=== PATIENT | female | born 1975 | race Caucasian/White ===

== ENCOUNTER → 2022-02-23 12:03 | Outpatient (CLI) | payer MEDICAID, SELFPAY ==
[2022-02-23 18:50] LABS: Basophils # 0.1 K/mm3 (0-0.2); Basophils % 0.7 % (0.1-2.0); Eosinophils # 0.2 K/mm3 (0.0-0.4); Eosinophils % 1.7 % (0.1-12.0); Hematocrit 45.1 % (37.0-47.0); Lymphocytes # 2.2 K/mm3 (0.7-4.5); Lymphocytes % 22.6 % (10-50); Mean Corpuscular Hemoglobin 27.4 pg (27.0-31.2); Mean Corpuscular Volume 88.2 fl (81-99); Mean Platelet Volume 8.8 fl (7.4-10.4); Monocytes # 0.5 K/mm3 (0.1-1.0); Monocytes % 4.9 % (1.7-9.3); Neutrophils # 6.8 K/mm3 (1.8-7.8); Neutrophils % 70.2 % (37.0-80.0); Platelet Count 351 K/mm3 (142-424); Red Blood Count 5.11 M/mm3 (4.20-5.40); Red Cell Distribution Width 16.9 % (11.5-17.5); White Blood Count 9.7 K/mm3 (4.8-10.8)
[2022-02-23 19:19] LABS: Alanine Aminotransferase 31 U/L (12-78); Albumin Level 3.5 g/dl (3.5-5.0); Albumin/Globulin Ratio 1.3 (1.1-1.8); Alkaline Phosphatase 135 U/L (38-126); Anion Gap 10.3 mEq/L (5-15); Aspartate Amino Transferase 29 U/L (14-36); Bilirubin,Total 0.4 mg/dl (0.2-1.3); Blood Urea Nitrogen 11 mg/dl (7-17); Calcium 8.9 mg/dl (8.4-10.2); Carbon Dioxide 29 mmol/L (22.0-30.0); Chloride 103 mmol/L (98-107); Chol/HDL Ratio 7.4 (1-3.5); Cholesterol 148 mg/dl (140-200); Estimated Glomerular Filt Rate 133 ml/min (>60); GFR (African American) 161 ML/MIN (>60); Globulin 2.6 g/dL (1.3-3.2); Glucose 111 mg/dl (74-100); HDL Cholesterol 20 mg/dl (40-60); Potassium 4.3 mmoL/L (3.5-5.1); Sodium 138 mmol/L (136-145); Total Protein,Serum 6.1 g/dl (6.3-8.2); Triglycerides 260 mg/dl (30-150); VLDL Cholesterol 52 mg/dL (0-40)
[2022-02-23 19:28] LABS: Hemoglobin A1C 5.9 % (4.0-6.0)
[2022-02-23 19:37] LABS: 25-OH Vitamin D, Total 27.7 ng/mL (30-100)
[2022-02-23 19:50] LABS: Thyroid Stimulating Hormone 3.36 uIU/mL (0.465-4.68)
== END ==
PROVIDERS: PCP Emergency Medicine; Visit Provider Nurse Practitioner Family
DX: D64.9 Anemia, unspecified (principal); R73.03 Prediabetes; J44.9 Chronic obstructive pulmonary disease, unspecified; E55.9 Vitamin D deficiency, unspecified; E66.01 Morbid (severe) obesity due to excess calories; Z68.43 Body mass index [BMI] 50.0-59.9, adult
CPT/HCPCS: 80053; 80061; 82306; 83036; 84436; 84443; 85025

== ENCOUNTER → 2022-04-27 13:11 | Outpatient (CLI) | payer MEDICAID, SELFPAY ==
--- NOTE | 2022-04-27 | CA_ITS ---
APPROVED REPORT EXAM: Comprehensive 2D, Doppler, and color-flow Echocardiogram Radiology Specialist: India Blake, KENDAL, RVS Ht: 5 ft 9 in Wt: 391lbs BSA: 2.75 BP: 132/78 mmHg Indications: SOB, COPD, Smoker, Morbid obesity, DM Echo Enhancing Agent Indication: pt declined contrast Comments: Technically limited exam due to extreme body habitus. 2D Dimensions IVSd 1.28 cm LVEF (Visual) 70.90 % PWd 1.03 cm LVDd 5.35 cm LVDs 3.18 cm Aortic Root 2.69 cm Left Atrium 3.70 cm LVOT 2.08 cm (M/F) 1.5-2.5 M-Mode Dimensions LA Diam 3.86 cm (1.9-4.0) Ao Diam 3.25 cm (2.0-3.7) EPSs 0.51 cm LV Diastology E Decel Time 220.00 (160-240 msec) E/A Ratio 1.08 MED E' 8.70 (< 7 cm/sec) MED A' 10.30 cm/s E'/MED E' Ratio 10.28 (>14) LAT E' 9.40 (<10 cm/sec) LAT A' 10.00 cm/s E/LAT E' Ratio 9.51 (>14) Aortic Valve LVOT Max 121.00 (70-110 cm/s) LVOT VTI 27.93 cm AoV Peak Charly. 163.00 (50-130 cm/s) AO Peak GR. 10.60 mmHg AO Mean GR. 5.20 (<5 mmHg) AO VTI 31.06 (18-25 cm) TIEN (VTI) 3.06 (2.5-4.5 cm2) Mitral Valve MV A Velocity 83.00 (40-130 cm/s) E/A Ratio 1.08 MV Decel. Time 220.00 (160-240 ms) Pulmonary Valve PV Peak Velocity 109.00 (50-150 cm/s) Tricuspid Valve TR P. Velocity 162.00 cm/s Left Ventricle Technically difficult study because of the patient factors and poor acoustic windows. Left atrium is mildly enlarged, left ventricle is normal size mild concentric left ventricular hypertrophy, estimated ejection fraction 55% with no regional wall motion abnormality, endocardial surfaces are poorly visualized, diastolic parameters are inconclusive. Right Ventricle Right atrium and right ventricle mildly enlarged with normal contractility. Aortic Valve Aortic valve is minimally thickened and fibrosed there is no aortic stenosis or aortic insufficiency. Mitral Valve Mitral valve is grossly normal there is trace mitral regurgitation. Tricuspid Valve Tricuspid valve grossly normal, there is trace tricuspid regurgitation, tricuspid regurgitation jet velocity is inadequate for calculation of the right ventricular systolic pressure. Pulmonic Valve Pulmonic valve is poorly visualized. Great Vessels Aortic root is normal size. Inferior vena cava is mildly dilated with less than 50% inspiratory collapse. Pericardium No significant pericardial effusion noted. Conclusion 1. Biatrial enlargement, normal left ventricular size, mild concentric left ventricular hypertrophy, estimated ejection fraction 55% with LAD wall motion abnormality, diastolic parameters are inconclusive in the study. 2. Mildly enlarged right ventricle with normal contractility. 3. Trace mitral and tricuspid regurgitation. 4. No significant pericardial effusion. 5. Inferior vena cava is mildly dilated with less than 50% inspiratory collapse. Electronically signed by : Christian Durant MD 04/27/2022 19:29:46
[2022-04-27 13:40] VITALS: PULSE 84; PULSE 87
== END ==
PROVIDERS: PCP Nurse Practitioner Family; Visit Provider Nurse Practitioner Family
DX: R06.02 Shortness of breath (principal); J44.9 Chronic obstructive pulmonary disease, unspecified
CPT/HCPCS: 93306; 94060; 94618; 94640; 94727; 94729

== ENCOUNTER → 2022-04-29 16:10 | Outpatient (CLI) | payer MEDICAID, SELFPAY ==
--- NOTE | 2022-04-29 16:10 | MM_ITS ---
PROCEDURE INFORMATION: Exam: MG Bilateral Screening 3D Mammography Exam date and time: 04/29/2022 4:10 PM Age: 46 years old Clinical indication: Screening examination. No family history of breast cancer. No history of breast intervention. TECHNIQUE: Imaging protocol: Bilateral Screening tomosynthesis and 2D mammography including computer-aided detection (CAD) when performed. COMPARISON: No relevant prior studies available.If prior mammograms are provided, I am happy to add an addendum. FINDINGS: MAMMOGRAPHY: Breast composition: The breasts are almost entirely fatty. Mass: None. Architectural distortion: None. Calcifications: No suspicious calcifications. Asymmetric density/Skin thickening: Possible right periareolar skin thickening and right retroareolar patchy asymmetry. Axillary adenopathy: None. IMPRESSION: Comparison to prior mammograms will be most helpful. If these are not provided within 2 weeks, patient will be recalled for right diagnostic mammogram with spot compression in the CC and MLO views as well as right breast ultrasound further evaluation of possible right periareolar skin thickening and right retroareolar patchy asymmetry. ASSESSMENT: BI-RADS Category 0: Incomplete- Need Additional Imaging Evaluation and/or Prior Mammograms for Comparison
== END ==
PROVIDERS: PCP Nurse Practitioner Family; Visit Provider Nurse Practitioner Family
DX: Z12.31 Encounter for screening mammogram for malignant neoplasm of breast (principal)
CPT/HCPCS: 77063; 77067

== ENCOUNTER → 2022-06-02 11:28 | Outpatient (CLI) | payer MEDICAID, SELFPAY ==
--- NOTE | 2022-06-02 11:28 | NM_ITS ---
APPROVED REPORT Exam: Nuclear Stress Test Indication: chest pain..short of breath..fatigue..abn ECG..abn Echo Patient Location: Outpatient Stress Tech: Leatha Michele [place] Tech:GUME Larson RT(R)(N) Ht: 5 ft 10 in Wt: 378 lbs Bra Size: 6x HR: 38 bpm BP: 135/83 mmHg BSA: 2.74 m2 TID: 1.22 BMI: 54.2 History: chest pain..short of breath..fatigue..abn ECG..abn Echo Procedure: Patient received a 0.4 mg of intravenous Lexiscan, resting heart rate 38 bpm, resting blood pressure 135/83 mmHg, with Lexiscan maximum heart rate achived was 91 bpm which is Less than 85 % of the maximum predicted heart rate and blood pressure was 162/100 mmHg. With Lexiscan, patient denied any complaint of chest pain. Patient was unable to lay on her belly for prone images. Electrocardiogram Resting electrocardiogram shows sinus rhythm, with Lexiscan less than 1.[address] segment depression noted from the baseline EKG. The EKG portion of the Lexiscan is nondiagnostic. Cardiac Stress and Resting SPECT Images: Cardiac Stress and Resting SPECT images were obtained using technetium 99m Myoview 32.7 mCi stress and 10.46 mCi at rest. Gated SPECT analysis of segmental wall motion and calculation of the ejection fraction also done. Cardiac stress and rest SPECT may show uniform myocardial activity without segmental perfusion abnormality, computer derived ejection fraction is over 65% with no regional wall motion abnormality, right ventricle is normal size and contractility. Conclusion: 1. The EKG portion of the Lexiscan is nondiagnostic. 2. No scintigraphic evidence of reversible ischemia seen, computer derived ejection fraction is over 65% with no regional wall motion abnormality, right ventricle is normal size and contractility. 3. Normal Lexiscan Myoview study. Electronically signed by : Christian Durant MD 06/02/2022 19:27:10
--- NOTE | 2022-06-02 13:15 | CA_ITS ---
APPROVED REPORT Exam: Pharmacologic Technologist: Leatha Michele, Ht: 5 ft 9 in Wt: 383 lbs BSA: 2.72 m2 HR: 66 bpm BP: 135/83 mmHg Indications: SOB Medical History Medications: Spiriva,,,,, Lexapro,,,,, Albuterol,,,,, Vit D3,,,,, Vistaril,,,,, Stress Test Details Test: LEXISCAN Reason for pharmacologic stress test: physical limitation. HR Resting HR: 38 bpm Max Heart Rate (APMHR): 175.958751 bpm Max HR Achieved: 91 bpm Target HR (85% APMHR): 148.226138 bpm % of APMHR: 52.00 Recovery HR: 80 bpm BP Resting BP: 135/83 mmHg Max BP: 162/100 mmHg Recovery BP: 146.0/89.0 mmHg ECG Resting ECG: NSR, right axis deviation, low voltage QRS, early repolarization changes Clinical Exercise duration: 04:00 min Highest Stage Achieved: Exercise capacity: 1.0 METs Stress ECG Conclusion Symptoms: SOA, mild stomach & head discomfort. No CP. Arrhythmias/Ectopy: None ST-T Changes: No significant changes. Conclusion: Unremarkable Lexiscan stress. Myoview images reported separately. Test Summary REST . . . . . . . Resting REST 04:43 . . 38 . 135/ 83 . . Stage 1 01:00 . . 18 . . . . Stage 2 01:00 . . . . . . . Stage 3 01:00 . . 56 . 162/100 . . Stage 4 01:00 . . 58 . 155/ 93 . Stop exercise at 04:00 RECOVERY 01:00 . . . . . . . RECOVERY 02:00 . . 47 . 147/ 87 . . RECOVERY 03:00 . . 86 . 146/ 89 . . RECOVERY 03:18 . . 70 . 146/ 89 . . Electronically signed by : Christian Durant MD 06/02/2022 19:25:06
== END ==
PROVIDERS: PCP Nurse Practitioner Family; Visit Provider Physician Assistant
DX: R06.02 Shortness of breath (principal)
CPT/HCPCS: 78452; 93017; A9502; J2785

== ENCOUNTER → 2022-06-10 07:33 | Outpatient (CLI) | payer SELFPAY ==
--- NOTE | 2022-06-10 07:40 | CT_ITS ---
FINAL REPORT CLINICAL HISTORY: heart palpitation, abn ekg, family hx Acute MO FINDINGS: CT CORONARY CALCIUM SCORE W/O TECHNIQUE: Thin-section axial images were obtained through the heart and coronary arteries per CT coronary calcium score protocol. This study was performed with techniques to keep radiation doses as low as reasonably achievable (ALARA). Individualized dose reduction techniques using automated exposure control or adjustment of mA and/or kV according to the patient's size were employed. FINDINGS: There is artifact on the images and the printed report is felt to be erroneous. On the axial images, there is no calcification seen. This gives a coronary artery calcium score of 0 based on the Agatston scale. This coronary artery calcium score places the patient within the 10th percentile based on age and gender. The heart size is normal. There is no pleural or pericardial effusion. Limited evaluation of the lungs reveal no suspicious nodule. IMPRESSION: Coronary artery calcium score of 0 based on the Agatston scale which places the patient in the 10th percentile based on age and gender. Reviewed, Interpreted and Dictated by Sukhdev Boswell III, MD Transcribed by Shirin Martell Authenticated and [facility]
== END ==
PROVIDERS: PCP Nurse Practitioner Family; Visit Provider Physician Assistant
DX: Z13.6 Encounter for screening for cardiovascular disorders (principal)
CPT/HCPCS: 75571

== ENCOUNTER → 2023-01-07 14:52 | Outpatient (CLI) | payer BC, SELFPAY ==
--- NOTE | 2023-01-07 15:13 | XR_ITS ---
FINAL REPORT CLINICAL HISTORY: SUNSHINE KNEE PAIN FINDINGS: AP, lateral and oblique views of the left knee were obtained. There is no prior exam for comparison. There is no acute osseous abnormality of the left knee. Fragmentation along the tibial tubercle is likely chronic. There is no joint effusion or other acute soft tissue abnormality. IMPRESSION: No acute osseous abnormality of the left knee. 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 If pain persists, MRI is recommended. Authenticated and [facility]
--- NOTE | 2023-01-07 15:13 | XR_ITS ---
FINAL REPORT CLINICAL HISTORY: SUNSHINE KNEE PAIN FINDINGS: AP, lateral and oblique views of the right knee were obtained. There is no prior exam for comparison. There is no acute osseous abnormality of the right knee. There is mild degenerative disease. The soft tissues are normal. There is no joint effusion. IMPRESSION: No acute osseous abnormality of the right knee. Authenticated and [facility]
[2023-01-07 15:37] LABS: Basophils # 0.1 K/mm3 (0-0.2); Basophils % 0.9 % (0.1-2.0); Eosinophils # 0.2 K/mm3 (0.0-0.4); Eosinophils % 1.5 % (0.1-12.0); Hematocrit 42.4 % (37.0-47.0); Hemoglobin 13.1 g/dL (12.2-16.2); Lymphocytes # 3.2 K/mm3 (0.7-4.5); Lymphocytes % 23.4 % (10-50); Mean Corpuscular HGB Conc 30.8 g/dL (31.8-35.4); Mean Corpuscular Hemoglobin 26.2 pg (27.0-31.2); Mean Corpuscular Volume 85.1 fl (81-99); Mean Platelet Volume 7.9 fl (7.4-10.4); Monocytes # 0.6 K/mm3 (0.1-1.0); Monocytes % 4.4 % (1.7-9.3); Neutrophils # 9.5 K/mm3 (1.8-7.8); Neutrophils % 69.8 % (37.0-80.0); Platelet Count 367 K/mm3 (142-424); Red Blood Count 4.98 M/mm3 (4.20-5.40); Red Cell Distribution Width 17.7 % (11.5-17.5); White Blood Count 13.6 K/mm3 (4.8-10.8)
[2023-01-13 08:20] LABS: D001-IgE D pteronyssinus 0.24 kU/L (Class 0/I); D002-IgE D farinae 0.27 kU/L (Class 0/I); E072-IgE Mouse Urine <0.10 kU/L (Class 0); G002-IgE Bermuda Grass 0.73 kU/L (Class II); G006-IgE Timothy Grass 0.65 kU/L (Class II); Immunoglobulin E, Total 434 IU/mL (6-495); M001-IgE Penicillium chrysogen 0.12 kU/L (Class 0/I); M002-IgE Cladosporium herbarum <0.10 kU/L (Class 0); M003-IgE Aspergillus fumigatus <0.10 kU/L (Class 0); M006-IgE Alternaria alternata 0.62 kU/L (Class II); T003-IgE Common Silver Birch 0.23 kU/L (Class 0/I); T006-IgE Cedar, Mountain 0.24 kU/L (Class 0/I); T007-IgE Oak, White 0.37 kU/L (Class I); T008-IgE Elm, American 0.32 kU/L (Class I); T010-IgE Walnut 0.38 kU/L (Class I); T011-IgE Maple Leaf Sycamore 0.46 kU/L (Class I); T014-IgE Cottonwood 0.21 kU/L (Class 0/I); T015-IgE Ash, White 0.42 kU/L (Class I); T022-IgE Pecan, Hickory 0.22 kU/L (Class 0/I); W001-IgE Ragweed, Short 0.69 kU/L (Class II); W011-IgE Thistle, Russian 1.21 kU/L (Class II); W014-IgE Pigweed, Common 0.31 kU/L (Class 0/I); W018-IgE Sheep Sorrel 0.96 kU/L (Class II)
== END ==
PROVIDERS: PCP Nurse Practitioner Family; Visit Provider Internal Medicine Pulmonary Disease
DX: J45.909 Unspecified asthma, uncomplicated (principal)
CPT/HCPCS: 36415; 73562; 82785; 85025; 86003

== ENCOUNTER 2023-01-26 11:03 | Emergency (ER) | payer BC, SELFPAY ==
--- NOTE | 2023-01-26 11:11 | XR_ITS ---
FINAL REPORT CLINICAL HISTORY: soa cough COMPARISON: 02/18/2017 FINDINGS: The heart size is normal. The mediastinum is normal. There are mild chronic changes in the lung bases There are no pleural effusions. There is no pneumothorax. There is no osseous abnormality. IMPRESSION: No acute cardiopulmonary process Reviewed, Interpreted and Dictated by Jose Manuel Hilario MD Transcribed by María Morales Authenticated and [facility]
--- NOTE | 2023-01-26 11:11 | PC.NURSE ---
Called RT for uri neb
--- NOTE | 2023-01-26 11:15 | XR_ITS ---
FINAL REPORT CLINICAL HISTORY: sore throat COMPARISON: None FINDINGS: NECK SOFT TISSUE Two views of the neck using soft tissue technique were obtained. No prevertebral soft tissue swelling. There are minimal hypertrophic changes at C5-6. The patient is edentulous. IMPRESSION: Unremarkable neck exam using soft tissue technique. Reviewed, Interpreted and Dictated by Jose Manuel Hilario MD Transcribed by María Morales Authenticated and [facility]
[2023-01-26 11:16] VITALS: BP 133/69; PULSE 90; RESP 18; TEMP 36.9; O2SAT 96; BMI 56.5
[2023-01-26 11:25] VITALS: PULSE 111; O2SAT 95
[2023-01-26 11:27] LABS: Coronavirus 19, PCR Not Detected (NotDetected); Influenza A, PCR Not Detected (NotDetected); Influenza B, PCR Not Detected (NotDetected)
--- NOTE | 2023-01-26 11:27 | PC.NURSE ---
PT REFUSED THE TYLENOL SHE STATES ITS LIKE TAKING CANDY
[2023-01-26 11:30] VITALS: PULSE 91; O2SAT 99
[2023-01-26 11:40] LABS: Strep Scrn Group A (Rapid) Negative (Negative)
--- NOTE | 2023-01-26 11:40 | HMH.EDGENADL ---
Discharge Plan Disposition Patient Disposition: Home, Self-Care Prescriptions Prescriptions: New azithromycin [azithromycin] 500 mg tablet 500 mg PO DAILY Qty: 3 0RF fatzsrdeyhrkqjk-twgqfiwdt-[id number] [Bromfed DM] 2-30-10 mg/5 mL syrup 5 ml PO Q6H PRN (Reason: cold symptoms) 7 Days Qty: 118 0RF No Action (DME) Blood Glucose Test Strip See Rx Instructions .Route Qty: 50 3RF Rx Instructions: BID (DME) lancets [Acti-Arun Lancets] 28 gauge misc See Rx Instructions .Route Qty: 100 0RF Rx Instructions: BID (DME) blood-glucose meter [Blood Glucose Monitoring] Kit See Rx Instructions .Route Qty: 1 0RF Rx Instructions: BID budesonide-formoterol [Symbicort] 160-4.5 mcg/actuation HFA aerosol inhaler 2 puff IH BID 90 Days Qty: 10.2 3RF fluticasone propionate [Flonase Allergy Relief] 50 mcg/actuation spray,suspension 1 spray NS BID 90 Days Qty: 16 3RF Rx Instructions: administer into each nostril chlorhexidine gluconate [Hibiclens] 4 % liquid 1 applic TP ONCE 0 Days Qty: 237 0RF sulfamethoxazole-trimethoprim [Bactrim DS] 800-160 mg tablet 1 tab PO BID 7 Days Qty: 14 0RF ipratropium-albuterol 0.5 mg-3 mg(2.5 mg base)/3 mL solution for nebulization 3 ml INHALATION Q6H PRN (Reason: shortness of breath or wheezing) Qty: 180 3RF albuterol sulfate 90 mcg/actuation HFA aerosol inhaler 2 inh IH Q6H PRN (Reason: shortness of breath or wheezing) 90 Days Qty: 8.5 3RF hydroxyzine pamoate [Vistaril] 25 mg capsule 25 mg PO TID PRN (Reason: itching) Qty: 60 0RF albuterol sulfate [ProAir HFA] 90 mcg/actuation HFA aerosol inhaler See Rx Instructions .ROUTE .COMPLEX Qty: 9 0RF Dose Instruction: INHALE 2 PUFFS BY MOUTH EVERY 4 TO 6 HOURS NEEDED FOR SHORTNESS OF BREATH OR WHEEZING Rx Instructions: INHALE 2 PUFFS BY MOUTH EVERY 4 TO 6 HOURS NEEDED FOR SHORTNESS OF BREATH OR WHEEZING valsartan 160 mg tablet 160 mg PO DAILY Qty: 90 3RF escitalopram oxalate 10 mg tablet See Rx Instructions .ROUTE .COMPLEX Qty: 90 0RF Dose Instruction: Take 1 tablet by mouth once daily Rx Instructions: Take 1 tablet by mouth once daily cholecalciferol (vitamin D3) [Vitamin D3] 50 mcg (2,000 unit) capsule See Rx Instructions .ROUTE .COMPLEX Qty: 30 0RF Dose Instruction: Take 1 capsule by mouth once daily Rx Instructions: Take 1 capsule by mouth once daily cholecalciferol (vitamin D3) 1,250 mcg (50,000 unit) capsule See Rx Instructions .ROUTE .COMPLEX Qty: 7 0RF Dose Instruction: Take 1 capsule by mouth once a week Rx Instructions: Take 1 capsule by mouth once a week metformin 500 mg tablet See Rx Instructions .ROUTE .COMPLEX Qty: 180 0RF Dose Instruction: Take 1 tablet by mouth twice daily Rx Instructions: Take 1 tablet by mouth twice daily Referrals Follow up/Referrals: Yenny Dhillon APRN [Primary Care Provider] - See instructions Clinical Impressions Clinical Impression: Pharyngitis Discharge ED Provider: Lamin Carrasquillo General Adult HPI General Chief complaint: Headache Stated complaint: Sore throat, loss of voice Time Seen by Provider: 01/26/23 11:05 Mode of Arrival: Ambulatory Source of Information: Patient Limitations: No Limitations Description of Symptoms (Recalled from ER Triage Doc. by RN): pt comes in with c/o sore throat, headache, fatigue, symptoms ongoing for 4 days. pt states that she does have allergies. History of Present Illness HPI narrative: 47-year-old female with sore throat headache and fatigue for 4 days. She is able to swallow and speak in full sentences. She has mild laryngitis. No difficulty breathing however does have mild cough. She says that her throat is on fire. She has a dull frontal headache as well no fever no neck stiffness. Related Data Previous Rx's Medication Instructions Recorded hydroxyzine pamoate 25 mg capsule 2
[2023-01-26 11:45] VITALS: PULSE 86; O2SAT 94
[2023-01-26 12:00] VITALS: PULSE 95; O2SAT 94
--- NOTE | 2023-01-26 13:09 | PC.NURSE ---
PATIENT SITTING ON SIDE OF BED, PATIENT GIVEN ICE CHIPS
[2023-01-26 13:32] VITALS: BP 135/69; PULSE 77; RESP 19; TEMP 36.8; O2SAT 96
== END 2023-01-26 13:33 | disposition home or self-care (01) ==
PROVIDERS: Emergency Provider Emergency Medicine; PCP Nurse Practitioner Family
DX: J02.9 Acute pharyngitis, unspecified (principal); R51.9 Headache, unspecified; R53.83 Other fatigue
CPT/HCPCS: 70360; 71045; 87430; 99284; 99285; C9803; U0003; U0005

== ENCOUNTER 2023-02-05 18:17 | Emergency (ER) | payer BC, SELFPAY ==
[2023-02-05 18:33] VITALS: BP 133/74; PULSE 89; RESP 16; O2SAT 96; BMI 55.3
--- NOTE | 2023-02-05 19:05 | EXP.UTC ---
Discharge Plan Disposition Patient Disposition: Still a Patient Prescriptions Prescriptions: No Action (DME) Blood Glucose Test Strip See Rx Instructions .Route Qty: 50 3RF Rx Instructions: BID (DME) lancets [Acti-Arun Lancets] 28 gauge misc See Rx Instructions .Route Qty: 100 0RF Rx Instructions: BID (DME) blood-glucose meter [Blood Glucose Monitoring] Kit See Rx Instructions .Route Qty: 1 0RF Rx Instructions: BID budesonide-formoterol [Symbicort] 160-4.5 mcg/actuation HFA aerosol inhaler 2 puff IH BID 90 Days Qty: 10.2 3RF fluticasone propionate [Flonase Allergy Relief] 50 mcg/actuation spray,suspension 1 spray NS BID 90 Days Qty: 16 3RF Rx Instructions: administer into each nostril chlorhexidine gluconate [Hibiclens] 4 % liquid 1 applic TP ONCE 0 Days Qty: 237 0RF sulfamethoxazole-trimethoprim [Bactrim DS] 800-160 mg tablet 1 tab PO BID 7 Days Qty: 14 0RF ipratropium-albuterol 0.5 mg-3 mg(2.5 mg base)/3 mL solution for nebulization 3 ml INHALATION Q6H PRN (Reason: shortness of breath or wheezing) Qty: 180 3RF albuterol sulfate 90 mcg/actuation HFA aerosol inhaler 2 inh IH Q6H PRN (Reason: shortness of breath or wheezing) 90 Days Qty: 8.5 3RF hydroxyzine pamoate [Vistaril] 25 mg capsule 25 mg PO TID PRN (Reason: itching) Qty: 60 0RF albuterol sulfate [ProAir HFA] 90 mcg/actuation HFA aerosol inhaler See Rx Instructions .ROUTE .COMPLEX Qty: 9 0RF Dose Instruction: INHALE 2 PUFFS BY MOUTH EVERY 4 TO 6 HOURS NEEDED FOR SHORTNESS OF BREATH OR WHEEZING Rx Instructions: INHALE 2 PUFFS BY MOUTH EVERY 4 TO 6 HOURS NEEDED FOR SHORTNESS OF BREATH OR WHEEZING valsartan 160 mg tablet 160 mg PO DAILY Qty: 90 3RF escitalopram oxalate 10 mg tablet See Rx Instructions .ROUTE .COMPLEX Qty: 90 0RF Dose Instruction: Take 1 tablet by mouth once daily Rx Instructions: Take 1 tablet by mouth once daily cholecalciferol (vitamin D3) [Vitamin D3] 50 mcg (2,000 unit) capsule See Rx Instructions .ROUTE .COMPLEX Qty: 30 0RF Dose Instruction: Take 1 capsule by mouth once daily Rx Instructions: Take 1 capsule by mouth once daily cholecalciferol (vitamin D3) 1,250 mcg (50,000 unit) capsule See Rx Instructions .ROUTE .COMPLEX Qty: 7 0RF Dose Instruction: Take 1 capsule by mouth once a week Rx Instructions: Take 1 capsule by mouth once a week metformin 500 mg tablet See Rx Instructions .ROUTE .COMPLEX Qty: 180 0RF Dose Instruction: Take 1 tablet by mouth twice daily Rx Instructions: Take 1 tablet by mouth twice daily azithromycin [azithromycin] 500 mg tablet 500 mg PO DAILY Qty: 3 0RF dcuucdcxbbunaxv-ulvcoxtek-UC [Bromfed DM] 2-30-10 mg/5 mL syrup 5 ml PO Q6H PRN (Reason: cold symptoms) 7 Days Qty: 118 0RF Referrals Follow up/Referrals: Yenny Dhillon APRN [Primary Care Provider] - See instructions Clinical Impressions Clinical Impression: Abscess Discharge ED Provider: Samantha ([facility])Angella [facility] [place] H[place] General Stated complaint: boil LT thigh Mode of Arrival: Ambulatory Source of Information: Patient Limitations: No Limitations Time Seen by Provider: 02/05/23 19:05 Description of Symptoms (Recalled from Triage Doc. by RN): c/o a open area on left inner thigh, pt states that she had a boil there and its been draining, her boyfriend seen it tonight and said it had a valley in it. Two open area noted with no drainage or redness at this time. History of Present Illness Provider Complaint: 47 yr old female c/o a open area on left inner thigh, pt states that she had a boil there and its been draining, her boyfriend seen it tonight and said it had a valley in it. pt states when she sits and gets up there will be a puddle of drainage. Related Data Previous Rx's Medication Instructions Recorded hydroxyzine pamoate 25 mg capsule 25 mg PO
--- NOTE | 2023-02-05 19:29 | PC.NURSE ---
wound packed with wet and dry. Pt and family verbalize teach back on packing wound at home
[2023-02-05 19:35] VITALS: BP 137/84; PULSE 69; RESP 19; TEMP 36.5; O2SAT 97
--- NOTE | 2023-02-05 19:46 | HMH.EDGENADL ---
Discharge Plan Disposition Patient Disposition: Home, Self-Care Condition: Fair Prescriptions Prescriptions: New sulfamethoxazole-trimethoprim [Bactrim DS] 800-160 mg tablet 1 tab PO BID 7 Days Qty: 14 0RF No Action (DME) Blood Glucose Test Strip See Rx Instructions .Route Qty: 50 3RF Rx Instructions: BID (DME) lancets [Acti-Arun Lancets] 28 gauge misc See Rx Instructions .Route Qty: 100 0RF Rx Instructions: BID (DME) blood-glucose meter [Blood Glucose Monitoring] Kit See Rx Instructions .Route Qty: 1 0RF Rx Instructions: BID budesonide-formoterol [Symbicort] 160-4.5 mcg/actuation HFA aerosol inhaler 2 puff IH BID 90 Days Qty: 10.2 3RF fluticasone propionate [Flonase Allergy Relief] 50 mcg/actuation spray,suspension 1 spray NS BID 90 Days Qty: 16 3RF Rx Instructions: administer into each nostril chlorhexidine gluconate [Hibiclens] 4 % liquid 1 applic TP ONCE 0 Days Qty: 237 0RF sulfamethoxazole-trimethoprim [Bactrim DS] 800-160 mg tablet 1 tab PO BID 7 Days Qty: 14 0RF ipratropium-albuterol 0.5 mg-3 mg(2.5 mg base)/3 mL solution for nebulization 3 ml INHALATION Q6H PRN (Reason: shortness of breath or wheezing) Qty: 180 3RF albuterol sulfate 90 mcg/actuation HFA aerosol inhaler 2 inh IH Q6H PRN (Reason: shortness of breath or wheezing) 90 Days Qty: 8.5 3RF hydroxyzine pamoate [Vistaril] 25 mg capsule 25 mg PO TID PRN (Reason: itching) Qty: 60 0RF albuterol sulfate [ProAir HFA] 90 mcg/actuation HFA aerosol inhaler See Rx Instructions .ROUTE .COMPLEX Qty: 9 0RF Dose Instruction: INHALE 2 PUFFS BY MOUTH EVERY 4 TO 6 HOURS NEEDED FOR SHORTNESS OF BREATH OR WHEEZING Rx Instructions: INHALE 2 PUFFS BY MOUTH EVERY 4 TO 6 HOURS NEEDED FOR SHORTNESS OF BREATH OR WHEEZING valsartan 160 mg tablet 160 mg PO DAILY Qty: 90 3RF escitalopram oxalate 10 mg tablet See Rx Instructions .ROUTE .COMPLEX Qty: 90 0RF Dose Instruction: Take 1 tablet by mouth once daily Rx Instructions: Take 1 tablet by mouth once daily cholecalciferol (vitamin D3) [Vitamin D3] 50 mcg (2,000 unit) capsule See Rx Instructions .ROUTE .COMPLEX Qty: 30 0RF Dose Instruction: Take 1 capsule by mouth once daily Rx Instructions: Take 1 capsule by mouth once daily cholecalciferol (vitamin D3) 1,250 mcg (50,000 unit) capsule See Rx Instructions .ROUTE .COMPLEX Qty: 7 0RF Dose Instruction: Take 1 capsule by mouth once a week Rx Instructions: Take 1 capsule by mouth once a week metformin 500 mg tablet See Rx Instructions .ROUTE .COMPLEX Qty: 180 0RF Dose Instruction: Take 1 tablet by mouth twice daily Rx Instructions: Take 1 tablet by mouth twice daily azithromycin [azithromycin] 500 mg tablet 500 mg PO DAILY Qty: 3 0RF ksdbyvofrhmhqjp-nlvhhhcgu-RB [Bromfed DM] 2-30-10 mg/5 mL syrup 5 ml PO Q6H PRN (Reason: cold symptoms) 7 Days Qty: 118 0RF Referrals Follow up/Referrals: Yenny Dhillon APRN [Primary Care Provider] - See instructions Leobardo Padilla MD [Staff Physician] - See instructions Activity Restrictions/Add. Instructions Additional Instructions/Restrictions: I have put in a referral for you for one of the surgeons here to see if this is something he would feel comfortable managing. I also recommended that you talk with your PCP about getting you a referral to plastic surgery at [facility] to see if this needs any management as I am concerned that you have hidradenitis suppurativa Clinical Impressions Clinical Impression: Wound dehiscence Instructions Patient Instructions: How to Pack a Wound Discharge ED Provider: Davian Thomas General Adult HPI General Stated complaint: boil LT thigh Time Seen by Provider: 02/05/23 19:05 Mode of Arrival: Ambulatory Source of Information: Patient Limitations: No Limitations Descripti
== END 2023-02-05 19:36 | disposition home or self-care (01) ==
LOC: ER 18:36 → UTC 18:36 → ER 19:05
PROVIDERS: Emergency Provider Student in an Organized Health Care Education/Training Program; PCP Nurse Practitioner Family
DX: S71.102A Unspecified open wound, left thigh, initial encounter (principal); X58.XXXA Exposure to other specified factors, initial encounter
CPT/HCPCS: 99283; 99284

== ENCOUNTER 2023-03-02 09:00 | Outpatient (RCR) | payer BC, SELFPAY | END 2023-03-02 09:05 | disposition home or self-care (01) | LOC: PT 09:00 | PROVIDERS: PCP Nurse Practitioner Family; Visit Provider Physician Assistant | DX: M17.0 Bilateral primary osteoarthritis of knee (principal) | CPT/HCPCS: 97033; 97110; 97163 ==

== ENCOUNTER → 2023-07-07 12:27 | Outpatient (CLI) | payer BC, SELFPAY ==
[2023-07-08 13:22] LABS: Alpha-1-Antitrypsin 189 mg/dL (101-187)
[2023-07-14 17:11] LABS: Alpha-1-Antitrypsin 192 mg/dL (101-187)
== END ==
LOC: LAB 12:27
PROVIDERS: PCP Nurse Practitioner Family; Visit Provider Internal Medicine Pulmonary Disease
DX: J44.9 Chronic obstructive pulmonary disease, unspecified (principal); Z82.5 Family history of asthma and other chronic lower respiratory diseases
CPT/HCPCS: 36415; 82103; 82104

== ENCOUNTER → 2023-10-18 08:25 | Outpatient (CLI) | payer BC, SELFPAY ==
--- NOTE | 2023-10-18 08:38 | XR_ITS ---
FINAL REPORT TECHNIQUE: 5 views CLINICAL HISTORY: RT SIDE SCIATICA PAIN FINDINGS: There is no fracture present. There is no malalignment. There is mild anterior osteophyte formation at L2-L3 and L3-L4. IMPRESSION: No acute process. Reviewed, Interpreted and Dictated by Jose Manuel Hilario MD Transcribed by Ivan Madera Authenticated and [facility]
== END ==
PROVIDERS: PCP Nurse Practitioner Family; Visit Provider Nurse Practitioner Family
DX: M54.31 Sciatica, right side (principal)
CPT/HCPCS: 72110

== ENCOUNTER 2023-11-08 11:07 | Outpatient (CLI) | payer BC, MEDICAID, SELFPAY ==
[2023-11-08 11:21] LABS: Basophils % 0.4 % (0.1-2.0); Eosinophils # 0.2 K/mm3 (0.0-0.4); Eosinophils % 2.3 % (0.1-12.0); Hematocrit 42.5 % (37.0-47.0); Hemoglobin 13.8 g/dL (12.2-16.2); Lymphocytes # 2.3 K/mm3 (0.7-4.5); Lymphocytes % 23.6 % (10-50); Mean Corpuscular HGB Conc 32.3 g/dL (31.8-35.4); Mean Corpuscular Hemoglobin 28.7 pg (27.0-31.2); Mean Corpuscular Volume 88.8 fl (81-99); Mean Platelet Volume 7.9 fl (7.4-10.4); Monocytes # 0.5 K/mm3 (0.1-1.0); Monocytes % 4.9 % (1.7-9.3); Neutrophils # 6.6 K/mm3 (1.8-7.8); Neutrophils % 68.7 % (37.0-80.0); Platelet Count 307 K/mm3 (142-424); Red Blood Count 4.79 M/mm3 (4.20-5.40); Red Cell Distribution Width 15.5 % (11.5-17.5); White Blood Count 9.6 K/mm3 (4.8-10.8)
[2023-11-08 12:05] LABS: Alanine Aminotransferase 23 U/L (12-78); Albumin Level 3.6 g/dl (3.5-5.0); Albumin/Globulin Ratio 1.3 (1.1-1.8); Alkaline Phosphatase 115 U/L (38-126); Anion Gap 7.2 mEq/L (5-15); Aspartate Amino Transferase 27 U/L (14-36); Bilirubin,Total 0.3 mg/dl (0.2-1.3); Blood Urea Nitrogen 13 mg/dl (7-17); Calcium 9.1 mg/dl (8.4-10.2); Carbon Dioxide 32 mmol/L (22.0-30.0); Chloride 101 mmol/L (98-107); Estimated Glomerular Filt Rate 77 ml/min (>60); GFR (African American) 93 ML/MIN (>60); Globulin 2.7 g/dL (1.3-3.2); Glucose 92 mg/dl (74-100); Potassium 4.2 mmoL/L (3.5-5.1); Sodium 136 mmol/L (136-145); Total Protein,Serum 6.3 g/dl (6.3-8.2)
[2023-11-08 12:36] LABS: Thyroid Stimulating Hormone 1.22 uIU/mL (0.465-4.68)
[2023-11-08 16:22] LABS: Vitamin B12 938 pg/mL (239-931)
== END 2023-11-08 23:59 ==
LOC: LAB 11:08
PROVIDERS: PCP Nurse Practitioner Family; Visit Provider Nurse Practitioner Family
DX: R40.4 Transient alteration of awareness (principal); Z86.69 Personal history of other diseases of the nervous system and sense organs
CPT/HCPCS: 36415; 80053; 82607; 84443; 85025

== ENCOUNTER 2023-11-09 08:41 | Outpatient (CLI) | payer BC, MEDICAID, SELFPAY ==
--- NOTE | 2023-11-09 08:54 | XR_ITS ---
FINAL REPORT CLINICAL HISTORY: . 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 No fracture is identified. The sinuses are clear. No foreign body is identified. IMPRESSION: No acute process. Reviewed, Interpreted and Dictated by Sukhdev Boswell III, MD Transcribed by Devorah Allen Authenticated and [facility]
[2023-11-09 12:49] LABS: Folate > 20.00 ng/mL
== END 2023-11-09 23:59 ==
LOC: RAD 08:42
PROVIDERS: PCP Nurse Practitioner Family; Visit Provider Nurse Practitioner Family
DX: R40.4 Transient alteration of awareness (principal); Z86.69 Personal history of other diseases of the nervous system and sense organs
CPT/HCPCS: 70200; 82746

== ENCOUNTER 2023-11-09 09:36 | Outpatient (CLI) | payer BC, MEDICAID, SELFPAY | END 2023-11-09 23:59 | LOC: RT 09:38 | PROVIDERS: PCP Nurse Practitioner Family; Visit Provider Nurse Practitioner Family | DX: R40.4 Transient alteration of awareness (principal); Z86.69 Personal history of other diseases of the nervous system and sense organs | CPT/HCPCS: 95819 ==

== ENCOUNTER 2023-12-19 13:34 | Outpatient (CLI) | payer BC, SELFPAY ==
--- NOTE | 2023-12-19 13:39 | MR_ITS ---
FINAL REPORT CLINICAL HISTORY: LOW BACK PAIN. BILATERAL LEG PAIN WORSE ON RIGHT SIDE. FINDINGS: Multiplanar MR imaging of the lumbar spine was performed without contrast. On the sagittal T2-weighted images, disc degeneration is seen at multiple levels. Endplate changes are seen at several levels, greatest at T11-12 and L3-4. A Schmorl's node is seen involving the inferior endplate of L3 with adjacent endplate change. The vertebral alignment is normal. There is no evidence of fracture. No bony mass is identified. The conus has an unremarkable appearance. T11-12: An annular bulge is present with vertebral osteophytes and bilateral facet arthropathy. Mild right and moderate left neural foraminal narrowing is seen. T12-L1: Unremarkable. L1-2: Unremarkable. L2-3: Unremarkable. L3-4: An annular bulge is present. A broad-based right foraminal disc protrusion is present. Mild right neural foraminal narrowing is seen. L4-5: An annular bulge is present. There is bilateral facet arthropathy. Mild bilateral neural foraminal narrowing is seen. L5-S1: An annular bulge is present. Bilateral facet arthropathy is present. There is mild bilateral neural foraminal narrowing. IMPRESSION: Multilevel degenerative disc disease and spondylosis as described. Broad-based right foraminal L3-4 disc protrusion with mild right neural foraminal narrowing. Authenticated and [facility]
== END 2023-12-19 23:59 ==
LOC: RAD 13:35
PROVIDERS: PCP Nurse Practitioner Family; Visit Provider Nurse Practitioner Family
DX: M54.50 Low back pain, unspecified (principal)
CPT/HCPCS: 72148; 76376

== ENCOUNTER 2024-01-04 08:03 | Outpatient (CLI) | payer BC, SELFPAY ==
--- NOTE | 2024-01-04 08:05 | MR_ITS ---
FINAL REPORT TECHNIQUE: Multiplanar and multisequence imaging of the brain was obtained before and after contrast administration. CLINICAL HISTORY: seizure 30ml prohance injected COMPARISON: None FINDINGS: The gyri and sulci are within normal limits for age. There is no mass effect or midline shift. Signal intensity is normal. No hydrocephalus. The cerebellum and brainstem have an unremarkable appearance. There are no areas of restricted diffusion on diffusion weighted images to suggest acute infarct. Soft tissues are without acute abnormality. No pathologic contrast enhancement is identified. IMPRESSION: No acute intracranial abnormality and no pathologic contrast enhancement. Reviewed, Interpreted and Dictated by Mery Mahmood MD Transcribed by Devorah Allen Authenticated and [facility]
[2024-01-04] MEDS: GADOTERIDOL INJ 17ML SYRINGE 30 ML IV (09:00)
[2024-01-04] MEDS: SODIUM CHLORIDE 0.9% 10ML SYR (RAD ONLY) 10 ML IV (09:00)
== END 2024-01-04 23:59 ==
LOC: RAD 08:05
PROVIDERS: PCP Nurse Practitioner Family; Visit Provider Nurse Practitioner Family
DX: R40.4 Transient alteration of awareness (principal); Z86.69 Personal history of other diseases of the nervous system and sense organs
CPT/HCPCS: 70553; A9576

== ENCOUNTER 2024-04-10 16:02 | Outpatient (CLI) | payer BC, SELFPAY ==
--- NOTE | 2024-04-10 16:16 | MM_ITS ---
PROCEDURE INFORMATION: Exam: MG Bilateral Screening 3D Mammography Exam date and time: 04/10/2024 4:03 PM Age: 48 years old Clinical indication: Screening examination TECHNIQUE: Imaging protocol: Bilateral Screening tomosynthesis and 2D mammography including computer-aided detection (CAD) when performed. COMPARISON: MG MM DIG SCREENING MAMM BI W/CAD 04/29/2022 4:10 PM FINDINGS: MAMMOGRAPHY: Breast composition: The breasts are almost entirely fatty. Mass: None. Architectural distortion: None. Calcifications: No suspicious calcifications. Asymmetric density: None. Skin thickening: None. Axillary adenopathy: None. IMPRESSION: No mammographic evidence of malignancy. Annual screening is recommended unless otherwise clinically indicated. ASSESSMENT: BI-RADS Category 1: Negative
== END 2024-04-10 23:59 | disposition home or self-care (01) ==
LOC: RAD 16:02
PROVIDERS: PCP Nurse Practitioner Family; Visit Provider Nurse Practitioner Family
DX: Z12.31 Encounter for screening mammogram for malignant neoplasm of breast (principal); E66.01 Morbid (severe) obesity due to excess calories; Z68.42 Body mass index [BMI] 45.0-49.9, adult
CPT/HCPCS: 77063; 77067

== ENCOUNTER 2024-05-03 16:00 | Outpatient (RCR) | payer BC, SELFPAY | END 2024-05-03 17:00 | disposition home or self-care (01) | LOC: PT 16:00 | PROVIDERS: Visit Provider Nurse Practitioner Family | DX: M54.50 Low back pain, unspecified (principal) | CPT/HCPCS: 97010; 97014; 97110; 97163; 97164; 97530; 97535; G0283 ==

== ENCOUNTER 2024-09-04 22:12 | Observation (INO) | payer BC, SELFPAY ==
[2024-09-04 22:13] VITALS: BP 109/61; PULSE 99; RESP 22; TEMP 36.9; O2SAT 95; BMI 50.2
--- NOTE | 2024-09-04 22:17 | ED_ITS ---
Discharge Plan Disposition Patient Disposition: Admitted Prescriptions Prescriptions: No Action (DME) Blood Glucose Test Strip See Rx Instructions .Route Qty: 50 3RF Rx Instructions: BID (DME) lancets [Acti-Arun Lancets] 28 gauge misc See Rx Instructions .Route Qty: 100 0RF Rx Instructions: BID (DME) blood-glucose meter [Blood Glucose Monitoring] Kit See Rx Instructions .Route Qty: 1 0RF Rx Instructions: BID naproxen 500 mg tablet 500 mg PO BID Patient Comments: TAKE 1 TABLET BY MOUTH TWICE DAILY WITH FOOD cholecalciferol (vitamin D3) 125 mcg (5,000 unit) tablet 125 mcg PO DAILY Patient Comments: TAKE 1 TABLET BY MOUTH ONCE DAILY folic acid 1 mg tablet 1 mg PO DAILY rosuvastatin 10 mg tablet 10 mg PO DAILY semaglutide 0.25 mg or 0.5 mg (2 mg/3 mL) pen injector 1 mg SQ WEEKLY Rx Instructions: for 4 weeks azelastine 137 mcg (0.1 %) aerosol,spray 2 spray intranasal HS 90 Days Qty: 30 2RF Rx Instructions: administer into each nostril fluticasone propionate [Flonase Allergy Relief] 50 mcg/actuation spray,suspension 2 spray NS DAILY 90 Days Qty: 16 3RF Rx Instructions: administer into each nostril duloxetine 60 mg capsule,delayed release(DR/EC) 60 mg PO DAILY Patient Comments: TAKE 1 CAPSULE BY MOUTH ONCE DAILY DIRECTED chlorhexidine gluconate [Hibiclens] 4 % liquid 1 applic TP ONCE PRN triamcinolone acetonide 0.5 % cream topical Myrbetriq 25 mg tablet extended release 24 hr 25 mg PO DAILY docusate sodium 100 mg capsule 200 mg PO DAILY Patient Comments: TAKE 1 CAPSULE BY MOUTH TWICE DAILY AT BEDTIME NEEDED albuterol sulfate 90 mcg/actuation HFA aerosol inhaler 2 inh IH Q6H PRN (Reason: shortness of breath or wheezing) 90 Days Qty: 8.5 3RF buspirone 10 mg tablet 10 mg PO TID Patient Comments: TAKE 1 TABLET BY MOUTH THREE TIMES DAILY metformin 500 mg tablet See Rx Instructions .ROUTE .COMPLEX Qty: 180 0RF Dose Instruction: Take 1 tablet by mouth twice daily Rx Instructions: Take 1 tablet by mouth twice daily ipratropium-albuterol 0.5 mg-3 mg(2.5 mg base)/3 mL solution for nebulization 3 ml INHALATION Q6H PRN (Reason: shortness of breath or wheezing) Qty: 180 3RF budesonide-formoterol [Symbicort] 160-4.5 mcg/actuation HFA aerosol inhaler 2 puff IH BID 90 Days Qty: 10.2 3RF valsartan-hydrochlorothiazide 320-12.5 mg tablet See Rx Instructions .ROUTE .COMPLEX Qty: 90 3RF Dose Instruction: Take 1 tablet by mouth once daily Rx Instructions: Take 1 tablet by mouth once daily montelukast 10 mg tablet See Rx Instructions .ROUTE .COMPLEX Qty: 90 0RF Dose Instruction: Take 1 tablet by mouth once daily Rx Instructions: Take 1 tablet by mouth once daily Referrals Follow up/Referrals: Yenny Dhillon APRN [Primary Care Provider] - See instructions Clinical Impressions Clinical Impression: Asthma exacerbation, Shortness of breath, Frequent PVCs, Respiratory failure with hypoxia Print Language Print Language: Vietnamese Discharge ED Provider: Dave Mcmillan [facility] <DANDRE Araujo - Last Filed: 09/04/24 22:31> General Chief Complaint: Shortness of Breath/Dyspnea Stated Complaint: SOA,indigestion Time Seen by Provider: 09/04/24 22:17 History of Present Illness HPI narrative: Patient presents for evaluation of shortness of breath. Patient gives a 1 week history of increasing shortness of breath. She has a known history of asthma, COPD, type 2 diabetes mellitus, hyperlipidemia, hypertension, obstructive sleep apnea. Patient's is also out of her Cymbalta which may be affecting as she feels like she is having a panic attack. She has tried all of her home remedies with no relief including inhalers. Patient is still smoking a pack a day. She denies cardiac chest pain fever chills hemoptysis hematochezia melena nausea vomit diarrhea. Related Data Home Medications ?Medication ?Instructions ?Recorded ?Confirmed buspirone 10 mg tablet 10 mg PO TID 02/08/23 02/14/24 folic acid 1 mg tablet 1 mg PO DAILY 07/07/23 02/14/24 rosuvastatin 10 mg tablet 10 mg PO DAILY 07/07/23 02/14/24 cholecalciferol (vitamin D3) 125 125 mcg PO DAILY 08/09/23 02/14/24 mcg (5,000 unit) tablet naproxen 500 mg tablet 500 mg PO BID 08/09/23 02/14/24 chlorhexidine gluconate 4 % 1 applic topical ONCE PRN 10/11/23 02/14/24 topical liquid (Hibiclens) triamcinolone acetonide 0.5 % applic topical 10/11/23 02/14/24 topical cream docusate sodium 100 mg capsule 200 mg PO DAILY 12/13/23 02/14/24 semaglutide 0.25 mg or 0.5 mg (2 1 mg SQ WEEKLY 01/09/24 02/14/24 mg/3 mL) subcutaneous pen injector duloxetine 60 mg capsule,delayed 60 mg PO DAILY 02/08/24 02/14/24 release mirabegron 25 mg tablet,extended 25 mg PO DAILY 02/08/24 02/14/24 release 24 hr (Myrbetriq) Previous Rx's ?Medication ?Instructions ?Recorded blood sugar diagnostic (Blood #50 ea 04/28/22 Glucose Test strips) blood-glucose meter (Blood Glucose #1 ea 04/28/22 Monitoring kit) lancets 28 gauge (Acti-Arun #100 ea 04/28/22 Lancets) albuterol sulfate 90 mcg/actuation 2 inh inhalation Q6H PRN shortness 06/15/22 aerosol inhaler of breath or wheezing 90 days #8.5 grams metformin 500 mg tablet See Rx Instructions .Route 12/17/22 .COMPLEX #180 tabs ipratropium 0.5 mg-albuterol 3 mg 3 ml inhalation Q6H PRN shortness 11/28/23 (2.5 mg base)/3 mL nebulization of breath or wheezing #180 mL soln azelastine 137 mcg (0.1 %) nasal 2 spray intranasal HS 90 days #30 01/09/24 spray mL fluticasone propionate 50 2 spray intranasal DAILY 90 days 01/09/24 mcg/actuation nasal #16 grams spray,suspension (Flonase Allergy Relief) budesonide-formoterol HFA 160 2 puff inhalation BID 90 days 06/26/24 mcg-4.5 mcg/actuation aerosol #10.2 grams inhaler (Symbicort) valsartan 320 See Rx Instructions .Route 07/17/24 mg-hydrochlorothiazide 12.5 mg .COMPLEX #90 tabs tablet montelukast 10 mg tablet See Rx Instructions .Route 09/03/24 .COMPLEX #90 tabs Allergies Allergy/AdvReac Type Severity Reaction Status Date / Time bupropion [From Wellbutrin] Allergy Severe Anaphylaxis Verified 05/28/24 07:34 aspirin [ASPIRIN] Allergy Mild Verified 05/28/24 07:34 doxycycline [DOXYCYCLINE] Allergy Mild Verified 05/28/24 07:34 alprazolam [From Xanax] AdvReac Severe Agitated Verified 05/28/24 07:34 PCN Allergy Mild Uncoded 05/28/24 07:34 PFSH <DANDRE Araujo - Last Filed: 09/04/24 22:31> [facility] [place] Disclaimer: The information contained in this section may have been updated after the patient was seen, as this information can be updated by other users. Medical History Diabetes mellitus Hyperlipidemia Allergic rhinitis Family history of emphysema Asthma Family history of asthma Tobacco abuse counseling Tobacco abuse disorder Dyspnea on exertion Smoking greater than 30 pack years Seasonal allergic rhinitis Moderate persistent asthma Morbid obesity HTN (hypertension), benign Hidradenitis suppurativa Surgical History History of carpal tunnel surgery Hx of cholecystectomy History of tonsillectomy History of hysterectomy Family History Other Cancer Coronary artery disease FHx: mental illness Heart attack Hyperlipidemia Hypertension No significant family history Stroke Social History Smoking Status: Current every day smoker tobacco type: cigarettes packs per day: 1 second hand exposure: Yes alcohol intake: never substance use type: marijuana current occupational status: unemployed Travel in the last 8 weeks: None housing: house Other Medical History Have you received the Pneumonia Vaccine: No <DANDRE Araujo - Last Filed: 09/04/24 22:31> ROS Obtained: Yes Systems reviewed as appropriate & no additional complaints except as documented Physical Exam <DANDRE Araujo - Last Filed: 09/04/24 22:31> General General appearance: alert and in no apparent distress Respiratory Respiratory exam: Present respiratory distress, wheezes and accessory muscle use Cardiovascular Cardiovascular exam: Present regular rate Neurological Exam Neurological exam: Present alert, oriented X3 and CN II-XII intact HEART Score <DANDRE Araujo - Last Filed: 09/04/24 22:31> HEART Score HEART Score assessment performed?: No <Suzan Tucker DO - Last Filed: 09/04/24 22:47> HEART Score History (anamnesis): Slightly suspicious ECG: Non-specific disturbance Age: 45-65 years Risk factors: 1-2 risk factors Critical Care <DANDRE Araujo - Last Filed: 09/04/24 22:31> Critical Care Time Critical Care Time: No <Dave Mcmillan MD - Last Filed: 09/05/24 01:24> Critical Care Time Critical Care Time: Yes Attestation: On 09/04/24, the high probability of a clinically significant, sudden or life threatening deterioration of the following system(s) respiratory required my full and direct attention, intervention and personal management. The time I documented below is in addition to time spent performing reported procedures but includes the following listed in this critical care notation. Total Time Total Critical Care Time: 40 Medical Decision Making <DANDRE Araujo - Last Filed: 09/04/24 22:31> Medical Records Medical records reviewed: Yes I reviewed the patient's medical records. Cristian Luis Pt receiving controlled substance: No Vital Signs Vital Signs: 09/04/24 22:13 09/04/24 22:31 09/04/24 23:05 Temperature 98.5 F Temperature Source Oral Pulse Rate 50 L 89 Pulse Rate [Right Radial] 99 H Respiratory Rate 22 18 25 H Blood Pressure 105/68 L 115/77 Blood Pressure [Right Arm] 109/61 L Blood Pressure Mean [Right Arm] 77 02 Sat by Pulse Oximetry 95 95 96 Oxygen Delivery Method Room Air 09/04/24 23:30 09/05/24 00:00 Temperature Temperature Source Pulse Rate 83 95 H Pulse Rate [Right Radial] Respiratory Rate 12 17 Blood Pressure 107/63 L 106/63 L Blood Pressure [Right Arm] Blood Pressure Mean [Right Arm] 02 Sat by Pulse Oximetry 91 L 92 L Oxygen Delivery Method Lab Data Lab results reviewed: Yes I reviewed the patient's lab results. Labs: Lab Results 09/04/24 22:25: WBC 14.9 H, RBC 5.07, Hgb 14.3, Hct 43.7, MCV 86.1, MCH 28.3, MCHC 32.8, RDW 15.5, Plt Count 354, MPV 7.3 L, Neut % (Auto) 64.6, Lymph % (Auto) 28.2, Rosebud % (Auto) 4.5, Eos % (Auto) 1.9, Baso % (Auto) 0.8, Neut # (Auto) 9.6 H, Lymph # (Auto) 4.2, Rosebud # (Auto) 0.7, Eos # (Auto) 0.3, Baso # (Auto) 0.1, VBG pH 7.38, VBG pCO2 41.7, VBG pO2 67.6 H, VBG HCO3 24.3, VBG Total CO2 25.6, VBG O2 Saturation 92.4 H, VBG Base Excess -0.8, VBG Lactic Acid 1.9, Sodium 139, Potassium 4.1, Chloride 104, Carbon Dioxide 29, Anion Gap 10.1, BUN 14, Creatinine 0.70, Estimated Creat Clear 106, Estimated GFR 89, Est GFR ( Amer) 108, Glucose 122 H, Calcium 9.3, Magnesium 1.6, Total Bilirubin 0.4, AST 28, ALT 25, Alkaline Phosphatase 117, Troponin I < 0.01, C-Reactive Protein 20.2 H, Total Protein 7.0, Albumin 4.0, Globulin 3.0, Albumin/Globulin Ratio 1.3, Procalcitonin 0.060, Chlamy pneumoniae PCR Not detected, Adenovirus (PCR) Not detected, B. pertussis DNA (PCR) Not detected, Coronavirus OC43 (PCR) Not detected, Coronavirus HKU1 (PCR) Not detected, Coronavirus 229E (PCR) Not detected, SARS-CoV-2 (PCR) Not detected, Coronavirus NL63 (PCR) Not detected, Human Metapneumovir PCR Not detected, Influenza A (H1) PCR Not detected, Influ A (H1N1/09) PCR Not detected, Influenza A (H3) PCR Not detected, Influenza Type A (PCR) Not detected, Influenza Type B (PCR) Not detected, M. pneumoniae (PCR) Not detected, Parainfluenza 1 (PCR) Not detected, Parainfluenza 2 (PCR) Not detected, Parainfluenza 3 (PCR) Not detected, Parainfluenza 4 (PCR) Not detected, RSV (PCR) Not detected, Entero/Rhino (PCR) Detected A 09/04/24 22:25 09/04/24 22:25 Response Orders (Tests/Meds): ED MEDICATIONS Discontinued Medications Generic Name Dose Route Start Last Admin Trade Name Freq PRN Reason Stop Dose Admin Albuterol/Ipratropium 9 ml 09/04/24 22:24 09/04/24 22:41 Ipratropium/Albuterol 3 Ml Neb IH 09/04/24 22:25 9 ml ONCE ONE Administration Belladonna Alkaloids 60 ml 09/05/24 00:09 09/05/24 00:17 Belladonna Alkaloids 60 Ml Ml PO 09/05/24 00:10 60 ml ONCE ONE Administration Dexamethasone Sodium Phosphate 10 mg 09/04/24 22:43 09/04/24 22:55 Dexamethasone 4mg/Ml 1ml Vial IV 09/04/24 22:44 10 mg ONCE ONE Administration Diphenhydramine HCl 50 mg 09/04/24 23:20 09/04/24 23:28 Diphenhydramine 50mg/Ml Vial IV 09/04/24 23:21 50 mg ONCE ONE Administration Duloxetine HCl 60 mg 09/04/24 22:26 09/04/24 22:52 Duloxetine 30mg Capsule.Dr PO 09/04/24 22:27 Not Given ONCE ONE Magnesium Sulfate 2 gm in 50 mls @ 50 mls/hr 09/04/24 22:43 09/04/24 22:55 Magnesium Sulfate 2gm/50ml Premix IV 09/04/24 23:42 50 mls/hr ONCE ONE Administration ORDERS Category Date Time Status XR chest portable Stat Exams 09/04/24 22:24 Completed CBC w/Auto Diff [Complete Blood Count Auto Diff] Stat Lab 09/04/24 22:25 Completed CMP [Comprehensive Metabolic Panel] Stat Lab 09/04/24 22:25 Completed CRP [C-Reactive Protein] Stat Lab 09/04/24 22:25 Completed Full Resp Panel w/COVID (H) Routine Lab 09/04/24 22:25 Completed Magnesium Stat Lab 09/04/24 22:25 Completed Procalcitonin Stat Lab 09/04/24 22:25 Completed Trop I [Troponin I] Stat Lab 09/04/24 22:25 Completed Troponin I Q3H Lab 09/05/24 01:30 Ordered Troponin I Q3H Lab 09/05/24 04:30 Ordered VBG [Venous Blood Gas] Stat RT 09/04/24 22:25 Completed MDM Narrative Medical Decision Narrative: In summary patient is a 49-year-old female who presents to the emergency department for evaluation of dyspnea. Patient is hemodynamically stable upon arrival, afebrile. Physical exam is remarkable for very diaphoretic 49-year-old female who is morbidly obese. She has increased work of breathing with accessory muscle use. Auscultation the breath sounds reveals diminished breath sounds at the bases with inspiratory and expiratory wheezing in all 4 judd. Heart sounds are normal patient appears to be normal sinus rhythm with frequent PVCs on the bedside monitor satting at 95% on room air. Differential diagnosis includes the OPD exacerbation with asthma, viral bacterial respiratory tract infection, ACS etc. Initial workup will be conducted with hematologic labs VBG twelve-lead EKG plain film chest x-ray. Initial interventions include Solu- Medrol and DuoNeb. Initial workup ordered and is pending at the time of handoff to Dr. Mcmillan at 2300 hrs. <Suzan Tucker, DO - Last Filed: 09/04/24 22:47> Vital Signs Vital Signs: 09/04/24 22:13 09/04/24 22:31 09/04/24 23:05 Temperature 98.5 F Temperature Source Oral Pulse Rate 50 L 89 Pulse Rate [Right Radial] 99 H Respiratory Rate 22 18 25 H Blood Pressure 105/68 L 115/77 Blood Pressure [Right Arm] 109/61 L Blood Pressure Mean [Right Arm] 77 02 Sat by Pulse Oximetry 95 95 96 Oxygen Delivery Method Room Air 09/04/24 23:30 09/05/24 00:00 Temperature Temperature Source Pulse Rate 83 95 H Pulse Rate [Right Radial] Respiratory Rate 12 17 Blood Pressure 107/63 L 106/63 L Blood Pressure [Right Arm] Blood Pressure Mean [Right Arm] 02 Sat by Pulse Oximetry 91 L 92 L Oxygen Delivery Method Lab Data Labs: Lab Results 09/04/24 22:25: WBC 14.9 H, RBC 5.07, Hgb 14.3, Hct 43.7, MCV 86.1, MCH 28.3, MCHC 32.8, RDW 15.5, Plt Count 354, MPV 7.3 L, Neut % (Auto) 64.6, Lymph % (Auto) 28.2, Rosebud % (Auto) 4.5, Eos % (Auto) 1.9, Baso % (Auto) 0.8, Neut # (Auto) 9.6 H, Lymph # (Auto) 4.2, Rosebud # (Auto) 0.7, Eos # (Auto) 0.3, Baso # (Auto) 0.1, VBG pH 7.38, VBG pCO2 41.7, VBG pO2 67.6 H, VBG HCO3 24.3, VBG Total CO2 25.6, VBG O2 Saturation 92.4 H, VBG Base Excess -0.8, VBG Lactic Acid 1.9, Sodium 139, Potassium 4.1, Chloride 104, Carbon Dioxide 29, Anion Gap 10.1, BUN 14, Creatinine 0.70, Estimated Creat Clear 106, Estimated GFR 89, Est GFR ( Amer) 108, Glucose 122 H, Calcium 9.3, Magnesium 1.6, Total Bilirubin 0.4, AST 28, ALT 25, Alkaline Phosphatase 117, Troponin I < 0.01, C-Reactive Protein 20.2 H, Total Protein 7.0, Albumin 4.0, Globulin 3.0, Albumin/Globulin Ratio 1.3, Procalcitonin 0.060, Chlamy pneumoniae PCR Not detected, Adenovirus (PCR) Not detected, B. pertussis DNA (PCR) Not detected, Coronavirus OC43 (PCR) Not detected, Coronavirus HKU1 (PCR) Not detected, Coronavirus 229E (PCR) Not detected, SARS-CoV-2 (PCR) Not detected, Coronavirus NL63 (PCR) Not detected, Human Metapneumovir PCR Not detected, Influenza A (H1) PCR Not detected, Influ A (H1N1/09) PCR Not detected, Influenza A (H3) PCR Not detected, Influenza Type A (PCR) Not detected, Influenza Type B (PCR) Not detected, M. pneumoniae (PCR) Not detected, Parainfluenza 1 (PCR) Not detected, Parainfluenza 2 (PCR) Not detected, Parainfluenza 3 (PCR) Not detected, Parainfluenza 4 (PCR) Not detected, RSV (PCR) Not detected, Entero/Rhino (PCR) Detected A Response Orders (Tests/Meds): ED MEDICATIONS Discontinued Medications Generic Name Dose Route Start Last Admin Trade Name Sahyla PRN Reason Stop Dose Admin Albuterol/Ipratropium 9 ml 09/04/24 22:24 09/04/24 22:41 Ipratropium/Albuterol 3 Ml Neb IH 09/04/24 22:25 9 ml ONCE ONE Administration Belladonna Alkaloids 60 ml 09/05/24 00:09 09/05/24 00:17 Belladonna Alkaloids 60 Ml Ml PO 09/05/24 00:10 60 ml ONCE ONE Administration Dexamethasone Sodium Phosphate 10 mg 09/04/24 22:43 09/04/24 22:55 Dexamethasone 4mg/Ml 1ml Vial IV 09/04/24 22:44 10 mg ONCE ONE Administration Diphenhydramine HCl 50 mg 09/04/24 23:20 09/04/24 23:28 Diphenhydramine 50mg/Ml Vial IV 09/04/24 23:21 50 mg ONCE ONE Administration Duloxetine HCl 60 mg 09/04/24 22:26 09/04/24 22:52 Duloxetine 30mg Capsule. PO 09/04/24 22:27 Not Given ONCE ONE Magnesium Sulfate 2 gm in 50 mls @ 50 mls/hr 09/04/24 22:43 09/04/24 22:55 Magnesium Sulfate 2gm/50ml Premix IV 09/04/24 23:42 50 mls/hr ONCE ONE Administration ORDERS Category Date Time Status XR chest portable Stat Exams 09/04/24 22:24 Completed CBC w/Auto Diff [Complete Blood Count Auto Diff] Stat Lab 09/04/24 22:25 Completed CMP [Comprehensive Metabolic Panel] Stat Lab 09/04/24 22:25 Completed CRP [C-Reactive Protein] Stat Lab 09/04/24 22:25 Completed Full Resp Panel w/COVID ([facility]) Routine Lab 09/04/24 22:25 Completed Magnesium Stat Lab 09/04/24 22:25 Completed Procalcitonin Stat Lab 09/04/24 22:25 Completed Trop I [Troponin I] Stat Lab 09/04/24 22:25 Completed Troponin I Q3H Lab 09/05/24 01:30 Ordered Troponin I Q3H Lab 10/30/24 04:30 Ordered VBG [Venous Blood Gas] Stat RT 09/04/24 22:25 Completed ECG Data Tracing #1: Attestation: I reviewed this ECG and interpreted as documented below: ECG Narrative: Normal sinus rhythm with a ventricular to [address] changes concerning for a STEMI, however she does have some subtle ST changes in lead III potentially. No acute STEMI. Motion artifact degrades study. She does have frequent PVCs. ECG initial impression date: 09/04/24 ECG initial impression time: 22:21 Tracing #2: Attestation: I reviewed this ECG and interpreted as documented below: ECG Narrative: Normal sinus rhythm with a ventricular to 93 bpm. Frequent PVCs. No acute ST changes concerning for ischemia. ECG initial impression date: 09/04/24 ECG initial impression time: 22:27 MDM Narrative Medical Decision Narrative: In summary patient is a 49-year-old female who presents to the emergency department for evaluation of dyspnea. Patient is hemodynamically stable upon arrival, afebrile. Physical exam is remarkable for very diaphoretic 49-year-old female who is morbidly obese. She has increased work of breathing with accessory muscle use. Auscultation the breath sounds reveals diminished breath sounds at the bases with inspiratory and expiratory wheezing in all 4 judd. Heart sounds are normal patient appears to be normal sinus rhythm with frequent PVCs on the bedside monitor satting at 95% on room air. Differential diagnosis includes the OPD exacerbation with asthma, viral bacterial respiratory tract infection, ACS etc. Initial workup will be conducted with hematologic labs VBG twelve-lead EKG plain film chest x-ray. Initial interventions include DuoNeb. Initial workup ordered and is pending at the time of handoff to Dr. Mcmillan at 2300 hrs. Suzan Tucker DO: I was consulted by the MARLA, and we discussed the complexity of the problems being addressed. I approved the treatment and management plan for this patient's care in the emergency department, thus performing a substantive portion of the medical decision making. Patient is PERC negative for pulmonary embolus. EKG with frequent PVCs but not ischemic. History and presentation most likely consistent with asthma exacerbation, but will undergo cardiac workup. Patient has leukocytosis but is afebrile with no significant tachycardia, hypotension. CRP and procalcitonin pending. I considered diagnosis of sepsis however I feel that is unlikely at this time, so sepsis bolus not given and cultures not sent currently. She has no significant lactic acidosis. if CRP and procalcitonin are significant elevated, may reconsider. I independently interpreted chest x-ray prior to radiology read and noted no obvious large acute focal consolidation. Please see radiology read for final interpretation. To further treat significant asthma exacerbation, I did order dexamethasone and magnesium to go with the patient's DuoNebs. Patient care signed out the oncoming provider, Dr. Mcmillan at 2300. <Dave Mcmillan MD - Last Filed: 09/05/24 01:24> Vital Signs Vital Signs: 09/04/24 22:13 09/04/24 22:31 09/04/24 23:05 Temperature 98.5 F Temperature Source Oral Pulse Rate 50 L 89 Pulse Rate [Right Radial] 99 H Respiratory Rate 22 18 25 H Blood Pressure 105/68 L 115/77 Blood Pressure [Right Arm] 109/61 L Blood Pressure Mean [Right Arm] 77 02 Sat by Pulse Oximetry 95 95 96 Oxygen Delivery Method Room Air 09/04/24 23:30 09/05/24 00:00 Temperature Temperature Source Pulse Rate 83 95 H Pulse Rate [Right Radial] Respiratory Rate 12 17 Blood Pressure 107/63 L 106/63 L Blood Pressure [Right Arm] Blood Pressure Mean [Right Arm] 02 Sat by Pulse Oximetry 91 L 92 L Oxygen Delivery Method Lab Data Labs: Lab Results 09/04/24 22:25: WBC 14.9 H, RBC 5.07, Hgb 14.3, Hct 43.7, MCV 86.1, MCH 28.3, MCHC 32.8, RDW 15.5, Plt Count 354, MPV 7.3 L, Neut % (Auto) 64.6, Lymph % (Auto) 28.2, Rosebud % (Auto) 4.5, Eos % (Auto) 1.9, Baso % (Auto) 0.8, Neut # (Auto) 9.6 H, Lymph # (Auto) 4.2, Rosebud # (Auto) 0.7, Eos # (Auto) 0.3, Baso # (Auto) 0.1, VBG pH 7.38, VBG pCO2 41.7, VBG pO2 67.6 H, VBG HCO3 24.3, VBG Total CO2 25.6, VBG O2 Saturation 92.4 H, VBG Base Excess -0.8, VBG Lactic Acid 1.9, Sodium 139, Potassium 4.1, Chloride 104, Carbon Dioxide 29, Anion Gap 10.1, BUN 14, Creatinine 0.70, Estimated Creat Clear 106, Estimated GFR 89, Est GFR ( Amer) 108, Glucose 122 H, Calcium 9.3, Magnesium 1.6, Total Bilirubin 0.4, AST 28, ALT 25, Alkaline Phosphatase 117, Troponin I < 0.01, C-Reactive Protein 20.2 H, Total Protein 7.0, Albumin 4.0, Globulin 3.0, Albumin/Globulin Ratio 1.3, Procalcitonin 0.060, Chlamy pneumoniae PCR Not detected, Adenovirus (PCR) Not detected, B. pertussis DNA (PCR) Not detected, Coronavirus OC43 (PCR) Not detected, Coronavirus HKU1 (PCR) Not detected, Coronavirus 229E (PCR) Not detected, SARS-CoV-2 (PCR) Not detected, Coronavirus NL63 (PCR) Not detected, Human Metapneumovir PCR Not detected, Influenza A (H1) PCR Not detected, Influ A (H1N1/09) PCR Not detected, Influenza A (H3) PCR Not detected, Influenza Type A (PCR) Not detected, Influenza Type B (PCR) Not detected, M. pneumoniae (PCR) Not detected, Parainfluenza 1 (PCR) Not detected, Parainfluenza 2 (PCR) Not detected, Parainfluenza 3 (PCR) Not detected, Parainfluenza 4 (PCR) Not detected, RSV (PCR) Not detected, Entero/Rhino (PCR) Detected A Response Orders (Tests/Meds): ED MEDICATIONS Discontinued Medications Generic Name Dose Route Start Last Admin Trade Name Freq PRN Reason Stop Dose Admin Albuterol/Ipratropium 9 ml 09/04/24 22:24 09/04/24 22:41 Ipratropium/Albuterol 3 Ml Neb IH 09/04/24 22:25 9 ml ONCE ONE Administration Belladonna Alkaloids 60 ml 09/05/24 00:09 09/05/24 00:17 Belladonna Alkaloids 60 Ml Ml PO 09/05/24 00:10 60 ml ONCE ONE Administration Dexamethasone Sodium Phosphate 10 mg 09/04/24 22:43 09/04/24 22:55 Dexamethasone 4mg/Ml 1ml Vial IV 09/04/24 22:44 10 mg ONCE ONE Administration Diphenhydramine HCl 50 mg 09/04/24 23:20 09/04/24 23:28 Diphenhydramine 50mg/Ml Vial IV 09/04/24 23:21 50 mg ONCE ONE Administration Duloxetine HCl 60 mg 09/04/24 22:26 09/04/24 22:52 Duloxetine 30mg Capsule.Dr PO 09/04/24 22:27 Not Given ONCE ONE Magnesium Sulfate 2 gm in 50 mls @ 50 mls/hr 09/04/24 22:43 09/04/24 22:55 Magnesium Sulfate 2gm/50ml Premix IV 09/04/24 23:42 50 mls/hr ONCE ONE Administration ORDERS Category Date Time Status XR chest portable Stat Exams 09/04/24 22:24 Completed CBC w/Auto Diff [Complete Blood Count Auto Diff] Stat Lab 09/04/24 22:25 Completed CMP [Comprehensive Metabolic Panel] Stat Lab 09/04/24 22:25 Completed CRP [C-Reactive Protein] Stat Lab 09/04/24 22:25 Completed Full Resp Panel w/COVID ([facility]) Routine Lab 09/04/24 22:25 Completed Magnesium Stat Lab 09/04/24 22:25 Completed Procalcitonin Stat Lab 09/04/24 22:25 Completed Trop I [Troponin I] Stat Lab 09/04/24 22:25 Completed Troponin I Q3H Lab 09/05/24 01:30 Ordered Troponin I Q3H Lab 09/05/24 04:30 Ordered VBG [Venous Blood Gas] Stat RT 09/04/24 22:25 Completed MDM Narrative Medical Decision Narrative: In summary patient is a 49-year-old female who presents to the emergency department for evaluation of dyspnea. Patient is hemodynamically stable upon arrival, afebrile. Physical exam is remarkable for very diaphoretic 49-year-old female who is morbidly obese. She has increased work of breathing with accessory muscle use. Auscultation the breath sounds reveals diminished breath sounds at the bases with inspiratory and expiratory wheezing in all 4 judd. Heart sounds are normal patient appears to be normal sinus rhythm with frequent PVCs on the bedside monitor satting at 95% on room air. Differential diagnosis includes the OPD exacerbation with asthma, viral bacterial respiratory tract infection, ACS etc. Initial workup will be conducted with hematologic labs VBG twelve-lead EKG plain film chest x-ray. Initial interventions include DuoNeb. Initial workup ordered and is pending at the time of handoff to Dr. Mcmillan at 2300 hrs. Suzan Tucker DO: I was consulted by the MARLA, and we discussed the complexity of the problems being addressed. I approved the treatment and management plan for this patient's care in the emergency department, thus performing a substantive portion of the medical decision making. Patient is PERC negative for pulmonary embolus. EKG with frequent PVCs but not ischemic. History and presentation most likely consistent with asthma exacerbation, but will undergo cardiac workup. Patient has leukocytosis but is afebrile with no significant tachycardia, hypotension. CRP and procalcitonin pending. I considered diagnosis of sepsis however I feel that is unlikely at this time, so sepsis bolus not given and cultures not sent currently. She has no significant lactic acidosis. if CRP and procalcitonin are significant elevated, may reconsider. I independently interpreted chest x-ray prior to radiology read and noted no obvious large acute focal consolidation. Please see radiology read for final interpretation. To further treat significant asthma exacerbation, I did order dexamethasone and magnesium to go with the patient's DuoNebs. Patient care signed out the oncoming provider, Dr. Mcmillan at 2300. Hipolito LEWIS: I assumed care of the patient at the time of handoff from the prior provider. On reassessment patient reports that she continues to feel short of breath. She continues to have diffuse wheezing on exam but is now moving good air. On youth nutritional monitor she was consistently in the high 80s while awake and is now requiring 2 L nasal cannula. On youth nutritional monitor she had a period of about 1 minute of tacky dysrhythmia with heart rate jumping from the 90s to the 130s. We were unable to capture on EKG. She is having frequent PVCs on EKG however. Given continued hypoxia and wheezing as well as tachycardia dysrhythmias, patient benefit from admission for further observation management. Interactive discussion was had with the hospitalist on-call for admission.
--- NOTE | 2024-09-04 22:19 | ECG_ITS ---
APPROVED REPORT Exam: Resting ECG HR:95 bpm ECG Measurements Heart Rate 95 AXES RI 171 P 48 QRSd 77 QRS 79 QT 336 T 57 QTc 389 Conclusion SINUS RHYTHM WITH FREQUENT VENTRICULAR PREMATURE COMPLEXES LOW QRS VOLTAGE IN PRECORDIAL LEADS [QRS DEFLECTION < 1.0 mV IN CHEST LEADS] POSSIBLE ANTERIOR MYOCARDIAL INFARCTION , OF INDETERMINATE AGE [30 ms Q WAVE IN V3/V4, OR R < 0.2 mV IN V4] UNCONFIRMED REPORT Electronically signed by : DANO MORGAN, 09/06/2024 06:48:41
--- NOTE | 2024-09-04 22:24 | XR_ITS ---
PROCEDURE INFORMATION: Exam: XR Chest Exam date and time: 09/04/2024 10:26 PM Age: 49 years old Clinical indication: Shortness of breath TECHNIQUE: Imaging protocol: Radiologic exam of the chest. Views: 1 view. COMPARISON: CR XR CHEST PORTABLE 01/26/2023 11:29 AM FINDINGS: Lungs: Low lung volumes without definite focal airspace consolidation. Pleural spaces: No pneumothorax. Heart/Mediastinum: Unremarkable cardiomediastinal silhouette. Bones/joints: No acute osseous findings. IMPRESSION: Low lung volumes without definite focal airspace consolidation.
--- NOTE | 2024-09-04 22:25 | ECG_ITS ---
APPROVED REPORT Exam: Resting ECG HR:93 bpm ECG Measurements Heart Rate 93 AXES OR 171 P 60 QRSd 79 QRS 79 QT 360 T 45 QTc 410 Conclusion SINUS RHYTHM WITH FREQUENT VENTRICULAR PREMATURE COMPLEXES LOW QRS VOLTAGE IN PRECORDIAL LEADS [QRS DEFLECTION < 1.0 mV IN CHEST LEADS] POSSIBLE ANTERIOR MYOCARDIAL INFARCTION , OF INDETERMINATE AGE [30 ms Q WAVE IN V3/V4, OR R < 0.2 mV IN V4] ABNORMAL ECG UNCONFIRMED REPORT Electronically signed by : DANO MORGAN, 09/06/2024 06:48:58
[2024-09-04 22:28] LABS: Adenovirus,PCR Not Detected (NotDetected); Bordetella Pertussis Not Detected (NotDetected); Chlamydophila Pneumoniae, PCR Not Detected (NotDetected); Coronavirus 19, PCR Not Detected (NotDetected); Coronavirus 229E Not Detected (NotDetected); Coronavirus NL63 Not Detected (NotDetected); Coronavirus OC43 Not Detected (NotDetected); Coronovirus HKU1,PCR Not Detected (NotDetected); Human Metapneumovirus Not Detected (NotDetected); Influenza A, PCR Not Detected (NotDetected); Influenza AH1, 2009 Not Detected (NotDetected); Influenza AH1, PCR Not Detected (NotDetected); Influenza AH3,PCR Not Detected (NotDetected); Influenza B, PCR Not Detected (NotDetected); Mycoplasma Pneumoniae, PCR Not Detected (NotDetected); Parainfluenza 1, PCR Not Detected (NotDetected); Parainfluenza 2, PCR Not Detected (NotDetected); Parainfluenza 3, PCR Not Detected (NotDetected); Parainfluenza 4, PCR Not Detected (NotDetected); Respiratory Syncytial Virus Not Detected (NotDetected)
[2024-09-04 22:31] VITALS: BP 105/68; PULSE 50; RESP 18; O2SAT 95
[2024-09-04 22:31] LABS: Basophils # 0.1 K/mm3 (0-0.2); Basophils % 0.8 % (0.1-2.0); Eosinophils # 0.3 K/mm3 (0.0-0.4); Eosinophils % 1.9 % (0.1-12.0); Hematocrit 43.7 % (37.0-47.0); Hemoglobin 14.3 g/dL (12.2-16.2); Lactate Venous 1.9 mmol/L (0.4-2.0); Lymphocytes # 4.2 K/mm3 (0.7-4.5); Lymphocytes % 28.2 % (10-50); Mean Corpuscular HGB Conc 32.8 g/dL (31.8-35.4); Mean Corpuscular Hemoglobin 28.3 pg (27.0-31.2); Mean Corpuscular Volume 86.1 fl (81-99); Mean Platelet Volume 7.3 fl (7.4-10.4); Monocytes # 0.7 K/mm3 (0.1-1.0); Monocytes % 4.5 % (1.7-9.3); Neutrophils # 9.6 K/mm3 (1.8-7.8); Neutrophils % 64.6 % (37.0-80.0); Platelet Count 354 K/mm3 (142-424); Red Blood Count 5.07 M/mm3 (4.20-5.40); Red Cell Distribution Width 15.5 % (11.5-17.5); VBG Base Excess -0.8 mmol/L (-2.4-2.3); VBG HCO3 24.3 mmol/L (23-30); VBG Oxygen Saturation 92.4 % (50-70); VBG PCO2 41.7 mmol/L (35-51); VBG PH 7.38 mmol/L (7.31-7.41); VBG PO2 67.6 mmol/L (28-40); VBG Total CO2 25.6 mmol/L (23-27); White Blood Count 14.9 K/mm3 (4.8-10.8)
[2024-09-04 22:35] LABS: Chloride 104 mmol/L (98-107); Potassium 4.1 mmoL/L (3.5-5.1); Sodium 139 mmol/L (136-145)
[2024-09-04 22:38] LABS: Alanine Aminotransferase 25 U/L (12-78); Albumin/Globulin Ratio 1.3 (1.1-1.8); Alkaline Phosphatase 117 U/L (38-126); Anion Gap 10.1 mEq/L (5-15); Aspartate Amino Transferase 28 U/L (14-36); Bilirubin,Total 0.4 mg/dl (0.2-1.3); Blood Urea Nitrogen 14 mg/dl (7-17); Carbon Dioxide 29 mmol/L (22.0-30.0); Creatinine Clearance Estimated 106 mL/min (50-200); Estimated Glomerular Filt Rate 89 ml/min (>60); GFR (African American) 108 ML/MIN (>60)
[2024-09-04 22:39] LABS: Calcium 9.3 mg/dl (8.4-10.2); Glucose 122 mg/dl (74-100)
[2024-09-04] MEDS: IPRATROPIUM/ALBUTEROL 3 ML NEB 9 ML IH (22:41)
[2024-09-04 22:55] LABS: Troponin I < 0.01 ng/ml (0.00-0.034)
[2024-09-04] MEDS: MAGNESIUM SULFATE IN WATER 2 GM/50 ML PIGGYBACK IV (22:55)
[2024-09-04] MEDS: DEXAMETHASONE 4MG/ML 1ML VIAL 10 MG IV (22:55)
[2024-09-04 22:58] LABS: Magnesium 1.6 mg/dl (1.6-2.3)
[2024-09-04 23:03] LABS: C-Reactive Protein 20.2 mg/L (0-4)
[2024-09-04 23:05] VITALS: BP 115/77; PULSE 89; RESP 25; O2SAT 96
[2024-09-04] MEDS: diphenhydrAMINE 50MG/ML VIAL 50 MG IV (23:28)
[2024-09-04 23:30] VITALS: BP 107/63; PULSE 83; RESP 12; O2SAT 91
[2024-09-05] VITALS (9 sets, daily range): BP systolic 105–166; BP diastolic 61–80; PULSE 70–98; RESP 17–20; TEMP 36.3–36.9; O2SAT 91–96; BMI 49.1
[2024-09-05] MEDS: BELLADONNA ALKALOIDS 60 ML ML PO (00:17)
[2024-09-05 00:40] LABS: Rhinovirus/Enterovirus Detected (NotDetected)
--- NOTE | 2024-09-05 00:55 | ECG_ITS ---
APPROVED REPORT Exam: Resting ECG HR:89 bpm ECG Measurements Heart Rate 89 AXES DE 160 P 46 QRSd 91 QRS 61 QT 377 T 50 QTc 424 Conclusion SINUS RHYTHM LOW QRS VOLTAGE IN PRECORDIAL LEADS [QRS DEFLECTION < 1.0 mV IN CHEST LEADS] POSSIBLE ANTERIOR MYOCARDIAL INFARCTION , OF INDETERMINATE AGE [30 ms Q WAVE IN V3/V4, OR R < 0.2 mV IN V4] ABNORMAL ECG UNCONFIRMED REPORT Electronically signed by : DAON MORGAN, 09/06/2024 06:48:01
--- NOTE | 2024-09-05 01:57 | PC.NURSE ---
Patient arrived to floor via wheelchair from ED at 01:55.
[2024-09-05 02:17] LABS: Troponin I < 0.01 ng/ml (0.00-0.034)
--- NOTE | 2024-09-05 02:18 | P.HP_ITS ---
<Statement entered by Franki Nevarez MD - 09/05/24 22:40> Personal evaluated the patient and agree with the plan of care outlined by our AUTOMOT[employer]ODUCTION WORKER. History of Present Illness *Admission Date: 09/05/24 *Reason for visit:: Shortness of breath *History of present illness: This is a 49-year-old female with a past medical history of asthma, T2DM, JOSEP, HTN, HLD, obesity tobacco use disorder who presents emergency department today with complaints of shortness of breath. She reports 1 week of shortness of breath that has been worsening. States that she is looking to take care of her asthma at home. Has not used her nebulizer in approximately 8 months but has noted worsening shortness of breath to the point where she has had to use it this week. States that she sat in the emergency department waiting room at for several hours with her mother and felt like she may have picked up a virus there. She does endorse productive sputum and wheezing. Emergency department workup notable for asthma exacerbation. Patient diffuse wheezing on exam with oxygen saturations in the mid 80s on room air. Patient does not wear oxygen at home at baseline. She required multiple DuoNebs in the emergency department as well as magnesium and steroids. She attempted to am bulate ox oxygen but had drop in oxygen saturations into the 80s. Laboratory evaluation notable for entero/rhinovirus positive. All other workup negative. Given her new oxygen requirement and persistent wheezing she is admitted for asthma exacerbation. [facility] Disclaimer: The information contained in this section may have been updated after the patient was seen, as this information can be updated by other users. Medical History Diabetes mellitus Hyperlipidemia Allergic rhinitis Family history of emphysema Asthma Family history of asthma Tobacco abuse counseling Tobacco abuse disorder Dyspnea on exertion Smoking greater than 30 pack years Seasonal allergic rhinitis Moderate persistent asthma Morbid obesity HTN (hypertension), benign Hidradenitis suppurativa Surgical History History of carpal tunnel surgery Hx of cholecystectomy History of tonsillectomy History of hysterectomy Family History Other Cancer Coronary artery disease FHx: mental illness Heart attack Hyperlipidemia Hypertension No significant family history Stroke Social History Smoking Status: Current every day smoker tobacco type: cigarettes packs per day: 1 second hand exposure: Yes alcohol intake: never substance use type: marijuana current occupational status: unemployed Travel in the last 8 weeks: None housing: house Other Medical History Have you received the Pneumonia Vaccine: No Review of Systems Review of Systems Review of systems:: other Review of systems (narrative): Negative except for HPI Meds Home Medications and Allergies Home Medications ?Medication ?Instructions ?Recorded ?Confirmed ?Type blood sugar diagnostic (Blood #50 ea 04/28/22 01/09/24 Rx Glucose Test strips) blood-glucose meter (Blood Glucose #1 ea 04/28/22 01/09/24 Rx Monitoring kit) lancets 28 gauge (Acti-Arun #100 ea 04/28/22 01/09/24 Rx Lancets) albuterol sulfate 90 mcg/actuation 2 inh inhalation Q6H PRN shortness 06/15/22 02/14/24 Rx aerosol inhaler of breath or wheezing 90 days #8.5 grams metformin 500 mg tablet See Rx Instructions .Route 12/17/22 02/14/24 Rx .COMPLEX #180 tabs buspirone 10 mg tablet 10 mg PO TID 02/08/23 02/14/24 History folic acid 1 mg tablet 1 mg PO DAILY 07/07/23 02/14/24 History rosuvastatin 10 mg tablet 10 mg PO DAILY 07/07/23 02/14/24 History cholecalciferol (vitamin D3) 125 125 mcg PO DAILY 08/09/23 02/14/24 History mcg (5,000 unit) tablet naproxen 500 mg tablet 500 mg PO BID 08/09/23 02/14/24 History chlorhexidine gluconate 4 % 1 applic topical ONCE PRN 10/11/23 02/14/24 History topical liquid (Hibiclens) triamcinolone acetonide 0.5 % applic topical 10/11/23 02/14/24 History topical cream ipratropium 0.5 mg-albuterol 3 mg 3 ml inhalation Q6H PRN shortness 11/28/23 02/14/24 Rx (2.5 mg base)/3 mL nebulization of breath or wheezing #180 mL soln docusate sodium 100 mg capsule 200 mg PO DAILY 12/13/23 02/14/24 History azelastine 137 mcg (0.1 %) nasal 2 spray intranasal HS 90 days #30 01/09/24 02/14/24 Rx spray mL fluticasone propionate 50 2 spray intranasal DAILY 90 days 01/09/24 02/14/24 Rx mcg/actuation nasal #16 grams spray,suspension (Flonase Allergy Relief) semaglutide 0.25 mg or 0.5 mg (2 1 mg SQ WEEKLY 01/09/24 02/14/24 History mg/3 mL) subcutaneous pen injector duloxetine 60 mg capsule,delayed 60 mg PO DAILY 02/08/24 02/14/24 History release mirabegron 25 mg tablet,extended 25 mg PO DAILY 02/08/24 02/14/24 History release 24 hr (Myrbetriq) budesonide-formoterol HFA 160 2 puff inhalation BID 90 days 06/26/24 Rx mcg-4.5 mcg/actuation aerosol #10.2 grams inhaler (Symbicort) valsartan 320 See Rx Instructions .Route 07/17/24 Rx mg-hydrochlorothiazide 12.5 mg .COMPLEX #90 tabs tablet montelukast 10 mg tablet See Rx Instructions .Route 09/03/24 Rx .COMPLEX #90 tabs New Prescriptions to Start Prescriptions: Allergies Allergy/AdvReac Type Severity Reaction Status Date / Time bupropion [From Wellbutrin] Allergy Severe Anaphylaxis Verified 05/28/24 07:34 aspirin [ASPIRIN] Allergy Mild Unknown Verified 09/05/24 01:38 allergy reaction doxycycline [DOXYCYCLINE] Allergy Mild Unknown Verified 09/05/24 01:38 allergy reaction diazepam [From Valium] Allergy Unknown Verified 09/05/24 01:38 allergy reaction alprazolam [From Xanax] AdvReac Severe Agitated Verified 05/28/24 07:34 PCN Allergy Mild Unknown Uncoded 09/05/24 01:38 allergy reaction Exam Data for Last 24 hours Vital signs and Labs for Last 24 Hours: Temp Pulse Resp BP Pulse Ox O2 Del Method O2 Flow Rate 98.5 F 98 H 20 166/77 H 92 L Nasal Cannula 2 09/05/24 01:48 09/05/24 01:48 09/05/24 01:48 09/05/24 01:48 09/05/24 00:00 09/05/24 01:48 09/05/24 01:48 Laboratory Results - last 24 hr 09/04/24 22:25: WBC 14.9 H, RBC 5.07, Hgb 14.3, Hct 43.7, MCV 86.1, MCH 28.3, MCHC 32.8, RDW 15.5, Plt Count 354, MPV 7.3 L, Neut % (Auto) 64.6, Lymph % (Auto) 28.2, [place] % (Auto) 4.5, Eos % (Auto) 1.9, Baso % (Auto) 0.8, Neut # (Auto) 9.6 H, Lymph # (Auto) 4.2, [place] # (Auto) 0.7, Eos # (Auto) 0.3, Baso # (Auto) 0.1, VBG pH 7.38, VBG pCO2 41.7, VBG pO2 67.6 H, VBG HCO3 24.3, VBG Total CO2 25.6, VBG O2 Saturation 92.4 H, VBG Base Excess -0.8, VBG Lactic Acid 1.9, Sodium 139, Potassium 4.1, Chloride 104, Carbon Dioxide 29, Anion Gap 10.1, BUN 14, Creatinine 0.70, Estimated Creat Clear 106, Estimated GFR 89, Est GFR ( Amer) 108, Glucose 122 H, Calcium 9.3, Magnesium 1.6, Total Bilirubin 0.4, AST 28, ALT 25, Alkaline Phosphatase 117, Troponin I < 0.01, C-Reactive Protein 20.2 H, Total Protein 7.0, Albumin 4.0, Globulin 3.0, Albumin/Globulin Ratio 1.3, Procalcitonin 0.060, Chlamy pneumoniae PCR Not detected, Adenovirus (PCR) Not detected, B. pertussis DNA (PCR) Not detected, Coronavirus OC43 (PCR) Not detected, Coronavirus HKU1 (PCR) Not detected, Coronavirus 229E (PCR) Not detected, SARS-CoV-2 (PCR) Not detected, Coronavirus NL63 (PCR) Not detected, Human Metapneumovir PCR Not detected, Influenza A (H1) PCR Not detected, Influ A (H1N1/09) PCR Not detected, Influenza A (H3) PCR Not detected, Influenza Type A (PCR) Not detected, Influenza Type B (PCR) Not detected, M. pneumoniae (PCR) Not detected, Parainfluenza 1 (PCR) Not detected, Parainfluenza 2 (PCR) Not detected, Parainfluenza 3 (PCR) Not detected, Parainfluenza 4 (PCR) Not detected, RSV (PCR) Not detected, Entero/Rhino (PCR) Detected A 09/05/24 01:28: Troponin I < 0.01 I & O for Last 24 hours: Intake & Output 09/02/24 09/03/24 09/04/24 09/05/24 23:59 23:59 23:59 23:59 Weight 158.757 kg Constitutional Constitutional: no acute distress *Routine HEENT Exam Head: Present normocephalic Eye: Present EOMI and PERRL ENT: Present mucous membranes moist *Routine Neck Exam Neck: Present supple; Absent lymphadenopathy *Routine Respiratory Exam Respiratory: Present wheezes, normal respiratory effort and able to speak in complete sentences *Routine Cardiovascular Exam Cardiovascular: Present RRR *Routine Abdominal Exam Abdominal: Present soft and normoactive bowel sounds; Absent tenderness *Routine Rectal Exam Rectal:: deferred *Routine Genitalia Exam Genitalia:: deferred *Routine Extremities Exam Extremities: Absent cyanosis, clubbing or edema *Routine Skin Exam Skin: Present warm; Absent rash *Routine Neurological Exam Neurological: Present alert and oriented X3 Assessment and Plan *Assessment and plan (1) Respiratory failure with hypoxia: Status: Acute Qualifiers: Chronicity: acute Qualified Code(s): J96.01 - Acute respiratory failure with hypoxia Category: Medical Code(s): J96.91 - Respiratory failure, unspecified with hypoxia (2) Asthma exacerbation: Status: Acute Qualifiers: Asthma severity: moderate Asthma persistence: persistent Qualified Code(s): J45.41 - Moderate persistent asthma with (acute) exacerbation Category: Medical Code(s): J45.901 - Unspecified asthma with (acute) exacerbation (3) BMI 45.0-49.9, adult: Status: Chronic Category: Medical Code(s): Z68.42 - Body mass index [BMI] 45.0-49.9, adult (4) Diabetes mellitus: Status: Acute Qualifiers: Diabetes mellitus type: type 2 Diabetes mellitus assisted insulin use: without assisted use Diabetes mellitus complication status: without complication Qualified Code(s): E11.9 - Type 2 diabetes mellitus without complications Category: Medical Code(s): E11.9 - Type 2 diabetes mellitus without complications (5) Hyperlipidemia: Status: Acute Qualifiers: Hyperlipidemia type: mixed hyperlipidemia Qualified Code(s): E78.2 - Mixed hyperlipidemia Category: Medical Code(s): E78.5 - Hyperlipidemia, unspecified (6) HTN (hypertension), benign: Status: Chronic Category: Medical Code(s): I10 - Essential (primary) hypertension Plan #Respiratory failure with hypoxia #Asthma exacerbation Will continue bronchodilators namely budesonide and DuoNe Continue corticosteroids Will initiate azithromycin for antibiotic coverage Wean oxygen as tolerated See's Anangi in oupatient setting, will need close follow up # T2DM A1c pending, continue sliding scale #Mood disorder Continue mood stabilization medication #Hyperlipidemia Continue home medications #Morbid obesity Complicates all aspects of care
[2024-09-05] MEDS: BUSPIRONE HCL 10 MG TABLET PO ×2 (03:25→09:20)
[2024-09-05 04:38] LABS: Basophils % 0.3 % (0.1-2.0); Eosinophils % 0.1 % (0.1-12.0); Hematocrit 41.9 % (37.0-47.0); Hemoglobin 13.9 g/dL (12.2-16.2); Lymphocytes # 1.4 K/mm3 (0.7-4.5); Lymphocytes % 10.8 % (10-50); Mean Corpuscular HGB Conc 33.1 g/dL (31.8-35.4); Mean Corpuscular Hemoglobin 28.6 pg (27.0-31.2); Mean Corpuscular Volume 86.3 fl (81-99); Mean Platelet Volume 7.3 fl (7.4-10.4); Monocytes # 0.3 K/mm3 (0.1-1.0); Monocytes % 2.1 % (1.7-9.3); Neutrophils # 11.3 K/mm3 (1.8-7.8); Neutrophils % 86.7 % (37.0-80.0); Platelet Count 299 K/mm3 (142-424); Red Blood Count 4.86 M/mm3 (4.20-5.40); Red Cell Distribution Width 15.5 % (11.5-17.5)
[2024-09-05 04:40] LABS: MANUAL DIFFERENTIAL MANUAL DIFFERENTIAL (MANUAL DIFF)
[2024-09-05 04:43] LABS: Chloride 102 mmol/L (98-107); Sodium 137 mmol/L (136-145)
[2024-09-05 04:46] LABS: Blood Urea Nitrogen 13 mg/dl (7-17); Carbon Dioxide 27 mmol/L (22.0-30.0); Creatinine Clearance Estimated 106 mL/min (50-200); Estimated Glomerular Filt Rate 89 ml/min (>60); GFR (African American) 108 ML/MIN (>60)
[2024-09-05 04:47] LABS: Calcium 9.1 mg/dl (8.4-10.2); Glucose 185 mg/dl (74-100)
[2024-09-05 05:01] LABS: Troponin I < 0.01 ng/ml (0.00-0.034)
[2024-09-05 05:21] LABS: Lymphocytes % 8 % (10-50); Neutrophils % 92 % (42-76); Total Cells Counted 100
[2024-09-05 05:22] LABS: Platelet Estimate Normal; Stomatocytes 1+
[2024-09-05 06:22] LABS: POC Glucose,Bedside 142 (70-110)
[2024-09-05] MEDS: IPRATROPIUM/ALBUTEROL 3 ML NEB IH ×2 (06:24→11:45)
[2024-09-05] MEDS: BUDESONIDE 0.25MG/2ML NEB 0.25 MG IH (06:26)
[2024-09-05] MEDS: IRBESARTAN 300MG TABLET 300 MG PO (09:01)
[2024-09-05] MEDS: ENOXAPARIN 40MG/0.4ML SYRINGE 40 MG SUBCUT (09:01)
[2024-09-05] MEDS: hydroCHLOROthiazide 12.5MG CAPSULE 12.5 MG PO (09:10)
[2024-09-05] MEDS: DULOXETINE 30MG CAPSULE.DR 60 MG PO (09:19)
[2024-09-05] MEDS: predniSONE 20MG TAB 40 MG PO (09:23)
[2024-09-05] MEDS: FLUTICASONE PROP 50MCG NASAL SPRAY 16GM 2 SPRAY NS (09:37)
[2024-09-05] MEDS: METFORMIN 500MG TABLET 500 MG PO (09:37)
--- NOTE | 2024-09-05 10:56 | PC.NURSE ---
1025: Oxygen satuaration 90-93 on room air sitting on side of the bed. Pt. up to ambulate in the mooney oxygen saturations 89-91% on room air. Tolerated walking well.
[2024-09-05 12:04] LABS: POC Glucose,Bedside 164 (70-110)
--- NOTE | 2024-09-05 12:13 | P.DS_ITS ---
General Admission date:: 09/05/24 HPI HPI HPI: This is a 49-year-old female with a past medical history of asthma, T2DM, JOSEP, HTN, HLD, obesity tobacco use disorder who presents emergency department today with complaints of shortness of breath. She reports 1 week of shortness of breath that has been worsening. States that she is looking to take care of her asthma at home. Has not used her nebulizer in approximately 8 months but has noted worsening shortness of breath to the point where she has had to use it this week. States that she sat in the emergency department waiting room at for several hours with her mother and felt like she may have picked up a virus there. She does endorse productive sputum and wheezing. Emergency department workup notable for asthma exacerbation. Patient diffuse wheezing on exam with oxygen saturations in the mid 80s on room air. Patient does not wear oxygen at home at baseline. She required multiple DuoNebs in the emergency department as well as magnesium and steroids. She attempted to ambulate ox oxygen but had drop in oxygen saturations into the 80s. Laboratory evaluation notable for entero/rhinovirus positive. All other workup negative. Given her new oxygen requirement and persistent wheezing she is admitted for asthma exacerbation. Hospital Course Hospital Course Hospital Course: #Respiratory failure with hypoxia #Asthma exacerbation ? Asthma exacerbation improved with DuoNebs, Pulmicort breathing treatments and steroids. ? Initially requiring 2 L nasal cannula, weaned to room air. ? Had appropriate saturations on walk test with at least 91%. ? Positive for rhinovirus on respiratory panel. ? CXR unremarkable for acute findings. ? Medically stable to be discharged home. ? Discharged with prednisone 40 mg for 3 more days, azithromycin 250 mg for 5 days. # T2DM Continue home metformin. #Anxiety/depression Continue home Cymbalta, BuSpar. ? Patient is very anxious at baseline, became very agitated during admission. ? Slightly improved after restarting home Cymbalta, BuSpar. ? Will follow-up with PCP to discuss other options for anxiety/depression. #Hyperlipidemia Continue home atorvastatin #Morbid obesity BMI 49.2. Complicates all aspects of care ? Has previously tried Ozempic but had severe constipation and was discontinued. ? Advised to talk to PCP about other options. Exam Data for Last 24 hours Vital signs and Labs for Last 24 Hours: Temp Pulse Resp BP Pulse Ox O2 Del Method O2 Flow Rate 97.8 F 95 H 18 129/80 91 L Room Air 3 09/05/24 11:43 09/05/24 11:47 09/05/24 11:43 09/05/24 11:43 09/05/24 11:47 09/05/24 11:47 09/05/24 08:00 Laboratory Results - last 24 hr 09/04/24 22:25: WBC 14.9 H, RBC 5.07, Hgb 14.3, Hct 43.7, MCV 86.1, MCH 28.3, MCHC 32.8, RDW 15.5, Plt Count 354, MPV 7.3 L, Neut % (Auto) 64.6, Lymph % (Auto) 28.2, Sampson % (Auto) 4.5, Eos % (Auto) 1.9, Baso % (Auto) 0.8, Neut # (Auto) 9.6 H, Lymph # (Auto) 4.2, Sampson # (Auto) 0.7, Eos # (Auto) 0.3, Baso # (Auto) 0.1, VBG pH 7.38, VBG pCO2 41.7, VBG pO2 67.6 H, VBG HCO3 24.3, VBG Total CO2 25.6, VBG O2 Saturation 92.4 H, VBG Base Excess -0.8, VBG Lactic Acid 1.9, Sodium 139, Potassium 4.1, Chloride 104, Carbon Dioxide 29, Anion Gap 10.1, BUN 14, Creatinine 0.70, Estimated Creat Clear 106, Estimated GFR 89, Est GFR ( Amer) 108, Glucose 122 H, Calcium 9.3, Magnesium 1.6, Total Bilirubin 0.4, AST 28, ALT 25, Alkaline Phosphatase 117, Troponin I < 0.01, C-Reactive Protein 20.2 H, Total Protein 7.0, Albumin 4.0, Globulin 3.0, Albumin/Globulin Ratio 1.3, Procalcitonin 0.060, Chlamy pneumoniae PCR Not detected, Adenovirus (PCR) Not detected, B. pertussis DNA (PCR) Not detected, Coronavirus OC43 (PCR) Not detected, Coronavirus HKU1 (PCR) Not detected, Coronavirus 229E (PCR) Not detected, SARS-CoV-2 (PCR) Not detected, Coronavirus NL63 (PCR) Not detected, Human Metapneumovir PCR Not detected, Influenza A (H1) PCR Not detected, Influ A (H1N1/09) PCR Not detected, Influenza A (H3) PCR Not detected, Influenza Type A (PCR) Not detected, Influenza Type B (PCR) Not detected, M. pneumoniae (PCR) Not detected, Parainfluenza 1 (PCR) Not detected, Parainfluenza 2 (PCR) Not detected, Parainfluenza 3 (PCR) Not detected, Parainfluenza 4 (PCR) Not detected, RSV (PCR) Not detected, Entero/Rhino (PCR) Detected A 09/05/24 01:28: Troponin I < 0.01 09/05/24 04:15: WBC 13.0 H, RBC 4.86, Hgb 13.9, Hct 41.9, MCV 86.3, MCH 28.6, MCHC 33.1, RDW 15.5, Plt Count 299, MPV 7.3 L, Neut % (Auto) 86.7 H, Lymph % (Auto) 10.8, Sampson % (Auto) 2.1, Eos % (Auto) 0.1, Baso % (Auto) 0.3, Neut # (Auto) 11.3 H, Lymph # (Auto) 1.4, Sampson # (Auto) 0.3, Eos # (Auto) 0.0, Baso # (Auto) 0.0, Total Counted 100, Neutrophils % (Manual) 92 H, Lymphocytes % (Manual) 8 L, Platelet Estimate Normal, Stomatocytes 1+, Sodium 137, Potassium 4.0, Chloride 102, Carbon Dioxide 27, Anion Gap 12.0, BUN 13, Creatinine 0.70, Estimated Creat Clear 106, Estimated GFR 89, Est GFR ( Amer) 108, Glucose 185 H D, Calcium 9.1, Troponin I < 0.01 09/05/24 05:55: POC Glucose 142 H 09/05/24 11:44: POC Glucose 164 H I & O for Last 24 hours: Intake & Output 09/02/24 09/03/24 09/04/24 09/05/24 23:59 23:59 23:59 23:59 Intake Total 480 / 480 Output Total 0 / 0 Balance 480 / 480 Weight 158.757 kg 155.781 kg Constitutional Constitutional: no acute distress *Routine HEENT Exam Head: Present normocephalic Eye: Present EOMI and PERRL ENT: Present mucous membranes moist *Routine Neck Exam Neck: Present supple; Absent lymphadenopathy *Routine Respiratory Exam Respiratory: Present wheezes; Absent CTA bilaterally *Routine Cardiovascular Exam Cardiovascular: Present RRR *Routine Abdominal Exam Abdominal: Present soft and normoactive bowel sounds; Absent tenderness *Routine Extremities Exam Extremities: Absent cyanosis, clubbing or edema *Routine Skin Exam Skin: Present warm; Absent rash *Routine Neurological Exam Neurological: Present alert and oriented X3 Results Data Completed and Pending Labs on day of discharge: Labs from last 24 hours 09/05/24 09/05/24 09/05/24 11:44 05:55 04:15 WBC 13.0 H RBC 4.86 Hgb 13.9 Hct 41.9 MCV 86.3 MCH 28.6 MCHC 33.1 RDW 15.5 Plt Count 299 MPV 7.3 L Neut % (Auto) 86.7 H Lymph % (Auto) 10.8 Sampson % (Auto) 2.1 Eos % (Auto) 0.1 Baso % (Auto) 0.3 Neut # (Auto) 11.3 H Lymph # (Auto) 1.4 Sampson # (Auto) 0.3 Eos # (Auto) 0.0 Baso # (Auto) 0.0 Total Counted 100 Neutrophils % (Manual) 92 H Lymphocytes % (Manual) 8 L Platelet Estimate Normal Stomatocytes 1+ VBG pH VBG pCO2 VBG pO2 VBG HCO3 VBG Total CO2 VBG O2 Saturation VBG Base Excess VBG Lactic Acid Sodium 137 Potassium 4.0 Chloride 102 Carbon Dioxide 27 Anion Gap 12.0 BUN 13 Creatinine 0.70 Estimated Creat Clear 106 Estimated GFR 89 Est GFR ( Amer) 108 Glucose 185 H D POC Glucose 164 H 142 H Calcium 9.1 Magnesium Total Bilirubin AST ALT Alkaline Phosphatase Troponin I < 0.01 C-Reactive Protein Total Protein Albumin Globulin Albumin/Globulin Ratio Procalcitonin Chlamy pneumoniae PCR Adenovirus (PCR) B. pertussis DNA (PCR) Coronavirus OC43 (PCR) Coronavirus HKU1 (PCR) Coronavirus 229E (PCR) SARS-CoV-2 (PCR) Coronavirus NL63 (PCR) Human Metapneumovir PCR Influenza A (H1) PCR Influ A (H1N1/09) PCR Influenza A (H3) PCR Influenza Type A (PCR) Influenza Type B (PCR) M. pneumoniae (PCR) Parainfluenza 1 (PCR) Parainfluenza 2 (PCR) Parainfluenza 3 (PCR) Parainfluenza 4 (PCR) RSV (PCR) Entero/Rhino (PCR) 09/05/24 09/04/24 01:28 22:25 WBC 14.9 H RBC 5.07 Hgb 14.3 Hct 43.7 MCV 86.1 MCH 28.3 MCHC 32.8 RDW 15.5 Plt Count 354 MPV 7.3 L Neut % (Auto) 64.6 Lymph % (Auto) 28.2 Sampson % (Auto) 4.5 Eos % (Auto) 1.9 Baso % (Auto) 0.8 Neut # (Auto) 9.6 H Lymph # (Auto) 4.2 Sampson # (Auto) 0.7 Eos # (Auto) 0.3 Baso # (Auto) 0.1 Total Counted Neutrophils % (Manual) Lymphocytes % (Manual) Platelet Estimate Stomatocytes VBG pH 7.38 VBG pCO2 41.7 VBG pO2 67.6 H VBG HCO3 24.3 VBG Total CO2 25.6 VBG O2 Saturation 92.4 H VBG Base Excess -0.8 VBG Lactic Acid 1.9 Sodium 139 Potassium 4.1 Chloride 104 Carbon Dioxide 29 Anion Gap 10.1 BUN 14 Creatinine 0.70 Estimated Creat Clear 106 Estimated GFR 89 Est GFR ( Amer) 108 Glucose 122 H POC Glucose Calcium 9.3 Magnesium 1.6 Total Bilirubin 0.4 AST 28 ALT 25 Alkaline Phosphatase 117 Troponin I < 0.01 < 0.01 C-Reactive Protein 20.2 H Total Protein 7.0 Albumin 4.0 Globulin 3.0 Albumin/Globulin Ratio 1.3 Procalcitonin 0.060 Chlamy pneumoniae PCR Not detected Adenovirus (PCR) Not detected B. pertussis DNA (PCR) Not detected Coronavirus OC43 (PCR) Not detected Coronavirus HKU1 (PCR) Not detected Coronavirus 229E (PCR) Not detected SARS-CoV-2 (PCR) Not detected Coronavirus NL63 (PCR) Not detected Human Metapneumovir PCR Not detected Influenza A (H1) PCR Not detected Influ A (H1N1/09) PCR Not detected Influenza A (H3) PCR Not detected Influenza Type A (PCR) Not detected Influenza Type B (PCR) Not detected M. pneumoniae (PCR) Not detected Parainfluenza 1 (PCR) Not detected Parainfluenza 2 (PCR) Not detected Parainfluenza 3 (PCR) Not detected Parainfluenza 4 (PCR) Not detected RSV (PCR) Not detected Entero/Rhino (PCR) Detected A DS: Diagnosis Discharge Diagnosis (1) Respiratory failure with hypoxia: Status: Acute Code(s): J96.91 - Respiratory failure, unspecified with hypoxia Qualifiers: Chronicity: acute Qualified Code(s): J96.01 - Acute respiratory failure with hypoxia (2) Asthma exacerbation: Status: Acute Code(s): J45.901 - Unspecified asthma with (acute) exacerbation Qualifiers: Asthma persistence: persistent Asthma severity: moderate Qualified Code(s): J45.41 - Moderate persistent asthma with (acute) exacerbation (3) BMI 45.0-49.9, adult: Status: Chronic Code(s): Z68.42 - Body mass index [BMI] 45.0-49.9, adult (4) Diabetes mellitus: Status: Acute Code(s): E11.9 - Type 2 diabetes mellitus without complications Qualifiers: Diabetes mellitus type: type 2 Diabetes mellitus terminal makeup operator insulin use: without terminal makeup operator use Diabetes mellitus complication status: without complication Qualified Code(s): E11.9 - Type 2 diabetes mellitus without complications (5) Hyperlipidemia: Status: Acute Code(s): E78.5 - Hyperlipidemia, unspecified Qualifiers: Hyperlipidemia type: mixed hyperlipidemia Qualified Code(s): E78.2 - Mixed hyperlipidemia (6) HTN (hypertension), benign: Status: Chronic Code(s): I10 - Essential (primary) hypertension Meds Home Medications and Allergies Home Medications ?Medication ?Instructions ?Recorded ?Confirmed ?Type blood sugar diagnostic (Blood #50 ea 04/28/22 01/09/24 Rx Glucose Test strips) albuterol sulfate 90 mcg/actuation 2 inh inhalation Q6H PRN shortness 06/15/22 09/05/24 Rx aerosol inhaler of breath or wheezing 90 days #8.5 grams folic acid 1 mg tablet 1 mg PO DAILY 07/07/23 09/05/24 History cholecalciferol (vitamin D3) 125 125 mcg PO DAILY 08/09/23 09/05/24 History mcg (5,000 unit) tablet naproxen 500 mg tablet 500 mg PO BID 08/09/23 09/05/24 History ipratropium 0.5 mg-albuterol 3 mg 3 ml inhalation Q6H PRN shortness 11/28/23 09/05/24 Rx (2.5 mg base)/3 mL nebulization of breath or wheezing #180 mL soln azelastine 137 mcg (0.1 %) nasal 2 spray intranasal HS 90 days #30 01/09/24 09/05/24 Rx spray mL fluticasone propionate 50 2 spray intranasal DAILY 90 days 01/09/24 09/05/24 Rx mcg/actuation nasal #16 grams spray,suspension (Flonase Allergy Relief) mirabegron 25 mg tablet,extended 25 mg PO DAILY 02/08/24 09/05/24 History release 24 hr (Myrbetriq) budesonide-formoterol HFA 160 2 puff inhalation BID 90 days 06/26/24 09/05/24 Rx mcg-4.5 mcg/actuation aerosol #10.2 grams inhaler (Symbicort) azithromycin 250 mg tablet 250 mg PO DAILY 5 days #5 tabs 09/05/24 Rx buspirone 15 mg tablet 15 mg PO TIDP PRN Anxiety 09/05/24 09/05/24 History duloxetine 60 mg capsule,delayed 60 mg PO DAILY 09/05/24 09/05/24 History release glucosamine-chondroitin 250 mg-200 1 tab PO BID 09/05/24 09/05/24 History mg tablet (Osteo Bi-Flex) linaclotide 72 mcg capsule 72 mcg PO DAILY 09/05/24 09/05/24 History (Linzess) metformin 500 mg tablet 500 mg PO DAILY 09/05/24 09/05/24 History montelukast 10 mg tablet 10 mg PO HS 09/05/24 09/05/24 History prednisone 20 mg tablet 40 mg (2 x 20 mg) PO DAILY 3 days 09/05/24 Rx #6 tabs rosuvastatin 20 mg tablet 20 mg PO HS 09/05/24 09/05/24 History valsartan 320 1 tab PO DAILY 09/05/24 09/05/24 History mg-hydrochlorothiazide 12.5 mg tablet New Prescriptions to Start Prescriptions: Franki Almendarez prednisone Franki Nevarez Allergies Allergy/AdvReac Type Severity Reaction Status Date / Time bupropion [From Wellbutrin] Allergy Severe Anaphylaxis Verified 05/28/24 07:34 aspirin [ASPIRIN] Allergy Mild Unknown Verified 09/05/24 01:38 allergy reaction doxycycline [DOXYCYCLINE] Allergy Mild Unknown Verified 09/05/24 01:38 allergy reaction diazepam [From Valium] Allergy Unknown Verified 09/05/24 01:38 allergy reaction Penicillins Allergy Unknown Verified 09/05/24 07:35 allergy reaction alprazolam [From Xanax] AdvReac Severe Agitated Verified 05/28/24 07:34 Discharge Plan Disposition Patient Disposition: Home, Self-Care Follow up Plan Follow up with: Yenny Dhillon APRN [Primary Care Provider] - 09/10/24 Prescriptions/Medication Reconciliation: New prednisone 20 mg Tablet 40 mg PO DAILY 3 Days Qty: 6 0RF azithromycin 250 mg tablet 250 mg PO DAILY 5 Days Qty: 5 0RF Continued (DME) Blood Glucose Test Strip See Rx Instructions .Route Qty: 50 3RF Rx Instructions: BID naproxen 500 mg tablet 500 mg PO BID Patient Comments: TAKE 1 TABLET BY MOUTH TWICE DAILY WITH FOOD cholecalciferol (vitamin D3) 125 mcg (5,000 unit) tablet 125 mcg PO DAILY Patient Comments: TAKE 1 TABLET BY MOUTH ONCE DAILY folic acid 1 mg tablet 1 mg PO DAILY azelastine 137 mcg (0.1 %) aerosol,spray 2 spray intranasal HS 90 Days Qty: 30 2RF Rx Instructions: administer into each nostril fluticasone propionate [Flonase Allergy Relief] 50 mcg/actuation spray,suspension 2 spray NS DAILY 90 Days Qty: 16 3RF Rx Instructions: administer into each nostril Myrbetriq 25 mg tablet extended release 24 hr 25 mg PO DAILY albuterol sulfate 90 mcg/actuation HFA aerosol inhaler 2 inh IH Q6H PRN (Reason: shortness of breath or wheezing) 90 Days Qty: 8.5 3RF ipratropium-albuterol 0.5 mg-3 mg(2.5 mg base)/3 mL solution for nebulization 3 ml INHALATION Q6H PRN (Reason: shortness of breath or wheezing) Qty: 180 3RF budesonide-formoterol [Symbicort] 160-4.5 mcg/actuation HFA aerosol inhaler 2 puff IH BID 90 Days Qty: 10.2 3RF Linzess 72 mcg capsule 72 mcg PO DAILY Patient Comments: TAKE 1 CAPSULE BY MOUTH ONCE DAILY FOR CONSTIPATION glucosamine-chondroitin [Osteo Bi-Flex] 250-200 mg Tablet 1 tab PO BID buspirone 15 mg tablet 15 mg PO TIDP PRN (Reason: Anxiety) Patient Comments: TAKE 1 TABLET BY MOUTH THREE TIMES DAILY NEEDED rosuvastatin 20 mg tablet 20 mg PO HS Patient Comments: TAKE 1 TABLET BY MOUTH ONCE DAILY duloxetine 60 mg capsule,delayed release(DR/EC) 60 mg PO DAILY Patient Comments: TAKE 1 CAPSULE BY MOUTH ONCE DAILY DIRECTED valsartan-hydrochlorothiazide 320-12.5 mg tablet 1 tab PO DAILY Patient Comments: TAKE 1 TABLET BY MOUTH ONCE DAILY montelukast 10 mg tablet 10 mg PO HS Rx Instructions: Take 1 tablet by mouth once daily metformin 500 mg tablet 500 mg PO DAILY Rx Instructions: Take 1 tablet by mouth twice daily Problem Reconciliation Problems Reviewed?: Yes Patient Discharge Instructions ACTIVITY: Continue current activity DIET: continue same diet Patient Instructions: DI for Asthma -- Adult, DI for Shortness of Breath, DI for Respiratory Failure Print Language: Hungarian Providers Primary Care Provider: Yenny Dhillon Admit Provider: Franki Nevarez Attending Provider: Franki Nevarez
--- NOTE | 2024-09-07 13:43 | CARE MANAGER ---
Attempted to contact patient related to hospital discharge x2. No VM option.
== END 2024-09-05 13:03 | disposition home or self-care (01) ==
LOC: ER 09-05 01:21 → 2ND 09-05 01:51
PROVIDERS: Emergency Medicine; Nurse Practitioner Acute Care; Physician Assistant; Admitting Provider Student in an Organized Health Care Education/Training Program; Emergency Provider Emergency Medicine; PCP Nurse Practitioner Family; Visit Provider Student in an Organized Health Care Education/Training Program
DX: J96.01 Acute respiratory failure with hypoxia (principal); J45.41 Moderate persistent asthma with (acute) exacerbation; E11.9 Type 2 diabetes mellitus without complications; E78.2 Mixed hyperlipidemia; I10 Essential (primary) hypertension; Z79.899 Other long term (current) drug therapy; Z79.84 Long term (current) use of oral hypoglycemic drugs; F17.210 Nicotine dependence, cigarettes, uncomplicated; E66.01 Morbid (severe) obesity due to excess calories; Z68.42 Body mass index [BMI] 45.0-49.9, adult; F39 Unspecified mood [affective] disorder
CPT/HCPCS: 36415; 71045; 80048; 80053; 82803; 82962; 83735; 84145; 84484; 85007; 85025; 86140; 87265; 87486; 87581; 87632; 87635; 93005; 94640; 99291; G0378; J1100; J1200; J1650; J3475; J7620

== ENCOUNTER 2025-03-27 10:57 | Outpatient (CLI) | payer OTHER, SELFPAY | END 2025-03-27 23:59 | disposition home or self-care (01) | LOC: RT 10:59 | PROVIDERS: PCP Nurse Practitioner Family; Visit Provider Nurse Practitioner | DX: I47.10 Supraventricular tachycardia, unspecified (principal); I47.29 Other ventricular tachycardia; I49.1 Atrial premature depolarization; I49.3 Ventricular premature depolarization; G47.33 Obstructive sleep apnea (adult) (pediatric) | CPT/HCPCS: 93270 ==

== ENCOUNTER 2025-04-29 09:00 | Outpatient (RCR) | payer OTHER, SELFPAY | END 2025-04-29 23:59 | disposition home or self-care (01) | LOC: PT 09:00 | PROVIDERS: Visit Provider Orthopaedic Surgery Adult Reconstructive Orthopaedic Surgery | DX: M51.360 Other intervertebral disc degeneration, lumbar region with discogenic back pain only (principal) | CPT/HCPCS: 97014; 97110; 97162; G0283 ==

== ENCOUNTER 2025-05-03 12:55 | Outpatient (CLI) | payer OTHER, SELFPAY ==
--- NOTE | 2025-05-03 | MM_ITS ---
PROCEDURE INFORMATION: Exam: MG Bilateral Screening 3D Mammography Exam date and time: 05/03/2025 1:07 PM Age: 49 years old Clinical indication: Screening mammogram TECHNIQUE: Imaging protocol: Bilateral Screening tomosynthesis and 2D mammography including computer-aided detection (CAD) when performed. COMPARISON: 1. MG MM DIG SCREENING MAMM BI W/CAD 04/10/2024 4:03 PM 2. MG MM DIG SCREENING MAMM BI W/CAD 04/29/2022 4:10 PM FINDINGS: MAMMOGRAPHY: Breast composition: The breasts are almost entirely fatty. Mass: None. Architectural distortion: No new or suspicious architectural distortion. Calcifications: No new or suspicious calcifications are present Asymmetric density: No new or suspicious asymmetric density is present Skin thickening: None. Axillary adenopathy: None. IMPRESSION: No mammographic evidence of malignancy. Recommend annual screening mammography unless otherwise clinically indicated. ASSESSMENT: BI-RADS category 1: Negative.
--- OUTSIDE RECORDS SUMMARY | 2025-05-03 12:57 | XMS_ITS | Encounter Summary ---
Author Organization Healthcare Address [address] [place] [address] Care Team Providers Care Metalworking Specialist Name Role Phone Yenny Dhillon APRN Primary Care Provider [phone] Encounter Details Date Type Department Care Team (Late st Contact Info) Description 03/22/2025 Orders Only [facility] [address] [place] [address] Marj Matamoros APRN [address] [place] [address] Urge incontinence Social History Tobacco Use Types Packs/Day Years Used Date Smoking Tobacco: Every Day Cigarettes Smokeless Tobacco: Never Alcohol Use Standard Drinks/Week Comments Not Currently 0 (1 standard drink = 0.6 oz pur e alcohol) PHQ-2 Answer Date Recorded Patient Health Questionnaire-2 Score 2 02/29/2024 PHQ-9 Answer Date Recorded Patient Health Questionnaire-9 Score 16 08/31/2023 PHQ-2A Answer Date Recorded Patient Health Questionnaire-2 Score 4 08/31/2023 Comments Unknown Sex and Gender Information Value Date Recorded Sex Assigned at Female 08/26/2023 5:39 PM EDT Legal Sex Female 7:01 PM EDT Gender Identity Female 08/26/2023 5:39 PM EDT Sexual Orientation Straight 08/26/2023 5: 39 PM EDT documented as of this encounter Plan of Treatment Not on file documented as of this encounter Visit Diagnoses Diagnosis Urge incontinence documented in this encounter Additional Health Concerns Assessment Noted Time PHQ-9 Depression Total Score: 16 023 9:36 AM EDT A fall risk assessment has been complete d for the patient 08/31/2023 9:38 AM EDT A Body Mass Index follow-up plan has been documented for the patient 02/29/2024 10:30 AM EDT documented as of this encounter Care Teams Metalworking Specialist Relationship Specialty Start Date End Date Yenny Dhillon APRN [address] [place] [address] PCP - General 07/22/23 documented as of this encounter
--- OUTSIDE RECORDS SUMMARY | 2025-05-03 12:57 | XMS_ITS | Encounter Summary ---
Author Organization Healthcare Address [address] [place] [address] Care Team Providers Care Prepared Foods Team Leader Name Role Phone Yenny Dhillon APRN Primary Care Provider [phone] Reason for Visit * Reason Comments Med Refill Encounter Details Date Type Department Care Team (Late st Contact Info) Description 03/22/2025 [facility]ill [facility] [address] [place] [address] Marj Matamoros APRN [address] [place] [address] Urge incontinence Social History Tobacco [...] PM EDT documented as of this encounter Miscellaneous Notes * Telephone Encounter - Benji Thornton - 03/26/2025 1:08 PM EDT Patient contacted again and left vm, sending reschedule letter as well. [facility] * Telephone Encounter - Benji Thornton - 03/22/2025 3:38 PM EDT Patient contacted and left vm. [facility] documented in this encounter Plan of Treatment Not on [...] documented as of this encounter Care Teams Prepared Foods Team Leader Relationship Specialty Start Date End Date Yenny Dhillon APRN [address] [place] [address] PCP - General 07/22/23 documented as of this encounter
--- OUTSIDE RECORDS SUMMARY | 2025-05-03 12:57 | XMS_ITS | Clinical Summary ---
Author Organization Healthcare Address [address] [place] [address] Care Team Providers Care Graphic Production Artist Name Role Phone Yenny Dhillon APRN Primary Care Provider [phone] Allergies Active Allergy Reactions Criticality Noted Date Comments Alprazolam Other - please docum ent in the comment field High 07/21/2015 Aspirin Hives,Rash Medium 03/19/2015 Bupropion Anaphylaxis High 06/08/2023 Diazepam Other - please docum ent in the comment field Low 06/09/2023 Makes her mean Doxycycline Hives,Rash Medium 03/19/2015 Penicillins Hives,Rash Medium 07/22/1983 Medications metFORMIN (Glucophage) 500 MG tablet Take by mouth twice a day. 02/20/20 22 Active busPIRone (Buspar) 10 MG tablet Take 1 tablet (10 mg) by mouth twice a day. Active valsartan-hydroC HLOROthiazide (Diovan-HCT) 320-12.5 MG tablet Take 1 tablet by mouth 1 (one) time each day. 12/13/19 23 Active Vitamin E 180 MG (400 UNIT) capsule 06/20/20 23 Active Ozempic, 1 MG/DOSE, 4 MG/3ML solution pen-injector INJECT 1 MG SUBCUTANEOUSLY ONCE A WEEK ON THE SAME DAY EACH WEEK 08/15/20 23 Active rosuvastatin (Crestor) 20 MG tablet Take 1 tablet (20 mg) by mouth 1 (one) time each day. 07/23/20 23 Active nitrofurantoin, macrocrystal-mon ohydrate, (Macrobid) 100 MG capsule TAKE 1 CAPSULE BY MOUTH EVERY 12 HOURS WITH FOOD 07/14/20 23 Active naproxen (Naprosyn) 500 MG tablet Take 1 tablet (500 mg) by mouth 2 (two) times a day with meals. 07/26/20 23 Active montelukast (Singulair) 10 MG tablet Take 1 tablet (10 mg) by mouth 1 (one) time each day. 08/03/20 23 Active Misc Natural Products (Osteo Bi-Flex Adv Triple St) tablet Take 1 tablet by mouth twice a day. Active Procto-Med HC 2.5 % rectal cream APPLY A THIN LAYER OF CREAM TO AFFECTED AREA(S) 2-4 TIMES DAILY 06/13/20 23 Active folic acid (Folvite) 1 MG tablet Take 1 tablet (1 mg) by mouth 1 (one) time each day. 02/15/20 23 Active fluticasone (Flonase) 50 MCG/ACT nasal spray Administer 2 sprays into affected nostril(s) twice a day. 11/16/19 22 Active escitalopram (Lexapro) 5 MG tablet Take 1 tablet (5 mg) by mouth 1 (one) time each day. as directed 08/18/20 23 Active DULoxetine (Cymbalta) [address] capsule Take 2 capsules (60 mg) by mouth 1 (one) time each day. 08/18/20 23 Active Docusate Sodium (DSS) 100 MG capsule Take 200 mg by mouth 1 (one) time each day. Active cholecalciferol (Vitamin D-3) 5,000 Units tablet 01/18/20 23 Active polycarbophil (EQ Fiber Therapy) 625 MG tablet 05/12/20 20 Active budesonide-formo terol (Symbicort) 160-4.5 MCG/ACT inhaler 02/09/20 22 Active Linzess 72 MCG capsule capsule 02/28/20 24 Active cephalexin (Keflex) 500 MG capsule TAKE 1 CAPSULE BY MOUTH 4 TIMES DAILY 02/21/20 24 Active mirabegron ER (Myrbetriq) 25 MG tabletIndication s:Urge incontinence Take 1 tablet by mouth daily. 30 tablet 3 03/22/20 25 025 Active Active Problems Problem Noted Date Diagnosed Date Hidradenitis suppurativa 08/31/2023 023 History of hysterectomy 08/31/2023 08/31/20 23 HTN (hypertension), benign 08/31/202308/31 Pharyngitis 08/31/2023 08/31/2023 Wound dehiscence 08/31/2023 08/31/2023 Urge incontinence 08/31/2023 Stress incontinence 08/31/2023 Nocturia 08/31/2023 Carpal tunnel syndrome 06/09/2023 Depression 06/09/2023 08/31/2023 Marijuana smoker 06/09/2023 08/31/2023 Smoker 06/09/2023 08/31/2023 Dehydration 06/08/2023 08/31/2023 Morbid (severe) obesity due to excess calories 0 02/15/2022 08/31/2023 Overview (08/31/2023): Last Assessment & Plan: Condition: stable Co-morbidities: Type 2 Diabetes Follow up in: three months Type 2 diabetes mellitus 02/15/2022 Overview (08/31/2023): Last Assessment & Plan: Condition: stable Discussed glucose control targets. Educated on: Lifestyle changes Follow up in: three months with PCP Vitamin D deficiency 02/15/2022 08/31/2023 Overview (08/31/2023): Last Assessment & Plan: Condition: stable Follow up in: three months Chronic obstructive pulmonary disease, unspecifi ed 01/09/2022 08/31/2023 Overview (08/31/2023): Last Assessment & Plan: Condition: stable Reviewed trigger avoidance and reviewed proper use of inhalers and rescue medications. Reviewed concerning signs/symptoms and ER precautions. Follow up in: three months Encounters Date Type Department Care Team Description 03/22/2025 [facility] Only [facility] [address] [place] [address] Marj Matamoros, ERECTOR OPERATOR Urge incontinence 03/22/2025 Refill [facility] [address] [place] [address] Marj Matamoros APRN Urge incontinence from Last 3 Months Family History Medical History Relation Name Comments Lung cancer Father COPD Mother Diabetes Mother Heart failure Mother Hyperlipidemia Mother Hypertension Mother Kidney cancer Mother enlarge liver Mother Relation Name Status Comments Father Mother Social History Tobacco Use Types Packs/Day Years Used Date Smoking Tobacco: Every Day Cigarettes Smokeless Tobacco: Never Tobacco Cessation:Ready to Q uit: Not Asked; Counseling Given: Not Answered Alcohol Use Standard Drinks/Week Comments Not Currently [...] Orientation Straight 08/26/2023 5: 39 PM EDT Last Filed Vital Signs Vital Sign Reading Time Taken Comments Blood Pressure 101/66 02/29/2024 10:10 AM EDT Pulse 83 02/29/2024 10:10 AM EDT Temperature - - Respiratory Rate - - Oxygen Saturation - - Inhaled Oxygen Concentration - - Weight 148 kg (325 lb 6.4 oz) 02/29/2024 10:10 A M EDT Height 177.8 cm (5' 10 ) 02/29/2024 10:10 AM EDT Body Mass Index 46.69 02/29/2024 10:10 AM EDT Plan of Treatment Health Maintenance Due Date Last Done Comments [facility]-Diabetes: Hemoglobin A1C 1976 [facility]-HIV Screening 1976 [facility]-Hepatitis C Screening 1976 [facility]-Infant/Child/Adol SDOH Screenings 1976 Diabetes: Dental Exam 1986 [facility]- SDOH Screenings 1994 [facility]-Adult SDOH Screenings 1994 [facility]-DTaP,Tdap,and Td Vaccine s (1 - Tdap) 1995 [facility]-Hepatitis B Vaccines (1 of 3 - 19+ 3-dose series) 1995 [facility]-Pneumococcal Vaccine: Pediatrics (0 to 5 Years) and At-Risk Patients (6 to 49 Years) (1 of 2 - PCV) 1995 CT Colonography 2021 Colonoscopy 2021 FIT-DNA 2021 FIT 2021 FOBT 2021 Sigmoidoscopy 2021 [facility]-Colorectal Cancer Screening 2021 [id number] Vaccine ( - 2023- season) 2024 [facility]-Depression Screening 02/28/2025 024, 08/31/2023 [facility]-Influenza Vaccine (Seas[place] n Ended) 2025 [facility]-Zoster Vaccines (1 of 2) 2026 [facility]-Obesity Intervention Completed 024, 08/31/2023 HPV Vaccines Aged Out No longer eligi ble based on patient's age to complete this topic [facility]-HIB Vaccines Aged Out No longer e ligible based on patient's age to complete this topic [facility]-Hepatitis A Vaccines Aged Out No longer eligible based on patient's age to complete this topic [facility]-IPV Vaccines Aged Out No longer e ligible based on patient's age to complete this topic [facility]-Rotavirus Vaccines Aged Out No lo nger eligible based on patient's age to complete this topic Insurance MEDICAID Care Teams Graphic Production Artist Relationship Specialty Start Date End Date Yenny Dhillon APRN [address] [phone] PCP - General 07/22/23
== END 2025-05-03 23:59 | disposition home or self-care (01) ==
LOC: RAD 12:56
PROVIDERS: PCP Nurse Practitioner Family; Visit Provider Nurse Practitioner Family
DX: Z12.31 Encounter for screening mammogram for malignant neoplasm of breast (principal); R92.313 Mammographic fatty tissue density, bilateral breasts
CPT/HCPCS: 77063; 77067

== ENCOUNTER 2025-05-06 08:30 | Outpatient (CLI) | payer OTHER, SELFPAY ==
--- OUTSIDE RECORDS SUMMARY | 2025-05-06 08:32 | XMS_ITS | Clinical Summary ---
Author Organization Healthcare Address [address] [place] [address] Care Team Providers Care Supervisor Cutting And Sewing Room Name Role Phone Yenny Dhillon APRN Primary Care Provider [phone] Allergies Active Allergy Reactions Criticality Noted Date [...] Department Care Team Description 03/22/2025 Orders Only [facility] [address] [place] [address] Marj Matamoros, GEAR ROLLER Urge incontinence 03/22/2025 Refill [facility] [address], [address] [place] [address] Marj Matamoros APRN Urge incontinence [...] Health Maintenance Due Date Last Done Comments [facility]: Hemoglobin A1C 1976 [facility]-HIV Screening 1976 [...] 2021 Sigmoidoscopy 2021 [facility]-Colorectal Cancer Screening 2021 [id number] Vaccine ( - 2023- season) 2024 [facility]-Depression [...] complete this topic Insurance MEDICAID Care Teams Supervisor Cutting And Sewing Room Relationship Specialty Start Date End Date Yenny Dhillon APRN [address] [phone] PCP - General 07/22/23
--- OUTSIDE RECORDS SUMMARY | 2025-05-06 08:32 | XMS_ITS | Encounter Summary ---
Author Organization Healthcare Address [address] [place] [address] Care Team Providers Care Hot Sealing Machine Operator Name Role Phone Yenny Dhillon APRN Primary Care Provider [phone] Reason for Visit * Reason Comments Med Refill Encounter Details Date Type Department Care Team (Late st Contact Info) Description 03/22/2025 Refill [facility] [address], [address] [place] [address] Marj Matamoros APRN [address] [place] [address] Urge incontinence Social History Tobacco [...] documented as of this encounter Care Teams Hot Sealing Machine Operator Relationship Specialty Start Date End Date Yenny Dhillon APRN [address] [place] [address] PCP - General 07/22/23 documented as of this encounter
--- OUTSIDE RECORDS SUMMARY | 2025-05-06 08:32 | XMS_ITS | Encounter Summary ---
Author Organization Healthcare Address [address] [place] [address] Care Team Providers Care Aircraft Body Repairer Name Role Phone Yenny Dhillon APRN Primary Care Provider [phone] Encounter Details Date Type Department Care Team (Late st Contact Info) Description 03/22/2025 Orders Only [facility] [address] [place] [address] Marj Matamoros APRN [address] [place] [address] Urge incontinence Social History Tobacco [...] documented as of this encounter Care Teams Aircraft Body Repairer Relationship Specialty Start Date End Date Yenny Dhillon APRN [address] [place] [address] PCP - General 07/22/23 documented as of this encounter
--- NOTE | 2025-05-06 08:45 | CA_ITS ---
APPROVED REPORT EXAM: Comprehensive 2D, Doppler, and color-flow Echocardiogram Visiting Nurse: Fabi Rivero RDCS Ht: 5 ft 10 in Wt: 374lbs BSA: 2.72 BP: 134/80 mmHg Indications: SOA M-Mode Dimensions RVDd 1.63 cm (0.9-2.6) LA Diam 2.34 cm (1.9-4.0) LVDd 5.84 cm (3.5-5.7) LVDs 4.65 cm (3.5-5.7) IVSd 0.76 cm (0.6-1.1) PWd 0.79 cm (0.6-1.1) EF (Teich) 41.00% FS 20.40% EDV (Teich) 169.20 mL ESV (Teich) 99.80 mL Left Ventricle The left ventricle is normal size. The left ventricular systolic function is normal. The left ventricular ejection fraction is within the normal range. There is normal left ventricular wall thickness. There is normal LV segmental wall motion. The left ventricular diastolic function is normal. LVEF is 55%. Right Ventricle The right ventricle is normal size. The right ventricular systolic function is normal. Atria The left atrium size is normal. The right atrium size is normal. There is no Doppler evidence of interatrial shunt. Aortic Valve Aortic valve opens well. There is no aortic valvular stenosis. No aortic regurgitation is present. Mitral Valve The mitral valve is normal in structure. No evidence of mitral valve stenosis. There is no mitral valve regurgitation noted. Tricuspid Valve Tricuspid valve is grossly normal in structure and function. Trace tricuspid regurgitation. There is insufficient TR jet to estimate RVSP. Pulmonic Valve The pulmonary valve is normal in structure. Trace pulmonic regurgitation. Great Vessels The aortic root is normal in size. IVC is normal in size and collapses >50% with inspiration. Pericardium There is no pericardial effusion. Other Information Study Quality: Fair Conclusion Normal biventricular systolic function. No significant valvular stenosis or regurgitation. Electronically signed by : Aurelia Alvarenga MD 05/08/2025 21:42:40
== END 2025-05-06 23:59 | disposition home or self-care (01) ==
LOC: RT 08:31
PROVIDERS: PCP Nurse Practitioner Family; Visit Provider Nurse Practitioner
DX: R94.31 Abnormal electrocardiogram [ECG] [EKG] (principal); R06.02 Shortness of breath
CPT/HCPCS: 93306

== ENCOUNTER 2025-06-06 16:00 | Outpatient (RCR) | payer OTHER, SELFPAY | END 2025-06-06 23:59 | disposition home or self-care (01) | LOC: PT 16:00 | PROVIDERS: Visit Provider Orthopaedic Surgery Adult Reconstructive Orthopaedic Surgery | DX: M51.369 Other intervertebral disc degeneration, lumbar region without mention of lumbar back pain or lower extremity pain (principal) | CPT/HCPCS: 97014; 97110; G0283 ==

== ENCOUNTER 2025-06-11 13:54 | Outpatient (RCR) | payer OTHER, SELFPAY | END 2025-06-11 23:59 | disposition home or self-care (01) | LOC: PT 13:54 | PROVIDERS: Visit Provider Orthopaedic Surgery Adult Reconstructive Orthopaedic Surgery | DX: M47.816 Spondylosis without myelopathy or radiculopathy, lumbar region (principal) | CPT/HCPCS: 97110 ==

== ENCOUNTER 2025-06-17 13:18 | Outpatient (CLI) | payer OTHER, SELFPAY ==
--- NOTE | 2025-06-17 13:22 | MR_ITS ---
FINAL REPORT TECHNIQUE: Multiplanar MR without contrast CLINICAL HISTORY: numbness and tingling radiates down both legs COMPARISON: 12/19/2023 FINDINGS: Sagittal images show normal vertebral height. Alignment is normal. There are discogenic endplate signal changes at L3-4 which have mildly increased from prior exam. On sagittal imaging there is a moderate annular disc bulge at T11-12 which is grossly similar to prior exam. No axial imaging provided at this level. T12-L1: Unremarkable. L1-2: Unremarkable L2-3: Unremarkable L3-4: Mild to moderate annular disc bulge with mild facet arthropathy. Mild central canal stenosis with mild neuroforaminal narrowing, similar to prior exam. L4-5: Mild annular disc bulge with moderate facet arthropathy. Borderline canal stenosis. L5-S1: Minimal annular disc bulge with moderate facet arthropathy and mild neuroforaminal narrowing. IMPRESSION: Multilevel degenerative changes most pronounced at T11-12 and L3-4, similar to prior exam. Reviewed, Interpreted and Dictated by Susanna Thakkar MD Transcribed by Nena Garner Authenticated and [facility]
--- OUTSIDE RECORDS SUMMARY | 2025-06-17 13:26 | XMS_ITS | Clinical Summary ---
Author Organization Healthcare Address [address] [place] [address] Care Team Providers Care Silver Miner Name Role Phone Yenny Dhillon APRN Primary Care Provider [phone] Allergies Active Allergy Reactions Criticality Noted Date [...] Department Care Team Description 03/22/2025 [facility] [address] [place] [address] Marj Matamoros, THREAD GRINDER Urge incontinence 03/22/2025 [facility] [address] [place] [address] Marj Matamoros APRN Urge incontinence [...] Health Maintenance Due Date Last Done Comments [facility]-Diabetes: Hemoglobin A1C 1976 [facility]-HIV Screening 1976 [facility]-Hepatitis C Screening 1976 [facility]-/Child/Adol SDOH Screenings 1976 Diabetes: Dental Exam 1986 [...] 2021 Sigmoidoscopy 2021 [facility]-Colorectal Cancer Screening 2021 [id number] Vaccine ( - season) 2024 [facility]-Depression Screening 02/28/2025 024, 08/31/2023 [facility]-Influenza Vaccine (#1) 2025 [facility]-Zoster Vaccines (1 of 2) 2026 [...] complete this topic Insurance MEDICAID Care Teams Silver Miner Relationship Specialty Start Date End Date Yenny Dhillon APRN [address] [phone] PCP - General 07/22/23
== END 2025-06-17 23:59 | disposition home or self-care (01) ==
LOC: RAD 13:19
PROVIDERS: PCP Nurse Practitioner Family; Visit Provider Physician Assistant
DX: M47.814 Spondylosis without myelopathy or radiculopathy, thoracic region (principal); M47.816 Spondylosis without myelopathy or radiculopathy, lumbar region
CPT/HCPCS: 72148

== ENCOUNTER 2025-07-08 15:09 | Emergency (ER) | payer OTHER, SELFPAY ==
[2025-07-08 15:17] VITALS: BP 79/45; PULSE 95; RESP 18; TEMP 37; O2SAT 97; BMI 53.1
[2025-07-08 15:28] VITALS: BP 74/48; PULSE 96; RESP 21; O2SAT 92
--- OUTSIDE RECORDS SUMMARY | 2025-07-08 15:30 | XMS_ITS | Clinical Summary ---
Author Organization Healthcare Address [address] [place] [address] Care Team Providers Care Ambulatory Care Name Role Phone Yenny Dhillon APRN Primary Care Provider [phone] Allergies Active Allergy Reactions Criticality Noted Date [...] ER precautions. Follow up in: three months Family History Medical History Relation Name Comments [...] Health Maintenance Due Date Last Done Comments [facility]-Diabetes: Hemoglobin A1C 1976 [facility]-HIV Screening 1976 [...] 2021 Sigmoidoscopy 2021 [facility]-Colorectal Cancer Screening 2021 [id number] Vaccine ( season) 2024 [facility]-Depression Screening 02/28/2025 024, 08/31/2023 [...] patient's age to complete this topic Insurance Care Teams Ambulatory Care Relationship Specialty Start Date End Date Yenny Dhillon APRN [address], [place] [phone] PCP - General 07/22/23
[2025-07-08 15:34] VITALS: BP 97/56; PULSE 100; RESP 21; O2SAT 97
--- NOTE | 2025-07-08 15:35 | PC.NURSE ---
Patients FSBS is [phone]
--- NOTE | 2025-07-08 15:39 | HMH.EDGENADL ---
Discharge Plan Disposition Chief Complaint: Skin/Abscess/Foreign Body Prescriptions Prescriptions: No Action (DME) Blood Glucose Test Strip See Rx Instructions .Route Qty: 50 3RF Rx Instructions: BID naproxen 500 mg tablet 500 mg PO BID Patient Comments: TAKE 1 TABLET BY MOUTH TWICE DAILY WITH FOOD cholecalciferol (vitamin D3) 125 mcg (5,000 unit) tablet 125 mcg PO DAILY Patient Comments: TAKE 1 TABLET BY MOUTH ONCE DAILY folic acid 1 mg tablet 1 mg PO DAILY Myrbetriq 25 mg tablet extended release 24 hr 25 mg PO DAILY Ozempic 0.25 mg or 0.5 mg (2 mg/3 mL) pen injector 0.25 mg SQ WEEKLY lamotrigine 100 mg tablet extended release 24hr 100 mg PO DAILY Patient Comments: TAKE 1 TABLET BY MOUTH ONCE DAILY AT NIGHT AT BEDTIME DIRECTED metoprolol succinate [Toprol XL] 100 mg tablet extended release 24 hr 100 mg PO DAILY Qty: 30 6RF albuterol sulfate 90 mcg/actuation HFA aerosol inhaler 2 inh IH Q6H PRN (Reason: shortness of breath or wheezing) 90 Days Qty: 8.5 3RF budesonide-formoterol [Symbicort] 160-4.5 mcg/actuation HFA aerosol inhaler 2 puff IH BID 90 Days Qty: 10.2 3RF fluticasone propionate [Flonase Allergy Relief] 50 mcg/actuation spray,suspension 2 spray NS DAILY PRN (Reason: allergy symptoms) 90 Days Qty: 16 3RF Rx Instructions: administer into each nostril montelukast 10 mg tablet 10 mg PO QPM 90 Days Qty: 90 2RF loratadine 10 mg tablet 10 mg PO DAILY Patient Comments: TAKE 1 TABLET BY MOUTH ONCE DAILY ipratropium-albuterol 0.5 mg-3 mg(2.5 mg base)/3 mL solution for nebulization 3 ml INHALATION Q6H PRN (Reason: shortness of breath or wheezing) Qty: 180 3RF Linzess 72 mcg capsule 72 mcg PO DAILY Patient Comments: TAKE 1 CAPSULE BY MOUTH ONCE DAILY FOR CONSTIPATION buspirone 15 mg tablet 15 mg PO TIDP PRN (Reason: Anxiety) Patient Comments: TAKE 1 TABLET BY MOUTH THREE TIMES DAILY NEEDED rosuvastatin 20 mg tablet 20 mg PO HS Patient Comments: TAKE 1 TABLET BY MOUTH ONCE DAILY duloxetine 60 mg capsule,delayed release(DR/EC) 60 mg PO DAILY Patient Comments: TAKE 1 CAPSULE BY MOUTH ONCE DAILY DIRECTED valsartan-hydrochlorothiazide 320-12.5 mg tablet 1 tab PO DAILY Patient Comments: TAKE 1 TABLET BY MOUTH ONCE DAILY metformin 500 mg tablet 500 mg PO DAILY Rx Instructions: Take 1 tablet by mouth twice daily Referrals Follow up/Referrals: Yenny Dhillon APRN [Primary Care Provider, Medical] - See instructions Stand Alone Forms Stand Alone Forms: Transfer Record - ED Instructions Patient Instructions: DI for Skin Abscess Print Language Print Language: Spanish Discharge ED Provider: Keaton Patel General Adult HPI General Chief complaint: Skin/Abscess/Foreign Body Stated complaint: Sore right leg with drainage Time Seen by Provider: 07/08/25 15:34 Mode of Arrival: Wheelchair Source of Information: Patient Description of Symptoms (Recalled from ER Triage Doc. by RN): Pt presents for evaluation of a wound to her right inner thigh. Pt states it initially started as a boil on tuesday. Pt states she tried to yuli the boil on tuesday, and now has significant redness, drainage, and necrotic tissue History of Present Illness HPI narrative: Patient is a 50-year-old female with past medical history of [id number] diabetes, chronic smoker, hidradenitis suppurativa who presents emergency department for evaluation of rapidly progressive infection in the groin. Onset was acute, she initially had a boil on Tuesday in her right proximal thigh in the setting of hidradenitis suppurativa which she lanced herself. Initially had some improvement however over the last 24 hours had rapidly progressive swelling of her thigh with black discoloration causing her to become concerned and present here for continued evaluation. She continues to smoke. There is associated nonbloody nonbilious vomiting. No other acute complaints at this time. Please note that above description of symptoms, in this electronic medical record under categorization of recalled from ER triage doctor by RN are reflective of an initial nursing assessment, however, is not reflective of my full history and physical exam that was personally taken and clarified. Consequentially, this preceding description of symptoms, which may include the patient's categorized chief complaint in the EMR, do not reflect my personal clinical impression, and the ultimate description of history of present illness and patient stated complaints should be deferred to this section of the note. Unless stated otherwise or congruent with this section of the note, additional signs, symptoms, or incongruence should be interpreted as inaccurate with my clinical impression. Related Data Home Medications ?Medication ?Instructions ?Recorded ?Confirmed folic acid 1 mg tablet 1 mg PO DAILY 07/07/23 07/08/25 cholecalciferol (vitamin D3) 125 125 mcg PO DAILY 08/09/23 07/08/25 mcg (5,000 unit) tablet naproxen 500 mg tablet 500 mg PO BID 08/09/23 07/08/25 mirabegron 25 mg tablet,extended 25 mg PO DAILY 02/08/24 07/08/25 release 24 hr (Myrbetriq) buspirone 15 mg tablet 15 mg PO TIDP PRN Anxiety 09/05/24 07/08/25 duloxetine 60 mg capsule,delayed 60 mg PO DAILY 09/05/24 07/08/25 release linaclotide 72 mcg capsule 72 mcg PO DAILY 09/05/24 07/08/25 (Linzess) metformin 500 mg tablet 500 mg PO DAILY 09/05/24 07/08/25 rosuvastatin 20 mg tablet 20 mg PO HS 09/05/24 07/08/25 valsartan 320 1 tab PO DAILY 09/05/24 07/08/25 mg-hydrochlorothiazide 12.5 mg tablet semaglutide 0.25 mg or 0.5 mg (2 0.25 mg SQ WEEKLY 03/27/25 07/08/25 mg/3 mL) subcutaneous pen injector (Ozempic) loratadine 10 mg tablet 10 mg PO DAILY 04/25/25 07/08/25 lamotrigine 100 mg tablet,extended 100 mg PO DAILY 06/25/25 07/08/25 release 24 hr Previous Rx's ?Medication ?Instructions ?Recorded blood sugar diagnostic (Blood #50 ea 04/28/22 Glucose Test strips) albuterol sulfate 90 mcg/actuation 2 inh inhalation Q6H PRN shortness 06/15/22 aerosol inhaler of breath or wheezing 90 days #8.5 grams ipratropium 0.5 mg-albuterol 3 mg 3 ml inhalation Q6H PRN shortness 11/28/23 (2.5 mg base)/3 mL nebulization of breath or wheezing #180 mL soln budesonide-formoterol HFA 160 2 puff inhalation BID 90 days 05/02/25 mcg-4.5 mcg/actuation aerosol #10.2 grams inhaler (Symbicort) fluticasone propionate 50 2 spray intranasal DAILY PRN 05/02/25 mcg/actuation nasal allergy symptoms 90 days #16 grams spray,suspension (Flonase Allergy Relief) montelukast 10 mg tablet 10 mg PO QPM 90 days #90 tabs 05/02/25 metoprolol succinate 100 mg 100 mg PO DAILY #30 tabs 06/25/25 tablet,extended release 24 hr (Toprol XL) Allergies Allergy/AdvReac Type Severity Reaction Status Date / Time bupropion (From Wellbutrin) Allergy Severe Anaphylaxis Verified 06/25/25 11:37 aspirin (ASPIRIN) Allergy Mild Unknown Verified 06/25/25 11:37 allergy reaction doxycycline (DOXYCYCLINE) Allergy Mild Unknown Verified 06/25/25 11:37 allergy reaction diazepam (From Valium) Allergy Unknown Verified 06/25/25 11:37 allergy reaction Penicillins Allergy Unknown Verified 06/25/25 11:37 allergy reaction alprazolam (From Xanax) AdvReac Severe Agitated Verified 06/25/25 11:37 [facility] PFS Disclaimer: The information contained in this section may have been updated after the patient was seen, as this information can be updated by other users. Medical History Respiratory failure with hypoxia Frequent PVCs Shortness of breath Snoring History of absence seizures Altered awareness, transient Hidradenitis Complex multifocal hidradenitis. Recent left medial thigh abscessed hidradenitis status post spontaneous drainage. Left lateral mid abdominal wall wound also noted (possible same etiology). Wound dehiscence Pharyngitis Abnormal electrocardiogram [ECG] [EKG] BMI 50.0-59.9, adult Bronchitis Diabetes mellitus Hyperlipidemia Allergic rhinitis Family history of emphysema Asthma Family history of asthma Tobacco abuse counseling Tobacco abuse disorder Dyspnea on exertion Smoking greater than 30 pack years Seasonal allergic rhinitis Moderate persistent asthma Morbid obesity HTN (hypertension), benign Hidradenitis suppurativa Surgical History History of carpal tunnel surgery Hx of cholecystectomy History of tonsillectomy History of hysterectomy Family History Other Cancer Coronary artery disease FHx: mental illness Heart attack Hyperlipidemia Hypertension No significant family history Stroke Social History Smoking Status: Current every day smoker tobacco type: cigarettes packs per day: 1 second hand exposure: Yes alcohol intake: never substance use type: marijuana current occupational status: unemployed Travel in the last 8 weeks?: None housing: house Have you lived/traveled outside [place] in past 30 days?: No Contact w/someone who lives/traveled outside [place] past 30 days?: No Exposure to someone with infectious disease in past 14 days?: No Do you have a fever (greater than 100.4 F or 38 C)?: No Have you tested positive for COVID-19?: No Exposed to someone with COVID-19 in past 14 days?: No Do you have a sore throat?: No Do you have a cough?: No Do you have any weakness?: No Do you have any diarrhea?: No Are you experiencing any unusual bleeding?: No Do you have any muscle aches/pain?: No Do you have any abdominal pain?: No Are you experiencing loss of taste or smell?: No Other Medical History Have you received the Flu Vaccine for this season: No Have you received the Pneumonia Vaccine: No ROS Obtained: Yes Systems reviewed as appropriate & no additional complaints except as documented Physical Exam General General appearance: alert Comment: Ill-appearing Head Head exam: atraumatic and normocephalic Eye Eye exam: Present PERRL and EOMI ENT ENT exam: Present mucous membranes moist Neck Neck exam: Present normal inspection Chest Chest inspection: Present normal inspection and symmetric chest wall rise Respiratory Respiratory exam: Present normal lung sounds bilaterally; Absent respiratory distress Cardiovascular Cardiovascular exam: Present normal rhythm and tachycardia Abdominal Exam Abdominal exam: Present soft; Absent tenderness Bimanual exam: Present other (Large sports ball sized area of erythema and fluctuance with a central nidus of black necrosis in the right proximal groin adjacent to the vulva) Extremities Exam Extremities exam: Present normal inspection Neurological Exam Neurological exam: Present alert Psychiatric Psychiatric exam: Present normal affect Skin Skin exam: Present warm and dry Medical Decision Making Medical Records Screening: Per USPSTF and CDC recommendations, given the prevalence of disease in our region, it is our hospital?s policy to screen for HIV and viral Hepatitis for all patients aged 18 and over and those with ongoing risk factors. Cristian Inquiry Pt receiving controlled substance: No Vital Signs: 07/08/25 15:17 07/08/25 15:28 07/08/25 15:34 Temperature 98.6 F Temperature Source Oral Pulse Rate 96 H 100 H Pulse Rate [Right] 95 H Respiratory Rate 18 21 21 Blood Pressure 74/48 L 97/56 L Blood Pressure [Right Arm] 79/45 L Blood Pressure Mean [Right Arm] 56 Blood Pressure Source [Right Arm] Automatic Cuff Blood Pressure Position [Right Arm] Sitting 02 Sat by Pulse Oximetry 97 92 L 97 Oxygen Delivery Method Room Air Lab Data Lab Results 07/08/25 15:33: POC Glucose 467 H* 07/08/25 15:35: WBC 24.3 H*, RBC 4.23, Hgb 11.8 L, Hct 36.0 L, MCV 85.1, MCH 27.9, MCHC 32.8, RDW 17.3, Plt Count 344, MPV 10.5 H, Neut % (Auto) 90.7 H, Lymph % (Auto) 5.0 L, [place] % (Auto) 2.7, Eos % (Auto) 0.2, Baso % (Auto) 0.4, Neut # (Auto) 22.0 H, Lymph # (Auto) 1.2, [place] # (Auto) 0.7, Eos # (Auto) 0.0, Baso # (Auto) 0.1, VBG pH 7.31, VBG pCO2 50.5, VBG pO2 42.6 H, VBG HCO3 25.0, VBG Total CO2 26.6, VBG O2 Saturation 74.8 H, VBG Base Excess -1.2, VBG Lactic Acid 3.9 H, Sodium 130 L, Potassium 4.0, Chloride 95 L, Carbon Dioxide 25, Anion Gap 14.0, BUN 37 H, Creatinine 2.20 H, Estimated Creat Clear 33, Estimated GFR 24 L, Est GFR ( Amer) 29 L, Glucose 448 H*, Calcium 9.7, Magnesium 1.9, Total Bilirubin 0.8, AST 33, ALT 23, Alkaline Phosphatase 197 H, Total Protein 6.6, Albumin 3.3 L, Globulin 3.3 H, Albumin/Globulin Ratio 1.0 L, Acetone Level None detected 07/08/25 15:35 07/08/25 15:35 Orders (Tests/Meds): ED MEDICATIONS Generic Name Dose Route Start Last Admin Trade Name Shayla PRN Reason Stop Dose Admin Lactated Ringer's 2,060 mls @ 1,030 mls/hr 07/08/25 15:35 07/08/25 15:41 Lactated Ringer's 1000 Ml Bag 30 ml/kg infuse over 2 hr (2060 ml) 07/08/25 17:34 1,030 mls/hr IV Administration .Q2H ONE Vancomycin HCl 2,500 mg/ 500 mls @ 250 mls/hr 07/08/25 16:00 Sodium Chloride IV 07/08/25 17:59 ONCE ONE Norepinephrine Bitartrate 8 mg 258 mls @ 15.48 mls/hr 07/08/25 15:51 07/08/25 15:59 / Sodium Chloride IV 08/07/25 15:50 8 mcg/min .[id number] MARIBELL 15.48 mls/hr Protocol Administration 8 MCG/MIN Miscellaneous 1 each 07/08/25 15:45 07/08/25 15:52 Vancomycin Consult Request NOTAPPLIC 08/07/25 15:44 1 each CONSULT PHARMACY MARIBELL Administration Discontinued Medications Generic Name Dose Route Start Last Admin Trade Name Shayla PRN Reason Stop Dose Admin Cefepime HCl 2 gm/ Sodium 100 mls @ 200 mls/hr 07/08/25 15:35 07/08/25 15:58 Chloride IV 07/08/25 16:04 200 mls/hr ONCE ONE Administration Clindamycin Phosphate 900 mg in 50 mls @ 100 mls/hr 07/08/25 15:37 07/08/25 15:46 Clindamycin 900mg/50ml D5w Premix IV 07/08/25 16:06 100 mls/hr ONCE ONE Administration Ondansetron HCl 4 mg 07/08/25 15:35 07/08/25 15:59 Ondansetron 4mg Odt SL 07/08/25 15:36 Not Given ONCE ONE Ondansetron HCl 4 mg 07/08/25 15:45 07/08/25 15:48 Ondansetron 4mg/2ml Vial IV 07/08/25 15:46 4 mg ONCE ONE Administration ORDERS Category Date Time Status POCUS Point of Care (ER Only) Stat Exams 07/08/25 15:30 Ordered Acetone, Serum (Rapid) Stat Lab 07/08/25 15:35 Results CBC w/Auto Diff [Complete Blood Count Auto Diff] Stat Lab 07/08/25 15:35 Results CMP [Comprehensive Metabolic Panel] Stat Lab 07/08/25 15:35 Results CRP [C-Reactive Protein] Stat Lab 07/08/25 15:35 Results MG [Magnesium] Stat Lab 07/08/25 15:35 Results POC Glucose,Bedside Routine Lab 07/08/25 15:33 Completed Blood Culture Stat Micro 07/08/25 15:50 Received VBG [Venous Blood Gas] Stat RT 07/08/25 15:35 Completed EKG Request [ECG Request] Stat Y 07/08/25 15:35 Ordered ECG Data Tracing #1: Independently interpreted by me rate is 87, rhythm is sinus with frequent PVCs, no ST elevation in anatomical contiguous leads, QTc 404. Medical Decision Narrative: In summary patient is a 50-year-old female with past medical history of scrota above presents emergency department for evaluation of groin swelling. Patient is hemodynamically unstable 74/48 upon arrival norepinephrine will be initiated, afebrile, protecting her airway. [id number] ultrasound performed at bedside shows gas artifact, patient has necrotizing soft tissue infection of her proximal thigh. She is hemodynamically unstable. Although hematologic labs will be obtained broad-spectrum antibiotics will be initiated and sepsis bolus fluids will be initiated further imaging is not warranted as this is a clinical diagnosis supported by [id number] ultrasound, we do not have the capability to take care of this patient at this facility I immediately contacted [facility] Dr. Little who suspects they will be able to immediately accept the patient however they are going to have a conversation with surgery at this time. Initial hematologic labs reviewed by [facility] white blood cell count 24.3, mild anemia 11.8 no transfusable, lactic acid 3.9 pH 7.31, ALL with creatinine of 2.2 hyperglycemia 448 for which patient is undergoing crystalloid resuscitation will defer aggressive insulin for now given that she is not acidotic and acetone is negative. [facility] contacted [facility] at approximately 4:18 PM and graciously excepted patient for transfer for continued evaluation at this time. Procedure: Procedure performed was [id number] ultrasound. Procedure performed by Keaton Patel. Site was right proximal medial groin. Large area of fluctuance was imaged with a linear probe. Gas artifact is present as well as adjacent cobblestoning consistent with necrotizing soft tissue infection. Patient tolerated the procedure well there were no immediate complications related to the procedure. Critical Care Critical Care Time Critical Care Time: Yes Attestation: On 07/08/25, the high probability of a clinically significant, sudden or life threatening deterioration of the following system(s) required my full and direct attention, intervention and personal management. The time I documented below is in addition to time spent performing reported procedures but includes the following listed in this critical care notation. Total Time Total Critical Care Time: 45
[2025-07-08 15:41] LABS: POC Glucose,Bedside 467 gm/dL (70-110)
[2025-07-08] MEDS: LACTATED RINGERS 1030 ML IV (15:41)
[2025-07-08] MEDS: CLINDAMYCIN PHOSPHATE/D5W 900 MG/50 ML PIGGYBACK 100 MG IV (15:46)
--- NOTE | 2025-07-08 15:47 | ECG_ITS ---
APPROVED REPORT Exam: Resting ECG HR:87 bpm ECG Measurements Heart Rate 87 AXES [place] 184 P 59 QRSd 95 QRS 74 QT 360 T 31 QTc 404 Conclusion SINUS RHYTHM WITH FREQUENT VENTRICULAR PREMATURE COMPLEXES LOW QRS VOLTAGE IN PRECORDIAL LEADS [QRS DEFLECTION < 1.0 mV IN CHEST LEADS] ABNORMAL RHYTHM ECG Electronically signed by : FRANCINE ARNETT, 07/08/2025 23:37:45
[2025-07-08 15:48] LABS: Hematocrit 36.0 % (37.0-47.0); Hemoglobin 11.8 g/dL (12.2-16.2); Immature Granulocytes % 1.0 %; Mean Corpuscular HGB Conc 32.8 g/dL (31.8-35.4); Mean Corpuscular Hemoglobin 27.9 pg (27.0-31.2); Mean Corpuscular Volume 85.1 fl (81-99); Nucleated Red Blood Cells % 0 %; Platelet Count 344 K/mm3 (142-424); Red Blood Count 4.23 M/mm3 (4.20-5.40); Red Cell Distribution Width-SD 54.2 fL; White Blood Count 24.3 K/mm3 (4.8-10.8)
[2025-07-08] MEDS: ONDANSETRON 4MG/2ML VIAL 4 MG IV (15:48)
[2025-07-08 15:50] LABS: VBG HCO3 25.0 mmol/L (23-30); VBG PH 7.31 mmol/L (7.31-7.41); VBG PO2 42.6 mmol/L (28-40)
--- NOTE | 2025-07-08 15:50 | PC.NURSE ---
[place] [facility] declined, they are checking with [facility]
[2025-07-08 15:52] LABS: Albumin Level 3.3 g/dl (3.5-5.0); Chloride 95 mmol/L (98-107); Lactate Venous 3.9 mmol/L (0.4-2.0); Potassium 4.0 mmoL/L (3.5-5.1); Sodium 130 mmol/L (136-145); VBG PCO2 50.5 mmol/L (35-51)
[2025-07-08] MEDS: VANCOMYCIN CONSULT REQUEST 1 EACH NOTAPPLIC (15:52)
[2025-07-08 15:55] LABS: Alanine Aminotransferase 23 U/L (12-78); Albumin/Globulin Ratio 1.0 (1.1-1.8); Alkaline Phosphatase 197 U/L (38-126); Anion Gap 14.0 mEq/L (5-15); Aspartate Amino Transferase 33 U/L (14-36); Bilirubin,Total 0.8 mg/dl (0.2-1.3); Blood Urea Nitrogen 37 mg/dl (7-17); Calcium 9.7 mg/dl (8.4-10.2); Carbon Dioxide 25 mmol/L (22.0-30.0); Creatinine Clearance Estimated 33 mL/min (50-200); Creatinine,Serum 2.20 mg/dl (0.52-1.04); Estimated Glomerular Filt Rate 24 ml/min (>60); GFR (African American) 29 ML/MIN (>60); Globulin 3.3 g/dL (1.3-3.2); Magnesium 1.9 mg/dl (1.6-2.3); Total Protein,Serum 6.6 g/dl (6.3-8.2)
[2025-07-08 15:57] LABS: Glucose 448 mg/dl (74-100)
[2025-07-08 15:58] LABS: Acetone, Serum (Rapid) None Detected (None Detect)
[2025-07-08] MEDS: CEFEPIME HCL 2 GM in 0.9 % SODIUM CHLORIDE 100 ML IV (15:58)
[2025-07-08] MEDS: NOREPINEPHRINE BITARTRATE 8 MG in 0.9 % SODIUM CHLORIDE 250 ML 15.48 MG IV (15:59)
[2025-07-08 16:16] LABS: C-Reactive Protein 430.0 mg/L (0-4)
[2025-07-08] MEDS: VANCOMYCIN HCL 2,500 MG in 0.9 % SODIUM CHLORIDE 500 ML 250 MG IV (16:17)
[2025-07-08 16:37] LABS: Total Cells Counted 100
[2025-07-08 16:40] LABS: Hypochromasia 2+
--- NOTE | 2025-07-08 16:40 | PC.NURSE ---
[facility] called for transport
[2025-07-08 17:10] VITALS: BP 99/50; PULSE 85; RESP 20; TEMP 36.7; O2SAT 92
[2025-07-08 19:51] LABS: Reflex Lactic Add Lactic Reflex
== END 2025-07-08 17:12 | disposition short-term general hospital (02) ==
PROVIDERS: Emergency Provider Emergency Medicine; PCP Nurse Practitioner Family
DX: I96 Gangrene, not elsewhere classified (principal); S71.101A Unspecified open wound, right thigh, initial encounter; R74.02 Elevation of levels of lactic acid dehydrogenase [LDH]; E11.65 Type 2 diabetes mellitus with hyperglycemia; I95.9 Hypotension, unspecified; I49.3 Ventricular premature depolarization; D72.829 Elevated white blood cell count, unspecified; L73.2 Hidradenitis suppurativa; E66.01 Morbid (severe) obesity due to excess calories; F17.210 Nicotine dependence, cigarettes, uncomplicated; I10 Essential (primary) hypertension; E78.5 Hyperlipidemia, unspecified; X58.XXXA Exposure to other specified factors, initial encounter
CPT/HCPCS: 80053; 82009; 82803; 82962; 83735; 85007; 85025; 85027; 86140; 87040; 93005; 96365; 96367; 96375; 99284; 99291; J0692; J0736; J2405; J3373; J7040; J7050; J7120

== ENCOUNTER → 2025-07-09 06:20 | Outpatient (CLI) | payer OTHER, SELFPAY ==
--- OUTSIDE RECORDS SUMMARY | 2025-07-08 17:58 | XMS_ITS | Encounter Summary ---
Author Organization Healthcare Address [address] [place] [address] Care Team Providers Care Vp Corporate Development Name Role Phone Alejo Yennystone Murrieta APRN Primary Care Provider [phone] Reason for Visit * Reason Comments Wound Check Encounter Details Date Type Department Care Team ([facility] st Contact Info) Description 07/08/2025 5:58 PM EDT - Present Hospital Encounter PAV A Inpatient [address] [place] [address] Kyle Mckinney MD [address] [place] [address] Brittany Crawford MD [address] [facility] [address] [place] [address] Necrotizing fasciitis (CMS/HCC) (Primary Dx); 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) Social History Tobacco Use Types Packs/Day Years [...] Sign Reading Time Taken Comments Blood Pressure 106/42 07/09/2025 4:00 AM EDT Pulse 87 07/09/2025 4:00 AM EDT Temperature 36.2 C (97.2 F) 07/09/2025 4:00 AM EDT Respiratory Rate 22 07/09/2025 4:00 AM EDT Oxygen Saturation 97% 07/09/2025 4:00 AM EDT Inhaled Oxygen Concentration - - Weight 177 kg (391 lb 1.5 oz) 07/08/2025 6:05 PM EDT Height 177.8 cm (5' 10 ) 07/08/2025 11:30 PM EDT Body Mass Index 56.12 07/08/2025 6:05 PM EDT documented in this encounter Functional Status * Calculated C-SSRS Risk Score (Lifetime/Recent) Answer Date of Assessment Author No Risk Indicated 07/08/2025 11:34 PM EDT Cheyanne Cabrera RN * Question Answer Date of Assessment Author 1. Wish to be (Past 1 Month) No 07/08/2025 11:34 PM EDT Cheyanne Briceño RN 2. Non-Specific Active Suicidal Thoughts (Past 1 Month) No 07/08/2025 11:34 PM EDT Cheyanne Briceño RN 6. Suicidal Behavior (Lifetime) No 07/08/2025 11:34 PM EDT Cheyanne Briceño RN documented as of this encounter Miscellaneous Notes * Progress Notes - Erik Diez MD [...] 65-20cm Tissue weight 2764g or 6lbs * Brief Op Note - Brittany Crawford MD - 07/08/2025 9:01 PM EDT Date: 07/09/25 Location: [facility] Name: Ashley Brown, : 1975, Diagnoses: Pre-op Diagnosis Necrotizing fasciitis (CMS/HCC) Post-op Diagnosis Necrotizing fasciitis (CMS/HCC) Procedure(s): Excisional debridement of right lower extremity, groin, pubis, and abdominal wall of skin, subcutaneous tissue, and muscle fascia, 65x20 cm Attending Surgeon(s): * Brittany Crawford - Primary Assistant Professor Of Art(s): * Kristy Fields MD - Resident - [...] bladder and tubing free of kinks 07/09/25 0000 CAUTI: Securement Method Securing device (Describe) 07/09/25 0000 CAUTI: Specimen Collection Port Covered with Alcohol Cap Yes 07/09/25 0000 CAUTI: Urinary Catheter Indication Yes, meets indication reason 07/09/25 0000 CAUTI: Urinary Catheter Indication Reasons ICU patient [...] leg Findings: Extensive necrotizing fasciitis Submitted by: Brittany Crawford MD - 07/09/2025 * Assessment & Plan Note - Becky Ramirez MD - 07/08/2025 7:44 PM EDT Associated Problem(s): Necrotizing fasciitis (CMS/HCC) Concern for acute infection WBC 26 Got 3L fluids and needed pressors at OSH prior to transfer To OR this evening as A Likely ICU post op IV antibiotics Resuscitation Marked and consented * ED Procedure Note - Kyle Mckinney MD - 07/08/2025 5:58 PM EDT Associated Order(s): Critical Care Procedure Reason: NSTI Critical Care Performed by: Kyle Mckinney MD Authorized by: Kyle Mckinney MD Critical care provider statement: Critical care [...] with the findings and plan as documented. Kyle Mckinney MD 07/08/252113 * ED Triage Notes - Kadi Bustamante RN - 07/08/2025 5:58 PM EDT Pt had redness to right groin/thigh and now has nec fas. Was hypotensive at OSH and started on levo. documented in this encounter Plan of Treatment Pending Results Name Type Priority Associated Diagnoses Date /Time Abscess Culture and Gram Stain Microbiology Routine Necrotizing fasciitis ([facility]) 07/08/2025 9:06 PM EDT Tissue Culture and Gram Stain Microbiology Routine Necrotizing fasciitis ([facility]) 07/08/2025 10:48 PM EDT Multi Drug Resistance Test Microbiology Routine 07/08/2025 11:50 PM EDT Geno auris Surveillance by PCR Microbiology Routine 07/08/2025 1 1:50 PM EDT Scheduled Orders Name Type Priority Associated Diagnoses Order Schedule Blood Culture (Aerobic/Anaerobet Set) Microbiology STAT STAT (Lab) for 1 Occurrences starting 07/08/2025 until 07/08/2025 Blood Culture (Aerobic/Anaerobet Set) Microbiology STAT STAT (Lab) for 1 Occurrences starting 07/08/2025 until 07/08/2025 POCT Glucose Point of Care Testing Routine Every 2 hours (Lab) for 999 Occurrences starting 07/08/2025 until 09/30/2025 Surgical Pathology Exam Pathology and Cytology Timed Necrotizing fasciitis (CMS/[facility]) Release Upon Ordering for 1 Occurrences starting 07/08/2025 Triglycerides Lab Add-On Every and for 8 Occurrences starting 07/11/2025 until 08/05/2025 Multi Drug Resistance Test Microbiology Routine Once (Lab) for 1 Occurrences starting 07/08/2025 until 07/08/2025 Geno auris Surveillance by PCR Microbiology Routine Once (Lab) f or 1 Occurrences starting 07/08/2025 until 07/08/2025 End Tidal co2 Monitoring Respiratory Care Routine For RT frequenc y use only for continuous procedures with task-based reminders at 8a and 8p until discontinued starting 07/08/2025, 1 completed SBT - Assess for SBT readiness and complete SBT trial when criteria met Respiratory Care Routine Daily until discontinued starting 07/09/2025 Ventilator - Adult - Vent Mode: Pressure Control (PC/AC); PC above PEEP (cm H2O) - NOTE: total PAP equals this value plus PEEP: 18; PEEP (cm H2O): 10; Set Resp Rate: 22 Respiratory Care Routine For RT frequenc y use only for continuous procedures with task-based reminders at 8a and 8p until discontinued starting 07/09/2025 CBC W/O Differential Lab Routine Morn ing draw (Lab) until discontinued starting 07/09/2025, 1 completed Basic Metabolic Panel, Plasma Lab Routine Morning draw (La b) until discontinued starting 07/09/2025, 1 completed Magnesium, Plasma Lab Routine Morning draw (Lab) until discontinued starting 07/09/2025, 1 completed Phosphorus Lab Routine Morning draw ( Lab) until discontinued starting 07/09/2025, 1 completed documented as of this encounter Procedures * The patient is currently admitted. The information in this section might not be complete until the patient is discharged. Procedure Name Priority Date/Time Associated Diagnosis Comments POCT GLUCOSE METER UNSOLICITED RESULTS Routine 07/09/2025 6:05 AM EDT CBC W/O DIFFERENTIAL Routine 07/09/2025 4:57 AM EDT PHOSPHORUS, PLASMA Routine 07/09/2025 4: 57 AM EDT MAGNESIUM, PLASMA Routine 07/09/2025 4:5 7 AM EDT BASIC METABOLIC PANEL, PLASMA Routine [...] 11:52 PM EDT PHOSPHORUS, PLASMA STAT 07/08/2025 11 :52 PM EDT MAGNESIUM, PLASMA STAT 07/08/2025 11: 52 PM EDT BASIC METABOLIC PANEL, PLASMA STAT 07/08/2025 11:52 PM EDT BLOOD GAS PANEL, ARTERIAL STAT 07/08/2025 11:50 PM EDT POCT GLUCOSE METER UNSOLICITED RESULTS Routine 07/08/2025 11:49 PM EDT END TIDAL CO2 MONITORING Routine 07/08/2025 11:47 PM EDT VENTILATOR - ADULT Routine 07/08/2025 11 :47 PM EDT TISSUE CULTURE AND GRAM STAIN Routine 07/08/2025 10:48 PM EDT Necrotizing fasciitis (CMS/HCC) TRANSFUSE FRESH FROZEN PLASMA Routine 07/08/2025 10:29 PM EDT TRANSFUSE RED BLOOD CELLS Routine 07/08/2025 10:29 PM EDT BLOOD GAS PANEL, ARTERIAL STAT 07/08/2025 10:08 PM EDT Necrotizing fasciitis (CMS/HCC) TRANSFUSE FRESH [...] UNSOLICITED RESULTS Routine 07/08/2025 8:51 PM EDT ED HIV 1/2 ANTIBODY/ANTIGEN SCREEN WITH REFLEX [...] PANEL, PLASMA STAT 07/08/2025 6:14 PM EDT [place] [facility], E/M 30-74 MINUTES Routine 07/08/2025 5:58 PM EDT documented in this encounter Results * (ABNORMAL) POCT glucose meter (07/09/2025 6:05 AM EDT) POCT Glucose 196(H) 74 - 99 mg/dL 07/09/2025 6:20 AM EDT [facility] Comment:Accuracy of [...] for testing. Comment 07/09/2025 6:20 AM EDT [facility] Transformation Specialist ID Cheyanne Briceño 07/09/2025 6:20 AM EDT [facility]ARE LAB Device ID [id number] 07/09/2025 6:20 AM EDT [facility] Specimen Type POC Arterial 07/09/2025 6:20 AM EDT [facility] Blood Arterial blood specimen / Unknown 07/09/2025 6:05 AM EDT 07/09/2025 6:20 AM EDT Brittany Crawford MD LAB POINT OF CARE TEST DOCKED DEVICE UNSOLICITED RESULTS Final Result Performing Organization Address City/[facility]/ZIP Co de Phone Number [facility] [address] [place] [address] * Phosphorus (07/09/2025 4:57 AM EDT) [facility] Phosphorus, Plasma 4.1 2.5 - 4.5 mg/dL 07/09/2025 5:35 AM EDT [facility] Blood Arterial blood specimen / Unknown Venipuncture / Unknown 07/09/2025 4:57 AM EDT 07/09/2025 5:06 AM EDT Brittany Crawford MD LAB BLOOD ORDERABLES Final Result [facility] [address] [place] [address] * Magnesium, Plasma (07/09/2025 4:57 AM EDT) [facility] Magnesium, Plasma 2.2 1.9 - 2.4 mg/dL 07/09/2025 5:35 AM EDT [facility] Blood Arterial blood specimen / Unknown Venipuncture / Unknown 07/09/2025 4:57 AM EDT 07/09/2025 5:06 AM EDT us Brittany Crawford MD LAB BLOOD ORDERABLES Final Result [facility] [address] [place] [address] * (ABNORMAL) Basic Metabolic Panel, Plasma (07/09/2025 4:57 AM EDT) Glucose, Plasma 235(H) 74 - 99 mg/dL 07/09/2025 5:35 AM EDT [facility] BUN, Plasma 30(H) 7 - 21 mg/dL 07/09/2025 5:35 AM EDT [facility] Creatinine, Plasma 1.58(H) 0.60 - 1.10 mg/dL 07/09/2025 5:35 AM EDT [facility] BUN/Creatinine Ratio 19 07/09/2025 5:35 AM EDT [facility] Sodium, Plasma 136 136 - 145 mmol/L 07/09/2025 5:35 AM EDT [facility] Potassium, Plasma 3.5(L) 3.6 - 4.9 mmol/L 07/09/2025 5:35 AM EDT [facility] Chloride, Plasma 101 97 - 107 mmol/L 07/09/2025 5:35 AM EDT [facility] CO2, Plasma 23 22 - 29 mmol/L 07/09/2025 5:35 AM EDT [facility] Anion Gap 12 6 - 16 mmol/L 07/09/2025 5:35 AM EDT [facility] Total Calcium, Plasma 9.2 8.9 - 10.2 mg/dL 07/09/2025 5:35 AM EDT [facility] eGFRcr 40.0 mL/min/1.7 3m*2 07/09/2025 5:35 AM EDT [facility] Comment:Reported eGFRcr in m L/min/1.73m2 is based the CKD-EPI 2020 equation that does not use a race coefficient. Blood Arterial blood specimen / Unknown Venipuncture / Unknown 07/09/2025 4:57 AM EDT 07/09/2025 5:06 AM EDT us Brittany Crawford MD LAB BLOOD ORDERABLES Final Result [facility] [address] [place] [address] * (ABNORMAL) CBC W/O Differential (07/09/2025 4:57 AM EDT) WBC Count 32.25(H) 3.70 - 10.30 10*3/uL LAB HEMATOLOGY METHOD 07/09/2025 5:15 AM EDT [facility] RBC Count 3.89(L) 3.90 - 5.20 10*6/uL LAB HEMATOLOGY METHOD 07/09/2025 5:15 AM EDT [facility] HGB 11.0(L) 11.2 - 15.7 g/dL LAB HEMATOLOGY METHOD 07/09/2025 5:15 AM EDT [facility] HCT 33.4(L) 34.0 - 45.0 % LAB HEMATOLOGY METHOD 07/09/2025 5:15 AM EDT [facility] Platelet Count 358 155 - 369 10*3/uL LAB HEMATOLOGY METHOD 07/09/2025 5:15 AM EDT [facility] MCV 86 79 - 98 fL LAB HEMATOLOGY METHOD 07/09/2025 5:15 AM EDT [facility] MCH 28.3 26.0 - 32.0 pg LAB HEMATOLOGY METHOD 07/09/2025 5:15 AM EDT [facility] MCHC 32.9 30.7 - 35.5 g/dL LAB HEMATOLOGY METHOD 07/09/2025 5:15 AM EDT [facility] RDW 17.4(H) 11.5 - 14.5 % LAB HEMATOLOGY METHOD 07/09/2025 5:15 AM EDT [facility] MPV 10.0 8.8 - 12.5 fL LAB HEMATOLOGY METHOD 07/09/2025 5:15 AM EDT [facility] nRBC 0.0 <=0.0 per 100 WBCs LAB HEMATOLOGY METHOD 07/09/2025 5:15 AM EDT [facility] Blood Arterial blood specimen / Unknown Venipuncture / Unknown 07/09/2025 4:57 AM EDT 07/09/2025 5:07 AM EDT us Brittany Crawford MD LAB BLOOD ORDERABLES Final Result Performing Organization Address City/[facility]/ZIP Co de Phone Number [facility] [address] [place] [address] * (ABNORMAL) POCT glucose meter (07/09/2025 4:03 AM EDT) [facility] POCT Glucose 232(H) 74 - 99 mg/dL [...] Comment 07/09/2025 4:05 AM EDT [facility] Transformation Specialist ID Cheyanne Briceño 07/09/2025 4:05 AM EDT [facility] LAB Device ID [id number] 07/09/2025 4:05 AM EDT [facility] Specimen Type POC Arterial 07/09/2025 4:05 AM EDT [facility] Blood Arterial blood specimen / Unknown 07/09/2025 4:03 AM EDT 07/09/2025 4:05 AM EDT us Brittany Crawford MD LAB POINT OF CARE TEST DOCKED DEVICE UNSOLICITED RESULTS Final Result Performing Organization Address City/[facility]/ZIP Co de Phone Number [facility] [address] [place] [address] * XR Chest 1 View (07/09/2025 3:42 [...] Yenny Live on 07/09/2025 4:17 AM us Brittany Crawford MD IMG XR PROCEDURES Final Re sult * (ABNORMAL) POCT glucose meter (07/09/2025 2:15 AM EDT) POCT Glucose 272(H) 74 - 99 mg/dL 07/09/2025 2:17 AM EDT [facility] Comment:Accuracy of a glucos e result [...] Comment 07/09/2025 2:17 AM EDT [facility] Transformation Specialist ID Cheyanne Briceño 07/09/2025 2:17 AM EDT [facility] Device ID [id number] 07/09/2025 2:17 AM EDT [facility] Specimen Type POC Arterial 07/09/2025 2:17 AM EDT [facility] Blood Arterial blood specimen / Unknown 07/09/2025 2:15 AM EDT 07/09/2025 2:17 AM EDT us Brittany Crawford MD LAB POINT OF CARE TEST DOCKED DEVICE UNSOLICITED RESULTS Final Result [facility] [address] [place] [address] * (ABNORMAL) Blood gas panel, arterial (07/09/2025 2:11 AM EDT) pH, Arterial 7.25(LL) 7.35 - 7.45 LAB HEMATOLOGY METHOD 07/09/2025 2:23 AM EDT [facility] pCO2, Arterial 56(H) 35 - 48 mmHg LAB HEMATOLOGY METHOD 07/09/2025 2:23 AM EDT [facility] pO2, Arterial 67(L) 83 - 108 mmHg LAB HEMATOLOGY METHOD 07/09/2025 2:23 AM EDT [facility] SO2, Measured, Arterial 91(L) 94 - 98 % LAB HEMATOLOGY METHOD 07/09/2025 2:23 AM EDT [facility] Base Excess, Arterial -2.7(L) -2.0 - 3.0 mmol/L LAB HEMATOLOGY METHOD 07/09/2025 2:23 AM EDT [facility] Bicarbonate, Calculated, Arterial 25 22 - 26 mmol/L LAB HEMATOLOGY METHOD 07/09/2025 2:23 AM EDT [facility] Hematocrit, Whole Blood 31.5(L) 34.0 - 45.0 % LAB HEMATOLOGY METHOD 07/09/2025 2:23 AM EDT [facility] Sodium, Whole Blood 135(L) 136 - 145 mmol/L LAB HEMATOLOGY METHOD 07/09/2025 2:23 AM EDT [facility] Potassium, Whole Blood 3.5(L) 3.6 - 4.9 mmol/L LAB HEMATOLOGY METHOD 07/09/2025 2:23 AM EDT [facility] Chloride, Whole Blood 103 97 - 107 mmol/L LAB HEMATOLOGY METHOD 07/09/2025 2:23 AM EDT [facility] Glucose, Whole Blood 279(H) 74 - 99 mg/dL LAB HEMATOLOGY METHOD 07/09/2025 2:23 AM EDT [facility] Ionized Calcium, Whole Blood 4.9 4.6 - 5.1 mg/dL LAB HEMATOLOGY METHOD 07/09/2025 2:23 AM EDT [facility] Lactate, Arterial, Whole Blood 1.2 0.5 - 1.6 mmol/L LAB HEMATOLOGY METHOD 07/09/2025 2:23 AM EDT [facility] Blood Arterial blood specimen / Unknown Arterial Puncture / Unknown 07/09/2025 2:11 AM EDT 07/09/2025 2:21 AM EDT us Brittany Crawford MD LAB BLOOD ORDERABLES Final Result [facility] [address] [place] [address] * (ABNORMAL) POCT glucose meter (07/09/2025 1:22 [...] Comment 07/09/2025 1:24 AM EDT [facility] Transformation Specialist ID Cheyanne Briceño 07/09/2025 1:24 AM EDT [facility] Device ID [id number] 07/09/2025 1:24 AM EDT [facility] Specimen Type POC Arterial 07/09/2025 1:24 AM EDT [facility] Blood Arterial blood specimen / Unknown 07/09/2025 1:22 AM EDT 07/09/2025 1:24 AM EDT Brittany Crawford MD LAB POINT OF CARE TEST DOCKED DEVICE UNSOLICITED RESULTS Final Result Performing Organization Address City/[facility] Co de Phone Number [facility] [address] [place] [address] * (ABNORMAL) POCT glucose meter (07/09/2025 12:06 AM EDT) [facility] POCT Glucose 311(H) 74 - 99 mg/dL 07/09/2025 12:08 AM EDT [facility] Comment:Accuracy of a glucos e [...] for testing. Comment 07/09/2025 12:08 AM EDT [facility] Transformation Specialist ID Cheyanne Briceño 07/09/2025 12:08 AM EDT [facility] Device ID [id number] 07/09/2025 12:08 AM EDT [facility] Specimen Type POC Arterial 07/09/2025 12:08 AM EDT [facility] Blood Arterial blood specimen / Unknown 07/09/2025 12:06 AM EDT 07/09/2025 12:08 AM EDT Brittany Crawford MD LAB POINT OF CARE TEST DOCKED DEVICE UNSOLICITED RESULTS Final Result Performing Organization Address City/[facility]/ZIP Co de Phone Number [facility] [address] [place] [address] * APTT (07/08/2025 11:53 PM EDT) [facility] aPTT 25 25 - 35 sec LAB COAGULATION METHOD 07/09/2025 12:32 AM EDT [facility] Blood Venous blood specimen / Unknown Venipuncture / Unknown 07/08/2025 11:53 PM EDT 07/08/2025 11:59 PM EDT Brittany Crawford MD LAB BLOOD ORDERABLES Final Result Performing Organization Address City/[facility]/ZIP Co de Phone Number [facility] [address] [place] [address] * (ABNORMAL) Protime-INR (07/08/2025 11:53 PM EDT) Prothrombin Time 15.2(H) 12.0 - 14.3 sec LAB COAGULATION METHOD 07/09/2025 12:32 AM EDT [facility] INR 1.2(H) 0.9 - 1.1 LAB COAGULATION METHOD 07/09/2025 12:32 AM EDT [facility] Blood Venous blood specimen / Unknown Venipuncture / Unknown 07/08/2025 11:53 PM EDT 07/08/2025 11:59 PM EDT Narrative [facility] - 07/09/2025 12:32 AM EDT OPTIMAL INR RANGES FOR PATIENT ON ORAL ANTICOAGULANT THERAPY Prevention of venous thromboembolism INR 2.0 to 3.0 In patients with heart disease: Atrial fibrillation INR 2.0 to 3.0 Valvular heart disease INR 2.0 to 3.0 Tissue heart valves INR 2.0 to 3.0 Mechanical prosthetic valves INR 2.5 to 3.5 Prevention of recurrent IA INR 2.5 to 3.5 us Brittany Crawford MD LAB BLOOD ORDERABLES Final Result Performing Organization Address City/[facility] Co de Phone Number [facility] [address] [place] [address] * Phosphorus, Plasma (07/08/2025 11:52 PM EDT) Phosphorus, Plasma 3.6 2.5 - 4.5 mg/dL 07/09/2025 12:27 AM EDT [facility] Blood Venous blood specimen / Unknown Venipuncture / Unknown 07/08/2025 11:52 PM EDT 07/08/2025 11:59 PM EDT Brittany Crawford MD LAB BLOOD ORDERABLES Final Result [facility] [address] [place] [address] * (ABNORMAL) Magnesium, Plasma (07/08/2025 11:52 PM EDT) Magnesium, Plasma 1.8(L) 1.9 - 2.4 mg/dL 07/09/2025 12:27 AM EDT [facility] Blood Venous blood specimen / Unknown Venipuncture / Unknown 07/08/2025 11:52 PM EDT 07/08/2025 11:59 PM EDT us Brittany Crawford MD LAB BLOOD ORDERABLES Final Result [facility] [address] [place] [address] * (ABNORMAL) Basic Metabolic Panel, Plasma (07/08/2025 11:52 PM EDT) Glucose, Plasma 314(H) 74 - 99 mg/dL 07/09/2025 12:27 AM EDT [facility] BUN, Plasma 32(H) 7 - 21 mg/dL 07/09/2025 12:27 AM EDT [facility] Creatinine, Plasma 1.80(H) 0.60 - 1.10 mg/dL 07/09/2025 12:27 AM EDT [facility] BUN/Creatinine Ratio 18 07/09/2025 12:27 AM EDT [facility] Sodium, Plasma 136 136 - 145 mmol/L 07/09/2025 12:27 AM EDT [facility] Potassium, Plasma 3.6 3.6 - 4.9 mmol/L 07/09/2025 12:27 AM EDT [facility] Chloride, Plasma 100 97 - 107 mmol/L 07/09/2025 12:27 AM EDT [facility] CO2, Plasma 23 22 - 29 mmol/L 07/09/2025 12:27 AM EDT [facility] Anion Gap 13 6 - 16 mmol/L 07/09/2025 12:27 AM EDT [facility] Total Calcium, Plasma 8.9 8.9 - 10.2 mg/dL 07/09/2025 12:27 AM EDT [facility] eGFRcr 34.2 mL/min/1.7 3m*2 07/09/2025 12:27 AM EDT [facility] Comment:Reported eGFRcr in m L/min/1.73m2 is based the CKD-EPI 2020 equation that does not use a race coefficient. Blood Venous blood specimen / Unknown Venipuncture / Unknown 07/08/2025 11:52 PM EDT 07/08/2025 11:59 PM EDT us Brittany Crawford MD LAB BLOOD ORDERABLES Final Result [facility] [address] [place] [address] * (ABNORMAL) CBC W/O Differential (07/08/2025 11:52 PM EDT) WBC Count 22.50(H) 3.70 - 10.30 10*3/uL LAB HEMATOLOGY METHOD 07/09/2025 12:16 AM EDT [facility] RBC Count 3.60(L) 3.90 - 5.20 10*6/uL LAB HEMATOLOGY METHOD 07/09/2025 12:16 AM EDT [facility] HGB 10.0(L) 11.2 - 15.7 g/dL LAB HEMATOLOGY METHOD 07/09/2025 12:16 AM EDT [facility] HCT 30.8(L) 34.0 - 45.0 % LAB HEMATOLOGY METHOD 07/09/2025 12:16 AM EDT [facility] Platelet Count 273 155 - 369 10*3/uL LAB HEMATOLOGY METHOD 07/09/2025 12:16 AM EDT [facility] MCV 86 79 - 98 fL LAB HEMATOLOGY METHOD 07/09/2025 12:16 AM EDT [facility] MCH 27.8 26.0 - 32.0 pg LAB HEMATOLOGY METHOD 07/09/2025 12:16 AM EDT [facility] MCHC 32.5 30.7 - 35.5 g/dL LAB HEMATOLOGY METHOD 07/09/2025 12:16 AM EDT [facility] RDW 16.9(H) 11.5 - 14.5 % LAB HEMATOLOGY METHOD 07/09/2025 12:16 AM EDT [facility] MPV 10.3 8.8 - 12.5 fL LAB HEMATOLOGY METHOD 07/09/2025 12:16 AM EDT [facility] nRBC 0.0 <=0.0 per 100 WBCs LAB HEMATOLOGY METHOD 07/09/2025 12:16 AM EDT [facility] Blood Venous blood specimen / Unknown Venipuncture / Unknown 07/08/2025 11:52 PM EDT 07/08/2025 11:59 PM EDT us Brittany Crawford MD LAB BLOOD ORDERABLES Final Result [facility] [address] [place] [address] * (ABNORMAL) Blood gas, arterial (07/08/2025 11:50 PM EDT) pH, Arterial 7.27(L) 7.35 - 7.45 LAB HEMATOLOGY METHOD 07/09/2025 12:00 AM EDT [facility] pCO2, Arterial 53(H) 35 - 48 mmHg LAB HEMATOLOGY METHOD 07/09/2025 12:00 AM EDT [facility] pO2, Arterial 114(H) 83 - 108 mmHg LAB HEMATOLOGY METHOD 07/09/2025 12:00 AM EDT [facility] SO2, Measured, Arterial 99(H) 94 - 98 % LAB HEMATOLOGY METHOD 07/09/2025 12:00 AM EDT [facility] Base Excess, Arterial -3.1(L) -2.0 - 3.0 mmol/L LAB HEMATOLOGY METHOD 07/09/2025 12:00 AM EDT [facility] Bicarbonate, Calculated, Arterial 24 22 - 26 mmol/L LAB HEMATOLOGY METHOD 07/09/2025 12:00 AM EDT [facility] Hematocrit, Whole Blood 31.0(L) 34.0 - 45.0 % LAB HEMATOLOGY METHOD 07/09/2025 12:00 AM EDT [facility] Sodium, Whole Blood 134(L) 136 - 145 mmol/L LAB HEMATOLOGY METHOD 07/09/2025 12:00 AM EDT [facility] Potassium, Whole Blood 3.5(L) 3.6 - 4.9 mmol/L LAB HEMATOLOGY METHOD 07/09/2025 12:00 AM EDT [facility] Chloride, Whole Blood 101 97 - 107 mmol/L LAB HEMATOLOGY METHOD 07/09/2025 12:00 AM EDT [facility] Glucose, Whole Blood 315(H) 74 - 99 mg/dL LAB HEMATOLOGY METHOD 07/09/2025 12:00 AM EDT [facility] Ionized Calcium, Whole Blood 5.1 4.6 - 5.1 mg/dL LAB HEMATOLOGY METHOD 07/09/2025 12:00 AM EDT [facility] Lactate, Arterial, Whole Blood 1.7(H) 0.5 - 1.6 mmol/L LAB HEMATOLOGY METHOD 07/09/2025 12:00 AM EDT [facility] Blood Arterial blood specimen / Unknown Arterial Puncture / Unknown 07/08/2025 11:50 PM EDT 07/08/2025 11:59 PM EDT Richard Betts [facility] BLOOD ORDERABLES Sarah l Result [facility] [address] [place] [address] * (ABNORMAL) POCT glucose meter (07/08/2025 11:49 PM EDT) [facility] POCT Glucose 316(H) 74 - 99 mg/dL [...] Comment 07/08/2025 11:50 PM EDT [facility]ALTH[facility]ARE LAB Transformation Specialist ID Mary Cotto 07/08/2025 11:50 PM EDT HEALTHCARE LAB Device ID [id number] 07/08/2025 11:50 PM EDT HEALTHCARE LAB Specimen Type POC Arterial 07/08/2025 11:50 PM EDT [facility] Blood Arterial blood specimen / Unknown 07/08/2025 11:49 PM EDT 07/08/2025 11:50 PM EDT Brittany Crawford MD LAB POINT OF CARE TEST DOCKED DEVICE UNSOLICITED RESULTS Final Result [facility] [address] [place] [address] * Transfuse fresh frozen plasma (07/08/2025 10:35 PM EDT) Richard Betts [employer] BLOOD TRANSFUSION ORDERAB LES Final Result * Transfuse RBC (07/08/2025 10:29 PM EDT) Richard Betts CRNA BLOOD TRANSFUSION ORDERAB LES Final Result * (ABNORMAL) Blood gas panel, arterial (07/08/2025 10:08 PM EDT) pH, Arterial 7.28(L) 7.35 - 7.45 LAB HEMATOLOGY METHOD 07/08/2025 10:15 PM EDT [facility] pCO2, Arterial 50(H) 35 - 48 mmHg LAB HEMATOLOGY METHOD 07/08/2025 10:15 PM EDT [facility] pO2, Arterial 121(H) 83 - 108 mmHg LAB HEMATOLOGY METHOD 07/08/2025 10:15 PM EDT [facility] SO2, Measured, Arterial 99(H) 94 - 98 % LAB HEMATOLOGY METHOD 07/08/2025 10:15 PM EDT [facility] Base Excess, Arterial -3.6(L) -2.0 - 3.0 mmol/L LAB HEMATOLOGY METHOD 07/08/2025 10:15 PM EDT [facility] Bicarbonate, Calculated, Arterial 23 22 - 26 mmol/L LAB HEMATOLOGY METHOD 07/08/2025 10:15 PM EDT [facility] Hematocrit, Whole Blood 29.9(L) 34.0 - 45.0 % LAB HEMATOLOGY METHOD 07/08/2025 10:15 PM EDT [facility] Sodium, Whole Blood 133(L) 136 - 145 mmol/L LAB HEMATOLOGY METHOD 07/08/2025 10:15 PM EDT [facility] Potassium, Whole Blood 3.5(L) 3.6 - 4.9 mmol/L LAB HEMATOLOGY METHOD 07/08/2025 10:15 PM EDT [facility] Chloride, Whole Blood 101 97 - 107 mmol/L LAB HEMATOLOGY METHOD 07/08/2025 10:15 PM EDT [facility] Glucose, Whole Blood 351(H) 74 - 99 mg/dL LAB HEMATOLOGY METHOD 07/08/2025 10:15 PM EDT [facility] Ionized Calcium, Whole Blood 4.5(L) 4.6 - 5.1 mg/dL LAB HEMATOLOGY METHOD 07/08/2025 10:15 PM EDT [facility] Lactate, Arterial, Whole Blood 2.1(H) 0.5 - 1.6 mmol/L LAB HEMATOLOGY METHOD 07/08/2025 10:15 PM EDT [facility] Blood Arterial blood specimen / Unknown 07/08/2025 10:08 PM EDT 07/08/2025 10:14 PM EDT Comment:Pre-op diagnosis: Necrotizing fasciitis (CMS/HCC) [M72.6] us Brittany Crawford MD LAB BLOOD ORDERABLES Final Result [facility] [address] [place] [address] * Transfuse fresh frozen plasma (07/08/2025 10:04 PM EDT) Richard N Yongbang [employer] BLOOD TRANSFUSION ORDERAB LES Final Result * Transfuse fresh frozen plasma: 1 Units (07/08/2025 10:04 PM EDT) us Richard N Yongbang [employer]NICIAN BLOOD TRANSFUSION ORDERAB LES Final Result * Transfuse RBC (07/08/2025 9:41 PM EDT) us Richard N Yongbang [employer] TECHNICIAN BLOOD TRANSFUSION ORDERAB LES Final Result * Transfuse RBC: 1 Units (07/08/2025 9:41 PM EDT) us Richard N Yongbang [employer] BLOOD TRANSFUSION ORDERAB LES Final Result * Prepare Fresh Frozen Plasma: 2 Units (07/08/2025 9:24 PM EDT) Product Code R2840N27 CH BLOO D BANK Dispense Status Transfused CH BLOOD BANK Blood Expiration Date [id number] BLOOD BANK Unit Number [id number] CH B LOOD BANK Product Blood Type 5100 BLOOD BANK Blood Type O+ CH BLOOD BANK Product Code [id number] CH BLOO D BANK Dispense Status Transfused CH BLOOD BANK Blood Expiration Date [id number] BLOOD BANK Unit Number [id number] CH B LOOD BANK Product Blood Type 5100 BLOOD BANK Blood Type O+ CH BLOOD BANK Blood Venous blood specimen / Unknown Richard Betts CRNA BLOOD BANK PRODUCT ORDERA BLES Final Result Performing Organization Address [facility] de Phone Number BLOOD BANK [address] [place] [address], * Prepare Leukocyte Reduced RBC: 2 Units (07/08/2025 9:23 PM EDT) Product Code [id number] BLOO D BANK Dispense Status Transfused BLOOD BANK Blood Expiration Date [id number] BLOOD BANK Unit Number [id number] CH B LOOD BANK Product Blood Type 5100 BLOOD BANK Blood Type O+ CH BLOOD BANK Crossmatch Compatible BLOOD BANK Product Code [id number] BLOO D BANK Dispense Status Transfused BLOOD BANK Blood Expiration Date [id number] BLOOD BANK Unit Number [id number] CH B LOOD BANK Product Blood Type 5100 BLOOD BANK Blood Type O+ BLOOD BANK Crossmatch Compatible BLOOD BANK Other Richard Betts CRNA BLOOD BANK PRODUCT ORDERA BLES Final Result Performing Organization Address City/[facility] Co de Phone Number BLOOD BANK [address] [place] [address], * (ABNORMAL) POCT arterial blood gas [place] (07/08/2025 8:51 PM EDT) pH, Arterial 7.28(L) 7.35 - 7.45 07/08/2025 8:53 PM EDT [facility] pCO2, Arterial 53(H) 35 - 48 mm Hg 07/08/2025 8:53 PM EDT [facility] pO2, Arterial 152(H) 83 - 108 mm Hg 07/08/2025 8:53 PM T [facility] SO2, Arterial 99(H) 94 - 98 % 07/08/2025 8:53 PM EDT [facility] Base Excess, Arterial -2.3(L) -2 - 3 mmol/L 07/08/2025 8:53 PM T [facility] HCO3, Arterial 24.9 22 - 26 mmol/L 07/08/2025 8:53 PM EDT [facility] Total Hemoglobin, Arterial, Whole Blood 10.9(L) 11.2 - 15.7 g/dL 07/08/2025 8:53 PM [facility] Hematocrit, Arterial 33.0(L) 34.0 - 45.0 % 07/08/2025 8:53 PM T [facility] Sodium, Arterial 131(L) 136 - 145 mmol/L 07/08/2025 8:53 PM [facility] Potassium, Arterial 3.8 3.6 - 4.9 mmol/L 07/08/2025 8:53 PM [facility] Chloride, Whole Blood 98 97 - 107 mmol/L 07/08/2025 8:53 PM [facility] Glucose, Arterial 418(H) 74 - 99 mg/dL 07/08/2025 8:53 PM [facility] Ionized Calcium, Arterial 4.9 4.6 - 5.1 mg/dL 07/08/2025 8:53 PM [facility] Lactate, Arterial 1.6 0.5 - 1.6 mmol/L 07/08/2025 8:53 PM [facility] Body Temperature 37.0 Celsius 07/08/2025 8:53 PM [facility] pH, Temp Corrected, Arterial 7.28(L) 7.35 - 7.45 07/08[facility]25 [facility] p[facility], Temp Corrected, Arterial 53(H) 35 - 48 mm Hg 07/08/2025 8:53 PM EDT [facility] pO2, Temp Corrected, Arterial 152(H) 83 - 108 mm Hg 07/08/2025 8:53 PM EDT [facility] Transformation Specialist ID Yadi Goel 07/08/2025 8:53 PM EDT [facility] Blood, Arterial Whole blood specimen / Unknown 07/08/2025 8:51 PM EDT 07/08/2025 8:53 PM EDT Brittany Crawford MD LAB POINT OF CARE TEST DOCKED DEVICE UNSOLICITED RESULTS Final Result Performing Organization Address City/[facility]/ZIP Co de Phone Number [facility] [address] [place] [address] * ED HIV 1/2 Antibody/Antigen Screen w/Reflex to HIV 1/2 Differentiation (07/08/2025 6:14 PM EDT) [facility] HIV 1 & 2 Antibody/Antigen Screen Non Reactive Non Reactive 07/08/2025 7:12 PM EDT [facility] Comment:Screening for HIV 1 & 2 antibodies, and P24 antigen is NONREACTIVE. No confirmatory testing is required. Blood Venous blood specimen / Unknown Venipuncture / Unknown 07/08/2025 6:14 PM EDT 07/08/2025 6:30 PM EDT Kyle Mckinney MD LAB BLOOD ORDERABLES Fi nal Result Performing Organization Address [facility] Co de Phone Number [facility] [address] [place] [address] * Hepatitis C Antibody - ED (07/08/2025 6:14 PM EDT) [facility] Hepatitis C Antibody Negative Negative 07/08/2025 7:12 PM EDT [facility] Blood Venous blood specimen / Unknown Venipuncture / Unknown 07/08/2025 6:14 PM EDT 07/08/2025 6:30 PM EDT Kyle Mckinney MD LAB BLOOD ORDERABLES Fi nal Result Performing Organization Address City/[facility]/ZIP Co de Phone Number [facility] [address] [place] [address] * (ABNORMAL) C-Reactive protein (07/08/2025 6:14 PM EDT) Pathologist [facility] CRP, Plasma 462.2(H) <=8.0 mg/L 07/08/2025 7:18 PM EDT [facility] Blood Venous blood specimen / Unknown Venipuncture / Unknown 07/08/2025 6:14 PM EDT 07/08/2025 6:23 PM EDT Narrative [facility] - 07/08/2025 7:18 PM EDT This CRP test is appropriate for assessment of infection, systemic inflammation and/or tissue injury. To assess cardiovascular disease risk order high sensitivity CRP (CRPH). Kyle Mckinney MD LAB BLOOD ORDERABLES Fi nal Result Performing Organization Address City/[facility]/ZIP Co de Phone Number [facility] [address] [place] [address] * (ABNORMAL) Lactic acid, venous (07/08/2025 6:14 PM EDT) [facility] Lactate, Venous, Whole Blood 2.6(H) 0.5 - 2.2 mmol/L LAB HEMATOLOGY METHOD 07/08/2025 6:29 PM EDT [facility] Blood Venous blood specimen / Unknown Venipuncture / Unknown 07/08/2025 6:14 PM EDT 07/08/2025 6:23 PM EDT Kyle Mckinney MD LAB BLOOD ORDERABLES Fi nal Result [facility] [address] [place] [address] * Type and screen (07/08/2025 6:14 PM EDT) ABO/Rh O Positive 07/08/2025 6:10 PM EDT BLOOD BANK Antibody Screen Negative 07/08/2025 6:10 PM EDT BLOOD BANK Specimen Expiration 07/11/2025 23:59 07/08/2025 6:10 PM EDT BLOOD BANK Blood Venous blood specimen / Unknown Venipuncture / Unknown 07/08/2025 6:14 PM EDT 07/08/2025 6:18 PM EDT Kyle Mckinney MD LAB BLOOD BANK TEST ORD ERABLES Final Result Performing Organization Address [facility] Co de Phone Number BLOOD BANK [address] * (ABNORMAL) PT-INR (07/08/2025 6:14 PM EDT) Prothrombin Time 15.3(H) 12.0 - 14.3 sec 07/08/2025 6:56 PM EDT [facility] INR 1.2(H) 0.9 - 1.1 07/08/2025 6:56 PM EDT [facility] Blood Venous blood specimen / Unknown Venipuncture / Unknown 07/08/2025 6:14 PM EDT 07/08/2025 6:23 PM EDT Narrative [facility] - 07/08/2025 6:56 PM EDT OPTIMAL INR RANGES FOR PATIENT ON ORAL ANTICOAGULANT THERAPY Prevention of venous thromboembolism INR 2.0 to 3.0 In patients with heart disease: Atrial fibrillation INR 2.0 to 3.0 Valvular heart disease INR 2.0 to 3.0 Tissue heart valves INR 2.0 to 3.0 Mechanical prosthetic valves INR 2.5 to 3.5 Prevention of recurrent IA INR 2.5 to 3.5 Kyle Mckinney MD LAB BLOOD ORDERABLES Fi nal Result Performing Organization Address City/[facility]/ZIP Co de Phone Number [facility] [address] [place] [address] * (ABNORMAL) CBC w/diff (07/08/2025 6:14 PM EDT) WBC Count 26.15(H) 3.70 - 10.30 10*3/uL LAB HEMATOLOGY METHOD 07/08/2025 9:04 PM EDT [facility] RBC Count 3.97 3.90 - 5.20 10*6/uL LAB HEMATOLOGY METHOD 07/08/2025 9:04 PM EDT [facility] HGB 10.9(L) 11.2 - 15.7 g/dL LAB HEMATOLOGY METHOD 07/08/2025 9:04 PM EDT [facility] HCT 33.6(L) 34.0 - 45.0 % LAB HEMATOLOGY METHOD 07/08/2025 9:04 PM EDT [facility] Platelet Count 329 155 - 369 10*3/uL LAB HEMATOLOGY METHOD 07/08/2025 9:04 PM EDT [facility] MCV 85 79 - 98 fL LAB HEMATOLOGY METHOD 07/08/2025 9:04 PM EDT [facility] MCH 27.5 26.0 - 32.0 pg LAB HEMATOLOGY METHOD 07/08/2025 9:04 PM EDT [facility] MCHC 32.4 30.7 - 35.5 g/dL LAB HEMATOLOGY METHOD 07/08/2025 9:04 PM EDT [facility] RDW 17.3(H) 11.5 - 14.5 % LAB HEMATOLOGY METHOD 07/08/2025 9:04 PM EDT [facility] MPV 10.1 8.8 - 12.5 fL LAB HEMATOLOGY METHOD 07/08/2025 9:04 PM EDT [facility] nRBC 0.0 <=0.0 per 100 WBCs LAB HEMATOLOGY METHOD 07/08/2025 9:04 PM EDT [facility] Differential Type Automated LAB HEMATOLOGY METHOD 07/08/2025 9:04 PM EDT [facility] Neutrophils % 91 % LAB HEMATOLOGY METHOD 07/08/2025 9:04 PM EDT [facility] Lymphocytes % 4 % LAB HEMATOLOGY METHOD 07/08/2025 9:04 PM EDT [facility] Monocytes % 4 % LAB HEMATOLOGY METHOD 07/08/2025 9:04 PM EDT [facility] Eosinophils % 0 % LAB HEMATOLOGY METHOD 07/08/2025 9:04 PM EDT [facility] Basophils % 0 % LAB HEMATOLOGY METHOD 07/08/2025 9:04 PM EDT [facility] Immature Granulocytes % 1 % LAB HEMATOLOGY METHOD 07/08/2025 9:04 PM EDT [facility] Neutrophils Absolute 23.61(H) 1.60 - 6.10 10*3/uL LAB HEMATOLOGY METHOD 07/08/2025 9:04 PM EDT [facility] Lymphocytes Absolute 1.15(L) 1.20 - 3.90 10*3/uL LAB HEMATOLOGY METHOD 07/08/2025 9:04 PM EDT [facility] Monocytes Absolute 0.98(H) 0.30 - 0.90 10*3/uL LAB HEMATOLOGY METHOD 07/08/2025 9:04 PM EDT [facility] Eosinophils Absolute 0.04 0.00 - 0.50 10*3/uL LAB HEMATOLOGY METHOD 07/08/2025 9:04 PM EDT [facility] Basophils Absolute 0.09 0.00 - 0.10 10*3/uL LAB HEMATOLOGY METHOD 07/08/2025 9:04 PM EDT [facility] Immature Granulocytes Absolute 0.25(H) 0.00 - 0.06 10*3/uL LAB HEMATOLOGY METHOD 07/08/2025 9:04 PM EDT [facility] Blood Venous blood specimen / Unknown Venipuncture / Unknown 07/08/2025 6:14 PM EDT 07/08/2025 6:23 PM EDT Narrative [facility] - 07/08/2025 9:04 PM EDT Therapeutic decision making should be based on absolute values, rather than percentages. us Kyle Mckinney MD LAB BLOOD ORDERABLES Fi nal Result [facility] [address] [place] [address] * (ABNORMAL) CMP (07/08/2025 6:14 PM EDT) Glucose, Plasma 411(H) 74 - 99 mg/dL 07/08/2025 7:18 PM EDT [facility] BUN, Plasma 33(H) 7 - 21 mg/dL 07/08/2025 7:18 PM EDT [facility] Creatinine, Plasma 1.99(H) 0.60 - 1.10 mg/dL 07/08/2025 7:18 PM EDT [facility] BUN/Creatinine Ratio 17 07/08/2025 7:18 PM EDT [facility] Sodium, Plasma 131(L) 136 - 145 mmol/L 07/08/2025 7:18 PM EDT [facility] Potassium, Plasma 4.0 3.6 - 4.9 mmol/L 07/08/2025 7:18 PM EDT [facility] Chloride, Plasma 93(L) 97 - 107 mmol/L 07/08/2025 7:18 PM EDT [facility] CO2, Plasma 22 22 - 29 mmol/L 07/08/2025 7:18 PM EDT [facility] Anion Gap 16 6 - 16 mmol/L 07/08/2025 7:18 PM EDT [facility] Total Calcium, Plasma 9.3 8.9 - 10.2 mg/dL 07/08/2025 7:18 PM EDT [facility] Total Protein 6.0(L) 6.3 - 7.9 g/dL 07/08/2025 7:18 PM EDT [facility] Albumin, Plasma 2.6(L) 3.5 - 5.2 g/dL 07/08/2025 7:18 PM EDT [facility] AST, Plasma 16 10 - 35 U/L 07/08/2025 7:18 PM EDT [facility] ALT, Plasma 15 10 - 35 U/L 07/08/2025 7:18 PM EDT [facility] Alkaline Phosphatase, Plasma 165(H) 35 - 104 U/L 07/08/2025 7:18 PM EDT [facility] Total Bilirubin, Plasma 0.4 0.2 - 1.1 mg/dL 07/08/2025 7:18 PM EDT [facility] eGFRcr 30.3 mL/min/1.7 3m*2 07/08/2025 7:18 PM EDT [facility] Comment:Reported eGFRcr in m L/min/1.73m2 is based the CKD-EPI 2020 equation that does not use a race coefficient. Blood Venous blood specimen / Unknown Venipuncture / Unknown 07/08/2025 6:14 PM EDT 07/08/2025 6:23 PM EDT us Kyle Mckinney MD LAB BLOOD ORDERABLES Fi nal Result [facility] [address] [place] [address] * [place] CRITICAL CARE, E/M 30-74 MINUTES (07/08/2025 5:58 PM EDT) Narrative Kyle Mckinney MD - 07/08/2025 5:58 PM EDT Kyle Mckinney MD 07/08/2025 9:14 PM Critical Care Performed by: Kyle Mckinney MD Authorized by: Kyle Mckinney MD Critical care provider statement: Critical care [...] the findings and plan as documented. 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) DM (diabetes mellitus) (CMS/HCC) Type II or unspecified type diabetes mellitus without mention of complication, not stated as uncontrolled Hidradenitis Smoker Tobacco use disorder documented in this encounter Admitting Diagnoses Diagnosis Necrotizing fasciitis (CMS/HCC) Necrotizing fasciitis documented in this encounter Administered Medications Active Administered Medications - up to 3 most [...] 12:26 AM EDT 1,000 mg 400 mL/hr albuterol (Proventil) (2.5 MG/3ML) 0.083% nebulizer solution 2.5 mg 2.5 mg, Nebulization, Every 6 hours PRN, Starting on Tue07/09/25 at 0102, Until Discontinued, Routine, wheezing Given 07/09/2025 1:06 AM EDT 2.5 mg cefepime (Maxipime) 2 g in sodium chloride 0.9% 100 mL IVPB (vial adapter required) 2 g, Intravenous, Every 8 hours, First dose on Tue07/08/25 at 2330, Until Discontinued, Routine New Bag 07/09/2025 12:26 AM EDT 2 g 36 .7 mL/hr New Bag 07/08/2025 9:09 PM EDT 2 g dextrose 10 % (D10W) bolus 125 mL 125 mL, Intravenous, Every 15 min PRN, Starting on Tue07/08/25 at 2052, Until Discontinued, Administer over 15 Minutes, Routine, low blood sugar BG 51-89 mg/dL dextrose 10 % (D10W) bolus 250 mL 250 mL, Intravenous, Every 15 min PRN, Starting on Tue07/08/25 at 2052, Until Discontinued, Administer over 15 Minutes, Routine, PRN low blood sugar BG =/<50 mg/dL famotidine PF (Pepcid) injection 20 mg 20 mg, Intravenous, Every 12 hours, First dose on Tue07/09/25 at 0100, Until Discontinued, Routine Given 07/09/2025 12:34 AM EDT 20 mg glucagon (human recombinant) injection 1 mg 1 mg, Intramuscular, Every 15 min PRN, Starting on Tue07/08/25 at 2052, Until Discontinued, Routine, low blood sugar per Hypoglycemia Prevention and Treatment protocol glucose (Glutose) 40 % oral gel 15-30 grams of glucose 15-30 grams of glucose, Sublingual, Every 15 min PRN, Starting on Tue07/08/25 at 2052, Until Discontinued, Routine, low blood sugar, per Hypoglycemia Prevention and Treatment protocol HYDROmorphone (Dilaudid) bolus from bag 0.25 mg, Intravenous, Every 10 min PRN, Starting on Tue07/08/25 at 2326, Until Discontinued, Administer over 2 Minutes, Routine, moderate pain, CPOT (3-4) HYDROmorphone (Dilaudid) bolus from bag 0.5 mg, Intravenous, Every 10 min PRN, Starting on Tue07/08/25 at 2326, Until Discontinued, Administer over 2 Minutes, Routine, CPOT (5-8) hydromorphone 20 mg in NS 100 mL infusion (200 mcg/mL) 0.25-2 mg/hr (1.25-10 mL/hr), 0.2 mg/mL, Intravenous, Titrated, Starting on Tue07/09/25 at 0015, Until Discontinued, Routine New Bag 07/09/2025 12:32 AM EDT 0.25 mg/hr 1.25 mL/hr insulin regular (HumuLIN, NovoLIN) bolus from bag 4 Units 4 Units, Intravenous, Every 2 hour PRN, Starting on Tue07/08/25 at 2053, Until Discontinued, Routine, if FSBS => 301 insulin regular in sodium chloride 0.9 % 1 UNIT/ML infusion (Standard Insulin Protocol) 0.5-30 Units/hr (0.5-30 mL/hr), Intravenous, Titrated, Starting on Tue07/08/25 at 2145, Until Discontinued, Routine Rate Change - Dual Sign 07/09/2025 6:07 AM EDT 12 Units/hr 12 mL/hr Rate Change - Dual Sign 07/09/2025 4:06 AM EDT 11 Units/hr 11 mL/hr Rate Change - Dual Sign 07/09/2025 2:16 AM EDT 9 Units/hr 9 mL/hr ipratropium-albuterol (Duo-Neb) 0.5-2.5 mg/3 mL nebulizer solution 3 mL 3 mL, Nebulization, Every 6 hours RT, First dose on Tue07/09/25 at 0300, Until Discontinued, Routine Given 07/09/2025 3:09 AM EDT 3 mL linezolid (Zyvox) injection 600 mg 600 mg, Intravenous, Every 12 hours, First dose on Tue07/08/25 at 1815, Until Discontinued, Administer over 30 Minutes, Routine New Bag 07/09/2025 6:15 AM EDT 600 m g 600 mL/hr New Bag 07/08/2025 6:20 PM EDT 600 mg 600 mL/hr metroNIDAZOLE (Flagyl) IVPB 500 mg 500 mg, Intravenous, Every 8 hours, First dose on Tue07/08/25 at 2300, Until Discontinued, Routine New Bag 07/09/2025 12:55 AM EDT 500 mg 100 mL/hr New Bag 07/08/2025 9:10 PM EDT 500 mg Continued from OR 07/08/2025 9:05 PM EDT 100 mL /hr mupirocin (Bactroban) 2 % ointment 1 Application Each Nostril, 2 times daily, 10 doses, First dose on Tue07/09/25 at 0030, Last dose on Tue07/13/25 at 0900, Routine Given 07/09/2025 12:34 AM EDT 1 Application norepinephrine 8 mg/250 mL (0.032 mg/mL) infusion 0.02-0.4 mcg/kg/min 177 kg (6.6375-132.75 mL/hr, rounded to 6.64-132.75 mL/hr), 0.032 mg/mL, Intravenous, Titrated, Starting on 07/08/25 at 1815, Until Discontinued, STAT New Bag 07/09/2025 5:22 AM EDT 0.14 mcg/kg/min 46.5 mL/hr Rate/Dose Change 07/09/2025 4:47 AM EDT 0.14 mcg/kg/min 46 .5 mL/hr Rate/Dose Change 07/09/2025 3:50 AM EDT 0.16 mcg/kg/min 53 .1 mL/hr propofol (Diprivan) infusion 10 mg/mL 10-50 mcg/kg/min 177 kg (10.62-53.1 mL/hr), Intravenous, Titrated, Starting on Tue07/09/25 at 0015, Until Discontinued, Routine New Bag 07/09/2025 3:00 AM EDT 20 mcg/kg/min 21.2 mL/hr Rate Change - Dual Sign 07/09/2025 2:45 AM EDT 15 mcg/kg/m in 15.93 mL/hr New Bag 07/09/2025 2:28 AM EDT 20 mcg/kg/min 21.2 mL/hr sodium chloride 0.9 % flush 10 mL 10 mL, Intravenous, Every 12 hours, First dose on Tue07/09/25 at 0030, Until Discontinued, Routine Given 07/09/2025 12:35 AM EDT 10 mL sodium chloride 0.9 % flush 10 mL 10 mL, Intravenous, Every 1 hour PRN, Starting on Tue07/08/25 at 2334, Until Discontinued, Routine, Flush Before and After EVERY dose of medication. sodium chloride 0.9 % flush 20 mL 20 mL, Intravenous, Every 1 hour PRN, Starting on Tue07/08/25 at 2334, Until Discontinued, Routine, After blood draws and if any blood seen in tubing. Inactive Administered Medications - up to 3 most recent administrations Medication Order MAR Action Action Date Dose Rate Site insulin regular (HumuLIN, NovoLIN) bolus from bag 1-10 Units 1-10 Units, Intravenous, Once, 1 dose, On Tue07/08/25 at 2145, Routine Bolus from Bag 07/09/2025 12:17 AM EDT 3 Units lactated Ringer's bolus 1,000 mL 1,000 mL, Intravenous, Once, 1 dose, On Tue07/09/25 at 0630, Administer over 30 Minutes, Routine New Bag 07/09/2025 6:02 AM EDT 1,000 mL 2000 mL/hr magnesium sulfate IVPB 2 g 2 g, Intravenous, Once, 1 dose, On Tue07/09/25 at 0130, Routine, Recovery(Phase II-Outpatient)/On Unit(Inpatient) New Bag 07/09/2025 2:08 AM EDT 2 g 25 mL/hr potassium chloride IVPB 10 mEq 10 mEq, Intravenous, Every 1 hour, 2 doses, First dose on Tue07/09/25 at 0330, Last dose on Tue07/09/25 at 0430, Routine, Recovery(Phase II-Outpatient)/On Unit(Inpatient)Indication s:Hypokalemia New Bag 07/09/2025 4:55 AM EDT 10 mEq 100 mL/hr New Bag 07/09/2025 3:52 AM EDT 10 mEq 100 mL/hr documented in this encounter Active and Recently Administered Medications Times are shown in EDT. Scheduled Medication Order 07/07/2025 07/08/2025 07/09/2025 acetaminophen (Ofirmev) injection 1,000 mg 1,000 mg, Intravenous, Every 6 hours, 28 doses, First dose on Tue07/09/25 at 0045, Last dose on Tue07/15/25 at 1845, Routine 0026 (New Bag - Prov ider: Cheyanne Briceño RN)[id number] (New Bag - Provider: Cheyanne Briceño RN)1245 (Due)1845 (Due) cefepime (Maxipime) 2 g in sodium chloride 0.9% 100 mL IVPB (vial adapter required) 2 g, Intravenous, Every 8 hours, First dose on Tue07/08/25 at 2330, Until Discontinued, Routine 2109 (New Bag - Provider: Richard Betts CRNA) 0026 (New Bag - Provider: Cheyanne Briceño RN)0730 (Due)1530 (Due)2330 (Due) famotidine PF (Pepcid) injection 20 mg 20 mg, Intravenous, Every 12 hours, First dose on Tue07/09/25 at 0100, Until Discontinued, Routine 0034 (Given - Provid er: Cheyanne Briceño RN)1300 (Due) insulin regular (HumuLIN, NovoLIN) bolus from bag 1-10 Units (COMPLETED) 1-10 Units, Intravenous, Once, 1 dose, On Tue07/08/25 at 2145, Routine 0017 (Bolus from Bag - Provider: Cheyanne Briceño RN - Comment: bg 311, bolus dose once on unit from or) ipratropium-albuterol (Duo-Neb) 0.5-2.5 mg/3 mL nebulizer solution 3 mL 3 mL, Nebulization, Every 6 hours RT, First dose on Tue07/09/25 at 0300, Until Discontinued, Routine 0309 (Given - Provid er: Lexx Emmanuel)0900 (Due)1500 (Due)2100 (Due) lactated Ringer's bolus 1,000 mL 1,000 mL, Intravenous, Once, 1 dose, On Tue07/09/25 at 0630, Administer over 30 Minutes, Routine 0602 (New Bag - Prov ider: Cheyanne Briceño RN) linezolid (Zyvox) injection 600 mg 600 mg, Intravenous, Every 12 hours, First dose on Tue07/08/25 at 1815, Until Discontinued, Administer over 30 Minutes, Routine 1820 (New Bag - Provider: Kadi Bustamante RN)1907 (Stopped - Provider: Aparna Live RN) 0615 (New Bag - Provider: Cheyanne Briceño RN)1815 (Due) magnesium sulfate IVPB 2 g (COMPLETED) 2 g, Intravenous, Once, 1 dose, On Tue07/09/25 at 0130, Routine, Recovery(Phase II-Outpatient)/On Unit(Inpatient) 0208 (New Bag - Prov ider: Cheyanne Briceño RN) metroNIDAZOLE (Flagyl) IVPB 500 mg 500 mg, Intravenous, Every 8 hours, First dose on 07/08/25 at 2300, Until Discontinued, Routine 210 (Continued from OR - Provider: Richard Betts CRNA)211 (New Bag - Provider: Richard Betts CRNA) 005 (New Bag - Provider: Cheyanne Briceño RN - Comment: rescheduled by pharmacy)0830 (Due - Provider: Jonah Barnard PharmD)1630 (Due - Provider: Jonah Barnard PharmD) mupirocin (Bactroban) 2 % ointment 1 Application Each Nostril, 2 times daily, 10 doses, First dose on Tue07/09/25 at 0030, Last dose on Tue07/13/25 at 0900, Routine 0034 (Given - Provid er: Cheyanne Briceño RN)0900 (Due)2100 (Due) potassium chloride IVPB 10 mEq (COMPLETED) 10 mEq, Intravenous, Every 1 hour, 2 doses, First dose on Tue07/09/25 at 0330, Last dose on Tue07/09/25 at 0430, Routine, Recovery(Phase II-Outpatient)/On Unit(Inpatient) 0352 (New Bag - Prov ider: Cheyanne Briceño RN)0455 (New Bag - Provider: Cheyanne Briceño RN) sodium chloride 0.9 % flush 10 mL 10 mL, Intravenous, Every 12 hours, First dose on Tue07/09/25 at 0030, Until Discontinued, Routine 0035 (Given - Provid er: Cheyanne Briceño RN)1230 (Due) Continuous Medication Order 07/07/2025 07/08/2025 07/09/2025 hydromorphone 20 mg in NS 100 mL infusion (200 mcg/mL) 0.25-2 mg/hr (1.25-10 mL/hr), 0.2 mg/mL, Intravenous, Titrated, Starting on Tue07/09/25 at 0015, Until Discontinued, Routine 0032 (New Bag - Provider: Cheyanne Briceño RN) insulin regular in sodium chloride 0.9 % 1 UNIT/ML infusion (Standard Insulin Protocol) 0.5-30 Units/hr (0.5-30 mL/hr), Intravenous, Titrated, Starting on Tue07/08/25 at 2145, Until Discontinued, Routine 2057 (New Bag - Provider: Richard Betts CRNA)233 (Continued from OR - Provider: Cheyanne Briceño RN) 0017 (New Bag - Provider: Cheyanne Briceño RN - Comment: bg 311. cont. from or increaase titration pre jan)0216 (Rate Change - Dual Sign - Provider: Cheyanne Briceño RN - Comment: BG 272)0406 (Rate Change - Dual Sign - Provider: Cheyanne Briceño RN - Comment: Bg 232)0607 (Rate Change - Dual Sign - Provider: Cheyanne Briceño RN - Comment: BG 196.) norepinephrine 8 mg/250 mL (0.032 mg/mL) infusion 0.02-0.4 mcg/kg/min 177 kg (6.6375-132.75 mL/hr, rounded to 6.64-132.75 mL/hr), 0.032 mg/mL, Intravenous, Titrated, Starting on Tue07/08/25 at 1815, Until Discontinued, STAT 181 (New Bag - Provider: Faviola Vann, PharmD)2008 (Continued by Anesthesia - Provider: Richard Betts CRNA)2030 (Rate/Dose Change - Provider: Richard Betts CRNA)211 (Rate/Dose Change - Provider: Richard Betts CRNA)212 (Rate/Dose Change - Provider: Richard Betts CRNA)213 (Rate/Dose Change - Provider: Richard Betts CRNA)2248 (Rate/Dose Change - Provider: Richard Betts CRNA)2334 (Continued from OR - Provider: Cheyanne Briceño RN) 0007 (Rate/Dose Change - Provider: Cheyanne Briceño RN)0017 (Rate/Dose Change - Provider: Cheyanne Briceño RN)0030 (Rate/Dose Change - Provider: Cheyanne Briceño RN)0045 (Rate/Dose Change - Provider: Cheyanne Briceño RN)0100 (Stopped - Provider: Cheyanne Briceño RN)0226 (Restarted - Provider: Cheyanne Briceño RN)0231 (Rate/Dose Change - Provider: Cheyanne Briceño RN)0239 (Rate/Dose Change - Provider: Cheyanne Briceño RN)0244 (Rate/Dose Change - Provider: Cheyanne Briceño RN)0249 (Rate/Dose Change - Provider: Cheyanne Briceño RN)0300 (Rate/Dose Change - Provider: Cheyanne Briceño RN)0319 (Rate/Dose Change - Provider: Mary Cotto, RN)0326 (Rate/Dose Change - Provider: Sherrill Marie, NAHID)0350 (Rate/Dose Change - Provider: Cheyanne Briceño RN)0447 (Rate/Dose Change - Provider: Cheyanne Briceño RN)0522 (New Bag - Provider: Cheyanne Briceño RN) propofol (Diprivan) infusion 10 mg/mL 10-50 mcg/kg/min 177 kg (10.62-53.1 mL/hr), Intravenous, Titrated, Starting on Tue07/09/25 at 0015, Until Discontinued, Routine 2334 (Continued from OR - Provider: Cheyanne Briceño RN) 0030 (Rate Change - Dual Sign - Provider: Cheyanne Briceño RN)0100 (New Bag - Provider: Cheyanne Briceño RN)0228 (New Bag - Provider: Cheyanne Briceño RN)0245 (Rate Change - Dual Sign - Provider: Cheyanne Briceño RN)0300 (New Bag - Provider: Cheyanne Briceño RN) PRN Medication Order 07/07/2025 07/08/2025 07/09/2025 albuterol (Proventil) (2.5 MG/3ML) 0.083% nebulizer solution 2.5 mg 2.5 mg, Nebulization, Every 6 hours PRN, Starting on Tue07/09/25 at 0102, Until Discontinued, Routine, wheezing 0106 (Given - Provid er: Lexx Emmanuel) dextrose 10 % (D10W) bolus 125 mL(Linked Group 1) 125 mL, Intravenous, Every 15 min PRN, Starting on Tue07/08/25 at 2053, Until Discontinued, Administer over 15 Minutes, Routine, low blood sugar BG 51-89 mg/dL dextrose 10 % (D10W) bolus 250 mL(Linked Group 1) 250 mL, Intravenous, Every 15 min PRN, Starting on Tue07/08/25 at 3, Until Discontinued, Administer over 15 Minutes, Routine, PRN low blood sugar BG =/<50 mg/dL glucagon (human recombinant) injection 1 mg(Linked Group 1) 1 mg, Intramuscular, Every 15 min PRN, Starting on Tue07/08/25 at 2052, Until Discontinued, Routine, low blood sugar per Hypoglycemia Prevention and Treatment protocol glucose (Glutose) 40 % oral gel 15-30 grams of glucose(Linked Group 1) 15-30 grams of glucose, Sublingual, Every 15 min PRN, Starting on Tue07/08/25 at 2052, Until Discontinued, Routine, low blood sugar, per Hypoglycemia Prevention and Treatment protocol HYDROmorphone (Dilaudid) bolus from bag(Linked Group 2) 0.25 mg, Intravenous, Every 10 min PRN, Starting on Tue07/08/25 at 2326, Until Discontinued, Administer over 2 Minutes, Routine, moderate pain, CPOT (3-4) HYDROmorphone (Dilaudid) bolus from bag(Linked Group 2) 0.5 mg, Intravenous, Every 10 min PRN, Starting on Tue07/08/25 at 2326, Until Discontinued, Administer over 2 Minutes, Routine, CPOT (5-8) insulin regular (HumuLIN, NovoLIN) bolus from bag 4 Units 4 Units, Intravenous, Every 2 hour PRN, Starting on Tue07/08/25 at 205, Until Discontinued, Routine, if FSBS => 301 sodium chloride 0.9 % flush 10 mL 10 mL, Intravenous, Every 1 hour PRN, Starting on Tue07/08/25 at 2334, Until Discontinued, Routine, Flush Before and After EVERY dose of medication. sodium chloride 0.9 % flush 20 mL 20 mL, Intravenous, Every 1 hour PRN, Starting on Tue07/08/25 at 2334, Until Discontinued, Routine, After blood draws and if any blood seen in tubing. sodium hypochlorite (Dakin's (QUARTER-Strength)) external solution (CANCELED) As needed, Starting on Tue07/08/25 at 2258, Until Tue07/08/25 at 2327, Routine 2258 (Given - Provider: Brittany Crawford MD - Comment: right leg) Linked Groups Order Group 1: glucose (Glutose) 40 % oral gel 15-30 grams of glucoseJump to med 15-30 grams of glucose, Sublingual, Every 15 min PRN, Starting on Tue07/08/25 at 2053, Until Discontinued, Routine, low blood sugar, per Hypoglycemia Prevention and Treatment protocol Or dextrose 10 % (D10W) bolus 125 mLJump to med 125 mL, Intravenous, Every 15 min PRN, Starting on Tue07/08/25 at 2053, Until Discontinued, Administer over 15 Minutes, Routine, low blood sugar BG 51-89 mg/dL Or dextrose 10 % (D10W) bolus 250 mLJump to med 250 mL, Intravenous, Every 15 min PRN, Starting on Tue07/08/25 at 2053, Until Discontinued, Administer over 15 Minutes, Routine, PRN low blood sugar BG =/<50 mg/dL Or glucagon (human recombinant) injection 1 mgJump to med 1 mg, Intramuscular, Every 15 min PRN, Starting on Tue07/08/25 at 2053, Until Discontinued, Routine, low blood sugar per Hypoglycemia Prevention and Treatment protocol Group 2: HYDROmorphone (Dilaudid) bolus from bagJump to med 0.25 mg, Intravenous, Every 10 min PRN, Starting on Tue07/08/25 at 2326, Until Discontinued, Administer over 2 Minutes, Routine, moderate pain, CPOT (3-4) Or HYDROmorphone (Dilaudid) bolus from bagJump to med 0.5 mg, Intravenous, Every 10 min PRN, Starting on Tue07/08/25 at 2326, Until Discontinued, Administer over 2 Minutes, Routine, CPOT (5-8) documented in this encounter Additional Health Concerns Assessment Noted Time PHQ-9 Depression Total Score: 16 023 9:36 AM EDT A fall risk assessment has been complete d for the patient 08/31/2023 9:38 AM EDT A Body Mass Index follow-up plan has been documented for the patient 02/29/2024 10:30 AM EDT documented as of this encounter Care Teams Vp Corporate Development Relationship Specialty Start Date End Date Yenny Dhillon APRN [address] [place] [address] PCP - General 07/22/23 documented as of this encounter
--- OUTSIDE RECORDS SUMMARY | 2025-07-08 20:00 | XMS_ITS | Encounter Summary ---
Author Organization Healthcare Address [address] [place] [address] Care Team Providers Care Health Educator Name Role Phone Alejo Yenny Lit CASTRO Primary Care Provider [phone] Reason for Visit * Reason Comments Wound Check Encounter Details Date Type Department Care Team (Late st Contact Info) Description 07/08/2025 8:00 PM EDT - 07/08/2025 9:30 PM EDT Surgery [facility] A OPERATING ROOM [address] [place] [address] Brittany Crawford MD [address] [facility] [address] [place] [address] IRRIGATION AND DEBRIDEMENT, WOUND [58235 (CPT )] Social History Tobacco Use Types Packs/Day Years [...] EDT Height - - Body Mass Index 56.12 07/08/2025 6:05 PM EDT documented in this encounter Functional Status * Calculated C-SSRS Risk Score (Lifetime/Recent) Answer Date of Assessment Author No Risk Indicated 07/08/2025 6:11 PM EDT Kadi Lam RN * Question Answer Date of Assessment Author 1. Wish to be (Past 1 Month) No 025 6:11 PM EDT Kadi Bustamante RN 2. Non-Specific Active Suici silvia Thoughts (Past 1 Month) No 07/08/2025 6:11 PM EDT Maryellen Bustamante RN 6. Suicidal Behavior (Lifetime) No 6:11 PM EDT Kadi Bustamante RN documented as of this encounter Miscellaneous [...] 07/08/2025 9:01 PM EDT Date: 07/09/25 Location: [facility] Name: Ashley Brown, : 1975, Diagnoses: Pre-op Diagnosis Necrotizing fasciitis (CMS/HCC) Post-op Diagnosis Necrotizing fasciitis (CMS/HCC) Procedure(s): Excisional debridement of right lower extremity, groin, pubis, and abdominal wall of skin, subcutaneous tissue, and muscle fascia, 65x20 cm Attending Surgeon(s): * Brittany Crawford - Primary Warehouse Laborer(s): * Kristy Fields MD - Resident - [...] and Gram Stain Microbiology Routine Necrotizing fasciitis ([facility]) 07/08/2025 9:06 PM EDT Tissue Culture and Gram Stain Microbiology Routine Necrotizing fasciitis ([facility]) 07/08/2025 10:48 PM EDT Multi Drug Resistance [...] Exam Pathology and Cytology Timed Necrotizing fasciitis ([facility]) Release Upon Ordering for 1 Occurrences starting [...] PANEL, PLASMA STAT 07/08/2025 6:14 PM EDT ID CRITICAL CARE, E/M 30-74 MINUTES Routine 07/08/2025 5:58 PM EDT documented in this encounter Results * (ABNORMAL) POCT glucose meter (07/09/2025 6:05 AM EDT) POCT Glucose 196(H) 74 - 99 mg/dL 07/09/2025 6:20 AM EDT [facility] Comment:Accuracy of a glucos e result [...] Comment 07/09/2025 6:20 AM EDT [facility]ARE [facility] Finish Machine Tender ID Cheyanne Briceño 07/09/2025 6:20 AM EDT HEALTHCARE LAB Device ID [id number] 07/09/2025 6:20 AM EDT [facility]ARE [facility] Specimen Type POC Arterial 07/09/2025 6:20 AM EDT [facility] Blood Arterial blood specimen / Unknown 07/09/2025 6:05 AM EDT 07/09/2025 6:20 AM EDT Brittany Crawford MD LAB POINT OF CARE TEST DOCKED DEVICE UNSOLICITED RESULTS Final Result Performing Organization Address City/[facility] Co de Phone Number [facility] [address] [place] [address] * Phosphorus (07/09/2025 4:57 AM EDT) Phosphorus, Plasma 4.1 2.5 - 4.5 mg/dL 07/09/2025 5:35 AM EDT [facility] Blood Arterial blood specimen / Unknown Venipuncture / Unknown 07/09/2025 4:57 AM EDT 07/09/2025 5:06 AM EDT us Brittany Crawford MD LAB BLOOD ORDERABLES Final Result [facility] [address] [place] [address] * Magnesium, Plasma (07/09/2025 4:57 AM EDT) Magnesium, Plasma 2.2 1.9 - 2.4 mg/dL 07/09/2025 5:35 AM EDT [facility] Blood Arterial blood specimen / Unknown Venipuncture / Unknown 07/09/2025 4:57 AM EDT 07/09/2025 5:06 AM EDT us Brittany Crawford MD LAB BLOOD ORDERABLES Final Result [facility] [address] [place] [address] * (ABNORMAL) Basic Metabolic Panel, Plasma (07/09/2025 4:57 AM EDT) Glucose, Plasma 235(H) 74 - 99 mg/dL 07/09/2025 5:35 AM EDT [facility] BUN, Plasma 30(H) 7 - 21 mg/dL 07/09/2025 5:35 AM EDT [facility] Creatinine, Plasma 1.58(H) 0.60 - 1.10 mg/dL 07/09/2025 5:35 AM EDT [facility] BUN/Creatinine Ratio 19 07/09/2025 5:35 AM EDT [facility] Sodium, Plasma 136 136 - 145 mmol/L 07/09/2025 5:35 AM EDT [facility] Potassium, Plasma 3.5(L) 3.6 - 4.9 mmol/L 07/09/2025 5:35 AM EDT [facility] Chloride, Plasma 101 97 - 107 mmol/L 07/09/2025 5:35 AM EDT [facility] CO2, Plasma 23 22 - 29 mmol/L 07/09/2025 5:35 AM EDT [facility] Anion Gap 12 6 - 16 mmol/L 07/09/2025 5:35 AM EDT [facility] Total Calcium, Plasma 9.2 8.9 - 10.2 mg/dL 07/09/2025 5:35 AM EDT [facility] eGFRcr 40.0 mL/min/1.7 3m*2 07/09/2025 5:35 AM EDT [facility] Comment:Reported eGFRcr in m L/min/1.73m2 is based the CKD-EPI 2020 equation that does not use a race coefficient. Blood Arterial blood specimen / Unknown Venipuncture / Unknown 07/09/2025 4:57 AM EDT 07/09/2025 5:06 AM EDT us Brittany Crawford MD LAB BLOOD ORDERABLES Final Result [facility] [address] [place] [address] * (ABNORMAL) CBC W/O Differential (07/09/2025 4:57 AM EDT) WBC Count 32.25(H) 3.70 - 10.30 10*3/uL LAB HEMATOLOGY METHOD 07/09/2025 5:15 AM EDT [facility] RBC Count 3.89(L) 3.90 - 5.20 10*6/uL LAB HEMATOLOGY METHOD 07/09/2025 5:15 AM EDT [facility] HGB 11.0(L) 11.2 - 15.7 g/dL LAB HEMATOLOGY METHOD 07/09/2025 5:15 AM EDT [facility] HCT 33.4(L) 34.0 - 45.0 % LAB HEMATOLOGY METHOD 07/09/2025 5:15 AM EDT [facility] Platelet Count 358 155 - 369 10*3/uL LAB HEMATOLOGY METHOD 07/09/2025 5:15 AM EDT [facility] MCV 86 79 - 98 fL LAB HEMATOLOGY METHOD 07/09/2025 5:15 AM EDT [facility] MCH 28.3 26.0 - 32.0 pg LAB HEMATOLOGY METHOD 07/09/2025 5:15 AM EDT [facility] MCHC 32.9 30.7 - 35.5 g/dL LAB HEMATOLOGY METHOD 07/09/2025 5:15 AM EDT [facility] RDW 17.4(H) 11.5 - 14.5 % LAB HEMATOLOGY METHOD 07/09/2025 5:15 AM EDT [facility] MPV 10.0 8.8 - 12.5 fL LAB HEMATOLOGY METHOD 07/09/2025 5:15 AM EDT [facility] nRBC 0.0 <=0.0 per 100 WBCs LAB HEMATOLOGY METHOD 07/09/2025 5:15 AM EDT [facility] Blood Arterial blood specimen / Unknown Venipuncture / Unknown 07/09/2025 4:57 AM EDT 07/09/2025 5:07 AM EDT us Brittany Crawford MD LAB BLOOD ORDERABLES Final Result Performing Organization Address City/State/[facility] Co de Phone Number [facility] [address] [place] [address] * (ABNORMAL) POCT glucose meter (07/09/2025 4:03 [...] Comment 07/09/2025 4:05 AM EDT [facility]ARE LAB Finish Machine Tender ID Cheyanne Briceño 07/09/2025 4:05 AM EDT HEALTHCARE LAB Device ID [id number] 07/09/2025 4:05 AM EDT [facility] LAB Specimen Type POC Arterial 07/09/2025 4:05 AM EDT [facility] Blood Arterial blood specimen / Unknown 07/09/2025 4:03 AM EDT 07/09/2025 4:05 AM EDT us Brittany Crawford MD LAB POINT OF CARE TEST DOCKED DEVICE UNSOLICITED RESULTS Final Result Performing Organization Address City/[facility] Co de Phone Number HEALTHCARE LAB [address] [place] [address] * XR Chest 1 View (07/09/2025 3:42 [...] - 99 mg/dL 07/09/2025 2:17 AM EDT [facility] Comment:Accuracy of a glucos e result [...] for testing. Comment 07/09/2025 2:17 AM EDT [facility] Finish Machine Tender ID Cheyanne Briceño 07/09/2025 2:17 AM EDT [facility] Device ID [id number] 07/09/2025 2:17 AM EDT HEALTHCARE LAB Specimen Type POC Arterial 07/09/2025 2:17 AM EDT [facility] Blood Arterial blood specimen / Unknown 07/09/2025 2:15 AM EDT 07/09/2025 2:17 AM EDT us Brittany Crawford MD LAB POINT OF CARE TEST DOCKED DEVICE UNSOLICITED RESULTS Final Result [facility] [address] [place] [address] * (ABNORMAL) Blood gas panel, arterial (07/09/2025 2:11 AM EDT) pH, Arterial 7.25(LL) 7.35 - 7.45 LAB HEMATOLOGY METHOD 07/09/2025 2:23 AM EDT [facility] pCO2, Arterial 56(H) 35 - 48 mmHg LAB HEMATOLOGY METHOD 07/09/2025 2:23 AM EDT [facility] pO2, Arterial 67(L) 83 - 108 mmHg LAB HEMATOLOGY METHOD 07/09/2025 2:23 AM EDT [facility] SO2, Measured, Arterial 91(L) 94 - 98 % LAB HEMATOLOGY METHOD 07/09/2025 2:23 AM EDT [facility] Base Excess, Arterial -2.7(L) -2.0 - 3.0 mmol/L LAB HEMATOLOGY METHOD 07/09/2025 2:23 AM EDT [facility] Bicarbonate, Calculated, Arterial 25 22 - 26 mmol/L LAB HEMATOLOGY METHOD 07/09/2025 2:23 AM EDT [facility] Hematocrit, Whole Blood 31.5(L) 34.0 - 45.0 % LAB HEMATOLOGY METHOD 07/09/2025 2:23 AM EDT [facility] Sodium, Whole Blood 135(L) 136 - 145 mmol/L LAB HEMATOLOGY METHOD 07/09/2025 2:23 AM EDT [facility] Potassium, Whole Blood 3.5(L) 3.6 - 4.9 mmol/L LAB HEMATOLOGY METHOD 07/09/2025 2:23 AM EDT [facility] Chloride, Whole Blood 103 97 - 107 mmol/L LAB HEMATOLOGY METHOD 07/09/2025 2:23 AM EDT [facility] Glucose, Whole Blood 279(H) 74 - 99 mg/dL LAB HEMATOLOGY METHOD 07/09/2025 2:23 AM EDT [facility] Ionized Calcium, Whole Blood 4.9 4.6 - 5.1 mg/dL LAB HEMATOLOGY METHOD 07/09/2025 2:23 AM EDT [facility] Lactate, Arterial, Whole Blood 1.2 0.5 - 1.6 mmol/L LAB HEMATOLOGY METHOD 07/09/2025 2:23 AM EDT [facility] Blood Arterial blood specimen / Unknown Arterial Puncture / Unknown 07/09/2025 2:11 AM EDT 07/09/2025 2:21 AM EDT us Brittany Crawford MD LAB BLOOD ORDERABLES Final Result [facility] [address] [place] [address] * (ABNORMAL) POCT glucose meter (07/09/2025 1:22 [...] Comment 07/09/2025 1:24 AM EDT [facility]ALTHCARE LAB Finish Machine Tender ID Cheyanne Briceño 07/09/2025 1:24 AM EDT HEALTHCARE LAB Device ID [id number] 07/09/2025 1:24 AM EDT [facility]ALTH[facility]ARE LAB Specimen Type POC Arterial 07/09/2025 1:24 AM EDT [facility] Blood Arterial blood specimen / Unknown 07/09/2025 1:22 AM EDT 07/09/2025 1:24 AM EDT us Brittany Crawford MD LAB POINT OF CARE TEST DOCKED DEVICE UNSOLICITED RESULTS Final Result Performing Organization Address City/[facility] Co de Phone Number [facility]ALTHCARE LAB [address] [place] [address] * (ABNORMAL) POCT glucose meter (07/09/2025 12:06 AM EDT) [facility] POCT Glucose 311(H) 74 - [...] for testing. Comment 07/09/2025 12:08 AM EDT [facility] Finish Machine Tender ID Cheyanne Briceño 07/09/2025 12:08 AM EDT [employer] [facility] Device ID [id number] 07/09/2025 12:08 AM EDT [facility] Specimen Type POC Arterial 07/09/2025 12:08 AM EDT [facility] Blood Arterial blood specimen / Unknown 07/09/2025 12:06 AM EDT 07/09/2025 12:08 AM EDT us Brittany Crawford MD LAB POINT OF CARE TEST DOCKED DEVICE UNSOLICITED RESULTS Final Result Performing Organization Address [facility] Co de Phone Number [facility] [address] [place] [address] * APTT (07/08/2025 11:53 PM EDT) [facility] aPTT 25 25 - 35 sec LAB COAGULATION METHOD 07/09/2025 12:32 AM EDT [facility] Blood Venous blood specimen / Unknown Venipuncture / Unknown 07/08/2025 11:53 PM EDT 07/08/2025 11:59 PM EDT us Brittany Crawford MD LAB BLOOD ORDERABLES Final Result Performing Organization Address City/[facility] Co de Phone Number [facility] [address] [place] [address] * (ABNORMAL) Protime-INR (07/08/2025 11:53 PM EDT) [facility] Prothrombin Time 15.2(H) 12.0 - 14.3 sec LAB COAGULATION METHOD 07/09/2025 12:32 AM EDT [facility] INR 1.2(H) 0.9 - 1.1 LAB COAGULATION METHOD 07/09/2025 12:32 AM EDT [facility] Blood Venous blood specimen / Unknown Venipuncture / Unknown 07/08/2025 11:53 PM EDT 07/08/2025 11:59 PM EDT Narrative [facility] - 07/09/2025 12:32 AM EDT OPTIMAL INR RANGES FOR PATIENT ON ORAL ANTICOAGULANT THERAPY Prevention of venous thromboembolism INR 2.0 to 3.0 In patients with heart disease: Atrial fibrillation INR 2.0 to 3.0 Valvular heart disease INR 2.0 to 3.0 Tissue heart valves INR 2.0 to 3.0 Mechanical prosthetic valves INR 2.5 to 3.5 Prevention of recurrent LA INR 2.5 to 3.5 us Brittany Crawford MD LAB BLOOD ORDERABLES Final Result [facility] [address] [place] [address] * Phosphorus, Plasma (07/08/2025 11:52 PM EDT) [facility] Phosphorus, Plasma 3.6 2.5 - 4.5 mg/dL 07/09/2025 12:27 AM EDT [facility] Blood Venous blood specimen / Unknown Venipuncture / Unknown 07/08/2025 11:52 PM EDT 07/08/2025 11:59 PM EDT Brittany Crawford MD LAB BLOOD ORDERABLES Final Result [facility] [address] [place] [address] * (ABNORMAL) Magnesium, Plasma (07/08/2025 11:52 PM EDT) Pathologist [facility] Magnesium, Plasma 1.8(L) 1.9 - 2.4 mg/dL 07/09/2025 12:27 AM EDT [facility] Blood Venous blood specimen / Unknown Venipuncture / Unknown 07/08/2025 11:52 PM EDT 07/08/2025 11:59 PM EDT us Brittany Crawford MD LAB BLOOD ORDERABLES Final Result [facility] [address] [place] [address] * (ABNORMAL) Basic Metabolic Panel, Plasma (07/08/2025 11:52 PM EDT) Glucose, Plasma 314(H) 74 - 99 mg/dL 07/09/2025 12:27 AM EDT [facility] BUN, Plasma 32(H) 7 - 21 mg/dL 07/09/2025 12:27 AM EDT [facility] Creatinine, Plasma 1.80(H) 0.60 - 1.10 mg/dL 07/09/2025 12:27 AM EDT [facility] BUN/Creatinine Ratio 18 07/09/2025 12:27 AM EDT [facility] Sodium, Plasma 136 136 - 145 mmol/L 07/09/2025 12:27 AM EDT [facility] Potassium, Plasma 3.6 3.6 - 4.9 mmol/L 07/09/2025 12:27 AM EDT [facility] Chloride, Plasma 100 97 - 107 mmol/L 07/09/2025 12:27 AM EDT [facility] CO2, Plasma 23 22 - 29 mmol/L 07/09/2025 12:27 AM EDT [facility] Anion Gap 13 6 - 16 mmol/L 07/09/2025 12:27 AM EDT [facility] Total Calcium, Plasma 8.9 8.9 - 10.2 mg/dL 07/09/2025 12:27 AM EDT [facility] eGFRcr 34.2 mL/min/1.7 3m*2 07/09/2025 12:27 AM EDT [facility] Comment:Reported eGFRcr in m L/min/1.73m2 is based the CKD-EPI 2020 equation that does not use a race coefficient. Blood Venous blood specimen / Unknown Venipuncture / Unknown 07/08/2025 11:52 PM EDT 07/08/2025 11:59 PM EDT us Brittany Crawford MD LAB BLOOD ORDERABLES Final Result [facility] [address] [place] [address] * (ABNORMAL) CBC W/O Differential (07/08/2025 11:52 PM EDT) WBC Count 22.50(H) 3.70 - 10.30 10*3/uL LAB HEMATOLOGY METHOD 07/09/2025 12:16 AM EDT [facility] RBC Count 3.60(L) 3.90 - 5.20 10*6/uL LAB HEMATOLOGY METHOD 07/09/2025 12:16 AM EDT [facility] HGB 10.0(L) 11.2 - 15.7 g/dL LAB HEMATOLOGY METHOD 07/09/2025 12:16 AM EDT [facility] HCT 30.8(L) 34.0 - 45.0 % LAB HEMATOLOGY METHOD 07/09/2025 12:16 AM EDT [facility] Platelet Count 273 155 - 369 10*3/uL LAB HEMATOLOGY METHOD 07/09/2025 12:16 AM EDT [facility] MCV 86 79 - 98 fL LAB HEMATOLOGY METHOD 07/09/2025 12:16 AM EDT [facility] MCH 27.8 26.0 - 32.0 pg LAB HEMATOLOGY METHOD 07/09/2025 12:16 AM EDT [facility] MCHC 32.5 30.7 - 35.5 g/dL LAB HEMATOLOGY METHOD 07/09/2025 12:16 AM EDT [facility] RDW 16.9(H) 11.5 - 14.5 % LAB HEMATOLOGY METHOD 07/09/2025 12:16 AM EDT [facility] MPV 10.3 8.8 - 12.5 fL LAB HEMATOLOGY METHOD 07/09/2025 12:16 AM EDT [facility] nRBC 0.0 <=0.0 per 100 WBCs LAB HEMATOLOGY METHOD 07/09/2025 12:16 AM EDT [facility] Blood Venous blood specimen / Unknown Venipuncture / Unknown 07/08/2025 11:52 PM EDT 07/08/2025 11:59 PM EDT us Brittany Crawford MD LAB BLOOD ORDERABLES Final Result [facility] [address] [place] [address] * (ABNORMAL) Blood gas, arterial (07/08/2025 11:50 PM EDT) pH, Arterial 7.27(L) 7.35 - 7.45 LAB HEMATOLOGY METHOD 07/09/2025 12:00 AM EDT [facility] pCO2, Arterial 53(H) 35 - 48 mmHg LAB HEMATOLOGY METHOD 07/09/2025 12:00 AM EDT [facility] pO2, Arterial 114(H) 83 - 108 mmHg LAB HEMATOLOGY METHOD 07/09/2025 12:00 AM EDT [facility] SO2, Measured, Arterial 99(H) 94 - 98 % LAB HEMATOLOGY METHOD 07/09/2025 12:00 AM EDT [facility] Base Excess, Arterial -3.1(L) -2.0 - 3.0 mmol/L LAB HEMATOLOGY METHOD 07/09/2025 12:00 AM EDT [facility] Bicarbonate, Calculated, Arterial 24 22 - 26 mmol/L LAB HEMATOLOGY METHOD 07/09/2025 12:00 AM EDT [facility] Hematocrit, Whole Blood 31.0(L) 34.0 - 45.0 % LAB HEMATOLOGY METHOD 07/09/2025 12:00 AM EDT [facility] Sodium, Whole Blood 134(L) 136 - 145 mmol/L LAB HEMATOLOGY METHOD 07/09/2025 12:00 AM EDT [facility] Potassium, Whole Blood 3.5(L) 3.6 - 4.9 mmol/L LAB HEMATOLOGY METHOD 07/09/2025 12:00 AM EDT [facility] Chloride, Whole Blood 101 97 - 107 mmol/L LAB HEMATOLOGY METHOD 07/09/2025 12:00 AM EDT [facility] Glucose, Whole Blood 315(H) 74 - 99 mg/dL LAB HEMATOLOGY METHOD 07/09/2025 12:00 AM EDT [facility] Ionized Calcium, Whole Blood 5.1 4.6 - 5.1 mg/dL LAB HEMATOLOGY METHOD 07/09/2025 12:00 AM EDT [facility] Lactate, Arterial, Whole Blood 1.7(H) 0.5 - 1.6 mmol/L LAB HEMATOLOGY METHOD 07/09/2025 12:00 AM EDT [facility] Blood Arterial blood specimen / Unknown Arterial Puncture / Unknown 07/08/2025 11:50 PM EDT 07/08/2025 11:59 PM EDT us Richard Betts CRNA LAB BLOOD ORDERABLES Sarah bennett Result [facility] [address] [place] [address] * (ABNORMAL) POCT glucose meter (07/08/2025 11:49 PM EDT) [facility] POCT Glucose 316(H) 74 - [...] Comment 07/08/2025 11:50 PM EDT [facility]ALTHCARE LAB Finish Machine Tender ID Mary Cotto 07/08/2025 11:50 PM EDT HEALTHCARE LAB Device ID [id number] 07/08/2025 11:50 PM EDT [facility]ALTH[facility]ARE LAB Specimen Type POC Arterial 07/08/2025 11:50 PM EDT [facility] Blood Arterial blood specimen / Unknown 07/08/2025 11:49 PM EDT 07/08/2025 11:50 PM EDT us Brittany Crawford MD LAB POINT OF CARE TEST DOCKED DEVICE UNSOLICITED RESULTS Final Result [facility] [address] [place] [id number] * Transfuse fresh frozen plasma (07/08/2025 10:35 PM EDT) Richard Yeboahshahnazsharyn MALIK BLOOD TRANSFUSION ORDERAB LES Final Result * Transfuse RBC (07/08/2025 10:29 PM EDT) Richard Betts CRNA BLOOD TRANSFUSION ORDERAB LES Final Result * (ABNORMAL) Blood gas panel, arterial (07/08/2025 10:08 PM EDT) pH, Arterial 7.28(L) 7.35 - 7.45 LAB HEMATOLOGY METHOD 07/08/2025 10:15 PM EDT [facility] pCO2, Arterial 50(H) 35 - 48 mmHg LAB HEMATOLOGY METHOD 07/08/2025 10:15 PM EDT [facility] pO2, Arterial 121(H) 83 - 108 mmHg LAB HEMATOLOGY METHOD 07/08/2025 10:15 PM EDT [facility] SO2, Measured, Arterial 99(H) 94 - 98 % LAB HEMATOLOGY METHOD 07/08/2025 10:15 PM EDT [facility] Base Excess, Arterial -3.6(L) -2.0 - 3.0 mmol/L LAB HEMATOLOGY METHOD 07/08/2025 10:15 PM EDT [facility] Bicarbonate, Calculated, Arterial 23 22 - 26 mmol/L LAB HEMATOLOGY METHOD 07/08/2025 10:15 PM EDT [facility] Hematocrit, Whole Blood 29.9(L) 34.0 - 45.0 % LAB HEMATOLOGY METHOD 07/08/2025 10:15 PM EDT [facility] Sodium, Whole Blood 133(L) 136 - 145 mmol/L LAB HEMATOLOGY METHOD 07/08/2025 10:15 PM EDT [facility] Potassium, Whole Blood 3.5(L) 3.6 - 4.9 mmol/L LAB HEMATOLOGY METHOD 07/08/2025 10:15 PM EDT [facility] Chloride, Whole Blood 101 97 - 107 mmol/L LAB HEMATOLOGY METHOD 07/08/2025 10:15 PM EDT [facility] Glucose, Whole Blood 351(H) 74 - 99 mg/dL LAB HEMATOLOGY METHOD 07/08/2025 10:15 PM EDT [facility] Ionized Calcium, Whole Blood 4.5(L) 4.6 - 5.1 mg/dL LAB HEMATOLOGY METHOD 07/08/2025 10:15 PM EDT [facility] Lactate, Arterial, Whole Blood 2.1(H) 0.5 - 1.6 mmol/L LAB HEMATOLOGY METHOD 07/08/2025 10:15 PM EDT [facility] Blood Arterial blood specimen / Unknown 07/08/2025 10:08 PM EDT 07/08/2025 10:14 PM EDT Comment:Pre-op diagnosis: Necrotizing fasciitis (CMS/HCC) [M72.6] Brittany Crawford MD LAB BLOOD ORDERABLES Final Result [facility] [address] [place] [address] * Transfuse fresh frozen plasma (07/08/2025 10:04 PM EDT) Richard N Yongbang TEST SPECIALIST BLOOD TRANSFUSION ORDERAB LES Final Result * Transfuse fresh frozen plasma: 1 Units (07/08/2025 10:04 PM EDT) Richard N Yongbang TEST SPECIALIST BLOOD TRANSFUSION ORDERAB LES Final Result * Transfuse RBC (07/08/2025 9:41 PM EDT) Richard N Yongbang TEST SPECIALIST BLOOD TRANSFUSION ORDERAB LES Final Result * Transfuse RBC: 1 Units (07/08/2025 9:41 PM EDT) Richard N Yongbang TEST SPECIALIST BLOOD TRANSFUSION ORDERAB LES Final Result * Prepare Fresh Frozen Plasma: 2 Units (07/08/2025 9:24 PM EDT) Product Code [id number] BLOO D BANK Dispense Status Transfused BLOOD BANK Blood Expiration Date [id number] BLOOD BANK Unit Number [id number] B LOOD BANK Product Blood Type 5100 BLOOD BANK Blood Type O+ BLOOD BANK Product Code [id number] BLOO D BANK Dispense Status Transfused BLOOD BANK Blood Expiration Date [id number] BLOOD BANK Unit Number [id number] CH B LOOD BANK Product Blood Type 5100 BLOOD BANK Blood Type O+ BLOOD BANK Blood Venous blood specimen / Unknown [facility] Carlos Betts [facility] BLOOD BANK PRODUCT ORDERA BLES Final Result Performing Organization Address [facility] Co de Phone Number BLOOD BANK [address] [place] [address], * Prepare Leukocyte Reduced RBC: 2 Units (07/08/2025 9:23 PM EDT) Product Code [id number] BLOO D BANK Dispense Status Transfused BLOOD BANK Blood Expiration Date [id number] BLOOD BANK Unit Number [id number] [facility] B LOOD BANK Product Blood Type 5100 BLOOD BANK Blood Type O+ BLOOD BANK Crossmatch Compatible BLOOD BANK Product Code [id number] BLOO D BANK Dispense Status Transfused BLOOD BANK Blood Expiration Date [id number] BLOOD BANK Unit Number [id number] [facility] B LOOD BANK Product Blood Type 5100 BLOOD BANK Blood Type O+ BLOOD BANK Crossmatch Compatible BLOOD BANK Other [facility] BLOOD BANK PRODUCT ORDERA BLES Final Result Performing Organization Address [facility] Co de Phone Number BLOOD BANK [address] [place] [address], * (ABNORMAL) POCT arterial blood gas gem (07/08/2025 8:51 PM EDT) pH, Arterial 7.28(L) 7.35 - 7.45 07/08/2025 8:53 PM EDT [facility] pCO2, Arterial 53(H) 35 - 48 mm Hg 07/08/2025 8:53 PM EDT [facility] pO2, Arterial 152(H) 83 - 108 mm Hg 07/08/2025 8:53 PM EDT [facility] SO2, Arterial 99(H) 94 - 98 % 07/08/2025 8:53 PM EDT [facility] Base Excess, Arterial -2.3(L) -2 - 3 mmol/L 07/08/2025 8:53 PM EDT [facility] HCO3, Arterial 24.9 22 - 26 mmol/L 07/08/2025 8:53 PM EDT [facility] Total Hemoglobin, Arterial, Whole Blood 10.9(L) 11.2 - 15.7 g/dL 07/08/2025 8:53 PM T [facility] Hematocrit, Arterial 33.0(L) 34.0 - 45.0 % 07/08/2025 8:53 PM EDT [facility] Sodium, Arterial 131(L) 136 - 145 mmol/L 07/08/2025 8:53 PM T [facility] Potassium, Arterial 3.8 3.6 - 4.9 mmol/L 07/08/2025 8:53 PM EDT [facility] Chloride, Whole Blood 98 97 - 107 mmol/L 07/08/2025 8:53 PM [facility] Glucose, Arterial 418(H) 74 - 99 mg/dL 07/08/2025 8:53 PM T [facility] Ionized Calcium, Arterial 4.9 4.6 - 5.1 mg/dL 07/08/2025 8:53 PM [facility] Lactate, Arterial 1.6 0.5 - 1.6 mmol/L 07/08/2025 8:53 PM EDT [facility] Body Temperature 37.0 Celsius 07/08/2025 8:53 PM [facility] pH, Temp Corrected, Arterial 7.28(L) 7.35 - 7.45 07/08/2025 8:53 PM [facility] pCO2, Temp Corrected, Arterial 53(H) 35 - 48 mm Hg 07/08/2025 8:53 PM T [facility] pO2, Temp Corrected, Arterial 152(H) 83 - 108 mm Hg 07/08/2025 8:53 PM EDT [facility] 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 Machine 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 ID Yadi Goel 07/08/2025 8:53 PM EDT [facility] Blood, Arterial Whole blood specimen / Unknown 07/08/2025 8:51 PM EDT 07/08/2025 8:53 PM EDT Brittany Crawford MD LAB POINT OF CARE TEST DOCKED DEVICE UNSOLICITED RESULTS Final Result Performing Organization Address City/[facility]/ZIP Co de Phone Number [facility] [address] [place] [address] * ED HIV 1/2 Antibody/Antigen Screen w/Reflex to HIV 1/2 Differentiation (07/08/2025 6:14 PM EDT) [facility] HIV 1 & 2 Antibody/Antigen Screen Non Reactive Non Reactive 07/08/2025 7:12 PM EDT [facility] Comment:Screening for HIV 1 & 2 antibodies, and P24 antigen is NONREACTIVE. No confirmatory testing is required. Blood Venous blood specimen / Unknown Venipuncture / Unknown 07/08/2025 6:14 PM EDT 07/08/2025 6:30 PM EDT us Kyle Mckinney MD LAB BLOOD ORDERABLES Fi nal Result Performing Organization Address City/[facility]/ZIP Co de Phone Number [facility] [address] [place] [address] * Hepatitis C Antibody - ED (07/08/2025 6:14 PM EDT) [facility] Hepatitis C Antibody Negative Negative 07/08/2025 7:12 PM EDT [facility] Blood Venous blood specimen / Unknown Venipuncture / Unknown 07/08/2025 6:14 PM EDT 07/08/2025 6:30 PM EDT Kyle Mckinney MD LAB BLOOD ORDERABLES Fi nal Result Performing Organization Address City/[facility]/ZIP Co de Phone Number [facility] [address] [place] [address] * (ABNORMAL) C-Reactive protein (07/08/2025 6:14 PM EDT) [facility] CRP, Plasma 462.2(H) <=8.0 mg/L 07/08/2025 7:18 PM EDT [facility] Blood Venous blood specimen / Unknown Venipuncture / Unknown 07/08/2025 6:14 PM EDT 07/08/2025 6:23 PM EDT Narrative [facility] - 07/08/2025 7:18 PM EDT This CRP test is appropriate for assessment of infection, systemic inflammation and/or tissue injury. To assess cardiovascular disease risk order high sensitivity CRP (CRPH). Kyle Mckinney MD LAB BLOOD ORDERABLES Fi nal Result Performing Organization Address City/[facility] Co de Phone Number [facility] [address] [place] [address] * (ABNORMAL) Lactic acid, venous (07/08/2025 6:14 PM EDT) Lactate, Venous, Whole Blood 2.6(H) 0.5 - 2.2 mmol/L LAB HEMATOLOGY METHOD 07/08/2025 6:29 PM EDT [facility] Blood Venous blood specimen / Unknown Venipuncture / Unknown 07/08/2025 6:14 PM EDT 07/08/2025 6:23 PM EDT Kyle Mckinney MD LAB BLOOD ORDERABLES Fi nal Result Performing Organization Address [facility] [place] [address] * Type and screen (07/08/2025 6:14 PM [...] ORD ERABLES Final Result Performing Organization Address City/[facility] Co de Phone Number BLOOD BANK [address] * (ABNORMAL) PT-INR (07/08/2025 6:14 PM EDT) Prothrombin Time 15.3(H) 12.0 - 14.3 sec 07/08/2025 6:56 PM EDT [facility] INR 1.2(H) 0.9 - 1.1 07/08/2025 6:56 PM EDT [facility] Blood Venous blood specimen / Unknown Venipuncture / Unknown 07/08/2025 6:14 PM EDT 07/08/2025 6:23 PM EDT Narrative [facility] - 07/08/2025 6:56 PM EDT OPTIMAL INR RANGES FOR PATIENT ON ORAL ANTICOAGULANT THERAPY Prevention of venous thromboembolism INR 2.0 to 3.0 In patients with heart disease: Atrial fibrillation INR 2.0 to 3.0 Valvular heart disease INR 2.0 to 3.0 Tissue heart valves INR 2.0 to 3.0 Mechanical prosthetic valves INR 2.5 to 3.5 Prevention of recurrent LA INR 2.5 to 3.5 Kyle Mckinney MD LAB BLOOD ORDERABLES nal Result [facility] [address] [place] [address] * (ABNORMAL) CBC w/diff (07/08/2025 6:14 PM EDT) WBC Count 26.15(H) 3.70 - 10.30 10*3/uL LAB HEMATOLOGY METHOD 07/08/2025 9:04 PM EDT [facility] RBC Count 3.97 3.90 - 5.20 10*6/uL LAB HEMATOLOGY METHOD 07/08/2025 9:04 PM EDT [facility] HGB 10.9(L) 11.2 - 15.7 g/dL LAB HEMATOLOGY METHOD 07/08/2025 9:04 PM EDT [facility] HCT 33.6(L) 34.0 - 45.0 % LAB HEMATOLOGY METHOD 07/08/2025 9:04 PM EDT [facility] Platelet Count 329 155 - 369 10*3/uL LAB HEMATOLOGY METHOD 07/08/2025 9:04 PM EDT [facility] MCV 85 79 - 98 fL LAB HEMATOLOGY METHOD 07/08/2025 9:04 PM EDT [facility] MCH 27.5 26.0 - 32.0 pg LAB HEMATOLOGY METHOD 07/08/2025 9:04 PM EDT [facility] MCHC 32.4 30.7 - 35.5 g/dL LAB HEMATOLOGY METHOD 07/08/2025 9:04 PM EDT [facility] RDW 17.3(H) 11.5 - 14.5 % LAB HEMATOLOGY METHOD 07/08/2025 9:04 PM EDT [facility] MPV 10.1 8.8 - 12.5 fL LAB HEMATOLOGY METHOD 07/08/2025 9:04 PM EDT [facility] nRBC 0.0 <=0.0 per 100 WBCs LAB HEMATOLOGY METHOD 07/08/2025 9:04 PM EDT [facility] Differential Type Automated LAB HEMATOLOGY METHOD 07/08/2025 9:04 PM EDT [facility] Neutrophils % 91 % LAB HEMATOLOGY METHOD 07/08/2025 9:04 PM EDT [facility] Lymphocytes % 4 % LAB HEMATOLOGY METHOD 07/08/2025 9:04 PM EDT [facility] Monocytes % 4 % LAB HEMATOLOGY METHOD 07/08/2025 9:04 PM EDT [facility] Eosinophils % 0 % LAB HEMATOLOGY METHOD 07/08/2025 9:04 PM EDT [facility] Basophils % 0 % LAB HEMATOLOGY METHOD 07/08/2025 9:04 PM EDT [facility] Immature Granulocytes % 1 % LAB HEMATOLOGY METHOD 07/08/2025 9:04 PM EDT [facility] Neutrophils Absolute 23.61(H) 1.60 - 6.10 10*3/uL LAB HEMATOLOGY METHOD 07/08/2025 9:04 PM EDT [facility] Lymphocytes Absolute 1.15(L) 1.20 - 3.90 10*3/uL LAB HEMATOLOGY METHOD 07/08/2025 9:04 PM EDT [facility] Monocytes Absolute 0.98(H) 0.30 - 0.90 10*3/uL LAB HEMATOLOGY METHOD 07/08/2025 9:04 PM EDT [facility] Eosinophils Absolute 0.04 0.00 - 0.50 10*3/uL LAB HEMATOLOGY METHOD 07/08/2025 9:04 PM EDT [facility] Basophils Absolute 0.09 0.00 - 0.10 10*3/uL LAB HEMATOLOGY METHOD 07/08/2025 9:04 PM EDT [facility] Immature Granulocytes Absolute 0.25(H) 0.00 - 0.06 10*3/uL LAB HEMATOLOGY METHOD 07/08/2025 9:04 PM EDT [facility] Blood Venous blood specimen / Unknown Venipuncture / Unknown 07/08/2025 6:14 PM EDT 07/08/2025 6:23 PM EDT Narrative [facility] - 07/08/2025 9:04 PM EDT Therapeutic decision making should be based on absolute values, rather than percentages. us Kyle Mckinney MD LAB BLOOD ORDERABLES Fi nal Result [facility] [address] [place] [address] * (ABNORMAL) CMP (07/08/2025 6:14 PM EDT) Glucose, Plasma 411(H) 74 - 99 mg/dL 07/08/2025 7:18 PM EDT [facility] BUN, Plasma 33(H) 7 - 21 mg/dL 07/08/2025 7:18 PM EDT [facility] Creatinine, Plasma 1.99(H) 0.60 - 1.10 mg/dL 07/08/2025 7:18 PM EDT [facility] BUN/Creatinine Ratio 17 07/08/2025 7:18 PM EDT [facility] Sodium, Plasma 131(L) 136 - 145 mmol/L 07/08/2025 7:18 PM EDT [facility] Potassium, Plasma 4.0 3.6 - 4.9 mmol/L 07/08/2025 7:18 PM EDT [facility] Chloride, Plasma 93(L) 97 - 107 mmol/L 07/08/2025 7:18 PM EDT [facility] CO2, Plasma 22 22 - 29 mmol/L 07/08/2025 7:18 PM EDT [facility] Anion Gap 16 6 - 16 mmol/L 07/08/2025 7:18 PM EDT [facility] Total Calcium, Plasma 9.3 8.9 - 10.2 mg/dL 07/08/2025 7:18 PM EDT [facility] Total Protein 6.0(L) 6.3 - 7.9 g/dL 07/08/2025 7:18 PM EDT [facility] Albumin, Plasma 2.6(L) 3.5 - 5.2 g/dL 07/08/2025 7:18 PM EDT [facility] AST, Plasma 16 10 - 35 U/L 07/08/2025 7:18 PM EDT [facility] ALT, Plasma 15 10 - 35 U/L 07/08/2025 7:18 PM EDT [facility] Alkaline Phosphatase, Plasma 165(H) 35 - 104 U/L 07/08/2025 7:18 PM EDT [facility] Total Bilirubin, Plasma 0.4 0.2 - 1.1 mg/dL 07/08/2025 7:18 PM EDT [facility] eGFRcr 30.3 mL/min/1.7 3m*2 07/08/2025 7:18 PM EDT [facility] Comment:Reported eGFRcr in m L/min/1.73m2 is based the CKD-EPI 2020 equation that does not use a race coefficient. 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) DM (diabetes mellitus) (CMS/[facility]) Type II or unspecified type diabetes mellitus without mention of complication, not stated as uncontrolled Hidradenitis Smoker Tobacco use disorder Necrotizing fasciitis ([facility]/HCC) Necrotizing fasciitis documented in this encounter Admitting Diagnoses Diagnosis Necrotizing fasciitis ([facility]/HCC) Necrotizing fasciitis documented in this encounter Administered [...] on Tue07/08/25 at 1815, Until Discontinued, STAT New Bag [...] MAR Action Action Date Dose Rate Site sodium hypochlorite ([employer] (QUARTER-Strength)) external solution As needed, Starting on Tue07/08/25 at 2258, Until Tue07/08/25 at 2327, Routine Given 07/08/2025 10:58 PM EDT 1 Application Other documented in this encounter Active and Recently [...] on Tue07/08/25 at 2300, Until Discontinued, Routine 2105 (Continued from OR - Provider: Richard Betts CRNA)2110 (New Bag - Provider: Richard Betts CRNA) 0055 (New Bag - Provider: Cheyanne Briceño RN - Comment: rescheduled by pharmacy)0830 (Due - Provider: Jonah Barnrad PharmD)1630 (Due - Provider: Jonah Barnard PharmD) [...] on Tue07/09/25 at 0015, Until Discontinued, Routine 31 (New Bag - Provider: Cheyanne Briceño RN) insulin regular in sodium chloride 0.9 % 1 UNIT/ML infusion (Standard Insulin Protocol) 0.5-30 Units/hr (0.5-30 mL/hr), Intravenous, Titrated, Starting on Tue07/08/25 at 2145, Until Discontinued, Routine 2057 (New Bag - Provider: Richard Betts CRNA)2334 (Continued from [...] on Tue07/08/25 at 1815, Until Discontinued, STAT 1815 (New Bag - Provider: Faviola Vann PharmD)2008 (Continued by Anesthesia - Provider: Richard Betts CRNA)2029 (Rate/Dose Change - Provider: Richard Betts CRNA)2113 (Rate/Dose Change - Provider: Richard Betts CRNA)2123 (Rate/Dose Change - Provider: Richard Betts CRNA)2131 (Rate/Dose Change - Provider: Richard Betts CRNA)2247 (Rate/Dose Change - Provider: Richard Betts CRNA)233 (Continued from [...] Briceño RN)0319 (Rate/Dose Change - Provider: Mary Cotto RN)0326 (Rate/Dose Change - Provider: Sherrill Marie RN)0350 (Rate/Dose Change - Provider: Cheyanne Briceño RN)0447 (Rate/Dose Change - Provider: Cheyanne Briceño RN)0522 (New Bag - Provider: Cheyanne Briceño RN) propofol (Diprivan) infusion 10 mg/mL 10-50 mcg/kg/min 177 kg (10.62-53.1 mL/hr), Intravenous, Titrated, Starting on Tue07/09/25 at 0015, Until Discontinued, Routine 2333 (Continued from OR - Provider: Cheyanne Briceño [...] 2 hour PRN, Starting on Tue07/08/25 at 2052, Until Discontinued, Routine, if FSBS => 301 [...] documented as of this encounter Care Teams Health Educator Relationship Specialty Start Date End Date Yenny Dhillon APRN [address] [place] [address] PCP - General 07/22/23 documented as of this encounter
--- OUTSIDE RECORDS SUMMARY | 2025-07-08 20:09 | XMS_ITS | Encounter Summary ---
Author Organization Healthcare Address [address] [place] [address] Care Team Providers Care Technical Assistant Name Role Phone DhillonYenny whyte GLORIA Primary Care Provider [phone] Encounter Details Date Type Department Care Team (Late st Contact Info) Description 07/08/2025 8:09 PM EDT Anesthesia Event [facility] [address] [place] [address] Yadi Goel MD [address] [place] [phone] Jesse Montes MD [address] [place] [address] Anesthesia Record Procedure Summary Procedure Name Responsible Anesthesiologist Anesthesia Start Time Anesthesia Stop Time IRRIGATION AND DEBRIDEMENT, WOUND (Right) Yadi Goel MD 07/08/25200807/08/25 2335 Events Date Time Event Comment 07/08/2025 1922008 An Start The patient was reevaluated immediately before sedation and remains eligible for anesthesia plan. 2012 In Room 2013 An Start Data 2025 An Induction The patient was reevaluated immediately before moderate or deep sedation use and before anesthesia induction. 2027 An Intubation 2042 Anesthesia Ready 2100 Proc Start 2317 Proc Fin 2322 an stop data 2326 Out of Room 2334 Handoff to Receiving I compl eted my handoff to the receiving clinician during which we: 1. Identified the patient 2. Identified the responsible provider 3. Reviewed the pertinent medical history 4. Discussed the surgical course 5. Reviewed intra-op anesthesia management and issues during anesthesia 6. Set expectations for post-procedure period 7. Allowed opportunity for questions and acknowledgement of understanding. 2335 An Stop Meds Name Total fentaNYL (Sublimaze) [...] infusion 1,000 mL * Agents Name O2 * Blood Name Total PRBC 700 mL FFP 600 mL Lines, Drains, and Airways Type Details Placement Removal Peripheral IV Placement Date: 12/01; Placement Time: 0000; Catheter Size: 18 G; Orientation: Right; Location: Antecubital 07/08/25 0000 by Kadi Bustamante RN Peripheral IV Placement Date: 12/01; Placement Time: 1851; Catheter Size: 18 G; Orientation: Left; Location: Antecubital 07/08/251851 by Kadi Bustamante RN Arterial Line Placement Date: 12/01; Placement Time: 2021 (created via procedure documentation); Size: 20 G; Orientation: Right; Location: Radial; Inserted by: Anesthesiologist; Securement: Taped 07/08/252021 by Yadi Goel MD ETT Placement Date: 12/01; Placement Time: 2027 (created via procedure documentation); Mask Ventilation: 0; Technique: Direct laryngoscopy; Type: ETT - single; Single Lumen Tube Size: 7.5 mm; Cuffed: Yes; Laryngoscope: Davis; Blade Size: 2; Location: Oral; Grade View: Grade I; Insertion Attempts: 1; Placement Verification: Auscultation, Capnometry; Airway Comments: Atraumatic. No change to dentition. ; Placed by: FLEXBOARD OPERATOR 07/08/252027 by Richard Betts CRNA Urethral Catheter Placement Date: 12/01; Placement Time: 2033; Inserted by: KEYLA WHITFIELD; Type: Temperature probe; Size: 16 Fr.; Balloon Size: 10 mL; Urine Returned: Yes 07/08/252033 by Ema Antoine RN CVC Triple Lumen Placement Date: 12/01; Placement Time: 2036 (created via procedure documentation); Hand Hygiene: Yes; Site Prep: Chlorhexidine ; Site Prep Agent Dried: Yes; Sterile Barrier Used: Yes; Size: 7 Fr; Description: I placed cvp personally ; Line Length(cm): 20; Orientation: Right; Location: Internal jugular; Placement Verification: Blood return, Ultrasound 07/08/252036 by Yadi Goel MD Wound 07/08/25; 2108; Y; Y es; Infection; Necrotizing; Leg; Right, Upper, Inner 07/08/252108 by Ema Antoine RN documented in this encounter Social History [...] No Risk Indicated 07/08/2025 11:34 PM EDT Kameron edward, Cheyanne Bernard RN * Question Answer Date of Assessment [...] and Staff Patient location during procedure: OR FLEXBOARD OPERATOR: Richard Betts CRNA Performed: FLEXBOARD OPERATOR Patient Condition Indications for airway management: anesthesia [...] original note were not included. Anesthesiologist: (Unknown) FLEXBOARD OPERATOR: (Unknown) Bulk Sealer: (Unknown) Patient: Ashley Brown HPI: Ashley Brown [...] 12 months PFTs No results found for: [id number] , GCV2LFZT , IUX7VYO , FVCPRED IMAGING: No results found. PRIOR [...] 3 - emergent Plan was reviewed with: FLEXBOARD OPERATOR Anesthesia technique(s) discussed with the patient/family: general [...] on file documented as of this encounter Procedures Procedure Name Priority Date/Time Associated Diagnosis Comments ANESTHESIA ULTRASOUND GUIDED Routine 07/08/2025 8:37 PM EDT PB ANESTHESIA NON-TIMED PROCEDURE PLACEHOLDER Routine 07/08/2025 8:37 PM EDT [place] AN CENTRAL LINE TRIPLE LUMEN Routine 07/08/2025 8:37 PM EDT PB ANESTHESIA PLACEHOLDER Routine 07/08/2025 8:28 PM EDT OK AN ELECTIVE ENDOTRACHEAL AIRWAY Routine 07/08/2025 8:28 PM EDT ANESTHESIA ARTERIAL LINE PLACEMENT Routine 07/08/2025 8:22 PM EDT documented in this encounter Results * [place] AN CENTRAL LINE TRIPLE LUMEN, PB ANESTHESIA NON-TIMED PROCEDURE PLACEHOLDER, ANESTHESIA ULTRASOUND GUIDED (07/08/2025 8:37 PM EDT) Yadi Hills MD - 07/08/2025 8:37 PM EDT Yadi [...] MD ANESTHESIA ORDERABLES Final R esult * [place] AN ELECTIVE ENDOTRACHEAL AIRWAY, PB ANESTHESIA PLACEHOLDER (07/08/2025 8:28 PM EDT) Richard Malin CRNA - 07/08/2025 8:28 PM EDT Richard Betts CRNA 07/08/2025 8:39 PM Airway Date/Time: 07/08/2025 8:28 PM Reason: elective Airway not difficult General Information and Staff Patient location during procedure: OR FLEXBOARD OPERATOR: Richard Betts CRNA Performed: FLEXBOARD OPERATOR Patient Condition Indications for airway management: anesthesia [...] Additional Comments Atraumatic. No change to dentition. us Yadi Goel MD ANESTHESIA ORDERABLES Final R esult * PB ANESTHESIA NON-TIMED PROCEDURE PLACEHOLDER (07/08/2025 8:22 PM EDT) Narrative Yadi Goel MD - 07/08/2025 8:22 PM EDT Yadi [...] on filedocumented in this encounter Administered Medications Active Administered Medications - up to 3 most recent administrations Medication Order MAR Action Action Date Dose Rate Site cefepime (Maxipime) 2 g in sodium chloride 0.9% 100 mL IVPB (vial adapter required) 2 g, Intravenous, Every 8 hours, First dose on Tue07/08/25 at 2330, Until Discontinued, Routine New Bag 07/09/2025 12:26 AM EDT 2 g 36.7 mL/ hr New Bag 07/08/2025 9:09 PM EDT 2 g insulin regular in sodium chloride 0.9 % [...] 2:16 AM EDT 9 Units/hr 9 mL/hr metroNIDAZOLE (Flagyl) IVPB 500 mg 500 [...] AM EDT 0.16 mcg/kg/min 53 .1 mL/hr Inactive Administered Medications - up to 3 most recent administrations Medication Order MAR Action Action Date Dose Rate Site calcium chloride 10 % injection Intravenous, As needed, Starting on Tue07/08/25 at 2222, Until Tue07/08/25 at 2342, Routine, Anesthesia Intraprocedure Given 07/08/2025 10:56 PM EDT 0.5 g Given 07/08/2025 10:22 PM EDT 0.5 g etomidate (Amidate) injection Intravenous, As needed, Starting on Tue07/08/25 at 2026, Until Tue07/08/25 at 2342, Routine, Anesthesia Intraprocedure Given 07/08/2025 8:26 PM EDT 20 mg fentaNYL (Sublimaze) injection Intravenous, As needed, Starting on Tue07/08/25 at 2026, Until Tue07/08/25 at 2342, Routine, Anesthesia Intraprocedure Given 07/08/2025 9:09 PM EDT 100 mcg Given 07/08/2025 8:26 PM EDT 150 mcg ketamine (Ketalar) injection Intravenous, As needed, Starting [...] Given 07/08/2025 8:26 PM EDT 160 mg phenylephrine in NS (Bebeto-Synephrine) 100 mcg/mL prefilled [...] documented as of this encounter Care Teams Technical Assistant Relationship Specialty Start Date End Date Yenny Dhillon APRN [address] [place] [address] PCP - General 07/22/23 documented as of this encounter
--- OUTSIDE RECORDS SUMMARY | 2025-07-09 06:24 | XMS_ITS | Encounter Summary ---
Author Organization Healthcare Address [address] [place] [address] Care Team Providers Care Panel Gluer Name Role Phone Yenny Dhillon APRN Primary Care Provider [phone] Encounter Details Date Type Department Care Team (Latest Contact Info) Description 07/09/2025 Travel Social History Tobacco Use Types Packs/Day Years [...] Diagnoses Not on filedocumented in this encounter Additional Health Concerns Assessment Noted Time PHQ-9 Depression Total Score: 16 023 9:36 AM EDT A fall risk assessment has been complete d for the patient 08/31/2023 9:38 AM EDT A Body Mass Index follow-up plan has been documented for the patient 02/29/2024 10:30 AM EDT documented as of this encounter Care Teams Panel Gluer Relationship Specialty Start Date End Date Yenny Dhillon APRN [address] [place] [address] PCP - General 07/22/23 documented as of this encounter
--- OUTSIDE RECORDS SUMMARY | 2025-07-09 06:24 | XMS_ITS | Encounter Summary ---
Author Organization Healthcare Address [address] [place] [address] Care Team Providers Care Telecasting Technician Name Role Phone DhillonYenny whyte Lit CASTRO Primary Care Provider [phone] Encounter Details Date Type Department Care Team (Latest Contact Info) Description 07/08/2025 Travel Social History Tobacco Use Types Packs/Day [...] Briceño RN documented as of this encounter Plan of [...] documented as of this encounter Care Teams Telecasting Technician Relationship Specialty Start Date End Date Yenny Dhillon APRN [address] [place] [address] PCP - General 07/22/23 documented as of this encounter
--- OUTSIDE RECORDS SUMMARY | 2025-07-09 06:25 | XMS_ITS | Clinical Summary ---
Author Organization Healthcare Address [address] [place] [address] Care Team Providers Care Research Analyst Name Role Phone AlejoYenny Lit CASTRO Primary Care Provider [phone] Allergies Active Allergy Reactions Criticality Noted Date [...] by mouth twice a day. 02/20/20 22 Suspended busPIRone (Buspar) 10 MG tablet Take 1 tablet (10 mg) by mouth twice a day. Suspended valsartan-hydro CHLOROthiazide (Diovan-HCT) 320-12.5 MG tablet Take 1 tablet by mouth 1 (one) time each day. 12/13/19 23 Suspended Vitamin E 180 MG (400 UNIT) capsule 06/20/20 23 Suspended Ozempic, 1 MG/DOSE, 4 MG/3ML solution pen-injector INJECT 1 MG SUBCUTANEOUSLY ONCE A WEEK ON THE SAME DAY EACH WEEK 08/15/20 23 Suspended rosuvastatin (Crestor) 20 MG tablet Take 1 tablet (20 mg) by mouth 1 (one) time each day. 07/23/20 23 Suspended nitrofurantoin, macrocrystal-mo nohydrate, (Macrobid) 100 MG capsule TAKE 1 CAPSULE BY MOUTH EVERY 12 HOURS WITH FOOD 07/14/20 23 Suspended naproxen (Naprosyn) 500 MG tablet Take 1 tablet (500 mg) by mouth 2 (two) times a day with meals. 07/26/20 23 Suspended montelukast (Singulair) 10 MG tablet Take 1 tablet (10 mg) by mouth 1 (one) time each day. 08/03/20 23 Suspended Misc Natural Products (Osteo Bi-Flex Adv Triple St) tablet Take 1 tablet by mouth twice a day. Suspended Procto-Med HC 2.5 % rectal cream APPLY A THIN LAYER OF CREAM TO AFFECTED AREA(S) 2-4 TIMES DAILY 06/13/20 23 Suspended folic acid (Folvite) 1 MG tablet Take 1 tablet (1 mg) by mouth 1 (one) time each day. 02/15/20 23 Suspended fluticasone (Flonase) 50 MCG/ACT nasal spray Administer 2 sprays into affected nostril(s) twice a day. 11/16/19 22 Suspended escitalopram (Lexapro) 5 MG tablet Take 1 tablet (5 mg) by mouth 1 (one) time each day. as directed 08/18/20 23 Suspended DULoxetine (Cymbalta) [address] capsule Take 2 capsules (60 mg) by mouth 1 (one) time each day. 08/18/20 23 Suspended Docusate Sodium (DSS) 100 MG capsule Take 200 mg by mouth 1 (one) time each day. Suspended cholecalciferol (Vitamin D-3) 5,000 Units tablet 01/18/20 23 Suspended polycarbophil (EQ Fiber Therapy) 625 MG tablet 05/12/20 20 Suspended budesonide-form oterol (Symbicort) 160-4.5 MCG/ACT inhaler 02/09/20 22 Suspended Linzess 72 MCG capsule capsule 02/28/20 24 Suspended cephalexin (Keflex) 500 MG capsule TAKE 1 CAPSULE BY MOUTH 4 TIMES DAILY 02/21/20 24 Suspended mirabegron ER (Myrbetriq) 25 MG tabletIndicatio ns:Urge incontinence Take 1 tablet by mouth daily. 30 tablet 3 03/22/20 25 025 Suspended Active Problems Problem Noted Date Diagnosed Date Necrotizing fasciitis 07/08/2025 Assessment & Plan (07/08/2025 7:44 PM EDT): Concern for acute infection WBC 26 Got 3L fluids and needed pressors at OSH prior to transfer To OR this evening as A Likely ICU post op IV antibiotics Resuscitation Marked and consented DM (diabetes mellitus) 07/08/2025 Hidradenitis 07/08/2025 Hidradenitis suppurativa 08/31/2023 023 History of hysterectomy 08/31/2023 08/31/20 HTN (hypertension), benign 08/31/202308/31 Pharyngitis 08/31/2023 08/31/2023 [...] three months Type 2 diabetes mellitus 02/15/2022 023 Overview (08/31/2023): Last Assessment & Plan: Condition: [...] Encounters Date Type Department Care Team Description 07/09/2025 Travel 07/08/2025 8:09 PM EDT Anesthesia Event [facility] [address] [place] [phone] Yadi Goel MD Johnson, Chandler B, MD 07/08/2025 8:00 PM EDT - 07/08/2025 9:30 PM EDT Surgery [facility] [address] [place] [phone] Brittany Crawford MD IRRIGATION AND DEBRIDEMENT, WOUND [[id number] (CPT )] 07/08/2025 5:58 PM EDT - Present Hospital Encounter [facility] [address] [place] [phone] Kyle Mckinney MD Rodriguez, Rachel D, MD Necrotizing fasciitis (CMS/HCC) (Primary Dx); 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) 07/08/2025 Travel from Last 3 Months Family History Medical [...] Mass Index 56.12 07/08/2025 6:05 PM EDT Plan of Treatment Health Maintenance Due Date Last Done Comments [facility]-Diabetes: Hemoglobin A1C 1975 [facility]-Infant/Child/Adol SDOH Screenings 1975 Diabetes: Dental [...] 2021 Sigmoidoscopy 2021 [facility]-Colorectal Cancer Screening 2021 [facility]-Depression Screening 02/28/2025 024, 08/31/2023 [id number] Vaccine (1 - season) 2025 [facility]-Influenza Vaccine (#1) 2025 10/11/2024 [facility]-Zoster Vaccines (1 of 2) 2026 [facility]-Obesity Intervention Completed 024, 08/31/2023 [facility]-HIV Screening Completed 07/08/2025 [facility]-Hepatitis C Screening Completed 07/08/2025 HPV Vaccines Aged Out No longer eligi [...] on patient's age to complete this topic Procedures * The patient is currently admitted. The information in this section might not be complete until the patient is discharged. Procedure Name Priority Date/Time Associated Diagnosis Comments POCT GLUCOSE METER UNSOLICITED RESULTS Routine 07/09/2025 6:05 AM EDT PHOSPHORUS, PLASMA Routine 07/09/2025 4: 57 AM EDT MAGNESIUM, PLASMA Routine 07/09/2025 4:5 7 AM EDT BASIC METABOLIC PANEL, PLASMA Routine 07/09/2025 4:57 AM EDT CBC W/O DIFFERENTIAL Routine 07/09/2025 4:57 AM EDT POCT GLUCOSE [...] / INR STAT 07/08/2025 11:53 PM EDT PHOSPHORUS, PLASMA STAT 07/08/2025 11 :52 PM EDT MAGNESIUM, PLASMA STAT 07/08/2025 11: 52 PM EDT BASIC METABOLIC PANEL, PLASMA STAT 07/08/2025 11:52 PM EDT CBC W/O DIFFERENTIAL STAT 07/08/2025 11:52 PM EDT BLOOD GAS [...] UNSOLICITED RESULTS Routine 07/08/2025 8:51 PM EDT ANESTHESIA ULTRASOUND GUIDED Routine 07/08/2025 8:37 PM EDT PB ANESTHESIA NON-TIMED PROCEDURE PLACEHOLDER Routine 07/08/2025 8:37 PM EDT MI AN CENTRAL LINE TRIPLE LUMEN Routine 07/08/2025 8:37 PM EDT PB ANESTHESIA PLACEHOLDER Routine 07/08/2025 8:28 PM EDT MI AN ELECTIVE ENDOTRACHEAL AIRWAY Routine 07/08/2025 8:28 PM EDT ANESTHESIA ARTERIAL LINE PLACEMENT Routine 07/08/2025 8:22 PM EDT ED HIV 1/2 ANTIBODY/ANTIGEN SCREEN WITH REFLEX TO HIV I/II DIFFERENTIATION STAT 07/08/2025 6:14 PM EDT ED PROTOCOL HIV 1/2 ANTIBODY/ANTIGEN SCREEN W/REFLEX TO HIV 1/2 ANTIBODY DIFFERENTIATION STAT 07/08/2025 6:14 PM EDT HEPATITIS C ANTIBODY - ED W/REFLEX TO HCV QUANT PCR STAT 07/08/2025 6:14 PM EDT C-REACTIVE PROTEIN, PLASMA STAT 07/08/2025 6:14 PM EDT LACTATE, VENOUS STAT 07/08/2025 6:14 PM EDT TYPE AND SCREEN STAT 07/08/2025 6:14 PM EDT PROTHROMBIN TIME(PT) / INR STAT 07/08/2025 6:14 PM EDT CBC WITH AUTO DIFFERENTIAL STAT 07/08/2025 6:14 PM EDT COMPREHENSIVE METABOLIC PANEL, PLASMA STAT 07/08/2025 6:14 PM EDT MI CRITICAL CARE, E/M 30-74 MINUTES Routine 07/08/2025 5:58 PM EDT from Last 3 Months Results * (ABNORMAL) POCT glucose meter (07/09/2025 6:05 AM EDT) Only the most recent of6 resultswithin the time period is included. [facility] POCT Glucose 196(H) 74 - 99 mg/dL [...] Comment 07/09/2025 6:20 AM EDT [facility] Grill Attendant ID Cheyanne Briceño 07/09/2025 6:20 AM EDT [facility]ARE LAB Device ID [id number] 07/09/2025 6:20 AM EDT [facility] Specimen Type POC Arterial 07/09/2025 6:20 AM EDT [facility] Blood Arterial blood specimen / Unknown 07/09/2025 6:05 AM EDT 07/09/2025 6:20 AM EDT us Brittany Crawford MD LAB POINT OF CARE TEST DOCKED DEVICE UNSOLICITED RESULTS Final Result [facility] [address] [place] [id number] * (ABNORMAL) CBC W/O Differential (07/09/2025 4:57 AM EDT) Only the most recent of2 resultswithin the time period is included. [facility] WBC Count 32.25(H) 3.70 - 10.30 10*3/uL LAB HEMATOLOGY METHOD 07/09/2025 5:15 AM EDT [facility] RBC Count 3.89(L) 3.90 - 5.20 10*6/uL LAB HEMATOLOGY METHOD 07/09/2025 5:15 AM EDT [facility] HGB 11.0(L) 11.2 - 15.7 g/dL LAB HEMATOLOGY METHOD 07/09/2025 5:15 AM EDT [facility] HCT 33.4(L) 34.0 - 45.0 % LAB HEMATOLOGY METHOD 07/09/2025 5:15 AM EDT [facility] Platelet Count 358 155 - 369 10*3/uL LAB HEMATOLOGY METHOD 07/09/2025 5:15 AM EDT [facility] MCV 86 79 - 98 fL LAB HEMATOLOGY METHOD 07/09/2025 5:15 AM EDT [facility] MCH 28.3 26.0 - 32.0 pg LAB HEMATOLOGY METHOD 07/09/2025 5:15 AM EDT [facility] MCHC 32.9 30.7 - 35.5 g/dL LAB HEMATOLOGY METHOD 07/09/2025 5:15 AM EDT [facility] RDW 17.4(H) 11.5 - 14.5 % LAB HEMATOLOGY METHOD 07/09/2025 5:15 AM EDT [facility] MPV 10.0 8.8 - 12.5 fL LAB HEMATOLOGY METHOD 07/09/2025 5:15 AM EDT [facility] nRBC 0.0 <=0.0 per 100 WBCs LAB HEMATOLOGY METHOD 07/09/2025 5:15 AM EDT [facility] Blood Arterial blood specimen / Unknown Venipuncture / Unknown 07/09/2025 4:57 AM EDT 07/09/2025 5:07 AM EDT us Brittany Crawford MD LAB BLOOD ORDERABLES Final Result [facility] [address] [place] [address] * Phosphorus (07/09/2025 4:57 AM EDT) Only the most recent of2 resultswithin the time period is included. Phosphorus, Plasma 4.1 2.5 - 4.5 mg/dL 07/09/2025 5:35 AM EDT [facility] Blood Arterial blood specimen / Unknown Venipuncture / Unknown 07/09/2025 4:57 AM EDT 07/09/2025 5:06 AM EDT Brittany Crawford MD LAB BLOOD ORDERABLES Final Result Performing Organization Address [facility] Co de Phone Number [facility] [address] [place] [address] * Magnesium, Plasma (07/09/2025 4:57 AM EDT) Only the most recent of2 resultswithin the time period is included. Magnesium, Plasma 2.2 1.9 - 2.4 mg/dL 07/09/2025 5:35 AM EDT [facility] Blood Arterial blood specimen / Unknown Venipuncture / Unknown 07/09/2025 4:57 AM EDT 07/09/2025 5:06 AM EDT Brittany Crawford MD LAB BLOOD ORDERABLES Final Result Performing Organization Address [facility] de Phone Number [facility] [address] [place] [address] * (ABNORMAL) Basic Metabolic Panel, Plasma (07/09/2025 4:57 AM EDT) Only the most recent of2 resultswithin the time period is included. Glucose, Plasma 235(H) 74 - 99 mg/dL 07/09/2025 5:35 AM EDT [facility] BUN, Plasma 30(H) 7 - 21 mg/dL 07/09/2025 5:35 AM EDT [facility] Creatinine, Plasma 1.58(H) 0.60 - 1.10 mg/dL 07/09/2025 5:35 AM EDT [facility] BUN/Creatinine Ratio 19 07/09/2025 5:35 AM EDT [facility] Sodium, Plasma 136 136 - 145 mmol/L 07/09/2025 5:35 AM EDT [facility] Potassium, Plasma 3.5(L) 3.6 - 4.9 mmol/L 07/09/2025 5:35 AM EDT [facility] Chloride, Plasma 101 97 - 107 mmol/L 07/09/2025 5:35 AM EDT [facility] CO2, Plasma 23 22 - 29 mmol/L 07/09/2025 5:35 AM EDT [facility] Anion Gap 12 6 - 16 mmol/L 07/09/2025 5:35 AM EDT [facility] Total Calcium, Plasma 9.2 8.9 - 10.2 mg/dL 07/09/2025 5:35 AM EDT [facility] eGFRcr 40.0 mL/min/1.7 3m*2 07/09/2025 5:35 AM EDT [facility] Comment:Reported eGFRcr in m L/min/1.73m2 is based the CKD-EPI 2020 equation that does not use a race coefficient. Blood Arterial blood specimen / Unknown Venipuncture / Unknown 07/09/2025 4:57 AM EDT 07/09/2025 5:06 AM EDT us Brittany Crawford MD LAB BLOOD ORDERABLES Final Result [facility] [address] [place] [address] * XR Chest 1 View (07/09/2025 3:42 [...] XR PROCEDURES Final Re sult * (ABNORMAL) Blood gas panel, arterial (07/09/2025 2:11 AM EDT) Only the most recent of3 resultswithin the time period is included. pH, Arterial 7.25(LL) 7.35 - 7.45 LAB HEMATOLOGY METHOD 07/09/2025 2:23 AM EDT [facility] pCO2, Arterial 56(H) 35 - 48 mmHg LAB HEMATOLOGY METHOD 07/09/2025 2:23 AM EDT [facility] pO2, Arterial 67(L) 83 - 108 mmHg LAB HEMATOLOGY METHOD 07/09/2025 2:23 AM EDT [facility] SO2, Measured, Arterial 91(L) 94 - 98 % LAB HEMATOLOGY METHOD 07/09/2025 2:23 AM EDT [facility] Base Excess, Arterial -2.7(L) -2.0 - 3.0 mmol/L LAB HEMATOLOGY METHOD 07/09/2025 2:23 AM EDT [facility] Bicarbonate, Calculated, Arterial 25 22 - 26 mmol/L LAB HEMATOLOGY METHOD 07/09/2025 2:23 AM EDT [facility] Hematocrit, Whole Blood 31.5(L) 34.0 - 45.0 % LAB HEMATOLOGY METHOD 07/09/2025 2:23 AM EDT [facility] Sodium, Whole Blood 135(L) 136 - 145 mmol/L LAB HEMATOLOGY METHOD 07/09/2025 2:23 AM EDT [facility] Potassium, Whole Blood 3.5(L) 3.6 - 4.9 mmol/L LAB HEMATOLOGY METHOD 07/09/2025 2:23 AM EDT [facility] Chloride, Whole Blood 103 97 - 107 mmol/L LAB HEMATOLOGY METHOD 07/09/2025 2:23 AM EDT [facility] Glucose, Whole Blood 279(H) 74 - 99 mg/dL LAB HEMATOLOGY METHOD 07/09/2025 2:23 AM EDT [facility] Ionized Calcium, Whole Blood 4.9 4.6 - 5.1 mg/dL LAB HEMATOLOGY METHOD 07/09/2025 2:23 AM EDT [facility] Lactate, Arterial, Whole Blood 1.2 0.5 - 1.6 mmol/L LAB HEMATOLOGY METHOD 07/09/2025 2:23 AM EDT [facility] Blood Arterial blood specimen / Unknown Arterial Puncture / Unknown 07/09/2025 2:11 AM EDT 07/09/2025 2:21 AM EDT us Brittany Crawford MD LAB BLOOD ORDERABLES Final Result Performing Organization Address City/[facility]/ZIP Co de Phone Number [facility] [address] [place] [address] * APTT (07/08/2025 11:53 PM EDT) aPTT 25 25 - 35 sec LAB COAGULATION METHOD 07/09/2025 12:32 AM EDT [facility] Blood Venous blood specimen / Unknown Venipuncture / Unknown 07/08/2025 11:53 PM EDT 07/08/2025 11:59 PM EDT us Brittany Crawford MD LAB BLOOD ORDERABLES Final Result Performing Organization Address City/[facility]/ZIP Co de Phone Number [facility] [address] [place] [address] * (ABNORMAL) Protime-INR (07/08/2025 11:53 PM EDT) Only the most recent of2 resultswithin the time period is included. Prothrombin Time 15.2(H) 12.0 - 14.3 sec LAB COAGULATION METHOD 07/09/2025 12:32 AM EDT [facility] INR 1.2(H) 0.9 - 1.1 LAB COAGULATION METHOD 07/09/2025 12:32 AM EDT [facility] Blood Venous blood specimen / Unknown Venipuncture / Unknown 07/08/2025 11:53 PM EDT 07/08/2025 11:59 PM EDT Narrative [facility] - 07/09/2025 12:32 AM EDT OPTIMAL INR RANGES FOR PATIENT ON ORAL ANTICOAGULANT THERAPY Prevention of venous thromboembolism INR 2.0 to 3.0 In patients with heart disease: Atrial fibrillation INR 2.0 to 3.0 Valvular heart disease INR 2.0 to 3.0 Tissue heart valves INR 2.0 to 3.0 Mechanical prosthetic valves INR 2.5 to 3.5 Prevention of recurrent TN INR 2.5 to 3.5 Brittany Crawford MD LAB BLOOD ORDERABLES Final Result [facility] [address] [place] [address] * Transfuse fresh frozen plasma (07/08/2025 10:35 PM EDT) Only the most recent of2 resultswithin the time period is included. Richard Betts CRNA BLOOD TRANSFUSION ORDERAB LES Final Result * Transfuse RBC (07/08/2025 10:29 PM EDT) Only the most recent of2 resultswithin the time period is included. Richard Betts MARINE REPORTER BLOOD TRANSFUSION ORDERAB LES Final Result * Prepare Fresh Frozen Plasma: 2 Units (07/08/2025 9:24 PM EDT) Product Code [id number] BLOO D BANK Dispense Status Transfused BLOOD BANK Blood Expiration Date [id number] BLOOD BANK Unit Number [id number] CH B LOOD BANK Product Blood Type 5100 BLOOD BANK Blood Type O+ CH BLOOD BANK Product Code [id number] CH BLOO D BANK Dispense Status Transfused BLOOD BANK Blood Expiration Date [id number] BLOOD BANK Unit Number [id number] CH B LOOD BANK Product Blood Type 5100 BLOOD BANK Blood Type O+ CH BLOOD BANK Blood Venous blood specimen / Unknown [facility] PRODUCT ORDERA BLES Final Result Performing Organization Address City/[facility] Co de Phone Number BLOOD BANK [address] [place] [address], * Prepare Leukocyte Reduced RBC: 2 Units (07/08/2025 9:23 PM EDT) Product Code [id number] CH BLOO D BANK Dispense Status Transfused BLOOD BANK Blood Expiration Date [id number] BLOOD BANK Unit Number [id number] CH B LOOD BANK Product Blood Type 5100 BLOOD BANK Blood Type O+ BLOOD BANK Crossmatch Compatible BLOOD BANK Product Code [id number] BLOO D BANK Dispense Status Transfused BLOOD BANK Blood Expiration Date [id number] BLOOD BANK Unit Number [id number] B LOOD BANK Product Blood Type 5100 BLOOD BANK Blood Type O+ BLOOD BANK Crossmatch Compatible BLOOD BANK Other [facility] PRODUCT ORDERA BLES Final Result Performing Organization Address [facility] Co de Phone Number BLOOD BANK [address] [place] [address], * (ABNORMAL) POCT arterial blood gas gem (07/08/2025 8:51 PM EDT) pH, Arterial 7.28(L) 7.35 - 7.45 07/08/2025 8:53 PM EDT [facility] pCO2, Arterial 53(H) 35 - 48 mm Hg 07/08/2025 8:53 PM EDT [facility] pO2, Arterial 152(H) 83 - 108 mm Hg 07/08/2025 8:53 PM EDT [facility] SO2, Arterial 99(H) 94 - 98 % 07/08/2025 8:53 PM EDT [facility] Base Excess, Arterial -2.3(L) -2 - 3 mmol/L 07/08/2025 8:53 PM EDT [facility] HCO3, Arterial 24.9 22 - 26 mmol/L 07/08/2025 8:53 PM EDT [facility] Total Hemoglobin, Arterial, Whole Blood 10.9(L) 11.2 - 15.7 g/dL 07/08/2025 8:[facility] Hematocrit, Arterial 33.0(L) 34.0 - 45.0 % 07/08/2025 8:53 PM EDT [facility] Sodium, Arterial 131(L) 136 - 145 mmol/L 07/08/2025 8:53 PM T [facility] Potassium, Arterial 3.8 3.6 - 4.9 mmol/L 07/08/2025 8:53 PM T [facility] Chloride, Whole Blood 98 97 - 107 mmol/L 07/08/2025 8:53 PM T [facility] Glucose, Arterial 418(H) 74 - 99 mg/dL 07/08/2025 8:53 PM EDT [facility] Ionized Calcium, Arterial 4.9 4.6 - 5.1 mg/dL 07/08/2025 8:53 PM T [facility] Lactate, Arterial 1.6 0.5 - 1.6 mmol/L 07/08/2025 8:53 PM EDT [facility] Body Temperature 37.0 Celsius 07/08/2025 8:53 PM T [facility] pH, Temp Corrected, Arterial 7.28(L) 7.35 - 7.45 07/08/2025 8:53 PM EDT [facility] pCO2, Temp Corrected, Arterial 53(H) 35 - 48 mm Hg 07/08/2025 8:53 PM T [facility] pO2, Temp Corrected, Arterial 152(H) 83 - 108 mm Hg 07/08/2025 8:53 PM EDT [facility] Grill Attendant ID Yadi Goel 07/08/2025 8:53 PM [facility] Blood, Arterial Whole blood specimen / Unknown 07/08/2025 8:51 PM EDT 07/08/2025 8:53 PM EDT us Brittany Crawford MD LAB POINT OF CARE TEST DOCKED DEVICE UNSOLICITED RESULTS Final Result [facility] [address] [place] [address] * MI AN CENTRAL LINE TRIPLE LUMEN, PB ANESTHESIA [...] MD ANESTHESIA ORDERABLES Final R esult * MI AN ELECTIVE ENDOTRACHEAL AIRWAY, PB ANESTHESIA PLACEHOLDER (07/08/2025 8:28 PM EDT) Narrative Richard Betts CRNA - 07/08/2025 8:28 PM EDT Richard Betts CRNA 07/08/2025 8:39 PM Airway Date/Time: 07/08/2025 8:28 PM Reason: elective Airway not difficult General Information and Staff Patient location during procedure: OR MARINE REPORTER: Richard Betts CRNA Performed: MARINE REPORTER Patient Condition Indications for airway management: anesthesia [...] MD ANESTHESIA ORDERABLES Final R esult * ED HIV 1/2 Antibody/Antigen Screen w/Reflex to HIV 1/2 Differentiation (07/08/2025 6:14 PM EDT) Pathologist [facility] HIV 1 & 2 Antibody/Antigen Screen Non Reactive Non Reactive 07/08/2025 7:12 PM EDT [facility] Comment:Screening for HIV 1 & 2 antibodies, and P24 antigen is NONREACTIVE. No confirmatory testing is required. Blood Venous blood specimen / Unknown Venipuncture / Unknown 07/08/2025 6:14 PM EDT 07/08/2025 6:30 PM EDT Kyle Mckinney MD LAB BLOOD ORDERABLES Fi nal Result Performing Organization Address City/[facility]/ZIP Co de Phone Number [facility] [address] [place] [address] * (ABNORMAL) Lactic acid, venous (07/08/2025 6:14 PM EDT) [facility] Lactate, Venous, Whole Blood 2.6(H) 0.5 - 2.2 mmol/L LAB HEMATOLOGY METHOD 07/08/2025 6:29 PM EDT [facility] Blood Venous blood specimen / Unknown Venipuncture / Unknown 07/08/2025 6:14 PM EDT 07/08/2025 6:23 PM EDT us Kyle Mckinney MD LAB BLOOD ORDERABLES Fi nal Result Performing Organization Address City/[facility]/ZIP Co de Phone Number [facility] [address] [place] [address] * Hepatitis C Antibody - ED (07/08/2025 6:14 PM EDT) [facility] Hepatitis C Antibody Negative Negative 07/08/2025 7:12 PM EDT [facility] Blood Venous blood specimen / Unknown Venipuncture / Unknown 07/08/2025 6:14 PM EDT 07/08/2025 6:30 PM EDT us Kyle Mckinney MD LAB BLOOD ORDERABLES Fi nal Result [facility] [address] [place] [address] * (ABNORMAL) CBC w/diff (07/08/2025 6:14 PM EDT) WBC Count 26.15(H) 3.70 - 10.30 10*3/uL LAB HEMATOLOGY METHOD 07/08/2025 9:04 PM EDT [facility] RBC Count 3.97 3.90 - 5.20 10*6/uL LAB HEMATOLOGY METHOD 07/08/2025 9:04 PM EDT [facility] HGB 10.9(L) 11.2 - 15.7 g/dL LAB HEMATOLOGY METHOD 07/08/2025 9:04 PM EDT [facility] HCT 33.6(L) 34.0 - 45.0 % LAB HEMATOLOGY METHOD 07/08/2025 9:04 PM EDT [facility] Platelet Count 329 155 - 369 10*3/uL LAB HEMATOLOGY METHOD 07/08/2025 9:04 PM EDT [facility] MCV 85 79 - 98 fL LAB HEMATOLOGY METHOD 07/08/2025 9:04 PM EDT [facility] MCH 27.5 26.0 - 32.0 pg LAB HEMATOLOGY METHOD 07/08/2025 9:04 PM EDT [facility] MCHC 32.4 30.7 - 35.5 g/dL LAB HEMATOLOGY METHOD 07/08/2025 9:04 PM EDT [facility] RDW 17.3(H) 11.5 - 14.5 % LAB HEMATOLOGY METHOD 07/08/2025 9:04 PM EDT [facility] MPV 10.1 8.8 - 12.5 fL LAB HEMATOLOGY METHOD 07/08/2025 9:04 PM EDT [facility] nRBC 0.0 <=0.0 per 100 WBCs LAB HEMATOLOGY METHOD 07/08/2025 9:04 PM EDT [facility] Differential Type Automated LAB HEMATOLOGY METHOD 07/08/2025 9:04 PM EDT [facility] Neutrophils % 91 % LAB HEMATOLOGY METHOD 07/08/2025 9:04 PM EDT [facility] Lymphocytes % 4 % LAB HEMATOLOGY METHOD 07/08/2025 9:04 PM EDT [facility] Monocytes % 4 % LAB HEMATOLOGY METHOD 07/08/2025 9:04 PM EDT [facility] Eosinophils % 0 % LAB HEMATOLOGY METHOD 07/08/2025 9:04 PM EDT [facility] Basophils % 0 % LAB HEMATOLOGY METHOD 07/08/2025 9:04 PM EDT [facility] Immature Granulocytes % 1 % LAB HEMATOLOGY METHOD 07/08/2025 9:04 PM EDT [facility] Neutrophils Absolute 23.61(H) 1.60 - 6.10 10*3/uL LAB HEMATOLOGY METHOD 07/08/2025 9:04 PM EDT [facility] Lymphocytes Absolute 1.15(L) 1.20 - 3.90 10*3/uL LAB HEMATOLOGY METHOD 07/08/2025 9:04 PM EDT [facility] Monocytes Absolute 0.98(H) 0.30 - 0.90 10*3/uL LAB HEMATOLOGY METHOD 07/08/2025 9:04 PM EDT [facility] Eosinophils Absolute 0.04 0.00 - 0.50 10*3/uL LAB HEMATOLOGY METHOD 07/08/2025 9:04 PM EDT [facility] Basophils Absolute 0.09 0.00 - 0.10 10*3/uL LAB HEMATOLOGY METHOD 07/08/2025 9:04 PM EDT [facility] Immature Granulocytes Absolute 0.25(H) 0.00 - 0.06 10*3/uL LAB HEMATOLOGY METHOD 07/08/2025 9:04 PM EDT [facility] Blood Venous blood specimen / Unknown Venipuncture / Unknown 07/08/2025 6:14 PM EDT 07/08/2025 6:23 PM EDT Narrative [facility] - 07/08/2025 9:04 PM EDT Therapeutic decision making should be based on absolute values, rather than percentages. us Kyle Mckinney MD LAB BLOOD ORDERABLES Fi nal Result [facility] [address] [place] [address] * Type and screen (07/08/2025 6:14 PM [...] ORD ERABLES Final Result Performing Organization Address [facility] Co de Phone Number BLOOD BANK [address] [place] [address], * (ABNORMAL) C-Reactive protein (07/08/2025 6:14 PM EDT) CRP, Plasma 462.2(H) <=8.0 mg/L 07/08/2025 7:18 PM EDT [facility] Blood Venous blood specimen / Unknown Venipuncture / Unknown 07/08/2025 6:14 PM EDT 07/08/2025 6:23 PM EDT Narrative [facility] - 07/08/2025 7:18 PM EDT This CRP test is appropriate for assessment of infection, systemic inflammation and/or tissue injury. To assess cardiovascular disease risk order high sensitivity CRP (CRPH). Kyle Mckinney MD LAB BLOOD ORDERABLES Fi nal Result Performing Organization Address City/[facility]/ZIP Co de Phone Number [facility] [address] [place] [address] * (ABNORMAL) CMP (07/08/2025 6:14 PM EDT) Glucose, Plasma 411(H) 74 - 99 mg/dL 07/08/2025 7:18 PM EDT [facility] BUN, Plasma 33(H) 7 - 21 mg/dL 07/08/2025 7:18 PM EDT [facility] Creatinine, Plasma 1.99(H) 0.60 - 1.10 mg/dL 07/08/2025 7:18 PM EDT [facility] BUN/Creatinine Ratio 17 07/08/2025 7:18 PM EDT [facility] Sodium, Plasma 131(L) 136 - 145 mmol/L 07/08/2025 7:18 PM EDT [facility] Potassium, Plasma 4.0 3.6 - 4.9 mmol/L 07/08/2025 7:18 PM EDT [facility] Chloride, Plasma 93(L) 97 - 107 mmol/L 07/08/2025 7:18 PM EDT [facility] CO2, Plasma 22 22 - 29 mmol/L 07/08/2025 7:18 PM EDT [facility] Anion Gap 16 6 - 16 mmol/L 07/08/2025 7:18 PM EDT [facility] Total Calcium, Plasma 9.3 8.9 - 10.2 mg/dL 07/08/2025 7:18 PM EDT [facility] Total Protein 6.0(L) 6.3 - 7.9 g/dL 07/08/2025 7:18 PM EDT [facility] Albumin, Plasma 2.6(L) 3.5 - 5.2 g/dL 07/08/2025 7:18 PM EDT [facility] AST, Plasma 16 10 - 35 U/L 07/08/2025 7:18 PM EDT [facility] ALT, Plasma 15 10 - 35 U/L 07/08/2025 7:18 PM EDT [facility] Alkaline Phosphatase, Plasma 165(H) 35 - 104 U/L 07/08/2025 7:18 PM EDT [facility] Total Bilirubin, Plasma 0.4 0.2 - 1.1 mg/dL 07/08/2025 7:18 PM EDT [facility] eGFRcr 30.3 mL/min/1.7 3m*2 07/08/2025 7:18 PM EDT [facility] Comment:Reported eGFRcr in m L/min/1.73m2 is based the CKD-EPI 2020 equation that does not use a race coefficient. Blood Venous blood specimen / Unknown Venipuncture / Unknown 07/08/2025 6:14 PM EDT 07/08/2025 6:23 PM EDT us Kyle Mckinney MD LAB BLOOD ORDERABLES Fi nal Result [facility] [address] [place] [address] * [facility], E/M 30-74 MINUTES (07/08/2025 5:58 [...] MD IN CLINIC/BEDSIDE ORDER LUANNE Final Result from Last 3 Months Insurance [facility] MEDICAID Care Teams Research Analyst Relationship Specialty Start Date End Date Yenny Dhillon APRN [address] [place] [address] PCP - General 07/22/23
== END ==
LOC: SL 06:22
PROVIDERS: PCP Nurse Practitioner; Visit Provider Nurse Practitioner
DX: G47.33 Obstructive sleep apnea (adult) (pediatric) (principal); G47.36 Sleep related hypoventilation in conditions classified elsewhere
CPT/HCPCS: G0399

== ENCOUNTER 2025-08-02 21:10 | Emergency (ER) | payer OTHER, SELFPAY ==
--- OUTSIDE RECORDS SUMMARY | 2025-07-08 17:58 | XMS_ITS | Encounter Summary ---
Author Organization [facility] Address [address] [place] [address] Care Team Providers Care Hoop Flaring Machine Operator Helper Name Role Phone Alejo Yenny Lit CASTRO Primary Care Provider [phone] Reason for Referral * Consultation (Routine) - Authorized Specialty Diagnoses / Procedures Referred By Bharati wiggins Referred To Contact Endocrinology Diagnoses Morbid (severe) obesity due to excess calories (CMS/HCC) Type 2 diabetes mellitus with hyperglycemia, without long-term current use of insulin Celiac disease Sherrill Villa APRN [address] [place] [address] Phone: tel: fax: Referral ID Status Reason Start Date Expiration Date Visits Requested Visits Authorized [id number] Authorized Specialty Services Required 07/15/2025 01/14/2027 [address] Oliva is accepting new patients. Her office is located at the [facility] Endocrinology Clinic in the [facility] Physician Building, [address], [address] For an appointment, please call . Reason for Visit * Reason Comments Wound Check * Auth/Cert (Routine) Specialty Diagnoses / Procedures Referred By Bharati wiggins Referred To Contact Diagnoses Necrotizing fasciitis (CMS/HCC) Necrotizing Fascitis Luanne Crawford MD [address] [address] Phone: tel: fax: [facility] Inpatient [address] [place] [address] Phone: tel: Referral ID Status Reason Start Date Expiration Date Visits Re quested Visits Authorized [id number] 1 1 Encounter Details Date Type Department Care Team (Late st Contact Info) Description 07/08/2025 5:58 PM EDT - 07/19/2025 12:56 PM EDT Hospital Encounter [facility] Inpatient [address] [place] [id number] My Charles MD [address] [place] [address] Luanne Crawford MD [address] [place] [phone] Dorcas Hennessy MD [address] [address] Anne Franco MD [address] [place] [phone] Necrotizing fasciitis (CMS/HCC) (Primary Dx); Necrotizing [...] any time in the past 12 m [facility], were you homeless or living in a chcf (including now)? No 07/15/2025 [facility] Utilities Answer Date Recorded In the past [...] please call our General Surgery Clinic at [phone]. If there are questions or concerns after discharge from the hospital, call Radha Ugalde, Nurse Coordinator between 7am-3pm at [phone]. If it is after hours, weekends, and holidays please call [phone] and ask for the resident documentation nurse for Emergency General Surgery. Medication requests should be made between the hours of 9:00 AM to 3:00 PM Tuesday thru Tuesday. Please note that based upon recent changes to [place] law related to prescribing opioid pain medications, [...] Outcome: Met Intervention: Promote Activity and Functional Dukes Flowsheets Taken 07/18/20252319 by Inessa Almazan, RN [...] positioning supports utilized Taken 07/14/2025 1800 by oJsi Ann RN Skin Protection: frequent weight shift encouraged weight shift assistance provided incontinence pads utilized Goal: Optimal Wound Healing Outcome: Met Intervention: Promote Wound Healing Flowsheets (Taken 07/18/2025 1600 by Josi Ann RN) Sleep/Rest Enhancement: awakenings minimized consistent schedule promoted * Progress Notes - Annie Littlejhon - 07/19/2025 9:59 AM EDT Case Management Discharge Note Cristina Escobar Kevni 50 y.o. female CSN: [id number] Admission: 07/08/2025 5:58 PM Primary Problem: Necrotizing fasciitis (CMS/HCC) Primary Health Navigator: Primary Caregiver: Self Assistance Available at Discharge: [...] [address] [place] [address] [facility] ([facility]) [address] [facility] [address] Go on 07/19/2025 Discharge Transportation: Transportation Anticipated: [...] arranged for this date at 1400 from [facility]. Annie Littlejohn * Raj Peres RN - 07/19/2025 9:44 AM EDT Images from the original note were not included. 1087 Oxycodone Oral Tablet, Immediate Release Brand Names: Oxaydo, Roxicodone What is this medicine? Oxycodone (gj-e-FNL-done) is an opioid pain reliever. It is [...] a special medication guide each time you pick and shovel worker this medicine. ? Overdosage: Taking too much [...] should report to your doctor or health certified caregiver as soon as possible: ? allergic reactions [...] attention (report to your doctor or health certified caregiver if they continue or are bothersome): ? constipation ? dry mouth ? itching ? nausea, vomiting ? upset stomach This list may not describe all possible side effects. Call your doctor for medical advice about side effects. You may report side effects to FDA at 8-506-XWE-4687. Where should I keep my medicine? This [...] location. To find a disposal location, visit [employer]/[facility]/[place]. If you cannot take unused medicine to a proper location, you can mix the medicine with coffee grounds or jose litter and dispose of in the normal trash. Your doctor may also give you a special disposal pouch for this medicine. You can also flush the medicine down the toilet. * [facility] - Raj Cardona RN - 07/19/2025 9:44 AM EDT Images from the original note were not included. [id number] Naloxone Nasal [place] WHY is this medicine prescribed? Prescription and [...] pharmacist for the instructions or visit the grain scooper's website to get the instructions. You should [...] or doctor for a copy of the grain scooper's information for the patient. Are there OTHER [...] and out of their sight and reach. https://www.Donay.The Price Wizards Dispose of unneeded medications in a way [...] of all of the prescription and nonprescription (aowj-way-klewalw) medicines, vitamins, minerals, and dietary supplements you [...] or pharmacist about specific clinical use. The [place] [employer]-System [employer] Inc. represents that the information provided hereunder was formulated with a reasonable standard of care, and in conformity with professional standards in the field. The [place] [employer]-System Pharmacists[employer] Inc. makes no representations or warranties, express or implied, including, but not limited to, any implied warranty of merchantability and/or fitness for a particular purpose, with respect to such information and specifically disclaims all such warranties. Users are advised that decisions regarding drug therapy are complex medical decisions requiring the independent, informed decision of an appropriate health certified caregiver, and the information is provided for informational purposes only. The entire monograph for a drug should be reviewed for a thorough understanding of the drug's actions, uses and side effects. The [place] [employer]-System Pharmacists[employer] Inc. does not endorse or recommend the use of any drug.The information is not a substitute for medical care. AHFS?? Patient Medication Information?. ?? Copyright, 2023. The [place] of Health-System Pharmacists??, [address], [address], [place], [place]. All Rights Reserved. Duplication for commercial use must be authorized by [facility]. Selected Revisions: May 26, 2024. AHFS?? Patient [...] of Drug Diversion Investigators (NADAJIT): http://rxdrugdropbox.org/ ? [place] Office of Drug Control Policy: http://odcp.[place].gov/Prescription+Drug+Drop+Box+Sites.htm Are [...] that tracks prescriptions of controlled substances in [place]. The DANYELLE report tells your doctor if [...] or your doctor may then call the [place] Drug Enforcement and Professional Practices Branch at .This will start an investigation of the error. * Gauri Rico - Raj Cardona RN - 07/19/2025 9:44 AM EDT Images from the original note were not included. [address]3362 Insulin: How to Use and Where to [...] Safe Community Needle Disposal at www.safeneedledisposal.org or 119-621-5896. Storing your insulin ? Keep unopened insulin [...] cold. Last Reviewed Date: 2023 00:00:00 ?? 6703-9388 The [employer]. All rights reserved. This information is not intended as a substitute for professional medical care. Always follow your healthcare professional's instructions. * [facility] - Raj Cardona RN - 07/19/2025 9:43 AM EDT Images from the original note were not included. [id number] Diet: Diabetes Food is an important tool [...] of Nutrition and Dietetics at www.eatright.org o [place] Diabetes Association at www.diabetes.org or 413-323-1766 o Association of Diabetes Care and Education Specialists at www.diabeteseducator.org/ Last Reviewed Date: 2024 00:00:00 ?? 2906-9844 The [employer]. All rights reserved. This information is not intended as a substitute for professional medical care. Always follow your healthcare professional's instructions. * Gauri Rico - Raj Cardona RN - 07/19/2025 9:43 AM EDT Images from the original note were not included. 16264 Diabetes: Understanding Carbohydrates, Fats, and Protein Food [...] Last Reviewed Date: 2024 00:00:00 ?? The [employer]. All rights reserved. This information is not intended as a substitute for professional medical care. Always follow your healthcare professional's instructions. * Gauri Rico - Raj Cardona RN - 07/19/2025 9:43 AM EDT Images from the original note were not included. 29151 Discharge Instructions: Packing a Wound You have [...] chills. Last Reviewed Date: 2025 00:00:00 ?? 1638-6720 The [employer]. All rights reserved. This information is not intended as a substitute for professional medical care. Always follow your healthcare professional's instructions. * Jodycynthia Jacky - Raj Cardona RN - 07/19/2025 9:43 AM EDT Images from the original note were not included. 72085 Negative Pressure Wound Therapy Negative pressure wound [...] device. Last Reviewed Date: 2024 00:00:00 ?? 2864-5750 The [employer]. All rights reserved. This information is not intended as a substitute for professional medical care. Always follow your healthcare professional's instructions. * Gauri Rico - Raj Cardona RN - 07/19/2025 9:43 AM EDT Images from the original note were not included. 45929 Discharge Instructions: Changing Your Dressing You are [...] doctor. Last Reviewed Date: 2025 00:00:00 ?? 5075-4317 The [employer]. All rights reserved. This information is not intended as a substitute for professional medical care. Always follow your healthcare professional's instructions. * Gauri Rico - Raj Cardona RN - 07/19/2025 9:42 AM EDT Images from the original note were not included. [id number] Abscess (Incision and Drainage) An abscess is [...] treatment. Last Reviewed Date: 2024 00:00:00 ?? 8898-9278 The [employer]. All rights reserved. This information is not intended as a substitute for professional medical care. Always follow your healthcare professional's instructions. * Gauri LouieJANETH - Raj Cardona RN - 07/19/2025 9:42 AM EDT Images from the original note were not included. 15946 Preventing a Surgical Site Infection A risk [...] of infection. ? Controlled body temperature. A nfrzb-htaz-zhqmve temperature during or after surgery prevents oxygen [...] and water or with an alcohol-based hand mail superintendent before and after caring for you. Don?t [...] away. Last Reviewed Date: 2024 00:00:00 ?? 5941-2737 The [employer]. All rights reserved. This information is not [...] to the condition itself. It comes from Sri Lankan and Latin words for a gnawing sore [...] questions. Last Reviewed Date: 2023 00:00:00 ?? 3043-7172 The [employer]. All rights reserved. This information is not intended as a substitute for professional medical care. Always follow your healthcare professional's instructions. * Discharge Summary - DajuanBecky, BORING MACHINE OPERATOR HELPER - 07/19/2025 9:31 AM EDT Images from the original note were not included. Hospitalization Admit Date/Time: 07/08/2025 5:58 PM Admitting Attending: Luanne Crawford Discharge Date: 07/19/25 Discharge Attending Physician: Anne Franco MD PCP name and Address: Yenny Dhillon, BORING MACHINE OPERATOR HELPER [address] [facility] [facility] / [place] [address] Referring provider name and address: Keaton Patel MD [address] [place] [address] Chief Concern, Brief History of Present Illness, and Hospital Course Cristina Brown is a 50 y.o. female with PMH of DM, hidradenitis supparativa, current smoker (1.5ppd), hx of absent seizures, UTI, depression, anxiety, asthma, HLD, celiac disease, presenting to [facility] on 07/08/2025 as transfer with concern [...] Right groin wound exploration and washout 07/11 ([facility]) Right groin/perineum/thigh/abdominal wound exploration and washout Follow [...] stay, and so will be discharged to [facility]. Surgeries and Procedures Procedures performed in this [...] Your Medications These medications were sent to [facility] - [place], [place] - [address] [facility] [address] naloxone 4 mg/0.1 mL nasal spray Information [...] Overview Addendum 07/12/2025 1:54 PM by Gabriel eSgovia - Presented to with right medial thigh [...] apnea) Overview Signed 07/11/2025 9:28 AM by Gabreil Segovia -CPAP at night as needed Postoperative [...] dressing in place, sutures removed on rounds. [facility] can re- apply negative pressurewound therapy: Wound [...] please call our General Surgery Clinic at [phone]. If there are questions or concerns after discharge from the hospital, call Radha Ugalde, Nurse Coordinator between 7am-3pm at [phone]. If it is after hours, weekends, and holidays please call [phone] and ask for the resident documentation nurse for Emergency General Surgery. Medication requests should be made between the hours of 9:00 AM to 3:00 PM Tuesday thru Tuesday. Please note that based upon recent changes to [place] law related to prescribing opioid pain medications, [...] normal. Judgment: Judgment normal. Discharge Disposition/Condition Disposition: [facility] Condition: Stable (s/sx potential problems absent [...] HLD, celiac disease who initially came to [facility] on 07/08/2025 as transfer with concern [...] to establish care with endocrine provider in [place], [place]. --> Provided patient with address and number of clinic. [[facility] Endocrinology Clinic in the [facility] Physician Building]. -Tentative discharge recommendations: Likely [...] team via secure chat orpage us at [phone] during 7a-7p, Tuesday-Tuesday. For after hours please [...] 7:08 AM EDT Associated Problem(s): Necrotizing fasciitis ([facility]) - 07/09: debridement of necrotizing fasciitis in [...] AM EDT Associated Problem(s): DM (diabetes mellitus) (CMS/[facility]) - Patient presenting with significant hyperglycemia, requiring [...] Associated Problem(s): Chronic obstructive pulmonary disease, unspecified (CMS/HCC) Complicates care. Continue Albuterol and DuoNebs. 3L [...] and newly diagnosed JOSEP who presented to [facility] with leukocytosis and exam findings consistent with [...] 07/17/25 18507/17/25 1900 - 07/18/25 0659 07/18/25 0700 - 07/18/25 1859 07/18/25 1900 - 07/19/25 [...] last 7 days Lab Units 07/19/25 0428 07/18/25 0603 07/17/25 0520 HEMOGLOBIN g/dL 9.6* 9.1* 9.2* HEMATOCRIT % 30.7* 28.8* 29.4* INR Cr Results from last 7 days Lab Units 07/19/25 0428 07/18/25 0603 07/17/25 0520 CREATININE mg/dL 0.73 0.65 [...] the brett pad. After discussion with chief documentation nurse, decision was made to remove the [place] and place a yhh-mrs-kqhxezfc with Kerlix, Polymem, ABD pads, and skin [...] and Optimize Oral Intake Flowsheets (Taken 07/18/2025 1600) Oral Nutrition Promotion: calorie-dense foods provided rest periods promoted Nutrition Interventions: frequent small meals provided supplemental drinks provided Problem: Infection Goal: Absence of Infection Signs and Symptoms Outcome: Ongoing, Progressing Intervention: Prevent or Manage Infection Flowsheets (Taken 07/18/2025 1600) Infection Management: aseptic technique maintained Fever Reduction/Comfort Measures: lightweight bedding Isolation Precautions: precautions maintained Problem: Fall Injury Risk Goal: Absence of Fall and Fall-Related Injury Outcome: Ongoing, Progressing Problem: Self-Care Deficit Goal: Improved Ability to Complete Activities of Daily Living Outcome: Ongoing, Progressing Problem: Wound Goal: Optimal Coping Outcome: Ongoing, Progressing Intervention: Support Patient and Family Response Flowsheets (Taken 07/18/2025 1600) Supportive Measures: active listening utilized self-care encouraged positive reinforcement provided Family/Support System Care: support provided Goal: Optimal Functional Ability Outcome: Ongoing, Progressing Intervention: Optimize Functional Ability Flowsheets (Taken 07/18/2025 1600 by Monique Jacques) Activity Management: activity adjusted per tolerance Activity Assistance Provided: assistance, stand-by Assistive Device Utilized: front wheel walker Goal: Absence of Infection Signs and Symptoms Outcome: Ongoing, Progressing Intervention: Prevent or Manage Infection Flowsheets (Taken 07/18/2025 1600) Infection Management: aseptic technique maintained Fever Reduction/Comfort Measures: lightweight bedding Isolation Precautions: precautions maintained Goal: Improved Oral Intake Outcome: Ongoing, Progressing Intervention: Promote and Optimize Oral Intake Flowsheets (Taken 07/18/2025 1600) Nutrition Support Management: weight trending reviewed Oral Nutrition Promotion: calorie-dense foods provided rest periods promoted Nutrition Interventions: frequent small meals provided supplemental drinks provided Goal: Optimal Pain Control and Function Outcome: Ongoing, Progressing Intervention: Prevent or Manage Pain Flowsheets (Taken 07/18/2025 1600) Pain Management Interventions: medication (see MAR) care clustered emotional support Sleep/Rest Enhancement: awakenings minimized consistent schedule promoted Goal: Skin Health and Integrity Outcome: Ongoing, Progressing Intervention: Optimize Skin Protection Flowsheets Taken 07/18/2025 1600 by Monique Jacques Activity Management: activity adjusted per tolerance Head of Bed (HOB) Positioning: HOB elevated Taken 07/18/2025 1600 by Josi Ann, RN Pressure Reduction Techniques: [...] Note Cristina Brown 50 y.o. female CSN: [id number] Admission: 07/08/2025 5:58 PM Primary Problem: Necrotizing fasciitis (CMS/HCC) Anticipated Discharge Date: 07/19/25 Has Discharge Plans Changed? Yes [facility] Acute Rehab Medicare Second Notice: Housing Circumstances: Low Income ( 101-300% Federal Poverty Guideline) Housing Circumstances Action Taken: Medically Ready for Discharge: Anticipated Tomorrow Additional Comments Per the MD pt is medically ready to d/c after she can tolerate her wv being changed without IV painmedication. SW talked with the pt and she is agreeable to go to [facility] however she still has a lot of [...] the MD team. Pt will transfer to [facility] via shuttle on 07/19 if all needs [...] (H) 07/16/2025 I reviewed bg tracing in [facility] glucose timeline 07/18/25 ASSESSMENT Hospital Course: Cristina Brown is a 50 y.o. female with hx of type 2 DM, morbid obesity, hidradenitis supparativa, current smoker (1.5 ppd), hx of absent seizures, UTI, depression, anxiety, asthma, HLD, celiac disease who initially came to [facility] on 07/08/2025 as transfer with concern [...] to establish care with endocrine provider in [place], [place]. --> Provided patient with address and number of clinic. [[facility] Endocrinology Clinic in the [facility] Physician Building]. -Tentative discharge recommendations: Likely [...] team via secure chat orpage us at [phone] during 7a-7p, Tuesday-Tuesday. For after hours please [...] oxyCODONE * Assessment & Plan Note - Jasno Andre MD - 07/18/2025 7:05 AM EDT [...] AM EDT Associated Problem(s): DM (diabetes mellitus) ([facility]) - Patient presenting with significant hyperglycemia, requiring [...] Associated Problem(s): Chronic obstructive pulmonary disease, unspecified ([facility]) Complicates care. Continue Albuterol and DuoNebs. 3L [...] Results from last 7 days Lab Units 07/18/2560207/17/2551907/16/25 0525 CREATININE mg/dL 0.65 0.59* 0.48* Medications [...] eval PT/OT eval pending DM (diabetes mellitus) (CMS/[facility]) Present on Admission: Yes - Patient presenting [...] Edited by: Jason Andre MD at 07/18/2025 07 Jason Andre MD Cosigned by Anne Franco [...] Ongoing, Progressing Intervention: Promote Activity and Functional Dukes Flowsheets (Taken 07/18/2025204) Activity Assistance Provided: assistance, stand-by Self-Care Promotion: independence encouraged BADL personal objects within reach BADL personal routines maintained adaptive equipment use encouraged Problem: Wound Goal: Optimal Coping Outcome: Ongoing, Progressing Intervention: Support Patient and Family Response Flowsheets (Taken 07/18/2025 020) Supportive Measures: active listening utilized goal-setting facilitated [...] positioning supports utilized Taken 07/17/20251999 by Inessa Almazan, RN Activity Management: activity adjusted per tolerance [...] Ongoing, Progressing Intervention: Promote Activity and Functional Dukes Flowsheets Taken 07/16/2025 0635 by Yessenia Ramirez Activity Assistance Provided: assistance, stand-by Taken 07/16/2025 0129 by Eulalia Estrada, RN Self-Care Promotion: independence encouraged BADL personal objects within reach BADL personal routines maintained adaptive equipment use encouraged Taken 07/14/2025 2311 by Rita Alejandro, NAHID Adaptive Equipment Use: long-handled shoe horn Problem: [...] HLD, celiac disease who initially came to [facility] on 07/08/2025 as transfer with concern [...] to establish care with endocrine provider in [place], [place]. --> Provided patient with address and number of clinic. [[facility] Endocrinology Clinic in the [facility] Physician Building]. -Tentative discharge recommendations: Likely [...] via secure chat or page us at [phone] during 7a-7p, Tuesday-Tuesday. For after hours please [...] up with wound care close to her sisters house in [place]. CM notified. * Assessment & Plan Note - Jason Andre MD - 07/17/2025 10:21 AM EDT Associated Problem(s): Necrotizing fasciitis (CMS/HCC) [...] AM EDT Associated Problem(s): DM (diabetes mellitus) ([facility]) - Patient presenting with significant hyperglycemia, requiring [...] Associated Problem(s): Chronic obstructive pulmonary disease, unspecified ([facility]) Complicates care. Continue Albuterol and DuoNebs. 3L [...] Edited by: Inderjit Montes PA at 07/17/2025 0653 Relevant review of systems was obtained as [...] Airway None Output by Drain (mL) 07/15/25 07 - 07/15/25 18507/15/25 190 - 07/16/25 0659 07/16/25 07 - 07/16/25 1859 07/16/25 190 - 07/17/25 0659 07/17/25 07 - 07/17/25 1019 Patient has no LDAs [...] closure. Edited by: Inderjit Montes PA at 07/17/202529 Jason Andre MD Cosigned by Anne Franco [...] OCCUPATIONAL THERAPY TREATMENT Note to patient: The Cures Act makes medical notes like these [...] admission Level of Mobility Ambulatory- community Mobility Dukes Independent gait without device History of Falls [...] motivated and engaged throughout Visitors Present None Bag Machine Operator Helper (if applicable) OBJECTIVE PAIN Rates pain at [...] needed areas of treatment space Level of Dukes Interventions: Feeding Independent Edge of bed Patient [...] Level of Assistance: Moderate assistance Adaptive Equipment: Senior Communications Engineer, Sock aide Training and demonstration provided for use and functionality of sock aid, leg night filler strap and supervisor sewing department tool to support independence with LB dressing, [...] and prioritizing during ADL performance. Access Code: [email or web address] URL: [email or web address] Putting On Socks with a Sock Aid Putting On and Taking Off Pants Using a Senior Communications Engineer Using a Leg Cost Analyst Adaptive Equipment for Bathing & Showering Understanding Energy Conservation BED MOBILITY Level of Dukes Physical/Non- physical Assist Adaptive Equipment Utilized Supine to Sit Modified Dukes Bed rails TRANSFERS Level of Dukes Physical/Non- physical Assist Adaptive Equipment Utilized Sit [...] admission Level of Mobility Ambulatory- community Mobility Dukes Independent gait without device History of Falls [...] unaware when pt may be discharged from [facility]. Bag Machine Operator Helper (if applicable) Not Applicable OBJECTIVE & INTERVENTIONS [...] pt's true mobility BED MOBILITY Level of Dukes Physical/Non- physical Assist Adaptive Equipment Utilized Rolling/ Turning Scooting/ Bridging Supine to Sit Modified Dukes Bed rails Sit to Supine Interventions TRANSFERS Level of Dukes Physical/Non- physical Assist Adaptive Equipment Utilized Sit to Stand Stand-by assist Supervision Rollator Stand to sit Stand-by assist Supervision Rollator Bed to Chair Toilet Transfer Shower Transfer Interventions BALANCE Postural Appearance Posture: Forward head, Rounded shoulders Level of Dukes Balance Support Interventions Static Sit Standby assist Feet supported Dynamic Sit Contact guard Feet supported Dynamic Sitting-Balance: Lateral weight shifts, Anterior/Posterior weight shifts Static Stand Contact guard Right upper extremity support, Left upper extremity support Standing in room prior to ambulation Dynamic Stand Contact guard Right upper extremity support, Left upper extremity support 3 bouts of approx 1 min each AMBULATION Level of Dukes Distance Adaptive Equipment Utilized Ambulation Contact guard [...] 10:24 AM. * Care Plan - Eulalia Estrada RN - 07/17/2025 6:11 AM EDT Problem: [...] Comfort Flowsheets (Taken 07/16/2025128) Pain Management Interventions: (care plan) pillow support [...] Intervention: Prevent or Manage Infection Flowsheets Taken 07/17/2025449 by Eulalia Estrada RN Isolation Precautions: precautions maintained Taken 07/16/2025128 by Eulalia Estrada RN Fever Reduction/Comfort Measures: lightweight clothing Taken 07/15/2025 1325 by Sophia Salazar RN Infection Management: aseptic technique maintained Problem: Fall Injury Risk Goal: Absence of Fall and Fall-Related Injury Outcome: Ongoing, Progressing Intervention: Identify and Manage Contributors Flowsheets Taken 07/16/2025 0129 by Eulalia Estrada RN Self-Care Promotion: independence encouraged BADL personal objects within reach BADL personal routines maintained adaptive equipment use encouraged Taken 07/14/2025 1800 by Josi Ann fitness/wellness director Review/Management: medications reviewed Intervention: Promote Injury-Free Environment Flowsheets (Taken 07/17/2025 0450) Safety Promotion/Fall Prevention: activity supervised assistive device/personal items within reach clutter-free environment maintained fall prevention program maintained nonskid shoes/slippers when out of bed room organization consistent safety round/check completed Problem: Self-Care Deficit Goal: Improved Ability to Complete Activities of Daily Living Outcome: Ongoing, Progressing Intervention: Promote Activity and Functional Dukes Flowsheets Taken 07/16/2025 0635 by Yessenia Ramirez [...] Taken 07/14/2025 1800 by Josi Ann RN Family/Support System Care: support provided Goal: Optimal [...] Estrada RN Isolation Precautions: precautions maintained Taken 07/16/2025 [...] Review Outcome: Ongoing, Progressing Flowsheets (Taken 07/16/2025 0129 by Eulalia Estrada, RN) Progress: improving Plan of Care Reviewed [...] Injury Flowsheets Taken 07/16/2025 1700 by Denia Boo, RN Body Position: weight shifting Taken 07/16/2025 0635 by Yessenia Ramirez Skin Protection: (rue) pulse oximeter probe site changed Intervention: Prevent and Manage VTE (Venous Thromboembolism) Risk Flowsheets (Taken 07/16/2025 0640 by Eulalia Estrada, RN) VTE Prevention/Management: medication Intervention: Prevent Infection Flowsheets (Taken 07/16/2025 012 by Eulalia Estrada, RN) Infection Prevention: hand [...] Ongoing, Progressing Intervention: Promote Activity and Functional Dukes Flowsheets Taken 07/16/2025 0635 by Yessenia Ramirez [...] Taken 07/14/2025 1800 by Josi Ann RN Family/Support System Care: support provided Goal: Optimal [...] Bed (HOB) Positioning: HOB elevated Taken 07/16/2025 0129 by Eulalia Estrada RN Pressure Reduction Techniques: [...] of Care Goal: Plan of Care Review 07/16/2025 1810 by Isha Colunga RN Flowsheets (Taken 07/16/2025 012 by Eulalia Estrada RN) Progress: improving Plan of Care Reviewed With: patient 07/16/2025 1808 by Isha Colunga RN Outcome: Ongoing, Progressing Flowsheets (Taken 07/16/2025 012 by Eulalia Estrada RN) Progress: improving Plan of Care Reviewed With: patient Goal: Patient-Specific Goal (Individualized) 07/16/2025 1810 by Isha Colunga RN Flowsheets (Taken 07/16/2025 0900 by Denia Boo RN) Patient/Family-Specific Goals (Include Timeframe): patient will be able to report a pain less than 5 for the entire shift Individualized Care Needs: pain management Anxieties, Fears or Concerns: pain 07/16/2025 1808 by Isha Colunga RN Outcome: Ongoing, Progressing Flowsheets (Taken 07/16/2025 0900 by Denia Boo RN) Patient/Family-Specific Goals (Include Timeframe): patient will be able to report a pain less than 5 for the entire shift Individualized Care Needs: pain management Anxieties, Fears or Concerns: pain Goal: Absence of Hospital-Acquired Illness or Injury Outcome: Ongoing, Progressing Intervention: Identify and Manage Fall Risk 07/16/20251809 by Isha Colunga RN Flowsheets (Taken [...] Prevent Skin Injury 07/16/2025 181 by Isha Colnuga RN Flowsheets (Taken 07/16/2025 1700 by Denia [...] (Taken 07/16/2025 0129 by Eulalia Estrada RN) Infection Prevention: hand hygiene promoted rest/sleep promoted single patient room provided environmental surveillance performed equipment surfaces disinfected personal protective equipment utilized 07/16/2025 1808 by Isha Colunga RN Flowsheets (Taken 07/16/2025 0129 by Eulalia Estrada RN) Infection Prevention: hand [...] quiet environment facilitated relaxation techniques promoted 07/16/2025 1808 by Isha Colunga RN Flowsheets (Taken 07/16/2025 012 by Eulalia Estrada RN) Pain Management Interventions: (care plan) pillow support provided position adjusted rest medication offered but refused awakened for pain meds per patient request care clustered quiet environment facilitated relaxation techniques promoted Intervention: Provide Person-Centered Care 07/16/2025 1810 by Isha Colunga RN Flowsheets (Taken 07/14/2025 1800 by Josi Ann RN) Trust Relationship/Rapport: care explained choices provided emotional support provided empathic listening provided questions answered questions encouraged reassurance provided thoughts/feelings acknowledged 07/16/2025 1808 by Isha Colunga RN Flowsheets (Taken 07/14/2025 1800 by Josi Ann RN) Trust Relationship/Rapport: care explained choices provided emotional support provided empathic listening provided questions answered questions encouraged reassurance provided thoughts/feelings acknowledged Problem: Mechanical Ventilation Invasive Goal: Optimal Nutrition Delivery Outcome: Ongoing, Progressing Intervention: Optimize Nutrition Delivery 07/16/2025 1810 by Isha Colunga RN Flowsheets [...] Intervention: Promote and Optimize Oral Intake 07/16/2025 1810 by Isha Colunga RN Flowsheets (Taken 07/16/2025 0129 by Eulalia Estrada, RN) Oral Nutrition Promotion: [...] RN Infection Management: aseptic technique maintained 07/16/2025 1808 by Isha Colunga RN Flowsheets (Taken 07/15/2025 1325 by Sophia Salazar, RN) Infection Management: aseptic technique maintained Problem: Fall Injury Risk Goal: Absence of Fall and Fall-Related Injury Outcome: Ongoing, Progressing Intervention: Identify and Manage Contributors 07/16/2025 181 by Isha Colunga RN Flowsheets (Taken 07/16/2025 0129 by Eulalia Estrada, NAHID) Self-Care Promotion: independence encouraged BADL personal objects within reach BADL personal routines maintained adaptive equipment use encouraged 07/16/2025 1808 by Isha Colunga RN Flowsheets (Taken 07/14/2025 1800 by Josi Ann RN) Medication Review/Management: medications reviewed Problem: Self-Care Deficit Goal: Improved Ability to Complete Activities of Daily Living Outcome: Ongoing, Progressing Intervention: Promote Activity and Functional Dukes Flowsheets (Taken 07/16/2025 0129 by Eulalia Estrada, RN) Self-Care Promotion: independence encouraged BADL personal [...] 3:01 PM EDT SW received call from [employer] offering assistance for d/c planning. Her Callback #[phone] * Progress Notes - Sherrill Villa APRN - 07/16/2025 8:59 AM EDT Endocrine - [...] (H) 07/14/2025 I reviewed bg tracing in [facility] glucose timeline 07/16/25 ASSESSMENT Hospital Course: Cristina Brown is a 50 y.o. female with hx of type 2 DM, morbid obesity, hidradenitis supparativa, current smoker (1.5 ppd), hx of absent seizures, UTI, depression, anxiety, asthma, HLD, celiac disease who initially came to [facility] on 07/08/2025 as transfer with concern [...] to establish care with endocrine provider in [place], [place]. --> Provided patient with address and number of clinic. [[facility] Endocrinology Clinic in the [facility] Physician Building]. -Tentative discharge recommendations: Likely [...] team via secure chat orpage us at [phone] during 7a-7p, Tuesday-Tuesday. For after hours please [...] 6:52 AM EDT Associated Problem(s): Necrotizing fasciitis ([facility]) - 07/09: debridement of necrotizing fasciitis in [...] AM EDT Associated Problem(s): DM (diabetes mellitus) (CMS/[facility]) - Patient presenting with significant hyperglycemia, requiring [...] Associated Problem(s): Chronic obstructive pulmonary disease, unspecified (CMS/HCC) Complicates care. Continue Albuterol and DuoNebs. 3L [...] 6:52 AM EDT Associated Problem(s): Postoperative pain MMPC * Progress Notes - Jason Andre MD - 07/16/2025 6:51 AM EDT 07/16/25 Cristina Brown [facility] 50-year-old female with past medical history of [...] Edited by: Jason Andre MD at 07/16/2025 0647 Relevant review of systems was obtained as [...] Drain (mL) 07/14/25 07 - 07/14/25 18507/14/25 1900 - 07/15/25 0659 07/15/25 07 - 07/15/25 18507/15/25 190 - 07/16/25 0651 Requested LDAs do [...] night Postoperative pain Present on Admission: Unknown [facility] Non-Hospital Problems Carpal tunnel syndrome Dehydration Hidradenitis suppurativa History of hysterectomy Marijuana smoker Pharyngitis Type 2 diabetes mellitus Overview Signed 08/31/2023 9:36 AM by Janell Bueno Assessment & Plan: Condition: stable Discussed glucose [...] maintained pulse oximeter probe site changed Taken 07/16/202553 Body Position: side-lying Intervention: Prevent and Manage [...] use encouraged Taken 07/14/2025 1800 by Josi Ann, fitness/wellness director Review/Management: medications reviewed Intervention: Promote Injury-Free Environment Flowsheets (Taken 07/16/2025 0054) Safety Promotion/Fall Prevention: activity supervised assistive device/personal items within reach clutter-free environment maintained fall prevention program maintained nonskid shoes/slippers when out of bed room organization consistent safety round/check completed Problem: Self-Care Deficit Goal: Improved Ability to Complete Activities of Daily Living Outcome: Ongoing, Progressing Intervention: Promote Activity and Functional Dukes Flowsheets (Taken 07/16/2025128) Self-Care Promotion: independence encouraged BADL personal objects within reach BADL personal routines maintained adaptive equipment use encouraged Problem: Wound Goal: Optimal Coping Outcome: Ongoing, Progressing Intervention: Support Patient and Family Response Flowsheets Taken 07/16/2025128 by Eulalia Estrada RN Supportive Measures: active listening utilized verbalization of feelings encouraged problem-solving facilitated relaxation techniques promoted Taken 07/14/2025 1800 by Josi Ann employment case manager/Support System Care: support provided Goal: Optimal Functional Ability Outcome: Ongoing, Progressing Intervention: Optimize Functional Ability Flowsheets Taken 07/16/2025128 by Eulalia Estrada RN Activity Management: activity adjusted per tolerance activity encouraged Taken 07/15/2025 174 by Denia Boo RN Activity Assistance Provided: assistance, stand-by Goal: Absence [...] Intervention: Prevent or Manage Pain Flowsheets (Taken 07/16/2025 012) Pain Management Interventions: pillow support provided position [...] Progressing Intervention: Promote Wound Healing Flowsheets (Taken 07/16/2025128) Sleep/Rest Enhancement: awakenings minimized consistent schedule promoted noise level reduced regular sleep/rest pattern promoted relaxation techniques promoted room darkened * Care Plan - Denia Boo RN - 07/15/2025 5:50 PM EDT Problem: Adult Inpatient Plan of Care Goal: Plan of Care Review Outcome: Ongoing, Progressing Flowsheets Taken 07/14/2025 2311 by Rita Alejandro RN Progress: improving Taken 07/14/20251812 by Josi Ann RN Plan of Care Reviewed With: patient Goal: Patient-Specific Goal (Individualized) Outcome: Ongoing, Progressing Flowsheets (Taken 07/15/2025 09) Patient/Family-Specific Goals (Include Timeframe): pain will be reported less than 5 for the entireshift Individualized Care Needs: pain management Anxieties, Fears or Concerns: pain Goal: Absence of Hospital-Acquired Illness or Injury Outcome: Ongoing, Progressing Intervention: Identify and Manage Fall Risk Flowsheets (Taken 07/15/2025 09) Safety Promotion/Fall Prevention: activity supervised lighting adjusted nonskid shoes/slippers when out of bed assistive device/personal items within reach clutter-free environment maintained Intervention: Prevent Skin Injury Flowsheets Taken 07/15/2025 1600 by Isha Colunga RN Body Position: weight shifting Taken 07/14/20251999 by Rita Alejandro RN Skin Protection: incontinence pads utilized Intervention: Prevent and Manage VTE (Venous Thromboembolism) Risk Flowsheets (Taken 07/14/20251999 by Rita Alejandro RN) VTE Prevention/Management: SCDs (sequential compression devices) on [...] Delivery Flowsheets (Taken 07/14/2025 1800 by Josi Ann RN) Nutrition Support Management: weight trending reviewed Problem: Skin Injury Risk Increased Goal: Skin Health and Integrity Outcome: Ongoing, Progressing Intervention: Optimize Skin Protection Flowsheets Taken 07/15/2025 1647 by Isha Colunga RN Activity Management: ambulated to bathroom Taken 07/15/2025 1325 by Sophia Salazar RN Pressure Reduction Devices: specialty bed utilized Taken 07/14/20251999 by Rita Alejandro RN Skin Protection: incontinence pads utilized Head of [...] Precautions: precautions maintained Taken 07/14/2025 1800 by Falls, Josi M, RN Fever Reduction/Comfort Measures: lightweight bedding Problem: [...] Ongoing, Progressing Intervention: Promote Activity and Functional Dukes Flowsheets Taken 07/15/2025 1745 by Denia Boo [...] provided Taken 07/14/2025 1800 by Josi Ann RN Family/Support System Care: support provided Goal: Optimal [...] 07/14/2025 1800 by Josi Ann RN Nutrition Support Management: [...] Pressure Reduction Devices: specialty bed utilized Taken 07/14/2025 2000 by Rita Alejandro RN Head of Bed [...] Patient and Family Response Flowsheets (Taken 07/15/2025 1325) Supportive Measures: positive reinforcement provided Goal: Optimal Functional Ability Outcome: Ongoing, Progressing Intervention: Optimize Functional Ability Flowsheets (Taken 07/15/2025 132) Activity Management: activity encouraged Goal: Absence of Infection Signs and Symptoms Outcome: Ongoing, Progressing Intervention: Prevent or Manage Infection Flowsheets (Taken 07/15/2025 1325) Infection Management: aseptic technique maintained Isolation Precautions: precautions maintained Goal: Improved Oral Intake Outcome: Ongoing, Progressing Intervention: Promote and Optimize Oral Intake Flowsheets (Taken 07/15/2025 1325) Oral Nutrition Promotion: social interaction promoted Goal: [...] Note Cristina Brown 50 y.o. female CSN: [id number] Room/Bed 123/123A Nutrition evaluation type: follow-up Reason for evaluation: Hospital course: 50 y o F transferred from [facility] with concern for necrotizing fasciitis; OR 07/08 for excisional debridement of RLE, groin, pubis, and abdominal wall of skin, subcutaneous tissue, and muscle fascia, [id number]. Septic shock secondary to NSTI. Intubated & [...] Estimated Needs: Kcal: 25-27 kcal/kg adj bw (1030-7853 kcal/d) Protein: 1.5-1.7 g/kg adj bw (143-162 [...] per acuity (ongoing) Acuity Level: 1 Marilee Agustin, RD, LD [1] Past Medical History: Diagnosis [...] Note Cristina Brown 50 y.o. female CSN: [id number] Admission: 07/08/2025 5:58 PM Primary Problem: Necrotizing fasciitis (CMS/HCC) Auto Body Painter reviewed chart and spoke with patient to complete this Initial Case Management Assessment. PCP: Yenny Dhillon APRN Emergency Contact: Extended Emergency Contact Information Primary Emergency Contact: Yecenia Lake Mobile Relation: Sister Preferred language: Irish Bag Machine Operator Helper needed? No Secondary Emergency Contact: Arnoldo Raymond Address[address] [address] [place] [address] Mobile Relation: Significant Other Preferred language: Irish Bag Machine Operator Helper needed? No Insurance: Primary Visit Coverage Payer Plan Sponsor Code Group Number Group Name [place]HC MEDICAID [place] Primary Visit Coverage Subscriber Subscriber ID Subscriber Name Subscriber N Subscriber Address [id number] LOIS BROWNAJITSal Escobar [phone] [place] [address] Patient information: Primary Caregiver: Self Accompanied by/Relationship: Arnoldo Raymond- significant other Support System: Immediate family, Extended family, Friends Daily Living Activities: Functional Status: Minimum assistance Living Arrangements: Family, Friends Type of Residence: Private residence [address] [place] [address] Smoker in the Home?: Yes Current DME: Equipment Currently Used at Home: none Income Information: Income Source: Unemployed Income/Expense Information: Expenses exceed income Current Resources Utilized: Food [place] Housing Circumstances-Z Codes: Housing Circumstances (select all [...] Dialysis Services: N/A Living Will/Advance Directive/Power of Tray Worker /Guardian: N/A Additional Comments: Pt gets her medications from [facility] in [place] * Consults - Anupama [...] HLD, celiac disease who initially came to [facility] on 07/08/2025 as transfer with concern [...] Anxiety, Asthma, Carpal tunnel syndrome, Depression, Diabetes ([facility]), H/O absence seizures, Hidradenitis, High cholesterol, Hypertension, [...] after discharge close to her home at [place]. She agrees to call and make appointment [...] q15 min PRN Richard Betts CRNA 500 mL/hr at 07/09/25 1226 125 mL at 07/09/25 1226 [...] flush 10 mL 10 mL Intravenous q12h Ruthy Craft MD 10 mL at 07/15/25 0033 sodium [...] Endocrinology referral - patient requested to see [facility] in [place], [place]. Provided patient with address and number of clinic. [[facility] Endocrinology Clinic in the [facility] Physician Building]. Patient has been on insulin while hospitalized, but utilizing metformin at home with good compliance. Diabetes care complicated by celiac diagnosis - placed nutrition consult to help patient navigate gluten free and diabetes diet. * Assessment & Plan Note - Jason Andre MD - 07/15/2025 7:15 AM EDT Associated Problem(s): Necrotizing fasciitis (CMS/HCC) [...] AM EDT Associated Problem(s): DM (diabetes mellitus) (CMS/HCC) - Patient presenting with significant hyperglycemia, requiring [...] Associated Problem(s): Chronic obstructive pulmonary disease, unspecified (CMS/HCC) Complicates care. Continue Albuterol and DuoNebs. 3L [...] 7:15 AM EDT Associated Problem(s): Postoperative pain MMPC [...] Edited by: Jason Andre MD at 07/15/2025 0744 Relevant review of systems was obtained as [...] Morbid (severe) obesity due to excess calories ([facility]/HCC) Present on Admission: Yes Complicates all aspect of care Urge incontinence Present on Admission: Yes Patient currently with a montalvo catheter. Remove when able. Absence seizure ([facility]/HCC) Present on Admission: Yes - On Lamictal 50mg BID at home. Restarted 07/09. Acute respiratory failure Present on Admission: Yes CPAP at night for suspected sleep apnea Lasix PRN for pulmonary edema and to help with breathing Improving, will continue to monitor Septic shock ([facility]/HCC) Present on Admission: Yes Septic shock secondary to necrotizing fascitis. Required Levophed and Vasopressin for circulatory support. Currently off pressor support, continue to monitor pressures. HLD (hyperlipidemia) Present on Admission: Yes Home Rosuvastatin JOSEP (obstructive sleep apnea) Present on Admission: No CPAP at night Postoperative pain Present on Admission: Unknown [facility] Non-Hospital Problems Carpal tunnel syndrome Dehydration Hidradenitis [...] Intake Flowsheets (Taken 07/14/2025 1800 by Josi Ann RN) Oral Nutrition Promotion: calorie-dense foods provided rest periods promoted Nutrition Interventions: frequent small meals provided supplemental drinks provided Problem: Self-Care Deficit Goal: Improved Ability to Complete Activities of Daily Living Outcome: Ongoing, Progressing Intervention: Promote Activity and Functional Dukes Flowsheets Taken 07/14/2025 2311 by Rita Alejandro, RN [...] HOB elevated Taken 07/14/2025 1800 by Josi Ann, RN Pressure Reduction Devices: positioning supports utilized [...] Ongoing, Progressing Intervention: Promote Activity and Functional Dukes Flowsheets (Taken 07/14/2025 1800) Activity Assistance Provided: [...] PM EDT Operative Note Date: 07/14/25 Location: [facility] Name: Cristina Brown, : 1975, Diagnoses: Pre-op Diagnosis Necrotizing fasciitis (CMS/HCC) Post-op Diagnosis Necrotizing fasciitis (CMS/HCC) Procedure(s): Wound irrigation Partial wound closure, total closed 30 cm length Attending Surgeon(s): * Anne Franco - Primary Paste Maker(s): * Janell Cross MD - Resident - Assisting Anesthesia: General ASA: III Blood Administration: Blood Product Administration History Product Date Volume Status Transfuse RBC RBC 07/08/2025 350 mL Completed 07/08/252341 Transfuse fresh frozen plasma Plasma 07/08/2025 300 mL Completed 07/08/25 234 Transfuse RBC RBC 07/08/2025 350 mL Completed 07/08/252341 Transfuse fresh frozen plasma Plasma 07/08/2025 300 mL Completed 07/08/252341 Estimated Blood Loss: Minimal Drains: Urethral Catheter Temperature probe 16 Fr. (Active) Site Assessment Clean;Skin intact 07/14/25 1625 CAUTI: Collection Container Standard drainage bag;Collection container below bladder and tubing free of kinks 07/14/25 1625 CAUTI: Securement Method Securing device (Describe) 07/14/25 162 CAUTI: Specimen Collection Port Covered with Alcohol Cap Yes 07/14/25 1625 CAUTI: Urinary Catheter Indication Yes, meets indication reason 07/14/25 0000 CAUTI: Urinary Catheter Indication Reasons Stage 3-4 sacral/perineal wound with female incontinent patient 07/14/25 0000 Output (mL) 30 mL 07/14/25 1625 [REMOVED] NG/OG [facility] mouth (Removed) Placement Verification distal tube length 07/10/25 0800 Tube Placement Length Marking (cm) 60 07/10/25 0800 Site Assessment Clean;Dry;Intact 07/10/25 08 Surrounding Skin Dry;Intact 07/10/25 08 Secured by Tape 07/10/25 08 Secured Location [...] (mL) 49 mL 07/10/25 0000 [REMOVED] NG/OG [place] [facility] 14 Fr Left nostril (Removed) Placement [...] of the procedure(s) and immediately available [facility] the entire duration. See resident note [...] 7:31 AM EDT Associated Problem(s): Necrotizing fasciitis ([facility]) - 07/09: debridement of necrotizing fasciitis in [...] AM EDT Associated Problem(s): DM (diabetes mellitus) (CMS/[facility]) - Patient presenting with significant hyperglycemia, requiring [...] Associated Problem(s): Chronic obstructive pulmonary disease, unspecified (CMS/HCC) Complicates care. Continue Albuterol and DuoNebs. 3L [...] 07/14/2025 7:30 AM EDT 07/14/25 Cristina Brown [facility] 50-year-old female with past medical history of [...] Edited by: Jason Andre MD at 07/14/2025 07 Relevant review of systems was obtained as [...] Intake/Output Summary (Last 24 hours) at 07/14/2025 07 Last data filed at 07/14/2025 0600 Gross per 24 hour Intake 696.4 ml Output 3350 ml Net -2653.6 ml Lines/Drains/Tubes: Patient Lines/Drains/Airways Status Active Airway None Output by Drain (mL) 07/12/25 0700 - 07/12/25 1859 07/12/25 1900 - 07/13/25 0659 07/13/25 0700 - 07/13/25 1859 07/13/25 1900 - 07/14/25 0659 07/14/25 0700 - 07/14/25 0730 Requested LDAs do not [...] night Postoperative pain Present on Admission: Unknown [facility] Non-Hospital Problems Carpal tunnel syndrome Dehydration Hidradenitis [...] Edited by: Jason Andre MD at 07/14/2025 3271 Jason Andre MD Cosigned by Anne Franco [...] Ongoing, Progressing Intervention: Promote Activity and Functional Dukes Flowsheets (Taken 07/13/20251826) Activity Assistance Provided: assistance, [...] EDT Case Management Adult Initial Progress Note Kishasal AnayaKevin 50 y.o. 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 PCP: Yenny Dhillon APRN Emergency Contact: Extended Emergency Contact Information Primary Emergency Contact: [place] Mobile Relation: Sister Preferred language: Irish Bag Machine Operator Helper needed? No Secondary Emergency Contact: Arnoldo Raymond [address]: [address] [place] [address] of [place] Mobile Relation: Significant Other Preferred language: Irish Bag Machine Operator Helper needed? No Insurance: Primary Visit Coverage Payer Plan Sponsor Code Group Number Group Name [facility] MEDICAID [facility] MEDICAID [place] Primary Visit Coverage Subscriber Subscriber ID Subscriber Name Subscriber SSN Subscriber Address [id number] CRISTINA BROWN [id number] [place] [address] Patient information: Primary Caregiver: Self Accompanied by/Relationship: Arnoldo Raymond- significant other Support System: Immediate family Daily Living Activities: Functional Status: Independent Living Arrangements: Spouse/Significant other Type of Residence: Private residence [address] [place] [address] Current DME: Equipment Currently Used at Home: none Income Information: Housing Circumstances-Z Codes: Patient Referred to: Anticipated Discharge Date: unknown Patient's Discharge Goal: Referrals sent for Acute Rehab Assistance Available at Discharge: Arnoldo Raymond Discharge Transport: Arnoldo Raymond Follow Up Transport: Arnoldo raymond Home Health / Home Infusion / Outpatient Dialysis Services: none Living Will/Advance Directive/Power of Tray Worker /Guardian: Additional Comments: CM discussed acute rehab placement with Cristina and Arnoldo Raymond. Their first choice is [facility] in [place], [place]. CM sent referrals in [facility]. Cristina will continue inpatient management for necrotizing [...] PM EDT Associated Problem(s): DM (diabetes mellitus) (CMS/[facility]) - Patient presenting with significant hyperglycemia, requiring an insulin drip on admission. - Currently off insulin drip Pharmacy to dose insulin Glargine 10U, Lispro correction and nighttime dosing. Carbohydrate restricted diet * Assessment & Plan Note - Jatin Miller MD - 07/13/2025 12:36 PM EDT Associated Problem(s): Necrotizing fasciitis ([facility]) - 07/09: debridement of necrotizing fasciitis in [...] Associated Problem(s): Chronic obstructive pulmonary disease, unspecified (CMS/HCC) Complicates care. Continue Albuterol and DuoNebs. 3L [...] night * Assessment & Plan Note - Jatin [...] admitted 07/08/2025 [place] Problem List Active Hospital Problems Diagnosis Date Noted Postoperative pain 07/13/2025 JOSEP (obstructive sleep apnea) 07/11/2025 HLD (hyperlipidemia) 07/10/2025 Acute respiratory failure 07/09/2025 Septic shock ([facility]) 07/09/2025 Absence seizure ([facility]) 07/09/2025 DM (diabetes mellitus) [place] [place] [place] 07/08/2025 Hidradenitis 07/08/2025 HTN (hypertension), benign 08/31/2023 Urge incontinence 08/31/2023 Smoker 06/09/2023 Depression 06/09/2023 Morbid (severe) obesity due to excess calories [place] 02/15/2022 Chronic obstructive pulmonary disease, unspecified [place] 01/09/2022 Necrotizing fasciitis [place] 07/08/2025 Procedures 07/11/2025 Procedure(s): APPLICATION OR REPLACEMENT, WOUND VAC Past Medical History Patient has a past medical history of Anxiety, Asthma, Carpal tunnel syndrome, Depression, Diabetes([facility]), H/O absence seizures, Hidradenitis, High cholesterol, Hypertension, [...] evaluation. Participants in Care Family/Caregiver Present: No Bag Machine Operator Helper: Not Applicable Presentation Oxygen Therapy: Supplemental oxygen [...] reach. Home Living/Set-up Lives With: Significant other (dheeraj [...] admission Level of Mobility: Ambulatory- community Mobility Dukes: Independent gait without device History of Falls: [...] Mobility Bed Mobility Exam: Scooting/Bridging Level of Dukes: Contact guard (seated scoot once sitting up on EOB and able to wiggle back into recliner chair) Bed Mobility Exam: Supine to Sit Level of Dukes: Moderate assist (50% patient's effort) Physical/Nonphysical Assist: Verbal Cues, Moderate cues, Additional assist utilized for safety, HOBelevated Assistive Device: Other (INFANTRY ASSAULTMAN x2) Transfers Transfer Interventions: Patient performed sit < > stand x 3 reps total: Mod A from EOB, Min Afrom recliner chair, and CGA from BSC. Transfer Exam: Sit to stand Level of Dukes: Minimum assist (75% patient's effort) Physical/Nonphysical Assist: Verbal Cues, Minimal cues Assistive Device: Walker, rolling (andrea) Transfer Exam: Stand to Sit Level of Dukes: Minimum assist (75% patient's effort) Physical/Nonphysical Assist: Verbal Cues, Minimal cues Assistive Device: Walker, rolling (andrea) Transfer Exam: Bed to Chair/Chair to Bed Level of Dukes: Minimum assist (75% patient's effort) Physical/Nonphysical Assist: Verbal Cues, Minimal cues, Additional assist utilized for safety Type of Transfer: Sidesteps (bed > chair < > BSC) Assistive Device: Walker, rolling (andrea) Toilet Transfer Level of Dukes: Minimum assist (75% patient's effort) Physical/Nonphysical Assist: Nonverbal cues (demo/gestures), Verbal Cues, Set-up required, Minimal cues Type of Transfer: Sidesteps, To bedside commode (ordered bariatric BSC from [facility] as patient had difficulty getting on/off BSC [...] to allow bedside care to take placed (CELL TECHNICIAN entering to take vitals; RN enforcing bandages [...] for further toileting ADL needs. Standardized Assessments [facility] 6-Click Daily Activities Help from Other: Don/Doff Regular Lower Body Clothings: A lot Help From Other: Bathing: A lot Help From Other: Toileting: A lot Help From Other: Don/Doff Upper Body Clothings: Little Help From Other: Grooming: None Help From Other: Eating Meals: None [facility] 6 Click - Daily Activities Score: 17 [...] admitted 07/08/2025 for work-up of Necrotizing fasciitis ([facility]). Problem List Active Hospital Problems Diagnosis Date Noted Postoperative pain 07/13/2025 JOSEP (obstructive sleep apnea) 07/11/2025 HLD (hyperlipidemia) 07/10/2025 Acute respiratory failure 07/09/2025 Septic shock ([facility]) 07/09/2025 Absence seizure ([facility]) 07/09/2025 DM (diabetes mellitus) ([facility]) 07/08/2025 Hidradenitis 07/08/2025 HTN (hypertension), benign 08/31/2023 Urge incontinence 08/31/2023 Smoker 06/09/2023 Depression 06/09/2023 Morbid (severe) obesity due to excess calories ([facility]) 02/15/2022 Chronic obstructive pulmonary disease, unspecified ([facility]) 01/09/2022 Necrotizing fasciitis ([facility]) 07/08/2025 Procedures 07/11/2025 Procedure(s): APPLICATION OR REPLACEMENT, WOUND VAC Past Medical History Patient has a past medical history of Anxiety, Asthma, Carpal tunnel syndrome, Depression, Diabetes([facility]), H/O absence seizures, Hidradenitis, High cholesterol, Hypertension, [...] move. Participants in Care Family/Caregiver Present: No Bag Machine Operator Helper: Not Applicable Presentation Oxygen Therapy: Supplemental oxygen [...] admission Level of Mobility: Ambulatory- community Mobility Dukes: Independent gait without device History of Falls: [...] Mobility Bed Mobility Exam: Scooting/Bridging Level of Dukes: Contact guard (seated scoot once sitting up on EOB and able to wiggle back into recliner chair) Bed Mobility Exam: Supine to Sit Level of Dukes: Moderate assist (50% patient's effort) Physical/Nonphysical Assist: Verbal Cues, Moderate cues, Additional assist utilized for safety, HOBelevated Assistive Device: Other (INFANTRY ASSAULTMAN x 2) Transfers Transfer Interventions: Patient performed sit < > stand x 3 reps total: Mod A from EOB, Min Afrom recliner chair, and CGA from BSC. Cues for safe hand placement during transitions using RW. Transfer Exam: Sit to stand Level of Dukes: Minimum assist (75% patient's effort) Physical/Nonphysical Assist: Verbal Cues, Minimal cues Assistive Device: Walker, rolling (andrea) Transfer Exam: Stand to Sit Level of Dukes: Minimum assist (75% patient's effort) Physical/Nonphysical Assist: Verbal Cues, Minimal cues Assistive Device: Walker, rolling (andrea) Transfer Exam: Bed to Chair/Chair to Bed Level of Dukes: Minimum assist (75% patient's effort) Physical/Nonphysical Assist: Verbal Cues, Minimal cues, Additional assist utilized for safety Type of Transfer: Sidesteps (bed > chair < > BSC) Assistive Device: Walker, rolling (andrea) Toilet Transfer Level of Dukes: Minimum assist (75% patient's effort) Physical/Nonphysical Assist: Set-up required, Verbal Cues Type of Transfer: Sidesteps, To bedside commode (ordered bariatric BSC from [facility] as patient had difficulty getting on/off BSC [...] Assessments Standardized Assessments: AMPAC 6-Clicks Mobility Assessment AMPA 6-Clicks Mobility Assessment Difficulty patient has turning [...] climbing 3-5 steps with a railing?: Unable [facility] 6-Clicks Mobility Assessment Total : 15 No [...] anxiety, asthma, HLD, celiac disease, presenting to [facility] on 07/08/2025 as transfer with concern [...] stay, and so will be discharged to [facility]. * Assessment & Plan Note - Jatin [...] Airway None Output by Drain (mL) 07/11/25 07 - 07/11/25 1859 07/11/25 1900 - 07/12/25 [...] night Postoperative pain Present on Admission: Unknown [facility] Non-Hospital Problems Carpal tunnel syndrome Dehydration Hidradenitis [...] and Optimize Oral Intake Flowsheets (Taken 07/12/2025 5686) Nutrition Interventions: diet adjusted * Progress Notes - Annie Littlejohn - 07/12/2025 1:04 PM EDT SW attempted to complete the initial assmt and the pt was asleep and there was no family at bedside. SW will continue to f/u. * Progress Notes - Gabriel Segovia - 07/12/2025 10:28 AM EDT Surgical ICU Daily Progress Note 07/12/25 Cristina Brown HPI 50-year-old female with past [...] Airway None O2 Delivery Method: Nasal cannula MS SUP: 10 cm H20 Insp Time (sec): 1 sec FiO2 (%): 40 % S RR: 20 MS SUP: 10 cm H20 Output by Drain (mL) 07/10/25 07 - 07/10/25 18507/10/25 190 - 07/11/25 0659 07/11/25 07 - 07/11/25 1859 07/11/25 1900 - 07/12/25 0659 07/12/25 07 - 07/12/25 [...] saw and evaluated the patient with the medical/MRI MANAGER/PA student. I discussed the case with the medical/MRI MANAGER/PA student and agree with the findings and [...] PM EDT Operative Note Date: 07/11/25 Location: [facility] Name: Cristina Brown, : 1975, Diagnoses: Pre-op Diagnosis Necrotizing fasciitis (CMS/HCC) Post-op Diagnosis Necrotizing fasciitis (CMS/HCC) Procedure(s): Right groin/perineum/thigh/abdominal wound exploration and washout Attending Surgeon(s): * Dorcas Hennessy - Primary Paste Maker(s): * Janell Cross MD - Resident - [...] mL Completed 07/08/25 2342 Estimated Blood Loss: None Drains: Urethral Catheter Temperature probe 16 Fr. (Active) Site Assessment Clean;Skin intact 07/11/251399 CAUTI: Collection Container Standard drainage bag;System closed;Collection container below bladder and tubing free of kinks 07/11/251399 CAUTI: Securement Method Securing device (Describe) 07/11/25 1400 CAUTI: Specimen Collection Port Covered with Alcohol Cap Yes 07/11/25 1400 CAUTI: Urinary Catheter Indication Yes, meets indication [...] who is having surgery for Necrotizing fasciitis ([facility]). Patient had 2 prior debridements of her [...] Note Cristina Brown 50 y.o. female CSN: [id number] Room/Bed 133/133A Nutrition evaluation type: follow-up Reason for evaluation: Hospital course: 50 y o F transferred from [facility] with concern for necrotizing fasciitis; OR 07/08 for excisional debridement of RLE, groin, pubis, and abdominal wall of skin, subcutaneous tissue, and muscle fascia, [id number]. Septic shock secondary to NSTI. Intubated & [...] Estimated Needs: Kcal: 25-27 kcal/kg adj bw (5594-1431 kcal/d) Protein: 1.5-1.7 g/kg adj bw (143-162 g/d) Current Nutrition Intake: Diet: NPO Nutrition Support: Tube Feeding Route: Active Enteral Regimen: Provides: Avg enteral infusion: Tolerates: Diet Experience & Nutrition History: Diet Education: Will monitor Pertinent Home Medications: per med rec at this time, not taking listed meds - monitor for updates Nutrition Focused Physical Exam: Physical exam performed on (date): 9/2/25 (visual; may be skewed by obesity) Temples (muscles): None Clavicle (muscle): None Shoulder (muscle): None Orbital (fat): None Assessment of Malnutrition: Malnutrition Identified: No Nutrition Problem: Inadequate oral intake related to clinical condition as evidenced by NPO diet order Status of Nutrition Diagnosis: Ongoing Nutrition Interventions and Recommendations: -will monitor NPO duration -po per MD/ WOOD BUFFER -when po diet appropriate, rec CC3, Gluten [...] norepinephrine, 0-0.4 mcg/kg/min, Last Rate: 0.04 mcg/kg/min (07/11/25699) vasopressin, 0.03 Units/min, Last Rate: 0.03 Units/min [...] Vent Status (ETT, Trach Only): In use MS SUP: 5 cm H20 Insp Time (sec): 1.5 sec Vent Mode: PS FiO2 (%): 60 % S RR: 14 MS SUP: 5 cm H20 MAP (cm H2O): 9 Output by Drain (mL) 07/09/25 0700 - 07/09/25 1859 07/09/25 1900 - 07/10/25 0659 07/10/25 0700 - 07/10/25 1859 07/10/25 1900 - 07/11/25 0659 07/11/25 0700 - 07/11/25 0950 Requested LDAs do not [...] night for suspected sleep apnea Septic shock (CMS/HCC) Yes Overview Addendum 07/10/2025 [...] Cheyanne Chakraborty MD at 07/11/2025 0839 Gabriel Segovia Critical Care Performed by: Dorcas [...] Care Review Outcome: Ongoing, Progressing Flowsheets Taken 07/11/2025117 by Cheyanne Briceño RN Progress: improving Taken 07/10/20251716 by Isha Cueto RN Plan of Care [...] Progressing Intervention: Optimize Skin Protection Flowsheets Taken 07/11/202529 by Cheyanne Briceño RN Skin Protection: incontinence pads utilized Taken 07/11/2025 0000 by Cheyanne Briceño RN Activity Management: activity adjusted per tolerance Head of Bed (HOB) Positioning: HOB at 30-45 degrees Taken 07/09/2025 2247 by Cheyanne Briceño RN Pressure Reduction Devices: alternating pressure pump (MARLA) positioning supports utilized foam padding utilized specialty bed utilized Taken 07/09/2025 1447 by Jeana Bear Pressure Reduction Techniques: heels elevated off bed weight shift assistance provided Problem: Restraint, Nonviolent Goal: Absence of Harm or Injury Outcome: Ongoing, Progressing Intervention: Protect Skin and Joint Integrity Flowsheets Taken 07/11/2025117 Body Position: turned Taken 07/11/2025 0030 Skin Protection: incontinence pads utilized Taken 07/11/2025 [...] Progressing Intervention: Promote Injury-Free Environment Flowsheets (Taken 07/11/2025117) Safety Promotion/Fall Prevention: activity supervised * Anesthesia [...] PM EDT Operative Note Date: 07/10/25 Location: [facility] Name: Cristina Brown, : 1975, Diagnoses: Pre-op Diagnosis Necrotizing fasciitis (CMS/HCC) Post-op Diagnosis Necrotizing fasciitis (CMS/HCC) Procedure(s): Right groin/perineum/thigh/abdominal wound exploration, debridement, and washout Attending Surgeon(s): * Dorcas Hennessy - Primary Paste Maker(s): * Shelby Whittington MD - Resident - [...] mL Completed 07/08/25 2342 Estimated Blood Loss: Minimal Drains: NG/OG [place] Sump 14 Fr Left nostril (Active) Placement Verification distal tube length;X-ray 07/10/25 1200 [...] Port Covered with Alcohol Cap Yes 07/10/25 0800 CAUTI: Urinary Catheter Indication Yes, meets indication reason 07/10/25 0800 CAUTI: Urinary Catheter Indication Reasons ICU patient requiring output monitoring q 1-2 hours withinterventions 07/10/25 0800 Output (mL) 330 mL 07/10/25 1400 Specimen: None Findings: All viable tissue. Wound measuring approximately [id number]. Packed with 5 kerlix tied together. Indications: [...] Edited by: Lidia Ellis MD at 07/10/2025 8695 Relevant review of systems was obtained as able and is negative unless stated above in HPI. Vital signs: Visit Vitals BP 99/60 Pulse 90 Temp 36.9 ??C (98.5 ??F) (Oral) Resp 16 Ht 1.778 m (5' 10 ) Wt 177 kg (391 lb 1.5 oz) SpO2 94% BMI 56.12 kg/m?? Smoking Status Every Day BSA 2.96 m?? Intake/Output Summary (Last 24 hours) at 07/10/20251904 Last data filed at 07/10/2025 1717 Gross [...] Vent Status (ETT, Trach Only): In use MS SUP: 5 cm H20 Insp Time (sec): 1.5 sec Vent Mode: PS FiO2 (%): 50 % S RR: 14 MS SUP: 5 cm H20 MAP (cm H2O): 9 Output by Drain (mL) 07/08/25 07 - 07/08/25 18507/08/25 190 - 07/09/25 0659 07/09/25 07 - 07/09/25 1859 07/09/25 190 - 07/10/25 0659 07/10/25 07 - 07/10/25 18507/10/25 190 - 07/10/25 190 Requested LDAs do not have output data [...] Hospital Problems POA * (Principal) Necrotizing fasciitis ([facility]) Yes Overview Addendum 07/10/2025 4:51 PM by Lidia Ellis MD - Presented to with right medial thigh NSTI. - S/p irrigation and debridement on 07/08. - On cefepime, linezolid, and flagyl (07/08-TBD) - Irrigation and debridement of RLE on 07/10. Chronic obstructive pulmonary disease, unspecified ([facility]/HCC) Yes Overview Addendum 07/09/2025 4:10 PM by [...] Morbid (severe) obesity due to excess calories ([facility]) Yes Overview Addendum 07/09/2025 4:07 PM by Lidia Ellis MD Complicates care. Smoker Yes Overview Signed 07/09/2025 3:05 PM by Lidia Ellis MD - Patient smokes 0.5-1ppd. - Smoking cessation when appropriate. Urge incontinence Yes DM (diabetes mellitus) ([facility]) Yes Overview Addendum 07/09/2025 4:11 PM by Lidia Ellis MD - Patient hyperglycemic, up to 300s. - Insulin drip per protocol. Hidradenitis Yes Absence seizure (CMS/HCC) (Chronic) Yes Overview Addendum 07/10/2025 4:52 PM [...] Protection: absorbent pad utilized/changed positioning supports utilized [id number] areas padded [id number] areas padded Problem: Skin Injury Risk Increased Goal: Skin Health and Integrity Outcome: Ongoing, Progressing Intervention: Optimize Skin Protection Flowsheets Taken 07/09/20252246 by Cheyanne Briceño RN Pressure [...] Progressing Intervention: Optimize Nutrition Delivery Flowsheets (Taken 07/09/2025 1447) Nutrition Support Management: tube feeding initiated Problem: [...] Note Cristina Brown 50 y.o. female CSN: [id number] Room/Bed 133/133A Nutrition evaluation type: assessment Reason for evaluation: provider consult Hospital course: 50 y o F transferred [facility] with concern for necrotizing fasciitis; OR 07/08 for excisional debridement of RLE, groin, pubis, and abdominal wall of skin, subcutaneous tissue, and muscle fascia, [id number]. Septic shock secondary to NSTI. Intubated & sedated. TF initiated 07/09. Past medical/ surgical history: Past Medical History[1], celiac disease Surgical History[2] Social history: Social History[3] Additional comments: 07/09: Pt intubated and sedated. Visitor sleeping. Vitals and Basic Assessment: BP: 89/50 Temp: 36.3 ??C (97.3 ??F) Invasive Ventilator Initiated (ETT/Trach Only): Yes Oxygen Therapy: Supplemental oxygen O2 Delivery Method: Endotracheal tube, Mechanical ventilator Dileep Coma Scale Score: 10 Satnam/Cubbin Pressure Risk [...] from last 7 days Lab Units 07/09/25 04507/08/25 23507/08/25 1814 SODIUM mmol/L 136 136 131* POTASSIUM [...] oz) Estimated Needs: Kcal: 22-25 kcal/kg IBW (6438-5261 kcal/d) Protein: 2-2.5 g/kg IBW (136-171 g/d) [...] 2 carpal tunnel surgeries - Aug CHOLECYSTECTOMY 1995 HAND SURGERY Left 2022 carpal tunnel HYSTERECTOMY [...] decreased. Palpations: Abdomen is soft. Skin: Comments: [id number] open wound with no extension of cellulitis. [...] PEEP (cmH2O): 18 S VT: 450 mL MS SUP: 10 cm H20 Insp Time (sec): 0.8 sec Vent Mode: PS FiO2 (%): 50 % S RR: 22 S VT: 450 mL MS SUP: 10 cm H20 MAP (cm H2O): 10 Output by Drain (mL) 07/07/25 0700 - 07/07/25 1859 07/07/25 1900 - 07/08/25 0659 07/08/25 0700 - 07/08/25 1859 07/08/25 1900 - 07/09/25 0659 07/09/25 07 - 07/09/25 1611 Requested LDAs do not [...] respiratory support. Wean as tolerated. Septic shock ([facility]) Yes Overview Signed 07/09/2025 3:58 PM by Lidia Ellis MD - Septic shock secondary to necrotizing fascitis. - Requiring Levophed for circulatory support. Wean as tolerated. Chronic obstructive pulmonary disease, unspecified ([facility]) Yes Overview Addendum 07/09/2025 4:10 PM by [...] Morbid (severe) obesity due to excess calories ([facility]) Yes Overview Addendum 07/09/2025 4:07 PM by Lidia Ellis MD Complicates care. Smoker Yes Overview Signed 07/09/2025 3:05 PM by Lidia Ellis MD - Patient smokes 0.5-1ppd. - Smoking cessation when appropriate. Urge incontinence Yes DM (diabetes mellitus) ([facility]) Yes Overview Addendum 07/09/2025 4:11 PM by Lidia Ellis MD - Patient hyperglycemic, up to 300s. - Insulin drip per protocol. Hidradenitis Yes Absence seizure ([facility]) (Chronic) Yes Overview Addendum 07/09/2025 4:08 PM [...] PM EDT Operative Note Date: 07/08/25 Location: [facility] Name: Cristina Brown, : 1975, Diagnoses: Pre-op Diagnosis Necrotizing fasciitis (CMS/HCC) Post-op Diagnosis Necrotizing fasciitis (CMS/HCC) Procedure(s): Excisional debridement of right thigh, groin pubis and abdominal wall including skin, subcutaneous tissue and fascia measuring 65 x 20 x 2cm Attending Surgeon(s): * Luanne Crawford - Primary Paste Maker(s): * Kristy Fields MD - Resident - [...] mL Completed 07/08/25 2342 Estimated Blood Loss: 1000cc Drains: Urethral Catheter Temperature probe 16 Fr. (Active) Specimen: right thigh skin and subcutaneous tissue Findings: necrotizing fasciitis involving right leg, groin, abdominal wall Indications: Cristina Brown is an 50 y.o. female who is having surgery for Necrotizing fasciitis ([facility]). Patient presented as transfer from OSH with [...] 07/08/2025 9:01 PM EDT Date: 07/09/25 Location: [facility] Name: Cristina rBown, : 1975, Diagnoses: Pre-op Diagnosis Necrotizing fasciitis (CMS/HCC) Post-op Diagnosis Necrotizing fasciitis (CMS/HCC) Procedure(s): Excisional debridement of right lower extremity, groin, pubis, and abdominal wall of skin, subcutaneous tissue, and muscle fascia, 65x20 cm Attending Surgeon(s): * Luanne Crawford - Primary Paste Maker(s): * Kristy Fields MD - Resident - Assisting Anesthesia: General ASA: III Blood Administration: Blood Product Administration History Product Date Volume Status Transfuse RBC RBC 07/08/2025 350 mL Completed 07/08/252341 Transfuse fresh frozen plasma Plasma 07/08/2025 300 mL Completed 07/08/252341 Transfuse RBC RBC 07/08/2025 350 mL Completed 07/08/252341 Transfuse fresh frozen plasma Plasma 07/08/2025 300 mL Completed 07/08/252341 Estimated Blood Loss: 1000 mL Drains: Urethral Catheter Temperature probe 16 Fr. (Active) Site Assessment Clean;Skin intact 07/09/25 0000 CAUTI: Collection Container Standard drainage bag;System closed;Collection container below bladder and tubing free of kinks 07/09/25 CAUTI: Securement Method Securing device (Describe) 07/09/25 CAUTI: Specimen Collection Port Covered with Alcohol Cap Yes 07/09/25 0000 CAUTI: Urinary Catheter Indication Yes, meets indication [...] anxiety, asthma, HLD, celiac disease, presenting to [facility] on 07/08/2025 as transfer with concern [...] Anxiety, Asthma, Carpal tunnel syndrome, Depression, Diabetes ([facility]), H/O absence seizures, Hidradenitis, High cholesterol, Hypertension, [...] Morbid (severe) obesity due to excess calories ([facility]) Overview Signed 08/31/2023 9:36 AM by Janell [...] mL IVPB (vial adapter required) 2 g [id number] Deepthi Garcia MD linezolid (Zyvox) injection 600 mg 600 mg Intravenous q12h Deepthi Garcia MD 600 mL/hr at 07/08/25 1820 600 mg at 07/08/25 1820 metroNIDAZOLE (Flagyl) IVPB 500 mg 500 mg Intravenous q8h Deepthi Garcia MD norepinephrine 8 mg/250 mL (0.032 mg/mL) infusion 0.02-0.4 mcg/kg/min Intravenous Titrated Deepthi Garcia MD 13.28 mL/hr at 07/08/25 1816 0.04 mcg/kg/min at 07/08/25 1452 Current Outpatient Medications Medication Sig Dispense Refill [...] ppd), asthma, HLD, celiac disease, presenting to [facility] on 07/08/2025 as transfer with concern [...] Source Heart Rate Source Patient Position 07/08/25 18007/08/25 18007/08/25 18007/08/25 2334 93 % Oral Monitor Lying BP [...] to 07/08/20251955 Date/Time Order Dose Route Action 07/08/2025 1816 EDT norepinephrine 8 mg/250 mL (0.032 mg/mL) [...] 4% (Hibiclens). Acknowledged AMINA RAMIREZ 07/08/251916 Void documentation nurse to OR Once Acknowledged AMINA RAMIREZ 07/08/251916 Case Request Operating Room: IRRIGATION AND DEBRIDEMENT, WOUND Once Completed AMINA RAMIREZ 07/08/25 181 Once Canceled MY CHARLES Carlos 07/08/25 181 Once Canceled GARCIADEEPTHI 07/08/25 180 CMP STAT Final result MY CHARLES Carlos 07/08/25 180 CBC w/diff STAT Final result MY CHARLES 07/08/25 180 PT-INR STAT Final result MY CHARLES Carlos 07/08/25 180 Type and screen Start now Final result MY CHARLES Carlos 07/08/25 180 Lactic acid, venous STAT Final result MY CHARLES N 07/08/25 180 C-Reactive protein STAT Final result MY CHARLES Carlos 07/08/25 180 Blood Culture (Aerobic/Anaerobet Set) STAT Acknowledged MY CHARLES Carlos 07/08/25 180 Blood Culture (Aerobic/Anaerobet Set) STAT Acknowledged MY CHARLES Carlos 07/08/25 180 Hepatitis C Antibody - ED Once Final result MY CHARLES Carlos 07/08/25 180 ED Protocol - HIV 1/2 Antibody/Antigen Screen Once Final result MY CHARLES Carlos 07/08/25 180 ED HIV 1/2 Antibody/Antigen Screen w/Reflex to HIV 1/2 Differentiation PROCEDURE ONCE Final result MY CHARLES Carlos 07/08/25 180 Consult to Emergency General Surgery Once Provider: (Not yet assigned) Completed DEEPTHI GARCIA Richelle ED Course as of 07/09/25 013TueJul 08, 20251818 Upon arrival patient was stable [...] [MR] 1916 Lactic acid, venous(!) elevated [MR] 2000 C-Reactive protein(!) elevated [MR] TueJul 09, 2025 0131 Blood cultures ordered and pending [MR] 0131 CMP(!) Based on labs, patient with LRINEC score of 13-high risk [MR] ED Course User Index [MR] Deepthi Garcia MD Clinical Impressions as of 07/09/25 0133 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) Social Determinates of Health Risks (including Economic [...] None Disposition Admit Admitting/Attending Physician: LUANNE CRAWFORD [[id number]] Provider Care Team: [facility] ICU 1 [159] Are [...] documented. * ED Triage Notes - Kadi Bustamante RN - 07/08/2025 5:58 PM EDT Pt had redness to right groin/thigh and now has nec fas. Was hypotensive at OSH and started on levo. documented in this encounter Plan of Treatment Upcoming Encounters Date Type Department Care Team (Late st Contact Info) Description 08/20/2025 10:30 AM EDT Office Visit [facility] General Surgery [address] [place] [address] Lilliana Morfin APRN [address] [place] [address] Scheduled Referrals Name Type Priority Associated Diagnoses Order Schedule Discharge Ambulatory referral to NON Endocrinology Outpatient Referral Routine Morbid (severe) obesity due to excess calories (CMS/HCC) Type 2 diabetes mellitus with hyperglycemia, without long-term current use of insulin (CMS/HCC) Celiac disease Expected: 07/15/2025 (Approximate), Expires: 01/16/2027 [...] UNSOLICITED RESULTS Routine 07/11/2025 9:57 AM EDT [facility], E/M 30-74 MINUTES Routine 07/11/2025 8:41 AM EDT Necrotizing fasciitis (CMS/HCC) Morbid (severe) obesity due to excess calories (CMS/HCC) Septic shock (CMS/HCC) Type 2 diabetes mellitus with hyperglycemia, without long-term current use of insulin ([facility]) Respiratory insufficiency POCT GLUCOSE METER UNSOLICITED RESULTS [...] ECG ADULT STAT 07/10/2025 8:42 AM EDT [facility] CRITICAL CARE, E/M 30-74 MINUTES Routine 07/10/2025 [...] CO2 MONITORING Routine 07/09/2025 8:00 AM EDT MS CRITICAL CARE, E/M 30-74 MINUTES Routine 07/09/2025 [...] UNSOLICITED RESULTS Routine 07/08/2025 8:51 PM EDT MS DEBRIDEMENT, SKIN, SUB-Q TISSUE,=<20 SQ CM 07/08/2025 [...] PANEL, PLASMA STAT 07/08/2025 6:14 PM EDT [facility] CRITICAL CARE, E/M 30-74 MINUTES Routine 07/08/2025 5:58 PM EDT documented in this encounter Results * (ABNORMAL) POCT glucose meter (07/19/2025 12:27 PM EDT) [facility] POCT Glucose 197(H) 74 - 99 mg/dL [...] Comment 07/19/2025 5:32 PM EDT [facility] Asic Verification Engineer ID Laura Baez 025 5:32 PM EDT [facility]ARE [facility] Device ID [id number] 07/19/2025 5:32 PM EDT [facility] Specimen Type POC Capillary 07/19/2025 5:32 PM EDT [facility] Blood Capillary blood specimen / Unknown 07/19/2025 12:27 PM EDT 07/19/2025 5:32 PM EDT us Anne Franco MD LAB POINT OF CARE TEST DOCKED DEVICE UNSOLICITED RESULTS Final Result Performing Organization Address City/[facility]/ZIP Co de Phone Number HEALTHCARE LAB [address] [place] [address] * Phosphorus (07/19/2025 4:28 AM EDT) [facility] Phosphorus, Plasma 3.6 2.5 - 4.5 mg/dL 07/19/2025 5:03 AM EDT [facility] Blood Venous blood specimen / Unknown Venipuncture / Unknown 07/19/2025 4:28 AM EDT 07/19/2025 4:35 AM EDT us Anne Franco MD LAB BLOOD ORDERABLES Sarah l Result [facility] [address] [place] [address] * (ABNORMAL) Magnesium (07/19/2025 4:28 AM EDT) Magnesium, Plasma 1.8(L) 1.9 - 2.4 mg/dL 07/19/2025 5:03 AM EDT [facility] Blood Venous blood specimen / Unknown Venipuncture / Unknown 07/19/2025 4:28 AM EDT 07/19/2025 4:35 AM EDT us Anne Franco MD LAB BLOOD ORDERABLES Sarah bennett Result [facility] [address] [place] [address] * (ABNORMAL) CBC W/O Differential (07/19/2025 4:28 AM EDT) WBC Count 18.39(H) 3.70 - 10.30 10*3/uL LAB HEMATOLOGY METHOD 07/19/2025 4:51 AM EDT [facility] RBC Count 3.50(L) 3.90 - 5.20 10*6/uL LAB HEMATOLOGY METHOD 07/19/2025 4:51 AM EDT [facility] HGB 9.6(L) 11.2 - 15.7 g/dL LAB HEMATOLOGY METHOD 07/19/2025 4:51 AM EDT [facility] HCT 30.7(L) 34.0 - 45.0 % LAB HEMATOLOGY METHOD 07/19/2025 4:51 AM EDT [facility] Platelet Count 627(H) 155 - 369 10*3/uL LAB HEMATOLOGY METHOD 07/19/2025 4:51 AM EDT [facility] MCV 88 79 - 98 fL LAB HEMATOLOGY METHOD 07/19/2025 4:51 AM EDT [facility] MCH 27.4 26.0 - 32.0 pg LAB HEMATOLOGY METHOD 07/19/2025 4:51 AM EDT [facility] MCHC 31.3 30.7 - 35.5 g/dL LAB HEMATOLOGY METHOD 07/19/2025 4:51 AM EDT [facility] RDW 18.2(H) 11.5 - 14.5 % LAB HEMATOLOGY METHOD 07/19/2025 4:51 AM EDT [facility] MPV 10.2 8.8 - 12.5 fL LAB HEMATOLOGY METHOD 07/19/2025 4:51 AM EDT [facility] nRBC 0.1(H) <=0.0 per 100 WBCs LAB HEMATOLOGY METHOD 07/19/2025 4:51 AM EDT [facility] Blood Venous blood specimen / Unknown Venipuncture / Unknown 07/19/2025 4:28 AM EDT 07/19/2025 4:36 AM EDT us Anne Franco MD LAB BLOOD ORDERABLES Sarah bennett Result [facility] [address] [place] [address] * (ABNORMAL) Basic metabolic panel (07/19/2025 4:28 AM EDT) Glucose, Plasma 153(H) 74 - 99 mg/dL 07/19/2025 5:03 AM EDT [facility] BUN, Plasma 14 7 - 21 mg/dL 07/19/2025 5:03 AM EDT [facility] Creatinine, Plasma 0.73 0.60 - 1.10 mg/dL 07/19/2025 5:03 AM EDT [facility] BUN/Creatinine Ratio 19 07/19/2025 5:03 AM EDT [facility] Sodium, Plasma 137 136 - 145 mmol/L 07/19/2025 5:03 AM EDT [facility] Potassium, Plasma 4.3 3.6 - 4.9 mmol/L 07/19/2025 5:03 AM EDT [facility] Chloride, Plasma 97 97 - 107 mmol/L 07/19/2025 5:03 AM EDT [facility] CO2, Plasma 28 22 - 29 mmol/L 07/19/2025 5:03 AM EDT [facility] Anion Gap 12 6 - 16 mmol/L 07/19/2025 5:03 AM EDT [facility] Total Calcium, Plasma 9.0 8.9 - 10.2 mg/dL 07/19/2025 5:03 AM EDT [facility] eGFRcr 101.0 mL/min/1.7 3m*2 07/19/2025 5:03 AM EDT [facility] Comment:Reported eGFRcr in m L/min/1.73m2 is based the CKD-EPI 2020 equation that does not use a race coefficient. Blood Venous blood specimen / Unknown Venipuncture / Unknown 07/19/2025 4:28 AM EDT 07/19/2025 4:35 AM EDT Anne Franco MD LAB BLOOD ORDERABLES Sarah l Result Performing Organization Address City/[facility]/ZIP Co de Phone Number [facility] [address] [place] [address] * (ABNORMAL) POCT glucose meter (07/18/2025 8:33 PM EDT) POCT Glucose 141(H) 74 - 99 mg/dL 07/18/2025 8:36 PM EDT [facility] Comment:Accuracy of a [...] Comment 07/18/2025 8:36 PM EDT [facility] Asic Verification Engineer ID Zach Martinez 8:36 PM EDT [facility] Device ID [id number] 07/18/2025 8:36 PM EDT [facility] Specimen Type POC Capillary 07/18/2025 8:36 PM EDT [facility] Blood Capillary blood specimen / Unknown 07/18/2025 8:33 PM EDT 07/18/2025 8:36 PM EDT us Anne Franco MD LAB POINT OF CARE TEST DOCKED DEVICE UNSOLICITED RESULTS Final Result Performing Organization Address City/[facility]/ZIP Co de Phone Number [facility] [address] [place] [address] * (ABNORMAL) POCT glucose meter (07/18/2025 6:07 PM EDT) [facility] POCT Glucose 222(H) 74 - 99 mg/dL [...] Comment 07/18/2025 6:08 PM EDT [facility] Asic Verification Engineer ID Monique Jacques 6:08 PM EDT [facility] Device ID [id number] 07/18/2025 6:08 PM EDT [facility] Specimen Type POC Capillary 07/18/2025 6:08 PM EDT [facility] Blood Capillary blood specimen / Unknown 07/18/2025 6:07 PM EDT 07/18/2025 6:08 PM EDT Anne Franco MD LAB POINT OF CARE TEST DOCKED DEVICE UNSOLICITED RESULTS Final Result Performing Organization Address City/State/[facility] Co de Phone Number [facility]ARE LAB [address] [place] [address] * (ABNORMAL) POCT glucose meter (07/18/2025 12:36 PM EDT) [facility] POCT Glucose 151(H) 74 - 99 mg/dL 07/18/2025 12:38 PM EDT [facility] Comment:Accuracy of [...] for testing. Comment 07/18/2025 12:38 PM EDT [facility] Asic Verification Engineer ID Laura Baez 025 12:38 PM EDT [facility] Device ID [id number] 07/18/2025 12:38 PM EDT [facility] Specimen Type POC Capillary 07/18/2025 12:38 PM EDT [facility] Blood Capillary blood specimen / Unknown 07/18/2025 12:36 PM EDT 07/18/2025 12:38 PM EDT Anne Franco MD LAB POINT OF CARE TEST DOCKED DEVICE UNSOLICITED RESULTS Final Result Performing Organization Address City/[facility] Co de Phone Number [facility] [address] [place] [address] * (ABNORMAL) POCT glucose meter (07/18/2025 8:39 [...] Comment 07/18/2025 8:41 AM EDT [facility] Asic Verification Engineer ID BaezLaura 025 8:41 AM EDT [facility] Device ID [id number] 07/18/2025 8:41 AM EDT [facility] Specimen Type POC Capillary 07/18/2025 8:41 AM EDT [facility] Blood Capillary blood specimen / Unknown 07/18/2025 8:39 AM EDT 07/18/2025 8:41 AM EDT Anne Franco MD LAB POINT OF CARE TEST DOCKED DEVICE UNSOLICITED RESULTS Final Result Performing Organization Address City/[facility]/ZIP Co de Phone Number [facility] [address] [place] [address] * (ABNORMAL) Basic metabolic panel (07/18/2025 6:03 AM EDT) Glucose, Plasma 163(H) 74 - 99 mg/dL 07/18/2025 6:45 AM EDT [facility] BUN, Plasma 11 7 - 21 mg/dL 07/18/2025 6:45 AM EDT [facility] Creatinine, Plasma 0.65 0.60 - 1.10 mg/dL 07/18/2025 6:45 AM EDT [facility] BUN/Creatinine Ratio 17 07/18/2025 6:45 AM EDT [facility] Sodium, Plasma 138 136 - 145 mmol/L 07/18/2025 6:45 AM EDT [facility] Potassium, Plasma 3.8 3.6 - 4.9 mmol/L 07/18/2025 6:45 AM EDT [facility] Chloride, Plasma 99 97 - 107 mmol/L 07/18/2025 6:45 AM EDT [facility] CO2, Plasma 29 22 - 29 mmol/L 07/18/2025 6:45 AM EDT [facility] Anion Gap 10 6 - 16 mmol/L 07/18/2025 6:45 AM EDT [facility] Total Calcium, Plasma 8.5(L) 8.9 - 10.2 mg/dL 07/18/2025 6:45 AM EDT [facility] eGFRcr 108.1 mL/min/1.7 3m*2 07/18/2025 6:45 AM EDT [facility] Comment:Reported eGFRcr in m L/min/1.73m2 is based the CKD-EPI 2020 equation that does not use a race coefficient. Blood Venous blood specimen / Unknown Venipuncture / Unknown 07/18/2025 6:03 AM EDT 07/18/2025 6:12 AM EDT us Anne Franco MD LAB BLOOD ORDERABLES Sarah bennett Result [facility] [address] [place] [address] * (ABNORMAL) CBC W/O Differential (07/18/2025 6:03 AM EDT) WBC Count 16.76(H) 3.70 - 10.30 10*3/uL LAB HEMATOLOGY METHOD 07/18/2025 6:25 AM EDT [facility] RBC Count 3.25(L) 3.90 - 5.20 10*6/uL LAB HEMATOLOGY METHOD 07/18/2025 6:25 AM EDT [facility] HGB 9.1(L) 11.2 - 15.7 g/dL LAB HEMATOLOGY METHOD 07/18/2025 6:25 AM EDT [facility] HCT 28.8(L) 34.0 - 45.0 % LAB HEMATOLOGY METHOD 07/18/2025 6:25 AM EDT [facility] Platelet Count 523(H) 155 - 369 10*3/uL LAB HEMATOLOGY METHOD 07/18/2025 6:25 AM EDT [facility] MCV 89 79 - 98 fL LAB HEMATOLOGY METHOD 07/18/2025 6:25 AM EDT [facility] MCH 28.0 26.0 - 32.0 pg LAB HEMATOLOGY METHOD 07/18/2025 6:25 AM EDT [facility] MCHC 31.6 30.7 - 35.5 g/dL LAB HEMATOLOGY METHOD 07/18/2025 6:25 AM EDT [facility] RDW 17.6(H) 11.5 - 14.5 % LAB HEMATOLOGY METHOD 07/18/2025 6:25 AM EDT [facility] MPV 10.3 8.8 - 12.5 fL LAB HEMATOLOGY METHOD 07/18/2025 6:25 AM EDT [facility] nRBC 0.0 <=0.0 per 100 WBCs LAB HEMATOLOGY METHOD 07/18/2025 6:25 AM EDT [facility] Blood Venous blood specimen / Unknown Venipuncture / Unknown 07/18/2025 6:03 AM EDT 07/18/2025 6:12 AM EDT us Anne Franco MD LAB BLOOD ORDERABLES Sarah bennett Result [facility] [address] [place] [address] * (ABNORMAL) POCT glucose meter (07/17/2025 10:33 PM EDT) [facility] POCT Glucose 171(H) 74 - 99 mg/dL 07/17/2025 10:35 PM EDT [facility] Comment:Accuracy of a [...] for testing. Comment 07/17/2025 10:35 PM EDT [facility] Asic Verification Engineer ID Tha, 07/17/2025 10:35 PM EDT [facility] Device ID [id number] 07/17/2025 10:35 PM EDT [facility] Specimen Type POC Capillary 07/17/2025 10:35 PM EDT [facility] Blood Capillary blood specimen / Unknown 07/17/2025 10:33 PM EDT 07/17/2025 10:35 PM EDT Anne Franco MD LAB POINT OF CARE TEST DOCKED DEVICE UNSOLICITED RESULTS Final Result Performing Organization Address City/State/[facility] Phone Number [facility]ARE [facility] [address] [place] [address] * PERIPHERAL IV (SMART[employer] LINK) (07/17/2025 5:14 PM EDT) Narrative Arturo Mancilla RN - 07/17/2025 5:14 PM EDT Arturo Mancilla RN 07/17/2025 5:14 PM Insert peripheral IV Performed by: Arturo Mancilla, RN Authorized by: Anne Franco MD Hand [...] Comment 07/17/2025 5:12 PM EDT [facility] Asic Verification Engineer ID Monique Jacques 5:12 PM EDT [facility] Device ID [id number] 07/17/2025 5:12 PM EDT [facility] Specimen Type POC Capillary 07/17/2025 5:12 PM EDT [facility] Blood Capillary blood specimen / Unknown 07/17/2025 5:10 PM EDT 07/17/2025 5:12 PM EDT Anne Franco MD LAB POINT OF CARE TEST DOCKED DEVICE UNSOLICITED RESULTS Final Result Performing Organization Address City/State/[facility] Co de Phone Number [facility] [address] [place] [address] * (ABNORMAL) POCT glucose meter (07/17/2025 12:06 PM EDT) [facility] POCT Glucose 211(H) 74 - 99 mg/dL [...] Comment 07/17/2025 12:07 PM EDT [facility] Asic Verification Engineer ID Josi Ann 12:07 PM EDT [facility] Device ID [id number] 07/17/2025 12:07 PM EDT [facility] Specimen Type POC Capillary 07/17/2025 12:07 PM EDT [facility] Blood Capillary blood specimen / Unknown 07/17/2025 12:06 PM EDT 07/17/2025 12:07 PM EDT us Anne Franco MD LAB POINT OF CARE TEST DOCKED DEVICE UNSOLICITED RESULTS Final Result [facility] [address] [place] [address] * US Extremity Limited MSK or Soft [...] Detected Not Detected 07/17/2025 12:11 PM EDT [facility] Swab Both anterior nares / Unknown Non-blood Collection / Unknown 07/17/2025 10:14 AM EDT 07/17/2025 10:33 AM EDT Narrative [facility] - 07/17/2025 12:11 PM [...] ORDER LUANNE Final Result Performing Organization Address City/[facility] Co de Phone Number [facility] [address] [place] [address] * (ABNORMAL) POCT glucose meter (07/17/2025 9:35 AM EDT) POCT Glucose 139(H) 74 - 99 mg/dL 07/17/2025 9:37 AM EDT [facility] Comment:Accuracy of a glucos e result [...] for testing. Comment 07/17/2025 9:37 AM EDT [facility] Asic Verification Engineer ID Josi Ann 9:37 AM EDT [facility] Device ID [id number] 07/17/2025 9:37 AM EDT [facility] Specimen Type POC Capillary 07/17/2025 9:37 AM EDT [facility] Blood Capillary blood specimen / Unknown 07/17/2025 9:35 AM EDT 07/17/2025 9:37 AM EDT us Anne Franco MD LAB POINT OF CARE TEST DOCKED DEVICE UNSOLICITED RESULTS Final Result Performing Organization Address City/[facility] Co de Phone Number [facility] [address] [place] [address] * (ABNORMAL) Basic metabolic panel (07/17/2025 5:20 AM EDT) Glucose, Plasma 140(H) 74 - 99 mg/dL 07/17/2025 5:56 AM EDT [facility] BUN, Plasma 8 7 - 21 mg/dL 07/17/2025 5:56 AM EDT [facility] Creatinine, Plasma 0.59(L) 0.60 - 1.10 mg/dL 07/17/2025 5:56 AM EDT [facility] BUN/Creatinine Ratio 14 07/17/2025 5:56 AM EDT [facility] Sodium, Plasma 139 136 - 145 mmol/L 07/17/2025 5:56 AM EDT [facility] Potassium, Plasma 3.8 3.6 - 4.9 mmol/L 07/17/2025 5:56 AM EDT [facility] Chloride, Plasma 97 97 - 107 mmol/L 07/17/2025 5:56 AM EDT [facility] CO2, Plasma 31(H) 22 - 29 mmol/L 07/17/2025 5:56 AM EDT [facility] Anion Gap 11 6 - 16 mmol/L 07/17/2025 5:56 AM EDT [facility] Total Calcium, Plasma 8.6(L) 8.9 - 10.2 mg/dL 07/17/2025 5:56 AM EDT [facility] eGFRcr 110.6 mL/min/1.7 3m*2 07/17/2025 5:56 AM EDT [facility] Comment:Reported eGFRcr in m L/min/1.73m2 is based the CKD-EPI 2020 equation that does not use a race coefficient. Blood Venous blood specimen / Unknown Venipuncture / Unknown 07/17/2025 5:20 AM EDT 07/17/2025 5:27 AM EDT us Anne Franco MD LAB BLOOD ORDERABLES Sarah sabrina Result [facility] [address] [place] [address] * Phosphorus, Plasma (07/17/2025 5:20 AM EDT) Phosphorus, Plasma 3.0 2.5 - 4.5 mg/dL 07/17/2025 5:56 AM EDT [facility] Blood Venous blood specimen / Unknown Venipuncture / Unknown 07/17/2025 5:20 AM EDT 07/17/2025 5:27 AM EDT us Anne Franco MD LAB BLOOD ORDERABLES Sarah l Result Performing Organization Address City/[facility]/ZIP Co de Phone Number [facility] [address] [place] [address] * (ABNORMAL) Magnesium, Plasma (07/17/2025 5:20 AM EDT) Pathologist [facility] Magnesium, Plasma 1.8(L) 1.9 - 2.4 mg/dL 07/17/2025 5:56 AM EDT [facility] Blood Venous blood specimen / Unknown Venipuncture / Unknown 07/17/2025 5:20 AM EDT 07/17/2025 5:27 AM EDT us Anne Franco MD LAB BLOOD ORDERABLES Sarah l Result [facility] [address] [place] [address] * (ABNORMAL) CBC W/O Differential (07/17/2025 5:20 AM EDT) [facility] WBC Count 22.29(H) 3.70 - 10.30 10*3/uL LAB HEMATOLOGY METHOD 07/17/2025 5:37 AM EDT [facility] RBC Count 3.36(L) 3.90 - 5.20 10*6/uL LAB HEMATOLOGY METHOD 07/17/2025 5:37 AM EDT [facility] HGB 9.2(L) 11.2 - 15.7 g/dL LAB HEMATOLOGY METHOD 07/17/2025 5:37 AM EDT [facility] HCT 29.4(L) 34.0 - 45.0 % LAB HEMATOLOGY METHOD 07/17/2025 5:37 AM EDT [facility] Platelet Count 484(H) 155 - 369 10*3/uL LAB HEMATOLOGY METHOD 07/17/2025 5:37 AM EDT [facility] MCV 88 79 - 98 fL LAB HEMATOLOGY METHOD 07/17/2025 5:37 AM EDT [facility] MCH 27.4 26.0 - 32.0 pg LAB HEMATOLOGY METHOD 07/17/2025 5:37 AM EDT [facility] MCHC 31.3 30.7 - 35.5 g/dL LAB HEMATOLOGY METHOD 07/17/2025 5:37 AM EDT [facility] RDW 17.3(H) 11.5 - 14.5 % LAB HEMATOLOGY METHOD 07/17/2025 5:37 AM EDT [facility] MPV 10.4 8.8 - 12.5 fL LAB HEMATOLOGY METHOD 07/17/2025 5:37 AM EDT [facility] nRBC 0.1(H) <=0.0 per 100 WBCs LAB HEMATOLOGY METHOD 07/17/2025 5:37 AM EDT [facility] Blood Venous blood specimen / Unknown Venipuncture / Unknown 07/17/2025 5:20 AM EDT 07/17/2025 5:27 AM EDT us Anne Franco MD LAB BLOOD ORDERABLES Sarah l Result [facility] [address] [place] [address] * (ABNORMAL) POCT glucose meter (07/16/2025 8:24 PM EDT) Pathologist [facility] POCT Glucose 162(H) 74 - 99 mg/dL 07/16/2025 8:26 PM EDT [facility] Comment:Accuracy of [...] for testing. Comment 07/16/2025 8:26 PM EDT [facility] Asic Verification Engineer ID Lacie Marcelo 07/16/20 25 8:26 PM EDT [facility]ALTH[facility]ARE LAB Device ID [id number] 07/16/2025 8:26 PM EDT [facility] LAB Specimen Type POC Capillary 07/16/2025 8:26 PM EDT [facility] Blood Capillary blood specimen / Unknown 07/16/2025 8:24 PM EDT 07/16/2025 8:26 PM EDT Anne Franco MD LAB POINT OF CARE TEST DOCKED DEVICE UNSOLICITED RESULTS Final Result Performing Organization Address City/[facility] Co de Phone Number [facility] [address] [place] [address] * (ABNORMAL) POCT glucose meter (07/16/2025 5:34 PM EDT) [facility] Signature POCT Glucose 190(H) 74 - 99 mg/dL [...] 07/16/2025 5:36 PM EDT [facility] Asic Verification Engineer ID Diego Munroe 07/16/20 25 5:36 PM EDT [facility]ALTH[facility]ARE LAB Device ID [id number] 07/16/2025 5:36 PM EDT [facility] LAB Specimen Type POC Capillary 07/16/2025 5:36 PM EDT [facility] Blood Capillary blood specimen / Unknown 07/16/2025 5:34 PM EDT 07/16/2025 5:36 PM EDT us Anne Franco MD LAB POINT OF CARE TEST DOCKED DEVICE UNSOLICITED RESULTS Final Result Performing Organization Address City/[facility]/ZIP Co de Phone Number [facility] [address] [place] [address] * (ABNORMAL) POCT glucose meter (07/16/2025 12:06 [...] Comment 07/16/2025 12:08 PM EDT [facility] Asic Verification Engineer ID Diego Munroe 07/16/20 12:08 PM EDT [facility] LAB Device ID [id number] 07/16/2025 12:08 PM EDT [facility] LAB Specimen Type POC Capillary 07/16/2025 12:08 PM EDT [facility] Blood Capillary blood specimen / Unknown 07/16/2025 12:06 PM EDT 07/16/2025 12:08 PM EDT Anne Franco MD LAB POINT OF CARE TEST DOCKED DEVICE UNSOLICITED RESULTS Final Result [facility] [address] [place] [address] * XR Chest 1 View (07/16/2025 11:25 [...] - 99 mg/dL 07/16/2025 8:24 AM EDT [facility] Comment:Accuracy of a glucos e result [...] for testing. Comment 07/16/2025 8:24 AM EDT [facility] Asic Verification Engineer ID Diego Munroe 07/16/20 8:24 AM EDT HEALTHCARE LAB Device ID [id number] 07/16/2025 8:24 AM EDT [facility] LAB Specimen Type POC Capillary 07/16/2025 8:24 AM EDT [facility] Blood Capillary blood specimen / Unknown 07/16/2025 8:22 AM EDT 07/16/2025 8:24 AM EDT us Anne Franco MD LAB POINT OF CARE TEST DOCKED DEVICE UNSOLICITED RESULTS Final Result Performing Organization Address City/[facility] Co de Phone Number [facility] [address] [place] [address] * Phosphorus (07/16/2025 5:25 AM EDT) Phosphorus, Plasma 2.8 2.5 - 4.5 mg/dL 07/16/2025 7:12 AM EDT [facility] Blood Venous blood specimen / Unknown Venipuncture / Unknown 07/16/2025 5:25 AM EDT 07/16/2025 5:33 AM EDT us Anne Franco MD LAB BLOOD ORDERABLES Sarah l Result [facility] [address] [place] [address] * (ABNORMAL) Magnesium (07/16/2025 5:25 AM EDT) Magnesium, Plasma 1.8(L) 1.9 - 2.4 mg/dL 07/16/2025 7:12 AM EDT [facility] Blood Venous blood specimen / Unknown Venipuncture / Unknown 07/16/2025 5:25 AM EDT 07/16/2025 5:33 AM EDT us Anne Franco MD LAB BLOOD ORDERABLES Sarah l Result [facility] [address] [place] [address] * (ABNORMAL) Basic metabolic panel (07/16/2025 5:25 AM EDT) Glucose, Plasma 149(H) 74 - 99 mg/dL 07/16/2025 6:01 AM EDT [facility] BUN, Plasma 9 7 - 21 mg/dL 07/16/2025 6:01 AM EDT [facility] Creatinine, Plasma 0.48(L) 0.60 - 1.10 mg/dL 07/16/2025 6:01 AM EDT [facility] BUN/Creatinine Ratio 19 07/16/2025 6:01 AM EDT [facility] Sodium, Plasma 140 136 - 145 mmol/L 07/16/2025 6:01 AM EDT [facility] Potassium, Plasma 3.4(L) 3.6 - 4.9 mmol/L 07/16/2025 6:01 AM EDT [facility] Chloride, Plasma 99 97 - 107 mmol/L 07/16/2025 6:01 AM EDT [facility] CO2, Plasma 31(H) 22 - 29 mmol/L 07/16/2025 6:01 AM EDT [facility] Anion Gap 10 6 - 16 mmol/L 07/16/2025 6:01 AM EDT [facility] Total Calcium, Plasma 8.6(L) 8.9 - 10.2 mg/dL 07/16/2025 6:01 AM EDT [facility] eGFRcr 116.3 mL/min/1.7 3m*2 07/16/2025 6:01 AM EDT [facility] Comment:Reported eGFRcr in m L/min/1.73m2 is based the CKD-EPI 2020 equation that does not use a race coefficient. Blood Venous blood specimen / Unknown Venipuncture / Unknown 07/16/2025 5:25 AM EDT 07/16/2025 5:33 AM EDT us Anne Franco MD LAB BLOOD ORDERABLES Sarah l Result [facility] [address] [place] [address] * (ABNORMAL) CBC W/O Differential (07/16/2025 5:25 AM EDT) WBC Count 22.22(H) 3.70 - 10.30 10*3/uL LAB HEMATOLOGY METHOD 07/16/2025 5:41 AM EDT [facility] RBC Count 3.30(L) 3.90 - 5.20 10*6/uL LAB HEMATOLOGY METHOD 07/16/2025 5:41 AM EDT [facility] HGB 8.9(L) 11.2 - 15.7 g/dL LAB HEMATOLOGY METHOD 07/16/2025 5:41 AM EDT [facility] HCT 28.9(L) 34.0 - 45.0 % LAB HEMATOLOGY METHOD 07/16/2025 5:41 AM EDT [facility] Platelet Count 376(H) 155 - 369 10*3/uL LAB HEMATOLOGY METHOD 07/16/2025 5:41 AM EDT [facility] MCV 88 79 - 98 fL LAB HEMATOLOGY METHOD 07/16/2025 5:41 AM EDT [facility] MCH 27.0 26.0 - 32.0 pg LAB HEMATOLOGY METHOD 07/16/2025 5:41 AM EDT [facility] MCHC 30.8 30.7 - 35.5 g/dL LAB HEMATOLOGY METHOD 07/16/2025 5:41 AM EDT [facility] RDW 17.2(H) 11.5 - 14.5 % LAB HEMATOLOGY METHOD 07/16/2025 5:41 AM EDT [facility] MPV 10.3 8.8 - 12.5 fL LAB HEMATOLOGY METHOD 07/16/2025 5:41 AM EDT [facility] nRBC 0.1(H) <=0.0 per 100 WBCs LAB HEMATOLOGY METHOD 07/16/2025 5:41 AM EDT [facility] Blood Venous blood specimen / Unknown Venipuncture / Unknown 07/16/2025 5:25 AM EDT 07/16/2025 5:33 AM EDT us Anne Franco MD LAB BLOOD ORDERABLES Sarah l Result Performing Organization Address City/[facility]/ZIP Co de Phone Number [facility] [address] [place] [address] * (ABNORMAL) POCT glucose meter (07/15/2025 9:38 PM EDT) POCT Glucose 173(H) 74 - 99 mg/dL [...] for testing. Comment 07/15/2025 9:39 PM EDT [facility] Asic Verification Engineer ID Yessenia Ramirez 9:39 PM EDT [facility] Device ID [id number] 07/15/2025 9:39 PM EDT [facility] Specimen Type POC Capillary 07/15/2025 9:39 PM EDT [facility] Blood Capillary blood specimen / Unknown 07/15/2025 9:38 PM EDT 07/15/2025 9:39 PM EDT us Anne Franco MD LAB POINT OF CARE TEST DOCKED DEVICE UNSOLICITED RESULTS Final Result Performing Organization Address City/[facility] Co de Phone Number [facility] [address] [place] [address] * (ABNORMAL) POCT glucose meter (07/15/2025 6:03 PM EDT) POCT Glucose 234(H) 74 - 99 mg/dL [...] for testing. Comment 07/15/2025 6:04 PM EDT [facility] Asic Verification Engineer ID Venessa Amin 07/15/2025 6:04 PM EDT [facility] LAB Device ID [id number] 07/15/2025 6:04 PM EDT [facility] Specimen Type POC Capillary 07/15/2025 6:04 PM EDT [facility] Blood Capillary blood specimen / Unknown 07/15/2025 6:03 PM EDT 07/15/2025 6:04 PM EDT us Anne Franco MD LAB POINT OF CARE TEST DOCKED DEVICE UNSOLICITED RESULTS Final Result Performing Organization Address City/[facility] Co de Phone Number [facility] [address] [place] [address] * (ABNORMAL) POCT glucose meter (07/15/2025 12:38 [...] Comment 07/15/2025 12:40 PM EDT [facility] Asic Verification Engineer ID Venessa Amin 07/15/2025 12:40 PM EDT [facility] LAB Device ID [id number] 07/15/2025 12:40 PM EDT [facility] Specimen Type POC Capillary 07/15/2025 12:40 PM EDT [facility] Blood Capillary blood specimen / Unknown 07/15/2025 12:38 PM EDT 07/15/2025 12:40 PM EDT us Anne Franco MD LAB POINT OF CARE TEST DOCKED DEVICE UNSOLICITED RESULTS Final Result Performing Organization Address City/[facility]/ZIP Co de Phone Number [facility] [address] [place] [address] * (ABNORMAL) POCT glucose meter (07/15/2025 8:38 AM EDT) [facility] POCT Glucose 132(H) 74 - 99 mg/dL [...] Comment 07/15/2025 8:39 AM EDT [facility] Asic Verification Engineer ID Venessa Amin 07/15/2025 8:39 AM EDT [facility] LAB Device ID [id number] 07/15/2025 8:39 AM EDT [facility] Specimen Type POC Capillary 07/15/2025 8:39 AM EDT [facility] Blood Capillary blood specimen / Unknown 07/15/2025 8:38 AM EDT 07/15/2025 8:39 AM EDT Anne Franco MD LAB POINT OF CARE TEST DOCKED DEVICE UNSOLICITED RESULTS Final Result Performing Organization Address City/[facility]/ZIP Co de Phone Number [facility] [address] [place] [address] * (ABNORMAL) Phosphorus (07/15/2025 4:50 AM EDT) [facility] Phosphorus, Plasma 2.3(L) 2.5 - 4.5 mg/dL 07/15/2025 7:33 AM EDT [facility] Blood Venous blood specimen / Unknown Venipuncture / Unknown 07/15/2025 4:50 AM EDT 07/15/2025 4:59 AM EDT Anne Franco MD LAB BLOOD ORDERABLES Sarah l Result [facility] [address] [place] [address] * Magnesium (07/15/2025 4:50 AM EDT) [facility] Magnesium, Plasma 1.9 1.9 - 2.4 mg/dL 07/15/2025 7:33 AM EDT [facility] Blood Venous blood specimen / Unknown Venipuncture / Unknown 07/15/2025 4:50 AM EDT 07/15/2025 4:59 AM EDT us Anne Franco MD LAB BLOOD ORDERABLES Sarah sabrina Result [facility] [address] [place] [address] * (ABNORMAL) Basic metabolic panel (07/15/2025 4:50 AM EDT) Glucose, Plasma 150(H) 74 - 99 mg/dL 07/15/2025 5:31 AM EDT [facility] BUN, Plasma 11 7 - 21 mg/dL 07/15/2025 5:31 AM EDT [facility] Creatinine, Plasma 0.54(L) 0.60 - 1.10 mg/dL 07/15/2025 5:31 AM EDT [facility] BUN/Creatinine Ratio 20 07/15/2025 5:31 AM EDT [facility] Sodium, Plasma 136 136 - 145 mmol/L 07/15/2025 5:31 AM EDT [facility] Potassium, Plasma 4.1 3.6 - 4.9 mmol/L 07/15/2025 5:31 AM EDT [facility] Chloride, Plasma 95(L) 97 - 107 mmol/L 07/15/2025 5:31 AM EDT [facility] CO2, Plasma 32(H) 22 - 29 mmol/L 07/15/2025 5:31 AM EDT [facility] Anion Gap 9 6 - 16 mmol/L 07/15/2025 5:31 AM EDT [facility] Total Calcium, Plasma 8.8(L) 8.9 - 10.2 mg/dL 07/15/2025 5:31 AM EDT [facility] eGFRcr 113.0 mL/min/1.7 3m*2 07/15/2025 5:31 AM EDT [facility] Comment:Reported eGFRcr in m L/min/1.73m2 is based the CKD-EPI 2020 equation that does not use a race coefficient. Blood Venous blood specimen / Unknown Venipuncture / Unknown 07/15/2025 4:50 AM EDT 07/15/2025 4:59 AM EDT us Anne Franco MD LAB BLOOD ORDERABLES Sarah l Result [facility] [address] [place] [address] * (ABNORMAL) POCT glucose meter (07/14/2025 7:57 PM EDT) POCT Glucose 175(H) 74 - 99 mg/dL 07/14/2025 7:58 PM EDT [facility] Comment:Accuracy of [...] for testing. Comment 07/14/2025 7:58 PM EDT [facility] Asic Verification Engineer ID Bernard Chirinos 07/14/20 25 7:58 PM EDT [facility] LAB Device ID [id number] 07/14/2025 7:58 PM EDT [facility] Specimen Type POC Capillary 07/14/2025 7:58 PM EDT [facility] Blood Capillary blood specimen / Unknown 07/14/2025 7:57 PM EDT 07/14/2025 7:58 PM EDT us Anne Franco MD LAB POINT OF CARE TEST DOCKED DEVICE UNSOLICITED RESULTS Final Result [facility] [address] [place] [address] * (ABNORMAL) POCT glucose meter (07/14/2025 4:56 PM EDT) POCT Glucose 154(H) 74 - 99 mg/dL 07/14/2025 4:58 PM EDT [facility] Comment:Accuracy of [...] for testing. Comment 07/14/2025 4:58 PM EDT [facility] Asic Verification Engineer ID Riana Higgins 07/14/2025 4:58 PM EDT [facility] Device ID [id number] 07/14/2025 4:58 PM EDT [facility] Specimen Type POC Capillary 07/14/2025 4:58 PM EDT [facility] Blood Capillary blood specimen / Unknown 07/14/2025 4:56 PM EDT 07/14/2025 4:58 PM EDT us Anne Franco MD LAB POINT OF CARE TEST DOCKED DEVICE UNSOLICITED RESULTS Final Result Performing Organization Address City/State/[facility] Co de Phone Number [facility] [address] [place] [address] * (ABNORMAL) POCT glucose meter (07/14/2025 12:38 PM EDT) POCT Glucose 143(H) 74 - 99 mg/dL 07/14/2025 12:39 PM EDT [facility] Comment:Accuracy of [...] Comment 07/14/2025 12:39 PM EDT [facility] Asic Verification Engineer ID Laura Baez 025 12:39 PM EDT [facility] Device ID [id number] 07/14/2025 12:39 PM EDT [facility] Specimen Type POC Capillary 07/14/2025 12:39 PM EDT [facility] Blood Capillary blood specimen / Unknown 07/14/2025 12:38 PM EDT 07/14/2025 12:39 PM EDT us Anne Franco MD LAB POINT OF CARE TEST DOCKED DEVICE UNSOLICITED RESULTS Final Result [facility] [address] [place] [id number] * (ABNORMAL) Basic metabolic panel (07/14/2025 9:36 AM EDT) Glucose, Plasma 191(H) 74 - 99 mg/dL 07/14/2025 10:15 AM EDT [facility] BUN, Plasma 16 7 - 21 mg/dL 07/14/2025 10:15 AM EDT [facility] Creatinine, Plasma 0.61 0.60 - 1.10 mg/dL 07/14/2025 10:15 AM EDT [facility] BUN/Creatinine Ratio 26 07/14/2025 10:15 AM EDT [facility] Sodium, Plasma 138 136 - 145 mmol/L 07/14/2025 10:15 AM EDT [facility] Potassium, Plasma 3.2(L) 3.6 - 4.9 mmol/L 07/14/2025 10:15 AM EDT [facility] Chloride, Plasma 96(L) 97 - 107 mmol/L 07/14/2025 10:15 AM EDT [facility] CO2, Plasma 33(H) 22 - 29 mmol/L 07/14/2025 10:15 AM EDT [facility] Anion Gap 9 6 - 16 mmol/L 07/14/2025 10:15 AM EDT [facility] Total Calcium, Plasma 8.7(L) 8.9 - 10.2 mg/dL 07/14/2025 10:15 AM EDT [facility] eGFRcr 109.8 mL/min/1.7 3m*2 07/14/2025 10:15 AM EDT [facility] Comment:Reported eGFRcr in m L/min/1.73m2 is based the CKD-EPI 2020 equation that does not use a race coefficient. Blood Venous blood specimen / Unknown Venipuncture / Unknown 07/14/2025 9:36 AM EDT 07/14/2025 9:44 AM EDT us Anne M Detelich MD LAB BLOOD ORDERABLES Sarah l Result Performing Organization Address City/[facility]/ZIP Co de Phone Number [facility] [address] [place] [address] * (ABNORMAL) Magnesium, Plasma (07/14/2025 9:36 AM EDT) Magnesium, Plasma 1.7(L) 1.9 - 2.4 mg/dL 07/14/2025 10:15 AM EDT [facility] Blood Venous blood specimen / Unknown Venipuncture / Unknown 07/14/2025 9:36 AM EDT 07/14/2025 9:44 AM EDT us Anne Franco MD LAB BLOOD ORDERABLES Sarah l Result Performing Organization Address [facility] Co de Phone Number [facility] [address] [place] [address] * (ABNORMAL) Phosphorus, Plasma (07/14/2025 9:36 AM EDT) [facility] Phosphorus, Plasma 2.2(L) 2.5 - 4.5 mg/dL 07/14/2025 10:15 AM EDT [facility] Blood Venous blood specimen / Unknown Venipuncture / Unknown 07/14/2025 9:36 AM EDT 07/14/2025 9:44 AM EDT us Anne Franco MD LAB BLOOD ORDERABLES Sarah l Result Performing Organization Address City/[facility]/ZIP Co de Phone Number [facility] [address] [place] [address] * (ABNORMAL) CBC W/O Differential (07/14/2025 9:36 AM EDT) WBC Count 21.20(H) 3.70 - 10.30 10*3/uL LAB HEMATOLOGY METHOD 07/14/2025 9:52 AM EDT [facility] RBC Count 3.37(L) 3.90 - 5.20 10*6/uL LAB HEMATOLOGY METHOD 07/14/2025 9:52 AM EDT [facility] HGB 9.2(L) 11.2 - 15.7 g/dL LAB HEMATOLOGY METHOD 07/14/2025 9:52 AM EDT [facility] HCT 29.4(L) 34.0 - 45.0 % LAB HEMATOLOGY METHOD 07/14/2025 9:52 AM EDT [facility] Platelet Count 314 155 - 369 10*3/uL LAB HEMATOLOGY METHOD 07/14/2025 9:52 AM EDT [facility] MCV 87 79 - 98 fL LAB HEMATOLOGY METHOD 07/14/2025 9:52 AM EDT [facility] MCH 27.3 26.0 - 32.0 pg LAB HEMATOLOGY METHOD 07/14/2025 9:52 AM EDT [facility] MCHC 31.3 30.7 - 35.5 g/dL LAB HEMATOLOGY METHOD 07/14/2025 9:52 AM EDT [facility] RDW 17.2(H) 11.5 - 14.5 % LAB HEMATOLOGY METHOD 07/14/2025 9:52 AM EDT [facility] MPV 10.2 8.8 - 12.5 fL LAB HEMATOLOGY METHOD 07/14/2025 9:52 AM EDT [facility] nRBC 0.1(H) <=0.0 per 100 WBCs LAB HEMATOLOGY METHOD 07/14/2025 9:52 AM EDT [facility] Blood Venous blood specimen / Unknown Venipuncture / Unknown 07/14/2025 9:36 AM EDT 07/14/2025 9:44 AM EDT us Anne Franco MD LAB BLOOD ORDERABLES Sarah bennett Result [facility] [address] [place] [address] * (ABNORMAL) POCT glucose meter (07/14/2025 8:39 AM EDT) [facility] POCT Glucose 185(H) 74 - 99 mg/dL 07/14/2025 8:41 AM EDT [facility] Comment:Accuracy of a glucos e result [...] for testing. Comment 07/14/2025 8:41 AM EDT [facility] Asic Verification Engineer ID Laura Baez 025 8:41 AM EDT [facility] LAB Device ID [id number] 07/14/2025 8:41 AM EDT [facility] Specimen Type POC Capillary 07/14/2025 8:41 AM EDT [facility] Blood Capillary blood specimen / Unknown 07/14/2025 8:39 AM EDT 07/14/2025 8:41 AM EDT us Anne Franco MD LAB POINT OF CARE TEST DOCKED DEVICE UNSOLICITED RESULTS Final Result [facility] [address] [place] [address] * (ABNORMAL) POCT glucose meter (07/14/2025 6:18 AM EDT) [facility] POCT Glucose 178(H) 74 - 99 mg/dL 07/14/2025 6:20 AM EDT [facility] Comment:Accuracy of a [...] Comment 07/14/2025 6:20 AM EDT [facility] Asic Verification Engineer ID Rita Alejandro 6:20 AM EDT [facility] Device ID [id number] 07/14/2025 6:20 AM EDT [facility] Specimen Type POC Capillary 07/14/2025 6:20 AM EDT [facility] Blood Capillary blood specimen / Unknown 07/14/2025 6:18 AM EDT 07/14/2025 6:20 AM EDT us Anne Franco MD LAB POINT OF CARE TEST DOCKED DEVICE UNSOLICITED RESULTS Final Result [facility] [address] [place] [address] * (ABNORMAL) POCT glucose meter (07/13/2025 9:18 PM EDT) [facility] POCT Glucose 196(H) 74 - 99 mg/dL 07/13/2025 9:19 PM EDT [facility] Comment:Accuracy of [...] Comment 07/13/2025 9:19 PM EDT [facility] Asic Verification Engineer ID Yenny Tong 025 9:19 PM EDT [facility] LAB Device ID [id number] 07/13/2025 9:19 PM EDT [facility] Specimen Type POC Capillary 07/13/2025 9:19 PM EDT [facility] Blood Capillary blood specimen / Unknown 07/13/2025 9:18 PM EDT 07/13/2025 9:19 PM EDT Anne Franco MD LAB POINT OF CARE TEST DOCKED DEVICE UNSOLICITED RESULTS Final Result Performing Organization Address City/[facility]/ZIP Co de Phone Number [facility] [address] [place] [address] * (ABNORMAL) POCT glucose meter (07/13/2025 6:01 PM EDT) [facility] POCT Glucose 128(H) 74 - 99 mg/dL 07/13/2025 6:02 PM EDT [facility] Comment:Accuracy of [...] for testing. Comment 07/13/2025 6:02 PM EDT [facility] Asic Verification Engineer ID Dawson Baeza 025 6:02 PM EDT [facility] Device ID [id number] 07/13/2025 6:02 PM EDT [facility] Specimen Type POC Capillary 07/13/2025 6:02 PM EDT [facility] Blood Capillary blood specimen / Unknown 07/13/2025 6:01 PM EDT 07/13/2025 6:02 PM EDT Anne Franco MD LAB POINT OF CARE TEST DOCKED DEVICE UNSOLICITED RESULTS Final Result Performing Organization Address City/[facility] Co de Phone Number [facility] [address] [place] [address] * (ABNORMAL) POCT glucose meter (07/13/2025 12:12 PM EDT) [facility] POCT Glucose 139(H) 74 - 99 mg/dL [...] Comment 07/13/2025 12:14 PM EDT [facility] Asic Verification Engineer ID Laura Baez 025 12:14 PM EDT [facility] Device ID [id number] 07/13/2025 12:14 PM EDT [facility] Specimen Type POC Capillary 07/13/2025 12:14 PM EDT [facility] Blood Capillary blood specimen / Unknown 07/13/2025 12:12 PM EDT 07/13/2025 12:14 PM EDT Anne Franco MD LAB POINT OF CARE TEST DOCKED DEVICE UNSOLICITED RESULTS Final Result Performing Organization Address City/[facility] Co de Phone Number [facility] [address] [place] [address] * (ABNORMAL) Phosphorus (07/13/2025 10:21 AM EDT) Phosphorus, Plasma 2.2(L) 2.5 - 4.5 mg/dL 07/13/2025 11:23 AM EDT [facility] Blood Venous blood specimen / Unknown Venipuncture / Unknown 07/13/2025 10:21 AM EDT 07/13/2025 10:31 AM EDT us Luanne Crawford MD LAB BLOOD ORDERABLES Final Result Performing Organization Address [facility]/ZIP Co de Phone Number [facility] [address] [place] [address] * (ABNORMAL) Magnesium, Plasma (07/13/2025 10:21 AM EDT) Magnesium, Plasma 1.7(L) 1.9 - 2.4 mg/dL 07/13/2025 11:23 AM EDT [facility] Blood Venous blood specimen / Unknown Venipuncture / Unknown 07/13/2025 10:21 AM EDT 07/13/2025 10:31 AM EDT us Luanne Crawford MD LAB BLOOD ORDERABLES Final Result Performing Organization Address City/[facility]/ZIP Co de Phone Number [facility] [address] [place] [address] * (ABNORMAL) Basic Metabolic Panel, Plasma (07/13/2025 10:21 AM EDT) Glucose, Plasma 135(H) 74 - 99 mg/dL 07/13/2025 11:23 AM EDT [facility] BUN, Plasma 22(H) 7 - 21 mg/dL 07/13/2025 11:23 AM EDT [facility] Creatinine, Plasma 0.62 0.60 - 1.10 mg/dL 07/13/2025 11:23 AM EDT [facility] BUN/Creatinine Ratio 35 07/13/2025 11:23 AM EDT [facility] Sodium, Plasma 138 136 - 145 mmol/L 07/13/2025 11:23 AM EDT [facility] Potassium, Plasma 3.7 3.6 - 4.9 mmol/L 07/13/2025 11:23 AM EDT [facility] Chloride, Plasma 95(L) 97 - 107 mmol/L 07/13/2025 11:23 AM EDT [facility] CO2, Plasma 30(H) 22 - 29 mmol/L 07/13/2025 11:23 AM EDT [facility] Anion Gap 13 6 - 16 mmol/L 07/13/2025 11:23 AM EDT [facility] Total Calcium, Plasma 9.0 8.9 - 10.2 mg/dL 07/13/2025 11:23 AM EDT [facility] eGFRcr 109.3 mL/min/1.7 3m*2 07/13/2025 11:23 AM EDT [facility] Comment:Reported eGFRcr in m L/min/1.73m2 is based the CKD-EPI 2020 equation that does not use a race coefficient. Blood Venous blood specimen / Unknown Venipuncture / Unknown 07/13/2025 10:21 AM EDT 07/13/2025 10:31 AM EDT us Luanne Crawford MD LAB BLOOD ORDERABLES Final Result [facility] [address] [place] [address] * (ABNORMAL) CBC W/O Differential (07/13/2025 10:21 AM EDT) WBC Count 19.56(H) 3.70 - 10.30 10*3/uL LAB HEMATOLOGY METHOD 07/13/2025 10:59 AM EDT [facility] RBC Count 3.67(L) 3.90 - 5.20 10*6/uL LAB HEMATOLOGY METHOD 07/13/2025 10:59 AM EDT [facility] [facility] HGB 10.2(L) 11.2 - 15.7 g/dL LAB HEMATOLOGY METHOD 07/13/2025 10:59 AM EDT [facility] HCT 32.3(L) 34.0 - 45.0 % LAB HEMATOLOGY METHOD 07/13/2025 10:59 AM EDT [facility] Platelet Count 296 155 - 369 10*3/uL LAB HEMATOLOGY METHOD 07/13/2025 10:59 AM EDT [facility] MCV 88 79 - 98 fL LAB HEMATOLOGY METHOD 07/13/2025 10:59 AM EDT [facility] MCH 27.8 26.0 - 32.0 pg LAB HEMATOLOGY METHOD 07/13/2025 10:59 AM EDT [facility] MCHC 31.6 30.7 - 35.5 g/dL LAB HEMATOLOGY METHOD 07/13/2025 10:59 AM EDT [facility] RDW 17.6(H) 11.5 - 14.5 % LAB HEMATOLOGY METHOD 07/13/2025 10:59 AM EDT [facility] MPV 10.3 8.8 - 12.5 fL LAB HEMATOLOGY METHOD 07/13/2025 10:59 AM EDT [facility] nRBC 0.0 <=0.0 per 100 WBCs LAB HEMATOLOGY METHOD 07/13/2025 10:59 AM EDT [facility] Blood Venous blood specimen / Unknown Venipuncture / Unknown 07/13/2025 10:21 AM EDT 07/13/2025 10:31 AM EDT us Luanne Crawford MD LAB BLOOD ORDERABLES Final Result [facility] [address] [place] [address] * (ABNORMAL) POCT glucose meter (07/13/2025 8:50 AM EDT) POCT Glucose 102(H) 74 - 99 mg/dL 07/13/2025 8:53 AM EDT [facility] Comment:Accuracy of a [...] Comment 07/13/2025 8:53 AM EDT [facility] Asic Verification Engineer ID BaezLaura latham 025 8:53 AM EDT [facility] Device ID [id number] 07/13/2025 8:53 AM EDT [facility] Specimen Type POC Capillary 07/13/2025 8:53 AM EDT [facility] Blood Capillary blood specimen / Unknown 07/13/2025 8:50 AM EDT 07/13/2025 8:53 AM EDT Anne Franco MD LAB POINT OF CARE TEST DOCKED DEVICE UNSOLICITED RESULTS Final Result [facility] [address] [place] [address] * (ABNORMAL) POCT glucose meter (07/13/2025 6:11 AM EDT) POCT Glucose 111(H) 74 - 99 mg/dL 07/13/2025 6:13 AM EDT [facility] Comment:Accuracy of [...] for testing. Comment 07/13/2025 6:13 AM EDT [facility] Asic Verification Engineer ID Rita Alejandro 6:13 AM EDT [facility] Device ID [id number] 07/13/2025 6:13 AM EDT [facility] Specimen Type POC Capillary 07/13/2025 6:13 AM EDT [facility] Blood Capillary blood specimen / Unknown 07/13/2025 6:11 AM EDT 07/13/2025 6:13 AM EDT Anne Franco MD LAB POINT OF CARE TEST DOCKED DEVICE UNSOLICITED RESULTS Final Result [facility] [address] [place] [address] * (ABNORMAL) POCT glucose meter (07/12/2025 9:28 PM EDT) POCT Glucose 107(H) 74 - 99 mg/dL 07/12/2025 9:30 PM EDT [facility] Comment:Accuracy of [...] Comment 07/12/2025 9:30 PM EDT [facility] Asic Verification Engineer ID Yenny Tong 025 9:30 PM EDT [facility] Device ID [id number] 07/12/2025 9:30 PM EDT [facility] Specimen Type POC Capillary 07/12/2025 9:30 PM EDT [facility] Blood Capillary blood specimen / Unknown 07/12/2025 9:28 PM EDT 07/12/2025 9:30 PM EDT us Anne Franco MD LAB POINT OF CARE TEST DOCKED DEVICE UNSOLICITED RESULTS Final Result Performing Organization Address City/State/[facility] Co de Phone Number [facility] [address] [place] [address] * (ABNORMAL) POCT glucose meter (07/12/2025 6:04 PM EDT) POCT Glucose 129(H) 74 - 99 mg/dL 07/12/2025 6:06 PM EDT [facility] Comment:Accuracy of a [...] Comment 07/12/2025 6:06 PM EDT [facility] Asic Verification Engineer ID Jeana Bear 07/12/2025 6:06 PM EDT [facility] Device ID [id number] 07/12/2025 6:06 PM EDT [facility] Specimen Type POC Capillary 07/12/2025 6:06 PM EDT [facility] Blood Capillary blood specimen / Unknown 07/12/2025 6:04 PM EDT 07/12/2025 6:06 PM EDT us Anne Franco MD LAB POINT OF CARE TEST DOCKED DEVICE UNSOLICITED RESULTS Final Result [facility] [address] [place] [address] * PERIPHERAL IV (SMARTFORM LINK) (07/12/2025 3:51 PM EDT) Narrative Halima Live RN - 07/12/2025 3:51 PM EDT Halima Live RN 07/12/2025 3:52 PM Insert peripheral IV Performed by: Halima Live, RN Authorized by: Anne Franco MD Hand [...] POCT glucose meter (07/12/2025 11:55 AM EDT) POCT Glucose 119(H) 74 - 99 [...] 07/12/2025 11:56 AM EDT [facility] Asic Verification Engineer ID Jeana Bear 07/12/2025 11:56 AM EDT [facility] Device ID [id number] 07/12/2025 11:56 AM EDT [facility] Specimen Type POC Capillary 07/12/2025 11:56 AM EDT [facility] Blood Capillary blood specimen / Unknown 07/12/2025 11:55 AM EDT 07/12/2025 11:56 AM EDT us Dorcas Hennessy MD LAB POINT OF CARE TE ST DOCKED DEVICE UNSOLICITED RESULTS Final Result [facility] [address] [place] [address] * XR Chest 1 View (07/12/2025 11:11 [...] Moy Khoury MD on 07/12/2025 12:15 PM Anne Franco MD IMG XR PROCEDURES Final R esult * (ABNORMAL) POCT glucose meter (07/12/2025 8:41 AM EDT) POCT Glucose 128(H) 74 - 99 mg/dL 07/12/2025 8:42 AM EDT [facility] Comment:Accuracy of a [...] Comment 07/12/2025 8:42 AM EDT [facility] Asic Verification Engineer ID Jeana Bear 07/12/2025 8:42 AM EDT [facility] Device ID [id number] 07/12/2025 8:42 AM EDT [facility] Specimen Type POC Capillary 07/12/2025 8:42 AM EDT [facility] Blood Capillary blood specimen / Unknown 07/12/2025 8:41 AM EDT 07/12/2025 8:42 AM EDT us Dorcas Hennessy MD LAB POINT OF CARE TE ST DOCKED DEVICE UNSOLICITED RESULTS Final Result Performing Organization Address City/[facility]/ZIP Co de Phone Number [facility] [address] [place] [address] * Phosphorus (07/12/2025 12:25 AM EDT) Phosphorus, Plasma 2.9 2.5 - 4.5 mg/dL 07/12/2025 1:22 AM EDT [facility] Blood Venous blood specimen / Unknown Venipuncture / Unknown 07/12/2025 12:25 AM EDT 07/12/2025 12:52 AM EDT us Luanne Crawford MD LAB BLOOD ORDERABLES Final Result [facility] [address] [place] [address] * Magnesium, Plasma (07/12/2025 12:25 AM EDT) Magnesium, Plasma 2.0 1.9 - 2.4 mg/dL 07/12/2025 1:22 AM EDT [facility] Blood Venous blood specimen / Unknown Venipuncture / Unknown 07/12/2025 12:25 AM EDT 07/12/2025 12:52 AM EDT us Luanne Crawford MD LAB BLOOD ORDERABLES Final Result [facility] [address] [place] [address] * (ABNORMAL) Basic Metabolic Panel, Plasma (07/12/2025 12:25 AM EDT) Glucose, Plasma 92 74 - 99 mg/dL 07/12/2025 1:22 AM EDT [facility] BUN, Plasma 18 7 - 21 mg/dL 07/12/2025 1:22 AM EDT [facility] Creatinine, Plasma 0.84 0.60 - 1.10 mg/dL 07/12/2025 1:22 AM EDT [facility] BUN/Creatinine Ratio 21 07/12/2025 1:22 AM EDT [facility] Sodium, Plasma 142 136 - 145 mmol/L 07/12/2025 1:22 AM EDT [facility] Potassium, Plasma 3.6 3.6 - 4.9 mmol/L 07/12/2025 1:22 AM EDT [facility] Chloride, Plasma 103 97 - 107 mmol/L 07/12/2025 1:22 AM EDT [facility] CO2, Plasma 31(H) 22 - 29 mmol/L 07/12/2025 1:22 AM EDT [facility] Anion Gap 8 6 - 16 mmol/L 07/12/2025 1:22 AM EDT [facility] Total Calcium, Plasma 8.8(L) 8.9 - 10.2 mg/dL 07/12/2025 1:22 AM EDT [facility] eGFRcr 85.3 mL/min/1.7 3m*2 07/12/2025 1:22 AM EDT [facility] Comment:Reported eGFRcr in m L/min/1.73m2 is based the CKD-EPI 2020 equation that does not use a race coefficient. Blood Venous blood specimen / Unknown Venipuncture / Unknown 07/12/2025 12:25 AM EDT 07/12/2025 12:52 AM EDT us Luanne Crawford MD LAB BLOOD ORDERABLES Final Result [facility] [address] [place] [address] * (ABNORMAL) CBC W/O Differential (07/12/2025 12:25 AM EDT) WBC Count 15.81(H) 3.70 - 10.30 10*3/uL LAB HEMATOLOGY METHOD 07/12/2025 1:05 AM EDT [facility] RBC Count 3.39(L) 3.90 - 5.20 10*6/uL LAB HEMATOLOGY METHOD 07/12/2025 1:05 AM EDT [facility] HGB 9.3(L) 11.2 - 15.7 g/dL LAB HEMATOLOGY METHOD 07/12/2025 1:05 AM EDT [facility] HCT 29.8(L) 34.0 - 45.0 % LAB HEMATOLOGY METHOD 07/12/2025 1:05 AM EDT [facility] Platelet Count 276 155 - 369 10*3/uL LAB HEMATOLOGY METHOD 07/12/2025 1:05 AM EDT [facility] MCV 88 79 - 98 fL LAB HEMATOLOGY METHOD 07/12/2025 1:05 AM EDT [facility] MCH 27.4 26.0 - 32.0 pg LAB HEMATOLOGY METHOD 07/12/2025 1:05 AM EDT [facility] MCHC 31.2 30.7 - 35.5 g/dL LAB HEMATOLOGY METHOD 07/12/2025 1:05 AM EDT [facility] RDW 18.0(H) 11.5 - 14.5 % LAB HEMATOLOGY METHOD 07/12/2025 1:05 AM EDT [facility] MPV 10.5 8.8 - 12.5 fL LAB HEMATOLOGY METHOD 07/12/2025 1:05 AM EDT [facility] nRBC 0.0 <=0.0 per 100 WBCs LAB HEMATOLOGY METHOD 07/12/2025 1:05 AM EDT [facility] Blood Venous blood specimen / Unknown Venipuncture / Unknown 07/12/2025 12:25 AM EDT 07/12/2025 12:55 AM EDT Luanne Crawford MD LAB BLOOD ORDERABLES Final Result Performing Organization Address City/[facility]/ZIP Co de Phone Number [facility] [address] [place] [address] * (ABNORMAL) POCT Glucose (if patient NPO, on TPN or continuous nutrition) (07/11/2025 8:45 PM EDT) POCT Glucose 119(A) 74 - 99 mg/dL [facility] Test Strip Lot Number \[id number]\ [facility] Test Strip Expiration 09/24/2026 [facility] Blood Venous blood specimen / Unknown 07/11/2025 8:45 PM EDT us Dorcas Hennessy MD POINT OF CARE TEST ENTER/EDIT OR DERABLES Final Result Performing Organization Address [facility] Co de Phone Number [facility] [address] [place] [address] * (ABNORMAL) POCT Glucose - Before Meals and Bedtime (07/11/2025 8:43 PM EDT) [facility] POCT Glucose 119(A) 74 - 99 mg/dL [facility] Test Strip Lot Number [id number] [facility] Test Strip Expiration 09/24/2026 [facility] Blood Venous blood specimen / Unknown 07/11/2025 8:43 PM EDT us Dorcas Hennessy MD POINT OF CARE TEST ENTER/EDIT OR DERABLES Final Result Performing Organization Address City/[facility] Co de Phone Number [facility] [address] [place] [address] * (ABNORMAL) POCT glucose meter (07/11/2025 8:42 [...] 07/11/2025 8:43 PM EDT [facility] Asic Verification Engineer ID Jf Cruz 07/11/2025 8:43 PM EDT [facility] Device ID [id number] 07/11/2025 8:43 PM EDT [facility] Specimen Type POC Capillary 07/11/2025 8:43 PM EDT [facility] Blood Capillary blood specimen / Unknown 07/11/2025 8:42 PM EDT 07/11/2025 8:43 PM EDT us Dorcas Hennessy MD LAB POINT OF CARE TE ST DOCKED DEVICE UNSOLICITED RESULTS Final Result Performing Organization Address City/State/[facility] Co de Phone Number [facility] [address] [place] [address] * (ABNORMAL) POCT glucose meter (07/11/2025 5:38 PM EDT) POCT Glucose 142(H) 74 - 99 [...] for testing. Comment 07/11/2025 5:40 PM EDT [facility] Asic Verification Engineer ID Ayana Amato 07/11/2025 5:40 PM EDT [facility] Device ID [id number] 07/11/2025 5:40 PM EDT [facility] Specimen Type POC Capillary 07/11/2025 5:40 PM EDT [facility] Blood Capillary blood specimen / Unknown 07/11/2025 5:38 PM EDT 07/11/2025 5:40 PM EDT us Dorcas Hennessy MD LAB POINT OF CARE TE ST DOCKED DEVICE UNSOLICITED RESULTS Final Result [facility] [address] [place] [address] * (ABNORMAL) POCT glucose meter (07/11/2025 3:36 PM EDT) POCT Glucose 144(H) 74 - 99 mg/dL 07/11/2025 3:38 PM EDT [facility] Comment:Accuracy of a [...] for testing. Comment 07/11/2025 3:38 PM EDT [facility] Asic Verification Engineer ID Radha Frias 07/11/20 3:38 PM EDT [facility] Device ID [id number] 07/11/2025 3:38 PM EDT [facility] Specimen Type POC Venous 07/11/2025 3:38 PM EDT [facility] Blood Venous blood specimen / Unknown 07/11/2025 3:36 PM EDT 07/11/2025 3:38 PM EDT Dorcas Hennessy MD LAB POINT OF CARE TE ST DOCKED DEVICE UNSOLICITED RESULTS Final Result Performing Organization Address City/[facility]/ZIP Co de Phone Number [facility] [address] [place] [address] * (ABNORMAL) POCT glucose meter (07/11/2025 1:52 PM EDT) Pathologist [facility] POCT Glucose 140(H) 74 - 99 mg/dL [...] 07/11/2025 1:54 PM EDT [facility] Asic Verification Engineer ID Ayana Amato 07/11/2025 1:54 PM EDT [facility] Device ID [id number] 07/11/2025 1:54 PM EDT [facility] Specimen Type POC Capillary 07/11/2025 1:54 PM EDT [facility] Blood Capillary blood specimen / Unknown 07/11/2025 1:52 PM EDT 07/11/2025 1:54 PM EDT us Dorcas Hennessy MD LAB POINT OF CARE TE ST DOCKED DEVICE UNSOLICITED RESULTS Final Result Performing Organization Address City/[facility]/ZIP Co de Phone Number [facility] [address] [place] [address] * (ABNORMAL) POCT glucose meter (07/11/2025 12:12 [...] Comment 07/11/2025 12:13 PM EDT [facility] Asic Verification Engineer ID Ayana Amato 07/11/2025 12:13 PM EDT [facility] Device ID [id number] 07/11/2025 12:13 PM EDT [facility] Specimen Type POC Capillary 07/11/2025 12:13 PM EDT [facility] Blood Capillary blood specimen / Unknown 07/11/2025 12:12 PM EDT 07/11/2025 12:13 PM EDT us Luanne Crawford MD LAB POINT OF CARE TEST DOCKED DEVICE UNSOLICITED RESULTS Final Result Performing Organization Address City/[facility]/ZIP Co de Phone Number [facility] [address] [place] [address] * (ABNORMAL) POCT glucose meter (07/11/2025 9:57 [...] Comment 07/11/2025 9:59 AM EDT [facility] Asic Verification Engineer ID Ayana Amato 07/11/2025 9:59 AM EDT [facility] Device ID [id number] 07/11/2025 9:59 AM EDT [facility] Specimen Type POC Capillary 07/11/2025 9:59 AM EDT [facility] Blood Capillary blood specimen / Unknown 07/11/2025 9:57 AM EDT 07/11/2025 9:59 AM EDT Luanne Crawford MD LAB POINT OF CARE TEST DOCKED DEVICE UNSOLICITED RESULTS Final Result Performing Organization Address City/State/[facility] Co de Phone Number [facility] [address] [place] [address] * [facility] CRITICAL CARE, E/M 30-74 MINUTES (07/11/2025 8:41 [...] - 99 mg/dL 07/11/2025 8:15 AM EDT [facility] Comment:Accuracy of a glucos e result [...] for testing. Comment 07/11/2025 8:15 AM EDT [facility] Asic Verification Engineer ID Ayana Amato 07/11/2025 8:15 AM EDT [facility] Device ID [id number] 07/11/2025 8:15 AM EDT [facility] Specimen Type POC Capillary 07/11/2025 8:15 AM EDT [facility] Blood Capillary blood specimen / Unknown 07/11/2025 8:13 AM EDT 07/11/2025 8:15 AM EDT us Luanne Crawford MD LAB POINT OF CARE TEST DOCKED DEVICE UNSOLICITED RESULTS Final Result [facility] [address] [place] [address] * (ABNORMAL) POCT glucose meter (07/11/2025 6:03 AM EDT) [facility] POCT Glucose 135(H) 74 - 99 mg/dL 07/11/2025 6:05 AM EDT [facility] Comment:Accuracy of [...] Comment 07/11/2025 6:05 AM EDT [facility] Asic Verification Engineer ID Cheyanne Briceño 07/11/2025 6:05 AM EDT [facility] Device ID [id number] 07/11/2025 6:05 AM EDT [facility] Specimen Type POC Capillary 07/11/2025 6:05 AM EDT [facility] Blood Capillary blood specimen / Unknown 07/11/2025 6:03 AM EDT 07/11/2025 6:05 AM EDT us Luanne Crawford MD LAB POINT OF CARE TEST DOCKED DEVICE UNSOLICITED RESULTS Final Result Performing Organization Address City/State/[facility] Co de Phone Number [facility] [address] [place] [address] * (ABNORMAL) POCT glucose meter (07/11/2025 4:04 AM EDT) [facility] POCT Glucose 107(H) 74 - 99 mg/dL [...] Comment 07/11/2025 4:06 AM EDT [facility] Asic Verification Engineer ID Cheyanne Briceño 07/11/2025 4:06 AM EDT [facility] Device ID [id number] 07/11/2025 4:06 AM EDT [facility] Specimen Type POC Capillary 07/11/2025 4:06 AM EDT [facility] Blood Capillary blood specimen / Unknown 07/11/2025 4:04 AM EDT 07/11/2025 4:06 AM EDT Luanne Crawford MD LAB POINT OF CARE TEST DOCKED DEVICE UNSOLICITED RESULTS Final Result Performing Organization Address City/[facility]/ZIP Co de Phone Number [facility] [address] [place] [address] * (ABNORMAL) POCT glucose meter (07/11/2025 2:02 AM EDT) Pathologist [facility] POCT Glucose 130(H) 74 - 99 mg/dL [...] for testing. Comment 07/11/2025 2:03 AM EDT [facility] Asic Verification Engineer ID Cheyanne Briceño 07/11/2025 2:03 AM EDT [facility] Device ID [id number] 07/11/2025 2:03 AM EDT [facility] Specimen Type POC Capillary 07/11/2025 2:03 AM EDT [facility] Blood Capillary blood specimen / Unknown 07/11/2025 2:02 AM EDT 07/11/2025 2:03 AM EDT Luanne Crawford MD LAB POINT OF CARE TEST DOCKED DEVICE UNSOLICITED RESULTS Final Result [facility] [address] [place] [address] * Phosphorus (07/11/2025 12:09 AM EDT) Phosphorus, Plasma 3.7 2.5 - 4.5 mg/dL 07/11/2025 12:54 AM EDT [facility] Blood Venous blood specimen / Unknown Venipuncture / Unknown 07/11/2025 12:09 AM EDT 07/11/2025 12:26 AM EDT us Luanne Crawford MD LAB BLOOD ORDERABLES Final Result [facility] [address] [place] [address] * (ABNORMAL) Magnesium, Plasma (07/11/2025 12:09 AM EDT) Magnesium, Plasma 1.8(L) 1.9 - 2.4 mg/dL 07/11/2025 12:54 AM EDT [facility] Blood Venous blood specimen / Unknown Venipuncture / Unknown 07/11/2025 12:09 AM EDT 07/11/2025 12:26 AM EDT us Luanne Crawford MD LAB BLOOD ORDERABLES Final Result Performing Organization Address [facility]/ZIP Co de Phone Number [facility] [address] [place] [address] * (ABNORMAL) Basic Metabolic Panel, Plasma (07/11/2025 12:09 AM EDT) Glucose, Plasma 163(H) 74 - 99 mg/dL 07/11/2025 12:54 AM EDT [facility] BUN, Plasma 20 7 - 21 mg/dL 07/11/2025 12:54 AM EDT [facility] Creatinine, Plasma 0.99 0.60 - 1.10 mg/dL 07/11/2025 12:54 AM EDT [facility] BUN/Creatinine Ratio 20 07/11/2025 12:54 AM EDT [facility] Sodium, Plasma 141 136 - 145 mmol/L 07/11/2025 12:54 AM EDT [facility] Potassium, Plasma 3.8 3.6 - 4.9 mmol/L 07/11/2025 12:54 AM EDT [facility] Chloride, Plasma 104 97 - 107 mmol/L 07/11/2025 12:54 AM EDT [facility] CO2, Plasma 27 22 - 29 mmol/L 07/11/2025 12:54 AM EDT [facility] Anion Gap 10 6 - 16 mmol/L 07/11/2025 12:54 AM EDT [facility] Total Calcium, Plasma 9.1 8.9 - 10.2 mg/dL 07/11/2025 12:54 AM EDT [facility] eGFRcr 70.0 mL/min/1.7 3m*2 07/11/2025 12:54 AM EDT [facility] Comment:Reported eGFRcr in m L/min/1.73m2 is based the CKD-EPI 2020 equation that does not use a race coefficient. Blood Venous blood specimen / Unknown Venipuncture / Unknown 07/11/2025 12:09 AM EDT 07/11/2025 12:26 AM EDT us Luanne Crawford MD LAB BLOOD ORDERABLES Final Result [facility] [address] [place] [address] * (ABNORMAL) CBC W/O Differential (07/11/2025 12:09 AM EDT) WBC Count 13.23(H) 3.70 - 10.30 10*3/uL LAB HEMATOLOGY METHOD 07/11/2025 12:36 AM EDT [facility] RBC Count 3.65(L) 3.90 - 5.20 10*6/uL LAB HEMATOLOGY METHOD 07/11/2025 12:36 AM EDT [facility] HGB 10.1(L) 11.2 - 15.7 g/dL LAB HEMATOLOGY METHOD 07/11/2025 12:36 AM EDT [facility] HCT 32.1(L) 34.0 - 45.0 % LAB HEMATOLOGY METHOD 07/11/2025 12:36 AM EDT [facility] Platelet Count 270 155 - 369 10*3/uL LAB HEMATOLOGY METHOD 07/11/2025 12:36 AM EDT [facility] MCV 88 79 - 98 fL LAB HEMATOLOGY METHOD 07/11/2025 12:36 AM EDT [facility] MCH 27.7 26.0 - 32.0 pg LAB HEMATOLOGY METHOD 07/11/2025 12:36 AM EDT [facility] MCHC 31.5 30.7 - 35.5 g/dL LAB HEMATOLOGY METHOD 07/11/2025 12:36 AM EDT [facility] RDW 17.9(H) 11.5 - 14.5 % LAB HEMATOLOGY METHOD 07/11/2025 12:36 AM EDT [facility] MPV 10.7 8.8 - 12.5 fL LAB HEMATOLOGY METHOD 07/11/2025 12:36 AM EDT [facility] nRBC 0.0 <=0.0 per 100 WBCs LAB HEMATOLOGY METHOD 07/11/2025 12:36 AM EDT [facility] Blood Venous blood specimen / Unknown Venipuncture / Unknown 07/11/2025 12:09 AM EDT 07/11/2025 12:29 AM EDT us Luanne Crawford MD LAB BLOOD ORDERABLES Final Result [facility] [address] [place] [address] * (ABNORMAL) POCT glucose meter (07/11/2025 12:04 AM EDT) POCT Glucose 156(H) 74 - 99 mg/dL [...] Comment 07/11/2025 12:06 AM EDT [facility] Asic Verification Engineer ID Cheyanne Briceño 07/11/2025 12:06 AM EDT [facility] Device ID [id number] 07/11/2025 12:06 AM EDT [facility] Specimen Type POC Capillary 07/11/2025 12:06 AM EDT [facility] Blood Capillary blood specimen / Unknown 07/11/2025 12:04 AM EDT 07/11/2025 12:06 AM EDT us Luanne Crawford MD LAB POINT OF CARE TEST DOCKED DEVICE UNSOLICITED RESULTS Final Result [facility] [address] [place] [address] * (ABNORMAL) POCT glucose meter (07/10/2025 10:02 PM EDT) POCT Glucose 202(H) 74 - 99 mg/dL [...] for testing. Comment 07/10/2025 10:03 PM EDT [facility] Asic Verification Engineer ID Lidia Ugalde 07/10/2025 10:03 PM EDT [facility] Device ID [id number] 07/10/2025 10:03 PM EDT [facility] Specimen Type POC Capillary 07/10/2025 10:03 PM EDT [facility] Blood Capillary blood specimen / Unknown 07/10/2025 10:02 PM EDT 07/10/2025 10:03 PM EDT us Luanne Crawford MD LAB POINT OF CARE TEST DOCKED DEVICE UNSOLICITED RESULTS Final Result Performing Organization Address City/[facility]/ZIP Co de Phone Number [facility] [address] [place] [address] * (ABNORMAL) Blood gas panel, arterial (07/10/2025 8:23 PM EDT) pH, Arterial 7.30(L) 7.35 - 7.45 LAB HEMATOLOGY METHOD 07/10/2025 8:40 PM EDT [facility] pCO2, Arterial 57(H) 35 - 48 mmHg LAB HEMATOLOGY METHOD 07/10/2025 8:40 PM EDT [facility] pO2, Arterial 80(L) 83 - 108 mmHg LAB HEMATOLOGY METHOD 07/10/2025 8:40 PM EDT [facility] SO2, Measured, Arterial 95 94 - 98 % LAB HEMATOLOGY METHOD 07/10/2025 8:40 PM EDT [facility] Base Excess, Arterial 1.1 -2.0 - 3.0 mmol/L LAB HEMATOLOGY METHOD 07/10/2025 8:40 PM EDT [facility] Bicarbonate, Calculated, Arterial 28(H) 22 - 26 mmol/L LAB HEMATOLOGY METHOD 07/10/2025 8:40 PM EDT [facility] Hematocrit, Whole Blood 31.5(L) 34.0 - 45.0 % LAB HEMATOLOGY METHOD 07/10/2025 8:40 PM EDT [facility] Sodium, Whole Blood 138 136 - 145 mmol/L LAB HEMATOLOGY METHOD 07/10/2025 8:40 PM EDT [facility] Potassium, Whole Blood 3.9 3.6 - 4.9 mmol/L LAB HEMATOLOGY METHOD 07/10/2025 8:40 PM EDT [facility] Chloride, Whole Blood 103 97 - 107 mmol/L LAB HEMATOLOGY METHOD 07/10/2025 8:40 PM EDT [facility] Glucose, Whole Blood 206(H) 74 - 99 mg/dL LAB HEMATOLOGY METHOD 07/10/2025 8:40 PM EDT [facility] Ionized Calcium, Whole Blood 5.0 4.6 - 5.1 mg/dL LAB HEMATOLOGY METHOD 07/10/2025 8:40 PM EDT [facility] Lactate, Arterial, Whole Blood 1.7(H) 0.5 - 1.6 mmol/L LAB HEMATOLOGY METHOD 07/10/2025 8:40 PM EDT [facility] Blood Arterial blood specimen / Unknown Arterial Puncture / Unknown 07/10/2025 8:23 PM EDT 07/10/2025 8:35 PM EDT us Luanne Crawford MD LAB BLOOD ORDERABLES Final Result [facility] [address] [place] [address] * (ABNORMAL) POCT glucose meter (07/10/2025 8:03 PM EDT) POCT Glucose 206(H) 74 - 99 mg/dL 07/10/2025 8:05 PM EDT [facility] [facility] Comment:Accuracy of a glucos e result [...] Comment 07/10/2025 8:05 PM EDT [facility] Asic Verification Engineer ID Cheyanne Briceño 07/10/2025 8:05 PM EDT [facility] Device ID [id number] 07/10/2025 8:05 PM EDT [facility] Specimen Type POC Capillary 07/10/2025 8:05 PM EDT [facility] Blood Capillary blood specimen / Unknown 07/10/2025 8:03 PM EDT 07/10/2025 8:05 PM EDT us Luanne Crawford MD LAB POINT OF CARE TEST DOCKED DEVICE UNSOLICITED RESULTS Final Result Performing Organization Address City/State/[facility] Co de Phone Number [facility] [address] [place] [address] * (ABNORMAL) POCT glucose meter (07/10/2025 6:22 [...] Comment 07/10/2025 6:25 PM EDT [facility] Asic Verification Engineer ID Zara Segovia 025 6:25 PM EDT [facility] Device ID [id number] 07/10/2025 6:25 PM EDT [facility] Specimen Type POC Capillary 07/10/2025 6:25 PM EDT [facility] Blood Capillary blood specimen / Unknown 07/10/2025 6:22 PM EDT 07/10/2025 6:25 PM EDT us Luanne Crawford MD LAB POINT OF CARE TEST DOCKED DEVICE UNSOLICITED RESULTS Final Result Performing Organization Address City/[facility] Co de Phone Number [facility] [address] [place] [address] * (ABNORMAL) POCT glucose meter (07/10/2025 2:17 [...] Comment 07/10/2025 2:19 PM EDT [facility] Asic Verification Engineer ID SegoviaZara 025 2:19 PM EDT [facility] Device ID [id number] 07/10/2025 2:19 PM EDT [facility] Specimen Type POC Arterial 07/10/2025 2:19 PM EDT [facility] Blood Arterial blood specimen / Unknown 07/10/2025 2:17 PM EDT 07/10/2025 2:19 PM EDT us Luanne Crawford MD LAB POINT OF CARE TEST DOCKED DEVICE UNSOLICITED RESULTS Final Result Performing Organization Address City/[facility] Co de Phone Number [facility] [address] [place] [address] * XR Abdomen 1 View (07/10/2025 12:03 [...] of the abdomen. COMPARISON: None. FINDINGS: Limited [id number] abdominal radiograph for the purpose of locating tube position. The tip of the nasogastric tube is within the mid stomach. Procedure Note Bernabe Sen MD - 07/10/2025 CLINICAL INDICATION: feeding tube placement TECHNIQUE: Supine radiograph of the abdomen. COMPARISON: None. FINDINGS: Limited [id number] abdominal radiograph for the purpose of locatingtube [...] POCT glucose meter (07/10/2025 12:00 PM EDT) POCT Glucose 140(H) 74 - 99 mg/dL 07/10/2025 12:02 PM EDT [facility] Comment:Accuracy of [...] Comment 07/10/2025 12:02 PM EDT [facility] Asic Verification Engineer ID Segovia, Symantha F 025 12:02 PM EDT [facility] Device ID [id number] 07/10/2025 12:02 PM EDT [facility] Specimen Type POC Arterial 07/10/2025 12:02 PM EDT [facility] Blood Arterial blood specimen / Unknown 07/10/2025 12:00 PM EDT 07/10/2025 12:02 PM EDT Luanne Crawford MD LAB POINT OF CARE TEST DOCKED DEVICE UNSOLICITED RESULTS Final Result [facility] [address] [place] [address] * (ABNORMAL) POCT glucose meter (07/10/2025 9:50 AM EDT) Pathologist [facility] POCT Glucose 134(H) 74 - 99 mg/dL [...] Comment 07/10/2025 9:52 AM EDT [facility] Asic Verification Engineer ID Zara Segovia 025 9:52 AM EDT [facility] Device ID [id number] 07/10/2025 9:52 AM EDT [facility] Specimen Type POC Arterial 07/10/2025 9:52 AM EDT [facility] Blood Arterial blood specimen / Unknown 07/10/2025 9:50 AM EDT 07/10/2025 9:52 AM EDT Luanne Crawford MD LAB POINT OF CARE TEST DOCKED DEVICE UNSOLICITED RESULTS Final Result Performing Organization Address City/[facility] Co de Phone Number [facility] [address] [place] [address] * ECG Adult (07/10/2025 8:42 AM EDT) EKG DIAGNOSIS CLASS Abnormal MUSE ECG Ventricular Rate 79 BPM MUSE ECG Atrial Rate 79 BPM MUSE ECG MS Interval 188 ms MUSE ECG QRSD Interval 90 ms MUSE ECG QT Interval 354 ms MUSE ECG QTC Interval 405 ms MUSE ECG P Fowler 44 degrees MUSE ECG R Fowler 17 degrees MUSE ECG T Wave Fowler 27 degrees MUSE ECG Diagnosis Sinus rhythm with frequent premature ventricular complexes MUSE ECG Diagnosis Low voltage QRS MUSE ECG Diagnosis Cannot rule out Anterior infarct , age undetermined MUSE ECG Diagnosis MUSE ECG Diagnosis MUSE ECG Diagnosis Confirmed by Octavio Walsh ([id number]) on 07/10/2025 11:49:20 AM MUSE ECG 07/10/2025 8:42 AM EDT 07/10/2025 11:49 AM EDT us Luanne Crawford MD ECG ORDERABLES Final Resu lt MUSE ECG * [facility] CRITICAL CARE, E/M 30-74 MINUTES (07/10/2025 8:15 [...] POCT glucose meter (07/10/2025 8:04 AM EDT) [facility] POCT Glucose 163(H) 74 - 99 mg/dL 07/10/2025 9:22 AM EDT [facility] Comment:Accuracy of a [...] Comment 07/10/2025 9:22 AM EDT [facility] Asic Verification Engineer ID Zara Segovia 025 9:22 AM EDT [facility] Device ID [id number] 07/10/2025 9:22 AM EDT [facility] Specimen Type POC Arterial 07/10/2025 9:22 AM EDT [facility] Blood Arterial blood specimen / Unknown 07/10/2025 8:04 AM EDT 07/10/2025 9:22 AM EDT us Luanne Crawford MD LAB POINT OF CARE TEST DOCKED DEVICE UNSOLICITED RESULTS Final Result Performing Organization Address City/State/[facility] Co de Phone Number [facility] [address] [place] [address] * (ABNORMAL) POCT glucose meter (07/10/2025 6:04 AM EDT) [facility] POCT Glucose 187(H) 74 - 99 mg/dL [...] Comment 07/10/2025 6:05 AM EDT [facility] Asic Verification Engineer ID Cheyanne Briceño 07/10/2025 6:05 AM EDT [facility] Device ID [id number] 07/10/2025 6:05 AM EDT [facility] Specimen Type POC Arterial 07/10/2025 6:05 AM EDT [facility] Blood Arterial blood specimen / Unknown 07/10/2025 6:04 AM EDT 07/10/2025 6:05 AM EDT Luanne Crawford MD LAB POINT OF CARE TEST DOCKED DEVICE UNSOLICITED RESULTS Final Result Performing Organization Address City/[facility]/ZIP Co de Phone Number [facility] [address] [place] [address] * (ABNORMAL) POCT glucose meter (07/10/2025 3:59 AM EDT) POCT Glucose 153(H) 74 - 99 [...] Comment 07/10/2025 4:01 AM EDT [facility] Asic Verification Engineer ID Cheyanne Briceño 07/10/2025 4:01 AM EDT [facility] Device ID [id number] 07/10/2025 4:01 AM EDT [facility] Specimen Type POC Arterial 07/10/2025 4:01 AM EDT [facility] Blood Arterial blood specimen / Unknown 07/10/2025 3:59 AM EDT 07/10/2025 4:01 AM EDT Luanne Crawford MD LAB POINT OF CARE TEST DOCKED DEVICE UNSOLICITED RESULTS Final Result Performing Organization Address City/[facility]/ZIP Co de Phone Number [facility] [address] [place] [address] * (ABNORMAL) POCT glucose meter (07/10/2025 3:01 AM EDT) POCT Glucose 165(H) 74 - 99 mg/dL [...] for testing. Comment 07/10/2025 3:03 AM EDT [facility] Asic Verification Engineer ID Cheyanne Briceño 07/10/2025 3:03 AM EDT [facility] Device ID [id number] 07/10/2025 3:03 AM EDT [facility] Specimen Type POC Arterial 07/10/2025 3:03 AM EDT [facility] Blood Arterial blood specimen / Unknown 07/10/2025 3:01 AM EDT 07/10/2025 3:03 AM EDT us Luanne Crawford MD LAB POINT OF CARE TEST DOCKED DEVICE UNSOLICITED RESULTS Final Result Performing Organization Address City/[facility] Co wv Phone Number [facility] [address] [place] [address] * (ABNORMAL) POCT glucose meter (07/10/2025 2:03 AM EDT) [facility] POCT Glucose 180(H) 74 - 99 mg/dL 07/10/2025 2:04 AM EDT [facility] Comment:Accuracy of a [...] Comment 07/10/2025 2:04 AM EDT [facility] Asic Verification Engineer ID Cheyanne Briceño 07/10/2025 2:04 AM EDT [facility] Device ID [id number] 07/10/2025 2:04 AM EDT [facility] Specimen Type POC Arterial 07/10/2025 2:04 AM EDT [facility] Blood Arterial blood specimen / Unknown 07/10/2025 2:03 AM EDT 07/10/2025 2:04 AM EDT us Luanne Crawford MD LAB POINT OF CARE TEST DOCKED DEVICE UNSOLICITED RESULTS Final Result [facility] [address] [place] [address] * (ABNORMAL) POCT glucose meter (07/10/2025 12:59 AM EDT) [facility] POCT Glucose 158(H) 74 - 99 mg/dL [...] Comment 07/10/2025 1:00 AM EDT [facility] Asic Verification Engineer ID Cheyanne Briceño 07/10/2025 1:00 AM EDT [facility] Device ID [id number] 07/10/2025 1:00 AM EDT [facility] Specimen Type POC Arterial 07/10/2025 1:00 AM EDT [facility] Blood Arterial blood specimen / Unknown 07/10/2025 12:59 AM EDT 07/10/2025 1:00 AM EDT us Luanne Crawford MD LAB POINT OF CARE TEST DOCKED DEVICE UNSOLICITED RESULTS Final Result Performing Organization Address [facility] Co de Phone Number [facility] [address] [place] [address] * Phosphorus (07/10/2025 12:03 AM EDT) [facility] Phosphorus, Plasma 4.2 2.5 - 4.5 mg/dL 07/10/2025 12:40 AM EDT [facility] Blood Arterial blood specimen / Unknown Venipuncture / Unknown 07/10/2025 12:03 AM EDT 07/10/2025 12:10 AM EDT us Luanne Crawford MD LAB BLOOD ORDERABLES Final Result Performing Organization Address City/[facility]/ZIP Co de Phone Number [facility] [address] [place] [address] * Magnesium, Plasma (07/10/2025 12:03 AM EDT) Magnesium, Plasma 2.1 1.9 - 2.4 mg/dL 07/10/2025 12:40 AM EDT [facility] Blood Arterial blood specimen / Unknown Venipuncture / Unknown 07/10/2025 12:03 AM EDT 07/10/2025 12:10 AM EDT us Luanne Crawford MD LAB BLOOD ORDERABLES Final Result [facility] [address] [place] [address] * (ABNORMAL) Basic Metabolic Panel, Plasma (07/10/2025 12:03 AM EDT) Glucose, Plasma 155(H) 74 - 99 mg/dL 07/10/2025 12:40 AM EDT [facility] BUN, Plasma 22(H) 7 - 21 mg/dL 07/10/2025 12:40 AM EDT [facility] Creatinine, Plasma 1.25(H) 0.60 - 1.10 mg/dL 07/10/2025 12:40 AM EDT [facility] BUN/Creatinine Ratio 18 07/10/2025 12:40 AM EDT [facility] Sodium, Plasma 134(L) 136 - 145 mmol/L 07/10/2025 12:40 AM EDT [facility] Potassium, Plasma 3.7 3.6 - 4.9 mmol/L 07/10/2025 12:40 AM EDT [facility] Chloride, Plasma 101 97 - 107 mmol/L 07/10/2025 12:40 AM EDT [facility] CO2, Plasma 25 22 - 29 mmol/L 07/10/2025 12:40 AM EDT [facility] Anion Gap 8 6 - 16 mmol/L 07/10/2025 12:40 AM EDT [facility] Total Calcium, Plasma 9.3 8.9 - 10.2 mg/dL 07/10/2025 12:40 AM EDT [facility] eGFRcr 52.9 mL/min/1.7 3m*2 07/10/2025 12:40 AM EDT [facility] Comment:Reported eGFRcr in m L/min/1.73m2 is based the CKD-EPI 2020 equation that does not use a race coefficient. Blood Arterial blood specimen / Unknown Venipuncture / Unknown 07/10/2025 12:03 AM EDT 07/10/2025 12:10 AM EDT us Luanne Crawford MD LAB BLOOD ORDERABLES Final Result [facility] [address] [place] [address] * (ABNORMAL) CBC W/O Differential (07/10/2025 12:03 AM EDT) WBC Count 17.64(H) 3.70 - 10.30 10*3/uL LAB HEMATOLOGY METHOD 07/10/2025 12:22 AM EDT [facility] RBC Count 3.83(L) 3.90 - 5.20 10*6/uL LAB HEMATOLOGY METHOD 07/10/2025 12:22 AM EDT [facility] HGB 10.6(L) 11.2 - 15.7 g/dL LAB HEMATOLOGY METHOD 07/10/2025 12:22 AM EDT [facility] HCT 33.3(L) 34.0 - 45.0 % LAB HEMATOLOGY METHOD 07/10/2025 12:22 AM EDT [facility] Platelet Count 309 155 - 369 10*3/uL LAB HEMATOLOGY METHOD 07/10/2025 12:22 AM EDT [facility] MCV 87 79 - 98 fL LAB HEMATOLOGY METHOD 07/10/2025 12:22 AM EDT [facility] MCH 27.7 26.0 - 32.0 pg LAB HEMATOLOGY METHOD 07/10/2025 12:22 AM EDT [facility] MCHC 31.8 30.7 - 35.5 g/dL LAB HEMATOLOGY METHOD 07/10/2025 12:22 AM EDT [facility] RDW 17.9(H) 11.5 - 14.5 % LAB HEMATOLOGY METHOD 07/10/2025 12:22 AM EDT [facility] MPV 10.3 8.8 - 12.5 fL LAB HEMATOLOGY METHOD 07/10/2025 12:22 AM EDT [facility] nRBC 0.0 <=0.0 per 100 WBCs LAB HEMATOLOGY METHOD 07/10/2025 12:22 AM EDT [facility] Blood Arterial blood specimen / Unknown Venipuncture / Unknown 07/10/2025 12:03 AM EDT 07/10/2025 12:11 AM EDT us Luanne Crawford MD LAB BLOOD ORDERABLES Final Result [facility] [address] [place] [address] * (ABNORMAL) POCT glucose meter (07/10/2025 12:02 AM EDT) Pathologist [facility] POCT Glucose 142(H) 74 - 99 mg/dL 07/10/2025 12:04 AM EDT [facility] Comment:Accuracy of a [...] Comment 07/10/2025 12:04 AM EDT [facility] Asic Verification Engineer ID Cheyanne Briceño 07/10/2025 12:04 AM EDT [facility] Device ID [id number] 07/10/2025 12:04 AM EDT [facility] Specimen Type POC Arterial 07/10/2025 12:04 AM EDT [facility] Blood Arterial blood specimen / Unknown 07/10/2025 12:02 AM EDT 07/10/2025 12:04 AM EDT us Luanne Crawford MD LAB POINT OF CARE TEST DOCKED DEVICE UNSOLICITED RESULTS Final Result Performing Organization Address City/[facility] Co de Phone Number [facility] [address] [place] [address] * (ABNORMAL) POCT glucose meter (07/09/2025 10:01 [...] 07/09/2025 10:04 PM EDT [facility] Asic Verification Engineer ID Cheyanne Briceño 07/09/2025 10:04 PM EDT [facility] Device ID [id number] 07/09/2025 10:04 PM EDT [facility] Specimen Type POC Arterial 07/09/2025 10:04 PM EDT [facility] Blood Arterial blood specimen / Unknown 07/09/2025 10:01 PM EDT 07/09/2025 10:04 PM EDT Luanne Crawford MD LAB POINT OF CARE TEST DOCKED DEVICE UNSOLICITED RESULTS Final Result [facility] [address] [place] [address] * (ABNORMAL) POCT glucose meter (07/09/2025 8:09 PM EDT) [facility] POCT Glucose 188(H) 74 - 99 mg/dL [...] 07/09/2025 8:11 PM EDT [facility] Asic Verification Engineer ID Cheyanne Briceño 07/09/2025 8:11 PM EDT [facility] Device ID [id number] 07/09/2025 8:11 PM EDT [facility] Specimen Type POC Capillary 07/09/2025 8:11 PM EDT [facility] Blood Capillary blood specimen / Unknown 07/09/2025 8:09 PM EDT 07/09/2025 8:11 PM EDT us Luanne Crawford MD LAB POINT OF CARE TEST DOCKED DEVICE UNSOLICITED RESULTS Final Result Performing Organization Address [facility] de Phone Number [facility] [address] [place] [address] * (ABNORMAL) POCT glucose meter (07/09/2025 6:22 PM EDT) Pathologist [facility] POCT Glucose 151(H) 74 - 99 mg/dL [...] for testing. Comment 07/09/2025 6:24 PM EDT [facility] Asic Verification Engineer ID Jeana Bear 07/09/2025 6:24 PM EDT [facility] Device ID [id number] 07/09/2025 6:24 PM EDT [facility] Specimen Type POC Capillary 07/09/2025 6:24 PM EDT [facility] Blood Capillary blood specimen / Unknown 07/09/2025 6:22 PM EDT 07/09/2025 6:24 PM EDT us Luanne Crawford MD LAB POINT OF CARE TEST DOCKED DEVICE UNSOLICITED RESULTS Final Result Performing Organization Address City/[facility] de Phone Number [facility] [address] [place] [address] * (ABNORMAL) POCT glucose meter (07/09/2025 4:06 PM EDT) Pathologist [facility] POCT Glucose 144(H) 74 - 99 mg/dL [...] for testing. Comment 07/09/2025 4:07 PM EDT [facility] Asic Verification Engineer ID Jeana Bear 07/09/2025 4:07 PM EDT [facility] Device ID [id number] 07/09/2025 4:07 PM EDT [facility] Specimen Type POC Capillary 07/09/2025 4:07 PM EDT [facility] Blood Capillary blood specimen / Unknown 07/09/2025 4:06 PM EDT 07/09/2025 4:07 PM EDT us Luanne Crawford MD LAB POINT OF CARE TEST DOCKED DEVICE UNSOLICITED RESULTS Final Result [facility] [address] [place] [address] * (ABNORMAL) Blood gas, arterial (07/09/2025 3:16 PM EDT) pH, Arterial 7.31(L) 7.35 - 7.45 LAB HEMATOLOGY METHOD 07/09/2025 3:40 PM EDT [facility] pCO2, Arterial 53(H) 35 - 48 mmHg LAB HEMATOLOGY METHOD 07/09/2025 3:40 PM EDT [facility] pO2, Arterial 153(H) 83 - 108 mmHg LAB HEMATOLOGY METHOD 07/09/2025 3:40 PM EDT [facility] SO2, Measured, Arterial 100(H) 94 - 98 % LAB HEMATOLOGY METHOD 07/09/2025 3:40 PM EDT [facility] Base Excess, Arterial -0.4 -2.0 - 3.0 mmol/L LAB HEMATOLOGY METHOD 07/09/2025 3:40 PM EDT [facility] Bicarbonate, Calculated, Arterial 26 22 - 26 mmol/L LAB HEMATOLOGY METHOD 07/09/2025 3:40 PM EDT [facility] Hematocrit, Whole Blood 30.6(L) 34.0 - 45.0 % LAB HEMATOLOGY METHOD 07/09/2025 3:40 PM EDT [facility] Sodium, Whole Blood 141 136 - 145 mmol/L LAB HEMATOLOGY METHOD 07/09/2025 3:40 PM EDT [facility] Potassium, Whole Blood 3.4(L) 3.6 - 4.9 mmol/L LAB HEMATOLOGY METHOD 07/09/2025 3:40 PM EDT [facility] Chloride, Whole Blood 107 97 - 107 mmol/L LAB HEMATOLOGY METHOD 07/09/2025 3:40 PM EDT [facility] Glucose, Whole Blood 141(H) 74 - 99 mg/dL LAB HEMATOLOGY METHOD 07/09/2025 3:40 PM EDT [facility] Ionized Calcium, Whole Blood 4.9 4.6 - 5.1 mg/dL LAB HEMATOLOGY METHOD 07/09/2025 3:40 PM EDT [facility] Lactate, Arterial, Whole Blood 0.9 0.5 - 1.6 mmol/L LAB HEMATOLOGY METHOD 07/09/2025 3:40 PM EDT [facility] Blood Arterial blood specimen / Unknown Arterial Line / Unknown 07/09/2025 3:16 PM EDT 07/09/2025 3:38 PM EDT Luanne Crawford MD LAB BLOOD ORDERABLES Final Result [facility] [address] [place] [address] * (ABNORMAL) POCT glucose meter (07/09/2025 3:01 PM EDT) Pathologist [facility] POCT Glucose 135(H) 74 - 99 mg/dL [...] Comment 07/09/2025 3:03 PM EDT [facility] Asic Verification Engineer ID Maranda Bearly 07/09/2025 3:03 PM EDT [facility] Device ID [id number] 07/09/2025 3:03 PM EDT [facility] Specimen Type POC Capillary 07/09/2025 3:03 PM EDT [facility] Blood Capillary blood specimen / Unknown 07/09/2025 3:01 PM EDT 07/09/2025 3:03 PM EDT Luanne Crawford MD LAB POINT OF CARE TEST DOCKED DEVICE UNSOLICITED RESULTS Final Result Performing Organization Address City/[facility] Co de Phone Number [facility] [address] [place] [address] * (ABNORMAL) POCT glucose meter (07/09/2025 1:57 PM EDT) [facility] POCT Glucose 115(H) 74 - 99 mg/dL 07/09/2025 1:59 PM EDT [facility] Comment:Accuracy of a [...] Comment 07/09/2025 1:59 PM EDT [facility] Asic Verification Engineer ID Jeana Bear 07/09/2025 1:59 PM EDT [facility] Device ID [id number] 07/09/2025 1:59 PM EDT [facility] Specimen Type POC Capillary 07/09/2025 1:59 PM EDT [facility] Blood Capillary blood specimen / Unknown 07/09/2025 1:57 PM EDT 07/09/2025 1:59 PM EDT Luanne Crawford MD LAB POINT OF CARE TEST DOCKED DEVICE UNSOLICITED RESULTS Final Result Performing Organization Address City/[facility]/ZIP Co de Phone Number [facility] [address] [place] [address] * Phosphorus (07/09/2025 1:21 PM EDT) [facility] Phosphorus, Plasma 4.2 2.5 - 4.5 mg/dL 07/09/2025 2:49 PM EDT [facility] Blood Arterial blood specimen / Unknown Arterial Line / Unknown 07/09/2025 1:21 PM EDT 07/09/2025 2:01 PM EDT us Luanne Crawford MD LAB BLOOD ORDERABLES Final Result [facility] [address] [place] [address] * Magnesium (07/09/2025 1:21 PM EDT) Magnesium, Plasma 2.3 1.9 - 2.4 mg/dL 07/09/2025 2:49 PM EDT [facility] Blood Arterial blood specimen / Unknown Arterial Line / Unknown 07/09/2025 1:21 PM EDT 07/09/2025 2:01 PM EDT us Luanne Crawford MD LAB BLOOD ORDERABLES Final Result Performing Organization Address City/[facility]/ZIP Co de Phone Number [facility] [address] [place] [address] * (ABNORMAL) Basic metabolic panel (07/09/2025 1:21 PM EDT) Glucose, Plasma 100(H) 74 - 99 mg/dL 07/09/2025 2:49 PM EDT [facility] BUN, Plasma 26(H) 7 - 21 mg/dL 07/09/2025 2:49 PM EDT [facility] Creatinine, Plasma 1.42(H) 0.60 - 1.10 mg/dL 07/09/2025 2:49 PM EDT [facility] BUN/Creatinine Ratio 18 07/09/2025 2:49 PM EDT [facility] Sodium, Plasma 140 136 - 145 mmol/L 07/09/2025 2:49 PM EDT [facility] Potassium, Plasma 3.7 3.6 - 4.9 mmol/L 07/09/2025 2:49 PM EDT [facility] Chloride, Plasma 104 97 - 107 mmol/L 07/09/2025 2:49 PM EDT [facility] CO2, Plasma 24 22 - 29 mmol/L 07/09/2025 2:49 PM EDT [facility] Anion Gap 12 6 - 16 mmol/L 07/09/2025 2:49 PM EDT [facility] Total Calcium, Plasma 9.1 8.9 - 10.2 mg/dL 07/09/2025 2:49 PM EDT [facility] eGFRcr 45.4 mL/min/1.7 3m*2 07/09/2025 2:49 PM EDT [facility] Comment:Reported eGFRcr in m L/min/1.73m2 is based the CKD-EPI 2020 equation that does not use a race coefficient. Blood Arterial blood specimen / Unknown Arterial Line / Unknown 07/09/2025 1:21 PM EDT 07/09/2025 2:01 PM EDT us Luanne Crawford MD LAB BLOOD ORDERABLES Final Result Performing Organization Address City/[facility] Co de Phone Number [facility] [address] [place] [address] * (ABNORMAL) POCT glucose meter (07/09/2025 1:20 [...] for testing. Comment 07/09/2025 1:22 PM EDT [facility] Asic Verification Engineer ID Jeana Bear 07/09/2025 1:22 PM EDT [facility] Device ID [id number] 07/09/2025 1:22 PM EDT [facility] Specimen Type POC Arterial 07/09/2025 1:22 PM EDT [facility] Blood Arterial blood specimen / Unknown 07/09/2025 1:20 PM EDT 07/09/2025 1:22 PM EDT us Luanne Crawford MD LAB POINT OF CARE TEST DOCKED DEVICE UNSOLICITED RESULTS Final Result Performing Organization Address City/[facility]/ZIP Co de Phone Number [facility] [address] [place] [address] * (ABNORMAL) POCT glucose meter (07/09/2025 12:44 PM EDT) [facility] POCT Glucose 110(H) 74 - 99 mg/dL [...] for testing. Comment 07/09/2025 12:45 PM EDT [facility] Asic Verification Engineer ID Sonia Bearberly 07/09/2025 12:45 PM EDT [facility] Device ID [id number] 07/09/2025 12:45 PM EDT [facility] Specimen Type POC Capillary 07/09/2025 12:45 PM EDT [facility] Blood Capillary blood specimen / Unknown 07/09/2025 12:44 PM EDT 07/09/2025 12:45 PM EDT Luanne Crawford MD LAB POINT OF CARE TEST DOCKED DEVICE UNSOLICITED RESULTS Final Result [facility] [address] [place] [address] * (ABNORMAL) POCT glucose meter (07/09/2025 12:19 PM EDT) [facility] POCT Glucose 62(L) 74 - 99 mg/dL [...] 07/09/2025 12:21 PM EDT [facility] Asic Verification Engineer ID Marianela Jeana 07/09/2025 12:21 PM EDT [facility] Device ID [id number] 07/09/2025 12:21 PM EDT [facility] Specimen Type POC Capillary 07/09/2025 12:21 PM EDT [facility] Blood Capillary blood specimen / Unknown 07/09/2025 12:19 PM EDT 07/09/2025 12:21 PM EDT us Luanne Crawford MD LAB POINT OF CARE TEST DOCKED DEVICE UNSOLICITED RESULTS Final Result Performing Organization Address City/[facility]/ZIP Co de Phone Number [facility] [address] [place] [address] * Blood Culture (Aerobic/Anaerobet Set) (07/09/2025 10:35 AM EDT) Culture No growth at day 5 [place]AR[place] 07/14/2025 12:02 PM EDT [facility] Blood Structure of antecubital vein / Unknown Venipuncture / Unknown 07/09/2025 10:35 AM EDT 07/09/2025 10:50 AM EDT us My Charles MD LAB MICROBIOLOGY - GENE RAL ORDERABLES Final Result Performing Organization Address [facility] [place] [address] * Blood Culture (Aerobic/Anaerobet Set) (07/09/2025 10:35 AM EDT) Culture No growth at day 5 K[place] 07/14/2025 12:02 PM EDT [facility] Blood Structure of antecubital vein / Unknown Venipuncture / Unknown 07/09/2025 10:35 AM EDT 07/09/2025 10:50 AM EDT us My Charles MD LAB MICROBIOLOGY - GENE RAL ORDERABLES Final Result Performing Organization Address City/[facility] Co de Phone Number [facility] [address] [place] [address] * (ABNORMAL) POCT glucose meter (07/09/2025 10:04 AM EDT) POCT Glucose 114(H) 74 - 99 mg/dL 07/09/2025 10:05 AM EDT [facility] Comment:Accuracy of a [...] Comment 07/09/2025 10:05 AM EDT [facility] Asic Verification Engineer ID Jeana Bear 07/09/2025 10:05 AM EDT [facility] Device ID [id number] 07/09/2025 10:05 AM EDT [facility] Specimen Type POC Capillary 07/09/2025 10:05 AM EDT [facility] Blood Capillary blood specimen / Unknown 07/09/2025 10:04 AM EDT 07/09/2025 10:05 AM EDT Luanne Crawford MD LAB POINT OF CARE TEST DOCKED DEVICE UNSOLICITED RESULTS Final Result [facility] [address] [place] [address] * Multi Drug Resistance Test (07/09/2025 9:46 AM EDT) Culture No growth at day 1 07/10/2025 11:58 AM EDT [facility] Swab (Nares and Leann Rectal) Non-blood Collection / Unknown 07/09/2025 9:46 AM EDT 07/09/2025 10:09 AM EDT Narrative [facility] - 07/10/2025 11:58 AM EDT This test was developed and its performance characteristics determined by the [facility]. Although the media is FDA-approved, it is not FDA-approved for all specimen types submitted. The FDA has determined that such clearance or approval is not necessary. This test is used for surveillance purposes. It should not be regarded as investigational or for research. The [facility] is certified under the Clinical Laboratory Improvement Amendments of 1988 (CLIA-88) as qualified to perform high complexity clinical laboratory testing. us Luanne Crawford MD LAB MICROBIOLOGY - GENERAL ORDERABLES Final Result [facility] [address] [place] [address] * (ABNORMAL) Blood gas, arterial (07/09/2025 8:47 AM EDT) pH, Arterial 7.30(L) 7.35 - 7.45 LAB HEMATOLOGY METHOD 07/09/2025 8:55 AM EDT [facility] pCO2, Arterial 53(H) 35 - 48 mmHg LAB HEMATOLOGY METHOD 07/09/2025 8:55 AM EDT [facility] pO2, Arterial 173(H) 83 - 108 mmHg LAB HEMATOLOGY METHOD 07/09/2025 8:55 AM EDT [facility] SO2, Measured, Arterial 98 94 - 98 % LAB HEMATOLOGY METHOD 07/09/2025 8:55 AM EDT [facility] Base Excess, Arterial -0.8 -2.0 - 3.0 mmol/L LAB HEMATOLOGY METHOD 07/09/2025 8:55 AM EDT [facility] Bicarbonate, Calculated, Arterial 26 22 - 26 mmol/L LAB HEMATOLOGY METHOD 07/09/2025 8:55 AM EDT [facility] Hematocrit, Whole Blood 27.3(L) 34.0 - 45.0 % LAB HEMATOLOGY METHOD 07/09/2025 8:55 AM EDT [facility] Sodium, Whole Blood 140 136 - 145 mmol/L LAB HEMATOLOGY METHOD 07/09/2025 8:55 AM EDT [facility] Potassium, Whole Blood 2.9(L) 3.6 - 4.9 mmol/L LAB HEMATOLOGY METHOD 07/09/2025 8:55 AM EDT [facility] Chloride, Whole Blood 106 97 - 107 mmol/L LAB HEMATOLOGY METHOD 07/09/2025 8:55 AM EDT [facility] Glucose, Whole Blood 155(H) 74 - 99 mg/dL LAB HEMATOLOGY METHOD 07/09/2025 8:55 AM EDT [facility] Ionized Calcium, Whole Blood 5.0 4.6 - 5.1 mg/dL LAB HEMATOLOGY METHOD 07/09/2025 8:55 AM EDT [facility] Lactate, Arterial, Whole Blood 1.4 0.5 - 1.6 mmol/L LAB HEMATOLOGY METHOD 07/09/2025 8:55 AM EDT [facility] Blood Arterial blood specimen / Unknown Arterial Line / Unknown 07/09/2025 8:47 AM EDT 07/09/2025 8:54 AM EDT us Dorcas Hennessy MD LAB BLOOD ORDERABLES Final Resul t [facility] [address] [place] [address] * (ABNORMAL) POCT glucose meter (07/09/2025 8:01 [...] Comment 07/09/2025 8:03 AM EDT [facility] Asic Verification Engineer ID Jeana Bear 07/09/2025 8:03 AM EDT [facility] Device ID [id number] 07/09/2025 8:03 AM EDT [facility] Specimen Type POC Capillary 07/09/2025 8:03 AM EDT [facility] Blood Capillary blood specimen / Unknown 07/09/2025 8:01 AM EDT 07/09/2025 8:03 AM EDT us Luanne Crawford MD LAB POINT OF CARE TEST DOCKED DEVICE UNSOLICITED RESULTS Final Result [facility] [address] [place] [address] * [facility] CRITICAL CARE, E/M 30-74 MINUTES (07/09/2025 7:15 [...] - 99 mg/dL 07/09/2025 6:20 AM EDT [facility] Comment:Accuracy of a glucos e result [...] for testing. Comment 07/09/2025 6:20 AM EDT [facility] Asic Verification Engineer ID Cheyanne Briceño 07/09/2025 6:20 AM EDT [facility] Device ID [id number] 07/09/2025 6:20 AM EDT [facility] Specimen Type POC Arterial 07/09/2025 6:20 AM EDT [facility] Blood Arterial blood specimen / Unknown 07/09/2025 6:05 AM EDT 07/09/2025 6:20 AM EDT us Luanne Crawford MD LAB POINT OF CARE TEST DOCKED DEVICE UNSOLICITED RESULTS Final Result [facility] [address] [place] [address] * (ABNORMAL) Hemoglobin A1c (07/09/2025 4:57 AM EDT) Hemoglobin A1c 7.5(H) <5.7 % 07/09/2025 12:09 PM EDT [facility] Blood Arterial blood specimen / Unknown Venipuncture / Unknown 07/09/2025 4:57 AM EDT 07/09/2025 5:07 AM EDT Narrative [facility] - 07/09/2025 12:09 PM EDT HA1C Interpretive Data: Diagnosis of Diabetes: Diabetic > or = 6.5% Pre-diabetic 5.7 to 6.4% Non-diabetic < or = 5.6% Glycemic Targets for Type I and Type II Diabetics: Non- Adults <7.0% Adults <6.0% Children and Adolescents <7.5% Source: [place] [employer]. Standards of medical care in diabetes,2017. Diabetes Care.2017:40 (suppl 1):S1-S135. us Dorcas Hennessy MD LAB BLOOD ORDERABLES Final Resul t Performing Organization Address City/[facility]/[place] [address] * Phosphorus (07/09/2025 4:57 AM EDT) Phosphorus, Plasma 4.1 2.5 - 4.5 mg/dL 07/09/2025 5:35 AM EDT [facility] Blood Arterial blood specimen / Unknown Venipuncture / Unknown 07/09/2025 4:57 AM EDT 07/09/2025 5:06 AM EDT us Luanne Crawford MD LAB BLOOD [place]AB[place] [address] * Magnesium, Plasma (07/09/2025 4:57 AM EDT) Magnesium, Plasma 2.2 1.9 - 2.4 mg/dL 07/09/2025 5:35 AM EDT [facility] Blood Arterial blood specimen / Unknown Venipuncture / Unknown 07/09/2025 4:57 AM EDT 07/09/2025 5:06 AM EDT us Luanne Crawford MD LAB BLOOD ORDERABLES Final Result [facility] [address] [place] [address] * (ABNORMAL) Basic Metabolic Panel, Plasma (07/09/2025 4:57 AM EDT) Glucose, Plasma 235(H) 74 - 99 mg/dL 07/09/2025 5:35 AM EDT [facility] BUN, Plasma 30(H) 7 - 21 mg/dL 07/09/2025 5:35 AM EDT [facility] Creatinine, Plasma 1.58(H) 0.60 - 1.10 mg/dL 07/09/2025 5:35 AM EDT [facility] BUN/Creatinine Ratio 19 07/09/2025 5:35 AM EDT [facility] Sodium, Plasma 136 136 - 145 mmol/L 07/09/2025 5:35 AM EDT [facility] Potassium, Plasma 3.5(L) 3.6 - 4.9 mmol/L 07/09/2025 5:35 AM EDT [facility] Chloride, Plasma 101 97 - 107 mmol/L 07/09/2025 5:35 AM EDT [facility] CO2, Plasma 23 22 - 29 mmol/L 07/09/2025 5:35 AM EDT [facility] Anion Gap 12 6 - 16 mmol/L 07/09/2025 5:35 AM EDT [facility] Total Calcium, Plasma 9.2 8.9 - 10.2 mg/dL 07/09/2025 5:35 AM EDT [facility] eGFRcr 40.0 mL/min/1.7 3m*2 07/09/2025 5:35 AM EDT [facility] Comment:Reported eGFRcr in m L/min/1.73m2 is based the CKD-EPI 2020 equation that does not use a race coefficient. Blood Arterial blood specimen / Unknown Venipuncture / Unknown 07/09/2025 4:57 AM EDT 07/09/2025 5:06 AM EDT us Luanne Crawford MD LAB BLOOD ORDERABLES Final Result [facility] [address] [place] [address] * (ABNORMAL) CBC W/O Differential (07/09/2025 4:57 AM EDT) WBC Count 32.25(H) 3.70 - 10.30 10*3/uL LAB HEMATOLOGY METHOD 07/09/2025 5:15 AM EDT [facility] RBC Count 3.89(L) 3.90 - 5.20 10*6/uL LAB HEMATOLOGY METHOD 07/09/2025 5:15 AM EDT [facility] HGB 11.0(L) 11.2 - 15.7 g/dL LAB HEMATOLOGY METHOD 07/09/2025 5:15 AM EDT [facility] HCT 33.4(L) 34.0 - 45.0 % LAB HEMATOLOGY METHOD 07/09/2025 5:15 AM EDT [facility] Platelet Count 358 155 - 369 10*3/uL LAB HEMATOLOGY METHOD 07/09/2025 5:15 AM EDT [facility] MCV 86 79 - 98 fL LAB HEMATOLOGY METHOD 07/09/2025 5:15 AM EDT [facility] MCH 28.3 26.0 - 32.0 pg LAB HEMATOLOGY METHOD 07/09/2025 5:15 AM EDT [facility] MCHC 32.9 30.7 - 35.5 g/dL LAB HEMATOLOGY METHOD 07/09/2025 5:15 AM EDT [facility] RDW 17.4(H) 11.5 - 14.5 % LAB HEMATOLOGY METHOD 07/09/2025 5:15 AM EDT [facility] MPV 10.0 8.8 - 12.5 fL LAB HEMATOLOGY METHOD 07/09/2025 5:15 AM EDT [facility] nRBC 0.0 <=0.0 per 100 WBCs LAB HEMATOLOGY METHOD 07/09/2025 5:15 AM EDT [facility] Blood Arterial blood specimen / Unknown Venipuncture / Unknown 07/09/2025 4:57 AM EDT 07/09/2025 5:07 AM EDT us Luanne Crawford MD LAB BLOOD ORDERABLES Final Result Performing Organization Address City/[facility]/ZIP Co de Phone Number [facility] [address] [place] [address] * (ABNORMAL) POCT glucose meter (07/09/2025 4:03 AM EDT) POCT Glucose 232(H) 74 - 99 mg/dL 07/09/2025 4:05 AM EDT [facility] Comment:Accuracy of a [...] Comment 07/09/2025 4:05 AM EDT [facility] Asic Verification Engineer ID Cheyanne Briceño 07/09/2025 4:05 AM EDT [facility] Device ID [id number] 07/09/2025 4:05 AM EDT [facility] Specimen Type POC Arterial 07/09/2025 4:05 AM EDT [facility] Blood Arterial blood specimen / Unknown 07/09/2025 4:03 AM EDT 07/09/2025 4:05 AM EDT us Luanne Crawford MD LAB POINT OF CARE TEST DOCKED DEVICE UNSOLICITED RESULTS Final Result Performing Organization Address City/[facility]/ZIP Co de Phone Number [facility] [address] [place] [address] * XR Chest 1 View (07/09/2025 3:42 [...] - 99 mg/dL 07/09/2025 2:17 AM EDT [facility] Comment:Accuracy of a glucos e result [...] for testing. Comment 07/09/2025 2:17 AM EDT [facility] Asic Verification Engineer ID Cheyanne Briceño 07/09/2025 2:17 AM EDT [facility] Device ID [id number] 07/09/2025 2:17 AM EDT [facility] Specimen Type POC Arterial 07/09/2025 2:17 AM EDT [facility] Blood Arterial blood specimen / Unknown 07/09/2025 2:15 AM EDT 07/09/2025 2:17 AM EDT us Luanne Crawford MD LAB POINT OF CARE TEST DOCKED DEVICE UNSOLICITED RESULTS Final Result [facility] [address] [place] [address] * (ABNORMAL) Blood gas panel, arterial (07/09/2025 2:11 AM EDT) pH, Arterial 7.25(LL) 7.35 - 7.45 LAB HEMATOLOGY METHOD 07/09/2025 2:23 AM EDT [facility] pCO2, Arterial 56(H) 35 - 48 mmHg LAB HEMATOLOGY METHOD 07/09/2025 2:23 AM EDT [facility] pO2, Arterial 67(L) 83 - 108 mmHg LAB HEMATOLOGY METHOD 07/09/2025 2:23 AM EDT [facility] SO2, Measured, Arterial 91(L) 94 - 98 % LAB HEMATOLOGY METHOD 07/09/2025 2:23 AM EDT [facility] Base Excess, Arterial -2.7(L) -2.0 - 3.0 mmol/L LAB HEMATOLOGY METHOD 07/09/2025 2:23 AM EDT [facility] Bicarbonate, Calculated, Arterial 25 22 - 26 mmol/L LAB HEMATOLOGY METHOD 07/09/2025 2:23 AM EDT [facility] Hematocrit, Whole Blood 31.5(L) 34.0 - 45.0 % LAB HEMATOLOGY METHOD 07/09/2025 2:23 AM EDT [facility] Sodium, Whole Blood 135(L) 136 - 145 mmol/L LAB HEMATOLOGY METHOD 07/09/2025 2:23 AM EDT [facility] Potassium, Whole Blood 3.5(L) 3.6 - 4.9 mmol/L LAB HEMATOLOGY METHOD 07/09/2025 2:23 AM EDT [facility] Chloride, Whole Blood 103 97 - 107 mmol/L LAB HEMATOLOGY METHOD 07/09/2025 2:23 AM EDT [facility] Glucose, Whole Blood 279(H) 74 - 99 mg/dL LAB HEMATOLOGY METHOD 07/09/2025 2:23 AM EDT [facility] Ionized Calcium, Whole Blood 4.9 4.6 - 5.1 mg/dL LAB HEMATOLOGY METHOD 07/09/2025 2:23 AM EDT [facility] Lactate, Arterial, Whole Blood 1.2 0.5 - 1.6 mmol/L LAB HEMATOLOGY METHOD 07/09/2025 2:23 AM EDT [facility] Blood Arterial blood specimen / Unknown Arterial Puncture / Unknown 07/09/2025 2:11 AM EDT 07/09/2025 2:21 AM EDT us Luanne Crawford MD LAB BLOOD ORDERABLES Final Result [facility] [address] [place] [address] * (ABNORMAL) POCT glucose meter (07/09/2025 1:22 AM EDT) [facility] POCT Glucose 271(H) 74 - 99 mg/dL [...] Comment 07/09/2025 1:24 AM EDT [facility] Asic Verification Engineer ID Cheyanne Briceño 07/09/2025 1:24 AM EDT [facility] Device ID [id number] 07/09/2025 1:24 AM EDT [facility] Specimen Type POC Arterial 07/09/2025 1:24 AM EDT [facility] Blood Arterial blood specimen / Unknown 07/09/2025 1:22 AM EDT 07/09/2025 1:24 AM EDT Luanne Crawford MD LAB POINT OF CARE TEST DOCKED DEVICE UNSOLICITED RESULTS Final Result Performing Organization Address City/[facility]/ZIP Co de Phone Number [facility] [address] [place] [address] * (ABNORMAL) POCT glucose meter (07/09/2025 12:06 AM EDT) [facility] POCT Glucose 311(H) 74 - 99 mg/dL 07/09/2025 12:08 AM EDT [facility] Comment:Accuracy of a [...] Comment 07/09/2025 12:08 AM EDT [facility] Asic Verification Engineer ID Cheyanne Briceño 07/09/2025 12:08 AM EDT [facility] Device ID [id number] 07/09/2025 12:08 AM EDT [facility] Specimen Type POC Arterial 07/09/2025 12:08 AM EDT [facility] Blood Arterial blood specimen / Unknown 07/09/2025 12:06 AM EDT 07/09/2025 12:08 AM EDT Luanne Crawford MD LAB POINT OF CARE TEST DOCKED DEVICE UNSOLICITED RESULTS Final Result Performing Organization Address City/[facility]/ZIP Co de Phone Number [facility] [address] [place] [address] * APTT (07/08/2025 11:53 PM EDT) [facility] aPTT 25 25 - 35 sec LAB COAGULATION METHOD 07/09/2025 12:32 AM EDT [facility] Blood Venous blood specimen / Unknown Venipuncture / Unknown 07/08/2025 11:53 PM EDT 07/08/2025 11:59 PM EDT Luanne Crawford MD LAB BLOOD ORDERABLES Final Result [facility] [address] [place] [address] * (ABNORMAL) Protime-INR (07/08/2025 11:53 PM EDT) Prothrombin Time 15.2(H) 12.0 - 14.3 sec LAB COAGULATION METHOD 07/09/2025 12:32 AM EDT [facility] INR 1.2(H) 0.9 - 1.1 LAB COAGULATION METHOD 07/09/2025 12:32 AM EDT [facility] Blood Venous blood specimen / Unknown Venipuncture / Unknown 07/08/2025 11:53 PM EDT 07/08/2025 11:59 PM EDT Narrative [facility] - 07/09/2025 12:32 AM EDT OPTIMAL INR RANGES FOR PATIENT ON ORAL ANTICOAGULANT THERAPY Prevention of venous thromboembolism INR 2.0 to 3.0 In patients with heart disease: Atrial fibrillation INR 2.0 to 3.0 Valvular heart disease INR 2.0 to 3.0 Tissue heart valves INR 2.0 to 3.0 Mechanical prosthetic valves INR 2.5 to 3.5 Prevention of recurrent ND INR 2.5 to 3.5 us Luanne Crawford MD LAB BLOOD ORDERABLES Final Result Performing Organization Address City/[facility] Co de Phone Number [facility] [address] [place] [address] * Phosphorus, Plasma (07/08/2025 11:52 PM EDT) Phosphorus, Plasma 3.6 2.5 - 4.5 mg/dL 07/09/2025 12:27 AM EDT [facility] Blood Venous blood specimen / Unknown Venipuncture / Unknown 07/08/2025 11:52 PM EDT 07/08/2025 11:59 PM EDT Luanne Crawford MD LAB BLOOD ORDERABLES Final Result [facility] [address] [place] [address] * (ABNORMAL) Magnesium, Plasma (07/08/2025 11:52 PM EDT) Magnesium, Plasma 1.8(L) 1.9 - 2.4 mg/dL 07/09/2025 12:27 AM EDT [facility] Blood Venous blood specimen / Unknown Venipuncture / Unknown 07/08/2025 11:52 PM EDT 07/08/2025 11:59 PM EDT us Luanne Crawford MD LAB BLOOD ORDERABLES Final Result [facility] [address] [place] [address] * (ABNORMAL) Basic Metabolic Panel, Plasma (07/08/2025 11:52 PM EDT) Glucose, Plasma 314(H) 74 - 99 mg/dL 07/09/2025 12:27 AM EDT [facility] BUN, Plasma 32(H) 7 - 21 mg/dL 07/09/2025 12:27 AM EDT [facility] Creatinine, Plasma 1.80(H) 0.60 - 1.10 mg/dL 07/09/2025 12:27 AM EDT [facility] BUN/Creatinine Ratio 18 07/09/2025 12:27 AM EDT [facility] Sodium, Plasma 136 136 - 145 mmol/L 07/09/2025 12:27 AM EDT [facility] Potassium, Plasma 3.6 3.6 - 4.9 mmol/L 07/09/2025 12:27 AM EDT [facility] Chloride, Plasma 100 97 - 107 mmol/L 07/09/2025 12:27 AM EDT [facility] CO2, Plasma 23 22 - 29 mmol/L 07/09/2025 12:27 AM EDT [facility] Anion Gap 13 6 - 16 mmol/L 07/09/2025 12:27 AM EDT [facility] Total Calcium, Plasma 8.9 8.9 - 10.2 mg/dL 07/09/2025 12:27 AM EDT [facility] eGFRcr 34.2 mL/min/1.7 3m*2 07/09/2025 12:27 AM EDT [facility] Comment:Reported eGFRcr in m L/min/1.73m2 is based the CKD-EPI 2020 equation that does not use a race coefficient. Blood Venous blood specimen / Unknown Venipuncture / Unknown 07/08/2025 11:52 PM EDT 07/08/2025 11:59 PM EDT us Luanne Crawford MD LAB BLOOD ORDERABLES Final Result [facility] [address] [place] [address] * (ABNORMAL) CBC W/O Differential (07/08/2025 11:52 PM EDT) WBC Count 22.50(H) 3.70 - 10.30 10*3/uL LAB HEMATOLOGY METHOD 07/09/2025 12:16 AM EDT [facility] RBC Count 3.60(L) 3.90 - 5.20 10*6/uL LAB HEMATOLOGY METHOD 07/09/2025 12:16 AM EDT [facility] HGB 10.0(L) 11.2 - 15.7 g/dL LAB HEMATOLOGY METHOD 07/09/2025 12:16 AM EDT [facility] HCT 30.8(L) 34.0 - 45.0 % LAB HEMATOLOGY METHOD 07/09/2025 12:16 AM EDT [facility] Platelet Count 273 155 - 369 10*3/uL LAB HEMATOLOGY METHOD 07/09/2025 12:16 AM EDT [facility] MCV 86 79 - 98 fL LAB HEMATOLOGY METHOD 07/09/2025 12:16 AM EDT [facility] MCH 27.8 26.0 - 32.0 pg LAB HEMATOLOGY METHOD 07/09/2025 12:16 AM EDT [facility] MCHC 32.5 30.7 - 35.5 g/dL LAB HEMATOLOGY METHOD 07/09/2025 12:16 AM EDT [facility] RDW 16.9(H) 11.5 - 14.5 % LAB HEMATOLOGY METHOD 07/09/2025 12:16 AM EDT [facility] MPV 10.3 8.8 - 12.5 fL LAB HEMATOLOGY METHOD 07/09/2025 12:16 AM EDT [facility] nRBC 0.0 <=0.0 per 100 WBCs LAB HEMATOLOGY METHOD 07/09/2025 12:16 AM EDT [facility] Blood Venous blood specimen / Unknown Venipuncture / Unknown 07/08/2025 11:52 PM EDT 07/08/2025 11:59 PM EDT Luanne Crawford MD LAB BLOOD ORDERABLES Final Result Performing Organization Address City/[facility]/ZIP Co de Phone Number [facility] [address] [place] [phone] * Richie auris Surveillance by PCR (07/08/2025 11:50 PM EDT) Richie auris PCR Result Not Detected Not Detected 07/09/2025 11:26 AM EDT [facility] Swab (Axilla and Groin) Non-blood Collection / Unknown 07/08/2025 11:50 PM EDT 07/09/2025 12:17 AM EDT Narrative [facility] - 07/09/2025 11:26 AM EDT This PCR assay was developed and its performance characteristics determined by [facility] as appropriate for clinical purposes. This assay has not been cleared or approved by the FDA, but is performed in a CLIA regulated laboratory that is qualified to perform high-complexity testing. Luanne Crawofrd MD LAB MICROBIOLOGY - GENERAL ORDERABLES Final Result [facility] [address] [place] [address] * Multi Drug Resistance Test (07/08/2025 11:50 PM EDT) Culture No growth at day 1 07/10/2025 5:45 AM EDT [facility] Swab (Nares and Leann Rectal) Non-blood Collection / Unknown 07/08/2025 11:50 PM EDT 07/09/2025 12:17 AM EDT Narrative [facility] - 07/10/2025 5:45 AM EDT This test was developed and its performance characteristics determined by the [facility]. Although the media is FDA-approved, it is not FDA-approved for all specimen types submitted. The FDA has determined that such clearance or approval is not necessary. This test is used for surveillance purposes. It should not be regarded as investigational or for research. The [facility] is certified under the Clinical Laboratory Improvement Amendments of 1988 (CLIA-88) as qualified to perform high complexity clinical laboratory testing. us Luanne Crawford MD LAB MICROBIOLOGY - GENERAL ORDERABLES Final Result [facility] [address] [place] [address] * (ABNORMAL) Blood gas, arterial (07/08/2025 11:50 PM EDT) pH, Arterial 7.27(L) 7.35 - 7.45 LAB HEMATOLOGY METHOD 07/09/2025 12:00 AM EDT [facility] pCO2, Arterial 53(H) 35 - 48 mmHg LAB HEMATOLOGY METHOD 07/09/2025 12:00 AM EDT [facility] pO2, Arterial 114(H) 83 - 108 mmHg LAB HEMATOLOGY METHOD 07/09/2025 12:00 AM EDT [facility] SO2, Measured, Arterial 99(H) 94 - 98 % LAB HEMATOLOGY METHOD 07/09/2025 12:00 AM EDT [facility] Base Excess, Arterial -3.1(L) -2.0 - 3.0 mmol/L LAB HEMATOLOGY METHOD 07/09/2025 12:00 AM EDT [facility] Bicarbonate, Calculated, Arterial 24 22 - 26 mmol/L LAB HEMATOLOGY METHOD 07/09/2025 12:00 AM EDT [facility] Hematocrit, Whole Blood 31.0(L) 34.0 - 45.0 % LAB HEMATOLOGY METHOD 07/09/2025 12:00 AM EDT [facility] Sodium, Whole Blood 134(L) 136 - 145 mmol/L LAB HEMATOLOGY METHOD 07/09/2025 12:00 AM EDT [facility] Potassium, Whole Blood 3.5(L) 3.6 - 4.9 mmol/L LAB HEMATOLOGY METHOD 07/09/2025 12:00 AM EDT [facility] Chloride, Whole Blood 101 97 - 107 mmol/L LAB HEMATOLOGY METHOD 07/09/2025 12:00 AM EDT [facility] Glucose, Whole Blood 315(H) 74 - 99 mg/dL LAB HEMATOLOGY METHOD 07/09/2025 12:00 AM EDT [facility] Ionized Calcium, Whole Blood 5.1 4.6 - 5.1 mg/dL LAB HEMATOLOGY METHOD 07/09/2025 12:00 AM EDT [facility] Lactate, Arterial, Whole Blood 1.7(H) 0.5 - 1.6 mmol/L LAB HEMATOLOGY METHOD 07/09/2025 12:00 AM EDT [facility] Blood Arterial blood specimen / Unknown Arterial Puncture / Unknown 07/08/2025 11:50 PM EDT 07/08/2025 11:59 PM EDT us [facility] BLOOD ORDERABLES Sarah l Result [facility] [address] [place] [address] * (ABNORMAL) POCT glucose meter (07/08/2025 11:49 PM EDT) POCT Glucose 316(H) 74 - 99 mg/dL [...] Comment 07/08/2025 11:50 PM EDT [facility] Asic Verification Engineer ID Mary Cotto 07/08/2025 11:50 PM EDT [facility] Device ID [id number] 07/08/2025 11:50 PM EDT [facility] Specimen Type POC Arterial 07/08/2025 11:50 PM EDT [facility] Blood Arterial blood specimen / Unknown 07/08/2025 11:49 PM EDT 07/08/2025 11:50 PM EDT us Luanne Crawford MD LAB POINT OF CARE TEST DOCKED DEVICE UNSOLICITED RESULTS Final Result [facility] [address] [place] [address] * (ABNORMAL) Tissue Culture and Gram Stain (07/08/2025 10:48 PM EDT) Culture Light Growth 07/13/2025 1:13 PM EDT [facility] Culture 1+ Schaalia turicensis (formerly known as Actinomyces turicensis)(A) 07/13/2025 1:13 PM EDT [facility] Comment: The organism value for this result has been updated. These results have been appended to the previously preliminary verified report. This is a corrected result. Previous organism was Gram positive anthony on 07/11/2025 at 1052 EDT. Culture 1+ Staphylococcus hominis(A) 07/13/2025 1:13 PM EDT [facility] Comment: This isolate has been identified using the FDA Approved Interludeyper CA System The organism value for this result has been updated. These results have been appended to the previously preliminary verified report. Gram Stain Result Few Polymorphonuclear leukocytes(A) 07/13/2025 1:13 PM EDT [facility] Gram Stain Result Numerous Gram negative rods(A) 07/13/2025 1:13 PM EDT [facility] Gram Stain Result Few Gram positive cocci in pairs(A) 07/13/2025 1:13 PM EDT [facility] Tissue Topography unknown / Unknown 07/08/2025 10:48 PM EDT 07/09/2025 12:14 AM EDT Comment:Pre-op diagnosis: Necrotizing fasciitis (CMS/HCC) [M72.6] us Luanne Crawford MD LAB MICROBIOLOGY - GENERAL ORDERABLES Final Result [facility] [address] [place] [address] * Transfuse fresh frozen plasma (07/08/2025 10:35 PM EDT) Richard N Roxane [employer] BLOOD TRANSFUSION ORDERAB LES Final Result * Transfuse RBC (07/08/2025 10:29 PM EDT) Richard Betts [employer] BLOOD TRANSFUSION ORDERAB LES Final Result * (ABNORMAL) Blood gas panel, arterial (07/08/2025 10:08 PM EDT) pH, Arterial 7.28(L) 7.35 - 7.45 LAB HEMATOLOGY METHOD 07/08/2025 10:15 PM EDT [facility] pCO2, Arterial 50(H) 35 - 48 mmHg LAB HEMATOLOGY METHOD 07/08/2025 10:15 PM EDT [facility] pO2, Arterial 121(H) 83 - 108 mmHg LAB HEMATOLOGY METHOD 07/08/2025 10:15 PM EDT [facility] SO2, Measured, Arterial 99(H) 94 - 98 % LAB HEMATOLOGY METHOD 07/08/2025 10:15 PM EDT [facility] Base Excess, Arterial -3.6(L) -2.0 - 3.0 mmol/L LAB HEMATOLOGY METHOD 07/08/2025 10:15 PM EDT [facility] Bicarbonate, Calculated, Arterial 23 22 - 26 mmol/L LAB HEMATOLOGY METHOD 07/08/2025 10:15 PM EDT [facility] Hematocrit, Whole Blood 29.9(L) 34.0 - 45.0 % LAB HEMATOLOGY METHOD 07/08/2025 10:15 PM EDT [facility] Sodium, Whole Blood 133(L) 136 - 145 mmol/L LAB HEMATOLOGY METHOD 07/08/2025 10:15 PM EDT [facility] Potassium, Whole Blood 3.5(L) 3.6 - 4.9 mmol/L LAB HEMATOLOGY METHOD 07/08/2025 10:15 PM EDT [facility] Chloride, Whole Blood 101 97 - 107 mmol/L LAB HEMATOLOGY METHOD 07/08/2025 10:15 PM EDT [facility] Glucose, Whole Blood 351(H) 74 - 99 mg/dL LAB HEMATOLOGY METHOD 07/08/2025 10:15 PM EDT [facility] Ionized Calcium, Whole Blood 4.5(L) 4.6 - 5.1 mg/dL LAB HEMATOLOGY METHOD 07/08/2025 10:15 PM EDT [facility] Lactate, Arterial, Whole Blood 2.1(H) 0.5 - 1.6 mmol/L LAB HEMATOLOGY METHOD 07/08/2025 10:15 PM EDT [facility] Blood Arterial blood specimen / Unknown 07/08/2025 10:08 PM EDT 07/08/2025 10:14 PM EDT Comment:Pre-op diagnosis: Necrotizing fasciitis (CMS/HCC) [M72.6] us Luanne Crawford MD LAB BLOOD ORDERABLES Final Result [facility] [address] [place] [address] * Surgical Pathology Exam (07/08/2025 10:07 PM EDT) Case Report Surgical Pathology Case: [id number] Authorizing Provider: Luanne Crawford MD Collected: 07/08/20257 Ordering Location: [facility] A OPERATING ROOM Received: 07/09/2025 0740 Pathologist: Boaz Fernandez MD Specimens: A) - Other (specify site), saphenous vein B) - Other (specify site), right leg 07/10/2025 3:45 PM EDT [facility] Final Diagnosis A. SAPHENOUS VEIN SEGMENT, REMOVAL: - SCLEROTIC VEIN WITH ADVENTITIAL INFLAMMATION. B. RIGHT LEG TISSUE DEBRIDEMENT: - ACUTE NECROTIZING FASCIITIS OF SKIN AND SOFT TISSUE. 07/10/2025 3:45 PM EDT [facility] at 1545 EDT Clinical Information Necrotizing fasciitis; post recent boil self popped wound. 50 y.o. female with PMH of DM, hidradenitis supparativa, current smoker (1.5 ppd), UTI, depression, anxiety, asthma, HLD, Celiac disease, 07/10/2025 3:45 PM EDT [facility] Gross Description A. SAPHENOUS VEIN Specimen is received fresh and placed in formalin labeled saphenous vein. Received is a segment of vessel that measures 8.5 cm in length and up to 0.7 cm in diameter. Specimen is sectioned to reveal a pinpoint lumen with dried blood. [employer] sections are taken and submitted in cassette A1. Cold Time: 8h 56m Abhishek Baptiste MD B. RIGHT LEG Specimen is received fresh labeled right leg. Received are numerous fragments of skin and underlying soft tissue that measure in aggregate 25.0 x 25.0 x 7.5 cm. Scattered areas of skin and soft tissue notable for being green-black, foul-smelling and extensively necrotic. [employer] Operator sections are taken and submitted in cassettes B1-B2. Abhishek Baptiste MD 07/10/2025 3:45 PM EDT [facility] Note: A resident was involved in the service. I attest I examined the relevant preparations for the specimens and confirmed the diagnosis or interpretation. 07/10/2025 3:45 PM EDT [facility] Tissue Topography unknown / Unknown 07/08/2025 10:07 PM EDT 07/09/2025 7:40 AM EDT Comment:Pre-op diagnosis: Necrotizing fasciitis (CMS/HCC) [M72.6] Tissue specimen (specimen) Topography unknown / Unknown 07/08/2025 10:49 PM EDT 07/09/2025 7:40 AM EDT Comment:Pre-op diagnosis: Necrotizing fasciitis (CMS/HCC) [M72.6] Luanne Crawford MD LAB PATHOLOGY ORDERABLES F inal Result [facility] [address] [place] [address] * Transfuse fresh frozen plasma (07/08/2025 10:04 PM EDT) Richard Betts [employer] BLOOD TRANSFUSION ORDERAB LES Final Result * Transfuse fresh frozen plasma: 1 Units (07/08/2025 10:04 PM EDT) Richard Betts [employer] BLOOD TRANSFUSION ORDERAB LES Final Result * Transfuse RBC (07/08/2025 9:41 PM EDT) Richard Yeboahshahnazkangjaz [employer] BLOOD TRANSFUSION ORDERAB LES Final Result * Transfuse RBC: 1 Units (07/08/2025 9:41 PM EDT) Richard Betts [employer] BLOOD TRANSFUSION ORDERAB LES Final Result * Prepare Fresh Frozen Plasma: 2 Units (07/08/2025 9:24 PM EDT) Product Code S5095H05 [facility] Dispense Status Transfused [facility] BLOOD BANK Blood Expiration Date [id number] BLOOD BANK Unit Number [id number] [facility] B LOOD BANK Product Blood Type 5100 [facility] BLOOD B[facility] Blood Type O+ CH [facility]LOOD [facility] Product Code [id number] [facility] Dispense Status Transfused [facility] BLOOD BANK Blood Expiration Date [id number] BLOOD BANK Unit Number [id number] [facility] B LOOD BANK Product Blood Type 5100 [facility]LOOD [facility] Blood Type O+ [facility] Blood Venous blood specimen / Unknown Richard Betts CRNA BLOOD BANK PRODUCT ORDERA BLES Final Result Performing Organization Address City/State/[facility] Co de Phone Number BLOOD BANK [address] [place] [address], * Prepare Leukocyte Reduced RBC: 2 Units (07/08/2025 9:23 PM EDT) Product Code [id number] [facility] Dispense Status Transfused BLOOD BANK Blood Expiration Date [id number] BLOOD BANK Unit Number [id number] CH B LOOD BANK Product Blood Type 5100 [facility]LOOD B[facility] Blood Type O+ CH BLOOD BANK Crossmatch Compatible CH BLOOD BANK Product Code [id number] [facility] Dispense Status Transfused BLOOD BANK Blood Expiration Date [id number] BLOOD BANK Unit Number [id number] [facility] B LOOD BANK Product Blood Type 5100 [facility]LOOD [facility] Blood Type O+ CH BLOOD B[facility] Crossmatch Compatible [facility] BLOOD BANK Other Richard Betts [employer] BLOOD BANK PRODUCT ORDERA BLES Final Result BLOOD BANK [address] [place] [address], * (ABNORMAL) Abscess Culture and Gram Stain (07/08/2025 9:06 PM EDT) Culture Light Growth 07/13/2025 1:13 PM EDT [facility] Culture 1+ Mixed skin silvestre(A) 07/13/2025 1:13 PM EDT [facility] Comment: The organism value [...] as Actinomyces turicensis)(A) 07/13/2025 1:13 PM EDT [facility] Comment: This result was determined by MALDI tof Mass spectrometry. This assay was developed and its performance characteristics determined by [facility] as appropriate for clinical purposes. [...] Gram positive cocci(A) 07/13/2025 1:13 PM EDT [facility] Gram Stain Result Few Gram variable rods(A) 07/13/2025 1:13 PM EDT [facility] Gram Stain Result Moderate Gram positive rods(A) 07/13/2025 1:13 PM EDT [facility] Gram Stain Result Numerous Gram negative rods(A) 07/13/2025 1:13 PM EDT [facility] Gram Stain Result Numerous Gram negative coccobacilli(A) 07/13/2025 1:13 PM EDT [facility] Gram Stain Result Moderate Polymorphonuclear leukocytes(A) 07/13/2025 1:13 PM EDT [facility] Swab Topography unknown / Unknown 07/08/2025 9:06 PM EDT 07/08/2025 9:15 PM EDT Comment:Pre-op diagnosis: Necrotizing fasciitis (CMS/HCC) [M72.6] us Luanne Crawford MD LAB MICROBIOLOGY - GENERAL ORDERABLES Final Result [facility] [address] [place] [address] * (ABNORMAL) POCT arterial blood gas gem (07/08/2025 8:51 PM EDT) pH, Arterial 7.28(L) 7.35 - 7.45 07/08/2025 8:53 PM EDT [facility] pCO2, Arterial 53(H) 35 - 48 mm Hg 07/08/2025 8:53 PM EDT [facility] pO2, Arterial 152(H) 83 - 108 mm Hg 07/08/2025 8:53 PM EDT [facility] SO2, Arterial 99(H) 94 - 98 % 07/08/2025 8:53 PM EDT [facility] Base Excess, Arterial -2.3(L) -2 - 3 mmol/L 07/08/2025 8:53 PM EDT [facility] HCO3, Arterial 24.9 22 - 26 mmol/L 07/08/2025 8:53 PM EDT [facility] Total Hemoglobin, Arterial, Whole Blood 10.9(L) 11.2 - 15.7 g/dL 07/08/2025 8:53 PM EDT [facility] Hematocrit, Arterial 33.0(L) 34.0 - 45.0 % 07/08/2025 8:53 PM EDT [facility] Sodium, Arterial 131(L) 136 - 145 mmol/L 07/08/2025 8:53 PM EDT [facility] Potassium, Arterial 3.8 3.6 - 4.9 mmol/L 07/08/2025 8:53 PM EDT [facility] Chloride, Whole Blood 98 97 - 107 mmol/L 07/08/2025 8:53 PM EDT [facility] Glucose, Arterial 418(H) 74 - 99 mg/dL 07/08/2025 8:53 PM EDT [facility] Ionized Calcium, Arterial 4.9 4.6 - 5.1 mg/dL 07/08/2025 8:53 PM EDT [facility] Lactate, Arterial 1.6 0.5 - 1.6 mmol/L 07/08/2025 8:53 PM EDT [facility] Body Temperature 37.0 Celsius 07/08/2025 8:53 PM EDT [facility] pH, Temp Corrected, Arterial 7.28(L) 7.35 - 7.45 07/08/2025 8:53 PM EDT [facility] pCO2, Temp Corrected, Arterial 53(H) 35 - 48 mm Hg 07/08/2025 8:53 PM EDT [facility] pO2, Temp Corrected, Arterial 152(H) 83 - 108 mm Hg 07/08/2025 8:53 PM EDT [facility] Asic Verification Engineer ID Yadi Goel 07/08/2025 8:53 PM EDT [facility] Blood, Arterial Whole blood specimen / Unknown 07/08/2025 8:51 PM EDT 07/08/2025 8:53 PM EDT us Luanne Crawford MD LAB POINT OF CARE TEST DOCKED DEVICE UNSOLICITED RESULTS Final Result [facility] [address] [place] [address] * ED HIV 1/2 Antibody/Antigen Screen w/Reflex to HIV 1/2 Differentiation (07/08/2025 6:14 PM EDT) HIV 1 & 2 Antibody/Antigen Screen Non Reactive Non Reactive 07/08/2025 7:12 PM EDT [facility] Comment:Screening for HIV 1 & 2 antibodies, and P24 antigen is NONREACTIVE. No confirmatory testing is required. Blood Venous blood specimen / Unknown Venipuncture / Unknown 07/08/2025 6:14 PM EDT 07/08/2025 6:30 PM EDT us My Charles MD LAB BLOOD ORDERABLES Fi nal Result [facility] [address] [place] [address] * Hepatitis C Antibody - ED (07/08/2025 6:14 PM EDT) [facility] Hepatitis C Antibody Negative Negative 07/08/2025 7:12 PM EDT [facility] Blood Venous blood specimen / Unknown Venipuncture / Unknown 07/08/2025 6:14 PM EDT 07/08/2025 6:30 PM EDT My Charles MD LAB BLOOD ORDERABLES Fi nal Result Performing Organization Address [facility] de Phone Number [facility] [address] [place] [address] * (ABNORMAL) C-Reactive protein (07/08/2025 6:14 PM EDT) [facility] CRP, Plasma 462.2(H) <=8.0 mg/L 07/08/2025 7:18 PM EDT [facility] Blood Venous blood specimen / Unknown Venipuncture / Unknown 07/08/2025 6:14 PM EDT 07/08/2025 6:23 PM EDT Narrative [facility] - 07/08/2025 7:18 PM EDT This CRP test is appropriate for assessment of infection, systemic inflammation and/or tissue injury. To assess cardiovascular disease risk order high sensitivity CRP (CRPH). us My Charles MD LAB BLOOD ORDERABLES Fi nal Result Performing Organization Address [facility] [place] [address] * (ABNORMAL) Lactic acid, venous (07/08/2025 6:14 PM EDT) [facility] Lactate, Venous, Whole Blood 2.6(H) 0.5 - 2.2 mmol/L LAB HEMATOLOGY METHOD 07/08/2025 6:29 PM EDT [facility] Blood Venous blood specimen / Unknown Venipuncture / Unknown 07/08/2025 6:14 PM EDT 07/08/2025 6:23 PM EDT My Charles MD LAB BLOOD ORDERABLES Fi nal Result [facility] [address] [place] [address] * Type and screen (07/08/2025 6:14 PM EDT) ABO/Rh O Positive 07/08/2025 6:10 PM EDT [facility] Antibody Screen Negative 07/08/2025 6:10 PM EDT [facility] Specimen Expiration 07/11/2025 23:59 07/08/2025 6:10 PM EDT [facility] Blood Venous blood specimen / Unknown Venipuncture / Unknown 07/08/2025 6:14 PM EDT 07/08/2025 6:18 PM EDT My Charles MD LAB BLOOD BANK TEST ORD ERABLES Final Result Performing Organization Address [facility] Co de Phone Number BLOOD BANK [address] [place] [address] * (ABNORMAL) PT-INR (07/08/2025 6:14 PM EDT) Prothrombin Time 15.3(H) 12.0 - 14.3 sec 07/08/2025 6:56 PM EDT [facility] INR 1.2(H) 0.9 - 1.1 07/08/2025 6:56 PM EDT [facility] Blood Venous blood specimen / Unknown Venipuncture / Unknown 07/08/2025 6:14 PM EDT 07/08/2025 6:23 PM EDT Narrative [facility] - 07/08/2025 6:56 PM EDT OPTIMAL INR RANGES FOR PATIENT ON ORAL ANTICOAGULANT THERAPY Prevention of venous thromboembolism INR 2.0 to 3.0 In patients with heart disease: Atrial fibrillation INR 2.0 to 3.0 Valvular heart disease INR 2.0 to 3.0 Tissue heart valves INR 2.0 to 3.0 Mechanical prosthetic valves INR 2.5 to 3.5 Prevention of recurrent ND INR 2.5 to 3.5 My Charles MD LAB BLOOD ORDERABLES Fi nal Result [facility] [address] [place] [address] * (ABNORMAL) CBC w/diff (07/08/2025 6:14 PM EDT) WBC Count 26.15(H) 3.70 - 10.30 10*3/uL LAB HEMATOLOGY METHOD 07/08/2025 9:04 PM EDT [facility] RBC Count 3.97 3.90 - 5.20 10*6/uL LAB HEMATOLOGY METHOD 07/08/2025 9:04 PM EDT [facility] HGB 10.9(L) 11.2 - 15.7 g/dL LAB HEMATOLOGY METHOD 07/08/2025 9:04 PM EDT [facility] HCT 33.6(L) 34.0 - 45.0 % LAB HEMATOLOGY METHOD 07/08/2025 9:04 PM EDT [facility] Platelet Count 329 155 - 369 10*3/uL LAB HEMATOLOGY METHOD 07/08/2025 9:04 PM EDT [facility] MCV 85 79 - 98 fL LAB HEMATOLOGY METHOD 07/08/2025 9:04 PM EDT [facility] MCH 27.5 26.0 - 32.0 pg LAB HEMATOLOGY METHOD 07/08/2025 9:04 PM EDT [facility] MCHC 32.4 30.7 - 35.5 g/dL LAB HEMATOLOGY METHOD 07/08/2025 9:04 PM EDT [facility] RDW 17.3(H) 11.5 - 14.5 % LAB HEMATOLOGY METHOD 07/08/2025 9:04 PM EDT [facility] MPV 10.1 8.8 - 12.5 fL LAB HEMATOLOGY METHOD 07/08/2025 9:04 PM EDT [facility] nRBC 0.0 <=0.0 per 100 WBCs LAB HEMATOLOGY METHOD 07/08/2025 9:04 PM EDT [facility] Differential Type Automated LAB HEMATOLOGY METHOD 07/08/2025 9:04 PM EDT [facility] Neutrophils % 91 % LAB HEMATOLOGY METHOD 07/08/2025 9:04 PM EDT [facility] Lymphocytes % 4 % LAB HEMATOLOGY METHOD 07/08/2025 9:04 PM EDT [facility] Monocytes % 4 % LAB HEMATOLOGY METHOD 07/08/2025 9:04 PM EDT [facility] Eosinophils % 0 % LAB HEMATOLOGY METHOD 07/08/2025 9:04 PM EDT [facility] Basophils % 0 % LAB HEMATOLOGY METHOD 07/08/2025 9:04 PM EDT [facility] Immature Granulocytes % 1 % LAB HEMATOLOGY METHOD 07/08/2025 9:04 PM EDT [facility] Neutrophils Absolute 23.61(H) 1.60 - 6.10 10*3/uL LAB HEMATOLOGY METHOD 07/08/2025 9:04 PM EDT [facility] Lymphocytes Absolute 1.15(L) 1.20 - 3.90 10*3/uL LAB HEMATOLOGY METHOD 07/08/2025 9:04 PM EDT [facility] Monocytes Absolute 0.98(H) 0.30 - 0.90 10*3/uL LAB HEMATOLOGY METHOD 07/08/2025 9:04 PM EDT [facility] Eosinophils Absolute 0.04 0.00 - 0.50 10*3/uL LAB HEMATOLOGY METHOD 07/08/2025 9:04 PM EDT [facility] Basophils Absolute 0.09 0.00 - 0.10 10*3/uL LAB HEMATOLOGY METHOD 07/08/2025 9:04 PM EDT [facility] Immature Granulocytes Absolute 0.25(H) 0.00 - 0.06 10*3/uL LAB HEMATOLOGY METHOD 07/08/2025 9:04 PM EDT [facility] Blood Venous blood specimen / Unknown Venipuncture / Unknown 07/08/2025 6:14 PM EDT 07/08/2025 6:23 PM EDT Narrative [facility] - 07/08/2025 9:04 PM EDT Therapeutic decision making should be based on absolute values, rather than percentages. us My Charles MD LAB BLOOD ORDERABLES Fi nal Result [facility] [address] [place] [address] * (ABNORMAL) CMP (07/08/2025 6:14 PM EDT) [facility] Glucose, Plasma 411(H) 74 - 99 mg/dL 07/08/2025 7:18 PM EDT [facility] BUN, Plasma 33(H) 7 - 21 mg/dL 07/08/2025 7:18 PM EDT [facility] Creatinine, Plasma 1.99(H) 0.60 - 1.10 mg/dL 07/08/2025 7:18 PM EDT [facility] BUN/Creatinine Ratio 17 07/08/2025 7:18 PM EDT [facility] Sodium, Plasma 131(L) 136 - 145 mmol/L 07/08/2025 7:18 PM EDT [facility] Potassium, Plasma 4.0 3.6 - 4.9 mmol/L 07/08/2025 7:18 PM EDT [facility] Chloride, Plasma 93(L) 97 - 107 mmol/L 07/08/2025 7:18 PM EDT [facility] CO2, Plasma 22 22 - 29 mmol/L 07/08/2025 7:18 PM EDT [facility] Anion Gap 16 6 - 16 mmol/L 07/08/2025 7:18 PM EDT [facility] Total Calcium, Plasma 9.3 8.9 - 10.2 mg/dL 07/08/2025 7:18 PM EDT [facility] Total Protein 6.0(L) 6.3 - 7.9 g/dL 07/08/2025 7:18 PM EDT [facility] Albumin, Plasma 2.6(L) 3.5 - 5.2 g/dL 07/08/2025 7:18 PM EDT [facility] AST, Plasma 16 10 - 35 U/L 07/08/2025 7:18 PM EDT [facility] ALT, Plasma 15 10 - 35 U/L 07/08/2025 7:18 PM EDT [facility] Alkaline Phosphatase, Plasma 165(H) 35 - 104 U/L 07/08/2025 7:18 PM EDT [facility] Total Bilirubin, Plasma 0.4 0.2 - 1.1 mg/dL 07/08/2025 7:18 PM EDT [facility] eGFRcr 30.3 mL/min/1.7 3m*2 07/08/2025 7:18 PM EDT [facility] Comment:Reported eGFRcr in m L/min/1.73m2 is based the CKD-EPI 2020 equation that does not use a race coefficient. Blood Venous blood specimen / Unknown Venipuncture / Unknown 07/08/2025 6:14 PM EDT 07/08/2025 6:23 PM EDT us My Charles MD LAB BLOOD ORDERABLES Fi nal Result [facility] [address] [place] [address] * MS CRITICAL CARE, E/M 30-74 MINUTES (07/08/2025 5:58 [...] use disorder Acute respiratory failure Septic shock ([facility]) Absence seizure ([facility]) 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 epilepsy Chronic obstructive pulmonary disease, unspecified HTN (hypertension), benign Essential hypertension, benign Depression Depressive disorder, not elsewhere classified Morbid (severe) obesity due to excess calories ([facility]) Urge incontinence HLD (hyperlipidemia) Other and unspecified hyperlipidemia JOSEP (obstructive sleep apnea) Obstructive sleep apnea (adult) (pediatric) Postoperative pain Other acute postoperative pain Hypoxia Hypoxemia documented in this encounter Admitting Diagnoses Diagnosis Necrotizing fasciitis ([facility]) Necrotizing fasciitis documented in this encounter Administered [...] Every 6 hours scheduled, First dose on Tomasa 07/11/25 at 1200, Until Discontinued, Routine Given 07/19/2025 [...] 1-10 Units, Intravenous, Once, 1 dose, On 07/08/25 at 2145, Routine Bolus from Bag 07/09/2025 [...] EDT 600 m g 600 mL/hr New 07/11/2025 5:26 PM EDT 600 mg 600 mL/hr New 07/11/2025 5:15 AM EDT 600 mg 600 [...] at 0130, Routine, Recovery(Phase II-Outpatient)/On Unit(Inpatient) New 07/09/2025 2:08 AM EDT 2 g 25 mL/hr magnesium sulfate IVPB 2 g 2 g, Intravenous, Once, 1 dose, On Tue07/11/25 at 0330, Routine, Recovery(Phase II-Outpatient)/On Unit(Inpatient) 07/11/2025 2:42 AM EDT 2 g 25 mL/hr magnesium sulfate IVPB 2 g 2 g, Intravenous, Once, 1 dose, On Tue07/17/25 at 0730, Routine 07/17/2025 10:01 AM EDT 2 g 2 5 mL/hr magnesium sulfate IVPB 2 g 2 g, Intravenous, Once, 1 dose, On Tue07/19/25 at 0645, Routine 07/19/2025 6:08 AM EDT 2 g 25 [...] Routine, Sign 1540 (Given - Provider: Madeline M Girard, RN) insulin glargine-yfgn 100 UNIT/ML injection 10 Units 10 Units, Subcutaneous, Nightly, First dose (after last modification) on Tue07/19/25 at 2100, Until Discontinued, Routine insulin glargine-yfgn 100 UNIT/ML injection 8 Units (CANCELED) 8 Units, Subcutaneous, Nightly, First dose (after last modification) on Tue07/17/25 at 2100, Until Discontinued, Routine 223 (Given - Provider: Inessa Almazan RN) 2122 (Given - Provider: Inessa Almazan RN) insulin [...] Dose 0-3 Units, Subcutaneous, 2 times nightly (2099 & 299), First dose on Tue07/11/25 at 2100, Until Discontinued, Routine 030 (Not Given - Provider: Eulalia Estrada RN - Reason: Order parameters not met)223 (Not Given - Provider: Inessa Almazan RN - Reason: Order parameters not met) 299 (Not Given - Provider: Inessa Almazan RN - Reason: Order parameters not met)2126 (Not Given - Provider: Inessa Almazan RN [...] 0900, Until Discontinued, Routine, Recovery(Phase II-Outpatient)/On Unit(Inpatient) 100 (Given - Provider: Josi Ann RN)2017 (Given - Provider: Inessa Almazan RN) 0852 (Given - Provider: Josi Ann RN)2114 (Given - Provider: Inessa Almazan RN) 09 (Not Given - Provider: Kalyn Martell RN - Reason: Patient/family refused) lamoTRIgine (LaMICtal XR) 24 hr tablet 100 mg 100 mg, Oral, Nightly, First dose on Tue07/11/25 at 2000, Until Discontinued, Routine 2017 (Given [...] on Tue07/11/25 at 1100, Until Discontinued, Routine 1001 (Given - Provider: Josi Ann RN)1658 (Given - Provider: Josi Ann RN)2018 (Given - Provider: Inessa Almazan RN) 0851 (Given - Provider: Josi Ann RN)181 (Not Given - Provider: Josi Ann RN - Reason: Hold for condition: must add comment - Comment: pt off floor)2113 (Given - Provider: Inessa Almazan RN) 0840 (Given - Provider: Junior Sabrina Santos) metoprolol succinate XL (Toprol-XL) 24 hr tablet 100 mg 100 mg, Oral, Nightly, First dose on Tue07/16/25 at 2100, Until Discontinued, Routine 2018 (Given [...] Comment: no wv in place due to [facility] dc) polyethylene glycol (Miralax) packet 17 g 17 g, Oral, Daily, First dose on Tue07/12/25 at 1045, Until Discontinued, Routine 1002 (Not Given - Provider: Josi Ann RN - Reason: Patient/family refused) 0852 (Not Given - Provider: Josi Ann RN - Reason: Patient/family refused) 0913 (Not Given - Provider: Kalyn Martell RN - Reason: Patient/family refused) rosuvastatin (Crestor) tablet 20 mg 20 mg, Oral, Nightly, First dose on Tue07/11/25 at 2100, Until Discontinued, Routine 2019 (Given - Provider: Inessa Almazan RN) 2113 (Given - Provider: Inessa Almazan RN) senna-docusate (Leann-Colace) 8.6-50 MG per tablet 1 tablet 1 tablet, Oral, 2 times daily, First dose (after last modification) on Tue07/12/25 at 2100, Until Discontinued, Routine 1002 (Not Given - Provider: Josi Ann RN - Reason: Patient/family refused)2018 (Not Given - Provider: Inessa D Nipper, RN - Reason: Patient/family refused) 0852 (Not Given - Provider: Josi Ann RN - Reason: Patient/family refused)2114 (Given - Provider: Inessa Almazan, RN) 09 (Not Given - Provider: Kalyn Martell RN - Reason: Patient/family refused) sodium chloride 0.9 % flush 10 mL 10 mL, Intravenous, Every 12 hours, First dose on Tue07/09/25 at 0030, Until Discontinued, Routine 0000 (Given - Provider: Eulalia Estrada RN)1245 (Canceled Entry - Provider: Josi Ann RN)2312 (Given - Provider: Inessa Almazan RN) 1242 (Canceled Entry - Provider: Josi [...] 6 hours PRN, Starting on Tue07/11/25 at 0712, Until Tue07/19/25 at 1456, Routine, [...] Sublingual, Every 15 min PRN, Starting on 07/08/25 at 2053, Until Tu07/16/25 at 1005, Routine, low blood sugar, per [...] 6 hours PRN, Starting on Tue07/11/25 at 0712, Until Tue07/19/25 at 1456, Routine, nausea, vomiting Or ondansetron (Zofran) injection 4 mg (CANCELED) 4 mg, Intravenous, Every 6 hours PRN, Starting on Tue07/11/25 at 0712, Until Tomasa 07/18/25 at 1014, Routine, vomiting, nausea Or ondansetron (Zofran) 4 MG/5ML solution 4 mg (CANCELED) 4 mg, Oral, Every 6 hours PRN, Starting on Tue07/11/25 at 0712, Until Tue07/11/25 at 0715, Routine, nausea, vomiting Group 3: [...] documented as of this encounter Care Teams [employer] Helper Relationship Specialty Start Date End Date Yenny Dhillon APRN [address] [place] [address] PCP - General 07/22/23 documented as of this encounter
--- OUTSIDE RECORDS SUMMARY | 2025-07-08 20:00 | XMS_ITS | Encounter Summary ---
Author Organization Healthcare Address [address] [place] [address] Care Team Providers Care Collections Analyst Name Role Phone Yenny Dhillon APRN Primary Care Provider [phone] Reason for Visit * Reason Comments Wound Check * Auth/Cert (Routine) Specialty Diagnoses / Procedures Referred By Bharati wiggins Referred To Contact Diagnoses Necrotizing fasciitis ([facility]/HCC) Necrotizing Fascitis Luanne Crawford MD [address] [address] Phone: tel: fax: PAV A Inpatient [address] [place] [address] Phone: tel: Referral ID Status Reason Start Date Expiration Date Visits Re quested Visits Authorized [id number] 1 1 Encounter Details Date Type Department Care Team (Late st Contact Info) Description 07/08/2025 8:00 PM EDT - 07/08/2025 9:30 PM EDT Surgery P[facility] A OPERATING ROOM [address] [place] [address] Luanne Crawford MD [address] [address] IRRIGATION AND DEBRIDEMENT, WOUND [06314 (CPT )] Surgery Details Date/Time Status Location [...] dressing in place, sutures removed on rounds. [facility] can re- apply negative pressurewound therapy: Wound [...] please call our General Surgery Clinic at [phone]. If there are questions or concerns after discharge from the hospital, call Radha Ugalde, Nurse Coordinator between 7am-3pm at [phone]. If it is after hours, weekends, and holidays please call [phone] and ask for the resident rehabilitation supervisor for Emergency General Surgery. Medication requests should be made between the hours of 9:00 AM to 3:00 PM Tuesday thru Tuesday. Please note that based upon recent changes to [place] law related to prescribing opioid pain medications, [...] Outcome: Met Intervention: Promote Activity and Functional [place] Flowsheets Taken 07/18/20252319 by Inessa Almazan, RN [...] Pain Flowsheets Taken 07/19/2025222 by Inessa Almazan, composition professor Interventions: medication (see MAR) Taken 07/18/2025 [address] [...] Discharge Note Cristina Brown 50 y.o. female [facility]: [id number] Admission: 07/08/2025 5:58 PM Primary Problem: Necrotizing fasciitis (CMS/HCC) Primary Marketing Information Manager: Primary Caregiver: Self Assistance Available at Discharge: [...] Community Agency(s): Patient's Choice of Community Agency(s): [employer] [facility] [employer] Patient/Family Anticipated Services at Transition: Patient/Family Anticipated Services at Transition: rehabilitation services DME/Equipment Needed after Discharge: Equipment Currently Used at Home: none Equipment Needed After Discharge: lilly lundy Readmission Within the Last 30 Days: Readmission Within the Last 30 Days: unable to assess Medicare Documentation: N/A Follow-up: Keaton Patel MD [address] [place] [address] [facility] ([facility]) [address] [phone] Go on 07/19/2025 Discharge Transportation: Transportation Anticipated: [...] arranged for this date at [address] [facility] Lounge. Annie Littlejohn * Gauri Rico - Raj Cardona, RN - 07/19/2025 9:44 AM EDT Images from the original note were not included. 1087 Oxycodone Oral Tablet, Immediate Release Brand Names: Oxaydo, Roxicodone What is this medicine? Oxycodone (ys-d-VXD-done) is an opioid pain reliever. It is used to treat moderate to severe pain. What should I tell my health care provider before I take this medicine? They need to know if you have any of these conditions: ? Posey's disease ? Brain tumor or head injury [...] a special medication guide each time you pickle pumper this medicine. ? Overdosage: Taking too much [...] should report to your doctor or health progressive care unit registered nurse as soon as possible: ? allergic reactions [...] attention (report to your doctor or health progressive care unit registered nurse if they continue or are bothersome): ? constipation ? dry mouth ? itching ? nausea, vomiting ? upset stomach This list may not describe all possible side effects. Call your doctor for medical advice about side effects. You may report side effects to FDA at 4-359-HJL-4964. Where should I keep my medicine? This [...] location. To find a disposal location, visit [email or web address]. If you cannot take unused medicine to [...] from the original note were not included. [id number] Naloxone Nasal Meraux WHY is this medicine prescribed? Prescription and [...] pharmacist for the instructions or visit the analytics consultant's website to get the instructions. You [...] or doctor for a copy of the analytics consultant's information for the patient. Are there [...] and out of their sight and reach. https://www.[employer] Dispose of unneeded medications in a way [...] of all of the prescription and nonprescription (krhz-fiq-osswskw) medicines, vitamins, minerals, and dietary supplements you [...] or pharmacist about specific clinical use. The [place] [employer]System [employer] Inc. represents that the information provided hereunder was formulated with a reasonable standard of care, and in conformity with professional standards in the field. The [place] [employer]System Pharmac[employer] Inc. makes no representations or warranties, express or implied, including, but not limited to, any implied warranty of merchantability and/or fitness for a particular purpose, with respect to such information and specifically disclaims all such warranties. Users are advised that decisions regarding drug therapy are complex medical decisions requiring the independent, informed decision of an appropriate health progressive care unit registered nurse, and the information is provided for informational purposes only. The entire monograph for a drug should be reviewed for a thorough understanding of the drug's actions, uses and side effects. The [place] [employer]-System Pharmacists, Inc. does not endorse or recommend the use of any drug.The information is not a substitute for medical care. AHFS?? Patient Medication Information?. ?? Copyright, 2023. The [place] Society of Health-System Pharmacists??, [address], [address], [place], [place]. All Rights Reserved. Duplication for commercial use must be authorized by [facility]. Selected Revisions: May 26, 2024. AHFS?? Patient Medication Information?. ?? Copyright, 2024 * Gauri [facility] - Raj Cardona RN - 07/19/2025 [...] controlled substances: ? Drug Enforcement Agency (HARIS): http://www.deadiversion.JAZZ TECHNOLOGIESoShip It Bag Check.gov/drug_disposal/takeback/index.htm ? National Association of Drug Diversion Investigators (NADDI): http://rxdrugdropbox.org/ ? [place] Office of Drug Control Policy: http://odcp.id.gov/Prescription+Drug+Drop+Box+Sites.htm Are there concerns about or ? ? [...] that tracks prescriptions of controlled substances in [place]. The DANYELLE report tells your doctor if you have been prescribed controlled substances in the past. Doctors must get a DANYELLE report before prescribing controlled substances. What can I do if the information in my DANYELLE report is wrong? You or your doctor may contact the dispenser who reported the information to DANYLELE. If the dispenser agrees that the information should be changed, he or she can fix the DANYELLE report. However, the dispenser may certify that the report is correct. If that is the case, you or your doctor may then call the [place] Drug Enforcement and Professional Practices Branch at .This will start an investigation of the error. * Gauri LouieJANETH - Raj Cardona RN - 07/19/2025 9:44 AM EDT Images from the original note were not included. 23819 Insulin: How to Use and Where to [...] ?needles? or ?sharps.? ? Call your local [employer] company to ask about removing the sharps container. You can also check withthe [facility] for Safe Community Needle Disposal at www.safeneedledisposal.org or 230-199-3090. Storing your insulin ? Keep unopened insulin [...] cold. Last Reviewed Date: 2023 00:00:00 ?? 2028-8558 The [employer]. All rights reserved. This information is not intended as a substitute for professional medical care. Always follow your healthcare professional's instructions. * Gauri Rico - Raj Cardona RN - 07/19/2025 9:43 AM EDT Images from the original note were not included. [id number] Diet: Diabetes Food is an important tool [...] of Nutrition and Dietetics at www.eatright.org o [place] Diabetes Association at www.diabetes.org or 005-801-3272 o Association of Diabetes Care and Education Specialists at www.diabeteseducator.org/ Last Reviewed Date: 2024 00:00:00 ?? [employer]. All rights reserved. This information is not intended as a substitute for professional medical care. Always follow your healthcare professional's instructions. * [facility] Raj Cardona RN - 07/19/2025 9:43 AM EDT Images from the original note were not included. 12998 Diabetes: Understanding Carbohydrates, Fats, and Protein Food [...] foods. Last Reviewed Date: 2024 00:00:00 ?? 3933-5248 [employer]. All rights reserved. This information is not intended as a substitute for professional medical care. Always follow your healthcare professional's instructions. * Gauri LouieJANETH - Raj Cardona RN - 07/19/2025 9:43 AM EDT Images from the original note were not included. 25894 Discharge Instructions: Packing a Wound You have [...] chills. Last Reviewed Date: 2025 00:00:00 ?? 5782-0295 [employer]. All rights reserved. This information is not intended as a substitute for professional medical care. Always follow your healthcare professional's instructions. * Gauri OnJANETH - Raj Cardona RN - 07/19/2025 9:43 AM EDT Images from the original note were not included. 56888 Negative Pressure Wound Therapy Negative pressure wound [...] device. Last Reviewed Date: 2024 00:00:00 ?? 3050-9571 [employer]. All rights reserved. This information is not intended as a substitute for professional medical care. Always follow your healthcare professional's instructions. * Gauri Rico - Raj Cardona RN - 07/19/2025 9:43 AM EDT Images from the original note were not included. 20828 Discharge Instructions: Changing Your Dressing You are [...] doctor. Last Reviewed Date: 2025 00:00:00 ?? 8680-8134 [employer]. All rights reserved. This information is not intended as a substitute for professional medical care. Always follow your healthcare professional's instructions. * [facility] - Raj Cardona RN - 07/19/2025 9:42 AM EDT Images from the original note were not included. [id number] Abscess (Incision and Drainage) An abscess is [...] treatment. Last Reviewed Date: 2024 00:00:00 ?? 2694-1074 [employer]. All rights reserved. This information is not intended as a substitute for professional medical care. Always follow your healthcare professional's instructions. * Gauri Rico - Raj Cardona RN - 07/19/2025 9:42 AM EDT Images from the original note were not included. 40342 Preventing a Surgical Site Infection A risk [...] of infection. ? Controlled body temperature. A sydxs-jhhj-wqomdk temperature during or after surgery prevents oxygen [...] and water or with an alcohol-based hand equipment associate before and after caring for you. Don?t [...] away. Last Reviewed Date: 2024 00:00:00 ?? 8985-6148 [employer]. All rights reserved. This information is not intended as a substitute for professional medical care. Always follow your healthcare professional's instructions. * [facility] - Raj Cardona RN - 07/19/2025 9:42 [...] to the condition itself. It comes from Ghanaian and Latin words for a gnawing sore [...] questions. Last Reviewed Date: 2023 00:00:00 ?? 8764-1875 The [employer]. All rights reserved. This information is not [...] MD PCP name and Address: Yenny Dhillon, ROOF SERVICE TECHNICIAN [address] [facility] [address] [place] [facility] Referring provider name and address: Keaton Patel MD [address] [place] [address] [place] [facility] Chief Concern, Brief History of Present Illness, and Hospital Course Cristina Brown is a 50 y.o. female with PMH of DM, hidradenitis supparativa, current smoker (1.5ppd), hx of absent seizures, UTI, depression, anxiety, asthma, HLD, celiac disease, presenting to [facility] on 07/08/2025 as transfer with concern for [...] stay, and so will be discharged to [facility]. Surgeries and Procedures Procedures performed in this [...] Medications These medications were sent to [facility] [place], [place] - [address] [facility] [facility] [address] naloxone 4 mg/0.1 mL nasal spray Information [...] 07/11/2025 9:23 AM by Gabriel Segovia - [facility]. - Continue Albuterol and DuoNebs. -Pulm toilet [...] - Improving, continue to monitor Septic shock ([facility]) Overview Addendum 07/12/2025 1:55 PM by [...] dressing in place, sutures removed on rounds. [facility] can re- apply negative pressurewound therapy: Wound [...] please call our General Surgery Clinic at [phone]. If there are questions or concerns after discharge from the hospital, call Radha Ugalde, Nurse Coordinator between 7am-3pm at [phone]. If it is after hours, weekends, and holidays please call [phone] and ask for the resident rehabilitation supervisor for Emergency General Surgery. Medication requests should be made between the hours of 9:00 AM to 3:00 PM Tuesday thru Tuesday. Please note that based upon recent changes to [place] law related to prescribing opioid pain medications, [...] normal. Judgment: Judgment normal. Discharge Disposition/Condition Disposition: [employer] Condition: Stable (s/sx potential problems absent or [...] (H) 07/17/2025 I reviewed bg tracing in [facility] glucose timeline 07/19/25 ASSESSMENT Hospital Course: Cristina Brown is a 50 y.o. female with hx of type 2 DM, morbid obesity, hidradenitis supparativa, current smoker (1.5 ppd), hx of absent seizures, UTI, depression, anxiety, asthma, HLD, celiac disease who initially came to [facility] on 07/08/2025 as transfer with concern for [...] to establish care with endocrine provider in [place], [place]. --> Provided patient with address and number of clinic. [[facility] Endocrinology Clinic in the [facility] Physician Building]. -Tentative discharge recommendations: Likely [...] team via secure chat orpage us at [phone] during 7a-7p, Tuesday-Tuesday. For after hours please [...] AM EDT Associated Problem(s): DM (diabetes mellitus) ([facility]) - Patient presenting with significant hyperglycemia, [...] Associated Problem(s): Chronic obstructive pulmonary disease, unspecified ([facility]) Complicates care. Continue Albuterol and DuoNebs. [...] and newly diagnosed JOSEP who presented to [facility] with leukocytosis and exam findings [...] - 07/18/25 0659 07/18/25 0700 - 07/18/25 18507/18/25 190 - 07/19/25 0659 07/19/25 0700 - 07/19/25 [...] the brett pad. After discussion with chief rehabilitation supervisor, decision was made to remove the [place] and place a aow-xck-hqpuvjmc with Kerlix, Polymem, ABD pads, and skin [...] Care Reviewed With: patient 07/18/20252318 by Inessa Almazan, RN Outcome: Ongoing, Progressing Flowsheets Taken 07/18/2025 [...] Concerns: going to rehab 07/18/20252318 by Inessa Almazan, RN Outcome: Ongoing, Progressing [...] EDT Case Management Adult Progress Note Cristina Luz AnayaKevin 50 y.o. female CSN: [id number] Admission: 07/08/2025 5:58 PM Primary Problem: Necrotizing fasciitis (CMS/HCC) Anticipated Discharge Date: 07/19/25 Has Discharge Plans Changed? Yes [facility] [facility] [employer] Acute Rehab Medicare Second Notice: Housing Circumstances: Low Income ( 101-300% Federal Poverty Guideline) Housing Circumstances Action Taken: Medically Ready for Discharge: Anticipated Tomorrow Additional Comments Per the MD pt is medically ready to d/c after she can tolerate her wv being changed without IV painmedication. SW talked with the pt and she is agreeable to go to [facility] however she still has a lot of [...] the MD team. Pt will transfer to [facility] via shuttle on 07/19 if all needs [...] HLD, celiac disease who initially came to [facility] on 07/08/2025 as transfer with concern for [...] to establish care with endocrine provider in [place], [place]. --> Provided patient with address and number of clinic. [[facility] Endocrinology Clinic in the [facility] Physician Building]. -Tentative discharge recommendations: Likely [...] OR Adult Inpatient Diabetes team via secure [employer] [email or web address] Development us at [phone] during -7p, Tuesday-Tuesday. For after hours please [...] 7:05 AM EDT Associated Problem(s): Necrotizing fasciitis ([facility]) - 07/09: debridement of necrotizing fasciitis [...] AM EDT Associated Problem(s): DM (diabetes mellitus) ([facility]) - Patient presenting with significant hyperglycemia, [...] 7:05 AM EDT Associated Problem(s): Postoperative pain [facility] * Progress Notes - Jason Andre [...] Output by Drain (mL) 07/16/25 07 - 07/16/25185807/16/251899 - 07/17/25 0659 07/17/25 07 - 07/17/25 18507/17/251899 - 07/18/25 0659 07/18/25 07 - 07/18/25 [...] by Inessa Almazan RN Progress: improving Taken 07/17/2025 193 by Josi Ann RN Plan of Care [...] Ongoing, Progressing Intervention: Promote Activity and Functional [place] Flowsheets (Taken 07/18/2025204) Activity Assistance Provided: assistance, [...] promoted room darkened * Care Plan - Falls, Josi Peoples RN - 07/17/2025 7:37 PM EDT Problem: [...] Ongoing, Progressing Intervention: Promote Activity and Functional [place] Flowsheets Taken 07/16/2025 0635 by Yessenia Ramirez [...] (H) 07/15/2025 I reviewed bg tracing in [facility] glucose timeline 07/17/25 ASSESSMENT Hospital Course: Cristina Brown is a 50 y.o. female with hx of type 2 DM, morbid obesity, hidradenitis supparativa, current smoker (1.5 ppd), hx of absent seizures, UTI, depression, anxiety, asthma, HLD, celiac disease who initially came to [facility] on 07/08/2025 as transfer with concern for [...] to establish care with endocrine provider in [place], [place]. --> Provided patient with address and number of clinic. [[facility] Endocrinology Clinic in the [facility] Physician Building]. -Tentative discharge recommendations: Likely [...] via secure chat or page us at [phone] during 7a-7p, Tuesday-Tuesday. For after hours please [...] care close to her sisters house in [place]. CM notified. * Assessment & Plan Note - Jason Andre MD - 07/17/2025 10:21 AM EDT Associated Problem(s): Necrotizing fasciitis ([facility]) - 07/09: debridement of necrotizing fasciitis [...] AM EDT Associated Problem(s): DM (diabetes mellitus) ([facility]) - Patient presenting with significant hyperglycemia, [...] Associated Problem(s): Chronic obstructive pulmonary disease, unspecified ([facility]/HCC) Complicates care. Continue Albuterol and DuoNebs. 3L [...] obesity due to excess calories (CMS/[facility]) Complicates all aspect of care * [...] by Drain (mL) 07/15/25 07 - 07/15/25 1859 07/15/25 1900 - 07/16/25 0659 07/16/25 0700 - 07/16/25 1859 07/16/25 1900 - 07/17/25 0659 07/17/25 07 - 07/17/25 [...] Improving, will continue to monitor Septic shock ([facility]/HCC) Present on Admission: Yes Septic shock secondary to necrotizing fascitis. Required Levophed and Vasopressin for circulatory support. Currently off pressor support, continue to monitor pressures. HLD (hyperlipidemia) Present on Admission: Yes Home Rosuvastatin JOSEP (obstructive sleep apnea) Present on Admission: No CPAP at night Postoperative pain [facility] Present on Admission: Unknown Non-Hospital Problems [...] admission Level of Mobility Ambulatory- community Mobility [place] Independent gait without device History of Falls [...] motivated and engaged throughout Visitors Present None Nursing Admin (if applicable) OBJECTIVE PAIN Rates pain at [...] needed areas of treatment space Level of [place] Interventions: Feeding Independent Edge of bed Patient [...] Level of Assistance: Moderate assistance Adaptive Equipment: Timber Estimator, Sock aide Training and demonstration provided for use and functionality of sock aid, leg insurance agency manager strap and husker operator tool to support independence with LB [...] and prioritizing during ADL performance. Access Code: [email or web address] URL: [email or web address] Putting On Socks with a Sock Aid Putting On and Taking Off Pants Using a Timber Estimator Using a Leg Rotary Drier Adaptive Equipment for Bathing & Showering Understanding Energy Conservation BED MOBILITY Level of [place] Physical/Non- physical Assist Adaptive Equipment Utilized Supine to Sit Modified [place] Bed rails TRANSFERS Level of [place] Physical/Non- physical Assist Adaptive Equipment Utilized Sit [...] AM. * Progress Notes - Polina [place] Luz - 07/17/2025 10:02 AM EDT PHYSICAL [...] admission Level of Mobility Ambulatory- community Mobility [place] Independent gait without device History of Falls [...] unaware when pt may be discharged from [facility]. Nursing Admin (if applicable) Not Applicable OBJECTIVE & INTERVENTIONS [...] pt's true mobility BED MOBILITY Level of [place] Physical/Non- physical Assist Adaptive Equipment Utilized Rolling/ Turning Scooting/ Bridging Supine to Sit Modified [place] Bed rails Sit to Supine Interventions TRANSFERS Level of [place] Physical/Non- physical Assist Adaptive Equipment Utilized Sit to Stand Stand-by assist Supervision Rollator Stand to sit Stand-by assist Supervision Rollator Bed to Chair Toilet Transfer Shower Transfer Interventions BALANCE Postural Appearance Posture: Forward head, Rounded shoulders Level of [place] Balance Support Interventions Static Sit Standby assist Feet supported Dynamic Sit Contact guard Feet supported Dynamic Sitting-Balance: Lateral weight shifts, Anterior/Posterior weight shifts Static Stand Contact guard Right upper extremity support, Left upper extremity support Standing in room prior to ambulation Dynamic Stand Contact guard Right upper extremity support, Left upper extremity support 3 bouts of approx 1 min each AMBULATION Level of [place] Distance Adaptive Equipment Utilized Ambulation Contact guard [...] Pain and Promote Comfort Flowsheets (Taken 07/16/2025 0129) Pain Management Interventions: (care plan) pillow support [...] Ongoing, Progressing Intervention: Promote Activity and Functional [place] Flowsheets Taken 07/16/2025 0635 by Yessenia Ramirez [...] promoted Taken 07/14/2025 1800 by Josi Ann landscape specialist/Support System Care: support provided Goal: Optimal Functional Ability Outcome: Ongoing, Progressing Intervention: Optimize Functional Ability Flowsheets Taken 07/17/2025 0450 by Eulalia Estrada [...] Infection Flowsheets (Taken 07/16/2025 012 by Eulalia Estrada [...] RN Isolation Precautions: precautions maintained Taken 07/16/2025 0129 by Eulalia Estrada RN Fever Reduction/Comfort Measures: [...] encouraged Taken 07/14/2025 1800 by Josi Ann, sap abap developer Review/Management: medications reviewed Intervention: Promote Injury-Free Environment Flowsheets (Taken 07/16/2025 1700 by Diego Munroe) Safety Promotion/Fall Prevention: safety round/check completed nonskid shoes/slippers when out of bed mobility aid in reach room organization consistent clutter-free environment maintained assistive device/personal items within reach Problem: Self-Care Deficit Goal: Improved Ability to Complete Activities of Daily Living Outcome: Ongoing, Progressing Intervention: Promote Activity and Functional [place] Flowsheets Taken 07/16/2025 0635 by Yessenia Ramirez [...] promoted Taken 07/14/2025 1800 by Josi Ann landscape specialist/Support System Care: support provided Goal: Optimal Functional [...] Plan of Care Reviewed With: patient 07/16/2025 180 by Isha Colunga RN Outcome: Ongoing, Progressing Flowsheets (Taken 07/16/2025128 by Eulalia Estrada RN) Progress: improving Plan of Care Reviewed With: patient Goal: Patient-Specific Goal (Individualized) 07/16/20251809 by Isha Colunga RN Flowsheets (Taken 07/16/2025899 by Denia Boo RN) Patient/Family-Specific Goals (Include Timeframe): patient will be able to report a pain less than 5 for the entire shift Individualized Care Needs: pain management Anxieties, Fears or Concerns: pain 07/16/20251807 by Isha Colunga RN Outcome: Ongoing, Progressing Flowsheets (Taken 07/16/2025899 by Denia Boo RN) Patient/Family-Specific Goals (Include Timeframe): patient will be able to report a pain less than 5 for the entire shift Individualized Care Needs: pain management Anxieties, Fears or Concerns: pain Goal: Absence of Hospital-Acquired Illness or Injury Outcome: Ongoing, Progressing Intervention: Identify and Manage Fall Risk 07/16/20251809 by Isha Colunga RN Flowsheets (Taken 07/16/20251699 by Diego Munroe) Safety Promotion/Fall Prevention: safety round/check completed nonskid shoes/slippers when out of bed mobility aid in reach room organization consistent clutter-free environment maintained assistive device/personal items within reach 07/16/20251807 by Isha Colunga RN Flowsheets (Taken 07/16/20251699 by Diego Munroe) Safety Promotion/Fall Prevention: safety [...] (Taken 07/16/2025 0129 by Eulalia Estrada RN) Pain Management Interventions: [...] Ongoing, Progressing Intervention: Optimize Skin Protection 07/16/2025 181 by Isha Colunga RN Flowsheets [...] Flowsheets Taken 07/16/2025 0900 by Denia Boo NAHID Isolation Precautions: precautions maintained Taken 07/15/2025 132 by Sophia Salazar, RN Infection Management: aseptic technique maintained 07/16/2025 1808 by Isha Colunga RN Flowsheets (Taken 07/15/2025 132 by Sophia Salazar, RN) Infection Management: aseptic [...] Ongoing, Progressing Intervention: Promote Activity and Functional [place] Flowsheets (Taken 07/16/2025 0129 by Eulalia Estrada, NAHID) Self-Care Promotion: independence encouraged BADL personal objects within reach BADL personal routines maintained adaptive equipment use encouraged Problem: Wound Goal: Optimal Coping Outcome: Ongoing, Progressing Intervention: Support Patient and Family Response Flowsheets (Taken 07/16/2025 012 by Eulalia Estrada, NAHID) Supportive Measures: active listening utilized verbalization of [...] Prevent or Manage Pain Flowsheets Taken 07/16/2025 1809 by Isha Colunga RN Sleep/Rest Enhancement: regular sleep/rest pattern promoted Taken 07/16/2025 0129 by Eulalia Estrada RN Pain Management Interventions: [...] 3:01 PM EDT SW received call from Police And Fire Dispatcher offering assistance for d/c planning. Her Callback #[phone] * Progress Notes - Sherrill Villa APRN [...] (H) 07/14/2025 I reviewed bg tracing in [facility] glucose timeline 07/16/25 ASSESSMENT Hospital Course: Cristina Brown is a 50 y.o. female with hx of type 2 DM, morbid obesity, hidradenitis supparativa, current smoker (1.5 ppd), hx of absent seizures, UTI, depression, anxiety, asthma, HLD, celiac disease who [facility] as transfer with concern for [...] to establish care with endocrine provider in [place], [place]. --> Provided patient with address and number of clinic. [[facility] Endocrinology Clinic in the [facility] Physician Building]. -Tentative discharge recommendations: Likely [...] team via secure chat orpage us at [phone] during 7a-7p, Tuesday-Tuesday. For after hours please [...] Associated Problem(s): DM (diabetes mellitus) (CMS/[facility]) - Patient presenting with significant hyperglycemia, [...] night Postoperative pain Present on Admission: Unknown [facility] Non-Hospital Problems Carpal tunnel syndrome Dehydration [...] Care Review Outcome: Ongoing, Progressing Flowsheets (Taken 07/16/2025128) Progress: improving Plan of Care Reviewed With: [...] Ongoing, Progressing Intervention: Promote Activity and Functional [place] Flowsheets (Taken 07/16/2025128) Self-Care Promotion: independence encouraged [...] Progressing Flowsheets Taken 07/14/2025 2311 by Rita Alejandro, NAHID Progress: improving Taken 07/14/2025 1813 by Josi Ann RN Plan of Care [...] Activity Management: ambulated to bathroom Taken 07/15/2025 132 by Sophia Salazar RN Pressure Reduction Devices: [...] Intervention: Prevent or Manage Infection Flowsheets Taken 07/15/20251324 by Sophia Salazar RN Infection [...] Ongoing, Progressing Intervention: Promote Activity and Functional [place] Flowsheets Taken 07/15/2025 1745 by Denia Boo RN Activity Assistance Provided: assistance, stand-by Taken 07/14/2025 231 by Rita Alejandro RN Adaptive Equipment Use: [...] Note Cristina Brown 50 y.o. female CSN: [id number] Room/Bed 123/123A Nutrition evaluation type: follow-up Reason for evaluation: Hospital course: 50 y o F transferred from [facility] with concern for necrotizing fasciitis; OR 07/08 for excisional debridement of RLE, groin, pubis, and abdominal wall of skin, subcutaneous tissue, and muscle fascia, [id number]. Septic shock secondary to NSTI. Intubated & [...] Supplemental oxygen O2 Delivery Method: Nasal cannula Heron Coma Scale Score: 15 Julián Scale Score: [...] Estimated Needs: Kcal: 25-27 kcal/kg adj bw (8781-6015 kcal/d) Protein: 1.5-1.7 g/kg adj bw (143-162 [...] Note Cristina Brown 50 y.o. female CSN: [id number] Admission: 07/08/2025 5:58 PM Primary Problem: Necrotizing fasciitis (CMS/HCC) Freelance Digital Project Manager reviewed chart and spoke with patient to complete this Initial Case Management Assessment. PCP: Yenny Dhillon APRN Emergency Contact: Extended Emergency Contact Information Primary Emergency Contact: JayaYecenia Mobile Relation: Sister Preferred language: Czech Nursing Admin needed? No Secondary Emergency Contact: Arnoldo Raymond [address]: [address] [place] [address] of [place] Mobile Relation: Significant Other Preferred language: Czech Nursing Admin needed? No Insurance: Primary Visit Coverage Payer Plan Sponsor Code Group Number Group Name [facility] MEDICAID [facility] MEDICAID [place] Primary Visit Coverage Subscriber Subscriber ID Subscriber Name Subscriber SSN Subscriber Address [id number] CRISTINA BROWN [id number] [place] [address] Patient information: Primary Caregiver: Self Accompanied by/Relationship: Arnoldo Raymond- significant other Support System: Immediate family, Extended family, Friends Daily Living Activities: Functional Status: Minimum assistance Living Arrangements: Family, Friends Type of Residence: Private residence [address] [place] [address] Smoker in the Home?: Yes Current DME: Equipment Currently Used at Home: none Income Information: Income Source: Unemployed Income/Expense Information: Expenses exceed income Current Resources Utilized: Food [place] Housing Circumstances-Z Codes: Housing Circumstances (select all [...] Dialysis Services: N/A Living Will/Advance Directive/Power of Leaf Sucker Operator /Guardian: N/A Additional Comments: Pt gets her medications from [facility] in [place] * Consults - Anupama Braun MBBS [...] HLD, celiac disease who initially came to [facility] on 07/08/2025 as transfer with concern for [...] after discharge close to her home at [place]. She agrees to call and make appointment [...] Endocrinology referral - patient requested to see review scheduling coordinator in [place], [place]. Provided patient with address and number of clinic. [[facility] Endocrinology Clinic in the [facility] Physician Building]. Patient has been on [...] Admitted to ICU for postoperative monitoring. - 09/06: Downgraded to floor On IV Linezolid Daily dressing changes, PRN Dilaudid available. Possibly d/c Linezolid pending wound eval PT/OT eval pending * Assessment & Plan Note - Jason Andre MD - 07/15/2025 7:15 AM EDT Associated Problem(s): DM (diabetes mellitus) ([facility]) - Patient presenting with significant hyperglycemia, [...] Associated Problem(s): Chronic obstructive pulmonary disease, unspecified ([facility]) Complicates care. Continue Albuterol and DuoNebs. [...] night * Assessment & Plan Note - Jsaon Andre MD - 07/15/2025 7:15 AM EDT [...] night Postoperative pain Present on Admission: Unknown [facility] Non-Hospital Problems Carpal tunnel syndrome Dehydration [...] Ongoing, Progressing Intervention: Promote Activity and Functional [place] Flowsheets Taken 07/14/20252310 by Rita Alejandro RN Adaptive Equipment Use: long-handled shoe horn Taken 07/14/2025 1800 by Josi Ann, RN Activity Assistance Provided: assistance, 2 people Self-Care Promotion: independence encouraged Problem: Wound Goal: Optimal Coping Outcome: Ongoing, Progressing Intervention: Support Patient and Family Response Flowsheets (Taken 07/14/2025 1800 by Josi Ann RN) Supportive Measures: active [...] Ongoing, Progressing Intervention: Promote Activity and Functional [place] Flowsheets (Taken 07/14/2025 1800) Activity Assistance Provided: [...] PM EDT Operative Note Date: 07/14/25 Location: [facility] Name: Cristina Brown, : 1975, Diagnoses: Pre-op Diagnosis Necrotizing fasciitis (CMS/HCC) Post-op Diagnosis Necrotizing fasciitis (CMS/HCC) Procedure(s): Wound irrigation Partial wound closure, total closed 30 cm length Attending Surgeon(s): * Anne Franco - Primary Resident Program Specialist(s): * Janell Cross MD - Resident - [...] (mL) 30 mL 07/14/25 1625 [REMOVED] NG/OG [place] Sump Orog[facility] mouth (Removed) Placement Verification distal tube length 07/10/25 08 Tube Placement Length Marking (cm) 60 07/10/25 08 Site Assessment Clean;Dry;Intact 07/10/25 08 Surrounding Skin Dry;Intact 07/10/25 08 Secured by Tape 07/10/25 08 Secured Location ETT 07/10/25 08 NG/OG Status Clamped;Medication administration only 07/10/25 08 Drainage Appearance Bile 07/09/25 08 NG/OG Interventions Clamped;Irrigated;Medication administration only 07/10/25 08 Irrigant Tap water 07/10/25 08 Tube Feeding Frequency Other (Comment) 07/10/25 0400 Tube Feeding Rate (mL/hr) 0 mL/hr 07/10/25 0400 Tube Feeding Peptamen Intense VHP 07/10/25 0400 Tube Feeding Method Continuous per pump 07/09/25 2000 Tube Feeding Bag Changed Yes 07/09/25 1205 Free water/flush (mL) 60 mL 07/10/25 0800 Intake (mL) 49 mL 07/10/25 0000 [REMOVED] NG/OG [place] Sump 14 Fr Left nostril (Removed) Placement [...] portions of the procedure(s) and immediately available [facility] the entire duration. See resident [...] Associated Problem(s): Chronic obstructive pulmonary disease, unspecified ([facility]) Complicates care. Continue Albuterol and DuoNebs. [...] Morbid (severe) obesity due to excess calories ([facility]/HCC) Complicates all aspect of care * Assessment & Plan Note - Jason Andre MD - 07/14/2025 7:31 AM EDT Associated Problem(s): Urge incontinence Patient currently with a montalvo catheter. Remove when able. * Assessment & Plan Note - Jason Andre MD - 07/14/2025 7:31 AM EDT Associated Problem(s): Absence seizure ([facility]) - On Lamictal 50mg BID at home. [...] 7:31 AM EDT Associated Problem(s): Septic shock ([facility]/HCC) Septic shock secondary to necrotizing fascitis. Required [...] 0659 07/13/25 07 - 07/13/25 1859 07/13/25 1900 [...] night Postoperative pain Present on Admission: Unknown [facility] Non-Hospital Problems Carpal tunnel syndrome Dehydration [...] clutter-free environment maintained assistive device/personal items within [facility] fall prevention program maintained nonskid shoes/slippers when out of bed room organization consistent safety round/check completed toileting scheduled Problem: Skin Injury Risk Increased Goal: Skin Health and Integrity Outcome: Ongoing, Progressing Intervention: Promote and Optimize Oral Intake Flowsheets Taken 07/13/20251826 by Leatha Watkins, RN Oral Nutrition Promotion: rest periods promoted Taken 07/12/2025 1336 by Jeana Bear Nutrition Interventions: diet adjusted Problem: Fall Injury Risk Goal: Absence of Fall and Fall-Related Injury Outcome: Ongoing, Progressing Intervention: Promote Injury-Free Environment Flowsheets (Taken 07/13/20251999) Safety Promotion/Fall Prevention: activity supervised clutter-free environment maintained assistive device/personal items within [facility] fall prevention program maintained nonskid shoes/slippers [...] 30-45 degrees Taken 07/09/2025 224 by Cheyanne Briceño, NAHID Pressure Reduction Devices: alternating pressure pump (MARLA) positioning supports utilized foam padding utilized specialty bed utilized Taken 07/09/2025 1447 by Jeana Bear Pressure Reduction Techniques: heels elevated off bed weight shift assistance provided Goal: Optimal Wound Healing Outcome: Ongoing, Progressing Intervention: Promote Wound Healing Flowsheets (Taken 07/13/20251826 by Leatha Watkins, RN) Sleep/Rest Enhancement: awakenings minimized * Care [...] Ongoing, Progressing Intervention: Promote Activity and Functional [place] Flowsheets (Taken 07/13/20251826) Activity Assistance Provided: assistance, [...] Note Cristina Brown 50 y.o. female CSN: [id number] Admission: 07/08/2025 5:58 PM Primary Problem: Necrotizing fasciitis (CMS/HCC) Freelance Digital Project Manager reviewed chart and spoke with Cristina to complete this Initial Case Management Assessment. PCP: Yenny Dhillon APRN Emergency Contact: Extended Emergency Contact Information Primary Emergency Contact: [place]enia [place] Mobile Relation: Sister Preferred language: Czech Nursing Admin needed? No Secondary Emergency Contact: Arnoldo Raymond Address: [address] [place] [address] Mobile Relation: Significant Other Preferred language: Czech Nursing Admin needed? No Insurance: Primary Visit Coverage Payer Plan Sponsor Code Group Number Group Name [employer] MED[employer]ID [employer] [place] Primary Visit Coverage Subscriber Subscriber ID Subscriber Name Subscriber N Subscriber Address [id number] CRISTINA BROWN [id number] [place] [address] Patient information: Primary Caregiver: Self Accompanied by/Relationship: Arnoldo Raymond- significant other Support System: Immediate family Daily Living Activities: Functional Status: Independent Living Arrangements: Spouse/Significant other Type of Residence: Private residence [address] [place] [address] Current DME: Equipment Currently Used at Home: none Income Information: Housing Circumstances-Z Codes: Patient Referred to: Anticipated Discharge Date: unknown Patient's Discharge Goal: Referrals sent for Acute Rehab Assistance Available at Discharge: Arnoldo Raymond Discharge Transport: Arnoldo Raymond Follow Up Transport: Arnoldo raymond Home Health / Home Infusion / Outpatient Dialysis Services: none Living Will/Advance Directive/Power of Leaf Sucker Operator /Guardian: Additional Comments: AMIRA discussed acute rehab placement with Cristina and Arnoldo Raymond. Their first choice is [facility] in [place], [place]. CM sent referrals in [facility]. Cristina will continue inpatient management for necrotizing fascitis in right lower extremity until placement in acute rehab. Kishanicholas has support once discharged from acute rehab at home. Cristina does have concerns if she needs to move and may need resources[facility] Marilee Oliveira, RN * Significant Event - Jatin Miller MD - 07/13/2025 2:50 PM EDT Images from the original note were not included. Emergency General Surgery Interim Note Provider present at [facility] for dressing change and wound evaluation. With [...] PM EDT Associated Problem(s): DM (diabetes mellitus) ([facility]) - Patient presenting with significant hyperglycemia, [...] admitted 07/08/2025 for work-up of Necrotizing fasciitis ([facility]). Problem List Active Hospital Problems Diagnosis Date Noted Postoperative pain 07/13/2025 JOSEP (obstructive sleep apnea) 07/11/2025 HLD (hyperlipidemia) 07/10/2025 Acute respiratory failure 07/09/2025 Septic shock (CMS/HCC) 07/09/2025 Absence seizure (CMS/HCC) 07/09/2025 DM (diabetes mellitus) (CMS/HCC) 07/08/2025 Hidradenitis 07/08/2025 HTN (hypertension), benign 08/31/2023 Urge incontinence 08/31/2023 Smoker 06/09/2023 Depression 06/09/2023 Morbid (severe) obesity due to excess calories (CMS/HCC) 02/15/2022 Chronic obstructive pulmonary disease, unspecified (CMS/HCC) 01/09/2022 Necrotizing fasciitis (CMS/HCC) 07/08/2025 Procedures 07/11/2025 Procedure(s): APPLICATION OR REPLACEMENT, [...] evaluation. Participants in Care Family/Caregiver Present: No Nursing Admin: Not Applicable Presentation Oxygen Therapy: Supplemental oxygen [...] admission Level of Mobility: Ambulatory- community Mobility [place]: Independent gait without device History of Falls: [...] Mobility Bed Mobility Exam: Scooting/Bridging Level of [place]: Contact guard (seated scoot once sitting up on EOB and able to wiggle back into recliner chair) Bed Mobility Exam: Supine to Sit Level of [place]: Moderate assist (50% patient's effort) Physical/Nonphysical Assist: Verbal Cues, Moderate cues, Additional assist utilized for safety, HOBelevated Assistive Device: Other (FINANCIAL SERVICES EDUCATION CONSULTANT x2) Transfers Transfer Interventions: Patient performed sit < > stand x 3 reps total: Mod A from EOB, Min Afrom recliner chair, and CGA from BSC. Transfer Exam: Sit to stand Level of [place]: Minimum assist (75% patient's effort) Physical/Nonphysical Assist: Verbal Cues, Minimal cues Assistive Device: Walker, rolling (andrea) Transfer Exam: Stand to Sit Level of [place]: Minimum assist (75% patient's effort) Physical/Nonphysical Assist: Verbal Cues, Minimal cues Assistive Device: Walker, rolling (andrea) Transfer Exam: Bed to Chair/Chair to Bed Level of [place]: Minimum assist (75% patient's effort) Physical/Nonphysical Assist: Verbal Cues, Minimal cues, Additional assist utilized for safety Type of Transfer: Sidesteps (bed > chair < > BSC) Assistive Device: Walker, rolling (andrea) Toilet Transfer Level of [place]: Minimum assist (75% patient's effort) Physical/Nonphysical Assist: [...] to allow bedside care to take placed (DAY HABILITATION SUPERVISOR entering to take vitals; RN enforcing bandages [...] further toileting ADL needs. Standardized Assessments [facility] 6-Click Daily Activities Help from Other: Don/Doff Regular Lower Body Clothings: A lot Help From Other: Bathing: A lot Help From Other: Toileting: A lot Help From Other: Don/Doff Upper Body Clothings: Little Help From Other: Grooming: None Help From Other: Eating Meals: None [facility] 6 Click - Daily Activities Score: [...] admitted 07/08/2025 for work-up of Necrotizing fasciitis ([facility]). Problem List Active Hospital Problems Diagnosis Date Noted Postoperative pain 07/13/2025 JOSEP (obstructive sleep apnea) 07/11/2025 HLD (hyperlipidemia) 07/10/2025 Acute respiratory failure 07/09/2025 Septic shock (CMS/[facility]) 07/09/2025 Absence seizure ([facility]) 07/09/2025 DM (diabetes mellitus) (CMS/[facility]) 07/08/2025 Hidradenitis 07/08/2025 HTN (hypertension), benign 08/31/2023 Urge incontinence 08/31/2023 Smoker 06/09/2023 Depression 06/09/2023 Morbid (severe) obesity due to excess calories ([facility]) 02/15/2022 Chronic obstructive pulmonary disease, unspecified ([facility]) 01/09/2022 Necrotizing fasciitis (CMS/HCC) 07/08/2025 Procedures 07/11/2025 Procedure(s): APPLICATION OR REPLACEMENT, WOUND VAC Past Medical History Patient has a past medical history of Anxiety, Asthma, Carpal tunnel syndrome, Depression, Diabetes([facility]), H/O absence seizures, Hidradenitis, High cholesterol, [...] move. Participants in Care Family/Caregiver Present: No Nursing Admin: Not Applicable Presentation Oxygen Therapy: Supplemental oxygen [...] details. Home Living/Set-up Lives With: Significant other (fiance [...] admission Level of Mobility: Ambulatory- community Mobility [place]: Independent gait without device History of Falls: [...] Mobility Bed Mobility Exam: Scooting/Bridging Level of [place]: Contact guard (seated scoot once sitting up on EOB and able to wiggle back into recliner chair) Bed Mobility Exam: Supine to Sit Level of [place]: Moderate assist (50% patient's effort) Physical/Nonphysical Assist: Verbal Cues, Moderate cues, Additional assist utilized for safety, HOBelevated Assistive Device: Other (FINANCIAL SERVICES EDUCATION CONSULTANT x 2) Transfers Transfer Interventions: Patient performed sit < > stand x 3 reps total: Mod A from EOB, Min Afrom recliner chair, and CGA from BSC. Cues for safe hand placement during transitions using RW. Transfer Exam: Sit to stand Level of [place]: Minimum assist (75% patient's effort) Physical/Nonphysical Assist: Verbal Cues, Minimal cues Assistive Device: Walker, rolling (andrea) Transfer Exam: Stand to Sit Level of [place]: Minimum assist (75% patient's effort) Physical/Nonphysical Assist: Verbal Cues, Minimal cues Assistive Device: Walker, rolling (andrea) Transfer Exam: Bed to Chair/Chair to Bed Level of [place]: Minimum assist (75% patient's effort) Physical/Nonphysical Assist: Verbal Cues, Minimal cues, Additional assist utilized for safety Type of Transfer: Sidesteps (bed > chair < > BSC) Assistive Device: Walker, rolling (andrea) Toilet Transfer Level of [place]: Minimum assist (75% patient's effort) Physical/Nonphysical Assist: [...] assistance Standardized Assessments Standardized Assessments Standardized Assessments: [facility] 6-Clicks Mobility Assessment [facility] 6-Clicks Mobility Assessment Difficulty patient has [...] climbing 3-5 steps with a railing?: Unable [facility] 6-Clicks Mobility Assessment Total : 15 [...] at 12:37 PM. * Hospital Course - Dajuan Becky Brewster APRN - 07/13/2025 10:42 AM EDT Cristina Brown is a 50 y.o. female with PMH of DM, hidradenitis supparativa, current smoker (1.5ppd), hx of absent seizures, UTI, depression, anxiety, asthma, HLD, celiac disease, presenting to [facility] on 07/08/2025 as transfer with concern for [...] stay, and so will be discharged to [facility]. * Assessment & Plan Note - Jatin [...] night Postoperative pain Present on Admission: Unknown [facility] Non-Hospital Problems Carpal tunnel syndrome Dehydration [...] Progressing Flowsheets Taken 07/13/2025 0013 by Rita Alejandro, RN Progress: improving Taken 07/12/2025 0340 by [...] Intervention: Provide Person-Centered Care Flowsheets (Taken 07/12/2025 133 by Jeana Bear) Trust Relationship/Rapport: care explained choices provided emotional support provided empathic listening provided questions answered questions encouraged reassurance provided thoughts/feelings acknowledged Problem: Skin Injury Risk Increased Goal: Skin Health and Integrity Outcome: Ongoing, Progressing Intervention: Promote and Optimize Oral Intake Flowsheets (Taken 07/12/20251335 by Jeana Bear) Nutrition Interventions: diet adjusted [...] Airway None O2 Delivery Method: Nasal cannula MA SUP: 10 cm H20 Insp Time (sec): 1 sec FiO2 (%): 40 % S RR: 20 MA SUP: 10 cm H20 Output by Drain (mL) 07/10/25 07 - 07/10/25 1859 07/10/25 190 - 07/11/25 0659 07/11/25 07 - 07/11/25 1859 07/11/25 190 - 07/12/25 0659 07/12/25 0700 - 07/12/25 1403 Requested LDAs do not [...] - Improving, continue to monitor Septic shock ([facility]/HCC) Yes Overview Addendum 07/12/2025 1:55 PM by [...] saw and evaluated the patient with the medical/SUBJECT SCIENTIFIC RESEARCH/PA student. I discussed the case with the medical/SUBJECT SCIENTIFIC RESEARCH/PA student and agree with the findings and [...] PM EDT Operative Note Date: 07/11/25 Location: [facility] Name: Cristina Brown, : 1975, Diagnoses: Pre-op Diagnosis Necrotizing fasciitis (CMS/HCC) Post-op Diagnosis Necrotizing fasciitis (CMS/HCC) Procedure(s): Right groin/perineum/thigh/abdominal wound exploration and washout Attending Surgeon(s): * Dorcas Hennessy - Primary Resident Program Specialist(s): * Janell Cross MD - Resident - [...] Note Cristina Brown 50 y.o. female CSN: [id number] Room/Bed 133/133A Nutrition evaluation type: follow-up Reason for evaluation: Hospital course: 50 y o F transferred from OSH with concern for necrotizing fasciitis; OR 07/08 for excisional debridement of RLE, groin, pubis, and abdominal wall of skin, subcutaneous tissue, and muscle fascia, [id number]. Septic shock secondary to NSTI. Intubated & [...] Estimated Needs: Kcal: 25-27 kcal/kg adj bw (5501-4871 kcal/d) Protein: 1.5-1.7 g/kg adj bw (143-162 [...] -will monitor NPO duration -po per MD/ HALL CLEANER -when po diet appropriate, rec CC3, Gluten [...] 0.5-30 Units/hr, Last Rate: 1.15 Units/hr (07/11/25 0829) norepinephrine, 0-0.4 mcg/kg/min, Last Rate: 0.04 mcg/kg/min (07/11/25 0700) vasopressin, 0.03 Units/min, Last Rate: 0.03 Units/min [...] Vent Status (ETT, Trach Only): In use MA SUP: 5 cm H20 Insp Time (sec): 1.5 sec Vent Mode: PS FiO2 (%): 60 % S RR: 14 MA SUP: 5 cm H20 MAP (cm H2O): 9 Output by Drain (mL) 07/09/25 07 - 07/09/25 18507/09/251899 - 07/10/25 0659 07/10/25 07 - 07/10/25 1859 07/10/25 190 - 07/11/25 0659 07/11/25 07 - [...] 07/11/2025 9:31 AM by Gabriel Segovia - Alond[facility] care. - Counseling when appropriate. Smoker (Chronic) [...] Review Outcome: Ongoing, Progressing Flowsheets Taken 07/11/2025 011 by Cheyanne Briceño RN Progress: improving Taken 07/10/2025 1717 by Isha Cueto RN Plan of Care Reviewed With: patient Goal: Patient-Specific Goal (Individualized) Outcome: Ongoing, Progressing Flowsheets (Taken 07/11/2025 011) Patient/Family-Specific Goals (Include Timeframe): PT pain score [...] communication Taken 07/09/2025 1447 by Jeana Bear Trust Relationship/Rapport: care explained choices provided emotional support provided empathic listening provided thoughts/feelings acknowledged reassurance provided questions encouraged questions answered Problem: Skin Injury Risk Increased Goal: Skin Health and Integrity Outcome: Ongoing, Progressing Intervention: Optimize Skin Protection Flowsheets Taken 07/11/2025 0030 by Cheyanne Briceño RN Skin Protection: incontinence pads utilized Taken 07/11/2025 0000 by Cheyanne Briceño, RN Activity Management: activity [...] Intervention: Promote Injury-Free Environment Flowsheets (Taken 07/11/2025 011) Safety Promotion/Fall Prevention: activity supervised * Anesthesia [...] - 07/10/2025 5:52 PM EDT Patient: Cristina Bronw Anesthesia Type: general Vitals Value Taken Time [...] PM EDT Operative Note Date: 07/10/25 Location: [facility] Name: Cristina Brown, : 1975, Diagnoses: Pre-op Diagnosis Necrotizing fasciitis (CMS/HCC) Post-op Diagnosis Necrotizing fasciitis (CMS/HCC) Procedure(s): Right groin/perineum/thigh/abdominal wound exploration, debridement, and washout Attending Surgeon(s): * Dorcas Hennessy - Primary Resident Program Specialist(s): * Shelby Whittington MD - Resident - [...] 2342 Estimated Blood Loss: Minimal Drains: NG/OG [place] Sump 14 Fr Left nostril (Active) Placement Verification distal tube length;X-ray 07/10/251199 Tube Placement Length Marking (cm) 60 07/10/25 1200 Site Assessment Clean;Dry;Intact 07/10/25 1200 Surrounding Skin Dry;Intact 07/10/25 1200 Secured by Tape 07/10/251199 Secured Location Left Nostril 07/10/25 1200 NG/OG Status Clamped 07/10/25 1200 NG/OG Interventions Skin assessed;Air injected into blue air vent port;Clamped 07/10/25 1200 Tape Change/Repostion Date 07/10/25 07/10/25 1200 Tape Change/Repostion Time 1130 07/10/251199 Urethral Catheter Temperature probe 16 Fr. (Active) [...] Findings: All viable tissue. Wound measuring approximately [id number]. Packed with 5 kerlix tied together. Indications: Cristina Brown is an 50 y.o. female who is having surgery for Necrotizing fasciitis ([facility]/HCC). Patient presented in septic shock secondary to [...] Edited by: Lidia Ellis MD at 07/10/2025 0639 Relevant review of systems was obtained [...] Vent Status (ETT, Trach Only): In use MA SUP: 5 cm H20 Insp Time (sec): 1.5 sec Vent Mode: PS FiO2 (%): 50 % S RR: 14 MA SUP: 5 cm H20 MAP (cm H2O): 9 Output by Drain (mL) 07/08/25 0700 - 07/08/25 1859 07/08/25 1900 - 07/09/25 0659 07/09/25 07 - 07/09/25 1859 07/09/25 1900 - 07/10/25 [...] Morbid (severe) obesity due to excess calories ([facility]) Yes Overview Addendum 07/09/2025 4:07 PM by Lidia Ellis MD Complicates care. Smoker Yes Overview Signed 07/09/2025 3:05 PM by Lidia Ellis MD - Patient smokes 0.5-1ppd. - Smoking cessation when appropriate. Urge incontinence Yes DM (diabetes mellitus) ([facility]) Yes Overview Addendum 07/09/2025 4:11 PM by Lidia Ellis MD - Patient hyperglycemic, up to 300s. - Insulin drip per protocol. Hidradenitis Yes Absence seizure ([facility]) (Chronic) Yes Overview Addendum 07/10/2025 4:52 PM by Lidia Ellis MD On Lamictal 50mg BID. Acute respiratory failure Yes Overview Signed 07/09/2025 3:57 PM by Lidia Ellis MD - Patient presenting in septic shock due to RLE necrotizing fasciitis. - Requiring ventilator for respiratory support. Wean as tolerated. Septic shock ([facility]) Yes Overview Addendum 07/10/2025 4:53 PM [...] for outside parameter Switch to plov from [facility] Started Vaso and gave 1L this AM [...] Protection: absorbent pad utilized/changed positioning supports utilized [id number] areas padded [id number]-sb-[id number] areas padded Problem: Skin Injury Risk Increased [...] probe site changed incontinence pads utilized Taken 07/09/2025 2200 Range of Motion: active ROM (range of motion) encouraged * Care Plan - Jeana Bear - 07/09/2025 2:49 PM EDT Problem: Adult Inpatient Plan of Care Goal: Optimal Comfort and Wellbeing Outcome: Ongoing, Progressing Intervention: Provide Person-Centered Care Flowsheets (Taken 07/09/20257) Trust Relationship/Rapport: care explained choices provided emotional [...] NUTRITION SERVICES Adult Nutrition Evaluation Note Cristina Luz AnayaKevin 50 y.o. female CSN: [id number] Room/Bed 133/133A Nutrition evaluation type: assessment Reason for evaluation: provider consult Hospital course: 50 y o F transferred from OSH with concern for necrotizing fasciitis; OR 07/08 for excisional debridement of RLE, groin, pubis, and abdominal wall of skin, subcutaneous tissue, and muscle fascia, [id number]. Septic shock secondary to NSTI. Intubated & [...] oz) Estimated Needs: Kcal: 22-25 kcal/kg IBW (7068-3814 kcal/d) Protein: 2-2.5 g/kg IBW (136-171 g/d) [...] decreased. Palpations: Abdomen is soft. Skin: Comments: [id number] open wound with no extension of cellulitis. [...] PEEP (cmH2O): 18 S VT: 450 mL MA SUP: 10 cm H20 Insp Time (sec): 0.8 sec Vent Mode: PS FiO2 (%): 50 % S RR: 22 S VT: 450 mL MA SUP: 10 cm H20 MAP (cm H2O): 10 Output by Drain (mL) 07/07/25 0700 - 07/07/25 1859 07/07/25 1900 - 07/08/25 0659 07/08/25 07 - 07/08/25 1859 07/08/25 1900 - 07/09/25 [...] Morbid (severe) obesity due to excess calories ([facility]/HCC) Yes Overview Addendum 07/09/2025 4:07 PM by Lidia Ellis MD Complicates care. Smoker Yes Overview Signed 07/09/2025 3:05 PM by Lidia Ellis MD - Patient smokes 0.5-1ppd. - Smoking cessation when appropriate. Urge incontinence Yes DM (diabetes mellitus) ([facility]/HCC) Yes Overview Addendum 07/09/2025 4:11 PM by Lidia Ellis MD - Patient hyperglycemic, up to 300s. - Insulin drip per protocol. Hidradenitis Yes Absence seizure ([facility]) (Chronic) Yes Overview Addendum 07/09/2025 4:08 [...] PM EDT Operative Note Date: 07/08/25 Location: [facility] Name: Cristina Brown, : 1975, Diagnoses: Pre-op Diagnosis Necrotizing fasciitis (CMS/HCC) Post-op Diagnosis Necrotizing fasciitis (CMS/HCC) Procedure(s): Excisional debridement of right thigh, groin pubis and abdominal wall including skin, subcutaneous tissue and fascia measuring 65 x 20 x 2cm Attending Surgeon(s): * Luanne Crawford - Primary Resident Program Specialist(s): * Kristy Fields MD - Resident - [...] fasciitis (CMS/HCC). Patient presented as transfer from [facility] with right inner thigh wound which has [...] 07/08/2025 9:01 PM EDT Date: 07/09/25 Location: [facility] Name: Cristina Brown, : 1975, Diagnoses: Pre-op Diagnosis Necrotizing fasciitis (CMS/HCC) Post-op Diagnosis Necrotizing fasciitis (CMS/HCC) Procedure(s): Excisional debridement of right lower extremity, groin, pubis, and abdominal wall of skin, subcutaneous tissue, and muscle fascia, 65x20 cm Attending Surgeon(s): * Luanne Crawford - Primary Resident Program Specialist(s): * Kristy Fields MD - Resident - [...] anxiety, asthma, HLD, celiac disease, presenting to [facility] on 07/08/2025 as transfer with concern for [...] Morbid (severe) obesity due to excess calories ([facility]/HCC) Overview Signed 08/31/2023 9:36 AM by Janell Bueno Assessment & Plan: Condition: stable Co-morbidities: Type [...] mL IVPB (vial adapter required) 2 g [id number] Deepthi Garcia MD linezolid (Zyvox) injection 600 [...] ppd), asthma, HLD, celiac disease, presenting to [facility] on 07/08/2025 as transfer with concern for [...] Resp BP 07/08/25 1804 07/08/25 1804 07/08/25 18007/08/25 1820 37 ??C (98.6 ??F) 99 [...] 07/08/20251955 Date/Time Order Dose Route Action 07/08/2025 181 EDT norepinephrine 8 mg/250 mL (0.032 mg/mL) infusion 0.04 mcg/kg/min Intravenous New Bag 07/08/2025 1820 EDT linezolid (Zyvox) injection 600 mg 600 mg Intravenous New Bag 07/08/2025 1907 EDT linezolid (Zyvox) injection 600 mg 0 [...] 4% (Hibiclens). Acknowledged AMINA RAMIREZ 07/08/251916 Void rehabilitation supervisor to OR Once Acknowledged MARGARETTE AMINA 07/08/251916 Case Request Operating Room: IRRIGATION AND DEBRIDEMENT, WOUND Once Completed AMINA RAMIREZ 07/08/25 181 Once Canceled MY CHARLES 07/08/25 1816 Once Canceled DEEPTHI GARCIA 07/08/25 1809 CMP STAT Final result MY CHARLES 07/08/25 180 CBC w/diff STAT Final result MY CHARLES 07/08/25 180 PT-INR STAT Final result MY CHARLES 07/08/25 180 Type and screen Start now Final result MY CHARLES 07/08/25 180 Lactic acid, venous STAT Final result MY CHARLES 07/08/25 1809 C-Reactive protein STAT Final result MY CHARLES 07/08/25 1809 Blood Culture (Aerobic/Anaerobet Set) STAT Acknowledged MY [...] DEEPTHI GARCIA ED Course as of 07/09/25 013TueJul 08, 2025 181 Upon arrival patient was stable with airway [...] 013 Blood cultures ordered and pending [MR] 130 CMP(!) Based on labs, patient with LRINEC score of 13-high risk [MR] ED Course User Index [MR] Deepthi Garcia MD Clinical Impressions as of 07/09/25 013 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) Social [...] None Disposition Admit Admitting/Attending Physician: LUANNE CRAWFORD [[id number]] Provider Care Team: [facility] ICU 1 [159] Are [...] Description 08/20/2025 10:30 AM EDT Office Visit [facility] General Surgery [address] [place] [address] Lilliana Morfin, ROOF SERVICE TECHNICIAN [address] [place] [phone] Scheduled Referrals Name Type Priority Associated Diagnoses Order Schedule Discharge Ambulatory referral to NON Endocrinology Outpatient Referral Routine Morbid (severe) obesity due to excess calories (CMS/[facility]) Type 2 diabetes mellitus with hyperglycemia, without long-term current use of insulin ([facility]) Celiac disease Expected: 07/15/2025 (Approximate), Expires: [...] UNSOLICITED RESULTS Routine 07/11/2025 9:57 AM EDT MA CRITICAL CARE, E/M 30-74 MINUTES Routine 07/11/2025 [...] ECG ADULT STAT 07/10/2025 8:42 AM EDT MA CRITICAL CARE, E/M 30-74 MINUTES Routine 07/10/2025 [...] CO2 MONITORING Routine 07/09/2025 8:00 AM EDT MA CRITICAL CARE, E/M 30-74 MINUTES Routine 07/09/2025 [...] UNSOLICITED RESULTS Routine 07/08/2025 8:51 PM EDT MA DEBRIDEMENT, SKIN, SUB-Q TISSUE,=<20 SQ CM 07/08/2025 [...] PANEL, PLASMA STAT 07/08/2025 6:14 PM EDT MA CRITICAL CARE, E/M 30-74 MINUTES Routine 07/08/2025 [...] 07/19/2025 5:32 PM EDT [facility] Cafeteria Clerk ID Laura Baez 025 5:32 PM EDT [facility] Device ID [id number] 07/19/2025 5:32 PM EDT [facility] Specimen Type POC Capillary 07/19/2025 5:32 PM EDT [facility] Blood Capillary blood specimen / Unknown 07/19/2025 12:27 PM EDT 07/19/2025 5:32 PM EDT us Anne Franco MD LAB POINT OF CARE TEST DOCKED DEVICE UNSOLICITED RESULTS Final Result [facility] [address] [place] [address] * Phosphorus (07/19/2025 4:28 AM EDT) Phosphorus, Plasma 3.6 2.5 - 4.5 mg/dL 07/19/2025 5:03 AM EDT [facility] Blood Venous blood specimen / Unknown Venipuncture / Unknown 07/19/2025 4:28 AM EDT 07/19/2025 4:35 AM EDT Anne Franco MD LAB BLOOD ORDERABLES Sarah l Result Performing Organization Address [facility] Co de Phone Number [facility] [address] [place] [address] * (ABNORMAL) Magnesium (07/19/2025 4:28 AM EDT) Magnesium, Plasma 1.8(L) 1.9 - 2.4 mg/dL 07/19/2025 5:03 AM EDT [facility] Blood Venous blood specimen / Unknown Venipuncture / Unknown 07/19/2025 4:28 AM EDT 07/19/2025 4:35 AM EDT us Anne Franco MD LAB BLOOD ORDERABLES Sarah l Result Performing Organization Address [facility] de Phone Number [facility] [address] [place] [address] * (ABNORMAL) CBC W/O Differential (07/19/2025 4:28 AM EDT) WBC Count 18.39(H) 3.70 - 10.30 10*3/uL LAB HEMATOLOGY METHOD 07/19/2025 4:51 AM EDT [facility] RBC Count 3.50(L) 3.90 - 5.20 10*6/uL LAB HEMATOLOGY METHOD 07/19/2025 4:51 AM EDT [facility] HGB 9.6(L) 11.2 - 15.7 g/dL LAB HEMATOLOGY METHOD 07/19/2025 4:51 AM EDT [facility] HCT 30.7(L) 34.0 - 45.0 % LAB HEMATOLOGY METHOD 07/19/2025 4:51 AM EDT [facility] Platelet Count 627(H) 155 - 369 10*3/uL LAB HEMATOLOGY METHOD 07/19/2025 4:51 AM EDT [facility] MCV 88 79 - 98 fL LAB HEMATOLOGY METHOD 07/19/2025 4:51 AM EDT [facility] MCH 27.4 26.0 - 32.0 pg LAB HEMATOLOGY METHOD 07/19/2025 4:51 AM EDT [facility] MCHC 31.3 30.7 - 35.5 g/dL LAB HEMATOLOGY METHOD 07/19/2025 4:51 AM EDT [facility] RDW 18.2(H) 11.5 - 14.5 % LAB HEMATOLOGY METHOD 07/19/2025 4:51 AM EDT [facility] MPV 10.2 8.8 - 12.5 fL LAB HEMATOLOGY METHOD 07/19/2025 4:51 AM EDT [facility] nRBC 0.1(H) <=0.0 per 100 WBCs LAB HEMATOLOGY METHOD 07/19/2025 4:51 AM EDT [facility] Blood Venous blood specimen / Unknown Venipuncture / Unknown 07/19/2025 4:28 AM EDT 07/19/2025 4:36 AM EDT us Anne Franco MD LAB BLOOD ORDERABLES Sarah bennett Result [facility] [address] [place] [address] * (ABNORMAL) Basic metabolic panel (07/19/2025 4:28 AM EDT) Pathologist [facility] Glucose, Plasma 153(H) 74 - 99 mg/dL 07/19/2025 5:03 AM EDT [facility] BUN, Plasma 14 7 - 21 mg/dL 07/19/2025 5:03 AM EDT [facility] Creatinine, Plasma 0.73 0.60 - 1.10 mg/dL 07/19/2025 5:03 AM EDT [facility] BUN/Creatinine Ratio 19 07/19/2025 5:03 AM EDT [facility] Sodium, Plasma 137 136 - 145 mmol/L 07/19/2025 5:03 AM EDT [facility] Potassium, Plasma 4.3 3.6 - 4.9 mmol/L 07/19/2025 5:03 AM EDT [facility] Chloride, Plasma 97 97 - 107 mmol/L 07/19/2025 5:03 AM EDT [facility] CO2, Plasma 28 22 - 29 mmol/L 07/19/2025 5:03 AM EDT [facility] Anion Gap 12 6 - 16 mmol/L 07/19/2025 5:03 AM EDT [facility] Total Calcium, Plasma 9.0 8.9 - 10.2 mg/dL 07/19/2025 5:03 AM EDT [facility] eGFRcr 101.0 mL/min/1.7 3m*2 07/19/2025 5:03 AM EDT [facility] Comment:Reported eGFRcr in m L/min/1.73m2 is based the CKD-EPI 2020 equation that does not use a race coefficient. Blood Venous blood specimen / Unknown Venipuncture / Unknown 07/19/2025 4:28 AM EDT 07/19/2025 4:35 AM EDT us Anne Franco MD LAB BLOOD ORDERABLES Sarah bennett Result [facility] [address] [place] [address] * (ABNORMAL) POCT glucose meter (07/18/2025 8:33 [...] 07/18/2025 8:36 PM EDT [facility] Cafeteria Clerk ID Zach Martinez 8:36 PM EDT [facility] Device ID [id number] 07/18/2025 8:36 PM EDT [facility] Specimen Type POC Capillary 07/18/2025 8:36 PM EDT [facility] Blood Capillary blood specimen / Unknown 07/18/2025 8:33 PM EDT 07/18/2025 8:36 PM EDT Anne Franco MD LAB POINT OF CARE TEST DOCKED DEVICE UNSOLICITED RESULTS Final Result Performing Organization Address City/[facility]/ZIP Co de Phone Number [facility] [address] [place] [address] * (ABNORMAL) POCT glucose meter (07/18/2025 6:07 [...] Comment 07/18/2025 6:08 PM EDT [facility] Cafeteria Clerk ID Monique Jaqcues 6:08 PM EDT [facility] Device ID [id number] 07/18/2025 6:08 PM EDT [facility] Specimen Type POC Capillary 07/18/2025 6:08 PM EDT [facility] Blood Capillary blood specimen / Unknown 07/18/2025 6:07 PM EDT 07/18/2025 6:08 PM EDT Anne Franco MD LAB POINT OF CARE TEST DOCKED DEVICE UNSOLICITED RESULTS Final Result [facility] [address] [place] [address] * (ABNORMAL) POCT glucose meter (07/18/2025 12:36 [...] 07/18/2025 12:38 PM EDT [facility] Cafeteria Clerk ID Laura Baez 025 12:38 PM EDT [facility] Device ID [id number] 07/18/2025 12:38 PM EDT [facility] Specimen Type POC Capillary 07/18/2025 12:38 PM EDT [facility] Blood Capillary blood specimen / Unknown 07/18/2025 12:36 PM EDT 07/18/2025 12:38 PM EDT Anne Franco MD LAB POINT OF CARE TEST DOCKED DEVICE UNSOLICITED RESULTS Final Result Performing Organization Address City/State/[facility] Co de Phone Number [facility] [address] [place] [address] * (ABNORMAL) POCT glucose meter (07/18/2025 8:39 AM EDT) [facility] POCT Glucose 149(H) 74 - 99 mg/dL [...] 07/18/2025 8:41 AM EDT [facility] Cafeteria Clerk ID Laura Baez 025 8:41 AM EDT [facility] Device ID [id number] 07/18/2025 8:41 AM EDT [facility] Specimen Type POC Capillary 07/18/2025 8:41 AM EDT [facility] Blood Capillary blood specimen / Unknown 07/18/2025 8:39 AM EDT 07/18/2025 8:41 AM EDT us Anne Fracno MD LAB POINT OF CARE TEST DOCKED DEVICE UNSOLICITED RESULTS Final Result [facility] [address] [place] [address] * (ABNORMAL) Basic metabolic panel (07/18/2025 6:03 AM EDT) Glucose, Plasma 163(H) 74 - 99 mg/dL 07/18/2025 6:45 AM EDT [facility] BUN, Plasma 11 7 - 21 mg/dL 07/18/2025 6:45 AM EDT [facility] Creatinine, Plasma 0.65 0.60 - 1.10 mg/dL 07/18/2025 6:45 AM EDT [facility] BUN/Creatinine Ratio 17 07/18/2025 6:45 AM EDT [facility] Sodium, Plasma 138 136 - 145 mmol/L 07/18/2025 6:45 AM EDT [facility] Potassium, Plasma 3.8 3.6 - 4.9 mmol/L 07/18/2025 6:45 AM EDT [facility] Chloride, Plasma 99 97 - 107 mmol/L 07/18/2025 6:45 AM EDT [facility] CO2, Plasma 29 22 - 29 mmol/L 07/18/2025 6:45 AM EDT [facility] Anion Gap 10 6 - 16 mmol/L 07/18/2025 6:45 AM EDT [facility] Total Calcium, Plasma 8.5(L) 8.9 - 10.2 mg/dL 07/18/2025 6:45 AM EDT [facility] eGFRcr 108.1 mL/min/1.7 3m*2 07/18/2025 6:45 AM EDT [facility] Comment:Reported eGFRcr in m L/min/1.73m2 is based the CKD-EPI 2020 equation that does not use a race coefficient. Blood Venous blood specimen / Unknown Venipuncture / Unknown 07/18/2025 6:03 AM EDT 07/18/2025 6:12 AM EDT us Anne Franco MD LAB BLOOD ORDERABLES Sarah sabrina Result [facility] [address] [place] [address] * (ABNORMAL) CBC W/O Differential (07/18/2025 6:03 AM EDT) WBC Count 16.76(H) 3.70 - 10.30 10*3/uL LAB HEMATOLOGY METHOD 07/18/2025 6:25 AM EDT [facility] RBC Count 3.25(L) 3.90 - 5.20 10*6/uL LAB HEMATOLOGY METHOD 07/18/2025 6:25 AM EDT [facility] HGB 9.1(L) 11.2 - 15.7 g/dL LAB HEMATOLOGY METHOD 07/18/2025 6:25 AM EDT [facility] HCT 28.8(L) 34.0 - 45.0 % LAB HEMATOLOGY METHOD 07/18/2025 6:25 AM EDT [facility] Platelet Count 523(H) 155 - 369 10*3/uL LAB HEMATOLOGY METHOD 07/18/2025 6:25 AM EDT [facility] MCV 89 79 - 98 fL LAB HEMATOLOGY METHOD 07/18/2025 6:25 AM EDT [facility] MCH 28.0 26.0 - 32.0 pg LAB HEMATOLOGY METHOD 07/18/2025 6:25 AM EDT [facility] MCHC 31.6 30.7 - 35.5 g/dL LAB HEMATOLOGY METHOD 07/18/2025 6:25 AM EDT [facility] RDW 17.6(H) 11.5 - 14.5 % LAB HEMATOLOGY METHOD 07/18/2025 6:25 AM EDT [facility] MPV 10.3 8.8 - 12.5 fL LAB HEMATOLOGY METHOD 07/18/2025 6:25 AM EDT [facility] nRBC 0.0 <=0.0 per 100 WBCs LAB HEMATOLOGY METHOD 07/18/2025 6:25 AM EDT [facility] Blood Venous blood specimen / Unknown Venipuncture / Unknown 07/18/2025 6:03 AM EDT 07/18/2025 6:12 AM EDT us Anne Franco MD LAB BLOOD ORDERABLES Sarah l Result Performing Organization Address City/[facility] Co de Phone Number [facility] [address] [place] [address] * (ABNORMAL) POCT glucose meter (07/17/2025 10:33 [...] Comment 07/17/2025 10:35 PM EDT [facility]ARE [facility] Cafeteria Clerk ID Nipper, 07/17/2025 10:35 PM EDT [facility]ALTH[facility]ARE LAB Device ID [id number] 07/17/2025 10:35 PM EDT [facility]ALTH[facility] LAB Specimen Type POC Capillary 07/17/2025 10:35 PM EDT [facility] Blood Capillary blood specimen / Unknown 07/17/2025 10:33 PM EDT 07/17/2025 10:35 PM EDT us Anne Franco MD LAB POINT OF CARE TEST DOCKED DEVICE UNSOLICITED RESULTS Final Result Performing Organization Address City/[facility] Co de Phone Number [facility] [address] [place] [address] * PERIPHERAL IV (SMARTFORM LINK) (07/17/2025 5:14 PM EDT) Narrative Arturo Mancilla, RN - 07/17/2025 5:14 PM EDT Arturo Mancilla, NAHID 07/17/2025 5:14 PM Insert peripheral IV Performed [...] POCT glucose meter (07/17/2025 5:10 PM EDT) Pathologist [facility] POCT Glucose 115(H) 74 - 99 mg/dL [...] Comment 07/17/2025 5:12 PM EDT HEALTHCARE LAB Cafeteria Clerk ID Monique Jacques 5:12 PM EDT [facility] Device ID [id number] 07/17/2025 5:12 PM EDT [facility] Specimen Type POC Capillary 07/17/2025 5:12 PM EDT [facility] Blood Capillary blood specimen / Unknown 07/17/2025 5:10 PM EDT 07/17/2025 5:12 PM EDT Anne Franco MD LAB POINT OF CARE TEST DOCKED DEVICE UNSOLICITED RESULTS Final Result [facility] [address] [place] [id number] * (ABNORMAL) POCT glucose meter (07/17/2025 12:06 PM EDT) [facility] POCT Glucose 211(H) 74 - 99 mg/dL [...] Comment 07/17/2025 12:07 PM EDT HEALTHCARE LAB Cafeteria Clerk ID Josi Ann 12:07 PM EDT HEALTHCARE LAB Device ID [id number] 07/17/2025 12:07 PM EDT [facility]ALTH[facility]ARE LAB Specimen Type POC Capillary 07/17/2025 12:07 PM EDT [facility] Blood Capillary blood specimen / Unknown 07/17/2025 12:06 PM EDT 07/17/2025 12:07 PM EDT us Anne Franco MD LAB POINT OF CARE TEST DOCKED DEVICE UNSOLICITED RESULTS Final Result Performing Organization Address City/State/[facility] Co de Phone Number HEALTHCARE LAB [address] [place] [address] * US Extremity Limited MSK or Soft [...] Detected Not Detected 07/17/2025 12:11 PM EDT [facility] Swab Both anterior nares / Unknown Non-blood Collection / Unknown 07/17/2025 10:14 AM EDT 07/17/2025 10:33 AM EDT Narrative [facility] - 07/17/2025 12:11 PM EDT [...] MICROBIOLOGY - GENERAL ORDER LUANNE Final Result [facility] [address] [place] [address] * (ABNORMAL) POCT glucose meter (07/17/2025 9:35 AM EDT) POCT Glucose 139(H) 74 - 99 mg/dL 07/17/2025 9:37 AM EDT [facility] Comment:Accuracy of a glucos e result [...] 07/17/2025 9:37 AM EDT [facility] Cafeteria Clerk ID Josi Ann 9:37 AM EDT HEALTHCARE LAB Device ID [id number] 07/17/2025 9:37 AM EDT [facility]ALTH[facility]ARE LAB Specimen Type POC Capillary 07/17/2025 9:37 AM EDT [facility] Blood Capillary blood specimen / Unknown 07/17/2025 9:35 AM EDT 07/17/2025 9:37 AM EDT us Anne Franco MD LAB POINT OF CARE TEST DOCKED DEVICE UNSOLICITED RESULTS Final Result [facility] [address] [place] [id number] * (ABNORMAL) Basic metabolic panel (07/17/2025 5:20 AM EDT) Glucose, Plasma 140(H) 74 - 99 mg/dL 07/17/2025 5:56 AM EDT [facility] BUN, Plasma 8 7 - 21 mg/dL 07/17/2025 5:56 AM EDT [facility] Creatinine, Plasma 0.59(L) 0.60 - 1.10 mg/dL 07/17/2025 5:56 AM EDT [facility] BUN/Creatinine Ratio 14 07/17/2025 5:56 AM EDT [facility] Sodium, Plasma 139 136 - 145 mmol/L 07/17/2025 5:56 AM EDT [facility] Potassium, Plasma 3.8 3.6 - 4.9 mmol/L 07/17/2025 5:56 AM EDT [facility] Chloride, Plasma 97 97 - 107 mmol/L 07/17/2025 5:56 AM EDT [facility] CO2, Plasma 31(H) 22 - 29 mmol/L 07/17/2025 5:56 AM EDT [facility] Anion Gap 11 6 - 16 mmol/L 07/17/2025 5:56 AM EDT [facility] Total Calcium, Plasma 8.6(L) 8.9 - 10.2 mg/dL 07/17/2025 5:56 AM EDT [facility] eGFRcr 110.6 mL/min/1.7 3m*2 07/17/2025 5:56 AM EDT [facility] Comment:Reported eGFRcr in m L/min/1.73m2 is based the CKD-EPI 2020 equation that does not use a race coefficient. Blood Venous blood specimen / Unknown Venipuncture / Unknown 07/17/2025 5:20 AM EDT 07/17/2025 5:27 AM EDT us Anne Franco MD LAB BLOOD ORDERABLES Sarah l Result [facility] [address] [place] [address] * Phosphorus, Plasma (07/17/2025 5:20 AM EDT) Phosphorus, Plasma 3.0 2.5 - 4.5 mg/dL 07/17/2025 5:56 AM EDT [facility] Blood Venous blood specimen / Unknown Venipuncture / Unknown 07/17/2025 5:20 AM EDT 07/17/2025 5:27 AM EDT us Anne Franco MD LAB BLOOD ORDERABLES Sarah l Result Performing Organization Address [facility] Co de Phone Number [facility] [address] [place] [address] * (ABNORMAL) Magnesium, Plasma (07/17/2025 5:20 AM EDT) Magnesium, Plasma 1.8(L) 1.9 - 2.4 mg/dL 07/17/2025 5:56 AM EDT [facility] Blood Venous blood specimen / Unknown Venipuncture / Unknown 07/17/2025 5:20 AM EDT 07/17/2025 5:27 AM EDT us Anne Franco MD LAB BLOOD ORDERABLES Sarah l Result Performing Organization Address City/[facility]/ZIP Co de Phone Number [facility] [address] [place] [address] * (ABNORMAL) CBC W/O Differential (07/17/2025 5:20 AM EDT) [facility] Signature WBC Count 22.29(H) 3.70 - 10.30 10*3/uL LAB HEMATOLOGY METHOD 07/17/2025 5:37 AM EDT [facility] RBC Count 3.36(L) 3.90 - 5.20 10*6/uL LAB HEMATOLOGY METHOD 07/17/2025 5:37 AM EDT [facility] HGB 9.2(L) 11.2 - 15.7 g/dL LAB HEMATOLOGY METHOD 07/17/2025 5:37 AM EDT [facility] HCT 29.4(L) 34.0 - 45.0 % LAB HEMATOLOGY METHOD 07/17/2025 5:37 AM EDT [facility] Platelet Count 484(H) 155 - 369 10*3/uL LAB HEMATOLOGY METHOD 07/17/2025 5:37 AM EDT [facility] MCV 88 79 - 98 fL LAB HEMATOLOGY METHOD 07/17/2025 5:37 AM EDT [facility] MCH 27.4 26.0 - 32.0 pg LAB HEMATOLOGY METHOD 07/17/2025 5:37 AM EDT [facility] MCHC 31.3 30.7 - 35.5 g/dL LAB HEMATOLOGY METHOD 07/17/2025 5:37 AM EDT [facility] RDW 17.3(H) 11.5 - 14.5 % LAB HEMATOLOGY METHOD 07/17/2025 5:37 AM EDT [facility] MPV 10.4 8.8 - 12.5 fL LAB HEMATOLOGY METHOD 07/17/2025 5:37 AM EDT [facility] nRBC 0.1(H) <=0.0 per 100 WBCs LAB HEMATOLOGY METHOD 07/17/2025 5:37 AM EDT [facility] Blood Venous blood specimen / Unknown Venipuncture / Unknown 07/17/2025 5:20 AM EDT 07/17/2025 5:27 AM EDT us Anne Franco MD LAB BLOOD ORDERABLES Sarah sabrina Result [facility] [address] [place] [address] * (ABNORMAL) POCT glucose meter (07/16/2025 8:24 PM EDT) [facility] POCT Glucose 162(H) 74 - 99 mg/dL [...] Comment 07/16/2025 8:26 PM EDT HEALTHCARE LAB Cafeteria Clerk ID Lacie Marcelo 07/16/20 8:26 PM EDT HEALTHCARE LAB Device ID [id number] 07/16/2025 8:26 PM EDT [facility]ALTH[facility]ARE LAB Specimen Type POC Capillary 07/16/2025 8:26 PM EDT [facility] Blood Capillary blood specimen / Unknown 07/16/2025 8:24 PM EDT 07/16/2025 8:26 PM EDT Anne Franco MD LAB POINT OF CARE TEST DOCKED DEVICE UNSOLICITED RESULTS Final Result [facility] [address] [place] [address] * (ABNORMAL) POCT glucose meter (07/16/2025 5:34 PM EDT) [facility] POCT Glucose 190(H) 74 - 99 mg/dL [...] 07/16/2025 5:36 PM EDT [facility] Cafeteria Clerk ID Diego Munroe 07/16/20 5:36 PM EDT [facility] Device ID [id number] 07/16/2025 5:36 PM EDT [facility]ALTH[facility]ARE [facility] Specimen Type POC Capillary 07/16/2025 5:36 PM EDT [facility] Blood Capillary blood specimen / Unknown 07/16/2025 5:34 PM EDT 07/16/2025 5:36 PM EDT Anne Franco MD LAB POINT OF CARE TEST DOCKED DEVICE UNSOLICITED RESULTS Final Result Performing Organization Address City/[facility]/ZIP Co de Phone Number [facility]ARE [facility] [address] [place] [address] * (ABNORMAL) POCT glucose meter (07/16/2025 12:06 PM EDT) [facility] POCT Glucose 150(H) 74 - 99 mg/dL [...] 07/16/2025 12:08 PM EDT [facility] Cafeteria Clerk ID Diego Munroe 07/16/20 12:08 PM EDT [facility] Device ID [id number] 07/16/2025 12:08 PM EDT [facility] Specimen Type POC Capillary 07/16/2025 12:08 PM EDT [facility] Blood Capillary blood specimen / Unknown 07/16/2025 12:06 PM EDT 07/16/2025 12:08 PM EDT Anne Franco MD LAB POINT OF CARE TEST DOCKED DEVICE UNSOLICITED RESULTS Final Result Performing Organization Address City/[facility]/ZIP Co de Phone Number [facility] [address] [place] [address] * XR Chest 1 View (07/16/2025 11:25 [...] Comment 07/16/2025 8:24 AM EDT [facility]ALTHCARE LAB Cafeteria Clerk ID Diego Munroe 07/16/20 8:24 AM EDT [facility]ALTH[facility]ARE LAB Device ID [id number] 07/16/2025 8:24 AM EDT [facility] Specimen Type POC Capillary 07/16/2025 8:24 AM EDT [facility] Blood Capillary blood specimen / Unknown 07/16/2025 8:22 AM EDT 07/16/2025 8:24 AM EDT us Anne Franco MD LAB POINT OF CARE TEST DOCKED DEVICE UNSOLICITED RESULTS Final Result [facility] [address] [place] [address] * Phosphorus (07/16/2025 5:25 AM EDT) Pathologist [facility] Phosphorus, Plasma 2.8 2.5 - 4.5 mg/dL 07/16/2025 7:12 AM EDT [facility] Blood Venous blood specimen / Unknown Venipuncture / Unknown 07/16/2025 5:25 AM EDT 07/16/2025 5:33 AM EDT us Anne Franco MD LAB BLOOD ORDERABLES Sarah l Result [facility] [address] [place] [address] * (ABNORMAL) Magnesium (07/16/2025 5:25 AM EDT) Magnesium, Plasma 1.8(L) 1.9 - 2.4 mg/dL 07/16/2025 7:12 AM EDT [facility] Blood Venous blood specimen / Unknown Venipuncture / Unknown 07/16/2025 5:25 AM EDT 07/16/2025 5:33 AM EDT us Anne Franco MD LAB BLOOD ORDERABLES Sarah bennett Result [facility] [address] [place] [address] * (ABNORMAL) Basic metabolic panel (07/16/2025 5:25 AM EDT) Glucose, Plasma 149(H) 74 - 99 mg/dL 07/16/2025 6:01 AM EDT [facility] BUN, Plasma 9 7 - 21 mg/dL 07/16/2025 6:01 AM EDT [facility] Creatinine, Plasma 0.48(L) 0.60 - 1.10 mg/dL 07/16/2025 6:01 AM EDT [facility] BUN/Creatinine Ratio 19 07/16/2025 6:01 AM EDT [facility] Sodium, Plasma 140 136 - 145 mmol/L 07/16/2025 6:01 AM EDT [facility] Potassium, Plasma 3.4(L) 3.6 - 4.9 mmol/L 07/16/2025 6:01 AM EDT [facility] Chloride, Plasma 99 97 - 107 mmol/L 07/16/2025 6:01 AM EDT [facility] CO2, Plasma 31(H) 22 - 29 mmol/L 07/16/2025 6:01 AM EDT [facility] Anion Gap 10 6 - 16 mmol/L 07/16/2025 6:01 AM EDT [facility] Total Calcium, Plasma 8.6(L) 8.9 - 10.2 mg/dL 07/16/2025 6:01 AM EDT [facility] eGFRcr 116.3 mL/min/1.7 3m*2 07/16/2025 6:01 AM EDT [facility] Comment:Reported eGFRcr in m L/min/1.73m2 is based the CKD-EPI 2020 equation that does not use a race coefficient. Blood Venous blood specimen / Unknown Venipuncture / Unknown 07/16/2025 5:25 AM EDT 07/16/2025 5:33 AM EDT us Anne Franco MD LAB BLOOD ORDERABLES Sarah l Result [facility] [address] [place] [address] * (ABNORMAL) CBC W/O Differential (07/16/2025 5:25 AM EDT) WBC Count 22.22(H) 3.70 - 10.30 10*3/uL LAB HEMATOLOGY METHOD 07/16/2025 5:41 AM EDT [facility] RBC Count 3.30(L) 3.90 - 5.20 10*6/uL LAB HEMATOLOGY METHOD 07/16/2025 5:41 AM EDT [facility] HGB 8.9(L) 11.2 - 15.7 g/dL LAB HEMATOLOGY METHOD 07/16/2025 5:41 AM EDT [facility] HCT 28.9(L) 34.0 - 45.0 % LAB HEMATOLOGY METHOD 07/16/2025 5:41 AM EDT [facility] Platelet Count 376(H) 155 - 369 10*3/uL LAB HEMATOLOGY METHOD 07/16/2025 5:41 AM EDT [facility] MCV 88 79 - 98 fL LAB HEMATOLOGY METHOD 07/16/2025 5:41 AM EDT [facility] MCH 27.0 26.0 - 32.0 pg LAB HEMATOLOGY METHOD 07/16/2025 5:41 AM EDT [facility] MCHC 30.8 30.7 - 35.5 g/dL LAB HEMATOLOGY METHOD 07/16/2025 5:41 AM EDT [facility] RDW 17.2(H) 11.5 - 14.5 % LAB HEMATOLOGY METHOD 07/16/2025 5:41 AM EDT [facility] MPV 10.3 8.8 - 12.5 fL LAB HEMATOLOGY METHOD 07/16/2025 5:41 AM EDT [facility] nRBC 0.1(H) <=0.0 per 100 WBCs LAB HEMATOLOGY METHOD 07/16/2025 5:41 AM EDT [facility] Blood Venous blood specimen / Unknown Venipuncture / Unknown 07/16/2025 5:25 AM EDT 07/16/2025 5:33 AM EDT us Anne Franco MD LAB BLOOD ORDERABLES Sarah l Result Performing Organization Address City/[facility]/ZIP Co de Phone Number [facility] [address] [place] [address] * (ABNORMAL) POCT glucose meter (07/15/2025 9:38 PM EDT) [facility] POCT Glucose 173(H) 74 - 99 mg/dL [...] Comment 07/15/2025 9:39 PM EDT HEALTHCARE LAB Cafeteria Clerk ID Yessenia Ramirez 9:39 PM EDT HEALTHCARE LAB Device ID [id number] 07/15/2025 9:39 PM EDT [facility]ALTH[facility]ARE LAB Specimen Type POC Capillary 07/15/2025 9:39 PM EDT [facility] Blood Capillary blood specimen / Unknown 07/15/2025 9:38 PM EDT 07/15/2025 9:39 PM EDT us Anne Franco MD LAB POINT OF CARE TEST DOCKED DEVICE UNSOLICITED RESULTS Final Result [facility] [address] [place] [address] * (ABNORMAL) POCT glucose meter (07/15/2025 6:03 PM EDT) [facility] POCT Glucose 234(H) 74 - 99 mg/dL [...] 07/15/2025 6:04 PM EDT [facility] Cafeteria Clerk ID Venessa Amin 07/15/2025 6:04 PM EDT [facility] Device ID [id number] 07/15/2025 6:04 PM EDT [facility]ALTH[facility]ARE LAB Specimen Type POC Capillary 07/15/2025 6:04 PM EDT [facility] Blood Capillary blood specimen / Unknown 07/15/2025 6:03 PM EDT 07/15/2025 6:04 PM EDT Anne Franco MD LAB POINT OF CARE TEST DOCKED DEVICE UNSOLICITED RESULTS Final Result [facility] [address] [place] [address] * (ABNORMAL) POCT glucose meter (07/15/2025 12:38 PM EDT) [facility] POCT Glucose 153(H) 74 - 99 mg/dL [...] 07/15/2025 12:40 PM EDT [facility] Cafeteria Clerk ID Venessa Amin 07/15/2025 12:40 PM EDT [facility] Device ID [id number] 07/15/2025 12:40 PM EDT [facility]ALTH[facility]ARE LAB Specimen Type POC Capillary 07/15/2025 12:40 PM EDT [facility] Blood Capillary blood specimen / Unknown 07/15/2025 12:38 PM EDT 07/15/2025 12:40 PM EDT Anne Franco MD LAB POINT OF CARE TEST DOCKED DEVICE UNSOLICITED RESULTS Final Result Performing Organization Address City/[facility] Co de Phone Number [facility] LAB [address] [place] [address] * (ABNORMAL) POCT glucose meter (07/15/2025 8:38 AM EDT) [facility] POCT Glucose 132(H) 74 - 99 mg/dL [...] Comment 07/15/2025 8:39 AM EDT HEALTHCARE LAB Cafeteria Clerk ID Venessa Amin 07/15/2025 8:39 AM EDT HEALTHCARE LAB Device ID [id number] 07/15/2025 8:39 AM EDT [facility]ALTH[facility]ARE LAB Specimen Type POC Capillary 07/15/2025 8:39 AM EDT [facility] Blood Capillary blood specimen / Unknown 07/15/2025 8:38 AM EDT 07/15/2025 8:39 AM EDT us Anne Franco MD LAB POINT OF CARE TEST DOCKED DEVICE UNSOLICITED RESULTS Final Result Performing Organization Address City/[facility] Co de Phone Number [facility] [address] [place] [address] * (ABNORMAL) Phosphorus (07/15/2025 4:50 AM EDT) Pathologist [facility] Phosphorus, Plasma 2.3(L) 2.5 - 4.5 mg/dL 07/15/2025 7:33 AM EDT [facility] Blood Venous blood specimen / Unknown Venipuncture / Unknown 07/15/2025 4:50 AM EDT 07/15/2025 4:59 AM EDT Anne Franco MD LAB BLOOD ORDERABLES Sarah l Result Performing Organization Address City/[facility]/ZIP Co de Phone Number [facility] [address] [place] [address] * Magnesium (07/15/2025 4:50 AM EDT) Magnesium, Plasma 1.9 1.9 - 2.4 mg/dL 07/15/2025 7:33 AM EDT [facility] Blood Venous blood specimen / Unknown Venipuncture / Unknown 07/15/2025 4:50 AM EDT 07/15/2025 4:59 AM EDT Anne Franco MD LAB BLOOD ORDERABLES Sarah l Result Performing Organization Address City/[facility]/ZIP Co de Phone Number [facility] [address] [place] [address] * (ABNORMAL) Basic metabolic panel (07/15/2025 4:50 AM EDT) Glucose, Plasma 150(H) 74 - 99 mg/dL 07/15/2025 5:31 AM EDT [facility] BUN, Plasma 11 7 - 21 mg/dL 07/15/2025 5:31 AM EDT [facility] Creatinine, Plasma 0.54(L) 0.60 - 1.10 mg/dL 07/15/2025 5:31 AM EDT [facility] BUN/Creatinine Ratio 20 07/15/2025 5:31 AM EDT [facility] Sodium, Plasma 136 136 - 145 mmol/L 07/15/2025 5:31 AM EDT [facility] Potassium, Plasma 4.1 3.6 - 4.9 mmol/L 07/15/2025 5:31 AM EDT [facility] Chloride, Plasma 95(L) 97 - 107 mmol/L 07/15/2025 5:31 AM EDT [facility] CO2, Plasma 32(H) 22 - 29 mmol/L 07/15/2025 5:31 AM EDT [facility] Anion Gap 9 6 - 16 mmol/L 07/15/2025 5:31 AM EDT [facility] Total Calcium, Plasma 8.8(L) 8.9 - 10.2 mg/dL 07/15/2025 5:31 AM EDT [facility] eGFRcr 113.0 mL/min/1.7 3m*2 07/15/2025 5:31 AM EDT [facility] Comment:Reported eGFRcr in m L/min/1.73m2 is based the CKD-EPI 2020 equation that does not use a race coefficient. Blood Venous blood specimen / Unknown Venipuncture / Unknown 07/15/2025 4:50 AM EDT 07/15/2025 4:59 AM EDT Anne Franco MD LAB BLOOD ORDERABLES Sarah bennett Result [facility] [address] [place] [address] * (ABNORMAL) POCT glucose meter (07/14/2025 7:57 [...] for testing. Comment 07/14/2025 7:58 PM EDT [facility] Cafeteria Clerk ID Bernard Chirinos 07/14/20 7:58 PM EDT HEALTHCARE LAB Device ID [id number] 07/14/2025 7:58 PM EDT [facility]ALTH[facility]ARE LAB Specimen Type POC Capillary 07/14/2025 7:58 PM EDT [facility] Blood Capillary blood specimen / Unknown 07/14/2025 7:57 PM EDT 07/14/2025 7:58 PM EDT Anne Franco MD LAB POINT OF CARE TEST DOCKED DEVICE UNSOLICITED RESULTS Final Result Performing Organization Address [facility] de Phone Number [facility] [address] [place] [address] * (ABNORMAL) POCT glucose meter (07/14/2025 4:56 [...] for testing. Comment 07/14/2025 4:58 PM EDT [facility] Cafeteria Clerk ID Riana Higgins 07/14/2025 4:58 PM EDT [facility] Device ID [id number] 07/14/2025 4:58 PM EDT [facility] Specimen Type POC Capillary 07/14/2025 4:58 PM EDT [facility] Blood Capillary blood specimen / Unknown 07/14/2025 4:56 PM EDT 07/14/2025 4:58 PM EDT Anne Franco MD LAB POINT OF CARE TEST DOCKED DEVICE UNSOLICITED RESULTS Final Result Performing Organization Address City/[facility] Co de Phone Number [facility] [address] [place] [address] * (ABNORMAL) POCT glucose meter (07/14/2025 12:38 PM EDT) Pathologist [facility] POCT Glucose 143(H) 74 - 99 mg/dL [...] Comment 07/14/2025 12:39 PM EDT [facility]ALTHCARE LAB Cafeteria Clerk ID Laura Baez 025 12:39 PM EDT HEALTHCARE LAB Device ID [id number] 07/14/2025 12:39 PM EDT [facility]ALTH[facility]ARE LAB Specimen Type POC Capillary 07/14/2025 12:39 PM EDT [facility] Blood Capillary blood specimen / Unknown 07/14/2025 12:38 PM EDT 07/14/2025 12:39 PM EDT us Anne Franco MD LAB POINT OF CARE TEST DOCKED DEVICE UNSOLICITED RESULTS Final Result [facility] [address] [place] [address] * (ABNORMAL) Basic metabolic panel (07/14/2025 9:36 AM EDT) Glucose, Plasma 191(H) 74 - 99 mg/dL 07/14/2025 10:15 AM EDT [facility] BUN, Plasma 16 7 - 21 mg/dL 07/14/2025 10:15 AM EDT [facility] Creatinine, Plasma 0.61 0.60 - 1.10 mg/dL 07/14/2025 10:15 AM EDT [facility] BUN/Creatinine Ratio 26 07/14/2025 10:15 AM EDT [facility] Sodium, Plasma 138 136 - 145 mmol/L 07/14/2025 10:15 AM EDT [facility] Potassium, Plasma 3.2(L) 3.6 - 4.9 mmol/L 07/14/2025 10:15 AM EDT [facility] Chloride, Plasma 96(L) 97 - 107 mmol/L 07/14/2025 10:15 AM EDT [facility] CO2, Plasma 33(H) 22 - 29 mmol/L 07/14/2025 10:15 AM EDT [facility] Anion Gap 9 6 - 16 mmol/L 07/14/2025 10:15 AM EDT [facility] Total Calcium, Plasma 8.7(L) 8.9 - 10.2 mg/dL 07/14/2025 10:15 AM EDT [facility] eGFRcr 109.8 mL/min/1.7 3m*2 07/14/2025 10:15 AM EDT [facility] Comment:Reported eGFRcr in m L/min/1.73m2 is based the CKD-EPI 2020 equation that does not use a race coefficient. Blood Venous blood specimen / Unknown Venipuncture / Unknown 07/14/2025 9:36 AM EDT 07/14/2025 9:44 AM EDT us Anne Franco MD LAB BLOOD ORDERABLES Sarah l Result Performing Organization Address City/[facility]/ZIP Co de Phone Number [facility] [address] [place] [address] * (ABNORMAL) Magnesium, Plasma (07/14/2025 9:36 AM EDT) Magnesium, Plasma 1.7(L) 1.9 - 2.4 mg/dL 07/14/2025 10:15 AM EDT [facility] Blood Venous blood specimen / Unknown Venipuncture / Unknown 07/14/2025 9:36 AM EDT 07/14/2025 9:44 AM EDT us Anne Franco MD LAB BLOOD ORDERABLES Sarah l Result Performing Organization Address City/[facility]/ZIP Co de Phone Number [facility] [address] [place] [address] * (ABNORMAL) Phosphorus, Plasma (07/14/2025 9:36 AM EDT) Phosphorus, Plasma 2.2(L) 2.5 - 4.5 mg/dL 07/14/2025 10:15 AM EDT [facility] Blood Venous blood specimen / Unknown Venipuncture / Unknown 07/14/2025 9:36 AM EDT 07/14/2025 9:44 AM EDT us Anne Franco MD LAB BLOOD ORDERABLES Sarah sabrina Result [facility] [address] [place] [address] * (ABNORMAL) CBC W/O Differential (07/14/2025 9:36 AM EDT) WBC Count 21.20(H) 3.70 - 10.30 10*3/uL LAB HEMATOLOGY METHOD 07/14/2025 9:52 AM EDT [facility] RBC Count 3.37(L) 3.90 - 5.20 10*6/uL LAB HEMATOLOGY METHOD 07/14/2025 9:52 AM EDT [facility] HGB 9.2(L) 11.2 - 15.7 g/dL LAB HEMATOLOGY METHOD 07/14/2025 9:52 AM EDT [facility] HCT 29.4(L) 34.0 - 45.0 % LAB HEMATOLOGY METHOD 07/14/2025 9:52 AM EDT [facility] [facility] Platelet Count 314 155 - 369 10*3/uL LAB HEMATOLOGY METHOD 07/14/2025 9:52 AM EDT [facility] MCV 87 79 - 98 fL LAB HEMATOLOGY METHOD 07/14/2025 9:52 AM EDT [facility] MCH 27.3 26.0 - 32.0 pg LAB HEMATOLOGY METHOD 07/14/2025 9:52 AM EDT [facility] MCHC 31.3 30.7 - 35.5 g/dL LAB HEMATOLOGY METHOD 07/14/2025 9:52 AM EDT [facility] RDW 17.2(H) 11.5 - 14.5 % LAB HEMATOLOGY METHOD 07/14/2025 9:52 AM EDT [facility] MPV 10.2 8.8 - 12.5 fL LAB HEMATOLOGY METHOD 07/14/2025 9:52 AM EDT [facility] nRBC 0.1(H) <=0.0 per 100 WBCs LAB HEMATOLOGY METHOD 07/14/2025 9:52 AM EDT [facility] Blood Venous blood specimen / Unknown Venipuncture / Unknown 07/14/2025 9:36 AM EDT 07/14/2025 9:44 AM EDT us Anne Franco MD LAB BLOOD ORDERABLES Sarah l Result Performing Organization Address City/[facility] Co de Phone Number [facility] [address] [place] [address] * (ABNORMAL) POCT glucose meter (07/14/2025 8:39 [...] for testing. Comment 07/14/2025 8:41 AM EDT [facility] Cafeteria Clerk ID Laura Baez 025 8:41 AM EDT [facility] Device ID [id number] 07/14/2025 8:41 AM EDT [facility] Specimen Type POC Capillary 07/14/2025 8:41 AM EDT [facility] Blood Capillary blood specimen / Unknown 07/14/2025 8:39 AM EDT 07/14/2025 8:41 AM EDT us Anne Franco MD LAB POINT OF CARE TEST DOCKED DEVICE UNSOLICITED RESULTS Final Result Performing Organization Address City/[facility] Co de Phone Number [facility] [address] [place] [address] * (ABNORMAL) POCT glucose meter (07/14/2025 6:18 [...] Comment 07/14/2025 6:20 AM EDT [facility]ARE LAB Cafeteria Clerk ID Rita Alejandro 6:20 AM EDT [facility] Device ID [id number] 07/14/2025 6:20 AM EDT [facility] Specimen Type POC Capillary 07/14/2025 6:20 AM EDT [facility] Blood Capillary blood specimen / Unknown 07/14/2025 6:18 AM EDT 07/14/2025 6:20 AM EDT us Anne Franco MD LAB POINT OF CARE TEST DOCKED DEVICE UNSOLICITED RESULTS Final Result Performing Organization Address City/[facility] Co de Phone Number [facility] [address] [place] [address] * (ABNORMAL) POCT glucose meter (07/13/2025 9:18 [...] Comment 07/13/2025 9:19 PM EDT [facility]ARE LAB Cafeteria Clerk ID Yenny Tong 025 9:19 PM EDT [facility] LAB Device ID [id number] 07/13/2025 9:19 PM EDT [facility] Specimen Type POC Capillary 07/13/2025 9:19 PM EDT [facility] Blood Capillary blood specimen / Unknown 07/13/2025 9:18 PM EDT 07/13/2025 9:19 PM EDT us Anne Franco MD LAB POINT OF CARE TEST DOCKED DEVICE UNSOLICITED RESULTS Final Result Performing Organization Address City/[facility]/ZIP Co de Phone Number [facility] [address] [place] [address] * (ABNORMAL) POCT glucose meter (07/13/2025 6:01 [...] Comment 07/13/2025 6:02 PM EDT [facility]ARE LAB Cafeteria Clerk ID Laura Baez 025 6:02 PM EDT [facility] Device ID [id number] 07/13/2025 6:02 PM EDT [facility] Specimen Type POC Capillary 07/13/2025 6:02 PM EDT [facility] Blood Capillary blood specimen / Unknown 07/13/2025 6:01 PM EDT 07/13/2025 6:02 PM EDT us Anne Franco MD LAB POINT OF CARE TEST DOCKED DEVICE UNSOLICITED RESULTS Final Result Performing Organization Address City/State/[facility] Co de Phone Number [facility] [address] [place] [address] * (ABNORMAL) POCT glucose meter (07/13/2025 12:12 PM EDT) Pathologist [facility] POCT Glucose 139(H) 74 - 99 mg/dL [...] 07/13/2025 12:14 PM EDT [facility] Cafeteria Clerk ID Laura Baez 025 12:14 PM EDT [facility] Device ID [id number] 07/13/2025 12:14 PM EDT [facility] Specimen Type POC Capillary 07/13/2025 12:14 PM EDT [facility] Blood Capillary blood specimen / Unknown 07/13/2025 12:12 PM EDT 07/13/2025 12:14 PM EDT Anne Franco MD LAB POINT OF CARE TEST DOCKED DEVICE UNSOLICITED RESULTS Final Result Performing Organization Address City/[facility]/ZIP Co de Phone Number [facility] [address] [place] [address] * (ABNORMAL) Phosphorus (07/13/2025 10:21 AM EDT) Phosphorus, Plasma 2.2(L) 2.5 - 4.5 mg/dL 07/13/2025 11:23 AM EDT [facility] Blood Venous blood specimen / Unknown Venipuncture / Unknown 07/13/2025 10:21 AM EDT 07/13/2025 10:31 AM EDT us Luanne Crawford MD LAB BLOOD ORDERABLES Final Result Performing Organization Address City/[facility]/ZIP Co de Phone Number [facility] [address] [place] [address] * (ABNORMAL) Magnesium, Plasma (07/13/2025 10:21 AM EDT) Magnesium, Plasma 1.7(L) 1.9 - 2.4 mg/dL 07/13/2025 11:23 AM EDT [facility] Blood Venous blood specimen / Unknown Venipuncture / Unknown 07/13/2025 10:21 AM EDT 07/13/2025 10:31 AM EDT Luanne Crawford MD LAB BLOOD ORDERABLES Final Result Performing Organization Address City/[facility]/ZIP Co de Phone Number [facility] [address] [place] [address] * (ABNORMAL) Basic Metabolic Panel, Plasma (07/13/2025 10:21 AM EDT) Glucose, Plasma 135(H) 74 - 99 mg/dL 07/13/2025 11:23 AM EDT [facility] BUN, Plasma 22(H) 7 - 21 mg/dL 07/13/2025 11:23 AM EDT [facility] Creatinine, Plasma 0.62 0.60 - 1.10 mg/dL 07/13/2025 11:23 AM EDT [facility] BUN/Creatinine Ratio 35 07/13/2025 11:23 AM EDT [facility] Sodium, Plasma 138 136 - 145 mmol/L 07/13/2025 11:23 AM EDT [facility] Potassium, Plasma 3.7 3.6 - 4.9 mmol/L 07/13/2025 11:23 AM EDT [facility] Chloride, Plasma 95(L) 97 - 107 mmol/L 07/13/2025 11:23 AM EDT [facility] CO2, Plasma 30(H) 22 - 29 mmol/L 07/13/2025 11:23 AM EDT [facility] Anion Gap 13 6 - 16 mmol/L 07/13/2025 11:23 AM EDT [facility] Total Calcium, Plasma 9.0 8.9 - 10.2 mg/dL 07/13/2025 11:23 AM EDT [facility] eGFRcr 109.3 mL/min/1.7 3m*2 07/13/2025 11:23 AM EDT [facility] Comment:Reported eGFRcr in m L/min/1.73m2 is based the CKD-EPI 2020 equation that does not use a race coefficient. Blood Venous blood specimen / Unknown Venipuncture / Unknown 07/13/2025 10:21 AM EDT 07/13/2025 10:31 AM EDT us Luanne Crawford MD LAB BLOOD ORDERABLES Final Result [facility] [address] [place] [address] * (ABNORMAL) CBC W/O Differential (07/13/2025 10:21 AM EDT) WBC Count 19.56(H) 3.70 - 10.30 10*3/uL LAB HEMATOLOGY METHOD 07/13/2025 10:59 AM EDT [facility] RBC Count 3.67(L) 3.90 - 5.20 10*6/uL LAB HEMATOLOGY METHOD 07/13/2025 10:59 AM EDT [facility] HGB 10.2(L) 11.2 - 15.7 g/dL LAB HEMATOLOGY METHOD 07/13/2025 10:59 AM EDT [facility] HCT 32.3(L) 34.0 - 45.0 % LAB HEMATOLOGY METHOD 07/13/2025 10:59 AM EDT [facility] Platelet Count 296 155 - 369 10*3/uL LAB HEMATOLOGY METHOD 07/13/2025 10:59 AM EDT [facility] MCV 88 79 - 98 fL LAB HEMATOLOGY METHOD 07/13/2025 10:59 AM EDT [facility] MCH 27.8 26.0 - 32.0 pg LAB HEMATOLOGY METHOD 07/13/2025 10:59 AM EDT [facility] MCHC 31.6 30.7 - 35.5 g/dL LAB HEMATOLOGY METHOD 07/13/2025 10:59 AM EDT [facility] RDW 17.6(H) 11.5 - 14.5 % LAB HEMATOLOGY METHOD 07/13/2025 10:59 AM EDT [facility] MPV 10.3 8.8 - 12.5 fL LAB HEMATOLOGY METHOD 07/13/2025 10:59 AM EDT [facility] nRBC 0.0 <=0.0 per 100 WBCs LAB HEMATOLOGY METHOD 07/13/2025 10:59 AM EDT [facility] Blood Venous blood specimen / Unknown Venipuncture / Unknown 07/13/2025 10:21 AM EDT 07/13/2025 10:31 AM EDT us Luanne Crawford MD LAB BLOOD ORDERABLES Final Result [facility] [address] [place] [address] * (ABNORMAL) POCT glucose meter (07/13/2025 8:50 [...] for testing. Comment 07/13/2025 8:53 AM EDT [facility] Cafeteria Clerk ID Laura Baez 025 8:53 AM EDT [facility] Device ID [id number] 07/13/2025 8:53 AM EDT [facility]ALTH[facility]ARE LAB Specimen Type POC Capillary 07/13/2025 8:53 AM EDT [facility] Blood Capillary blood specimen / Unknown 07/13/2025 8:50 AM EDT 07/13/2025 8:53 AM EDT Anne Franco MD LAB POINT OF CARE TEST DOCKED DEVICE UNSOLICITED RESULTS Final Result Performing Organization Address City/State/[facility] Co de Phone Number [facility] [address] [place] [address] * (ABNORMAL) POCT glucose meter (07/13/2025 6:11 AM EDT) [facility] POCT Glucose 111(H) 74 - 99 mg/dL [...] 07/13/2025 6:13 AM EDT [facility] Cafeteria Clerk ID Rita Alejandro 6:13 AM EDT [facility] Device ID [id number] 07/13/2025 6:13 AM EDT [facility] Specimen Type POC Capillary 07/13/2025 6:13 AM EDT [facility] Blood Capillary blood specimen / Unknown 07/13/2025 6:11 AM EDT 07/13/2025 6:13 AM EDT us Anne Franco MD LAB POINT OF CARE TEST DOCKED DEVICE UNSOLICITED RESULTS Final Result Performing Organization Address [facility] de Phone Number HEALTHCARE LAB [address] [place] [address] * (ABNORMAL) POCT glucose meter (07/12/2025 9:28 [...] for testing. Comment 07/12/2025 9:30 PM EDT [facility] Cafeteria Clerk ID Yenny Tong 025 9:30 PM EDT [facility] Device ID [id number] 07/12/2025 9:30 PM EDT [facility] Specimen Type POC Capillary 07/12/2025 9:30 PM EDT [facility] Blood Capillary blood specimen / Unknown 07/12/2025 9:28 PM EDT 07/12/2025 9:30 PM EDT us Anne Franco MD LAB POINT OF CARE TEST DOCKED DEVICE UNSOLICITED RESULTS Final Result Performing Organization Address City/[facility] Co de Phone Number [facility] [address] [place] [address] * (ABNORMAL) POCT glucose meter (07/12/2025 6:04 [...] Comment 07/12/2025 6:06 PM EDT HEALTHCARE LAB Cafeteria Clerk ID Jeana Bear 07/12/2025 6:06 PM EDT HEALTHCARE LAB Device ID [id number] 07/12/2025 6:06 PM EDT HEALTHCARE LAB Specimen Type POC Capillary 07/12/2025 6:06 PM EDT [facility] LAB Blood Capillary blood specimen / Unknown 07/12/2025 6:04 PM EDT 07/12/2025 6:06 PM EDT us Anne Franco MD LAB POINT OF CARE TEST DOCKED DEVICE UNSOLICITED RESULTS Final Result Performing Organization Address City/State/[facility] Co de Phone Number HEALTHCARE LAB [address] [place] [address] * PERIPHERAL IV (SMARTFORM LINK) (07/12/2025 3:51 [...] Comment 07/12/2025 11:56 AM EDT HEALTHCARE LAB Cafeteria Clerk ID Jeana Bear 07/12/2025 11:56 AM EDT HEALTHCARE LAB Device ID [id number] 07/12/2025 11:56 AM EDT [facility]ALTH[facility]ARE LAB Specimen Type POC Capillary 07/12/2025 11:56 AM EDT [facility] Blood Capillary blood specimen / Unknown 07/12/2025 11:55 AM EDT 07/12/2025 11:56 AM EDT Dorcas Hennessy MD LAB POINT OF CARE TE ST DOCKED DEVICE UNSOLICITED RESULTS Final Result Performing Organization Address City/State/[facility] Co nv Phone Number HEALTHCARE LAB [address] [place] [address] * XR Chest 1 View (07/12/2025 11:11 [...] worse. No pleural effusion. Procedure Note Moy hKoury MD - 07/12/2025 CLINICAL INDICATION: SOA, on [...] for testing. Comment 07/12/2025 8:42 AM EDT [facility] Cafeteria Clerk ID Jeana Bear 07/12/2025 8:42 AM EDT [facility] Device ID [id number] 07/12/2025 8:42 AM EDT [facility] Specimen Type POC Capillary 07/12/2025 8:42 AM EDT [facility] Blood Capillary blood specimen / Unknown 07/12/2025 8:41 AM EDT 07/12/2025 8:42 AM EDT us Dorcas Hennessy MD LAB POINT OF CARE TE ST DOCKED DEVICE UNSOLICITED RESULTS Final Result [facility] [address] [place] [address] * Phosphorus (07/12/2025 12:25 AM EDT) Phosphorus, Plasma 2.9 2.5 - 4.5 mg/dL 07/12/2025 1:22 AM EDT [facility] Blood Venous blood specimen / Unknown Venipuncture / Unknown 07/12/2025 12:25 AM EDT 07/12/2025 12:52 AM EDT us Luanne Crawford MD LAB BLOOD ORDERABLES Final Result Performing Organization Address [facility]/ZIP Co de Phone Number [facility] [address] [place] [address] * Magnesium, Plasma (07/12/2025 12:25 AM EDT) Magnesium, Plasma 2.0 1.9 - 2.4 mg/dL 07/12/2025 1:22 AM EDT [facility] Blood Venous blood specimen / Unknown Venipuncture / Unknown 07/12/2025 12:25 AM EDT 07/12/2025 12:52 AM EDT us Luanne Crawford MD LAB BLOOD ORDERABLES Final Result Performing Organization Address [facility]/ZIP Co de Phone Number [facility] [address] [place] [address] * (ABNORMAL) Basic Metabolic Panel, Plasma (07/12/2025 12:25 AM EDT) Glucose, Plasma 92 74 - 99 mg/dL 07/12/2025 1:22 AM EDT [facility] BUN, Plasma 18 7 - 21 mg/dL 07/12/2025 1:22 AM EDT [facility] Creatinine, Plasma 0.84 0.60 - 1.10 mg/dL 07/12/2025 1:22 AM EDT [facility] BUN/Creatinine Ratio 21 07/12/2025 1:22 AM EDT [facility] Sodium, Plasma 142 136 - 145 mmol/L 07/12/2025 1:22 AM EDT [facility] Potassium, Plasma 3.6 3.6 - 4.9 mmol/L 07/12/2025 1:22 AM EDT [facility] Chloride, Plasma 103 97 - 107 mmol/L 07/12/2025 1:22 AM EDT [facility] CO2, Plasma 31(H) 22 - 29 mmol/L 07/12/2025 1:22 AM EDT [facility] Anion Gap 8 6 - 16 mmol/L 07/12/2025 1:22 AM EDT [facility] Total Calcium, Plasma 8.8(L) 8.9 - 10.2 mg/dL 07/12/2025 1:22 AM EDT [facility] eGFRcr 85.3 mL/min/1.7 3m*2 07/12/2025 1:22 AM EDT [facility] Comment:Reported eGFRcr in m L/min/1.73m2 is based the CKD-EPI 2020 equation that does not use a race coefficient. Blood Venous blood specimen / Unknown Venipuncture / Unknown 07/12/2025 12:25 AM EDT 07/12/2025 12:52 AM EDT us Luanne Crawford MD LAB BLOOD ORDERABLES Final Result [facility] [address] [place] [address] * (ABNORMAL) CBC W/O Differential (07/12/2025 12:25 AM EDT) WBC Count 15.81(H) 3.70 - 10.30 10*3/uL LAB HEMATOLOGY METHOD 07/12/2025 1:05 AM EDT [facility] RBC Count 3.39(L) 3.90 - 5.20 10*6/uL LAB HEMATOLOGY METHOD 07/12/2025 1:05 AM EDT [facility] HGB 9.3(L) 11.2 - 15.7 g/dL LAB HEMATOLOGY METHOD 07/12/2025 1:05 AM EDT [facility] HCT 29.8(L) 34.0 - 45.0 % LAB HEMATOLOGY METHOD 07/12/2025 1:05 AM EDT [facility] Platelet Count 276 155 - 369 10*3/uL LAB HEMATOLOGY METHOD 07/12/2025 1:05 AM EDT [facility] MCV 88 79 - 98 fL LAB HEMATOLOGY METHOD 07/12/2025 1:05 AM EDT [facility] MCH 27.4 26.0 - 32.0 pg LAB HEMATOLOGY METHOD 07/12/2025 1:05 AM EDT [facility] MCHC 31.2 30.7 - 35.5 g/dL LAB HEMATOLOGY METHOD 07/12/2025 1:05 AM EDT [facility] RDW 18.0(H) 11.5 - 14.5 % LAB HEMATOLOGY METHOD 07/12/2025 1:05 AM EDT [facility] MPV 10.5 8.8 - 12.5 fL LAB HEMATOLOGY METHOD 07/12/2025 1:05 AM EDT [facility] nRBC 0.0 <=0.0 per 100 WBCs LAB HEMATOLOGY METHOD 07/12/2025 1:05 AM EDT [facility] Blood Venous blood specimen / Unknown Venipuncture / Unknown 07/12/2025 12:25 AM EDT 07/12/2025 12:55 AM EDT Luanne Crawford MD LAB BLOOD ORDERABLES Final Result Performing Organization Address City/[facility]/ZIP Co de Phone Number [facility] [address] [place] [address] * (ABNORMAL) POCT Glucose (if patient NPO, on TPN or continuous nutrition) (07/11/2025 8:45 PM EDT) Pathologist [facility] POCT Glucose 119(A) 74 - 99 mg/dL [facility] Test Strip Lot Number \[id number]\ HEALTHCARE LAB Test Strip Expiration 09/24/2026 [facility] LAB Blood Venous blood specimen / Unknown 07/11/2025 8:45 PM EDT us Dorcas Hennessy MD POINT OF CARE TEST ENTER/EDIT OR DERABLES Final Result [facility] [address] [place] [address] * (ABNORMAL) POCT Glucose - Before Meals and Bedtime (07/11/2025 8:43 PM EDT) POCT Glucose 119(A) 74 - 99 mg/dL [facility] Test Strip Lot Number [id number] [facility]ALTHCARE LAB Test Strip Expiration 09/24/2026 [facility] LAB Blood Venous blood specimen / Unknown 07/11/2025 8:43 PM EDT us Dorcas Hennessy MD POINT OF CARE TEST ENTER/EDIT OR DERABLES Final Result Performing Organization Address [facility] Co de Phone Number HEALTHCARE LAB [address] [place] [address] * (ABNORMAL) POCT glucose meter (07/11/2025 8:42 [...] Comment 07/11/2025 8:43 PM EDT HEALTHCARE LAB Cafeteria Clerk ID Jf Cruz 07/11/2025 8:43 PM EDT [facility] Device ID [id number] 07/11/2025 8:43 PM EDT [facility] Specimen Type POC Capillary 07/11/2025 8:43 PM EDT [facility] Blood Capillary blood specimen / Unknown 07/11/2025 8:42 PM EDT 07/11/2025 8:43 PM EDT us Dorcas Hennessy MD LAB POINT OF CARE TE ST DOCKED DEVICE UNSOLICITED RESULTS Final Result Performing Organization Address City/[facility] Co de Phone Number [facility] [address] [place] [address] * (ABNORMAL) POCT glucose meter (07/11/2025 5:38 [...] 07/11/2025 5:40 PM EDT [facility] Cafeteria Clerk ID Ayana Amato 07/11/2025 5:40 PM EDT [facility] Device ID [id number] 07/11/2025 5:40 PM EDT [facility] Specimen Type POC Capillary 07/11/2025 5:40 PM EDT [facility] Blood Capillary blood specimen / Unknown 07/11/2025 5:38 PM EDT 07/11/2025 5:40 PM EDT us Dorcas Hennessy MD LAB POINT OF CARE TE ST DOCKED DEVICE UNSOLICITED RESULTS Final Result Performing Organization Address [facility] de Phone Number HEALTHCARE LAB [address] [place] [address] * (ABNORMAL) POCT glucose meter (07/11/2025 3:36 PM EDT) [facility] POCT Glucose 144(H) 74 - 99 mg/dL [...] 07/11/2025 3:38 PM EDT [facility] Cafeteria Clerk ID Radha Frias 07/11/20 25 3:38 PM EDT [facility] Device ID [id number] 07/11/2025 3:38 PM EDT [facility] Specimen Type POC Venous 07/11/2025 3:38 PM EDT [facility] Blood Venous blood specimen / Unknown 07/11/2025 3:36 PM EDT 07/11/2025 3:38 PM EDT us Dorcas Hennessy MD LAB POINT OF CARE TE ST DOCKED DEVICE UNSOLICITED RESULTS Final Result Performing Organization Address City/[facility] Co de Phone Number [facility] [address] [place] [address] * (ABNORMAL) POCT glucose meter (07/11/2025 1:52 PM EDT) [facility] POCT Glucose 140(H) 74 - 99 mg/dL [...] Comment 07/11/2025 1:54 PM EDT HEALTHCARE LAB Cafeteria Clerk ID Ayana Amato 07/11/2025 1:54 PM EDT [facility] Device ID [id number] 07/11/2025 1:54 PM EDT HEALTHCARE LAB Specimen Type POC Capillary 07/11/2025 1:54 PM EDT [facility] Blood Capillary blood specimen / Unknown 07/11/2025 1:52 PM EDT 07/11/2025 1:54 PM EDT Dorcas Hennessy MD LAB POINT OF CARE TE ST DOCKED DEVICE UNSOLICITED RESULTS Final Result [facility] [address] [place] [address] * (ABNORMAL) POCT glucose meter (07/11/2025 12:12 PM EDT) [facility] POCT Glucose 154(H) 74 - 99 mg/dL [...] 07/11/2025 12:13 PM EDT [facility] Cafeteria Clerk ID Ayana Amato 07/11/2025 12:13 PM EDT [facility] Device ID [id number] 07/11/2025 12:13 PM EDT [facility]ALTH[facility]ARE LAB Specimen Type POC Capillary 07/11/2025 12:13 PM EDT [facility] Blood Capillary blood specimen / Unknown 07/11/2025 12:12 PM EDT 07/11/2025 12:13 PM EDT Luanne Crawford MD LAB POINT OF CARE TEST DOCKED DEVICE UNSOLICITED RESULTS Final Result Performing Organization Address [facility] Co de Phone Number HEALTHCARE LAB [address] [place] [address] * (ABNORMAL) POCT glucose meter (07/11/2025 9:57 AM EDT) [facility] POCT Glucose 135(H) 74 - 99 mg/dL [...] Comment 07/11/2025 9:59 AM EDT HEALTHCARE LAB Cafeteria Clerk ID Ayana Amato 07/11/2025 9:59 AM EDT [facility]ALTHCARE LAB Device ID [id number] 07/11/2025 9:59 AM EDT [facility]ALTH[facility]ARE LAB Specimen Type POC Capillary 07/11/2025 9:59 AM EDT [facility] Blood Capillary blood specimen / Unknown 07/11/2025 9:57 AM EDT 07/11/2025 9:59 AM EDT us Luanne Crawford MD LAB POINT OF CARE TEST DOCKED DEVICE UNSOLICITED RESULTS Final Result Performing Organization Address City/[facility] Co de Phone Number [facility]ALTHCARE LAB [address] [place] [address] * [facility]ICAL [facility]ARE, E/M 30-74 MINUTES (07/11/2025 8:41 [...] POCT glucose meter (07/11/2025 8:13 AM EDT) [facility] POCT Glucose 140(H) 74 - 99 mg/dL 07/11/2025 8:15 AM EDT [facility] Comment:Accuracy of a glucos e result [...] for testing. Comment 07/11/2025 8:15 AM EDT [facility] Cafeteria Clerk ID Ayana Amato 07/11/2025 8:15 AM EDT [facility] Device ID [id number] 07/11/2025 8:15 AM EDT HEALTHCARE LAB Specimen Type POC Capillary 07/11/2025 8:15 AM EDT [facility]ALTH[facility] LAB Blood Capillary blood specimen / Unknown 07/11/2025 8:13 AM EDT 07/11/2025 8:15 AM EDT us Luanne Crawford MD LAB POINT OF CARE TEST DOCKED DEVICE UNSOLICITED RESULTS Final Result Performing Organization Address City/[facility] Co de Phone Number HEALTHCARE LAB [address] [place] [address] * (ABNORMAL) POCT glucose meter (07/11/2025 6:03 [...] Comment 07/11/2025 6:05 AM EDT HEALTHCARE LAB Cafeteria Clerk ID Cheyanne Briceño 07/11/2025 6:05 AM EDT HEALTHCARE LAB Device ID [id number] 07/11/2025 6:05 AM EDT [facility]ALTH[facility]ARE LAB Specimen Type POC Capillary 07/11/2025 6:05 AM EDT [facility] Blood Capillary blood specimen / Unknown 07/11/2025 6:03 AM EDT 07/11/2025 6:05 AM EDT us Luanne Crawford MD LAB POINT OF CARE TEST DOCKED DEVICE UNSOLICITED RESULTS Final Result Performing Organization Address City/[facility] Co de Phone Number [facility] [address] [place] [address] * (ABNORMAL) POCT glucose meter (07/11/2025 4:04 [...] 07/11/2025 4:06 AM EDT [facility] Cafeteria Clerk ID Cheyanne Briceño 07/11/2025 4:06 AM EDT [facility] Device ID [id number] 07/11/2025 4:06 AM EDT [facility] Specimen Type POC Capillary 07/11/2025 4:06 AM EDT [facility] Blood Capillary blood specimen / Unknown 07/11/2025 4:04 AM EDT 07/11/2025 4:06 AM EDT us Luanne Crawford MD LAB POINT OF CARE TEST DOCKED DEVICE UNSOLICITED RESULTS Final Result Performing Organization Address City/State/[facility] Co de Phone Number [facility] [address] [place] [address] * (ABNORMAL) POCT glucose meter (07/11/2025 2:02 AM EDT) [facility] Signature POCT Glucose 130(H) 74 - 99 mg/dL [...] for testing. Comment 07/11/2025 2:03 AM EDT [facility] Cafeteria Clerk ID Cheyanne Briceño 07/11/2025 2:03 AM EDT [facility] Device ID [id number] 07/11/2025 2:03 AM EDT [facility] HEALTHCARE LAB Specimen Type POC Capillary 07/11/2025 2:03 AM EDT [facility]ALTHCARE LAB Blood Capillary blood specimen / Unknown 07/11/2025 2:02 AM EDT 07/11/2025 2:03 AM EDT us Luanne Crawford MD LAB POINT OF CARE TEST DOCKED DEVICE UNSOLICITED RESULTS Final Result Performing Organization Address City/[facility]/ZIP Co de Phone Number [facility] [address] [place] [address] * Phosphorus (07/11/2025 12:09 AM EDT) Phosphorus, Plasma 3.7 2.5 - 4.5 mg/dL 07/11/2025 12:54 AM EDT [facility] Blood Venous blood specimen / Unknown Venipuncture / Unknown 07/11/2025 12:09 AM EDT 07/11/2025 12:26 AM EDT Luanne Crawford MD LAB BLOOD ORDERABLES Final Result Performing Organization Address City/[facility] Co de Phone Number [facility] [address] [place] [address] * (ABNORMAL) Magnesium, Plasma (07/11/2025 12:09 AM EDT) Magnesium, Plasma 1.8(L) 1.9 - 2.4 mg/dL 07/11/2025 12:54 AM EDT [facility] Blood Venous blood specimen / Unknown Venipuncture / Unknown 07/11/2025 12:09 AM EDT 07/11/2025 12:26 AM EDT us Luanne Crawford MD LAB BLOOD ORDERABLES Final Result [facility] [address] [place] [address] * (ABNORMAL) Basic Metabolic Panel, Plasma (07/11/2025 12:09 AM EDT) Glucose, Plasma 163(H) 74 - 99 mg/dL 07/11/2025 12:54 AM EDT [facility] BUN, Plasma 20 7 - 21 mg/dL 07/11/2025 12:54 AM EDT [facility] Creatinine, Plasma 0.99 0.60 - 1.10 mg/dL 07/11/2025 12:54 AM EDT [facility] BUN/Creatinine Ratio 20 07/11/2025 12:54 AM EDT [facility] Sodium, Plasma 141 136 - 145 mmol/L 07/11/2025 12:54 AM EDT [facility] Potassium, Plasma 3.8 3.6 - 4.9 mmol/L 07/11/2025 12:54 AM EDT [facility] Chloride, Plasma 104 97 - 107 mmol/L 07/11/2025 12:54 AM EDT [facility] CO2, Plasma 27 22 - 29 mmol/L 07/11/2025 12:54 AM EDT [facility] Anion Gap 10 6 - 16 mmol/L 07/11/2025 12:54 AM EDT [facility] Total Calcium, Plasma 9.1 8.9 - 10.2 mg/dL 07/11/2025 12:54 AM EDT [facility] eGFRcr 70.0 mL/min/1.7 3m*2 07/11/2025 12:54 AM EDT [facility] Comment:Reported eGFRcr in m L/min/1.73m2 is based the CKD-EPI 2020 equation that does not use a race coefficient. Blood Venous blood specimen / Unknown Venipuncture / Unknown 07/11/2025 12:09 AM EDT 07/11/2025 12:26 AM EDT us Luanne Crawford MD LAB BLOOD ORDERABLES Final Result [facility] [address] [place] [address] * (ABNORMAL) CBC W/O Differential (07/11/2025 12:09 AM EDT) WBC Count 13.23(H) 3.70 - 10.30 10*3/uL LAB HEMATOLOGY METHOD 07/11/2025 12:36 AM EDT [facility] RBC Count 3.65(L) 3.90 - 5.20 10*6/uL LAB HEMATOLOGY METHOD 07/11/2025 12:36 AM EDT [facility] HGB 10.1(L) 11.2 - 15.7 g/dL LAB HEMATOLOGY METHOD 07/11/2025 12:36 AM EDT [facility] HCT 32.1(L) 34.0 - 45.0 % LAB HEMATOLOGY METHOD 07/11/2025 12:36 AM EDT [facility] Platelet Count 270 155 - 369 10*3/uL LAB HEMATOLOGY METHOD 07/11/2025 12:36 AM EDT [facility] MCV 88 79 - 98 fL LAB HEMATOLOGY METHOD 07/11/2025 12:36 AM EDT [facility] MCH 27.7 26.0 - 32.0 pg LAB HEMATOLOGY METHOD 07/11/2025 12:36 AM EDT [facility] MCHC 31.5 30.7 - 35.5 g/dL LAB HEMATOLOGY METHOD 07/11/2025 12:36 AM EDT [facility] RDW 17.9(H) 11.5 - 14.5 % LAB HEMATOLOGY METHOD 07/11/2025 12:36 AM EDT [facility] MPV 10.7 8.8 - 12.5 fL LAB HEMATOLOGY METHOD 07/11/2025 12:36 AM EDT [facility] nRBC 0.0 <=0.0 per 100 WBCs LAB HEMATOLOGY METHOD 07/11/2025 12:36 AM EDT [facility] Blood Venous blood specimen / Unknown Venipuncture / Unknown 07/11/2025 12:09 AM EDT 07/11/2025 12:29 AM EDT us Luanne Crawford MD LAB BLOOD ORDERABLES Final Result [facility] [address] [place] [address] * (ABNORMAL) POCT glucose meter (07/11/2025 12:04 AM EDT) [facility] POCT Glucose 156(H) 74 - 99 mg/dL 07/11/2025 12:06 AM EDT [facility] Comment:Accuracy of a glucos [...] Comment 07/11/2025 12:06 AM EDT HEALTHCARE LAB Cafeteria Clerk ID Cheyanne Briceño 07/11/2025 12:06 AM EDT HEALTHCARE LAB Device ID [id number] 07/11/2025 12:06 AM EDT HEALTHCARE LAB Specimen Type POC Capillary 07/11/2025 12:06 AM EDT [facility]ALTHCARE LAB Blood Capillary blood specimen / Unknown 07/11/2025 12:04 AM EDT 07/11/2025 12:06 AM EDT us Luanne Crawford MD LAB POINT OF CARE TEST DOCKED DEVICE UNSOLICITED RESULTS Final Result Performing Organization Address City/[facility] Co de Phone Number HEALTHCARE LAB [address] [place] [address] * (ABNORMAL) POCT glucose meter (07/10/2025 10:02 PM EDT) [facility] POCT Glucose 202(H) 74 - 99 mg/dL [...] Comment 07/10/2025 10:03 PM EDT HEALTHCARE LAB Cafeteria Clerk ID Lidia Ugalde 07/10/2025 10:03 PM EDT HEALTHCARE LAB Device ID [id number] 07/10/2025 10:03 PM EDT HEALTHCARE LAB Specimen Type POC Capillary 07/10/2025 10:03 PM EDT [facility]ALTHCARE LAB Blood Capillary blood specimen / Unknown 07/10/2025 10:02 PM EDT 07/10/2025 10:03 PM EDT us Luanne Crawford MD LAB POINT OF CARE TEST DOCKED DEVICE UNSOLICITED RESULTS Final Result Performing Organization Address City/[facility]/ZIP Co de Phone Number [facility]CARE LAB [address] [place] [address] * (ABNORMAL) Blood gas panel, arterial (07/10/2025 8:23 PM EDT) pH, Arterial 7.30(L) 7.35 - 7.45 LAB HEMATOLOGY METHOD 07/10/2025 8:40 PM EDT [facility] pCO2, Arterial 57(H) 35 - 48 mmHg LAB HEMATOLOGY METHOD 07/10/2025 8:40 PM EDT [facility] pO2, Arterial 80(L) 83 - 108 mmHg LAB HEMATOLOGY METHOD 07/10/2025 8:40 PM EDT [facility] SO2, Measured, Arterial 95 94 - 98 % LAB HEMATOLOGY METHOD 07/10/2025 8:40 PM EDT [facility] Base Excess, Arterial 1.1 -2.0 - 3.0 mmol/L LAB HEMATOLOGY METHOD 07/10/2025 8:40 PM EDT [facility] Bicarbonate, Calculated, Arterial 28(H) 22 - 26 mmol/L LAB HEMATOLOGY METHOD 07/10/2025 8:40 PM EDT [facility] Hematocrit, Whole Blood 31.5(L) 34.0 - 45.0 % LAB HEMATOLOGY METHOD 07/10/2025 8:40 PM EDT [facility] Sodium, Whole Blood 138 136 - 145 mmol/L LAB HEMATOLOGY METHOD 07/10/2025 8:40 PM EDT [facility] Potassium, Whole Blood 3.9 3.6 - 4.9 mmol/L LAB HEMATOLOGY METHOD 07/10/2025 8:40 PM EDT [facility] Chloride, Whole Blood 103 97 - 107 mmol/L LAB HEMATOLOGY METHOD 07/10/2025 8:40 PM EDT [facility] Glucose, Whole Blood 206(H) 74 - 99 mg/dL LAB HEMATOLOGY METHOD 07/10/2025 8:40 PM EDT [facility] Ionized Calcium, Whole Blood 5.0 4.6 - 5.1 mg/dL LAB HEMATOLOGY METHOD 07/10/2025 8:40 PM EDT [facility] Lactate, Arterial, Whole Blood 1.7(H) 0.5 - 1.6 mmol/L LAB HEMATOLOGY METHOD 07/10/2025 8:40 PM EDT [facility] Blood Arterial blood specimen / Unknown Arterial Puncture / Unknown 07/10/2025 8:23 PM EDT 07/10/2025 8:35 PM EDT us Luanne Crawford MD LAB BLOOD ORDERABLES Final Result Performing Organization Address City/[facility]/ZIP Co de Phone Number [facility] [address] [place] [address] * (ABNORMAL) POCT glucose meter (07/10/2025 8:03 PM EDT) [facility] POCT Glucose 206(H) 74 - 99 mg/dL [...] Comment 07/10/2025 8:05 PM EDT HEALTHCARE LAB Cafeteria Clerk ID Cheyanne Briceño 07/10/2025 8:05 PM EDT HEALTHCARE LAB Device ID [id number] 07/10/2025 8:05 PM EDT HEALTHCARE LAB Specimen Type POC Capillary 07/10/2025 8:05 PM EDT [facility] Blood Capillary blood specimen / Unknown 07/10/2025 8:03 PM EDT 07/10/2025 8:05 PM EDT us Luanne Crawford MD LAB POINT OF CARE TEST DOCKED DEVICE UNSOLICITED RESULTS Final Result [facility] LAB [address] [place] [address] * (ABNORMAL) POCT glucose meter (07/10/2025 6:22 PM EDT) [facility] POCT Glucose 150(H) 74 - 99 mg/dL [...] Comment 07/10/2025 6:25 PM EDT HEALTHCARE LAB Cafeteria Clerk ID Zara Segovia 025 6:25 PM EDT HEALTHCARE LAB Device ID [id number] 07/10/2025 6:25 PM EDT [facility] Specimen Type POC Capillary 07/10/2025 6:25 PM EDT HEALTHCARE LAB Blood Capillary blood specimen / Unknown 07/10/2025 6:22 PM EDT 07/10/2025 6:25 PM EDT Luanne Crawford MD LAB POINT OF CARE TEST DOCKED DEVICE UNSOLICITED RESULTS Final Result Performing Organization Address [facility] Co de Phone Number HEALTHCARE LAB [address] [place] [address] * (ABNORMAL) POCT glucose meter (07/10/2025 2:17 PM EDT) [facility] POCT Glucose 145(H) 74 - 99 mg/dL [...] Comment 07/10/2025 2:19 PM EDT HEALTHCARE LAB Cafeteria Clerk ID Zara Segovia 025 2:19 PM EDT HEALTHCARE LAB Device ID [id number] 07/10/2025 2:19 PM EDT HEALTHCARE LAB Specimen Type POC Arterial 07/10/2025 2:19 PM EDT HEALTHCARE LAB Blood Arterial blood specimen / Unknown 07/10/2025 2:17 PM EDT 07/10/2025 2:19 PM EDT us Luanne Crawford MD LAB POINT OF CARE TEST DOCKED DEVICE UNSOLICITED RESULTS Final Result Performing Organization Address City/[facility]/ZIP Co de Phone Number [facility] [address] [place] [id number] * XR Abdomen 1 View (07/10/2025 12:03 [...] of the abdomen. COMPARISON: None. FINDINGS: Limited [id number] abdominal radiograph for the purpose of locating tube position. The tip of the nasogastric tube is within the mid stomach. Procedure Note Bernabe Sen MD - 07/10/2025 CLINICAL INDICATION: feeding tube placement TECHNIQUE: Supine radiograph of the abdomen. COMPARISON: None. FINDINGS: Limited vcyuc-[id number] abdominal radiograph for the purpose of locatingtube [...] Comment 07/10/2025 12:02 PM EDT HEALTHCARE LAB Cafeteria Clerk ID Zara Segovia 025 12:02 PM EDT HEALTHCARE LAB Device ID [id number] 07/10/2025 12:02 PM EDT HEALTHCARE LAB Specimen Type POC Arterial 07/10/2025 12:02 PM EDT HEALTHCARE LAB Blood Arterial blood specimen / Unknown 07/10/2025 12:00 PM EDT 07/10/2025 12:02 PM EDT us Luanne Crawford MD LAB POINT OF CARE TEST DOCKED DEVICE UNSOLICITED RESULTS Final Result Performing Organization Address City/[facility] Co de Phone Number HEALTHCARE LAB [address] [place] [address] * (ABNORMAL) POCT glucose meter (07/10/2025 9:50 AM EDT) [facility] POCT Glucose 134(H) 74 - 99 mg/dL [...] Comment 07/10/2025 9:52 AM EDT HEALTHCARE LAB Cafeteria Clerk ID Zara Segovia 025 9:52 AM EDT HEALTHCARE LAB Device ID [id number] 07/10/2025 9:52 AM EDT [facility] Specimen Type POC Arterial 07/10/2025 9:52 AM EDT HEALTHCARE LAB Blood Arterial blood specimen / Unknown 07/10/2025 9:50 AM EDT 07/10/2025 9:52 AM EDT us Luanne Crawford MD LAB POINT OF CARE TEST DOCKED DEVICE UNSOLICITED RESULTS Final Result Performing Organization Address City/[facility]/ZIP Co de Phone Number HEALTHCARE LAB [address] [place] [address] * ECG Adult (07/10/2025 8:42 AM EDT) EKG DIAGNOSIS CLASS Abnormal MUSE ECG Ventricular Rate 79 BPM MUSE ECG Atrial Rate 79 BPM MUSE ECG MA Interval 188 ms MUSE ECG QRSD Interval 90 ms MUSE ECG QT Interval 354 ms MUSE ECG QTC Interval 405 ms MUSE ECG P [place] 44 degrees MUSE ECG R [place] 17 degrees MUSE ECG T Wave [place] 27 degrees MUSE ECG Diagnosis Sinus rhythm [...] ORDERABLES Final Resu lt MUSE ECG * [facility]ICAL [facility]ARE, E/M 30-74 MINUTES (07/10/2025 8:15 [...] Comment 07/10/2025 9:22 AM EDT HEALTHCARE LAB Cafeteria Clerk ID Segovia, Symleandraa Asha 025 9:22 AM EDT [facility] Device ID [id number] 07/10/2025 9:22 AM EDT [facility] Specimen Type POC Arterial 07/10/2025 9:22 AM EDT [facility] Blood Arterial blood specimen / Unknown 07/10/2025 8:04 AM EDT 07/10/2025 9:22 AM EDT us Luanne Crawford MD LAB POINT OF CARE TEST DOCKED DEVICE UNSOLICITED RESULTS Final Result [facility] [address] [place] [address] * (ABNORMAL) POCT glucose meter (07/10/2025 6:04 [...] Comment 07/10/2025 6:05 AM EDT HEALTHCARE LAB Cafeteria Clerk ID Cheyanne Briceño 07/10/2025 6:05 AM EDT HEALTHCARE LAB Device ID [id number] 07/10/2025 6:05 AM EDT HEALTHCARE LAB Specimen Type POC Arterial 07/10/2025 6:05 AM EDT HEALTHCARE LAB Blood Arterial blood specimen / Unknown 07/10/2025 6:04 AM EDT 07/10/2025 6:05 AM EDT us Luanne Crawford MD LAB POINT OF CARE TEST DOCKED DEVICE UNSOLICITED RESULTS Final Result Performing Organization Address City/State/[facility] Co de Phone Number HEALTHCARE LAB [address] [place] [address] * (ABNORMAL) POCT glucose meter (07/10/2025 3:59 AM EDT) [facility] POCT Glucose 153(H) 74 - 99 mg/dL [...] Comment 07/10/2025 4:01 AM EDT HEALTHCARE LAB Cafeteria Clerk ID Cheyanne Briceño 07/10/2025 4:01 AM EDT HEALTHCARE LAB Device ID [id number] 07/10/2025 4:01 AM EDT HEALTHCARE LAB Specimen Type POC Arterial 07/10/2025 4:01 AM EDT HEALTHCARE LAB Blood Arterial blood specimen / Unknown 07/10/2025 3:59 AM EDT 07/10/2025 4:01 AM EDT us Luanne Crawford MD LAB POINT OF CARE TEST DOCKED DEVICE UNSOLICITED RESULTS Final Result Performing Organization Address City/[facility] Co de Phone Number HEALTHCARE LAB [address] [place] [address] * (ABNORMAL) POCT glucose meter (07/10/2025 3:01 [...] for testing. Comment 07/10/2025 3:03 AM EDT [facility] Cafeteria Clerk ID Cheyanne Briceño 07/10/2025 3:03 AM EDT [facility] Device ID [id number] 07/10/2025 3:03 AM EDT [facility] Specimen Type POC Arterial 07/10/2025 3:03 AM EDT [facility] Blood Arterial blood specimen / Unknown 07/10/2025 3:01 AM EDT 07/10/2025 3:03 AM EDT us Luanne Crawford MD LAB POINT OF CARE TEST DOCKED DEVICE UNSOLICITED RESULTS Final Result Performing Organization Address City/[facility] Co de Phone Number [facility] [address] [place] [address] * (ABNORMAL) POCT glucose meter (07/10/2025 2:03 [...] Comment 07/10/2025 2:04 AM EDT HEALTHCARE LAB Cafeteria Clerk ID Cheyanne Briceño 07/10/2025 2:04 AM EDT HEALTHCARE LAB Device ID [id number] 07/10/2025 2:04 AM EDT HEALTHCARE LAB Specimen Type POC Arterial 07/10/2025 2:04 AM EDT HEALTHCARE LAB Blood Arterial blood specimen / Unknown 07/10/2025 2:03 AM EDT 07/10/2025 2:04 AM EDT Luanne Crawford MD LAB POINT OF CARE TEST DOCKED DEVICE UNSOLICITED RESULTS Final Result Performing Organization Address City/[facility] Co de Phone Number HEALTHCARE LAB [address] [place] [address] * (ABNORMAL) POCT glucose meter (07/10/2025 12:59 AM EDT) [facility] POCT Glucose 158(H) 74 - 99 mg/dL [...] Comment 07/10/2025 1:00 AM EDT HEALTHCARE LAB Cafeteria Clerk ID Cheyanne Briceño 07/10/2025 1:00 AM EDT HEALTHCARE LAB Device ID [id number] 07/10/2025 1:00 AM EDT [facility] Specimen Type POC Arterial 07/10/2025 1:00 AM EDT HEALTHCARE LAB Blood Arterial blood specimen / Unknown 07/10/2025 12:59 AM EDT 07/10/2025 1:00 AM EDT us Luanne Crawford MD LAB POINT OF CARE TEST DOCKED DEVICE UNSOLICITED RESULTS Final Result Performing Organization Address City/[facility] Co de Phone Number HEALTHCARE LAB [address] [place] [address] * Phosphorus (07/10/2025 12:03 AM EDT) Phosphorus, Plasma 4.2 2.5 - 4.5 mg/dL 07/10/2025 12:40 AM EDT [facility] Blood Arterial blood specimen / Unknown Venipuncture / Unknown 07/10/2025 12:03 AM EDT 07/10/2025 12:10 AM EDT Luanne Crawford MD LAB BLOOD ORDERABLES Final Result Performing Organization Address City/[facility]/ZIP Co de Phone Number [facility] [address] [place] [address] * Magnesium, Plasma (07/10/2025 12:03 AM EDT) Magnesium, Plasma 2.1 1.9 - 2.4 mg/dL 07/10/2025 12:40 AM EDT [facility] Blood Arterial blood specimen / Unknown Venipuncture / Unknown 07/10/2025 12:03 AM EDT 07/10/2025 12:10 AM EDT Luanne Crawford MD LAB BLOOD ORDERABLES Final Result Performing Organization Address City/[facility]/ZIP Co de Phone Number [facility] [address] [place] [address] * (ABNORMAL) Basic Metabolic Panel, Plasma (07/10/2025 12:03 AM EDT) [facility] Signature Glucose, Plasma 155(H) 74 - 99 mg/dL 07/10/2025 12:40 AM EDT [facility] BUN, Plasma 22(H) 7 - 21 mg/dL 07/10/2025 12:40 AM EDT [facility] Creatinine, Plasma 1.25(H) 0.60 - 1.10 mg/dL 07/10/2025 12:40 AM EDT [facility] BUN/Creatinine Ratio 18 07/10/2025 12:40 AM EDT [facility] Sodium, Plasma 134(L) 136 - 145 mmol/L 07/10/2025 12:40 AM EDT [facility] Potassium, Plasma 3.7 3.6 - 4.9 mmol/L 07/10/2025 12:40 AM EDT [facility] Chloride, Plasma 101 97 - 107 mmol/L 07/10/2025 12:40 AM EDT [facility] CO2, Plasma 25 22 - 29 mmol/L 07/10/2025 12:40 AM EDT [facility] Anion Gap 8 6 - 16 mmol/L 07/10/2025 12:40 AM EDT [facility] Total Calcium, Plasma 9.3 8.9 - 10.2 mg/dL 07/10/2025 12:40 AM EDT [facility] eGFRcr 52.9 mL/min/1.7 3m*2 07/10/2025 12:40 AM EDT [facility] Comment:Reported eGFRcr in m L/min/1.73m2 is based the CKD-EPI 2020 equation that does not use a race coefficient. Blood Arterial blood specimen / Unknown Venipuncture / Unknown 07/10/2025 12:03 AM EDT 07/10/2025 12:10 AM EDT us Luanne Crawford MD LAB BLOOD ORDERABLES Final Result [facility] [address] [place] [address] * (ABNORMAL) CBC W/O Differential (07/10/2025 12:03 AM EDT) WBC Count 17.64(H) 3.70 - 10.30 10*3/uL LAB HEMATOLOGY METHOD 07/10/2025 12:22 AM EDT [facility] RBC Count 3.83(L) 3.90 - 5.20 10*6/uL LAB HEMATOLOGY METHOD 07/10/2025 12:22 AM EDT [facility] HGB 10.6(L) 11.2 - 15.7 g/dL LAB HEMATOLOGY METHOD 07/10/2025 12:22 AM EDT [facility] HCT 33.3(L) 34.0 - 45.0 % LAB HEMATOLOGY METHOD 07/10/2025 12:22 AM EDT [facility] Platelet Count 309 155 - 369 10*3/uL LAB HEMATOLOGY METHOD 07/10/2025 12:22 AM EDT [facility] MCV 87 79 - 98 fL LAB HEMATOLOGY METHOD 07/10/2025 12:22 AM EDT [facility] MCH 27.7 26.0 - 32.0 pg LAB HEMATOLOGY METHOD 07/10/2025 12:22 AM EDT [facility] MCHC 31.8 30.7 - 35.5 g/dL LAB HEMATOLOGY METHOD 07/10/2025 12:22 AM EDT [facility] RDW 17.9(H) 11.5 - 14.5 % LAB HEMATOLOGY METHOD 07/10/2025 12:22 AM EDT [facility] MPV 10.3 8.8 - 12.5 fL LAB HEMATOLOGY METHOD 07/10/2025 12:22 AM EDT [facility] nRBC 0.0 <=0.0 per 100 WBCs LAB HEMATOLOGY METHOD 07/10/2025 12:22 AM EDT [facility] Blood Arterial blood specimen / Unknown Venipuncture / Unknown 07/10/2025 12:03 AM EDT 07/10/2025 12:11 AM EDT us Luanne Crawford MD LAB BLOOD ORDERABLES Final Result [facility] [address] [place] [address] * (ABNORMAL) POCT glucose meter (07/10/2025 12:02 [...] Comment 07/10/2025 12:04 AM EDT HEALTHCARE LAB Cafeteria Clerk ID Cheyanne Briceño 07/10/2025 12:04 AM EDT HEALTHCARE LAB Device ID [id number] 07/10/2025 12:04 AM EDT HEALTHCARE LAB Specimen Type POC Arterial 07/10/2025 12:04 AM EDT HEALTHCARE LAB Blood Arterial blood specimen / Unknown 07/10/2025 12:02 AM EDT 07/10/2025 12:04 AM EDT Luanne Crawford MD LAB POINT OF CARE TEST DOCKED DEVICE UNSOLICITED RESULTS Final Result Performing Organization Address City/[facility]/ZIP Co de Phone Number HEALTHCARE LAB [address] [place] [address] * (ABNORMAL) POCT glucose meter (07/09/2025 10:01 [...] Comment 07/09/2025 10:04 PM EDT HEALTHCARE LAB Cafeteria Clerk ID Cheyanne Briceño 07/09/2025 10:04 PM EDT [facility] Device ID [id number] 07/09/2025 10:04 PM EDT HEALTHCARE LAB Specimen Type POC Arterial 07/09/2025 10:04 PM EDT HEALTHCARE LAB Blood Arterial blood specimen / Unknown 07/09/2025 10:01 PM EDT 07/09/2025 10:04 PM EDT us Luanne Crawford MD LAB POINT OF CARE TEST DOCKED DEVICE UNSOLICITED RESULTS Final Result Performing Organization Address City/[facility]/ZIP Co de Phone Number [facility] [address] [place] [address] * (ABNORMAL) POCT glucose meter (07/09/2025 8:09 [...] Comment 07/09/2025 8:11 PM EDT HEALTHCARE LAB Cafeteria Clerk ID Cheyanne Briceño 07/09/2025 8:11 PM EDT HEALTHCARE LAB Device ID [id number] 07/09/2025 8:11 PM EDT HEALTHCARE LAB Specimen Type POC Capillary 07/09/2025 8:11 PM EDT [facility]ALTH[facility]ARE LAB Blood Capillary blood specimen / Unknown 07/09/2025 8:09 PM EDT 07/09/2025 8:11 PM EDT Luanne Crawford MD LAB POINT OF CARE TEST DOCKED DEVICE UNSOLICITED RESULTS Final Result Performing Organization Address City/State/[facility] Co de Phone Number HEALTHCARE LAB [address] [place] [address] * (ABNORMAL) POCT glucose meter (07/09/2025 6:22 PM EDT) [facility] POCT Glucose 151(H) 74 - 99 mg/dL [...] Comment 07/09/2025 6:24 PM EDT HEALTHCARE LAB Cafeteria Clerk ID Jeana Bear 07/09/2025 6:24 PM EDT HEALTHCARE LAB Device ID [id number] 07/09/2025 6:24 PM EDT HEALTHCARE LAB Specimen Type POC Capillary 07/09/2025 6:24 PM EDT [facility]ALTHCARE LAB Blood Capillary blood specimen / Unknown 07/09/2025 6:22 PM EDT 07/09/2025 6:24 PM EDT us Luanne Crawford MD LAB POINT OF CARE TEST DOCKED DEVICE UNSOLICITED RESULTS Final Result [facility] [address] [place] [address] * (ABNORMAL) POCT glucose meter (07/09/2025 4:06 [...] for testing. Comment 07/09/2025 4:07 PM EDT [facility] Cafeteria Clerk ID Jeana Bear 07/09/2025 4:07 PM EDT [facility] Device ID [id number] 07/09/2025 4:07 PM EDT [facility] Specimen Type POC Capillary 07/09/2025 4:07 PM EDT [facility] Blood Capillary blood specimen / Unknown 07/09/2025 4:06 PM EDT 07/09/2025 4:07 PM EDT Luanne Crawford MD LAB POINT OF CARE TEST DOCKED DEVICE UNSOLICITED RESULTS Final Result Performing Organization Address City/[facility]/ZIP Co de Phone Number [facility] [address] [place] [address] * (ABNORMAL) Blood gas, arterial (07/09/2025 3:16 PM EDT) pH, Arterial 7.31(L) 7.35 - 7.45 LAB HEMATOLOGY METHOD 07/09/2025 3:40 PM EDT [facility] pCO2, Arterial 53(H) 35 - 48 mmHg LAB HEMATOLOGY METHOD 07/09/2025 3:40 PM EDT [facility] pO2, Arterial 153(H) 83 - 108 mmHg LAB HEMATOLOGY METHOD 07/09/2025 3:40 PM EDT [facility] SO2, Measured, Arterial 100(H) 94 - 98 % LAB HEMATOLOGY METHOD 07/09/2025 3:40 PM EDT [facility] Base Excess, Arterial -0.4 -2.0 - 3.0 mmol/L LAB HEMATOLOGY METHOD 07/09/2025 3:40 PM EDT [facility] [facility] Bicarbonate, Calculated, Arterial 26 22 - 26 mmol/L LAB HEMATOLOGY METHOD 07/09/2025 3:40 PM EDT [facility] Hematocrit, Whole Blood 30.6(L) 34.0 - 45.0 % LAB HEMATOLOGY METHOD 07/09/2025 3:40 PM EDT [facility] Sodium, Whole Blood 141 136 - 145 mmol/L LAB HEMATOLOGY METHOD 07/09/2025 3:40 PM EDT [facility] Potassium, Whole Blood 3.4(L) 3.6 - 4.9 mmol/L LAB HEMATOLOGY METHOD 07/09/2025 3:40 PM EDT [facility] Chloride, Whole Blood 107 97 - 107 mmol/L LAB HEMATOLOGY METHOD 07/09/2025 3:40 PM EDT [facility] Glucose, Whole Blood 141(H) 74 - 99 mg/dL LAB HEMATOLOGY METHOD 07/09/2025 3:40 PM EDT [facility] Ionized Calcium, Whole Blood 4.9 4.6 - 5.1 mg/dL LAB HEMATOLOGY METHOD 07/09/2025 3:40 PM EDT [facility] Lactate, Arterial, Whole Blood 0.9 0.5 - 1.6 mmol/L LAB HEMATOLOGY METHOD 07/09/2025 3:40 PM EDT [facility] Blood Arterial blood specimen / Unknown Arterial Line / Unknown 07/09/2025 3:16 PM EDT 07/09/2025 3:38 PM EDT us Luanne Crawford MD LAB BLOOD ORDERABLES Final Result [facility] [address] [place] [address] * (ABNORMAL) POCT glucose meter (07/09/2025 3:01 PM EDT) [facility] POCT Glucose 135(H) 74 - 99 mg/dL 07/09/2025 3:03 PM EDT [facility] Comment:Accuracy of a glucos [...] 07/09/2025 3:03 PM EDT [facility] Cafeteria Clerk ID Jeana Bear 07/09/2025 3:03 PM EDT [facility] Device ID [id number] 07/09/2025 3:03 PM EDT [facility] Specimen Type POC Capillary 07/09/2025 3:03 PM EDT [facility] Blood Capillary blood specimen / Unknown 07/09/2025 3:01 PM EDT 07/09/2025 3:03 PM EDT us Luanne Crawford MD LAB POINT OF CARE TEST DOCKED DEVICE UNSOLICITED RESULTS Final Result Performing Organization Address City/State/[facility] Co de Phone Number HEALTHCARE LAB [address] [place] [address] * (ABNORMAL) POCT glucose meter (07/09/2025 1:57 PM EDT) [facility] Signature POCT Glucose 115(H) 74 - 99 mg/dL [...] 07/09/2025 1:59 PM EDT [facility] Cafeteria Clerk ID Jeana Bear 07/09/2025 1:59 PM EDT [facility] Device ID [id number] 07/09/2025 1:59 PM EDT [facility] Specimen Type POC Capillary 07/09/2025 1:59 PM EDT [facility] Blood Capillary blood specimen / Unknown 07/09/2025 1:57 PM EDT 07/09/2025 1:59 PM EDT us Luanne Crawford MD LAB POINT OF CARE TEST DOCKED DEVICE UNSOLICITED RESULTS Final Result Performing Organization Address City/[facility]/ZIP Co de Phone Number [facility] [address] [place] [address] * Phosphorus (07/09/2025 1:21 PM EDT) Phosphorus, Plasma 4.2 2.5 - 4.5 mg/dL 07/09/2025 2:49 PM EDT [facility] Blood Arterial blood specimen / Unknown Arterial Line / Unknown 07/09/2025 1:21 PM EDT 07/09/2025 2:01 PM EDT Luanne Crawford MD LAB BLOOD ORDERABLES Final Result Performing Organization Address City/[facility]/ZIP Co de Phone Number [facility] [address] [place] [address] * Magnesium (07/09/2025 1:21 PM EDT) Magnesium, Plasma 2.3 1.9 - 2.4 mg/dL 07/09/2025 2:49 PM EDT [facility] Blood Arterial blood specimen / Unknown Arterial Line / Unknown 07/09/2025 1:21 PM EDT 07/09/2025 2:01 PM EDT us Luanne Crawford MD LAB BLOOD ORDERABLES Final Result Performing Organization Address City/[facility]/ZIP Co de Phone Number [facility] [address] [place] [address] * (ABNORMAL) Basic metabolic panel (07/09/2025 1:21 PM EDT) Glucose, Plasma 100(H) 74 - 99 mg/dL 07/09/2025 2:49 PM EDT [facility] BUN, Plasma 26(H) 7 - 21 mg/dL 07/09/2025 2:49 PM EDT [facility] Creatinine, Plasma 1.42(H) 0.60 - 1.10 mg/dL 07/09/2025 2:49 PM EDT [facility] BUN/Creatinine Ratio 18 07/09/2025 2:49 PM EDT [facility] Sodium, Plasma 140 136 - 145 mmol/L 07/09/2025 2:49 PM EDT [facility] Potassium, Plasma 3.7 3.6 - 4.9 mmol/L 07/09/2025 2:49 PM EDT [facility] Chloride, Plasma 104 97 - 107 mmol/L 07/09/2025 2:49 PM EDT [facility] CO2, Plasma 24 22 - 29 mmol/L 07/09/2025 2:49 PM EDT [facility] Anion Gap 12 6 - 16 mmol/L 07/09/2025 2:49 PM EDT [facility] Total Calcium, Plasma 9.1 8.9 - 10.2 mg/dL 07/09/2025 2:49 PM EDT [facility] eGFRcr 45.4 mL/min/1.7 3m*2 07/09/2025 2:49 PM EDT [facility] Comment:Reported eGFRcr in m L/min/1.73m2 is based the CKD-EPI 2020 equation that does not use a race coefficient. Blood Arterial blood specimen / Unknown Arterial Line / Unknown 07/09/2025 1:21 PM EDT 07/09/2025 2:01 PM EDT us Luanne Crawford MD LAB BLOOD ORDERABLES Final Result [facility] [address] [place] [address] * (ABNORMAL) POCT glucose meter (07/09/2025 1:20 PM EDT) POCT Glucose 103(H) 74 - 99 mg/dL 07/09/2025 1:22 PM EDT [facility] Comment:Accuracy of a glucos e result [...] 07/09/2025 1:22 PM EDT [facility] Cafeteria Clerk ID Jeana Bear 07/09/2025 1:22 PM EDT [facility] LAB Device ID [id number] 07/09/2025 1:22 PM EDT [facility] Specimen Type POC Arterial 07/09/2025 1:22 PM EDT [facility] Blood Arterial blood specimen / Unknown 07/09/2025 1:20 PM EDT 07/09/2025 1:22 PM EDT Luanne Crawford MD LAB POINT OF CARE TEST DOCKED DEVICE UNSOLICITED RESULTS Final Result Performing Organization Address City/[facility] Co de Phone Number [facility] [address] [place] [address] * (ABNORMAL) POCT glucose meter (07/09/2025 12:44 PM EDT) Pathologist [facility] POCT Glucose 110(H) 74 - 99 mg/dL [...] Comment 07/09/2025 12:45 PM EDT [facility] LAB Cafeteria Clerk ID Jeana Bear 07/09/2025 12:45 PM EDT [facility] LAB Device ID [id number] 07/09/2025 12:45 PM EDT [facility] Specimen Type POC Capillary 07/09/2025 12:45 PM EDT [facility] Blood Capillary blood specimen / Unknown 07/09/2025 12:44 PM EDT 07/09/2025 12:45 PM EDT Luanne Crawford MD LAB POINT OF CARE TEST DOCKED DEVICE UNSOLICITED RESULTS Final Result Performing Organization Address City/[facility]/ZIP Co de Phone Number [facility] [address] [place] [address] * (ABNORMAL) POCT glucose meter (07/09/2025 12:19 [...] Comment 07/09/2025 12:21 PM EDT [facility]ARE LAB Cafeteria Clerk ID Jeana Bear 07/09/2025 12:21 PM EDT [facility] LAB Device ID [id number] 07/09/2025 12:21 PM EDT [facility] Specimen Type POC Capillary 07/09/2025 12:21 PM EDT [facility] Blood Capillary blood specimen / Unknown 07/09/2025 12:19 PM EDT 07/09/2025 12:21 PM EDT us Luanne Crawford MD LAB POINT OF CARE TEST DOCKED DEVICE UNSOLICITED RESULTS Final Result Performing Organization Address City/[facility]/ZIP Co de Phone Number [facility] [address] [place] [address] * Blood Culture (Aerobic/Anaerobet Set) (07/09/2025 10:35 AM EDT) [facility] Culture No growth at day 5 KAROLINA 07/14/2025 12:02 PM EDT [facility] Blood Structure of antecubital vein / Unknown Venipuncture / Unknown 07/09/2025 10:35 AM EDT 07/09/2025 10:50 AM EDT us My Charles MD LAB MICROBIOLOGY - GENE RAL ORDERABLES Final Result [facility] [address] [place] [address] * Blood Culture (Aerobic/Anaerobet Set) (07/09/2025 10:35 AM EDT) [facility] Culture No growth at day 5 KAROLINA 07/14/2025 12:02 PM EDT [facility] Blood Structure of antecubital vein / Unknown Venipuncture / Unknown 07/09/2025 10:35 AM EDT 07/09/2025 10:50 AM EDT us My Charles MD LAB MICROBIOLOGY - GENE RAL ORDERABLES Final Result Performing Organization Address City/[facility]/ZIP Co de Phone Number [facility] [address] [place] [address] * (ABNORMAL) POCT glucose meter (07/09/2025 10:04 [...] Comment 07/09/2025 10:05 AM EDT [facility]ALTHCARE LAB Cafeteria Clerk ID Jeana Bear 07/09/2025 10:05 AM EDT HEALTHCARE LAB Device ID [id number] 07/09/2025 10:05 AM EDT [facility] Specimen Type POC Capillary 07/09/2025 10:05 AM EDT [facility] Blood Capillary blood specimen / Unknown 07/09/2025 10:04 AM EDT 07/09/2025 10:05 AM EDT us Luanne Crawford MD LAB POINT OF CARE TEST DOCKED DEVICE UNSOLICITED RESULTS Final Result [facility] [address] [place] [address] * Multi Drug Resistance Test (07/09/2025 9:46 AM EDT) Culture No growth at day 1 07/10/2025 11:58 AM EDT [facility] Swab (Nares and Leann Rectal) Non-blood Collection / Unknown 07/09/2025 9:46 AM EDT 07/09/2025 10:09 AM EDT Narrative [facility] - 07/10/2025 11:58 AM EDT This test was developed and its performance characteristics determined by the [facility]. Although the media is FDA-approved, it is not FDA-approved for all specimen types submitted. The FDA has determined that such clearance or approval is not necessary. This test is used for surveillance purposes. It should not be regarded as investigational or for research. The [facility] is certified under the Clinical Laboratory Improvement Amendments of 1988 (CLIA-88) as qualified to perform high complexity clinical laboratory testing. us Luanne Crawford MD LAB MICROBIOLOGY - GENERAL ORDERABLES Final Result [facility] [address] [place] [address] * (ABNORMAL) Blood gas, arterial (07/09/2025 8:47 AM EDT) pH, Arterial 7.30(L) 7.35 - 7.45 LAB HEMATOLOGY METHOD 07/09/2025 8:55 AM EDT [facility] pCO2, Arterial 53(H) 35 - 48 mmHg LAB HEMATOLOGY METHOD 07/09/2025 8:55 AM EDT [facility] pO2, Arterial 173(H) 83 - 108 mmHg LAB HEMATOLOGY METHOD 07/09/2025 8:55 AM EDT [facility] SO2, Measured, Arterial 98 94 - 98 % LAB HEMATOLOGY METHOD 07/09/2025 8:55 AM EDT [facility] Base Excess, Arterial -0.8 -2.0 - 3.0 mmol/L LAB HEMATOLOGY METHOD 07/09/2025 8:55 AM EDT [facility] Bicarbonate, Calculated, Arterial 26 22 - 26 mmol/L LAB HEMATOLOGY METHOD 07/09/2025 8:55 AM EDT [facility] Hematocrit, Whole Blood 27.3(L) 34.0 - 45.0 % LAB HEMATOLOGY METHOD 07/09/2025 8:55 AM EDT [facility] Sodium, Whole Blood 140 136 - 145 mmol/L LAB HEMATOLOGY METHOD 07/09/2025 8:55 AM EDT [facility] Potassium, Whole Blood 2.9(L) 3.6 - 4.9 mmol/L LAB HEMATOLOGY METHOD 07/09/2025 8:55 AM EDT [facility] Chloride, Whole Blood 106 97 - 107 mmol/L LAB HEMATOLOGY METHOD 07/09/2025 8:55 AM EDT [facility] Glucose, Whole Blood 155(H) 74 - 99 mg/dL LAB HEMATOLOGY METHOD 07/09/2025 8:55 AM EDT [facility] Ionized Calcium, Whole Blood 5.0 4.6 - 5.1 mg/dL LAB HEMATOLOGY METHOD 07/09/2025 8:55 AM EDT [facility] Lactate, Arterial, Whole Blood 1.4 0.5 - 1.6 mmol/L LAB HEMATOLOGY METHOD 07/09/2025 8:55 AM EDT [facility] Blood Arterial blood specimen / Unknown Arterial Line / Unknown 07/09/2025 8:47 AM EDT 07/09/2025 8:54 AM EDT Dorcas Hennessy MD LAB BLOOD ORDERABLES Final Resul t [facility] [address] [place] [address] * (ABNORMAL) POCT glucose meter (07/09/2025 8:01 [...] Comment 07/09/2025 8:03 AM EDT [facility]ALTH[facility]ARE LAB Cafeteria Clerk ID Jeana Bear 07/09/2025 8:03 AM EDT HEALTH[facility]ARE LAB Device ID [id number] 07/09/2025 8:03 AM EDT [facility]ALTH[facility]ARE LAB Specimen Type POC Capillary 07/09/2025 8:03 AM EDT [facility] Blood Capillary blood specimen / Unknown 07/09/2025 8:01 AM EDT 07/09/2025 8:03 AM EDT us Luanne Crawford MD LAB POINT OF CARE TEST DOCKED DEVICE UNSOLICITED RESULTS Final Result Performing Organization Address City/State/[facility] Co de Phone Number HEALTHCARE LAB [address] [place] [address] * MA CRITICAL CARE, E/M 30-74 MINUTES (07/09/2025 7:15 [...] - 99 mg/dL 07/09/2025 6:20 AM EDT [facility] Comment:Accuracy of a glucos e result [...] for testing. Comment 07/09/2025 6:20 AM EDT [facility] Cafeteria Clerk ID Cheyanne Briceño 07/09/2025 6:20 AM EDT HEALTHCARE LAB Device ID [id number] 07/09/2025 6:20 AM EDT HEALTHCARE LAB Specimen Type POC Arterial 07/09/2025 6:20 AM EDT [facility] Blood Arterial blood specimen / Unknown 07/09/2025 6:05 AM EDT 07/09/2025 6:20 AM EDT Luanne Crawford MD LAB POINT OF CARE TEST DOCKED DEVICE UNSOLICITED RESULTS Final Result Performing Organization Address City/[facility]/ZIP Co de Phone Number [facility] [address] [place] [address] * (ABNORMAL) Hemoglobin A1c (07/09/2025 4:57 AM EDT) Hemoglobin A1c 7.5(H) <5.7 % 07/09/2025 12:09 PM EDT [facility] Blood Arterial blood specimen / Unknown Venipuncture / Unknown 07/09/2025 4:57 AM EDT 07/09/2025 5:07 AM EDT Narrative [facility] - 07/09/2025 12:09 PM EDT HA1C Interpretive Data: Diagnosis of Diabetes: Diabetic > or = 6.5% Pre-diabetic 5.7 to 6.4% Non-diabetic < or = 5.6% Glycemic Targets for Type I and Type II Diabetics: Non- Adults <7.0% Adults <6.0% Children and Adolescents <7.5% Source: [place] [employer]. Standards of medical care in diabetes,2017. Diabetes Care.2017:40 (suppl 1):S1-S135. us Dorcas Hennessy MD LAB BLOOD [place] [address] * Phosphorus (07/09/2025 4:57 AM EDT) Phosphorus, Plasma 4.1 2.5 - 4.5 mg/dL 07/09/2025 5:35 AM EDT [facility] Blood Arterial blood specimen / Unknown Venipuncture / Unknown 07/09/2025 4:57 AM EDT 07/09/2025 5:06 AM EDT Luanne Crawford MD LAB BLOOD ORDERABLES Final Result Performing Organization Address [facility]/ZIP Co de Phone Number [facility] [address] [place] [address] * Magnesium, Plasma (07/09/2025 4:57 AM EDT) Magnesium, Plasma 2.2 1.9 - 2.4 mg/dL 07/09/2025 5:35 AM EDT [facility] Blood Arterial blood specimen / Unknown Venipuncture / Unknown 07/09/2025 4:57 AM EDT 07/09/2025 5:06 AM EDT Luanne Crawford MD LAB BLOOD ORDERABLES Final Result [facility] [address] [place] [address] * (ABNORMAL) Basic Metabolic Panel, Plasma (07/09/2025 4:57 AM EDT) Glucose, Plasma 235(H) 74 - 99 mg/dL 07/09/2025 5:35 AM EDT [facility] BUN, Plasma 30(H) 7 - 21 mg/dL 07/09/2025 5:35 AM EDT [facility] Creatinine, Plasma 1.58(H) 0.60 - 1.10 mg/dL 07/09/2025 5:35 AM EDT [facility] BUN/Creatinine Ratio 19 07/09/2025 5:35 AM EDT [facility] Sodium, Plasma 136 136 - 145 mmol/L 07/09/2025 5:35 AM EDT [facility] Potassium, Plasma 3.5(L) 3.6 - 4.9 mmol/L 07/09/2025 5:35 AM EDT [facility] Chloride, Plasma 101 97 - 107 mmol/L 07/09/2025 5:35 AM EDT [facility] CO2, Plasma 23 22 - 29 mmol/L 07/09/2025 5:35 AM EDT [facility] Anion Gap 12 6 - 16 mmol/L 07/09/2025 5:35 AM EDT [facility] Total Calcium, Plasma 9.2 8.9 - 10.2 mg/dL 07/09/2025 5:35 AM EDT [facility] eGFRcr 40.0 mL/min/1.7 3m*2 07/09/2025 5:35 AM EDT [facility] Comment:Reported eGFRcr in m L/min/1.73m2 is based the CKD-EPI 2020 equation that does not use a race coefficient. Blood Arterial blood specimen / Unknown Venipuncture / Unknown 07/09/2025 4:57 AM EDT 07/09/2025 5:06 AM EDT us Luanne Crawford MD LAB BLOOD ORDERABLES Final Result [facility] [address] [place] [address] * (ABNORMAL) CBC W/O Differential (07/09/2025 4:57 AM EDT) WBC Count 32.25(H) 3.70 - 10.30 10*3/uL LAB HEMATOLOGY METHOD 07/09/2025 5:15 AM EDT [facility] RBC Count 3.89(L) 3.90 - 5.20 10*6/uL LAB HEMATOLOGY METHOD 07/09/2025 5:15 AM EDT [facility] HGB 11.0(L) 11.2 - 15.7 g/dL LAB HEMATOLOGY METHOD 07/09/2025 5:15 AM EDT [facility] HCT 33.4(L) 34.0 - 45.0 % LAB HEMATOLOGY METHOD 07/09/2025 5:15 AM EDT [facility] Platelet Count 358 155 - 369 10*3/uL LAB HEMATOLOGY METHOD 07/09/2025 5:15 AM EDT [facility] MCV 86 79 - 98 fL LAB HEMATOLOGY METHOD 07/09/2025 5:15 AM EDT [facility] MCH 28.3 26.0 - 32.0 pg LAB HEMATOLOGY METHOD 07/09/2025 5:15 AM EDT [facility] MCHC 32.9 30.7 - 35.5 g/dL LAB HEMATOLOGY METHOD 07/09/2025 5:15 AM EDT [facility] RDW 17.4(H) 11.5 - 14.5 % LAB HEMATOLOGY METHOD 07/09/2025 5:15 AM EDT [facility] MPV 10.0 8.8 - 12.5 fL LAB HEMATOLOGY METHOD 07/09/2025 5:15 AM EDT [facility] nRBC 0.0 <=0.0 per 100 WBCs LAB HEMATOLOGY METHOD 07/09/2025 5:15 AM EDT [facility] Blood Arterial blood specimen / Unknown Venipuncture / Unknown 07/09/2025 4:57 AM EDT 07/09/2025 5:07 AM EDT Luanne Crawford MD LAB BLOOD ORDERABLES Final Result [facility] [address] [place] [address] * (ABNORMAL) POCT glucose meter (07/09/2025 4:03 [...] Comment 07/09/2025 4:05 AM EDT [facility]ALTHCARE LAB Cafeteria Clerk ID Cheyanne Briceño 07/09/2025 4:05 AM EDT HEALTH[facility]ARE LAB Device ID [id number] 07/09/2025 4:05 AM EDT [facility]ALTH[facility]ARE LAB Specimen Type POC Arterial 07/09/2025 4:05 AM EDT [facility] Blood Arterial blood specimen / Unknown 07/09/2025 4:03 AM EDT 07/09/2025 4:05 AM EDT us Luanne Crawford MD LAB POINT OF CARE TEST DOCKED DEVICE UNSOLICITED RESULTS Final Result [facility] [address] [place] [address] * XR Chest 1 View (07/09/2025 3:42 [...] for testing. Comment 07/09/2025 2:17 AM EDT [facility] Cafeteria Clerk ID Cheyanne Briceño 07/09/2025 2:17 AM EDT [facility] Device ID [id number] 07/09/2025 2:17 AM EDT [facility] Specimen Type POC Arterial 07/09/2025 2:17 AM EDT [facility] Blood Arterial blood specimen / Unknown 07/09/2025 2:15 AM EDT 07/09/2025 2:17 AM EDT us Luanne Crawford MD LAB POINT OF CARE TEST DOCKED DEVICE UNSOLICITED RESULTS Final Result Performing Organization Address City/State/[facility] Co de Phone Number HEALTHCARE LAB [address] [place] [address] * (ABNORMAL) Blood gas panel, arterial (07/09/2025 2:11 AM EDT) pH, Arterial 7.25(LL) 7.35 - 7.45 LAB HEMATOLOGY METHOD 07/09/2025 2:23 AM EDT [facility] pCO2, Arterial 56(H) 35 - 48 mmHg LAB HEMATOLOGY METHOD 07/09/2025 2:23 AM EDT [facility] pO2, Arterial 67(L) 83 - 108 mmHg LAB HEMATOLOGY METHOD 07/09/2025 2:23 AM EDT [facility] SO2, Measured, Arterial 91(L) 94 - 98 % LAB HEMATOLOGY METHOD 07/09/2025 2:23 AM EDT [facility] Base Excess, Arterial -2.7(L) -2.0 - 3.0 mmol/L LAB HEMATOLOGY METHOD 07/09/2025 2:23 AM EDT [facility] Bicarbonate, Calculated, Arterial 25 22 - 26 mmol/L LAB HEMATOLOGY METHOD 07/09/2025 2:23 AM EDT [facility] Hematocrit, Whole Blood 31.5(L) 34.0 - 45.0 % LAB HEMATOLOGY METHOD 07/09/2025 2:23 AM EDT [facility] Sodium, Whole Blood 135(L) 136 - 145 mmol/L LAB HEMATOLOGY METHOD 07/09/2025 2:23 AM EDT [facility] Potassium, Whole Blood 3.5(L) 3.6 - 4.9 mmol/L LAB HEMATOLOGY METHOD 07/09/2025 2:23 AM EDT [facility] Chloride, Whole Blood 103 97 - 107 mmol/L LAB HEMATOLOGY METHOD 07/09/2025 2:23 AM EDT [facility] Glucose, Whole Blood 279(H) 74 - 99 mg/dL LAB HEMATOLOGY METHOD 07/09/2025 2:23 AM EDT [facility] Ionized Calcium, Whole Blood 4.9 4.6 - 5.1 mg/dL LAB HEMATOLOGY METHOD 07/09/2025 2:23 AM EDT [facility] Lactate, Arterial, Whole Blood 1.2 0.5 - 1.6 mmol/L LAB HEMATOLOGY METHOD 07/09/2025 2:23 AM EDT [facility] Blood Arterial blood specimen / Unknown Arterial Puncture / Unknown 07/09/2025 2:11 AM EDT 07/09/2025 2:21 AM EDT us Luanne Crawford MD LAB BLOOD ORDERABLES Final Result [facility] [address] [place] [address] * (ABNORMAL) POCT glucose meter (07/09/2025 1:22 [...] 07/09/2025 1:24 AM EDT [facility] Cafeteria Clerk ID Cheyanne Briceño 07/09/2025 1:24 AM EDT [facility] Device ID [id number] 07/09/2025 1:24 AM EDT [facility] Specimen Type POC Arterial 07/09/2025 1:24 AM EDT [facility]ALTH[facility] Blood Arterial blood specimen / Unknown 07/09/2025 1:22 AM EDT 07/09/2025 1:24 AM EDT us Luanne Crawford MD LAB POINT OF CARE TEST DOCKED DEVICE UNSOLICITED RESULTS Final Result Performing Organization Address City/State/[facility] Co de Phone Number HEALTHCARE LAB [address] [place] [address] * (ABNORMAL) POCT glucose meter (07/09/2025 12:06 AM EDT) [facility] POCT Glucose 311(H) 74 - 99 [...] 07/09/2025 12:08 AM EDT [facility] Cafeteria Clerk ID Cheyanne Briceño 07/09/2025 12:08 AM EDT [facility] Device ID [id number] 07/09/2025 12:08 AM EDT [facility]ALTH[facility]ARE LAB Specimen Type POC Arterial 07/09/2025 12:08 AM EDT [facility] Blood Arterial blood specimen / Unknown 07/09/2025 12:06 AM EDT 07/09/2025 12:08 AM EDT us Luanne Crawford MD LAB POINT OF CARE TEST DOCKED DEVICE UNSOLICITED RESULTS Final Result Performing Organization Address City/[facility] Co de Phone Number [facility] [address] [place] [address] * APTT (07/08/2025 11:53 PM EDT) aPTT 25 25 - 35 sec LAB COAGULATION METHOD 07/09/2025 12:32 AM EDT [facility] Blood Venous blood specimen / Unknown Venipuncture / Unknown 07/08/2025 11:53 PM EDT 07/08/2025 11:59 PM EDT us Luanne Crawford MD LAB BLOOD ORDERABLES Final Result Performing Organization Address [facility] [place] [address] * (ABNORMAL) Protime-INR (07/08/2025 11:53 PM EDT) Prothrombin Time 15.2(H) 12.0 - 14.3 sec LAB COAGULATION METHOD 07/09/2025 12:32 AM EDT [facility] INR 1.2(H) 0.9 - 1.1 LAB COAGULATION METHOD 07/09/2025 12:32 AM EDT [facility] Blood Venous blood specimen / Unknown Venipuncture / Unknown 07/08/2025 11:53 PM EDT 07/08/2025 11:59 PM EDT Narrative [facility] - 07/09/2025 12:32 AM EDT OPTIMAL INR RANGES FOR PATIENT ON ORAL ANTICOAGULANT THERAPY Prevention of venous thromboembolism INR 2.0 to 3.0 In patients with heart disease: Atrial fibrillation INR 2.0 to 3.0 Valvular heart disease INR 2.0 to 3.0 Tissue heart valves INR 2.0 to 3.0 Mechanical prosthetic valves INR 2.5 to 3.5 Prevention of recurrent [place] INR 2.5 to 3.5 us Luanne Crawford MD LAB BLOOD ORDERABLES Final Result Performing Organization Address City/[facility]/ZIP Co de Phone Number [facility] [address] [place], [place] [id number] * Phosphorus, Plasma (07/08/2025 11:52 PM EDT) Phosphorus, Plasma 3.6 2.5 - 4.5 mg/dL 07/09/2025 12:27 AM EDT [facility] Blood Venous blood specimen / Unknown Venipuncture / Unknown 07/08/2025 11:52 PM EDT 07/08/2025 11:59 PM EDT Luanne Crawford MD LAB BLOOD ORDERABLES Final Result [facility] [address] [place] [address] * (ABNORMAL) Magnesium, Plasma (07/08/2025 11:52 PM EDT) Magnesium, Plasma 1.8(L) 1.9 - 2.4 mg/dL 07/09/2025 12:27 AM EDT [facility] Blood Venous blood specimen / Unknown Venipuncture / Unknown 07/08/2025 11:52 PM EDT 07/08/2025 11:59 PM EDT Luanne Crawford MD LAB BLOOD ORDERABLES Final Result [facility] [address] [place] [address] * (ABNORMAL) Basic Metabolic Panel, Plasma (07/08/2025 11:52 PM EDT) Glucose, Plasma 314(H) 74 - 99 mg/dL 07/09/2025 12:27 AM EDT [facility] BUN, Plasma 32(H) 7 - 21 mg/dL 07/09/2025 12:27 AM EDT [facility] Creatinine, Plasma 1.80(H) 0.60 - 1.10 mg/dL 07/09/2025 12:27 AM EDT [facility] BUN/Creatinine Ratio 18 07/09/2025 12:27 AM EDT [facility] Sodium, Plasma 136 136 - 145 mmol/L 07/09/2025 12:27 AM EDT [facility] Potassium, Plasma 3.6 3.6 - 4.9 mmol/L 07/09/2025 12:27 AM EDT [facility] Chloride, Plasma 100 97 - 107 mmol/L 07/09/2025 12:27 AM EDT [facility] CO2, Plasma 23 22 - 29 mmol/L 07/09/2025 12:27 AM EDT [facility] Anion Gap 13 6 - 16 mmol/L 07/09/2025 12:27 AM EDT [facility] Total Calcium, Plasma 8.9 8.9 - 10.2 mg/dL 07/09/2025 12:27 AM EDT [facility] eGFRcr 34.2 mL/min/1.7 3m*2 07/09/2025 12:27 AM EDT [facility] Comment:Reported eGFRcr in m L/min/1.73m2 is based the CKD-EPI 2020 equation that does not use a race coefficient. Blood Venous blood specimen / Unknown Venipuncture / Unknown 07/08/2025 11:52 PM EDT 07/08/2025 11:59 PM EDT us Luanne Crawford MD LAB BLOOD ORDERABLES Final Result [facility] [address] [place] [address] * (ABNORMAL) CBC W/O Differential (07/08/2025 11:52 PM EDT) WBC Count 22.50(H) 3.70 - 10.30 10*3/uL LAB HEMATOLOGY METHOD 07/09/2025 12:16 AM EDT [facility] RBC Count 3.60(L) 3.90 - 5.20 10*6/uL LAB HEMATOLOGY METHOD 07/09/2025 12:16 AM EDT [facility] HGB 10.0(L) 11.2 - 15.7 g/dL LAB HEMATOLOGY METHOD 07/09/2025 12:16 AM EDT [facility] HCT 30.8(L) 34.0 - 45.0 % LAB HEMATOLOGY METHOD 07/09/2025 12:16 AM EDT [facility] Platelet Count 273 155 - 369 10*3/uL LAB HEMATOLOGY METHOD 07/09/2025 12:16 AM EDT [facility] MCV 86 79 - 98 fL LAB HEMATOLOGY METHOD 07/09/2025 12:16 AM EDT [facility] MCH 27.8 26.0 - 32.0 pg LAB HEMATOLOGY METHOD 07/09/2025 12:16 AM EDT [facility] MCHC 32.5 30.7 - 35.5 g/dL LAB HEMATOLOGY METHOD 07/09/2025 12:16 AM EDT [facility] RDW 16.9(H) 11.5 - 14.5 % LAB HEMATOLOGY METHOD 07/09/2025 12:16 AM EDT [facility] MPV 10.3 8.8 - 12.5 fL LAB HEMATOLOGY METHOD 07/09/2025 12:16 AM EDT [facility] nRBC 0.0 <=0.0 per 100 WBCs LAB HEMATOLOGY METHOD 07/09/2025 12:16 AM EDT [facility] Blood Venous blood specimen / Unknown Venipuncture / Unknown 07/08/2025 11:52 PM EDT 07/08/2025 11:59 PM EDT us Luanne Crawford MD LAB BLOOD ORDERABLES Final Result [facility] [address] [place] [address] * Richie auris Surveillance by PCR (07/08/2025 11:50 PM EDT) Richie auris PCR Result Not Detected Not Detected 07/09/2025 11:26 AM EDT [facility] Swab (Axilla and Groin) Non-blood Collection / Unknown 07/08/2025 11:50 PM EDT 07/09/2025 12:17 AM EDT Narrative [facility] - 07/09/2025 11:26 AM EDT This PCR assay was developed and its performance characteristics determined by [facility] as appropriate for clinical purposes. This assay has not been cleared or approved by the FDA, but is performed in a CLIA regulated laboratory that is qualified to perform high-complexity testing. Luanne Crawford MD LAB MICROBIOLOGY - GENERAL ORDERABLES Final Result Performing Organization Address [facility] Co de Phone Number [facility] [address] [place] [address] * Multi Drug Resistance Test (07/08/2025 11:50 PM EDT) Culture No growth at day 1 07/10/2025 5:45 AM EDT [facility] Swab (Nares and Leann Rectal) Non-blood Collection / Unknown 07/08/2025 11:50 PM EDT 07/09/2025 12:17 AM EDT Narrative [facility] - 07/10/2025 5:45 AM EDT This test was developed and its performance characteristics determined by the [facility]. Although the media is FDA-approved, it is not FDA-approved for all specimen types submitted. The FDA has determined that such clearance or approval is not necessary. This test is used for surveillance purposes. It should not be regarded as investigational or for research. The [facility] is certified under the Clinical Laboratory Improvement Amendments of 1988 (CLIA-88) as qualified to perform high complexity clinical laboratory testing. Luanne Crawford MD LAB MICROBIOLOGY - GENERAL ORDERABLES Final Result Performing Organization Address [facility] de Phone Number [facility] [address] [place] [address] * (ABNORMAL) Blood gas, arterial (07/08/2025 11:50 PM EDT) pH, Arterial 7.27(L) 7.35 - 7.45 LAB HEMATOLOGY METHOD 07/09/2025 12:00 AM EDT [facility] pCO2, Arterial 53(H) 35 - 48 mmHg LAB HEMATOLOGY METHOD 07/09/2025 12:00 AM EDT [facility] pO2, Arterial 114(H) 83 - 108 mmHg LAB HEMATOLOGY METHOD 07/09/2025 12:00 AM EDT [facility] SO2, Measured, Arterial 99(H) 94 - 98 % LAB HEMATOLOGY METHOD 07/09/2025 12:00 AM EDT [facility] Base Excess, Arterial -3.1(L) -2.0 - 3.0 mmol/L LAB HEMATOLOGY METHOD 07/09/2025 12:00 AM EDT [facility] Bicarbonate, Calculated, Arterial 24 22 - 26 mmol/L LAB HEMATOLOGY METHOD 07/09/2025 12:00 AM EDT [facility] Hematocrit, Whole Blood 31.0(L) 34.0 - 45.0 % LAB HEMATOLOGY METHOD 07/09/2025 12:00 AM EDT [facility] Sodium, Whole Blood 134(L) 136 - 145 mmol/L LAB HEMATOLOGY METHOD 07/09/2025 12:00 AM EDT [facility] Potassium, Whole Blood 3.5(L) 3.6 - 4.9 mmol/L LAB HEMATOLOGY METHOD 07/09/2025 12:00 AM EDT [facility] Chloride, Whole Blood 101 97 - 107 mmol/L LAB HEMATOLOGY METHOD 07/09/2025 12:00 AM EDT [facility] Glucose, Whole Blood 315(H) 74 - 99 mg/dL LAB HEMATOLOGY METHOD 07/09/2025 12:00 AM EDT [facility] Ionized Calcium, Whole Blood 5.1 4.6 - 5.1 mg/dL LAB HEMATOLOGY METHOD 07/09/2025 12:00 AM EDT [facility] Lactate, Arterial, Whole Blood 1.7(H) 0.5 - 1.6 mmol/L LAB HEMATOLOGY METHOD 07/09/2025 12:00 AM EDT [facility] Blood Arterial blood specimen / Unknown Arterial Puncture / Unknown 07/08/2025 11:50 PM EDT 07/08/2025 11:59 PM EDT us Richard Betts CRNA LAB BLOOD ORDERABLES Sarah l Result [facility] [address] [place] [address] * (ABNORMAL) POCT glucose meter (07/08/2025 11:49 PM EDT) POCT Glucose 316(H) 74 - 99 mg/dL 07/08/2025 11:50 PM EDT [facility] Comment:Accuracy of [...] Comment 07/08/2025 11:50 PM EDT [facility] Cafeteria Clerk ID Mary Cotto 07/08/2025 11:50 PM EDT [facility] Device ID [id number] 07/08/2025 11:50 PM EDT [facility] Specimen Type POC Arterial 07/08/2025 11:50 PM EDT [facility] Blood Arterial blood specimen / Unknown 07/08/2025 11:49 PM EDT 07/08/2025 11:50 PM EDT us Luanne Crawford MD LAB POINT OF CARE TEST DOCKED DEVICE UNSOLICITED RESULTS Final Result [facility] [address] [place] [address] * (ABNORMAL) Tissue Culture and Gram Stain (07/08/2025 10:48 PM EDT) Culture Light Growth 07/13/2025 1:13 PM EDT [facility] Culture 1+ Schaalia turicensis (formerly known as Actinomyces turicensis)(A) 07/13/2025 1:13 PM EDT [facility] Comment: The organism value for this result has been updated. These results have been appended to the previously preliminary verified report. This is a corrected result. Previous organism was Gram positive anthony on 07/11/2025 at 1052 EDT. Culture 1+ Staphylococcus hominis(A) 07/13/2025 1:13 PM EDT [facility] Comment: This isolate has been identified using the FDA Approved [employer] CA System The organism value for this result has been updated. These results have been appended to the previously preliminary verified report. Gram Stain Result Few Polymorphonuclear leukocytes(A) 07/13/2025 1:13 PM EDT [facility] Gram Stain Result Numerous Gram negative rods(A) 07/13/2025 1:13 PM EDT [facility] Gram Stain Result Few Gram positive cocci in pairs(A) 07/13/2025 1:13 PM EDT [facility] Tissue Topography unknown / Unknown 07/08/2025 10:48 PM EDT 07/09/2025 12:14 AM EDT Comment:Pre-op diagnosis: Necrotizing fasciitis (CMS/HCC) [M72.6] Luanne Crawford MD LAB MICROBIOLOGY - GENERAL ORDERABLES Final Result [facility] [address] [place] [address] * Transfuse fresh frozen plasma (07/08/2025 10:35 PM EDT) Richard Betts CRNA BLOOD TRANSFUSION ORDERAB LES Final Result * Transfuse RBC (07/08/2025 10:29 PM EDT) Richard Betts ANATOMIC PATHOLOGIST BLOOD TRANSFUSION ORDERAB LES Final Result * (ABNORMAL) Blood gas panel, arterial (07/08/2025 10:08 PM EDT) pH, Arterial 7.28(L) 7.35 - 7.45 LAB HEMATOLOGY METHOD 07/08/2025 10:15 PM EDT [facility] pCO2, Arterial 50(H) 35 - 48 mmHg LAB HEMATOLOGY METHOD 07/08/2025 10:15 PM EDT [facility] pO2, Arterial 121(H) 83 - 108 mmHg LAB HEMATOLOGY METHOD 07/08/2025 10:15 PM EDT [facility] SO2, Measured, Arterial 99(H) 94 - 98 % LAB HEMATOLOGY METHOD 07/08/2025 10:15 PM EDT [facility] Base Excess, Arterial -3.6(L) -2.0 - 3.0 mmol/L LAB HEMATOLOGY METHOD 07/08/2025 10:15 PM EDT [facility] Bicarbonate, Calculated, Arterial 23 22 - 26 mmol/L LAB HEMATOLOGY METHOD 07/08/2025 10:15 PM EDT [facility] Hematocrit, Whole Blood 29.9(L) 34.0 - 45.0 % LAB HEMATOLOGY METHOD 07/08/2025 10:15 PM EDT [facility] Sodium, Whole Blood 133(L) 136 - 145 mmol/L LAB HEMATOLOGY METHOD 07/08/2025 10:15 PM EDT [facility] Potassium, Whole Blood 3.5(L) 3.6 - 4.9 mmol/L LAB HEMATOLOGY METHOD 07/08/2025 10:15 PM EDT [facility] Chloride, Whole Blood 101 97 - 107 mmol/L LAB HEMATOLOGY METHOD 07/08/2025 10:15 PM EDT [facility] Glucose, Whole Blood 351(H) 74 - 99 mg/dL LAB HEMATOLOGY METHOD 07/08/2025 10:15 PM EDT [facility] Ionized Calcium, Whole Blood 4.5(L) 4.6 - 5.1 mg/dL LAB HEMATOLOGY METHOD 07/08/2025 10:15 PM EDT [facility] Lactate, Arterial, Whole Blood 2.1(H) 0.5 - 1.6 mmol/L LAB HEMATOLOGY METHOD 07/08/2025 10:15 PM EDT [facility] Blood Arterial blood specimen / Unknown 07/08/2025 10:08 PM EDT 07/08/2025 10:14 PM EDT Comment:Pre-op diagnosis: Necrotizing fasciitis (CMS/HCC) [M72.6] us Luanne Crawford MD LAB BLOOD ORDERABLES Final Result Performing Organization Address City/State/[facility] Co de Phone Number [facility] [address] [place] [address] * Surgical Pathology Exam (07/08/2025 10:07 PM EDT) Case Report Surgical Pathology Case: [id number] Authorizing Provider: Luanne Crawford MD Collected: 07/08/20256 Ordering Location: [facility] A OPERATING ROOM Received: 07/09/2025 0753 Pathologist: Boaz Fernandez MD Specimens: A) - Other (specify site), saphenous vein B) - Other (specify site), right leg 07/10/2025 3:45 PM EDT [facility] Final Diagnosis A. SAPHENOUS VEIN SEGMENT, REMOVAL: - SCLEROTIC VEIN WITH ADVENTITIAL INFLAMMATION. B. RIGHT LEG TISSUE DEBRIDEMENT: - ACUTE NECROTIZING FASCIITIS OF SKIN AND SOFT TISSUE. 07/10/2025 3:45 PM EDT [facility] at 1545 EDT Clinical Information Necrotizing fasciitis; post recent boil self popped wound. 50 y.o. female with PMH of DM, hidradenitis supparativa, current smoker (1.5 ppd), UTI, depression, anxiety, asthma, HLD, Celiac disease, 07/10/2025 3:45 PM EDT [facility] Gross Description A. SAPHENOUS VEIN Specimen is received fresh and placed in formalin labeled saphenous vein. Received is a segment of vessel that measures 8.5 cm in length and up to 0.7 cm in diameter. Specimen is sectioned to reveal a pinpoint lumen with dried blood. Scrap Separator sections are taken and submitted in cassette A1. Cold Time: 8h 56m Abhishek Baptiste MD B. RIGHT LEG Specimen is received fresh labeled right leg. Received are numerous fragments of skin and underlying soft tissue that measure in aggregate 25.0 x 25.0 x 7.5 cm. Scattered areas of skin and soft tissue notable for being green-black, foul-smelling and extensively necrotic. Scrap Separator sections are taken and submitted in cassettes B1-B2. Abhishek Baptiste MD 07/10/2025 3:45 PM EDT [facility] Note: A resident was involved in the service. I attest I examined the relevant preparations for the specimens and confirmed the diagnosis or interpretation. 07/10/2025 3:45 PM EDT [facility] Tissue Topography unknown / Unknown 07/08/2025 10:07 PM EDT 07/09/2025 7:40 AM EDT Comment:Pre-op diagnosis: Necrotizing fasciitis (CMS/HCC) [M72.6] Tissue specimen (specimen) Topography unknown / Unknown 07/08/2025 10:49 PM EDT 07/09/2025 7:40 AM EDT Comment:Pre-op diagnosis: Necrotizing fasciitis (CMS/HCC) [M72.6] Luanne Crawford MD LAB PATHOLOGY ORDERABLES F inal Result [facility] [address] [place] [address] * Transfuse fresh frozen plasma (07/08/2025 10:04 PM EDT) Richard N Yongbang ANATOMIC PATHOLOGIST BLOOD TRANSFUSION ORDERAB LES Final Result * Transfuse fresh frozen plasma: 1 Units (07/08/2025 10:04 PM EDT) us Richard N Yongbang ANATOMIC PATHOLOGIST BLOOD TRANSFUSION ORDERAB LES Final Result * Transfuse RBC (07/08/2025 9:41 PM EDT) Richard N Yongbang ANATOMIC PATHOLOGIST BLOOD TRANSFUSION ORDERAB LES Final Result * Transfuse RBC: 1 Units (07/08/2025 9:41 PM EDT) Richard N Yongbang ANATOMIC PATHOLOGIST BLOOD TRANSFUSION ORDERAB LES Final Result * Prepare Fresh Frozen Plasma: 2 Units (07/08/2025 9:24 PM EDT) Product Code [id number] CH BLOO D BANK Dispense Status Transfused BLOOD BANK Blood Expiration Date [id number] BLOOD BANK Unit Number [id number] B LOOD BANK Product Blood Type 5100 BLOOD BANK Blood Type O+ BLOOD BANK Product Code [id number] CH BLOO D BANK Dispense Status Transfused BLOOD BANK Blood Expiration Date [id number] BLOOD BANK Unit Number [id number] B LOOD BANK Product Blood Type 5100 BLOOD BANK Blood Type O+ BLOOD BANK Blood Venous blood specimen / Unknown Richard N Yongbang ANATOMIC PATHOLOGIST BLOOD BANK PRODUCT ORDERA BLES Final Result BLOOD BANK [address] [place] [address], [place] * Prepare Leukocyte Reduced RBC: 2 Units (07/08/2025 9:23 PM EDT) Product Code [id number] BLOO D BANK Dispense Status Transfused CH BLOOD BANK Blood Expiration Date BLOOD BANK Unit Number [id number] CH B LOOD BANK Product Blood Type 5100 CH BLOOD BANK Blood Type O+ CH BLOOD BANK Crossmatch Compatible CH BLOOD BANK Product Code [id number] CH BLOO D BANK Dispense Status Transfused CH BLOOD BANK Blood Expiration Date BLOOD BANK Unit Number [id number] CH B LOOD BANK Product Blood Type 5100 CH BLOOD BANK Blood Type O+ CH BLOOD BANK Crossmatch Compatible BLOOD BANK Other us Richard Betts CRNA BLOOD BANK PRODUCT ORDERA BLES Final Result BLOOD BANK [address] [place] [address], * (ABNORMAL) Abscess Culture and Gram Stain (07/08/2025 9:06 PM EDT) Culture Light Growth 07/13/2025 1:13 PM EDT [facility] Culture 1+ Mixed skin silvestre(A) 07/13/2025 1:13 PM EDT [facility] Comment: The organism value for [...] as Actinomyces turicensis)(A) 07/13/2025 1:13 PM EDT [facility] Comment: This result was determined by MALDI tof Mass spectrometry. This assay was developed and its performance characteristics determined by [facility] as appropriate for clinical purposes. [...] Gram positive cocci(A) 07/13/2025 1:13 PM EDT [facility] Gram Stain Result Few Gram variable rods(A) 07/13/2025 1:13 PM EDT [facility] Gram Stain Result Moderate Gram positive rods(A) 07/13/2025 1:13 PM EDT [facility] Gram Stain Result Numerous Gram negative rods(A) 07/13/2025 1:13 PM EDT [facility] Gram Stain Result Numerous Gram negative coccobacilli(A) 07/13/2025 1:13 PM EDT [facility] Gram Stain Result Moderate Polymorphonuclear leukocytes(A) 07/13/2025 1:13 PM EDT [facility] Swab Topography unknown / Unknown 07/08/2025 9:06 PM EDT 07/08/2025 9:15 PM EDT Comment:Pre-op diagnosis: Necrotizing fasciitis (CMS/HCC) [M72.6] us Luanne Crawford MD LAB MICROBIOLOGY - GENERAL ORDERABLES Final Result [facility] [address] [place] [address] * (ABNORMAL) POCT arterial blood gas gem (07/08/2025 8:51 PM EDT) pH, Arterial 7.28(L) 7.35 - 7.45 07/08/2025 8:53 PM EDT [facility] pCO2, Arterial 53(H) 35 - 48 mm Hg 07/08/2025 8:53 PM EDT [facility] pO2, Arterial 152(H) 83 - 108 mm Hg 07/08/2025 8:53 PM EDT [facility] SO2, Arterial 99(H) 94 - 98 % 07/08/2025 8:53 PM EDT [facility] Base Excess, Arterial -2.3(L) -2 - 3 mmol/L 07/08/2025 8:53 PM EDT [facility] HCO3, Arterial 24.9 22 - 26 mmol/L 07/08/2025 8:53 PM EDT [facility] Total Hemoglobin, Arterial, Whole Blood 10.9(L) 11.2 - 15.7 g/dL 07/08/2025 8:53 PM EDT [facility] Hematocrit, Arterial 33.0(L) 34.0 - 45.0 % 07/08/2025 8:53 PM EDT [facility] Sodium, Arterial 131(L) 136 - 145 mmol/L 07/08/2025 8:53 PM EDT [facility] Potassium, Arterial 3.8 3.6 - 4.9 mmol/L 07/08/2025 8:53 PM EDT [facility] Chloride, Whole Blood 98 97 - 107 mmol/L 07/08/2025 8:53 PM EDT [facility] Glucose, Arterial 418(H) 74 - 99 mg/dL 07/08/2025 8:53 PM EDT [facility] Ionized Calcium, Arterial 4.9 4.6 - 5.1 mg/dL 07/08/2025 8:53 PM EDT [facility] Lactate, Arterial 1.6 0.5 - 1.6 mmol/L 07/08/2025 8:53 PM EDT [facility] Body Temperature 37.0 Celsius 07/08/2025 8:53 PM EDT [facility] pH, Temp Corrected, Arterial 7.28(L) 7.35 - 7.45 07/08/2025 8:53 PM EDT [facility] pCO2, Temp Corrected, Arterial 53(H) 35 - 48 mm Hg 07/08/2025 8:53 PM EDT [facility] pO2, Temp Corrected, Arterial 152(H) 83 - 108 mm Hg 07/08/2025 8:53 PM EDT [facility] Cafeteria Clerk ID Yadi Goel 07/08/2025 8:53 PM EDT [facility] Blood, Arterial Whole blood specimen / Unknown 07/08/2025 8:51 PM EDT 07/08/2025 8:53 PM EDT us Luanne Crawford MD LAB POINT OF CARE TEST DOCKED DEVICE UNSOLICITED RESULTS Final Result [facility] [address] [place] [address] * ED HIV 1/2 Antibody/Antigen Screen w/Reflex to HIV 1/2 Differentiation (07/08/2025 6:14 PM EDT) HIV 1 & 2 Antibody/Antigen Screen Non Reactive Non Reactive 07/08/2025 7:12 PM EDT [facility] Comment:Screening for HIV 1 & 2 antibodies, and P24 antigen is NONREACTIVE. No confirmatory testing is required. Blood Venous blood specimen / Unknown Venipuncture / Unknown 07/08/2025 6:14 PM EDT 07/08/2025 6:30 PM EDT My Charles MD LAB BLOOD ORDERABLES Fi nal Result Performing Organization Address City/[facility] Co de Phone Number [facility] [address] [place] [address] * Hepatitis C Antibody - ED (07/08/2025 6:14 PM EDT) Pathologist [facility] Hepatitis C Antibody Negative Negative 07/08/2025 7:12 PM EDT [facility] Blood Venous blood specimen / Unknown Venipuncture / Unknown 07/08/2025 6:14 PM EDT 07/08/2025 6:30 PM EDT My Charles MD LAB BLOOD ORDERABLES Fi nal Result Performing Organization Address [facility] [place] [address] * (ABNORMAL) C-Reactive protein (07/08/2025 6:14 PM EDT) [facility] CRP, Plasma 462.2(H) <=8.0 mg/L 07/08/2025 7:18 PM EDT [facility] Blood Venous blood specimen / Unknown Venipuncture / Unknown 07/08/2025 6:14 PM EDT 07/08/2025 6:23 PM EDT Narrative [facility] - 07/08/2025 7:18 PM EDT This CRP test is appropriate for assessment of infection, systemic inflammation and/or tissue injury. To assess cardiovascular disease risk order high sensitivity CRP (CRPH). My Charles MD LAB BLOOD ORDERABLES Fi nal Result Performing Organization Address City/[facility] Co de Phone Number [facility] [address] [place] [address] * (ABNORMAL) Lactic acid, venous (07/08/2025 6:14 PM EDT) Lactate, Venous, Whole Blood 2.6(H) 0.5 - 2.2 mmol/L LAB HEMATOLOGY METHOD 07/08/2025 6:29 PM EDT [facility] Blood Venous blood specimen / Unknown Venipuncture / Unknown 07/08/2025 6:14 PM EDT 07/08/2025 6:23 PM EDT My Charles MD LAB BLOOD ORDERABLES Fi nal Result [facility] [address] [place] [address] * Type and screen (07/08/2025 6:14 PM [...] BLOOD BANK TEST ORD ERABLES Final Result BLOOD BANK [address] [place] [address], [place] * (ABNORMAL) PT-INR (07/08/2025 6:14 PM EDT) Prothrombin Time 15.3(H) 12.0 - 14.3 sec 07/08/2025 6:56 PM EDT [facility] INR 1.2(H) 0.9 - 1.1 07/08/2025 6:56 PM EDT [facility] Blood Venous blood specimen / Unknown Venipuncture / Unknown 07/08/2025 6:14 PM EDT 07/08/2025 6:23 PM EDT Narrative [facility] - 07/08/2025 6:56 PM EDT OPTIMAL INR RANGES FOR PATIENT ON ORAL ANTICOAGULANT THERAPY Prevention of venous thromboembolism INR 2.0 to 3.0 In patients with heart disease: Atrial fibrillation INR 2.0 to 3.0 Valvular heart disease INR 2.0 to 3.0 Tissue heart valves INR 2.0 to 3.0 Mechanical prosthetic valves INR 2.5 to 3.5 Prevention of recurrent [place] INR 2.5 to 3.5 us My Charles MD LAB BLOOD ORDERABLES Fi nal Result [facility] [address] [place] [address] * (ABNORMAL) CBC w/diff (07/08/2025 6:14 PM EDT) WBC Count 26.15(H) 3.70 - 10.30 10*3/uL LAB HEMATOLOGY METHOD 07/08/2025 9:04 PM EDT [facility] RBC Count 3.97 3.90 - 5.20 10*6/uL LAB HEMATOLOGY METHOD 07/08/2025 9:04 PM EDT [facility] HGB 10.9(L) 11.2 - 15.7 g/dL LAB HEMATOLOGY METHOD 07/08/2025 9:04 PM EDT [facility] HCT 33.6(L) 34.0 - 45.0 % LAB HEMATOLOGY METHOD 07/08/2025 9:04 PM EDT [facility] Platelet Count 329 155 - 369 10*3/uL LAB HEMATOLOGY METHOD 07/08/2025 9:04 PM EDT [facility] MCV 85 79 - 98 fL LAB HEMATOLOGY METHOD 07/08/2025 9:04 PM EDT [facility] MCH 27.5 26.0 - 32.0 pg LAB HEMATOLOGY METHOD 07/08/2025 9:04 PM EDT [facility] MCHC 32.4 30.7 - 35.5 g/dL LAB HEMATOLOGY METHOD 07/08/2025 9:04 PM EDT [facility] RDW 17.3(H) 11.5 - 14.5 % LAB HEMATOLOGY METHOD 07/08/2025 9:04 PM EDT [facility] MPV 10.1 8.8 - 12.5 fL LAB HEMATOLOGY METHOD 07/08/2025 9:04 PM EDT [facility] nRBC 0.0 <=0.0 per 100 WBCs LAB HEMATOLOGY METHOD 07/08/2025 9:04 PM EDT [facility] Differential Type Automated LAB HEMATOLOGY METHOD 07/08/2025 9:04 PM EDT [facility] Neutrophils % 91 % LAB HEMATOLOGY METHOD 07/08/2025 9:04 PM EDT [facility] Lymphocytes % 4 % LAB HEMATOLOGY METHOD 07/08/2025 9:04 PM EDT [facility] Monocytes % 4 % LAB HEMATOLOGY METHOD 07/08/2025 9:04 PM EDT [facility] Eosinophils % 0 % LAB HEMATOLOGY METHOD 07/08/2025 9:04 PM EDT [facility] Basophils % 0 % LAB HEMATOLOGY METHOD 07/08/2025 9:04 PM EDT [facility] Immature Granulocytes % 1 % LAB HEMATOLOGY METHOD 07/08/2025 9:04 PM EDT [facility] Neutrophils Absolute 23.61(H) 1.60 - 6.10 10*3/uL LAB HEMATOLOGY METHOD 07/08/2025 9:04 PM EDT [facility] Lymphocytes Absolute 1.15(L) 1.20 - 3.90 10*3/uL LAB HEMATOLOGY METHOD 07/08/2025 9:04 PM EDT [facility] Monocytes Absolute 0.98(H) 0.30 - 0.90 10*3/uL LAB HEMATOLOGY METHOD 07/08/2025 9:04 PM EDT [facility] Eosinophils Absolute 0.04 0.00 - 0.50 10*3/uL LAB HEMATOLOGY METHOD 07/08/2025 9:04 PM EDT [facility] Basophils Absolute 0.09 0.00 - 0.10 10*3/uL LAB HEMATOLOGY METHOD 07/08/2025 9:04 PM EDT [facility] Immature Granulocytes Absolute 0.25(H) 0.00 - 0.06 10*3/uL LAB HEMATOLOGY METHOD 07/08/2025 9:04 PM EDT [facility] Blood Venous blood specimen / Unknown Venipuncture / Unknown 07/08/2025 6:14 PM EDT 07/08/2025 6:23 PM EDT Narrative [facility] - 07/08/2025 9:04 PM EDT Therapeutic decision making should be based on absolute values, rather than percentages. us My Charles MD LAB BLOOD ORDERABLES Fi nal Result [facility] [address] [place] [address] * (ABNORMAL) CMP (07/08/2025 6:14 PM EDT) Glucose, Plasma 411(H) 74 - 99 mg/dL 07/08/2025 7:18 PM EDT [facility] BUN, Plasma 33(H) 7 - 21 mg/dL 07/08/2025 7:18 PM EDT [facility] Creatinine, Plasma 1.99(H) 0.60 - 1.10 mg/dL 07/08/2025 7:18 PM EDT [facility] BUN/Creatinine Ratio 17 07/08/2025 7:18 PM EDT [facility] Sodium, Plasma 131(L) 136 - 145 mmol/L 07/08/2025 7:18 PM EDT [facility] Potassium, Plasma 4.0 3.6 - 4.9 mmol/L 07/08/2025 7:18 PM EDT [facility] Chloride, Plasma 93(L) 97 - 107 mmol/L 07/08/2025 7:18 PM EDT [facility] CO2, Plasma 22 22 - 29 mmol/L 07/08/2025 7:18 PM EDT [facility] Anion Gap 16 6 - 16 mmol/L 07/08/2025 7:18 PM EDT [facility] Total Calcium, Plasma 9.3 8.9 - 10.2 mg/dL 07/08/2025 7:18 PM EDT [facility] Total Protein 6.0(L) 6.3 - 7.9 g/dL 07/08/2025 7:18 PM EDT [facility] Albumin, Plasma 2.6(L) 3.5 - 5.2 g/dL 07/08/2025 7:18 PM EDT [facility] AST, Plasma 16 10 - 35 U/L 07/08/2025 7:18 PM EDT [facility] ALT, Plasma 15 10 - 35 U/L 07/08/2025 7:18 PM EDT [facility] Alkaline Phosphatase, Plasma 165(H) 35 - 104 U/L 07/08/2025 7:18 PM EDT [facility] Total Bilirubin, Plasma 0.4 0.2 - 1.1 mg/dL 07/08/2025 7:18 PM EDT [facility] eGFRcr 30.3 mL/min/1.7 3m*2 07/08/2025 7:18 PM EDT [facility] Comment:Reported eGFRcr in m L/min/1.73m2 is based the CKD-EPI 2020 equation that does not use a race coefficient. Blood Venous blood specimen / Unknown Venipuncture / Unknown 07/08/2025 6:14 PM EDT 07/08/2025 6:23 PM EDT us My Charles MD LAB BLOOD ORDERABLES Fi nal Result [facility] [address] [place] [address] * MA CRITICAL CARE, E/M 30-74 MINUTES (07/08/2025 5:58 [...] RN) 0851 (Given - Provider: Josi Ann RN)211 (Given [...] Comment: no wv in place due to [facility] dc) polyethylene glycol (Miralax) packet 17 g [...] Almazan RN) 2113 (Given - Provider: Inessa Almazan, NAHID) senna-docusate (Leann-Colace) 8.6-50 MG per tablet 1 [...] refused)211 (Given - Provider: Inessa Almazan RN) 09 [...] patient request 1316 (Given - Provider: Josi Ann, RN) dextrose 10 % (D10W) bolus 125 [...] Ann RN)2308 (See Alternative - Provider: Inessa Almazan, NAHID) 0851 (See Alternative - Provider: Josi Ann [...] documented as of this encounter Care Teams Collections Analyst Relationship Specialty Start Date End Date Yenny Dhillon APRN [address] [place] [address] PCP - General 07/22/23 documented as of this encounter
--- OUTSIDE RECORDS SUMMARY | 2025-07-08 20:09 | XMS_ITS | Encounter Summary ---
Author Organization Healthcare Address [address] [place] [address] Care Team Providers Care Obstetrics Scrub Nurse Name Role Phone Yenny Dhillon APRN Primary Care Provider [phone] Reason for Visit * Auth/Cert (Routine) Specialty Diagnoses / Procedures Referred By Bharati t Referred To Contact Diagnoses Necrotizing fasciitis (CMS/HCC) Necrotizing Fascitis Brittany Crawford MD [address] [facility] [address] [place] [address] Phone: tel: fax: [facility] A Inpatient [address] [place] [address] Phone: tel: Referral ID Status Reason Start Date Expiration Date Visits Re quested Visits Authorized [id number] 1 1 Encounter Details Date Type Department Care Team (Late st Contact Info) Description 07/08/2025 8:09 PM EDT Anesthesia Event [facility] RO[facility] [address] [place] [address] Yadi Goel MD [address] [place] [address] Jesse Montes MD [address] [place] [address] Anesthesia Record Procedure Summary Procedure Name Responsible [...] No change to dentition. ; Placed by: SYRUP FILTERER; Removal Date: 07/10/25; Removal Time: 164907/08/252027 by [...] and Staff Patient location during procedure: OR SYRUP FILTERER: Richard Betts CRNA Performed: SYRUP FILTERER Patient Condition Indications for airway management: anesthesia [...] original note were not included. Anesthesiologist: (Unknown) SYRUP FILTERER: (Unknown) [employer] Consultant: (Unknown) Patient: Ashley Brown HPI: Ashley Brown [...] 12 months PFTs No results found for: XEB2AWU , [id number] , GMK2EPG , FVCPRED IMAGING: No results found. PRIOR [...] 3 - emergent Plan was reviewed with: SYRUP FILTERER Anesthesia technique(s) discussed with the patient/family: general [...] Description 08/20/2025 10:30 AM EDT Office Visit [facility] [address] [place] [address] Lilliana Morfin APRN [address] [place] [address] documented as of this encounter Procedures Procedure Name Priority Date/Time Associated Diagnosis Comments ANESTHESIA ULTRASOUND GUIDED Routine 07/08/2025 8:37 PM EDT PB ANESTHESIA NON-TIMED PROCEDURE PLACEHOLDER Routine 07/08/2025 8:37 PM EDT AK AN CENTRAL LINE TRIPLE LUMEN Routine 07/08/2025 8:37 PM EDT PB ANESTHESIA PLACEHOLDER Routine 07/08/2025 8:28 PM EDT AK AN ELECTIVE ENDOTRACHEAL AIRWAY Routine 07/08/2025 8:28 PM EDT ANESTHESIA ARTERIAL LINE PLACEMENT Routine 07/08/2025 8:22 PM EDT documented in this encounter Results * AK AN CENTRAL LINE TRIPLE LUMEN, PB ANESTHESIA [...] MD ANESTHESIA ORDERABLES Final R esult * AK AN ELECTIVE ENDOTRACHEAL AIRWAY, PB ANESTHESIA PLACEHOLDER (07/08/2025 8:28 PM EDT) Richard Malin CRNA - 07/08/2025 8:28 PM EDT Richard Betts CRNA 07/08/2025 8:39 PM Airway Date/Time: 07/08/2025 8:28 PM Reason: elective Airway not difficult General Information and Staff Patient location during procedure: OR SYRUP FILTERER: Richard Betts CRNA Performed: SYRUP FILTERER Patient Condition Indications for airway management: anesthesia [...] documented as of this encounter Care Teams Obstetrics Scrub Nurse Relationship Specialty Start Date End Date Yenny Dhillon APRN [address] [place] [address] PCP - General 07/22/23 documented as of this encounter
--- OUTSIDE RECORDS SUMMARY | 2025-07-10 05:12 | XMS_ITS | Continuity of Care Document ---
Author Organization [facility] Address [address] [place] [address] Phone Care Team Providers Care Filler In Name Role Phone Jovan WHITFIELD, Kristy Unavailable Unavailable Allergies, Adverse Reactions, Alerts Substance Reaction Status Criticality BUPROPION HCL Anaphylaxis(moderate) Active High diazepam Abnormal behavior Active No Informa tion alprazolam Abnormal behavior Active No Informa tion doxycycline Hives / Skin Rash(moderate) Active No Information aspirin Hives / Skin Rash(moderate) Active No Information PENICILLIN Hives / Skin Rash(moderate) Active No Information Medications Medication Instructions Dosage Effective Dates (start - stop) Status Comments Naproxen 500 MG Oral Tablet Take 1 tablet by mouth twice daily with food - Active Linzess 72 MCG Oral Capsule TAKE 1 CAPSULE BY MOUTH ONCE DAILY ON AN EMPTY STOMACH AT LEAST 30 MIN BEFORE FIRST MEAL OF THE DAY - Active Rosuvastatin Calcium 20 MG Oral Tablet Take 1 tablet by mouth once daily - Active metFORMIN HCl 500 MG Oral Tablet TAKE 1 TABLET BY MOUTH TWICE DAILY WITH MORNING MEAL AND WITH EVENING MEAL - Active Ozempic 0.25 mg or 0.5 mg (2 mg/3 mL) subcutaneous pen injector INJECT 0.25MG SUBCUTANEOUSLY WEEKLY FOR 4 WEEKS, THEN INCREASE TO 0.5MG WEEKLY THEREAFTER. - Active Montelukast Sodium 10 MG Oral Tablet TAKE 1 TABLET BY MOUTH ONCE DAILY IN THE EVENING FOR ASTHMA - Active Macrobid 100 mg capsule take 1 capsule by oral route every 12 hours with food 100 MG - Active Fiber-Tabs 625 mg tablet take 2 tablet by oral route every day 2 tablet - Active Cymbalta 60 mg capsule,delayed release take 1 capsule by oral route every day - Active albuterol sulfate HFA 90 mcg/actuation aerosol inhaler inhale 2 puff by inhalation route every 4 - 6 hours as needed 180 MCG - Active buspirone 10 mg tablet take 1 tablet by oral route 3 times every day 10 MG - Active loratadine 10 mg tablet take 1 tablet by oral route every day 10 MG - Active Symbicort 160 mcg-4.5 mcg/actuation HFA aerosol inhaler inhale 2 puff by inhalation route 2 times every day in the morning and evening 2.00 puff - Active valsartan 320 mg-hydrochlorothiazi de 12.5 mg tablet take 1 tablet by oral route every day 1.00 tablet - Active Vitamin D3 125 mcg (5,000 unit) tablet Take 1 tablet by mouth once daily - Active Flonase Allergy Relief 50 mcg/actuation nasal spray,suspension spray 1 - 2 spray by intranasal route every day in each nostril as needed 50-100 MCG - Active oxybutynin chloride 5 mg tablet take 1 tablet by oral route 2 times every day 5 MG - Active Advance Directives Directive Yes / No Effective Date File Name No Information Encounters Encounter Description Practice Location Reason(s) For Visit Diagnoses Date Provider [facility], [address] [place] [address], [address], [place] tel:[phone] [place] No Information 5 Jovan Wagner. [address] [place], [place], [id number] , [place]. tel:[phone], [address], [place] tel:[phone] [facility] [place] No Information 5 Alejo Ramon. [address] [place], [place], [id number] , [place]. tel:[phone] [facility], [address] [place] [address], [facility], tel:[phone] [facility] [place] Fasting Labs (chief complaint) Essential (primary) hypertension 5 Dhillon Yenny. [address] [place], [place], [id number] , . tel: [phone] [facility], [address] [place] [address], [facility], tel:[phone] [facility] [place] No Information 5 Dhillon Yenny. [address], [place], [id number] , [place]. tel:[phone] [facility], [address] [place] [address], [facility], tel:[phone] [facility] [place] No Information 5 Dhillon Yenny. [address] [place], [place], [id number] , [place]. tel:[phone] [facility], [address] [place] [address], [facility], tel:[phone] [facility] [place] No Information 5 Dhillon Yenny. [address] [place], [place], [id number] , [place]. tel: [phone] [facility], [address] [place] [address], [facility], tel:[phone] [facility] [place] Lumps on Leg (chief complaint) Body mass index [BMI] 50.0-59.9, adultDisorder of vein, unspecified 3 5 Dhillon Yenny. [address] [place], [place], [id number] , [place]. tel: [phone] [facility], [address] [place] [address], [facility], [place] tel:[phone] [facility] [place] No Information Alejo Ramon. [address] [place], [place], [id number] , . tel:[phone] [facility], [address] [place] [address], [facility], tel:[phone] [facility] [place] f/u on labs (chief complaint) Encntr screen mammogram for malignant neoplasm of breastAbdominal painEssential (primary) hypertensionHyperli pidemiaNicotine dependence, cigarettes, uncomplicatedObesit yType 2 diabetes mellitus w/ diabetic neuropathyVitamin B12 deficiencyVitamin D deficiencyUTIAcute upper respiratory infection, unspecifiedBody mass index [BMI] 50.0-59.9, adult Alejo Oliveiraissa. [address] [place] [address], [place], [id number] , . tel:[phone] [facility], [address] [place] [address], [facility], tel:[phone] [facility] [place] complex f/u (chief complaint)Prepar e (chief complaint)Depres jaydon Screening (chief complaint) Extreme povertyAsthmaDepres sionEssential (primary) hypertensionNicotin e dependence, cigarettes, uncomplicatedObesit yType 2 diabetes mellitus w/ diabetic neuropathyAbdominal painEncounter for screening for depression Alejo Ramon. [address] [place], [place], [id number] , . tel:[phone] [facility], [address] [place] [address], [address], tel:[phone] [facility] [place] Medication refills (chief complaint) Essential (primary) hypertensionBody mass index [BMI] 50.0-59.9, adultChronic constipationDepress ionAsthmaNicotine dependence, cigarettes, uncomplicatedObesit yType 2 diabetes mellitus w/ diabetic neuropathyVitamin B12 deficiencyVitamin D deficiency Dec-0 5-202 4 Dhillon Yenny. [address] [place], [place], [id number] , [place]. tel:[phone] [facility], [address] [place] [address], [facility], tel:[phone] [facility] [place] routine lab collection (chief complaint) No Information 4 Dhillon Yenny. [address] [place] [address], [place], [address] , [place]. tel:[phone] [facility], [address] [place] [address], [facility], [place] tel:[phone] [facility] [place] LOWER BACK PAIN (chief complaint) Body mass index [BMI] 45.0-49.9, adultSciatica, right sideLow back painVitamin B12 deficiency 4 Dhillon Yenny. [address] [place], [place], [address] , [place]. tel: [phone] [facility], [address] [place] [address], [facility], [place] tel:[phone] [facility] [place] f/u labs (chief complaint) Vitamin B12 deficiencyBody mass index [BMI] 45.0-49.9, adultEssential (primary) hypertensionHyperli pidemiaMemory lossNicotine dependence, cigarettes, uncomplicatedObesit yType 2 diabetes mellitus w/ diabetic neuropathyVitamin D deficiencyEncntr screen mammogram for malignant neoplasm of breast 4 Dhillon Yenny. [address] [place], [place], [id number] , [place]. tel:[phone], [address], [place] tel:[phone] [facility] [place] Fasting Labs (chief complaint) Essential (primary) hypertension 4 Dhillon Yenny. [address] [place], [place], [address] , [place]. tel:[phone] [facility], [address] [place] [address], [address], tel:[phone] [facility] [place] B12 injection (chief complaint) Vitamin B12 deficiency 4 Dhillon Yenny. [address] [place], [place], [address] , [place]. tel:[phone] [facility], [address] [place] [address], [facility], tel:[phone] [facility] [place] Blood in stool (chief complaint)eructa tion (chief complaint)back pain f/u MRII (chief complaint) Anxiety disorder, unspecifiedAsthmaEs sential (primary) hypertensionLow back painExtreme povertyBody mass index [BMI] 45.0-49.9, adultEructation 4 Dhillon Yenny. [address] [place], [place], [address] , [place]. tel:[phone] [facility], [address] [place] [address], [facility], [place] tel:[phone] [facility] [place] B12 INJECTION (chief complaint) Vitamin B12 deficiency 4 Dhillon Yenny. [address] [place], [place], [address] , [place]. tel:[phone] [facility], [address] [place] [address], [address], [place] tel:[phone] [facility] [place] f/u on labs (chief complaint) Vitamin B12 deficiencyBody mass index [BMI] 45.0-49.9, adultLow back painType 2 diabetes mellitus w/ diabetic neuropathyHyperlipi demiaNicotine dependence, cigarettes, uncomplicated 4 Dhillon Yenny. [address] [place], [address] , [place]. tel:[phone] [facility], [address] [place] [address], [facility], tel:[phone] [facility] [place] FASTING LABS (chief complaint) Essential (primary) hypertension 4 Dhillon Yenny. [address] [place], [place], [address] , . tel: [phone] [facility], [address] [place] [address], [facility], [place] tel:[phone] [facility] [place] f/u back pain (chief complaint) Low back painNicotine dependence, cigarettes, uncomplicatedSciati ca, right sideVitamin B12 deficiencyBody mass index [BMI] 45.0-49.9, adultAcute serous otitis media, bilateral 3 Dhillon Yenny. [address] [place], [place], [address] , [place]. tel: [phone] [facility], [address] [place] [address], [facility], tel:[phone] [facility] [place] back pain (chief complaint)other (chief complaint) Sciatica, right sideLow back painBody mass index [BMI] 45.0-49.9, adult 3 Dhillon Yenny. [address] [place], [place], [address] , [place]. tel: [phone] [facility], [address] [place] [address], [facility], [place] tel:[phone] [facility] [place] B12 INJECTION (chief complaint) Vitamin B12 deficiency 3 Dhillon Yenny. [address], [place], [address] , [place]. tel: [phone] [facility], [address] [place] [address], [facility], tel:[phone] [facility] [place] B12 INJECTION (chief complaint) Vitamin B12 deficiency 3 Dhillon Yenny. [address] [place], [place], [address] , . tel:[phone] [facility], [address] [place] [address], [facility], tel:[phone] [facility] [place] follow up labs (chief complaint) Body mass index [BMI] 50.0-59.9, adultType 2 diabetes mellitus w/ diabetic neuropathyVitamin B12 deficiencyEssential (primary) hypertensionDepress ionAsthmaNicotine dependence, cigarettes, uncomplicated Aug- 3 Dhillon Yenny. [address], [place], [address] , . tel: [phone] [facility], [address] [place] [address], [facility], tel:[phone] [facility] [place] fasting labs (chief complaint) Memory lossVitamin B12 deficiencyNicotine dependence, cigarettes, uncomplicatedBody mass index [BMI] 50.0-59.9, adult Sep-2 3 Dhillon Yenny. [address] [place], [place], [address] , . tel: [phone] [facility], [address] [place] [address], [facility], tel:[phone] [facility] [place] nocturia (chief complaint) NocturiaStress incontinence (female) (male)Urinary urgencyUTIBody mass index [BMI] 50.0-59.9, adult Sep-0 3 Dhillon Yenny. [address] [place], [place], [address] , [place]. tel: [phone] [facility], [address] [place] [address], [facility], tel:[phone] [facility] [place] INJECTION (chief complaint) Vitamin B12 deficiency 3 Dhillon Yenny. [address], [place], [address] , [place]. tel: [phone] [facility], [address] [place] [address], [facility], tel:[phone] [facility] [place] Follow up from Hospitalization (chief complaint) Body mass index [BMI] 50.0-59.9, adultAcute kidney injuryDehydrationCh ronic constipationEssenti al (primary) hypertension 3 Dhillon Yenny. [address] [place], [place], [address] , [place]. tel: [phone] [facility], [address] [place] [address], [facility], tel:[phone] [facility] [place] Injection (chief complaint) Vitamin B12 deficiency 3 Dhillon Yenny. [address] [place], [place], [address] , [place]. tel: [phone] [facility], [address] [place] [address], [facility], [place] tel:[phone] [facility] [place] FOLLOW UP ON LABS (chief complaint) Vitamin B12 deficiencyBody mass index [BMI] 50.0-59.9, adultAnxiety disorder, unspecifiedAsthmaEs sential (primary) hypertensionMorbid (severe) obesity due to excess caloriesNicotine dependence, cigarettes, uncomplicatedPain in left kneePain in right kneeType 2 diabetes mellitus w/ diabetic neuropathy 3 Dhillon Yenny. [address] [place], [place], [address] , [place]. tel: [phone] [facility], [address] [place] [address], [facility], [place] tel:[phone] [facility] [place] FASTING LABS (chief complaint)B12 INJECTION (chief complaint) Essential (primary) hypertensionDeficie ncy of other specified B group vitamins 3 Dhillon Yenny. [address] [place], [place], [address] , [place]. tel:[phone] [facility], [address] [place] [address], [facility], [place] tel:[phone] [facility] [place] complex f/u (chief complaint) Vitamin B12 deficiencyType 2 diabetes mellitus w/ diabetic neuropathyObesityNi cotine dependence, cigarettes, uncomplicatedHidrad enitis suppurativaEssentia l (primary) hypertensionAsthmaE ncounter for other preprocedural examination March-0 3 Dhillon Yenny. [address] [place], [place], [address] , [place]. tel: [phone] [facility], [address] [place] [address], [facility], [place] tel:[phone] [facility] [place] Leg wound (chief complaint)Discus s diabetic shoes. (chief complaint) Vitamin B12 deficiencyType 2 diabetes mellitus w/ diabetic neuropathyBody mass index [BMI] 50.0-59.9, adultHidradenitis suppurativaEssentia l (primary) hypertensionCutaneo us abscess Feb-0 3 Dhillon Yenny. [address], [place], [address] , [place]. tel: [phone] [facility], [address] [place] [address], [facility], [place] tel:[phone] [facility] [place] B12 injection (chief complaint) Vitamin B12 deficiency Jan- 3 Dhillon Yenny. [address] [place], [place], [address] , [place]. tel: [phone] [facility], [address] [place] [address], [facility], [place] tel:[phone] [facility] [place] follow up (chief complaint) Vitamin B12 deficiency Jan- 3 Dhillon Yenny. [address] [place], [place], [address] , . tel: [phone] [facility], [address] [place] [address], [facility], tel:[phone] [facility] b12 # 3 of 6 (chief complaint) Vitamin B12 deficiency Mar- 3 Dhillon Yenny. [address] [place], [place], [address] , [place]. tel: [phone] [facility], [address] [place] [address], [facility], tel:[phone] [facility] follow up on labs (chief complaint) Vitamin B12 deficiencyBody mass index [BMI] 50.0-59.9, adultPain in left kneePain in right kneeAcute upper respiratory infection, unspecifiedParesthe kalpesh of skinObesityDepressi onChronic constipationPrediab etesNicotine dependence, cigarettes, uncomplicated Mar-0 3-202 3 Dhillon Yenny. [address] [place], [place], [address] , [place]. tel: [phone] [facility], [address] [place] [address], [facility], tel:[phone] [facility] b12 # 1 of 6 (chief complaint) Vitamin B12 deficiency Fe-2 3 Dhillon Yenny. [address] [place], [place], [address] , [place]. tel: [phone] [facility], [address] [place] [address], [facility], [place] tel:[phone] [facility] Establish care (chief complaint) Encounter for screening for depressionEncounter for screening examination for other mental health and behavioral disordersAnxiety disorder, unspecifiedDepressi onAsthmaVitamin D deficiencyEssential (primary) hypertensionPrediab etesChronic constipationBody mass index [BMI] 50.0-59.9, adultNicotine dependence, cigarettes, uncomplicatedMorbid (severe) obesity due to excess calories Alejo Ramon. [address], [place], [address] , . tel: [phone] Family History Family Member Type Diagnosis Age At Onset Maternal grandmother Problem Passed in 1994 from Leukemia Father Problem Passed in 2007 from Lung Can cer Paternal grandmother Problem Passed in 2001 from Alzheimer's Disease Sister Problem PALENCIA, HTN, Anxiety, Depressi on Paternal grandfather Problem Passed in 1999 from a Heart Attack Maternal grandfather Problem Passed in 1996 from CHF Mother Problem COPD, Lung Failure passed in 2018 Mother Problem Kidney Cancer Sister Problem Alive and well Immunizations Vaccine Date Status Comments Influenza virus vaccine, trivalent (IIV3), split virus, preservative free, 0.5 mL dosage, for intramuscular use refused Source: New Immuni zation Record SARS-COV-2 (COVID-19) vaccin e, mRNA, spike protein, LNP, preservative free, 50 mcg/0.5 mL dose 12 years of age and older (Moderna Spikevax) refused Source: New Imm unization Record Influenza Flulaval refused Source: N ew Immunization Record Influenza Flulaval refused Source: N ew Immunization Record Moderna refused Source: New Imm unization Record Influenza Flulaval refused Source: N ew Immunization Record Payers Payer name Insurance type Covered democrat ID Authoriza tivirginia(s) [facility]- Medicaid [employer] CI [id number] [facility]- Medicaid [employer] are Wrap Pay [id number] [facility]- Covered Under [place] [id number] Hc- Covered Under [place] CI [id number] Hc- Covered Under [place] CI [id number] [facility]- Covered Under [place] CI [id number] Social History Type Description Quantity Date Captured Comments Alcohol Use Details Unknown Caffeine Use Details Unknown Tobacco Use Status Smoking Status No Information Sex Female Sexual Orientation Straight or heterosexual Dec Gender Identity Female Chief Complaint And Reason For Visit No Information Plan Of Treatment Date Type Action Status Goal Hemoglobin A1C. Due on due Goal Dental exam. Due on due Goal GFR. Due on due Goal Drug Abuse Scree davy Test (DAST-10). Due on due Goal CBC. Due on due Goal Taking Statin Me dication. Due on due Goal PAP. Due on due Goal Tobacco Use Scre ening. Due on due Goal TSH. Due on due Goal Vitamin B12. Due on due Goal Urine microalbumin. Due on due Goal Tobacco Use Cess ation Counseling. Due on due Goal CMP. Due on due Goal Vitamin D. Due on due Goal Dilated eye exam. Due on March due Goal Lipid panel. Due on due Goal ASCVD 10 year risk. Due on due Goal Foot exam. Due on due Goal Hep B (1st). Due on due Goal Generalized Anxi ety Disorder - 7 (SONDRA-7). Due on due Goal Urinalysis due Goal Tobacco screening. Due on due Goal Depression scree davy. Due on due Goal HIV screen due Goal Obtain Height, W eight, and BMI. Due on due Goal Follow up Plan f or abnormal BMI (Less than 18.5, greater than 25). Due on due Goal ECG due Goal Unhealthy drug use screening due Goal HPV testing. Due on 025 due Goal Hepatitis C Screening due Goal Diabetes screening. Due on due Goal Hemoglobin (Pree tea/HR 9 months). Due on due Goal Pap/HPV testing. Due on due Goal Hematocrit/Hemog lobin. Due on due Goal Pneumococcal vac cine. Due on due Goal Obtain blood Pre ssure. Due on due Goal PAP. Due on due Goal Generalized Anxi ety Disorder - 7 (SONDRA-7). Due on due Goal Unhealthy drug use screening due Goal Tobacco screening. Due on due Goal CMP. Due on due Goal Follow up Plan f or abnormal BMI (Less than 18.5, greater than 25). Due on due Goal HIV screen due Goal Vitamin B12. Due on 026 due Goal TSH. Due on due Goal Taking Statin Me dication. Due on due Goal Tobacco Use Scre ening. Due on due Goal Obtain Height, W eight, and BMI. Due on due Goal Pap/HPV testing. Due on due Goal Urine microalbumin. Due on due Goal Dilated eye exam. Due on March due Goal Hemoglobin A1C. Due on due Goal Foot exam. Due on due Goal Lipid panel. Due on due Goal Drug Abuse Scree davy Test (DAST-10). Due on due Goal Tobacco Use Cess ation Counseling. Due on due Goal Urinalysis due Goal CBC. Due on due Goal Diabetes screening. Due on due Goal Vitamin D. Due on due Goal Hepatitis C Screening due Goal HPV testing. Due on due Goal ECG due Goal Obtain blood Pre ssure. Due on due Goal Depression scree davy. Due on due Goal Hematocrit/Hemog lobin. Due on due Goal Hemoglobin (Pree tea/HR 9 months). Due on due Goal Pneumococcal vac cine. Due on due Goal Dental exam. Due on due Goal Hep B (1st). Due on due Goal GFR. Due on due Goal ASCVD 10 year risk. Due on due Goal ASCVD 10 year risk. Due on due Goal Pneumococcal vac cine. Due on due Goal Lipid panel. Due on due Goal Hep B (1st). Due on due Goal Dilated eye exam. Due on March due Goal Foot exam. Due on due Goal Obtain blood Pre ssure. Due on due Goal Depression scree davy. Due on due Goal Urinalysis due Goal Taking Statin Me dication. Due on due Goal Urine microalbumin. Due on due Goal ECG due Goal Dental exam. Due on due Goal Hemoglobin A1C. Due on due Goal GFR. Due on due Goal Hepatitis C Screening due Goal Diabetes screening. Due on due Goal Vitamin B12. Due on due Goal Hemoglobin (Pree tea/HR 9 months). Due on due Goal Pap/HPV testing. Due on due Goal Tobacco Use Cess ation Counseling. Due on due Goal HIV screen due Goal Tobacco screening. Due on due Goal Drug Abuse Scree davy Test (DAST-10). Due on due Goal CMP. Due on due Goal Tobacco Use Scre ening. Due on due Goal Unhealthy drug use screening due Goal HPV testing. Due on due Goal Follow up Plan f or abnormal BMI (Less than 18.5, greater than 25). Due on due Goal Generalized Anxi ety Disorder - 7 (SONDRA-7). Due on due Goal TSH. Due on due Goal CBC. Due on due Goal Vitamin D. Due on due Goal Obtain Height, W eight, and BMI. Due on due Goal PAP. Due on due Goal Hematocrit/Hemog lobin. Due on due Goal Lipid 9-11 y due Goal Lipid 17-20 y due Goal Foot exam. Due on due Goal Lipid panel. Due on due Goal Diabetes screening. Due on due Goal PAP. Due on due Goal Dental exam. Due on due Goal GFR. Due on due Goal Tobacco screening. Due on due Goal Tobacco Use Cess ation Counseling. Due on due Goal Dilated eye exam. Due on March due Goal CMP. Due on due Goal Vitamin D. Due on due Goal Pap/HPV testing. Due on due Goal Hep B (1st). Due on due Goal Hemoglobin A1C. Due on due Goal ASCVD 10 year risk. Due on due Goal Taking Statin Me dication. Due on due Goal Urine microalbumin. Due on due Goal Generalized Anxi ety Disorder - 7 (SONDRA-7). Due on due Goal Follow up Plan f or abnormal BMI (Less than 18.5, greater than 25). Due on due Goal TSH. Due on due Goal Pneumococcal vac cine. Due on due Goal Urinalysis due Goal Obtain blood Pre ssure. Due on due Goal HPV testing. Due on due Goal CBC. Due on due Goal Unhealthy drug use screening due Goal ECG due Goal Hepatitis C Screening due Goal Drug Abuse Scree davy Test (DAST-10). Due on due Goal HIV screen due Goal Obtain Height, W eight, and BMI. Due on due Goal Vitamin B12. Due on 026 due Goal Tobacco Use Scre ening. Due on due Goal Depression scree davy. Due on due Goal Hematocrit/Hemog lobin. Due on due Goal Hemoglobin (Pree tea/HR 9 months). Due on due Goal ASCVD 10 year risk. Due on due Goal Dental exam. Due on due Goal GFR. Due on due Goal Hemoglobin A1C. Due on due Goal Taking Statin Me dication. Due on due Goal Lipid panel. Due on 026 due Goal Hep B (1st). Due on 025 due Goal Foot exam. Due on due Goal Tobacco screening. Due on due Goal Obtain Height, W eight, and BMI. Due on due Goal Tobacco Use Cess ation Counseling. Due on due Goal CBC. Due on due Goal Generalized Anxi ety Disorder - 7 (SONDRA-7). Due on due Goal TSH. Due on due Goal Drug Abuse Scree davy Test (DAST-10). Due on due Goal PAP. Due on due Goal Tobacco Use Scre ening. Due on due Goal HPV testing. Due on 025 due Goal Follow up Plan f or abnormal BMI (Less than 18.5, greater than 25). Due on due Goal Vitamin D. Due on due Goal Hepatitis C Screening due Goal Unhealthy drug use screening due Goal Pap/HPV testing. Due on due Goal Dilated eye exam. Due on March due Goal Urine microalbumin. Due on due Goal HIV screen due Goal CMP. Due on due Goal Diabetes screening. Due on due Goal Pneumococcal vac cine. Due on due Goal Vitamin B12. Due on due Goal Obtain blood Pre ssure. Due on due Goal Depression scree davy. Due on due Goal ECG due Goal Urinalysis due Goal Lifestyle education regardin g diet completed Goal Lifestyle education regardin g diet completed Goal Tobacco Use Cess ation Counseling. Due on due Goal Tobacco Use Scre ening. Due on due Goal HIV screen due Goal Lipid panel. Due on due Goal Foot exam. Due on due Goal Unhealthy drug use screening due Goal Obtain blood Pre ssure. Due on due Goal Hemoglobin A1C. Due on due Goal Dilated eye exam. Due on March due Goal Generalized Anxi ety Disorder - 7 (SONDRA-7). Due on due Goal ASCVD 10 year risk. Due on due Goal PAP. Due on due Goal Dental exam. Due on due Goal HPV testing. Due on due Goal Hepatitis C Screening due Goal Depression scree davy. Due on due Goal Obtain Height, W eight, and BMI. Due on due Goal GFR. Due on due Goal Hep B (1st). Due on due Goal Taking Statin Me dication. Due on due Goal Urine microalbumin. Due on due Goal Pneumococcal vac cine. Due on due Goal Tobacco screening. Due on due Goal Drug Abuse Scree davy Test (DAST-10). Due on due Goal Vitamin B12. Due on due Goal CBC. Due on due Goal Pap/HPV testing. Due on due Goal Diabetes screening. Due on due Goal Follow up Plan f or abnormal BMI (Less than 18.5, greater than 25). Due on due Goal TSH. Due on due Goal CMP. Due on due Goal ECG due Goal Vitamin D. Due on due Goal Urinalysis due Goal Lifestyle education regardin g diet completed Goal Urinalysis due Goal Taking Statin Me dication. Due on due Goal Dilated eye exam. Due on March due Goal Obtain blood Pre ssure. Due on due Goal Dental exam. Due on due Goal Urine microalbumin. Due on due Goal Lipid panel. Due on due Goal Depression scree davy. Due on due Goal CMP. Due on due Goal TSH. Due on due Goal Drug Abuse Scree davy Test (DAST-10). Due on due Goal Tobacco Use Scre ening. Due on due Goal Generalized Anxi ety Disorder - 7 (SONDRA-7). Due on due Goal Hep B (1st). Due on due Goal Hemoglobin A1C. Due on due Goal Tobacco screening. Due on due Goal Pap/HPV testing. Due on due Goal Foot exam. Due on due Goal ASCVD 10 year risk. Due on due Goal GFR. Due on due Goal Obtain Height, W eight, and BMI. Due on due Goal PAP. Due on due Goal HIV screen due Goal Vitamin B12. Due on due Goal Vitamin D. Due on due Goal Diabetes screening. Due on due Goal Pneumococcal vac cine. Due on due Goal ECG due Goal Tobacco Use Cess ation Counseling. Due on due Goal CBC. Due on due Goal Hepatitis C Screening due Goal Unhealthy drug use screening due Goal Follow up Plan f or abnormal BMI (Less than 18.5, greater than 25). Due on due Goal HPV testing. Due on due Goal Tobacco cessation counseling completed Goal Lifestyle education regardin g diet completed Goal Urine microalbumin. Due on A due Goal Hemoglobin A1C. Due on due Goal Taking Statin Me dication. Due on due Goal Urinalysis due Goal Pap/HPV testing. Due on due Goal HPV testing. Due on due Goal HIV screen due Goal GFR. Due on due Goal Generalized Anxi ety Disorder - 7 (SONDRA-7). Due on due Goal ASCVD 10 year risk. Due on due Goal Dental exam. Due on due Goal Tobacco Use Scre ening. Due on due Goal Foot exam. Due on due Goal TSH. Due on due Goal Dilated eye exam. Due on March due Goal Hep B (). Due on due Goal Obtain Height, W eight, and BMI. Due on due Goal Hepatitis C Screening due Goal CMP. Due on due Goal Vitamin B12. Due on due Goal Follow up Plan f or abnormal BMI (Less than 18.5, greater than 25). Due on due Goal Vitamin D. Due on due Goal PAP. Due on due Goal Mammogram. Due on due Goal Tobacco Use Cess ation Counseling. Due on due Goal Depression scree davy. Due on due Goal Pneumococcal vac cine. Due on due Goal Drug Abuse Scree davy Test (DAST-10). Due on due Goal CBC. Due on due Goal ECG due Goal Lipid panel. Due on due Goal Diabetes screening. Due on due Goal Obtain blood Pre ssure. Due on due Goal Unhealthy drug use screening due Goal Colonoscopy. Due on due Goal Lifestyle education regardin g diet completed Goal Urinalysis due Goal Dental exam. Due on due Goal Hep B (). Due on due Goal Taking Statin Me dication. Due on due Goal Hemoglobin A1C. Due on due Goal Urine microalbumin. Due on A due Goal Colonoscopy. Due on due Goal Vitamin D. Due on due Goal Generalized Anxi ety Disorder - 7 (SONDRA-7). Due on due Goal ASCVD 10 year risk. Due on due Goal Hepatitis C Screening due Goal CMP. Due on due Goal Tobacco Use Scre ening. Due on due Goal Tobacco Use Cess ation Counseling. Due on due Goal Foot exam. Due on due Goal GFR. Due on due Goal Unhealthy drug use screening due Goal Dilated eye exam. Due on March due Goal Diabetes screening. Due on A due Goal Vitamin B12. Due on 025 due Goal HPV testing. Due on 024 due Goal Follow up Plan f or abnormal BMI (Less than 18.5, greater than 25). Due on due Goal ECG due Goal Pap/HPV testing. Due on due Goal Obtain blood Pre ssure. Due on due Goal Pneumococcal vac cine. Due on due Goal PAP. Due on due Goal Drug Abuse Scree davy Test (DAST-10). Due on due Goal Mammogram. Due on due Goal CBC. Due on due Goal Influenza vaccine. Due on due Goal TSH. Due on due Goal Obtain Height, W eight, and BMI. Due on due Goal Depression scree davy. Due on due Goal Lipid panel. Due on 029 due Goal HIV screen due Goal Urine microalbumin. Due on A due Goal ASCVD 10 year risk. Due on due Goal GFR. Due on due Goal Hemoglobin A1C. Due on due Goal Generalized Anxi ety Disorder - 7 (SONDRA-7). Due on due Goal Taking Statin Me dication. Due on due Goal Vitamin D. Due on due Goal Colonoscopy. Due on due Goal Hep B (). Due on due Goal Dental exam. Due on due Goal Foot exam. Due on due Goal HIV screen due Goal Dilated eye exam. Due on March due Goal PAP. Due on due Goal Unhealthy drug use screening due Goal Diabetes screening. Due on due Goal Tobacco Use Cess ation Counseling. Due on due Goal Hepatitis C Screening due Goal Influenza vaccine. Due on due Goal Tobacco Use Scre ening. Due on due Goal Mammogram. Due on due Goal Drug Abuse Scree davy Test (DAST-10). Due on due Goal Vitamin B12. Due on 025 due Goal TSH. Due on due Goal Pap/HPV testing. Due on due Goal HPV testing. Due on due Goal Follow up Plan f or abnormal BMI (Less than 18.5, greater than 25). Due on due Goal CBC. Due on due Goal CMP. Due on due Goal Obtain Height, W eight, and BMI. Due on due Goal Depression scree davy. Due on due Goal Obtain blood Pre ssure. Due on due Goal Pneumococcal vac cine. Due on due Goal ECG due Goal Lipid panel. Due on due Goal Urinalysis due Goal Lifestyle education regardin g diet completed Goal Tobacco cessation counseling completed Goal Taking Statin Me dication. Due on due Goal Obtain blood Pre ssure. Due on due Goal Urine microalbumin. Due on A due Goal Dental exam. Due on due Goal Pneumococcal vac cine. Due on due Goal Depression scree davy. Due on due Goal GFR. Due on due Goal Urinalysis due Goal ASCVD 10 year risk. Due on M due Goal Hep B (). Due on due Goal Obtain Height, W eight, and BMI. Due on due Goal Vitamin D. Due on due Goal CBC. Due on due Goal Hemoglobin A1C. Due on due Goal Tobacco Use Scre ening. Due on due Goal Foot exam. Due on 4 due Goal HPV testing. Due on due Goal Dilated eye exam. Due on March due Goal Follow up Plan f or abnormal BMI (Less than 18.5, greater than 25). Due on due Goal Drug Abuse Scree davy Test (DAST-10). Due on due Goal Pap/HPV testing. Due on due Goal Colonoscopy. Due on due Goal Influenza vaccine. Due on due Goal Generalized Anxi ety Disorder - 7 (SONDRA-7). Due on due Goal Mammogram. Due on 3 due Goal CMP. Due on due Goal TSH. Due on due Goal Tobacco Use Cess ation Counseling. Due on due Goal Hepatitis C Screening due Goal Vitamin B12. Due on due Goal HIV screen due Goal Diabetes screening. Due on A due Goal PAP. Due on due Goal Unhealthy drug use screening due Goal Lipid panel. Due on due Goal ECG due Goal Lifestyle education regardin g diet completed Goal Foot exam. Due on 4 due Goal Dilated eye exam. Due on March due Goal Hep B (1st). Due on due Goal ASCVD 10 year risk. Due on M due Goal Vitamin B12. Due on due Goal Taking Statin Me dication. Due on due Goal Dental exam. Due on due Goal TSH. Due on due Goal Vitamin D. Due on due Goal HIV screen due Goal Pap/HPV testing. Due on due Goal Hemoglobin A1C. Due on due Goal HPV testing. Due on due Goal Follow up Plan f or abnormal BMI (Less than 18.5, greater than 25). Due on due Goal CBC. Due on due Goal Mammogram. Due on due Goal GFR. Due on due Goal Urine microalbumin. Due on A due Goal Tobacco Use Cess ation Counseling. Due on due Goal ECG due Goal CMP. Due on due Goal Generalized Anxi ety Disorder - 7 (SONDRA-7). Due on due Goal Depression scree davy. Due on due Goal Tobacco Use Scre ening. Due on due Goal Obtain Height, W eight, and BMI. Due on due Goal Influenza vaccine. Due on due Goal Urinalysis due Goal Obtain blood Pre ssure. Due on due Goal Hepatitis C Screening due Goal Diabetes screening. Due on due Goal Drug Abuse Scree davy Test (DAST-10). Due on due Goal PAP. Due on due Goal Unhealthy drug use screening due Goal Pneumococcal vac cine. Due on due Goal Colonoscopy. Due on due Goal Lipid panel. Due on due Goal ASCVD 10 year risk. Due on due Goal Foot exam. Due on due Goal Hep B (). Due on due Goal Taking Statin Me dication. Due on due Goal Dental exam. Due on due Goal Urine microalbumin. Due on due Goal Hemoglobin A1C. Due on due Goal GFR. Due on due Goal Dilated eye exam. Due on March due Goal Vitamin B12. Due on due Goal Vitamin D. Due on 4 due Goal TSH. Due on due Goal Mammogram. Due on 3 due Goal HPV testing. Due on due Goal Pap/HPV testing. Due on due Goal HIV screen due Goal Unhealthy drug use screening due Goal CMP. Due on due Goal Drug Abuse Scree davy Test (DAST-10). Due on due Goal Colonoscopy. Due on due Goal Diabetes screening. Due on due Goal Hepatitis C Screening due Goal Tobacco Use Scre ening. Due on due Goal Tobacco Use Cess ation Counseling. Due on due Goal PAP. Due on due Goal Lipid panel. Due on due Goal Obtain Height, W eight, and BMI. Due on due Goal Obtain blood Pre ssure. Due on due Goal Pneumococcal vac cine. Due on due Goal Generalized Anxi ety Disorder - 7 (SONDRA-7). Due on due Goal Influenza vaccine. Due on due Goal ECG due Goal Follow up Plan f or abnormal BMI (Less than 18.5, greater than 25). Due on due Goal Depression scree davy. Due on due Goal Urinalysis due Goal CBC. Due on due Goal Foot exam. Due on due Goal ASCVD 10 year risk. Due on due Goal Taking Statin Me dication. Due on due Goal Dental exam. Due on due Goal GFR. Due on due Goal Hep B (1st). Due on due Goal Dilated eye exam. Due on March due Goal Follow up Plan f or abnormal BMI (Less than 18.5, greater than 25). Due on due Goal Generalized Anxi ety Disorder - 7 (SONDRA-7). Due on due Goal Obtain Height, W eight, and BMI. Due on due Goal CBC. Due on due Goal Urine microalbumin. Due on due Goal Hepatitis C Screening due Goal Tobacco Use Cess ation Counseling. Due on due Goal Vitamin D. Due on due Goal Tobacco Use Scre ening. Due on due Goal Mammogram. Due on due Goal HIV screen due Goal Hemoglobin A1C. Due on due Goal Drug Abuse Scree davy Test (DAST-10). Due on due Goal Unhealthy drug use screening due Goal Pap/HPV testing. Due on due Goal CMP. Due on due Goal TSH. Due on due Goal Depression scree davy. Due on due Goal ECG due Goal HPV testing. Due on due Goal Vitamin B12. Due on due Goal Urinalysis due Goal PAP. Due on due Goal Diabetes screening. Due on due Goal Colonoscopy. Due on 033 due Goal Obtain blood Pre ssure. Due on due Goal Influenza vaccine. Due on due Goal Lipid panel. Due on due Goal Pneumococcal vac cine. Due on due Goal Lifestyle education regardin g diet completed Goal Tobacco cessation counseling completed Goal Foot exam. Due on due Goal Dilated eye exam. Due on Dec due Goal Hep B (). Due on due Goal ASCVD 10 year risk. Due on M due Goal Dental exam. Due on due Goal Urine microalbumin. Due on F due Goal Taking Statin Me dication. Due on due Goal Hemoglobin A1C. Due on due Goal Vitamin B12. Due on due Goal Generalized Anxi ety Disorder - 7 (SONDRA-7). Due on due Goal GFR. Due on due Goal Mammogram. Due on due Goal FOBT. Due on due Goal Tobacco Use Scre ening. Due on due Goal HPV testing. Due on due Goal Pap/HPV testing. Due on due Goal HIV screen due Goal Colonoscopy. Due on due Goal Drug Abuse Scree davy Test (DAST-10). Due on due Goal TSH. Due on due Goal CMP. Due on due Goal PAP. Due on due Goal Follow up Plan f or abnormal BMI (Less than 18.5, greater than 25). Due on due Goal Obtain Height, W eight, and BMI. Due on due Goal Unhealthy drug use screening due Goal Diabetes screening. Due on due Goal Vitamin D. Due on due Goal HPV. Due on due Goal CBC. Due on due Goal Tobacco Use Cess ation Counseling. Due on due Goal Hepatitis C Screening due Goal Urinalysis due Goal Influenza vaccine. Due on due Goal Depression scree davy. Due on due Goal ECG due Goal Pneumococcal vac cine. Due on due Goal Lipid panel. Due on 028 due Goal Obtain blood Pre ssure. Due on due Goal Hemoglobin A1C. Due on due Goal GFR. Due on due Goal Dental exam. Due on 024 due Goal Foot exam. Due on due Goal Taking Statin Me dication. Due on due Goal Dilated eye exam. Due on Nov due Goal ASCVD 10 year risk. Due on due Goal Hep B (1st). Due on due Goal Urine microalbumin. Due on due Goal Vitamin B12. Due on due Goal Tobacco Use Scre ening. Due on due Goal Generalized Anxi ety Disorder - 7 (SONDRA-7). Due on due Goal Obtain Height, W eight, and BMI. Due on due Goal Diabetes screening. Due on due Goal FOBT. Due on due Goal Pap/HPV testing. Due on due Goal HPV testing. Due on due Goal CMP. Due on due Goal HPV. Due on due Goal HIV screen due Goal Vitamin D. Due on due Goal CBC. Due on due Goal Tobacco Use Cess ation Counseling. Due on due Goal Follow up Plan f or abnormal BMI (Less than 18.5, greater than 25). Due on due Goal PAP. Due on due Goal Hepatitis C Screening due Goal TSH. Due on due Goal Obtain blood Pre ssure. Due on due Goal Drug Abuse Scree davy Test (DAST-10). Due on due Goal Unhealthy drug use screening due Goal ECG due Goal Lipid panel. Due on due Goal Pneumococcal vac cine. Due on due Goal Urinalysis due Goal Influenza vaccine. Due on due Goal Colonoscopy. Due on due Goal Depression scree davy. Due on due Goal Mammogram. Due on due Goal Lifestyle education regardin g diet completed Goal Tobacco cessation counseling completed Goal Pneumococcal vac cine. Due on due Goal Tobacco Use Scre ening. Due on due Goal Obtain Height, W eight, and BMI. Due on due Goal Depression scree davy. Due on due Goal HIV screen due Goal TSH. Due on due Goal Tobacco Use Cess ation Counseling. Due on due Goal Generalized Anxi ety Disorder - 7 (SONDRA-7). Due on due Goal CBC. Due on due Goal Diabetes screening. Due on due Goal Vitamin B12. Due on due Goal Unhealthy drug use screening due Goal FOBT. Due on due Goal Hepatitis C Screening due Goal Pap/HPV testing. Due on due Goal Colonoscopy. Due on due Goal PAP. Due on due Goal Vitamin D. Due on due Goal Lipid panel. Due on 028 due Goal Influenza vaccine. Due on due Goal ECG due Goal Urinalysis due Goal Obtain blood Pre ssure. Due on due Goal HPV testing. Due on due Goal Dilated eye exam. Due on Nov due Goal Follow up Plan f or abnormal BMI (Less than 18.5, greater than 25). Due on due Goal Foot exam. Due on due Goal Urine microalbumin. Due on due Goal Taking Statin Me dication. Due on due Goal ASCVD 10 year risk. Due on due Goal Dental exam. Due on due Goal Hemoglobin A1C. Due on due Goal GFR. Due on due Goal Drug Abuse Scree davy Test (DAST-10). Due on due Goal Mammogram. Due on due Goal HPV. Due on due Goal Hep B (1st). Due on due Goal CMP. Due on due Goal Foot exam. Due on due Goal GFR. Due on due Goal Hemoglobin A1C. Due on due Goal Urine microalbumin. Due on due Goal Dental exam. Due on due Goal Hep B (1st). Due on due Goal Dilated eye exam. Due on Oct due Goal ASCVD 10 year risk. Due on due Goal Taking Statin Me dication. Due on due Goal Vitamin D. Due on due Goal Drug Abuse Scree davy Test (DAST-10). Due on due Goal Mammogram. Due on due Goal Pap/HPV testing. Due on due Goal PAP. Due on due Goal Colonoscopy. Due on due Goal Diabetes screening. Due on due Goal TSH. Due on due Goal CBC. Due on due Goal HPV. Due on due Goal Hepatitis C Screening due Goal HPV testing. Due on due Goal Tobacco Use Cess ation Counseling. Due on due Goal HIV screen due Goal FOBT. Due on due Goal Unhealthy drug use screening due Goal Vitamin B12. Due on 024 due Goal Generalized Anxi ety Disorder - 7 (SONDRA-7). Due on due Goal CMP. Due on due Goal Depression scree davy. Due on due Goal Tobacco Use Scre ening. Due on due Goal Obtain Height, W eight, and BMI. Due on due Goal Influenza vaccine. Due on due Goal Lipid panel. Due on 028 due Goal Obtain blood Pre ssure. Due on due Goal ECG due Goal Pneumococcal vac cine. Due on due Goal Follow up Plan f or abnormal BMI (Less than 18.5, greater than 25). Due on due Goal Urinalysis due Goal Lifestyle education regardin g diet completed Goal Tobacco cessation counseling completed Goal GFR. Due on due Goal Foot exam. Due on due Goal ASCVD 10 year risk. Due on due Goal Taking Statin Me dication. Due on due Goal Dental exam. Due on 023 due Goal Hemoglobin A1C. Due on due Goal Dilated eye exam. Due on Oct due Goal Urine microalbumin. Due on due Goal HPV. Due on due Goal Vitamin B12. Due on 024 due Goal Hep B (1st). Due on 023 due Goal Follow up Plan f or abnormal BMI (Less than 18.5, greater than 25). Due on due Goal CMP. Due on due Goal Obtain Height, W eight, and BMI. Due on due Goal CBC. Due on due Goal Vitamin D. Due on due Goal TSH. Due on due Goal Tobacco Use Cess ation Counseling. Due on due Goal HIV screen due Goal Unhealthy drug u se screening. Due on due Goal Generalized Anxi ety Disorder - 7 (SONDRA-7). Due on due Goal Diabetes screening. Due on due Goal Depression scree davy. Due on due Goal Influenza vaccine. Due on due Goal Urinalysis due Goal PAP. Due on due Goal Hepatitis C Screening due Goal Pap/HPV testing. Due on due Goal Tobacco Use Scre ening. Due on due Goal HPV testing. Due on 023 due Goal Obtain blood Pre ssure. Due on due Goal Lipid panel. Due on 028 due Goal ECG due Goal FOBT. Due on due Goal Colonoscopy. Due on 023 due Goal Pneumococcal vac cine. Due on due Goal Drug Abuse Scree davy Test (DAST-10). Due on due Goal Mammogram. Due on due Goal Lifestyle education regardin g diet completed Goal Tobacco cessation counseling completed Goal HPV. Due on due Goal CBC. Due on due Goal Hemoglobin A1C. Due on due Goal Hep B (1st). Due on due Goal ASCVD 10 year risk. Due on due Goal Foot exam. Due on due Goal Dilated eye exam. Due on Sep due Goal Taking Statin Me dication. Due on due Goal GFR. Due on due Goal Dental exam. Due on due Goal Mammogram. Due on due Goal Urine microalbumin. Due on due Goal HIV screen due Goal CMP. Due on due Goal Pap/HPV testing. Due on due Goal Colonoscopy. Due on due Goal Hepatitis C Screening due Goal HPV testing. Due on due Goal PAP. Due on due Goal Drug Abuse Scree davy Test (DAST-10). Due on due Goal Tobacco Use Scre ening. Due on due Goal Unhealthy drug use screening due Goal Follow up Plan f or abnormal BMI (Less than 18.5, greater than 25). Due on due Goal Depression scree davy. Due on due Goal TSH. Due on due Goal Tobacco Use Cess ation Counseling. Due on due Goal Vitamin D. Due on due Goal Generalized Anxi ety Disorder - 7 (SONDRA-7). Due on due Goal Diabetes screening. Due on due Goal Vitamin B12. Due on due Goal Obtain Height, W eight, and BMI. Due on due Goal Influenza vaccine. Due on due Goal FOBT. Due on due Goal Pneumococcal vac cine. Due on due Goal ECG due Goal Urinalysis due Goal Lipid panel. Due on 028 due Goal Obtain blood Pre ssure. Due on due Goal Urine microalbumin. Due on due Goal CMP. Due on due Goal HIV screen due Goal Hep B (). Due on due Goal Mammogram. Due on due Goal Pap/HPV testing. Due on due Goal GFR. Due on due Goal Taking Statin Me dication. Due on due Goal ASCVD 10 year risk. Due on due Goal Dental exam. Due on due Goal Hemoglobin A1C. Due on due Goal Foot exam. Due on due Goal Dilated eye exam. Due on Aug due Goal Tobacco Use Cess ation Counseling. Due on due Goal Diabetes screening. Due on due Goal Colonoscopy. Due on due Goal TSH. Due on due Goal Unhealthy drug use screening due Goal HPV testing. Due on due Goal Vitamin D. Due on due Goal Generalized Anxi ety Disorder - 7 (SONDRA-7). Due on due Goal Vitamin B12. Due on due Goal Obtain Height, W eight, and BMI. Due on due Goal Tobacco Use Scre ening. Due on due Goal FOBT. Due on due Goal PAP. Due on due Goal Hepatitis C Screening due Goal Drug Abuse Scree davy Test (DAST-10). Due on due Goal HPV. Due on due Goal CBC. Due on due Goal Follow up Plan f or abnormal BMI (Less than 18.5, greater than 25). Due on due Goal ECG due Goal Urinalysis due Goal Lipid panel. Due on due Goal Obtain blood Pre ssure. Due on due Goal Depression scree davy. Due on due Goal Pneumococcal vac cine. Due on due Goal Influenza vaccine. Due on Oc due Goal Urinalysis due Goal ECG due Goal Taking Statin Me dication. Due on due Goal ASCVD 10 year risk. Due on M due Goal GFR. Due on due Goal Foot exam. Due on due Goal Hemoglobin A1C. Due on due Goal Hep B (1st). Due on due Goal Urine microalbumin. Due on O due Goal Dilated eye exam. Due on Aug due Goal Pap/HPV testing. Due on due Goal Vitamin B12. Due on due Goal HIV screen due Goal PAP. Due on due Goal Dental exam. Due on due Goal Tobacco Use Scre ening. Due on due Goal HPV. Due on due Goal HPV testing. Due on due Goal Influenza vaccine. Due on Oc due Goal Obtain blood Pre ssure. Due on due Goal Hepatitis C Screening due Goal Drug Abuse Scree davy Test (DAST-10). Due on due Goal Diabetes screening. Due on due Goal Depression scree davy. Due on due Goal CMP. Due on due Goal Vitamin D. Due on due Goal Pneumococcal vac cine. Due on due Goal Unhealthy drug use screening due Goal Mammogram. Due on 3 due Goal TSH. Due on due Goal Follow up Plan f or abnormal BMI (Less than 18.5, greater than 25). Due on due Goal Generalized Anxi ety Disorder - 7 (SONDRA-7). Due on due Goal FOBT. Due on due Goal Colonoscopy. Due on due Goal Tobacco Use Cess ation Counseling. Due on due Goal CBC. Due on due Goal Obtain Height, W eight, and BMI. Due on due Goal Lipid panel. Due on 028 due Goal Tobacco cessation counseling completed Goal Lifestyle education regardin g diet completed Goal Foot exam. Due on due Goal Dental exam. Due on due Goal Dilated eye exam. Due on Jul due Goal Taking Statin Me dication. Due on due Goal GFR. Due on due Goal Urine microalbumin. Due on due Goal Vitamin B12. Due on due Goal Diabetes screening. Due on due Goal HIV screen due Goal Hep B (). Due on due Goal ASCVD 10 year risk. Due on due Goal Hemoglobin A1C. Due on due Goal Tobacco Use Scre ening. Due on due Goal Pap/HPV testing. Due on due Goal Mammogram. Due on 3 due Goal TSH. Due on due Goal HPV. Due on due Goal CMP. Due on due Goal PAP. Due on due Goal HPV testing. Due on due Goal CBC. Due on due Goal FOBT. Due on due Goal Obtain Height, W eight, and BMI. Due on due Goal Follow up Plan f or abnormal BMI (Less than 18.5, greater than 25). Due on due Goal Hepatitis C Screening due Goal Colonoscopy. Due on due Goal Generalized Anxi ety Disorder - 7 (SONDRA-7). Due on due Goal Vitamin D. Due on 4 due Goal Unhealthy drug use screening due Goal Tobacco Use Cess ation Counseling. Due on due Goal Lipid panel. Due on 028 due Goal Urinalysis due Goal ECG due Goal Depression scree davy. Due on due Goal Pneumococcal vac cine. Due on due Goal Drug Abuse Scree davy Test (DAST-10). Due on due Goal Obtain blood Pre ssure. Due on due Goal Lifestyle education regardin g diet completed Goal ASCVD 10 year risk. Due on due Goal Taking Statin Me dication. Due on due Goal Hep B (). Due on due Goal Dilated eye exam. Due on Jul due Goal GFR. Due on due Goal Dental exam. Due on due Goal Hemoglobin A1C. Due on due Goal Foot exam. Due on due Goal Tobacco Use Scre ening. Due on due Goal Hepatitis C Screening due Goal Urine microalbumin. Due on S due Goal TSH. Due on due Goal CBC. Due on due Goal Unhealthy drug u se screening. Due on due Goal Tobacco Use Cess ation Counseling. Due on due Goal HIV screen due Goal Generalized Anxi ety Disorder - 7 (SONDRA-7). Due on due Goal FOBT. Due on due Goal Drug Abuse Scree davy Test (DAST-10). Due on due Goal Colonoscopy. Due on due Goal Vitamin B12. Due on due Goal CMP. Due on due Goal PAP. Due on due Goal Mammogram. Due on due Goal HPV. Due on due Goal Obtain Height, W eight, and BMI. Due on due Goal Diabetes screening. Due on due Goal HPV testing. Due on 023 due Goal Pap/HPV testing. Due on due Goal Urinalysis due Goal Follow up Plan f or abnormal BMI (Less than 18.5, greater than 25). Due on due Goal Vitamin D. Due on due Goal Depression scree davy. Due on due Goal Lipid panel. Due on 028 due Goal Obtain blood Pre ssure. Due on due Goal Pneumococcal vac cine. Due on due Goal Influenza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 your mouth out with water after each use. Monitor for thrush infections. Identify asthma triggers and avoid them. Monitor for worsening of symptoms. Related to Asthma It is recommended to stop smoking/vaping to increase overall health and decrease risk of cardiovascular disease. If you wish to stop smoking/vaping, there is a free online [place] from smoking course offered through our local health department. You may call [phone] for more information. Related to Nicotine dependence, cigarettes, uncomplicated Take medications as prescribed. Follow a sleep schedule. 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 Related to Depression High fiber diet. Inc rease water intake. Take any medications prescribed as directed. May use OTC medications prn for symptom relief. Related to Chronic constipation Patient currently do ing well. BP in goal range. No medication changes. Patient instructed to follow a low salt diet, continuing taking blood pressure medications as prescribed. Keep routine follow up with clinic. Related to Essential (primary) hypertension Giving encouragement to exercise Related to Body mass index [BMI] 50.0-59.9, adult Lifestyle education regarding di et Related to Body mass index [BMI] 50.0-59.9, adult Patient instructed o n appropriate use of medications prescribed for back pain. Discussed conservative measures such as heat, ice, gentle strength stretching, and core muscle strengthening. Avoid heavy lifting, pulling, or tugging. Contact the clinic if any worsening or new symptoms related to back pain occur.If you have new Neruological symptoms discussed today- go to the ER Related to Sciatica, right side Patient instructed o n appropriate use of medications prescribed for back pain. Discussed conservative measures such as heat, ice, gentle strength stretching, and core muscle strengthening. Avoid heavy lifting, pulling, or tugging. Contact the clinic if any worsening or new symptoms related to back pain occur. Related to Low back pain B-12 injection given in office today. Eat foods rich in B-12. Additional oral B12 replacement if indicated. Related to Vitamin B12 deficiency Giving encouragement to exercise Related to Body mass index [BMI] 45.0-49.9, adult Lifestyle education regarding di et Related to Body mass index [BMI] 45.0-49.9, adult Physical activity as tolerated. Try to engage in some form of moderate physical activity for 30 minutes most days of the week. May modify activity as needed to reduce discomfort. Try to achieve/maintain a healthy body weight to reduce strain on musculoskeletal system. Verbalizes an understanding. Related to Body mass index [BMI] 45.0-49.9, adult It is recommended to stop smoking/vaping to increase overall health and decrease risk of cardiovascular disease. If you wish to stop smoking/vaping, there is a free online [place] from smoking course offered through our local health department. You may call [phone] for more information. Related to Nicotine dependence, cigarettes, uncomplicated Physical activity as tolerated. Try to engage in some form of moderate physical activity for 30 minutes most days of the week. May modify activity as needed to reduce discomfort. Try to achieve/maintain a healthy body weight to reduce strain on musculoskeletal system. Verbalizes an understanding. Related to Obesity 15 minutes of sun ex posure daily to naturally raise vitamin D levels Related to Vitamin D deficiency B-12 injection given in office today. Eat foods rich in B-12. Additional oral B12 replacement if indicated. Related to Vitamin B12 deficiency Low fat, low cholest dustin diet. Avoid fatty, fried, and greasy foods. Physical activity as tolerated. Counseled on risks of associated comorbidities, such as heart disease and stroke. Encouraged avoidance of tobacco products. Related to Hyperlipidemia Patient currently do ing well. BP in goal range. No medication changes. Patient instructed to follow a low salt diet, continuing taking blood pressure medications as prescribed. Keep routine follow up with clinic. Related to Essential (primary) hypertension Patient educated on the importance of maintaining glycemic control. Counseled on diet, exercise and other lifestyle factors that can impact glucose control. Monitor blood glucose and keep a log as instructed by checking fasting glucose in the AM and non fasting before bedtime with any additional checks as instructed. Patient instructed to bring glucose log to all scheduled appointments. Instructed on the importance of taking all medications as prescribed. Patient aware of the importance of diabetic eye exams, dental check ups, foot exams and diabetic foot care. Patient verbalized understanding. Related to Type 2 diabetes mellitus w/ diabetic neuropathy Giving encouragement to exercise Related to Body mass index [BMI] 45.0-49.9, adult Lifestyle education regarding di et Related to Body mass index [BMI] 45.0-49.9, adult Patient currently do ing well. BP in goal range. No medication changes. Patient instructed to follow a low salt diet, continuing taking blood pressure medications as prescribed. Keep routine follow up with clinic. Related to Essential (primary) hypertension Use your maintainenc e inhaler daily as instructed. Always rinse your mouth out with water after each use. Monitor for thrush infections. Identify asthma triggers and avoid them. Monitor for worsening of symptoms. Related to Asthma Discussed stress red uction techniques. Take medications as prescribed. Limit caffeine and nicotine. Try to follow a set sleep schedule. Get daily moderate exercise if able to tolerate. Related to Anxiety disorder, unspecified Counseled patients o n medications for reflux. Discussed lifestyle modifications including but not limited to elevating the head of the bed, limiting fatty, greasy, spicy food intake. Avoid heavy meals and caffeine intake within 2 hours of bedtime. If applicable, reduce/discontinue tobacco use and/or alcohol use, as both can make reflux symptoms worse. May use simethicone for eructation or flatulence- or my try Fgard that was given by GI. F/u with gastroenterology as scheduled, or you may call their office to see if a sooner appointment may be available. Related to Eructation Physical activity as tolerated. Try to engage in some form of moderate physical activity for 30 minutes most days of the week. May modify activity as needed to reduce discomfort. Try to achieve/maintain a healthy body weight to reduce strain on musculoskeletal system. Verbalizes an understanding. Related to Body mass index [BMI] 45.0-49.9, adult Patient instructed o n appropriate use of medications prescribed for back pain. Discussed conservative measures such as heat, ice, gentle strength stretching, and core muscle strengthening. Avoid heavy lifting, pulling, or tugging. Contact the clinic if any worsening or new symptoms related to back pain occur. Related to Low back pain Lifestyle education regarding di et Related to Body mass index [BMI] 45.0-49.9, adult Giving encouragement to exercise Related to Body mass index [BMI] 45.0-49.9, adult It is recommended to stop smoking/vaping to increase overall health and decrease risk of cardiovascular disease. If you wish to stop smoking/vaping, there is a free online [place] from smoking course offered through our local health department. You may call [phone] for more information.Use nicotine patches as instructed.RTC 1 month for f/u Related to Nicotine dependence, cigarettes, uncomplicated Physical activity as tolerated. Try to engage in some form of moderate physical activity for 30 minutes most days of the week. May modify activity as needed to reduce discomfort. Try to achieve/maintain a healthy body weight to reduce strain on musculoskeletal system. Verbalizes an understanding. Related to Body mass index [BMI] 45.0-49.9, adult Low fat, low cholest dustin diet. Avoid fatty, fried, and greasy foods. Physical activity as tolerated. Counseled on risks of associated comorbidities, such as heart disease and stroke. Encouraged avoidance of tobacco products. Related to Hyperlipidemia Patient educated on the importance of maintaining glycemic control. Counseled on diet, exercise and other lifestyle factors that can impact glucose control. Monitor blood glucose and keep a log as instructed by checking fasting glucose in the AM and non fasting before bedtime with any additional checks as instructed. Patient instructed to bring glucose log to all scheduled appointments. Instructed on the importance of taking all medications as prescribed. Patient aware of the importance of diabetic eye exams, dental check ups, foot exams and diabetic foot care. Patient verbalized understanding. Related to Type 2 diabetes mellitus w/ diabetic neuropathy B-12 injection given in office today. Eat foods rich in B-12. Additional oral B12 replacement if indicated. Related to Vitamin B12 deficiency Giving encouragement to exercise Related to Body mass index [BMI] 45.0-49.9, adult Lifestyle education regarding di et Related to Body mass index [BMI] 45.0-49.9, adult Gentle stretching re commendedIce applicationMRI ordered Related to Sciatica, right side B-12 injection given in office today. Eat foods rich in B-12. Additional oral B12 replacement if indicated. Related to Vitamin B12 deficiency Patient instructed o n appropriate use of medications prescribed for back pain. Discussed conservative measures such as heat, ice, gentle strength stretching, and core muscle strengthening. Avoid heavy lifting, pulling, or tugging. Contact the clinic if any worsening or new symptoms related to back pain occur. Related to Low back pain It is recommended to stop smoking/vaping to increase overall health and decrease risk of cardiovascular disease. If you wish to stop smoking/vaping, there is a free online [place] from smoking course offered through our local health department. You may call [phone] for more information. Related to Nicotine dependence, cigarettes, uncomplicated Take all antibiotics until complete. May take with food to ease stomach irritation. If you experience frequent yeast infections, you may consider taking an OTC probiotic like culturell or align while taking antibiotics, or eating yogurt (daily) with active cultures. Related to Acute serous otitis media, bilateral Giving encouragement to exercise Related to Body mass index [BMI] 45.0-49.9, adult Lifestyle education regarding di et Related to Body mass index [BMI] 45.0-49.9, adult Patient instructed o n appropriate use of medications prescribed for back pain. Discussed conservative measures such as heat, ice, gentle strength stretching, and core muscle strengthening. Avoid heavy lifting, pulling, or tugging. Contact the clinic if any worsening or new symptoms related to back pain occur. Related to Low back pain Giving encouragement to exercise Related to Body mass index [BMI] 45.0-49.9, adult Lifestyle education regarding di et Related to Body mass index [BMI] 45.0-49.9, adult It is recommended to stop smoking/vaping to increase overall health and decrease risk of cardiovascular disease. If you wish to stop smoking/vaping, there is a free online [place] from smoking course offered through our local health department. You may call [phone] for more information. Related to Nicotine dependence, cigarettes, uncomplicated Use your maintainenc e inhaler daily as instructed. Always rinse your mouth out with water after each use. Monitor for thrush infections. Identify asthma triggers and avoid them. Monitor for worsening of symptoms. Related to Asthma Take medications as prescribed. Follow a sleep schedule. Try to engage in 30 minutes of moderate activity daily if tolerated, as exercise has been shown to improve depression symptoms Related to Depression Patient currently do ing well. BP in goal range. No medication changes. Patient instructed to follow a low salt diet, continuing taking blood pressure medications as prescribed. Keep routine follow up with clinic. Related to Essential (primary) hypertension Patient educated on the importance of improved glycemic control. Counseled on diet, exercise and other lifestyle modifications. Monitor blood glucose and keep a log as instructed by checking fasting glucose in the AM and non fasting before bedtime with any additional checks as instructed. Patient instructed to bring glucose log to all scheduled appointments. Instructed on the importance of taking all medications as prescribed. Patient aware of the importance of diabetic eye exams, dental check ups, foot exams and diabetic foot care. Patient verbalized understanding. Related to Type 2 diabetes mellitus w/ diabetic neuropathy Physical activity as tolerated. Try to engage in some form of moderate physical activity for 30 minutes most days of the week. May modify activity as needed to reduce discomfort. Try to achieve/maintain a healthy body weight to reduce strain on musculoskeletal system. Verbalizes an understanding. Related to Body mass index [BMI] 50.0-59.9, adult Giving encouragement to exercise Related to Body mass index [BMI] 50.0-59.9, adult Lifestyle education regarding di et Related to Body mass index [BMI] 50.0-59.9, adult It is recommended to stop smoking/vaping to increase overall health and decrease risk of cardiovascular disease. If you wish to stop smoking/vaping, there is a free online [place] from smoking course offered through our local health department. You may call [phone] for more information.Use nicotine patches as instructed.RTC 1 month for f/u Related to Nicotine dependence, cigarettes, uncomplicated We will make a refer ral to Dr. Sullivan for a neurological evaluation. Related to Memory loss B-12 injection given in office today. Eat foods rich in B-12. Additional oral B12 replacement if indicated. Related to Vitamin B12 deficiency Giving encouragement to exercise Related to Body mass index [BMI] 50.0-59.9, adult Lifestyle education regarding di et Related to Body mass index [BMI] 50.0-59.9, adult Physical activity as tolerated. Try to engage in some form of moderate physical activity for 30 minutes most days of the week. May modify activity as needed to reduce discomfort. Try to achieve/maintain a healthy body weight to reduce strain on musculoskeletal system. Verbalizes an understanding. Related to Body mass index [BMI] 50.0-59.9, adult Take all antibiotics until complete. May take with food to ease stomach irritation. If you experience frequent yeast infections, you may consider taking an OTC probiotic like culturell or align while taking antibiotics, or eating yogurt (daily) with active cultures. Related to UTI Drink plenty of wate r. Avoid chocolate, caffeine, carbonation, or citrus. Take all medications as instructed.Eliminate oral liquids after 6 pm.Urinate completely just prior to sleep.Referral to Urogynecology Related to Nocturia Lifestyle education regarding di et Related to Body mass index [BMI] 50.0-59.9, adult Giving encouragement to exercise Related to Body mass index [BMI] 50.0-59.9, adult Patient currently do ing well. BP in goal range. No medication changes. Patient instructed to follow a low salt diet, continuing taking blood pressure medications as prescribed. Keep routine follow up with clinic. Related to Essential (primary) hypertension Aug-07-2023 High fiber diet. Inc rease water intake. Take any medications prescribed as directed. May use OTC medications prn for symptom relief. Use dulcolax bid prn Related to Chronic constipation Continue to hydrate well, sips of fluids every 15 minuteswear cotton clothing when outside/breathable clothingStay in shade when possible Limit or eliminate use of NSAIDS Related to Acute kidney injury Giving encouragement to exercise Related to Body mass index [BMI] 50.0-59.9, adult Lifestyle education regarding di et Related to Body mass index [BMI] 50.0-59.9, adult Dietary Instructions for a healthy weight: BMI should be between the range of 18.5-24.9 for an adult; and Caloric intake should be around 4302-6019 for a female, and 1758-5623 for an adult male. Fiber intake should be about 14 grams for 1000 calories per day. That is about 20-30 grams daily. Good sources of fiber are oatmeal, fortified grains, and green leafy vegetables, apples. You can also use Carbohydrate counting to maintain a healthy weight. One serving is equal to 15 grams (1 piece of bread, small fruit, or 1 cup of milk). Men should have 45-75, Women about 30-65 per meal, and snacks are recommend to be 13-30 grams each. Myplate.gov is a good source for meal planning and dietary education. You may also refer to the [place] [employer] website for further low sodium, health heart diet information. [place] diet would be a suitable diet for your current health conditions. Weight loss is recommend. Being active is an essential part of being healthy. Physical activity as tolerated. Try to engage in some form of moderate physical activity for 30 minutes most days of the week. May modify activity as needed to reduce discomfort. Try to achieve/maintain a healthy body weight to reduce strain on musculoskeletal system. Verbalizes understanding. Related to Body mass index [BMI] 50.0-59.9, adult Patient educated on the importance of maintaining glycemic control. Counseled on diet, exercise and other lifestyle factors that can impact glucose control. Monitor blood glucose and keep a log as instructed by checking fasting glucose in the AM and non fasting before bedtime with any additional checks as instructed. Patient instructed to bring glucose log to all scheduled appointments. Instructed on the importance of taking all medications as prescribed. Patient aware of the importance of diabetic eye exams, dental check ups, foot exams and diabetic foot care. Patient verbalized understanding. Related to Type 2 diabetes mellitus w/ diabetic neuropathy rest, ice, compressi on as instructed to reduce joint pain and swelling Related to Pain in right knee rest, ice, compressi on as instructed to reduce joint pain and swelling Related to Pain in left knee It is recommended to stop smoking/vaping to increase overall health and decrease risk of cardiovascular disease. If you wish to stop smoking/vaping, there is a free online [place] from smoking course offered through our local health department. You may call [phone] for more information.Use nicotine patches as instructed.RTC 1 month for f/u Related to Nicotine dependence, cigarettes, uncomplicated Physical activity as tolerated. Try to engage in some form of moderate physical activity for 30 minutes most days of the week. May modify activity as needed to reduce discomfort. Try to achieve/maintain a healthy body weight to reduce strain on musculoskeletal system. Verbalizes an understanding. Related to Morbid (severe) obesity due to excess calories Patient currently do ing well. BP in goal range. No medication changes. Patient instructed to follow a low salt diet, continuing taking blood pressure medications as prescribed. Keep routine follow up with clinic. Related to Essential (primary) hypertension Use your maintainenc e inhaler daily as instructed. Always rinse your mouth out with water after each use. Monitor for thrush infections. Identify asthma triggers and avoid them. Monitor for worsening of symptoms. Related to Asthma Giving encouragement to exercise Related to Body mass index [BMI] 50.0-59.9, adult Lifestyle education regarding di et Related to Body mass index [BMI] 50.0-59.9, adult Asked by pt to compl ete form for surgical clearance for upcoming left carpal tunnel release. Consulted with Cardiology, pt deamed cleared for surgery. Form has been faxed to Orthopedic office in [place], and form scanned to chart. Related to Encounter for other preprocedural examination Use your maintainenc e inhaler daily as instructed. Always rinse your mouth out with water after each use. Monitor for thrush infections. Identify asthma triggers and avoid them. Monitor for worsening of symptoms. Related to Asthma It is recommended to stop smoking to increase overall health and decrease risk of cardiovascular disease. If you wish to stop smoking, there is a free online [place] from smoking course offered through our local health department. You may call [phone] for more information. Related to Nicotine dependence, cigarettes, uncomplicated Patient currently do ing well. BP in goal range. No medication changes. Patient instructed to follow a low salt diet, continuing taking blood pressure medications as prescribed. Keep routine follow up with clinic. Related to Essential (primary) hypertension B-12 injection given in office today. Eat foods rich in B-12. Additional oral B12 replacement if indicated. Related to Vitamin B12 deficiency Patient educated on the importance of maintaining glycemic control. Counseled on diet, exercise and other lifestyle factors that can impact glucose control. Monitor blood glucose and keep a log as instructed by checking fasting glucose in the AM and non fasting before bedtime with any additional checks as instructed. Patient instructed to bring glucose log to all scheduled appointments. Instructed on the importance of taking all medications as prescribed. Patient aware of the importance of diabetic eye exams, dental check ups, foot exams and diabetic foot care. Patient verbalized understanding. Related to Type 2 diabetes mellitus w/ diabetic neuropathy Physical activity as tolerated. Try to engage in some form of moderate physical activity for 30 minutes most days of the week. May modify activity as needed to reduce discomfort. Try to achieve/maintain a healthy body weight to reduce strain on musculoskeletal system. Verbalizes an understanding. Weight loss recommended. Related to Obesity Continue wound care as instructedContinue all antibiotics until completeKeep follow up appt w/ Dr. Padilla Related to Cutaneous abscess Patient instructed o f the importance of taking medications as prescribed, following a low salt diet as well as getting physical activity as tolerated. Patient advised to keep BP log daily checking each morning and before bed. Patient to call the clinic if systolic blood pressure is greater than 150 and/or diastolic blood pressure is staying greater than 90. Related to Essential (primary) hypertension Dietary Instructions for a healthy weight: BMI should be between the range of 18.5-24.9 for an adult; and Caloric intake should be around 8045-1029 for a female, and 0741-7237 for an adult male. Fiber intake should be about 14 grams for 1000 calories per day. That is about 20-30 grams daily. Good sources of fiber are oatmeal, fortified grains, and green leafy vegetables, apples. You can also use Carbohydrate counting to maintain a healthy weight. One serving is equal to 15 grams (1 piece of bread, small fruit, or 1 cup of milk). Men should have 45-75, Women about 30-65 per meal, and snacks are recommend to be 13-30 grams each. [employer] is a good source for meal planning and dietary education. You may also refer to the [place] [employer] website for further low sodium, health heart diet information. [place] diet would be a suitable diet for your current health conditions. Weight loss is recommend. Being active is an essential part of being healthy. Physical activity as tolerated. Try to engage in some form of moderate physical activity for 30 minutes most days of the week. May modify activity as needed to reduce discomfort. Try to achieve/maintain a healthy body weight to reduce strain on musculoskeletal system. Verbalizes understanding. Related to Body mass index [BMI] 50.0-59.9, adult B-12 injection given in office today. Eat foods rich in B-12. Additional oral B12 replacement if indicated. Related to Vitamin B12 deficiency Patient educated on the importance of maintaining glycemic control. Counseled on diet, exercise and other lifestyle factors that can impact glucose control. Monitor blood glucose and keep a log as instructed by checking fasting glucose in the AM and non fasting before bedtime with any additional checks as instructed. Patient instructed to bring glucose log to all scheduled appointments. Instructed on the importance of taking all medications as prescribed. Patient aware of the importance of diabetic eye exams, dental check ups, foot exams and diabetic foot care. Patient verbalized understanding. Related to Type 2 diabetes mellitus w/ diabetic neuropathy Weight loss recommen dedStop smoking Wear loose fitting cotton clothingF/u with Dr. Choudhary, and if you still need referral to Plastic sx at , I will make the referral. Related to Hidradenitis suppurativa Giving encouragement to exercise Related to Body mass index [BMI] 50.0-59.9, adult Lifestyle education regarding di et Related to Body mass index [BMI] 50.0-59.9, adult It is recommended to stop smoking to increase overall health and decrease risk of cardiovascular disease. If you wish to stop smoking, there is a free online [place] from smoking course offered through our local health department. You may call [phone] for more information. I have given you nicotine patches to begin for 4 weeks. We will reevaluate need for dose adjustment at this time. Apply patches to dry skin for 24 hours. Alternate application sites. If skin irritation occurs, discontinue use. Related to Nicotine dependence, cigarettes, uncomplicated High fiber diet. Inc rease water intake. Take any medications prescribed as directed. May use OTC medications prn for symptom relief. Related to Chronic constipation Take medications as prescribed. Follow a sleep schedule. Try to engage in 30 minutes of moderate activity daily if tolerated, as exercise has been shown to improve depression symptoms Related to Depression Orthopedic Referal made Related to Paresthesia of skin Take rest. Drink ple nty of fluids. Uses saline sinus rinses. Use prescription and/or OTC medications for symptom relief as instructed. RTC for worsening URI symptoms. If develops high and/or persistent fever, chills, shortness of breath, severe cough, will need urgent evaluation. Verbalizes an understanding. Related to Acute upper respiratory infection, unspecified Dietary Instructions for a healthy weight: BMI should be between the range of 18.5-24.9 for an adult; and Caloric intake should be around 8899-2485 for a female, and 1688-0357 for an adult male. Fiber intake should be about 14 grams for 1000 calories per day. That is about 20-30 grams daily. Good sources of fiber are oatmeal, fortified grains, and green leafy vegetables, apples. You can also use Carbohydrate counting to maintain a healthy weight. One serving is equal to 15 grams (1 piece of bread, small fruit, or 1 cup of milk). Men should have 45-75, Women about 30-65 per meal, and snacks are recommend to be 13-30 grams each. [employer] is a good source for meal planning and dietary education. You may also refer to the [place] [employer] website for further low sodium, health heart diet information. [place] diet would be a suitable diet for your current health conditions. Weight loss is recommend. Being active is an essential part of being healthy. Physical activity as tolerated. Try to engage in some form of moderate physical activity for 30 minutes most days of the week. May modify activity as needed to reduce discomfort. Try to achieve/maintain a healthy body weight to reduce strain on musculoskeletal system. Verbalizes understanding. Related to Obesity Patient educated on the importance of maintaining glycemic control. Counseled on diet, exercise and other lifestyle factors that can impact glucose control. Patient aware of the importance of diabetic eye exams, dental check ups, foot exams and diabetic foot care. Patient verbalized understanding. Related to Prediabetes Giving encouragement to exercise Related to Body mass index [BMI] 50.0-59.9, adult Dietary management e ducation, guidance, and counseling Related to Body mass index [BMI] 50.0-59.9, adult Patient currently do ing well. BP in goal range. No medication changes. Patient instructed to follow a low salt diet, continuing taking blood pressure medications as prescribed. Keep routine follow up with clinic. Related to Essential (primary) hypertension Patient educated on the importance of maintaining glycemic control. Counseled on diet, exercise and other lifestyle factors that can impact glucose control. Instructed on the importance of taking all medications as prescribed. Patient aware of the importance of diabetic eye exams, dental check ups, foot exams and diabetic foot care. Patient verbalized understanding. Related to Prediabetes High fiber diet. Inc rease water intake. Take any medications prescribed as directed. May use OTC medications prn for symptom relief. Related to Chronic constipation Take medications as prescribed. Follow a sleep schedule. Try to engage in 30 minutes of moderate activity daily if tolerated, as exercise has been shown to improve depression symptomsTake your depression/anxiety medications as instructed. Do not stop them abruptly. Monitor your symptoms around the 2nd week of medication. If you have suicidal or homicidal ideation, and feel you might act on them, go to the ER. Call me if this occurs. Related to Depression Discussed stress red uction techniques. Take medications as prescribed. Limit caffeine and nicotine. Try to follow a set sleep schedule. Get daily moderate exercise if able to tolerate. Related to Anxiety disorder, unspecified Physical activity as tolerated. Try to engage in some form of moderate physical activity for 30 minutes most days of the week. May modify activity as needed to reduce discomfort. Try to achieve/maintain a healthy body weight to reduce strain on musculoskeletal system. Verbalizes an understanding. Related to Morbid (severe) obesity due to excess calories It is recommended to stop smoking to increase overall health and decrease risk of cardiovascular disease. If you wish to stop smoking, there is a free online [place] from smoking course offered through our local health department. You may call [phone] for more information. Related to Nicotine dependence, cigarettes, uncomplicated 15 minutes of sun ex posure daily to naturally raise vitamin D levels Related to Vitamin D deficiency Avoid known triggers . Take medications as instructed. Keep upcoming appointment in February with pulmonology. Get the allergy testing ordered by pulmonology completed prior to your appointment with him. Consider montelukast and daily OTC allergy medication such as loratidine or certirizine. Related to Asthma Giving encouragement to exercise Related to Body mass index [BMI] 50.0-59.9, adult Dietary management e ducation, guidance, and counseling Related to Body mass index [BMI] 50.0-59.9, adult Assessments Type Assessment Date No Information
--- OUTSIDE RECORDS SUMMARY | 2025-07-10 11:35 | XMS_ITS | Encounter Summary ---
Author Organization Healthcare Address [address] [place] [address] Care Team Providers Care Pediatric Nurse Practitioner Name Role Phone Alejo Yenny Lit CASTRO Primary Care Provider [phone] Reason for Visit * Reason Comments Wound Check * Auth/Cert (Routine) Specialty Diagnoses / Procedures Referred By Bharati wiggins Referred To Contact Diagnoses Necrotizing fasciitis ([facility]/HCC) Necrotizing Fascitis Luanne Crawford MD [address] [address] Phone: tel: fax: [facility] Inpatient [address] [place] [address] Phone: tel: Referral ID Status Reason Start Date Expiration Date Visits Re quested Visits Authorized [id number] 1 1 Encounter Details Date Type Department Care Team (Late st Contact Info) Description 07/10/2025 11:35 AM EDT - 07/10/2025 1:45 PM EDT Surgery [facility] OPERATING ROOM [address] [place] [address] Dorcas Hennessy MD [address] [address] DEBRIDEMENT, WOUND groin Surgery Details [...] place, sutures removed on rounds. [facility] can re- apply negative pressurewound therapy: [...] please call our General Surgery Clinic at [phone]. If there are questions or concerns after discharge from the hospital, call Radha Ugalde, Nurse Coordinator between 7am-3pm at [phone]. If it is after hours, weekends, and holidays please call [phone] and ask for the resident precision lens generator for Emergency General Surgery. Medication requests should be made between the hours of 9:00 AM to 3:00 PM Tuesday thru Tuesday. Please note that based upon recent changes to [place] law related to prescribing opioid pain medications, [...] Miscellaneous Notes * Care Plan - Junior Tanya Santos - 07/19/2025 12:34 PM EDT Problem: [...] Injury Flowsheets Taken 07/19/2025 08 by Junior Tanya Santos Body Position: weight shifting Taken 07/18/20252319 [...] Skin Protection Flowsheets Taken 07/19/2025799 by Junior Tanya Santos Activity Management: activity adjusted per tolerance [...] Manage Infection Flowsheets Taken 07/19/2025799 by Junior Tanya Santos Isolation Precautions: protective precautions maintained Taken [...] Outcome: Met Intervention: Promote Activity and Functional [place] Flowsheets Taken 07/18/20252319 by Inessa Almazan, RN [...] Functional Ability Flowsheets Taken 07/19/2025799 by Junior Tanya Santos Activity Management: activity adjusted per tolerance activity encouraged Taken 07/18/20251999 by Inessa Almazan, RN Activity Assistance Provided: assistance, stand-by Assistive Device Utilized: front wheel walker Goal: Absence of Infection Signs and Symptoms Outcome: Met Intervention: Prevent or Manage Infection Flowsheets Taken 07/19/2025799 by Junior Tanya Santos Isolation Precautions: protective precautions maintained Taken [...] Flowsheets Taken 07/19/2025 0223 by Inessa Almazan, employment interviewer Interventions: medication (see MAR) Taken 07/18/2025 1600 by Josi Ann, NAHID Sleep/Rest Enhancement: awakenings minimized consistent schedule promoted Goal: Skin Health and Integrity Outcome: Met Intervention: Optimize Skin Protection Flowsheets Taken 07/19/2025799 by Junior Tanya Santos Activity Management: activity adjusted per tolerance [...] Note Cristina Brown 50 y.o. female CSN: [id number] Admission: 07/08/2025 5:58 PM Primary Problem: Necrotizing fasciitis (CMS/HCC) Primary Campus Recruiting Coordinator: Primary Caregiver: Self Assistance Available at Discharge: [...] Community Agency(s): Patient's Choice of Community Agency(s): [facility] Patient/Family Anticipated Services at Transition: Patient/Family Anticipated Services at Transition: rehabilitation services DME/Equipment Needed after Discharge: Equipment Currently Used at Home: none Equipment Needed After Discharge: walker, rollator Readmission Within the Last 30 Days: Readmission Within the Last 30 Days: unable to assess Medicare Documentation: N/A Follow-up: Keaton Patel MD [address] [facility] [address] [place] [address] [facility] ([facility]) [address] [facility] [address] Go on 07/19/2025 Discharge Transportation: Transportation Anticipated: [...] arranged for this date at 1400 from [facility]. Annie Littlejohn * Gauri LouieJANETH - Raj Cardona RN - 07/19/2025 9:44 AM EDT Images from the original note were not included. 1087 Oxycodone Oral Tablet, Immediate Release Brand Names: Oxaydo, Roxicodone What is this medicine? Oxycodone (yi-d-KBA-done) is an opioid pain reliever. It is used to treat moderate to severe pain. What should I tell my health care provider before I take this medicine? They need to know if you have any of these conditions: ? Osage's disease ? Brain tumor or head injury [...] a special medication guide each time you garbage pick up worker this medicine. ? Overdosage: Taking too [...] should report to your doctor or health nanny caregiver as soon as possible: ? allergic [...] attention (report to your doctor or health nanny caregiver if they continue or are bothersome): ? constipation ? dry mouth ? itching ? nausea, vomiting ? upset stomach This list may not describe all possible side effects. Call your doctor for medical advice about side effects. You may report side effects to FDA at 5-255-TSK-1601. Where should I keep my medicine? This [...] location. To find a disposal location, visit [employer]formerly [facility]/[place]. If you cannot take unused medicine to [...] from the original note were not included. [id number] Naloxone Nasal [place] WHY is this medicine prescribed? Prescription and [...] pharmacist for the instructions or visit the recreational therapy technician's website to get the instructions. You should [...] or doctor for a copy of the recreational therapy technician's information for the patient. Are there OTHER [...] and out of their sight and reach. https://www.upandThe Local.org Dispose of unneeded medications in a way [...] of all of the prescription and nonprescription (tkgd-dcy-yufwnkg) medicines, vitamins, minerals, and dietary supplements you [...] or pharmacist about specific clinical use. The [place] Society of [employer]-System Pharmacists[employer] Inc. represents that the information provided hereunder was formulated with a reasonable standard of care, and in conformity with professional standards in the field. The [employer]-System Pharmacists, Inc. makes no representations or warranties, express or implied, including, but not limited to, any implied warranty of merchantability and/or fitness for a particular purpose, with respect to such information and specifically disclaims all such warranties. Users are advised that decisions regarding drug therapy are complex medical decisions requiring the independent, informed decision of an appropriate health nanny caregiver, and the information is provided for informational purposes only. The entire monograph for a drug should be reviewed for a thorough understanding of the drug's actions, uses and side effects. The [employer] Society of [employer]-System Pharmacists[employer] Inc. does not endorse or recommend the use of any drug.The information is not a substitute for medical care. AHFS?? Patient Medication Information?. ?? Copyright, 2023. The [employer] Society of Health-System Pharmacists??, [address], [address], [place], [place]. All Rights Reserved. Duplication for commercial use must be authorized by [facility]. Selected Revisions: May 26, 2024. AHFS?? Patient Medication Information?. ?? Copyright, 2024 * [facility] Raj Cardona RN - 07/19/2025 [...] controlled substances: ? Drug Enforcement Agency ([place]AR[place]): http://www.deadiversion.PotentialoMEDNAX.gov/drug_disposal/takeback/index.htm ? National Association of Drug Diversion Investigators (NADDI): http://rxdrugdropbox.org/ ? [place] Office of Drug Control Policy: http://odcp.nm.gov/Prescription+Drug+Drop+Box+Sites.htm Are there concerns about or ? ? [...] that tracks prescriptions of controlled substances in [place]. The DANYELLE report tells your doctor if [...] or your doctor may then call the [place] Drug Enforcement and Professional Practices Branch at .This will start an investigation of the error. * Jodycynthia [facility] - Raj Cardona RN - 07/19/2025 9:44 AM EDT Images from the original note were not included. [address] Insulin: How to Use and Where to [...] ?needles? or ?sharps.? ? Call your local [employer] company to ask about removing the sharps container. You can also check withthe Coalition for Safe Community Needle Disposal at www.safeneedledisposal.org or 590-279-7135. Storing your insulin ? Keep unopened insulin [...] cold. Last Reviewed Date: 2023 00:00:00 ?? 0415-2297 [employer] All rights reserved. This information is not intended as a substitute for professional medical care. Always follow your healthcare professional's instructions. * Gauri Rico - Raj Cardona RN - 07/19/2025 9:43 AM EDT Images from the original note were not included. [id number] Diet: Diabetes Food is an important tool [...] of Nutrition and Dietetics at www.eatright.org o French Diabetes Association at www.diabetes.org or 214-421-4250 o Association of Diabetes Care and Education Specialists at www.diabeteseducator.org/ Last Reviewed Date: 2024 00:00:00 ?? 5975-0214 [employer] All rights reserved. This information is not intended as a substitute for professional medical care. Always follow your healthcare professional's instructions. * Gauri [facility] - Raj Cardona RN - 07/19/2025 9:43 AM EDT Images from the original note were not included. 16788 Diabetes: Understanding Carbohydrates, Fats, and Protein Food [...] foods. Last Reviewed Date: 2024 00:00:00 ?? 4010-0858 [employer] All rights reserved. This information is not intended as a substitute for professional medical care. Always follow your healthcare professional's instructions. * [facility] Raj Cardona RN - 07/19/2025 9:43 AM EDT Images from the original note were not included. [address] Discharge Instructions: Packing a Wound You have [...] chills. Last Reviewed Date: 2025 00:00:00 ?? 1636-6312 [employer] All rights reserved. This information is not intended as a substitute for professional medical care. Always follow your healthcare professional's instructions. * Gauri LouieJANETH - Raj Cardona RN - 07/19/2025 9:43 AM EDT Images from the original note were not included. 64445 Negative Pressure Wound Therapy Negative pressure wound [...] device. Last Reviewed Date: 2024 00:00:00 ?? 1402-0580 [employer] All rights reserved. This information is not intended as a substitute for professional medical care. Always follow your healthcare professional's instructions. * Gauri LouieJANETH - Raj Cardona RN - 07/19/2025 9:43 AM EDT Images from the original note were not included. 14344 Discharge Instructions: Changing Your Dressing You are [...] doctor. Last Reviewed Date: 2025 00:00:00 ?? 9253-0990 [employer] All rights reserved. This information is not intended as a substitute for professional medical care. Always follow your healthcare professional's instructions. * Gauri [facility] - Raj Cardona RN - 07/19/2025 9:42 AM EDT Images from the original note were not included. [id number] Abscess (Incision and Drainage) An abscess is [...] treatment. Last Reviewed Date: 2024 00:00:00 ?? 6538-2787 [employer] All rights reserved. This information is not intended as a substitute for professional medical care. Always follow your healthcare professional's instructions. * Gauri Rico - Raj Cardona RN - 07/19/2025 9:42 AM EDT Images from the original note were not included. 39586 Preventing a Surgical Site Infection A risk [...] of infection. ? Controlled body temperature. A uxann-wbft-cealmz temperature during or after surgery prevents oxygen [...] and water or with an alcohol-based hand cottage supervisor before and after caring for you. [...] away. Last Reviewed Date: 2024 00:00:00 ?? 0212-9624 [employer] All rights reserved. This information is not [...] to the condition itself. It comes from Sinhala and Latin words for a gnawing sore [...] questions. Last Reviewed Date: 2023 00:00:00 ?? 9246-9609 [employer] All rights reserved. This information is not [...] MD PCP name and Address: Yenny Dhillon, MOLD BUILDER [address] [facility] [address] [facility] Referring provider name and address: Keaton Patel MD [address] [place] [facility] [address] [facility]31 Chief Concern, Brief History of Present Illness, and Hospital Course Cristina Brown is a 50 y.o. female with PMH of DM, hidradenitis supparativa, current smoker (1.5ppd), hx of absent seizures, UTI, depression, anxiety, asthma, HLD, celiac disease, presenting to [facility] on 07/08/2025 as transfer with [...] so will be discharged to [facility]. Surgeries and Procedures Procedures performed in [...] Medications These medications were sent to [facility] [place], [place] [facility] [address] [address] [address] [facility] [address] [facility] [address] naloxone 4 mg/0.1 mL nasal spray Information [...] - Improving, continue to monitor Septic shock ([facility]) Overview Addendum 07/12/2025 1:55 PM by Gabriel [...] place, sutures removed on rounds. [facility] can re- apply negative pressurewound therapy: [...] please call our General Surgery Clinic at [phone]. If there are questions or concerns after discharge from the hospital, call Radha Ugalde, Nurse Coordinator between 7am-3pm at [phone]. If it is after hours, weekends, and holidays please call [phone] and ask for the resident precision lens generator for Emergency General Surgery. Medication requests should be made between the hours of 9:00 AM to 3:00 PM Tuesday thru Tuesday. Please note that based upon recent changes to [place] law related to prescribing opioid pain medications, [...] normal. Judgment: Judgment normal. Discharge Disposition/Condition Disposition: [facility] Condition: Stable (s/sx potential problems [...] (H) 07/17/2025 I reviewed bg tracing in [facility] glucose timeline 07/19/25 ASSESSMENT Hospital Course: Cristina Brown is a 50 y.o. female with hx of type 2 DM, morbid obesity, hidradenitis supparativa, current smoker (1.5 ppd), hx of absent seizures, UTI, depression, anxiety, asthma, HLD, celiac disease who initially came to [facility] on 07/08/2025 as transfer with [...] to establish care with endocrine provider in [place], [place]. --> Provided patient with address and number of clinic. [[facility] Endocrinology Clinic in the [facility] Physician Building]. -Tentative discharge recommendations: Likely resume [...] team via secure chat orpage us at [phone] during 7a-7p, Tuesday-Tuesday. For after hours please [...] AM EDT Associated Problem(s): DM (diabetes mellitus) ([facility]) - Patient presenting with significant hyperglycemia, requiring [...] Associated Problem(s): Chronic obstructive pulmonary disease, unspecified (CMS/[facility]) Complicates care. Continue Albuterol and DuoNebs. 3L [...] and newly diagnosed JOSEP who presented to [facility] with leukocytosis and exam findings consistent with [...] Airway None Output by Drain (mL) 07/17/25 0700 - 07/17/25 1859 07/17/25 1900 - 07/18/25 0659 07/18/25 0700 - [...] days Lab Units 07/19/2542707/18/25 0603 07/17/25 0520 HEMOGLOBIN g/dL 9.6* 9.1* [...] the brett pad. After discussion with chief precision lens generator, decision was made to remove the [place] and place a hof-hel-qouguurq with Kerlix, Polymem, ABD pads, and skin tape. Please see daily progress notes for additional plans. - Jatin Miller MD Plastic and Reconstructive Surgery, PGY-1 * Care Plan - Inessa Almazan RN - 07/18/2025 11:24 PM EDT Problem: Adult Inpatient Plan of Care Goal: Plan of Care Review 07/18/20252319 by Inessa Almazan, RN Outcome: Ongoing, Progressing Flowsheets Taken 07/18/20252319 by Inessa Almazan, RN Progress: improving Taken 07/18/2025 1633 by Josi Ann RN Plan of Care Reviewed With: patient 07/18/20252318 by Inessa Almazan RN Outcome: Ongoing, Progressing Flowsheets Taken 07/18/20252318 by Inessa Almazan, RN Progress: improving Taken 07/18/2025 163 by Josi Ann RN Plan of Care [...] Note Cristina Brown 50 y.o. female CSN: [id number] Admission: 07/08/2025 5:58 PM Primary Problem: Necrotizing fasciitis (CMS/HCC) Anticipated Discharge Date: 07/19/25 Has Discharge Plans Changed? Yes [facility] Acute Rehab Medicare Second Notice: Housing Circumstances: Low Income ( 101-300% Federal Poverty Guideline) Housing Circumstances Action Taken: Medically Ready for Discharge: Anticipated Tomorrow Additional Comments Per the MD pt is medically ready to d/c after she can tolerate her wv being changed without IV painmedication. SW talked with the pt and she is agreeable to go to [facility] however she still has a lot [...] the MD team. Pt will transfer to [facility] via shuttle on 07/19 if all [...] HLD, celiac disease who initially came to [facility] on 07/08/2025 as transfer with [...] to establish care with endocrine provider in [place], [place]. --> Provided patient with address and number of clinic. [[facility] Endocrinology Clinic in the [facility] Physician Building]. -Tentative discharge recommendations: Likely resume [...] team via secure chat orpage us at [phone] during 7a-7p, Tuesday-Tuesday. For after hours please [...] 7:05 AM EDT Associated Problem(s): Necrotizing fasciitis ([facility]) - 07/09: debridement of necrotizing fasciitis in [...] AM EDT Associated Problem(s): DM (diabetes mellitus) ([facility]) - Patient presenting with significant hyperglycemia, requiring [...] 7:05 AM EDT Associated Problem(s): Septic shock ([facility]/HCC) Septic shock secondary to necrotizing fascitis. [...] Active Airway None Output by Drain (mL) 07/16/25699 - 07/16/25185807/16/251899 - 07/17/25 0659 07/17/25699 - 07/17/25185807/17/251899 - 07/18/25 0659 07/18/25 07 - 07/18/25 [...] Review Outcome: Ongoing, Progressing Flowsheets Taken 07/18/2025 020 by Inessa Almazan RN Progress: improving Taken [...] Ongoing, Progressing Intervention: Promote Activity and Functional [place] Flowsheets (Taken 07/18/2025204) Activity Assistance Provided: assistance, [...] Ongoing, Progressing Intervention: Promote Activity and Functional [place] Flowsheets Taken 07/16/2025 0635 by Yessenia Ramirez [...] pattern promoted * Progress Notes - Kathy Morris, GLORIA - 07/17/2025 5:54 PM EDT Endocrine - [...] HLD, celiac disease who initially came to [facility] on 07/08/2025 as transfer with [...] to establish care with endocrine provider in [place], [place]. --> Provided patient with address and number of clinic. [[facility] Endocrinology Clinic in the [facility] Physician Building]. -Tentative discharge recommendations: Likely resume [...] via secure chat or page us at [phone] during 7a-7p, Tuesday-Tuesday. For after hours please [...] care close to her sisters house in [place]. CM notified. * Assessment & Plan Note - Jason Andre MD - 07/17/2025 10:21 AM EDT Associated Problem(s): Necrotizing fasciitis ([facility]) - 07/09: debridement of necrotizing fasciitis in [...] AM EDT Associated Problem(s): DM (diabetes mellitus) ([facility]) - Patient presenting with significant hyperglycemia, requiring an insulin drip on admission. - Currently off insulin drip Pharmacy to dose insulin Glargine 10U, Lispro correction and nighttime dosing. Carbohydrate restricted diet * Assessment & Plan Note - Jaosn Andre MD - 07/17/2025 10:21 AM EDT Associated Problem(s): Hidradenitis Follows with outpatient provider * Assessment & Plan Note - Jason Andre MD - 07/17/2025 10:21 AM EDT Associated Problem(s): Smoker - Patient smokes 0.5-1ppd. - Smoking cessation when appropriate. * Assessment & Plan Note - Jason Andre MD - 07/17/2025 10:21 AM EDT Associated Problem(s): Chronic obstructive pulmonary disease, unspecified ([facility]) Complicates care. Continue Albuterol and DuoNebs. 3L [...] Morbid (severe) obesity due to excess calories ([facility]) Complicates all aspect of care * Assessment [...] 10:21 AM EDT Associated Problem(s): Postoperative pain [facility] * Progress Notes - Jason Andre [...] Drain (mL) 07/15/25 07 - 07/15/25 18507/15/25 1900 - 07/16/25 0659 07/16/25 0700 - [...] night Postoperative pain [facility] Present on Admission: Unknown [...] admission Level of Mobility Ambulatory- community Mobility [place] Independent gait without device History of Falls [...] motivated and engaged throughout Visitors Present None Dairy Bar Manager (if applicable) OBJECTIVE PAIN Rates pain at [...] needed areas of treatment space Level of [place] Interventions: Feeding Independent Edge of bed Patient [...] Level of Assistance: Moderate assistance Adaptive Equipment: Bleacher Pulp, Sock aide Training and demonstration provided for use and functionality of sock aid, leg compounding technician strap and grants assistant tool to support independence with LB dressing, [...] and prioritizing during ADL performance. Access Code: [email or web address] URL: [email or web address] Putting On Socks with a Sock Aid Putting On and Taking Off Pants Using a Bleacher Pulp Using a Leg Monitor Tech Adaptive Equipment for Bathing & Showering Understanding Energy Conservation BED MOBILITY Level of [place] Physical/Non- physical Assist Adaptive Equipment Utilized Supine to Sit Modified [place] Bed rails TRANSFERS Level of [place] Physical/Non- physical Assist Adaptive Equipment Utilized Sit [...] admission Level of Mobility Ambulatory- community Mobility [place] Independent gait without device History of Falls [...] unaware when pt may be discharged from [facility]. Dairy Bar Manager (if applicable) Not Applicable OBJECTIVE & INTERVENTIONS [...] pt's true mobility BED MOBILITY Level of [place] Physical/Non- physical Assist Adaptive Equipment Utilized Rolling/ Turning Scooting/ Bridging Supine to Sit Modified [place] Bed rails Sit to Supine Interventions TRANSFERS Level of [place] Physical/Non- physical Assist Adaptive Equipment Utilized Sit to Stand Stand-by assist Supervision Rollator Stand to sit Stand-by assist Supervision Rollator Bed to Chair Toilet Transfer Shower Transfer Interventions BALANCE Postural Appearance Posture: Forward head, Rounded shoulders Level of [place] Balance Support Interventions Static Sit Standby assist Feet supported Dynamic Sit Contact guard Feet supported Dynamic Sitting-Balance: Lateral weight shifts, Anterior/Posterior weight shifts Static Stand Contact guard Right upper extremity support, Left upper extremity support Standing in room prior to ambulation Dynamic Stand Contact guard Right upper extremity support, Left upper extremity support 3 bouts of approx 1 min each AMBULATION Level of [place] Distance Adaptive Equipment Utilized Ambulation Contact guard [...] Injury Flowsheets Taken 07/16/2025 2200 by Eulalia Estrada, RN Body Position: heels elevated legs elevated Taken 07/16/2025 0635 by Yessenia Ramirez Skin Protection: (rue) pulse oximeter probe site changed Intervention: Prevent and Manage VTE (Venous Thromboembolism) Risk Flowsheets (Taken 07/17/2025 0450) VTE Prevention/Management: medication Intervention: Prevent Infection Flowsheets (Taken 07/16/2025 0129) Infection Prevention: hand hygiene promoted rest/sleep promoted [...] Flowsheets (Taken 07/14/2025 1800 by Josi Ann, NAHID) Trust Relationship/Rapport: care explained choices provided emotional [...] Ongoing, Progressing Intervention: Promote Activity and Functional [place] Flowsheets Taken 07/16/2025 0635 by Yessenia Ramirez [...] promoted Taken 07/14/2025 1800 by Josi Ann senior engineering technician/Support System Care: support provided Goal: Optimal Functional [...] Intervention: Optimize Nutrition Delivery Flowsheets (Taken 07/16/2025 180 by Isha Colunga RN) Nutrition Support Management: [...] encouraged Taken 07/14/2025 1800 by Josi Ann, sign maker Review/Management: medications reviewed Intervention: Promote Injury-Free Environment Flowsheets (Taken 07/16/2025 1700 by Diego Munroe) Safety Promotion/Fall Prevention: safety round/check completed nonskid shoes/slippers when out of bed mobility aid in reach room organization consistent clutter-free environment maintained assistive device/personal items within reach Problem: Self-Care Deficit Goal: Improved Ability to Complete Activities of Daily Living Outcome: Ongoing, Progressing Intervention: Promote Activity and Functional [place] Flowsheets Taken 07/16/2025 0635 by Yessenia Ramirez [...] promoted Taken 07/14/2025 1800 by Josi Ann senior engineering technician/Support System Care: support provided Goal: Optimal Functional [...] 07/16/20251807 by Isha Colunga RN Flowsheets (Taken 07/16/2025 [...] Outcome: Ongoing, Progressing Intervention: Optimize Nutrition Delivery 07/16/20251809 by Isha Colunga RN Flowsheets (Taken 07/16/2025 1808) Nutrition Support Management: weight trending reviewed 07/16/2025 180 by Isha Colunga RN Flowsheets (Taken 07/16/2025 1808) Nutrition Support Management: weight trending reviewed Problem: Skin Injury Risk Increased Goal: Skin Health and Integrity Outcome: Ongoing, Progressing Intervention: Optimize Skin Protection 07/16/20251809 by Isha Colunga RN Flowsheets (Taken 07/16/2025 1808) Activity Management: ambulated to bathroom 07/16/2025 1808 by Isha Colunga RN Flowsheets (Taken 07/16/2025 1808) Activity Management: ambulated to bathroom Intervention: Promote and Optimize Oral Intake 07/16/20251809 by Isha Colunga RN Flowsheets (Taken 07/16/2025 0129 by Eulalia Estrada, RN) Oral Nutrition Promotion: adaptive equipment use encouraged rest periods promoted 07/16/2025 180 by Isha Colunga RN Flowsheets (Taken 07/14/2025 1800 by Josi Ann, RN) Nutrition Interventions: frequent small meals provided supplemental drinks provided Problem: Infection Goal: Absence of Infection Signs and Symptoms Outcome: Ongoing, Progressing Intervention: Prevent or Manage Infection 07/16/20251809 by Isha Colunga RN Flowsheets Taken 07/16/2025 0900 by Denia Boo RN Isolation Precautions: precautions maintained Taken 07/15/2025 1325 by Sophia Salazar, RN Infection Management: aseptic technique maintained 07/16/2025 1808 by Ihsa Colunga RN Flowsheets (Taken 07/15/2025 1325 by [...] RN Flowsheets (Taken 07/14/2025 1800 by Josi nAn RN) Medication Review/Management: medications reviewed Problem: Self-Care Deficit Goal: Improved Ability to Complete Activities of Daily Living Outcome: Ongoing, Progressing Intervention: Promote Activity and Functional [place] Flowsheets (Taken 07/16/2025 0129 by Eulalia Estrada, NAHID) Self-Care Promotion: independence encouraged BADL personal objects within reach BADL personal routines maintained adaptive equipment use encouraged Problem: Wound Goal: Optimal Coping Outcome: Ongoing, Progressing Intervention: Support Patient and Family Response Flowsheets (Taken 07/16/2025 0129 by Eulalia Estrada, NAHID) Supportive Measures: active [...] Prevent or Manage Pain Flowsheets Taken 07/16/2025 181 by Isha Colunga RN Sleep/Rest Enhancement: regular [...] Intervention: Promote Wound Healing Flowsheets (Taken 07/16/2025 181) Sleep/Rest Enhancement: regular sleep/rest pattern promoted * Progress Notes - Annie Littlejohn - 07/16/2025 3:01 PM EDT SW received call from [employer] offering assistance for d/c planning. Her Callback #[phone] * Progress Notes - Sherrill Villa APRN [...] to establish care with endocrine provider in [place], [place]. --> Provided patient with address and number of clinic. [[facility] Endocrinology Clinic in the [facility] Physician Building]. -Tentative discharge recommendations: Likely resume [...] team via secure chat orpage us at [phone] during 7a-7p, Tuesday-Tuesday. For after hours please [...] AM EDT Associated Problem(s): DM (diabetes mellitus) ([facility]) - Patient presenting with significant hyperglycemia, requiring [...] Associated Problem(s): Chronic obstructive pulmonary disease, unspecified (CMS/[facility]) Complicates care. Continue Albuterol and DuoNebs. 3L [...] Morbid (severe) obesity due to excess calories ([facility]/HCC) Present on Admission: Yes Complicates all aspect [...] night Postoperative pain Present on Admission: Unknown [facility] Non-Hospital Problems Carpal tunnel syndrome Dehydration [...] Person-Centered Care Flowsheets (Taken 07/14/2025 1800 by Falls, Josi M, RN) Trust Relationship/Rapport: care explained choices provided [...] encouraged Taken 07/14/2025 1800 by Josi Ann, sign maker Review/Management: medications reviewed Intervention: Promote Injury-Free Environment Flowsheets (Taken 07/16/2025 0054) Safety Promotion/Fall Prevention: activity supervised assistive device/personal items within reach clutter-free environment maintained fall prevention program maintained nonskid shoes/slippers when out of bed room organization consistent safety round/check completed Problem: Self-Care Deficit Goal: Improved Ability to Complete Activities of Daily Living Outcome: Ongoing, Progressing Intervention: Promote Activity and Functional [place] Flowsheets (Taken 07/16/2025128) Self-Care Promotion: independence encouraged [...] Ongoing, Progressing Intervention: Promote Activity and Functional [place] Flowsheets Taken 07/15/2025 1745 by Denia Boo RN Activity Assistance Provided: assistance, stand-by Taken 07/14/20252310 by Rtia Alejandro RN Adaptive [...] AM EDT Adult Nutrition Evaluation Note Cristina Escobar Kevin 50 y.o. female CSN: [id number] Room/Bed 123/123A Nutrition evaluation type: follow-up Reason for evaluation: Hospital course: 50 y o F transferred from [facility] with concern for necrotizing fasciitis; OR 07/08 for excisional debridement of RLE, groin, pubis, and abdominal wall of skin, subcutaneous tissue, and muscle fascia, [id number]. Septic shock secondary to NSTI. Intubated & [...] Supplemental oxygen O2 Delivery Method: Nasal cannula [place] Coma Scale Score: 15 Julián Scale Score: [...] Estimated Needs: Kcal: 25-27 kcal/kg adj bw (2764-3137 kcal/d) Protein: 1.5-1.7 g/kg adj bw (143-162 [...] Anxiety Asthma Carpal tunnel syndrome Depression Diabetes ([facility]) H/O absence seizures Hidradenitis High cholesterol Hypertension [...] Note Cristina Brown 50 y.o. female CSN: [id number] Admission: 07/08/2025 5:58 PM Primary Problem: Necrotizing fasciitis (CMS/HCC) Survey Technologist reviewed chart and spoke with patient to complete this Initial Case Management Assessment. PCP: Yenny Dhillon APRN Emergency Contact: Extended Emergency Contact Information Primary Emergency Contact: [place]enia [place] Mobile Relation: Sister Preferred language: Hong [place]er Dairy Bar Manager needed? No Secondary Emergency Contact: Arnoldo Raymond [address]: [address] [place] [address] [place] Mobile Relation: Significant Other Preferred language: [place] Dairy Bar Manager needed? No Insurance: Primary Visit Coverage Payer Plan Sponsor Code Group Number Group Name [facility] MEDICAID [facility] MEDICAID [place] Primary Visit Coverage Subscriber Subscriber ID Subscriber Name Subscriber SSN Subscriber Address [id number] CRISTINA BROWN [id number] [place] [address] Patient information: Primary Caregiver: Self Accompanied by/Relationship: Arnoldo Raymond- significant other Support System: Immediate family, Extended family, Friends Daily Living Activities: Functional Status: Minimum assistance Living Arrangements: Family, Friends Type of Residence: Private residence [address] [place] [address] Smoker in the Home?: Yes Current DME: Equipment Currently Used at Home: none Income Information: Income Source: Unemployed Income/Expense Information: Expenses exceed income Current Resources Utilized: Food [place] Housing Circumstances-Z Codes: Housing Circumstances (select all [...] Dialysis Services: N/A Living Will/Advance Directive/Power of Fuel System Maintenance Supervisor /Guardian: N/A Additional Comments: Pt gets her medications from [facility] [place] * Consults - Anupama Braun MBBS [...] HLD, celiac disease who initially came to [facility] on 07/08/2025 as transfer with [...] after discharge close [place] her [place]. She agrees to call and make appointment [...] Endocrinology referral - patient requested to see fiscal assistant in [place], [place]. Provided patient with address and number of clinic. [[facility] Endocrinology Clinic in the [facility] Physician Building]. Patient has been on insulin [...] AM EDT Associated Problem(s): DM (diabetes mellitus) ([facility]) - Patient presenting with significant hyperglycemia, requiring [...] Associated Problem(s): Chronic obstructive pulmonary disease, unspecified ([facility]) Complicates care. Continue Albuterol and DuoNebs. 3L [...] night Postoperative pain Present on Admission: Unknown [facility] Non-Hospital Problems Carpal tunnel syndrome Dehydration Hidradenitis suppurativa History of hysterectomy Marijuana smoker Pharyngitis Type 2 diabetes mellitus Overview Signed 08/31/2023 9:36 AM by Janell Bueno Last Assessment & Plan: Condition: stable Discussed glucose control targets. Educated on: Lifestyle changes Follow up in: three months with PCP Vitamin D deficiency Overview Signed 08/31/2023 9:36 AM by Jaenll Bueno Last Assessment & Plan: Condition: stable [...] Oral Intake Flowsheets (Taken 07/14/20251799 by Josi Ann RN) Oral Nutrition Promotion: calorie-dense foods provided rest periods promoted Nutrition Interventions: frequent small meals provided supplemental drinks provided Problem: Self-Care Deficit Goal: Improved Ability to Complete Activities of Daily Living Outcome: Ongoing, Progressing Intervention: Promote Activity and Functional [place] Flowsheets Taken 07/14/20252310 by Rita Alejandro RN [...] schedule promoted * Care Plan - Josi Ann, RN - 07/14/2025 6:15 PM EDT Problem: [...] Ongoing, Progressing Intervention: Promote Activity and Functional [place] Flowsheets (Taken 07/14/2025 1800) Activity Assistance Provided: [...] PM EDT Operative Note Date: 07/14/25 Location: [facility] Name: Cristina Brown, : 1975, Diagnoses: Pre-op Diagnosis Necrotizing fasciitis (CMS/HCC) Post-op Diagnosis Necrotizing fasciitis (CMS/HCC) Procedure(s): Wound irrigation Partial wound closure, total closed 30 cm length Attending Surgeon(s): * Anne Franco - Primary Plate Painter Apprentice(s): * Janell Cross MD - Resident - [...] (mL) 30 mL 07/14/25 1625 [REMOVED] NG/OG [facility] mouth (Removed) Placement Verification [...] (mL) 49 mL 07/10/25 0000 [REMOVED] NG/OG [facility] 14 Fr Left nostril (Removed) Placement [...] portions of the procedure(s) and immediately available [facility] the entire duration. See [...] Associated Problem(s): Chronic obstructive pulmonary disease, unspecified ([facility]/HCC) Complicates care. Continue Albuterol and DuoNebs. [...] 7:31 AM EDT Associated Problem(s): Septic shock ([facility]/HCC) Septic shock secondary to necrotizing fascitis. [...] and tobacco use disorder, and newly diagnosed JOSPE who presented to the emergency department with [...] night Postoperative pain Present on Admission: Unknown [facility] Non-Hospital Problems Carpal tunnel syndrome Dehydration [...] clutter-free environment maintained assistive device/personal items within [facility] fall prevention program maintained nonskid shoes/slippers [...] Ongoing, Progressing Intervention: Promote Activity and Functional [place] Flowsheets (Taken 07/13/20251826) Activity Assistance Provided: assistance, [...] Note Cristina Brown 50 y.o. female CSN: [id number] Admission: 07/08/2025 5:58 PM Primary Problem: Necrotizing fasciitis (CMS/HCC) Survey Technologist reviewed chart and spoke with Irinadiann to complete this Initial Case Management Assessment. PCP: Yenny Dhillon APRN Emergency Contact: Extended Emergency Contact Information Primary Emergency Contact: JayaYecenia Mobile Relation: Sister Preferred language: [place]er Dairy Bar Manager needed? No Secondary Emergency Contact: Arnoldo Raymond Address: [address] [place] [address] Mobile Relation: Significant Other Preferred language: [place]er Dairy Bar Manager needed? No Insurance: Primary Visit Coverage Payer Plan Sponsor Code Group Number Group Name [employer] [place]ID [employer] [place] Primary Visit Coverage Subscriber Subscriber ID Subscriber Name Subscriber N Subscriber Address [id number] CRISTINA BROWN [id number] [place] [address] Patient information: Primary Caregiver: Self Accompanied by/Relationship: Arnoldo Raymond- significant other Support System: Immediate family Daily Living Activities: Functional Status: Independent Living Arrangements: Spouse/Significant other Type of Residence: Private residence [address] [place] [address] Current DME: Equipment Currently Used at Home: none Income Information: Housing Circumstances-Z Codes: Patient Referred to: Anticipated Discharge Date: unknown Patient's Discharge Goal: Referrals sent for Acute Rehab Assistance Available at Discharge: Arnoldo Raymond Discharge Transport: Arnoldo Raymond Follow Up Transport: Arnoldo raymond Home Health / Home Infusion / Outpatient Dialysis Services: none Living Will/Advance Directive/Power of Fuel System Maintenance Supervisor /Guardian: Additional Comments: AMIRA discussed acute rehab placement with Carmen Raymond. Their first choice is [facility] in [place], [place]. CM sent referrals in [facility]. Cristina will continue inpatient management for necrotizing fascitis in right lower extremity until placement in acute rehab. Cristina has support once discharged from acute rehab at home. Cristina does have concerns if she needs to move and may need resources. [facility] Marilee [...] PM EDT Associated Problem(s): DM (diabetes mellitus) ([facility]) - Patient presenting with significant hyperglycemia, requiring [...] admitted 07/08/2025 for work-up of Necrotizing fasciitis ([facility]). Problem List Active Hospital Problems Diagnosis Date Noted Postoperative pain 07/13/2025 JOSEP (obstructive sleep apnea) 07/11/2025 HLD (hyperlipidemia) 07/10/2025 Acute respiratory failure 07/09/2025 Septic shock ([facility]) 07/09/2025 Absence seizure ([facility]/HCC) 07/09/2025 DM (diabetes mellitus) (CMS/HCC) 07/08/2025 Hidradenitis 07/08/2025 HTN (hypertension), benign 08/31/2023 Urge incontinence 08/31/2023 Smoker 06/09/2023 Depression 06/09/2023 Morbid (severe) obesity due to excess calories (CMS/[facility]) 02/15/2022 Chronic obstructive pulmonary disease, unspecified (CMS/[facility]) 01/09/2022 Necrotizing fasciitis ([facility]) 07/08/2025 Procedures 07/11/2025 Procedure(s): APPLICATION OR REPLACEMENT, [...] evaluation. Participants in Care Family/Caregiver Present: No Dairy Bar Manager: Not Applicable Presentation Oxygen Therapy: Supplemental oxygen [...] admission Level of Mobility: Ambulatory- community Mobility [place]: Independent gait without device History of Falls: [...] Mobility Bed Mobility Exam: Scooting/Bridging Level of [place]: Contact guard (seated scoot once sitting up on EOB and able to wiggle back into recliner chair) Bed Mobility Exam: Supine to Sit Level of [place]: Moderate assist (50% patient's effort) Physical/Nonphysical Assist: Verbal Cues, Moderate cues, Additional assist utilized for safety, HOBelevated Assistive Device: Other (BARREL LAPPER x2) Transfers Transfer Interventions: Patient performed sit < > stand x 3 reps total: Mod A from EOB, Min Afrom recliner chair, and CGA from BSC. Transfer Exam: Sit to stand Level of [place]: Minimum assist (75% patient's effort) Physical/Nonphysical Assist: Verbal Cues, Minimal cues Assistive Device: Walker, rolling (andrea) Transfer Exam: Stand to Sit Level of [place]: Minimum assist (75% patient's effort) Physical/Nonphysical Assist: Verbal Cues, Minimal cues Assistive Device: Walker, rolling (andrea) Transfer Exam: Bed to Chair/Chair to Bed Level of [place]: Minimum assist (75% patient's effort) Physical/Nonphysical Assist: Verbal Cues, Minimal cues, Additional assist utilized for safety Type of Transfer: Sidesteps (bed > chair < > BSC) Assistive Device: Walker, rolling (andrea) Toilet Transfer Level of [place]: Minimum assist (75% patient's effort) Physical/Nonphysical Assist: [...] to allow bedside care to take placed (EMERGING TECHNOLOGIES DIRECTOR entering to take vitals; RN enforcing bandages [...] further toileting ADL needs. Standardized Assessments [facility] 6-Click Daily Activities Help from Other: Don/Doff Regular Lower Body Clothings: A lot Help From Other: Bathing: A lot Help From Other: Toileting: A lot Help From Other: Don/Doff Upper Body Clothings: Little Help From Other: Grooming: None Help From Other: Eating Meals: None [facility] 6 Click - Daily Activities Score: 17 [...] admitted 07/08/2025 for work-up of Necrotizing fasciitis ([facility]). Problem List Active Hospital Problems Diagnosis Date [...] of Anxiety, Asthma, Carpal tunnel syndrome, Depression, Diabetes([facility]), H/O absence seizures, Hidradenitis, High cholesterol, Hypertension, [...] move. Participants in Care Family/Caregiver Present: No Dairy Bar Manager: Not Applicable Presentation Oxygen Therapy: Supplemental oxygen [...] admission Level of Mobility: Ambulatory- community Mobility [place]: Independent gait without device History of Falls: [...] Mobility Bed Mobility Exam: Scooting/Bridging Level of [place]: Contact guard (seated scoot once sitting up on EOB and able to wiggle back into recliner chair) Bed Mobility Exam: Supine to Sit Level of [place]: Moderate assist (50% patient's effort) Physical/Nonphysical Assist: Verbal Cues, Moderate cues, Additional assist utilized for safety, HOBelevated Assistive Device: Other (BARREL LAPPER x 2) Transfers Transfer Interventions: Patient performed sit < > stand x 3 reps total: Mod A from EOB, Min Afrom recliner chair, and CGA from BSC. Cues for safe hand placement during transitions using RW. Transfer Exam: Sit to stand Level of [place]: Minimum assist (75% patient's effort) Physical/Nonphysical Assist: Verbal Cues, Minimal cues Assistive Device: Walker, rolling (andrea) Transfer Exam: Stand to Sit Level of [place]: Minimum assist (75% patient's effort) Physical/Nonphysical Assist: Verbal Cues, Minimal cues Assistive Device: Walker, rolling (andrea) Transfer Exam: Bed to Chair/Chair to Bed Level of [place]: Minimum assist (75% patient's effort) Physical/Nonphysical Assist: Verbal Cues, Minimal cues, Additional assist utilized for safety Type of Transfer: Sidesteps (bed > chair < > BSC) Assistive Device: Walker, rolling (andrea) Toilet Transfer Level of [place]: Minimum assist (75% patient's effort) Physical/Nonphysical Assist: [...] assistance Standardized Assessments Standardized Assessments Standardized Assessments: [facility] 6-Clicks Mobility Assessment [facility] 6-Clicks Mobility Assessment Difficulty patient [...] climbing 3-5 steps with a railing?: Unable [facility] 6-Clicks Mobility Assessment Total : [...] anxiety, asthma, HLD, celiac disease, presenting to [facility] on 07/08/2025 as transfer with [...] so will be discharged to [facility]. * Assessment & Plan Note - [...] 0659 07/12/25 07 - 07/12/25 1859 07/12/25 1900 [...] night Postoperative pain Present on Admission: Unknown [facility] Non-Hospital Problems Carpal tunnel syndrome Dehydration [...] by Rita Alejandro RN Progress: improving Taken 07/12/2025339 by Jf Cruz Plan of Care Reviewed [...] 07/11: wound washout, no debridement necessary Overnight: JUANITOEON. Interval: Weaning of high flow nasal canula. [...] Airway None O2 Delivery Method: Nasal cannula DE SUP: 10 cm H20 Insp Time (sec): 1 sec FiO2 (%): 40 % S RR: 20 DE SUP: 10 cm H20 Output by Drain (mL) 07/10/25 0700 - 07/10/25 1859 07/10/25 190 - 07/11/25 0659 07/11/25 07 - 07/11/25 1859 07/11/2507/12/25 0659 07/12/25 0700 - 07/12/25 1403 Requested [...] - Improving, continue to monitor Septic shock ([facility]) Yes Overview Addendum 07/12/2025 1:55 PM by [...] saw and evaluated the patient with the medical/INTERNAL AUDIT CONSULTANT/PA student. I discussed the case with the medical/INTERNAL AUDIT CONSULTANT/PA student and agree with the findings [...] PM EDT Operative Note Date: 07/11/25 Location: [facility] Name: Cristina Brown, : 1975, Diagnoses: Pre-op Diagnosis Necrotizing fasciitis (CMS/HCC) Post-op Diagnosis Necrotizing fasciitis (CMS/HCC) Procedure(s): Right groin/perineum/thigh/abdominal wound exploration and washout Attending Surgeon(s): * Dorcas Hennessy - Primary Plate Painter Apprentice(s): * Janell Cross MD - Resident - [...] Note Cristina Brown 50 y.o. female CSN: [id number] Room/Bed 133/133A Nutrition evaluation type: follow-up Reason for evaluation: Hospital course: 50 y o F transferred [facility] with concern for necrotizing fasciitis; OR 07/08 for excisional debridement of RLE, groin, pubis, and abdominal wall of skin, subcutaneous tissue, and muscle fascia, [id number]. Septic shock secondary to NSTI. Intubated & [...] Estimated Needs: Kcal: 25-27 kcal/kg adj bw (1267-7471 kcal/d) Protein: 1.5-1.7 g/kg adj bw (143-162 [...] -will monitor NPO duration -po per MD/ SNACK BAR CASHIER -when po diet appropriate, rec CC3, Gluten [...] Vent Status (ETT, Trach Only): In use DE SUP: 5 cm H20 Insp Time (sec): 1.5 sec Vent Mode: PS FiO2 (%): 60 % S RR: 14 DE SUP: 5 cm H20 MAP (cm H2O): 9 Output by Drain (mL) 07/09/25 07 - 07/09/25 18507/09/25 190 - 07/10/25 0659 07/10/25 07 - [...] as tolerated. Chronic obstructive pulmonary disease, unspecified ([facility]/HCC) (Chronic) Yes Overview Addendum 07/11/2025 9:23 AM by Gabriel Segovia care. - Continue Albuterol and DuoNebs. -Pulm [...] Morbid (severe) obesity due to excess calories ([facility]) (Chronic) Yes Overview Addendum 07/11/2025 9:31 AM by Gabriel Segovia - Alondras care. - Counseling when appropriate. Smoker (Chronic) Yes Overview Signed 07/09/2025 3:05 PM by Lidia Ellis MD - Patient smokes 0.5-1ppd. - Smoking cessation when appropriate. Urge incontinence (Chronic) Yes DM (diabetes mellitus) ([facility]) (Chronic) Yes Overview Addendum 07/09/2025 4:11 PM by Lidia Ellis MD - Patient hyperglycemic, up to 300s. - Insulin drip per protocol. Hidradenitis (Chronic) Yes Absence seizure ([facility]) (Chronic) Yes Overview Addendum 07/11/2025 9:20 AM [...] Cheyanne Chakraborty MD at 07/11/2025 0839 Gabriel [facility] Performed by: Dorcas Hennessy MD [...] Intervention: Ensure Effective Communication Flowsheets Taken 07/11/2025 011 by Cheyanne Briceño RN Diversional Activities: television [...] Protection Flowsheets Taken 07/11/2025 0030 by Cheyanne Briecño, RN Skin Protection: incontinence pads utilized Taken [...] Skin and Joint Integrity Flowsheets Taken 07/11/2025 011 Body Position: turned Taken 07/11/20250 Skin Protection: incontinence pads utilized Taken 07/11/2025 [...] PM EDT Operative Note Date: 07/10/25 Location: [facility] Name: Cristina Brown, : 1975, Diagnoses: Pre-op Diagnosis Necrotizing fasciitis (CMS/HCC) Post-op Diagnosis Necrotizing fasciitis (CMS/HCC) Procedure(s): Right groin/perineum/thigh/abdominal wound exploration, debridement, and washout Attending Surgeon(s): * Dorcas Hennessy - Primary Plate Painter Apprentice(s): * Shelby Whittington MD - Resident - [...] 2342 Estimated Blood Loss: Minimal Drains: NG/OG [place] Sump 14 Fr Left nostril (Active) Placement [...] Findings: All viable tissue. Wound measuring approximately [id number]. Packed with 5 kerlix tied together. Indications: Cristina Brown is an 50 y.o. female who is having surgery for Necrotizing fasciitis ([facility]/HCC). Patient presented in septic shock secondary [...] (CMS/HCC) Surgical ICU Daily Progress Note 07/10/25 Nedia R Kevin HPI 50-year-old female with past medical history [...] Edited by: Lidia Ellis MD at 07/10/2025 3625 Relevant review of systems was obtained as [...] Vent Status (ETT, Trach Only): In use DE SUP: 5 cm H20 Insp Time (sec): 1.5 sec Vent Mode: PS FiO2 (%): 50 % S RR: 14 DE SUP: 5 cm H20 MAP (cm H2O): 9 Output by Drain (mL) 07/08/25 07 - 07/08/25 1859 07/08/25 1900 - 07/09/25 0659 07/09/25 07 - 07/09/25 1859 07/09/25 1900 - 07/10/25 0659 07/10/25 0700 - 07/10/25 1859 07/10/25 190 - 07/10/25 190 Requested LDAs do [...] Morbid (severe) obesity due to excess calories ([facility]) Yes Overview Addendum 07/09/2025 4:07 PM by Lidia Ellis MD Complicates care. Smoker Yes Overview Signed 07/09/2025 3:05 PM by Lidia Ellis MD - Patient smokes 0.5-1ppd. - Smoking cessation when appropriate. Urge incontinence Yes DM (diabetes mellitus) ([facility]/HCC) Yes Overview Addendum 07/09/2025 4:11 PM [...] respiratory support. Wean as tolerated. Septic shock ([facility]/HCC) Yes Overview Addendum 07/10/2025 4:53 PM [...] for outside parameter Switch to plov from [place] Started Vaso and gave 1L this AM [...] Protection: absorbent pad utilized/changed positioning supports utilized yhka-vg-ekklqz areas padded uvrt-eg-hnga areas padded Problem: Skin Injury Risk Increased [...] Note Cristina Brown 50 y.o. female CSN: [id number] Room/Bed 133/133A Nutrition evaluation type: assessment Reason for evaluation: provider consult Hospital course: 50 y o F transferred from OSH with concern for necrotizing fasciitis; OR 07/08 for excisional debridement of RLE, groin, pubis, and abdominal wall of skin, subcutaneous tissue, and muscle fascia, [id number]. Septic shock secondary to NSTI. Intubated & [...] oz) Estimated Needs: Kcal: 22-25 kcal/kg IBW (3112-7425 kcal/d) Protein: 2-2.5 g/kg IBW (136-171 g/d) [...] decreased. Palpations: Abdomen is soft. Skin: Comments: [id number] open wound with no extension of cellulitis. [...] PEEP (cmH2O): 18 S VT: 450 mL DE SUP: 10 cm H20 Insp Time (sec): 0.8 sec Vent Mode: PS FiO2 (%): 50 % S RR: 22 S VT: 450 mL DE SUP: 10 cm H20 MAP (cm H2O): [...] respiratory support. Wean as tolerated. Septic shock (CMS/[facility]) Yes Overview Signed 07/09/2025 3:58 PM by [...] Morbid (severe) obesity due to excess calories ([facility]) Yes Overview Addendum 07/09/2025 4:07 PM by Lidia Ellis MD Complicates care. Smoker Yes Overview Signed 07/09/2025 3:05 PM by Lidia Ellis MD - Patient smokes 0.5-1ppd. - Smoking cessation when appropriate. Urge incontinence Yes DM (diabetes mellitus) ([facility]/HCC) Yes Overview Addendum 07/09/2025 4:11 PM by Lidia Ellis MD - Patient hyperglycemic, up to 300s. - Insulin drip per protocol. Hidradenitis Yes Absence seizure ([facility]) (Chronic) Yes Overview Addendum 07/09/2025 4:08 PM [...] PM EDT Operative Note Date: 07/08/25 Location: [facility] Name: Cristina Brown, : 1975, Diagnoses: Pre-op Diagnosis Necrotizing fasciitis (CMS/HCC) Post-op Diagnosis Necrotizing fasciitis (CMS/HCC) Procedure(s): Excisional debridement of right thigh, groin pubis and abdominal wall including skin, subcutaneous tissue and fascia measuring 65 x 20 x 2cm Attending Surgeon(s): * Luanne Crawford - Primary Plate Painter Apprentice(s): * Kristy Fields MD - Resident - [...] 07/08/2025 9:01 PM EDT Date: 07/09/25 Location: [facility] Name: Cristina Brown, : 1975, Diagnoses: Pre-op Diagnosis Necrotizing fasciitis (CMS/HCC) Post-op Diagnosis Necrotizing fasciitis (CMS/HCC) Procedure(s): Excisional debridement of right lower extremity, groin, pubis, and abdominal wall of skin, subcutaneous tissue, and muscle fascia, 65x20 cm Attending Surgeon(s): * Luanne Crawford - Primary Plate Painter Apprentice(s): * Kristy Fields MD - Resident - [...] anxiety, asthma, HLD, celiac disease, presenting to [facility] on 07/08[facility]2025 as transfer with concern [...] Anxiety, Asthma, Carpal tunnel syndrome, Depression, Diabetes (CMS/[facility]), H/O absence seizures, Hidradenitis, High cholesterol, Hypertension, [...] Morbid (severe) obesity due to excess calories ([facility]/HCC) Overview Signed 08/31/2023 9:36 AM by [...] mL IVPB (vial adapter required) 2 g [id number] Deepthi Garcia MD linezolid (Zyvox) injection 600 [...] ppd), asthma, HLD, celiac disease, presenting to [facility] on 07[facility]25 as transfer with [...] 07/08/2025 195 Date/Time Order Dose Route Action 07/08/20251815 EDT [...] 4% (Hibiclens). Acknowledged AMINA RAMIREZ 07/08/251916 Void precision lens generator to OR Once Acknowledged AMINA RAMIREZ 07/08/251916 [...] Course as of 07/09/25 0133 TueJul 08, 2025 181 Upon arrival patient was [...] elevated [MR] 2000 C-Reactive protein(!) elevated [MR] e Jul 09, 2025 013 Blood cultures ordered and [...] None Disposition Admit Admitting/Attending Physician: LUANNE CRAWFORD [[id number]] Provider Care Team: [facility] GENERAL SURGERY [...] Description 08/20/2025 10:30 AM EDT Office Visit [facility] General Surgery [address] [place] [address] Lilliana Morfin, MOLD BU[employer]DER [address] [place] [address] Scheduled Referrals Name Type Priority Associated Diagnoses Order Schedule Discharge Ambulatory referral to NON Endocrinology Outpatient Referral Routine Morbid (severe) obesity due to excess calories (CMS/[facility]) Type 2 diabetes mellitus with hyperglycemia, without long-term current use of insulin (CMS/[facility]) Celiac disease Expected: 07/15/2025 (Approximate), Expires: 01/16/2027 [...] UNSOLICITED RESULTS Routine 07/11/2025 9:57 AM EDT [facility], E/M 30-74 MINUTES Routine 07/11/2025 [...] ECG ADULT STAT 07/10/2025 8:42 AM EDT DE CRITICAL CARE, E/M 30-74 MINUTES Routine 07/10/2025 [...] CO2 MONITORING Routine 07/09/2025 8:00 AM EDT DE CRITICAL CARE, E/M 30-74 MINUTES Routine 07/09/2025 7:15 AM EDT Necrotizing fasciitis (CMS/[facility]) Morbid (severe) obesity due to excess calories (CMS/HCC) Septic shock (CMS/[facility]) Acute respiratory failure with hypoxia POCT GLUCOSE [...] PANEL, PLASMA STAT 07/08/2025 6:14 PM EDT [facility] CR[facility]ARE, E/M 30-74 MINUTES Routine 07/08/2025 [...] 07/19/2025 5:32 PM EDT [facility] [employer] ID Laura Baez 025 5:32 PM EDT [facility] Device ID [id number] 07/19/2025 5:32 PM EDT [facility] Specimen Type POC Capillary 07/19/2025 5:32 PM EDT [facility] Blood Capillary blood specimen / Unknown 07/19/2025 12:27 PM EDT 07/19/2025 5:32 PM EDT us Anne Franco MD LAB POINT OF CARE TEST DOCKED DEVICE UNSOLICITED RESULTS Final Result [facility] [address] [place] [id number] * Phosphorus (07/19/2025 4:28 AM EDT) Phosphorus, Plasma 3.6 2.5 - 4.5 mg/dL 07/19/2025 5:03 AM EDT [facility] Blood Venous blood specimen / Unknown Venipuncture / Unknown 07/19/2025 4:28 AM EDT 07/19/2025 4:35 AM EDT Anne Franco MD LAB BLOOD ORDERABLES Sarah l Result [facility] [address] [place] [address] * (ABNORMAL) Magnesium (07/19/2025 4:28 AM EDT) Pathologist [facility] Magnesium, Plasma 1.8(L) 1.9 - 2.4 mg/dL 07/19/2025 5:03 AM EDT [facility] Blood Venous blood specimen / Unknown Venipuncture / Unknown 07/19/2025 4:28 AM EDT 07/19/2025 4:35 AM EDT us Anne Franco MD LAB BLOOD ORDERABLES Sarah l Result Performing Organization Address City/[facility]/ZIP Co de Phone Number [facility] [address] [place] [address] * (ABNORMAL) CBC W/O Differential (07/19/2025 4:28 AM EDT) Pathologist [facility] WBC Count 18.39(H) 3.70 - 10.30 10*3/uL LAB HEMATOLOGY METHOD 07/19/2025 4:51 AM EDT [facility] RBC Count 3.50(L) 3.90 - 5.20 10*6/uL LAB HEMATOLOGY METHOD 07/19/2025 4:51 AM EDT [facility] HGB 9.6(L) 11.2 - 15.7 g/dL LAB HEMATOLOGY METHOD 07/19/2025 4:51 AM EDT [facility] HCT 30.7(L) 34.0 - 45.0 % LAB HEMATOLOGY METHOD 07/19/2025 4:51 AM EDT [facility] Platelet Count 627(H) 155 - 369 10*3/uL LAB HEMATOLOGY METHOD 07/19/2025 4:51 AM EDT [facility] MCV 88 79 - 98 fL LAB HEMATOLOGY METHOD 07/19/2025 4:51 AM EDT [facility] MCH 27.4 26.0 - 32.0 pg LAB HEMATOLOGY METHOD 07/19/2025 4:51 AM EDT [facility] MCHC 31.3 30.7 - 35.5 g/dL LAB HEMATOLOGY METHOD 07/19/2025 4:51 AM EDT [facility] RDW 18.2(H) 11.5 - 14.5 % LAB HEMATOLOGY METHOD 07/19/2025 4:51 AM EDT [facility] MPV 10.2 8.8 - 12.5 fL LAB HEMATOLOGY METHOD 07/19/2025 4:51 AM EDT [facility] nRBC 0.1(H) <=0.0 per 100 WBCs LAB HEMATOLOGY METHOD 07/19/2025 4:51 AM EDT [facility] Blood Venous blood specimen / Unknown Venipuncture / Unknown 07/19/2025 4:28 AM EDT 07/19/2025 4:36 AM EDT us Anne Franco MD LAB BLOOD ORDERABLES Sarah bennett Result [facility] [address] [place] [address] * (ABNORMAL) Basic metabolic panel (07/19/2025 4:28 AM EDT) Pathologist [facility] Glucose, Plasma 153(H) 74 - 99 mg/dL 07/19/2025 5:03 AM EDT [facility] BUN, Plasma 14 7 - 21 mg/dL 07/19/2025 5:03 AM EDT [facility] Creatinine, Plasma 0.73 0.60 - 1.10 mg/dL 07/19/2025 5:03 AM EDT [facility] BUN/Creatinine Ratio 19 07/19/2025 5:03 AM EDT [facility] Sodium, Plasma 137 136 - 145 mmol/L 07/19/2025 5:03 AM EDT [facility] Potassium, Plasma 4.3 3.6 - 4.9 mmol/L 07/19/2025 5:03 AM EDT [facility] Chloride, Plasma 97 97 - 107 mmol/L 07/19/2025 5:03 AM EDT [facility] CO2, Plasma 28 22 - 29 mmol/L 07/19/2025 5:03 AM EDT [facility] Anion Gap 12 6 - 16 mmol/L 07/19/2025 5:03 AM EDT [facility] Total Calcium, Plasma 9.0 8.9 - 10.2 mg/dL 07/19/2025 5:03 AM EDT [facility] eGFRcr 101.0 mL/min/1.7 3m*2 07/19/2025 5:03 AM EDT [facility] Comment:Reported eGFRcr in m L/min/1.73m2 is based the CKD-EPI 2020 equation that does not use a race coefficient. Blood Venous blood specimen / Unknown Venipuncture / Unknown 07/19/2025 4:28 AM EDT 07/19/2025 4:35 AM EDT us Anne Franco MD LAB BLOOD ORDERABLES Sarah bennett Result [facility] [address] [place] [address] * (ABNORMAL) POCT glucose meter (07/18/2025 8:33 [...] 07/18/2025 8:36 PM EDT [facility] [employer] ID Zach Martinez 8:36 PM EDT [facility] Device ID [id number] 07/18/2025 8:36 PM EDT [facility] Specimen Type POC Capillary 07/18/2025 8:36 PM EDT [facility] Blood Capillary blood specimen / Unknown 07/18/2025 8:33 PM EDT 07/18/2025 8:36 PM EDT Anne Franco MD LAB POINT OF CARE TEST DOCKED DEVICE UNSOLICITED RESULTS Final Result Performing Organization Address City/[facility]/ZIP Co de Phone Number [facility] [address] [place] [address] * (ABNORMAL) POCT glucose meter (07/18/2025 6:07 [...] 07/18/2025 6:08 PM EDT [facility] [employer] ID Monique Jacques 6:08 PM EDT [facility] Device ID [id number] 07/18/2025 6:08 PM EDT [facility] Specimen Type POC Capillary 07/18/2025 6:08 PM EDT [facility] Blood Capillary blood specimen / Unknown 07/18/2025 6:07 PM EDT 07/18/2025 6:08 PM EDT us Anne Franco MD LAB POINT OF CARE TEST DOCKED DEVICE UNSOLICITED RESULTS Final Result Performing Organization Address City/[facility] Co de Phone Number [facility] [address] [place] [address] * (ABNORMAL) POCT glucose meter (07/18/2025 12:36 [...] Comment 07/18/2025 12:38 PM EDT [facility] [employer] ID Laura Baez 025 12:38 PM EDT [facility] Device ID [id number] 07/18/2025 12:38 PM EDT [facility] Specimen Type POC Capillary 07/18/2025 12:38 PM EDT [facility] Blood Capillary blood specimen / Unknown 07/18/2025 12:36 PM EDT 07/18/2025 12:38 PM EDT Anne Franco MD LAB POINT OF CARE TEST DOCKED DEVICE UNSOLICITED RESULTS Final Result Performing Organization Address City/State/[facility] Co de Phone Number [facility] [address] [place] [address] * (ABNORMAL) POCT glucose meter (07/18/2025 8:39 AM EDT) [facility] Signature POCT Glucose 149(H) 74 - 99 mg/dL [...] 07/18/2025 8:41 AM EDT [facility] [employer] ID Laura Baez 025 8:41 AM EDT [facility] Device ID [id number] 07/18/2025 8:41 AM EDT [facility] Specimen Type POC Capillary 07/18/2025 8:41 AM EDT [facility] Blood Capillary blood specimen / Unknown 07/18/2025 8:39 AM EDT 07/18/2025 8:41 AM EDT us Anne Franco MD LAB POINT OF CARE TEST DOCKED DEVICE UNSOLICITED RESULTS Final Result [facility] [address] [place] [address] * (ABNORMAL) Basic metabolic panel (07/18/2025 6:03 AM EDT) Glucose, Plasma 163(H) 74 - 99 mg/dL 07/18/2025 6:45 AM EDT [facility] BUN, Plasma 11 7 - 21 mg/dL 07/18/2025 6:45 AM EDT [facility] Creatinine, Plasma 0.65 0.60 - 1.10 mg/dL 07/18/2025 6:45 AM EDT [facility] BUN/Creatinine Ratio 17 07/18/2025 6:45 AM EDT [facility] Sodium, Plasma 138 136 - 145 mmol/L 07/18/2025 6:45 AM EDT [facility] Potassium, Plasma 3.8 3.6 - 4.9 mmol/L 07/18/2025 6:45 AM EDT [facility] Chloride, Plasma 99 97 - 107 mmol/L 07/18/2025 6:45 AM EDT [facility] CO2, Plasma 29 22 - 29 mmol/L 07/18/2025 6:45 AM EDT [facility] Anion Gap 10 6 - 16 mmol/L 07/18/2025 6:45 AM EDT [facility] Total Calcium, Plasma 8.5(L) 8.9 - 10.2 mg/dL 07/18/2025 6:45 AM EDT [facility] eGFRcr 108.1 mL/min/1.7 3m*2 07/18/2025 6:45 AM EDT [facility] Comment:Reported eGFRcr in m L/min/1.73m2 is based the CKD-EPI 2020 equation that does not use a race coefficient. Blood Venous blood specimen / Unknown Venipuncture / Unknown 07/18/2025 6:03 AM EDT 07/18/2025 6:12 AM EDT us Anne Franco MD LAB BLOOD ORDERABLES Sarah bennett Result [facility] [address] [place] [address] * (ABNORMAL) CBC W/O Differential (07/18/2025 6:03 AM EDT) WBC Count 16.76(H) 3.70 - 10.30 10*3/uL LAB HEMATOLOGY METHOD 07/18/2025 6:25 AM EDT [facility] RBC Count 3.25(L) 3.90 - 5.20 10*6/uL LAB HEMATOLOGY METHOD 07/18/2025 6:25 AM EDT [facility] HGB 9.1(L) 11.2 - 15.7 g/dL LAB HEMATOLOGY METHOD 07/18/2025 6:25 AM EDT [facility] HCT 28.8(L) 34.0 - 45.0 % LAB HEMATOLOGY METHOD 07/18/2025 6:25 AM EDT [facility] Platelet Count 523(H) 155 - 369 10*3/uL LAB HEMATOLOGY METHOD 07/18/2025 6:25 AM EDT [facility] MCV 89 79 - 98 fL LAB HEMATOLOGY METHOD 07/18/2025 6:25 AM EDT [facility] MCH 28.0 26.0 - 32.0 pg LAB HEMATOLOGY METHOD 07/18/2025 6:25 AM EDT [facility] MCHC 31.6 30.7 - 35.5 g/dL LAB HEMATOLOGY METHOD 07/18/2025 6:25 AM EDT [facility] RDW 17.6(H) 11.5 - 14.5 % LAB HEMATOLOGY METHOD 07/18/2025 6:25 AM EDT [facility] MPV 10.3 8.8 - 12.5 fL LAB HEMATOLOGY METHOD 07/18/2025 6:25 AM EDT [facility] nRBC 0.0 <=0.0 per 100 WBCs LAB HEMATOLOGY METHOD 07/18/2025 6:25 AM EDT [facility] Blood Venous blood specimen / Unknown Venipuncture / Unknown 07/18/2025 6:03 AM EDT 07/18/2025 6:12 AM EDT us Anne Franco MD LAB BLOOD ORDERABLES Sarah l Result Performing Organization Address City/[facility] Co de Phone Number [facility] [address] [place] [address] * (ABNORMAL) POCT glucose meter (07/17/2025 10:33 [...] Comment 07/17/2025 10:35 PM EDT [facility] [employer] Tha, 07/17/2025 10:35 PM EDT [facility] Device ID [id number] 07/17/2025 10:35 PM EDT [facility] Specimen Type POC Capillary 07/17/2025 10:35 PM EDT [facility] Blood Capillary blood specimen / Unknown 07/17/2025 10:33 PM EDT 07/17/2025 10:35 PM EDT us Anne Franco MD LAB POINT OF CARE TEST DOCKED DEVICE UNSOLICITED RESULTS Final Result Performing Organization Address City/[facility] Co de Phone Number [facility] [address] [place] [address] * PERIPHERAL IV ([employer] L[employer]) (07/17/2025 5:14 [...] POCT glucose meter (07/17/2025 5:10 PM EDT) [facility] POCT Glucose 115(H) 74 - 99 mg/dL [...] Comment 07/17/2025 5:12 PM EDT [facility] [employer] ID Monique Jacques 5:12 PM EDT [facility] Device ID [id number] 07/17/2025 5:12 PM EDT [facility] Specimen Type POC Capillary 07/17/2025 5:12 PM EDT [facility] Blood Capillary blood specimen / Unknown 07/17/2025 5:10 PM EDT 07/17/2025 5:12 PM EDT Anne Franco MD LAB POINT OF CARE TEST DOCKED DEVICE UNSOLICITED RESULTS Final Result [facility] [address] [place] [address] * (ABNORMAL) POCT glucose meter (07/17/2025 12:06 PM EDT) [facility] POCT Glucose 211(H) 74 - 99 [...] Comment 07/17/2025 12:07 PM EDT [facility] [employer] ID Josi Ann 12:07 PM EDT [facility] Device ID [id number] 07/17/2025 12:07 PM EDT [facility] Specimen Type POC Capillary 07/17/2025 12:07 PM EDT [facility] Blood Capillary blood specimen / Unknown 07/17/2025 12:06 PM EDT 07/17/2025 12:07 PM EDT us Anne Franco MD LAB POINT OF CARE TEST DOCKED DEVICE UNSOLICITED RESULTS Final Result Performing Organization Address City/State/[facility] Co de Phone Number [facility] [address] [place] [address] * US Extremity Limited MSK or Soft [...] Detected Not Detected 07/17/2025 12:11 PM EDT [facility] Swab Both anterior nares / Unknown Non-blood Collection / Unknown 07/17/2025 10:14 AM EDT 07/17/2025 10:33 AM EDT Narrative [facility] - 07/17/2025 12:11 PM EDT [...] MICROBIOLOGY - GENERAL ORDER LUANNE Final Result [facility] [address] [place] [address] * (ABNORMAL) POCT glucose meter (07/17/2025 9:35 AM EDT) POCT Glucose 139(H) 74 - 99 mg/dL 07/17/2025 9:37 AM EDT [facility] Comment:Accuracy of a glucos e result [...] 07/17/2025 9:37 AM EDT [facility] [employer] ID Josi Ann 9:37 AM EDT [facility] Device ID [id number] 07/17/2025 9:37 AM EDT [facility] Specimen Type POC Capillary 07/17/2025 9:37 AM EDT [facility] Blood Capillary blood specimen / Unknown 07/17/2025 9:35 AM EDT 07/17/2025 9:37 AM EDT us Anne Franco MD LAB POINT OF CARE TEST DOCKED DEVICE UNSOLICITED RESULTS Final Result [facility] [address] [place] [id number] * (ABNORMAL) Basic metabolic panel (07/17/2025 5:20 AM EDT) Glucose, Plasma 140(H) 74 - 99 mg/dL 07/17/2025 5:56 AM EDT [facility] BUN, Plasma 8 7 - 21 mg/dL 07/17/2025 5:56 AM EDT [facility] Creatinine, Plasma 0.59(L) 0.60 - 1.10 mg/dL 07/17/2025 5:56 AM EDT [facility] BUN/Creatinine Ratio 14 07/17/2025 5:56 AM EDT [facility] Sodium, Plasma 139 136 - 145 mmol/L 07/17/2025 5:56 AM EDT [facility] Potassium, Plasma 3.8 3.6 - 4.9 mmol/L 07/17/2025 5:56 AM EDT [facility] Chloride, Plasma 97 97 - 107 mmol/L 07/17/2025 5:56 AM EDT [facility] CO2, Plasma 31(H) 22 - 29 mmol/L 07/17/2025 5:56 AM EDT [facility] Anion Gap 11 6 - 16 mmol/L 07/17/2025 5:56 AM EDT [facility] Total Calcium, Plasma 8.6(L) 8.9 - 10.2 mg/dL 07/17/2025 5:56 AM EDT [facility] eGFRcr 110.6 mL/min/1.7 3m*2 07/17/2025 5:56 AM EDT [facility] Comment:Reported eGFRcr in m L/min/1.73m2 is based the CKD-EPI 2020 equation that does not use a race coefficient. Blood Venous blood specimen / Unknown Venipuncture / Unknown 07/17/2025 5:20 AM EDT 07/17/2025 5:27 AM EDT us Anne Franco MD LAB BLOOD ORDERABLES Sarah l Result [facility] [address] [place] [address] * Phosphorus, Plasma (07/17/2025 5:20 AM EDT) Phosphorus, Plasma 3.0 2.5 - 4.5 mg/dL 07/17/2025 5:56 AM EDT [facility] Blood Venous blood specimen / Unknown Venipuncture / Unknown 07/17/2025 5:20 AM EDT 07/17/2025 5:27 AM EDT us Anne Franco MD LAB BLOOD ORDERABLES Sarah l Result Performing Organization Address City/[facility]/ZIP Co de Phone Number [facility] [address] [place] [address] * (ABNORMAL) Magnesium, Plasma (07/17/2025 5:20 AM EDT) Magnesium, Plasma 1.8(L) 1.9 - 2.4 mg/dL 07/17/2025 5:56 AM EDT [facility] Blood Venous blood specimen / Unknown Venipuncture / Unknown 07/17/2025 5:20 AM EDT 07/17/2025 5:27 AM EDT us Anne Franco MD LAB BLOOD ORDERABLES Sarah l Result Performing Organization Address City/[facility]/ZIP Co de Phone Number [facility] [address] [place] [address] * (ABNORMAL) CBC W/O Differential (07/17/2025 5:20 AM EDT) WBC Count 22.29(H) 3.70 - 10.30 10*3/uL LAB HEMATOLOGY METHOD 07/17/2025 5:37 AM EDT [facility] RBC Count 3.36(L) 3.90 - 5.20 10*6/uL LAB HEMATOLOGY METHOD 07/17/2025 5:37 AM EDT [facility] HGB 9.2(L) 11.2 - 15.7 g/dL LAB HEMATOLOGY METHOD 07/17/2025 5:37 AM EDT [facility] HCT 29.4(L) 34.0 - 45.0 % LAB HEMATOLOGY METHOD 07/17/2025 5:37 AM EDT [facility] Platelet Count 484(H) 155 - 369 10*3/uL LAB HEMATOLOGY METHOD 07/17/2025 5:37 AM EDT [facility] MCV 88 79 - 98 fL LAB HEMATOLOGY METHOD 07/17/2025 5:37 AM EDT [facility] MCH 27.4 26.0 - 32.0 pg LAB HEMATOLOGY METHOD 07/17/2025 5:37 AM EDT [facility] MCHC 31.3 30.7 - 35.5 g/dL LAB HEMATOLOGY METHOD 07/17/2025 5:37 AM EDT [facility] RDW 17.3(H) 11.5 - 14.5 % LAB HEMATOLOGY METHOD 07/17/2025 5:37 AM EDT [facility] MPV 10.4 8.8 - 12.5 fL LAB HEMATOLOGY METHOD 07/17/2025 5:37 AM EDT [facility] nRBC 0.1(H) <=0.0 per 100 WBCs LAB HEMATOLOGY METHOD 07/17/2025 5:37 AM EDT [facility] Blood Venous blood specimen / Unknown Venipuncture / Unknown 07/17/2025 5:20 AM EDT 07/17/2025 5:27 AM EDT us Anne Franco MD LAB BLOOD ORDERABLES Sarah bennett Result [facility] [address] [place] [address] * (ABNORMAL) POCT glucose meter (07/16/2025 8:24 PM EDT) [facility] POCT Glucose 162(H) 74 - 99 [...] Comment 07/16/2025 8:26 PM EDT [facility] [employer] Lacie Marcelo 07/16/20 8:26 PM EDT [facility] LAB Device ID [id number] 07/16/2025 8:26 PM EDT [facility] Specimen Type POC Capillary 07/16/2025 8:26 PM EDT [facility] Blood Capillary blood specimen / Unknown 07/16/2025 8:24 PM EDT 07/16/2025 8:26 PM EDT Anne Franco MD LAB POINT OF CARE TEST DOCKED DEVICE UNSOLICITED RESULTS Final Result [facility] [address] [place] [address] * (ABNORMAL) POCT glucose meter (07/16/2025 5:34 PM EDT) [facility] POCT Glucose 190(H) 74 - 99 [...] 07/16/2025 5:36 PM EDT [facility] [employer] Diego Munroe 07/16/20 5:36 PM EDT [facility] Device ID [id number] 07/16/2025 5:36 PM EDT [facility] Specimen Type POC Capillary 07/16/2025 5:36 PM EDT [facility] Blood Capillary blood specimen / Unknown 07/16/2025 5:34 PM EDT 07/16/2025 5:36 PM EDT Anne Franco MD LAB POINT OF CARE TEST DOCKED DEVICE UNSOLICITED RESULTS Final Result [facility] [address] [place] [address] * (ABNORMAL) POCT glucose meter (07/16/2025 12:06 [...] 07/16/2025 12:08 PM EDT [facility] [employer] Diego Munroe 07/16/20 12:08 PM EDT [facility] Device ID [id number] 07/16/2025 12:08 PM EDT [facility] Specimen Type POC Capillary 07/16/2025 12:08 PM EDT [facility] Blood Capillary blood specimen / Unknown 07/16/2025 12:06 PM EDT 07/16/2025 12:08 PM EDT Anne Franco MD LAB POINT OF CARE TEST DOCKED DEVICE UNSOLICITED RESULTS Final Result [facility] [address] [place] [address] * XR Chest 1 View (07/16/2025 11:25 [...] for testing. Comment 07/16/2025 8:24 AM EDT [facility] [employer] Diego Munroe 07/16/20 8:24 AM EDT HEALTHCARE LAB Device ID [id number] 07/16/2025 8:24 AM EDT [facility] Specimen Type POC Capillary 07/16/2025 8:24 AM EDT [facility] Blood Capillary blood specimen / Unknown 07/16/2025 8:22 AM EDT 07/16/2025 8:24 AM EDT Anne Franco MD LAB POINT OF CARE TEST DOCKED DEVICE UNSOLICITED RESULTS Final Result Performing Organization Address City/[facility]/ZIP Co de Phone Number [facility] [address] [place] [address] * Phosphorus (07/16/2025 5:25 AM EDT) Phosphorus, Plasma 2.8 2.5 - 4.5 mg/dL 07/16/2025 7:12 AM EDT [facility] Blood Venous blood specimen / Unknown Venipuncture / Unknown 07/16/2025 5:25 AM EDT 07/16/2025 5:33 AM EDT us Anne Franco MD LAB BLOOD ORDERABLES Sarah l Result [facility] [address] [place] [address] * (ABNORMAL) Magnesium (07/16/2025 5:25 AM EDT) Magnesium, Plasma 1.8(L) 1.9 - 2.4 mg/dL 07/16/2025 7:12 AM EDT [facility] Blood Venous blood specimen / Unknown Venipuncture / Unknown 07/16/2025 5:25 AM EDT 07/16/2025 5:33 AM EDT us Anne Franco MD LAB BLOOD ORDERABLES Sarah bennett Result [facility] [address] [place] [address] * (ABNORMAL) Basic metabolic panel (07/16/2025 5:25 AM EDT) Glucose, Plasma 149(H) 74 - 99 mg/dL 07/16/2025 6:01 AM EDT [facility] BUN, Plasma 9 7 - 21 mg/dL 07/16/2025 6:01 AM EDT [facility] Creatinine, Plasma 0.48(L) 0.60 - 1.10 mg/dL 07/16/2025 6:01 AM EDT [facility] BUN/Creatinine Ratio 19 07/16/2025 6:01 AM EDT [facility] Sodium, Plasma 140 136 - 145 mmol/L 07/16/2025 6:01 AM EDT [facility] Potassium, Plasma 3.4(L) 3.6 - 4.9 mmol/L 07/16/2025 6:01 AM EDT [facility] Chloride, Plasma 99 97 - 107 mmol/L 07/16/2025 6:01 AM EDT [facility] CO2, Plasma 31(H) 22 - 29 mmol/L 07/16/2025 6:01 AM EDT [facility] Anion Gap 10 6 - 16 mmol/L 07/16/2025 6:01 AM EDT [facility] Total Calcium, Plasma 8.6(L) 8.9 - 10.2 mg/dL 07/16/2025 6:01 AM EDT [facility] eGFRcr 116.3 mL/min/1.7 3m*2 07/16/2025 6:01 AM EDT [facility] Comment:Reported eGFRcr in m L/min/1.73m2 is based the CKD-EPI 2020 equation that does not use a race coefficient. Blood Venous blood specimen / Unknown Venipuncture / Unknown 07/16/2025 5:25 AM EDT 07/16/2025 5:33 AM EDT us Anne Franco MD LAB BLOOD ORDERABLES Sarah bennett Result [facility] [address] [place] [address] * (ABNORMAL) CBC W/O Differential (07/16/2025 5:25 AM EDT) WBC Count 22.22(H) 3.70 - 10.30 10*3/uL LAB HEMATOLOGY METHOD 07/16/2025 5:41 AM EDT [facility] RBC Count 3.30(L) 3.90 - 5.20 10*6/uL LAB HEMATOLOGY METHOD 07/16/2025 5:41 AM EDT [facility] HGB 8.9(L) 11.2 - 15.7 g/dL LAB HEMATOLOGY METHOD 07/16/2025 5:41 AM EDT [facility] HCT 28.9(L) 34.0 - 45.0 % LAB HEMATOLOGY METHOD 07/16/2025 5:41 AM EDT [facility] Platelet Count 376(H) 155 - 369 10*3/uL LAB HEMATOLOGY METHOD 07/16/2025 5:41 AM EDT [facility] MCV 88 79 - 98 fL LAB HEMATOLOGY METHOD 07/16/2025 5:41 AM EDT [facility] MCH 27.0 26.0 - 32.0 pg LAB HEMATOLOGY METHOD 07/16/2025 5:41 AM EDT [facility] MCHC 30.8 30.7 - 35.5 g/dL LAB HEMATOLOGY METHOD 07/16/2025 5:41 AM EDT [facility] RDW 17.2(H) 11.5 - 14.5 % LAB HEMATOLOGY METHOD 07/16/2025 5:41 AM EDT [facility] MPV 10.3 8.8 - 12.5 fL LAB HEMATOLOGY METHOD 07/16/2025 5:41 AM EDT [facility] nRBC 0.1(H) <=0.0 per 100 WBCs LAB HEMATOLOGY METHOD 07/16/2025 5:41 AM EDT [facility] Blood Venous blood specimen / Unknown Venipuncture / Unknown 07/16/2025 5:25 AM EDT 07/16/2025 5:33 AM EDT us Anne Franco MD LAB BLOOD ORDERABLES Sarah l Result [facility] [address] [place] [address] * (ABNORMAL) POCT glucose meter (07/15/2025 9:38 [...] Comment 07/15/2025 9:39 PM EDT [facility] [employer] Yessenia Ramierz 9:39 PM EDT [facility] Device ID [id number] 07/15/2025 9:39 PM EDT [facility] Specimen Type POC Capillary 07/15/2025 9:39 PM EDT [facility] Blood Capillary blood specimen / Unknown 07/15/2025 9:38 PM EDT 07/15/2025 9:39 PM EDT us Anne Franco MD LAB POINT OF CARE TEST DOCKED DEVICE UNSOLICITED RESULTS Final Result [facility] [address] [place] [address] * (ABNORMAL) POCT glucose meter (07/15/2025 6:03 PM EDT) [facility] POCT Glucose 234(H) 74 - 99 [...] 07/15/2025 6:04 PM EDT [facility] [employer] Venessa Amin 07/15/2025 6:04 PM EDT [facility] Device ID [id number] 07/15/2025 6:04 PM EDT [facility] Specimen Type POC Capillary 07/15/2025 6:04 PM EDT [facility] Blood Capillary blood specimen / Unknown 07/15/2025 6:03 PM EDT 07/15/2025 6:04 PM EDT Anne Franco MD LAB POINT OF CARE TEST DOCKED DEVICE UNSOLICITED RESULTS Final Result [facility] [address] [place] [address] * (ABNORMAL) POCT glucose meter (07/15/2025 12:38 PM EDT) [facility] POCT Glucose 153(H) 74 - 99 [...] 07/15/2025 12:40 PM EDT [facility] [employer] Brennan Venessa 07/15/2025 12:40 PM EDT [facility] Device ID [id number] 07/15/2025 12:40 PM EDT [facility] Specimen Type POC Capillary 07/15/2025 12:40 PM EDT [facility] Blood Capillary blood specimen / Unknown 07/15/2025 12:38 PM EDT 07/15/2025 12:40 PM EDT Anne Franco MD LAB POINT OF CARE TEST DOCKED DEVICE UNSOLICITED RESULTS Final Result Performing Organization Address City/[facility] Co de Phone Number [facility] [address] [place] [address] * (ABNORMAL) POCT glucose meter (07/15/2025 8:38 AM EDT) [facility] POCT Glucose 132(H) 74 - 99 [...] Comment 07/15/2025 8:39 AM EDT [facility] [employer] Venessa Amin 07/15/2025 8:39 AM EDT [facility] LAB Device ID [id number] 07/15/2025 8:39 AM EDT [facility] Specimen Type POC Capillary 07/15/2025 8:39 AM EDT [facility] Blood Capillary blood specimen / Unknown 07/15/2025 8:38 AM EDT 07/15/2025 8:39 AM EDT us Anne Franco MD LAB POINT OF CARE TEST DOCKED DEVICE UNSOLICITED RESULTS Final Result Performing Organization Address [facility] de Phone Number [facility] [address] [place] [address] * (ABNORMAL) Phosphorus (07/15/2025 4:50 AM EDT) Phosphorus, Plasma 2.3(L) 2.5 - 4.5 mg/dL 07/15/2025 7:33 AM EDT [facility] Blood Venous blood specimen / Unknown Venipuncture / Unknown 07/15/2025 4:50 AM EDT 07/15/2025 4:59 AM EDT Anne Franco MD LAB BLOOD ORDERABLES Sarah l Result Performing Organization Address City/[facility]/ZIP Co de Phone Number [facility] [address] [place] [address] * Magnesium (07/15/2025 4:50 AM EDT) Magnesium, Plasma 1.9 1.9 - 2.4 mg/dL 07/15/2025 7:33 AM EDT [facility] Blood Venous blood specimen / Unknown Venipuncture / Unknown 07/15/2025 4:50 AM EDT 07/15/2025 4:59 AM EDT Anne Franco MD LAB BLOOD ORDERABLES Sarah l Result Performing Organization Address City/[facility]/ZIP Co de Phone Number [facility] [address] [place] [address] * (ABNORMAL) Basic metabolic panel (07/15/2025 4:50 AM EDT) Glucose, Plasma 150(H) 74 - 99 mg/dL 07/15/2025 5:31 AM EDT [facility] BUN, Plasma 11 7 - 21 mg/dL 07/15/2025 5:31 AM EDT [facility] Creatinine, Plasma 0.54(L) 0.60 - 1.10 mg/dL 07/15/2025 5:31 AM EDT [facility] BUN/Creatinine Ratio 20 07/15/2025 5:31 AM EDT [facility] Sodium, Plasma 136 136 - 145 mmol/L 07/15/2025 5:31 AM EDT [facility] Potassium, Plasma 4.1 3.6 - 4.9 mmol/L 07/15/2025 5:31 AM EDT [facility] Chloride, Plasma 95(L) 97 - 107 mmol/L 07/15/2025 5:31 AM EDT [facility] CO2, Plasma 32(H) 22 - 29 mmol/L 07/15/2025 5:31 AM EDT [facility] Anion Gap 9 6 - 16 mmol/L 07/15/2025 5:31 AM EDT [facility] Total Calcium, Plasma 8.8(L) 8.9 - 10.2 mg/dL 07/15/2025 5:31 AM EDT [facility] eGFRcr 113.0 mL/min/1.7 3m*2 07/15/2025 5:31 AM EDT [facility] Comment:Reported eGFRcr in m L/min/1.73m2 is based the CKD-EPI 2020 equation that does not use a race coefficient. Blood Venous blood specimen / Unknown Venipuncture / Unknown 07/15/2025 4:50 AM EDT 07/15/2025 4:59 AM EDT Anne Franco MD LAB BLOOD ORDERABLES Sarah bennett Result [facility] [address] [place] [address] * (ABNORMAL) POCT glucose meter (07/14/2025 7:57 [...] Comment 07/14/2025 7:58 PM EDT [facility] [employer] Bernard Chirinos 07/14/20 7:58 PM EDT [facility] LAB Device ID [id number] 07/14/2025 7:58 PM EDT [facility] Specimen Type POC Capillary 07/14/2025 7:58 PM EDT [facility] Blood Capillary blood specimen / Unknown 07/14/2025 7:57 PM EDT 07/14/2025 7:58 PM EDT us Anne Franco MD LAB POINT OF CARE TEST DOCKED DEVICE UNSOLICITED RESULTS Final Result Performing Organization Address [facility] de Phone Number [facility] [address] [place] [address] * (ABNORMAL) POCT glucose meter (07/14/2025 4:56 PM EDT) Pathologist [facility] POCT Glucose 154(H) 74 - 99 [...] for testing. Comment 07/14/2025 4:58 PM EDT [facility] [employer] Riana Higgins 07/14/2025 4:58 PM EDT [facility] Device ID [id number] 07/14/2025 4:58 PM EDT [facility] Specimen Type POC Capillary 07/14/2025 4:58 PM EDT [facility] Blood Capillary blood specimen / Unknown 07/14/2025 4:56 PM EDT 07/14/2025 4:58 PM EDT us Anne Franco MD LAB POINT OF CARE TEST DOCKED DEVICE UNSOLICITED RESULTS Final Result Performing Organization Address City/[facility] Co de Phone Number [facility] [address] [place] [address] * (ABNORMAL) POCT glucose meter (07/14/2025 12:38 PM EDT) Pathologist [facility] POCT Glucose 143(H) 74 - 99 [...] Comment 07/14/2025 12:39 PM EDT [facility] [employer] ID Laura Baez 025 12:39 PM EDT [facility] LAB Device ID [id number] 07/14/2025 12:39 PM EDT [facility] Specimen Type POC Capillary 07/14/2025 12:39 PM EDT [facility] Blood Capillary blood specimen / Unknown 07/14/2025 12:38 PM EDT 07/14/2025 12:39 PM EDT us Anne Franco MD LAB POINT OF CARE TEST DOCKED DEVICE UNSOLICITED RESULTS Final Result [facility] [address] [place] [address] * (ABNORMAL) Basic metabolic panel (07/14/2025 9:36 AM EDT) Glucose, Plasma 191(H) 74 - 99 mg/dL 07/14/2025 10:15 AM EDT [facility] BUN, Plasma 16 7 - 21 mg/dL 07/14/2025 10:15 AM EDT [facility] Creatinine, Plasma 0.61 0.60 - 1.10 mg/dL 07/14/2025 10:15 AM EDT [facility] BUN/Creatinine Ratio 26 07/14/2025 10:15 AM EDT [facility] Sodium, Plasma 138 136 - 145 mmol/L 07/14/2025 10:15 AM EDT [facility] Potassium, Plasma 3.2(L) 3.6 - 4.9 mmol/L 07/14/2025 10:15 AM EDT [facility] Chloride, Plasma 96(L) 97 - 107 mmol/L 07/14/2025 10:15 AM EDT [facility] CO2, Plasma 33(H) 22 - 29 mmol/L 07/14/2025 10:15 AM EDT [facility] Anion Gap 9 6 - 16 mmol/L 07/14/2025 10:15 AM EDT [facility] Total Calcium, Plasma 8.7(L) 8.9 - 10.2 mg/dL 07/14/2025 10:15 AM EDT [facility] eGFRcr 109.8 mL/min/1.7 3m*2 07/14/2025 10:15 AM EDT [facility] Comment:Reported eGFRcr in m L/min/1.73m2 is based the CKD-EPI 2020 equation that does not use a race coefficient. Blood Venous blood specimen / Unknown Venipuncture / Unknown 07/14/2025 9:36 AM EDT 07/14/2025 9:44 AM EDT us Anne Franco MD LAB BLOOD ORDERABLES Sarah l Result Performing Organization Address City/[facility]/ZIP Co de Phone Number [facility] [address] [place] [address] * (ABNORMAL) Magnesium, Plasma (07/14/2025 9:36 AM EDT) Magnesium, Plasma 1.7(L) 1.9 - 2.4 mg/dL 07/14/2025 10:15 AM EDT [facility] Blood Venous blood specimen / Unknown Venipuncture / Unknown 07/14/2025 9:36 AM EDT 07/14/2025 9:44 AM EDT us Anne Franco MD LAB BLOOD ORDERABLES Sarah l Result Performing Organization Address City/[facility]/ZIP Co de Phone Number [facility] [address] [place] [address] * (ABNORMAL) Phosphorus, Plasma (07/14/2025 9:36 AM EDT) Phosphorus, Plasma 2.2(L) 2.5 - 4.5 mg/dL 07/14/2025 10:15 AM EDT [facility] Blood Venous blood specimen / Unknown Venipuncture / Unknown 07/14/2025 9:36 AM EDT 07/14/2025 9:44 AM EDT us Anne Franco MD LAB BLOOD ORDERABLES Sarah benentt Result [facility] [address] [place] [address] * (ABNORMAL) CBC W/O Differential (07/14/2025 9:36 AM EDT) WBC Count 21.20(H) 3.70 - 10.30 10*3/uL LAB HEMATOLOGY METHOD 07/14/2025 9:52 AM EDT [facility] RBC Count 3.37(L) 3.90 - 5.20 10*6/uL LAB HEMATOLOGY METHOD 07/14/2025 9:52 AM EDT [facility] HGB 9.2(L) 11.2 - 15.7 g/dL LAB HEMATOLOGY METHOD 07/14/2025 9:52 AM EDT [facility] HCT 29.4(L) 34.0 - 45.0 % LAB HEMATOLOGY METHOD 07/14/2025 9:52 AM EDT [facility] Platelet Count 314 155 - 369 10*3/uL LAB HEMATOLOGY METHOD 07/14/2025 9:52 AM EDT [facility] MCV 87 79 - 98 fL LAB HEMATOLOGY METHOD 07/14/2025 9:52 AM EDT [facility] MCH 27.3 26.0 - 32.0 pg LAB HEMATOLOGY METHOD 07/14/2025 9:52 AM EDT [facility] MCHC 31.3 30.7 - 35.5 g/dL LAB HEMATOLOGY METHOD 07/14/2025 9:52 AM EDT [facility] RDW 17.2(H) 11.5 - 14.5 % LAB HEMATOLOGY METHOD 07/14/2025 9:52 AM EDT [facility] MPV 10.2 8.8 - 12.5 fL LAB HEMATOLOGY METHOD 07/14/2025 9:52 AM EDT [facility] nRBC 0.1(H) <=0.0 per 100 WBCs LAB HEMATOLOGY METHOD 07/14/2025 9:52 AM EDT [facility] Blood Venous blood specimen / Unknown Venipuncture / Unknown 07/14/2025 9:36 AM EDT 07/14/2025 9:44 AM EDT us Anne Franco MD LAB BLOOD ORDERABLES Sarah l Result Performing Organization Address City/[facility] Co de Phone Number [facility] [address] [place] [address] * (ABNORMAL) POCT glucose meter (07/14/2025 8:39 [...] for testing. Comment 07/14/2025 8:41 AM EDT [facility] [employer] ID Laura Baez 025 8:41 AM EDT [facility] Device ID [id number] 07/14/2025 8:41 AM EDT [facility] Specimen Type POC Capillary 07/14/2025 8:41 AM EDT [facility] Blood Capillary blood specimen / Unknown 07/14/2025 8:39 AM EDT 07/14/2025 8:41 AM EDT us Anne Franco MD LAB POINT OF CARE TEST DOCKED DEVICE UNSOLICITED RESULTS Final Result Performing Organization Address City/[facility] Co de Phone Number [facility] [address] [place] [address] * (ABNORMAL) POCT glucose meter (07/14/2025 6:18 [...] Comment 07/14/2025 6:20 AM EDT [facility] [employer] Rita Alejandro 6:20 AM EDT [facility] Device ID [id number] 07/14/2025 6:20 AM EDT [facility] Specimen Type POC Capillary 07/14/2025 6:20 AM EDT [facility] Blood Capillary blood specimen / Unknown 07/14/2025 6:18 AM EDT 07/14/2025 6:20 AM EDT us Anne Franco MD LAB POINT OF CARE TEST DOCKED DEVICE UNSOLICITED RESULTS Final Result Performing Organization Address City/[facility] Co de Phone Number [facility] [address] [place] [address] * (ABNORMAL) POCT glucose meter (07/13/2025 9:18 [...] Comment 07/13/2025 9:19 PM EDT [facility] [employer] ID Yenny Tong 025 9:19 PM EDT [facility] LAB Device ID [id number] 07/13/2025 9:19 PM EDT [facility] Specimen Type POC Capillary 07/13/2025 9:19 PM EDT [facility] Blood Capillary blood specimen / Unknown 07/13/2025 9:18 PM EDT 07/13/2025 9:19 PM EDT us Anne Franco MD LAB POINT OF CARE TEST DOCKED DEVICE UNSOLICITED RESULTS Final Result Performing Organization Address City/[facility]/ZIP Co de Phone Number [facility] [address] [place] [address] * (ABNORMAL) POCT glucose meter (07/13/2025 6:01 [...] Comment 07/13/2025 6:02 PM EDT [facility] [employer] ID Laura Baez 025 6:02 PM EDT [facility] Device ID [id number] 07/13/2025 6:02 PM EDT [facility] Specimen Type POC Capillary 07/13/2025 6:02 PM EDT [facility] Blood Capillary blood specimen / Unknown 07/13/2025 6:01 PM EDT 07/13/2025 6:02 PM EDT Anne Franco MD LAB POINT OF CARE TEST DOCKED DEVICE UNSOLICITED RESULTS Final Result Performing Organization Address City/State/[facility] Co de Phone Number [facility] [address] [place] [address] * (ABNORMAL) POCT glucose meter (07/13/2025 12:12 PM EDT) Pathologist [facility] POCT [...] 07/13/2025 12:14 PM EDT [facility] [employer] ID Laura Baez 025 12:14 PM EDT [facility] Device ID [id number] 07/13/2025 12:14 PM EDT [facility] Specimen Type POC Capillary 07/13/2025 12:14 PM EDT [facility] Blood Capillary blood specimen / Unknown 07/13/2025 12:12 PM EDT 07/13/2025 12:14 PM EDT Anne Franco MD LAB POINT OF CARE TEST DOCKED DEVICE UNSOLICITED RESULTS Final Result Performing Organization Address City/[facility]/ZIP Co de Phone Number [facility] [address] [place] [address] * (ABNORMAL) Phosphorus (07/13/2025 10:21 AM EDT) Phosphorus, Plasma 2.2(L) 2.5 - 4.5 mg/dL 07/13/2025 11:23 AM EDT [facility] Blood Venous blood specimen / Unknown Venipuncture / Unknown 07/13/2025 10:21 AM EDT 07/13/2025 10:31 AM EDT us Luanne Crawford MD LAB BLOOD ORDERABLES Final Result Performing Organization Address City/[facility]/[place] [address] * (ABNORMAL) Magnesium, Plasma (07/13/2025 10:21 AM EDT) Magnesium, Plasma 1.7(L) 1.9 - 2.4 mg/dL 07/13/2025 11:23 AM EDT [facility] Blood Venous blood specimen / Unknown Venipuncture / Unknown 07/13/2025 10:21 AM EDT 07/13/2025 10:31 AM EDT Luanne Crawford MD LAB BLOOD ORDERABLES Final Result Performing Organization Address City/[facility]/ZIP Co de Phone Number [facility] [address] [place] [address] * (ABNORMAL) Basic Metabolic Panel, Plasma (07/13/2025 10:21 AM EDT) Glucose, Plasma 135(H) 74 - 99 mg/dL 07/13/2025 11:23 AM EDT [facility] BUN, Plasma 22(H) 7 - 21 mg/dL 07/13/2025 11:23 AM EDT [facility] Creatinine, Plasma 0.62 0.60 - 1.10 mg/dL 07/13/2025 11:23 AM EDT [facility] BUN/Creatinine Ratio 35 07/13/2025 11:23 AM EDT [facility] Sodium, Plasma 138 136 - 145 mmol/L 07/13/2025 11:23 AM EDT [facility] Potassium, Plasma 3.7 3.6 - 4.9 mmol/L 07/13/2025 11:23 AM EDT [facility] Chloride, Plasma 95(L) 97 - 107 mmol/L 07/13/2025 11:23 AM EDT [facility] CO2, Plasma 30(H) 22 - 29 mmol/L 07/13/2025 11:23 AM EDT [facility] Anion Gap 13 6 - 16 mmol/L 07/13/2025 11:23 AM EDT [facility] Total Calcium, Plasma 9.0 8.9 - 10.2 mg/dL 07/13/2025 11:23 AM EDT [facility] eGFRcr 109.3 mL/min/1.7 3m*2 07/13/2025 11:23 AM EDT [facility] Comment:Reported eGFRcr in m L/min/1.73m2 is based the CKD-EPI 2020 equation that does not use a race coefficient. Blood Venous blood specimen / Unknown Venipuncture / Unknown 07/13/2025 10:21 AM EDT 07/13/2025 10:31 AM EDT us Luanne Crawford MD LAB BLOOD ORDERABLES Final Result [facility] [address] [place] [address] * (ABNORMAL) CBC W/O Differential (07/13/2025 10:21 AM EDT) WBC Count 19.56(H) 3.70 - 10.30 10*3/uL LAB HEMATOLOGY METHOD 07/13/2025 10:59 AM EDT [facility] RBC Count 3.67(L) 3.90 - 5.20 10*6/uL LAB HEMATOLOGY METHOD 07/13/2025 10:59 AM EDT [facility] HGB 10.2(L) 11.2 - 15.7 g/dL LAB HEMATOLOGY METHOD 07/13/2025 10:59 AM EDT [facility] HCT 32.3(L) 34.0 - 45.0 % LAB HEMATOLOGY METHOD 07/13/2025 10:59 AM EDT [facility] Platelet Count 296 155 - 369 10*3/uL LAB HEMATOLOGY METHOD 07/13/2025 10:59 AM EDT [facility] MCV 88 79 - 98 fL LAB HEMATOLOGY METHOD 07/13/2025 10:59 AM EDT [facility] MCH 27.8 26.0 - 32.0 pg LAB HEMATOLOGY METHOD 07/13/2025 10:59 AM EDT [facility] MCHC 31.6 30.7 - 35.5 g/dL LAB HEMATOLOGY METHOD 07/13/2025 10:59 AM EDT [facility] RDW 17.6(H) 11.5 - 14.5 % LAB HEMATOLOGY METHOD 07/13/2025 10:59 AM EDT [facility] MPV 10.3 8.8 - 12.5 fL LAB HEMATOLOGY METHOD 07/13/2025 10:59 AM EDT [facility] nRBC 0.0 <=0.0 per 100 WBCs LAB HEMATOLOGY METHOD 07/13/2025 10:59 AM EDT [facility] Blood Venous blood specimen / Unknown Venipuncture / Unknown 07/13/2025 10:21 AM EDT 07/13/2025 10:31 AM EDT us Luanne Crawford MD LAB BLOOD ORDERABLES Final Result [facility] [address] [place] [address] * (ABNORMAL) POCT glucose meter (07/13/2025 8:50 [...] 07/13/2025 8:53 AM EDT [facility] [employer] ID Laura Baez 025 8:53 AM EDT [facility] Device ID [id number] 07/13/2025 8:53 AM EDT [facility] Specimen Type POC Capillary 07/13/2025 8:53 AM EDT [facility] Blood Capillary blood specimen / Unknown 07/13/2025 8:50 AM EDT 07/13/2025 8:53 AM EDT Anne Franco MD LAB POINT OF CARE TEST DOCKED DEVICE UNSOLICITED RESULTS Final Result [facility] [address] [place] [address] * (ABNORMAL) POCT glucose meter (07/13/2025 6:11 AM EDT) [facility] POCT Glucose 111(H) 74 - 99 [...] 07/13/2025 6:13 AM EDT [facility] [employer] ID Rita Alejandro 6:13 AM EDT [facility] Device ID [id number] 07/13/2025 6:13 AM EDT [facility] Specimen Type POC Capillary 07/13/2025 6:13 AM EDT [facility] Blood Capillary blood specimen / Unknown 07/13/2025 6:11 AM EDT 07/13/2025 6:13 AM EDT us Anne Franco MD LAB POINT OF CARE TEST DOCKED DEVICE UNSOLICITED RESULTS Final Result Performing Organization Address [facility] de Phone Number HEALTHCARE LAB [address] [place] [address] * (ABNORMAL) POCT glucose meter (07/12/2025 9:28 PM EDT) Pathologist [facility] POCT Glucose 107(H) 74 - 99 [...] for testing. Comment 07/12/2025 9:30 PM EDT [facility] [employer] Yenny Tong 025 9:30 PM EDT [facility] Device ID [id number] 07/12/2025 9:30 PM EDT [facility] Specimen Type POC Capillary 07/12/2025 9:30 PM EDT [facility] Blood Capillary blood specimen / Unknown 07/12/2025 9:28 PM EDT 07/12/2025 9:30 PM EDT us Anne Franco MD LAB POINT OF CARE TEST DOCKED DEVICE UNSOLICITED RESULTS Final Result Performing Organization Address [facility] Co de Phone Number [facility] [address] [place] [address] * (ABNORMAL) POCT glucose meter (07/12/2025 6:04 PM EDT) Pathologist [facility] POCT Glucose 129(H) 74 - 99 [...] Comment 07/12/2025 6:06 PM EDT [facility] [employer] Jeana Bear 07/12/2025 6:06 PM EDT [facility]ARE [facility] Device ID [id number] 07/12/2025 6:06 PM EDT [facility] Specimen Type POC Capillary 07/12/2025 6:06 PM EDT [facility] Blood Capillary blood specimen / Unknown 07/12/2025 6:04 PM EDT 07/12/2025 6:06 PM EDT Anne Franco MD LAB POINT OF CARE TEST DOCKED DEVICE UNSOLICITED RESULTS Final Result Performing Organization Address City/State/[facility] Co de Phone Number [facility]ALTHCARE [facility] [address] [place] [address] * PERIPHERAL IV ([employer] L[employer]) (07/12/2025 3:51 [...] Comment 07/12/2025 11:56 AM EDT [facility] [employer] Jeana Bear 07/12/2025 11:56 AM EDT [facility] Device ID [id number] 07/12/2025 11:56 AM EDT [facility] Specimen Type POC Capillary 07/12/2025 11:56 AM EDT [facility] Blood Capillary blood specimen / Unknown 07/12/2025 11:55 AM EDT 07/12/2025 11:56 AM EDT Dorcas Hennessy MD LAB POINT OF CARE TE ST DOCKED DEVICE UNSOLICITED RESULTS Final Result Performing Organization Address City/State/[facility] de Phone Number HEALTHCARE LAB [address] [place] [address] * XR Chest 1 View (07/12/2025 11:11 [...] for testing. Comment 07/12/2025 8:42 AM EDT [facility] [employer] Jeana Bear 07/12/2025 8:42 AM EDT [facility] Device ID [id number] 07/12/2025 8:42 AM EDT [facility] Specimen Type POC Capillary 07/12/2025 8:42 AM EDT [facility] Blood Capillary blood specimen / Unknown 07/12/2025 8:41 AM EDT 07/12/2025 8:42 AM EDT us Dorcas Hennessy MD LAB POINT OF CARE TE ST DOCKED DEVICE UNSOLICITED RESULTS Final Result [facility] [address] [place] [address] * Phosphorus (07/12/2025 12:25 AM EDT) Phosphorus, Plasma 2.9 2.5 - 4.5 mg/dL 07/12/2025 1:22 AM EDT [facility] Blood Venous blood specimen / Unknown Venipuncture / Unknown 07/12/2025 12:25 AM EDT 07/12/2025 12:52 AM EDT us Luanne Crawford MD LAB BLOOD ORDERABLES Final Result Performing Organization Address City/[facility]/ZIP Co de Phone Number [facility] [address] [place] [address] * Magnesium, Plasma (07/12/2025 12:25 AM EDT) Magnesium, Plasma 2.0 1.9 - 2.4 mg/dL 07/12/2025 1:22 AM EDT [facility] Blood Venous blood specimen / Unknown Venipuncture / Unknown 07/12/2025 12:25 AM EDT 07/12/2025 12:52 AM EDT us Luanne Crawford MD LAB BLOOD ORDERABLES Final Result Performing Organization Address [facility] Co de Phone Number [facility] [address] [place] [address] * (ABNORMAL) Basic Metabolic Panel, Plasma (07/12/2025 12:25 AM EDT) Glucose, Plasma 92 74 - 99 mg/dL 07/12/2025 1:22 AM EDT [facility] BUN, Plasma 18 7 - 21 mg/dL 07/12/2025 1:22 AM EDT [facility] Creatinine, Plasma 0.84 0.60 - 1.10 mg/dL 07/12/2025 1:22 AM EDT [facility] BUN/Creatinine Ratio 21 07/12/2025 1:22 AM EDT [facility] Sodium, Plasma 142 136 - 145 mmol/L 07/12/2025 1:22 AM EDT [facility] Potassium, Plasma 3.6 3.6 - 4.9 mmol/L 07/12/2025 1:22 AM EDT [facility] Chloride, Plasma 103 97 - 107 mmol/L 07/12/2025 1:22 AM EDT [facility] CO2, Plasma 31(H) 22 - 29 mmol/L 07/12/2025 1:22 AM EDT [facility] Anion Gap 8 6 - 16 mmol/L 07/12/2025 1:22 AM EDT [facility] Total Calcium, Plasma 8.8(L) 8.9 - 10.2 mg/dL 07/12/2025 1:22 AM EDT [facility] eGFRcr 85.3 mL/min/1.7 3m*2 07/12/2025 1:22 AM EDT [facility] Comment:Reported eGFRcr in m L/min/1.73m2 is based the CKD-EPI 2020 equation that does not use a race coefficient. Blood Venous blood specimen / Unknown Venipuncture / Unknown 07/12/2025 12:25 AM EDT 07/12/2025 12:52 AM EDT us Luanne Crawford MD LAB BLOOD ORDERABLES Final Result [facility] [address] [place] [address] * (ABNORMAL) CBC W/O Differential (07/12/2025 12:25 AM EDT) WBC Count 15.81(H) 3.70 - 10.30 10*3/uL LAB HEMATOLOGY METHOD 07/12/2025 1:05 AM EDT [facility] RBC Count 3.39(L) 3.90 - 5.20 10*6/uL LAB HEMATOLOGY METHOD 07/12/2025 1:05 AM EDT [facility] HGB 9.3(L) 11.2 - 15.7 g/dL LAB HEMATOLOGY METHOD 07/12/2025 1:05 AM EDT [facility] HCT 29.8(L) 34.0 - 45.0 % LAB HEMATOLOGY METHOD 07/12/2025 1:05 AM EDT [facility] Platelet Count 276 155 - 369 10*3/uL LAB HEMATOLOGY METHOD 07/12/2025 1:05 AM EDT [facility] MCV 88 79 - 98 fL LAB HEMATOLOGY METHOD 07/12/2025 1:05 AM EDT [facility] MCH 27.4 26.0 - 32.0 pg LAB HEMATOLOGY METHOD 07/12/2025 1:05 AM EDT [facility] MCHC 31.2 30.7 - 35.5 g/dL LAB HEMATOLOGY METHOD 07/12/2025 1:05 AM EDT [facility] RDW 18.0(H) 11.5 - 14.5 % LAB HEMATOLOGY METHOD 07/12/2025 1:05 AM EDT [facility] MPV 10.5 8.8 - 12.5 fL LAB HEMATOLOGY METHOD 07/12/2025 1:05 AM EDT [facility] nRBC 0.0 <=0.0 per 100 WBCs LAB HEMATOLOGY METHOD 07/12/2025 1:05 AM EDT [facility] Blood Venous blood specimen / Unknown Venipuncture / Unknown 07/12/2025 12:25 AM EDT 07/12/2025 12:55 AM EDT Luanne Crawford MD LAB BLOOD ORDERABLES Final Result Performing Organization Address City/[facility]/ZIP Co de Phone Number [facility] [address] [place] [address] * (ABNORMAL) POCT Glucose (if patient NPO, on TPN or continuous nutrition) (07/11/2025 8:45 PM EDT) [facility] POCT Glucose 119(A) 74 - 99 mg/dL [facility] Test Strip Lot Number \[id number]\ [facility] Test Strip Expiration 09/24/2026 [facility] Blood Venous blood specimen / Unknown 07/11/2025 8:45 PM EDT us Dorcas Hennessy MD POINT OF CARE TEST ENTER/EDIT OR DERABLES Final Result [facility] [address] [place] [address] * (ABNORMAL) POCT Glucose - Before Meals and Bedtime (07/11/2025 8:43 PM EDT) [facility] POCT Glucose 119(A) 74 - 99 mg/dL [facility] Test Strip Lot Number [id number] [facility] Test Strip Expiration 09/24/2026 [facility] Blood Venous blood specimen / Unknown 07/11/2025 8:43 PM EDT us Dorcas Hennessy MD POINT OF CARE TEST ENTER/EDIT OR DERABLES Final Result Performing Organization Address [facility] Co de Phone Number [facility]ARE [facility] [address] [place] [address] * (ABNORMAL) POCT glucose meter (07/11/2025 8:42 [...] Comment 07/11/2025 8:43 PM EDT [facility] [employer] Jf Cruz 07/11/2025 8:43 PM EDT [facility]ARE LAB Device ID [id number] 07/11/2025 8:43 PM EDT [facility] Specimen Type POC Capillary 07/11/2025 8:43 PM EDT [facility] Blood Capillary blood specimen / Unknown 07/11/2025 8:42 PM EDT 07/11/2025 8:43 PM EDT us Dorcas Hennessy MD LAB POINT OF CARE TE ST DOCKED DEVICE UNSOLICITED RESULTS Final Result Performing Organization Address City/[facility] Co de Phone Number [facility] [address] [place] [address] * (ABNORMAL) POCT glucose meter (07/11/2025 5:38 [...] 07/11/2025 5:40 PM EDT [facility] [employer] Ayana Aamto 07/11/2025 5:40 PM EDT [facility] Device ID [id number] 07/11/2025 5:40 PM EDT [facility] Specimen Type POC Capillary 07/11/2025 5:40 PM EDT [facility] Blood Capillary blood specimen / Unknown 07/11/2025 5:38 PM EDT 07/11/2025 5:40 PM EDT us Dorcas Hennessy MD LAB POINT OF CARE TE ST DOCKED DEVICE UNSOLICITED RESULTS Final Result Performing Organization Address [facility] de Phone Number [facility]ARE [facility] [address] [place] [address] * (ABNORMAL) POCT glucose meter (07/11/2025 3:36 PM EDT) [facility] POCT Glucose 144(H) 74 - 99 [...] 07/11/2025 3:38 PM EDT [facility] [employer] Radha Frias 07/11/20 3:38 PM EDT [facility] Device ID [id number] 07/11/2025 3:38 PM EDT [facility] Specimen Type POC Venous 07/11/2025 3:38 PM EDT [facility] Blood Venous blood specimen / Unknown 07/11/2025 3:36 PM EDT 07/11/2025 3:38 PM EDT us Dorcas Hennessy MD LAB POINT OF CARE TE ST DOCKED DEVICE UNSOLICITED RESULTS Final Result Performing Organization Address City/[facility] Co de Phone Number [facility] [address] [place] [address] * (ABNORMAL) POCT glucose meter (07/11/2025 1:52 PM EDT) [facility] POCT Glucose 140(H) 74 - 99 [...] 07/11/2025 1:54 PM EDT [facility] [employer] Ayana Amato 07/11/2025 1:54 PM EDT [facility] Device ID [id number] 07/11/2025 1:54 PM EDT [facility]ARE [facility] Specimen Type POC Capillary 07/11/2025 1:54 PM EDT [facility] Blood Capillary blood specimen / Unknown 07/11/2025 1:52 PM EDT 07/11/2025 1:54 PM EDT Dorcas Hennessy MD LAB POINT OF CARE TE ST DOCKED DEVICE UNSOLICITED RESULTS Final Result [facility] [address] [place] [address] * (ABNORMAL) POCT glucose meter (07/11/2025 12:12 PM EDT) [facility] POCT Glucose 154(H) 74 - 99 [...] 07/11/2025 12:13 PM EDT [facility] [employer] Lm Ayana 07/11/2025 12:13 PM EDT [facility] Device ID [id number] 07/11/2025 12:13 PM EDT [facility] Specimen Type POC Capillary 07/11/2025 12:13 PM EDT [facility] Blood Capillary blood specimen / Unknown 07/11/2025 12:12 PM EDT 07/11/2025 12:13 PM EDT us Luanne Crawford MD LAB POINT OF CARE TEST DOCKED DEVICE UNSOLICITED RESULTS Final Result Performing Organization Address City/[facility] Co de Phone Number [facility] [address] [place] [address] * (ABNORMAL) POCT glucose meter (07/11/2025 9:57 AM EDT) [facility] POCT Glucose 135(H) 74 - 99 [...] Comment 07/11/2025 9:59 AM EDT [facility] [employer] Ayana Amato 07/11/2025 9:59 AM EDT [facility]ARE LAB Device ID [id number] 07/11/2025 9:59 AM EDT [facility] Specimen Type POC Capillary 07/11/2025 9:59 AM EDT [facility] Blood Capillary blood specimen / Unknown 07/11/2025 9:57 AM EDT 07/11/2025 9:59 AM EDT us Luanne Crawford MD LAB POINT OF CARE TEST DOCKED DEVICE UNSOLICITED RESULTS Final Result Performing Organization Address City/[facility] Co de Phone Number [facility] [address] [place] [address] * DE CRITICAL CARE, E/M 30-74 MINUTES (07/11/2025 8:41 [...] POCT glucose meter (07/11/2025 8:13 AM EDT) [facility] POCT Glucose 140(H) 74 - 99 mg/dL 07/11/2025 8:15 AM EDT [facility] Comment:Accuracy of a glucos e result [...] for testing. Comment 07/11/2025 8:15 AM EDT [facility] [employer] Ayana Amato 07/11/2025 8:15 AM EDT [facility] Device ID [id number] 07/11/2025 8:15 AM EDT [facility] Specimen Type POC Capillary 07/11/2025 8:15 AM EDT [facility] Blood Capillary blood specimen / Unknown 07/11/2025 8:13 AM EDT 07/11/2025 8:15 AM EDT Luanne Crawford MD LAB POINT OF CARE TEST DOCKED DEVICE UNSOLICITED RESULTS Final Result Performing Organization Address [facility] Co de Phone Number [facility]ARE [facility] [address] [place] [address] * (ABNORMAL) POCT glucose meter (07/11/2025 6:03 [...] Comment 07/11/2025 6:05 AM EDT [facility] [employer] Cheyanne Briceño 07/11/2025 6:05 AM EDT [facility] Device ID [id number] 07/11/2025 6:05 AM EDT [facility] Specimen Type POC Capillary 07/11/2025 6:05 AM EDT [facility] Blood Capillary blood specimen / Unknown 07/11/2025 6:03 AM EDT 07/11/2025 6:05 AM EDT us Luanne Crawford MD LAB POINT OF CARE TEST DOCKED DEVICE UNSOLICITED RESULTS Final Result Performing Organization Address City/[facility] de Phone Number [facility] [address] [place] [address] * (ABNORMAL) POCT glucose meter (07/11/2025 4:04 [...] 07/11/2025 4:06 AM EDT [facility] [employer] Cheyanne Briceño 07/11/2025 4:06 AM EDT [facility] Device ID [id number] 07/11/2025 4:06 AM EDT [facility] Specimen Type POC Capillary 07/11/2025 4:06 AM EDT [facility] Blood Capillary blood specimen / Unknown 07/11/2025 4:04 AM EDT 07/11/2025 4:06 AM EDT us Luanne Crawford MD LAB POINT OF CARE TEST DOCKED DEVICE UNSOLICITED RESULTS Final Result [facility] [address] [place] [address] * (ABNORMAL) POCT glucose meter (07/11/2025 2:02 AM EDT) [facility] POCT Glucose 130(H) 74 - 99 mg/dL [...] 07/11/2025 2:03 AM EDT [facility] [employer] Cheyanne Briceño 07/11/2025 2:03 AM EDT [facility] Device ID [id number] 07/11/2025 2:03 AM EDT [facility] Specimen Type POC Capillary 07/11/2025 2:03 AM EDT [facility] Blood Capillary blood specimen / Unknown 07/11/2025 2:02 AM EDT 07/11/2025 2:03 AM EDT Luanne Crawford MD LAB POINT OF CARE TEST DOCKED DEVICE UNSOLICITED RESULTS Final Result Performing Organization Address City/[facility]/ZIP Co de Phone Number [facility] [address] [place] [address] * Phosphorus (07/11/2025 12:09 AM EDT) Phosphorus, Plasma 3.7 2.5 - 4.5 mg/dL 07/11/2025 12:54 AM EDT [facility] Blood Venous blood specimen / Unknown Venipuncture / Unknown 07/11/2025 12:09 AM EDT 07/11/2025 12:26 AM EDT us Luanne Crawford MD LAB BLOOD ORDERABLES Final Result Performing Organization Address City/[facility] Co de Phone Number [facility] [address] [place] [address] * (ABNORMAL) Magnesium, Plasma (07/11/2025 12:09 AM EDT) Magnesium, Plasma 1.8(L) 1.9 - 2.4 mg/dL 07/11/2025 12:54 AM EDT [facility] Blood Venous blood specimen / Unknown Venipuncture / Unknown 07/11/2025 12:09 AM EDT 07/11/2025 12:26 AM EDT Luanne Crawford MD LAB BLOOD ORDERABLES Final Result [facility] [address] [place] [address] * (ABNORMAL) Basic Metabolic Panel, Plasma (07/11/2025 12:09 AM EDT) Glucose, Plasma 163(H) 74 - 99 mg/dL 07/11/2025 12:54 AM EDT [facility] BUN, Plasma 20 7 - 21 mg/dL 07/11/2025 12:54 AM EDT [facility] Creatinine, Plasma 0.99 0.60 - 1.10 mg/dL 07/11/2025 12:54 AM EDT [facility] BUN/Creatinine Ratio 20 07/11/2025 12:54 AM EDT [facility] Sodium, Plasma 141 136 - 145 mmol/L 07/11/2025 12:54 AM EDT [facility] Potassium, Plasma 3.8 3.6 - 4.9 mmol/L 07/11/2025 12:54 AM EDT [facility] Chloride, Plasma 104 97 - 107 mmol/L 07/11/2025 12:54 AM EDT [facility] CO2, Plasma 27 22 - 29 mmol/L 07/11/2025 12:54 AM EDT [facility] Anion Gap 10 6 - 16 mmol/L 07/11/2025 12:54 AM EDT [facility] Total Calcium, Plasma 9.1 8.9 - 10.2 mg/dL 07/11/2025 12:54 AM EDT [facility] eGFRcr 70.0 mL/min/1.7 3m*2 07/11/2025 12:54 AM EDT [facility] Comment:Reported eGFRcr in m L/min/1.73m2 is based the CKD-EPI 2020 equation that does not use a race coefficient. Blood Venous blood specimen / Unknown Venipuncture / Unknown 07/11/2025 12:09 AM EDT 07/11/2025 12:26 AM EDT us Luanne Crawford MD LAB BLOOD ORDERABLES Final Result [facility] [address] [place] [address] * (ABNORMAL) CBC W/O Differential (07/11/2025 12:09 AM EDT) WBC Count 13.23(H) 3.70 - 10.30 10*3/uL LAB HEMATOLOGY METHOD 07/11/2025 12:36 AM EDT [facility] RBC Count 3.65(L) 3.90 - 5.20 10*6/uL LAB HEMATOLOGY METHOD 07/11/2025 12:36 AM EDT [facility] HGB 10.1(L) 11.2 - 15.7 g/dL LAB HEMATOLOGY METHOD 07/11/2025 12:36 AM EDT [facility] HCT 32.1(L) 34.0 - 45.0 % LAB HEMATOLOGY METHOD 07/11/2025 12:36 AM EDT [facility] Platelet Count 270 155 - 369 10*3/uL LAB HEMATOLOGY METHOD 07/11/2025 12:36 AM EDT [facility] MCV 88 79 - 98 fL LAB HEMATOLOGY METHOD 07/11/2025 12:36 AM EDT [facility] MCH 27.7 26.0 - 32.0 pg LAB HEMATOLOGY METHOD 07/11/2025 12:36 AM EDT [facility] MCHC 31.5 30.7 - 35.5 g/dL LAB HEMATOLOGY METHOD 07/11/2025 12:36 AM EDT [facility] RDW 17.9(H) 11.5 - 14.5 % LAB HEMATOLOGY METHOD 07/11/2025 12:36 AM EDT [facility] MPV 10.7 8.8 - 12.5 fL LAB HEMATOLOGY METHOD 07/11/2025 12:36 AM EDT [facility] nRBC 0.0 <=0.0 per 100 WBCs LAB HEMATOLOGY METHOD 07/11/2025 12:36 AM EDT [facility] Blood Venous blood specimen / Unknown Venipuncture / Unknown 07/11/2025 12:09 AM EDT 07/11/2025 12:29 AM EDT us Luanne Crawford MD LAB BLOOD ORDERABLES Final Result [facility] [address] [place] [address] * (ABNORMAL) POCT glucose meter (07/11/2025 12:04 AM EDT) [facility] POCT Glucose 156(H) 74 - 99 mg/dL 07/11/2025 12:06 AM EDT [facility] Comment:Accuracy of a glucos e result [...] Comment 07/11/2025 12:06 AM EDT [facility] [employer] Cheyanne Briceño 07/11/2025 12:06 AM EDT [facility]ARE [facility] Device ID [id number] 07/11/2025 12:06 AM EDT [facility] Specimen Type POC Capillary 07/11/2025 12:06 AM EDT [facility] Blood Capillary blood specimen / Unknown 07/11/2025 12:04 AM EDT 07/11/2025 12:06 AM EDT us Luanne Crawford MD LAB POINT OF CARE TEST DOCKED DEVICE UNSOLICITED RESULTS Final Result Performing Organization Address City/[facility] Co de Phone Number [facility] [address] [place] [address] * (ABNORMAL) POCT glucose meter (07/10/2025 10:02 PM EDT) [facility] POCT Glucose 202(H) 74 - 99 [...] Comment 07/10/2025 10:03 PM EDT [facility] [employer] Lidia Ugalde 07/10/2025 10:03 PM EDT [facility]ARE LAB Device ID [id number] 07/10/2025 10:03 PM EDT [facility] Specimen Type POC Capillary 07/10/2025 10:03 PM EDT [facility] Blood Capillary blood specimen / Unknown 07/10/2025 10:02 PM EDT 07/10/2025 10:03 PM EDT us Luanne Crawford MD LAB POINT OF CARE TEST DOCKED DEVICE UNSOLICITED RESULTS Final Result Performing Organization Address City/[facility]/ZIP Co de Phone Number [facility] [address] [place] [address] * (ABNORMAL) Blood gas panel, arterial (07/10/2025 8:23 PM EDT) pH, Arterial 7.30(L) 7.35 - 7.45 LAB HEMATOLOGY METHOD 07/10/2025 8:40 PM EDT [facility] pCO2, Arterial 57(H) 35 - 48 mmHg LAB HEMATOLOGY METHOD 07/10/2025 8:40 PM EDT [facility] pO2, Arterial 80(L) 83 - 108 mmHg LAB HEMATOLOGY METHOD 07/10/2025 8:40 PM EDT [facility] SO2, Measured, Arterial 95 94 - 98 % LAB HEMATOLOGY METHOD 07/10/2025 8:40 PM EDT [facility] Base Excess, Arterial 1.1 -2.0 - 3.0 mmol/L LAB HEMATOLOGY METHOD 07/10/2025 8:40 PM EDT [facility] Bicarbonate, Calculated, Arterial 28(H) 22 - 26 mmol/L LAB HEMATOLOGY METHOD 07/10/2025 8:40 PM EDT [facility] Hematocrit, Whole Blood 31.5(L) 34.0 - 45.0 % LAB HEMATOLOGY METHOD 07/10/2025 8:40 PM EDT [facility] Sodium, Whole Blood 138 136 - 145 mmol/L LAB HEMATOLOGY METHOD 07/10/2025 8:40 PM EDT [facility] Potassium, Whole Blood 3.9 3.6 - 4.9 mmol/L LAB HEMATOLOGY METHOD 07/10/2025 8:40 PM EDT [facility] Chloride, Whole Blood 103 97 - 107 mmol/L LAB HEMATOLOGY METHOD 07/10/2025 8:40 PM EDT [facility] Glucose, Whole Blood 206(H) 74 - 99 mg/dL LAB HEMATOLOGY METHOD 07/10/2025 8:40 PM EDT [facility] Ionized Calcium, Whole Blood 5.0 4.6 - 5.1 mg/dL LAB HEMATOLOGY METHOD 07/10/2025 8:40 PM EDT [facility] Lactate, Arterial, Whole Blood 1.7(H) 0.5 - 1.6 mmol/L LAB HEMATOLOGY METHOD 07/10/2025 8:40 PM EDT [facility] Blood Arterial blood specimen / Unknown Arterial Puncture / Unknown 07/10/2025 8:23 PM EDT 07/10/2025 8:35 PM EDT us Luanne Crawford MD LAB BLOOD ORDERABLES Final Result [facility] [address] [place] [address] * (ABNORMAL) POCT glucose meter (07/10/2025 8:03 [...] Comment 07/10/2025 8:05 PM EDT [facility] [employer] Cheyanne Briceño 07/10/2025 8:05 PM EDT [facility]ARE LAB Device ID [id number] 07/10/2025 8:05 PM EDT [facility] Specimen Type POC Capillary 07/10/2025 8:05 PM EDT [facility] Blood Capillary blood specimen / Unknown 07/10/2025 8:03 PM EDT 07/10/2025 8:05 PM EDT us Luanne Crawford MD LAB POINT OF CARE TEST DOCKED DEVICE UNSOLICITED RESULTS Final Result [facility] [address] [place] [address] * (ABNORMAL) POCT glucose meter (07/10/2025 6:22 PM EDT) Pathologist [facility] POCT Glucose 150(H) 74 - 99 [...] Comment 07/10/2025 6:25 PM EDT [facility] [employer] ID Zara Segovia 025 6:25 PM EDT HEALTHCARE LAB Device ID [id number] 07/10/2025 6:25 PM EDT [facility] LAB Specimen Type POC Capillary 07/10/2025 6:25 PM EDT [facility] Blood Capillary blood specimen / Unknown 07/10/2025 6:22 PM EDT 07/10/2025 6:25 PM EDT Luanne Crawford MD LAB POINT OF CARE TEST DOCKED DEVICE UNSOLICITED RESULTS Final Result Performing Organization Address City/[facility] Co de Phone Number [facility] [address] [place] [address] * (ABNORMAL) POCT glucose meter (07/10/2025 2:17 PM EDT) [facility] POCT Glucose 145(H) 74 - 99 [...] for testing. Comment 07/10/2025 2:19 PM EDT [facility] [employer] Zara Segovia 025 2:19 PM EDT HEALTHCARE LAB Device ID [id number] 07/10/2025 2:19 PM EDT HEALTHC[facility] LAB Specimen Type POC Arterial 07/10/2025 2:19 PM EDT [facility] Blood Arterial blood specimen / Unknown 07/10/2025 2:17 PM EDT 07/10/2025 2:19 PM EDT us Luanne Crawford MD LAB POINT OF CARE TEST DOCKED DEVICE UNSOLICITED RESULTS Final Result [facility] [address] [place] [id number] * XR Abdomen 1 View (07/10/2025 12:03 [...] of the abdomen. COMPARISON: None. FINDINGS: Limited [id number] abdominal radiograph for the purpose of locating tube position. The tip of the nasogastric tube is within the mid stomach. Procedure Note Bernabe Sen MD - 07/10/2025 CLINICAL INDICATION: feeding tube placement TECHNIQUE: Supine radiograph of the abdomen. COMPARISON: None. FINDINGS: Limited [id number] abdominal radiograph for the purpose of locatingtube position. The tip of the nasogastric tube is within the mid stomach. IMPRESSION: The tip of the nasogastric tube is within the mid stomach. CRITICAL RESULT: No. COMMUNICATION: Per this written report. Drafted by Bernabe Sen MD on 07/10/2025 12:32 PM Final report signed by Bernabe eSn MD on 07/10/2025 12:32 PM us Luanne [...] Comment 07/10/2025 12:02 PM EDT [facility] [employer] ID Zara Segovia 025 12:02 PM EDT [facility] Device ID [id number] 07/10/2025 12:02 PM EDT [facility] Specimen Type POC Arterial 07/10/2025 12:02 PM EDT [facility] Blood Arterial blood specimen / Unknown 07/10/2025 12:00 PM EDT 07/10/2025 12:02 PM EDT us Luanne Crawford MD LAB POINT OF CARE TEST DOCKED DEVICE UNSOLICITED RESULTS Final Result Performing Organization Address City/[facility] Co de Phone Number [facility]ALTHCARE LAB [address] [place] [address] * (ABNORMAL) POCT glucose meter (07/10/2025 9:50 AM EDT) [facility] Signature POCT Glucose 134(H) 74 - 99 mg/dL [...] Comment 07/10/2025 9:52 AM EDT [facility] [employer] ID Zara Segovia 025 9:52 AM EDT [facility] LAB Device ID [id number] 07/10/2025 9:52 AM EDT [facility] Specimen Type POC Arterial 07/10/2025 9:52 AM EDT [facility] Blood Arterial blood specimen / Unknown 07/10/2025 9:50 AM EDT 07/10/2025 9:52 AM EDT us Luanne Crawford MD LAB POINT OF CARE TEST DOCKED DEVICE UNSOLICITED RESULTS Final Result Performing Organization Address City/[facility] Co de Phone Number [facility] [address] [place] [address] * ECG Adult (07/10/2025 8:42 AM EDT) EKG DIAGNOSIS CLASS Abnormal MUSE ECG Ventricular Rate 79 BPM MUSE ECG Atrial Rate 79 BPM MUSE ECG DE Interval 188 ms MUSE ECG QRSD Interval 90 ms MUSE ECG QT Interval 354 ms MUSE ECG QTC Interval 405 ms MUSE ECG P [place] 44 degrees MUSE ECG R [place] 17 degrees MUSE ECG T Wave [place] 27 degrees MUSE ECG Diagnosis Sinus rhythm with frequent premature ventricular complexes MUSE ECG Diagnosis Low voltage QRS MUSE ECG Diagnosis Cannot rule out Anterior infarct , age undetermined MUSE ECG Diagnosis MUSE ECG Diagnosis MUSE ECG Diagnosis Confirmed by Octavio Walsh ([id number]) on 07/10/2025 11:49:20 AM MUSE ECG 07/10/2025 8:42 AM EDT 07/10/2025 11:49 AM EDT us Luanne Crawford MD ECG ORDERABLES Final Resu lt MUSE ECG * [facility], E/M 30-74 MINUTES (07/10/2025 8:15 [...] Comment 07/10/2025 9:22 AM EDT [facility] [employer] ID Zara Segovia 025 9:22 AM EDT [facility] Device ID [id number] 07/10/2025 9:22 AM EDT [facility] Specimen Type POC Arterial 07/10/2025 9:22 AM EDT [facility] Blood Arterial blood specimen / Unknown 07/10/2025 8:04 AM EDT 07/10/2025 9:22 AM EDT us Luanne Crawford MD LAB POINT OF CARE TEST DOCKED DEVICE UNSOLICITED RESULTS Final Result [facility] [address] [place] [address] * (ABNORMAL) POCT glucose meter (07/10/2025 6:04 [...] Comment 07/10/2025 6:05 AM EDT [facility] [employer] ID Cheyanne Briceño 07/10/2025 6:05 AM EDT [facility]ALTH[facility]ARE LAB Device ID [id number] 07/10/2025 6:05 AM EDT [facility] LAB Specimen Type POC Arterial 07/10/2025 6:05 AM EDT [facility] Blood Arterial blood specimen / Unknown 07/10/2025 6:04 AM EDT 07/10/2025 6:05 AM EDT us Luanne Crawford MD LAB POINT OF CARE TEST DOCKED DEVICE UNSOLICITED RESULTS Final Result Performing Organization Address City/State/[facility] Co de Phone Number [facility]ALTHCARE [facility] [address] [place] [address] * (ABNORMAL) POCT glucose meter (07/10/2025 3:59 AM EDT) [facility] POCT Glucose 153(H) 74 - 99 [...] 07/10/2025 4:01 AM EDT [facility] [employer] Cheyanne Briceño 07/10/2025 4:01 AM EDT [facility] LAB Device ID [id number] 07/10/2025 4:01 AM EDT [facility] Specimen Type POC Arterial 07/10/2025 4:01 AM EDT [facility] Blood Arterial blood specimen / Unknown 07/10/2025 3:59 AM EDT 07/10/2025 4:01 AM EDT us Luanne Crawford MD LAB POINT OF CARE TEST DOCKED DEVICE UNSOLICITED RESULTS Final Result Performing Organization Address City/[facility] Co de Phone Number [facility]ALTH[facility]ARE [facility] [address] [place] [address] * (ABNORMAL) POCT glucose meter (07/10/2025 3:01 [...] for testing. Comment 07/10/2025 3:03 AM EDT [facility] [employer] Cheyanne Briceño 07/10/2025 3:03 AM EDT [facility] Device ID [id number] 07/10/2025 3:03 AM EDT [facility] Specimen Type POC Arterial 07/10/2025 3:03 AM EDT [facility] Blood Arterial blood specimen / Unknown 07/10/2025 3:01 AM EDT 07/10/2025 3:03 AM EDT us Luanne Crawford MD LAB POINT OF CARE TEST DOCKED DEVICE UNSOLICITED RESULTS Final Result Performing Organization Address City/[facility] Co de Phone Number [facility] [address] [place] [address] * (ABNORMAL) POCT glucose meter (07/10/2025 2:03 [...] Comment 07/10/2025 2:04 AM EDT [facility] [employer] Cheyanne Briceño 07/10/2025 2:04 AM EDT [facility] Device ID [id number] 07/10/2025 2:04 AM EDT [facility] Specimen Type POC Arterial 07/10/2025 2:04 AM EDT [facility] Blood Arterial blood specimen / Unknown 07/10/2025 2:03 AM EDT 07/10/2025 2:04 AM EDT Luanne Crawford MD LAB POINT OF CARE TEST DOCKED DEVICE UNSOLICITED RESULTS Final Result Performing Organization Address City/[facility] Co de Phone Number [facility]ARE [facility] [address] [place] [address] * (ABNORMAL) POCT glucose meter (07/10/2025 12:59 [...] 07/10/2025 1:00 AM EDT [facility] [employer] Cheyanne Briceño 07/10/2025 1:00 AM EDT [facility] Device ID [id number] 07/10/2025 1:00 AM EDT [facility] Specimen Type POC Arterial 07/10/2025 1:00 AM EDT [facility] Blood Arterial blood specimen / Unknown 07/10/2025 12:59 AM EDT 07/10/2025 1:00 AM EDT us Luanne Crawford MD LAB POINT OF CARE TEST DOCKED DEVICE UNSOLICITED RESULTS Final Result Performing Organization Address City/[facility] Co de Phone Number [facility]ARE [facility] [address] [place] [address] * Phosphorus (07/10/2025 12:03 AM EDT) Phosphorus, Plasma 4.2 2.5 - 4.5 mg/dL 07/10/2025 12:40 AM EDT [facility] Blood Arterial blood specimen / Unknown Venipuncture / Unknown 07/10/2025 12:03 AM EDT 07/10/2025 12:10 AM EDT Luanne Crawford MD LAB BLOOD ORDERABLES Final Result Performing Organization Address City/[facility]/ZIP Co de Phone Number [facility] [address] [place] [address] * Magnesium, Plasma (07/10/2025 12:03 AM EDT) Magnesium, Plasma 2.1 1.9 - 2.4 mg/dL 07/10/2025 12:40 AM EDT [facility] Blood Arterial blood specimen / Unknown Venipuncture / Unknown 07/10/2025 12:03 AM EDT 07/10/2025 12:10 AM EDT Luanne Crawford MD LAB BLOOD ORDERABLES Final Result Performing Organization Address City/[facility]/ZIP Co de Phone Number [facility] [address] [place] [address] * (ABNORMAL) Basic Metabolic Panel, Plasma (07/10/2025 12:03 AM EDT) Glucose, Plasma 155(H) 74 - 99 mg/dL 07/10/2025 12:40 AM EDT [facility] BUN, Plasma 22(H) 7 - 21 mg/dL 07/10/2025 12:40 AM EDT [facility] Creatinine, Plasma 1.25(H) 0.60 - 1.10 mg/dL 07/10/2025 12:40 AM EDT [facility] BUN/Creatinine Ratio 18 07/10/2025 12:40 AM EDT [facility] Sodium, Plasma 134(L) 136 - 145 mmol/L 07/10/2025 12:40 AM EDT [facility] Potassium, Plasma 3.7 3.6 - 4.9 mmol/L 07/10/2025 12:40 AM EDT [facility] Chloride, Plasma 101 97 - 107 mmol/L 07/10/2025 12:40 AM EDT [facility] CO2, Plasma 25 22 - 29 mmol/L 07/10/2025 12:40 AM EDT [facility] Anion Gap 8 6 - 16 mmol/L 07/10/2025 12:40 AM EDT [facility] Total Calcium, Plasma 9.3 8.9 - 10.2 mg/dL 07/10/2025 12:40 AM EDT [facility] eGFRcr 52.9 mL/min/1.7 3m*2 07/10/2025 12:40 AM EDT [facility] Comment:Reported eGFRcr in m L/min/1.73m2 is based the CKD-EPI 2020 equation that does not use a race coefficient. Blood Arterial blood specimen / Unknown Venipuncture / Unknown 07/10/2025 12:03 AM EDT 07/10/2025 12:10 AM EDT us Luanne Crawford MD LAB BLOOD ORDERABLES Final Result [facility] [address] [place] [address] * (ABNORMAL) CBC W/O Differential (07/10/2025 12:03 AM EDT) WBC Count 17.64(H) 3.70 - 10.30 10*3/uL LAB HEMATOLOGY METHOD 07/10/2025 12:22 AM EDT [facility] RBC Count 3.83(L) 3.90 - 5.20 10*6/uL LAB HEMATOLOGY METHOD 07/10/2025 12:22 AM EDT [facility] HGB 10.6(L) 11.2 - 15.7 g/dL LAB HEMATOLOGY METHOD 07/10/2025 12:22 AM EDT [facility] HCT 33.3(L) 34.0 - 45.0 % LAB HEMATOLOGY METHOD 07/10/2025 12:22 AM EDT [facility] Platelet Count 309 155 - 369 10*3/uL LAB HEMATOLOGY METHOD 07/10/2025 12:22 AM EDT [facility] MCV 87 79 - 98 fL LAB HEMATOLOGY METHOD 07/10/2025 12:22 AM EDT [facility] MCH 27.7 26.0 - 32.0 pg LAB HEMATOLOGY METHOD 07/10/2025 12:22 AM EDT [facility] MCHC 31.8 30.7 - 35.5 g/dL LAB HEMATOLOGY METHOD 07/10/2025 12:22 AM EDT [facility] RDW 17.9(H) 11.5 - 14.5 % LAB HEMATOLOGY METHOD 07/10/2025 12:22 AM EDT [facility] MPV 10.3 8.8 - 12.5 fL LAB HEMATOLOGY METHOD 07/10/2025 12:22 AM EDT [facility] nRBC 0.0 <=0.0 per 100 WBCs LAB HEMATOLOGY METHOD 07/10/2025 12:22 AM EDT [facility] Blood Arterial blood specimen / Unknown Venipuncture / Unknown 07/10/2025 12:03 AM EDT 07/10/2025 12:11 AM EDT us Luanne Crawford MD LAB BLOOD ORDERABLES Final Result [facility] [address] [place] [address] * (ABNORMAL) POCT glucose meter (07/10/2025 12:02 [...] Comment 07/10/2025 12:04 AM EDT [facility] [employer] Cheyanne Briceño 07/10/2025 12:04 AM EDT [facility] Device ID [id number] 07/10/2025 12:04 AM EDT [facility] Specimen Type POC Arterial 07/10/2025 12:04 AM EDT [facility] Blood Arterial blood specimen / Unknown 07/10/2025 12:02 AM EDT 07/10/2025 12:04 AM EDT Luanne Crawford MD LAB POINT OF CARE TEST DOCKED DEVICE UNSOLICITED RESULTS Final Result Performing Organization Address City/[facility]/ZIP Co de Phone Number HEALTHCARE LAB [address] [place] [address] * (ABNORMAL) POCT glucose meter (07/09/2025 10:01 [...] Comment 07/09/2025 10:04 PM EDT [facility] [employer] ID Cheyanne Briceño 07/09/2025 10:04 PM EDT [facility] Device ID [id number] 07/09/2025 10:04 PM EDT [facility] Specimen Type POC Arterial 07/09/2025 10:04 PM EDT [facility] Blood Arterial blood specimen / Unknown 07/09/2025 10:01 PM EDT 07/09/2025 10:04 PM EDT us Luanne Crawford MD LAB POINT OF CARE TEST DOCKED DEVICE UNSOLICITED RESULTS Final Result Performing Organization Address City/[facility]/ZIP Co de Phone Number [facility] [address] [place] [address] * (ABNORMAL) POCT glucose meter (07/09/2025 8:09 [...] Comment 07/09/2025 8:11 PM EDT [facility] [employer] ID Cheyanne Briceño 07/09/2025 8:11 PM EDT [facility] LAB Device ID [id number] 07/09/2025 8:11 PM EDT [facility] Specimen Type POC Capillary 07/09/2025 8:11 PM EDT [facility] Blood Capillary blood specimen / Unknown 07/09/2025 8:09 PM EDT 07/09/2025 8:11 PM EDT us Luanne Crawford MD LAB POINT OF CARE TEST DOCKED DEVICE UNSOLICITED RESULTS Final Result Performing Organization Address City/State/[facility] Co de Phone Number [facility]ARE [facility] [address] [place] [address] * (ABNORMAL) POCT glucose meter (07/09/2025 6:22 PM EDT) [facility] POCT Glucose 151(H) 74 - 99 [...] Comment 07/09/2025 6:24 PM EDT [facility] [employer] ID Jeana Bear 07/09/2025 6:24 PM EDT HEALTHCARE LAB Device ID [id number] 07/09/2025 6:24 PM EDT [facility] LAB Specimen Type POC Capillary 07/09/2025 6:24 PM EDT [facility] Blood Capillary blood specimen / Unknown 07/09/2025 6:22 PM EDT 07/09/2025 6:24 PM EDT us Luanne Crawford MD LAB POINT OF CARE TEST DOCKED DEVICE UNSOLICITED RESULTS Final Result [facility] [address] [place] [address] * (ABNORMAL) POCT glucose meter (07/09/2025 4:06 [...] for testing. Comment 07/09/2025 4:07 PM EDT [facility] [employer] Jeana Bear 07/09/2025 4:07 PM EDT [facility] Device ID [id number] 07/09/2025 4:07 PM EDT [facility] Specimen Type POC Capillary 07/09/2025 4:07 PM EDT [facility] Blood Capillary blood specimen / Unknown 07/09/2025 4:06 PM EDT 07/09/2025 4:07 PM EDT us Luanne Crawford MD LAB POINT OF CARE TEST DOCKED DEVICE UNSOLICITED RESULTS Final Result Performing Organization Address City/[facility]/ZIP Co de Phone Number [facility] [address] [place] [address] * (ABNORMAL) Blood gas, arterial (07/09/2025 3:16 PM EDT) pH, Arterial 7.31(L) 7.35 - 7.45 LAB HEMATOLOGY METHOD 07/09/2025 3:40 PM EDT [facility] pCO2, Arterial 53(H) 35 - 48 mmHg LAB HEMATOLOGY METHOD 07/09/2025 3:40 PM EDT [facility] pO2, Arterial 153(H) 83 - 108 mmHg LAB HEMATOLOGY METHOD 07/09/2025 3:40 PM EDT [facility] SO2, Measured, Arterial 100(H) 94 - 98 % LAB HEMATOLOGY METHOD 07/09/2025 3:40 PM EDT [facility] Base Excess, Arterial -0.4 -2.0 - 3.0 mmol/L LAB HEMATOLOGY METHOD 07/09/2025 3:40 PM EDT [facility] Bicarbonate, Calculated, Arterial 26 22 - 26 mmol/L LAB HEMATOLOGY METHOD 07/09/2025 3:40 PM EDT [facility] Hematocrit, Whole Blood 30.6(L) 34.0 - 45.0 % LAB HEMATOLOGY METHOD 07/09/2025 3:40 PM EDT [facility] Sodium, Whole Blood 141 136 - 145 mmol/L LAB HEMATOLOGY METHOD 07/09/2025 3:40 PM EDT [facility] Potassium, Whole Blood 3.4(L) 3.6 - 4.9 mmol/L LAB HEMATOLOGY METHOD 07/09/2025 3:40 PM EDT [facility] Chloride, Whole Blood 107 97 - 107 mmol/L LAB HEMATOLOGY METHOD 07/09/2025 3:40 PM EDT [facility] Glucose, Whole Blood 141(H) 74 - 99 mg/dL LAB HEMATOLOGY METHOD 07/09/2025 3:40 PM EDT [facility] Ionized Calcium, Whole Blood 4.9 4.6 - 5.1 mg/dL LAB HEMATOLOGY METHOD 07/09/2025 3:40 PM EDT [facility] Lactate, Arterial, Whole Blood 0.9 0.5 - 1.6 mmol/L LAB HEMATOLOGY METHOD 07/09/2025 3:40 PM EDT [facility] Blood Arterial blood specimen / Unknown Arterial Line / Unknown 07/09/2025 3:16 PM EDT 07/09/2025 3:38 PM EDT us Luanne Crawford MD LAB BLOOD ORDERABLES Final Result [facility] [address] [place] [address] * (ABNORMAL) POCT glucose meter (07/09/2025 3:01 PM EDT) POCT Glucose 135(H) 74 - 99 mg/dL 07/09/2025 3:03 PM EDT [facility] Comment:Accuracy of a glucos e result [...] 07/09/2025 3:03 PM EDT [facility] [employer] Jeana Bear 07/09/2025 3:03 PM EDT [facility] Device ID [id number] 07/09/2025 3:03 PM EDT [facility] Specimen Type POC Capillary 07/09/2025 3:03 PM EDT [facility] Blood Capillary blood specimen / Unknown 07/09/2025 3:01 PM EDT 07/09/2025 3:03 PM EDT Luanne Crawford MD LAB POINT OF CARE TEST DOCKED DEVICE UNSOLICITED RESULTS Final Result Performing Organization Address City/State/[facility] Co de Phone Number [facility]ARE [facility] [address] [place] [address] * (ABNORMAL) POCT glucose meter (07/09/2025 1:57 PM EDT) [facility] POCT Glucose 115(H) 74 - 99 mg/dL [...] 07/09/2025 1:59 PM EDT [facility] [employer] ID Jeana Bear 07/09/2025 1:59 PM EDT [facility] Device ID [id number] 07/09/2025 1:59 PM EDT [facility] Specimen Type POC Capillary 07/09/2025 1:59 PM EDT [facility] Blood Capillary blood specimen / Unknown 07/09/2025 1:57 PM EDT 07/09/2025 1:59 PM EDT us Luanne Crawford MD LAB POINT OF CARE TEST DOCKED DEVICE UNSOLICITED RESULTS Final Result Performing Organization Address City/[facility]/ZIP Co de Phone Number [facility] [address] [place] [address] * Phosphorus (07/09/2025 1:21 PM EDT) Phosphorus, Plasma 4.2 2.5 - 4.5 mg/dL 07/09/2025 2:49 PM EDT [facility] Blood Arterial blood specimen / Unknown Arterial Line / Unknown 07/09/2025 1:21 PM EDT 07/09/2025 2:01 PM EDT Luanne Crawford MD LAB BLOOD ORDERABLES Final Result Performing Organization Address City/[facility]/ZIP Co de Phone Number [facility] [address] [place] [address] * Magnesium (07/09/2025 1:21 PM EDT) Magnesium, Plasma 2.3 1.9 - 2.4 mg/dL 07/09/2025 2:49 PM EDT [facility] Blood Arterial blood specimen / Unknown Arterial Line / Unknown 07/09/2025 1:21 PM EDT 07/09/2025 2:01 PM EDT Luanne Crawford MD LAB BLOOD ORDERABLES Final Result Performing Organization Address City/[facility]/ZIP Co de Phone Number [facility] [address] [place] [address] * (ABNORMAL) Basic metabolic panel (07/09/2025 1:21 PM EDT) Glucose, Plasma 100(H) 74 - 99 mg/dL 07/09/2025 2:49 PM EDT [facility] BUN, Plasma 26(H) 7 - 21 mg/dL 07/09/2025 2:49 PM EDT [facility] Creatinine, Plasma 1.42(H) 0.60 - 1.10 mg/dL 07/09/2025 2:49 PM EDT [facility] BUN/Creatinine Ratio 18 07/09/2025 2:49 PM EDT [facility] Sodium, Plasma 140 136 - 145 mmol/L 07/09/2025 2:49 PM EDT [facility] Potassium, Plasma 3.7 3.6 - 4.9 mmol/L 07/09/2025 2:49 PM EDT [facility] Chloride, Plasma 104 97 - 107 mmol/L 07/09/2025 2:49 PM EDT [facility] CO2, Plasma 24 22 - 29 mmol/L 07/09/2025 2:49 PM EDT [facility] Anion Gap 12 6 - 16 mmol/L 07/09/2025 2:49 PM EDT [facility] Total Calcium, Plasma 9.1 8.9 - 10.2 mg/dL 07/09/2025 2:49 PM EDT [facility] eGFRcr 45.4 mL/min/1.7 3m*2 07/09/2025 2:49 PM EDT [facility] Comment:Reported eGFRcr in m L/min/1.73m2 is based the CKD-EPI 2020 equation that does not use a race coefficient. Blood Arterial blood specimen / Unknown Arterial Line / Unknown 07/09/2025 1:21 PM EDT 07/09/2025 2:01 PM EDT us Luanne Crawford MD LAB BLOOD ORDERABLES Final Result [facility] [address] [place] [address] * (ABNORMAL) POCT glucose meter (07/09/2025 1:20 PM EDT) Pathologist [facility] POCT Glucose 103(H) 74 - 99 mg/dL 07/09/2025 1:22 PM EDT [facility] Comment:Accuracy of a glucos e result [...] Comment 07/09/2025 1:22 PM EDT [facility] [employer] Jeana Bear 07/09/2025 1:22 PM EDT [facility]ALTH[facility]ARE LAB Device ID [id number] 07/09/2025 1:22 PM EDT [facility] Specimen Type POC Arterial 07/09/2025 1:22 PM EDT [facility] Blood Arterial blood specimen / Unknown 07/09/2025 1:20 PM EDT 07/09/2025 1:22 PM EDT Luanne Crawford MD LAB POINT OF CARE TEST DOCKED DEVICE UNSOLICITED RESULTS Final Result Performing Organization Address City/[facility] Co de Phone Number [facility] [address] [place] [address] * (ABNORMAL) POCT glucose meter (07/09/2025 12:44 PM EDT) [facility] POCT Glucose 110(H) 74 - 99 mg/dL [...] Comment 07/09/2025 12:45 PM EDT [facility] [employer] Jeana Bear 07/09/2025 12:45 PM EDT [facility] LAB Device ID [id number] 07/09/2025 12:45 PM EDT [facility] Specimen Type POC Capillary 07/09/2025 12:45 PM EDT [facility] Blood Capillary blood specimen / Unknown 07/09/2025 12:44 PM EDT 07/09/2025 12:45 PM EDT us Luanne Crawford MD LAB POINT OF CARE TEST DOCKED DEVICE UNSOLICITED RESULTS Final Result Performing Organization Address City/[facility]/ZIP Co de Phone Number [facility] [address] [place] [address] * (ABNORMAL) POCT glucose meter (07/09/2025 12:19 [...] Comment 07/09/2025 12:21 PM EDT [facility] [employer] ID Jeana Bear 07/09/2025 12:21 PM EDT [facility]ALTH[facility] LAB Device ID [id number] 07/09/2025 12:21 PM EDT [facility] Specimen Type POC Capillary 07/09/2025 12:21 PM EDT [facility] Blood Capillary blood specimen / Unknown 07/09/2025 12:19 PM EDT 07/09/2025 12:21 PM EDT us Luanne Crawford MD LAB POINT OF CARE TEST DOCKED DEVICE UNSOLICITED RESULTS Final Result Performing Organization Address City/[facility]/ZIP Co de Phone Number [facility] [address] [place] [address] * Blood Culture (Aerobic/Anaerobet Set) (07/09/2025 10:35 AM EDT) [facility] Culture No growth at day 5 KAROLINA 07/14/2025 12:02 PM EDT [facility] Blood Structure of antecubital vein / Unknown Venipuncture / Unknown 07/09/2025 10:35 AM EDT 07/09/2025 10:50 AM EDT us My Charles MD LAB MICROBIOLOGY - GENE RAL ORDERABLES Final Result [facility] [address] [place] [address] * Blood Culture (Aerobic/Anaerobet Set) (07/09/2025 10:35 AM EDT) [facility] Culture No growth at day 5 KAROLINA 07/14/2025 12:02 PM EDT [facility] Blood Structure of antecubital vein / Unknown Venipuncture / Unknown 07/09/2025 10:35 AM EDT 07/09/2025 10:50 AM EDT us My Charles MD LAB MICROBIOLOGY - GENE RAL ORDERABLES Final Result Performing Organization Address City/[facility]/ZIP Co de Phone Number [facility] [address] [place] [address] * (ABNORMAL) POCT glucose meter (07/09/2025 10:04 [...] Comment 07/09/2025 10:05 AM EDT [facility] [employer] ID Jeana Bear 07/09/2025 10:05 AM EDT HEALTHCARE LAB Device ID [id number] 07/09/2025 10:05 AM EDT [facility] Specimen Type POC Capillary 07/09/2025 10:05 AM EDT [facility] Blood Capillary blood specimen / Unknown 07/09/2025 10:04 AM EDT 07/09/2025 10:05 AM EDT us Luanne Crawford MD LAB POINT OF CARE TEST DOCKED DEVICE UNSOLICITED RESULTS Final Result Performing Organization Address City/[facility]/ZIP Co de Phone Number [facility] [address] [place] [address] * Multi Drug Resistance Test (07/09/2025 9:46 AM EDT) Culture No growth at day 1 07/10/2025 11:58 AM EDT [facility] Swab (Nares and Leann Rectal) Non-blood Collection / Unknown 07/09/2025 9:46 AM EDT 07/09/2025 10:09 AM EDT Narrative [facility] - 07/10/2025 11:58 AM EDT This test was developed and its performance characteristics determined by the [facility]. Although the media is FDA-approved, it is not FDA-approved for all specimen types submitted. The FDA has determined that such clearance or approval is not necessary. This test is used for surveillance purposes. It should not be regarded as investigational or for research. The [facility] is certified under the Clinical Laboratory Improvement Amendments of 1988 (CLIA-88) as qualified to perform high complexity clinical laboratory testing. us Luanne Crawford MD LAB MICROBIOLOGY - GENERAL ORDERABLES Final Result [facility] [address] [place] [address] * (ABNORMAL) Blood gas, arterial (07/09/2025 8:47 AM EDT) pH, Arterial 7.30(L) 7.35 - 7.45 LAB HEMATOLOGY METHOD 07/09/2025 8:55 AM EDT [facility] pCO2, Arterial 53(H) 35 - 48 mmHg LAB HEMATOLOGY METHOD 07/09/2025 8:55 AM EDT [facility] pO2, Arterial 173(H) 83 - 108 mmHg LAB HEMATOLOGY METHOD 07/09/2025 8:55 AM EDT [facility] SO2, Measured, Arterial 98 94 - 98 % LAB HEMATOLOGY METHOD 07/09/2025 8:55 AM EDT [facility] Base Excess, Arterial -0.8 -2.0 - 3.0 mmol/L LAB HEMATOLOGY METHOD 07/09/2025 8:55 AM EDT [facility] Bicarbonate, Calculated, Arterial 26 22 - 26 mmol/L LAB HEMATOLOGY METHOD 07/09/2025 8:55 AM EDT [facility] Hematocrit, Whole Blood 27.3(L) 34.0 - 45.0 % LAB HEMATOLOGY METHOD 07/09/2025 8:55 AM EDT [facility] Sodium, Whole Blood 140 136 - 145 mmol/L LAB HEMATOLOGY METHOD 07/09/2025 8:55 AM EDT [facility] Potassium, Whole Blood 2.9(L) 3.6 - 4.9 mmol/L LAB HEMATOLOGY METHOD 07/09/2025 8:55 AM EDT [facility] Chloride, Whole Blood 106 97 - 107 mmol/L LAB HEMATOLOGY METHOD 07/09/2025 8:55 AM EDT [facility] Glucose, Whole Blood 155(H) 74 - 99 mg/dL LAB HEMATOLOGY METHOD 07/09/2025 8:55 AM EDT [facility] Ionized Calcium, Whole Blood 5.0 4.6 - 5.1 mg/dL LAB HEMATOLOGY METHOD 07/09/2025 8:55 AM EDT [facility] Lactate, Arterial, Whole Blood 1.4 0.5 - 1.6 mmol/L LAB HEMATOLOGY METHOD 07/09/2025 8:55 AM EDT [facility] Blood Arterial blood specimen / Unknown Arterial Line / Unknown 07/09/2025 8:47 AM EDT 07/09/2025 8:54 AM EDT us Dorcas Hennessy MD LAB BLOOD ORDERABLES Final Resul t [facility] [address] [place] [address] * (ABNORMAL) POCT glucose meter (07/09/2025 8:01 [...] Comment 07/09/2025 8:03 AM EDT [facility] [employer] ID Jeana Bear 07/09/2025 8:03 AM EDT [facility] Device ID [id number] 07/09/2025 8:03 AM EDT [facility] Specimen Type POC Capillary 07/09/2025 8:03 AM EDT [facility] Blood Capillary blood specimen / Unknown 07/09/2025 8:01 AM EDT 07/09/2025 8:03 AM EDT us Luanne Crawford MD LAB POINT OF CARE TEST DOCKED DEVICE UNSOLICITED RESULTS Final Result [facility] [address] [place] [address] * DE CRITICAL CARE, E/M 30-74 MINUTES (07/09/2025 7:15 [...] Comment 07/09/2025 6:20 AM EDT [facility] [employer] ID Cheyanne Briceño 07/09/2025 6:20 AM EDT [facility] LAB Device ID [id number] 07/09/2025 6:20 AM EDT [facility] Specimen Type POC Arterial 07/09/2025 6:20 AM EDT [facility] Blood Arterial blood specimen / Unknown 07/09/2025 6:05 AM EDT 07/09/2025 6:20 AM EDT us Luanne Crawford MD LAB POINT OF CARE TEST DOCKED DEVICE UNSOLICITED RESULTS Final Result Performing Organization Address City/[facility]/ZIP Co de Phone Number [facility] [address] [place] [address] * (ABNORMAL) Hemoglobin A1c (07/09/2025 4:57 AM EDT) Hemoglobin A1c 7.5(H) <5.7 % 07/09/2025 12:09 PM EDT [facility] Blood Arterial blood specimen / Unknown Venipuncture / Unknown 07/09/2025 4:57 AM EDT 07/09/2025 5:07 AM EDT Narrative [facility] - 07/09/2025 12:09 PM EDT HA1C Interpretive Data: Diagnosis of Diabetes: Diabetic > or = 6.5% Pre-diabetic 5.7 to 6.4% Non-diabetic < or = 5.6% Glycemic Targets for Type I and Type II Diabetics: Non- Adults <7.0% Adults <6.0% Children and Adolescents <7.5% Source: [employer]. Standards of medical care in diabetes,2017. Diabetes Care.2017:40 (suppl 1):S1-S135. us Dorcas Hennessy MD LAB BLOOD [place] [address] * Phosphorus (07/09/2025 4:57 AM EDT) Phosphorus, Plasma 4.1 2.5 - 4.5 mg/dL 07/09/2025 5:35 AM EDT [facility] Blood Arterial blood specimen / Unknown Venipuncture / Unknown 07/09/2025 4:57 AM EDT 07/09/2025 5:06 AM EDT Luanne Crawford MD LAB BLOOD ORDERABLES Final Result Performing Organization Address City/[facility]/ZIP Co de Phone Number [facility] [address] [place] [address] * Magnesium, Plasma (07/09/2025 4:57 AM EDT) Magnesium, Plasma 2.2 1.9 - 2.4 mg/dL 07/09/2025 5:35 AM EDT [facility] Blood Arterial blood specimen / Unknown Venipuncture / Unknown 07/09/2025 4:57 AM EDT 07/09/2025 5:06 AM EDT Luanne Crawford MD LAB BLOOD ORDERABLES Final Result Performing Organization Address City/[facility]/ZIP Co de Phone Number [facility] [address] [place] [address] * (ABNORMAL) Basic Metabolic Panel, Plasma (07/09/2025 4:57 AM EDT) Glucose, Plasma 235(H) 74 - 99 mg/dL 07/09/2025 5:35 AM EDT [facility] BUN, Plasma 30(H) 7 - 21 mg/dL 07/09/2025 5:35 AM EDT [facility] Creatinine, Plasma 1.58(H) 0.60 - 1.10 mg/dL 07/09/2025 5:35 AM EDT [facility] BUN/Creatinine Ratio 19 07/09/2025 5:35 AM EDT [facility] Sodium, Plasma 136 136 - 145 mmol/L 07/09/2025 5:35 AM EDT [facility] Potassium, Plasma 3.5(L) 3.6 - 4.9 mmol/L 07/09/2025 5:35 AM EDT [facility] Chloride, Plasma 101 97 - 107 mmol/L 07/09/2025 5:35 AM EDT [facility] CO2, Plasma 23 22 - 29 mmol/L 07/09/2025 5:35 AM EDT [facility] Anion Gap 12 6 - 16 mmol/L 07/09/2025 5:35 AM EDT [facility] Total Calcium, Plasma 9.2 8.9 - 10.2 mg/dL 07/09/2025 5:35 AM EDT [facility] eGFRcr 40.0 mL/min/1.7 3m*2 07/09/2025 5:35 AM EDT [facility] Comment:Reported eGFRcr in m L/min/1.73m2 is based the CKD-EPI 2020 equation that does not use a race coefficient. Blood Arterial blood specimen / Unknown Venipuncture / Unknown 07/09/2025 4:57 AM EDT 07/09/2025 5:06 AM EDT us Luanne Crawford MD LAB BLOOD ORDERABLES Final Result [facility] [address] [place] [address] * (ABNORMAL) CBC W/O Differential (07/09/2025 4:57 AM EDT) WBC Count 32.25(H) 3.70 - 10.30 10*3/uL LAB HEMATOLOGY METHOD 07/09/2025 5:15 AM EDT [facility] RBC Count 3.89(L) 3.90 - 5.20 10*6/uL LAB HEMATOLOGY METHOD 07/09/2025 5:15 AM EDT [facility] HGB 11.0(L) 11.2 - 15.7 g/dL LAB HEMATOLOGY METHOD 07/09/2025 5:15 AM EDT [facility] HCT 33.4(L) 34.0 - 45.0 % LAB HEMATOLOGY METHOD 07/09/2025 5:15 AM EDT [facility] Platelet Count 358 155 - 369 10*3/uL LAB HEMATOLOGY METHOD 07/09/2025 5:15 AM EDT [facility] MCV 86 79 - 98 fL LAB HEMATOLOGY METHOD 07/09/2025 5:15 AM EDT [facility] MCH 28.3 26.0 - 32.0 pg LAB HEMATOLOGY METHOD 07/09/2025 5:15 AM EDT [facility] MCHC 32.9 30.7 - 35.5 g/dL LAB HEMATOLOGY METHOD 07/09/2025 5:15 AM EDT [facility] RDW 17.4(H) 11.5 - 14.5 % LAB HEMATOLOGY METHOD 07/09/2025 5:15 AM EDT [facility] MPV 10.0 8.8 - 12.5 fL LAB HEMATOLOGY METHOD 07/09/2025 5:15 AM EDT [facility] nRBC 0.0 <=0.0 per 100 WBCs LAB HEMATOLOGY METHOD 07/09/2025 5:15 AM EDT [facility] Blood Arterial blood specimen / Unknown Venipuncture / Unknown 07/09/2025 4:57 AM EDT 07/09/2025 5:07 AM EDT us Luanne Crawford MD LAB BLOOD ORDERABLES Final Result [facility] [address] [place] [address] * (ABNORMAL) POCT glucose meter (07/09/2025 4:03 [...] Comment 07/09/2025 4:05 AM EDT [facility] [employer] ID Cheyanne Briceño 07/09/2025 4:05 AM EDT [facility] Device ID [id number] 07/09/2025 4:05 AM EDT [facility] Specimen Type POC Arterial 07/09/2025 4:05 AM EDT [facility] Blood Arterial blood specimen / Unknown 07/09/2025 4:03 AM EDT 07/09/2025 4:05 AM EDT us Luanne Crawford MD LAB POINT OF CARE TEST DOCKED DEVICE UNSOLICITED RESULTS Final Result [facility] [address] [place] [address] * XR Chest 1 View (07/09/2025 3:42 [...] for testing. Comment 07/09/2025 2:17 AM EDT [facility] [employer] ID Cheyanne Briceño 07/09/2025 2:17 AM EDT [facility] Device ID [id number] 07/09/2025 2:17 AM EDT [facility] Specimen Type POC Arterial 07/09/2025 2:17 AM EDT [facility] Blood Arterial blood specimen / Unknown 07/09/2025 2:15 AM EDT 07/09/2025 2:17 AM EDT us Luanne Crawford MD LAB POINT OF CARE TEST DOCKED DEVICE UNSOLICITED RESULTS Final Result Performing Organization Address City/State/[facility] Co de Phone Number [facility] [address] [place] [address] * (ABNORMAL) Blood gas panel, arterial (07/09/2025 2:11 AM EDT) pH, Arterial 7.25(LL) 7.35 - 7.45 LAB HEMATOLOGY METHOD 07/09/2025 2:23 AM EDT [facility] pCO2, Arterial 56(H) 35 - 48 mmHg LAB HEMATOLOGY METHOD 07/09/2025 2:23 AM EDT [facility] pO2, Arterial 67(L) 83 - 108 mmHg LAB HEMATOLOGY METHOD 07/09/2025 2:23 AM EDT [facility] SO2, Measured, Arterial 91(L) 94 - 98 % LAB HEMATOLOGY METHOD 07/09/2025 2:23 AM EDT [facility] Base Excess, Arterial -2.7(L) -2.0 - 3.0 mmol/L LAB HEMATOLOGY METHOD 07/09/2025 2:23 AM EDT [facility] Bicarbonate, Calculated, Arterial 25 22 - 26 mmol/L LAB HEMATOLOGY METHOD 07/09/2025 2:23 AM EDT [facility] Hematocrit, Whole Blood 31.5(L) 34.0 - 45.0 % LAB HEMATOLOGY METHOD 07/09/2025 2:23 AM EDT [facility] Sodium, Whole Blood 135(L) 136 - 145 mmol/L LAB HEMATOLOGY METHOD 07/09/2025 2:23 AM EDT [facility] Potassium, Whole Blood 3.5(L) 3.6 - 4.9 mmol/L LAB HEMATOLOGY METHOD 07/09/2025 2:23 AM EDT [facility] Chloride, Whole Blood 103 97 - 107 mmol/L LAB HEMATOLOGY METHOD 07/09/2025 2:23 AM EDT [facility] Glucose, Whole Blood 279(H) 74 - 99 mg/dL LAB HEMATOLOGY METHOD 07/09/2025 2:23 AM EDT [facility] Ionized Calcium, Whole Blood 4.9 4.6 - 5.1 mg/dL LAB HEMATOLOGY METHOD 07/09/2025 2:23 AM EDT [facility] Lactate, Arterial, Whole Blood 1.2 0.5 - 1.6 mmol/L LAB HEMATOLOGY METHOD 07/09/2025 2:23 AM EDT [facility] Blood Arterial blood specimen / Unknown Arterial Puncture / Unknown 07/09/2025 2:11 AM EDT 07/09/2025 2:21 AM EDT us Luanne Crawford MD LAB BLOOD ORDERABLES Final Result [facility] [address] [place] [address] * (ABNORMAL) POCT glucose meter (07/09/2025 1:22 [...] Comment 07/09/2025 1:24 AM EDT [facility] [employer] ID Cheyanne Briceño 07/09/2025 1:24 AM EDT [facility] Device ID [id number] 07/09/2025 1:24 AM EDT [facility] Specimen Type POC Arterial 07/09/2025 1:24 AM EDT [facility] Blood Arterial blood specimen / Unknown 07/09/2025 1:22 AM EDT 07/09/2025 1:24 AM EDT us Luanne Crawford MD LAB POINT OF CARE TEST DOCKED DEVICE UNSOLICITED RESULTS Final Result Performing Organization Address City/State/[facility] Co de Phone Number [facility] [address] [place] [address] * (ABNORMAL) POCT glucose meter (07/09/2025 12:06 AM EDT) [facility] POCT Glucose 311(H) 74 - 99 [...] Comment 07/09/2025 12:08 AM EDT [facility] [employer] ID Cheyanne Briceño 07/09/2025 12:08 AM EDT [facility] Device ID [id number] 07/09/2025 12:08 AM EDT [facility] Specimen Type POC Arterial 07/09/2025 12:08 AM EDT [facility] Blood Arterial blood specimen / Unknown 07/09/2025 12:06 AM EDT 07/09/2025 12:08 AM EDT us Luanne Crawford MD LAB POINT OF CARE TEST DOCKED DEVICE UNSOLICITED RESULTS Final Result Performing Organization Address City/[facility]/ZIP Co de Phone Number [facility] [address] [place] [address] * APTT (07/08/2025 11:53 PM EDT) aPTT 25 25 - 35 sec LAB COAGULATION METHOD 07/09/2025 12:32 AM EDT [facility] Blood Venous blood specimen / Unknown Venipuncture / Unknown 07/08/2025 11:53 PM EDT 07/08/2025 11:59 PM EDT us Luanne Crawford MD LAB BLOOD ORDERABLES Final Result Performing Organization Address [facility] Co de Phone Number [facility] [address] [place] [address] * (ABNORMAL) Protime-INR (07/08/2025 11:53 PM EDT) Prothrombin Time 15.2(H) 12.0 - 14.3 sec LAB COAGULATION METHOD 07/09/2025 12:32 AM EDT [facility] INR 1.2(H) 0.9 - 1.1 LAB COAGULATION METHOD 07/09/2025 12:32 AM EDT [facility] Blood Venous blood specimen / Unknown Venipuncture / Unknown 07/08/2025 11:53 PM EDT 07/08/2025 11:59 PM EDT Narrative [facility] - 07/09/2025 12:32 AM EDT OPTIMAL INR RANGES FOR PATIENT ON ORAL ANTICOAGULANT THERAPY Prevention of venous thromboembolism INR 2.0 to 3.0 In patients with heart disease: Atrial fibrillation INR 2.0 to 3.0 Valvular heart disease INR 2.0 to 3.0 Tissue heart valves INR 2.0 to 3.0 Mechanical prosthetic valves INR 2.5 to 3.5 Prevention of recurrent MA INR 2.5 to 3.5 us Luanne Crawford MD LAB BLOOD ORDERABLES Final Result Performing Organization Address City/[facility]/ZIP Co de Phone Number [facility] [address] [place] [address] * Phosphorus, Plasma (07/08/2025 11:52 PM EDT) Phosphorus, Plasma 3.6 2.5 - 4.5 mg/dL 07/09/2025 12:27 AM EDT [facility] Blood Venous blood specimen / Unknown Venipuncture / Unknown 07/08/2025 11:52 PM EDT 07/08/2025 11:59 PM EDT Luanne Crawford MD LAB BLOOD ORDERABLES Final Result [facility] [address] [place] [address] * (ABNORMAL) Magnesium, Plasma (07/08/2025 11:52 PM EDT) Magnesium, Plasma 1.8(L) 1.9 - 2.4 mg/dL 07/09/2025 12:27 AM EDT [facility] Blood Venous blood specimen / Unknown Venipuncture / Unknown 07/08/2025 11:52 PM EDT 07/08/2025 11:59 PM EDT Luanne Crawford MD LAB BLOOD ORDERABLES Final Result [facility] [address] [place] [address] * (ABNORMAL) Basic Metabolic Panel, Plasma (07/08/2025 11:52 PM EDT) Glucose, Plasma 314(H) 74 - 99 mg/dL 07/09/2025 12:27 AM EDT [facility] BUN, Plasma 32(H) 7 - 21 mg/dL 07/09/2025 12:27 AM EDT [facility] Creatinine, Plasma 1.80(H) 0.60 - 1.10 mg/dL 07/09/2025 12:27 AM EDT [facility] BUN/Creatinine Ratio 18 07/09/2025 12:27 AM EDT [facility] Sodium, Plasma 136 136 - 145 mmol/L 07/09/2025 12:27 AM EDT [facility] Potassium, Plasma 3.6 3.6 - 4.9 mmol/L 07/09/2025 12:27 AM EDT [facility] Chloride, Plasma 100 97 - 107 mmol/L 07/09/2025 12:27 AM EDT [facility] CO2, Plasma 23 22 - 29 mmol/L 07/09/2025 12:27 AM EDT [facility] Anion Gap 13 6 - 16 mmol/L 07/09/2025 12:27 AM EDT [facility] Total Calcium, Plasma 8.9 8.9 - 10.2 mg/dL 07/09/2025 12:27 AM EDT [facility] eGFRcr 34.2 mL/min/1.7 3m*2 07/09/2025 12:27 AM EDT [facility] Comment:Reported eGFRcr in m L/min/1.73m2 is based the CKD-EPI 2020 equation that does not use a race coefficient. Blood Venous blood specimen / Unknown Venipuncture / Unknown 07/08/2025 11:52 PM EDT 07/08/2025 11:59 PM EDT us Luanne Crawford MD LAB BLOOD ORDERABLES Final Result [facility] [address] [place] [address] * (ABNORMAL) CBC W/O Differential (07/08/2025 11:52 PM EDT) WBC Count 22.50(H) 3.70 - 10.30 10*3/uL LAB HEMATOLOGY METHOD 07/09/2025 12:16 AM EDT [facility] RBC Count 3.60(L) 3.90 - 5.20 10*6/uL LAB HEMATOLOGY METHOD 07/09/2025 12:16 AM EDT [facility] HGB 10.0(L) 11.2 - 15.7 g/dL LAB HEMATOLOGY METHOD 07/09/2025 12:16 AM EDT [facility] HCT 30.8(L) 34.0 - 45.0 % LAB HEMATOLOGY METHOD 07/09/2025 12:16 AM EDT [facility] Platelet Count 273 155 - 369 10*3/uL LAB HEMATOLOGY METHOD 07/09/2025 12:16 AM EDT [facility] MCV 86 79 - 98 fL LAB HEMATOLOGY METHOD 07/09/2025 12:16 AM EDT [facility] MCH 27.8 26.0 - 32.0 pg LAB HEMATOLOGY METHOD 07/09/2025 12:16 AM EDT [facility] MCHC 32.5 30.7 - 35.5 g/dL LAB HEMATOLOGY METHOD 07/09/2025 12:16 AM EDT [facility] RDW 16.9(H) 11.5 - 14.5 % LAB HEMATOLOGY METHOD 07/09/2025 12:16 AM EDT [facility] MPV 10.3 8.8 - 12.5 fL LAB HEMATOLOGY METHOD 07/09/2025 12:16 AM EDT [facility] nRBC 0.0 <=0.0 per 100 WBCs LAB HEMATOLOGY METHOD 07/09/2025 12:16 AM EDT [facility] Blood Venous blood specimen / Unknown Venipuncture / Unknown 07/08/2025 11:52 PM EDT 07/08/2025 11:59 PM EDT Luanne Crawford MD LAB BLOOD ORDERABLES Final Result [facility] [address] [place] [address] * Richie auris Surveillance by PCR (07/08/2025 11:50 PM EDT) Richie auris PCR Result Not Detected Not Detected 07/09/2025 11:26 AM EDT [facility] Swab (Axilla and Groin) Non-blood Collection / Unknown 07/08/2025 11:50 PM EDT 07/09/2025 12:17 AM EDT Narrative [facility] - 07/09/2025 11:26 AM EDT This PCR assay was developed and its performance characteristics determined by [facility] as appropriate for clinical purposes. This assay has not been cleared or approved by the FDA, but is performed in a CLIA regulated laboratory that is qualified to perform high-complexity testing. Luanne Crawford MD LAB MICROBIOLOGY - GENERAL ORDERABLES Final Result Performing Organization Address [facility] Co de Phone Number [facility] [address] [place] [address] * Multi Drug Resistance Test (07/08/2025 11:50 PM EDT) Culture No growth at day 1 07/10/2025 5:45 AM EDT [facility] Swab (Nares and Leann Rectal) Non-blood Collection / Unknown 07/08/2025 11:50 PM EDT 07/09/2025 12:17 AM EDT Narrative [facility] - 07/10/2025 5:45 AM EDT This test was developed and its performance characteristics determined by the [facility]. Although the media is FDA-approved, it is not FDA-approved for all specimen types submitted. The FDA has determined that such clearance or approval is not necessary. This test is used for surveillance purposes. It should not be regarded as investigational or for research. The [facility] is certified under the Clinical Laboratory Improvement Amendments of 1988 (CLIA-88) as qualified to perform high complexity clinical laboratory testing. Luanne Crawford MD LAB MICROBIOLOGY - GENERAL ORDERABLES Final Result Performing Organization Address [facility] de Phone Number [facility] [address] [place] [address] * (ABNORMAL) Blood gas, arterial (07/08/2025 11:50 PM EDT) pH, Arterial 7.27(L) 7.35 - 7.45 LAB HEMATOLOGY METHOD 07/09/2025 12:00 AM EDT [facility] pCO2, Arterial 53(H) 35 - 48 mmHg LAB HEMATOLOGY METHOD 07/09/2025 12:00 AM EDT [facility] pO2, Arterial 114(H) 83 - 108 mmHg LAB HEMATOLOGY METHOD 07/09/2025 12:00 AM EDT [facility] SO2, Measured, Arterial 99(H) 94 - 98 % LAB HEMATOLOGY METHOD 07/09/2025 12:00 AM EDT [facility] Base Excess, Arterial -3.1(L) -2.0 - 3.0 mmol/L LAB HEMATOLOGY METHOD 07/09/2025 12:00 AM EDT [facility] Bicarbonate, Calculated, Arterial 24 22 - 26 mmol/L LAB HEMATOLOGY METHOD 07/09/2025 12:00 AM EDT [facility] Hematocrit, Whole Blood 31.0(L) 34.0 - 45.0 % LAB HEMATOLOGY METHOD 07/09/2025 12:00 AM EDT [facility] Sodium, Whole Blood 134(L) 136 - 145 mmol/L LAB HEMATOLOGY METHOD 07/09/2025 12:00 AM EDT [facility] Potassium, Whole Blood 3.5(L) 3.6 - 4.9 mmol/L LAB HEMATOLOGY METHOD 07/09/2025 12:00 AM EDT [facility] Chloride, Whole Blood 101 97 - 107 mmol/L LAB HEMATOLOGY METHOD 07/09/2025 12:00 AM EDT [facility] Glucose, Whole Blood 315(H) 74 - 99 mg/dL LAB HEMATOLOGY METHOD 07/09/2025 12:00 AM EDT [facility] Ionized Calcium, Whole Blood 5.1 4.6 - 5.1 mg/dL LAB HEMATOLOGY METHOD 07/09/2025 12:00 AM EDT [facility] Lactate, Arterial, Whole Blood 1.7(H) 0.5 - 1.6 mmol/L LAB HEMATOLOGY METHOD 07/09/2025 12:00 AM EDT [facility] Blood Arterial blood specimen / Unknown Arterial Puncture / Unknown 07/08/2025 11:50 PM EDT 07/08/2025 11:59 PM EDT us Richard Betts CRNA LAB BLOOD ORDERABLES Sarah bennett Result [facility] [address] [place] [address] * (ABNORMAL) POCT glucose meter (07/08/2025 11:49 [...] Comment 07/08/2025 11:50 PM EDT [facility] [employer] ID Mary Cotto 07/08/2025 11:50 PM EDT [facility] LAB Device ID [id number] 07/08/2025 11:50 PM EDT [facility] Specimen Type POC Arterial 07/08/2025 11:50 PM EDT [facility] Blood Arterial blood specimen / Unknown 07/08/2025 11:49 PM EDT 07/08/2025 11:50 PM EDT us Luanne Crawford MD LAB POINT OF CARE TEST DOCKED DEVICE UNSOLICITED RESULTS Final Result [facility] [address] [place] [address] * (ABNORMAL) Tissue Culture and Gram Stain (07/08/2025 10:48 PM EDT) Culture Light Growth 07/13/2025 1:13 PM EDT [facility] Culture 1+ Schaalia turicensis (formerly known as Actinomyces turicensis)(A) 07/13/2025 1:13 PM EDT [facility] Comment: The organism value for this result has been updated. These results have been appended to the previously preliminary verified report. This is a corrected result. Previous organism was Gram positive anthony on 07/11/2025 at 1052 EDT. Culture 1+ Staphylococcus hominis(A) 07/13/2025 1:13 PM EDT [facility] Comment: This isolate has been identified using the FDA Approved [employer] CA System The organism value for this result has been updated. These results have been appended to the previously preliminary verified report. Gram Stain Result Few Polymorphonuclear leukocytes(A) 07/13/2025 1:13 PM EDT [facility] Gram Stain Result Numerous Gram negative rods(A) 07/13/2025 1:13 PM EDT [facility] Gram Stain Result Few Gram positive cocci in pairs(A) 07/13/2025 1:13 PM EDT [facility] Tissue Topography unknown / Unknown 07/08/2025 10:48 PM EDT 07/09/2025 12:14 AM EDT Comment:Pre-op diagnosis: Necrotizing fasciitis (CMS/HCC) [M72.6] us Luanne Crawford MD LAB MICROBIOLOGY - GENERAL ORDERABLES Final Result [facility] [address] [place] [address] * Transfuse fresh frozen plasma (07/08/2025 10:35 PM EDT) Richard Betts CRNA BLOOD TRANSFUSION ORDERAB LES Final Result * Transfuse RBC (07/08/2025 10:29 PM EDT) Richard Betts INFORMATION SYSTEMS SPECIALIST BLOOD TRANSFUSION ORDERAB LES Final Result * (ABNORMAL) Blood gas panel, arterial (07/08/2025 10:08 PM EDT) pH, Arterial 7.28(L) 7.35 - 7.45 LAB HEMATOLOGY METHOD 07/08/2025 10:15 PM EDT [facility] pCO2, Arterial 50(H) 35 - 48 mmHg LAB HEMATOLOGY METHOD 07/08/2025 10:15 PM EDT [facility] pO2, Arterial 121(H) 83 - 108 mmHg LAB HEMATOLOGY METHOD 07/08/2025 10:15 PM EDT [facility] SO2, Measured, Arterial 99(H) 94 - 98 % LAB HEMATOLOGY METHOD 07/08/2025 10:15 PM EDT [facility] Base Excess, Arterial -3.6(L) -2.0 - 3.0 mmol/L LAB HEMATOLOGY METHOD 07/08/2025 10:15 PM EDT [facility] Bicarbonate, Calculated, Arterial 23 22 - 26 mmol/L LAB HEMATOLOGY METHOD 07/08/2025 10:15 PM EDT [facility] Hematocrit, Whole Blood 29.9(L) 34.0 - 45.0 % LAB HEMATOLOGY METHOD 07/08/2025 10:15 PM EDT [facility] Sodium, Whole Blood 133(L) 136 - 145 mmol/L LAB HEMATOLOGY METHOD 07/08/2025 10:15 PM EDT [facility] Potassium, Whole Blood 3.5(L) 3.6 - 4.9 mmol/L LAB HEMATOLOGY METHOD 07/08/2025 10:15 PM EDT [facility] Chloride, Whole Blood 101 97 - 107 mmol/L LAB HEMATOLOGY METHOD 07/08/2025 10:15 PM EDT [facility] Glucose, Whole Blood 351(H) 74 - 99 mg/dL LAB HEMATOLOGY METHOD 07/08/2025 10:15 PM EDT [facility] Ionized Calcium, Whole Blood 4.5(L) 4.6 - 5.1 mg/dL LAB HEMATOLOGY METHOD 07/08/2025 10:15 PM EDT [facility] Lactate, Arterial, Whole Blood 2.1(H) 0.5 - 1.6 mmol/L LAB HEMATOLOGY METHOD 07/08/2025 10:15 PM EDT [facility] Blood Arterial blood specimen / Unknown 07/08/2025 10:08 PM EDT 07/08/2025 10:14 PM EDT Comment:Pre-op diagnosis: Necrotizing fasciitis (CMS/HCC) [M72.6] us Luanne Crawford MD LAB BLOOD ORDERABLES Final Result Performing Organization Address City/State/[facility] Co de Phone Number [facility] [address] [place] [address] * Surgical Pathology Exam (07/08/2025 10:07 PM EDT) Case Report Surgical Pathology Case: [id number] Authorizing Provider: Luanne Crawford MD Collected: 07/08/20252 Ordering Location: [facility] Received: 07/09/2025 5860 Pathologist: Boaz Fernandez MD Specimens: A) - Other (specify site), saphenous vein B) - Other (specify site), right leg 07/10/2025 3:45 PM EDT [facility] Final Diagnosis A. SAPHENOUS VEIN SEGMENT, REMOVAL: - SCLEROTIC VEIN WITH ADVENTITIAL INFLAMMATION. B. RIGHT LEG TISSUE DEBRIDEMENT: - ACUTE NECROTIZING FASCIITIS OF SKIN AND SOFT TISSUE. 07/10/2025 3:45 PM EDT [facility] at 1545 EDT Clinical Information Necrotizing fasciitis; post recent boil self popped wound. 50 y.o. female with PMH of DM, hidradenitis supparativa, current smoker (1.5 ppd), UTI, depression, anxiety, asthma, HLD, Celiac disease, 07/10/2025 3:45 PM EDT [facility] Gross Description A. SAPHENOUS VEIN Specimen is received fresh and placed in formalin labeled saphenous vein. Received is a segment of vessel that measures 8.5 cm in length and up to 0.7 cm in diameter. Specimen is sectioned to reveal a pinpoint lumen with dried blood. Cardiac Catheterization Technologist sections are taken and submitted in cassette A1. Cold Time: 8h 56m Abhishek Baptiste MD B. RIGHT LEG Specimen is received fresh labeled right leg. Received are numerous fragments of skin and underlying soft tissue that measure in aggregate 25.0 x 25.0 x 7.5 cm. Scattered areas of skin and soft tissue notable for being green-black, foul-smelling and extensively necrotic. Cardiac Catheterization Technologist sections are taken and submitted in cassettes B1-B2. Abhishek Baptiste MD 07/10/2025 3:45 PM EDT [facility] Note: A resident was involved in the service. I attest I examined the relevant preparations for the specimens and confirmed the diagnosis or interpretation. 07/10/2025 3:45 PM EDT [facility] Tissue Topography unknown / Unknown 07/08/2025 10:07 PM EDT 07/09/2025 7:40 AM EDT Comment:Pre-op diagnosis: Necrotizing fasciitis (CMS/HCC) [M72.6] Tissue specimen (specimen) Topography unknown / Unknown 07/08/2025 10:49 PM EDT 07/09/2025 7:40 AM EDT Comment:Pre-op diagnosis: Necrotizing fasciitis (CMS/HCC) [M72.6] us Luanne Crawford MD LAB PATHOLOGY ORDERABLES F inal Result [facility] [address] [place] [address] * Transfuse fresh frozen plasma (07/08/2025 10:04 PM EDT) us Richard N Yongbang INFORMATION SYSTEMS SPECIALIST BLOOD TRANSFUSION ORDERAB LES Final Result * Transfuse fresh frozen plasma: 1 Units (07/08/2025 10:04 PM EDT) us Richard N Yongbang INFORMATION SYSTEMS SPECIALIST BLOOD TRANSFUSION ORDERAB LES Final Result * Transfuse RBC (07/08/2025 9:41 PM EDT) us Richard N Yongbang INFORMATION SYSTEMS SPECIALIST BLOOD TRANSFUSION ORDERAB LES Final Result * Transfuse RBC: 1 Units (07/08/2025 9:41 PM EDT) us Richard N Yongbang INFORMATION SYSTEMS SPECIALIST BLOOD TRANSFUSION ORDERAB LES Final Result * Prepare Fresh Frozen Plasma: 2 Units (07/08/2025 9:24 PM EDT) Product Code [id number] CH BLOO D BANK Dispense Status Transfused BLOOD BANK Blood Expiration Date [id number] BLOOD BANK Unit Number [id number] B LOOD BANK Product Blood Type 5100 BLOOD BANK Blood Type O+ BLOOD BANK Product Code [id number] CH BLOO D BANK Dispense Status Transfused BLOOD BANK Blood Expiration Date [id number] BLOOD BANK Unit Number [id number] CH B LOOD BANK Product Blood Type 5100 BLOOD BANK Blood Type O+ BLOOD BANK Blood Venous blood specimen / Unknown us Richard N Yongbang INFORMATION SYSTEMS SPECIALIST BLOOD BANK PRODUCT ORDERA BLES Final Result [facility] BANK [address] [place] [address], [place] * Prepare Leukocyte Reduced RBC: 2 Units (07/08/2025 9:23 PM EDT) Product Code [id number] BLOO D BANK Dispense Status Transfused CH BLOOD BANK Blood Expiration Date BLOOD BANK Unit Number [id number] CH B LOOD BANK Product Blood Type 5100 CH BLOOD BANK Blood Type O+ CH BLOOD BANK Crossmatch Compatible CH BLOOD BANK Product Code [id number] CH BLOO D BANK Dispense Status Transfused CH BLOOD BANK Blood Expiration Date BLOOD BANK Unit Number [id number] CH B LOOD BANK Product Blood Type 5100 CH BLOOD BANK Blood Type O+ CH BLOOD BANK Crossmatch Compatible BLOOD BANK Other us Richard Betts CRNA BLOOD BANK PRODUCT ORDERA BLES Final Result BLOOD BANK [address] [place] [address], * (ABNORMAL) Abscess Culture and Gram Stain (07/08/2025 9:06 PM EDT) Culture Light Growth 07/13/2025 1:13 PM EDT [facility] Culture 1+ Mixed skin silvestre(A) 07/13/2025 1:13 PM EDT [facility] Comment: The organism value for [...] as Actinomyces turicensis)(A) 07/13/2025 1:13 PM EDT [facility] Comment: This result was determined by [employer]DI tof Mass spectrometry. This assay was developed and its performance characteristics determined by [facility] as appropriate for clinical purposes. [...] Gram positive cocci(A) 07/13/2025 1:13 PM EDT [facility] Gram Stain Result Few Gram variable rods(A) 07/13/2025 1:13 PM EDT [facility] Gram Stain Result Moderate Gram positive rods(A) 07/13/2025 1:13 PM EDT [facility] Gram Stain Result Numerous Gram negative rods(A) 07/13/2025 1:13 PM EDT [facility] Gram Stain Result Numerous Gram negative coccobacilli(A) 07/13/2025 1:13 PM EDT [facility] Gram Stain Result Moderate Polymorphonuclear leukocytes(A) 07/13/2025 1:13 PM EDT [facility] Swab Topography unknown / Unknown 07/08/2025 9:06 PM EDT 07/08/2025 9:15 PM EDT Comment:Pre-op diagnosis: Necrotizing fasciitis (CMS/HCC) [M72.6] us Luanne Crawford MD LAB MICROBIOLOGY - GENERAL ORDERABLES Final Result Performing Organization Address City/State/[facility] Co de Phone Number [facility] [address] [place] [address] * (ABNORMAL) POCT arterial blood gas gem (07/08/2025 8:51 PM EDT) pH, Arterial 7.28(L) 7.35 - 7.45 07/08/2025 8:53 PM EDT [facility] pCO2, Arterial 53(H) 35 - 48 mm Hg 07/08/2025 8:53 PM EDT [facility] pO2, Arterial 152(H) 83 - 108 mm Hg 07/08/2025 8:53 PM EDT [facility] SO2, Arterial 99(H) 94 - 98 % 07/08/2025 8:53 PM EDT [facility] Base Excess, Arterial -2.3(L) -2 - 3 mmol/L 07/08/2025 8:53 PM EDT [facility] HCO3, Arterial 24.9 22 - 26 mmol/L 07/08/2025 8:53 PM EDT [facility] Total Hemoglobin, Arterial, Whole Blood 10.9(L) 11.2 - 15.7 g/dL 07/08/2025 8:53 PM EDT [facility] Hematocrit, Arterial 33.0(L) 34.0 - 45.0 % 07/08/2025 8:53 PM EDT [facility] Sodium, Arterial 131(L) 136 - 145 mmol/L 07/08/2025 8:53 PM EDT [facility] Potassium, Arterial 3.8 3.6 - 4.9 mmol/L 07/08/2025 8:53 PM EDT [facility] Chloride, Whole Blood 98 97 - 107 mmol/L 07/08/2025 8:53 PM EDT [facility] Glucose, Arterial 418(H) 74 - 99 mg/dL 07/08/2025 8:53 PM EDT [facility] Ionized Calcium, Arterial 4.9 4.6 - 5.1 mg/dL 07/08/2025 8:53 PM EDT [facility] Lactate, Arterial 1.6 0.5 - 1.6 mmol/L 07/08/2025 8:53 PM EDT [facility] Body Temperature 37.0 Celsius 07/08/2025 8:53 PM EDT [facility] pH, Temp Corrected, Arterial 7.28(L) 7.35 - 7.45 07/08/2025 8:53 PM EDT [facility] pCO2, Temp Corrected, Arterial 53(H) 35 - 48 mm Hg 07/08/2025 8:53 PM EDT [facility] pO2, Temp Corrected, Arterial 152(H) 83 - 108 mm Hg 07/08/2025 8:53 PM EDT [facility] [employer] Yadi Uriarte 07/08/2025 8:53 PM EDT [facility] Blood, Arterial Whole blood specimen / Unknown 07/08/2025 8:51 PM EDT 07/08/2025 8:53 PM EDT us Luanne Crawford MD LAB POINT OF CARE TEST DOCKED DEVICE UNSOLICITED RESULTS Final Result [facility] [address] [place] [address] * ED HIV 1/2 Antibody/Antigen Screen w/Reflex to HIV 1/2 Differentiation (07/08/2025 6:14 PM EDT) HIV 1 & 2 Antibody/Antigen Screen Non Reactive Non Reactive 07/08/2025 7:12 PM EDT [facility] Comment:Screening for HIV 1 & 2 antibodies, and P24 antigen is NONREACTIVE. No confirmatory testing is required. Blood Venous blood specimen / Unknown Venipuncture / Unknown 07/08/2025 6:14 PM EDT 07/08/2025 6:30 PM EDT My Charles MD LAB BLOOD ORDERABLES Fi nal Result Performing Organization Address City/[facility] Co de Phone Number [facility] [address] [place] [address] * Hepatitis C Antibody - ED (07/08/2025 6:14 PM EDT) [facility] Hepatitis C Antibody Negative Negative 07/08/2025 7:12 PM EDT [facility] Blood Venous blood specimen / Unknown Venipuncture / Unknown 07/08/2025 6:14 PM EDT 07/08/2025 6:30 PM EDT My Charles MD LAB BLOOD ORDERABLES Fi nal Result Performing Organization Address [facility] Co de Phone Number [facility] [address] [place] [address] * (ABNORMAL) C-Reactive protein (07/08/2025 6:14 PM EDT) [facility] CRP, Plasma 462.2(H) <=8.0 mg/L 07/08/2025 7:18 PM EDT [facility] Blood Venous blood specimen / Unknown Venipuncture / Unknown 07/08/2025 6:14 PM EDT 07/08/2025 6:23 PM EDT Narrative [facility] - 07/08/2025 7:18 PM EDT This CRP test is appropriate for assessment of infection, systemic inflammation and/or tissue injury. To assess cardiovascular disease risk order high sensitivity CRP (CRPH). My Charles MD LAB BLOOD ORDERABLES Fi nal Result Performing Organization Address City/[facility]/ZIP Co de Phone Number [facility] [address] [place] [address] * (ABNORMAL) Lactic acid, venous (07/08/2025 6:14 PM EDT) Pathologist [facility] Lactate, Venous, Whole Blood 2.6(H) 0.5 - 2.2 mmol/L LAB HEMATOLOGY METHOD 07/08/2025 6:29 PM EDT [facility] Blood Venous blood specimen / Unknown Venipuncture / Unknown 07/08/2025 6:14 PM EDT 07/08/2025 6:23 PM EDT My Charles MD LAB BLOOD ORDERABLES Fi nal Result Performing Organization Address City/[facility]/ZIP Co de Phone Number [facility] [address] [place] [address] * Type and screen (07/08/2025 6:14 PM EDT) Pathologist [facility] ABO/Rh O Positive 07/08/2025 6:10 PM EDT [facility] Antibody Screen Negative 07/08/2025 6:10 PM EDT [facility] Specimen Expiration 07/11/2025 23:59 07/08/2025 6:10 PM EDT [facility] Blood Venous blood specimen / Unknown Venipuncture / Unknown 07/08/2025 6:14 PM EDT 07/08/2025 6:18 PM EDT My Charles MD LAB BLOOD BANK TEST ORD ERABLES Final Result Performing Organization Address City/[facility]/ZIP Co de Phone Number [facility] [address] [place] [address], [place] * (ABNORMAL) PT-INR (07/08/2025 6:14 PM EDT) Prothrombin Time 15.3(H) 12.0 - 14.3 sec 07/08/2025 6:56 PM EDT [facility] INR 1.2(H) 0.9 - 1.1 07/08/2025 6:56 PM EDT [facility] Blood Venous blood specimen / Unknown Venipuncture / Unknown 07/08/2025 6:14 PM EDT 07/08/2025 6:23 PM EDT Narrative [facility] - 07/08/2025 6:56 PM EDT OPTIMAL INR RANGES FOR PATIENT ON ORAL ANTICOAGULANT THERAPY Prevention of venous thromboembolism INR 2.0 to 3.0 In patients with heart disease: Atrial fibrillation INR 2.0 to 3.0 Valvular heart disease INR 2.0 to 3.0 Tissue heart valves INR 2.0 to 3.0 Mechanical prosthetic valves INR 2.5 to 3.5 Prevention of recurrent MA INR 2.5 to 3.5 us My Charles MD LAB BLOOD ORDERABLES Fi nal Result [facility] [address] [place] [address] * (ABNORMAL) CBC w/diff (07/08/2025 6:14 PM EDT) WBC Count 26.15(H) 3.70 - 10.30 10*3/uL LAB HEMATOLOGY METHOD 07/08/2025 9:04 PM EDT [facility] RBC Count 3.97 3.90 - 5.20 10*6/uL LAB HEMATOLOGY METHOD 07/08/2025 9:04 PM EDT [facility] HGB 10.9(L) 11.2 - 15.7 g/dL LAB HEMATOLOGY METHOD 07/08/2025 9:04 PM EDT [facility] HCT 33.6(L) 34.0 - 45.0 % LAB HEMATOLOGY METHOD 07/08/2025 9:04 PM EDT [facility] Platelet Count 329 155 - 369 10*3/uL LAB HEMATOLOGY METHOD 07/08/2025 9:04 PM EDT [facility] MCV 85 79 - 98 fL LAB HEMATOLOGY METHOD 07/08/2025 9:04 PM EDT [facility] MCH 27.5 26.0 - 32.0 pg LAB HEMATOLOGY METHOD 07/08/2025 9:04 PM EDT [facility] MCHC 32.4 30.7 - 35.5 g/dL LAB HEMATOLOGY METHOD 07/08/2025 9:04 PM EDT [facility] RDW 17.3(H) 11.5 - 14.5 % LAB HEMATOLOGY METHOD 07/08/2025 9:04 PM EDT [facility] MPV 10.1 8.8 - 12.5 fL LAB HEMATOLOGY METHOD 07/08/2025 9:04 PM EDT [facility] nRBC 0.0 <=0.0 per 100 WBCs LAB HEMATOLOGY METHOD 07/08/2025 9:04 PM EDT [facility] Differential Type Automated LAB HEMATOLOGY METHOD 07/08/2025 9:04 PM EDT [facility] Neutrophils % 91 % LAB HEMATOLOGY METHOD 07/08/2025 9:04 PM EDT [facility] Lymphocytes % 4 % LAB HEMATOLOGY METHOD 07/08/2025 9:04 PM EDT [facility] Monocytes % 4 % LAB HEMATOLOGY METHOD 07/08/2025 9:04 PM EDT [facility] Eosinophils % 0 % LAB HEMATOLOGY METHOD 07/08/2025 9:04 PM EDT [facility] Basophils % 0 % LAB HEMATOLOGY METHOD 07/08/2025 9:04 PM EDT [facility] Immature Granulocytes % 1 % LAB HEMATOLOGY METHOD 07/08/2025 9:04 PM EDT [facility] Neutrophils Absolute 23.61(H) 1.60 - 6.10 10*3/uL LAB HEMATOLOGY METHOD 07/08/2025 9:04 PM EDT [facility] Lymphocytes Absolute 1.15(L) 1.20 - 3.90 10*3/uL LAB HEMATOLOGY METHOD 07/08/2025 9:04 PM EDT [facility] Monocytes Absolute 0.98(H) 0.30 - 0.90 10*3/uL LAB HEMATOLOGY METHOD 07/08/2025 9:04 PM EDT [facility] Eosinophils Absolute 0.04 0.00 - 0.50 10*3/uL LAB HEMATOLOGY METHOD 07/08/2025 9:04 PM EDT [facility] Basophils Absolute 0.09 0.00 - 0.10 10*3/uL LAB HEMATOLOGY METHOD 07/08/2025 9:04 PM EDT [facility] Immature Granulocytes Absolute 0.25(H) 0.00 - 0.06 10*3/uL LAB HEMATOLOGY METHOD 07/08/2025 9:04 PM EDT [facility] Blood Venous blood specimen / Unknown Venipuncture / Unknown 07/08/2025 6:14 PM EDT 07/08/2025 6:23 PM EDT Narrative [facility] - 07/08/2025 9:04 PM EDT Therapeutic decision making should be based on absolute values, rather than percentages. us My Charles MD LAB BLOOD ORDERABLES Fi nal Result [facility] [address] [place] [address] * (ABNORMAL) CMP (07/08/2025 6:14 PM EDT) Glucose, Plasma 411(H) 74 - 99 mg/dL 07/08/2025 7:18 PM EDT [facility] BUN, Plasma 33(H) 7 - 21 mg/dL 07/08/2025 7:18 PM EDT [facility] Creatinine, Plasma 1.99(H) 0.60 - 1.10 mg/dL 07/08/2025 7:18 PM EDT [facility] BUN/Creatinine Ratio 17 07/08/2025 7:18 PM EDT [facility] Sodium, Plasma 131(L) 136 - 145 mmol/L 07/08/2025 7:18 PM EDT [facility] Potassium, Plasma 4.0 3.6 - 4.9 mmol/L 07/08/2025 7:18 PM EDT [facility] Chloride, Plasma 93(L) 97 - 107 mmol/L 07/08/2025 7:18 PM EDT [facility] CO2, Plasma 22 22 - 29 mmol/L 07/08/2025 7:18 PM EDT [facility] Anion Gap 16 6 - 16 mmol/L 07/08/2025 7:18 PM EDT [facility] Total Calcium, Plasma 9.3 8.9 - 10.2 mg/dL 07/08/2025 7:18 PM EDT [facility] Total Protein 6.0(L) 6.3 - 7.9 g/dL 07/08/2025 7:18 PM EDT [facility] Albumin, Plasma 2.6(L) 3.5 - 5.2 g/dL 07/08/2025 7:18 PM EDT [facility] AST, Plasma 16 10 - 35 U/L 07/08/2025 7:18 PM EDT [facility] ALT, Plasma 15 10 - 35 U/L 07/08/2025 7:18 PM EDT [facility] Alkaline Phosphatase, Plasma 165(H) 35 - 104 U/L 07/08/2025 7:18 PM EDT [facility] Total Bilirubin, Plasma 0.4 0.2 - 1.1 mg/dL 07/08/2025 7:18 PM EDT [facility] eGFRcr 30.3 mL/min/1.7 3m*2 07/08/2025 7:18 PM EDT [facility] Comment:Reported eGFRcr in m L/min/1.73m2 is based the CKD-EPI 2020 equation that does not use a race coefficient. Blood Venous blood specimen / Unknown Venipuncture / Unknown 07/08/2025 6:14 PM EDT 07/08/2025 6:23 PM EDT us My Charles MD LAB BLOOD ORDERABLES Fi nal Result [facility] [address] [place] [address] * DE CRITICAL CARE, E/M 30-74 MINUTES (07/08/2025 5:58 [...] respiratory failure Septic shock (CMS/HCC) Absence seizure ([facility]/HCC) 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 epilepsy Chronic obstructive pulmonary disease, unspecified HTN (hypertension), benign Essential hypertension, benign Depression Depressive disorder, not elsewhere classified Morbid (severe) obesity due to excess calories (CMS/HCC) Urge incontinence Necrotizing fasciitis ([facility]/HCC) Necrotizing fasciitis documented in this encounter [...] Inessa Almazan RN)1230 (Given - Provider: Junior Tanya Santos) busPIRone (Buspar) tablet 15 mg 15 mg, Oral, 2 times daily, First dose (after last modification) on Tue07/16/25 at 1115, Until Discontinued, Routine 1001 (Given - Provider: Josi Ann RN)2018 (Given - Provider: Inessa Almazan RN) 0852 (Given - Provider: Josi Ann RN)2113 (Given - Provider: Inessa Almazan RN) 0839 (Given - Provider: Junior Tanya Santos) DULoxetine (Cymbalta) DR capsule 60 mg 60 mg, Oral, Daily, First dose on Tue07/12/25 at 0900, Until Discontinued, Routine 1001 (Given - Provider: Josi Ann RN) 0852 (Given - Provider: Josi Ann RN) 0839 (Given - Provider: Junior Tanya Santos) enoxaparin (Lovenox) syringe 40 mg 40 mg, Subcutaneous, 2 times daily, First dose on Tue07/10/25 at 1800, Until Discontinued, Routine 1001 (Given - Provider: Josi Ann RN)2018 (Given - Provider: Inessa Almazan RN) 0851 (Given - Provider: Josi Ann RN)2114 (Given - Provider: Inessa Almazan RN) 0839 (Given - Provider: Junior Tanya Santos) HYDROmorphone (Dilaudid) injection 0.25 mg (COMPLETED) [...] Discontinued, Routine 0301 (Not Given - Provider: uElalia Estrada RN - Reason: Order parameters not [...] Almazan RN) 0840 (Given - Provider: Junior Tanya Santos) metoprolol succinate XL (Toprol-XL) 24 hr [...] wv in place due to [facility] dc) polyethylene glycol (Miralax) packet 17 [...] Inessa Almazan RN)0715 (Given - Provider: Junior Tanya Santos) oxyCODONE (Roxicodone) immediate release tablet 5 [...] Almazan RN)0715 (See Alternative - Provider: Junior Tanya Santos) Linked Groups Order Group 1: glucose [...] Intramuscular, Every 15 min PRN, Starting on 07/08/25 at 2053, Until Tue07/19/25 at 1456, Routine, [...] documented as of this encounter Care Teams Pediatric Nurse Practitioner Relationship Specialty Start Date End Date Yenny Dhillon APRN [address] [place] [address] PCP - General 07/22/23 documented as of this encounter
--- OUTSIDE RECORDS SUMMARY | 2025-07-10 15:16 | XMS_ITS | Encounter Summary ---
Author Organization Healthcare Address [address] [place] [address] Care Team Providers Care Stitch Bonding Machine Operator Name Role Phone Yenny Dhillon APRN Primary Care Provider [phone] Reason for Visit * Auth/Cert (Routine) Specialty Diagnoses / Procedures Referred By Bharati t Referred To Contact Diagnoses Necrotizing fasciitis (CMS/HCC) Necrotizing Fascitis Brittany Crawford MD [address] [facility] [address] [place] [address] Phone: tel: fax: PAV A Inpatient [address] [place] [address] Phone: tel: Referral ID Status Reason Start Date Expiration Date Visits Re quested Visits Authorized [id number] 1 1 Encounter Details Date Type Department Care Team (Late st Contact Info) Description 07/10/2025 3:16 PM EDT Anesthesia Event [facility] OPERATING ROOM [address] [place] [address] Jason Douglas DO [address] [place] [address] Lisa Allen MD [address] [place], [place] [id number] Anesthesia Record Procedure Summary Procedure Name Responsible [...] 0800 Procedure: DEBRIDEMENT, WOUND groin (Right) Location: [facility] / [place] Surgeons: Dorcas [...] 07/10/2025 ABG Lab Results Component Value Date [id number] 26 07/09/2025 LACTATE 0.9 07/09/2025 Lab Results Component Value Date PH 7.31 (L) 07/09/2025 PCO2 53 (H) 07/09/2025 PO2 153 (H) 07/09/2025 [id number] 100 (H) 07/09/2025 BASEEXC -0.4 07/09/2025 HCTSYR 30.6 (L) 07/09/2025 KSYR 3.4 (L) 07/09/2025 CLSYR 107 07/09/2025 GLUSYR 141 (H) 07/09/2025 CAION 4.9 07/09/2025 LACTATE 0.9 07/09/2025 EKG Encounter Date: 07/08/25 ECG Adult Result Value EKG DIAGNOSIS CLASS Abnormal Ventricular Rate 79 Atrial Rate 79 [place] Interval 188 QRSD Interval 90 QT Interval 354 QTC Interval 405 P [place] 44 R [place] 17 T Wave [place] 27 Diagnosis Sinus rhythm with frequent premature [...] Plan ASA 4 Plan was reviewed with: FEEDER DRIVER Anesthesia technique(s) discussed with the patient/family: general Anesthesia plan agreed upon was: general Anesthetic plan and risks discussed with healthcare power of claims attorney. Use of blood products discussed with healthcare power of claims attorney who consented to blood products. ROS [...] mean [2] acetaminophen, 1,000 mg, Nasogastric, q6h AMRIBELL cefepime, 2 g, Intravenous, q8h DULoxetine, 60 [...] [facility] [address], [address] [place] [address] Lilliana Morfin APRN [address] [place] [address] documented as of this encounter [...] documented as of this encounter Care Teams Stitch Bonding Machine Operator Relationship Specialty Start Date End Date Yenny Dhillon APRN [address] [place] [address] PCP - General 07/22/23 documented as of this encounter
--- OUTSIDE RECORDS SUMMARY | 2025-07-11 13:50 | XMS_ITS | Encounter Summary ---
Author Organization Healthcare Address [address] [place] [address] Care Team Providers Care Bag Machine Tender Name Role Phone Alejo Yenny Lit CASTRO Primary Care Provider [phone] Reason for Visit * Reason Comments Wound Check * Auth/Cert (Routine) Specialty Diagnoses / Procedures Referred By Bharati wiggins Referred To Contact Diagnoses Necrotizing fasciitis ([facility]/HCC) Necrotizing Fascitis Luanne Crawford MD [address] [address] Phone: tel: fax: PAV A Inpatient [address] [place] [address] Phone: tel: Referral ID Status Reason Start Date Expiration Date Visits Re quested Visits Authorized [id number] 1 1 Encounter Details Date Type Department Care Team (Late st Contact Info) Description 07/11/2025 1:50 PM EDT - 07/11/2025 3:20 PM EDT Surgery P[facility] A OPERATING ROOM [address] [place] [address] Dorcas Hennessy MD [address] [address] APPLICATION OR REPLACEMENT, WOUND VAC [...] dressing in place, sutures removed on rounds. [facility] can re- apply negative pressurewound [...] please call our General Surgery Clinic at [phone]. If there are questions or concerns after discharge from the hospital, call Radha Ugalde, Nurse Coordinator between 7am-3pm at [phone]. If it is after hours, weekends, and holidays please call [phone] and ask for the resident educational administration teacher for Emergency General Surgery. Medication requests should be made between the hours of 9:00 AM to 3:00 PM Tuesday thru Tuesday. Please note that based upon recent changes to [place] law related to prescribing opioid pain medications, [...] Outcome: Met Intervention: Promote Activity and Functional [place] Flowsheets Taken 07/18/20252319 by Inessa Almazan, NAHID [...] Pain Flowsheets Taken 07/19/20253 by Inessa Almazan, trousseau consultant Interventions: medication (see MAR) Taken 07/18/2025 [address] [...] Note Cristina Brown 50 y.o. female CSN: [id number] Admission: 07/08/2025 5:58 PM Primary Problem: Necrotizing fasciitis (CMS/HCC) Primary E M Assembler: Primary Caregiver: Self Assistance Available at Discharge: [...] Community Agency(s): Patient's Choice of Community Agency(s): [facility] Patient/Family Anticipated Services at Transition: Patient/Family Anticipated Services at Transition: rehabilitation services DME/Equipment Needed after Discharge: Equipment Currently Used at Home: none Equipment Needed After Discharge: walker, rollator Readmission Within the Last 30 Days: Readmission Within the Last 30 Days: unable to assess Medicare Documentation: N/A Follow-up: Keaton Patel MD [address] [facility] [address] [place] [address] [facility] ([facility]) [address] [phone] Go on 07/19/2025 Discharge Transportation: Transportation Anticipated: [...] arranged for this date at 1400 from [facility]. Annie Littlejohn * Gauri Rico - Raj Cardona RN - 07/19/2025 9:44 AM EDT Images from the original note were not included. 1087 Oxycodone Oral Tablet, Immediate Release Brand Names: Oxaydo, Roxicodone What is this medicine? Oxycodone (xt-z-WVF-done) is an opioid pain reliever. It is used to treat moderate to severe pain. What should I tell my health care provider before I take this medicine? They need to know if you have any of these conditions: ? [place]'s disease ? Brain tumor or head injury [...] special medication guide each time you picker packer this medicine. ? Overdosage: Taking too much [...] to your doctor or health director of critical care as soon as possible: ? allergic [...] to your doctor or health director of critical care if they continue or are bothersome): ? constipation ? dry mouth ? itching ? nausea, vomiting ? upset stomach This list may not describe all possible side effects. Call your doctor for medical advice about side effects. You may report side effects to FDA at 4-222-PGG-3637. Where should I keep my medicine? This [...] location. To find a disposal location, visit Splinter.me/[facility]/[place]. If you cannot take unused medicine to [...] from the original note were not included. [id number] Naloxone Nasal [place] WHY is this medicine prescribed? Prescription and [...] pharmacist for the instructions or visit the parts counterperson's website to get the instructions. You should [...] or doctor for a copy of the parts counterperson's information for the patient. Are there OTHER [...] and out of their sight and reach. https://www.upandBioscanR[employer].org Dispose of unneeded medications in a way [...] of all of the prescription and nonprescription (gxgx-ypi-wevwmaf) medicines, vitamins, minerals, and dietary supplements you [...] or pharmacist about specific clinical use. The [place] [employer] represents that the information provided hereunder was formulated with a reasonable standard of care, and in conformity with professional standards in the field. The [place] [employer]. makes no representations or warranties, express or implied, including, but not limited to, any implied warranty of merchantability and/or fitness for a particular purpose, with respect to such information and specifically disclaims all such warranties. Users are advised that decisions regarding drug therapy are complex medical decisions requiring the independent, informed decision of an appropriate health director of critical care, and the information is provided for informational purposes only. The entire monograph for a drug should be reviewed for a thorough understanding of the drug's actions, uses and side effects. The [place] [employer] does not endorse or recommend the use of any drug.The information is not a substitute for medical care. AHFS?? Patient Medication Information?. ?? Copyright, 2023. The [place] [employer]-System Pharmacists??, [address], [address], [place], [place]. All Rights Reserved. Duplication for commercial use must be authorized by [facility]. Selected Revisions: May 26, 2024. AHFS?? Patient Medication Information?. ?? Copyright, 2024 * [facility] - Raj Cardona RN - 07/19/2025 [...] controlled substances: ? Drug Enforcement Agency (HARIS): http://www.deadiversion.SqrrloCodeEval.gov/drug_disposal/takeback/index.htm ? National Association of Drug Diversion Investigators (NADDI): http://rxdrugdropbox.org/ ? [place] Office of Drug Control Policy: http://odcp.ga.gov/Prescription+Drug+Drop+Box+Sites.htm Are there concerns about or ? ? [...] look blue or purple What is a [facility] report? DANYELLE is a system that tracks prescriptions of controlled substances in [place]. The DANYELLE report tells your doctor if you have been prescribed controlled substances in the past. Doctors must get a DANYELLE report before prescribing controlled substances. What can I do if the information in my DANYELLE report is wrong? You or your doctor may contact the dispenser who reported the information to [facility]. If the dispenser agrees that the information should be changed, he or she can fix the DANYELLE report. However, the dispenser may certify that the report is correct. If that is the case, you or your doctor may then call the [place] Drug Enforcement and Professional Practices Branch at .This will start an investigation of the error. * Jodycynthia [facility] - Raj Cardona RN - 07/19/2025 9:44 AM EDT Images from the original note were not included. [address]13 Insulin: How to Use and Where to [...] ?needles? or ?sharps.? ? Call your local [employer] company to ask about removing the sharps container. You can also check withthe Coalition for Safe Community Needle Disposal at www.safeneedledisposal.org or 463-652-4476. Storing your insulin ? Keep unopened insulin [...] cold. Last Reviewed Date: 2023 00:00:00 ?? 1305-0477 [employer]. All rights reserved. This information is not intended as a substitute for professional medical care. Always follow your healthcare professional's instructions. * Gauri Rico - Raj Cardona RN - 07/19/2025 9:43 AM EDT Images from the original note were not included. [id number] Diet: Diabetes Food is an important tool [...] of Nutrition and Dietetics at www.eatright.org o [place] Diabetes Association at www.diabetes.org or 650-662-9110 o Association of Diabetes Care and Education Specialists at www.diabeteseducator.org/ Last Reviewed Date: 2024 00:00:00 ?? 7955-9398 [employer]. All rights reserved. This information is not intended as a substitute for professional medical care. Always follow your healthcare professional's instructions. * Gauri [facility] - Raj Cardona RN - 07/19/2025 9:43 AM EDT Images from the original note were not included. 33322 Diabetes: Understanding Carbohydrates, Fats, and Protein Food [...] foods. Last Reviewed Date: 2024 00:00:00 ?? 1417-6797 [employer]. All rights reserved. This information is not intended as a substitute for professional medical care. Always follow your healthcare professional's instructions. * Gauri LouieJANETH - Raj Cardona RN - 07/19/2025 9:43 AM EDT Images from the original note were not included. 93428 Discharge Instructions: Packing a Wound You have [...] chills. Last Reviewed Date: 2025 00:00:00 ?? 0626-4727 [employer]. All rights reserved. This information is not intended as a substitute for professional medical care. Always follow your healthcare professional's instructions. * Gauri Rico - Raj Cardona RN - 07/19/2025 9:43 AM EDT Images from the original note were not included. 12828 Negative Pressure Wound Therapy Negative pressure wound [...] device. Last Reviewed Date: 2024 00:00:00 ?? 9024-3977 [employer]. All rights reserved. This information is not intended as a substitute for professional medical care. Always follow your healthcare professional's instructions. * Gauri Rico - Raj Cardona RN - 07/19/2025 9:43 AM EDT Images from the original note were not included. 33255 Discharge Instructions: Changing Your Dressing You are [...] the stitches or wound. ? Stitches or meagna come apart or fall out. ? Surgical tape falls off before 7 days, or as directed by your doctor. Last Reviewed Date: 2025 00:00:00 ?? 1403-0410 [employer]. All rights reserved. This information is not intended as a substitute for professional medical care. Always follow your healthcare professional's instructions. * [facility] - Raj Cardona RN - 07/19/2025 9:42 AM EDT Images from the original note were not included. [id number] Abscess (Incision and Drainage) An abscess is [...] treatment. Last Reviewed Date: 2024 00:00:00 ?? 9137-6498 [employer]. All rights reserved. This information is not intended as a substitute for professional medical care. Always follow your healthcare professional's instructions. * Gauri Rico - Raj Cardona RN - 07/19/2025 9:42 AM EDT Images from the original note were not included. 89274 Preventing a Surgical Site Infection A risk [...] of infection. ? Controlled body temperature. A yvyhy-mgxs-ggwcpo temperature during or after surgery prevents oxygen [...] and water or with an alcohol-based hand sterile instrument technician before and after caring for you. Don?t [...] away. Last Reviewed Date: 2024 00:00:00 ?? 4674-6099 [employer]. All rights reserved. This information is not intended as a substitute for professional medical care. Always follow your healthcare professional's instructions. * [facility] - Raj Cardona RN - 07/19/2025 [...] to the condition itself. It comes from [place] Islander and Latin words for a gnawing sore [...] questions. Last Reviewed Date: 2023 00:00:00 ?? 9189-8877 [employer]. All rights reserved. This information is not intended as a substitute for professional medical care. Always follow your healthcare professional's instructions. * Discharge Summary - Becky Graff, DIRECTOR OF RECRUITING - 07/19/2025 9:31 AM EDT Images from the original note were not included. Hospitalization Admit Date/Time: 07/08/2025 5:58 PM Admitting Attending: Luanne Crawford Discharge Date: 07/19/25 Discharge Attending Physician: Anne Franco MD PCP name and Address: Yenny Dhillon, DIRECTOR OF RECRUITING [address] [place] [address] Referring provider name and address: Keaton Patel MD [address] [place] [address] [facility] Chief Concern, Brief History of Present Illness, and Hospital Course Cristina Brown is a 50 y.o. female with PMH of DM, hidradenitis supparativa, current smoker (1.5ppd), hx of absent seizures, UTI, depression, anxiety, asthma, HLD, celiac disease, presenting to [facility] on 07/08/2025 as transfer with concern [...] stay, and so will be discharged to [facility]. Surgeries and Procedures Procedures performed [...] These medications were sent to [facility] - [place], [place] - [email or web address] [address] [facility] [address] [facility] [address] naloxone 4 mg/0.1 mL nasal spray Information [...] - Improving, continue to monitor Septic shock ([facility]) Overview Addendum 07/12/2025 1:55 PM by Gabriel [...] dressing in place, sutures removed on rounds. [facility] can re- apply negative pressurewound [...] please call our General Surgery Clinic at [phone]. If there are questions or concerns after discharge from the hospital, call Radha Ugalde, Nurse Coordinator between 7am-3pm at [phone]. If it is after hours, weekends, and holidays please call [phone] and ask for the resident educational administration teacher for Emergency General Surgery. Medication requests should be made between the hours of 9:00 AM to 3:00 PM Tuesday thru Tuesday. Please note that based upon recent changes to [place] law related to prescribing opioid pain medications, [...] Judgment: Judgment normal. Discharge Disposition/Condition Disposition: [facility] Condition: Stable (s/sx potential problems absent or [...] (H) 07/17/2025 I reviewed bg tracing in [facility] glucose timeline 07/19/25 ASSESSMENT Hospital Course: Cristina Brown is a 50 y.o. female with hx of type 2 DM, morbid obesity, hidradenitis supparativa, current smoker (1.5 ppd), hx of absent seizures, UTI, depression, anxiety, asthma, HLD, celiac disease who initially came to [facility] on 07/08/2025 as transfer with concern [...] to establish care with endocrine provider in [place], [place]. --> Provided patient with address and number of clinic. [[facility] Endocrinology Clinic in the [facility] Physician Building]. -Tentative discharge recommendations: Likely [...] team via secure chat orpage us at [phone] during 7a-7p, Tuesday-Tuesday. For after hours please [...] 7:08 AM EDT Associated Problem(s): Necrotizing fasciitis ([facility]) - 07/09: debridement of necrotizing fasciitis in [...] AM EDT Associated Problem(s): DM (diabetes mellitus) ([facility]) - Patient presenting with significant hyperglycemia, requiring [...] Associated Problem(s): Chronic obstructive pulmonary disease, unspecified (CMS/[facility]) Complicates care. Continue Albuterol and DuoNebs. 3L [...] and newly diagnosed JOSEP who presented to [facility] with leukocytosis and exam findings [...] the brett pad. After discussion with chief educational administration teacher, decision was made to remove the [place] and place a bkh-wcg-ytswmpef with Kerlix, Polymem, ABD pads, and skin [...] Note Cristina Brown 50 y.o. female CSN: [id number] Admission: 07/08/2025 5:58 PM Primary Problem: Necrotizing fasciitis (CMS/HCC) Anticipated Discharge Date: 07/19/25 Has Discharge Plans Changed? Yes [facility] Medicare Second Notice: Housing Circumstances: Low Income ( 101-300% Federal Poverty Guideline) Housing Circumstances Action Taken: Medically Ready for Discharge: Anticipated Tomorrow Additional Comments Per the MD pt is medically ready to d/c after she can tolerate her wv being changed without IV painmedication. SW talked with the pt and she is agreeable to go to [facility] however she still has a lot [...] the MD team. Pt will transfer to [facility] via shuttle on 07/19 if all [...] (H) 07/16/2025 I reviewed bg tracing in [facility] glucose timeline 07/18/25 ASSESSMENT Hospital Course: Cristina Brown is a 50 y.o. female with hx of type 2 DM, morbid obesity, hidradenitis supparativa, current smoker (1.5 ppd), hx of absent seizures, UTI, depression, anxiety, asthma, HLD, celiac disease who initially came to [facility] on 07/08/2025 as transfer with concern [...] to establish care with endocrine provider in [place], [place]. --> Provided patient with address and number of clinic. [[facility] Endocrinology Clinic in the [facility] Physician Building]. -Tentative discharge recommendations: Likely [...] Adult Inpatient Diabetes team via secure chat orpaCtrax us at [phone] during 7a-7p, Tuesday-Tuesday. For after hours please [...] 7:05 AM EDT Associated Problem(s): Necrotizing fasciitis ([facility]) - 07/09: debridement of necrotizing fasciitis in [...] 07/18/2025 7:04 AM EDT 07/18/25 Cristina Brown [facility] 50-year-old female [...] 07/16/25 07 - 07/16/25 18507/16/251899 - 07/17/25 0607/17/25699 - 07/17/25 18507/17/25 190 - 07/18/25 0659 [...] night Postoperative pain Present on Admission: Unknown [facility] Hypoxia Present on Admission: Unknown Non-Hospital Problems [...] Ongoing, Progressing Intervention: Promote Activity and Functional [place] Flowsheets (Taken 07/18/2025204) Activity Assistance Provided: assistance, [...] Ongoing, Progressing Intervention: Promote Activity and Functional [place] Flowsheets Taken 07/16/2025 0635 by Yessenia Ramirez [...] promoted * Progress Notes - Kathy Morris, DIRECTOR OF RECRUITING - 07/17/2025 5:54 PM EDT Endocrine - [...] HLD, celiac disease who initially came to [facility] on 07/08/2025 as transfer with concern [...] to establish care with endocrine provider in [place]. --> Provided patient with address and number of clinic. [[facility] Endocrinology Clinic in the [facility] Physician Building]. -Tentative discharge recommendations: Likely [...] via secure chat or page us at [phone] during 7a-7p, Tuesday-Tuesday. For after hours please [...] care close to her sisters house in [place]. CM notified. * Assessment & Plan Note - Jason Andre MD - 07/17/2025 10:21 AM EDT Associated Problem(s): Necrotizing fasciitis ([facility]) - 07/09: debridement of necrotizing fasciitis in [...] AM EDT Associated Problem(s): DM (diabetes mellitus) ([facility]) - Patient presenting with significant hyperglycemia, requiring [...] (severe) obesity due to excess calories (CMS/[facility]) Complicates all aspect of care * Assessment [...] 10:21 AM EDT Associated Problem(s): Postoperative pain [facility] * Progress Notes - Jason Andre MD - 07/17/2025 10:18 AM EDT 07/17/25 Cristina Brown [facility] 50-year-old female [...] Edited by: Inderjit Montes PA at 07/17/2025 0681 Relevant review of systems was obtained as [...] Output by Drain (mL) 07/15/25 07 - 07/15/25185807/15/25 1900 - 07/16/25 0659 07/16/25 07 - 07/16/25 [...] admission Level of Mobility Ambulatory- community Mobility [place] Independent gait without device History of Falls [...] motivated and engaged throughout Visitors Present None Personal Clothing Laundry Aide (if applicable) OBJECTIVE PAIN Rates pain at [...] needed areas of treatment space Level of [place] Interventions: Feeding Independent Edge of bed Patient [...] Level of Assistance: Moderate assistance Adaptive Equipment: Die Lay Out Worker, Sock aide Training and demonstration provided for use and functionality of sock aid, leg defense travel administrator strap and clay washer tool to support independence with LB dressing, [...] and prioritizing during ADL performance. Access Code: [email or web address] URL: [email or web address] Putting On Socks with a Sock Aid Putting On and Taking Off Pants Using a Die Lay Out Worker Using a Leg Cardiology Teacher Adaptive Equipment for Bathing & Showering Understanding Energy Conservation BED MOBILITY Level of [place] Physical/Non- physical Assist Adaptive Equipment Utilized Supine to Sit Modified [place] Bed rails TRANSFERS Level of [place] Physical/Non- physical Assist Adaptive Equipment Utilized Sit [...] admission Level of Mobility Ambulatory- community Mobility [place] Independent gait without device History of Falls [...] unaware when pt may be discharged from [facility]. Personal Clothing Laundry Aide (if applicable) Not Applicable OBJECTIVE & INTERVENTIONS [...] pt's true mobility BED MOBILITY Level of [place] Physical/Non- physical Assist Adaptive Equipment Utilized Rolling/ Turning Scooting/ Bridging Supine to Sit Modified [place] Bed rails Sit to Supine Interventions TRANSFERS Level of [place] Physical/Non- physical Assist Adaptive Equipment Utilized Sit to Stand Stand-by assist Supervision Rollator Stand to sit Stand-by assist Supervision Rollator Bed to Chair Toilet Transfer Shower Transfer Interventions BALANCE Postural Appearance Posture: Forward head, Rounded shoulders Level of [place] Balance Support Interventions Static Sit Standby assist Feet supported Dynamic Sit Contact guard Feet supported Dynamic Sitting-Balance: Lateral weight shifts, Anterior/Posterior weight shifts Static Stand Contact guard Right upper extremity support, Left upper extremity support Standing in room prior to ambulation Dynamic Stand Contact guard Right upper extremity support, Left upper extremity support 3 bouts of approx 1 min each AMBULATION Level of [place] Distance Adaptive Equipment Utilized Ambulation Contact guard [...] Ongoing, Progressing Intervention: Promote Activity and Functional [place] Flowsheets Taken 07/16/2025 0635 by Yessenia Ramirez [...] promoted Taken 07/14/2025 1800 by Josi Ann, event crew technician/Support System Care: support provided Goal: Optimal [...] to bathroom Taken 07/16/2025 1700 by Denia Boo, RN Head of Bed (HOB) Positioning: HOB [...] encouraged Taken 07/14/2025 1800 by Josi Ann, mission commander Review/Management: medications reviewed Intervention: Promote Injury-Free Environment Flowsheets (Taken 07/16/2025 1700 by Diego Munroe) Safety Promotion/Fall Prevention: safety round/check completed nonskid shoes/slippers when out of bed mobility aid in reach room organization consistent clutter-free environment maintained assistive device/personal items within reach Problem: Self-Care Deficit Goal: Improved Ability to Complete Activities of Daily Living Outcome: Ongoing, Progressing Intervention: Promote Activity and Functional [place] Flowsheets Taken 07/16/2025 0635 by Yessenia Ramirez [...] to bathroom Taken 07/16/2025 1700 by Denia oBo RN Head of Bed (HOB) Positioning: HOB [...] and Manage Fall Risk 07/16/20251809 by Isha Colnuga RN Flowsheets (Taken 07/16/20251699 by Diego Munroe) [...] Colunga RN Flowsheets (Taken 07/16/2025 1700 by Denai Boo RN) Body Position: weight shifting Intervention: [...] 1808) Activity Management: ambulated to bathroom 07/16/2025 180 by Isha Colunga RN Flowsheets [...] Ongoing, Progressing Intervention: Promote Activity and Functional [place] Flowsheets (Taken 07/16/2025 0129 by Eulalia Estrada, [...] Intervention: Prevent or Manage Pain Flowsheets Taken 07/16/20251809 by Isha Colunga RN Sleep/Rest Enhancement: regular sleep/rest pattern promoted Taken 07/16/2025 0129 by Eulalia Estrada trousseau consultant Interventions: (care plan) pillow support provided position [...] 3:01 PM EDT SW received call from [employer] offering assistance for d/c planning. Her Callback #[phone] * Progress Notes - Sherrill Villa APRN [...] HLD, celiac disease who initially came to [facility] on 07/08/2025 as transfer with concern [...] to establish care with endocrine provider in [place], [place]. --> Provided patient with address and number of clinic. [[facility] Endocrinology Clinic in the [facility] Physician Building]. -Tentative discharge recommendations: Likely [...] team via secure chat orpage us at [phone] during 7a-7p, Tuesday-Tuesday. For after hours please [...] 6:52 AM EDT Associated Problem(s): Necrotizing fasciitis (CMS/FORMERLY [facility]) - 07/09: debridement of necrotizing fasciitis in [...] AM EDT Associated Problem(s): DM (diabetes mellitus) ([facility]/FORM[facility]) - Patient presenting with significant hyperglycemia, requiring [...] Associated Problem(s): Chronic obstructive pulmonary disease, unspecified (CMS/FORMERLY [facility]) Complicates care. Continue Albuterol and DuoNebs. 3L [...] 0659 07/15/25 0700 - 07/15/25 1859 07/15/25 190 - 07/16/25 [...] from last 7 days Lab Units 07/16/25 0507/15/25 0450 07/14/25 0936 CREATININE mg/dL 0.48* 0.54* [...] night Postoperative pain Present on Admission: Unknown [facility] Non-Hospital Problems Carpal tunnel syndrome Dehydration [...] encouraged Taken 07/14/2025 1800 by Josi Ann, mission commander Review/Management: medications reviewed Intervention: Promote Injury-Free Environment Flowsheets (Taken 07/16/2025 0054) Safety Promotion/Fall Prevention: activity supervised assistive device/personal items within reach clutter-free environment maintained fall prevention program maintained nonskid shoes/slippers when out of bed room organization consistent safety round/check completed Problem: Self-Care Deficit Goal: Improved Ability to Complete Activities of Daily Living Outcome: Ongoing, Progressing Intervention: Promote Activity and Functional [place] Flowsheets (Taken 07/16/2025128) Self-Care Promotion: independence encouraged [...] Rita Alejandro RN Progress: improving Taken 07/14/2025 1813 by [...] Ongoing, Progressing Intervention: Promote Activity and Functional [place] Flowsheets Taken 07/15/2025 1745 by Denia Boo [...] AM EDT Adult Nutrition Evaluation Note Cristina Anayaehart 50 y.o. female CSN: [id number] Room/Bed 123/123A Nutrition evaluation type: follow-up Reason for evaluation: Hospital course: 50 y o F transferred from [facility] with concern for necrotizing fasciitis; OR 07/08 for excisional debridement of RLE, groin, pubis, and abdominal wall of skin, subcutaneous tissue, and muscle fascia, [id number]. Septic shock secondary to NSTI. Intubated & [...] Supplemental oxygen O2 Delivery Method: Nasal cannula Byron Coma Scale Score: 15 Julián Scale Score: [...] Estimated Needs: Kcal: 25-27 kcal/kg adj bw (1961-3186 kcal/d) Protein: 1.5-1.7 g/kg adj bw (143-162 [...] Anxiety Asthma Carpal tunnel syndrome Depression Diabetes ([facility]) H/O absence seizures Hidradenitis High cholesterol Hypertension [...] Progress Note Cristina Brown 50 y.o. female [facility]: [id number] Admission: 07/08/2025 5:58 PM Primary Problem: Necrotizing fasciitis (CMS/HCC) Biomass Plant Manager reviewed chart and spoke with patient to complete this Initial Case Management Assessment. PCP: Yenny Dhillon APRN Emergency Contact: Extended Emergency Contact Information Primary Emergency Contact: Yecenia [place] Mobile Relation: Sister Preferred language: Italian Personal Clothing Laundry Aide needed? No Secondary Emergency Contact: Arnoldo Raymond [address]: [address] [place] [address] [place] Mobile Relation: Significant Other Preferred language: Italian Personal Clothing Laundry Aide needed? No Insurance: Primary Visit Coverage Payer Plan Sponsor Code Group Number Group Name [facility] MEDICAID [facility] MEDICAID [facility] Primary Visit Coverage Subscriber Subscriber ID Subscriber Name Subscriber SSN Subscriber Address [id number] CRISTINA BROWN [id number] [place] [address] Patient information: Primary Caregiver: Self Accompanied by/Relationship: Arnoldo Raymond- significant other Support System: Immediate family, Extended family, Friends Daily Living Activities: Functional Status: Minimum assistance Living Arrangements: Family, Friends Type of Residence: Private residence [address] [place] [address] Smoker in the Home?: Yes Current DME: Equipment Currently Used at Home: none Income Information: Income Source: Unemployed Income/Expense Information: Expenses exceed income Current Resources Utilized: Food [place] Housing Circumstances-Z Codes: Housing Circumstances (select all [...] Dialysis Services: N/A Living Will/Advance Directive/Power of Tractor Expert /Guardian: N/A Additional Comments: Pt gets her medications from [facility] in [place] * Consults - Anupama [...] HLD, celiac disease who initially came to [facility] on 07/08/2025 as transfer with concern [...] after discharge close to her home at [place]. She agrees to call and make appointment [...] Endocrinology referral - patient requested to see dev technical mgr in [place], [place]. Provided patient with address and number of clinic. [[facility] Endocrinology Clinic in the [facility] Physician Building]. Patient has been on [...] AM EDT Associated Problem(s): DM (diabetes mellitus) ([facility]) - Patient presenting with significant hyperglycemia, requiring [...] Associated Problem(s): Chronic obstructive pulmonary disease, unspecified ([facility]) Complicates care. Continue Albuterol and DuoNebs. 3L [...] night Postoperative pain Present on Admission: Unknown [facility] Non-Hospital Problems Carpal tunnel syndrome Dehydration [...] Ongoing, Progressing Intervention: Promote Activity and Functional [place] Flowsheets Taken 07/14/20252310 by Rita Alejandro RN [...] Ongoing, Progressing Intervention: Promote Activity and Functional [place] Flowsheets (Taken 07/14/2025 1800) Activity Assistance Provided: [...] PM EDT Operative Note Date: 07/14/25 Location: [facility] Name: Cristina Brown, : 1975, Diagnoses: Pre-op Diagnosis Necrotizing fasciitis (CMS/HCC) Post-op Diagnosis Necrotizing fasciitis (CMS/HCC) Procedure(s): Wound irrigation Partial wound closure, total closed 30 cm length Attending Surgeon(s): * Anne Franco - Primary Pricing Associate(s): * Janell Cross MD - Resident - Assisting Anesthesia: General ASA: III Blood Administration: Blood Product Administration History Product Date Volume Status Transfuse RBC RBC 07/08/2025 350 mL Completed 07/08/252 Transfuse fresh frozen plasma Plasma 07/08/2025 300 [...] (mL) 30 mL 07/14/25 1625 [REMOVED] NG/OG M[facility]ade Sump [facility] mouth (Removed) Placement Verification [...] (mL) 49 mL 07/10/25 0000 [REMOVED] NG/OG Mcdade Sump 14 Fr Left nostril (Removed) Placement [...] portions of the procedure(s) and immediately available [facility] services the entire duration. See resident note for details. Anne Franco MD * Consults - Mary Luogn RN - 07/14/2025 9:36 AM EDTAssociated Order(s): [...] Associated Problem(s): Chronic obstructive pulmonary disease, unspecified ([facility]/HCC) Complicates care. Continue Albuterol and DuoNebs. [...] Morbid (severe) obesity due to excess calories ([facility]/HCC) Complicates all aspect of care * Assessment & Plan Note - Jason Andre MD - 07/14/2025 7:31 AM EDT Associated Problem(s): Urge incontinence Patient currently with a montalvo catheter. Remove when able. * Assessment & Plan Note - Jason Andre MD - 07/14/2025 7:31 AM EDT Associated Problem(s): Absence seizure ([facility]) - On Lamictal 50mg BID at home. [...] 7:31 AM EDT Associated Problem(s): Septic shock ([facility]) Septic shock secondary to necrotizing fascitis. Required [...] night Postoperative pain Present on Admission: Unknown [facility] Non-Hospital Problems Carpal tunnel syndrome Dehydration [...] clutter-free environment maintained assistive device/personal items within [facility] fall prevention program maintained nonskid shoes/slippers when [...] Ongoing, Progressing Intervention: Promote Activity and Functional [place] Flowsheets (Taken 07/13/20251826) Activity Assistance Provided: assistance, [...] Note Cristina Brown 50 y.o. female CSN: [id number] Admission: 07/08/2025 5:58 PM Primary Problem: Necrotizing fasciitis (CMS/HCC) Biomass Plant Manager reviewed chart and spoke with Cristina to complete this Initial Case Management Assessment. PCP: Yenny Dhillon APRN Emergency Contact: Extended Emergency Contact Information Primary Emergency Contact: JayaYecenia Mobile Relation: Sister Preferred language: Italian Personal Clothing Laundry Aide needed? No Secondary Emergency Contact: Arnoldo Raymond Address: [address] [place] [address] Mobile Relation: Significant Other Preferred language: Italian Personal Clothing Laundry Aide needed? No Insurance: Primary Visit Coverage Payer Plan Sponsor Code Group Number Group Name [facility] MEDICAID [facility] MEDICAID [facility] Primary Visit Coverage Subscriber Subscriber ID Subscriber Name Subscriber N Subscriber Address [id number] CRISTINA BROWN [id number] [place] [address] Patient information: Primary Caregiver: Self Accompanied by/Relationship: Arnoldo Raymond- significant other Support System: Immediate family Daily Living Activities: Functional Status: Independent Living Arrangements: Spouse/Significant other Type of Residence: Private residence [address] [place] [address] Current DME: Equipment Currently Used at Home: none Income Information: Housing Circumstances-Z Codes: Patient Referred to: Anticipated Discharge Date: unknown Patient's Discharge Goal: Referrals sent for Acute Rehab Assistance Available at Discharge: Arnoldo Raymond Discharge Transport: Arnoldo Raymond Follow Up Transport: Arnoldo raymond Home Health / Home Infusion / Outpatient Dialysis Services: none Living Will/Advance Directive/Power of Tractor Expert /Guardian: Additional Comments: AMIRA discussed acute rehab placement with Cristina and Arnoldo Raymond. Their first choice is [facility] in [place], [place]. CM sent referrals in [facility]. Cristina will continue inpatient management for necrotizing fascitis in right lower extremity until placement in acute rehab. Cristina has support once discharged from acute rehab at home. Cristina does have concerns if she needs to move and may need resources[facility] Marilee [...] PM EDT Associated Problem(s): DM (diabetes mellitus) ([facility]) - Patient presenting with significant hyperglycemia, requiring [...] admitted 07/08/2025 for work-up of Necrotizing fasciitis ([facility]). Problem List Active Hospital Problems Diagnosis Date [...] evaluation. Participants in Care Family/Caregiver Present: No Personal Clothing Laundry Aide: Not Applicable Presentation Oxygen Therapy: Supplemental oxygen [...] admission Level of Mobility: Ambulatory- community Mobility [place]: Independent gait without device History of Falls: [...] Mobility Bed Mobility Exam: Scooting/Bridging Level of [place]: Contact guard (seated scoot once sitting up on EOB and able to wiggle back into recliner chair) Bed Mobility Exam: Supine to Sit Level of [place]: Moderate assist (50% patient's effort) Physical/Nonphysical Assist: Verbal Cues, Moderate cues, Additional assist utilized for safety, HOBelevated Assistive Device: Other (INNOVATION ANALYST x2) Transfers Transfer Interventions: Patient performed sit < > stand x 3 reps total: Mod A from EOB, Min Afrom recliner chair, and CGA from BSC. Transfer Exam: Sit to stand Level of [place]: Minimum assist (75% patient's effort) Physical/Nonphysical Assist: Verbal Cues, Minimal cues Assistive Device: Walker, rolling (andrea) Transfer Exam: Stand to Sit Level of [place]: Minimum assist (75% patient's effort) Physical/Nonphysical Assist: Verbal Cues, Minimal cues Assistive Device: Walker, rolling (andrea) Transfer Exam: Bed to Chair/Chair to Bed Level of [place]: Minimum assist (75% patient's effort) Physical/Nonphysical Assist: Verbal Cues, Minimal cues, Additional assist utilized for safety Type of Transfer: Sidesteps (bed > chair < > BSC) Assistive Device: Walker, rolling (andrea) Toilet Transfer Level of [place]: Minimum assist (75% patient's effort) Physical/Nonphysical Assist: [...] to allow bedside care to take placed (FOOD SERVICE HELPER entering to take vitals; RN enforcing bandages [...] Standardized Assessments [facility] 6-Click Daily Activities Help from Other: Don/Doff Regular Lower Body Clothings: A lot Help From Other: Bathing: A lot Help From Other: Toileting: A lot Help From Other: Don/Doff Upper Body Clothings: Little Help From Other: Grooming: None Help From Other: Eating Meals: None [facility] 6 Click - Daily Activities Score: 17 [...] admitted 07/08/2025 for work-up of Necrotizing fasciitis ([facility]). Problem List Active Hospital Problems Diagnosis Date [...] of Anxiety, Asthma, Carpal tunnel syndrome, Depression, Diabetes([facility]), H/O absence seizures, Hidradenitis, High cholesterol, Hypertension, [...] move. Participants in Care Family/Caregiver Present: No Personal Clothing Laundry Aide: Not Applicable Presentation Oxygen Therapy: Supplemental oxygen [...] admission Level of Mobility: Ambulatory- community Mobility [place]: Independent gait without device History of Falls: [...] Mobility Bed Mobility Exam: Scooting/Bridging Level of [place]: Contact guard (seated scoot once sitting up on EOB and able to wiggle back into recliner chair) Bed Mobility Exam: Supine to Sit Level of [place]: Moderate assist (50% patient's effort) Physical/Nonphysical Assist: Verbal Cues, Moderate cues, Additional assist utilized for safety, HOBelevated Assistive Device: Other (INNOVATION ANALYST x 2) Transfers Transfer Interventions: Patient performed sit < > stand x 3 reps total: Mod A from EOB, Min Afrom recliner chair, and CGA from BSC. Cues for safe hand placement during transitions using RW. Transfer Exam: Sit to stand Level of [place]: Minimum assist (75% patient's effort) Physical/Nonphysical Assist: Verbal Cues, Minimal cues Assistive Device: Walker, rolling (andrea) Transfer Exam: Stand to Sit Level of [place]: Minimum assist (75% patient's effort) Physical/Nonphysical Assist: Verbal Cues, Minimal cues Assistive Device: Walker, rolling (andrea) Transfer Exam: Bed to Chair/Chair to Bed Level of [place]: Minimum assist (75% patient's effort) Physical/Nonphysical Assist: Verbal Cues, Minimal cues, Additional assist utilized for safety Type of Transfer: Sidesteps (bed > chair < > BSC) Assistive Device: Walker, rolling (andrea) Toilet Transfer Level of [place]: Minimum assist (75% patient's effort) Physical/Nonphysical Assist: [...] Assessments Standardized Assessments Standardized Assessments: [facility] 6-Clicks Mobility Assessment [facility] 6-Clicks Mobility Assessment Difficulty patient has turning [...] steps with a railing?: Unable [facility] 6-Clicks Mobility Assessment Total : 15 No [...] anxiety, asthma, HLD, celiac disease, presenting to [facility] on 07/08/2025 as transfer with concern [...] stay, and so will be discharged to [facility]. * Assessment & Plan Note [...] - 07/12/25 0659 07/12/25 07 - 07/12/25 18507/12/25 1900 - [...] night Postoperative pain Present on Admission: Unknown [facility] Non-Hospital Problems Carpal tunnel syndrome Dehydration [...] - Improving, continue to monitor Septic shock ([facility]) Yes Overview Addendum 07/12/2025 1:55 PM by [...] Overview Signed 08/31/2023 9:36 AM by Janell Buneo Last Assessment & Plan: Condition: stable Follow [...] saw and evaluated the patient with the medical/COTTON PICKING MACHINE OPERATOR/PA student. I discussed the case with the medical/COTTON PICKING MACHINE OPERATOR/PA student and agree with the findings and [...] ICU room. * Op Note - Dorcas Hennesys MD - 07/11/2025 2:46 PM EDT Operative Note Date: 07/11/25 Location: [facility] Name: Cristina Brown, : 1975, Diagnoses: Pre-op Diagnosis Necrotizing fasciitis (CMS/HCC) Post-op Diagnosis Necrotizing fasciitis (CMS/HCC) Procedure(s): Right groin/perineum/thigh/abdominal wound exploration and washout Attending Surgeon(s): * Dorcas Hennessy - Primary Pricing Associate(s): * Janell Cross MD - Resident - [...] mL Completed 07/08/25 234 Estimated Blood Loss: None Drains: Urethral Catheter [...] who is having surgery for Necrotizing fasciitis (CMS/[facility]). Patient had 2 prior debridements of her [...] Note Cristina Brown 50 y.o. female CSN: [id number] Room/Bed 133/133A Nutrition evaluation type: follow-up Reason for evaluation: Hospital course: 50 y o F [facility] with concern for necrotizing fasciitis; OR 07/08 for excisional debridement of RLE, groin, pubis, and abdominal wall of skin, subcutaneous tissue, and muscle fascia, [id number]. Septic shock secondary to NSTI. Intubated & [...] O2 Delivery Method: High flow nasal cannula Byron Coma Scale Score: 15 Satnam/Cubbin Pressure Risk [...] Estimated Needs: Kcal: 25-27 kcal/kg adj bw (6446-0285 kcal/d) Protein: 1.5-1.7 g/kg adj bw (143-162 [...] -will monitor NPO duration -po per MD/ SUPERVISOR CIGAR PROCESSING -when po diet appropriate, rec CC3, Gluten [...] Anxiety Asthma Carpal tunnel syndrome Depression Diabetes ([facility]) H/O absence seizures Hidradenitis High cholesterol Hypertension [...] 07/11/2025 9:23 AM by Gabriel Segovia - Meggan care. - Continue Albuterol and DuoNebs. -Pulm [...] Morbid (severe) obesity due to excess calories ([facility]) (Chronic) Yes Overview Addendum 07/11/2025 9:31 AM by Gabriel Segovia - Alondras care. - Counseling when appropriate. Smoker (Chronic) Yes Overview Signed 07/09/2025 3:05 PM by Lidia Ellis MD - Patient smokes 0.5-1ppd. - Smoking cessation when appropriate. Urge incontinence (Chronic) Yes DM (diabetes mellitus) ([facility]) (Chronic) Yes Overview Addendum 07/09/2025 4:11 PM by Lidia Ellis MD - Patient hyperglycemic, up to 300s. - Insulin drip per protocol. Hidradenitis (Chronic) Yes Absence seizure ([facility]) (Chronic) Yes Overview Addendum 07/11/2025 9:20 AM [...] assisted with communication Taken 07/09/2025 1447 by Striebel, Jeana Trust Relationship/Rapport: care explained choices provided emotional support provided empathic listening provided thoughts/feelings acknowledged reassurance provided questions encouraged questions answered Problem: Skin Injury Risk Increased Goal: Skin Health and Integrity Outcome: Ongoing, Progressing Intervention: Optimize Skin Protection Flowsheets Taken 07/11/2025 0030 by Cheyanne Briceño, RN Skin Protection: incontinence pads utilized Taken [...] PM EDT Operative Note Date: 07/10/25 Location: [facility] Name: Cristina Brown, : 1975, Diagnoses: Pre-op Diagnosis Necrotizing fasciitis (CMS/HCC) Post-op Diagnosis Necrotizing fasciitis (CMS/HCC) Procedure(s): Right groin/perineum/thigh/abdominal wound exploration, debridement, and washout Attending Surgeon(s): * Dorcas Hennessy - Primary Pricing Associate(s): * Shelby Whittington MD - Resident - [...] 2342 Estimated Blood Loss: Minimal Drains: NG/OG Mcdade Sump 14 Fr Left nostril (Active) Placement Verification distal tube length;X-ray 07/10/251199 Tube Placement Length Marking (cm) 60 07/10/25 1200 Site Assessment Clean;Dry;Intact 07/10/25 1200 Surrounding Skin Dry;Intact 07/10/25 1200 Secured by Tape 07/10/25 1200 Secured Location Left Nostril 07/10/25 1200 NG/OG Status Clamped 07/10/25 1200 NG/OG Interventions Skin assessed;Air injected into blue air vent port;Clamped 07/10/251199 Tape Change/Repostion Date 07/10/25 07/10/25 1200 Tape [...] Findings: All viable tissue. Wound measuring approximately [id number]. Packed with 5 kerlix tied together. Indications: [...] Edited by: Lidia Ellis MD at 07/10/2025 4702 Relevant review of systems was obtained as [...] (mL) 07/08/25 07 - 07/08/25 1859 07/08/25 190 - 07/09/25 0659 07/09/25 07 - 07/09/25 1859 07/09/25 1900 - 07/10/25 0659 07/10/25 07 - 07/10/25 [...] Morbid (severe) obesity due to excess calories ([facility]) Yes Overview Addendum 07/09/2025 4:07 PM by Lidia Ellis MD Complicates care. Smoker Yes Overview Signed 07/09/2025 3:05 PM by Lidia Ellis MD - Patient smokes 0.5-1ppd. - Smoking cessation when appropriate. Urge incontinence Yes DM (diabetes mellitus) ([facility]) Yes Overview Addendum 07/09/2025 4:11 PM by Lidia Ellis MD - Patient hyperglycemic, up to 300s. - Insulin drip per protocol. Hidradenitis Yes Absence seizure ([facility]) (Chronic) Yes Overview Addendum 07/10/2025 4:52 PM by Lidia Ellis MD On Lamictal 50mg BID. Acute respiratory failure Yes Overview Signed 07/09/2025 3:57 PM by Lidia Ellis MD - Patient presenting in septic shock due to RLE necrotizing fasciitis. - Requiring ventilator for respiratory support. Wean as tolerated. Septic shock ([facility]) Yes Overview Addendum 07/10/2025 4:53 PM by [...] for outside parameter Switch to plov from [facility] Started Vaso and gave [...] Protection: absorbent pad utilized/changed positioning supports utilized [id number] areas padded [id number] areas padded Problem: Skin Injury Risk Increased [...] Protect Skin and Joint Integrity Flowsheets Taken 07/09/20257 Body Position: turned Skin Protection: pulse oximeter [...] Progressing Intervention: Optimize Skin Protection Flowsheets Taken 07/09/20251446 Pressure Reduction Techniques: heels elevated off bed weight shift assistance provided Head of Bed (HOB) Positioning: HOB at 30 degrees Taken 07/09/2025 1300 Activity Management: activity adjusted per tolerance Problem: Restraint, Nonviolent Goal: Absence of Harm or Injury Outcome: Ongoing, Progressing Intervention: Protect Dignity, Rights and Personal Wellbeing Flowsheets (Taken 07/09/20251446) Trust Relationship/Rapport: care explained choices provided emotional support provided empathic listening provided thoughts/feelings acknowledged reassurance provided questions encouraged questions answered Intervention: Protect Skin and Joint Integrity Flowsheets (Taken 07/09/20251446) Range of Motion: ROM (range of motion) [...] Note Cristina Brown 50 y.o. female CSN: [id number] Room/Bed 133/133A Nutrition evaluation type: assessment Reason for evaluation: provider consult Hospital course: 50 y o F transferred from [facility] with concern for necrotizing fasciitis; OR 07/08 for excisional debridement of RLE, groin, pubis, and abdominal wall of skin, subcutaneous tissue, and muscle fascia, [id number]. Septic shock secondary to NSTI. Intubated & sedated. TF initiated 07/09. Past medical/ surgical history: Past Medical History[1], celiac disease Surgical History[2] Social history: Social History[3] Additional comments: 07/09: Pt intubated and sedated. Visitor sleeping. Vitals and Basic Assessment: BP: 89/50 Temp: 36.3 ??C (97.3 ??F) Invasive Ventilator Initiated (ETT/Trach Only): Yes Oxygen Therapy: Supplemental oxygen O2 Delivery Method: Endotracheal tube, Mechanical ventilator Byron Coma Scale Score: 10 Satnam/Cubbin Pressure Risk [...] oz) Estimated Needs: Kcal: 22-25 kcal/kg IBW (1874-4068 kcal/d) Protein: 2-2.5 g/kg IBW (136-171 g/d) [...] decreased. Palpations: Abdomen is soft. Skin: Comments: [id number] open wound with no extension of cellulitis. [...] by Drain (mL) 07/07/25 07 - 07/07/25 1859 07/07/25 1900 - 07/08/25 [...] drip per protocol. Hidradenitis Yes Absence seizure (CMS/[facility]) (Chronic) Yes Overview Addendum 07/09/2025 4:08 PM [...] PM EDT Operative Note Date: 07/08/25 Location: [facility] Name: Cristina Brown, : 1975, Diagnoses: Pre-op Diagnosis Necrotizing fasciitis (CMS/HCC) Post-op Diagnosis Necrotizing fasciitis (CMS/HCC) Procedure(s): Excisional debridement of right thigh, groin pubis and abdominal wall including skin, subcutaneous tissue and fascia measuring 65 x 20 x 2cm Attending Surgeon(s): * Luanne Crawford - Primary Pricing Associate(s): * Kristy Fields MD - Resident - [...] mL Completed 07/08/25 234 Estimated Blood Loss: 1000cc Drains: Urethral Catheter Temperature probe 16 Fr. (Active) Specimen: right thigh skin and subcutaneous tissue Findings: necrotizing fasciitis involving right leg, groin, abdominal wall Indications: Cristina Brown is an 50 y.o. female who is having surgery for Necrotizing fasciitis (CMS/HCC). Patient presented as transfer from H with [...] 07/08/2025 9:01 PM EDT Date: 07/09/25 Location: [facility] Name: Cristina Brown, : 1975, Diagnoses: Pre-op Diagnosis Necrotizing fasciitis (CMS/HCC) Post-op Diagnosis Necrotizing fasciitis (CMS/HCC) Procedure(s): Excisional debridement of right lower extremity, groin, pubis, and abdominal wall of skin, subcutaneous tissue, and muscle fascia, 65x20 cm Attending Surgeon(s): * Luanne Crawford - Primary Pricing Associate(s): * Kristy Fields MD - Resident - [...] Anxiety, Asthma, Carpal tunnel syndrome, Depression, Diabetes ([facility]), H/O absence seizures, Hidradenitis, High cholesterol, Hypertension, [...] mL IVPB (vial adapter required) 2 g [id number] Deepthi Garcia MD linezolid (Zyvox) injection 600 [...] ppd), asthma, HLD, celiac disease, presenting to [facility] on 07[facility]25 as transfer with concern [...] infusion 0.04 mcg/kg/min Intravenous New Bag 07/08/2025 182 EDT linezolid (Zyvox) injection 600 mg 600 mg Intravenous New Bag 07/08/2025 1907 EDT linezolid (Zyvox) injection 600 mg 0 mg Intravenous Stopped All Other Orders Ordered Status Ordering Provider 07/08/251916 NPO diet Diet effective midnight Acknowledged AMINA RAMIREZ 07/08/251955 Admit to inpatient Once Completed [facility] 07/08/251916 Skin prep Once Acknowledged [facility] 07/08/251916 Hibiclens Scrub Until discontinued Comments: Shower/scrub evening before and morning of procedure; include 5 minutes scrub each time to operative site with chlorhexidine gluconate 4% (Hibiclekeyonna). Acknowledged AMINA RAMIREZ 07/08/251916 Void educational administration teacher to OR Once Acknowledged MARGARETTE AMINA 07/08/251916 Case Request Operating Room: IRRIGATION AND DEBRIDEMENT, WOUND Once Completed AMINA RAMIREZ 07/08/25 181 Once Canceled MY CHARLES 07/08/25 181 Once Canceled DEEPTHI GARCIA 07/08/25 1809 CMP [...] Once Final result MY CHARLES Carlos 07/08/25 1809 ED HIV 1/2 Antibody/Antigen Screen [...] 013 Blood cultures ordered and pending [MR] 0131 [...] None Disposition Admit Admitting/Attending Physician: LUANNE CRAWFORD [[id number]] Provider Care Team: [facility] ICU 1 [159] Are they the primary team?: Yes [1] Thank you for allowing me to participate in your care. Deepthi Garcia MD Emergency Medicine PGY 1' [1] Past Medical History: Diagnosis Date Anxiety Asthma Carpal tunnel syndrome Depression Diabetes ([facility]) H/O absence seizures Hidradenitis High cholesterol Hypertension [...] Makes her mean Deepthi Garcia MD Resident 07/09/253 Cosigned by My Charles MD at 07/09/2025 [...] Description 08/20/2025 10:30 AM EDT Office Visit [facility] General Surgery [address] [place] [id number] Lilliana Morfin, DIRECTOR OF RECRUITING [address] [place] [address] Scheduled Referrals Name Type Priority Associated Diagnoses Order Schedule Discharge Ambulatory referral to NON Endocrinology Outpatient Referral Routine Morbid (severe) obesity due to excess calories ([facility]) Type 2 diabetes mellitus with hyperglycemia, without long-term current use of insulin ([facility]) Celiac disease Expected: 07/15/2025 (Approximate), Expires: 01/16/2027 [...] due to excess calories (CMS/HCC) Septic shock (CMS/[facility]) Acute respiratory failure with hypoxia POCT GLUCOSE [...] 07/19/2025 5:32 PM EDT [facility] Member Of Technical Staff ID Laura Baez 025 5:32 PM EDT [facility] Device ID [id number] 07/19/2025 5:32 PM EDT [facility] Specimen Type POC Capillary 07/19/2025 5:32 PM EDT [facility] Blood Capillary blood specimen / Unknown 07/19/2025 12:27 PM EDT 07/19/2025 5:32 PM EDT us Anne Franco MD LAB POINT OF CARE TEST DOCKED DEVICE UNSOLICITED RESULTS Final Result [facility] [address] [place] [address] * Phosphorus (07/19/2025 4:28 AM EDT) Phosphorus, Plasma 3.6 2.5 - 4.5 mg/dL 07/19/2025 5:03 AM EDT [facility] Blood Venous blood specimen / Unknown Venipuncture / Unknown 07/19/2025 4:28 AM EDT 07/19/2025 4:35 AM EDT Anne Franco MD LAB BLOOD ORDERABLES Sarah l Result Performing Organization Address City/[facility]/ZIP Co de Phone Number [facility] [address] [place] [address] * (ABNORMAL) Magnesium (07/19/2025 4:28 AM EDT) [facility] Magnesium, Plasma 1.8(L) 1.9 - 2.4 mg/dL 07/19/2025 5:03 AM EDT [facility] Blood Venous blood specimen / Unknown Venipuncture / Unknown 07/19/2025 4:28 AM EDT 07/19/2025 4:35 AM EDT Anne Franco MD LAB BLOOD ORDERABLES Sarah l Result Performing Organization Address City/[facility]/ZIP Co de Phone Number [facility] [address] [place] [address] * (ABNORMAL) CBC W/O Differential (07/19/2025 4:28 AM EDT) [facility] WBC Count 18.39(H) 3.70 - 10.30 10*3/uL LAB HEMATOLOGY METHOD 07/19/2025 4:51 AM EDT [facility] RBC Count 3.50(L) 3.90 - 5.20 10*6/uL LAB HEMATOLOGY METHOD 07/19/2025 4:51 AM EDT [facility] HGB 9.6(L) 11.2 - 15.7 g/dL LAB HEMATOLOGY METHOD 07/19/2025 4:51 AM EDT [facility] HCT 30.7(L) 34.0 - 45.0 % LAB HEMATOLOGY METHOD 07/19/2025 4:51 AM EDT [facility] Platelet Count 627(H) 155 - 369 10*3/uL LAB HEMATOLOGY METHOD 07/19/2025 4:51 AM EDT [facility] MCV 88 79 - 98 fL LAB HEMATOLOGY METHOD 07/19/2025 4:51 AM EDT [facility] MCH 27.4 26.0 - 32.0 pg LAB HEMATOLOGY METHOD 07/19/2025 4:51 AM EDT [facility] MCHC 31.3 30.7 - 35.5 g/dL LAB HEMATOLOGY METHOD 07/19/2025 4:51 AM EDT [facility] RDW 18.2(H) 11.5 - 14.5 % LAB HEMATOLOGY METHOD 07/19/2025 4:51 AM EDT [facility] MPV 10.2 8.8 - 12.5 fL LAB HEMATOLOGY METHOD 07/19/2025 4:51 AM EDT [facility] nRBC 0.1(H) <=0.0 per 100 WBCs LAB HEMATOLOGY METHOD 07/19/2025 4:51 AM EDT [facility] Blood Venous blood specimen / Unknown Venipuncture / Unknown 07/19/2025 4:28 AM EDT 07/19/2025 4:36 AM EDT us Anne Franco MD LAB BLOOD ORDERABLES Sarah l Result [facility] [address] [place] [address] * (ABNORMAL) Basic metabolic panel (07/19/2025 4:28 AM EDT) Glucose, Plasma 153(H) 74 - 99 mg/dL 07/19/2025 5:03 AM EDT [facility] BUN, Plasma 14 7 - 21 mg/dL 07/19/2025 5:03 AM EDT [facility] Creatinine, Plasma 0.73 0.60 - 1.10 mg/dL 07/19/2025 5:03 AM EDT [facility] BUN/Creatinine Ratio 19 07/19/2025 5:03 AM EDT [facility] Sodium, Plasma 137 136 - 145 mmol/L 07/19/2025 5:03 AM EDT [facility] Potassium, Plasma 4.3 3.6 - 4.9 mmol/L 07/19/2025 5:03 AM EDT [facility] Chloride, Plasma 97 97 - 107 mmol/L 07/19/2025 5:03 AM EDT [facility] CO2, Plasma 28 22 - 29 mmol/L 07/19/2025 5:03 AM EDT [facility] Anion Gap 12 6 - 16 mmol/L 07/19/2025 5:03 AM EDT [facility] Total Calcium, Plasma 9.0 8.9 - 10.2 mg/dL 07/19/2025 5:03 AM EDT [facility] eGFRcr 101.0 mL/min/1.7 3m*2 07/19/2025 5:03 AM EDT [facility] Comment:Reported eGFRcr in m L/min/1.73m2 is based the CKD-EPI 2020 equation that does not use a race coefficient. Blood Venous blood specimen / Unknown Venipuncture / Unknown 07/19/2025 4:28 AM EDT 07/19/2025 4:35 AM EDT us Anne Franco MD LAB BLOOD ORDERABLES Sarah bennett Result [facility] [address] [place] [address] * (ABNORMAL) POCT glucose meter (07/18/2025 8:33 [...] 07/18/2025 8:36 PM EDT [facility] Member Of Technical Staff ID Zach Martinze 8:36 PM EDT [facility] Device ID [id number] 07/18/2025 8:36 PM EDT [facility] Specimen Type POC Capillary 07/18/2025 8:36 PM EDT [facility] Blood Capillary blood specimen / Unknown 07/18/2025 8:33 PM EDT 07/18/2025 8:36 PM EDT us Anne Franco MD LAB POINT OF CARE TEST DOCKED DEVICE UNSOLICITED RESULTS Final Result Performing Organization Address City/[facility] Co de Phone Number [facility] [address] [place] [address] * (ABNORMAL) POCT glucose meter (07/18/2025 6:07 PM EDT) [facility] POCT Glucose 222(H) 74 - 99 mg/dL [...] Comment 07/18/2025 6:08 PM EDT [facility] Member Of Technical Staff ID Monique Jacques 6:08 PM EDT [facility] Device ID [id number] 07/18/2025 6:08 PM EDT [facility] Specimen Type POC Capillary 07/18/2025 6:08 PM EDT [facility] Blood Capillary blood specimen / Unknown 07/18/2025 6:07 PM EDT 07/18/2025 6:08 PM EDT us Anne Franco MD LAB POINT OF CARE TEST DOCKED DEVICE UNSOLICITED RESULTS Final Result Performing Organization Address City/[facility] Co de Phone Number [facility] [address] [place] [address] * (ABNORMAL) POCT glucose meter (07/18/2025 12:36 PM EDT) [facility] POCT Glucose 151(H) 74 - 99 [...] 07/18/2025 12:38 PM EDT [facility] Member Of Technical Staff ID Laura Baez 025 12:38 PM EDT [facility] Device ID [id number] 07/18/2025 12:38 PM EDT [facility] Specimen Type POC Capillary 07/18/2025 12:38 PM EDT [facility] Blood Capillary blood specimen / Unknown 07/18/2025 12:36 PM EDT 07/18/2025 12:38 PM EDT Anne Franco MD LAB POINT OF CARE TEST DOCKED DEVICE UNSOLICITED RESULTS Final Result [facility] [address] [place] [address] * (ABNORMAL) POCT glucose meter (07/18/2025 8:39 AM EDT) [facility] POCT Glucose 149(H) 74 - 99 mg/dL [...] 07/18/2025 8:41 AM EDT [facility] Member Of Technical Staff ID Laura Baez 025 8:41 AM EDT [facility] Device ID [id number] 07/18/2025 8:41 AM EDT [facility] Specimen Type POC Capillary 07/18/2025 8:41 AM EDT [facility] Blood Capillary blood specimen / Unknown 07/18/2025 8:39 AM EDT 07/18/2025 8:41 AM EDT us Anne Franco MD LAB POINT OF CARE TEST DOCKED DEVICE UNSOLICITED RESULTS Final Result [facility] [address] [place] [address] * (ABNORMAL) Basic metabolic panel (07/18/2025 6:03 AM EDT) Glucose, Plasma 163(H) 74 - 99 mg/dL 07/18/2025 6:45 AM EDT [facility] BUN, Plasma 11 7 - 21 mg/dL 07/18/2025 6:45 AM EDT [facility] Creatinine, Plasma 0.65 0.60 - 1.10 mg/dL 07/18/2025 6:45 AM EDT [facility] BUN/Creatinine Ratio 17 07/18/2025 6:45 AM EDT [facility] Sodium, Plasma 138 136 - 145 mmol/L 07/18/2025 6:45 AM EDT [facility] Potassium, Plasma 3.8 3.6 - 4.9 mmol/L 07/18/2025 6:45 AM EDT [facility] Chloride, Plasma 99 97 - 107 mmol/L 07/18/2025 6:45 AM EDT [facility] CO2, Plasma 29 22 - 29 mmol/L 07/18/2025 6:45 AM EDT [facility] Anion Gap 10 6 - 16 mmol/L 07/18/2025 6:45 AM EDT [facility] Total Calcium, Plasma 8.5(L) 8.9 - 10.2 mg/dL 07/18/2025 6:45 AM EDT [facility] eGFRcr 108.1 mL/min/1.7 3m*2 07/18/2025 6:45 AM EDT [facility] Comment:Reported eGFRcr in m L/min/1.73m2 is based the CKD-EPI 2020 equation that does not use a race coefficient. Blood Venous blood specimen / Unknown Venipuncture / Unknown 07/18/2025 6:03 AM EDT 07/18/2025 6:12 AM EDT us Anne Franco MD LAB BLOOD ORDERABLES Sarah bennett Result [facility] [address] [place] [address] * (ABNORMAL) CBC W/O Differential (07/18/2025 6:03 AM EDT) WBC Count 16.76(H) 3.70 - 10.30 10*3/uL LAB HEMATOLOGY METHOD 07/18/2025 6:25 AM EDT [facility] RBC Count 3.25(L) 3.90 - 5.20 10*6/uL LAB HEMATOLOGY METHOD 07/18/2025 6:25 AM EDT [facility] HGB 9.1(L) 11.2 - 15.7 g/dL LAB HEMATOLOGY METHOD 07/18/2025 6:25 AM EDT [facility] HCT 28.8(L) 34.0 - 45.0 % LAB HEMATOLOGY METHOD 07/18/2025 6:25 AM EDT [facility] Platelet Count 523(H) 155 - 369 10*3/uL LAB HEMATOLOGY METHOD 07/18/2025 6:25 AM EDT [facility] MCV 89 79 - 98 fL LAB HEMATOLOGY METHOD 07/18/2025 6:25 AM EDT [facility] MCH 28.0 26.0 - 32.0 pg LAB HEMATOLOGY METHOD 07/18/2025 6:25 AM EDT [facility] MCHC 31.6 30.7 - 35.5 g/dL LAB HEMATOLOGY METHOD 07/18/2025 6:25 AM EDT [facility] RDW 17.6(H) 11.5 - 14.5 % LAB HEMATOLOGY METHOD 07/18/2025 6:25 AM EDT [facility] MPV 10.3 8.8 - 12.5 fL LAB HEMATOLOGY METHOD 07/18/2025 6:25 AM EDT [facility] nRBC 0.0 <=0.0 per 100 WBCs LAB HEMATOLOGY METHOD 07/18/2025 6:25 AM EDT [facility] Blood Venous blood specimen / Unknown Venipuncture / Unknown 07/18/2025 6:03 AM EDT 07/18/2025 6:12 AM EDT Anne Franco MD LAB BLOOD ORDERABLES Sarah l Result Performing Organization Address City/[facility] Co de Phone Number [facility] [address] [place] [address] * (ABNORMAL) POCT glucose meter (07/17/2025 10:33 PM EDT) [facility] POCT Glucose 171(H) 74 - 99 mg/dL [...] Comment 07/17/2025 10:35 PM EDT [facility] Member Of Technical Staff ID Nipper, 07/17/2025 10:35 PM EDT [facility] Device ID [id number] 07/17/2025 10:35 PM EDT [facility] Specimen Type POC Capillary 07/17/2025 10:35 PM EDT [facility] Blood Capillary blood specimen / Unknown 07/17/2025 10:33 PM EDT 07/17/2025 10:35 PM EDT Anne Franco MD LAB POINT OF CARE TEST DOCKED DEVICE UNSOLICITED RESULTS Final Result Performing Organization Address City/[facility] Co de Phone Number [facility] [address] [place] [address] * PERIPHERAL IV (SMARTFORM LINK) (07/17/2025 5:14 PM EDT) Narrative Arturo Mancilla, NAHID - 07/17/2025 5:14 PM EDT Arturo Mancilla, [...] for testing. Comment 07/17/2025 5:12 PM EDT [facility] Member Of Technical Staff ID Monique Jacques 5:12 PM EDT [facility] Device ID [id number] 07/17/2025 5:12 PM EDT [facility] Specimen Type POC Capillary 07/17/2025 5:12 PM EDT [facility] Blood Capillary blood specimen / Unknown 07/17/2025 5:10 PM EDT 07/17/2025 5:12 PM EDT us Anne Franco MD LAB POINT OF CARE TEST DOCKED DEVICE UNSOLICITED RESULTS Final Result [facility] [address] [place] [address] * (ABNORMAL) POCT glucose meter (07/17/2025 12:06 [...] Comment 07/17/2025 12:07 PM EDT [facility] Member Of Technical Staff ID Josi Ann 12:07 PM EDT [facility] Device ID [id number] 07/17/2025 12:07 PM EDT [facility] Specimen Type POC Capillary 07/17/2025 12:07 PM EDT [facility] Blood Capillary blood specimen / Unknown 07/17/2025 12:06 PM EDT 07/17/2025 12:07 PM EDT us Anne Franco MD LAB POINT OF CARE TEST DOCKED DEVICE UNSOLICITED RESULTS Final Result Performing Organization Address City/State/[facility] Co de Phone Number [facility] [address] [place] [address] * US Extremity Limited MSK or Soft [...] Detected Not Detected 07/17/2025 12:11 PM EDT [facility] Swab Both anterior nares / Unknown Non-blood Collection / Unknown 07/17/2025 10:14 AM EDT 07/17/2025 10:33 AM EDT Narrative [facility] - 07/17/2025 12:11 PM [...] MICROBIOLOGY - GENERAL ORDER LUANNE Final Result [facility] [address] [place] [address] * (ABNORMAL) POCT glucose meter (07/17/2025 9:35 AM EDT) POCT Glucose 139(H) 74 - 99 mg/dL 07/17/2025 9:37 AM EDT [facility] Comment:Accuracy of a glucos e [...] Comment 07/17/2025 9:37 AM EDT [facility] Member Of Technical Staff ID Josi Ann 9:37 AM EDT [facility] Device ID [id number] 07/17/2025 9:37 AM EDT [facility] Specimen Type POC Capillary 07/17/2025 9:37 AM EDT [facility] Blood Capillary blood specimen / Unknown 07/17/2025 9:35 AM EDT 07/17/2025 9:37 AM EDT us Anne Franco MD LAB POINT OF CARE TEST DOCKED DEVICE UNSOLICITED RESULTS Final Result [facility] [address] [place] [address] * (ABNORMAL) Basic metabolic panel (07/17/2025 5:20 AM EDT) Glucose, Plasma 140(H) 74 - 99 mg/dL 07/17/2025 5:56 AM EDT [facility] BUN, Plasma 8 7 - 21 mg/dL 07/17/2025 5:56 AM EDT [facility] Creatinine, Plasma 0.59(L) 0.60 - 1.10 mg/dL 07/17/2025 5:56 AM EDT [facility] BUN/Creatinine Ratio 14 07/17/2025 5:56 AM EDT [facility] Sodium, Plasma 139 136 - 145 mmol/L 07/17/2025 5:56 AM EDT [facility] Potassium, Plasma 3.8 3.6 - 4.9 mmol/L 07/17/2025 5:56 AM EDT [facility] Chloride, Plasma 97 97 - 107 mmol/L 07/17/2025 5:56 AM EDT [facility] CO2, Plasma 31(H) 22 - 29 mmol/L 07/17/2025 5:56 AM EDT [facility] Anion Gap 11 6 - 16 mmol/L 07/17/2025 5:56 AM EDT [facility] Total Calcium, Plasma 8.6(L) 8.9 - 10.2 mg/dL 07/17/2025 5:56 AM EDT [facility] eGFRcr 110.6 mL/min/1.7 3m*2 07/17/2025 5:56 AM EDT [facility] Comment:Reported eGFRcr in m L/min/1.73m2 is based the CKD-EPI 2020 equation that does not use a race coefficient. Blood Venous blood specimen / Unknown Venipuncture / Unknown 07/17/2025 5:20 AM EDT 07/17/2025 5:27 AM EDT us Anne Franco MD LAB BLOOD ORDERABLES Sarah l Result [facility] [address] [place] [address] * Phosphorus, Plasma (07/17/2025 5:20 AM EDT) Phosphorus, Plasma 3.0 2.5 - 4.5 mg/dL 07/17/2025 5:56 AM EDT [facility] Blood Venous blood specimen / Unknown Venipuncture / Unknown 07/17/2025 5:20 AM EDT 07/17/2025 5:27 AM EDT us Anne Franco MD LAB BLOOD ORDERABLES Sarah l Result Performing Organization Address City/[facility] Co de Phone Number [facility] [address] [place] [address] * (ABNORMAL) Magnesium, Plasma (07/17/2025 5:20 AM EDT) Magnesium, Plasma 1.8(L) 1.9 - 2.4 mg/dL 07/17/2025 5:56 AM EDT [facility] Blood Venous blood specimen / Unknown Venipuncture / Unknown 07/17/2025 5:20 AM EDT 07/17/2025 5:27 AM EDT us Anne Franco MD LAB BLOOD ORDERABLES Sarah l Result Performing Organization Address City/[facility]/ZIP Co de Phone Number [facility] [address] [place] [address] * (ABNORMAL) CBC W/O Differential (07/17/2025 5:20 AM EDT) [facility] Signature WBC Count 22.29(H) 3.70 - 10.30 10*3/uL LAB HEMATOLOGY METHOD 07/17/2025 5:37 AM EDT [facility] RBC Count 3.36(L) 3.90 - 5.20 10*6/uL LAB HEMATOLOGY METHOD 07/17/2025 5:37 AM EDT [facility] HGB 9.2(L) 11.2 - 15.7 g/dL LAB HEMATOLOGY METHOD 07/17/2025 5:37 AM EDT [facility] HCT 29.4(L) 34.0 - 45.0 % LAB HEMATOLOGY METHOD 07/17/2025 5:37 AM EDT [facility] Platelet Count 484(H) 155 - 369 10*3/uL LAB HEMATOLOGY METHOD 07/17/2025 5:37 AM EDT [facility] MCV 88 79 - 98 fL LAB HEMATOLOGY METHOD 07/17/2025 5:37 AM EDT [facility] MCH 27.4 26.0 - 32.0 pg LAB HEMATOLOGY METHOD 07/17/2025 5:37 AM EDT [facility] MCHC 31.3 30.7 - 35.5 g/dL LAB HEMATOLOGY METHOD 07/17/2025 5:37 AM EDT [facility] RDW 17.3(H) 11.5 - 14.5 % LAB HEMATOLOGY METHOD 07/17/2025 5:37 AM EDT [facility] MPV 10.4 8.8 - 12.5 fL LAB HEMATOLOGY METHOD 07/17/2025 5:37 AM EDT [facility] nRBC 0.1(H) <=0.0 per 100 WBCs LAB HEMATOLOGY METHOD 07/17/2025 5:37 AM EDT [facility] Blood Venous blood specimen / Unknown Venipuncture / Unknown 07/17/2025 5:20 AM EDT 07/17/2025 5:27 AM EDT us Anne Franco MD LAB BLOOD ORDERABLES Sarah bennett Result [facility] [address] [place] [address] * (ABNORMAL) POCT glucose meter (07/16/2025 8:24 PM EDT) [facility] POCT Glucose 162(H) 74 - 99 mg/dL [...] 07/16/2025 8:26 PM EDT [facility] Member Of Technical Staff ID Lacie Marcelo 07/16/20 8:26 PM EDT [facility] Device ID [id number] 07/16/2025 8:26 PM EDT [facility] Specimen Type POC Capillary 07/16/2025 8:26 PM EDT [facility] Blood Capillary blood specimen / Unknown 07/16/2025 8:24 PM EDT 07/16/2025 8:26 PM EDT Anne Franco MD LAB POINT OF CARE TEST DOCKED DEVICE UNSOLICITED RESULTS Final Result [facility] [address] [place] [address] * (ABNORMAL) POCT glucose meter (07/16/2025 5:34 PM EDT) [facility] POCT Glucose 190(H) 74 - 99 mg/dL [...] 07/16/2025 5:36 PM EDT [facility] Member Of Technical Staff ID Diego Munroe 07/16/20 5:36 PM EDT [facility] Device ID [id number] 07/16/2025 5:36 PM EDT [facility] Specimen Type POC Capillary 07/16/2025 5:36 PM EDT [facility] Blood Capillary blood specimen / Unknown 07/16/2025 5:34 PM EDT 07/16/2025 5:36 PM EDT us Anne Franco MD LAB POINT OF CARE TEST DOCKED DEVICE UNSOLICITED RESULTS Final Result Performing Organization Address City/[facility] Co de Phone Number [facility] [address] [place] [address] * (ABNORMAL) POCT glucose meter (07/16/2025 12:06 [...] 07/16/2025 12:08 PM EDT [facility] Member Of Technical Staff ID Diego Munroe 07/16/20 12:08 PM EDT [facility] Device ID [id number] 07/16/2025 12:08 PM EDT [facility] Specimen Type POC Capillary 07/16/2025 12:08 PM EDT [facility] Blood Capillary blood specimen / Unknown 07/16/2025 12:06 PM EDT 07/16/2025 12:08 PM EDT us Anne Franco MD LAB POINT OF CARE TEST DOCKED DEVICE UNSOLICITED RESULTS Final Result Performing Organization Address City/[facility] Co de Phone Number [facility] [address] [place] [address] * XR Chest 1 View (07/16/2025 11:25 [...] - 99 mg/dL 07/16/2025 8:24 AM EDT [facility] Comment:Accuracy of a glucos e [...] for testing. Comment 07/16/2025 8:24 AM EDT [facility] Member Of Technical Staff ID Diego Munroe 07/16/20 8:24 AM EDT [facility] Device ID [id number] 07/16/2025 8:24 AM EDT [facility] Specimen Type POC Capillary 07/16/2025 8:24 AM EDT [facility] Blood Capillary blood specimen / Unknown 07/16/2025 8:22 AM EDT 07/16/2025 8:24 AM EDT us Anne Franco MD LAB POINT OF CARE TEST DOCKED DEVICE UNSOLICITED RESULTS Final Result Performing Organization Address City/State/[facility] de Phone Number [facility] [address] [place] [address] * Phosphorus (07/16/2025 5:25 AM EDT) Phosphorus, Plasma 2.8 2.5 - 4.5 mg/dL 07/16/2025 7:12 AM EDT [facility] Blood Venous blood specimen / Unknown Venipuncture / Unknown 07/16/2025 5:25 AM EDT 07/16/2025 5:33 AM EDT us Anne Franco MD LAB BLOOD ORDERABLES Sarah l Result [facility] [address] [place] [address] * (ABNORMAL) Magnesium (07/16/2025 5:25 AM EDT) Magnesium, Plasma 1.8(L) 1.9 - 2.4 mg/dL 07/16/2025 7:12 AM EDT [facility] Blood Venous blood specimen / Unknown Venipuncture / Unknown 07/16/2025 5:25 AM EDT 07/16/2025 5:33 AM EDT us Anne Franco MD LAB BLOOD ORDERABLES Sarah l Result Performing Organization Address [facility]/ZIP Co de Phone Number [facility] [address] [place] [address] * (ABNORMAL) Basic metabolic panel (07/16/2025 5:25 AM EDT) Glucose, Plasma 149(H) 74 - 99 mg/dL 07/16/2025 6:01 AM EDT [facility] BUN, Plasma 9 7 - 21 mg/dL 07/16/2025 6:01 AM EDT [facility] Creatinine, Plasma 0.48(L) 0.60 - 1.10 mg/dL 07/16/2025 6:01 AM EDT [facility] BUN/Creatinine Ratio 19 07/16/2025 6:01 AM EDT [facility] Sodium, Plasma 140 136 - 145 mmol/L 07/16/2025 6:01 AM EDT [facility] Potassium, Plasma 3.4(L) 3.6 - 4.9 mmol/L 07/16/2025 6:01 AM EDT [facility] Chloride, Plasma 99 97 - 107 mmol/L 07/16/2025 6:01 AM EDT [facility] CO2, Plasma 31(H) 22 - 29 mmol/L 07/16/2025 6:01 AM EDT [facility] Anion Gap 10 6 - 16 mmol/L 07/16/2025 6:01 AM EDT [facility] Total Calcium, Plasma 8.6(L) 8.9 - 10.2 mg/dL 07/16/2025 6:01 AM EDT [facility] eGFRcr 116.3 mL/min/1.7 3m*2 07/16/2025 6:01 AM EDT [facility] Comment:Reported eGFRcr in m L/min/1.73m2 is based the CKD-EPI 2020 equation that does not use a race coefficient. Blood Venous blood specimen / Unknown Venipuncture / Unknown 07/16/2025 5:25 AM EDT 07/16/2025 5:33 AM EDT us Anne Franco MD LAB BLOOD ORDERABLES Sarah bennett Result [facility] [address] [place] [address] * (ABNORMAL) CBC W/O Differential (07/16/2025 5:25 AM EDT) WBC Count 22.22(H) 3.70 - 10.30 10*3/uL LAB HEMATOLOGY METHOD 07/16/2025 5:41 AM EDT [facility] RBC Count 3.30(L) 3.90 - 5.20 10*6/uL LAB HEMATOLOGY METHOD 07/16/2025 5:41 AM EDT [facility] HGB 8.9(L) 11.2 - 15.7 g/dL LAB HEMATOLOGY METHOD 07/16/2025 5:41 AM EDT [facility] HCT 28.9(L) 34.0 - 45.0 % LAB HEMATOLOGY METHOD 07/16/2025 5:41 AM EDT [facility] Platelet Count 376(H) 155 - 369 10*3/uL LAB HEMATOLOGY METHOD 07/16/2025 5:41 AM EDT [facility] MCV 88 79 - 98 fL LAB HEMATOLOGY METHOD 07/16/2025 5:41 AM EDT [facility] MCH 27.0 26.0 - 32.0 pg LAB HEMATOLOGY METHOD 07/16/2025 5:41 AM EDT [facility] MCHC 30.8 30.7 - 35.5 g/dL LAB HEMATOLOGY METHOD 07/16/2025 5:41 AM EDT [facility] RDW 17.2(H) 11.5 - 14.5 % LAB HEMATOLOGY METHOD 07/16/2025 5:41 AM EDT [facility] MPV 10.3 8.8 - 12.5 fL LAB HEMATOLOGY METHOD 07/16/2025 5:41 AM EDT [facility] nRBC 0.1(H) <=0.0 per 100 WBCs LAB HEMATOLOGY METHOD 07/16/2025 5:41 AM EDT [facility] Blood Venous blood specimen / Unknown Venipuncture / Unknown 07/16/2025 5:25 AM EDT 07/16/2025 5:33 AM EDT us Anne Franco MD LAB BLOOD ORDERABLES Sarah l Result [facility] [address] [place] [address] * (ABNORMAL) POCT glucose meter (07/15/2025 9:38 [...] Comment 07/15/2025 9:39 PM EDT [facility] Member Of Technical Staff ID Yessenia Ramirez 9:39 PM EDT [facility] Device ID [id number] 07/15/2025 9:39 PM EDT [facility] Specimen Type POC Capillary 07/15/2025 9:39 PM EDT [facility] Blood Capillary blood specimen / Unknown 07/15/2025 9:38 PM EDT 07/15/2025 9:39 PM EDT us Anne Franco MD LAB POINT OF CARE TEST DOCKED DEVICE UNSOLICITED RESULTS Final Result Performing Organization Address City/[facility]/ZIP Co de Phone Number [facility] [address] [place] [address] * (ABNORMAL) POCT glucose meter (07/15/2025 6:03 PM EDT) [facility] POCT Glucose 234(H) 74 - 99 mg/dL [...] 07/15/2025 6:04 PM EDT [facility] Member Of Technical Staff ID BrennanVenessa 07/15/2025 6:04 PM EDT [facility] Device ID [id number] 07/15/2025 6:04 PM EDT [facility] Specimen Type POC Capillary 07/15/2025 6:04 PM EDT [facility] Blood Capillary blood specimen / Unknown 07/15/2025 6:03 PM EDT 07/15/2025 6:04 PM EDT Anne Franco MD LAB POINT OF CARE TEST DOCKED DEVICE UNSOLICITED RESULTS Final Result Performing Organization Address City/[facility]/ZIP Co de Phone Number [facility] [address] [place] [address] * (ABNORMAL) POCT glucose meter (07/15/2025 12:38 PM EDT) [facility] POCT Glucose 153(H) 74 - 99 mg/dL [...] 07/15/2025 12:40 PM EDT [facility] Member Of Technical Staff PAL BrennanVenessa 07/15/2025 12:40 PM EDT [facility] Device ID [id number] 07/15/2025 12:40 PM EDT [facility] Specimen Type POC Capillary 07/15/2025 12:40 PM EDT [facility] Blood Capillary blood specimen / Unknown 07/15/2025 12:38 PM EDT 07/15/2025 12:40 PM EDT Anne Franco MD LAB POINT OF CARE TEST DOCKED DEVICE UNSOLICITED RESULTS Final Result Performing Organization Address [facility] de Phone Number [facility] [address] [place] [address] * (ABNORMAL) POCT glucose meter (07/15/2025 8:38 AM EDT) [facility] POCT Glucose 132(H) 74 - 99 mg/dL [...] 07/15/2025 8:39 AM EDT [facility] Member Of Technical Staff ID Venessa Amin 07/15/2025 8:39 AM EDT [facility] Device ID [id number] 07/15/2025 8:39 AM EDT [facility] Specimen Type POC Capillary 07/15/2025 8:39 AM EDT [facility] Blood Capillary blood specimen / Unknown 07/15/2025 8:38 AM EDT 07/15/2025 8:39 AM EDT us Anne Franco MD LAB POINT OF CARE TEST DOCKED DEVICE UNSOLICITED RESULTS Final Result Performing Organization Address [facility] de Phone Number [facility] [address] [place] [address] * (ABNORMAL) Phosphorus (07/15/2025 4:50 AM EDT) [facility] Phosphorus, Plasma 2.3(L) 2.5 - 4.5 mg/dL 07/15/2025 7:33 AM EDT [facility] Blood Venous blood specimen / Unknown Venipuncture / Unknown 07/15/2025 4:50 AM EDT 07/15/2025 4:59 AM EDT us Anne Franco MD LAB BLOOD ORDERABLES Sarah l Result Performing Organization Address City/[facility]/ZIP Co de Phone Number [facility] [address] [place] [address] * Magnesium (07/15/2025 4:50 AM EDT) Magnesium, Plasma 1.9 1.9 - 2.4 mg/dL 07/15/2025 7:33 AM EDT [facility] Blood Venous blood specimen / Unknown Venipuncture / Unknown 07/15/2025 4:50 AM EDT 07/15/2025 4:59 AM EDT Anne Franco MD LAB BLOOD ORDERABLES Sarah l Result [facility] [address] [place] [address] * (ABNORMAL) Basic metabolic panel (07/15/2025 4:50 AM EDT) Glucose, Plasma 150(H) 74 - 99 mg/dL 07/15/2025 5:31 AM EDT [facility] BUN, Plasma 11 7 - 21 mg/dL 07/15/2025 5:31 AM EDT [facility] Creatinine, Plasma 0.54(L) 0.60 - 1.10 mg/dL 07/15/2025 5:31 AM EDT [facility] BUN/Creatinine Ratio 20 07/15/2025 5:31 AM EDT [facility] Sodium, Plasma 136 136 - 145 mmol/L 07/15/2025 5:31 AM EDT [facility] Potassium, Plasma 4.1 3.6 - 4.9 mmol/L 07/15/2025 5:31 AM EDT [facility] Chloride, Plasma 95(L) 97 - 107 mmol/L 07/15/2025 5:31 AM EDT [facility] CO2, Plasma 32(H) 22 - 29 mmol/L 07/15/2025 5:31 AM EDT [facility] Anion Gap 9 6 - 16 mmol/L 07/15/2025 5:31 AM EDT [facility] Total Calcium, Plasma 8.8(L) 8.9 - 10.2 mg/dL 07/15/2025 5:31 AM EDT [facility] eGFRcr 113.0 mL/min/1.7 3m*2 07/15/2025 5:31 AM EDT [facility] Comment:Reported eGFRcr in m L/min/1.73m2 is based the CKD-EPI 2020 equation that does not use a race coefficient. Blood Venous blood specimen / Unknown Venipuncture / Unknown 07/15/2025 4:50 AM EDT 07/15/2025 4:59 AM EDT us Anne Franco MD LAB BLOOD ORDERABLES Sarah bennett Result [facility] [address] [place] [address] * (ABNORMAL) POCT glucose meter (07/14/2025 7:57 PM EDT) [facility] POCT Glucose 175(H) 74 - 99 mg/dL [...] Comment 07/14/2025 7:58 PM EDT [facility] Member Of Technical Staff ID Bernard Chirinos 07/14/20 7:58 PM EDT [facility] Device ID [id number] 07/14/2025 7:58 PM EDT [facility] Specimen Type POC Capillary 07/14/2025 7:58 PM EDT [facility] Blood Capillary blood specimen / Unknown 07/14/2025 7:57 PM EDT 07/14/2025 7:58 PM EDT Anne Franco MD LAB POINT OF CARE TEST DOCKED DEVICE UNSOLICITED RESULTS Final Result Performing Organization Address [facility] Co de Phone Number [facility] [address] [place] [address] * (ABNORMAL) POCT glucose meter (07/14/2025 4:56 PM EDT) [facility] POCT Glucose 154(H) 74 - 99 mg/dL [...] Comment 07/14/2025 4:58 PM EDT [facility] Member Of Technical Staff ID Riana Higgins 07/14/2025 4:58 PM EDT [facility] Device ID [id number] 07/14/2025 4:58 PM EDT [facility] Specimen Type POC Capillary 07/14/2025 4:58 PM EDT [facility] Blood Capillary blood specimen / Unknown 07/14/2025 4:56 PM EDT 07/14/2025 4:58 PM EDT Anne Franco MD LAB POINT OF CARE TEST DOCKED DEVICE UNSOLICITED RESULTS Final Result Performing Organization Address City/[facility] Co de Phone Number [facility] [address] [place] [address] * (ABNORMAL) POCT glucose meter (07/14/2025 12:38 PM EDT) [facility] POCT Glucose 143(H) 74 - 99 mg/dL [...] Comment 07/14/2025 12:39 PM EDT [facility] Member Of Technical Staff ID Laura Baez 025 12:39 PM EDT [facility] Device ID [id number] 07/14/2025 12:39 PM EDT [facility] Specimen Type POC Capillary 07/14/2025 12:39 PM EDT [facility] Blood Capillary blood specimen / Unknown 07/14/2025 12:38 PM EDT 07/14/2025 12:39 PM EDT us Anne Franco MD LAB POINT OF CARE TEST DOCKED DEVICE UNSOLICITED RESULTS Final Result [facility] [address] [place] [address] * (ABNORMAL) Basic metabolic panel (07/14/2025 9:36 AM EDT) Glucose, Plasma 191(H) 74 - 99 mg/dL 07/14/2025 10:15 AM EDT [facility] BUN, Plasma 16 7 - 21 mg/dL 07/14/2025 10:15 AM EDT [facility] Creatinine, Plasma 0.61 0.60 - 1.10 mg/dL 07/14/2025 10:15 AM EDT [facility] BUN/Creatinine Ratio 26 07/14/2025 10:15 AM EDT [facility] Sodium, Plasma 138 136 - 145 mmol/L 07/14/2025 10:15 AM EDT [facility] Potassium, Plasma 3.2(L) 3.6 - 4.9 mmol/L 07/14/2025 10:15 AM EDT [facility] Chloride, Plasma 96(L) 97 - 107 mmol/L 07/14/2025 10:15 AM EDT [facility] CO2, Plasma 33(H) 22 - 29 mmol/L 07/14/2025 10:15 AM EDT [facility] Anion Gap 9 6 - 16 mmol/L 07/14/2025 10:15 AM EDT [facility] Total Calcium, Plasma 8.7(L) 8.9 - 10.2 mg/dL 07/14/2025 10:15 AM EDT [facility] eGFRcr 109.8 mL/min/1.7 3m*2 07/14/2025 10:15 AM EDT [facility] Comment:Reported eGFRcr in m L/min/1.73m2 is based the CKD-EPI 2020 equation that does not use a race coefficient. Blood Venous blood specimen / Unknown Venipuncture / Unknown 07/14/2025 9:36 AM EDT 07/14/2025 9:44 AM EDT us Anne Franco MD LAB BLOOD ORDERABLES Sarah l Result Performing Organization Address City/[facility] Co de Phone Number [facility] [address] [place] [address] * (ABNORMAL) Magnesium, Plasma (07/14/2025 9:36 AM EDT) Magnesium, Plasma 1.7(L) 1.9 - 2.4 mg/dL 07/14/2025 10:15 AM EDT [facility] Blood Venous blood specimen / Unknown Venipuncture / Unknown 07/14/2025 9:36 AM EDT 07/14/2025 9:44 AM EDT us Anne Franco MD LAB BLOOD ORDERABLES Sarah l Result [facility] [address] [place] [address] * (ABNORMAL) Phosphorus, Plasma (07/14/2025 9:36 AM EDT) Phosphorus, Plasma 2.2(L) 2.5 - 4.5 mg/dL 07/14/2025 10:15 AM EDT [facility] Blood Venous blood specimen / Unknown Venipuncture / Unknown 07/14/2025 9:36 AM EDT 07/14/2025 9:44 AM EDT us Anne Franco MD LAB BLOOD ORDERABLES Sarah sabrina Result [facility] [address] [place] [address] * (ABNORMAL) CBC W/O Differential (07/14/2025 9:36 AM EDT) WBC Count 21.20(H) 3.70 - 10.30 10*3/uL LAB HEMATOLOGY METHOD 07/14/2025 9:52 AM EDT [facility] RBC Count 3.37(L) 3.90 - 5.20 10*6/uL LAB HEMATOLOGY METHOD 07/14/2025 9:52 AM EDT [facility] HGB 9.2(L) 11.2 - 15.7 g/dL LAB HEMATOLOGY METHOD 07/14/2025 9:52 AM EDT [facility] HCT 29.4(L) 34.0 - 45.0 % LAB HEMATOLOGY METHOD 07/14/2025 9:52 AM EDT [facility] Platelet Count 314 155 - 369 10*3/uL LAB HEMATOLOGY METHOD 07/14/2025 9:52 AM EDT [facility] MCV 87 79 - 98 fL LAB HEMATOLOGY METHOD 07/14/2025 9:52 AM EDT [facility] MCH 27.3 26.0 - 32.0 pg LAB HEMATOLOGY METHOD 07/14/2025 9:52 AM EDT [facility] MCHC 31.3 30.7 - 35.5 g/dL LAB HEMATOLOGY METHOD 07/14/2025 9:52 AM EDT [facility] RDW 17.2(H) 11.5 - 14.5 % LAB HEMATOLOGY METHOD 07/14/2025 9:52 AM EDT [facility] MPV 10.2 8.8 - 12.5 fL LAB HEMATOLOGY METHOD 07/14/2025 9:52 AM EDT [facility] nRBC 0.1(H) <=0.0 per 100 WBCs LAB HEMATOLOGY METHOD 07/14/2025 9:52 AM EDT [facility] Blood Venous blood specimen / Unknown Venipuncture / Unknown 07/14/2025 9:36 AM EDT 07/14/2025 9:44 AM EDT us Anne Franco MD LAB BLOOD ORDERABLES Sarah l Result Performing Organization Address City/[facility] Co de Phone Number [facility] [address] [place] [address] * (ABNORMAL) POCT glucose meter (07/14/2025 8:39 [...] for testing. Comment 07/14/2025 8:41 AM EDT [facility] Member Of Technical Staff ID Laura Baez 025 8:41 AM EDT [facility] Device ID [id number] 07/14/2025 8:41 AM EDT [facility] Specimen Type POC Capillary 07/14/2025 8:41 AM EDT [facility] Blood Capillary blood specimen / Unknown 07/14/2025 8:39 AM EDT 07/14/2025 8:41 AM EDT us Anne Franco MD LAB POINT OF CARE TEST DOCKED DEVICE UNSOLICITED RESULTS Final Result Performing Organization Address City/[facility] Co de Phone Number [facility] [address] [place] [address] * (ABNORMAL) POCT glucose meter (07/14/2025 6:18 [...] 07/14/2025 6:20 AM EDT [facility] Member Of Technical Staff ID Rita Alejandro 6:20 AM EDT [facility] Device ID [id number] 07/14/2025 6:20 AM EDT [facility] Specimen Type POC Capillary 07/14/2025 6:20 AM EDT [facility] Blood Capillary blood specimen / Unknown 07/14/2025 6:18 AM EDT 07/14/2025 6:20 AM EDT us Anne Franco MD LAB POINT OF CARE TEST DOCKED DEVICE UNSOLICITED RESULTS Final Result Performing Organization Address [facility] de Phone Number [facility] [address] [place] [address] * (ABNORMAL) POCT glucose meter (07/13/2025 9:18 PM EDT) [facility] POCT Glucose 196(H) 74 - 99 mg/dL [...] 07/13/2025 9:19 PM EDT [facility] Member Of Technical Staff ID Yenny Tong 025 9:19 PM EDT [facility] Device ID [id number] 07/13/2025 9:19 PM EDT [facility] Specimen Type POC Capillary 07/13/2025 9:19 PM EDT [facility] Blood Capillary blood specimen / Unknown 07/13/2025 9:18 PM EDT 07/13/2025 9:19 PM EDT us Anne Franco MD LAB POINT OF CARE TEST DOCKED DEVICE UNSOLICITED RESULTS Final Result Performing Organization Address City/[facility] Co de Phone Number [facility] [address] [place] [address] * (ABNORMAL) POCT glucose meter (07/13/2025 6:01 PM EDT) [facility] POCT Glucose 128(H) 74 - 99 mg/dL [...] Comment 07/13/2025 6:02 PM EDT [facility] Member Of Technical Staff ID Laura Baez 025 6:02 PM EDT [facility] LAB Device ID [id number] 07/13/2025 6:02 PM EDT [facility] Specimen Type POC Capillary 07/13/2025 6:02 PM EDT [facility] Blood Capillary blood specimen / Unknown 07/13/2025 6:01 PM EDT 07/13/2025 6:02 PM EDT Anne Franco MD LAB POINT OF CARE TEST DOCKED DEVICE UNSOLICITED RESULTS Final Result [facility] [address] [place] [address] * (ABNORMAL) POCT glucose meter (07/13/2025 12:12 PM EDT) [facility] POCT Glucose 139(H) 74 - 99 mg/dL [...] Comment 07/13/2025 12:14 PM EDT [facility] Member Of Technical Staff ID Laura Baez 025 12:14 PM EDT [facility] Device ID [id number] 07/13/2025 12:14 PM EDT [facility] Specimen Type POC Capillary 07/13/2025 12:14 PM EDT [facility] Blood Capillary blood specimen / Unknown 07/13/2025 12:12 PM EDT 07/13/2025 12:14 PM EDT Anne Franco MD LAB POINT OF CARE TEST DOCKED DEVICE UNSOLICITED RESULTS Final Result [facility] [address] [place] [address] * (ABNORMAL) Phosphorus (07/13/2025 10:21 AM EDT) Phosphorus, Plasma 2.2(L) 2.5 - 4.5 mg/dL 07/13/2025 11:23 AM EDT [facility] Blood Venous blood specimen / Unknown Venipuncture / Unknown 07/13/2025 10:21 AM EDT 07/13/2025 10:31 AM EDT us Luanne Crawford MD LAB BLOOD ORDERABLES Final Result Performing Organization Address City/[facility]/[place] [address] * (ABNORMAL) Magnesium, Plasma (07/13/2025 10:21 AM EDT) Magnesium, Plasma 1.7(L) 1.9 - 2.4 mg/dL 07/13/2025 11:23 AM EDT [facility] Blood Venous blood specimen / Unknown Venipuncture / Unknown 07/13/2025 10:21 AM EDT 07/13/2025 10:31 AM EDT us Luanne Crawford MD LAB BLOOD ORDERABLES Final Result Performing Organization Address City/[facility]/ZIP Co de Phone Number [facility] [address] [place] [address] * (ABNORMAL) Basic Metabolic Panel, Plasma (07/13/2025 10:21 AM EDT) Glucose, Plasma 135(H) 74 - 99 mg/dL 07/13/2025 11:23 AM EDT [facility] BUN, Plasma 22(H) 7 - 21 mg/dL 07/13/2025 11:23 AM EDT [facility] Creatinine, Plasma 0.62 0.60 - 1.10 mg/dL 07/13/2025 11:23 AM EDT [facility] BUN/Creatinine Ratio 35 07/13/2025 11:23 AM EDT [facility] Sodium, Plasma 138 136 - 145 mmol/L 07/13/2025 11:23 AM EDT [facility] Potassium, Plasma 3.7 3.6 - 4.9 mmol/L 07/13/2025 11:23 AM EDT [facility] Chloride, Plasma 95(L) 97 - 107 mmol/L 07/13/2025 11:23 AM EDT [facility] CO2, Plasma 30(H) 22 - 29 mmol/L 07/13/2025 11:23 AM EDT [facility] Anion Gap 13 6 - 16 mmol/L 07/13/2025 11:23 AM EDT [facility] Total Calcium, Plasma 9.0 8.9 - 10.2 mg/dL 07/13/2025 11:23 AM EDT [facility] eGFRcr 109.3 mL/min/1.7 3m*2 07/13/2025 11:23 AM EDT [facility] Comment:Reported eGFRcr in m L/min/1.73m2 is based the CKD-EPI 2020 equation that does not use a race coefficient. Blood Venous blood specimen / Unknown Venipuncture / Unknown 07/13/2025 10:21 AM EDT 07/13/2025 10:31 AM EDT us Luanne Crawford MD LAB BLOOD ORDERABLES Final Result [facility] [address] [place] [address] * (ABNORMAL) CBC W/O Differential (07/13/2025 10:21 AM EDT) WBC Count 19.56(H) 3.70 - 10.30 10*3/uL LAB HEMATOLOGY METHOD 07/13/2025 10:59 AM EDT [facility] RBC Count 3.67(L) 3.90 - 5.20 10*6/uL LAB HEMATOLOGY METHOD 07/13/2025 10:59 AM EDT [facility] HGB 10.2(L) 11.2 - 15.7 g/dL LAB HEMATOLOGY METHOD 07/13/2025 10:59 AM EDT [facility] HCT 32.3(L) 34.0 - 45.0 % LAB HEMATOLOGY METHOD 07/13/2025 10:59 AM EDT [facility] Platelet Count 296 155 - 369 10*3/uL LAB HEMATOLOGY METHOD 07/13/2025 10:59 AM EDT [facility] MCV 88 79 - 98 fL LAB HEMATOLOGY METHOD 07/13/2025 10:59 AM EDT [facility] MCH 27.8 26.0 - 32.0 pg LAB HEMATOLOGY METHOD 07/13/2025 10:59 AM EDT [facility] MCHC 31.6 30.7 - 35.5 g/dL LAB HEMATOLOGY METHOD 07/13/2025 10:59 AM EDT [facility] RDW 17.6(H) 11.5 - 14.5 % LAB HEMATOLOGY METHOD 07/13/2025 10:59 AM EDT [facility] MPV 10.3 8.8 - 12.5 fL LAB HEMATOLOGY METHOD 07/13/2025 10:59 AM EDT [facility] nRBC 0.0 <=0.0 per 100 WBCs LAB HEMATOLOGY METHOD 07/13/2025 10:59 AM EDT [facility] Blood Venous blood specimen / Unknown Venipuncture / Unknown 07/13/2025 10:21 AM EDT 07/13/2025 10:31 AM EDT us Luanne Crawford MD LAB BLOOD ORDERABLES Final Result [facility] [address] [place] [address] * (ABNORMAL) POCT glucose meter (07/13/2025 8:50 [...] Comment 07/13/2025 8:53 AM EDT [facility] Member Of Technical Staff ID Laura Baez 025 8:53 AM EDT [facility]ARE LAB Device ID [id number] 07/13/2025 8:53 AM EDT [facility] LAB Specimen Type POC Capillary 07/13/2025 8:53 AM EDT [facility] Blood Capillary blood specimen / Unknown 07/13/2025 8:50 AM EDT 07/13/2025 8:53 AM EDT Anne Franco MD LAB POINT OF CARE TEST DOCKED DEVICE UNSOLICITED RESULTS Final Result [facility] [address] [place] [address] * (ABNORMAL) POCT glucose meter (07/13/2025 6:11 AM EDT) Pathologist [facility] POCT Glucose 111(H) 74 - 99 [...] Comment 07/13/2025 6:13 AM EDT [facility]ARE LAB Member Of Technical Staff ID Rita Alejandro 6:13 AM EDT [facility]ALTH[facility]ARE LAB Device ID [id number] 07/13/2025 6:13 AM EDT [facility] Specimen Type POC Capillary 07/13/2025 6:13 AM EDT [facility] Blood Capillary blood specimen / Unknown 07/13/2025 6:11 AM EDT 07/13/2025 6:13 AM EDT Anne Franco MD LAB POINT OF CARE TEST DOCKED DEVICE UNSOLICITED RESULTS Final Result Performing Organization Address [facility] Co de Phone Number [facility]ARE [facility] [address] [place] [address] * (ABNORMAL) POCT glucose meter (07/12/2025 9:28 PM EDT) [facility] POCT Glucose 107(H) 74 - 99 mg/dL [...] Comment 07/12/2025 9:30 PM EDT HEALTHCARE LAB Member Of Technical Staff ID Yenny Tong 025 9:30 PM EDT HEALTHCARE LAB Device ID [id number] 07/12/2025 9:30 PM EDT [facility] Specimen Type POC Capillary 07/12/2025 9:30 PM EDT [facility] Blood Capillary blood specimen / Unknown 07/12/2025 9:28 PM EDT 07/12/2025 9:30 PM EDT Anne Franco MD LAB POINT OF CARE TEST DOCKED DEVICE UNSOLICITED RESULTS Final Result Performing Organization Address City/[facility] Co de Phone Number [facility] [address] [place] [address] * (ABNORMAL) POCT glucose meter (07/12/2025 6:04 PM EDT) [facility] POCT Glucose 129(H) 74 - 99 mg/dL [...] Comment 07/12/2025 6:06 PM EDT HEALTHCARE LAB Member Of Technical Staff ID Jeana Bear 07/12/2025 6:06 PM EDT HEALTH[facility]ARE LAB Device ID [id number] 07/12/2025 6:06 PM EDT [facility] Specimen Type POC Capillary 07/12/2025 6:06 PM EDT [facility] Blood Capillary blood specimen / Unknown 07/12/2025 6:04 PM EDT 07/12/2025 6:06 PM EDT Anne Franco MD LAB POINT OF CARE TEST DOCKED DEVICE UNSOLICITED RESULTS Final Result Performing Organization Address City/State/[facility] Co de Phone Number [facility] [address] [place] [address] * PERIPHERAL IV (SMARTFORM LINK) (07/12/2025 3:51 [...] Comment 07/12/2025 11:56 AM EDT [facility]ALTH[facility]ARE LAB Member Of Technical Staff ID Jeana Bear 07/12/2025 11:56 AM EDT [facility]ARE LAB Device ID [id number] 07/12/2025 11:56 AM EDT [facility] Specimen Type POC Capillary 07/12/2025 11:56 AM EDT [facility] Blood Capillary blood specimen / Unknown 07/12/2025 11:55 AM EDT 07/12/2025 11:56 AM EDT Dorcas Hennessy MD LAB POINT OF CARE TE ST DOCKED DEVICE UNSOLICITED RESULTS Final Result Performing Organization Address City/State/[facility] Co de Phone Number [facility] [address] [place] [address] * XR Chest 1 View (07/12/2025 11:11 [...] Comment 07/12/2025 8:42 AM EDT [facility]ARE LAB Member Of Technical Staff ID Jeana Bear 07/12/2025 8:42 AM EDT [facility] Device ID [id number] 07/12/2025 8:42 AM EDT [facility]ARE LAB Specimen Type POC Capillary 07/12/2025 8:42 AM EDT [facility] Blood Capillary blood specimen / Unknown 07/12/2025 8:41 AM EDT 07/12/2025 8:42 AM EDT Dorcas Hennessy MD LAB POINT OF CARE TE ST DOCKED DEVICE UNSOLICITED RESULTS Final Result [facility] [address] [place] [address] * Phosphorus (07/12/2025 12:25 AM EDT) Phosphorus, Plasma 2.9 2.5 - 4.5 mg/dL 07/12/2025 1:22 AM EDT [facility] Blood Venous blood specimen / Unknown Venipuncture / Unknown 07/12/2025 12:25 AM EDT 07/12/2025 12:52 AM EDT us Luanne Crawfodr MD LAB BLOOD ORDERABLES Final Result Performing Organization Address City/[facility]/ZIP Co de Phone Number [facility] [address] [place] [address] * Magnesium, Plasma (07/12/2025 12:25 AM EDT) Magnesium, Plasma 2.0 1.9 - 2.4 mg/dL 07/12/2025 1:22 AM EDT [facility] Blood Venous blood specimen / Unknown Venipuncture / Unknown 07/12/2025 12:25 AM EDT 07/12/2025 12:52 AM EDT Luanne Crawford MD LAB BLOOD ORDERABLES Final Result Performing Organization Address City/[facility]/ZIP Co de Phone Number [facility] [address] [place] [address] * (ABNORMAL) Basic Metabolic Panel, Plasma (07/12/2025 12:25 AM EDT) Glucose, Plasma 92 74 - 99 mg/dL 07/12/2025 1:22 AM EDT [facility] BUN, Plasma 18 7 - 21 mg/dL 07/12/2025 1:22 AM EDT [facility] Creatinine, Plasma 0.84 0.60 - 1.10 mg/dL 07/12/2025 1:22 AM EDT [facility] BUN/Creatinine Ratio 21 07/12/2025 1:22 AM EDT [facility] Sodium, Plasma 142 136 - 145 mmol/L 07/12/2025 1:22 AM EDT [facility] Potassium, Plasma 3.6 3.6 - 4.9 mmol/L 07/12/2025 1:22 AM EDT [facility] Chloride, Plasma 103 97 - 107 mmol/L 07/12/2025 1:22 AM EDT [facility] CO2, Plasma 31(H) 22 - 29 mmol/L 07/12/2025 1:22 AM EDT [facility] Anion Gap 8 6 - 16 mmol/L 07/12/2025 1:22 AM EDT [facility] Total Calcium, Plasma 8.8(L) 8.9 - 10.2 mg/dL 07/12/2025 1:22 AM EDT [facility] eGFRcr 85.3 mL/min/1.7 3m*2 07/12/2025 1:22 AM EDT [facility] Comment:Reported eGFRcr in m L/min/1.73m2 is based the CKD-EPI 2020 equation that does not use a race coefficient. Blood Venous blood specimen / Unknown Venipuncture / Unknown 07/12/2025 12:25 AM EDT 07/12/2025 12:52 AM EDT us Luanne Crawford MD LAB BLOOD ORDERABLES Final Result [facility] [address] [place] [address] * (ABNORMAL) CBC W/O Differential (07/12/2025 12:25 AM EDT) WBC Count 15.81(H) 3.70 - 10.30 10*3/uL LAB HEMATOLOGY METHOD 07/12/2025 1:05 AM EDT [facility] RBC Count 3.39(L) 3.90 - 5.20 10*6/uL LAB HEMATOLOGY METHOD 07/12/2025 1:05 AM EDT [facility] HGB 9.3(L) 11.2 - 15.7 g/dL LAB HEMATOLOGY METHOD 07/12/2025 1:05 AM EDT [facility] HCT 29.8(L) 34.0 - 45.0 % LAB HEMATOLOGY METHOD 07/12/2025 1:05 AM EDT [facility] Platelet Count 276 155 - 369 10*3/uL LAB HEMATOLOGY METHOD 07/12/2025 1:05 AM EDT [facility] MCV 88 79 - 98 fL LAB HEMATOLOGY METHOD 07/12/2025 1:05 AM EDT [facility] MCH 27.4 26.0 - 32.0 pg LAB HEMATOLOGY METHOD 07/12/2025 1:05 AM EDT [facility] MCHC 31.2 30.7 - 35.5 g/dL LAB HEMATOLOGY METHOD 07/12/2025 1:05 AM EDT [facility] RDW 18.0(H) 11.5 - 14.5 % LAB HEMATOLOGY METHOD 07/12/2025 1:05 AM EDT [facility] MPV 10.5 8.8 - 12.5 fL LAB HEMATOLOGY METHOD 07/12/2025 1:05 AM EDT [facility] nRBC 0.0 <=0.0 per 100 WBCs LAB HEMATOLOGY METHOD 07/12/2025 1:05 AM EDT [facility] Blood Venous blood specimen / Unknown Venipuncture / Unknown 07/12/2025 12:25 AM EDT 07/12/2025 12:55 AM EDT us Luanne Crawford MD LAB BLOOD ORDERABLES Final Result Performing Organization Address City/[facility]/ZIP Co de Phone Number [facility] [address] [place] [address] * (ABNORMAL) POCT Glucose (if patient NPO, on TPN or continuous nutrition) (07/11/2025 8:45 PM EDT) Pathologist [facility] POCT Glucose 119(A) 74 - 99 mg/dL [facility] Test Strip Lot Number \[id number]\ HEALTHCARE LAB Test Strip Expiration 09/24/2026 [facility] Blood Venous blood specimen / Unknown 07/11/2025 8:45 PM EDT us Dorcas Hennessy MD POINT OF CARE TEST ENTER/EDIT OR DERABLES Final Result [facility] [address] [place] [address] * (ABNORMAL) POCT Glucose - Before Meals and Bedtime (07/11/2025 8:43 PM EDT) POCT Glucose 119(A) 74 - 99 mg/dL [facility] Test Strip Lot Number [id number] [facility] Test Strip Expiration 09/24/2026 [facility] Blood Venous blood specimen / Unknown 07/11/2025 8:43 PM EDT us Dorcas Hennessy MD POINT OF CARE TEST ENTER/EDIT OR DERABLES Final Result Performing Organization Address [facility] Co de Phone Number [facility]ARE [facility] [address] [place] [address] * (ABNORMAL) POCT glucose meter (07/11/2025 8:42 PM EDT) Pathologist [facility] POCT Glucose 119(H) 74 - 99 [...] Comment 07/11/2025 8:43 PM EDT [facility]ARE LAB Member Of Technical Staff ID Jf Cruz 07/11/2025 8:43 PM EDT [facility]ARE LAB Device ID [id number] 07/11/2025 8:43 PM EDT [facility] Specimen Type POC Capillary 07/11/2025 8:43 PM EDT [facility] Blood Capillary blood specimen / Unknown 07/11/2025 8:42 PM EDT 07/11/2025 8:43 PM EDT us Dorcas Hennessy MD LAB POINT OF CARE TE ST DOCKED DEVICE UNSOLICITED RESULTS Final Result Performing Organization Address City/[facility]/ZIP Co de Phone Number [facility] [address] [place] [address] * (ABNORMAL) POCT glucose meter (07/11/2025 5:38 PM EDT) Pathologist [facility] POCT Glucose 142(H) 74 - 99 [...] 07/11/2025 5:40 PM EDT [facility] Member Of Technical Staff ID Ayana Amato 07/11/2025 5:40 PM EDT [facility] Device ID [id number] 07/11/2025 5:40 PM EDT [facility] Specimen Type POC Capillary 07/11/2025 5:40 PM EDT [facility] Blood Capillary blood specimen / Unknown 07/11/2025 5:38 PM EDT 07/11/2025 5:40 PM EDT us Dorcas Hennessy MD LAB POINT OF CARE TE ST DOCKED DEVICE UNSOLICITED RESULTS Final Result Performing Organization Address City/[facility] Phone Number [facility]ARE [facility] [address] [place] [address] * (ABNORMAL) POCT glucose meter (07/11/2025 3:36 PM EDT) [facility] POCT Glucose 144(H) 74 - 99 mg/dL [...] 07/11/2025 3:38 PM EDT [facility] Member Of Technical Staff ID Radha Frias 07/11/20 3:38 PM EDT [facility] Device ID [id number] 07/11/2025 3:38 PM EDT [facility] Specimen Type POC Venous 07/11/2025 3:38 PM EDT [facility] Blood Venous blood specimen / Unknown 07/11/2025 3:36 PM EDT 07/11/2025 3:38 PM EDT us Dorcas Hennessy MD LAB POINT OF CARE TE ST DOCKED DEVICE UNSOLICITED RESULTS Final Result [facility] [address] [place] [address] * (ABNORMAL) POCT glucose meter (07/11/2025 1:52 PM EDT) [facility] POCT Glucose 140(H) 74 - 99 mg/dL [...] 07/11/2025 1:54 PM EDT [facility] Member Of Technical Staff ID [email or web address] 07/11/2025 1:54 PM EDT [facility] Device ID [id number] 07/11/2025 1:54 PM EDT [facility] Specimen Type POC Capillary 07/11/2025 1:54 PM EDT [facility] Blood Capillary blood specimen / Unknown 07/11/2025 1:52 PM EDT 07/11/2025 1:54 PM EDT Dorcas Hennessy MD LAB POINT OF CARE TE ST DOCKED DEVICE UNSOLICITED RESULTS Final Result [facility] [address] [place] [address] * (ABNORMAL) POCT glucose meter (07/11/2025 12:12 PM EDT) [facility] POCT Glucose 154(H) 74 - 99 mg/dL [...] 07/11/2025 12:13 PM EDT [facility] Member Of Technical Staff ID Ayana Amato 07/11/2025 12:13 PM EDT [facility] Device ID [id number] 07/11/2025 12:13 PM EDT [facility] Specimen Type POC Capillary 07/11/2025 12:13 PM EDT [facility] Blood Capillary blood specimen / Unknown 07/11/2025 12:12 PM EDT 07/11/2025 12:13 PM EDT us Luanne Crawford MD LAB POINT OF CARE TEST DOCKED DEVICE UNSOLICITED RESULTS Final Result Performing Organization Address [facility] Co de Phone Number [facility] [address] [place] [address] * (ABNORMAL) POCT glucose meter (07/11/2025 9:57 AM EDT) [facility] POCT Glucose 135(H) 74 - 99 mg/dL [...] 07/11/2025 9:59 AM EDT [facility] Member Of Technical Staff ID Ayana Amato 07/11/2025 9:59 AM EDT [facility] Device ID [id number] 07/11/2025 9:59 AM EDT [facility]ARE [facility] Specimen Type POC Capillary 07/11/2025 9:59 AM EDT [facility] Blood Capillary blood specimen / Unknown 07/11/2025 9:57 AM EDT 07/11/2025 9:59 AM EDT us Luanne Crawford MD LAB POINT OF CARE TEST DOCKED DEVICE UNSOLICITED RESULTS Final Result Performing Organization Address [facility] Co de Phone Number [facility] [address] [place] [address] * RI CRITICAL CARE, E/M 30-74 MINUTES (07/11/2025 8:41 AM EDT) Narrative Dorcas Hennessy MD - 07/11/2025 8:41 AM EDDorcas Barkley MD 07/18/2025 7:23 PM Critical Care Performed [...] POCT glucose meter (07/11/2025 8:13 AM EDT) [facility] POCT Glucose 140(H) 74 - 99 mg/dL 07/11/2025 8:15 AM EDT [facility] Comment:Accuracy of a glucos e result [...] for testing. Comment 07/11/2025 8:15 AM EDT [facility] Member Of Technical Staff ID Ayana Amato 07/11/2025 8:15 AM EDT HEALTHCARE LAB Device ID [id number] 07/11/2025 8:15 AM EDT [facility] Specimen Type POC Capillary 07/11/2025 8:15 AM EDT [facility] Blood Capillary blood specimen / Unknown 07/11/2025 8:13 AM EDT 07/11/2025 8:15 AM EDT Luanne Crawford MD LAB POINT OF CARE TEST DOCKED DEVICE UNSOLICITED RESULTS Final Result Performing Organization Address City/[facility] Co de Phone Number [facility] [address] [place] [address] * (ABNORMAL) POCT glucose meter (07/11/2025 6:03 [...] for testing. Comment 07/11/2025 6:05 AM EDT [facility] Member Of Technical Staff ID Cheyanne Briceño 07/11/2025 6:05 AM EDT [facility]ALTH[facility]ARE LAB Device ID [id number] 07/11/2025 6:05 AM EDT [facility] Specimen Type POC Capillary 07/11/2025 6:05 AM EDT [facility] Blood Capillary blood specimen / Unknown 07/11/2025 6:03 AM EDT 07/11/2025 6:05 AM EDT us Luanne Crawford MD LAB POINT OF CARE TEST DOCKED DEVICE UNSOLICITED RESULTS Final Result Performing Organization Address City/[facility] Co de Phone Number [facility] [address] [place] [address] * (ABNORMAL) POCT glucose meter (07/11/2025 4:04 [...] 07/11/2025 4:06 AM EDT [facility] Member Of Technical Staff ID Cheyanne Briceño 07/11/2025 4:06 AM EDT [facility]ARE LAB Device ID [id number] 07/11/2025 4:06 AM EDT [facility] Specimen Type POC Capillary 07/11/2025 4:06 AM EDT [facility] Blood Capillary blood specimen / Unknown 07/11/2025 4:04 AM EDT 07/11/2025 4:06 AM EDT Luanne Crawford MD LAB POINT OF CARE TEST DOCKED DEVICE UNSOLICITED RESULTS Final Result [facility] [address] [place] [address] * (ABNORMAL) POCT glucose meter (07/11/2025 2:02 AM EDT) [facility] POCT Glucose 130(H) 74 - 99 mg/dL [...] 07/11/2025 2:03 AM EDT [facility] Member Of Technical Staff ID Cheyanne Briceño 07/11/2025 2:03 AM EDT [facility] LAB Device ID [id number] 07/11/2025 2:03 AM EDT [facility] Specimen Type POC Capillary 07/11/2025 2:03 AM EDT [facility] Blood Capillary blood specimen / Unknown 07/11/2025 2:02 AM EDT 07/11/2025 2:03 AM EDT us Luanne Crawford MD LAB POINT OF CARE TEST DOCKED DEVICE UNSOLICITED RESULTS Final Result Performing Organization Address City/[facility]/ZIP Co de Phone Number [facility] [address] [place] [address] * Phosphorus (07/11/2025 12:09 AM EDT) Phosphorus, Plasma 3.7 2.5 - 4.5 mg/dL 07/11/2025 12:54 AM EDT [facility] Blood Venous blood specimen / Unknown Venipuncture / Unknown 07/11/2025 12:09 AM EDT 07/11/2025 12:26 AM EDT Luanne Crawford MD LAB BLOOD ORDERABLES Final Result Performing Organization Address [facility] Co de Phone Number [facility] [address] [place] [address] * (ABNORMAL) Magnesium, Plasma (07/11/2025 12:09 AM EDT) Magnesium, Plasma 1.8(L) 1.9 - 2.4 mg/dL 07/11/2025 12:54 AM EDT [facility] Blood Venous blood specimen / Unknown Venipuncture / Unknown 07/11/2025 12:09 AM EDT 07/11/2025 12:26 AM EDT Luanne Crawford MD LAB BLOOD ORDERABLES Final Result Performing Organization Address City/[facility]/ZIP Co de Phone Number [facility] [address] [place] [address] * (ABNORMAL) Basic Metabolic Panel, Plasma (07/11/2025 12:09 AM EDT) Glucose, Plasma 163(H) 74 - 99 mg/dL 07/11/2025 12:54 AM EDT [facility] BUN, Plasma 20 7 - 21 mg/dL 07/11/2025 12:54 AM EDT [facility] Creatinine, Plasma 0.99 0.60 - 1.10 mg/dL 07/11/2025 12:54 AM EDT [facility] BUN/Creatinine Ratio 20 07/11/2025 12:54 AM EDT [facility] Sodium, Plasma 141 136 - 145 mmol/L 07/11/2025 12:54 AM EDT [facility] Potassium, Plasma 3.8 3.6 - 4.9 mmol/L 07/11/2025 12:54 AM EDT [facility] Chloride, Plasma 104 97 - 107 mmol/L 07/11/2025 12:54 AM EDT [facility] CO2, Plasma 27 22 - 29 mmol/L 07/11/2025 12:54 AM EDT [facility] Anion Gap 10 6 - 16 mmol/L 07/11/2025 12:54 AM EDT [facility] Total Calcium, Plasma 9.1 8.9 - 10.2 mg/dL 07/11/2025 12:54 AM EDT [facility] eGFRcr 70.0 mL/min/1.7 3m*2 07/11/2025 12:54 AM EDT [facility] Comment:Reported eGFRcr in m L/min/1.73m2 is based the CKD-EPI 2020 equation that does not use a race coefficient. Blood Venous blood specimen / Unknown Venipuncture / Unknown 07/11/2025 12:09 AM EDT 07/11/2025 12:26 AM EDT us Luanne Crawford MD LAB BLOOD ORDERABLES Final Result [facility] [address] [place] [address] * (ABNORMAL) CBC W/O Differential (07/11/2025 12:09 AM EDT) WBC Count 13.23(H) 3.70 - 10.30 10*3/uL LAB HEMATOLOGY METHOD 07/11/2025 12:36 AM EDT [facility] RBC Count 3.65(L) 3.90 - 5.20 10*6/uL LAB HEMATOLOGY METHOD 07/11/2025 12:36 AM EDT [facility] HGB 10.1(L) 11.2 - 15.7 g/dL LAB HEMATOLOGY METHOD 07/11/2025 12:36 AM EDT [facility] HCT 32.1(L) 34.0 - 45.0 % LAB HEMATOLOGY METHOD 07/11/2025 12:36 AM EDT [facility] Platelet Count 270 155 - 369 10*3/uL LAB HEMATOLOGY METHOD 07/11/2025 12:36 AM EDT [facility] MCV 88 79 - 98 fL LAB HEMATOLOGY METHOD 07/11/2025 12:36 AM EDT [facility] MCH 27.7 26.0 - 32.0 pg LAB HEMATOLOGY METHOD 07/11/2025 12:36 AM EDT [facility] MCHC 31.5 30.7 - 35.5 g/dL LAB HEMATOLOGY METHOD 07/11/2025 12:36 AM EDT [facility] RDW 17.9(H) 11.5 - 14.5 % LAB HEMATOLOGY METHOD 07/11/2025 12:36 AM EDT [facility] MPV 10.7 8.8 - 12.5 fL LAB HEMATOLOGY METHOD 07/11/2025 12:36 AM EDT [facility] nRBC 0.0 <=0.0 per 100 WBCs LAB HEMATOLOGY METHOD 07/11/2025 12:36 AM EDT [facility] Blood Venous blood specimen / Unknown Venipuncture / Unknown 07/11/2025 12:09 AM EDT 07/11/2025 12:29 AM EDT us Luanne Crawford MD LAB BLOOD ORDERABLES Final Result [facility] [address] [place] [address] * (ABNORMAL) POCT glucose meter (07/11/2025 12:04 AM EDT) POCT Glucose 156(H) 74 - 99 mg/dL 07/11/2025 12:06 AM EDT [facility] Comment:Accuracy of a glucos e [...] Comment 07/11/2025 12:06 AM EDT [facility] Member Of Technical Staff ID Cheyanne Briceño 07/11/2025 12:06 AM EDT [facility] LAB Device ID [id number] 07/11/2025 12:06 AM EDT [facility] Specimen Type POC Capillary 07/11/2025 12:06 AM EDT [facility] Blood Capillary blood specimen / Unknown 07/11/2025 12:04 AM EDT 07/11/2025 12:06 AM EDT us Luanne Crawford MD LAB POINT OF CARE TEST DOCKED DEVICE UNSOLICITED RESULTS Final Result Performing Organization Address City/[facility] Co de Phone Number [facility] [address] [place] [address] * (ABNORMAL) POCT glucose meter (07/10/2025 10:02 PM EDT) [facility] POCT Glucose 202(H) 74 - 99 mg/dL [...] Comment 07/10/2025 10:03 PM EDT [facility] Member Of Technical Staff ID Lidia Ugalde 07/10/2025 10:03 PM EDT [facility] Device ID [id number] 07/10/2025 10:03 PM EDT [facility] Specimen Type POC Capillary 07/10/2025 10:03 PM EDT [facility] Blood Capillary blood specimen / Unknown 07/10/2025 10:02 PM EDT 07/10/2025 10:03 PM EDT us Luanne Crawford MD LAB POINT OF CARE TEST DOCKED DEVICE UNSOLICITED RESULTS Final Result Performing Organization Address City/[facility]/ZIP Co de Phone Number [facility] [address] [place] [address] * (ABNORMAL) Blood gas panel, arterial (07/10/2025 8:23 PM EDT) pH, Arterial 7.30(L) 7.35 - 7.45 LAB HEMATOLOGY METHOD 07/10/2025 8:40 PM EDT [facility] pCO2, Arterial 57(H) 35 - 48 mmHg LAB HEMATOLOGY METHOD 07/10/2025 8:40 PM EDT [facility] pO2, Arterial 80(L) 83 - 108 mmHg LAB HEMATOLOGY METHOD 07/10/2025 8:40 PM EDT [facility] SO2, Measured, Arterial 95 94 - 98 % LAB HEMATOLOGY METHOD 07/10/2025 8:40 PM EDT [facility] Base Excess, Arterial 1.1 -2.0 - 3.0 mmol/L LAB HEMATOLOGY METHOD 07/10/2025 8:40 PM EDT [facility] Bicarbonate, Calculated, Arterial 28(H) 22 - 26 mmol/L LAB HEMATOLOGY METHOD 07/10/2025 8:40 PM EDT [facility] Hematocrit, Whole Blood 31.5(L) 34.0 - 45.0 % LAB HEMATOLOGY METHOD 07/10/2025 8:40 PM EDT [facility] Sodium, Whole Blood 138 136 - 145 mmol/L LAB HEMATOLOGY METHOD 07/10/2025 8:40 PM EDT [facility] Potassium, Whole Blood 3.9 3.6 - 4.9 mmol/L LAB HEMATOLOGY METHOD 07/10/2025 8:40 PM EDT [facility] Chloride, Whole Blood 103 97 - 107 mmol/L LAB HEMATOLOGY METHOD 07/10/2025 8:40 PM EDT [facility] Glucose, Whole Blood 206(H) 74 - 99 mg/dL LAB HEMATOLOGY METHOD 07/10/2025 8:40 PM EDT [facility] Ionized Calcium, Whole Blood 5.0 4.6 - 5.1 mg/dL LAB HEMATOLOGY METHOD 07/10/2025 8:40 PM EDT [facility] Lactate, Arterial, Whole Blood 1.7(H) 0.5 - 1.6 mmol/L LAB HEMATOLOGY METHOD 07/10/2025 8:40 PM EDT [facility] Blood Arterial blood specimen / Unknown Arterial Puncture / Unknown 07/10/2025 8:23 PM EDT 07/10/2025 8:35 PM EDT Luanne Crawford MD LAB BLOOD ORDERABLES Final Result Performing Organization Address City/[facility]/ZIP Co de Phone Number [facility] [address] [place] [address] * (ABNORMAL) POCT glucose meter (07/10/2025 8:03 PM EDT) Pathologist [facility] POCT Glucose 206(H) 74 - 99 [...] Comment 07/10/2025 8:05 PM EDT [facility]ALTHCARE LAB Member Of Technical Staff ID Cheyanne Briceño 07/10/2025 8:05 PM EDT HEALTHCARE LAB Device ID [id number] 07/10/2025 8:05 PM EDT HEALTHCARE LAB Specimen Type POC Capillary 07/10/2025 8:05 PM EDT [facility] Blood Capillary blood specimen / Unknown 07/10/2025 8:03 PM EDT 07/10/2025 8:05 PM EDT Luanne Crawford MD LAB POINT OF CARE TEST DOCKED DEVICE UNSOLICITED RESULTS Final Result Performing Organization Address City/[facility]/ZIP Co de Phone Number [facility]ALTHCARE LAB [address] [place] [address] * (ABNORMAL) POCT glucose meter (07/10/2025 6:22 PM EDT) Pathologist [facility] POCT Glucose 150(H) 74 - 99 [...] 07/10/2025 6:25 PM EDT [facility] Member Of Technical Staff ID Zara Segovia 025 6:25 PM EDT [facility] Device ID [id number] 07/10/2025 6:25 PM EDT [facility]ALTHCARE LAB Specimen Type POC Capillary 07/10/2025 6:25 PM EDT [facility] Blood Capillary blood specimen / Unknown 07/10/2025 6:22 PM EDT 07/10/2025 6:25 PM EDT us Luanne Crawford MD LAB POINT OF CARE TEST DOCKED DEVICE UNSOLICITED RESULTS Final Result Performing Organization Address [facility] Co de Phone Number [facility] [address] [place] [address] * (ABNORMAL) POCT glucose meter (07/10/2025 2:17 PM EDT) [facility] POCT Glucose 145(H) 74 - 99 mg/dL [...] Comment 07/10/2025 2:19 PM EDT HEALTHCARE LAB Member Of Technical Staff ID Zara Segovia 025 2:19 PM EDT HEALTHCARE LAB Device ID [id number] 07/10/2025 2:19 PM EDT [facility] LAB Specimen Type POC Arterial 07/10/2025 2:19 PM EDT [facility] Blood Arterial blood specimen / Unknown 07/10/2025 2:17 PM EDT 07/10/2025 2:19 PM EDT us Luanne Crawford MD LAB POINT OF CARE TEST DOCKED DEVICE UNSOLICITED RESULTS Final Result [facility] [address] [place] [address] * XR Abdomen 1 View (07/10/2025 12:03 [...] of the abdomen. COMPARISON: None. FINDINGS: Limited yozbn-[id number] abdominal radiograph for the purpose of locating tube position. The tip of the nasogastric tube is within the mid stomach. Procedure Note Bernabe Sen MD - 07/10/2025 CLINICAL INDICATION: feeding tube placement TECHNIQUE: Supine radiograph of the abdomen. COMPARISON: None. FINDINGS: Limited dinri-fb-hebw abdominal radiograph for the purpose of locatingtube [...] 99 mg/dL 07/10/2025 12:02 PM EDT [facility] Comment:Accuracy of a glucos e [...] Comment 07/10/2025 12:02 PM EDT HEALTHCARE LAB Member Of Technical Staff ID Zara Segovia 025 12:02 PM EDT HEALTHCARE LAB Device ID [id number] 07/10/2025 12:02 PM EDT [facility]ARE LAB Specimen Type POC Arterial 07/10/2025 12:02 PM EDT [facility] Blood Arterial blood specimen / Unknown 07/10/2025 12:00 PM EDT 07/10/2025 12:02 PM EDT us Luanne Crawford MD LAB POINT OF CARE TEST DOCKED DEVICE UNSOLICITED RESULTS Final Result Performing Organization Address [facility] Co de Phone Number [facility]ARE LAB [address] [place] [address] * (ABNORMAL) POCT glucose meter (07/10/2025 9:50 [...] Comment 07/10/2025 9:52 AM EDT [facility]ALTH[facility]ARE LAB Member Of Technical Staff ID Zara Segovia 025 9:52 AM EDT [facility]ALTHCARE LAB Device ID [id number] 07/10/2025 9:52 AM EDT [facility] LAB Specimen Type POC Arterial 07/10/2025 9:52 AM EDT [facility] Blood Arterial blood specimen / Unknown 07/10/2025 9:50 AM EDT 07/10/2025 9:52 AM EDT us Luanne Crawford MD LAB POINT OF CARE TEST DOCKED DEVICE UNSOLICITED RESULTS Final Result Performing Organization Address City/[facility]/ZIP Co de Phone Number [facility] [address] [place] [address] * ECG Adult (07/10/2025 8:42 AM EDT) EKG DIAGNOSIS CLASS Abnormal MUSE ECG Ventricular Rate 79 BPM MUSE ECG Atrial Rate 79 BPM MUSE ECG RI Interval 188 ms MUSE ECG QRSD Interval 90 ms MUSE ECG QT Interval 354 ms MUSE ECG QTC Interval 405 ms MUSE ECG P [place] 44 degrees MUSE ECG R [place] 17 degrees MUSE ECG T Wave [place] 27 degrees MUSE ECG Diagnosis Sinus rhythm with frequent premature ventricular complexes MUSE ECG Diagnosis Low voltage QRS MUSE ECG Diagnosis Cannot rule out Anterior infarct , age undetermined MUSE ECG Diagnosis MUSE ECG Diagnosis MUSE ECG Diagnosis Confirmed by Octavio Walsh ([id number]) on 07/10/2025 11:49:20 AM MUSE ECG 07/10/2025 [...] POCT glucose meter (07/10/2025 8:04 AM EDT) [facility] POCT Glucose 163(H) 74 - 99 mg/dL [...] Comment 07/10/2025 9:22 AM EDT [facility]ALTHCARE LAB Member Of Technical Staff ID SegoviaZara 025 9:22 AM EDT HEALTHCARE LAB Device ID [id number] 07/10/2025 9:22 AM EDT [facility]ALTH[facility]ARE LAB Specimen Type POC Arterial 07/10/2025 9:22 AM EDT [facility] Blood Arterial blood specimen / Unknown 07/10/2025 8:04 AM EDT 07/10/2025 9:22 AM EDT us Luanne Crawford MD LAB POINT OF CARE TEST DOCKED DEVICE UNSOLICITED RESULTS Final Result [facility] [address] [place] [address] * (ABNORMAL) POCT glucose meter (07/10/2025 6:04 [...] 07/10/2025 6:05 AM EDT [facility] Member Of Technical Staff ID Cheyanne Briceño 07/10/2025 6:05 AM EDT HEALTHCARE LAB Device ID [id number] 07/10/2025 6:05 AM EDT [facility]ALTH[facility]ARE LAB Specimen Type POC Arterial 07/10/2025 6:05 AM EDT [facility] LAB Blood Arterial blood specimen / Unknown 07/10/2025 6:04 AM EDT 07/10/2025 6:05 AM EDT us Luanne Crawford MD LAB POINT OF CARE TEST DOCKED DEVICE UNSOLICITED RESULTS Final Result [facility] [address] [place] [address] * (ABNORMAL) POCT glucose meter (07/10/2025 3:59 AM EDT) [facility] POCT Glucose 153(H) 74 - 99 mg/dL [...] 07/10/2025 4:01 AM EDT [facility] Member Of Technical Staff ID Cheyanne Briceño 07/10/2025 4:01 AM EDT [facility] Device ID [id number] 07/10/2025 4:01 AM EDT [facility] Specimen Type POC Arterial 07/10/2025 4:01 AM EDT [facility] LAB Blood Arterial blood specimen / Unknown 07/10/2025 3:59 AM EDT 07/10/2025 4:01 AM EDT us Luanne Crawford MD LAB POINT OF CARE TEST DOCKED DEVICE UNSOLICITED RESULTS Final Result Performing Organization Address City/[facility] Co de Phone Number [facility]ARE LAB [address] [place] [address] * (ABNORMAL) POCT glucose meter (07/10/2025 3:01 [...] Comment 07/10/2025 3:03 AM EDT [facility]ALTHCARE LAB Member Of Technical Staff ID Cheyanne Briceño 07/10/2025 3:03 AM EDT HEALTH[facility]ARE LAB Device ID [id number] 07/10/2025 3:03 AM EDT [facility]ARE LAB Specimen Type POC Arterial 07/10/2025 3:03 AM EDT [facility] LAB Blood Arterial blood specimen / Unknown 07/10/2025 3:01 AM EDT 07/10/2025 3:03 AM EDT us Luanne Crawford MD LAB POINT OF CARE TEST DOCKED DEVICE UNSOLICITED RESULTS Final Result Performing Organization Address City/[facility] Co de Phone Number [facility] [address] [place] [address] * (ABNORMAL) POCT glucose meter (07/10/2025 2:03 [...] 07/10/2025 2:04 AM EDT [facility] Member Of Technical Staff ID Cheyanne Briceño 07/10/2025 2:04 AM EDT [facility]ALTH[facility]ARE LAB Device ID [id number] 07/10/2025 2:04 AM EDT [facility]ALTH[facility]ARE LAB Specimen Type POC Arterial 07/10/2025 2:04 AM EDT [facility] LAB Blood Arterial blood specimen / Unknown 07/10/2025 2:03 AM EDT 07/10/2025 2:04 AM EDT Luanne Crawford MD LAB POINT OF CARE TEST DOCKED DEVICE UNSOLICITED RESULTS Final Result Performing Organization Address [facility] de Phone Number HE[facility]CARE LAB [address] [place] [address] * (ABNORMAL) POCT glucose meter (07/10/2025 12:59 [...] Comment 07/10/2025 1:00 AM EDT [facility]ALTHCARE LAB Member Of Technical Staff ID Cheyanne Briceño 07/10/2025 1:00 AM EDT HEALTHCARE LAB Device ID [id number] 07/10/2025 1:00 AM EDT HEALTHCARE LAB Specimen Type POC Arterial 07/10/2025 1:00 AM EDT [facility]ALTH[facility]ARE LAB Blood Arterial blood specimen / Unknown 07/10/2025 12:59 AM EDT 07/10/2025 1:00 AM EDT us Luanne Crawford MD LAB POINT OF CARE TEST DOCKED DEVICE UNSOLICITED RESULTS Final Result Performing Organization Address City/[facility] Co de Phone Number [facility] [address] [place] [address] * Phosphorus (07/10/2025 12:03 AM EDT) Phosphorus, Plasma 4.2 2.5 - 4.5 mg/dL 07/10/2025 12:40 AM EDT [facility] Blood Arterial blood specimen / Unknown Venipuncture / Unknown 07/10/2025 12:03 AM EDT 07/10/2025 12:10 AM EDT Luanne Crawford MD LAB BLOOD ORDERABLES Final Result [facility] [address] [place] [address] * Magnesium, Plasma (07/10/2025 12:03 AM EDT) Magnesium, Plasma 2.1 1.9 - 2.4 mg/dL 07/10/2025 12:40 AM EDT [facility] Blood Arterial blood specimen / Unknown Venipuncture / Unknown 07/10/2025 12:03 AM EDT 07/10/2025 12:10 AM EDT Luanne Crawford MD LAB BLOOD ORDERABLES Final Result [facility] [address] [place] [address] * (ABNORMAL) Basic Metabolic Panel, Plasma (07/10/2025 12:03 AM EDT) Glucose, Plasma 155(H) 74 - 99 mg/dL 07/10/2025 12:40 AM EDT [facility] BUN, Plasma 22(H) 7 - 21 mg/dL 07/10/2025 12:40 AM EDT [facility] Creatinine, Plasma 1.25(H) 0.60 - 1.10 mg/dL 07/10/2025 12:40 AM EDT [facility] BUN/Creatinine Ratio 18 07/10/2025 12:40 AM EDT [facility] Sodium, Plasma 134(L) 136 - 145 mmol/L 07/10/2025 12:40 AM EDT [facility] Potassium, Plasma 3.7 3.6 - 4.9 mmol/L 07/10/2025 12:40 AM EDT [facility] Chloride, Plasma 101 97 - 107 mmol/L 07/10/2025 12:40 AM EDT [facility] CO2, Plasma 25 22 - 29 mmol/L 07/10/2025 12:40 AM EDT [facility] Anion Gap 8 6 - 16 mmol/L 07/10/2025 12:40 AM EDT [facility] Total Calcium, Plasma 9.3 8.9 - 10.2 mg/dL 07/10/2025 12:40 AM EDT [facility] eGFRcr 52.9 mL/min/1.7 3m*2 07/10/2025 12:40 AM EDT [facility] Comment:Reported eGFRcr in m L/min/1.73m2 is based the CKD-EPI 2020 equation that does not use a race coefficient. Blood Arterial blood specimen / Unknown Venipuncture / Unknown 07/10/2025 12:03 AM EDT 07/10/2025 12:10 AM EDT us Luanne Crawford MD LAB BLOOD ORDERABLES Final Result [facility] [address] [place] [address] * (ABNORMAL) CBC W/O Differential (07/10/2025 12:03 AM EDT) WBC Count 17.64(H) 3.70 - 10.30 10*3/uL LAB HEMATOLOGY METHOD 07/10/2025 12:22 AM EDT [facility] RBC Count 3.83(L) 3.90 - 5.20 10*6/uL LAB HEMATOLOGY METHOD 07/10/2025 12:22 AM EDT [facility] HGB 10.6(L) 11.2 - 15.7 g/dL LAB HEMATOLOGY METHOD 07/10/2025 12:22 AM EDT [facility] HCT 33.3(L) 34.0 - 45.0 % LAB HEMATOLOGY METHOD 07/10/2025 12:22 AM EDT [facility] Platelet Count 309 155 - 369 10*3/uL LAB HEMATOLOGY METHOD 07/10/2025 12:22 AM EDT [facility] MCV 87 79 - 98 fL LAB HEMATOLOGY METHOD 07/10/2025 12:22 AM EDT [facility] MCH 27.7 26.0 - 32.0 pg LAB HEMATOLOGY METHOD 07/10/2025 12:22 AM EDT [facility] MCHC 31.8 30.7 - 35.5 g/dL LAB HEMATOLOGY METHOD 07/10/2025 12:22 AM EDT [facility] RDW 17.9(H) 11.5 - 14.5 % LAB HEMATOLOGY METHOD 07/10/2025 12:22 AM EDT [facility] MPV 10.3 8.8 - 12.5 fL LAB HEMATOLOGY METHOD 07/10/2025 12:22 AM EDT [facility] nRBC 0.0 <=0.0 per 100 WBCs LAB HEMATOLOGY METHOD 07/10/2025 12:22 AM EDT [facility] Blood Arterial blood specimen / Unknown Venipuncture / Unknown 07/10/2025 12:03 AM EDT 07/10/2025 12:11 AM EDT us Luanne Crawford MD LAB BLOOD ORDERABLES Final Result [facility] [address] [place] [address] * (ABNORMAL) POCT glucose meter (07/10/2025 12:02 [...] 07/10/2025 12:04 AM EDT [facility] Member Of Technical Staff ID Cheyanne Briceño 07/10/2025 12:04 AM EDT HEALTHCARE LAB Device ID [id number] 07/10/2025 12:04 AM EDT [facility] Specimen Type POC Arterial 07/10/2025 12:04 AM EDT [facility]ALTH[facility]ARE LAB Blood Arterial blood specimen / Unknown 07/10/2025 12:02 AM EDT 07/10/2025 12:04 AM EDT us Luanne Crawford MD LAB POINT OF CARE TEST DOCKED DEVICE UNSOLICITED RESULTS Final Result Performing Organization Address City/[facility] Co de Phone Number [facility]ARE LAB [address] [place] [address] * (ABNORMAL) POCT glucose meter (07/09/2025 10:01 [...] Comment 07/09/2025 10:04 PM EDT [facility]ALTH[facility]ARE LAB Member Of Technical Staff ID Cheyanne Briceño 07/09/2025 10:04 PM EDT HEALTHCARE LAB Device ID [id number] 07/09/2025 10:04 PM EDT HEALTH[facility]ARE LAB Specimen Type POC Arterial 07/09/2025 10:04 PM EDT [facility] LAB Blood Arterial blood specimen / Unknown 07/09/2025 10:01 PM EDT 07/09/2025 10:04 PM EDT us Luanne Crawford MD LAB POINT OF CARE TEST DOCKED DEVICE UNSOLICITED RESULTS Final Result Performing Organization Address City/[facility] Co de Phone Number [facility]ARE [facility] [address] [place] [address] * (ABNORMAL) POCT glucose meter (07/09/2025 8:09 [...] Comment 07/09/2025 8:11 PM EDT [facility]ALTH[facility]ARE LAB Member Of Technical Staff ID Cheyanne Briceño 07/09/2025 8:11 PM EDT HEALTHCARE LAB Device ID [id number] 07/09/2025 8:11 PM EDT [facility]ALTH[facility]ARE LAB Specimen Type POC Capillary 07/09/2025 8:11 PM EDT [facility] Blood Capillary blood specimen / Unknown 07/09/2025 8:09 PM EDT 07/09/2025 8:11 PM EDT us Luanne Crawford MD LAB POINT OF CARE TEST DOCKED DEVICE UNSOLICITED RESULTS Final Result Performing Organization Address City/State/[facility] Co de Phone Number [facility]ARE [facility] [address] [place] [address] * (ABNORMAL) POCT glucose meter (07/09/2025 6:22 PM EDT) POCT Glucose 151(H) 74 - [...] Comment 07/09/2025 6:24 PM EDT HEALTHCARE LAB Member Of Technical Staff ID Jeana Bear 07/09/2025 6:24 PM EDT HEALTHCARE LAB Device ID [id number] 07/09/2025 6:24 PM EDT [facility]ALTH[facility]ARE LAB Specimen Type POC Capillary 07/09/2025 6:24 PM EDT [facility] LAB Blood Capillary blood specimen / Unknown 07/09/2025 6:22 PM EDT 07/09/2025 6:24 PM EDT us Luanne Crawford MD LAB POINT OF CARE TEST DOCKED DEVICE UNSOLICITED RESULTS Final Result [facility] [address] [place] [address] * (ABNORMAL) POCT glucose meter (07/09/2025 4:06 PM EDT) POCT Glucose 144(H) 74 - 99 mg/dL 07/09/2025 4:07 PM EDT [facility] Comment:Accuracy of a glucos e [...] for testing. Comment 07/09/2025 4:07 PM EDT [facility] Member Of Technical Staff ID Jeana Bear 07/09/2025 4:07 PM EDT [facility] Device ID [id number] 07/09/2025 4:07 PM EDT [facility] Specimen Type POC Capillary 07/09/2025 4:07 PM EDT [facility] Blood Capillary blood specimen / Unknown 07/09/2025 4:06 PM EDT 07/09/2025 4:07 PM EDT us Luanne Crawford MD LAB POINT OF CARE TEST DOCKED DEVICE UNSOLICITED RESULTS Final Result Performing Organization Address City/[facility]/ZIP Co de Phone Number [facility]ARE [facility] [address] [place] [address] * (ABNORMAL) Blood gas, arterial (07/09/2025 3:16 PM EDT) pH, Arterial 7.31(L) 7.35 - 7.45 LAB HEMATOLOGY METHOD 07/09/2025 3:40 PM EDT [facility] pCO2, Arterial 53(H) 35 - 48 mmHg LAB HEMATOLOGY METHOD 07/09/2025 3:40 PM EDT [facility] pO2, Arterial 153(H) 83 - 108 mmHg LAB HEMATOLOGY METHOD 07/09/2025 3:40 PM EDT [facility] SO2, Measured, Arterial 100(H) 94 - 98 % LAB HEMATOLOGY METHOD 07/09/2025 3:40 PM EDT [facility] Base Excess, Arterial -0.4 -2.0 - 3.0 mmol/L LAB HEMATOLOGY METHOD 07/09/2025 3:40 PM EDT [facility] Bicarbonate, Calculated, Arterial 26 22 - 26 mmol/L LAB HEMATOLOGY METHOD 07/09/2025 3:40 PM EDT [facility] Hematocrit, Whole Blood 30.6(L) 34.0 - 45.0 % LAB HEMATOLOGY METHOD 07/09/2025 3:40 PM EDT [facility] Sodium, Whole Blood 141 136 - 145 mmol/L LAB HEMATOLOGY METHOD 07/09/2025 3:40 PM EDT [facility] Potassium, Whole Blood 3.4(L) 3.6 - 4.9 mmol/L LAB HEMATOLOGY METHOD 07/09/2025 3:40 PM EDT [facility] Chloride, Whole Blood 107 97 - 107 mmol/L LAB HEMATOLOGY METHOD 07/09/2025 3:40 PM EDT [facility] Glucose, Whole Blood 141(H) 74 - 99 mg/dL LAB HEMATOLOGY METHOD 07/09/2025 3:40 PM EDT [facility] Ionized Calcium, Whole Blood 4.9 4.6 - 5.1 mg/dL LAB HEMATOLOGY METHOD 07/09/2025 3:40 PM EDT [facility] Lactate, Arterial, Whole Blood 0.9 0.5 - 1.6 mmol/L LAB HEMATOLOGY METHOD 07/09/2025 3:40 PM EDT [facility] Blood Arterial blood specimen / Unknown Arterial Line / Unknown 07/09/2025 3:16 PM EDT 07/09/2025 3:38 PM EDT us Luanne Crawford MD LAB BLOOD ORDERABLES Final Result [facility] [address] [place] [address] * (ABNORMAL) POCT glucose meter (07/09/2025 3:01 [...] 07/09/2025 3:03 PM EDT [facility] Member Of Technical Staff ID Jeana Bear 07/09/2025 3:03 PM EDT [facility] Device ID [id number] 07/09/2025 3:03 PM EDT [facility] Specimen Type POC Capillary 07/09/2025 3:03 PM EDT [facility] Blood Capillary blood specimen / Unknown 07/09/2025 3:01 PM EDT 07/09/2025 3:03 PM EDT us Luanne Crawford MD LAB POINT OF CARE TEST DOCKED DEVICE UNSOLICITED RESULTS Final Result [facility] [address] [place] [address] * (ABNORMAL) POCT glucose meter (07/09/2025 1:57 PM EDT) [facility] POCT Glucose 115(H) 74 - 99 mg/dL [...] 07/09/2025 1:59 PM EDT [facility] Member Of Technical Staff ID Jeana Bear 07/09/2025 1:59 PM EDT [facility] Device ID [id number] 07/09/2025 1:59 PM EDT [facility] Specimen Type POC Capillary 07/09/2025 1:59 PM EDT [facility] Blood Capillary blood specimen / Unknown 07/09/2025 1:57 PM EDT 07/09/2025 1:59 PM EDT us Luanne Crawford MD LAB POINT OF CARE TEST DOCKED DEVICE UNSOLICITED RESULTS Final Result [facility] [address] [place] [address] * Phosphorus (07/09/2025 1:21 PM EDT) Phosphorus, Plasma 4.2 2.5 - 4.5 mg/dL 07/09/2025 2:49 PM EDT [facility] Blood Arterial blood specimen / Unknown Arterial Line / Unknown 07/09/2025 1:21 PM EDT 07/09/2025 2:01 PM EDT Luanne Crawford MD LAB BLOOD ORDERABLES Final Result Performing Organization Address City/[facility]/ZIP Co de Phone Number [facility] [address] [place] [address] * Magnesium (07/09/2025 1:21 PM EDT) Magnesium, Plasma 2.3 1.9 - 2.4 mg/dL 07/09/2025 2:49 PM EDT [facility] Blood Arterial blood specimen / Unknown Arterial Line / Unknown 07/09/2025 1:21 PM EDT 07/09/2025 2:01 PM EDT us Luanne Crawford MD LAB BLOOD ORDERABLES Final Result Performing Organization Address City/[facility]/ZIP Co de Phone Number [facility] [address] [place] [address] * (ABNORMAL) Basic metabolic panel (07/09/2025 1:21 PM EDT) Glucose, Plasma 100(H) 74 - 99 mg/dL 07/09/2025 2:49 PM EDT [facility] BUN, Plasma 26(H) 7 - 21 mg/dL 07/09/2025 2:49 PM EDT [facility] Creatinine, Plasma 1.42(H) 0.60 - 1.10 mg/dL 07/09/2025 2:49 PM EDT [facility] BUN/Creatinine Ratio 18 07/09/2025 2:49 PM EDT [facility] Sodium, Plasma 140 136 - 145 mmol/L 07/09/2025 2:49 PM EDT [facility] Potassium, Plasma 3.7 3.6 - 4.9 mmol/L 07/09/2025 2:49 PM EDT [facility] Chloride, Plasma 104 97 - 107 mmol/L 07/09/2025 2:49 PM EDT [facility] CO2, Plasma 24 22 - 29 mmol/L 07/09/2025 2:49 PM EDT [facility] Anion Gap 12 6 - 16 mmol/L 07/09/2025 2:49 PM EDT [facility] Total Calcium, Plasma 9.1 8.9 - 10.2 mg/dL 07/09/2025 2:49 PM EDT [facility] eGFRcr 45.4 mL/min/1.7 3m*2 07/09/2025 2:49 PM EDT [facility] Comment:Reported eGFRcr in m L/min/1.73m2 is based the CKD-EPI 2020 equation that does not use a race coefficient. Blood Arterial blood specimen / Unknown Arterial Line / Unknown 07/09/2025 1:21 PM EDT 07/09/2025 2:01 PM EDT us Luanne Crawford MD LAB BLOOD ORDERABLES Final Result [facility] [address] [place] [address] * (ABNORMAL) POCT glucose meter (07/09/2025 1:20 PM EDT) Pathologist [facility] POCT Glucose 103(H) 74 - 99 mg/dL 07/09/2025 1:22 PM EDT [facility] Comment:Accuracy of a glucos e [...] Comment 07/09/2025 1:22 PM EDT [facility]ALTH[facility] LAB Member Of Technical Staff ID Jeana Bear 07/09/2025 1:22 PM EDT [facility]ALTH[facility]ARE LAB Device ID [id number] 07/09/2025 1:22 PM EDT [facility] Specimen Type POC Arterial 07/09/2025 1:22 PM EDT [facility] Blood Arterial blood specimen / Unknown 07/09/2025 1:20 PM EDT 07/09/2025 1:22 PM EDT us Luanne Crawford MD LAB POINT OF CARE TEST DOCKED DEVICE UNSOLICITED RESULTS Final Result Performing Organization Address City/[facility] Co de Phone Number [facility] [address] [place] [address] * (ABNORMAL) POCT glucose meter (07/09/2025 12:44 [...] Comment 07/09/2025 12:45 PM EDT [facility] Member Of Technical Staff ID Jeana Bear 07/09/2025 12:45 PM EDT [facility] Device ID [id number] 07/09/2025 12:45 PM EDT [facility] Specimen Type POC Capillary 07/09/2025 12:45 PM EDT [facility] Blood Capillary blood specimen / Unknown 07/09/2025 12:44 PM EDT 07/09/2025 12:45 PM EDT us Luanne Crawford MD LAB POINT OF CARE TEST DOCKED DEVICE UNSOLICITED RESULTS Final Result Performing Organization Address City/[facility]/ZIP Co de Phone Number [facility] [address] [place] [address] * (ABNORMAL) POCT glucose meter (07/09/2025 12:19 [...] Comment 07/09/2025 12:21 PM EDT [facility] Member Of Technical Staff ID Jeana Bear 07/09/2025 12:21 PM EDT [facility]ALTH[facility]ARE LAB Device ID [id number] 07/09/2025 12:21 PM EDT [facility] Specimen Type POC Capillary 07/09/2025 12:21 PM EDT [facility] Blood Capillary blood specimen / Unknown 07/09/2025 12:19 PM EDT 07/09/2025 12:21 PM EDT us Luanne Crawford MD LAB POINT OF CARE TEST DOCKED DEVICE UNSOLICITED RESULTS Final Result Performing Organization Address City/[facility]/ZIP Co de Phone Number [facility] [address] [place] [address] * Blood Culture (Aerobic/Anaerobet Set) (07/09/2025 10:35 AM EDT) Culture No growth at day 5 [place] 07/14/2025 12:02 PM EDT [facility] Blood Structure of antecubital vein / Unknown Venipuncture / Unknown 07/09/2025 10:35 AM EDT 07/09/2025 10:50 AM EDT us My Charles MD LAB MICROBIOLOGY - GENE RAL ORDERABLES Final Result [facility] [address] [place] [address] * Blood Culture (Aerobic/Anaerobet Set) (07/09/2025 10:35 AM EDT) Culture No growth at day 5 [place] 07/14/2025 12:02 PM EDT [facility] [facility] Blood Structure of antecubital vein / Unknown Venipuncture / Unknown 07/09/2025 10:35 AM EDT 07/09/2025 10:50 AM EDT us My Charles MD LAB MICROBIOLOGY - GENE RAL ORDERABLES Final Result Performing Organization Address City/[facility]/ZIP Co de Phone Number [facility] [address] [place] [address] * (ABNORMAL) POCT glucose meter (07/09/2025 10:04 AM EDT) [facility] POCT Glucose 114(H) 74 - 99 mg/dL [...] Comment 07/09/2025 10:05 AM EDT [facility] Member Of Technical Staff ID Jeana Bear 07/09/2025 10:05 AM EDT [facility] Device ID [id number] 07/09/2025 10:05 AM EDT [facility] Specimen Type POC Capillary 07/09/2025 10:05 AM EDT [facility] Blood Capillary blood specimen / Unknown 07/09/2025 10:04 AM EDT 07/09/2025 10:05 AM EDT us Luanne Crawford MD LAB POINT OF CARE TEST DOCKED DEVICE UNSOLICITED RESULTS Final Result Performing Organization Address City/[facility]/ZIP Co de Phone Number [facility] [address] [place] [address] * Multi Drug Resistance Test (07/09/2025 9:46 AM EDT) [facility] Culture No growth at day 1 07/10/2025 11:58 AM EDT [facility] Swab (Nares and Leann Rectal) Non-blood Collection / Unknown 07/09/2025 9:46 AM EDT 07/09/2025 10:09 AM EDT Narrative [facility] - 07/10/2025 11:58 AM EDT This test was developed and its performance characteristics determined by the [facility]. Although the media is FDA-approved, it is not FDA-approved for all specimen types submitted. The FDA has determined that such clearance or approval is not necessary. This test is used for surveillance purposes. It should not be regarded as investigational or for research. The [facility] is certified under the Clinical Laboratory Improvement Amendments of 1988 (CLIA-88) as qualified to perform high complexity clinical laboratory testing. us Luanne Crawford MD LAB MICROBIOLOGY - GENERAL ORDERABLES Final Result [facility] [address] [place] [address] * (ABNORMAL) Blood gas, arterial (07/09/2025 8:47 AM EDT) pH, Arterial 7.30(L) 7.35 - 7.45 LAB HEMATOLOGY METHOD 07/09/2025 8:55 AM EDT [facility] pCO2, Arterial 53(H) 35 - 48 mmHg LAB HEMATOLOGY METHOD 07/09/2025 8:55 AM EDT [facility] pO2, Arterial 173(H) 83 - 108 mmHg LAB HEMATOLOGY METHOD 07/09/2025 8:55 AM EDT [facility] SO2, Measured, Arterial 98 94 - 98 % LAB HEMATOLOGY METHOD 07/09/2025 8:55 AM EDT [facility] Base Excess, Arterial -0.8 -2.0 - 3.0 mmol/L LAB HEMATOLOGY METHOD 07/09/2025 8:55 AM EDT [facility] Bicarbonate, Calculated, Arterial 26 22 - 26 mmol/L LAB HEMATOLOGY METHOD 07/09/2025 8:55 AM EDT [facility] Hematocrit, Whole Blood 27.3(L) 34.0 - 45.0 % LAB HEMATOLOGY METHOD 07/09/2025 8:55 AM EDT [facility] Sodium, Whole Blood 140 136 - 145 mmol/L LAB HEMATOLOGY METHOD 07/09/2025 8:55 AM EDT [facility] Potassium, Whole Blood 2.9(L) 3.6 - 4.9 mmol/L LAB HEMATOLOGY METHOD 07/09/2025 8:55 AM EDT [facility] Chloride, Whole Blood 106 97 - 107 mmol/L LAB HEMATOLOGY METHOD 07/09/2025 8:55 AM EDT [facility] Glucose, Whole Blood 155(H) 74 - 99 mg/dL LAB HEMATOLOGY METHOD 07/09/2025 8:55 AM EDT [facility] Ionized Calcium, Whole Blood 5.0 4.6 - 5.1 mg/dL LAB HEMATOLOGY METHOD 07/09/2025 8:55 AM EDT [facility] Lactate, Arterial, Whole Blood 1.4 0.5 - 1.6 mmol/L LAB HEMATOLOGY METHOD 07/09/2025 8:55 AM EDT [facility] Blood Arterial blood specimen / Unknown Arterial Line / Unknown 07/09/2025 8:47 AM EDT 07/09/2025 8:54 AM EDT us Dorcas Hennessy MD LAB BLOOD ORDERABLES Final Resul t [facility] [address] [place] [address] * (ABNORMAL) POCT glucose meter (07/09/2025 8:01 [...] Comment 07/09/2025 8:03 AM EDT [facility] Member Of Technical Staff ID Jeana Bear 07/09/2025 8:03 AM EDT [facility] Device ID [id number] 07/09/2025 8:03 AM EDT [facility] Specimen Type POC Capillary 07/09/2025 8:03 AM EDT [facility] Blood Capillary blood specimen / Unknown 07/09/2025 8:01 AM EDT 07/09/2025 8:03 AM EDT us Luanne Crawford MD LAB POINT OF CARE TEST DOCKED DEVICE UNSOLICITED RESULTS Final Result Performing Organization Address City/State/[facility] Co de Phone Number [facility] [address] [place] [address] * RI CRITICAL CARE, E/M 30-74 MINUTES [...] Comment 07/09/2025 6:20 AM EDT [facility] Member Of Technical Staff ID Cheyanne Briceño 07/09/2025 6:20 AM EDT [facility] Device ID [id number] 07/09/2025 6:20 AM EDT [facility] Specimen Type POC Arterial 07/09/2025 6:20 AM EDT [facility] Blood Arterial blood specimen / Unknown 07/09/2025 6:05 AM EDT 07/09/2025 6:20 AM EDT Luanne Crawford MD LAB POINT OF CARE TEST DOCKED DEVICE UNSOLICITED RESULTS Final Result Performing Organization Address City/[facility]/ZIP Co de Phone Number [facility] [address] [place] [address] * (ABNORMAL) Hemoglobin A1c (07/09/2025 4:57 AM EDT) Hemoglobin A1c 7.5(H) <5.7 % 07/09/2025 12:09 PM EDT [facility] Blood Arterial blood specimen / Unknown Venipuncture / Unknown 07/09/2025 4:57 AM EDT 07/09/2025 5:07 AM EDT Narrative [facility] - 07/09/2025 12:09 PM EDT HA1C Interpretive Data: Diagnosis of Diabetes: Diabetic > or = 6.5% Pre-diabetic 5.7 to 6.4% Non-diabetic < or = 5.6% Glycemic Targets for Type I and Type II Diabetics: Non- Adults <7.0% Adults <6.0% Children and Adolescents <7.5% Source: [place] [employer]. Standards of medical care in diabetes,2017. Diabetes Care.2017:40 (suppl 1):S1-S135. us Dorcas Hennessy MD LAB BLOOD ORDERABLES Final Resul t [facility] [address] [place] [address] * Phosphorus (07/09/2025 4:57 AM EDT) Phosphorus, Plasma 4.1 2.5 - 4.5 mg/dL 07/09/2025 5:35 AM EDT [facility] Blood Arterial blood specimen / Unknown Venipuncture / Unknown 07/09/2025 4:57 AM EDT 07/09/2025 5:06 AM EDT Luanne Crawford MD LAB BLOOD ORDERABLES Final Result Performing Organization Address City/[facility]/ZIP Co de Phone Number [facility] [address] [place] [address] * Magnesium, Plasma (07/09/2025 4:57 AM EDT) Magnesium, Plasma 2.2 1.9 - 2.4 mg/dL 07/09/2025 5:35 AM EDT [facility] Blood Arterial blood specimen / Unknown Venipuncture / Unknown 07/09/2025 4:57 AM EDT 07/09/2025 5:06 AM EDT Luanne Crawford MD LAB BLOOD ORDERABLES Final Result Performing Organization Address City/[facility]/ZIP Co de Phone Number [facility] [address] [place] [address] * (ABNORMAL) Basic Metabolic Panel, Plasma (07/09/2025 4:57 AM EDT) Glucose, Plasma 235(H) 74 - 99 mg/dL 07/09/2025 5:35 AM EDT [facility] BUN, Plasma 30(H) 7 - 21 mg/dL 07/09/2025 5:35 AM EDT [facility] Creatinine, Plasma 1.58(H) 0.60 - 1.10 mg/dL 07/09/2025 5:35 AM EDT [facility] BUN/Creatinine Ratio 19 07/09/2025 5:35 AM EDT [facility] Sodium, Plasma 136 136 - 145 mmol/L 07/09/2025 5:35 AM EDT [facility] Potassium, Plasma 3.5(L) 3.6 - 4.9 mmol/L 07/09/2025 5:35 AM EDT [facility] Chloride, Plasma 101 97 - 107 mmol/L 07/09/2025 5:35 AM EDT [facility] CO2, Plasma 23 22 - 29 mmol/L 07/09/2025 5:35 AM EDT [facility] Anion Gap 12 6 - 16 mmol/L 07/09/2025 5:35 AM EDT [facility] Total Calcium, Plasma 9.2 8.9 - 10.2 mg/dL 07/09/2025 5:35 AM EDT [facility] eGFRcr 40.0 mL/min/1.7 3m*2 07/09/2025 5:35 AM EDT [facility] Comment:Reported eGFRcr in m L/min/1.73m2 is based the CKD-EPI 2020 equation that does not use a race coefficient. Blood Arterial blood specimen / Unknown Venipuncture / Unknown 07/09/2025 4:57 AM EDT 07/09/2025 5:06 AM EDT us Luanne Crawford MD LAB BLOOD ORDERABLES Final Result [facility] [address] [place] [address] * (ABNORMAL) CBC W/O Differential (07/09/2025 4:57 AM EDT) WBC Count 32.25(H) 3.70 - 10.30 10*3/uL LAB HEMATOLOGY METHOD 07/09/2025 5:15 AM EDT [facility] RBC Count 3.89(L) 3.90 - 5.20 10*6/uL LAB HEMATOLOGY METHOD 07/09/2025 5:15 AM EDT [facility] HGB 11.0(L) 11.2 - 15.7 g/dL LAB HEMATOLOGY METHOD 07/09/2025 5:15 AM EDT [facility] HCT 33.4(L) 34.0 - 45.0 % LAB HEMATOLOGY METHOD 07/09/2025 5:15 AM EDT [facility] Platelet Count 358 155 - 369 10*3/uL LAB HEMATOLOGY METHOD 07/09/2025 5:15 AM EDT [facility] MCV 86 79 - 98 fL LAB HEMATOLOGY METHOD 07/09/2025 5:15 AM EDT [facility] MCH 28.3 26.0 - 32.0 pg LAB HEMATOLOGY METHOD 07/09/2025 5:15 AM EDT [facility] MCHC 32.9 30.7 - 35.5 g/dL LAB HEMATOLOGY METHOD 07/09/2025 5:15 AM EDT [facility] RDW 17.4(H) 11.5 - 14.5 % LAB HEMATOLOGY METHOD 07/09/2025 5:15 AM EDT [facility] MPV 10.0 8.8 - 12.5 fL LAB HEMATOLOGY METHOD 07/09/2025 5:15 AM EDT [facility] nRBC 0.0 <=0.0 per 100 WBCs LAB HEMATOLOGY METHOD 07/09/2025 5:15 AM EDT [facility] Blood Arterial blood specimen / Unknown Venipuncture / Unknown 07/09/2025 4:57 AM EDT 07/09/2025 5:07 AM EDT us Luanne Crawford MD LAB BLOOD ORDERABLES Final Result [facility] [address] [place] [address] * (ABNORMAL) POCT glucose meter (07/09/2025 4:03 [...] Comment 07/09/2025 4:05 AM EDT [facility] Member Of Technical Staff ID Cheyanne Briceño 07/09/2025 4:05 AM EDT [facility] Device ID [id number] 07/09/2025 4:05 AM EDT [facility] Specimen Type POC Arterial 07/09/2025 4:05 AM EDT [facility] Blood Arterial blood specimen / Unknown 07/09/2025 4:03 AM EDT 07/09/2025 4:05 AM EDT Luanne Crawford MD LAB POINT OF CARE TEST DOCKED DEVICE UNSOLICITED RESULTS Final Result [facility] [address] [place] [address] * XR Chest 1 View (07/09/2025 3:42 [...] for testing. Comment 07/09/2025 2:17 AM EDT [facility] Member Of Technical Staff ID Cheyanne Briceño 07/09/2025 2:17 AM EDT [facility] Device ID [id number] 07/09/2025 2:17 AM EDT [facility] Specimen Type POC Arterial 07/09/2025 2:17 AM EDT [facility] Blood Arterial blood specimen / Unknown 07/09/2025 2:15 AM EDT 07/09/2025 2:17 AM EDT us Luanne Crawford MD LAB POINT OF CARE TEST DOCKED DEVICE UNSOLICITED RESULTS Final Result Performing Organization Address City/State/[facility] Co de Phone Number [facility] [address] [place] [address] * (ABNORMAL) Blood gas panel, arterial (07/09/2025 2:11 AM EDT) pH, Arterial 7.25(LL) 7.35 - 7.45 LAB HEMATOLOGY METHOD 07/09/2025 2:23 AM EDT [facility] pCO2, Arterial 56(H) 35 - 48 mmHg LAB HEMATOLOGY METHOD 07/09/2025 2:23 AM EDT [facility] pO2, Arterial 67(L) 83 - 108 mmHg LAB HEMATOLOGY METHOD 07/09/2025 2:23 AM EDT [facility] SO2, Measured, Arterial 91(L) 94 - 98 % LAB HEMATOLOGY METHOD 07/09/2025 2:23 AM EDT [facility] Base Excess, Arterial -2.7(L) -2.0 - 3.0 mmol/L LAB HEMATOLOGY METHOD 07/09/2025 2:23 AM EDT [facility] Bicarbonate, Calculated, Arterial 25 22 - 26 mmol/L LAB HEMATOLOGY METHOD 07/09/2025 2:23 AM EDT [facility] Hematocrit, Whole Blood 31.5(L) 34.0 - 45.0 % LAB HEMATOLOGY METHOD 07/09/2025 2:23 AM EDT [facility] Sodium, Whole Blood 135(L) 136 - 145 mmol/L LAB HEMATOLOGY METHOD 07/09/2025 2:23 AM EDT [facility] Potassium, Whole Blood 3.5(L) 3.6 - 4.9 mmol/L LAB HEMATOLOGY METHOD 07/09/2025 2:23 AM EDT [facility] Chloride, Whole Blood 103 97 - 107 mmol/L LAB HEMATOLOGY METHOD 07/09/2025 2:23 AM EDT [facility] Glucose, Whole Blood 279(H) 74 - 99 mg/dL LAB HEMATOLOGY METHOD 07/09/2025 2:23 AM EDT [facility] Ionized Calcium, Whole Blood 4.9 4.6 - 5.1 mg/dL LAB HEMATOLOGY METHOD 07/09/2025 2:23 AM EDT [facility] Lactate, Arterial, Whole Blood 1.2 0.5 - 1.6 mmol/L LAB HEMATOLOGY METHOD 07/09/2025 2:23 AM EDT [facility] Blood Arterial blood specimen / Unknown Arterial Puncture / Unknown 07/09/2025 2:11 AM EDT 07/09/2025 2:21 AM EDT us Luanne Crawford MD LAB BLOOD ORDERABLES Final Result [facility] [address] [place] [address] * (ABNORMAL) POCT glucose meter (07/09/2025 1:22 [...] 07/09/2025 1:24 AM EDT [facility] Member Of Technical Staff ID Cheyanne Briceño 07/09/2025 1:24 AM EDT [facility] Device ID [id number] 07/09/2025 1:24 AM EDT [facility] Specimen Type POC Arterial 07/09/2025 1:24 AM EDT [facility] Blood Arterial blood specimen / Unknown 07/09/2025 1:22 AM EDT 07/09/2025 1:24 AM EDT us Luanne Crawford MD LAB POINT OF CARE TEST DOCKED DEVICE UNSOLICITED RESULTS Final Result [facility] [address] [place] [address] * (ABNORMAL) POCT glucose meter (07/09/2025 12:06 AM EDT) [facility] Signature POCT Glucose 311(H) 74 - 99 mg/dL [...] 07/09/2025 12:08 AM EDT [facility] Member Of Technical Staff ID Cheyanne Briceño 07/09/2025 12:08 AM EDT [facility] Device ID [id number] 07/09/2025 12:08 AM EDT [facility] Specimen Type POC Arterial 07/09/2025 12:08 AM EDT [facility] Blood Arterial blood specimen / Unknown 07/09/2025 12:06 AM EDT 07/09/2025 12:08 AM EDT us Luanne Crawford MD LAB POINT OF CARE TEST DOCKED DEVICE UNSOLICITED RESULTS Final Result Performing Organization Address City/[facility] Co de Phone Number [facility] [address] [place] [address] * APTT (07/08/2025 11:53 PM EDT) aPTT 25 25 - 35 sec LAB COAGULATION METHOD 07/09/2025 12:32 AM EDT [facility] Blood Venous blood specimen / Unknown Venipuncture / Unknown 07/08/2025 11:53 PM EDT 07/08/2025 11:59 PM EDT us Luanne Crawford MD LAB BLOOD ORDERABLES Final Result Performing Organization Address [facility] Phone Number [facility] [address] [place] [address] * (ABNORMAL) Protime-INR (07/08/2025 11:53 PM EDT) Prothrombin Time 15.2(H) 12.0 - 14.3 sec LAB COAGULATION METHOD 07/09/2025 12:32 AM EDT [facility] INR 1.2(H) 0.9 - 1.1 LAB COAGULATION METHOD 07/09/2025 12:32 AM EDT [facility] Blood Venous blood specimen / Unknown Venipuncture / Unknown 07/08/2025 11:53 PM EDT 07/08/2025 11:59 PM EDT Narrative [facility] - 07/09/2025 12:32 AM EDT OPTIMAL INR RANGES FOR PATIENT ON ORAL ANTICOAGULANT THERAPY Prevention of venous thromboembolism INR 2.0 to 3.0 In patients with heart disease: Atrial fibrillation INR 2.0 to 3.0 Valvular heart disease INR 2.0 to 3.0 Tissue heart valves INR 2.0 to 3.0 Mechanical prosthetic valves INR 2.5 to 3.5 Prevention of recurrent [place] INR 2.5 to 3.5 us Luanne Crawford MD LAB BLOOD ORDERABLES Final Result Performing Organization Address City/[facility] Co de Phone Number [facility] [address] [place] [address] * Phosphorus, Plasma (07/08/2025 11:52 PM EDT) Phosphorus, Plasma 3.6 2.5 - 4.5 mg/dL 07/09/2025 12:27 AM EDT [facility] Blood Venous blood specimen / Unknown Venipuncture / Unknown 07/08/2025 11:52 PM EDT 07/08/2025 11:59 PM EDT Luanne Crawford MD LAB BLOOD ORDERABLES Final Result Performing Organization Address City/[facility]/ZIP Co de Phone Number [facility] [address] [place] [address] * (ABNORMAL) Magnesium, Plasma (07/08/2025 11:52 PM EDT) Magnesium, Plasma 1.8(L) 1.9 - 2.4 mg/dL 07/09/2025 12:27 AM EDT [facility] Blood Venous blood specimen / Unknown Venipuncture / Unknown 07/08/2025 11:52 PM EDT 07/08/2025 11:59 PM EDT Luanne Crawford MD LAB BLOOD ORDERABLES Final Result Performing Organization Address [facility]/ZIP Co de Phone Number [facility] [address] [place] [address] * (ABNORMAL) Basic Metabolic Panel, Plasma (07/08/2025 11:52 PM EDT) Glucose, Plasma 314(H) 74 - 99 mg/dL 07/09/2025 12:27 AM EDT [facility] BUN, Plasma 32(H) 7 - 21 mg/dL 07/09/2025 12:27 AM EDT [facility] Creatinine, Plasma 1.80(H) 0.60 - 1.10 mg/dL 07/09/2025 12:27 AM EDT [facility] BUN/Creatinine Ratio 18 07/09/2025 12:27 AM EDT [facility] Sodium, Plasma 136 136 - 145 mmol/L 07/09/2025 12:27 AM EDT [facility] Potassium, Plasma 3.6 3.6 - 4.9 mmol/L 07/09/2025 12:27 AM EDT [facility] Chloride, Plasma 100 97 - 107 mmol/L 07/09/2025 12:27 AM EDT [facility] CO2, Plasma 23 22 - 29 mmol/L 07/09/2025 12:27 AM EDT [facility] Anion Gap 13 6 - 16 mmol/L 07/09/2025 12:27 AM EDT [facility] Total Calcium, Plasma 8.9 8.9 - 10.2 mg/dL 07/09/2025 12:27 AM EDT [facility] eGFRcr 34.2 mL/min/1.7 3m*2 07/09/2025 12:27 AM EDT [facility] Comment:Reported eGFRcr in m L/min/1.73m2 is based the CKD-EPI 2020 equation that does not use a race coefficient. Blood Venous blood specimen / Unknown Venipuncture / Unknown 07/08/2025 11:52 PM EDT 07/08/2025 11:59 PM EDT us Luanne Crawford MD LAB BLOOD ORDERABLES Final Result [facility] [address] [place] [address] * (ABNORMAL) CBC W/O Differential (07/08/2025 11:52 PM EDT) WBC Count 22.50(H) 3.70 - 10.30 10*3/uL LAB HEMATOLOGY METHOD 07/09/2025 12:16 AM EDT [facility] RBC Count 3.60(L) 3.90 - 5.20 10*6/uL LAB HEMATOLOGY METHOD 07/09/2025 12:16 AM EDT [facility] HGB 10.0(L) 11.2 - 15.7 g/dL LAB HEMATOLOGY METHOD 07/09/2025 12:16 AM EDT [facility] HCT 30.8(L) 34.0 - 45.0 % LAB HEMATOLOGY METHOD 07/09/2025 12:16 AM EDT [facility] Platelet Count 273 155 - 369 10*3/uL LAB HEMATOLOGY METHOD 07/09/2025 12:16 AM EDT [facility] MCV 86 79 - 98 fL LAB HEMATOLOGY METHOD 07/09/2025 12:16 AM EDT [facility] MCH 27.8 26.0 - 32.0 pg LAB HEMATOLOGY METHOD 07/09/2025 12:16 AM EDT [facility] MCHC 32.5 30.7 - 35.5 g/dL LAB HEMATOLOGY METHOD 07/09/2025 12:16 AM EDT [facility] RDW 16.9(H) 11.5 - 14.5 % LAB HEMATOLOGY METHOD 07/09/2025 12:16 AM EDT [facility] MPV 10.3 8.8 - 12.5 fL LAB HEMATOLOGY METHOD 07/09/2025 12:16 AM EDT [facility] nRBC 0.0 <=0.0 per 100 WBCs LAB HEMATOLOGY METHOD 07/09/2025 12:16 AM EDT [facility] Blood Venous blood specimen / Unknown Venipuncture / Unknown 07/08/2025 11:52 PM EDT 07/08/2025 11:59 PM EDT Luanne Crawford MD LAB BLOOD ORDERABLES Final Result [facility] [address] [place] [address] * Richie auris Surveillance by PCR (07/08/2025 11:50 PM EDT) Pathologist [facility] Richie auris PCR Result Not Detected Not Detected 07/09/2025 11:26 AM EDT [facility] Swab (Axilla and Groin) Non-blood Collection / Unknown 07/08/2025 11:50 PM EDT 07/09/2025 12:17 AM EDT Narrative [facility] - 07/09/2025 11:26 AM EDT This PCR assay was developed and its performance characteristics determined by [facility] as appropriate for clinical purposes. This assay has not been cleared or approved by the FDA, but is performed in a CLIA regulated laboratory that is qualified to perform high-complexity testing. Luanne Crawford MD LAB MICROBIOLOGY - GENERAL ORDERABLES Final Result Performing Organization Address [facility] Co de Phone Number [facility] [address] [place] [address] * Multi Drug Resistance Test (07/08/2025 11:50 PM EDT) Culture No growth at day 1 07/10/2025 5:45 AM EDT [facility] Swab (Nares and Leann Rectal) Non-blood Collection / Unknown 07/08/2025 11:50 PM EDT 07/09/2025 12:17 AM EDT Narrative [facility] - 07/10/2025 5:45 AM EDT This test was developed and its performance characteristics determined by the [facility]. Although the media is FDA-approved, it is not FDA-approved for all specimen types submitted. The FDA has determined that such clearance or approval is not necessary. This test is used for surveillance purposes. It should not be regarded as investigational or for research. The [facility] is certified under the Clinical Laboratory Improvement Amendments of 1988 (CLIA-88) as qualified to perform high complexity clinical laboratory testing. Luanne Crawford MD LAB MICROBIOLOGY - GENERAL ORDERABLES Final Result Performing Organization Address [facility] de Phone Number [facility] [address] [place] [address] * (ABNORMAL) Blood gas, arterial (07/08/2025 11:50 PM EDT) pH, Arterial 7.27(L) 7.35 - 7.45 LAB HEMATOLOGY METHOD 07/09/2025 12:00 AM EDT [facility] pCO2, Arterial 53(H) 35 - 48 mmHg LAB HEMATOLOGY METHOD 07/09/2025 12:00 AM EDT [facility] pO2, Arterial 114(H) 83 - 108 mmHg LAB HEMATOLOGY METHOD 07/09/2025 12:00 AM EDT [facility] SO2, Measured, Arterial 99(H) 94 - 98 % LAB HEMATOLOGY METHOD 07/09/2025 12:00 AM EDT [facility] Base Excess, Arterial -3.1(L) -2.0 - 3.0 mmol/L LAB HEMATOLOGY METHOD 07/09/2025 12:00 AM EDT [facility] Bicarbonate, Calculated, Arterial 24 22 - 26 mmol/L LAB HEMATOLOGY METHOD 07/09/2025 12:00 AM EDT [facility] Hematocrit, Whole Blood 31.0(L) 34.0 - 45.0 % LAB HEMATOLOGY METHOD 07/09/2025 12:00 AM EDT [facility] Sodium, Whole Blood 134(L) 136 - 145 mmol/L LAB HEMATOLOGY METHOD 07/09/2025 12:00 AM EDT [facility] Potassium, Whole Blood 3.5(L) 3.6 - 4.9 mmol/L LAB HEMATOLOGY METHOD 07/09/2025 12:00 AM EDT [facility] Chloride, Whole Blood 101 97 - 107 mmol/L LAB HEMATOLOGY METHOD 07/09/2025 12:00 AM EDT [facility] Glucose, Whole Blood 315(H) 74 - 99 mg/dL LAB HEMATOLOGY METHOD 07/09/2025 12:00 AM EDT [facility] Ionized Calcium, Whole Blood 5.1 4.6 - 5.1 mg/dL LAB HEMATOLOGY METHOD 07/09/2025 12:00 AM EDT [facility] Lactate, Arterial, Whole Blood 1.7(H) 0.5 - 1.6 mmol/L LAB HEMATOLOGY METHOD 07/09/2025 12:00 AM EDT [facility] Blood Arterial blood specimen / Unknown Arterial Puncture / Unknown 07/08/2025 11:50 PM EDT 07/08/2025 11:59 PM EDT us Richard Betts CRNA LAB BLOOD ORDERABLES Sarah bennett Result [facility] [address] [place] [address] * (ABNORMAL) POCT glucose meter (07/08/2025 11:49 [...] Comment 07/08/2025 11:50 PM EDT [facility] Member Of Technical Staff ID Mary Cotto 07/08/2025 11:50 PM EDT [facility]ARE LAB Device ID [id number] 07/08/2025 11:50 PM EDT [facility] Specimen Type POC Arterial 07/08/2025 11:50 PM EDT [facility] Blood Arterial blood specimen / Unknown 07/08/2025 11:49 PM EDT 07/08/2025 11:50 PM EDT Luanne Crawford MD LAB POINT OF CARE TEST DOCKED DEVICE UNSOLICITED RESULTS Final Result [facility] [address] [place] [address] * (ABNORMAL) Tissue Culture and Gram Stain (07/08/2025 10:48 PM EDT) Culture Light Growth 07/13/2025 1:13 PM EDT [facility] Culture 1+ Schaalia turicensis (formerly known as Actinomyces turicensis)(A) 07/13/2025 1:13 PM EDT [facility] Comment: The organism value for this result has been updated. These results have been appended to the previously preliminary verified report. This is a corrected result. Previous organism was Gram positive anthony on 07/11/2025 at 1052 EDT. Culture 1+ Staphylococcus hominis(A) 07/13/2025 1:13 PM EDT [facility] Comment: This isolate has been identified using the FDA Approved [employer] [place] System The organism value for this result has been updated. These results have been appended to the previously preliminary verified report. Gram Stain Result Few Polymorphonuclear leukocytes(A) 07/13/2025 1:13 PM EDT [facility] Gram Stain Result Numerous Gram negative rods(A) 07/13/2025 1:13 PM EDT [facility] Gram Stain Result Few Gram positive cocci in pairs(A) 07/13/2025 1:13 PM EDT [facility] Tissue Topography unknown / Unknown 07/08/2025 10:48 PM EDT 07/09/2025 12:14 AM EDT Comment:Pre-op diagnosis: Necrotizing fasciitis (CMS/HCC) [M72.6] us Luanne Crawford MD LAB MICROBIOLOGY - GENERAL ORDERABLES Final Result [facility] [address] [place] [address] * Transfuse fresh frozen plasma (07/08/2025 10:35 PM EDT) Richard Betts BUSINESS RULES ANALYST BLOOD TRANSFUSION ORDERAB LES Final Result * Transfuse RBC (07/08/2025 10:29 PM EDT) Richard N Yongkangg BUSINESS RULES ANALYST BLOOD TRANSFUSION ORDERAB LES Final Result * (ABNORMAL) Blood gas panel, arterial (07/08/2025 10:08 PM EDT) pH, Arterial 7.28(L) 7.35 - 7.45 LAB HEMATOLOGY METHOD 07/08/2025 10:15 PM EDT [facility] pCO2, Arterial 50(H) 35 - 48 mmHg LAB HEMATOLOGY METHOD 07/08/2025 10:15 PM EDT [facility] pO2, Arterial 121(H) 83 - 108 mmHg LAB HEMATOLOGY METHOD 07/08/2025 10:15 PM EDT [facility] SO2, Measured, Arterial 99(H) 94 - 98 % LAB HEMATOLOGY METHOD 07/08/2025 10:15 PM EDT [facility] Base Excess, Arterial -3.6(L) -2.0 - 3.0 mmol/L LAB HEMATOLOGY METHOD 07/08/2025 10:15 PM EDT [facility] Bicarbonate, Calculated, Arterial 23 22 - 26 mmol/L LAB HEMATOLOGY METHOD 07/08/2025 10:15 PM EDT [facility] Hematocrit, Whole Blood 29.9(L) 34.0 - 45.0 % LAB HEMATOLOGY METHOD 07/08/2025 10:15 PM EDT [facility] Sodium, Whole Blood 133(L) 136 - 145 mmol/L LAB HEMATOLOGY METHOD 07/08/2025 10:15 PM EDT [facility] Potassium, Whole Blood 3.5(L) 3.6 - 4.9 mmol/L LAB HEMATOLOGY METHOD 07/08/2025 10:15 PM EDT [facility] Chloride, Whole Blood 101 97 - 107 mmol/L LAB HEMATOLOGY METHOD 07/08/2025 10:15 PM EDT [facility] Glucose, Whole Blood 351(H) 74 - 99 mg/dL LAB HEMATOLOGY METHOD 07/08/2025 10:15 PM EDT [facility] Ionized Calcium, Whole Blood 4.5(L) 4.6 - 5.1 mg/dL LAB HEMATOLOGY METHOD 07/08/2025 10:15 PM EDT [facility] Lactate, Arterial, Whole Blood 2.1(H) 0.5 - 1.6 mmol/L LAB HEMATOLOGY METHOD 07/08/2025 10:15 PM EDT [facility] Blood Arterial blood specimen / Unknown 07/08/2025 10:08 PM EDT 07/08/2025 10:14 PM EDT Comment:Pre-op diagnosis: Necrotizing fasciitis (CMS/HCC) [M72.6] us Luanne Crawford MD LAB BLOOD ORDERABLES Final Result Performing Organization Address City/State/[facility] Co de Phone Number [facility] [address] [place] [address] * Surgical Pathology Exam (07/08/2025 10:07 PM EDT) Case Report Surgical Pathology Case: [id number] Authorizing Provider: Luanne Crawford MD Collected: 07/08/20253 Ordering Location: [facility] A OPERATING ROOM Received: 07/09/2025 2157 Pathologist: Boaz Fernandez MD Specimens: A) - Other (specify site), saphenous vein B) - Other (specify site), right leg 07/10/2025 3:45 PM EDT [facility] Final Diagnosis A. SAPHENOUS VEIN SEGMENT, REMOVAL: - SCLEROTIC VEIN WITH ADVENTITIAL INFLAMMATION. B. RIGHT LEG TISSUE DEBRIDEMENT: - ACUTE NECROTIZING FASCIITIS OF SKIN AND SOFT TISSUE. 07/10/2025 3:45 PM EDT [facility] at 1545 EDT Clinical Information Necrotizing fasciitis; post recent boil self popped wound. 50 y.o. female with PMH of DM, hidradenitis supparativa, current smoker (1.5 ppd), UTI, depression, anxiety, asthma, HLD, Celiac disease, 07/10/2025 3:45 PM EDT [facility] Gross Description A. SAPHENOUS VEIN Specimen is received fresh and placed in formalin labeled saphenous vein. Received is a segment of vessel that measures 8.5 cm in length and up to 0.7 cm in diameter. Specimen is sectioned to reveal a pinpoint lumen with dried blood. Applications Scientist sections are taken and submitted in cassette A1. Cold Time: 8h 56m Abhishek Baptiste MD B. RIGHT LEG Specimen is received fresh labeled right leg. Received are numerous fragments of skin and underlying soft tissue that measure in aggregate 25.0 x 25.0 x 7.5 cm. Scattered areas of skin and soft tissue notable for being green-black, foul-smelling and extensively necrotic. Applications Scientist sections are taken and submitted in cassettes B1-B2. Abhishek Baptiste MD 07/10/2025 3:45 PM EDT [facility] Note: A resident was involved in the service. I attest I examined the relevant preparations for the specimens and confirmed the diagnosis or interpretation. 07/10/2025 3:45 PM EDT [facility] Tissue Topography unknown / Unknown 07/08/2025 10:07 PM EDT 07/09/2025 7:40 AM EDT Comment:Pre-op diagnosis: Necrotizing fasciitis (CMS/HCC) [M72.6] Tissue specimen (specimen) Topography unknown / Unknown 07/08/2025 10:49 PM EDT 07/09/2025 7:40 AM EDT Comment:Pre-op diagnosis: Necrotizing fasciitis (CMS/HCC) [M72.6] us Luanne Crawford MD LAB PATHOLOGY ORDERABLES F inal Result [facility] [address] [place] [address] * Transfuse fresh frozen plasma (07/08/2025 10:04 PM EDT) us Richard N Yongbang BUSINESS RULES ANALYST BLOOD TRANSFUSION ORDERAB LES Final Result * Transfuse fresh frozen plasma: 1 Units (07/08/2025 10:04 PM EDT) us Richard N Yongbang BUSINESS RULES ANALYST BLOOD TRANSFUSION ORDERAB LES Final Result * Transfuse RBC (07/08/2025 9:41 PM EDT) Richard N Yongbang BUSINESS RULES ANALYST BLOOD TRANSFUSION ORDERAB LES Final Result * Transfuse RBC: 1 Units (07/08/2025 9:41 PM EDT) us Richard N Yongbang BUSINESS RULES ANALYST BLOOD TRANSFUSION ORDERAB LES Final Result * Prepare Fresh Frozen Plasma: 2 Units (07/08/2025 9:24 PM EDT) Product Code F8814K15 CH BLOO D BANK Dispense Status Transfused BLOOD BANK Blood Expiration Date [id number] BLOOD BANK Unit Number [id number] CH B LOOD BANK Product Blood Type 5100 BLOOD BANK Blood Type O+ CH BLOOD BANK Product Code [id number] BLOO D BANK Dispense Status Transfused BLOOD BANK Blood Expiration Date [id number] BLOOD BANK Unit Number [id number] B LOOD BANK Product Blood Type 5100 BLOOD BANK Blood Type O+ CH BLOOD BANK Blood Venous blood specimen / Unknown us Richard N Yongbang BUSINESS RULES ANALYST BLOOD BANK PRODUCT ORDERA BLES Final Result BLOOD BANK [address] [place] [address], [place] * Prepare Leukocyte Reduced RBC: 2 Units (07/08/2025 9:23 PM EDT) Product Code Q7503K22 CH BLOO D BANK Dispense Status Transfused CH BLOOD BANK Blood Expiration Date CH BLOOD BANK Unit Number [id number] CH B LOOD BANK Product Blood Type 5100 CH BLOOD BANK Blood Type O+ CH BLOOD BANK Crossmatch Compatible CH BLOOD BANK Product Code [id number] CH BLOO D BANK Dispense Status Transfused CH BLOOD BANK Blood Expiration Date CH BLOOD BANK Unit Number [id number] CH B LOOD BANK Product Blood Type 5100 CH BLOOD BANK Blood Type O+ CH BLOOD BANK Crossmatch Compatible CH BLOOD BANK Other us Richard Betts CRNA BLOOD BANK PRODUCT ORDERA BLES Final Result BLOOD BANK [address] [place] [address], * (ABNORMAL) Abscess Culture and Gram Stain (07/08/2025 9:06 PM EDT) Culture Light Growth 07/13/2025 1:13 PM EDT [facility] Culture 1+ Mixed skin silvestre(A) 07/13/2025 1:13 PM EDT [facility] Comment: The organism value [...] as Actinomyces turicensis)(A) 07/13/2025 1:13 PM EDT [facility] Comment: This result was determined by MALDI tof Mass spectrometry. This assay was developed and its performance characteristics determined by [facility] as appropriate for clinical purposes. [...] Gram positive cocci(A) 07/13/2025 1:13 PM EDT [facility] Gram Stain Result Few Gram variable rods(A) 07/13/2025 1:13 PM EDT [facility] Gram Stain Result Moderate Gram positive rods(A) 07/13/2025 1:13 PM EDT [facility] Gram Stain Result Numerous Gram negative rods(A) 07/13/2025 1:13 PM EDT [facility] Gram Stain Result Numerous Gram negative coccobacilli(A) 07/13/2025 1:13 PM EDT [facility] Gram Stain Result Moderate Polymorphonuclear leukocytes(A) 07/13/2025 1:13 PM EDT [facility] Swab Topography unknown / Unknown 07/08/2025 9:06 PM EDT 07/08/2025 9:15 PM EDT Comment:Pre-op diagnosis: Necrotizing fasciitis (CMS/HCC) [M72.6] us Luanne Crawford MD LAB MICROBIOLOGY - GENERAL ORDERABLES Final Result [facility] [address] [place] [address] * (ABNORMAL) POCT arterial blood gas gem (07/08/2025 8:51 PM EDT) pH, Arterial 7.28(L) 7.35 - 7.45 07/08/2025 8:53 PM EDT [facility] pCO2, Arterial 53(H) 35 - 48 mm Hg 07/08/2025 8:53 PM EDT [facility] pO2, Arterial 152(H) 83 - 108 mm Hg 07/08/2025 8:53 PM EDT [facility] SO2, Arterial 99(H) 94 - 98 % 07/08/2025 8:53 PM EDT [facility] Base Excess, Arterial -2.3(L) -2 - 3 mmol/L 07/08/2025 8:53 PM EDT [facility] HCO3, Arterial 24.9 22 - 26 mmol/L 07/08/2025 8:53 PM EDT [facility] Total Hemoglobin, Arterial, Whole Blood 10.9(L) 11.2 - 15.7 g/dL 07/08/2025 8:53 PM EDT [facility] Hematocrit, Arterial 33.0(L) 34.0 - 45.0 % 07/08/2025 8:53 PM EDT [facility] Sodium, Arterial 131(L) 136 - 145 mmol/L 07/08/2025 8:53 PM EDT [facility] Potassium, Arterial 3.8 3.6 - 4.9 mmol/L 07/08/2025 8:53 PM EDT [facility] Chloride, Whole Blood 98 97 - 107 mmol/L 07/08/2025 8:53 PM EDT [facility] Glucose, Arterial 418(H) 74 - 99 mg/dL 07/08/2025 8:53 PM EDT [facility] Ionized Calcium, Arterial 4.9 4.6 - 5.1 mg/dL 07/08/2025 8:53 PM EDT [facility] Lactate, Arterial 1.6 0.5 - 1.6 mmol/L 07/08/2025 8:53 PM EDT [facility] Body Temperature 37.0 Celsius 07/08/2025 8:53 PM EDT [facility] pH, Temp Corrected, Arterial 7.28(L) 7.35 - 7.45 07/08/2025 8:53 PM EDT [facility] pCO2, Temp Corrected, Arterial 53(H) 35 - 48 mm Hg 07/08/2025 8:53 PM EDT [facility] pO2, Temp Corrected, Arterial 152(H) 83 - 108 mm Hg 07/08/2025 8:53 PM EDT [facility] Member Of Technical Staff ID Yadi Goel 07/08/2025 8:53 PM EDT [facility] Blood, Arterial Whole blood specimen / Unknown 07/08/2025 8:51 PM EDT 07/08/2025 8:53 PM EDT us Luanne Crawford MD LAB POINT OF CARE TEST DOCKED DEVICE UNSOLICITED RESULTS Final Result [facility] [address] [place] [address] * ED HIV 1/2 Antibody/Antigen Screen w/Reflex to HIV 1/2 Differentiation (07/08/2025 6:14 PM EDT) Pathologist [facility] HIV 1 & 2 Antibody/Antigen Screen Non Reactive Non Reactive 07/08/2025 7:12 PM EDT [facility] Comment:Screening for HIV 1 & 2 antibodies, and P24 antigen is NONREACTIVE. No confirmatory testing is required. Blood Venous blood specimen / Unknown Venipuncture / Unknown 07/08/2025 6:14 PM EDT 07/08/2025 6:30 PM EDT My Charles MD LAB BLOOD ORDERABLES Fi nal Result [facility] [address] [place] [address] * Hepatitis C Antibody - ED (07/08/2025 6:14 PM EDT) [facility] Hepatitis C Antibody Negative Negative 07/08/2025 7:12 PM EDT [facility] Blood Venous blood specimen / Unknown Venipuncture / Unknown 07/08/2025 6:14 PM EDT 07/08/2025 6:30 PM EDT My Charles MD LAB BLOOD ORDERABLES Fi nal Result Performing Organization Address [facility] [place] [address] * (ABNORMAL) C-Reactive protein (07/08/2025 6:14 PM EDT) [facility] CRP, Plasma 462.2(H) <=8.0 mg/L 07/08/2025 7:18 PM EDT [facility] Blood Venous blood specimen / Unknown Venipuncture / Unknown 07/08/2025 6:14 PM EDT 07/08/2025 6:23 PM EDT Narrative [facility] - 07/08/2025 7:18 PM EDT This CRP test is appropriate for assessment of infection, systemic inflammation and/or tissue injury. To assess cardiovascular disease risk order high sensitivity CRP (CRPH). My Charles MD LAB BLOOD ORDERABLES Fi nal Result [facility] [address] [place] [address] * (ABNORMAL) Lactic acid, venous (07/08/2025 6:14 PM EDT) Pathologist [facility] Lactate, Venous, Whole Blood 2.6(H) 0.5 - 2.2 mmol/L LAB HEMATOLOGY METHOD 07/08/2025 6:29 PM EDT [facility] Blood Venous blood specimen / Unknown Venipuncture / Unknown 07/08/2025 6:14 PM EDT 07/08/2025 6:23 PM EDT My Charles MD LAB BLOOD ORDERABLES Fi nal Result Performing Organization Address [facility] Co de Phone Number [facility] [address] [place] [address] * Type and screen (07/08/2025 6:14 PM EDT) Pathologist [facility] ABO/Rh O Positive 07/08/2025 6:10 PM EDT BLOOD BANK Antibody Screen Negative 07/08/2025 6:10 PM EDT BLOOD BANK Specimen Expiration 07/11/2025 23:59 07/08/2025 6:10 PM EDT BLOOD BANK Blood Venous blood specimen / Unknown Venipuncture / Unknown 07/08/2025 6:14 PM EDT 07/08/2025 6:18 PM EDT My Charles MD LAB BLOOD BANK TEST ORD ERABLES Final Result Performing Organization Address [facility] Co de Phone Number BLOOD BANK [address] [place] [address], * (ABNORMAL) PT-INR (07/08/2025 6:14 PM EDT) Prothrombin Time 15.3(H) 12.0 - 14.3 sec 07/08/2025 6:56 PM EDT [facility] INR 1.2(H) 0.9 - 1.1 07/08/2025 6:56 PM EDT [facility] Blood Venous blood specimen / Unknown Venipuncture / Unknown 07/08/2025 6:14 PM EDT 07/08/2025 6:23 PM EDT Narrative [facility] - 07/08/2025 6:56 PM EDT OPTIMAL INR RANGES FOR PATIENT ON ORAL ANTICOAGULANT THERAPY Prevention of venous thromboembolism INR 2.0 to 3.0 In patients with heart disease: Atrial fibrillation INR 2.0 to 3.0 Valvular heart disease INR 2.0 to 3.0 Tissue heart valves INR 2.0 to 3.0 Mechanical prosthetic valves INR 2.5 to 3.5 Prevention of recurrent [place] INR 2.5 to 3.5 us My Charles MD LAB BLOOD ORDERABLES Fi nal Result [facility] [address] [place] [address] * (ABNORMAL) CBC w/diff (07/08/2025 6:14 PM EDT) WBC Count 26.15(H) 3.70 - 10.30 10*3/uL LAB HEMATOLOGY METHOD 07/08/2025 9:04 PM EDT [facility] RBC Count 3.97 3.90 - 5.20 10*6/uL LAB HEMATOLOGY METHOD 07/08/2025 9:04 PM EDT [facility] HGB 10.9(L) 11.2 - 15.7 g/dL LAB HEMATOLOGY METHOD 07/08/2025 9:04 PM EDT [facility] HCT 33.6(L) 34.0 - 45.0 % LAB HEMATOLOGY METHOD 07/08/2025 9:04 PM EDT [facility] Platelet Count 329 155 - 369 10*3/uL LAB HEMATOLOGY METHOD 07/08/2025 9:04 PM EDT [facility] MCV 85 79 - 98 fL LAB HEMATOLOGY METHOD 07/08/2025 9:04 PM EDT [facility] MCH 27.5 26.0 - 32.0 pg LAB HEMATOLOGY METHOD 07/08/2025 9:04 PM EDT [facility] MCHC 32.4 30.7 - 35.5 g/dL LAB HEMATOLOGY METHOD 07/08/2025 9:04 PM EDT [facility] RDW 17.3(H) 11.5 - 14.5 % LAB HEMATOLOGY METHOD 07/08/2025 9:04 PM EDT [facility] MPV 10.1 8.8 - 12.5 fL LAB HEMATOLOGY METHOD 07/08/2025 9:04 PM EDT [facility] nRBC 0.0 <=0.0 per 100 WBCs LAB HEMATOLOGY METHOD 07/08/2025 9:04 PM EDT [facility] Differential Type Automated LAB HEMATOLOGY METHOD 07/08/2025 9:04 PM EDT [facility] Neutrophils % 91 % LAB HEMATOLOGY METHOD 07/08/2025 9:04 PM EDT [facility] Lymphocytes % 4 % LAB HEMATOLOGY METHOD 07/08/2025 9:04 PM EDT [facility] Monocytes % 4 % LAB HEMATOLOGY METHOD 07/08/2025 9:04 PM EDT [facility] Eosinophils % 0 % LAB HEMATOLOGY METHOD 07/08/2025 9:04 PM EDT [facility] Basophils % 0 % LAB HEMATOLOGY METHOD 07/08/2025 9:04 PM EDT [facility] Immature Granulocytes % 1 % LAB HEMATOLOGY METHOD 07/08/2025 9:04 PM EDT [facility] Neutrophils Absolute 23.61(H) 1.60 - 6.10 10*3/uL LAB HEMATOLOGY METHOD 07/08/2025 9:04 PM EDT [facility] Lymphocytes Absolute 1.15(L) 1.20 - 3.90 10*3/uL LAB HEMATOLOGY METHOD 07/08/2025 9:04 PM EDT [facility] Monocytes Absolute 0.98(H) 0.30 - 0.90 10*3/uL LAB HEMATOLOGY METHOD 07/08/2025 9:04 PM EDT [facility] Eosinophils Absolute 0.04 0.00 - 0.50 10*3/uL LAB HEMATOLOGY METHOD 07/08/2025 9:04 PM EDT [facility] Basophils Absolute 0.09 0.00 - 0.10 10*3/uL LAB HEMATOLOGY METHOD 07/08/2025 9:04 PM EDT [facility] Immature Granulocytes Absolute 0.25(H) 0.00 - 0.06 10*3/uL LAB HEMATOLOGY METHOD 07/08/2025 9:04 PM EDT [facility] Blood Venous blood specimen / Unknown Venipuncture / Unknown 07/08/2025 6:14 PM EDT 07/08/2025 6:23 PM EDT Narrative [facility] - 07/08/2025 9:04 PM EDT Therapeutic decision making should be based on absolute values, rather than percentages. us My Charles MD LAB BLOOD ORDERABLES Fi nal Result [facility] [address] [place] [address] * (ABNORMAL) CMP (07/08/2025 6:14 PM EDT) Glucose, Plasma 411(H) 74 - 99 mg/dL 07/08/2025 7:18 PM EDT [facility] BUN, Plasma 33(H) 7 - 21 mg/dL 07/08/2025 7:18 PM EDT [facility] Creatinine, Plasma 1.99(H) 0.60 - 1.10 mg/dL 07/08/2025 7:18 PM EDT [facility] BUN/Creatinine Ratio 17 07/08/2025 7:18 PM EDT [facility] Sodium, Plasma 131(L) 136 - 145 mmol/L 07/08/2025 7:18 PM EDT [facility] Potassium, Plasma 4.0 3.6 - 4.9 mmol/L 07/08/2025 7:18 PM EDT [facility] Chloride, Plasma 93(L) 97 - 107 mmol/L 07/08/2025 7:18 PM EDT [facility] CO2, Plasma 22 22 - 29 mmol/L 07/08/2025 7:18 PM EDT [facility] Anion Gap 16 6 - 16 mmol/L 07/08/2025 7:18 PM EDT [facility] Total Calcium, Plasma 9.3 8.9 - 10.2 mg/dL 07/08/2025 7:18 PM EDT [facility] Total Protein 6.0(L) 6.3 - 7.9 g/dL 07/08/2025 7:18 PM EDT [facility] Albumin, Plasma 2.6(L) 3.5 - 5.2 g/dL 07/08/2025 7:18 PM EDT [facility] AST, Plasma 16 10 - 35 U/L 07/08/2025 7:18 PM EDT [facility] ALT, Plasma 15 10 - 35 U/L 07/08/2025 7:18 PM EDT [facility] Alkaline Phosphatase, Plasma 165(H) 35 - 104 U/L 07/08/2025 7:18 PM EDT [facility] Total Bilirubin, Plasma 0.4 0.2 - 1.1 mg/dL 07/08/2025 7:18 PM EDT [facility] eGFRcr 30.3 mL/min/1.7 3m*2 07/08/2025 7:18 PM EDT [facility] Comment:Reported eGFRcr in m L/min/1.73m2 is based the CKD-EPI 2020 equation that does not use a race coefficient. Blood Venous blood specimen / Unknown Venipuncture / Unknown 07/08/2025 6:14 PM EDT 07/08/2025 6:23 PM EDT us My Charles MD LAB BLOOD ORDERABLES Fi nal Result [facility] [address] [place] [address] * RI CRITICAL CARE, E/M 30-74 MINUTES [...] this encounter Visit Diagnoses Diagnosis Necrotizing fasciitis ([facility]/HCC)- Primary Necrotizing fasciitis Necrotizing fasciitis (CMS/HCC) Necrotizing fasciitis 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) Morbid (severe) obesity due to excess calories (CMS/HCC) Septic shock ([facility]/HCC) Acute respiratory failure with hypoxia Type 2 diabetes mellitus with hyperglycemia, without long-term current use of insulin Celiac disease Respiratory insufficiency Other dyspnea and respiratory abnormality DM (diabetes mellitus) Type II or unspecified type diabetes mellitus without mention of complication, not stated as uncontrolled Hidradenitis Smoker Tobacco use disorder Acute respiratory failure Septic shock ([facility]/HCC) Absence seizure ([facility]) 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 [...] Units, Subcutaneous, 2 times nightly (2100 & 030), First dose on Tue07/11/25 at [...] 1 dose, On Tue07/17/25 at 0730, Routine 100 (New Bag - Provider: Josi Ann RN) [...] Comment: no wv in place due to [facility] dc) polyethylene glycol (Miralax) packet 17 g 17 g, Oral, Daily, First dose on Tue07/12/25 at 1045, Until Discontinued, Routine 1002 (Not Given - Provider: Josi Ann RN - Reason: Patient/family refused) 08 (Not Given - Provider: Josi Ann RN - Reason: Patient/family refused) 912 (Not Given - Provider: Kalyn Martell [...] Ann RN)2312 (Given - Provider: Inessa Almazan, NAHID) 1242 (Canceled Entry - Provider: Josi Ann [...] Starting on Tue07/11/25 at 0712, Until Tomasa 07/11/25 at 0715, [...] documented as of this encounter Care Teams Bag Machine Tender Relationship Specialty Start Date End Date Yenny Dhillon APRN [address] [place] [address] PCP - General 07/22/23 documented as of this encounter
--- OUTSIDE RECORDS SUMMARY | 2025-07-11 14:12 | XMS_ITS | Encounter Summary ---
Author Organization Healthcare Address [address] [place] [address] Care Team Providers Care Spinner Frame Name Role Phone Yenny Dhillon APRN Primary Care Provider [phone] Reason for Visit * Auth/Cert (Routine) Specialty Diagnoses / Procedures Referred By Bharati t Referred To Contact Diagnoses Necrotizing fasciitis (CMS/HCC) Necrotizing Fascitis Brittany Crawford MD [address] [facility] [address] [place] [address] Phone: tel: fax: P[facility] A Inpatient [address] [place] [address] Phone: tel: Referral ID Status Reason Start Date Expiration Date Visits Re quested Visits Authorized [id number] 1 1 Encounter Details Date Type Department Care Team ([facility] st Contact Info) Description 07/11/2025 2:12 PM EDT Anesthesia Event [facility] A OPERATING ROOM [address] [place] [address] Eddie Fulton MD [address] [place] [address] Yadi Goel MD [address] [place] [address] Anesthesia Record Procedure Summary Procedure [...] and Staff Patient location during procedure: OR SHOE STOCK ASSOCIATE: Luis Manuel Sharpe CRNA Performed: SHOE STOCK ASSOCIATE Patient Condition Indications for airway management: anesthesia [...] APPLICATION OR REPLACEMENT, WOUND VAC (Right) Location: [facility] / [place] OR Surgeons: Dorcas Hennessy MD HPI Ashley Brown is a 50 y.o. female with body mass index is 56.12 kg/m??. who presents with Necrotizing fasciitis (CMS/HCC) now for above procedure PMH: HTN, HLD, OJSEP, DMII, morbid obesity, COPD, seizures (h/o absence [...] 07/11/2025 ABG Lab Results Component Value Date TBI1IYR 28 (H) 07/10/2025 LACTATE 1.7 (H) 07/10/2025 Lab Results Component Value Date PH 7.30 (L) 07/10/2025 PCO2 57 (H) 07/10/2025 PO2 80 (L) 07/10/2025 B1EIRFWA 95 07/10/2025 BASEEXC 1.1 07/10/2025 HCTSYR 31.5 (L) 07/10/2025 KSYR 3.9 07/10/2025 CLSYR 103 07/10/2025 GLUSYR 206 (H) 07/10/2025 CAION 5.0 07/10/2025 LACTATE 1.7 (H) 07/10/2025 EKG Encounter Date: 07/08/25 ECG Adult Result Value EKG DIAGNOSIS CLASS Abnormal Ventricular Rate 79 Atrial Rate 79 OK Interval 188 QRSD Interval 90 QT Interval 354 QTC Interval 405 P [place] 44 R [place] 17 T Wave [place] 27 Diagnosis Sinus rhythm with frequent premature [...] Description 08/20/2025 10:30 AM EDT Office Visit [facility] General Surgery [address] [place] [address] Lilliana Morfin APRN [address] [place] [address] documented as of this encounter Procedures Procedure Name Priority Date/Time Associated Diagnosis Comments PB ANESTHESIA PLACEHOLDER Routine 07/11/2025 2:23 PM EDT OK AN ELECTIVE ENDOTRACHEAL AIRWAY Routine 07/11/2025 2:23 PM EDT documented in this encounter Results * OK AN ELECTIVE ENDOTRACHEAL AIRWAY, PB ANESTHESIA PLACEHOLDER (07/11/2025 2:23 PM EDT) Narrative Luis Manuel Sharpe CRNA - 07/11/2025 2:23 PM EDT Luis Manuel Sharpe CRNA 07/11/2025 2:37 PM Airway Date/Time: 07/11/2025 2:23 PM Reason: elective Airway not difficult General Information and Staff Patient location during procedure: OR SHOE STOCK ASSOCIATE: Luis Manuel Sharpe CRNA Performed: SHOE STOCK ASSOCIATE Patient Condition Indications for airway management: anesthesia [...] on Tomasa 07/11/25 at 1421, Until Tomasa 9/4/25 at 1538, Routine, Anesthesia Intraprocedure Given 07/11/2025 [...] documented as of this encounter Care Teams Spinner Frame Relationship Specialty Start Date End Date Yenny Dhillon APRN [address] [place] [address] PCP - General 07/22/23 documented as of this encounter
--- OUTSIDE RECORDS SUMMARY | 2025-07-14 14:05 | XMS_ITS | Encounter Summary ---
Author Organization Healthcare Address [address] [place] [address] Care Team Providers Care Hand Packager Name Role Phone Alejo Yenny Lit CASTRO Primary Care Provider [phone] Reason for Visit * Reason Comments Wound Check * Auth/Cert (Routine) Specialty Diagnoses / Procedures Referred By Bharati wiggins Referred To Contact Diagnoses Necrotizing fasciitis ([facility]/HCC) Necrotizing Fascitis Luanne Crawford MD [address] [address] Phone: tel: fax: [facility] A Inpatient [address] [place] [address] Phone: tel: Referral ID Status Reason Start Date Expiration Date Visits Re quested Visits Authorized [id number] 1 1 Encounter Details Date Type Department Care Team (Late st Contact Info) Description 07/14/2025 2:05 PM EDT - 07/14/2025 4:05 PM EDT Surgery [facility] OPERATING ROOM [address] [place] [address] Anne Franco MD [address] [address] Debridement, partial closure of right groin wound Surgery Details Date/Time Status Location OR Service Patient Class Case Class Case Type Trauma Case? 07/14/2025 2:05 PM Posted [facility] OR 12 General Surgery Inpatient E-Electi ve Panel 1 Procedure LRB Anes Op Region Wound Class Comments Debridement, partial closure of right groin wound Right General Class II/ Clean Contaminated Lithotomy Surgeon Surgeon Role Service Panel Anne Franco MD Primary General Surgery 1 Janell Cross MD Resident - Assisting 1 documented in [...] any time in the past 12 m [facility], were you homeless or living in a half-way (including now)? No 07/15/2025 [facility] Utilities Answer Date Recorded In the past 12 months has e electric, gas, oil, or water company [...] Sign Reading Time Taken Comments Blood Pressure 120/75 07/14/2025 1:50 PM EDT Pulse 85 07/14/2025 1:50 PM EDT Temperature 37 C (98.6 F) 07/14/2025 1:50 PM EDT Respiratory Rate 18 07/14/2025 1:50 PM EDT Oxygen Saturation 96% 07/14/2025 1:50 PM EDT Inhaled Oxygen Concentration - - Weight 177 kg (391 lb 1.5 oz) 07/08/2025 6:05 PM EDT Height 177.8 cm (5' 10 ) 07/09/2025 7:20 PM EDT Body Mass Index 51.1 07/09/2025 7:20 PM EDT documented in this encounter Functional Status * Calculated C-SSRS Risk Score (Lifetime/Recent) Answer Date of Assessment Author No Risk Indicated 07/14/2025 8:00 AM EDT Josi Ann RN * Question Answer Date of Assessment Author 1. Wish to be (Past 1 Month) No 025 8:00 AM EDT Josi Ann, RN 2. Non-Specific Active Suici silvia Thoughts (Past 1 Month) No 07/14/2025 8:00 AM EDT Sarahy Ann RN 6. Suicidal Behavior (Lifetime) No 8:00 AM EDT Josi Ann RN documented as of this encounter Discharge [...] dressing in place, sutures removed on rounds. [facility] can re- apply negative pressurewound therapy: Wound [...] please call our General Surgery Clinic at [phone]. If there are questions or concerns after discharge from the hospital, call Radha Ugalde Nurse Coordinator between 7am-3pm at [phone]. If it is after hours, weekends, and holidays please call [phone] and ask for the resident housing relocation for Emergency General Surgery. Medication requests should be made between the hours of 9:00 AM to 3:00 PM Tuesday thru Tuesday. Please note that based upon recent changes to [place] law related to prescribing opioid pain medications, [...] Patient-Specific Goal (Individualized) Outcome: Met Flowsheets (Taken 07/19/2025799) Patient/Family-Specific Goals (Include Timeframe): pt will remain [...] Infection Flowsheets (Taken 07/18/2025 1600 by Josi Ann, RN) Infection Prevention: hand [...] Outcome: Met Intervention: Promote Activity and Functional [place] Flowsheets Taken 07/18/20252319 by Inessa Almazan, RN [...] Prevent or Manage Infection Flowsheets Taken 07/19/2025 0800 by Junior Sabrina Santos Isolation Precautions: protective [...] Flowsheets Taken 07/19/2025 0223 by Inessa Almazan, secondary school teacher Interventions: medication (see MAR) Taken 07/18/2025 1600 by Josi Ann, NAHID Sleep/Rest Enhancement: awakenings minimized consistent schedule promoted Goal: Skin Health and Integrity Outcome: Met Intervention: Optimize Skin Protection Flowsheets Taken 07/19/2025 08 by Junior Sabrina [...] Note Cristina Brown 50 y.o. female CSN: [id number] Admission: 07/08/2025 5:58 PM Primary Problem: Necrotizing fasciitis (CMS/HCC) Primary Instructor Kindergarten: Primary Caregiver: Self Assistance Available at Discharge: [...] Community Agency(s): Patient's Choice of Community Agency(s): [facility] Patient/Family Anticipated Services at Transition: Patient/Family Anticipated Services at Transition: rehabilitation services DME/Equipment Needed after Discharge: Equipment Currently Used at Home: none Equipment Needed After Discharge: walker, rollator Readmission Within the Last 30 Days: Readmission Within the Last 30 Days: unable to assess Medicare Documentation: N/A Follow-up: Keaton Patel MD [address] [facility] [address] [place] [address] [facility] [address] [address] Go on 07/19/2025 Discharge Transportation: Transportation Anticipated: [...] arranged for this date at 1400 from [facility]. Annie Littlejohn * Raj Peres RN - 07/19/2025 9:44 AM EDT Images from the original note were not included. 1087 Oxycodone Oral Tablet, Immediate Release Brand Names: Oxaydo, Roxicodone What is this medicine? Oxycodone (ks-p-HCK-done) is an opioid pain reliever. It is used to treat moderate to severe pain. What should I tell my health care provider before I take this medicine? They need to know if you have any of these conditions: ? [place]'s disease ? Brain tumor or head injury [...] should report to your doctor or health foster care social worker as soon as possible: ? allergic reactions [...] attention (report to your doctor or health foster care social worker if they continue or are bothersome): ? constipation ? dry mouth ? itching ? nausea, vomiting ? upset stomach This list may not describe all possible side effects. Call your doctor for medical advice about side effects. You may report side effects to FDA at 0-605-NLA-8082. Where should I keep my medicine? This [...] location. To find a disposal location, visit SHIFT/[facility]/[place]. If you cannot take unused medicine to a proper location, you can mix the medicine with coffee grounds or jose litter and dispose of in the normal trash. Your doctor may also give you a special disposal pouch for this medicine. You can also flush the medicine down the toilet. * Gauri LouieIR - Raj Cardona RN - 07/19/2025 9:44 AM EDT Images from the original note were not included. [id number] Naloxone Nasal Frostproof WHY is this medicine prescribed? Prescription and [...] pharmacist for the instructions or visit the carpet repairer's website to get the instructions. You should [...] or doctor for a copy of the carpet repairer's information for the patient. Are there OTHER [...] and out of their sight and reach. https://www.upandMamapedia.org Dispose of unneeded medications in a way [...] of all of the prescription and nonprescription (pfhd-npd-qemakzl) medicines, vitamins, minerals, and dietary supplements you [...] or pharmacist about specific clinical use. The [place] [employer]System [employer]. represents that the information provided hereunder was formulated with a reasonable standard of care, and in conformity with professional standards in the field. The [place] [employer]System [employer]. makes no representations or warranties, express or implied, including, but not limited to, any implied warranty of merchantability and/or fitness for a particular purpose, with respect to such information and specifically disclaims all such warranties. Users are advised that decisions regarding drug therapy are complex medical decisions requiring the independent, informed decision of an appropriate health foster care social worker, and the information is provided for informational purposes only. The entire monograph for a drug should be reviewed for a thorough understanding of the drug's actions, uses and side effects. The [place] [employer]System Pharmac[employer] does not endorse or recommend the use of any drug.The information is not a substitute for medical care. AHFS?? Patient Medication Information?. ?? Copyright, 2023. The [place] [employer] Health-System Pharmacists??, [address], [address], [place], [place]. All Rights Reserved. Duplication for commercial use must be authorized by [facility]. Selected Revisions: May 26, 2024. AHFS?? Patient Medication Information?. ?? Copyright, 2024 * Gauri Rico - Raj Cardona RN [...] controlled substances: ? Drug Enforcement Agency (HARIS): http://www.deadiversion.MyoKardiaoj.gov/drug_disposal/takeback/index.htm ? National Association of Drug Diversion Investigators (NADDI): http://rxdrugdropbox.org/ ? [place] Office of Drug Control Policy: http://odcp.nm.gov/Prescription+Drug+Drop+Box+Sites.htm Are [...] that tracks prescriptions of controlled substances in [place]. The DANYELLE report tells your doctor if [...] or your doctor may then call the [place] Drug Enforcement and Professional Practices Branch at .This will start an investigation of the error. * Gauri McgregorJANETH - Raj Cardona RN - 07/19/2025 9:44 AM EDT Images from the original note were not included. 00589 Insulin: How to Use and Where to [...] ?needles? or ?sharps.? ? Call your local [employer] company to ask about removing the sharps container. You can also check withthe [facility] for Safe Community Needle Disposal at www.safeneedledisposal.org or 914-328-8449. Storing your insulin ? Keep unopened insulin [...] cold. Last Reviewed Date: 2023 00:00:00 ?? 0881-0027 The [employer]. All rights reserved. This information is not intended as a substitute for professional medical care. Always follow your healthcare professional's instructions. * [facility] Raj Cardona RN - 07/19/2025 9:43 AM EDT Images from the original note were not included. [id number] Diet: Diabetes Food is an important tool [...] of Nutrition and Dietetics at www.eatright.org o [place] [employer] Association at www.diabetes.org or 206-662-8527 o Association of Diabetes Care and Education Specialists at www.diabeteseducator.org/ Last Reviewed Date: 2024 00:00:00 ?? 3536-4569 [employer]. All rights reserved. This information is not intended as a substitute for professional medical care. Always follow your healthcare professional's instructions. * Gauri McgregorJANETH - Raj Cardona RN - 07/19/2025 9:43 AM EDT Images from the original note were not included. 49236 Diabetes: Understanding Carbohydrates, Fats, and Protein Food [...] foods. Last Reviewed Date: 2024 00:00:00 ?? 8457-6980 The URX. All rights reserved. This information is not intended as a substitute for professional medical care. Always follow your healthcare professional's instructions. * Jodycynthia Jacky - Raj Cardona RN - 07/19/2025 9:43 AM EDT Images from the original note were not included. 95598 Discharge Instructions: Packing a Wound You have [...] chills. Last Reviewed Date: 2025 00:00:00 ?? 6328-6576 The [employer]RX. All rights reserved. This information is not intended as a substitute for professional medical care. Always follow your healthcare professional's instructions. * [facility] - Raj Cardona RN - 07/19/2025 9:43 AM EDT Images from the original note were not included. 98384 Negative Pressure Wound Therapy Negative pressure wound [...] device. Last Reviewed Date: 2024 00:00:00 ?? The URX. All rights reserved. This information is not intended as a substitute for professional medical care. Always follow your healthcare professional's instructions. * Gauri Rico - Raj Cardona RN - 07/19/2025 9:43 AM EDT Images from the original note were not included. 00850 Discharge Instructions: Changing Your Dressing You are [...] doctor. Last Reviewed Date: 2025 00:00:00 ?? 8490-7694 The URX. All rights reserved. This information is not intended as a substitute for professional medical care. Always follow your healthcare professional's instructions. * [facility] - Raj Cardona RN - 07/19/2025 9:42 AM EDT Images from the original note were not included. [id number] Abscess (Incision and Drainage) An abscess is [...] treatment. Last Reviewed Date: 2024 00:00:00 ?? 8152-1722 The URX. All rights reserved. This information is not intended as a substitute for professional medical care. Always follow your healthcare professional's instructions. * [facility] - Raj Cardona RN - 07/19/2025 9:42 AM EDT Images from the original note were not included. 55439 Preventing a Surgical Site Infection A risk [...] of infection. ? Controlled body temperature. A ecsag-qrkd-fnmzya temperature during or after surgery prevents oxygen [...] and water or with an alcohol-based hand accounts specialist before and after caring for you. Don?t [...] away. Last Reviewed Date: 2024 00:00:00 ?? 0671-1258 The URX. All rights reserved. This information is not intended as a substitute for professional medical care. Always follow your healthcare professional's instructions. * Jodycynthia LouieJANETH - Raj Cardona RN - 07/19/2025 [...] questions. Last Reviewed Date: 2023 00:00:00 ?? 1458-1912 The URX. All rights reserved. This information is not [...] MD PCP name and Address: Yenny Dhillon, INTERNET TECHNOLOGY MANAGER [address] [facility] [address] [place] [address] Referring provider name and address: Keaton Patel MD [address] [facility] [facility] [address] [place] [address] Chief Concern, Brief History of Present Illness, and Hospital Course Cristina Brown is a 50 y.o. female with PMH of DM, hidradenitis supparativa, current smoker (1.5ppd), hx of absent seizures, UTI, depression, anxiety, asthma, HLD, celiac disease, presenting to [facility] on 07/08/2025 as transfer with concern for [...] stay, and so will be discharged to [facility]. Surgeries and Procedures Procedures performed in [...] Your Medications These medications were sent to [facility] [place], [place] - [address] [facility] [address] naloxone 4 mg/0.1 mL nasal spray Information [...] - Improving, continue to monitor Septic shock ([facility]) Overview Addendum 07/12/2025 1:55 PM by [...] dressing in place, sutures removed on rounds. [facility] can re- apply negative pressurewound therapy: [...] please call our General Surgery Clinic at [phone]. If there are questions or concerns after discharge from the hospital, call Radha Ugalde, Nurse Coordinator between 7am-3pm at [phone]. If it is after hours, weekends, and holidays please call [phone] and ask for the resident housing relocation for Emergency General Surgery. Medication requests should be made between the hours of 9:00 AM to 3:00 PM Tuesday thru Tuesday. Please note that based upon recent changes to [place] law related to prescribing opioid pain medications, [...] normal. Judgment: Judgment normal. Discharge Disposition/Condition Disposition: [facility] Condition: Stable (s/sx potential problems absent or [...] (H) 07/17/2025 I reviewed bg tracing in [facility] glucose timeline 07/19/25 ASSESSMENT Hospital Course: Cristina Brown is a 50 y.o. female with hx of type 2 DM, morbid obesity, hidradenitis supparativa, current smoker (1.5 ppd), hx of absent seizures, UTI, depression, anxiety, asthma, HLD, celiac disease who initially came to [facility] on 07/08/2025 as transfer with concern for [...] to establish care with endocrine provider in [place], [place]. --> Provided patient with address and number of clinic. [[facility] Endocrinology Clinic in the [facility] Physician Building]. -Tentative discharge recommendations: Likely [...] team via secure chat orpage us at [phone] during 7a-7p, Tuesday-Tuesday. For after hours please [...] 7:08 AM EDT Associated Problem(s): Necrotizing fasciitis ([facility]) - 07/09: debridement of necrotizing fasciitis [...] AM EDT Associated Problem(s): DM (diabetes mellitus) ([facility]) - Patient presenting with significant hyperglycemia, [...] Associated Problem(s): Chronic obstructive pulmonary disease, unspecified ([facility]) Complicates care. Continue Albuterol and DuoNebs. [...] newly diagnosed JOSEP who presented to [facility] with leukocytosis and exam findings [...] by Drain (mL) 07/17/25 07 - 07/17/25 1859 07/17/25 190 - 07/18/25 0659 07/18/25 07 - 07/18/25 18507/18/25 1900 - 07/19/25 0659 07/19/25 0700 - [...] Results from last 7 days Lab Units 07/19/2542707/18/2560207/17/25 0520 CREATININE mg/dL 0.73 0.65 0.59* Medications [...] pending DM (diabetes mellitus) (CMS/[facility]) Present on Admission: Yes - Patient [...] the brett pad. After discussion with chief housing relocation, decision was made to remove the [place] and place a lcw-jes-cstehusx with Kerlix, Polymem, ABD pads, and skin [...] RN Outcome: Ongoing, Progressing Flowsheets Taken 07/18/2025 231 by Inessa Almazan RN Progress: improving Taken 07/18/2025 1633 by Josi Ann RN Plan of Care Reviewed With: patient Goal: Patient-Specific Goal (Individualized) 07/18/20252319 by Inesas Almazan RN Outcome: Ongoing, Progressing Flowsheets (Taken [...] Intervention: Identify and Manage Contributors Flowsheets (Taken 07/18/20250) Medication Review/Management: medications reviewed Self-Care Promotion: independence [...] EDT Case Management Adult Progress Note Cristina Escobar Kevin 50 y.o. female CSN: [id number] Admission: 07/08/2025 5:58 PM Primary Problem: Necrotizing fasciitis (CMS/HCC) Anticipated Discharge Date: 07/19/25 Has Discharge Plans Changed? Yes [facility] Acute Rehab Medicare Second Notice: Housing Circumstances: Low Income ( 101-300% Federal Poverty Guideline) Housing Circumstances Action Taken: Medically Ready for Discharge: Anticipated Tomorrow Additional Comments Per the MD pt is medically ready to d/c after she can tolerate her wv being changed without IV painmedication. SW talked with the pt and she is agreeable to go to [facility] however she still has a [...] the MD team. Pt will transfer to [facility] via shuttle on 07/19 if [...] celiac disease who initially came to [facility] on 07/08/2025 as transfer with concern for [...] to establish care with endocrine provider in [place], [place]. --> Provided patient with address and number of clinic. [[facility] Endocrinology Clinic in the [facility] Physician Building]. -Tentative discharge recommendations: Likely [...] team via secure chat orpage us at [phone] during 7a-7p, Tuesday-Tuesday. For after hours please [...] 7:05 AM EDT Associated Problem(s): Necrotizing fasciitis ([facility]) - 07/09: debridement of necrotizing fasciitis [...] AM EDT Associated Problem(s): DM (diabetes mellitus) ([facility]) - Patient presenting with significant hyperglycemia, [...] due to excess calories (CMS/[facility]) Complicates all aspect of care * [...] 7:05 AM EDT Associated Problem(s): Postoperative pain [place] [...] Drain (mL) 07/16/25 07 - 07/16/25 18507/16/25 1900 - 07/17/25 0659 07/17/25 07 - [...] Ongoing, Progressing Intervention: Promote Activity and Functional [place] Flowsheets (Taken 07/18/2025204) Activity Assistance Provided: assistance, [...] Ongoing, Progressing Intervention: Promote Activity and Functional [place] Flowsheets Taken 07/16/2025 0635 by Yessenia Ramirez [...] celiac disease who initially came to [facility] on 07/08/2025 as transfer with concern for [...] to establish care with endocrine provider in [place], [place]. --> Provided patient with address and number of clinic. [[facility] Endocrinology Clinic in the [facility] Physician Building]. -Tentative discharge recommendations: Likely [...] via secure chat or page us at [phone] during 7a-7p, Tuesday-Tuesday. For after hours please [...] care close to her sisters house in [place]. CM notified. * Assessment & Plan Note - Jason Andre MD - 07/17/2025 10:21 AM EDT Associated Problem(s): Necrotizing fasciitis ([facility]) - 07/09: debridement of necrotizing fasciitis [...] AM EDT Associated Problem(s): DM (diabetes mellitus) ([facility]) - Patient presenting with significant hyperglycemia, [...] (severe) obesity due to excess calories ([facility]/HCC) Complicates all aspect of care [...] 07/17/2025 10:18 AM EDT 07/17/25 Cristina Brown [facility] 50-year-old female with past [...] Edited by: Inderjit Montes PA at 07/17/2025 0612 Relevant review of systems was obtained as [...] not routine care * Progress Notes - Jenise Candice Joana - 07/17/2025 10:03 AM EDT OCCUPATIONAL THERAPY [...] admission Level of Mobility Ambulatory- community Mobility [place] Independent gait without device History of Falls [...] engaged throughout Visitors Present None Director Of Assessment (if applicable) OBJECTIVE PAIN Rates pain at [...] needed areas of treatment space Level of [place] Interventions: Feeding Independent Edge of bed Patient [...] Level of Assistance: Moderate assistance Adaptive Equipment: Packing And Wrapping Supervisor, Sock aide Training and demonstration provided for use and functionality of sock aid, leg fur dresser strap and guitar teacher tool to support independence with LB dressing, [...] and prioritizing during ADL performance. Access Code: [email or web address] URL: [email or web address] Putting On Socks with a Sock Aid Putting On and Taking Off Pants Using a Packing And Wrapping Supervisor Using a Leg Supervisor Green End Department Adaptive Equipment for Bathing & Showering Understanding Energy Conservation BED MOBILITY Level of [place] Physical/Non- physical Assist Adaptive Equipment Utilized Supine to Sit Modified B[place] Bed rails TRANSFERS Level of [place] Physical/Non- physical Assist Adaptive Equipment Utilized Sit [...] skin integrity resulting in readmission risk Plan: Bhaskar remains an appropriate candidate for occupational therapy [...] admission Level of Mobility Ambulatory- community Mobility [place] Independent gait without device History of Falls [...] when pt may be discharged from [facility]. Director Of Assessment (if applicable) Not Applicable OBJECTIVE & INTERVENTIONS [...] pt's true mobility BED MOBILITY Level of [place] Physical/Non- physical Assist Adaptive Equipment Utilized Rolling/ Turning Scooting/ Bridging Supine to Sit Modified [place] Bed rails Sit to Supine Interventions TRANSFERS Level of [place] Physical/Non- physical Assist Adaptive Equipment Utilized Sit to Stand Stand-by assist Supervision Rollator Stand to sit Stand-by assist Supervision Rollator Bed to Chair Toilet Transfer Shower Transfer Interventions BALANCE Postural Appearance Posture: Forward head, Rounded shoulders Level of Bamberg Balance Support Interventions Static Sit Standby assist Feet supported Dynamic Sit Contact guard Feet supported Dynamic Sitting-Balance: Lateral weight shifts, Anterior/Posterior weight shifts Static Stand Contact guard Right upper extremity support, Left upper extremity support Standing in room prior to ambulation Dynamic Stand Contact guard Right upper extremity support, Left upper extremity support 3 bouts of approx 1 min each AMBULATION Level of Bamberg Distance Adaptive Equipment Utilized Ambulation Contact guard [...] completed Intervention: Prevent Skin Injury Flowsheets Taken 07/16/20250 by Eulalia Estrada RN Body Position: heels [...] Ongoing, Progressing Intervention: Promote Activity and Functional B[place]berg Flowsheets Taken 07/16/2025 0635 by Yessenia Ramirez [...] of Bed (HOB) Positioning: HOB elevated Taken 07/16/2025128 by Eulalia Estrada RN Pressure [...] Progressing Flowsheets (Taken 07/16/2025 0129 by Eulalia Estrada RN) Progress: improving Plan [...] Thromboembolism) Risk Flowsheets (Taken 07/16/2025 0640 by uElalia Estrada RN) VTE Prevention/Management: medication Intervention: Prevent [...] and Optimize Oral Intake Flowsheets Taken 07/16/2025 0129 by Eulalia Estrada RN Oral Nutrition Promotion: [...] encouraged Taken 07/14/2025 1800 by Josi Ann jet ski mechanic Review/Management: medications reviewed Intervention: Promote Injury-Free Environment Flowsheets (Taken 07/16/2025 1700 by Diego Munroe) Safety Promotion/Fall Prevention: safety round/check completed nonskid shoes/slippers when out of bed mobility aid in reach room organization consistent clutter-free environment maintained assistive device/personal items within reach Problem: Self-Care Deficit Goal: Improved Ability to Complete Activities of Daily Living Outcome: Ongoing, Progressing Intervention: Promote Activity and Functional [place] Flowsheets Taken 07/16/2025 0635 by Yessenia Ramirez [...] promoted Taken 07/14/2025 1800 by Josi Ann briar shop supervisor/Support System Care: support provided Goal: Optimal Functional [...] Support Management: weight trending reviewed Taken 07/16/2025 0129 by Eulalia Estrada RN Oral Nutrition Promotion: [...] (Taken 07/16/2025 0129 by Eulalia Estrada RN) Progress: improving Plan of Care Reviewed With: patient 07/16/2025 1808 by Isha Colunga RN Outcome: Ongoing, Progressing Flowsheets (Taken 07/16/2025 012 by Eulalia Estrada RN) Progress: improving Plan of Care Reviewed With: patient Goal: Patient-Specific Goal (Individualized) 07/16/2025 181 by Isha Colunga RN Flowsheets [...] Colunga RN Flowsheets (Taken 07/16/2025 170 by Denia Boo RN) Body Position: weight [...] Colunga RN Flowsheets (Taken 07/14/2025 1800 by [place], Josi [...] Ongoing, Progressing Intervention: Promote Activity and Functional [place] Flowsheets (Taken 07/16/2025 012 by Eulalia Estrada [...] 3:01 PM EDT SW received call from Infusion Pharmacist offering assistance for d/c planning. Her Callback #[phone] * Progress Notes - Sherrill Villa APRN [...] celiac disease who initially came to [facility] on 07/08/2025 as transfer with concern for [...] to establish care with endocrine provider in [place], [place]. --> Provided patient with address and number of clinic. [[facility] Endocrinology Clinic in the [facility] Physician Building]. -Tentative discharge recommendations: Likely [...] team via secure chat orpage us at [phone] during 7a-7p, Tuesday-Tuesday. For after hours please [...] AM EDT Associated Problem(s): DM (diabetes mellitus) ([facility]) - Patient presenting with significant hyperglycemia, [...] Associated Problem(s): Chronic obstructive pulmonary disease, unspecified ([facility]) Complicates care. Continue Albuterol and DuoNebs. [...] (severe) obesity due to excess calories ([facility]/HCC) Complicates all aspect of care * Assessment & Plan Note - Jason Andre MD - 07/16/2025 6:52 AM EDT Associated Problem(s): Urge incontinence Patient currently with a montalvo catheter. Remove when able. * Assessment & Plan Note - Jason Andre MD - 07/16/2025 6:52 AM EDT Associated Problem(s): Absence seizure ([facility]) - On Lamictal 50mg BID at [...] Ongoing, Progressing Intervention: Promote Activity and Functional B[place]berg Flowsheets (Taken 07/16/2025128) Self-Care Promotion: independence encouraged [...] Ongoing, Progressing Intervention: Promote Activity and Functional [place] Flowsheets Taken 07/15/2025 1745 by Denia Boo RN Activity Assistance Provided: assistance, stand-by Taken 07/14/2025 2311 by Rita Alejandro RN Adaptive Equipment Use: long-handled shoe horn Taken 07/14/2025 1800 by Josi Ann RN Self-Care Promotion: independence encouraged Problem: Wound Goal: Optimal Coping Outcome: Ongoing, Progressing Intervention: Support Patient and Family Response Flowsheets Taken 07/15/20251324 by Sophia Salazar RN Supportive Measures: positive reinforcement provided Taken 07/14/2025 1800 by Josi Ann briar shop supervisor/Support System Care: support provided Goal: Optimal Functional [...] Note Cristina Brown 50 y.o. female CSN: [id number] Room/Bed 123/123A Nutrition evaluation type: follow-up Reason for evaluation: Hospital course: 50 y o F transferred from OSH with concern for necrotizing fasciitis; OR 07/08 for excisional debridement of RLE, groin, pubis, and abdominal wall of skin, subcutaneous tissue, and muscle fascia, [id number]. Septic shock secondary to NSTI. Intubated & [...] Supplemental oxygen O2 Delivery Method: Nasal cannula [place] Coma Scale Score: 15 Julián Scale Score: [...] Estimated Needs: Kcal: 25-27 kcal/kg adj bw (7143-6308 kcal/d) Protein: 1.5-1.7 g/kg adj bw (143-162 [...] Anxiety Asthma Carpal tunnel syndrome Depression Diabetes ([facility]) H/O absence seizures Hidradenitis High cholesterol [...] Note Cristina Brown 50 y.o. female CSN: [id number] Admission: 07/08/2025 5:58 PM Primary Problem: Necrotizing fasciitis ([facility]/HCC) Fabrication Specialist reviewed chart and spoke with patient to complete this Initial Case Management Assessment. PCP: Yenny Dhillon APRN Emergency Contact: Extended Emergency Contact Information Primary Emergency Contact: Yecenia Lake Mobile Relation: Sister Preferred language: Burkinan Director Of Assessment needed? No Secondary Emergency Contact: Arnoldo Raymond [address]: [address] [place] [address] Mobile Relation: Significant Other Preferred language: Burkinan Director Of Assessment needed? No Insurance: Primary Visit Coverage Payer Plan Sponsor Code Group Number Group Name [facility] MEDICAID [facility] MEDICAID [place] Primary Visit Coverage Subscriber Subscriber ID Subscriber Name Subscriber SSN Subscriber Address [id number] CRISTINA BROWN [id number] [place] [address] Patient information: Primary Caregiver: Self Accompanied by/Relationship: Arnoldo Coleelor- significant other Support System: Immediate family, Extended family, Friends Daily Living Activities: Functional Status: Minimum assistance Living Arrangements: Family, Friends Type of Residence: Private residence [address] [place] [address] Smoker in the Home?: Yes Current DME: Equipment Currently Used at Home: none Income Information: Income Source: Unemployed Income/Expense Information: Expenses exceed income Current Resources Utilized: Food [place] Housing Circumstances-Z Codes: Housing Circumstances (select all [...] Dialysis Services: N/A Living Will/Advance Directive/Power of Precinct Police Sergeant /Guardian: N/A Additional Comments: Pt gets her medications from [facility] in [place] * Consults - Anupama [...] celiac disease who initially came to [facility] on 07/08/2025 as transfer with concern for [...] after discharge close to her home at [place]. She agrees to call and make appointment [...] tablet 1,000 mg 1,000 mg Oral q6h [facility] Cheyanne Chakraborty MD 1,000 mg at 07/15/25 [...] Endocrinology referral - patient requested to see chief of hospital medicine in [place], [place]. Provided patient with address and number of clinic. [[facility] Endocrinology Clinic in the [facility] Physician Building]. Patient has been on [...] AM EDT Associated Problem(s): DM (diabetes mellitus) ([facility]) - Patient presenting with significant hyperglycemia, [...] Associated Problem(s): Chronic obstructive pulmonary disease, unspecified ([facility]) Complicates care. Continue Albuterol and DuoNebs. [...] monitor * Assessment & Plan Note - aJson Andre MD - 07/15/2025 7:15 AM EDT [...] Ongoing, Progressing Intervention: Promote Activity and Functional B[place]berg Flowsheets Taken 07/14/20252310 by Rita Alejandro RN [...] Protection Flowsheets Taken 07/14/20251999 by Rita Alejandro, NAHID Activity Management: back to bed Head of [...] Ongoing, Progressing Intervention: Promote Activity and Functional [place] Flowsheets (Taken 07/14/2025 1800) Activity Assistance Provided: [...] DO - 07/14/2025 5:22 PM EDT Patient: Kishaa R Kevin Anesthesia Type: general Vitals Value Taken [...] PM EDT Operative Note Date: 07/14/25 Location: [facility] Name: Cristina Brown, : 1975, Diagnoses: Pre-op Diagnosis Necrotizing fasciitis (CMS/HCC) Post-op Diagnosis Necrotizing fasciitis (CMS/HCC) Procedure(s): Wound irrigation Partial wound closure, total closed 30 cm length Attending Surgeon(s): * Anne Franco - Primary Field Return Repairer(s): * Janell Cross MD - Resident - [...] (mL) 30 mL 07/14/25 1625 [REMOVED] NG/OG [place] Sump O[facility] mouth (Removed) Placement Verification distal tube length 07/10/25 08 Tube Placement Length Marking (cm) 60 07/10/25 0800 Site Assessment Clean;Dry;Intact 07/10/25 08 Surrounding Skin Dry;Intact 07/10/25 08 Secured by Tape 07/10/25 08 Secured Location ETT 07/10/25 0800 NG/OG Status Clamped;Medication administration only 07/10/25 0800 Drainage Appearance Bile 07/09/25 08 NG/OG Interventions [...] (mL) 49 mL 07/10/25 0000 [REMOVED] NG/OG [place] Sump 14 Fr Left nostril (Removed) Placement [...] the procedure(s) and immediately available [facility] services the entire duration. See resident [...] clutter-free environment maintained assistive device/personal items within [facility] fall prevention program maintained nonskid shoes/slippers when [...] clutter-free environment maintained assistive device/personal items within [facility] fall prevention program maintained nonskid shoes/slippers when [...] Healing Flowsheets (Taken 07/13/20251826 by Leatha Watkins, NAHID) Sleep/Rest Enhancement: awakenings minimized * Care Plan [...] Ongoing, Progressing Intervention: Promote Activity and Functional [place]berg Flowsheets (Taken 07/13/20251826) Activity Assistance Provided: assistance, [...] Note Cristina Brown 50 y.o. female CSN: [id number] Admission: 07/08/2025 5:58 PM Primary Problem: Necrotizing fasciitis (CMS/HCC) Fabrication Specialist reviewed chart and spoke with Cristina to complete this Initial Case Management Assessment. PCP: Yenny Dihllon APRN Emergency Contact: Extended Emergency Contact Information Primary Emergency Contact: Yecenia Lake Mobile Relation: Sister Preferred language: Burkinan Director Of Assessment needed? No Secondary Emergency Contact: Arnoldo Raymond Address: [address] [place] [address] Mobile Relation: Significant Other Preferred language: Burkinan Director Of Assessment needed? No Insurance: Primary Visit Coverage Payer Plan Sponsor Code Group Number Group Name [facility] MEDICAID [facility] MEDICAID [facility] Primary Visit Coverage Subscriber Subscriber ID Subscriber Name Subscriber N Subscriber Address [id number] CRISTINA BROWN [id number] [place] [address] Patient information: Primary Caregiver: Self Accompanied by/Relationship: Arnoldo Raymond- significant other Support System: Immediate family Daily Living Activities: Functional Status: Independent Living Arrangements: Spouse/Significant other Type of Residence: Private residence [address] [place] [address] Current DME: Equipment Currently Used at Home: none Income Information: Housing Circumstances-Z Codes: Patient Referred to: Anticipated Discharge Date: unknown Patient's Discharge Goal: Referrals sent for Acute Rehab Assistance Available at Discharge: Arnoldo Raymond Discharge Transport: Arnoldo Raymond Follow Up Transport: Arnoldo raymond Home Health / Home Infusion / Outpatient Dialysis Services: none Living Will/Advance Directive/Power of Precinct Police Sergeant /Guardian: Additional Comments: CM discussed acute rehab placement with Irinadiann and Arnoldo Raymond. Their first choice is [place] in [place], [place]. CM sent referrals in [facility]. Cristina will continue inpatient management for [...] PM EDT Associated Problem(s): DM (diabetes mellitus) (CMS/HCC) [...] 12:36 PM EDT Associated Problem(s): Postoperative pain [facility] * Progress Notes - Aparna Shultz - 07/13/2025 11:59 AM EDT Occupational Therapy Evaluation Patient Name: Cristina Brown Today's Date: 07/13/2025 OT Discharge Recommendations: Acute rehab Equipment Recommended: Defer to facility History Cristina Brown is 50 y.o. female admitted 07/08/2025 for work-up of Necrotizing fasciitis ([facility]). Problem List Active Hospital Problems Diagnosis Date Noted Postoperative pain 07/13/2025 JOSEP (obstructive sleep apnea) 07/11/2025 HLD (hyperlipidemia) 07/10/2025 Acute respiratory failure 07/09/2025 Septic shock ([facility]/HCC) 07/09/2025 Absence seizure ([facility]/HCC) 07/09/2025 DM (diabetes mellitus) ([facility]/HCC) 07/08/2025 Hidradenitis 07/08/2025 HTN (hypertension), benign 08/31/2023 Urge incontinence 08/31/2023 Smoker 06/09/2023 Depression 06/09/2023 Morbid (severe) obesity due to excess calories ([facility]) 02/15/2022 Chronic obstructive pulmonary disease, unspecified ([facility]) 01/09/2022 Necrotizing fasciitis ([facility]/HCC) 07/08/2025 Procedures 07/11/2025 Procedure(s): APPLICATION OR [...] in Care Family/Caregiver Present: No Director Of Assessment: Not Applicable Presentation Oxygen Therapy: Supplemental oxygen [...] admission Level of Mobility: Ambulatory- community Mobility Bamberg: Independent gait without device History of Falls: [...] Mobility Bed Mobility Exam: Scooting/Bridging Level of Bamberg: Contact guard (seated scoot once sitting up on EOB and able to wiggle back into recliner chair) Bed Mobility Exam: Supine to Sit Level of Bamberg: Moderate assist (50% patient's effort) Physical/Nonphysical Assist: Verbal Cues, Moderate cues, Additional assist utilized for safety, HOBelevated Assistive Device: Other (PULP MILL OPERATOR x2) Transfers Transfer Interventions: Patient performed sit < > stand x 3 reps total: Mod A from EOB, Min Afrom recliner chair, and CGA from BSC. Transfer Exam: Sit to stand Level of Bamberg: Minimum assist (75% patient's effort) Physical/Nonphysical Assist: Verbal Cues, Minimal cues Assistive Device: Walker, rolling (andrea) Transfer Exam: Stand to Sit Level of Bamberg: Minimum assist (75% patient's effort) Physical/Nonphysical Assist: Verbal Cues, Minimal cues Assistive Device: Walker, rolling (andrea) Transfer Exam: Bed to Chair/Chair to Bed Level of Bamberg: Minimum assist (75% patient's effort) Physical/Nonphysical Assist: Verbal Cues, Minimal cues, Additional assist utilized for safety Type of Transfer: Sidesteps (bed > chair < > BSC) Assistive Device: Walker, rolling (anrdea) Toilet Transfer Level of Bamberg: Minimum assist (75% patient's effort) Physical/Nonphysical Assist: Nonverbal cues (demo/gestures), Verbal Cues, Set-up required, Minimal cues Type of Transfer: Sidesteps, To bedside commode (ordered bariatric BSC from [employer] as patient had difficulty getting on/off BSC [...] to allow bedside care to take placed (LEGAL RESEARCH ANALYST entering to take vitals; RN enforcing [...] for further toileting ADL needs. Standardized Assessments [facility] 6-Click Daily Activities Help from Other: Don/Doff Regular Lower Body Clothings: A lot Help From Other: Bathing: A lot Help From Other: Toileting: A lot Help From Other: Don/Doff Upper Body Clothings: Little Help From Other: Grooming: None Help From Other: Eating Meals: None [facility] 6 Click - Daily Activities Score: [...] admitted 07/08/2025 for work-up of Necrotizing fasciitis ([facility]). Problem List Active Hospital Problems Diagnosis Date Noted Postoperative pain 07/13/2025 JOSEP (obstructive sleep apnea) 07/11/2025 HLD (hyperlipidemia) 07/10/2025 Acute respiratory failure 07/09/2025 Septic shock ([facility]/HCC) 07/09/2025 Absence seizure ([facility]/HCC) 07/09/2025 DM (diabetes mellitus) (CMS/HCC) 07/08/2025 [...] in Care Family/Caregiver Present: No Director Of Assessment: Not Applicable Presentation Oxygen Therapy: Supplemental oxygen [...] admission Level of Mobility: Ambulatory- community Mobility Bamberg: Independent gait without device History of Falls: [...] Mobility Bed Mobility Exam: Scooting/Bridging Level of Bamberg: Contact guard (seated scoot once sitting up on EOB and able to wiggle back into recliner chair) Bed Mobility Exam: Supine to Sit Level of Bamberg: Moderate assist (50% patient's effort) Physical/Nonphysical Assist: Verbal Cues, Moderate cues, Additional assist utilized for safety, HOBelevated Assistive Device: Other (PULP MILL OPERATOR x 2) Transfers Transfer Interventions: Patient performed sit < > stand x 3 reps total: Mod A from EOB, Min Afrom recliner chair, and CGA from BSC. Cues for safe hand placement during transitions using RW. Transfer Exam: Sit to stand Level of Bamberg: Minimum assist (75% patient's effort) Physical/Nonphysical Assist: Verbal Cues, Minimal cues Assistive Device: Walker, rolling (andrea) Transfer Exam: Stand to Sit Level of Bamberg: Minimum assist (75% patient's effort) Physical/Nonphysical Assist: Verbal Cues, Minimal cues Assistive Device: Walker, rolling (andrea) Transfer Exam: Bed to Chair/Chair to Bed Level of Bamberg: Minimum assist (75% patient's effort) Physical/Nonphysical Assist: Verbal Cues, Minimal cues, Additional assist utilized for safety Type of Transfer: Sidesteps (bed > chair < > BSC) Assistive Device: Walker, rolling (andrea) Toilet Transfer Level of Bamberg: Minimum assist (75% patient's effort) Physical/Nonphysical Assist: [...] assistance Standardized Assessments Standardized Assessments Standardized Assessments: [facility] 6-Clicks Mobility Assessment [facility] 6-Clicks Mobility Assessment Difficulty patient has [...] climbing 3-5 steps with a railing?: Unable [facility] 6-Clicks Mobility Assessment Total : 15 [...] asthma, HLD, celiac disease, presenting to [facility] on 07/08/2025 as transfer with concern for [...] stay, and so will be discharged to [facility]. * Assessment & Plan Note - [...] 07/13/2025 7:46 AM EDT 07/13/25 Cristina Brown [facility] 50-year-old female with past [...] 07/12/25 0659 07/12/25 07 - 07/12/25 18507/12/25 190 - 07/13/25 0659 07/13/25 07 - [...] Airway None O2 Delivery Method: Nasal cannula OH SUP: 10 cm H20 Insp Time (sec): 1 sec FiO2 (%): 40 % S RR: 20 OH SUP: 10 cm H20 Output by Drain [...] saw and evaluated the patient with the medical/INSPECTOR PLUG SEAM/PA student. I discussed the case with the medical/INSPECTOR PLUG SEAM/PA student and agree with the findings and [...] PM EDT Operative Note Date: 07/11/25 Location: [facility] Name: Cristina Escobar Kevin, : 1975, Diagnoses: Pre-op Diagnosis Necrotizing fasciitis (CMS/HCC) Post-op Diagnosis Necrotizing fasciitis (CMS/HCC) Procedure(s): Right groin/perineum/thigh/abdominal wound exploration and washout Attending Surgeon(s): * Dorcas Hennessy - Primary Field Return Repairer(s): * Janell Cross MD - Resident - [...] AM EDT Adult Nutrition Evaluation Note Cristina Luz AnayaKevin 50 y.o. female CSN: [id number] Room/Bed 133/133A Nutrition evaluation type: follow-up Reason for evaluation: Hospital course: 50 y o F transferred from OSH with concern for necrotizing fasciitis; OR 07/08 for excisional debridement of RLE, groin, pubis, and abdominal wall of skin, subcutaneous tissue, and muscle fascia, [id number]. Septic shock secondary to NSTI. Intubated & [...] Estimated Needs: Kcal: 25-27 kcal/kg adj bw (0771-2086 kcal/d) Protein: 1.5-1.7 g/kg adj bw (143-162 [...] Vent Status (ETT, Trach Only): In use [place] SUP: 5 cm H20 Insp Time (sec): 1.5 sec Vent Mode: PS FiO2 (%): 60 % S RR: 14 OH SUP: 5 cm H20 MAP (cm H2O): 9 Output by Drain (mL) 07/09/25 07 - 07/09/25185807/09/251899 - 07/10/25 0659 07/10/25 07 - 07/10/25 [...] Yes Overview Signed 07/09/2025 3:05 PM by Lidai Ellis MD - Patient smokes 0.5-1ppd. - [...] Edited by: Cheyanne Chakraborty MD at 07/11/2025 0841 [facility] Critical Care Performed by: Dorcas [...] Cheyanne Briceño RN Progress: improving Taken 07/10/2025 171 by Isha Cueto RN Plan of Care [...] as documented. * Anesthesia PACU Signout - Incoente Cotto MD - 07/10/2025 5:52 PM EDT [...] clinical significance []Other, please specify Clinical Indicators: 9/1 ED Note: seen at OSH where she [...] PM EDT Operative Note Date: 07/10/25 Location: [facility] Name: Cristina Brown, : 1975, Diagnoses: Pre-op Diagnosis Necrotizing fasciitis (CMS/HCC) Post-op Diagnosis Necrotizing fasciitis (CMS/HCC) Procedure(s): Right groin/perineum/thigh/abdominal wound exploration, debridement, and washout Attending Surgeon(s): * Dorcas Hennessy - Primary Field Return Repairer(s): * Shelby Whittington MD - Resident - [...] 07/08/252341 Estimated Blood Loss: Minimal Drains: NG/OG [place] Sump 14 Fr Left nostril (Active) Placement [...] Findings: All viable tissue. Wound measuring approximately 26u58m2mv. Packed with 5 kerlix tied together. Indications: Cristina Brown is an 50 y.o. female who is having surgery for Necrotizing fasciitis ([facility]). Patient presented in septic shock secondary [...] Edited by: Lidia Ellis MD at 07/10/2025 1854 Relevant review of systems was obtained as able and is negative unless stated above in HPI. Vital signs: Visit Vitals BP 99/60 Pulse 90 Temp 36.9 ??C (98.5 ??F) (Oral) Resp 16 Ht 1.778 m (5' 10 ) Wt 177 kg (391 lb 1.5 oz) SpO2 94% BMI 56.12 kg/m?? Smoking Status Every Day BSA 2.96 m?? Intake/Output Summary (Last 24 hours) at 07/10/20255 Last data filed at 07/10/2025 1717 Gross [...] Vent Status (ETT, Trach Only): In use [place] SUP: 5 cm H20 Insp Time (sec): 1.5 sec Vent Mode: PS FiO2 (%): 50 % S RR: 14 [place] SUP: 5 cm H20 MAP (cm H2O): 9 Output by Drain (mL) 07/08/25 07 - 07/08/25 18507/08/25 190 - 07/09/25 0659 07/09/25 07 - 07/09/25 18507/09/251899 - 07/10/25 0659 07/10/25 0700 - 07/10/25 [...] Overview Addendum 07/09/2025 4:10 PM by Lidia Ellsi MD - Complicates care. - Continue Albuterol and DuoNebs. - Wean ventilator as tolerated. - Monitor respiratory status clinically and with ABGs. HTN (hypertension), benign Yes Overview Signed 07/09/2025 4:06 PM by Lidia Ellis MD Resume home medications as appropriate. Depression Yes Overview Addendum 07/10/2025 4:54 PM by Lidia Ellis MD Resume home Duloxetine. Morbid (severe) obesity due to excess calories ([facility]) Yes Overview Addendum 07/09/2025 4:07 PM by Lidia Ellis MD Complicates care. Smoker Yes Overview Signed 07/09/2025 3:05 PM by Lidia Ellis MD - Patient smokes 0.5-1ppd. - Smoking cessation when appropriate. Urge incontinence Yes DM (diabetes mellitus) ([facility]) Yes Overview Addendum 07/09/2025 4:11 PM by Lidia Ellis MD - Patient hyperglycemic, up to 300s. - Insulin drip per protocol. Hidradenitis Yes Absence seizure ([facility]) (Chronic) Yes Overview Addendum 07/10/2025 4:52 PM by Lidia Ellis MD On Lamictal 50mg BID. Acute respiratory failure Yes Overview Signed 07/09/2025 3:57 PM by Lidia Ellis MD - Patient presenting in septic shock due to RLE necrotizing fasciitis. - Requiring ventilator for respiratory support. Wean as tolerated. Septic shock ([facility]) Yes Overview Addendum 07/10/2025 4:53 PM [...] Protection: absorbent pad utilized/changed positioning supports utilized [id number] areas padded [id number] areas padded Problem: Skin Injury Risk Increased [...] Note Cristina Brown 50 y.o. female CSN: [id number] Room/Bed 133/133A Nutrition evaluation type: assessment Reason for evaluation: provider consult Hospital course: 50 y o F transferred from OSH with concern for necrotizing fasciitis; OR 07/08 for excisional debridement of RLE, groin, pubis, and abdominal wall of skin, subcutaneous tissue, and muscle fascia, [id number]. Septic shock secondary to NSTI. Intubated & sedated. TF initiated 07/09. Past medical/ surgical history: Past Medical History[1], celiac disease Surgical History[2] Social history: Social History[3] Additional comments: 07/09: Pt intubated and sedated. Visitor sleeping. Vitals and Basic Assessment: BP: 89/50 Temp: 36.3 ??C (97.3 ??F) Invasive Ventilator Initiated (ETT/Trach Only): Yes Oxygen Therapy: Supplemental oxygen O2 Delivery Method: Endotracheal tube, Mechanical ventilator [place] Coma Scale Score: 10 Satnam/Cubbin Pressure Risk [...] oz) Estimated Needs: Kcal: 22-25 kcal/kg IBW (4889-4732 kcal/d) Protein: 2-2.5 g/kg IBW (136-171 g/d) [...] Surgical ICU Daily Progress Note 07/09/25 Cristina é[facility]zart [facility] 50-year-old female with past [...] decreased. Palpations: Abdomen is soft. Skin: Comments: [id number] open wound with no extension of cellulitis. [...] PEEP (cmH2O): 18 S VT: 450 mL OH SUP: 10 cm H20 Insp Time (sec): 0.8 sec Vent Mode: PS FiO2 (%): 50 % S RR: 22 S VT: 450 mL OH SUP: 10 cm H20 MAP (cm H2O): [...] Absence seizure (CMS/HCC) (Chronic) Yes Overview Addendum 07/09/2025 4:08 PM [...] PM EDT Operative Note Date: 07/08/25 Location: [place] OR Name: Cristina Brown, : 1975, Diagnoses: Pre-op Diagnosis Necrotizing fasciitis (CMS/HCC) Post-op Diagnosis Necrotizing fasciitis (CMS/HCC) Procedure(s): Excisional debridement of right thigh, groin pubis and abdominal wall including skin, subcutaneous tissue and fascia measuring 65 x 20 x 2cm Attending Surgeon(s): * Luanne Crawford - Primary Field Return Repairer(s): * Kristy Fields MD - Resident - [...] Attending Surgeon(s): * Luanne Crawford - Primary Field Return Repairer(s): * Kristy Fields MD - Resident - [...] anxiety, asthma, HLD, celiac disease, presenting to [facility] on 07/08/2025 as transfer with [...] mL IVPB (vial adapter required) 2 g [id number] Deepthi Garcia MD linezolid (Zyvox) injection 600 [...] asthma, HLD, celiac disease, presenting to [facility] on 07/08/2025 as transfer with concern for [...] 4% (Hibiclens). Acknowledged AMINA RAMIREZ 07/08/251916 Void housing relocation to OR Once Acknowledged AMINA RAMIREZ 07/08/251916 [...] ED Course as of 07/09/25132Jul 08, 2025 1819 Upon arrival patient was stable with airway [...] None Disposition Admit Admitting/Attending Physician: LUANNE CRAWFORD [[id number]] Provider Care Team: E EMERGENCY GENERAL SURGERY [...] Description 08/20/2025 10:30 AM EDT Office Visit [facility] General Surgery [address], [address] [place] [address] Lilliana Morfin APRN [address] [place] [address] Scheduled Referrals Name Type Priority Associated Diagnoses Order Schedule Discharge Ambulatory referral to NON Endocrinology Outpatient Referral Routine Morbid (severe) obesity due to excess calories ([facility]) Type 2 diabetes mellitus with hyperglycemia, without long-term current use of insulin ([facility]) Celiac disease Expected: 07/15/2025 (Approximate), Expires: [...] 07/14/2025 2: 26 PM EDT Necrotizing fasciitis ([facility]/HCC) PEP THERAPY Routine 07/14/2025 1:09 PM EDT [...] UNSOLICITED RESULTS Routine 07/11/2025 9:57 AM EDT [facility], E/M 30-74 MINUTES Routine 07/11/2025 8:41 AM EDT Necrotizing fasciitis ([facility]/HCC) Morbid (severe) obesity due to excess calories ([facility]/HCC) Septic shock ([facility]) Type 2 diabetes mellitus with hyperglycemia, without long-term current use of insulin ([facility]) Respiratory insufficiency POCT GLUCOSE METER UNSOLICITED [...] ECG ADULT STAT 07/10/2025 8:42 AM EDT [facility], E/M 30-74 MINUTES Routine 07/10/2025 [...] CO2 MONITORING Routine 07/09/2025 8:00 AM EDT [facility], E/M 30-74 MINUTES Routine 07/09/2025 [...] PANEL, PLASMA STAT 07/08/2025 6:14 PM EDT [facility], E/M 30-74 MINUTES Routine 07/08/2025 5:58 PM EDT documented in this encounter Results * (ABNORMAL) POCT glucose meter (07/19/2025 12:27 PM EDT) [facility] POCT Glucose 197(H) 74 - [...] Comment 07/19/2025 5:32 PM EDT [facility]ARE [facility] Wastewater Supervisor ID Laura Baez 025 5:32 PM EDT [facility]ALTHCARE [facility] Device ID [id number] 07/19/2025 5:32 PM EDT [facility] Specimen Type POC Capillary 07/19/2025 5:32 PM EDT [facility] Blood Capillary blood specimen / Unknown 07/19/2025 12:27 PM EDT 07/19/2025 5:32 PM EDT us Anne Franco MD LAB POINT OF CARE TEST DOCKED DEVICE UNSOLICITED RESULTS Final Result [facility] [address] [place] [address] * Phosphorus (07/19/2025 4:28 AM EDT) Pathologist [facility] Phosphorus, Plasma 3.6 2.5 - 4.5 mg/dL 07/19/2025 5:03 AM EDT [facility] Blood Venous blood specimen / Unknown Venipuncture / Unknown 07/19/2025 4:28 AM EDT 07/19/2025 4:35 AM EDT us Anne Franco MD LAB BLOOD ORDERABLES Sarah l Result Performing Organization Address City/[facility]/ZIP Co de Phone Number [facility] [address] [place] [address] * (ABNORMAL) Magnesium (07/19/2025 4:28 AM EDT) Pathologist [facility] Magnesium, Plasma 1.8(L) 1.9 - 2.4 mg/dL 07/19/2025 5:03 AM EDT [facility] Blood Venous blood specimen / Unknown Venipuncture / Unknown 07/19/2025 4:28 AM EDT 07/19/2025 4:35 AM EDT us Anne Franco MD LAB BLOOD ORDERABLES Sarah l Result Performing Organization Address [facility] Co de Phone Number [facility] [address] [place] [address] * (ABNORMAL) CBC W/O Differential (07/19/2025 4:28 AM EDT) Pathologist [facility] WBC Count 18.39(H) 3.70 - 10.30 10*3/uL LAB HEMATOLOGY METHOD 07/19/2025 4:51 AM EDT [facility] RBC Count 3.50(L) 3.90 - 5.20 10*6/uL LAB HEMATOLOGY METHOD 07/19/2025 4:51 AM EDT [facility] HGB 9.6(L) 11.2 - 15.7 g/dL LAB HEMATOLOGY METHOD 07/19/2025 4:51 AM EDT [facility] HCT 30.7(L) 34.0 - 45.0 % LAB HEMATOLOGY METHOD 07/19/2025 4:51 AM EDT [facility] Platelet Count 627(H) 155 - 369 10*3/uL LAB HEMATOLOGY METHOD 07/19/2025 4:51 AM EDT [facility] MCV 88 79 - 98 fL LAB HEMATOLOGY METHOD 07/19/2025 4:51 AM EDT [facility] MCH 27.4 26.0 - 32.0 pg LAB HEMATOLOGY METHOD 07/19/2025 4:51 AM EDT [facility] MCHC 31.3 30.7 - 35.5 g/dL LAB HEMATOLOGY METHOD 07/19/2025 4:51 AM EDT [facility] RDW 18.2(H) 11.5 - 14.5 % LAB HEMATOLOGY METHOD 07/19/2025 4:51 AM EDT [facility] MPV 10.2 8.8 - 12.5 fL LAB HEMATOLOGY METHOD 07/19/2025 4:51 AM EDT [facility] nRBC 0.1(H) <=0.0 per 100 WBCs LAB HEMATOLOGY METHOD 07/19/2025 4:51 AM EDT [facility] Blood Venous blood specimen / Unknown Venipuncture / Unknown 07/19/2025 4:28 AM EDT 07/19/2025 4:36 AM EDT us Anne Franco MD LAB BLOOD ORDERABLES Sarah bennett Result [facility] [address] [place] [address] * (ABNORMAL) Basic metabolic panel (07/19/2025 4:28 AM EDT) Glucose, Plasma 153(H) 74 - 99 mg/dL 07/19/2025 5:03 AM EDT [facility] BUN, Plasma 14 7 - 21 mg/dL 07/19/2025 5:03 AM EDT [facility] Creatinine, Plasma 0.73 0.60 - 1.10 mg/dL 07/19/2025 5:03 AM EDT [facility] BUN/Creatinine Ratio 19 07/19/2025 5:03 AM EDT [facility] Sodium, Plasma 137 136 - 145 mmol/L 07/19/2025 5:03 AM EDT [facility] Potassium, Plasma 4.3 3.6 - 4.9 mmol/L 07/19/2025 5:03 AM EDT [facility] Chloride, Plasma 97 97 - 107 mmol/L 07/19/2025 5:03 AM EDT [facility] CO2, Plasma 28 22 - 29 mmol/L 07/19/2025 5:03 AM EDT [facility] Anion Gap 12 6 - 16 mmol/L 07/19/2025 5:03 AM EDT [facility] Total Calcium, Plasma 9.0 8.9 - 10.2 mg/dL 07/19/2025 5:03 AM EDT [facility] eGFRcr 101.0 mL/min/1.7 3m*2 07/19/2025 5:03 AM EDT [facility] Comment:Reported eGFRcr in m L/min/1.73m2 is based the CKD-EPI 2020 equation that does not use a race coefficient. Blood Venous blood specimen / Unknown Venipuncture / Unknown 07/19/2025 4:28 AM EDT 07/19/2025 4:35 AM EDT us Anne Franco MD LAB BLOOD ORDERABLES Sarah bennett Result [facility] [address] [place] [address] * (ABNORMAL) POCT glucose meter (07/18/2025 8:33 [...] 07/18/2025 8:36 PM EDT [facility] Wastewater Supervisor ID Zach Martinez 8:36 PM EDT [facility] Device ID [id number] 07/18/2025 8:36 PM EDT [facility] Specimen Type POC Capillary 07/18/2025 8:36 PM EDT [facility] Blood Capillary blood specimen / Unknown 07/18/2025 8:33 PM EDT 07/18/2025 8:36 PM EDT Anne Franco MD LAB POINT OF CARE TEST DOCKED DEVICE UNSOLICITED RESULTS Final Result Performing Organization Address City/[facility] Co de Phone Number [facility] [address] [place] [address] * (ABNORMAL) POCT glucose meter (07/18/2025 6:07 [...] Comment 07/18/2025 6:08 PM EDT [facility] Wastewater Supervisor ID Monique Jacques 6:08 PM EDT [facility] Device ID [id number] 07/18/2025 6:08 PM EDT [facility] Specimen Type POC Capillary 07/18/2025 6:08 PM EDT [facility] Blood Capillary blood specimen / Unknown 07/18/2025 6:07 PM EDT 07/18/2025 6:08 PM EDT Anne Franco MD LAB POINT OF CARE TEST DOCKED DEVICE UNSOLICITED RESULTS Final Result Performing Organization Address City/[facility]/ZIP Co de Phone Number [facility] [address] [place] [address] * (ABNORMAL) POCT glucose meter (07/18/2025 12:36 PM EDT) Pathologist [facility] POCT Glucose 151(H) 74 - 99 mg/dL [...] Comment 07/18/2025 12:38 PM EDT [facility] Wastewater Supervisor ID Laura Baez 025 12:38 PM EDT [facility] Device ID [id number] 07/18/2025 12:38 PM EDT [facility] Specimen Type POC Capillary 07/18/2025 12:38 PM EDT [facility] Blood Capillary blood specimen / Unknown 07/18/2025 12:36 PM EDT 07/18/2025 12:38 PM EDT Anne Franco MD LAB POINT OF CARE TEST DOCKED DEVICE UNSOLICITED RESULTS Final Result Performing Organization Address City/[facility] Co de Phone Number [facility] [address] [place] [address] * (ABNORMAL) POCT glucose meter (07/18/2025 8:39 [...] Comment 07/18/2025 8:41 AM EDT [facility] Wastewater Supervisor ID Laura Baez 025 8:41 AM EDT [facility] Device ID [id number] 07/18/2025 8:41 AM EDT [facility] Specimen Type POC Capillary 07/18/2025 8:41 AM EDT [facility] Blood Capillary blood specimen / Unknown 07/18/2025 8:39 AM EDT 07/18/2025 8:41 AM EDT us Anne Franco MD LAB POINT OF CARE TEST DOCKED DEVICE UNSOLICITED RESULTS Final Result Performing Organization Address City/[facility]/ZIP Co de Phone Number [facility] [address] [place] [address] * (ABNORMAL) Basic metabolic panel (07/18/2025 6:03 AM EDT) Glucose, Plasma 163(H) 74 - 99 mg/dL 07/18/2025 6:45 AM EDT [facility] BUN, Plasma 11 7 - 21 mg/dL 07/18/2025 6:45 AM EDT [facility] Creatinine, Plasma 0.65 0.60 - 1.10 mg/dL 07/18/2025 6:45 AM EDT [facility] BUN/Creatinine Ratio 17 07/18/2025 6:45 AM EDT [facility] Sodium, Plasma 138 136 - 145 mmol/L 07/18/2025 6:45 AM EDT [facility] Potassium, Plasma 3.8 3.6 - 4.9 mmol/L 07/18/2025 6:45 AM EDT [facility] Chloride, Plasma 99 97 - 107 mmol/L 07/18/2025 6:45 AM EDT [facility] CO2, Plasma 29 22 - 29 mmol/L 07/18/2025 6:45 AM EDT [facility] Anion Gap 10 6 - 16 mmol/L 07/18/2025 6:45 AM EDT [facility] Total Calcium, Plasma 8.5(L) 8.9 - 10.2 mg/dL 07/18/2025 6:45 AM EDT [facility] eGFRcr 108.1 mL/min/1.7 3m*2 07/18/2025 6:45 AM EDT [facility] Comment:Reported eGFRcr in m L/min/1.73m2 is based the CKD-EPI 2020 equation that does not use a race coefficient. Blood Venous blood specimen / Unknown Venipuncture / Unknown 07/18/2025 6:03 AM EDT 07/18/2025 6:12 AM EDT us Anne Franco MD LAB BLOOD ORDERABLES Sarah sabrina Result [facility] [address] [place] [address] * (ABNORMAL) CBC W/O Differential (07/18/2025 6:03 AM EDT) WBC Count 16.76(H) 3.70 - 10.30 10*3/uL LAB HEMATOLOGY METHOD 07/18/2025 6:25 AM EDT [facility] RBC Count 3.25(L) 3.90 - 5.20 10*6/uL LAB HEMATOLOGY METHOD 07/18/2025 6:25 AM EDT [facility] HGB 9.1(L) 11.2 - 15.7 g/dL LAB HEMATOLOGY METHOD 07/18/2025 6:25 AM EDT [facility] HCT 28.8(L) 34.0 - 45.0 % LAB HEMATOLOGY METHOD 07/18/2025 6:25 AM EDT [facility] Platelet Count 523(H) 155 - 369 10*3/uL LAB HEMATOLOGY METHOD 07/18/2025 6:25 AM EDT [facility] MCV 89 79 - 98 fL LAB HEMATOLOGY METHOD 07/18/2025 6:25 AM EDT [facility] MCH 28.0 26.0 - 32.0 pg LAB HEMATOLOGY METHOD 07/18/2025 6:25 AM EDT [facility] MCHC 31.6 30.7 - 35.5 g/dL LAB HEMATOLOGY METHOD 07/18/2025 6:25 AM EDT [facility] RDW 17.6(H) 11.5 - 14.5 % LAB HEMATOLOGY METHOD 07/18/2025 6:25 AM EDT [facility] MPV 10.3 8.8 - 12.5 fL LAB HEMATOLOGY METHOD 07/18/2025 6:25 AM EDT [facility] nRBC 0.0 <=0.0 per 100 WBCs LAB HEMATOLOGY METHOD 07/18/2025 6:25 AM EDT [facility] Blood Venous blood specimen / Unknown Venipuncture / Unknown 07/18/2025 6:03 AM EDT 07/18/2025 6:12 AM EDT us Anne Franco MD LAB BLOOD ORDERABLES Sarah bennett Result [facility] [address] [place] [address] * (ABNORMAL) POCT glucose meter (07/17/2025 10:33 [...] 07/17/2025 10:35 PM EDT [facility] Wastewater Supervisor ID Tha, 07/17/2025 10:35 PM EDT [facility] Device ID [id number] 07/17/2025 10:35 PM EDT [facility] Specimen Type POC Capillary 07/17/2025 10:35 PM EDT [facility] Blood Capillary blood specimen / Unknown 07/17/2025 10:33 PM EDT 07/17/2025 10:35 PM EDT us Anne Franco MD LAB POINT OF CARE TEST DOCKED DEVICE UNSOLICITED RESULTS Final Result [facility] [address] [place] [address] * PERIPHERAL IV (SMARTFORM LINK) (07/17/2025 5:14 [...] POCT glucose meter (07/17/2025 5:10 PM EDT) [facility] POCT Glucose 115(H) 74 - [...] Comment 07/17/2025 5:12 PM EDT [facility] Wastewater Supervisor ID Monique Jacques 5:12 PM EDT [facility]ARE [facility] Device ID [id number] 07/17/2025 5:12 PM EDT [facility] Specimen Type POC Capillary 07/17/2025 5:12 PM EDT [facility] Blood Capillary blood specimen / Unknown 07/17/2025 5:10 PM EDT 07/17/2025 5:12 PM EDT us Anne Franco MD LAB POINT OF CARE TEST DOCKED DEVICE UNSOLICITED RESULTS Final Result Performing Organization Address City/State/[facility] Co de Phone Number [facility] [address] [place] [address] * (ABNORMAL) POCT glucose meter (07/17/2025 12:06 PM EDT) [facility] POCT Glucose 211(H) 74 - [...] 07/17/2025 12:07 PM EDT [facility] Wastewater Supervisor ID Josi Ann 12:07 PM EDT [facility]ARE [facility] Device ID [id number] 07/17/2025 12:07 PM EDT [facility] Specimen Type POC Capillary 07/17/2025 12:07 PM EDT [facility] Blood Capillary blood specimen / Unknown 07/17/2025 12:06 PM EDT 07/17/2025 12:07 PM EDT Anne Franco MD LAB POINT OF CARE TEST DOCKED DEVICE UNSOLICITED RESULTS Final Result [facility] [address] [place] [address] * [place] Extremity Limited MSK or Soft [...] by PCR (07/17/2025 10:14 AM EDT) Pathologist [facility] Methicillin Resistant Staphylococcus aureus (MRSA) by PCR Not Detected Not Detected 07/17/2025 12:11 PM EDT [facility] Swab Both anterior nares / Unknown Non-blood Collection / Unknown 07/17/2025 10:14 AM EDT 07/17/2025 10:33 AM EDT Narrative [facility] - 07/17/2025 12:11 PM [...] MICROBIOLOGY - GENERAL ORDER LUANNE Final Result [facility] [address] [place] [address] * (ABNORMAL) POCT glucose meter (07/17/2025 9:35 AM EDT) Pathologist [facility] POCT Glucose 139(H) 74 - 99 mg/dL [...] Comment 07/17/2025 9:37 AM EDT [facility] Wastewater Supervisor ID Seth Josi 9:37 AM EDT [facility] Device ID [id number] 07/17/2025 9:37 AM EDT [facility] Specimen Type POC Capillary 07/17/2025 9:37 AM EDT [facility] Blood Capillary blood specimen / Unknown 07/17/2025 9:35 AM EDT 07/17/2025 9:37 AM EDT us Anne Franco MD LAB POINT OF CARE TEST DOCKED DEVICE UNSOLICITED RESULTS Final Result [facility] [address] [place] [address] * (ABNORMAL) Basic metabolic panel (07/17/2025 5:20 AM EDT) Glucose, Plasma 140(H) 74 - 99 mg/dL 07/17/2025 5:56 AM EDT [facility] BUN, Plasma 8 7 - 21 mg/dL 07/17/2025 5:56 AM EDT [facility] Creatinine, Plasma 0.59(L) 0.60 - 1.10 mg/dL 07/17/2025 5:56 AM EDT [facility] BUN/Creatinine Ratio 14 07/17/2025 5:56 AM EDT [facility] Sodium, Plasma 139 136 - 145 mmol/L 07/17/2025 5:56 AM EDT [facility] Potassium, Plasma 3.8 3.6 - 4.9 mmol/L 07/17/2025 5:56 AM EDT [facility] Chloride, Plasma 97 97 - 107 mmol/L 07/17/2025 5:56 AM EDT [facility] CO2, Plasma 31(H) 22 - 29 mmol/L 07/17/2025 5:56 AM EDT [facility] Anion Gap 11 6 - 16 mmol/L 07/17/2025 5:56 AM EDT [facility] Total Calcium, Plasma 8.6(L) 8.9 - 10.2 mg/dL 07/17/2025 5:56 AM EDT [facility] eGFRcr 110.6 mL/min/1.7 3m*2 07/17/2025 5:56 AM EDT [facility] Comment:Reported eGFRcr in m L/min/1.73m2 is based the CKD-EPI 2020 equation that does not use a race coefficient. Blood Venous blood specimen / Unknown Venipuncture / Unknown 07/17/2025 5:20 AM EDT 07/17/2025 5:27 AM EDT us Anne Franco MD LAB BLOOD ORDERABLES Sarah l Result [facility] [address] [place] [address] * Phosphorus, Plasma (07/17/2025 5:20 AM EDT) Phosphorus, Plasma 3.0 2.5 - 4.5 mg/dL 07/17/2025 5:56 AM EDT [facility] Blood Venous blood specimen / Unknown Venipuncture / Unknown 07/17/2025 5:20 AM EDT 07/17/2025 5:27 AM EDT us Anne Franco MD LAB BLOOD ORDERABLES Sarah l Result Performing Organization Address City/[facility]/ZIP Co de Phone Number [facility] [address] [place] [address] * (ABNORMAL) Magnesium, Plasma (07/17/2025 5:20 AM EDT) Magnesium, Plasma 1.8(L) 1.9 - 2.4 mg/dL 07/17/2025 5:56 AM EDT [facility] Blood Venous blood specimen / Unknown Venipuncture / Unknown 07/17/2025 5:20 AM EDT 07/17/2025 5:27 AM EDT us Anne Franco MD LAB BLOOD ORDERABLES Sarah l Result [facility] [address] [place] [address] * (ABNORMAL) CBC W/O Differential (07/17/2025 5:20 AM EDT) WBC Count 22.29(H) 3.70 - 10.30 10*3/uL LAB HEMATOLOGY METHOD 07/17/2025 5:37 AM EDT [facility] RBC Count 3.36(L) 3.90 - 5.20 10*6/uL LAB HEMATOLOGY METHOD 07/17/2025 5:37 AM EDT [facility] HGB 9.2(L) 11.2 - 15.7 g/dL LAB HEMATOLOGY METHOD 07/17/2025 5:37 AM EDT [facility] HCT 29.4(L) 34.0 - 45.0 % LAB HEMATOLOGY METHOD 07/17/2025 5:37 AM EDT [facility] Platelet Count 484(H) 155 - 369 10*3/uL LAB HEMATOLOGY METHOD 07/17/2025 5:37 AM EDT [facility] MCV 88 79 - 98 fL LAB HEMATOLOGY METHOD 07/17/2025 5:37 AM EDT [facility] MCH 27.4 26.0 - 32.0 pg LAB HEMATOLOGY METHOD 07/17/2025 5:37 AM EDT [facility] MCHC 31.3 30.7 - 35.5 g/dL LAB HEMATOLOGY METHOD 07/17/2025 5:37 AM EDT [facility] RDW 17.3(H) 11.5 - 14.5 % LAB HEMATOLOGY METHOD 07/17/2025 5:37 AM EDT [facility] MPV 10.4 8.8 - 12.5 fL LAB HEMATOLOGY METHOD 07/17/2025 5:37 AM EDT [facility] nRBC 0.1(H) <=0.0 per 100 WBCs LAB HEMATOLOGY METHOD 07/17/2025 5:37 AM EDT [facility] Blood Venous blood specimen / Unknown Venipuncture / Unknown 07/17/2025 5:20 AM EDT 07/17/2025 5:27 AM EDT us Anne Franco MD LAB BLOOD ORDERABLES Sarah bennett Result [facility] [address] [place] [address] * (ABNORMAL) POCT glucose meter (07/16/2025 8:24 [...] 07/16/2025 8:26 PM EDT [facility] Wastewater Supervisor ID Lacie Marcelo 07/16/20 8:26 PM EDT [facility]ALTH[facility]ARE [facility] Device ID [id number] 07/16/2025 8:26 PM EDT [facility] Specimen Type POC Capillary 07/16/2025 8:26 PM EDT [facility] Blood Capillary blood specimen / Unknown 07/16/2025 8:24 PM EDT 07/16/2025 8:26 PM EDT Anne Franco MD LAB POINT OF CARE TEST DOCKED DEVICE UNSOLICITED RESULTS Final Result Performing Organization Address City/State/[facility] Co de Phone Number [facility] [address] [place] [address] * (ABNORMAL) POCT glucose meter (07/16/2025 5:34 PM EDT) [facility] POCT Glucose 190(H) 74 - 99 mg/dL [...] 07/16/2025 5:36 PM EDT [facility] Wastewater Supervisor ID Diego Munroe 07/16/20 5:36 PM EDT [facility] Device ID [id number] 07/16/2025 5:36 PM EDT [facility] Specimen Type POC Capillary 07/16/2025 5:36 PM EDT [facility] Blood Capillary blood specimen / Unknown 07/16/2025 5:34 PM EDT 07/16/2025 5:36 PM EDT Anne Franco MD LAB POINT OF CARE TEST DOCKED DEVICE UNSOLICITED RESULTS Final Result Performing Organization Address City/[facility] de Phone Number [facility] [address] [place] [address] * (ABNORMAL) POCT glucose meter (07/16/2025 12:06 [...] Comment 07/16/2025 12:08 PM EDT [facility] Wastewater Supervisor ID Diego Munroe 07/16/20 12:08 PM EDT [facility] Device ID [id number] 07/16/2025 12:08 PM EDT [facility] Specimen Type POC Capillary 07/16/2025 12:08 PM EDT [facility] Blood Capillary blood specimen / Unknown 07/16/2025 12:06 PM EDT 07/16/2025 12:08 PM EDT Anne Franco MD LAB POINT OF CARE TEST DOCKED DEVICE UNSOLICITED RESULTS Final Result Performing Organization Address City/[facility] Co de Phone Number HEALTHCARE LAB [address] [place] [address] * XR Chest 1 View (07/16/2025 11:25 [...] POCT glucose meter (07/16/2025 8:22 AM EDT) [facility] POCT Glucose 172(H) 74 - 99 mg/dL [...] Comment 07/16/2025 8:24 AM EDT HEALTHCARE LAB Wastewater Supervisor ID Diego Munroe 07/16/20 8:24 AM EDT HEALTHCARE LAB Device ID [id number] 07/16/2025 8:24 AM EDT [facility] Specimen Type POC Capillary 07/16/2025 8:24 AM EDT [facility] Blood Capillary blood specimen / Unknown 07/16/2025 8:22 AM EDT 07/16/2025 8:24 AM EDT Anne Franco MD LAB POINT OF CARE TEST DOCKED DEVICE UNSOLICITED RESULTS Final Result Performing Organization Address City/[facility]/ZIP Co de Phone Number [facility] [address] [place] [address] * Phosphorus (07/16/2025 5:25 AM EDT) [facility] Phosphorus, Plasma 2.8 2.5 - 4.5 mg/dL 07/16/2025 7:12 AM EDT [facility] Blood Venous blood specimen / Unknown Venipuncture / Unknown 07/16/2025 5:25 AM EDT 07/16/2025 5:33 AM EDT Anne Franco MD LAB BLOOD ORDERABLES Sarah l Result [facility] [address] [place] [address] * (ABNORMAL) Magnesium (07/16/2025 5:25 AM EDT) [facility] Magnesium, Plasma 1.8(L) 1.9 - 2.4 mg/dL 07/16/2025 7:12 AM EDT [facility] Blood Venous blood specimen / Unknown Venipuncture / Unknown 07/16/2025 5:25 AM EDT 07/16/2025 5:33 AM EDT us Anne Franco MD LAB BLOOD ORDERABLES Sarah bennett Result [facility] [address] [place] [address] * (ABNORMAL) Basic metabolic panel (07/16/2025 5:25 AM EDT) Glucose, Plasma 149(H) 74 - 99 mg/dL 07/16/2025 6:01 AM EDT [facility] BUN, Plasma 9 7 - 21 mg/dL 07/16/2025 6:01 AM EDT [facility] Creatinine, Plasma 0.48(L) 0.60 - 1.10 mg/dL 07/16/2025 6:01 AM EDT [facility] BUN/Creatinine Ratio 19 07/16/2025 6:01 AM EDT [facility] Sodium, Plasma 140 136 - 145 mmol/L 07/16/2025 6:01 AM EDT [facility] Potassium, Plasma 3.4(L) 3.6 - 4.9 mmol/L 07/16/2025 6:01 AM EDT [facility] Chloride, Plasma 99 97 - 107 mmol/L 07/16/2025 6:01 AM EDT [facility] CO2, Plasma 31(H) 22 - 29 mmol/L 07/16/2025 6:01 AM EDT [facility] Anion Gap 10 6 - 16 mmol/L 07/16/2025 6:01 AM EDT [facility] Total Calcium, Plasma 8.6(L) 8.9 - 10.2 mg/dL 07/16/2025 6:01 AM EDT [facility] eGFRcr 116.3 mL/min/1.7 3m*2 07/16/2025 6:01 AM EDT [facility] Comment:Reported eGFRcr in m L/min/1.73m2 is based the CKD-EPI 2020 equation that does not use a race coefficient. Blood Venous blood specimen / Unknown Venipuncture / Unknown 07/16/2025 5:25 AM EDT 07/16/2025 5:33 AM EDT us Anne Franco MD LAB BLOOD ORDERABLES Sarah sabrina Result [facility] [address] [place] [address] * (ABNORMAL) CBC W/O Differential (07/16/2025 5:25 AM EDT) WBC Count 22.22(H) 3.70 - 10.30 10*3/uL LAB HEMATOLOGY METHOD 07/16/2025 5:41 AM EDT [facility] RBC Count 3.30(L) 3.90 - 5.20 10*6/uL LAB HEMATOLOGY METHOD 07/16/2025 5:41 AM EDT [facility] HGB 8.9(L) 11.2 - 15.7 g/dL LAB HEMATOLOGY METHOD 07/16/2025 5:41 AM EDT [facility] HCT 28.9(L) 34.0 - 45.0 % LAB HEMATOLOGY METHOD 07/16/2025 5:41 AM EDT [facility] Platelet Count 376(H) 155 - 369 10*3/uL LAB HEMATOLOGY METHOD 07/16/2025 5:41 AM EDT [facility] MCV 88 79 - 98 fL LAB HEMATOLOGY METHOD 07/16/2025 5:41 AM EDT [facility] MCH 27.0 26.0 - 32.0 pg LAB HEMATOLOGY METHOD 07/16/2025 5:41 AM EDT [facility] MCHC 30.8 30.7 - 35.5 g/dL LAB HEMATOLOGY METHOD 07/16/2025 5:41 AM EDT [facility] RDW 17.2(H) 11.5 - 14.5 % LAB HEMATOLOGY METHOD 07/16/2025 5:41 AM EDT [facility] MPV 10.3 8.8 - 12.5 fL LAB HEMATOLOGY METHOD 07/16/2025 5:41 AM EDT [facility] nRBC 0.1(H) <=0.0 per 100 WBCs LAB HEMATOLOGY METHOD 07/16/2025 5:41 AM EDT [facility] Blood Venous blood specimen / Unknown Venipuncture / Unknown 07/16/2025 5:25 AM EDT 07/16/2025 5:33 AM EDT Anne Franco MD LAB BLOOD ORDERABLES Sarah l Result [facility] [address] [place] [address] * (ABNORMAL) POCT glucose meter (07/15/2025 9:38 [...] Comment 07/15/2025 9:39 PM EDT HEALTHCARE LAB Wastewater Supervisor ID Yessenia Ramirez 9:39 PM EDT HEALTHCARE LAB Device ID [id number] 07/15/2025 9:39 PM EDT HEALTHCARE LAB Specimen Type POC Capillary 07/15/2025 9:39 PM EDT [facility] Blood Capillary blood specimen / Unknown 07/15/2025 9:38 PM EDT 07/15/2025 9:39 PM EDT us Anne Franco MD LAB POINT OF CARE TEST DOCKED DEVICE UNSOLICITED RESULTS Final Result Performing Organization Address City/[facility]/ZIP Co de Phone Number HEALTHCARE LAB [address] [place] [address] * (ABNORMAL) POCT glucose meter (07/15/2025 6:03 [...] 07/15/2025 6:04 PM EDT [facility] Wastewater Supervisor ID Venessa Amin 07/15/2025 6:04 PM EDT [facility] Device ID [id number] 07/15/2025 6:04 PM EDT [facility] Specimen Type POC Capillary 07/15/2025 6:04 PM EDT [facility]ARE [facility] Blood Capillary blood specimen / Unknown 07/15/2025 6:03 PM EDT 07/15/2025 6:04 PM EDT us Anne Franco MD LAB POINT OF CARE TEST DOCKED DEVICE UNSOLICITED RESULTS Final Result Performing Organization Address City/State/[facility] Co de Phone Number [facility] [address] [place] [address] * (ABNORMAL) POCT glucose meter (07/15/2025 12:38 PM EDT) [facility] POCT Glucose 153(H) 74 - 99 mg/dL [...] 07/15/2025 12:40 PM EDT [facility] Wastewater Supervisor ID Venessa Amin 07/15/2025 12:40 PM EDT [facility] Device ID [id number] 07/15/2025 12:40 PM EDT [facility] Specimen Type POC Capillary 07/15/2025 12:40 PM EDT [facility] Blood Capillary blood specimen / Unknown 07/15/2025 12:38 PM EDT 07/15/2025 12:40 PM EDT us Anne Franco MD LAB POINT OF CARE TEST DOCKED DEVICE UNSOLICITED RESULTS Final Result Performing Organization Address City/[facility] Co de Phone Number [facility]ARE [facility] [address] [place] [address] * (ABNORMAL) POCT glucose meter (07/15/2025 8:38 [...] Comment 07/15/2025 8:39 AM EDT HEALTHCARE LAB Wastewater Supervisor ID Venessa Amin 07/15/2025 8:39 AM EDT HEALTHCARE LAB Device ID [id number] 07/15/2025 8:39 AM EDT [facility] Specimen Type POC Capillary 07/15/2025 8:39 AM EDT [facility] Blood Capillary blood specimen / Unknown 07/15/2025 8:38 AM EDT 07/15/2025 8:39 AM EDT us Anne Franco MD LAB POINT OF CARE TEST DOCKED DEVICE UNSOLICITED RESULTS Final Result Performing Organization Address City/[facility] Co de Phone Number HEALTHCARE LAB [address] [place] [address] * (ABNORMAL) Phosphorus (07/15/2025 4:50 AM EDT) Phosphorus, Plasma 2.3(L) 2.5 - 4.5 mg/dL 07/15/2025 7:33 AM EDT [facility] Blood Venous blood specimen / Unknown Venipuncture / Unknown 07/15/2025 4:50 AM EDT 07/15/2025 4:59 AM EDT us Anne Franco MD LAB BLOOD ORDERABLES Sarah l Result [facility] [address] [place] [address] * Magnesium (07/15/2025 4:50 AM EDT) [facility] Magnesium, Plasma 1.9 1.9 - 2.4 mg/dL 07/15/2025 7:33 AM EDT [facility] Blood Venous blood specimen / Unknown Venipuncture / Unknown 07/15/2025 4:50 AM EDT 07/15/2025 4:59 AM EDT Anne Franco MD LAB BLOOD ORDERABLES Sarah l Result Performing Organization Address [facility]/ZIP Co de Phone Number [facility] [address] [place] [address] * (ABNORMAL) Basic metabolic panel (07/15/2025 4:50 AM EDT) [facility] Glucose, Plasma 150(H) 74 - 99 mg/dL 07/15/2025 5:31 AM EDT [facility] BUN, Plasma 11 7 - 21 mg/dL 07/15/2025 5:31 AM EDT [facility] Creatinine, Plasma 0.54(L) 0.60 - 1.10 mg/dL 07/15/2025 5:31 AM EDT [facility] BUN/Creatinine Ratio 20 07/15/2025 5:31 AM EDT [facility] Sodium, Plasma 136 136 - 145 mmol/L 07/15/2025 5:31 AM EDT [facility] Potassium, Plasma 4.1 3.6 - 4.9 mmol/L 07/15/2025 5:31 AM EDT [facility] Chloride, Plasma 95(L) 97 - 107 mmol/L 07/15/2025 5:31 AM EDT [facility] CO2, Plasma 32(H) 22 - 29 mmol/L 07/15/2025 5:31 AM EDT [facility] Anion Gap 9 6 - 16 mmol/L 07/15/2025 5:31 AM EDT [facility] Total Calcium, Plasma 8.8(L) 8.9 - 10.2 mg/dL 07/15/2025 5:31 AM EDT [facility] eGFRcr 113.0 mL/min/1.7 3m*2 07/15/2025 5:31 AM EDT [facility] Comment:Reported eGFRcr in m L/min/1.73m2 is based the CKD-EPI 2020 equation that does not use a race coefficient. Blood Venous blood specimen / Unknown Venipuncture / Unknown 07/15/2025 4:50 AM EDT 07/15/2025 4:59 AM EDT us Anne Franco MD LAB BLOOD ORDERABLES Sarah l Result Performing Organization Address City/[facility] Co de Phone Number [facility] [address] [place] [address] * (ABNORMAL) POCT glucose meter (07/14/2025 7:57 [...] Comment 07/14/2025 7:58 PM EDT HEALTHCARE LAB Wastewater Supervisor ID Bernard Chirinos 07/14/20 25 7:58 PM EDT HEALTHCARE LAB Device ID [id number] 07/14/2025 7:58 PM EDT HEALTHCARE LAB Specimen Type POC Capillary 07/14/2025 7:58 PM EDT [facility] Blood Capillary blood specimen / Unknown 07/14/2025 7:57 PM EDT 07/14/2025 7:58 PM EDT us Anne Franco MD LAB POINT OF CARE TEST DOCKED DEVICE UNSOLICITED RESULTS Final Result Performing Organization Address City/[facility]/ZIP Co de Phone Number [facility] [address] [place] [address] * (ABNORMAL) POCT glucose meter (07/14/2025 4:56 PM EDT) [facility] POCT Glucose 154(H) 74 - [...] 07/14/2025 4:58 PM EDT [facility] Wastewater Supervisor ID Higgins Riana L 07/14/2025 4:58 PM EDT [facility] Device ID [id number] 07/14/2025 4:58 PM EDT HEALTHCARE LAB Specimen Type POC Capillary 07/14/2025 4:58 PM EDT [facility] Blood Capillary blood specimen / Unknown 07/14/2025 4:56 PM EDT 07/14/2025 4:58 PM EDT Anne Franco MD LAB POINT OF CARE TEST DOCKED DEVICE UNSOLICITED RESULTS Final Result [facility] [address] [place] [address] * (ABNORMAL) POCT glucose meter (07/14/2025 12:38 PM EDT) [facility] POCT Glucose 143(H) 74 - [...] 07/14/2025 12:39 PM EDT [facility] Wastewater Supervisor ID Laura Baez 025 12:39 PM EDT [facility] Device ID [id number] 07/14/2025 12:39 PM EDT [facility] Specimen Type POC Capillary 07/14/2025 12:39 PM EDT [facility] Blood Capillary blood specimen / Unknown 07/14/2025 12:38 PM EDT 07/14/2025 12:39 PM EDT us Anne Franco MD LAB POINT OF CARE TEST DOCKED DEVICE UNSOLICITED RESULTS Final Result [facility]ARE [facility] [address] [place] [address] * (ABNORMAL) Basic metabolic panel (07/14/2025 9:36 AM EDT) Glucose, Plasma 191(H) 74 - 99 mg/dL 07/14/2025 10:15 AM EDT [facility] BUN, Plasma 16 7 - 21 mg/dL 07/14/2025 10:15 AM EDT [facility] Creatinine, Plasma 0.61 0.60 - 1.10 mg/dL 07/14/2025 10:15 AM EDT [facility] BUN/Creatinine Ratio 26 07/14/2025 10:15 AM EDT [facility] Sodium, Plasma 138 136 - 145 mmol/L 07/14/2025 10:15 AM EDT [facility] Potassium, Plasma 3.2(L) 3.6 - 4.9 mmol/L 07/14/2025 10:15 AM EDT [facility] Chloride, Plasma 96(L) 97 - 107 mmol/L 07/14/2025 10:15 AM EDT [facility] CO2, Plasma 33(H) 22 - 29 mmol/L 07/14/2025 10:15 AM EDT [facility] Anion Gap 9 6 - 16 mmol/L 07/14/2025 10:15 AM EDT [facility] Total Calcium, Plasma 8.7(L) 8.9 - 10.2 mg/dL 07/14/2025 10:15 AM EDT [facility] eGFRcr 109.8 mL/min/1.7 3m*2 07/14/2025 10:15 AM EDT [facility] Comment:Reported eGFRcr in m L/min/1.73m2 is based the CKD-EPI 2020 equation that does not use a race coefficient. Blood Venous blood specimen / Unknown Venipuncture / Unknown 07/14/2025 9:36 AM EDT 07/14/2025 9:44 AM EDT us Anne Franco MD LAB BLOOD ORDERABLES Sarah l Result Performing Organization Address City/[facility]/ZIP Co de Phone Number [facility] [address] [place] [address] * (ABNORMAL) Magnesium, Plasma (07/14/2025 9:36 AM EDT) Magnesium, Plasma 1.7(L) 1.9 - 2.4 mg/dL 07/14/2025 10:15 AM EDT [facility] Blood Venous blood specimen / Unknown Venipuncture / Unknown 07/14/2025 9:36 AM EDT 07/14/2025 9:44 AM EDT us Anne Franco MD LAB BLOOD ORDERABLES Sarah l Result Performing Organization Address [facility] [place] [address] * (ABNORMAL) Phosphorus, Plasma (07/14/2025 9:36 AM EDT) Phosphorus, Plasma 2.2(L) 2.5 - 4.5 mg/dL 07/14/2025 10:15 AM EDT [facility] Blood Venous blood specimen / Unknown Venipuncture / Unknown 07/14/2025 9:36 AM EDT 07/14/2025 9:44 AM EDT us Anne Franco MD LAB BLOOD ORDERABLES Sarah l Result Performing Organization Address City/[facility] Co de Phone Number [facility] [address] [place] [address] * (ABNORMAL) CBC W/O Differential (07/14/2025 9:36 AM EDT) [facility] WBC Count 21.20(H) 3.70 - 10.30 10*3/uL LAB HEMATOLOGY METHOD 07/14/2025 9:52 AM EDT [facility] RBC Count 3.37(L) 3.90 - 5.20 10*6/uL LAB HEMATOLOGY METHOD 07/14/2025 9:52 AM EDT [facility] HGB 9.2(L) 11.2 - 15.7 g/dL LAB HEMATOLOGY METHOD 07/14/2025 9:52 AM EDT [facility] HCT 29.4(L) 34.0 - 45.0 % LAB HEMATOLOGY METHOD 07/14/2025 9:52 AM EDT [facility] Platelet Count 314 155 - 369 10*3/uL LAB HEMATOLOGY METHOD 07/14/2025 9:52 AM EDT [facility] MCV 87 79 - 98 fL LAB HEMATOLOGY METHOD 07/14/2025 9:52 AM EDT [facility] MCH 27.3 26.0 - 32.0 pg LAB HEMATOLOGY METHOD 07/14/2025 9:52 AM EDT [facility] MCHC 31.3 30.7 - 35.5 g/dL LAB HEMATOLOGY METHOD 07/14/2025 9:52 AM EDT [facility] RDW 17.2(H) 11.5 - 14.5 % LAB HEMATOLOGY METHOD 07/14/2025 9:52 AM EDT [facility] MPV 10.2 8.8 - 12.5 fL LAB HEMATOLOGY METHOD 07/14/2025 9:52 AM EDT [facility] nRBC 0.1(H) <=0.0 per 100 WBCs LAB HEMATOLOGY METHOD 07/14/2025 9:52 AM EDT [facility] Blood Venous blood specimen / Unknown Venipuncture / Unknown 07/14/2025 9:36 AM EDT 07/14/2025 9:44 AM EDT us Anne Franco MD LAB BLOOD ORDERABLES Sarah bennett Result [facility] [address] [place] [address] * (ABNORMAL) POCT glucose meter (07/14/2025 8:39 [...] Comment 07/14/2025 8:41 AM EDT HEALTHCARE LAB Wastewater Supervisor ID Laura Baez 025 8:41 AM EDT HEALTHCARE LAB Device ID [id number] 07/14/2025 8:41 AM EDT HEALTHCARE LAB Specimen Type POC Capillary 07/14/2025 8:41 AM EDT [facility]ALTH[facility]ARE LAB Blood Capillary blood specimen / Unknown 07/14/2025 8:39 AM EDT 07/14/2025 8:41 AM EDT us Anne Franco MD LAB POINT OF CARE TEST DOCKED DEVICE UNSOLICITED RESULTS Final Result Performing Organization Address City/State/[facility] Co de Phone Number [facility] [address] [place] [address] * (ABNORMAL) POCT glucose meter (07/14/2025 6:18 [...] 07/14/2025 6:20 AM EDT [facility] Wastewater Supervisor ID Rita Alejandro 6:20 AM EDT [facility] Device ID [id number] 07/14/2025 6:20 AM EDT [facility] Specimen Type POC Capillary 07/14/2025 6:20 AM EDT HEALTHCARE LAB Blood Capillary blood specimen / Unknown 07/14/2025 6:18 AM EDT 07/14/2025 6:20 AM EDT Anne Franco MD LAB POINT OF CARE TEST DOCKED DEVICE UNSOLICITED RESULTS Final Result Performing Organization Address City/[facility]/ZIP Co de Phone Number [facility] [address] [place] [address] * (ABNORMAL) POCT glucose meter (07/13/2025 9:18 [...] 07/13/2025 9:19 PM EDT [facility] Wastewater Supervisor ID Yenny Tong 025 9:19 PM EDT [facility] Device ID [id number] 07/13/2025 9:19 PM EDT HEALTHCARE LAB Specimen Type POC Capillary 07/13/2025 9:19 PM EDT HEALTH[facility]ARE LAB Blood Capillary blood specimen / Unknown 07/13/2025 9:18 PM EDT 07/13/2025 9:19 PM EDT Anne Franco MD LAB POINT OF CARE TEST DOCKED DEVICE UNSOLICITED RESULTS Final Result Performing Organization Address City/[facility]/ZIP Co de Phone Number [facility] [address] [place] [address] * (ABNORMAL) POCT glucose meter (07/13/2025 6:01 [...] Comment 07/13/2025 6:02 PM EDT HEALTHCARE LAB Wastewater Supervisor ID Laura Baez 025 6:02 PM EDT HEALTHCARE LAB Device ID [id number] 07/13/2025 6:02 PM EDT HEALTHCARE LAB Specimen Type POC Capillary 07/13/2025 6:02 PM EDT HEALTH[facility]ARE LAB Blood Capillary blood specimen / Unknown 07/13/2025 6:01 PM EDT 07/13/2025 6:02 PM EDT Anne Franco MD LAB POINT OF CARE TEST DOCKED DEVICE UNSOLICITED RESULTS Final Result Performing Organization Address City/State/[facility] Co de Phone Number [facility]ARE [facility] [address] [place] [address] * (ABNORMAL) POCT glucose meter (07/13/2025 12:12 [...] Comment 07/13/2025 12:14 PM EDT HEALTHCARE LAB Wastewater Supervisor ID Laura Baez 025 12:14 PM EDT HEALTHCARE LAB Device ID [id number] 07/13/2025 12:14 PM EDT HEALTHCARE LAB Specimen Type POC Capillary 07/13/2025 12:14 PM EDT [facility]ALTH[facility] Blood Capillary blood specimen / Unknown 07/13/2025 12:12 PM EDT 07/13/2025 12:14 PM EDT us Anne Franco MD LAB POINT OF CARE TEST DOCKED DEVICE UNSOLICITED RESULTS Final Result Performing Organization Address [facility] Co de Phone Number [facility] [address] [place] [address] * (ABNORMAL) Phosphorus (07/13/2025 10:21 AM EDT) Phosphorus, Plasma 2.2(L) 2.5 - 4.5 mg/dL 07/13/2025 11:23 AM EDT [facility] Blood Venous blood specimen / Unknown Venipuncture / Unknown 07/13/2025 10:21 AM EDT 07/13/2025 10:31 AM EDT us Luanne Crawford MD LAB BLOOD ORDERABLES Final Result Performing Organization Address [facility] Co de Phone Number [facility] [address] [place] [address] * (ABNORMAL) Magnesium, Plasma (07/13/2025 10:21 AM EDT) Magnesium, Plasma 1.7(L) 1.9 - 2.4 mg/dL 07/13/2025 11:23 AM EDT [facility] Blood Venous blood specimen / Unknown Venipuncture / Unknown 07/13/2025 10:21 AM EDT 07/13/2025 10:31 AM EDT Luanne Crawford MD LAB BLOOD ORDERABLES Final Result Performing Organization Address City/[facility] Co de Phone Number [facility] [address] [place] [address] * (ABNORMAL) Basic Metabolic Panel, Plasma (07/13/2025 10:21 AM EDT) Glucose, Plasma 135(H) 74 - 99 mg/dL 07/13/2025 11:23 AM EDT [facility] BUN, Plasma 22(H) 7 - 21 mg/dL 07/13/2025 11:23 AM EDT [facility] Creatinine, Plasma 0.62 0.60 - 1.10 mg/dL 07/13/2025 11:23 AM EDT [facility] BUN/Creatinine Ratio 35 07/13/2025 11:23 AM EDT [facility] Sodium, Plasma 138 136 - 145 mmol/L 07/13/2025 11:23 AM EDT [facility] Potassium, Plasma 3.7 3.6 - 4.9 mmol/L 07/13/2025 11:23 AM EDT [facility] Chloride, Plasma 95(L) 97 - 107 mmol/L 07/13/2025 11:23 AM EDT [facility] CO2, Plasma 30(H) 22 - 29 mmol/L 07/13/2025 11:23 AM EDT [facility] Anion Gap 13 6 - 16 mmol/L 07/13/2025 11:23 AM EDT [facility] Total Calcium, Plasma 9.0 8.9 - 10.2 mg/dL 07/13/2025 11:23 AM EDT [facility] eGFRcr 109.3 mL/min/1.7 3m*2 07/13/2025 11:23 AM EDT [facility] Comment:Reported eGFRcr in m L/min/1.73m2 is based the CKD-EPI 2020 equation that does not use a race coefficient. Blood Venous blood specimen / Unknown Venipuncture / Unknown 07/13/2025 10:21 AM EDT 07/13/2025 10:31 AM EDT us Luanne Crawford MD LAB BLOOD ORDERABLES Final Result [facility] [address] [place] [address] * (ABNORMAL) CBC W/O Differential (07/13/2025 10:21 AM EDT) WBC Count 19.56(H) 3.70 - 10.30 10*3/uL LAB HEMATOLOGY METHOD 07/13/2025 10:59 AM EDT [facility] RBC Count 3.67(L) 3.90 - 5.20 10*6/uL LAB HEMATOLOGY METHOD 07/13/2025 10:59 AM EDT [facility] HGB 10.2(L) 11.2 - 15.7 g/dL LAB HEMATOLOGY METHOD 07/13/2025 10:59 AM EDT [facility] HCT 32.3(L) 34.0 - 45.0 % LAB HEMATOLOGY METHOD 07/13/2025 10:59 AM EDT [facility] Platelet Count 296 155 - 369 10*3/uL LAB HEMATOLOGY METHOD 07/13/2025 10:59 AM EDT [facility] MCV 88 79 - 98 fL LAB HEMATOLOGY METHOD 07/13/2025 10:59 AM EDT [facility] MCH 27.8 26.0 - 32.0 pg LAB HEMATOLOGY METHOD 07/13/2025 10:59 AM EDT [facility] MCHC 31.6 30.7 - 35.5 g/dL LAB HEMATOLOGY METHOD 07/13/2025 10:59 AM EDT [facility] RDW 17.6(H) 11.5 - 14.5 % LAB HEMATOLOGY METHOD 07/13/2025 10:59 AM EDT [facility] MPV 10.3 8.8 - 12.5 fL LAB HEMATOLOGY METHOD 07/13/2025 10:59 AM EDT [facility] nRBC 0.0 <=0.0 per 100 WBCs LAB HEMATOLOGY METHOD 07/13/2025 10:59 AM EDT [facility] Blood Venous blood specimen / Unknown Venipuncture / Unknown 07/13/2025 10:21 AM EDT 07/13/2025 10:31 AM EDT us Luanne Crawford MD LAB BLOOD ORDERABLES Final Result [facility] [address] [place] [address] * (ABNORMAL) POCT glucose meter (07/13/2025 8:50 AM EDT) [facility] POCT Glucose 102(H) 74 - 99 mg/dL 07/13/2025 8:53 AM EDT [facility] Comment:Accuracy of a glucos [...] Comment 07/13/2025 8:53 AM EDT HEALTHCARE LAB Wastewater Supervisor ID Laura Baez 025 8:53 AM EDT [facility] Device ID [id number] 07/13/2025 8:53 AM EDT [facility] Specimen Type POC Capillary 07/13/2025 8:53 AM EDT [facility]ALTH[facility]ARE [facility] Blood Capillary blood specimen / Unknown 07/13/2025 8:50 AM EDT 07/13/2025 8:53 AM EDT us Anne Franco MD LAB POINT OF CARE TEST DOCKED DEVICE UNSOLICITED RESULTS Final Result Performing Organization Address [facility] de Phone Number HEALTHCARE LAB [address] [place] [id number] * (ABNORMAL) POCT glucose meter (07/13/2025 6:11 [...] 07/13/2025 6:13 AM EDT [facility] Wastewater Supervisor ID Rita Alejandro 6:13 AM EDT HEALTH[facility]ARE [facility] Device ID [id number] 07/13/2025 6:13 AM EDT [facility]ALTH[facility] Specimen Type POC Capillary 07/13/2025 6:13 AM EDT [facility] Blood Capillary blood specimen / Unknown 07/13/2025 6:11 AM EDT 07/13/2025 6:13 AM EDT us Anne Franco MD LAB POINT OF CARE TEST DOCKED DEVICE UNSOLICITED RESULTS Final Result Performing Organization Address City/[facility] Co de Phone Number HEALTHCARE LAB [address] [place] [address] * (ABNORMAL) POCT glucose meter (07/12/2025 9:28 PM EDT) [facility] POCT Glucose 107(H) 74 - [...] Comment 07/12/2025 9:30 PM EDT [facility] Wastewater Supervisor ID Yenny Tong 025 9:30 PM EDT [facility] Device ID [id number] 07/12/2025 9:30 PM EDT [facility] Specimen Type POC Capillary 07/12/2025 9:30 PM EDT [facility] Blood Capillary blood specimen / Unknown 07/12/2025 9:28 PM EDT 07/12/2025 9:30 PM EDT Anne Franco MD LAB POINT OF CARE TEST DOCKED DEVICE UNSOLICITED RESULTS Final Result [facility] [address] [place] [address] * (ABNORMAL) POCT glucose meter (07/12/2025 6:04 PM EDT) [facility] POCT Glucose 129(H) 74 - [...] 07/12/2025 6:06 PM EDT [facility] Wastewater Supervisor ID Jeana Bear 07/12/2025 6:06 PM EDT [facility] Device ID [id number] 07/12/2025 6:06 PM EDT [facility] Specimen Type POC Capillary 07/12/2025 6:06 PM EDT [facility] Blood Capillary blood specimen / Unknown 07/12/2025 6:04 PM EDT 07/12/2025 6:06 PM EDT Anne Franco MD LAB POINT OF CARE TEST DOCKED DEVICE UNSOLICITED RESULTS Final Result [facility] [address] [place] [address] * PERIPHERAL IV (SMARTFORM LINK) (07/12/2025 3:51 [...] Comment 07/12/2025 11:56 AM EDT [facility] Wastewater Supervisor ID Jeana Bear 07/12/2025 11:56 AM EDT [facility]ARE LAB Device ID [id number] 07/12/2025 11:56 AM EDT [facility]ARE LAB Specimen Type POC Capillary 07/12/2025 11:56 AM EDT [facility] Blood Capillary blood specimen / Unknown 07/12/2025 11:55 AM EDT 07/12/2025 11:56 AM EDT us Dorcas Hennessy MD LAB POINT OF CARE TE ST DOCKED DEVICE UNSOLICITED RESULTS Final Result Performing Organization Address City/State/[facility] Co de Phone Number [facility]ARE [facility] [address] [place], [place] [id number] * XR Chest 1 View (07/12/2025 11:11 [...] for testing. Comment 07/12/2025 8:42 AM EDT [facility] Wastewater Supervisor ID Jeana Bear 07/12/2025 8:42 AM EDT [facility] Device ID [id number] 07/12/2025 8:42 AM EDT [facility] Specimen Type POC Capillary 07/12/2025 8:42 AM EDT [facility] Blood Capillary blood specimen / Unknown 07/12/2025 8:41 AM EDT 07/12/2025 8:42 AM EDT us Dorcas Hennessy MD LAB POINT OF CARE TE ST DOCKED DEVICE UNSOLICITED RESULTS Final Result Performing Organization Address City/[facility]/ZIP Co de Phone Number [facility] [address] [place] [address] * Phosphorus (07/12/2025 12:25 AM EDT) Pathologist [facility] Phosphorus, Plasma 2.9 2.5 - 4.5 mg/dL 07/12/2025 1:22 AM EDT [facility] Blood Venous blood specimen / Unknown Venipuncture / Unknown 07/12/2025 12:25 AM EDT 07/12/2025 12:52 AM EDT us Luanne Crawford MD LAB BLOOD ORDERABLES Final Result [facility] [address] [place] [address] * Magnesium, Plasma (07/12/2025 12:25 AM EDT) Magnesium, Plasma 2.0 1.9 - 2.4 mg/dL 07/12/2025 1:22 AM EDT [facility] Blood Venous blood specimen / Unknown Venipuncture / Unknown 07/12/2025 12:25 AM EDT 07/12/2025 12:52 AM EDT us Luanne Crawford MD LAB BLOOD ORDERABLES Final Result [facility] [address] [place] [address] * (ABNORMAL) Basic Metabolic Panel, Plasma (07/12/2025 12:25 AM EDT) Glucose, Plasma 92 74 - 99 mg/dL 07/12/2025 1:22 AM EDT [facility] BUN, Plasma 18 7 - 21 mg/dL 07/12/2025 1:22 AM EDT [facility] Creatinine, Plasma 0.84 0.60 - 1.10 mg/dL 07/12/2025 1:22 AM EDT [facility] BUN/Creatinine Ratio 21 07/12/2025 1:22 AM EDT [facility] Sodium, Plasma 142 136 - 145 mmol/L 07/12/2025 1:22 AM EDT [facility] Potassium, Plasma 3.6 3.6 - 4.9 mmol/L 07/12/2025 1:22 AM EDT [facility] Chloride, Plasma 103 97 - 107 mmol/L 07/12/2025 1:22 AM EDT [facility] CO2, Plasma 31(H) 22 - 29 mmol/L 07/12/2025 1:22 AM EDT [facility] Anion Gap 8 6 - 16 mmol/L 07/12/2025 1:22 AM EDT [facility] Total Calcium, Plasma 8.8(L) 8.9 - 10.2 mg/dL 07/12/2025 1:22 AM EDT [facility] eGFRcr 85.3 mL/min/1.7 3m*2 07/12/2025 1:22 AM EDT [facility] Comment:Reported eGFRcr in m L/min/1.73m2 is based the CKD-EPI 2020 equation that does not use a race coefficient. Blood Venous blood specimen / Unknown Venipuncture / Unknown 07/12/2025 12:25 AM EDT 07/12/2025 12:52 AM EDT us Luanne Crawford MD LAB BLOOD ORDERABLES Final Result [facility] [address] [place] [address] * (ABNORMAL) CBC W/O Differential (07/12/2025 12:25 AM EDT) WBC Count 15.81(H) 3.70 - 10.30 10*3/uL LAB HEMATOLOGY METHOD 07/12/2025 1:05 AM EDT [facility] RBC Count 3.39(L) 3.90 - 5.20 10*6/uL LAB HEMATOLOGY METHOD 07/12/2025 1:05 AM EDT [facility] HGB 9.3(L) 11.2 - 15.7 g/dL LAB HEMATOLOGY METHOD 07/12/2025 1:05 AM EDT [facility] HCT 29.8(L) 34.0 - 45.0 % LAB HEMATOLOGY METHOD 07/12/2025 1:05 AM EDT [facility] Platelet Count 276 155 - 369 10*3/uL LAB HEMATOLOGY METHOD 07/12/2025 1:05 AM EDT [facility] MCV 88 79 - 98 fL LAB HEMATOLOGY METHOD 07/12/2025 1:05 AM EDT [facility] MCH 27.4 26.0 - 32.0 pg LAB HEMATOLOGY METHOD 07/12/2025 1:05 AM EDT [facility] MCHC 31.2 30.7 - 35.5 g/dL LAB HEMATOLOGY METHOD 07/12/2025 1:05 AM EDT [facility] RDW 18.0(H) 11.5 - 14.5 % LAB HEMATOLOGY METHOD 07/12/2025 1:05 AM EDT [facility] MPV 10.5 8.8 - 12.5 fL LAB HEMATOLOGY METHOD 07/12/2025 1:05 AM EDT [facility] nRBC 0.0 <=0.0 per 100 WBCs LAB HEMATOLOGY METHOD 07/12/2025 1:05 AM EDT [facility] Blood Venous blood specimen / Unknown Venipuncture / Unknown 07/12/2025 12:25 AM EDT 07/12/2025 12:55 AM EDT us Luanne Crawford MD LAB BLOOD ORDERABLES Final Result [facility] [address] [place] [address] * (ABNORMAL) POCT Glucose (if patient NPO, on TPN or continuous nutrition) (07/11/2025 8:45 PM EDT) POCT Glucose 119(A) 74 - 99 mg/dL [facility] Test Strip Lot Number \[id number]\ [facility] Test Strip Expiration 09/24/2026 [facility] Blood Venous blood specimen / Unknown 07/11/2025 8:45 PM EDT us Dorcas Hennessy MD POINT OF CARE TEST ENTER/EDIT OR DERABLES Final Result Performing Organization Address City/[facility]/ZIP Co de Phone Number [facility] [address] [place] [address] * (ABNORMAL) POCT Glucose - Before Meals [...] DERABLES Final Result [facility] [address] [place] [address] * (ABNORMAL) POCT glucose meter (07/11/2025 8:42 PM EDT) [facility] POCT Glucose 119(H) 74 - 99 mg/dL [...] 07/11/2025 8:43 PM EDT [facility] Wastewater Supervisor ID Jf Cruz 07/11/2025 8:43 PM EDT [facility] Device ID [id number] 07/11/2025 8:43 PM EDT [facility] Specimen Type POC Capillary 07/11/2025 8:43 PM EDT [facility] Blood Capillary blood specimen / Unknown 07/11/2025 8:42 PM EDT 07/11/2025 8:43 PM EDT Dorcas Hennessy MD LAB POINT OF CARE TE ST DOCKED DEVICE UNSOLICITED RESULTS Final Result [facility] [address] [place] [address] * (ABNORMAL) POCT glucose meter (07/11/2025 5:38 PM EDT) [facility] POCT Glucose 142(H) 74 - [...] 07/11/2025 5:40 PM EDT [facility] Wastewater Supervisor ID Ayana Amato 07/11/2025 5:40 PM EDT [facility] Device ID [id number] 07/11/2025 5:40 PM EDT [facility] Specimen Type POC Capillary 07/11/2025 5:40 PM EDT [facility] Blood Capillary blood specimen / Unknown 07/11/2025 5:38 PM EDT 07/11/2025 5:40 PM EDT us Dorcas Hennessy MD LAB POINT OF CARE TE ST DOCKED DEVICE UNSOLICITED RESULTS Final Result Performing Organization Address City/[facility] Co de Phone Number [facility] [address] [place] [address] * (ABNORMAL) POCT glucose meter (07/11/2025 3:36 [...] 07/11/2025 3:38 PM EDT [facility] Wastewater Supervisor ID Radha Frias 07/11/20 3:38 PM EDT [facility] Device ID [id number] 07/11/2025 3:38 PM EDT [facility] Specimen Type POC Venous 07/11/2025 3:38 PM EDT [facility] Blood Venous blood specimen / Unknown 07/11/2025 3:36 PM EDT 07/11/2025 3:38 PM EDT us Dorcas Hennessy MD LAB POINT OF CARE TE ST DOCKED DEVICE UNSOLICITED RESULTS Final Result Performing Organization Address City/[facility] Co de Phone Number [facility] [address] [place] [address] * (ABNORMAL) POCT glucose meter (07/11/2025 1:52 [...] 07/11/2025 1:54 PM EDT [facility] Wastewater Supervisor ID Ayana Amato 07/11/2025 1:54 PM EDT [facility] Device ID [id number] 07/11/2025 1:54 PM EDT [facility] Specimen Type POC Capillary 07/11/2025 1:54 PM EDT [facility] Blood Capillary blood specimen / Unknown 07/11/2025 1:52 PM EDT 07/11/2025 1:54 PM EDT Dorcas Hennessy MD LAB POINT OF CARE TE ST DOCKED DEVICE UNSOLICITED RESULTS Final Result Performing Organization Address City/State/[facility] Co de Phone Number [facility] [address] [place] [address] * (ABNORMAL) POCT glucose meter (07/11/2025 12:12 PM EDT) [facility] POCT Glucose 154(H) 74 - [...] 07/11/2025 12:13 PM EDT [facility] Wastewater Supervisor ID Ayana Amato 07/11/2025 12:13 PM EDT [facility] Device ID [id number] 07/11/2025 12:13 PM EDT [facility] Specimen Type POC Capillary 07/11/2025 12:13 PM EDT [facility] Blood Capillary blood specimen / Unknown 07/11/2025 12:12 PM EDT 07/11/2025 12:13 PM EDT Luanne Crawford MD LAB POINT OF CARE TEST DOCKED DEVICE UNSOLICITED RESULTS Final Result Performing Organization Address [facility] de Phone Number [facility]ARE [facility] [address] [place] [address] * (ABNORMAL) POCT glucose meter (07/11/2025 9:57 [...] for testing. Comment 07/11/2025 9:59 AM EDT [facility] Wastewater Supervisor ID Ayana Amato 07/11/2025 9:59 AM EDT [facility] Device ID [id number] 07/11/2025 9:59 AM EDT [facility] Specimen Type POC Capillary 07/11/2025 9:59 AM EDT [facility] Blood Capillary blood specimen / Unknown 07/11/2025 9:57 AM EDT 07/11/2025 9:59 AM EDT us Luanne Crawford MD LAB POINT OF CARE TEST DOCKED DEVICE UNSOLICITED RESULTS Final Result Performing Organization Address [facility] de Phone Number [facility]ARE [facility] [address] [place] [address] * [place] [facility], E/M 30-74 MINUTES (07/11/2025 8:41 [...] POCT glucose meter (07/11/2025 8:13 AM EDT) [facility] POCT Glucose 140(H) 74 - 99 mg/dL [...] for testing. Comment 07/11/2025 8:15 AM EDT [employer] [facility] Wastewater Supervisor ID Ayana Amato 07/11/2025 8:15 AM EDT [facility] Device ID [id number] 07/11/2025 8:15 AM EDT [facility] Specimen Type POC Capillary 07/11/2025 8:15 AM EDT [facility] Blood Capillary blood specimen / Unknown 07/11/2025 8:13 AM EDT 07/11/2025 8:15 AM EDT us Luanne Crawford MD LAB POINT OF CARE TEST DOCKED DEVICE UNSOLICITED RESULTS Final Result Performing Organization Address [facility] de Phone Number [facility] [address] [place] [address] * (ABNORMAL) POCT glucose meter (07/11/2025 6:03 [...] Comment 07/11/2025 6:05 AM EDT [facility] Wastewater Supervisor ID Cheyanne Briceño 07/11/2025 6:05 AM EDT [facility] Device ID [id number] 07/11/2025 6:05 AM EDT [facility] Specimen Type POC Capillary 07/11/2025 6:05 AM EDT [facility] Blood Capillary blood specimen / Unknown 07/11/2025 6:03 AM EDT 07/11/2025 6:05 AM EDT us Luanne Crawford MD LAB POINT OF CARE TEST DOCKED DEVICE UNSOLICITED RESULTS Final Result Performing Organization Address City/[facility] de Phone Number [facility] [address] [place] [address] * (ABNORMAL) POCT glucose meter (07/11/2025 4:04 [...] 07/11/2025 4:06 AM EDT [facility] Wastewater Supervisor ID Cheyanne Briceño 07/11/2025 4:06 AM EDT [facility]ALTH[facility] Device ID [id number] 07/11/2025 4:06 AM EDT [facility] Specimen Type POC Capillary 07/11/2025 4:06 AM EDT [facility] Blood Capillary blood specimen / Unknown 07/11/2025 4:04 AM EDT 07/11/2025 4:06 AM EDT us Luanne Crawford MD LAB POINT OF CARE TEST DOCKED DEVICE UNSOLICITED RESULTS Final Result Performing Organization Address [facility] Co de Phone Number [facility] [address] [place] [address] * (ABNORMAL) POCT glucose meter (07/11/2025 2:02 [...] Comment 07/11/2025 2:03 AM EDT [facility] Wastewater Supervisor ID Cheyanne Briceño 07/11/2025 2:03 AM EDT [facility] Device ID [id number] 07/11/2025 2:03 AM EDT [facility] Specimen Type POC Capillary 07/11/2025 2:03 AM EDT [facility] Blood Capillary blood specimen / Unknown 07/11/2025 2:02 AM EDT 07/11/2025 2:03 AM EDT us Luanne Crawford MD LAB POINT OF CARE TEST DOCKED DEVICE UNSOLICITED RESULTS Final Result Performing Organization Address [facility] Co de Phone Number [facility] [address] [place] [address] * Phosphorus (07/11/2025 12:09 AM EDT) Phosphorus, Plasma 3.7 2.5 - 4.5 mg/dL 07/11/2025 12:54 AM EDT [facility] Blood Venous blood specimen / Unknown Venipuncture / Unknown 07/11/2025 12:09 AM EDT 07/11/2025 12:26 AM EDT Luanne Crawford MD LAB BLOOD ORDERABLES Final Result Performing Organization Address [facility]/ZIP Co de Phone Number [facility] [address] [place] [address] * (ABNORMAL) Magnesium, Plasma (07/11/2025 12:09 AM EDT) Magnesium, Plasma 1.8(L) 1.9 - 2.4 mg/dL 07/11/2025 12:54 AM EDT [facility] Blood Venous blood specimen / Unknown Venipuncture / Unknown 07/11/2025 12:09 AM EDT 07/11/2025 12:26 AM EDT Luanne Crawford MD LAB BLOOD ORDERABLES Final Result Performing Organization Address [facility]/ZIP Co de Phone Number [facility] [address] [place] [address] * (ABNORMAL) Basic Metabolic Panel, Plasma (07/11/2025 12:09 AM EDT) Glucose, Plasma 163(H) 74 - 99 mg/dL 07/11/2025 12:54 AM EDT [facility] BUN, Plasma 20 7 - 21 mg/dL 07/11/2025 12:54 AM EDT [facility] Creatinine, Plasma 0.99 0.60 - 1.10 mg/dL 07/11/2025 12:54 AM EDT [facility] BUN/Creatinine Ratio 20 07/11/2025 12:54 AM EDT [facility] Sodium, Plasma 141 136 - 145 mmol/L 07/11/2025 12:54 AM EDT [facility] Potassium, Plasma 3.8 3.6 - 4.9 mmol/L 07/11/2025 12:54 AM EDT [facility] Chloride, Plasma 104 97 - 107 mmol/L 07/11/2025 12:54 AM EDT [facility] CO2, Plasma 27 22 - 29 mmol/L 07/11/2025 12:54 AM EDT [facility] Anion Gap 10 6 - 16 mmol/L 07/11/2025 12:54 AM EDT [facility] Total Calcium, Plasma 9.1 8.9 - 10.2 mg/dL 07/11/2025 12:54 AM EDT [facility] eGFRcr 70.0 mL/min/1.7 3m*2 07/11/2025 12:54 AM EDT [facility] Comment:Reported eGFRcr in m L/min/1.73m2 is based the CKD-EPI 2020 equation that does not use a race coefficient. Blood Venous blood specimen / Unknown Venipuncture / Unknown 07/11/2025 12:09 AM EDT 07/11/2025 12:26 AM EDT us Luanne Crawford MD LAB BLOOD ORDERABLES Final Result [facility] [address] [place] [address] * (ABNORMAL) CBC W/O Differential (07/11/2025 12:09 AM EDT) WBC Count 13.23(H) 3.70 - 10.30 10*3/uL LAB HEMATOLOGY METHOD 07/11/2025 12:36 AM EDT [facility] RBC Count 3.65(L) 3.90 - 5.20 10*6/uL LAB HEMATOLOGY METHOD 07/11/2025 12:36 AM EDT [facility] HGB 10.1(L) 11.2 - 15.7 g/dL LAB HEMATOLOGY METHOD 07/11/2025 12:36 AM EDT [facility] HCT 32.1(L) 34.0 - 45.0 % LAB HEMATOLOGY METHOD 07/11/2025 12:36 AM EDT [facility] Platelet Count 270 155 - 369 10*3/uL LAB HEMATOLOGY METHOD 07/11/2025 12:36 AM EDT [facility] MCV 88 79 - 98 fL LAB HEMATOLOGY METHOD 07/11/2025 12:36 AM EDT [facility] MCH 27.7 26.0 - 32.0 pg LAB HEMATOLOGY METHOD 07/11/2025 12:36 AM EDT [facility] MCHC 31.5 30.7 - 35.5 g/dL LAB HEMATOLOGY METHOD 07/11/2025 12:36 AM EDT [facility] RDW 17.9(H) 11.5 - 14.5 % LAB HEMATOLOGY METHOD 07/11/2025 12:36 AM EDT [facility] MPV 10.7 8.8 - 12.5 fL LAB HEMATOLOGY METHOD 07/11/2025 12:36 AM EDT [facility] nRBC 0.0 <=0.0 per 100 WBCs LAB HEMATOLOGY METHOD 07/11/2025 12:36 AM EDT [facility] Blood Venous blood specimen / Unknown Venipuncture / Unknown 07/11/2025 12:09 AM EDT 07/11/2025 12:29 AM EDT us Luanne Crawford MD LAB BLOOD ORDERABLES Final Result [facility] [address] [place] [address] * (ABNORMAL) POCT glucose meter (07/11/2025 12:04 [...] 07/11/2025 12:06 AM EDT [facility] Wastewater Supervisor ID Cheyanne Briceño 07/11/2025 12:06 AM EDT [facility] Device ID [id number] 07/11/2025 12:06 AM EDT [facility]ALTH[facility]ARE [facility] Specimen Type POC Capillary 07/11/2025 12:06 AM EDT [facility] Blood Capillary blood specimen / Unknown 07/11/2025 12:04 AM EDT 07/11/2025 12:06 AM EDT us Luanne Crawford MD LAB POINT OF CARE TEST DOCKED DEVICE UNSOLICITED RESULTS Final Result Performing Organization Address City/[facility] Co de Phone Number [facility] [address] [place] [address] * (ABNORMAL) POCT glucose meter (07/10/2025 10:02 [...] Comment 07/10/2025 10:03 PM EDT [facility]ALTH[facility]ARE [facility] Wastewater Supervisor ID Lidia Ugalde 07/10/2025 10:03 PM EDT HEALTHCARE LAB Device ID [id number] 07/10/2025 10:03 PM EDT [facility]ALTH[facility]ARE [facility] Specimen Type POC Capillary 07/10/2025 10:03 PM EDT [facility] Blood Capillary blood specimen / Unknown 07/10/2025 10:02 PM EDT 07/10/2025 10:03 PM EDT us Luanne Crawford MD LAB POINT OF CARE TEST DOCKED DEVICE UNSOLICITED RESULTS Final Result Performing Organization Address City/[facility] Co de Phone Number [facility] [address] [place] [address] * (ABNORMAL) Blood gas panel, arterial (07/10/2025 8:23 PM EDT) pH, Arterial 7.30(L) 7.35 - 7.45 LAB HEMATOLOGY METHOD 07/10/2025 8:40 PM EDT [facility] pCO2, Arterial 57(H) 35 - 48 mmHg LAB HEMATOLOGY METHOD 07/10/2025 8:40 PM EDT [facility] pO2, Arterial 80(L) 83 - 108 mmHg LAB HEMATOLOGY METHOD 07/10/2025 8:40 PM EDT [facility] SO2, Measured, Arterial 95 94 - 98 % LAB HEMATOLOGY METHOD 07/10/2025 8:40 PM EDT [facility] Base Excess, Arterial 1.1 -2.0 - 3.0 mmol/L LAB HEMATOLOGY METHOD 07/10/2025 8:40 PM EDT [facility] Bicarbonate, Calculated, Arterial 28(H) 22 - 26 mmol/L LAB HEMATOLOGY METHOD 07/10/2025 8:40 PM EDT [facility] Hematocrit, Whole Blood 31.5(L) 34.0 - 45.0 % LAB HEMATOLOGY METHOD 07/10/2025 8:40 PM EDT [facility] Sodium, Whole Blood 138 136 - 145 mmol/L LAB HEMATOLOGY METHOD 07/10/2025 8:40 PM EDT [facility] Potassium, Whole Blood 3.9 3.6 - 4.9 mmol/L LAB HEMATOLOGY METHOD 07/10/2025 8:40 PM EDT [facility] Chloride, Whole Blood 103 97 - 107 mmol/L LAB HEMATOLOGY METHOD 07/10/2025 8:40 PM EDT [facility] Glucose, Whole Blood 206(H) 74 - 99 mg/dL LAB HEMATOLOGY METHOD 07/10/2025 8:40 PM EDT [facility] Ionized Calcium, Whole Blood 5.0 4.6 - 5.1 mg/dL LAB HEMATOLOGY METHOD 07/10/2025 8:40 PM EDT [facility] Lactate, Arterial, Whole Blood 1.7(H) 0.5 - 1.6 mmol/L LAB HEMATOLOGY METHOD 07/10/2025 8:40 PM EDT [facility] Blood Arterial blood specimen / Unknown Arterial Puncture / Unknown 07/10/2025 8:23 PM EDT 07/10/2025 8:35 PM EDT us Luanne Crawford MD LAB BLOOD ORDERABLES Final Result [facility] [address] [place] [address] * (ABNORMAL) POCT glucose meter (07/10/2025 8:03 PM EDT) [facility] POCT Glucose 206(H) 74 - 99 mg/dL [...] 07/10/2025 8:05 PM EDT [facility] Wastewater Supervisor ID Cheyanne Briceño 07/10/2025 8:05 PM EDT [facility] Device ID [id number] 07/10/2025 8:05 PM EDT [facility] Specimen Type POC Capillary 07/10/2025 8:05 PM EDT [facility] Blood Capillary blood specimen / Unknown 07/10/2025 8:03 PM EDT 07/10/2025 8:05 PM EDT Luanne Crawford MD LAB POINT OF CARE TEST DOCKED DEVICE UNSOLICITED RESULTS Final Result [facility] [address] [place] [address] * (ABNORMAL) POCT glucose meter (07/10/2025 6:22 PM EDT) [facility] POCT Glucose 150(H) 74 - [...] 07/10/2025 6:25 PM EDT [facility] Wastewater Supervisor ID SegoviaMartin villarrealnicholas Barry 025 6:25 PM EDT [facility] Device ID [id number] 07/10/2025 6:25 PM EDT [facility] Specimen Type POC Capillary 07/10/2025 6:25 PM EDT [facility] Blood Capillary blood specimen / Unknown 07/10/2025 6:22 PM EDT 07/10/2025 6:25 PM EDT us Luanne Crawford MD LAB POINT OF CARE TEST DOCKED DEVICE UNSOLICITED RESULTS Final Result Performing Organization Address City/[facility]/ZIP Co de Phone Number [facility] [address] [place] [address] * (ABNORMAL) POCT glucose meter (07/10/2025 2:17 [...] Comment 07/10/2025 2:19 PM EDT [facility]ALTH[facility]ARE [facility] Wastewater Supervisor ID Zara Segovia 025 2:19 PM EDT [facility]ALTH[facility]ARE LAB Device ID [id number] 07/10/2025 2:19 PM EDT [facility] Specimen Type POC Arterial 07/10/2025 2:19 PM EDT [facility] Blood Arterial blood specimen / Unknown 07/10/2025 2:17 PM EDT 07/10/2025 2:19 PM EDT us Luanne Crawford MD LAB POINT OF CARE TEST DOCKED DEVICE UNSOLICITED RESULTS Final Result Performing Organization Address City/[facility]/ZIP Co de Phone Number [facility] [address] [place] [address] * XR Abdomen 1 View (07/10/2025 12:03 [...] of the abdomen. COMPARISON: None. FINDINGS: Limited [id number] abdominal radiograph for the purpose of locating tube position. The tip of the nasogastric tube is within the mid stomach. Procedure Note Bernabe Sen MD - 07/10/2025 CLINICAL INDICATION: feeding tube placement TECHNIQUE: Supine radiograph of the abdomen. COMPARISON: None. FINDINGS: Limited [id number] abdominal radiograph for the purpose of locatingtube [...] 99 mg/dL 07/10/2025 12:02 PM EDT [facility] Comment:Accuracy of a glucos e result [...] for testing. Comment 07/10/2025 12:02 PM EDT [facility] Wastewater Supervisor ID Segovia, Symleandraa F 025 12:02 PM EDT [facility] Device ID [id number] 07/10/2025 12:02 PM EDT [facility] Specimen Type POC Arterial 07/10/2025 12:02 PM EDT [facility] Blood Arterial blood specimen / Unknown 07/10/2025 12:00 PM EDT 07/10/2025 12:02 PM EDT Luanne Crawford MD LAB POINT OF CARE TEST DOCKED DEVICE UNSOLICITED RESULTS Final Result Performing Organization Address City/[facility] Co de Phone Number [facility] [address] [place] [address] * (ABNORMAL) POCT glucose meter (07/10/2025 9:50 [...] Comment 07/10/2025 9:52 AM EDT [facility] Wastewater Supervisor ID Segovia, Symantha F 025 9:52 AM EDT [facility]ALTHCARE LAB Device ID [id number] 07/10/2025 9:52 AM EDT [facility]ALTH[facility]ARE LAB Specimen Type POC Arterial 07/10/2025 9:52 AM EDT [facility] Blood Arterial blood specimen / Unknown 07/10/2025 9:50 AM EDT 07/10/2025 9:52 AM EDT us Luanne Crawford MD LAB POINT OF CARE TEST DOCKED DEVICE UNSOLICITED RESULTS Final Result Performing Organization Address City/[facility]/ZIP Co de Phone Number [facility]ALTHCARE LAB [address] [place] [address] * ECG Adult (07/10/2025 8:42 AM EDT) EKG DIAGNOSIS CLASS Abnormal MUSE ECG Ventricular Rate 79 BPM MUSE ECG Atrial Rate 79 BPM MUSE ECG OH Interval 188 ms MUSE ECG QRSD Interval 90 ms MUSE ECG QT Interval 354 ms MUSE ECG QTC Interval 405 ms MUSE ECG P [place] 44 degrees MUSE ECG R [place] 17 degrees MUSE ECG T Wave [place] 27 degrees MUSE ECG Diagnosis Sinus rhythm with frequent premature ventricular complexes MUSE ECG Diagnosis Low voltage QRS MUSE ECG Diagnosis Cannot rule out Anterior infarct , age undetermined MUSE ECG Diagnosis MUSE ECG Diagnosis MUSE ECG Diagnosis Confirmed by Octavio Walsh ([id number]) on 07/10/2025 11:49:20 AM MUSE ECG 07/10/2025 8:42 AM EDT 07/10/2025 11:49 AM EDT us Luanne Crawford MD ECG ORDERABLES Final Resu lt MUSE ECG * [place] [facility], E/M 30-74 MINUTES (07/10/2025 8:15 [...] for testing. Comment 07/10/2025 9:22 AM EDT [facility] Wastewater Supervisor ID Segovia, Symleandraa F 025 9:22 AM EDT [facility] Device ID [id number] 07/10/2025 9:22 AM EDT [facility] Specimen Type POC Arterial 07/10/2025 9:22 AM EDT [facility] Blood Arterial blood specimen / Unknown 07/10/2025 8:04 AM EDT 07/10/2025 9:22 AM EDT us Luanne Crawford MD LAB POINT OF CARE TEST DOCKED DEVICE UNSOLICITED RESULTS Final Result Performing Organization Address City/State/[facility] Co de Phone Number HEALTHCARE LAB [address] [place] [address] * (ABNORMAL) POCT glucose meter (07/10/2025 6:04 [...] Comment 07/10/2025 6:05 AM EDT [facility]ARE [facility] Wastewater Supervisor ID Cheyanne Briceño 07/10/2025 6:05 AM EDT HEALTHCARE LAB Device ID [id number] 07/10/2025 6:05 AM EDT [facility]ALTH[facility]ARE [facility] Specimen Type POC Arterial 07/10/2025 6:05 AM EDT [facility] Blood Arterial blood specimen / Unknown 07/10/2025 6:04 AM EDT 07/10/2025 6:05 AM EDT Luanne Crawford MD LAB POINT OF CARE TEST DOCKED DEVICE UNSOLICITED RESULTS Final Result Performing Organization Address [facility] Co de Phone Number [facility]ARE [facility] [address] [place] [address] * (ABNORMAL) POCT glucose meter (07/10/2025 3:59 [...] Comment 07/10/2025 4:01 AM EDT [facility] Wastewater Supervisor ID hCeyanne Briceño 07/10/2025 4:01 AM EDT HEALTHCARE LAB Device ID [id number] 07/10/2025 4:01 AM EDT [facility]ARE LAB Specimen Type POC Arterial 07/10/2025 4:01 AM EDT [facility] Blood Arterial blood specimen / Unknown 07/10/2025 3:59 AM EDT 07/10/2025 4:01 AM EDT us Luanne Crawford MD LAB POINT OF CARE TEST DOCKED DEVICE UNSOLICITED RESULTS Final Result Performing Organization Address City/[facility]/ZIP Co de Phone Number [facility]ARE [facility] [address] [place] [address] * (ABNORMAL) POCT glucose meter (07/10/2025 3:01 AM EDT) [facility] POCT Glucose 165(H) 74 - 99 mg/dL [...] Comment 07/10/2025 3:03 AM EDT [facility] Wastewater Supervisor ID Cheyanne Briceño 07/10/2025 3:03 AM EDT [facility] LAB Device ID [id number] 07/10/2025 3:03 AM EDT [facility] Specimen Type POC Arterial 07/10/2025 3:03 AM EDT [facility] Blood Arterial blood specimen / Unknown 07/10/2025 3:01 AM EDT 07/10/2025 3:03 AM EDT us Luanne Crawford MD LAB POINT OF CARE TEST DOCKED DEVICE UNSOLICITED RESULTS Final Result Performing Organization Address City/State/[facility] Co de Phone Number [facility] [address] [place] [address] * (ABNORMAL) POCT glucose meter (07/10/2025 2:03 AM EDT) [facility] POCT Glucose 180(H) 74 - 99 mg/dL [...] 07/10/2025 2:04 AM EDT [facility] Wastewater Supervisor ID Cheyanne Briceño 07/10/2025 2:04 AM EDT HEALTHCARE LAB Device ID [id number] 07/10/2025 2:04 AM EDT [facility]ARE [facility] Specimen Type POC Arterial 07/10/2025 2:04 AM EDT [facility] Blood Arterial blood specimen / Unknown 07/10/2025 2:03 AM EDT 07/10/2025 2:04 AM EDT Luanne Crawford MD LAB POINT OF CARE TEST DOCKED DEVICE UNSOLICITED RESULTS Final Result Performing Organization Address City/[facility]/ZIP Co de Phone Number [facility] [address] [place] [address] * (ABNORMAL) POCT glucose meter (07/10/2025 12:59 AM EDT) [facility] POCT Glucose 158(H) 74 - 99 mg/dL [...] for testing. Comment 07/10/2025 1:00 AM EDT [employer] [employer] [facility] Wastewater Supervisor ID Cheyanne Briceño 07/10/2025 1:00 AM EDT HEALTHCARE LAB Device ID [id number] 07/10/2025 1:00 AM EDT [facility] Specimen Type POC Arterial 07/10/2025 1:00 AM EDT [facility] Blood Arterial blood specimen / Unknown 07/10/2025 12:59 AM EDT 07/10/2025 1:00 AM EDT Luanne Crawford MD LAB POINT OF CARE TEST DOCKED DEVICE UNSOLICITED RESULTS Final Result [facility] [address] [place] [address] * Phosphorus (07/10/2025 12:03 AM EDT) [facility] Phosphorus, Plasma 4.2 2.5 - 4.5 mg/dL 07/10/2025 12:40 AM EDT [facility] Blood Arterial blood specimen / Unknown Venipuncture / Unknown 07/10/2025 12:03 AM EDT 07/10/2025 12:10 AM EDT us Luanne Crawford MD LAB BLOOD ORDERABLES Final Result [facility] [address] [place] [address] * Magnesium, Plasma (07/10/2025 12:03 AM EDT) Magnesium, Plasma 2.1 1.9 - 2.4 mg/dL 07/10/2025 12:40 AM EDT [facility] Blood Arterial blood specimen / Unknown Venipuncture / Unknown 07/10/2025 12:03 AM EDT 07/10/2025 12:10 AM EDT us Luanne Crawford MD LAB BLOOD ORDERABLES Final Result Performing Organization Address [facility]/ZIP Co de Phone Number [facility] [address] [place] [address] * (ABNORMAL) Basic Metabolic Panel, Plasma (07/10/2025 12:03 AM EDT) Glucose, Plasma 155(H) 74 - 99 mg/dL 07/10/2025 12:40 AM EDT [facility] BUN, Plasma 22(H) 7 - 21 mg/dL 07/10/2025 12:40 AM EDT [facility] Creatinine, Plasma 1.25(H) 0.60 - 1.10 mg/dL 07/10/2025 12:40 AM EDT [facility] BUN/Creatinine Ratio 18 07/10/2025 12:40 AM EDT [facility] Sodium, Plasma 134(L) 136 - 145 mmol/L 07/10/2025 12:40 AM EDT [facility] Potassium, Plasma 3.7 3.6 - 4.9 mmol/L 07/10/2025 12:40 AM EDT [facility] Chloride, Plasma 101 97 - 107 mmol/L 07/10/2025 12:40 AM EDT [facility] CO2, Plasma 25 22 - 29 mmol/L 07/10/2025 12:40 AM EDT [facility] Anion Gap 8 6 - 16 mmol/L 07/10/2025 12:40 AM EDT [facility] Total Calcium, Plasma 9.3 8.9 - 10.2 mg/dL 07/10/2025 12:40 AM EDT [facility] eGFRcr 52.9 mL/min/1.7 3m*2 07/10/2025 12:40 AM EDT [facility] Comment:Reported eGFRcr in m L/min/1.73m2 is based the CKD-EPI 2020 equation that does not use a race coefficient. Blood Arterial blood specimen / Unknown Venipuncture / Unknown 07/10/2025 12:03 AM EDT 07/10/2025 12:10 AM EDT us Luanne Crawford MD LAB BLOOD ORDERABLES Final Result [facility] [address] [place] [address] * (ABNORMAL) CBC W/O Differential (07/10/2025 12:03 AM EDT) WBC Count 17.64(H) 3.70 - 10.30 10*3/uL LAB HEMATOLOGY METHOD 07/10/2025 12:22 AM EDT [facility] RBC Count 3.83(L) 3.90 - 5.20 10*6/uL LAB HEMATOLOGY METHOD 07/10/2025 12:22 AM EDT [facility] HGB 10.6(L) 11.2 - 15.7 g/dL LAB HEMATOLOGY METHOD 07/10/2025 12:22 AM EDT [facility] HCT 33.3(L) 34.0 - 45.0 % LAB HEMATOLOGY METHOD 07/10/2025 12:22 AM EDT [facility] Platelet Count 309 155 - 369 10*3/uL LAB HEMATOLOGY METHOD 07/10/2025 12:22 AM EDT [facility] MCV 87 79 - 98 fL LAB HEMATOLOGY METHOD 07/10/2025 12:22 AM EDT [facility] MCH 27.7 26.0 - 32.0 pg LAB HEMATOLOGY METHOD 07/10/2025 12:22 AM EDT [facility] MCHC 31.8 30.7 - 35.5 g/dL LAB HEMATOLOGY METHOD 07/10/2025 12:22 AM EDT [facility] RDW 17.9(H) 11.5 - 14.5 % LAB HEMATOLOGY METHOD 07/10/2025 12:22 AM EDT [facility] MPV 10.3 8.8 - 12.5 fL LAB HEMATOLOGY METHOD 07/10/2025 12:22 AM EDT [facility] nRBC 0.0 <=0.0 per 100 WBCs LAB HEMATOLOGY METHOD 07/10/2025 12:22 AM EDT [facility] Blood Arterial blood specimen / Unknown Venipuncture / Unknown 07/10/2025 12:03 AM EDT 07/10/2025 12:11 AM EDT us Luanne Crawford MD LAB BLOOD ORDERABLES Final Result [facility] [address] [place] [address] * (ABNORMAL) POCT glucose meter (07/10/2025 12:02 [...] Comment 07/10/2025 12:04 AM EDT [facility]ALTHCARE [facility] Wastewater Supervisor ID Cheyanne Briceño 07/10/2025 12:04 AM EDT HEALTHCARE LAB Device ID [id number] 07/10/2025 12:04 AM EDT [facility]ALTH[facility]ARE [facility] Specimen Type POC Arterial 07/10/2025 12:04 AM EDT [facility] Blood Arterial blood specimen / Unknown 07/10/2025 12:02 AM EDT 07/10/2025 12:04 AM EDT us Luanne Crawford MD LAB POINT OF CARE TEST DOCKED DEVICE UNSOLICITED RESULTS Final Result Performing Organization Address City/[facility]/ZIP Co de Phone Number HEALTHCARE LAB [address] [place] [address] * (ABNORMAL) POCT glucose meter (07/09/2025 10:01 PM EDT) [facility] POCT Glucose 183(H) 74 - [...] Comment 07/09/2025 10:04 PM EDT [facility]ARE [facility] Wastewater Supervisor ID Cheyanne Briceño 07/09/2025 10:04 PM EDT [facility] Device ID [id number] 07/09/2025 10:04 PM EDT [facility] Specimen Type POC Arterial 07/09/2025 10:04 PM EDT [facility] Blood Arterial blood specimen / Unknown 07/09/2025 10:01 PM EDT 07/09/2025 10:04 PM EDT Luanne Crawford MD LAB POINT OF CARE TEST DOCKED DEVICE UNSOLICITED RESULTS Final Result Performing Organization Address City/[facility] Co de Phone Number [facility]ARE [facility] [address] [place] [address] * (ABNORMAL) POCT glucose meter (07/09/2025 8:09 PM EDT) [facility] POCT Glucose 188(H) 74 - [...] Comment 07/09/2025 8:11 PM EDT [facility]ALTH[facility]ARE [facility] Wastewater Supervisor ID Cheyanne Briceño 07/09/2025 8:11 PM EDT HEALTH[facility]ARE LAB Device ID [id number] 07/09/2025 8:11 PM EDT [facility]ALTH[facility]ARE [facility] Specimen Type POC Capillary 07/09/2025 8:11 PM EDT [facility] Blood Capillary blood specimen / Unknown 07/09/2025 8:09 PM EDT 07/09/2025 8:11 PM EDT Luanne Crawford MD LAB POINT OF CARE TEST DOCKED DEVICE UNSOLICITED RESULTS Final Result Performing Organization Address City/[facility] Co de Phone Number [facility]ARE [facility] [address] [place] [address] * (ABNORMAL) POCT glucose meter (07/09/2025 6:22 PM EDT) [facility] POCT Glucose 151(H) 74 - [...] Comment 07/09/2025 6:24 PM EDT [facility]ALTHCARE [facility] Wastewater Supervisor ID Jeana Bear 07/09/2025 6:24 PM EDT HEALTH[facility]ARE LAB Device ID [id number] 07/09/2025 6:24 PM EDT [facility] Specimen Type POC Capillary 07/09/2025 6:24 PM EDT [facility] Blood Capillary blood specimen / Unknown 07/09/2025 6:22 PM EDT 07/09/2025 6:24 PM EDT Luanne Crawford MD LAB POINT OF CARE TEST DOCKED DEVICE UNSOLICITED RESULTS Final Result Performing Organization Address City/[facility]/ZIP Co de Phone Number [facility] [address] [place] [address] * (ABNORMAL) POCT glucose meter (07/09/2025 4:06 PM EDT) [facility] POCT Glucose 144(H) 74 - [...] Comment 07/09/2025 4:07 PM EDT [facility]ALTH[facility]ARE [facility] Wastewater Supervisor ID Jeana Bear 07/09/2025 4:07 PM EDT HEALTHCARE LAB Device ID [id number] 07/09/2025 4:07 PM EDT [facility] Specimen Type POC Capillary 07/09/2025 4:07 PM EDT [facility] Blood Capillary blood specimen / Unknown 07/09/2025 4:06 PM EDT 07/09/2025 4:07 PM EDT us Luanne Crawford MD LAB POINT OF CARE TEST DOCKED DEVICE UNSOLICITED RESULTS Final Result [facility] [address] [place] [address] * (ABNORMAL) Blood gas, arterial (07/09/2025 3:16 PM EDT) [facility] pH, Arterial 7.31(L) 7.35 - 7.45 LAB HEMATOLOGY METHOD 07/09/2025 3:40 PM EDT [facility] pCO2, Arterial 53(H) 35 - 48 mmHg LAB HEMATOLOGY METHOD 07/09/2025 3:40 PM EDT [facility] pO2, Arterial 153(H) 83 - 108 mmHg LAB HEMATOLOGY METHOD 07/09/2025 3:40 PM EDT [facility] SO2, Measured, Arterial 100(H) 94 - 98 % LAB HEMATOLOGY METHOD 07/09/2025 3:40 PM EDT [facility] Base Excess, Arterial -0.4 -2.0 - 3.0 mmol/L LAB HEMATOLOGY METHOD 07/09/2025 3:40 PM EDT [facility] Bicarbonate, Calculated, Arterial 26 22 - 26 mmol/L LAB HEMATOLOGY METHOD 07/09/2025 3:40 PM EDT [facility] Hematocrit, Whole Blood 30.6(L) 34.0 - 45.0 % LAB HEMATOLOGY METHOD 07/09/2025 3:40 PM EDT [facility] Sodium, Whole Blood 141 136 - 145 mmol/L LAB HEMATOLOGY METHOD 07/09/2025 3:40 PM EDT [facility] Potassium, Whole Blood 3.4(L) 3.6 - 4.9 mmol/L LAB HEMATOLOGY METHOD 07/09/2025 3:40 PM EDT [facility] Chloride, Whole Blood 107 97 - 107 mmol/L LAB HEMATOLOGY METHOD 07/09/2025 3:40 PM EDT [facility] Glucose, Whole Blood 141(H) 74 - 99 mg/dL LAB HEMATOLOGY METHOD 07/09/2025 3:40 PM EDT [facility] Ionized Calcium, Whole Blood 4.9 4.6 - 5.1 mg/dL LAB HEMATOLOGY METHOD 07/09/2025 3:40 PM EDT [facility] Lactate, Arterial, Whole Blood 0.9 0.5 - 1.6 mmol/L LAB HEMATOLOGY METHOD 07/09/2025 3:40 PM EDT [facility] Blood Arterial blood specimen / Unknown Arterial Line / Unknown 07/09/2025 3:16 PM EDT 07/09/2025 3:38 PM EDT us Luanne Crawford MD LAB BLOOD ORDERABLES Final Result [facility] [address] [place] [address] * (ABNORMAL) POCT glucose meter (07/09/2025 3:01 [...] Comment 07/09/2025 3:03 PM EDT HEALTHCARE LAB Wastewater Supervisor ID Jeana Bear 07/09/2025 3:03 PM EDT [facility] Device ID [id number] 07/09/2025 3:03 PM EDT [facility] Specimen Type POC Capillary 07/09/2025 3:03 PM EDT [facility]ALTH[facility] Blood Capillary blood specimen / Unknown 07/09/2025 3:01 PM EDT 07/09/2025 3:03 PM EDT us Luanne Crawford MD LAB POINT OF CARE TEST DOCKED DEVICE UNSOLICITED RESULTS Final Result Performing Organization Address [facility] Co de Phone Number [facility] [address] [place] [address] * (ABNORMAL) POCT glucose meter (07/09/2025 1:57 [...] Comment 07/09/2025 1:59 PM EDT HEALTHCARE LAB Wastewater Supervisor ID Jeana Bear 07/09/2025 1:59 PM EDT HEALTHCARE LAB Device ID [id number] 07/09/2025 1:59 PM EDT [facility] Specimen Type POC Capillary 07/09/2025 1:59 PM EDT [facility] Blood Capillary blood specimen / Unknown 07/09/2025 1:57 PM EDT 07/09/2025 1:59 PM EDT us Luanne Crawford MD LAB POINT OF CARE TEST DOCKED DEVICE UNSOLICITED RESULTS Final Result Performing Organization Address City/[facility]/ZIP Co de Phone Number [facility]ARE [facility] [address] [place] [address] * Phosphorus (07/09/2025 1:21 PM EDT) Phosphorus, Plasma 4.2 2.5 - 4.5 mg/dL 07/09/2025 2:49 PM EDT [facility] Blood Arterial blood specimen / Unknown Arterial Line / Unknown 07/09/2025 1:21 PM EDT 07/09/2025 2:01 PM EDT Luanne Crawford MD LAB BLOOD ORDERABLES Final Result Performing Organization Address [facility]/ZIP Co de Phone Number [facility] [address] [place] [address] * Magnesium (07/09/2025 1:21 PM EDT) Magnesium, Plasma 2.3 1.9 - 2.4 mg/dL 07/09/2025 2:49 PM EDT [facility] Blood Arterial blood specimen / Unknown Arterial Line / Unknown 07/09/2025 1:21 PM EDT 07/09/2025 2:01 PM EDT Luanne Crawford MD LAB BLOOD ORDERABLES Final Result Performing Organization Address [facility]/ZIP Co de Phone Number [facility] [address] [place] [address] * (ABNORMAL) Basic metabolic panel (07/09/2025 1:21 PM EDT) Glucose, Plasma 100(H) 74 - 99 mg/dL 07/09/2025 2:49 PM EDT [facility] BUN, Plasma 26(H) 7 - 21 mg/dL 07/09/2025 2:49 PM EDT [facility] Creatinine, Plasma 1.42(H) 0.60 - 1.10 mg/dL 07/09/2025 2:49 PM EDT [facility] BUN/Creatinine Ratio 18 07/09/2025 2:49 PM EDT [facility] Sodium, Plasma 140 136 - 145 mmol/L 07/09/2025 2:49 PM EDT [facility] Potassium, Plasma 3.7 3.6 - 4.9 mmol/L 07/09/2025 2:49 PM EDT [facility] Chloride, Plasma 104 97 - 107 mmol/L 07/09/2025 2:49 PM EDT [facility] CO2, Plasma 24 22 - 29 mmol/L 07/09/2025 2:49 PM EDT [facility] Anion Gap 12 6 - 16 mmol/L 07/09/2025 2:49 PM EDT [facility] Total Calcium, Plasma 9.1 8.9 - 10.2 mg/dL 07/09/2025 2:49 PM EDT [facility] eGFRcr 45.4 mL/min/1.7 3m*2 07/09/2025 2:49 PM EDT [facility] Comment:Reported eGFRcr in m L/min/1.73m2 is based the CKD-EPI 2020 equation that does not use a race coefficient. Blood Arterial blood specimen / Unknown Arterial Line / Unknown 07/09/2025 1:21 PM EDT 07/09/2025 2:01 PM EDT us Luanne Crawford MD LAB BLOOD ORDERABLES Final Result [facility] [address] [place] [address] * (ABNORMAL) POCT glucose meter (07/09/2025 1:20 PM EDT) [facility] POCT Glucose 103(H) 74 - [...] 07/09/2025 1:22 PM EDT [facility] Wastewater Supervisor ID Jeana Bear 07/09/2025 1:22 PM EDT [facility] Device ID [id number] 07/09/2025 1:22 PM EDT [facility] Specimen Type POC Arterial 07/09/2025 1:22 PM EDT [facility]ALTH[facility] Blood Arterial blood specimen / Unknown 07/09/2025 1:20 PM EDT 07/09/2025 1:22 PM EDT Luanne Crawford MD LAB POINT OF CARE TEST DOCKED DEVICE UNSOLICITED RESULTS Final Result Performing Organization Address [facility] Co de Phone Number [facility]ARE [facility] [address] [place] [address] * (ABNORMAL) POCT glucose meter (07/09/2025 12:44 PM EDT) [facility] POCT Glucose 110(H) 74 - 99 mg/dL [...] Comment 07/09/2025 12:45 PM EDT [facility]ALTH[facility] LAB Wastewater Supervisor ID Jeana Bear 07/09/2025 12:45 PM EDT HEALTHCARE LAB Device ID [id number] 07/09/2025 12:45 PM EDT [facility] Specimen Type POC Capillary 07/09/2025 12:45 PM EDT [facility] Blood Capillary blood specimen / Unknown 07/09/2025 12:44 PM EDT 07/09/2025 12:45 PM EDT Luanne Crawford MD LAB POINT OF CARE TEST DOCKED DEVICE UNSOLICITED RESULTS Final Result Performing Organization Address City/[facility]/ZIP Co de Phone Number [facility] [address] [place] [address] * (ABNORMAL) POCT glucose meter (07/09/2025 12:19 PM EDT) [facility]ologist [facility] POCT Glucose 62(L) 74 - 99 mg/dL [...] Comment 07/09/2025 12:21 PM EDT [facility]ALTHCARE LAB Wastewater Supervisor ID Jeana Bear 07/09/2025 12:21 PM EDT HEALTHCARE LAB Device ID [id number] 07/09/2025 12:21 PM EDT [facility]ALTH[facility]ARE LAB Specimen Type POC Capillary 07/09/2025 12:21 PM EDT [facility] Blood Capillary blood specimen / Unknown 07/09/2025 12:19 PM EDT 07/09/2025 12:21 PM EDT us Luanne Crawford MD LAB POINT OF CARE TEST DOCKED DEVICE UNSOLICITED RESULTS Final Result Performing Organization Address City/[facility] Co de Phone Number [facility] [address] [place] [address] * Blood Culture (Aerobic/Anaerobet Set) (07/09/2025 10:35 AM EDT) Culture No growth at day 5 KAROLINA 07/14/2025 12:02 PM EDT [facility] Blood Structure of antecubital vein / Unknown Venipuncture / Unknown 07/09/2025 10:35 AM EDT 07/09/2025 10:50 AM EDT us My Charles MD LAB MICROBIOLOGY - GENE RAL ORDERABLES Final Result [facility] [address] [place] [address] * Blood Culture (Aerobic/Anaerobet Set) (07/09/2025 10:35 AM EDT) Culture No growth at day 5 KAROLINA 07/14/2025 12:02 PM EDT [facility] Blood Structure of antecubital vein / Unknown Venipuncture / Unknown 07/09/2025 10:35 AM EDT 07/09/2025 10:50 AM EDT us My Charles MD LAB MICROBIOLOGY - GENE RAL ORDERABLES Final Result [facility] [address] [place] [address] * (ABNORMAL) POCT glucose meter (07/09/2025 10:04 AM EDT) [facility]ologist [facility] POCT Glucose 114(H) 74 - 99 mg/dL [...] for testing. Comment 07/09/2025 10:05 AM EDT [facility] Wastewater Supervisor ID Jeana Bear 07/09/2025 10:05 AM EDT [facility] Device ID [id number] 07/09/2025 10:05 AM EDT [facility] Specimen Type POC Capillary 07/09/2025 10:05 AM EDT [facility] Blood Capillary blood specimen / Unknown 07/09/2025 10:04 AM EDT 07/09/2025 10:05 AM EDT us Luanne Crawford MD LAB POINT OF CARE TEST DOCKED DEVICE UNSOLICITED RESULTS Final Result Performing Organization Address City/[facility]/ZIP Co de Phone Number [facility] [address] [place] [address] * Multi Drug Resistance Test (07/09/2025 9:46 AM EDT) [facility] Culture No growth at day 1 07/10/2025 11:58 AM EDT [facility] Swab (Nares and Leann Rectal) Non-blood Collection / Unknown 07/09/2025 9:46 AM EDT 07/09/2025 10:09 AM EDT Narrative [facility] - 07/10/2025 11:58 AM EDT This test was developed and its performance characteristics determined by the [facility]. Although the media is FDA-approved, it is not FDA-approved for all specimen types submitted. The FDA has determined that such clearance or approval is not necessary. This test is used for surveillance purposes. It should not be regarded as investigational or for research. The [facility] is certified under the Clinical Laboratory Improvement Amendments of 1988 (CLIA-88) as qualified to perform high complexity clinical laboratory testing. us Luanne Crawford MD LAB MICROBIOLOGY - GENERAL ORDERABLES Final Result [facility] [address] [place] [address] * (ABNORMAL) Blood gas, arterial (07/09/2025 8:47 AM EDT) pH, Arterial 7.30(L) 7.35 - 7.45 LAB HEMATOLOGY METHOD 07/09/2025 8:55 AM EDT [facility] pCO2, Arterial 53(H) 35 - 48 mmHg LAB HEMATOLOGY METHOD 07/09/2025 8:55 AM EDT [facility] pO2, Arterial 173(H) 83 - 108 mmHg LAB HEMATOLOGY METHOD 07/09/2025 8:55 AM EDT [facility] SO2, Measured, Arterial 98 94 - 98 % LAB HEMATOLOGY METHOD 07/09/2025 8:55 AM EDT [facility] Base Excess, Arterial -0.8 -2.0 - 3.0 mmol/L LAB HEMATOLOGY METHOD 07/09/2025 8:55 AM EDT [facility] Bicarbonate, Calculated, Arterial 26 22 - 26 mmol/L LAB HEMATOLOGY METHOD 07/09/2025 8:55 AM EDT [facility] Hematocrit, Whole Blood 27.3(L) 34.0 - 45.0 % LAB HEMATOLOGY METHOD 07/09/2025 8:55 AM EDT [facility] Sodium, Whole Blood 140 136 - 145 mmol/L LAB HEMATOLOGY METHOD 07/09/2025 8:55 AM EDT [facility] Potassium, Whole Blood 2.9(L) 3.6 - 4.9 mmol/L LAB HEMATOLOGY METHOD 07/09/2025 8:55 AM EDT [facility] Chloride, Whole Blood 106 97 - 107 mmol/L LAB HEMATOLOGY METHOD 07/09/2025 8:55 AM EDT [facility] Glucose, Whole Blood 155(H) 74 - 99 mg/dL LAB HEMATOLOGY METHOD 07/09/2025 8:55 AM EDT [facility] Ionized Calcium, Whole Blood 5.0 4.6 - 5.1 mg/dL LAB HEMATOLOGY METHOD 07/09/2025 8:55 AM EDT [facility] Lactate, Arterial, Whole Blood 1.4 0.5 - 1.6 mmol/L LAB HEMATOLOGY METHOD 07/09/2025 8:55 AM EDT [facility] Blood Arterial blood specimen / Unknown Arterial Line / Unknown 07/09/2025 8:47 AM EDT 07/09/2025 8:54 AM EDT us Dorcas Hennessy MD LAB BLOOD ORDERABLES Final Resul t [facility] [address] [place] [address] * (ABNORMAL) POCT glucose meter (07/09/2025 8:01 [...] Comment 07/09/2025 8:03 AM EDT [facility] Wastewater Supervisor ID Jeana Bear 07/09/2025 8:03 AM EDT [facility] Device ID [id number] 07/09/2025 8:03 AM EDT [facility] Specimen Type POC Capillary 07/09/2025 8:03 AM EDT [facility] Blood Capillary blood specimen / Unknown 07/09/2025 8:01 AM EDT 07/09/2025 8:03 AM EDT us Luanne Crawford MD LAB POINT OF CARE TEST DOCKED DEVICE UNSOLICITED RESULTS Final Result [facility] [address] [place] [address] * [place] CRITICAL CARE, E/M 30-74 MINUTES (07/09/2025 7:15 [...] - 99 mg/dL 07/09/2025 6:20 AM EDT [facility] Comment:Accuracy of a glucos e result [...] for testing. Comment 07/09/2025 6:20 AM EDT [facility] Wastewater Supervisor ID Chyeanne Briceño 07/09/2025 6:20 AM EDT [facility] Device ID [id number] 07/09/2025 6:20 AM EDT [facility] Specimen Type POC Arterial 07/09/2025 6:20 AM EDT [facility] Blood Arterial blood specimen / Unknown 07/09/2025 6:05 AM EDT 07/09/2025 6:20 AM EDT Luanne Crawford MD LAB POINT OF CARE TEST DOCKED DEVICE UNSOLICITED RESULTS Final Result Performing Organization Address City/[facility] de Phone Number [facility] [address] [place] [address] * (ABNORMAL) Hemoglobin A1c (07/09/2025 4:57 AM EDT) Hemoglobin A1c 7.5(H) <5.7 % 07/09/2025 12:09 PM EDT [facility] Blood Arterial blood specimen / Unknown Venipuncture / Unknown 07/09/2025 4:57 AM EDT 07/09/2025 5:07 AM EDT Narrative [facility] - 07/09/2025 12:09 PM EDT HA1C Interpretive Data: Diagnosis of Diabetes: Diabetic > or = 6.5% Pre-diabetic 5.7 to 6.4% Non-diabetic < or = 5.6% Glycemic Targets for Type I and Type II Diabetics: Non- Adults <7.0% Adults <6.0% Children and Adolescents <7.5% Source: [place] [employer]. Standards of medical care in diabetes,2017. Diabetes Care.2017:40 (suppl 1):S1-S135. Dorcas Hennessy MD LAB BLOOD ORDERABLES Final Resul t [facility] [address] [place] [address] * Phosphorus (07/09/2025 4:57 AM EDT) Phosphorus, Plasma 4.1 2.5 - 4.5 mg/dL 07/09/2025 5:35 AM EDT [facility] Blood Arterial blood specimen / Unknown Venipuncture / Unknown 07/09/2025 4:57 AM EDT 07/09/2025 5:06 AM EDT Luanne Crawford MD LAB BLOOD ORDERABLES Final Result [facility] [address] [place] [address] * Magnesium, Plasma (07/09/2025 4:57 AM EDT) Pathologist [facility] Magnesium, Plasma 2.2 1.9 - 2.4 mg/dL 07/09/2025 5:35 AM EDT [facility] Blood Arterial blood specimen / Unknown Venipuncture / Unknown 07/09/2025 4:57 AM EDT 07/09/2025 5:06 AM EDT Luanne Crawford MD LAB BLOOD ORDERABLES Final Result Performing Organization Address [facility]/ZIP Co de Phone Number [facility] [address] [place] [address] * (ABNORMAL) Basic Metabolic Panel, Plasma (07/09/2025 4:57 AM EDT) Pathologist [facility] Glucose, Plasma 235(H) 74 - 99 mg/dL 07/09/2025 5:35 AM EDT [facility] BUN, Plasma 30(H) 7 - 21 mg/dL 07/09/2025 5:35 AM EDT [facility] Creatinine, Plasma 1.58(H) 0.60 - 1.10 mg/dL 07/09/2025 5:35 AM EDT [facility] BUN/Creatinine Ratio 19 07/09/2025 5:35 AM EDT [facility] Sodium, Plasma 136 136 - 145 mmol/L 07/09/2025 5:35 AM EDT [facility] Potassium, Plasma 3.5(L) 3.6 - 4.9 mmol/L 07/09/2025 5:35 AM EDT [facility] Chloride, Plasma 101 97 - 107 mmol/L 07/09/2025 5:35 AM EDT [facility] CO2, Plasma 23 22 - 29 mmol/L 07/09/2025 5:35 AM EDT [facility] Anion Gap 12 6 - 16 mmol/L 07/09/2025 5:35 AM EDT [facility] Total Calcium, Plasma 9.2 8.9 - 10.2 mg/dL 07/09/2025 5:35 AM EDT [facility] eGFRcr 40.0 mL/min/1.7 3m*2 07/09/2025 5:35 AM EDT [facility] Comment:Reported eGFRcr in m L/min/1.73m2 is based the CKD-EPI 2020 equation that does not use a race coefficient. Blood Arterial blood specimen / Unknown Venipuncture / Unknown 07/09/2025 4:57 AM EDT 07/09/2025 5:06 AM EDT us Luanne Crawford MD LAB BLOOD ORDERABLES Final Result [facility] [address] [place] [address] * (ABNORMAL) CBC W/O Differential (07/09/2025 4:57 AM EDT) WBC Count 32.25(H) 3.70 - 10.30 10*3/uL LAB HEMATOLOGY METHOD 07/09/2025 5:15 AM EDT [facility] RBC Count 3.89(L) 3.90 - 5.20 10*6/uL LAB HEMATOLOGY METHOD 07/09/2025 5:15 AM EDT [facility] HGB 11.0(L) 11.2 - 15.7 g/dL LAB HEMATOLOGY METHOD 07/09/2025 5:15 AM EDT [facility] HCT 33.4(L) 34.0 - 45.0 % LAB HEMATOLOGY METHOD 07/09/2025 5:15 AM EDT [facility] Platelet Count 358 155 - 369 10*3/uL LAB HEMATOLOGY METHOD 07/09/2025 5:15 AM EDT [facility] MCV 86 79 - 98 fL LAB HEMATOLOGY METHOD 07/09/2025 5:15 AM EDT [facility] MCH 28.3 26.0 - 32.0 pg LAB HEMATOLOGY METHOD 07/09/2025 5:15 AM EDT [facility] MCHC 32.9 30.7 - 35.5 g/dL LAB HEMATOLOGY METHOD 07/09/2025 5:15 AM EDT [facility] RDW 17.4(H) 11.5 - 14.5 % LAB HEMATOLOGY METHOD 07/09/2025 5:15 AM EDT [facility] MPV 10.0 8.8 - 12.5 fL LAB HEMATOLOGY METHOD 07/09/2025 5:15 AM EDT [facility] nRBC 0.0 <=0.0 per 100 WBCs LAB HEMATOLOGY METHOD 07/09/2025 5:15 AM EDT [facility] Blood Arterial blood specimen / Unknown Venipuncture / Unknown 07/09/2025 4:57 AM EDT 07/09/2025 5:07 AM EDT us Luanne Crawford MD LAB BLOOD ORDERABLES Final Result Performing Organization Address City/[facility]/ZIP Co de Phone Number [facility] [address] [place] [address] * (ABNORMAL) POCT glucose meter (07/09/2025 4:03 AM EDT) [facility] POCT Glucose 232(H) 74 - [...] Comment 07/09/2025 4:05 AM EDT [facility] Wastewater Supervisor ID Cheyanne Briceño 07/09/2025 4:05 AM EDT [facility] Device ID [id number] 07/09/2025 4:05 AM EDT [facility] Specimen Type POC Arterial 07/09/2025 4:05 AM EDT [facility] Blood Arterial blood specimen / Unknown 07/09/2025 4:03 AM EDT 07/09/2025 4:05 AM EDT us Luanne Crawford MD LAB POINT OF CARE TEST DOCKED DEVICE UNSOLICITED RESULTS Final Result Performing Organization Address City/[facility]/ZIP Co de Phone Number [facility] [address] [place] [address] * XR Chest 1 View (07/09/2025 3:42 [...] glucose meter (07/09/2025 2:15 AM EDT) Pathologist [facility] POCT Glucose 272(H) 74 - 99 mg/dL [...] Comment 07/09/2025 2:17 AM EDT [facility] Wastewater Supervisor ID Cheyanne Briceño 07/09/2025 2:17 AM EDT [facility] Device ID [id number] 07/09/2025 2:17 AM EDT [facility] Specimen Type POC Arterial 07/09/2025 2:17 AM EDT [facility] Blood Arterial blood specimen / Unknown 07/09/2025 2:15 AM EDT 07/09/2025 2:17 AM EDT us Luanne Crawford MD LAB POINT OF CARE TEST DOCKED DEVICE UNSOLICITED RESULTS Final Result [facility] [address] [place], [place] [id number] * (ABNORMAL) Blood gas panel, arterial (07/09/2025 2:11 AM EDT) [facility] pH, Arterial 7.25(LL) 7.35 - 7.45 LAB HEMATOLOGY METHOD 07/09/2025 2:23 AM EDT [facility] pCO2, Arterial 56(H) 35 - 48 mmHg LAB HEMATOLOGY METHOD 07/09/2025 2:23 AM EDT [facility] pO2, Arterial 67(L) 83 - 108 mmHg LAB HEMATOLOGY METHOD 07/09/2025 2:23 AM EDT [facility] SO2, Measured, Arterial 91(L) 94 - 98 % LAB HEMATOLOGY METHOD 07/09/2025 2:23 AM EDT [facility] Base Excess, Arterial -2.7(L) -2.0 - 3.0 mmol/L LAB HEMATOLOGY METHOD 07/09/2025 2:23 AM EDT [facility] Bicarbonate, Calculated, Arterial 25 22 - 26 mmol/L LAB HEMATOLOGY METHOD 07/09/2025 2:23 AM EDT [facility] Hematocrit, Whole Blood 31.5(L) 34.0 - 45.0 % LAB HEMATOLOGY METHOD 07/09/2025 2:23 AM EDT [facility] Sodium, Whole Blood 135(L) 136 - 145 mmol/L LAB HEMATOLOGY METHOD 07/09/2025 2:23 AM EDT [facility] Potassium, Whole Blood 3.5(L) 3.6 - 4.9 mmol/L LAB HEMATOLOGY METHOD 07/09/2025 2:23 AM EDT [facility] Chloride, Whole Blood 103 97 - 107 mmol/L LAB HEMATOLOGY METHOD 07/09/2025 2:23 AM EDT [facility] Glucose, Whole Blood 279(H) 74 - 99 mg/dL LAB HEMATOLOGY METHOD 07/09/2025 2:23 AM EDT [facility] Ionized Calcium, Whole Blood 4.9 4.6 - 5.1 mg/dL LAB HEMATOLOGY METHOD 07/09/2025 2:23 AM EDT [facility] Lactate, Arterial, Whole Blood 1.2 0.5 - 1.6 mmol/L LAB HEMATOLOGY METHOD 07/09/2025 2:23 AM EDT [facility] Blood Arterial blood specimen / Unknown Arterial Puncture / Unknown 07/09/2025 2:11 AM EDT 07/09/2025 2:21 AM EDT us Luanne Crawford MD LAB BLOOD ORDERABLES Final Result [facility] [address] [place] [address] * (ABNORMAL) POCT glucose meter (07/09/2025 1:22 AM EDT) POCT Glucose 271(H) 74 - 99 mg/dL 07/09/2025 1:24 AM EDT [facility] Comment:Accuracy of a glucos [...] Comment 07/09/2025 1:24 AM EDT [facility] Wastewater Supervisor ID Cheyanne Briceño 07/09/2025 1:24 AM EDT [facility] Device ID [id number] 07/09/2025 1:24 AM EDT [facility] Specimen Type POC Arterial 07/09/2025 1:24 AM EDT [facility] Blood Arterial blood specimen / Unknown 07/09/2025 1:22 AM EDT 07/09/2025 1:24 AM EDT us Luanne Crawford MD LAB POINT OF CARE TEST DOCKED DEVICE UNSOLICITED RESULTS Final Result Performing Organization Address [facility] Co de Phone Number [facility] [address] [place] [address] * (ABNORMAL) POCT glucose meter (07/09/2025 12:06 [...] Comment 07/09/2025 12:08 AM EDT [facility] Wastewater Supervisor ID Cheyanne Briceño 07/09/2025 12:08 AM EDT [facility] Device ID [id number] 07/09/2025 12:08 AM EDT [facility] Specimen Type POC Arterial 07/09/2025 12:08 AM EDT [facility] Blood Arterial blood specimen / Unknown 07/09/2025 12:06 AM EDT 07/09/2025 12:08 AM EDT us Luanne Crawford MD LAB POINT OF CARE TEST DOCKED DEVICE UNSOLICITED RESULTS Final Result Performing Organization Address City/[facility]/ZIP Co de Phone Number [facility] [address] [place] [address] * APTT (07/08/2025 11:53 PM EDT) aPTT 25 25 - 35 sec LAB COAGULATION METHOD 07/09/2025 12:32 AM EDT [facility] Blood Venous blood specimen / Unknown Venipuncture / Unknown 07/08/2025 11:53 PM EDT 07/08/2025 11:59 PM EDT Luanne Crawford MD LAB BLOOD ORDERABLES Final Result Performing Organization Address [facility] Co de Phone Number [facility] [address] [place] [address] * (ABNORMAL) Protime-INR (07/08/2025 11:53 PM EDT) Prothrombin Time 15.2(H) 12.0 - 14.3 sec LAB COAGULATION METHOD 07/09/2025 12:32 AM EDT [facility] INR 1.2(H) 0.9 - 1.1 LAB COAGULATION METHOD 07/09/2025 12:32 AM EDT [facility] Blood Venous blood specimen / Unknown Venipuncture / Unknown 07/08/2025 11:53 PM EDT 07/08/2025 11:59 PM EDT Narrative [facility] - 07/09/2025 12:32 AM [...] recurrent LA INR 2.5 to 3.5 us Luanne Crawford MD LAB BLOOD ORDERABLES Final Result Performing Organization Address [facility] Co de Phone Number [facility] [address] [place] [address] * Phosphorus, Plasma (07/08/2025 11:52 PM EDT) Phosphorus, Plasma 3.6 2.5 - 4.5 mg/dL 07/09/2025 12:27 AM EDT [facility] Blood Venous blood specimen / Unknown Venipuncture / Unknown 07/08/2025 11:52 PM EDT 07/08/2025 11:59 PM EDT Luanne Crawford MD LAB BLOOD ORDERABLES Final Result Performing Organization Address [facility]/ZIP Co de Phone Number [facility] [address] [place] [address] * (ABNORMAL) Magnesium, Plasma (07/08/2025 11:52 PM EDT) Magnesium, Plasma 1.8(L) 1.9 - 2.4 mg/dL 07/09/2025 12:27 AM EDT [facility] Blood Venous blood specimen / Unknown Venipuncture / Unknown 07/08/2025 11:52 PM EDT 07/08/2025 11:59 PM EDT Luanne Crawford MD LAB BLOOD ORDERABLES Final Result Performing Organization Address [facility]/ZIP Co de Phone Number [facility] [address] [place] [address] * (ABNORMAL) Basic Metabolic Panel, Plasma (07/08/2025 11:52 PM EDT) Glucose, Plasma 314(H) 74 - 99 mg/dL 07/09/2025 12:27 AM EDT [facility] BUN, Plasma 32(H) 7 - 21 mg/dL 07/09/2025 12:27 AM EDT [facility] Creatinine, Plasma 1.80(H) 0.60 - 1.10 mg/dL 07/09/2025 12:27 AM EDT [facility] BUN/Creatinine Ratio 18 07/09/2025 12:27 AM EDT [facility] Sodium, Plasma 136 136 - 145 mmol/L 07/09/2025 12:27 AM EDT [facility] Potassium, Plasma 3.6 3.6 - 4.9 mmol/L 07/09/2025 12:27 AM EDT [facility] Chloride, Plasma 100 97 - 107 mmol/L 07/09/2025 12:27 AM EDT [facility] CO2, Plasma 23 22 - 29 mmol/L 07/09/2025 12:27 AM EDT [facility] Anion Gap 13 6 - 16 mmol/L 07/09/2025 12:27 AM EDT [facility] Total Calcium, Plasma 8.9 8.9 - 10.2 mg/dL 07/09/2025 12:27 AM EDT [facility] eGFRcr 34.2 mL/min/1.7 3m*2 07/09/2025 12:27 AM EDT [facility] Comment:Reported eGFRcr in m L/min/1.73m2 is based the CKD-EPI 2020 equation that does not use a race coefficient. Blood Venous blood specimen / Unknown Venipuncture / Unknown 07/08/2025 11:52 PM EDT 07/08/2025 11:59 PM EDT us Luanne Crawford MD LAB BLOOD ORDERABLES Final Result [facility] [address] [place] [address] * (ABNORMAL) CBC W/O Differential (07/08/2025 11:52 PM EDT) WBC Count 22.50(H) 3.70 - 10.30 10*3/uL LAB HEMATOLOGY METHOD 07/09/2025 12:16 AM EDT [facility] RBC Count 3.60(L) 3.90 - 5.20 10*6/uL LAB HEMATOLOGY METHOD 07/09/2025 12:16 AM EDT [facility] HGB 10.0(L) 11.2 - 15.7 g/dL LAB HEMATOLOGY METHOD 07/09/2025 12:16 AM EDT [facility] HCT 30.8(L) 34.0 - 45.0 % LAB HEMATOLOGY METHOD 07/09/2025 12:16 AM EDT [facility] Platelet Count 273 155 - 369 10*3/uL LAB HEMATOLOGY METHOD 07/09/2025 12:16 AM EDT [facility] MCV 86 79 - 98 fL LAB HEMATOLOGY METHOD 07/09/2025 12:16 AM EDT [facility] MCH 27.8 26.0 - 32.0 pg LAB HEMATOLOGY METHOD 07/09/2025 12:16 AM EDT [facility] MCHC 32.5 30.7 - 35.5 g/dL LAB HEMATOLOGY METHOD 07/09/2025 12:16 AM EDT [facility] RDW 16.9(H) 11.5 - 14.5 % LAB HEMATOLOGY METHOD 07/09/2025 12:16 AM EDT [facility] MPV 10.3 8.8 - 12.5 fL LAB HEMATOLOGY METHOD 07/09/2025 12:16 AM EDT [facility] nRBC 0.0 <=0.0 per 100 WBCs LAB HEMATOLOGY METHOD 07/09/2025 12:16 AM EDT [facility] Blood Venous blood specimen / Unknown Venipuncture / Unknown 07/08/2025 11:52 PM EDT 07/08/2025 11:59 PM EDT us Luanne Crawford MD LAB BLOOD ORDERABLES Final Result [facility] [address] [place] [address] * Richie auris Surveillance by PCR (07/08/2025 11:50 PM EDT) Richie auris PCR Result Not Detected Not Detected 07/09/2025 11:26 AM EDT [facility] Swab (Axilla and Groin) Non-blood Collection / Unknown 07/08/2025 11:50 PM EDT 07/09/2025 12:17 AM EDT Narrative [facility] - 07/09/2025 11:26 AM EDT This PCR assay was developed and its performance characteristics determined by [facility] as appropriate for clinical purposes. This assay has not been cleared or approved by the FDA, but is performed in a CLIA regulated laboratory that is qualified to perform high-complexity testing. Luanne Crawford MD LAB MICROBIOLOGY - GENERAL ORDERABLES Final Result Performing Organization Address City/[facility]/ZIP Co de Phone Number [facility] [address] [place] [address] * Multi Drug Resistance Test (07/08/2025 11:50 PM EDT) Culture No growth at day 1 07/10/2025 5:45 AM EDT [facility] Swab (Nares and Leann Rectal) Non-blood Collection / Unknown 07/08/2025 11:50 PM EDT 07/09/2025 12:17 AM EDT Narrative [facility] - 07/10/2025 5:45 AM EDT This test was developed and its performance characteristics determined by the [facility]. Although the media is FDA-approved, it is not FDA-approved for all specimen types submitted. The FDA has determined that such clearance or approval is not necessary. This test is used for surveillance purposes. It should not be regarded as investigational or for research. The [facility] is certified under the Clinical Laboratory Improvement Amendments of 1988 (CLIA-88) as qualified to perform high complexity clinical laboratory testing. us Luanne Crawford MD LAB MICROBIOLOGY - GENERAL ORDERABLES Final Result [facility] [address] [place] [address] * (ABNORMAL) Blood gas, arterial (07/08/2025 11:50 PM EDT) pH, Arterial 7.27(L) 7.35 - 7.45 LAB HEMATOLOGY METHOD 07/09/2025 12:00 AM EDT [facility] pCO2, Arterial 53(H) 35 - 48 mmHg LAB HEMATOLOGY METHOD 07/09/2025 12:00 AM EDT [facility] pO2, Arterial 114(H) 83 - 108 mmHg LAB HEMATOLOGY METHOD 07/09/2025 12:00 AM EDT [facility] SO2, Measured, Arterial 99(H) 94 - 98 % LAB HEMATOLOGY METHOD 07/09/2025 12:00 AM EDT [facility] Base Excess, Arterial -3.1(L) -2.0 - 3.0 mmol/L LAB HEMATOLOGY METHOD 07/09/2025 12:00 AM EDT [facility] Bicarbonate, Calculated, Arterial 24 22 - 26 mmol/L LAB HEMATOLOGY METHOD 07/09/2025 12:00 AM EDT [facility] Hematocrit, Whole Blood 31.0(L) 34.0 - 45.0 % LAB HEMATOLOGY METHOD 07/09/2025 12:00 AM EDT [facility] Sodium, Whole Blood 134(L) 136 - 145 mmol/L LAB HEMATOLOGY METHOD 07/09/2025 12:00 AM EDT [facility] Potassium, Whole Blood 3.5(L) 3.6 - 4.9 mmol/L LAB HEMATOLOGY METHOD 07/09/2025 12:00 AM EDT [facility] Chloride, Whole Blood 101 97 - 107 mmol/L LAB HEMATOLOGY METHOD 07/09/2025 12:00 AM EDT [facility] Glucose, Whole Blood 315(H) 74 - 99 mg/dL LAB HEMATOLOGY METHOD 07/09/2025 12:00 AM EDT [facility] Ionized Calcium, Whole Blood 5.1 4.6 - 5.1 mg/dL LAB HEMATOLOGY METHOD 07/09/2025 12:00 AM EDT [facility] Lactate, Arterial, Whole Blood 1.7(H) 0.5 - 1.6 mmol/L LAB HEMATOLOGY METHOD 07/09/2025 12:00 AM EDT [facility] Blood Arterial blood specimen / Unknown Arterial Puncture / Unknown 07/08/2025 11:50 PM EDT 07/08/2025 11:59 PM EDT us Richard Betts CRNA LAB BLOOD ORDERABLES Sarha bennett Result [facility] [address] [place] [address] * (ABNORMAL) POCT glucose meter (07/08/2025 11:49 PM EDT) POCT Glucose 316(H) 74 - 99 mg/dL 07/08/2025 11:50 PM EDT [facility] Comment:Accuracy of a glucos [...] Comment 07/08/2025 11:50 PM EDT [facility] Wastewater Supervisor ID Mary Cotto 07/08/2025 11:50 PM EDT [facility] Device ID [id number] 07/08/2025 11:50 PM EDT [facility] Specimen Type POC Arterial 07/08/2025 11:50 PM EDT [facility] Blood Arterial blood specimen / Unknown 07/08/2025 11:49 PM EDT 07/08/2025 11:50 PM EDT us Luanne Crawford MD LAB POINT OF CARE TEST DOCKED DEVICE UNSOLICITED RESULTS Final Result [facility] [address] [place] [address] * (ABNORMAL) Tissue Culture and Gram Stain (07/08/2025 10:48 PM EDT) Culture Light Growth 07/13/2025 1:13 PM EDT [facility] Culture 1+ Schaalia turicensis (formerly known as Actinomyces turicensis)(A) 07/13/2025 1:13 PM EDT [facility] Comment: The organism value for this result has been updated. These results have been appended to the previously preliminary verified report. This is a corrected result. Previous organism was Gram positive anthony on 07/11/2025 at 1052 EDT. Culture 1+ Staphylococcus hominis(A) 07/13/2025 1:13 PM EDT [facility] Comment: This isolate has been identified using the FDA Approved [employer] System The organism value for this result has been updated. These results have been appended to the previously preliminary verified report. Gram Stain Result Few Polymorphonuclear leukocytes(A) 07/13/2025 1:13 PM EDT [facility] Gram Stain Result Numerous Gram negative rods(A) 07/13/2025 1:13 PM EDT [facility] Gram Stain Result Few Gram positive cocci in pairs(A) 07/13/2025 1:13 PM EDT [facility] Tissue Topography unknown / Unknown 07/08/2025 10:48 PM EDT 07/09/2025 12:14 AM EDT Comment:Pre-op diagnosis: Necrotizing fasciitis (CMS/HCC) [M72.6] Luanne Crawford MD LAB MICROBIOLOGY - GENERAL ORDERABLES Final Result [facility] [address] [place] [address] * Transfuse fresh frozen plasma (07/08/2025 10:35 PM EDT) Richard Betts SUPERVISOR [employer] BLOOD TRANSFUSION ORDERAB LES Final Result * Transfuse RBC (07/08/2025 10:29 PM EDT) Richard Betts SUPERVISOR [employer] BLOOD TRANSFUSION ORDERAB LES Final Result * (ABNORMAL) Blood gas panel, arterial (07/08/2025 10:08 PM EDT) pH, Arterial 7.28(L) 7.35 - 7.45 LAB HEMATOLOGY METHOD 07/08/2025 10:15 PM EDT [facility] pCO2, Arterial 50(H) 35 - 48 mmHg LAB HEMATOLOGY METHOD 07/08/2025 10:15 PM EDT [facility] pO2, Arterial 121(H) 83 - 108 mmHg LAB HEMATOLOGY METHOD 07/08/2025 10:15 PM EDT [facility] SO2, Measured, Arterial 99(H) 94 - 98 % LAB HEMATOLOGY METHOD 07/08/2025 10:15 PM EDT [facility] Base Excess, Arterial -3.6(L) -2.0 - 3.0 mmol/L LAB HEMATOLOGY METHOD 07/08/2025 10:15 PM EDT [facility] Bicarbonate, Calculated, Arterial 23 22 - 26 mmol/L LAB HEMATOLOGY METHOD 07/08/2025 10:15 PM EDT [facility] Hematocrit, Whole Blood 29.9(L) 34.0 - 45.0 % LAB HEMATOLOGY METHOD 07/08/2025 10:15 PM EDT [facility] Sodium, Whole Blood 133(L) 136 - 145 mmol/L LAB HEMATOLOGY METHOD 07/08/2025 10:15 PM EDT [facility] Potassium, Whole Blood 3.5(L) 3.6 - 4.9 mmol/L LAB HEMATOLOGY METHOD 07/08/2025 10:15 PM EDT [facility] Chloride, Whole Blood 101 97 - 107 mmol/L LAB HEMATOLOGY METHOD 07/08/2025 10:15 PM EDT [facility] Glucose, Whole Blood 351(H) 74 - 99 mg/dL LAB HEMATOLOGY METHOD 07/08/2025 10:15 PM EDT [facility] Ionized Calcium, Whole Blood 4.5(L) 4.6 - 5.1 mg/dL LAB HEMATOLOGY METHOD 07/08/2025 10:15 PM EDT [facility] Lactate, Arterial, Whole Blood 2.1(H) 0.5 - 1.6 mmol/L LAB HEMATOLOGY METHOD 07/08/2025 10:15 PM EDT [facility] Blood Arterial blood specimen / Unknown 07/08/2025 10:08 PM EDT 07/08/2025 10:14 PM EDT Comment:Pre-op diagnosis: Necrotizing fasciitis (CMS/HCC) [M72.6] us Luanne Crawford MD LAB BLOOD ORDERABLES Final Result [facility] [address] [place] [address] * Surgical Pathology Exam (07/08/2025 10:07 PM EDT) Case Report Surgical Pathology Case: [id number] Authorizing Provider: Luanne Crawford MD Collected: 07/08/20255 Ordering Location: [facility] A OPERATING ROOM Received: 07/09/2025 0740 Pathologist: Boaz Fernandez MD Specimens: A) - Other (specify site), saphenous vein B) - Other (specify site), right leg 07/10/2025 3:45 PM EDT [facility] Final Diagnosis A. SAPHENOUS VEIN SEGMENT, REMOVAL: - SCLEROTIC VEIN WITH ADVENTITIAL INFLAMMATION. B. RIGHT LEG TISSUE DEBRIDEMENT: - ACUTE NECROTIZING FASCIITIS OF SKIN AND SOFT TISSUE. 07/10/2025 3:45 PM EDT [facility] at 1545 EDT Clinical Information Necrotizing fasciitis; post recent boil self popped wound. 50 y.o. female with PMH of DM, hidradenitis supparativa, current smoker (1.5 ppd), UTI, depression, anxiety, asthma, HLD, Celiac disease, 07/10/2025 3:45 PM EDT [facility] Gross Description A. SAPHENOUS VEIN Specimen is received fresh and placed in formalin labeled saphenous vein. Received is a segment of vessel that measures 8.5 cm in length and up to 0.7 cm in diameter. Specimen is sectioned to reveal a pinpoint lumen with dried blood. [employer] sections are taken and submitted in cassette A1. Cold Time: 8h 56m Abhishek Baptiste MD B. RIGHT LEG Specimen is received fresh labeled right leg. Received are numerous fragments of skin and underlying soft tissue that measure in aggregate 25.0 x 25.0 x 7.5 cm. Scattered areas of skin and soft tissue notable for being green-black, foul-smelling and extensively necrotic. [employer] sections are taken and submitted in cassettes B1-B2. Abhishek Baptiste MD 07/10/2025 3:45 PM EDT [facility] Note: A resident was involved in the service. I attest I examined the relevant preparations for the specimens and confirmed the diagnosis or interpretation. 07/10/2025 3:45 PM EDT [facility] Tissue Topography unknown / Unknown 07/08/2025 10:07 PM EDT 07/09/2025 7:40 AM EDT Comment:Pre-op diagnosis: Necrotizing fasciitis (CMS/HCC) [M72.6] Tissue specimen (specimen) Topography unknown / Unknown 07/08/2025 10:49 PM EDT 07/09/2025 7:40 AM EDT Comment:Pre-op diagnosis: Necrotizing fasciitis (CMS/HCC) [M72.6] us Luanne Crawford MD LAB PATHOLOGY ORDERABLES F inal Result [facility] [address] [place] [address] * Transfuse fresh frozen plasma (07/08/2025 10:04 PM EDT) us Richard Yeboahngsharyn SUPERVISOR [employer] BLOOD TRANSFUSION ORDERAB LES Final Result * Transfuse fresh frozen plasma: 1 Units (07/08/2025 10:04 PM EDT) Richard Yeboahngsharyn SUPER[employer] BLOOD TRANSFUSION ORDERAB LES Final Result * Transfuse RBC (07/08/2025 9:41 PM EDT) Richard Yeboahngkangg SUPERVISOR [employer] BLOOD TRANSFUSION ORDERAB LES Final Result * Transfuse RBC: 1 Units (07/08/2025 9:41 PM EDT) Richard N Obinnangkangg SUPERVISOR [employer] BLOOD TRANSFUSION ORDERAB LES Final Result * Prepare Fresh Frozen Plasma: 2 Units (07/08/2025 9:24 PM EDT) Product Code P2086Z47 CH BLOO D BANK Dispense Status Transfused BLOOD BANK Blood Expiration Date [id number] BLOOD BANK Unit Number [id number] CH B LOOD BANK Product Blood Type 5100 BLOOD BANK Blood Type O+ CH BLOOD BANK Product Code [id number] CH BLOO D BANK Dispense Status Transfused BLOOD BANK Blood Expiration Date [id number] BLOOD BANK Unit Number [id number] CH B LOOD BANK Product Blood Type 5100 BLOOD BANK Blood Type O+ CH BLOOD BANK Blood Venous blood specimen / Unknown Richard Betts SUPERVIS[employer] BLOOD BANK PRODUCT ORDERA BLES Final Result Performing Organization Address City/State/[facility] Co de Phone Number BLOOD BANK [address] [place] [address], * Prepare Leukocyte Reduced RBC: 2 Units (07/08/2025 9:23 PM EDT) Product Code [id number] CH BLOO D BANK Dispense Status Transfused BLOOD BANK Blood Expiration Date [id number] BLOOD BANK Unit Number [id number] CH B LOOD BANK Product Blood Type 5100 BLOOD BANK Blood Type O+ CH BLOOD BANK Crossmatch Compatible BLOOD BANK Product Code [id number] CH BLOO D BANK Dispense Status Transfused BLOOD BANK Blood Expiration Date [id number] BLOOD BANK Unit Number [id number] B LOOD BANK Product Blood Type 5100 BLOOD BANK Blood Type O+ BLOOD BANK Crossmatch Compatible BLOOD BANK Other Richard Betts CRNA BLOOD BANK PRODUCT ORDERA BLES Final Result BLOOD BANK [address] [place] [address], * (ABNORMAL) Abscess Culture and Gram Stain (07/08/2025 9:06 PM EDT) Culture Light Growth 07/13/2025 1:13 PM EDT [facility] Culture 1+ Mixed skin silvestre(A) 07/13/2025 1:13 PM EDT [facility] Comment: The organism value [...] as Actinomyces turicensis)(A) 07/13/2025 1:13 PM EDT [facility] Comment: This result was determined by MALDI tof Mass spectrometry. This assay was developed and its performance characteristics determined by [facility] as appropriate for clinical purposes. [...] Gram positive cocci(A) 07/13/2025 1:13 PM EDT [facility] Gram Stain Result Few Gram variable rods(A) 07/13/2025 1:13 PM EDT [facility] Gram Stain Result Moderate Gram positive rods(A) 07/13/2025 1:13 PM EDT [facility] Gram Stain Result Numerous Gram negative rods(A) 07/13/2025 1:13 PM EDT [facility] Gram Stain Result Numerous Gram negative coccobacilli(A) 07/13/2025 1:13 PM EDT [facility] Gram Stain Result Moderate Polymorphonuclear leukocytes(A) 07/13/2025 1:13 PM EDT [facility] Swab Topography unknown / Unknown 07/08/2025 9:06 PM EDT 07/08/2025 9:15 PM EDT Comment:Pre-op diagnosis: Necrotizing fasciitis (CMS/HCC) [M72.6] us Luanne Crawford MD LAB MICROBIOLOGY - GENERAL ORDERABLES Final Result [facility] [address] [place] [address] * (ABNORMAL) POCT arterial blood gas gem (07/08/2025 8:51 PM EDT) pH, Arterial 7.28(L) 7.35 - 7.45 07/08/2025 8:53 PM EDT [facility] pCO2, Arterial 53(H) 35 - 48 mm Hg 07/08/2025 8:53 PM EDT [facility] pO2, Arterial 152(H) 83 - 108 mm Hg 07/08/2025 8:53 PM EDT [facility] SO2, Arterial 99(H) 94 - 98 % 07/08/2025 8:53 PM EDT [facility] Base Excess, Arterial -2.3(L) -2 - 3 mmol/L 07/08/2025 8:53 PM EDT [facility] HCO3, Arterial 24.9 22 - 26 mmol/L 07/08/2025 8:53 PM EDT [facility] Total Hemoglobin, Arterial, Whole Blood 10.9(L) 11.2 - 15.7 g/dL 07/08/2025 8:53 PM EDT [facility] Hematocrit, Arterial 33.0(L) 34.0 - 45.0 % 07/08/2025 8:53 PM EDT [facility] Sodium, Arterial 131(L) 136 - 145 mmol/L 07/08/2025 8:53 PM EDT [facility] Potassium, Arterial 3.8 3.6 - 4.9 mmol/L 07/08/2025 8:53 PM EDT [facility] Chloride, Whole Blood 98 97 - 107 mmol/L 07/08/2025 8:53 PM EDT [facility] Glucose, Arterial 418(H) 74 - 99 mg/dL 07/08/2025 8:53 PM EDT [facility] Ionized Calcium, Arterial 4.9 4.6 - 5.1 mg/dL 07/08/2025 8:53 PM EDT [facility] Lactate, Arterial 1.6 0.5 - 1.6 mmol/L 07/08/2025 8:53 PM EDT [facility] Body Temperature 37.0 Celsius 07/08/2025 8:53 PM EDT [facility] pH, Temp Corrected, Arterial 7.28(L) 7.35 - 7.45 07/08/2025 8:53 PM EDT [facility] pCO2, Temp Corrected, Arterial 53(H) 35 - 48 mm Hg 07/08/2025 8:53 PM EDT [facility] pO2, Temp Corrected, Arterial 152(H) 83 - 108 mm Hg 07/08/2025 8:53 PM EDT [facility] Wastewater Supervisor ID Yadi Goel 07/08/2025 8:53 PM EDT [facility] Blood, Arterial Whole blood specimen / Unknown 07/08/2025 8:51 PM EDT 07/08/2025 8:53 PM EDT us Luanne Crawford MD LAB POINT OF CARE TEST DOCKED DEVICE UNSOLICITED RESULTS Final Result [facility] [address] [place] [address] * ED HIV 1/2 Antibody/Antigen Screen w/Reflex to HIV 1/2 Differentiation (07/08/2025 6:14 PM EDT) HIV 1 & 2 Antibody/Antigen Screen Non Reactive Non Reactive 07/08/2025 7:12 PM EDT [facility] Comment:Screening for HIV 1 & 2 antibodies, and P24 antigen is NONREACTIVE. No confirmatory testing is required. Blood Venous blood specimen / Unknown Venipuncture / Unknown 07/08/2025 6:14 PM EDT 07/08/2025 6:30 PM EDT My Charles MD LAB BLOOD ORDERABLES Fi nal Result Performing Organization Address City/[facility]/ZIP Co de Phone Number [facility] [address] [place] [address] * Hepatitis C Antibody - ED (07/08/2025 6:14 PM EDT) Pathologist [facility] Hepatitis C Antibody Negative Negative 07/08/2025 7:12 PM EDT [facility] Blood Venous blood specimen / Unknown Venipuncture / Unknown 07/08/2025 6:14 PM EDT 07/08/2025 6:30 PM EDT My Charles MD LAB BLOOD ORDERABLES Fi nal Result Performing Organization Address [facility] de Phone Number [facility] [address] [place] [address] * (ABNORMAL) C-Reactive protein (07/08/2025 6:14 PM EDT) [facility] CRP, Plasma 462.2(H) <=8.0 mg/L 07/08/2025 7:18 PM EDT [facility] Blood Venous blood specimen / Unknown Venipuncture / Unknown 07/08/2025 6:14 PM EDT 07/08/2025 6:23 PM EDT Narrative [facility] - 07/08/2025 7:18 PM EDT This CRP test is appropriate for assessment of infection, systemic inflammation and/or tissue injury. To assess cardiovascular disease risk order high sensitivity CRP (CRPH). My Charles MD LAB BLOOD ORDERABLES Fi nal Result Performing Organization Address [facility] Co de Phone Number [facility] [address] [place] [address] * (ABNORMAL) Lactic acid, venous (07/08/2025 6:14 PM EDT) [facility] Lactate, Venous, Whole Blood 2.6(H) 0.5 - 2.2 mmol/L LAB HEMATOLOGY METHOD 07/08/2025 6:29 PM EDT [facility] Blood Venous blood specimen / Unknown Venipuncture / Unknown 07/08/2025 6:14 PM EDT 07/08/2025 6:23 PM EDT My Charles MD LAB BLOOD ORDERABLES Fi nal Result Performing Organization Address [facility]/ZIP Co de Phone Number [facility] [address] [place] [address] * Type and screen (07/08/2025 6:14 PM [...] ORD ERABLES Final Result Performing Organization Address [facility] Phone Number BLOOD BANK [address] [place] [address], * (ABNORMAL) PT-INR (07/08/2025 6:14 PM EDT) Prothrombin Time 15.3(H) 12.0 - 14.3 sec 07/08/2025 6:56 PM EDT [facility] INR 1.2(H) 0.9 - 1.1 07/08/2025 6:56 PM EDT [facility] Blood Venous blood specimen / Unknown Venipuncture / Unknown 07/08/2025 6:14 PM EDT 07/08/2025 6:23 PM EDT Narrative [facility] - 07/08/2025 6:56 PM [...] recurrent LA INR 2.5 to 3.5 us My Charles MD LAB BLOOD ORDERABLES Fi nal Result [facility] [address] [place] [address] * (ABNORMAL) CBC w/diff (07/08/2025 6:14 PM EDT) WBC Count 26.15(H) 3.70 - 10.30 10*3/uL LAB HEMATOLOGY METHOD 07/08/2025 9:04 PM EDT [facility] RBC Count 3.97 3.90 - 5.20 10*6/uL LAB HEMATOLOGY METHOD 07/08/2025 9:04 PM EDT [facility] HGB 10.9(L) 11.2 - 15.7 g/dL LAB HEMATOLOGY METHOD 07/08/2025 9:04 PM EDT [facility] HCT 33.6(L) 34.0 - 45.0 % LAB HEMATOLOGY METHOD 07/08/2025 9:04 PM EDT [facility] Platelet Count 329 155 - 369 10*3/uL LAB HEMATOLOGY METHOD 07/08/2025 9:04 PM EDT [facility] MCV 85 79 - 98 fL LAB HEMATOLOGY METHOD 07/08/2025 9:04 PM EDT [facility] MCH 27.5 26.0 - 32.0 pg LAB HEMATOLOGY METHOD 07/08/2025 9:04 PM EDT [facility] MCHC 32.4 30.7 - 35.5 g/dL LAB HEMATOLOGY METHOD 07/08/2025 9:04 PM EDT [facility] RDW 17.3(H) 11.5 - 14.5 % LAB HEMATOLOGY METHOD 07/08/2025 9:04 PM EDT [facility] MPV 10.1 8.8 - 12.5 fL LAB HEMATOLOGY METHOD 07/08/2025 9:04 PM EDT [facility] nRBC 0.0 <=0.0 per 100 WBCs LAB HEMATOLOGY METHOD 07/08/2025 9:04 PM EDT [facility] Differential Type Automated LAB HEMATOLOGY METHOD 07/08/2025 9:04 PM EDT [facility] Neutrophils % 91 % LAB HEMATOLOGY METHOD 07/08/2025 9:04 PM EDT [facility] Lymphocytes % 4 % LAB HEMATOLOGY METHOD 07/08/2025 9:04 PM EDT [facility] Monocytes % 4 % LAB HEMATOLOGY METHOD 07/08/2025 9:04 PM EDT [facility] Eosinophils % 0 % LAB HEMATOLOGY METHOD 07/08/2025 9:04 PM EDT [facility] Basophils % 0 % LAB HEMATOLOGY METHOD 07/08/2025 9:04 PM EDT [facility] Immature Granulocytes % 1 % LAB HEMATOLOGY METHOD 07/08/2025 9:04 PM EDT [facility] Neutrophils Absolute 23.61(H) 1.60 - 6.10 10*3/uL LAB HEMATOLOGY METHOD 07/08/2025 9:04 PM EDT [facility] Lymphocytes Absolute 1.15(L) 1.20 - 3.90 10*3/uL LAB HEMATOLOGY METHOD 07/08/2025 9:04 PM EDT [facility] Monocytes Absolute 0.98(H) 0.30 - 0.90 10*3/uL LAB HEMATOLOGY METHOD 07/08/2025 9:04 PM EDT [facility] Eosinophils Absolute 0.04 0.00 - 0.50 10*3/uL LAB HEMATOLOGY METHOD 07/08/2025 9:04 PM EDT [facility] Basophils Absolute 0.09 0.00 - 0.10 10*3/uL LAB HEMATOLOGY METHOD 07/08/2025 9:04 PM EDT [facility] Immature Granulocytes Absolute 0.25(H) 0.00 - 0.06 10*3/uL LAB HEMATOLOGY METHOD 07/08/2025 9:04 PM EDT [facility] Blood Venous blood specimen / Unknown Venipuncture / Unknown 07/08/2025 6:14 PM EDT 07/08/2025 6:23 PM EDT Narrative [facility] - 07/08/2025 9:04 PM EDT Therapeutic decision making should be based on absolute values, rather than percentages. us My Charles MD LAB BLOOD ORDERABLES Fi nal Result [facility] [address] [place] [address] * (ABNORMAL) CMP (07/08/2025 6:14 PM EDT) Glucose, Plasma 411(H) 74 - 99 mg/dL 07/08/2025 7:18 PM EDT [facility] BUN, Plasma 33(H) 7 - 21 mg/dL 07/08/2025 7:18 PM EDT [facility] Creatinine, Plasma 1.99(H) 0.60 - 1.10 mg/dL 07/08/2025 7:18 PM EDT [facility] BUN/Creatinine Ratio 17 07/08/2025 7:18 PM EDT [facility] Sodium, Plasma 131(L) 136 - 145 mmol/L 07/08/2025 7:18 PM EDT [facility] Potassium, Plasma 4.0 3.6 - 4.9 mmol/L 07/08/2025 7:18 PM EDT [facility] Chloride, Plasma 93(L) 97 - 107 mmol/L 07/08/2025 7:18 PM EDT [facility] CO2, Plasma 22 22 - 29 mmol/L 07/08/2025 7:18 PM EDT [facility] Anion Gap 16 6 - 16 mmol/L 07/08/2025 7:18 PM EDT [facility] Total Calcium, Plasma 9.3 8.9 - 10.2 mg/dL 07/08/2025 7:18 PM EDT [facility] Total Protein 6.0(L) 6.3 - 7.9 g/dL 07/08/2025 7:18 PM EDT [facility] Albumin, Plasma 2.6(L) 3.5 - 5.2 g/dL 07/08/2025 7:18 PM EDT [facility] AST, Plasma 16 10 - 35 U/L 07/08/2025 7:18 PM EDT [facility] ALT, Plasma 15 10 - 35 U/L 07/08/2025 7:18 PM EDT [facility] Alkaline Phosphatase, Plasma 165(H) 35 - 104 U/L 07/08/2025 7:18 PM EDT [facility] Total Bilirubin, Plasma 0.4 0.2 - 1.1 mg/dL 07/08/2025 7:18 PM EDT [facility] eGFRcr 30.3 mL/min/1.7 3m*2 07/08/2025 7:18 PM EDT [facility] Comment:Reported eGFRcr in m L/min/1.73m2 is based the CKD-EPI 2020 equation that does not use a race coefficient. Blood Venous blood specimen / Unknown Venipuncture / Unknown 07/08/2025 6:14 PM EDT 07/08/2025 6:23 PM EDT us My Charles MD LAB BLOOD ORDERABLES Fi nal Result Performing Organization Address City/State/[facility] Co de Phone Number [facility] [address] [place] [address] * [place] [facility], E/M 30-74 MINUTES (07/08/2025 5:58 [...] this encounter Visit Diagnoses Diagnosis Necrotizing fasciitis ([facility]/HCC)- Primary Necrotizing fasciitis Necrotizing fasciitis ([facility]/HCC) Necrotizing fasciitis Necrotizing fasciitis due to microorganism ([facility]/HCC) Morbid (severe) obesity due to excess calories ([facility]/HCC) Septic shock ([facility]/HCC) Acute respiratory failure with hypoxia Type 2 diabetes mellitus with hyperglycemia, without long-term current use of insulin Celiac disease Respiratory insufficiency Other dyspnea and respiratory abnormality DM (diabetes mellitus) Type II or unspecified type diabetes mellitus without mention of complication, not stated as uncontrolled Hidradenitis Smoker Tobacco use disorder Acute respiratory failure Septic shock (CMS/HCC) Absence seizure ([facility]/HCC) 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 epilepsy Chronic obstructive pulmonary disease, unspecified HTN (hypertension), benign Essential hypertension, benign Depression Depressive disorder, not elsewhere classified Morbid (severe) obesity due to excess calories ([facility]/HCC) Urge incontinence HLD (hyperlipidemia) Other and unspecified hyperlipidemia JOSEP (obstructive sleep apnea) Obstructive sleep apnea (adult) (pediatric) Postoperative pain Other acute postoperative pain Necrotizing fasciitis ([facility]/HCC) Necrotizing fasciitis documented in this encounter Admitting Diagnoses Diagnosis Necrotizing fasciitis ([facility]/HCC) Necrotizing fasciitis documented in this encounter [...] Given 07/17/2025 12:00 AM EDT 10 mL documented in this encounter Active and Recently [...] RN) 912 (Not Given - Provider: Kalyn Martell, RN [...] Routine 1001 (Given - Provider: Josi Ann RN)1657 (Given - Provider: Josi Ann RN)2018 (Given [...] Comment: no wv in place due to [facility] dc) polyethylene glycol (Miralax) packet 17 g 17 g, Oral, Daily, First dose on Tue07/12/25 at 1045, Until Discontinued, Routine 1002 (Not Given - Provider: Josi Ann RN - Reason: Patient/family refused) 08 (Not Given - Provider: Josi Ann RN - Reason: Patient/family refused) 09 (Not Given - Provider: Kalyn Martell, RN - Reason: Patient/family refused) rosuvastatin (Crestor) tablet 20 mg 20 mg, Oral, Nightly, First dose on Tue07/11/25 at 2100, Until Discontinued, Routine 2019 (Given - Provider: Inessa lAmazan RN) 2113 (Given - Provider: Inessa Almazan RN) senna-docusate (Leann-Colace) 8.6-50 MG per tablet 1 tablet 1 tablet, Oral, 2 times daily, First dose (after last modification) on Tue07/12/25 at 2100, Until Discontinued, Routine 1002 (Not Given - Provider: oJsi Ann RN - Reason: Patient/family refused)2018 (Not Given - Provider: Inessa Almazan RN - Reason: Patient/family refused) 851 (Not Given - Provider: Josi Ann RN [...] Almazan RN)1232 (Not Given - Provider: Kalyn Martell, RN [...] documented as of this encounter Care Teams Hand Packager Relationship Specialty Start Date End Date Yenny Dhillon APRN [address] [place] [address] PCP - General 07/22/23 documented as of this encounter
--- OUTSIDE RECORDS SUMMARY | 2025-07-14 14:41 | XMS_ITS | Encounter Summary ---
Author Organization Healthcare Address [address] [place] [address] Care Team Providers Care Sewer Pipe Offbearer Name Role Phone Yenny Dhillon APRN Primary Care Provider [phone] Reason for Visit * Auth/Cert (Routine) Specialty Diagnoses / Procedures Referred By Bharati t Referred To Contact Diagnoses Necrotizing fasciitis (CMS/HCC) Necrotizing Fascitis Brittany Crawford MD [address] [facility] [address] [place] [address] Phone: tel: fax: PAV A Inpatient [address] [place] [address] Phone: tel: Referral ID Status Reason Start Date Expiration Date Visits Re quested Visits Authorized [id number] 1 1 Encounter Details Date Type Department Care Team ([facility] st Contact Info) Description 07/14/2025 2:41 PM EDT Anesthesia Event PAV A OPERATING ROOM [address] [place] [address] Azul Eisenberg, KING, DNP [address] [facility] [address] [place] [address] Lynnette Thurston, DO [address] [place], [place] [id number] Anesthesia Record Procedure Summary Procedure Name Responsible [...] No change to dentition. ; Placed by: KIGN; Removal Date: 07/14/25; Removal Time: 16107/14/25 145 [...] any time in the past 12 m [facility], were you homeless or living in a long term (including now)? No 07/15/2025 [facility] Utilities Answer Date Recorded In the [...] and Staff Patient location during procedure: OR EMPLOYMENT OFFICE CLERK: Azul Eisenberg CRNA, DNP Performed: KING Patient [...] 2:21 PM EDT Anesthesiologist: Sharif Taylor MD EMPLOYMENT OFFICE CLERK: Azul Eisenberg CRNA, DNP Patient: Ashley Brown HPI Ashley Brown is a 50 y.o. female with body mass index is 56.12 kg/m??. who presents with Necrotizing fasciitis (CMS/HCC), now for Debridement, possible partial closure of right groin wound (Right) Procedure Information Date/Time: 07/14/25 1405 Procedure: Debridement, possible partial closure of right groin wound (Right) - Lithotomy [facility] Surgeons: Anne Franco MD Relevant Problems [...] Component Value Date PHART 7.28 (L) 07/08/2025 [id number] 53 (H) 07/08/2025 PO2ART 152 (H) 07/08/2025 SO2ART 99 (H) 07/08/2025 BEART -2.3 (L) 07/08/2025 LGB0ELI 28 (H) 07/10/2025 HCTART 33.0 (L) 07/08/2025 SODIUMART 131 (L) 07/08/2025 POTASSIUMART 3.8 07/08/2025 POCTCL 98 07/08/2025 POCGLU 418 (H) 07/08/2025 IONCALART 4.9 07/08/2025 LACTATE 1.7 (H) 07/10/2025 Lab Results Component Value Date PH 7.30 (L) 07/10/2025 PCO2 57 (H) 07/10/2025 PO2 80 (L) 07/10/2025 [id number] 95 07/10/2025 BASEEXC 1.1 07/10/2025 HCTSYR 31.5 (L) 07/10/2025 KSYR 3.9 07/10/2025 CLSYR 103 07/10/2025 GLUSYR 206 (H) 07/10/2025 CAION 5.0 07/10/2025 LACTATE 1.7 (H) 07/10/2025 ECHO No echocardiogram results found for the past 12 months PFTs No results found for: SSI0KTS , QYA4GWLE , LHK3QXZ , FVCPRED BP Readings from Last 5 Encounters: 07/14/25 120/75 07/08/25 97/56 02/29/24 101/66 08/31/23 98/56 Physical Exam Airway Mallampati: II Cardiovascular Rhythm: regular Rate: normal Dental Pulmonary Breath sounds clear to auscultation Neurological Skin Musculoskeletal Extremities Anesthesia Plan ASA 3 Plan was reviewed with: EMPLOYMENT OFFICE CLERK Anesthesia technique(s) discussed with the patient/family: general [...] Anxiety Asthma Carpal tunnel syndrome Depression Diabetes ([facility]/HCC) H/O absence seizures Hidradenitis High cholesterol Hypertension [...] 08/20/2025 10:30 AM EDT Office Visit [facility] General Surgery [address] [place] [address] Lilliana Morfin, VOCATIONAL REHABILITATION COUNSELOR [address] [place] [address] documented as of this encounter Procedures Procedure [...] and Staff Patient location during procedure: OR EMPLOYMENT OFFICE CLERK: Azul Eisenberg CRNA, DNP Performed: EMPLOYMENT OFFICE CLERK Patient Condition Indications for airway management: anesthesia [...] documented as of this encounter Care Teams Sewer Pipe Offbearer Relationship Specialty Start Date End Date Yenny Dhillon APRN [address] [place] [address] PCP - General 07/22/23 documented as of this encounter
[2025-08-02 22:42] VITALS: BP 133/87; PULSE 112; RESP 18; TEMP 36.8; O2SAT 96; BMI 49.6
--- NOTE | 2025-08-02 22:56 | HMH.EDGENADL ---
Discharge Plan Disposition Patient Disposition: Home, Self-Care Condition: Good Prescriptions Prescriptions: No Action (DME) Blood Glucose Test Strip See Rx Instructions .Route Qty: 50 3RF Rx Instructions: BID naproxen 500 mg tablet 500 mg PO BID Patient Comments: TAKE 1 TABLET BY MOUTH TWICE DAILY WITH FOOD cholecalciferol (vitamin D3) 125 mcg (5,000 unit) tablet 125 mcg PO DAILY Patient Comments: TAKE 1 TABLET BY MOUTH ONCE DAILY folic acid 1 mg tablet 1 mg PO DAILY Myrbetriq 25 mg tablet extended release 24 hr 25 mg PO DAILY Ozempic 0.25 mg or 0.5 mg (2 mg/3 mL) pen injector 0.25 mg SQ WEEKLY lamotrigine 100 mg tablet extended release 24hr 100 mg PO DAILY Patient Comments: TAKE 1 TABLET BY MOUTH ONCE DAILY AT NIGHT AT BEDTIME DIRECTED metoprolol succinate [Toprol XL] 100 mg tablet extended release 24 hr 100 mg PO DAILY Qty: 30 6RF albuterol sulfate 90 mcg/actuation HFA aerosol inhaler 2 inh IH Q6H PRN (Reason: shortness of breath or wheezing) 90 Days Qty: 8.5 3RF budesonide-formoterol [Symbicort] 160-4.5 mcg/actuation HFA aerosol inhaler 2 puff IH BID 90 Days Qty: 10.2 3RF fluticasone propionate [Flonase Allergy Relief] 50 mcg/actuation spray,suspension 2 spray NS DAILY PRN (Reason: allergy symptoms) 90 Days Qty: 16 3RF Rx Instructions: administer into each nostril montelukast 10 mg tablet 10 mg PO QPM 90 Days Qty: 90 2RF loratadine 10 mg tablet 10 mg PO DAILY Patient Comments: TAKE 1 TABLET BY MOUTH ONCE DAILY ipratropium-albuterol 0.5 mg-3 mg(2.5 mg base)/3 mL solution for nebulization 3 ml INHALATION Q6H PRN (Reason: shortness of breath or wheezing) Qty: 180 3RF Linzess 72 mcg capsule 72 mcg PO DAILY Patient Comments: TAKE 1 CAPSULE BY MOUTH ONCE DAILY FOR CONSTIPATION buspirone 15 mg tablet 15 mg PO TIDP PRN (Reason: Anxiety) Patient Comments: TAKE 1 TABLET BY MOUTH THREE TIMES DAILY NEEDED rosuvastatin 20 mg tablet 20 mg PO HS Patient Comments: TAKE 1 TABLET BY MOUTH ONCE DAILY duloxetine 60 mg capsule,delayed release(DR/EC) 60 mg PO DAILY Patient Comments: TAKE 1 CAPSULE BY MOUTH ONCE DAILY DIRECTED valsartan-hydrochlorothiazide 320-12.5 mg tablet 1 tab PO DAILY Patient Comments: TAKE 1 TABLET BY MOUTH ONCE DAILY metformin 500 mg tablet 500 mg PO DAILY Rx Instructions: Take 1 tablet by mouth twice daily Referrals Follow up/Referrals: Yenny Dhillon APRN [Primary Care Provider, Medical] - See instructions Activity Restrictions/Add. Instructions Additional Instructions/Restrictions: Please follow-up with your primary care provider. Please return to the emergency department if you develop any new or worsening symptoms or become concerned for your health. Clinical Impressions Clinical Impression: Encounter for postoperative wound check Instructions Patient Instructions: DI for Laceration Repair Print Language Print Language: Citizen Of [place] Discharge ED Provider: Dave Mcmillan General Adult HPI General Chief complaint: Wound/Laceration Stated complaint: wound vac needs reattached Time Seen by Provider: 08/02/25 22:56 Mode of Arrival: Wheelchair Source of Information: Patient Description of Symptoms (Recalled from ER Triage Doc. by RN): Pt presents for evaluation of wound vac to right thigh to groin that has began disconnected. Pt reports to contacting [facility] and being instructed to dry pack wound until she is able to follow up with surgeon in [facility]. Pt reports wound is oozing approx 4 cannisters of drainage a day and is unable to keep up with drainage at this time. Pt reports to having home health but is not met them yet. History of Present Illness HPI narrative: 50-year-old female with history of recent necrotizing fasciitis status post multiple operations, ICU stay, rehab stay. She was discharged with wound VAC but they quickly ran out of supplies. They have been dry packing the wound since the wound VAC ran out, and they were hoping to get additional supplies. She denies fever or chills or concern for new infection. Related Data Home Medications ?Medication ?Instructions ?Recorded ?Confirmed folic acid 1 mg tablet 1 mg PO DAILY 07/07/23 07/08/25 cholecalciferol (vitamin D3) 125 125 mcg PO DAILY 08/09/23 07/08/25 mcg (5,000 unit) tablet naproxen 500 mg tablet 500 mg PO BID 08/09/23 07/08/25 mirabegron 25 mg tablet,extended 25 mg PO DAILY 02/08/24 07/08/25 release 24 hr (Myrbetriq) buspirone 15 mg tablet 15 mg PO TIDP PRN Anxiety 09/05/24 07/08/25 duloxetine 60 mg capsule,delayed 60 mg PO DAILY 09/05/24 07/08/25 release linaclotide 72 mcg capsule 72 mcg PO DAILY 09/05/24 07/08/25 (Linzess) metformin 500 mg tablet 500 mg PO DAILY 09/05/24 07/08/25 rosuvastatin 20 mg tablet 20 mg PO HS 09/05/24 07/08/25 valsartan 320 1 tab PO DAILY 09/05/24 07/08/25 mg-hydrochlorothiazide 12.5 mg tablet semaglutide 0.25 mg or 0.5 mg (2 0.25 mg SQ WEEKLY 03/27/25 07/08/25 mg/3 mL) subcutaneous pen injector (Ozempic) loratadine 10 mg tablet 10 mg PO DAILY 04/25/25 07/08/25 lamotrigine 100 mg tablet,extended 100 mg PO DAILY 06/25/25 07/08/25 release 24 hr Previous Rx's ?Medication ?Instructions ?Recorded blood sugar diagnostic (Blood #50 ea 04/28/22 Glucose Test strips) albuterol sulfate 90 mcg/actuation 2 inh inhalation Q6H PRN shortness 06/15/22 aerosol inhaler of breath or wheezing 90 days #8.5 grams ipratropium 0.5 mg-albuterol 3 mg 3 ml inhalation Q6H PRN shortness 11/28/23 (2.5 mg base)/3 mL nebulization of breath or wheezing #180 mL soln budesonide-formoterol HFA 160 2 puff inhalation BID 90 days 05/02/25 mcg-4.5 mcg/actuation aerosol #10.2 grams inhaler (Symbicort) fluticasone propionate 50 2 spray intranasal DAILY PRN 05/02/25 mcg/actuation nasal allergy symptoms 90 days #16 grams spray,suspension (Flonase Allergy Relief) montelukast 10 mg tablet 10 mg PO QPM 90 days #90 tabs 05/02/25 metoprolol succinate 100 mg 100 mg PO DAILY #30 tabs 06/25/25 tablet,extended release 24 hr (Toprol XL) Allergies Allergy/AdvReac Type Severity Reaction Status Date / Time bupropion (From Wellbutrin) Allergy Severe Anaphylaxis Verified 06/25/25 11:37 aspirin (ASPIRIN) Allergy Mild Unknown Verified 06/25/25 11:37 allergy reaction doxycycline (DOXYCYCLINE) Allergy Mild Unknown Verified 06/25/25 11:37 allergy reaction diazepam (From Valium) Allergy Unknown Verified 06/25/25 11:37 allergy reaction Penicillins Allergy Unknown Verified 06/25/25 11:37 allergy reaction alprazolam (From Xanax) AdvReac Severe Agitated Verified 06/25/25 11:37 [facility] Disclaimer: The information contained in this section may have been updated after the patient was seen, as this information can be updated by other users. Medical History Respiratory failure with hypoxia Frequent PVCs Shortness of breath Snoring History of absence seizures Altered awareness, transient Hidradenitis Complex multifocal hidradenitis. Recent left medial thigh abscessed hidradenitis status post spontaneous drainage. Left lateral mid abdominal wall wound also noted (possible same etiology). Wound dehiscence Pharyngitis Abnormal electrocardiogram [ECG] [EKG] BMI 50.0-59.9, adult Bronchitis Diabetes mellitus Hyperlipidemia Allergic rhinitis Family history of emphysema Asthma Family history of asthma Tobacco abuse counseling Tobacco abuse disorder Dyspnea on exertion Smoking greater than 30 pack years Seasonal allergic rhinitis Moderate persistent asthma Morbid obesity HTN (hypertension), benign Hidradenitis suppurativa Surgical History History of carpal tunnel surgery Hx of cholecystectomy History of tonsillectomy History of hysterectomy Family History Other Cancer Coronary artery disease FHx: mental illness Heart attack Hyperlipidemia Hypertension No significant family history Stroke Social History Smoking Status: Current every day smoker tobacco type: cigarettes packs per day: 1 second hand exposure: Yes alcohol intake: never substance use type: marijuana current occupational status: unemployed Travel in the last 8 weeks?: None housing: house Have you lived/traveled outside US in past 30 days?: No Contact w/someone who lives/traveled outside US past 30 days?: No Exposure to someone with infectious disease in past 14 days?: No Do you have a fever (greater than 100.4 F or 38 C)?: No Have you tested positive for COVID-19?: No Exposed to someone with COVID-19 in past 14 days?: No Do you have a sore throat?: No Do you have a cough?: No Do you have any weakness?: No Do you have any diarrhea?: No Are you experiencing any unusual bleeding?: No Do you have any muscle aches/pain?: No Do you have any abdominal pain?: No Are you experiencing loss of taste or smell?: No Other Medical History Have you received the Flu Vaccine for this season: No Have you received the Pneumonia Vaccine: No ROS Obtained: Yes All systems reviewed & no additional complaints except as documented Physical Exam General General appearance: alert and in no apparent distress Head Head exam: atraumatic and normocephalic Eye Eye exam: Present normal appearance, PERRL and EOMI ENT ENT exam: Present normal oropharynx and normal external ear exam Neck Neck exam: Present normal inspection and full ROM Chest Chest inspection: Present normal inspection and symmetric chest wall rise; Absent tenderness Respiratory Respiratory exam: Present normal lung sounds bilaterally; Absent respiratory distress Cardiovascular Cardiovascular exam: Present regular rate and normal rhythm Abdominal Exam Abdominal exam: Present soft; Absent distention, tenderness or guarding Extremities Exam Extremities exam: Present normal inspection; Absent edema or joint swelling Back Exam Back exam: Present normal inspection; Absent tenderness Neurological Exam Neurological exam: Present alert and oriented X3; Absent motor sensory deficit Psychiatric Psychiatric exam: Present normal affect and normal mood Skin Skin exam: Present warm, dry, normal color and other (Very large surgical wound in the right thigh, right lower quadrant and into the inguinal area. It is pink, well-perfused, without odor and without purulence) Lymphatic Lymphatic Findings: no adenopathy Medical Decision Making Medical Records Medical records reviewed: Yes I reviewed the patient's medical records. Screening: Per USPSTF and CDC recommendations, given the prevalence of disease in our region, it is our hospital?s policy to screen for HIV and viral Hepatitis for all patients aged 18 and over and those with ongoing risk factors. Cristian Inquiry Pt receiving controlled substance: No Cristian was queried for this patient: No Vital Signs: 08/02/25 22:42 08/02/25 23:31 Temperature 98.3 F 98.1 F Temperature Source Oral Oral Pulse Rate 96 H Pulse Rate [Radial] 112 H Respiratory Rate 18 18 Blood Pressure 133/87 Blood Pressure [Right Arm] 133/87 Blood Pressure Mean [Right Arm] 102 Blood Pressure Source Automatic Cuff Blood Pressure Position Supine Blood Pressure Position [Right Arm] Sitting 02 Sat by Pulse Oximetry 96 Oxygen Delivery Method Room Air Room Air Lab Data Lab results reviewed: Yes I reviewed the patient's lab results. Medical Decision Narrative: 50-year-old female recently discharged the hospital after extensive course for necrotizing fasciitis presents with large wound that is well-appearing, she requires wound VAC change/packing material.. History was obtained via interactive discussion with patient, family. On arrival, patient is [afebrile, hemodynamically stable, satting appropriately, alert, oriented x4, GCS 15], moving all extremities spontaneously. Full physical exam performed and significant for Very large surgical wound in the right thigh, right lower quadrant and into the inguinal area. It is pink, well-perfused, without odor and without purulence. We do not have any wound VAC change materials, nor my certain that we would be able to do wound VAC changes in the hospital over the weekend. I communicated this with the patient and they were provided with materials to continue doing dressing changes at home until they can follow-up with their regular wound care team. Return precautions given for signs of infection. Lab work/CT imaging was considered, but deemed unnecessary due to clinically well-appearing wound without signs of infection. Procedures Risk/Benefits of Procedure(s) Were Explained: Yes Critical Care Critical Care Time Critical Care Time: No
--- OUTSIDE RECORDS SUMMARY | 2025-08-02 23:15 | XMS_ITS | Clinical Summary ---
Author Organization [facility] Address [address] [place] [address] Phone Care Team Providers Care Switchboard Inspector Name Role Phone Unavailable Primary Care Provider Unavailabl e Allergies Active Allergy Reactions Criticality Noted Date Comments Aspirin Hives,Rash 06/08/2023 Doxycycline Rash 06/08/2023 Penicillins Rash 06/08/2023 Diazepam Other (See Comments) 06/09/2023 Makes her mean Hydrocodone-Acetaminophe n Other (See Comments) 06/08/2023 Mean Bupropion Hcl Anaphylaxis High 06/08/2023 Medications valsartan-hydro chlorothiazide (DIOVAN-HCT) 320-12.5 mg Oral Tablet Take 1 Tablet by mouth daily. 360/12.5 Active metFORMIN (GLUCOPHAGE) 500 mg Oral Tablet Take by mouth 2 times daily. Active busPIRone (BUSPAR) 10 mg Oral Tablet Take 10 mg by mouth 2 times daily. Active rosuvastatin (CRESTOR) 10 mg Oral Tablet Take 10 mg by mouth daily. Active escitalopram oxalate (LEXAPRO) 20 mg Oral Tablet Take 10 mg by mouth daily. Active montelukast (SINGULAIR) 10 mg Oral Tablet Take 10 mg by mouth every evening. Active Cholecalciferol , Vitamin D3, 50 mcg (2,000 unit) Oral Capsule Take 5,000 Units by mouth daily. Active folic acid (FOLVITE) 1 mg Oral Tablet Take 1 mg by mouth daily. Active semaglutide 0.25 mg or 0.5 mg(2 mg/1.5 mL) SubQ Pen Injector Subcutaneous (Inject under the skin) 0.25 mg once a week. Active lxqdbucd-ogiy-o uw7-V-tgjh-bosw (OSTEO BI-FLEX TRIPLE STRENGTH) 750 mg-644 mg- 30 mg-1 mg Oral Tablet Take 1 Tablet by mouth 2 times daily. Active docusate sodium (COLACE) 100 mg Oral Capsule Take 200 mg by mouth daily. Active budesonide-form oteroL (SYMBICORT) 160-4.5 mcg/actuation Inhl HFA Aerosol Inhaler Inhale 2 Puffs into the lungs 2 times daily. Active fluticasone propionate (FLONASE) 50 mcg/actuation Nasl [place], Suspension 2 Sprays by Nasal route 2 times daily. Active Active Problems Problem Noted Date Diagnosed Date Carpal tunnel syndrome 06/09/2023 Depression 06/09/2023 Smoker 06/09/2023 Marijuana smoker 06/09/2023 Obesity, morbid, BMI 50 or higher 06/09/2023 Type 2 diabetes mellitus 06/09/2023 Dehydration 06/08/2023 Surgical History Surgery Date Site/Laterality Comments HYSTERECTOMY CHOLECYSTECTOMY TONSILLECTOMY Medical History Medical History Date Comments Asthma Diabetes mellitus (HCC) CD (celiac disease) Vitamin A deficiency Vitamin D deficiency Vitamin E deficiency Hypertension Hyperlipidemia Heartburn Arthritis Seizures (HCC) Encounter for blood transfusion Depression Anxiety disorder Carpal tunnel syndrome Social History Tobacco Use Types Packs/Day Years Used Date Smoking Tobacco: Every Day Cigarettes 1.5 38.1 Started: 06/09/1987 Passive Smoke Exposure: Current Smokeless Tobacco: Never Tobacco Cessation:Ready to Q uit: No; Counseling Given: Not Answered Alcohol Use Standard Drinks/Week Comments Not Currently 0 (1 standard drink = 0.6 oz pur e alcohol) Sexually Active Control Partners Comments Yes Male Comments Unknown Sex and Gender Information Value Date Recorded Sex Assigned at Not on file Legal Sex Female 8:25 PM EDT Gender Identity Not on file Sexual Orientation Not on file Obstetrics History Last Filed Vital Signs Vital Sign Reading Time Taken Comments Blood Pressure 109/93 06/09/2023 10:00 AM EDT Pulse 67 06/09/2023 10:00 AM EDT Temperature 36.4 C (97.6 F) 06/09/2023 10:00 AM EDT Respiratory Rate 18 06/09/2023 10:0 0 AM EDT Oxygen Saturation 94% 06/09/2023 10: 00 AM EDT Inhaled Oxygen Concentration - - Weight 161.6 kg (356 lb 4.2 oz) 06/09/2023 3:44 AM EDT Height 177.8 cm (5' 10 ) 06/09/2023 3:44 AM EDT Body Mass Index 51.12 06/09/2023 3:44 AM EDT Plan of Treatment Health Maintenance Due Date Last Done Comments Annual Wellness Exam 1979 Lipids 1986 Diabetic Eye Exam 1994 Hemoglobin A1c 1994 Kidney Health: uACR 1994 DTaP/TDaP/Td (1 - Tdap) 1995 Hepatitis B Vaccine (1 of 3 - 19+ 3-dose series) 1995 Pneumococcal Vaccine 0-49 (1 of 2 - PCV) 1995 Cervical Cancer Screening 1997 Pap Smear 1997 HPV/Pap Cotest 2006 Breast Cancer Screening 2016 Cologuard 2021 Colon Cancer Screening 2021 Colonoscopy 2021 FIT 2021 Sigmoidoscopy 2021 Virtual Colonography 2021 Kidney Health: eGFR 06/09/2024 06/09/2023, 06/09/2023, 06/08/2023 COVID-19 Vaccine ( - 2023-2 5 season) 2025 Influenza Vaccine (#1) 2025 Meningococcal B Vaccine Aged Out No l onger eligible based on patient's age to complete this topic Procedures Procedure Name Priority Date/Time Associated Diagnosis Comments BASIC METABOLIC PANEL Routine 06/09/2023 5:45 AM EDT from Last 3 Months or Most Recently Relevant to Health Maintenance Results * (ABNORMAL) BASIC METABOLIC PANEL (06/09/2023 5:45 AM EDT) Sodium 137 136 - 145 mmol/L 06/09/2023 6:37 AM EDT [facility] Potassium 3.9 3.5 - 5.0 mmol/L 06/09/2023 6:37 AM EDT [facility] Chloride 98 98 - 107 mmol/L 06/09/2023 6:37 AM EDT [facility] Total CO2 27 22 - 29 mmol/L 06/09/2023 6:37 AM EDT [facility] Anion Gap 12 7 - 16 mmol/L 06/09/2023 6:37 AM EDT [facility] Calcium 10.0 8.6 - 10.4 mg/dL 06/09/2023 6:37 AM EDT [facility] Glucose Lvl 116(H) 74 - 100 mg/dL 06/09/2023 6:37 AM EDT [facility] BUN 33(H) 6 - 20 mg/dL 06/09/2023 6:37 AM EDT [facility] Creatinine 1.57(H) 0.51 - 1.30 mg/dL 06/09/2023 6:37 AM EDT [facility] eGFR (CKD-EPIcr 2020) 40(L) >=60 mL/min/1.7 3 m2 06/09/2023 6:37 AM EDT [facility] Comment:Estimated GFR was ca lculated using the CKD-EPIcr (2020) equation refit without race. The equation is recommended by the National Kidney Foundation - [employer] Neph[employer] Task Force. Blood VENOUS BLOOD / Unknown Venipuncture / Unknown 06/09/2023 5:45 AM EDT 06/09/2023 6:13 AM EDT us Sakshi Bolton FAN INSTALLER CHEMISTRY ORDERABLES Fi nal Result [facility] [address] [place] [address] from Last 3 Months or Most Recently Relevant to Health [place] [address] MEDICAID Advance Directives For more information, please contact: [phone] * Full Code (Latest Code Status on File) Date Activated Date Inactivated Comments 06/09/2023 3:43 AM 06/09/2023 11:28 PM
--- OUTSIDE RECORDS SUMMARY | 2025-08-02 23:17 | XMS_ITS | Encounter Summary ---
Author Organization Healthcare Address [address] [place] [address] Care Team Providers Care Inspector Optical Instrument Name Role Phone Yenny Dhillon Lit CASTRO Primary Care Provider [phone] Reason for Visit * Reason Onset Date Comments HCN Clinical Concern/Question 08/02/2025 Encounter Details Date Type Department Care Team (Late st Contact Info) Description 08/02/2025 Telephone [facility] [address], [address] [place] [address] Marj Matamoros APRN [address] [place] [address] HCN Clinical Concern/Question Social History Tobacco Use Types Packs/Day Years [...] any time in the past 12 m [facility], were you homeless or living in a snf (including now)? No 07/15/2025 [facility] Utilities Answer Date Recorded In the past [...] encounter Miscellaneous Notes * Telephone Encounter - Marilee Sinha - 08/02/2025 10:38 AM EDT Patient Phone Message Reason for Call: Pt is calling states she DC from [facility] on Tue. Was advised to call and make LUIS A follow up with Richelle Matamoros. Please advise Best contact number and optimal time of day to reach caller: [phone] Note: Please do not reply to this message. Follow-up communication and further actions as a result of this message need to be communicated with the patient directly, if the patient is not active onMyChart. If the patient is active on MyChart, they will receive notification of the communication/outcome via [employer]. documented in this encounter Plan of Treatment Upcoming Encounters Date Type Department Care Team (Late st Contact Info) Description 08/20/2025 10:30 AM EDT Office Visit [facility] General Surgery [address], [address] [place] [address] Lilliana Morfin APRN [address] [place] [address] documented as of this encounter [...] documented as of this encounter Care Teams Inspector Optical Instrument Relationship Specialty Start Date End Date Yenny Dhillon APRN [address] [place] [address] PCP - General 07/22/23 documented as of this encounter
--- OUTSIDE RECORDS SUMMARY | 2025-08-02 23:17 | XMS_ITS | Encounter Summary ---
Author Organization Healthcare Address [address] [place] [address] Care Team Providers Care Animal Nurse Name Role Phone Yenny Dhillon APRN Primary Care Provider [phone] Encounter Details Date Type Department Care Team (Latest Contact Info) Description 07/16/2025 Travel Social History Tobacco Use Types Packs/Day [...] were you homeless or living in a penitentiary (including now)? No 07/15/2025 [facility] Utilities Answer Date Recorded In the past 12 months has th e electric, gas, oil, or water [employer] threatened to shut off services in your [...] Date of Assessment Author No Risk Indicated 07/16/2025 8:25 PM EDT Eulalia Estrada RN * Question Answer Date of Assessment Author 1. Wish to be (Past 1 Month) No 025 8:25 PM EDT Eulalia Estrada RN 2. Non-Specific Active Suici silvia Thoughts (Past 1 Month) No 07/16/2025 8:25 PM EDT Ivy Estrada RN 6. Suicidal Behavior (Lifetime) No 8:25 PM EDT Eulalia Estrada RN documented as of this encounter Plan of Treatment Upcoming Encounters Date Type Department Care Team (Late st Contact Info) Description 08/20/2025 10:30 AM EDT Office Visit [facility] General Surgery [address], [address] [place] [address] Lilliana Morfin APRN [address] [place] [address] documented as of this encounter [...] documented as of this encounter Care Teams Animal Nurse Relationship Specialty Start Date End Date Yenny Dhillon APRN [address] [place] [address] PCP - General 07/22/23 documented as of this encounter
--- OUTSIDE RECORDS SUMMARY | 2025-08-02 23:17 | XMS_ITS | Encounter Summary ---
Author Organization Healthcare Address [address] [place] [address] Care Team Providers Care Diesel Truck Mechanic Name Role Phone Yenny Dhillon APRN Primary Care Provider [phone] Encounter Details Date Type Department Care Team (Latest Contact Info) Description 07/22/2025 Travel Social History Tobacco Use Types Packs/Day [...] any time in the past 12 m [facility], were you homeless or living in a senior living (including now)? No 07/15/2025 [facility] Utilities Answer Date Recorded In the past [...] Description 08/20/2025 10:30 AM EDT Office Visit [facility] General Surgery [address], [address] [place] [address] Lilliana Morfin APRN [address] [place] [address] documented as of this encounter [...] documented as of this encounter Care Teams Diesel Truck Mechanic Relationship Specialty Start Date End Date Yenny Dhillon APRN [address] [place] [address] PCP - General 07/22/23 documented as of this encounter
--- OUTSIDE RECORDS SUMMARY | 2025-08-02 23:17 | XMS_ITS | Data Portability ---
Author Organization [facility] [place] & [facility]DE[facility] Can ADMIN Address [address] [place] [id number] Care Team Providers Care Ophthalmologist Retina Specialist Name Role Phone BELIA HERNANDEZ Primary Care Provider [phone] Assessment Encounter Date Assessment Date Assessment LastModified by Organization Details LastModified Time 09/19/2023 09/19/2023 47-year-old female with: 1.) Celiac disease: Continue a gluten free diet. Continue vitamin supplements. -Will repeat her Celiac serology and vitamin labs per below. -She will f/u in 6 months. Consider repeating EGD for repeat biopsies with residual symptoms or vitamin deficiencies despite a gluten free diet. 2) History of H. pylori infection: Completed Bismuth Quadruple therapy previously. 3) Chronic constipation: Resolved with a gluten free diet. -Colonoscopy on 04/06/23 with 2 lipomas resected. 4) Abdominal pain/eructation: Improved with treatment of H. pylori and implementation of a gluten free diet for Celiac disease. She has had recent increase in belching the setting of Ozempic use. 5) Belching/nausea: Samples of FDgard provided. -f/u 6 months [email or web address] Not available 09/19/2023 10:13:37 02/28/2024 02/28/2024 48-year-old female with: 1.) Celiac disease: Recommended she tried to be more strict with the gluten free diet. Continue vitamin supplements. -Will repeat her Celiac serology and vitamin labs at follow-up next month. -Consider repeating EGD for repeat biopsies with residual symptoms or vitamin deficiencies despite a gluten free diet. 2) History of H. pylori infection: Completed Bismuth Quadruple therapy previously. 3) Chronic constipation: Previously resolved with a gluten free diet. -Colonoscopy on 04/06/23 with 2 lipomas resected. -start Linzess 72 mcg p.o. once daily. 4) Abdominal pain/eructation: Improved with treatment of H. pylori and implementation of a gluten free diet for Celiac disease. She has had recent increase in belching the setting of Ozempic use. She may discuss dose reduction with the prescribing provider if symptoms continue. -f/u 1 month [email or web address] Not available 02/28/2024 13:03:42 03/29/2024 03/29/2024 48-year-old female with: 1.) Celiac disease: Recommended she tried to be more strict with the gluten free diet. Continue vitamin supplements. -Continue routine lab monitoring. 2) History of H. pylori infection: Completed Bismuth Quadruple therapy previously. 3) Chronic constipation: Improved. Continue Linzess 72 mcg daily. -Colonoscopy on 04/06/23 with 2 lipomas resected. 4) Abdominal pain/eructation: Improved with treatment of H. pylori and implementation of a gluten free diet for Celiac disease. She has had recent increase in belching the setting of Ozempic use. She may discuss dose reduction with the prescribing provider if symptoms continue. -f/u 6 months [email or web address] Not available 03/30/2024 15:15:39 06/13/2025 06/13/2025 50-year-old female with: 1.) Celiac disease: She will continue to work on adhering to a gluten free diet. Continue vitamin supplements. -Continue routine lab monitoring. 2) History of H. pylori infection: Completed Bismuth Quadruple therapy previously. 3) Chronic constipation: Improved. Continue Linzess 72 mcg daily. -Colonoscopy on 04/06/23 with 2 lipomas resected. 4) Vitamin Deficiencies: She has continued vitamin D, Vitamin E, and Vitamin K2. -f/u 12 months unless otherwise indicated by labs [email or web address] Not available 06/13/2025 09:46:20 Plan of Treatment Reminders Order Date Submit Date Provider Last Modified By Organization Details Last Modified Time Details Appointments Establish ed Visit 15 min 2025 09:15A M Loyd Allen PA-C Not available Not available Not available Lab vitamin D, 25-hydrox y, total, serum [address] (Registration ), [address], [place], [address], 06/24/2025 16:02:53 copper, serum or plasma [address] (Registration ), [address], [place], [address], 06/24/2025 16:02:53 CMP, serum or plasma 2024 025 [facility] (Registration ), [address], [place], [address], 06/14/2025 16:09:05 CBC [address] (Registration ), [address], [place], [address], 06/24/2025 16:02:54 vitamin B12 + folate, serum or blood [address] (Registration ), [address], [place], [address], 06/24/2025 16:02:54 zinc, serum or plasma [address] (Registration ), [address], [place], [address], 06/24/2025 16:02:54 iron + TIBC + ferritin, serum [address] (Registration ), [address], [place], [address], 06/24/2025 16:02:54 carotene, serum 2024 025 [facility] (Registration ), [address], [place], [address], 06/20/2025 10:12:16 vitamin A (retinol) , serum 2024 025 [facility] (Registration ), [address] [facility], [place], [address], 06/20/2025 06:11:54 vitamin E, serum 2024 025 [email or web address] 3 [facility] (Registration ), [address], [place], [address], 06/24/2025 16:02:54 celiac disease comprehen sive panel, serum 2024 025 [facility] (Registration ), [address], [place], [address], 06/17/2025 15:12:20 carotene, serum 2022 023 [email or web address] 4 [facility], [address], [facility] [address], [place], [address], 09/26/2023 15:01:59 zinc, serum or plasma 2022 023 [email or web address] 4 [facility], [address], [facility] [address], [place], [address], 09/26/2023 15:02:00 copper, serum or plasma 2022 023 [email or web address] 4 [facility], [address], [place], [address], 09/26/2023 15:02:00 unlisted lab - vitamin A and E 2022 023 [email or web address] 4 [facility], [address], [place], [address], 09/26/2023 15:02:00 vitamin D, 25-hydrox y, total, serum 2022 023 [email or web address] 4 [facility], [address], [address], [place], [address], 09/26/2023 15:02:00 celiac disease IgA + HLA typing + serology panel, blood or tissue 2022 023 [email or web address] 4 [facility], [address], [address], [place], [address], 09/26/2023 15:02:00 CMP, serum or plasma 2022 023 [email or web address] 4 [facility], [address], [address], [place], [address], 09/26/2023 15:02:01 CBC 2022 023 [email or web address] 4 [facility], [address], [address], [place], [address], 09/26/2023 15:02:01 iron + TIBC + ferritin, serum 2022 023 [email or web address] 4 [facility], [address], [address], [place], [address], 09/26/2023 15:02:01 vitamin B12 + folate, serum or blood 2022 023 [email or web address] 4 [facility], [address], [address], [place], [address], 09/26/2023 15:02:01 Referral None recorded. Procedures nerve conductio n study/EMG , lower extremity (PROC) 2023 024 [email or web address] Not available 04/19/2024 13:27:00 Surgeries None recorded. Imaging None recorded. Medication Orders Linzess 72 mcg capsule 2023 024 [email or web address] [facility], [address], [address], 02/28/2024 12:59:56 Patient TargetsNo targets recorded. Patient InstructionsNo instructions recorded. Reason for Referral None Reported. Results Created Date Observation Date Name Description Value Unit Range Abnormal Flag Note LastModifiedBy Organization Detail LastModifiedTime 09/19/2009/20/2023 IKE C DISEA SE COMPR EHENS GABY deamidated gliadin abs, IgA 25 units 0-19 above high normal Negat gaby 0 - 19 Weak Posit gaby 20 - 30 Moder ate to Stron g Posit gaby >30 Not Available [facility] ([facility]) [address] [place], [address], 10/01/2023 07:08:22 09/19/2009/20/2023 IKE C DISEA SE COMPR EHENS GABY deamidated gliadin abs, IgG 14 units 0-19 Negat gaby 0 - 19 Weak Posit gaby 20 - 30 Moder ate to Stron g Posit gaby >30 Not Available [facility] ([facility]) [address] [place], [address], 10/01/2023 07:08:22 09/19/2009/20/2023 IKE C DISEA SE COMPR EHENS GABY T-transgluta minase (ttg) IgA 9 U/mL 0-3 above high normal Negat gaby 0 - 3 Weak Posit gaby 4 - 10 Posit gaby >10 Tissu e Trans gluta josé manuel e (tTG) has been ident ified as the endom ysial antig en. Studi es have demon str- ated that endom ysial IgA antib odies have over 99% speci ficit y for glute n sensi tive enter opath y. Not Available [facility] ([facility]) [address] [place], [address], 10/01/2023 07:08:22 09/19/20 23 09/20/2023 IKE C DISEA SE COMPR EHENS GABY T-transgluta minase (ttg) IgG 5 U/mL 0-5 Negat gaby 0 - 5 Weak Posit gaby 6 - 9 Posit gaby >9 Not Available [facility] ([facility]) [address] [place], [address], 10/01/2023 07:08:22 09/19/20 23 09/20/2023 IKE C DISEA SE COMPR EHENS GABY endomysial antibody IgA NEGATI VE negati ve Not Available [facility] ([facility]) [address] [facility], [place], [address], 10/01/2023 07:08:22 09/19/20 23 09/20/2023 IKE C DISEA SE COMPR EHENS GABY immunoglobul in A, qn, serum 261 mg/dL 87-352 Not Available [facility] ([facility]) [address] [place], [address], 10/01/2023 07:08:22 09/19/20 23 09/20/2023 FE+TI BC+FE R iron bind.cap.(TI BC) 321 ug/dL 250-45 0 Not Available [facility] ([facility]) [address] [place], [address], 10/01/2023 07:08:23 09/19/20 23 09/20/2023 FE+TI BC+FE R UIBC 265 ug/dL 131-42 5 Not Available [facility] ([facility]) [address] [place], [address], 10/01/2023 07:08:23 09/19/20 23 09/20/2023 FE+TI BC+FE R iron 56 ug/dL 27-159 Not Available [facility] ([facility]) [address] [place], [address], 10/01/2023 07:08:23 09/19/20 23 09/20/2023 FE+TI BC+FE R iron saturation 17 % 15-55 Not Available [facility] ([facility]) [address] [place], [address], 10/01/2023 07:08:23 09/19/20 23 09/20/2023 FE+TI BC+FE R ferritin 86 NG/mL 15-150 Not Available [facility] ([facility]) [address] [facility], [place], [address], 10/01/2023 07:08:23 09/19/20 23 09/24/2023 VITAM IN A AND E vitamin A 26.7 ug/dL 20.1-6 2.0 Refer ence inter vals for vitam in A deter mined from [facility] inter nal studi es. Indiv idual s with vitam in A less than 20 ug/dL are consi dered vitam in A defic ient and those with serum rema ntrat ions less than 10 ug/dL are consi dered sever seema defic ient. This test was devel oped and its perfo rmanc e gela cteri stics deter mined by [facility] . It has not been clear ed or appro juan ramon by the Food and Drug Admin istra tion. Not Available [facility] ([facility]) [address] [facility], [place], [address], 10/01/2023 07:08:23 09/19/20 23 09/24/2023 VITAM IN A AND E vitamin E(alpha tocopherol) 15.2 mg/L 7.0-25 .1 Not Available [facility] ([facility]) [address] [facility], [place], [address], 10/01/2023 07:08:23 09/19/20 23 09/24/2023 VITAM IN A AND E vitamin E(gamma tocopherol) 1.0 mg/L 0.5-5. 5 Refer ence inter vals for alpha and gamma -toco phero l deter mined from [facility] Exami natio n Surve y, 2004- 2005. Indiv idual s with alpha -toco phero l level s less than 5.0 mg/L are consi dered vitam in E defic ient. Not Available [facility] ([facility]) [address] [facility] [place], [address], 10/01/2023 07:08:23 09/19/20 23 09/20/2023 COMP. METAB OLIC PANEL (14) glucose 100 mg/dL 70-99 above high normal Not Available [facility] ([facility]) [address] [facility] [place], [address], 10/01/2023 07:08:24 09/19/20 23 09/20/2023 COMP. METAB OLIC PANEL (14) BUN 9 mg/dL 6-24 Not Available [facility] ([facility]) [address] [facility] [place], [address], 10/01/2023 07:08:24 09/19/20 23 09/20/2023 COMP. METAB OLIC PANEL (14) creatinine 0.72 mg/dL 0.57-1 .00 Not Available [facility] ([facility]) [address] [facility] [place], [address], 10/01/2023 07:08:24 09/19/20 23 09/20/2023 COMP. METAB OLIC PANEL (14) eGFR 104 mL/mi n/1.7 3 >59 Not Available [facility] ([facility]) [address] [facility] [place], [address], 10/01/2023 07:08:24 09/19/20 23 09/20/2023 COMP. METAB OLIC PANEL (14) BUN/creatini ne ratio 13 9-23 Not Available [facility] ([facility]) [address] [facility] [place], [address], 10/01/2023 07:08:24 09/19/20 23 09/20/2023 COMP. METAB OLIC PANEL (14) sodium 141 mmol/ L 134-14 4 Not Available [facility] ([facility]) [address] [place], [address], 10/01/2023 07:08:24 09/19/20 23 09/20/2023 COMP. METAB OLIC PANEL (14) potassium 4.3 mmol/ L 3.5-5. 2 Not Available [facility] ([facility]) [address] [facility], [place], [address], 10/01/2023 07:08:24 09/19/20 23 09/20/2023 COMP. METAB OLIC PANEL (14) chloride 103 mmol/ L 96-106 Not Available [facility] ([facility]) [address] [facility], [place], [address], 10/01/2023 07:08:24 09/19/20 23 09/20/2023 COMP. METAB OLIC PANEL (14) carbon dioxide, total 26 mmol/ L 20-29 Not Available [facility] ([facility]) [address] [facility], [place], [address], 10/01/2023 07:08:24 09/19/20 23 09/20/2023 COMP. METAB OLIC PANEL (14) calcium 9.8 mg/dL 8.7-10 .2 Not Available [facility] ([facility]) [address] [facility], [place], [address], 10/01/2023 07:08:24 09/19/20 23 09/20/2023 COMP. METAB OLIC PANEL (14) protein, total 6.3 g/dL 6.0-8. 5 Not Available [facility] ([facility]) [address] [facility], [place], [address], 10/01/2023 07:08:24 09/19/20 23 09/20/2023 COMP. METAB OLIC PANEL (14) albumin 3.9 g/dL 3.9-4. 9 Not Available [facility] ([facility]) [address] [facility], [place], [address], 10/01/2023 07:08:24 09/19/20 23 09/20/2023 COMP. METAB OLIC PANEL (14) globulin, total 2.4 g/dL 1.5-4. 5 Not Available [facility] ([facility]) [address] [place], [address], 10/01/2023 07:08:24 09/19/20 23 09/20/2023 COMP. METAB OLIC PANEL (14) A/G ratio 1.6 1.2-2. 2 Not Available [facility] ([facility]) [address] [facility], [place], [address], 10/01/2023 07:08:24 09/19/20 23 09/20/2023 COMP. METAB OLIC PANEL (14) bilirubin, total 0.2 mg/dL 0.0-1. 2 Not Available [facility] ([facility]) [address] [place], [address], 10/01/2023 07:08:24 09/19/20 23 09/20/2023 COMP. METAB OLIC PANEL (14) alkaline phosphatase 110 IU/L 44-121 Not Available [facility] ([facility]) [address] [place], [address], 10/01/2023 07:08:24 09/19/20 23 09/20/2023 COMP. METAB OLIC PANEL (14) AST (SGOT) 17 IU/L 0-40 Not Available [facility] ([facility]) [address] [place], [address], 10/01/2023 07:08:24 09/19/20 23 09/20/2023 COMP. METAB OLIC PANEL (14) ALT (SGPT) 16 IU/L 0-32 Not Available [facility] ([facility]) [address] [place], [address], 10/01/2023 07:08:24 09/19/20 23 09/20/2023 CBC, PLATE LET, NO DIFFE RENTI AL WBC 13.3 x10e3 /uL 3.4-10 .8 above high normal Not Available [facility] ([facility]) [address] [facility], [place], [address], 10/01/2023 07:08:25 09/19/20 23 09/20/2023 CBC, PLATE LET, NO DIFFE RENTI AL RBC 4.63 x10e6 /uL 3.77-5 .28 Not Available [facility] ([facility]) [address] [facility], [place], [address], 10/01/2023 07:08:25 09/19/2009/20/2023 CBC, PLATE LET, NO DIFFE RENTI AL hemoglobin 13.3 g/dL 11.1-1 5.9 Not Available [facility] ([facility]) [address] [facility], [place], [address], 10/01/2023 07:08:25 09/19/20 23 09/20/2023 CBC, PLATE LET, NO DIFFE RENTI AL hematocrit 40.2 % 34.0-4 6.6 Not Available [facility] ([facility]) [address] [facility], [place], [address], 10/01/2023 07:08:25 09/19/20 23 09/20/2023 CBC, PLATE LET, NO DIFFE RENTI AL MCV 87 fL 79-97 Not Available [facility] ([facility]) [address] [place], [address], 10/01/2023 07:08:25 09/19/2009/20/2023 CBC, PLATE LET, NO DIFFE RENTI AL MCH 28.7 pg 26.6-3 3.0 Not Available [facility] ([facility]) [address] [place], [address], 10/01/2023 07:08:25 09/19/20 23 09/20/2023 CBC, PLATE LET, NO DIFFE RENTI AL MCHC 33.1 g/dL 31.5-3 5.7 Not Available [facility] ([facility]) [address] [facility], [place], [address], 10/01/2023 07:08:25 09/19/20 23 09/20/2023 CBC, PLATE LET, NO DIFFE RENTI AL RDW 14.3 % 11.7-1 5.4 Not Available [facility] ([facility]) [address] [facility], [place], [address], 10/01/2023 07:08:25 09/19/20 23 09/20/2023 CBC, PLATE LET, NO DIFFE RENTI AL platelets 340 x10e3 /uL 150-45 0 Not Available [facility] ([facility]) [address] [facility], [place], [address], 10/01/2023 07:08:25 09/19/2009/20/2023 CBC, PLATE LET, NO DIFFE RENTI AL NRBC 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 Not Available [facility] ([facility]) [address] [facility], [place], [address], 10/01/2023 07:08:26 09/19/20 23 09/20/2023 VITAM IN D, 25-HY DROXY vitamin D, 25-hydroxy 62.6 NG/mL 30.0-1 00.0 Vitam in D defic iency has been defin ed by the Insti tute of Medic ine and an Endoc rine Socie ty pract ice guide line as a level of serum 25-OH vitam in D less than 20 ng/mL (1,2) . The Endoc rine Socie ty went on to furth er defin e vitam in D insuf ficie ncy as a level betwe en 21 and 29 ng/mL (2). 1. IOM (Inst itute of Medic ine). 2010. Dieta ry refer ence konstantin es for calci um and D. [place]: [facility] . 2. Carlo lawson [place], Itz johnson [place], Gifty off-F errar i LILLY, et al. Evalu ation , treat ment, and preve ntion of vitam in D defic iency : an Endoc rine Socie ty clini tracy pract ice guide line. JCEM. 2010; 96(7) :1911 -30. Not Available [facility] ([facility]) [address] [place], [address], 10/01/2023 07:08:27 09/19/20 23 09/22/2023 CAROT JUSTIN, BETA carotene, beta 2 ug/dL 3-91 below low normal Not Available [facility] ([facility]) [address] [place], [address], 10/01/2023 07:08:27 09/19/20 23 09/30/2023 COPPE R, SERUM OR PLASM A copper, serum or plasma 151 ug/dL 80-158 Detec tion Limit = 5 Not Available [facility] ([facility]) [address] [place], [address], 10/01/2023 07:08:28 09/19/20 23 09/30/2023 ZINC, PLASM A OR SERUM zinc, plasma or serum 65 ug/dL 44-115 Detec tion Limit = 5 Not Available [facility] ([facility]) [address], [place], [address], 10/01/2023 07:08:29 03/21/20 24 03/21/2024 CBC AUTO NO DIFF (HEMO GRAM) WBC 13.8 K/uL 4.0-10 .5 high Not Available [facility] ([facility]) [address] [facility], [place], [address], 03/21/2024 15:46:31 03/21/20 24 03/21/2024 CBC AUTO NO DIFF (HEMO GRAM) RBC 4.7 M/mm3 4.2-6. 4 Not Available [facility] ([facility]) [address] [facility], [place], [address], 03/21/2024 15:46:31 03/21/20 24 03/21/2024 CBC AUTO NO DIFF (HEMO GRAM) HGB 12.8 gm/dL 12.5-1 6.0 Not Available [facility] ([facility]) [address] [facility], [place], [address], 03/21/2024 15:46:31 03/21/20 24 03/21/2024 CBC AUTO NO DIFF (HEMO GRAM) HCT 40.3 % 37.0-4 7.0 Not Available [facility] ([facility]) [address] [facility], [place], [address], 03/21/2024 15:46:31 03/21/20 24 03/21/2024 CBC AUTO NO DIFF (HEMO GRAM) MCV 86.7 fL 78-100 Not Available [facility] ([facility]) [address] [place], [address], 03/21/2024 15:46:31 03/21/20 24 03/21/2024 CBC AUTO NO DIFF (HEMO GRAM) MCH 27.5 pg 27-31 Not Available [facility] ([facility]) [address] [facility] [place], [address], 03/21/2024 15:46:31 03/21/20 24 03/21/2024 CBC AUTO NO DIFF (HEMO GRAM) MCHC 31.8 g/dL 32-36 low Not Available [facility] ([facility]) [address], [place], [address], 03/21/2024 15:46:31 03/21/20 24 03/21/2024 CBC AUTO NO DIFF (HEMO GRAM) RDW 15.9 % 11.5-1 4.0 high Not Available [facility] ([facility]) [address], [place], [address], 03/21/2024 15:46:31 03/21/20 24 03/21/2024 CBC AUTO NO DIFF (HEMO GRAM) platelet count 343 K/uL 150-45 0 Not Available [facility] ([facility]) [address], [place], [address], 03/21/2024 15:46:31 03/21/20 24 03/21/2024 CBC AUTO NO DIFF (HEMO GRAM) MPV 9.7 fL 6-9.5 high Not Available [facility] ([facility]) [address], [place], [address], 03/21/2024 15:46:31 03/21/20 24 03/21/2024 CBC AUTO NO DIFF (HEMO GRAM) manual differential NO Not Available [facility] ([facility]) [address], [place], [address], 03/21/2024 15:46:31 03/21/20 24 03/21/2024 IRON STUDY (IRON /TIBC /%SAT ) iron 28 mcg/m L 40-180 low Not Available [facility] ([facility]) [address] [place], [address], 03/21/2024 16:38:09 03/21/20 24 03/21/2024 IRON STUDY (IRON /TIBC /%SAT ) TIBC 304 mcg/d L 250-45 0 Not Available [facility] ([facility]) [address], [place], [address], 03/21/2024 16:38:09 03/21/20 24 03/21/2024 IRON STUDY (IRON /TIBC /%SAT ) %sat 9 15-55 low Not Available [facility] ([facility]) [address], [place], [address], 03/21/2024 16:38:09 03/21/20 24 03/21/2024 COMP METAB OLIC PANEL sodium 139 mmol/ L 136-14 5 Not Available [facility] ([facility]) [address], [place], [address], 03/21/2024 17:04:08 03/21/20 24 03/21/2024 COMP METAB OLIC PANEL potassium 3.9 mmol/ L 3.6-5. 0 Not Available [facility] ([facility]) [address] [place], [address], 03/21/2024 17:04:08 03/21/20 24 03/21/2024 COMP METAB OLIC PANEL chloride 103 mmol/ L 98-107 Not Available [facility] ([facility]) [address] [place], [address], 03/21/2024 17:04:08 03/21/20 24 03/21/2024 COMP METAB OLIC PANEL carbon dioxide 24.9 mmol/ L 21.0-3 2.0 Not Available [facility] ([facility]) [address] [place], [address], 03/21/2024 17:04:08 03/21/20 24 03/21/2024 COMP METAB OLIC PANEL anion gap 15.0 Not Available [facility] ([facility]) [address] [facility] [place], [address], 03/21/2024 17:04:08 03/21/20 24 03/21/2024 COMP METAB OLIC PANEL glucose 132 mg/dL 70-120 high Not Available [facility] ([facility]) [address], [place], [address], 03/21/2024 17:04:08 03/21/20 24 03/21/2024 COMP METAB OLIC PANEL BUN 12 mg/dL 7-18 Not Available [facility] ([facility]) [address], [place], [address], 03/21/2024 17:04:08 03/21/20 24 03/21/2024 COMP METAB OLIC PANEL creatinine 0.7 mg/dL 0.6-1. 3 Not Available [facility] ([facility]) [address], [place], [address], 03/21/2024 17:04:08 03/21/20 24 03/21/2024 COMP METAB OLIC PANEL glomerular filtration rate >60 mlper min 60- Not Available [facility] ([facility]) [address], [place], [address], 03/21/2024 17:04:08 03/21/20 24 03/21/2024 COMP METAB OLIC PANEL total protein 6.4 g/dL 6.4-8. 2 Not Available [facility] ([facility]) [address], [place], [address], 03/21/2024 17:04:08 03/21/20 24 03/21/2024 COMP METAB OLIC PANEL albumin 3.3 g/dL 3.4-5. 0 low Not Available [facility] ([facility]) [address], [place], [address], 03/21/2024 17:04:08 03/21/20 24 03/21/2024 COMP METAB OLIC PANEL globulin 3.1 Not Available [facility] ([facility]) [address], [place], [address], 03/21/2024 17:04:08 03/21/20 24 03/21/2024 COMP METAB OLIC PANEL alb/glob ratio 1.1 0.7-2 Not Available [facility] ([facility]) [address], [place], [address], 03/21/2024 17:04:08 03/21/20 24 03/21/2024 COMP METAB OLIC PANEL calcium 9.3 mg/dL 8.5-10 .5 Not Available [facility] ([facility]) [address] , [place], [address], 03/21/2024 17:04:08 03/21/20 24 03/21/2024 COMP METAB OLIC PANEL bilirubin total 0.30 mg/dL 0.10-1 .00 Not Available [facility] ([facility]) [address] , [place], [address], 03/21/2024 17:04:08 03/21/20 24 03/21/2024 COMP METAB OLIC PANEL AST (SGOT) 13 U/L 0-37 Not Available [facility] ([facility]) [address] , [place], [address], 03/21/2024 17:04:08 03/21/20 24 03/21/2024 COMP METAB OLIC PANEL ALT (SGPT) 23 U/L 0-65 Not Available [facility] ([facility]) [address] , [place], [address], 03/21/2024 17:04:08 03/21/20 24 03/21/2024 COMP METAB OLIC PANEL alk phosphatase 129 U/L 46-116 high Not Available [facility] ([facility]) [address] , [place], [address], 03/21/2024 17:04:08 03/21/20 24 03/21/2024 DONATO TIN ferritin, serum 35 NG/mL 3-244 Not Available [facility] ([facility]) [address] [facility], [place], [address], 03/21/2024 17:04:10 03/21/20 24 03/21/2024 VITAM IN D, 25-HY DROXY vitamin D, 25-hydroxy 49.3 NG/mL 30.0-1 00.0 Not Available [facility] ([facility]) [address] [facility], [place], [address], 03/21/2024 17:19:33 03/21/20 24 03/21/2024 VITAM IN B12 vitamin B12 764 pg/mL 193-98 6 *Note : Refer alis Irwin. New Test Metho d in use. Not Available [facility] ([facility]) [address] [facility], [place], [address], 03/21/2024 18:29:45 03/21/20 24 03/21/2024 VITAM IN B12 folate (folic acid), serum 20.2 NG/mL 8.6-58 .9 *Note : Refer alis Irwin. New Test Metho d in use. Not Available [facility] ([facility]) [address] [facility], [place], [address], 03/21/2024 18:29:45 03/21/20 24 03/22/2024 IKE C DISEA SE COMPR EHENS GABY deamidated gliadin Ab, IgA 59 units 0-19 high Negat gaby 0 - 19 Weak Posit gaby 20 - 30 Moder ate to Stron g Posit gaby >30 Not Available [facility] ([facility]) [address] [place], [address], 03/22/2024 17:10:49 03/21/20 24 03/22/2024 IKE C DISEA SE COMPR EHENS GABY deamidated gliadin Ab, IgG 32 units 0-19 high Negat gaby 0 - 19 Weak Posit gaby 20 - 30 Moder ate to Stron g Posit gaby >30 Not Available [facility] ([facility]) [address] [facility], [place], [address], 03/22/2024 17:10:49 03/21/20 24 03/22/2024 IKE C DISEA SE COMPR EHENS GABY IgA 208 mg/dL 87-352 Perfo rmed at: CB - [facility] n [address] [facility], [place] [address] Lab Direc tor: Edi morrison PhD, Phone : [phone] Not Available [facility] ([facility]) [address] [facility], [place], [address], 03/22/2024 17:10:49 03/21/20 24 03/22/2024 IKE C DISEA SE COMPR EHENS GABY T-transgluta minase (ttg), IgA 16 U/mL 0-3 high Negat gaby 0 - 3 Weak Posit gaby 4 - 10 Posit gaby >10 . Tissu e Trans gluta josé manuel e (tTG) has been ident ified as the endom ysial antig en. Studi es have demon str- ated that endom ysial IgA antib odies have over 99% speci ficit y for glute n sensi tive enter opath y. Not Available [facility] ([facility]) [address] [facility], [place], [address], 03/22/2024 17:10:49 03/21/20 24 03/22/2024 IKE C DISEA SE COMPR EHENS GABY T-transgluta minase (ttg), IgG 4 U/mL 0-5 Negat gaby 0 - 5 Weak Posit gaby 6 - 9 Posit gaby >9 Not Available [facility] ([facility]) [address] [facility], [place], [address], 03/22/2024 17:10:49 03/21/20 24 03/22/2024 IKE C DISEA SE COMPR EHENS GABY endomysial Ab, IgA Positi ve negati ve delta Not Available [facility] ([facility]) [address] [facility], [place], [address], 03/22/2024 17:10:49 03/21/20 24 03/23/2024 COPPE R BLOOD copper, serum plasma 131 ug/dL 80-158 Speci men Comme nt: Test( s) 21966 6-Lawyer per, Serum or Plasm a Speci men Comme nt: was devel oped and its perfo rmanc e gela cte risti cs Speci men Comme nt: deter mined by [facility]. It has not been michelle ared or appro juan ramon Speci men Comme nt: by the Food and Drug Admin istra tion. Detec tion Limit = 5 Perfo rmed at: [facility] [address] [address] Lab Direc tor: Letty garces MD, Phone : [phone] Not Available [facility] ([facility]) [address] [facility], [place], [address], 03/23/2024 08:20:55 03/21/20 24 03/23/2024 ZINC BLOOD zinc, plasma or serum 57 ug/dL 44-115 Speci men Comme nt: Test( s) 56949 0-Zin c, Plasm a or Serum Speci men Comme nt: was devel oped and its perfo rmanc e gela cte risti cs Speci men Comme nt: deter mined by [facility]. It has not been michelle ared or appro juan ramon Speci men Comme nt: by the Food and Drug Admin istra tion. Detec tion Limit = 5 Perfo rmed at: [facility] [address] [address] Lab Direc tor: Letty garces MD, Phone : [phone] Not Available [facility] ([facility]) [address] [facility], [place], [address], 03/23/2024 08:20:56 03/21/20 24 03/26/2024 VITAM IN A vitamin A, serum 25.7 ug/dL 20.1-6 2.0 Refer ence inter vals for vitam in A deter mined from [facility] inter nal studi es. Indiv idual s with vitam in A less than 20 ug/dL are consi dered vitam in A defic ient and those with serum rema ntrat ions less than 10 ug/dL are consi dered sever seema defic ient. . This test was devel oped and its perfo rmanc e gela cteri stics deter mined by [facility]. It has not been clear ed or appro juan ramon by the Food and Drug Admin istra tion. Perfo rmed at: [facility] [place] [address] [facility] [place] [address] Lab Direc tor: Letty garces MD, Phone : [phone] Not Available [facility] ([facility]) [address] [facility], [place], [address], 03/26/2024 17:26:35 03/21/20 24 03/26/2024 VITAM IN E vitamin E(alpha tocopherol) 12.8 mg/L 7.0-25 .1 Not Available [facility] ([facility]) [address] [facility], [place], [address], 03/26/2024 17:26:36 03/21/20 24 03/26/2024 VITAM IN E vitamin E(gamma tocopherol) 0.9 mg/L 0.5-5. 5 Refer ence inter vals for alpha and gamma -toco phero l deter mined from [facility] and Nutri tion Exami natio n Surve y, 2004- 2005. Indiv idual s with alpha -toco phero l level s less than 5.0 mg/L are consi dered vitam in E defic ient. Perfo rmed at: [facility] [place] [address] [facility] [place] [address] Lab Direc tor: Letty garces MD, Phone : [phone] Not Available [facility] ([facility]) [address] [place], [address], 03/26/2024 17:26:36 03/21/20 24 03/30/2024 CAROT JUSTIN, BETA carotene, beta 2 ug/dL 3-91 low Perfo rmed at: BN - [facility] [place] [address] [place] [address] Lab Direc tor: Letty garces MD, Phone : [phone] Not Available [facility] ([facility]) [address] [facility], [place], [address], 03/30/2024 06:14:59 06/14/20 25 06/14/2025 CBC NO DIFF (HEMO GRAM) WBC 12.4 K/uL 4.0-10 .5 high Not Available [facility] ([facility]) [address] [facility], [place], [address], 06/14/2025 15:42:01 06/14/20 25 06/14/2025 CBC NO DIFF (HEMO GRAM) RBC 4.8 M/mm3 4.2-6. 4 Not Available [facility] ([facility]) [address] [facility], [place], [address], 06/14/2025 15:42:01 06/14/20 25 06/14/2025 CBC NO DIFF (HEMO GRAM) HGB 13.1 gm/dL 12.5-1 6.0 Not Available [facility] ([facility]) [address] [place], [address], 06/14/2025 15:42:01 06/14/20 25 06/14/2025 CBC NO DIFF (HEMO GRAM) HCT 41.9 % 37.0-4 7.0 Not Available [facility] ([facility]) [address] [place], [address], 06/14/2025 15:42:01 06/14/20 25 06/14/2025 CBC NO DIFF (HEMO GRAM) MCV 87.7 fL 78-100 Not Available [facility] ([facility]) [address], [place], [address], 06/14/2025 15:42:01 06/14/20 25 06/14/2025 CBC NO DIFF (HEMO GRAM) MCH 27.4 pg 27-31 Not Available [facility] ([facility]) [address], [place], [address], 06/14/2025 15:42:01 06/14/20 25 06/14/2025 CBC NO DIFF (HEMO GRAM) MCHC 31.3 g/dL 32-36 low Not Available [facility] ([facility]) [address], [place], [address], 06/14/2025 15:42:01 06/14/20 25 06/14/2025 CBC NO DIFF (HEMO GRAM) RDW 17.3 % 11.5-1 4.0 high Not Available [facility] ([facility]) [address], [place], [address], 06/14/2025 15:42:01 06/14/20 25 06/14/2025 CBC NO DIFF (HEMO GRAM) platelet count 281 K/uL 150-45 0 Not Available [facility] ([facility]) [address], [place], [address], 06/14/2025 15:42:01 06/14/20 25 06/14/2025 CBC NO DIFF (HEMO GRAM) MPV 10.2 fL 6-9.5 high Not Available [facility] ([facility]) [address], [place], [address], 06/14/2025 15:42:01 06/14/20 25 06/14/2025 COMP METAB OLIC PANEL sodium 145 mmol/ L 136-14 5 Not Available [facility] ([facility]) [address], [place], [address], 06/14/2025 16:09:05 06/14/20 25 06/14/2025 COMP METAB OLIC PANEL potassium 4.0 mmol/ L 3.6-5. 0 Not Available [facility] ([facility]) [address] [place], [address], 06/14/2025 16:09:05 06/14/20 25 06/14/2025 COMP METAB OLIC PANEL chloride 105 mmol/ L 98-107 Not Available [facility] ([facility]) [address], [place], [address], 06/14/2025 16:09:05 06/14/20 25 06/14/2025 COMP METAB OLIC PANEL carbon dioxide 31.9 mmol/ L 21.0-3 2.0 Not Available [facility] ([facility]) [address], [place], [address], 06/14/2025 16:09:05 06/14/20 25 06/14/2025 COMP METAB OLIC PANEL anion gap 12.1 Not Available [facility] ([facility]) [address] [place], [address], 06/14/2025 16:09:05 06/14/20 25 06/14/2025 COMP METAB OLIC PANEL glucose 162 mg/dL 70-120 high Not Available [facility] ([facility]) [address] [place], [address], 06/14/2025 16:09:05 06/14/20 25 06/14/2025 COMP METAB OLIC PANEL BUN 12 mg/dL 7-18 Not Available [facility] ([facility]) [address] [place], [address], 06/14/2025 16:09:05 06/14/20 25 06/14/2025 COMP METAB OLIC PANEL creatinine 1.1 mg/dL 0.6-1. 3 Not Available [facility] ([facility]) [address], [place], [address], 06/14/2025 16:09:05 06/14/20 25 06/14/2025 COMP METAB OLIC PANEL glomerular filtration rate 62 mlper min 60- GFR LIMIT ATION : The eGFR equat ion CKD-E PI 2020 is not appli cable for pedia tric patie nts or great er than 90 years of age. The follo wing condi tions may alter the GFR resul t: extre mes in body size, malnu triti on or obesi ty, skele nicole muscl e disea se, parap legia or quadr ipleg ia, veget ray diet or rapid ly subramanian ing kiney funct ion. Not Available [facility] ([facility]) [address], [place], [address], 06/14/2025 16:09:05 06/14/20 25 06/14/2025 COMP METAB OLIC PANEL osmolality (calculated) 304 mOsm/ kg 275-30 1 high OSMOL ALITY IS A CALCU LATIO N UTILI ZING THE SERUM /PLAS MA SODIU M, GLUCO SE AND UREA NITRO GEN (BUN) LEVEL S. FOR THE MOST ACCUR ATE RESUL T A MEASU RED SERUM OSMOL ALITY IS SUGVENU SAMAYOAD. Not Available [facility] ([facility]) [address], [place], [address], 06/14/2025 16:09:05 06/14/20 25 06/14/2025 COMP METAB OLIC PANEL total protein 6.5 g/dL 6.4-8. 2 Not Available [facility] ([facility]) [address], [place], [address], 06/14/2025 16:09:05 06/14/20 25 06/14/2025 COMP METAB OLIC PANEL albumin 3.1 g/dL 3.4-5. 0 low Not Available [facility] ([facility]) [address], [place], [address], 06/14/2025 16:09:05 06/14/20 25 06/14/2025 COMP METAB OLIC PANEL globulin 3.4 Not Available [facility] ([facility]) [address] [place], [address], 06/14/2025 16:09:05 06/14/20 25 06/14/2025 COMP METAB OLIC PANEL alb/glob ratio 0.9 0.7-2 Not Available [facility] ([facility]) [address], [place], [address], 06/14/2025 16:09:05 06/14/20 25 06/14/2025 COMP METAB OLIC PANEL calcium 8.9 mg/dL 8.5-10 .5 Not Available [facility] ([facility]) [address], [place], [address], 06/14/2025 16:09:05 06/14/20 25 06/14/2025 COMP METAB OLIC PANEL bilirubin total 0.30 mg/dL 0.10-1 .00 Not Available [facility] ([facility]) [address], [place], [address], 06/14/2025 16:09:05 06/14/20 25 06/14/2025 COMP METAB OLIC PANEL AST (SGOT) 11 U/L 0-37 Not Available [facility] ([facility]) [address] [place], [address], 06/14/2025 16:09:05 06/14/20 25 06/14/2025 COMP METAB OLIC PANEL ALT (SGPT) 30 U/L 0-65 Not Available [facility] ([facility]) [address] [place], [address], 06/14/2025 16:09:05 06/14/20 25 06/14/2025 COMP METAB OLIC PANEL alk phosphatase 119 U/L 46-116 high Not Available [facility] ([facility]) [address], [place], [address], 06/14/2025 16:09:05 06/14/20 25 06/14/2025 DONATO TIN ferritin, serum 31 NG/mL 3-244 Not Available [facility] ([facility]) [address], [place], [address], 06/14/2025 16:09:08 06/14/20 25 06/14/2025 IRON STUDY (IRON /TIBC /%SAT ) iron 38 mcg/m L 40-180 low Not Available [facility] ([facility]) [address], [place], [address], 06/14/2025 17:13:13 06/14/20 25 06/14/2025 IRON STUDY (IRON /TIBC /%SAT ) TIBC 328 mcg/d L 250-45 0 Not Available [facility] ([facility]) [address] [place], [address], 06/14/2025 17:13:13 06/14/20 25 06/14/2025 IRON STUDY (IRON /TIBC /%SAT ) %sat 12 15-55 low Not Available [facility] ([facility]) [address] [place], [address], 06/14/2025 17:13:13 06/14/20 25 06/14/2025 VITAM IN D, 25-HY DROXY vitamin D, 25-hydroxy 43.4 NG/mL 30.0-1 00.0 Not Available [facility] ([facility]) [address] [place], [address], 06/14/2025 17:23:58 06/14/20 25 06/14/2025 VITAM IN B12 vitamin B12 694 pg/mL 193-98 6 *Note : Refer ence Inter maria guadalupe tirado. New Test Metho d in use. Not Available [facility] ([facility]) [address], [place], [address], 06/14/2025 17:23:59 06/14/20 25 06/14/2025 VITAM IN B12 folate (folic acid), serum 2.3 NG/mL 8.6-58 .9 low *Note : Refer ence Inter maria guadalupe Subramanian e. New Test Metho d in use. Not Available [facility] ([facility]) [address], [place], [address], 06/14/2025 17:23:59 06/14/20 25 06/17/2025 IKE C DISEA SE COMPR EHENS GABY deamidated gliadin Ab, IgA 9 units 0-19 Negat gaby 0 - 19 Weak Posit gaby 20 - 30 Moder ate to Stron g Posit gaby >30 Not Available [facility] ([facility]) [address] [facility], [place], [address], 06/17/2025 15:12:20 06/14/20 25 06/17/2025 IKE C DISEA SE COMPR EHENS GABY deamidated gliadin Ab, IgG 5 units 0-19 Negat gaby 0 - 19 Weak Posit gaby 20 - 30 Moder ate to Stron g Posit gaby >30 Not Available [facility] ([facility]) [address], [place], [address], 06/17/2025 15:12:20 06/14/20 25 06/17/2025 IKE C DISEA SE COMPR EHENS GABY IgA 210 mg/dL 87-352 Perfo rmed at: CB - [facility] [address] [place] [address] [facility] Lab Direc tor: Edi morrison PhD, Phone : [phone] Not Available [facility] ([facility]) [address] [facility], [place], [address], 06/17/2025 15:12:20 06/14/20 25 06/17/2025 IKE C DISEA SE COMPR EHENS GABY T-transgluta minase (ttg), IgA 3 U/mL 0-3 Negat gaby 0 - 3 Weak Posit gaby 4 - 10 Posit gaby >10 . Tissu e Trans gluta josé manuel e (tTG) has been ident ified as the endom ysial antig en. Studi es have demon str- ated that endom ysial IgA antib odies have over 99% speci ficit y for glute n sensi tive enter opath y. Not Available [facility] ([facility]) [address] [facility], [place], [address], 06/17/2025 15:12:20 06/14/20 25 06/17/2025 IKE C DISEA SE COMPR EHENS GABY T-transgluta minase (ttg), IgG 5 U/mL 0-5 Negat gaby 0 - 5 Weak Posit gaby 6 - 9 Posit gaby >9 Not Available [facility] ([facility]) [address] [facility], [place], [address], 06/17/2025 15:12:20 06/14/20 25 06/17/2025 IKE C DISEA SE COMPR EHENS GABY endomysial Ab, IgA NEGATI VE negati ve Not Available [facility] ([facility]) [address] [facility], [place], [address], 06/17/2025 15:12:20 06/14/20 25 06/18/2025 ZINC BLOOD zinc, plasma or serum 56 ug/dL 44-115 Speci men Comme nt: Test( s) 28270 0-Zin c, Plasm a or Serum Speci men Comme nt: was devel oped and its perfo rmanc e gela cte risti cs Speci men Comme nt: deter mined by [facility]. It has not been michelle ared or appro juan ramon Speci men Comme nt: by the Food and Drug Admin istra tion. Detec tion Limit = 5 Perfo rmed at: [facility] [address] [place] [address] Lab Dire tor: Letty garces MD, Phone : [phone] Not Available [facility] ([facility]) [address] [facility], [place], [address], 06/18/2025 17:12:39 06/14/20 25 06/20/2025 COPPE R BLOOD copper, serum plasma 104 ug/dL 80-158 Speci men Comme nt: Test( s) 43845 6-Lawyer per, Serum or Plasm a Speci men Comme nt: was devel oped and its perfo rmanc e gela cte risti cs Speci men Comme nt: deter mined by [employer]. It has not been michelle ared or appro juan ramon Speci men Comme nt: by the Food and Drug Admin istra tion. Detec tion Limit = 5 Perfo rmed at: [facility] [address] [address] Lab Dire tor: Letty garces MD, Phone : [phone] Not Available [facility] ([facility]) [address] [facility], [place], [address], 06/20/2025 06:11:52 06/14/20 25 06/20/2025 VITAM IN A vitamin A, serum 26.6 ug/dL 20.1-6 2.0 Refer ence inter vals for vitam in A deter mined from [facility] inter nal studi es. Indiv idual s with vitam in A less than 20 ug/dL are consi dered vitam in A defic ient and those with serum rema ntrat ions less than 10 ug/dL are consi dered sever seema defic ient. . This test was devel oped and its perfo rmanc e gela cteri stics deter mined by [employer] [facility]. It has not been clear ed or appro juan ramon by the Food and Drug Admin istra tion. Perfo rmed at: BN - [facility] [place] [address] [place] [address] Lab Direc tor: Letty garces MD, Phone : [phone] Not Available [facility] ([facility]) [address], [place], [address], 06/20/2025 06:11:54 06/14/20 25 06/20/2025 VITAM IN E vitamin E(alpha tocopherol) 33.9 mg/L 7.0-25 .1 high Not Available [facility] ([facility]) [address], [place], [address], 06/20/2025 06:11:56 06/14/20 25 06/20/2025 VITAM IN E vitamin E(gamma tocopherol) 1.4 mg/L 0.5-5. 5 Refer ence inter vals for alpha and gamma -toco phero l deter mined from [facility] and Nutri tion Exami natio n Surve y, 2004- 2005. Indiv idual s with alpha -toco phero l level s less than 5.0 mg/L are consi dered vitam in E defic ient. Perfo rmed at: - [facility] [place] [address] [place] [address] Lab Direc tor: Letty garces MD, Phone : [phone] Not Available [facility] ([facility]) [address], [place], [address], 06/20/2025 06:11:56 06/14/20 25 06/20/2025 CAROT JUSTIN, BETA carotene, beta <1 ug/dL 3-91 low Liudmila ified by repea t mahin sis Perfo rmed at: - [facility] [address] [place] [id number] Lab Direc tor: Letty garces MD, Phone : [phone] Not Available [facility] ([facility]) [address], [place], [address], 06/20/2025 10:12:16 Result Notes None recorded. Problems Name Problem SNOMED Code Status Onset Date Resolution Date Notes Provider Name and Address Organization Details Recorded Time Chronic constipation 808672482 Active 2022 Riri Anderson null, [place] [facility] & [place] 3 09:17:43 Right inguinal hernia 948310269 Active 2022 Riri [place] null, [place] [facility] [place] [facility] [place] 3 09:18:04 Weight management program Active 2022 Riri [place] null, [place] [facility] [place] & [place] 3 09:18:16 Asthma 591547753 Active 2022 Riri [place] null, [place] [facility] [place] [facility] [place] 3 09:18:51 Chronic obstructive pulmonary disease 70406014 Active 2022 Ririrashaad Anderson null, [place] - [facility] - [facility] & [place] 3 09:18:58 Depressive disorder 23503280 Active 2022 Riri [place] null, [place] [facility] - [facility] & [place] 3 09:19:37 Anxiety 28336440 Active 2022 Riri [place] null, [place] [facility] [place] & [place] 3 09:19:42 Chronic idiopathic constipation 21103702 Active 2022 Loyd Allen PA-C [address], [place], [address] , [place] - [facility] - [facility] & [place] 3 09:43:32 Upper abdominal pain 19536290 Active 2022 Loyd Allen PA-C [address], [place], [address] , [place] [facility] & [place] 3 09:43:40 Excessive belching 825686797 Active 2022 Loyd Allen PA-C [address], [place], [address] , [place] [facility] & [place] 3 09:43:52 Heartburn 22107148 Active [address], [facility] [address] , [place] - [facility] & [place] 3 09:43:58 Celiac disease 409919787 Active [address], [place] [address] , [place] - [facility] & [place] 3 10:06:52 Helicobacter pylori gastrointesti nal tract infection 535657417 Active [address], [facility] [address] , [place] - [facility] & [place] 3 10:44:33 Vitamin E deficiency 32789002 Active [address], [facility] [address] , [place] - [facility] & [place] 3 09:44:58 Folic acid deficiency 998503235 Active [address] , [facility] [address] , [place] - [facility] & [place] 5 15:57:53 Paresthesia of lower extremity 001689798 Active [address], [facility] [address] , [place] - [facility] & [place] 4 13:26:52 Problem Notes None recorded. Procedures Surgical History Date Name Laterality Status Provider Name and Address Organization Details Recorded Time 04/19/20 EMG/ Nerve Conduction Study completed DO [address], [place], [address], [place] - [facility] & [place] 04/19/2024 13:26:45 Hysterectomy completed Riri Anderson [place] - [facility] & [place] 02/01/2023 09:29:15 excision of mass completed Riri [facility] [facility]23 09:32:34 Imaging Results None recorded. Procedure Notes None recorded. Medical Equipment None Reported. Allergies Allergen ID Allergen Name Allergen Category Reaction Reaction Severity Criticality Documentation Date Start Date Code Code System Note Provider Name and Address Organization Details Recorded Time 36955 Product containin g penicilli n (product) medicatio n Not available Not available Not available 02/01/2023 05637 8001 SNOMED DALILA Clifford [facility] & [place] 3 09:13:04 67692 doxycycli ne Not available Not available Not available Not available 02/01/2023 3640 RxNorm DALILA Clifford [facility] & [place] 3 09:13:09 11343 aspirin medicatio n Not available Not available Not available 02/01/2023 1191 RxNorm DALILA Clifford [facility] & [place] 3 09:13:20 79588 Valium medicatio n Not available Not available Not available 02/01/2023 39906 2 RxNorm DALILA Clifford [facility] & [place] 3 09:13:40 51875 Xanax medicatio n Not available Not available Not available 02/01/2023 80382 3 RxNorm DALILA Clifford [facility] & [place] 3 09:13:44 13720 Wellbutri n medicatio n Not available Not available Not available 02/01/2023 90272 RxNorm DALILA Clifford [facility] & [place] 3 09:13:48 Medications Name Sig Start Date Stop Date Status Note LastModified by Organization Details LastModified Time vitamin d3 (magdi) 125mcg cap TAKE 1 CAPSULE BY MOUTH ONCE DAILY active Not Available Not Available No t Available vitamin d3 (magdi) 5,000iu tab TAKE 1 TABLET BY MOUTH ONCE DAILY active Not Available Not Available No t Available tetracyclin e 500 mg capsule TAKE 1 CAPSULE BY MOUTH 4 TIMES DAILY FOR 14 DAYS 06/13 completed Not Available Not Available Not Available metformin 500 mg tablet TAKE 1 TABLET BY MOUTH TWICE DAILY WITH MORNING MEAL AND WITH EVENING MEAL active Not Available Not Available No t Available bupropion HCl SR 150 mg tablet,12 hr sustained-r elease 04/13 completed Not Available Not Available Not Available vitamin E 200 unit capsule Take 1 capsule every day by oral route with meals for 30 days. 2022 active Not Available Not Available Not Avai lable ipratropium 0.5 mg-albutero l 3 mg (2.5 mg base)/3 mL nebulizatio n soln USE 1 AMPULE IN NEBULIZER EVERY 6 HOURS NEEDED FOR SHORTNESS OF BREATH FOR WHEEZING active Not Available Not Available No t Available trazodone 50 mg tablet TAKE 1 TABLET BY MOUTH AT BEDTIME NEEDED FOR INSOMNIA active Not Available Not Available No t Available triamcinolo ne acetonide 0.5 % topical cream APPLY CREAM TOPICALLY ONCE DAILY active Not Available Not Available No t Available azithromyci n 250 mg tablet TAKE 1 TABLET BY MOUTH ONCE DAILY FOR 5 DAYS 06/13 completed Not Available Not Available Not Available metoprolol succinate ER 50 mg tablet,exte nded release 24 hr TAKE 1 TABLET BY MOUTH ONCE DAILY active Not Available Not Available No t Available hydrocodone 5 mg-acetamin ophen 325 mg tablet TAKE 1 TABLET BY MOUTH EVERY 4 HOURS NEEDED FOR MODERATE PAIN 06/13 completed Not Available Not Available Not Available beta carotene 7,500 mcg (25,000 unit) capsule Take 1 capsule every day by oral route with meals for 30 days. 06/13 completed Not Available Not Available Not Available prednisone 20 mg tablet TAKE 2 TABLETS BY MOUTH ONCE DAILY FOR 3 DAYS 06/13 completed Not Available Not Available Not Available metoprolol succinate ER 100 mg tablet,exte nded release 24 hr TAKE 1 TABLET BY MOUTH ONCE DAILY active Not Available Not Available No t Available naproxen 250 mg tablet TAKE 2 TABLETS BY MOUTH TWICE DAILY WITH MEALS 06/13 completed Not Available Not Available Not Available metronidazo le 500 mg tablet TAKE 1 TABLET BY MOUTH 4 TIMES DAILY FOR 7 DAYS 06/13 completed Not Available Not Available Not Available sulfamethox azole 800 mg-trimetho prim 160 mg tablet TAKE 1 TABLET BY MOUTH TWICE DAILY 06/13 completed Not Available Not Available Not Available lamotrigine 25 mg tablet TAKE 1 TABLET BY MOUTH ONCE DAILY AT NIGHT AT BEDTIME DIRECTED active Not Available Not Available No t Available oxycodone-a cetaminophe n 5 mg-325 mg tablet TAKE 1 TABLET BY MOUTH EVERY 4 HOURS NEEDED FOR MODERATE PAIN 4-6 PAIN SCALE 06/13 completed Not Available Not Available Not Available Bismuth 262 mg chewable tablet Take 1 tablet 4 times a day by oral route for 14 days. 2022 active Not Available Not Available Not Avai lable cephalexin 500 mg capsule TAKE 1 CAPSULE BY MOUTH THREE TIMES DAILY 06/10 completed Not Available Not Available Not Available pantoprazol e 40 mg tablet,rashida yed release TAKE 1 TABLET BY MOUTH ONCE DAILY 06/13 completed Not Available Not Available Not Available buspirone 10 mg tablet TAKE 1 TABLET BY MOUTH THREE TIMES DAILY 06/13 completed Not Available Not Available Not Available docusate sodium 100 mg capsule TAKE 1 CAPSULE BY MOUTH TWICE DAILY AT BEDTIME NEEDED 06/13 completed Not Available Not Available Not Available omeprazole 20 mg capsule,del ayed release TAKE 1 CAPSULE BY MOUTH TWICE DAILY FOR 14 DAYS active Not Available Not Available No t Available folic acid 1 mg tablet TAKE 1 TABLET BY MOUTH ONCE DAILY WITH MEALS active Not Available Not Available No t Available montelukast 10 mg tablet TAKE 1 TABLET BY MOUTH ONCE DAILY IN THE EVENING FOR ASTHMA active Not Available Not Available No t Available metoprolol succinate ER 25 mg tablet,exte nded release 24 hr TAKE 1 TABLET BY MOUTH ONCE DAILY 06/13 completed Not Available Not Available Not Available azelastine 137 mcg (0.1 %) nasal spray USE 2 SPRAY(S) IN EACH NOSTRIL AT BEDTIME NIGHTLY FOR 90 DAYS active Not Available Not Available No t Available levofloxaci n 500 mg tablet TAKE 1 TABLET BY MOUTH ONCE DAILY 06/13 completed Not Available Not Available Not Available oxybutynin chloride 5 mg tablet TAKE 1 TABLET BY MOUTH TWICE DAILY 06/13 completed Not Available Not Available Not Available cefdinir 300 mg capsule TAKE 1 CAPSULE BY MOUTH EVERY 12 HOURS 06/13 completed Not Available Not Available Not Available fluticasone propionate 50 mcg/actuati on nasal spray,suspe nsion USE 2 SPRAY(S) IN EACH NOSTRIL ONCE DAILY NEEDED FOR ALLERGY SYMPTOMS active Not Available Not Available No t Available Hibiclens 4 % topical liquid APPLY TOPICALLY ONCE FOR 2 DOSES active Not Available Not Available No t Available loratadine 10 mg tablet TAKE 1 TABLET BY MOUTH ONCE DAILY active Not Available Not Available No t Available naproxen 500 mg tablet TAKE 1 TABLET BY MOUTH TWICE DAILY WITH FOOD active Not Available Not Available No t Available buspirone 15 mg tablet TAKE 1 TABLET BY MOUTH THREE TIMES DAILY DIRECTED active Not Available Not Available No t Available valsartan 160 mg tablet TAKE 1 TABLET BY MOUTH ONCE DAILY 04/13 completed Not Available Not Available Not Available azithromyci n 500 mg tablet TAKE 1 TABLET BY MOUTH ONCE DAILY 04/13 completed Not Available Not Available Not Available escitalopra m 10 mg tablet TAKE 1 TABLET BY MOUTH ONCE DAILY 06/13 completed Not Available Not Available Not Available escitalopra m 20 mg tablet TAKE 1 TABLET BY MOUTH ONCE DAILY DIRECTED 06/13 completed Not Available Not Available Not Available rosuvastati n 20 mg tablet TAKE 1 TABLET BY MOUTH ONCE DAILY active Not Available Not Available No t Available escitalopra m 5 mg tablet TAKE 1 TABLET BY MOUTH ONCE DAILY DIRECTED 06/13 completed Not Available Not Available Not Available nitrofurant oin monohydrate /macrocryst als 100 mg capsule TAKE 1 CAPSULE BY MOUTH EVERY 12 HOURS WITH FOOD 06/10 completed Not Available Not Available Not Available duloxetine 30 mg capsule,del ayed release TAKE 1 CAPSULE BY MOUTH ONCE DAILY DIRECTED 06/13 completed Not Available Not Available Not Available duloxetine 60 mg capsule,del ayed release TAKE 1 CAPSULE BY MOUTH ONCE DAILY DIRECTED active Not Available Not Available No t Available valsartan 320 mg-hydrochl orothiazide 12.5 mg tablet TAKE 1 TABLET BY MOUTH ONCE DAILY active Not Available Not Available No t Available ProAir HFA 90 mcg/actuati on aerosol inhaler INHALE 2 PUFFS BY MOUTH EVERY 6 HOURS NEEDED FOR SHORTNESS OF BREATH OR WHEEZING active Not Available Not Available No t Available Symbicort 160 mcg-4.5 mcg/actuati on HFA aerosol inhaler INHALE 2 PUFFS BY MOUTH TWICE DAILY active Not Available Not Available No t Available FreeStyle Lite Strips USE 1 STRIP TO CHECK GLUCOSE TWICE DAILY active Not Available Not Available No t Available cholecalcif dustin (vitamin D3) 1,250 mcg (50,000 unit) capsule TAKE 1 CAPSULE BY MOUTH ONCE A WEEK 04/13 completed Not Available Not Available Not Available cholecalcif dustin (vitamin D3) 50 mcg (2,000 unit) tablet TAKE 1 TABLET BY MOUTH ONCE DAILY active Not Available Not Available No t Available Gavilyte-C 240 gram-22.72 gram-6.72 gram-5.84 gram oral solution MIX AND TAKE 8 OUNCES BY MOUTH EVERY 15 MINUTES UNTIL EMPTY PER OFFICE DIRECTION S 06/13 completed Not Available Not Available Not Available lamotrigine ER 100 mg tablet,exte nded release 24 hr TAKE 1 TABLET BY MOUTH EVERY NIGHT AT BEDTIME DIRECTED active Not Available Not Available No t Available cholecalcif dustin (vitamin D3) 125 mcg (5,000 unit) tablet TAKE 1 TABLET BY MOUTH ONCE DAILY active Not Available Not Available No t Available lamotrigine ER 50 mg tablet,exte nded release 24 hr TAKE 1 TABLET BY MOUTH ONCE DAILY AT NIGHT AT BEDTIME DIRECTED 06/13 completed Not Available Not Available Not Available Vitamin D3 50 mcg (2,000 unit) capsule TAKE 1 CAPSULE BY MOUTH ONCE DAILY 04/13 completed Not Available Not Available Not Available mirabegron ER 25 mg tablet,exte nded release 24 hr TAKE 1 TABLET BY MOUTH ONCE DAILY active Not Available Not Available No t Available Fiber Therapy (ca polycarboph il) 625 mg tablet TAKE 2 TABLETS BY MOUTH ONCE DAILY active Not Available Not Available No t Available ProAir RespiClick 90 mcg/actuati on breath activated INHALE 2 PUFFS BY MOUTH EVERY 6 HOURS NEEDED FOR SHORTNESS OF BREATH OR WHEEZING active Not Available Not Available No t Available Spiriva Respimat 1.25 mcg/actuati on solution for inhalation INHALE 2 SPRAY(S) BY MOUTH ONCE DAILY 04/13 completed Not Available Not Available Not Available Procto-Med HC 2.5 % topical cream perineal applicator APPLY A THIN LAYER OF CREAM TO AFFECTED AREA(S) 2-4 TIMES DAILY active Not Available Not Available No t Available Linzess 72 mcg capsule TAKE 1 CAPSULE BY MOUTH ONCE DAILY ON AN EMPTY STOMACH AT LEAST 30 MIN BEFORE FIRST MEAL OF THE DAY active Not Available Not Available No t Available Ozempic 1 mg/dose (4 mg/3 mL) subcutaneou s pen injector INJECT 1 MG SUBCUTANE OUSLY ONCE A WEEK 06/13 completed Not Available Not Available Not Available Ozempic 0.25 mg or 0.5 mg (2 mg/3 mL) subcutaneou s pen injector INJECT 0.25MG SUBCUTANE OUSLY ONCE A WEEK active Not Available Not Available No t Available Vitals Date Recorded Body height Body mass index (BMI) Body weight Body temperature Oxygen saturation Oxygen saturation in Arterial blood by Pulse oximetry Heart rate Heart rate Systolic And Diastolic Provider Name and Address Organization Details Last Updated DateTime 4 177.8 cm 46.1 kg/m2 868903. 59 g 97.9 [degF] 98 % 98 % 87 /min 84 /min 102/70 mm[Hg] Mora Siddiqui [facility] & [place] 4 11:05:31 Date Recorded Body height Body mass index (BMI) Body weight Heart rate Systolic And Diastolic Provider Name and Address Organization Details Last Updated DateTime 04/19/2024 177.8 cm 47.9 kg/m2 699330.8 5 g 80 /min 116/68 mm[Hg] Folres Piter [facility] & [place] 04/19/2024 12:57:46 Date Recorded Body height Body mass index (BMI) Body weight Body temperature Oxygen saturation Oxygen saturation in Arterial blood by Pulse oximetry Heart rate Systolic And Diastolic Provider Name and Address Organization Details Last Updated DateTime 5 177.8 cm 50.1 kg/m2 463482. 74 g 97.2 [degF] 96 % 96 % 85 /min 142/88 mm[Hg] Cassandrasailaja Mackey [place] - [facility] & [place] 5 09:25:26 Date Recorded Body height Body mass index (BMI) Body weight Body temperature Oxygen saturation Oxygen saturation in Arterial blood by Pulse oximetry Heart rate Heart rate Systolic And Diastolic Provider Name and Address Organization Details Last Updated DateTime 3 177.8 cm 48.6 kg/m2 025967. 02 g 97.5 [degF] 97 % 97 % 113 /min 118 /min 128/74 mm[Hg] Mora Siddiqui [place] - [facility] & [place] 09:39:09 Social History None recorded. Functional Status Question Answer Note LastModified by Organization D etails LastModified Time What is your level of alcohol consumption? None [id number] Information not available 02/01/2023 Mental Status None recorded. Family History Relationship Description Onset Age of this Age Resolved Age Notes LastModified by Organization Details LastModified Time Mother Allergy pt. added direct ly (04/10) API-13 Not available 04/10/2023 17:07:56 Mother Chronic obstructive pulmonary disease pt. added direct ly (04/10) API-13 Not available 04/10/2023 17:08:29 Mother Disorder of endocrine system pt. added direct ly (04/10) API-13 Not available 04/10/2023 18:58:38 Mother Gastroesopha geal reflux disease pt. added direct ly (04/10) API-13 Not available 04/10/2023 18:58:54 Mother Disease of liver pt. added direct ly (04/10) API-13 Not available 04/10/2023 18:59:12 Mother Hypertensive disorder pt. added direct ly (04/10) API-13 Not available 04/10/2023 18:59:59 Mother Hypercholest erolemia pt. added direct ly (04/10) API-13 Not available 04/10/2023 19:00:08 Mother Mental health problem pt. added direct ly (04/10) API-13 Not available 04/10/2023 19:02:01 Mother Kidney disease pt. added direct ly (04/10) API-13 Not available 04/10/2023 19:02:10 Mother Obesity pt. added direct ly (04/10) API-13 Not available 04/10/2023 19:02:32 Sister Allergy pt. added direct ly (04/10) API-13 Not available 04/10/2023 17:07:56 Sister Disease of liver pt. added direct ly (04/10) API-13 Not available 04/10/2023 18:59:12 Sister Hypertensive disorder pt. added direct ly (04/10) API-13 Not available 04/10/2023 18:59:59 Sister Mental health problem pt. added direct ly (04/10) API-13 Not available 04/10/2023 19:02:01 Sister Obesity pt. added direct ly (04/10) API-13 Not available 04/10/2023 19:02:32 Sister Disorder of thyroid gland pt. added direct ly (04/10) API-13 Not available 04/10/2023 19:03:19 Maternal Grandmother Allergy pt. added direct ly (04/10) API-13 Not available 04/10/2023 17:07:56 Maternal Grandmother Disorder of endocrine system pt. added direct ly (04/10) API-13 Not available 04/10/2023 18:58:38 Maternal Grandmother Hypertensive disorder pt. added direct ly (04/10) API-13 Not available 04/10/2023 18:59:59 Maternal Grandmother Mental health problem pt. added direct ly (04/10) API-13 Not available 04/10/2023 19:02:01 Maternal Grandmother Obesity pt. added direct ly (04/10) API-13 Not available 04/10/2023 19:02:32 Maternal Grandfather Allergy pt. added direct ly (04/10) API-13 Not available 04/10/2023 17:07:56 Maternal Grandfather Chronic obstructive pulmonary disease pt. added direct ly (04/10) API-13 Not available 04/10/2023 17:08:29 Maternal Grandfather Disorder of endocrine system pt. added direct ly (04/10) API-13 Not available 04/10/2023 18:58:38 Maternal Grandfather Myocardial infarction pt. added direct ly (04/10) API-13 Not available 04/10/2023 18:59:35 Maternal Grandfather Hypertensive disorder pt. added direct ly (04/10) API-13 Not available 04/10/2023 18:59:59 Paternal Grandmother Allergy pt. added direct ly (04/10) API-13 Not available 04/10/2023 17:07:56 Paternal Grandfather Allergy pt. added direct ly (04/10) API-13 Not available 04/10/2023 17:07:56 Paternal Grandfather Myocardial infarction pt. added direct ly (04/10) API-13 Not available 04/10/2023 18:59:35 Maternal Uncle Allergy pt. added direct ly (04/10) API-13 Not available 04/10/2023 17:07:56 Maternal Uncle Chronic obstructive pulmonary disease pt. added direct ly (04/10) API-13 Not available 04/10/2023 17:08:29 Maternal Uncle Disorder of endocrine system pt. added direct ly (04/10) API-13 Not available 04/10/2023 18:58:38 Maternal Uncle Myocardial infarction pt. added direct ly (04/10) API-13 Not available 04/10/2023 18:59:35 Maternal Uncle Hypertensive disorder pt. added direct ly (04/10) API-13 Not available 04/10/2023 18:59:59 Maternal Uncle Mental health problem pt. added direct ly (04/10) API-13 Not available 04/10/2023 19:02:01 Maternal Uncle Obesity pt. added direct ly (04/10) API-13 Not available 04/10/2023 19:02:32 Maternal Uncle Disorder of thyroid gland pt. added direct ly (04/10) API-13 Not available 04/10/2023 19:03:19 Maternal Uncle Cerebrovascu lar accident pt. added direct ly (04/10) API-13 Not available 04/10/2023 19:04:29 Maternal Aunt Allergy pt. added direct ly (04/10) API-13 Not available 04/10/2023 17:07:56 Maternal Aunt Hypertensive disorder pt. added direct ly (04/10) API-13 Not available 04/10/2023 18:59:59 Maternal Aunt Mental health problem pt. added direct ly (04/10) API-13 Not available 04/10/2023 19:02:01 Father Chronic obstructive pulmonary disease pt. added direct ly (04/10) API-13 Not available 04/10/2023 17:08:29 Paternal Uncle Chronic obstructive pulmonary disease pt. added direct ly (04/10) API-13 Not available 04/10/2023 17:08:29 Paternal Uncle Myocardial infarction pt. added direct ly (04/10) API-13 Not available 04/10/2023 18:59:35 Paternal Aunt Chronic obstructive pulmonary disease pt. added direct ly (04/10) API-13 Not available 04/10/2023 17:08:29 Unspecified Relation Disorder of thyroid gland pt. added direct ly (04/10) API-13 Not available 04/10/2023 19:03:19 Medical History No medical history recorded. Gynecological HistoryNo gynecological history recorded. Obstetrics History GPAL:G 0 P 0 0 0 0 Past Encounters Encounter ID Performer Location Encounter Start Date Encounter Closed Date Diagnosis/Indication Diagnosis SNOMED-CT Code Diagnosis ICD10 Code Diagnosis IMO Codes Diagnosis Note [id number] Loyd Allen PA-C [facility] [place] [id number] 2 02/01/2023 09:04:54 02/01/2023 09:44:15 Chronic idiopathic constipation 29132923 K59.04 Upper abdominal pain 831 41829 R10.10 Excessive belching 28587 7000 R14.2 Heartburn 67069832 R12 [id number] Loyd Allen PA-C [facility] [address] [address] 04/13/2023 09:23:05 04/13/2023 10:24:41 History of Helicobacter pylori infection 3586199486 6944134 Z86.19 Celiac disease 151709052 K90.0 Chronic id iopathic constipation 87164443 K59.04 Upper abdominal pain 831 23302 R10.10 Excessive belching 31651 7000 R14.2 Heartburn 11985531 R12 [id number] Loyd Allen PA-C [facility] [address] [address] 05/18/2023 09:41:06 05/18/2023 09:57:39 History of Helicobacter pylori infection 2450395751 0069444 Z86.19 Celiac disease 698519241 K90.0 Chronic id iopathic constipation 93812010 K59.04 Upper abdominal pain 831 27663 R10.10 Excessive belching 62169 7000 R14.2 Heartburn 31910538 R12 Vitamin E deficiency 541 13109 E56.0 Folic acid deficiency 19 0983278 E53.8 [id number] Loyd Allen PA-C [facility] [place] [id number] 2 09/19/2023 09:32:59 09/19/2023 10:23:45 History of Helicobacter pylori infection 7636081388 9570068 Z86.19 Celiac disease 650672479 K90.0 Chronic id iopathic constipation 66742615 K59.04 Upper abdominal pain 831 00968 R10.10 Excessive belching 15803 7000 R14.2 Vitamin E deficiency 541 06834 E56.0 Folic acid deficiency 19 7776661 E53.8 [id number] Loyd Allen PA-C [facility] [place] [id number] 2 02/28/2024 10:30:24 02/28/2024 11:27:52 History of Helicobacter pylori infection 9942337151 8791508 Z86.19 Celiac disease 068396038 K90.0 Chronic id iopathic constipation 32084852 K59.04 Upper abdominal pain 831 22004 R10.10 Excessive belching 11193 7000 R14.2 Vitamin E deficiency 541 30511 E56.0 Folic acid deficiency 19 9495595 E53.8 [id number] Loyd Allen PA-C [facility] [place] [id number] 2 03/29/2024 09:48:26 03/29/2024 10:35:00 History of Helicobacter pylori infection 3203689657 7719825 Z86.19 Celiac disease 081476977 K90.0 Chronic id iopathic constipation 65666648 K59.04 Upper abdominal pain 831 60355 R10.10 Excessive belching 27146 7000 R14.2 Vitamin E deficiency 541 02455 E56.0 Folic acid deficiency 19 0074043 E53.8 [id number] DO JORGE Pollock [facility] [address] [place] [address] 04/19/2024 12:54:22 04/19/2024 13:41:30 Paresthesia of lower extremity 403763717 R20.2 [id number] Loyd Allen PA-C [facility] [address] [place] [address] 06/13/2025 09:15:17 06/13/2025 09:46:41 History of Helicobacter pylori infection 2067117275 1390737 Z86.19 Celiac disease 544777062 K90.0 Obtain labs for monitoring . Continue previously prescribed vitamins. Chronic id iopathic constipation 26187573 K59.04 Upper abdominal pain 831 34383 R10.10 Health Concerns Section Related Observation LastModified by Organization Detai ls LastModified Time None Recorded Concern Status LastModified by Organization Details LastModified Time None Recorded Advance Directives Directive None Recorded Payers Insurance Date Sequence Insurance Name Policy Number Policy Quevedo Covered Member ID Quevedo Member ID Guarantor Name 06/13/2025 1 [facility] (MEDICAID REPLACEMENT - HMO) [id number] Ashley Brown [id number] Ashley Brown 06/13/2025 1 [place] [id number] Ashley Brown [id number] Ashley Brown Notes Date Note Type Note Provider Name and Address Organization Details Recorded Time 09/19/2023 text/html PREVIOUS (02/01/23): Very pleasant 47-year-old female who was referred by Belia Dhillon APRN for evaluation of chronic constipation and abdominal pain. She reports symptoms have been present for the past 6-7 years. Her daily bowel regimen currently consists of stool softener's and BID fiber capsules. She is able to have 1 BM daily with this. Prior use of Miralax caused diarrhea and fecal urgency. She complains that when constipation is worse, she develops upper abdominal distension and pressure type discomfort. She also reports frequent belching and occasional mild heartburn occurring less than 2 days/week. She has a family history of colon polyps in her father and sister. She believes her mother may have had Olvera's esophagus. PREVIOUS (04/13/23): Ms. Brown returns to the office today for follow-up. She underwent EGD and colonoscopy last week. She was found to have H. pylori on gastric biopsy as well as evidence of Celiac disease on duodenal biopsy. She was noted to have a cracked-mud appearance of the duodenum on gross endoscopic inspection. 2 lipomas were resected on her colonoscopy but no polyps were identified. She is actively smoking 1-1.5 PPD, but states she has a long-term goal of quiting, but does not intend to do so in the immediate future. PREVIOUS (05/18/23): Ms. Brown presents via telephonic encounter today for follow-up regarding Celiac disease. She has implemented a gluten free diet and has had improvement in abdominal pain and resolution of constipation. Recent labs showed vitamin E, folic acid, and beta-carotene deficiencies. She is currently supplementing vitamin D and B12. She also complete H. pylori treatment since her last OV. She is feeling well at this time and denies any specific complaints. CURRENT (09/19/23): Ms. Brown presents to the office today for follow-up regarding Celiac disease. She reports some recent non-compliance with a gluten free diet. This led to increasing gas and constipation. This resolved after she recently resumed a gluten free diet. She reports excessive belching with sulfer-like taste as well as some spout liner nausea. She is taking Ozempic and reports over 50 lb weight loss. Loyd Allen PA-C [address] , [place], [address], [facility] - [place] & [place] 09/19/2023 11:19:06 02/28/2024 text/html Ms. Brown is a very pleasant 48-year-old female with past medical history chronic constipation, celiac disease, and obesity who returns to the office today for follow-up. She has been experiencing more constipation recently. She is prescribed Ozempic and is experiencing excessive belching related to this. She notes that her constipation issues preceded her use of Ozempic. She has not currently taking any regular laxative therapy, but notes that MiraLax did not optimally manage her constipation in the past. She has a family history of colon polyps in her father and sister as well as Olvera's esophagus in her mother. Previous evaluation for vitamin deficiencies indicated vitamin-E, folic acid, and beta-carotene deficiencies. She is currently supplementing vitamin-D, vitamin B12, and folic acid. She does try to adhere to a gluten free diet as much as possible, but does admit that she has not 100% compliant with this. Loyd Allen PA-C [address] [facility], [place], [address], [place] - [facility] - [place] & [place] 02/28/2024 13:03:58 03/29/2024 text/html PREVIOUS (02/28/24): Ms. Brown is a very pleasant 48-year-old female with past medical history chronic constipation, celiac disease, and obesity who returns to the office today for follow-up. She has been experiencing more constipation recently. She is prescribed Ozempic and is experiencing excessive belching related to this. She notes that her constipation issues preceded her use of Ozempic. She has not currently taking any regular laxative therapy, but notes that MiraLax did not optimally manage her constipation in the past. She has a family history of colon polyps in her father and sister as well as Olvera's esophagus in her mother. Previous evaluation for vitamin deficiencies indicated vitamin-E, folic acid, and beta-carotene deficiencies. She is currently supplementing vitamin-D, vitamin B12, and folic acid. She does try to adhere to a gluten free diet as much as possible, but does admit that she has not 100% compliant with this. CURRENT (03/30/24): Ms. Brown presents via telephonic encounter today for lab and medication follow-up. Recent labs indicated abnormal celiac serology again. She is trying to adhere to a gluten free diet but admits it has not been 100%. Vitamin labs have remained stable. She was recentlyu started on low dose Linzess for treatment of chronic constipation. This has been working well for her. She denies any additional complaints at this time. I spent a total of 8 minutes during this real-time clinical encounter that was initiated by the patient which started at 1013 and ended at 1021. Consent was obtained to engage in telephonic service. Greater than 50% of the time spent was devoted to counseling and coordinating care including review of patient record, patient lab data and studies as well as discussing diagnostic evaluation and workup, planned therapeutic intervention and further disposition of care. Loyd Allen PA-C [address], [place], [address], [facility] & [place] 03/30/2024 15:15:53 06/13/2025 text/html Ms. Brown is a very pleasant 50-year-old female with history of celiac disease, chronic constipation, vitamin E deficiency, folic acid deficiency, beta-carotene deficiency, and h pylori infection who presents to the office today for annual follow-up. She is working to adhere to a gluten free diet. She notes that her current housing situation does not always support gluten free eating, but she is working to change her housing. She is feeling well overall. Her constipation continues to be well managed on low dose Linzess. She is on treatment with Ozempic. Loyd Allen PA-C [address], [place], [address], [facility] & [place] 06/13/2025 09:46:40 OBGyn Episode No OBEpisode recorded.
--- OUTSIDE RECORDS SUMMARY | 2025-08-02 23:17 | XMS_ITS | Encounter Summary ---
Author Organization Healthcare Address [address] [place] [address] Care Team Providers Care Retail Sales Associate Name Role Phone Yenny Dhillon APRN Primary Care Provider [phone] Encounter Details Date Type Department Care Team (Latest Contact Info) Description 07/17/2025 Travel Social History Tobacco Use Types Packs/Day [...] any time in the past [address] [facility], were you homeless or living in a fpc (including now)? No 07/15/2025 [facility] Utilities Answer Date Recorded In the [...] Date of Assessment Author No Risk Indicated 07/17/2025 8:00 PM EDT Inessa Almazan RN * Question Answer Date of Assessment Author 1. Wish to be (Past 1 Month) No 025 8:00 PM EDT Inessa Almazan RN 2. Non-Specific Active Suici silvia Thoughts (Past 1 Month) No 07/17/2025 8:00 PM EDT Inessa Almazan RN 6. Suicidal Behavior (Lifetime) No 8:00 PM EDT Inessa Almazan RN documented as of this encounter Plan of Treatment Upcoming Encounters Date Type Department Care Team (Late st Contact Info) Description 08/20/2025 10:30 AM EDT Office Visit [facility] General Surgery [address], [address] [place] [address] Lilliana Morfin APRN [address] [place] [address] documented as of this encounter [...] documented as of this encounter Care Teams Retail Sales Associate Relationship Specialty Start Date End Date Yenny Dhillon, [employer] [address] [place] [address] PCP - General 07/22/23 documented as of this encounter
--- OUTSIDE RECORDS SUMMARY | 2025-08-02 23:17 | XMS_ITS | Continuity of Care Document ---
Author Organization [place] - [place] - [place] & [place], [facility] Address [address] [facility] [address] [place] [address] Care Team Providers Care Director Of Speech Pathology Name Role Phone BELIA HERNANDEZ Primary Care Provider [phone] Assessment Encounter Date Assessment Date Assessment LastModified by Organization Details LastModified Time 06/13/2025 06/13/2025 50-year-old female with: 1.) Celiac [...] 12 months unless otherwise indicated by labs [email or web address] Not available 06/13/2025 09:46:20 Plan of Treatment Reminders Order Date Submit Date Provider Last Modified By Organization Details Last Modified Time Details Appointments Establish ed Visit 15 min 2025 09:15A M Loyd Allen PA-C Not available Not available Not available Lab vitamin D, 25-hydrox y, total, serum 2024 [email or web address] [place] [address] (Registration ), [address] [facility], [place], [address], 06/24/2025 16:02:53 copper, serum or plasma 2024 [email or web address] [place] [address] (Registration ), [address] [facility], [place], [address], 06/24/2025 16:02:53 CMP, serum or plasma 2024 025 [facility] (Registration ), [address], [place], [address], 06/14/2025 16:09:05 CBC [address] (Registration ), [address], [place], [address], 06/24/2025 16:02:54 vitamin B12 + folate, serum or blood [address] (Registration ), [address], [place], [address], 06/24/2025 16:02:54 zinc, serum or plasma [address] (Registration ), [address], [place], [address], 06/24/2025 16:02:54 iron + TIBC + ferritin, serum [address] [place] [address] (Registration ), [address], [place], [address], 06/24/2025 16:02:54 carotene, serum 2024 025 [facility] (Registration ), [address], [place], [address], 06/20/2025 10:12:16 vitamin A (retinol) , serum 2024 025 [facility] (Registration ), [address], [place], [address], 06/20/2025 06:11:54 vitamin E, serum 2024 025 [email or web address] [facility] (Registration ), [address], [place], [address], 06/24/2025 16:02:54 celiac disease comprehen sive panel, serum 2024 025 [email or web address] [facility] (Registration ), [address], [place], [address], 06/17/2025 15:12:20 Referral None recorded. Procedures None recorded. Surgeries None recorded. Imaging None recorded. Medication Orders None recorded. Patient TargetsNo targets recorded. Patient InstructionsNo instructions recorded. Reason for Referral None Reported. Results Created Date Observation Date Name Description Value Unit Range Abnormal Flag Note LastModifiedBy Organization Detail LastModifiedTime 06/14/2006/14/2025 COMP METAB OLIC PANEL sodium 145 mmol/ L 136-14 5 Not Available [facility] ([facility]) [address], [place], [address], 06/14/2025 16:09:05 06/14/20 25 06/14/2025 COMP METAB OLIC PANEL potassium 4.0 mmol/ L 3.6-5. 0 Not Available [facility] ([facility]) [address], [place], [address], 06/14/2025 16:09:05 06/14/20 25 06/14/2025 COMP METAB OLIC PANEL chloride 105 mmol/ L 98-107 Not Available [facility] ([facility]) [address], [place], [address], 06/14/2025 16:09:05 06/14/20 25 06/14/2025 COMP METAB OLIC PANEL carbon dioxide 31.9 mmol/ L 21.0-3 2.0 Not Available [facility] ([facility]) [address], [place], [address], 06/14/2025 16:09:05 06/14/20 25 06/14/2025 COMP METAB OLIC PANEL anion gap 12.1 Not Available [facility] ([facility]) [address], [place], [address], 06/14/2025 16:09:05 06/14/20 25 06/14/2025 COMP METAB OLIC PANEL glucose 162 mg/dL 70-120 high Not Available [facility] ([facility]) [address], [place], [address], 06/14/2025 16:09:05 06/14/20 25 06/14/2025 COMP METAB OLIC PANEL BUN 12 mg/dL 7-18 Not Available [facility] ([facility]) [address], [place], [address], 06/14/2025 16:09:05 06/14/20 25 06/14/2025 COMP METAB OLIC PANEL creatinine 1.1 mg/dL 0.6-1. 3 Not Available [facility] ([facility]) [address] , [place], [address], 06/14/2025 16:09:05 06/14/20 25 06/14/2025 COMP METAB [...] subramanian ing kiney funct ion. Not Available [facility] ([facility]) [address] , [place], [address], 06/14/2025 16:09:05 06/14/20 25 06/14/2025 COMP METAB OLIC PANEL osmolality (calculated) 304 mOsm/ kg 275-30 1 high OSMOL ALITY IS A CALCU LATIO N UTILI ZING THE SERUM /PLAS MA SODIU M, GLUCO SE AND UREA NITRO GEN (BUN) LEVEL S. FOR THE MOST ACCUR ATE RESUL T A MEASU RED SERUM OSMOL ALIAICHA IS JIMMY WEST. Not Available [facility] ([facility]) [address], [place], [address], 06/14/2025 16:09:05 06/14/20 25 06/14/2025 COMP METAB OLIC PANEL total protein 6.5 g/dL 6.4-8. 2 Not Available [facility] ([facility]) [address] [facility], [place], [address], 06/14/2025 16:09:05 06/14/20 25 06/14/2025 COMP METAB OLIC PANEL albumin 3.1 g/dL 3.4-5. 0 low Not Available [facility] ([facility]) [address] [facility], [place], [address], 06/14/2025 16:09:05 06/14/20 25 06/14/2025 COMP METAB OLIC PANEL globulin 3.4 Not Available [facility] ([facility]) [address] [facility], [place], [address], 06/14/2025 16:09:05 06/14/20 25 06/14/2025 COMP METAB OLIC PANEL alb/glob ratio 0.9 0.7-2 Not Available [facility] ([facility]) [address] [facility], [place], [address], 06/14/2025 16:09:05 06/14/20 25 06/14/2025 COMP METAB OLIC PANEL calcium 8.9 mg/dL 8.5-10 .5 Not Available [facility] ([facility]) [address] [facility], [place], [address], 06/14/2025 16:09:05 06/14/20 25 06/14/2025 COMP METAB OLIC PANEL bilirubin total 0.30 mg/dL 0.10-1 .00 Not Available [facility] ([facility]) [address], [place], [address], 06/14/2025 16:09:05 06/14/20 25 06/14/2025 COMP METAB OLIC PANEL AST (SGOT) 11 U/L 0-37 Not Available [facility] ([facility]) [address] [facility], [place], [address], 06/14/2025 16:09:05 06/14/20 25 06/14/2025 COMP METAB OLIC PANEL ALT (SGPT) 30 U/L 0-65 Not Available [facility] ([facility]) [address] [facility], [place], [address], 06/14/2025 16:09:05 06/14/20 25 06/14/2025 COMP METAB OLIC PANEL alk phosphatase 119 U/L 46-116 high Not Available [facility] ([facility]) [address], [place], [address], 06/14/2025 16:09:05 06/14/20 25 06/17/2025 IKE C DISEA SE COMPR EHENS GABY deamidated gliadin Ab, IgA 9 units 0-19 Negat gaby 0 - 19 Weak Posit gaby 20 - 30 Moder ate to Stron g Posit gaby >30 Not Available [facility] ([facility]) [address] [facility], [place], [address], 06/17/2025 15:12:20 06/14/20 25 06/17/2025 IKE C DISEA SE COMPR EHENS GABY deamidated gliadin Ab, IgG 5 units 0-19 Negat gaby 0 - 19 Weak Posit gaby 20 - 30 Moder ate to Stron g Posit gaby >30 Not Available [facility] ([facility]) [address] [facility], [place], [address], 06/17/2025 15:12:20 06/14/20 25 06/17/2025 IKE C DISEA SE COMPR EHENS GBAY IgA 210 mg/dL 87-352 Perfo rmed at: [facility] [address] [facility], [place] [address] Lab Direc tor: Edi morrison PhD, Phone : [phone] Not Available [facility] ([facility]) [address] [facility], [place], [address], 06/17/2025 15:12:20 06/14/20 25 06/17/2025 IKE C [...] sensi tive enter opath y. Not Available [facility] ([facility]) [address] [facility], [place], [address], 06/17/2025 15:12:20 06/14/20 25 06/17/2025 IKE C DISEA SE COMPR EHENS GABY T-transgluta minase (ttg), IgG 5 U/mL 0-5 Negat gaby 0 - 5 Weak Posit gaby 6 - 9 Posit gaby >9 Not Available [facility] ([facility]) [address] [facility], [place], [address], 06/17/2025 15:12:20 06/14/20 25 06/17/2025 IKE C DISEA SE COMPR EHENS GABY endomysial Ab, IgA NEGATI VE negati ve Not Available [facility] ([facility]) [address] [facility], [place], [address], 06/17/2025 15:12:20 06/14/20 25 06/20/2025 VITAM IN A vitamin A, serum 26.6 ug/dL 20.1-6 2.0 Refer ence inter vals for vitam in A deter mined from [facility] ([place]) inter nal studi es. Indiv idual s with vitam in A less than 20 ug/dL are consi dered vitam in A defic ient and those with serum rema ntrat ions less than 10 ug/dL are consi dered sever seema defic ient. . This test was devel oped and its perfo rmanc e gela cteri stics deter mined by [employer] ([place]) . It has not been clear ed or appro juan ramon by the Food and Drug Admin istra tion. Perfo rmed at: [address] [address] Lab Direc tor: Letty garces MD, Phone : [phone] Not Available [facility] ([facility]) [address] [place], [address], 06/20/2025 06:11:54 06/14/20 25 06/20/2025 CAROT JUSTIN, BETA carotene, beta <1 ug/dL 3-91 low Liudmila ified by repea t mahin sis Perfo rmed at: [address] [address] Lab Direc tor: Letty garces MD, Phone : [phone] Not Available [facility] ([facility]) [address] [place], [address], 06/20/2025 10:12:16 Result Notes None recorded. Problems Name Problem SNOMED Code Status Onset Date Resolution Date Notes Provider Name and Address Organization Details Recorded Time Chronic constipation 782718066 Active 2022 DALILA Clifford [facility] & [place] 3 09:17:43 Right inguinal hernia 461189471 Active 2022 DALILA Clifford [facility] & [place] 3 09:18:04 Weight management program Active 2022 Riri Anderson null, [place] - [facility] - [place] & [place] 3 09:18:16 Asthma 136297431 Active 2022 Riri Anderson null, [place] [facility] - [place] & [place] 3 09:18:51 Chronic obstructive pulmonary disease 50611236 Active 2022 Riri Anderson null, [place] - [facility] - [place] & [place] 3 09:18:58 Depressive disorder 13114055 Active 2022 Riri Anderson null, [place] [facility] [place] & [place] 3 09:19:37 Anxiety 05024129 Active 2022 Riri Anderson null, [place] [facility] - [place] & [place] 3 09:19:42 Chronic idiopathic constipation 05155439 Active 2022 Loyd Allen PA-C [address] [place], [address] , [place] - [facility] - [place] & [place] 3 09:43:32 Upper abdominal pain 10163620 Active 2022 Loyd Allen PA-C [address] [place], [address] , [place] - [facility] - [place] & [place] 3 09:43:40 Excessive belching 310234959 Active 2022 Loyd Allen PA-C [address] [place], [address] , [place] - [facility] - [place] & [place] 3 09:43:52 Heartburn 87517568 Active 2022 Loyd Allen PA-C [address] [place], [address] , [place] - [facility] - [place] & [place] 3 09:43:58 Celiac disease 090215993 Active 2022 Loyd Allen PA-C [address] [place], [address] , [place] - [facility] - [place] & [place] 3 10:06:52 Helicobacter pylori gastrointesti nal tract infection 725623197 Active 2022 Loyd Allen PA-C [address] , [place] [address] , [facility] - [facility] & [place] 3 10:44:33 Vitamin E deficiency 39948707 Active 2022 Loyd Allen PA-C [address], [place] [address] , [facility] - [facility] & [place] 3 09:44:58 Folic acid deficiency 855362855 Active 2022 Loyd Allen PA-C [address] , [address] [facility] & [place] 5 15:57:53 Paresthesia of lower extremity 571644128 Active 2023 DO Humberto Pollock [address] [facility] & [place] 4 13:26:52 Problem Notes None recorded. Procedures Surgical History Date Name Laterality Status Provider Name and Address Organization Details Recorded Time 04/19/20 EMG/ Nerve Conduction Study completed DO Humberto Pollock [address] - [facility] & [place] 04/19/2024 13:26:45 Hysterectomy completed Riri Anderson [facility] & [place] 02/01/2023 09:29:15 excision of mass completed Riri CONNER - [facility] & [place] 02/01/2023 09:32:34 Imaging Results None recorded. Procedure Notes None recorded. Medical Equipment None Reported. Allergies Allergen ID Allergen Name Allergen Category Reaction Reaction Severity Criticality Documentation Date Start Date Code Code System Note Provider Name and Address Organization Details Recorded Time 90628 Product containin g penicilli n (product) medicatio n Not available Not available Not available 02/01/2023 08905 8001 SNOMED Riri aggarwal [place] [facility] & [place] 3 09:13:04 43489 doxycycli ne Not available Not available Not available Not available 02/01/2023 3640 RxNorm Riri aggarwal, DALILA LANDA [facility] & [place] 3 09:13:09 83781 aspirin medicatio n Not available Not available Not available 02/01/2023 1191 RxNorm Riri aggarwal, DALILA LANDA [facility] & [place] 3 09:13:20 93380 Valium medicatio n Not available Not available Not available 02/01/2023 05968 2 RxNorm Riri aggarwal, DALILA LANDA [facility] & [place] 3 09:13:40 85629 Xanax medicatio n Not available Not available Not available 02/01/2023 20257 3 RxNorm Riri aggarwal, DALILA LANDA [facility] & [place] 3 09:13:44 47292 Wellbutri n medicatio n Not available Not available Not available 02/01/2023 28302 RxNorm Riri aggarwal, DALILA LANDA [facility] & [place] 3 09:13:48 Medications Name Sig Start Date [...] Updated DateTime 5 177.8 cm 50.1 kg/m2 042786. 74 g 97.2 [degF] 96 % 96 % 85 /min 142/88 mm[Hg] Cassandra Mackey [place] - [facility] - [place] & [place] 5 09:25:26 Social History None recorded. Functional Status Question Answer Note LastModified by Organization D etails LastModified Time What is your level of alcohol consumption? None [email or web address] Information not available 02/01/2023 Mental Status None [...] ICD10 Code Diagnosis IMO Codes Diagnosis Note [id number] Loyd Allen PA-C [facility] [address] [address] 06/13/2025 09:15:17 06/13/2025 09:46:41 History of Helicobacter pylori infection 0765701564 [id number] Z86.19 Celiac disease 237493625 K90.0 Obtain labs for monitoring . Continue previously prescribed vitamins. Chronic id iopathic constipation 47024770 K59.04 Upper abdominal pain 831 23116 R10.10 Health Concerns Section Related Observation LastModified by Organization Detai ls LastModified Time None Recorded Concern Status LastModified by Organization Details LastModified Time None Recorded Payers Encounter Date Sequence Insurance Name Policy Number Policy Quevedo Covered Member ID Quevedo Member ID Guarantor Name 06/13/2025 1 [facility] PLAN (MEDICAID REPLACEMENT - HMO) [place] Ashley Brown [id number] Ashley Brown Notes Date Note Type Note Provider Name and Address Organization Details Recorded Time 06/13/2025 text/html Ms. Brown is a very [...] on treatment with Ozempic. Loyd Allen PA-C [address], [place], [address], [facility] - [place] & [place] 06/13/2025 09:46:40 OBGyn Episode No OBEpisode recorded.
--- OUTSIDE RECORDS SUMMARY | 2025-08-02 23:20 | XMS_ITS | Encounter Summary ---
Author Organization Healthcare Address [address] [place] [address] Care Team Providers Care Registered Nurse Cardiac Telemetry Name Role Phone Yenny Dhillon APRN Primary Care Provider [phone] Encounter Details Date Type Department Care Team (Latest Contact Info) Description 07/12/2025 Travel Social History Tobacco Use Types Packs/Day Years Used Date Smoking Tobacco: Every Day Cigarettes Smokeless Tobacco: Never Alcohol Use Standard Drinks/Week Comments Not Currently 0 (1 standard drink = 0.6 oz pur e alcohol) PHQ-2 Answer Date Recorded Patient Health Questionnaire-2 Score 2 02/29/2024 PHQ-9 Answer Date Recorded Patient Health Questionnaire-9 Score 16 08/31/2023 Hunger Vital Sign Answer Date Recorded Within the past 12 months, y ou worried that your food would run out before you got the money to buy more. Never true 07/13/20 25 Within the past 12 months, t he food you bought just didn't last and you didn't have money to get more. Never true 07/13/2025 PRAPARE - Transportation Answer Date Re corded In the past 12 months, has l ack of transportation kept you from medical appointments or from getting medications? No 04/2025 In the past 12 months, has l ack of transportation kept you from meetings, work, or from getting things needed for daily living? No 07/13/2025 Housing Stability Vital Sign Answer Romel e Recorded In the last 12 months, was t here a time when you were not able to pay the mortgage or rent on time? No 07/13/2025 Number of Times Moved in the Last Year Not on fi le 07/13/2025 At any time in the past 12 m [facility], were you homeless or living in a correction (including now)? No 07/13/2025 [facility] Utilities Answer Date Recorded In the past 12 months has e electric, gas, oil, or water company threatened to shut off services in your home? No 07/13/2025 PHQ-2A Answer Date Recorded Patient Health Questionnaire-2 [...] Date of Assessment Author No Risk Indicated 07/12/2025 8:00 PM EDT Rita Mott RN * Question Answer Date of Assessment Author 1. Wish to be (Past 1 Month) No 025 8:00 PM EDT Rita Alejandro, NAHID 2. Non-Specific Active Suici silvia Thoughts (Past 1 Month) No 07/12/2025 8:00 PM EDT Juanis Alejandro, NAHID 6. Suicidal Behavior (Lifetime) No 8:00 PM EDT Rita Alejandro, NAHID documented as of this encounter Plan of Treatment Upcoming Encounters Date Type Department Care Team (Late st Contact Info) Description 08/20/2025 10:30 AM EDT Office Visit [facility] General Surgery [address], [address] [place] [address] Lilliana Morfin APRN [address] [place] [address] documented as of this encounter [...] documented as of this encounter Care Teams Registered Nurse Cardiac Telemetry Relationship Specialty Start Date End Date Yenny Dhillon APRN [address] [place] [address] PCP - General 07/22/23 documented as of this encounter
--- OUTSIDE RECORDS SUMMARY | 2025-08-02 23:20 | XMS_ITS | Encounter Summary ---
Author Organization Healthcare Address [address] [place] [address] Care Team Providers Care Gear Cutting Machine Set Up Operator Name Role Phone DhillonYenny whyte Lit CASTRO Primary Care Provider [phone] Encounter Details Date Type Department Care Team (Latest Contact Info) Description 07/10/2025 Travel Social History Tobacco Use Types Packs/Day [...] of Assessment Author No Risk Indicated 07/10/2025 8:00 PM EDT Cheyanne Qiu RN * Question Answer Date of Assessment Author 1. Wish to be (Past 1 Month) No 07/10/2025 8:00 PM EDT Briceño, Cheyanne Mi chael B, RN 2. Non-Specific Active Suicidal Thoughts (Past 1 Month) No 07/10/2025 8:00 PM EDT Cheyanne Briceño RN 6. Suicidal Behavior (Lifetime) No 07/10/2025 8:00 PM EDT Cheyanne Briceño, RN documented as of this encounter Plan of Treatment Upcoming Encounters Date Type Department Care Team (Late st Contact Info) Description 08/20/2025 10:30 AM EDT Office Visit [facility] General Surgery [address] [place] [address] Lilliana Morfin APRN [address] [place] [address] documented as of this encounter [...] documented as of this encounter Care Teams Gear Cutting Machine Set Up Operator Relationship Specialty Start Date End Date Yenny Dhillon APRN [address] [place] [address] PCP - General 07/22/23 documented as of this encounter
--- OUTSIDE RECORDS SUMMARY | 2025-08-02 23:21 | XMS_ITS | Encounter Summary ---
Author Organization Healthcare Address [address] [place] [address] Care Team Providers Care Area Coordinator Name Role Phone DhillonYenny whyte Lit CASTRO Primary Care Provider [phone] Encounter Details Date Type Department Care Team [...] of Assessment Author No Risk Indicated 07/09/2025 8:00 PM EDT Cheyanne Qiu RN * Question Answer Date of Assessment Author 1. Wish to be (Past 1 Month) No 07/09/2025 8:00 PM EDT Briceño, Cheyanne Mi chael B, RN 2. Non-Specific Active Suicidal Thoughts (Past 1 Month) No 07/09/2025 8:00 PM EDT Cheyanne Briceño RN 6. Suicidal Behavior (Lifetime) No 07/09/2025 8:00 PM EDT Cheyanne Briceño, RN documented as of this encounter Plan of Treatment Upcoming Encounters Date Type Department Care Team (Late st Contact Info) Description 08/20/2025 10:30 AM EDT Office Visit [facility] General Surgery [address], [address] [place] [address] Lilliana Morfin APRN [address] [place] [address] documented as of this encounter [...] documented as of this encounter Care Teams Area Coordinator Relationship Specialty Start Date End Date Yenny Dhillon APRN [address] [place] [address] PCP - General 07/22/23 documented as of this encounter
--- OUTSIDE RECORDS SUMMARY | 2025-08-02 23:21 | XMS_ITS | Encounter Summary ---
Author Organization Healthcare Address [address] [place] [address] Care Team Providers Care Polytechnic Registrar Name Role Phone DhillonYenny whyte Lit CASTRO Primary Care Provider [phone] Encounter Details Date Type Department Care Team [...] 1 Month) No 07/08/2025 11:34 PM EDT Briceño, Cheyanne M ichael B, RN 2. Non-Specific Active Suicidal Thoughts (Past 1 Month) No 07/08/2025 11:34 PM EDT Cheyanne Briceño RN 6. Suicidal Behavior (Lifetime) No 07/08/2025 11:34 PM EDT Cheyanne Briceño RN documented as of this encounter Plan of Treatment Upcoming Encounters Date Type Department Care Team (Late st Contact Info) Description 08/20/2025 10:30 AM EDT Office Visit [facility] General Surgery [address], [address] [place] [address] Lilliana Morfin APRN [address] [place] [address] documented as of this encounter [...] documented as of this encounter Care Teams Polytechnic Registrar Relationship Specialty Start Date End Date Yenny Dhillon APRN [address] [place] [address] PCP - General 07/22/23 documented as of this encounter
--- OUTSIDE RECORDS SUMMARY | 2025-08-02 23:23 | XMS_ITS | Clinical Summary ---
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 12/13/19 23 Active Vitamin E 180 MG (400 UNIT) capsule Take 1 tablet by mouth daily. 06/20/20 23 Active rosuvastatin (Crestor) 20 MG tablet Take 1 tablet by mouth daily. 07/23/20 23 Active naproxen (Naprosyn) 500 MG tablet Take 1 tablet by mouth 2 times a day with meals. 07/26/20 23 Active montelukast (Singulair) 10 MG tablet Take 1 tablet by mouth daily. 08/03/20 23 Active folic acid (Folvite) 1 MG tablet Take 1 tablet by mouth 1 time each day. 02/15/20 23 Active fluticasone (Flonase) 50 MCG/ACT nasal spray Administer 1 spray into each nostril 2 times a day. 11/16/19 Active cholecalciferol (Vitamin D-3) 5,000 Units tablet Take 1 tablet by mouth daily. 01/18/20 23 Active polycarbophil (EQ Fiber Therapy) 625 MG tablet Take 1 tablet by mouth daily. 05/12/20 Active budesonide-form oterol (Symbicort) 160-4.5 MCG/ACT inhaler Inhale 2 puffs 2 times a day. 02/09/20 22 Active Linzess 72 MCG capsule capsule Take 1 capsule by mouth daily before breakfast. 02/28/20 24 Active DULoxetine (Cymbalta) [address] capsule Take 1 capsule by mouth daily. Do not crush or chew. Active loratadine (Claritin) 10 MG tablet Take 1 tablet by mouth daily. Active lamoTRIgine (LaMICtal XR) 100 mg tablet sustained-relea se 24 hour 24 hr tablet Take 1 tablet by mouth daily. Active metoprolol succinate XL (Toprol-XL) 100 MG 24 hr tablet Take 1 tablet by mouth daily. Do not crush or chew. Active busPIRone (Buspar) 15 MG tablet Take 1 tablet by mouth 3 times a day. Active acetaminophen (Tylenol) 500 MG tablet Take 2 tablets by mouth every 6 hours. 07/19/20 Active insulin glargine-yfgn 100 UNIT/ML injection vial Inject 10 Units under the skin nightly. 07/19/20 25 Active insulin lispro (Admelog) 100 UNIT/ML injection Inject 0-5 Units under the skin 3 times a day with meals. See After Visit Summary for instructions on how to take your insulin. 07/19/20 25 Active insulin lispro (Admelog) 100 UNIT/ML injection Inject 0-3 Units under the skin 2 times a night. See After Visit Summary for instructions on how to take your insulin. 07/19/20 25 Active methocarbamol (Robaxin) 750 MG tablet Take 1 tablet by mouth 3 times a day. 07/19/20 25 Active oxyCODONE (Roxicodone) 10 MG immediate release tablet Take 1 tablet by mouth every 6 hours as needed for severe pain. 07/19/20 25 Active naloxone (Narcan) 4 mg/0.1 mL nasal spray 1. Give 1 spray in nostril for no/slow breathing or cannot wake after opioid use 2. Call 911 3. Repeat in other nostril if symptoms continue 1 each 07/19/20 25 Active oxyCODONE (Roxicodone) 5 MG immediate release tablet Take 1 tablet by mouth Q MWF. 07/19/20 Active polyethylene glycol (Miralax) 17 g packet Take 17 g by mouth daily. 07/20/20 25 Active senna-docusate (Leann-Colace) 8.6-50 MG tablet Take 1 tablet by mouth 2 times a day. 07/19/20 Active Nutritional Supplements (Jose) pack Take 1 Package by mouth 2 times a day with meals. 07/19/20 Active metFORMIN (Glucophage) 500 MG tablet Take by mouth twice a day. 02/20/20 Discontinu ed(Entered in Error) busPIRone (Buspar) 10 MG tablet Take 1 tablet (10 mg) by mouth twice a day. Discontinu ed(Entered in Error) Ozempic, 1 MG/DOSE, 4 MG/3ML solution pen-injector INJECT 1 MG SUBCUTANEOUSLY ONCE A WEEK ON THE SAME DAY EACH WEEK 08/15/20 Discontinu ed(Entered in Error) nitrofurantoin, macrocrystal-mo nohydrate, (Macrobid) 100 MG capsule TAKE 1 CAPSULE BY MOUTH EVERY 12 HOURS WITH FOOD 07/14/20 Discontinu ed(Entered in Error) Misc Natural Products (Osteo Bi-Flex Adv Triple St) tablet Take 1 tablet by mouth twice a day. Discontinu ed(Entered in Error) Procto-Med HC 2.5 % rectal cream APPLY A THIN LAYER OF CREAM TO AFFECTED AREA(S) 2-4 TIMES DAILY 06/13/20 Discontinu ed(Entered in Error) escitalopram (Lexapro) 5 MG tablet Take 1 tablet (5 mg) by mouth 1 (one) time each day. as directed 08/18/20 Discontinu ed(Entered in Error) DULoxetine (Cymbalta) [address] capsule Take 2 capsules (60 mg) by mouth 1 (one) time each day. 08/18/20 23 025 Discontinu ed(Entered in Error) Docusate Sodium (DSS) 100 MG capsule Take 200 mg by mouth 1 (one) time each day. 025 Discontinu ed(Entered in Error) cephalexin (Keflex) 500 MG capsule TAKE 1 CAPSULE BY MOUTH 4 TIMES DAILY 02/21/20 24 025 Discontinu ed(Entered in Error) mirabegron ER (Myrbetriq) 25 MG tabletIndicatio ns:Urge incontinence Take 1 tablet by mouth daily. 30 tablet 3 03/22/20 25 025 Active Problems Problem Noted Date Diagnosed Date Hypoxia 07/16/2025 Overview (07/16/2025): On 6 L NC, smoker Postoperative pain 07/13/2025 Assessment & Plan (07/19/2025 7:08 AM EDT): [facility] Assessment & Plan (07/18/2025 7:05 AM EDT): [facility] Assessment & Plan (07/17/2025 10:21 AM EDT): [facility] Assessment & Plan (07/16/2025 6:52 AM EDT): [facility] Assessment & Plan (07/15/2025 7:15 AM EDT): [facility] Assessment & Plan (07/14/2025 7:31 AM EDT): [facility] Assessment & Plan (07/13/2025 12:36 PM EDT): [facility] JOSEP (obstructive sleep apnea) 07/11/2025 Overview (07/11/2025): -CPAP at night as needed Assessment & Plan (07/19/2025 7:08 AM EDT): CPAP at night Assessment & Plan (07/18/2025 7:05 AM EDT): CPAP at night Assessment & Plan (07/17/2025 10:21 AM EDT): CPAP at night Assessment & Plan (07/16/2025 6:52 AM EDT): CPAP at night Assessment & Plan (07/15/2025 7:15 AM EDT): CPAP at night Assessment & Plan (07/14/2025 7:31 AM EDT): CPAP at night Assessment & Plan (07/13/2025 12:36 PM EDT): CPAP at night HLD (hyperlipidemia) 07/10/2025 Overview (07/11/2025): - Continuing home Crestor Assessment & Plan (07/19/2025 7:08 AM EDT): Home Rosuvastatin Assessment & Plan (07/18/2025 7:05 AM EDT): Home Rosuvastatin Assessment & Plan (07/17/2025 10:21 AM EDT): Home Rosuvastatin Assessment & Plan (07/16/2025 6:52 AM EDT): Home Rosuvastatin Assessment & Plan (07/15/2025 7:15 AM EDT): Home Rosuvastatin Assessment & Plan (07/14/2025 7:31 AM EDT): Home Rosuvastatin Assessment & Plan (07/13/2025 12:36 PM EDT): Home Rosuvastatin Absence seizure 07/09/2025 Overview (07/11/2025): -Lamictal 100 mg daily Assessment & Plan (07/19/2025 7:08 AM EDT): - On Lamictal 50mg BID at home. Restarted 07/09. Assessment & Plan (07/18/2025 7:05 AM EDT): - On Lamictal 50mg BID at home. Restarted 07/09. Assessment & Plan (07/17/2025 10:21 AM EDT): - On Lamictal 50mg BID at home. Restarted 07/09. Assessment & Plan (07/16/2025 6:52 AM EDT): - On Lamictal 50mg BID at home. Restarted 07/09. Assessment & Plan (07/15/2025 7:15 AM EDT): - On Lamictal 50mg BID at home. Restarted 07/09. Assessment & Plan (07/14/2025 7:31 AM EDT): - On Lamictal 50mg BID at home. Restarted 07/09. Assessment & Plan (07/13/2025 12:36 PM EDT): - On Lamictal 50mg BID at home. Restarted 07/09. Acute respiratory failure 07/09/2025 Overview (07/12/2025): - Patient presented to ED in septic shock due to RLE necrotizing fasciitis. - Was requiring ventalation support, was extubated postoperatively on 07/10 after I&D - Plan to continue to wean O2 as tolerated - CPAP at night for suspected sleep apnea - Lasix as needed for pulmonary edema to help with breathing - Improving, continue to monitor Assessment & Plan (07/19/2025 7:08 AM EDT): CPAP at night for suspected sleep apnea Lasix PRN for pulmonary edema and to help with breathing Improving, will continue to monitor Assessment & Plan (07/18/2025 7:05 AM EDT): CPAP at night for suspected sleep apnea Lasix PRN for pulmonary edema and to help with breathing Improving, will continue to monitor Assessment & Plan (07/17/2025 10:21 AM EDT): CPAP at night for suspected sleep apnea Lasix PRN for pulmonary edema and to help with breathing Improving, will continue to monitor Assessment & Plan (07/16/2025 6:52 AM EDT): CPAP at night for suspected sleep apnea Lasix PRN for pulmonary edema and to help with breathing Improving, will continue to monitor Assessment & Plan (07/15/2025 7:15 AM EDT): CPAP at night for suspected sleep apnea Lasix PRN for pulmonary edema and to help with breathing Improving, will continue to monitor Assessment & Plan (07/14/2025 7:31 AM EDT): CPAP at night for suspected sleep apnea Lasix PRN for pulmonary edema and to help with breathing Improving, will continue to monitor Assessment & Plan (07/13/2025 12:36 PM EDT): CPAP at night for suspected sleep apnea Lasix PRN for pulmonary edema and to help with breathing Improving, will continue to monitor Septic shock 07/09/2025 Overview (07/12/2025): - Septic shock secondary to necrotizing fascitis. - Required Levophed and Vasopressin for circulatory support. - Currently off pressor support, continue to monitor pressures. Assessment & Plan (07/19/2025 7:08 AM EDT): Septic shock secondary to necrotizing fascitis. Required Levophed and Vasopressin for circulatory support. Currently off pressor support, continue to monitor pressures. Assessment & Plan (07/18/2025 7:05 AM EDT): Septic shock secondary to necrotizing fascitis. Required Levophed and Vasopressin for circulatory support. Currently off pressor support, continue to monitor pressures. Assessment & Plan (07/17/2025 10:21 AM EDT): Septic shock secondary to necrotizing fascitis. Required Levophed and Vasopressin for circulatory support. Currently off pressor support, continue to monitor pressures. Assessment & Plan (07/16/2025 6:52 AM EDT): Septic shock secondary to necrotizing fascitis. Required Levophed and Vasopressin for circulatory support. Currently off pressor support, continue to monitor pressures. Assessment & Plan (07/15/2025 7:15 AM EDT): Septic shock secondary to necrotizing fascitis. Required Levophed and Vasopressin for circulatory support. Currently off pressor support, continue to monitor pressures. Assessment & Plan (07/14/2025 7:31 AM EDT): Septic shock secondary to necrotizing fascitis. Required Levophed and Vasopressin for circulatory support. Currently off pressor support, continue to monitor pressures. Assessment & Plan (07/13/2025 12:36 PM EDT): Septic shock secondary to necrotizing fascitis. Required Levophed and Vasopressin for circulatory support. Currently off pressor support, continue to monitor pressures. Necrotizing fasciitis 07/08/2025 Overview (07/12/2025): - Presented to [facility] with right medial thigh NSTI. - Seen [...] cultures. - Dressing changes at bedside daily Assessment & Plan (07/19/2025 7:08 AM EDT): - 07/09: debridement of necrotizing fasciitis in [...] Linezolid pending wound eval PT/OT eval pending Assessment & Plan (07/18/2025 7:05 AM EDT): - 07/09: debridement of necrotizing fasciitis in [...] Linezolid pending wound eval PT/OT eval pending Assessment & Plan (07/17/2025 10:21 AM EDT): - 07/09: debridement of necrotizing fasciitis in [...] Linezolid pending wound eval PT/OT eval pending Assessment & Plan (07/16/2025 6:52 AM EDT): - 07/09: debridement of necrotizing fasciitis in [...] Linezolid pending wound eval PT/OT eval pending Assessment & Plan (07/15/2025 7:15 AM EDT): - 07/09: debridement of necrotizing fasciitis in [...] Linezolid pending wound eval PT/OT eval pending Assessment & Plan (07/14/2025 7:31 AM EDT): - 07/09: debridement of necrotizing fasciitis in [...] Linezolid pending wound eval PT/OT eval pending Assessment & Plan (07/13/2025 12:36 PM EDT): - 07/09: debridement of necrotizing fasciitis in [...] Linezolid pending wound eval PT/OT eval pending Assessment & Plan (07/08/2025 7:44 PM EDT): Concern for acute infection WBC 26 Got 3L fluids and needed pressors at OSH prior to transfer To OR this evening as A Likely ICU post op IV antibiotics Resuscitation Marked and consented DM (diabetes mellitus) 07/08/2025 Overview (07/09/2025): - Patient hyperglycemic, up to 300s. - Insulin drip per protocol. Assessment & Plan (07/19/2025 7:08 AM EDT): - Patient presenting with significant hyperglycemia, requiring an insulin drip on admission. - Currently off insulin drip Pharmacy to dose insulin Glargine 10U, Lispro correction and nighttime dosing. Carbohydrate restricted diet Assessment & Plan (07/18/2025 7:05 AM EDT): - Patient presenting with significant hyperglycemia, requiring an insulin drip on admission. - Currently off insulin drip Pharmacy to dose insulin Glargine 10U, Lispro correction and nighttime dosing. Carbohydrate restricted diet Assessment & Plan (07/17/2025 10:21 AM EDT): - Patient presenting with significant hyperglycemia, requiring an insulin drip on admission. - Currently off insulin drip Pharmacy to dose insulin Glargine 10U, Lispro correction and nighttime dosing. Carbohydrate restricted diet Assessment & Plan (07/16/2025 6:52 AM EDT): - Patient presenting with significant hyperglycemia, requiring an insulin drip on admission. - Currently off insulin drip Pharmacy to dose insulin Glargine 10U, Lispro correction and nighttime dosing. Carbohydrate restricted diet Assessment & Plan (07/15/2025 7:15 AM EDT): - Patient presenting with significant hyperglycemia, requiring an insulin drip on admission. - Currently off insulin drip Pharmacy to dose insulin Glargine 10U, Lispro correction and nighttime dosing. Carbohydrate restricted diet Assessment & Plan (07/14/2025 7:31 AM EDT): - Patient presenting with significant hyperglycemia, requiring an insulin drip on admission. - Currently off insulin drip Pharmacy to dose insulin Glargine 10U, Lispro correction and nighttime dosing. Carbohydrate restricted diet Assessment & Plan (07/13/2025 12:36 PM EDT): - Patient presenting with significant hyperglycemia, requiring an insulin drip on admission. - Currently off insulin drip Pharmacy to dose insulin Glargine 10U, Lispro correction and nighttime dosing. Carbohydrate restricted diet Hidradenitis 07/08/2025 Assessment & Plan (07/19/2025 7:08 AM EDT): Follows with outpatient provider Assessment & Plan (07/18/2025 7:05 AM EDT): Follows with outpatient provider Assessment & Plan (07/17/2025 10:21 AM EDT): Follows with outpatient provider Assessment & Plan (07/16/2025 6:52 AM EDT): Follows with outpatient provider Assessment & Plan (07/15/2025 7:15 AM EDT): Follows with outpatient provider Assessment & Plan (07/14/2025 7:31 AM EDT): Follows with outpatient provider Assessment & Plan (07/13/2025 12:36 PM EDT): Follows with outpatient provider Hidradenitis suppurativa 08/31/2023 023 History of hysterectomy 08/31/2023 08/31/20 23 HTN (hypertension), benign 08/31/202308/31 Overview (07/11/2025): -Pt still requiring pressure support on 07/11 -Resume home medications as appropriate. Assessment & Plan (07/19/2025 7:08 AM EDT): Restart home meds as appropriate Assessment & Plan (07/18/2025 7:05 AM EDT): Restart home meds as appropriate Assessment & Plan (07/17/2025 10:21 AM EDT): Restart home meds as appropriate Assessment & Plan (07/16/2025 6:52 AM EDT): Restart home meds as appropriate Assessment & Plan (07/15/2025 7:15 AM EDT): Restart home meds as appropriate Assessment & Plan (07/14/2025 7:31 AM EDT): Restart home meds as appropriate Assessment & Plan (07/13/2025 12:36 PM EDT): Restart home meds as appropriate Wound dehiscence 08/31/2023 08/31/2023 Urge incontinence 08/31/2023 Assessment & Plan (07/19/2025 7:08 AM EDT): Patient currently with a montalvo catheter. Remove when able. Assessment & Plan (07/18/2025 7:05 AM EDT): Patient currently with a montalvo catheter. Remove when able. Assessment & Plan (07/17/2025 10:21 AM EDT): Patient currently with a montalvo catheter. Remove when able. Assessment & Plan (07/16/2025 6:52 AM EDT): Patient currently with a montalvo catheter. Remove when able. Assessment & Plan (07/15/2025 7:15 AM EDT): Patient currently with a montalvo catheter. Remove when able. Assessment & Plan (07/14/2025 7:31 AM EDT): Patient currently with a montalvo catheter. Remove when able. Assessment & Plan (07/13/2025 12:36 PM EDT): Patient currently with a montalvo catheter. Remove when able. Stress incontinence 08/31/2023 Carpal tunnel syndrome 06/09/2023 Depression 06/09/2023 08/31/2023 Overview (07/11/2025): - Resume home Duloxetine. Assessment & Plan (07/19/2025 7:08 AM EDT): Home Duloxetine Assessment & Plan (07/18/2025 7:05 AM EDT): Home Duloxetine Assessment & Plan (07/17/2025 10:21 AM EDT): Home Duloxetine Assessment & Plan (07/16/2025 6:52 AM EDT): Home Duloxetine Assessment & Plan (07/15/2025 7:15 AM EDT): Home Duloxetine Assessment & Plan (07/14/2025 7:31 AM EDT): Home Duloxetine Assessment & Plan (07/13/2025 12:36 PM EDT): Home Duloxetine Marijuana smoker 06/09/2023 08/31/2023 Smoker 06/09/2023 08/31/2023 Overview (07/09/2025): - Patient smokes 0.5-1ppd. - Smoking cessation when appropriate. Assessment & Plan (07/19/2025 7:08 AM EDT): - Patient smokes 0.5-1ppd. - Smoking cessation when appropriate. Assessment & Plan (07/18/2025 7:05 AM EDT): - Patient smokes 0.5-1ppd. - Smoking cessation when appropriate. Assessment & Plan (07/17/2025 10:21 AM EDT): - Patient smokes 0.5-1ppd. - Smoking cessation when appropriate. Assessment & Plan (07/16/2025 6:52 AM EDT): - Patient smokes 0.5-1ppd. - Smoking cessation when appropriate. Assessment & Plan (07/15/2025 7:15 AM EDT): - Patient smokes 0.5-1ppd. - Smoking cessation when appropriate. Assessment & Plan (07/14/2025 7:31 AM EDT): - Patient smokes 0.5-1ppd. - Smoking cessation when appropriate. Assessment & Plan (07/13/2025 12:36 PM EDT): - Patient smokes 0.5-1ppd. - Smoking cessation when appropriate. Dehydration 06/08/2023 08/31/2023 Morbid (severe) obesity due to excess calories 0 02/15/2022 08/31/2023 Overview (07/11/2025): - Complicates care. - Counseling when appropriate. Assessment & Plan (07/19/2025 7:08 AM EDT): Complicates all aspect of care Assessment & Plan (07/18/2025 7:05 AM EDT): Complicates all aspect of care Assessment & Plan (07/17/2025 10:21 AM EDT): Complicates all aspect of care Assessment & Plan (07/16/2025 6:52 AM EDT): Complicates all aspect of care Assessment & Plan (07/15/2025 7:15 AM EDT): Complicates all aspect of care Assessment & Plan (07/14/2025 7:31 AM EDT): Complicates all aspect of care Assessment & Plan (07/13/2025 12:36 PM EDT): Complicates all aspect of care Type 2 diabetes mellitus 02/15/2022 023 Overview (08/31/2023): Last Assessment & Plan: Condition: stable Discussed glucose control targets. Educated on: Lifestyle changes Follow up in: three months with PCP Vitamin D deficiency 02/15/2022 08/31/2023 Overview (08/31/2023): Last Assessment & Plan: Condition: stable Follow up in: three months Chronic obstructive pulmonary disease, unspecifi ed 01/09/2022 08/31/2023 Overview (07/11/2025): - Complicates care. - Continue Albuterol and DuoNebs. -Pulm toilet ordered on 07/11 - On high flow O2 70%, will plan to wean as tolerated - Monitor respiratory status clinically Assessment & Plan (07/19/2025 7:08 AM EDT): Complicates care. Continue Albuterol and DuoNebs. 3L Nasal cannula, continue to wean as tolerated Monitor respiratory status clinically Assessment & Plan (07/18/2025 7:05 AM EDT): Complicates care. Continue Albuterol and DuoNebs. 3L Nasal cannula, continue to wean as tolerated Monitor respiratory status clinically Assessment & Plan (07/17/2025 10:21 AM EDT): Complicates care. Continue Albuterol and DuoNebs. 3L Nasal cannula, continue to wean as tolerated Monitor respiratory status clinically Assessment & Plan (07/16/2025 6:52 AM EDT): Complicates care. Continue Albuterol and DuoNebs. 3L Nasal cannula, continue to wean as tolerated Monitor respiratory status clinically Assessment & Plan (07/15/2025 7:15 AM EDT): Complicates care. Continue Albuterol and DuoNebs. 3L Nasal cannula, continue to wean as tolerated Monitor respiratory status clinically Assessment & Plan (07/14/2025 7:31 AM EDT): Complicates care. Continue Albuterol and DuoNebs. 3L Nasal cannula, continue to wean as tolerated Monitor respiratory status clinically Assessment & Plan (07/13/2025 12:36 PM EDT): Complicates care. Continue Albuterol and DuoNebs. 3L Nasal cannula, continue to wean as tolerated Monitor respiratory status clinically Resolved Problems Problem Noted Date Diagnosed Date Resolved Date Pharyngitis 08/31/2023 08/31/2023 07/28/2025 Nocturia 08/31/2023 07/28/2025 Encounters Date Type Department Care Team Description 08/02/2025 Telephone [facility] [address] [place] [address] Marj Matamoros, GLORIA HCN Clinical Concern/Question 07/22/2025 Travel 07/17/2025 Travel 07/16/2025 Travel 07/14/2025 2:41 PM EDT Anesthesia Event [facility] [address] [place] [phone] Azul Eisenberg CRNA, Lynnette Montoya, 07/14/2025 2:05 PM EDT - 07/14/2025 4:05 PM EDT Surgery [facility] [address] [place] [address] Anne Franco MD Debridement, partial closure of right groin wound 07/12/2025 Travel 07/11/2025 2:12 PM EDT Anesthesia Event [facility] [address] [place] [phone] Eddie Fulton MD Gambrel, Shira G, MD 07/11/2025 1:50 PM EDT - 07/11/2025 3:20 PM EDT Surgery [facility] [address] [place] [phone] Dorcas Hennessy MD APPLICATION OR REPLACEMENT, WOUND VAC 07/10/2025 3:16 PM EDT Anesthesia Event [facility] [address] [place] [phone] Jason Douglas DO Gibson, Corinne E, MD 07/10/2025 11:35 AM EDT - 07/10/2025 1:45 PM EDT Surgery [facility] [address] [place] [phone] Dorcas Hennessy MD DEBRIDEMENT, WOUND groin 07/10/2025 Travel 07/09/2025 Travel 07/08/2025 8:09 PM EDT Anesthesia Event [facility] [address] [place] [phone] Yadi Goel MD Johnson, Chandler B, MD 07/08/2025 8:00 PM EDT - 07/08/2025 9:30 PM EDT Surgery [facility] [address] [place] [phone] Brittany Crawford MD IRRIGATION AND DEBRIDEMENT, WOUND [[id number] (CPT )] 07/08/2025 5:58 PM EDT - 07/19/2025 12:56 PM EDT Hospital Encounter [facility] [address] [place] [phone] Kyle Mckinney MD Rodriguez, Rachel D, MD Wei, Helen S, MD Detelich, Danielle M, MD Necrotizing fasciitis (CMS/HCC) (Primary Dx); 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); Morbid (severe) obesity due to excess calories (CMS/HCC); Septic shock (CMS/HCC); Acute respiratory failure with hypoxia; Type 2 diabetes mellitus with hyperglycemia, without long-term current use of insulin (CMS/HCC); Celiac disease; Respiratory insufficiency Discharge Disposition: Rehab Facility 07/08/2025 Travel from Last 3 Months Family [...] any time in the past 12 m [facility], were you homeless or living in a group home (including now)? No 07/15/2025 [facility] Utilities Answer Date Recorded In [...] Mass Index 51.1 07/09/2025 7:20 PM EDT Plan of Treatment Upcoming Encounters Date Type Department Care Team (Late st Contact Info) Description 08/20/2025 10:30 AM EDT Office Visit [facility] [address] [place] [address] Lilliana Morfin APRN [address] [place] [phone] Health Maintenance Due Date Last Done Comments [facility]-/Child/Adol SDOH Screenings 1976 Diabetes: Dental Exam 1986 [facility]-DTaP,Tdap,and Td Vaccine s (1 - Tdap) 1995 [facility]-Hepatitis B Vaccines (1 of 3 - 19+ 3-dose series) 1995 [facility]-Pneumococcal Vaccine: Pediatrics (0 to 5 Years) and At-Risk Patients (6 to 49 Years) (1 of 2 - PCV) 1995 CT Colonography 2021 Colonoscopy 2021 FIT-DNA 2021 FIT 2021 FOBT 2021 Sigmoidoscopy 2021 [facility]-Colorectal Cancer Screening 2021 [facility]-Depression Screening 02/28/2025 024, 08/31/2023 [id number] Vaccine (1 - season) 2025 [facility]-Influenza Vaccine (#1) 2025 [facility]-Diabetes: Hemoglobin A1C 10/08/2025 07/09/2025 [facility]- SDOH Screenings 01/12/2026 [facility]-Adult SDOH Screenings 01/12/2026 07/15/2025 [facility]-Zoster Vaccines (1 of 2) 2026 [facility]-HIV Screening Completed 07/08/2025 [facility]-Hepatitis C Screening Completed 07/08/2025 [facility]Obesity Intervention Completed 025, 02/29/2024, 08/31/2023 HPV Vaccines Aged Out No longer [...] UNSOLICITED RESULTS Routine 07/19/2025 12:27 PM EDT PHOSPHORUS, PLASMA Pending Discharge 07/19/2025 4:28 AM EDT MAGNESIUM, PLASMA Pending Discharge 07/19/2025 4:28 AM EDT CBC W/O DIFFERENTIAL Pending Discharge 07/19/2025 4:28 AM EDT BASIC [...] PEP THERAPY Routine 07/17/2025 7:09 AM EDT PHOSPHORUS, PLASMA Routine 07/17/2025 5: 20 AM EDT MAGNESIUM, PLASMA Routine 07/17/2025 5:2 0 AM EDT CBC W/O DIFFERENTIAL Routine 07/17/2025 5:20 AM EDT BASIC METABOLIC PANEL, PLASMA Routine [...] PEP THERAPY Routine 07/16/2025 7:09 AM EDT PHOSPHORUS, PLASMA Add-On 07/16/2025 5:25 AM EDT MAGNESIUM, PLASMA Add-On 07/16/2025 5:2 5 AM EDT CBC W/O DIFFERENTIAL Routine 07/16/2025 5:25 AM EDT BASIC METABOLIC PANEL, PLASMA Routine [...] UNSOLICITED RESULTS Routine 07/14/2025 4:56 PM EDT PB ANESTHESIA PLACEHOLDER Routine 07/14/2025 2:53 PM EDT RI AN ELECTIVE ENDOTRACHEAL AIRWAY Routine 07/14/2025 2:53 PM EDT DEBRIDEMENT, WOUND 07/14/2025 2: 26 PM EDT Necrotizing fasciitis (CMS/HCC) PEP THERAPY Routine 07/14/2025 1:09 PM EDT POCT GLUCOSE METER UNSOLICITED RESULTS Routine 07/14/2025 12:38 PM EDT BASIC METABOLIC PANEL, PLASMA Routine 07/14/2025 9:36 AM EDT MAGNESIUM, PLASMA Routine 07/14/2025 9:3 6 AM EDT PHOSPHORUS, PLASMA Routine 07/14/2025 9: 36 AM EDT CBC W/O DIFFERENTIAL Routine 07/14/2025 9:36 AM EDT POCT GLUCOSE [...] UNSOLICITED RESULTS Routine 07/13/2025 12:12 PM EDT PHOSPHORUS, PLASMA Routine 07/13/2025 10:21 AM EDT MAGNESIUM, PLASMA Routine 07/13/2025 10:21 AM EDT BASIC METABOLIC PANEL, PLASMA Routine 07/13/2025 10:21 AM EDT CBC W/O DIFFERENTIAL Routine 07/13/2025 10:21 AM EDT POCT GLUCOSE [...] PEP THERAPY Routine 07/12/2025 1:09 AM EDT PHOSPHORUS, PLASMA Routine 07/12/2025 12:25 AM EDT MAGNESIUM, PLASMA Routine 07/12/2025 12:25 AM EDT BASIC METABOLIC PANEL, PLASMA Routine 07/12/2025 12:25 AM EDT CBC W/O DIFFERENTIAL Routine 07/12/2025 12:25 AM EDT POCT GLUCOSE Routine 07/11/2025 8:45 PM EDT POCT GLUCOSE Routine 07/11/2025 8:43 PM EDT POCT GLUCOSE METER UNSOLICITED RESULTS Routine 07/11/2025 8:42 PM EDT PEP THERAPY Routine 07/11/2025 7:09 PM EDT POCT GLUCOSE METER UNSOLICITED RESULTS Routine 07/11/2025 5:38 PM EDT POCT GLUCOSE METER UNSOLICITED RESULTS Routine 07/11/2025 3:36 PM EDT PB ANESTHESIA PLACEHOLDER Routine 07/11/2025 2:23 PM EDT RI AN ELECTIVE ENDOTRACHEAL AIRWAY Routine 07/11/2025 2:23 PM EDT APPLICATION OR REPLACEMENT, WOUND VAC [...] UNSOLICITED RESULTS Routine 07/11/2025 2:02 AM EDT PHOSPHORUS, PLASMA Routine 07/11/2025 12:09 AM EDT MAGNESIUM, PLASMA Routine 07/11/2025 12:09 AM EDT BASIC METABOLIC PANEL, PLASMA Routine 07/11/2025 12:09 AM EDT CBC W/O DIFFERENTIAL Routine 07/11/2025 12:09 AM EDT POCT GLUCOSE [...] 07/10/2025 3: 00 PM EDT Necrotizing fasciitis ([facility]/HCC) POCT GLUCOSE METER UNSOLICITED RESULTS Routine 07/10/2025 [...] UNSOLICITED RESULTS Routine 07/10/2025 12:59 AM EDT PHOSPHORUS, PLASMA Routine 07/10/2025 12:03 AM EDT MAGNESIUM, PLASMA Routine 07/10/2025 12:03 AM EDT BASIC METABOLIC PANEL, PLASMA Routine 07/10/2025 12:03 AM EDT CBC W/O DIFFERENTIAL Routine 07/10/2025 12:03 AM EDT POCT GLUCOSE [...] Routine 07/09/2025 7:15 AM EDT Necrotizing fasciitis ([facility]) Morbid (severe) obesity due to excess calories ([facility]) Septic shock ([facility]) Acute respiratory failure with hypoxia POCT GLUCOSE METER UNSOLICITED RESULTS Routine 07/09/2025 6:05 AM EDT HEMOGLOBIN A1C Add-On 07/09/2025 4:57 AM EDT PHOSPHORUS, PLASMA Routine [...] 11:53 PM EDT PHOSPHORUS, PLASMA STAT 07/08/2025 11:52 PM EDT MAGNESIUM, PLASMA STAT 07/08/2025 11:52 PM EDT BASIC METABOLIC PANEL, PLASMA STAT 07/08/2025 11:52 PM EDT CBC W/O DIFFERENTIAL STAT 07/08/2025 11:52 PM EDT BLOOD GAS PANEL, ARTERIAL STAT 07/08/2025 11:50 PM EDT GENO AURIS SURVEILLANCE BY PCR Routine 07/08/2025 11:50 PM EDT MULTI DRUG RESISTANCE TEST Routine 07/08/2025 11:50 PM EDT POCT GLUCOSE METER UNSOLICITED RESULTS Routine 07/08/2025 11:49 PM EDT SBT - SPONTANEOUS BREATHING TRIAL Routine 07/08/2025 11:47 PM EDT END TIDAL [...] PROCEDURE PLACEHOLDER Routine 07/08/2025 8:37 PM EDT RI AN CENTRAL LINE TRIPLE LUMEN Routine 07/08/2025 8:37 PM EDT PB ANESTHESIA PLACEHOLDER Routine 07/08/2025 8:28 PM EDT RI AN ELECTIVE ENDOTRACHEAL AIRWAY Routine 07/08/2025 8:28 PM EDT ANESTHESIA ARTERIAL LINE PLACEMENT Routine 07/08/2025 8:22 PM EDT RI DEBRIDEMENT, SKIN, SUB-Q TISSUE,=<20 SQ CM 07/08/2025 [...] Months Results * (ABNORMAL) POCT glucose meter (07/19/2025 12:27 PM EDT) Only the most recent of72 resultswithin the time period is included. POCT Glucose 197(H) 74 - 99 mg/dL [...] 07/19/2025 5:32 PM EDT [facility] Clothing Man ID Laura Baez 025 5:32 PM EDT HEALTHCARE LAB Device ID [id number] 07/19/2025 5:32 PM EDT [facility]ARE [facility] Specimen Type POC Capillary 07/19/2025 5:32 PM EDT [facility] Blood Capillary blood specimen / Unknown 07/19/2025 12:27 PM EDT 07/19/2025 5:32 PM EDT us Anne Franco MD LAB POINT OF CARE TEST DOCKED DEVICE UNSOLICITED RESULTS Final Result [facility] [address] [place] [address] * (ABNORMAL) CBC W/O Differential (07/19/2025 4:28 AM EDT) Only the most recent of11 resultswithin the time period is included. WBC Count 18.39(H) 3.70 - 10.30 10*3/uL [...] ORDERABLES Sarah l Result Performing Organization Address City/[facility]/ZIP Co de Phone Number [facility] [address] [place] [address] * Phosphorus (07/19/2025 4:28 AM EDT) Only the most recent 12 resultswithin the time period is included. Phosphorus, Plasma 3.6 2.5 - 4.5 mg/dL 07/19/2025 5:03 AM EDT [facility] Blood Venous blood specimen / Unknown Venipuncture / Unknown 07/19/2025 4:28 AM EDT 07/19/2025 4:35 AM EDT us Anne Franco MD LAB BLOOD ORDERABLES Sarah l Result Performing Organization Address [facility] Co de Phone Number [facility] [address] [place] [address] * (ABNORMAL) Magnesium (07/19/2025 4:28 AM EDT) Only the most recent 12 resultswithin the time period is included. Magnesium, Plasma 1.8(L) 1.9 - 2.4 mg/dL 07/19/2025 5:03 AM EDT [facility] Blood Venous blood specimen / Unknown Venipuncture / Unknown 07/19/2025 4:28 AM EDT 07/19/2025 4:35 AM EDT us Anne Franco MD LAB BLOOD ORDERABLES Sarah l Result Performing Organization Address City/[facility]/ZIP Co de Phone Number [facility] [address] [place] [address] * (ABNORMAL) Basic metabolic panel (07/19/2025 4:28 AM EDT) Only the most recent of13 resultswithin the time period is included. Glucose, Plasma 153(H) 74 - 99 mg/dL [...] bennett Result [facility] [address] [place] [address] * PERIPHERAL IV (SMARTFORM LINK) (07/17/2025 5:14 PM EDT) Only the most recent of2 resultswithin the time period is included. Narrative Arturo Mancilla RN - 07/17/2025 5:14 [...] IV THERAPY ORDERABLES Fin al Result * US Extremity Limited MSK or Soft [...] Detected Not Detected 07/17/2025 12:11 PM EDT [facility] Swab Both anterior nares / Unknown Non-blood [...] Final Result [facility] [address] [place] [address] * XR Chest 1 View (07/16/2025 11:25 AM EDT) Only the most recent of3 resultswithin the time period is included. Anatomical Region Laterality Modality Chest Digital Radiogra [...] CV VASCULAR PROCEDURES Fi nal Result * RI AN ELECTIVE ENDOTRACHEAL AIRWAY, PB ANESTHESIA PLACEHOLDER (07/14/2025 2:53 PM EDT) Narrative Azul Eisenberg CRNA, DNP - 07/14/2025 2:53 PM EDT Azul Eisenberg CRNA, DNP 07/14/2025 3:04 PM Airway Date/Time: 07/14/2025 2:53 PM Reason: elective Airway not difficult General Information and Staff Patient location during procedure: OR [employer]OM: Azul Eisenberg CRNA, DNP Performed: [facility] Patient [...] Taylor MD ANESTHESIA ORDERABLES Final Re sult * (ABNORMAL) POCT Glucose (if patient NPO, on TPN or continuous nutrition) (07/11/2025 8:45 PM EDT) Only the most recent of2 resultswithin the time period is included. POCT Glucose 119(A) 74 - 99 mg/dL [facility] Test Strip Lot Number [id number]\ HEALTHCARE LAB Test Strip Expiration 09/24/2026 [facility] Blood Venous blood specimen / Unknown 07/11/2025 8:45 PM EDT Dorcas Hennessy MD POINT OF CARE TEST ENTER/EDIT OR DERABLES Final Result [facility] [address] [place] [address] * RI AN ELECTIVE ENDOTRACHEAL AIRWAY, PB ANESTHESIA PLACEHOLDER (07/11/2025 2:23 PM EDT) Narrative Luis Maneul Sharpe CRNA - 07/11/2025 2:23 PM EDT Luis Manuel Sharpe CRNA 07/11/2025 2:37 PM Airway Date/Time: 07/11/2025 2:23 PM Reason: elective Airway not difficult General Information and Staff Patient location during procedure: OR WE[employer]ER W[employer] LOOM: Luis Manuel Sharpe CRNA Performed: WEAVER WIRE LOOM Patient Condition Indications for airway management: anesthesia [...] Fulton MD ANESTHESIA ORDERABLES Final Res ult * RI CRITICAL CARE, E/M 30-74 MINUTES [...] CLINIC/BEDSIDE ORDERABLES Fin al Result * (ABNORMAL) Blood gas panel, arterial (07/10/2025 8:23 PM EDT) Only the most recent of6 resultswithin the time period is included. pH, Arterial 7.30(L) 7.35 - 7.45 LAB [...] PM EDT 07/10/2025 8:35 PM EDT us Brittany Crawford MD LAB BLOOD ORDERABLES Final Result [facility] [address] [place] [address] * XR Abdomen 1 View (07/10/2025 12:03 [...] of the abdomen. COMPARISON: None. FINDINGS: Limited [id number] abdominal radiograph for the purpose of locating tube position. The tip of the nasogastric tube is within the mid stomach. Procedure Note Bernabe Sen MD - 07/10/2025 CLINICAL INDICATION: feeding tube placement TECHNIQUE: Supine radiograph of the abdomen. COMPARISON: None. FINDINGS: Limited [id number] abdominal radiograph for the purpose of locatingtube position. The tip of the nasogastric tube is within the mid stomach. IMPRESSION: The tip of the nasogastric tube is within the mid stomach. CRITICAL RESULT: No. COMMUNICATION: Per this written report. Drafted by Bernabe Sen MD on 07/10/2025 12:32 PM Final report signed by Bernabe Sen MD on 07/10/2025 12:32 PM us Brittany Crawford MD IMG XR PROCEDURES Final Re sult * ECG Adult (07/10/2025 8:42 AM EDT) EKG DIAGNOSIS CLASS Abnormal MUSE ECG Ventricular Rate 79 BPM MUSE ECG Atrial Rate 79 BPM MUSE ECG RI Interval 188 ms MUSE ECG QRSD Interval 90 ms MUSE ECG QT Interval 354 ms MUSE ECG QTC Interval 405 ms MUSE ECG P Zaleski 44 degrees MUSE ECG R Zaleski 17 degrees MUSE ECG T Wave Zaleski 27 degrees MUSE ECG Diagnosis Sinus rhythm with frequent premature ventricular complexes MUSE ECG Diagnosis Low voltage QRS MUSE ECG Diagnosis Cannot rule out Anterior infarct , age undetermined MUSE ECG Diagnosis MUSE ECG Diagnosis MUSE ECG Diagnosis Confirmed by Octavio Walsh ([id number]) on 07/10/2025 11:49:20 AM MUSE ECG 07/10/2025 8:42 AM EDT 07/10/2025 11:49 AM EDT us Brittany Crawford MD ECG ORDERABLES Final Resu lt [...] IN CLINIC/BEDSIDE ORDERABLES Fin al Result * Blood Culture (Aerobic/Anaerobet Set) (07/09/2025 10:35 AM EDT) Only the most recent of2 resultswithin the time period is included. Culture No growth at day 5 KAROLINA 07/14/2025 12:02 PM EDT [facility] Blood Structure of antecubital vein / Unknown Venipuncture / Unknown 07/09/2025 10:35 AM EDT 07/09/2025 10:50 AM EDT us Kyle Mckinney MD LAB MICROBIOLOGY - GENE RAL ORDERABLES Final Result [facility] [address] [place] [address] * Multi Drug Resistance Test (07/09/2025 9:46 AM EDT) Only the most recent of2 resultswithin the time period is included. Culture No growth at day 1 07/10/2025 11:58 AM EDT [facility] Swab (Nares and Leann Rectal) Non-blood Collection / Unknown 07/09/2025 9:46 AM EDT 07/09/2025 10:09 AM EDT Narrative [facility] - 07/10/2025 11:58 AM EDT This test was developed and its performance characteristics determined by the [facility]. Although the media is FDA-approved, it is not FDA-approved for all specimen types submitted. The FDA has determined that such clearance or approval is not necessary. This test is used for surveillance purposes. It should not be regarded as investigational or for research. The [facility] is certified under the Clinical Laboratory Improvement Amendments of 1988 (CLIA-88) as qualified to perform high complexity clinical laboratory testing. us Brittany Crawford MD LAB MICROBIOLOGY - GENERAL ORDERABLES Final Result [facility] [address] [place] [address] * RI CRITICAL CARE, E/M 30-74 MINUTES [...] CLINIC/BEDSIDE ORDERABLES Fin al Result * (ABNORMAL) Hemoglobin A1c (07/09/2025 4:57 AM [...] Adults <6.0% Children and Adolescents <7.5% Source: [place] [employer]. Standards of medical care in diabetes,2017. Diabetes Care.2017:40 (suppl 1):S1-S135. us Dorcas Hennessy MD LAB BLOOD ORDERABLES Final Resul t Performing Organization Address City/[facility]/ZIP Co de Phone Number [facility] [address] [place] [address] * APTT (07/08/2025 11:53 PM EDT) aPTT 25 25 - 35 sec LAB COAGULATION METHOD 07/09/2025 12:32 AM EDT [facility] Blood Venous blood specimen / Unknown Venipuncture / Unknown 07/08/2025 11:53 PM EDT 07/08/2025 11:59 PM EDT us Brittany Crawford MD LAB BLOOD ORDERABLES Final Result Performing Organization Address City/[facility]/[place] [address] * (ABNORMAL) Protime-INR (07/08/2025 11:53 PM EDT) [...] INR 2.5 to 3.5 Prevention of recurrent IN INR 2.5 to 3.5 Brittany Crawford MD LAB BLOOD ORDERABLES Final Result Performing Organization Address [facility] Co de Phone Number [facility] [address] [place] [address] * Geno auris Surveillance by PCR (07/08/2025 11:50 PM EDT) Geno auris PCR Result Not Detected Not Detected 07/09/2025 11:26 AM EDT [facility] Swab (Axilla and Groin) Non-blood Collection / Unknown 07/08/2025 11:50 PM EDT 07/09/2025 12:17 AM EDT Narrative [facility] - 07/09/2025 11:26 AM EDT This PCR assay was developed and its performance characteristics determined by [facility] as appropriate for clinical purposes. This assay has not been cleared or approved by the FDA, but is performed in a CLIA regulated laboratory that is qualified to perform high-complexity testing. Brittany Crawford MD LAB MICROBIOLOGY - GENERAL ORDERABLES Final Result Performing Organization Address [facility] Co de Phone Number [facility] [address] [place] [address] * (ABNORMAL) Tissue Culture and Gram Stain (07/08/2025 10:48 PM EDT) Culture Light Growth 07/13/2025 1:13 PM EDT [facility] Culture 1+ Schaalia turicensis (formerly known as Actinomyces turicensis)(A) 07/13/2025 1:13 PM EDT [facility] Comment: The organism value for this result has been updated. These results have been appended to the previously preliminary verified report. This is a corrected result. Previous organism was Gram positive anthony on 07/11/2025 at 1052 EDT. Culture 1+ Staphylococcus hominis(A) 07/13/2025 1:13 PM EDT [facility] Comment: This isolate has been identified using the FDA Approved Red Rabbit incer CA System The organism value for this [...] fasciitis (CMS/HCC) [M72.6] Brittany Crawford MD LAB MICROBIOLOGY - GENERAL ORDERABLES Final Result [facility] [address] [place] [address] * Transfuse fresh frozen plasma (07/08/2025 10:35 PM EDT) Only the most recent of2 resultswithin the time period is included. Richard N Luisitog WE[employer]ER [employer] LOOM BLOOD TRANSFUSION ORDERAB LES Final Result * Transfuse RBC (07/08/2025 10:29 PM EDT) Only the most recent of2 resultswithin the time period is included. Richard N Luisitog WE[employer]ER W[employer] LOOM BLOOD TRANSFUSION ORDERAB LES Final Result * Surgical Pathology Exam (07/08/2025 10:07 PM EDT) Case Report Surgical Pathology Case: [id number] Authorizing Provider: Brittany Crawford MD Collected: 07/08/20255 Ordering Location: [facility] A OPERATING ROOM Received: 07/09/2025 0740 [...] reveal a pinpoint lumen with dried blood. Felt Finishing Supervisor sections are taken and submitted in cassette A1. Cold Time: 8h 56m Abhishek Baptiste MD B. RIGHT LEG Specimen is received fresh labeled right leg. Received are numerous fragments of skin and underlying soft tissue that measure in aggregate 25.0 x 25.0 x 7.5 cm. Scattered areas of skin and soft tissue notable for being green-black, foul-smelling and extensively necrotic. Felt Finishing Supervisor sections are taken and submitted in cassettes [...] (CMS/HCC) [M72.6] us Brittany Crawford MD LAB PATHOLOGY ORDERABLES F inal Result Performing Organization Address [facility]/ZIP Co de Phone Number [facility] [address] [place] [address] * Prepare Fresh Frozen Plasma: 2 Units (07/08/2025 9:24 PM EDT) Product Code [id number] [facility] Dispense Status Transfused [facility] Blood Expiration Date [id number] [facility] Unit Number [id number] [facility] Product Blood Type 5100 [facility] Blood Type O+ [facility] Product Code [id number] [facility] Dispense Status Transfused [facility] Blood Expiration Date [id number] BLOOD BANK Unit Number [id number] [facility] Product Blood Type 5100 BLOOD BANK Blood Type O+ [facility] Blood Venous blood specimen / Unknown us Richard Betts CRNA BLOOD BANK PRODUCT ORDERA BLES Final Result Performing Organization Address [facility] Co de Phone Number BLOOD BANK [address] * Prepare Leukocyte Reduced RBC: 2 Units (07/08/2025 9:23 PM EDT) Product Code [id number] [facility] Dispense Status Transfused [facility] Blood Expiration Date [id number] [facility] Unit Number [id number] [facility] B LOOD B[facility] Product Blood Type 5100 [facility] Blood Type O+ [facility] Crossmatch Compatible [facility] Product Code [id number] [facility] Dispense Status Transfused [facility] Blood Expiration Date [id number] [facility] Unit Number [id number] [facility] Product Blood Type 5100 [facility] Blood Type O+ [facility] Crossmatch Compatible BLOOD BANK Other us Richard Carlos Betts CRNA BLOOD BANK PRODUCT ORDERA BLES Final Result [facility] [place] [address], [place] * (ABNORMAL) Abscess Culture and Gram Stain [...] developed and its performance characteristics determined by [facility] as appropriate for clinical purposes. [...] (CMS/HCC) [M72.6] us Brittany Crawford MD LAB MICROBIOLOGY - GENERAL ORDERABLES Final Result [facility] [address] [place] [address] * (ABNORMAL) POCT arterial blood gas gem (07/08/2025 8:51 PM EDT) pH, Arterial 7.28(L) 7.35 - 7.45 07/08/2025 8:53 PM EDT [facility] pCO2, Arterial 53(H) 35 - 48 mm Hg 07/08/2025 8:53 PM EDT [facility] pO2, Arterial 152(H) 83 - 108 mm Hg 07/08/2025 8:53 PM EDT [facility] SO2, Arterial 99(H) 94 - 98 % 07/08/2025 8:53 PM EDT [facility] Base Excess, Arterial -2.3(L) -2 - 3 mmol/L 07/08/2025 8:53 PM EDT [facility] HCO3, Arterial 24.9 22 - 26 mmol/L 07/08/2025 8:53 PM EDT [facility] Total Hemoglobin, Arterial, Whole Blood 10.9(L) 11.2 - 15.7 g/dL 07/08/2025 8:53 PM EDT [facility] Hematocrit, Arterial 33.0(L) 34.0 - 45.0 % 07/08/2025 8:53 PM EDT [facility] Sodium, Arterial 131(L) 136 - 145 mmol/L 07/08/2025 8:53 PM EDT [facility] Potassium, Arterial 3.8 3.6 - 4.9 mmol/L 07/08/2025 8:53 PM EDT [facility] Chloride, Whole Blood 98 97 - 107 mmol/L 07/08/2025 8:53 PM EDT [facility] Glucose, Arterial 418(H) 74 - 99 mg/dL 07/08/2025 8:53 PM EDT [facility] Ionized Calcium, Arterial 4.9 4.6 - 5.1 mg/dL 07/08/2025 8:53 PM EDT [facility] Lactate, Arterial 1.6 0.5 - 1.6 mmol/L 07/08/2025 8:53 PM EDT [facility] Body Temperature 37.0 Celsius 07/08/2025 8:53 PM EDT [facility] pH, Temp Corrected, Arterial 7.28(L) 7.35 - 7.45 07/08/2025 8:53 PM EDT [facility] pCO2, Temp Corrected, Arterial 53(H) 35 - 48 mm Hg 07/08/2025 8:53 PM EDT [facility] pO2, Temp Corrected, Arterial 152(H) 83 - 108 mm Hg 07/08/2025 8:53 PM EDT [facility] Clothing Man ID Yadi Goel 07/08/2025 8:53 PM EDT [facility] Blood, Arterial Whole blood specimen / Unknown 07/08/2025 8:51 PM EDT 07/08/2025 8:53 PM EDT us Brittany Crawford MD LAB POINT OF CARE TEST DOCKED DEVICE UNSOLICITED RESULTS Final Result Performing Organization Address City/State/[facility] Co de Phone Number [facility] [address] [place], [place] [id number] * RI AN CENTRAL LINE TRIPLE LUMEN, PB ANESTHESIA [...] MD ANESTHESIA ORDERABLES Final R esult * RI AN ELECTIVE ENDOTRACHEAL AIRWAY, PB ANESTHESIA PLACEHOLDER (07/08/2025 8:28 PM EDT) Narrative Richard Betts CRNA - 07/08/2025 8:28 PM EDT Richard Betts CRNA 07/08/2025 8:39 PM Airway Date/Time: 07/08/2025 8:28 PM Reason: elective Airway not difficult General Information and Staff Patient location during procedure: OR WE[employer]ER WIRE LOOM: Richard Betts CRNA Performed: WE[employer]ER W[employer] LOOM Patient Condition Indications for airway management: anesthesia [...] nal Result [facility] [address] [place] [address] * (ABNORMAL) Lactic acid, venous (07/08/2025 6:14 PM EDT) Lactate, Venous, Whole Blood 2.6(H) 0.5 - 2.2 mmol/L LAB HEMATOLOGY METHOD 07/08/2025 6:29 PM EDT [facility] Blood Venous blood specimen / Unknown Venipuncture / Unknown 07/08/2025 6:14 PM EDT 07/08/2025 6:23 PM EDT Kyle Mckinney MD LAB BLOOD ORDERABLES Fi nal Result Performing Organization Address City/[facility]/ZIP Co de Phone Number [facility] [address] [place] [address] * Hepatitis C Antibody - ED (07/08/2025 6:14 PM EDT) Hepatitis C Antibody Negative Negative 07/08/2025 7:12 PM EDT [facility] Blood Venous blood specimen / Unknown Venipuncture / Unknown 07/08/2025 6:14 PM EDT 07/08/2025 6:30 PM EDT Kyle Mckinney MD LAB BLOOD ORDERABLES Fi nal Result Performing Organization Address [facility]/ZIP Co de Phone Number [facility] [address] [place] [address] * (ABNORMAL) CBC w/diff (07/08/2025 6:14 PM [...] based on absolute values, rather than percentages. Kyle Mckinney MD LAB BLOOD ORDERABLES Fi nal Result [facility] [address] [place] [address] * Type and screen (07/08/2025 6:14 PM [...] ORD ERABLES Final Result Performing Organization Address City/[facility]/ZIP Co de Phone Number BLOOD BANK [address] [place] [address], [place] * (ABNORMAL) C-Reactive protein (07/08/2025 6:14 PM EDT) CRP, Plasma 462.2(H) <=8.0 mg/L 07/08/2025 7:18 PM EDT [facility] Blood Venous blood specimen / Unknown Venipuncture / Unknown 07/08/2025 6:14 PM EDT 07/08/2025 6:23 PM EDT Narrative [facility] - 07/08/2025 7:18 PM EDT This CRP test is appropriate for assessment of infection, systemic inflammation and/or tissue injury. To assess cardiovascular disease risk order high sensitivity CRP (CRPH). us Kyle Mckinney MD LAB BLOOD ORDERABLES Fi nal Result [facility] [address] [place] [address] * (ABNORMAL) CMP (07/08/2025 6:14 PM EDT) [...] nal Result [facility] [address] [place] [address] * RI CRITICAL CARE, E/M 30-74 MINUTES [...] Final Result from Last 3 Months Insurance [facility] MEDICAID Care Teams Ferris Wheel Attendant Relationship Specialty Start Date End Date Yenny Dhillon APRN [address] [place] [address] PCP - General 07/22/23
[2025-08-02 23:31] VITALS: BP 133/87; PULSE 96; RESP 18; TEMP 36.7; O2SAT 97
== END 2025-08-02 23:25 | disposition home or self-care (01) ==
PROVIDERS: Emergency Provider Emergency Medicine; PCP Nurse Practitioner Family
DX: Z48.01 Encounter for change or removal of surgical wound dressing (principal)
CPT/HCPCS: 99282

== ENCOUNTER 2025-08-11 10:40 | Emergency (ER) | payer OTHER, SELFPAY ==
--- OUTSIDE RECORDS SUMMARY | 2025-07-08 17:58 | XMS_ITS | Encounter Summary ---
Author Organization [facility] Address [address] [place] [address] Care Team Providers Care Press Tender Smoke Signal Name Role Phone Alejo Yenny Lit CASTRO Primary Care Provider [phone] Reason for Referral * Consultation (Routine) - Authorized Specialty Diagnoses / Procedures Referred By Bharati wiggins Referred To Contact Endocrinology Diagnoses Morbid (severe) obesity due to excess calories (CMS/HCC) Type 2 diabetes mellitus with hyperglycemia, without long-term current use of insulin Celiac disease Sherrill Villa APRN [address] [place] [address] Phone: tel: fax: Referral ID Status Reason Start Date Expiration Date Visits Requested Visits Authorized [id number] Authorized Specialty Services Required 07/15/2025 01/14/2027 [address] Oliva is accepting new patients. Her office is located at the [facility] in the [facility] Physician Building, [address], [address] For an appointment, please call . Reason for Visit * Reason Comments Wound Check * Auth/Cert (Routine) Specialty Diagnoses / Procedures Referred By Bharati wiggins Referred To Contact Diagnoses Necrotizing fasciitis (CMS/HCC) Necrotizing Fascitis Luanne Crawford MD [address] [address] Phone: tel: fax: P[facility] A Inpatient [address] [place] [address] Phone: tel: Referral ID Status Reason Start Date Expiration Date Visits Re quested Visits Authorized [id number] 1 1 Encounter Details Date Type Department Care Team (Late st Contact Info) Description 07/08/2025 5:58 PM EDT - 07/19/2025 12:56 PM EDT Hospital Encounter [facility] Inpatient [address] [place] [id number] My Charles MD [address] [place] [address] Luanne Crawford MD [address] [place] [phone] Dorcas Hennessy MD [address] [address] Anne Franco MD [address] [place] [phone] Necrotizing fasciitis (CMS/HCC) (Primary Dx); Necrotizing [...] any time in the past 12 m [facility], were you homeless or living in a longterm (including now)? No 07/15/2025 [facility] Utilities Answer Date Recorded In the past [...] please call our General Surgery Clinic at [phone]. If there are questions or concerns after discharge from the hospital, call Radha Ugalde, Nurse Coordinator between 7am-3pm at [phone]. If it is after hours, weekends, and holidays please call [phone] and ask for the resident overnight houseperson for Emergency General Surgery. Medication requests should be made between the hours of 9:00 AM to 3:00 PM Tuesday thru Tuesday. Please note that based upon recent changes to [place] law related to prescribing opioid pain medications, [...] Outcome: Met Intervention: Promote Activity and Functional [place] Flowsheets Taken 07/18/20252319 by Inessa Almazan, RN [...] Cristina Escobar Kevin 50 y.o. female CSN: [id number] Admission: 07/08/2025 5:58 PM Primary Problem: Necrotizing fasciitis (CMS/HCC) Primary Nurses' Registry Director: Primary Caregiver: Self Assistance Available at Discharge: [...] to assess Medicare Documentation: N/A Follow-up: Keaton Ptael MD [address] [place] [address] [facility] [address] [facility] [address] Go on 07/19/2025 Discharge Transportation: Transportation Anticipated: [...] arranged for this date at 1400 from [facility]. Annie Littlejohn * Raj Peres RN - 07/19/2025 9:44 AM EDT Images from the original note were not included. 1087 Oxycodone Oral Tablet, Immediate Release Brand Names: Oxaydo, Roxicodone What is this medicine? Oxycodone (eq-r-LTM-done) is an opioid pain reliever. It is used to treat moderate to severe pain. What should I tell my health care provider before I take this medicine? They need to know if you have any of these conditions: ? [place]'s disease ? Brain tumor or head injury [...] a special medication guide each time you apple picker this medicine. ? Overdosage: Taking too [...] should report to your doctor or health vocational childcare teacher as soon as possible: ? allergic reactions [...] attention (report to your doctor or health vocational childcare teacher if they continue or are bothersome): ? constipation ? dry mouth ? itching ? nausea, vomiting ? upset stomach This list may not describe all possible side effects. Call your doctor for medical advice about side effects. You may report side effects to FDA at 9-981-GXB-1629. Where should I keep my medicine? This [...] location. To find a disposal location, visit [employer]/[facility]/[place]. If you cannot take unused medicine to a proper location, you can mix the medicine with coffee grounds or jose litter and dispose of in the normal trash. Your doctor may also give you a special disposal pouch for this medicine. You can also flush the medicine down the toilet. * [facility] - Raj Cardona RN - 07/19/2025 9:44 AM EDT Images from the original note were not included. [id number] Naloxone Nasal [place] WHY is this medicine prescribed? Prescription and [...] pharmacist for the instructions or visit the referral and information aide's website to get the instructions. You should [...] or doctor for a copy of the referral and information aide's information for the patient. Are there OTHER [...] and out of their sight and reach. https://www.[employer] Dispose of unneeded medications in a way [...] of all of the prescription and nonprescription (cddu-uzo-vicruko) medicines, vitamins, minerals, and dietary supplements you [...] or pharmacist about specific clinical use. The [place] [employer]. represents that the information provided hereunder was formulated with a reasonable standard of care, and in conformity with professional standards in the field. The [place] [employer]. makes no representations or warranties, express or implied, including, but not limited to, any implied warranty of merchantability and/or fitness for a particular purpose, with respect to such information and specifically disclaims all such warranties. Users are advised that decisions regarding drug therapy are complex medical decisions requiring the independent, informed decision of an appropriate health vocational childcare teacher, and the information is provided for informational purposes only. The entire monograph for a drug should be reviewed for a thorough understanding of the drug's actions, uses and side effects. The [place] [employer] does not endorse or recommend the use of any drug.The information is not a substitute for medical care. AHFS?? Patient Medication Information?. ?? Copyright, 2023. The [place] [employer]-System Pharmacists??, [address], [address], [place], [place]. All Rights Reserved. Duplication for commercial use must be authorized by [facility]. Selected Revisions: May 26, 2024. AHFS?? Patient [...] of Drug Diversion Investigators (NADAJIT): http://rxdrugdropbox.org/ ? [place] Office of Drug Control Policy: http://odcp.[place].gov/Prescription+Drug+Drop+Box+Sites.htm Are [...] that tracks prescriptions of controlled substances in [place]. The DANYELLE report tells your doctor if [...] or your doctor may then call the [place] Drug Enforcement and Professional Practices Branch at .This will start an investigation of the error. * Gauri Rico - Raj Cardona RN - 07/19/2025 9:44 AM EDT Images from the original note were not included. 66690 Insulin: How to Use and Where to [...] Safe Community Needle Disposal at www.safeneedledisposal.org or 425-131-5061. Storing your insulin ? Keep unopened insulin [...] cold. Last Reviewed Date: 2023 00:00:00 ?? 2093-0443 The [employer]. All rights reserved. This information is not intended as a substitute for professional medical care. Always follow your healthcare professional's instructions. * Gauri Lou[facility]FIRST[facility] - Raj Cardona RN - 07/19/2025 9:43 AM EDT Images from the original note were not included. [id number] Diet: Diabetes Food is an important tool [...] of Nutrition and Dietetics at www.eatright.org o [place] Diabetes Association at www.diabetes.org or 247-141-8864 o Association of Diabetes Care and Education Specialists at www.diabeteseducator.org/ Last Reviewed Date: 2024 00:00:00 ?? 7640-5559 The [employer]. All rights reserved. This information is not intended as a substitute for professional medical care. Always follow your healthcare professional's instructions. * Gauri Rico - Raj Cardona RN - 07/19/2025 9:43 AM EDT Images from the original note were not included. 80796 Diabetes: Understanding Carbohydrates, Fats, and Protein Food [...] Last Reviewed Date: 2024 00:00:00 ?? The [employer]. All rights reserved. This information is not intended as a substitute for professional medical care. Always follow your healthcare professional's instructions. * Gauri Rico - Raj Cardona RN - 07/19/2025 9:43 AM EDT Images from the original note were not included. 70204 Discharge Instructions: Packing a Wound You have [...] chills. Last Reviewed Date: 2025 00:00:00 ?? 2514-0930 The [employer]. All rights reserved. This information is not intended as a substitute for professional medical care. Always follow your healthcare professional's instructions. * Jodycynthia Jacky - Raj Cardona RN - 07/19/2025 9:43 AM EDT Images from the original note were not included. 30787 Negative Pressure Wound Therapy Negative pressure wound [...] device. Last Reviewed Date: 2024 00:00:00 ?? 1136-7379 The [employer]. All rights reserved. This information is not intended as a substitute for professional medical care. Always follow your healthcare professional's instructions. * Gauri Rico - Raj Cardona RN - 07/19/2025 9:43 AM EDT Images from the original note were not included. 24835 Discharge Instructions: Changing Your Dressing You are [...] doctor. Last Reviewed Date: 2025 00:00:00 ?? 8572-3440 The [employer]. All rights reserved. This information is not intended as a substitute for professional medical care. Always follow your healthcare professional's instructions. * Gauri Rico - Raj Cardona RN - 07/19/2025 9:42 AM EDT Images from the original note were not included. 805746kg Abscess (Incision and Drainage) An abscess is [...] treatment. Last Reviewed Date: 2024 00:00:00 ?? 1719-8706 The [employer]. All rights reserved. This information is not intended as a substitute for professional medical care. Always follow your healthcare professional's instructions. * Gauri LouieJANETH - Raj Cardona RN - 07/19/2025 9:42 AM EDT Images from the original note were not included. 97719 Preventing a Surgical Site Infection A risk [...] of infection. ? Controlled body temperature. A mppsc-bvdq-ijmbfj temperature during or after surgery prevents oxygen [...] and water or with an alcohol-based hand egg separator before and after caring for you. Don?t [...] away. Last Reviewed Date: 2024 00:00:00 ?? 6022-4836 The [employer]. All rights reserved. This information is not [...] to the condition itself. It comes from Turkish and Latin words for a gnawing sore [...] questions. Last Reviewed Date: 2023 00:00:00 ?? 6119-9456 The [employer]. All rights reserved. This information is not intended as a substitute for professional medical care. Always follow your healthcare professional's instructions. * Discharge Summary - DajuanBecky, ASSISTANT BUYER - 07/19/2025 9:31 AM EDT Images from the original note were not included. Hospitalization Admit Date/Time: 07/08/2025 5:58 PM Admitting Attending: Luanne Crawford Discharge Date: 07/19/25 Discharge Attending Physician: Anne Franco MD PCP name and Address: Yenny Dhillon, ASSISTANT BUYER [address] [facility] [address] [place] [address] Referring provider name and address: Keaton Patel MD [address] [place] [address] [place] [address] Chief Concern, Brief History of Present Illness, and Hospital Course Cristina Brown is a 50 y.o. female with PMH of DM, hidradenitis supparativa, current smoker (1.5ppd), hx of absent seizures, UTI, depression, anxiety, asthma, HLD, celiac disease, presenting to [facility] on 07/08/2025 as transfer with concern [...] Right groin wound exploration and washout 07/11 ([facility]) Right groin/perineum/thigh/abdominal wound exploration and washout [...] stay, and so will be discharged to [facility] Surgeries and Procedures Procedures performed in this [...] Your Medications These medications were sent to [facility] - [place], [place] - [address] [facility] [id number] naloxone 4 mg/0.1 mL nasal spray Information [...] dressing in place, sutures removed on rounds. [facility] can re- apply negative pressurewound therapy: Wound [...] please call our General Surgery Clinic at [phone]. If there are questions or concerns after discharge from the hospital, call Radha Ugalde, Nurse Coordinator between 7am-3pm at [phone]. If it is after hours, weekends, and holidays please call [phone] and ask for the resident overnight houseperson for Emergency General Surgery. Medication requests should be made between the hours of 9:00 AM to 3:00 PM Tuesday thru Tuesday. Please note that based upon recent changes to [place] law related to prescribing opioid pain medications, [...] normal. Judgment: Judgment normal. Discharge Disposition/Condition Disposition: [facility] Condition: Stable (s/sx potential problems absent or manageable) I spent >30 minutes of patient care and instruction time in preparation for this discharge. Cosigned by Anne Franco MD at 07/19/2025 10:21 AM EDT * Progress Notes - Sherirll Villa APRN - 07/19/2025 8:50 AM EDT [...] HLD, celiac disease who initially came to [facility] on 07/08/2025 as transfer with concern [...] to establish care with endocrine provider in [place], [place]. --> Provided patient with address and number of clinic. [[facility] Endocrinology Clinic in the [facility] Physician Building]. -Tentative discharge recommendations: Likely [...] team via secure chat orpage us at [phone] during 7a-7p, Tuesday-Tuesday. For after hours please [...] Morbid (severe) obesity due to excess calories (CMS/[facility]) Complicates all aspect of care * Assessment [...] and newly diagnosed JOSEP who presented to [facility] with leukocytosis and exam findings consistent with [...] night Postoperative pain Present on Admission: Unknown [facility] Hypoxia Present on Admission: Unknown Non-Hospital Problems [...] the brett pad. After discussion with chief overnight houseperson, decision was made to remove the [place] and place a gpn-zzf-migqviny with Kerlix, Polymem, ABD pads, and skin [...] Note Cristina Brown 50 y.o. female CSN: [id number] Admission: 07/08/2025 5:58 PM Primary Problem: Necrotizing fasciitis (CMS/HCC) Anticipated Discharge Date: 07/19/25 Has Discharge Plans Changed? Yes [facility] Acute Rehab Medicare Second Notice: Housing Circumstances: Low Income ( 101-300% Federal Poverty Guideline) Housing Circumstances Action Taken: Medically Ready for Discharge: Anticipated Tomorrow Additional Comments Per the MD pt is medically ready to d/c after she can tolerate her wv being changed without IV painmedication. SW talked with the pt and she is agreeable to go to [facility] however she still has a lot [...] the MD team. Pt will transfer to [facility] via shuttle on 07/19 if all [...] HLD, celiac disease who initially came to [facility] on 07/08/2025 as transfer with concern [...] to establish care with endocrine provider in [place], [place]. --> Provided patient with address and number of clinic. [[facility] End[facility] Clinic in the [facility] Physician [facility]]. -Tentative discharge recommendations: Likely [...] team via secure chat orpage us at [phone] during 7a-7p, Tuesday-Tuesday. For after hours please [...] Ongoing, Progressing Intervention: Promote Activity and Functional [place] Flowsheets (Taken 07/18/2025204) Activity Assistance Provided: assistance, [...] Ongoing, Progressing Intervention: Promote Activity and Functional [place] Flowsheets Taken 07/16/2025 0635 by Yessenia Ramirez [...] HLD, celiac disease who initially came to [facility] on 07/08/2025 as transfer with concern [...] to establish care with endocrine provider in [place], [place]. --> Provided patient with address and number of clinic. [[facility] End[facility] Clinic in the [facility] Physician [facility]]. -Tentative discharge recommendations: Likely [...] via secure chat or page us at [phone] during 7a-7p, Tuesday-Tuesday. For after hours please [...] [facility] [place] CM notified. * Assessment & Plan Note - Jason Andre MD - 07/17/2025 10:21 AM EDT Associated Problem(s): Necrotizing fasciitis (CMS/[facility]) - 07/09: debridement of necrotizing fasciitis in [...] night Postoperative pain [facility] Present on Admission: Unknown Non-Hospital [...] admission Level of Mobility Ambulatory- community Mobility [place] Independent gait without device History of Falls [...] motivated and engaged throughout Visitors Present None Aircraft Maintenance Director (if applicable) OBJECTIVE PAIN Rates pain at [...] needed areas of treatment space Level of [place] Interventions: Feeding Independent Edge of bed Patient [...] Level of Assistance: Moderate assistance Adaptive Equipment: Clip On Sunglasses Inspector, Sock aide Training and demonstration provided for use and functionality of sock aid, leg floorworker distributor strap and crepe machine operator tool to support independence with LB [...] and prioritizing during ADL performance. Access Code: [email or web address] URL: [email or web address] Putting On Socks with a Sock Aid Putting On and Taking Off Pants Using a Clip On Sunglasses Inspector Using a Leg Order Tracer Adaptive Equipment for Bathing & Showering Understanding Energy Conservation BED MOBILITY Level of [place]ann[place] Physical/Non- physical Assist Adaptive Equipment Utilized Supine to Sit Modified Fannin Bed rails TRANSFERS Level of [place]ann[place] Physical/Non- physical Assist Adaptive Equipment Utilized Sit [...] admission Level of Mobility Ambulatory- community Mobility [place] Independent gait without device History of Falls [...] unaware when pt may be discharged from [facility]. Aircraft Maintenance Director (if applicable) Not Applicable OBJECTIVE & INTERVENTIONS [...] pt's true mobility BED MOBILITY Level of [place]ann[place] Physical/Non- physical Assist Adaptive Equipment Utilized Rolling/ Turning Scooting/ Bridging Supine to Sit Modified Fann[place] Bed rails Sit to Supine Interventions TRANSFERS Level of [place] Physical/Non- physical Assist Adaptive Equipment Utilized Sit to Stand Stand-by assist Supervision Rollator Stand to sit Stand-by assist Supervision Rollator Bed to Chair Toilet Transfer Shower Transfer Interventions BALANCE Postural Appearance Posture: Forward head, Rounded shoulders Level of Fannin Balance Support Interventions Static Sit Standby assist Feet supported Dynamic Sit Contact guard Feet supported Dynamic Sitting-Balance: Lateral weight shifts, Anterior/Posterior weight shifts Static Stand Contact guard Right upper extremity support, Left upper extremity support Standing in room prior to ambulation Dynamic Stand Contact guard Right upper extremity support, Left upper extremity support 3 bouts of approx 1 min each AMBULATION Level of Fann[place] Distance Adaptive Equipment Utilized Ambulation Contact guard [...] encouraged Taken 07/14/2025 1800 by Josi Ann assembler gold frame Review/Management: medications reviewed Intervention: Promote Injury-Free Environment Flowsheets (Taken 07/17/2025 045) Safety Promotion/Fall Prevention: activity supervised assistive device/personal items within reach clutter-free environment maintained fall prevention program maintained nonskid shoes/slippers when out of bed room organization consistent safety round/check completed Problem: Self-Care Deficit Goal: Improved Ability to Complete Activities of Daily Living Outcome: Ongoing, Progressing Intervention: Promote Activity and Functional [place] Flowsheets Taken 07/16/2025 0635 by Yessenia Ramirez [...] promoted Taken 07/14/2025 1800 by Josi Ann renderer/Support System Care: support provided Goal: Optimal Functional [...] Ongoing, Progressing Intervention: Promote Activity and Functional [place] Flowsheets Taken 07/16/2025 0635 by Yessenia Ramirez [...] promoted Taken 07/14/2025 1800 by Josi Ann renderer/Support System Care: support provided Goal: Optimal Functional [...] Care Reviewed With: patient 07/16/20251807 by Isha Colugna RN Outcome: Ongoing, Progressing Flowsheets (Taken 07/16/2025 [...] Ongoing, Progressing Intervention: Promote Activity and Functional [place] Flowsheets (Taken 07/16/2025 012 by Eulalia Estrada, [...] 3:01 PM EDT SW received call from District Court Reporter offering assistance for d/c planning. Her Callback #[phone] * Progress Notes - Daisy Sherrill Elva, ASSISTANT BUYER - 07/16/2025 8:59 AM EDT Endocrine - [...] HLD, celiac disease who initially came to [facility] on 07/08/2025 as transfer with concern [...] to establish care with endocrine provider in [place], [place]. --> Provided patient with address and number of clinic. [[facility] End[facility] Clinic in the [facility] Physician [facility]]. -Tentative discharge recommendations: Likely [...] team via secure chat orpage us at [phone] during 7a-7p, Tuesday-Tuesday. For after hours please [...] 6:52 AM EDT Associated Problem(s): Necrotizing fasciitis ([facility]) - 07/09: debridement of necrotizing fasciitis in [...] 6:52 AM EDT Associated Problem(s): Postoperative pain [facility] * Progress Notes - Jason Andre MD [...] Edited by: Jason Andre MD at 07/16/2025 0610 Relevant review of systems was obtained as [...] night Postoperative pain Present on Admission: Unknown [facility] Non-Hospital Problems Carpal tunnel syndrome Dehydration Hidradenitis [...] encouraged Taken 07/14/2025 1800 by Josi Ann assembler gold frame Review/Management: medications reviewed Intervention: Promote Injury-Free Environment Flowsheets (Taken 07/16/2025 0054) Safety Promotion/Fall Prevention: activity supervised assistive device/personal items within reach clutter-free environment maintained fall prevention program maintained nonskid shoes/slippers when out of bed room organization consistent safety round/check completed Problem: Self-Care Deficit Goal: Improved Ability to Complete Activities of Daily Living Outcome: Ongoing, Progressing Intervention: Promote Activity and Functional [place] Flowsheets (Taken 07/16/2025 012) Self-Care Promotion: independence encouraged BADL personal objects within reach BADL personal routines maintained adaptive equipment use encouraged Problem: Wound Goal: Optimal Coping Outcome: Ongoing, Progressing Intervention: Support Patient and Family Response Flowsheets Taken 07/16/2025128 by Eulalia Estrada RN Supportive Measures: active listening utilized verbalization of feelings encouraged problem-solving facilitated relaxation techniques promoted Taken 07/14/2025 1800 by Josi Ann renderer/Support System Care: support provided Goal: Optimal Functional [...] Ongoing, Progressing Intervention: Promote Activity and Functional [place] Flowsheets Taken 07/15/2025 1745 by Denia Boo [...] provided Taken 07/14/2025 1800 by Josi Ann renderer/Support System Care: support provided Goal: Optimal Functional [...] Note Cristina Brown 50 y.o. female CSN: [id number] Room/Bed 123/123A Nutrition evaluation type: follow-up Reason for evaluation: Hospital course: 50 y o F transferred from [facility] with concern for necrotizing fasciitis; OR 07/08 for excisional debridement of RLE, groin, pubis, and abdominal wall of skin, subcutaneous tissue, and muscle fascia, [id number]. Septic shock secondary to NSTI. Intubated & [...] Estimated Needs: Kcal: 25-27 kcal/kg adj bw (4565-5903 kcal/d) Protein: 1.5-1.7 g/kg adj bw (143-162 [...] Note Cristina Brown 50 y.o. female CSN: [id number] Admission: 07/08/2025 5:58 PM Primary Problem: Necrotizing fasciitis (CMS/HCC) Stick Puller reviewed chart and spoke with patient to complete this Initial Case Management Assessment. PCP: Yenny Dhillon APRN Emergency Contact: Extended Emergency Contact Information Primary Emergency Contact: Yecenia Lake Mobile Relation: Sister Preferred language: New Zealander Aircraft Maintenance Director needed? No Secondary Emergency Contact: Arnoldo Raymond Address: [address] [place] [address] Mobile Relation: Significant Other Preferred language: [place] Zealander Aircraft Maintenance Director needed? No Insurance: Primary Visit Coverage Payer Plan Sponsor Code Group Number Group Name [facility] MEDICA[facility] Primary Visit Coverage Subscriber Subscriber ID Subscriber Name Subscriber N Subscriber Address [id number] CRISTINA BROWN [id number] [place] [address] Patient information: Primary Caregiver: Self Accompanied by/Relationship: Arnoldo Raymond- significant other Support System: Immediate family, Extended family, Friends Daily Living Activities: Functional Status: Minimum assistance Living Arrangements: Family, Friends Type of Residence: Private residence [address] [place] [address] Smoker in the Home?: Yes Current DME: Equipment Currently Used at Home: none Income Information: Income Source: Unemployed Income/Expense Information: Expenses exceed income Current Resources Utilized: Food [place] Housing Circumstances-Z Codes: Housing Circumstances (select all [...] Dialysis Services: N/A Living Will/Advance Directive/Power of A Auxiliary /Guardian: N/A Additional Comments: Pt gets her [...] HLD, celiac disease who initially came to [facility] on 07/08/2025 as transfer with concern [...] Anxiety, Asthma, Carpal tunnel syndrome, Depression, Diabetes ([facility]), H/O absence seizures, Hidradenitis, High cholesterol, Hypertension, [...] after discharge close to her home at [place]. She agrees to call and make appointment [...] Endocrinology referral - patient requested to see vice president network development in [place], [place]. Provided patient with address and number of clinic. [[facility] Endocrinology Clinic in the [facility] Physician Building]. Patient has been on insulin while hospitalized, but utilizing metformin at home with good compliance. Diabetes care complicated by celiac diagnosis - placed nutrition consult to help patient navigate gluten free and diabetes diet. * Assessment & Plan Note - Jason Andre MD - 07/15/2025 7:15 AM EDT Associated Problem(s): Necrotizing fasciitis ([facility]) - 07/09: debridement of necrotizing fasciitis in [...] Morbid (severe) obesity due to excess calories ([facility]) Complicates all aspect of care * Assessment [...] 7:15 AM EDT Associated Problem(s): Postoperative pain [facility] * Progress Notes - Jason Andre MD [...] night Postoperative pain Present on Admission: Unknown [facility] Non-Hospital Problems Carpal tunnel syndrome Dehydration Hidradenitis [...] Ongoing, Progressing Intervention: Promote Activity and Functional Fannin Flowsheets Taken 07/14/20252310 by Rita Alejandro, RN [...] Ongoing, Progressing Intervention: Promote Activity and Functional Fannin Flowsheets (Taken 07/14/2025 1800) Activity Assistance Provided: [...] PM EDT Operative Note Date: 07/14/25 Location: [facility] OR Name: Cristina Brown, : 1975, Diagnoses: Pre-op Diagnosis Necrotizing fasciitis (CMS/HCC) Post-op Diagnosis Necrotizing fasciitis (CMS/HCC) Procedure(s): Wound irrigation Partial wound closure, total closed 30 cm length Attending Surgeon(s): * Anne Franco - Primary Certified Travel Counselor(s): * Janell Cross MD - Resident - [...] (mL) 30 mL 07/14/25 1625 [REMOVED] NG/OG [place] [facility] mouth (Removed) Placement Verification [...] (mL) 49 mL 07/10/25 0000 [REMOVED] NG/OG [place] [facility] 14 Fr Left nostril (Removed) Placement [...] portions of the procedure(s) and immediately available [facility] services the entire duration. See resident [...] night Postoperative pain Present on Admission: Unknown [facility] Non-Hospital Problems Carpal tunnel syndrome Dehydration Hidradenitis [...] Edited by: Jason Andre MD at 07/14/2025 7396 Jason Andre MD Cosigned by Anne Franco [...] Ongoing, Progressing Intervention: Promote Activity and Functional Fannin Flowsheets (Taken 07/13/20251826) Activity Assistance Provided: assistance, [...] Note Cristina Brown 50 y.o. female CSN: [id number] Admission: 07/08/2025 5:58 PM Primary Problem: Necrotizing fasciitis (CMS/HCC) Stick Puller reviewed chart and spoke with Cristina to complete this Initial Case Management Assessment. PCP: Yenny Dhillon APRN Emergency Contact: Extended Emergency Contact Information Primary Emergency Contact: Yecenia Lake Mobile Relation: Sister Preferred language: [place] Zealander Aircraft Maintenance Director needed? No Secondary Emergency Contact: Arnoldo Raymond Address: [address] [place] [address] of [facility] Mobile Relation: Significant Other Preferred language: [place]alander Aircraft Maintenance Director needed? No Insurance: Primary Visit Coverage Payer Plan Sponsor Code Group Number Group Name [facility] MEDICAID [facility] MEDICA[facility] Primary Visit Coverage Subscriber Subscriber ID Subscriber Name Subscriber SSN Subscriber Address [id number] CRISTINA BROWN [id number] [place] [address] Patient information: Primary Caregiver: Self Accompanied by/Relationship: Arnoldo Raymond- significant other Support System: Immediate family Daily Living Activities: Functional Status: Independent Living Arrangements: Spouse/Significant other Type of Residence: Private residence [address] [place] [address] Current DME: Equipment Currently Used at Home: none Income Information: Housing Circumstances-Z Codes: Patient Referred to: Anticipated Discharge Date: unknown Patient's Discharge Goal: Referrals sent for Acute Rehab Assistance Available at Discharge: Arnoldo Raymond Discharge Transport: Arnoldo Raymond Follow Up Transport: Arnoldo raymond Home Health / Home Infusion / Outpatient Dialysis Services: none Living Will/Advance Directive/Power of A Auxiliary /Guardian: Additional Comments: CM discussed acute rehab placement with Cristina and Arnoldo Raymond. Their first choice is [facility] in [place], [place]. CM sent referrals in [facility]. Cristina will continue inpatient management for [...] Morbid (severe) obesity due to excess calories ([facility]) Complicates all aspect of care * Assessment [...] 07/09/2025 Septic shock (CMS/HCC) 07/09/2025 Absence seizure ([facility]) 07/09/2025 DM (diabetes mellitus) ([facility] 07/08/2025 Hidradenitis 07/08/2025 HTN (hypertension), benign 08/31/2023 Urge incontinence 08/31/2023 Smoker 06/09/2023 Depression 06/09/2023 Morbid (severe) obesity due to excess calories ([facility]) 02/15/2022 Chronic obstructive pulmonary disease, unspecified ([facility]) 01/09/2022 Necrotizing fasciitis ([facility]) 07/08/2025 Procedures 07/11/2025 Procedure(s): APPLICATION OR REPLACEMENT, WOUND VAC Past Medical History Patient has a past medical history of Anxiety, Asthma, Carpal tunnel syndrome, Depression, Diabetes([facility]), H/O absence seizures, Hidradenitis, High cholesterol, Hypertension, [...] evaluation. Participants in Care Family/Caregiver Present: No Aircraft Maintenance Director: Not Applicable Presentation Oxygen Therapy: Supplemental oxygen [...] admission Level of Mobility: Ambulatory- community Mobility Fannin: Independent gait without device History of Falls: [...] Mobility Bed Mobility Exam: Scooting/Bridging Level of Fannin: Contact guard (seated scoot once sitting up on EOB and able to wiggle back into recliner chair) Bed Mobility Exam: Supine to Sit Level of Fannin: Moderate assist (50% patient's effort) Physical/Nonphysical Assist: Verbal Cues, Moderate cues, Additional assist utilized for safety, HOBelevated Assistive Device: Other (HAND TIER x2) Transfers Transfer Interventions: Patient performed sit < > stand x 3 reps total: Mod A from EOB, Min Afrom recliner chair, and CGA from BSC. Transfer Exam: Sit to stand Level of Fannin: Minimum assist (75% patient's effort) Physical/Nonphysical Assist: Verbal Cues, Minimal cues Assistive Device: Walker, rolling (anrdea) Transfer Exam: Stand to Sit Level of Fannin: Minimum assist (75% patient's effort) Physical/Nonphysical Assist: Verbal Cues, Minimal cues Assistive Device: Walker, rolling (andrea) Transfer Exam: Bed to Chair/Chair to Bed Level of Fannin: Minimum assist (75% patient's effort) Physical/Nonphysical Assist: Verbal Cues, Minimal cues, Additional assist utilized for safety Type of Transfer: Sidesteps (bed > chair < > BSC) Assistive Device: Walker, rolling (andrea) Toilet Transfer Level of Fannin: Minimum assist (75% patient's effort) Physical/Nonphysical Assist: Nonverbal cues (demo/gestures), Verbal Cues, Set-up required, Minimal cues Type of Transfer: Sidesteps, To bedside commode (ordered bariatric BSC from [facility] as patient had difficulty getting on/off BSC [...] to allow bedside care to take placed (GEOGRAPHIC INFORMATION SYSTEMS ANALYST entering to take vitals; RN enforcing bandages [...] for further toileting ADL needs. Standardized Assessments [facility] 6-Click Daily Activities Help from Other: Don/Doff Regular Lower Body Clothings: A lot Help From Other: Bathing: A lot Help From Other: Toileting: A lot Help From Other: Don/Doff Upper Body Clothings: Little Help From Other: Grooming: None Help From Other: Eating Meals: None [facility] 6 Click - Daily Activities Score: 17 [...] 07/10/2025 Acute respiratory failure 07/09/2025 Septic shock ([facility]) 07/09/2025 Absence seizure ([facility]) 07/09/2025 DM (diabetes mellitus) ([facility]) 07/08/2025 Hidradenitis 07/08/2025 HTN (hypertension), benign 08/31/2023 Urge incontinence 08/31/2023 Smoker 06/09/2023 Depression 06/09/2023 Morbid (severe) obesity due to excess calories ([facility]) 02/15/2022 Chronic obstructive pulmonary disease, unspecified ([facility]) 01/09/2022 Necrotizing fasciitis ([facility]) 07/08/2025 Procedures 07/11/2025 Procedure(s): APPLICATION OR REPLACEMENT, WOUND VAC Past Medical History Patient has a past medical history of Anxiety, Asthma, Carpal tunnel syndrome, Depression, Diabetes([facility]), H/O absence seizures, Hidradenitis, High cholesterol, Hypertension, [...] move. Participants in Care Family/Caregiver Present: No Aircraft Maintenance Director: Not Applicable Presentation Oxygen Therapy: Supplemental oxygen [...] admission Level of Mobility: Ambulatory- community Mobility Fannin: Independent gait without device History of Falls: [...] Mobility Bed Mobility Exam: Scooting/Bridging Level of Fannin: Contact guard (seated scoot once sitting up on EOB and able to wiggle back into recliner chair) Bed Mobility Exam: Supine to Sit Level of Fannin: Moderate assist (50% patient's effort) Physical/Nonphysical Assist: Verbal Cues, Moderate cues, Additional assist utilized for safety, HOBelevated Assistive Device: Other (HAND TIER x 2) Transfers Transfer Interventions: Patient performed sit < > stand x 3 reps total: Mod A from EOB, Min Afrom recliner chair, and CGA from BSC. Cues for safe hand placement during transitions using RW. Transfer Exam: Sit to stand Level of Fannin: Minimum assist (75% patient's effort) Physical/Nonphysical Assist: Verbal Cues, Minimal cues Assistive Device: Walker, rolling (andrea) Transfer Exam: Stand to Sit Level of Fannin: Minimum assist (75% patient's effort) Physical/Nonphysical Assist: Verbal Cues, Minimal cues Assistive Device: Walker, rolling (andrea) Transfer Exam: Bed to Chair/Chair to Bed Level of Fannin: Minimum assist (75% patient's effort) Physical/Nonphysical Assist: Verbal Cues, Minimal cues, Additional assist utilized for safety Type of Transfer: Sidesteps (bed > chair < > BSC) Assistive Device: Walker, rolling (andrea) Toilet Transfer Level of Fannin: Minimum assist (75% patient's effort) Physical/Nonphysical Assist: Set-up required, Verbal Cues Type of Transfer: Sidesteps, To bedside commode ([facility] as patient had difficulty getting on/off BSC [...] climbing 3-5 steps with a railing?: Unable [facility] 6-Clicks Mobility Assessment Total : 15 No [...] anxiety, asthma, HLD, celiac disease, presenting to [facility] on 07/08/2025 as transfer with concern [...] stay, and so will be discharged to [facility] * Assessment & Plan Note - Jatin [...] night Postoperative pain Present on Admission: Unknown [facility] Non-Hospital Problems Carpal tunnel syndrome Dehydration Hidradenitis [...] ICU Daily Progress Note 07/12/25 Cristina Brown [facility] 50-year-old female with past medical history of [...] Airway None O2 Delivery Method: Nasal cannula CA SUP: 10 cm H20 Insp Time (sec): 1 sec FiO2 (%): 40 % S RR: 20 CA SUP: 10 cm H20 Output by Drain [...] saw and evaluated the patient with the medical/ASSIGNMENT DESK EDITOR/PA student. I discussed the case with the medical/ASSIGNMENT DESK EDITOR/PA student and agree with the findings and [...] PM EDT Operative Note Date: 07/11/25 Location: [facility] OR Name: Cristina Brown, : 1975, Diagnoses: Pre-op Diagnosis Necrotizing fasciitis (CMS/HCC) Post-op Diagnosis Necrotizing fasciitis (CMS/HCC) Procedure(s): Right groin/perineum/thigh/abdominal wound exploration and washout Attending Surgeon(s): * Dorcas Hennessy - Primary Certified Travel Counselor(s): * Janell Cross MD - Resident - [...] who is having surgery for Necrotizing fasciitis ([facility]). Patient had 2 prior debridements of her [...] Note Cristina Brown 50 y.o. female CSN: [id number] Room/Bed 133/133A Nutrition evaluation type: follow-up Reason for evaluation: Hospital course: 50 y o F transferred from [facility] with concern for necrotizing fasciitis; OR 07/08 for excisional debridement of RLE, groin, pubis, and abdominal wall of skin, subcutaneous tissue, and muscle fascia, [id number]. Septic shock secondary to NSTI. Intubated & [...] O2 Delivery Method: High flow nasal cannula [place] Coma Scale Score: 15 Satnam/Cubbin Pressure Risk [...] Estimated Needs: Kcal: 25-27 kcal/kg adj bw (8648-5261 kcal/d) Protein: 1.5-1.7 g/kg adj bw (143-162 [...] -will monitor NPO duration -po per MD/ THEATER PROJECTIONIST -when po diet appropriate, rec CC3, Gluten [...] Vent Status (ETT, Trach Only): In use CA SUP: 5 cm H20 Insp Time (sec): 1.5 sec Vent Mode: PS FiO2 (%): 60 % S RR: 14 CA SUP: 5 cm H20 MAP (cm H2O): [...] night for suspected sleep apnea Septic shock ([facility]/HCC) Yes Overview Addendum 07/10/2025 4:53 PM by [...] PM EDT Operative Note Date: 07/10/25 Location: [facility] OR Name: Cristina Brown, : 1975, Diagnoses: Pre-op Diagnosis Necrotizing fasciitis (CMS/HCC) Post-op Diagnosis Necrotizing fasciitis (CMS/HCC) Procedure(s): Right groin/perineum/thigh/abdominal wound exploration, debridement, and washout Attending Surgeon(s): * Dorcas Hennessy - Primary Certified Travel Counselor(s): * Shelby Whittington MD - Resident - [...] 07/08/252341 Estimated Blood Loss: Minimal Drains: NG/OG [place] [facility] 14 Fr Left nostril (Active) Placement [...] Findings: All viable tissue. Wound measuring approximately 16w05q2yj. Packed with 5 kerlix tied together. Indications: [...] Edited by: Lidia Ellis MD at 07/10/2025 0142 Relevant review of systems was obtained as [...] Vent Status (ETT, Trach Only): In use CA SUP: 5 cm H20 Insp Time (sec): 1.5 sec Vent Mode: PS FiO2 (%): 50 % S RR: 14 CA SUP: 5 cm H20 MAP (cm H2O): [...] Hospital Problems POA * (Principal) Necrotizing fasciitis ([facility]/HCC) Yes Overview Addendum 07/10/2025 4:51 PM by Lidia Ellis MD - Presented to with right medial thigh NSTI. - S/p irrigation and debridement on 07/08. - On cefepime, linezolid, and flagyl (07/08-TBD) - Irrigation and debridement of RLE on 07/10. Chronic obstructive pulmonary disease, unspecified ([facility]/HCC) Yes Overview Addendum 07/09/2025 4:10 PM by [...] Morbid (severe) obesity due to excess calories ([facility]) Yes Overview Addendum 07/09/2025 4:07 PM by Lidia Ellis MD Complicates care. Smoker Yes Overview Signed 07/09/2025 3:05 PM by Lidia Ellis MD - Patient smokes 0.5-1ppd. - Smoking cessation when appropriate. Urge incontinence Yes DM (diabetes mellitus) ([facility]/HCC) Yes Overview Addendum 07/09/2025 4:11 PM by Lidia Ellis MD - Patient hyperglycemic, up to 300s. - Insulin drip per protocol. Hidradenitis Yes Absence seizure ([facility]/HCC) (Chronic) Yes Overview Addendum 07/10/2025 4:52 PM [...] Protection: absorbent pad utilized/changed positioning supports utilized [id number]-[id number] areas padded [id number] areas padded Problem: Skin Injury Risk Increased [...] Note Cristina Brown 50 y.o. female CSN: [id number] Room/Bed 133/133A Nutrition evaluation type: assessment Reason for evaluation: provider consult Hospital course: 50 y o F transferred from OSH with concern for necrotizing fasciitis; OR 9/1 for excisional debridement of RLE, groin, pubis, and abdominal wall of skin, subcutaneous tissue, and muscle fascia, [id number]. Septic shock secondary to NSTI. Intubated & sedated. TF initiated 07/09. Past medical/ surgical history: Past Medical History[1], celiac disease Surgical History[2] Social history: Social History[3] Additional comments: 07/09: Pt intubated and sedated. Visitor sleeping. Vitals and Basic Assessment: BP: 89/50 Temp: 36.3 ??C (97.3 ??F) Invasive Ventilator Initiated (ETT/Trach Only): Yes Oxygen Therapy: Supplemental oxygen O2 Delivery Method: Endotracheal tube, Mechanical ventilator [place] Coma Scale Score: 10 Satnam/Cubbin Pressure Risk [...] oz) Estimated Needs: Kcal: 22-25 kcal/kg IBW (4078-6634 kcal/d) Protein: 2-2.5 g/kg IBW (136-171 g/d) [...] enteral volume daily Acuity Level: 5 Mera Knowels, RD, LD [1] Past Medical History: Diagnosis [...] decreased. Palpations: Abdomen is soft. Skin: Comments: 42w97cm open wound with no extension of cellulitis. [...] PEEP (cmH2O): 18 S VT: 450 mL CA SUP: 10 cm H20 Insp Time (sec): 0.8 sec Vent Mode: PS FiO2 (%): 50 % S RR: 22 S VT: 450 mL CA SUP: 10 cm H20 MAP (cm H2O): [...] respiratory support. Wean as tolerated. Septic shock ([facility]) Yes Overview Signed 07/09/2025 3:58 PM by Lidia Ellis MD - Septic shock secondary to necrotizing fascitis. - Requiring Levophed for circulatory support. Wean as tolerated. Chronic obstructive pulmonary disease, unspecified ([facility]) Yes Overview Addendum 07/09/2025 4:10 PM by [...] Morbid (severe) obesity due to excess calories ([facility]) Yes Overview Addendum 07/09/2025 4:07 PM by Lidia Ellis MD Complicates care. Smoker Yes Overview Signed 07/09/2025 3:05 PM by Lidia Ellis MD - Patient smokes 0.5-1ppd. - Smoking cessation when appropriate. Urge incontinence Yes DM (diabetes mellitus) ([facility]) Yes Overview Addendum 07/09/2025 4:11 PM by Lidia Ellis MD - Patient hyperglycemic, up to 300s. - Insulin drip per protocol. Hidradenitis Yes Absence seizure ([facility]) (Chronic) Yes Overview Addendum 07/09/2025 4:08 PM [...] PM EDT Operative Note Date: 07/08/25 Location: [facility] OR Name: Cristina Brown, : 1975, Diagnoses: Pre-op Diagnosis Necrotizing fasciitis (CMS/HCC) Post-op Diagnosis Necrotizing fasciitis (CMS/HCC) Procedure(s): Excisional debridement of right thigh, groin pubis and abdominal wall including skin, subcutaneous tissue and fascia measuring 65 x 20 x 2cm Attending Surgeon(s): * Luanne Crawford - Primary Certified Travel Counselor(s): * Kristy Fields MD - Resident - [...] 07/08/2025 9:01 PM EDT Date: 07/09/25 Location: [facility] OR Name: Cristina Brown, : 1975, Diagnoses: Pre-op Diagnosis Necrotizing fasciitis (CMS/HCC) Post-op Diagnosis Necrotizing fasciitis (CMS/HCC) Procedure(s): Excisional debridement of right lower extremity, groin, pubis, and abdominal wall of skin, subcutaneous tissue, and muscle fascia, 65x20 cm Attending Surgeon(s): * Luanne Crawford - Primary Certified Travel Counselor(s): * Kristy Fields MD - Resident - [...] anxiety, asthma, HLD, celiac disease, presenting to [facility] on 07/08/2025 as transfer with concern for [...] Anxiety, Asthma, Carpal tunnel syndrome, Depression, Diabetes ([facility]), H/O absence seizures, Hidradenitis, High cholesterol, Hypertension, [...] mL IVPB (vial adapter required) 2 g [id number] Deepthi Garcia MD linezolid (Zyvox) injection 600 [...] 07/08/252113 * ED Provider Notes - Deepthi Garcai MD - 07/08/2025 5:58 PM EDT Images from the original note were not included. - HPI Chief Complaint Patient presents with Wound Check Cristina Brown is a 50 yo F with a PMH of DM, hidradenitis supparativa, current smoker (1.5 ppd), asthma, HLD, celiac disease, presenting to [facility] on 07/08/2025 as transfer with concern [...] 4% (Hibiclens). Acknowledged AMINA RAMIREZ 07/08/251916 Void overnight houseperson to OR Once Acknowledged AMINA RAMIREZ 07/08/251916 [...] 07/09/25 013 Necrotizing fasciitis due to microorganism ([facility]) Social Determinates of Health Risks (including Economic [...] None Disposition Admit Admitting/Attending Physician: LUANNE CRAWFORD [[id number]] Provider Care Team: [facility] 1 [159] Are [...] Team (Late st Contact Info) Description 08/20/2025 9:00 AM EDT Office Visit Medical Office Building Urology [address], [address] [place] [address] Deepthi Matamoros E, ASSISTANT BUYER [address] [place] [address] 08/20/2025 10:30 AM EDT Office Visit [facility] General Surgery [address] [place] [address] Lilliana Morfin E, ASSISTANT BUYER [address] [place] [address] Scheduled Referrals Name Type Priority Associated Diagnoses [...] UNSOLICITED RESULTS Routine 07/11/2025 9:57 AM EDT [facility], E/M 30-74 MINUTES Routine 07/11/2025 8:41 AM EDT Necrotizing fasciitis ([facility]/HCC) Morbid (severe) obesity due to excess calories ([facility]/HCC) Septic shock ([facility]) Type 2 diabetes mellitus with hyperglycemia, without long-term current use of insulin ([facility]) Respiratory insufficiency POCT GLUCOSE METER UNSOLICITED RESULTS [...] ECG ADULT STAT 07/10/2025 8:42 AM EDT [facility], E/M 30-74 MINUTES Routine 07/10/2025 8:15 AM EDT Necrotizing fasciitis (CMS/HCC) Morbid (severe) obesity due to excess calories ([facility]) Septic shock ([facility]) Acute respiratory failure with hypoxia POCT GLUCOSE [...] CO2 MONITORING Routine 07/09/2025 8:00 AM EDT [facility] CRITICAL CARE, E/M 30-74 MINUTES Routine 07/09/2025 [...] UNSOLICITED RESULTS Routine 07/08/2025 8:51 PM EDT CA DEBRIDEMENT, SKIN, SUB-Q TISSUE,=<20 SQ CM 07/08/2025 [...] PANEL, PLASMA STAT 07/08/2025 6:14 PM EDT [facility] CRITICAL CARE, E/M 30-74 MINUTES Routine 07/08/2025 [...] for testing. Comment 07/19/2025 5:32 PM EDT [facility] Counseling Aide ID Laura Baez 025 5:32 PM EDT HEALTHCARE LAB Device ID [id number] 07/19/2025 5:32 PM EDT [facility] Specimen Type POC Capillary 07/19/2025 5:32 PM EDT [facility] Blood Capillary blood specimen / Unknown 07/19/2025 12:27 PM EDT 07/19/2025 5:32 PM EDT us Anne Franco MD LAB POINT OF CARE TEST DOCKED DEVICE UNSOLICITED RESULTS Final Result [facility] [address] [place] [address] * Phosphorus (07/19/2025 4:28 AM EDT) Pathologist [facility] Phosphorus, Plasma 3.6 2.5 - 4.5 mg/dL 07/19/2025 5:03 AM EDT [facility] Blood Venous blood specimen / Unknown Venipuncture / Unknown 07/19/2025 4:28 AM EDT 07/19/2025 4:35 AM EDT us Anne Franco MD LAB BLOOD ORDERABLES Sarah l Result [facility] [address] [place] [address] * (ABNORMAL) Magnesium (07/19/2025 4:28 AM EDT) Pathologist [facility] Magnesium, Plasma 1.8(L) 1.9 - 2.4 mg/dL 07/19/2025 5:03 AM EDT [facility] Blood Venous blood specimen / Unknown Venipuncture / Unknown 07/19/2025 4:28 AM EDT 07/19/2025 4:35 AM EDT us Anne Franco MD LAB BLOOD ORDERABLES Sarah l Result [facility] [address] [place] [address] * (ABNORMAL) CBC W/O Differential (07/19/2025 4:28 AM EDT) WBC Count 18.39(H) 3.70 - 10.30 10*3/uL LAB HEMATOLOGY METHOD 07/19/2025 4:51 AM EDT [facility] RBC Count 3.50(L) 3.90 - 5.20 10*6/uL LAB HEMATOLOGY METHOD 07/19/2025 4:51 AM EDT [facility] HGB 9.6(L) 11.2 - 15.7 g/dL LAB HEMATOLOGY METHOD 07/19/2025 4:51 AM EDT [facility] HCT 30.7(L) 34.0 - 45.0 % LAB HEMATOLOGY METHOD 07/19/2025 4:51 AM EDT [facility] Platelet Count 627(H) 155 - 369 10*3/uL LAB HEMATOLOGY METHOD 07/19/2025 4:51 AM EDT [facility] MCV 88 79 - 98 fL LAB HEMATOLOGY METHOD 07/19/2025 4:51 AM EDT [facility] MCH 27.4 26.0 - 32.0 pg LAB HEMATOLOGY METHOD 07/19/2025 4:51 AM EDT [facility] MCHC 31.3 30.7 - 35.5 g/dL LAB HEMATOLOGY METHOD 07/19/2025 4:51 AM EDT [facility] RDW 18.2(H) 11.5 - 14.5 % LAB HEMATOLOGY METHOD 07/19/2025 4:51 AM EDT [facility] MPV 10.2 8.8 - 12.5 fL LAB HEMATOLOGY METHOD 07/19/2025 4:51 AM EDT [facility] nRBC 0.1(H) <=0.0 per 100 WBCs LAB HEMATOLOGY METHOD 07/19/2025 4:51 AM EDT [facility] Blood Venous blood specimen / Unknown Venipuncture / Unknown 07/19/2025 4:28 AM EDT 07/19/2025 4:36 AM EDT us Anne Fracno MD LAB BLOOD ORDERABLES Sarah bennett Result [facility] [address] [place] [address] * (ABNORMAL) Basic metabolic panel (07/19/2025 4:28 AM EDT) Glucose, Plasma 153(H) 74 - 99 mg/dL 07/19/2025 5:03 AM EDT [facility] BUN, Plasma 14 7 - 21 mg/dL 07/19/2025 5:03 AM EDT [facility] Creatinine, Plasma 0.73 0.60 - 1.10 mg/dL 07/19/2025 5:03 AM EDT [facility] BUN/Creatinine Ratio 19 07/19/2025 5:03 AM EDT [facility] Sodium, Plasma 137 136 - 145 mmol/L 07/19/2025 5:03 AM EDT [facility] Potassium, Plasma 4.3 3.6 - 4.9 mmol/L 07/19/2025 5:03 AM EDT [facility] Chloride, Plasma 97 97 - 107 mmol/L 07/19/2025 5:03 AM EDT [facility] CO2, Plasma 28 22 - 29 mmol/L 07/19/2025 5:03 AM EDT [facility] Anion Gap 12 6 - 16 mmol/L 07/19/2025 5:03 AM EDT [facility] Total Calcium, Plasma 9.0 8.9 - 10.2 mg/dL 07/19/2025 5:03 AM EDT [facility] eGFRcr 101.0 mL/min/1.7 3m*2 07/19/2025 5:03 AM EDT [facility] Comment:Reported eGFRcr in m L/min/1.73m2 is based the CKD-EPI 2020 equation that does not use a race coefficient. Blood Venous blood specimen / Unknown Venipuncture / Unknown 07/19/2025 4:28 AM EDT 07/19/2025 4:35 AM EDT us Anne Franco MD LAB BLOOD ORDERABLES Sarah l Result Performing Organization Address City/[facility] Co de Phone Number [facility] [address] [place] [address] * (ABNORMAL) POCT glucose meter (07/18/2025 8:33 [...] Comment 07/18/2025 8:36 PM EDT [facility] LAB Counseling Aide ID Zach Martinez 8:36 PM EDT [facility]ALTH[facility]ARE LAB Device ID [id number] 07/18/2025 8:36 PM EDT [facility]ARE LAB Specimen Type POC Capillary 07/18/2025 8:36 PM EDT [facility] Blood Capillary blood specimen / Unknown 07/18/2025 8:33 PM EDT 07/18/2025 8:36 PM EDT us Anne Franco MD LAB POINT OF CARE TEST DOCKED DEVICE UNSOLICITED RESULTS Final Result Performing Organization Address City/[facility] Co de Phone Number [facility]ALTH[facility]ARE LAB [address] [place] [address] * (ABNORMAL) POCT glucose meter (07/18/2025 6:07 PM EDT) [facility] POCT Glucose 222(H) 74 - 99 mg/dL [...] Comment 07/18/2025 6:08 PM EDT [facility]ALTH[facility]ARE LAB Counseling Aide ID Monique Jacques 6:08 PM EDT [facility]ARE LAB Device ID [id number] 07/18/2025 6:08 PM EDT [facility] LAB Specimen Type POC Capillary 07/18/2025 6:08 PM EDT [facility] Blood Capillary blood specimen / Unknown 07/18/2025 6:07 PM EDT 07/18/2025 6:08 PM EDT Anne Franco MD LAB POINT OF CARE TEST DOCKED DEVICE UNSOLICITED RESULTS Final Result [facility] [address] [place] [address] * (ABNORMAL) POCT glucose meter (07/18/2025 12:36 PM EDT) [facility] POCT Glucose 151(H) 74 - 99 mg/dL [...] 07/18/2025 12:38 PM EDT [facility] Counseling Aide ID Laura Baez 025 12:38 PM EDT [facility] Device ID [id number] 07/18/2025 12:38 PM EDT [facility] Specimen Type POC Capillary 07/18/2025 12:38 PM EDT [facility] Blood Capillary blood specimen / Unknown 07/18/2025 12:36 PM EDT 07/18/2025 12:38 PM EDT Anne Franco MD LAB POINT OF CARE TEST DOCKED DEVICE UNSOLICITED RESULTS Final Result Performing Organization Address City/[facility]/ZIP Co de Phone Number [facility] [address] [place] [address] * (ABNORMAL) POCT glucose meter (07/18/2025 8:39 [...] Comment 07/18/2025 8:41 AM EDT [facility] Counseling Aide ID Laura Baez 025 8:41 AM EDT HEALTHCARE LAB Device ID [id number] 07/18/2025 8:41 AM EDT [facility]ALTH[facility]ARE LAB Specimen Type POC Capillary 07/18/2025 8:41 AM EDT [facility] Blood Capillary blood specimen / Unknown 07/18/2025 8:39 AM EDT 07/18/2025 8:41 AM EDT Anne Franco MD LAB POINT OF CARE TEST DOCKED DEVICE UNSOLICITED RESULTS Final Result [facility] [address] [place] [address] * (ABNORMAL) Basic metabolic panel (07/18/2025 6:03 AM EDT) Glucose, Plasma 163(H) 74 - 99 mg/dL 07/18/2025 6:45 AM EDT [facility] BUN, Plasma 11 7 - 21 mg/dL 07/18/2025 6:45 AM EDT [facility] Creatinine, Plasma 0.65 0.60 - 1.10 mg/dL 07/18/2025 6:45 AM EDT [facility] BUN/Creatinine Ratio 17 07/18/2025 6:45 AM EDT [facility] Sodium, Plasma 138 136 - 145 mmol/L 07/18/2025 6:45 AM EDT [facility] Potassium, Plasma 3.8 3.6 - 4.9 mmol/L 07/18/2025 6:45 AM EDT [facility] Chloride, Plasma 99 97 - 107 mmol/L 07/18/2025 6:45 AM EDT [facility] CO2, Plasma 29 22 - 29 mmol/L 07/18/2025 6:45 AM EDT [facility] Anion Gap 10 6 - 16 mmol/L 07/18/2025 6:45 AM EDT [facility] Total Calcium, Plasma 8.5(L) 8.9 - 10.2 mg/dL 07/18/2025 6:45 AM EDT [facility] eGFRcr 108.1 mL/min/1.7 3m*2 07/18/2025 6:45 AM EDT [facility] Comment:Reported eGFRcr in m L/min/1.73m2 is based the CKD-EPI 2020 equation that does not use a race coefficient. Blood Venous blood specimen / Unknown Venipuncture / Unknown 07/18/2025 6:03 AM EDT 07/18/2025 6:12 AM EDT us Anne Franco MD LAB BLOOD ORDERABLES Sarah l Result [facility] [address] [place] [address] * (ABNORMAL) CBC W/O Differential (07/18/2025 6:03 AM EDT) WBC Count 16.76(H) 3.70 - 10.30 10*3/uL LAB HEMATOLOGY METHOD 07/18/2025 6:25 AM EDT [facility] RBC Count 3.25(L) 3.90 - 5.20 10*6/uL LAB HEMATOLOGY METHOD 07/18/2025 6:25 AM EDT [facility] HGB 9.1(L) 11.2 - 15.7 g/dL LAB HEMATOLOGY METHOD 07/18/2025 6:25 AM EDT [facility] HCT 28.8(L) 34.0 - 45.0 % LAB HEMATOLOGY METHOD 07/18/2025 6:25 AM EDT [facility] Platelet Count 523(H) 155 - 369 10*3/uL LAB HEMATOLOGY METHOD 07/18/2025 6:25 AM EDT [facility] MCV 89 79 - 98 fL LAB HEMATOLOGY METHOD 07/18/2025 6:25 AM EDT [facility] MCH 28.0 26.0 - 32.0 pg LAB HEMATOLOGY METHOD 07/18/2025 6:25 AM EDT [facility] MCHC 31.6 30.7 - 35.5 g/dL LAB HEMATOLOGY METHOD 07/18/2025 6:25 AM EDT [facility] RDW 17.6(H) 11.5 - 14.5 % LAB HEMATOLOGY METHOD 07/18/2025 6:25 AM EDT [facility] MPV 10.3 8.8 - 12.5 fL LAB HEMATOLOGY METHOD 07/18/2025 6:25 AM EDT [facility] nRBC 0.0 <=0.0 per 100 WBCs LAB HEMATOLOGY METHOD 07/18/2025 6:25 AM EDT [facility] Blood Venous blood specimen / Unknown Venipuncture / Unknown 07/18/2025 6:03 AM EDT 07/18/2025 6:12 AM EDT us Anne Franco MD LAB BLOOD ORDERABLES Sarah bennett Result [facility] [address] [place] [address] * (ABNORMAL) POCT glucose meter (07/17/2025 10:33 PM EDT) POCT Glucose 171(H) 74 - 99 mg/dL [...] Comment 07/17/2025 10:35 PM EDT [facility] Counseling Aide ID Tha, 07/17/2025 10:35 PM EDT [facility] LAB Device ID [id number] 07/17/2025 10:35 PM EDT [facility] LAB Specimen Type POC Capillary 07/17/2025 10:35 PM EDT [facility] Blood Capillary blood specimen / Unknown 07/17/2025 10:33 PM EDT 07/17/2025 10:35 PM EDT Anne Franco MD LAB POINT OF CARE TEST DOCKED DEVICE UNSOLICITED RESULTS Final Result Performing Organization Address City/State/[facility] Co de Phone Number [facility] [address] [place] [address] * PERIPHERAL IV ([employer]) (07/17/2025 5:14 [...] for testing. Comment 07/17/2025 5:12 PM EDT [facility] Counseling Aide ID Monique Jcaques 5:12 PM EDT [facility] Device ID [id number] 07/17/2025 5:12 PM EDT [facility] Specimen Type POC Capillary 07/17/2025 5:12 PM EDT [facility] Blood Capillary blood specimen / Unknown 07/17/2025 5:10 PM EDT 07/17/2025 5:12 PM EDT Anne Franco MD LAB POINT OF CARE TEST DOCKED DEVICE UNSOLICITED RESULTS Final Result [facility] [address] [place] [address] * (ABNORMAL) POCT glucose meter (07/17/2025 12:06 PM EDT) [facility] POCT Glucose 211(H) 74 - 99 mg/dL [...] for testing. Comment 07/17/2025 12:07 PM EDT [facility] Counseling Aide ID Josi Ann 12:07 PM EDT [facility] Device ID [id number] 07/17/2025 12:07 PM EDT [facility] Specimen Type POC Capillary 07/17/2025 12:07 PM EDT [facility] Blood Capillary blood specimen / Unknown 07/17/2025 12:06 PM EDT 07/17/2025 12:07 PM EDT us Anne Franco MD LAB POINT OF CARE TEST DOCKED DEVICE UNSOLICITED RESULTS Final Result [facility] [address] [place] [address] * [place] Extremity Limited MSK or Soft [...] Detected Not Detected 07/17/2025 12:11 PM EDT [facility] Swab Both anterior nares / Unknown Non-blood Collection / Unknown 07/17/2025 10:14 AM EDT 07/17/2025 10:33 AM EDT Narrative [facility] - 07/17/2025 12:11 PM EDT [...] MICROBIOLOGY - GENERAL ORDER LUANNE Final Result [facility] [address] [place] [address] * (ABNORMAL) POCT glucose meter (07/17/2025 9:35 AM EDT) [facility] POCT Glucose 139(H) 74 - 99 mg/dL [...] Comment 07/17/2025 9:37 AM EDT [facility] Counseling Aide ID Josi Ann 9:37 AM EDT [facility] Device ID [id number] 07/17/2025 9:37 AM EDT [facility] LAB Specimen Type POC Capillary 07/17/2025 9:37 AM EDT [facility] Blood Capillary blood specimen / Unknown 07/17/2025 9:35 AM EDT 07/17/2025 9:37 AM EDT Anne Franco MD LAB POINT OF CARE TEST DOCKED DEVICE UNSOLICITED RESULTS Final Result [facility] [address] [place] [address] * (ABNORMAL) Basic metabolic panel (07/17/2025 5:20 AM EDT) Glucose, Plasma 140(H) 74 - 99 mg/dL 07/17/2025 5:56 AM EDT [facility] BUN, Plasma 8 7 - 21 mg/dL 07/17/2025 5:56 AM EDT [facility] Creatinine, Plasma 0.59(L) 0.60 - 1.10 mg/dL 07/17/2025 5:56 AM EDT [facility] BUN/Creatinine Ratio 14 07/17/2025 5:56 AM EDT [facility] Sodium, Plasma 139 136 - 145 mmol/L 07/17/2025 5:56 AM EDT [facility] Potassium, Plasma 3.8 3.6 - 4.9 mmol/L 07/17/2025 5:56 AM EDT [facility] Chloride, Plasma 97 97 - 107 mmol/L 07/17/2025 5:56 AM EDT [facility] CO2, Plasma 31(H) 22 - 29 mmol/L 07/17/2025 5:56 AM EDT [facility] Anion Gap 11 6 - 16 mmol/L 07/17/2025 5:56 AM EDT [facility] Total Calcium, Plasma 8.6(L) 8.9 - 10.2 mg/dL 07/17/2025 5:56 AM EDT [facility] eGFRcr 110.6 mL/min/1.7 3m*2 07/17/2025 5:56 AM EDT [facility] Comment:Reported eGFRcr in m L/min/1.73m2 is based the CKD-EPI 2020 equation that does not use a race coefficient. Blood Venous blood specimen / Unknown Venipuncture / Unknown 07/17/2025 5:20 AM EDT 07/17/2025 5:27 AM EDT us Anne Franco MD LAB BLOOD ORDERABLES Sarah l Result [facility] [address] [place] [address] * Phosphorus, Plasma (07/17/2025 5:20 AM EDT) Phosphorus, Plasma 3.0 2.5 - 4.5 mg/dL 07/17/2025 5:56 AM EDT [facility] Blood Venous blood specimen / Unknown Venipuncture / Unknown 07/17/2025 5:20 AM EDT 07/17/2025 5:27 AM EDT us Anne Franco MD LAB BLOOD ORDERABLES Sarah l Result Performing Organization Address City/[facility]/ZIP Co de Phone Number [facility] [address] [place] [address] * (ABNORMAL) Magnesium, Plasma (07/17/2025 5:20 AM EDT) Pathologist [facility] Magnesium, Plasma 1.8(L) 1.9 - 2.4 mg/dL 07/17/2025 5:56 AM EDT [facility] Blood Venous blood specimen / Unknown Venipuncture / Unknown 07/17/2025 5:20 AM EDT 07/17/2025 5:27 AM EDT us Anne Franco MD LAB BLOOD ORDERABLES Sarah l Result Performing Organization Address City/[facility]/ZIP Co de Phone Number [facility] [address] [place] [address] * (ABNORMAL) CBC W/O Differential (07/17/2025 5:20 AM EDT) WBC Count 22.29(H) 3.70 - 10.30 10*3/uL LAB HEMATOLOGY METHOD 07/17/2025 5:37 AM EDT [facility] RBC Count 3.36(L) 3.90 - 5.20 10*6/uL LAB HEMATOLOGY METHOD 07/17/2025 5:37 AM EDT [facility] HGB 9.2(L) 11.2 - 15.7 g/dL LAB HEMATOLOGY METHOD 07/17/2025 5:37 AM EDT [facility] HCT 29.4(L) 34.0 - 45.0 % LAB HEMATOLOGY METHOD 07/17/2025 5:37 AM EDT [facility] Platelet Count 484(H) 155 - 369 10*3/uL LAB HEMATOLOGY METHOD 07/17/2025 5:37 AM EDT [facility] MCV 88 79 - 98 fL LAB HEMATOLOGY METHOD 07/17/2025 5:37 AM EDT [facility] MCH 27.4 26.0 - 32.0 pg LAB HEMATOLOGY METHOD 07/17/2025 5:37 AM EDT [facility] MCHC 31.3 30.7 - 35.5 g/dL LAB HEMATOLOGY METHOD 07/17/2025 5:37 AM EDT [facility] RDW 17.3(H) 11.5 - 14.5 % LAB HEMATOLOGY METHOD 07/17/2025 5:37 AM EDT [facility] MPV 10.4 8.8 - 12.5 fL LAB HEMATOLOGY METHOD 07/17/2025 5:37 AM EDT [facility] nRBC 0.1(H) <=0.0 per 100 WBCs LAB HEMATOLOGY METHOD 07/17/2025 5:37 AM EDT [facility] Blood Venous blood specimen / Unknown Venipuncture / Unknown 07/17/2025 5:20 AM EDT 07/17/2025 5:27 AM EDT us Anne Franco MD LAB BLOOD ORDERABLES Sarah bennett Result [facility] [address] [place] [address] * (ABNORMAL) POCT glucose meter (07/16/2025 8:24 [...] Comment 07/16/2025 8:26 PM EDT [facility]ALTH[facility] Counseling Aide ID Lacie Marcelo 07/16/20 8:26 PM EDT [facility] Device ID [id number] 07/16/2025 8:26 PM EDT [facility] Specimen Type POC Capillary 07/16/2025 8:26 PM EDT [facility] Blood Capillary blood specimen / Unknown 07/16/2025 8:24 PM EDT 07/16/2025 8:26 PM EDT us Anne Franco MD LAB POINT OF CARE TEST DOCKED DEVICE UNSOLICITED RESULTS Final Result Performing Organization Address City/[facility] Co de Phone Number [facility] [address] [place] [address] * (ABNORMAL) POCT glucose meter (07/16/2025 5:34 [...] 07/16/2025 5:36 PM EDT [facility] Counseling Aide ID Diego Munroe 07/16/20 5:36 PM EDT [facility] Device ID [id number] 07/16/2025 5:36 PM EDT [facility] Specimen Type POC Capillary 07/16/2025 5:36 PM EDT [facility] Blood Capillary blood specimen / Unknown 07/16/2025 5:34 PM EDT 07/16/2025 5:36 PM EDT us Anne Franco MD LAB POINT OF CARE TEST DOCKED DEVICE UNSOLICITED RESULTS Final Result Performing Organization Address City/[facility]/ZIP Co de Phone Number [facility] [address] [place] [address] * (ABNORMAL) POCT glucose meter (07/16/2025 12:06 [...] for testing. Comment 07/16/2025 12:08 PM EDT [facility] Counseling Aide ID Diego Munroe 07/16/20 12:08 PM EDT [facility] Device ID [id number] 07/16/2025 12:08 PM EDT [facility]ALTH[facility] LAB Specimen Type POC Capillary 07/16/2025 12:08 PM EDT [facility] Blood Capillary blood specimen / Unknown 07/16/2025 12:06 PM EDT 07/16/2025 12:08 PM EDT us Anne Franco MD LAB POINT OF CARE TEST DOCKED DEVICE UNSOLICITED RESULTS Final Result Performing Organization Address City/State/[facility] Co de Phone Number [facility] [address] [place] [address] * XR Chest 1 View (07/16/2025 11:25 [...] Ham MD on 07/16/2025 9:43 AM us Anen Franco MD CV VASCULAR PROCEDURES Fi nal Result * (ABNORMAL) POCT glucose meter (07/16/2025 8:22 AM EDT) POCT Glucose 172(H) 74 - 99 mg/dL 07/16/2025 8:24 AM EDT [facility] Comment:Accuracy of a glucos e result [...] Comment 07/16/2025 8:24 AM EDT [facility]ALTH[facility] Counseling Aide ID Diego Munroe 07/16/20 8:24 AM EDT [facility] LAB Device ID [id number] 07/16/2025 8:24 AM EDT [facility] Specimen Type POC Capillary 07/16/2025 8:24 AM EDT [facility] Blood Capillary blood specimen / Unknown 07/16/2025 8:22 AM EDT 07/16/2025 8:24 AM EDT us Anne Franco MD LAB POINT OF CARE TEST DOCKED DEVICE UNSOLICITED RESULTS Final Result Performing Organization Address City/[facility] de Phone Number [facility] [address] [place] [address] * Phosphorus (07/16/2025 5:25 AM EDT) Phosphorus, Plasma 2.8 2.5 - 4.5 mg/dL 07/16/2025 7:12 AM EDT [facility] Blood Venous blood specimen / Unknown Venipuncture / Unknown 07/16/2025 5:25 AM EDT 07/16/2025 5:33 AM EDT us Anne Franco MD LAB BLOOD ORDERABLES Sarah l Result [facility] [address] [place] [address] * (ABNORMAL) Magnesium (07/16/2025 5:25 AM EDT) Magnesium, Plasma 1.8(L) 1.9 - 2.4 mg/dL 07/16/2025 7:12 AM EDT [facility] Blood Venous blood specimen / Unknown Venipuncture / Unknown 07/16/2025 5:25 AM EDT 07/16/2025 5:33 AM EDT us Anne Franco MD LAB BLOOD ORDERABLES Sarah bennett Result [facility] [address] [place] [address] * (ABNORMAL) Basic metabolic panel (07/16/2025 5:25 AM EDT) Glucose, Plasma 149(H) 74 - 99 mg/dL 07/16/2025 6:01 AM EDT [facility] BUN, Plasma 9 7 - 21 mg/dL 07/16/2025 6:01 AM EDT [facility] Creatinine, Plasma 0.48(L) 0.60 - 1.10 mg/dL 07/16/2025 6:01 AM EDT [facility] BUN/Creatinine Ratio 19 07/16/2025 6:01 AM EDT [facility] Sodium, Plasma 140 136 - 145 mmol/L 07/16/2025 6:01 AM EDT [facility] Potassium, Plasma 3.4(L) 3.6 - 4.9 mmol/L 07/16/2025 6:01 AM EDT [facility] Chloride, Plasma 99 97 - 107 mmol/L 07/16/2025 6:01 AM EDT [facility] CO2, Plasma 31(H) 22 - 29 mmol/L 07/16/2025 6:01 AM EDT [facility] Anion Gap 10 6 - 16 mmol/L 07/16/2025 6:01 AM EDT [facility] Total Calcium, Plasma 8.6(L) 8.9 - 10.2 mg/dL 07/16/2025 6:01 AM EDT [facility] eGFRcr 116.3 mL/min/1.7 3m*2 07/16/2025 6:01 AM EDT [facility] Comment:Reported eGFRcr in m L/min/1.73m2 is based the CKD-EPI 2020 equation that does not use a race coefficient. Blood Venous blood specimen / Unknown Venipuncture / Unknown 07/16/2025 5:25 AM EDT 07/16/2025 5:33 AM EDT us Anne Franco MD LAB BLOOD ORDERABLES Sarah sabrina Result [facility] [address] [place] [address] * (ABNORMAL) CBC W/O Differential (07/16/2025 5:25 AM EDT) WBC Count 22.22(H) 3.70 - 10.30 10*3/uL LAB HEMATOLOGY METHOD 07/16/2025 5:41 AM EDT [facility] RBC Count 3.30(L) 3.90 - 5.20 10*6/uL LAB HEMATOLOGY METHOD 07/16/2025 5:41 AM EDT [facility] HGB 8.9(L) 11.2 - 15.7 g/dL LAB HEMATOLOGY METHOD 07/16/2025 5:41 AM EDT [facility] HCT 28.9(L) 34.0 - 45.0 % LAB HEMATOLOGY METHOD 07/16/2025 5:41 AM EDT [facility] Platelet Count 376(H) 155 - 369 10*3/uL LAB HEMATOLOGY METHOD 07/16/2025 5:41 AM EDT [facility] MCV 88 79 - 98 fL LAB HEMATOLOGY METHOD 07/16/2025 5:41 AM EDT [facility] MCH 27.0 26.0 - 32.0 pg LAB HEMATOLOGY METHOD 07/16/2025 5:41 AM EDT [facility] MCHC 30.8 30.7 - 35.5 g/dL LAB HEMATOLOGY METHOD 07/16/2025 5:41 AM EDT [facility] RDW 17.2(H) 11.5 - 14.5 % LAB HEMATOLOGY METHOD 07/16/2025 5:41 AM EDT [facility] MPV 10.3 8.8 - 12.5 fL LAB HEMATOLOGY METHOD 07/16/2025 5:41 AM EDT [facility] nRBC 0.1(H) <=0.0 per 100 WBCs LAB HEMATOLOGY METHOD 07/16/2025 5:41 AM EDT [facility] Blood Venous blood specimen / Unknown Venipuncture / Unknown 07/16/2025 5:25 AM EDT 07/16/2025 5:33 AM EDT us Anne Franco MD LAB BLOOD ORDERABLES Sarah l Result [facility] [address] [place] [address] * (ABNORMAL) POCT glucose meter (07/15/2025 9:38 PM EDT) POCT Glucose 173(H) 74 - 99 mg/dL 07/15/2025 9:39 PM EDT [facility] Comment:Accuracy of [...] Comment 07/15/2025 9:39 PM EDT [facility] Counseling Aide ID Yessenia Ramirez 9:39 PM EDT [facility] Device ID [id number] 07/15/2025 9:39 PM EDT [facility] Specimen Type POC Capillary 07/15/2025 9:39 PM EDT [facility] Blood Capillary blood specimen / Unknown 07/15/2025 9:38 PM EDT 07/15/2025 9:39 PM EDT us Anne Franco MD LAB POINT OF CARE TEST DOCKED DEVICE UNSOLICITED RESULTS Final Result Performing Organization Address City/[facility] Co de Phone Number [facility] [address] [place] [address] * (ABNORMAL) POCT glucose meter (07/15/2025 6:03 PM EDT) Pathologist [facility] POCT Glucose 234(H) 74 - 99 mg/dL [...] 07/15/2025 6:04 PM EDT [facility] Counseling Aide ID Venessa Amin 07/15/2025 6:04 PM EDT [facility] Device ID [id number] 07/15/2025 6:04 PM EDT [facility] Specimen Type POC Capillary 07/15/2025 6:04 PM EDT [facility] Blood Capillary blood specimen / Unknown 07/15/2025 6:03 PM EDT 07/15/2025 6:04 PM EDT us Anne Franco MD LAB POINT OF CARE TEST DOCKED DEVICE UNSOLICITED RESULTS Final Result Performing Organization Address [facility] de Phone Number [facility] [address] [place] [address] * (ABNORMAL) POCT glucose meter (07/15/2025 12:38 [...] Comment 07/15/2025 12:40 PM EDT [facility] Counseling Aide ID Venessa Amin 07/15/2025 12:40 PM EDT [facility] Device ID [id number] 07/15/2025 12:40 PM EDT [facility] Specimen Type POC Capillary 07/15/2025 12:40 PM EDT [facility] Blood Capillary blood specimen / Unknown 07/15/2025 12:38 PM EDT 07/15/2025 12:40 PM EDT us Anne Franco MD LAB POINT OF CARE TEST DOCKED DEVICE UNSOLICITED RESULTS Final Result Performing Organization Address City/[facility] Co de Phone Number [facility] [address] [place] [address] * (ABNORMAL) POCT glucose meter (07/15/2025 8:38 AM EDT) [facility] POCT Glucose 132(H) 74 - 99 mg/dL 07/15/2025 8:39 AM EDT [facility] Comment:Accuracy of a [...] Comment 07/15/2025 8:39 AM EDT [facility] Counseling Aide ID Venessa Amin 07/15/2025 8:39 AM EDT [facility] Device ID [id number] 07/15/2025 8:39 AM EDT [facility] Specimen Type POC Capillary 07/15/2025 8:39 AM EDT [facility] Blood Capillary blood specimen / Unknown 07/15/2025 8:38 AM EDT 07/15/2025 8:39 AM EDT Anne Franco MD LAB POINT OF CARE TEST DOCKED DEVICE UNSOLICITED RESULTS Final Result Performing Organization Address City/[facility]/ZIP Co de Phone Number [facility] [address] [place] [address] * (ABNORMAL) Phosphorus (07/15/2025 4:50 AM EDT) [facility] Phosphorus, Plasma 2.3(L) 2.5 - 4.5 mg/dL 07/15/2025 7:33 AM EDT [facility] Blood Venous blood specimen / Unknown Venipuncture / Unknown 07/15/2025 4:50 AM EDT 07/15/2025 4:59 AM EDT Anne Franco MD LAB BLOOD ORDERABLES Sarah l Result [facility] [address] [place] [address] * Magnesium (07/15/2025 4:50 AM EDT) Magnesium, Plasma 1.9 1.9 - 2.4 mg/dL 07/15/2025 7:33 AM EDT [facility] Blood Venous blood specimen / Unknown Venipuncture / Unknown 07/15/2025 4:50 AM EDT 07/15/2025 4:59 AM EDT us Anne Franco MD LAB BLOOD ORDERABLES Sarah sabrian Result [facility] [address] [place] [address] * (ABNORMAL) Basic metabolic panel (07/15/2025 4:50 AM EDT) Pathologist [facility] Glucose, Plasma 150(H) 74 - 99 mg/dL 07/15/2025 5:31 AM EDT [facility] BUN, Plasma 11 7 - 21 mg/dL 07/15/2025 5:31 AM EDT [facility] Creatinine, Plasma 0.54(L) 0.60 - 1.10 mg/dL 07/15/2025 5:31 AM EDT [facility] BUN/Creatinine Ratio 20 07/15/2025 5:31 AM EDT [facility] Sodium, Plasma 136 136 - 145 mmol/L 07/15/2025 5:31 AM EDT [facility] Potassium, Plasma 4.1 3.6 - 4.9 mmol/L 07/15/2025 5:31 AM EDT [facility] Chloride, Plasma 95(L) 97 - 107 mmol/L 07/15/2025 5:31 AM EDT [facility] CO2, Plasma 32(H) 22 - 29 mmol/L 07/15/2025 5:31 AM EDT [facility] Anion Gap 9 6 - 16 mmol/L 07/15/2025 5:31 AM EDT [facility] Total Calcium, Plasma 8.8(L) 8.9 - 10.2 mg/dL 07/15/2025 5:31 AM EDT [facility] eGFRcr 113.0 mL/min/1.7 3m*2 07/15/2025 5:31 AM EDT [facility] Comment:Reported eGFRcr in m L/min/1.73m2 is based the CKD-EPI 2020 equation that does not use a race coefficient. Blood Venous blood specimen / Unknown Venipuncture / Unknown 07/15/2025 4:50 AM EDT 07/15/2025 4:59 AM EDT Anne Franco MD LAB BLOOD ORDERABLES Sarah l Result Performing Organization Address City/[facility]/ZIP Co de Phone Number [facility] [address] [place] [address] * (ABNORMAL) POCT glucose meter (07/14/2025 7:57 [...] Comment 07/14/2025 7:58 PM EDT [facility]ALTH[facility] Counseling Aide ID Bernard Chirinos 07/14/20 7:58 PM EDT [facility] Device ID [id number] 07/14/2025 7:58 PM EDT [facility] Specimen Type POC Capillary 07/14/2025 7:58 PM EDT [facility] Blood Capillary blood specimen / Unknown 07/14/2025 7:57 PM EDT 07/14/2025 7:58 PM EDT us Anne Franco MD LAB POINT OF CARE TEST DOCKED DEVICE UNSOLICITED RESULTS Final Result Performing Organization Address City/[facility]/ZIP Co de Phone Number [facility] [address] [place] [address] * (ABNORMAL) POCT glucose meter (07/14/2025 4:56 [...] 07/14/2025 4:58 PM EDT [facility] Counseling Aide ID Riana Higgins 07/14/2025 4:58 PM EDT [facility] Device ID [id number] 07/14/2025 4:58 PM EDT [facility] Specimen Type POC Capillary 07/14/2025 4:58 PM EDT [facility] Blood Capillary blood specimen / Unknown 07/14/2025 4:56 PM EDT 07/14/2025 4:58 PM EDT Anne Franco MD LAB POINT OF CARE TEST DOCKED DEVICE UNSOLICITED RESULTS Final Result Performing Organization Address City/State/[facility] Co de Phone Number [facility] [address] [place] [address] * (ABNORMAL) POCT glucose meter (07/14/2025 12:38 PM EDT) [facility] POCT Glucose 143(H) 74 - 99 mg/dL [...] for testing. Comment 07/14/2025 12:39 PM EDT [facility] Counseling Aide ID Laura Baez 025 12:39 PM EDT [facility] Device ID [id number] 07/14/2025 12:39 PM EDT [facility] Specimen Type POC Capillary 07/14/2025 12:39 PM EDT [facility] Blood Capillary blood specimen / Unknown 07/14/2025 12:38 PM EDT 07/14/2025 12:39 PM EDT us Anne Franco MD LAB POINT OF CARE TEST DOCKED DEVICE UNSOLICITED RESULTS Final Result [facility] [address] [place] [address] * (ABNORMAL) Basic metabolic panel (07/14/2025 9:36 AM EDT) Glucose, Plasma 191(H) 74 - 99 mg/dL 07/14/2025 10:15 AM EDT [facility] BUN, Plasma 16 7 - 21 mg/dL 07/14/2025 10:15 AM EDT [facility] Creatinine, Plasma 0.61 0.60 - 1.10 mg/dL 07/14/2025 10:15 AM EDT [facility] BUN/Creatinine Ratio 26 07/14/2025 10:15 AM EDT [facility] Sodium, Plasma 138 136 - 145 mmol/L 07/14/2025 10:15 AM EDT [facility] Potassium, Plasma 3.2(L) 3.6 - 4.9 mmol/L 07/14/2025 10:15 AM EDT [facility] Chloride, Plasma 96(L) 97 - 107 mmol/L 07/14/2025 10:15 AM EDT [facility] CO2, Plasma 33(H) 22 - 29 mmol/L 07/14/2025 10:15 AM EDT [facility] Anion Gap 9 6 - 16 mmol/L 07/14/2025 10:15 AM EDT [facility] Total Calcium, Plasma 8.7(L) 8.9 - 10.2 mg/dL 07/14/2025 10:15 AM EDT [facility] eGFRcr 109.8 mL/min/1.7 3m*2 07/14/2025 10:15 AM EDT [facility] Comment:Reported eGFRcr in m L/min/1.73m2 is based the CKD-EPI 2020 equation that does not use a race coefficient. Blood Venous blood specimen / Unknown Venipuncture / Unknown 07/14/2025 9:36 AM EDT 07/14/2025 9:44 AM EDT us Anne Franco MD LAB BLOOD ORDERABLES Sarah l Result Performing Organization Address City/[facility]/ZIP Co de Phone Number [facility] [address] [place] [address] * (ABNORMAL) Magnesium, Plasma (07/14/2025 9:36 AM EDT) Magnesium, Plasma 1.7(L) 1.9 - 2.4 mg/dL 07/14/2025 10:15 AM EDT [facility] Blood Venous blood specimen / Unknown Venipuncture / Unknown 07/14/2025 9:36 AM EDT 07/14/2025 9:44 AM EDT us Anne Franco MD LAB BLOOD ORDERABLES Sarah l Result Performing Organization Address [facility] Co de Phone Number [facility] [address] [place] [address] * (ABNORMAL) Phosphorus, Plasma (07/14/2025 9:36 AM EDT) Phosphorus, Plasma 2.2(L) 2.5 - 4.5 mg/dL 07/14/2025 10:15 AM EDT [facility] Blood Venous blood specimen / Unknown Venipuncture / Unknown 07/14/2025 9:36 AM EDT 07/14/2025 9:44 AM EDT us Anne Franco MD LAB BLOOD ORDERABLES Sarah l Result [facility] [address] [place] [address] * (ABNORMAL) CBC W/O Differential (07/14/2025 9:36 AM EDT) WBC Count 21.20(H) 3.70 - 10.30 10*3/uL LAB HEMATOLOGY METHOD 07/14/2025 9:52 AM EDT [facility] RBC Count 3.37(L) 3.90 - 5.20 10*6/uL LAB HEMATOLOGY METHOD 07/14/2025 9:52 AM EDT [facility] HGB 9.2(L) 11.2 - 15.7 g/dL LAB HEMATOLOGY METHOD 07/14/2025 9:52 AM EDT [facility] HCT 29.4(L) 34.0 - 45.0 % LAB HEMATOLOGY METHOD 07/14/2025 9:52 AM EDT [facility] Platelet Count 314 155 - 369 10*3/uL LAB HEMATOLOGY METHOD 07/14/2025 9:52 AM EDT [facility] MCV 87 79 - 98 fL LAB HEMATOLOGY METHOD 07/14/2025 9:52 AM EDT [facility] MCH 27.3 26.0 - 32.0 pg LAB HEMATOLOGY METHOD 07/14/2025 9:52 AM EDT [facility] MCHC 31.3 30.7 - 35.5 g/dL LAB HEMATOLOGY METHOD 07/14/2025 9:52 AM EDT [facility] RDW 17.2(H) 11.5 - 14.5 % LAB HEMATOLOGY METHOD 07/14/2025 9:52 AM EDT [facility] MPV 10.2 8.8 - 12.5 fL LAB HEMATOLOGY METHOD 07/14/2025 9:52 AM EDT [facility] nRBC 0.1(H) <=0.0 per 100 WBCs LAB HEMATOLOGY METHOD 07/14/2025 9:52 AM EDT [facility] Blood Venous blood specimen / Unknown Venipuncture / Unknown 07/14/2025 9:36 AM EDT 07/14/2025 9:44 AM EDT us Anne Franco MD LAB BLOOD ORDERABLES Sarah l Result [facility] [address] [place] [address] * (ABNORMAL) POCT glucose meter (07/14/2025 8:39 AM EDT) POCT Glucose 185(H) 74 - 99 mg/dL 07/14/2025 8:41 AM EDT [facility] Comment:Accuracy of a glucos [...] Comment 07/14/2025 8:41 AM EDT [facility] Counseling Aide ID Laura Baez 025 8:41 AM EDT [facility] Device ID [id number] 07/14/2025 8:41 AM EDT [facility] Specimen Type POC Capillary 07/14/2025 8:41 AM EDT [facility] Blood Capillary blood specimen / Unknown 07/14/2025 8:39 AM EDT 07/14/2025 8:41 AM EDT us Anne Franco MD LAB POINT OF CARE TEST DOCKED DEVICE UNSOLICITED RESULTS Final Result Performing Organization Address City/State/[facility] Co de Phone Number [facility] [address] [place] [address] * (ABNORMAL) POCT glucose meter (07/14/2025 6:18 [...] Comment 07/14/2025 6:20 AM EDT [facility] Counseling Aide ID Rita Alejandro 6:20 AM EDT [facility] Device ID [id number] 07/14/2025 6:20 AM EDT [facility] Specimen Type POC Capillary 07/14/2025 6:20 AM EDT [facility] Blood Capillary blood specimen / Unknown 07/14/2025 6:18 AM EDT 07/14/2025 6:20 AM EDT us Anne Franco MD LAB POINT OF CARE TEST DOCKED DEVICE UNSOLICITED RESULTS Final Result [facility] [address] [place] [address] * (ABNORMAL) POCT glucose meter (07/13/2025 9:18 [...] for testing. Comment 07/13/2025 9:19 PM EDT [facility] Counseling Aide ID Yenny Tong 025 9:19 PM EDT [facility] Device ID [id number] 07/13/2025 9:19 PM EDT [facility] Specimen Type POC Capillary 07/13/2025 9:19 PM EDT [facility] Blood Capillary blood specimen / Unknown 07/13/2025 9:18 PM EDT 07/13/2025 9:19 PM EDT us Anne Franco MD LAB POINT OF CARE TEST DOCKED DEVICE UNSOLICITED RESULTS Final Result Performing Organization Address City/[facility]/ZIP Co de Phone Number [facility] [address] [place] [address] * (ABNORMAL) POCT glucose meter (07/13/2025 6:01 PM EDT) POCT Glucose 128(H) 74 - 99 [...] Comment 07/13/2025 6:02 PM EDT [facility] Counseling Aide ID Laura Baez 025 6:02 PM EDT [facility] Device ID [id number] 07/13/2025 6:02 PM EDT [facility] Specimen Type POC Capillary 07/13/2025 6:02 PM EDT [facility] Blood Capillary blood specimen / Unknown 07/13/2025 6:01 PM EDT 07/13/2025 6:02 PM EDT Anne Franco MD LAB POINT OF CARE TEST DOCKED DEVICE UNSOLICITED RESULTS Final Result Performing Organization Address City/[facility]/ZIP Co de Phone Number [facility] [address] [place] [address] * (ABNORMAL) POCT glucose meter (07/13/2025 12:12 PM EDT) POCT Glucose 139(H) 74 - 99 mg/dL 07/13/2025 12:14 PM EDT [facility] Comment:Accuracy of [...] Comment 07/13/2025 12:14 PM EDT [facility] Counseling Aide ID Laura Baez 025 12:14 PM EDT [facility] Device ID [id number] 07/13/2025 12:14 PM EDT [facility] Specimen Type POC Capillary 07/13/2025 12:14 PM EDT [facility] Blood Capillary blood specimen / Unknown 07/13/2025 12:12 PM EDT 07/13/2025 12:14 PM EDT Anne Franco MD LAB POINT OF CARE TEST DOCKED DEVICE UNSOLICITED RESULTS Final Result Performing Organization Address City/[facility]/ZIP Co de Phone Number [facility] [address] [place] [address] * (ABNORMAL) Phosphorus (07/13/2025 10:21 AM EDT) Phosphorus, Plasma 2.2(L) 2.5 - 4.5 mg/dL 07/13/2025 11:23 AM EDT [facility] Blood Venous blood specimen / Unknown Venipuncture / Unknown 07/13/2025 10:21 AM EDT 07/13/2025 10:31 AM EDT Luanne Crawford MD LAB BLOOD ORDERABLES Final Result Performing Organization Address [facility]/ZIP Co de Phone Number [facility] [address] [place] [address] * (ABNORMAL) Magnesium, Plasma (07/13/2025 10:21 AM EDT) Magnesium, Plasma 1.7(L) 1.9 - 2.4 mg/dL 07/13/2025 11:23 AM EDT [facility] Blood Venous blood specimen / Unknown Venipuncture / Unknown 07/13/2025 10:21 AM EDT 07/13/2025 10:31 AM EDT Luanne Crawford MD LAB BLOOD ORDERABLES Final Result Performing Organization Address [facility] Co de Phone Number [facility] [address] [place] [address] * (ABNORMAL) Basic Metabolic Panel, Plasma (07/13/2025 10:21 AM EDT) Glucose, Plasma 135(H) 74 - 99 mg/dL 07/13/2025 11:23 AM EDT [facility] BUN, Plasma 22(H) 7 - 21 mg/dL 07/13/2025 11:23 AM EDT [facility] Creatinine, Plasma 0.62 0.60 - 1.10 mg/dL 07/13/2025 11:23 AM EDT [facility] BUN/Creatinine Ratio 35 07/13/2025 11:23 AM EDT [facility] Sodium, Plasma 138 136 - 145 mmol/L 07/13/2025 11:23 AM EDT [facility] Potassium, Plasma 3.7 3.6 - 4.9 mmol/L 07/13/2025 11:23 AM EDT [facility] Chloride, Plasma 95(L) 97 - 107 mmol/L 07/13/2025 11:23 AM EDT [facility] CO2, Plasma 30(H) 22 - 29 mmol/L 07/13/2025 11:23 AM EDT [facility] Anion Gap 13 6 - 16 mmol/L 07/13/2025 11:23 AM EDT [facility] Total Calcium, Plasma 9.0 8.9 - 10.2 mg/dL 07/13/2025 11:23 AM EDT [facility] eGFRcr 109.3 mL/min/1.7 3m*2 07/13/2025 11:23 AM EDT [facility] Comment:Reported eGFRcr in m L/min/1.73m2 is based the CKD-EPI 2020 equation that does not use a race coefficient. Blood Venous blood specimen / Unknown Venipuncture / Unknown 07/13/2025 10:21 AM EDT 07/13/2025 10:31 AM EDT us Luanne Crawford MD LAB BLOOD ORDERABLES Final Result [facility] [address] [place] [address] * (ABNORMAL) CBC W/O Differential (07/13/2025 10:21 AM EDT) WBC Count 19.56(H) 3.70 - 10.30 10*3/uL LAB HEMATOLOGY METHOD 07/13/2025 10:59 AM EDT [facility] RBC Count 3.67(L) 3.90 - 5.20 10*6/uL LAB HEMATOLOGY METHOD 07/13/2025 10:59 AM EDT [facility] HGB 10.2(L) 11.2 - 15.7 g/dL LAB HEMATOLOGY METHOD 07/13/2025 10:59 AM EDT [facility] HCT 32.3(L) 34.0 - 45.0 % LAB HEMATOLOGY METHOD 07/13/2025 10:59 AM EDT [facility] Platelet Count 296 155 - 369 10*3/uL LAB HEMATOLOGY METHOD 07/13/2025 10:59 AM EDT [facility] MCV 88 79 - 98 fL LAB HEMATOLOGY METHOD 07/13/2025 10:59 AM EDT [facility] MCH 27.8 26.0 - 32.0 pg LAB HEMATOLOGY METHOD 07/13/2025 10:59 AM EDT [facility] MCHC 31.6 30.7 - 35.5 g/dL LAB HEMATOLOGY METHOD 07/13/2025 10:59 AM EDT [facility] RDW 17.6(H) 11.5 - 14.5 % LAB HEMATOLOGY METHOD 07/13/2025 10:59 AM EDT [facility] MPV 10.3 8.8 - 12.5 fL LAB HEMATOLOGY METHOD 07/13/2025 10:59 AM EDT [facility] nRBC 0.0 <=0.0 per 100 WBCs LAB HEMATOLOGY METHOD 07/13/2025 10:59 AM EDT [facility] Blood Venous blood specimen / Unknown Venipuncture / Unknown 07/13/2025 10:21 AM EDT 07/13/2025 10:31 AM EDT Luanne Crawford MD LAB BLOOD ORDERABLES Final Result [facility] [address] [place] [address] * (ABNORMAL) POCT glucose meter (07/13/2025 8:50 [...] Comment 07/13/2025 8:53 AM EDT [facility] Counseling Aide ID BaezLaura 025 8:53 AM EDT [facility] Device ID [id number] 07/13/2025 8:53 AM EDT [facility] Specimen Type POC Capillary 07/13/2025 8:53 AM EDT [facility] Blood Capillary blood specimen / Unknown 07/13/2025 8:50 AM EDT 07/13/2025 8:53 AM EDT Anne Franco MD LAB POINT OF CARE TEST DOCKED DEVICE UNSOLICITED RESULTS Final Result Performing Organization Address City/[facility] Co de Phone Number [facility] [address] [place] [address] * (ABNORMAL) POCT glucose meter (07/13/2025 6:11 [...] for testing. Comment 07/13/2025 6:13 AM EDT [facility] Counseling Aide ID Rita Alejandro 6:13 AM EDT [facility] Device ID [id number] 07/13/2025 6:13 AM EDT [facility] Specimen Type POC Capillary 07/13/2025 6:13 AM EDT [facility] Blood Capillary blood specimen / Unknown 07/13/2025 6:11 AM EDT 07/13/2025 6:13 AM EDT us Anne Franco MD LAB POINT OF CARE TEST DOCKED DEVICE UNSOLICITED RESULTS Final Result Performing Organization Address City/[facility] Co de Phone Number [facility] [address] [place] [address] * (ABNORMAL) POCT glucose meter (07/12/2025 9:28 [...] Comment 07/12/2025 9:30 PM EDT [facility] Counseling Aide ID Yenny Tong 025 9:30 PM EDT [facility] Device ID [id number] 07/12/2025 9:30 PM EDT [facility] Specimen Type POC Capillary 07/12/2025 9:30 PM EDT [facility] Blood Capillary blood specimen / Unknown 07/12/2025 9:28 PM EDT 07/12/2025 9:30 PM EDT Anne Franco MD LAB POINT OF CARE TEST DOCKED DEVICE UNSOLICITED RESULTS Final Result [facility] [address] [place] [address] * (ABNORMAL) POCT glucose meter (07/12/2025 6:04 PM EDT) [facility] POCT Glucose 129(H) 74 - 99 mg/dL [...] Comment 07/12/2025 6:06 PM EDT [facility] Counseling Aide ID Jeana Bear 07/12/2025 6:06 PM EDT [facility] Device ID [id number] 07/12/2025 6:06 PM EDT [facility] Specimen Type POC Capillary 07/12/2025 6:06 PM EDT [facility] Blood Capillary blood specimen / Unknown 07/12/2025 6:04 PM EDT 07/12/2025 6:06 PM EDT Anne Franco MD LAB POINT OF CARE TEST DOCKED DEVICE UNSOLICITED RESULTS Final Result [facility] [address] [place] [address] * PERIPHERAL IV ([employer] LINK) (07/12/2025 3:51 [...] 07/12/2025 11:56 AM EDT [facility] Counseling Aide ID Jeana Bear 07/12/2025 11:56 AM EDT [facility] Device ID [id number] 07/12/2025 11:56 AM EDT [facility] Specimen Type POC Capillary 07/12/2025 11:56 AM EDT [facility] Blood Capillary blood specimen / Unknown 07/12/2025 11:55 AM EDT 07/12/2025 11:56 AM EDT Dorcas Hennessy MD LAB POINT OF CARE TE ST DOCKED DEVICE UNSOLICITED RESULTS Final Result [facility] [address] [place] [address] * XR Chest 1 View (07/12/2025 11:11 [...] - 99 mg/dL 07/12/2025 8:42 AM EDT [facility] Comment:Accuracy of [...] Comment 07/12/2025 8:42 AM EDT [facility] Counseling Aide ID Jeana Bear 07/12/2025 8:42 AM EDT [facility] Device ID [id number] 07/12/2025 8:42 AM EDT [facility] Specimen Type POC Capillary 07/12/2025 8:42 AM EDT [facility] Blood Capillary blood specimen / Unknown 07/12/2025 8:41 AM EDT 07/12/2025 8:42 AM EDT us Dorcas Henenssy MD LAB POINT OF CARE TE ST DOCKED DEVICE UNSOLICITED RESULTS Final Result Performing Organization Address City/[facility]/ZIP Co de Phone Number [facility] [address] [place] [address] * Phosphorus (07/12/2025 12:25 AM EDT) [facility] Phosphorus, Plasma 2.9 2.5 - 4.5 mg/dL 07/12/2025 1:22 AM EDT [facility] Blood Venous blood specimen / Unknown Venipuncture / Unknown 07/12/2025 12:25 AM EDT 07/12/2025 12:52 AM EDT us Luanne Crawford MD LAB BLOOD ORDERABLES Final Result [facility] [address] [place] [address] * Magnesium, Plasma (07/12/2025 12:25 AM EDT) [facility] Magnesium, Plasma 2.0 1.9 - 2.4 mg/dL 07/12/2025 1:22 AM EDT [facility] Blood Venous blood specimen / Unknown Venipuncture / Unknown 07/12/2025 12:25 AM EDT 07/12/2025 12:52 AM EDT us Luanne Crawford MD LAB BLOOD ORDERABLES Final Result [facility] [address] [place] [address] * (ABNORMAL) Basic Metabolic Panel, Plasma (07/12/2025 12:25 AM EDT) Glucose, Plasma 92 74 - 99 mg/dL 07/12/2025 1:22 AM EDT [facility] BUN, Plasma 18 7 - 21 mg/dL 07/12/2025 1:22 AM EDT [facility] Creatinine, Plasma 0.84 0.60 - 1.10 mg/dL 07/12/2025 1:22 AM EDT [facility] BUN/Creatinine Ratio 21 07/12/2025 1:22 AM EDT [facility] Sodium, Plasma 142 136 - 145 mmol/L 07/12/2025 1:22 AM EDT [facility] Potassium, Plasma 3.6 3.6 - 4.9 mmol/L 07/12/2025 1:22 AM EDT [facility] Chloride, Plasma 103 97 - 107 mmol/L 07/12/2025 1:22 AM EDT [facility] CO2, Plasma 31(H) 22 - 29 mmol/L 07/12/2025 1:22 AM EDT [facility] Anion Gap 8 6 - 16 mmol/L 07/12/2025 1:22 AM EDT [facility] Total Calcium, Plasma 8.8(L) 8.9 - 10.2 mg/dL 07/12/2025 1:22 AM EDT [facility] eGFRcr 85.3 mL/min/1.7 3m*2 07/12/2025 1:22 AM EDT [facility] Comment:Reported eGFRcr in m L/min/1.73m2 is based the CKD-EPI 2020 equation that does not use a race coefficient. Blood Venous blood specimen / Unknown Venipuncture / Unknown 07/12/2025 12:25 AM EDT 07/12/2025 12:52 AM EDT us Luanne Crawford MD LAB BLOOD ORDERABLES Final Result [facility] [address] [place] [address] * (ABNORMAL) CBC W/O Differential (07/12/2025 12:25 AM EDT) WBC Count 15.81(H) 3.70 - 10.30 10*3/uL LAB HEMATOLOGY METHOD 07/12/2025 1:05 AM EDT [facility] RBC Count 3.39(L) 3.90 - 5.20 10*6/uL LAB HEMATOLOGY METHOD 07/12/2025 1:05 AM EDT [facility] HGB 9.3(L) 11.2 - 15.7 g/dL LAB HEMATOLOGY METHOD 07/12/2025 1:05 AM EDT [facility] HCT 29.8(L) 34.0 - 45.0 % LAB HEMATOLOGY METHOD 07/12/2025 1:05 AM EDT [facility] Platelet Count 276 155 - 369 10*3/uL LAB HEMATOLOGY METHOD 07/12/2025 1:05 AM EDT [facility] MCV 88 79 - 98 fL LAB HEMATOLOGY METHOD 07/12/2025 1:05 AM EDT [facility] MCH 27.4 26.0 - 32.0 pg LAB HEMATOLOGY METHOD 07/12/2025 1:05 AM EDT [facility] MCHC 31.2 30.7 - 35.5 g/dL LAB HEMATOLOGY METHOD 07/12/2025 1:05 AM EDT [facility] RDW 18.0(H) 11.5 - 14.5 % LAB HEMATOLOGY METHOD 07/12/2025 1:05 AM EDT [facility] MPV 10.5 8.8 - 12.5 fL LAB HEMATOLOGY METHOD 07/12/2025 1:05 AM EDT [facility] nRBC 0.0 <=0.0 per 100 WBCs LAB HEMATOLOGY METHOD 07/12/2025 1:05 AM EDT [facility] Blood Venous blood specimen / Unknown Venipuncture / Unknown 07/12/2025 12:25 AM EDT 07/12/2025 12:55 AM EDT us Luanne Crawford MD LAB BLOOD ORDERABLES Final Result Performing Organization Address City/[facility]/ZIP Co de Phone Number [facility] [address] [place] [address] * (ABNORMAL) POCT Glucose (if patient NPO, on TPN or continuous nutrition) (07/11/2025 8:45 PM EDT) POCT Glucose 119(A) 74 - 99 mg/dL [facility] Test Strip Lot Number \[id number]\ [facility] Test Strip Expiration 09/24/2026 [facility] Blood Venous blood specimen / Unknown 07/11/2025 8:45 PM EDT us Dorcas Hennessy MD POINT OF CARE TEST ENTER/EDIT OR DERABLES Final Result Performing Organization Address [facility] Co de Phone Number [facility] [address] [place] [phone] * (ABNORMAL) POCT Glucose - Before Meals and Bedtime (07/11/2025 8:43 PM EDT) POCT Glucose 119(A) 74 - 99 mg/dL [facility] Test Strip Lot Number [id number] [facility] Test Strip Expiration 09/24/2026 [facility] Blood Venous blood specimen / Unknown 07/11/2025 8:43 PM EDT us Dorcas Hennessy MD POINT OF CARE TEST ENTER/EDIT OR DERABLES Final Result Performing Organization Address City/[facility]/ZIP Co de Phone Number [facility] [address] [place] [address] * (ABNORMAL) POCT glucose meter (07/11/2025 8:42 [...] 07/11/2025 8:43 PM EDT [facility] Counseling Aide ID Jf Cruz 07/11/2025 8:43 PM EDT [facility] Device ID [id number] 07/11/2025 8:43 PM EDT [facility] Specimen Type POC Capillary 07/11/2025 8:43 PM EDT [facility] Blood Capillary blood specimen / Unknown 07/11/2025 8:42 PM EDT 07/11/2025 8:43 PM EDT Dorcas Hennessy MD LAB POINT OF CARE TE ST DOCKED DEVICE UNSOLICITED RESULTS Final Result Performing Organization Address City/State/[facility] Co de Phone Number HEALTHCARE [facility] [address] [place] [address] * (ABNORMAL) POCT glucose meter (07/11/2025 5:38 PM EDT) [facility] POCT Glucose 142(H) 74 - 99 mg/dL [...] 07/11/2025 5:40 PM EDT [facility] Counseling Aide ID Ayana Amato 07/11/2025 5:40 PM EDT [facility] Device ID [id number] 07/11/2025 5:40 PM EDT [facility] Specimen Type POC Capillary 07/11/2025 5:40 PM EDT [facility] Blood Capillary blood specimen / Unknown 07/11/2025 5:38 PM EDT 07/11/2025 5:40 PM EDT Dorcas Hennessy MD LAB POINT OF CARE TE ST DOCKED DEVICE UNSOLICITED RESULTS Final Result Performing Organization Address City/[facility] Co de Phone Number [facility]ALTHCARE [facility] [address] [place] [address] * (ABNORMAL) POCT glucose meter (07/11/2025 3:36 [...] for testing. Comment 07/11/2025 3:38 PM EDT [facility] Counseling Aide ID Radha Frias 07/11/20 3:38 PM EDT [facility]ARE LAB Device ID [id number] 07/11/2025 3:38 PM EDT [facility] Specimen Type POC Venous 07/11/2025 3:38 PM EDT [facility] Blood Venous blood specimen / Unknown 07/11/2025 3:36 PM EDT 07/11/2025 3:38 PM EDT us Dorcas Hennessy MD LAB POINT OF CARE TE ST DOCKED DEVICE UNSOLICITED RESULTS Final Result Performing Organization Address City/[facility] Co de Phone Number [facility] [address] [place] [address] * (ABNORMAL) POCT glucose meter (07/11/2025 1:52 PM EDT) POCT Glucose 140(H) 74 - [...] for testing. Comment 07/11/2025 1:54 PM EDT [facility] Counseling Aide ID Ayana Amato 07/11/2025 1:54 PM EDT [facility]ARE [facility] Device ID [id number] 07/11/2025 1:54 PM EDT [facility] Specimen Type POC Capillary 07/11/2025 1:54 PM EDT [facility] Blood Capillary blood specimen / Unknown 07/11/2025 1:52 PM EDT 07/11/2025 1:54 PM EDT us Dorcas Hennessy MD LAB POINT OF CARE TE ST DOCKED DEVICE UNSOLICITED RESULTS Final Result Performing Organization Address [facility] Co de Phone Number [facility]ARE [facility] [address] [place] [address] * (ABNORMAL) POCT glucose meter (07/11/2025 12:12 PM EDT) [facility] POCT Glucose 154(H) 74 - 99 mg/dL 07/11/2025 12:13 PM EDT [facility] Comment:Accuracy of a [...] Comment 07/11/2025 12:13 PM EDT [facility] Counseling Aide ID Ayana Amato 07/11/2025 12:13 PM EDT [facility] Device ID [id number] 07/11/2025 12:13 PM EDT [facility] Specimen Type POC Capillary 07/11/2025 12:13 PM EDT [facility] Blood Capillary blood specimen / Unknown 07/11/2025 12:12 PM EDT 07/11/2025 12:13 PM EDT us Luanne Crawford MD LAB POINT OF CARE TEST DOCKED DEVICE UNSOLICITED RESULTS Final Result Performing Organization Address City/[facility]/ZIP Co de Phone Number HEALTHCARE [facility] [address] [place] [address] * (ABNORMAL) POCT glucose meter (07/11/2025 9:57 [...] Comment 07/11/2025 9:59 AM EDT [facility] Counseling Aide ID Ayana Amato 07/11/2025 9:59 AM EDT [facility]ARE [facility] Device ID [id number] 07/11/2025 9:59 AM EDT [facility] Specimen Type POC Capillary 07/11/2025 9:59 AM EDT [facility] Blood Capillary blood specimen / Unknown 07/11/2025 9:57 AM EDT 07/11/2025 9:59 AM EDT us Luanne Crawford MD LAB POINT OF CARE TEST DOCKED DEVICE UNSOLICITED RESULTS Final Result Performing Organization Address City/State/[facility] Co de Phone Number [facility] [address] [place] [address] * [place] [facility], E/M 30-74 MINUTES (07/11/2025 8:41 [...] - 99 mg/dL 07/11/2025 8:15 AM EDT [facility] Comment:Accuracy of [...] for testing. Comment 07/11/2025 8:15 AM EDT [facility] Counseling Aide ID Ayana Amato 07/11/2025 8:15 AM EDT [facility] Device ID [id number] 07/11/2025 8:15 AM EDT [facility]ARE [facility] Specimen Type POC Capillary 07/11/2025 8:15 AM EDT [facility] Blood Capillary blood specimen / Unknown 07/11/2025 8:13 AM EDT 07/11/2025 8:15 AM EDT us Luanne Crawford MD LAB POINT OF CARE TEST DOCKED DEVICE UNSOLICITED RESULTS Final Result [facility] [address] [place] [address] * (ABNORMAL) POCT glucose meter (07/11/2025 6:03 AM EDT) [facility] POCT Glucose 135(H) 74 - 99 mg/dL 07/11/2025 6:05 AM EDT [facility] Comment:Accuracy of [...] Comment 07/11/2025 6:05 AM EDT [facility] Counseling Aide ID Cheyanne Briceño 07/11/2025 6:05 AM EDT [facility]ARE LAB Device ID [id number] 07/11/2025 6:05 AM EDT [facility] Specimen Type POC Capillary 07/11/2025 6:05 AM EDT [facility] Blood Capillary blood specimen / Unknown 07/11/2025 6:03 AM EDT 07/11/2025 6:05 AM EDT us Luanne Crawford MD LAB POINT OF CARE TEST DOCKED DEVICE UNSOLICITED RESULTS Final Result [facility] [address] [place] [address] * (ABNORMAL) POCT glucose meter (07/11/2025 4:04 AM EDT) [facility] POCT Glucose 107(H) 74 - 99 mg/dL 07/11/2025 4:06 AM EDT [facility] Comment:Accuracy of [...] for testing. Comment 07/11/2025 4:06 AM EDT [facility] Counseling Aide ID Cheyanne Briceño 07/11/2025 4:06 AM EDT [facility] Device ID [id number] 07/11/2025 4:06 AM EDT [facility] Specimen Type POC Capillary 07/11/2025 4:06 AM EDT [facility] Blood Capillary blood specimen / Unknown 07/11/2025 4:04 AM EDT 07/11/2025 4:06 AM EDT Luanne Crawford MD LAB POINT OF CARE TEST DOCKED DEVICE UNSOLICITED RESULTS Final Result Performing Organization Address City/[facility]/ZIP Co de Phone Number [facility]ARE [facility] [address] [place] [address] * (ABNORMAL) POCT glucose meter (07/11/2025 2:02 AM EDT) [facility] POCT Glucose 130(H) 74 - 99 mg/dL [...] Comment 07/11/2025 2:03 AM EDT [facility] Counseling Aide ID Cheyanne Briceño 07/11/2025 2:03 AM EDT [facility] LAB Device ID [id number] 07/11/2025 2:03 AM EDT [facility] Specimen Type POC Capillary 07/11/2025 2:03 AM EDT [facility] Blood Capillary blood specimen / Unknown 07/11/2025 2:02 AM EDT 07/11/2025 2:03 AM EDT us Luanne Crawford MD LAB POINT OF CARE TEST DOCKED DEVICE UNSOLICITED RESULTS Final Result Performing Organization Address City/[facility]/ZIP Co de Phone Number [facility] [address] [place] [address] * Phosphorus (07/11/2025 12:09 AM EDT) Phosphorus, Plasma 3.7 2.5 - 4.5 mg/dL 07/11/2025 12:54 AM EDT [facility] Blood Venous blood specimen / Unknown Venipuncture / Unknown 07/11/2025 12:09 AM EDT 07/11/2025 12:26 AM EDT us Luanne Crawford MD LAB BLOOD ORDERABLES Final Result Performing Organization Address [facility] Co de Phone Number [facility] [address] [place] [address] * (ABNORMAL) Magnesium, Plasma (07/11/2025 12:09 AM EDT) Magnesium, Plasma 1.8(L) 1.9 - 2.4 mg/dL 07/11/2025 12:54 AM EDT [facility] Blood Venous blood specimen / Unknown Venipuncture / Unknown 07/11/2025 12:09 AM EDT 07/11/2025 12:26 AM EDT us Luanne Crawford MD LAB BLOOD ORDERABLES Final Result Performing Organization Address [facility] Co vt Phone Number [facility] [address] [place] [address] * (ABNORMAL) Basic Metabolic Panel, Plasma (07/11/2025 12:09 AM EDT) Glucose, Plasma 163(H) 74 - 99 mg/dL 07/11/2025 12:54 AM EDT [facility] BUN, Plasma 20 7 - 21 mg/dL 07/11/2025 12:54 AM EDT [facility] Creatinine, Plasma 0.99 0.60 - 1.10 mg/dL 07/11/2025 12:54 AM EDT [facility] BUN/Creatinine Ratio 20 07/11/2025 12:54 AM EDT [facility] Sodium, Plasma 141 136 - 145 mmol/L 07/11/2025 12:54 AM EDT [facility] Potassium, Plasma 3.8 3.6 - 4.9 mmol/L 07/11/2025 12:54 AM EDT [facility] Chloride, Plasma 104 97 - 107 mmol/L 07/11/2025 12:54 AM EDT [facility] CO2, Plasma 27 22 - 29 mmol/L 07/11/2025 12:54 AM EDT [facility] Anion Gap 10 6 - 16 mmol/L 07/11/2025 12:54 AM EDT [facility] Total Calcium, Plasma 9.1 8.9 - 10.2 mg/dL 07/11/2025 12:54 AM EDT [facility] eGFRcr 70.0 mL/min/1.7 3m*2 07/11/2025 12:54 AM EDT [facility] Comment:Reported eGFRcr in m L/min/1.73m2 is based the CKD-EPI 2020 equation that does not use a race coefficient. Blood Venous blood specimen / Unknown Venipuncture / Unknown 07/11/2025 12:09 AM EDT 07/11/2025 12:26 AM EDT us Luanne Crawford MD LAB BLOOD ORDERABLES Final Result [facility] [address] [place] [address] * (ABNORMAL) CBC W/O Differential (07/11/2025 12:09 AM EDT) WBC Count 13.23(H) 3.70 - 10.30 10*3/uL LAB HEMATOLOGY METHOD 07/11/2025 12:36 AM EDT [facility] RBC Count 3.65(L) 3.90 - 5.20 10*6/uL LAB HEMATOLOGY METHOD 07/11/2025 12:36 AM EDT [facility] HGB 10.1(L) 11.2 - 15.7 g/dL LAB HEMATOLOGY METHOD 07/11/2025 12:36 AM EDT [facility] HCT 32.1(L) 34.0 - 45.0 % LAB HEMATOLOGY METHOD 07/11/2025 12:36 AM EDT [facility] Platelet Count 270 155 - 369 10*3/uL LAB HEMATOLOGY METHOD 07/11/2025 12:36 AM EDT [facility] MCV 88 79 - 98 fL LAB HEMATOLOGY METHOD 07/11/2025 12:36 AM EDT [facility] MCH 27.7 26.0 - 32.0 pg LAB HEMATOLOGY METHOD 07/11/2025 12:36 AM EDT [facility] MCHC 31.5 30.7 - 35.5 g/dL LAB HEMATOLOGY METHOD 07/11/2025 12:36 AM EDT [facility] RDW 17.9(H) 11.5 - 14.5 % LAB HEMATOLOGY METHOD 07/11/2025 12:36 AM EDT [facility] MPV 10.7 8.8 - 12.5 fL LAB HEMATOLOGY METHOD 07/11/2025 12:36 AM EDT [facility] nRBC 0.0 <=0.0 per 100 WBCs LAB HEMATOLOGY METHOD 07/11/2025 12:36 AM EDT [facility] Blood Venous blood specimen / Unknown Venipuncture / Unknown 07/11/2025 12:09 AM EDT 07/11/2025 12:29 AM EDT us Luanne Crawford MD LAB BLOOD ORDERABLES Final Result [facility] [address] [place] [address] * (ABNORMAL) POCT glucose meter (07/11/2025 12:04 [...] Comment 07/11/2025 12:06 AM EDT [facility]ALTH[facility]ARE [facility] Counseling Aide ID Cheyanne Briceño 07/11/2025 12:06 AM EDT [facility]ALTH[facility]ARE LAB Device ID [id number] 07/11/2025 12:06 AM EDT [facility]ALTH[facility]ARE [facility] Specimen Type POC Capillary 07/11/2025 12:06 AM EDT [facility] Blood Capillary blood specimen / Unknown 07/11/2025 12:04 AM EDT 07/11/2025 12:06 AM EDT us Luanne Crawford MD LAB POINT OF CARE TEST DOCKED DEVICE UNSOLICITED RESULTS Final Result Performing Organization Address [facility] Co de Phone Number [facility]ARE [facility] [address] [place] [address] * (ABNORMAL) POCT glucose meter (07/10/2025 10:02 [...] for testing. Comment 07/10/2025 10:03 PM EDT [facility] Counseling Aide ID Lidia Ugalde 07/10/2025 10:03 PM EDT [facility] Device ID [id number] 07/10/2025 10:03 PM EDT [facility] Specimen Type POC Capillary 07/10/2025 10:03 PM EDT [facility] Blood Capillary blood specimen / Unknown 07/10/2025 10:02 PM EDT 07/10/2025 10:03 PM EDT us Luanne Crawford MD LAB POINT OF CARE TEST DOCKED DEVICE UNSOLICITED RESULTS Final Result Performing Organization Address City/[facility] Co de Phone Number [facility]ARE [facility] [address] [place] [address] * (ABNORMAL) Blood gas panel, arterial (07/10/2025 8:23 PM EDT) pH, Arterial 7.30(L) 7.35 - 7.45 LAB HEMATOLOGY METHOD 07/10/2025 8:40 PM EDT [facility] pCO2, Arterial 57(H) 35 - 48 mmHg LAB HEMATOLOGY METHOD 07/10/2025 8:40 PM EDT [facility] pO2, Arterial 80(L) 83 - 108 mmHg LAB HEMATOLOGY METHOD 07/10/2025 8:40 PM EDT [facility] SO2, Measured, Arterial 95 94 - 98 % LAB HEMATOLOGY METHOD 07/10/2025 8:40 PM EDT [facility] Base Excess, Arterial 1.1 -2.0 - 3.0 mmol/L LAB HEMATOLOGY METHOD 07/10/2025 8:40 PM EDT [facility] Bicarbonate, Calculated, Arterial 28(H) 22 - 26 mmol/L LAB HEMATOLOGY METHOD 07/10/2025 8:40 PM EDT [facility] Hematocrit, Whole Blood 31.5(L) 34.0 - 45.0 % LAB HEMATOLOGY METHOD 07/10/2025 8:40 PM EDT [facility] Sodium, Whole Blood 138 136 - 145 mmol/L LAB HEMATOLOGY METHOD 07/10/2025 8:40 PM EDT [facility] Potassium, Whole Blood 3.9 3.6 - 4.9 mmol/L LAB HEMATOLOGY METHOD 07/10/2025 8:40 PM EDT [facility] Chloride, Whole Blood 103 97 - 107 mmol/L LAB HEMATOLOGY METHOD 07/10/2025 8:40 PM EDT [facility] Glucose, Whole Blood 206(H) 74 - 99 mg/dL LAB HEMATOLOGY METHOD 07/10/2025 8:40 PM EDT [facility] Ionized Calcium, Whole Blood 5.0 4.6 - 5.1 mg/dL LAB HEMATOLOGY METHOD 07/10/2025 8:40 PM EDT [facility] Lactate, Arterial, Whole Blood 1.7(H) 0.5 - 1.6 mmol/L LAB HEMATOLOGY METHOD 07/10/2025 8:40 PM EDT [facility] Blood Arterial blood specimen / Unknown Arterial Puncture / Unknown 07/10/2025 8:23 PM EDT 07/10/2025 8:35 PM EDT us Luanne Crawford MD LAB BLOOD ORDERABLES Final Result [facility] [address] [place] [address] * (ABNORMAL) POCT glucose meter (07/10/2025 8:03 PM EDT) POCT Glucose 206(H) 74 - 99 mg/dL 07/10/2025 8:05 PM EDT [facility] Comment:Accuracy of [...] for testing. Comment 07/10/2025 8:05 PM EDT [facility] Counseling Aide ID Cheyanne Briceño 07/10/2025 8:05 PM EDT [facility] Device ID [id number] 07/10/2025 8:05 PM EDT [facility] Specimen Type POC Capillary 07/10/2025 8:05 PM EDT [facility] Blood Capillary blood specimen / Unknown 07/10/2025 8:03 PM EDT 07/10/2025 8:05 PM EDT us Luanne Crawford MD LAB POINT OF CARE TEST DOCKED DEVICE UNSOLICITED RESULTS Final Result [facility] [address] [place] [address] * (ABNORMAL) POCT glucose meter (07/10/2025 6:22 PM EDT) [facility] POCT Glucose 150(H) 74 - 99 mg/dL [...] for testing. Comment 07/10/2025 6:25 PM EDT [facility] Counseling Aide ID Zara Segovia 025 6:25 PM EDT [facility] Device ID [id number] 07/10/2025 6:25 PM EDT [facility] Specimen Type POC Capillary 07/10/2025 6:25 PM EDT [facility] Blood Capillary blood specimen / Unknown 07/10/2025 6:22 PM EDT 07/10/2025 6:25 PM EDT us Luanne Crawford MD LAB POINT OF CARE TEST DOCKED DEVICE UNSOLICITED RESULTS Final Result Performing Organization Address [facility] Co de Phone Number [facility] [address] [place] [address] * (ABNORMAL) POCT glucose meter (07/10/2025 2:17 [...] Comment 07/10/2025 2:19 PM EDT [facility]ALTH[facility] Counseling Aide ID Zara Segovia 025 2:19 PM EDT [facility] Device ID [id number] 07/10/2025 2:19 PM EDT [facility] Specimen Type POC Arterial 07/10/2025 2:19 PM EDT [facility] Blood Arterial blood specimen / Unknown 07/10/2025 2:17 PM EDT 07/10/2025 2:19 PM EDT us Luanne Crawford MD LAB POINT OF CARE TEST DOCKED DEVICE UNSOLICITED RESULTS Final Result Performing Organization Address City/[facility] Co de Phone Number [facility] [address] [place] [address] * XR Abdomen 1 View (07/10/2025 12:03 [...] of the abdomen. COMPARISON: None. FINDINGS: Limited [id number] abdominal radiograph for the purpose of locating tube position. The tip of the nasogastric tube is within the mid stomach. Procedure Note Bernabe Sen MD - 07/10/2025 CLINICAL INDICATION: feeding tube placement TECHNIQUE: Supine radiograph of the abdomen. COMPARISON: None. FINDINGS: Limited [id number] abdominal radiograph for the purpose of locatingtube position. The tip of the nasogastric tube is within the mid stomach. IMPRESSION: The tip of the nasogastric tube is within the mid stomach. CRITICAL RESULT: No. COMMUNICATION: Per this written report. Drafted by Bernabe Sen MD on 07/10/2025 12:32 PM Final report signed by Bernabe Sen MD on 07/10/2025 12:32 PM us Luanne Crawford MD IMG XR PROCEDURES [...] for testing. Comment 07/10/2025 12:02 PM EDT [facility] Counseling Aide ID Segovia, Symantha F 025 12:02 PM EDT [facility] Device ID [id number] 07/10/2025 12:02 PM EDT [facility] Specimen Type POC Arterial 07/10/2025 12:02 PM EDT [facility] Blood Arterial blood specimen / Unknown 07/10/2025 12:00 PM EDT 07/10/2025 12:02 PM EDT us Luanne Crawford MD LAB POINT OF CARE TEST DOCKED DEVICE UNSOLICITED RESULTS Final Result Performing Organization Address City/[facility] Co de Phone Number [facility] [address] [place] [address] * (ABNORMAL) POCT glucose meter (07/10/2025 9:50 AM EDT) POCT Glucose 134(H) 74 - 99 mg/dL 07/10/2025 9:52 AM EDT [facility] Comment:Accuracy of a [...] Comment 07/10/2025 9:52 AM EDT [facility] Counseling Aide ID Segovia, Symleandraa F 025 9:52 AM EDT [facility] Device ID [id number] 07/10/2025 9:52 AM EDT [facility] Specimen Type POC Arterial 07/10/2025 9:52 AM EDT [facility] Blood Arterial blood specimen / Unknown 07/10/2025 9:50 AM EDT 07/10/2025 9:52 AM EDT us Luanne Crawford MD LAB POINT OF CARE TEST DOCKED DEVICE UNSOLICITED RESULTS Final Result Performing Organization Address City/[facility] Co de Phone Number [facility] [address] [place] [address] * ECG Adult (07/10/2025 8:42 AM EDT) EKG DIAGNOSIS CLASS Abnormal MUSE ECG Ventricular Rate 79 BPM MUSE ECG Atrial Rate 79 BPM MUSE ECG CA Interval 188 ms MUSE ECG QRSD Interval 90 ms MUSE ECG QT Interval 354 ms MUSE ECG QTC Interval 405 ms MUSE ECG P Simpson 44 degrees MUSE ECG R Simpson 17 degrees MUSE ECG T Wave Simpson 27 degrees MUSE ECG Diagnosis Sinus rhythm with frequent premature ventricular complexes MUSE ECG Diagnosis Low voltage QRS MUSE ECG Diagnosis Cannot rule out Anterior infarct , age undetermined MUSE ECG Diagnosis MUSE ECG Diagnosis MUSE ECG Diagnosis Confirmed by Octavio Walsh ([id number]) on 07/10/2025 11:49:20 AM MUSE ECG 07/10/2025 8:42 AM EDT 07/10/2025 11:49 AM EDT us Luanne Crawford MD ECG ORDERABLES Final Resu lt MUSE ECG * [place] CR[facility] CARE, E/M 30-74 MINUTES (07/10/2025 8:15 [...] POCT glucose meter (07/10/2025 8:04 AM EDT) Pathologist [facility] POCT Glucose 163(H) 74 - 99 mg/dL 07/10/2025 9:22 AM EDT [facility] Comment:Accuracy of [...] Comment 07/10/2025 9:22 AM EDT [facility] Counseling Aide ID Zara Segovia 025 9:22 AM EDT [facility] Device ID [id number] 07/10/2025 9:22 AM EDT [facility] Specimen Type POC Arterial 07/10/2025 9:22 AM EDT [facility] Blood Arterial blood specimen / Unknown 07/10/2025 8:04 AM EDT 07/10/2025 9:22 AM EDT us Luanne Crawford MD LAB POINT OF CARE TEST DOCKED DEVICE UNSOLICITED RESULTS Final Result Performing Organization Address City/State/[facility] Co de Phone Number [facility] [address] [place] [address] * (ABNORMAL) POCT glucose meter (07/10/2025 6:04 AM EDT) [facility] POCT Glucose 187(H) 74 - 99 mg/dL 07/10/2025 6:05 AM EDT [facility] Comment:Accuracy of [...] for testing. Comment 07/10/2025 6:05 AM EDT [facility] Counseling Aide ID Cheyanne Briceño 07/10/2025 6:05 AM EDT [facility] Device ID [id number] 07/10/2025 6:05 AM EDT [facility] Specimen Type POC Arterial 07/10/2025 6:05 AM EDT [facility] Blood Arterial blood specimen / Unknown 07/10/2025 6:04 AM EDT 07/10/2025 6:05 AM EDT us Luanne Crawford MD LAB POINT OF CARE TEST DOCKED DEVICE UNSOLICITED RESULTS Final Result Performing Organization Address City/[facility] Co de Phone Number [facility] [address] [place] [address] * (ABNORMAL) POCT glucose meter (07/10/2025 3:59 AM EDT) POCT Glucose 153(H) 74 - 99 mg/dL 07/10/2025 4:01 AM EDT [facility] Comment:Accuracy of a [...] Comment 07/10/2025 4:01 AM EDT [facility] Counseling Aide ID Cheyanne Briceño 07/10/2025 4:01 AM EDT [facility] Device ID [id number] 07/10/2025 4:01 AM EDT [facility] Specimen Type POC Arterial 07/10/2025 4:01 AM EDT [facility] Blood Arterial blood specimen / Unknown 07/10/2025 3:59 AM EDT 07/10/2025 4:01 AM EDT us Luanne Crawford MD LAB POINT OF CARE TEST DOCKED DEVICE UNSOLICITED RESULTS Final Result Performing Organization Address City/[facility]/ZIP Co de Phone Number [facility] [address] [place] [address] * (ABNORMAL) POCT glucose meter (07/10/2025 3:01 [...] Comment 07/10/2025 3:03 AM EDT [facility] Counseling Aide ID Cheyanne Briceño 07/10/2025 3:03 AM EDT [facility] Device ID [id number] 07/10/2025 3:03 AM EDT [facility] Specimen Type POC Arterial 07/10/2025 3:03 AM EDT [facility] Blood Arterial blood specimen / Unknown 07/10/2025 3:01 AM EDT 07/10/2025 3:03 AM EDT us Luanne Crawford MD LAB POINT OF CARE TEST DOCKED DEVICE UNSOLICITED RESULTS Final Result Performing Organization Address City/State/[facility] Co de Phone Number [facility] [address] [place] [address] * (ABNORMAL) POCT glucose meter (07/10/2025 2:03 [...] Comment 07/10/2025 2:04 AM EDT [facility] Counseling Aide ID Cheyanne Briceño 07/10/2025 2:04 AM EDT [facility] Device ID [id number] 07/10/2025 2:04 AM EDT [facility] Specimen Type POC Arterial 07/10/2025 2:04 AM EDT [facility] Blood Arterial blood specimen / Unknown 07/10/2025 2:03 AM EDT 07/10/2025 2:04 AM EDT us Luanne Crawford MD LAB POINT OF CARE TEST DOCKED DEVICE UNSOLICITED RESULTS Final Result Performing Organization Address City/[facility]/ZIP Co de Phone Number [facility] [address] [place] [address] * (ABNORMAL) POCT glucose meter (07/10/2025 12:59 AM EDT) [facility] POCT Glucose 158(H) 74 - 99 mg/dL 07/10/2025 1:00 AM EDT [facility] Comment:Accuracy of a glucos [...] for testing. Comment 07/10/2025 1:00 AM EDT [facility] Counseling Aide ID Cheyanne Briceño 07/10/2025 1:00 AM EDT [facility] Device ID [id number] 07/10/2025 1:00 AM EDT [facility] Specimen Type POC Arterial 07/10/2025 1:00 AM EDT [facility] Blood Arterial blood specimen / Unknown 07/10/2025 12:59 AM EDT 07/10/2025 1:00 AM EDT us Luanne Crawford MD LAB POINT OF CARE TEST DOCKED DEVICE UNSOLICITED RESULTS Final Result Performing Organization Address City/[facility] Co de Phone Number [facility] [address] [place] [address] * Phosphorus (07/10/2025 12:03 AM EDT) [facility] Phosphorus, Plasma 4.2 2.5 - 4.5 mg/dL 07/10/2025 12:40 AM EDT [facility] Blood Arterial blood specimen / Unknown Venipuncture / Unknown 07/10/2025 12:03 AM EDT 07/10/2025 12:10 AM EDT us Luanne Crawford MD LAB BLOOD ORDERABLES Final Result [facility] [address] [place] [address] * Magnesium, Plasma (07/10/2025 12:03 AM EDT) Magnesium, Plasma 2.1 1.9 - 2.4 mg/dL 07/10/2025 12:40 AM EDT [facility] Blood Arterial blood specimen / Unknown Venipuncture / Unknown 07/10/2025 12:03 AM EDT 07/10/2025 12:10 AM EDT us Luanne Crawford MD LAB BLOOD ORDERABLES Final Result [facility] [address] [place] [address] * (ABNORMAL) Basic Metabolic Panel, Plasma (07/10/2025 12:03 AM EDT) Glucose, Plasma 155(H) 74 - 99 mg/dL 07/10/2025 12:40 AM EDT [facility] BUN, Plasma 22(H) 7 - 21 mg/dL 07/10/2025 12:40 AM EDT [facility] Creatinine, Plasma 1.25(H) 0.60 - 1.10 mg/dL 07/10/2025 12:40 AM EDT [facility] BUN/Creatinine Ratio 18 07/10/2025 12:40 AM EDT [facility] Sodium, Plasma 134(L) 136 - 145 mmol/L 07/10/2025 12:40 AM EDT [facility] Potassium, Plasma 3.7 3.6 - 4.9 mmol/L 07/10/2025 12:40 AM EDT [facility] Chloride, Plasma 101 97 - 107 mmol/L 07/10/2025 12:40 AM EDT [facility] CO2, Plasma 25 22 - 29 mmol/L 07/10/2025 12:40 AM EDT [facility] Anion Gap 8 6 - 16 mmol/L 07/10/2025 12:40 AM EDT [facility] Total Calcium, Plasma 9.3 8.9 - 10.2 mg/dL 07/10/2025 12:40 AM EDT [facility] eGFRcr 52.9 mL/min/1.7 3m*2 07/10/2025 12:40 AM EDT [facility] Comment:Reported eGFRcr in m L/min/1.73m2 is based the CKD-EPI 2020 equation that does not use a race coefficient. Blood Arterial blood specimen / Unknown Venipuncture / Unknown 07/10/2025 12:03 AM EDT 07/10/2025 12:10 AM EDT us Luanne Crawford MD LAB BLOOD ORDERABLES Final Result [facility] [address] [place] [address] * (ABNORMAL) CBC W/O Differential (07/10/2025 12:03 AM EDT) WBC Count 17.64(H) 3.70 - 10.30 10*3/uL LAB HEMATOLOGY METHOD 07/10/2025 12:22 AM EDT [facility] RBC Count 3.83(L) 3.90 - 5.20 10*6/uL LAB HEMATOLOGY METHOD 07/10/2025 12:22 AM EDT [facility] HGB 10.6(L) 11.2 - 15.7 g/dL LAB HEMATOLOGY METHOD 07/10/2025 12:22 AM EDT [facility] HCT 33.3(L) 34.0 - 45.0 % LAB HEMATOLOGY METHOD 07/10/2025 12:22 AM EDT [facility] Platelet Count 309 155 - 369 10*3/uL LAB HEMATOLOGY METHOD 07/10/2025 12:22 AM EDT [facility] MCV 87 79 - 98 fL LAB HEMATOLOGY METHOD 07/10/2025 12:22 AM EDT [facility] MCH 27.7 26.0 - 32.0 pg LAB HEMATOLOGY METHOD 07/10/2025 12:22 AM EDT [facility] MCHC 31.8 30.7 - 35.5 g/dL LAB HEMATOLOGY METHOD 07/10/2025 12:22 AM EDT [facility] RDW 17.9(H) 11.5 - 14.5 % LAB HEMATOLOGY METHOD 07/10/2025 12:22 AM EDT [facility] MPV 10.3 8.8 - 12.5 fL LAB HEMATOLOGY METHOD 07/10/2025 12:22 AM EDT [facility] nRBC 0.0 <=0.0 per 100 WBCs LAB HEMATOLOGY METHOD 07/10/2025 12:22 AM EDT [facility] Blood Arterial blood specimen / Unknown Venipuncture / Unknown 07/10/2025 12:03 AM EDT 07/10/2025 12:11 AM EDT us Luanne Crawford MD LAB BLOOD ORDERABLES Final Result Performing Organization Address City/[facility] Co de Phone Number [facility] [address] [place] [address] * (ABNORMAL) POCT glucose meter (07/10/2025 12:02 [...] Comment 07/10/2025 12:04 AM EDT [facility] Counseling Aide ID Cheyanne Briceño 07/10/2025 12:04 AM EDT [facility] Device ID [id number] 07/10/2025 12:04 AM EDT [facility] Specimen Type POC Arterial 07/10/2025 12:04 AM EDT [facility] Blood Arterial blood specimen / Unknown 07/10/2025 12:02 AM EDT 07/10/2025 12:04 AM EDT us Luanne Crawford MD LAB POINT OF CARE TEST DOCKED DEVICE UNSOLICITED RESULTS Final Result Performing Organization Address City/[facility]/ZIP Co de Phone Number [facility] [address] [place] [address] * (ABNORMAL) POCT glucose meter (07/09/2025 10:01 PM EDT) [facility] POCT Glucose 183(H) 74 - 99 mg/dL [...] 07/09/2025 10:04 PM EDT [facility] Counseling Aide ID Cheyanne Briceño 07/09/2025 10:04 PM EDT [facility] Device ID [id number] 07/09/2025 10:04 PM EDT [facility] Specimen Type POC Arterial 07/09/2025 10:04 PM EDT [facility] Blood Arterial blood specimen / Unknown 07/09/2025 10:01 PM EDT 07/09/2025 10:04 PM EDT us Luanne Crawford MD LAB POINT OF CARE TEST DOCKED DEVICE UNSOLICITED RESULTS Final Result Performing Organization Address City/State/[facility] Co de Phone Number [facility] [address] [place] [address] * (ABNORMAL) POCT glucose meter (07/09/2025 8:09 PM EDT) [facility] POCT Glucose 188(H) 74 - 99 mg/dL [...] 07/09/2025 8:11 PM EDT [facility] Counseling Aide ID Cheyanne Briceño 07/09/2025 8:11 PM EDT [facility] Device ID [id number] 07/09/2025 8:11 PM EDT [facility] Specimen Type POC Capillary 07/09/2025 8:11 PM EDT [facility] Blood Capillary blood specimen / Unknown 07/09/2025 8:09 PM EDT 07/09/2025 8:11 PM EDT Luanne Crawford MD LAB POINT OF CARE TEST DOCKED DEVICE UNSOLICITED RESULTS Final Result Performing Organization Address [facility] Co de Phone Number [facility] [address] [place] [address] * (ABNORMAL) POCT glucose meter (07/09/2025 6:22 PM EDT) Pathologist [facility] POCT Glucose 151(H) 74 - 99 mg/dL [...] for testing. Comment 07/09/2025 6:24 PM EDT [facility] Counseling Aide ID Jeana Bear 07/09/2025 6:24 PM EDT [facility] Device ID [id number] 07/09/2025 6:24 PM EDT [facility] Specimen Type POC Capillary 07/09/2025 6:24 PM EDT [facility] Blood Capillary blood specimen / Unknown 07/09/2025 6:22 PM EDT 07/09/2025 6:24 PM EDT Luanne Crawford MD LAB POINT OF CARE TEST DOCKED DEVICE UNSOLICITED RESULTS Final Result Performing Organization Address City/[facility] Co de Phone Number [facility] [address] [place] [address] * (ABNORMAL) POCT glucose meter (07/09/2025 4:06 PM EDT) [facility] POCT Glucose 144(H) 74 - 99 mg/dL [...] Comment 07/09/2025 4:07 PM EDT [facility] Counseling Aide ID Jeana Bear 07/09/2025 4:07 PM EDT [facility] Device ID [id number] 07/09/2025 4:07 PM EDT [facility] Specimen Type POC Capillary 07/09/2025 4:07 PM EDT [facility] Blood Capillary blood specimen / Unknown 07/09/2025 4:06 PM EDT 07/09/2025 4:07 PM EDT us Luanne Crawford MD LAB POINT OF CARE TEST DOCKED DEVICE UNSOLICITED RESULTS Final Result [facility] [address] [place] [address] * (ABNORMAL) Blood gas, arterial (07/09/2025 3:16 PM EDT) pH, Arterial 7.31(L) 7.35 - 7.45 LAB HEMATOLOGY METHOD 07/09/2025 3:40 PM EDT [facility] pCO2, Arterial 53(H) 35 - 48 mmHg LAB HEMATOLOGY METHOD 07/09/2025 3:40 PM EDT [facility] pO2, Arterial 153(H) 83 - 108 mmHg LAB HEMATOLOGY METHOD 07/09/2025 3:40 PM EDT [facility] SO2, Measured, Arterial 100(H) 94 - 98 % LAB HEMATOLOGY METHOD 07/09/2025 3:40 PM EDT [facility] Base Excess, Arterial -0.4 -2.0 - 3.0 mmol/L LAB HEMATOLOGY METHOD 07/09/2025 3:40 PM EDT [facility] Bicarbonate, Calculated, Arterial 26 22 - 26 mmol/L LAB HEMATOLOGY METHOD 07/09/2025 3:40 PM EDT [facility] Hematocrit, Whole Blood 30.6(L) 34.0 - 45.0 % LAB HEMATOLOGY METHOD 07/09/2025 3:40 PM EDT [facility] Sodium, Whole Blood 141 136 - 145 mmol/L LAB HEMATOLOGY METHOD 07/09/2025 3:40 PM EDT [facility] Potassium, Whole Blood 3.4(L) 3.6 - 4.9 mmol/L LAB HEMATOLOGY METHOD 07/09/2025 3:40 PM EDT [facility] Chloride, Whole Blood 107 97 - 107 mmol/L LAB HEMATOLOGY METHOD 07/09/2025 3:40 PM EDT [facility] Glucose, Whole Blood 141(H) 74 - 99 mg/dL LAB HEMATOLOGY METHOD 07/09/2025 3:40 PM EDT [facility] Ionized Calcium, Whole Blood 4.9 4.6 - 5.1 mg/dL LAB HEMATOLOGY METHOD 07/09/2025 3:40 PM EDT [facility] Lactate, Arterial, Whole Blood 0.9 0.5 - 1.6 mmol/L LAB HEMATOLOGY METHOD 07/09/2025 3:40 PM EDT [facility] Blood Arterial blood specimen / Unknown Arterial Line / Unknown 07/09/2025 3:16 PM EDT 07/09/2025 3:38 PM EDT us Luanne Crawford MD LAB BLOOD ORDERABLES Final Result [facility] [address] [place] [address] * (ABNORMAL) POCT glucose meter (07/09/2025 3:01 PM EDT) POCT Glucose 135(H) 74 - 99 mg/dL 07/09/2025 3:03 PM EDT [facility] Comment:Accuracy of a [...] Comment 07/09/2025 3:03 PM EDT [facility] Counseling Aide ID Jeana Bear 07/09/2025 3:03 PM EDT [facility] Device ID [id number] 07/09/2025 3:03 PM EDT [facility] Specimen Type POC Capillary 07/09/2025 3:03 PM EDT [facility] Blood Capillary blood specimen / Unknown 07/09/2025 3:01 PM EDT 07/09/2025 3:03 PM EDT Luanne Crawford MD LAB POINT OF CARE TEST DOCKED DEVICE UNSOLICITED RESULTS Final Result [facility] [address] [place] [address] * (ABNORMAL) POCT glucose meter (07/09/2025 1:57 PM EDT) [facility] POCT Glucose 115(H) 74 - 99 mg/dL [...] Comment 07/09/2025 1:59 PM EDT [facility] Counseling Aide ID Jeana Bear 07/09/2025 1:59 PM EDT [facility] Device ID [id number] 07/09/2025 1:59 PM EDT [facility] Specimen Type POC Capillary 07/09/2025 1:59 PM EDT [facility] Blood Capillary blood specimen / Unknown 07/09/2025 1:57 PM EDT 07/09/2025 1:59 PM EDT Luanne Crawford MD LAB POINT OF CARE TEST DOCKED DEVICE UNSOLICITED RESULTS Final Result [facility] [address] [place] [address] * Phosphorus (07/09/2025 1:21 PM EDT) Pathologist [facility] Phosphorus, Plasma 4.2 2.5 - 4.5 mg/dL 07/09/2025 2:49 PM EDT [facility] Blood Arterial blood specimen / Unknown Arterial Line / Unknown 07/09/2025 1:21 PM EDT 07/09/2025 2:01 PM EDT us Luanne Crawford MD LAB BLOOD ORDERABLES Final Result Performing Organization Address City/[facility]/ZIP Co de Phone Number [facility] [address] [place] [address] * Magnesium (07/09/2025 1:21 PM EDT) Magnesium, Plasma 2.3 1.9 - 2.4 mg/dL 07/09/2025 2:49 PM EDT [facility] Blood Arterial blood specimen / Unknown Arterial Line / Unknown 07/09/2025 1:21 PM EDT 07/09/2025 2:01 PM EDT us Luanne Crawford MD LAB BLOOD ORDERABLES Final Result Performing Organization Address [facility] Co de Phone Number [facility] [address] [place] [address] * (ABNORMAL) Basic metabolic panel (07/09/2025 1:21 PM EDT) Glucose, Plasma 100(H) 74 - 99 mg/dL 07/09/2025 2:49 PM EDT [facility] BUN, Plasma 26(H) 7 - 21 mg/dL 07/09/2025 2:49 PM EDT [facility] Creatinine, Plasma 1.42(H) 0.60 - 1.10 mg/dL 07/09/2025 2:49 PM EDT [facility] BUN/Creatinine Ratio 18 07/09/2025 2:49 PM EDT [facility] Sodium, Plasma 140 136 - 145 mmol/L 07/09/2025 2:49 PM EDT [facility] Potassium, Plasma 3.7 3.6 - 4.9 mmol/L 07/09/2025 2:49 PM EDT [facility] Chloride, Plasma 104 97 - 107 mmol/L 07/09/2025 2:49 PM EDT [facility] CO2, Plasma 24 22 - 29 mmol/L 07/09/2025 2:49 PM EDT [facility] Anion Gap 12 6 - 16 mmol/L 07/09/2025 2:49 PM EDT [facility] Total Calcium, Plasma 9.1 8.9 - 10.2 mg/dL 07/09/2025 2:49 PM EDT [facility] eGFRcr 45.4 mL/min/1.7 3m*2 07/09/2025 2:49 PM EDT [facility] Comment:Reported eGFRcr in m L/min/1.73m2 is based the CKD-EPI 2020 equation that does not use a race coefficient. Blood Arterial blood specimen / Unknown Arterial Line / Unknown 07/09/2025 1:21 PM EDT 07/09/2025 2:01 PM EDT us Luanne Crawford MD LAB BLOOD ORDERABLES Final Result [facility] [address] [place] [address] * (ABNORMAL) POCT glucose meter (07/09/2025 1:20 PM EDT) [facility] POCT Glucose 103(H) 74 - 99 mg/dL 07/09/2025 1:22 PM EDT [facility] Comment:Accuracy of [...] Comment 07/09/2025 1:22 PM EDT [facility] Counseling Aide ID Jeana Bear 07/09/2025 1:22 PM EDT [facility] Device ID [id number] 07/09/2025 1:22 PM EDT [facility] Specimen Type POC Arterial 07/09/2025 1:22 PM EDT [facility] Blood Arterial blood specimen / Unknown 07/09/2025 1:20 PM EDT 07/09/2025 1:22 PM EDT us Luanne Crawford MD LAB POINT OF CARE TEST DOCKED DEVICE UNSOLICITED RESULTS Final Result Performing Organization Address City/[facility]/ZIP Co de Phone Number [facility] [address] [place] [address] * (ABNORMAL) POCT glucose meter (07/09/2025 12:44 PM EDT) [facility] POCT Glucose 110(H) 74 - 99 mg/dL [...] Comment 07/09/2025 12:45 PM EDT [facility] Counseling Aide ID Jeana Bear 07/09/2025 12:45 PM EDT [facility] Device ID [id number] 07/09/2025 12:45 PM EDT [facility] Specimen Type POC Capillary 07/09/2025 12:45 PM EDT [facility] Blood Capillary blood specimen / Unknown 07/09/2025 12:44 PM EDT 07/09/2025 12:45 PM EDT Luanne Crawford MD LAB POINT OF CARE TEST DOCKED DEVICE UNSOLICITED RESULTS Final Result Performing Organization Address City/[facility]/ZIP Co de Phone Number [facility] [address] [place] [address] * (ABNORMAL) POCT glucose meter (07/09/2025 12:19 PM EDT) [facility] POCT Glucose 62(L) 74 - 99 mg/dL [...] 07/09/2025 12:21 PM EDT [facility] Counseling Aide ID Jeana Bear 07/09/2025 12:21 PM EDT [facility] Device ID [id number] 07/09/2025 12:21 PM EDT [facility] Specimen Type POC Capillary 07/09/2025 12:21 PM EDT [facility] Blood Capillary blood specimen / Unknown 07/09/2025 12:19 PM EDT 07/09/2025 12:21 PM EDT us Luanne Crawford MD LAB POINT OF CARE TEST DOCKED DEVICE UNSOLICITED RESULTS Final Result Performing Organization Address City/[facility]/ZIP Co de Phone Number [facility] [address] [place] [address] * Blood Culture (Aerobic/Anaerobet Set) (07/09/2025 10:35 AM EDT) Culture No growth at day 5 KAROLINA 07/14/2025 12:02 PM EDT [facility] Blood Structure of antecubital vein / Unknown Venipuncture / Unknown 07/09/2025 10:35 AM EDT 07/09/2025 10:50 AM EDT us My Charles MD LAB MICROBIOLOGY - GENE RAL ORDERABLES Final Result Performing Organization Address City/[facility] Co de Phone Number [facility] [address] [place] [address] * Blood Culture (Aerobic/Anaerobet Set) (07/09/2025 10:35 AM EDT) Culture No growth at day 5 KAROLINA 07/14/2025 12:02 PM EDT [facility] Blood Structure of antecubital vein / Unknown Venipuncture / Unknown 07/09/2025 10:35 AM EDT 07/09/2025 10:50 AM EDT us My Charles MD LAB MICROBIOLOGY - GENE RAL ORDERABLES Final Result Performing Organization Address City/[facility]/ZIP Co de Phone Number [facility] [address] [place] [address] * (ABNORMAL) POCT glucose meter (07/09/2025 10:04 [...] Comment 07/09/2025 10:05 AM EDT [facility] Counseling Aide ID Jeana Bear 07/09/2025 10:05 AM EDT [facility] Device ID [id number] 07/09/2025 10:05 AM EDT [facility] Specimen Type POC Capillary 07/09/2025 10:05 AM EDT [facility] Blood Capillary blood specimen / Unknown 07/09/2025 10:04 AM EDT 07/09/2025 10:05 AM EDT us Luanne Crawford MD LAB POINT OF CARE TEST DOCKED DEVICE UNSOLICITED RESULTS Final Result Performing Organization Address City/State/[facility] Co de Phone Number [facility] [address] [place] [address] * Multi Drug Resistance Test (07/09/2025 9:46 AM EDT) [facility] Culture No growth at day 1 07/10/2025 11:58 AM EDT [facility] Swab (Nares and Leann Rectal) Non-blood Collection / Unknown 07/09/2025 9:46 AM EDT 07/09/2025 10:09 AM EDT Narrative [facility] - 07/10/2025 11:58 AM EDT This test was developed and its performance characteristics determined by the [facility]. Although the media is FDA-approved, it is not FDA-approved for all specimen types submitted. The FDA has determined that such clearance or approval is not necessary. This test is used for surveillance purposes. It should not be regarded as investigational or for research. The [facility] is certified under the Clinical Laboratory Improvement Amendments of 1988 (CLIA-88) as qualified to perform high complexity clinical laboratory testing. us Luanne Crawford MD LAB MICROBIOLOGY - GENERAL ORDERABLES Final Result [facility] [address] [place] [address] * (ABNORMAL) Blood gas, arterial (07/09/2025 8:47 AM EDT) pH, Arterial 7.30(L) 7.35 - 7.45 LAB HEMATOLOGY METHOD 07/09/2025 8:55 AM EDT [facility] pCO2, Arterial 53(H) 35 - 48 mmHg LAB HEMATOLOGY METHOD 07/09/2025 8:55 AM EDT [facility] pO2, Arterial 173(H) 83 - 108 mmHg LAB HEMATOLOGY METHOD 07/09/2025 8:55 AM EDT [facility] SO2, Measured, Arterial 98 94 - 98 % LAB HEMATOLOGY METHOD 07/09/2025 8:55 AM EDT [facility] Base Excess, Arterial -0.8 -2.0 - 3.0 mmol/L LAB HEMATOLOGY METHOD 07/09/2025 8:55 AM EDT [facility] Bicarbonate, Calculated, Arterial 26 22 - 26 mmol/L LAB HEMATOLOGY METHOD 07/09/2025 8:55 AM EDT [facility] Hematocrit, Whole Blood 27.3(L) 34.0 - 45.0 % LAB HEMATOLOGY METHOD 07/09/2025 8:55 AM EDT [facility] Sodium, Whole Blood 140 136 - 145 mmol/L LAB HEMATOLOGY METHOD 07/09/2025 8:55 AM EDT [facility] Potassium, Whole Blood 2.9(L) 3.6 - 4.9 mmol/L LAB HEMATOLOGY METHOD 07/09/2025 8:55 AM EDT [facility] Chloride, Whole Blood 106 97 - 107 mmol/L LAB HEMATOLOGY METHOD 07/09/2025 8:55 AM EDT [facility] Glucose, Whole Blood 155(H) 74 - 99 mg/dL LAB HEMATOLOGY METHOD 07/09/2025 8:55 AM EDT [facility] Ionized Calcium, Whole Blood 5.0 4.6 - 5.1 mg/dL LAB HEMATOLOGY METHOD 07/09/2025 8:55 AM EDT [facility] Lactate, Arterial, Whole Blood 1.4 0.5 - 1.6 mmol/L LAB HEMATOLOGY METHOD 07/09/2025 8:55 AM EDT [facility] Blood Arterial blood specimen / Unknown Arterial Line / Unknown 07/09/2025 8:47 AM EDT 07/09/2025 8:54 AM EDT us Dorcas Hennessy MD LAB BLOOD ORDERABLES Final Resul t Performing Organization Address City/[facility]/ZIP Co de Phone Number [facility] [address] [place] [address] * (ABNORMAL) POCT glucose meter (07/09/2025 8:01 AM EDT) [facility] POCT Glucose 200(H) 74 - 99 mg/dL 07/09/2025 8:03 AM EDT [facility] Comment:Accuracy of [...] Comment 07/09/2025 8:03 AM EDT [facility] Counseling Aide ID Jeana Bear 07/09/2025 8:03 AM EDT [facility] Device ID [id number] 07/09/2025 8:03 AM EDT [facility] Specimen Type POC Capillary 07/09/2025 8:03 AM EDT [facility] Blood Capillary blood specimen / Unknown 07/09/2025 8:01 AM EDT 07/09/2025 8:03 AM EDT us Luanne Crawford MD LAB POINT OF CARE TEST DOCKED DEVICE UNSOLICITED RESULTS Final Result [facility] [address] [place] [address] * [place] [facility], E/M 30-74 MINUTES (07/09/2025 7:15 [...] POCT glucose meter (07/09/2025 6:05 AM EDT) [facility] POCT Glucose 196(H) 74 - 99 mg/dL 07/09/2025 6:20 AM EDT [facility] Comment:Accuracy of a glucos e result [...] for testing. Comment 07/09/2025 6:20 AM EDT [facility] Counseling Aide ID Cheyanne Briceño 07/09/2025 6:20 AM EDT [facility] Device ID [id number] 07/09/2025 6:20 AM EDT [facility] Specimen Type POC Arterial 07/09/2025 6:20 AM EDT [facility] Blood Arterial blood specimen / Unknown 07/09/2025 6:05 AM EDT 07/09/2025 6:20 AM EDT us Luanne Crawford MD LAB POINT OF CARE TEST DOCKED DEVICE UNSOLICITED RESULTS Final Result Performing Organization Address City/[facility]/ZIP Co de Phone Number [facility] [address] [place] [address] * (ABNORMAL) Hemoglobin A1c (07/09/2025 4:57 AM EDT) Hemoglobin A1c 7.5(H) <5.7 % 07/09/2025 12:09 PM EDT [facility] Blood Arterial blood specimen / Unknown Venipuncture / Unknown 07/09/2025 4:57 AM EDT 07/09/2025 5:07 AM EDT Narrative [facility] - 07/09/2025 12:09 PM EDT HA1C Interpretive Data: Diagnosis of Diabetes: Diabetic > or = 6.5% Pre-diabetic 5.7 to 6.4% Non-diabetic < or = 5.6% Glycemic Targets for Type I and Type II Diabetics: Non- Adults <7.0% Adults <6.0% Children and Adolescents <7.5% Source: [place] [employer]. Standards of medical care in diabetes,2017. Diabetes Care.2017:40 (suppl 1):S1-S135. us Dorcas Hennessy MD LAB BLOOD ORDERABLES Final Resul t Performing Organization Address [facility]/ZIP Co de Phone Number [facility] [address] [place] [address] * Phosphorus (07/09/2025 4:57 AM EDT) Phosphorus, Plasma 4.1 2.5 - 4.5 mg/dL 07/09/2025 5:35 AM EDT [facility] Blood Arterial blood specimen / Unknown Venipuncture / Unknown 07/09/2025 4:57 AM EDT 07/09/2025 5:06 AM EDT us Luanne Crawford MD LAB BLOOD ORDERABLES Final Result Performing Organization Address City/[facility]/ZIP Co de Phone Number [facility] [address] [place] [address] * Magnesium, Plasma (07/09/2025 4:57 AM EDT) Magnesium, Plasma 2.2 1.9 - 2.4 mg/dL 07/09/2025 5:35 AM EDT [facility] Blood Arterial blood specimen / Unknown Venipuncture / Unknown 07/09/2025 4:57 AM EDT 07/09/2025 5:06 AM EDT us Luanne Crawford MD LAB BLOOD ORDERABLES Final Result [facility] [address] [place] [address] * (ABNORMAL) Basic Metabolic Panel, Plasma (07/09/2025 4:57 AM EDT) Glucose, Plasma 235(H) 74 - 99 mg/dL 07/09/2025 5:35 AM EDT [facility] BUN, Plasma 30(H) 7 - 21 mg/dL 07/09/2025 5:35 AM EDT [facility] Creatinine, Plasma 1.58(H) 0.60 - 1.10 mg/dL 07/09/2025 5:35 AM EDT [facility] BUN/Creatinine Ratio 19 07/09/2025 5:35 AM EDT [facility] Sodium, Plasma 136 136 - 145 mmol/L 07/09/2025 5:35 AM EDT [facility] Potassium, Plasma 3.5(L) 3.6 - 4.9 mmol/L 07/09/2025 5:35 AM EDT [facility] Chloride, Plasma 101 97 - 107 mmol/L 07/09/2025 5:35 AM EDT [facility] CO2, Plasma 23 22 - 29 mmol/L 07/09/2025 5:35 AM EDT [facility] Anion Gap 12 6 - 16 mmol/L 07/09/2025 5:35 AM EDT [facility] Total Calcium, Plasma 9.2 8.9 - 10.2 mg/dL 07/09/2025 5:35 AM EDT [facility] eGFRcr 40.0 mL/min/1.7 3m*2 07/09/2025 5:35 AM EDT [facility] Comment:Reported eGFRcr in m L/min/1.73m2 is based the CKD-EPI 2020 equation that does not use a race coefficient. Blood Arterial blood specimen / Unknown Venipuncture / Unknown 07/09/2025 4:57 AM EDT 07/09/2025 5:06 AM EDT us Luanne Crawford MD LAB BLOOD ORDERABLES Final Result [facility] [address] [place] [address] * (ABNORMAL) CBC W/O Differential (07/09/2025 4:57 AM EDT) WBC Count 32.25(H) 3.70 - 10.30 10*3/uL LAB HEMATOLOGY METHOD 07/09/2025 5:15 AM EDT [facility] RBC Count 3.89(L) 3.90 - 5.20 10*6/uL LAB HEMATOLOGY METHOD 07/09/2025 5:15 AM EDT [facility] HGB 11.0(L) 11.2 - 15.7 g/dL LAB HEMATOLOGY METHOD 07/09/2025 5:15 AM EDT [facility] HCT 33.4(L) 34.0 - 45.0 % LAB HEMATOLOGY METHOD 07/09/2025 5:15 AM EDT [facility] Platelet Count 358 155 - 369 10*3/uL LAB HEMATOLOGY METHOD 07/09/2025 5:15 AM EDT [facility] MCV 86 79 - 98 fL LAB HEMATOLOGY METHOD 07/09/2025 5:15 AM EDT [facility] MCH 28.3 26.0 - 32.0 pg LAB HEMATOLOGY METHOD 07/09/2025 5:15 AM EDT [facility] MCHC 32.9 30.7 - 35.5 g/dL LAB HEMATOLOGY METHOD 07/09/2025 5:15 AM EDT [facility] RDW 17.4(H) 11.5 - 14.5 % LAB HEMATOLOGY METHOD 07/09/2025 5:15 AM EDT [facility] MPV 10.0 8.8 - 12.5 fL LAB HEMATOLOGY METHOD 07/09/2025 5:15 AM EDT [facility] nRBC 0.0 <=0.0 per 100 WBCs LAB HEMATOLOGY METHOD 07/09/2025 5:15 AM EDT [facility] Blood Arterial blood specimen / Unknown Venipuncture / Unknown 07/09/2025 4:57 AM EDT 07/09/2025 5:07 AM EDT us Luanne Crawford MD LAB BLOOD ORDERABLES Final Result Performing Organization Address City/[facility]/ZIP Co de Phone Number [facility] [address] [place] [address] * (ABNORMAL) POCT glucose meter (07/09/2025 4:03 AM EDT) [facility] Signature POCT Glucose 232(H) 74 - 99 mg/dL [...] Comment 07/09/2025 4:05 AM EDT HEALTHCARE LAB Counseling Aide ID Cheyanne Briceño 07/09/2025 4:05 AM EDT HEALTHCARE LAB Device ID [id number] 07/09/2025 4:05 AM EDT [facility]ALTHCARE LAB Specimen Type POC Arterial 07/09/2025 4:05 AM EDT [facility] Blood Arterial blood specimen / Unknown 07/09/2025 4:03 AM EDT 07/09/2025 4:05 AM EDT us Luanne Crawford MD LAB POINT OF CARE TEST DOCKED DEVICE UNSOLICITED RESULTS Final Result Performing Organization Address City/[facility] Co de Phone Number [facility] [address] [place] [address] * XR Chest 1 View (07/09/2025 3:42 [...] - 99 mg/dL 07/09/2025 2:17 AM EDT [facility] Comment:Accuracy of a glucos e result [...] Comment 07/09/2025 2:17 AM EDT [facility]ARE LAB Counseling Aide ID Cheyanne Briceño 07/09/2025 2:17 AM EDT HEALTHCARE LAB Device ID [id number] 07/09/2025 2:17 AM EDT [facility]ARE LAB Specimen Type POC Arterial 07/09/2025 2:17 AM EDT [facility] Blood Arterial blood specimen / Unknown 07/09/2025 2:15 AM EDT 07/09/2025 2:17 AM EDT us Luanne Crawford MD LAB POINT OF CARE TEST DOCKED DEVICE UNSOLICITED RESULTS Final Result [facility] [address] [place] [address] * (ABNORMAL) Blood gas panel, arterial (07/09/2025 2:11 AM EDT) pH, Arterial 7.25(LL) 7.35 - 7.45 LAB HEMATOLOGY METHOD 07/09/2025 2:23 AM EDT [facility] pCO2, Arterial 56(H) 35 - 48 mmHg LAB HEMATOLOGY METHOD 07/09/2025 2:23 AM EDT [facility] pO2, Arterial 67(L) 83 - 108 mmHg LAB HEMATOLOGY METHOD 07/09/2025 2:23 AM EDT [facility] SO2, Measured, Arterial 91(L) 94 - 98 % LAB HEMATOLOGY METHOD 07/09/2025 2:23 AM EDT [facility] Base Excess, Arterial -2.7(L) -2.0 - 3.0 mmol/L LAB HEMATOLOGY METHOD 07/09/2025 2:23 AM EDT [facility] Bicarbonate, Calculated, Arterial 25 22 - 26 mmol/L LAB HEMATOLOGY METHOD 07/09/2025 2:23 AM EDT [facility] Hematocrit, Whole Blood 31.5(L) 34.0 - 45.0 % LAB HEMATOLOGY METHOD 07/09/2025 2:23 AM EDT [facility] Sodium, Whole Blood 135(L) 136 - 145 mmol/L LAB HEMATOLOGY METHOD 07/09/2025 2:23 AM EDT [facility] Potassium, Whole Blood 3.5(L) 3.6 - 4.9 mmol/L LAB HEMATOLOGY METHOD 07/09/2025 2:23 AM EDT [facility] Chloride, Whole Blood 103 97 - 107 mmol/L LAB HEMATOLOGY METHOD 07/09/2025 2:23 AM EDT [facility] Glucose, Whole Blood 279(H) 74 - 99 mg/dL LAB HEMATOLOGY METHOD 07/09/2025 2:23 AM EDT [facility] Ionized Calcium, Whole Blood 4.9 4.6 - 5.1 mg/dL LAB HEMATOLOGY METHOD 07/09/2025 2:23 AM EDT [facility] Lactate, Arterial, Whole Blood 1.2 0.5 - 1.6 mmol/L LAB HEMATOLOGY METHOD 07/09/2025 2:23 AM EDT [facility] Blood Arterial blood specimen / Unknown Arterial Puncture / Unknown 07/09/2025 2:11 AM EDT 07/09/2025 2:21 AM EDT us Luanne Crawford MD LAB BLOOD ORDERABLES Final Result [facility] [address] [place] [address] * (ABNORMAL) POCT glucose meter (07/09/2025 1:22 AM EDT) POCT Glucose 271(H) 74 - 99 mg/dL 07/09/2025 1:24 AM EDT [facility] Comment:Accuracy of a glucos [...] Comment 07/09/2025 1:24 AM EDT HEALTHCARE LAB Counseling Aide ID Cheyanne Briceño 07/09/2025 1:24 AM EDT [facility] Device ID [id number] 07/09/2025 1:24 AM EDT HEALTHCARE LAB Specimen Type POC Arterial 07/09/2025 1:24 AM EDT [facility] Blood Arterial blood specimen / Unknown 07/09/2025 1:22 AM EDT 07/09/2025 1:24 AM EDT Luanne Crawford MD LAB POINT OF CARE TEST DOCKED DEVICE UNSOLICITED RESULTS Final Result Performing Organization Address City/[facility]/ZIP Co de Phone Number [facility] [address] [place] [address] * (ABNORMAL) POCT glucose meter (07/09/2025 12:06 AM EDT) POCT Glucose 311(H) 74 - 99 mg/dL [...] Comment 07/09/2025 12:08 AM EDT [facility]ARE [facility] Counseling Aide ID Cheyanne Briceño 07/09/2025 12:08 AM EDT HEALTHCARE LAB Device ID [id number] 07/09/2025 12:08 AM EDT [facility] Specimen Type POC Arterial 07/09/2025 12:08 AM EDT [facility] Blood Arterial blood specimen / Unknown 07/09/2025 12:06 AM EDT 07/09/2025 12:08 AM EDT us Luanne Crawford MD LAB POINT OF CARE TEST DOCKED DEVICE UNSOLICITED RESULTS Final Result Performing Organization Address City/[facility]/ZIP Co de Phone Number HEALTHCARE LAB [address] [place] [address] * APTT (07/08/2025 11:53 PM EDT) aPTT 25 25 - 35 sec LAB COAGULATION METHOD 07/09/2025 12:32 AM EDT [facility] Blood Venous blood specimen / Unknown Venipuncture / Unknown 07/08/2025 11:53 PM EDT 07/08/2025 11:59 PM EDT us Luanne Crawford MD LAB BLOOD ORDERABLES Final Result Performing Organization Address [facility]/[place] [address] * (ABNORMAL) Protime-INR (07/08/2025 11:53 PM EDT) Prothrombin Time 15.2(H) 12.0 - 14.3 sec LAB COAGULATION METHOD 07/09/2025 12:32 AM EDT [facility] INR 1.2(H) 0.9 - 1.1 LAB COAGULATION METHOD 07/09/2025 12:32 AM EDT [facility] Blood Venous blood specimen / Unknown Venipuncture / Unknown 07/08/2025 11:53 PM EDT 07/08/2025 11:59 PM EDT Narrative [facility] - 07/09/2025 12:32 AM EDT OPTIMAL INR RANGES FOR PATIENT ON ORAL ANTICOAGULANT THERAPY Prevention of venous thromboembolism INR 2.0 to 3.0 In patients with heart disease: Atrial fibrillation INR 2.0 to 3.0 Valvular heart disease INR 2.0 to 3.0 Tissue heart valves INR 2.0 to 3.0 Mechanical prosthetic valves INR 2.5 to 3.5 Prevention of recurrent CO INR 2.5 to 3.5 us Luanne Crawford MD LAB BLOOD ORDERABLES Final Result Performing Organization Address [facility]/ZIP Co de Phone Number [facility] [address] [place] [address] * Phosphorus, Plasma (07/08/2025 11:52 PM EDT) Phosphorus, Plasma 3.6 2.5 - 4.5 mg/dL 07/09/2025 12:27 AM EDT [facility] Blood Venous blood specimen / Unknown Venipuncture / Unknown 07/08/2025 11:52 PM EDT 07/08/2025 11:59 PM EDT us Luanne Crawford MD LAB BLOOD ORDERABLES Final Result [facility] [address] [place] [address] * (ABNORMAL) Magnesium, Plasma (07/08/2025 11:52 PM EDT) Magnesium, Plasma 1.8(L) 1.9 - 2.4 mg/dL 07/09/2025 12:27 AM EDT [facility] Blood Venous blood specimen / Unknown Venipuncture / Unknown 07/08/2025 11:52 PM EDT 07/08/2025 11:59 PM EDT us Luanne Crawford MD LAB BLOOD ORDERABLES Final Result Performing Organization Address City/[facility]/ZIP Co de Phone Number [facility] [address] [place] [address] * (ABNORMAL) Basic Metabolic Panel, Plasma (07/08/2025 11:52 PM EDT) Glucose, Plasma 314(H) 74 - 99 mg/dL 07/09/2025 12:27 AM EDT [facility] BUN, Plasma 32(H) 7 - 21 mg/dL 07/09/2025 12:27 AM EDT [facility] Creatinine, Plasma 1.80(H) 0.60 - 1.10 mg/dL 07/09/2025 12:27 AM EDT [facility] BUN/Creatinine Ratio 18 07/09/2025 12:27 AM EDT [facility] Sodium, Plasma 136 136 - 145 mmol/L 07/09/2025 12:27 AM EDT [facility] Potassium, Plasma 3.6 3.6 - 4.9 mmol/L 07/09/2025 12:27 AM EDT [facility] Chloride, Plasma 100 97 - 107 mmol/L 07/09/2025 12:27 AM EDT [facility] CO2, Plasma 23 22 - 29 mmol/L 07/09/2025 12:27 AM EDT [facility] Anion Gap 13 6 - 16 mmol/L 07/09/2025 12:27 AM EDT [facility] Total Calcium, Plasma 8.9 8.9 - 10.2 mg/dL 07/09/2025 12:27 AM EDT [facility] eGFRcr 34.2 mL/min/1.7 3m*2 07/09/2025 12:27 AM EDT [facility] Comment:Reported eGFRcr in m L/min/1.73m2 is based the CKD-EPI 2020 equation that does not use a race coefficient. Blood Venous blood specimen / Unknown Venipuncture / Unknown 07/08/2025 11:52 PM EDT 07/08/2025 11:59 PM EDT us Luanne Crawford MD LAB BLOOD ORDERABLES Final Result [facility] [address] [place] [address] * (ABNORMAL) CBC W/O Differential (07/08/2025 11:52 PM EDT) WBC Count 22.50(H) 3.70 - 10.30 10*3/uL LAB HEMATOLOGY METHOD 07/09/2025 12:16 AM EDT [facility] RBC Count 3.60(L) 3.90 - 5.20 10*6/uL LAB HEMATOLOGY METHOD 07/09/2025 12:16 AM EDT [facility] HGB 10.0(L) 11.2 - 15.7 g/dL LAB HEMATOLOGY METHOD 07/09/2025 12:16 AM EDT [facility] HCT 30.8(L) 34.0 - 45.0 % LAB HEMATOLOGY METHOD 07/09/2025 12:16 AM EDT [facility] Platelet Count 273 155 - 369 10*3/uL LAB HEMATOLOGY METHOD 07/09/2025 12:16 AM EDT [facility] MCV 86 79 - 98 fL LAB HEMATOLOGY METHOD 07/09/2025 12:16 AM EDT [facility] MCH 27.8 26.0 - 32.0 pg LAB HEMATOLOGY METHOD 07/09/2025 12:16 AM EDT [facility] MCHC 32.5 30.7 - 35.5 g/dL LAB HEMATOLOGY METHOD 07/09/2025 12:16 AM EDT [facility] RDW 16.9(H) 11.5 - 14.5 % LAB HEMATOLOGY METHOD 07/09/2025 12:16 AM EDT [facility] MPV 10.3 8.8 - 12.5 fL LAB HEMATOLOGY METHOD 07/09/2025 12:16 AM EDT [facility] nRBC 0.0 <=0.0 per 100 WBCs LAB HEMATOLOGY METHOD 07/09/2025 12:16 AM EDT [facility] Blood Venous blood specimen / Unknown Venipuncture / Unknown 07/08/2025 11:52 PM EDT 07/08/2025 11:59 PM EDT us Luanne Crawford MD LAB BLOOD ORDERABLES Final Result Performing Organization Address City/[facility] Co de Phone Number [facility] [address] [place] [address] * Richie auris Surveillance by PCR (07/08/2025 11:50 PM EDT) Richie auris PCR Result Not Detected Not Detected 07/09/2025 11:26 AM EDT [facility] Swab (Axilla and Groin) Non-blood Collection / Unknown 07/08/2025 11:50 PM EDT 07/09/2025 12:17 AM EDT Narrative [facility] - 07/09/2025 11:26 AM EDT This PCR assay was developed and its performance characteristics determined by [facility] as appropriate for clinical purposes. This assay has not been cleared or approved by the FDA, but is performed in a CLIA regulated laboratory that is qualified to perform high-complexity testing. us Luanne Crawford MD LAB MICROBIOLOGY - GENERAL ORDERABLES Final Result Performing Organization Address City/[facility]/ZIP Co de Phone Number [facility] [address] [place] [address] * Multi Drug Resistance Test (07/08/2025 11:50 PM EDT) Culture No growth at day 1 07/10/2025 5:45 AM EDT [facility] Swab (Nares and Leann Rectal) Non-blood Collection / Unknown 07/08/2025 11:50 PM EDT 07/09/2025 12:17 AM EDT Narrative [facility] - 07/10/2025 5:45 AM EDT This test was developed and its performance characteristics determined by the [facility]. Although the media is FDA-approved, it is not FDA-approved for all specimen types submitted. The FDA has determined that such clearance or approval is not necessary. This test is used for surveillance purposes. It should not be regarded as investigational or for research. The [facility] is certified under the Clinical Laboratory Improvement Amendments of 1988 (CLIA-88) as qualified to perform high complexity clinical laboratory testing. us Luanne Crawford MD LAB MICROBIOLOGY - GENERAL ORDERABLES Final Result [facility] [address] [place] [address] * (ABNORMAL) Blood gas, arterial (07/08/2025 11:50 PM EDT) pH, Arterial 7.27(L) 7.35 - 7.45 LAB HEMATOLOGY METHOD 07/09/2025 12:00 AM EDT [facility] pCO2, Arterial 53(H) 35 - 48 mmHg LAB HEMATOLOGY METHOD 07/09/2025 12:00 AM EDT [facility] pO2, Arterial 114(H) 83 - 108 mmHg LAB HEMATOLOGY METHOD 07/09/2025 12:00 AM EDT [facility] SO2, Measured, Arterial 99(H) 94 - 98 % LAB HEMATOLOGY METHOD 07/09/2025 12:00 AM EDT [facility] Base Excess, Arterial -3.1(L) -2.0 - 3.0 mmol/L LAB HEMATOLOGY METHOD 07/09/2025 12:00 AM EDT [facility] Bicarbonate, Calculated, Arterial 24 22 - 26 mmol/L LAB HEMATOLOGY METHOD 07/09/2025 12:00 AM EDT [facility] Hematocrit, Whole Blood 31.0(L) 34.0 - 45.0 % LAB HEMATOLOGY METHOD 07/09/2025 12:00 AM EDT [facility] Sodium, Whole Blood 134(L) 136 - 145 mmol/L LAB HEMATOLOGY METHOD 07/09/2025 12:00 AM EDT [facility] Potassium, Whole Blood 3.5(L) 3.6 - 4.9 mmol/L LAB HEMATOLOGY METHOD 07/09/2025 12:00 AM EDT [facility] Chloride, Whole Blood 101 97 - 107 mmol/L LAB HEMATOLOGY METHOD 07/09/2025 12:00 AM EDT [facility] Glucose, Whole Blood 315(H) 74 - 99 mg/dL LAB HEMATOLOGY METHOD 07/09/2025 12:00 AM EDT [facility] Ionized Calcium, Whole Blood 5.1 4.6 - 5.1 mg/dL LAB HEMATOLOGY METHOD 07/09/2025 12:00 AM EDT [facility] Lactate, Arterial, Whole Blood 1.7(H) 0.5 - 1.6 mmol/L LAB HEMATOLOGY METHOD 07/09/2025 12:00 AM EDT [facility] Blood Arterial blood specimen / Unknown Arterial Puncture / Unknown 07/08/2025 11:50 PM EDT 07/08/2025 11:59 PM EDT us Richard Betts [facility] LAB BLOOD ORDERABLES Sarah bennett Result [facility] [address] [place] [address] * (ABNORMAL) POCT glucose meter (07/08/2025 11:49 [...] Comment 07/08/2025 11:50 PM EDT [facility]ALTH[facility]ARE [facility] Counseling Aide ID Mary Cotto 07/08/2025 11:50 PM EDT [facility] Device ID [id number] 07/08/2025 11:50 PM EDT [facility] Specimen Type POC Arterial 07/08/2025 11:50 PM EDT [facility] Blood Arterial blood specimen / Unknown 07/08/2025 11:49 PM EDT 07/08/2025 11:50 PM EDT us Luanne Crawford MD LAB POINT OF CARE TEST DOCKED DEVICE UNSOLICITED RESULTS Final Result [facility] [address] [place] [address] * (ABNORMAL) Tissue Culture and Gram Stain (07/08/2025 10:48 PM EDT) Culture Light Growth 07/13/2025 1:13 PM EDT [facility] Culture 1+ Schaalia turicensis (formerly known as Actinomyces turicensis)(A) 07/13/2025 1:13 PM EDT [facility] Comment: The organism value for this result has been updated. These results have been appended to the previously preliminary verified report. This is a corrected result. Previous organism was Gram positive anthony on 07/11/2025 at 1052 EDT. Culture 1+ Staphylococcus hominis(A) 07/13/2025 1:13 PM EDT [facility] Comment: This isolate has been identified using the FDA Approved [employer] System The organism value for this result has been updated. These results have been appended to the previously preliminary verified report. Gram Stain Result Few Polymorphonuclear leukocytes(A) 07/13/2025 1:13 PM EDT [facility] Gram Stain Result Numerous Gram negative rods(A) 07/13/2025 1:13 PM EDT [facility] Gram Stain Result Few Gram positive cocci in pairs(A) 07/13/2025 1:13 PM EDT [facility] Tissue Topography unknown / Unknown 07/08/2025 10:48 PM EDT 07/09/2025 12:14 AM EDT Comment:Pre-op diagnosis: Necrotizing fasciitis (CMS/HCC) [M72.6] us Luanne Crawford MD LAB MICROBIOLOGY - GENERAL ORDERABLES Final Result [facility] [address] [place] [address] * Transfuse fresh frozen plasma (07/08/2025 10:35 PM EDT) Richard N Roxane RENDERER BLOOD TRANSFUSION ORDERAB LES Final Result * Transfuse RBC (07/08/2025 10:29 PM EDT) Richard Betts RENDERER BLOOD TRANSFUSION ORDERAB LES Final Result * (ABNORMAL) Blood gas panel, arterial (07/08/2025 10:08 PM EDT) pH, Arterial 7.28(L) 7.35 - 7.45 LAB HEMATOLOGY METHOD 07/08/2025 10:15 PM EDT [facility] pCO2, Arterial 50(H) 35 - 48 mmHg LAB HEMATOLOGY METHOD 07/08/2025 10:15 PM EDT [facility] pO2, Arterial 121(H) 83 - 108 mmHg LAB HEMATOLOGY METHOD 07/08/2025 10:15 PM EDT [facility] SO2, Measured, Arterial 99(H) 94 - 98 % LAB HEMATOLOGY METHOD 07/08/2025 10:15 PM EDT [facility] Base Excess, Arterial -3.6(L) -2.0 - 3.0 mmol/L LAB HEMATOLOGY METHOD 07/08/2025 10:15 PM EDT [facility] Bicarbonate, Calculated, Arterial 23 22 - 26 mmol/L LAB HEMATOLOGY METHOD 07/08/2025 10:15 PM EDT [facility] Hematocrit, Whole Blood 29.9(L) 34.0 - 45.0 % LAB HEMATOLOGY METHOD 07/08/2025 10:15 PM EDT [facility] Sodium, Whole Blood 133(L) 136 - 145 mmol/L LAB HEMATOLOGY METHOD 07/08/2025 10:15 PM EDT [facility] Potassium, Whole Blood 3.5(L) 3.6 - 4.9 mmol/L LAB HEMATOLOGY METHOD 07/08/2025 10:15 PM EDT [facility] Chloride, Whole Blood 101 97 - 107 mmol/L LAB HEMATOLOGY METHOD 07/08/2025 10:15 PM EDT [facility] Glucose, Whole Blood 351(H) 74 - 99 mg/dL LAB HEMATOLOGY METHOD 07/08/2025 10:15 PM EDT [facility] Ionized Calcium, Whole Blood 4.5(L) 4.6 - 5.1 mg/dL LAB HEMATOLOGY METHOD 07/08/2025 10:15 PM EDT [facility] Lactate, Arterial, Whole Blood 2.1(H) 0.5 - 1.6 mmol/L LAB HEMATOLOGY METHOD 07/08/2025 10:15 PM EDT [facility] Blood Arterial blood specimen / Unknown 07/08/2025 10:08 PM EDT 07/08/2025 10:14 PM EDT Comment:Pre-op diagnosis: Necrotizing fasciitis (CMS/HCC) [M72.6] us Luanne Crawford MD LAB BLOOD ORDERABLES Final Result [facility] [address] [place] [address] * Surgical Pathology Exam (07/08/2025 10:07 PM EDT) Case Report Surgical Pathology Case: [id number] Authorizing Provider: Luanne Crawford MD Collected: 07/08/20252206 Ordering Location: [facility] Received: 07/09/2025 0740 Pathologist: Boaz Fernandez MD Specimens: A) - Other (specify site), saphenous vein B) - Other (specify site), right leg 07/10/2025 3:45 PM EDT [facility] Final Diagnosis A. SAPHENOUS VEIN SEGMENT, REMOVAL: - SCLEROTIC VEIN WITH ADVENTITIAL INFLAMMATION. B. RIGHT LEG TISSUE DEBRIDEMENT: - ACUTE NECROTIZING FASCIITIS OF SKIN AND SOFT TISSUE. 07/10/2025 3:45 PM EDT [facility] at 1545 EDT Clinical Information Necrotizing fasciitis; post recent boil self popped wound. 50 y.o. female with PMH of DM, hidradenitis supparativa, current smoker (1.5 ppd), UTI, depression, anxiety, asthma, HLD, Celiac disease, 07/10/2025 3:45 PM EDT [facility] Gross Description A. SAPHENOUS VEIN Specimen is received fresh and placed in formalin labeled saphenous vein. Received is a segment of vessel that measures 8.5 cm in length and up to 0.7 cm in diameter. Specimen is sectioned to reveal a pinpoint lumen with dried blood. Hvac Specialist sections are taken and submitted in cassette A1. Cold Time: 8h 56m Abhishek Baptiste MD B. RIGHT LEG Specimen is received fresh labeled right leg. Received are numerous fragments of skin and underlying soft tissue that measure in aggregate 25.0 x 25.0 x 7.5 cm. Scattered areas of skin and soft tissue notable for being green-black, foul-smelling and extensively necrotic. Hvac Specialist sections are taken and submitted in cassettes B1-B2. Abhishek Baptiste MD 07/10/2025 3:45 PM EDT [facility] Note: A resident was involved in the service. I attest I examined the relevant preparations for the specimens and confirmed the diagnosis or interpretation. 07/10/2025 3:45 PM EDT [facility] Tissue Topography unknown / Unknown 07/08/2025 10:07 PM EDT 07/09/2025 7:40 AM EDT Comment:Pre-op diagnosis: Necrotizing fasciitis (CMS/HCC) [M72.6] Tissue specimen (specimen) Topography unknown / Unknown 07/08/2025 10:49 PM EDT 07/09/2025 7:40 AM EDT Comment:Pre-op diagnosis: Necrotizing fasciitis (CMS/HCC) [M72.6] Luanne Crawford MD LAB PATHOLOGY ORDERABLES F inal Result [facility] [address] [place] [address] * Transfuse fresh frozen plasma (07/08/2025 10:04 PM EDT) Richard Betts CRNA BLOOD TRANSFUSION ORDERAB LES Final Result * Transfuse fresh frozen plasma: 1 Units (07/08/2025 10:04 PM EDT) Richard Betts CRNA BLOOD TRANSFUSION ORDERAB LES Final Result * Transfuse RBC (07/08/2025 9:41 PM EDT) Richardfeliciano Betts CRNA BLOOD TRANSFUSION ORDERAB LES Final Result * Transfuse RBC: 1 Units (07/08/2025 9:41 PM EDT) Richard Gonzalez Roxane RENDERER BLOOD TRANSFUSION ORDERAB LES Final Result * Prepare Fresh Frozen Plasma: 2 Units (07/08/2025 9:24 PM EDT) Product Code Y1458D76 [facility] BLOO D BANK Dispense Status Transfused CH BLOOD BANK Blood Expiration Date [id number] BLOOD BANK Unit Number [id number] CH B LOOD BANK Product Blood Type 5100 CH BLOOD BANK Blood Type O+ CH BLOOD BANK Product Code [id number] CH BLOO D BANK Dispense Status Transfused CH BLOOD BANK Blood Expiration Date [id number] BLOOD BANK Unit Number [id number] CH B LOOD BANK Product Blood Type 5100 BLOOD BANK Blood Type O+ CH BLOOD BANK Blood Venous blood specimen / Unknown Richard Gonzalez Roxane MALIK BLOOD BANK PRODUCT ORDERA BLES Final Result Performing Organization Address City/State/[facility] Co de Phone Number BLOOD BANK [address] [place] [address], * Prepare Leukocyte Reduced RBC: 2 Units (07/08/2025 9:23 PM EDT) Product Code [id number] CH BLOO D BANK Dispense Status Transfused BLOOD BANK Blood Expiration Date [id number] BLOOD BANK Unit Number [id number] CH B LOOD BANK Product Blood Type 5100 BLOOD BANK Blood Type O+ CH BLOOD BANK Crossmatch Compatible BLOOD BANK Product Code [id number] CH BLOO D BANK Dispense Status Transfused CH BLOOD BANK Blood Expiration Date [id number] BLOOD BANK Unit Number [id number] CH B LOOD BANK Product Blood Type 5100 BLOOD BANK Blood Type O+ CH BLOOD BANK Crossmatch Compatible BLOOD BANK Other Richard Betts CRNA BLOOD BANK PRODUCT ORDERA BLES Final Result BLOOD BANK [address] [place] [address], * (ABNORMAL) Abscess Culture and Gram Stain (07/08/2025 9:06 PM EDT) Culture Light Growth 07/13/2025 1:13 PM EDT [facility] Culture 1+ Mixed skin silvestre(A) 07/13/2025 1:13 PM EDT [facility] Comment: The organism value for [...] as Actinomyces turicensis)(A) 07/13/2025 1:13 PM EDT [facility] Comment: This result was determined by MALDI tof Mass spectrometry. This assay was developed and its performance characteristics determined by [facility] as appropriate for clinical [...] Gram positive cocci(A) 07/13/2025 1:13 PM EDT [facility] Gram Stain Result Few Gram variable rods(A) 07/13/2025 1:13 PM EDT [facility] Gram Stain Result Moderate Gram positive rods(A) 07/13/2025 1:13 PM EDT [facility] Gram Stain Result Numerous Gram negative rods(A) 07/13/2025 1:13 PM EDT [facility] Gram Stain Result Numerous Gram negative coccobacilli(A) 07/13/2025 1:13 PM EDT [facility] Gram Stain Result Moderate Polymorphonuclear leukocytes(A) 07/13/2025 1:13 PM EDT [facility] Swab Topography unknown / Unknown 07/08/2025 9:06 PM EDT 07/08/2025 9:15 PM EDT Comment:Pre-op diagnosis: Necrotizing fasciitis (CMS/HCC) [M72.6] us Luanne Crawford MD LAB MICROBIOLOGY - GENERAL ORDERABLES Final Result [facility] [address] [place] [address] * (ABNORMAL) POCT arterial blood gas gem (07/08/2025 8:51 PM EDT) pH, Arterial 7.28(L) 7.35 - 7.45 07/08/2025 8:53 PM EDT [facility] pCO2, Arterial 53(H) 35 - 48 mm Hg 07/08/2025 8:53 PM EDT [facility] pO2, Arterial 152(H) 83 - 108 mm Hg 07/08/2025 8:53 PM EDT [facility] SO2, Arterial 99(H) 94 - 98 % 07/08/2025 8:53 PM EDT [facility] Base Excess, Arterial -2.3(L) -2 - 3 mmol/L 07/08/2025 8:53 PM EDT [facility] HCO3, Arterial 24.9 22 - 26 mmol/L 07/08/2025 8:53 PM EDT [facility] Total Hemoglobin, Arterial, Whole Blood 10.9(L) 11.2 - 15.7 g/dL 07/08/2025 8:53 PM EDT [facility] Hematocrit, Arterial 33.0(L) 34.0 - 45.0 % 07/08/2025 8:53 PM EDT [facility] Sodium, Arterial 131(L) 136 - 145 mmol/L 07/08/2025 8:53 PM EDT [facility] Potassium, Arterial 3.8 3.6 - 4.9 mmol/L 07/08/2025 8:53 PM EDT [facility] Chloride, Whole Blood 98 97 - 107 mmol/L 07/08/2025 8:53 PM EDT [facility] LAB Glucose, Arterial 418(H) 74 - 99 mg/dL 07/08/2025 8:53 PM EDT [facility] Ionized Calcium, Arterial 4.9 4.6 - 5.1 mg/dL 07/08/2025 8:53 PM EDT [facility] Lactate, Arterial 1.6 0.5 - 1.6 mmol/L 07/08/2025 8:53 PM EDT [facility] Body Temperature 37.0 Celsius 07/08/2025 8:53 PM EDT [facility] pH, Temp Corrected, Arterial 7.28(L) 7.35 - 7.45 07/08/2025 8:53 PM EDT [facility] pCO2, Temp Corrected, Arterial 53(H) 35 - 48 mm Hg 07/08/2025 8:53 PM EDT [facility] pO2, Temp Corrected, Arterial 152(H) 83 - 108 mm Hg 07/08/2025 8:53 PM EDT [facility] Counseling Aide ID Yadi Goel 07/08/2025 8:53 PM EDT [facility] Blood, Arterial Whole blood specimen / Unknown 07/08/2025 8:51 PM EDT 07/08/2025 8:53 PM EDT us Luanne Crawford MD LAB POINT OF CARE TEST DOCKED DEVICE UNSOLICITED RESULTS Final Result Performing Organization Address City/[facility] Co de Phone Number [facility] [address] [place] [id number] * ED HIV 1/2 Antibody/Antigen Screen w/Reflex to HIV 1/2 Differentiation (07/08/2025 6:14 PM EDT) HIV 1 & 2 Antibody/Antigen Screen Non Reactive Non Reactive 07/08/2025 7:12 PM EDT [facility] Comment:Screening for HIV 1 & 2 antibodies, and P24 antigen is NONREACTIVE. No confirmatory testing is required. Blood Venous blood specimen / Unknown Venipuncture / Unknown 07/08/2025 6:14 PM EDT 07/08/2025 6:30 PM EDT us My Charles MD LAB BLOOD ORDERABLES Fi nal Result [facility] [address] [place] [address] * Hepatitis C Antibody - ED (07/08/2025 6:14 PM EDT) [facility] Hepatitis C Antibody Negative Negative 07/08/2025 7:12 PM EDT [facility] Blood Venous blood specimen / Unknown Venipuncture / Unknown 07/08/2025 6:14 PM EDT 07/08/2025 6:30 PM EDT My Charles MD LAB BLOOD ORDERABLES Fi nal Result Performing Organization Address City/[facility]/ZIP Co de Phone Number [facility] [address] [place] [address] * (ABNORMAL) C-Reactive protein (07/08/2025 6:14 PM EDT) [facility] CRP, Plasma 462.2(H) <=8.0 mg/L 07/08/2025 7:18 PM EDT [facility] Blood Venous blood specimen / Unknown Venipuncture / Unknown 07/08/2025 6:14 PM EDT 07/08/2025 6:23 PM EDT Narrative [facility] - 07/08/2025 7:18 PM EDT This CRP test is appropriate for assessment of infection, systemic inflammation and/or tissue injury. To assess cardiovascular disease risk order high sensitivity CRP (CRPH). My Charles MD LAB BLOOD ORDERABLES Fi nal Result Performing Organization Address City/[facility]/ZIP Co de Phone Number [facility] [address] [place] [address] * (ABNORMAL) Lactic acid, venous (07/08/2025 6:14 PM EDT) [facility] Lactate, Venous, Whole Blood 2.6(H) 0.5 - 2.2 mmol/L LAB HEMATOLOGY METHOD 07/08/2025 6:29 PM EDT [facility] Blood Venous blood specimen / Unknown Venipuncture / Unknown 07/08/2025 6:14 PM EDT 07/08/2025 6:23 PM EDT My Charles MD LAB BLOOD ORDERABLES Fi nal Result Performing Organization Address City/[facility]/ZIP Co de Phone Number [facility] [address] [place] [address] * Type and screen (07/08/2025 6:14 PM [...] ORD ERABLES Final Result Performing Organization Address [facility]/[place] de Phone Number BLOOD BANK [address] [place] [address] * (ABNORMAL) PT-INR (07/08/2025 6:14 PM EDT) Prothrombin Time 15.3(H) 12.0 - 14.3 sec 07/08/2025 6:56 PM EDT [facility] INR 1.2(H) 0.9 - 1.1 07/08/2025 6:56 PM EDT [facility] Blood Venous blood specimen / Unknown Venipuncture / Unknown 07/08/2025 6:14 PM EDT 07/08/2025 6:23 PM EDT Narrative [facility] - 07/08/2025 6:56 PM EDT OPTIMAL INR RANGES FOR PATIENT ON ORAL ANTICOAGULANT THERAPY Prevention of venous thromboembolism INR 2.0 to 3.0 In patients with heart disease: Atrial fibrillation INR 2.0 to 3.0 Valvular heart disease INR 2.0 to 3.0 Tissue heart valves INR 2.0 to 3.0 Mechanical prosthetic valves INR 2.5 to 3.5 Prevention of recurrent CO INR 2.5 to 3.5 us My Charles MD LAB BLOOD ORDERABLES Fi nal Result [facility] [address] [place] [address] * (ABNORMAL) CBC w/diff (07/08/2025 6:14 PM EDT) WBC Count 26.15(H) 3.70 - 10.30 10*3/uL LAB HEMATOLOGY METHOD 07/08/2025 9:04 PM EDT [facility] RBC Count 3.97 3.90 - 5.20 10*6/uL LAB HEMATOLOGY METHOD 07/08/2025 9:04 PM EDT [facility] HGB 10.9(L) 11.2 - 15.7 g/dL LAB HEMATOLOGY METHOD 07/08/2025 9:04 PM EDT [facility] HCT 33.6(L) 34.0 - 45.0 % LAB HEMATOLOGY METHOD 07/08/2025 9:04 PM EDT [facility] Platelet Count 329 155 - 369 10*3/uL LAB HEMATOLOGY METHOD 07/08/2025 9:04 PM EDT [facility] MCV 85 79 - 98 fL LAB HEMATOLOGY METHOD 07/08/2025 9:04 PM EDT [facility] MCH 27.5 26.0 - 32.0 pg LAB HEMATOLOGY METHOD 07/08/2025 9:04 PM EDT [facility] MCHC 32.4 30.7 - 35.5 g/dL LAB HEMATOLOGY METHOD 07/08/2025 9:04 PM EDT [facility] RDW 17.3(H) 11.5 - 14.5 % LAB HEMATOLOGY METHOD 07/08/2025 9:04 PM EDT [facility] MPV 10.1 8.8 - 12.5 fL LAB HEMATOLOGY METHOD 07/08/2025 9:04 PM EDT [facility] nRBC 0.0 <=0.0 per 100 WBCs LAB HEMATOLOGY METHOD 07/08/2025 9:04 PM EDT [facility] Differential Type Automated LAB HEMATOLOGY METHOD 07/08/2025 9:04 PM EDT [facility] Neutrophils % 91 % LAB HEMATOLOGY METHOD 07/08/2025 9:04 PM EDT [facility] Lymphocytes % 4 % LAB HEMATOLOGY METHOD 07/08/2025 9:04 PM EDT [facility] Monocytes % 4 % LAB HEMATOLOGY METHOD 07/08/2025 9:04 PM EDT [facility] Eosinophils % 0 % LAB HEMATOLOGY METHOD 07/08/2025 9:04 PM EDT [facility] Basophils % 0 % LAB HEMATOLOGY METHOD 07/08/2025 9:04 PM EDT [facility] Immature Granulocytes % 1 % LAB HEMATOLOGY METHOD 07/08/2025 9:04 PM EDT [facility] Neutrophils Absolute 23.61(H) 1.60 - 6.10 10*3/uL LAB HEMATOLOGY METHOD 07/08/2025 9:04 PM EDT [facility] Lymphocytes Absolute 1.15(L) 1.20 - 3.90 10*3/uL LAB HEMATOLOGY METHOD 07/08/2025 9:04 PM EDT [facility] Monocytes Absolute 0.98(H) 0.30 - 0.90 10*3/uL LAB HEMATOLOGY METHOD 07/08/2025 9:04 PM EDT [facility] Eosinophils Absolute 0.04 0.00 - 0.50 10*3/uL LAB HEMATOLOGY METHOD 07/08/2025 9:04 PM EDT [facility] Basophils Absolute 0.09 0.00 - 0.10 10*3/uL LAB HEMATOLOGY METHOD 07/08/2025 9:04 PM EDT [facility] Immature Granulocytes Absolute 0.25(H) 0.00 - 0.06 10*3/uL LAB HEMATOLOGY METHOD 07/08/2025 9:04 PM EDT [facility] Blood Venous blood specimen / Unknown Venipuncture / Unknown 07/08/2025 6:14 PM EDT 07/08/2025 6:23 PM EDT Narrative [facility] - 07/08/2025 9:04 PM EDT Therapeutic decision making should be based on absolute values, rather than percentages. us My Charles MD LAB BLOOD ORDERABLES Fi nal Result [facility] [address] [place] [address] * (ABNORMAL) CMP (07/08/2025 6:14 PM EDT) Glucose, Plasma 411(H) 74 - 99 mg/dL 07/08/2025 7:18 PM EDT [facility] BUN, Plasma 33(H) 7 - 21 mg/dL 07/08/2025 7:18 PM EDT [facility] Creatinine, Plasma 1.99(H) 0.60 - 1.10 mg/dL 07/08/2025 7:18 PM EDT [facility] BUN/Creatinine Ratio 17 07/08/2025 7:18 PM EDT [facility] Sodium, Plasma 131(L) 136 - 145 mmol/L 07/08/2025 7:18 PM EDT [facility] Potassium, Plasma 4.0 3.6 - 4.9 mmol/L 07/08/2025 7:18 PM EDT [facility] Chloride, Plasma 93(L) 97 - 107 mmol/L 07/08/2025 7:18 PM EDT [facility] CO2, Plasma 22 22 - 29 mmol/L 07/08/2025 7:18 PM EDT [facility] Anion Gap 16 6 - 16 mmol/L 07/08/2025 7:18 PM EDT [facility] Total Calcium, Plasma 9.3 8.9 - 10.2 mg/dL 07/08/2025 7:18 PM EDT [facility] Total Protein 6.0(L) 6.3 - 7.9 g/dL 07/08/2025 7:18 PM EDT [facility] Albumin, Plasma 2.6(L) 3.5 - 5.2 g/dL 07/08/2025 7:18 PM EDT [facility] AST, Plasma 16 10 - 35 U/L 07/08/2025 7:18 PM EDT [facility] ALT, Plasma 15 10 - 35 U/L 07/08/2025 7:18 PM EDT [facility] Alkaline Phosphatase, Plasma 165(H) 35 - 104 U/L 07/08/2025 7:18 PM EDT [facility] Total Bilirubin, Plasma 0.4 0.2 - 1.1 mg/dL 07/08/2025 7:18 PM EDT [facility] eGFRcr 30.3 mL/min/1.7 3m*2 07/08/2025 7:18 PM EDT [facility] Comment:Reported eGFRcr in m L/min/1.73m2 is based the CKD-EPI 2020 equation that does not use a race coefficient. Blood Venous blood specimen / Unknown Venipuncture / Unknown 07/08/2025 6:14 PM EDT 07/08/2025 6:23 PM EDT us My Charles MD LAB BLOOD ORDERABLES Fi nal Result [facility] [address] [place] [address] * [facility], E/M 30-74 MINUTES (07/08/2025 5:58 [...] use disorder Acute respiratory failure Septic shock ([facility]) Absence seizure ([facility]) 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 epilepsy Chronic obstructive pulmonary disease, unspecified HTN (hypertension), benign Essential hypertension, benign Depression Depressive disorder, not elsewhere classified Morbid (severe) obesity due to excess calories ([facility]) Urge incontinence HLD (hyperlipidemia) Other and unspecified hyperlipidemia JOSEP (obstructive sleep apnea) Obstructive sleep apnea (adult) (pediatric) Postoperative pain Other acute postoperative pain Hypoxia Hypoxemia documented in this encounter Admitting Diagnoses Diagnosis Necrotizing fasciitis ([facility]) Necrotizing fasciitis documented in this encounter Administered [...] EDT 1,000 mg 400 mL/ hr New 07/09/2025 12:26 AM EDT 1,000 mg 400 [...] Tue07/09/25 at 0130, Routine, Recovery(Phase II-Outpatient)/On Unit(Inpatient) 07/09/2025 2:08 AM EDT 2 g 25 [...] RN)2018 (Given - Provider: Inessa Almazan RN) 0852 [...] RN) 0839 (Given - Provider: Junior Sabrina Satnos) HYDROmorphone (Dilaudid) injection 0.25 mg (COMPLETED) 0.25 mg, Intravenous, Once, 1 dose, On Tue07/19/25 at 0315, Routine 0223 (Given - Provider: Inessa Almazan, NAHID) HYDROmorphone (Dilaudid) injection 0.5 mg (COMPLETED) 0.5 [...] 2234 (Given - Provider: Inessa Almazan RN) 2122 [...] RN - Reason: Order parameters not met) 0300 (Not Given - Provider: Inessa D Nipper, RN - Reason: Order parameters not met) [...] RN) 0852 (Given - Provider: Josi Ann RN)211 (Given - Provider: Inessa Almazan RN) 09 (Not Given - Provider: Kalyn Martell RN - Reason: Patient/family refused) lamoTRIgine (LaMICtal XR) 24 hr tablet 100 mg 100 mg, Oral, Nightly, First dose on Tue07/11/25 at 2000, Until Discontinued, Routine 2018 (Given - Provider: Ienssa Almazan RN) 2122 (Given - Provider: Inessa [...] Oral, 3 times daily, First dose on Tomasa4/25 at 1100, Until Discontinued, Routine 1001 (Given - Provider: Josi Ann RN)1658 (Given - Provider: Josi Ann RN)2018 (Given - Provider: Inessa Almazan RN) 0851 (Given - Provider: Josi Ann RN)1815 (Not Given - Provider: Josi Ann RN [...] Comment: no wv in place due to [facility] dc) polyethylene glycol (Miralax) packet 17 g [...] Discontinued, Routine 2018 (Given - Provider: Inessa Alamzan RN) 2113 (Given - Provider: Inessa Almazan RN) senna-docusate (Leann-Colace) 8.6-50 MG per tablet 1 tablet 1 tablet, Oral, 2 times daily, First dose (after last modification) on Tue07/12/25 at 2100, Until Discontinued, Routine 1002 (Not Given - Provider: Josi Ann RN - Reason: Patient/family refused)2019 (Not Given - Provider: Inessa Almazan RN - Reason: Patient/family refused) 0852 (Not Given - Provider: Josi Ann RN - Reason: Patient/family refused)2114 (Given - Provider: Inessa Almazan RN) 912 (Not Given - Provider: Kalyn Martell RN [...] 15 min PRN, Starting on Tue07/08/25 at 205, Until Tue07/19/25 at 1456, Administer over 15 [...] PRN, Starting on Tue07/11/25 at 0712, Until Tue07/18/25 at 1014, Routine, vomiting, nausea Or ondansetron [...] documented as of this encounter Care Teams Press Tender Smoke Signal Relationship Specialty Start Date End Date Yenny Dhillon APRN [address] [place] [address] PCP - General 07/22/23 documented as of this encounter
--- OUTSIDE RECORDS SUMMARY | 2025-07-08 20:00 | XMS_ITS | Encounter Summary ---
Author Organization Healthcare Address [address] [place] [address] Care Team Providers Care Bird Tender Name Role Phone Yenny Dhillon APRN Primary Care Provider [phone] Reason for Visit * Reason Comments Wound Check * Auth/Cert (Routine) Specialty Diagnoses / Procedures Referred By Bharati wiggins Referred To Contact Diagnoses Necrotizing fasciitis ([facility]/HCC) Necrotizing Fascitis Luanne Crawford MD [address] [address] Phone: tel: fax: PAV A Inpatient [address] [place] [address] Phone: tel: Referral ID Status Reason Start Date Expiration Date Visits Re quested Visits Authorized [id number] 1 1 Encounter Details Date Type Department Care Team (Late st Contact Info) Description 07/08/2025 8:00 PM EDT - 07/08/2025 9:30 PM EDT Surgery [facility] OPERATING ROOM [address] [place] [address] Luanne Crawford MD [address] [address] IRRIGATION AND DEBRIDEMENT, WOUND [[id number] (CPT )] Surgery Details Date/Time Status Location OR Service Patient Class Case Class Case Type Trauma Case? 07/08/2025 8:00 PM Posted [facility] OR 05 General Surgery Inpatient A-Emergen t: to be done within 1 hour Panel 1 Procedure [facility] Anes Op Region Wound Class Comments IRRIGATION AND DEBRIDEMENT, WOUND Right General Surgeon Surgeon Role Service Panel Luanne Crawford MD Primary General Surgery 1 Kristy Fields MD Resident - Assisting 1 documented in this encounter Social History Tobacco Use Types Packs/Day Years [...] Sign Reading Time Taken Comments Blood Pressure 89/64 07/08/2025 7:10 PM EDT Pulse 96 07/08/2025 6:50 PM EDT Temperature 37 C (98.6 F) 07/08/2025 6:04 PM EDT Respiratory Rate 22 07/08/2025 6:50 PM EDT Oxygen Saturation 93% 07/08/2025 6:50 PM EDT Inhaled Oxygen Concentration - - Weight 177 kg (391 lb 1.5 oz) 07/08/2025 6:05 PM EDT Height - - Body Mass Index 51.1 07/09/2025 7:20 PM EDT documented in this encounter Functional Status * Calculated C-SSRS Risk Score (Lifetime/Recent) Answer Date of Assessment Author No Risk Indicated 07/08/2025 6:11 PM EDT Kadi Lam RN * Question Answer Date of Assessment Author 1. Wish to be (Past 1 Month) No 025 6:11 PM EDT Kadi Bustamante, RN 2. Non-Specific Active Suici silvia Thoughts (Past 1 Month) No 07/08/2025 6:11 PM EDT Maryellen Bustamante, RN 6. Suicidal Behavior (Lifetime) No 6:11 PM EDT Kadi Bustamante, RN documented as of this encounter Discharge Instructions * Discharge Instructions* Becky Graff APRN - 07/18/2025 10:08 AM EDT Discharge Instructions: [...] dressing in place, sutures removed on rounds. [facility] can re- apply negative pressurewound therapy: [...] please call our General Surgery Clinic at [phone]. If there are questions or concerns after discharge from the hospital, call Radha Ugalde, Nurse Coordinator between 7am-3pm at [phone]. If it is after hours, weekends, and holidays please call [phone] and ask for the resident bat person for Emergency General Surgery. Medication requests should be made between the hours of 9:00 AM to 3:00 PM Tuesday thru Tuesday. Please note that based upon recent changes to [place] law related to prescribing opioid pain medications, [...] by mouth daily. 30 tablet 3 03/22/2025 5 documented as of this encounter Miscellaneous Notes * Care Plan - Junior Sabrina Santos - 07/19/2025 12:34 PM EDT Problem: Adult Inpatient Plan of Care Goal: Plan of Care Review Outcome: Met Flowsheets Taken 07/18/20252319 by Inessa Almazan, RN Progress: improving Taken 07/18/2025 1633 by Josi Ann RN Plan of Care Reviewed With: patient Goal: Patient-Specific Goal (Individualized) Outcome: Met Flowsheets (Taken 07/19/2025 08) Patient/Family-Specific Goals (Include Timeframe): pt will remain free from falls or injury this shift Individualized Care Needs: safety Anxieties, Fears or Concerns: going to rehab Goal: Absence of Hospital-Acquired Illness or Injury Outcome: Met Intervention: Identify and Manage Fall Risk Flowsheets (Taken 07/19/2025799) Safety Promotion/Fall Prevention: activity supervised assistive device/personal items within reach clutter-free environment maintained fall prevention program maintained lighting adjusted mobility aid in reach nonskid shoes/slippers when out of bed room organization consistent safety round/check completed toileting scheduled Intervention: Prevent Skin Injury Flowsheets Taken 07/19/2025 08 by Junior Sabrina Santos Body Position: weight shifting Taken 07/18/20252319 by Inessa Almazan RN Skin Protection: incontinence pads utilized protective footwear used transparent dressing maintained Intervention: Prevent and Manage VTE (Venous Thromboembolism) Risk Flowsheets (Taken 07/19/2025 08) VTE Prevention/Management: bilateral SCDs (sequential compression devices) off medication Intervention: Prevent Infection Flowsheets (Taken 07/18/2025 1600 by Josi Ann RN) Infection Prevention: hand hygiene promoted rest/sleep promoted Goal: Optimal Comfort and Wellbeing Outcome: Met Intervention: Monitor Pain and Promote Comfort Flowsheets (Taken 07/19/2025 0223 by Inessa Almazan, RN) Pain Management Interventions: [...] Positioning: HOB elevated Taken 07/18/20252319 by Inessa Almazan RN Pressure Reduction Techniques: [...] protective precautions maintained Taken 07/18/20252319 by Inessa Almazan RN Infection Management: aseptic technique maintained Fever Reduction/Comfort Measures: lightweight bedding lightweight clothing Problem: Fall Injury Risk Goal: Absence of Fall and Fall-Related Injury Outcome: Met Intervention: Identify and Manage Contributors Flowsheets (Taken 07/18/20252319 by Inessa Almazan, RN) Medication Review/Management: medications reviewed Self-Care Promotion: independence encouraged Intervention: Promote Injury-Free Environment Flowsheets (Taken 07/19/2025799) Safety Promotion/Fall Prevention: activity supervised assistive device/personal items within reach clutter-free environment maintained fall prevention program maintained lighting adjusted mobility aid in reach nonskid shoes/slippers when out of bed room organization consistent safety round/check completed toileting scheduled Problem: Self-Care Deficit Goal: Improved Ability to Complete Activities of Daily Living Outcome: Met Intervention: Promote Activity and Functional Wayne Flowsheets Taken 07/18/20252319 by Inessa Almazan, RN Self-Care Promotion: independence encouraged Taken 07/18/20251999 by Inessa Almazan RN Activity Assistance Provided: assistance, stand-by Taken 07/14/20252310 by Rita Alejandro, NAHID Adaptive Equipment Use: long-handled shoe horn Problem: Wound Goal: Optimal Coping Outcome: Met Intervention: Support Patient and Family Response Flowsheets (Taken 07/18/2025 1600 by Josi Ann RN) Supportive Measures: active listening utilized self-care encouraged positive reinforcement provided Family/Support System Care: support provided Goal: Optimal Functional Ability Outcome: Met Intervention: Optimize Functional Ability Flowsheets Taken 07/19/2025799 by Junior Sabrina Santos Activity Management: activity adjusted per tolerance activity encouraged Taken 07/18/20251999 by Inessa Almazan, NAHID Activity Assistance Provided: assistance, stand-by Assistive Device [...] Intake Flowsheets Taken 07/18/20252319 by Inessa Almazan, NAHID Oral Nutrition Promotion: calorie-dense foods provided rest periods promoted Nutrition Interventions: frequent small meals provided supplemental drinks provided Taken 07/18/20251599 by Josi Ann, NAHID Nutrition Support Management: weight trending reviewed Goal: Optimal Pain Control and Function Outcome: Met Intervention: Prevent or Manage Pain Flowsheets Taken 07/19/2025222 by Inessa Almazan, tutoring manager Interventions: medication (see MAR) Taken 07/18/2025 1600 by Josi Ann, NAHID Sleep/Rest Enhancement: awakenings minimized consistent schedule promoted Goal: Skin Health and Integrity Outcome: Met Intervention: Optimize Skin Protection Flowsheets Taken 07/19/2025799 by Junior Sabrina Santos Activity Management: activity adjusted per tolerance activity encouraged Head of Bed (HOB) Positioning: HOB elevated Taken 07/18/20252319 by Inessa Almazan, NAHID Pressure Reduction Techniques: pressure points protected Pressure Reduction Devices: positioning supports utilized Taken 07/14/2025 1800 by Josi Ann, NAHID Skin Protection: frequent weight shift encouraged weight shift assistance provided incontinence pads utilized Goal: Optimal Wound Healing Outcome: Met Intervention: Promote Wound Healing Flowsheets (Taken 07/18/2025 1600 by Josi Ann, NAHID) Sleep/Rest Enhancement: awakenings minimized consistent schedule promoted * Progress Notes - Annie Littlejohn - 07/19/2025 9:59 AM EDT Case Management Discharge Note Cristina Brown [address] 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[employer]: Primary Caregiver: Self Assistance Available at Discharge: [...] Community Agency(s): Patient's Choice of Community Agency(s): [facility] Patient/Family Anticipated Services at Transition: Patient/Family Anticipated Services at Transition: rehabilitation services DME/Equipment Needed after Discharge: Equipment Currently Used at Home: none Equipment Needed After Discharge: lilly lundy Readmission Within the Last 30 Days: Readmission Within the Last 30 Days: unable to assess Medicare Documentation: N/A Follow-up: Keaton Patel MD [address] [place] [address] [facility] ([facility]) [address] [phone] Go on 07/19/2025 Discharge Transportation: Transportation Anticipated: [...] arranged for this date at 1400 from [facility]. Annie Littlejohn * Gauri Rico - Raj Cardona, RN - 07/19/2025 9:44 AM EDT Images from the original note were not included. 1087 Oxycodone Oral Tablet, Immediate Release Brand Names: Oxaydo, Roxicodone What is this medicine? Oxycodone (ty-n-TVK-done) is an opioid pain reliever. It is used to treat moderate to severe pain. What should I tell my health care provider before I take this medicine? They need to know if you have any of these conditions: ? Schuyler's disease ? Brain tumor or head injury [...] a special medication guide each time you excelsior picker this medicine. ? Overdosage: Taking too [...] should report to your doctor or health healthcare management as soon as possible: ? allergic reactions [...] attention (report to your doctor or health healthcare management if they continue or are bothersome): ? constipation ? dry mouth ? itching ? nausea, vomiting ? upset stomach This list may not describe all possible side effects. Call your doctor for medical advice about side effects. You may report side effects to FDA at 1-137-PGQ-0830. Where should I keep my medicine? This [...] location. To find a disposal location, visit [facility]/[place]. If you cannot take unused medicine to a proper location, you can mix the medicine with coffee grounds or jose litter and dispose of in the normal trash. Your doctor may also give you a special disposal pouch for this medicine. You can also flush the medicine down the toilet. * Gauri LouieJANETH - Raj Cardona RN - 07/19/2025 9:44 AM EDT Images from the original note were not included. [id number] Naloxone Nasal [place] WHY is this medicine prescribed? Prescription and [...] pharmacist for the instructions or visit the lead consultant's website to get the instructions. You should [...] or doctor for a copy of the lead consultant's information for the patient. Are there OTHER [...] and out of their sight and reach. https://www.[employer]imate.ee.Enjoyor Dispose of unneeded medications in a way [...] of all of the prescription and nonprescription (flhv-clv-pmzoktd) medicines, vitamins, minerals, and dietary supplements you [...] or pharmacist about specific clinical use. The [place] [employer] represents that the information provided hereunder was formulated with a reasonable standard of care, and in conformity with professional standards in the field. The [place] [employer]. makes no representations or warranties, express or implied, including, but not limited to, any implied warranty of merchantability and/or fitness for a particular purpose, with respect to such information and specifically disclaims all such warranties. Users are advised that decisions regarding drug therapy are complex medical decisions requiring the independent, informed decision of an appropriate health healthcare management, and the information is provided for informational purposes only. The entire monograph for a drug should be reviewed for a thorough understanding of the drug's actions, uses and side effects. The [place] [employer] does not endorse or recommend the use of any drug.The information is not a substitute for medical care. AHFS?? Patient Medication Information?. ?? Copyright, 2023. The [place] [employer]-System Pharmacists??, [address], [address], [place], [place]. All Rights Reserved. Duplication for commercial use must be authorized by [facility]. Selected Revisions: May 26, 2024. AHFS?? Patient Medication Information?. ?? Copyright, 2024 * Gauri [facility] - Raj Cardona RN - 07/19/2025 9:44 [...] controlled substances: ? Drug Enforcement Agency (HARIS): http://www.deadiversion.SMRxToBakedCode.gov/drug_disposal/takeback/index.htm ? National Association of Drug Diversion Investigators (NADDI): http://rxdrugdropbox.org/ ? [place] Office of Drug Control Policy: http://odcp.pa.gov/Prescription+Drug+Drop+Box+Sites.htm Are there concerns about or ? ? [...] that tracks prescriptions of controlled substances in [place]. The DANYELLE report tells your doctor if [...] or your doctor may then call the [place] Drug Enforcement and Professional Practices Branch at .This will start an investigation of the error. * Gauri LouieJANETH - Raj Cardona RN - 07/19/2025 9:44 AM EDT Images from the original note were not included. 07100 Insulin: How to Use and Where to [...] ?needles? or ?sharps.? ? Call your local [employer] company to ask about removing the sharps container. You can also check withthe [facility] for Safe Community Needle Disposal at www.safeneedledisposal.org or 246-609-0572. Storing your insulin ? Keep unopened insulin [...] cold. Last Reviewed Date: 2023 00:00:00 ?? 1574-1293 [employer]. All rights reserved. This information is not intended as a substitute for professional medical care. Always follow your healthcare professional's instructions. * Gauri Rico - Raj Cardona RN - 07/19/2025 9:43 AM EDT Images from the original note were not included. [id number] Diet: Diabetes Food is an important tool [...] general guidelines to follow. A registered dietitian (SOCO) will create a tailored diet approach that?s [...] an RD in your area, contact: o Academy of Nutrition and Dietetics at www.eatright.org o [place] Diabetes Association at www.diabetes.org or 489-233-6973 o Association of Diabetes Care and Education Specialists at www.diabeteseducator.org/ Last Reviewed Date: 2024 00:00:00 ?? [employer]. All rights reserved. This information is not intended as a substitute for professional medical care. Always follow your healthcare professional's instructions. * [facility] Raj Cardona RN - 07/19/2025 9:43 AM EDT Images from the original note were not included. [address]4750 Diabetes: Understanding Carbohydrates, Fats, and Protein Food [...] foods. Last Reviewed Date: 2024 00:00:00 ?? 9730-0286 [employer]. All rights reserved. This information is not intended as a substitute for professional medical care. Always follow your healthcare professional's instructions. * Gauri LouieJANETH - Raj Cardona RN - 07/19/2025 9:43 AM EDT Images from the original note were not included. 52536 Discharge Instructions: Packing a Wound You have [...] chills. Last Reviewed Date: 2025 00:00:00 ?? 9351-5781 [employer]. All rights reserved. This information is not intended as a substitute for professional medical care. Always follow your healthcare professional's instructions. * Gauri OnJANETH - Raj Cardona RN - 07/19/2025 9:43 AM EDT Images from the original note were not included. 02460 Negative Pressure Wound Therapy Negative pressure wound [...] device. Last Reviewed Date: 2024 00:00:00 ?? 0499-8225 [employer]. All rights reserved. This information is not intended as a substitute for professional medical care. Always follow your healthcare professional's instructions. * Gauri Rico - Raj Cardona RN - 07/19/2025 9:43 AM EDT Images from the original note were not included. 55722 Discharge Instructions: Changing Your Dressing You are [...] doctor. Last Reviewed Date: 2025 00:00:00 ?? 6293-1807 [employer]. All rights reserved. This information is not intended as a substitute for professional medical care. Always follow your healthcare professional's instructions. * [facility] - Raj Cardona RN - 07/19/2025 9:42 AM EDT Images from the original note were not included. [id number] Abscess (Incision and Drainage) An abscess is [...] treatment. Last Reviewed Date: 2024 00:00:00 ?? 6178-8339 [employer]. All rights reserved. This information is not intended as a substitute for professional medical care. Always follow your healthcare professional's instructions. * Gauri Rico - Raj Cardona RN - 07/19/2025 9:42 AM EDT Images from the original note were not included. 83891 Preventing a Surgical Site Infection A risk [...] of infection. ? Controlled body temperature. A sjnhv-qaua-rwvuat temperature during or after surgery prevents oxygen [...] and water or with an alcohol-based hand director speech and hearing before and after caring for you. Don?t [...] away. Last Reviewed Date: 2024 00:00:00 ?? 7062-4554 [employer]. All rights reserved. This information is not intended as a substitute for professional medical care. Always follow your healthcare professional's instructions. * [facility] - Raj Cardona RN - 07/19/2025 9:42 [...] to the condition itself. It comes from Citizen Of [place] and Latin words for a gnawing sore [...] questions. Last Reviewed Date: 2023 00:00:00 ?? 2692-9329 [employer]. All rights reserved. This information is not intended as a substitute for professional medical care. Always follow your healthcare professional's instructions. * Discharge Summary - Becky Graff APRN - 07/19/2025 9:31 AM EDT Images from the original note were not included. Hospitalization Admit Date/Time: 07/08/2025 5:58 PM Admitting Attending: Luanne Crawford Discharge Date: 07/19/25 Discharge Attending Physician: Anne Franco MD PCP name and Address: Yenny Dhillon, CRYOGENIC TRANSPORT DRIVER [address] [facility] [address] [facility] Referring provider name and address: Keaton Patel MD [address] [place] [address] [place] [facility] Chief Concern, Brief History of Present Illness, and Hospital Course Cristina Brown is a 50 y.o. female with PMH of DM, hidradenitis supparativa, current smoker (1.5ppd), hx of absent seizures, UTI, depression, anxiety, asthma, HLD, celiac disease, presenting to [facility] on 07/08/2025 as transfer with concern for [...] stay, and so will be discharged to [facility]. Surgeries and Procedures Procedures performed in [...] Your Medications These medications were sent to [facility] - [place], [place] - [address] [facility] [facility] [address] [facility] [address] naloxone 4 mg/0.1 mL nasal spray Information [...] 07/11/2025 9:23 AM by Gabriel Segovia - [facility]. - Continue Albuterol and DuoNebs. -Pulm toilet [...] - Improving, continue to monitor Septic shock ([facility]) Overview Addendum 07/12/2025 1:55 PM by Gabriel [...] dressing in place, sutures removed on rounds. [facility] can re- apply negative pressurewound therapy: [...] please call our General Surgery Clinic at [phone]. If there are questions or concerns after discharge from the hospital, call Radha Ugalde, Nurse Coordinator between 7am-3pm at [phone]. If it is after hours, weekends, and holidays please call [phone] and ask for the resident bat person for Emergency General Surgery. Medication requests should be made between the hours of 9:00 AM to 3:00 PM Tuesday thru Tuesday. Please note that based upon recent changes to [place] law related to prescribing opioid pain medications, [...] normal. Judgment: Judgment normal. Discharge Disposition/Condition Disposition: [facility] Condition: Stable (s/sx potential problems absent [...] (H) 07/17/2025 I reviewed bg tracing in our [facility] glucose timeline 07/19/25 ASSESSMENT Hospital Course: Cristina Brown is a 50 y.o. female with hx of type 2 DM, morbid obesity, hidradenitis supparativa, current smoker (1.5 ppd), hx of absent seizures, UTI, depression, anxiety, asthma, HLD, celiac disease who initially came to [facility] on 07/08/2025 as transfer with concern for [...] to establish care with endocrine provider in [place], [place]. --> Provided patient with address and [...] team via secure chat orpage us at [phone] during 7a-7p, Tuesday-Tuesday. For after hours please [...] 7:04 AM EDT 07/19/25 Cristina Brown HPI Irinadiann Kevin is a 50F with pMHx of absence seizure, hidradenitis suppurative, hypertension, T2DM,obesity, tobacco use disorder, and newly diagnosed JOSEP who presented to [facility] with leukocytosis and exam findings consistent with [...] Output by Drain (mL) 07/17/25 07 - 07/17/25185807/17/25 190 - 07/18/25 0659 07/18/25 07 - 07/18/25 18507/18/25 1900 - 07/19/25 0659 07/19/25 07 - 07/19/25 0707 Patient has no LDAs [...] the brett pad. After discussion with chief bat person, decision was made to remove the [place] and place a lfv-urp-ifrpwmdy with Kerlix, Polymem, ABD pads, and skin tape. Please see daily progress notes for additional plans. - Jatin Miller MD Plastic and Reconstructive Surgery, PGY-1 * Care Plan - Inessa Almazan RN - 07/18/2025 11:24 PM EDT Problem: Adult Inpatient Plan of Care Goal: Plan of Care Review 07/18/20252319 by Inessa Almazan RN Outcome: Ongoing, Progressing Flowsheets Taken 07/18/2025 2320 by Inessa Almazan RN Progress: improving Taken 07/18/2025 1633 by Jois Ann RN Plan of Care Reviewed With: patient 07/18/2025 2319 by Nipper, Inessa D, RN Outcome: Ongoing, Progressing Flowsheets Taken 07/18/2025 2319 by Inessa Almazan, RN Progress: improving Taken 07/18/2025 1633 by Josi Ann RN Plan of Care Reviewed With: patient Goal: Patient-Specific Goal (Individualized) 07/18/20252319 by Inessa Almazan, RN Outcome: Ongoing, Progressing Flowsheets (Taken 07/18/20251999) Patient/Family-Specific Goals (Include Timeframe): Patient will state adequate pain control for duration of shift. Individualized Care Needs: pain management Anxieties, Fears or Concerns: going to rehab 07/18/2025 2319 by Inessa Almazan, RN Outcome: Ongoing, Progressing Flowsheets (Taken 07/18/20251999) [...] Promote and Optimize Oral Intake Flowsheets (Taken 07/18/20250) Oral Nutrition Promotion: calorie-dense foods provided rest [...] HOB elevated Taken 07/18/2025 1600 by Josi Ann RN Pressure Reduction Techniques: [...] Note Cristina Brown 50 y.o. female CSN: [id number] Admission: 07/08/2025 5:58 PM Primary Problem: Necrotizing fasciitis (CMS/HCC) Anticipated Discharge Date: 07/19/25 Has Discharge Plans Changed? Yes [facility] Acute Rehab Medicare Second Notice: Housing Circumstances: Low Income ( 101-300% Federal Poverty Guideline) Housing Circumstances Action Taken: Medically Ready for Discharge: Anticipated Tomorrow Additional Comments Per the MD pt is medically ready to d/c after she can tolerate her wv being changed without IV painmedication. SW talked with the pt and she is agreeable to go to [facility] however she still has a lot of questions and concerns that the MD is going to speak with the pt about to ease some of her concerns. The pt also has an area that is looking more concerning to the pt based on her prior skin issues/infections and she wants peace of mind about that prior to d/c. SW has communicated these thingsto the MD team. Pt will transfer to [facility] via shuttle on 07/19 if all needs are addressed. Annie [place] * Progress Notes - Sherrill Villa, CRYOGENIC TRANSPORT DRIVER - 07/18/2025 8:46 AM EDT Endocrine - [...] HLD, celiac disease who initially came to [facility] on 07/08/2025 as transfer with concern for [...] to establish care with endocrine provider in [place], [place]. --> Provided patient with address and [...] Adult Inpatient Diabetes team via secure chat orpaSplitforce us at [phone] during -7p, Tuesday-Tuesday. For after hours please contact the [...] Morbid (severe) obesity due to excess calories ([facility]) Complicates all aspect of care * Assessment [...] 7:05 AM EDT Associated Problem(s): Postoperative pain [facility] * Progress Notes - Jason Andre [...] by Drain (mL) 07/16/25 07 - 07/16/25 18507/16/251899 - 07/17/25 0659 07/17/25 07 - 07/17/25 18507/17/25 190 - 07/18/25 0659 07/18/25 07 - 07/18/25 07 Patient has no LDAs of requested type [...] last 7 days Lab Units 07/18/25 0603 07/17/25 0520 07/16/25 0525 HEMOGLOBIN g/dL 9.1* 9.2* 8.9* HEMATOCRIT % 28.8* 29.4* 28.9* INR Cr Results from last 7 days Lab Units 07/18/25 0603 07/17/25 0520 07/16/25 0525 CREATININE mg/dL 0.65 0.59* [...] Care Review Outcome: Ongoing, Progressing Flowsheets Taken 07/18/2025 0205 by Inessa Almazan RN Progress: improving Taken [...] Ongoing, Progressing Intervention: Promote Activity and Functional Wayne Flowsheets (Taken 07/18/2025204) Activity Assistance Provided: assistance, [...] Review Outcome: Ongoing, Progressing Flowsheets (Taken 07/17/2025 193) Progress: improving Plan of Care Reviewed With: [...] Ongoing, Progressing Intervention: Promote Activity and Functional Wayne Flowsheets Taken 07/16/2025 0635 by Yessenia Ramirez Activity Assistance Provided: assistance, stand-by Taken 07/16/2025 0129 by Eulalia Estrada RN [...] (H) 07/15/2025 I reviewed bg tracing in [facility] glucose timeline 07/17/25 ASSESSMENT Hospital Course: Cristina Brown is a 50 y.o. female with hx of type 2 DM, morbid obesity, hidradenitis supparativa, current smoker (1.5 ppd), hx of absent seizures, UTI, depression, anxiety, asthma, HLD, celiac disease who initially came to [facility] on 07/08/2025 as transfer with concern for [...] to establish care with endocrine provider in [place], [place]. --> Provided patient with address and [...] via secure chat or page us at [phone] during 7a-7p, Tuesday-Tuesday. For after hours please [...] care close to her sisters house in [place]. CM notified. * Assessment & Plan Note - Jason Andre MD - 07/17/2025 10:21 AM EDT Associated Problem(s): Necrotizing fasciitis ([facility]) - 07/09: debridement of necrotizing fasciitis [...] 10:21 AM EDT Associated Problem(s): Septic shock (CMS/[facility]) Septic shock secondary to necrotizing fascitis. Required [...] 07/17/2025 10:18 AM EDT 07/17/25 Cristina Brown [facility] 50-year-old female with past medical history [...] closure. Edited by: Inderjit Montes PA at 07/17/2025928 Jason Andre MD Cosigned by Anne Franco [...] precautions HOME LIVING/SET-UP Lives With Significant other (fiance [...] admission Level of Mobility Ambulatory- community Mobility Wayne Independent gait without device History of Falls [...] motivated and engaged throughout Visitors Present None Employment Specialist (if applicable) OBJECTIVE PAIN Rates pain at [...] needed areas of treatment space Level of Wayne Interventions: Feeding Independent Edge of bed Patient [...] Level of Assistance: Moderate assistance Adaptive Equipment: State Historical Society Director, Sock aide Training and demonstration provided for use and functionality of sock aid, leg x ray equipment servicer strap and bench worker binding tool to support independence with LB dressing, [...] and prioritizing during ADL performance. Access Code: [email or web address] URL: [email or web address] Putting On Socks with a Sock Aid Putting On and Taking Off Pants Using a State Historical Society Director Using a Leg Glass Fitter Adaptive Equipment for Bathing & Showering Understanding Energy Conservation BED MOBILITY Level of Wayne Physical/Non- physical Assist Adaptive Equipment Utilized Supine to Sit Modified Wayne Bed rails TRANSFERS Level of Wayne Physical/Non- physical Assist Adaptive Equipment Utilized Sit [...] at 10:21 AM. * Progress Notes - Yong Polina Luz - 07/17/2025 10:02 AM EDT PHYSICAL THERAPY [...] mobilizing. HOME LIVING/SET-UP Lives With Significant other (dheeraj [...] admission Level of Mobility Ambulatory- community Mobility Wayne Independent gait without device History of Falls [...] unaware when pt may be discharged from [facility]. Employment Specialist (if applicable) Not Applicable OBJECTIVE & INTERVENTIONS [...] pt's true mobility BED MOBILITY Level of Wayne Physical/Non- physical Assist Adaptive Equipment Utilized Rolling/ Turning Scooting/ Bridging Supine to Sit Modified Wayne Bed rails Sit to Supine Interventions TRANSFERS Level of Wayne Physical/Non- physical Assist Adaptive Equipment Utilized Sit to Stand Stand-by assist Supervision Rollator Stand to sit Stand-by assist Supervision Rollator Bed to Chair Toilet Transfer Shower Transfer Interventions BALANCE Postural Appearance Posture: Forward head, Rounded shoulders Level of Wayne Balance Support Interventions Static Sit Standby assist Feet supported Dynamic Sit Contact guard Feet supported Dynamic Sitting-Balance: Lateral weight shifts, Anterior/Posterior weight shifts Static Stand Contact guard Right upper extremity support, Left upper extremity support Standing in room prior to ambulation Dynamic Stand Contact guard Right upper extremity support, Left upper extremity support 3 bouts of approx 1 min each AMBULATION Level of Wayne Distance Adaptive Equipment Utilized Ambulation Contact guard [...] Taken 07/17/2025 0608 Progress: improving Taken 07/16/2025 012 Plan of Care Reviewed With: patient Goal: [...] Intervention: Optimize Skin Protection Flowsheets Taken 07/17/2025 045 by Eulalia Estrada [...] Prevent or Manage Infection Flowsheets Taken 07/17/2025 0450 by Eulalia Estrada RN Isolation Precautions: precautions [...] Ongoing, Progressing Intervention: Promote Activity and Functional Wayne Flowsheets Taken 07/16/2025 0635 by Yessenia Ramirez [...] promoted Taken 07/14/2025 1800 by Josi Ann counselor marriage and family/Support System Care: support provided Goal: Optimal Functional [...] Intervention: Optimize Skin Protection Flowsheets Taken 07/17/2025 045 by Eulalia Estrada [...] Intervention: Promote Wound Healing Flowsheets (Taken 07/16/2025 1810 by Isha Colunga RN) Sleep/Rest Enhancement: regular sleep/rest pattern promoted * Care Plan - Denia Boo RN - 07/16/2025 6:38 PM EDT Problem: Adult Inpatient Plan of Care Goal: Plan of Care Review Outcome: Ongoing, Progressing Flowsheets (Taken 07/16/2025 012 [...] Risk Flowsheets (Taken 07/16/2025 0640 by Eulalia Estrada RN) VTE Prevention/Management: medication Intervention: Prevent Infection Flowsheets (Taken 07/16/2025 0129 by Eulalia Estrada RN) Infection Prevention: hand hygiene promoted rest/sleep promoted single patient room provided environmental surveillance performed equipment surfaces disinfected personal protective equipment utilized Goal: Optimal Comfort and Wellbeing Outcome: Ongoing, Progressing Intervention: Monitor Pain and Promote Comfort Flowsheets (Taken 07/16/2025 012 by Eulalia Estrada [...] encouraged Taken 07/14/2025 1800 by Josi Ann deburrer strip Review/Management: medications reviewed Intervention: Promote Injury-Free Environment Flowsheets (Taken 07/16/2025 1700 by Diego Munroe) Safety Promotion/Fall Prevention: safety round/check completed nonskid shoes/slippers when out of bed mobility aid in reach room organization consistent clutter-free environment maintained assistive device/personal items within reach Problem: Self-Care Deficit Goal: Improved Ability to Complete Activities of Daily Living Outcome: Ongoing, Progressing Intervention: Promote Activity and Functional Wayne Flowsheets Taken 07/16/2025 0635 by Yessenia Ramirez [...] 07/16/20251809 by Isha Colunga RN Flowsheets (Taken 07/16/2025128 by Eulalia Estrada RN) Progress: improving Plan of Care Reviewed With: patient 07/16/2025 1808 by Isha Colunga RN Outcome: Ongoing, Progressing Flowsheets (Taken 07/16/2025 012 by Eulalia Estrada RN) Progress: improving Plan of Care Reviewed With: patient Goal: Patient-Specific Goal (Individualized) 07/16/20251809 by Ihsa Colunga RN Flowsheets (Taken 07/16/2025 09 by Denia Boo RN) Patient/Family-Specific Goals (Include Timeframe): patient will be able to report a pain less than 5 for the entire shift Individualized Care Needs: pain management Anxieties, Fears or Concerns: pain 07/16/20251807 by Isha Colunga RN Outcome: Ongoing, Progressing Flowsheets (Taken 07/16/2025 09 by Denia Boo RN) Patient/Family-Specific Goals (Include Timeframe): patient will be able to report a pain less than 5 for the entire shift Individualized Care Needs: pain management Anxieties, Fears or Concerns: pain Goal: Absence of Hospital-Acquired Illness or Injury Outcome: Ongoing, Progressing Intervention: Identify and Manage Fall Risk 07/16/20251809 by Isha Colunga RN Flowsheets (Taken 07/16/2025 170 by Diego Munroe) Safety Promotion/Fall Prevention: safety round/check completed nonskid shoes/slippers when out of bed mobility aid in reach room organization consistent clutter-free environment maintained assistive device/personal items within reach 07/16/2025 180 by Isha Colunga RN Flowsheets (Taken 07/16/2025 170 by Diego Munroe) Safety Promotion/Fall Prevention: safety round/check completed nonskid shoes/slippers when out of bed mobility aid in reach room organization consistent clutter-free environment maintained assistive device/personal items within reach Intervention: Prevent Skin Injury 07/16/20251809 by Isha Colunga RN Flowsheets (Taken 07/16/2025 1700 by Denia Boo RN) Body Position: weight shifting 07/16/2025 1808 by Isha Colunga RN Flowsheets (Taken 07/16/2025 1700 by Denia Boo RN) Body Position: weight shifting Intervention: Prevent and Manage VTE (Venous Thromboembolism) Risk 07/16/2025 1810 by Isha Colunga RN Flowsheets (Taken 07/16/2025 0640 by Eulalia Estrada RN) VTE Prevention/Management: medication 07/16/2025 1808 by Isha Colunga RN Flowsheets (Taken 07/16/2025 0640 by Eulalia Estrada RN) VTE Prevention/Management: medication Intervention: Prevent Infection 07/16/20251809 by Isha Colunga RN Flowsheets (Taken 07/16/2025 0129 by Eulalia Estrada RN) Infection Prevention: hand hygiene promoted rest/sleep promoted single patient room provided environmental surveillance performed equipment surfaces disinfected personal protective equipment utilized 07/16/2025 180 by Isha Colunga RN Flowsheets (Taken 07/16/2025 0129 by Eulalia Estrada RN) Infection Prevention: hand hygiene promoted rest/sleep promoted single patient room provided environmental surveillance performed equipment surfaces disinfected personal protective equipment utilized Goal: Optimal Comfort and Wellbeing Outcome: Ongoing, Progressing Intervention: Monitor Pain and Promote Comfort 07/16/20251809 by Isha Colunga RN Flowsheets (Taken [...] relaxation techniques promoted Intervention: Provide Person-Centered Care 07/16/20251809 by Isha Colunga RN Flowsheets (Taken 07/14/2025 [...] (Taken 07/16/2025 0129 by Eulalia Estrada RN) Oral Nutrition Promotion: adaptive equipment use encouraged rest periods promoted 07/16/2025 1808 by Isha Clounga RN Flowsheets (Taken 07/14/2025 1800 by Josi Ann, RN) Nutrition Interventions: frequent small meals provided supplemental drinks provided Problem: Infection Goal: Absence of Infection Signs and Symptoms Outcome: Ongoing, Progressing Intervention: Prevent or Manage Infection 07/16/2025 1810 by Isha Colunga RN Flowsheets Taken 07/16/2025 0900 by Denia Boo RN Isolation Precautions: precautions maintained Taken 07/15/2025 1325 by Highkin, Sophia J, RN Infection Management: aseptic technique maintained 07/16/2025 1808 by Isha Colunga RN Flowsheets (Taken 07/15/2025 1325 by Sopiha Salazar RN) Infection Management: aseptic technique maintained Problem: Fall Injury Risk Goal: Absence of Fall and Fall-Related Injury Outcome: Ongoing, Progressing Intervention: Identify and Manage Contributors 07/16/2025 1810 by Isha Colunga RN Flowsheets (Taken 07/16/2025 012 by Eulalia Estrada RN) Self-Care Promotion: independence encouraged BADL personal objects within reach BADL personal routines maintained adaptive equipment use encouraged 07/16/2025 1808 by Isha Colunga RN Flowsheets (Taken 07/14/2025 1800 by Josi Ann RN) Medication Review/Management: medications reviewed Problem: Self-Care Deficit Goal: Improved Ability to Complete Activities of Daily Living Outcome: Ongoing, Progressing Intervention: Promote Activity and Functional Wayne Flowsheets (Taken 07/16/2025 012 by Eulalia Estrada RN) Self-Care Promotion: independence encouraged BADL personal objects within reach BADL personal routines maintained adaptive equipment use encouraged Problem: Wound Goal: Optimal Coping Outcome: Ongoing, Progressing Intervention: Support Patient and Family Response Flowsheets (Taken 07/16/2025128 by Eulalia Estrada RN) Supportive Measures: active listening utilized verbalization [...] sleep/rest pattern promoted Taken 07/16/2025128 by Eulalia Estrada, tutoring manager Interventions: (care plan) pillow support provided position [...] 3:01 PM EDT SW received call from Apprenticeship Representative offering assistance for d/c planning. Her Callback #[phone] * Progress Notes - Sherrill Villa APRN [...] (H) 07/14/2025 I reviewed bg tracing in [facility] glucose timeline 07/16/25 ASSESSMENT Hospital Course: Cristina Brown is a 50 y.o. female with hx of type 2 DM, morbid obesity, hidradenitis supparativa, current smoker (1.5 ppd), hx of absent seizures, UTI, depression, anxiety, asthma, HLD, celiac disease who initially came to [facility] on 07/08/2025 as transfer with concern for [...] to establish care with endocrine provider in [place], [place]. --> Provided patient with address and [...] team via secure chat orpage us at [phone] during 7a-7p, Tuesday-Tuesday. For after hours please [...] night ipratropium-albuterol, 3 mL, Nebulization, q6h RT Jsoe, 1 packet, Oral, BID lamoTRIgine, 100 mg, [...] 6:52 AM EDT Associated Problem(s): Necrotizing fasciitis (CMS/HCC) [...] care * Assessment & Plan Note - Jaosn Andre MD - 07/16/2025 6:52 AM EDT [...] Airway None Output by Drain (mL) 07/14/25 0700 - 07/14/25 1859 07/14/25 1900 - 07/15/25 0659 07/15/25 0700 - 07/15/25 1859 07/15/25 1900 - 07/16/25 0651 Requested LDAs do not [...] night Postoperative pain Present on Admission: Unknown [facility] Non-Hospital Problems Carpal tunnel syndrome Dehydration [...] Review Outcome: Ongoing, Progressing Flowsheets (Taken 07/16/2025 012) Progress: improving Plan of Care Reviewed With: [...] VTE (Venous Thromboembolism) Risk Flowsheets (Taken 07/16/2025 012) VTE Prevention/Management: medication Intervention: Prevent Infection Flowsheets [...] lightweight clothing Isolation Precautions: precautions maintained Taken 07/15/20251324 by Sophia Salazar RN Infection Management: aseptic [...] Ongoing, Progressing Intervention: Promote Activity and Functional Wayne Flowsheets (Taken 07/16/2025128) Self-Care Promotion: independence encouraged BADL personal objects within reach BADL personal routines maintained adaptive equipment use encouraged Problem: Wound Goal: Optimal Coping Outcome: Ongoing, Progressing Intervention: Support Patient and Family Response Flowsheets Taken 07/16/2025128 by Eulalia Estrada RN Supportive Measures: active listening utilized verbalization of feelings encouraged problem-solving facilitated relaxation techniques promoted Taken 07/14/2025 1800 by Josi Ann counselor marriage and family/Support System Care: support provided Goal: Optimal Functional Ability Outcome: Ongoing, Progressing Intervention: Optimize Functional Ability Flowsheets Taken 07/16/2025128 by Eulalia Estrada RN Activity Management: activity adjusted per tolerance activity encouraged Taken 07/15/2025 1745 by Denia Boo RN [...] room darkened * Care Plan - Denia oBo RN - 07/15/2025 5:50 PM EDT Problem: [...] Infection Flowsheets (Taken 07/14/2025 1800 by Josi Ann, RN) Infection Prevention: hand hygiene promoted rest/sleep [...] bed utilized Taken 07/14/20251999 by Rita Alejandro, RN Skin Protection: incontinence pads utilized Head of Bed (HOB) Positioning: HOB elevated Taken 07/14/2025 1800 by Josi Ann RN Pressure Reduction Techniques: pressure points protected Intervention: Promote and Optimize Oral Intake Flowsheets Taken 07/15/2025 132 by Sophia Salazar RN Oral Nutrition Promotion: social interaction promoted Taken 07/14/2025 1800 by Josi Ann RN Nutrition Interventions: frequent small meals provided supplemental drinks provided Problem: Infection Goal: Absence of Infection Signs and Symptoms Outcome: Ongoing, Progressing Intervention: Prevent or Manage Infection Flowsheets Taken 07/15/2025 132 by Sophia Salazar RN Infection Management: aseptic technique maintained Isolation Precautions: precautions maintained Taken 07/14/2025 1800 by Josi Ann RN Fever Reduction/Comfort Measures: lightweight bedding Problem: Fall Injury Risk Goal: Absence of Fall and Fall-Related Injury Outcome: Ongoing, Progressing Intervention: Identify and Manage Contributors Flowsheets (Taken 07/14/2025 1800 by Josi Ann RN) Medication Review/Management: medications reviewed Self-Care Promotion: independence encouraged Intervention: Promote Injury-Free Environment Flowsheets (Taken 07/15/2025 0900) Safety Promotion/Fall Prevention: activity supervised lighting adjusted nonskid shoes/slippers when out of bed assistive device/personal items within reach clutter-free environment maintained Problem: Self-Care Deficit Goal: Improved Ability to Complete Activities of Daily Living Outcome: Ongoing, Progressing Intervention: Promote Activity and Functional Wayne Flowsheets Taken 07/15/2025 174 by Denia Boo RN Activity Assistance Provided: assistance, stand-by Taken 07/14/20252310 by Rita Alejandro, RN Adaptive Equipment Use: long-handled shoe horn Taken 07/14/2025 1800 by Josi Ann RN Self-Care Promotion: independence encouraged Problem: Wound Goal: Optimal Coping Outcome: Ongoing, Progressing Intervention: Support Patient and Family Response Flowsheets Taken 07/15/2025 132 by Sophia Salazar RN Supportive Measures: positive reinforcement provided Taken 07/14/2025 1800 by Josi Ann counselor marriage and family/Support System Care: support provided Goal: Optimal Functional [...] Note Cristina Brown 50 y.o. female CSN: [id number] Room/Bed 123/123A Nutrition evaluation type: follow-up Reason for evaluation: Hospital course: 50 y o F transferred from [facility] with concern for necrotizing fasciitis; OR 07/08 for excisional debridement of RLE, groin, pubis, and abdominal wall of skin, subcutaneous tissue, and muscle fascia, [id number]. Septic shock secondary to NSTI. Intubated & [...] Supplemental oxygen O2 Delivery Method: Nasal cannula [place] Coma Scale Score: 15 Julián Scale Score: [...] Estimated Needs: Kcal: 25-27 kcal/kg adj bw (2221-2375 kcal/d) Protein: 1.5-1.7 g/kg adj bw (143-162 [...] Anxiety Asthma Carpal tunnel syndrome Depression Diabetes ([facility]) H/O absence seizures Hidradenitis High cholesterol Hypertension [...] Progress Note Cristina Brown [address] [facility]: [id number] Admission: 07/08/2025 5:58 PM Primary Problem: Necrotizing fasciitis ([facility]) Noodle Press Operator reviewed chart and spoke with patient to complete this Initial Case Management Assessment. PCP: Yenny Dhillon APRN Emergency Contact: Extended Emergency Contact Information Primary Emergency Contact: Yecenia Lake Mobile Relation: Sister Preferred language: Uzbek Employment Specialist needed? No Secondary Emergency Contact: Arnoldo Raymond Address: [address] [place] [address] Mobile Relation: Significant Other Preferred language: Uzbek Employment Specialist needed? No Insurance: Primary Visit Coverage Payer Plan Sponsor Code Group Number Group Name [facility] MEDICAID [facility] MEDICAID [facility] Primary Visit Coverage Subscriber Subscriber ID Subscriber Name Subscriber SSN Subscriber Address [id number] CRISTINA BROWN [id number] [place], [place] [id number] Patient information: Primary Caregiver: Self Accompanied by/Relationship: Arnoldo Bachelor- significant other Support System: Immediate family, Extended family, Friends Daily Living Activities: Functional Status: Minimum assistance Living Arrangements: Family, Friends Type of Residence: Private residence [address] [place] [address] Smoker in the Home?: Yes Current DME: Equipment Currently Used at Home: none Income Information: Income Source: Unemployed Income/Expense Information: Expenses exceed income Current Resources Utilized: Food [place] Housing Circumstances-Z Codes: Housing Circumstances (select all [...] Dialysis Services: N/A Living Will/Advance Directive/Power of Flour Blender /Guardian: N/A Additional Comments: Pt gets her medications from [facility] in [place] * Consults - Anupama [...] HLD, celiac disease who initially came to [facility] on 07/08/2025 as transfer with concern for [...] Anxiety, Asthma, Carpal tunnel syndrome, Depression, Diabetes (CMS/HCC), H/O absence seizures, Hidradenitis, High cholesterol, Hypertension, [...] after discharge close to her home at [place]. She agrees to call and make appointment [...] tablet 1,000 mg 1,000 mg Oral q6h MARIBELL Cheyanne Chakraborty MD 1,000 mg at 07/15/25 0502 albuterol [...] flush 10 mL 10 mL Intravenous q12h [place], Ruthy Black MD 10 mL at 07/15/25 0033 sodium chloride 0.9 % flush 10 mL 10 mL Intravenous q1h PRN Ruthy Craft MD sodium chloride 0.9 % flush 20 mL 20 mL Intravenous q1h PRN Chanelon, Ruthy Black MD Sodium Phosphate-NaCl IVPB 15 mmol 15 mmol Intravenous Once Jason Andre MD Cosigned by Sherrill Villa APRN at 07/15/2025 1:30 PM EDT Associated attestation - Sherrill Villa APRN - 07/15/2025 1:30 PM EDT Reviewed diabetes plan of care with endocrinology fellow. Agree with diabetes plan of care. Provided patient with non Endocrinology referral - patient requested to see neighborhood worker in [place], [place]. Provided patient with address and number [...] 7:15 AM EDT Associated Problem(s): Necrotizing fasciitis ([facility]) - 07/09: debridement of necrotizing fasciitis [...] Airway None Output by Drain (mL) 07/13/25 0700 - 07/13/25 1859 07/13/25 1900 - 07/14/25 0659 07/14/25 07 - 07/14/25 1859 07/14/25 1900 - 07/15/25 0659 07/15/25 0700 - 07/15/25 0714 Requested LDAs do not [...] night Postoperative pain Present on Admission: Unknown [facility] Non-Hospital Problems Carpal tunnel syndrome Dehydration [...] Ongoing, Progressing Intervention: Promote Activity and Functional Wayne Flowsheets Taken 07/14/20252310 by Rita Alejandro RN Adaptive [...] Skin Protection Flowsheets Taken 07/14/20251999 by Rita Alejandro RN Activity Management: back to bed Head [...] Ongoing, Progressing Intervention: Promote Activity and Functional Wayne Flowsheets (Taken 07/14/2025 1800) Activity Assistance Provided: [...] PM EDT Operative Note Date: 07/14/25 Location: [place] Name: Cristina Brown, : 1975, Diagnoses: Pre-op Diagnosis Necrotizing fasciitis (CMS/HCC) Post-op Diagnosis Necrotizing fasciitis (CMS/HCC) Procedure(s): Wound irrigation Partial wound closure, total closed 30 cm length Attending Surgeon(s): * Anne Franco - Primary Pathology Laboratory Aides Teacher(s): * Janell Cross MD - Resident - Assisting Anesthesia: General ASA: III Blood Administration: Blood Product Administration History Product Date Volume Status Transfuse RBC RBC 07/08/2025 350 mL Completed 07/08/252341 Transfuse fresh frozen plasma Plasma 07/08/2025 300 mL Completed 07/08/25 234 Transfuse RBC RBC 07/08/2025 350 mL Completed 07/08/25 234 Transfuse fresh frozen plasma Plasma 07/08/2025 300 mL Completed 07/08/252341 Estimated Blood Loss: Minimal Drains: Urethral Catheter Temperature probe 16 Fr. (Active) Site Assessment Clean;Skin intact 07/14/25 162 CAUTI: Collection Container Standard drainage bag;Collection container below bladder and tubing free of kinks 07/14/25 162 CAUTI: Securement Method Securing device (Describe) 07/14/25 162 CAUTI: Specimen Collection Port Covered with Alcohol Cap Yes 07/14/25 162 CAUTI: Urinary Catheter Indication Yes, meets indication reason 07/14/25 0000 CAUTI: Urinary Catheter Indication Reasons Stage 3-4 sacral/perineal wound with female incontinent patient 07/14/25 0000 Output (mL) 30 mL 07/14/25 1625 [REMOVED] NG/OG [facility] mouth (Removed) Placement Verification distal tube length 07/10/25 08 Tube Placement Length Marking (cm) 60 07/10/25 0800 Site Assessment Clean;Dry;Intact 07/10/25 08 Surrounding Skin Dry;Intact 07/10/25 08 Secured by Tape 07/10/25 08 Secured Location ETT 07/10/25 08 NG/OG Status Clamped;Medication administration only 07/10/25 08 Drainage Appearance Bile 07/09/25 08 NG/OG Interventions Clamped;Irrigated;Medication administration only 07/10/25 08 Irrigant Tap water 07/10/25 0800 Tube Feeding Frequency Other (Comment) 07/10/25 0400 Tube Feeding Rate (mL/hr) 0 mL/hr 07/10/25 0400 Tube Feeding Peptamen Intense VHP 07/10/25 0400 Tube Feeding Method Continuous per pump 07/09/25 2000 Tube Feeding Bag Changed Yes 07/09/25 1205 Free water/flush (mL) 60 mL 07/10/25 0800 Intake (mL) 49 mL 07/10/25 0000 [REMOVED] NG/OG [place] 14 Fr Left nostril (Removed) Placement [...] portions of the procedure(s) and immediately available [facility] services the entire duration. See resident note [...] Morbid (severe) obesity due to excess calories ([facility]) Complicates all aspect of care * Assessment [...] 07/14/2025 7:30 AM EDT 07/14/25 Cristina Brown [facility] 50-year-old female with past medical history [...] by Drain (mL) 07/12/25 07 - 07/12/25 18507/12/25 1900 - 07/13/25 0659 07/13/25 07 - 07/13/25 18507/13/25 190 - 07/14/25 0659 07/14/25 07 - [...] night Postoperative pain Present on Admission: Unknown [facility] Non-Hospital Problems Carpal tunnel syndrome Dehydration [...] by: Jason Andre MD at 07/14/2025 0730 Jason Andre MD Cosigned by Anne Franco [...] clutter-free environment maintained assistive device/personal items within [facility] fall prevention program maintained nonskid shoes/slippers when out of bed room organization consistent safety round/check completed toileting scheduled Problem: Skin Injury Risk Increased Goal: Skin Health and Integrity Outcome: Ongoing, Progressing Intervention: Promote and Optimize Oral Intake Flowsheets Taken 07/13/20251826 by Leatha Watkins RN Oral Nutrition Promotion: rest periods promoted Taken 07/12/2025 1336 by Jeana Bear Nutrition Interventions: diet adjusted Problem: Fall Injury Risk Goal: Absence of Fall and Fall-Related Injury Outcome: Ongoing, Progressing Intervention: Promote Injury-Free Environment Flowsheets (Taken 07/13/20251999) Safety Promotion/Fall Prevention: activity supervised clutter-free environment maintained assistive device/personal items within [facility] fall prevention program maintained nonskid shoes/slippers when out of bed room organization consistent safety round/check completed toileting scheduled Problem: Wound Goal: Optimal Coping Outcome: Ongoing, Progressing Goal: Optimal Pain Control and Function Outcome: Ongoing, Progressing Intervention: Prevent or Manage Pain Flowsheets Taken 07/13/20252126 by Rita Alejandro RN Pain Management Interventions: medication (see MAR) Taken 07/13/20251826 by Leatha Watikns RN Sleep/Rest Enhancement: awakenings minimized Goal: Skin Health and Integrity Outcome: Ongoing, Progressing Intervention: Optimize Skin Protection Flowsheets Taken 07/13/20251999 by Yenny Tong Activity Management: back to bed Head of Bed (HOB) Positioning: HOB at 30-45 degrees Taken 07/09/2025 224 by Cheyanne Briceño RN Pressure Reduction Devices: [...] Ongoing, Progressing Intervention: Promote Activity and Functional Wayne Flowsheets (Taken 07/13/20251826) Activity Assistance Provided: assistance, [...] Case Management Adult Initial Progress Note Cristina Luz Brown 50 y.o. 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 PCP: Yenny Dhillon APRN Emergency Contact: Extended Emergency Contact Information Primary Emergency Contact: Yecenia Lake Mobile Relation: Sister Preferred language: Uzbek Employment Specialist needed? No Secondary Emergency Contact: Arnoldo Raymond [address]: [address] [place] [address] Mobile Relation: Significant Other Preferred language: Uzbek Employment Specialist needed? No Insurance: Primary Visit Coverage Payer Plan Sponsor Code Group Number Group Name [facility] MEDICAID [facility] MEDICAID [facility] Primary Visit Coverage Subscriber Subscriber ID Subscriber Name Subscriber N Subscriber Address [id number] CRISTINA BROWN [id number] [place] [address] Patient information: Primary Caregiver: Self Accompanied by/Relationship: Arnoldo aRymond- significant other Support System: Immediate family Daily Living Activities: Functional Status: Independent Living Arrangements: Spouse/Significant other Type of Residence: Private residence [address] [place] [address] Current DME: Equipment Currently Used at Home: none Income Information: Housing Circumstances-Z Codes: Patient Referred to: Anticipated Discharge Date: unknown Patient's Discharge Goal: Referrals sent for Acute Rehab Assistance Available at Discharge: Arnoldo Raymond Discharge Transport: Arnoldo Raymond Follow Up Transport: Arnoldo raymond Home Health / Home Infusion / Outpatient Dialysis Services: none Living Will/Advance Directive/Power of Flour Blender /Guardian: Additional Comments: CM discussed acute rehab placement with Cristina and Arnoldo Raymond. Their first choice is [facility] in [place], [place]. CM sent referrals in [facility]. Cristina will continue inpatient management for [...] 12:36 PM EDT Associated Problem(s): Postoperative pain [facility] * Progress Notes - Aparna Shultz - 07/13/2025 11:59 AM EDT Occupational Therapy Evaluation Patient Name: Cristina Brown Today's Date: 07/13/2025 OT Discharge Recommendations: Acute rehab Equipment Recommended: Defer to facility History Cristina Brown is 50 y.o. female admitted 07/08/2025 for work-up of Necrotizing fasciitis ([facility]). Problem List Active Hospital Problems Diagnosis Date Noted Postoperative pain 07/13/2025 JOSEP (obstructive sleep apnea) 07/11/2025 HLD (hyperlipidemia) 07/10/2025 Acute respiratory failure 07/09/2025 Septic shock ([facility]) 07/09/2025 Absence seizure ([facility]) 07/09/2025 DM (diabetes mellitus) ([facility]) 07/08/2025 Hidradenitis 07/08/2025 HTN (hypertension), benign 08/31/2023 Urge incontinence 08/31/2023 Smoker 06/09/2023 Depression 06/09/2023 Morbid (severe) obesity due to excess calories ([facility]) 02/15/2022 Chronic obstructive pulmonary disease, unspecified ([facility]) 01/09/2022 Necrotizing fasciitis ([facility]) 07/08/2025 Procedures 07/11/2025 Procedure(s): APPLICATION OR REPLACEMENT, WOUND VAC Past Medical History Patient has a past medical history of Anxiety, Asthma, Carpal tunnel syndrome, Depression, Diabetes(CMS/HCC), H/O absence seizures, Hidradenitis, High cholesterol, Hypertension, [...] evaluation. Participants in Care Family/Caregiver Present: No Employment Specialist: Not Applicable Presentation Oxygen Therapy: Supplemental oxygen [...] admission Level of Mobility: Ambulatory- community Mobility Wayne: Independent gait without device History of Falls: [...] Mobility Bed Mobility Exam: Scooting/Bridging Level of Wayne: Contact guard (seated scoot once sitting up on EOB and able to wiggle back into recliner chair) Bed Mobility Exam: Supine to Sit Level of Wayne: Moderate assist (50% patient's effort) Physical/Nonphysical Assist: Verbal Cues, Moderate cues, Additional assist utilized for safety, HOBelevated Assistive Device: Other (MANAGER PROGRAMMING x2) Transfers Transfer Interventions: Patient performed sit < > stand x 3 reps total: Mod A from EOB, Min Afrom recliner chair, and CGA from BSC. Transfer Exam: Sit to stand Level of Wayne: Minimum assist (75% patient's effort) Physical/Nonphysical Assist: Verbal Cues, Minimal cues Assistive Device: Walker, rolling (andrea) Transfer Exam: Stand to Sit Level of Wayne: Minimum assist (75% patient's effort) Physical/Nonphysical Assist: Verbal Cues, Minimal cues Assistive Device: Walker, rolling (andrea) Transfer Exam: Bed to Chair/Chair to Bed Level of Wayne: Minimum assist (75% patient's effort) Physical/Nonphysical Assist: Verbal Cues, Minimal cues, Additional assist utilized for safety Type of Transfer: Sidesteps (bed > chair < > BSC) Assistive Device: Walker, rolling (andrea) Toilet Transfer Level of Wayne: Minimum assist (75% patient's effort) Physical/Nonphysical Assist: [...] Interventions Self Care/Home Management (ADLs) Time Entry: Self-Care Interventions: Pt actively participated in self-care [...] to allow bedside care to take placed (HOSPITAL INSURANCE CLERK entering to take vitals; RN enforcing bandages [...] for further toileting ADL needs. Standardized Assessments [facility] 6-Click Daily Activities Help from Other: Don/Doff Regular Lower Body Clothings: A lot Help From Other: Bathing: A lot Help From Other: Toileting: A lot Help From Other: Don/Doff Upper Body Clothings: Little Help From Other: Grooming: None Help From Other: Eating Meals: None [facility] 6 Click - Daily Activities Score: 17 [...] admitted 07/08/2025 for work-up of Necrotizing fasciitis ([facility]). Problem List Active Hospital Problems Diagnosis Date Noted Postoperative pain 07/13/2025 JOSEP (obstructive sleep apnea) 07/11/2025 HLD (hyperlipidemia) 07/10/2025 Acute respiratory failure 07/09/2025 Septic shock ([facility]/HCC) 07/09/2025 Absence seizure ([facility]) 07/09/2025 DM (diabetes mellitus) ([facility]) 07/08/2025 Hidradenitis 07/08/2025 HTN (hypertension), benign 08/31/2023 Urge incontinence 08/31/2023 Smoker 06/09/2023 Depression 06/09/2023 Morbid (severe) obesity due to excess calories ([facility]) 02/15/2022 Chronic obstructive pulmonary disease, unspecified ([facility]) 01/09/2022 Necrotizing fasciitis ([facility]/HCC) 07/08/2025 Procedures 07/11/2025 Procedure(s): APPLICATION OR REPLACEMENT, WOUND VAC Past Medical History Patient has a past medical history of Anxiety, Asthma, Carpal tunnel syndrome, Depression, Diabetes(CMS/HCC), H/O absence seizures, Hidradenitis, High cholesterol, Hypertension, [...] move. Participants in Care Family/Caregiver Present: No Employment Specialist: Not Applicable Presentation Oxygen Therapy: Supplemental oxygen [...] admission Level of Mobility: Ambulatory- community Mobility Wayne: Independent gait without device History of Falls: [...] Mobility Bed Mobility Exam: Scooting/Bridging Level of Wayne: Contact guard (seated scoot once sitting up on EOB and able to wiggle back into recliner chair) Bed Mobility Exam: Supine to Sit Level of Wayne: Moderate assist (50% patient's effort) Physical/Nonphysical Assist: Verbal Cues, Moderate cues, Additional assist utilized for safety, HOBelevated Assistive Device: Other (MANAGER PROGRAMMING x 2) Transfers Transfer Interventions: Patient performed sit < > stand x 3 reps total: Mod A from EOB, Min Afrom recliner chair, and CGA from BSC. Cues for safe hand placement during transitions using RW. Transfer Exam: Sit to stand Level of Wayne: Minimum assist (75% patient's effort) Physical/Nonphysical Assist: Verbal Cues, Minimal cues Assistive Device: Walker, rolling (andrea) Transfer Exam: Stand to Sit Level of Wayne: Minimum assist (75% patient's effort) Physical/Nonphysical Assist: Verbal Cues, Minimal cues Assistive Device: Walker, rolling (andrea) Transfer Exam: Bed to Chair/Chair to Bed Level of Wayne: Minimum assist (75% patient's effort) Physical/Nonphysical Assist: Verbal Cues, Minimal cues, Additional assist utilized for safety Type of Transfer: Sidesteps (bed > chair < > BSC) Assistive Device: Walker, rolling (andrea) Toilet Transfer Level of Wayne: Minimum assist (75% patient's effort) Physical/Nonphysical Assist: [...] assistance Standardized Assessments Standardized Assessments Standardized Assessments: [facility] 6-Clicks Mobility Assessment [facility] 6-Clicks Mobility Assessment Difficulty patient has turning [...] climbing 3-5 steps with a railing?: Unable [facility] 6-Clicks Mobility Assessment Total : 15 No [...] D/C HOME) 2 weeks Written by Madeline Grant PT on 07/13/25 at 12:37 PM. * Hospital Course - Becky Graff APRN - 07/13/2025 10:42 AM EDT Cristina Brown is a 50 y.o. female with PMH of DM, hidradenitis supparativa, current smoker (1.5ppd), hx of absent seizures, UTI, depression, anxiety, asthma, HLD, celiac disease, presenting to [facility] on 07/08/2025 as transfer with concern for [...] stay, and so will be discharged to [facility]. * Assessment & Plan Note - [...] 1859 07/12/25 1900 - 07/13/25 0659 07/13/25 07 - 07/13/25 0752 Requested LDAs do not [...] night Postoperative pain Present on Admission: Unknown [facility] Non-Hospital Problems Carpal tunnel syndrome Dehydration [...] utilized Intervention: Prevent Infection Flowsheets (Taken 07/12/2025 133) Infection Prevention: hand hygiene promoted Goal: Optimal Comfort and Wellbeing Outcome: Ongoing, Progressing Intervention: Monitor Pain and Promote Comfort Flowsheets (Taken 07/12/2025 0808) Pain Management Interventions: medication (see MAR) Intervention: Provide Person-Centered Care Flowsheets (Taken 07/12/2025 133) Trust Relationship/Rapport: care explained choices provided emotional support provided empathic listening provided questions answered questions encouraged reassurance provided thoughts/feelings acknowledged Problem: Skin Injury Risk Increased Goal: Skin Health and Integrity Outcome: Ongoing, Progressing Intervention: Promote and Optimize Oral Intake Flowsheets (Taken 07/12/2025 133) Nutrition Interventions: diet adjusted * Progress Notes [...] Airway None O2 Delivery Method: Nasal cannula WY SUP: 10 cm H20 Insp Time (sec): 1 sec FiO2 (%): 40 % S RR: 20 WY SUP: 10 cm H20 Output by Drain (mL) 07/10/25 0700 - 07/10/25 1859 07/10/25 1900 [...] saw and evaluated the patient with the medical/ASSET CARD CLERK/PA student. I discussed the case with the medical/ASSET CARD CLERK/PA student and agree with the findings and [...] PM EDT Operative Note Date: 07/11/25 Location: [place] Name: Cristina Brown, : 1975, Diagnoses: Pre-op Diagnosis Necrotizing fasciitis (CMS/HCC) Post-op Diagnosis Necrotizing fasciitis (CMS/HCC) Procedure(s): Right groin/perineum/thigh/abdominal wound exploration and washout Attending Surgeon(s): * Dorcas Hennessy - Primary Pathology Laboratory Aides Teacher(s): * Janell Cross MD - Resident - [...] below bladder and tubing free of kinks 07/11/25 1400 CAUTI: Securement Method Securing device (Describe) 07/11/25 [...] having surgery for Necrotizing fasciitis (CMS/HCC). Patient had 2 prior debridements of her [...] Note Cristina Brown 50 y.o. female CSN: [id number] Room/Bed 133/133A Nutrition evaluation type: follow-up Reason for evaluation: Hospital course: 50 y o F transferred from [facility] with concern for necrotizing fasciitis; OR 07/08 for excisional debridement of RLE, groin, pubis, and abdominal wall of skin, subcutaneous tissue, and muscle fascia, [id number]. Septic shock secondary to NSTI. Intubated & [...] Estimated Needs: Kcal: 25-27 kcal/kg adj bw (4106-1278 kcal/d) Protein: 1.5-1.7 g/kg adj bw (143-162 [...] -will monitor NPO duration -po per MD/ FURNITURE MOVER HELPER -when po diet appropriate, rec CC3, Gluten [...] vasopressin, 0.03 Units/min, Last Rate: 0.03 Units/min (07/11/25 0700) [6] PRN medications: albuterol, glucose OR dextrose [...] Morbid (severe) obesity due to excess calories ([facility]); Type 2 diabetes mellitus withhyperglycemia, without long- term current use of insulin Surgical ICU Daily Progress Note 07/11/25 Cristina Escobar Kevin [facility] 50-year-old female with past medical history [...] Vent Status (ETT, Trach Only): In use WY SUP: 5 cm H20 Insp Time (sec): 1.5 sec Vent Mode: PS FiO2 (%): 60 % S RR: 14 WY SUP: 5 cm H20 MAP (cm H2O): 9 Output by Drain (mL) 07/09/25 07 - 07/09/25 18507/09/25 190 - 07/10/25 0659 07/10/25699 - 07/10/25 18507/10/25 190 - 07/11/25 0659 [...] Progressing Flowsheets Taken 07/11/2025 0118 by Cheyanne Briceño RN Progress: improving Taken 07/10/2025 1717 by Isha Cueto RN Plan of Care Reviewed With: patient Goal: Patient-Specific Goal (Individualized) Outcome: Ongoing, Progressing Flowsheets (Taken 07/11/2025 0117) Patient/Family-Specific Goals (Include Timeframe): PT pain score will be within targeted range during shift with PRN meds. Individualized Care Needs: pain control Anxieties, Fears or Concerns: pain Problem: Mechanical Ventilation Invasive Goal: Effective Communication Outcome: Ongoing, Progressing Intervention: Ensure Effective Communication Flowsheets Taken 07/11/2025 0118 by Cheyanne Briceño RN Diversional Activities: television Family/Support System Care: self-care encouraged involvement promoted support provided Communication Enhancement Strategies: call light answered in person device use encouraged family involved in communication plan family/caregiver assisted with communication Taken 07/09/2025 1447 by Jeana Bear Relationship/Rapport: care explained choices provided emotional support provided empathic listening provided thoughts/feelings acknowledged reassurance provided questions encouraged questions answered Problem: Skin Injury Risk Increased Goal: Skin Health and Integrity Outcome: Ongoing, Progressing Intervention: Optimize Skin Protection Flowsheets Taken 07/11/2025 0030 by Cheyanne Briceño RN Skin Protection: incontinence pads utilized Taken 07/11/2025 0000 by Briceño, Cheyanne Morris B, RN Activity Management: activity adjusted per tolerance Head of Bed (HOB) Positioning: HOB at 30-45 degrees Taken 07/09/2025 2247 by Cheyanne Briceño, RN Pressure Reduction Devices: alternating pressure pump (MARLA) positioning supports utilized foam padding utilized specialty bed utilized Taken 07/09/2025 1447 by Jeana Bear Pressure Reduction Techniques: heels elevated off bed weight shift assistance provided Problem: Restraint, Nonviolent Goal: Absence of Harm or Injury Outcome: Ongoing, Progressing Intervention: Protect Skin and Joint Integrity Flowsheets Taken 07/11/2025 0118 Body Position: turned Taken 07/11/2025 0030 Skin Protection: incontinence pads utilized Taken 07/11/2025 0000 Range of Motion: ROM (range of motion) performed Problem: Infection Goal: Absence of Infection Signs and Symptoms Outcome: Ongoing, Progressing Intervention: Prevent or Manage Infection Flowsheets Taken 07/11/2025 0118 Infection Management: aseptic technique maintained Fever Reduction/Comfort [...] PM EDT Operative Note Date: 07/10/25 Location: [place] Name: Cristina Brown, : 1975, Diagnoses: Pre-op Diagnosis Necrotizing fasciitis (CMS/HCC) Post-op Diagnosis Necrotizing fasciitis (CMS/HCC) Procedure(s): Right groin/perineum/thigh/abdominal wound exploration, debridement, and washout Attending Surgeon(s): * Dorcas Hennessy - Primary Pathology Laboratory Aides Teacher(s): * Shelby Whittington MD - Resident - [...] 07/08/252341 Estimated Blood Loss: Minimal Drains: NG/OG [place] 14 Fr Left nostril (Active) Placement [...] below bladder and tubing free of kinks 07/10/251199 CAUTI: Securement Method Securing device (Describe) 07/10/25 1200 CAUTI: Specimen Collection Port Covered with Alcohol Cap Yes 07/10/25 08 CAUTI: Urinary Catheter Indication Yes, meets indication reason 07/10/25 08 CAUTI: Urinary Catheter Indication Reasons ICU patient requiring output monitoring q 1-2 hours withinterventions 07/10/25 08 Output (mL) 330 mL 07/10/25 1400 Specimen: None Findings: All viable tissue. Wound measuring approximately [id number]. Packed with 5 kerlix tied together. Indications: [...] Edited by: Lidia Ellis MD at 07/10/2025 1657 Relevant review of systems was obtained as [...] Vent Status (ETT, Trach Only): In use WY SUP: 5 cm H20 Insp Time (sec): 1.5 sec Vent Mode: PS FiO2 (%): 50 % S RR: 14 WY SUP: 5 cm H20 MAP (cm H2O): 9 Output by Drain (mL) 07/08/25 07 - 07/08/25 18507/08/25 190 - 07/09/25 0659 07/09/25 07 - 07/09/25 1859 07/09/25 190 - 07/10/25 0659 07/10/25 0700 - 07/10/25 1859 07/10/25 1900 - 07/10/25 1905 Requested LDAs do not [...] (Principal) Necrotizing fasciitis (CMS/HCC) Yes Overview Addendum 07/10/2025 4:51 PM by Lidia Ellis MD - Presented to with right medial thigh NSTI. - S/p irrigation and debridement on 07/08. - On cefepime, linezolid, and flagyl (07/08-TBD) - Irrigation and debridement of RLE on 07/10. Chronic obstructive pulmonary disease, unspecified (CMS/HCC) Yes Overview Addendum 07/09/2025 4:10 PM by [...] Morbid (severe) obesity due to excess calories ([facility]) Yes Overview Addendum 07/09/2025 4:07 PM by Lidia Ellis MD Complicates care. Smoker Yes Overview Signed 07/09/2025 3:05 PM by Lidia Ellis MD - Patient smokes 0.5-1ppd. - Smoking cessation when appropriate. Urge incontinence Yes DM (diabetes mellitus) ([facility]) Yes Overview Addendum 07/09/2025 4:11 PM by Lidia Ellis MD - Patient hyperglycemic, up to 300s. - Insulin drip per protocol. Hidradenitis Yes Absence seizure ([facility]) (Chronic) Yes Overview Addendum 07/10/2025 4:52 PM by Lidia Ellis MD On Lamictal 50mg BID. Acute respiratory failure Yes Overview Signed 07/09/2025 3:57 PM by Lidia Ellis MD - Patient presenting in septic shock due to RLE necrotizing fasciitis. - Requiring ventilator for respiratory support. Wean as tolerated. Septic shock ([facility]) Yes Overview Addendum 07/10/2025 4:53 PM by [...] - 07/09/2025 11:50 PM EDT 07/09/25 Cristina Borwn Asked by RN to review and reorder [...] Needs: pain control Anxieties, Fears or Concerns: PANHCO Problem: Mechanical Ventilation Invasive Goal: Absence of Device-Related Skin and Tissue Injury Outcome: Ongoing, Progressing Intervention: Maintain Skin and Tissue Health Flowsheets (Taken 07/09/20252246) Device Skin Pressure Protection: absorbent pad utilized/changed positioning supports utilized oxne-ff-khupoh areas padded nxap-au-wogv areas padded Problem: Skin Injury Risk Increased [...] Positioning: HOB at 30-45 degrees Taken 07/09/2025 1447 by Jeana Bear Pressure Reduction Techniques: heels elevated off bed weight shift assistance provided Problem: Restraint, Nonviolent Goal: Absence of Harm or Injury Outcome: Ongoing, Progressing Intervention: Protect Skin and Joint Integrity Flowsheets Taken 07/09/2025 2247 Body Position: turned Skin Protection: pulse oximeter probe site changed incontinence pads utilized Taken 07/09/20250 Range of Motion: active ROM (range of motion) encouraged * Care Plan - Jeana Bear - 07/09/2025 2:49 PM EDT Problem: Adult Inpatient Plan of Care Goal: Optimal Comfort and Wellbeing Outcome: Ongoing, Progressing Intervention: Provide Person-Centered Care Flowsheets (Taken 07/09/2025 1447) Trust Relationship/Rapport: care [...] Note Cristina Brown 50 y.o. female CSN: [id number] Room/Bed 133/133A Nutrition evaluation type: assessment Reason for evaluation: provider consult Hospital course: 50 y o F transferred from OSH with concern for necrotizing fasciitis; OR 07/08 for excisional debridement of RLE, groin, pubis, and abdominal wall of skin, subcutaneous tissue, and muscle fascia, [id number]. Septic shock secondary to NSTI. Intubated & [...] Units 07/09/25 0457 07/08/25 2352 07/08/25 1814 WBC 10*3/uL 32.25* 22.50* 26.15* HEMOGLOBIN g/dL 11.0* 10.0* 10.9* HEMATOCRIT % 33.4* 30.8* 33.6* PLATELETS 10*3/uL 358 273 329 Results from last 7 days Lab Units 07/09/25 0457 07/08/25 2352 07/08/25 1814 SODIUM mmol/L 136 136 131* POTASSIUM [...] oz) Estimated Needs: Kcal: 22-25 kcal/kg IBW (9741-0424 kcal/d) Protein: 2-2.5 g/kg IBW (136-171 g/d) [...] decreased. Palpations: Abdomen is soft. Skin: Comments: [id number] open wound with no extension of cellulitis. [...] PEEP (cmH2O): 18 S VT: 450 mL WY SUP: 10 cm H20 Insp Time (sec): 0.8 sec Vent Mode: PS FiO2 (%): 50 % S RR: 22 S VT: 450 mL WY SUP: 10 cm H20 MAP (cm H2O): 10 Output by Drain (mL) 07/07/25699 - 07/07/25185807/07/251899 - 07/08/25 0659 07/08/25699 - 07/08/25 18507/08/25 190 - 07/09/25 0659 07/09/25699 - 07/09/25 1611 Requested LDAs do not [...] from last 7 days Lab Units 07/09/25 04507/08/25235107/08/25 1814 HEMOGLOBIN g/dL 11.0* 10.0* 10.9* HEMATOCRIT % 33.4* 30.8* 33.6* INR Results from last 7 days Lab Units 07/08/25 23507/08/25 1814 INR 1.2* 1.2* Cr Results from [...] as tolerated. Septic shock (CMS/HCC) Yes Overview Signed 07/09/2025 3:58 PM by Lidia Ellis MD - Septic shock secondary to necrotizing fascitis. - Requiring Levophed for circulatory support. Wean as tolerated. Chronic obstructive pulmonary disease, unspecified (CMS/HCC) Yes Overview Addendum 07/09/2025 4:10 PM by [...] (severe) obesity due to excess calories (CMS/HCC) Yes Overview Addendum 07/09/2025 4:07 PM by Lidia Ellis MD Complicates care. Smoker Yes Overview Signed 07/09/2025 3:05 PM by Lidia Ellis MD - Patient smokes 0.5-1ppd. - Smoking cessation when appropriate. Urge incontinence Yes DM (diabetes mellitus) ([facility]/HCC) Yes Overview Addendum 07/09/2025 4:11 PM by Lidia Ellis MD - Patient hyperglycemic, up to 300s. - Insulin drip per protocol. Hidradenitis Yes Absence seizure ([facility]) (Chronic) Yes Overview Addendum 07/09/2025 4:08 [...] PM EDT Operative Note Date: 07/08/25 Location: [place] OR Name: Cristina Brown, : 1975, Diagnoses: Pre-op Diagnosis Necrotizing fasciitis (CMS/HCC) Post-op Diagnosis Necrotizing fasciitis (CMS/HCC) Procedure(s): Excisional debridement of right thigh, groin pubis and abdominal wall including skin, subcutaneous tissue and fascia measuring 65 x 20 x 2cm Attending Surgeon(s): * Luanne Crawford - Primary Pathology Laboratory Aides Teacher(s): * Kristy Fields MD - Resident - [...] who is having surgery for Necrotizing fasciitis ([facility]). Patient presented as transfer from H with right inner thigh wound which has [...] 07/08/2025 9:01 PM EDT Date: 07/09/25 Location: [place] [facility] Name: Cristina Brown, : 1975, Diagnoses: Pre-op Diagnosis Necrotizing fasciitis (CMS/HCC) Post-op Diagnosis Necrotizing fasciitis (CMS/HCC) Procedure(s): Excisional debridement of right lower extremity, groin, pubis, and abdominal wall of skin, subcutaneous tissue, and muscle fascia, 65x20 cm Attending Surgeon(s): * Luanne Crawford - Primary Pathology Laboratory Aides Teacher(s): * Kristy Fields MD - Resident - Assisting Anesthesia: General ASA: III Blood Administration: Blood Product Administration History Product Date Volume Status Transfuse RBC RBC 07/08/2025 350 mL Completed 07/08/252341 Transfuse fresh frozen plasma Plasma 07/08/2025 300 mL Completed 07/08/252341 Transfuse RBC RBC 07/08/2025 350 mL Completed 07/08/252341 Transfuse fresh frozen plasma Plasma 07/08/2025 300 mL Completed 07/08/25 234 Estimated Blood Loss: 1000 mL Drains: Urethral [...] 07/09/2025 * Assessment & Plan Note - Veluvolu, Amina, MD - 07/08/2025 7:44 PM EDT Associated [...] anxiety, asthma, HLD, celiac disease, presenting to [facility] on 07/08/2025 as transfer with concern [...] Anxiety, Asthma, Carpal tunnel syndrome, Depression, Diabetes (CMS/HCC), H/O absence seizures, Hidradenitis, High cholesterol, Hypertension, [...] Bueno Last Assessment & Plan: Condition: stable Reviewed trigger avoidance and reviewed proper use of inhalers and rescue medications. Reviewed concerning signs/symptoms and ER precautions. Follow up in: three months Dehydration Hidradenitis suppurativa History of hysterectomy HTN (hypertension), benign Depression Morbid (severe) obesity due to excess calories ([facility]/HCC) Overview Signed 08/31/2023 9:36 AM by Janell [...] Janell Bueno Assessment & Plan: Condition: stable Follow up [...] mL IVPB (vial adapter required) 2 g [id number] Deepthi Garcia MD linezolid (Zyvox) injection 600 [...] ppd), asthma, HLD, celiac disease, presenting to [facility] on 07/08/2025 as transfer with concern for [...] Temp Heart Rate Resp BP 07/08/25 1804 09/01180307/08/25 18007/08/25 1820 37 ??C (98.6 ??F) 99 23 (!) 107/48 SpO2 Temp Source Heart Rate Source Patient Position 07/08/25180307/08/25180307/08/25180307/08/25 2334 93 % Oral Monitor Lying BP [...] ED Medication Administration from 07/08/2025 1600 to 07/08/2025 195 Date/Time Order Dose Route Action 07/08/2025 181 EDT norepinephrine 8 mg/250 mL (0.032 mg/mL) infusion 0.04 mcg/kg/min Intravenous New Bag 07/08/2025 1820 EDT linezolid (Zyvox) injection 600 mg 600 mg Intravenous New Bag 07/08/2025 190 EDT linezolid (Zyvox) injection 600 mg 0 mg Intravenous Stopped All Other Orders Ordered Status Ordering Provider 09/12/01 1916 NPO diet Diet effective midnight Acknowledged AMINA RAMIREZ 07/08/251955 Admit to inpatient Once Completed AMINA RAMIREZ 07/08/251916 Skin prep Once Acknowledged MARGARETTE AMINA 07/08/251916 Hibiclens Scrub Until discontinued Comments: Shower/scrub evening before and morning of procedure; include 5 minutes scrub each time to operative site with chlorhexidine gluconate 4% (Hibiclens). Acknowledged AMINA RAMIREZ 07/08/251916 Void bat person to OR Once Acknowledged AMINA RAMIREZ 07/08/251916 Case Request Operating Room: IRRIGATION AND DEBRIDEMENT, WOUND Once Completed AMINA RAMIREZ 07/08/251818 Once Canceled MY CHARLES 07/08/251815 Once Canceled DEEPTHI GARCIA 07/08/25 180 CMP STAT Final result MY CHARLES 07/08/25 180 CBC w/diff STAT Final result MY CHARLES 07/08/25 180 PT-INR STAT Final result MY CHARLES 07/08/25 180 Type and screen Start now Final result MY CHARLES 07/08/25 180 Lactic acid, venous STAT Final result MY CHARLES 07/08/25 180 C-Reactive protein STAT Final result MY CHARLES 07/08/25 180 Blood Culture (Aerobic/Anaerobet Set) STAT Acknowledged MY CHARLES 07/08/25 180 Blood Culture (Aerobic/Anaerobet [...] Completed DEEPTHI GARCIA ED Course as of 07/09/25 0133 TueJul 08, 20251818 Upon arrival patient was stable [...] elevated [MR] 1999 C-Reactive protein(!) elevated [MR] [place] Jul 09, 2025130 Blood cultures ordered and pending [MR] 130 CMP(!) Based on labs, patient with LRINEC score of 13-high risk [MR] ED Course User Index [MR] Deepthi Garcia MD Clinical Impressions as of 07/09/25132 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) Social [...] None Disposition Admit Admitting/Attending Physician: LUANNE CRAWFORD [[id number]] Provider Care Team: E EMERGENCY GENERAL SURGERY ICU 1 [159] Are [...] Visit Medical Office Building Urology [address], [address] [place] [address] Deepthi Matamoros, CRYOGENIC TRANSPORT DRIVER [address] [place] [id number] 08/20/2025 10:30 AM EDT Office Visit [facility] General Surgery [address] [place] [phone] Lilliana Morfin, CRYOGENIC TRANSPORT DRIVER [address] [place] [address] Scheduled Referrals Name Type Priority Associated Diagnoses Order Schedule Discharge Ambulatory referral to NON Endocrinology Outpatient Referral Routine Morbid (severe) obesity due to excess calories (CMS/[facility]) Type 2 diabetes mellitus with hyperglycemia, without long-term current use of insulin ([facility]) Celiac disease Expected: 07/15/2025 (Approximate), Expires: 01/16/2027 [...] UNSOLICITED RESULTS Routine 07/14/2025 4:56 PM EDT PEP THERAPY Routine 07/14/2025 1:09 PM EDT [...] UNSOLICITED RESULTS Routine 07/11/2025 3:36 PM EDT POCT GLUCOSE METER UNSOLICITED RESULTS Routine 07/11/2025 1:52 PM EDT PEP THERAPY Routine 07/11/2025 1:09 PM EDT POCT GLUCOSE METER UNSOLICITED RESULTS Routine 07/11/2025 12:12 PM EDT POCT GLUCOSE METER UNSOLICITED RESULTS Routine 07/11/2025 9:57 AM EDT [facility], E/M 30-74 MINUTES Routine 07/11/2025 8:41 AM EDT Necrotizing fasciitis (CMS/HCC) Morbid (severe) obesity due to excess calories (CMS/HCC) Septic shock (CMS/HCC) Type 2 diabetes mellitus with hyperglycemia, without long-term current use of insulin (CMS/HCC) Respiratory insufficiency POCT GLUCOSE METER UNSOLICITED RESULTS [...] UNSOLICITED RESULTS Routine 07/10/2025 6:22 PM EDT POCT GLUCOSE METER UNSOLICITED RESULTS Routine 07/10/2025 2:17 PM EDT XR ABDOMEN 1 VIEW Routine 07/10/2025 12:03 PM EDT POCT GLUCOSE METER UNSOLICITED RESULTS Routine 07/10/2025 12:00 PM EDT POCT GLUCOSE METER UNSOLICITED RESULTS Routine 07/10/2025 9:50 AM EDT ECG ADULT STAT 07/10/2025 8:42 AM EDT [facility], E/M 30-74 MINUTES Routine 07/10/2025 [...] CO2 MONITORING Routine 07/09/2025 8:00 AM EDT [facility], E/M 30-74 MINUTES Routine 07/09/2025 7:15 AM EDT Necrotizing fasciitis (CMS/HCC) Morbid (severe) obesity due to excess calories (CMS/HCC) Septic shock (CMS/[facility]) Acute respiratory failure with hypoxia POCT GLUCOSE [...] UNSOLICITED RESULTS Routine 07/08/2025 8:51 PM EDT WY DEBRIDEMENT, SKIN, SUB-Q TISSUE,=<20 SQ CM 07/08/2025 [...] PANEL, PLASMA STAT 07/08/2025 6:14 PM EDT [facility], E/M 30-74 MINUTES Routine 07/08/2025 5:58 PM EDT documented in this encounter Results * (ABNORMAL) POCT glucose meter (07/19/2025 12:27 PM EDT) POCT Glucose 197(H) 74 - 99 mg/dL 07/19/2025 5:32 PM EDT [facility] Comment:Accuracy of [...] for testing. Comment 07/19/2025 5:32 PM EDT [facility] Lens Grinder ID Laura Baez 025 5:32 PM EDT [facility] Device ID [id number] 07/19/2025 5:32 PM EDT [facility] Specimen Type POC Capillary 07/19/2025 5:32 PM EDT [facility] Blood Capillary blood specimen / Unknown 07/19/2025 12:27 PM EDT 07/19/2025 5:32 PM EDT us Anne Franco MD LAB POINT OF CARE TEST DOCKED DEVICE UNSOLICITED RESULTS Final Result [facility] [address] [place] [address] * Phosphorus (07/19/2025 4:28 AM EDT) Phosphorus, Plasma 3.6 2.5 - 4.5 mg/dL 07/19/2025 5:03 AM EDT [facility] Blood Venous blood specimen / Unknown Venipuncture / Unknown 07/19/2025 4:28 AM EDT 07/19/2025 4:35 AM EDT Anne Franco MD LAB BLOOD ORDERABLES Sarah l Result [facility] [address] [place] [address] * (ABNORMAL) Magnesium (07/19/2025 4:28 AM EDT) Pathologist [facility] Magnesium, Plasma 1.8(L) 1.9 - 2.4 mg/dL 07/19/2025 5:03 AM EDT [facility] Blood Venous blood specimen / Unknown Venipuncture / Unknown 07/19/2025 4:28 AM EDT 07/19/2025 4:35 AM EDT Anne Franco MD LAB BLOOD ORDERABLES Sarah l Result [facility] [address] [place] [address] * (ABNORMAL) CBC W/O Differential (07/19/2025 4:28 AM EDT) [facility] WBC Count 18.39(H) 3.70 - 10.30 10*3/uL LAB HEMATOLOGY METHOD 07/19/2025 4:51 AM EDT [facility] RBC Count 3.50(L) 3.90 - 5.20 10*6/uL LAB HEMATOLOGY METHOD 07/19/2025 4:51 AM EDT [facility] HGB 9.6(L) 11.2 - 15.7 g/dL LAB HEMATOLOGY METHOD 07/19/2025 4:51 AM EDT [facility] HCT 30.7(L) 34.0 - 45.0 % LAB HEMATOLOGY METHOD 07/19/2025 4:51 AM EDT [facility] Platelet Count 627(H) 155 - 369 10*3/uL LAB HEMATOLOGY METHOD 07/19/2025 4:51 AM EDT [facility] MCV 88 79 - 98 fL LAB HEMATOLOGY METHOD 07/19/2025 4:51 AM EDT [facility] MCH 27.4 26.0 - 32.0 pg LAB HEMATOLOGY METHOD 07/19/2025 4:51 AM EDT [facility] MCHC 31.3 30.7 - 35.5 g/dL LAB HEMATOLOGY METHOD 07/19/2025 4:51 AM EDT [facility] RDW 18.2(H) 11.5 - 14.5 % LAB HEMATOLOGY METHOD 07/19/2025 4:51 AM EDT [facility] MPV 10.2 8.8 - 12.5 fL LAB HEMATOLOGY METHOD 07/19/2025 4:51 AM EDT [facility] nRBC 0.1(H) <=0.0 per 100 WBCs LAB HEMATOLOGY METHOD 07/19/2025 4:51 AM EDT [facility] Blood Venous blood specimen / Unknown Venipuncture / Unknown 07/19/2025 4:28 AM EDT 07/19/2025 4:36 AM EDT us Anne Franco MD LAB BLOOD ORDERABLES Sarah bennett Result [facility] [address] [place] [address] * (ABNORMAL) Basic metabolic panel (07/19/2025 4:28 AM EDT) Pathologist [facility] Glucose, Plasma 153(H) 74 - 99 mg/dL 07/19/2025 5:03 AM EDT [facility] BUN, Plasma 14 7 - 21 mg/dL 07/19/2025 5:03 AM EDT [facility] Creatinine, Plasma 0.73 0.60 - 1.10 mg/dL 07/19/2025 5:03 AM EDT [facility] BUN/Creatinine Ratio 19 07/19/2025 5:03 AM EDT [facility] Sodium, Plasma 137 136 - 145 mmol/L 07/19/2025 5:03 AM EDT [facility] Potassium, Plasma 4.3 3.6 - 4.9 mmol/L 07/19/2025 5:03 AM EDT [facility] Chloride, Plasma 97 97 - 107 mmol/L 07/19/2025 5:03 AM EDT [facility] CO2, Plasma 28 22 - 29 mmol/L 07/19/2025 5:03 AM EDT [facility] Anion Gap 12 6 - 16 mmol/L 07/19/2025 5:03 AM EDT [facility] Total Calcium, Plasma 9.0 8.9 - 10.2 mg/dL 07/19/2025 5:03 AM EDT [facility] eGFRcr 101.0 mL/min/1.7 3m*2 07/19/2025 5:03 AM EDT [facility] Comment:Reported eGFRcr in m L/min/1.73m2 is based the CKD-EPI 2020 equation that does not use a race coefficient. Blood Venous blood specimen / Unknown Venipuncture / Unknown 07/19/2025 4:28 AM EDT 07/19/2025 4:35 AM EDT us Anne Franco MD LAB BLOOD ORDERABLES Sarah bennett Result [facility] [address] [place] [address] * (ABNORMAL) POCT glucose meter (07/18/2025 8:33 PM EDT) POCT Glucose 141(H) 74 - 99 mg/dL 07/18/2025 8:36 PM EDT [facility] Comment:Accuracy of a glucos e result [...] for testing. Comment 07/18/2025 8:36 PM EDT [facility] Lens Grinder ID Zach Martinez 8:36 PM EDT [facility] Device ID [id number] 07/18/2025 8:36 PM EDT [facility] Specimen Type POC Capillary 07/18/2025 8:36 PM EDT [facility] Blood Capillary blood specimen / Unknown 07/18/2025 8:33 PM EDT 07/18/2025 8:36 PM EDT Anne Franco MD LAB POINT OF CARE TEST DOCKED DEVICE UNSOLICITED RESULTS Final Result Performing Organization Address City/[facility]/ZIP Co de Phone Number [facility] [address] [place] [address] * (ABNORMAL) POCT glucose meter (07/18/2025 6:07 PM EDT) [facility] POCT Glucose 222(H) 74 - 99 mg/dL [...] for testing. Comment 07/18/2025 6:08 PM EDT [facility] Lens Grinder ID Monique Jacques 6:08 PM EDT [facility] Device ID [id number] 07/18/2025 6:08 PM EDT [facility] Specimen Type POC Capillary 07/18/2025 6:08 PM EDT [facility] Blood Capillary blood specimen / Unknown 07/18/2025 6:07 PM EDT 07/18/2025 6:08 PM EDT Anne Franco MD LAB POINT OF CARE TEST DOCKED DEVICE UNSOLICITED RESULTS Final Result Performing Organization Address City/[facility]/ZIP Co de Phone Number [facility] [address] [place] [address] * (ABNORMAL) POCT glucose meter (07/18/2025 12:36 PM EDT) [facility] POCT Glucose 151(H) 74 - 99 mg/dL [...] 07/18/2025 12:38 PM EDT [facility] Lens Grinder ID Laura Baez 025 12:38 PM EDT [facility] Device ID [id number] 07/18/2025 12:38 PM EDT [facility] Specimen Type POC Capillary 07/18/2025 12:38 PM EDT [facility] Blood Capillary blood specimen / Unknown 07/18/2025 12:36 PM EDT 07/18/2025 12:38 PM EDT Anne Franco MD LAB POINT OF CARE TEST DOCKED DEVICE UNSOLICITED RESULTS Final Result [facility] [address] [place] [address] * (ABNORMAL) POCT glucose meter (07/18/2025 8:39 AM EDT) [facility] POCT Glucose 149(H) 74 - 99 mg/dL 07/18/2025 8:41 AM EDT [facility] Comment:Accuracy of [...] for testing. Comment 07/18/2025 8:41 AM EDT [facility] Lens Grinder ID Laura Baez 025 8:41 AM EDT [facility] Device ID [id number] 07/18/2025 8:41 AM EDT [facility] Specimen Type POC Capillary 07/18/2025 8:41 AM EDT [facility] Blood Capillary blood specimen / Unknown 07/18/2025 8:39 AM EDT 07/18/2025 8:41 AM EDT us Anne Franco MD LAB POINT OF CARE TEST DOCKED DEVICE UNSOLICITED RESULTS Final Result [facility] [address] [place] [address] * (ABNORMAL) Basic metabolic panel (07/18/2025 6:03 AM EDT) Pathologist [facility] Glucose, Plasma 163(H) 74 - 99 mg/dL 07/18/2025 6:45 AM EDT [facility] BUN, Plasma 11 7 - 21 mg/dL 07/18/2025 6:45 AM EDT [facility] Creatinine, Plasma 0.65 0.60 - 1.10 mg/dL 07/18/2025 6:45 AM EDT [facility] BUN/Creatinine Ratio 17 07/18/2025 6:45 AM EDT [facility] Sodium, Plasma 138 136 - 145 mmol/L 07/18/2025 6:45 AM EDT [facility] Potassium, Plasma 3.8 3.6 - 4.9 mmol/L 07/18/2025 6:45 AM EDT [facility] Chloride, Plasma 99 97 - 107 mmol/L 07/18/2025 6:45 AM EDT [facility] CO2, Plasma 29 22 - 29 mmol/L 07/18/2025 6:45 AM EDT [facility] Anion Gap 10 6 - 16 mmol/L 07/18/2025 6:45 AM EDT [facility] Total Calcium, Plasma 8.5(L) 8.9 - 10.2 mg/dL 07/18/2025 6:45 AM EDT [facility] eGFRcr 108.1 mL/min/1.7 3m*2 07/18/2025 6:45 AM EDT [facility] Comment:Reported eGFRcr in m L/min/1.73m2 is based the CKD-EPI 2020 equation that does not use a race coefficient. Blood Venous blood specimen / Unknown Venipuncture / Unknown 07/18/2025 6:03 AM EDT 07/18/2025 6:12 AM EDT us Anne Franco MD LAB BLOOD ORDERABLES Sarah sabrina Result [facility] [address] [place] [address] * (ABNORMAL) CBC W/O Differential (07/18/2025 6:03 AM EDT) WBC Count 16.76(H) 3.70 - 10.30 10*3/uL LAB HEMATOLOGY METHOD 07/18/2025 6:25 AM EDT [facility] RBC Count 3.25(L) 3.90 - 5.20 10*6/uL LAB HEMATOLOGY METHOD 07/18/2025 6:25 AM EDT [facility] HGB 9.1(L) 11.2 - 15.7 g/dL LAB HEMATOLOGY METHOD 07/18/2025 6:25 AM EDT [facility] HCT 28.8(L) 34.0 - 45.0 % LAB HEMATOLOGY METHOD 07/18/2025 6:25 AM EDT [facility] Platelet Count 523(H) 155 - 369 10*3/uL LAB HEMATOLOGY METHOD 07/18/2025 6:25 AM EDT [facility] MCV 89 79 - 98 fL LAB HEMATOLOGY METHOD 07/18/2025 6:25 AM EDT [facility] MCH 28.0 26.0 - 32.0 pg LAB HEMATOLOGY METHOD 07/18/2025 6:25 AM EDT [facility] MCHC 31.6 30.7 - 35.5 g/dL LAB HEMATOLOGY METHOD 07/18/2025 6:25 AM EDT [facility] RDW 17.6(H) 11.5 - 14.5 % LAB HEMATOLOGY METHOD 07/18/2025 6:25 AM EDT [facility] MPV 10.3 8.8 - 12.5 fL LAB HEMATOLOGY METHOD 07/18/2025 6:25 AM EDT [facility] nRBC 0.0 <=0.0 per 100 WBCs LAB HEMATOLOGY METHOD 07/18/2025 6:25 AM EDT [facility] Blood Venous blood specimen / Unknown Venipuncture / Unknown 07/18/2025 6:03 AM EDT 07/18/2025 6:12 AM EDT Anne Franco MD LAB BLOOD ORDERABLES Sarah l Result Performing Organization Address City/[facility]/ZIP Co de Phone Number [facility] [address] [place] [address] * (ABNORMAL) POCT glucose meter (07/17/2025 10:33 [...] Comment 07/17/2025 10:35 PM EDT [facility] Lens Grinder ID Nipper, 07/17/2025 10:35 PM EDT [facility] Device ID [id number] 07/17/2025 10:35 PM EDT [facility] Specimen Type POC Capillary 07/17/2025 10:35 PM EDT [facility] Blood Capillary blood specimen / Unknown 07/17/2025 10:33 PM EDT 07/17/2025 10:35 PM EDT Anne Franco MD LAB POINT OF CARE TEST DOCKED DEVICE UNSOLICITED RESULTS Final Result Performing Organization Address City/[facility]/ZIP Co de Phone Number [facility] [address] [place] [address] * PERIPHERAL IV (SMART[employer] LINK) (07/17/2025 5:14 PM EDT) Narrative Arturo Mancilla, NAHID - 07/17/2025 5:14 PM EDT Arturo Mancilla [...] IV site covered with: Transparent semipermeable dressing us Anne Franco MD IV THERAPY ORDERABLES Fin al Result * (ABNORMAL) POCT glucose meter (07/17/2025 5:10 PM EDT) POCT Glucose 115(H) 74 - 99 mg/dL 07/17/2025 5:12 PM EDT [facility] Comment:Accuracy of a [...] Comment 07/17/2025 5:12 PM EDT [facility] Lens Grinder ID Monique [email or web address] 5:12 PM EDT [facility] Device ID [id number] 07/17/2025 5:12 PM EDT [facility] Specimen Type POC Capillary 07/17/2025 5:12 PM EDT [facility] Blood Capillary blood specimen / Unknown 07/17/2025 5:10 PM EDT 07/17/2025 5:12 PM EDT us Anne Franco MD LAB POINT OF CARE TEST DOCKED DEVICE UNSOLICITED RESULTS Final Result [facility] [address] [place] [id number] * (ABNORMAL) POCT glucose meter (07/17/2025 12:06 [...] Comment 07/17/2025 12:07 PM EDT [facility] Lens Grinder ID Josi Ann 12:07 PM EDT [facility] Device ID [id number] 07/17/2025 12:07 PM EDT [facility] Specimen Type POC Capillary 07/17/2025 12:07 PM EDT [facility] Blood Capillary blood specimen / Unknown 07/17/2025 12:06 PM EDT 07/17/2025 12:07 PM EDT us Anne Franco MD LAB POINT OF CARE TEST DOCKED DEVICE UNSOLICITED RESULTS Final Result Performing Organization Address City/State/[facility] Co de Phone Number [facility] [address] [place] [place] [address] * [place] Extremity Limited MSK or Soft [...] Davide Allan MD on 07/17/2025 12:38 PM Inderjit AMOS IMG US PROCEDURES Final Result * Methicillin Resistant Staphylococcus aureus (MRSA) by PCR (07/17/2025 10:14 AM EDT) Methicillin Resistant Staphylococcus aureus (MRSA) by PCR Not Detected Not Detected 07/17/2025 12:11 PM EDT [facility] Swab Both anterior nares / Unknown Non-blood Collection / Unknown 07/17/2025 10:14 AM EDT 07/17/2025 10:33 AM EDT Narrative [facility] - 07/17/2025 12:11 PM EDT This test is FDA approved for use with nares swab specimens using the eSwabs. This test is used for clinical purposes. It should not be regarded as investigational or for research. This laboratory is certified under the Clinical Laboratory improvement Amendments of 1988 (CLIA-88 as qualified to perform high complexity clinical laboratory testing. Inderjit [facility] LAB MICROBIOLOGY - GENERAL ORDER LUANNE Final Result [facility] [address] [place] [address] * (ABNORMAL) POCT glucose meter (07/17/2025 9:35 AM EDT) POCT Glucose 139(H) 74 - 99 mg/dL 07/17/2025 9:37 AM EDT [facility] Comment:Accuracy of a glucos e result [...] Comment 07/17/2025 9:37 AM EDT [facility] Lens Grinder ID Josi Ann 9:37 AM EDT [facility] Device ID [id number] 07/17/2025 9:37 AM EDT [facility] Specimen Type POC Capillary 07/17/2025 9:37 AM EDT [facility] Blood Capillary blood specimen / Unknown 07/17/2025 9:35 AM EDT 07/17/2025 9:37 AM EDT us Anne Franco MD LAB POINT OF CARE TEST DOCKED DEVICE UNSOLICITED RESULTS Final Result [facility] [address] [place] [id number] * (ABNORMAL) Basic metabolic panel (07/17/2025 5:20 AM EDT) Glucose, Plasma 140(H) 74 - 99 mg/dL 07/17/2025 5:56 AM EDT [facility] BUN, Plasma 8 7 - 21 mg/dL 07/17/2025 5:56 AM EDT [facility] Creatinine, Plasma 0.59(L) 0.60 - 1.10 mg/dL 07/17/2025 5:56 AM EDT [facility] BUN/Creatinine Ratio 14 07/17/2025 5:56 AM EDT [facility] Sodium, Plasma 139 136 - 145 mmol/L 07/17/2025 5:56 AM EDT [facility] Potassium, Plasma 3.8 3.6 - 4.9 mmol/L 07/17/2025 5:56 AM EDT [facility] Chloride, Plasma 97 97 - 107 mmol/L 07/17/2025 5:56 AM EDT [facility] CO2, Plasma 31(H) 22 - 29 mmol/L 07/17/2025 5:56 AM EDT [facility] Anion Gap 11 6 - 16 mmol/L 07/17/2025 5:56 AM EDT [facility] Total Calcium, Plasma 8.6(L) 8.9 - 10.2 mg/dL 07/17/2025 5:56 AM EDT [facility] eGFRcr 110.6 mL/min/1.7 3m*2 07/17/2025 5:56 AM EDT [facility] Comment:Reported eGFRcr in m L/min/1.73m2 is based the CKD-EPI 2020 equation that does not use a race coefficient. Blood Venous blood specimen / Unknown Venipuncture / Unknown 07/17/2025 5:20 AM EDT 07/17/2025 5:27 AM EDT us Anne Franco MD LAB BLOOD ORDERABLES Sarah l Result [facility] [address] [place] [address] * Phosphorus, Plasma (07/17/2025 5:20 AM EDT) Phosphorus, Plasma 3.0 2.5 - 4.5 mg/dL 07/17/2025 5:56 AM EDT [facility] Blood Venous blood specimen / Unknown Venipuncture / Unknown 07/17/2025 5:20 AM EDT 07/17/2025 5:27 AM EDT us Anne Franco MD LAB BLOOD ORDERABLES Sarah l Result Performing Organization Address City/[facility]/ZIP Co de Phone Number [facility] [address] [place] [address] * (ABNORMAL) Magnesium, Plasma (07/17/2025 5:20 AM EDT) Magnesium, Plasma 1.8(L) 1.9 - 2.4 mg/dL 07/17/2025 5:56 AM EDT [facility] Blood Venous blood specimen / Unknown Venipuncture / Unknown 07/17/2025 5:20 AM EDT 07/17/2025 5:27 AM EDT us Anne Franco MD LAB BLOOD ORDERABLES Sarah l Result Performing Organization Address City/[facility]/ZIP Co de Phone Number [facility] [address] [place] [address] * (ABNORMAL) CBC W/O Differential (07/17/2025 5:20 AM EDT) [facility] Signature WBC Count 22.29(H) 3.70 - 10.30 10*3/uL LAB HEMATOLOGY METHOD 07/17/2025 5:37 AM EDT [facility] RBC Count 3.36(L) 3.90 - 5.20 10*6/uL LAB HEMATOLOGY METHOD 07/17/2025 5:37 AM EDT [facility] HGB 9.2(L) 11.2 - 15.7 g/dL LAB HEMATOLOGY METHOD 07/17/2025 5:37 AM EDT [facility] HCT 29.4(L) 34.0 - 45.0 % LAB HEMATOLOGY METHOD 07/17/2025 5:37 AM EDT [facility] Platelet Count 484(H) 155 - 369 10*3/uL LAB HEMATOLOGY METHOD 07/17/2025 5:37 AM EDT [facility] MCV 88 79 - 98 fL LAB HEMATOLOGY METHOD 07/17/2025 5:37 AM EDT [facility] MCH 27.4 26.0 - 32.0 pg LAB HEMATOLOGY METHOD 07/17/2025 5:37 AM EDT [facility] MCHC 31.3 30.7 - 35.5 g/dL LAB HEMATOLOGY METHOD 07/17/2025 5:37 AM EDT [facility] RDW 17.3(H) 11.5 - 14.5 % LAB HEMATOLOGY METHOD 07/17/2025 5:37 AM EDT [facility] MPV 10.4 8.8 - 12.5 fL LAB HEMATOLOGY METHOD 07/17/2025 5:37 AM EDT [facility] nRBC 0.1(H) <=0.0 per 100 WBCs LAB HEMATOLOGY METHOD 07/17/2025 5:37 AM EDT [facility] Blood Venous blood specimen / Unknown Venipuncture / Unknown 07/17/2025 5:20 AM EDT 07/17/2025 5:27 AM EDT Anne Franco MD LAB BLOOD ORDERABLES Sarah l Result [facility] [address] [place] [address] * (ABNORMAL) POCT glucose meter (07/16/2025 8:24 PM EDT) [facility] POCT Glucose 162(H) 74 - 99 mg/dL [...] Comment 07/16/2025 8:26 PM EDT [facility] Lens Grinder ID Lacie Marcelo 07/16/20 8:26 PM EDT [facility]ARE LAB Device ID [id number] 07/16/2025 8:26 PM EDT [facility] Specimen Type POC Capillary 07/16/2025 8:26 PM EDT [facility] Blood Capillary blood specimen / Unknown 07/16/2025 8:24 PM EDT 07/16/2025 8:26 PM EDT Anne Franco MD LAB POINT OF CARE TEST DOCKED DEVICE UNSOLICITED RESULTS Final Result [facility] [address] [place] [address] * (ABNORMAL) POCT glucose meter (07/16/2025 5:34 PM EDT) [facility] POCT Glucose 190(H) 74 - 99 mg/dL [...] 07/16/2025 5:36 PM EDT [facility] Lens Grinder ID Diego Munroe 07/16/20 5:36 PM EDT [facility] Device ID [id number] 07/16/2025 5:36 PM EDT [facility] Specimen Type POC Capillary 07/16/2025 5:36 PM EDT [facility] Blood Capillary blood specimen / Unknown 07/16/2025 5:34 PM EDT 07/16/2025 5:36 PM EDT Anne Franco MD LAB POINT OF CARE TEST DOCKED DEVICE UNSOLICITED RESULTS Final Result Performing Organization Address City/[facility] Co de Phone Number [facility] [address] [place] [address] * (ABNORMAL) POCT glucose meter (07/16/2025 12:06 PM EDT) [facility] POCT Glucose 150(H) 74 - 99 mg/dL [...] 07/16/2025 12:08 PM EDT [facility] Lens Grinder ID Diego Munroe 07/16/20 12:08 PM EDT [facility] Device ID [id number] 07/16/2025 12:08 PM EDT [facility] Specimen Type POC Capillary 07/16/2025 12:08 PM EDT [facility] Blood Capillary blood specimen / Unknown 07/16/2025 12:06 PM EDT 07/16/2025 12:08 PM EDT us Anne Franco MD LAB POINT OF CARE TEST DOCKED DEVICE UNSOLICITED RESULTS Final Result Performing Organization Address City/[facility] Co de Phone Number [facility] [address] [place] [address] * XR Chest 1 View (07/16/2025 11:25 [...] Moy Khoury MD on 07/16/2025 12:53 PM Anne Franco MD IMG XR PROCEDURES [...] - 99 mg/dL 07/16/2025 8:24 AM EDT [facility] Comment:Accuracy of a [...] for testing. Comment 07/16/2025 8:24 AM EDT [facility] Lens Grinder ID Diego Munroe 07/16/20 8:24 AM EDT [facility] Device ID [id number] 07/16/2025 8:24 AM EDT [facility] Specimen Type POC Capillary 07/16/2025 8:24 AM EDT [facility] Blood Capillary blood specimen / Unknown 07/16/2025 8:22 AM EDT 07/16/2025 8:24 AM EDT us Anne Franco MD LAB POINT OF CARE TEST DOCKED DEVICE UNSOLICITED RESULTS Final Result Performing Organization Address City/State/[facility] Co de Phone Number [facility] [address] [place] [address] * Phosphorus (07/16/2025 5:25 AM EDT) Phosphorus, Plasma 2.8 2.5 - 4.5 mg/dL 07/16/2025 7:12 AM EDT [facility] Blood Venous blood specimen / Unknown Venipuncture / Unknown 07/16/2025 5:25 AM EDT 07/16/2025 5:33 AM EDT us Anne Franco MD LAB BLOOD ORDERABLES Sarah l Result [facility] [address] [place] [address] * (ABNORMAL) Magnesium (07/16/2025 5:25 AM EDT) Pathologist [facility] Magnesium, Plasma 1.8(L) 1.9 - 2.4 mg/dL 07/16/2025 7:12 AM EDT [facility] Blood Venous blood specimen / Unknown Venipuncture / Unknown 07/16/2025 5:25 AM EDT 07/16/2025 5:33 AM EDT us Anne Franco MD LAB BLOOD ORDERABLES Sarah l Result Performing Organization Address [facility]/ZIP Co de Phone Number [facility] [address] [place] [address] * (ABNORMAL) Basic metabolic panel (07/16/2025 5:25 AM EDT) Glucose, Plasma 149(H) 74 - 99 mg/dL 07/16/2025 6:01 AM EDT [facility] BUN, Plasma 9 7 - 21 mg/dL 07/16/2025 6:01 AM EDT [facility] Creatinine, Plasma 0.48(L) 0.60 - 1.10 mg/dL 07/16/2025 6:01 AM EDT [facility] BUN/Creatinine Ratio 19 07/16/2025 6:01 AM EDT [facility] Sodium, Plasma 140 136 - 145 mmol/L 07/16/2025 6:01 AM EDT [facility] Potassium, Plasma 3.4(L) 3.6 - 4.9 mmol/L 07/16/2025 6:01 AM EDT [facility] Chloride, Plasma 99 97 - 107 mmol/L 07/16/2025 6:01 AM EDT [facility] CO2, Plasma 31(H) 22 - 29 mmol/L 07/16/2025 6:01 AM EDT [facility] Anion Gap 10 6 - 16 mmol/L 07/16/2025 6:01 AM EDT [facility] Total Calcium, Plasma 8.6(L) 8.9 - 10.2 mg/dL 07/16/2025 6:01 AM EDT [facility] eGFRcr 116.3 mL/min/1.7 3m*2 07/16/2025 6:01 AM EDT [facility] Comment:Reported eGFRcr in m L/min/1.73m2 is based the CKD-EPI 2020 equation that does not use a race coefficient. Blood Venous blood specimen / Unknown Venipuncture / Unknown 07/16/2025 5:25 AM EDT 07/16/2025 5:33 AM EDT us Anne Franco MD LAB BLOOD ORDERABLES Sarah bennett Result [facility] [address] [place] [address] * (ABNORMAL) CBC W/O Differential (07/16/2025 5:25 AM EDT) WBC Count 22.22(H) 3.70 - 10.30 10*3/uL LAB HEMATOLOGY METHOD 07/16/2025 5:41 AM EDT [facility] RBC Count 3.30(L) 3.90 - 5.20 10*6/uL LAB HEMATOLOGY METHOD 07/16/2025 5:41 AM EDT [facility] HGB 8.9(L) 11.2 - 15.7 g/dL LAB HEMATOLOGY METHOD 07/16/2025 5:41 AM EDT [facility] HCT 28.9(L) 34.0 - 45.0 % LAB HEMATOLOGY METHOD 07/16/2025 5:41 AM EDT [facility] Platelet Count 376(H) 155 - 369 10*3/uL LAB HEMATOLOGY METHOD 07/16/2025 5:41 AM EDT [facility] MCV 88 79 - 98 fL LAB HEMATOLOGY METHOD 07/16/2025 5:41 AM EDT [facility] MCH 27.0 26.0 - 32.0 pg LAB HEMATOLOGY METHOD 07/16/2025 5:41 AM EDT [facility] MCHC 30.8 30.7 - 35.5 g/dL LAB HEMATOLOGY METHOD 07/16/2025 5:41 AM EDT [facility] RDW 17.2(H) 11.5 - 14.5 % LAB HEMATOLOGY METHOD 07/16/2025 5:41 AM EDT [facility] MPV 10.3 8.8 - 12.5 fL LAB HEMATOLOGY METHOD 07/16/2025 5:41 AM EDT [facility] nRBC 0.1(H) <=0.0 per 100 WBCs LAB HEMATOLOGY METHOD 07/16/2025 5:41 AM EDT [facility] Blood Venous blood specimen / Unknown Venipuncture / Unknown 07/16/2025 5:25 AM EDT 07/16/2025 5:33 AM EDT us Anne Franco MD LAB BLOOD ORDERABLES Sarah bennett Result [facility] [address] [place] [address] * (ABNORMAL) POCT glucose meter (07/15/2025 9:38 [...] Comment 07/15/2025 9:39 PM EDT [facility] Lens Grinder ID Yessenia Ramirez 9:39 PM EDT [facility]ALTH[facility]ARE LAB Device ID [id number] 07/15/2025 9:39 PM EDT [facility] Specimen Type POC Capillary 07/15/2025 9:39 PM EDT [facility] Blood Capillary blood specimen / Unknown 07/15/2025 9:38 PM EDT 07/15/2025 9:39 PM EDT us Anne Franco MD LAB POINT OF CARE TEST DOCKED DEVICE UNSOLICITED RESULTS Final Result Performing Organization Address City/[facility]/ZIP Co de Phone Number [facility] [address] [place] [address] * (ABNORMAL) POCT glucose meter (07/15/2025 6:03 PM EDT) [facility] POCT Glucose 234(H) 74 - 99 mg/dL [...] Comment 07/15/2025 6:04 PM EDT [facility] Lens Grinder ID BrennanVenessa 07/15/2025 6:04 PM EDT [facility] LAB Device ID [id number] 07/15/2025 6:04 PM EDT [facility] Specimen Type POC Capillary 07/15/2025 6:04 PM EDT [facility] Blood Capillary blood specimen / Unknown 07/15/2025 6:03 PM EDT 07/15/2025 6:04 PM EDT Anne Franco MD LAB POINT OF CARE TEST DOCKED DEVICE UNSOLICITED RESULTS Final Result Performing Organization Address City/[facility]/ZIP Co de Phone Number [facility] [address] [place] [address] * (ABNORMAL) POCT glucose meter (07/15/2025 12:38 PM EDT) [facility] POCT Glucose 153(H) 74 - 99 mg/dL [...] for testing. Comment 07/15/2025 12:40 PM EDT [facility] Lens Grinder ID BrennanVenessa 07/15/2025 12:40 PM EDT [facility] LAB Device ID [id number] 07/15/2025 12:40 PM EDT [facility] Specimen Type POC Capillary 07/15/2025 12:40 PM EDT [facility] Blood Capillary blood specimen / Unknown 07/15/2025 12:38 PM EDT 07/15/2025 12:40 PM EDT us Anne Franco MD LAB POINT OF CARE TEST DOCKED DEVICE UNSOLICITED RESULTS Final Result Performing Organization Address City/[facility] Co de Phone Number [facility] [address] [place] [address] * (ABNORMAL) POCT glucose meter (07/15/2025 8:38 AM EDT) [facility] POCT Glucose 132(H) 74 - 99 mg/dL [...] for testing. Comment 07/15/2025 8:39 AM EDT [facility] Lens Grinder ID Brennan, Venessa 07/15/2025 8:39 AM EDT [facility] Device ID [id number] 07/15/2025 8:39 AM EDT [facility] Specimen Type POC Capillary 07/15/2025 8:39 AM EDT [facility] Blood Capillary blood specimen / Unknown 07/15/2025 8:38 AM EDT 07/15/2025 8:39 AM EDT us Anne Franco MD LAB POINT OF CARE TEST DOCKED DEVICE UNSOLICITED RESULTS Final Result Performing Organization Address [facility] de Phone Number [facility] [address] [place] [address] * (ABNORMAL) Phosphorus (07/15/2025 4:50 AM EDT) [facility] Phosphorus, Plasma 2.3(L) 2.5 - 4.5 mg/dL 07/15/2025 7:33 AM EDT [facility] Blood Venous blood specimen / Unknown Venipuncture / Unknown 07/15/2025 4:50 AM EDT 07/15/2025 4:59 AM EDT Anne Franco MD LAB BLOOD ORDERABLES Sarah l Result Performing Organization Address City/[facility]/ZIP Co de Phone Number [facility] [address] [place] [address] * Magnesium (07/15/2025 4:50 AM EDT) Magnesium, Plasma 1.9 1.9 - 2.4 mg/dL 07/15/2025 7:33 AM EDT [facility] Blood Venous blood specimen / Unknown Venipuncture / Unknown 07/15/2025 4:50 AM EDT 07/15/2025 4:59 AM EDT Anne Franco MD LAB BLOOD ORDERABLES Sarah l Result Performing Organization Address City/[facility]/ZIP Co de Phone Number [facility] [address] [place] [address] * (ABNORMAL) Basic metabolic panel (07/15/2025 4:50 AM EDT) Glucose, Plasma 150(H) 74 - 99 mg/dL 07/15/2025 5:31 AM EDT [facility] BUN, Plasma 11 7 - 21 mg/dL 07/15/2025 5:31 AM EDT [facility] Creatinine, Plasma 0.54(L) 0.60 - 1.10 mg/dL 07/15/2025 5:31 AM EDT [facility] BUN/Creatinine Ratio 20 07/15/2025 5:31 AM EDT [facility] Sodium, Plasma 136 136 - 145 mmol/L 07/15/2025 5:31 AM EDT [facility] Potassium, Plasma 4.1 3.6 - 4.9 mmol/L 07/15/2025 5:31 AM EDT [facility] Chloride, Plasma 95(L) 97 - 107 mmol/L 07/15/2025 5:31 AM EDT [facility] CO2, Plasma 32(H) 22 - 29 mmol/L 07/15/2025 5:31 AM EDT [facility] Anion Gap 9 6 - 16 mmol/L 07/15/2025 5:31 AM EDT [facility] Total Calcium, Plasma 8.8(L) 8.9 - 10.2 mg/dL 07/15/2025 5:31 AM EDT [facility] eGFRcr 113.0 mL/min/1.7 3m*2 07/15/2025 5:31 AM EDT [facility] Comment:Reported eGFRcr in m L/min/1.73m2 is based the CKD-EPI 2020 equation that does not use a race coefficient. Blood Venous blood specimen / Unknown Venipuncture / Unknown 07/15/2025 4:50 AM EDT 07/15/2025 4:59 AM EDT Anne Franco MD LAB BLOOD ORDERABLES Sarah bennett Result [facility] [address] [place] [address] * (ABNORMAL) POCT glucose meter (07/14/2025 7:57 PM EDT) [facility] POCT Glucose 175(H) 74 - 99 mg/dL [...] Comment 07/14/2025 7:58 PM EDT [facility] Lens Grinder ID Bernard Chirinos 07/14/20 7:58 PM EDT HEALTHCARE LAB Device ID [id number] 07/14/2025 7:58 PM EDT [facility] Specimen Type POC Capillary 07/14/2025 7:58 PM EDT [facility] Blood Capillary blood specimen / Unknown 07/14/2025 7:57 PM EDT 07/14/2025 7:58 PM EDT Anne Franco MD LAB POINT OF CARE TEST DOCKED DEVICE UNSOLICITED RESULTS Final Result Performing Organization Address [facility] Co de Phone Number [facility] [address] [place] [address] * (ABNORMAL) POCT glucose meter (07/14/2025 4:56 PM EDT) Pathologist [facility] POCT Glucose 154(H) 74 - 99 mg/dL [...] for testing. Comment 07/14/2025 4:58 PM EDT [facility] Lens Grinder ID Riana Higgins 07/14/2025 4:58 PM EDT [facility] Device ID [id number] 07/14/2025 4:58 PM EDT [facility] Specimen Type POC Capillary 07/14/2025 4:58 PM EDT [facility] Blood Capillary blood specimen / Unknown 07/14/2025 4:56 PM EDT 07/14/2025 4:58 PM EDT Anne Franco MD LAB POINT OF CARE TEST DOCKED DEVICE UNSOLICITED RESULTS Final Result Performing Organization Address City/[facility] Co de Phone Number [facility] [address] [place] [address] * (ABNORMAL) POCT glucose meter (07/14/2025 12:38 PM EDT) Pathologist [facility] POCT Glucose 143(H) 74 - 99 mg/dL [...] Comment 07/14/2025 12:39 PM EDT [facility] Lens Grinder ID Laura Baez 025 12:39 PM EDT [facility] Device ID [id number] 07/14/2025 12:39 PM EDT [facility] Specimen Type POC Capillary 07/14/2025 12:39 PM EDT [facility] Blood Capillary blood specimen / Unknown 07/14/2025 12:38 PM EDT 07/14/2025 12:39 PM EDT us Anne Franco MD LAB POINT OF CARE TEST DOCKED DEVICE UNSOLICITED RESULTS Final Result [facility] [address] [place] [address] * (ABNORMAL) Basic metabolic panel (07/14/2025 9:36 AM EDT) Glucose, Plasma 191(H) 74 - 99 mg/dL 07/14/2025 10:15 AM EDT [facility] BUN, Plasma 16 7 - 21 mg/dL 07/14/2025 10:15 AM EDT [facility] Creatinine, Plasma 0.61 0.60 - 1.10 mg/dL 07/14/2025 10:15 AM EDT [facility] BUN/Creatinine Ratio 26 07/14/2025 10:15 AM EDT [facility] Sodium, Plasma 138 136 - 145 mmol/L 07/14/2025 10:15 AM EDT [facility] Potassium, Plasma 3.2(L) 3.6 - 4.9 mmol/L 07/14/2025 10:15 AM EDT [facility] Chloride, Plasma 96(L) 97 - 107 mmol/L 07/14/2025 10:15 AM EDT [facility] CO2, Plasma 33(H) 22 - 29 mmol/L 07/14/2025 10:15 AM EDT [facility] Anion Gap 9 6 - 16 mmol/L 07/14/2025 10:15 AM EDT [facility] Total Calcium, Plasma 8.7(L) 8.9 - 10.2 mg/dL 07/14/2025 10:15 AM EDT [facility] eGFRcr 109.8 mL/min/1.7 3m*2 07/14/2025 10:15 AM EDT [facility] Comment:Reported eGFRcr in m L/min/1.73m2 is based the CKD-EPI 2020 equation that does not use a race coefficient. Blood Venous blood specimen / Unknown Venipuncture / Unknown 07/14/2025 9:36 AM EDT 07/14/2025 9:44 AM EDT us Anne Franco MD LAB BLOOD ORDERABLES Sarah l Result Performing Organization Address [facility] Co de Phone Number [facility] [address] [place] [address] * (ABNORMAL) Magnesium, Plasma (07/14/2025 9:36 AM EDT) Magnesium, Plasma 1.7(L) 1.9 - 2.4 mg/dL 07/14/2025 10:15 AM EDT [facility] Blood Venous blood specimen / Unknown Venipuncture / Unknown 07/14/2025 9:36 AM EDT 07/14/2025 9:44 AM EDT us Anne Franco MD LAB BLOOD ORDERABLES Sarah l Result Performing Organization Address City/[facility]/ZIP Co de Phone Number [facility] [address] [place] [address] * (ABNORMAL) Phosphorus, Plasma (07/14/2025 9:36 AM EDT) Phosphorus, Plasma 2.2(L) 2.5 - 4.5 mg/dL 07/14/2025 10:15 AM EDT [facility] Blood Venous blood specimen / Unknown Venipuncture / Unknown 07/14/2025 9:36 AM EDT 07/14/2025 9:44 AM EDT us Anne Franco MD LAB BLOOD ORDERABLES Sarah sabrina Result [facility] [address] [place] [address] * (ABNORMAL) CBC W/O Differential (07/14/2025 9:36 AM EDT) WBC Count 21.20(H) 3.70 - 10.30 10*3/uL LAB HEMATOLOGY METHOD 07/14/2025 9:52 AM EDT [facility] RBC Count 3.37(L) 3.90 - 5.20 10*6/uL LAB HEMATOLOGY METHOD 07/14/2025 9:52 AM EDT [facility] HGB 9.2(L) 11.2 - 15.7 g/dL LAB HEMATOLOGY METHOD 07/14/2025 9:52 AM EDT [facility] HCT 29.4(L) 34.0 - 45.0 % LAB HEMATOLOGY METHOD 07/14/2025 9:52 AM EDT [facility] Platelet Count 314 155 - 369 10*3/uL LAB HEMATOLOGY METHOD 07/14/2025 9:52 AM EDT [facility] MCV 87 79 - 98 fL LAB HEMATOLOGY METHOD 07/14/2025 9:52 AM EDT [facility] MCH 27.3 26.0 - 32.0 pg LAB HEMATOLOGY METHOD 07/14/2025 9:52 AM EDT [facility] MCHC 31.3 30.7 - 35.5 g/dL LAB HEMATOLOGY METHOD 07/14/2025 9:52 AM EDT [facility] RDW 17.2(H) 11.5 - 14.5 % LAB HEMATOLOGY METHOD 07/14/2025 9:52 AM EDT [facility] MPV 10.2 8.8 - 12.5 fL LAB HEMATOLOGY METHOD 07/14/2025 9:52 AM EDT [facility] nRBC 0.1(H) <=0.0 per 100 WBCs LAB HEMATOLOGY METHOD 07/14/2025 9:52 AM EDT [facility] Blood Venous blood specimen / Unknown Venipuncture / Unknown 07/14/2025 9:36 AM EDT 07/14/2025 9:44 AM EDT us Anne Franco MD LAB BLOOD ORDERABLES Sarah l Result Performing Organization Address [place]/[facility] Co de Phone Number [facility] [address] [place] [address] * (ABNORMAL) POCT glucose meter (07/14/2025 8:39 [...] for testing. Comment 07/14/2025 8:41 AM EDT [facility] Lens Grinder ID Laura Baez [id number] 8:41 AM EDT [facility] Device ID [id number] 07/14/2025 8:41 AM EDT [facility] Specimen Type POC Capillary 07/14/2025 8:41 AM EDT [facility] Blood Capillary blood specimen / Unknown 07/14/2025 8:39 AM EDT 07/14/2025 8:41 AM EDT us Anne Franco MD LAB POINT OF CARE TEST DOCKED DEVICE UNSOLICITED RESULTS Final Result Performing Organization Address [place]/[facility] [facility] Co de Phone Number [facility] [address] [place] [address] * (ABNORMAL) POCT glucose meter (07/14/2025 6:18 [...] Comment 07/14/2025 6:20 AM EDT [facility] Lens Grinder ID Rita Alejandro 6:20 AM EDT [facility] Device ID [id number] 07/14/2025 6:20 AM EDT [facility] Specimen Type POC Capillary 07/14/2025 6:20 AM EDT [facility] Blood Capillary blood specimen / Unknown 07/14/2025 6:18 AM EDT 07/14/2025 6:20 AM EDT us Anne Franco MD LAB POINT OF CARE TEST DOCKED DEVICE UNSOLICITED RESULTS Final Result Performing Organization Address [facility] Co de Phone Number [facility] [address] [place] [address] * (ABNORMAL) POCT glucose meter (07/13/2025 9:18 PM EDT) [facility] POCT Glucose 196(H) 74 - 99 mg/dL [...] Comment 07/13/2025 9:19 PM EDT [facility]ARE [facility] Lens Grinder ID Yenny Tong 025 9:19 PM EDT [facility] Device ID [id number] 07/13/2025 9:19 PM EDT [facility] Specimen Type POC Capillary 07/13/2025 9:19 PM EDT [facility] Blood Capillary blood specimen / Unknown 07/13/2025 9:18 PM EDT 07/13/2025 9:19 PM EDT us Anne Franco MD LAB POINT OF CARE TEST DOCKED DEVICE UNSOLICITED RESULTS Final Result Performing Organization Address City/[facility]/ZIP Co de Phone Number [facility] [address] [place] [address] * (ABNORMAL) POCT glucose meter (07/13/2025 6:01 PM EDT) [facility] POCT Glucose 128(H) 74 - 99 mg/dL [...] Comment 07/13/2025 6:02 PM EDT [facility] Lens Grinder ID Veronika Baezhma 025 6:02 PM EDT [facility] Device ID [id number] 07/13/2025 6:02 PM EDT [facility] Specimen Type POC Capillary 07/13/2025 6:02 PM EDT [facility] Blood Capillary blood specimen / Unknown 07/13/2025 6:01 PM EDT 07/13/2025 6:02 PM EDT Anne Franco MD LAB POINT OF CARE TEST DOCKED DEVICE UNSOLICITED RESULTS Final Result [facility] [address] [place] [address] * (ABNORMAL) POCT glucose meter (07/13/2025 12:12 PM EDT) [facility] POCT Glucose 139(H) 74 - 99 mg/dL [...] for testing. Comment 07/13/2025 12:14 PM EDT [facility] Lens Grinder ID Veronika Baezhma 025 12:14 PM EDT [facility] Device ID [id number] 07/13/2025 12:14 PM EDT [facility] Specimen Type POC Capillary 07/13/2025 12:14 PM EDT [facility] Blood Capillary blood specimen / Unknown 07/13/2025 12:12 PM EDT 07/13/2025 12:14 PM EDT Anne Franco MD LAB POINT OF CARE TEST DOCKED DEVICE UNSOLICITED RESULTS Final Result Performing Organization Address City/[facility]/ZIP Co de Phone Number [facility] [address] [place] [address] * (ABNORMAL) Phosphorus (07/13/2025 10:21 AM EDT) Phosphorus, Plasma 2.2(L) 2.5 - 4.5 mg/dL 07/13/2025 11:23 AM EDT [facility] Blood Venous blood specimen / Unknown Venipuncture / Unknown 07/13/2025 10:21 AM EDT 07/13/2025 10:31 AM EDT Luanne Crawford MD LAB BLOOD ORDERABLES Final Result Performing Organization Address City/[facility] [place] [address] * (ABNORMAL) Magnesium, Plasma (07/13/2025 10:21 AM EDT) Magnesium, Plasma 1.7(L) 1.9 - 2.4 mg/dL 07/13/2025 11:23 AM EDT [facility] Blood Venous blood specimen / Unknown Venipuncture / Unknown 07/13/2025 10:21 AM EDT 07/13/2025 10:31 AM EDT Luanne Crawford MD LAB BLOOD ORDERABLES Final Result Performing Organization Address City[facility] Co de Phone Number [facility] [address] [place] [address] * (ABNORMAL) Basic Metabolic Panel, Plasma (07/13/2025 10:21 AM EDT) Glucose, Plasma 135(H) 74 - 99 mg/dL 07/13/2025 11:23 AM EDT [facility] BUN, Plasma 22(H) 7 - 21 mg/dL 07/13/2025 11:23 AM EDT [facility] Creatinine, Plasma 0.62 0.60 - 1.10 mg/dL 07/13/2025 11:23 AM EDT [facility] BUN/Creatinine Ratio 35 07/13/2025 11:23 AM EDT [facility] Sodium, Plasma 138 136 - 145 mmol/L 07/13/2025 11:23 AM EDT [facility] Potassium, Plasma 3.7 3.6 - 4.9 mmol/L 07/13/2025 11:23 AM EDT [facility] Chloride, Plasma 95(L) 97 - 107 mmol/L 07/13/2025 11:23 AM EDT [facility] CO2, Plasma 30(H) 22 - 29 mmol/L 07/13/2025 11:23 AM EDT [facility] Anion Gap 13 6 - 16 mmol/L 07/13/2025 11:23 AM EDT [facility] Total Calcium, Plasma 9.0 8.9 - 10.2 mg/dL 07/13/2025 11:23 AM EDT [facility] eGFRcr 109.3 mL/min/1.7 3m*2 07/13/2025 11:23 AM EDT [facility] Comment:Reported eGFRcr in m L/min/1.73m2 is based the CKD-EPI 2020 equation that does not use a race coefficient. Blood Venous blood specimen / Unknown Venipuncture / Unknown 07/13/2025 10:21 AM EDT 07/13/2025 10:31 AM EDT us Luanne Crawford MD LAB BLOOD ORDERABLES Final Result [facility] [address] [place] [address] * (ABNORMAL) CBC W/O Differential (07/13/2025 10:21 AM EDT) WBC Count 19.56(H) 3.70 - 10.30 10*3/uL LAB HEMATOLOGY METHOD 07/13/2025 10:59 AM EDT [facility] RBC Count 3.67(L) 3.90 - 5.20 10*6/uL LAB HEMATOLOGY METHOD 07/13/2025 10:59 AM EDT [facility] HGB 10.2(L) 11.2 - 15.7 g/dL LAB HEMATOLOGY METHOD 07/13/2025 10:59 AM EDT [facility] HCT 32.3(L) 34.0 - 45.0 % LAB HEMATOLOGY METHOD 07/13/2025 10:59 AM EDT [facility] Platelet Count 296 155 - 369 10*3/uL LAB HEMATOLOGY METHOD 07/13/2025 10:59 AM EDT [facility] MCV 88 79 - 98 fL LAB HEMATOLOGY METHOD 07/13/2025 10:59 AM EDT [facility] MCH 27.8 26.0 - 32.0 pg LAB HEMATOLOGY METHOD 07/13/2025 10:59 AM EDT [facility] MCHC 31.6 30.7 - 35.5 g/dL LAB HEMATOLOGY METHOD 07/13/2025 10:59 AM EDT [facility] RDW 17.6(H) 11.5 - 14.5 % LAB HEMATOLOGY METHOD 07/13/2025 10:59 AM EDT [facility] MPV 10.3 8.8 - 12.5 fL LAB HEMATOLOGY METHOD 07/13/2025 10:59 AM EDT [facility] nRBC 0.0 <=0.0 per 100 WBCs LAB HEMATOLOGY METHOD 07/13/2025 10:59 AM EDT [facility] Blood Venous blood specimen / Unknown Venipuncture / Unknown 07/13/2025 10:21 AM EDT 07/13/2025 10:31 AM EDT us Luanne Crawford MD LAB BLOOD ORDERABLES Final Result [facility] [address] [place] [address] * (ABNORMAL) POCT glucose meter (07/13/2025 8:50 [...] Comment 07/13/2025 8:53 AM EDT [facility] Lens Grinder ID Laura Baez 025 8:53 AM EDT [facility] Device ID [id number] 07/13/2025 8:53 AM EDT [facility] Specimen Type POC Capillary 07/13/2025 8:53 AM EDT [facility] Blood Capillary blood specimen / Unknown 07/13/2025 8:50 AM EDT 07/13/2025 8:53 AM EDT Anne Franco MD LAB POINT OF CARE TEST DOCKED DEVICE UNSOLICITED RESULTS Final Result Performing Organization Address City/State/[facility] Co de Phone Number [facility] [address] [place] [address] * (ABNORMAL) POCT glucose meter (07/13/2025 6:11 AM EDT) [facility] POCT Glucose 111(H) 74 - 99 mg/dL 07/13/2025 6:13 AM EDT [facility] Comment:Accuracy of a [...] 07/13/2025 6:13 AM EDT [facility] Lens Grinder ID Rita Alejandro 6:13 AM EDT [facility] Device ID [id number] 07/13/2025 6:13 AM EDT [facility] Specimen Type POC Capillary 07/13/2025 6:13 AM EDT [facility] Blood Capillary blood specimen / Unknown 07/13/2025 6:11 AM EDT 07/13/2025 6:13 AM EDT Anne Franco MD LAB POINT OF CARE TEST DOCKED DEVICE UNSOLICITED RESULTS Final Result Performing Organization Address [facility] Co de Phone Number [facility] [address] [place] [address] * (ABNORMAL) POCT glucose meter (07/12/2025 9:28 PM EDT) [facility] POCT Glucose 107(H) 74 - 99 mg/dL [...] Comment 07/12/2025 9:30 PM EDT [facility]ARE [facility] Lens Grinder ID Yenny Tong 025 9:30 PM EDT [facility]ARE LAB Device ID [id number] 07/12/2025 9:30 PM EDT [facility] Specimen Type POC Capillary 07/12/2025 9:30 PM EDT [facility] Blood Capillary blood specimen / Unknown 07/12/2025 9:28 PM EDT 07/12/2025 9:30 PM EDT Anne Franco MD LAB POINT OF CARE TEST DOCKED DEVICE UNSOLICITED RESULTS Final Result Performing Organization Address City/[facility]/ZIP Co de Phone Number [facility] [address] [place] [address] * (ABNORMAL) POCT glucose meter (07/12/2025 6:04 PM EDT) [facility] POCT Glucose 129(H) 74 - 99 mg/dL [...] Comment 07/12/2025 6:06 PM EDT [facility]ALTH[facility]ARE [facility] Lens Grinder ID Jeana Bear 07/12/2025 6:06 PM EDT [facility]ARE [facility] Device ID [id number] 07/12/2025 6:06 PM EDT [facility] Specimen Type POC Capillary 07/12/2025 6:06 PM EDT [facility] Blood Capillary blood specimen / Unknown 07/12/2025 6:04 PM EDT 07/12/2025 6:06 PM EDT Anne Franco MD LAB POINT OF CARE TEST DOCKED DEVICE UNSOLICITED RESULTS Final Result Performing Organization Address City/State/[facility] Co de Phone Number [facility] [address] [place] [address] * PERIPHERAL IV (SMARTFORM LINK) (07/12/2025 3:51 [...] ultrasound and/or 3CG images sent to [email or web address]. us Anne Franco MD IV THERAPY ORDERABLES Fin [...] for testing. Comment 07/12/2025 11:56 AM EDT [facility]ALTH[facility]ARE [facility] Lens Grinder ID Jeana Bear 07/12/2025 11:56 AM EDT [facility]ARE [facility] Device ID [id number] 07/12/2025 11:56 AM EDT [facility] Specimen Type POC Capillary 07/12/2025 11:56 AM EDT [facility] Blood Capillary blood specimen / Unknown 07/12/2025 11:55 AM EDT 07/12/2025 11:56 AM EDT Dorcas Hennessy MD LAB POINT OF CARE TE ST DOCKED DEVICE UNSOLICITED RESULTS Final Result Performing Organization Address City/State/[facility] Co de Phone Number [facility] [address] [place] [address] * XR Chest 1 View (07/12/2025 11:11 [...] Comment 07/12/2025 8:42 AM EDT [facility] Lens Grinder ID Jeana Bear 07/12/2025 8:42 AM EDT [facility]ALTH[facility]ARE LAB Device ID [id number] 07/12/2025 8:42 AM EDT [facility] Specimen Type POC Capillary 07/12/2025 8:42 AM EDT [facility] Blood Capillary blood specimen / Unknown 07/12/2025 8:41 AM EDT 07/12/2025 8:42 AM EDT Dorcas Hennessy MD LAB POINT OF CARE TE ST DOCKED DEVICE UNSOLICITED RESULTS Final Result [facility] [address] [place] [address] * Phosphorus (07/12/2025 12:25 AM EDT) Phosphorus, Plasma 2.9 2.5 - 4.5 mg/dL 07/12/2025 1:22 AM EDT [facility] Blood Venous blood specimen / Unknown Venipuncture / Unknown 07/12/2025 12:25 AM EDT 07/12/2025 12:52 AM EDT Luanne Crawford MD LAB BLOOD ORDERABLES Final Result Performing Organization Address [facility]/ZIP Co de Phone Number [facility] [address] [place] [address] * Magnesium, Plasma (07/12/2025 12:25 AM EDT) Magnesium, Plasma 2.0 1.9 - 2.4 mg/dL 07/12/2025 1:22 AM EDT [facility] Blood Venous blood specimen / Unknown Venipuncture / Unknown 07/12/2025 12:25 AM EDT 07/12/2025 12:52 AM EDT Luanne Crawford MD LAB BLOOD ORDERABLES Final Result Performing Organization Address City[facility] Co de Phone Number [facility] [address] [place] [address] * (ABNORMAL) Basic Metabolic Panel, Plasma (07/12/2025 12:25 AM EDT) Glucose, Plasma 92 74 - 99 mg/dL 07/12/2025 1:22 AM EDT [facility] BUN, Plasma 18 7 - 21 mg/dL 07/12/2025 1:22 AM EDT [facility] Creatinine, Plasma 0.84 0.60 - 1.10 mg/dL 07/12/2025 1:22 AM EDT [facility] BUN/Creatinine Ratio 21 07/12/2025 1:22 AM EDT [facility] Sodium, Plasma 142 136 - 145 mmol/L 07/12/2025 1:22 AM EDT [facility] Potassium, Plasma 3.6 3.6 - 4.9 mmol/L 07/12/2025 1:22 AM EDT [facility] Chloride, Plasma 103 97 - 107 mmol/L 07/12/2025 1:22 AM EDT [facility] CO2, Plasma 31(H) 22 - 29 mmol/L 07/12/2025 1:22 AM EDT [facility] Anion Gap 8 6 - 16 mmol/L 07/12/2025 1:22 AM EDT [facility] Total Calcium, Plasma 8.8(L) 8.9 - 10.2 mg/dL 07/12/2025 1:22 AM EDT [facility] eGFRcr 85.3 mL/min/1.7 3m*2 07/12/2025 1:22 AM EDT [facility] Comment:Reported eGFRcr in m L/min/1.73m2 is based the CKD-EPI 2020 equation that does not use a race coefficient. Blood Venous blood specimen / Unknown Venipuncture / Unknown 07/12/2025 12:25 AM EDT 07/12/2025 12:52 AM EDT us Luanne Crawford MD LAB BLOOD ORDERABLES Final Result [facility] [address] [place] [address] * (ABNORMAL) CBC W/O Differential (07/12/2025 12:25 AM EDT) WBC Count 15.81(H) 3.70 - 10.30 10*3/uL LAB HEMATOLOGY METHOD 07/12/2025 1:05 AM EDT [facility] RBC Count 3.39(L) 3.90 - 5.20 10*6/uL LAB HEMATOLOGY METHOD 07/12/2025 1:05 AM EDT [facility] HGB 9.3(L) 11.2 - 15.7 g/dL LAB HEMATOLOGY METHOD 07/12/2025 1:05 AM EDT [facility] HCT 29.8(L) 34.0 - 45.0 % LAB HEMATOLOGY METHOD 07/12/2025 1:05 AM EDT [facility] Platelet Count 276 155 - 369 10*3/uL LAB HEMATOLOGY METHOD 07/12/2025 1:05 AM EDT [facility] MCV 88 79 - 98 fL LAB HEMATOLOGY METHOD 07/12/2025 1:05 AM EDT [facility] MCH 27.4 26.0 - 32.0 pg LAB HEMATOLOGY METHOD 07/12/2025 1:05 AM EDT [facility] MCHC 31.2 30.7 - 35.5 g/dL LAB HEMATOLOGY METHOD 07/12/2025 1:05 AM EDT [facility] RDW 18.0(H) 11.5 - 14.5 % LAB HEMATOLOGY METHOD 07/12/2025 1:05 AM EDT [facility] MPV 10.5 8.8 - 12.5 fL LAB HEMATOLOGY METHOD 07/12/2025 1:05 AM EDT [facility] nRBC 0.0 <=0.0 per 100 WBCs LAB HEMATOLOGY METHOD 07/12/2025 1:05 AM EDT [facility] Blood Venous blood specimen / Unknown Venipuncture / Unknown 07/12/2025 12:25 AM EDT 07/12/2025 12:55 AM EDT us Luanne Crawford MD LAB BLOOD ORDERABLES Final Result Performing Organization Address City/[facility]/ZIP Co de Phone Number [facility] [address] [place] [address] * (ABNORMAL) POCT Glucose (if patient NPO, on TPN or continuous nutrition) (07/11/2025 8:45 PM EDT) [facility] POCT Glucose 119(A) 74 - 99 mg/dL [facility] Test Strip Lot Number \[id number]\ HEALTHCARE LAB Test Strip Expiration 09/24/2026 [facility] Blood Venous blood specimen / Unknown 07/11/2025 8:45 PM EDT us Dorcas Hennessy MD POINT OF CARE TEST ENTER/EDIT OR DERABLES Final Result Performing Organization Address City[facility] Co de Phone Number [facility] [address] [place] [address] * (ABNORMAL) POCT Glucose - Before Meals and Bedtime (07/11/2025 8:43 PM EDT) POCT Glucose 119(A) 74 - 99 mg/dL [facility] Test Strip Lot Number [id number] [facility] Test Strip Expiration 09/24/2026 [facility] Blood Venous blood specimen / Unknown 07/11/2025 8:43 PM EDT Dorcas Hennessy MD POINT OF CARE TEST ENTER/EDIT OR DERABLES Final Result Performing Organization Address City/[facility]/ZIP Co de Phone Number [facility] [address] [place] [address] * (ABNORMAL) POCT glucose meter (07/11/2025 8:42 [...] for testing. Comment 07/11/2025 8:43 PM EDT [facility]ALTH[facility]ARE [facility] Lens Grinder ID Jf Cruz 07/11/2025 8:43 PM EDT [facility]ALTH[facility]ARE LAB Device ID [id number] 07/11/2025 8:43 PM EDT [facility]ARE [facility] Specimen Type POC Capillary 07/11/2025 8:43 PM EDT [facility] Blood Capillary blood specimen / Unknown 07/11/2025 8:42 PM EDT 07/11/2025 8:43 PM EDT us Dorcas Hennessy MD LAB POINT OF CARE TE ST DOCKED DEVICE UNSOLICITED RESULTS Final Result Performing Organization Address City[facility]/ZIP Co de Phone Number [facility] [address] [place] [address] * (ABNORMAL) POCT glucose meter (07/11/2025 5:38 [...] 07/11/2025 5:40 PM EDT [facility] Lens Grinder ID Ayana Amato 07/11/2025 5:40 PM EDT [facility] Device ID [id number] 07/11/2025 5:40 PM EDT [facility] Specimen Type POC Capillary 07/11/2025 5:40 PM EDT [facility] Blood Capillary blood specimen / Unknown 07/11/2025 5:38 PM EDT 07/11/2025 5:40 PM EDT us Dorcas Hennessy MD LAB POINT OF CARE TE ST DOCKED DEVICE UNSOLICITED RESULTS Final Result Performing Organization Address City/State/[facility] Co de Phone Number [facility] [address] [place] [address] * (ABNORMAL) POCT glucose meter (07/11/2025 3:36 PM EDT) [facility] POCT Glucose 144(H) 74 - 99 mg/dL [...] 07/11/2025 3:38 PM EDT [facility] Lens Grinder ID Radha Frias 07/11/20 3:38 PM EDT [facility] Device ID [id number] 07/11/2025 3:38 PM EDT [facility] Specimen Type POC Venous 07/11/2025 3:38 PM EDT [facility] Blood Venous blood specimen / Unknown 07/11/2025 3:36 PM EDT 07/11/2025 3:38 PM EDT us Dorcas Hennessy MD LAB POINT OF CARE TE ST DOCKED DEVICE UNSOLICITED RESULTS Final Result [facility] [address] [place] [address] * (ABNORMAL) POCT glucose meter (07/11/2025 1:52 PM EDT) [facility] POCT Glucose 140(H) 74 - 99 mg/dL [...] 07/11/2025 1:54 PM EDT [facility] Lens Grinder ID Ayana Amato 07/11/2025 1:54 PM EDT [facility] Device ID [id number] 07/11/2025 1:54 PM EDT [facility]ALTH[facility]ARE [facility] Specimen Type POC Capillary 07/11/2025 1:54 PM EDT [facility] Blood Capillary blood specimen / Unknown 07/11/2025 1:52 PM EDT 07/11/2025 1:54 PM EDT Dorcas Hennessy MD LAB POINT OF CARE TE ST DOCKED DEVICE UNSOLICITED RESULTS Final Result [facility] [address] [place] [address] * (ABNORMAL) POCT glucose meter (07/11/2025 12:12 PM EDT) [facility] POCT Glucose 154(H) 74 - 99 mg/dL [...] for testing. Comment 07/11/2025 12:13 PM EDT [facility] Lens Grinder ID Ayana Amato 07/11/2025 12:13 PM EDT HEALTHCARE LAB Device ID [id number] 07/11/2025 12:13 PM EDT [facility] Specimen Type POC Capillary 07/11/2025 12:13 PM EDT [facility] Blood Capillary blood specimen / Unknown 07/11/2025 12:12 PM EDT 07/11/2025 12:13 PM EDT Luanne Crawford MD LAB POINT OF CARE TEST DOCKED DEVICE UNSOLICITED RESULTS Final Result Performing Organization Address [facility] Co de Phone Number [facility] [address] [place] [address] * (ABNORMAL) POCT glucose meter (07/11/2025 9:57 AM EDT) [facility] POCT Glucose 135(H) 74 - 99 mg/dL [...] for testing. Comment 07/11/2025 9:59 AM EDT [facility] Lens Grinder ID Ayana Amato 07/11/2025 9:59 AM EDT HEALTHCARE LAB Device ID [id number] 07/11/2025 9:59 AM EDT [facility]ARE [facility] Specimen Type POC Capillary 07/11/2025 9:59 AM EDT [facility] Blood Capillary blood specimen / Unknown 07/11/2025 9:57 AM EDT 07/11/2025 9:59 AM EDT us Luanne Crawford MD LAB POINT OF CARE TEST DOCKED DEVICE UNSOLICITED RESULTS Final Result Performing Organization Address [facility] Co de Phone Number [facility] [address] [place] [address] * [place] [facility], E/M 30-74 MINUTES (07/11/2025 8:41 [...] Care Surgery, Trauma and Surgical Critical Care Dorcas Hennessy MD IN CLINIC/BEDSIDE ORDERABLES Fin al Result * (ABNORMAL) POCT glucose meter (07/11/2025 8:13 AM EDT) [facility] POCT Glucose 140(H) 74 - 99 mg/dL 07/11/2025 8:15 AM EDT [facility] Comment:Accuracy of a glucos e result [...] 07/11/2025 8:15 AM EDT [facility] Lens Grinder ID Ayana Amato 07/11/2025 8:15 AM EDT HEALTHCARE LAB Device ID [id number] 07/11/2025 8:15 AM EDT [facility] Specimen Type POC Capillary 07/11/2025 8:15 AM EDT [facility] Blood Capillary blood specimen / Unknown 07/11/2025 8:13 AM EDT 07/11/2025 8:15 AM EDT Luanne Crawford MD LAB POINT OF CARE TEST DOCKED DEVICE UNSOLICITED RESULTS Final Result Performing Organization Address [facility] de Phone Number [facility] [address] [place] [address] * (ABNORMAL) POCT glucose meter (07/11/2025 6:03 AM EDT) [facility] POCT Glucose 135(H) 74 - 99 mg/dL [...] Comment 07/11/2025 6:05 AM EDT [facility]ALTH[facility]ARE [facility] Lens Grinder ID Cheyanne Briceño 07/11/2025 6:05 AM EDT [facility]ALTH[facility]ARE LAB Device ID [id number] 07/11/2025 6:05 AM EDT [facility] Specimen Type POC Capillary 07/11/2025 6:05 AM EDT [facility] Blood Capillary blood specimen / Unknown 07/11/2025 6:03 AM EDT 07/11/2025 6:05 AM EDT Luanne Crawford MD LAB POINT OF CARE TEST DOCKED DEVICE UNSOLICITED RESULTS Final Result Performing Organization Address City[facility] Co de Phone Number [facility] [address] [place] [address] * (ABNORMAL) POCT glucose meter (07/11/2025 4:04 AM EDT) [facility] POCT Glucose 107(H) 74 - 99 mg/dL [...] Comment 07/11/2025 4:06 AM EDT [facility]ALTH[facility]ARE [facility] Lens Grinder ID Cheyanne Briceño 07/11/2025 4:06 AM EDT HEALTHCARE LAB Device ID [id number] 07/11/2025 4:06 AM EDT [facility]ARE [facility] Specimen Type POC Capillary 07/11/2025 4:06 AM EDT [facility] Blood Capillary blood specimen / Unknown 07/11/2025 4:04 AM EDT 07/11/2025 4:06 AM EDT Luanne Crawford MD LAB POINT OF CARE TEST DOCKED DEVICE UNSOLICITED RESULTS Final Result [facility] [address] [place] [address] * (ABNORMAL) POCT glucose meter (07/11/2025 2:02 AM EDT) [facility] POCT Glucose 130(H) 74 - 99 mg/dL [...] Comment 07/11/2025 2:03 AM EDT [facility]ALTH[facility]ARE [facility] Lens Grinder ID Cheyanne Briceño 07/11/2025 2:03 AM EDT [facility]ALTH[facility]ARE LAB Device ID [id number] 07/11/2025 2:03 AM EDT [facility] Specimen Type POC Capillary 07/11/2025 2:03 AM EDT [facility] Blood Capillary blood specimen / Unknown 07/11/2025 2:02 AM EDT 07/11/2025 2:03 AM EDT Luanne Crawford MD LAB POINT OF CARE TEST DOCKED DEVICE UNSOLICITED RESULTS Final Result Performing Organization Address [facility] Co de Phone Number [facility] [address] [place] [address] * Phosphorus (07/11/2025 12:09 AM EDT) Phosphorus, Plasma 3.7 2.5 - 4.5 mg/dL 07/11/2025 12:54 AM EDT [facility] Blood Venous blood specimen / Unknown Venipuncture / Unknown 07/11/2025 12:09 AM EDT 07/11/2025 12:26 AM EDT Luanne Crawford MD LAB BLOOD ORDERABLES Final Result Performing Organization Address [facility] Co de Phone Number [facility] [address] [place] [address] * (ABNORMAL) Magnesium, Plasma (07/11/2025 12:09 AM EDT) Magnesium, Plasma 1.8(L) 1.9 - 2.4 mg/dL 07/11/2025 12:54 AM EDT [facility] Blood Venous blood specimen / Unknown Venipuncture / Unknown 07/11/2025 12:09 AM EDT 07/11/2025 12:26 AM EDT Luanne Crawford MD LAB BLOOD ORDERABLES Final Result Performing Organization Address [facility] Co de Phone Number [facility] [address] [place] [address] * (ABNORMAL) Basic Metabolic Panel, Plasma (07/11/2025 12:09 AM EDT) Glucose, Plasma 163(H) 74 - 99 mg/dL 07/11/2025 12:54 AM EDT [facility] BUN, Plasma 20 7 - 21 mg/dL 07/11/2025 12:54 AM EDT [facility] Creatinine, Plasma 0.99 0.60 - 1.10 mg/dL 07/11/2025 12:54 AM EDT [facility] BUN/Creatinine Ratio 20 07/11/2025 12:54 AM EDT [facility] Sodium, Plasma 141 136 - 145 mmol/L 07/11/2025 12:54 AM EDT [facility] Potassium, Plasma 3.8 3.6 - 4.9 mmol/L 07/11/2025 12:54 AM EDT [facility] Chloride, Plasma 104 97 - 107 mmol/L 07/11/2025 12:54 AM EDT [facility] CO2, Plasma 27 22 - 29 mmol/L 07/11/2025 12:54 AM EDT [facility] Anion Gap 10 6 - 16 mmol/L 07/11/2025 12:54 AM EDT [facility] Total Calcium, Plasma 9.1 8.9 - 10.2 mg/dL 07/11/2025 12:54 AM EDT [facility] eGFRcr 70.0 mL/min/1.7 3m*2 07/11/2025 12:54 AM EDT [facility] Comment:Reported eGFRcr in m L/min/1.73m2 is based the CKD-EPI 2020 equation that does not use a race coefficient. Blood Venous blood specimen / Unknown Venipuncture / Unknown 07/11/2025 12:09 AM EDT 07/11/2025 12:26 AM EDT us Luanne Crawford MD LAB BLOOD ORDERABLES Final Result [facility] [address] [place] [address] * (ABNORMAL) CBC W/O Differential (07/11/2025 12:09 AM EDT) WBC Count 13.23(H) 3.70 - 10.30 10*3/uL LAB HEMATOLOGY METHOD 07/11/2025 12:36 AM EDT [facility] RBC Count 3.65(L) 3.90 - 5.20 10*6/uL LAB HEMATOLOGY METHOD 07/11/2025 12:36 AM EDT [facility] HGB 10.1(L) 11.2 - 15.7 g/dL LAB HEMATOLOGY METHOD 07/11/2025 12:36 AM EDT [facility] HCT 32.1(L) 34.0 - 45.0 % LAB HEMATOLOGY METHOD 07/11/2025 12:36 AM EDT [facility] Platelet Count 270 155 - 369 10*3/uL LAB HEMATOLOGY METHOD 07/11/2025 12:36 AM EDT [facility] MCV 88 79 - 98 fL LAB HEMATOLOGY METHOD 07/11/2025 12:36 AM EDT [facility] MCH 27.7 26.0 - 32.0 pg LAB HEMATOLOGY METHOD 07/11/2025 12:36 AM EDT [facility] MCHC 31.5 30.7 - 35.5 g/dL LAB HEMATOLOGY METHOD 07/11/2025 12:36 AM EDT [facility] RDW 17.9(H) 11.5 - 14.5 % LAB HEMATOLOGY METHOD 07/11/2025 12:36 AM EDT [facility] MPV 10.7 8.8 - 12.5 fL LAB HEMATOLOGY METHOD 07/11/2025 12:36 AM EDT [facility] nRBC 0.0 <=0.0 per 100 WBCs LAB HEMATOLOGY METHOD 07/11/2025 12:36 AM EDT [facility] Blood Venous blood specimen / Unknown Venipuncture / Unknown 07/11/2025 12:09 AM EDT 07/11/2025 12:29 AM EDT us Luanne Crawford MD LAB BLOOD ORDERABLES Final Result [facility] [address] [place] [address] * (ABNORMAL) POCT glucose meter (07/11/2025 12:04 AM EDT) [facility] POCT Glucose 156(H) 74 - 99 mg/dL 07/11/2025 12:06 AM EDT [facility] Comment:Accuracy of a glucos e result [...] Comment 07/11/2025 12:06 AM EDT [facility] Lens Grinder ID Cheyanne Briceño 07/11/2025 12:06 AM EDT [facility] Device ID [id number] 07/11/2025 12:06 AM EDT [facility] Specimen Type POC Capillary 07/11/2025 12:06 AM EDT [facility] Blood Capillary blood specimen / Unknown 07/11/2025 12:04 AM EDT 07/11/2025 12:06 AM EDT us Luanne Crawford MD LAB POINT OF CARE TEST DOCKED DEVICE UNSOLICITED RESULTS Final Result [facility] [address] [place] [address] * (ABNORMAL) POCT glucose meter (07/10/2025 10:02 PM EDT) [facility] POCT Glucose 202(H) 74 - 99 mg/dL 07/10/2025 10:03 PM EDT [facility] Comment:Accuracy of [...] Comment 07/10/2025 10:03 PM EDT [facility] Lens Grinder ID Lidia Ugalde 07/10/2025 10:03 PM EDT [facility] Device ID [id number] 07/10/2025 10:03 PM EDT [facility] Specimen Type POC Capillary 07/10/2025 10:03 PM EDT [facility] Blood Capillary blood specimen / Unknown 07/10/2025 10:02 PM EDT 07/10/2025 10:03 PM EDT us Luanne Crawford MD LAB POINT OF CARE TEST DOCKED DEVICE UNSOLICITED RESULTS Final Result [facility] [address] [place] [address] * (ABNORMAL) Blood gas panel, arterial (07/10/2025 8:23 PM EDT) pH, Arterial 7.30(L) 7.35 - 7.45 LAB HEMATOLOGY METHOD 07/10/2025 8:40 PM EDT [facility] pCO2, Arterial 57(H) 35 - 48 mmHg LAB HEMATOLOGY METHOD 07/10/2025 8:40 PM EDT [facility] pO2, Arterial 80(L) 83 - 108 mmHg LAB HEMATOLOGY METHOD 07/10/2025 8:40 PM EDT [facility] SO2, Measured, Arterial 95 94 - 98 % LAB HEMATOLOGY METHOD 07/10/2025 8:40 PM EDT [facility] Base Excess, Arterial 1.1 -2.0 - 3.0 mmol/L LAB HEMATOLOGY METHOD 07/10/2025 8:40 PM EDT [facility] Bicarbonate, Calculated, Arterial 28(H) 22 - 26 mmol/L LAB HEMATOLOGY METHOD 07/10/2025 8:40 PM EDT [facility] Hematocrit, Whole Blood 31.5(L) 34.0 - 45.0 % LAB HEMATOLOGY METHOD 07/10/2025 8:40 PM EDT [facility] Sodium, Whole Blood 138 136 - 145 mmol/L LAB HEMATOLOGY METHOD 07/10/2025 8:40 PM EDT [facility] Potassium, Whole Blood 3.9 3.6 - 4.9 mmol/L LAB HEMATOLOGY METHOD 07/10/2025 8:40 PM EDT [facility] Chloride, Whole Blood 103 97 - 107 mmol/L LAB HEMATOLOGY METHOD 07/10/2025 8:40 PM EDT [facility] Glucose, Whole Blood 206(H) 74 - 99 mg/dL LAB HEMATOLOGY METHOD 07/10/2025 8:40 PM EDT [facility] Ionized Calcium, Whole Blood 5.0 4.6 - 5.1 mg/dL LAB HEMATOLOGY METHOD 07/10/2025 8:40 PM EDT [facility] Lactate, Arterial, Whole Blood 1.7(H) 0.5 - 1.6 mmol/L LAB HEMATOLOGY METHOD 07/10/2025 8:40 PM EDT [facility] Blood Arterial blood specimen / Unknown Arterial Puncture / Unknown 07/10/2025 8:23 PM EDT 07/10/2025 8:35 PM EDT Luanne Crawford MD LAB BLOOD ORDERABLES Final Result [facility] [address] [place] [address] * (ABNORMAL) POCT glucose meter (07/10/2025 8:03 PM EDT) POCT Glucose 206(H) 74 - 99 mg/dL 07/10/2025 8:05 PM EDT [facility] Comment:Accuracy of a [...] Comment 07/10/2025 8:05 PM EDT [facility] Lens Grinder ID Cheyanne Briceño 07/10/2025 8:05 PM EDT [facility] Device ID [id number] 07/10/2025 8:05 PM EDT [facility] Specimen Type POC Capillary 07/10/2025 8:05 PM EDT [facility] Blood Capillary blood specimen / Unknown 07/10/2025 8:03 PM EDT 07/10/2025 8:05 PM EDT us Luanne Crawford MD LAB POINT OF CARE TEST DOCKED DEVICE UNSOLICITED RESULTS Final Result [facility] [address] [place] [address] * (ABNORMAL) POCT glucose meter (07/10/2025 6:22 [...] Comment 07/10/2025 6:25 PM EDT [facility] Lens Grinder ID Zara Segovia 025 6:25 PM EDT [facility] Device ID [id number] 07/10/2025 6:25 PM EDT [facility] Specimen Type POC Capillary 07/10/2025 6:25 PM EDT [facility] Blood Capillary blood specimen / Unknown 07/10/2025 6:22 PM EDT 07/10/2025 6:25 PM EDT us Luanne Crawford MD LAB POINT OF CARE TEST DOCKED DEVICE UNSOLICITED RESULTS Final Result Performing Organization Address City/State/[facility] Co de Phone Number [facility] [address] [place] [address] * (ABNORMAL) POCT glucose meter (07/10/2025 2:17 PM EDT) [facility] POCT Glucose 145(H) 74 - 99 mg/dL 07/10/2025 2:19 PM EDT [facility] Comment:Accuracy of a [...] Comment 07/10/2025 2:19 PM EDT [facility] Lens Grinder ID Zara Segovia 025 2:19 PM EDT [facility] Device ID [id number] 07/10/2025 2:19 PM EDT [facility] Specimen Type POC Arterial 07/10/2025 2:19 PM EDT [facility] Blood Arterial blood specimen / Unknown 07/10/2025 2:17 PM EDT 07/10/2025 2:19 PM EDT us Luanne Crawford MD LAB POINT OF CARE TEST DOCKED DEVICE UNSOLICITED RESULTS Final Result [facility] [address] [place] [address] * XR Abdomen 1 View (07/10/2025 12:03 [...] of the abdomen. COMPARISON: None. FINDINGS: Limited [id number] abdominal radiograph for the purpose of locating tube position. The tip of the nasogastric tube is within the mid stomach. Procedure Note Bernabe Sen MD - 07/10/2025 CLINICAL INDICATION: feeding tube placement TECHNIQUE: Supine radiograph of the abdomen. COMPARISON: None. FINDINGS: Limited [id number] abdominal radiograph for the purpose of locatingtube [...] - 99 mg/dL 07/10/2025 12:02 PM EDT [facility] Comment:Accuracy of a glucos e result [...] Comment 07/10/2025 12:02 PM EDT [facility] Lens Grinder ID Zara Segovia 025 12:02 PM EDT [facility] Device ID [id number] 07/10/2025 12:02 PM EDT [facility] Specimen Type POC Arterial 07/10/2025 12:02 PM EDT [facility] Blood Arterial blood specimen / Unknown 07/10/2025 12:00 PM EDT 07/10/2025 12:02 PM EDT us Luanne Crawford MD LAB POINT OF CARE TEST DOCKED DEVICE UNSOLICITED RESULTS Final Result Performing Organization Address City/[facility]/ZIP Co de Phone Number [facility] [address] [place] [address] * (ABNORMAL) POCT glucose meter (07/10/2025 9:50 AM EDT) [facility] POCT Glucose 134(H) 74 - 99 mg/dL [...] Comment 07/10/2025 9:52 AM EDT [facility] Lens Grinder ID Zara Segovia 025 9:52 AM EDT [facility] Device ID [id number] 07/10/2025 9:52 AM EDT [facility] Specimen Type POC Arterial 07/10/2025 9:52 AM EDT [facility] Blood Arterial blood specimen / Unknown 07/10/2025 9:50 AM EDT 07/10/2025 9:52 AM EDT us Luanne Crawford MD LAB POINT OF CARE TEST DOCKED DEVICE UNSOLICITED RESULTS Final Result [facility] [address] [place] [address] * ECG Adult (07/10/2025 8:42 AM EDT) EKG DIAGNOSIS CLASS Abnormal MUSE ECG Ventricular Rate 79 BPM MUSE ECG Atrial Rate 79 BPM MUSE ECG WY Interval 188 ms MUSE ECG QRSD Interval 90 ms MUSE ECG QT Interval 354 ms MUSE ECG QTC Interval 405 ms MUSE ECG P Radcliffe 44 degrees MUSE ECG R [place] 17 degrees MUSE ECG T Wave [place]cliffe 27 degrees MUSE ECG Diagnosis Sinus rhythm with frequent premature ventricular complexes MUSE ECG Diagnosis Low voltage QRS MUSE ECG Diagnosis Cannot rule out Anterior infarct , age undetermined MUSE ECG Diagnosis MUSE ECG Diagnosis MUSE ECG Diagnosis Confirmed by Octavio Walsh ([id number]) on 07/10/2025 11:49:20 AM MUSE ECG 07/10/2025 8:42 AM EDT 07/10/2025 11:49 AM EDT us Luanne Crawford MD ECG ORDERABLES Final Resu lt MUSE ECG * [place] [facility], E/M 30-74 MINUTES (07/10/2025 8:15 AM EDT) Narrative Dorcas Hennessy MD - 07/10/2025 8:15 AM EDT Dorcas eHnnessy MD 07/18/2025 7:20 PM Critical Care Performed [...] POCT glucose meter (07/10/2025 8:04 AM EDT) [facility] POCT Glucose 163(H) 74 - 99 mg/dL [...] Comment 07/10/2025 9:22 AM EDT [facility] Lens Grinder ID SegoviaZara 025 9:22 AM EDT [facility] LAB Device ID [id number] 07/10/2025 9:22 AM EDT [facility] Specimen Type POC Arterial 07/10/2025 9:22 AM EDT [facility] Blood Arterial blood specimen / Unknown 07/10/2025 8:04 AM EDT 07/10/2025 9:22 AM EDT us Luanne Crawford MD LAB POINT OF CARE TEST DOCKED DEVICE UNSOLICITED RESULTS Final Result [facility] [address] [place] [address] * (ABNORMAL) POCT glucose meter (07/10/2025 6:04 AM EDT) Pathologist [facility] POCT Glucose 187(H) 74 - 99 mg/dL [...] Comment 07/10/2025 6:05 AM EDT [facility] Lens Grinder ID Cheyanne Briceño 07/10/2025 6:05 AM EDT [facility] Device ID [id number] 07/10/2025 6:05 AM EDT [facility] Specimen Type POC Arterial 07/10/2025 6:05 AM EDT [facility] Blood Arterial blood specimen / Unknown 07/10/2025 6:04 AM EDT 07/10/2025 6:05 AM EDT Luanne Crawford MD LAB POINT OF CARE TEST DOCKED DEVICE UNSOLICITED RESULTS Final Result [facility] [address] [place] [address] * (ABNORMAL) POCT glucose meter (07/10/2025 3:59 AM EDT) [facility] POCT Glucose 153(H) 74 - 99 mg/dL [...] for testing. Comment 07/10/2025 4:01 AM EDT [facility] Lens Grinder ID Cheyanne Briceño 07/10/2025 4:01 AM EDT [facility] Device ID [id number] 07/10/2025 4:01 AM EDT [facility] Specimen Type POC Arterial 07/10/2025 4:01 AM EDT [facility] Blood Arterial blood specimen / Unknown 07/10/2025 3:59 AM EDT 07/10/2025 4:01 AM EDT us Luanne Crawford MD LAB POINT OF CARE TEST DOCKED DEVICE UNSOLICITED RESULTS Final Result Performing Organization Address [facility] de Phone Number [facility] [address] [place] [address] * (ABNORMAL) POCT glucose meter (07/10/2025 3:01 [...] 07/10/2025 3:03 AM EDT [facility] Lens Grinder ID Cheyanne Briceño 07/10/2025 3:03 AM EDT [facility] Device ID [id number] 07/10/2025 3:03 AM EDT [facility] Specimen Type POC Arterial 07/10/2025 3:03 AM EDT [facility] Blood Arterial blood specimen / Unknown 07/10/2025 3:01 AM EDT 07/10/2025 3:03 AM EDT us Luanne Crawford MD LAB POINT OF CARE TEST DOCKED DEVICE UNSOLICITED RESULTS Final Result Performing Organization Address City/[facility] de Phone Number [facility] [address] [place] [address] * (ABNORMAL) POCT glucose meter (07/10/2025 2:03 [...] for testing. Comment 07/10/2025 2:04 AM EDT [facility] Lens Grinder ID Cheyanne Briceño 07/10/2025 2:04 AM EDT [facility] Device ID [id number] 07/10/2025 2:04 AM EDT [facility] Specimen Type POC Arterial 07/10/2025 2:04 AM EDT [facility] Blood Arterial blood specimen / Unknown 07/10/2025 2:03 AM EDT 07/10/2025 2:04 AM EDT us Luanne Crawford MD LAB POINT OF CARE TEST DOCKED DEVICE UNSOLICITED RESULTS Final Result Performing Organization Address [facility] Co de Phone Number [facility] [address] [place] [address] * (ABNORMAL) POCT glucose meter (07/10/2025 12:59 AM EDT) POCT Glucose 158(H) 74 - 99 mg/dL 07/10/2025 1:00 AM EDT [facility] Comment:Accuracy of [...] for testing. Comment 07/10/2025 1:00 AM EDT [facility] Lens Grinder ID Cheyanne Briceño 07/10/2025 1:00 AM EDT [facility] Device ID [id number] 07/10/2025 1:00 AM EDT [facility] Specimen Type POC Arterial 07/10/2025 1:00 AM EDT [facility] Blood Arterial blood specimen / Unknown 07/10/2025 12:59 AM EDT 07/10/2025 1:00 AM EDT us Luanne Crawford MD LAB POINT OF CARE TEST DOCKED DEVICE UNSOLICITED RESULTS Final Result Performing Organization Address [facility] Co de Phone Number [facility] [address] [place] [address] * Phosphorus (07/10/2025 12:03 AM EDT) Phosphorus, Plasma 4.2 2.5 - 4.5 mg/dL 07/10/2025 12:40 AM EDT [facility] Blood Arterial blood specimen / Unknown Venipuncture / Unknown 07/10/2025 12:03 AM EDT 07/10/2025 12:10 AM EDT Luanne Crawford MD LAB BLOOD ORDERABLES Final Result [facility] [address] [place] [address] * Magnesium, Plasma (07/10/2025 12:03 AM EDT) Pathologist [facility] Magnesium, Plasma 2.1 1.9 - 2.4 mg/dL 07/10/2025 12:40 AM EDT [facility] Blood Arterial blood specimen / Unknown Venipuncture / Unknown 07/10/2025 12:03 AM EDT 07/10/2025 12:10 AM EDT Luanne Crawford MD LAB BLOOD ORDERABLES Final Result [facility] [address] [place] [address] * (ABNORMAL) Basic Metabolic Panel, Plasma (07/10/2025 12:03 AM EDT) Glucose, Plasma 155(H) 74 - 99 mg/dL 07/10/2025 12:40 AM EDT [facility] BUN, Plasma 22(H) 7 - 21 mg/dL 07/10/2025 12:40 AM EDT [facility] Creatinine, Plasma 1.25(H) 0.60 - 1.10 mg/dL 07/10/2025 12:40 AM EDT [facility] BUN/Creatinine Ratio 18 07/10/2025 12:40 AM EDT [facility] Sodium, Plasma 134(L) 136 - 145 mmol/L 07/10/2025 12:40 AM EDT [facility] Potassium, Plasma 3.7 3.6 - 4.9 mmol/L 07/10/2025 12:40 AM EDT [facility] Chloride, Plasma 101 97 - 107 mmol/L 07/10/2025 12:40 AM EDT [facility] CO2, Plasma 25 22 - 29 mmol/L 07/10/2025 12:40 AM EDT [facility] Anion Gap 8 6 - 16 mmol/L 07/10/2025 12:40 AM EDT [facility] Total Calcium, Plasma 9.3 8.9 - 10.2 mg/dL 07/10/2025 12:40 AM EDT [facility] eGFRcr 52.9 mL/min/1.7 3m*2 07/10/2025 12:40 AM EDT [facility] Comment:Reported eGFRcr in m L/min/1.73m2 is based the CKD-EPI 2020 equation that does not use a race coefficient. Blood Arterial blood specimen / Unknown Venipuncture / Unknown 07/10/2025 12:03 AM EDT 07/10/2025 12:10 AM EDT us Luanne Crawford MD LAB BLOOD ORDERABLES Final Result [facility] [address] [place] [address] * (ABNORMAL) CBC W/O Differential (07/10/2025 12:03 AM EDT) WBC Count 17.64(H) 3.70 - 10.30 10*3/uL LAB HEMATOLOGY METHOD 07/10/2025 12:22 AM EDT [facility] RBC Count 3.83(L) 3.90 - 5.20 10*6/uL LAB HEMATOLOGY METHOD 07/10/2025 12:22 AM EDT [facility] HGB 10.6(L) 11.2 - 15.7 g/dL LAB HEMATOLOGY METHOD 07/10/2025 12:22 AM EDT [facility] HCT 33.3(L) 34.0 - 45.0 % LAB HEMATOLOGY METHOD 07/10/2025 12:22 AM EDT [facility] Platelet Count 309 155 - 369 10*3/uL LAB HEMATOLOGY METHOD 07/10/2025 12:22 AM EDT [facility] MCV 87 79 - 98 fL LAB HEMATOLOGY METHOD 07/10/2025 12:22 AM EDT [facility] MCH 27.7 26.0 - 32.0 pg LAB HEMATOLOGY METHOD 07/10/2025 12:22 AM EDT [facility] MCHC 31.8 30.7 - 35.5 g/dL LAB HEMATOLOGY METHOD 07/10/2025 12:22 AM EDT [facility] RDW 17.9(H) 11.5 - 14.5 % LAB HEMATOLOGY METHOD 07/10/2025 12:22 AM EDT [facility] MPV 10.3 8.8 - 12.5 fL LAB HEMATOLOGY METHOD 07/10/2025 12:22 AM EDT [facility] nRBC 0.0 <=0.0 per 100 WBCs LAB HEMATOLOGY METHOD 07/10/2025 12:22 AM EDT [facility] Blood Arterial blood specimen / Unknown Venipuncture / Unknown 07/10/2025 12:03 AM EDT 07/10/2025 12:11 AM EDT us Luanne Crawford MD LAB BLOOD ORDERABLES Final Result [facility] [address] [place] [address] * (ABNORMAL) POCT glucose meter (07/10/2025 12:02 [...] Comment 07/10/2025 12:04 AM EDT [facility] Lens Grinder ID Cheyanne Briceño 07/10/2025 12:04 AM EDT [employer] [facility] Device ID [id number] 07/10/2025 12:04 AM EDT [facility] Specimen Type POC Arterial 07/10/2025 12:04 AM EDT [facility] Blood Arterial blood specimen / Unknown 07/10/2025 12:02 AM EDT 07/10/2025 12:04 AM EDT Luanne Crawford MD LAB POINT OF CARE TEST DOCKED DEVICE UNSOLICITED RESULTS Final Result Performing Organization Address City/[facility] Co de Phone Number [facility] [address] [place] [address] * (ABNORMAL) POCT glucose meter (07/09/2025 10:01 [...] for testing. Comment 07/09/2025 10:04 PM EDT [facility] Lens Grinder ID Cheyanne Briceño 07/09/2025 10:04 PM EDT [facility] Device ID [id number] 07/09/2025 10:04 PM EDT [facility] Specimen Type POC Arterial 07/09/2025 10:04 PM EDT [facility] Blood Arterial blood specimen / Unknown 07/09/2025 10:01 PM EDT 07/09/2025 10:04 PM EDT us Luanne Crawford MD LAB POINT OF CARE TEST DOCKED DEVICE UNSOLICITED RESULTS Final Result Performing Organization Address City/[facility] Co de Phone Number [facility] [address] [place] [address] * (ABNORMAL) POCT glucose meter (07/09/2025 8:09 [...] 07/09/2025 8:11 PM EDT [facility] Lens Grinder ID Cheyanne Briceño 07/09/2025 8:11 PM EDT [facility] Device ID [id number] 07/09/2025 8:11 PM EDT [facility] Specimen Type POC Capillary 07/09/2025 8:11 PM EDT [facility] Blood Capillary blood specimen / Unknown 07/09/2025 8:09 PM EDT 07/09/2025 8:11 PM EDT us Luanne Crawford MD LAB POINT OF CARE TEST DOCKED DEVICE UNSOLICITED RESULTS Final Result Performing Organization Address City/State/[facility] Co de Phone Number [facility] [address] [place] [address] * (ABNORMAL) POCT glucose meter (07/09/2025 6:22 PM EDT) [facility] POCT Glucose 151(H) 74 - 99 mg/dL [...] for testing. Comment 07/09/2025 6:24 PM EDT [facility] Lens Grinder ID Jeana Bear 07/09/2025 6:24 PM EDT [facility] Device ID [id number] 07/09/2025 6:24 PM EDT [facility] Specimen Type POC Capillary 07/09/2025 6:24 PM EDT [facility] Blood Capillary blood specimen / Unknown 07/09/2025 6:22 PM EDT 07/09/2025 6:24 PM EDT us Luanne Crawford MD LAB POINT OF CARE TEST DOCKED DEVICE UNSOLICITED RESULTS Final Result Performing Organization Address City/[facility]/ZIP Co de Phone Number [facility] [address] [place] [address] * (ABNORMAL) POCT glucose meter (07/09/2025 4:06 PM EDT) POCT Glucose 144(H) 74 - 99 mg/dL 07/09/2025 4:07 PM EDT [facility] Comment:Accuracy of a glucos e result [...] for testing. Comment 07/09/2025 4:07 PM EDT [facility] Lens Grinder ID Jeana Bear 07/09/2025 4:07 PM EDT [facility] Device ID [id number] 07/09/2025 4:07 PM EDT [facility] Specimen Type POC Capillary 07/09/2025 4:07 PM EDT [facility] Blood Capillary blood specimen / Unknown 07/09/2025 4:06 PM EDT 07/09/2025 4:07 PM EDT us Luanne Crawford MD LAB POINT OF CARE TEST DOCKED DEVICE UNSOLICITED RESULTS Final Result Performing Organization Address City/[facility]/ZIP Co de Phone Number [facility] [address] [place] [address] * (ABNORMAL) Blood gas, arterial (07/09/2025 3:16 PM EDT) pH, Arterial 7.31(L) 7.35 - 7.45 LAB HEMATOLOGY METHOD 07/09/2025 3:40 PM EDT [facility] pCO2, Arterial 53(H) 35 - 48 mmHg LAB HEMATOLOGY METHOD 07/09/2025 3:40 PM EDT [facility] pO2, Arterial 153(H) 83 - 108 mmHg LAB HEMATOLOGY METHOD 07/09/2025 3:40 PM EDT [facility] SO2, Measured, Arterial 100(H) 94 - 98 % LAB HEMATOLOGY METHOD 07/09/2025 3:40 PM EDT [facility] Base Excess, Arterial -0.4 -2.0 - 3.0 mmol/L LAB HEMATOLOGY METHOD 07/09/2025 3:40 PM EDT [facility] Bicarbonate, Calculated, Arterial 26 22 - 26 mmol/L LAB HEMATOLOGY METHOD 07/09/2025 3:40 PM EDT [facility] Hematocrit, Whole Blood 30.6(L) 34.0 - 45.0 % LAB HEMATOLOGY METHOD 07/09/2025 3:40 PM EDT [facility] Sodium, Whole Blood 141 136 - 145 mmol/L LAB HEMATOLOGY METHOD 07/09/2025 3:40 PM EDT [facility] Potassium, Whole Blood 3.4(L) 3.6 - 4.9 mmol/L LAB HEMATOLOGY METHOD 07/09/2025 3:40 PM EDT [facility] Chloride, Whole Blood 107 97 - 107 mmol/L LAB HEMATOLOGY METHOD 07/09/2025 3:40 PM EDT [facility] Glucose, Whole Blood 141(H) 74 - 99 mg/dL LAB HEMATOLOGY METHOD 07/09/2025 3:40 PM EDT [facility] Ionized Calcium, Whole Blood 4.9 4.6 - 5.1 mg/dL LAB HEMATOLOGY METHOD 07/09/2025 3:40 PM EDT [facility] Lactate, Arterial, Whole Blood 0.9 0.5 - 1.6 mmol/L LAB HEMATOLOGY METHOD 07/09/2025 3:40 PM EDT [facility] Blood Arterial blood specimen / Unknown Arterial Line / Unknown 07/09/2025 3:16 PM EDT 07/09/2025 3:38 PM EDT us Luanne Crawford MD LAB BLOOD ORDERABLES Final Result [facility] [address] [place] [address] * (ABNORMAL) POCT glucose meter (07/09/2025 3:01 [...] for testing. Comment 07/09/2025 3:03 PM EDT [facility] Lens Grinder ID Jeana Bear 07/09/2025 3:03 PM EDT [facility] Device ID [id number] 07/09/2025 3:03 PM EDT [facility] Specimen Type POC Capillary 07/09/2025 3:03 PM [facility] Blood Capillary blood specimen / Unknown 07/09/2025 3:01 PM EDT 07/09/2025 3:03 PM EDT us Luanne Crawford MD LAB POINT OF CARE TEST DOCKED DEVICE UNSOLICITED RESULTS Final Result [facility] [address] [place] [place] [address] * (ABNORMAL) POCT glucose meter (07/09/2025 1:57 PM EDT) [facility] POCT Glucose 115(H) 74 - 99 mg/dL [...] for testing. Comment 07/09/2025 1:59 PM EDT [facility] Lens Grinder ID Jeana Bear 07/09/2025 1:59 PM EDT [facility] Device ID [id number] 07/09/2025 1:59 PM EDT [facility] Specimen Type POC Capillary 07/09/2025 1:59 PM EDT [facility] Blood Capillary blood specimen / Unknown 07/09/2025 1:57 PM EDT 07/09/2025 1:59 PM EDT us Luanne Crawford MD LAB POINT OF CARE TEST DOCKED DEVICE UNSOLICITED RESULTS Final Result Performing Organization Address City/[facility]/ZIP Co de Phone Number [facility] [address] [place] [address] * Phosphorus (07/09/2025 1:21 PM EDT) Phosphorus, Plasma 4.2 2.5 - 4.5 mg/dL 07/09/2025 2:49 PM EDT [facility] Blood Arterial blood specimen / Unknown Arterial Line / Unknown 07/09/2025 1:21 PM EDT 07/09/2025 2:01 PM EDT Luanne Crawford MD LAB BLOOD ORDERABLES Final Result Performing Organization Address City/[facility]/ZIP Co de Phone Number [facility] [address] [place] [address] * Magnesium (07/09/2025 1:21 PM EDT) Magnesium, Plasma 2.3 1.9 - 2.4 mg/dL 07/09/2025 2:49 PM EDT [facility] Blood Arterial blood specimen / Unknown Arterial Line / Unknown 07/09/2025 1:21 PM EDT 07/09/2025 2:01 PM EDT Luanne Crawford MD LAB BLOOD ORDERABLES Final Result Performing Organization Address City/[facility]/ZIP Co de Phone Number [facility] [address] [place] [address] * (ABNORMAL) Basic metabolic panel (07/09/2025 1:21 PM EDT) Glucose, Plasma 100(H) 74 - 99 mg/dL 07/09/2025 2:49 PM EDT [facility] BUN, Plasma 26(H) 7 - 21 mg/dL 07/09/2025 2:49 PM EDT [facility] Creatinine, Plasma 1.42(H) 0.60 - 1.10 mg/dL 07/09/2025 2:49 PM EDT [facility] BUN/Creatinine Ratio 18 07/09/2025 2:49 PM EDT [facility] Sodium, Plasma 140 136 - 145 mmol/L 07/09/2025 2:49 PM EDT [facility] Potassium, Plasma 3.7 3.6 - 4.9 mmol/L 07/09/2025 2:49 PM EDT [facility] Chloride, Plasma 104 97 - 107 mmol/L 07/09/2025 2:49 PM EDT [facility] CO2, Plasma 24 22 - 29 mmol/L 07/09/2025 2:49 PM EDT [facility] Anion Gap 12 6 - 16 mmol/L 07/09/2025 2:49 PM EDT [facility] Total Calcium, Plasma 9.1 8.9 - 10.2 mg/dL 07/09/2025 2:49 PM EDT [facility] eGFRcr 45.4 mL/min/1.7 3m*2 07/09/2025 2:49 PM EDT [facility] Comment:Reported eGFRcr in m L/min/1.73m2 is based the CKD-EPI 2020 equation that does not use a race coefficient. Blood Arterial blood specimen / Unknown Arterial Line / Unknown 07/09/2025 1:21 PM EDT 07/09/2025 2:01 PM EDT us Luanne Crawford MD LAB BLOOD ORDERABLES Final Result [facility] [address] [place] [address] * (ABNORMAL) POCT glucose meter (07/09/2025 1:20 PM EDT) POCT Glucose 103(H) 74 - 99 mg/dL 07/09/2025 1:22 PM EDT [facility] Comment:Accuracy of a glucos e result [...] 07/09/2025 1:22 PM EDT [facility] Lens Grinder ID Jeana Bear 07/09/2025 1:22 PM EDT [facility] Device ID [id number] 07/09/2025 1:22 PM EDT [facility] Specimen Type POC Arterial 07/09/2025 1:22 PM EDT [facility] Blood Arterial blood specimen / Unknown 07/09/2025 1:20 PM EDT 07/09/2025 1:22 PM EDT Luanne Crawofrd MD LAB POINT OF CARE TEST DOCKED DEVICE UNSOLICITED RESULTS Final Result Performing Organization Address City/[facility] Co de Phone Number [facility] [address] [place] [address] * (ABNORMAL) POCT glucose meter (07/09/2025 12:44 PM EDT) POCT Glucose 110(H) 74 - 99 mg/dL 07/09/2025 12:45 PM EDT [facility] Comment:Accuracy of a [...] Comment 07/09/2025 12:45 PM EDT [facility] Lens Grinder ID Jeana Bear 07/09/2025 12:45 PM EDT [facility] Device ID [id number] 07/09/2025 12:45 PM EDT [facility] Specimen Type POC Capillary 07/09/2025 12:45 PM EDT [facility] Blood Capillary blood specimen / Unknown 07/09/2025 12:44 PM EDT 07/09/2025 12:45 PM EDT Luanne Crawford MD LAB POINT OF CARE TEST DOCKED DEVICE UNSOLICITED RESULTS Final Result Performing Organization Address City/[facility]/ZIP Co de Phone Number [facility] [address] [place] [address] * (ABNORMAL) POCT glucose meter (07/09/2025 12:19 PM EDT) POCT Glucose 62(L) 74 - 99 mg/dL 07/09/2025 12:21 PM EDT [facility] Comment:Accuracy of a [...] for testing. Comment 07/09/2025 12:21 PM EDT [facility] Lens Grinder ID Jeana Bear 07/09/2025 12:21 PM EDT [facility] Device ID [id number] 07/09/2025 12:21 PM EDT [facility] Specimen Type POC Capillary 07/09/2025 12:21 PM EDT [facility] Blood Capillary blood specimen / Unknown 07/09/2025 12:19 PM EDT 07/09/2025 12:21 PM EDT us Luanne Crawford MD LAB POINT OF CARE TEST DOCKED DEVICE UNSOLICITED RESULTS Final Result Performing Organization Address [facility] Co de Phone Number [facility] [address] [place] [address] * Blood Culture (Aerobic/Anaerobet Set) (07/09/2025 10:35 AM EDT) [facility] Culture No growth at day 5 KAROLINA 07/14/2025 12:02 PM EDT [facility] Blood Structure of antecubital vein / Unknown Venipuncture / Unknown 07/09/2025 10:35 AM EDT 07/09/2025 10:50 AM EDT us My Charles MD LAB MICROBIOLOGY - GENE RAL ORDERABLES Final Result [facility] [address] [place] [address] * Blood Culture (Aerobic/Anaerobet Set) (07/09/2025 10:35 AM EDT) Culture No growth at day 5 KAROLINA 07/14/2025 12:02 PM EDT [facility] Blood Structure of antecubital vein / Unknown Venipuncture / Unknown 07/09/2025 10:35 AM EDT 07/09/2025 10:50 AM EDT us My Charles MD LAB MICROBIOLOGY - GENE RAL ORDERABLES Final Result [facility] [address] [place] [address] * (ABNORMAL) POCT glucose meter (07/09/2025 10:04 AM EDT) [facility] POCT Glucose 114(H) 74 - 99 mg/dL [...] Comment 07/09/2025 10:05 AM EDT [facility] Lens Grinder ID Jeana Bear 07/09/2025 10:05 AM EDT [facility] Device ID [id number] 07/09/2025 10:05 AM EDT [facility] Specimen Type POC Capillary 07/09/2025 10:05 AM EDT [facility] Blood Capillary blood specimen / Unknown 07/09/2025 10:04 AM EDT 07/09/2025 10:05 AM EDT us Luanne Crawford MD LAB POINT OF CARE TEST DOCKED DEVICE UNSOLICITED RESULTS Final Result [facility] [address] [place] [address] * Multi Drug Resistance Test (07/09/2025 9:46 AM EDT) Culture No growth at day 1 07/10/2025 11:58 AM EDT [facility] Swab (Nares and Leann Rectal) Non-blood Collection / Unknown 07/09/2025 9:46 AM EDT 07/09/2025 10:09 AM EDT Narrative [facility] - 07/10/2025 11:58 AM EDT This test was developed and its performance characteristics determined by the [facility]. Although the media is FDA-approved, it is not FDA-approved for all specimen types submitted. The FDA has determined that such clearance or approval is not necessary. This test is used for surveillance purposes. It should not be regarded as investigational or for research. The [facility] is certified under the Clinical Laboratory Improvement Amendments of 1988 (CLIA-88) as qualified to perform high complexity clinical laboratory testing. us Luanne Crawford MD LAB MICROBIOLOGY - GENERAL ORDERABLES Final Result [facility] [address] [place] [address] * (ABNORMAL) Blood gas, arterial (07/09/2025 8:47 AM EDT) pH, Arterial 7.30(L) 7.35 - 7.45 LAB HEMATOLOGY METHOD 07/09/2025 8:55 AM EDT [facility] pCO2, Arterial 53(H) 35 - 48 mmHg LAB HEMATOLOGY METHOD 07/09/2025 8:55 AM EDT [facility] pO2, Arterial 173(H) 83 - 108 mmHg LAB HEMATOLOGY METHOD 07/09/2025 8:55 AM EDT [facility] SO2, Measured, Arterial 98 94 - 98 % LAB HEMATOLOGY METHOD 07/09/2025 8:55 AM EDT [facility] Base Excess, Arterial -0.8 -2.0 - 3.0 mmol/L LAB HEMATOLOGY METHOD 07/09/2025 8:55 AM EDT [facility] Bicarbonate, Calculated, Arterial 26 22 - 26 mmol/L LAB HEMATOLOGY METHOD 07/09/2025 8:55 AM EDT [facility] Hematocrit, Whole Blood 27.3(L) 34.0 - 45.0 % LAB HEMATOLOGY METHOD 07/09/2025 8:55 AM EDT [facility] Sodium, Whole Blood 140 136 - 145 mmol/L LAB HEMATOLOGY METHOD 07/09/2025 8:55 AM EDT [facility] Potassium, Whole Blood 2.9(L) 3.6 - 4.9 mmol/L LAB HEMATOLOGY METHOD 07/09/2025 8:55 AM EDT [facility] Chloride, Whole Blood 106 97 - 107 mmol/L LAB HEMATOLOGY METHOD 07/09/2025 8:55 AM EDT [facility] Glucose, Whole Blood 155(H) 74 - 99 mg/dL LAB HEMATOLOGY METHOD 07/09/2025 8:55 AM EDT [facility] Ionized Calcium, Whole Blood 5.0 4.6 - 5.1 mg/dL LAB HEMATOLOGY METHOD 07/09/2025 8:55 AM EDT [facility] Lactate, Arterial, Whole Blood 1.4 0.5 - 1.6 mmol/L LAB HEMATOLOGY METHOD 07/09/2025 8:55 AM EDT [facility] Blood Arterial blood specimen / Unknown Arterial Line / Unknown 07/09/2025 8:47 AM EDT 07/09/2025 8:54 AM EDT us Dorcas Hennessy MD LAB BLOOD ORDERABLES Final Resul t [facility] [address] [place] [address] * (ABNORMAL) POCT glucose meter (07/09/2025 8:01 AM EDT) POCT Glucose 200(H) 74 - 99 mg/dL 07/09/2025 8:03 AM EDT [facility] Comment:Accuracy of a glucos e result [...] for testing. Comment 07/09/2025 8:03 AM EDT [facility] Lens Grinder ID Jeana Bear 07/09/2025 8:03 AM EDT [facility] Device ID [id number] 07/09/2025 8:03 AM EDT [facility] Specimen Type POC Capillary 07/09/2025 8:03 AM EDT [facility] Blood Capillary blood specimen / Unknown 07/09/2025 8:01 AM EDT 07/09/2025 8:03 AM EDT us Luanne Crawford MD LAB POINT OF CARE TEST DOCKED DEVICE UNSOLICITED RESULTS Final Result Performing Organization Address City/State/[facility] Co de Phone Number [facility] [address] [place] [address] * [place] [facility], E/M 30-74 MINUTES (07/09/2025 7:15 [...] 99 mg/dL 07/09/2025 6:20 AM EDT [facility] Comment:Accuracy [...] Comment 07/09/2025 6:20 AM EDT [facility] Lens Grinder ID Cheyanne Briceño 07/09/2025 6:20 AM EDT [facility] Device ID [id number] 07/09/2025 6:20 AM EDT [facility] Specimen Type POC Arterial 07/09/2025 6:20 AM EDT [facility] Blood Arterial blood specimen / Unknown 07/09/2025 6:05 AM EDT 07/09/2025 6:20 AM EDT Luanne Crawford MD LAB POINT OF CARE TEST DOCKED DEVICE UNSOLICITED RESULTS Final Result Performing Organization Address City/[facility] Co de Phone Number [facility] [address] [place] [address] * (ABNORMAL) Hemoglobin A1c (07/09/2025 4:57 AM EDT) Hemoglobin A1c 7.5(H) <5.7 % 07/09/2025 12:09 PM EDT [facility] Blood Arterial blood specimen / Unknown Venipuncture / Unknown 07/09/2025 4:57 AM EDT 07/09/2025 5:07 AM EDT Narrative [facility] - 07/09/2025 12:09 PM EDT HA1C Interpretive Data: Diagnosis of Diabetes: Diabetic > or = 6.5% Pre-diabetic 5.7 to 6.4% Non-diabetic < or = 5.6% Glycemic Targets for Type I and Type II Diabetics: Non- Adults <7.0% Adults <6.0% Children and Adolescents <7.5% Source: [place] [employer]. Standards of medical care in diabetes,2017. Diabetes Care.2017:40 (suppl 1):S1-S135. us Dorcas Hennessy MD LAB BLOOD ORDERABLES Final Resul t [facility] [address] [place] [address] * Phosphorus (07/09/2025 4:57 AM EDT) Phosphorus, Plasma 4.1 2.5 - 4.5 mg/dL 07/09/2025 5:35 AM EDT [facility] Blood Arterial blood specimen / Unknown Venipuncture / Unknown 07/09/2025 4:57 AM EDT 07/09/2025 5:06 AM EDT Luanne Crawford MD LAB BLOOD ORDERABLES Final Result Performing Organization Address City/[facility]/ZIP Co de Phone Number [facility] [address] [place] [address] * Magnesium, Plasma (07/09/2025 4:57 AM EDT) Magnesium, Plasma 2.2 1.9 - 2.4 mg/dL 07/09/2025 5:35 AM EDT [facility] Blood Arterial blood specimen / Unknown Venipuncture / Unknown 07/09/2025 4:57 AM EDT 07/09/2025 5:06 AM EDT Luanne Crawford MD LAB BLOOD ORDERABLES Final Result [facility] [address] [place] [address] * (ABNORMAL) Basic Metabolic Panel, Plasma (07/09/2025 4:57 AM EDT) Glucose, Plasma 235(H) 74 - 99 mg/dL 07/09/2025 5:35 AM EDT [facility] BUN, Plasma 30(H) 7 - 21 mg/dL 07/09/2025 5:35 AM EDT [facility] Creatinine, Plasma 1.58(H) 0.60 - 1.10 mg/dL 07/09/2025 5:35 AM EDT [facility] BUN/Creatinine Ratio 19 07/09/2025 5:35 AM EDT [facility] Sodium, Plasma 136 136 - 145 mmol/L 07/09/2025 5:35 AM EDT [facility] Potassium, Plasma 3.5(L) 3.6 - 4.9 mmol/L 07/09/2025 5:35 AM EDT [facility] Chloride, Plasma 101 97 - 107 mmol/L 07/09/2025 5:35 AM EDT [facility] CO2, Plasma 23 22 - 29 mmol/L 07/09/2025 5:35 AM EDT [facility] Anion Gap 12 6 - 16 mmol/L 07/09/2025 5:35 AM EDT [facility] Total Calcium, Plasma 9.2 8.9 - 10.2 mg/dL 07/09/2025 5:35 AM EDT [facility] eGFRcr 40.0 mL/min/1.7 3m*2 07/09/2025 5:35 AM EDT [facility] Comment:Reported eGFRcr in m L/min/1.73m2 is based the CKD-EPI 2020 equation that does not use a race coefficient. Blood Arterial blood specimen / Unknown Venipuncture / Unknown 07/09/2025 4:57 AM EDT 07/09/2025 5:06 AM EDT us Luanne Crawford MD LAB BLOOD ORDERABLES Final Result [facility] [address] [place] [address] * (ABNORMAL) CBC W/O Differential (07/09/2025 4:57 AM EDT) WBC Count 32.25(H) 3.70 - 10.30 10*3/uL LAB HEMATOLOGY METHOD 07/09/2025 5:15 AM EDT [facility] RBC Count 3.89(L) 3.90 - 5.20 10*6/uL LAB HEMATOLOGY METHOD 07/09/2025 5:15 AM EDT [facility] HGB 11.0(L) 11.2 - 15.7 g/dL LAB HEMATOLOGY METHOD 07/09/2025 5:15 AM EDT [facility] HCT 33.4(L) 34.0 - 45.0 % LAB HEMATOLOGY METHOD 07/09/2025 5:15 AM EDT [facility] Platelet Count 358 155 - 369 10*3/uL LAB HEMATOLOGY METHOD 07/09/2025 5:15 AM EDT [facility] MCV 86 79 - 98 fL LAB HEMATOLOGY METHOD 07/09/2025 5:15 AM EDT [facility] MCH 28.3 26.0 - 32.0 pg LAB HEMATOLOGY METHOD 07/09/2025 5:15 AM EDT [facility] MCHC 32.9 30.7 - 35.5 g/dL LAB HEMATOLOGY METHOD 07/09/2025 5:15 AM EDT [facility] RDW 17.4(H) 11.5 - 14.5 % LAB HEMATOLOGY METHOD 07/09/2025 5:15 AM EDT [facility] MPV 10.0 8.8 - 12.5 fL LAB HEMATOLOGY METHOD 07/09/2025 5:15 AM EDT [facility] nRBC 0.0 <=0.0 per 100 WBCs LAB HEMATOLOGY METHOD 07/09/2025 5:15 AM EDT [facility] Blood Arterial blood specimen / Unknown Venipuncture / Unknown 07/09/2025 4:57 AM EDT 07/09/2025 5:07 AM EDT us Luanne Crawford MD LAB BLOOD ORDERABLES Final Result [facility] [address] [place] [address] * (ABNORMAL) POCT glucose meter (07/09/2025 4:03 [...] Comment 07/09/2025 4:05 AM EDT [facility] Lens Grinder ID Cheyanne Briceño 07/09/2025 4:05 AM EDT [facility] Device ID [id number] 07/09/2025 4:05 AM EDT [facility] Specimen Type POC Arterial 07/09/2025 4:05 AM EDT [facility] Blood Arterial blood specimen / Unknown 07/09/2025 4:03 AM EDT 07/09/2025 4:05 AM EDT Luanne Crawford MD LAB POINT OF CARE TEST DOCKED DEVICE UNSOLICITED RESULTS Final Result [facility] [address] [place] [address] * XR Chest 1 View (07/09/2025 3:42 [...] - 99 mg/dL 07/09/2025 2:17 AM EDT [facility] Comment:Accuracy of a [...] for testing. Comment 07/09/2025 2:17 AM EDT [facility] Lens Grinder ID Cheyanne Briceño 07/09/2025 2:17 AM EDT [facility] Device ID [id number] 07/09/2025 2:17 AM EDT [facility] Specimen Type POC Arterial 07/09/2025 2:17 AM EDT [facility] Blood Arterial blood specimen / Unknown 07/09/2025 2:15 AM EDT 07/09/2025 2:17 AM EDT us Luanne Crawford MD LAB POINT OF CARE TEST DOCKED DEVICE UNSOLICITED RESULTS Final Result Performing Organization Address City/State/[facility] Co de Phone Number [facility] [address] [place], [place] [id number] * (ABNORMAL) Blood gas panel, arterial (07/09/2025 2:11 AM EDT) pH, Arterial 7.25(LL) 7.35 - 7.45 LAB HEMATOLOGY METHOD 07/09/2025 2:23 AM EDT [facility] pCO2, Arterial 56(H) 35 - 48 mmHg LAB HEMATOLOGY METHOD 07/09/2025 2:23 AM EDT [facility] pO2, Arterial 67(L) 83 - 108 mmHg LAB HEMATOLOGY METHOD 07/09/2025 2:23 AM EDT [facility] SO2, Measured, Arterial 91(L) 94 - 98 % LAB HEMATOLOGY METHOD 07/09/2025 2:23 AM EDT [facility] Base Excess, Arterial -2.7(L) -2.0 - 3.0 mmol/L LAB HEMATOLOGY METHOD 07/09/2025 2:23 AM EDT [facility] Bicarbonate, Calculated, Arterial 25 22 - 26 mmol/L LAB HEMATOLOGY METHOD 07/09/2025 2:23 AM EDT [facility] Hematocrit, Whole Blood 31.5(L) 34.0 - 45.0 % LAB HEMATOLOGY METHOD 07/09/2025 2:23 AM EDT [facility] Sodium, Whole Blood 135(L) 136 - 145 mmol/L LAB HEMATOLOGY METHOD 07/09/2025 2:23 AM EDT [facility] Potassium, Whole Blood 3.5(L) 3.6 - 4.9 mmol/L LAB HEMATOLOGY METHOD 07/09/2025 2:23 AM EDT [facility] Chloride, Whole Blood 103 97 - 107 mmol/L LAB HEMATOLOGY METHOD 07/09/2025 2:23 AM EDT [facility] Glucose, Whole Blood 279(H) 74 - 99 mg/dL LAB HEMATOLOGY METHOD 07/09/2025 2:23 AM EDT [facility] Ionized Calcium, Whole Blood 4.9 4.6 - 5.1 mg/dL LAB HEMATOLOGY METHOD 07/09/2025 2:23 AM EDT [facility] Lactate, Arterial, Whole Blood 1.2 0.5 - 1.6 mmol/L LAB HEMATOLOGY METHOD 07/09/2025 2:23 AM EDT [facility] Blood Arterial blood specimen / Unknown Arterial Puncture / Unknown 07/09/2025 2:11 AM EDT 07/09/2025 2:21 AM EDT us Luanne Crawford MD LAB BLOOD ORDERABLES Final Result [facility] [address] [place] [address] * (ABNORMAL) POCT glucose meter (07/09/2025 1:22 AM EDT) POCT Glucose 271(H) 74 - 99 mg/dL 07/09/2025 1:24 AM EDT [facility] Comment:Accuracy of [...] for testing. Comment 07/09/2025 1:24 AM EDT [facility] Lens Grinder ID Cheyanne Briceño 07/09/2025 1:24 AM EDT [facility] Device ID [id number] 07/09/2025 1:24 AM EDT [facility] Specimen Type POC Arterial 07/09/2025 1:24 AM EDT [facility] Blood Arterial blood specimen / Unknown 07/09/2025 1:22 AM EDT 07/09/2025 1:24 AM EDT Luanne Crawford MD LAB POINT OF CARE TEST DOCKED DEVICE UNSOLICITED RESULTS Final Result [facility] [address] [place] [address] * (ABNORMAL) POCT glucose meter (07/09/2025 12:06 AM EDT) [facility] POCT Glucose 311(H) 74 - 99 mg/dL [...] for testing. Comment 07/09/2025 12:08 AM EDT [facility] Lens Grinder ID Cheyanne Briceño 07/09/2025 12:08 AM EDT [facility] Device ID [id number] 07/09/2025 12:08 AM EDT [facility] Specimen Type POC Arterial 07/09/2025 12:08 AM EDT [facility] Blood Arterial blood specimen / Unknown 07/09/2025 12:06 AM EDT 07/09/2025 12:08 AM EDT us Luanne Crawford MD LAB POINT OF CARE TEST DOCKED DEVICE UNSOLICITED RESULTS Final Result Performing Organization Address City/[facility]/ZIP Co de Phone Number [facility] [address] [place] [address] * APTT (07/08/2025 11:53 PM EDT) aPTT 25 25 - 35 sec LAB COAGULATION METHOD 07/09/2025 12:32 AM EDT [facility] Blood Venous blood specimen / Unknown Venipuncture / Unknown 07/08/2025 11:53 PM EDT 07/08/2025 11:59 PM EDT us Luanne Crawford MD LAB BLOOD ORDERABLES Final Result Performing Organization Address [facility] Co de Phone Number [facility] [address] [place] [address] * (ABNORMAL) Protime-INR (07/08/2025 11:53 PM EDT) Prothrombin Time 15.2(H) 12.0 - 14.3 sec LAB COAGULATION METHOD 07/09/2025 12:32 AM EDT [facility] INR 1.2(H) 0.9 - 1.1 LAB COAGULATION METHOD 07/09/2025 12:32 AM EDT [facility] Blood Venous blood specimen / Unknown Venipuncture / Unknown 07/08/2025 11:53 PM EDT 07/08/2025 11:59 PM EDT Narrative [facility] - 07/09/2025 12:32 AM EDT OPTIMAL INR RANGES FOR PATIENT ON ORAL ANTICOAGULANT THERAPY Prevention of venous thromboembolism INR 2.0 to 3.0 In patients with heart disease: Atrial fibrillation INR 2.0 to 3.0 Valvular heart disease INR 2.0 to 3.0 Tissue heart valves INR 2.0 to 3.0 Mechanical prosthetic valves INR 2.5 to 3.5 Prevention of recurrent NM INR 2.5 to 3.5 us Luanne Crawford MD LAB BLOOD ORDERABLES Final Result Performing Organization Address City/[facility]/ZIP Co de Phone Number [facility] [address] [place] [address] * Phosphorus, Plasma (07/08/2025 11:52 PM EDT) Phosphorus, Plasma 3.6 2.5 - 4.5 mg/dL 07/09/2025 12:27 AM EDT [facility] Blood Venous blood specimen / Unknown Venipuncture / Unknown 07/08/2025 11:52 PM EDT 07/08/2025 11:59 PM EDT us Luanne Crawford MD LAB BLOOD ORDERABLES Final Result Performing Organization Address [facility]/ZIP Co de Phone Number [facility] [address] [place] [address] * (ABNORMAL) Magnesium, Plasma (07/08/2025 11:52 PM EDT) Magnesium, Plasma 1.8(L) 1.9 - 2.4 mg/dL 07/09/2025 12:27 AM EDT [facility] Blood Venous blood specimen / Unknown Venipuncture / Unknown 07/08/2025 11:52 PM EDT 07/08/2025 11:59 PM EDT us Luanne Crawford MD LAB BLOOD ORDERABLES Final Result Performing Organization Address [facility]/ZIP Co de Phone Number [facility] [address] [place] [address] * (ABNORMAL) Basic Metabolic Panel, Plasma (07/08/2025 11:52 PM EDT) Glucose, Plasma 314(H) 74 - 99 mg/dL 07/09/2025 12:27 AM EDT [facility] BUN, Plasma 32(H) 7 - 21 mg/dL 07/09/2025 12:27 AM EDT [facility] Creatinine, Plasma 1.80(H) 0.60 - 1.10 mg/dL 07/09/2025 12:27 AM EDT [facility] BUN/Creatinine Ratio 18 07/09/2025 12:27 AM EDT [facility] Sodium, Plasma 136 136 - 145 mmol/L 07/09/2025 12:27 AM EDT [facility] Potassium, Plasma 3.6 3.6 - 4.9 mmol/L 07/09/2025 12:27 AM EDT [facility] Chloride, Plasma 100 97 - 107 mmol/L 07/09/2025 12:27 AM EDT [facility] CO2, Plasma 23 22 - 29 mmol/L 07/09/2025 12:27 AM EDT [facility] Anion Gap 13 6 - 16 mmol/L 07/09/2025 12:27 AM EDT [facility] Total Calcium, Plasma 8.9 8.9 - 10.2 mg/dL 07/09/2025 12:27 AM EDT [facility] eGFRcr 34.2 mL/min/1.7 3m*2 07/09/2025 12:27 AM EDT [facility] Comment:Reported eGFRcr in m L/min/1.73m2 is based the CKD-EPI 2020 equation that does not use a race coefficient. Blood Venous blood specimen / Unknown Venipuncture / Unknown 07/08/2025 11:52 PM EDT 07/08/2025 11:59 PM EDT us Luanne Crawford MD LAB BLOOD ORDERABLES Final Result [facility] [address] [place] [address] * (ABNORMAL) CBC W/O Differential (07/08/2025 11:52 PM EDT) WBC Count 22.50(H) 3.70 - 10.30 10*3/uL LAB HEMATOLOGY METHOD 07/09/2025 12:16 AM EDT [facility] RBC Count 3.60(L) 3.90 - 5.20 10*6/uL LAB HEMATOLOGY METHOD 07/09/2025 12:16 AM EDT [facility] HGB 10.0(L) 11.2 - 15.7 g/dL LAB HEMATOLOGY METHOD 07/09/2025 12:16 AM EDT [facility] HCT 30.8(L) 34.0 - 45.0 % LAB HEMATOLOGY METHOD 07/09/2025 12:16 AM EDT [facility] Platelet Count 273 155 - 369 10*3/uL LAB HEMATOLOGY METHOD 07/09/2025 12:16 AM EDT [facility] MCV 86 79 - 98 fL LAB HEMATOLOGY METHOD 07/09/2025 12:16 AM EDT [facility] MCH 27.8 26.0 - 32.0 pg LAB HEMATOLOGY METHOD 07/09/2025 12:16 AM EDT [facility] MCHC 32.5 30.7 - 35.5 g/dL LAB HEMATOLOGY METHOD 07/09/2025 12:16 AM EDT [facility] RDW 16.9(H) 11.5 - 14.5 % LAB HEMATOLOGY METHOD 07/09/2025 12:16 AM EDT [facility] MPV 10.3 8.8 - 12.5 fL LAB HEMATOLOGY METHOD 07/09/2025 12:16 AM EDT [facility] nRBC 0.0 <=0.0 per 100 WBCs LAB HEMATOLOGY METHOD 07/09/2025 12:16 AM EDT [facility] Blood Venous blood specimen / Unknown Venipuncture / Unknown 07/08/2025 11:52 PM EDT 07/08/2025 11:59 PM EDT us Luanne Crawford MD LAB BLOOD ORDERABLES Final Result [facility] [address] [place] [address] * Richie auris Surveillance by PCR (07/08/2025 11:50 PM EDT) Richie auris PCR Result Not Detected Not Detected 07/09/2025 11:26 AM EDT [facility] Swab (Axilla and Groin) Non-blood Collection / Unknown 07/08/2025 11:50 PM EDT 07/09/2025 12:17 AM EDT Narrative [facility] - 07/09/2025 11:26 AM EDT This PCR assay was developed and its performance characteristics determined by [facility] as appropriate for clinical purposes. This assay has not been cleared or approved by the FDA, but is performed in a CLIA regulated laboratory that is qualified to perform high-complexity testing. Luanne Crawford MD LAB MICROBIOLOGY - GENERAL ORDERABLES Final Result Performing Organization Address [facility] Co de Phone Number [facility] [address] [place] [address] * Multi Drug Resistance Test (07/08/2025 11:50 PM EDT) Culture No growth at day 1 07/10/2025 5:45 AM EDT [facility] Swab (Nares and Leann Rectal) Non-blood Collection / Unknown 07/08/2025 11:50 PM EDT 07/09/2025 12:17 AM EDT Narrative [facility] - 07/10/2025 5:45 AM EDT This test was developed and its performance characteristics determined by the [facility]. Although the media is FDA-approved, it is not FDA-approved for all specimen types submitted. The FDA has determined that such clearance or approval is not necessary. This test is used for surveillance purposes. It should not be regarded as investigational or for research. The [facility] is certified under the Clinical Laboratory Improvement Amendments of 1988 (CLIA-88) as qualified to perform high complexity clinical laboratory testing. Luanne Crawford MD LAB MICROBIOLOGY - GENERAL ORDERABLES Final Result Performing Organization Address [facility] Co de Phone Number [facility] [address] [place] [address] * (ABNORMAL) Blood gas, arterial (07/08/2025 11:50 PM EDT) pH, Arterial 7.27(L) 7.35 - 7.45 LAB HEMATOLOGY METHOD 07/09/2025 12:00 AM EDT [facility] pCO2, Arterial 53(H) 35 - 48 mmHg LAB HEMATOLOGY METHOD 07/09/2025 12:00 AM EDT [facility] pO2, Arterial 114(H) 83 - 108 mmHg LAB HEMATOLOGY METHOD 07/09/2025 12:00 AM EDT [facility] SO2, Measured, Arterial 99(H) 94 - 98 % LAB HEMATOLOGY METHOD 07/09/2025 12:00 AM EDT [facility] Base Excess, Arterial -3.1(L) -2.0 - 3.0 mmol/L LAB HEMATOLOGY METHOD 07/09/2025 12:00 AM EDT [facility] Bicarbonate, Calculated, Arterial 24 22 - 26 mmol/L LAB HEMATOLOGY METHOD 07/09/2025 12:00 AM EDT [facility] Hematocrit, Whole Blood 31.0(L) 34.0 - 45.0 % LAB HEMATOLOGY METHOD 07/09/2025 12:00 AM EDT [facility] Sodium, Whole Blood 134(L) 136 - 145 mmol/L LAB HEMATOLOGY METHOD 07/09/2025 12:00 AM EDT [facility] Potassium, Whole Blood 3.5(L) 3.6 - 4.9 mmol/L LAB HEMATOLOGY METHOD 07/09/2025 12:00 AM EDT [facility] Chloride, Whole Blood 101 97 - 107 mmol/L LAB HEMATOLOGY METHOD 07/09/2025 12:00 AM EDT [facility] Glucose, Whole Blood 315(H) 74 - 99 mg/dL LAB HEMATOLOGY METHOD 07/09/2025 12:00 AM EDT [facility] Ionized Calcium, Whole Blood 5.1 4.6 - 5.1 mg/dL LAB HEMATOLOGY METHOD 07/09/2025 12:00 AM EDT [facility] Lactate, Arterial, Whole Blood 1.7(H) 0.5 - 1.6 mmol/L LAB HEMATOLOGY METHOD 07/09/2025 12:00 AM EDT [facility] Blood Arterial blood specimen / Unknown Arterial Puncture / Unknown 07/08/2025 11:50 PM EDT 07/08/2025 11:59 PM EDT us Richard Betts CRNA LAB BLOOD ORDERABLES Sarah bennett Result [facility] [address] [place] [address] * (ABNORMAL) POCT glucose meter (07/08/2025 11:49 [...] Comment 07/08/2025 11:50 PM EDT [facility] Lens Grinder ID Mary Cotto 07/08/2025 11:50 PM EDT [facility] Device ID [id number] 07/08/2025 11:50 PM EDT [facility] Specimen Type POC Arterial 07/08/2025 11:50 PM EDT [facility] Blood Arterial blood specimen / Unknown 07/08/2025 11:49 PM EDT 07/08/2025 11:50 PM EDT Luanne Crawford MD LAB POINT OF CARE TEST DOCKED DEVICE UNSOLICITED RESULTS Final Result [facility] [address] [place] [address] * (ABNORMAL) Tissue Culture and Gram Stain (07/08/2025 10:48 PM EDT) Culture Light Growth 07/13/2025 1:13 PM EDT [facility] Culture 1+ Schaalia turicensis (formerly known as Actinomyces turicensis)(A) 07/13/2025 1:13 PM EDT [facility] Comment: The organism value for this result has been updated. These results have been appended to the previously preliminary verified report. This is a corrected result. Previous organism was Gram positive anthony on 07/11/2025 at 1052 EDT. Culture 1+ Staphylococcus hominis(A) 07/13/2025 1:13 PM EDT [facility] Comment: This isolate has been identified using the FDA Approved Break [employer] CA System The organism value for this result has been updated. These results have been appended to the previously preliminary verified report. Gram Stain Result Few Polymorphonuclear leukocytes(A) 07/13/2025 1:13 PM EDT [facility] Gram Stain Result Numerous Gram negative rods(A) 07/13/2025 1:13 PM EDT [facility] Gram Stain Result Few Gram positive cocci in pairs(A) 07/13/2025 1:13 PM EDT [facility] Tissue Topography unknown / Unknown 07/08/2025 10:48 PM EDT 07/09/2025 12:14 AM EDT Comment:Pre-op diagnosis: Necrotizing fasciitis (CMS/HCC) [M72.6] us Luanne Crawford MD LAB MICROBIOLOGY - GENERAL ORDERABLES Final Result [facility] [address] [place] [address] * Transfuse fresh frozen plasma (07/08/2025 10:35 PM EDT) Richard Betts TREE SCOUT BLOOD TRANSFUSION ORDERAB LES Final Result * Transfuse RBC (07/08/2025 10:29 PM EDT) Richard N Yongkangg TREE SCOUT BLOOD TRANSFUSION ORDERAB LES Final Result * (ABNORMAL) Blood gas panel, arterial (07/08/2025 10:08 PM EDT) pH, Arterial 7.28(L) 7.35 - 7.45 LAB HEMATOLOGY METHOD 07/08/2025 10:15 PM EDT [facility] pCO2, Arterial 50(H) 35 - 48 mmHg LAB HEMATOLOGY METHOD 07/08/2025 10:15 PM EDT [facility] pO2, Arterial 121(H) 83 - 108 mmHg LAB HEMATOLOGY METHOD 07/08/2025 10:15 PM EDT [facility] SO2, Measured, Arterial 99(H) 94 - 98 % LAB HEMATOLOGY METHOD 07/08/2025 10:15 PM EDT [facility] Base Excess, Arterial -3.6(L) -2.0 - 3.0 mmol/L LAB HEMATOLOGY METHOD 07/08/2025 10:15 PM EDT [facility] Bicarbonate, Calculated, Arterial 23 22 - 26 mmol/L LAB HEMATOLOGY METHOD 07/08/2025 10:15 PM EDT [facility] Hematocrit, Whole Blood 29.9(L) 34.0 - 45.0 % LAB HEMATOLOGY METHOD 07/08/2025 10:15 PM EDT [facility] Sodium, Whole Blood 133(L) 136 - 145 mmol/L LAB HEMATOLOGY METHOD 07/08/2025 10:15 PM EDT [facility] Potassium, Whole Blood 3.5(L) 3.6 - 4.9 mmol/L LAB HEMATOLOGY METHOD 07/08/2025 10:15 PM EDT [facility] Chloride, Whole Blood 101 97 - 107 mmol/L LAB HEMATOLOGY METHOD 07/08/2025 10:15 PM EDT [facility] Glucose, Whole Blood 351(H) 74 - 99 mg/dL LAB HEMATOLOGY METHOD 07/08/2025 10:15 PM EDT [facility] Ionized Calcium, Whole Blood 4.5(L) 4.6 - 5.1 mg/dL LAB HEMATOLOGY METHOD 07/08/2025 10:15 PM EDT [facility] Lactate, Arterial, Whole Blood 2.1(H) 0.5 - 1.6 mmol/L LAB HEMATOLOGY METHOD 07/08/2025 10:15 PM EDT [facility] Blood Arterial blood specimen / Unknown 07/08/2025 10:08 PM EDT 07/08/2025 10:14 PM EDT Comment:Pre-op diagnosis: Necrotizing fasciitis (CMS/HCC) [M72.6] us Luanne Crawford MD LAB BLOOD ORDERABLES Final Result [facility] [address] [place] [address] * Surgical Pathology Exam (07/08/2025 10:07 PM EDT) Case Report Surgical Pathology Case: [id number] Authorizing Provider: Luanne Crawford MD Collected: 07/08/20252206 Ordering Location: [facility] A OPERATING ROOM Received: 07/09/2025 0938 Pathologist: Boaz Fernandez MD Specimens: A) - Other (specify site), saphenous vein B) - Other (specify site), right leg 07/10/2025 3:45 PM EDT [facility] Final Diagnosis A. SAPHENOUS VEIN SEGMENT, REMOVAL: - SCLEROTIC VEIN WITH ADVENTITIAL INFLAMMATION. B. RIGHT LEG TISSUE DEBRIDEMENT: - ACUTE NECROTIZING FASCIITIS OF SKIN AND SOFT TISSUE. 07/10/2025 3:45 PM EDT [facility] at 1545 EDT Clinical Information Necrotizing fasciitis; post recent boil self popped wound. 50 y.o. female with PMH of DM, hidradenitis supparativa, current smoker (1.5 ppd), UTI, depression, anxiety, asthma, HLD, Celiac disease, 07/10/2025 3:45 PM EDT [facility] Gross Description A. SAPHENOUS VEIN Specimen is received fresh and placed in formalin labeled saphenous vein. Received is a segment of vessel that measures 8.5 cm in length and up to 0.7 cm in diameter. Specimen is sectioned to reveal a pinpoint lumen with dried blood. [employer] sections are taken and submitted in cassette A1. Cold Time: 8h 56m Abhishek Baptiste MD B. RIGHT LEG Specimen is received fresh labeled right leg. Received are numerous fragments of skin and underlying soft tissue that measure in aggregate 25.0 x 25.0 x 7.5 cm. Scattered areas of skin and soft tissue notable for being green-black, foul-smelling and extensively necrotic. Corporate Licensed Broker sections are taken and submitted in cassettes B1-B2. Abhishek Baptiste MD 07/10/2025 3:45 PM EDT [facility] Note: A resident was involved in the service. I attest I examined the relevant preparations for the specimens and confirmed the diagnosis or interpretation. 07/10/2025 3:45 PM EDT [facility] Tissue Topography unknown / Unknown 07/08/2025 10:07 PM EDT 07/09/2025 7:40 AM EDT Comment:Pre-op diagnosis: Necrotizing fasciitis (CMS/HCC) [M72.6] Tissue specimen (specimen) Topography unknown / Unknown 07/08/2025 10:49 PM EDT 07/09/2025 7:40 AM EDT Comment:Pre-op diagnosis: Necrotizing fasciitis (CMS/HCC) [M72.6] us Luanne Crawford MD LAB PATHOLOGY ORDERABLES F inal Result [facility] [address] [place] [address] * Transfuse fresh frozen plasma (07/08/2025 10:04 PM EDT) us Richard N Yongbang TREE SCOUT BLOOD TRANSFUSION ORDERAB LES Final Result * Transfuse fresh frozen plasma: 1 Units (07/08/2025 10:04 PM EDT) us Richard N Yongbang TREE SCOUT BLOOD TRANSFUSION ORDERAB LES Final Result * Transfuse RBC (07/08/2025 9:41 PM EDT) Richard N Yongbang TREE SCOUT BLOOD TRANSFUSION ORDERAB LES Final Result * Transfuse RBC: 1 Units (07/08/2025 9:41 PM EDT) us Richard N Yongbang TREE SCOUT BLOOD TRANSFUSION ORDERAB LES Final Result * Prepare Fresh Frozen Plasma: 2 Units (07/08/2025 9:24 PM EDT) Product Code K5331M79 CH BLOO D BANK Dispense Status Transfused BLOOD BANK Blood Expiration Date [id number] BLOOD BANK Unit Number [id number] CH B LOOD BANK Product Blood Type 5100 BLOOD BANK Blood Type O+ CH BLOOD BANK Product Code [id number] CH BLOO D BANK Dispense Status Transfused BLOOD BANK Blood Expiration Date [id number] BLOOD BANK Unit Number [id number] CH B LOOD BANK Product Blood Type 5100 BLOOD BANK Blood Type O+ CH BLOOD BANK Blood Venous blood specimen / Unknown us Richard N Yongbang TREE SCOUT BLOOD BANK PRODUCT ORDERA BLES Final Result [facility] BANK [address] [place] [address], [place] * Prepare Leukocyte Reduced RBC: 2 Units (07/08/2025 9:23 PM EDT) Product Code [id number] CH BLOO D BANK Dispense Status Transfused CH BLOOD BANK Blood Expiration Date BLOOD BANK Unit Number [id number] CH B LOOD BANK Product Blood Type 5100 CH BLOOD BANK Blood Type O+ CH BLOOD BANK Crossmatch Compatible CH BLOOD BANK Product Code [id number] CH BLOO D BANK Dispense Status Transfused CH BLOOD BANK Blood Expiration Date BLOOD BANK Unit Number [id number] CH B LOOD BANK Product Blood Type 5100 CH BLOOD BANK Blood Type O+ CH BLOOD BANK Crossmatch Compatible BLOOD BANK Other us Richard Betts CRNA BLOOD BANK PRODUCT ORDERA BLES Final Result BLOOD BANK [address] [place] [address], * (ABNORMAL) Abscess Culture and Gram Stain (07/08/2025 9:06 PM EDT) Culture Light Growth 07/13/2025 1:13 PM EDT [facility] Culture 1+ Mixed skin silvestre(A) 07/13/2025 1:13 PM EDT [facility] Comment: The organism value [...] as Actinomyces turicensis)(A) 07/13/2025 1:13 PM EDT [facility] Comment: This result was determined by MALDI tof Mass spectrometry. This assay was developed and its performance characteristics determined by [facility] as appropriate for clinical purposes. [...] Gram positive cocci(A) 07/13/2025 1:13 PM EDT [facility] Gram Stain Result Few Gram variable rods(A) 07/13/2025 1:13 PM EDT [facility] Gram Stain Result Moderate Gram positive rods(A) 07/13/2025 1:13 PM EDT [facility] Gram Stain Result Numerous Gram negative rods(A) 07/13/2025 1:13 PM EDT [facility] Gram Stain Result Numerous Gram negative coccobacilli(A) 07/13/2025 1:13 PM EDT [facility] Gram Stain Result Moderate Polymorphonuclear leukocytes(A) 07/13/2025 1:13 PM EDT [facility] Swab Topography unknown / Unknown 07/08/2025 9:06 PM EDT 07/08/2025 9:15 PM EDT Comment:Pre-op diagnosis: Necrotizing fasciitis (CMS/HCC) [M72.6] us Luanne Crawford MD LAB MICROBIOLOGY - GENERAL ORDERABLES Final Result [facility] [address] [place] [address] * (ABNORMAL) POCT arterial blood gas gem (07/08/2025 8:51 PM EDT) pH, Arterial 7.28(L) 7.35 - 7.45 07/08/2025 8:53 PM EDT [facility] pCO2, Arterial 53(H) 35 - 48 mm Hg 07/08/2025 8:53 PM EDT [facility] pO2, Arterial 152(H) 83 - 108 mm Hg 07/08/2025 8:53 PM EDT [facility] SO2, Arterial 99(H) 94 - 98 % 07/08/2025 8:53 PM EDT [facility] Base Excess, Arterial -2.3(L) -2 - 3 mmol/L 07/08/2025 8:53 PM EDT [facility] HCO3, Arterial 24.9 22 - 26 mmol/L 07/08/2025 8:53 PM EDT [facility] Total Hemoglobin, Arterial, Whole Blood 10.9(L) 11.2 - 15.7 g/dL 07/08/2025 8:53 PM EDT [facility] Hematocrit, Arterial 33.0(L) 34.0 - 45.0 % 07/08/2025 8:53 PM EDT [facility] Sodium, Arterial 131(L) 136 - 145 mmol/L 07/08/2025 8:53 PM EDT [facility] Potassium, Arterial 3.8 3.6 - 4.9 mmol/L 07/08/2025 8:53 PM EDT [facility] Chloride, Whole Blood 98 97 - 107 mmol/L 07/08/2025 8:53 PM EDT [facility] Glucose, Arterial 418(H) 74 - 99 mg/dL 07/08/2025 8:53 PM EDT [facility] Ionized Calcium, Arterial 4.9 4.6 - 5.1 mg/dL 07/08/2025 8:53 PM EDT [facility] Lactate, Arterial 1.6 0.5 - 1.6 mmol/L 07/08/2025 8:53 PM EDT [facility] Body Temperature 37.0 Celsius 07/08/2025 8:53 PM EDT [facility] pH, Temp Corrected, Arterial 7.28(L) 7.35 - 7.45 07/08/2025 8:53 PM EDT [facility] pCO2, Temp Corrected, Arterial 53(H) 35 - 48 mm Hg 07/08/2025 8:53 PM EDT [facility] pO2, Temp Corrected, Arterial 152(H) 83 - 108 mm Hg 07/08/2025 8:53 PM EDT [facility] Lens Grinder ID Yadi Goel 07/08/2025 8:53 PM EDT [facility] Blood, Arterial Whole blood specimen / Unknown 07/08/2025 8:51 PM EDT 07/08/2025 8:53 PM EDT us Luanne Crawford MD LAB POINT OF CARE TEST DOCKED DEVICE UNSOLICITED RESULTS Final Result [facility] [address] [place] [address] * ED HIV 1/2 Antibody/Antigen Screen w/Reflex to HIV 1/2 Differentiation (07/08/2025 6:14 PM EDT) [facility] HIV 1 & 2 Antibody/Antigen Screen Non Reactive Non Reactive 07/08/2025 7:12 PM EDT [facility] Comment:Screening for HIV 1 & 2 antibodies, and P24 antigen is NONREACTIVE. No confirmatory testing is required. Blood Venous blood specimen / Unknown Venipuncture / Unknown 07/08/2025 6:14 PM EDT 07/08/2025 6:30 PM EDT My Charles MD LAB BLOOD ORDERABLES Fi nal Result Performing Organization Address City/[facility]/ZIP Co de Phone Number [facility] [address] [place] [address] * Hepatitis C Antibody - ED (07/08/2025 6:14 PM EDT) [facility] Hepatitis C Antibody Negative Negative 07/08/2025 7:12 PM EDT [facility] Blood Venous blood specimen / Unknown Venipuncture / Unknown 07/08/2025 6:14 PM EDT 07/08/2025 6:30 PM EDT My Charles MD LAB BLOOD ORDERABLES Fi nal Result Performing Organization Address [facility] [place] [address] * (ABNORMAL) C-Reactive protein (07/08/2025 6:14 PM EDT) [facility] CRP, Plasma 462.2(H) <=8.0 mg/L 07/08/2025 7:18 PM EDT [facility] Blood Venous blood specimen / Unknown Venipuncture / Unknown 07/08/2025 6:14 PM EDT 07/08/2025 6:23 PM EDT Narrative [facility] - 07/08/2025 7:18 PM EDT This CRP test is appropriate for assessment of infection, systemic inflammation and/or tissue injury. To assess cardiovascular disease risk order high sensitivity CRP (CRPH). us My Charles MD LAB BLOOD ORDERABLES Fi nal Result Performing Organization Address City/[facility]/ZIP Co de Phone Number [facility] [address] [place] [address] * (ABNORMAL) Lactic acid, venous (07/08/2025 6:14 PM EDT) Pathologist [facility] Lactate, Venous, Whole Blood 2.6(H) 0.5 - 2.2 mmol/L LAB HEMATOLOGY METHOD 07/08/2025 6:29 PM EDT [facility] Blood Venous blood specimen / Unknown Venipuncture / Unknown 07/08/2025 6:14 PM EDT 07/08/2025 6:23 PM EDT My Charles MD LAB BLOOD ORDERABLES Fi nal Result Performing Organization Address [facility] Co de Phone Number [facility] [address] [place] [address] * Type and screen (07/08/2025 6:14 PM EDT) Pathologist [facility] ABO/Rh O Positive 07/08/2025 6:10 PM EDT BLOOD BANK Antibody Screen Negative 07/08/2025 6:10 PM EDT BLOOD BANK Specimen Expiration 07/11/2025 23:59 07/08/2025 6:10 PM EDT [facility]LO[facility] Blood Venous blood specimen / Unknown Venipuncture / Unknown 07/08/2025 6:14 PM EDT 07/08/2025 6:18 PM EDT My Charles MD LAB BLOOD BANK TEST ORD ERABLES Final Result Performing Organization Address [facility]/ZIP Co de Phone Number BLOOD BANK [address] [place] [address], * (ABNORMAL) PT-INR (07/08/2025 6:14 PM EDT) Prothrombin Time 15.3(H) 12.0 - 14.3 sec 07/08/2025 6:56 PM EDT [facility] INR 1.2(H) 0.9 - 1.1 07/08/2025 6:56 PM EDT [facility] Blood Venous blood specimen / Unknown Venipuncture / Unknown 07/08/2025 6:14 PM EDT 07/08/2025 6:23 PM EDT Narrative [facility] - 07/08/2025 6:56 PM EDT OPTIMAL INR RANGES FOR PATIENT ON ORAL ANTICOAGULANT THERAPY Prevention of venous thromboembolism INR 2.0 to 3.0 In patients with heart disease: Atrial fibrillation INR 2.0 to 3.0 Valvular heart disease INR 2.0 to 3.0 Tissue heart valves INR 2.0 to 3.0 Mechanical prosthetic valves INR 2.5 to 3.5 Prevention of recurrent NM INR 2.5 to 3.5 us My Charles MD LAB BLOOD ORDERABLES Fi nal Result [facility] [address] [place] [address] * (ABNORMAL) CBC w/diff (07/08/2025 6:14 PM EDT) WBC Count 26.15(H) 3.70 - 10.30 10*3/uL LAB HEMATOLOGY METHOD 07/08/2025 9:04 PM EDT [facility] RBC Count 3.97 3.90 - 5.20 10*6/uL LAB HEMATOLOGY METHOD 07/08/2025 9:04 PM EDT [facility] HGB 10.9(L) 11.2 - 15.7 g/dL LAB HEMATOLOGY METHOD 07/08/2025 9:04 PM EDT [facility] HCT 33.6(L) 34.0 - 45.0 % LAB HEMATOLOGY METHOD 07/08/2025 9:04 PM EDT [facility] Platelet Count 329 155 - 369 10*3/uL LAB HEMATOLOGY METHOD 07/08/2025 9:04 PM EDT [facility] MCV 85 79 - 98 fL LAB HEMATOLOGY METHOD 07/08/2025 9:04 PM EDT [facility] MCH 27.5 26.0 - 32.0 pg LAB HEMATOLOGY METHOD 07/08/2025 9:04 PM EDT [facility] MCHC 32.4 30.7 - 35.5 g/dL LAB HEMATOLOGY METHOD 07/08/2025 9:04 PM EDT [facility] RDW 17.3(H) 11.5 - 14.5 % LAB HEMATOLOGY METHOD 07/08/2025 9:04 PM EDT [facility] MPV 10.1 8.8 - 12.5 fL LAB HEMATOLOGY METHOD 07/08/2025 9:04 PM EDT [facility] nRBC 0.0 <=0.0 per 100 WBCs LAB HEMATOLOGY METHOD 07/08/2025 9:04 PM EDT [facility] Differential Type Automated LAB HEMATOLOGY METHOD 07/08/2025 9:04 PM EDT [facility] Neutrophils % 91 % LAB HEMATOLOGY METHOD 07/08/2025 9:04 PM EDT [facility] Lymphocytes % 4 % LAB HEMATOLOGY METHOD 07/08/2025 9:04 PM EDT [facility] Monocytes % 4 % LAB HEMATOLOGY METHOD 07/08/2025 9:04 PM EDT [facility] Eosinophils % 0 % LAB HEMATOLOGY METHOD 07/08/2025 9:04 PM EDT [facility] Basophils % 0 % LAB HEMATOLOGY METHOD 07/08/2025 9:04 PM EDT [facility] Immature Granulocytes % 1 % LAB HEMATOLOGY METHOD 07/08/2025 9:04 PM EDT [facility] Neutrophils Absolute 23.61(H) 1.60 - 6.10 10*3/uL LAB HEMATOLOGY METHOD 07/08/2025 9:04 PM EDT [facility] Lymphocytes Absolute 1.15(L) 1.20 - 3.90 10*3/uL LAB HEMATOLOGY METHOD 07/08/2025 9:04 PM EDT [facility] Monocytes Absolute 0.98(H) 0.30 - 0.90 10*3/uL LAB HEMATOLOGY METHOD 07/08/2025 9:04 PM EDT [facility] Eosinophils Absolute 0.04 0.00 - 0.50 10*3/uL LAB HEMATOLOGY METHOD 07/08/2025 9:04 PM EDT [facility] Basophils Absolute 0.09 0.00 - 0.10 10*3/uL LAB HEMATOLOGY METHOD 07/08/2025 9:04 PM EDT [facility] Immature Granulocytes Absolute 0.25(H) 0.00 - 0.06 10*3/uL LAB HEMATOLOGY METHOD 07/08/2025 9:04 PM EDT [facility] Blood Venous blood specimen / Unknown Venipuncture / Unknown 07/08/2025 6:14 PM EDT 07/08/2025 6:23 PM EDT Narrative [facility] - 07/08/2025 9:04 PM EDT Therapeutic decision making should be based on absolute values, rather than percentages. us My Charles MD LAB BLOOD ORDERABLES Fi nal Result [facility] [address] [place] [address] * (ABNORMAL) CMP (07/08/2025 6:14 PM EDT) Glucose, Plasma 411(H) 74 - 99 mg/dL 07/08/2025 7:18 PM EDT [facility] BUN, Plasma 33(H) 7 - 21 mg/dL 07/08/2025 7:18 PM EDT [facility] Creatinine, Plasma 1.99(H) 0.60 - 1.10 mg/dL 07/08/2025 7:18 PM EDT [facility] BUN/Creatinine Ratio 17 07/08/2025 7:18 PM EDT [facility] Sodium, Plasma 131(L) 136 - 145 mmol/L 07/08/2025 7:18 PM EDT [facility] Potassium, Plasma 4.0 3.6 - 4.9 mmol/L 07/08/2025 7:18 PM EDT [facility] Chloride, Plasma 93(L) 97 - 107 mmol/L 07/08/2025 7:18 PM EDT [facility] CO2, Plasma 22 22 - 29 mmol/L 07/08/2025 7:18 PM EDT [facility] Anion Gap 16 6 - 16 mmol/L 07/08/2025 7:18 PM EDT [facility] Total Calcium, Plasma 9.3 8.9 - 10.2 mg/dL 07/08/2025 7:18 PM EDT [facility] Total Protein 6.0(L) 6.3 - 7.9 g/dL 07/08/2025 7:18 PM EDT [facility] Albumin, Plasma 2.6(L) 3.5 - 5.2 g/dL 07/08/2025 7:18 PM EDT [facility] AST, Plasma 16 10 - 35 U/L 07/08/2025 7:18 PM EDT [facility] ALT, Plasma 15 10 - 35 U/L 07/08/2025 7:18 PM EDT [facility] Alkaline Phosphatase, Plasma 165(H) 35 - 104 U/L 07/08/2025 7:18 PM EDT [facility] Total Bilirubin, Plasma 0.4 0.2 - 1.1 mg/dL 07/08/2025 7:18 PM EDT [facility] eGFRcr 30.3 mL/min/1.7 3m*2 07/08/2025 7:18 PM EDT [facility] Comment:Reported eGFRcr in m L/min/1.73m2 is based the CKD-EPI 2020 equation that does not use a race coefficient. Blood Venous blood specimen / Unknown Venipuncture / Unknown 07/08/2025 6:14 PM EDT 07/08/2025 6:23 PM EDT us My Charles MD LAB BLOOD ORDERABLES Fi nal Result [facility] [address] [place] [address] * [facility] [facility], E/M 30-74 MINUTES (07/08/2025 5:58 [...] as uncontrolled Hidradenitis Smoker Tobacco use disorder Necrotizing fasciitis (CMS/HCC) Necrotizing fasciitis documented in this encounter Admitting Diagnoses Diagnosis Necrotizing fasciitis (CMS/HCC) Necrotizing fasciitis documented in this encounter Administered Medications Inactive Administered Medications - up to 3 most recent administrations Medication Order MAR Action Action Date Dose Rate Site acetaminophen (Tylenol) tablet 1,000 mg 1,000 mg, Oral, Every 6 hours scheduled, First dose on Tue07/11/25 at 1200, Until Discontinued, Routine Given 07/19/2025 12:30 PM EDT 1,000 mg Given 07/19/2025 6:07 AM EDT 1,000 mg Given 07/19/2025 12:38 AM EDT 1,000 mg busPIRone (Buspar) tablet 15 mg 15 [...] Given 07/18/2025 1:16 PM EDT 15 mg dextrose 10 % (D10W) bolus 125 mL [...] PRN low blood sugar BG =/<50 mg/dL DULoxetine (Cymbalta) DR capsule 60 mg 60 [...] EDT 40 mg Le ft Upper Abdomen glucagon (human recombinant) injection 1 mg 1 mg, Intramuscular, Every 15 min PRN, Starting on Tue07/08/25 at 2052, Until Tue07/19/25 at 1456, Routine, low blood sugar per Hypoglycemia Prevention and Treatment protocol insulin glargine-yfgn 100 UNIT/ML injection 10 Units 10 Units, Subcutaneous, Nightly, First dose (after last modification) on Tue07/19/25 at 2100, Until Discontinued, Routine insulin lispro (Admelog) 100 units/mL injection - Correction - Standard Dose 0-5 Units, Subcutaneous, 3 times daily with meals, First dose on Tomasa 07/11/25 at 1730, Until Discontinued, Routine Given 07/18/2025 6:12 PM EDT 2 Units Right Upper Arm (Back) Given 07/17/2025 12:15 PM EDT 2 Units R ight Upper Arm (Back) Given 07/16/2025 5:39 PM EDT 1 Units Le ft Lower Abdomen insulin lispro (Admelog) injection - Correction - Nighttime Dose 0-3 Units, Subcutaneous, 2 times nightly (2100 & 0300), First dose on Tue07/11/25 at 2100, Until Discontinued, Routine ipratropium-albuterol (Duo-Neb) 0.5-2.5 mg/3 mL nebulizer solution [...] Given 07/17/2025 8:18 PM EDT 1 packet lamoTRIgine (LaMICtal XR) 24 hr tablet 100 mg 100 mg, Oral, Nightly, First dose on Tue07/11/25 at 2000, Until Discontinued, Routine Given 07/18/2025 9:23 PM E DT 100 mg Given 07/17/2025 8:18 PM EDT 100 mg Given 07/16/2025 9:08 PM EDT 100 mg methocarbamol (Robaxin) tablet 750 mg 750 [...] Given 07/16/2025 9:08 PM EDT 100 mg ondansetron ODT (Zofran-ODT) disintegrating tablet 4 [...] on Tue07/19/25 at 1115, Until Discontinued, Routine polyethylene glycol (Miralax) packet 17 g 17 g, Oral, Daily, First dose on Tue07/12/25 at 1045, Until Discontinued, Routine Given 07/12/2025 10:48 AM EDT 17 g rosuvastatin (Crestor) tablet 20 mg 20 mg, [...] 07/17/2025 12:00 AM EDT 10 mL sodium hypochlorite (Dakin's (QUARTER-Strength)) external solution As needed, Starting on Tue07/08/25 at 2258, Until Tue07/08/25 at 2327, Routine Given 07/08/2025 10:58 PM EDT 1 Application Ot her documented in this encounter Active and Recently [...] Almazan RN) 0543 (Given - Provider: Inessa Almzaan RN)1316 (Given - Provider: Josi Ann RN)1812 [...] RN)2018 (Given - Provider: Inessa Almazan RN) 850 (Given - Provider: Josi Ann RN)2114 (Given [...] on Tue07/11/25 at 2100, Until Discontinued, Routine 0301 (Not Given - Provider: Eulalia Estrada RN - Reason: Order parameters not met)2235 (Not Given - Provider: Inessa Almazan RN - Reason: Order parameters not met) 0300 (Not Given - Provider: Inessa Almazan RN - Reason: Order parameters not met)2127 (Not Given - Provider: Inessa Almazan RN - Reason: Order parameters not met) 0300 (Not Given - Provider: Inessa Almazan RN [...] RN)2114 (Given - Provider: Inessa Almazan RN) 912 [...] floor)2113 (Given - Provider: Inessa Almazan RN) 08 (Given - Provider: Junior Sabrina Santos) metoprolol [...] Comment: no wv in place due to [facility] dc) polyethylene glycol (Miralax) packet 17 [...] Provider: Josi Ann RN - Reason: Patient/family refused)211 (Given - Provider: Inessa Almazan RN) 0913 (Not Given - Provider: Kalyn Martell [...] 15 mg, Oral, Daily PRN, Starting on Tu07/16/25 at 1027, Until Tue07/19/25 at 1456, Routine, [...] Josi Ann RN)2308 (Given - Provider: Inessa Almazan, RN) 0851 (Given - Provider: Josi Ann RN) 0054 (Given - Provider: Inessa Almazan, NAHID)0715 (Given - Provider: Junior Sabrina Santos) oxyCODONE [...] documented as of this encounter Care Teams Bird Tender Relationship Specialty Start Date End Date Yenny Dhillon APRN [address] [place] [address] PCP - General 07/22/23 documented as of this encounter
--- OUTSIDE RECORDS SUMMARY | 2025-07-08 20:09 | XMS_ITS | Encounter Summary ---
Author Organization Healthcare Address [address] [place] [address] Care Team Providers Care Desk Attendant Name Role Phone Yenny Dhillon APRN Primary Care Provider [phone] Reason for Visit * Auth/Cert (Routine) Specialty Diagnoses / Procedures Referred By Bharati t Referred To Contact Diagnoses Necrotizing fasciitis (CMS/HCC) Necrotizing Fascitis Brittany Crawford MD [address] [facility] [address] [place] [address] Phone: tel: fax: [facility] Inpatient [address] [place] [address] Phone: tel: Referral ID Status Reason Start Date Expiration Date Visits Re quested Visits Authorized [id number] 1 1 Encounter Details Date Type Department Care Team (Late st Contact Info) Description 07/08/2025 8:09 PM EDT Anesthesia Event [facility] [address] [place] [address] Yadi Goel MD [address] [place] [address] Jesse Montes MD [address] [place] [address] Anesthesia Record Procedure Summary Procedure Name Responsible Anesthesiologist Anesthesia Start Time Anesthesia Stop Time IRRIGATION AND DEBRIDEMENT, WOUND (Right) Yadi Goel MD 07/08/25200807/08/25 2335 Events Date Time Event Comment 07/08/20251923 An Start The patient was reevaluated immediately before sedation and remains eligible for anesthesia plan. 2012 In Room 2013 An Start Data 2025 An Induction The patient was reevaluated immediately before moderate or deep sedation use and before anesthesia induction. 2027 An Intubation 2042 Anesthesia Ready 2100 Proc Start 2317 Proc Fin 2322 an stop data 2326 Out of Room 2333 Handoff to Receiving I compl eted my handoff to the receiving clinician during which we: 1. Identified the patient 2. Identified the responsible provider 3. Reviewed the pertinent medical history 4. Discussed the surgical course 5. Reviewed intra-op anesthesia management and issues during anesthesia 6. Set expectations for post-procedure period 7. Allowed opportunity for questions and acknowledgement of understanding. 2334 An Stop Meds Name Total fentaNYL (Sublimaze) injection 50 mcg/mL 250 mcg rocuronium (ZeMuron) injection 10 mg/mL 180 mg succinylcholine (Anectine) injection 20 mg/mL 200 mg etomidate 2 MG/ML 20 mg Lidocaine HCl 100 MG/5ML 160 mg norepinephrine 8 mg/250 mL (0.032 mg/mL) infusion 49.89 mL insulin regular in sodium ch loride 0.9 % 1 UNIT/ML infusion (Standard Insulin Protocol) 10.47 Units cefepime (Maxipime) 2 g in s odium chloride 0.9% 100 mL IVPB (vial adapter required) 2 g metroNIDAZOLE (Flagyl) IVPB 500 mg 500 m g ketamine (Ketalar) injection 10 mg/mL 50 mg phenylephrine (Bebeto-Synephrine) prefilled syringe 1 mg/10 mL 100 mcg calcium chloride 10% injection 1 g sodium chloride 0.9 % infusion 2,000 mL sodium chloride 0.9 % infusion 0 mL lactated Ringer's infusion 1,000 mL * Agents Name O2 N2O Air Sevoflurane Isoflurane Desflurane Inspired Desflurane Inspired Isoflurane Inspired Sevoflurane N2O Inspired N2O * Blood Name Total PRBC 700 mL FFP 600 mL Lines, Drains, and Airways Type Details Placement Removal Wound 07/08/25; 2108; Y; Y es; Infection; Necrotizing; Leg; Right, Upper, Inner 07/08/252108 by Antoine, Ema A, RN Peripheral IV Placement Date: 12/01; Placement Time: 0000; Catheter Size: 18 G; Orientation: Right; Location: Antecubital; Removal Date: 07/11/25; Removal Time: 08; Removal Reason: Leaking 07/08/25 0000 by Kadi Bustamante RN 07/11/25 0805 by Ayana Amato RN Peripheral IV Placement Date: 12/01; Placement Time: 1851; Catheter Size: 18 G; Orientation: Left; Location: Antecubital; Removal Date: 07/10/25; Removal Time: 2315; Removal Reason: Occluded 07/08/25 185 by Kadi Bustamante RN 07/10/252315 by Cheyanne Briceño RN Arterial Line Placement Date: 12/01; Placement Time: 2021 (created via procedure documentation); Size: 20 G; Orientation: Right; Location: Radial; Inserted by: Anesthesiologist; Securement: Taped; Patient Tolerance: Tolerated well; Removal Date: 07/09/25; Removal Time: 1200; Removal Reason: Catheter damage 07/08/252021 by Yadi Goel MD 07/09/25 1200 by Jeana Bear ETT Placement Date: 12/01; Placement Time: 2027 (created via procedure documentation); Mask Ventilation: 0; Technique: Direct laryngoscopy; Type: ETT - single; Single Lumen Tube Size: 7.5 mm; Cuffed: Yes; Laryngoscope: Davis; Blade Size: 2; Location: Oral; Grade View: Grade I; Insertion Attempts: 1; Placement Verification: Auscultation, Capnometry; Airway Comments: Atraumatic. No change to dentition. ; Placed by: [employer] PE [employer]ER; Removal Date: 07/10/25; Removal Time: 164907/08/252027 by Richard Betts CRNA 07/10/251649 by Ghanshyam Mena CRNA Urethral Catheter Placement Date: 12/01; Placement Time: 2033; Inserted by: KEYLA WHITFIELD; Type: Temperature probe; Size: 16 Fr.; Balloon Size: 10 mL; Urine Returned: Yes; Removal Date: 07/16/25; Removal Time: 1145; Removal Reason: Per order 07/08/252033 by Ema Antoine RN 07/16/25 1145 by Denia Boo RN CVC Triple Lumen Placement Date: 12/01; Placement Time: 2036 (created via procedure documentation); Hand Hygiene: Yes; Site Prep: Chlorhexidine ; Site Prep Agent Dried: Yes; Sterile Barrier Used: Yes; Size: 7 Fr; Description: I placed cvp personally ; Line Length(cm): 20; Orientation: Right; Location: Internal jugular; Placement Verification: Blood return, Ultrasound; Removal Date: 07/12/25; Removal Time: 161; Removal Reason: Per order; Removal Cath Length: 20 cm 07/08/252036 by Yadi Goel MD 07/12/25 161 by Jeana Bear NG/OG Tube Placement Date: 12/01; Placement Time: 233 (present upon admission to ICU); Type: Orogastric; Location: Center mouth; Removal Date: 07/10/25; Removal Time: 111; Removal Reason: Per order 07/08/25 233 by Cheyanne Briceño RN 07/10/25 1115 by Zara Segovia RN documented in this encounter Social History Tobacco [...] PM EDT documented as of this encounter Functional Status * Calculated C-SSRS Risk Score (Lifetime/Recent) Answer Date of Assessment Author No Risk Indicated 07/09/2025 12:00 AM EDT Cheyanne Cabrera, RN * Question Answer Date of Assessment Author 1. Wish to be (Past 1 Month) No 07/09/2025 12:00 AM EDT Cheyanne Briceño RN 2. Non-Specific Active Suicidal Thoughts (Past 1 Month) No 07/09/2025 12:00 AM EDT Cheyanne Briceño RN 6. Suicidal Behavior (Lifetime) No 07/09/2025 12:00 AM EDT Cheyanne Briceño RN documented as of this encounter Miscellaneous Notes * Anesthesia Postprocedure Evaluation - Richard Betts CRNA - 07/08/2025 11:42 PM EDT Patient: Ashley Brown Anesthesia Type: general Vitals Value Taken Time BP 122/78 07/08/25 23:34 Temp 36.5 ??C (97.7 ??F) 07/08/25 23:34 Pulse 96 07/08/25 23:41 Resp 18 07/08/25 23:41 SpO2 98 % 07/08/25 23:41 Vitals shown include unfiled device data. Anesthesia Post Evaluation Patient location during evaluation: ICU Patient participation: complete - patient cannot participate Level of consciousness: sedated Pain management: adequate (pain score 0-3) Airway patency: endotracheal device Cardiovascular status: acceptable Respiratory status: ETT and ventilator Hydration status: acceptable Nausea/Vomiting: No No notable events documented. * Anesthesia Procedure Notes - Yadi Goel MD - 07/08/2025 9:36 PM EDT Associated Order(s): Central Venous Line Central Venous Line: Date/Time: 07/08/2025 8:37 PM A central venous line was placed in the OR for the following indication(s): central venous access and CVP monitoring. Sterility preparation included the following: provider hand hygiene performed prior to central venous catheter insertion, all 5 sterile barriers used (gloves, gown, cap, mask, large sterile drape) during central venous catheter insertion, antiseptic used during central venous catheter insertion andskin prep agent completely dried prior to procedure. The patient was placed in Trendelenburg position. Right internal jugular vein was prepped. The site was prepped with Chlorhexidine. A 7 Fr (size), 20 (length), introducer triple lumen was placed. During the procedure, the following specific steps were taken: target vein identified, needle advanced into vein and blood aspirated and guidewire advanced into vein. Seldinger technique used Procedure performed using ultrasound guidance Sterile gel and probe cover used in ultrasound-guided central venous catheter insertion. Intravenous verification was obtained by ultrasound, venous blood return and manometry. Post insertion care included: all ports aspirated, all ports flushed easily, guidewire removed intact, Biopatch applied, line sutured in place and dressing applied. During the procedure the patient experienced: patient tolerated procedure well with no complications. Additional notes: I placed cvp personally Staffing Performed: Anesthesiologist Anesthesiologist: Yadi Goel MD * Anesthesia Procedure Notes - Yadi Goel MD - 07/08/2025 9:35 PM EDT Associated Order(s): Arterial Line Arterial Line: Date/Time: 07/08/2025 8:22 PM An arterial line was placed. Procedure performed using surface landmarks in the pre-op for the following indication(s): continuous blood pressure monitoring and blood sampling needed. A 20 gauge (size), 1 and 3/4 inch (length), Arrow (type) catheter was placed into the Right radial artery and secured by tape. Seldinger technique used Additional notes: Smooth and uncomplicated placement of arterial line using aseptic sterile technique. No difficulty or complications. Distal capillary refill unchanged following procedure, confirmed via pulse-ox waveform. I placed the arterial line personally. Staffing Performed: Anesthesiologist Anesthesiologist: Yadi Goel MD * Anesthesia Procedure Notes - Richard Betts CRNA - 07/08/2025 8:38 PM EDT Associated Order(s): Airway Airway Date/Time: 07/08/2025 8:28 PM Reason: elective Airway not difficult General Information and Staff Patient location during procedure: OR [employer]ER: Richard Betts CRNA Performed: [employer] Patient Condition Indications for airway management: anesthesia Patient position: ramp Final Airway Details Final airway type: endotracheal airway Successful airway: ETT Cuffed: yes Successful intubation technique: direct laryngoscopy Adjuncts used in placement: intubating stylet Endotracheal tube insertion site: oral Blade: Davis Blade size: #2 ETT size (mm): 7.5 Cormack-Lehane Classification: grade I - full view of glottis Placement verified by: chest auscultation and capnometry Measured from: lips ETT to lips (cm): 22 Additional Comments Atraumatic. No change to dentition. * Anesthesia Preprocedure Evaluation - Yadi Goel MD - 07/08/2025 7:19 PM EDT Images from the original note were not included. Anesthesiologist: (Unknown) [employer] PE TEACHER: (Unknown) Soloist Dancer: (Unknown) Patient: Ashley Brown HPI: Ashley Brown is a 50 y.o. female with body mass index is 56.12 kg/m??. who presents with Necrotizing fasciitis (CMS/HCC), now for IRRIGATION AND DEBRIDEMENT, WOUND (Right) ROS: Relevant Problems Cardio (+) HTN (hypertension), benign Endo (+) Type 2 diabetes mellitus GI (+) Morbid (severe) obesity due to excess calories (CMS/HCC) Neuro/Psych (+) History of hysterectomy Pulmonary (+) Chronic obstructive pulmonary disease, unspecified (CMS/HCC) ALLERGIES: Allergies[1] NPO STATUS: >8 hours FUNCTIONAL CAPACITY: >4 METS SOCIAL HX: Social History[2]1.5 ppd x 39 years Daily marijuana Social etoh SURGICAL HX: Surgical History[3] hysterectomy PAST MEDICAL HX: Medical History[4] MEDICATIONS: Scheduled Current Scheduled Medications[5] Outpatient Prescriptions Prior to Admission[6] Current Outpatient Medications Medication Instructions budesonide-formoterol (Symbicort) 160-4.5 MCG/ACT inhaler No dose, route, or frequency recorded. busPIRone (BUSPAR) 10 mg, Oral, 2 times daily cephalexin (Keflex) 500 MG capsule TAKE 1 CAPSULE BY MOUTH 4 TIMES DAILY cholecalciferol (Vitamin D-3) 5,000 Units tablet No dose, route, or frequency recorded. DSS 200 mg, Oral, ZZ Daily RT DULoxetine (CYMBALTA) 60 mg, Oral, Daily escitalopram (LEXAPRO) 5 mg, Oral, Daily, as directed fluticasone (Flonase) 50 MCG/ACT nasal spray 2 sprays, Nasal, 2 times daily folic acid (FOLVITE) 1 mg, Oral, ZZ Daily RT Linzess 72 MCG capsule capsule metFORMIN (Glucophage) 500 MG tablet Oral, 2 times daily mirabegron ER (MYRBETRIQ) 25 mg, Oral, Daily Misc Natural Products (Osteo Bi-Flex Adv Triple St) tablet 1 tablet, Oral, 2 times daily montelukast (SINGULAIR) 10 mg, Oral, Daily naproxen (NAPROSYN) 500 mg, Oral, 2 times daily with meals nitrofurantoin, macrocrystal-monohydrate, (Macrobid) 100 MG capsule TAKE 1 CAPSULE BY MOUTH EVERY 12 HOURS WITH FOOD Ozempic, 1 MG/DOSE, 4 MG/3ML solution pen-injector INJECT 1 MG SUBCUTANEOUSLY ONCE A WEEK ON THE SAME DAY EACH WEEK polycarbophil (EQ Fiber Therapy) 625 MG tablet No dose, route, or frequency recorded. Procto-Med HC 2.5 % rectal cream APPLY A THIN LAYER OF CREAM TO AFFECTED AREA(S) 2-4 TIMES DAILY rosuvastatin (CRESTOR) 20 mg, Oral, Daily valsartan-hydroCHLOROthiazide (Diovan-HCT) 320-12.5 MG tablet 1 tablet, Oral, ZZ Daily RT Vitamin E 180 MG (400 UNIT) capsule No dose, route, or frequency recorded. PRNs Current PRN Medications[7] OBJECTIVE DATA: LABS ABO/Rh Date Value Ref Range Status 07/08/2025 O Positive Final Lab Results Component Value Date WBC 26.15 (H) 07/08/2025 HGB 10.9 (L) 07/08/2025 HCT 33.6 (L) 07/08/2025 PLT 329 07/08/2025 Lab Results Component Value Date GLUCOSE 411 (H) 07/08/2025 CALCIUM 9.3 07/08/2025 NA 131 (L) 07/08/2025 K 4.0 07/08/2025 CO2 22 07/08/2025 CL 93 (L) 07/08/2025 BUN 33 (H) 07/08/2025 CREATININE 1.99 (H) 07/08/2025 Labs in last 18 hours CBC WBC 26.15 (H) Hb 10.9 (L) Plt 329 Hct 33.6 (L) ANC ?? INR 1.2 (H), PTT ??, Anti-Xa ?? BMP Na 131 (L) Cl 93 (L) BUN 33 (H) Glu 411 (H) K 4.0 Co2 22 Cr 1.99 (H) Ca 9.3 iCa ?? Mg ??, Phos ?? Lactate ?? LFT AST 16 AlkPhos 165 (H) T Prot 6.0 (L) ALK 15 Bili 0.4 Alb ?? D.Bili ?? LAB TRENDS HGB (g/dL) Date Value 07/08/2025 10.9 (L) HCT (%) Date Value 07/08/2025 33.6 (L) Platelet Count (10*3/uL) Date Value 07/08/2025 329 INR (no units) Date Value 07/08/2025 1.2 (H) Total Calcium, Plasma (mg/dL) Date Value 07/08/2025 9.3 Sodium, Plasma (mmol/L) Date Value 07/08/2025 131 (L) 06/09/2023 136 06/09/2023 137 06/08/2023 135 (L) Potassium, Plasma (mmol/L) Date Value 07/08/2025 4.0 06/09/2023 4.4 06/09/2023 3.9 06/08/2023 5.0 Chloride, Plasma (mmol/L) Date Value 07/08/2025 93 (L) 06/09/2023 98 06/09/2023 98 06/08/2023 93 (L) CO2, Plasma (mmol/L) Date Value 07/08/2025 22 Creatinine, Plasma (mg/dL) Date Value 07/08/2025 1.99 (H) Glucose, Plasma (mg/dL) Date Value 07/08/2025 411 (H) 06/09/2023 132 (H) 06/09/2023 116 (H) 06/08/2023 126 (H) EKG No results found for this or any previous visit (from the past 4464 hours). ECHO No echocardiogram results found for the past 12 months PFTs No results found for: OIX7ZBH , EKQ5BDGG , NZQ8SOL , FVCPRED IMAGING: No results found. PRIOR ANESTHETICS: No reported prior anesthetic complications. PHYSICAL EXAM: Body mass index is 56.12 kg/m??. Vitals: 07/08/25 1805 07/08/25 1820 07/08/25 1850 07/08/25 1910 BP: (!) 107/48 (!) 77/61 89/64 Pulse: 99 96 Resp: 22 22 Temp: TempSrc: SpO2: 93% 93% Weight: 177 kg (391 lb 1.5 oz) Temp: [37 ??C (98.6 ??F)] 37 ??C (98.6 ??F) Heart Rate: [96-100] 96 Resp: [22-23] 22 BP: (77-107)/(48-64) 89/64 Physical Exam Airway Mallampati: I Mouth opening: normal TM distance: >3 FB Neck ROM: full Cardiovascular Rhythm: regular Rate: tachycardia Dental (+) edentulous Pulmonary (+) decreased breath sounds Neurological Oriented: normal to place, normal to person and normal to time Skin Musculoskeletal Extremities Anesthesia Plan ASA 3 - emergent Plan was reviewed with: [employer]ER Anesthesia technique(s) discussed with the patient/family: general Anesthesia plan agreed upon was: general Anesthetic plan and risks discussed with patient. Use of blood products discussed with patient who. ROS Anesthesia: history of previous anesthesia and obstructive sleep apnea. Does not have a history of anesthetic complications. Cardiovascular: hyperlipidemia. hypertension: Exercise tolerance is walks less than 50ft. Patient has chest pain. Cardio additional comments: States she had an echo 3 months ago and told it was ok . Respiratory: asthma: well controlled. HEENT: missing teeth. HEENT additional comments: Edentulous . 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 Gastrointestinal: morbid obesity. Genitourinary: Negative ROS. Hematological/Lymphatic: negative hematology/oncology ROS. Endocrine/Metabolic: diabetes mellitus type 2.poorly controlled. [1] Allergies Allergen Reactions Alprazolam Other - please document in the comment field Bupropion Anaphylaxis Aspirin Hives and Rash Doxycycline Hives and Rash Penicillins Hives and Rash Diazepam Other - please document in the comment field Makes her mean [2] Social History Tobacco Use Smoking status: Every Day Current packs/day: 1.00 Types: Cigarettes Smokeless tobacco: Never Vaping Use Vaping status: Never Used Substance Use Topics Alcohol use: Not Currently Drug use: Yes Types: Marijuana [3] Past Surgical History: Procedure Laterality Date CARPAL TUNNEL RELEASE 2 carpal tunnel surgeries - Aug CHOLECYSTECTOMY 1994 HAND SURGERY Left 2022 carpal tunnel HYSTERECTOMY 2005 TONSILECTOMY, ADENOIDECTOMY, BILATERAL MYRINGOTOMY AND TUBES 1991 [4] Past Medical History: Diagnosis Date Anxiety Asthma Carpal tunnel syndrome Depression Diabetes ([facility]) H/O absence seizures Hidradenitis High cholesterol Hypertension Sleep apnea Smoker [5] cefepime, 2 g, Intravenous, q8h linezolid, 600 mg, Intravenous, q12h metroNIDAZOLE, 500 mg, Intravenous, q8h [6] (Not in a hospital admission) [7] documented in this encounter Plan of Treatment Upcoming Encounters Date Type Department Care Team (Late st Contact Info) Description 08/20/2025 9:00 AM EDT Office Visit Medical Office Building Urology [address], [address] [place] [id number] Marj Matamoros, SODA DISPENSER [address] [place] [address] 08/20/2025 10:30 AM EDT Office Visit [facility] General Surgery [address] [place] [address] Lilliana Morfin [employer] DISPENSER [address] [place] [id number] documented as of this encounter Procedures Procedure Name Priority Date/Time Associated Diagnosis Comments ANESTHESIA ULTRASOUND GUIDED Routine 07/08/2025 8:37 PM EDT PB ANESTHESIA NON-TIMED PROCEDURE PLACEHOLDER Routine 07/08/2025 8:37 PM EDT FL AN CENTRAL LINE TRIPLE LUMEN Routine 07/08/2025 8:37 PM EDT PB ANESTHESIA PLACEHOLDER Routine 07/08/2025 8:28 PM EDT FL AN ELECTIVE ENDOTRACHEAL AIRWAY Routine 07/08/2025 8:28 PM EDT ANESTHESIA ARTERIAL LINE PLACEMENT Routine 07/08/2025 8:22 PM EDT documented in this encounter Results * FL AN CENTRAL LINE TRIPLE LUMEN, PB ANESTHESIA NON-TIMED PROCEDURE PLACEHOLDER, ANESTHESIA ULTRASOUND GUIDED (07/08/2025 8:37 PM EDT) Narrative Yadi Goel MD - 07/08/2025 8:37 PM EDT Yadi Goel MD 07/08/2025 9:37 PM Central Venous Line: Date/Time: 07/08/2025 8:37 PM A central venous line was placed in the OR for the following indication(s): central venous access and CVP monitoring. Sterility preparation included the following: provider hand hygiene performed prior to central venous catheter insertion, all 5 sterile barriers used (gloves, gown, cap, mask, large sterile drape) during central venous catheter insertion, antiseptic used during central venous catheter insertion and skin prep agent completely dried prior to procedure. The patient was placed in Trendelenburg position. Right internal jugular vein was prepped. The site was prepped with Chlorhexidine. A 7 Fr (size), 20 (length), introducer triple lumen was placed. During the procedure, the following specific steps were taken: target vein identified, needle advanced into vein and blood aspirated and guidewire advanced into vein. Seldinger technique used Procedure performed using ultrasound guidance Sterile gel and probe cover used in ultrasound-guided central venous catheter insertion. Intravenous verification was obtained by ultrasound, venous blood return and manometry. Post insertion care included: all ports aspirated, all ports flushed easily, guidewire removed intact, Biopatch applied, line sutured in place and dressing applied. During the procedure the patient experienced: patient tolerated procedure well with no complications. Additional notes: I placed cvp personally Staffing Performed: Anesthesiologist Anesthesiologist: Yadi Goel MD Yadi Goel MD ANESTHESIA ORDERABLES Final R esult * FL AN ELECTIVE ENDOTRACHEAL AIRWAY, PB ANESTHESIA PLACEHOLDER (07/08/2025 8:28 PM EDT) Richard Malin CRNA - 07/08/2025 8:28 PM EDT Richard Betts CRNA 07/08/2025 8:39 PM Airway Date/Time: 07/08/2025 8:28 PM Reason: elective Airway not difficult General Information and Staff Patient location during procedure: OR [employer] TEACHER: Richard Betts CRNA Performed: [employer] TE[employer] Patient Condition Indications for airway management: anesthesia Patient position: ramp Final Airway Details Final airway type: endotracheal airway Successful airway: ETT Cuffed: yes Successful intubation technique: direct laryngoscopy Adjuncts used in placement: intubating stylet Endotracheal tube insertion site: oral Blade: Davis Blade size: #2 ETT size (mm): 7.5 Cormack-Lehane Classification: grade I - full view of glottis Placement verified by: chest auscultation and capnometry Measured from: lips ETT to lips (cm): 22 Additional Comments Atraumatic. No change to dentition. Result [facility] Yadi Goel MD ANESTHESIA ORDERABLES Final R esult * PB ANESTHESIA NON-TIMED PROCEDURE PLACEHOLDER (07/08/2025 8:22 PM EDT) Yadi Hills MD - 07/08/2025 8:22 PM EDT Yadi Goel MD 07/08/2025 9:36 PM Arterial Line: Date/Time: 07/08/2025 8:22 PM An arterial line was placed. Procedure performed using surface landmarks in the pre-op for the following indication(s): continuous blood pressure monitoring and blood sampling needed. A 20 gauge (size), 1 and 3/4 inch (length), Arrow (type) catheter was placed into the Right radial artery and secured by tape. Seldinger technique used Additional notes: Smooth and uncomplicated placement of arterial line using aseptic sterile technique. No difficulty or complications. Distal capillary refill unchanged following procedure, confirmed via pulse-ox waveform. I placed the arterial line personally. Staffing Performed: Anesthesiologist Anesthesiologist: Yadi Goel MD Yadi Goel MD ANESTHESIA ORDERABLES Final R esult documented in this encounter Visit Diagnoses Not on filedocumented in this encounter Administered Medications Inactive Administered Medications - up to 3 most recent administrations Medication Order MAR Action Action Date Dose Rate Site calcium chloride 10 % injection Intravenous, As needed, Starting on Tue07/08/25 at 2222, Until Tue07/08/25 at 2342, Routine, Anesthesia Intraprocedure Given 07/08/2025 10:56 PM EDT 0.5 g Given 07/08/2025 10:22 PM EDT 0.5 g cefepime (Maxipime) 2 g in sodium chloride 0.9% 100 mL IVPB (vial adapter required) 2 g, Intravenous, Every 8 hours, First dose on Tue07/08/25 at 2330, Until Discontinued, Routine New Bag 07/12/2025 8:27 AM EDT 2 g 36. 7 mL/hr New Bag 07/12/2025 12:23 AM EDT 2 g 36.7 mL/hr New Bag 07/11/2025 5:25 PM EDT 2 g 36.7 mL/hr etomidate (Amidate) injection Intravenous, As needed, Starting on Tue07/08/25 at 2026, Until Tue07/08/25 at 2342, Routine, Anesthesia Intraprocedure Given 07/08/2025 8:26 PM EDT 20 mg fentaNYL (Sublimaze) injection Intravenous, As needed, Starting on Tue07/08/25 at 2026, Until Tue07/08/25 at 2342, Routine, Anesthesia Intraprocedure Given 07/08/2025 9:09 PM EDT 100 mcg Given 07/08/2025 8:26 PM EDT 150 mcg insulin regular in sodium chloride 0.9 % 1 UNIT/ML infusion (Standard Insulin Protocol) 0.5-30 Units/hr (0.5-30 mL/hr), Intravenous, Titrated, Starting on Tue07/08/25 at 2145, Until Tomasa 07/11/25 at 1820, Routine Rate/Dose Verify 07/11/2025 6:00 PM EDT 0.64 Units/hr 0.64 mL/hr Rate/Dose Verify 07/11/2025 4:16 PM EDT 0.64 Units/hr 0.64 mL/hr Continued from OR 07/11/2025 4:00 PM EDT 0.64 Units/hr 0.6 4 mL/hr ketamine (Ketalar) injection Intravenous, As needed, Starting on Tue07/08/25 at 2127, Until Tue07/08/25 at 2342, Routine, Anesthesia Intraprocedure Given 07/08/2025 10:04 PM EDT 30 mg Given 07/08/2025 9:27 PM EDT 20 mg lactated Ringer's infusion Intravenous, Continuous PRN, Starting on Tue07/08/25 at 2214, Until Tue07/08/25 at 2342, Routine New Bag 07/08/2025 10:14 PM EDT Lidocaine HCl prefilled syringe Buccal, As needed, Starting on Tue07/08/25 at 2026, Anesthesia Intraprocedure Given 07/08/2025 8:26 PM EDT 160 mg metroNIDAZOLE (Flagyl) IVPB 500 mg 500 mg, Intravenous, Every 8 hours, First dose on Tue07/08/25 at 2300, Until Discontinued, Routine New Bag 07/09/2025 12:55 AM EDT 500 mg 10 0 mL/hr New Bag 07/08/2025 9:10 PM EDT 500 mg Continued from OR 07/08/2025 9:05 PM EDT 100 mL /hr norepinephrine 8 mg/250 mL (0.032 mg/mL) infusion 0.02-0.4 mcg/kg/min 177 kg (6.6375-132.75 mL/hr, rounded to 6.64-132.75 mL/hr), 0.032 mg/mL, Intravenous, Titrated, Starting on Tue07/08/25 at 1815, Until Tue07/10/25 at 0803, STAT Rate/Dose Change 07/10/2025 8:00 AM EDT 0.1 mcg/kg/min 33.2 mL/hr Rate/Dose Change 07/10/2025 7:16 AM EDT 0.11 mcg/kg/min 36 .5 mL/hr Rate/Dose Change 07/10/2025 7:03 AM EDT 0.12 mcg/kg/min 39 .8 mL/hr phenylephrine in NS (Bebeto-Synephrine) 100 mcg/mL prefilled syringe Intravenous, As needed, Starting on Tue07/08/25 at 2133, Until Tue07/08/25 at 2342, Routine, Anesthesia Intraprocedure Given 07/08/2025 9:33 PM EDT 100 mcg rocuronium (ZeMuron) injection Intravenous, As needed, Starting on Tue07/08/25 at 6, Until Tue07/08/25 at 2342, Routine, Anesthesia Intraprocedure Given 07/08/2025 10:47 PM EDT 30 mg Given 07/08/2025 9:02 PM EDT 50 mg Given 07/08/2025 8:30 PM EDT 95 mg sodium chloride 0.9 % infusion Intravenous, Continuous PRN, Starting on Tue07/08/25 at 2026, Until Tue07/08/25 at 2342, Routine New Bag 07/08/2025 9:21 PM EDT New Bag 07/08/2025 8:26 PM EDT sodium chloride 0.9 % infusion Intravenous, Continuous PRN, Starting on Tue07/08/25 at 2013, Until Tue07/08/25 at 2342, Routine New Bag 07/08/2025 8:13 PM EDT 100 mL/hr succinylcholine (Anectine) injection Intravenous, As needed, Starting on Tue07/08/25 at 6, Until Tue07/08/25 at 2342, Routine, Anesthesia Intraprocedure Given 07/08/2025 8:26 PM EDT 200 mg Transfuse fresh frozen plasma Routine New Bag 07/08/2025 9:41 PM EDT Transfuse fresh frozen plasma Routine New Bag 07/08/2025 10:29 PM EDT Transfuse RBC Routine New Bag 07/08/2025 9:41 PM EDT Transfuse RBC Routine New Bag 07/08/2025 10:29 PM EDT documented in this encounter Additional Health Concerns Assessment Noted Time PHQ-9 Depression Total Score: 16 08/31/ 023 9:36 AM EDT A fall risk assessment has been complete d for the patient 08/31/2023 9:38 AM EDT A Body Mass Index follow-up plan has been documented for the patient 07/19/2025 10:51 AM EDT documented as of this encounter Care Teams Desk Attendant Relationship Specialty Start Date End Date Yenny Dhillon APRN [address] [place] [address] PCP - General 07/22/23 documented as of this encounter
--- OUTSIDE RECORDS SUMMARY | 2025-07-10 11:35 | XMS_ITS | Encounter Summary ---
Author Organization Healthcare Address [address] [place] [address] Care Team Providers Care Freight Weigher Name Role Phone Alejo Yenny Lit CASTRO Primary Care Provider [phone] Reason for Visit * Reason Comments Wound Check * Auth/Cert (Routine) Specialty Diagnoses / Procedures Referred By Bharati wiggins Referred To Contact Diagnoses Necrotizing fasciitis ([facility]/HCC) Necrotizing Fascitis Luanne Crawford MD [address] [address] Phone: tel: fax: [facility] Inpatient [address] [place] [address] Phone: tel: Referral ID Status Reason Start Date Expiration Date Visits Re quested Visits Authorized [id number] 1 1 Encounter Details Date Type Department Care Team (Late st Contact Info) Description 07/10/2025 11:35 AM EDT - 07/10/2025 1:45 PM EDT Surgery [facility] OPERATING ROOM [address] [place] [address] Dorcas Hennessy MD [address] [address] DEBRIDEMENT, WOUND groin Surgery Details [...] dressing in place, sutures removed on rounds. [facility] can re- apply negative pressurewound therapy: [...] please call our General Surgery Clinic at [phone]. If there are questions or concerns after discharge from the hospital, call Radha Ugalde, Nurse Coordinator between 7am-3pm at [phone]. If it is after hours, weekends, and holidays please call [phone] and ask for the resident regional production manager for Emergency General Surgery. Medication requests should be made between the hours of 9:00 AM to 3:00 PM Tuesday thru Tuesday. Please note that based upon recent changes to [place] law related to prescribing opioid pain medications, [...] Outcome: Met Intervention: Promote Activity and Functional [place] Flowsheets Taken 07/18/20252319 by Inessa Almazan, RN [...] Flowsheets Taken 07/19/2025 0223 by Inessa Almazan, research and development scientist Interventions: medication (see MAR) Taken 07/18/2025 [address] [...] Note Cristina Brown 50 y.o. female CSN: [id number] Admission: 07/08/2025 5:58 PM Primary Problem: Necrotizing fasciitis (CMS/HCC) Primary Structural Steel Detailer: Primary Caregiver: Self Assistance Available at Discharge: [...] Community Agency(s): Patient's Choice of Community Agency(s): [facility] Patient/Family Anticipated Services at Transition: Patient/Family Anticipated Services at Transition: rehabilitation services DME/Equipment Needed after Discharge: Equipment Currently Used at Home: none Equipment Needed After Discharge: walker, rollator Readmission Within the Last 30 Days: Readmission Within the Last 30 Days: unable to assess Medicare Documentation: N/A Follow-up: Keaton Patel MD [address] [facility] [address] [place] [address] [facility] ([facility]) [address] [facility] [id number] Go on 07/19/2025 Discharge Transportation: Transportation Anticipated: [...] arranged for this date at 1400 from [facility]. Annie Littlejohn * Gauri LoueiJANETH - Raj Cardona RN - 07/19/2025 9:44 AM EDT Images from the original note were not included. 1087 Oxycodone Oral Tablet, Immediate Release Brand Names: Oxaydo, Roxicodone What is this medicine? Oxycodone (cl-v-ZOE-done) is an opioid pain reliever. It is used to treat moderate to severe pain. What should I tell my health care provider before I take this medicine? They need to know if you have any of these conditions: ? [place]'s disease ? Brain tumor or head injury [...] a special medication guide each time you roller picker this medicine. ? Overdosage: Taking too [...] should report to your doctor or health acute care assistant as soon as possible: ? allergic reactions [...] attention (report to your doctor or health acute care assistant if they continue or are bothersome): ? constipation ? dry mouth ? itching ? nausea, vomiting ? upset stomach This list may not describe all possible side effects. Call your doctor for medical advice about side effects. You may report side effects to FDA at 4-140-UAJ-9596. Where should I keep my medicine? This [...] location. To find a disposal location, visit [facility]/[place]. If you cannot take unused medicine to [...] from the original note were not included. [id number] Naloxone Nasal [place] WHY is this medicine prescribed? Prescription and [...] pharmacist for the instructions or visit the dress shoe inspector's website to get the instructions. You should [...] or doctor for a copy of the dress shoe inspector's information for the patient. Are there OTHER [...] and out of their sight and reach. https://www.upandReffpedia.org Dispose of unneeded medications in a way [...] of all of the prescription and nonprescription (kiur-woj-ptzknwn) medicines, vitamins, minerals, and dietary supplements you [...] or pharmacist about specific clinical use. The [place] [employer]System [employer]. represents that the information provided hereunder was formulated with a reasonable standard of care, and in conformity with professional standards in the field. The [place] [employer]System [employer] Inc. makes no representations or warranties, express or implied, including, but not limited to, any implied warranty of merchantability and/or fitness for a particular purpose, with respect to such information and specifically disclaims all such warranties. Users are advised that decisions regarding drug therapy are complex medical decisions requiring the independent, informed decision of an appropriate health acute care assistant, and the information is provided for informational purposes only. The entire monograph for a drug should be reviewed for a thorough understanding of the drug's actions, uses and side effects. The [place] [employer]System [employer] does not endorse or recommend the use of any drug.The information is not a substitute for medical care. AHFS?? Patient Medication Information?. ?? Copyright, 2023. The [place] [employer] of Health-System Pharmacists??, [address], [address], [place], [place]. All Rights Reserved. Duplication for commercial use must be authorized by [facility]. Selected Revisions: May 26, 2024. AHFS?? Patient Medication Information?. ?? Copyright, 2024 * [facility] - Raj Cardona RN - 07/19/2025 [...] controlled substances: ? Drug Enforcement Agency (HARIS): http://www.deadiversion.Krimmeni TechnologiesoUSEREADY.gov/drug_disposal/takeback/index.htm ? National Association of Drug Diversion Investigators (NADDI): http://rxdrugdropbox.org/ ? [place] Office of Drug Control Policy: http://odcp.[place].gov/Prescription+Drug+Drop+Box+Sites.htm Are there concerns about or ? ? [...] that tracks prescriptions of controlled substances in [place]. The DANYELLE report tells your doctor if [...] or your doctor may then call the [place] Drug Enforcement and Professional Practices Branch at .This will start an investigation of the error. * Jodycynthia [facility] - Raj Cardona RN - 07/19/2025 9:44 AM EDT Images from the original note were not included. 19884 Insulin: How to Use and Where to [...] ?needles? or ?sharps.? ? Call your local [employer] company to ask about removing the sharps container. You can also check withthe Coalition for Safe Community Needle Disposal at www.safeneedledisposal.org or 074-099-1248. Storing your insulin ? Keep unopened insulin [...] cold. Last Reviewed Date: 2023 00:00:00 ?? 0228-9361 The [employer]. All rights reserved. This information is not intended as a substitute for professional medical care. Always follow your healthcare professional's instructions. * Gauri Rico - Raj Cardona RN - 07/19/2025 9:43 AM EDT Images from the original note were not included. [id number] Diet: Diabetes Food is an important tool [...] of Nutrition and Dietetics at www.eatright.org o [place] Diabetes Association at www.diabetes.org or 296-352-7028 o Association of Diabetes Care and Education Specialists at www.diabeteseducator.org/ Last Reviewed Date: 2024 00:00:00 ?? 0080-3860 The [employer]. All rights reserved. This information is not intended as a substitute for professional medical care. Always follow your healthcare professional's instructions. * Gauri [facility] - Raj Cardona RN - 07/19/2025 9:43 AM EDT Images from the original note were not included. 78063 Diabetes: Understanding Carbohydrates, Fats, and Protein Food [...] foods. Last Reviewed Date: 2024 00:00:00 ?? 3673-4303 The [employer]. All rights reserved. This information is not intended as a substitute for professional medical care. Always follow your healthcare professional's instructions. * [facility] - Raj Cardona RN - 07/19/2025 9:43 AM EDT Images from the original note were not included. 99098 Discharge Instructions: Packing a Wound You have [...] chills. Last Reviewed Date: 2025 00:00:00 ?? 7689-9523 The [employer]. All rights reserved. This information is not intended as a substitute for professional medical care. Always follow your healthcare professional's instructions. * Gauri LouieJANETH - Raj Cardona RN - 07/19/2025 9:43 AM EDT Images from the original note were not included. 92838 Negative Pressure Wound Therapy Negative pressure wound [...] device. Last Reviewed Date: 2024 00:00:00 ?? 0332-5249 The [employer]. All rights reserved. This information is not intended as a substitute for professional medical care. Always follow your healthcare professional's instructions. * Gauri LouieJANETH - Raj Cardona RN - 07/19/2025 9:43 AM EDT Images from the original note were not included. 02328 Discharge Instructions: Changing Your Dressing You are [...] doctor. Last Reviewed Date: 2025 00:00:00 ?? 4581-5687 The [employer]. All rights reserved. This information is not intended as a substitute for professional medical care. Always follow your healthcare professional's instructions. * Gauri [facility] - Raj Cardona RN - 07/19/2025 9:42 AM EDT Images from the original note were not included. [id number] Abscess (Incision and Drainage) An abscess is [...] treatment. Last Reviewed Date: 2024 00:00:00 ?? 3194-7489 The [employer]. All rights reserved. This information is not intended as a substitute for professional medical care. Always follow your healthcare professional's instructions. * Gauri Rico - Raj Cardona RN - 07/19/2025 9:42 AM EDT Images from the original note were not included. 31287 Preventing a Surgical Site Infection A risk [...] of infection. ? Controlled body temperature. A kjuil-udem-icjlgd temperature during or after surgery prevents oxygen [...] and water or with an alcohol-based hand job site supervisor before and after caring for you. Don?t [...] away. Last Reviewed Date: 2024 00:00:00 ?? 6948-6964 The [employer]. All rights reserved. This information is not [...] to the condition itself. It comes from Azerbaijani and Latin words for a gnawing sore [...] questions. Last Reviewed Date: 2023 00:00:00 ?? 8381-5290 The [employer]. All rights reserved. This information is not [...] MD PCP name and Address: Yenny Dhillon, HOOP EXPANDER [address] [facility] [address] [facility] Referring provider name and address: Keaton Patel MD [address] [place] [facility] [address] [facility] Chief Concern, Brief History of Present Illness, and Hospital Course Cristina Brown is a 50 y.o. female with PMH of DM, hidradenitis supparativa, current smoker (1.5ppd), hx of absent seizures, UTI, depression, anxiety, asthma, HLD, celiac disease, presenting to [facility] on 07/08/2025 as transfer with concern [...] stay, and so will be discharged to [facility]. Surgeries and Procedures Procedures performed in [...] Your Medications These medications were sent to [facility] - [place], [place] - [address] [facility] [address] [facility] [address] naloxone 4 mg/0.1 mL nasal spray Information [...] - Improving, continue to monitor Septic shock ([facility]) Overview Addendum 07/12/2025 1:55 PM by Gabriel Segovia - Septic shock secondary to necrotizing fascitis. - Required Levophed and Vasopressin for circulatory support. - Currently off pressor support, continue to monitor pressures. HLD (hyperlipidemia) (Chronic) Overview Addendum 07/11/2025 8:53 AM by Gabriel eSgovia - Continuing home Crestor JOSEP (obstructive sleep [...] dressing in place, sutures removed on rounds. [facility] can re- apply negative pressurewound therapy: [...] please call our General Surgery Clinic at [phone]. If there are questions or concerns after discharge from the hospital, call Radha Ugalde, Nurse Coordinator between 7am-3pm at [phone]. If it is after hours, weekends, and holidays please call [phone] and ask for the resident regional production manager for Emergency General Surgery. Medication requests should be made between the hours of 9:00 AM to 3:00 PM Tuesday thru Tuesday. Please note that based upon recent changes to [place] law related to prescribing opioid pain medications, [...] normal. Judgment: Judgment normal. Discharge Disposition/Condition Disposition: [facility] Condition: Stable (s/sx potential problems absent [...] (H) 07/17/2025 I reviewed bg [facility] glucose timeline 07/19/25 ASSESSMENT Hospital Course: Cristina Brown is a 50 y.o. female with hx of type 2 DM, morbid obesity, hidradenitis supparativa, current smoker (1.5 ppd), hx of absent seizures, UTI, depression, anxiety, asthma, HLD, celiac disease who initially came to [facility] on 07/08/2025 as transfer with concern [...] to establish care with endocrine provider in [place], [place]. --> Provided patient with address and number of clinic. [[facility] Endocrinology Clinic in the [facility] Physician Building]. -Tentative discharge recommendations: Likely resume [...] team via secure chat orpage us at [phone] during 7a-7p, Tuesday-Tuesday. For after hours please [...] and newly diagnosed JOSEP who presented to [facility] with leukocytosis and exam findings consistent [...] the brett pad. After discussion with chief regional production manager, decision was made to remove the [place] and place a tuw-fcs-zydtimvl with Kerlix, Polymem, ABD pads, and skin [...] Note Cristina Brown 50 y.o. female CSN: [id number] Admission: 07/08/2025 5:58 PM Primary Problem: Necrotizing fasciitis (CMS/HCC) Anticipated Discharge Date: 07/19/25 Has Discharge Plans Changed? Yes [facility] Acute Rehab Medicare Second Notice: Housing Circumstances: Low Income ( 101-300% Federal Poverty Guideline) Housing Circumstances Action Taken: Medically Ready for Discharge: Anticipated Tomorrow Additional Comments Per the MD pt is medically ready to d/c after she can tolerate her wv being changed without IV painmedication. SW talked with the pt and she is agreeable to go to [facility] however she still has a lot [...] the MD team. Pt will transfer to [facility] via shuttle on 07/19 if all [...] HLD, celiac disease who initially came to [facility] on 07/08/2025 as transfer with concern [...] to establish care with endocrine provider in [place], [place]. --> Provided patient with address and number of clinic. [[facility] Endocrinology Clinic in the [facility] Physician Building]. -Tentative discharge recommendations: Likely resume [...] OR Adult Inpatient Diabetes team via secure [employer] or[employer]Dandong [employer]s us at [phone] during -7p, Tuesday-Tuesday. For after hours please [...] 7:05 AM EDT Associated Problem(s): Necrotizing fasciitis ([facility]) - 07/09: debridement of necrotizing fasciitis [...] Morbid (severe) obesity due to excess calories ([facility]) Complicates all aspect of care * [...] 7:05 AM EDT Associated Problem(s): Postoperative pain [facility] * Progress Notes - Jason Andre [...] montalvo catheter. Remove when able. Absence seizure ([facility]/HCC) Present on Admission: Yes - On Lamictal 50mg BID at home. Restarted 07/09. Acute respiratory failure Present on Admission: Yes CPAP at night for suspected sleep apnea Lasix PRN for pulmonary edema and to help with breathing Improving, will continue to monitor Septic shock ([facility]/HCC) Present on Admission: Yes Septic shock secondary [...] Ongoing, Progressing Intervention: Promote Activity and Functional [place] Flowsheets (Taken 07/18/2025204) Activity Assistance Provided: assistance, [...] Ongoing, Progressing Intervention: Promote Activity and Functional [place] Flowsheets Taken 07/16/2025 0635 by Yessenia Ramirez [...] HLD, celiac disease who initially came to [facility] on 07/08/2025 as transfer with concern [...] to establish care with endocrine provider in [place], [place]. --> Provided patient with address and number of clinic. [[facility] Endocrinology Clinic in the [facility] Physician Building]. -Tentative discharge recommendations: Likely resume [...] via secure chat or page us at [phone] during 7a-7p, Tuesday-Tuesday. For after hours please [...] Baker RD * Progress Notes - Sophia Salzaar RN - 07/17/2025 4:36 PM EDT Images [...] care close to her sisters house in [place]. CM notified. * Assessment & Plan Note [...] Morbid (severe) obesity due to excess calories ([facility]) Complicates all aspect of care * [...] Edited by: Inderjit Montes PA at 07/17/2025 0606 Relevant review of systems was obtained as [...] admission Level of Mobility Ambulatory- community Mobility [place] Independent gait without device History of Falls [...] motivated and engaged throughout Visitors Present None Director Of Revenue Cycle Management (if applicable) OBJECTIVE PAIN Rates pain at [...] needed areas of treatment space Level of [place] Interventions: Feeding Independent Edge of bed Patient [...] Level of Assistance: Moderate assistance Adaptive Equipment: Structural Test Engineer, Sock aide Training and demonstration provided for use and functionality of sock aid, leg ferry captain strap and athletics director tool to support independence with LB dressing, [...] and prioritizing during ADL performance. Access Code: [email or web address] URL: [email or web address] Putting On Socks with a Sock Aid Putting On and Taking Off Pants Using a Structural Test Engineer Using a Leg Pain Management Nurse Adaptive Equipment for Bathing & Showering Understanding Energy Conservation BED MOBILITY Level of [place] Physical/Non- physical Assist Adaptive Equipment Utilized Supine to Sit Modified [place] Bed rails TRANSFERS Level of [place] Physical/Non- physical Assist Adaptive Equipment Utilized Sit [...] admission Level of Mobility Ambulatory- community Mobility [place] Independent gait without device History of Falls [...] unaware when pt may be discharged from [facility]. Director Of Revenue Cycle Management (if applicable) Not Applicable OBJECTIVE & INTERVENTIONS [...] pt's true mobility BED MOBILITY Level of [place] Physical/Non- physical Assist Adaptive Equipment Utilized Rolling/ Turning Scooting/ Bridging Supine to Sit Modified [place] Bed rails Sit to Supine Interventions TRANSFERS Level of [place] Physical/Non- physical Assist Adaptive Equipment Utilized Sit to Stand Stand-by assist Supervision Rollator Stand to sit Stand-by assist Supervision Rollator Bed to Chair Toilet Transfer Shower Transfer Interventions BALANCE Postural Appearance Posture: Forward head, Rounded shoulders Level of [place] Balance Support Interventions Static Sit Standby assist Feet supported Dynamic Sit Contact guard Feet supported Dynamic Sitting-Balance: Lateral weight shifts, Anterior/Posterior weight shifts Static Stand Contact guard Right upper extremity support, Left upper extremity support Standing in room prior to ambulation Dynamic Stand Contact guard Right upper extremity support, Left upper extremity support 3 bouts of approx 1 min each AMBULATION Level of [place] Distance Adaptive Equipment Utilized Ambulation Contact guard [...] Ongoing, Progressing Intervention: Promote Activity and Functional [place] Flowsheets Taken 07/16/2025 0635 by Yessenia Ramirez [...] promoted Taken 07/14/2025 1800 by Josi Ann, bottom filler/Support System Care: support provided Goal: Optimal Functional [...] Ongoing, Progressing Intervention: Promote Activity and Functional [place] Flowsheets Taken 07/16/2025 0635 by Yessenia Ramirez [...] Ongoing, Progressing Intervention: Promote Activity and Functional [place] Flowsheets (Taken 07/16/2025 012 by Eulalia Estrada [...] promoted Taken 07/16/2025 0129 by Eulalia Estrada, research and development scientist Interventions: (care plan) pillow support provided position [...] 3:01 PM EDT SW received call from Farm Implement Mechanic offering assistance for d/c planning. Her Callback #[phone] * Progress Notes - Sherrill Villa APRN [...] (H) 07/14/2025 I reviewed bg [facility] glucose timeline 07/16/25 ASSESSMENT Hospital Course: Cristina Brown is a 50 y.o. female with hx of type 2 DM, morbid obesity, hidradenitis supparativa, current smoker (1.5 ppd), hx of absent seizures, UTI, depression, anxiety, asthma, HLD, celiac disease who initially came to [facility] on 07/08/2025 as transfer with concern [...] to establish care with endocrine provider in [place], [place]. --> Provided patient with address and number of clinic. [[facility] Endocrinology Clinic in the [facility] Physician Building]. -Tentative discharge recommendations: Likely resume [...] Adult Inpatient Diabetes team via secure chat orpaDandong [employer] Electrics us at [phone] during 7a-7p, Tuesday-Tuesday. For after hours please [...] Plan Note - Jason Adnre MD - 07/16/2025 6:52 AM EDT Associated [...] night Postoperative pain Present on Admission: Unknown [facility] Non-Hospital Problems Carpal tunnel syndrome Dehydration [...] Ongoing, Progressing Intervention: Promote Activity and Functional [place] Flowsheets (Taken 07/16/2025128) Self-Care Promotion: independence encouraged BADL personal objects within reach BADL personal routines maintained adaptive equipment use encouraged Problem: Wound Goal: Optimal Coping Outcome: Ongoing, Progressing Intervention: Support Patient and Family Response Flowsheets Taken 07/16/2025128 by Eulalia Estrada RN Supportive Measures: active listening utilized verbalization of feelings encouraged problem-solving facilitated relaxation techniques promoted Taken 07/14/2025 1800 by Josi Ann bottom filler/Support System Care: support provided Goal: Optimal Functional [...] Ongoing, Progressing Intervention: Promote Activity and Functional [place] Flowsheets Taken 07/15/2025 1745 by Denia Boo [...] provided Taken 07/14/2025 1800 by Josi Ann bottom filler/Support System Care: support provided Goal: Optimal Functional [...] Note Cristina Brown 50 y.o. female CSN: [id number] Room/Bed 123/123A Nutrition evaluation type: follow-up Reason for evaluation: Hospital course: 50 y o F transferred [facility] with concern for necrotizing fasciitis; OR 07/08 for excisional debridement of RLE, groin, pubis, and abdominal wall of skin, subcutaneous tissue, and muscle fascia, [id number]. Septic shock secondary to NSTI. Intubated & [...] Supplemental oxygen O2 Delivery Method: Nasal cannula Lincoln Coma Scale Score: 15 Julián Scale Score: [...] Estimated Needs: Kcal: 25-27 kcal/kg adj bw (9021-7729 kcal/d) Protein: 1.5-1.7 g/kg adj bw (143-162 [...] Anxiety Asthma Carpal tunnel syndrome Depression Diabetes ([facility]) H/O absence seizures Hidradenitis High cholesterol [...] Note Cristina Brown 50 y.o. female CSN: [id number] Admission: 07/08/2025 5:58 PM Primary Problem: Necrotizing fasciitis ([facility]) Clinical Nutrition Manager reviewed chart and spoke with patient to complete this Initial Case Management Assessment. PCP: Yenny Dhillon APRN Emergency Contact: Extended Emergency Contact Information Primary Emergency Contact: Yecenia [place] Relation: Sister Preferred language: Indonesian Director Of Revenue Cycle Management needed? No Secondary Emergency Contact: Arnoldo Raymond Address: [address] [place] [address] [place] Relation: Significant Other Preferred language: Indonesian Director Of Revenue Cycle Management needed? No Insurance: Primary Visit Coverage Payer Plan Sponsor Code Group Number Group Name UHC MEDICAID UHC MEDICAID [facility] Primary Visit Coverage Subscriber Subscriber ID Subscriber Name Subscriber SSN Subscriber Address [id number] CRISTINA BROWN [id number] [place] [id number] Patient information: Primary Caregiver: Self Accompanied by/Relationship: Arnoldo Coleelor- significant other Support System: Immediate family, Extended family, Friends Daily Living Activities: Functional Status: Minimum assistance Living Arrangements: Family, Friends Type of Residence: Private residence [address] [place] [id number] Smoker in the Home?: Yes Current DME: Equipment Currently Used at Home: none Income Information: Income Source: Unemployed Income/Expense Information: Expenses exceed income Current Resources Utilized: Food [place] Housing Circumstances-Z Codes: Housing Circumstances (select all [...] Dialysis Services: N/A Living Will/Advance Directive/Power of Silk Screen Layout Drafter /Guardian: N/A Additional Comments: Pt gets her medications from [facility] [place] * Consults - Anupama Braun MBBS [...] HLD, celiac disease who initially came to [facility] on 07/08/2025 as transfer with concern [...] Anxiety, Asthma, Carpal tunnel syndrome, Depression, Diabetes ([facility]/HCC), H/O absence seizures, Hidradenitis, High cholesterol, Hypertension, [...] after discharge close to her home [place]. She agrees to call and make appointment [...] 10 mg 10 mg Oral q6h PRN Cheyanen Chakraborty MD 10 mgat 07/15/25 0457 polyethylene [...] Endocrinology referral - patient requested to see finished metal repairer in [place], [place]. Provided patient with address and number of clinic. [[facility] Endocrinology Clinic in the [facility] Physician Building]. Patient has been on insulin while hospitalized, but utilizing metformin at home with good compliance. Diabetes care complicated by celiac diagnosis - placed nutrition consult to help patient navigate gluten free and diabetes diet. * Assessment & Plan Note - Jason Andre MD - 07/15/2025 7:15 AM EDT Associated Problem(s): Necrotizing fasciitis ([facility]/HCC) - 07/09: debridement of necrotizing fasciitis in [...] 7:15 AM EDT Associated Problem(s): Absence seizure ([facility]/HCC) - On Lamictal 50mg BID at home. [...] night Postoperative pain Present on Admission: Unknown [facility] Non-Hospital Problems Carpal tunnel syndrome Dehydration [...] Ongoing, Progressing Intervention: Promote Activity and Functional [place] Flowsheets Taken 07/14/20252310 by Rita Alejandro RN [...] Ongoing, Progressing Intervention: Promote Activity and Functional [place] Flowsheets (Taken 07/14/2025 1800) Activity Assistance Provided: [...] PM EDT Operative Note Date: 07/14/25 Location: [facility] Name: Cristina Brown, : 1975, Diagnoses: Pre-op Diagnosis Necrotizing fasciitis (CMS/HCC) Post-op Diagnosis Necrotizing fasciitis (CMS/HCC) Procedure(s): Wound irrigation Partial wound closure, total closed 30 cm length Attending Surgeon(s): * Anne Franco - Primary Police Captain Senior(s): * Janell Cross MD - Resident - [...] (mL) 30 mL 07/14/25 1625 [REMOVED] NG/OG [facility] mouth (Removed) Placement Verification [...] (mL) 49 mL 07/10/25 0000 [REMOVED] NG/OG Story Sump 14 Fr Left nostril (Removed) Placement [...] portions of the procedure(s) and immediately available [facility] services the entire duration. See resident [...] Morbid (severe) obesity due to excess calories ([facility]) Complicates all aspect of care * [...] night Postoperative pain Present on Admission: Unknown [facility] Non-Hospital Problems Carpal tunnel syndrome Dehydration [...] clutter-free environment maintained assistive device/personal items within [facility] fall prevention program maintained nonskid [...] clutter-free environment maintained assistive device/personal items within [facility] fall prevention program maintained nonskid [...] Ongoing, Progressing Intervention: Promote Activity and Functional [place] Flowsheets (Taken 07/13/20251826) Activity Assistance Provided: assistance, [...] Note Cristina Brown 50 y.o. female CSN: [id number] Admission: 07/08/2025 5:58 PM Primary Problem: Necrotizing fasciitis (CMS/HCC) Clinical Nutrition Manager reviewed chart and spoke with Cristina to complete this Initial Case Management Assessment. PCP: Yenny Dhillon APRN Emergency Contact: Extended Emergency Contact Information Primary Emergency Contact: Yecenia [place] Relation: Sister Preferred language: Indonesian Director Of Revenue Cycle Management needed? No Secondary Emergency Contact: Arnoldo Raymond Address: [address] [place] [address] [place] Relation: Significant Other Preferred language: Indonesian Director Of Revenue Cycle Management needed? No Insurance: Primary Visit Coverage Payer Plan Sponsor Code Group Number Group Name [facility] MEDICAID [facility] MEDICAID [facility] Primary Visit Coverage Subscriber Subscriber ID Subscriber Name Subscriber N Subscriber Address [id number] CRISTINA BROWN [id number] [place] [address] Patient information: Primary Caregiver: Self Accompanied by/Relationship: Arnoldo Raymond- significant other Support System: Immediate family Daily Living Activities: Functional Status: Independent Living Arrangements: Spouse/Significant other Type of Residence: Private residence [address] [place] [address] Current DME: Equipment Currently Used at Home: none Income Information: Housing Circumstances-Z Codes: Patient Referred to: Anticipated Discharge Date: unknown Patient's Discharge Goal: Referrals sent for Acute Rehab Assistance Available at Discharge: Arnoldo Raymond Discharge Transport: Arnoldo Raymond Follow Up Transport: Arnoldo raymond Home Health / Home Infusion / Outpatient Dialysis Services: none Living Will/Advance Directive/Power of Silk Screen Layout Drafter /Guardian: Additional Comments: CM discussed acute rehab placement with Cristina and Arnoldo Raymond. Their first choice is [facility] in [place], [place]. CM sent referrals in [facility]. Cristina will continue inpatient management for necrotizing [...] 12:36 PM EDT Associated Problem(s): Postoperative pain [facility] * Progress Notes - Aparna Shultz - 07/13/2025 11:59 AM EDT Occupational Therapy Evaluation Patient Name: Cristina Brown Today's Date: 07/13/2025 OT Discharge Recommendations: Acute rehab Equipment Recommended: Defer to facility History Cristina Brown is 50 y.o. female admitted 07/08/2025 for work-up of Necrotizing fasciitis ([facility]). Problem List Active Hospital Problems Diagnosis Date Noted Postoperative pain 07/13/2025 JOSEP (obstructive sleep apnea) 07/11/2025 HLD (hyperlipidemia) 07/10/2025 Acute respiratory failure 07/09/2025 Septic shock ([facility]/HCC) 07/09/2025 Absence seizure (CMS/HCC) 07/09/2025 DM (diabetes mellitus) (CMS/HCC) 07/08/2025 Hidradenitis 07/08/2025 HTN (hypertension), benign 08/31/2023 Urge incontinence 08/31/2023 Smoker 06/09/2023 Depression 06/09/2023 Morbid (severe) obesity due to excess calories ([facility]) 02/15/2022 Chronic obstructive pulmonary disease, unspecified [...] evaluation. Participants in Care Family/Caregiver Present: No Director Of Revenue Cycle Management: Not Applicable Presentation Oxygen Therapy: Supplemental oxygen [...] admission Level of Mobility: Ambulatory- community Mobility [place]: Independent gait without device History of Falls: [...] Mobility Bed Mobility Exam: Scooting/Bridging Level of [place]: Contact guard (seated scoot once sitting up on EOB and able to wiggle back into recliner chair) Bed Mobility Exam: Supine to Sit Level of [place]: Moderate assist (50% patient's effort) Physical/Nonphysical Assist: Verbal Cues, Moderate cues, Additional assist utilized for safety, HOBelevated Assistive Device: Other (SAFETY ANALYST x2) Transfers Transfer Interventions: Patient performed sit < > stand x 3 reps total: Mod A from EOB, Min Afrom recliner chair, and CGA from BSC. Transfer Exam: Sit to stand Level of [place]: Minimum assist (75% patient's effort) Physical/Nonphysical Assist: Verbal Cues, Minimal cues Assistive Device: Walker, rolling (andrea) Transfer Exam: Stand to Sit Level of [place]: Minimum assist (75% patient's effort) Physical/Nonphysical Assist: Verbal Cues, Minimal cues Assistive Device: Walker, rolling (andrea) Transfer Exam: Bed to Chair/Chair to Bed Level of [place]: Minimum assist (75% patient's effort) Physical/Nonphysical Assist: Verbal Cues, Minimal cues, Additional assist utilized for safety Type of Transfer: Sidesteps (bed > chair < > BSC) Assistive Device: Walker, rolling (andrea) Toilet Transfer Level of [place]: Minimum assist (75% patient's effort) Physical/Nonphysical Assist: Nonverbal cues (demo/gestures), Verbal Cues, Set-up required, Minimal cues Type of Transfer: Sidesteps, To bedside commode (ordered bariatric BSC from [employer] as patient had difficulty getting on/off BSC [...] to allow bedside care to take placed (GLOVE PAIRER entering to take vitals; RN enforcing bandages [...] for further toileting ADL needs. Standardized Assessments [facility] 6-Click Daily Activities Help from Other: Don/Doff Regular Lower Body Clothings: A lot Help From Other: Bathing: A lot Help From Other: Toileting: A lot Help From Other: Don/Doff Upper Body Clothings: Little Help From Other: Grooming: None Help From Other: Eating Meals: None [facility] 6 Click - Daily Activities Score: 17 [...] admitted 07/08/2025 for work-up of Necrotizing fasciitis ([facility]). Problem List Active Hospital Problems Diagnosis [...] move. Participants in Care Family/Caregiver Present: No Director Of Revenue Cycle Management: Not Applicable Presentation Oxygen Therapy: Supplemental oxygen [...] admission Level of Mobility: Ambulatory- community Mobility [place]: Independent gait without device History of Falls: [...] Mobility Bed Mobility Exam: Scooting/Bridging Level of [place]: Contact guard (seated scoot once sitting up on EOB and able to wiggle back into recliner chair) Bed Mobility Exam: Supine to Sit Level of [place]: Moderate assist (50% patient's effort) Physical/Nonphysical Assist: Verbal Cues, Moderate cues, Additional assist utilized for safety, HOBelevated Assistive Device: Other (SAFETY ANALYST x 2) Transfers Transfer Interventions: Patient performed sit < > stand x 3 reps total: Mod A from EOB, Min Afrom recliner chair, and CGA from BSC. Cues for safe hand placement during transitions using RW. Transfer Exam: Sit to stand Level of [place]: Minimum assist (75% patient's effort) Physical/Nonphysical Assist: Verbal Cues, Minimal cues Assistive Device: Walker, rolling (andrea) Transfer Exam: Stand to Sit Level of [place]: Minimum assist (75% patient's effort) Physical/Nonphysical Assist: Verbal Cues, Minimal cues Assistive Device: Walker, rolling (andrea) Transfer Exam: Bed to Chair/Chair to Bed Level of [place]: Minimum assist (75% patient's effort) Physical/Nonphysical Assist: Verbal Cues, Minimal cues, Additional assist utilized for safety Type of Transfer: Sidesteps (bed > chair < > BSC) Assistive Device: Walker, rolling (andrea) Toilet Transfer Level of [place]: Minimum assist (75% patient's effort) Physical/Nonphysical Assist: [...] assistance Standardized Assessments Standardized Assessments Standardized Assessments: [facility] 6-Clicks Mobility Assessment [facility] 6-Clicks Mobility Assessment Difficulty patient has turning [...] climbing 3-5 steps with a railing?: Unable [facility] 6-Clicks Mobility Assessment Total : 15 No [...] anxiety, asthma, HLD, celiac disease, presenting to [facility] on 07/08/2025 as transfer with concern [...] stay, and so will be discharged to [facility]. * Assessment & Plan Note - [...] 07/13/2025 7:46 AM EDT 07/13/25 Cristina Brown [facility] 50-year-old female with past medical history of [...] night Postoperative pain Present on Admission: Unknown [facility] Non-Hospital Problems Carpal tunnel syndrome Dehydration [...] Airway None O2 Delivery Method: Nasal cannula VT SUP: 10 cm H20 Insp Time (sec): 1 sec FiO2 (%): 40 % S RR: 20 VT SUP: 10 cm H20 Output by Drain [...] saw and evaluated the patient with the medical/DRAWING SUPERVISOR/PA student. I discussed the case with the medical/DRAWING SUPERVISOR/PA student and agree with the findings and [...] PM EDT Operative Note Date: 07/11/25 Location: [facility] Name: Cristina Brown, : 1975, Diagnoses: Pre-op Diagnosis Necrotizing fasciitis (CMS/HCC) Post-op Diagnosis Necrotizing fasciitis (CMS/HCC) Procedure(s): Right groin/perineum/thigh/abdominal wound exploration and washout Attending Surgeon(s): * Dorcas Hennessy - Primary Police Captain Senior(s): * Janell Cross MD - Resident - [...] Note Cristina Brown 50 y.o. female CSN: [id number] Room/Bed 133/133A Nutrition evaluation type: follow-up Reason for evaluation: Hospital course: 50 y o F transferred from [facility] with concern for necrotizing fasciitis; OR 07/08 for excisional debridement of RLE, groin, pubis, and abdominal wall of skin, subcutaneous tissue, and muscle fascia, [id number]. Septic shock secondary to NSTI. Intubated & [...] Estimated Needs: Kcal: 25-27 kcal/kg adj bw (7749-7317 kcal/d) Protein: 1.5-1.7 g/kg adj bw (143-162 [...] -will monitor NPO duration -po per MD/ LIGHTING TECHNICIAN -when po diet appropriate, rec CC3, Gluten [...] Vent Status (ETT, Trach Only): In use VT SUP: 5 cm H20 Insp Time (sec): 1.5 sec Vent Mode: PS FiO2 (%): 60 % S RR: 14 VT SUP: 5 cm H20 MAP (cm H2O): [...] supervised * Anesthesia PACU Signout - Christophe eHrnandez DO - 07/10/2025 6:59 PM EDT Patient: [...] PM EDT Operative Note Date: 07/10/25 Location: [facility] Name: Cristina Brown, : 1975, Diagnoses: Pre-op Diagnosis Necrotizing fasciitis (CMS/HCC) Post-op Diagnosis Necrotizing fasciitis (CMS/HCC) Procedure(s): Right groin/perineum/thigh/abdominal wound exploration, debridement, and washout Attending Surgeon(s): * Dorcas Hennessy - Primary Police Captain Senior(s): * Shelby Whittington MD - Resident - [...] 07/08/252341 Estimated Blood Loss: Minimal Drains: NG/OG Story Sump 14 Fr Left nostril (Active) Placement [...] Findings: All viable tissue. Wound measuring approximately [id number]. Packed with 5 kerlix tied together. Indications: Cristina Brown is an 50 y.o. female who is having surgery for Necrotizing fasciitis ([facility]). Patient presented in septic shock secondary [...] Edited by: Lidia Ellis MD at 07/10/2025 4065 Relevant review of systems was obtained as [...] Vent Status (ETT, Trach Only): In use VT SUP: 5 cm H20 Insp Time (sec): 1.5 sec Vent Mode: PS FiO2 (%): 50 % S RR: 14 VT SUP: 5 cm H20 MAP (cm H2O): [...] Morbid (severe) obesity due to excess calories ([facility]) Yes Overview Addendum 07/09/2025 4:07 PM by Lidia Ellis MD Complicates care. Smoker Yes Overview Signed 07/09/2025 3:05 PM by Lidia Ellis MD - Patient smokes 0.5-1ppd. - Smoking cessation when appropriate. Urge incontinence Yes DM (diabetes mellitus) ([facility]) Yes Overview Addendum 07/09/2025 4:11 PM by Lidia Ellis MD - Patient hyperglycemic, up to 300s. - Insulin drip per protocol. Hidradenitis Yes Absence seizure ([facility]) (Chronic) Yes Overview Addendum 07/10/2025 4:52 PM by Lidia Ellis MD On Lamictal 50mg BID. Acute respiratory failure Yes Overview Signed 07/09/2025 3:57 PM by Lidia Ellis MD - Patient presenting in septic shock due to RLE necrotizing fasciitis. - Requiring ventilator for respiratory support. Wean as tolerated. Septic shock ([facility]) Yes Overview Addendum 07/10/2025 4:53 PM [...] Protection: absorbent pad utilized/changed positioning supports utilized [id number] areas padded [id number] areas padded Problem: Skin Injury Risk Increased [...] at 30-45 degrees Taken 07/09/2025 1447 by Jeaan Bear Pressure Reduction Techniques: heels elevated off [...] Note Cristina Brown 50 y.o. female CSN: [id number] Room/Bed 133/133A Nutrition evaluation type: assessment Reason for evaluation: provider consult Hospital course: 50 y o F transferred from [facility] with concern for necrotizing fasciitis; OR 07/08 for excisional debridement of RLE, groin, pubis, and abdominal wall of skin, subcutaneous tissue, and muscle fascia, [id number]. Septic shock secondary to NSTI. Intubated & [...] oz) Estimated Needs: Kcal: 22-25 kcal/kg IBW (9676-6271 kcal/d) Protein: 2-2.5 g/kg IBW (136-171 g/d) [...] ICU Daily Progress Note 07/09/25 Cristina Anayaehart [facility] 50-year-old female with past medical history of [...] decreased. Palpations: Abdomen is soft. Skin: Comments: [id number] open wound with no extension of cellulitis. [...] PEEP (cmH2O): 18 S VT: 450 mL VT SUP: 10 cm H20 Insp Time (sec): 0.8 sec Vent Mode: PS FiO2 (%): 50 % S RR: 22 S VT: 450 mL VT SUP: 10 cm H20 MAP (cm H2O): [...] appropriate. Urge incontinence Yes DM (diabetes mellitus) ([facility]/HCC) Yes Overview Addendum 07/09/2025 4:11 PM by Lidia Ellis MD - Patient hyperglycemic, up to 300s. - Insulin drip per protocol. Hidradenitis Yes Absence seizure ([facility]) (Chronic) Yes Overview Addendum 07/09/2025 4:08 [...] PM EDT Operative Note Date: 07/08/25 Location: [facility] Name: Cristina Brown, : 1975, Diagnoses: Pre-op Diagnosis Necrotizing fasciitis (CMS/HCC) Post-op Diagnosis Necrotizing fasciitis (CMS/HCC) Procedure(s): Excisional debridement of right thigh, groin pubis and abdominal wall including skin, subcutaneous tissue and fascia measuring 65 x 20 x 2cm Attending Surgeon(s): * Luanne Crawford - Primary Police Captain Senior(s): * Kristy Fields MD - Resident - [...] 07/08/2025 9:01 PM EDT Date: 07/09/25 Location: [facility] Name: Cristina Brown, : 1975, Diagnoses: Pre-op Diagnosis Necrotizing fasciitis (CMS/HCC) Post-op Diagnosis Necrotizing fasciitis (CMS/HCC) Procedure(s): Excisional debridement of right lower extremity, groin, pubis, and abdominal wall of skin, subcutaneous tissue, and muscle fascia, 65x20 cm Attending Surgeon(s): * Luanne Crawford - Primary Police Captain Senior(s): * Kristy Fields MD - Resident - [...] to Emergency General Surgery Consult performed by: Amnia Ramirez MD Consult ordered by: My Charles MD History Of Present Illness Cristina Brown is a 50 y.o. female with PMH of DM, hidradenitis supparativa, current smoker (1.5 ppd), hx of absent seizures, UTI, depression, anxiety, asthma, HLD, celiac disease, presenting to [facility] on 07/08/2025 as transfer with concern for [...] Anxiety, Asthma, Carpal tunnel syndrome, Depression, Diabetes ([facility]), H/O absence seizures, Hidradenitis, High cholesterol, [...] tunnel syndrome Chronic obstructive pulmonary disease, unspecified ([facility]/HCC) Overview Signed 08/31/2023 9:36 AM by Janell Bueno Last Assessment & Plan: Condition: stable Reviewed trigger avoidance and reviewed proper use of inhalers and rescue medications. Reviewed concerning signs/symptoms and ER precautions. Follow up in: three months Dehydration Hidradenitis suppurativa History of hysterectomy HTN (hypertension), benign Depression Morbid (severe) obesity due to excess calories ([facility]) Overview Signed 08/31/2023 9:36 AM by [...] mL IVPB (vial adapter required) 2 g [id number] Deepthi Garcai MD linezolid (Zyvox) injection 600 mg 600 [...] ppd), asthma, HLD, celiac disease, presenting to [facility] on 07/08/2025 as transfer with concern [...] 4% (Hibiclens). Acknowledged AMINA RAMIREZ 07/08/251916 Void regional production manager to OR Once Acknowledged AMINA RAMIREZ 07/08/251916 [...] None Disposition Admit Admitting/Attending Physician: LUANNE CRAWFORD [[id number]] Provider Care Team: E EMERGENCY GENERAL SURGERY [...] EDT Office Visit Medical Office Building Urology [facility] [address], [address] [place] [address] Deepthi Matamoros, HOOP EXPANDER [address] [place] [address] 08/20/2025 10:30 AM EDT Office Visit [facility] General Surgery [address], [address] [place] [address] Lilliana Morfin, HOOP EXPANDER [address] [place] [address] Scheduled Referrals Name Type Priority Associated Diagnoses [...] UNSOLICITED RESULTS Routine 07/11/2025 9:57 AM EDT [facility], E/M 30-74 MINUTES Routine 07/11/2025 [...] ECG ADULT STAT 07/10/2025 8:42 AM EDT [facility], E/M 30-74 MINUTES Routine 07/10/2025 [...] CO2 MONITORING Routine 07/09/2025 8:00 AM EDT [facility], E/M 30-74 MINUTES Routine 07/09/2025 [...] PANEL, PLASMA STAT 07/08/2025 6:14 PM EDT [facility], E/M 30-74 MINUTES Routine 07/08/2025 [...] 07/19/2025 5:32 PM EDT [facility] School Nurse ID Laura Baez 025 5:32 PM EDT [facility] Device ID [id number] 07/19/2025 5:32 PM EDT [facility] Specimen Type POC Capillary 07/19/2025 5:32 PM EDT [facility] Blood Capillary blood specimen / Unknown 07/19/2025 12:27 PM EDT 07/19/2025 5:32 PM EDT us Anne Franco MD LAB POINT OF CARE TEST DOCKED DEVICE UNSOLICITED RESULTS Final Result [facility] [address] [place] [address] * Phosphorus (07/19/2025 4:28 AM EDT) Phosphorus, Plasma 3.6 2.5 - 4.5 mg/dL 07/19/2025 5:03 AM EDT [facility] Blood Venous blood specimen / Unknown Venipuncture / Unknown 07/19/2025 4:28 AM EDT 07/19/2025 4:35 AM EDT Anne Franco MD LAB BLOOD ORDERABLES Sarah l Result [facility] [address] [place] [address] * (ABNORMAL) Magnesium (07/19/2025 4:28 AM EDT) Magnesium, Plasma 1.8(L) 1.9 - 2.4 mg/dL 07/19/2025 5:03 AM EDT [facility] Blood Venous blood specimen / Unknown Venipuncture / Unknown 07/19/2025 4:28 AM EDT 07/19/2025 4:35 AM EDT Anne Franco MD LAB BLOOD ORDERABLES Sarah l Result [facility] [address] [place] [address] * (ABNORMAL) CBC W/O Differential (07/19/2025 4:28 AM EDT) Pathologist [facility] WBC Count 18.39(H) 3.70 - 10.30 10*3/uL LAB HEMATOLOGY METHOD 07/19/2025 4:51 AM EDT [facility] RBC Count 3.50(L) 3.90 - 5.20 10*6/uL LAB HEMATOLOGY METHOD 07/19/2025 4:51 AM EDT [facility] HGB 9.6(L) 11.2 - 15.7 g/dL LAB HEMATOLOGY METHOD 07/19/2025 4:51 AM EDT [facility] HCT 30.7(L) 34.0 - 45.0 % LAB HEMATOLOGY METHOD 07/19/2025 4:51 AM EDT [facility] Platelet Count 627(H) 155 - 369 10*3/uL LAB HEMATOLOGY METHOD 07/19/2025 4:51 AM EDT [facility] MCV 88 79 - 98 fL LAB HEMATOLOGY METHOD 07/19/2025 4:51 AM EDT [facility] MCH 27.4 26.0 - 32.0 pg LAB HEMATOLOGY METHOD 07/19/2025 4:51 AM EDT [facility] MCHC 31.3 30.7 - 35.5 g/dL LAB HEMATOLOGY METHOD 07/19/2025 4:51 AM EDT [facility] RDW 18.2(H) 11.5 - 14.5 % LAB HEMATOLOGY METHOD 07/19/2025 4:51 AM EDT [facility] MPV 10.2 8.8 - 12.5 fL LAB HEMATOLOGY METHOD 07/19/2025 4:51 AM EDT [facility] nRBC 0.1(H) <=0.0 per 100 WBCs LAB HEMATOLOGY METHOD 07/19/2025 4:51 AM EDT [facility] Blood Venous blood specimen / Unknown Venipuncture / Unknown 07/19/2025 4:28 AM EDT 07/19/2025 4:36 AM EDT us Anne Franco MD LAB BLOOD ORDERABLES Sarah bennett Result [facility] [address] [place] [address] * (ABNORMAL) Basic metabolic panel (07/19/2025 4:28 AM EDT) Glucose, Plasma 153(H) 74 - 99 mg/dL 07/19/2025 5:03 AM EDT [facility] BUN, Plasma 14 7 - 21 mg/dL 07/19/2025 5:03 AM EDT [facility] Creatinine, Plasma 0.73 0.60 - 1.10 mg/dL 07/19/2025 5:03 AM EDT [facility] BUN/Creatinine Ratio 19 07/19/2025 5:03 AM EDT [facility] Sodium, Plasma 137 136 - 145 mmol/L 07/19/2025 5:03 AM EDT [facility] Potassium, Plasma 4.3 3.6 - 4.9 mmol/L 07/19/2025 5:03 AM EDT [facility] Chloride, Plasma 97 97 - 107 mmol/L 07/19/2025 5:03 AM EDT [facility] CO2, Plasma 28 22 - 29 mmol/L 07/19/2025 5:03 AM EDT [facility] Anion Gap 12 6 - 16 mmol/L 07/19/2025 5:03 AM EDT [facility] Total Calcium, Plasma 9.0 8.9 - 10.2 mg/dL 07/19/2025 5:03 AM EDT [facility] eGFRcr 101.0 mL/min/1.7 3m*2 07/19/2025 5:03 AM EDT [facility] Comment:Reported eGFRcr in m L/min/1.73m2 is based the CKD-EPI 2020 equation that does not use a race coefficient. Blood Venous blood specimen / Unknown Venipuncture / Unknown 07/19/2025 4:28 AM EDT 07/19/2025 4:35 AM EDT us Anne Franco MD LAB BLOOD ORDERABLES Sarah bennett Result [facility] [address] [place] [address] * (ABNORMAL) POCT glucose meter (07/18/2025 8:33 PM EDT) Pathologist [facility] POCT Glucose 141(H) 74 - 99 mg/dL 07/18/2025 8:36 PM EDT [facility] Comment:Accuracy of a glucos e result [...] Comment 07/18/2025 8:36 PM EDT [facility] School Nurse ID MartinezZach fuentes 8:36 PM EDT [facility] Device ID [id number] 07/18/2025 8:36 PM EDT [facility] Specimen Type POC Capillary 07/18/2025 8:36 PM EDT [facility] Blood Capillary blood specimen / Unknown 07/18/2025 8:33 PM EDT 07/18/2025 8:36 PM EDT Anne Franco MD LAB POINT OF CARE TEST DOCKED DEVICE UNSOLICITED RESULTS Final Result Performing Organization Address City/[facility] Co de Phone Number [facility] [address] [place] [address] * (ABNORMAL) POCT glucose meter (07/18/2025 6:07 PM EDT) [facility] POCT Glucose 222(H) 74 - 99 mg/dL [...] 07/18/2025 6:08 PM EDT [facility] School Nurse ID Monique Jacques 6:08 PM EDT [facility] Device ID [id number] 07/18/2025 6:08 PM EDT [facility] Specimen Type POC Capillary 07/18/2025 6:08 PM EDT [facility] Blood Capillary blood specimen / Unknown 07/18/2025 6:07 PM EDT 07/18/2025 6:08 PM EDT Anne Franco MD LAB POINT OF CARE TEST DOCKED DEVICE UNSOLICITED RESULTS Final Result Performing Organization Address City/[facility] Co de Phone Number [facility] [address] [place] [address] * (ABNORMAL) POCT glucose meter (07/18/2025 12:36 PM EDT) Pathologist [facility] POCT Glucose 151(H) 74 - 99 [...] Comment 07/18/2025 12:38 PM EDT [facility] School Nurse ID Laura Baez 025 12:38 PM EDT [facility] Device ID [id number] 07/18/2025 12:38 PM EDT [facility] Specimen Type POC Capillary 07/18/2025 12:38 PM EDT [facility] Blood Capillary blood specimen / Unknown 07/18/2025 12:36 PM EDT 07/18/2025 12:38 PM EDT Anne Franco MD LAB POINT OF CARE TEST DOCKED DEVICE UNSOLICITED RESULTS Final Result [facility] [address] [place] [address] * (ABNORMAL) POCT glucose meter (07/18/2025 8:39 AM EDT) [facility] POCT Glucose 149(H) 74 - 99 mg/dL [...] Comment 07/18/2025 8:41 AM EDT [facility] School Nurse ID Laura Baez 025 8:41 AM EDT [facility] Device ID [id number] 07/18/2025 8:41 AM EDT [facility] Specimen Type POC Capillary 07/18/2025 8:41 AM EDT [facility] Blood Capillary blood specimen / Unknown 07/18/2025 8:39 AM EDT 07/18/2025 8:41 AM EDT us Anne Franco MD LAB POINT OF CARE TEST DOCKED DEVICE UNSOLICITED RESULTS Final Result [facility] [address] [place] [address] * (ABNORMAL) Basic metabolic panel (07/18/2025 6:03 AM EDT) Pathologist [facility] Glucose, Plasma 163(H) 74 - 99 mg/dL 07/18/2025 6:45 AM EDT [facility] BUN, Plasma 11 7 - 21 mg/dL 07/18/2025 6:45 AM EDT [facility] Creatinine, Plasma 0.65 0.60 - 1.10 mg/dL 07/18/2025 6:45 AM EDT [facility] BUN/Creatinine Ratio 17 07/18/2025 6:45 AM EDT [facility] Sodium, Plasma 138 136 - 145 mmol/L 07/18/2025 6:45 AM EDT [facility] Potassium, Plasma 3.8 3.6 - 4.9 mmol/L 07/18/2025 6:45 AM EDT [facility] Chloride, Plasma 99 97 - 107 mmol/L 07/18/2025 6:45 AM EDT [facility] CO2, Plasma 29 22 - 29 mmol/L 07/18/2025 6:45 AM EDT [facility] Anion Gap 10 6 - 16 mmol/L 07/18/2025 6:45 AM EDT [facility] Total Calcium, Plasma 8.5(L) 8.9 - 10.2 mg/dL 07/18/2025 6:45 AM EDT [facility] eGFRcr 108.1 mL/min/1.7 3m*2 07/18/2025 6:45 AM EDT [facility] Comment:Reported eGFRcr in m L/min/1.73m2 is based the CKD-EPI 2020 equation that does not use a race coefficient. Blood Venous blood specimen / Unknown Venipuncture / Unknown 07/18/2025 6:03 AM EDT 07/18/2025 6:12 AM EDT us Anne Franco MD LAB BLOOD ORDERABLES Sarah sabrina Result [facility] [address] [place] [address] * (ABNORMAL) CBC W/O Differential (07/18/2025 6:03 AM EDT) WBC Count 16.76(H) 3.70 - 10.30 10*3/uL LAB HEMATOLOGY METHOD 07/18/2025 6:25 AM EDT [facility] RBC Count 3.25(L) 3.90 - 5.20 10*6/uL LAB HEMATOLOGY METHOD 07/18/2025 6:25 AM EDT [facility] HGB 9.1(L) 11.2 - 15.7 g/dL LAB HEMATOLOGY METHOD 07/18/2025 6:25 AM EDT [facility] HCT 28.8(L) 34.0 - 45.0 % LAB HEMATOLOGY METHOD 07/18/2025 6:25 AM EDT [facility] Platelet Count 523(H) 155 - 369 10*3/uL LAB HEMATOLOGY METHOD 07/18/2025 6:25 AM EDT [facility] MCV 89 79 - 98 fL LAB HEMATOLOGY METHOD 07/18/2025 6:25 AM EDT [facility] MCH 28.0 26.0 - 32.0 pg LAB HEMATOLOGY METHOD 07/18/2025 6:25 AM EDT [facility] MCHC 31.6 30.7 - 35.5 g/dL LAB HEMATOLOGY METHOD 07/18/2025 6:25 AM EDT [facility] RDW 17.6(H) 11.5 - 14.5 % LAB HEMATOLOGY METHOD 07/18/2025 6:25 AM EDT [facility] MPV 10.3 8.8 - 12.5 fL LAB HEMATOLOGY METHOD 07/18/2025 6:25 AM EDT [facility] nRBC 0.0 <=0.0 per 100 WBCs LAB HEMATOLOGY METHOD 07/18/2025 6:25 AM EDT [facility] Blood Venous blood specimen / Unknown Venipuncture / Unknown 07/18/2025 6:03 AM EDT 07/18/2025 6:12 AM EDT Anne Franco MD LAB BLOOD ORDERABLES Sarah l Result Performing Organization Address City/[facility] Co de Phone Number [facility] [address] [place] [address] * (ABNORMAL) POCT glucose meter (07/17/2025 10:33 PM EDT) [facility] POCT Glucose 171(H) 74 - 99 mg/dL [...] Comment 07/17/2025 10:35 PM EDT [facility] School Nurse ID Nipper, 07/17/2025 10:35 PM EDT [facility] Device ID [id number] 07/17/2025 10:35 PM EDT [facility] Specimen Type POC Capillary 07/17/2025 10:35 PM EDT [facility] Blood Capillary blood specimen / Unknown 07/17/2025 10:33 PM EDT 07/17/2025 10:35 PM EDT Anne Farnco MD LAB POINT OF CARE TEST DOCKED DEVICE UNSOLICITED RESULTS Final Result Performing Organization Address City/[facility]/ZIP Co de Phone Number [facility] [address] [place] [address] * PERIPHERAL IV (SMARTFORM LINK) (07/17/2025 5:14 [...] Comment 07/17/2025 5:12 PM EDT [facility] School Nurse ID Monique Jacques 5:12 PM EDT [facility] Device ID [id number] 07/17/2025 5:12 PM EDT [facility] Specimen Type POC Capillary 07/17/2025 5:12 PM EDT [facility] Blood Capillary blood specimen / Unknown 07/17/2025 5:10 PM EDT 07/17/2025 5:12 PM EDT Anne Franco MD LAB POINT OF CARE TEST DOCKED DEVICE UNSOLICITED RESULTS Final Result [facility] [address] [place] [address] * (ABNORMAL) POCT glucose meter (07/17/2025 12:06 [...] Comment 07/17/2025 12:07 PM EDT [facility] School Nurse ID Josi Ann 12:07 PM EDT [facility] Device ID [id number] 07/17/2025 12:07 PM EDT [facility] Specimen Type POC Capillary 07/17/2025 12:07 PM EDT [facility] Blood Capillary blood specimen / Unknown 07/17/2025 12:06 PM EDT 07/17/2025 12:07 PM EDT us Anne Franco MD LAB POINT OF CARE TEST DOCKED DEVICE UNSOLICITED RESULTS Final Result Performing Organization Address City/State/[facility] Co de Phone Number [facility] [address] [place] [address] * [place] Extremity Limited MSK or Soft [...] Detected Not Detected 07/17/2025 12:[address] [facility] Swab Both anterior nares / Unknown Non-blood Collection / Unknown 07/17/2025 10:14 AM EDT 07/17/2025 10:33 AM EDT Narrative [facility] - 07/17/2025 12:11 PM [...] MICROBIOLOGY - GENERAL ORDER LUANNE Final Result [facility] [address] [place] [address] * (ABNORMAL) POCT glucose meter (07/17/2025 9:35 AM EDT) POCT Glucose 139(H) 74 - 99 mg/dL 07/17/2025 9:37 AM EDT [facility] Comment:Accuracy of a glucos e [...] Comment 07/17/2025 9:37 AM EDT [facility] School Nurse ID Josi Ann 9:37 AM EDT [facility] Device ID [id number] 07/17/2025 9:37 AM EDT [facility] Specimen Type POC Capillary 07/17/2025 9:37 AM EDT [facility] Blood Capillary blood specimen / Unknown 07/17/2025 9:35 AM EDT 07/17/2025 9:37 AM EDT us Anne Franco MD LAB POINT OF CARE TEST DOCKED DEVICE UNSOLICITED RESULTS Final Result [facility] [address] [place] [address] * (ABNORMAL) Basic metabolic panel (07/17/2025 5:20 AM EDT) Glucose, Plasma 140(H) 74 - 99 mg/dL 07/17/2025 5:56 AM EDT [facility] BUN, Plasma 8 7 - 21 mg/dL 07/17/2025 5:56 AM EDT [facility] Creatinine, Plasma 0.59(L) 0.60 - 1.10 mg/dL 07/17/2025 5:56 AM EDT [facility] BUN/Creatinine Ratio 14 07/17/2025 5:56 AM EDT [facility] Sodium, Plasma 139 136 - 145 mmol/L 07/17/2025 5:56 AM EDT [facility] Potassium, Plasma 3.8 3.6 - 4.9 mmol/L 07/17/2025 5:56 AM EDT [facility] Chloride, Plasma 97 97 - 107 mmol/L 07/17/2025 5:56 AM EDT [facility] CO2, Plasma 31(H) 22 - 29 mmol/L 07/17/2025 5:56 AM EDT [facility] Anion Gap 11 6 - 16 mmol/L 07/17/2025 5:56 AM EDT [facility] Total Calcium, Plasma 8.6(L) 8.9 - 10.2 mg/dL 07/17/2025 5:56 AM EDT [facility] eGFRcr 110.6 mL/min/1.7 3m*2 07/17/2025 5:56 AM EDT [facility] Comment:Reported eGFRcr in m L/min/1.73m2 is based the CKD-EPI 2020 equation that does not use a race coefficient. Blood Venous blood specimen / Unknown Venipuncture / Unknown 07/17/2025 5:20 AM EDT 07/17/2025 5:27 AM EDT us Anne Franco MD LAB BLOOD ORDERABLES Sarah l Result [facility] [address] [place] [address] * Phosphorus, Plasma (07/17/2025 5:20 AM EDT) Phosphorus, Plasma 3.0 2.5 - 4.5 mg/dL 07/17/2025 5:56 AM EDT [facility] Blood Venous blood specimen / Unknown Venipuncture / Unknown 07/17/2025 5:20 AM EDT 07/17/2025 5:27 AM EDT us Anne Franco MD LAB BLOOD ORDERABLES Sarah l Result [facility] [address] [place] [address] * (ABNORMAL) Magnesium, Plasma (07/17/2025 5:20 AM EDT) Magnesium, Plasma 1.8(L) 1.9 - 2.4 mg/dL 07/17/2025 5:56 AM EDT [facility] Blood Venous blood specimen / Unknown Venipuncture / Unknown 07/17/2025 5:20 AM EDT 07/17/2025 5:27 AM EDT us Anne Franco MD LAB BLOOD ORDERABLES Sarah l Result [facility] [address] [place] [id number] * (ABNORMAL) CBC W/O Differential (07/17/2025 5:20 AM EDT) [facility] Signature WBC Count 22.29(H) 3.70 - 10.30 10*3/uL LAB HEMATOLOGY METHOD 07/17/2025 5:37 AM EDT [facility] RBC Count 3.36(L) 3.90 - 5.20 10*6/uL LAB HEMATOLOGY METHOD 07/17/2025 5:37 AM EDT [facility] HGB 9.2(L) 11.2 - 15.7 g/dL LAB HEMATOLOGY METHOD 07/17/2025 5:37 AM EDT [facility] HCT 29.4(L) 34.0 - 45.0 % LAB HEMATOLOGY METHOD 07/17/2025 5:37 AM EDT [facility] Platelet Count 484(H) 155 - 369 10*3/uL LAB HEMATOLOGY METHOD 07/17/2025 5:37 AM EDT [facility] MCV 88 79 - 98 fL LAB HEMATOLOGY METHOD 07/17/2025 5:37 AM EDT [facility] MCH 27.4 26.0 - 32.0 pg LAB HEMATOLOGY METHOD 07/17/2025 5:37 AM EDT [facility] MCHC 31.3 30.7 - 35.5 g/dL LAB HEMATOLOGY METHOD 07/17/2025 5:37 AM EDT [facility] RDW 17.3(H) 11.5 - 14.5 % LAB HEMATOLOGY METHOD 07/17/2025 5:37 AM EDT [facility] MPV 10.4 8.8 - 12.5 fL LAB HEMATOLOGY METHOD 07/17/2025 5:37 AM EDT [facility] nRBC 0.1(H) <=0.0 per 100 WBCs LAB HEMATOLOGY METHOD 07/17/2025 5:37 AM EDT [facility] Blood Venous blood specimen / Unknown Venipuncture / Unknown 07/17/2025 5:20 AM EDT 07/17/2025 5:27 AM EDT us Anne Franco MD LAB BLOOD ORDERABLES Sarah l Result [facility] [address] [place] [address] * (ABNORMAL) POCT glucose meter (07/16/2025 8:24 PM EDT) [facility] POCT Glucose 162(H) 74 - 99 mg/dL [...] Comment 07/16/2025 8:26 PM EDT [facility] School Nurse ID Lacie Marcelo 07/16/20 8:26 PM EDT [facility] Device ID [id number] 07/16/2025 8:26 PM EDT [facility] Specimen Type POC Capillary 07/16/2025 8:26 PM EDT [facility] Blood Capillary blood specimen / Unknown 07/16/2025 8:24 PM EDT 07/16/2025 8:26 PM EDT Anne Franco MD LAB POINT OF CARE TEST DOCKED DEVICE UNSOLICITED RESULTS Final Result Performing Organization Address City/[facility]/ZIP Co de Phone Number [facility] [address] [place] [address] * (ABNORMAL) POCT glucose meter (07/16/2025 5:34 PM EDT) [facility] POCT Glucose 190(H) 74 - 99 mg/dL [...] 07/16/2025 5:36 PM EDT [facility] School Nurse ID Ludwig Diego 07/16/20 5:36 PM EDT [facility] Device ID [id number] 07/16/2025 5:36 PM EDT [facility] Specimen Type POC Capillary 07/16/2025 5:36 PM EDT [facility] Blood Capillary blood specimen / Unknown 07/16/2025 5:34 PM EDT 07/16/2025 5:36 PM EDT Anne Franco MD LAB POINT OF CARE TEST DOCKED DEVICE UNSOLICITED RESULTS Final Result Performing Organization Address City/[facility]/ZIP Co de Phone Number [facility] [address] [place] [address] * (ABNORMAL) POCT glucose meter (07/16/2025 12:06 PM EDT) [facility] POCT Glucose 150(H) 74 - 99 mg/dL [...] 07/16/2025 12:08 PM EDT [facility] School Nurse ID Diego Munroe 07/16/20 12:08 PM EDT [facility] Device ID [id number] 07/16/2025 12:08 PM EDT [facility] Specimen Type POC Capillary 07/16/2025 12:08 PM EDT [facility] Blood Capillary blood specimen / Unknown 07/16/2025 12:06 PM EDT 07/16/2025 12:08 PM EDT us Anne Franco MD LAB POINT OF CARE TEST DOCKED DEVICE UNSOLICITED RESULTS Final Result Performing Organization Address City/[facility] Co de Phone Number [facility] [address] [place] [address] * XR Chest 1 View (07/16/2025 11:25 [...] Comment 07/16/2025 8:24 AM EDT [facility] School Nurse ID Diego Munroe 07/16/20 8:24 AM EDT [facility] Device ID [id number] 07/16/2025 8:24 AM EDT [facility] Specimen Type POC Capillary 07/16/2025 8:24 AM EDT [facility] Blood Capillary blood specimen / Unknown 07/16/2025 8:22 AM EDT 07/16/2025 8:24 AM EDT us Anne Franco MD LAB POINT OF CARE TEST DOCKED DEVICE UNSOLICITED RESULTS Final Result [facility] [address] [place] [address] * Phosphorus (07/16/2025 5:25 AM EDT) Phosphorus, Plasma 2.8 2.5 - 4.5 mg/dL 07/16/2025 7:12 AM EDT [facility] Blood Venous blood specimen / Unknown Venipuncture / Unknown 07/16/2025 5:25 AM EDT 07/16/2025 5:33 AM EDT us Anne Franco MD LAB BLOOD ORDERABLES Sarah l Result [facility] [address] [place] [address] * (ABNORMAL) Magnesium (07/16/2025 5:25 AM EDT) Pathologist [facility] Magnesium, Plasma 1.8(L) 1.9 - 2.4 mg/dL 07/16/2025 7:12 AM EDT [facility] Blood Venous blood specimen / Unknown Venipuncture / Unknown 07/16/2025 5:25 AM EDT 07/16/2025 5:33 AM EDT Anne Franco MD LAB BLOOD ORDERABLES Sarah l Result Performing Organization Address City/[facility]/ZIP Co de Phone Number [facility] [address] [place] [address] * (ABNORMAL) Basic metabolic panel (07/16/2025 5:25 AM EDT) Pathologist [facility] Glucose, Plasma 149(H) 74 - 99 mg/dL 07/16/2025 6:01 AM EDT [facility] BUN, Plasma 9 7 - 21 mg/dL 07/16/2025 6:01 AM EDT [facility] Creatinine, Plasma 0.48(L) 0.60 - 1.10 mg/dL 07/16/2025 6:01 AM EDT [facility] BUN/Creatinine Ratio 19 07/16/2025 6:01 AM EDT [facility] Sodium, Plasma 140 136 - 145 mmol/L 07/16/2025 6:01 AM EDT [facility] Potassium, Plasma 3.4(L) 3.6 - 4.9 mmol/L 07/16/2025 6:01 AM EDT [facility] Chloride, Plasma 99 97 - 107 mmol/L 07/16/2025 6:01 AM EDT [facility] CO2, Plasma 31(H) 22 - 29 mmol/L 07/16/2025 6:01 AM EDT [facility] Anion Gap 10 6 - 16 mmol/L 07/16/2025 6:01 AM EDT [facility] Total Calcium, Plasma 8.6(L) 8.9 - 10.2 mg/dL 07/16/2025 6:01 AM EDT [facility] eGFRcr 116.3 mL/min/1.7 3m*2 07/16/2025 6:01 AM EDT [facility] Comment:Reported eGFRcr in m L/min/1.73m2 is based the CKD-EPI 2020 equation that does not use a race coefficient. Blood Venous blood specimen / Unknown Venipuncture / Unknown 07/16/2025 5:25 AM EDT 07/16/2025 5:33 AM EDT us Anne Franco MD LAB BLOOD ORDERABLES Sarah bennett Result [facility] [address] [place] [address] * (ABNORMAL) CBC W/O Differential (07/16/2025 5:25 AM EDT) WBC Count 22.22(H) 3.70 - 10.30 10*3/uL LAB HEMATOLOGY METHOD 07/16/2025 5:41 AM EDT [facility] RBC Count 3.30(L) 3.90 - 5.20 10*6/uL LAB HEMATOLOGY METHOD 07/16/2025 5:41 AM EDT [facility] HGB 8.9(L) 11.2 - 15.7 g/dL LAB HEMATOLOGY METHOD 07/16/2025 5:41 AM EDT [facility] HCT 28.9(L) 34.0 - 45.0 % LAB HEMATOLOGY METHOD 07/16/2025 5:41 AM EDT [facility] Platelet Count 376(H) 155 - 369 10*3/uL LAB HEMATOLOGY METHOD 07/16/2025 5:41 AM EDT [facility] MCV 88 79 - 98 fL LAB HEMATOLOGY METHOD 07/16/2025 5:41 AM EDT [facility] MCH 27.0 26.0 - 32.0 pg LAB HEMATOLOGY METHOD 07/16/2025 5:41 AM EDT [facility] MCHC 30.8 30.7 - 35.5 g/dL LAB HEMATOLOGY METHOD 07/16/2025 5:41 AM EDT [facility] RDW 17.2(H) 11.5 - 14.5 % LAB HEMATOLOGY METHOD 07/16/2025 5:41 AM EDT [facility] MPV 10.3 8.8 - 12.5 fL LAB HEMATOLOGY METHOD 07/16/2025 5:41 AM EDT [facility] nRBC 0.1(H) <=0.0 per 100 WBCs LAB HEMATOLOGY METHOD 07/16/2025 5:41 AM EDT [facility] Blood Venous blood specimen / Unknown Venipuncture / Unknown 07/16/2025 5:25 AM EDT 07/16/2025 5:33 AM EDT us Anne Franco MD LAB BLOOD ORDERABLES Sarah bennett Result [facility] [address] [place] [address] * (ABNORMAL) POCT glucose meter (07/15/2025 9:38 [...] Comment 07/15/2025 9:39 PM EDT [facility] School Nurse ID Yessenia Ramirez 9:39 PM EDT [facility] Device ID [id number] 07/15/2025 9:39 PM EDT [facility] Specimen Type POC Capillary 07/15/2025 9:39 PM EDT [facility] Blood Capillary blood specimen / Unknown 07/15/2025 9:38 PM EDT 07/15/2025 9:39 PM EDT us Anne Franco MD LAB POINT OF CARE TEST DOCKED DEVICE UNSOLICITED RESULTS Final Result [facility] [address] [place] [address] * (ABNORMAL) POCT glucose meter (07/15/2025 6:03 PM EDT) [facility] POCT Glucose 234(H) 74 - 99 mg/dL [...] Comment 07/15/2025 6:04 PM EDT [facility] School Nurse ID BrennanVenessa 07/15/2025 6:04 PM EDT [facility]ALTH[facility] Device ID [id number] 07/15/2025 6:04 PM EDT [facility]ALTH[facility]ARE [facility] Specimen Type POC Capillary 07/15/2025 6:04 PM EDT [facility] Blood Capillary blood specimen / Unknown 07/15/2025 6:03 PM EDT 07/15/2025 6:04 PM EDT Anne Franco MD LAB POINT OF CARE TEST DOCKED DEVICE UNSOLICITED RESULTS Final Result Performing Organization Address City/[facility]/ZIP Co de Phone Number [facility] [address] [place] [address] * (ABNORMAL) POCT glucose meter (07/15/2025 12:38 PM EDT) [facility] POCT Glucose 153(H) 74 - 99 mg/dL [...] 07/15/2025 12:40 PM EDT [facility] School Nurse ID Venessa Amin 07/15/2025 12:40 PM EDT [facility]ALTH[facility] Device ID [id number] 07/15/2025 12:40 PM EDT [facility] Specimen Type POC Capillary 07/15/2025 12:40 PM EDT [facility] Blood Capillary blood specimen / Unknown 07/15/2025 12:38 PM EDT 07/15/2025 12:40 PM EDT us Anne Franco MD LAB POINT OF CARE TEST DOCKED DEVICE UNSOLICITED RESULTS Final Result Performing Organization Address City/[facility] Co de Phone Number [facility] [address] [place] [address] * (ABNORMAL) POCT glucose meter (07/15/2025 8:38 AM EDT) [facility] POCT Glucose 132(H) 74 - 99 mg/dL [...] 07/15/2025 8:39 AM EDT [facility] School Nurse ID Venessa Amin 07/15/2025 8:39 AM EDT [facility] Device ID [id number] 07/15/2025 8:39 AM EDT [facility] Specimen Type POC Capillary 07/15/2025 8:39 AM EDT [facility]ALTH[facility] Blood Capillary blood specimen / Unknown 07/15/2025 8:38 AM EDT 07/15/2025 8:39 AM EDT us Anne Franco MD LAB POINT OF CARE TEST DOCKED DEVICE UNSOLICITED RESULTS Final Result Performing Organization Address City/[facility] Co de Phone Number [facility] [address] [place] [address] * (ABNORMAL) Phosphorus (07/15/2025 4:50 AM EDT) Pathologist [facility] Phosphorus, Plasma 2.3(L) 2.5 - 4.5 mg/dL 07/15/2025 7:33 AM EDT [facility] Blood Venous blood specimen / Unknown Venipuncture / Unknown 07/15/2025 4:50 AM EDT 07/15/2025 4:59 AM EDT Anne Franco MD LAB BLOOD ORDERABLES Sarah l Result Performing Organization Address City/[facility]/ZIP Co de Phone Number [facility] [address] [place] [address] * Magnesium (07/15/2025 4:50 AM EDT) Magnesium, Plasma 1.9 1.9 - 2.4 mg/dL 07/15/2025 7:33 AM EDT [facility] Blood Venous blood specimen / Unknown Venipuncture / Unknown 07/15/2025 4:50 AM EDT 07/15/2025 4:59 AM EDT Anne Franco MD LAB BLOOD ORDERABLES Sarah l Result [facility] [address] [place] [address] * (ABNORMAL) Basic metabolic panel (07/15/2025 4:50 AM EDT) Glucose, Plasma 150(H) 74 - 99 mg/dL 07/15/2025 5:31 AM EDT [facility] BUN, Plasma 11 7 - 21 mg/dL 07/15/2025 5:31 AM EDT [facility] Creatinine, Plasma 0.54(L) 0.60 - 1.10 mg/dL 07/15/2025 5:31 AM EDT [facility] BUN/Creatinine Ratio 20 07/15/2025 5:31 AM EDT [facility] Sodium, Plasma 136 136 - 145 mmol/L 07/15/2025 5:31 AM EDT [facility] Potassium, Plasma 4.1 3.6 - 4.9 mmol/L 07/15/2025 5:31 AM EDT [facility] Chloride, Plasma 95(L) 97 - 107 mmol/L 07/15/2025 5:31 AM EDT [facility] CO2, Plasma 32(H) 22 - 29 mmol/L 07/15/2025 5:31 AM EDT [facility] Anion Gap 9 6 - 16 mmol/L 07/15/2025 5:31 AM EDT [facility] Total Calcium, Plasma 8.8(L) 8.9 - 10.2 mg/dL 07/15/2025 5:31 AM EDT [facility] eGFRcr 113.0 mL/min/1.7 3m*2 07/15/2025 5:31 AM EDT [facility] Comment:Reported eGFRcr in m L/min/1.73m2 is based the CKD-EPI 2020 equation that does not use a race coefficient. Blood Venous blood specimen / Unknown Venipuncture / Unknown 07/15/2025 4:50 AM EDT 07/15/2025 4:59 AM EDT Anne Franco MD LAB BLOOD ORDERABLES Sarah bennett Result [facility] [address] [place] [address] * (ABNORMAL) POCT glucose meter (07/14/2025 7:57 [...] Comment 07/14/2025 7:58 PM EDT [facility] School Nurse ID Bernard Chirinos 07/14/20 7:58 PM EDT [facility] Device ID [id number] 07/14/2025 7:58 PM EDT [facility] Specimen Type POC Capillary 07/14/2025 7:58 PM EDT [facility] Blood Capillary blood specimen / Unknown 07/14/2025 7:57 PM EDT 07/14/2025 7:58 PM EDT Anne Franco MD LAB POINT OF CARE TEST DOCKED DEVICE UNSOLICITED RESULTS Final Result Performing Organization Address City/[facility] Co de Phone Number [facility] [address] [place] [address] * (ABNORMAL) POCT glucose meter (07/14/2025 4:56 [...] Comment 07/14/2025 4:58 PM EDT [facility] School Nurse ID Riana Higgins 07/14/2025 4:58 PM EDT [facility] Device ID [id number] 07/14/2025 4:58 PM EDT [facility] Specimen Type POC Capillary 07/14/2025 4:58 PM EDT [facility] Blood Capillary blood specimen / Unknown 07/14/2025 4:56 PM EDT 07/14/2025 4:58 PM EDT Anne Franco MD LAB POINT OF CARE TEST DOCKED DEVICE UNSOLICITED RESULTS Final Result Performing Organization Address City/[facility]/ZIP Co de Phone Number [facility] [address] [place] [address] * (ABNORMAL) POCT glucose meter (07/14/2025 12:38 [...] Comment 07/14/2025 12:39 PM EDT [facility] School Nurse ID Laura Baez 025 12:39 PM EDT [facility] Device ID [id number] 07/14/2025 12:39 PM EDT [facility] Specimen Type POC Capillary 07/14/2025 12:39 PM EDT [facility] Blood Capillary blood specimen / Unknown 07/14/2025 12:38 PM EDT 07/14/2025 12:39 PM EDT us Anne Franco MD LAB POINT OF CARE TEST DOCKED DEVICE UNSOLICITED RESULTS Final Result [facility] [address] [place] [address] * (ABNORMAL) Basic metabolic panel (07/14/2025 9:36 AM EDT) Glucose, Plasma 191(H) 74 - 99 mg/dL 07/14/2025 10:15 AM EDT [facility] BUN, Plasma 16 7 - 21 mg/dL 07/14/2025 10:15 AM EDT [facility] Creatinine, Plasma 0.61 0.60 - 1.10 mg/dL 07/14/2025 10:15 AM EDT [facility] BUN/Creatinine Ratio 26 07/14/2025 10:15 AM EDT [facility] Sodium, Plasma 138 136 - 145 mmol/L 07/14/2025 10:15 AM EDT [facility] Potassium, Plasma 3.2(L) 3.6 - 4.9 mmol/L 07/14/2025 10:15 AM EDT [facility] Chloride, Plasma 96(L) 97 - 107 mmol/L 07/14/2025 10:15 AM EDT [facility] CO2, Plasma 33(H) 22 - 29 mmol/L 07/14/2025 10:15 AM EDT [facility] Anion Gap 9 6 - 16 mmol/L 07/14/2025 10:15 AM EDT [facility] Total Calcium, Plasma 8.7(L) 8.9 - 10.2 mg/dL 07/14/2025 10:15 AM EDT [facility] eGFRcr 109.8 mL/min/1.7 3m*2 07/14/2025 10:15 AM EDT [facility] Comment:Reported eGFRcr in m L/min/1.73m2 is based the CKD-EPI 2020 equation that does not use a race coefficient. Blood Venous blood specimen / Unknown Venipuncture / Unknown 07/14/2025 9:36 AM EDT 07/14/2025 9:44 AM EDT us Anne Franco MD LAB BLOOD ORDERABLES Sarah l Result Performing Organization Address City/[facility] Co de Phone Number [facility] [address] [place] [address] * (ABNORMAL) Magnesium, Plasma (07/14/2025 9:36 AM EDT) Magnesium, Plasma 1.7(L) 1.9 - 2.4 mg/dL 07/14/2025 10:15 AM EDT [facility] Blood Venous blood specimen / Unknown Venipuncture / Unknown 07/14/2025 9:36 AM EDT 07/14/2025 9:44 AM EDT us Anne Franco MD LAB BLOOD ORDERABLES Sarah l Result [facility] [address] [place] [address] * (ABNORMAL) Phosphorus, Plasma (07/14/2025 9:36 AM EDT) Phosphorus, Plasma 2.2(L) 2.5 - 4.5 mg/dL 07/14/2025 10:15 AM EDT [facility] Blood Venous blood specimen / Unknown Venipuncture / Unknown 07/14/2025 9:36 AM EDT 07/14/2025 9:44 AM EDT us Anne Franco MD LAB BLOOD ORDERABLES Sarah sabrina Result [facility] [address] [place] [address] * (ABNORMAL) CBC W/O Differential (07/14/2025 9:36 AM EDT) WBC Count 21.20(H) 3.70 - 10.30 10*3/uL LAB HEMATOLOGY METHOD 07/14/2025 9:52 AM EDT [facility] RBC Count 3.37(L) 3.90 - 5.20 10*6/uL LAB HEMATOLOGY METHOD 07/14/2025 9:52 AM EDT [facility] HGB 9.2(L) 11.2 - 15.7 g/dL LAB HEMATOLOGY METHOD 07/14/2025 9:52 AM EDT [facility] HCT 29.4(L) 34.0 - 45.0 % LAB HEMATOLOGY METHOD 07/14/2025 9:52 AM EDT [facility] Platelet Count 314 155 - 369 10*3/uL LAB HEMATOLOGY METHOD 07/14/2025 9:52 AM EDT [facility] MCV 87 79 - 98 fL LAB HEMATOLOGY METHOD 07/14/2025 9:52 AM EDT [facility] MCH 27.3 26.0 - 32.0 pg LAB HEMATOLOGY METHOD 07/14/2025 9:52 AM EDT [facility] MCHC 31.3 30.7 - 35.5 g/dL LAB HEMATOLOGY METHOD 07/14/2025 9:52 AM EDT [facility] RDW 17.2(H) 11.5 - 14.5 % LAB HEMATOLOGY METHOD 07/14/2025 9:52 AM EDT [facility] MPV 10.2 8.8 - 12.5 fL LAB HEMATOLOGY METHOD 07/14/2025 9:52 AM EDT [facility] nRBC 0.1(H) <=0.0 per 100 WBCs LAB HEMATOLOGY METHOD 07/14/2025 9:52 AM EDT [facility] Blood Venous blood specimen / Unknown Venipuncture / Unknown 07/14/2025 9:36 AM EDT 07/14/2025 9:44 AM EDT us Anne Franco MD LAB BLOOD ORDERABLES Sarah l Result Performing Organization Address City/[facility] Co de Phone Number [facility] [address] [place] [address] * (ABNORMAL) POCT glucose meter (07/14/2025 8:39 [...] for testing. Comment 07/14/2025 8:41 AM EDT [facility] School Nurse ID Laura Baez 025 8:41 AM EDT [facility] Device ID [id number] 07/14/2025 8:41 AM EDT [facility] Specimen Type POC Capillary 07/14/2025 8:41 AM EDT [facility] Blood Capillary blood specimen / Unknown 07/14/2025 8:39 AM EDT 07/14/2025 8:41 AM EDT us Anne Franco MD LAB POINT OF CARE TEST DOCKED DEVICE UNSOLICITED RESULTS Final Result Performing Organization Address City/[facility] Co de Phone Number [facility] [address] [place] [address] * (ABNORMAL) POCT glucose meter (07/14/2025 6:18 [...] Comment 07/14/2025 6:20 AM EDT [facility] School Nurse ID Rita Alejandro 6:20 AM EDT [facility] Device ID [id number] 07/14/2025 6:20 AM EDT [facility] Specimen Type POC Capillary 07/14/2025 6:20 AM EDT [facility] Blood Capillary blood specimen / Unknown 07/14/2025 6:18 AM EDT 07/14/2025 6:20 AM EDT us Anne Franco MD LAB POINT OF CARE TEST DOCKED DEVICE UNSOLICITED RESULTS Final Result Performing Organization Address City/[facility]/ZIP Co de Phone Number [facility] [address] [place] [address] * (ABNORMAL) POCT glucose meter (07/13/2025 9:18 PM EDT) [facility] POCT Glucose 196(H) 74 - 99 mg/dL [...] for testing. Comment 07/13/2025 9:19 PM EDT [facility] School Nurse ID Yenny Tong 025 9:19 PM EDT [facility] Device ID [id number] 07/13/2025 9:19 PM EDT [facility] Specimen Type POC Capillary 07/13/2025 9:19 PM EDT [facility] Blood Capillary blood specimen / Unknown 07/13/2025 9:18 PM EDT 07/13/2025 9:19 PM EDT us Anne Franco MD LAB POINT OF CARE TEST DOCKED DEVICE UNSOLICITED RESULTS Final Result [facility] [address] [place] [address] * (ABNORMAL) POCT glucose meter (07/13/2025 6:01 PM EDT) [facility] POCT Glucose 128(H) 74 - 99 mg/dL [...] 07/13/2025 6:02 PM EDT [facility] School Nurse ID BaezLaura latham 025 6:02 PM EDT [facility] Device ID [id number] 07/13/2025 6:02 PM EDT [facility] Specimen Type POC Capillary 07/13/2025 6:02 PM EDT [facility] Blood Capillary blood specimen / Unknown 07/13/2025 6:01 PM EDT 07/13/2025 6:02 PM EDT Anne Franco MD LAB POINT OF CARE TEST DOCKED DEVICE UNSOLICITED RESULTS Final Result [facility] [address] [place] [address] * (ABNORMAL) POCT glucose meter (07/13/2025 12:12 PM EDT) [facility] POCT Glucose 139(H) 74 - 99 mg/dL [...] 07/13/2025 12:14 PM EDT [facility] School Nurse ID BaezLaura latham 025 12:14 PM EDT [facility] Device ID [id number] 07/13/2025 12:14 PM EDT [facility] Specimen Type POC Capillary 07/13/2025 12:14 PM EDT [facility] Blood Capillary blood specimen / Unknown 07/13/2025 12:12 PM EDT 07/13/2025 12:14 PM EDT Anne Franco MD LAB POINT OF CARE TEST DOCKED DEVICE UNSOLICITED RESULTS Final Result [facility] [address] [place] [address] * (ABNORMAL) Phosphorus (07/13/2025 10:21 AM EDT) [facility] Phosphorus, Plasma 2.2(L) 2.5 - 4.5 mg/dL 07/13/2025 11:23 AM EDT [facility] Blood Venous blood specimen / Unknown Venipuncture / Unknown 07/13/2025 10:21 AM EDT 07/13/2025 10:31 AM EDT Luanne Crawford MD LAB BLOOD ORDERABLES Final Result Performing Organization Address [facility]/[place] [address] * (ABNORMAL) Magnesium, Plasma (07/13/2025 10:21 AM EDT) [facility] Magnesium, Plasma 1.7(L) 1.9 - 2.4 mg/dL 07/13/2025 11:23 AM EDT [facility] Blood Venous blood specimen / Unknown Venipuncture / Unknown 07/13/2025 10:21 AM EDT 07/13/2025 10:31 AM EDT Luanne Crawford MD LAB BLOOD ORDERABLES Final Result Performing Organization Address City/[facility]/ZIP Co de Phone Number [facility] [address] [place] [address] * (ABNORMAL) Basic Metabolic Panel, Plasma (07/13/2025 10:21 AM EDT) Glucose, Plasma 135(H) 74 - 99 mg/dL 07/13/2025 11:23 AM EDT [facility] BUN, Plasma 22(H) 7 - 21 mg/dL 07/13/2025 11:23 AM EDT [facility] Creatinine, Plasma 0.62 0.60 - 1.10 mg/dL 07/13/2025 11:23 AM EDT [facility] BUN/Creatinine Ratio 35 07/13/2025 11:23 AM EDT [facility] Sodium, Plasma 138 136 - 145 mmol/L 07/13/2025 11:23 AM EDT [facility] Potassium, Plasma 3.7 3.6 - 4.9 mmol/L 07/13/2025 11:23 AM EDT [facility] Chloride, Plasma 95(L) 97 - 107 mmol/L 07/13/2025 11:23 AM EDT [facility] CO2, Plasma 30(H) 22 - 29 mmol/L 07/13/2025 11:23 AM EDT [facility] Anion Gap 13 6 - 16 mmol/L 07/13/2025 11:23 AM EDT [facility] Total Calcium, Plasma 9.0 8.9 - 10.2 mg/dL 07/13/2025 11:23 AM EDT [facility] eGFRcr 109.3 mL/min/1.7 3m*2 07/13/2025 11:23 AM EDT [facility] Comment:Reported eGFRcr in m L/min/1.73m2 is based the CKD-EPI 2020 equation that does not use a race coefficient. Blood Venous blood specimen / Unknown Venipuncture / Unknown 07/13/2025 10:21 AM EDT 07/13/2025 10:31 AM EDT us Luanne Crawford MD LAB BLOOD ORDERABLES Final Result [facility] [address] [place] [address] * (ABNORMAL) CBC W/O Differential (07/13/2025 10:21 AM EDT) WBC Count 19.56(H) 3.70 - 10.30 10*3/uL LAB HEMATOLOGY METHOD 07/13/2025 10:59 AM EDT [facility] RBC Count 3.67(L) 3.90 - 5.20 10*6/uL LAB HEMATOLOGY METHOD 07/13/2025 10:59 AM EDT [facility] HGB 10.2(L) 11.2 - 15.7 g/dL LAB HEMATOLOGY METHOD 07/13/2025 10:59 AM EDT [facility] HCT 32.3(L) 34.0 - 45.0 % LAB HEMATOLOGY METHOD 07/13/2025 10:59 AM EDT [facility] Platelet Count 296 155 - 369 10*3/uL LAB HEMATOLOGY METHOD 07/13/2025 10:59 AM EDT [facility] MCV 88 79 - 98 fL LAB HEMATOLOGY METHOD 07/13/2025 10:59 AM EDT [facility] MCH 27.8 26.0 - 32.0 pg LAB HEMATOLOGY METHOD 07/13/2025 10:59 AM EDT [facility] MCHC 31.6 30.7 - 35.5 g/dL LAB HEMATOLOGY METHOD 07/13/2025 10:59 AM EDT [facility] RDW 17.6(H) 11.5 - 14.5 % LAB HEMATOLOGY METHOD 07/13/2025 10:59 AM EDT [facility] MPV 10.3 8.8 - 12.5 fL LAB HEMATOLOGY METHOD 07/13/2025 10:59 AM EDT [facility] nRBC 0.0 <=0.0 per 100 WBCs LAB HEMATOLOGY METHOD 07/13/2025 10:59 AM EDT [facility] Blood Venous blood specimen / Unknown Venipuncture / Unknown 07/13/2025 10:21 AM EDT 07/13/2025 10:31 AM EDT us Luanne Crawford MD LAB BLOOD ORDERABLES Final Result [facility] [address] [place] [address] * (ABNORMAL) POCT glucose meter (07/13/2025 8:50 AM EDT) [facility] POCT Glucose 102(H) 74 - 99 mg/dL [...] Comment 07/13/2025 8:53 AM EDT [facility] School Nurse ID Laura Baez 025 8:53 AM EDT [facility] Device ID [id number] 07/13/2025 8:53 AM EDT [facility] Specimen Type POC Capillary 07/13/2025 8:53 AM EDT [facility] Blood Capillary blood specimen / Unknown 07/13/2025 8:50 AM EDT 07/13/2025 8:53 AM EDT Anne Franco MD LAB POINT OF CARE TEST DOCKED DEVICE UNSOLICITED RESULTS Final Result [facility] [address] [place] [address] * (ABNORMAL) POCT glucose meter (07/13/2025 6:11 AM EDT) [facility] POCT Glucose 111(H) 74 - 99 mg/dL [...] 07/13/2025 6:13 AM EDT [facility] School Nurse ID Rita Alejandro 6:13 AM EDT [facility] Device ID [id number] 07/13/2025 6:13 AM EDT [facility] Specimen Type POC Capillary 07/13/2025 6:13 AM EDT [facility] Blood Capillary blood specimen / Unknown 07/13/2025 6:11 AM EDT 07/13/2025 6:13 AM EDT Anne Franco MD LAB POINT OF CARE TEST DOCKED DEVICE UNSOLICITED RESULTS Final Result Performing Organization Address [facility] Co de Phone Number [facility] [address] [place] [address] * (ABNORMAL) POCT glucose meter (07/12/2025 9:28 [...] Comment 07/12/2025 9:30 PM EDT [facility] School Nurse ID Yenny Tong 025 9:30 PM EDT [facility] Device ID [id number] 07/12/2025 9:30 PM EDT [facility] Specimen Type POC Capillary 07/12/2025 9:30 PM EDT [facility] Blood Capillary blood specimen / Unknown 07/12/2025 9:28 PM EDT 07/12/2025 9:30 PM EDT Anne Franco MD LAB POINT OF CARE TEST DOCKED DEVICE UNSOLICITED RESULTS Final Result Performing Organization Address City/[facility]/ZIP Co de Phone Number [facility] [address] [place] [address] * (ABNORMAL) POCT glucose meter (07/12/2025 6:04 [...] Comment 07/12/2025 6:06 PM EDT [facility] School Nurse ID Jeana Bear 07/12/2025 6:06 PM EDT [facility] Device ID [id number] 07/12/2025 6:06 PM EDT [facility] Specimen Type POC Capillary 07/12/2025 6:06 PM EDT [facility] Blood Capillary blood specimen / Unknown 07/12/2025 6:04 PM EDT 07/12/2025 6:06 PM EDT Anne Franco MD LAB POINT OF CARE TEST DOCKED DEVICE UNSOLICITED RESULTS Final Result Performing Organization Address City/State/[facility] de Phone Number [facility] [address] [place] [address] * PERIPHERAL IV (SMART[employer] LINK) (07/12/2025 3:51 [...] Comment 07/12/2025 11:56 AM EDT [facility] School Nurse ID Jeana Bear 07/12/2025 11:56 AM EDT [facility] Device ID [id number] 07/12/2025 11:56 AM EDT [facility] Specimen Type POC Capillary 07/12/2025 11:56 AM EDT [facility] Blood Capillary blood specimen / Unknown 07/12/2025 11:55 AM EDT 07/12/2025 11:56 AM EDT Dorcas Hennessy MD LAB POINT OF CARE TE ST DOCKED DEVICE UNSOLICITED RESULTS Final Result [facility] [address] [place] [address] * XR Chest 1 View (07/12/2025 11:11 [...] POCT glucose meter (07/12/2025 8:41 AM EDT) Pathologist [facility] POCT Glucose 128(H) 74 - 99 mg/dL [...] Comment 07/12/2025 8:42 AM EDT [facility] School Nurse ID Jeana Bear 07/12/2025 8:42 AM EDT [facility] Device ID [id number] 07/12/2025 8:42 AM EDT [facility] Specimen Type POC Capillary 07/12/2025 8:42 AM EDT [facility] Blood Capillary blood specimen / Unknown 07/12/2025 8:41 AM EDT 07/12/2025 8:42 AM EDT Dorcas Hennessy MD LAB POINT OF CARE TE ST DOCKED DEVICE UNSOLICITED RESULTS Final Result [facility] [address] [place] [address] * Phosphorus (07/12/2025 12:25 AM EDT) Phosphorus, Plasma 2.9 2.5 - 4.5 mg/dL 07/12/2025 1:22 AM EDT [facility] Blood Venous blood specimen / Unknown Venipuncture / Unknown 07/12/2025 12:25 AM EDT 07/12/2025 12:52 AM EDT Luanne Crawford MD LAB BLOOD ORDERABLES Final Result Performing Organization Address [facility]/ZIP Co de Phone Number [facility] [address] [place] [address] * Magnesium, Plasma (07/12/2025 12:25 AM EDT) Magnesium, Plasma 2.0 1.9 - 2.4 mg/dL 07/12/2025 1:22 AM EDT [facility] Blood Venous blood specimen / Unknown Venipuncture / Unknown 07/12/2025 12:25 AM EDT 07/12/2025 12:52 AM EDT Luanne Crawford MD LAB BLOOD ORDERABLES Final Result Performing Organization Address City/[facility]/ZIP Co de Phone Number [facility] [address] [place] [address] * (ABNORMAL) Basic Metabolic Panel, Plasma (07/12/2025 12:25 AM EDT) Glucose, Plasma 92 74 - 99 mg/dL 07/12/2025 1:22 AM EDT [facility] BUN, Plasma 18 7 - 21 mg/dL 07/12/2025 1:22 AM EDT [facility] Creatinine, Plasma 0.84 0.60 - 1.10 mg/dL 07/12/2025 1:22 AM EDT [facility] BUN/Creatinine Ratio 21 07/12/2025 1:22 AM EDT [facility] Sodium, Plasma 142 136 - 145 mmol/L 07/12/2025 1:22 AM EDT [facility] Potassium, Plasma 3.6 3.6 - 4.9 mmol/L 07/12/2025 1:22 AM EDT [facility] Chloride, Plasma 103 97 - 107 mmol/L 07/12/2025 1:22 AM EDT [facility] CO2, Plasma 31(H) 22 - 29 mmol/L 07/12/2025 1:22 AM EDT [facility] Anion Gap 8 6 - 16 mmol/L 07/12/2025 1:22 AM EDT [facility] Total Calcium, Plasma 8.8(L) 8.9 - 10.2 mg/dL 07/12/2025 1:22 AM EDT [facility] eGFRcr 85.3 mL/min/1.7 3m*2 07/12/2025 1:22 AM EDT [facility] Comment:Reported eGFRcr in m L/min/1.73m2 is based the CKD-EPI 2020 equation that does not use a race coefficient. Blood Venous blood specimen / Unknown Venipuncture / Unknown 07/12/2025 12:25 AM EDT 07/12/2025 12:52 AM EDT us Luanne Crawford MD LAB BLOOD ORDERABLES Final Result [facility] [address] [place] [address] * (ABNORMAL) CBC W/O Differential (07/12/2025 12:25 AM EDT) WBC Count 15.81(H) 3.70 - 10.30 10*3/uL LAB HEMATOLOGY METHOD 07/12/2025 1:05 AM EDT [facility] RBC Count 3.39(L) 3.90 - 5.20 10*6/uL LAB HEMATOLOGY METHOD 07/12/2025 1:05 AM EDT [facility] HGB 9.3(L) 11.2 - 15.7 g/dL LAB HEMATOLOGY METHOD 07/12/2025 1:05 AM EDT [facility] HCT 29.8(L) 34.0 - 45.0 % LAB HEMATOLOGY METHOD 07/12/2025 1:05 AM EDT [facility] Platelet Count 276 155 - 369 10*3/uL LAB HEMATOLOGY METHOD 07/12/2025 1:05 AM EDT [facility] MCV 88 79 - 98 fL LAB HEMATOLOGY METHOD 07/12/2025 1:05 AM EDT [facility] MCH 27.4 26.0 - 32.0 pg LAB HEMATOLOGY METHOD 07/12/2025 1:05 AM EDT [facility] MCHC 31.2 30.7 - 35.5 g/dL LAB HEMATOLOGY METHOD 07/12/2025 1:05 AM EDT [facility] RDW 18.0(H) 11.5 - 14.5 % LAB HEMATOLOGY METHOD 07/12/2025 1:05 AM EDT [facility] MPV 10.5 8.8 - 12.5 fL LAB HEMATOLOGY METHOD 07/12/2025 1:05 AM EDT [facility] nRBC 0.0 <=0.0 per 100 WBCs LAB HEMATOLOGY METHOD 07/12/2025 1:05 AM EDT [facility] Blood Venous blood specimen / Unknown Venipuncture / Unknown 07/12/2025 12:25 AM EDT 07/12/2025 12:55 AM EDT us Luanne Crawford MD LAB BLOOD ORDERABLES Final Result Performing Organization Address City/[facility]/ZIP Co de Phone Number [facility] [address] [place] [address] * (ABNORMAL) POCT Glucose (if patient NPO, on TPN or continuous nutrition) (07/11/2025 8:45 PM EDT) [facility] POCT Glucose 119(A) 74 - 99 mg/dL [facility] Test Strip Lot Number \[id number]\ [facility] Test Strip Expiration 09/24/2026 [facility] Blood Venous blood specimen / Unknown 07/11/2025 8:45 PM EDT us Dorcas Hennessy MD POINT OF CARE TEST ENTER/EDIT OR DERABLES Final Result Performing Organization Address City/[facility] Co de Phone Number [facility] [address] [place] [address] * (ABNORMAL) POCT Glucose - Before Meals and Bedtime (07/11/2025 8:43 PM EDT) POCT Glucose 119(A) 74 - 99 mg/dL [facility] Test Strip Lot Number [id number] [facility] Test Strip Expiration 09/24/2026 [facility] Blood Venous blood specimen / Unknown 07/11/2025 8:43 PM EDT Dorcas Hennessy MD POINT OF CARE TEST ENTER/EDIT OR DERABLES Final Result Performing Organization Address City/[facility]/ZIP Co de Phone Number [facility] [address] [place] [address] * (ABNORMAL) POCT glucose meter (07/11/2025 8:42 [...] Comment 07/11/2025 8:43 PM EDT [facility] School Nurse ID Jf Cruz 07/11/2025 8:43 PM EDT [facility] Device ID [id number] 07/11/2025 8:43 PM EDT [facility] Specimen Type POC Capillary 07/11/2025 8:43 PM EDT [facility] Blood Capillary blood specimen / Unknown 07/11/2025 8:42 PM EDT 07/11/2025 8:43 PM EDT us Dorcas Hennessy MD LAB POINT OF CARE TE ST DOCKED DEVICE UNSOLICITED RESULTS Final Result [facility] [address] [place] [address] * (ABNORMAL) POCT glucose meter (07/11/2025 5:38 [...] Comment 07/11/2025 5:40 PM EDT [facility] School Nurse ID Ayana Amato 07/11/2025 5:40 PM EDT [facility] Device ID [id number] 07/11/2025 5:40 PM EDT [facility]ALTH[facility] Specimen Type POC Capillary 07/11/2025 5:40 PM EDT [facility] Blood Capillary blood specimen / Unknown 07/11/2025 5:38 PM EDT 07/11/2025 5:40 PM EDT us Dorcas Hennessy MD LAB POINT OF CARE TE ST DOCKED DEVICE UNSOLICITED RESULTS Final Result Performing Organization Address City/State/[facility] Co de Phone Number HEALTHCARE LAB [address] [place] [address] * (ABNORMAL) POCT glucose meter (07/11/2025 3:36 PM EDT) [facility] POCT Glucose 144(H) 74 - 99 mg/dL [...] 07/11/2025 3:38 PM EDT [facility] School Nurse ID Radha Frias 07/11/20 3:38 PM EDT [facility] Device ID [id number] 07/11/2025 3:38 PM EDT [facility] Specimen Type POC Venous 07/11/2025 3:38 PM EDT [facility] Blood Venous blood specimen / Unknown 07/11/2025 3:36 PM EDT 07/11/2025 3:38 PM EDT us Dorcas Hennessy MD LAB POINT OF CARE TE ST DOCKED DEVICE UNSOLICITED RESULTS Final Result [facility] [address] [place] [address] * (ABNORMAL) POCT glucose meter (07/11/2025 1:52 PM EDT) [facility] POCT Glucose 140(H) 74 - 99 mg/dL [...] Comment 07/11/2025 1:54 PM EDT [facility]ALTH[facility] School Nurse ID Ayana Amato 07/11/2025 1:54 PM EDT [facility] Device ID [id number] 07/11/2025 1:54 PM EDT [facility]ALTH[facility] Specimen Type POC Capillary 07/11/2025 1:54 PM EDT [facility] Blood Capillary blood specimen / Unknown 07/11/2025 1:52 PM EDT 07/11/2025 1:54 PM EDT Dorcas Hennessy MD LAB POINT OF CARE TE ST DOCKED DEVICE UNSOLICITED RESULTS Final Result [facility] [address] [place] [address] * (ABNORMAL) POCT glucose meter (07/11/2025 12:12 PM EDT) [facility] POCT Glucose 154(H) 74 - 99 mg/dL [...] 07/11/2025 12:13 PM EDT [facility] School Nurse ID Ayana Amato 07/11/2025 12:13 PM EDT [facility] Device ID [id number] 07/11/2025 12:13 PM EDT [facility] Specimen Type POC Capillary 07/11/2025 12:13 PM EDT [facility] Blood Capillary blood specimen / Unknown 07/11/2025 12:12 PM EDT 07/11/2025 12:13 PM EDT Luanne Crawford MD LAB POINT OF CARE TEST DOCKED DEVICE UNSOLICITED RESULTS Final Result Performing Organization Address City/[facility] Co de Phone Number [facility] [address] [place] [address] * (ABNORMAL) POCT glucose meter (07/11/2025 9:57 AM EDT) [facility] POCT Glucose 135(H) 74 - 99 mg/dL [...] 07/11/2025 9:59 AM EDT [facility] School Nurse ID Ayana Amato 07/11/2025 9:59 AM EDT [facility] Device ID [id number] 07/11/2025 9:59 AM EDT [facility] Specimen Type POC Capillary 07/11/2025 9:59 AM EDT [facility] Blood Capillary blood specimen / Unknown 07/11/2025 9:57 AM EDT 07/11/2025 9:59 AM EDT us Luanne Crawford MD LAB POINT OF CARE TEST DOCKED DEVICE UNSOLICITED RESULTS Final Result Performing Organization Address City/[facility] Co de Phone Number [facility] [address] [place] [address] * [place] [facility], E/M 30-74 MINUTES (07/11/2025 8:41 [...] POCT glucose meter (07/11/2025 8:13 AM EDT) [facility] POCT Glucose 140(H) 74 - 99 mg/dL 07/11/2025 8:15 AM EDT [facility] Comment:Accuracy of a glucos e result [...] 07/11/2025 8:15 AM EDT [facility] School Nurse ID Ayana Amato 07/11/2025 8:15 AM EDT HEALTHC[facility] LAB Device ID [id number] 07/11/2025 8:15 AM EDT [facility]ALTH[facility] Specimen Type POC Capillary 07/11/2025 8:15 AM EDT [facility] Blood Capillary blood specimen / Unknown 07/11/2025 8:13 AM EDT 07/11/2025 8:15 AM EDT Luanne Crawford MD LAB POINT OF CARE TEST DOCKED DEVICE UNSOLICITED RESULTS Final Result Performing Organization Address City/[facility] Co de Phone Number [facility] [address] [place] [address] * (ABNORMAL) POCT glucose meter (07/11/2025 6:03 AM EDT) [facility] POCT Glucose 135(H) 74 - 99 mg/dL [...] Comment 07/11/2025 6:05 AM EDT [facility] School Nurse ID Cheyanne Briceño 07/11/2025 6:05 AM EDT [facility]ALTH[facility] Device ID [id number] 07/11/2025 6:05 AM EDT [facility] Specimen Type POC Capillary 07/11/2025 6:05 AM EDT [facility] Blood Capillary blood specimen / Unknown 07/11/2025 6:03 AM EDT 07/11/2025 6:05 AM EDT Luanne Crawford MD LAB POINT OF CARE TEST DOCKED DEVICE UNSOLICITED RESULTS Final Result Performing Organization Address City/[facility] Co de Phone Number [facility] [address] [place] [address] * (ABNORMAL) POCT glucose meter (07/11/2025 4:04 AM EDT) [facility] POCT Glucose 107(H) 74 - 99 mg/dL [...] Comment 07/11/2025 4:06 AM EDT [facility] School Nurse ID Cheyanne Briceño 07/11/2025 4:06 AM EDT [facility]ALTH[facility] Device ID [id number] 07/11/2025 4:06 AM EDT [facility]ALTH[facility] Specimen Type POC Capillary 07/11/2025 4:06 AM EDT [facility] Blood Capillary blood specimen / Unknown 07/11/2025 4:04 AM EDT 07/11/2025 4:06 AM EDT Luanne Crawford MD LAB POINT OF CARE TEST DOCKED DEVICE UNSOLICITED RESULTS Final Result [facility] [address] [place] [address] * (ABNORMAL) POCT glucose meter (07/11/2025 2:02 AM EDT) [facility] POCT Glucose 130(H) 74 - 99 mg/dL [...] Comment 07/11/2025 2:03 AM EDT [facility]ALTH[facility] School Nurse ID Cheyanne Briceño 07/11/2025 2:03 AM EDT [facility]ALTH[facility] Device ID [id number] 07/11/2025 2:03 AM EDT [facility] Specimen Type POC Capillary 07/11/2025 2:03 AM EDT [facility] Blood Capillary blood specimen / Unknown 07/11/2025 2:02 AM EDT 07/11/2025 2:03 AM EDT Luanne Crawford MD LAB POINT OF CARE TEST DOCKED DEVICE UNSOLICITED RESULTS Final Result Performing Organization Address [facility]/ZIP Co de Phone Number [facility] [address] [place] [address] * Phosphorus (07/11/2025 12:09 AM EDT) Phosphorus, Plasma 3.7 2.5 - 4.5 mg/dL 07/11/2025 12:54 AM EDT [facility] Blood Venous blood specimen / Unknown Venipuncture / Unknown 07/11/2025 12:09 AM EDT 07/11/2025 12:26 AM EDT Luanne Crawford MD LAB BLOOD ORDERABLES Final Result Performing Organization Address [facility] Co de Phone Number [facility] [address] [place] [address] * (ABNORMAL) Magnesium, Plasma (07/11/2025 12:09 AM EDT) Magnesium, Plasma 1.8(L) 1.9 - 2.4 mg/dL 07/11/2025 12:54 AM EDT [facility] Blood Venous blood specimen / Unknown Venipuncture / Unknown 07/11/2025 12:09 AM EDT 07/11/2025 12:26 AM EDT Luanne Crawford MD LAB BLOOD ORDERABLES Final Result Performing Organization Address City/[facility]/ZIP Co de Phone Number [facility] [address] [place] [address] * (ABNORMAL) Basic Metabolic Panel, Plasma (07/11/2025 12:09 AM EDT) Glucose, Plasma 163(H) 74 - 99 mg/dL 07/11/2025 12:54 AM EDT [facility] BUN, Plasma 20 7 - 21 mg/dL 07/11/2025 12:54 AM EDT [facility] Creatinine, Plasma 0.99 0.60 - 1.10 mg/dL 07/11/2025 12:54 AM EDT [facility] BUN/Creatinine Ratio 20 07/11/2025 12:54 AM EDT [facility] Sodium, Plasma 141 136 - 145 mmol/L 07/11/2025 12:54 AM EDT [facility] Potassium, Plasma 3.8 3.6 - 4.9 mmol/L 07/11/2025 12:54 AM EDT [facility] Chloride, Plasma 104 97 - 107 mmol/L 07/11/2025 12:54 AM EDT [facility] CO2, Plasma 27 22 - 29 mmol/L 07/11/2025 12:54 AM EDT [facility] Anion Gap 10 6 - 16 mmol/L 07/11/2025 12:54 AM EDT [facility] Total Calcium, Plasma 9.1 8.9 - 10.2 mg/dL 07/11/2025 12:54 AM EDT [facility] eGFRcr 70.0 mL/min/1.7 3m*2 07/11/2025 12:54 AM EDT [facility] Comment:Reported eGFRcr in m L/min/1.73m2 is based the CKD-EPI 2020 equation that does not use a race coefficient. Blood Venous blood specimen / Unknown Venipuncture / Unknown 07/11/2025 12:09 AM EDT 07/11/2025 12:26 AM EDT us Luanne Crawford MD LAB BLOOD ORDERABLES Final Result [facility] [address] [place] [address] * (ABNORMAL) CBC W/O Differential (07/11/2025 12:09 AM EDT) WBC Count 13.23(H) 3.70 - 10.30 10*3/uL LAB HEMATOLOGY METHOD 07/11/2025 12:36 AM EDT [facility] RBC Count 3.65(L) 3.90 - 5.20 10*6/uL LAB HEMATOLOGY METHOD 07/11/2025 12:36 AM EDT [facility] HGB 10.1(L) 11.2 - 15.7 g/dL LAB HEMATOLOGY METHOD 07/11/2025 12:36 AM EDT [facility] HCT 32.1(L) 34.0 - 45.0 % LAB HEMATOLOGY METHOD 07/11/2025 12:36 AM EDT [facility] Platelet Count 270 155 - 369 10*3/uL LAB HEMATOLOGY METHOD 07/11/2025 12:36 AM EDT [facility] MCV 88 79 - 98 fL LAB HEMATOLOGY METHOD 07/11/2025 12:36 AM EDT [facility] MCH 27.7 26.0 - 32.0 pg LAB HEMATOLOGY METHOD 07/11/2025 12:36 AM EDT [facility] MCHC 31.5 30.7 - 35.5 g/dL LAB HEMATOLOGY METHOD 07/11/2025 12:36 AM EDT [facility] RDW 17.9(H) 11.5 - 14.5 % LAB HEMATOLOGY METHOD 07/11/2025 12:36 AM EDT [facility] MPV 10.7 8.8 - 12.5 fL LAB HEMATOLOGY METHOD 07/11/2025 12:36 AM EDT [facility] nRBC 0.0 <=0.0 per 100 WBCs LAB HEMATOLOGY METHOD 07/11/2025 12:36 AM EDT [facility] Blood Venous blood specimen / Unknown Venipuncture / Unknown 07/11/2025 12:09 AM EDT 07/11/2025 12:29 AM EDT us Luanne Crawford MD LAB BLOOD ORDERABLES Final Result [facility] [address] [place] [address] * (ABNORMAL) POCT glucose meter (07/11/2025 12:04 AM EDT) [facility] POCT Glucose 156(H) 74 - 99 mg/dL [...] Comment 07/11/2025 12:06 AM EDT [facility] School Nurse ID Cheyanne Briceño 07/11/2025 12:06 AM EDT [facility]ALTH[facility] Device ID [id number] 07/11/2025 12:06 AM EDT [facility] Specimen Type POC Capillary 07/11/2025 12:06 AM EDT [facility] Blood Capillary blood specimen / Unknown 07/11/2025 12:04 AM EDT 07/11/2025 12:06 AM EDT us Luanne Crawford MD LAB POINT OF CARE TEST DOCKED DEVICE UNSOLICITED RESULTS Final Result Performing Organization Address City/[facility] Co dc Phone Number [facility]ARE [facility] [address] [place] [address] * (ABNORMAL) POCT glucose meter (07/10/2025 10:02 PM EDT) [facility] POCT Glucose 202(H) 74 - 99 mg/dL [...] Comment 07/10/2025 10:03 PM EDT [facility]ALTH[facility] School Nurse ID Lidia Ugalde 07/10/2025 10:03 PM EDT [facility]ALTH[facility] LAB Device ID [id number] 07/10/2025 10:03 PM EDT [facility] Specimen Type POC Capillary 07/10/2025 10:03 PM EDT [facility] Blood Capillary blood specimen / Unknown 07/10/2025 10:02 PM EDT 07/10/2025 10:03 PM EDT us Luanne Crawford MD LAB POINT OF CARE TEST DOCKED DEVICE UNSOLICITED RESULTS Final Result [facility] [address] [place] [address] * (ABNORMAL) Blood gas panel, arterial (07/10/2025 8:23 PM EDT) pH, Arterial 7.30(L) 7.35 - 7.45 LAB HEMATOLOGY METHOD 07/10/2025 8:40 PM EDT [facility] pCO2, Arterial 57(H) 35 - 48 mmHg LAB HEMATOLOGY METHOD 07/10/2025 8:40 PM EDT [facility] pO2, Arterial 80(L) 83 - 108 mmHg LAB HEMATOLOGY METHOD 07/10/2025 8:40 PM EDT [facility] SO2, Measured, Arterial 95 94 - 98 % LAB HEMATOLOGY METHOD 07/10/2025 8:40 PM EDT [facility] Base Excess, Arterial 1.1 -2.0 - 3.0 mmol/L LAB HEMATOLOGY METHOD 07/10/2025 8:40 PM EDT [facility] Bicarbonate, Calculated, Arterial 28(H) 22 - 26 mmol/L LAB HEMATOLOGY METHOD 07/10/2025 8:40 PM EDT [facility] Hematocrit, Whole Blood 31.5(L) 34.0 - 45.0 % LAB HEMATOLOGY METHOD 07/10/2025 8:40 PM EDT [facility] Sodium, Whole Blood 138 136 - 145 mmol/L LAB HEMATOLOGY METHOD 07/10/2025 8:40 PM EDT [facility] Potassium, Whole Blood 3.9 3.6 - 4.9 mmol/L LAB HEMATOLOGY METHOD 07/10/2025 8:40 PM EDT [facility] Chloride, Whole Blood 103 97 - 107 mmol/L LAB HEMATOLOGY METHOD 07/10/2025 8:40 PM EDT [facility] Glucose, Whole Blood 206(H) 74 - 99 mg/dL LAB HEMATOLOGY METHOD 07/10/2025 8:40 PM EDT [facility] Ionized Calcium, Whole Blood 5.0 4.6 - 5.1 mg/dL LAB HEMATOLOGY METHOD 07/10/2025 8:40 PM EDT [facility] Lactate, Arterial, Whole Blood 1.7(H) 0.5 - 1.6 mmol/L LAB HEMATOLOGY METHOD 07/10/2025 8:40 PM EDT [facility] Blood Arterial blood specimen / Unknown Arterial Puncture / Unknown 07/10/2025 8:23 PM EDT 07/10/2025 8:35 PM EDT us Luanne Crawford MD LAB BLOOD ORDERABLES Final Result [facility] [address] [place] [address] * (ABNORMAL) POCT glucose meter (07/10/2025 8:03 [...] Comment 07/10/2025 8:05 PM EDT [facility] School Nurse ID Cheyanne Briceño 07/10/2025 8:05 PM EDT [facility]ALTH[facility] Device ID [id number] 07/10/2025 8:05 PM EDT [facility] Specimen Type POC Capillary 07/10/2025 8:05 PM EDT [facility] Blood Capillary blood specimen / Unknown 07/10/2025 8:03 PM EDT 07/10/2025 8:05 PM EDT us Luanne Crawford MD LAB POINT OF CARE TEST DOCKED DEVICE UNSOLICITED RESULTS Final Result [facility] [address] [place] [address] * (ABNORMAL) POCT glucose meter (07/10/2025 6:22 [...] Comment 07/10/2025 6:25 PM EDT [facility] School Nurse ID Zara Segovia 025 6:25 PM EDT [facility]ALTH[facility] Device ID [id number] 07/10/2025 6:25 PM EDT [facility] Specimen Type POC Capillary 07/10/2025 6:25 PM EDT [facility] Blood Capillary blood specimen / Unknown 07/10/2025 6:22 PM EDT 07/10/2025 6:25 PM EDT Luanne Carwford MD LAB POINT OF CARE TEST DOCKED DEVICE UNSOLICITED RESULTS Final Result Performing Organization Address City/State/[facility] Co de Phone Number [facility] [address] [place] [address] * (ABNORMAL) POCT glucose meter (07/10/2025 2:17 PM EDT) [facility] POCT Glucose 145(H) 74 - 99 mg/dL [...] Comment 07/10/2025 2:19 PM EDT [facility] School Nurse ID Zara Segovia 025 2:19 PM EDT [facility]ALTH[facility] Device ID [id number] 07/10/2025 2:19 PM EDT [facility] Specimen Type POC Arterial 07/10/2025 2:19 PM EDT [facility] Blood Arterial blood specimen / Unknown 07/10/2025 2:17 PM EDT 07/10/2025 2:19 PM EDT us Luanne Crawford MD LAB POINT OF CARE TEST DOCKED DEVICE UNSOLICITED RESULTS Final Result [facility] [address] [place] [address] * XR Abdomen 1 View (07/10/2025 12:03 [...] of the abdomen. COMPARISON: None. FINDINGS: Limited [id number] abdominal radiograph for the purpose of locating tube position. The tip of the nasogastric tube is within the mid stomach. Procedure Note Bernabe Sen MD - 07/10/2025 CLINICAL INDICATION: feeding tube placement TECHNIQUE: Supine radiograph of the abdomen. COMPARISON: None. FINDINGS: Limited [id number] abdominal radiograph for the purpose of locatingtube [...] - 99 mg/dL 07/10/2025 12:02 PM EDT [facility] Comment:Accuracy of a glucos e result [...] Comment 07/10/2025 12:02 PM EDT [facility] School Nurse ID Zara Segovia 025 12:02 PM EDT [facility]ALTH[facility] Device ID [id number] 07/10/2025 12:02 PM EDT [facility] Specimen Type POC Arterial 07/10/2025 12:02 PM EDT [facility] Blood Arterial blood specimen / Unknown 07/10/2025 12:00 PM EDT 07/10/2025 12:02 PM EDT us Luanne Crawford MD LAB POINT OF CARE TEST DOCKED DEVICE UNSOLICITED RESULTS Final Result Performing Organization Address City/[facility] Co de Phone Number [facility] [address] [place] [address] * (ABNORMAL) POCT glucose meter (07/10/2025 9:50 AM EDT) [facility] POCT Glucose 134(H) 74 - 99 mg/dL [...] Comment 07/10/2025 9:52 AM EDT [facility] School Nurse ID Zara Segovia 025 9:52 AM EDT [facility]ALTH[facility] Device ID [id number] 07/10/2025 9:52 AM EDT [facility] Specimen Type POC Arterial 07/10/2025 9:52 AM EDT [facility] Blood Arterial blood specimen / Unknown 07/10/2025 9:50 AM EDT 07/10/2025 9:52 AM EDT us Luanne Crawford MD LAB POINT OF CARE TEST DOCKED DEVICE UNSOLICITED RESULTS Final Result [facility] [address] [place] [address] * ECG Adult (07/10/2025 8:42 AM EDT) EKG DIAGNOSIS CLASS Abnormal MUSE ECG Ventricular Rate 79 BPM MUSE ECG Atrial Rate 79 BPM MUSE ECG VT Interval 188 ms MUSE ECG QRSD Interval 90 ms MUSE ECG QT Interval 354 ms MUSE ECG QTC Interval 405 ms MUSE ECG P Fletcher 44 degrees MUSE ECG R Fletcher 17 degrees MUSE ECG T Wave Fletcher 27 degrees MUSE ECG Diagnosis Sinus rhythm with frequent premature ventricular complexes MUSE ECG Diagnosis Low voltage QRS MUSE ECG Diagnosis Cannot rule out Anterior infarct , age undetermined MUSE ECG Diagnosis MUSE ECG Diagnosis MUSE ECG Diagnosis Confirmed by Octavio Walsh ([id number]) on 07/10/2025 11:49:20 AM MUSE ECG 07/10/2025 8:42 AM EDT 07/10/2025 11:49 AM EDT us Luanne Crawford MD ECG ORDERABLES Final Resu lt Performing Organization Address [facility] Co de Phone Number MUSE ECG * [place] CRITICAL CARE, E/M 30-74 MINUTES (07/10/2025 8:15 [...] POCT glucose meter (07/10/2025 8:04 AM EDT) [facility] POCT Glucose 163(H) 74 - 99 mg/dL [...] Comment 07/10/2025 9:22 AM EDT [facility] School Nurse ID Segovia, Martina Asha 025 9:22 AM EDT [facility]ALTH[facility] Device ID [id number] 07/10/2025 9:22 AM EDT [facility] Specimen Type POC Arterial 07/10/2025 9:22 AM EDT [facility] Blood Arterial blood specimen / Unknown 07/10/2025 8:04 AM EDT 07/10/2025 9:22 AM EDT us Luanne Crawford MD LAB POINT OF CARE TEST DOCKED DEVICE UNSOLICITED RESULTS Final Result [facility] [address] [place] [address] * (ABNORMAL) POCT glucose meter (07/10/2025 6:04 [...] Comment 07/10/2025 6:05 AM EDT [facility] School Nurse ID Cheyanne Briceño 07/10/2025 6:05 AM EDT [facility]ALTH[facility] Device ID [id number] 07/10/2025 6:05 AM EDT [facility] Specimen Type POC Arterial 07/10/2025 6:05 AM EDT [facility] Blood Arterial blood specimen / Unknown 07/10/2025 6:04 AM EDT 07/10/2025 6:05 AM EDT Luanne Crawford MD LAB POINT OF CARE TEST DOCKED DEVICE UNSOLICITED RESULTS Final Result [facility] [address] [place] [address] * (ABNORMAL) POCT glucose meter (07/10/2025 3:59 AM EDT) [facility] POCT Glucose 153(H) 74 - 99 mg/dL [...] Comment 07/10/2025 4:01 AM EDT [facility]ALTH[facility] School Nurse ID Cheyanne Briceño 07/10/2025 4:01 AM EDT [facility]ALTH[facility] LAB Device ID [id number] 07/10/2025 4:01 AM EDT [facility] Specimen Type POC Arterial 07/10/2025 4:01 AM EDT [facility] Blood Arterial blood specimen / Unknown 07/10/2025 3:59 AM EDT 07/10/2025 4:01 AM EDT Luanne Crawford MD LAB POINT OF CARE TEST DOCKED DEVICE UNSOLICITED RESULTS Final Result Performing Organization Address [facility] de Phone Number [facility] [address] [place] [address] * (ABNORMAL) POCT glucose meter (07/10/2025 3:01 [...] Comment 07/10/2025 3:03 AM EDT [facility] School Nurse ID Cheyanne Briceño 07/10/2025 3:03 AM EDT [facility] Device ID [id number] 07/10/2025 3:03 AM EDT [facility] Specimen Type POC Arterial 07/10/2025 3:03 AM EDT [facility] Blood Arterial blood specimen / Unknown 07/10/2025 3:01 AM EDT 07/10/2025 3:03 AM EDT Luanne Crawford MD LAB POINT OF CARE TEST DOCKED DEVICE UNSOLICITED RESULTS Final Result Performing Organization Address City/[facility] de Phone Number [facility] [address] [place] [address] * (ABNORMAL) POCT glucose meter (07/10/2025 2:03 [...] 07/10/2025 2:04 AM EDT [facility] School Nurse ID Cheyanne Briceño 07/10/2025 2:04 AM EDT [facility] Device ID [id number] 07/10/2025 2:04 AM EDT [facility] Specimen Type POC Arterial 07/10/2025 2:04 AM EDT [facility] Blood Arterial blood specimen / Unknown 07/10/2025 2:03 AM EDT 07/10/2025 2:04 AM EDT us Luanne Crawford MD LAB POINT OF CARE TEST DOCKED DEVICE UNSOLICITED RESULTS Final Result Performing Organization Address [facility] de Phone Number [facility] [address] [place] [address] * (ABNORMAL) POCT glucose meter (07/10/2025 12:59 [...] 07/10/2025 1:00 AM EDT [facility] School Nurse ID Cheyanne Briceño 07/10/2025 1:00 AM EDT [facility] Device ID [id number] 07/10/2025 1:00 AM EDT [facility] Specimen Type POC Arterial 07/10/2025 1:00 AM EDT [facility] Blood Arterial blood specimen / Unknown 07/10/2025 12:59 AM EDT 07/10/2025 1:00 AM EDT us Luanne Crawford MD LAB POINT OF CARE TEST DOCKED DEVICE UNSOLICITED RESULTS Final Result Performing Organization Address [facility] Co de Phone Number [facility] [address] [place] [address] * Phosphorus (07/10/2025 12:03 AM EDT) Phosphorus, Plasma 4.2 2.5 - 4.5 mg/dL 07/10/2025 12:40 AM EDT [facility] Blood Arterial blood specimen / Unknown Venipuncture / Unknown 07/10/2025 12:03 AM EDT 07/10/2025 12:10 AM EDT Luanne Crawford MD LAB BLOOD ORDERABLES Final Result [facility] [address] [place] [address] * Magnesium, Plasma (07/10/2025 12:03 AM EDT) Magnesium, Plasma 2.1 1.9 - 2.4 mg/dL 07/10/2025 12:40 AM EDT [facility] Blood Arterial blood specimen / Unknown Venipuncture / Unknown 07/10/2025 12:03 AM EDT 07/10/2025 12:10 AM EDT Luanne Crawford MD LAB BLOOD ORDERABLES Final Result [facility] [address] [place] [address] * (ABNORMAL) Basic Metabolic Panel, Plasma (07/10/2025 12:03 AM EDT) Glucose, Plasma 155(H) 74 - 99 mg/dL 07/10/2025 12:40 AM EDT [facility] BUN, Plasma 22(H) 7 - 21 mg/dL 07/10/2025 12:40 AM EDT [facility] Creatinine, Plasma 1.25(H) 0.60 - 1.10 mg/dL 07/10/2025 12:40 AM EDT [facility] BUN/Creatinine Ratio 18 07/10/2025 12:40 AM EDT [facility] Sodium, Plasma 134(L) 136 - 145 mmol/L 07/10/2025 12:40 AM EDT [facility] Potassium, Plasma 3.7 3.6 - 4.9 mmol/L 07/10/2025 12:40 AM EDT [facility] Chloride, Plasma 101 97 - 107 mmol/L 07/10/2025 12:40 AM EDT [facility] CO2, Plasma 25 22 - 29 mmol/L 07/10/2025 12:40 AM EDT [facility] Anion Gap 8 6 - 16 mmol/L 07/10/2025 12:40 AM EDT [facility] Total Calcium, Plasma 9.3 8.9 - 10.2 mg/dL 07/10/2025 12:40 AM EDT [facility] eGFRcr 52.9 mL/min/1.7 3m*2 07/10/2025 12:40 AM EDT [facility] Comment:Reported eGFRcr in m L/min/1.73m2 is based the CKD-EPI 2020 equation that does not use a race coefficient. Blood Arterial blood specimen / Unknown Venipuncture / Unknown 07/10/2025 12:03 AM EDT 07/10/2025 12:10 AM EDT us Luanne Crawford MD LAB BLOOD ORDERABLES Final Result [facility] [address] [place] [address] * (ABNORMAL) CBC W/O Differential (07/10/2025 12:03 AM EDT) WBC Count 17.64(H) 3.70 - 10.30 10*3/uL LAB HEMATOLOGY METHOD 07/10/2025 12:22 AM EDT [facility] RBC Count 3.83(L) 3.90 - 5.20 10*6/uL LAB HEMATOLOGY METHOD 07/10/2025 12:22 AM EDT [facility] HGB 10.6(L) 11.2 - 15.7 g/dL LAB HEMATOLOGY METHOD 07/10/2025 12:22 AM EDT [facility] HCT 33.3(L) 34.0 - 45.0 % LAB HEMATOLOGY METHOD 07/10/2025 12:22 AM EDT [facility] Platelet Count 309 155 - 369 10*3/uL LAB HEMATOLOGY METHOD 07/10/2025 12:22 AM EDT [facility] MCV 87 79 - 98 fL LAB HEMATOLOGY METHOD 07/10/2025 12:22 AM EDT [facility] MCH 27.7 26.0 - 32.0 pg LAB HEMATOLOGY METHOD 07/10/2025 12:22 AM EDT [facility] MCHC 31.8 30.7 - 35.5 g/dL LAB HEMATOLOGY METHOD 07/10/2025 12:22 AM EDT [facility] RDW 17.9(H) 11.5 - 14.5 % LAB HEMATOLOGY METHOD 07/10/2025 12:22 AM EDT [facility] MPV 10.3 8.8 - 12.5 fL LAB HEMATOLOGY METHOD 07/10/2025 12:22 AM EDT [facility] nRBC 0.0 <=0.0 per 100 WBCs LAB HEMATOLOGY METHOD 07/10/2025 12:22 AM EDT [facility] Blood Arterial blood specimen / Unknown Venipuncture / Unknown 07/10/2025 12:03 AM EDT 07/10/2025 12:11 AM EDT us Luanne Crawford MD LAB BLOOD ORDERABLES Final Result [facility] [address] [place] [address] * (ABNORMAL) POCT glucose meter (07/10/2025 12:02 [...] Comment 07/10/2025 12:04 AM EDT [facility] School Nurse ID Cheyanne Briceño 07/10/2025 12:04 AM EDT [facility] Device ID [id number] 07/10/2025 12:04 AM EDT [facility] Specimen Type POC Arterial 07/10/2025 12:04 AM EDT [facility] Blood Arterial blood specimen / Unknown 07/10/2025 12:02 AM EDT 07/10/2025 12:04 AM EDT us Luanne Crawford MD LAB POINT OF CARE TEST DOCKED DEVICE UNSOLICITED RESULTS Final Result Performing Organization Address City/[facility] Co de Phone Number [facility] [address] [place] [address] * (ABNORMAL) POCT glucose meter (07/09/2025 10:01 [...] Comment 07/09/2025 10:04 PM EDT [facility] School Nurse ID Cheyanne Briceño 07/09/2025 10:04 PM EDT [facility] Device ID [id number] 07/09/2025 10:04 PM EDT [facility] Specimen Type POC Arterial 07/09/2025 10:04 PM EDT [facility] Blood Arterial blood specimen / Unknown 07/09/2025 10:01 PM EDT 07/09/2025 10:04 PM EDT us Luanne Crawford MD LAB POINT OF CARE TEST DOCKED DEVICE UNSOLICITED RESULTS Final Result Performing Organization Address City/[facility] Co de Phone Number [facility] [address] [place] [address] * (ABNORMAL) POCT glucose meter (07/09/2025 8:09 [...] 07/09/2025 8:11 PM EDT [facility] School Nurse ID Cheyanne Briceño 07/09/2025 8:11 PM EDT [facility] Device ID [id number] 07/09/2025 8:11 PM EDT [facility] Specimen Type POC Capillary 07/09/2025 8:11 PM EDT [facility] Blood Capillary blood specimen / Unknown 07/09/2025 8:09 PM EDT 07/09/2025 8:11 PM EDT us Luanne Crawford MD LAB POINT OF CARE TEST DOCKED DEVICE UNSOLICITED RESULTS Final Result Performing Organization Address City/State/[facility] Co de Phone Number [facility] [address] [place] [address] * (ABNORMAL) POCT glucose meter (07/09/2025 6:22 PM EDT) [facility] POCT Glucose 151(H) 74 - 99 mg/dL [...] 07/09/2025 6:24 PM EDT [facility] School Nurse ID Jeana Bear 07/09/2025 6:24 PM EDT [facility] Device ID [id number] 07/09/2025 6:24 PM EDT [facility] Specimen Type POC Capillary 07/09/2025 6:24 PM EDT [facility] Blood Capillary blood specimen / Unknown 07/09/2025 6:22 PM EDT 07/09/2025 6:24 PM EDT us Luanne Crawford MD LAB POINT OF CARE TEST DOCKED DEVICE UNSOLICITED RESULTS Final Result Performing Organization Address City/[facility] Co de Phone Number [facility] [address] [place] [address] * (ABNORMAL) POCT glucose meter (07/09/2025 4:06 [...] for testing. Comment 07/09/2025 4:07 PM EDT [facility] School Nurse ID Jeana Bear 07/09/2025 4:07 PM EDT [facility] Device ID [id number] 07/09/2025 4:07 PM EDT [facility] Specimen Type POC Capillary 07/09/2025 4:07 PM EDT [facility] Blood Capillary blood specimen / Unknown 07/09/2025 4:06 PM EDT 07/09/2025 4:07 PM EDT us Luanne Crawford MD LAB POINT OF CARE TEST DOCKED DEVICE UNSOLICITED RESULTS Final Result Performing Organization Address City/[facility] Co de Phone Number [facility] [address] [place] [address] * (ABNORMAL) Blood gas, arterial (07/09/2025 3:16 PM EDT) pH, Arterial 7.31(L) 7.35 - 7.45 LAB HEMATOLOGY METHOD 07/09/2025 3:40 PM EDT [facility] pCO2, Arterial 53(H) 35 - 48 mmHg LAB HEMATOLOGY METHOD 07/09/2025 3:40 PM EDT [facility] pO2, Arterial 153(H) 83 - 108 mmHg LAB HEMATOLOGY METHOD 07/09/2025 3:40 PM EDT [facility] SO2, Measured, Arterial 100(H) 94 - 98 % LAB HEMATOLOGY METHOD 07/09/2025 3:40 PM EDT [facility] Base Excess, Arterial -0.4 -2.0 - 3.0 mmol/L LAB HEMATOLOGY METHOD 07/09/2025 3:40 PM EDT [facility] Bicarbonate, Calculated, Arterial 26 22 - 26 mmol/L LAB HEMATOLOGY METHOD 07/09/2025 3:40 PM EDT [facility] Hematocrit, Whole Blood 30.6(L) 34.0 - 45.0 % LAB HEMATOLOGY METHOD 07/09/2025 3:40 PM EDT [facility] Sodium, Whole Blood 141 136 - 145 mmol/L LAB HEMATOLOGY METHOD 07/09/2025 3:40 PM EDT [facility] Potassium, Whole Blood 3.4(L) 3.6 - 4.9 mmol/L LAB HEMATOLOGY METHOD 07/09/2025 3:40 PM EDT [facility] Chloride, Whole Blood 107 97 - 107 mmol/L LAB HEMATOLOGY METHOD 07/09/2025 3:40 PM EDT [facility] Glucose, Whole Blood 141(H) 74 - 99 mg/dL LAB HEMATOLOGY METHOD 07/09/2025 3:40 PM EDT [facility] Ionized Calcium, Whole Blood 4.9 4.6 - 5.1 mg/dL LAB HEMATOLOGY METHOD 07/09/2025 3:40 PM EDT [facility] Lactate, Arterial, Whole Blood 0.9 0.5 - 1.6 mmol/L LAB HEMATOLOGY METHOD 07/09/2025 3:40 PM EDT [facility] Blood Arterial blood specimen / Unknown Arterial Line / Unknown 07/09/2025 3:16 PM EDT 07/09/2025 3:38 PM EDT us Luanne Crawford MD LAB BLOOD ORDERABLES Final Result [facility] [address] [place] [address] * (ABNORMAL) POCT glucose meter (07/09/2025 3:01 [...] 07/09/2025 3:03 PM EDT [facility] School Nurse ID Jeana Bear 07/09/2025 3:03 PM EDT [facility] Device ID [id number] 07/09/2025 3:03 PM EDT [facility] Specimen Type POC Capillary 07/09/2025 3:03 PM EDT [facility] Blood Capillary blood specimen / Unknown 07/09/2025 3:01 PM EDT 07/09/2025 3:03 PM EDT Luanne Crawford MD LAB POINT OF CARE TEST DOCKED DEVICE UNSOLICITED RESULTS Final Result [facility] [address] [place] [address] * (ABNORMAL) POCT glucose meter (07/09/2025 1:57 PM EDT) [facility] POCT Glucose 115(H) 74 - 99 mg/dL [...] 07/09/2025 1:59 PM EDT [facility] School Nurse ID Jeana Bear 07/09/2025 1:59 PM EDT [facility] Device ID [id number] 07/09/2025 1:59 PM EDT [facility] Specimen Type POC Capillary 07/09/2025 1:59 PM EDT [facility] Blood Capillary blood specimen / Unknown 07/09/2025 1:57 PM EDT 07/09/2025 1:59 PM EDT us Luanne Crawford MD LAB POINT OF CARE TEST DOCKED DEVICE UNSOLICITED RESULTS Final Result Performing Organization Address City/[facility]/ZIP Co de Phone Number [facility] [address] [place] [address] * Phosphorus (07/09/2025 1:21 PM EDT) Phosphorus, Plasma 4.2 2.5 - 4.5 mg/dL 07/09/2025 2:49 PM EDT [facility] Blood Arterial blood specimen / Unknown Arterial Line / Unknown 07/09/2025 1:21 PM EDT 07/09/2025 2:01 PM EDT Luanne Crawford MD LAB BLOOD ORDERABLES Final Result Performing Organization Address City/[facility]/ZIP Co de Phone Number [facility] [address] [place] [address] * Magnesium (07/09/2025 1:21 PM EDT) Magnesium, Plasma 2.3 1.9 - 2.4 mg/dL 07/09/2025 2:49 PM EDT [facility] Blood Arterial blood specimen / Unknown Arterial Line / Unknown 07/09/2025 1:21 PM EDT 07/09/2025 2:01 PM EDT Luanne Crawford MD LAB BLOOD ORDERABLES Final Result [facility] [address] [place] [address] * (ABNORMAL) Basic metabolic panel (07/09/2025 1:21 PM EDT) Glucose, Plasma 100(H) 74 - 99 mg/dL 07/09/2025 2:49 PM EDT [facility] BUN, Plasma 26(H) 7 - 21 mg/dL 07/09/2025 2:49 PM EDT [facility] Creatinine, Plasma 1.42(H) 0.60 - 1.10 mg/dL 07/09/2025 2:49 PM EDT [facility] BUN/Creatinine Ratio 18 07/09/2025 2:49 PM EDT [facility] Sodium, Plasma 140 136 - 145 mmol/L 07/09/2025 2:49 PM EDT [facility] Potassium, Plasma 3.7 3.6 - 4.9 mmol/L 07/09/2025 2:49 PM EDT [facility] Chloride, Plasma 104 97 - 107 mmol/L 07/09/2025 2:49 PM EDT [facility] CO2, Plasma 24 22 - 29 mmol/L 07/09/2025 2:49 PM EDT [facility] Anion Gap 12 6 - 16 mmol/L 07/09/2025 2:49 PM EDT [facility] Total Calcium, Plasma 9.1 8.9 - 10.2 mg/dL 07/09/2025 2:49 PM EDT [facility] eGFRcr 45.4 mL/min/1.7 3m*2 07/09/2025 2:49 PM EDT [facility] Comment:Reported eGFRcr in m L/min/1.73m2 is based the CKD-EPI 2020 equation that does not use a race coefficient. Blood Arterial blood specimen / Unknown Arterial Line / Unknown 07/09/2025 1:21 PM EDT 07/09/2025 2:01 PM EDT us Luanne Crawford MD LAB BLOOD ORDERABLES Final Result [facility] [address] [place] [address] * (ABNORMAL) POCT glucose meter (07/09/2025 1:20 PM EDT) Pathologist [facility] POCT Glucose 103(H) 74 - 99 mg/dL 07/09/2025 1:22 PM EDT [facility] Comment:Accuracy of a glucos e [...] Comment 07/09/2025 1:22 PM EDT [facility] School Nurse ID Jeana Bear 07/09/2025 1:22 PM EDT [facility] Device ID [id number] 07/09/2025 1:22 PM EDT [facility] Specimen Type POC Arterial 07/09/2025 1:22 PM EDT [facility] Blood Arterial blood specimen / Unknown 07/09/2025 1:20 PM EDT 07/09/2025 1:22 PM EDT Luanne Crawford MD LAB POINT OF CARE TEST DOCKED DEVICE UNSOLICITED RESULTS Final Result Performing Organization Address [facility] Co de Phone Number [facility] [address] [place] [address] * (ABNORMAL) POCT glucose meter (07/09/2025 12:44 [...] Comment 07/09/2025 12:45 PM EDT [facility] School Nurse ID Jeana Bear 07/09/2025 12:45 PM EDT [facility] Device ID [id number] 07/09/2025 12:45 PM EDT [facility] Specimen Type POC Capillary 07/09/2025 12:45 PM EDT [facility] Blood Capillary blood specimen / Unknown 07/09/2025 12:44 PM EDT 07/09/2025 12:45 PM EDT Luanne Crawford MD LAB POINT OF CARE TEST DOCKED DEVICE UNSOLICITED RESULTS Final Result Performing Organization Address City/[facility]/ZIP Co de Phone Number [facility] [address] [place] [address] * (ABNORMAL) POCT glucose meter (07/09/2025 12:19 [...] Comment 07/09/2025 12:21 PM EDT [facility] School Nurse ID Jeana Bear 07/09/2025 12:21 PM EDT [facility] Device ID [id number] 07/09/2025 12:21 PM EDT [facility] Specimen Type POC Capillary 07/09/2025 12:21 PM EDT [facility] Blood Capillary blood specimen / Unknown 07/09/2025 12:19 PM EDT 07/09/2025 12:21 PM EDT us Luanne Crawford MD LAB POINT OF CARE TEST DOCKED DEVICE UNSOLICITED RESULTS Final Result Performing Organization Address [facility] Co de Phone Number [facility] [address] [place] [address] * Blood Culture (Aerobic/Anaerobet Set) (07/09/2025 10:35 AM EDT) Culture No growth at day 5 KAROLINA 07/14/2025 12:02 PM EDT [facility] Blood Structure of antecubital vein / Unknown Venipuncture / Unknown 07/09/2025 10:35 AM EDT 07/09/2025 10:50 AM EDT us My Charles MD LAB MICROBIOLOGY - GENE RAL ORDERABLES Final Result Performing Organization Address City/[facility]/ZIP Co de Phone Number [facility] [address] [place] [address] * Blood Culture (Aerobic/Anaerobet Set) (07/09/2025 10:35 AM EDT) Culture No growth at day 5 KAROLINA 07/14/2025 12:02 PM EDT [facility] Blood Structure of antecubital vein / Unknown Venipuncture / Unknown 07/09/2025 10:35 AM EDT 07/09/2025 10:50 AM EDT us My Charles MD LAB MICROBIOLOGY - GENE RAL ORDERABLES Final Result [facility] [address] [place] [address] * (ABNORMAL) POCT glucose meter (07/09/2025 10:04 AM EDT) [facility] POCT Glucose 114(H) 74 - 99 mg/dL [...] Comment 07/09/2025 10:05 AM EDT [facility] School Nurse ID Jeana Bear 07/09/2025 10:05 AM EDT [facility] Device ID [id number] 07/09/2025 10:05 AM EDT [facility] Specimen Type POC Capillary 07/09/2025 10:05 AM EDT [facility] Blood Capillary blood specimen / Unknown 07/09/2025 10:04 AM EDT 07/09/2025 10:05 AM EDT us Luanne Crawford MD LAB POINT OF CARE TEST DOCKED DEVICE UNSOLICITED RESULTS Final Result [facility] [address] [place] [address] * Multi Drug Resistance Test (07/09/2025 9:46 AM EDT) Culture No growth at day 1 07/10/2025 11:58 AM EDT [facility] Swab (Nares and Leann Rectal) Non-blood Collection / Unknown 07/09/2025 9:46 AM EDT 07/09/2025 10:09 AM EDT Narrative [facility] - 07/10/2025 11:58 AM EDT This test was developed and its performance characteristics determined by the [facility]. Although the media is FDA-approved, it is not FDA-approved for all specimen types submitted. The FDA has determined that such clearance or approval is not necessary. This test is used for surveillance purposes. It should not be regarded as investigational or for research. The [facility] is certified under the Clinical Laboratory Improvement Amendments of 1988 (CLIA-88) as qualified to perform high complexity clinical laboratory testing. us Luanne Crawford MD LAB MICROBIOLOGY - GENERAL ORDERABLES Final Result [facility] [address] [place] [address] * (ABNORMAL) Blood gas, arterial (07/09/2025 8:47 AM EDT) pH, Arterial 7.30(L) 7.35 - 7.45 LAB HEMATOLOGY METHOD 07/09/2025 8:55 AM EDT [facility] pCO2, Arterial 53(H) 35 - 48 mmHg LAB HEMATOLOGY METHOD 07/09/2025 8:55 AM EDT [facility] pO2, Arterial 173(H) 83 - 108 mmHg LAB HEMATOLOGY METHOD 07/09/2025 8:55 AM EDT [facility] SO2, Measured, Arterial 98 94 - 98 % LAB HEMATOLOGY METHOD 07/09/2025 8:55 AM EDT [facility] Base Excess, Arterial -0.8 -2.0 - 3.0 mmol/L LAB HEMATOLOGY METHOD 07/09/2025 8:55 AM EDT [facility] Bicarbonate, Calculated, Arterial 26 22 - 26 mmol/L LAB HEMATOLOGY METHOD 07/09/2025 8:55 AM EDT [facility] Hematocrit, Whole Blood 27.3(L) 34.0 - 45.0 % LAB HEMATOLOGY METHOD 07/09/2025 8:55 AM EDT [facility] Sodium, Whole Blood 140 136 - 145 mmol/L LAB HEMATOLOGY METHOD 07/09/2025 8:55 AM EDT [facility] Potassium, Whole Blood 2.9(L) 3.6 - 4.9 mmol/L LAB HEMATOLOGY METHOD 07/09/2025 8:55 AM EDT [facility] Chloride, Whole Blood 106 97 - 107 mmol/L LAB HEMATOLOGY METHOD 07/09/2025 8:55 AM EDT [facility] Glucose, Whole Blood 155(H) 74 - 99 mg/dL LAB HEMATOLOGY METHOD 07/09/2025 8:55 AM EDT [facility] Ionized Calcium, Whole Blood 5.0 4.6 - 5.1 mg/dL LAB HEMATOLOGY METHOD 07/09/2025 8:55 AM EDT [facility] Lactate, Arterial, Whole Blood 1.4 0.5 - 1.6 mmol/L LAB HEMATOLOGY METHOD 07/09/2025 8:55 AM EDT [facility] Blood Arterial blood specimen / Unknown Arterial Line / Unknown 07/09/2025 8:47 AM EDT 07/09/2025 8:54 AM EDT us Dorcas Hennessy MD LAB BLOOD ORDERABLES Final Resul t [facility] [address] [place] [address] * (ABNORMAL) POCT glucose meter (07/09/2025 8:01 [...] Comment 07/09/2025 8:03 AM EDT [facility] School Nurse ID Jeana Bear 07/09/2025 8:03 AM EDT [facility] Device ID [id number] 07/09/2025 8:03 AM EDT [facility] Specimen Type POC Capillary 07/09/2025 8:03 AM EDT [facility] Blood Capillary blood specimen / Unknown 07/09/2025 8:01 AM EDT 07/09/2025 8:03 AM EDT us Luanne Crawford MD LAB POINT OF CARE TEST DOCKED DEVICE UNSOLICITED RESULTS Final Result Performing Organization Address City/State/[facility] Co dc Phone Number [facility] [address] [place] [id number] * [place] [facility], E/M 30-74 MINUTES (07/09/2025 7:15 [...] Comment 07/09/2025 6:20 AM EDT [facility] School Nurse ID Cheyanne Briceño 07/09/2025 6:20 AM EDT [facility] Device ID [id number] 07/09/2025 6:20 AM EDT [facility] Specimen Type POC Arterial 07/09/2025 6:20 AM EDT [facility] Blood Arterial blood specimen / Unknown 07/09/2025 6:05 AM EDT 07/09/2025 6:20 AM EDT us Luanne Crawford MD LAB POINT OF CARE TEST DOCKED DEVICE UNSOLICITED RESULTS Final Result Performing Organization Address City/[facility] Co de Phone Number [facility] [address] [place] [address] * (ABNORMAL) Hemoglobin A1c (07/09/2025 4:57 AM EDT) Hemoglobin A1c 7.5(H) <5.7 % 07/09/2025 12:09 PM EDT [facility] Blood Arterial blood specimen / Unknown Venipuncture / Unknown 07/09/2025 4:57 AM EDT 07/09/2025 5:07 AM EDT Narrative [facility] - 07/09/2025 12:09 PM EDT HA1C Interpretive Data: Diagnosis of Diabetes: Diabetic > or = 6.5% Pre-diabetic 5.7 to 6.4% Non-diabetic < or = 5.6% Glycemic Targets for Type I and Type II Diabetics: Non- Adults <7.0% Adults <6.0% Children and Adolescents <7.5% Source: [place] [employer]. Standards of medical care in diabetes,2017. Diabetes Care.2017:40 (suppl 1):S1-S135. us Dorcas Hennessy MD LAB BLOOD ORDERABLES Final Resul t [facility] [address] [place] [address] * Phosphorus (07/09/2025 4:57 AM EDT) Phosphorus, Plasma 4.1 2.5 - 4.5 mg/dL 07/09/2025 5:35 AM EDT [facility] Blood Arterial blood specimen / Unknown Venipuncture / Unknown 07/09/2025 4:57 AM EDT 07/09/2025 5:06 AM EDT Luanne Crwaford MD LAB BLOOD ORDERABLES Final Result Performing Organization Address [facility]/ZIP Co de Phone Number [facility] [address] [place] [address] * Magnesium, Plasma (07/09/2025 4:57 AM EDT) Magnesium, Plasma 2.2 1.9 - 2.4 mg/dL 07/09/2025 5:35 AM EDT [facility] Blood Arterial blood specimen / Unknown Venipuncture / Unknown 07/09/2025 4:57 AM EDT 07/09/2025 5:06 AM EDT Luanne Crawford MD LAB BLOOD ORDERABLES Final Result Performing Organization Address City/[facility]/ZIP Co de Phone Number [facility] [address] [place] [address] * (ABNORMAL) Basic Metabolic Panel, Plasma (07/09/2025 4:57 AM EDT) Glucose, Plasma 235(H) 74 - 99 mg/dL 07/09/2025 5:35 AM EDT [facility] BUN, Plasma 30(H) 7 - 21 mg/dL 07/09/2025 5:35 AM EDT [facility] Creatinine, Plasma 1.58(H) 0.60 - 1.10 mg/dL 07/09/2025 5:35 AM EDT [facility] BUN/Creatinine Ratio 19 07/09/2025 5:35 AM EDT [facility] Sodium, Plasma 136 136 - 145 mmol/L 07/09/2025 5:35 AM EDT [facility] Potassium, Plasma 3.5(L) 3.6 - 4.9 mmol/L 07/09/2025 5:35 AM EDT [facility] Chloride, Plasma 101 97 - 107 mmol/L 07/09/2025 5:35 AM EDT [facility] CO2, Plasma 23 22 - 29 mmol/L 07/09/2025 5:35 AM EDT [facility] Anion Gap 12 6 - 16 mmol/L 07/09/2025 5:35 AM EDT [facility] Total Calcium, Plasma 9.2 8.9 - 10.2 mg/dL 07/09/2025 5:35 AM EDT [facility] eGFRcr 40.0 mL/min/1.7 3m*2 07/09/2025 5:35 AM EDT [facility] Comment:Reported eGFRcr in m L/min/1.73m2 is based the CKD-EPI 2020 equation that does not use a race coefficient. Blood Arterial blood specimen / Unknown Venipuncture / Unknown 07/09/2025 4:57 AM EDT 07/09/2025 5:06 AM EDT us Luanne Crawford MD LAB BLOOD ORDERABLES Final Result [facility] [address] [place] [address] * (ABNORMAL) CBC W/O Differential (07/09/2025 4:57 AM EDT) WBC Count 32.25(H) 3.70 - 10.30 10*3/uL LAB HEMATOLOGY METHOD 07/09/2025 5:15 AM EDT [facility] RBC Count 3.89(L) 3.90 - 5.20 10*6/uL LAB HEMATOLOGY METHOD 07/09/2025 5:15 AM EDT [facility] HGB 11.0(L) 11.2 - 15.7 g/dL LAB HEMATOLOGY METHOD 07/09/2025 5:15 AM EDT [facility] HCT 33.4(L) 34.0 - 45.0 % LAB HEMATOLOGY METHOD 07/09/2025 5:15 AM EDT [facility] Platelet Count 358 155 - 369 10*3/uL LAB HEMATOLOGY METHOD 07/09/2025 5:15 AM EDT [facility] MCV 86 79 - 98 fL LAB HEMATOLOGY METHOD 07/09/2025 5:15 AM EDT [facility] MCH 28.3 26.0 - 32.0 pg LAB HEMATOLOGY METHOD 07/09/2025 5:15 AM EDT [facility] MCHC 32.9 30.7 - 35.5 g/dL LAB HEMATOLOGY METHOD 07/09/2025 5:15 AM EDT [facility] RDW 17.4(H) 11.5 - 14.5 % LAB HEMATOLOGY METHOD 07/09/2025 5:15 AM EDT [facility] MPV 10.0 8.8 - 12.5 fL LAB HEMATOLOGY METHOD 07/09/2025 5:15 AM EDT [facility] nRBC 0.0 <=0.0 per 100 WBCs LAB HEMATOLOGY METHOD 07/09/2025 5:15 AM EDT [facility] Blood Arterial blood specimen / Unknown Venipuncture / Unknown 07/09/2025 4:57 AM EDT 07/09/2025 5:07 AM EDT us Luanne Crawford MD LAB BLOOD ORDERABLES Final Result [facility] [address] [place] [address] * (ABNORMAL) POCT glucose meter (07/09/2025 4:03 [...] Comment 07/09/2025 4:05 AM EDT [facility] School Nurse ID Cheyanne Briceño 07/09/2025 4:05 AM EDT [facility] Device ID [id number] 07/09/2025 4:05 AM EDT [facility] Specimen Type POC Arterial 07/09/2025 4:05 AM EDT [facility] Blood Arterial blood specimen / Unknown 07/09/2025 4:03 AM EDT 07/09/2025 4:05 AM EDT Luanne Crawford MD LAB POINT OF CARE TEST DOCKED DEVICE UNSOLICITED RESULTS Final Result [facility] [address] [place] [address] * XR Chest 1 View (07/09/2025 3:42 [...] for testing. Comment 07/09/2025 2:17 AM EDT [facility] School Nurse ID Cheyanne Briceño 07/09/2025 2:17 AM EDT [facility] Device ID [id number] 07/09/2025 2:17 AM EDT [facility] Specimen Type POC Arterial 07/09/2025 2:17 AM EDT [facility] Blood Arterial blood specimen / Unknown 07/09/2025 2:15 AM EDT 07/09/2025 2:17 AM EDT us Luanne Crawford MD LAB POINT OF CARE TEST DOCKED DEVICE UNSOLICITED RESULTS Final Result Performing Organization Address City/State/[facility] Co de Phone Number [facility] [address] [place], [place] [id number] * (ABNORMAL) Blood gas panel, arterial (07/09/2025 2:11 AM EDT) pH, Arterial 7.25(LL) 7.35 - 7.45 LAB HEMATOLOGY METHOD 07/09/2025 2:23 AM EDT [facility] pCO2, Arterial 56(H) 35 - 48 mmHg LAB HEMATOLOGY METHOD 07/09/2025 2:23 AM EDT [facility] pO2, Arterial 67(L) 83 - 108 mmHg LAB HEMATOLOGY METHOD 07/09/2025 2:23 AM EDT [facility] SO2, Measured, Arterial 91(L) 94 - 98 % LAB HEMATOLOGY METHOD 07/09/2025 2:23 AM EDT [facility] Base Excess, Arterial -2.7(L) -2.0 - 3.0 mmol/L LAB HEMATOLOGY METHOD 07/09/2025 2:23 AM EDT [facility] Bicarbonate, Calculated, Arterial 25 22 - 26 mmol/L LAB HEMATOLOGY METHOD 07/09/2025 2:23 AM EDT [facility] Hematocrit, Whole Blood 31.5(L) 34.0 - 45.0 % LAB HEMATOLOGY METHOD 07/09/2025 2:23 AM EDT [facility] Sodium, Whole Blood 135(L) 136 - 145 mmol/L LAB HEMATOLOGY METHOD 07/09/2025 2:23 AM EDT [facility] Potassium, Whole Blood 3.5(L) 3.6 - 4.9 mmol/L LAB HEMATOLOGY METHOD 07/09/2025 2:23 AM EDT [facility] Chloride, Whole Blood 103 97 - 107 mmol/L LAB HEMATOLOGY METHOD 07/09/2025 2:23 AM EDT [facility] Glucose, Whole Blood 279(H) 74 - 99 mg/dL LAB HEMATOLOGY METHOD 07/09/2025 2:23 AM EDT [facility] LAB Ionized Calcium, Whole Blood 4.9 4.6 - 5.1 mg/dL LAB HEMATOLOGY METHOD 07/09/2025 2:23 AM EDT [facility] Lactate, Arterial, Whole Blood 1.2 0.5 - 1.6 mmol/L LAB HEMATOLOGY METHOD 07/09/2025 2:23 AM EDT [facility] Blood Arterial blood specimen / Unknown Arterial Puncture / Unknown 07/09/2025 2:11 AM EDT 07/09/2025 2:21 AM EDT us Luanne Crawford MD LAB BLOOD ORDERABLES Final Result [facility] [address] [place] [address] * (ABNORMAL) POCT glucose meter (07/09/2025 1:22 [...] Comment 07/09/2025 1:24 AM EDT [facility]ALTH[facility] LAB School Nurse ID Cheyanne Briceño 07/09/2025 1:24 AM EDT [facility]ALTH[facility]ARE LAB Device ID [id number] 07/09/2025 1:24 AM EDT [facility]ALTH[facility] LAB Specimen Type POC Arterial 07/09/2025 1:24 AM EDT [facility] Blood Arterial blood specimen / Unknown 07/09/2025 1:22 AM EDT 07/09/2025 1:24 AM EDT Luanne Crawford MD LAB POINT OF CARE TEST DOCKED DEVICE UNSOLICITED RESULTS Final Result [facility] [address] [place] [address] * (ABNORMAL) POCT glucose meter (07/09/2025 12:06 AM EDT) [facility] POCT Glucose 311(H) 74 - 99 mg/dL [...] 07/09/2025 12:08 AM EDT [facility] School Nurse ID Cheyanne Briceño 07/09/2025 12:08 AM EDT [facility]ALTHCARE LAB Device ID [id number] 07/09/2025 12:08 AM EDT [facility]ALTH[facility] LAB Specimen Type POC Arterial 07/09/2025 12:08 AM EDT [facility] Blood Arterial blood specimen / Unknown 07/09/2025 12:06 AM EDT 07/09/2025 12:08 AM EDT us Luanne Crawford MD LAB POINT OF CARE TEST DOCKED DEVICE UNSOLICITED RESULTS Final Result [facility] [address] [place] [address] * APTT (07/08/2025 11:53 PM EDT) aPTT 25 25 - 35 sec LAB COAGULATION METHOD 07/09/2025 12:32 AM EDT [facility] Blood Venous blood specimen / Unknown Venipuncture / Unknown 07/08/2025 11:53 PM EDT 07/08/2025 11:59 PM EDT us Luanne Crawford MD LAB BLOOD ORDERABLES Final Result Performing Organization Address City/[facility] de Phone Number [facility] [address] [place] [address] * (ABNORMAL) Protime-INR (07/08/2025 11:53 PM EDT) Prothrombin Time 15.2(H) 12.0 - 14.3 sec LAB COAGULATION METHOD 07/09/2025 12:32 AM EDT [facility] INR 1.2(H) 0.9 - 1.1 LAB COAGULATION METHOD 07/09/2025 12:32 AM EDT [facility] Blood Venous blood specimen / Unknown Venipuncture / Unknown 07/08/2025 11:53 PM EDT 07/08/2025 11:59 PM EDT Narrative [facility] - 07/09/2025 12:32 AM EDT OPTIMAL INR RANGES FOR PATIENT ON ORAL ANTICOAGULANT THERAPY Prevention of venous thromboembolism INR 2.0 to 3.0 In patients with heart disease: Atrial fibrillation INR 2.0 to 3.0 Valvular heart disease INR 2.0 to 3.0 Tissue heart valves INR 2.0 to 3.0 Mechanical prosthetic valves INR 2.5 to 3.5 Prevention of recurrent RI INR 2.5 to 3.5 us Luanne Crawford MD LAB BLOOD ORDERABLES Final Result Performing Organization Address City/[facility]/ZIP Co de Phone Number [facility] [address] [place] [address] * Phosphorus, Plasma (07/08/2025 11:52 PM EDT) Phosphorus, Plasma 3.6 2.5 - 4.5 mg/dL 07/09/2025 12:27 AM EDT [facility] Blood Venous blood specimen / Unknown Venipuncture / Unknown 07/08/2025 11:52 PM EDT 07/08/2025 11:59 PM EDT us Luanne Crawford MD LAB BLOOD ORDERABLES Final Result Performing Organization Address [facility]/ZIP Co de Phone Number [facility] [address] [place] [address] * (ABNORMAL) Magnesium, Plasma (07/08/2025 11:52 PM EDT) Magnesium, Plasma 1.8(L) 1.9 - 2.4 mg/dL 07/09/2025 12:27 AM EDT [facility] Blood Venous blood specimen / Unknown Venipuncture / Unknown 07/08/2025 11:52 PM EDT 07/08/2025 11:59 PM EDT us Luanne Crawford MD LAB BLOOD ORDERABLES Final Result Performing Organization Address [facility]/ZIP Co de Phone Number [facility] [address] [place] [address] * (ABNORMAL) Basic Metabolic Panel, Plasma (07/08/2025 11:52 PM EDT) Glucose, Plasma 314(H) 74 - 99 mg/dL 07/09/2025 12:27 AM EDT [facility] BUN, Plasma 32(H) 7 - 21 mg/dL 07/09/2025 12:27 AM EDT [facility] Creatinine, Plasma 1.80(H) 0.60 - 1.10 mg/dL 07/09/2025 12:27 AM EDT [facility] BUN/Creatinine Ratio 18 07/09/2025 12:27 AM EDT [facility] Sodium, Plasma 136 136 - 145 mmol/L 07/09/2025 12:27 AM EDT [facility] Potassium, Plasma 3.6 3.6 - 4.9 mmol/L 07/09/2025 12:27 AM EDT [facility] Chloride, Plasma 100 97 - 107 mmol/L 07/09/2025 12:27 AM EDT [facility] CO2, Plasma 23 22 - 29 mmol/L 07/09/2025 12:27 AM EDT [facility] Anion Gap 13 6 - 16 mmol/L 07/09/2025 12:27 AM EDT [facility] Total Calcium, Plasma 8.9 8.9 - 10.2 mg/dL 07/09/2025 12:27 AM EDT [facility] eGFRcr 34.2 mL/min/1.7 3m*2 07/09/2025 12:27 AM EDT [facility] Comment:Reported eGFRcr in m L/min/1.73m2 is based the CKD-EPI 2020 equation that does not use a race coefficient. Blood Venous blood specimen / Unknown Venipuncture / Unknown 07/08/2025 11:52 PM EDT 07/08/2025 11:59 PM EDT us Luanne Crawford MD LAB BLOOD ORDERABLES Final Result [facility] [address] [place] [address] * (ABNORMAL) CBC W/O Differential (07/08/2025 11:52 PM EDT) WBC Count 22.50(H) 3.70 - 10.30 10*3/uL LAB HEMATOLOGY METHOD 07/09/2025 12:16 AM EDT [facility] RBC Count 3.60(L) 3.90 - 5.20 10*6/uL LAB HEMATOLOGY METHOD 07/09/2025 12:16 AM EDT [facility] HGB 10.0(L) 11.2 - 15.7 g/dL LAB HEMATOLOGY METHOD 07/09/2025 12:16 AM EDT [facility] HCT 30.8(L) 34.0 - 45.0 % LAB HEMATOLOGY METHOD 07/09/2025 12:16 AM EDT [facility] Platelet Count 273 155 - 369 10*3/uL LAB HEMATOLOGY METHOD 07/09/2025 12:16 AM EDT [facility] MCV 86 79 - 98 fL LAB HEMATOLOGY METHOD 07/09/2025 12:16 AM EDT [facility] MCH 27.8 26.0 - 32.0 pg LAB HEMATOLOGY METHOD 07/09/2025 12:16 AM EDT [facility] MCHC 32.5 30.7 - 35.5 g/dL LAB HEMATOLOGY METHOD 07/09/2025 12:16 AM EDT [facility] RDW 16.9(H) 11.5 - 14.5 % LAB HEMATOLOGY METHOD 07/09/2025 12:16 AM EDT [facility] MPV 10.3 8.8 - 12.5 fL LAB HEMATOLOGY METHOD 07/09/2025 12:16 AM EDT [facility] nRBC 0.0 <=0.0 per 100 WBCs LAB HEMATOLOGY METHOD 07/09/2025 12:16 AM EDT [facility] Blood Venous blood specimen / Unknown Venipuncture / Unknown 07/08/2025 11:52 PM EDT 07/08/2025 11:59 PM EDT us Luanne Crawford MD LAB BLOOD ORDERABLES Final Result [facility] [address] [place] [address] * Richie auris Surveillance by PCR (07/08/2025 11:50 PM EDT) Richie auris PCR Result Not Detected Not Detected 07/09/2025 11:26 AM EDT [facility] Swab (Axilla and Groin) Non-blood Collection / Unknown 07/08/2025 11:50 PM EDT 07/09/2025 12:17 AM EDT Narrative [facility] - 07/09/2025 11:26 AM EDT This PCR assay was developed and its performance characteristics determined by [facility] as appropriate for clinical purposes. This assay has not been cleared or approved by the FDA, but is performed in a CLIA regulated laboratory that is qualified to perform high-complexity testing. Luanne Crawford MD LAB MICROBIOLOGY - GENERAL ORDERABLES Final Result Performing Organization Address [facility] Co de Phone Number [facility] [address] [place] [address] * Multi Drug Resistance Test (07/08/2025 11:50 PM EDT) Culture No growth at day 1 07/10/2025 5:45 AM EDT [facility] Swab (Nares and Leann Rectal) Non-blood Collection / Unknown 07/08/2025 11:50 PM EDT 07/09/2025 12:17 AM EDT Narrative [facility] - 07/10/2025 5:45 AM EDT This test was developed and its performance characteristics determined by the [facility]. Although the media is FDA-approved, it is not FDA-approved for all specimen types submitted. The FDA has determined that such clearance or approval is not necessary. This test is used for surveillance purposes. It should not be regarded as investigational or for research. The [facility] is certified under the Clinical Laboratory Improvement Amendments of 1988 (CLIA-88) as qualified to perform high complexity clinical laboratory testing. Luanne Crawford MD LAB MICROBIOLOGY - GENERAL ORDERABLES Final Result Performing Organization Address [facility] Co de Phone Number [facility] [address] [place] [address] * (ABNORMAL) Blood gas, arterial (07/08/2025 11:50 PM EDT) pH, Arterial 7.27(L) 7.35 - 7.45 LAB HEMATOLOGY METHOD 07/09/2025 12:00 AM EDT [facility] pCO2, Arterial 53(H) 35 - 48 mmHg LAB HEMATOLOGY METHOD 07/09/2025 12:00 AM EDT [facility] pO2, Arterial 114(H) 83 - 108 mmHg LAB HEMATOLOGY METHOD 07/09/2025 12:00 AM EDT [facility] SO2, Measured, Arterial 99(H) 94 - 98 % LAB HEMATOLOGY METHOD 07/09/2025 12:00 AM EDT [facility] Base Excess, Arterial -3.1(L) -2.0 - 3.0 mmol/L LAB HEMATOLOGY METHOD 07/09/2025 12:00 AM EDT [facility] Bicarbonate, Calculated, Arterial 24 22 - 26 mmol/L LAB HEMATOLOGY METHOD 07/09/2025 12:00 AM EDT [facility] Hematocrit, Whole Blood 31.0(L) 34.0 - 45.0 % LAB HEMATOLOGY METHOD 07/09/2025 12:00 AM EDT [facility] Sodium, Whole Blood 134(L) 136 - 145 mmol/L LAB HEMATOLOGY METHOD 07/09/2025 12:00 AM EDT [facility] Potassium, Whole Blood 3.5(L) 3.6 - 4.9 mmol/L LAB HEMATOLOGY METHOD 07/09/2025 12:00 AM EDT [facility] Chloride, Whole Blood 101 97 - 107 mmol/L LAB HEMATOLOGY METHOD 07/09/2025 12:00 AM EDT [facility] Glucose, Whole Blood 315(H) 74 - 99 mg/dL LAB HEMATOLOGY METHOD 07/09/2025 12:00 AM EDT [facility] Ionized Calcium, Whole Blood 5.1 4.6 - 5.1 mg/dL LAB HEMATOLOGY METHOD 07/09/2025 12:00 AM EDT [facility] Lactate, Arterial, Whole Blood 1.7(H) 0.5 - 1.6 mmol/L LAB HEMATOLOGY METHOD 07/09/2025 12:00 AM EDT [facility] Blood Arterial blood specimen / Unknown Arterial Puncture / Unknown 07/08/2025 11:50 PM EDT 07/08/2025 11:59 PM EDT us Richard Betts CRNA LAB BLOOD ORDERABLES Sarah bennett Result [facility] [address] [place] [address] * (ABNORMAL) POCT glucose meter (07/08/2025 11:49 [...] Comment 07/08/2025 11:50 PM EDT [facility] LAB School Nurse ID Mary Cotto 07/08/2025 11:50 PM EDT [facility] LAB Device ID [id number] 07/08/2025 11:50 PM EDT [facility] Specimen Type POC Arterial 07/08/2025 11:50 PM EDT [facility] Blood Arterial blood specimen / Unknown 07/08/2025 11:49 PM EDT 07/08/2025 11:50 PM EDT Luanne Crawford MD LAB POINT OF CARE TEST DOCKED DEVICE UNSOLICITED RESULTS Final Result [facility] [address] [place] [address] * (ABNORMAL) Tissue Culture and Gram Stain (07/08/2025 10:48 PM EDT) [facility] Culture Light Growth 07/13/2025 1:13 PM EDT [facility] Culture 1+ Schaalia turicensis (formerly known as Actinomyces turicensis)(A) 07/13/2025 1:13 PM EDT [facility] Comment: The organism value for this result has been updated. These results have been appended to the previously preliminary verified report. This is a corrected result. Previous organism was Gram positive anthony on 07/11/2025 at 1052 EDT. Culture 1+ Staphylococcus hominis(A) 07/13/2025 1:13 PM EDT [facility] Comment: This isolate has been identified using the FDA Approved [employer] System The organism value for this result has been updated. These results have been appended to the previously preliminary verified report. Gram Stain Result Few Polymorphonuclear leukocytes(A) 07/13/2025 1:13 PM EDT [facility] Gram Stain Result Numerous Gram negative rods(A) 07/13/2025 1:13 PM EDT [facility] Gram Stain Result Few Gram positive cocci in pairs(A) 07/13/2025 1:13 PM EDT [facility] Tissue Topography unknown / Unknown 07/08/2025 10:48 PM EDT 07/09/2025 12:14 AM EDT Comment:Pre-op diagnosis: Necrotizing fasciitis (CMS/HCC) [M72.6] us Luanne Crawford MD LAB MICROBIOLOGY - GENERAL ORDERABLES Final Result [facility] [address] [place] [address] * Transfuse fresh frozen plasma (07/08/2025 10:35 PM EDT) Richard Betts CRNA BLOOD TRANSFUSION ORDERAB LES Final Result * Transfuse RBC (07/08/2025 10:29 PM EDT) Richard Betts ECONOMICS PROFESSOR BLOOD TRANSFUSION ORDERAB LES Final Result * (ABNORMAL) Blood gas panel, arterial (07/08/2025 10:08 PM EDT) pH, Arterial 7.28(L) 7.35 - 7.45 LAB HEMATOLOGY METHOD 07/08/2025 10:15 PM EDT [facility] pCO2, Arterial 50(H) 35 - 48 mmHg LAB HEMATOLOGY METHOD 07/08/2025 10:15 PM EDT [facility] pO2, Arterial 121(H) 83 - 108 mmHg LAB HEMATOLOGY METHOD 07/08/2025 10:15 PM EDT [facility] SO2, Measured, Arterial 99(H) 94 - 98 % LAB HEMATOLOGY METHOD 07/08/2025 10:15 PM EDT [facility] Base Excess, Arterial -3.6(L) -2.0 - 3.0 mmol/L LAB HEMATOLOGY METHOD 07/08/2025 10:15 PM EDT [facility] Bicarbonate, Calculated, Arterial 23 22 - 26 mmol/L LAB HEMATOLOGY METHOD 07/08/2025 10:15 PM EDT [facility] Hematocrit, Whole Blood 29.9(L) 34.0 - 45.0 % LAB HEMATOLOGY METHOD 07/08/2025 10:15 PM EDT [facility] Sodium, Whole Blood 133(L) 136 - 145 mmol/L LAB HEMATOLOGY METHOD 07/08/2025 10:15 PM EDT [facility] Potassium, Whole Blood 3.5(L) 3.6 - 4.9 mmol/L LAB HEMATOLOGY METHOD 07/08/2025 10:15 PM EDT [facility] Chloride, Whole Blood 101 97 - 107 mmol/L LAB HEMATOLOGY METHOD 07/08/2025 10:15 PM EDT [facility] Glucose, Whole Blood 351(H) 74 - 99 mg/dL LAB HEMATOLOGY METHOD 07/08/2025 10:15 PM EDT [facility] Ionized Calcium, Whole Blood 4.5(L) 4.6 - 5.1 mg/dL LAB HEMATOLOGY METHOD 07/08/2025 10:15 PM EDT [facility] Lactate, Arterial, Whole Blood 2.1(H) 0.5 - 1.6 mmol/L LAB HEMATOLOGY METHOD 07/08/2025 10:15 PM EDT [facility] Blood Arterial blood specimen / Unknown 07/08/2025 10:08 PM EDT 07/08/2025 10:14 PM EDT Comment:Pre-op diagnosis: Necrotizing fasciitis (CMS/HCC) [M72.6] us Luanne Crawford MD LAB BLOOD ORDERABLES Final Result [facility] [address] [place] [address] * Surgical Pathology Exam (07/08/2025 10:07 PM EDT) Case Report Surgical Pathology Case: [id number] Authorizing Provider: Luanne Crawford MD Collected: 07/08/20252206 Ordering Location: [facility] A OPERATING ROOM Received: 07/09/2025 0701 Pathologist: Boaz Fernandez MD Specimens: A) - Other (specify site), saphenous vein B) - Other (specify site), right leg 07/10/2025 3:45 PM EDT [facility] Final Diagnosis A. SAPHENOUS VEIN SEGMENT, REMOVAL: - SCLEROTIC VEIN WITH ADVENTITIAL INFLAMMATION. B. RIGHT LEG TISSUE DEBRIDEMENT: - ACUTE NECROTIZING FASCIITIS OF SKIN AND SOFT TISSUE. 07/10/2025 3:45 PM EDT [facility] at 1545 EDT Clinical Information Necrotizing fasciitis; post recent boil self popped wound. 50 y.o. female with PMH of DM, hidradenitis supparativa, current smoker (1.5 ppd), UTI, depression, anxiety, asthma, HLD, Celiac disease, 07/10/2025 3:45 PM EDT [facility] Gross Description A. SAPHENOUS VEIN Specimen is received fresh and placed in formalin labeled saphenous vein. Received is a segment of vessel that measures 8.5 cm in length and up to 0.7 cm in diameter. Specimen is sectioned to reveal a pinpoint lumen with dried blood. Product Operations Associate sections are taken and submitted in cassette A1. Cold Time: 8h 56m Abhishek Baptiste MD B. RIGHT LEG Specimen is received fresh labeled right leg. Received are numerous fragments of skin and underlying soft tissue that measure in aggregate 25.0 x 25.0 x 7.5 cm. Scattered areas of skin and soft tissue notable for being green-black, foul-smelling and extensively necrotic. Product Operations Associate sections are taken and submitted in cassettes B1-B2. Abhishek Baptiste MD 07/10/2025 3:45 PM EDT [facility] Note: A resident was involved in the service. I attest I examined the relevant preparations for the specimens and confirmed the diagnosis or interpretation. 07/10/2025 3:45 PM EDT [facility] Tissue Topography unknown / Unknown 07/08/2025 10:07 PM EDT 07/09/2025 7:40 AM EDT Comment:Pre-op diagnosis: Necrotizing fasciitis (CMS/HCC) [M72.6] Tissue specimen (specimen) Topography unknown / Unknown 07/08/2025 10:49 PM EDT 07/09/2025 7:40 AM EDT Comment:Pre-op diagnosis: Necrotizing fasciitis (CMS/HCC) [M72.6] Luanne Crawford MD LAB PATHOLOGY ORDERABLES F inal Result [facility] [address] [place] [address] * Transfuse fresh frozen plasma (07/08/2025 10:04 PM EDT) us Richard N Yongbang ECONOMICS PROFESSOR BLOOD TRANSFUSION ORDERAB LES Final Result * Transfuse fresh frozen plasma: 1 Units (07/08/2025 10:04 PM EDT) Richard N Yongbang ECONOMICS PROFESSOR BLOOD TRANSFUSION ORDERAB LES Final Result * Transfuse RBC (07/08/2025 9:41 PM EDT) Richard N Yongbang ECONOMICS PROFESSOR BLOOD TRANSFUSION ORDERAB LES Final Result * Transfuse RBC: 1 Units (07/08/2025 9:41 PM EDT) Richard N Yongbang ECONOMICS PROFESSOR BLOOD TRANSFUSION ORDERAB LES Final Result * Prepare Fresh Frozen Plasma: 2 Units (07/08/2025 9:24 PM EDT) Product Code Q1800R62 BLOO D BANK Dispense Status Transfused BLOOD BANK Blood Expiration Date [id number] BLOOD BANK Unit Number [id number] CH B LOOD BANK Product Blood Type 5100 BLOOD BANK Blood Type O+ CH BLOOD BANK Product Code [id number] BLOO D BANK Dispense Status Transfused BLOOD BANK Blood Expiration Date [id number] BLOOD BANK Unit Number [id number] CH B LOOD BANK Product Blood Type 5100 BLOOD BANK Blood Type O+ CH BLOOD BANK Blood Venous blood specimen / Unknown Richard N Yongbang ECONOMICS PROFESSOR BLOOD BANK PRODUCT ORDERA BLES Final Result [facility] BANK [address] [place] [address], [place] * Prepare Leukocyte Reduced RBC: 2 Units (07/08/2025 9:23 PM EDT) Product Code [id number] CH BLOO D BANK Dispense Status Transfused CH BLOOD BANK Blood Expiration Date BLOOD BANK Unit Number [id number] CH B LOOD BANK Product Blood Type 5100 CH BLOOD BANK Blood Type O+ CH BLOOD BANK Crossmatch Compatible CH BLOOD BANK Product Code [id number] CH BLOO D BANK Dispense Status Transfused CH BLOOD BANK Blood Expiration Date BLOOD BANK Unit Number [id number] CH B LOOD BANK Product Blood Type 5100 CH BLOOD BANK Blood Type O+ CH BLOOD BANK Crossmatch Compatible CH BLOOD BANK Other us Richard Betts CRNA BLOOD BANK PRODUCT ORDERA BLES Final Result BLOOD BANK [address] [place] [address], * (ABNORMAL) Abscess Culture and Gram Stain (07/08/2025 9:06 PM EDT) Culture Light Growth 07/13/2025 1:13 PM EDT [facility] Culture 1+ Mixed skin silvestre(A) 07/13/2025 1:13 PM EDT [facility] Comment: The organism value [...] as Actinomyces turicensis)(A) 07/13/2025 1:13 PM EDT [facility] Comment: This result was determined by [employer]DI tof Mass spectrometry. This assay was developed and its performance characteristics determined by [email or web address] as appropriate for clinical purposes. [...] Gram positive cocci(A) 07/13/2025 1:13 PM EDT [facility] Gram Stain Result Few Gram variable rods(A) 07/13/2025 1:13 PM EDT [facility] Gram Stain Result Moderate Gram positive rods(A) 07/13/2025 1:13 PM EDT [facility] Gram Stain Result Numerous Gram negative rods(A) 07/13/2025 1:13 PM EDT [facility] Gram Stain Result Numerous Gram negative coccobacilli(A) 07/13/2025 1:13 PM EDT [facility] Gram Stain Result Moderate Polymorphonuclear leukocytes(A) 07/13/2025 1:13 PM EDT [facility] Swab Topography unknown / Unknown 07/08/2025 9:06 PM EDT 07/08/2025 9:15 PM EDT Comment:Pre-op diagnosis: Necrotizing fasciitis (CMS/HCC) [M72.6] us Luanne Crawford MD LAB MICROBIOLOGY - GENERAL ORDERABLES Final Result [facility] [address] [place] [address] * (ABNORMAL) POCT arterial blood gas gem (07/08/2025 8:51 PM EDT) pH, Arterial 7.28(L) 7.35 - 7.45 07/08/2025 8:53 PM EDT [facility] pCO2, Arterial 53(H) 35 - 48 mm Hg 07/08/2025 8:53 PM EDT [facility] pO2, Arterial 152(H) 83 - 108 mm Hg 07/08/2025 8:53 PM EDT [facility] SO2, Arterial 99(H) 94 - 98 % 07/08/2025 8:53 PM EDT [facility] Base Excess, Arterial -2.3(L) -2 - 3 mmol/L 07/08/2025 8:53 PM EDT [facility] HCO3, Arterial 24.9 22 - 26 mmol/L 07/08/2025 8:53 PM EDT [facility] Total Hemoglobin, Arterial, Whole Blood 10.9(L) 11.2 - 15.7 g/dL 07/08/2025 8:53 PM EDT [facility] Hematocrit, Arterial 33.0(L) 34.0 - 45.0 % 07/08/2025 8:53 PM EDT [facility] Sodium, Arterial 131(L) 136 - 145 mmol/L 07/08/2025 8:53 PM EDT [facility] Potassium, Arterial 3.8 3.6 - 4.9 mmol/L 07/08/2025 8:53 PM EDT [facility] Chloride, Whole Blood 98 97 - 107 mmol/L 07/08/2025 8:53 PM EDT [facility] Glucose, Arterial 418(H) 74 - 99 mg/dL 07/08/2025 8:53 PM EDT [facility] Ionized Calcium, Arterial 4.9 4.6 - 5.1 mg/dL 07/08/2025 8:53 PM EDT [facility] Lactate, Arterial 1.6 0.5 - 1.6 mmol/L 07/08/2025 8:53 PM EDT [facility] Body Temperature 37.0 Celsius 07/08/2025 8:53 PM EDT [facility] pH, Temp Corrected, Arterial 7.28(L) 7.35 - 7.45 07/08/2025 8:53 PM EDT [facility] pCO2, Temp Corrected, Arterial 53(H) 35 - 48 mm Hg 07/08/2025 8:53 PM EDT [facility] pO2, Temp Corrected, Arterial 152(H) 83 - 108 mm Hg 07/08/2025 8:53 PM EDT [facility] School Nurse ID Yadi Goel 07/08/2025 8:53 PM EDT [facility] Blood, Arterial Whole blood specimen / Unknown 07/08/2025 8:51 PM EDT 07/08/2025 8:53 PM EDT us Luanne Crawford MD LAB POINT OF CARE TEST DOCKED DEVICE UNSOLICITED RESULTS Final Result [facility] [address] [place] [address] * ED HIV 1/2 Antibody/Antigen Screen w/Reflex to HIV 1/2 Differentiation (07/08/2025 6:14 PM EDT) [facility] HIV 1 & 2 Antibody/Antigen Screen Non Reactive Non Reactive 07/08/2025 7:12 PM EDT [facility] Comment:Screening for HIV 1 & 2 antibodies, and P24 antigen is NONREACTIVE. No confirmatory testing is required. Blood Venous blood specimen / Unknown Venipuncture / Unknown 07/08/2025 6:14 PM EDT 07/08/2025 6:30 PM EDT My Charles MD LAB BLOOD ORDERABLES Fi nal Result Performing Organization Address City/[facility]/ZIP Co de Phone Number [facility] [address] [place] [address] * Hepatitis C Antibody - ED (07/08/2025 6:14 PM EDT) [facility] Hepatitis C Antibody Negative Negative 07/08/2025 7:[address] [facility] Blood Venous blood specimen / Unknown Venipuncture / Unknown 07/08/2025 6:14 PM EDT 07/08/2025 6:30 PM EDT My Charles MD LAB BLOOD ORDERABLES Fi nal Result Performing Organization Address City/[facility] [place] [address] * (ABNORMAL) C-Reactive protein (07/08/2025 6:14 PM EDT) [facility] CRP, Plasma 462.2(H) <=8.0 mg/L 07/08/2025 7:18 PM EDT [facility] Blood Venous blood specimen / Unknown Venipuncture / Unknown 07/08/2025 6:14 PM EDT 07/08/2025 6:23 PM EDT Narrative [facility] - 07/08/2025 7:18 PM EDT This CRP test is appropriate for assessment of infection, systemic inflammation and/or tissue injury. To assess cardiovascular disease risk order high sensitivity CRP (CRPH). My Charles MD LAB BLOOD ORDERABLES Fi nal Result Performing Organization Address City/[facility]/ZIP Co de Phone Number [facility] [address] [place] [address] * (ABNORMAL) Lactic acid, venous (07/08/2025 6:14 PM EDT) Lactate, Venous, Whole Blood 2.6(H) 0.5 - 2.2 mmol/L LAB HEMATOLOGY METHOD 07/08/2025 6:29 PM EDT [facility] Blood Venous blood specimen / Unknown Venipuncture / Unknown 07/08/2025 6:14 PM EDT 07/08/2025 6:23 PM EDT My Charles MD LAB BLOOD ORDERABLES Fi nal Result Performing Organization Address [facility] Co de Phone Number [facility] [address] [place] [address] * Type and screen (07/08/2025 6:14 PM [...] ORD ERABLES Final Result Performing Organization Address City/[facility]/ZIP Co de Phone Number BLOOD BANK [address] [place] [address], [place] * (ABNORMAL) PT-INR (07/08/2025 6:14 PM EDT) Prothrombin Time 15.3(H) 12.0 - 14.3 sec 07/08/2025 6:56 PM EDT [facility] INR 1.2(H) 0.9 - 1.1 07/08/2025 6:56 PM EDT [facility] Blood Venous blood specimen / Unknown Venipuncture / Unknown 07/08/2025 6:14 PM EDT 07/08/2025 6:23 PM EDT Narrative [facility] - 07/08/2025 6:56 PM EDT OPTIMAL INR RANGES FOR PATIENT ON ORAL ANTICOAGULANT THERAPY Prevention of venous thromboembolism INR 2.0 to 3.0 In patients with heart disease: Atrial fibrillation INR 2.0 to 3.0 Valvular heart disease INR 2.0 to 3.0 Tissue heart valves INR 2.0 to 3.0 Mechanical prosthetic valves INR 2.5 to 3.5 Prevention of recurrent RI INR 2.5 to 3.5 us My Charles MD LAB BLOOD ORDERABLES Fi nal Result [facility] [address] [place] [address] * (ABNORMAL) CBC w/diff (07/08/2025 6:14 PM EDT) WBC Count 26.15(H) 3.70 - 10.30 10*3/uL LAB HEMATOLOGY METHOD 07/08/2025 9:04 PM EDT [facility] RBC Count 3.97 3.90 - 5.20 10*6/uL LAB HEMATOLOGY METHOD 07/08/2025 9:04 PM EDT [facility] HGB 10.9(L) 11.2 - 15.7 g/dL LAB HEMATOLOGY METHOD 07/08/2025 9:04 PM EDT [facility] HCT 33.6(L) 34.0 - 45.0 % LAB HEMATOLOGY METHOD 07/08/2025 9:04 PM EDT [facility] Platelet Count 329 155 - 369 10*3/uL LAB HEMATOLOGY METHOD 07/08/2025 9:04 PM EDT [facility] MCV 85 79 - 98 fL LAB HEMATOLOGY METHOD 07/08/2025 9:04 PM EDT [facility] MCH 27.5 26.0 - 32.0 pg LAB HEMATOLOGY METHOD 07/08/2025 9:04 PM EDT [facility] MCHC 32.4 30.7 - 35.5 g/dL LAB HEMATOLOGY METHOD 07/08/2025 9:04 PM EDT [facility] RDW 17.3(H) 11.5 - 14.5 % LAB HEMATOLOGY METHOD 07/08/2025 9:04 PM EDT [facility] MPV 10.1 8.8 - 12.5 fL LAB HEMATOLOGY METHOD 07/08/2025 9:04 PM EDT [facility] nRBC 0.0 <=0.0 per 100 WBCs LAB HEMATOLOGY METHOD 07/08/2025 9:04 PM EDT [facility] Differential Type Automated LAB HEMATOLOGY METHOD 07/08/2025 9:04 PM EDT [facility] Neutrophils % 91 % LAB HEMATOLOGY METHOD 07/08/2025 9:04 PM EDT [facility] Lymphocytes % 4 % LAB HEMATOLOGY METHOD 07/08/2025 9:04 PM EDT [facility] Monocytes % 4 % LAB HEMATOLOGY METHOD 07/08/2025 9:04 PM EDT [facility] Eosinophils % 0 % LAB HEMATOLOGY METHOD 07/08/2025 9:04 PM EDT [facility] Basophils % 0 % LAB HEMATOLOGY METHOD 07/08/2025 9:04 PM EDT [facility] Immature Granulocytes % 1 % LAB HEMATOLOGY METHOD 07/08/2025 9:04 PM EDT [facility] Neutrophils Absolute 23.61(H) 1.60 - 6.10 10*3/uL LAB HEMATOLOGY METHOD 07/08/2025 9:04 PM EDT [facility] Lymphocytes Absolute 1.15(L) 1.20 - 3.90 10*3/uL LAB HEMATOLOGY METHOD 07/08/2025 9:04 PM EDT [facility] Monocytes Absolute 0.98(H) 0.30 - 0.90 10*3/uL LAB HEMATOLOGY METHOD 07/08/2025 9:04 PM EDT [facility] Eosinophils Absolute 0.04 0.00 - 0.50 10*3/uL LAB HEMATOLOGY METHOD 07/08/2025 9:04 PM EDT [facility] Basophils Absolute 0.09 0.00 - 0.10 10*3/uL LAB HEMATOLOGY METHOD 07/08/2025 9:04 PM EDT [facility] Immature Granulocytes Absolute 0.25(H) 0.00 - 0.06 10*3/uL LAB HEMATOLOGY METHOD 07/08/2025 9:04 PM EDT [facility] Blood Venous blood specimen / Unknown Venipuncture / Unknown 07/08/2025 6:14 PM EDT 07/08/2025 6:23 PM EDT Narrative [facility] - 07/08/2025 9:04 PM EDT Therapeutic decision making should be based on absolute values, rather than percentages. us My Charles MD LAB BLOOD ORDERABLES Fi nal Result [facility] [address] [place] [address] * (ABNORMAL) CMP (07/08/2025 6:14 PM EDT) Glucose, Plasma 411(H) 74 - 99 mg/dL 07/08/2025 7:18 PM EDT [facility] BUN, Plasma 33(H) 7 - 21 mg/dL 07/08/2025 7:18 PM EDT [facility] Creatinine, Plasma 1.99(H) 0.60 - 1.10 mg/dL 07/08/2025 7:18 PM EDT [facility] BUN/Creatinine Ratio 17 07/08/2025 7:18 PM EDT [facility] Sodium, Plasma 131(L) 136 - 145 mmol/L 07/08/2025 7:18 PM EDT [facility] Potassium, Plasma 4.0 3.6 - 4.9 mmol/L 07/08/2025 7:18 PM EDT [facility] Chloride, Plasma 93(L) 97 - 107 mmol/L 07/08/2025 7:18 PM EDT [facility] CO2, Plasma 22 22 - 29 mmol/L 07/08/2025 7:18 PM EDT [facility] Anion Gap 16 6 - 16 mmol/L 07/08/2025 7:18 PM EDT [facility] Total Calcium, Plasma 9.3 8.9 - 10.2 mg/dL 07/08/2025 7:18 PM EDT [facility] Total Protein 6.0(L) 6.3 - 7.9 g/dL 07/08/2025 7:18 PM EDT [facility] Albumin, Plasma 2.6(L) 3.5 - 5.2 g/dL 07/08/2025 7:18 PM EDT [facility] AST, Plasma 16 10 - 35 U/L 07/08/2025 7:18 PM EDT [facility] ALT, Plasma 15 10 - 35 U/L 07/08/2025 7:18 PM EDT [facility] Alkaline Phosphatase, Plasma 165(H) 35 - 104 U/L 07/08/2025 7:18 PM EDT [facility] Total Bilirubin, Plasma 0.4 0.2 - 1.1 mg/dL 07/08/2025 7:18 PM EDT [facility] eGFRcr 30.3 mL/min/1.7 3m*2 07/08/2025 7:18 PM EDT [facility] Comment:Reported eGFRcr in m L/min/1.73m2 is based the CKD-EPI 2020 equation that does not use a race coefficient. Blood Venous blood specimen / Unknown Venipuncture / Unknown 07/08/2025 6:14 PM EDT 07/08/2025 6:23 PM EDT us My Charles MD LAB BLOOD ORDERABLES Fi nal Result [facility] [address] [place] [address] * [place] [facility], E/M 30-74 MINUTES (07/08/2025 5:58 [...] due to excess calories (CMS/HCC) Urge incontinence Necrotizing fasciitis (CMS/HCC) Necrotizing fasciitis documented in [...] nightly (2100 & 0300), First dose on Tomasa 07/11/25 at 2100, Until Discontinued, Routine ipratropium-albuterol (Duo-Neb) [...] Tomasa 07/11/25 at 2000, Until Discontinued, Routine Given 07/18/2025 [...] Josi Ann RN)1812 (Given - Provider: Josi nAn RN) 0038 (Given - Provider: Inessa Almazan [...] Provider: Marilee Wilson)1523 (Given - Provider: Marilee Wilson)2029 (Given - Provider: Naomi Nelson) 0338 (Given [...] Comment: no wv in place due to [facility] dc) polyethylene glycol (Miralax) packet 17 [...] Discontinued, Routine 0000 (Given - Provider: Eulalia J Estrada, RN)1245 (Canceled Entry - Provider: Josi Ann [...] documented as of this encounter Care Teams [employer] Relationship Specialty Start Date End Date Yenny Dhillon APRN [address] [phone] PCP - General 07/22/23 documented as of this encounter
--- OUTSIDE RECORDS SUMMARY | 2025-07-10 15:16 | XMS_ITS | Encounter Summary ---
Author Organization Healthcare Address [address] [place] [address] Care Team Providers Care Artist Relationship Manager Name Role Phone Yenny Dhillon APRN Primary Care Provider [phone] Reason for Visit * Auth/Cert (Routine) Specialty Diagnoses / Procedures Referred By Bharati t Referred To Contact Diagnoses Necrotizing fasciitis (CMS/HCC) Necrotizing Fascitis Brittany Crawford MD [address] [facility] [address] [place] [address] Phone: tel: fax: PAV A Inpatient [address] [place] [address] Phone: tel: Referral ID Status Reason Start Date Expiration Date Visits Re quested Visits Authorized [id number] 1 1 Encounter Details Date Type Department Care Team (Late st Contact Info) Description 07/10/2025 3:16 PM EDT Anesthesia Event [facility] OPERATING ROOM [address] [place] [address] Jason Douglas DO [address] [place] [address] Lisa Allen MD [address] [place], [place] [id number] Anesthesia Record Procedure Summary Procedure Name Responsible Anesthesiologist Anesthesia Start Time Anesthesia Stop Time DEBRIDEMENT, WOUND groin (Right) Jason Douglas DO 07/10/25 1516 07/10/25 1720 Events Date Time Event Comment 07/10/2025 1515 In Room 1516 An Start The patient was reevaluated immediately before sedation and remains eligible for anesthesia plan. 1516 An Start Data 1620 Proc Start 1648 Proc Fin 1650 An Extubation 1707 an stop data 1709 Out of Room 1720 Handoff to Receiving I compl eted my handoff to the receiving clinician during which we: 1. Identified the patient 2. Identified the responsible provider 3. Reviewed the pertinent medical history 4. Discussed the surgical course 5. Reviewed intra-op anesthesia management and issues during anesthesia 6. Set expectations for post-procedure period 7. Allowed opportunity for questions and acknowledgement of understanding. 1720 An Stop Meds Name Total midazolam (Versed) injection 1 mg/mL 2 m g rocuronium (ZeMuron) injection 10 mg/mL 50 mg ePHEDrine injection prefilled syringe 5 mg/mL 10 mg sugammadex (Bridion) injection 100 mg/mL 100 mg hydromorphone 20 mg in NS 100 mL infusio n (200 mcg/mL) 0.37 mg insulin regular in sodium ch loride 0.9 % 1 UNIT/ML infusion (Standard Insulin Protocol) 3.41 Units norepinephrine 8 mg/250 mL (0.032 mg/mL) infusion 30.53 mL vasopressin (Vasostrict) 20 Units in sodium chloride 0.9 % 100 mL (0.2 Units/mL) infusion 2.67 Units * Agents No agents on file. * Blood No blood administrations on file. Lines, Drains, and Airways Type Details Placement Removal Wound 07/08/25; 2108; Y; Y es; Infection; Necrotizing; Leg; Right, Upper, Inner 07/08/252108 by Ema Antoine RN Peripheral IV Placement Date: 12/01; Placement Time: 0000; Catheter Size: 18 G; Orientation: Right; Location: Antecubital; Removal Date: 07/11/25; Removal Time: 0805; Removal Reason: Leaking 07/08/25 0000 by Kadi Bustamante RN 07/11/25 0805 by Ayana Amato RN Peripheral IV Placement Date: 12/01; Placement Time: 1852; Catheter Size: 18 G; Orientation: Left; Location: Antecubital; Removal Date: 07/10/25; Removal Time: 2315; Removal Reason: Occluded 07/08/251851 by Kadi Bustamante RN 07/10/252315 by Cheyanne Briceño RN ETT Placement Date: 12/01; Placement Time: 2027 (created via procedure documentation); Mask Ventilation: 0; Technique: Direct laryngoscopy; Type: ETT - single; Single Lumen Tube Size: 7.5 mm; Cuffed: Yes; Laryngoscope: Davis; Blade Size: 2; Location: Oral; Grade View: Grade I; Insertion Attempts: 1; Placement Verification: Auscultation, Capnometry; Airway Comments: Atraumatic. No change to dentition. ; Placed by: KING; Removal Date: 07/10/25; Removal Time: 16507/08/252027 by Richard Betts CRNA 07/10/251649 by Ghanshyam Mena CRNA Urethral Catheter Placement Date: 12/01; Placement Time: 2033; Inserted by: KEYLA WHITFIELD; Type: Temperature probe; Size: 16 Fr.; Balloon Size: 10 mL; Urine Returned: Yes; Removal Date: 07/16/25; Removal Time: 114; Removal Reason: Per order 07/08/252033 by Ema Antoine RN 07/16/251144 by Denia Boo RN CVC Triple Lumen [...] 20 cm 07/08/252036 by Yadi Goel MD 07/12/251609 by Jeana Bear Arterial Line Placement Date: 01/01; Placement Time: 1200; Size: 16 G; Orientation: Left; Location: Radial; Site Prep: Chlorhexidine ; Technique: Ultrasound guidance; Inserted by: Provider; Insertion Attempts: 1; Securement: Sutured, Transparent dressing; Patient Tolerance: Tolerated well; Removal Date: 07/11/25; Removal Time: 527; Removal Reason: Per order 07/09/25 1200 by Jeana Bear 07/11/25 0528 by Cheyanne Briceño RN documented in this encounter Social History [...] Date of Assessment Author No Risk Indicated 07/11/2025 4:00 AM EDT Cheyanne Qiu RN * Question Answer Date of Assessment Author 1. Wish to be (Past 1 Month) No 07/11/2025 4:00 AM EDT Cheyanne Briceño RN 2. Non-Specific Active Suicidal Thoughts (Past 1 Month) No 07/11/2025 4:00 AM EDT Cheyanne Briceño RN 6. Suicidal Behavior (Lifetime) No 07/11/2025 4:00 AM EDT Cheyanne Briceño RN documented as of this encounter Miscellaneous Notes * Anesthesia Postprocedure Evaluation - Ghanshyam Mena CRNA - 07/10/2025 5:20 PM EDT Patient: Aslhey Brown Anesthesia Type: general Vitals Value Taken Time BP 113/59 07/10/25 17:20 Temp 98 07/10/25 17:20 Pulse 98 07/10/25 17:19 Resp 19 07/10/25 17:19 SpO2 95 07/10/25 17:20 Vitals shown include unfiled device data. Anesthesia Post Evaluation Patient location during evaluation: PACU Patient participation: complete - patient cannot participate Level of consciousness: sedated Pain management: adequate (pain score 0-3) Airway patency: natural airway Cardiovascular status: acceptable Respiratory status: acceptable Hydration status: euvolemic No notable events documented. * Anesthesia Preprocedure Evaluation - Jason Douglas DO - 07/09/2025 2:50 PM EDT Images from the original note were not included. /Procedure Information / Date/Time: 07/10/25 0800 Procedure: DEBRIDEMENT, WOUND groin (Right) Location: [facility] / [place] Surgeons: Dorcas Hennessy MD HPI Nedia R Rinehart is a 50 y.o. female with body mass index is 56.12 kg/m??. who presents with Necrotizing fasciitis (CMS/HCC) now for above procedure PMH: HTN, HLD, JOSEP, DMII, morbid obesity, COPD, seizures (h/o absence sz as a juvenile), Hidradenitis suppurativa, celiac disease AIRWAY HISTORY: Date Difficult Airway Blade Size ETT Size C-L Class Final Type Intubation Method 07/08/25 No 2 7.5 grade I - full view of glottis endotracheal airway direct laryngoscopy NPO STATUS: since MN except meds Activity Level/METS: <4 Type & Screen Expires: 07/11 Lab Results Component Value Date ABO O Positive 07/08/2025 ALLERGIES Allergies[1] MEDICATIONS Outpatient Current Outpatient Medications Medication Instructions budesonide-formoterol (Symbicort) 160-4.5 MCG/ACT inhaler 2 puffs, 2 times daily busPIRone (BUSPAR) 15 mg, 3 times daily cholecalciferol (Vitamin D-3) 5,000 Units tablet 1 tablet, Daily DULoxetine (CYMBALTA) 60 mg, Daily fluticasone (Flonase) 50 MCG/ACT nasal spray 1 spray, 2 times daily folic acid (FOLVITE) 1 mg, ZZ Daily RT lamoTRIgine (LAMICTAL XR) 100 mg, Daily Linzess 72 MCG capsule capsule Take 1 capsule by mouth daily before breakfast. loratadine (CLARITIN) 10 mg, Daily metoprolol succinate XL (TOPROL-XL) 100 mg, Daily mirabegron ER (MYRBETRIQ) 25 mg, Oral, Daily montelukast (SINGULAIR) 10 mg, Daily naproxen (NAPROSYN) 500 mg, 2 times daily with meals polycarbophil (EQ Fiber Therapy) 625 MG tablet 1 tablet, Daily rosuvastatin (CRESTOR) 20 mg, Daily valsartan-hydroCHLOROthiazide (Diovan-HCT) 320-12.5 MG tablet 1 tablet, ZZ Daily RT Vitamin E 180 MG (400 UNIT) capsule 1 tablet, Daily Scheduled Current Scheduled Medications[2] PRNs Current PRN Medications[3] SURGICAL HX: Surgical History[4] SOCIAL HX: Social History[5] OBJECTIVE DATA Blood pressure 112/70, pulse 81, temperature 37.1 ??C (98.8 ??F), resp. rate 13, height 1.778 m (5'10 ), weight 177 kg (391 lb 1.5 oz), SpO2 96%. LABS Lab Results Component Value Date WBC 17.64 (H) 07/10/2025 HGB 10.6 (L) 07/10/2025 HCT 33.3 (L) 07/10/2025 MCV 87 07/10/2025 PLT 309 07/10/2025 Lab Results Component Value Date CALCIUM 9.3 07/10/2025 BUN 22 (H) 07/10/2025 CREATININE 1.25 (H) 07/10/2025 BCR 18 07/10/2025 NA 134 (L) 07/10/2025 K 3.7 07/10/2025 CL 101 07/10/2025 CO2 25 07/10/2025 ANIONGAP 8 07/10/2025 aPTT Date Value Ref Range Status 07/08/2025 25 25 - 35 sec Final INR Date Value Ref Range Status 07/08/2025 1.2 (H) 0.9 - 1.1 Final Lab Results Component Value Date HGBA1C 7.5 (H) 07/09/2025 GLUCOSE 155 (H) 07/10/2025 ABG Lab Results Component Value Date [id number] 26 07/09/2025 LACTATE 0.9 07/09/2025 Lab Results Component Value Date PH 7.31 (L) 07/09/2025 PCO2 53 (H) 07/09/2025 PO2 153 (H) 07/09/2025 [id number] 100 (H) 07/09/2025 BASEEXC -0.4 07/09/2025 HCTSYR 30.6 (L) 07/09/2025 KSYR 3.4 (L) 07/09/2025 CLSYR 107 07/09/2025 GLUSYR 141 (H) 07/09/2025 CAION 4.9 07/09/2025 LACTATE 0.9 07/09/2025 EKG Encounter Date: 07/08/25 ECG Adult Result Value EKG DIAGNOSIS CLASS Abnormal Ventricular Rate 79 Atrial Rate 79 [place] Interval 188 QRSD Interval 90 QT Interval 354 QTC Interval 405 P [place] 44 R [place] 17 T Wave [place] 27 Diagnosis Sinus rhythm with frequent premature ventricular complexes Diagnosis Low voltage QRS Diagnosis Cannot rule out Anterior infarct , age undetermined Diagnosis Abnormal ECG *Note: Due to a large number of results and/or encounters for the requested time period, some results have not been displayed. A complete set of results can be found in Results Review. ECHO No echocardiogram results found for the past 12 months 07/09/25 0342 XR Chest 1 View (Final result) View Image Impression Support lines and tubes as above. Low lung volumes with hypoventilatory change. Physical Exam Airway Endotracheal tube in place Cardiovascular Rhythm: regular Rate: normal Comments: PVCs Dental Pulmonary (+) decreased breath sounds Neurological unable to assess Skin Skin: warm and dry Musculoskeletal Extremities Anesthesia Plan ASA 4 Plan was reviewed with: MANAGER E LEARNING Anesthesia technique(s) discussed with the patient/family: general Anesthesia plan agreed upon was: general Anesthetic plan and risks discussed with healthcare power of real estate attorney. Use of blood products discussed with healthcare power of real estate attorney who consented to blood products. ROS Anesthesia: history of previous anesthesia and [...] the comment field Makes her mean [2] acetaminophen, 1,000 mg, Nasogastric, q6h MARIBELL cefepime, 2 g, Intravenous, q8h DULoxetine, 60 mg, Nasogastric, Daily enoxaparin, 40 mg, Subcutaneous, BID famotidine, 20 mg, Intravenous, q12h ipratropium-albuterol, 3 mL, Nebulization, q6h RT lamoTRIgine, 50 mg, Nasogastric, BID linezolid, 600 mg, Intravenous, q12h methocarbamol, 750 mg, Nasogastric, q6h MARIBELL metroNIDAZOLE, 500 mg, Nasogastric, q8h mupirocin, 1 Application, Each Nostril, BID rosuvastatin, 20 mg, Nasogastric, Nightly sodium chloride, 10 mL, Intravenous, q12h [3] PRN medications: albuterol, glucose OR dextrose 10 % OR dextrose 10 % OR glucagon (human recombinant), HYDROmorphone OR HYDROmorphone, insulin regular, oxyCODONE OR oxyCODONE,sodium chloride, sodium chloride [4] Past Surgical History: Procedure Laterality Date CARPAL TUNNEL RELEASE 2 carpal tunnel surgeries - Aug CHOLECYSTECTOMY 1994 HAND SURGERY Left 2022 carpal tunnel HYSTERECTOMY 2005 TONSILECTOMY, ADENOIDECTOMY, BILATERAL MYRINGOTOMY AND TUBES 1991 [5] Social History Tobacco Use Smoking status: Every Day Current packs/day: 1.00 Types: Cigarettes Smokeless tobacco: Never Vaping Use Vaping status: Never Used Substance Use Topics Alcohol use: Not Currently Drug use: Yes Types: Marijuana documented in this encounter Plan of Treatment Upcoming Encounters Date Type Department Care Team (Late st Contact Info) Description 08/20/2025 9:00 AM EDT Office Visit Medical Office Building Urology [address], [address] [place] [address] Marj Matamoros, CLIENT SUPPORT COORDINATOR [address] [place] [address] 08/20/2025 10:30 AM EDT Office Visit [facility] General Surgery [address], [address] [place] [address] Lilliana Morfin, CLIENT SUPPORT COORDINATOR [address] [place] [address] documented as of this encounter Visit Diagnoses Not on filedocumented in this encounter Administered Medications Inactive Administered Medications - up to 3 most recent administrations Medication Order MAR Action Action Date Dose Rate Site ePHEDrine Sulfate (Akovaz) injection Intravenous, As needed, Starting on Tue07/10/25 at 1621, Until Tue07/10/25 at 1720, Routine, Anesthesia Intraprocedure Given 07/10/2025 4:21 PM EDT 10 mg hydromorphone 20 mg in NS 100 mL infusion (200 mcg/mL) 0.25-2 mg/hr (1.25-10 mL/hr), 0.2 mg/mL, Intravenous, Titrated, Starting on Tue07/09/25 at 0015, Until Tue07/10/25 at 1707, Routine Continued by Anesthesia 07/10/2025 3:16 PM EDT 0.25 mg/hr 1.25 mL/hr Rate/Dose Verify 07/10/2025 3:00 PM EDT 0.25 mg/hr 1.25 mL /hr Rate/Dose Verify 07/10/2025 2:00 PM EDT 0.25 mg/hr 1.25 mL /hr insulin regular in sodium chloride 0.9 % 1 UNIT/ML infusion (Standard Insulin Protocol) 0.5-30 Units/hr (0.5-30 mL/hr), Intravenous, Titrated, Starting on Tue07/08/25 at 2145, Until Tue07/11/25 at 1820, Routine Rate/Dose Verify 07/11/2025 6:00 PM EDT 0.64 Units/hr 0.64 mL/hr Rate/Dose Verify 07/11/2025 4:16 PM EDT 0.64 Units/hr 0.64 mL/hr Continued from OR 07/11/2025 4:00 PM EDT 0.64 Units/hr 0.6 4 mL/hr midazolam (Versed) injection Intravenous, As needed, Starting on Tue07/10/25 at 1515, Until Tue07/10/25 at 1720, Routine, Anesthesia Intraprocedure Given 07/10/2025 3:15 PM EDT 2 mg norepinephrine 8 mg/250 mL (0.032 mg/mL) infusion 0-0.4 mcg/kg/min 177 kg (0-132.75 mL/hr), 0.032 mg/mL, Intravenous, Titrated, Starting on Tue07/10/25 at 0900, Until Tue07/12/25 at 0624, STAT Rate/Dose Change 07/11/2025 2:34 PM EDT 0.01 mcg/kg/min 3.319 mL/hr Continued by Anesthesia 07/11/2025 2:12 PM EDT 0.02 mcg/kg /min 6.638 mL/hr Rate/Dose Verify 07/11/2025 2:00 PM EDT 0.01 mcg/kg/min 3. 32 mL/hr rocuronium (ZeMuron) injection Intravenous, As needed, Starting on Tue07/10/25 at 1542, Until Tue07/10/25 at 1720, Routine, Anesthesia Intraprocedure Given 07/10/2025 3:42 PM EDT 50 mg sugammadex (Bridion) 100 MG/ML injection Intravenous, As needed, Starting on Tue07/10/25 at 1648, Until Tue07/10/25 at 1720, Routine, Anesthesia Intraprocedure Given 07/10/2025 4:48 PM EDT 100 mg vasopressin (Vasostrict) 20 Units in sodium chloride [...] Units/min 9 mL/hr documented in this encounter Additional Health Concerns Assessment Noted Time PHQ-9 Depression Total Score: 16 023 9:36 AM EDT A fall risk assessment has been complete d for the patient 08/31/2023 9:38 AM EDT A Body Mass Index follow-up plan has been documented for the patient 07/19/2025 10:51 AM EDT documented as of this encounter Care Teams Artist Relationship Manager Relationship Specialty Start Date End Date Yenny Dhillon APRN [address] [place] [address] PCP - General 07/22/23 documented as of this encounter
--- OUTSIDE RECORDS SUMMARY | 2025-07-11 13:50 | XMS_ITS | Encounter Summary ---
Author Organization Healthcare Address [address] [place] [address] Care Team Providers Care Information Systems Manager Name Role Phone Alejo Yenny Lit CASTRO Primary Care Provider [phone] Reason for Visit * Reason Comments Wound Check * Auth/Cert (Routine) Specialty Diagnoses / Procedures Referred By Bharati wiggins Referred To Contact Diagnoses Necrotizing fasciitis ([facility]/HCC) Necrotizing Fascitis Luanne Crawford MD [address] [address] Phone: tel: fax: PAV A Inpatient [address] [place] [address] Phone: tel: Referral ID Status Reason Start Date Expiration Date Visits Re quested Visits Authorized [id number] 1 1 Encounter Details Date Type Department Care Team (Late st Contact Info) Description 07/11/2025 1:50 PM EDT - 07/11/2025 3:20 PM EDT Surgery [facility] A OPERATING ROOM [address] [place] [address] Dorcas Hennessy MD [address] [address] APPLICATION OR REPLACEMENT, WOUND VAC Surgery Details Date/Time Status Location OR Service Patient Class Case Class Case Type Trauma Case? 07/11/2025 1:50 PM Posted [facility] OR PAVA OR 14 General Surgery Inpatient E-Electi ve Panel 1 Procedure LRB Anes Op Region Wound Class Comments APPLICATION OR REPLACEMENT, WOUND VAC Right Choice Groin Class IV/ Dirty or Infected Surgeon Surgeon Role Service Panel Shelby Whittington MD Fellow 1 Janell Cross MD Resident - Assisting 1 Dorcas Hennessy MD Primary General Surgery 1 documented in this encounter Social History [...] Sign Reading Time Taken Comments Blood Pressure 120/68 07/11/2025 1:50 PM EDT Pulse 99 07/11/2025 2:00 PM EDT Temperature 37.2 C (99 F) 07/11/2025 2:00 PM EDT Respiratory Rate 19 07/11/2025 2:00 PM EDT Oxygen Saturation 91% 07/11/2025 2:00 PM EDT Inhaled Oxygen Concentration - - Weight 177 kg (391 lb 1.5 oz) 07/08/2025 6:05 PM EDT Height 177.8 cm (5' 10 ) 07/09/2025 7:20 PM EDT Body Mass Index 51.1 07/09/2025 7:20 PM EDT documented in this encounter Functional Status * Calculated C-SSRS Risk Score (Lifetime/Recent) Answer Date of Assessment Author No Risk Indicated 07/11/2025 8:00 AM EDT Ayana Amato RN * Question Answer Date of Assessment Author 1. Wish to be (Past 1 Month) No 025 8:00 AM ROLANDT Ayana Amato, RN 2. Non-Specific Active Suici silvia Thoughts (Past 1 Month) No 07/11/2025 8:00 AM ROLANDT Ayana Amato, RN 6. Suicidal Behavior (Lifetime) No 8:00 AM EDT Ayana Amato, RN documented as of this encounter Discharge [...] dressing in place, sutures removed on rounds. [facility] can re- apply negative pressurewound therapy: [...] please call our General Surgery Clinic at [phone]. If there are questions or concerns after discharge from the hospital, call Radha Ugalde, Nurse Coordinator between 7am-3pm at [phone]. If it is after hours, weekends, and holidays please call [phone] and ask for the resident manager mission for Emergency General Surgery. Medication requests should be made between the hours of 9:00 AM to 3:00 PM Tuesday thru Tuesday. Please note that based upon recent changes to [place] law related to prescribing opioid pain medications, [...] Outcome: Met Intervention: Promote Activity and Functional [place] Flowsheets Taken 07/18/20252319 by Inessa Almazan, NAHID Self-Care Promotion: independence encouraged Taken 07/18/20251999 by Inessa Almazan, NAHID Activity Assistance Provided: assistance, stand-by Taken 07/14/20252310 by Rita Alejandro, NAHID Adaptive Equipment Use: long-handled shoe horn Problem: Wound Goal: Optimal Coping Outcome: Met Intervention: Support Patient and Family Response Flowsheets (Taken 07/18/2025 1600 by Josi Ann, RN) Supportive Measures: active [...] small meals provided supplemental drinks provided Taken 07/18/2025 1600 by Josi Ann RN Nutrition Support Management: weight trending reviewed Goal: Optimal Pain Control and Function Outcome: Met Intervention: Prevent or Manage Pain Flowsheets Taken 07/19/20253 by Inessa Almazan, cancellation clerk Interventions: medication (see MAR) Taken 07/18/2025 1600 [...] Note Cristina Brown 50 y.o. female CSN: [id number] Admission: 07/08/2025 5:58 PM Primary Problem: Necrotizing fasciitis (CMS/HCC) Primary Advertising Sales Executive: Primary Caregiver: Self Assistance Available at Discharge: [...] Community Agency(s): Patient's Choice of Community Agency(s): [facility] Patient/Family Anticipated Services at Transition: Patient/Family Anticipated Services at Transition: rehabilitation services DME/Equipment Needed after Discharge: Equipment Currently Used at Home: none Equipment Needed After Discharge: walker, rollator Readmission Within the Last 30 Days: Readmission Within the Last 30 Days: unable to assess Medicare Documentation: N/A Follow-up: Keaton Patel MD [address] [facility] [address] [place] [address] [facility] ([facility]) [address] [phone] Go on 07/19/2025 Discharge Transportation: Transportation Anticipated: [...] arranged for this date at 1400 from [facility]. Annie Littlejohn * Gauri Rico - Raj Cardona RN - 07/19/2025 9:44 AM EDT Images from the original note were not included. 1087 Oxycodone Oral Tablet, Immediate Release Brand Names: Oxaydo, Roxicodone What is this medicine? Oxycodone (tm-c-APY-done) is an opioid pain reliever. It is [...] a special medication guide each time you meat pickler this medicine. ? Overdosage: Taking too much [...] should report to your doctor or health rn wound care as soon as possible: ? allergic reactions [...] attention (report to your doctor or health rn wound care if they continue or are bothersome): ? constipation ? dry mouth ? itching ? nausea, vomiting ? upset stomach This list may not describe all possible side effects. Call your doctor for medical advice about side effects. You may report side effects to FDA at 8-477-LVC-5143. Where should I keep my medicine? This [...] location. To find a disposal location, visit [place]/[facility]/[place]. If you cannot take unused medicine to a proper location, you can mix the medicine with coffee grounds or jose litter and dispose of in the normal trash. Your doctor may also give you a special disposal pouch for this medicine. You can also flush the medicine down the toilet. * Gauri OnJANETH - Raj Cardona RN - 07/19/2025 9:44 AM EDT Images from the original note were not included. [id number] Naloxone Nasal Provencal WHY is this medicine prescribed? Prescription and [...] pharmacist for the instructions or visit the registration scheduling specialist's website to get the instructions. You should [...] or doctor for a copy of the registration scheduling specialist's information for the patient. Are there OTHER [...] and out of their sight and reach. https://www.[employer].org Dispose of unneeded medications in a way [...] of all of the prescription and nonprescription (aegk-mgy-tjaxkcs) medicines, vitamins, minerals, and dietary supplements you [...] or pharmacist about specific clinical use. The [place] [employer] represents that the information provided hereunder was formulated with a reasonable standard of care, and in conformity with professional standards in the field. The [place] [employer]. makes no representations or warranties, express or implied, including, but not limited to, any implied warranty of merchantability and/or fitness for a particular purpose, with respect to such information and specifically disclaims all such warranties. Users are advised that decisions regarding drug therapy are complex medical decisions requiring the independent, informed decision of an appropriate health rn wound care, and the information is provided for informational purposes only. The entire monograph for a drug should be reviewed for a thorough understanding of the drug's actions, uses and side effects. The [place] [employer] does not endorse or recommend the use of any drug.The information is not a substitute for medical care. AHFS?? Patient Medication Information?. ?? Copyright, 2023. The [place] [employer]-System Pharmacists??, [address], [address], [place], [place]. All Rights Reserved. Duplication for commercial use must be authorized by [facility]. Selected Revisions: May 26, 2024. AHFS?? Patient Medication Information?. ?? Copyright, 2024 * [facility] - Raj Cardona RN - 07/19/2025 9:44 [...] controlled substances: ? Drug Enforcement Agency (HARIS): http://www.deadiversion.PlayDooXintu Shuju.gov/drug_disposal/takeback/index.htm ? National Association of Drug Diversion Investigators (NADDI): http://rxdrugdropbox.org/ ? [place] Office of Drug Control Policy: http://odcp.[place].gov/Prescription+Drug+Drop+Box+Sites.htm Are there concerns about or ? ? [...] look blue or purple What is a [facility] report? DANYELLE is a system that tracks prescriptions of controlled substances in [place]. The DANYELLE report tells your doctor if [...] or your doctor may then call the [place] Drug Enforcement and Professional Practices Branch at .This will start an investigation of the error. * Jodycynthia [facility] - Raj Cardona RN - 07/19/2025 9:44 AM EDT Images from the original note were not included. 18488 Insulin: How to Use and Where to [...] ?needles? or ?sharps.? ? Call your local bepretty company to ask about removing the sharps container. You can also check withthe Coalition for Safe Community Needle Disposal at www.safeneedledisposal.org or 299-609-8834. Storing your insulin ? Keep unopened insulin [...] cold. Last Reviewed Date: 2023 00:00:00 ?? 4760-4879 The [employer]. All rights reserved. This information is not intended as a substitute for professional medical care. Always follow your healthcare professional's instructions. * Gauri Rico - Raj Cardona RN - 07/19/2025 9:43 AM EDT Images from the original note were not included. [id number] Diet: Diabetes Food is an important tool [...] of Nutrition and Dietetics at www.eatright.org o [place] Diabetes Association at www.diabetes.org or 871-780-8177 o Association of Diabetes Care and Education Specialists at www.diabeteseducator.org/ Last Reviewed Date: 2024 00:00:00 ?? 9990-9781 The [employer]. All rights reserved. This information is not intended as a substitute for professional medical care. Always follow your healthcare professional's instructions. * Gauri OnFHIR - Raj Cardona RN - 07/19/2025 9:43 AM EDT Images from the original note were not included. 59732 Diabetes: Understanding Carbohydrates, Fats, and Protein Food [...] foods. Last Reviewed Date: 2024 00:00:00 ?? 4003-9494 The [employer]. All rights reserved. This information is not intended as a substitute for professional medical care. Always follow your healthcare professional's instructions. * Gauri LouieJANETH - Raj Cardona RN - 07/19/2025 9:43 AM EDT Images from the original note were not included. 05621 Discharge Instructions: Packing a Wound You have [...] chills. Last Reviewed Date: 2025 00:00:00 ?? 8128-9382 The [employer]. All rights reserved. This information is not intended as a substitute for professional medical care. Always follow your healthcare professional's instructions. * Gauri Rico - Raj Cardona RN - 07/19/2025 9:43 AM EDT Images from the original note were not included. 95814 Negative Pressure Wound Therapy Negative pressure wound [...] device. Last Reviewed Date: 2024 00:00:00 ?? 8782-9059 The [employer]. All rights reserved. This information is not intended as a substitute for professional medical care. Always follow your healthcare professional's instructions. * Gauri Rico - Raj Cardona RN - 07/19/2025 9:43 AM EDT Images from the original note were not included. 79797 Discharge Instructions: Changing Your Dressing You are [...] doctor. Last Reviewed Date: 2025 00:00:00 ?? 8213-3963 The [employer]. All rights reserved. This information is not intended as a substitute for professional medical care. Always follow your healthcare professional's instructions. * [facility] - Raj Cardona RN - 07/19/2025 9:42 AM EDT Images from the original note were not included. 567525hm Abscess (Incision and Drainage) An abscess is [...] treatment. Last Reviewed Date: 2024 00:00:00 ?? 7769-5898 The [employer]. All rights reserved. This information is not intended as a substitute for professional medical care. Always follow your healthcare professional's instructions. * Gauri Rico - Raj Cardona RN - 07/19/2025 9:42 AM EDT Images from the original note were not included. 38007 Preventing a Surgical Site Infection A risk [...] of infection. ? Controlled body temperature. A cwgpy-gqiv-btejmh temperature during or after surgery prevents oxygen [...] and water or with an alcohol-based hand spool cleaner before and after caring for you. Don?t [...] away. Last Reviewed Date: 2024 00:00:00 ?? 5474-8613 The [employer]. All rights reserved. This information is not intended as a substitute for professional medical care. Always follow your healthcare professional's instructions. * [facility] - Raj Cardona RN - 07/19/2025 9:42 [...] to the condition itself. It comes from Frisian and Latin words for a gnawing sore [...] questions. Last Reviewed Date: 2023 00:00:00 ?? 1230-7041 The [employer]. All rights reserved. This information is not intended as a substitute for professional medical care. Always follow your healthcare professional's instructions. * Discharge Summary - Becky Graff, PUBLIC INFORMATION COORDINATOR - 07/19/2025 9:31 AM EDT Images from the original note were not included. Hospitalization Admit Date/Time: 07/08/2025 5:58 PM Admitting Attending: Luanne Crawford Discharge Date: 07/19/25 Discharge Attending Physician: Anne Franco MD PCP name and Address: Yenny Dhillon, PUBLIC INFORMATION COORDINATOR [address] [facility] / [place] [address] Referring provider name and address: Keaton Patel MD [address] [place] [address] [facility] [place] Chief Concern, Brief History of Present Illness, and Hospital Course Cristina Brown is a 50 y.o. female with PMH of DM, hidradenitis supparativa, current smoker (1.5ppd), hx of absent seizures, UTI, depression, anxiety, asthma, HLD, celiac disease, presenting to [facility] on 07/08/2025 as transfer with concern [...] stay, and so will be discharged to [facility]. Surgeries and Procedures Procedures performed in [...] Your Medications These medications were sent to [facility] [place], [place] - [address] [facility] [facility] [address] [facility] [id number] naloxone 4 mg/0.1 mL nasal spray Information [...] - Improving, continue to monitor Septic shock ([facility]) Overview Addendum 07/12/2025 1:55 [...] dressing in place, sutures removed on rounds. [facility] can re- apply negative pressurewound therapy: [...] please call our General Surgery Clinic at [phone]. If there are questions or concerns after discharge from the hospital, call Radha Ugalde, Nurse Coordinator between 7am-3pm at [phone]. If it is after hours, weekends, and holidays please call [phone] and ask for the resident manager mission for Emergency General Surgery. Medication requests should be made between the hours of 9:00 AM to 3:00 PM Tuesday thru Tuesday. Please note that based upon recent changes to [place] law related to prescribing opioid pain medications, [...] normal. Judgment: Judgment normal. Discharge Disposition/Condition Disposition: [facility] Condition: Stable (s/sx potential problems absent or [...] (H) 07/17/2025 I reviewed bg tracing in [facility] glucose timeline 07/19/25 ASSESSMENT Hospital Course: Cristina Brown is a 50 y.o. female with hx of type 2 DM, morbid obesity, hidradenitis supparativa, current smoker (1.5 ppd), hx of absent seizures, UTI, depression, anxiety, asthma, HLD, celiac disease who initially came to [facility] on 07/08/2025 as transfer with concern [...] to establish care with endocrine provider in [place], [place]. --> Provided patient with address and number of clinic. [[facility] Endocrinology Clinic in the [facility] Physician Building]. -Tentative discharge recommendations: [...] team via secure chat orpage us at [phone] during 7a-7p, Tuesday-Tuesday. For after hours please [...] 7:08 AM EDT Associated Problem(s): Necrotizing fasciitis ([facility]) - 07/09: debridement of [...] AM EDT 07/19/25 Cristina Brown HPI Cristina Kevin is a 50F with pMHx of absence seizure, hidradenitis suppurative, hypertension, T2DM,obesity, tobacco use disorder, and newly diagnosed JOSEP who presented to [facility] with leukocytosis and exam findings consistent with [...] - 07/18/25 0659 07/18/25 07 - 07/18/25 18507/[id number]/251899 - 07/19/25 0659 07/19/25 0700 - 07/19/25 [...] the brett pad. After discussion with chief manager mission, decision was made to remove the [place] and place a uyh-cka-luyntadq with Kerlix, Polymem, ABD pads, and skin [...] Almazan, RN Outcome: Ongoing, Progressing Flowsheets Taken 07/18/20252318 [...] Note Cristina Brown 50 y.o. female CSN: [id number] Admission: 07/08/2025 5:58 PM Primary Problem: Necrotizing fasciitis (CMS/HCC) Anticipated Discharge Date: 07/19/25 Has Discharge Plans Changed? Yes [facility] Medicare Second Notice: Housing Circumstances: Low Income ( 101-300% Federal Poverty Guideline) Housing Circumstances Action Taken: Medically Ready for Discharge: Anticipated Tomorrow Additional Comments Per the MD pt is medically ready to d/c after she can tolerate her wv being changed without IV painmedication. SW talked with the pt and she is agreeable to go to [facility] however she still has a lot [...] the MD team. Pt will transfer to [facility] via shuttle on 07/19 if all needs are addressed. Annie Littlejohn * Progress Notes - Sherrill Villa, PUBLIC INFORMATION COORDINATOR - 07/18/2025 8:46 AM EDT Endocrine - [...] HLD, celiac disease who initially came to [facility] on 07/08/2025 as transfer with concern [...] to establish care with endocrine provider in [place], [place]. --> Provided patient with address and number of clinic. [[facility] Endocrinology Clinic in the [facility] Physician Building]. -Tentative discharge recommendations: [...] Adult Inpatient Diabetes team via secure chat orpaDFine us at [phone] during 7a-7p, Tuesday-Tuesday. For after hours please [...] 7:05 AM EDT Associated Problem(s): Necrotizing fasciitis ([facility]) - 07/09: debridement of [...] * Assessment & Plan Note - Jason Ander MD - 07/18/2025 7:05 AM EDT Associated [...] Morbid (severe) obesity due to excess calories ([facility]) Complicates all aspect of [...] not routine care * Care Plan - Inesas Almazan RN - 07/18/2025 2:18 AM EDT [...] Ongoing, Progressing Intervention: Promote Activity and Functional [place] Flowsheets (Taken 07/18/2025204) Activity Assistance Provided: assistance, [...] Ongoing, Progressing Intervention: Promote Activity and Functional [place] Flowsheets Taken 07/16/2025 0635 by Yessenia Ramirez [...] HLD, celiac disease who initially came to [facility] on 07/08/2025 as transfer with concern [...] to establish care with endocrine provider in [place], [place]. --> Provided patient with address and number of clinic. [[facility] Endocrinology Clinic in the [facility] Physician Building]. -Tentative discharge recommendations: [...] via secure chat or page us at [phone] during 7a-7p, Tuesday-Tuesday. For after hours please [...] ondansetron, oxyCODONE OR oxyCODONE * Procedures - rAturo Mancilla RN - 07/17/2025 5:14 PM EDTAssociated [...] * Assessment & Plan Note - Jason Ander MD - 07/17/2025 10:21 AM EDT Associated [...] Morbid (severe) obesity due to excess calories ([facility]) Complicates all aspect of [...] MD - 07/17/2025 10:18 AM EDT 07/17/25 Irinadebbieincholas Escobar Kevin HPI 50-year-old female with past medical [...] admission Level of Mobility Ambulatory- community Mobility [place] Independent gait without device History of Falls [...] motivated and engaged throughout Visitors Present None Headrig Sawyer (if applicable) OBJECTIVE PAIN Rates pain at [...] needed areas of treatment space Level of [place] Interventions: Feeding Independent Edge of bed Patient [...] Level of Assistance: Moderate assistance Adaptive Equipment: Entry Level Programmer, Sock aide Training and demonstration provided for use and functionality of sock aid, leg news assistant strap and police matron tool to support independence with LB dressing, [...] and prioritizing during ADL performance. Access Code: [email or web address] URL: [email or web address] Putting On Socks with a Sock Aid Putting On and Taking Off Pants Using a Entry Level Programmer Using a Leg Coal Picker Adaptive Equipment for Bathing & Showering Understanding Energy Conservation BED MOBILITY Level of [place] Physical/Non- physical Assist Adaptive Equipment Utilized Supine to Sit Modified [place] Bed rails TRANSFERS Level of [place] Physical/Non- physical Assist Adaptive Equipment Utilized Sit [...] AM. * Progress Notes - Yong Polina R - 07/17/2025 10:02 AM EDT PHYSICAL THERAPY [...] admission Level of Mobility Ambulatory- community Mobility [place] Independent gait without device History of Falls [...] unaware when pt may be discharged from [facility]. Headrig Sawyer (if applicable) Not Applicable OBJECTIVE & INTERVENTIONS [...] pt's true mobility BED MOBILITY Level of [place] Physical/Non- physical Assist Adaptive Equipment Utilized Rolling/ Turning Scooting/ Bridging Supine to Sit Modified [place] Bed rails Sit to Supine Interventions TRANSFERS Level of [place] Physical/Non- physical Assist Adaptive Equipment Utilized Sit to Stand Stand-by assist Supervision Rollator Stand to sit Stand-by assist Supervision Rollator Bed to Chair Toilet Transfer Shower Transfer Interventions BALANCE Postural Appearance Posture: Forward head, Rounded shoulders Level of [place] Balance Support Interventions Static Sit Standby assist Feet supported Dynamic Sit Contact guard Feet supported Dynamic Sitting-Balance: Lateral weight shifts, Anterior/Posterior weight shifts Static Stand Contact guard Right upper extremity support, Left upper extremity support Standing in room prior to ambulation Dynamic Stand Contact guard Right upper extremity support, Left upper extremity support 3 bouts of approx 1 min each AMBULATION Level of [place] Distance Adaptive Equipment Utilized Ambulation Contact guard [...] Ongoing, Progressing Intervention: Promote Activity and Functional [place] Flowsheets Taken 07/16/2025 0635 by Yessenia Ramirez [...] promoted Taken 07/14/2025 1800 by Josi Ann food and drug inspector/Support System Care: support provided Goal: Optimal Functional [...] Thromboembolism) Risk Flowsheets (Taken 07/16/2025 0640 by Estrada, Eulalia J, RN) VTE Prevention/Management: medication Intervention: Prevent Infection [...] Ongoing, Progressing Intervention: Promote Activity and Functional [place] Flowsheets Taken 07/16/2025 0635 by Yessenia Ramirez [...] Intervention: Monitor Pain and Promote Comfort 07/16/2025 181 by Isha Colunga RN Flowsheets [...] RN Isolation Precautions: precautions maintained Taken 07/15/2025 132 by Sophia Salazar RN Infection Management: aseptic technique maintained 07/16/2025 180 by Isha Colunga RN Flowsheets (Taken 07/15/20251324 by Sophia Salazar RN) Infection Management: aseptic [...] Ongoing, Progressing Intervention: Promote Activity and Functional [place] Flowsheets (Taken 07/16/2025 012 by Eulalia Estrada [...] 3:01 PM EDT SW received call from Ssis Etl Developer offering assistance for d/c planning. Her Callback #[phone] * Progress Notes - Sherrill Villa APRN [...] (H) 07/14/2025 I reviewed bg tracing in [facility] glucose timeline 07/16/25 ASSESSMENT Hospital Course: Cristina Brown is a 50 y.o. female with hx of type 2 DM, morbid obesity, hidradenitis supparativa, current smoker (1.5 ppd), hx of absent seizures, UTI, depression, anxiety, asthma, HLD, celiac disease who initially came to [facility] on 07/08/2025 as transfer with concern [...] to establish care with endocrine provider in [place], [place]. --> Provided patient with address and number of clinic. [[facility] Endocrinology Clinic in the [facility] Physician Building]. -Tentative discharge recommendations: [...] Adult Inpatient Diabetes team via secure chat orpaDFine us at [phone] during 7a-7p, Tuesday-Tuesday. For after hours please contact the on-call Endocrine Fellow. Thank you for the opportunity to participate in this patient's care. [1] acetaminophen, 1,000 mg, Oral, q6h MRAIBELL busPIRone, 15 mg, Oral, BID DULoxetine, 60 [...] clinically * Assessment & Plan Note - Jasno Andre MD - 07/16/2025 6:52 AM EDT [...] night Postoperative pain Present on Admission: Unknown [facility] Non-Hospital Problems Carpal tunnel syndrome Dehydration [...] Ongoing, Progressing Intervention: Promote Activity and Functional [place] Flowsheets (Taken 07/16/2025128) Self-Care Promotion: independence encouraged BADL personal objects within reach BADL personal routines maintained adaptive equipment use encouraged Problem: Wound Goal: Optimal Coping Outcome: Ongoing, Progressing Intervention: Support Patient and Family Response Flowsheets Taken 07/16/2025128 by Eulalia Estrada RN Supportive Measures: active listening utilized verbalization of feelings encouraged problem-solving facilitated relaxation techniques promoted Taken 07/14/2025 1800 by Josi Ann food and drug inspector/Support System Care: support provided Goal: Optimal Functional [...] Intervention: Optimize Skin Protection Flowsheets (Taken 07/16/2025 012) Activity Management: activity adjusted per tolerance activity [...] Ongoing, Progressing Flowsheets Taken 07/14/2025 2311 by Flavia, Rita, RN Progress: improving Taken 07/14/2025 1813 by Josi Ann, RN Plan of Care Reviewed With: patient [...] Risk Flowsheets (Taken 07/14/20251999 by Rita Alejandro, RN) VTE Prevention/Management: SCDs (sequential compression devices) [...] Ongoing, Progressing Intervention: Promote Activity and Functional [place] Flowsheets Taken 07/15/2025 1745 by Denia Boo, RN Activity Assistance Provided: assistance, stand-by Taken 07/14/2025 2311 by Rita Alejandro, RN Adaptive Equipment Use: long-handled shoe horn Taken 07/14/2025 1800 by Josi Ann RN Self-Care Promotion: independence encouraged Problem: Wound Goal: Optimal Coping Outcome: Ongoing, Progressing Intervention: Support Patient and Family Response Flowsheets Taken 07/15/2025 132 by Sophia Salazar RN Supportive Measures: positive reinforcement provided Taken 07/14/2025 1800 by Josi Ann food and drug inspector/Support System Care: support provided Goal: Optimal Functional [...] Evaluation Note Cristina Brown 50 y.o. female [facility]: [id number] Room/Bed 123/123A Nutrition evaluation type: follow-up Reason for evaluation: Hospital course: 50 y o F transferred from H with concern for necrotizing fasciitis; OR 07/08 for excisional debridement of RLE, groin, pubis, and abdominal wall of skin, subcutaneous tissue, and muscle fascia, [id number]. Septic shock secondary to NSTI. Intubated & [...] Supplemental oxygen O2 Delivery Method: Nasal cannula [place] Coma Scale Score: 15 Julián Scale Score: [...] Estimated Needs: Kcal: 25-27 kcal/kg adj bw (7121-4461 kcal/d) Protein: 1.5-1.7 g/kg adj bw (143-162 [...] Note Cristina Brown 50 y.o. female CSN: [id number] Admission: 07/08/2025 5:58 PM Primary Problem: Necrotizing fasciitis (CMS/HCC) Stone Driller reviewed chart and spoke with patient to complete this Initial Case Management Assessment. PCP: Yenny Dhillon APRN Emergency Contact: Extended Emergency Contact Information Primary Emergency Contact: Yecenia Lake Mobile Relation: Sister Preferred language: Spanish Headrig Sawyer needed? No Secondary Emergency Contact: Jahnc,Arnoldo Address: [address] [place] [address] Mobile Relation: Significant Other Preferred language: Spanish Headrig Sawyer needed? No Insurance: Primary Visit Coverage Payer Plan Sponsor Code Group Number Group Name [facility] MEDICAID [facility] MEDICAID [facility] Primary Visit Coverage Subscriber Subscriber ID Subscriber Name Subscriber SSN Subscriber Address [id number] CRISTINA BROWN [id number] [address] Patient information: Primary Caregiver: Self Accompanied by/Relationship: Arnoldo Raymond- significant other Support System: Immediate family, Extended family, Friends Daily Living Activities: Functional Status: Minimum assistance Living Arrangements: Family, Friends Type of Residence: Private residence [address] [place] [id number] Smoker in the Home?: Yes Current DME: Equipment Currently Used at Home: none Income Information: Income Source: Unemployed Income/Expense Information: Expenses exceed income Current Resources Utilized: Food [place] Housing Circumstances-Z Codes: Housing Circumstances (select all [...] Dialysis Services: N/A Living Will/Advance Directive/Power of Allergy And Immunology Specialist /Guardian: N/A Additional Comments: Pt gets her medications from [facility] in [place] * Consults - Anupama [...] HLD, celiac disease who initially came to [facility] on 07/08/2025 as transfer with concern [...] Anxiety, Asthma, Carpal tunnel syndrome, Depression, Diabetes ([facility]), H/O absence seizures, Hidradenitis, [...] after discharge close to her home at [place]. She agrees to call and make appointment [...] Endocrinology referral - patient requested to see ramp service man in [place], [place]. Provided patient with address and number of clinic. [[facility] Endocrinology Clinic in the [facility] Physician Building]. Patient has been [...] pain MMPC * Progress Notes - Jason Ander MD - 07/15/2025 7:13 AM EDT 07/15/25 [...] night Postoperative pain Present on Admission: Unknown [facility] Non-Hospital Problems Carpal tunnel syndrome Dehydration [...] drink shakes - CPAP at night for JSOEP. Dispo: AR. Not MR, pending wound closure. [...] Ongoing, Progressing Intervention: Promote Activity and Functional [place] Flowsheets Taken 07/14/20252310 by Rita Alejandro RN Adaptive Equipment Use: long-handled shoe horn Taken 07/14/2025 1800 by Josi Ann, RN Activity Assistance Provided: assistance, 2 people Self-Care Promotion: independence encouraged Problem: Wound Goal: Optimal Coping Outcome: Ongoing, Progressing Intervention: Support Patient and Family Response Flowsheets (Taken 07/14/20251799 by Josi Ann, RN) Supportive Measures: active [...] Ongoing, Progressing Intervention: Promote Activity and Functional [place] Flowsheets (Taken 07/14/2025 1800) Activity Assistance Provided: [...] PM EDT Operative Note Date: 07/14/25 Location: [place] [facility] Name: Cristina Brown, : 1975, Diagnoses: Pre-op Diagnosis Necrotizing fasciitis (CMS/HCC) Post-op Diagnosis Necrotizing fasciitis (CMS/HCC) Procedure(s): Wound irrigation Partial wound closure, total closed 30 cm length Attending Surgeon(s): * Anne Franco - Primary Carton Counter Feeder(s): * Janell Cross MD - Resident - [...] (mL) 30 mL 07/14/25 1625 [REMOVED] NG/OG Stanton Sump O[facility] mouth (Removed) Placement Verification [...] 08 Tube Feeding Frequency Other (Comment) 07/10/25 040 Tube Feeding Rate (mL/hr) 0 mL/hr 07/10/25 040 Tube Feeding Peptamen Intense VHP 07/10/25 0400 Tube Feeding Method Continuous per pump 07/09/25 2000 Tube Feeding Bag Changed Yes 07/09/25 1205 Free water/flush (mL) 60 mL 07/10/25 0800 Intake (mL) 49 mL 07/10/25 0000 [REMOVED] NG/OG Danny Sump 14 Fr Left nostril (Removed) Placement [...] I was present during all critical and hebret portions of the procedure(s) and immediately available [facility] services the entire duration. See resident [...] Morbid (severe) obesity due to excess calories ([facility]) Complicates all aspect of [...] 07/13/25 0659 07/13/25 07 - 07/13/25 18507/13/25 1900 - 07/14/25 0659 07/14/25 0700 - [...] night Postoperative pain Present on Admission: Unknown [facility] Non-Hospital Problems Carpal tunnel syndrome Dehydration [...] clutter-free environment maintained assistive device/personal items within [facility] fall prevention program maintained nonskid shoes/slippers [...] clutter-free environment maintained assistive device/personal items within [facility] fall prevention program maintained nonskid shoes/slippers [...] Ongoing, Progressing Intervention: Promote Activity and Functional [place] Flowsheets (Taken 07/13/20251826) Activity Assistance Provided: assistance, [...] Progress Note Cristina Brown 50 y.o. female [facility]: [id number] Admission: 07/08/2025 5:58 PM Primary Problem: Necrotizing fasciitis (CMS/HCC) Stone Driller reviewed chart and spoke with Cristina to complete this Initial Case Management Assessment. PCP: Yenny Dhillon APRN Emergency Contact: Extended Emergency Contact Information Primary Emergency Contact: Yecenia Lake Mobile Relation: Sister Preferred language: Spanish Headrig Sawyer needed? No Secondary Emergency Contact: Arnoldo Raymond Address: [address] [place] [address] Mobile Relation: Significant Other Preferred language: Spanish Headrig Sawyer needed? No Insurance: Primary Visit Coverage Payer Plan Sponsor Code Group Number Group Name [facility] MEDICAID [facility] MEDICAID [facility] Primary Visit Coverage Subscriber Subscriber ID Subscriber Name Subscriber N Subscriber Address [id number] CRISTINA BROWN [id number] [place] [address] Patient information: Primary Caregiver: Self Accompanied by/Relationship: Arnoldo Raymond- significant other Support System: Immediate family Daily Living Activities: Functional Status: Independent Living Arrangements: Spouse/Significant other Type of Residence: Private residence [address] [place] [address] Current DME: Equipment Currently Used at Home: none Income Information: Housing Circumstances-Z Codes: Patient Referred to: Anticipated Discharge Date: unknown Patient's Discharge Goal: Referrals sent for Acute Rehab Assistance Available at Discharge: Arnoldo Raymond Discharge Transport: Arnoldo Raymond Follow Up Transport: Arnoldo raymond Home Health / Home Infusion / Outpatient Dialysis Services: none Living Will/Advance Directive/Power of Allergy And Immunology Specialist /Guardian: Additional Comments: CM discussed acute rehab placement with Cristina and Arnoldo Raymond. Their first choice is [facility] in [place], [place]. CM sent referrals in [facility]. Cristina will continue inpatient management for necrotizing fascitis in right lower extremity until placement in acute rehab. Cristina has support once discharged from acute rehab at home. Cristina does have concerns if she needs to move and may need resources. CMstated to ask for resources if needed. Marilee A Tavitian, RN * Significant Event - Jatin Miller [...] 12:36 PM EDT Associated Problem(s): Postoperative pain [facility] * Progress Notes - Aparna Shultz Richelle - 07/13/2025 11:59 AM EDT Occupational Therapy Evaluation Patient Name: Cristina Brown Today's Date: 07/13/2025 OT Discharge Recommendations: Acute rehab Equipment Recommended: Defer to facility History Cristina Brown is 50 y.o. female admitted 07/08/2025 for work-up of Necrotizing fasciitis ([facility]). Problem List Active Hospital Problems Diagnosis Date Noted Postoperative pain 07/13/2025 JOSEP (obstructive sleep apnea) 07/11/2025 HLD (hyperlipidemia) 07/10/2025 Acute respiratory failure 07/09/2025 Septic shock ([facility]/HCC) 07/09/2025 Absence seizure ([facility]/HCC) 07/09/2025 DM (diabetes mellitus) ([facility]) 07/08/2025 Hidradenitis 07/08/2025 HTN (hypertension), benign 08/31/2023 Urge incontinence 08/31/2023 Smoker 06/09/2023 Depression 06/09/2023 Morbid (severe) obesity due to excess calories ([facility]) 02/15/2022 Chronic obstructive pulmonary disease, unspecified ([facility]) 01/09/2022 Necrotizing fasciitis ([facility]/HCC) 07/08/2025 Procedures 07/11/2025 Procedure(s): APPLICATION OR REPLACEMENT, [...] evaluation. Participants in Care Family/Caregiver Present: No Headrig Sawyer: Not Applicable Presentation Oxygen Therapy: Supplemental oxygen [...] admission Level of Mobility: Ambulatory- community Mobility Pas[place]: Independent gait without device History of Falls: [...] Mobility Bed Mobility Exam: Scooting/Bridging Level of Pas[place]: Contact guard (seated scoot once sitting up on EOB and able to wiggle back into recliner chair) Bed Mobility Exam: Supine to Sit Level of Pas[place]: Moderate assist (50% patient's effort) Physical/Nonphysical Assist: Verbal Cues, Moderate cues, Additional assist utilized for safety, HOBelevated Assistive Device: Other (PYTHON DJANGO DEVELOPER x2) Transfers Transfer Interventions: Patient performed sit < > stand x 3 reps total: Mod A from EOB, Min Afrom recliner chair, and CGA from BSC. Transfer Exam: Sit to stand Level of Pas[place]: Minimum assist (75% patient's effort) Physical/Nonphysical Assist: Verbal Cues, Minimal cues Assistive Device: Walker, rolling (andrea) Transfer Exam: Stand to Sit Level of Pasco: Minimum assist (75% patient's effort) Physical/Nonphysical Assist: Verbal Cues, Minimal cues Assistive Device: Walker, rolling (andrea) Transfer Exam: Bed to Chair/Chair to Bed Level of Pasco: Minimum assist (75% patient's effort) Physical/Nonphysical Assist: Verbal Cues, Minimal cues, Additional assist utilized for safety Type of Transfer: Sidesteps (bed > chair < > BSC) Assistive Device: Walker, rolling (andrea) Toilet Transfer Level of Pas[place]: Minimum assist (75% patient's effort) Physical/Nonphysical Assist: Nonverbal cues (demo/gestures), Verbal Cues, Set-up required, Minimal cues Type of Transfer: Sidesteps, To bedside commode (ordered bariatric BSC from [facility] as patient had difficulty getting on/off BSC [...] to allow bedside care to take placed (PHOTO PRINT SPECIALIST entering to take vitals; RN enforcing bandages [...] for further toileting ADL needs. Standardized Assessments [facility] 6-Click Daily Activities Help from Other: Don/Doff Regular Lower Body Clothings: A lot Help From Other: Bathing: A lot Help From Other: Toileting: A lot Help From Other: Don/Doff Upper Body Clothings: Little Help From Other: Grooming: None Help From Other: Eating Meals: None [facility] 6 Click - Daily Activities Score: 17 [...] rehab Equipment Recommended: Defer to facility History rCistina Brown is 50 y.o. female admitted 07/08/2025 for work-up of Necrotizing fasciitis ([facility]). Problem List Active Hospital Problems Diagnosis Date Noted Postoperative pain 07/13/2025 JOSEP (obstructive sleep apnea) 07/11/2025 HLD (hyperlipidemia) 07/10/2025 Acute respiratory failure 07/09/2025 Septic shock ([facility]/HCC) 07/09/2025 Absence seizure ([facility]/HCC) 07/09/2025 DM (diabetes mellitus) (CMS/HCC) 07/08/2025 Hidradenitis [...] move. Participants in Care Family/Caregiver Present: No Headrig Sawyer: Not Applicable Presentation Oxygen Therapy: Supplemental oxygen [...] admission Level of Mobility: Ambulatory- community Mobility [place]: Independent gait without device History of Falls: [...] Mobility Bed Mobility Exam: Scooting/Bridging Level of Pas[place]: Contact guard (seated scoot once sitting up on EOB and able to wiggle back into recliner chair) Bed Mobility Exam: Supine to Sit Level of Pas[place]: Moderate assist (50% patient's effort) Physical/Nonphysical Assist: Verbal Cues, Moderate cues, Additional assist utilized for safety, HOBelevated Assistive Device: Other (PYTHON DJANGO DEVELOPER x 2) Transfers Transfer Interventions: Patient performed sit < > stand x 3 reps total: Mod A from EOB, Min Afrom recliner chair, and CGA from BSC. Cues for safe hand placement during transitions using RW. Transfer Exam: Sit to stand Level of Pasco: Minimum assist (75% patient's effort) Physical/Nonphysical Assist: Verbal Cues, Minimal cues Assistive Device: Walker, rolling (andrea) Transfer Exam: Stand to Sit Level of Pasco: Minimum assist (75% patient's effort) Physical/Nonphysical Assist: Verbal Cues, Minimal cues Assistive Device: Walker, rolling (andrea) Transfer Exam: Bed to Chair/Chair to Bed Level of Pasco: Minimum assist (75% patient's effort) Physical/Nonphysical Assist: Verbal Cues, Minimal cues, Additional assist utilized for safety Type of Transfer: Sidesteps (bed > chair < > BSC) Assistive Device: Walker, rolling (andrea) Toilet Transfer Level of Pasco: Minimum assist (75% patient's effort) Physical/Nonphysical Assist: [...] assistance Standardized Assessments Standardized Assessments Standardized Assessments: [facility] 6-Clicks Mobility Assessment [facility] 6-Clicks Mobility Assessment Difficulty patient has [...] climbing 3-5 steps with a railing?: Unable [facility] 6-Clicks Mobility Assessment Total : 15 [...] anxiety, asthma, HLD, celiac disease, presenting to [facility] on 07/08/2025 as transfer with concern [...] stay, and so will be discharged to [facility]. * Assessment & Plan Note - [...] night Postoperative pain Present on Admission: Unknown [facility] Non-Hospital Problems Carpal tunnel syndrome Dehydration [...] Airway None O2 Delivery Method: Nasal cannula IN SUP: 10 cm H20 Insp Time (sec): 1 sec FiO2 (%): 40 % S RR: 20 IN SUP: 10 cm H20 Output by Drain [...] - Improving, continue to monitor Septic shock ([facility]) Yes Overview Addendum 07/12/2025 1:55 PM by [...] Morbid (severe) obesity due to excess calories ([facility]) (Chronic) Yes Overview Addendum 07/11/2025 9:31 AM [...] saw and evaluated the patient with the medical/BUSINESS SUPERVISOR/PA student. I discussed the case with the medical/BUSINESS SUPERVISOR/PA student and agree with the findings [...] - 07/11/2025 4:37 PM EDT Patient: Cristina Escobar Kevin Anesthesia Type: general Vitals Value Taken Time [...] PM EDT Operative Note Date: 07/11/25 Location: [place] [facility] Name: Cristina Brown, : 1975, Diagnoses: Pre-op Diagnosis Necrotizing fasciitis (CMS/HCC) Post-op Diagnosis Necrotizing fasciitis (CMS/HCC) Procedure(s): Right groin/perineum/thigh/abdominal wound exploration and washout Attending Surgeon(s): * Dorcas Hennessy - Primary Carton Counter Feeder(s): * Janell Cross MD - Resident - [...] Note Cristina Brown 50 y.o. female CSN: [id number] Room/Bed 133/133A Nutrition evaluation type: follow-up Reason for evaluation: Hospital course: 50 y o F transferred from OSH with concern for necrotizing fasciitis; OR 07/08 for excisional debridement of RLE, groin, pubis, and abdominal wall of skin, subcutaneous tissue, and muscle fascia, [id number]. Septic shock secondary to NSTI. Intubated & [...] O2 Delivery Method: High flow nasal cannula [place] Coma Scale Score: 15 Satnam/Cubbin Pressure Risk [...] Estimated Needs: Kcal: 25-27 kcal/kg adj bw (1666-1159 kcal/d) Protein: 1.5-1.7 g/kg adj bw (143-162 [...] -will monitor NPO duration -po per MD/ SYSTEM DEVELOPMENT MANAGER -when po diet appropriate, rec CC3, Gluten [...] Daily Progress Note 07/11/25 Cristina Escobar Kevin HPI 50-year-old female with past medical [...] Vent Status (ETT, Trach Only): In use IN SUP: 5 cm H20 Insp Time (sec): 1.5 sec Vent Mode: PS FiO2 (%): 60 % S RR: 14 IN SUP: 5 cm H20 MAP (cm H2O): [...] Edited by: Cheyanne Chakraborty MD at 07/11/2025 0898 Gabriel Segovia Critical Care Performed by: Dorcas [...] Skin Protection Flowsheets Taken 07/11/2025 0030 by Briceño, Cheyanne Morris B, RN Skin Protection: incontinence pads utilized Taken [...] Prevent or Manage Infection Flowsheets Taken 07/11/2025 011 Infection Management: aseptic technique maintained Fever Reduction/Comfort [...] PM EDT Operative Note Date: 07/10/25 Location: [place] [facility] Name: Cristina Brown, : 1975, Diagnoses: Pre-op Diagnosis Necrotizing fasciitis (CMS/HCC) Post-op Diagnosis Necrotizing fasciitis (CMS/HCC) Procedure(s): Right groin/perineum/thigh/abdominal wound exploration, debridement, and washout Attending Surgeon(s): * Dorcas Hennessy - Primary Carton Counter Feeder(s): * Shelby Whittington MD - Resident - [...] 07/08/252341 Estimated Blood Loss: Minimal Drains: NG/OG Stanton Sump 14 Fr Left nostril (Active) Placement [...] 16 Fr. (Active) Site Assessment Clean;Skin intact 07/10/251199 CAUTI: Collection Container Standard drainage bag;System closed;Collection [...] Findings: All viable tissue. Wound measuring approximately [id number]. Packed with 5 kerlix tied together. Indications: Cristina Brown is an 50 y.o. female who is having surgery for Necrotizing fasciitis ([facility]). Patient presented in septic shock secondary [...] Edited by: Lidia Ellis MD at 07/10/2025 1650 Relevant review of systems was obtained as [...] Vent Status (ETT, Trach Only): In use IN SUP: 5 cm H20 Insp Time (sec): 1.5 sec Vent Mode: PS FiO2 (%): 50 % S RR: 14 IN SUP: 5 cm H20 MAP (cm H2O): 9 Output by Drain (mL) 07/08/25 0700 - 07/08/25 1859 07/08/25 1900 - 07/09/25 0659 07/09/25 07 - 07/09/25 1859 07/09/25 1900 - 07/10/25 0659 07/10/25 0700 - 07/10/25 1859 07/10/25 1900 - 07/10/25 190 Requested LDAs do not [...] Morbid (severe) obesity due to excess calories ([facility]) Yes Overview Addendum 07/09/2025 4:07 PM by Lidia Ellis MD Complicates care. Smoker Yes Overview Signed 07/09/2025 3:05 PM by Lidia Ellis MD - Patient smokes 0.5-1ppd. - Smoking cessation when appropriate. Urge incontinence Yes DM (diabetes mellitus) ([facility]) Yes Overview Addendum 07/09/2025 4:11 PM by Lidia Ellis MD - Patient hyperglycemic, up to 300s. - Insulin drip per protocol. Hidradenitis Yes Absence seizure ([facility]) (Chronic) Yes Overview Addendum 07/10/2025 4:52 PM by Lidia Ellis MD On Lamictal 50mg BID. Acute respiratory failure Yes Overview Signed 07/09/2025 3:57 PM by Lidia Ellis MD - Patient presenting in septic shock due to RLE necrotizing fasciitis. - Requiring ventilator for respiratory support. Wean as tolerated. Septic shock ([facility]) Yes Overview Addendum 07/10/2025 [...] for outside parameter Switch to plov from [facility] Started Vaso and gave 1L this AM [...] Protection: absorbent pad utilized/changed positioning supports utilized qsgm-[id number]-wiqvja areas padded fzsp-hd-[id number] areas padded Problem: Skin Injury Risk Increased [...] NUTRITION SERVICES Adult Nutrition Evaluation Note Cristina Anayaehart 50 y.o. female CSN: [id number] Room/Bed 133/133A Nutrition evaluation type: assessment Reason for evaluation: provider consult Hospital course: 50 y o F transferred from [facility] with concern for necrotizing fasciitis; OR 07/08 for excisional debridement of RLE, groin, pubis, and abdominal wall of skin, subcutaneous tissue, and muscle fascia, [id number]. Septic shock secondary to NSTI. Intubated & sedated. TF initiated 07/09. Past medical/ surgical history: Past Medical History[1], celiac disease Surgical History[2] Social history: Social History[3] Additional comments: 07/09: Pt intubated and sedated. Visitor sleeping. Vitals and Basic Assessment: BP: 89/50 Temp: 36.3 ??C (97.3 ??F) Invasive Ventilator Initiated (ETT/Trach Only): Yes Oxygen Therapy: Supplemental oxygen O2 Delivery Method: Endotracheal tube, Mechanical ventilator [place] Coma Scale Score: 10 Satnam/Cubbin Pressure Risk [...] oz) Estimated Needs: Kcal: 22-25 kcal/kg IBW (6448-2224 kcal/d) Protein: 2-2.5 g/kg IBW (136-171 g/d) [...] Surgical ICU Daily Progress Note 07/09/25 Cristina Pérezart [facility] 50-year-old female with past medical history of [...] decreased. Palpations: Abdomen is soft. Skin: Comments: 35w13km open wound with no extension of cellulitis. [...] PEEP (cmH2O): 18 S VT: 450 mL IN SUP: 10 cm H20 Insp Time (sec): 0.8 sec Vent Mode: PS FiO2 (%): 50 % S RR: 22 S VT: 450 mL IN SUP: 10 cm H20 MAP (cm H2O): 10 Output by Drain (mL) 07/07/25 07 - 07/07/25185807/07/25 190 - 07/08/25 0659 07/08/25 07 - 07/08/25 18507/08/25 1900 - 07/09/25 0659 07/09/25 07 - [...] 7 days Lab Units 07/09/25 0457 07/08/25 23507/08/25 1814 HEMOGLOBIN g/dL 11.0* 10.0* 10.9* HEMATOCRIT [...] appropriate. Urge incontinence Yes DM (diabetes mellitus) (CMS/HCC) Yes Overview Addendum 07/09/2025 4:11 PM by Lidia Ellis MD - Patient hyperglycemic, up to 300s. - Insulin drip per protocol. Hidradenitis Yes Absence seizure ([facility]) (Chronic) Yes Overview Addendum [...] PM EDT Operative Note Date: 07/08/25 Location: [place] OR Name: Cristina Escobar Kevin, : 1975, Diagnoses: Pre-op Diagnosis Necrotizing fasciitis (CMS/HCC) Post-op Diagnosis Necrotizing fasciitis (CMS/HCC) Procedure(s): Excisional debridement of right thigh, groin pubis and abdominal wall including skin, subcutaneous tissue and fascia measuring 65 x 20 x 2cm Attending Surgeon(s): * Luanne Crawford - Primary Carton Counter Feeder(s): * Kristy Fields MD - Resident - [...] Attending Surgeon(s): * Luanne Crawford - Primary Carton Counter Feeder(s): * Kristy Fields MD - Resident - [...] asthma, HLD, celiac disease, presenting to [facility] on 07/08/2025 as transfer with concern [...] mL IVPB (vial adapter required) 2 g Yhqtysxvoggm1m Deepthi Garcia MD linezolid (Zyvox) injection 600 [...] ppd), asthma, HLD, celiac disease, presenting to [facility] on 07/08/2025 as transfer with concern [...] 4% (Hibiclens). Acknowledged AMINA RAMIREZ 07/08/251916 Void manager mission to OR Once Acknowledged AMINA RAMIREZ 07/08/251916 Case Request Operating Room: IRRIGATION AND DEBRIDEMENT, WOUND Once Completed AMINA RAMIREZ 07/08/251818 Once Canceled MY CHARLES 07/08/25 181 Once Canceled DEEPTHI GARCIA 07/08/25 180 CMP [...] None Disposition Admit Admitting/Attending Physician: LUANNE CRAWFORD [[id number]] Provider Care Team: E EMERGENCY GENERAL SURGERY [...] Visit Medical Office Building Urology [address], [address] [place] [address] Deepthi Matamoros, PUBLIC INFORMATION COORDINATOR [address] [place] [address] 08/20/2025 10:30 AM EDT Office Visit [facility] Surgery [address], [address] [place] [address] Lilliana Morfin, PUBLIC INFORMATION COORDINATOR [address] [place] [id number] Scheduled Referrals Name Type Priority Associated Diagnoses Order Schedule Discharge Ambulatory referral to NON Endocrinology Outpatient Referral Routine Morbid (severe) obesity due to excess calories (CMS/[facility]) Type 2 diabetes mellitus with hyperglycemia, without long-term current use of insulin ([facility]) Celiac disease Expected: 07/15/2025 [...] UNSOLICITED RESULTS Routine 07/11/2025 9:57 AM EDT IN CRITICAL CARE, E/M 30-74 MINUTES Routine 07/11/2025 [...] ECG ADULT STAT 07/10/2025 8:42 AM EDT IN CRITICAL CARE, E/M 30-74 MINUTES Routine 07/10/2025 8:15 AM EDT Necrotizing fasciitis (CMS/HCC) Morbid (severe) obesity due to excess calories (CMS/HCC) Septic shock (CMS/[facility]) Acute respiratory failure with hypoxia POCT [...] CO2 MONITORING Routine 07/09/2025 8:00 AM EDT IN CRITICAL CARE, E/M 30-74 MINUTES Routine 07/09/2025 [...] PANEL, PLASMA STAT 07/08/2025 6:14 PM EDT IN CRITICAL CARE, E/M 30-74 MINUTES Routine 07/08/2025 5:58 PM EDT documented in this encounter Results * (ABNORMAL) POCT glucose meter (07/19/2025 12:27 PM EDT) Pathologist [facility] POCT Glucose 197(H) 74 - 99 mg/dL [...] Comment 07/19/2025 5:32 PM EDT HEALTHCARE LAB Linker Up ID Laura Baez 025 5:32 PM EDT HEALTHCARE LAB Device ID [id number] 07/19/2025 5:32 PM EDT HEALTHCARE LAB Specimen Type POC Capillary 07/19/2025 5:32 PM EDT [facility]ARE LAB Blood Capillary blood specimen / Unknown 07/19/2025 12:27 PM EDT 07/19/2025 5:32 PM EDT us Anne Franco MD LAB POINT OF CARE TEST DOCKED DEVICE UNSOLICITED RESULTS Final Result [facility] [address] [place] [address] * Phosphorus (07/19/2025 4:28 AM EDT) Phosphorus, Plasma 3.6 2.5 - 4.5 mg/dL 07/19/2025 5:03 AM EDT [facility] Blood Venous blood specimen / Unknown Venipuncture / Unknown 07/19/2025 4:28 AM EDT 07/19/2025 4:35 AM EDT Anne Franco MD LAB BLOOD ORDERABLES Sarah l Result Performing Organization Address City/[facility]/ZIP Co de Phone Number [facility] [address] [place] [address] * (ABNORMAL) Magnesium (07/19/2025 4:28 AM EDT) Magnesium, Plasma 1.8(L) 1.9 - 2.4 mg/dL 07/19/2025 5:03 AM EDT [facility] Blood Venous blood specimen / Unknown Venipuncture / Unknown 07/19/2025 4:28 AM EDT 07/19/2025 4:35 AM EDT Anne Franco MD LAB BLOOD ORDERABLES Sarah l Result Performing Organization Address City/[facility]/ZIP Co de Phone Number [facility] [address] [place] [address] * (ABNORMAL) CBC W/O Differential (07/19/2025 4:28 AM EDT) WBC Count 18.39(H) 3.70 - 10.30 10*3/uL LAB HEMATOLOGY METHOD 07/19/2025 4:51 AM EDT [facility] RBC Count 3.50(L) 3.90 - 5.20 10*6/uL LAB HEMATOLOGY METHOD 07/19/2025 4:51 AM EDT [facility] HGB 9.6(L) 11.2 - 15.7 g/dL LAB HEMATOLOGY METHOD 07/19/2025 4:51 AM EDT [facility] HCT 30.7(L) 34.0 - 45.0 % LAB HEMATOLOGY METHOD 07/19/2025 4:51 AM EDT [facility] Platelet Count 627(H) 155 - 369 10*3/uL LAB HEMATOLOGY METHOD 07/19/2025 4:51 AM EDT [facility] MCV 88 79 - 98 fL LAB HEMATOLOGY METHOD 07/19/2025 4:51 AM EDT [facility] MCH 27.4 26.0 - 32.0 pg LAB HEMATOLOGY METHOD 07/19/2025 4:51 AM EDT [facility] MCHC 31.3 30.7 - 35.5 g/dL LAB HEMATOLOGY METHOD 07/19/2025 4:51 AM EDT [facility] RDW 18.2(H) 11.5 - 14.5 % LAB HEMATOLOGY METHOD 07/19/2025 4:51 AM EDT [facility] MPV 10.2 8.8 - 12.5 fL LAB HEMATOLOGY METHOD 07/19/2025 4:51 AM EDT [facility] nRBC 0.1(H) <=0.0 per 100 WBCs LAB HEMATOLOGY METHOD 07/19/2025 4:51 AM EDT [facility] Blood Venous blood specimen / Unknown Venipuncture / Unknown 07/19/2025 4:28 AM EDT 07/19/2025 4:36 AM EDT us Anne Franco MD LAB BLOOD ORDERABLES Sarah bennett Result [facility] [address] [place] [address] * (ABNORMAL) Basic metabolic panel (07/19/2025 4:28 AM EDT) Glucose, Plasma 153(H) 74 - 99 mg/dL 07/19/2025 5:03 AM EDT [facility] BUN, Plasma 14 7 - 21 mg/dL 07/19/2025 5:03 AM EDT [facility] Creatinine, Plasma 0.73 0.60 - 1.10 mg/dL 07/19/2025 5:03 AM EDT [facility] BUN/Creatinine Ratio 19 07/19/2025 5:03 AM EDT [facility] Sodium, Plasma 137 136 - 145 mmol/L 07/19/2025 5:03 AM EDT [facility] Potassium, Plasma 4.3 3.6 - 4.9 mmol/L 07/19/2025 5:03 AM EDT [facility] Chloride, Plasma 97 97 - 107 mmol/L 07/19/2025 5:03 AM EDT [facility] CO2, Plasma 28 22 - 29 mmol/L 07/19/2025 5:03 AM EDT [facility] Anion Gap 12 6 - 16 mmol/L 07/19/2025 5:03 AM EDT [facility] Total Calcium, Plasma 9.0 8.9 - 10.2 mg/dL 07/19/2025 5:03 AM EDT [facility] eGFRcr 101.0 mL/min/1.7 3m*2 07/19/2025 5:03 AM EDT [facility] Comment:Reported eGFRcr in m L/min/1.73m2 is based the CKD-EPI 2020 equation that does not use a race coefficient. Blood Venous blood specimen / Unknown Venipuncture / Unknown 07/19/2025 4:28 AM EDT 07/19/2025 4:35 AM EDT us Anne Franco MD LAB BLOOD ORDERABLES Sarah l Result [facility] [address] [place] [address] * (ABNORMAL) POCT glucose meter (07/18/2025 8:33 PM EDT) POCT Glucose 141(H) 74 - 99 mg/dL 07/18/2025 8:36 PM EDT [facility] Comment:Accuracy of a glucos e result [...] Comment 07/18/2025 8:36 PM EDT HEALTHCARE LAB Linker Up ID Zach Martinez 8:36 PM EDT HEALTHCARE LAB Device ID [id number] 07/18/2025 8:36 PM EDT [facility]ALTH[facility]ARE LAB Specimen Type POC Capillary 07/18/2025 8:36 PM EDT [facility] Blood Capillary blood specimen / Unknown 07/18/2025 8:33 PM EDT 07/18/2025 8:36 PM EDT Anne Franco MD LAB POINT OF CARE TEST DOCKED DEVICE UNSOLICITED RESULTS Final Result Performing Organization Address City/[facility] Co de Phone Number [facility] [address] [place] [address] * (ABNORMAL) POCT glucose meter (07/18/2025 6:07 PM EDT) [facility] POCT Glucose 222(H) 74 - 99 mg/dL [...] Comment 07/18/2025 6:08 PM EDT HEALTHCARE LAB Linker Up ID Monique Jacques 6:08 PM EDT HEALTHCARE LAB Device ID [id number] 07/18/2025 6:08 PM EDT HEALTH[facility]ARE LAB Specimen Type POC Capillary 07/18/2025 6:08 PM EDT [facility]ARE [facility] Blood Capillary blood specimen / Unknown 07/18/2025 6:07 PM EDT 07/18/2025 6:08 PM EDT us Anne Franco MD LAB POINT OF CARE TEST DOCKED DEVICE UNSOLICITED RESULTS Final Result [facility] [address] [place] [address] * (ABNORMAL) POCT glucose meter (07/18/2025 12:36 PM EDT) [facility] POCT Glucose 151(H) 74 - 99 mg/dL [...] 07/18/2025 12:38 PM EDT [facility] Linker Up ID Laura Baez 025 12:38 PM EDT HEALTHCARE LAB Device ID [id number] 07/18/2025 12:38 PM EDT [facility]ALTHCARE LAB Specimen Type POC Capillary 07/18/2025 12:38 PM EDT [facility]ARE [facility] Blood Capillary blood specimen / Unknown 07/18/2025 12:36 PM EDT 07/18/2025 12:38 PM EDT Anne Franco MD LAB POINT OF CARE TEST DOCKED DEVICE UNSOLICITED RESULTS Final Result Performing Organization Address City/State/[facility] Co de Phone Number [facility]ARE LAB [address] [place] [address] * (ABNORMAL) POCT glucose meter (07/18/2025 8:39 AM EDT) [facility] POCT Glucose 149(H) 74 - 99 mg/dL [...] 07/18/2025 8:41 AM EDT [facility] Linker Up ID Laura Baez 025 8:41 AM EDT [facility] Device ID [id number] 07/18/2025 8:41 AM EDT [facility] Specimen Type POC Capillary 07/18/2025 8:41 AM EDT [facility] Blood Capillary blood specimen / Unknown 07/18/2025 8:39 AM EDT 07/18/2025 8:41 AM EDT us Anne Franco MD LAB POINT OF CARE TEST DOCKED DEVICE UNSOLICITED RESULTS Final Result [facility] [address] [place] [address] * (ABNORMAL) Basic metabolic panel (07/18/2025 6:03 AM EDT) Glucose, Plasma 163(H) 74 - 99 mg/dL 07/18/2025 6:45 AM EDT [facility] BUN, Plasma 11 7 - 21 mg/dL 07/18/2025 6:45 AM EDT [facility] Creatinine, Plasma 0.65 0.60 - 1.10 mg/dL 07/18/2025 6:45 AM EDT [facility] BUN/Creatinine Ratio 17 07/18/2025 6:45 AM EDT [facility] Sodium, Plasma 138 136 - 145 mmol/L 07/18/2025 6:45 AM EDT [facility] Potassium, Plasma 3.8 3.6 - 4.9 mmol/L 07/18/2025 6:45 AM EDT [facility] Chloride, Plasma 99 97 - 107 mmol/L 07/18/2025 6:45 AM EDT [facility] CO2, Plasma 29 22 - 29 mmol/L 07/18/2025 6:45 AM EDT [facility] Anion Gap 10 6 - 16 mmol/L 07/18/2025 6:45 AM EDT [facility] Total Calcium, Plasma 8.5(L) 8.9 - 10.2 mg/dL 07/18/2025 6:45 AM EDT [facility] eGFRcr 108.1 mL/min/1.7 3m*2 07/18/2025 6:45 AM EDT [facility] Comment:Reported eGFRcr in m L/min/1.73m2 is based the CKD-EPI 2020 equation that does not use a race coefficient. Blood Venous blood specimen / Unknown Venipuncture / Unknown 07/18/2025 6:03 AM EDT 07/18/2025 6:12 AM EDT us Anne Franco MD LAB BLOOD ORDERABLES Sarah bennett Result [facility] [address] [place] [address] * (ABNORMAL) CBC W/O Differential (07/18/2025 6:03 AM EDT) WBC Count 16.76(H) 3.70 - 10.30 10*3/uL LAB HEMATOLOGY METHOD 07/18/2025 6:25 AM EDT [facility] RBC Count 3.25(L) 3.90 - 5.20 10*6/uL LAB HEMATOLOGY METHOD 07/18/2025 6:25 AM EDT [facility] HGB 9.1(L) 11.2 - 15.7 g/dL LAB HEMATOLOGY METHOD 07/18/2025 6:25 AM EDT [facility] HCT 28.8(L) 34.0 - 45.0 % LAB HEMATOLOGY METHOD 07/18/2025 6:25 AM EDT [facility] Platelet Count 523(H) 155 - 369 10*3/uL LAB HEMATOLOGY METHOD 07/18/2025 6:25 AM EDT [facility] MCV 89 79 - 98 fL LAB HEMATOLOGY METHOD 07/18/2025 6:25 AM EDT [facility] MCH 28.0 26.0 - 32.0 pg LAB HEMATOLOGY METHOD 07/18/2025 6:25 AM EDT [facility] MCHC 31.6 30.7 - 35.5 g/dL LAB HEMATOLOGY METHOD 07/18/2025 6:25 AM EDT [facility] RDW 17.6(H) 11.5 - 14.5 % LAB HEMATOLOGY METHOD 07/18/2025 6:25 AM EDT [facility] MPV 10.3 8.8 - 12.5 fL LAB HEMATOLOGY METHOD 07/18/2025 6:25 AM EDT [facility] nRBC 0.0 <=0.0 per 100 WBCs LAB HEMATOLOGY METHOD 07/18/2025 6:25 AM EDT [facility] Blood Venous blood specimen / Unknown Venipuncture / Unknown 07/18/2025 6:03 AM EDT 07/18/2025 6:12 AM EDT Anne Franco MD LAB BLOOD ORDERABLES Sarah l Result Performing Organization Address City/[facility]/ZIP Co de Phone Number [facility] [address] [place] [address] * (ABNORMAL) POCT glucose meter (07/17/2025 10:33 [...] Comment 07/17/2025 10:35 PM EDT HEALTHCARE LAB Linker Up ID Nipper, 07/17/2025 10:35 PM EDT HEALTHCARE LAB Device ID [id number] 07/17/2025 10:35 PM EDT HEALTHCARE LAB Specimen Type POC Capillary 07/17/2025 10:35 PM EDT [facility] Blood Capillary blood specimen / Unknown 07/17/2025 10:33 PM EDT 07/17/2025 10:35 PM EDT Anne Franco MD LAB POINT OF CARE TEST DOCKED DEVICE UNSOLICITED RESULTS Final Result [facility] [address] [place] [address] * PERIPHERAL IV (SMART[employer] LINK) (07/17/2025 5:14 PM EDT) Narrative Arturo Mancilla, RN - 07/17/2025 5:14 PM EDT Arturo Mancilla, RN 07/17/2025 5:14 PM Insert peripheral IV [...] Comment 07/17/2025 5:12 PM EDT HEALTHCARE LAB Linker Up ID Monique Jacques 5:12 PM EDT [facility] Device ID [id number] 07/17/2025 5:12 PM EDT [facility] Specimen Type POC Capillary 07/17/2025 5:12 PM EDT HEALTHCARE LAB Blood Capillary blood specimen / Unknown 07/17/2025 5:10 PM EDT 07/17/2025 5:12 PM EDT Anne Franco MD LAB POINT OF CARE TEST DOCKED DEVICE UNSOLICITED RESULTS Final Result [facility] [address] [place] [address] * (ABNORMAL) POCT glucose meter (07/17/2025 12:06 [...] Comment 07/17/2025 12:07 PM EDT HEALTHCARE LAB Linker Up ID Josi Ann 12:07 PM EDT HEALTHCARE LAB Device ID [id number] 07/17/2025 12:07 PM EDT HEALTHCARE LAB Specimen Type POC Capillary 07/17/2025 12:07 PM EDT [facility]ARE LAB Blood Capillary blood specimen / Unknown 07/17/2025 12:06 PM EDT 07/17/2025 12:07 PM EDT us Anne Franco MD LAB POINT OF CARE TEST DOCKED DEVICE UNSOLICITED RESULTS Final Result Performing Organization Address City/State/[facility] Phone Number [facility]ARE [facility] [address] [place] [address] * US Extremity Limited MSK or Soft [...] Detected Not Detected 07/17/2025 12:[address] [facility] Both anterior nares / Unknown Non-blood Collection / Unknown 07/17/2025 10:14 AM EDT 07/17/2025 10:33 AM EDT Narrative [facility] - 07/17/2025 12:11 PM EDT [...] MICROBIOLOGY - GENERAL ORDER LUANNE Final Result [facility] [address] [place] [address] * (ABNORMAL) POCT glucose meter (07/17/2025 9:35 AM EDT) POCT Glucose 139(H) 74 - 99 mg/dL 07/17/2025 9:37 AM EDT [facility] Comment:Accuracy of a glucos [...] Comment 07/17/2025 9:37 AM EDT HEALTHCARE LAB Linker Up ID Josi Ann 9:37 AM EDT HEALTHCARE LAB Device ID [id number] 07/17/2025 9:37 AM EDT HEALTHCARE LAB Specimen Type POC Capillary 07/17/2025 9:37 AM EDT [facility]ARE LAB Blood Capillary blood specimen / Unknown 07/17/2025 9:35 AM EDT 07/17/2025 9:37 AM EDT us Anne Franco MD LAB POINT OF CARE TEST DOCKED DEVICE UNSOLICITED RESULTS Final Result [facility] [address] [place] [address] * (ABNORMAL) Basic metabolic panel (07/17/2025 5:20 AM EDT) Glucose, Plasma 140(H) 74 - 99 mg/dL 07/17/2025 5:56 AM EDT [facility] BUN, Plasma 8 7 - 21 mg/dL 07/17/2025 5:56 AM EDT [facility] Creatinine, Plasma 0.59(L) 0.60 - 1.10 mg/dL 07/17/2025 5:56 AM EDT [facility] BUN/Creatinine Ratio 14 07/17/2025 5:56 AM EDT [facility] Sodium, Plasma 139 136 - 145 mmol/L 07/17/2025 5:56 AM EDT [facility] Potassium, Plasma 3.8 3.6 - 4.9 mmol/L 07/17/2025 5:56 AM EDT [facility] Chloride, Plasma 97 97 - 107 mmol/L 07/17/2025 5:56 AM EDT [facility] CO2, Plasma 31(H) 22 - 29 mmol/L 07/17/2025 5:56 AM EDT [facility] Anion Gap 11 6 - 16 mmol/L 07/17/2025 5:56 AM EDT [facility] Total Calcium, Plasma 8.6(L) 8.9 - 10.2 mg/dL 07/17/2025 5:56 AM EDT [facility] eGFRcr 110.6 mL/min/1.7 3m*2 07/17/2025 5:56 AM EDT [facility] Comment:Reported eGFRcr in m L/min/1.73m2 is based the CKD-EPI 2020 equation that does not use a race coefficient. Blood Venous blood specimen / Unknown Venipuncture / Unknown 07/17/2025 5:20 AM EDT 07/17/2025 5:27 AM EDT us Anne Franco MD LAB BLOOD ORDERABLES Sarah l Result Performing Organization Address City/[facility]/ZIP Co de Phone Number [facility] [address] [place] [address] * Phosphorus, Plasma (07/17/2025 5:20 AM EDT) Phosphorus, Plasma 3.0 2.5 - 4.5 mg/dL 07/17/2025 5:56 AM EDT [facility] Blood Venous blood specimen / Unknown Venipuncture / Unknown 07/17/2025 5:20 AM EDT 07/17/2025 5:27 AM EDT us Anne Franco MD LAB BLOOD ORDERABLES Sarah l Result Performing Organization Address City/[facility] Co de Phone Number [facility] [address] [place] [address] * (ABNORMAL) Magnesium, Plasma (07/17/2025 5:20 AM EDT) Magnesium, Plasma 1.8(L) 1.9 - 2.4 mg/dL 07/17/2025 5:56 AM EDT [facility] Blood Venous blood specimen / Unknown Venipuncture / Unknown 07/17/2025 5:20 AM EDT 07/17/2025 5:27 AM EDT us Anne Franco MD LAB BLOOD ORDERABLES Sarah l Result [facility] [address] [place] [address] * (ABNORMAL) CBC W/O Differential (07/17/2025 5:20 AM EDT) WBC Count 22.29(H) 3.70 - 10.30 10*3/uL LAB HEMATOLOGY METHOD 07/17/2025 5:37 AM EDT [facility] RBC Count 3.36(L) 3.90 - 5.20 10*6/uL LAB HEMATOLOGY METHOD 07/17/2025 5:37 AM EDT [facility] HGB 9.2(L) 11.2 - 15.7 g/dL LAB HEMATOLOGY METHOD 07/17/2025 5:37 AM EDT [facility] HCT 29.4(L) 34.0 - 45.0 % LAB HEMATOLOGY METHOD 07/17/2025 5:37 AM EDT [facility] Platelet Count 484(H) 155 - 369 10*3/uL LAB HEMATOLOGY METHOD 07/17/2025 5:37 AM EDT [facility] MCV 88 79 - 98 fL LAB HEMATOLOGY METHOD 07/17/2025 5:37 AM EDT [facility] MCH 27.4 26.0 - 32.0 pg LAB HEMATOLOGY METHOD 07/17/2025 5:37 AM EDT [facility] MCHC 31.3 30.7 - 35.5 g/dL LAB HEMATOLOGY METHOD 07/17/2025 5:37 AM EDT [facility] RDW 17.3(H) 11.5 - 14.5 % LAB HEMATOLOGY METHOD 07/17/2025 5:37 AM EDT [facility] MPV 10.4 8.8 - 12.5 fL LAB HEMATOLOGY METHOD 07/17/2025 5:37 AM EDT [facility] nRBC 0.1(H) <=0.0 per 100 WBCs LAB HEMATOLOGY METHOD 07/17/2025 5:37 AM EDT [facility] Blood Venous blood specimen / Unknown Venipuncture / Unknown 07/17/2025 5:20 AM EDT 07/17/2025 5:27 AM EDT us Anne Franco MD LAB BLOOD ORDERABLES Sarah l Result [facility] [address] [place] [address] * (ABNORMAL) POCT glucose meter (07/16/2025 8:24 PM EDT) Pathologist [facility] POCT Glucose 162(H) 74 - 99 [...] Comment 07/16/2025 8:26 PM EDT HEALTHCARE LAB Linker Up ID Lacie Marcelo 07/16/20 8:26 PM EDT HEALTHCARE LAB Device ID [id number] 07/16/2025 8:26 PM EDT [facility] Specimen Type POC Capillary 07/16/2025 8:26 PM EDT [facility] Blood Capillary blood specimen / Unknown 07/16/2025 8:24 PM EDT 07/16/2025 8:26 PM EDT Anne Franco MD LAB POINT OF CARE TEST DOCKED DEVICE UNSOLICITED RESULTS Final Result [facility] [address] [place] [address] * (ABNORMAL) POCT glucose meter (07/16/2025 5:34 PM EDT) Pathologist [facility] POCT Glucose 190(H) 74 - 99 [...] 07/16/2025 5:36 PM EDT [facility] Linker Up ID Diego Munroe 07/16/20 25 5:36 PM EDT HEALTHCARE LAB Device ID [id number] 07/16/2025 5:36 PM EDT HEALTHCARE LAB Specimen Type POC Capillary 07/16/2025 5:36 PM EDT [facility] Blood Capillary blood specimen / Unknown 07/16/2025 5:34 PM EDT 07/16/2025 5:36 PM EDT Anne Franco MD LAB POINT OF CARE TEST DOCKED DEVICE UNSOLICITED RESULTS Final Result Performing Organization Address City/[facility] Co de Phone Number [facility] [address] [place] [address] * (ABNORMAL) POCT glucose meter (07/16/2025 12:06 [...] Comment 07/16/2025 12:08 PM EDT HEALTHCARE LAB Linker Up ID Diego Munroe 07/16/20 12:08 PM EDT HEALTHCARE LAB Device ID [id number] 07/16/2025 12:08 PM EDT HEALTHCARE LAB Specimen Type POC Capillary 07/16/2025 12:08 PM EDT [facility] Blood Capillary blood specimen / Unknown 07/16/2025 12:06 PM EDT 07/16/2025 12:08 PM EDT Anne Franco MD LAB POINT OF CARE TEST DOCKED DEVICE UNSOLICITED RESULTS Final Result Performing Organization Address City/[facility]/ZIP Co de Phone Number [facility] [address] [place] [address] * XR Chest 1 View (07/16/2025 11:25 [...] for testing. Comment 07/16/2025 8:24 AM EDT [facility] Linker Up ID Diego Munroe 07/16/20 8:24 AM EDT [facility] Device ID [id number] 07/16/2025 8:24 AM EDT [facility] Specimen Type POC Capillary 07/16/2025 8:24 AM EDT [facility] Blood Capillary blood specimen / Unknown 07/16/2025 8:22 AM EDT 07/16/2025 8:24 AM EDT Anne Franco MD LAB POINT OF CARE TEST DOCKED DEVICE UNSOLICITED RESULTS Final Result [facility] [address] [place], [place] [id number] * Phosphorus (07/16/2025 5:25 AM EDT) Phosphorus, Plasma 2.8 2.5 - 4.5 mg/dL 07/16/2025 7:12 AM EDT [facility] Blood Venous blood specimen / Unknown Venipuncture / Unknown 07/16/2025 5:25 AM EDT 07/16/2025 5:33 AM EDT Anne Franco MD LAB BLOOD ORDERABLES Sarah l Result [facility] [address] [place] [address] * (ABNORMAL) Magnesium (07/16/2025 5:25 AM EDT) Magnesium, Plasma 1.8(L) 1.9 - 2.4 mg/dL 07/16/2025 7:12 AM EDT [facility] Blood Venous blood specimen / Unknown Venipuncture / Unknown 07/16/2025 5:25 AM EDT 07/16/2025 5:33 AM EDT Anne Franco MD LAB BLOOD ORDERABLES Sarah l Result Performing Organization Address [facility]/ZIP Co de Phone Number [facility] [address] [place] [address] * (ABNORMAL) Basic metabolic panel (07/16/2025 5:25 AM EDT) Glucose, Plasma 149(H) 74 - 99 mg/dL 07/16/2025 6:01 AM EDT [facility] BUN, Plasma 9 7 - 21 mg/dL 07/16/2025 6:01 AM EDT [facility] Creatinine, Plasma 0.48(L) 0.60 - 1.10 mg/dL 07/16/2025 6:01 AM EDT [facility] BUN/Creatinine Ratio 19 07/16/2025 6:01 AM EDT [facility] Sodium, Plasma 140 136 - 145 mmol/L 07/16/2025 6:01 AM EDT [facility] Potassium, Plasma 3.4(L) 3.6 - 4.9 mmol/L 07/16/2025 6:01 AM EDT [facility] Chloride, Plasma 99 97 - 107 mmol/L 07/16/2025 6:01 AM EDT [facility] CO2, Plasma 31(H) 22 - 29 mmol/L 07/16/2025 6:01 AM EDT [facility] Anion Gap 10 6 - 16 mmol/L 07/16/2025 6:01 AM EDT [facility] Total Calcium, Plasma 8.6(L) 8.9 - 10.2 mg/dL 07/16/2025 6:01 AM EDT [facility] eGFRcr 116.3 mL/min/1.7 3m*2 07/16/2025 6:01 AM EDT [facility] Comment:Reported eGFRcr in m L/min/1.73m2 is based the CKD-EPI 2020 equation that does not use a race coefficient. Blood Venous blood specimen / Unknown Venipuncture / Unknown 07/16/2025 5:25 AM EDT 07/16/2025 5:33 AM EDT us Anne Franco MD LAB BLOOD ORDERABLES Sarah bennett Result [facility] [address] [place] [address] * (ABNORMAL) CBC W/O Differential (07/16/2025 5:25 AM EDT) WBC Count 22.22(H) 3.70 - 10.30 10*3/uL LAB HEMATOLOGY METHOD 07/16/2025 5:41 AM EDT [facility] RBC Count 3.30(L) 3.90 - 5.20 10*6/uL LAB HEMATOLOGY METHOD 07/16/2025 5:41 AM EDT [facility] HGB 8.9(L) 11.2 - 15.7 g/dL LAB HEMATOLOGY METHOD 07/16/2025 5:41 AM EDT [facility] HCT 28.9(L) 34.0 - 45.0 % LAB HEMATOLOGY METHOD 07/16/2025 5:41 AM EDT [facility] Platelet Count 376(H) 155 - 369 10*3/uL LAB HEMATOLOGY METHOD 07/16/2025 5:41 AM EDT [facility] MCV 88 79 - 98 fL LAB HEMATOLOGY METHOD 07/16/2025 5:41 AM EDT [facility] MCH 27.0 26.0 - 32.0 pg LAB HEMATOLOGY METHOD 07/16/2025 5:41 AM EDT [facility] MCHC 30.8 30.7 - 35.5 g/dL LAB HEMATOLOGY METHOD 07/16/2025 5:41 AM EDT [facility] RDW 17.2(H) 11.5 - 14.5 % LAB HEMATOLOGY METHOD 07/16/2025 5:41 AM EDT [facility] MPV 10.3 8.8 - 12.5 fL LAB HEMATOLOGY METHOD 07/16/2025 5:41 AM EDT [facility] nRBC 0.1(H) <=0.0 per 100 WBCs LAB HEMATOLOGY METHOD 07/16/2025 5:41 AM EDT [facility] Blood Venous blood specimen / Unknown Venipuncture / Unknown 07/16/2025 5:25 AM EDT 07/16/2025 5:33 AM EDT us Anne Franco MD LAB BLOOD ORDERABLES Sarah l Result [facility] [address] [place] [address] * (ABNORMAL) POCT glucose meter (07/15/2025 9:38 [...] Comment 07/15/2025 9:39 PM EDT [facility] Linker Up ID Yessenia Ramirez 9:39 PM EDT [facility] Device ID [id number] 07/15/2025 9:39 PM EDT [facility] Specimen Type POC Capillary 07/15/2025 9:39 PM EDT [facility] Blood Capillary blood specimen / Unknown 07/15/2025 9:38 PM EDT 07/15/2025 9:39 PM EDT us Anne Franco MD LAB POINT OF CARE TEST DOCKED DEVICE UNSOLICITED RESULTS Final Result [facility] [address] [place] [address] * (ABNORMAL) POCT glucose meter (07/15/2025 6:03 PM EDT) POCT Glucose 234(H) 74 - 99 mg/dL 07/15/2025 6:04 PM EDT [facility] Comment:Accuracy of a [...] Comment 07/15/2025 6:04 PM EDT [facility] Linker Up ID Brennan Venessa 07/15/2025 6:04 PM EDT [facility] LAB Device ID [id number] 07/15/2025 6:04 PM EDT [facility] Specimen Type POC Capillary 07/15/2025 6:04 PM EDT [facility] Blood Capillary blood specimen / Unknown 07/15/2025 6:03 PM EDT 07/15/2025 6:04 PM EDT us Anne Franco MD LAB POINT OF CARE TEST DOCKED DEVICE UNSOLICITED RESULTS Final Result [facility] [address] [place] [address] * (ABNORMAL) POCT glucose meter (07/15/2025 12:38 PM EDT) Pathologist [facility] POCT Glucose 153(H) 74 - 99 [...] 07/15/2025 12:40 PM EDT [facility] Linker Up ID Venessa Amin 07/15/2025 12:40 PM EDT [facility] LAB Device ID [id number] 07/15/2025 12:40 PM EDT [facility] Specimen Type POC Capillary 07/15/2025 12:40 PM EDT [facility] Blood Capillary blood specimen / Unknown 07/15/2025 12:38 PM EDT 07/15/2025 12:40 PM EDT us Anne Franco MD LAB POINT OF CARE TEST DOCKED DEVICE UNSOLICITED RESULTS Final Result Performing Organization Address City/[facility] Co de Phone Number [facility] [address] [place] [address] * (ABNORMAL) POCT glucose meter (07/15/2025 8:38 AM EDT) [facility] POCT Glucose 132(H) 74 - 99 mg/dL [...] Comment 07/15/2025 8:39 AM EDT [facility] Linker Up ID Venessa Amin 07/15/2025 8:39 AM EDT [facility] LAB Device ID [id number] 07/15/2025 8:39 AM EDT [facility] Specimen Type POC Capillary 07/15/2025 8:39 AM EDT [facility] Blood Capillary blood specimen / Unknown 07/15/2025 8:38 AM EDT 07/15/2025 8:39 AM EDT us Anne Franco MD LAB POINT OF CARE TEST DOCKED DEVICE UNSOLICITED RESULTS Final Result Performing Organization Address City/[facility]/ZIP Co de Phone Number [facility] [address] [place] [address] * (ABNORMAL) Phosphorus (07/15/2025 4:50 AM EDT) [facility] Phosphorus, Plasma 2.3(L) 2.5 - 4.5 mg/dL 07/15/2025 7:33 AM EDT [facility] Blood Venous blood specimen / Unknown Venipuncture / Unknown 07/15/2025 4:50 AM EDT 07/15/2025 4:59 AM EDT us Anne Franco MD LAB BLOOD ORDERABLES Sarah l Result Performing Organization Address City/[facility] Co de Phone Number [facility] [address] [place] [address] * Magnesium (07/15/2025 4:50 AM EDT) [facility] Magnesium, Plasma 1.9 1.9 - 2.4 mg/dL 07/15/2025 7:33 AM EDT [facility] Blood Venous blood specimen / Unknown Venipuncture / Unknown 07/15/2025 4:50 AM EDT 07/15/2025 4:59 AM EDT us Anne Franco MD LAB BLOOD ORDERABLES Sarah l Result Performing Organization Address City/[facility] de Phone Number [facility] [address] [place] [address] * (ABNORMAL) Basic metabolic panel (07/15/2025 4:50 AM EDT) [facility] Glucose, Plasma 150(H) 74 - 99 mg/dL 07/15/2025 5:31 AM EDT [facility] BUN, Plasma 11 7 - 21 mg/dL 07/15/2025 5:31 AM EDT [facility] Creatinine, Plasma 0.54(L) 0.60 - 1.10 mg/dL 07/15/2025 5:31 AM EDT [facility] BUN/Creatinine Ratio 20 07/15/2025 5:31 AM EDT [facility] Sodium, Plasma 136 136 - 145 mmol/L 07/15/2025 5:31 AM EDT [facility] Potassium, Plasma 4.1 3.6 - 4.9 mmol/L 07/15/2025 5:31 AM EDT [facility] Chloride, Plasma 95(L) 97 - 107 mmol/L 07/15/2025 5:31 AM EDT [facility] CO2, Plasma 32(H) 22 - 29 mmol/L 07/15/2025 5:31 AM EDT [facility] Anion Gap 9 6 - 16 mmol/L 07/15/2025 5:31 AM EDT [facility] Total Calcium, Plasma 8.8(L) 8.9 - 10.2 mg/dL 07/15/2025 5:31 AM EDT [facility] eGFRcr 113.0 mL/min/1.7 3m*2 07/15/2025 5:31 AM EDT [facility] Comment:Reported eGFRcr in m L/min/1.73m2 is based the CKD-EPI 2020 equation that does not use a race coefficient. Blood Venous blood specimen / Unknown Venipuncture / Unknown 07/15/2025 4:50 AM EDT 07/15/2025 4:59 AM EDT us Anne Franco MD LAB BLOOD ORDERABLES Sarah bennett Result [facility] [address] [place] [address] * (ABNORMAL) POCT glucose meter (07/14/2025 7:57 [...] Comment 07/14/2025 7:58 PM EDT [facility] Linker Up ID Bernard Chirinos 07/14/20 7:58 PM EDT [facility]ALTH[facility] LAB Device ID [id number] 07/14/2025 7:58 PM EDT [facility] Specimen Type POC Capillary 07/14/2025 7:58 PM EDT [facility] Blood Capillary blood specimen / Unknown 07/14/2025 7:57 PM EDT 07/14/2025 7:58 PM EDT Anne Franco MD LAB POINT OF CARE TEST DOCKED DEVICE UNSOLICITED RESULTS Final Result Performing Organization Address City/[facility]/ZIP Co de Phone Number [facility] [address] [place] [address] * (ABNORMAL) POCT glucose meter (07/14/2025 4:56 [...] Comment 07/14/2025 4:58 PM EDT [facility] Linker Up ID Riana Higgins 07/14/2025 4:58 PM EDT [facility] LAB Device ID [id number] 07/14/2025 4:58 PM EDT [facility] Specimen Type POC Capillary 07/14/2025 4:58 PM EDT [facility] Blood Capillary blood specimen / Unknown 07/14/2025 4:56 PM EDT 07/14/2025 4:58 PM EDT Anne Franco MD LAB POINT OF CARE TEST DOCKED DEVICE UNSOLICITED RESULTS Final Result [facility] [address] [place] [address] * (ABNORMAL) POCT glucose meter (07/14/2025 12:38 [...] Comment 07/14/2025 12:39 PM EDT [facility] Linker Up ID Laura Baez 025 12:39 PM EDT [facility] Device ID [id number] 07/14/2025 12:39 PM EDT [facility] Specimen Type POC Capillary 07/14/2025 12:39 PM EDT [facility] Blood Capillary blood specimen / Unknown 07/14/2025 12:38 PM EDT 07/14/2025 12:39 PM EDT us Anne Franco MD LAB POINT OF CARE TEST DOCKED DEVICE UNSOLICITED RESULTS Final Result Performing Organization Address City/State/[facility] Co de Phone Number [facility] [address] [place] [address] * (ABNORMAL) Basic metabolic panel (07/14/2025 9:36 AM EDT) Glucose, Plasma 191(H) 74 - 99 mg/dL 07/14/2025 10:15 AM EDT [facility] BUN, Plasma 16 7 - 21 mg/dL 07/14/2025 10:15 AM EDT [facility] Creatinine, Plasma 0.61 0.60 - 1.10 mg/dL 07/14/2025 10:15 AM EDT [facility] BUN/Creatinine Ratio 26 07/14/2025 10:15 AM EDT [facility] Sodium, Plasma 138 136 - 145 mmol/L 07/14/2025 10:15 AM EDT [facility] Potassium, Plasma 3.2(L) 3.6 - 4.9 mmol/L 07/14/2025 10:15 AM EDT [facility] Chloride, Plasma 96(L) 97 - 107 mmol/L 07/14/2025 10:15 AM EDT [facility] CO2, Plasma 33(H) 22 - 29 mmol/L 07/14/2025 10:15 AM EDT [facility] Anion Gap 9 6 - 16 mmol/L 07/14/2025 10:15 AM EDT [facility] Total Calcium, Plasma 8.7(L) 8.9 - 10.2 mg/dL 07/14/2025 10:15 AM EDT [facility] eGFRcr 109.8 mL/min/1.7 3m*2 07/14/2025 10:15 AM EDT [facility] Comment:Reported eGFRcr in m L/min/1.73m2 is based the CKD-EPI 2020 equation that does not use a race coefficient. Blood Venous blood specimen / Unknown Venipuncture / Unknown 07/14/2025 9:36 AM EDT 07/14/2025 9:44 AM EDT Anne Franco MD LAB BLOOD ORDERABLES Sarah l Result Performing Organization Address City/[facility]/ZIP Co de Phone Number [facility] [address] [place] [address] * (ABNORMAL) Magnesium, Plasma (07/14/2025 9:36 AM EDT) Magnesium, Plasma 1.7(L) 1.9 - 2.4 mg/dL 07/14/2025 10:15 AM EDT [facility] Blood Venous blood specimen / Unknown Venipuncture / Unknown 07/14/2025 9:36 AM EDT 07/14/2025 9:44 AM EDT Anne Franco MD LAB BLOOD ORDERABLES Sarah l Result [facility] [address] [place] [address] * (ABNORMAL) Phosphorus, Plasma (07/14/2025 9:36 AM EDT) Phosphorus, Plasma 2.2(L) 2.5 - 4.5 mg/dL 07/14/2025 10:15 AM EDT [facility] Blood Venous blood specimen / Unknown Venipuncture / Unknown 07/14/2025 9:36 AM EDT 07/14/2025 9:44 AM EDT us Anne Franco MD LAB BLOOD ORDERABLES Sarah sabrina Result [facility] [address] [place] [address] * (ABNORMAL) CBC W/O Differential (07/14/2025 9:36 AM EDT) WBC Count 21.20(H) 3.70 - 10.30 10*3/uL LAB HEMATOLOGY METHOD 07/14/2025 9:52 AM EDT [facility] RBC Count 3.37(L) 3.90 - 5.20 10*6/uL LAB HEMATOLOGY METHOD 07/14/2025 9:52 AM EDT [facility] HGB 9.2(L) 11.2 - 15.7 g/dL LAB HEMATOLOGY METHOD 07/14/2025 9:52 AM EDT [facility] HCT 29.4(L) 34.0 - 45.0 % LAB HEMATOLOGY METHOD 07/14/2025 9:52 AM EDT [facility] Platelet Count 314 155 - 369 10*3/uL LAB HEMATOLOGY METHOD 07/14/2025 9:52 AM EDT [facility] MCV 87 79 - 98 fL LAB HEMATOLOGY METHOD 07/14/2025 9:52 AM EDT [facility] MCH 27.3 26.0 - 32.0 pg LAB HEMATOLOGY METHOD 07/14/2025 9:52 AM EDT [facility] MCHC 31.3 30.7 - 35.5 g/dL LAB HEMATOLOGY METHOD 07/14/2025 9:52 AM EDT [facility] RDW 17.2(H) 11.5 - 14.5 % LAB HEMATOLOGY METHOD 07/14/2025 9:52 AM EDT [facility] MPV 10.2 8.8 - 12.5 fL LAB HEMATOLOGY METHOD 07/14/2025 9:52 AM EDT [facility] nRBC 0.1(H) <=0.0 per 100 WBCs LAB HEMATOLOGY METHOD 07/14/2025 9:52 AM EDT [facility] Blood Venous blood specimen / Unknown Venipuncture / Unknown 07/14/2025 9:36 AM EDT 07/14/2025 9:44 AM EDT Anne Franco MD LAB BLOOD ORDERABLES Sarah l Result Performing Organization Address City/[facility]/ZIP Co de Phone Number [facility] [address] [place] [address] * (ABNORMAL) POCT glucose meter (07/14/2025 8:39 AM EDT) POCT Glucose 185(H) 74 - 99 mg/dL 07/14/2025 8:41 AM EDT [facility] Comment:Accuracy [...] Comment 07/14/2025 8:41 AM EDT [facility]ALTH[facility]ARE LAB Linker Up ID Laura Baez 025 8:41 AM EDT [facility] LAB Device ID [id number] 07/14/2025 8:41 AM EDT [facility] Specimen Type POC Capillary 07/14/2025 8:41 AM EDT [facility] Blood Capillary blood specimen / Unknown 07/14/2025 8:39 AM EDT 07/14/2025 8:41 AM EDT Anne Franco MD LAB POINT OF CARE TEST DOCKED DEVICE UNSOLICITED RESULTS Final Result Performing Organization Address City/[facility]/ZIP Co de Phone Number [facility] [address] [place] [address] * (ABNORMAL) POCT glucose meter (07/14/2025 6:18 AM EDT) Pathologist [facility] POCT Glucose 178(H) 74 - 99 mg/dL [...] 07/14/2025 6:20 AM EDT [facility] Linker Up ID Rita Alejandro 6:20 AM EDT [facility] Device ID [id number] 07/14/2025 6:20 AM EDT [facility] Specimen Type POC Capillary 07/14/2025 6:20 AM EDT [facility] Blood Capillary blood specimen / Unknown 07/14/2025 6:18 AM EDT 07/14/2025 6:20 AM EDT us Anne Franco MD LAB POINT OF CARE TEST DOCKED DEVICE UNSOLICITED RESULTS Final Result Performing Organization Address City/State/[facility] Co de Phone Number [facility] [address] [place] [address] * (ABNORMAL) POCT glucose meter (07/13/2025 9:18 PM EDT) [facility] POCT Glucose 196(H) 74 - 99 mg/dL [...] 07/13/2025 9:19 PM EDT [facility] Linker Up ID Yenny Tong 025 9:19 PM EDT [facility]ALTH[facility]ARE LAB Device ID [id number] 07/13/2025 9:19 PM EDT [facility] Specimen Type POC Capillary 07/13/2025 9:19 PM EDT [facility] Blood Capillary blood specimen / Unknown 07/13/2025 9:18 PM EDT 07/13/2025 9:19 PM EDT us Anne Franco MD LAB POINT OF CARE TEST DOCKED DEVICE UNSOLICITED RESULTS Final Result Performing Organization Address City/[facility] Co de Phone Number [facility] [address] [place] [address] * (ABNORMAL) POCT glucose meter (07/13/2025 6:01 PM EDT) [facility] POCT Glucose 128(H) 74 - 99 mg/dL [...] Comment 07/13/2025 6:02 PM EDT [facility] Linker Up ID Laura Baez 025 6:02 PM EDT [facility] Device ID [id number] 07/13/2025 6:02 PM EDT [facility] Specimen Type POC Capillary 07/13/2025 6:02 PM EDT [facility] Blood Capillary blood specimen / Unknown 07/13/2025 6:01 PM EDT 07/13/2025 6:02 PM EDT Anne Franco MD LAB POINT OF CARE TEST DOCKED DEVICE UNSOLICITED RESULTS Final Result Performing Organization Address [facility] Co de Phone Number [facility] [address] [place] [address] * (ABNORMAL) POCT glucose meter (07/13/2025 12:12 PM EDT) [facility] POCT Glucose 139(H) 74 - 99 mg/dL [...] 07/13/2025 12:14 PM EDT [facility] Linker Up ID Laura Baez 025 12:14 PM EDT [facility]ALTH[facility] LAB Device ID [id number] 07/13/2025 12:14 PM EDT [facility] Specimen Type POC Capillary 07/13/2025 12:14 PM EDT [facility] Blood Capillary blood specimen / Unknown 07/13/2025 12:12 PM EDT 07/13/2025 12:14 PM EDT Anne Franco MD LAB POINT OF CARE TEST DOCKED DEVICE UNSOLICITED RESULTS Final Result [facility] [address] [place] [address] * (ABNORMAL) Phosphorus (07/13/2025 10:21 AM EDT) Phosphorus, Plasma 2.2(L) 2.5 - 4.5 mg/dL 07/13/2025 11:23 AM EDT [facility] Blood Venous blood specimen / Unknown Venipuncture / Unknown 07/13/2025 10:21 AM EDT 07/13/2025 10:31 AM EDT Luanne Crawford MD LAB BLOOD ORDERABLES Final Result Performing Organization Address [facility]/ZIP Co de Phone Number [facility] [address] [place] [address] * (ABNORMAL) Magnesium, Plasma (07/13/2025 10:21 AM EDT) Magnesium, Plasma 1.7(L) 1.9 - 2.4 mg/dL 07/13/2025 11:23 AM EDT [facility] Blood Venous blood specimen / Unknown Venipuncture / Unknown 07/13/2025 10:21 AM EDT 07/13/2025 10:31 AM EDT us Luanne Crawford MD LAB BLOOD ORDERABLES Final Result Performing Organization Address City/[facility]/ZIP Co de Phone Number [facility] [address] [place] [address] * (ABNORMAL) Basic Metabolic Panel, Plasma (07/13/2025 10:21 AM EDT) Glucose, Plasma 135(H) 74 - 99 mg/dL 07/13/2025 11:23 AM EDT [facility] BUN, Plasma 22(H) 7 - 21 mg/dL 07/13/2025 11:23 AM EDT [facility] Creatinine, Plasma 0.62 0.60 - 1.10 mg/dL 07/13/2025 11:23 AM EDT [facility] BUN/Creatinine Ratio 35 07/13/2025 11:23 AM EDT [facility] Sodium, Plasma 138 136 - 145 mmol/L 07/13/2025 11:23 AM EDT [facility] Potassium, Plasma 3.7 3.6 - 4.9 mmol/L 07/13/2025 11:23 AM EDT [facility] Chloride, Plasma 95(L) 97 - 107 mmol/L 07/13/2025 11:23 AM EDT [facility] CO2, Plasma 30(H) 22 - 29 mmol/L 07/13/2025 11:23 AM EDT [facility] Anion Gap 13 6 - 16 mmol/L 07/13/2025 11:23 AM EDT [facility] Total Calcium, Plasma 9.0 8.9 - 10.2 mg/dL 07/13/2025 11:23 AM EDT [facility] eGFRcr 109.3 mL/min/1.7 3m*2 07/13/2025 11:23 AM EDT [facility] Comment:Reported eGFRcr in m L/min/1.73m2 is based the CKD-EPI 2020 equation that does not use a race coefficient. Blood Venous blood specimen / Unknown Venipuncture / Unknown 07/13/2025 10:21 AM EDT 07/13/2025 10:31 AM EDT us Luanne Crawford MD LAB BLOOD ORDERABLES Final Result [facility] [address] [place] [address] * (ABNORMAL) CBC W/O Differential (07/13/2025 10:21 AM EDT) WBC Count 19.56(H) 3.70 - 10.30 10*3/uL LAB HEMATOLOGY METHOD 07/13/2025 10:59 AM EDT [facility] RBC Count 3.67(L) 3.90 - 5.20 10*6/uL LAB HEMATOLOGY METHOD 07/13/2025 10:59 AM EDT [facility] HGB 10.2(L) 11.2 - 15.7 g/dL LAB HEMATOLOGY METHOD 07/13/2025 10:59 AM EDT [facility] HCT 32.3(L) 34.0 - 45.0 % LAB HEMATOLOGY METHOD 07/13/2025 10:59 AM EDT [facility] Platelet Count 296 155 - 369 10*3/uL LAB HEMATOLOGY METHOD 07/13/2025 10:59 AM EDT [facility] MCV 88 79 - 98 fL LAB HEMATOLOGY METHOD 07/13/2025 10:59 AM EDT [facility] MCH 27.8 26.0 - 32.0 pg LAB HEMATOLOGY METHOD 07/13/2025 10:59 AM EDT [facility] MCHC 31.6 30.7 - 35.5 g/dL LAB HEMATOLOGY METHOD 07/13/2025 10:59 AM EDT [facility] RDW 17.6(H) 11.5 - 14.5 % LAB HEMATOLOGY METHOD 07/13/2025 10:59 AM EDT [facility] MPV 10.3 8.8 - 12.5 fL LAB HEMATOLOGY METHOD 07/13/2025 10:59 AM EDT [facility] nRBC 0.0 <=0.0 per 100 WBCs LAB HEMATOLOGY METHOD 07/13/2025 10:59 AM EDT [facility] Blood Venous blood specimen / Unknown Venipuncture / Unknown 07/13/2025 10:21 AM EDT 07/13/2025 10:31 AM EDT us Luanne Crawford MD LAB BLOOD ORDERABLES Final Result [facility] [address] [place] [address] * (ABNORMAL) POCT glucose meter (07/13/2025 8:50 AM EDT) [facility] POCT Glucose 102(H) 74 - 99 mg/dL [...] Comment 07/13/2025 8:53 AM EDT [facility] LAB Linker Up ID Laura Baez 025 8:53 AM EDT [facility] Device ID [id number] 07/13/2025 8:53 AM EDT [facility] Specimen Type POC Capillary 07/13/2025 8:53 AM EDT [facility] Blood Capillary blood specimen / Unknown 07/13/2025 8:50 AM EDT 07/13/2025 8:53 AM EDT us Anne Franco MD LAB POINT OF CARE TEST DOCKED DEVICE UNSOLICITED RESULTS Final Result Performing Organization Address City/State/[facility] Co de Phone Number [facility] [address] [place] [address] * (ABNORMAL) POCT glucose meter (07/13/2025 6:11 AM EDT) [facility] POCT Glucose 111(H) 74 - 99 mg/dL [...] Comment 07/13/2025 6:13 AM EDT [facility] Linker Up ID Rita Alejandro 6:13 AM EDT [facility] Device ID [id number] 07/13/2025 6:13 AM EDT [facility] Specimen Type POC Capillary 07/13/2025 6:13 AM EDT [facility] Blood Capillary blood specimen / Unknown 07/13/2025 6:11 AM EDT 07/13/2025 6:13 AM EDT Anne Franco MD LAB POINT OF CARE TEST DOCKED DEVICE UNSOLICITED RESULTS Final Result [facility] [address] [place] [address] * (ABNORMAL) POCT glucose meter (07/12/2025 9:28 [...] Comment 07/12/2025 9:30 PM EDT [facility] LAB Linker Up ID Yenny Tong 025 9:30 PM EDT [facility] Device ID [id number] 07/12/2025 9:30 PM EDT [facility] Specimen Type POC Capillary 07/12/2025 9:30 PM EDT [facility] Blood Capillary blood specimen / Unknown 07/12/2025 9:28 PM EDT 07/12/2025 9:30 PM EDT Anne Franco MD LAB POINT OF CARE TEST DOCKED DEVICE UNSOLICITED RESULTS Final Result [facility] [address] [place] [address] * (ABNORMAL) POCT glucose meter (07/12/2025 6:04 [...] Comment 07/12/2025 6:06 PM EDT [facility] Linker Up ID Jeana Bear 07/12/2025 6:06 PM EDT [facility]ALTH[facility] Device ID [id number] 07/12/2025 6:06 PM EDT [facility] Specimen Type POC Capillary 07/12/2025 6:06 PM EDT [facility] Blood Capillary blood specimen / Unknown 07/12/2025 6:04 PM EDT 07/12/2025 6:06 PM EDT Anne Franco MD LAB POINT OF CARE TEST DOCKED DEVICE UNSOLICITED RESULTS Final Result Performing Organization Address City/State/[facility] Phone Number [facility] [address] [place] [address] * PERIPHERAL IV (SMART[employer] LINK) (07/12/2025 3:51 PM EDT) Narrative Halima Live RN - 07/12/2025 3:51 PM EDT Halmia Live RN 07/12/2025 3:52 PM Insert peripheral [...] glucose meter (07/12/2025 11:55 AM EDT) Pathologist [facility] POCT Glucose 119(H) 74 - 99 mg/dL [...] Comment 07/12/2025 11:56 AM EDT HEALTHCARE [facility] Linker Up ID Jeana Bear 07/12/2025 11:56 AM EDT [facility]ALTH[facility] Device ID [id number] 07/12/2025 11:56 AM EDT [facility] Specimen Type POC Capillary 07/12/2025 11:56 AM EDT [facility] Blood Capillary blood specimen / Unknown 07/12/2025 11:55 AM EDT 07/12/2025 11:56 AM EDT Dorcas Hennessy MD LAB POINT OF CARE TE ST DOCKED DEVICE UNSOLICITED RESULTS Final Result [facility] [address] [place] [address] * XR Chest 1 View (07/12/2025 11:11 [...] POCT glucose meter (07/12/2025 8:41 AM EDT) [facility] [place] POCT Glucose 128(H) 74 - 99 mg/dL [...] Comment 07/12/2025 8:42 AM EDT [facility]ALTHCARE LAB Linker Up ID Jeana Bear 07/12/2025 8:42 AM EDT HEALTHCARE LAB Device ID [id number] 07/12/2025 8:42 AM EDT [facility]ALTHCARE LAB Specimen Type POC Capillary 07/12/2025 8:42 AM EDT [facility] Blood Capillary blood specimen / Unknown 07/12/2025 8:41 AM EDT 07/12/2025 8:42 AM EDT us Dorcas Hennessy MD LAB POINT OF CARE TE ST DOCKED DEVICE UNSOLICITED RESULTS Final Result [facility] [address] [place] [address] * Phosphorus (07/12/2025 12:25 AM EDT) [facility] [place] Phosphorus, Plasma 2.9 2.5 - 4.5 mg/dL 07/12/2025 1:22 AM EDT [facility] Blood Venous blood specimen / Unknown Venipuncture / Unknown 07/12/2025 12:25 AM EDT 07/12/2025 12:52 AM EDT Luanne Crawford MD LAB BLOOD ORDERABLES Final Result Performing Organization Address [facility]/ZIP Co de Phone Number [facility] [address] [place] [address] * Magnesium, Plasma (07/12/2025 12:25 AM EDT) Magnesium, Plasma 2.0 1.9 - 2.4 mg/dL 07/12/2025 1:22 AM EDT [facility] Blood Venous blood specimen / Unknown Venipuncture / Unknown 07/12/2025 12:25 AM EDT 07/12/2025 12:52 AM EDT us Luanne Crawford MD LAB BLOOD ORDERABLES Final Result Performing Organization Address City/[facility]/ZIP Co de Phone Number [facility] [address] [place] [address] * (ABNORMAL) Basic Metabolic Panel, Plasma (07/12/2025 12:25 AM EDT) Glucose, Plasma 92 74 - 99 mg/dL 07/12/2025 1:22 AM EDT [facility] BUN, Plasma 18 7 - 21 mg/dL 07/12/2025 1:22 AM EDT [facility] Creatinine, Plasma 0.84 0.60 - 1.10 mg/dL 07/12/2025 1:22 AM EDT [facility] BUN/Creatinine Ratio 21 07/12/2025 1:22 AM EDT [facility] Sodium, Plasma 142 136 - 145 mmol/L 07/12/2025 1:22 AM EDT [facility] Potassium, Plasma 3.6 3.6 - 4.9 mmol/L 07/12/2025 1:22 AM EDT [facility] Chloride, Plasma 103 97 - 107 mmol/L 07/12/2025 1:22 AM EDT [facility] CO2, Plasma 31(H) 22 - 29 mmol/L 07/12/2025 1:22 AM EDT [facility] Anion Gap 8 6 - 16 mmol/L 07/12/2025 1:22 AM EDT [facility] Total Calcium, Plasma 8.8(L) 8.9 - 10.2 mg/dL 07/12/2025 1:22 AM EDT [facility] eGFRcr 85.3 mL/min/1.7 3m*2 07/12/2025 1:22 AM EDT [facility] Comment:Reported eGFRcr in m L/min/1.73m2 is based the CKD-EPI 2020 equation that does not use a race coefficient. Blood Venous blood specimen / Unknown Venipuncture / Unknown 07/12/2025 12:25 AM EDT 07/12/2025 12:52 AM EDT us Luanne Crawford MD LAB BLOOD ORDERABLES Final Result [facility] [address] [place] [address] * (ABNORMAL) CBC W/O Differential (07/12/2025 12:25 AM EDT) WBC Count 15.81(H) 3.70 - 10.30 10*3/uL LAB HEMATOLOGY METHOD 07/12/2025 1:05 AM EDT [facility] RBC Count 3.39(L) 3.90 - 5.20 10*6/uL LAB HEMATOLOGY METHOD 07/12/2025 1:05 AM EDT [facility] HGB 9.3(L) 11.2 - 15.7 g/dL LAB HEMATOLOGY METHOD 07/12/2025 1:05 AM EDT [facility] HCT 29.8(L) 34.0 - 45.0 % LAB HEMATOLOGY METHOD 07/12/2025 1:05 AM EDT [facility] Platelet Count 276 155 - 369 10*3/uL LAB HEMATOLOGY METHOD 07/12/2025 1:05 AM EDT [facility] MCV 88 79 - 98 fL LAB HEMATOLOGY METHOD 07/12/2025 1:05 AM EDT [facility] MCH 27.4 26.0 - 32.0 pg LAB HEMATOLOGY METHOD 07/12/2025 1:05 AM EDT [facility] MCHC 31.2 30.7 - 35.5 g/dL LAB HEMATOLOGY METHOD 07/12/2025 1:05 AM EDT [facility] RDW 18.0(H) 11.5 - 14.5 % LAB HEMATOLOGY METHOD 07/12/2025 1:05 AM EDT [facility] MPV 10.5 8.8 - 12.5 fL LAB HEMATOLOGY METHOD 07/12/2025 1:05 AM EDT [facility] nRBC 0.0 <=0.0 per 100 WBCs LAB HEMATOLOGY METHOD 07/12/2025 1:05 AM EDT [facility] Blood Venous blood specimen / Unknown Venipuncture / Unknown 07/12/2025 12:25 AM EDT 07/12/2025 12:55 AM EDT Luanne Crawford MD LAB BLOOD ORDERABLES Final Result Performing Organization Address City/[facility]/ZIP Co de Phone Number [facility] [address] [place] [address] * (ABNORMAL) POCT Glucose (if patient NPO, on TPN or continuous nutrition) (07/11/2025 8:45 PM EDT) Pathologist [facility] POCT Glucose 119(A) 74 - 99 mg/dL [facility] Test Strip Lot Number \[id number]\ HEALTHCARE LAB Test Strip Expiration 09/24/2026 [facility] Blood Venous blood specimen / Unknown 07/11/2025 8:45 PM EDT us Dorcas Hennessy MD POINT OF CARE TEST ENTER/EDIT OR DERABLES Final Result Performing Organization Address City/[facility]/ZIP Co de Phone Number [facility] [address] [place] [address] * (ABNORMAL) POCT Glucose - Before Meals and Bedtime (07/11/2025 8:43 PM EDT) POCT Glucose 119(A) 74 - 99 mg/dL [facility] Test Strip Lot Number [id number] [facility] Test Strip Expiration 09/24/2026 [facility] Blood Venous blood specimen / Unknown 07/11/2025 8:43 PM EDT us Dorcas Hennessy MD POINT OF CARE TEST ENTER/EDIT OR DERABLES Final Result [facility] [address] [place] [address] * (ABNORMAL) POCT glucose meter (07/11/2025 8:42 [...] Comment 07/11/2025 8:43 PM EDT HEALTHCARE LAB Linker Up ID Jf Cruz 07/11/2025 8:43 PM EDT [facility] Device ID [id number] 07/11/2025 8:43 PM EDT [facility]ALTH[facility]ARE LAB Specimen Type POC Capillary 07/11/2025 8:43 PM EDT [facility] Blood Capillary blood specimen / Unknown 07/11/2025 8:42 PM EDT 07/11/2025 8:43 PM EDT us Dorcas Hennessy MD LAB POINT OF CARE TE ST DOCKED DEVICE UNSOLICITED RESULTS Final Result [facility] [address] [place] [address] * (ABNORMAL) POCT glucose meter (07/11/2025 5:38 [...] Comment 07/11/2025 5:40 PM EDT [facility]ALTH[facility]ARE LAB Linker Up ID Ayana Amato 07/11/2025 5:40 PM EDT [facility]ALTH[facility]ARE LAB Device ID [id number] 07/11/2025 5:40 PM EDT [facility] LAB Specimen Type POC Capillary 07/11/2025 5:40 PM EDT [facility] Blood Capillary blood specimen / Unknown 07/11/2025 5:38 PM EDT 07/11/2025 5:40 PM EDT us Dorcas Hennessy MD LAB POINT OF CARE TE ST DOCKED DEVICE UNSOLICITED RESULTS Final Result Performing Organization Address City/State/[facility] Co de Phone Number [facility] LAB [address] [place] [address] * (ABNORMAL) POCT glucose meter (07/11/2025 3:36 PM EDT) [facility] Signature POCT Glucose 144(H) 74 - 99 mg/dL [...] Comment 07/11/2025 3:38 PM EDT HEALTHCARE LAB Linker Up ID Radha Frias 07/11/20 25 3:38 PM EDT [facility]ALTHCARE LAB Device ID [id number] 07/11/2025 3:38 PM EDT [facility]ALTH[facility]ARE LAB Specimen Type POC Venous 07/11/2025 3:38 PM EDT [facility] Blood Venous blood specimen / Unknown 07/11/2025 3:36 PM EDT 07/11/2025 3:38 PM EDT us Dorcas Hennessy MD LAB POINT OF CARE TE ST DOCKED DEVICE UNSOLICITED RESULTS Final Result [facility] [address] [place] [address] * (ABNORMAL) POCT glucose meter (07/11/2025 1:52 PM EDT) Pathologist [facility] POCT Glucose 140(H) 74 - 99 [...] Comment 07/11/2025 1:54 PM EDT HEALTHCARE LAB Linker Up ID Ayana Amato 07/11/2025 1:54 PM EDT [facility]ALTH[facility]ARE LAB Device ID [id number] 07/11/2025 1:54 PM EDT [facility] Specimen Type POC Capillary 07/11/2025 1:54 PM EDT [facility] Blood Capillary blood specimen / Unknown 07/11/2025 1:52 PM EDT 07/11/2025 1:54 PM EDT Dorcas Hennessy MD LAB POINT OF CARE TE ST DOCKED DEVICE UNSOLICITED RESULTS Final Result [facility] [address] [place] [address] * (ABNORMAL) POCT glucose meter (07/11/2025 12:12 PM EDT) [facility] [place] POCT Glucose 154(H) 74 - 99 mg/dL [...] 07/11/2025 12:13 PM EDT [facility] Linker Up ID Ayana Amato 07/11/2025 12:13 PM EDT [facility] Device ID [id number] 07/11/2025 12:13 PM EDT [facility] Specimen Type POC Capillary 07/11/2025 12:13 PM EDT [facility] Blood Capillary blood specimen / Unknown 07/11/2025 12:12 PM EDT 07/11/2025 12:13 PM EDT Luanne Crawford MD LAB POINT OF CARE TEST DOCKED DEVICE UNSOLICITED RESULTS Final Result Performing Organization Address [facility] Co de Phone Number [facility] [address] [place] [address] * (ABNORMAL) POCT glucose meter (07/11/2025 9:57 AM EDT) [facility] [place] POCT Glucose 135(H) 74 - 99 mg/dL [...] Comment 07/11/2025 9:59 AM EDT HEALTHCARE LAB Linker Up ID Ayana Amato 07/11/2025 9:59 AM EDT [facility]ALTHCARE LAB Device ID [id number] 07/11/2025 9:59 AM EDT [facility]ALTH[facility]ARE LAB Specimen Type POC Capillary 07/11/2025 9:59 AM EDT [facility] Blood Capillary blood specimen / Unknown 07/11/2025 9:57 AM EDT 07/11/2025 9:59 AM EDT us Luanne Crawford MD LAB POINT OF CARE TEST DOCKED DEVICE UNSOLICITED RESULTS Final Result Performing Organization Address City/[facility] Co de Phone Number [facility] [address] [place] [address] * IN CRITICAL CARE, E/M 30-74 MINUTES (07/11/2025 8:41 [...] OR today for possible wound VAC. Dorcas Hennsesy MD, PhD Acute Care Surgery, Trauma and Surgical Critical Care Dorcas Hennessy MD IN CLINIC/BEDSIDE ORDERABLES Fin al Result * (ABNORMAL) POCT glucose meter (07/11/2025 8:13 AM EDT) [facility] POCT Glucose 140(H) 74 - 99 mg/dL 07/11/2025 8:15 AM EDT [facility] Comment:Accuracy of a glucos e result [...] for testing. Comment 07/11/2025 8:15 AM EDT HEALTHCARE LAB Linker Up ID Ayana Amato 07/11/2025 8:15 AM EDT HEALTHCARE LAB Device ID [id number] 07/11/2025 8:15 AM EDT [facility]ARE LAB Specimen Type POC Capillary 07/11/2025 8:15 AM EDT [facility] Blood Capillary blood specimen / Unknown 07/11/2025 8:13 AM EDT 07/11/2025 8:15 AM EDT Luanne Crawford MD LAB POINT OF CARE TEST DOCKED DEVICE UNSOLICITED RESULTS Final Result Performing Organization Address City/[facility] Co de Phone Number [facility] [address] [place] [address] * (ABNORMAL) POCT glucose meter (07/11/2025 6:03 [...] Comment 07/11/2025 6:05 AM EDT [facility]ARE [facility] Linker Up ID Cheyanne Briceño 07/11/2025 6:05 AM EDT [facility]ALTH[facility]ARE LAB Device ID [id number] 07/11/2025 6:05 AM EDT [facility] LAB Specimen Type POC Capillary 07/11/2025 6:05 AM EDT [facility] Blood Capillary blood specimen / Unknown 07/11/2025 6:03 AM EDT 07/11/2025 6:05 AM EDT Luanne Crawford MD LAB POINT OF CARE TEST DOCKED DEVICE UNSOLICITED RESULTS Final Result Performing Organization Address City/[facility]/ZIP Co de Phone Number [facility] [address] [place] [address] * (ABNORMAL) POCT glucose meter (07/11/2025 4:04 AM EDT) [facility] POCT Glucose 107(H) 74 - 99 mg/dL [...] Comment 07/11/2025 4:06 AM EDT HEALTHCARE LAB Linker Up ID Cheyanne Briceño 07/11/2025 4:06 AM EDT HEALTHCARE LAB Device ID [id number] 07/11/2025 4:06 AM EDT [facility]ALTH[facility]ARE LAB Specimen Type POC Capillary 07/11/2025 4:06 AM EDT [facility] Blood Capillary blood specimen / Unknown 07/11/2025 4:04 AM EDT 07/11/2025 4:06 AM EDT us Luanne Crawford MD LAB POINT OF CARE TEST DOCKED DEVICE UNSOLICITED RESULTS Final Result Performing Organization Address City/State/[facility] Co de Phone Number [facility] [address] [place] [address] * (ABNORMAL) POCT glucose meter (07/11/2025 2:02 AM EDT) [facility] POCT Glucose 130(H) 74 - 99 mg/dL [...] Comment 07/11/2025 2:03 AM EDT [facility]ALTH[facility]ARE LAB Linker Up ID Cheyanne Briceño 07/11/2025 2:03 AM EDT HEALTHCARE LAB Device ID [id number] 07/11/2025 2:03 AM EDT [facility]ALTH[facility]ARE LAB Specimen Type POC Capillary 07/11/2025 2:03 AM EDT [facility] Blood Capillary blood specimen / Unknown 07/11/2025 2:02 AM EDT 07/11/2025 2:03 AM EDT us Luanne Crawford MD LAB POINT OF CARE TEST DOCKED DEVICE UNSOLICITED RESULTS Final Result Performing Organization Address City/[facility]/ZIP Co de Phone Number [facility] [address] [place] [address] * Phosphorus (07/11/2025 12:09 AM EDT) Phosphorus, Plasma 3.7 2.5 - 4.5 mg/dL 07/11/2025 12:54 AM EDT [facility] Blood Venous blood specimen / Unknown Venipuncture / Unknown 07/11/2025 12:09 AM EDT 07/11/2025 12:26 AM EDT us Luanne Crawford MD LAB BLOOD ORDERABLES Final Result Performing Organization Address City/[facility]/ZIP Co de Phone Number [facility] [address] [place] [address] * (ABNORMAL) Magnesium, Plasma (07/11/2025 12:09 AM EDT) Magnesium, Plasma 1.8(L) 1.9 - 2.4 mg/dL 07/11/2025 12:54 AM EDT [facility] Blood Venous blood specimen / Unknown Venipuncture / Unknown 07/11/2025 12:09 AM EDT 07/11/2025 12:26 AM EDT us Luanne Crawford MD LAB BLOOD ORDERABLES Final Result [facility] [address] [place] [address] * (ABNORMAL) Basic Metabolic Panel, Plasma (07/11/2025 12:09 AM EDT) Glucose, Plasma 163(H) 74 - 99 mg/dL 07/11/2025 12:54 AM EDT [facility] BUN, Plasma 20 7 - 21 mg/dL 07/11/2025 12:54 AM EDT [facility] Creatinine, Plasma 0.99 0.60 - 1.10 mg/dL 07/11/2025 12:54 AM EDT [facility] BUN/Creatinine Ratio 20 07/11/2025 12:54 AM EDT [facility] Sodium, Plasma 141 136 - 145 mmol/L 07/11/2025 12:54 AM EDT [facility] Potassium, Plasma 3.8 3.6 - 4.9 mmol/L 07/11/2025 12:54 AM EDT [facility] Chloride, Plasma 104 97 - 107 mmol/L 07/11/2025 12:54 AM EDT [facility] CO2, Plasma 27 22 - 29 mmol/L 07/11/2025 12:54 AM EDT [facility] Anion Gap 10 6 - 16 mmol/L 07/11/2025 12:54 AM EDT [facility] Total Calcium, Plasma 9.1 8.9 - 10.2 mg/dL 07/11/2025 12:54 AM EDT [facility] eGFRcr 70.0 mL/min/1.7 3m*2 07/11/2025 12:54 AM EDT [facility] Comment:Reported eGFRcr in m L/min/1.73m2 is based the CKD-EPI 2020 equation that does not use a race coefficient. Blood Venous blood specimen / Unknown Venipuncture / Unknown 07/11/2025 12:09 AM EDT 07/11/2025 12:26 AM EDT us Luanne Crawford MD LAB BLOOD ORDERABLES Final Result [facility] [address] [place] [address] * (ABNORMAL) CBC W/O Differential (07/11/2025 12:09 AM EDT) WBC Count 13.23(H) 3.70 - 10.30 10*3/uL LAB HEMATOLOGY METHOD 07/11/2025 12:36 AM EDT [facility] RBC Count 3.65(L) 3.90 - 5.20 10*6/uL LAB HEMATOLOGY METHOD 07/11/2025 12:36 AM EDT [facility] HGB 10.1(L) 11.2 - 15.7 g/dL LAB HEMATOLOGY METHOD 07/11/2025 12:36 AM EDT [facility] HCT 32.1(L) 34.0 - 45.0 % LAB HEMATOLOGY METHOD 07/11/2025 12:36 AM EDT [facility] Platelet Count 270 155 - 369 10*3/uL LAB HEMATOLOGY METHOD 07/11/2025 12:36 AM EDT [facility] MCV 88 79 - 98 fL LAB HEMATOLOGY METHOD 07/11/2025 12:36 AM EDT [facility] MCH 27.7 26.0 - 32.0 pg LAB HEMATOLOGY METHOD 07/11/2025 12:36 AM EDT [facility] MCHC 31.5 30.7 - 35.5 g/dL LAB HEMATOLOGY METHOD 07/11/2025 12:36 AM EDT [facility] RDW 17.9(H) 11.5 - 14.5 % LAB HEMATOLOGY METHOD 07/11/2025 12:36 AM EDT [facility] MPV 10.7 8.8 - 12.5 fL LAB HEMATOLOGY METHOD 07/11/2025 12:36 AM EDT [facility] nRBC 0.0 <=0.0 per 100 WBCs LAB HEMATOLOGY METHOD 07/11/2025 12:36 AM EDT [facility] Blood Venous blood specimen / Unknown Venipuncture / Unknown 07/11/2025 12:09 AM EDT 07/11/2025 12:29 AM EDT us Luanne Crawford MD LAB BLOOD ORDERABLES Final Result [facility] [address] [place] [address] * (ABNORMAL) POCT glucose meter (07/11/2025 12:04 [...] Comment 07/11/2025 12:06 AM EDT HEALTHCARE LAB Linker Up ID Cheyanne Briceño 07/11/2025 12:06 AM EDT HEALTHCARE LAB Device ID [id number] 07/11/2025 12:06 AM EDT [facility]ALTH[facility]ARE LAB Specimen Type POC Capillary 07/11/2025 12:06 AM EDT [facility] Blood Capillary blood specimen / Unknown 07/11/2025 12:04 AM EDT 07/11/2025 12:06 AM EDT us Luanne Crawford MD LAB POINT OF CARE TEST DOCKED DEVICE UNSOLICITED RESULTS Final Result Performing Organization Address City/State/[facility] Co de Phone Number [facility]CARE LAB [address] [place] [address] * (ABNORMAL) POCT glucose meter (07/10/2025 10:02 PM EDT) [facility] POCT Glucose 202(H) 74 - 99 mg/dL [...] Comment 07/10/2025 10:03 PM EDT HEALTHCARE LAB Linker Up ID Lidia Ugalde 07/10/2025 10:03 PM EDT HEALTHCARE LAB Device ID [id number] 07/10/2025 10:03 PM EDT [facility]ALTHCARE LAB Specimen Type POC Capillary 07/10/2025 10:03 PM EDT [facility] Blood Capillary blood specimen / Unknown 07/10/2025 10:02 PM EDT 07/10/2025 10:03 PM EDT us Luanne Crawford MD LAB POINT OF CARE TEST DOCKED DEVICE UNSOLICITED RESULTS Final Result [facility] [address] [place] [address] * (ABNORMAL) Blood gas panel, arterial (07/10/2025 8:23 PM EDT) pH, Arterial 7.30(L) 7.35 - 7.45 LAB HEMATOLOGY METHOD 07/10/2025 8:40 PM EDT [facility] pCO2, Arterial 57(H) 35 - 48 mmHg LAB HEMATOLOGY METHOD 07/10/2025 8:40 PM EDT [facility] pO2, Arterial 80(L) 83 - 108 mmHg LAB HEMATOLOGY METHOD 07/10/2025 8:40 PM EDT [facility] SO2, Measured, Arterial 95 94 - 98 % LAB HEMATOLOGY METHOD 07/10/2025 8:40 PM EDT [facility] Base Excess, Arterial 1.1 -2.0 - 3.0 mmol/L LAB HEMATOLOGY METHOD 07/10/2025 8:40 PM EDT [facility] Bicarbonate, Calculated, Arterial 28(H) 22 - 26 mmol/L LAB HEMATOLOGY METHOD 07/10/2025 8:40 PM EDT [facility] Hematocrit, Whole Blood 31.5(L) 34.0 - 45.0 % LAB HEMATOLOGY METHOD 07/10/2025 8:40 PM EDT [facility] Sodium, Whole Blood 138 136 - 145 mmol/L LAB HEMATOLOGY METHOD 07/10/2025 8:40 PM EDT [facility] Potassium, Whole Blood 3.9 3.6 - 4.9 mmol/L LAB HEMATOLOGY METHOD 07/10/2025 8:40 PM EDT [facility] Chloride, Whole Blood 103 97 - 107 mmol/L LAB HEMATOLOGY METHOD 07/10/2025 8:40 PM EDT [facility] Glucose, Whole Blood 206(H) 74 - 99 mg/dL LAB HEMATOLOGY METHOD 07/10/2025 8:40 PM EDT [facility] Ionized Calcium, Whole Blood 5.0 4.6 - 5.1 mg/dL LAB HEMATOLOGY METHOD 07/10/2025 8:40 PM EDT [facility] Lactate, Arterial, Whole Blood 1.7(H) 0.5 - 1.6 mmol/L LAB HEMATOLOGY METHOD 07/10/2025 8:40 PM EDT [facility] Blood Arterial blood specimen / Unknown Arterial Puncture / Unknown 07/10/2025 8:23 PM EDT 07/10/2025 8:35 PM EDT us Luanne Crawford MD LAB BLOOD ORDERABLES Final Result [facility] [address] [place] [address] * (ABNORMAL) POCT glucose meter (07/10/2025 8:03 [...] Comment 07/10/2025 8:05 PM EDT HEALTHCARE LAB Linker Up ID Cheyanne Briceño 07/10/2025 8:05 PM EDT HEALTHCARE LAB Device ID [id number] 07/10/2025 8:05 PM EDT [facility] Specimen Type POC Capillary 07/10/2025 8:05 PM EDT [facility] Blood Capillary blood specimen / Unknown 07/10/2025 8:03 PM EDT 07/10/2025 8:05 PM EDT us Luanne Crawford MD LAB POINT OF CARE TEST DOCKED DEVICE UNSOLICITED RESULTS Final Result [facility] [address] [place] [address] * (ABNORMAL) POCT glucose meter (07/10/2025 6:22 [...] Comment 07/10/2025 6:25 PM EDT [facility]ALTHCARE LAB Linker Up ID Zara Segovia 025 6:25 PM EDT [facility]ALTHCARE LAB Device ID [id number] 07/10/2025 6:25 PM EDT [facility] Specimen Type POC Capillary 07/10/2025 6:25 PM EDT [facility] Blood Capillary blood specimen / Unknown 07/10/2025 6:22 PM EDT 07/10/2025 6:25 PM EDT us Luanne Crawford MD LAB POINT OF CARE TEST DOCKED DEVICE UNSOLICITED RESULTS Final Result Performing Organization Address City/State/[facility] de Phone Number [facility]ARE [facility] [address] [place] [address] * (ABNORMAL) POCT glucose meter (07/10/2025 2:17 PM EDT) [facility] Signature POCT Glucose 145(H) 74 - [...] Comment 07/10/2025 2:19 PM EDT [facility]ALTHCARE LAB Linker Up ID Zara Segovia 025 2:19 PM EDT [facility]ALTH[facility]ARE LAB Device ID [id number] 07/10/2025 2:19 PM EDT [facility] Specimen Type POC Arterial 07/10/2025 2:19 PM EDT [facility] Blood Arterial blood specimen / Unknown 07/10/2025 2:17 PM EDT 07/10/2025 2:19 PM EDT us Luanne Crawford MD LAB POINT OF CARE TEST DOCKED DEVICE UNSOLICITED RESULTS Final Result [facility] [address] [place] [address] * XR Abdomen 1 View (07/10/2025 12:03 [...] of the abdomen. COMPARISON: None. FINDINGS: Limited [id number] abdominal radiograph for the purpose of locating tube position. The tip of the nasogastric tube is within the mid stomach. Procedure Note Bernabe Sen MD - 07/10/2025 CLINICAL INDICATION: feeding tube placement TECHNIQUE: Supine radiograph of the abdomen. COMPARISON: None. FINDINGS: Limited [id number] abdominal radiograph for the purpose of locatingtube [...] - 99 mg/dL 07/10/2025 12:02 PM EDT [facility] Comment:Accuracy of a glucos e result [...] Comment 07/10/2025 12:02 PM EDT HEALTHCARE LAB Linker Up ID Zara Segovia 025 12:02 PM EDT HEALTHCARE LAB Device ID [id number] 07/10/2025 12:02 PM EDT [facility]ARE LAB Specimen Type POC Arterial 07/10/2025 12:02 PM EDT [facility] Blood Arterial blood specimen / Unknown 07/10/2025 12:00 PM EDT 07/10/2025 12:02 PM EDT us Luanne Crawford MD LAB POINT OF CARE TEST DOCKED DEVICE UNSOLICITED RESULTS Final Result [facility] [address] [place] [address] * (ABNORMAL) POCT glucose meter (07/10/2025 9:50 AM EDT) [facility] POCT Glucose 134(H) 74 - 99 mg/dL [...] Comment 07/10/2025 9:52 AM EDT [facility]ALTHCARE LAB Linker Up ID Zara Segovia 025 9:52 AM EDT HEALTHCARE LAB Device ID [id number] 07/10/2025 9:52 AM EDT [facility]ARE LAB Specimen Type POC Arterial 07/10/2025 9:52 AM EDT [facility] Blood Arterial blood specimen / Unknown 07/10/2025 9:50 AM EDT 07/10/2025 9:52 AM EDT us Luanne Crawford MD LAB POINT OF CARE TEST DOCKED DEVICE UNSOLICITED RESULTS Final Result Performing Organization Address City/[facility] Co de Phone Number [facility]ARE [facility] [address] [place] [address] * ECG Adult (07/10/2025 8:42 AM EDT) EKG DIAGNOSIS CLASS Abnormal MUSE ECG Ventricular Rate 79 BPM MUSE ECG Atrial Rate 79 BPM MUSE ECG IN Interval 188 ms MUSE ECG QRSD Interval 90 ms MUSE ECG QT Interval 354 ms MUSE ECG QTC Interval 405 ms MUSE ECG P [place] 44 degrees MUSE ECG R [place] 17 degrees MUSE ECG T Wave [place] 27 degrees MUSE ECG Diagnosis Sinus rhythm with frequent premature ventricular complexes MUSE ECG Diagnosis Low voltage QRS MUSE ECG Diagnosis Cannot rule out Anterior infarct , age undetermined MUSE ECG Diagnosis MUSE ECG Diagnosis MUSE ECG Diagnosis Confirmed by Octavio Walsh ([id number]) on 07/10/2025 11:49:20 AM MUSE ECG 07/10/2025 8:42 AM EDT 07/10/2025 11:49 AM EDT us Luanne Crawford MD ECG ORDERABLES Final Resu lt Performing Organization Address [facility] Co de Phone Number MUSE ECG * IN CRITICAL CARE, E/M 30-74 MINUTES (07/10/2025 8:15 [...] glucose meter (07/10/2025 8:04 AM EDT) Pathologist [facility] POCT Glucose 163(H) 74 - 99 mg/dL [...] for testing. Comment 07/10/2025 9:22 AM EDT [facility] Linker Up ID Segovia, Symantha F 025 9:22 AM EDT [facility] Device ID [id number] 07/10/2025 9:22 AM EDT [facility] Specimen Type POC Arterial 07/10/2025 9:22 AM EDT [facility] Blood Arterial blood specimen / Unknown 07/10/2025 8:04 AM EDT 07/10/2025 9:22 AM EDT us Luanne Crawford MD LAB POINT OF CARE TEST DOCKED DEVICE UNSOLICITED RESULTS Final Result [facility] [address] [place] [address] * (ABNORMAL) POCT glucose meter (07/10/2025 6:04 [...] Comment 07/10/2025 6:05 AM EDT [facility]ALTH[facility] LAB Linker Up ID Cheyanne Briceño 07/10/2025 6:05 AM EDT HEALTHCARE LAB Device ID [id number] 07/10/2025 6:05 AM EDT HEALTHCARE LAB Specimen Type POC Arterial 07/10/2025 6:05 AM EDT [facility] LAB Blood Arterial blood specimen / Unknown 07/10/2025 6:04 AM EDT 07/10/2025 6:05 AM EDT Luanne Crawford MD LAB POINT OF CARE TEST DOCKED DEVICE UNSOLICITED RESULTS Final Result Performing Organization Address City/State/[facility] Co de Phone Number HEALTHCARE LAB [address] [place] [address] * (ABNORMAL) POCT glucose meter (07/10/2025 3:59 AM EDT) [facility] POCT Glucose 153(H) 74 - 99 mg/dL [...] Comment 07/10/2025 4:01 AM EDT HEALTHCARE LAB Linker Up ID Cheyanne Briceño 07/10/2025 4:01 AM EDT HEALTHCARE LAB Device ID [id number] 07/10/2025 4:01 AM EDT HEALTHCARE LAB Specimen Type POC Arterial 07/10/2025 4:01 AM EDT [facility] LAB Blood Arterial blood specimen / Unknown 07/10/2025 3:59 AM EDT 07/10/2025 4:01 AM EDT Luanne Crawford MD LAB POINT OF CARE TEST DOCKED DEVICE UNSOLICITED RESULTS Final Result Performing Organization Address [facility] Co de Phone Number HEALTHCARE LAB [address] [place] [address] * (ABNORMAL) POCT glucose meter (07/10/2025 3:01 [...] Comment 07/10/2025 3:03 AM EDT HEALTHCARE LAB Linker Up ID Cheyanne Briceño 07/10/2025 3:03 AM EDT HEALTHCARE LAB Device ID [id number] 07/10/2025 3:03 AM EDT [facility] LAB Specimen Type POC Arterial 07/10/2025 3:03 AM EDT [facility] Blood Arterial blood specimen / Unknown 07/10/2025 3:01 AM EDT 07/10/2025 3:03 AM EDT Luanne Crawford MD LAB POINT OF CARE TEST DOCKED DEVICE UNSOLICITED RESULTS Final Result Performing Organization Address City/[facility] Co de Phone Number HEALTHCARE LAB [address] [place] [address] * (ABNORMAL) POCT glucose meter (07/10/2025 2:03 [...] 07/10/2025 2:04 AM EDT [facility] Linker Up ID Cheyanne Briceño 07/10/2025 2:04 AM EDT [facility] Device ID [id number] 07/10/2025 2:04 AM EDT [facility] Specimen Type POC Arterial 07/10/2025 2:04 AM EDT [facility]ALTHCARE LAB Blood Arterial blood specimen / Unknown 07/10/2025 2:03 AM EDT 07/10/2025 2:04 AM EDT us Luanne Crawford MD LAB POINT OF CARE TEST DOCKED DEVICE UNSOLICITED RESULTS Final Result Performing Organization Address [facility] Co de Phone Number [facility] [address] [place] [address] * (ABNORMAL) POCT glucose meter (07/10/2025 12:59 AM EDT) [facility] POCT Glucose 158(H) 74 - 99 mg/dL [...] Comment 07/10/2025 1:00 AM EDT HEALTHCARE LAB Linker Up ID Cheyanne Briceño 07/10/2025 1:00 AM EDT HEALTHCARE LAB Device ID [id number] 07/10/2025 1:00 AM EDT HEALTHCARE LAB Specimen Type POC Arterial 07/10/2025 1:00 AM EDT [facility] LAB Blood Arterial blood specimen / Unknown 07/10/2025 12:59 AM EDT 07/10/2025 1:00 AM EDT us Luanne Crawford MD LAB POINT OF CARE TEST DOCKED DEVICE UNSOLICITED RESULTS Final Result Performing Organization Address City/[facility]/ZIP Co de Phone Number [facility] [address] [place] [address] * Phosphorus (07/10/2025 12:03 AM EDT) Phosphorus, Plasma 4.2 2.5 - 4.5 mg/dL 07/10/2025 12:40 AM EDT [facility] Blood Arterial blood specimen / Unknown Venipuncture / Unknown 07/10/2025 12:03 AM EDT 07/10/2025 12:10 AM EDT us Luanne Crawford MD LAB BLOOD ORDERABLES Final Result Performing Organization Address City/[facility]/ZIP Co de Phone Number [facility] [address] [place] [address] * Magnesium, Plasma (07/10/2025 12:03 AM EDT) Magnesium, Plasma 2.1 1.9 - 2.4 mg/dL 07/10/2025 12:40 AM EDT [facility] Blood Arterial blood specimen / Unknown Venipuncture / Unknown 07/10/2025 12:03 AM EDT 07/10/2025 12:10 AM EDT us Luanne Crawford MD LAB BLOOD ORDERABLES Final Result Performing Organization Address City/[facility]/ZIP Co de Phone Number [facility] [address] [place] [address] * (ABNORMAL) Basic Metabolic Panel, Plasma (07/10/2025 12:03 AM EDT) Glucose, Plasma 155(H) 74 - 99 mg/dL 07/10/2025 12:40 AM EDT [facility] BUN, Plasma 22(H) 7 - 21 mg/dL 07/10/2025 12:40 AM EDT [facility] Creatinine, Plasma 1.25(H) 0.60 - 1.10 mg/dL 07/10/2025 12:40 AM EDT [facility] BUN/Creatinine Ratio 18 07/10/2025 12:40 AM EDT [facility] Sodium, Plasma 134(L) 136 - 145 mmol/L 07/10/2025 12:40 AM EDT [facility] Potassium, Plasma 3.7 3.6 - 4.9 mmol/L 07/10/2025 12:40 AM EDT [facility] Chloride, Plasma 101 97 - 107 mmol/L 07/10/2025 12:40 AM EDT [facility] CO2, Plasma 25 22 - 29 mmol/L 07/10/2025 12:40 AM EDT [facility] Anion Gap 8 6 - 16 mmol/L 07/10/2025 12:40 AM EDT [facility] Total Calcium, Plasma 9.3 8.9 - 10.2 mg/dL 07/10/2025 12:40 AM EDT [facility] eGFRcr 52.9 mL/min/1.7 3m*2 07/10/2025 12:40 AM EDT [facility] Comment:Reported eGFRcr in m L/min/1.73m2 is based the CKD-EPI 2020 equation that does not use a race coefficient. Blood Arterial blood specimen / Unknown Venipuncture / Unknown 07/10/2025 12:03 AM EDT 07/10/2025 12:10 AM EDT us Luanne Crawford MD LAB BLOOD ORDERABLES Final Result [facility] [address] [place] [address] * (ABNORMAL) CBC W/O Differential (07/10/2025 12:03 AM EDT) WBC Count 17.64(H) 3.70 - 10.30 10*3/uL LAB HEMATOLOGY METHOD 07/10/2025 12:22 AM EDT [facility] RBC Count 3.83(L) 3.90 - 5.20 10*6/uL LAB HEMATOLOGY METHOD 07/10/2025 12:22 AM EDT [facility] HGB 10.6(L) 11.2 - 15.7 g/dL LAB HEMATOLOGY METHOD 07/10/2025 12:22 AM EDT [facility] HCT 33.3(L) 34.0 - 45.0 % LAB HEMATOLOGY METHOD 07/10/2025 12:22 AM EDT [facility] Platelet Count 309 155 - 369 10*3/uL LAB HEMATOLOGY METHOD 07/10/2025 12:22 AM EDT [facility] MCV 87 79 - 98 fL LAB HEMATOLOGY METHOD 07/10/2025 12:22 AM EDT [facility] MCH 27.7 26.0 - 32.0 pg LAB HEMATOLOGY METHOD 07/10/2025 12:22 AM EDT [facility] MCHC 31.8 30.7 - 35.5 g/dL LAB HEMATOLOGY METHOD 07/10/2025 12:22 AM EDT [facility] RDW 17.9(H) 11.5 - 14.5 % LAB HEMATOLOGY METHOD 07/10/2025 12:22 AM EDT [facility] MPV 10.3 8.8 - 12.5 fL LAB HEMATOLOGY METHOD 07/10/2025 12:22 AM EDT [facility] nRBC 0.0 <=0.0 per 100 WBCs LAB HEMATOLOGY METHOD 07/10/2025 12:22 AM EDT [facility] Blood Arterial blood specimen / Unknown Venipuncture / Unknown 07/10/2025 12:03 AM EDT 07/10/2025 12:11 AM EDT us Luanne Crawford MD LAB BLOOD ORDERABLES Final Result [facility] [address] [place] [address] * (ABNORMAL) POCT glucose meter (07/10/2025 12:02 [...] for testing. Comment 07/10/2025 12:04 AM EDT [facility] Linker Up ID Cheyanne Briceño 07/10/2025 12:04 AM EDT [facility] Device ID [id number] 07/10/2025 12:04 AM EDT [facility]ALTHCARE LAB Specimen Type POC Arterial 07/10/2025 12:04 AM EDT [facility] LAB Blood Arterial blood specimen / Unknown 07/10/2025 12:02 AM EDT 07/10/2025 12:04 AM EDT Luanne Crawford MD LAB POINT OF CARE TEST DOCKED DEVICE UNSOLICITED RESULTS Final Result Performing Organization Address City/[facility] Co de Phone Number HEALTHCARE LAB [address] [place] [address] * (ABNORMAL) POCT glucose meter (07/09/2025 10:01 [...] Comment 07/09/2025 10:04 PM EDT [facility]ALTHCARE LAB Linker Up ID Cheyanne Briceño 07/09/2025 10:04 PM EDT HEALTHCARE LAB Device ID [id number] 07/09/2025 10:04 PM EDT HEALTHCARE LAB Specimen Type POC Arterial 07/09/2025 10:04 PM EDT [facility]ALTH[facility] LAB Blood Arterial blood specimen / Unknown 07/09/2025 10:01 PM EDT 07/09/2025 10:04 PM EDT us Luanne Crawford MD LAB POINT OF CARE TEST DOCKED DEVICE UNSOLICITED RESULTS Final Result Performing Organization Address City/[facility] Co de Phone Number [facility] [address] [place] [address] * (ABNORMAL) POCT glucose meter (07/09/2025 8:09 [...] 07/09/2025 8:11 PM EDT [facility] Linker Up ID Cheyanne Briceño 07/09/2025 8:11 PM EDT HEALTHCARE LAB Device ID [id number] 07/09/2025 8:11 PM EDT [facility]ALTH[facility]ARE LAB Specimen Type POC Capillary 07/09/2025 8:11 PM EDT [facility] LAB Blood Capillary blood specimen / Unknown 07/09/2025 8:09 PM EDT 07/09/2025 8:11 PM EDT us Luanne Crawford MD LAB POINT OF CARE TEST DOCKED DEVICE UNSOLICITED RESULTS Final Result [facility] [address] [place] [address] * (ABNORMAL) POCT glucose meter (07/09/2025 6:22 PM EDT) [facility] POCT Glucose 151(H) 74 - 99 mg/dL [...] 07/09/2025 6:24 PM EDT [facility] Linker Up ID Jeana Bear 07/09/2025 6:24 PM EDT [facility] Device ID [id number] 07/09/2025 6:24 PM EDT [facility] Specimen Type POC Capillary 07/09/2025 6:24 PM EDT [facility]ALTH[facility] LAB Blood Capillary blood specimen / Unknown 07/09/2025 6:22 PM EDT 07/09/2025 6:24 PM EDT us Luanne Crawford MD LAB POINT OF CARE TEST DOCKED DEVICE UNSOLICITED RESULTS Final Result Performing Organization Address [facility] Co de Phone Number [facility] [address] [place] [address] * (ABNORMAL) POCT glucose meter (07/09/2025 4:06 PM EDT) [facility]ologist [facility] POCT Glucose 144(H) 74 - 99 [...] for testing. Comment 07/09/2025 4:07 PM EDT [facility] Linker Up ID Jeana Bear 07/09/2025 4:07 PM EDT [facility] Device ID [id number] 07/09/2025 4:07 PM EDT [facility] Specimen Type POC Capillary 07/09/2025 4:07 PM EDT [facility] Blood Capillary blood specimen / Unknown 07/09/2025 4:06 PM EDT 07/09/2025 4:07 PM EDT us Luanne Crawford MD LAB POINT OF CARE TEST DOCKED DEVICE UNSOLICITED RESULTS Final Result Performing Organization Address City/[facility] Co de Phone Number [facility] [address] [place] [address] * (ABNORMAL) Blood gas, arterial (07/09/2025 3:16 PM EDT) pH, Arterial 7.31(L) 7.35 - 7.45 LAB HEMATOLOGY METHOD 07/09/2025 3:40 PM EDT [facility] pCO2, Arterial 53(H) 35 - 48 mmHg LAB HEMATOLOGY METHOD 07/09/2025 3:40 PM EDT [facility] pO2, Arterial 153(H) 83 - 108 mmHg LAB HEMATOLOGY METHOD 07/09/2025 3:40 PM EDT [facility] SO2, Measured, Arterial 100(H) 94 - 98 % LAB HEMATOLOGY METHOD 07/09/2025 3:40 PM EDT [facility] Base Excess, Arterial -0.4 -2.0 - 3.0 mmol/L LAB HEMATOLOGY METHOD 07/09/2025 3:40 PM EDT [facility] Bicarbonate, Calculated, Arterial 26 22 - 26 mmol/L LAB HEMATOLOGY METHOD 07/09/2025 3:40 PM EDT [facility] Hematocrit, Whole Blood 30.6(L) 34.0 - 45.0 % LAB HEMATOLOGY METHOD 07/09/2025 3:40 PM EDT [facility] Sodium, Whole Blood 141 136 - 145 mmol/L LAB HEMATOLOGY METHOD 07/09/2025 3:40 PM EDT [facility] Potassium, Whole Blood 3.4(L) 3.6 - 4.9 mmol/L LAB HEMATOLOGY METHOD 07/09/2025 3:40 PM EDT [facility] Chloride, Whole Blood 107 97 - 107 mmol/L LAB HEMATOLOGY METHOD 07/09/2025 3:40 PM EDT [facility] Glucose, Whole Blood 141(H) 74 - 99 mg/dL LAB HEMATOLOGY METHOD 07/09/2025 3:40 PM EDT [facility] Ionized Calcium, Whole Blood 4.9 4.6 - 5.1 mg/dL LAB HEMATOLOGY METHOD 07/09/2025 3:40 PM EDT [facility] Lactate, Arterial, Whole Blood 0.9 0.5 - 1.6 mmol/L LAB HEMATOLOGY METHOD 07/09/2025 3:40 PM EDT [facility] Blood Arterial blood specimen / Unknown Arterial Line / Unknown 07/09/2025 3:16 PM EDT 07/09/2025 3:38 PM EDT us Luanne Crawford MD LAB BLOOD ORDERABLES Final Result [facility] [address] [place] [address] * (ABNORMAL) POCT glucose meter (07/09/2025 3:01 [...] 07/09/2025 3:03 PM EDT [facility] Linker Up ID Jeana Bear 07/09/2025 3:03 PM EDT HEALTHCARE LAB Device ID [id number] 07/09/2025 3:03 PM EDT HEALTHCARE LAB Specimen Type POC Capillary 07/09/2025 3:03 PM EDT [facility] LAB Blood Capillary blood specimen / Unknown 07/09/2025 3:01 PM EDT 07/09/2025 3:03 PM EDT Luanne Crawford MD LAB POINT OF CARE TEST DOCKED DEVICE UNSOLICITED RESULTS Final Result [facility] [address] [place] [address] * (ABNORMAL) POCT glucose meter (07/09/2025 1:57 PM EDT) [facility] POCT Glucose 115(H) 74 - 99 mg/dL [...] 07/09/2025 1:59 PM EDT [facility] Linker Up ID Jeana Bear 07/09/2025 1:59 PM EDT [facility] Device ID [id number] 07/09/2025 1:59 PM EDT [facility] Specimen Type POC Capillary 07/09/2025 1:59 PM EDT [facility]ALTH[facility] LAB Blood Capillary blood specimen / Unknown 07/09/2025 1:57 PM EDT 07/09/2025 1:59 PM EDT us Luanne Crawford MD LAB POINT OF CARE TEST DOCKED DEVICE UNSOLICITED RESULTS Final Result Performing Organization Address City/[facility]/ZIP Co de Phone Number [facility] [address] [place] [address] * Phosphorus (07/09/2025 1:21 PM EDT) Phosphorus, Plasma 4.2 2.5 - 4.5 mg/dL 07/09/2025 2:49 PM EDT [facility] Blood Arterial blood specimen / Unknown Arterial Line / Unknown 07/09/2025 1:21 PM EDT 07/09/2025 2:01 PM EDT Luanne Crawford MD LAB BLOOD ORDERABLES Final Result Performing Organization Address [facility]/ZIP Co de Phone Number [facility] [address] [place] [address] * Magnesium (07/09/2025 1:21 PM EDT) Magnesium, Plasma 2.3 1.9 - 2.4 mg/dL 07/09/2025 2:49 PM EDT [facility] Blood Arterial blood specimen / Unknown Arterial Line / Unknown 07/09/2025 1:21 PM EDT 07/09/2025 2:01 PM EDT us Luanne Crawford MD LAB BLOOD ORDERABLES Final Result Performing Organization Address City/[facility]/ZIP Co de Phone Number [facility] [address] [place] [address] * (ABNORMAL) Basic metabolic panel (07/09/2025 1:21 PM EDT) Glucose, Plasma 100(H) 74 - 99 mg/dL 07/09/2025 2:49 PM EDT [facility] BUN, Plasma 26(H) 7 - 21 mg/dL 07/09/2025 2:49 PM EDT [facility] Creatinine, Plasma 1.42(H) 0.60 - 1.10 mg/dL 07/09/2025 2:49 PM EDT [facility] BUN/Creatinine Ratio 18 07/09/2025 2:49 PM EDT [facility] Sodium, Plasma 140 136 - 145 mmol/L 07/09/2025 2:49 PM EDT [facility] Potassium, Plasma 3.7 3.6 - 4.9 mmol/L 07/09/2025 2:49 PM EDT [facility] Chloride, Plasma 104 97 - 107 mmol/L 07/09/2025 2:49 PM EDT [facility] CO2, Plasma 24 22 - 29 mmol/L 07/09/2025 2:49 PM EDT [facility] Anion Gap 12 6 - 16 mmol/L 07/09/2025 2:49 PM EDT [facility] Total Calcium, Plasma 9.1 8.9 - 10.2 mg/dL 07/09/2025 2:49 PM EDT [facility] eGFRcr 45.4 mL/min/1.7 3m*2 07/09/2025 2:49 PM EDT [facility] Comment:Reported eGFRcr in m L/min/1.73m2 is based the CKD-EPI 2020 equation that does not use a race coefficient. Blood Arterial blood specimen / Unknown Arterial Line / Unknown 07/09/2025 1:21 PM EDT 07/09/2025 2:01 PM EDT us Luanne Crawford MD LAB BLOOD ORDERABLES Final Result [facility] [address] [place] [address] * (ABNORMAL) POCT glucose meter (07/09/2025 1:20 PM EDT) [facility] POCT Glucose 103(H) 74 - 99 mg/dL 07/09/2025 1:22 PM EDT [facility] Comment:Accuracy of a glucos [...] 07/09/2025 1:22 PM EDT [facility] Linker Up ID Jeana Bear 07/09/2025 1:22 PM EDT HEALTHCARE LAB Device ID [id number] 07/09/2025 1:22 PM EDT HEALTHCARE LAB Specimen Type POC Arterial 07/09/2025 1:22 PM EDT [facility] Blood Arterial blood specimen / Unknown 07/09/2025 1:20 PM EDT 07/09/2025 1:22 PM EDT Luanne Crawford MD LAB POINT OF CARE TEST DOCKED DEVICE UNSOLICITED RESULTS Final Result Performing Organization Address [facility] Co de Phone Number [facility]ALTHCARE LAB [address] [place] [address] * (ABNORMAL) POCT glucose meter (07/09/2025 12:44 PM EDT) [facility] POCT Glucose 110(H) 74 - 99 mg/dL [...] Comment 07/09/2025 12:45 PM EDT [facility]ALTHCARE LAB Linker Up ID Jeana Bear 07/09/2025 12:45 PM EDT [facility]ALTH[facility]ARE LAB Device ID [id number] 07/09/2025 12:45 PM EDT [facility] LAB Specimen Type POC Capillary 07/09/2025 12:45 PM EDT [facility] Blood Capillary blood specimen / Unknown 07/09/2025 12:44 PM EDT 07/09/2025 12:45 PM EDT us Luanne Crawford MD LAB POINT OF CARE TEST DOCKED DEVICE UNSOLICITED RESULTS Final Result Performing Organization Address City/[facility] Co de Phone Number [facility] [address] [place] [address] * (ABNORMAL) POCT glucose meter (07/09/2025 12:19 PM EDT) Pathologist [facility] POCT Glucose 62(L) 74 - 99 mg/dL [...] Comment 07/09/2025 12:21 PM EDT [facility]ALTHCARE LAB Linker Up ID Jeana Bear 07/09/2025 12:21 PM EDT HEALTHCARE LAB Device ID [id number] 07/09/2025 12:21 PM EDT [facility]ALTH[facility]ARE LAB Specimen Type POC Capillary 07/09/2025 12:21 PM EDT [facility] Blood Capillary blood specimen / Unknown 07/09/2025 12:19 PM EDT 07/09/2025 12:21 PM EDT us Luanne Crawford MD LAB POINT OF CARE TEST DOCKED DEVICE UNSOLICITED RESULTS Final Result Performing Organization Address City/[facility]/ZIP Co de Phone Number [facility] [address] [place] [address] * Blood Culture (Aerobic/Anaerobet Set) (07/09/2025 10:35 AM EDT) [facility] Culture No growth at day 5 KAROLINA 07/14/2025 12:02 PM EDT [facility] Blood Structure of antecubital vein / Unknown Venipuncture / Unknown 07/09/2025 10:35 AM EDT 07/09/2025 10:50 AM EDT us My Charles MD LAB MICROBIOLOGY - GENE RAL ORDERABLES Final Result Performing Organization Address City/[facility]/ZIP Co de Phone Number [facility] [address] [place] [address] * Blood Culture (Aerobic/Anaerobet Set) (07/09/2025 10:35 AM EDT) Culture No growth at day 5 KAROLINA 07/14/2025 12:02 PM EDT [facility] Blood Structure of antecubital vein / Unknown Venipuncture / Unknown 07/09/2025 10:35 AM EDT 07/09/2025 10:50 AM EDT us My Charles MD LAB MICROBIOLOGY - GENE RAL ORDERABLES Final Result [facility] [address] [place] [address] * (ABNORMAL) POCT glucose meter (07/09/2025 10:04 AM EDT) [facility] POCT Glucose 114(H) 74 - 99 mg/dL [...] Comment 07/09/2025 10:05 AM EDT [facility]ALTHCARE LAB Linker Up ID Jeana Bear 07/09/2025 10:05 AM EDT HEALTHCARE LAB Device ID [id number] 07/09/2025 10:05 AM EDT [facility]ALTHCARE LAB Specimen Type POC Capillary 07/09/2025 10:05 AM EDT [facility] Blood Capillary blood specimen / Unknown 07/09/2025 10:04 AM EDT 07/09/2025 10:05 AM EDT us Luanne Crawford MD LAB POINT OF CARE TEST DOCKED DEVICE UNSOLICITED RESULTS Final Result Performing Organization Address City/[facility]/ZIP Co de Phone Number [facility] [address] [place] [address] * Multi Drug Resistance Test (07/09/2025 9:46 AM EDT) Culture No growth at day 1 07/10/2025 11:58 AM EDT [facility] Swab (Nares and Leann Rectal) Non-blood Collection / Unknown 07/09/2025 9:46 AM EDT 07/09/2025 10:09 AM EDT Narrative [facility] - 07/10/2025 11:58 AM EDT This test was developed and its performance characteristics determined by the [facility]. Although the media is FDA-approved, it is not FDA-approved for all specimen types submitted. The FDA has determined that such clearance or approval is not necessary. This test is used for surveillance purposes. It should not be regarded as investigational or for research. The [facility] is certified under the Clinical Laboratory Improvement Amendments of 1988 (CLIA-88) as qualified to perform high complexity clinical laboratory testing. us Luanne Crawford MD LAB MICROBIOLOGY - GENERAL ORDERABLES Final Result [facility] [address] [place] [address] * (ABNORMAL) Blood gas, arterial (07/09/2025 8:47 AM EDT) pH, Arterial 7.30(L) 7.35 - 7.45 LAB HEMATOLOGY METHOD 07/09/2025 8:55 AM EDT [facility] pCO2, Arterial 53(H) 35 - 48 mmHg LAB HEMATOLOGY METHOD 07/09/2025 8:55 AM EDT [facility] pO2, Arterial 173(H) 83 - 108 mmHg LAB HEMATOLOGY METHOD 07/09/2025 8:55 AM EDT [facility] SO2, Measured, Arterial 98 94 - 98 % LAB HEMATOLOGY METHOD 07/09/2025 8:55 AM EDT [facility] Base Excess, Arterial -0.8 -2.0 - 3.0 mmol/L LAB HEMATOLOGY METHOD 07/09/2025 8:55 AM EDT [facility] Bicarbonate, Calculated, Arterial 26 22 - 26 mmol/L LAB HEMATOLOGY METHOD 07/09/2025 8:55 AM EDT [facility] Hematocrit, Whole Blood 27.3(L) 34.0 - 45.0 % LAB HEMATOLOGY METHOD 07/09/2025 8:55 AM EDT [facility] Sodium, Whole Blood 140 136 - 145 mmol/L LAB HEMATOLOGY METHOD 07/09/2025 8:55 AM EDT [facility] Potassium, Whole Blood 2.9(L) 3.6 - 4.9 mmol/L LAB HEMATOLOGY METHOD 07/09/2025 8:55 AM EDT [facility] Chloride, Whole Blood 106 97 - 107 mmol/L LAB HEMATOLOGY METHOD 07/09/2025 8:55 AM EDT [facility] Glucose, Whole Blood 155(H) 74 - 99 mg/dL LAB HEMATOLOGY METHOD 07/09/2025 8:55 AM EDT [facility] Ionized Calcium, Whole Blood 5.0 4.6 - 5.1 mg/dL LAB HEMATOLOGY METHOD 07/09/2025 8:55 AM EDT [facility] Lactate, Arterial, Whole Blood 1.4 0.5 - 1.6 mmol/L LAB HEMATOLOGY METHOD 07/09/2025 8:55 AM EDT [facility] Blood Arterial blood specimen / Unknown Arterial Line / Unknown 07/09/2025 8:47 AM EDT 07/09/2025 8:54 AM EDT us Dorcas Hennessy MD LAB BLOOD ORDERABLES Final Resul t [facility] [address] [place] [address] * (ABNORMAL) POCT glucose meter (07/09/2025 8:01 [...] Comment 07/09/2025 8:03 AM EDT HEALTHCARE LAB Linker Up ID Jeana Bear 07/09/2025 8:03 AM EDT [facility] Device ID [id number] 07/09/2025 8:03 AM EDT HEALTHCARE LAB Specimen Type POC Capillary 07/09/2025 8:03 AM EDT [facility] Blood Capillary blood specimen / Unknown 07/09/2025 8:01 AM EDT 07/09/2025 8:03 AM EDT us Luanne Crawford MD LAB POINT OF CARE TEST DOCKED DEVICE UNSOLICITED RESULTS Final Result [facility] [address] [place] [address] * IN CRITICAL CARE, E/M 30-74 MINUTES (07/09/2025 7:15 [...] Comment 07/09/2025 6:20 AM EDT HEALTHCARE LAB Linker Up ID Cheyanne Briceño 07/09/2025 6:20 AM EDT HEALTHCARE LAB Device ID [id number] 07/09/2025 6:20 AM EDT [facility]ALTHCARE LAB Specimen Type POC Arterial 07/09/2025 6:20 AM EDT [facility] Blood Arterial blood specimen / Unknown 07/09/2025 6:05 AM EDT 07/09/2025 6:20 AM EDT us Luanne Crawford MD LAB POINT OF CARE TEST DOCKED DEVICE UNSOLICITED RESULTS Final Result Performing Organization Address City/[facility]/ZIP Co de Phone Number [facility] [address] [place] [address] * (ABNORMAL) Hemoglobin A1c (07/09/2025 4:57 AM EDT) Hemoglobin A1c 7.5(H) <5.7 % 07/09/2025 12:09 PM EDT [facility] Blood Arterial blood specimen / Unknown Venipuncture / Unknown 07/09/2025 4:57 AM EDT 07/09/2025 5:07 AM EDT Narrative [facility] - 07/09/2025 12:09 PM EDT HA1C Interpretive Data: Diagnosis of Diabetes: Diabetic > or = 6.5% Pre-diabetic 5.7 to 6.4% Non-diabetic < or = 5.6% Glycemic Targets for Type I and Type II Diabetics: Non- Adults <7.0% Adults <6.0% Children and Adolescents <7.5% Source: [place] [employer]. Standards of medical care in diabetes,2017. Diabetes Care.2017:40 (suppl 1):S1-S135. [place] Dorcas Hennessy MD LAB BLOOD ORDERABLES Final Resul t Performing Organization Address City/[facility]/ZIP Co de Phone Number [facility] [address] [place] [address] * Phosphorus (07/09/2025 4:57 AM EDT) Phosphorus, Plasma 4.1 2.5 - 4.5 mg/dL 07/09/2025 5:35 AM EDT [facility] Blood Arterial blood specimen / Unknown Venipuncture / Unknown 07/09/2025 4:57 AM EDT 07/09/2025 5:06 AM EDT Luanne Crawford MD LAB BLOOD ORDERABLES Final Result Performing Organization Address City/[facility]/ZIP Co de Phone Number [facility] [address] [place] [address] * Magnesium, Plasma (07/09/2025 4:57 AM EDT) Magnesium, Plasma 2.2 1.9 - 2.4 mg/dL 07/09/2025 5:35 AM EDT [facility] Blood Arterial blood specimen / Unknown Venipuncture / Unknown 07/09/2025 4:57 AM EDT 07/09/2025 5:06 AM EDT Luanne Crawford MD LAB BLOOD ORDERABLES Final Result [facility] [address] [place] [address] * (ABNORMAL) Basic Metabolic Panel, Plasma (07/09/2025 4:57 AM EDT) [facility] Signature Glucose, Plasma 235(H) 74 - 99 mg/dL 07/09/2025 5:35 AM EDT [facility] BUN, Plasma 30(H) 7 - 21 mg/dL 07/09/2025 5:35 AM EDT [facility] Creatinine, Plasma 1.58(H) 0.60 - 1.10 mg/dL 07/09/2025 5:35 AM EDT [facility] BUN/Creatinine Ratio 19 07/09/2025 5:35 AM EDT [facility] Sodium, Plasma 136 136 - 145 mmol/L 07/09/2025 5:35 AM EDT [facility] Potassium, Plasma 3.5(L) 3.6 - 4.9 mmol/L 07/09/2025 5:35 AM EDT [facility] Chloride, Plasma 101 97 - 107 mmol/L 07/09/2025 5:35 AM EDT [facility] CO2, Plasma 23 22 - 29 mmol/L 07/09/2025 5:35 AM EDT [facility] Anion Gap 12 6 - 16 mmol/L 07/09/2025 5:35 AM EDT [facility] Total Calcium, Plasma 9.2 8.9 - 10.2 mg/dL 07/09/2025 5:35 AM EDT [facility] eGFRcr 40.0 mL/min/1.7 3m*2 07/09/2025 5:35 AM EDT [facility] Comment:Reported eGFRcr in m L/min/1.73m2 is based the CKD-EPI 2020 equation that does not use a race coefficient. Blood Arterial blood specimen / Unknown Venipuncture / Unknown 07/09/2025 4:57 AM EDT 07/09/2025 5:06 AM EDT us Luanne Crawford MD LAB BLOOD ORDERABLES Final Result [facility] [address] [place] [address] * (ABNORMAL) CBC W/O Differential (07/09/2025 4:57 AM EDT) WBC Count 32.25(H) 3.70 - 10.30 10*3/uL LAB HEMATOLOGY METHOD 07/09/2025 5:15 AM EDT [facility] RBC Count 3.89(L) 3.90 - 5.20 10*6/uL LAB HEMATOLOGY METHOD 07/09/2025 5:15 AM EDT [facility] HGB 11.0(L) 11.2 - 15.7 g/dL LAB HEMATOLOGY METHOD 07/09/2025 5:15 AM EDT [facility] HCT 33.4(L) 34.0 - 45.0 % LAB HEMATOLOGY METHOD 07/09/2025 5:15 AM EDT [facility] Platelet Count 358 155 - 369 10*3/uL LAB HEMATOLOGY METHOD 07/09/2025 5:15 AM EDT [facility] MCV 86 79 - 98 fL LAB HEMATOLOGY METHOD 07/09/2025 5:15 AM EDT [facility] MCH 28.3 26.0 - 32.0 pg LAB HEMATOLOGY METHOD 07/09/2025 5:15 AM EDT [facility] MCHC 32.9 30.7 - 35.5 g/dL LAB HEMATOLOGY METHOD 07/09/2025 5:15 AM EDT [facility] RDW 17.4(H) 11.5 - 14.5 % LAB HEMATOLOGY METHOD 07/09/2025 5:15 AM EDT [facility] MPV 10.0 8.8 - 12.5 fL LAB HEMATOLOGY METHOD 07/09/2025 5:15 AM EDT [facility] nRBC 0.0 <=0.0 per 100 WBCs LAB HEMATOLOGY METHOD 07/09/2025 5:15 AM EDT [facility] Blood Arterial blood specimen / Unknown Venipuncture / Unknown 07/09/2025 4:57 AM EDT 07/09/2025 5:07 AM EDT us Luanne Crawford MD LAB BLOOD ORDERABLES Final Result [facility] [address] [place] [address] * (ABNORMAL) POCT glucose meter (07/09/2025 4:03 [...] Comment 07/09/2025 4:05 AM EDT [facility] Linker Up ID Cheyanne Briceño 07/09/2025 4:05 AM EDT [facility] Device ID [id number] 07/09/2025 4:05 AM EDT [facility] Specimen Type POC Arterial 07/09/2025 4:05 AM EDT [facility] Blood Arterial blood specimen / Unknown 07/09/2025 4:03 AM EDT 07/09/2025 4:05 AM EDT us Luanne Crawford MD LAB POINT OF CARE TEST DOCKED DEVICE UNSOLICITED RESULTS Final Result [facility] [address] [place] [address] * XR Chest 1 View (07/09/2025 3:42 [...] for testing. Comment 07/09/2025 2:17 AM EDT [facility] Linker Up ID Cheyanne Briceño 07/09/2025 2:17 AM EDT [facility] Device ID [id number] 07/09/2025 2:17 AM EDT [facility] Specimen Type POC Arterial 07/09/2025 2:17 AM EDT [facility] Blood Arterial blood specimen / Unknown 07/09/2025 2:15 AM EDT 07/09/2025 2:17 AM EDT us Luanne Crawford MD LAB POINT OF CARE TEST DOCKED DEVICE UNSOLICITED RESULTS Final Result [facility] [address] [place] [address] * (ABNORMAL) Blood gas panel, arterial (07/09/2025 2:11 AM EDT) pH, Arterial 7.25(LL) 7.35 - 7.45 LAB HEMATOLOGY METHOD 07/09/2025 2:23 AM EDT [facility] pCO2, Arterial 56(H) 35 - 48 mmHg LAB HEMATOLOGY METHOD 07/09/2025 2:23 AM EDT [facility] pO2, Arterial 67(L) 83 - 108 mmHg LAB HEMATOLOGY METHOD 07/09/2025 2:23 AM EDT [facility] SO2, Measured, Arterial 91(L) 94 - 98 % LAB HEMATOLOGY METHOD 07/09/2025 2:23 AM EDT [facility] Base Excess, Arterial -2.7(L) -2.0 - 3.0 mmol/L LAB HEMATOLOGY METHOD 07/09/2025 2:23 AM EDT [facility] Bicarbonate, Calculated, Arterial 25 22 - 26 mmol/L LAB HEMATOLOGY METHOD 07/09/2025 2:23 AM EDT [facility] Hematocrit, Whole Blood 31.5(L) 34.0 - 45.0 % LAB HEMATOLOGY METHOD 07/09/2025 2:23 AM EDT [facility] Sodium, Whole Blood 135(L) 136 - 145 mmol/L LAB HEMATOLOGY METHOD 07/09/2025 2:23 AM EDT [facility] Potassium, Whole Blood 3.5(L) 3.6 - 4.9 mmol/L LAB HEMATOLOGY METHOD 07/09/2025 2:23 AM EDT [facility] Chloride, Whole Blood 103 97 - 107 mmol/L LAB HEMATOLOGY METHOD 07/09/2025 2:23 AM EDT [facility] Glucose, Whole Blood 279(H) 74 - 99 mg/dL LAB HEMATOLOGY METHOD 07/09/2025 2:23 AM EDT [facility] Ionized Calcium, Whole Blood 4.9 4.6 - 5.1 mg/dL LAB HEMATOLOGY METHOD 07/09/2025 2:23 AM EDT [facility] Lactate, Arterial, Whole Blood 1.2 0.5 - 1.6 mmol/L LAB HEMATOLOGY METHOD 07/09/2025 2:23 AM EDT [facility] Blood Arterial blood specimen / Unknown Arterial Puncture / Unknown 07/09/2025 2:11 AM EDT 07/09/2025 2:21 AM EDT us Luanne Crawford MD LAB BLOOD ORDERABLES Final Result [facility] [address] [place] [address] * (ABNORMAL) POCT glucose meter (07/09/2025 1:22 [...] Comment 07/09/2025 1:24 AM EDT [facility] Linker Up ID Cheyanne Briceño 07/09/2025 1:24 AM EDT [facility] Device ID [id number] 07/09/2025 1:24 AM EDT [facility] Specimen Type POC Arterial 07/09/2025 1:24 AM EDT [facility] Blood Arterial blood specimen / Unknown 07/09/2025 1:22 AM EDT 07/09/2025 1:24 AM EDT Luanne Crawford MD LAB POINT OF CARE TEST DOCKED DEVICE UNSOLICITED RESULTS Final Result [facility] [address] [place] [address] * (ABNORMAL) POCT glucose meter (07/09/2025 12:06 AM EDT) [facility] POCT Glucose 311(H) 74 - 99 mg/dL [...] Comment 07/09/2025 12:08 AM EDT [facility] Linker Up ID Cheyanne Briceño 07/09/2025 12:08 AM EDT [facility] Device ID [id number] 07/09/2025 12:08 AM EDT [facility] Specimen Type POC Arterial 07/09/2025 12:08 AM EDT [facility] Blood Arterial blood specimen / Unknown 07/09/2025 12:06 AM EDT 07/09/2025 12:08 AM EDT us Luanne Crawford MD LAB POINT OF CARE TEST DOCKED DEVICE UNSOLICITED RESULTS Final Result Performing Organization Address City/[facility]/ZIP Co de Phone Number [facility] [address] [place] [address] * APTT (07/08/2025 11:53 PM EDT) aPTT 25 25 - 35 sec LAB COAGULATION METHOD 07/09/2025 12:32 AM EDT [facility] Blood Venous blood specimen / Unknown Venipuncture / Unknown 07/08/2025 11:53 PM EDT 07/08/2025 11:59 PM EDT us Luanne Crawford MD LAB BLOOD ORDERABLES Final Result Performing Organization Address City/[facility] Co de Phone Number [facility] [address] [place] [address] * (ABNORMAL) Protime-INR (07/08/2025 11:53 PM EDT) Prothrombin Time 15.2(H) 12.0 - 14.3 sec LAB COAGULATION METHOD 07/09/2025 12:32 AM EDT [facility] INR 1.2(H) 0.9 - 1.1 LAB COAGULATION METHOD 07/09/2025 12:32 AM EDT [facility] Blood Venous blood specimen / Unknown Venipuncture / Unknown 07/08/2025 11:53 PM EDT 07/08/2025 11:59 PM EDT Narrative [facility] - 07/09/2025 12:32 AM EDT OPTIMAL INR RANGES FOR PATIENT ON ORAL ANTICOAGULANT THERAPY Prevention of venous thromboembolism INR 2.0 to 3.0 In patients with heart disease: Atrial fibrillation INR 2.0 to 3.0 Valvular heart disease INR 2.0 to 3.0 Tissue heart valves INR 2.0 to 3.0 Mechanical prosthetic valves INR 2.5 to 3.5 Prevention of recurrent [place] INR 2.5 to 3.5 us Luanne Crawford MD LAB BLOOD ORDERABLES Final Result Performing Organization Address City/[facility]/ZIP Co de Phone Number [facility] [address] [place] [address] * Phosphorus, Plasma (07/08/2025 11:52 PM EDT) Phosphorus, Plasma 3.6 2.5 - 4.5 mg/dL 07/09/2025 12:27 AM EDT [facility] Blood Venous blood specimen / Unknown Venipuncture / Unknown 07/08/2025 11:52 PM EDT 07/08/2025 11:59 PM EDT Luanne Crawford MD LAB BLOOD ORDERABLES Final Result Performing Organization Address [facility] Co de Phone Number [facility] [address] [place] [address] * (ABNORMAL) Magnesium, Plasma (07/08/2025 11:52 PM EDT) Pathologist [facility] Magnesium, Plasma 1.8(L) 1.9 - 2.4 mg/dL 07/09/2025 12:27 AM EDT [facility] Blood Venous blood specimen / Unknown Venipuncture / Unknown 07/08/2025 11:52 PM EDT 07/08/2025 11:59 PM EDT Luanne Crawford MD LAB BLOOD ORDERABLES Final Result Performing Organization Address [facility]/ZIP Co de Phone Number [facility] [address] [place] [address] * (ABNORMAL) Basic Metabolic Panel, Plasma (07/08/2025 11:52 PM EDT) Glucose, Plasma 314(H) 74 - 99 mg/dL 07/09/2025 12:27 AM EDT [facility] BUN, Plasma 32(H) 7 - 21 mg/dL 07/09/2025 12:27 AM EDT [facility] Creatinine, Plasma 1.80(H) 0.60 - 1.10 mg/dL 07/09/2025 12:27 AM EDT [facility] BUN/Creatinine Ratio 18 07/09/2025 12:27 AM EDT [facility] Sodium, Plasma 136 136 - 145 mmol/L 07/09/2025 12:27 AM EDT [facility] Potassium, Plasma 3.6 3.6 - 4.9 mmol/L 07/09/2025 12:27 AM EDT [facility] Chloride, Plasma 100 97 - 107 mmol/L 07/09/2025 12:27 AM EDT [facility] CO2, Plasma 23 22 - 29 mmol/L 07/09/2025 12:27 AM EDT [facility] Anion Gap 13 6 - 16 mmol/L 07/09/2025 12:27 AM EDT [facility] Total Calcium, Plasma 8.9 8.9 - 10.2 mg/dL 07/09/2025 12:27 AM EDT [facility] eGFRcr 34.2 mL/min/1.7 3m*2 07/09/2025 12:27 AM EDT [facility] Comment:Reported eGFRcr in m L/min/1.73m2 is based the CKD-EPI 2020 equation that does not use a race coefficient. Blood Venous blood specimen / Unknown Venipuncture / Unknown 07/08/2025 11:52 PM EDT 07/08/2025 11:59 PM EDT us Luanne Crawford MD LAB BLOOD ORDERABLES Final Result [facility] [address] [place] [address] * (ABNORMAL) CBC W/O Differential (07/08/2025 11:52 PM EDT) WBC Count 22.50(H) 3.70 - 10.30 10*3/uL LAB HEMATOLOGY METHOD 07/09/2025 12:16 AM EDT [facility] RBC Count 3.60(L) 3.90 - 5.20 10*6/uL LAB HEMATOLOGY METHOD 07/09/2025 12:16 AM EDT [facility] HGB 10.0(L) 11.2 - 15.7 g/dL LAB HEMATOLOGY METHOD 07/09/2025 12:16 AM EDT [facility] HCT 30.8(L) 34.0 - 45.0 % LAB HEMATOLOGY METHOD 07/09/2025 12:16 AM EDT [facility] Platelet Count 273 155 - 369 10*3/uL LAB HEMATOLOGY METHOD 07/09/2025 12:16 AM EDT [facility] MCV 86 79 - 98 fL LAB HEMATOLOGY METHOD 07/09/2025 12:16 AM EDT [facility] MCH 27.8 26.0 - 32.0 pg LAB HEMATOLOGY METHOD 07/09/2025 12:16 AM EDT [facility] MCHC 32.5 30.7 - 35.5 g/dL LAB HEMATOLOGY METHOD 07/09/2025 12:16 AM EDT [facility] RDW 16.9(H) 11.5 - 14.5 % LAB HEMATOLOGY METHOD 07/09/2025 12:16 AM EDT [facility] MPV 10.3 8.8 - 12.5 fL LAB HEMATOLOGY METHOD 07/09/2025 12:16 AM EDT [facility] nRBC 0.0 <=0.0 per 100 WBCs LAB HEMATOLOGY METHOD 07/09/2025 12:16 AM EDT [facility] Blood Venous blood specimen / Unknown Venipuncture / Unknown 07/08/2025 11:52 PM EDT 07/08/2025 11:59 PM EDT us Luanne Crawford MD LAB BLOOD ORDERABLES Final Result Performing Organization Address City/State/[facility] Co de Phone Number [facility] [address] [place] [address] * Richie auris Surveillance by PCR (07/08/2025 11:50 PM EDT) Richie auris PCR Result Not Detected Not Detected 07/09/2025 11:26 AM EDT [facility] Swab (Axilla and Groin) Non-blood Collection / Unknown 07/08/2025 11:50 PM EDT 07/09/2025 12:17 AM EDT Narrative [facility] - 07/09/2025 11:26 AM EDT This PCR assay was developed and its performance characteristics determined by [facility] as appropriate for clinical purposes. This assay has not been cleared or approved by the FDA, but is performed in a CLIA regulated laboratory that is qualified to perform high-complexity testing. Luanne Crawford MD LAB MICROBIOLOGY - GENERAL ORDERABLES Final Result Performing Organization Address [facility] Co de Phone Number [facility] [address] [place] [address] * Multi Drug Resistance Test (07/08/2025 11:50 PM EDT) Culture No growth at day 1 07/10/2025 5:45 AM EDT [facility] Swab (Nares and Leann Rectal) Non-blood Collection / Unknown 07/08/2025 11:50 PM EDT 07/09/2025 12:17 AM EDT Narrative [facility] - 07/10/2025 5:45 AM EDT This test was developed and its performance characteristics determined by the [facility]. Although the media is FDA-approved, it is not FDA-approved for all specimen types submitted. The FDA has determined that such clearance or approval is not necessary. This test is used for surveillance purposes. It should not be regarded as investigational or for research. The [facility] is certified under the Clinical Laboratory Improvement Amendments of 1988 (CLIA-88) as qualified to perform high complexity clinical laboratory testing. Luanne Crawford MD LAB MICROBIOLOGY - GENERAL ORDERABLES Final Result Performing Organization Address [facility] Co de Phone Number [facility] [address] [place] [address] * (ABNORMAL) Blood gas, arterial (07/08/2025 11:50 PM EDT) pH, Arterial 7.27(L) 7.35 - 7.45 LAB HEMATOLOGY METHOD 07/09/2025 12:00 AM EDT [facility] pCO2, Arterial 53(H) 35 - 48 mmHg LAB HEMATOLOGY METHOD 07/09/2025 12:00 AM EDT [facility] pO2, Arterial 114(H) 83 - 108 mmHg LAB HEMATOLOGY METHOD 07/09/2025 12:00 AM EDT [facility] SO2, Measured, Arterial 99(H) 94 - 98 % LAB HEMATOLOGY METHOD 07/09/2025 12:00 AM EDT [facility] Base Excess, Arterial -3.1(L) -2.0 - 3.0 mmol/L LAB HEMATOLOGY METHOD 07/09/2025 12:00 AM EDT [facility] Bicarbonate, Calculated, Arterial 24 22 - 26 mmol/L LAB HEMATOLOGY METHOD 07/09/2025 12:00 AM EDT [facility] Hematocrit, Whole Blood 31.0(L) 34.0 - 45.0 % LAB HEMATOLOGY METHOD 07/09/2025 12:00 AM EDT [facility] Sodium, Whole Blood 134(L) 136 - 145 mmol/L LAB HEMATOLOGY METHOD 07/09/2025 12:00 AM EDT [facility] Potassium, Whole Blood 3.5(L) 3.6 - 4.9 mmol/L LAB HEMATOLOGY METHOD 07/09/2025 12:00 AM EDT [facility] Chloride, Whole Blood 101 97 - 107 mmol/L LAB HEMATOLOGY METHOD 07/09/2025 12:00 AM EDT [facility] Glucose, Whole Blood 315(H) 74 - 99 mg/dL LAB HEMATOLOGY METHOD 07/09/2025 12:00 AM EDT [facility] Ionized Calcium, Whole Blood 5.1 4.6 - 5.1 mg/dL LAB HEMATOLOGY METHOD 07/09/2025 12:00 AM EDT [facility] Lactate, Arterial, Whole Blood 1.7(H) 0.5 - 1.6 mmol/L LAB HEMATOLOGY METHOD 07/09/2025 12:00 AM EDT [facility] Blood Arterial blood specimen / Unknown Arterial Puncture / Unknown 07/08/2025 11:50 PM EDT 07/08/2025 11:59 PM EDT us Richard Betts CRNA LAB BLOOD ORDERABLES Sarah bennett Result [facility] [address] [place] [address] * (ABNORMAL) POCT glucose meter (07/08/2025 11:49 PM EDT) [facility] POCT Glucose 316(H) 74 - 99 mg/dL [...] Comment 07/08/2025 11:50 PM EDT [facility] Linker Up ID Mary Cotto 07/08/2025 11:50 PM EDT [facility] Device ID [id number] 07/08/2025 11:50 PM EDT [facility] Specimen Type POC Arterial 07/08/2025 11:50 PM EDT [facility] Blood Arterial blood specimen / Unknown 07/08/2025 11:49 PM EDT 07/08/2025 11:50 PM EDT Luanne Crawford MD LAB POINT OF CARE TEST DOCKED DEVICE UNSOLICITED RESULTS Final Result [facility] [address] [place] [address] * (ABNORMAL) Tissue Culture and Gram Stain (07/08/2025 10:48 PM EDT) [facility] Culture Light Growth 07/13/2025 1:13 PM EDT [facility] Culture 1+ Schaalia turicensis (formerly known as Actinomyces turicensis)(A) 07/13/2025 1:13 PM EDT [facility] Comment: The organism value for this result has been updated. These results have been appended to the previously preliminary verified report. This is a corrected result. Previous organism was Gram positive anthony on 07/11/2025 at 1052 EDT. Culture 1+ Staphylococcus hominis(A) 07/13/2025 1:13 PM EDT [facility] Comment: This isolate has been identified using the FDA Approved [employer] System The organism value for this result has been updated. These results have been appended to the previously preliminary verified report. Gram Stain Result Few Polymorphonuclear leukocytes(A) 07/13/2025 1:13 PM EDT [facility] Gram Stain Result Numerous Gram negative rods(A) 07/13/2025 1:13 PM EDT [facility] Gram Stain Result Few Gram positive cocci in pairs(A) 07/13/2025 1:13 PM EDT [facility] Tissue Topography unknown / Unknown 07/08/2025 10:48 PM EDT 07/09/2025 12:14 AM EDT Comment:Pre-op diagnosis: Necrotizing fasciitis (CMS/HCC) [M72.6] Luanne Crawford MD LAB MICROBIOLOGY - GENERAL ORDERABLES Final Result [facility] [address] [place] [address] * Transfuse fresh frozen plasma (07/08/2025 10:35 PM EDT) Richard Betts CRNA BLOOD TRANSFUSION ORDERAB LES Final Result * Transfuse RBC (07/08/2025 10:29 PM EDT) Richard Betts PUBLIC POLICY COORDINATOR BLOOD TRANSFUSION ORDERAB LES Final Result * (ABNORMAL) Blood gas panel, arterial (07/08/2025 10:08 PM EDT) pH, Arterial 7.28(L) 7.35 - 7.45 LAB HEMATOLOGY METHOD 07/08/2025 10:15 PM EDT [facility] pCO2, Arterial 50(H) 35 - 48 mmHg LAB HEMATOLOGY METHOD 07/08/2025 10:15 PM EDT [facility] pO2, Arterial 121(H) 83 - 108 mmHg LAB HEMATOLOGY METHOD 07/08/2025 10:15 PM EDT [facility] SO2, Measured, Arterial 99(H) 94 - 98 % LAB HEMATOLOGY METHOD 07/08/2025 10:15 PM EDT [facility] Base Excess, Arterial -3.6(L) -2.0 - 3.0 mmol/L LAB HEMATOLOGY METHOD 07/08/2025 10:15 PM EDT [facility] Bicarbonate, Calculated, Arterial 23 22 - 26 mmol/L LAB HEMATOLOGY METHOD 07/08/2025 10:15 PM EDT [facility] Hematocrit, Whole Blood 29.9(L) 34.0 - 45.0 % LAB HEMATOLOGY METHOD 07/08/2025 10:15 PM EDT [facility] Sodium, Whole Blood 133(L) 136 - 145 mmol/L LAB HEMATOLOGY METHOD 07/08/2025 10:15 PM EDT [facility] Potassium, Whole Blood 3.5(L) 3.6 - 4.9 mmol/L LAB HEMATOLOGY METHOD 07/08/2025 10:15 PM EDT [facility] Chloride, Whole Blood 101 97 - 107 mmol/L LAB HEMATOLOGY METHOD 07/08/2025 10:15 PM EDT [facility] Glucose, Whole Blood 351(H) 74 - 99 mg/dL LAB HEMATOLOGY METHOD 07/08/2025 10:15 PM EDT [facility] Ionized Calcium, Whole Blood 4.5(L) 4.6 - 5.1 mg/dL LAB HEMATOLOGY METHOD 07/08/2025 10:15 PM EDT [facility] Lactate, Arterial, Whole Blood 2.1(H) 0.5 - 1.6 mmol/L LAB HEMATOLOGY METHOD 07/08/2025 10:15 PM EDT [facility] Blood Arterial blood specimen / Unknown 07/08/2025 10:08 PM EDT 07/08/2025 10:14 PM EDT Comment:Pre-op diagnosis: Necrotizing fasciitis (CMS/HCC) [M72.6] us Luanne Crawford MD LAB BLOOD ORDERABLES Final Result [facility] [address] [place] [address] * Surgical Pathology Exam (07/08/2025 10:07 PM EDT) Case Report Surgical Pathology Case: [id number] Authorizing Provider: Luanne Crawford MD Collected: 07/08/20251 Ordering Location: [facility] Received: 07/09/2025 0761 Pathologist: Boaz Fernandez MD Specimens: A) - Other (specify site), saphenous vein B) - Other (specify site), right leg 07/10/2025 3:45 PM EDT [facility] Final Diagnosis A. SAPHENOUS VEIN SEGMENT, REMOVAL: - SCLEROTIC VEIN WITH ADVENTITIAL INFLAMMATION. B. RIGHT LEG TISSUE DEBRIDEMENT: - ACUTE NECROTIZING FASCIITIS OF SKIN AND SOFT TISSUE. 07/10/2025 3:45 PM EDT [facility] at 1545 EDT Clinical Information Necrotizing fasciitis; post recent boil self popped wound. 50 y.o. female with PMH of DM, hidradenitis supparativa, current smoker (1.5 ppd), UTI, depression, anxiety, asthma, HLD, Celiac disease, 07/10/2025 3:45 PM EDT [facility] Gross Description A. SAPHENOUS VEIN Specimen is received fresh and placed in formalin labeled saphenous vein. Received is a segment of vessel that measures 8.5 cm in length and up to 0.7 cm in diameter. Specimen is sectioned to reveal a pinpoint lumen with dried blood. Soot Blower sections are taken and submitted in cassette A1. Cold Time: 8h 56m Abhishek Baptiste MD B. RIGHT LEG Specimen is received fresh labeled right leg. Received are numerous fragments of skin and underlying soft tissue that measure in aggregate 25.0 x 25.0 x 7.5 cm. Scattered areas of skin and soft tissue notable for being green-black, foul-smelling and extensively necrotic. Soot Blower sections are taken and submitted in cassettes B1-B2. Abhishek Baptiste MD 07/10/2025 3:45 PM EDT [facility] Note: A resident was involved in the service. I attest I examined the relevant preparations for the specimens and confirmed the diagnosis or interpretation. 07/10/2025 3:45 PM EDT [facility] Tissue Topography unknown / Unknown 07/08/2025 10:07 PM EDT 07/09/2025 7:40 AM EDT Comment:Pre-op diagnosis: Necrotizing fasciitis (CMS/HCC) [M72.6] Tissue specimen (specimen) Topography unknown / Unknown 07/08/2025 10:49 PM EDT 07/09/2025 7:40 AM EDT Comment:Pre-op diagnosis: Necrotizing fasciitis (CMS/HCC) [M72.6] Luanne Crawford MD LAB PATHOLOGY ORDERABLES F inal Result [facility] [address] [place] [address] * Transfuse fresh frozen plasma (07/08/2025 10:04 PM EDT) Richard N Yongbang [employer] COORDINATOR BLOOD TRANSFUSION ORDERAB LES Final Result * Transfuse fresh frozen plasma: 1 Units (07/08/2025 10:04 PM EDT) Richard N Yongbang PUBLIC POLICY COORDINATOR BLOOD TRANSFUSION ORDERAB LES Final Result * Transfuse RBC (07/08/2025 9:41 PM EDT) Richard N [employer] PUBLIC POLICY COORDINATOR BLOOD TRANSFUSION ORDERAB LES Final Result * Transfuse RBC: 1 Units (07/08/2025 9:41 PM EDT) Richard N Yong[employer]ang PUBLIC POLICY COORDINATOR BLOOD TRANSFUSION ORDERAB LES Final Result * Prepare Fresh Frozen Plasma: 2 Units (07/08/2025 9:24 PM EDT) Product Code [id number] BLOO D BANK Dispense Status Transfused BLOOD BANK Blood Expiration Date [id number] BLOOD BANK Unit Number [id number] CH B LOOD BANK Product Blood Type 5100 BLOOD BANK Blood Type O+ CH BLOOD BANK Product Code [id number] BLOO D BANK Dispense Status Transfused BLOOD BANK Blood Expiration Date [id number] BLOOD BANK Unit Number [id number] CH B LOOD BANK Product Blood Type 5100 BLOOD BANK Blood Type O+ CH BLOOD BANK Blood Venous blood specimen / Unknown Richard N [employer]ong[employer] PUBLIC POLICY COORDINATOR BLOOD BANK PRODUCT ORDERA BLES Final Result BLOOD BANK [address] [place] [address], [place] * Prepare Leukocyte Reduced RBC: 2 Units (07/08/2025 9:23 PM EDT) Product Code [id number] CH BLOO D BANK Dispense Status Transfused CH BLOOD BANK Blood Expiration Date BLOOD BANK Unit Number [id number] CH B LOOD BANK Product Blood Type 5100 CH BLOOD BANK Blood Type O+ CH BLOOD BANK Crossmatch Compatible CH BLOOD BANK Product Code [id number] CH BLOO D BANK Dispense Status Transfused CH BLOOD BANK Blood Expiration Date BLOOD BANK Unit Number [id number] CH B LOOD BANK Product Blood Type 5100 CH BLOOD BANK Blood Type O+ CH BLOOD BANK Crossmatch Compatible CH BLOOD BANK Other us Richard Betts [facility] BLOOD BANK PRODUCT ORDERA BLES Final Result BLOOD BANK [address] [place] [address], * (ABNORMAL) Abscess Culture and Gram Stain (07/08/2025 9:06 PM EDT) Culture Light Growth 07/13/2025 1:13 PM EDT [facility] Culture 1+ Mixed skin silvestre(A) 07/13/2025 1:13 PM EDT [facility] Comment: The organism value for [...] as Actinomyces turicensis)(A) 07/13/2025 1:13 PM EDT [facility] Comment: This result was determined by MALDI tof Mass spectrometry. This assay was developed and its performance characteristics determined by [facility] as appropriate for clinical purposes. [...] Gram positive cocci(A) 07/13/2025 1:13 PM EDT [facility] Gram Stain Result Few Gram variable rods(A) 07/13/2025 1:13 PM EDT [facility] Gram Stain Result Moderate Gram positive rods(A) 07/13/2025 1:13 PM EDT [facility] Gram Stain Result Numerous Gram negative rods(A) 07/13/2025 1:13 PM EDT [facility] Gram Stain Result Numerous Gram negative coccobacilli(A) 07/13/2025 1:13 PM EDT [facility] Gram Stain Result Moderate Polymorphonuclear leukocytes(A) 07/13/2025 1:13 PM EDT [facility] Swab Topography unknown / Unknown 07/08/2025 9:06 PM EDT 07/08/2025 9:15 PM EDT Comment:Pre-op diagnosis: Necrotizing fasciitis (CMS/HCC) [M72.6] us Luanne Crawford MD LAB MICROBIOLOGY - GENERAL ORDERABLES Final Result [facility] [address] [place] [address] * (ABNORMAL) POCT arterial blood gas gem (07/08/2025 8:51 PM EDT) pH, Arterial 7.28(L) 7.35 - 7.45 07/08/2025 8:53 PM EDT [facility] pCO2, Arterial 53(H) 35 - 48 mm Hg 07/08/2025 8:53 PM EDT [facility] pO2, Arterial 152(H) 83 - 108 mm Hg 07/08/2025 8:53 PM EDT [facility] SO2, Arterial 99(H) 94 - 98 % 07/08/2025 8:53 PM EDT [facility] Base Excess, Arterial -2.3(L) -2 - 3 mmol/L 07/08/2025 8:53 PM EDT [facility] HCO3, Arterial 24.9 22 - 26 mmol/L 07/08/2025 8:53 PM EDT [facility] Total Hemoglobin, Arterial, Whole Blood 10.9(L) 11.2 - 15.7 g/dL 07/08/2025 8:53 PM EDT [facility] Hematocrit, Arterial 33.0(L) 34.0 - 45.0 % 07/08/2025 8:53 PM EDT [facility] Sodium, Arterial 131(L) 136 - 145 mmol/L 07/08/2025 8:53 PM EDT [facility] Potassium, Arterial 3.8 3.6 - 4.9 mmol/L 07/08/2025 8:53 PM EDT [facility] Chloride, Whole Blood 98 97 - 107 mmol/L 07/08/2025 8:53 PM EDT [facility] Glucose, Arterial 418(H) 74 - 99 mg/dL 07/08/2025 8:53 PM EDT [facility] Ionized Calcium, Arterial 4.9 4.6 - 5.1 mg/dL 07/08/2025 8:53 PM EDT [facility] Lactate, Arterial 1.6 0.5 - 1.6 mmol/L 07/08/2025 8:53 PM EDT [facility] Body Temperature 37.0 Celsius 07/08/2025 8:53 PM EDT [facility] pH, Temp Corrected, Arterial 7.28(L) 7.35 - 7.45 07/08/2025 8:53 PM EDT [facility] pCO2, Temp Corrected, Arterial 53(H) 35 - 48 mm Hg 07/08/2025 8:53 PM EDT [facility] pO2, Temp Corrected, Arterial 152(H) 83 - 108 mm Hg 07/08/2025 8:53 PM EDT [facility] Linker Up ID Yadi Goel 07/08/2025 8:53 PM EDT [facility] Blood, Arterial Whole blood specimen / Unknown 07/08/2025 8:51 PM EDT 07/08/2025 8:53 PM EDT us Luanne Crawford MD LAB POINT OF CARE TEST DOCKED DEVICE UNSOLICITED RESULTS Final Result [facility] [address] [place] [address] * ED HIV 1/2 Antibody/Antigen Screen w/Reflex to HIV 1/2 Differentiation (07/08/2025 6:14 PM EDT) [facility] HIV 1 & 2 Antibody/Antigen Screen Non Reactive Non Reactive 07/08/2025 7:12 PM EDT [facility] Comment:Screening for HIV 1 & 2 antibodies, and P24 antigen is NONREACTIVE. No confirmatory testing is required. Blood Venous blood specimen / Unknown Venipuncture / Unknown 07/08/2025 6:14 PM EDT 07/08/2025 6:30 PM EDT My Charles MD LAB BLOOD ORDERABLES Fi nal Result Performing Organization Address City/[facility]/ZIP Co de Phone Number [facility] [address] [place] [address] * Hepatitis C Antibody - ED (07/08/2025 6:14 PM EDT) [facility] Hepatitis C Antibody Negative Negative 07/08/2025 7:[address] [facility] Blood Venous blood specimen / Unknown Venipuncture / Unknown 07/08/2025 6:14 PM EDT 07/08/2025 6:30 PM EDT My Charles MD LAB BLOOD ORDERABLES Fi nal Result Performing Organization Address City/[facility]/ZIP Co de Phone Number [facility] [address] [place] [address] * (ABNORMAL) C-Reactive protein (07/08/2025 6:14 PM EDT) [facility] CRP, Plasma 462.2(H) <=8.0 mg/L 07/08/2025 7:18 PM EDT [facility] Blood Venous blood specimen / Unknown Venipuncture / Unknown 07/08/2025 6:14 PM EDT 07/08/2025 6:23 PM EDT Narrative [facility] - 07/08/2025 7:18 PM EDT This CRP test is appropriate for assessment of infection, systemic inflammation and/or tissue injury. To assess cardiovascular disease risk order high sensitivity CRP (CRPH). us My Charles MD LAB BLOOD ORDERABLES Fi nal Result Performing Organization Address City/[facility]/ZIP Co de Phone Number [facility] [address] [place] [address] * (ABNORMAL) Lactic acid, venous (07/08/2025 6:14 PM EDT) Lactate, Venous, Whole Blood 2.6(H) 0.5 - 2.2 mmol/L LAB HEMATOLOGY METHOD 07/08/2025 6:29 PM EDT [facility] Blood Venous blood specimen / Unknown Venipuncture / Unknown 07/08/2025 6:14 PM EDT 07/08/2025 6:23 PM EDT My Charles MD LAB BLOOD ORDERABLES Fi nal Result Performing Organization Address [facility] Co de Phone Number [facility] [address] [place] [address] * Type and screen (07/08/2025 6:14 PM [...] ORD ERABLES Final Result Performing Organization Address City/[facility] Co de Phone Number BLOOD BANK [address] [place] [address], * (ABNORMAL) PT-INR (07/08/2025 6:14 PM EDT) Prothrombin Time 15.3(H) 12.0 - 14.3 sec 07/08/2025 6:56 PM EDT [facility] INR 1.2(H) 0.9 - 1.1 07/08/2025 6:56 PM EDT [facility] Blood Venous blood specimen / Unknown Venipuncture / Unknown 07/08/2025 6:14 PM EDT 07/08/2025 6:23 PM EDT Narrative [facility] - 07/08/2025 6:56 PM EDT OPTIMAL INR RANGES FOR PATIENT ON ORAL ANTICOAGULANT THERAPY Prevention of venous thromboembolism INR 2.0 to 3.0 In patients with heart disease: Atrial fibrillation INR 2.0 to 3.0 Valvular heart disease INR 2.0 to 3.0 Tissue heart valves INR 2.0 to 3.0 Mechanical prosthetic valves INR 2.5 to 3.5 Prevention of recurrent TX INR 2.5 to 3.5 us My Charles MD LAB BLOOD ORDERABLES Fi nal Result [facility] [address] [place] [address] * (ABNORMAL) CBC w/diff (07/08/2025 6:14 PM EDT) WBC Count 26.15(H) 3.70 - 10.30 10*3/uL LAB HEMATOLOGY METHOD 07/08/2025 9:04 PM EDT [facility] RBC Count 3.97 3.90 - 5.20 10*6/uL LAB HEMATOLOGY METHOD 07/08/2025 9:04 PM EDT [facility] HGB 10.9(L) 11.2 - 15.7 g/dL LAB HEMATOLOGY METHOD 07/08/2025 9:04 PM EDT [facility] HCT 33.6(L) 34.0 - 45.0 % LAB HEMATOLOGY METHOD 07/08/2025 9:04 PM EDT [facility] Platelet Count 329 155 - 369 10*3/uL LAB HEMATOLOGY METHOD 07/08/2025 9:04 PM EDT [facility] MCV 85 79 - 98 fL LAB HEMATOLOGY METHOD 07/08/2025 9:04 PM EDT [facility] MCH 27.5 26.0 - 32.0 pg LAB HEMATOLOGY METHOD 07/08/2025 9:04 PM EDT [facility] MCHC 32.4 30.7 - 35.5 g/dL LAB HEMATOLOGY METHOD 07/08/2025 9:04 PM EDT [facility] RDW 17.3(H) 11.5 - 14.5 % LAB HEMATOLOGY METHOD 07/08/2025 9:04 PM EDT [facility] MPV 10.1 8.8 - 12.5 fL LAB HEMATOLOGY METHOD 07/08/2025 9:04 PM EDT [facility] nRBC 0.0 <=0.0 per 100 WBCs LAB HEMATOLOGY METHOD 07/08/2025 9:04 PM EDT [facility] Differential Type Automated LAB HEMATOLOGY METHOD 07/08/2025 9:04 PM EDT [facility] Neutrophils % 91 % LAB HEMATOLOGY METHOD 07/08/2025 9:04 PM EDT [facility] Lymphocytes % 4 % LAB HEMATOLOGY METHOD 07/08/2025 9:04 PM EDT [facility] Monocytes % 4 % LAB HEMATOLOGY METHOD 07/08/2025 9:04 PM EDT [facility] Eosinophils % 0 % LAB HEMATOLOGY METHOD 07/08/2025 9:04 PM EDT [facility] Basophils % 0 % LAB HEMATOLOGY METHOD 07/08/2025 9:04 PM EDT [facility] Immature Granulocytes % 1 % LAB HEMATOLOGY METHOD 07/08/2025 9:04 PM EDT [facility] Neutrophils Absolute 23.61(H) 1.60 - 6.10 10*3/uL LAB HEMATOLOGY METHOD 07/08/2025 9:04 PM EDT [facility] Lymphocytes Absolute 1.15(L) 1.20 - 3.90 10*3/uL LAB HEMATOLOGY METHOD 07/08/2025 9:04 PM EDT [facility] Monocytes Absolute 0.98(H) 0.30 - 0.90 10*3/uL LAB HEMATOLOGY METHOD 07/08/2025 9:04 PM EDT [facility] Eosinophils Absolute 0.04 0.00 - 0.50 10*3/uL LAB HEMATOLOGY METHOD 07/08/2025 9:04 PM EDT [facility] Basophils Absolute 0.09 0.00 - 0.10 10*3/uL LAB HEMATOLOGY METHOD 07/08/2025 9:04 PM EDT [facility] Immature Granulocytes Absolute 0.25(H) 0.00 - 0.06 10*3/uL LAB HEMATOLOGY METHOD 07/08/2025 9:04 PM EDT [facility] Blood Venous blood specimen / Unknown Venipuncture / Unknown 07/08/2025 6:14 PM EDT 07/08/2025 6:23 PM EDT Narrative [facility] - 07/08/2025 9:04 PM EDT Therapeutic decision making should be based on absolute values, rather than percentages. us My Charles MD LAB BLOOD ORDERABLES Fi nal Result [facility] [address] [place] [address] * (ABNORMAL) CMP (07/08/2025 6:14 PM EDT) Glucose, Plasma 411(H) 74 - 99 mg/dL 07/08/2025 7:18 PM EDT [facility] BUN, Plasma 33(H) 7 - 21 mg/dL 07/08/2025 7:18 PM EDT [facility] Creatinine, Plasma 1.99(H) 0.60 - 1.10 mg/dL 07/08/2025 7:18 PM EDT [facility] BUN/Creatinine Ratio 17 07/08/2025 7:18 PM EDT [facility] Sodium, Plasma 131(L) 136 - 145 mmol/L 07/08/2025 7:18 PM EDT [facility] Potassium, Plasma 4.0 3.6 - 4.9 mmol/L 07/08/2025 7:18 PM EDT [facility] Chloride, Plasma 93(L) 97 - 107 mmol/L 07/08/2025 7:18 PM EDT [facility] CO2, Plasma 22 22 - 29 mmol/L 07/08/2025 7:18 PM EDT [facility] Anion Gap 16 6 - 16 mmol/L 07/08/2025 7:18 PM EDT [facility] Total Calcium, Plasma 9.3 8.9 - 10.2 mg/dL 07/08/2025 7:18 PM EDT [facility] Total Protein 6.0(L) 6.3 - 7.9 g/dL 07/08/2025 7:18 PM EDT [facility] Albumin, Plasma 2.6(L) 3.5 - 5.2 g/dL 07/08/2025 7:18 PM EDT [facility] AST, Plasma 16 10 - 35 U/L 07/08/2025 7:18 PM EDT [facility] ALT, Plasma 15 10 - 35 U/L 07/08/2025 7:18 PM EDT [facility] Alkaline Phosphatase, Plasma 165(H) 35 - 104 U/L 07/08/2025 7:18 PM EDT [facility] Total Bilirubin, Plasma 0.4 0.2 - 1.1 mg/dL 07/08/2025 7:18 PM EDT [facility] eGFRcr 30.3 mL/min/1.7 3m*2 07/08/2025 7:18 PM EDT [facility] Comment:Reported eGFRcr in m L/min/1.73m2 is based the CKD-EPI 2020 equation that does not use a race coefficient. Blood Venous blood specimen / Unknown Venipuncture / Unknown 07/08/2025 6:14 PM EDT 07/08/2025 6:23 PM EDT us My Charles MD LAB BLOOD ORDERABLES Fi nal Result [facility] [address] [place] [address] * IN CRITICAL CARE, E/M 30-74 MINUTES (07/08/2025 5:58 [...] sleep apnea) Obstructive sleep apnea (adult) (pediatric) Necrotizing fasciitis (CMS/HCC) Necrotizing fasciitis documented in [...] ([employer])) external solution As needed, Starting on Tue07/11/25 at 1501, Until Tomasa 07/11/25 at 1529, Routine Given 07/11/2025 3:01 PM EDT 1 Application documented in this encounter Active and Recently [...] Tomasa 07/11/25 at 1100, Until Discontinued, Routine 100 (Given - Provider: Josi Ann RN)165 (Given [...] Comment: no wv in place due to [facility] dc) polyethylene glycol (Miralax) packet 17 [...] Reason: Patient/family refused)2018 (Not Given - Provider: Ienssa Almazan RN - Reason: Patient/family refused) 08 [...] Ann RN) 0056 (Given - Provider: Inessa Almazan, NAHID)1232 (Not Given - Provider: Kalyn Martell RN [...] documented as of this encounter Care Teams Information Systems Manager Relationship Specialty Start Date End Date Dhillon, Yenny C, PUBLIC INFORMATION COORDINATOR [address] [place] [address] PCP - General 07/22/23 documented as of this encounter
--- OUTSIDE RECORDS SUMMARY | 2025-07-11 14:12 | XMS_ITS | Encounter Summary ---
Author Organization Healthcare Address [address] [place] [address] Care Team Providers Care Chief Service Dispatcher Name Role Phone Yenny Dhillon APRN Primary Care Provider [phone] Reason for Visit * Auth/Cert (Routine) Specialty Diagnoses / Procedures Referred By Bharati t Referred To Contact Diagnoses Necrotizing fasciitis (CMS/HCC) Necrotizing Fascitis Brittany Crawford MD [address] [facility] [address] [place] [address] Phone: tel: fax: PAV A Inpatient [address] [place] [address] Phone: tel: Referral ID Status Reason Start Date Expiration Date Visits Re quested Visits Authorized [id number] 1 1 Encounter Details Date Type Department Care Team ([facility] st Contact Info) Description 07/11/2025 2:12 PM EDT Anesthesia Event PAV A OPERATING ROOM [address] [place] [address] Eddie Fulton MD [address] [place] [address] Yadi Goel MD [address] [place] [address] Anesthesia Record Procedure Summary Procedure Name Responsible Anesthesiologist Anesthesia Start Time Anesthesia Stop Time APPLICATION OR REPLACEMENT, WOUND VAC (Right: Groin) Eddie Fulton MD 07/11/25 1412 07/11/25 1538 Events Date Time Event Comment 07/11/2025 1244 1412 An Start The patient was reevaluated immediately before sedation and remains eligible for anesthesia plan. 1412 An Start Data 1412 In Room 1421 An Induction The patient was reevaluated immediately before moderate or deep sedation use and before anesthesia induction. 1423 An Intubation 1424 Anesthesia Ready 1446 Proc Start 1518 Proc Fin 1523 An Extubation 1527 an stop data 1529 Out of Room 1535 Handoff to Receiving I compl eted my handoff to the receiving clinician during which we: 1. Identified the patient 2. Identified the responsible provider 3. Reviewed the pertinent medical history 4. Discussed the surgical course 5. Reviewed intra-op anesthesia management and issues during anesthesia 6. Set expectations for post-procedure period 7. Allowed opportunity for questions and acknowledgement of understanding. 1538 An Stop Meds Name Total fentaNYL (Sublimaze) injection 50 mcg/mL 100 mcg lidocaine PF (Xylocaine-MPF) 2% 100 mg propofol (Diprivan) injection 10 mg/mL 2 00 mg rocuronium (ZeMuron) injection 10 mg/mL 50 mg phenylephrine (Bebeto-Synephrine) prefilled syringe 1 mg/10 mL 200 mcg ondansetron (Zofran) injection 2 mg/mL 4 mg sugammadex (Bridion) injection 100 mg/mL 200 mg insulin regular in sodium ch loride 0.9 % 1 UNIT/ML infusion (Standard Insulin Protocol) 0.91 Units norepinephrine 8 mg/250 mL (0.032 mg/mL) infusion 0.12 mg cefepime (Maxipime) vial 2 g 2 g sodium chloride 0.9 % infusion 400 mL * Agents No agents on file. * Blood No blood administrations on file. Lines, Drains, and Airways Type Details Placement Removal Wound 07/08/25; 2108; Y; Y es; Infection; Necrotizing; Leg; Right, Upper, Inner 07/08/252108 by Ema Antoine RN Urethral Catheter Placement Date: 12/01; Placement Time: 2033; Inserted by: KEYLA WHITFIELD; Type: Temperature probe; Size: 16 Fr.; Balloon Size: 10 mL; Urine Returned: Yes; Removal Date: 07/16/25; Removal Time: 1145; Removal Reason: Per order 07/08/252033 by Ema Antoine RN 07/16/25 114 by Denia Boo RN CVC Triple Lumen [...] Yadi Goel MD 07/12/251609 by Jeana Bear ETT Placement Date: 03/01; Placement Time: 142 (created via procedure documentation); Mask Ventilation: 1; Technique: Direct laryngoscopy; Type: ETT - single; Single Lumen Tube Size: 7.5 mm; Cuffed: Yes; Laryngoscope: Codi; Blade Size: 3; Location: Oral; Grade View: Grade I; Insertion Attempts: 1; Placement Verification: Auscultation, Capnometry; Airway Comments: Atraumatic. No change to dentition. ; Placed by: KING; Removal Date: 07/11/25; Removal Time: 1523 07/11/25 142 by Luis Manuel Sharpe CRNA 07/11/25 152 by Luis Manuel Sharpe CRNA documented in this encounter Social History Tobacco [...] 1 Month) No 025 8:00 AM EDT Ayana Amato RN 2. Non-Specific Active Suici silvia Thoughts (Past 1 Month) No 07/11/2025 8:00 AM EDT Ayana Amato RN 6. Suicidal Behavior (Lifetime) No 8:00 AM EDT Ayana Amato RN documented as of this encounter Miscellaneous Notes * Anesthesia Postprocedure Evaluation - Luis Manuel Sharpe CRNA - 07/11/2025 3:35 PM EDT Patient: Ashley Brown Anesthesia Type: general Vitals Value Taken Time BP 114/47 07/11/25 15:32 Temp 97.8 07/11/25 15:38 Pulse 103 07/11/25 15:37 Resp 22 07/11/25 15:37 SpO2 90 % 07/11/25 15:37 Vitals shown include unfiled device data. Anesthesia Post Evaluation Patient location during evaluation: PACU Patient participation: complete - patient participated Level of consciousness: awake Pain management: adequate (pain score 0-3) Airway patency: natural airway Cardiovascular status: acceptable and hemodynamically stable Respiratory status: acceptable, face mask, nonlabored ventilation and spontaneous ventilation Hydration status: acceptable Nausea/Vomiting: No No notable events documented. * Anesthesia Procedure Notes - Luis Manuel Sharpe CRNA - 07/11/2025 2:37 PM EDT Associated Order(s): Airway Airway Date/Time: 07/11/2025 2:23 PM Reason: elective Airway not difficult General Information and Staff Patient location during procedure: OR FURNACE STOCK INSPECTOR: Luis Manuel Sharpe CRNA Performed: FURNACE STOCK INSPECTOR Patient Condition Indications for airway management: anesthesia Patient position: sniffing Final Airway Details Final airway type: endotracheal airway Successful airway: ETT Cuffed: yes Successful intubation technique: direct laryngoscopy Adjuncts used in placement: intubating stylet Endotracheal tube insertion site: oral Blade: Codi Blade size: #3 ETT size (mm): 7.5 Cormack-Lehane Classification: grade I - full view of glottis Placement verified by: chest auscultation and capnometry Measured from: lips ETT to lips (cm): 21 Additional Comments Atraumatic. No change to dentition. * Anesthesia Preprocedure Evaluation - Eddie Fulton MD - 07/11/2025 7:20 AM EDT Procedure Information Date/Time: 07/11/25 1030 Procedure: APPLICATION OR REPLACEMENT, WOUND VAC (Right) Location: [facility] / [place] Surgeons: Dorcas Hennessy MD HPI Ashley Brown is a 50 y.o. female with body mass index is 56.12 kg/m??. who presents with Necrotizing fasciitis (CMS/HCC) now for above procedure PMH: HTN, HLD, JOSEP, DMII, morbid obesity, COPD, seizures (h/o absence sz as a juvenile), Hidradenitis suppurativa, celiac disease AIRWAY HISTORY: Date Difficult Airway Blade Size ETT Size C-L Class Final Type Intubation Method 07/10/25 No 07/08/25 No 2 7.5 grade I - full view of glottis endotracheal airway direct laryngoscopy NPO STATUS:>8hr Activity Level/METS: <4 Type & Screen Expires: REORDERED Lab Results Component Value Date ABO O Positive 07/08/2025 ALLERGIES Allergies[1] MEDICATIONS Outpatient Current Outpatient Medications Medication Instructions ??? budesonide-formoterol (Symbicort) 160-4.5 MCG/ACT inhaler 2 puffs, 2 times daily ??? busPIRone (BUSPAR) 15 mg, 3 times daily ??? cholecalciferol (Vitamin D-3) 5,000 Units tablet 1 tablet, Daily ??? DULoxetine (CYMBALTA) 60 mg, Daily ??? fluticasone (Flonase) 50 MCG/ACT nasal spray 1 spray, 2 times daily ??? folic acid (FOLVITE) 1 mg, ZZ Daily RT ??? lamoTRIgine (LAMICTAL XR) 100 mg, Daily ??? Linzess 72 MCG capsule capsule Take 1 capsule by mouth daily before breakfast. ??? loratadine (CLARITIN) 10 mg, Daily ??? metoprolol succinate XL (TOPROL-XL) 100 mg, Daily ??? mirabegron ER (MYRBETRIQ) 25 mg, Oral, Daily ??? montelukast (SINGULAIR) 10 mg, Daily ??? naproxen (NAPROSYN) 500 mg, 2 times daily with meals ??? polycarbophil (EQ Fiber Therapy) 625 MG tablet 1 tablet, Daily ??? rosuvastatin (CRESTOR) 20 mg, Daily ??? valsartan-hydroCHLOROthiazide (Diovan-HCT) 320-12.5 MG tablet 1 tablet, ZZ Daily RT ??? Vitamin E 180 MG (400 UNIT) capsule 1 tablet, Daily Scheduled Current Scheduled Medications[2] PRNs Current PRN Medications[3] SURGICAL HX: Surgical History[4] SOCIAL HX: Social History[5] OBJECTIVE DATA Blood pressure 109/58, pulse 88, temperature 37.2 ??C (98.9 ??F), temperature source Oral, resp. rate 24, height 1.778 m (5' 10 ), weight 177 kg (391 lb 1.5 oz), SpO2 91%. LABS Lab Results Component Value Date WBC 13.23 (H) 07/11/2025 HGB 10.1 (L) 07/11/2025 HCT 32.1 (L) 07/11/2025 MCV 88 07/11/2025 PLT 270 07/11/2025 Lab Results Component Value Date CALCIUM 9.1 07/11/2025 BUN 20 07/11/2025 CREATININE 0.99 07/11/2025 BCR 20 07/11/2025 NA 141 07/11/2025 K 3.8 07/11/2025 CL 104 07/11/2025 CO2 27 07/11/2025 ANIONGAP 10 07/11/2025 aPTT Date Value Ref Range Status 07/08/2025 25 25 - 35 sec Final INR Date Value Ref Range Status 07/08/2025 1.2 (H) 0.9 - 1.1 Final Lab Results Component Value Date HGBA1C 7.5 (H) 07/09/2025 GLUCOSE 163 (H) 07/11/2025 ABG Lab Results Component Value Date [id number] 28 (H) 07/10/2025 LACTATE 1.7 (H) 07/10/2025 Lab Results Component Value Date PH 7.30 (L) 07/10/2025 PCO2 57 (H) 07/10/2025 PO2 80 (L) 07/10/2025 Q1VFXQUV 95 07/10/2025 BASEEXC 1.1 07/10/2025 HCTSYR 31.5 (L) 07/10/2025 KSYR 3.9 07/10/2025 CLSYR 103 07/10/2025 GLUSYR 206 (H) 07/10/2025 CAION 5.0 07/10/2025 LACTATE 1.7 (H) 07/10/2025 EKG Encounter Date: 07/08/25 ECG Adult Result Value EKG DIAGNOSIS CLASS Abnormal Ventricular Rate 79 Atrial Rate 79 [place] Interval 188 QRSD Interval 90 QT Interval 354 QTC Interval 405 P [place] 44 R [place] 17 T Wave [place] 27 Diagnosis Sinus rhythm with frequent premature ventricular complexes Diagnosis Low voltage QRS Diagnosis Cannot rule out Anterior infarct , age undetermined Diagnosis Diagnosis Diagnosis Confirmed by Octavio Walsh ([id number]) on 07/10/2025 11:49:20 AM *Note: Due to a large number of results and/or encounters for the requested time period, some results have not been displayed. A complete set of results can be found in Results Review. ECHO No echocardiogram results found for the past 12 months CXR: Physical Exam Airway Mallampati: II Mouth opening: normal TM distance: >3 FB Neck ROM: full Cardiovascular Rhythm: regular Rate: normal Dental (+) upper dentures, lower dentures Pulmonary (+) decreased breath sounds Comments: 40L 55% HFNC Neurological Oriented: normal to time, normal to place and normal to person Skin Musculoskeletal Extremities Other findings: Norepinepherine 0.04mcg/kg/min Vasopressin 0.03units/min Insulin drip Anesthesia Plan ASA 3 Plan was reviewed with: KING Anesthesia technique(s) discussed with the patient/family: general Anesthesia plan agreed upon was: general Anesthetic plan and risks discussed with patient. Use of blood products discussed with patient who consented to blood products. ROS Anesthesia: history of previous anesthesia and obstructive sleep apnea. Does not have a history of anesthetic complications. Anesthesia ROS additional comments: Had nausea after last GA Cardiovascular: hyperlipidemia. hypertension: Exercise tolerance is walks [...] type 2.poorly controlled. [1] Allergies Allergen Reactions ??? Alprazolam Other - please document in the comment field ??? Bupropion Anaphylaxis ??? Aspirin Hives and Rash ??? Doxycycline Hives and Rash ??? Penicillins Hives and Rash ??? Diazepam Other - please document in the comment field Makes her mean [2] ??? acetaminophen, 1,000 mg, Intravenous, q6h ??? cefepime, 2 g, Intravenous, q8h ??? enoxaparin, 40 mg, Subcutaneous, BID ??? ipratropium-albuterol, 3 mL, Nebulization, q6h RT ??? lactated Ringer's, 1,000 mL, Intravenous, Once ??? lamoTRIgine, 50 mg, Nasogastric, BID ??? linezolid, 600 mg, Intravenous, q12h ??? methocarbamol, 760 mg, Intravenous, q8h ??? metroNIDAZOLE, 500 mg, Intravenous, q8h ??? mupirocin, 1 Application, Each Nostril, BID ??? senna-docusate, 1 tablet, Oral, Nightly ??? sodium chloride, 10 mL, Intravenous, q12h [3] PRN medications: albuterol, glucose OR dextrose 10 % OR dextrose 10 % OR glucagon (human recombinant), HYDROmorphone OR HYDROmorphone, insulin regular, ondansetron ODT OR ondansetron OR [DISCONTINUED] ondansetron, sodium chloride, sodium chloride [4] Past Surgical History: Procedure Laterality Date ??? CARPAL TUNNEL RELEASE 2 carpal tunnel surgeries - Aug ??? CHOLECYSTECTOMY 1994 ??? HAND SURGERY Left 2022 carpal tunnel ??? HYSTERECTOMY 2005 ??? TONSILECTOMY, ADENOIDECTOMY, BILATERAL MYRINGOTOMY AND TUBES 1991 [5] Social History Tobacco Use ??? Smoking status: Every Day Current packs/day: 1.00 Types: Cigarettes ??? Smokeless tobacco: Never Vaping Use ??? Vaping status: Never Used Substance Use Topics ??? Alcohol use: Not Currently ??? Drug use: Yes Types: Marijuana documented in this encounter Plan of Treatment Upcoming Encounters Date Type Department Care Team (Late st Contact Info) Description 08/20/2025 9:00 AM EDT Office Visit Medical Office Building Urology [address] [facility], [address] [place] [id number] Marj Matamoros APRN [address] [place] [address] 08/20/2025 10:30 AM EDT Office Visit [facility] General Surgery [address] [place] [address] Lilliana Morfin APRN [address] [place] [phone] documented as of this encounter Procedures Procedure Name Priority Date/Time Associated Diagnosis Comments PB ANESTHESIA PLACEHOLDER Routine 07/11/2025 2:23 PM EDT NH AN ELECTIVE ENDOTRACHEAL AIRWAY Routine 07/11/2025 2:23 PM EDT documented in this encounter Results * NH AN ELECTIVE ENDOTRACHEAL AIRWAY, PB ANESTHESIA PLACEHOLDER (07/11/2025 2:23 PM EDT) Narrative Luis Manuel Sharpe CRNA - 07/11/2025 2:23 PM EDT Luis Manuel Sharpe CRNA 07/11/2025 2:37 PM Airway Date/Time: 07/11/2025 2:23 PM Reason: elective Airway not difficult General Information and Staff Patient location during procedure: OR FURNACE STOCK INSPECTOR: Luis Manuel Sharpe CRNA Performed: KING Patient Condition Indications for airway management: anesthesia Patient position: sniffing Final Airway Details Final airway type: endotracheal airway Successful airway: ETT Cuffed: yes Successful intubation technique: direct laryngoscopy Adjuncts used in placement: intubating stylet Endotracheal tube insertion site: oral Blade: Codi Blade size: #3 ETT size (mm): 7.5 Cormack-Lehane Classification: grade I - full view of glottis Placement verified by: chest auscultation and capnometry Measured from: lips ETT to lips (cm): 21 Additional Comments Atraumatic. No change to dentition. us Eddie Fulton MD ANESTHESIA ORDERABLES Final Res ult documented in this encounter Visit Diagnoses Not on filedocumented in this encounter Administered Medications Inactive Administered Medications - up to 3 most recent administrations Medication Order MAR Action Action Date Dose Rate Site cefepime (Maxipime) injection Intravenous, As needed, Starting on Tomasa 07/11/25 at 1437, Until Tomasa 07/11/25 at 1538, Routine, Anesthesia Intraprocedure Given 07/11/2025 2:37 PM EDT 2 g fentaNYL (Sublimaze) injection Intravenous, As needed, Starting on Tomasa 07/11/25 at 1421, Until Tomasa 07/11/25 at 1538, Routine, Anesthesia Intraprocedure Given 07/11/2025 3:00 PM EDT 50 mcg Given 07/11/2025 2:21 PM EDT 50 mcg insulin regular in sodium chloride 0.9 % 1 UNIT/ML infusion (Standard Insulin Protocol) 0.5-30 Units/hr (0.5-30 mL/hr), Intravenous, Titrated, Starting on Tue07/08/25 at 2145, Until Tue07/11/25 at 1820, Routine Rate/Dose Verify 07/11/2025 6:00 PM EDT 0.64 Units/hr 0.64 mL/hr Rate/Dose Verify 07/11/2025 4:16 PM EDT 0.64 Units/hr 0.64 mL/hr Continued from OR 07/11/2025 4:00 PM EDT 0.64 Units/hr 0.6 4 mL/hr lidocaine PF (Xylocaine) 2 % injection Intravenous, As needed, Starting on Tue07/11/25 at 1421, Until Tue07/11/25 at 1538, Routine, Anesthesia Intraprocedure Given 07/11/2025 2:21 PM EDT 100 mg norepinephrine 8 mg/250 mL (0.032 mg/mL) [...] mcg/kg/min 3. 32 mL/hr ondansetron (Zofran) injection Intravenous, As needed, Starting on Tue07/11/25 at 1415, Until Tue07/11/25 at 1538, Routine, Anesthesia Intraprocedure Given 07/11/2025 2:15 PM EDT 4 mg phenylephrine in NS (Bebeto-Synephrine) 100 mcg/mL prefilled syringe Intravenous, As needed, Starting on Tue07/11/25 at 1426, Until Tomasa 07/11/25 at 1538, Routine, Anesthesia Intraprocedure Given 07/11/2025 2:26 PM EDT 200 mcg propofol (Diprivan) injection Intravenous, As needed, Starting on Tomasa 07/11/25 at 1421, Until Tomasa 07/11/25 at 1538, Routine, Anesthesia Intraprocedure Given 07/11/2025 2:21 PM EDT 200 mg rocuronium (ZeMuron) injection Intravenous, As needed, Starting on Tomasa 07/11/25 at 1421, Until Tomasa 07/11/25 at 1538, Routine, Anesthesia Intraprocedure Given 07/11/2025 2:21 PM EDT 50 mg sodium chloride 0.9 % infusion Intravenous, Continuous PRN, Starting on Tomasa 07/11/25 at 1412, Until Tomasa 07/11/25 at 1538, Routine New Bag 07/11/2025 2:12 PM EDT sugammadex (Bridion) 100 MG/ML injection Intravenous, As needed, Starting on Tomasa 07/11/25 at 1509, Until Tomasa 07/11/25 at 1538, Routine, Anesthesia Intraprocedure Given 07/11/2025 3:09 PM EDT 200 mg documented in this encounter Additional Health Concerns Assessment Noted Time PHQ-9 Depression Total Score: 16 023 9:36 AM EDT A fall risk assessment has been complete d for the patient 08/31/2023 9:38 AM EDT A Body Mass Index follow-up plan has been documented for the patient 07/19/2025 10:51 AM EDT documented as of this encounter Care Teams Chief Service Dispatcher Relationship Specialty Start Date End Date Yenny Dhillon APRN [address] [place] [address] PCP - General 07/22/23 documented as of this encounter
--- OUTSIDE RECORDS SUMMARY | 2025-07-14 14:05 | XMS_ITS | Encounter Summary ---
Author Organization Healthcare Address [address] [place] [address] Care Team Providers Care Instructional Design Consultant Name Role Phone Alejo Yenny Lit CASTRO Primary Care Provider [phone] Reason for Visit * Reason Comments Wound Check * Auth/Cert (Routine) Specialty Diagnoses / Procedures Referred By Bharati wiggins Referred To Contact Diagnoses Necrotizing fasciitis ([facility]/HCC) Necrotizing Fascitis Luanne Crawford MD [address] [address] Phone: tel: fax: [facility] Inpatient [address] [place] [address] Phone: tel: Referral ID Status Reason Start Date Expiration Date Visits Re quested Visits Authorized [id number] 1 1 Encounter Details Date Type Department Care Team (Late st Contact Info) Description 07/14/2025 2:05 PM EDT - 07/14/2025 4:05 PM EDT Surgery [facility] OPERATING ROOM [address] [place] [address] Anne Franco MD [address] [address] Debridement, partial closure of right [...] any time in the past 12 m [facility], were you homeless or living in a long-term (including now)? No 07/15/2025 [facility] Utilities Answer Date Recorded In the [...] please call our General Surgery Clinic at [phone]. If there are questions or concerns after discharge from the hospital, call Radha Ugalde Nurse Coordinator between 7am-3pm at [phone]. If it is after hours, weekends, and holidays please call [phone] and ask for the resident software validation engineer for Emergency General Surgery. Medication requests should [...] Outcome: Met Intervention: Promote Activity and Functional Leroy Flowsheets Taken 07/18/20252319 by Inessa Almazan, RN [...] Flowsheets Taken 07/19/2025 0223 by Inessa Almazan, assisted sales representative Interventions: medication (see MAR) Taken 07/18/2025 [address] [...] Note Cristina Brown 50 y.o. female CSN: [id number] Admission: 07/08/2025 5:58 PM Primary Problem: Necrotizing fasciitis (CMS/HCC) Primary Home Teaching Grades 9 Thru 12 Teacher: Primary Caregiver: Self Assistance Available at Discharge: [...] Community Agency(s): Patient's Choice of Community Agency(s): [facility] Patient/Family Anticipated Services at Transition: Patient/Family Anticipated Services at Transition: rehabilitation services DME/Equipment Needed after Discharge: Equipment Currently Used at Home: none Equipment Needed After Discharge: walker, rollator Readmission Within the Last 30 Days: Readmission Within the Last 30 Days: unable to assess Medicare Documentation: N/A Follow-up: Keaton Patel MD [address] [facility] [address] [place] [address] [facility] ([facility]) [address] [place] [address] Go on 07/19/2025 Discharge Transportation: Transportation Anticipated: [...] arranged for this date at 1400 from [facility]. Annie Littlejohn * Raj Peres RN - 07/19/2025 9:44 AM EDT Images from the original note were not included. 1087 Oxycodone Oral Tablet, Immediate Release Brand Names: Oxaydo, Roxicodone What is this medicine? Oxycodone (nh-i-UBH-done) is an opioid pain reliever. It is used to treat moderate to severe pain. What should I tell my health care provider before I take this medicine? They need to know if you have any of these conditions: ? [place]'s disease ? Brain tumor or head injury [...] a special medication guide each time you sweet pickled fruit maker this medicine. ? Overdosage: Taking too much [...] should report to your doctor or health care coordinator as soon as possible: ? allergic [...] attention (report to your doctor or health care coordinator if they continue or are bothersome): ? constipation ? dry mouth ? itching ? nausea, vomiting ? upset stomach This list may not describe all possible side effects. Call your doctor for medical advice about side effects. You may report side effects to FDA at 9-252-SXO-0576. Where should I keep my medicine? This [...] location. To find a disposal location, visit [employer]/[facility]/[place]. If you cannot take unused medicine to [...] from the original note were not included. [id number] Naloxone Nasal [place] WHY is this medicine prescribed? Prescription and [...] pharmacist for the instructions or visit the legal research analyst's website to get the instructions. You should [...] or doctor for a copy of the legal research analyst's information for the patient. Are there OTHER [...] and out of their sight and reach. https://www.upandMust See [place].org Dispose of unneeded medications in a way [...] of all of the prescription and nonprescription (sixh-vdc-zsxqaqb) medicines, vitamins, minerals, and dietary supplements you [...] or pharmacist about specific clinical use. The [place] [employer] represents that the information provided hereunder was formulated with a reasonable standard of care, and in conformity with professional standards in the field. The [place] [employer]. makes no representations or warranties, express or implied, including, but not limited to, any implied warranty of merchantability and/or fitness for a particular purpose, with respect to such information and specifically disclaims all such warranties. Users are advised that decisions regarding drug therapy are complex medical decisions requiring the independent, informed decision of an appropriate health care coordinator, and the information is provided for informational purposes only. The entire monograph for a drug should be reviewed for a thorough understanding of the drug's actions, uses and side effects. The [place] [employer] does not endorse or recommend the use of any drug.The information is not a substitute for medical care. AHFS?? Patient Medication Information?. ?? Copyright, 2023. The [place] [employer]-System Pharmacists??, [address], [address], [place], [place]. All Rights Reserved. Duplication for commercial use must be authorized by [facility]. Selected Revisions: May 26, 2024. AHFS?? Patient [...] controlled substances: ? Drug Enforcement Agency (HARIS): http://www.deadiversion.Eachpaloj.gov/drug_disposal/takeback/index.htm ? National Association of Drug Diversion Investigators (NADDI): http://rxdrugdropbox.org/ ? [place] Office of Drug Control Policy: http://odcp.va.gov/Prescription+Drug+Drop+Box+Sites.htm Are there concerns about or ? ? [...] from the original note were not included. 98650 Insulin: How to Use and Where to [...] ?needles? or ?sharps.? ? Call your local [employer] company to ask about removing the sharps container. You can also check withthe [facility] for Safe Community Needle Disposal at www.safeneedledisposal.org or 855-387-7418. Storing your insulin ? Keep unopened insulin [...] cold. Last Reviewed Date: 2023 00:00:00 ?? 5314-0492 [employer]. All rights reserved. This information is not intended as a substitute for professional medical care. Always follow your healthcare professional's instructions. * [facility] - Raj Cardona RN - 07/19/2025 9:43 AM EDT Images from the original note were not included. [id number] Diet: Diabetes Food is an important tool [...] of Nutrition and Dietetics at www.eatright.org o [place] Diabetes Association at www.diabetes.org or 850-084-2083 o Association of Diabetes Care and Education Specialists at www.diabeteseducator.org/ Last Reviewed Date: 2024 00:00:00 ?? 6612-4045 [employer]. All rights reserved. This information is not intended as a substitute for professional medical care. Always follow your healthcare professional's instructions. * Gauri McgregorJANETH - Raj Cardona RN - 07/19/2025 9:43 AM EDT Images from the original note were not included. 81869 Diabetes: Understanding Carbohydrates, Fats, and Protein Food [...] foods. Last Reviewed Date: 2024 00:00:00 ?? 8178-6146 [employer]. All rights reserved. This information is not intended as a substitute for professional medical care. Always follow your healthcare professional's instructions. * Jodycynthia Jacky - Raj Cardona RN - 07/19/2025 9:43 AM EDT Images from the original note were not included. 68761 Discharge Instructions: Packing a Wound You have [...] chills. Last Reviewed Date: 2025 00:00:00 ?? 8385-4296 [employer]. All rights reserved. This information is not intended as a substitute for professional medical care. Always follow your healthcare professional's instructions. * [facility] - Raj Cardona RN - 07/19/2025 9:43 AM EDT Images from the original note were not included. 28269 Negative Pressure Wound Therapy Negative pressure wound [...] Last Reviewed Date: 2024 00:00:00 ?? [employer]. All rights reserved. This information is not intended as a substitute for professional medical care. Always follow your healthcare professional's instructions. * Gauri Rico - Raj Cardona RN - 07/19/2025 9:43 AM EDT Images from the original note were not included. 62138 Discharge Instructions: Changing Your Dressing You are [...] doctor tells you otherwise: ? Stitches or emagan. Once you no longer need to keep [...] doctor. Last Reviewed Date: 2025 00:00:00 ?? 2985-4771 [employer]. All rights reserved. This information is not intended as a substitute for professional medical care. Always follow your healthcare professional's instructions. * [facility] - Raj Cardona RN - 07/19/2025 9:42 AM EDT Images from the original note were not included. [id number] Abscess (Incision and Drainage) An abscess is [...] treatment. Last Reviewed Date: 2024 00:00:00 ?? 2268-3496 [employer]. All rights reserved. This information is not intended as a substitute for professional medical care. Always follow your healthcare professional's instructions. * [facility] - Raj Cardona RN - 07/19/2025 9:42 AM EDT Images from the original note were not included. 21118 Preventing a Surgical Site Infection A risk [...] of infection. ? Controlled body temperature. A xhcsa-jknn-zkzemi temperature during or after surgery prevents oxygen [...] and water or with an alcohol-based hand senior civil engineer before and after caring for you. Don?t [...] away. Last Reviewed Date: 2024 00:00:00 ?? 0504-5088 [employer]. All rights reserved. This information is not [...] to the condition itself. It comes from Nicaraguan and Latin words for a gnawing sore [...] questions. Last Reviewed Date: 2023 00:00:00 ?? 2026-4386 [employer]. All rights reserved. This information is not [...] MD PCP name and Address: Yenny Dhillon, MARINE INSURANCE CLAIM EXAMINER [address] [facility] / [place] [address] Referring provider name and address: Keaton Patel MD [address] [facility] [address] [place] [address] Chief Concern, Brief History of Present Illness, and Hospital Course Cristina Brown is a 50 y.o. female with PMH of DM, hidradenitis supparativa, current smoker (1.5ppd), hx of absent seizures, UTI, depression, anxiety, asthma, HLD, celiac disease, presenting to [facility] on 07/08/2025 as transfer with concern [...] stay, and so will be discharged to [facility]. Surgeries and Procedures Procedures performed in [...] Your Medications These medications were sent to [facility] [place], [place] - [address] [facility] [address] naloxone 4 mg/0.1 mL nasal spray Information [...] (CMS/HCC) Overview Addendum 07/12/2025 1:54 PM by Gabreil Segovia - Presented to with right medial [...] Improving, continue to monitor Septic shock ([facility]) Overview Addendum 07/12/2025 1:55 PM [...] dressing in place, sutures removed on rounds. [facility] can re- apply negative pressurewound therapy: [...] please call our General Surgery Clinic at [phone]. If there are questions or concerns after discharge from the hospital, call Radha Ugalde, Nurse Coordinator between 7am-3pm at [phone]. If it is after hours, weekends, and holidays please call [phone] and ask for the resident software validation engineer for Emergency General Surgery. Medication requests should [...] normal. Judgment: Judgment normal. Discharge Disposition/Condition Disposition: [facility] Condition: Stable (s/sx potential problems absent or [...] (H) 07/17/2025 I reviewed bg tracing in [facility] glucose timeline 07/19/25 ASSESSMENT Hospital Course: Cristina Brown is a 50 y.o. female with hx of type 2 DM, morbid obesity, hidradenitis supparativa, current smoker (1.5 ppd), hx of absent seizures, UTI, depression, anxiety, asthma, HLD, celiac disease who initially came to [facility] on 07/08/2025 as transfer with concern [...] to establish care with endocrine provider in [place], [place]. --> Provided patient with address and number of clinic. [[facility] Endocrinology Clinic in the [facility] Physician Building]. -Tentative discharge recommendations: Likely [...] team via secure chat orpage us at [phone] during 7a-7p, Tuesday-Tuesday. For after hours please [...] AM EDT Associated Problem(s): Necrotizing fasciitis ([facility]) - 07/09: debridement of necrotizing [...] 7:08 AM EDT Associated Problem(s): Absence seizure ([facility]) - On Lamictal 50mg BID at [...] diagnosed JOSEP who presented to [facility] with leukocytosis and exam findings [...] eval PT/OT eval pending DM (diabetes mellitus) (CMS/[facility]) Present on Admission: Yes - Patient [...] the brett pad. After discussion with chief software validation engineer, decision was made to remove the [place] and place a rpt-fix-xjfvdflg with Kerlix, Polymem, ABD pads, and skin [...] Note Cristina Brown 50 y.o. female CSN: [id number] Admission: 07/08/2025 5:58 PM Primary Problem: Necrotizing fasciitis (CMS/HCC) Anticipated Discharge Date: 07/19/25 Has Discharge Plans Changed? Yes [facility] Acute Rehab Medicare Second Notice: Housing Circumstances: Low Income ( 101-300% Federal Poverty Guideline) Housing Circumstances Action Taken: Medically Ready for Discharge: Anticipated Tomorrow Additional Comments Per the MD pt is medically ready to d/c after she can tolerate her wv being changed without IV painmedication. SW talked with the pt and she is agreeable to go to [facility] however she still has a [...] the MD team. Pt will transfer to [facility] via shuttle on 07/19 if all needs are addressed. Annie Littlejohn * Progress Notes - Sherrill Villa, MARINE INSURANCE CLAIM EXAMINER - 07/18/2025 8:46 AM EDT Endocrine - [...] HLD, celiac disease who initially came to [facility] on 07/08/2025 as transfer with concern [...] to establish care with endocrine provider in [place], [place]. --> Provided patient with address and number of clinic. [[facility] Endocrinology Clinic in the [facility]ician [facility]]. -Tentative discharge recommendations: Likely [...] team via secure chat orpage us at [phone] during 7a-7p, Tuesday-Tuesday. For after hours please [...] night ipratropium-albuterol, 3 mL, Nebulization, q6h RT Joes, 1 packet, Oral, BID lamoTRIgine, 100 mg, [...] (severe) obesity due to excess calories ([facility]) Complicates all aspect of care [...] Plan Note - Jason Adnre MD - 07/18/2025 7:05 AM EDT Associated [...] Ongoing, Progressing Intervention: Promote Activity and Functional Leroy Flowsheets (Taken 07/18/2025204) Activity Assistance Provided: assistance, [...] Ongoing, Progressing Intervention: Promote Activity and Functional Leroy Flowsheets Taken 07/16/2025 0635 by Yessenia Ramirez [...] (H) 07/15/2025 I reviewed bg tracing in [facility] glucose timeline 07/17/25 ASSESSMENT Hospital Course: Cristina Brown is a 50 y.o. female with hx of type 2 DM, morbid obesity, hidradenitis supparativa, current smoker (1.5 ppd), hx of absent seizures, UTI, depression, anxiety, asthma, HLD, celiac disease who initially came to [facility] on 07/08/2025 as transfer with concern [...] to establish care with endocrine provider in [place], [place]. --> Provided patient with address and number of clinic. [[facility] Endocrinology Clinic in the [facility] Physician [facility]]. -Tentative discharge recommendations: Likely [...] via secure chat or page us at [phone] during 7a-7p, Tuesday-Tuesday. For after hours please [...] care close to her sisters house in [place]. CM notified. * Assessment & Plan Note - Andre, Jason M, MD - 07/17/2025 10:21 AM EDT Associated Problem(s): Necrotizing fasciitis ([facility]/HCC) - 07/09: debridement of necrotizing fasciitis [...] pressures. * Assessment & Plan Note - Jaosn [...] admission Level of Mobility Ambulatory- community Mobility Leroy Independent gait without device History of Falls [...] motivated and engaged throughout Visitors Present None Dredge Runner (if applicable) OBJECTIVE PAIN Rates pain at [...] needed areas of treatment space Level of Leroy Interventions: Feeding Independent Edge of bed Patient [...] Level of Assistance: Moderate assistance Adaptive Equipment: Right Of Way Maintenance Supervisor, Sock aide Training and demonstration provided for use and functionality of sock aid, leg booker strap and transfill technician tool to support independence with LB dressing, [...] and prioritizing during ADL performance. Access Code: [email or web address] URL: [email or web address] Putting On Socks with a Sock Aid Putting On and Taking Off Pants Using a Right Of Way Maintenance Supervisor Using a Leg Inspector Watch Assembly Adaptive Equipment for Bathing & Showering Understanding Energy Conservation BED MOBILITY Level of Leroy Physical/Non- physical Assist Adaptive Equipment Utilized Supine to Sit Modified Leroy Bed rails TRANSFERS Level of Leroy Physical/Non- physical Assist Adaptive Equipment Utilized Sit [...] admission Level of Mobility Ambulatory- community Mobility Leroy Independent gait without device History of Falls [...] pt may be discharged from [facility]. Dredge Runner (if applicable) Not Applicable OBJECTIVE & INTERVENTIONS [...] pt's true mobility BED MOBILITY Level of Leroy Physical/Non- physical Assist Adaptive Equipment Utilized Rolling/ Turning Scooting/ Bridging Supine to Sit Modified Leroy Bed rails Sit to Supine Interventions TRANSFERS Level of Leroy Physical/Non- physical Assist Adaptive Equipment Utilized Sit to Stand Stand-by assist Supervision Rollator Stand to sit Stand-by assist Supervision Rollator Bed to Chair Toilet Transfer Shower Transfer Interventions BALANCE Postural Appearance Posture: Forward head, Rounded shoulders Level of Leroy Balance Support Interventions Static Sit Standby assist Feet supported Dynamic Sit Contact guard Feet supported Dynamic Sitting-Balance: Lateral weight shifts, Anterior/Posterior weight shifts Static Stand Contact guard Right upper extremity support, Left upper extremity support Standing in room prior to ambulation Dynamic Stand Contact guard Right upper extremity support, Left upper extremity support 3 bouts of approx 1 min each AMBULATION Level of Leroy Distance Adaptive Equipment Utilized Ambulation Contact guard [...] Ongoing, Progressing Intervention: Promote Activity and Functional Leroy Flowsheets Taken 07/16/2025 0635 by Yessenia Ramirez [...] encouraged Taken 07/14/2025 1800 by Josi Ann associate professor of biostatistics Review/Management: medications reviewed Intervention: Promote Injury-Free Environment Flowsheets (Taken 07/16/2025 1700 by Diego Munroe) Safety Promotion/Fall Prevention: safety round/check completed nonskid shoes/slippers when out of bed mobility aid in reach room organization consistent clutter-free environment maintained assistive device/personal items within reach Problem: Self-Care Deficit Goal: Improved Ability to Complete Activities of Daily Living Outcome: Ongoing, Progressing Intervention: Promote Activity and Functional Leroy Flowsheets Taken 07/16/2025 0635 by Yessenia Ramirez [...] promoted Taken 07/14/2025 1800 by Josi Ann certified medical records coder/Support System Care: support provided Goal: Optimal Functional [...] sleep/rest pattern promoted * Care Plan - Isah Colunga RN - 07/16/2025 6:13 PM EDT Problem: Adult Inpatient Plan of Care Goal: Plan of Care Review 07/16/20251809 by Isha Colunga RN Flowsheets (Taken 07/16/2025128 by Eulalia Estrada RN) Progress: improving Plan of Care Reviewed With: patient 07/16/2025 1808 by Isha Colunga RN Outcome: Ongoing, Progressing Flowsheets (Taken 07/16/2025 0129 by Eulalia Estraad RN) Progress: improving Plan [...] and Manage Fall Risk 07/16/2025 1810 by Isah Colunga RN Flowsheets (Taken 07/16/2025 1700 by [...] Ongoing, Progressing Intervention: Promote Activity and Functional Leroy Flowsheets (Taken 07/16/2025 012 by Eulalia Estrada [...] 3:01 PM EDT SW received call from Peanut Sorter offering assistance for d/c planning. Her Callback #[phone] * Progress Notes - Sherrill Villa APRN [...] (H) 07/14/2025 I reviewed bg tracing in [facility] glucose timeline 07/16/25 ASSESSMENT Hospital Course: Cristina Brown is a 50 y.o. female with hx of type 2 DM, morbid obesity, hidradenitis supparativa, current smoker (1.5 ppd), hx of absent seizures, UTI, depression, anxiety, asthma, HLD, celiac disease who initially came to [facility] on 07/08/2025 as transfer with concern [...] to establish care with endocrine provider in [place], [place]. --> Provided patient with address and number of clinic. [[facility] Endocrinology Clinic in the [facility] Physician [facility]]. -Tentative discharge recommendations: Likely [...] team via secure chat orpage us at [phone] during 7a-7p, Tuesday-Tuesday. For after hours please [...] 6:52 AM EDT Associated Problem(s): Necrotizing fasciitis ([facility]) - 07/09: debridement of necrotizing [...] night Postoperative pain Present on Admission: Unknown [facility] Non-Hospital Problems Carpal tunnel syndrome Dehydration [...] Ongoing, Progressing Intervention: Promote Activity and Functional Leroy Flowsheets (Taken 07/16/2025 012) Self-Care Promotion: independence [...] Ongoing, Progressing Intervention: Promote Activity and Functional Leroy Flowsheets Taken 07/15/2025 1745 by Denia Boo [...] provided Taken 07/14/2025 1800 by Josi Ann certified medical records coder/Support System Care: support provided Goal: Optimal Functional [...] Note Cristina Brown 50 y.o. female CSN: [id number] Room/Bed 123/123A Nutrition evaluation type: follow-up Reason for evaluation: Hospital course: 50 y o F transferred from [facility] with concern for necrotizing fasciitis; OR 07/08 for excisional debridement of RLE, groin, pubis, and abdominal wall of skin, subcutaneous tissue, and muscle fascia, 65w28yr. Septic shock secondary to NSTI. Intubated & [...] Estimated Needs: Kcal: 25-27 kcal/kg adj bw (0653-0242 kcal/d) Protein: 1.5-1.7 g/kg adj bw (143-162 [...] Note Cristina Brown 50 y.o. female CSN: [id number] Admission: 07/08/2025 5:58 PM Primary Problem: Necrotizing fasciitis (CMS/HCC) Senior Producer reviewed chart and spoke with patient to complete this Initial Case Management Assessment. PCP: Yenny Dhillon APRN Emergency Contact: Extended Emergency Contact Information Primary Emergency Contact: Yecenia Lake Mobile Relation: Sister Preferred language: Comoran Dredge Runner needed? No Secondary Emergency Contact: Arnoldo Raymond [address]: [address] [place] [address] Mobile Relation: Significant Other Preferred language: [place]an Dredge Runner needed? No Insurance: Primary Visit Coverage Payer Plan Sponsor Code Group Number Group Name [facility] MEDICAID [facility] MEDICAID [facility] Primary Visit Coverage Subscriber Subscriber ID Subscriber Name Subscriber N Subscriber Address [id number] CRISTNIA BROWN [id number] [place] [address] Patient information: Primary Caregiver: Self Accompanied by/Relationship: Arnoldo Coleelor- significant other Support System: Immediate family, Extended family, Friends Daily Living Activities: Functional Status: Minimum assistance Living Arrangements: Family, Friends Type of Residence: Private residence [address] [place] [address] Smoker in the Home?: Yes Current DME: Equipment Currently Used at Home: none Income Information: Income Source: Unemployed Income/Expense Information: Expenses exceed income Current Resources Utilized: Food [place] Housing Circumstances-Z Codes: Housing Circumstances (select all [...] Dialysis Services: N/A Living Will/Advance Directive/Power of Asset Availability Leader /Guardian: N/A Additional Comments: Pt gets her medications from [facility] in [place] * Consults - Anupama [...] HLD, celiac disease who initially came to [facility] on 07/08/2025 as transfer with concern [...] after discharge close to her home at [place]. She agrees to call and make appointment [...] Endocrinology referral - patient requested to see optoelectronics engineer in [place], [place]. Provided patient with address and number of clinic. [[facility] Endocrinology Clinic in the [facility] Physician Building]. Patient has been on insulin while hospitalized, but utilizing metformin at home with good compliance. Diabetes care complicated by celiac diagnosis - placed nutrition consult to help patient navigate gluten free and diabetes diet. * Assessment & Plan Note - Jason Andre MD - 07/15/2025 7:15 AM EDT Associated Problem(s): Necrotizing fasciitis ([facility]) - 07/09: debridement of necrotizing [...] (severe) obesity due to excess calories ([facility]/HCC) Complicates all aspect of care * Assessment & Plan Note - Jason Andre MD - 07/15/2025 7:15 AM EDT Associated Problem(s): Urge incontinence Patient currently with a montalvo catheter. Remove when able. * Assessment & Plan Note - Jason Andre MD - 07/15/2025 7:15 AM EDT Associated Problem(s): Absence seizure ([facility]) - On Lamictal 50mg BID at [...] 7:15 AM EDT Associated Problem(s): Septic shock ([facility]) Septic shock secondary to necrotizing [...] night Postoperative pain Present on Admission: Unknown [facility] Non-Hospital Problems Carpal tunnel syndrome Dehydration [...] Ongoing, Progressing Intervention: Promote Activity and Functional Leroy Flowsheets Taken 07/14/2025 2311 by Rita Alejandro, [...] Ongoing, Progressing Intervention: Promote Activity and Functional Leroy Flowsheets (Taken 07/14/2025 1800) Activity Assistance Provided: [...] PM EDT Operative Note Date: 07/14/25 Location: [place] Name: Cristina Brown, : 1975, Diagnoses: Pre-op Diagnosis Necrotizing fasciitis (CMS/HCC) Post-op Diagnosis Necrotizing fasciitis (CMS/HCC) Procedure(s): Wound irrigation Partial wound closure, total closed 30 cm length Attending Surgeon(s): * Anne Franco - Primary Felled Seam Operator Chainstitch(s): * Janell Cross MD - Resident - [...] (mL) 30 mL 07/14/25 1625 [REMOVED] NG/OG [place] [facility] mouth (Removed) Placement Verification [...] (mL) 49 mL 07/10/25 0000 [REMOVED] NG/OG [place] [facility] 14 Fr Left nostril (Removed) Placement [...] 7:31 AM EDT Associated Problem(s): Necrotizing fasciitis ([facility]) - 07/09: debridement of necrotizing [...] (severe) obesity due to excess calories ([facility]) Complicates all aspect of care [...] 7:31 AM EDT Associated Problem(s): Postoperative pain [facility] * Progress Notes - Jason Andre [...] night Postoperative pain Present on Admission: Unknown [facility] Non-Hospital Problems Carpal tunnel syndrome Dehydration [...] Ongoing, Progressing Intervention: Promote Activity and Functional Leroy Flowsheets (Taken 07/13/20251826) Activity Assistance Provided: assistance, [...] Note Cristina Brown 50 y.o. female CSN: [id number] Admission: 07/08/2025 5:58 PM Primary Problem: Necrotizing fasciitis (CMS/HCC) Senior Producer reviewed chart and spoke with Cristina to complete this Initial Case Management Assessment. PCP: Yenny Dhillon APRN Emergency Contact: Extended Emergency Contact Information Primary Emergency Contact: Y[place]enia [place] Mobile Relation: Sister Preferred language: Comoran Dredge Runner needed? No Secondary Emergency Contact: Arnoldo Raymond [address]: [address] [place] [address] Mobile Relation: Significant Other Preferred language: Comoran Dredge Runner needed? No Insurance: Primary Visit Coverage Payer Plan Sponsor Code Group Number Group Name [facility] MEDICAID [facility] MEDICAID [facility] Primary Visit Coverage Subscriber Subscriber ID Subscriber Name Subscriber SSN Subscriber Address [id number] CRISTINA BROWN R [id number] [place] [address] Patient information: Primary Caregiver: Self Accompanied by/Relationship: Arnoldo Raymond- significant other Support System: Immediate family Daily Living Activities: Functional Status: Independent Living Arrangements: Spouse/Significant other Type of Residence: Private residence [address] [place] [address] Current DME: Equipment Currently Used at Home: none Income Information: Housing Circumstances-Z Codes: Patient Referred to: Anticipated Discharge Date: unknown Patient's Discharge Goal: Referrals sent for Acute Rehab Assistance Available at Discharge: Arnoldo Raymond Discharge Transport: Arnoldo Raymond Follow Up Transport: Anroldo raymond Home Health / Home Infusion / Outpatient Dialysis Services: none Living Will/Advance Directive/Power of Asset Availability Leader /Guardian: Additional Comments: CM discussed acute rehab placement with Cristina and Arnoldo Raymond. Their first choice is [facility] in [place], [place]. CM sent referrals in [facility]. Cristina will continue inpatient management for necrotizing [...] Morbid (severe) obesity due to excess calories (CMS/[facility]) Complicates all aspect of care [...] 12:36 PM EDT Associated Problem(s): Septic shock ([facility]/HCC) Septic shock secondary to necrotizing fascitis. [...] 07/08/2025 for work-up of Necrotizing fasciitis ([facility]). Problem List Active Hospital Problems Diagnosis Date Noted Postoperative pain 07/13/2025 JOSEP (obstructive sleep apnea) 07/11/2025 HLD (hyperlipidemia) 07/10/2025 Acute respiratory failure 07/09/2025 Septic shock ([facility]) 07/09/2025 Absence seizure ([facility]) 07/09/2025 DM (diabetes mellitus) ([facility]) 07/08/2025 Hidradenitis 07/08/2025 HTN (hypertension), benign 08/31/2023 Urge incontinence 08/31/2023 Smoker 06/09/2023 Depression 06/09/2023 Morbid (severe) obesity due to excess calories ([facility]) 02/15/2022 Chronic obstructive pulmonary disease, unspecified ([facility]) 01/09/2022 Necrotizing fasciitis ([facility]) 07/08/2025 Procedures 07/11/2025 Procedure(s): APPLICATION OR REPLACEMENT, WOUND VAC Past Medical History Patient has a past medical history of Anxiety, Asthma, Carpal tunnel syndrome, Depression, Diabetes([facility]), H/O absence seizures, Hidradenitis, High [...] evaluation. Participants in Care Family/Caregiver Present: No Dredge Runner: Not Applicable Presentation Oxygen Therapy: Supplemental oxygen [...] admission Level of Mobility: Ambulatory- community Mobility Leroy: Independent gait without device History of Falls: [...] Mobility Bed Mobility Exam: Scooting/Bridging Level of Leroy: Contact guard (seated scoot once sitting up on EOB and able to wiggle back into recliner chair) Bed Mobility Exam: Supine to Sit Level of Leroy: Moderate assist (50% patient's effort) Physical/Nonphysical Assist: Verbal Cues, Moderate cues, Additional assist utilized for safety, HOBelevated Assistive Device: Other (SLIDE MACHINE TENDER x2) Transfers Transfer Interventions: Patient performed sit < > stand x 3 reps total: Mod A from EOB, Min Afrom recliner chair, and CGA from BSC. Transfer Exam: Sit to stand Level of Leroy: Minimum assist (75% patient's effort) Physical/Nonphysical Assist: Verbal Cues, Minimal cues Assistive Device: Walker, rolling (andrea) Transfer Exam: Stand to Sit Level of Leroy: Minimum assist (75% patient's effort) Physical/Nonphysical Assist: Verbal Cues, Minimal cues Assistive Device: Walker, rolling (andrea) Transfer Exam: Bed to Chair/Chair to Bed Level of Leroy: Minimum assist (75% patient's effort) Physical/Nonphysical Assist: Verbal Cues, Minimal cues, Additional assist utilized for safety Type of Transfer: Sidesteps (bed > chair < > BSC) Assistive Device: Walker, rolling (andrea) Toilet Transfer Level of Leroy: Minimum assist (75% patient's effort) Physical/Nonphysical Assist: [...] allow bedside care to take placed (FOOD CHECKERS AND CASHIERS SUPERVISOR entering to take vitals; RN enforcing [...] for further toileting ADL needs. Standardized Assessments [facility] 6-Click Daily Activities Help from Other: Don/Doff Regular Lower Body Clothings: A lot Help From Other: Bathing: A lot Help From Other: Toileting: A lot Help From Other: Don/Doff Upper Body Clothings: Little Help From Other: Grooming: None Help From Other: Eating Meals: None [facility] 6 Click - Daily Activities [...] 07/08/2025 for work-up of Necrotizing fasciitis ([facility]). Problem List Active Hospital Problems Diagnosis Date Noted Postoperative pain 07/13/2025 JOSEP (obstructive sleep apnea) 07/11/2025 HLD (hyperlipidemia) 07/10/2025 Acute respiratory failure 07/09/2025 Septic shock ([facility]/HCC) 07/09/2025 Absence seizure ([facility]) 07/09/2025 DM (diabetes mellitus) ([facility]) 07/08/2025 Hidradenitis 07/08/2025 HTN (hypertension), benign 08/31/2023 Urge incontinence 08/31/2023 Smoker 06/09/2023 Depression 06/09/2023 Morbid (severe) obesity due to excess calories ([facility]) 02/15/2022 Chronic obstructive pulmonary disease, unspecified ([facility]) 01/09/2022 Necrotizing fasciitis ([facility]) 07/08/2025 Procedures 07/11/2025 Procedure(s): APPLICATION [...] move. Participants in Care Family/Caregiver Present: No Dredge Runner: Not Applicable Presentation Oxygen Therapy: Supplemental oxygen [...] admission Level of Mobility: Ambulatory- community Mobility Leroy: Independent gait without device History of Falls: [...] Mobility Bed Mobility Exam: Scooting/Bridging Level of Leroy: Contact guard (seated scoot once sitting up on EOB and able to wiggle back into recliner chair) Bed Mobility Exam: Supine to Sit Level of Leroy: Moderate assist (50% patient's effort) Physical/Nonphysical Assist: Verbal Cues, Moderate cues, Additional assist utilized for safety, HOBelevated Assistive Device: Other (SLIDE MACHINE TENDER x 2) Transfers Transfer Interventions: Patient performed sit < > stand x 3 reps total: Mod A from EOB, Min Afrom recliner chair, and CGA from BSC. Cues for safe hand placement during transitions using RW. Transfer Exam: Sit to stand Level of Leroy: Minimum assist (75% patient's effort) Physical/Nonphysical Assist: Verbal Cues, Minimal cues Assistive Device: Walker, rolling (andrea) Transfer Exam: Stand to Sit Level of Leroy: Minimum assist (75% patient's effort) Physical/Nonphysical Assist: Verbal Cues, Minimal cues Assistive Device: Walker, rolling (andrea) Transfer Exam: Bed to Chair/Chair to Bed Level of Leroy: Minimum assist (75% patient's effort) Physical/Nonphysical Assist: Verbal Cues, Minimal cues, Additional assist utilized for safety Type of Transfer: Sidesteps (bed > chair < > BSC) Assistive Device: Walker, rolling (andrea) Toilet Transfer Level of Leroy: Minimum assist (75% patient's effort) Physical/Nonphysical Assist: Set-up required, Verbal Cues Type of Transfer: Sidesteps, To bedside commode ([facility] as patient had difficulty getting on/off BSC [...] assistance Standardized Assessments Standardized Assessments Standardized Assessments: [facility] 6-Clicks Mobility Assessment [facility] 6[facility]Clicks Mobility Assessment Difficulty patient has [...] climbing 3-5 steps with a railing?: Unable [facility] 6-Clicks Mobility Assessment Total : 15 [...] anxiety, asthma, HLD, celiac disease, presenting to [facility] on 07/08/2025 as transfer with concern [...] stay, and so will be discharged to [facility]. * Assessment & Plan Note - [...] night Postoperative pain Present on Admission: Unknown [facility] Non-Hospital Problems Carpal tunnel syndrome Dehydration [...] Edited by: Jatin Miller MD at 07/13/2025 [id number] Landen Kidd Cosigned by Anne Franco MD [...] Airway None O2 Delivery Method: Nasal cannula AK SUP: 10 cm H20 Insp Time (sec): 1 sec FiO2 (%): 40 % S RR: 20 AK SUP: 10 cm H20 Output by Drain [...] Improving, continue to monitor Septic shock ([facility]) Yes Overview Addendum 07/12/2025 1:55 PM by Gabriel Segovia - Septic shock secondary to necrotizing fascitis. - Required Levophed and Vasopressin for circulatory support. - Currently off pressor support, continue to monitor pressures. Chronic obstructive pulmonary disease, unspecified ([facility]) (Chronic) Yes Overview Addendum 07/11/2025 9:23 [...] (severe) obesity due to excess calories ([facility]) (Chronic) Yes Overview Addendum 07/11/2025 9:31 AM by Gabriel Segovia - Alondras care. - Counseling when appropriate. Smoker (Chronic) Yes Overview Signed 07/09/2025 3:05 PM by Lidia Ellis MD - Patient smokes 0.5-1ppd. - Smoking cessation when appropriate. Urge incontinence (Chronic) Yes DM (diabetes mellitus) ([facility]) (Chronic) Yes Overview Addendum 07/09/2025 4:11 PM by Lidia Ellis MD - Patient hyperglycemic, up to 300s. - Insulin drip per protocol. Hidradenitis (Chronic) Yes Absence seizure ([facility]) (Chronic) Yes Overview Addendum 07/11/2025 9:20 [...] saw and evaluated the patient with the medical/BUILDING COORDINATOR/PA student. I discussed the case with the medical/BUILDING COORDINATOR/PA student and agree with the findings [...] Disposition: admit to inpatient unit Cosigned by Jreome Foster MD at 07/11/2025 5:03 PM EDT [...] PM EDT Operative Note Date: 07/11/25 Location: [place] Name: Cristina Brown, : 1975, Diagnoses: Pre-op Diagnosis Necrotizing fasciitis (CMS/HCC) Post-op Diagnosis Necrotizing fasciitis (CMS/HCC) Procedure(s): Right groin/perineum/thigh/abdominal wound exploration and washout Attending Surgeon(s): * Gerhard, Dorcas S - Primary Felled Seam Operator Chainstitch(s): * Janell Cross MD - Resident - [...] who is having surgery for Necrotizing fasciitis ([facility]). Patient had 2 prior debridements of [...] Note Cristina Brown 50 y.o. female CSN: [id number] Room/Bed 133/133A Nutrition evaluation type: follow-up Reason for evaluation: Hospital course: 50 y o F transferred from OSH with concern for necrotizing fasciitis; OR 07/08 for excisional debridement of RLE, groin, pubis, and abdominal wall of skin, subcutaneous tissue, and muscle fascia, [id number]. Septic shock secondary to NSTI. Intubated & [...] Estimated Needs: Kcal: 25-27 kcal/kg adj bw (5230-7060 kcal/d) Protein: 1.5-1.7 g/kg adj bw (143-162 [...] -will monitor NPO duration -po per MD/ SALES PROFESSIONAL -when po diet appropriate, rec CC3, Gluten [...] Daily Progress Note 07/11/25 Kishanicholas Luz Kevin [facility] 50-year-old female with past [...] Vent Status (ETT, Trach Only): In use AK SUP: 5 cm H20 Insp Time (sec): 1.5 sec Vent Mode: PS FiO2 (%): 60 % S RR: 14 AK SUP: 5 cm H20 MAP (cm H2O): [...] PM EDT Operative Note Date: 07/10/25 Location: [place] Name: Cristina Brown, : 1975, Diagnoses: Pre-op Diagnosis Necrotizing fasciitis (CMS/HCC) Post-op Diagnosis Necrotizing fasciitis (CMS/HCC) Procedure(s): Right groin/perineum/thigh/abdominal wound exploration, debridement, and washout Attending Surgeon(s): * Dorcas Hennessy - Primary Felled Seam Operator Chainstitch(s): * Shelby Whittington MD - Resident - [...] 234 Estimated Blood Loss: Minimal Drains: NG/OG [place] [facility] 14 Fr Left nostril (Active) Placement [...] Findings: All viable tissue. Wound measuring approximately [id number]. Packed with 5 kerlix tied together. Indications: Cristina Brown is an 50 y.o. female who is having surgery for Necrotizing fasciitis ([facility]). Patient presented in septic shock [...] Vent Status (ETT, Trach Only): In use AK SUP: 5 cm H20 Insp Time (sec): 1.5 sec Vent Mode: PS FiO2 (%): 50 % S RR: 14 AK SUP: 5 cm H20 MAP (cm H2O): [...] Urge incontinence Yes DM (diabetes mellitus) ([facility]/HCC) Yes Overview Addendum 07/09/2025 4:11 PM by Lidia Ellis MD - Patient hyperglycemic, up to 300s. - Insulin drip per protocol. Hidradenitis Yes Absence seizure ([facility]) (Chronic) Yes Overview Addendum 07/10/2025 4:52 PM by Lidia Ellis MD On Lamictal 50mg BID. Acute respiratory failure Yes Overview Signed 07/09/2025 3:57 PM by Lidia Ellis MD - Patient presenting in septic shock due to RLE necrotizing fasciitis. - Requiring ventilator for respiratory support. Wean as tolerated. Septic shock ([facility]) Yes Overview Addendum 07/10/2025 4:53 [...] PGY1 Emergency General Surgery * Teleconsult - rBian Melchor MD - 07/09/2025 11:50 PM EDT 07/09/25 Cristina Brown Asked by RN to review and reorder restraints. Chart reviewed and patient visualized. Patient has continued need for restraints. Order renewed. Brian Melchor MD * Care Plan - Cheynane Briceño RN - 07/09/2025 10:49 PM EDT [...] Protection: absorbent pad utilized/changed positioning supports utilized [id number] areas padded [id number] areas padded Problem: Skin Injury Risk Increased [...] Note Cristina Brown 50 y.o. female CSN: [id number] Room/Bed 133/133A Nutrition evaluation type: assessment Reason for evaluation: provider consult Hospital course: 50 y o F transferred from OSH with concern for necrotizing fasciitis; OR 07/08 for excisional debridement of RLE, groin, pubis, and abdominal wall of skin, subcutaneous tissue, and muscle fascia, [id number]. Septic shock secondary to NSTI. Intubated & sedated. TF initiated 07/09. Past medical/ surgical history: Past Medical History[1], celiac disease Surgical History[2] Social history: Social History[3] Additional comments: 07/09: Pt intubated and sedated. Visitor sleeping. Vitals and Basic Assessment: BP: 89/50 Temp: 36.3 ??C (97.3 ??F) Invasive Ventilator Initiated (ETT/Trach Only): Yes Oxygen Therapy: Supplemental oxygen O2 Delivery Method: Endotracheal tube, Mechanical ventilator [place] Coma Scale Score: 10 Satnam/Cubbin Pressure Risk [...] oz) Estimated Needs: Kcal: 22-25 kcal/kg IBW (6671-4113 kcal/d) Protein: 2-2.5 g/kg IBW (136-171 g/d) [...] Asthma Carpal tunnel syndrome Depression Diabetes ([facility]) H/O absence seizures Hidradenitis High [...] decreased. Palpations: Abdomen is soft. Skin: Comments: [id number] open wound with no extension of cellulitis. [...] PEEP (cmH2O): 18 S VT: 450 mL AK SUP: 10 cm H20 Insp Time (sec): 0.8 sec Vent Mode: PS FiO2 (%): 50 % S RR: 22 S VT: 450 mL AK SUP: 10 cm H20 MAP (cm H2O): [...] Hospital Problems POA * (Principal) Necrotizing fasciitis ([facility]) Yes Overview Addendum 07/09/2025 4:04 PM [...] support. Wean as tolerated. Septic shock ([facility]) Yes Overview Signed 07/09/2025 3:58 PM by Lidia Ellis MD - Septic shock secondary to necrotizing fascitis. - Requiring Levophed for circulatory support. Wean as tolerated. Chronic obstructive pulmonary disease, unspecified ([facility]) Yes Overview Addendum 07/09/2025 4:10 PM [...] (severe) obesity due to excess calories ([facility]) Yes Overview Addendum 07/09/2025 4:07 PM by Lidia Ellis MD Complicates care. Smoker Yes Overview Signed 07/09/2025 3:05 PM by Lidia Ellis MD - Patient smokes 0.5-1ppd. - Smoking cessation when appropriate. Urge incontinence Yes DM (diabetes mellitus) ([facility]) Yes Overview Addendum 07/09/2025 4:11 [...] PM EDT Operative Note Date: 07/08/25 Location: [place] Name: Cristina Brown, : 1975, Diagnoses: Pre-op Diagnosis Necrotizing fasciitis (CMS/HCC) Post-op Diagnosis Necrotizing fasciitis (CMS/HCC) Procedure(s): Excisional debridement of right thigh, groin pubis and abdominal wall including skin, subcutaneous tissue and fascia measuring 65 x 20 x 2cm Attending Surgeon(s): * Luanne Crawford - Primary Felled Seam Operator Chainstitch(s): * Kirsty Fields MD - Resident - Assisting Anesthesia: [...] who is having surgery for Necrotizing fasciitis ([facility]). Patient presented as transfer from [facility] with right inner thigh wound which [...] 07/08/2025 9:01 PM EDT Date: 07/09/25 Location: [place] Name: Cristina Escobar Kevin, : 1975, Diagnoses: Pre-op Diagnosis Necrotizing fasciitis (CMS/HCC) Post-op Diagnosis Necrotizing fasciitis (CMS/HCC) Procedure(s): Excisional debridement of right lower extremity, groin, pubis, and abdominal wall of skin, subcutaneous tissue, and muscle fascia, 65x20 cm Attending Surgeon(s): * Luanne Crawford - Primary Felled Seam Operator Chainstitch(s): * Kristy Fields MD - Resident - [...] anxiety, asthma, HLD, celiac disease, presenting to [facility] on 07/08/2025 as transfer with [...] Resuscitation Marked and consented DM (diabetes mellitus) ([facility]) Present on Admission: Yes Hidradenitis Present on Admission: Yes Smoker Present on Admission: Yes Non-Hospital Problems Carpal tunnel syndrome Chronic obstructive pulmonary disease, unspecified ([facility]) Overview Signed 08/31/2023 9:36 AM by Janell Bueno Last Assessment & Plan: Condition: stable Reviewed trigger avoidance and reviewed proper use of inhalers and rescue medications. Reviewed concerning signs/symptoms and ER precautions. Follow up in: three months Dehydration Hidradenitis suppurativa History of hysterectomy HTN (hypertension), benign Depression Morbid (severe) obesity due to excess calories ([facility]) Overview Signed 08/31/2023 9:36 AM [...] mL IVPB (vial adapter required) 2 g [id number] Deepthi Garcia MD linezolid (Zyvox) injection 600 [...] postoperatively * ED Procedure Note - My [facility] MD - 07/08/2025 5:58 PM [...] ppd), asthma, HLD, celiac disease, presenting to [facility] on 07/08/2025 as transfer with concern [...] 4% (Hibiclens). Acknowledged MARGARETTE AMINA 07/08/251916 Void software validation engineer to OR Once Acknowledged MARGARETTE AMINA 07/08/251916 [...] None Disposition Admit Admitting/Attending Physician: LUANNE CRAWFORD [[id number]] Provider Care Team: [facility] EM[facility]GENCY GENERAL SURGERY ICU 1 [[id number]] [...] E [facility], [address] [place] [address] Deepthi Matamoros, [employer] CLAIM EXAMINER [address] [place] [address] 08/20/2025 10:30 AM EDT Office Visit [facility] General Surgery [address] [place] [address] Lilliana Morfin APRN [address] [place] [address] Scheduled Referrals Name Type Priority Associated Diagnoses Order Schedule Discharge Ambulatory referral to NON Endocrinology Outpatient Referral Routine Morbid (severe) obesity due to excess calories ([facility]) Type 2 diabetes mellitus with hyperglycemia, without long-term current use of insulin (CMS/[facility]) Celiac disease Expected: 07/15/2025 (Approximate), [...] 07/14/2025 2: 26 PM EDT Necrotizing fasciitis ([facility]) PEP THERAPY Routine 07/14/2025 1:09 PM EDT [...] UNSOLICITED RESULTS Routine 07/11/2025 9:57 AM EDT [facility], E/M 30-74 MINUTES Routine 07/11/2025 [...] ECG ADULT STAT 07/10/2025 8:42 AM EDT [facility], E/M 30-74 MINUTES Routine 07/10/2025 8:15 AM EDT Necrotizing fasciitis (CMS/HCC) Morbid (severe) obesity due to excess calories (CMS/HCC) Septic shock (CMS/[facility]) Acute respiratory failure with hypoxia [...] CO2 MONITORING Routine 07/09/2025 8:00 AM EDT [facility], E/M 30-74 MINUTES Routine 07/09/2025 7:15 AM EDT Necrotizing fasciitis (CMS/HCC) Morbid (severe) obesity due to excess calories (CMS/HCC) Septic shock (CMS/[facility]) Acute respiratory failure with hypoxia [...] PANEL, PLASMA STAT 07/08/2025 6:14 PM EDT [facility], E/M 30-74 MINUTES Routine 07/08/2025 [...] Comment 07/19/2025 5:32 PM EDT [facility] Home Economist Consumer Service ID Laura Baez 025 5:32 PM EDT [facility]ALTHCARE LAB Device ID [id number] 07/19/2025 5:32 PM EDT [facility]ARE [facility] Specimen Type POC Capillary 07/19/2025 5:32 PM EDT [facility] Blood Capillary blood specimen / Unknown 07/19/2025 12:27 PM EDT 07/19/2025 5:32 PM EDT us Anne Franco MD LAB POINT OF CARE TEST DOCKED DEVICE UNSOLICITED RESULTS Final Result [facility] [address] [place] [address] * Phosphorus (07/19/2025 4:28 AM EDT) Phosphorus, Plasma 3.6 2.5 - 4.5 mg/dL 07/19/2025 5:03 AM EDT [facility] Blood Venous blood specimen / Unknown Venipuncture / Unknown 07/19/2025 4:28 AM EDT 07/19/2025 4:35 AM EDT us Anne Franco MD LAB BLOOD ORDERABLES Sarah l Result Performing Organization Address [facility]/ZIP Co de Phone Number [facility] [address] [place] [address] * (ABNORMAL) Magnesium (07/19/2025 4:28 AM EDT) Pathologist [facility] Magnesium, Plasma 1.8(L) 1.9 - 2.4 mg/dL 07/19/2025 5:03 AM EDT [facility] Blood Venous blood specimen / Unknown Venipuncture / Unknown 07/19/2025 4:28 AM EDT 07/19/2025 4:35 AM EDT us Anne Franco MD LAB BLOOD ORDERABLES Sarah l Result Performing Organization Address [facility] Co de Phone Number [facility] [address] [place] [address] * (ABNORMAL) CBC W/O Differential (07/19/2025 4:28 AM EDT) [facility] WBC Count 18.39(H) 3.70 - 10.30 10*3/uL LAB HEMATOLOGY METHOD 07/19/2025 4:51 AM EDT [facility] RBC Count 3.50(L) 3.90 - 5.20 10*6/uL LAB HEMATOLOGY METHOD 07/19/2025 4:51 AM EDT [facility] HGB 9.6(L) 11.2 - 15.7 g/dL LAB HEMATOLOGY METHOD 07/19/2025 4:51 AM EDT [facility] HCT 30.7(L) 34.0 - 45.0 % LAB HEMATOLOGY METHOD 07/19/2025 4:51 AM EDT [facility] Platelet Count 627(H) 155 - 369 10*3/uL LAB HEMATOLOGY METHOD 07/19/2025 4:51 AM EDT [facility] MCV 88 79 - 98 fL LAB HEMATOLOGY METHOD 07/19/2025 4:51 AM EDT [facility] MCH 27.4 26.0 - 32.0 pg LAB HEMATOLOGY METHOD 07/19/2025 4:51 AM EDT [facility] MCHC 31.3 30.7 - 35.5 g/dL LAB HEMATOLOGY METHOD 07/19/2025 4:51 AM EDT [facility] RDW 18.2(H) 11.5 - 14.5 % LAB HEMATOLOGY METHOD 07/19/2025 4:51 AM EDT [facility] MPV 10.2 8.8 - 12.5 fL LAB HEMATOLOGY METHOD 07/19/2025 4:51 AM EDT [facility] nRBC 0.1(H) <=0.0 per 100 WBCs LAB HEMATOLOGY METHOD 07/19/2025 4:51 AM EDT [facility] Blood Venous blood specimen / Unknown Venipuncture / Unknown 07/19/2025 4:28 AM EDT 07/19/2025 4:36 AM EDT us Anne Franco MD LAB BLOOD ORDERABLES Sarah bennett Result [facility] [address] [place] [address] * (ABNORMAL) Basic metabolic panel (07/19/2025 4:28 AM EDT) Glucose, Plasma 153(H) 74 - 99 mg/dL 07/19/2025 5:03 AM EDT [facility] BUN, Plasma 14 7 - 21 mg/dL 07/19/2025 5:03 AM EDT [facility] Creatinine, Plasma 0.73 0.60 - 1.10 mg/dL 07/19/2025 5:03 AM EDT [facility] BUN/Creatinine Ratio 19 07/19/2025 5:03 AM EDT [facility] Sodium, Plasma 137 136 - 145 mmol/L 07/19/2025 5:03 AM EDT [facility] Potassium, Plasma 4.3 3.6 - 4.9 mmol/L 07/19/2025 5:03 AM EDT [facility] Chloride, Plasma 97 97 - 107 mmol/L 07/19/2025 5:03 AM EDT [facility] CO2, Plasma 28 22 - 29 mmol/L 07/19/2025 5:03 AM EDT [facility] Anion Gap 12 6 - 16 mmol/L 07/19/2025 5:03 AM EDT [facility] Total Calcium, Plasma 9.0 8.9 - 10.2 mg/dL 07/19/2025 5:03 AM EDT [facility] eGFRcr 101.0 mL/min/1.7 3m*2 07/19/2025 5:03 AM EDT [facility] Comment:Reported eGFRcr in m L/min/1.73m2 is based the CKD-EPI 2020 equation that does not use a race coefficient. Blood Venous blood specimen / Unknown Venipuncture / Unknown 07/19/2025 4:28 AM EDT 07/19/2025 4:35 AM EDT us Anne Franco MD LAB BLOOD ORDERABLES Sarah bennett Result [facility] [address] [place] [address] * (ABNORMAL) POCT glucose meter (07/18/2025 8:33 [...] Comment 07/18/2025 8:36 PM EDT [facility]ARE [facility] Home Economist Consumer Service ID Zach Martinez 8:36 PM EDT [facility]ALTH[facility]ARE LAB Device ID [id number] 07/18/2025 8:36 PM EDT [facility]ARE [facility] Specimen Type POC Capillary 07/18/2025 8:36 PM EDT [facility] Blood Capillary blood specimen / Unknown 07/18/2025 8:33 PM EDT 07/18/2025 8:36 PM EDT Anne Franco MD LAB POINT OF CARE TEST DOCKED DEVICE UNSOLICITED RESULTS Final Result Performing Organization Address [facility] de Phone Number HEALTHCARE LAB [address] [place] [address] * (ABNORMAL) POCT glucose meter (07/18/2025 6:07 PM EDT) [facility] POCT Glucose 222(H) 74 - 99 mg/dL [...] Comment 07/18/2025 6:08 PM EDT [facility]ALTHCARE [facility] Home Economist Consumer Service ID Monique Jacques 6:08 PM EDT [facility]ALTH[facility]ARE LAB Device ID [id number] 07/18/2025 6:08 PM EDT [facility] Specimen Type POC Capillary 07/18/2025 6:08 PM EDT [facility] Blood Capillary blood specimen / Unknown 07/18/2025 6:07 PM EDT 07/18/2025 6:08 PM EDT Anne Franco MD LAB POINT OF CARE TEST DOCKED DEVICE UNSOLICITED RESULTS Final Result Performing Organization Address City/[facility] Co de Phone Number [facility] [address] [place] [address] * (ABNORMAL) POCT glucose meter (07/18/2025 12:36 PM EDT) [facility] POCT Glucose 151(H) 74 - 99 [...] Comment 07/18/2025 12:38 PM EDT [facility]ARE [facility] Home Economist Consumer Service ID Laura Baez 025 12:38 PM EDT [facility]ARE [facility] Device ID [id number] 07/18/2025 12:38 PM EDT [facility] Specimen Type POC Capillary 07/18/2025 12:38 PM EDT [facility] Blood Capillary blood specimen / Unknown 07/18/2025 12:36 PM EDT 07/18/2025 12:38 PM EDT us Anne Franco MD LAB POINT OF CARE TEST DOCKED DEVICE UNSOLICITED RESULTS Final Result Performing Organization Address City/[facility] Co ga Phone Number HEALTHCARE LAB [address] [place] [address] * (ABNORMAL) POCT glucose meter (07/18/2025 8:39 [...] Comment 07/18/2025 8:41 AM EDT [facility]ARE [facility] Home Economist Consumer Service ID Laura Baez 025 8:41 AM EDT [facility]ARE LAB Device ID [id number] 07/18/2025 8:41 AM EDT [facility] Specimen Type POC Capillary 07/18/2025 8:41 AM EDT [facility] Blood Capillary blood specimen / Unknown 07/18/2025 8:39 AM EDT 07/18/2025 8:41 AM EDT us Anne Franco MD LAB POINT OF CARE TEST DOCKED DEVICE UNSOLICITED RESULTS Final Result [facility] [address] [place] [address] * (ABNORMAL) Basic metabolic panel (07/18/2025 6:03 AM EDT) Glucose, Plasma 163(H) 74 - 99 mg/dL 07/18/2025 6:45 AM EDT [facility] BUN, Plasma 11 7 - 21 mg/dL 07/18/2025 6:45 AM EDT [facility] Creatinine, Plasma 0.65 0.60 - 1.10 mg/dL 07/18/2025 6:45 AM EDT [facility] BUN/Creatinine Ratio 17 07/18/2025 6:45 AM EDT [facility] Sodium, Plasma 138 136 - 145 mmol/L 07/18/2025 6:45 AM EDT [facility] Potassium, Plasma 3.8 3.6 - 4.9 mmol/L 07/18/2025 6:45 AM EDT [facility] Chloride, Plasma 99 97 - 107 mmol/L 07/18/2025 6:45 AM EDT [facility] CO2, Plasma 29 22 - 29 mmol/L 07/18/2025 6:45 AM EDT [facility] Anion Gap 10 6 - 16 mmol/L 07/18/2025 6:45 AM EDT [facility] Total Calcium, Plasma 8.5(L) 8.9 - 10.2 mg/dL 07/18/2025 6:45 AM EDT [facility] eGFRcr 108.1 mL/min/1.7 3m*2 07/18/2025 6:45 AM EDT [facility] Comment:Reported eGFRcr in m L/min/1.73m2 is based the CKD-EPI 2020 equation that does not use a race coefficient. Blood Venous blood specimen / Unknown Venipuncture / Unknown 07/18/2025 6:03 AM EDT 07/18/2025 6:12 AM EDT us Anne Franco MD LAB BLOOD ORDERABLES Sarah bennett Result [facility] [address] [place] [address] * (ABNORMAL) CBC W/O Differential (07/18/2025 6:03 AM EDT) WBC Count 16.76(H) 3.70 - 10.30 10*3/uL LAB HEMATOLOGY METHOD 07/18/2025 6:25 AM EDT [facility] RBC Count 3.25(L) 3.90 - 5.20 10*6/uL LAB HEMATOLOGY METHOD 07/18/2025 6:25 AM EDT [facility] HGB 9.1(L) 11.2 - 15.7 g/dL LAB HEMATOLOGY METHOD 07/18/2025 6:25 AM EDT [facility] HCT 28.8(L) 34.0 - 45.0 % LAB HEMATOLOGY METHOD 07/18/2025 6:25 AM EDT [facility] Platelet Count 523(H) 155 - 369 10*3/uL LAB HEMATOLOGY METHOD 07/18/2025 6:25 AM EDT [facility] MCV 89 79 - 98 fL LAB HEMATOLOGY METHOD 07/18/2025 6:25 AM EDT [facility] MCH 28.0 26.0 - 32.0 pg LAB HEMATOLOGY METHOD 07/18/2025 6:25 AM EDT [facility] MCHC 31.6 30.7 - 35.5 g/dL LAB HEMATOLOGY METHOD 07/18/2025 6:25 AM EDT [facility] RDW 17.6(H) 11.5 - 14.5 % LAB HEMATOLOGY METHOD 07/18/2025 6:25 AM EDT [facility] MPV 10.3 8.8 - 12.5 fL LAB HEMATOLOGY METHOD 07/18/2025 6:25 AM EDT [facility] nRBC 0.0 <=0.0 per 100 WBCs LAB HEMATOLOGY METHOD 07/18/2025 6:25 AM EDT [facility] Blood Venous blood specimen / Unknown Venipuncture / Unknown 07/18/2025 6:03 AM EDT 07/18/2025 6:12 AM EDT us Anne Franco MD LAB BLOOD ORDERABLES Sarah l Result Performing Organization Address City/[facility]/ZIP Co de Phone Number [facility] [address] [place] [address] * (ABNORMAL) POCT glucose meter (07/17/2025 10:33 [...] Comment 07/17/2025 10:35 PM EDT [facility]ALTHCARE [facility] Home Economist Consumer Service ID Tha, 07/17/2025 10:35 PM EDT [facility]ALTHCARE LAB Device ID [id number] 07/17/2025 10:35 PM EDT [facility]ARE [facility] Specimen Type POC Capillary 07/17/2025 10:35 PM EDT [facility] Blood Capillary blood specimen / Unknown 07/17/2025 10:33 PM EDT 07/17/2025 10:35 PM EDT Anne Franco MD LAB POINT OF CARE TEST DOCKED DEVICE UNSOLICITED RESULTS Final Result Performing Organization Address City/[facility] Co de Phone Number [facility]ARE LAB [address] [place] [address] * PERIPHERAL IV (SMARTFORM LINK) (07/17/2025 5:14 [...] for testing. Comment 07/17/2025 5:12 PM EDT [facility] Home Economist Consumer Service ID Monique Jacques 5:12 PM EDT [facility] Device ID [id number] 07/17/2025 5:12 PM EDT [facility] Specimen Type POC Capillary 07/17/2025 5:12 PM EDT [facility] Blood Capillary blood specimen / Unknown 07/17/2025 5:10 PM EDT 07/17/2025 5:12 PM EDT us Anne Franco MD LAB POINT OF CARE TEST DOCKED DEVICE UNSOLICITED RESULTS Final Result Performing Organization Address City/State/[facility] Co de Phone Number [facility]ALTH[facility]ARE LAB [address] [place] [address] * (ABNORMAL) POCT glucose meter (07/17/2025 12:06 [...] Comment 07/17/2025 12:07 PM EDT [facility]ARE [facility] Home Economist Consumer Service ID Josi Ann 12:07 PM EDT [facility]ALTH[facility]ARE LAB Device ID [id number] 07/17/2025 12:07 PM EDT [facility]ARE [facility] Specimen Type POC Capillary 07/17/2025 12:07 PM EDT [facility] Blood Capillary blood specimen / Unknown 07/17/2025 12:06 PM EDT 07/17/2025 12:07 PM EDT us Anne Franco MD LAB POINT OF CARE TEST DOCKED DEVICE UNSOLICITED RESULTS Final Result [facility] [address] [place] [address] * [place] Extremity Limited MSK or Soft [...] Detected Not Detected 07/17/2025 12:11 PM EDT [facility] Swab Both anterior nares / Unknown Non-blood Collection / Unknown 07/17/2025 10:14 AM EDT 07/17/2025 10:33 AM EDT Narrative [facility] - 07/17/2025 12:11 PM EDT [...] MICROBIOLOGY - GENERAL ORDER LUANNE Final Result [facility] [address] [place] [address] * (ABNORMAL) POCT glucose meter (07/17/2025 9:35 [...] 07/17/2025 9:37 AM EDT [facility] Home Economist Consumer Service ID Josi Ann 9:37 AM EDT [facility] Device ID [id number] 07/17/2025 9:37 AM EDT [facility] Specimen Type POC Capillary 07/17/2025 9:37 AM EDT [facility] Blood Capillary blood specimen / Unknown 07/17/2025 9:35 AM EDT 07/17/2025 9:37 AM EDT us Anne Franco MD LAB POINT OF CARE TEST DOCKED DEVICE UNSOLICITED RESULTS Final Result [facility] [address] [place] [address] * (ABNORMAL) Basic metabolic panel (07/17/2025 5:20 AM EDT) Glucose, Plasma 140(H) 74 - 99 mg/dL 07/17/2025 5:56 AM EDT [facility] BUN, Plasma 8 7 - 21 mg/dL 07/17/2025 5:56 AM EDT [facility] Creatinine, Plasma 0.59(L) 0.60 - 1.10 mg/dL 07/17/2025 5:56 AM EDT [facility] BUN/Creatinine Ratio 14 07/17/2025 5:56 AM EDT [facility] Sodium, Plasma 139 136 - 145 mmol/L 07/17/2025 5:56 AM EDT [facility] Potassium, Plasma 3.8 3.6 - 4.9 mmol/L 07/17/2025 5:56 AM EDT [facility] Chloride, Plasma 97 97 - 107 mmol/L 07/17/2025 5:56 AM EDT [facility] CO2, Plasma 31(H) 22 - 29 mmol/L 07/17/2025 5:56 AM EDT [facility] Anion Gap 11 6 - 16 mmol/L 07/17/2025 5:56 AM EDT [facility] Total Calcium, Plasma 8.6(L) 8.9 - 10.2 mg/dL 07/17/2025 5:56 AM EDT [facility] eGFRcr 110.6 mL/min/1.7 3m*2 07/17/2025 5:56 AM EDT [facility] Comment:Reported eGFRcr in m L/min/1.73m2 is based the CKD-EPI 2020 equation that does not use a race coefficient. Blood Venous blood specimen / Unknown Venipuncture / Unknown 07/17/2025 5:20 AM EDT 07/17/2025 5:27 AM EDT us Anne Franco MD LAB BLOOD ORDERABLES Sarah l Result Performing Organization Address City/[facility]/ZIP Co de Phone Number [facility] [address] [place] [address] * Phosphorus, Plasma (07/17/2025 5:20 AM EDT) Phosphorus, Plasma 3.0 2.5 - 4.5 mg/dL 07/17/2025 5:56 AM EDT [facility] Blood Venous blood specimen / Unknown Venipuncture / Unknown 07/17/2025 5:20 AM EDT 07/17/2025 5:27 AM EDT us Anne Franco MD LAB BLOOD ORDERABLES Sarah l Result Performing Organization Address City/[facility]/ZIP Co de Phone Number [facility] [address] [place] [address] * (ABNORMAL) Magnesium, Plasma (07/17/2025 5:20 AM EDT) Magnesium, Plasma 1.8(L) 1.9 - 2.4 mg/dL 07/17/2025 5:56 AM EDT [facility] Blood Venous blood specimen / Unknown Venipuncture / Unknown 07/17/2025 5:20 AM EDT 07/17/2025 5:27 AM EDT us Anne Franco MD LAB BLOOD ORDERABLES Sarah l Result Performing Organization Address City/[facility]/ZIP Co de Phone Number [facility] [address] [place] [address] * (ABNORMAL) CBC W/O Differential (07/17/2025 5:20 AM EDT) WBC Count 22.29(H) 3.70 - 10.30 10*3/uL LAB HEMATOLOGY METHOD 07/17/2025 5:37 AM EDT [facility] RBC Count 3.36(L) 3.90 - 5.20 10*6/uL LAB HEMATOLOGY METHOD 07/17/2025 5:37 AM EDT [facility] HGB 9.2(L) 11.2 - 15.7 g/dL LAB HEMATOLOGY METHOD 07/17/2025 5:37 AM EDT [facility] HCT 29.4(L) 34.0 - 45.0 % LAB HEMATOLOGY METHOD 07/17/2025 5:37 AM EDT [facility] Platelet Count 484(H) 155 - 369 10*3/uL LAB HEMATOLOGY METHOD 07/17/2025 5:37 AM EDT [facility] MCV 88 79 - 98 fL LAB HEMATOLOGY METHOD 07/17/2025 5:37 AM EDT [facility] MCH 27.4 26.0 - 32.0 pg LAB HEMATOLOGY METHOD 07/17/2025 5:37 AM EDT [facility] MCHC 31.3 30.7 - 35.5 g/dL LAB HEMATOLOGY METHOD 07/17/2025 5:37 AM EDT [facility] RDW 17.3(H) 11.5 - 14.5 % LAB HEMATOLOGY METHOD 07/17/2025 5:37 AM EDT [facility] MPV 10.4 8.8 - 12.5 fL LAB HEMATOLOGY METHOD 07/17/2025 5:37 AM EDT [facility] nRBC 0.1(H) <=0.0 per 100 WBCs LAB HEMATOLOGY METHOD 07/17/2025 5:37 AM EDT [facility] Blood Venous blood specimen / Unknown Venipuncture / Unknown 07/17/2025 5:20 AM EDT 07/17/2025 5:27 AM EDT us Anne Franco MD LAB BLOOD ORDERABLES Sarah bennett Result [facility] [address] [place] [address] * (ABNORMAL) POCT glucose meter (07/16/2025 8:24 [...] 07/16/2025 8:26 PM EDT [facility] Home Economist Consumer Service ID Lacie Marcelo 07/16/20 8:26 PM EDT [facility]ALTH[facility]ARE [facility] Device ID [id number] 07/16/2025 8:26 PM EDT [facility] Specimen Type POC Capillary 07/16/2025 8:26 PM EDT [facility] Blood Capillary blood specimen / Unknown 07/16/2025 8:24 PM EDT 07/16/2025 8:26 PM EDT Anne Franco MD LAB POINT OF CARE TEST DOCKED DEVICE UNSOLICITED RESULTS Final Result [facility] [address] [place] [address] * (ABNORMAL) POCT glucose meter (07/16/2025 5:34 PM EDT) [facility] POCT Glucose 190(H) 74 - 99 [...] 07/16/2025 5:36 PM EDT [facility] Home Economist Consumer Service ID Diego Munroe 07/16/20 5:36 PM EDT [facility] Device ID [id number] 07/16/2025 5:36 PM EDT [facility] Specimen Type POC Capillary 07/16/2025 5:36 PM EDT [facility] Blood Capillary blood specimen / Unknown 07/16/2025 5:34 PM EDT 07/16/2025 5:36 PM EDT us Anne Franco MD LAB POINT OF CARE TEST DOCKED DEVICE UNSOLICITED RESULTS Final Result Performing Organization Address [facility] de Phone Number [facility]ARE [facility] [address] [place] [address] * (ABNORMAL) POCT glucose meter (07/16/2025 12:06 [...] 07/16/2025 12:08 PM EDT [facility] Home Economist Consumer Service ID Diego Munroe 07/16/20 12:08 PM EDT [facility]ALTH[facility]ARE [facility] Device ID [id number] 07/16/2025 12:08 PM EDT [facility] Specimen Type POC Capillary 07/16/2025 12:08 PM EDT [facility] Blood Capillary blood specimen / Unknown 07/16/2025 12:06 PM EDT 07/16/2025 12:08 PM EDT us Anne Franco MD LAB POINT OF CARE TEST DOCKED DEVICE UNSOLICITED RESULTS Final Result Performing Organization Address City/[facility] Co de Phone Number [facility] [address] [place] [address] * XR Chest 1 View (07/16/2025 11:25 [...] POCT glucose meter (07/16/2025 8:22 AM EDT) [facility] POCT Glucose 172(H) 74 - 99 [...] Comment 07/16/2025 8:24 AM EDT [facility] Home Economist Consumer Service ID Diego Munroe 07/16/20 8:24 AM EDT [facility]ALTH[facility]ARE LAB Device ID [id number] 07/16/2025 8:24 AM EDT [facility] Specimen Type POC Capillary 07/16/2025 8:24 AM EDT [facility] Blood Capillary blood specimen / Unknown 07/16/2025 8:22 AM EDT 07/16/2025 8:24 AM EDT Anne Franco MD LAB POINT OF CARE TEST DOCKED DEVICE UNSOLICITED RESULTS Final Result Performing Organization Address City/[facility]/ZIP Co de Phone Number [facility] [address] [place] [address] * Phosphorus (07/16/2025 5:25 AM EDT) [facility] Phosphorus, Plasma 2.8 2.5 - 4.5 mg/dL 07/16/2025 7:12 AM EDT [facility] Blood Venous blood specimen / Unknown Venipuncture / Unknown 07/16/2025 5:25 AM EDT 07/16/2025 5:33 AM EDT us Anne Franco MD LAB BLOOD ORDERABLES Sarah l Result [facility] [address] [place] [address] * (ABNORMAL) Magnesium (07/16/2025 5:25 AM EDT) Magnesium, Plasma 1.8(L) 1.9 - 2.4 mg/dL 07/16/2025 7:12 AM EDT [facility] Blood Venous blood specimen / Unknown Venipuncture / Unknown 07/16/2025 5:25 AM EDT 07/16/2025 5:33 AM EDT us Anne Franco MD LAB BLOOD ORDERABLES Sarah sabrina Result [facility] [address] [place] [address] * (ABNORMAL) Basic metabolic panel (07/16/2025 5:25 AM EDT) Pathologist [facility] Glucose, Plasma 149(H) 74 - 99 mg/dL 07/16/2025 6:01 AM EDT [facility] BUN, Plasma 9 7 - 21 mg/dL 07/16/2025 6:01 AM EDT [facility] Creatinine, Plasma 0.48(L) 0.60 - 1.10 mg/dL 07/16/2025 6:01 AM EDT [facility] BUN/Creatinine Ratio 19 07/16/2025 6:01 AM EDT [facility] Sodium, Plasma 140 136 - 145 mmol/L 07/16/2025 6:01 AM EDT [facility] Potassium, Plasma 3.4(L) 3.6 - 4.9 mmol/L 07/16/2025 6:01 AM EDT [facility] Chloride, Plasma 99 97 - 107 mmol/L 07/16/2025 6:01 AM EDT [facility] CO2, Plasma 31(H) 22 - 29 mmol/L 07/16/2025 6:01 AM EDT [facility] Anion Gap 10 6 - 16 mmol/L 07/16/2025 6:01 AM EDT [facility] Total Calcium, Plasma 8.6(L) 8.9 - 10.2 mg/dL 07/16/2025 6:01 AM EDT [facility] eGFRcr 116.3 mL/min/1.7 3m*2 07/16/2025 6:01 AM EDT [facility] Comment:Reported eGFRcr in m L/min/1.73m2 is based the CKD-EPI 2020 equation that does not use a race coefficient. Blood Venous blood specimen / Unknown Venipuncture / Unknown 07/16/2025 5:25 AM EDT 07/16/2025 5:33 AM EDT us Anne Franco MD LAB BLOOD ORDERABLES Sarah bennett Result [facility] [address] [place] [address] * (ABNORMAL) CBC W/O Differential (07/16/2025 5:25 AM EDT) WBC Count 22.22(H) 3.70 - 10.30 10*3/uL LAB HEMATOLOGY METHOD 07/16/2025 5:41 AM EDT [facility] RBC Count 3.30(L) 3.90 - 5.20 10*6/uL LAB HEMATOLOGY METHOD 07/16/2025 5:41 AM EDT [facility] HGB 8.9(L) 11.2 - 15.7 g/dL LAB HEMATOLOGY METHOD 07/16/2025 5:41 AM EDT [facility] HCT 28.9(L) 34.0 - 45.0 % LAB HEMATOLOGY METHOD 07/16/2025 5:41 AM EDT [facility] Platelet Count 376(H) 155 - 369 10*3/uL LAB HEMATOLOGY METHOD 07/16/2025 5:41 AM EDT [facility] MCV 88 79 - 98 fL LAB HEMATOLOGY METHOD 07/16/2025 5:41 AM EDT [facility] MCH 27.0 26.0 - 32.0 pg LAB HEMATOLOGY METHOD 07/16/2025 5:41 AM EDT [facility] MCHC 30.8 30.7 - 35.5 g/dL LAB HEMATOLOGY METHOD 07/16/2025 5:41 AM EDT [facility] RDW 17.2(H) 11.5 - 14.5 % LAB HEMATOLOGY METHOD 07/16/2025 5:41 AM EDT [facility] MPV 10.3 8.8 - 12.5 fL LAB HEMATOLOGY METHOD 07/16/2025 5:41 AM EDT [facility] nRBC 0.1(H) <=0.0 per 100 WBCs LAB HEMATOLOGY METHOD 07/16/2025 5:41 AM EDT [facility] Blood Venous blood specimen / Unknown Venipuncture / Unknown 07/16/2025 5:25 AM EDT 07/16/2025 5:33 AM EDT Anne Franco MD LAB BLOOD ORDERABLES Sarah l Result Performing Organization Address City/[facility]/ZIP Co de Phone Number [facility] [address] [place] [address] * (ABNORMAL) POCT glucose meter (07/15/2025 9:38 PM EDT) [facility] POCT Glucose 173(H) 74 - 99 mg/dL [...] Comment 07/15/2025 9:39 PM EDT [facility] [employer] Consumer Service ID Yessenia Ramirez 9:39 PM EDT [facility] Device ID [id number] 07/15/2025 9:39 PM EDT [facility] Specimen Type POC Capillary 07/15/2025 9:39 PM EDT [facility] Blood Capillary blood specimen / Unknown 07/15/2025 9:38 PM EDT 07/15/2025 9:39 PM EDT us Anne Franco MD LAB POINT OF CARE TEST DOCKED DEVICE UNSOLICITED RESULTS Final Result Performing Organization Address City/[facility]/ZIP Co de Phone Number [facility] [address] [place] [address] * (ABNORMAL) POCT glucose meter (07/15/2025 6:03 PM EDT) [facility] POCT Glucose 234(H) 74 - 99 [...] Comment 07/15/2025 6:04 PM EDT [facility] Home [employer] Consumer Service ID Venessa Amin 07/15/2025 6:04 PM EDT [facility] Device ID [id number] 07/15/2025 6:04 PM EDT [facility] Specimen Type POC Capillary 07/15/2025 6:04 PM EDT [facility] Blood Capillary blood specimen / Unknown 07/15/2025 6:03 PM EDT 07/15/2025 6:04 PM EDT Anne Franco MD LAB POINT OF CARE TEST DOCKED DEVICE UNSOLICITED RESULTS Final Result [facility] [address] [place] [address] * (ABNORMAL) POCT glucose meter (07/15/2025 12:38 PM EDT) [facility] POCT Glucose 153(H) 74 - 99 mg/dL 07/15/2025 12:40 PM EDT [facility] Comment:Accuracy of a [...] Comment 07/15/2025 12:40 PM EDT [facility] Home [employer]ist Consumer Service ID Venessa Amin 07/15/2025 12:40 PM EDT [facility] Device ID [id number] 07/15/2025 12:40 PM EDT [facility] Specimen Type POC Capillary 07/15/2025 12:40 PM EDT [facility] Blood Capillary blood specimen / Unknown 07/15/2025 12:38 PM EDT 07/15/2025 12:40 PM EDT Anne Franco MD LAB POINT OF CARE TEST DOCKED DEVICE UNSOLICITED RESULTS Final Result Performing Organization Address [facility] de Phone Number [facility]ARE [facility] [address] [place] [address] * (ABNORMAL) POCT glucose meter (07/15/2025 8:38 AM EDT) [facility] POCT Glucose 132(H) 74 - 99 mg/dL [...] Comment 07/15/2025 8:39 AM EDT [facility] Home [employer]ist Consumer Service ID Venessa Amin 07/15/2025 8:39 AM EDT [facility] Device ID [id number] 07/15/2025 8:39 AM EDT [facility] Specimen Type POC Capillary 07/15/2025 8:39 AM EDT [facility] Blood Capillary blood specimen / Unknown 07/15/2025 8:38 AM EDT 07/15/2025 8:39 AM EDT Anne Franco MD LAB POINT OF CARE TEST DOCKED DEVICE UNSOLICITED RESULTS Final Result Performing Organization Address City/[facility] Co de Phone Number [facility] [address] [place] [address] * (ABNORMAL) Phosphorus (07/15/2025 4:50 AM EDT) Pathologist [facility] Phosphorus, Plasma 2.3(L) 2.5 - 4.5 mg/dL 07/15/2025 7:33 AM EDT [facility] Blood Venous blood specimen / Unknown Venipuncture / Unknown 07/15/2025 4:50 AM EDT 07/15/2025 4:59 AM EDT us Anne Franco MD LAB BLOOD ORDERABLES Sarah l Result [facility] [address] [place] [address] * Magnesium (07/15/2025 4:50 AM EDT) Magnesium, Plasma 1.9 1.9 - 2.4 mg/dL 07/15/2025 7:33 AM EDT [facility] Blood Venous blood specimen / Unknown Venipuncture / Unknown 07/15/2025 4:50 AM EDT 07/15/2025 4:59 AM EDT us Anne Franco MD LAB BLOOD ORDERABLES Sarah l Result Performing Organization Address [facility]/ZIP Co de Phone Number [facility] [address] [place] [address] * (ABNORMAL) Basic metabolic panel (07/15/2025 4:50 AM EDT) Glucose, Plasma 150(H) 74 - 99 mg/dL 07/15/2025 5:31 AM EDT [facility] BUN, Plasma 11 7 - 21 mg/dL 07/15/2025 5:31 AM EDT [facility] Creatinine, Plasma 0.54(L) 0.60 - 1.10 mg/dL 07/15/2025 5:31 AM EDT [facility] BUN/Creatinine Ratio 20 07/15/2025 5:31 AM EDT [facility] Sodium, Plasma 136 136 - 145 mmol/L 07/15/2025 5:31 AM EDT [facility] Potassium, Plasma 4.1 3.6 - 4.9 mmol/L 07/15/2025 5:31 AM EDT [facility] Chloride, Plasma 95(L) 97 - 107 mmol/L 07/15/2025 5:31 AM EDT [facility] CO2, Plasma 32(H) 22 - 29 mmol/L 07/15/2025 5:31 AM EDT [facility] Anion Gap 9 6 - 16 mmol/L 07/15/2025 5:31 AM EDT [facility] Total Calcium, Plasma 8.8(L) 8.9 - 10.2 mg/dL 07/15/2025 5:31 AM EDT [facility] eGFRcr 113.0 mL/min/1.7 3m*2 07/15/2025 5:31 AM EDT [facility] Comment:Reported eGFRcr in m L/min/1.73m2 is based the CKD-EPI 2020 equation that does not use a race coefficient. Blood Venous blood specimen / Unknown Venipuncture / Unknown 07/15/2025 4:50 AM EDT 07/15/2025 4:59 AM EDT us Anne Franco MD LAB BLOOD ORDERABLES Sarah sabrina Result [facility] [address] [place] [address] * (ABNORMAL) POCT glucose meter (07/14/2025 7:57 PM EDT) [facility] POCT Glucose 175(H) 74 - 99 mg/dL [...] Comment 07/14/2025 7:58 PM EDT [facility] Home [employer] Consumer Service ID Bernard Chirinos 07/14/20 7:58 PM EDT [facility] Device ID [id number] 07/14/2025 7:58 PM EDT [facility] Specimen Type POC Capillary 07/14/2025 7:58 PM EDT [facility] Blood Capillary blood specimen / Unknown 07/14/2025 7:57 PM EDT 07/14/2025 7:58 PM EDT us Anne Franco MD LAB POINT OF CARE TEST DOCKED DEVICE UNSOLICITED RESULTS Final Result Performing Organization Address [facility] Co de Phone Number [facility] [address] [place] [address] * (ABNORMAL) POCT glucose meter (07/14/2025 4:56 PM EDT) [facility] POCT Glucose 154(H) 74 - 99 [...] Comment 07/14/2025 4:58 PM EDT [facility] Home [employer]ist Consumer Service ID Riana Higgins 07/14/2025 4:58 PM EDT [facility] Device ID [id number] 07/14/2025 4:58 PM EDT [facility] Specimen Type POC Capillary 07/14/2025 4:58 PM EDT [facility] Blood Capillary blood specimen / Unknown 07/14/2025 4:56 PM EDT 07/14/2025 4:58 PM EDT Anne Franco MD LAB POINT OF CARE TEST DOCKED DEVICE UNSOLICITED RESULTS Final Result Performing Organization Address [facility] de Phone Number [facility] [address] [place] [address] * (ABNORMAL) POCT glucose meter (07/14/2025 12:38 PM EDT) [facility] POCT Glucose 143(H) 74 - 99 [...] 07/14/2025 12:39 PM EDT [facility] Home [employer]ist Consumer Service ID Laura Baez 025 12:39 PM EDT [facility] LAB Device ID [id number] 07/14/2025 12:39 PM EDT [facility] Specimen Type POC Capillary 07/14/2025 12:39 PM EDT [facility] Blood Capillary blood specimen / Unknown 07/14/2025 12:38 PM EDT 07/14/2025 12:39 PM EDT us Anne Franco MD LAB POINT OF CARE TEST DOCKED DEVICE UNSOLICITED RESULTS Final Result [facility] [address] [place] [address] * (ABNORMAL) Basic metabolic panel (07/14/2025 9:36 AM EDT) Glucose, Plasma 191(H) 74 - 99 mg/dL 07/14/2025 10:15 AM EDT [facility] BUN, Plasma 16 7 - 21 mg/dL 07/14/2025 10:15 AM EDT [facility] Creatinine, Plasma 0.61 0.60 - 1.10 mg/dL 07/14/2025 10:15 AM EDT [facility] BUN/Creatinine Ratio 26 07/14/2025 10:15 AM EDT [facility] Sodium, Plasma 138 136 - 145 mmol/L 07/14/2025 10:15 AM EDT [facility] Potassium, Plasma 3.2(L) 3.6 - 4.9 mmol/L 07/14/2025 10:15 AM EDT [facility] Chloride, Plasma 96(L) 97 - 107 mmol/L 07/14/2025 10:15 AM EDT [facility] CO2, Plasma 33(H) 22 - 29 mmol/L 07/14/2025 10:15 AM EDT [facility] Anion Gap 9 6 - 16 mmol/L 07/14/2025 10:15 AM EDT [facility] Total Calcium, Plasma 8.7(L) 8.9 - 10.2 mg/dL 07/14/2025 10:15 AM EDT [facility] eGFRcr 109.8 mL/min/1.7 3m*2 07/14/2025 10:15 AM EDT [facility] Comment:Reported eGFRcr in m L/min/1.73m2 is based the CKD-EPI 2020 equation that does not use a race coefficient. Blood Venous blood specimen / Unknown Venipuncture / Unknown 07/14/2025 9:36 AM EDT 07/14/2025 9:44 AM EDT us Anne Franco MD LAB BLOOD ORDERABLES Sarah l Result [facility] [address] [place] [address] * (ABNORMAL) Magnesium, Plasma (07/14/2025 9:36 AM EDT) Magnesium, Plasma 1.7(L) 1.9 - 2.4 mg/dL 07/14/2025 10:15 AM EDT [facility] Blood Venous blood specimen / Unknown Venipuncture / Unknown 07/14/2025 9:36 AM EDT 07/14/2025 9:44 AM EDT us Anne Franco MD LAB BLOOD ORDERABLES Sarah l Result Performing Organization Address [facility] Co de Phone Number [facility] [address] [place] [address] * (ABNORMAL) Phosphorus, Plasma (07/14/2025 9:36 AM EDT) Phosphorus, Plasma 2.2(L) 2.5 - 4.5 mg/dL 07/14/2025 10:15 AM EDT [facility] Blood Venous blood specimen / Unknown Venipuncture / Unknown 07/14/2025 9:36 AM EDT 07/14/2025 9:44 AM EDT us Anne Franco MD LAB BLOOD ORDERABLES Sarah l Result Performing Organization Address City/[facility]/ZIP Co de Phone Number [facility] [address] [place] [address] * (ABNORMAL) CBC W/O Differential (07/14/2025 9:36 AM EDT) WBC Count 21.20(H) 3.70 - 10.30 10*3/uL LAB HEMATOLOGY METHOD 07/14/2025 9:52 AM EDT [facility] RBC Count 3.37(L) 3.90 - 5.20 10*6/uL LAB HEMATOLOGY METHOD 07/14/2025 9:52 AM EDT [facility] HGB 9.2(L) 11.2 - 15.7 g/dL LAB HEMATOLOGY METHOD 07/14/2025 9:52 AM EDT [facility] HCT 29.4(L) 34.0 - 45.0 % LAB HEMATOLOGY METHOD 07/14/2025 9:52 AM EDT [facility] Platelet Count 314 155 - 369 10*3/uL LAB HEMATOLOGY METHOD 07/14/2025 9:52 AM EDT [facility] MCV 87 79 - 98 fL LAB HEMATOLOGY METHOD 07/14/2025 9:52 AM EDT [facility] MCH 27.3 26.0 - 32.0 pg LAB HEMATOLOGY METHOD 07/14/2025 9:52 AM EDT [facility] MCHC 31.3 30.7 - 35.5 g/dL LAB HEMATOLOGY METHOD 07/14/2025 9:52 AM EDT [facility] RDW 17.2(H) 11.5 - 14.5 % LAB HEMATOLOGY METHOD 07/14/2025 9:52 AM EDT [facility] MPV 10.2 8.8 - 12.5 fL LAB HEMATOLOGY METHOD 07/14/2025 9:52 AM EDT [facility] nRBC 0.1(H) <=0.0 per 100 WBCs LAB HEMATOLOGY METHOD 07/14/2025 9:52 AM EDT [facility] Blood Venous blood specimen / Unknown Venipuncture / Unknown 07/14/2025 9:36 AM EDT 07/14/2025 9:44 AM EDT us Anne Franco MD LAB BLOOD ORDERABLES Sarah bennett Result [facility] [address] [place] [address] * (ABNORMAL) POCT glucose meter (07/14/2025 8:39 AM EDT) Pathologist [facility] POCT Glucose 185(H) 74 - 99 mg/dL [...] Comment 07/14/2025 8:41 AM EDT [facility] Home [employer] Consumer Service ID Nestor Laura 025 8:41 AM EDT [facility] Device ID [id number] 07/14/2025 8:41 AM EDT [facility] Specimen Type POC Capillary 07/14/2025 8:41 AM EDT [facility] Blood Capillary blood specimen / Unknown 07/14/2025 8:39 AM EDT 07/14/2025 8:41 AM EDT Anne Franco MD LAB POINT OF CARE TEST DOCKED DEVICE UNSOLICITED RESULTS Final Result [facility] [address] [place] [address] * (ABNORMAL) POCT glucose meter (07/14/2025 6:18 AM EDT) [facility] POCT Glucose 178(H) 74 - 99 mg/dL [...] 07/14/2025 6:20 AM EDT [facility] Home [employer]ist Consumer Service ID Rita Alejandro 6:20 AM EDT [facility] Device ID [id number] 07/14/2025 6:20 AM EDT [facility] Specimen Type POC Capillary 07/14/2025 6:20 AM EDT [facility] Blood Capillary blood specimen / Unknown 07/14/2025 6:18 AM EDT 07/14/2025 6:20 AM EDT us Anne Franco MD LAB POINT OF CARE TEST DOCKED DEVICE UNSOLICITED RESULTS Final Result Performing Organization Address City/[facility] Co de Phone Number [facility] [address] [place] [address] * (ABNORMAL) POCT glucose meter (07/13/2025 9:18 [...] Comment 07/13/2025 9:19 PM EDT [facility] Home [employer]ist Consumer Service ID Yenny Tong 025 9:19 PM EDT [facility] Device ID [id number] 07/13/2025 9:19 PM EDT [facility] Specimen Type POC Capillary 07/13/2025 9:19 PM EDT [facility] Blood Capillary blood specimen / Unknown 07/13/2025 9:18 PM EDT 07/13/2025 9:19 PM EDT us Anne Franco MD LAB POINT OF CARE TEST DOCKED DEVICE UNSOLICITED RESULTS Final Result Performing Organization Address [facility] Co de Phone Number [facility] [address] [place] [address] * (ABNORMAL) POCT glucose meter (07/13/2025 6:01 [...] 07/13/2025 6:02 PM EDT [facility] Home Economist Consumer Service ID Laura Baez 025 6:02 PM EDT [facility] Device ID [id number] 07/13/2025 6:02 PM EDT [facility] Specimen Type POC Capillary 07/13/2025 6:02 PM EDT [facility] Blood Capillary blood specimen / Unknown 07/13/2025 6:01 PM EDT 07/13/2025 6:02 PM EDT Anne Franco MD LAB POINT OF CARE TEST DOCKED DEVICE UNSOLICITED RESULTS Final Result Performing Organization Address City/State/[facility] Co de Phone Number [facility] [address] [place] [address] * (ABNORMAL) POCT glucose meter (07/13/2025 12:12 PM EDT) [facility] POCT Glucose 139(H) 74 - 99 mg/dL [...] 07/13/2025 12:14 PM EDT [facility] Home Economist Consumer Service ID Laura Baez 025 12:14 PM EDT [facility] Device ID [id number] 07/13/2025 12:14 PM EDT [facility] Specimen Type POC Capillary 07/13/2025 12:14 PM EDT [facility] Blood Capillary blood specimen / Unknown 07/13/2025 12:12 PM EDT 07/13/2025 12:14 PM EDT us Anne Franco MD LAB POINT OF CARE TEST DOCKED DEVICE UNSOLICITED RESULTS Final Result Performing Organization Address City/[facility]/ZIP Co de Phone Number [facility] [address] [place] [address] * (ABNORMAL) Phosphorus (07/13/2025 10:21 AM EDT) Phosphorus, Plasma 2.2(L) 2.5 - 4.5 mg/dL 07/13/2025 11:23 AM EDT [facility] Blood Venous blood specimen / Unknown Venipuncture / Unknown 07/13/2025 10:21 AM EDT 07/13/2025 10:31 AM EDT us Luanne Crawford MD LAB BLOOD ORDERABLES Final Result Performing Organization Address [facility]/ZIP Co de Phone Number [facility] [address] [place] [address] * (ABNORMAL) Magnesium, Plasma (07/13/2025 10:21 AM EDT) Magnesium, Plasma 1.7(L) 1.9 - 2.4 mg/dL 07/13/2025 11:23 AM EDT [facility] Blood Venous blood specimen / Unknown Venipuncture / Unknown 07/13/2025 10:21 AM EDT 07/13/2025 10:31 AM EDT us Luanne Crawford MD LAB BLOOD ORDERABLES Final Result [facility] [address] [place] [address] * (ABNORMAL) Basic Metabolic Panel, Plasma (07/13/2025 10:21 AM EDT) Glucose, Plasma 135(H) 74 - 99 mg/dL 07/13/2025 11:23 AM EDT [facility] BUN, Plasma 22(H) 7 - 21 mg/dL 07/13/2025 11:23 AM EDT [facility] Creatinine, Plasma 0.62 0.60 - 1.10 mg/dL 07/13/2025 11:23 AM EDT [facility] BUN/Creatinine Ratio 35 07/13/2025 11:23 AM EDT [facility] Sodium, Plasma 138 136 - 145 mmol/L 07/13/2025 11:23 AM EDT [facility] Potassium, Plasma 3.7 3.6 - 4.9 mmol/L 07/13/2025 11:23 AM EDT [facility] Chloride, Plasma 95(L) 97 - 107 mmol/L 07/13/2025 11:23 AM EDT [facility] CO2, Plasma 30(H) 22 - 29 mmol/L 07/13/2025 11:23 AM EDT [facility] Anion Gap 13 6 - 16 mmol/L 07/13/2025 11:23 AM EDT [facility] Total Calcium, Plasma 9.0 8.9 - 10.2 mg/dL 07/13/2025 11:23 AM EDT [facility] eGFRcr 109.3 mL/min/1.7 3m*2 07/13/2025 11:23 AM EDT [facility] Comment:Reported eGFRcr in m L/min/1.73m2 is based the CKD-EPI 2020 equation that does not use a race coefficient. Blood Venous blood specimen / Unknown Venipuncture / Unknown 07/13/2025 10:21 AM EDT 07/13/2025 10:31 AM EDT us Luanne Crawford MD LAB BLOOD ORDERABLES Final Result [facility] [address] [place] [address] * (ABNORMAL) CBC W/O Differential (07/13/2025 10:21 AM EDT) WBC Count 19.56(H) 3.70 - 10.30 10*3/uL LAB HEMATOLOGY METHOD 07/13/2025 10:59 AM EDT [facility] RBC Count 3.67(L) 3.90 - 5.20 10*6/uL LAB HEMATOLOGY METHOD 07/13/2025 10:59 AM EDT [facility] HGB 10.2(L) 11.2 - 15.7 g/dL LAB HEMATOLOGY METHOD 07/13/2025 10:59 AM EDT [facility] HCT 32.3(L) 34.0 - 45.0 % LAB HEMATOLOGY METHOD 07/13/2025 10:59 AM EDT [facility] Platelet Count 296 155 - 369 10*3/uL LAB HEMATOLOGY METHOD 07/13/2025 10:59 AM EDT [facility] MCV 88 79 - 98 fL LAB HEMATOLOGY METHOD 07/13/2025 10:59 AM EDT [facility] MCH 27.8 26.0 - 32.0 pg LAB HEMATOLOGY METHOD 07/13/2025 10:59 AM EDT [facility] MCHC 31.6 30.7 - 35.5 g/dL LAB HEMATOLOGY METHOD 07/13/2025 10:59 AM EDT [facility] RDW 17.6(H) 11.5 - 14.5 % LAB HEMATOLOGY METHOD 07/13/2025 10:59 AM EDT [facility] MPV 10.3 8.8 - 12.5 fL LAB HEMATOLOGY METHOD 07/13/2025 10:59 AM EDT [facility] nRBC 0.0 <=0.0 per 100 WBCs LAB HEMATOLOGY METHOD 07/13/2025 10:59 AM EDT [facility] Blood Venous blood specimen / Unknown Venipuncture / Unknown 07/13/2025 10:21 AM EDT 07/13/2025 10:31 AM EDT us Luanne Crawford MD LAB BLOOD ORDERABLES Final Result [facility] [address] [place] [address] * (ABNORMAL) POCT glucose meter (07/13/2025 8:50 AM EDT) [facility] POCT Glucose 102(H) 74 - 99 [...] Comment 07/13/2025 8:53 AM EDT [facility] Home [employer] Consumer Service ID Laura Baez 025 8:53 AM EDT [facility] Device ID [id number] 07/13/2025 8:53 AM EDT [facility] Specimen Type POC Capillary 07/13/2025 8:53 AM EDT [facility] Blood Capillary blood specimen / Unknown 07/13/2025 8:50 AM EDT 07/13/2025 8:53 AM EDT us Anne Franco MD LAB POINT OF CARE TEST DOCKED DEVICE UNSOLICITED RESULTS Final Result [facility] [address] [place] [address] * (ABNORMAL) POCT glucose meter (07/13/2025 6:11 AM EDT) [facility] POCT Glucose 111(H) 74 - 99 mg/dL [...] Comment 07/13/2025 6:13 AM EDT [facility] Home [employer]ist Consumer Service ID Rita Alejandro 6:13 AM EDT [facility] Device ID [id number] 07/13/2025 6:13 AM EDT [facility] Specimen Type POC Capillary 07/13/2025 6:13 AM EDT [facility] Blood Capillary blood specimen / Unknown 07/13/2025 6:11 AM EDT 07/13/2025 6:13 AM EDT us Anne Franco MD LAB POINT OF CARE TEST DOCKED DEVICE UNSOLICITED RESULTS Final Result [facility] [address] [place] [address] * (ABNORMAL) POCT glucose meter (07/12/2025 9:28 PM EDT) [facility] POCT Glucose 107(H) 74 - 99 [...] Comment 07/12/2025 9:30 PM EDT [facility] Home [employer]ist Consumer Service ID Yenny Tong 025 9:30 PM EDT [facility] Device ID [id number] 07/12/2025 9:30 PM EDT [facility] Specimen Type POC Capillary 07/12/2025 9:30 PM EDT [facility] Blood Capillary blood specimen / Unknown 07/12/2025 9:28 PM EDT 07/12/2025 9:30 PM EDT Anne Franco MD LAB POINT OF CARE TEST DOCKED DEVICE UNSOLICITED RESULTS Final Result Performing Organization Address City/[facility]/ZIP Co de Phone Number [facility] [address] [place] [address] * (ABNORMAL) POCT glucose meter (07/12/2025 6:04 PM EDT) [facility] POCT Glucose 129(H) 74 - 99 [...] 07/12/2025 6:06 PM EDT [facility] Home [employer] Consumer Service ID Jeana Bear 07/12/2025 6:06 PM EDT [facility] Device ID [id number] 07/12/2025 6:06 PM EDT [facility] Specimen Type POC Capillary 07/12/2025 6:06 PM EDT [facility] Blood Capillary blood specimen / Unknown 07/12/2025 6:04 PM EDT 07/12/2025 6:06 PM EDT Anne Franco MD LAB POINT OF CARE TEST DOCKED DEVICE UNSOLICITED RESULTS Final Result [facility] [address] [place] [address] * PERIPHERAL IV ([employer] L[employer]) (07/12/2025 3:51 [...] POCT glucose meter (07/12/2025 11:55 AM EDT) [facility] POCT Glucose 119(H) 74 - 99 [...] Comment 07/12/2025 11:56 AM EDT [facility] Home [employer]ist Consumer Service ID Jeana Bear 07/12/2025 11:56 AM EDT [facility] Device ID [id number] 07/12/2025 11:56 AM EDT [facility] Specimen Type POC Capillary 07/12/2025 11:56 AM EDT [facility] Blood Capillary blood specimen / Unknown 07/12/2025 11:55 AM EDT 07/12/2025 11:56 AM EDT us Dorcas Hennessy MD LAB POINT OF CARE TE ST DOCKED DEVICE UNSOLICITED RESULTS Final Result [facility] [address] [place] [address] * XR Chest 1 View (07/12/2025 11:11 [...] Comment 07/12/2025 8:42 AM EDT [facility] Home Economist Consumer Service ID Jeana eBar 07/12/2025 8:42 AM EDT [facility] Device ID [id number] 07/12/2025 8:42 AM EDT [facility] Specimen Type POC Capillary 07/12/2025 8:42 AM EDT [facility] Blood Capillary blood specimen / Unknown 07/12/2025 8:41 AM EDT 07/12/2025 8:42 AM EDT us Dorcas Hennessy MD LAB POINT OF CARE TE ST DOCKED DEVICE UNSOLICITED RESULTS Final Result [facility] [address] [place] [address] * Phosphorus (07/12/2025 12:25 AM EDT) Phosphorus, Plasma 2.9 2.5 - 4.5 mg/dL 07/12/2025 1:22 AM EDT [facility] Blood Venous blood specimen / Unknown Venipuncture / Unknown 07/12/2025 12:25 AM EDT 07/12/2025 12:52 AM EDT us Luanne Crawford MD LAB BLOOD ORDERABLES Final Result [facility] [address] [place] [address] * Magnesium, Plasma (07/12/2025 12:25 AM EDT) Magnesium, Plasma 2.0 1.9 - 2.4 mg/dL 07/12/2025 1:22 AM EDT [facility] Blood Venous blood specimen / Unknown Venipuncture / Unknown 07/12/2025 12:25 AM EDT 07/12/2025 12:52 AM EDT Luanne Crawford MD LAB BLOOD ORDERABLES Final Result Performing Organization Address [facility]/ZIP Co de Phone Number [facility] [address] [place] [address] * (ABNORMAL) Basic Metabolic Panel, Plasma (07/12/2025 12:25 AM EDT) Glucose, Plasma 92 74 - 99 mg/dL 07/12/2025 1:22 AM EDT [facility] BUN, Plasma 18 7 - 21 mg/dL 07/12/2025 1:22 AM EDT [facility] Creatinine, Plasma 0.84 0.60 - 1.10 mg/dL 07/12/2025 1:22 AM EDT [facility] BUN/Creatinine Ratio 21 07/12/2025 1:22 AM EDT [facility] Sodium, Plasma 142 136 - 145 mmol/L 07/12/2025 1:22 AM EDT [facility] Potassium, Plasma 3.6 3.6 - 4.9 mmol/L 07/12/2025 1:22 AM EDT [facility] Chloride, Plasma 103 97 - 107 mmol/L 07/12/2025 1:22 AM EDT [facility] CO2, Plasma 31(H) 22 - 29 mmol/L 07/12/2025 1:22 AM EDT [facility] Anion Gap 8 6 - 16 mmol/L 07/12/2025 1:22 AM EDT [facility] Total Calcium, Plasma 8.8(L) 8.9 - 10.2 mg/dL 07/12/2025 1:22 AM EDT [facility] eGFRcr 85.3 mL/min/1.7 3m*2 07/12/2025 1:22 AM EDT [facility] Comment:Reported eGFRcr in m L/min/1.73m2 is based the CKD-EPI 2020 equation that does not use a race coefficient. Blood Venous blood specimen / Unknown Venipuncture / Unknown 07/12/2025 12:25 AM EDT 07/12/2025 12:52 AM EDT us Luanne Crawford MD LAB BLOOD ORDERABLES Final Result [facility] [address] [place] [address] * (ABNORMAL) CBC W/O Differential (07/12/2025 12:25 AM EDT) WBC Count 15.81(H) 3.70 - 10.30 10*3/uL LAB HEMATOLOGY METHOD 07/12/2025 1:05 AM EDT [facility] RBC Count 3.39(L) 3.90 - 5.20 10*6/uL LAB HEMATOLOGY METHOD 07/12/2025 1:05 AM EDT [facility] HGB 9.3(L) 11.2 - 15.7 g/dL LAB HEMATOLOGY METHOD 07/12/2025 1:05 AM EDT [facility] HCT 29.8(L) 34.0 - 45.0 % LAB HEMATOLOGY METHOD 07/12/2025 1:05 AM EDT [facility] Platelet Count 276 155 - 369 10*3/uL LAB HEMATOLOGY METHOD 07/12/2025 1:05 AM EDT [facility] MCV 88 79 - 98 fL LAB HEMATOLOGY METHOD 07/12/2025 1:05 AM EDT [facility] MCH 27.4 26.0 - 32.0 pg LAB HEMATOLOGY METHOD 07/12/2025 1:05 AM EDT [facility] MCHC 31.2 30.7 - 35.5 g/dL LAB HEMATOLOGY METHOD 07/12/2025 1:05 AM EDT [facility] RDW 18.0(H) 11.5 - 14.5 % LAB HEMATOLOGY METHOD 07/12/2025 1:05 AM EDT [facility] MPV 10.5 8.8 - 12.5 fL LAB HEMATOLOGY METHOD 07/12/2025 1:05 AM EDT [facility] nRBC 0.0 <=0.0 per 100 WBCs LAB HEMATOLOGY METHOD 07/12/2025 1:05 AM EDT [facility] Blood Venous blood specimen / Unknown Venipuncture / Unknown 07/12/2025 12:25 AM EDT 07/12/2025 12:55 AM EDT us Luanne Crawford MD LAB BLOOD ORDERABLES Final Result Performing Organization Address City/[facility] Co de Phone Number [facility] [address] [place] [address] * (ABNORMAL) POCT Glucose (if patient NPO, on TPN or continuous nutrition) (07/11/2025 8:45 PM EDT) POCT Glucose 119(A) 74 - 99 mg/dL [facility] Test Strip Lot Number \[id number]\ [facility] Test Strip Expiration 09/24/2026 [facility] Blood Venous blood specimen / Unknown 07/11/2025 8:45 PM EDT us Dorcas Hennessy MD POINT OF CARE TEST ENTER/EDIT OR DERABLES Final Result Performing Organization Address City/[facility]/ZIP Co de Phone Number [facility] [address] [place] [address] * (ABNORMAL) POCT Glucose - Before Meals [...] DERABLES Final Result [facility] [address] [place] [address] * (ABNORMAL) POCT glucose meter (07/11/2025 8:42 PM EDT) [facility] POCT Glucose 119(H) 74 - 99 [...] Comment 07/11/2025 8:43 PM EDT [facility] Home Economist Consumer Service ID Jf Cruz 07/11/2025 8:43 PM EDT [facility] Device ID [id number] 07/11/2025 8:43 PM EDT [facility] Specimen Type POC Capillary 07/11/2025 8:43 PM EDT [facility] Blood Capillary blood specimen / Unknown 07/11/2025 8:42 PM EDT 07/11/2025 8:43 PM EDT Dorcas Hennessy MD LAB POINT OF CARE TE ST DOCKED DEVICE UNSOLICITED RESULTS Final Result Performing Organization Address City/[facility]/ZIP Co de Phone Number [facility] [address] [place] [address] * (ABNORMAL) POCT glucose meter (07/11/2025 5:38 PM EDT) [facility] POCT Glucose 142(H) 74 - 99 [...] 07/11/2025 5:40 PM EDT [facility] Home [employer]ist Consumer Service ID Ayana Amato 07/11/2025 5:40 PM EDT [facility] Device ID [id number] 07/11/2025 5:40 PM EDT [facility] Specimen Type POC Capillary 07/11/2025 5:40 PM EDT [facility] Blood Capillary blood specimen / Unknown 07/11/2025 5:38 PM EDT 07/11/2025 5:40 PM EDT us Dorcas Hennessy MD LAB POINT OF CARE TE ST DOCKED DEVICE UNSOLICITED RESULTS Final Result Performing Organization Address City/[facility] Co de Phone Number [facility] [address] [place] [address] * (ABNORMAL) POCT glucose meter (07/11/2025 3:36 [...] 07/11/2025 3:38 PM EDT [facility] Home [employer]ist Consumer Service ID Radha Frias 07/11/20 3:38 PM EDT [facility] Device ID [id number] 07/11/2025 3:38 PM EDT [facility] Specimen Type POC Venous 07/11/2025 3:38 PM EDT [facility] Blood Venous blood specimen / Unknown 07/11/2025 3:36 PM EDT 07/11/2025 3:38 PM EDT us Dorcas Hennessy MD LAB POINT OF CARE TE ST DOCKED DEVICE UNSOLICITED RESULTS Final Result Performing Organization Address City/[facility] Co de Phone Number [facility] [address] [place] [address] * (ABNORMAL) POCT glucose meter (07/11/2025 1:52 [...] 07/11/2025 1:54 PM EDT [facility] Home Economist Consumer Service ID Ayana Amato 07/11/2025 1:54 PM EDT [facility] Device ID [id number] 07/11/2025 1:54 PM EDT [facility] Specimen Type POC Capillary 07/11/2025 1:54 PM EDT [facility] Blood Capillary blood specimen / Unknown 07/11/2025 1:52 PM EDT 07/11/2025 1:54 PM EDT Dorcas Hennessy MD LAB POINT OF CARE TE ST DOCKED DEVICE UNSOLICITED RESULTS Final Result [facility] [address] [place] [address] * (ABNORMAL) POCT glucose meter (07/11/2025 12:12 PM EDT) Pathologist [facility] POCT Glucose 154(H) 74 - [...] 07/11/2025 12:13 PM EDT [facility] Home Economist Consumer Service ID Ayana Amato 07/11/2025 12:13 PM EDT [facility] Device ID [id number] 07/11/2025 12:13 PM EDT [facility] Specimen Type POC Capillary 07/11/2025 12:13 PM EDT [facility] Blood Capillary blood specimen / Unknown 07/11/2025 12:12 PM EDT 07/11/2025 12:13 PM EDT Luanne Crawford MD LAB POINT OF CARE TEST DOCKED DEVICE UNSOLICITED RESULTS Final Result Performing Organization Address [facility] de Phone Number [facility] [address] [place] [address] * (ABNORMAL) POCT glucose meter (07/11/2025 9:57 AM EDT) [facility] POCT Glucose 135(H) 74 - 99 mg/dL [...] Comment 07/11/2025 9:59 AM EDT [facility] Home Economist Consumer Service ID Ayana Amato 07/11/2025 9:59 AM EDT [facility] Device ID [id number] 07/11/2025 9:59 AM EDT [facility] Specimen Type POC Capillary 07/11/2025 9:59 AM EDT [facility] Blood Capillary blood specimen / Unknown 07/11/2025 9:57 AM EDT 07/11/2025 9:59 AM EDT Luanne Crawford MD LAB POINT OF CARE TEST DOCKED DEVICE UNSOLICITED RESULTS Final Result Performing Organization Address City/[facility] de Phone Number [facility] [address] [place] [address] * [place] [facility], E/M 30-74 MINUTES (07/11/2025 8:41 [...] POCT glucose meter (07/11/2025 8:13 AM EDT) [facility] POCT Glucose 140(H) 74 - 99 mg/dL 07/11/2025 8:15 AM EDT [facility] Comment:Accuracy of a glucos e result [...] for testing. Comment 07/11/2025 8:15 AM EDT [facility] Home Economist Consumer Service ID Ayana Amato 07/11/2025 8:15 AM EDT [facility] Device ID [id number] 07/11/2025 8:15 AM EDT [facility] Specimen Type POC Capillary 07/11/2025 8:15 AM EDT [facility] Blood Capillary blood specimen / Unknown 07/11/2025 8:13 AM EDT 07/11/2025 8:15 AM EDT Luanne Crawford MD LAB POINT OF CARE TEST DOCKED DEVICE UNSOLICITED RESULTS Final Result Performing Organization Address City/[facility]/ZIP Co de Phone Number [facility] [address] [place] [address] * (ABNORMAL) POCT glucose meter (07/11/2025 6:03 [...] Comment 07/11/2025 6:05 AM EDT [facility] Home Economist Consumer Service ID Cheyanne Briceño 07/11/2025 6:05 AM EDT [facility] Device ID [id number] 07/11/2025 6:05 AM EDT [facility] Specimen Type POC Capillary 07/11/2025 6:05 AM EDT [facility] Blood Capillary blood specimen / Unknown 07/11/2025 6:03 AM EDT 07/11/2025 6:05 AM EDT Luanne Crawford MD LAB POINT OF CARE TEST DOCKED DEVICE UNSOLICITED RESULTS Final Result Performing Organization Address City/[facility]/ZIP Co de Phone Number [facility] [address] [place] [address] * (ABNORMAL) POCT glucose meter (07/11/2025 4:04 [...] Comment 07/11/2025 4:06 AM EDT [facility] Home Economist Consumer Service ID Cheyanne Briceño 07/11/2025 4:06 AM EDT [facility] Device ID [id number] 07/11/2025 4:06 AM EDT [facility] Specimen Type POC Capillary 07/11/2025 4:06 AM EDT [facility] Blood Capillary blood specimen / Unknown 07/11/2025 4:04 AM EDT 07/11/2025 4:06 AM EDT us Luanne Crawford MD LAB POINT OF CARE TEST DOCKED DEVICE UNSOLICITED RESULTS Final Result Performing Organization Address City/[facility]/ZIP Co de Phone Number [facility] [address] [place] [address] * (ABNORMAL) POCT glucose meter (07/11/2025 2:02 AM EDT) [facility] POCT Glucose 130(H) 74 - 99 mg/dL [...] Comment 07/11/2025 2:03 AM EDT [facility] Home Economist Consumer Service ID Cheyanne Briceño 07/11/2025 2:03 AM EDT [facility] Device ID [id number] 07/11/2025 2:03 AM EDT [facility] Specimen Type POC Capillary 07/11/2025 2:03 AM EDT [facility] Blood Capillary blood specimen / Unknown 07/11/2025 2:02 AM EDT 07/11/2025 2:03 AM EDT us Luanne Crawford MD LAB POINT OF CARE TEST DOCKED DEVICE UNSOLICITED RESULTS Final Result [facility] [address] [place] [address] * Phosphorus (07/11/2025 12:09 AM EDT) Phosphorus, Plasma 3.7 2.5 - 4.5 mg/dL 07/11/2025 12:54 AM EDT [facility] Blood Venous blood specimen / Unknown Venipuncture / Unknown 07/11/2025 12:09 AM EDT 07/11/2025 12:26 AM EDT Luanne Crawford MD LAB BLOOD ORDERABLES Final Result Performing Organization Address [facility]/ZIP Co de Phone Number [facility] [address] [place] [address] * (ABNORMAL) Magnesium, Plasma (07/11/2025 12:09 AM EDT) Magnesium, Plasma 1.8(L) 1.9 - 2.4 mg/dL 07/11/2025 12:54 AM EDT [facility] Blood Venous blood specimen / Unknown Venipuncture / Unknown 07/11/2025 12:09 AM EDT 07/11/2025 12:26 AM EDT Luanne Crawford MD LAB BLOOD ORDERABLES Final Result Performing Organization Address City/[facility] Co de Phone Number [facility] [address] [place] [address] * (ABNORMAL) Basic Metabolic Panel, Plasma (07/11/2025 12:09 AM EDT) Glucose, Plasma 163(H) 74 - 99 mg/dL 07/11/2025 12:54 AM EDT [facility] BUN, Plasma 20 7 - 21 mg/dL 07/11/2025 12:54 AM EDT [facility] Creatinine, Plasma 0.99 0.60 - 1.10 mg/dL 07/11/2025 12:54 AM EDT [facility] BUN/Creatinine Ratio 20 07/11/2025 12:54 AM EDT [facility] Sodium, Plasma 141 136 - 145 mmol/L 07/11/2025 12:54 AM EDT [facility] Potassium, Plasma 3.8 3.6 - 4.9 mmol/L 07/11/2025 12:54 AM EDT [facility] Chloride, Plasma 104 97 - 107 mmol/L 07/11/2025 12:54 AM EDT [facility] CO2, Plasma 27 22 - 29 mmol/L 07/11/2025 12:54 AM EDT [facility] Anion Gap 10 6 - 16 mmol/L 07/11/2025 12:54 AM EDT [facility] Total Calcium, Plasma 9.1 8.9 - 10.2 mg/dL 07/11/2025 12:54 AM EDT [facility] eGFRcr 70.0 mL/min/1.7 3m*2 07/11/2025 12:54 AM EDT [facility] Comment:Reported eGFRcr in m L/min/1.73m2 is based the CKD-EPI 2020 equation that does not use a race coefficient. Blood Venous blood specimen / Unknown Venipuncture / Unknown 07/11/2025 12:09 AM EDT 07/11/2025 12:26 AM EDT us Launne Crawford MD LAB BLOOD ORDERABLES Final Result [facility] [address] [place] [address] * (ABNORMAL) CBC W/O Differential (07/11/2025 12:09 AM EDT) WBC Count 13.23(H) 3.70 - 10.30 10*3/uL LAB HEMATOLOGY METHOD 07/11/2025 12:36 AM EDT [facility] RBC Count 3.65(L) 3.90 - 5.20 10*6/uL LAB HEMATOLOGY METHOD 07/11/2025 12:36 AM EDT [facility] HGB 10.1(L) 11.2 - 15.7 g/dL LAB HEMATOLOGY METHOD 07/11/2025 12:36 AM EDT [facility] HCT 32.1(L) 34.0 - 45.0 % LAB HEMATOLOGY METHOD 07/11/2025 12:36 AM EDT [facility] Platelet Count 270 155 - 369 10*3/uL LAB HEMATOLOGY METHOD 07/11/2025 12:36 AM EDT [facility] MCV 88 79 - 98 fL LAB HEMATOLOGY METHOD 07/11/2025 12:36 AM EDT [facility] MCH 27.7 26.0 - 32.0 pg LAB HEMATOLOGY METHOD 07/11/2025 12:36 AM EDT [facility] MCHC 31.5 30.7 - 35.5 g/dL LAB HEMATOLOGY METHOD 07/11/2025 12:36 AM EDT [facility] RDW 17.9(H) 11.5 - 14.5 % LAB HEMATOLOGY METHOD 07/11/2025 12:36 AM EDT [facility] MPV 10.7 8.8 - 12.5 fL LAB HEMATOLOGY METHOD 07/11/2025 12:36 AM EDT [facility] nRBC 0.0 <=0.0 per 100 WBCs LAB HEMATOLOGY METHOD 07/11/2025 12:36 AM EDT [facility] Blood Venous blood specimen / Unknown Venipuncture / Unknown 07/11/2025 12:09 AM EDT 07/11/2025 12:29 AM EDT us Luanne Crawford MD LAB BLOOD ORDERABLES Final Result [facility] [address] [place] [address] * (ABNORMAL) POCT glucose meter (07/11/2025 12:04 AM EDT) Pathologist [facility] POCT Glucose 156(H) 74 - 99 mg/dL [...] Comment 07/11/2025 12:06 AM EDT [facility] Home Economist Consumer Service ID Cheyanne Briceño 07/11/2025 12:06 AM EDT [facility] Device ID [id number] 07/11/2025 12:06 AM EDT [facility] Specimen Type POC Capillary 07/11/2025 12:06 AM EDT [facility] Blood Capillary blood specimen / Unknown 07/11/2025 12:04 AM EDT 07/11/2025 12:06 AM EDT Luanne Crawford MD LAB POINT OF CARE TEST DOCKED DEVICE UNSOLICITED RESULTS Final Result Performing Organization Address [facility] Co de Phone Number [facility] [address] [place] [address] * (ABNORMAL) POCT glucose meter (07/10/2025 10:02 PM EDT) [facility] POCT Glucose 202(H) 74 - 99 mg/dL [...] Comment 07/10/2025 10:03 PM EDT [facility] Home Economist Consumer Service ID Lidia Ugalde 07/10/2025 10:03 PM EDT [facility] Device ID [id number] 07/10/2025 10:03 PM EDT [facility] Specimen Type POC Capillary 07/10/2025 10:03 PM EDT [facility] Blood Capillary blood specimen / Unknown 07/10/2025 10:02 PM EDT 07/10/2025 10:03 PM EDT us Luanne Crawford MD LAB POINT OF CARE TEST DOCKED DEVICE UNSOLICITED RESULTS Final Result Performing Organization Address City/[facility] Co de Phone Number [facility] [address] [place] [address] * (ABNORMAL) Blood gas panel, arterial (07/10/2025 8:23 PM EDT) [facility] pH, Arterial 7.30(L) 7.35 - 7.45 LAB HEMATOLOGY METHOD 07/10/2025 8:40 PM EDT [facility] pCO2, Arterial 57(H) 35 - 48 mmHg LAB HEMATOLOGY METHOD 07/10/2025 8:40 PM EDT [facility] pO2, Arterial 80(L) 83 - 108 mmHg LAB HEMATOLOGY METHOD 07/10/2025 8:40 PM EDT [facility] SO2, Measured, Arterial 95 94 - 98 % LAB HEMATOLOGY METHOD 07/10/2025 8:40 PM EDT [facility] Base Excess, Arterial 1.1 -2.0 - 3.0 mmol/L LAB HEMATOLOGY METHOD 07/10/2025 8:40 PM EDT [facility] Bicarbonate, Calculated, Arterial 28(H) 22 - 26 mmol/L LAB HEMATOLOGY METHOD 07/10/2025 8:40 PM EDT [facility] Hematocrit, Whole Blood 31.5(L) 34.0 - 45.0 % LAB HEMATOLOGY METHOD 07/10/2025 8:40 PM EDT [facility] Sodium, Whole Blood 138 136 - 145 mmol/L LAB HEMATOLOGY METHOD 07/10/2025 8:40 PM EDT [facility] Potassium, Whole Blood 3.9 3.6 - 4.9 mmol/L LAB HEMATOLOGY METHOD 07/10/2025 8:40 PM EDT [facility] Chloride, Whole Blood 103 97 - 107 mmol/L LAB HEMATOLOGY METHOD 07/10/2025 8:40 PM EDT [facility] Glucose, Whole Blood 206(H) 74 - 99 mg/dL LAB HEMATOLOGY METHOD 07/10/2025 8:40 PM EDT [facility] Ionized Calcium, Whole Blood 5.0 4.6 - 5.1 mg/dL LAB HEMATOLOGY METHOD 07/10/2025 8:40 PM EDT [facility] Lactate, Arterial, Whole Blood 1.7(H) 0.5 - 1.6 mmol/L LAB HEMATOLOGY METHOD 07/10/2025 8:40 PM EDT [facility] Blood Arterial blood specimen / Unknown Arterial Puncture / Unknown 07/10/2025 8:23 PM EDT 07/10/2025 8:35 PM EDT us Luanne Crawford MD LAB BLOOD ORDERABLES Final Result [facility] [address] [place] [address] * (ABNORMAL) POCT glucose meter (07/10/2025 8:03 PM EDT) [facility] POCT Glucose 206(H) 74 - 99 [...] Comment 07/10/2025 8:05 PM EDT [facility] Home Economist Consumer Service ID Cheyanne Briceño 07/10/2025 8:05 PM EDT [facility] Device ID [id number] 07/10/2025 8:05 PM EDT [facility] Specimen Type POC Capillary 07/10/2025 8:05 PM EDT [facility] Blood Capillary blood specimen / Unknown 07/10/2025 8:03 PM EDT 07/10/2025 8:05 PM EDT Luanne Crawford MD LAB POINT OF CARE TEST DOCKED DEVICE UNSOLICITED RESULTS Final Result [facility] [address] [place] [address] * (ABNORMAL) POCT glucose meter (07/10/2025 6:22 PM EDT) [facility] POCT Glucose 150(H) 74 - 99 [...] 07/10/2025 6:25 PM EDT [facility] Home Economist Consumer Service ID Zara Segovia 025 6:25 PM EDT [facility] Device ID [id number] 07/10/2025 6:25 PM EDT [facility] Specimen Type POC Capillary 07/10/2025 6:25 PM EDT [facility] Blood Capillary blood specimen / Unknown 07/10/2025 6:22 PM EDT 07/10/2025 6:25 PM EDT us Luanne Crawford MD LAB POINT OF CARE TEST DOCKED DEVICE UNSOLICITED RESULTS Final Result Performing Organization Address City/[facility] Co de Phone Number [facility] [address] [place] [address] * (ABNORMAL) POCT glucose meter (07/10/2025 2:17 PM EDT) [facility] POCT Glucose 145(H) 74 - 99 mg/dL [...] Comment 07/10/2025 2:19 PM EDT [facility] Home Economist Consumer Service ID Zara Segovia 025 2:19 PM EDT [facility] Device ID [id number] 07/10/2025 2:19 PM EDT [facility] Specimen Type POC Arterial 07/10/2025 2:19 PM EDT [facility] Blood Arterial blood specimen / Unknown 07/10/2025 2:17 PM EDT 07/10/2025 2:19 PM EDT us Luanne Crawford MD LAB POINT OF CARE TEST DOCKED DEVICE UNSOLICITED RESULTS Final Result Performing Organization Address City/[facility] Co de Phone Number [facility] [address] [place] [address] * XR Abdomen 1 View (07/10/2025 12:03 [...] of the abdomen. COMPARISON: None. FINDINGS: Limited [id number] abdominal radiograph for the purpose of locating tube position. The tip of the nasogastric tube is within the mid stomach. Procedure Note Bernabe Sen MD - 07/10/2025 CLINICAL INDICATION: feeding tube placement TECHNIQUE: Supine radiograph of the abdomen. COMPARISON: None. FINDINGS: Limited [id number] abdominal radiograph for the purpose of locatingtube [...] 99 mg/dL 07/10/2025 12:02 PM EDT [facility] Comment:Accuracy of a glucos e result [...] 07/10/2025 12:02 PM EDT [facility] Home [employer]ist Consumer Service ID Martin Segovianicholas Barry 025 12:02 PM EDT [facility] Device ID [id number] 07/10/2025 12:02 PM EDT [facility] Specimen Type POC Arterial 07/10/2025 12:02 PM EDT [facility] Blood Arterial blood specimen / Unknown 07/10/2025 12:00 PM EDT 07/10/2025 12:02 PM EDT us Luanne Crawford MD LAB POINT OF CARE TEST DOCKED DEVICE UNSOLICITED RESULTS Final Result Performing Organization Address City/[facility] Co de Phone Number [facility] [address] [place] [address] * (ABNORMAL) POCT glucose meter (07/10/2025 9:50 AM EDT) [facility] POCT Glucose 134(H) 74 - 99 [...] Comment 07/10/2025 9:52 AM EDT [facility] Home Economist Consumer Service ID Zara Segovia 025 9:52 AM EDT [facility] Device ID [id number] 07/10/2025 9:52 AM EDT [facility] Specimen Type POC Arterial 07/10/2025 9:52 AM EDT [facility] Blood Arterial blood specimen / Unknown 07/10/2025 9:50 AM EDT 07/10/2025 9:52 AM EDT us Luanne Crawford MD LAB POINT OF CARE TEST DOCKED DEVICE UNSOLICITED RESULTS Final Result Performing Organization Address City/[facility] de Phone Number [facility] [address] [place] [address] * ECG Adult (07/10/2025 8:42 AM EDT) [facility] EKG DIAGNOSIS CLASS Abnormal MUSE ECG Ventricular Rate 79 BPM MUSE ECG Atrial Rate 79 BPM MUSE ECG [place] Interval 188 ms MUSE ECG QRSD Interval 90 ms MUSE ECG QT Interval 354 ms MUSE ECG QTC Interval 405 ms MUSE ECG P [place] 44 degrees MUSE ECG R [place] 17 degrees MUSE ECG T Wave [place] 27 degrees MUSE ECG Diagnosis Sinus rhythm with frequent premature ventricular complexes MUSE ECG Diagnosis Low voltage QRS MUSE ECG Diagnosis Cannot rule out Anterior infarct , age undetermined MUSE ECG Diagnosis MUSE ECG Diagnosis MUSE ECG Diagnosis Confirmed by Octavio Walsh ([id number]) on 07/10/2025 11:49:20 AM MUSE ECG 07/10/2025 8:42 AM EDT 07/10/2025 11:49 AM EDT us Luanne Crawford MD ECG ORDERABLES Final Resu lt MUSE ECG * [place] [facility], E/M 30-74 MINUTES (07/10/2025 8:15 [...] for testing. Comment 07/10/2025 9:22 AM EDT [facility] Home Economist Consumer Service ID Zara Segovia 025 9:22 AM EDT [facility] Device ID [id number] 07/10/2025 9:22 AM EDT [facility] Specimen Type POC Arterial 07/10/2025 9:22 AM EDT [facility] Blood Arterial blood specimen / Unknown 07/10/2025 8:04 AM EDT 07/10/2025 9:22 AM EDT us Luanne Crawford MD LAB POINT OF CARE TEST DOCKED DEVICE UNSOLICITED RESULTS Final Result [facility] [address] [place] [id number] * (ABNORMAL) POCT glucose meter (07/10/2025 6:04 AM EDT) Pathologist [facility] POCT Glucose 187(H) 74 - [...] 07/10/2025 6:05 AM EDT [facility] Home Economist Consumer Service ID Cheyanne Briceño 07/10/2025 6:05 AM EDT [facility] Device ID [id number] 07/10/2025 6:05 AM EDT [facility] Specimen Type POC Arterial 07/10/2025 6:05 AM EDT [facility] Blood Arterial blood specimen / Unknown 07/10/2025 6:04 AM EDT 07/10/2025 6:05 AM EDT us Luanne Crawford MD LAB POINT OF CARE TEST DOCKED DEVICE UNSOLICITED RESULTS Final Result Performing Organization Address [facility] de Phone Number HEALTHCARE [facility] [address] [place] [address] * (ABNORMAL) POCT glucose meter (07/10/2025 3:59 AM EDT) [facility] POCT Glucose 153(H) 74 - 99 [...] Comment 07/10/2025 4:01 AM EDT [facility] [employer] ID Cheyanne Briceño 07/10/2025 4:01 AM EDT [facility] Device ID [id number] 07/10/2025 4:01 AM EDT [facility] Specimen Type POC Arterial 07/10/2025 4:01 AM EDT [facility] Blood Arterial blood specimen / Unknown 07/10/2025 3:59 AM EDT 07/10/2025 4:01 AM EDT us Luanne Crawford MD LAB POINT OF CARE TEST DOCKED DEVICE UNSOLICITED RESULTS Final Result Performing Organization Address City/[facility] Co de Phone Number [facility] [address] [place] [address] * (ABNORMAL) POCT glucose meter (07/10/2025 3:01 AM EDT) [facility] POCT Glucose 165(H) 74 - 99 [...] 07/10/2025 3:03 AM EDT [facility] Home [employer] Consumer Service ID Cheyanne Briceño 07/10/2025 3:03 AM EDT [facility] Device ID [id number] 07/10/2025 3:03 AM EDT [facility] Specimen Type POC Arterial 07/10/2025 3:03 AM EDT [facility] Blood Arterial blood specimen / Unknown 07/10/2025 3:01 AM EDT 07/10/2025 3:03 AM EDT Luanne Crawford MD LAB POINT OF CARE TEST DOCKED DEVICE UNSOLICITED RESULTS Final Result [facility] [address] [place] [address] * (ABNORMAL) POCT glucose meter (07/10/2025 2:03 AM EDT) [facility] POCT Glucose 180(H) 74 - 99 [...] 07/10/2025 2:04 AM EDT [facility] Home [employer]ist Consumer Service ID Cheyanne Briceño 07/10/2025 2:04 AM EDT [facility] Device ID [id number] 07/10/2025 2:04 AM EDT [facility] Specimen Type POC Arterial 07/10/2025 2:04 AM EDT [facility] Blood Arterial blood specimen / Unknown 07/10/2025 2:03 AM EDT 07/10/2025 2:04 AM EDT Luanne Crawford MD LAB POINT OF CARE TEST DOCKED DEVICE UNSOLICITED RESULTS Final Result Performing Organization Address City/[facility]/ZIP Co de Phone Number [facility] [address] [place] [address] * (ABNORMAL) POCT glucose meter (07/10/2025 12:59 [...] Comment 07/10/2025 1:00 AM EDT [facility] Home Economist Consumer Service ID Cheyanne Briceño 07/10/2025 1:00 AM EDT [facility]ARE [facility] Device ID [id number] 07/10/2025 1:00 AM EDT [facility]ALTH[facility]ARE [facility] Specimen Type POC Arterial 07/10/2025 1:00 AM EDT [facility] Blood Arterial blood specimen / Unknown 07/10/2025 12:59 AM EDT 07/10/2025 1:00 AM EDT us Luanne Crawford MD LAB POINT OF CARE TEST DOCKED DEVICE UNSOLICITED RESULTS Final Result Performing Organization Address City/[facility] Co de Phone Number [facility] [address] [place] [address] * Phosphorus (07/10/2025 12:03 AM EDT) Phosphorus, Plasma 4.2 2.5 - 4.5 mg/dL 07/10/2025 12:40 AM EDT [facility] Blood Arterial blood specimen / Unknown Venipuncture / Unknown 07/10/2025 12:03 AM EDT 07/10/2025 12:10 AM EDT us Luanne Crawford MD LAB BLOOD ORDERABLES Final Result Performing Organization Address City/[facility]/ZIP Co de Phone Number [facility] [address] [place] [address] * Magnesium, Plasma (07/10/2025 12:03 AM EDT) Magnesium, Plasma 2.1 1.9 - 2.4 mg/dL 07/10/2025 12:40 AM EDT [facility] Blood Arterial blood specimen / Unknown Venipuncture / Unknown 07/10/2025 12:03 AM EDT 07/10/2025 12:10 AM EDT us Luanne Crawford MD LAB BLOOD ORDERABLES Final Result Performing Organization Address City/[facility]/ZIP Co de Phone Number [facility] [address] [place] [address] * (ABNORMAL) Basic Metabolic Panel, Plasma (07/10/2025 12:03 AM EDT) Glucose, Plasma 155(H) 74 - 99 mg/dL 07/10/2025 12:40 AM EDT [facility] BUN, Plasma 22(H) 7 - 21 mg/dL 07/10/2025 12:40 AM EDT [facility] Creatinine, Plasma 1.25(H) 0.60 - 1.10 mg/dL 07/10/2025 12:40 AM EDT [facility] BUN/Creatinine Ratio 18 07/10/2025 12:40 AM EDT [facility] Sodium, Plasma 134(L) 136 - 145 mmol/L 07/10/2025 12:40 AM EDT [facility] Potassium, Plasma 3.7 3.6 - 4.9 mmol/L 07/10/2025 12:40 AM EDT [facility] Chloride, Plasma 101 97 - 107 mmol/L 07/10/2025 12:40 AM EDT [facility] CO2, Plasma 25 22 - 29 mmol/L 07/10/2025 12:40 AM EDT [facility] Anion Gap 8 6 - 16 mmol/L 07/10/2025 12:40 AM EDT [facility] Total Calcium, Plasma 9.3 8.9 - 10.2 mg/dL 07/10/2025 12:40 AM EDT [facility] eGFRcr 52.9 mL/min/1.7 3m*2 07/10/2025 12:40 AM EDT [facility] Comment:Reported eGFRcr in m L/min/1.73m2 is based the CKD-EPI 2020 equation that does not use a race coefficient. Blood Arterial blood specimen / Unknown Venipuncture / Unknown 07/10/2025 12:03 AM EDT 07/10/2025 12:10 AM EDT us Luanne Crawford MD LAB BLOOD ORDERABLES Final Result [facility] [address] [place] [address] * (ABNORMAL) CBC W/O Differential (07/10/2025 12:03 AM EDT) WBC Count 17.64(H) 3.70 - 10.30 10*3/uL LAB HEMATOLOGY METHOD 07/10/2025 12:22 AM EDT [facility] RBC Count 3.83(L) 3.90 - 5.20 10*6/uL LAB HEMATOLOGY METHOD 07/10/2025 12:22 AM EDT [facility] HGB 10.6(L) 11.2 - 15.7 g/dL LAB HEMATOLOGY METHOD 07/10/2025 12:22 AM EDT [facility] HCT 33.3(L) 34.0 - 45.0 % LAB HEMATOLOGY METHOD 07/10/2025 12:22 AM EDT [facility] Platelet Count 309 155 - 369 10*3/uL LAB HEMATOLOGY METHOD 07/10/2025 12:22 AM EDT [facility] MCV 87 79 - 98 fL LAB HEMATOLOGY METHOD 07/10/2025 12:22 AM EDT [facility] MCH 27.7 26.0 - 32.0 pg LAB HEMATOLOGY METHOD 07/10/2025 12:22 AM EDT [facility] MCHC 31.8 30.7 - 35.5 g/dL LAB HEMATOLOGY METHOD 07/10/2025 12:22 AM EDT [facility] RDW 17.9(H) 11.5 - 14.5 % LAB HEMATOLOGY METHOD 07/10/2025 12:22 AM EDT [facility] MPV 10.3 8.8 - 12.5 fL LAB HEMATOLOGY METHOD 07/10/2025 12:22 AM EDT [facility] nRBC 0.0 <=0.0 per 100 WBCs LAB HEMATOLOGY METHOD 07/10/2025 12:22 AM EDT [facility] Blood Arterial blood specimen / Unknown Venipuncture / Unknown 07/10/2025 12:03 AM EDT 07/10/2025 12:11 AM EDT us Luanne Crawford MD LAB BLOOD ORDERABLES Final Result [facility] [address] [place] [address] * (ABNORMAL) POCT glucose meter (07/10/2025 12:02 [...] Comment 07/10/2025 12:04 AM EDT [facility] Home Economist Consumer Service ID Cheyanne Briceño 07/10/2025 12:04 AM EDT [facility] Device ID [id number] 07/10/2025 12:04 AM EDT [facility] Specimen Type POC Arterial 07/10/2025 12:04 AM EDT [facility] Blood Arterial blood specimen / Unknown 07/10/2025 12:02 AM EDT 07/10/2025 12:04 AM EDT Luanne Crawford MD LAB POINT OF CARE TEST DOCKED DEVICE UNSOLICITED RESULTS Final Result Performing Organization Address City/[facility] Co de Phone Number [facility] [address] [place] [address] * (ABNORMAL) POCT glucose meter (07/09/2025 10:01 [...] Comment 07/09/2025 10:04 PM EDT [facility] Home Economist Consumer Service ID Cheyanne Briceño 07/09/2025 10:04 PM EDT [facility] Device ID [id number] 07/09/2025 10:04 PM EDT [facility] Specimen Type POC Arterial 07/09/2025 10:04 PM EDT [facility] Blood Arterial blood specimen / Unknown 07/09/2025 10:01 PM EDT 07/09/2025 10:04 PM EDT Luanne Crawford MD LAB POINT OF CARE TEST DOCKED DEVICE UNSOLICITED RESULTS Final Result Performing Organization Address City/[facility] Co de Phone Number [facility] [address] [place] [address] * (ABNORMAL) POCT glucose meter (07/09/2025 8:09 [...] Comment 07/09/2025 8:11 PM EDT [facility] Home Economist Consumer Service ID Cheyanne Briceño 07/09/2025 8:11 PM EDT [facility] Device ID [id number] 07/09/2025 8:11 PM EDT [facility] Specimen Type POC Capillary 07/09/2025 8:11 PM EDT [facility] Blood Capillary blood specimen / Unknown 07/09/2025 8:09 PM EDT 07/09/2025 8:11 PM EDT us Luanne Crawford MD LAB POINT OF CARE TEST DOCKED DEVICE UNSOLICITED RESULTS Final Result Performing Organization Address [facility] Co de Phone Number [facility] [address] [place] [address] * (ABNORMAL) POCT glucose meter (07/09/2025 6:22 [...] Comment 07/09/2025 6:24 PM EDT [facility] Home Economist Consumer Service ID Jeana Bear 07/09/2025 6:24 PM EDT [facility] Device ID [id number] 07/09/2025 6:24 PM EDT [facility] Specimen Type POC Capillary 07/09/2025 6:24 PM EDT [facility] Blood Capillary blood specimen / Unknown 07/09/2025 6:22 PM EDT 07/09/2025 6:24 PM EDT us Luanne Crawford MD LAB POINT OF CARE TEST DOCKED DEVICE UNSOLICITED RESULTS Final Result Performing Organization Address City/[facility]/ZIP Co de Phone Number [facility] [address] [place] [address] * (ABNORMAL) POCT glucose meter (07/09/2025 4:06 [...] Comment 07/09/2025 4:07 PM EDT [facility] Home Economist Consumer Service ID Jeana Bear 07/09/2025 4:07 PM EDT [facility]ARE LAB Device ID [id number] 07/09/2025 4:07 PM EDT [facility] Specimen Type POC Capillary 07/09/2025 4:07 PM EDT [facility] Blood Capillary blood specimen / Unknown 07/09/2025 4:06 PM EDT 07/09/2025 4:07 PM EDT us Luanne Crawford MD LAB POINT OF CARE TEST DOCKED DEVICE UNSOLICITED RESULTS Final Result Performing Organization Address City/State/[facility] Co de Phone Number [facility] [address] [place] [address] * (ABNORMAL) Blood gas, arterial (07/09/2025 3:16 PM EDT) pH, Arterial 7.31(L) 7.35 - 7.45 LAB HEMATOLOGY METHOD 07/09/2025 3:40 PM EDT [facility] pCO2, Arterial 53(H) 35 - 48 mmHg LAB HEMATOLOGY METHOD 07/09/2025 3:40 PM EDT [facility] pO2, Arterial 153(H) 83 - 108 mmHg LAB HEMATOLOGY METHOD 07/09/2025 3:40 PM EDT [facility] SO2, Measured, Arterial 100(H) 94 - 98 % LAB HEMATOLOGY METHOD 07/09/2025 3:40 PM EDT [facility] Base Excess, Arterial -0.4 -2.0 - 3.0 mmol/L LAB HEMATOLOGY METHOD 07/09/2025 3:40 PM EDT [facility] Bicarbonate, Calculated, Arterial 26 22 - 26 mmol/L LAB HEMATOLOGY METHOD 07/09/2025 3:40 PM EDT [facility] Hematocrit, Whole Blood 30.6(L) 34.0 - 45.0 % LAB HEMATOLOGY METHOD 07/09/2025 3:40 PM EDT [facility] Sodium, Whole Blood 141 136 - 145 mmol/L LAB HEMATOLOGY METHOD 07/09/2025 3:40 PM EDT [facility] Potassium, Whole Blood 3.4(L) 3.6 - 4.9 mmol/L LAB HEMATOLOGY METHOD 07/09/2025 3:40 PM EDT [facility] Chloride, Whole Blood 107 97 - 107 mmol/L LAB HEMATOLOGY METHOD 07/09/2025 3:40 PM EDT [facility] Glucose, Whole Blood 141(H) 74 - 99 mg/dL LAB HEMATOLOGY METHOD 07/09/2025 3:40 PM EDT [facility] Ionized Calcium, Whole Blood 4.9 4.6 - 5.1 mg/dL LAB HEMATOLOGY METHOD 07/09/2025 3:40 PM EDT [facility] Lactate, Arterial, Whole Blood 0.9 0.5 - 1.6 mmol/L LAB HEMATOLOGY METHOD 07/09/2025 3:40 PM EDT [facility] Blood Arterial blood specimen / Unknown Arterial Line / Unknown 07/09/2025 3:16 PM EDT 07/09/2025 3:38 PM EDT us Luanne Crawford MD LAB BLOOD ORDERABLES Final Result [facility] [address] [place] [address] * (ABNORMAL) POCT glucose meter (07/09/2025 3:01 PM EDT) POCT Glucose 135(H) 74 - 99 mg/dL 07/09/2025 3:03 PM EDT [facility] Comment:Accuracy of a glucos e [...] 07/09/2025 3:03 PM EDT [facility] Home [employer]ist Consumer Service ID Jeana Bear 07/09/2025 3:03 PM EDT [facility] Device ID [id number] 07/09/2025 3:03 PM EDT [facility] Specimen Type POC Capillary 07/09/2025 3:03 PM EDT [facility] Blood Capillary blood specimen / Unknown 07/09/2025 3:01 PM EDT 07/09/2025 3:03 PM EDT us Luanne Crawford MD LAB POINT OF CARE TEST DOCKED DEVICE UNSOLICITED RESULTS Final Result Performing Organization Address [facility] de Phone Number [facility] [address] [place] [address] * (ABNORMAL) POCT glucose meter (07/09/2025 1:57 [...] 07/09/2025 1:59 PM EDT [facility] Home Economist Consumer Service ID Jeana Bear 07/09/2025 1:59 PM EDT [facility] Device ID [id number] 07/09/2025 1:59 PM EDT [facility] Specimen Type POC Capillary 07/09/2025 1:59 PM EDT [facility] Blood Capillary blood specimen / Unknown 07/09/2025 1:57 PM EDT 07/09/2025 1:59 PM EDT us Luanne Crawford MD LAB POINT OF CARE TEST DOCKED DEVICE UNSOLICITED RESULTS Final Result Performing Organization Address City/[facility] Co de Phone Number [facility] [address] [place] [address] * Phosphorus (07/09/2025 1:21 PM EDT) Phosphorus, Plasma 4.2 2.5 - 4.5 mg/dL 07/09/2025 2:49 PM EDT [facility] Blood Arterial blood specimen / Unknown Arterial Line / Unknown 07/09/2025 1:21 PM EDT 07/09/2025 2:01 PM EDT Luanne Crawford MD LAB BLOOD ORDERABLES Final Result Performing Organization Address City/[facility]/ZIP Co de Phone Number [facility] [address] [place] [address] * Magnesium (07/09/2025 1:21 PM EDT) Magnesium, Plasma 2.3 1.9 - 2.4 mg/dL 07/09/2025 2:49 PM EDT [facility] Blood Arterial blood specimen / Unknown Arterial Line / Unknown 07/09/2025 1:21 PM EDT 07/09/2025 2:01 PM EDT Luanne Crawford MD LAB BLOOD ORDERABLES Final Result Performing Organization Address City/[facility]/ZIP Co de Phone Number [facility] [address] [place] [address] * (ABNORMAL) Basic metabolic panel (07/09/2025 1:21 PM EDT) Glucose, Plasma 100(H) 74 - 99 mg/dL 07/09/2025 2:49 PM EDT [facility] BUN, Plasma 26(H) 7 - 21 mg/dL 07/09/2025 2:49 PM EDT [facility] Creatinine, Plasma 1.42(H) 0.60 - 1.10 mg/dL 07/09/2025 2:49 PM EDT [facility] BUN/Creatinine Ratio 18 07/09/2025 2:49 PM EDT [facility] Sodium, Plasma 140 136 - 145 mmol/L 07/09/2025 2:49 PM EDT [facility] Potassium, Plasma 3.7 3.6 - 4.9 mmol/L 07/09/2025 2:49 PM EDT [facility] Chloride, Plasma 104 97 - 107 mmol/L 07/09/2025 2:49 PM EDT [facility] CO2, Plasma 24 22 - 29 mmol/L 07/09/2025 2:49 PM EDT [facility] Anion Gap 12 6 - 16 mmol/L 07/09/2025 2:49 PM EDT [facility] Total Calcium, Plasma 9.1 8.9 - 10.2 mg/dL 07/09/2025 2:49 PM EDT [facility] eGFRcr 45.4 mL/min/1.7 3m*2 07/09/2025 2:49 PM EDT [facility] Comment:Reported eGFRcr in m L/min/1.73m2 is based the CKD-EPI 2020 equation that does not use a race coefficient. Blood Arterial blood specimen / Unknown Arterial Line / Unknown 07/09/2025 1:21 PM EDT 07/09/2025 2:01 PM EDT us Luanne Crawford MD LAB BLOOD ORDERABLES Final Result [facility] [address] [place] [address] * (ABNORMAL) POCT glucose meter (07/09/2025 1:20 [...] Comment 07/09/2025 1:22 PM EDT [facility] Home Economist Consumer Service ID Jeana Bear 07/09/2025 1:22 PM EDT [facility] Device ID [id number] 07/09/2025 1:22 PM EDT [facility] Specimen Type POC Arterial 07/09/2025 1:22 PM EDT [facility] Blood Arterial blood specimen / Unknown 07/09/2025 1:20 PM EDT 07/09/2025 1:22 PM EDT us Luanne Crawford MD LAB POINT OF CARE TEST DOCKED DEVICE UNSOLICITED RESULTS Final Result Performing Organization Address City/[facility]/ZIP Co de Phone Number [facility] [address] [place] [address] * (ABNORMAL) POCT glucose meter (07/09/2025 12:44 [...] Comment 07/09/2025 12:45 PM EDT [facility] Home Economist Consumer Service ID Jeana Bear 07/09/2025 12:45 PM EDT [facility] Device ID [id number] 07/09/2025 12:45 PM EDT [facility] Specimen Type POC Capillary 07/09/2025 12:45 PM EDT [facility] Blood Capillary blood specimen / Unknown 07/09/2025 12:44 PM EDT 07/09/2025 12:45 PM EDT us Luanne Crawford MD LAB POINT OF CARE TEST DOCKED DEVICE UNSOLICITED RESULTS Final Result [facility] [address] [place] [address] * (ABNORMAL) POCT glucose meter (07/09/2025 12:19 [...] Comment 07/09/2025 12:21 PM EDT [facility] Home Economist Consumer Service ID Jeana Bear 07/09/2025 12:21 PM EDT [facility] Device ID [id number] 07/09/2025 12:21 PM EDT [facility] Specimen Type POC Capillary 07/09/2025 12:21 PM EDT [facility] Blood Capillary blood specimen / Unknown 07/09/2025 12:19 PM EDT 07/09/2025 12:21 PM EDT us Luanne Crawford MD LAB POINT OF CARE TEST DOCKED DEVICE UNSOLICITED RESULTS Final Result Performing Organization Address [facility] Co de Phone Number [facility] [address] [place] [address] * Blood Culture (Aerobic/Anaerobet Set) (07/09/2025 10:35 AM EDT) Culture No growth at day 5 KAR[place]INA 07/14/2025 12:02 PM EDT [facility] Blood Structure of antecubital vein / Unknown Venipuncture / Unknown 07/09/2025 10:35 AM EDT 07/09/2025 10:50 AM EDT us My Mckinney MD LAB MICROBIOLOGY - GENE RAL ORDERABLES Final Result [facility] [address] [place] [address] * Blood Culture (Aerobic/Anaerobet Set) (07/09/2025 10:35 AM EDT) Culture No growth at day 5 KAROLINA 07/14/2025 12:02 PM EDT [facility] Blood Structure of antecubital vein / Unknown Venipuncture / Unknown 07/09/2025 10:35 AM EDT 07/09/2025 10:50 AM EDT us My Mckinney MD LAB MICROBIOLOGY - GENE RAL ORDERABLES Final Result [facility] [address] [place] [address] * (ABNORMAL) POCT glucose meter (07/09/2025 10:04 [...] Comment 07/09/2025 10:05 AM EDT [facility] Home Economist Consumer Service ID Jeana Bear 07/09/2025 10:05 AM EDT [facility]ALTH[facility] Device ID [id number] 07/09/2025 10:05 AM EDT [facility] Specimen Type POC Capillary 07/09/2025 10:05 AM EDT [facility] Blood Capillary blood specimen / Unknown 07/09/2025 10:04 AM EDT 07/09/2025 10:05 AM EDT us Luanne Crawford MD LAB POINT OF CARE TEST DOCKED DEVICE UNSOLICITED RESULTS Final Result Performing Organization Address City/[facility]/ZIP Co de Phone Number [facility] [address] [place] [address] * Multi Drug Resistance Test (07/09/2025 9:46 AM EDT) Culture No growth at day 1 07/10/2025 11:58 AM EDT [facility] Swab (Nares and Leann Rectal) Non-blood Collection / Unknown 07/09/2025 9:46 AM EDT 07/09/2025 10:09 AM EDT Narrative [facility] - 07/10/2025 11:58 AM EDT [...] LAB MICROBIOLOGY - GENERAL ORDERABLES Final Result [facility] [address] [place] [address] * (ABNORMAL) Blood gas, arterial (07/09/2025 8:47 AM EDT) pH, Arterial 7.30(L) 7.35 - 7.45 LAB HEMATOLOGY METHOD 07/09/2025 8:55 AM EDT [facility] pCO2, Arterial 53(H) 35 - 48 mmHg LAB HEMATOLOGY METHOD 07/09/2025 8:55 AM EDT [facility] pO2, Arterial 173(H) 83 - 108 mmHg LAB HEMATOLOGY METHOD 07/09/2025 8:55 AM EDT [facility] SO2, Measured, Arterial 98 94 - 98 % LAB HEMATOLOGY METHOD 07/09/2025 8:55 AM EDT [facility] Base Excess, Arterial -0.8 -2.0 - 3.0 mmol/L LAB HEMATOLOGY METHOD 07/09/2025 8:55 AM EDT [facility] Bicarbonate, Calculated, Arterial 26 22 - 26 mmol/L LAB HEMATOLOGY METHOD 07/09/2025 8:55 AM EDT [facility] Hematocrit, Whole Blood 27.3(L) 34.0 - 45.0 % LAB HEMATOLOGY METHOD 07/09/2025 8:55 AM EDT [facility] Sodium, Whole Blood 140 136 - 145 mmol/L LAB HEMATOLOGY METHOD 07/09/2025 8:55 AM EDT [facility] Potassium, Whole Blood 2.9(L) 3.6 - 4.9 mmol/L LAB HEMATOLOGY METHOD 07/09/2025 8:55 AM EDT [facility] Chloride, Whole Blood 106 97 - 107 mmol/L LAB HEMATOLOGY METHOD 07/09/2025 8:55 AM EDT [facility] Glucose, Whole Blood 155(H) 74 - 99 mg/dL LAB HEMATOLOGY METHOD 07/09/2025 8:55 AM EDT [facility] Ionized Calcium, Whole Blood 5.0 4.6 - 5.1 mg/dL LAB HEMATOLOGY METHOD 07/09/2025 8:55 AM EDT [facility] Lactate, Arterial, Whole Blood 1.4 0.5 - 1.6 mmol/L LAB HEMATOLOGY METHOD 07/09/2025 8:55 AM EDT [facility] Blood Arterial blood specimen / Unknown Arterial Line / Unknown 07/09/2025 8:47 AM EDT 07/09/2025 8:54 AM EDT us Dorcas Hennessy MD LAB BLOOD ORDERABLES Final Resul t [facility] [address] [place] [address] * (ABNORMAL) POCT glucose meter (07/09/2025 8:01 [...] Comment 07/09/2025 8:03 AM EDT [facility] Home Economist Consumer Service ID Jeana Bear 07/09/2025 8:03 AM EDT [facility] Device ID [id number] 07/09/2025 8:03 AM EDT [facility] Specimen Type POC Capillary 07/09/2025 8:03 AM EDT [facility] Blood Capillary blood specimen / Unknown 07/09/2025 8:01 AM EDT 07/09/2025 8:03 AM EDT us Luanne Crawford MD LAB POINT OF CARE TEST DOCKED DEVICE UNSOLICITED RESULTS Final Result Performing Organization Address City/State/[facility] Co de Phone Number [facility] [address] [place] [address] * [place] [facility], E/M 30-74 MINUTES (07/09/2025 7:15 [...] POCT glucose meter (07/09/2025 6:05 AM EDT) [facility] POCT Glucose 196(H) 74 - 99 mg/dL 07/09/2025 6:20 AM EDT [facility] Comment:Accuracy of a glucos e result [...] for testing. Comment 07/09/2025 6:20 AM EDT [facility] Home Economist Consumer Service ID Cheyanne Briceño 07/09/2025 6:20 AM EDT [facility] Device ID [id number] 07/09/2025 6:20 AM EDT [facility] Specimen Type POC Arterial 07/09/2025 6:20 AM EDT [facility] Blood Arterial blood specimen / Unknown 07/09/2025 6:05 AM EDT 07/09/2025 6:20 AM EDT Luanne Crawford MD LAB POINT OF CARE TEST DOCKED DEVICE UNSOLICITED RESULTS Final Result Performing Organization Address City/[facility]/ZIP Co de Phone Number [facility] [address] [place] [address] * (ABNORMAL) Hemoglobin A1c (07/09/2025 4:57 AM EDT) Hemoglobin A1c 7.5(H) <5.7 % 07/09/2025 12:09 PM EDT [facility] Blood Arterial blood specimen / Unknown Venipuncture / Unknown 07/09/2025 4:57 AM EDT 07/09/2025 5:07 AM EDT Narrative [facility] - 07/09/2025 12:09 PM EDT HA1C Interpretive Data: Diagnosis of Diabetes: Diabetic > or = 6.5% Pre-diabetic 5.7 to 6.4% Non-diabetic < or = 5.6% Glycemic Targets for Type I and Type II Diabetics: Non- Adults <7.0% Adults <6.0% Children and Adolescents <7.5% Source: [employer]. Standards of medical care in diabetes,2017. Diabetes Care.2017:40 (suppl 1):S1-S135. us Dorcas Hennessy MD LAB BLOOD ORDERABLES Final Resul t [facility] [address] [place] [address] * Phosphorus (07/09/2025 4:57 AM EDT) Phosphorus, Plasma 4.1 2.5 - 4.5 mg/dL 07/09/2025 5:35 AM EDT [facility] Blood Arterial blood specimen / Unknown Venipuncture / Unknown 07/09/2025 4:57 AM EDT 07/09/2025 5:06 AM EDT us Luanne Crawford MD LAB BLOOD ORDERABLES Final Result [facility] [address] [place] [address] * Magnesium, Plasma (07/09/2025 4:57 AM EDT) Magnesium, Plasma 2.2 1.9 - 2.4 mg/dL 07/09/2025 5:35 AM EDT [facility] Blood Arterial blood specimen / Unknown Venipuncture / Unknown 07/09/2025 4:57 AM EDT 07/09/2025 5:06 AM EDT us Luanne Crawford MD LAB BLOOD ORDERABLES Final Result Performing Organization Address [facility] Co de Phone Number [facility] [address] [place] [address] * (ABNORMAL) Basic Metabolic Panel, Plasma (07/09/2025 4:57 AM EDT) Glucose, Plasma 235(H) 74 - 99 mg/dL 07/09/2025 5:35 AM EDT [facility] BUN, Plasma 30(H) 7 - 21 mg/dL 07/09/2025 5:35 AM EDT [facility] Creatinine, Plasma 1.58(H) 0.60 - 1.10 mg/dL 07/09/2025 5:35 AM EDT [facility] BUN/Creatinine Ratio 19 07/09/2025 5:35 AM EDT [facility] Sodium, Plasma 136 136 - 145 mmol/L 07/09/2025 5:35 AM EDT [facility] [facility] Potassium, Plasma 3.5(L) 3.6 - 4.9 mmol/L 07/09/2025 5:35 AM EDT [facility] Chloride, Plasma 101 97 - 107 mmol/L 07/09/2025 5:35 AM EDT [facility] CO2, Plasma 23 22 - 29 mmol/L 07/09/2025 5:35 AM EDT [facility] Anion Gap 12 6 - 16 mmol/L 07/09/2025 5:35 AM EDT [facility] Total Calcium, Plasma 9.2 8.9 - 10.2 mg/dL 07/09/2025 5:35 AM EDT [facility] eGFRcr 40.0 mL/min/1.7 3m*2 07/09/2025 5:35 AM EDT [facility] Comment:Reported eGFRcr in m L/min/1.73m2 is based the CKD-EPI 2020 equation that does not use a race coefficient. Blood Arterial blood specimen / Unknown Venipuncture / Unknown 07/09/2025 4:57 AM EDT 07/09/2025 5:06 AM EDT us Luanne Crawford MD LAB BLOOD ORDERABLES Final Result [facility] [address] [place] [address] * (ABNORMAL) CBC W/O Differential (07/09/2025 4:57 AM EDT) WBC Count 32.25(H) 3.70 - 10.30 10*3/uL LAB HEMATOLOGY METHOD 07/09/2025 5:15 AM EDT [facility] RBC Count 3.89(L) 3.90 - 5.20 10*6/uL LAB HEMATOLOGY METHOD 07/09/2025 5:15 AM EDT [facility] HGB 11.0(L) 11.2 - 15.7 g/dL LAB HEMATOLOGY METHOD 07/09/2025 5:15 AM EDT [facility] HCT 33.4(L) 34.0 - 45.0 % LAB HEMATOLOGY METHOD 07/09/2025 5:15 AM EDT [facility] Platelet Count 358 155 - 369 10*3/uL LAB HEMATOLOGY METHOD 07/09/2025 5:15 AM EDT [facility] MCV 86 79 - 98 fL LAB HEMATOLOGY METHOD 07/09/2025 5:15 AM EDT [facility] MCH 28.3 26.0 - 32.0 pg LAB HEMATOLOGY METHOD 07/09/2025 5:15 AM EDT [facility] MCHC 32.9 30.7 - 35.5 g/dL LAB HEMATOLOGY METHOD 07/09/2025 5:15 AM EDT [facility] RDW 17.4(H) 11.5 - 14.5 % LAB HEMATOLOGY METHOD 07/09/2025 5:15 AM EDT [facility] MPV 10.0 8.8 - 12.5 fL LAB HEMATOLOGY METHOD 07/09/2025 5:15 AM EDT [facility] nRBC 0.0 <=0.0 per 100 WBCs LAB HEMATOLOGY METHOD 07/09/2025 5:15 AM EDT [facility] Blood Arterial blood specimen / Unknown Venipuncture / Unknown 07/09/2025 4:57 AM EDT 07/09/2025 5:07 AM EDT us Luanne Crawford MD LAB BLOOD ORDERABLES Final Result [facility] [address] [place] [address] * (ABNORMAL) POCT glucose meter (07/09/2025 4:03 [...] Comment 07/09/2025 4:05 AM EDT [facility] Home Economist Consumer Service ID Cheyanne Briceño 07/09/2025 4:05 AM EDT [facility] Device ID [id number] 07/09/2025 4:05 AM EDT [facility] Specimen Type POC Arterial 07/09/2025 4:05 AM EDT [facility] Blood Arterial blood specimen / Unknown 07/09/2025 4:03 AM EDT 07/09/2025 4:05 AM EDT us Luanne Crawford MD LAB POINT OF CARE TEST DOCKED DEVICE UNSOLICITED RESULTS Final Result [facility] [address] [place] [address] * XR Chest 1 View (07/09/2025 3:42 [...] the tip terminating 6 cm above the chicih. Enteric tube in place which courses below [...] for testing. Comment 07/09/2025 2:17 AM EDT [facility] Home Economist Consumer Service ID Cheyanne Briceño 07/09/2025 2:17 AM EDT [facility] Device ID [id number] 07/09/2025 2:17 AM EDT [facility] Specimen Type POC Arterial 07/09/2025 2:17 AM EDT [facility] Blood Arterial blood specimen / Unknown 07/09/2025 2:15 AM EDT 07/09/2025 2:17 AM EDT us Luanne Crawford MD LAB POINT OF CARE TEST DOCKED DEVICE UNSOLICITED RESULTS Final Result Performing Organization Address City/State/[facility] Co de Phone Number [facility]ALTHCARE LAB [address] [place], [place] [id number] * (ABNORMAL) Blood gas panel, arterial (07/09/2025 2:11 AM EDT) Pathologist [facility] pH, Arterial 7.25(LL) 7.35 - 7.45 LAB HEMATOLOGY METHOD 07/09/2025 2:23 AM EDT [facility] pCO2, Arterial 56(H) 35 - 48 mmHg LAB HEMATOLOGY METHOD 07/09/2025 2:23 AM EDT [facility] pO2, Arterial 67(L) 83 - 108 mmHg LAB HEMATOLOGY METHOD 07/09/2025 2:23 AM EDT [facility] SO2, Measured, Arterial 91(L) 94 - 98 % LAB HEMATOLOGY METHOD 07/09/2025 2:23 AM EDT [facility] Base Excess, Arterial -2.7(L) -2.0 - 3.0 mmol/L LAB HEMATOLOGY METHOD 07/09/2025 2:23 AM EDT [facility] Bicarbonate, Calculated, Arterial 25 22 - 26 mmol/L LAB HEMATOLOGY METHOD 07/09/2025 2:23 AM EDT [facility] Hematocrit, Whole Blood 31.5(L) 34.0 - 45.0 % LAB HEMATOLOGY METHOD 07/09/2025 2:23 AM EDT [facility] Sodium, Whole Blood 135(L) 136 - 145 mmol/L LAB HEMATOLOGY METHOD 07/09/2025 2:23 AM EDT [facility] Potassium, Whole Blood 3.5(L) 3.6 - 4.9 mmol/L LAB HEMATOLOGY METHOD 07/09/2025 2:23 AM EDT [facility] Chloride, Whole Blood 103 97 - 107 mmol/L LAB HEMATOLOGY METHOD 07/09/2025 2:23 AM EDT [facility] Glucose, Whole Blood 279(H) 74 - 99 mg/dL LAB HEMATOLOGY METHOD 07/09/2025 2:23 AM EDT [facility] Ionized Calcium, Whole Blood 4.9 4.6 - 5.1 mg/dL LAB HEMATOLOGY METHOD 07/09/2025 2:23 AM EDT [facility] Lactate, Arterial, Whole Blood 1.2 0.5 - 1.6 mmol/L LAB HEMATOLOGY METHOD 07/09/2025 2:23 AM EDT [facility] Blood Arterial blood specimen / Unknown Arterial Puncture / Unknown 07/09/2025 2:11 AM EDT 07/09/2025 2:21 AM EDT us Luanne Crawford MD LAB BLOOD ORDERABLES Final Result [facility] [address] [place] [address] * (ABNORMAL) POCT glucose meter (07/09/2025 1:22 AM EDT) POCT Glucose 271(H) 74 - 99 mg/dL 07/09/2025 1:24 AM EDT [facility] Comment:Accuracy of a glucos e [...] 07/09/2025 1:24 AM EDT [facility] Home Economist Consumer Service ID Cheyanne Briceño 07/09/2025 1:24 AM EDT [facility] Device ID [id number] 07/09/2025 1:24 AM EDT [facility] Specimen Type POC Arterial 07/09/2025 1:24 AM EDT [facility] Blood Arterial blood specimen / Unknown 07/09/2025 1:22 AM EDT 07/09/2025 1:24 AM EDT us Luanne Crawford MD LAB POINT OF CARE TEST DOCKED DEVICE UNSOLICITED RESULTS Final Result Performing Organization Address [facility] de Phone Number [facility] [address] [place] [address] * (ABNORMAL) POCT glucose meter (07/09/2025 12:06 [...] 07/09/2025 12:08 AM EDT [facility] Home Economist Consumer Service ID Cheyanne Briceño 07/09/2025 12:08 AM EDT [facility] Device ID [id number] 07/09/2025 12:08 AM EDT [facility] Specimen Type POC Arterial 07/09/2025 12:08 AM EDT [facility] Blood Arterial blood specimen / Unknown 07/09/2025 12:06 AM EDT 07/09/2025 12:08 AM EDT us Luanne Crawford MD LAB POINT OF CARE TEST DOCKED DEVICE UNSOLICITED RESULTS Final Result Performing Organization Address City/[facility] Co de Phone Number [facility] [address] [place] [address] * APTT (07/08/2025 11:53 PM EDT) aPTT 25 25 - 35 sec LAB COAGULATION METHOD 07/09/2025 12:32 AM EDT [facility] Blood Venous blood specimen / Unknown Venipuncture / Unknown 07/08/2025 11:53 PM EDT 07/08/2025 11:59 PM EDT Luanne Crawford MD LAB BLOOD ORDERABLES Final Result Performing Organization Address City/[facility]/ZIP Co de Phone Number [facility] [address] [place] [address] * (ABNORMAL) Protime-INR (07/08/2025 11:53 PM EDT) Prothrombin Time 15.2(H) 12.0 - 14.3 sec LAB COAGULATION METHOD 07/09/2025 12:32 AM EDT [facility] INR 1.2(H) 0.9 - 1.1 LAB COAGULATION METHOD 07/09/2025 12:32 AM EDT [facility] Blood Venous blood specimen / Unknown Venipuncture / Unknown 07/08/2025 11:53 PM EDT 07/08/2025 11:59 PM EDT Narrative [facility] - 07/09/2025 12:32 AM EDT OPTIMAL INR RANGES FOR PATIENT ON ORAL ANTICOAGULANT THERAPY Prevention of venous thromboembolism INR 2.0 to 3.0 In patients with heart disease: Atrial fibrillation INR 2.0 to 3.0 Valvular heart disease INR 2.0 to 3.0 Tissue heart valves INR 2.0 to 3.0 Mechanical prosthetic valves INR 2.5 to 3.5 Prevention of recurrent [place] INR 2.5 to 3.5 us Luanne Crawford MD LAB BLOOD ORDERABLES Final Result [facility] [address] [place] [address] * Phosphorus, Plasma (07/08/2025 11:52 PM EDT) Phosphorus, Plasma 3.6 2.5 - 4.5 mg/dL 07/09/2025 12:27 AM EDT [facility] Blood Venous blood specimen / Unknown Venipuncture / Unknown 07/08/2025 11:52 PM EDT 07/08/2025 11:59 PM EDT Luanne Crawford MD LAB BLOOD ORDERABLES Final Result Performing Organization Address [facility]/ZIP Co de Phone Number [facility] [address] [place] [address] * (ABNORMAL) Magnesium, Plasma (07/08/2025 11:52 PM EDT) Magnesium, Plasma 1.8(L) 1.9 - 2.4 mg/dL 07/09/2025 12:27 AM EDT [facility] Blood Venous blood specimen / Unknown Venipuncture / Unknown 07/08/2025 11:52 PM EDT 07/08/2025 11:59 PM EDT Luanne Crawford MD LAB BLOOD ORDERABLES Final Result Performing Organization Address City/[facility]/ZIP Co de Phone Number [facility] [address] [place] [address] * (ABNORMAL) Basic Metabolic Panel, Plasma (07/08/2025 11:52 PM EDT) Glucose, Plasma 314(H) 74 - 99 mg/dL 07/09/2025 12:27 AM EDT [facility] BUN, Plasma 32(H) 7 - 21 mg/dL 07/09/2025 12:27 AM EDT [facility] Creatinine, Plasma 1.80(H) 0.60 - 1.10 mg/dL 07/09/2025 12:27 AM EDT [facility] BUN/Creatinine Ratio 18 07/09/2025 12:27 AM EDT [facility] Sodium, Plasma 136 136 - 145 mmol/L 07/09/2025 12:27 AM EDT [facility] Potassium, Plasma 3.6 3.6 - 4.9 mmol/L 07/09/2025 12:27 AM EDT [facility] Chloride, Plasma 100 97 - 107 mmol/L 07/09/2025 12:27 AM EDT [facility] CO2, Plasma 23 22 - 29 mmol/L 07/09/2025 12:27 AM EDT [facility] Anion Gap 13 6 - 16 mmol/L 07/09/2025 12:27 AM EDT [facility] Total Calcium, Plasma 8.9 8.9 - 10.2 mg/dL 07/09/2025 12:27 AM EDT [facility] eGFRcr 34.2 mL/min/1.7 3m*2 07/09/2025 12:27 AM EDT [facility] Comment:Reported eGFRcr in m L/min/1.73m2 is based the CKD-EPI 2020 equation that does not use a race coefficient. Blood Venous blood specimen / Unknown Venipuncture / Unknown 07/08/2025 11:52 PM EDT 07/08/2025 11:59 PM EDT us Luanne Crawford MD LAB BLOOD ORDERABLES Final Result [facility] [address] [place] [address] * (ABNORMAL) CBC W/O Differential (07/08/2025 11:52 PM EDT) WBC Count 22.50(H) 3.70 - 10.30 10*3/uL LAB HEMATOLOGY METHOD 07/09/2025 12:16 AM EDT [facility] RBC Count 3.60(L) 3.90 - 5.20 10*6/uL LAB HEMATOLOGY METHOD 07/09/2025 12:16 AM EDT [facility] HGB 10.0(L) 11.2 - 15.7 g/dL LAB HEMATOLOGY METHOD 07/09/2025 12:16 AM EDT [facility] HCT 30.8(L) 34.0 - 45.0 % LAB HEMATOLOGY METHOD 07/09/2025 12:16 AM EDT [facility] Platelet Count 273 155 - 369 10*3/uL LAB HEMATOLOGY METHOD 07/09/2025 12:16 AM EDT [facility] MCV 86 79 - 98 fL LAB HEMATOLOGY METHOD 07/09/2025 12:16 AM EDT [facility] MCH 27.8 26.0 - 32.0 pg LAB HEMATOLOGY METHOD 07/09/2025 12:16 AM EDT [facility] MCHC 32.5 30.7 - 35.5 g/dL LAB HEMATOLOGY METHOD 07/09/2025 12:16 AM EDT [facility] RDW 16.9(H) 11.5 - 14.5 % LAB HEMATOLOGY METHOD 07/09/2025 12:16 AM EDT [facility] MPV 10.3 8.8 - 12.5 fL LAB HEMATOLOGY METHOD 07/09/2025 12:16 AM EDT [facility] nRBC 0.0 <=0.0 per 100 WBCs LAB HEMATOLOGY METHOD 07/09/2025 12:16 AM EDT [facility] Blood Venous blood specimen / Unknown Venipuncture / Unknown 07/08/2025 11:52 PM EDT 07/08/2025 11:59 PM EDT us Luanne Crawford MD LAB BLOOD ORDERABLES Final Result [facility] [address] [place] [address] * Richie auris Surveillance by PCR (07/08/2025 11:50 PM EDT) Richie auris PCR Result Not Detected Not Detected 07/09/2025 11:26 AM EDT [facility] Swab (Axilla and Groin) Non-blood Collection / Unknown 07/08/2025 11:50 PM EDT 07/09/2025 12:17 AM EDT Narrative [facility] - 07/09/2025 11:26 AM EDT This PCR assay was developed and its performance characteristics determined by [facility] as appropriate for clinical purposes. This assay has not been cleared or approved by the FDA, but is performed in a CLIA regulated laboratory that is qualified to perform high-complexity testing. us Luanne Crawford MD LAB MICROBIOLOGY - GENERAL ORDERABLES Final Result [facility] [address] [place] [address] * Multi Drug Resistance Test (07/08/2025 11:50 PM EDT) Culture No growth at day 1 07/10/2025 5:45 AM EDT [facility] Swab (Nares and Leann Rectal) Non-blood Collection / Unknown 07/08/2025 11:50 PM EDT 07/09/2025 12:17 AM EDT Narrative [facility] - 07/10/2025 5:45 AM EDT [...] GENERAL ORDERABLES Final Result Performing Organization Address [facility] Co de Phone Number [facility] [address] [place] [address] * (ABNORMAL) Blood gas, arterial (07/08/2025 11:50 PM EDT) pH, Arterial 7.27(L) 7.35 - 7.45 LAB HEMATOLOGY METHOD 07/09/2025 12:00 AM EDT [facility] pCO2, Arterial 53(H) 35 - 48 mmHg LAB HEMATOLOGY METHOD 07/09/2025 12:00 AM EDT [facility] pO2, Arterial 114(H) 83 - 108 mmHg LAB HEMATOLOGY METHOD 07/09/2025 12:00 AM EDT [facility] SO2, Measured, Arterial 99(H) 94 - 98 % LAB HEMATOLOGY METHOD 07/09/2025 12:00 AM EDT [facility] Base Excess, Arterial -3.1(L) -2.0 - 3.0 mmol/L LAB HEMATOLOGY METHOD 07/09/2025 12:00 AM EDT [facility] Bicarbonate, Calculated, Arterial 24 22 - 26 mmol/L LAB HEMATOLOGY METHOD 07/09/2025 12:00 AM EDT [facility] Hematocrit, Whole Blood 31.0(L) 34.0 - 45.0 % LAB HEMATOLOGY METHOD 07/09/2025 12:00 AM EDT [facility] Sodium, Whole Blood 134(L) 136 - 145 mmol/L LAB HEMATOLOGY METHOD 07/09/2025 12:00 AM EDT [facility] Potassium, Whole Blood 3.5(L) 3.6 - 4.9 mmol/L LAB HEMATOLOGY METHOD 07/09/2025 12:00 AM EDT [facility] Chloride, Whole Blood 101 97 - 107 mmol/L LAB HEMATOLOGY METHOD 07/09/2025 12:00 AM EDT [facility] Glucose, Whole Blood 315(H) 74 - 99 mg/dL LAB HEMATOLOGY METHOD 07/09/2025 12:00 AM EDT [facility] Ionized Calcium, Whole Blood 5.1 4.6 - 5.1 mg/dL LAB HEMATOLOGY METHOD 07/09/2025 12:00 AM EDT [facility] Lactate, Arterial, Whole Blood 1.7(H) 0.5 - 1.6 mmol/L LAB HEMATOLOGY METHOD 07/09/2025 12:00 AM EDT [facility] Blood Arterial blood specimen / Unknown Arterial Puncture / Unknown 07/08/2025 11:50 PM EDT 07/08/2025 11:59 PM EDT Richard Betts CRNA LAB BLOOD ORDERABLES Sarah l Result [facility] [address] [place] [address] * (ABNORMAL) POCT glucose meter (07/08/2025 11:49 PM EDT) [facility] POCT Glucose 316(H) 74 - 99 mg/dL 07/08/2025 11:50 PM EDT [facility] Comment:Accuracy of a glucos e [...] Comment 07/08/2025 11:50 PM EDT [facility] Home Economist Consumer Service ID Mary Cotto 07/08/2025 11:50 PM EDT [facility] Device ID [id number] 07/08/2025 11:50 PM EDT [facility] Specimen Type POC Arterial 07/08/2025 11:50 PM EDT [facility] Blood Arterial blood specimen / Unknown 07/08/2025 11:49 PM EDT 07/08/2025 11:50 PM EDT us Luanne Crawford MD LAB POINT OF CARE TEST DOCKED DEVICE UNSOLICITED RESULTS Final Result [facility] [address] [place] [address] * (ABNORMAL) Tissue Culture and Gram Stain (07/08/2025 10:48 PM EDT) Culture Light Growth 07/13/2025 1:13 PM EDT [facility] Culture 1+ Schaalia turicensis (formerly known as Actinomyces turicensis)(A) 07/13/2025 1:13 PM EDT [facility] Comment: The organism value for this result has been updated. These results have been appended to the previously preliminary verified report. This is a corrected result. Previous organism was Gram positive anthony on 07/11/2025 at 1052 EDT. Culture 1+ Staphylococcus hominis(A) 07/13/2025 1:13 PM EDT [facility] Comment: This isolate has been identified using the FDA Approved [employer] System The organism value for this result has been updated. These results have been appended to the previously preliminary verified report. Gram Stain Result Few Polymorphonuclear leukocytes(A) 07/13/2025 1:13 PM EDT [facility] Gram Stain Result Numerous Gram negative rods(A) 07/13/2025 1:13 PM EDT [facility] Gram Stain Result Few Gram positive cocci in pairs(A) 07/13/2025 1:13 PM EDT [facility] Tissue Topography unknown / Unknown 07/08/2025 10:48 PM EDT 07/09/2025 12:14 AM EDT Comment:Pre-op diagnosis: Necrotizing fasciitis (CMS/HCC) [M72.6] us Luanne Crawford MD LAB MICROBIOLOGY - GENERAL ORDERABLES Final Result [facility] [address] [place] [address] * Transfuse fresh frozen plasma (07/08/2025 10:35 PM EDT) Richard N Yongbang AUTOTRANSFUSIONIST BLOOD TRANSFUSION ORDERAB LES Final Result * Transfuse RBC (07/08/2025 10:29 PM EDT) Richard N Yongbang AUTOTRANSFUSIONIST BLOOD TRANSFUSION ORDERAB LES Final Result * (ABNORMAL) Blood gas panel, arterial (07/08/2025 10:08 PM EDT) pH, Arterial 7.28(L) 7.35 - 7.45 LAB HEMATOLOGY METHOD 07/08/2025 10:15 PM EDT [facility] pCO2, Arterial 50(H) 35 - 48 mmHg LAB HEMATOLOGY METHOD 07/08/2025 10:15 PM EDT [facility] pO2, Arterial 121(H) 83 - 108 mmHg LAB HEMATOLOGY METHOD 07/08/2025 10:15 PM EDT [facility] SO2, Measured, Arterial 99(H) 94 - 98 % LAB HEMATOLOGY METHOD 07/08/2025 10:15 PM EDT [facility] Base Excess, Arterial -3.6(L) -2.0 - 3.0 mmol/L LAB HEMATOLOGY METHOD 07/08/2025 10:15 PM EDT [facility] Bicarbonate, Calculated, Arterial 23 22 - 26 mmol/L LAB HEMATOLOGY METHOD 07/08/2025 10:15 PM EDT [facility] Hematocrit, Whole Blood 29.9(L) 34.0 - 45.0 % LAB HEMATOLOGY METHOD 07/08/2025 10:15 PM EDT [facility] Sodium, Whole Blood 133(L) 136 - 145 mmol/L LAB HEMATOLOGY METHOD 07/08/2025 10:15 PM EDT [facility] Potassium, Whole Blood 3.5(L) 3.6 - 4.9 mmol/L LAB HEMATOLOGY METHOD 07/08/2025 10:15 PM EDT [facility] Chloride, Whole Blood 101 97 - 107 mmol/L LAB HEMATOLOGY METHOD 07/08/2025 10:15 PM EDT [facility] Glucose, Whole Blood 351(H) 74 - 99 mg/dL LAB HEMATOLOGY METHOD 07/08/2025 10:15 PM EDT [facility] Ionized Calcium, Whole Blood 4.5(L) 4.6 - 5.1 mg/dL LAB HEMATOLOGY METHOD 07/08/2025 10:15 PM EDT [facility] Lactate, Arterial, Whole Blood 2.1(H) 0.5 - 1.6 mmol/L LAB HEMATOLOGY METHOD 07/08/2025 10:15 PM EDT [facility] Blood Arterial blood specimen / Unknown 07/08/2025 10:08 PM EDT 07/08/2025 10:14 PM EDT Comment:Pre-op diagnosis: Necrotizing fasciitis (CMS/HCC) [M72.6] us Luanne Crawford MD LAB BLOOD ORDERABLES Final Result [facility] [address] [place] [address] * Surgical Pathology Exam (07/08/2025 10:07 PM EDT) Case Report Surgical Pathology Case: [id number] Authorizing Provider: Luanne Crawford MD Collected: 07/08/20257 Ordering Location: [facility] A OPERATING ROOM Received: 07/09/2025 0740 Pathologist: Boaz Fernandez MD Specimens: A) - Other (specify site), saphenous vein B) - Other (specify site), right leg 07/10/2025 3:45 PM EDT [facility] Final Diagnosis A. SAPHENOUS VEIN SEGMENT, REMOVAL: - SCLEROTIC VEIN WITH ADVENTITIAL INFLAMMATION. B. RIGHT LEG TISSUE DEBRIDEMENT: - ACUTE NECROTIZING FASCIITIS OF SKIN AND SOFT TISSUE. 07/10/2025 3:45 PM EDT [facility] at 1545 EDT Clinical Information Necrotizing fasciitis; post recent boil self popped wound. 50 y.o. female with PMH of DM, hidradenitis supparativa, current smoker (1.5 ppd), UTI, depression, anxiety, asthma, HLD, Celiac disease, 07/10/2025 3:45 PM EDT [facility] Gross Description A. SAPHENOUS VEIN Specimen is received fresh and placed in formalin labeled saphenous vein. Received is a segment of vessel that measures 8.5 cm in length and up to 0.7 cm in diameter. Specimen is sectioned to reveal a pinpoint lumen with dried blood. [employer] sections are taken and submitted in cassette A1. Cold Time: 8h 56m Abhishek Baptiste MD B. RIGHT LEG Specimen is received fresh labeled right leg. Received are numerous fragments of skin and underlying soft tissue that measure in aggregate 25.0 x 25.0 x 7.5 cm. Scattered areas of skin and soft tissue notable for being green-black, foul-smelling and extensively necrotic. [employer] sections are taken and submitted in cassettes B1-B2. Abhishek Baptiste MD 07/10/2025 3:45 PM EDT [facility] Note: A resident was involved in the service. I attest I examined the relevant preparations for the specimens and confirmed the diagnosis or interpretation. 07/10/2025 3:45 PM EDT [facility] Tissue Topography unknown / Unknown 07/08/2025 10:07 PM EDT 07/09/2025 7:40 AM EDT Comment:Pre-op diagnosis: Necrotizing fasciitis (CMS/HCC) [M72.6] Tissue specimen (specimen) Topography unknown / Unknown 07/08/2025 10:49 PM EDT 07/09/2025 7:40 AM EDT Comment:Pre-op diagnosis: Necrotizing fasciitis (CMS/HCC) [M72.6] us Luanne Crawford MD LAB PATHOLOGY ORDERABLES F inal Result [facility] [address] [place] [address] * Transfuse fresh frozen plasma (07/08/2025 10:04 PM EDT) Richard N Yongbang AUTOTRANSFUSIONIST BLOOD TRANSFUSION ORDERAB LES Final Result * Transfuse fresh frozen plasma: 1 Units (07/08/2025 10:04 PM EDT) Richard N Yongbang AUTOTRANSFUSIONIST BLOOD TRANSFUSION ORDERAB LES Final Result * Transfuse RBC (07/08/2025 9:41 PM EDT) Richard N Yongbang AUTOTRANSFUSIONIST BLOOD TRANSFUSION ORDERAB LES Final Result * Transfuse RBC: 1 Units (07/08/2025 9:41 PM EDT) Richard N Yongbang AUTOTRANSFUSIONIST BLOOD TRANSFUSION ORDERAB LES Final Result * Prepare Fresh Frozen Plasma: 2 Units (07/08/2025 9:24 PM EDT) Product Code [id number] [facility] BLOO D BANK Dispense Status Transfused BLOOD BANK Blood Expiration Date [id number] BLOOD BANK Unit Number [id number] CH B LOOD BANK Product Blood Type 5100 BLOOD BANK Blood Type O+ CH BLOOD BANK Product Code [id number] CH BLOO D BANK Dispense Status Transfused BLOOD BANK Blood Expiration Date [id number] BLOOD BANK Unit Number [id number] CH B LOOD BANK Product Blood Type 5100 BLOOD BANK Blood Type O+ CH BLOOD BANK Blood Venous blood specimen / Unknown Richard N Obinnangbang AUTOTRANSFUSIONIST BLOOD BANK PRODUCT ORDERA BLES Final Result BLOOD BANK [address] [place] [address], * Prepare Leukocyte Reduced RBC: 2 Units (07/08/2025 9:23 PM EDT) Product Code [id number] BLOO D BANK Dispense Status Transfused BLOOD BANK Blood Expiration Date [id number] BLOOD BANK Unit Number [id number] [facility] B LOOD BANK Product Blood Type 5100 BLOOD BANK Blood Type O+ CH BLOOD BANK Crossmatch Compatible BLOOD BANK Product Code [id number] [facility] BLOO D BANK Dispense Status Transfused BLOOD BANK Blood Expiration Date [id number] BLOOD BANK Unit Number [id number] B LOOD BANK Product Blood Type 5100 BLOOD BANK Blood Type O+ BLOOD BANK Crossmatch Compatible BLOOD BANK Other Richard Betts [facility] BLOOD BANK PRODUCT ORDERA BLES Final Result BLOOD BANK [address] [place] [address], * (ABNORMAL) Abscess Culture and Gram Stain (07/08/2025 9:06 PM EDT) Culture Light Growth 07/13/2025 1:13 PM EDT [facility] [facility] Culture 1+ Mixed skin silvestre(A) 07/13/2025 1:13 PM EDT [facility] Comment: The organism value for [...] as Actinomyces turicensis)(A) 07/13/2025 1:13 PM EDT [facility] Comment: This result was determined by MALDI tof Mass spectrometry. This assay was developed and its performance characteristics determined by [facility] as appropriate for clinical purposes. [...] Gram positive cocci(A) 07/13/2025 1:13 PM EDT [facility] Gram Stain Result Few Gram variable rods(A) 07/13/2025 1:13 PM EDT [facility] Gram Stain Result Moderate Gram positive rods(A) 07/13/2025 1:13 PM EDT [facility] Gram Stain Result Numerous Gram negative rods(A) 07/13/2025 1:13 PM EDT [facility] Gram Stain Result Numerous Gram negative coccobacilli(A) 07/13/2025 1:13 PM EDT [facility] Gram Stain Result Moderate Polymorphonuclear leukocytes(A) 07/13/2025 1:13 PM EDT [facility] Swab Topography unknown / Unknown 07/08/2025 9:06 PM EDT 07/08/2025 9:15 PM EDT Comment:Pre-op diagnosis: Necrotizing fasciitis (CMS/HCC) [M72.6] us Luanne Crawford MD LAB MICROBIOLOGY - GENERAL ORDERABLES Final Result [facility] [address] [place] [address] * (ABNORMAL) POCT arterial blood gas gem (07/08/2025 8:51 PM EDT) pH, Arterial 7.28(L) 7.35 - 7.45 07/08/2025 8:53 PM EDT [facility] pCO2, Arterial 53(H) 35 - 48 mm Hg 07/08/2025 8:53 PM EDT [facility] pO2, Arterial 152(H) 83 - 108 mm Hg 07/08/2025 8:53 PM EDT [facility] SO2, Arterial 99(H) 94 - 98 % 07/08/2025 8:53 PM EDT [facility] Base Excess, Arterial -2.3(L) -2 - 3 mmol/L 07/08/2025 8:53 PM EDT [facility] HCO3, Arterial 24.9 22 - 26 mmol/L 07/08/2025 8:53 PM EDT [facility] Total Hemoglobin, Arterial, Whole Blood 10.9(L) 11.2 - 15.7 g/dL 07/08/2025 8:53 PM EDT [facility] Hematocrit, Arterial 33.0(L) 34.0 - 45.0 % 07/08/2025 8:53 PM EDT [facility] Sodium, Arterial 131(L) 136 - 145 mmol/L 07/08/2025 8:53 PM EDT [facility] Potassium, Arterial 3.8 3.6 - 4.9 mmol/L 07/08/2025 8:53 PM EDT [facility] Chloride, Whole Blood 98 97 - 107 mmol/L 07/08/2025 8:53 PM EDT [facility] Glucose, Arterial 418(H) 74 - 99 mg/dL 07/08/2025 8:53 PM EDT [facility] Ionized Calcium, Arterial 4.9 4.6 - 5.1 mg/dL 07/08/2025 8:53 PM EDT [facility] Lactate, Arterial 1.6 0.5 - 1.6 mmol/L 07/08/2025 8:53 PM EDT [facility] Body Temperature 37.0 Celsius 07/08/2025 8:53 PM EDT [facility] pH, Temp Corrected, Arterial 7.28(L) 7.35 - 7.45 07/08/2025 8:53 PM EDT [facility] pCO2, Temp Corrected, Arterial 53(H) 35 - 48 mm Hg 07/08/2025 8:53 PM EDT [facility] pO2, Temp Corrected, Arterial 152(H) 83 - 108 mm Hg 07/08/2025 8:53 PM EDT [facility] [employer] ID Yadi Goel 07/08/2025 8:53 PM EDT [facility] Blood, Arterial Whole blood specimen / Unknown 07/08/2025 8:51 PM EDT 07/08/2025 8:53 PM EDT us Luanne Crawford MD LAB POINT OF CARE TEST DOCKED DEVICE UNSOLICITED RESULTS Final Result [facility] [address] [place] [address] * ED HIV 1/2 Antibody/Antigen Screen w/Reflex to HIV 1/2 Differentiation (07/08/2025 6:14 PM EDT) HIV 1 & 2 Antibody/Antigen Screen Non Reactive Non Reactive 07/08/2025 7:12 PM EDT [facility] Comment:Screening for HIV 1 & 2 antibodies, and P24 antigen is NONREACTIVE. No confirmatory testing is required. Blood Venous blood specimen / Unknown Venipuncture / Unknown 07/08/2025 6:14 PM EDT 07/08/2025 6:30 PM EDT My Mckinney MD LAB BLOOD ORDERABLES Fi nal Result Performing Organization Address [facility] Co de Phone Number [facility] [address] [place] [address] * Hepatitis C Antibody - ED (07/08/2025 6:14 PM EDT) Pathologist [facility] Hepatitis C Antibody Negative Negative 07/08/2025 7:12 PM EDT [facility] Blood Venous blood specimen / Unknown Venipuncture / Unknown 07/08/2025 6:14 PM EDT 07/08/2025 6:30 PM EDT My Mckinney MD LAB BLOOD ORDERABLES Fi nal Result Performing Organization Address [facility] Phone Number [facility] [address] [place] [address] * (ABNORMAL) C-Reactive protein (07/08/2025 6:14 PM EDT) [facility] CRP, Plasma 462.2(H) <=8.0 mg/L 07/08/2025 7:18 PM EDT [facility] Blood Venous blood specimen / Unknown Venipuncture / Unknown 07/08/2025 6:14 PM EDT 07/08/2025 6:23 PM EDT Narrative [facility] - 07/08/2025 7:18 PM EDT This CRP test is appropriate for assessment of infection, systemic inflammation and/or tissue injury. To assess cardiovascular disease risk order high sensitivity CRP (CRPH). My Mckinney MD LAB BLOOD ORDERABLES Fi nal Result Performing Organization Address [facility] Co de Phone Number [facility] [address] [place] [address] * (ABNORMAL) Lactic acid, venous (07/08/2025 6:14 PM EDT) [facility] Lactate, Venous, Whole Blood 2.6(H) 0.5 - 2.2 mmol/L LAB HEMATOLOGY METHOD 07/08/2025 6:29 PM EDT [facility] Blood Venous blood specimen / Unknown Venipuncture / Unknown 07/08/2025 6:14 PM EDT 07/08/2025 6:23 PM EDT My Mckinney MD LAB BLOOD ORDERABLES Fi nal Result Performing Organization Address City/[facility]/ZIP Co de Phone Number [facility] [address] [place] [address] * Type and screen (07/08/2025 6:14 PM EDT) Pathologist [facility] ABO/Rh O Positive 07/08/2025 6:10 PM EDT [facility] Antibody Screen Negative 07/08/2025 6:10 PM EDT [facility] Specimen Expiration 07/11/2025 23:59 07/08/2025 6:10 PM EDT [facility] Blood Venous blood specimen / Unknown Venipuncture / Unknown 07/08/2025 6:14 PM EDT 07/08/2025 6:18 PM EDT My Mckinney MD LAB BLOOD BANK TEST ORD ERABLES Final Result Performing Organization Address [facility] Phone Number BLOOD BANK [address] [place] [address], * (ABNORMAL) PT-INR (07/08/2025 6:14 PM EDT) Pathologist [facility] Prothrombin Time 15.3(H) 12.0 - 14.3 sec 07/08/2025 6:56 PM EDT [facility] INR 1.2(H) 0.9 - 1.1 07/08/2025 6:56 PM EDT [facility] Blood Venous blood specimen / Unknown Venipuncture / Unknown 07/08/2025 6:14 PM EDT 07/08/2025 6:23 PM EDT Narrative [facility] - 07/08/2025 6:56 PM EDT OPTIMAL INR RANGES FOR PATIENT ON ORAL ANTICOAGULANT THERAPY Prevention of venous thromboembolism INR 2.0 to 3.0 In patients with heart disease: Atrial fibrillation INR 2.0 to 3.0 Valvular heart disease INR 2.0 to 3.0 Tissue heart valves INR 2.0 to 3.0 Mechanical prosthetic valves INR 2.5 to 3.5 Prevention of recurrent [place] INR 2.5 to 3.5 us My Mckinney MD LAB BLOOD ORDERABLES Fi nal Result [facility] [address] [place] [address] * (ABNORMAL) CBC w/diff (07/08/2025 6:14 PM EDT) WBC Count 26.15(H) 3.70 - 10.30 10*3/uL LAB HEMATOLOGY METHOD 07/08/2025 9:04 PM EDT [facility] RBC Count 3.97 3.90 - 5.20 10*6/uL LAB HEMATOLOGY METHOD 07/08/2025 9:04 PM EDT [facility] HGB 10.9(L) 11.2 - 15.7 g/dL LAB HEMATOLOGY METHOD 07/08/2025 9:04 PM EDT [facility] HCT 33.6(L) 34.0 - 45.0 % LAB HEMATOLOGY METHOD 07/08/2025 9:04 PM EDT [facility] Platelet Count 329 155 - 369 10*3/uL LAB HEMATOLOGY METHOD 07/08/2025 9:04 PM EDT [facility] MCV 85 79 - 98 fL LAB HEMATOLOGY METHOD 07/08/2025 9:04 PM EDT [facility] MCH 27.5 26.0 - 32.0 pg LAB HEMATOLOGY METHOD 07/08/2025 9:04 PM EDT [facility] MCHC 32.4 30.7 - 35.5 g/dL LAB HEMATOLOGY METHOD 07/08/2025 9:04 PM EDT [facility] RDW 17.3(H) 11.5 - 14.5 % LAB HEMATOLOGY METHOD 07/08/2025 9:04 PM EDT [facility] MPV 10.1 8.8 - 12.5 fL LAB HEMATOLOGY METHOD 07/08/2025 9:04 PM EDT [facility] nRBC 0.0 <=0.0 per 100 WBCs LAB HEMATOLOGY METHOD 07/08/2025 9:04 PM EDT [facility] Differential Type Automated LAB HEMATOLOGY METHOD 07/08/2025 9:04 PM EDT [facility] Neutrophils % 91 % LAB HEMATOLOGY METHOD 07/08/2025 9:04 PM EDT [facility] Lymphocytes % 4 % LAB HEMATOLOGY METHOD 07/08/2025 9:04 PM EDT [facility] Monocytes % 4 % LAB HEMATOLOGY METHOD 07/08/2025 9:04 PM EDT [facility] Eosinophils % 0 % LAB HEMATOLOGY METHOD 07/08/2025 9:04 PM EDT [facility] Basophils % 0 % LAB HEMATOLOGY METHOD 07/08/2025 9:04 PM EDT [facility] Immature Granulocytes % 1 % LAB HEMATOLOGY METHOD 07/08/2025 9:04 PM EDT [facility] Neutrophils Absolute 23.61(H) 1.60 - 6.10 10*3/uL LAB HEMATOLOGY METHOD 07/08/2025 9:04 PM EDT [facility] Lymphocytes Absolute 1.15(L) 1.20 - 3.90 10*3/uL LAB HEMATOLOGY METHOD 07/08/2025 9:04 PM EDT [facility] Monocytes Absolute 0.98(H) 0.30 - 0.90 10*3/uL LAB HEMATOLOGY METHOD 07/08/2025 9:04 PM EDT [facility] Eosinophils Absolute 0.04 0.00 - 0.50 10*3/uL LAB HEMATOLOGY METHOD 07/08/2025 9:04 PM EDT [facility] Basophils Absolute 0.09 0.00 - 0.10 10*3/uL LAB HEMATOLOGY METHOD 07/08/2025 9:04 PM EDT [facility] Immature Granulocytes Absolute 0.25(H) 0.00 - 0.06 10*3/uL LAB HEMATOLOGY METHOD 07/08/2025 9:04 PM EDT [facility] Blood Venous blood specimen / Unknown Venipuncture / Unknown 07/08/2025 6:14 PM EDT 07/08/2025 6:23 PM EDT Narrative [facility] - 07/08/2025 9:04 PM EDT Therapeutic decision making should be based on absolute values, rather than percentages. us My Mckinney MD LAB BLOOD ORDERABLES Fi nal Result [facility] [address] [place] [address] * (ABNORMAL) CMP (07/08/2025 6:14 PM EDT) Glucose, Plasma 411(H) 74 - 99 mg/dL 07/08/2025 7:18 PM EDT [facility] BUN, Plasma 33(H) 7 - 21 mg/dL 07/08/2025 7:18 PM EDT [facility] Creatinine, Plasma 1.99(H) 0.60 - 1.10 mg/dL 07/08/2025 7:18 PM EDT [facility] BUN/Creatinine Ratio 17 07/08/2025 7:18 PM EDT [facility] Sodium, Plasma 131(L) 136 - 145 mmol/L 07/08/2025 7:18 PM EDT [facility] Potassium, Plasma 4.0 3.6 - 4.9 mmol/L 07/08/2025 7:18 PM EDT [facility] Chloride, Plasma 93(L) 97 - 107 mmol/L 07/08/2025 7:18 PM EDT [facility] CO2, Plasma 22 22 - 29 mmol/L 07/08/2025 7:18 PM EDT [facility] Anion Gap 16 6 - 16 mmol/L 07/08/2025 7:18 PM EDT [facility] Total Calcium, Plasma 9.3 8.9 - 10.2 mg/dL 07/08/2025 7:18 PM EDT [facility] Total Protein 6.0(L) 6.3 - 7.9 g/dL 07/08/2025 7:18 PM EDT [facility] Albumin, Plasma 2.6(L) 3.5 - 5.2 g/dL 07/08/2025 7:18 PM EDT [facility] AST, Plasma 16 10 - 35 U/L 07/08/2025 7:18 PM EDT [facility] ALT, Plasma 15 10 - 35 U/L 07/08/2025 7:18 PM EDT [facility] Alkaline Phosphatase, Plasma 165(H) 35 - 104 U/L 07/08/2025 7:18 PM EDT [facility] Total Bilirubin, Plasma 0.4 0.2 - 1.1 mg/dL 07/08/2025 7:18 PM EDT [facility] eGFRcr 30.3 mL/min/1.7 3m*2 07/08/2025 7:18 PM EDT [facility] Comment:Reported eGFRcr in m L/min/1.73m2 is based the CKD-EPI 2020 equation that does not use a race coefficient. Blood Venous blood specimen / Unknown Venipuncture / Unknown 07/08/2025 6:14 PM EDT 07/08/2025 6:23 PM EDT My Mckinney MD LAB BLOOD ORDERABLES Fi nal Result [facility] [address] [place] [address] * [facility], E/M 30-74 MINUTES (07/08/2025 5:58 [...] and plan as documented. My Mckinney MD IN CLINIC/BEDSIDE ORDER LUANNE Final Result documented in this encounter Visit Diagnoses Diagnosis Necrotizing fasciitis ([facility]/HCC)- Primary Necrotizing fasciitis Necrotizing fasciitis (CMS/HCC) [...] respiratory failure Septic shock (CMS/HCC) Absence seizure ([facility]/HCC) 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 epilepsy Chronic obstructive pulmonary disease, unspecified HTN (hypertension), benign Essential hypertension, benign Depression Depressive disorder, not elsewhere classified Morbid (severe) obesity due to excess calories (CMS/HCC) Urge incontinence HLD (hyperlipidemia) Other and unspecified hyperlipidemia JOSEP (obstructive sleep apnea) Obstructive sleep apnea (adult) (pediatric) Postoperative pain Other acute postoperative pain Necrotizing fasciitis (CMS/HCC) Necrotizing fasciitis documented in [...] 20 mg, Oral, Nightly, First dose on Tomasa 07/11/25 at 2100, Until Discontinued, Routine Given 07/18/2025 [...] on Tue07/11/25 at 1100, Until Discontinued, Routine 100 (Given - Provider: Josi Ann RN)1658 (Given [...] Comment: no wv in place due to [facility] dc) polyethylene glycol (Miralax) packet 17 [...] - Comment: dc) PRN Medication Order 07/17/2025 07/18/202507/1907/19/2025 busPIRone (Buspar) tablet 15 mg 15 mg, [...] documented as of this encounter Care Teams Instructional Design Consultant Relationship Specialty Start Date End Date Yenny Dhillon APRN [address] [place] [address] PCP - General 07/22/23 documented as of this encounter
--- OUTSIDE RECORDS SUMMARY | 2025-07-14 14:41 | XMS_ITS | Encounter Summary ---
Author Organization Healthcare Address [address] [place] [address] Care Team Providers Care Web Systems Developer Name Role Phone Yenny Dhillon APRN Primary Care Provider [phone] Reason for Visit * Auth/Cert (Routine) Specialty Diagnoses / Procedures Referred By Bharati t Referred To Contact Diagnoses Necrotizing fasciitis (CMS/HCC) Necrotizing Fascitis Brittany Crawford MD [address] [place] [address] Phone: tel: fax: PAV A Inpatient [address] [place] [address] Phone: tel: Referral ID Status Reason Start Date Expiration Date Visits Re quested Visits Authorized [id number] 1 1 Encounter Details Date Type Department Care Team ([facility] st Contact Info) Description 07/14/2025 2:41 PM EDT Anesthesia Event PAV A OPERATING ROOM [address] [place] [address] Azul Eisenberg, KING, DNP 800 [facility] [address] [place] [address] Lynnette Thurston, DO [address] [place], [place] [id number] Anesthesia Record Procedure Summary Procedure Name Responsible [...] any time in the past 12 m [facility], were you homeless or living in a jail (including now)? No 07/15/2025 [facility] Utilities Answer Date Recorded In the [...] and Staff Patient location during procedure: OR DIGITAL MEDIA REPRESENTATIVE: Azul Eisenberg CRNA, DNP Performed: KING Patient [...] 2:21 PM EDT Anesthesiologist: Sharif Taylor MD DIGITAL MEDIA REPRESENTATIVE: Azul Eisenberg CRNA, DNP Patient: Ashley Brown HPI Ashley Brown is a 50 y.o. female with body mass index is 56.12 kg/m??. who presents with Necrotizing fasciitis (CMS/HCC), now for Debridement, possible partial closure of right groin wound (Right) Procedure Information Date/Time: 07/14/25 1405 Procedure: Debridement, possible partial closure of right groin wound (Right) - [facility] [place] [facility] Surgeons: Anne Franco MD Relevant Problems [...] Component Value Date PHART 7.28 (L) 07/08/2025 [id number] 53 (H) 07/08/2025 PO2ART 152 (H) 07/08/2025 SO2ART 99 (H) 07/08/2025 BEART -2.3 (L) 07/08/2025 [id number] 28 (H) 07/10/2025 HCTART 33.0 (L) 07/08/2025 SODIUMART 131 (L) 07/08/2025 POTASSIUMART 3.8 07/08/2025 POCTCL 98 07/08/2025 POCGLU 418 (H) 07/08/2025 IONCALART 4.9 07/08/2025 LACTATE 1.7 (H) 07/10/2025 Lab Results Component Value Date PH 7.30 (L) 07/10/2025 PCO2 57 (H) 07/10/2025 PO2 80 (L) 07/10/2025 [id number] 95 07/10/2025 BASEEXC 1.1 07/10/2025 HCTSYR 31.5 (L) 07/10/2025 KSYR 3.9 07/10/2025 CLSYR 103 07/10/2025 GLUSYR 206 (H) 07/10/2025 CAION 5.0 07/10/2025 LACTATE 1.7 (H) 07/10/2025 ECHO No echocardiogram results found for the past 12 months PFTs No results found for: ZOD6MMJ , UDC1MFZR , EAP9APW , FVCPRED BP Readings from Last 5 Encounters: 07/14/25 120/75 07/08/25 97/56 02/29/24 101/66 08/31/23 98/56 Physical Exam Airway Mallampati: II Cardiovascular Rhythm: regular Rate: normal Dental Pulmonary Breath sounds clear to auscultation Neurological Skin Musculoskeletal Extremities Anesthesia Plan ASA 3 Plan was reviewed with: DIGITAL MEDIA REPRESENTATIVE Anesthesia technique(s) discussed with the patient/family: general [...] Anxiety Asthma Carpal tunnel syndrome Depression Diabetes ([facility]/HCC) H/O absence seizures Hidradenitis High cholesterol Hypertension [...] Visit Medical Office Building Urology [address], [address] [place] [address] Marj Matamoros E, PSYCHIATRIC SPECIALIST [address] [place] [address] 08/20/2025 10:30 AM EDT Office Visit [facility] General Surgery [address] [place] [phone] Lilliana Morfin, PSYCHIATRIC SPECIALIST [address] [place] [address] documented as of this encounter Procedures Procedure [...] and Staff Patient location during procedure: OR DIGITAL MEDIA REPRESENTATIVE: Azul Eisenberg CRNA, DNP Performed: DIGITAL MEDIA REPRESENTATIVE Patient Condition Indications for airway management: anesthesia [...] documented as of this encounter Care Teams Web Systems Developer Relationship Specialty Start Date End Date Yenny Dhillon APRN [address] [place] [address] PCP - General 07/22/23 documented as of this encounter
--- OUTSIDE RECORDS SUMMARY | 2025-08-03 17:34 | XMS_ITS | Encounter Summary ---
Author Organization Healthcare Address [address] [place] [address] Care Team Providers Care Bowling Floor Desk Clerk Name Role Phone Yenny Dhillon APRN Primary Care Provider [phone] Reason for Visit * Reason Comments Wound Check Encounter Details Date Type Department Care Team ([facility] st Contact Info) Description 08/03/2025 5:34 PM EDT - 08/03/2025 9:28 PM EDT Emergency [facility] Emergency Department [address] [place] [address] Luis Cotto MD [address] [place] [address] Necrotizing fasciitis (CMS/HCC) (Primary Dx); Encounter for [...] any time in the past 12 m [facility], were you homeless or living in a care home (including now)? No 07/15/2025 [facility] Utilities Answer Date Recorded In the past 12 months has th e [employer], gas, oil, or water company threatened to [...] result, infection, nerve damage and incomplete drainage [place] protocol: Patient identity confirmed: Verbally with patient [...] suppurativa, tobacco use, recurrent UTI's, presenting to [facility] on 08/03/2025 with need for a wound [...] (Chronic) Overview Addendum 07/11/2025 9:29 AM by Garbiel Segovia -Pt still requiring pressure support on [...] incontinence (Chronic) Stress incontinence DM (diabetes mellitus) ([facility]) (Chronic) Overview Addendum 07/09/2025 4:11 PM by Lidia Ellis MD - Patient hyperglycemic, up to 300s. - Insulin drip per protocol. Hidradenitis (Chronic) Absence seizure ([facility]) (Chronic) Overview Addendum 07/11/2025 9:20 AM by [...] - Improving, continue to monitor Septic shock ([facility]) Overview Addendum 07/12/2025 1:55 PM by Gabriel [...] in ED Course. 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, [address] [place] [id number] Marj Matamoros E, SULPHATE TESTER [address] [place] [address] 08/20/2025 10:30 AM EDT Office Visit [facility] General Surgery [address] [place] [address] Shelbie Lilliana E, SULPHATE TESTER [address] [place] [address] documented as of this encounter Procedures Procedure Name Priority Date/Time Associated Diagnosis Comments PBPROC Routine 08/03/2025 8:40 PM EDT Necrotizing fasciitis [...] result, infection, nerve damage and incomplete drainage [place] protocol: Patient identity confirmed: Verbally with patient Procedure details: Indications: open wounds Wound location: Leg Leg location: R upper leg Wound age (days): >14 Dressing: Packing/drain action: packing change Packing material: Iodoform 1/2 inch Dressing applied: Gelfoam large Post-procedure details: Procedure completion: Tolerated Comments: Wound vac replaced with 5 pieces total - to patient's home vac and canister Ghanshyam K Isaac DO IN CLINIC/BEDSIDE ORDERABLES F inal Result [...] documented as of this encounter Care Teams Bowling Floor Desk Clerk Relationship Specialty Start Date End Date Yenny Dhillon APRN [address] [place] [address] PCP - General 07/22/23 documented as of this encounter
--- OUTSIDE RECORDS SUMMARY | 2025-08-07 05:00 | XMS_ITS | Continuity of Care Document ---
Author Organization [facility] Address [address] [place] [address] Phone Care Team Providers Care Custom Shoemaker Name Role Phone Alejo MSN, FUGITIVE DETECTIVE, Yenny Unavailable Unavai lable Allergies, Adverse Reactions, Alerts Substance Reaction Status Criticality BUPROPION HCL Anaphylaxis(moderate) Active High DIAZEPAM Abnormal behavior Active No Informa tion ALPRAZOLAM Abnormal behavior Active No Informa tion DOXYCYCLINE Hives / Skin Rash(moderate) Active No Information ASPIRIN Hives / Skin Rash(moderate) Active No Information PENICILLIN Hives / Skin Rash(moderate) Active No Information Medications Medication Instructions Dosage Effective Dates (start - stop) Status Comments Linzess 72 MCG Oral Capsule TAKE 1 [...] nostril as needed 50-100 MCG - Active oxycodone 10 mg tablet TAKE 1 TABLET EVERY 6 HOURS NEEDED FOR PAIN. - Active oxycodone 5 mg tablet TAKE 1 TABLET EVERY TUESDAY, TUESDAY AND TUESDAY. - Active oxybutynin chloride 5 mg tablet take 1 tablet by oral route 2 times every day 5 MG - Active Procedures Procedure Date OFFICE/OUTPATIENT VISIT, [facility] Advance Directives Directive Yes / No Effective Date File Name No Information Encounters Encounter Description Practice Location Reason(s) For Visit Diagnoses Date Provider OFFICE/OUTPA TIENT VISIT, [facility], [address] [place], [address], [place] tel:[phone] ED/hospital f/u (chief complaint) Hidradenitis suppurativaNicotine dependence, cigarettes, uncomplicatedBody mass index [BMI] 45.0-49.9, adultEssential (primary) hypertension 5 Alejo Ramon. [address] [place] [address], [id number] , . tel: [facility], [address] [place] [address], [facility], tel:[phone] [facility] No Information 5 Dhillon Yenny. [address], [place], [id number] , . tel: [facility], [address] [place] [address], [facility], [place] tel:[phone] [facility] Fasting Labs (chief complaint) Essential (primary) hypertension 5 Dhillon Yenny. [address], [place], [id number] , [place]. tel: [facility], [address] [place] [address], [facility], tel:[phone] [facility] No Information 0 5 Dhillon Yenny. [address], [place], [id number] , [place]. tel: [facility], [address] [place] [address], [facility], tel:[phone] [facility] No Information 0 5 Dhillon Yenny. [address], [place], [id number] , [place]. tel: [facility], [address] [place] [address], [facility], [place] tel:[phone] [facility] No Information 0 5 Dhillon Yenny. [address], [place], [id number] , [place]. tel: [facility], [address] [place] [address], [facility], [place] tel:[phone] [facility] Lumps on Leg (chief complaint) Body mass index [BMI] 50.0-59.9, adultDisorder of vein, unspecified 5 Dhillon Yenny. [address], [place], [id number] , [place]. tel: [phone] [facility], [address] [place] [address], [facility], tel:[phone] [facility] No Information Dhillon Yenny. [address], [place], [id number] , [place]. tel: [phone] [facility], [address] [place] [address], [facility], tel:[phone] [facility] f/u on labs (chief complaint) Encntr screen mammogram for malignant neoplasm of breastAbdominal painEssential (primary) hypertensionHyperli pidemiaNicotine dependence, cigarettes, uncomplicatedObesit yType 2 diabetes mellitus w/ diabetic neuropathyVitamin B12 deficiencyVitamin D deficiencyUTIAcute upper respiratory infection, unspecifiedBody mass index [BMI] 50.0-59.9, adult Dhillon Yenny. [address], [place], [id number] , [place]. tel: [phone] [facility], [address] [place] [address], [facility], [place] tel:[phone] [facility] complex f/u (chief complaint)Prepar e (chief complaint)Depres jaydon Screening (chief complaint) Extreme povertyAsthmaDepres sionEssential (primary) hypertensionNicotin e dependence, cigarettes, uncomplicatedObesit yType 2 diabetes mellitus w/ diabetic neuropathyAbdominal painEncounter for screening for depression Dhillon Yenny. [address], [place], [id number] , [place]. tel: [phone] [facility], [address] [place] [address], [facility], tel:[phone] [facility] Medication refills (chief complaint) Essential (primary) hypertensionBody mass index [BMI] 50.0-59.9, adultChronic constipationDepress ionAsthmaNicotine dependence, cigarettes, uncomplicatedObesit yType 2 diabetes mellitus w/ diabetic neuropathyVitamin B12 deficiencyVitamin D deficiency 4 Dhillon Yenny. [address], [place], [id number] , [place]. tel:[phone] [facility], [address] [place] [address], [facility], tel:[phone] [facility] routine lab collection (chief complaint) No Information 4 Alejo Oliveiraissa. [address], [place], [id number] , [place]. tel:[phone] [facility], [address] [place] [address], [facility], tel:[phone] [facility] LOWER BACK PAIN (chief complaint) Body mass index [BMI] 45.0-49.9, adultSciatica, right sideLow back painVitamin B12 deficiency 4 Dhillon Yenny. [address], [place], [id number] , [place]. tel:[phone] [facility], [address] [place] [address], [facility], [place] tel:[phone] [facility] f/u labs (chief complaint) Vitamin B12 deficiencyBody mass index [BMI] 45.0-49.9, adultEssential (primary) hypertensionHyperli pidemiaMemory lossNicotine dependence, cigarettes, uncomplicatedObesit yType 2 diabetes mellitus w/ diabetic neuropathyVitamin D deficiencyEncntr screen mammogram for malignant neoplasm of breast 4 Dhillon Yenny. [address], [place], [id number] , [place]. tel: [phone] [facility], [address] [place] [address], [facility], tel:[phone] [facility] Fasting Labs (chief complaint) Essential (primary) hypertension 4 Dhillon Yenny. [address], [place], [address] , [place]. tel: [phone] [facility], [address] [place] [address], [facility], [place] tel:[phone] [facility] B12 injection (chief complaint) Vitamin B12 deficiency 4 Dhillon Yenny. [address], [place], [id number] , [place]. tel: [phone] [facility], [address] [place] [address], [facility], tel:[phone] [facility] Blood in stool (chief complaint)eructa tion (chief complaint)back pain f/u MRII (chief complaint) Anxiety disorder, unspecifiedAsthmaEs sential (primary) hypertensionLow back painExtreme povertyBody mass index [BMI] 45.0-49.9, adultEructation 4 Dhillon Yenny. [address], [place], [address] , [place]. tel: [phone] [facility], [address] [place] [address], [facility], [place] tel:[phone] [facility] B12 INJECTION (chief complaint) Vitamin B12 deficiency 4 Dhillon Yenny. [address], [place], [address] , [place]. tel: [phone] [facility], [address] [place] [address], [facility], [place] tel:[phone] [facility] f/u on labs (chief complaint) Vitamin B12 deficiencyBody mass index [BMI] 45.0-49.9, adultLow back painType 2 diabetes mellitus w/ diabetic neuropathyHyperlipi demiaNicotine dependence, cigarettes, uncomplicated 4 Dhillon Yenny. [address], [place], [address] , . tel: [phone] [facility], [address] [place] [address], [facility], tel:[phone] [facility] [place] FASTING LABS (chief complaint) Essential (primary) hypertension 4 Dhillon Yenny. [address], [place], [address] , [place]. tel: [phone] [facility], [address] [place] [address], [facility], tel:[phone] [facility] [place] f/u back pain (chief complaint) Low back painNicotine dependence, cigarettes, uncomplicatedSciati ca, right sideVitamin B12 deficiencyBody mass index [BMI] 45.0-49.9, adultAcute serous otitis media, bilateral 3 Dhillon Yenny. [address], [place], [address] , [place]. tel: [phone] [facility], [address] [place] [address], [facility], tel:[phone] [facility] [place] back pain (chief complaint)other (chief complaint) Sciatica, right sideLow back painBody mass index [BMI] 45.0-49.9, adult 3 Dhillon Yenny. [address], [place], [address] , [place]. tel: [phone] [facility], [address] [place] [address], [facility], tel:[phone] [facility] [place] B12 INJECTION (chief complaint) Vitamin B12 deficiency 3 Dhillon Yenny. [address], [place], [address] , [place]. tel:[phone] [facility], [address] [place] [address], [facility], tel:[phone] [facility] [place] B12 INJECTION (chief complaint) Vitamin B12 deficiency 3 Dhillon Yenny. [address], [place], [address] , [place]. tel: [phone] [facility], [address] [place] [address], [facility], [place] tel:[phone] [facility] [place] follow up labs (chief complaint) Body mass index [BMI] 50.0-59.9, adultType 2 diabetes mellitus w/ diabetic neuropathyVitamin B12 deficiencyEssential (primary) hypertensionDepress ionAsthmaNicotine dependence, cigarettes, uncomplicated 3 Dhillon Yenny. [address], [place], [address] , [place]. tel: [phone] [facility], [address] [place] [address], [facility], [place] tel:[phone] [facility] fasting labs (chief complaint) Memory lossVitamin B12 deficiencyNicotine dependence, cigarettes, uncomplicatedBody mass index [BMI] 50.0-59.9, adult Sep-2 3 Dhillon Yenny. [address], [place], [id number] , [place]. tel:[phone] [facility], [address] [place] [address], [facility], [place] tel:[phone] [facility] nocturia (chief complaint) NocturiaStress incontinence (female) (male)Urinary urgencyUTIBody mass index [BMI] 50.0-59.9, adult Sep-0 3 Dhillon Yenny. [address], [place], [address] , [place]. tel:[phone] [facility], [address] [place] [address], [facility], tel:[phone] [facility] [place] INJECTION (chief complaint) Vitamin B12 deficiency 3 Dhillon Yenny. [address], [place], [address] , [place]. tel:[phone] [facility], [address] [place] [address], [facility], [place] tel:[phone] [facility] [place] Follow up from Hospitalization (chief complaint) Body mass index [BMI] 50.0-59.9, adultAcute kidney injuryDehydrationCh ronic constipationEssenti al (primary) hypertension 3 Dhillon Yenny. [address] [place] [address], [id number] , [place]. tel: [phone] [facility], [address] [place] [address], [facility], tel:[phone] [facility] Injection (chief complaint) Vitamin B12 deficiency 3 Dhillon Yenny. [address] [place] [address], [id number] , [place]. tel: [phone] [facility], [address] [place] [address], [facility], [place] tel:[phone] [facility] FOLLOW UP ON LABS (chief complaint) Vitamin B12 deficiencyBody mass index [BMI] 50.0-59.9, adultAnxiety disorder, unspecifiedAsthmaEs sential (primary) hypertensionMorbid (severe) obesity due to excess caloriesNicotine dependence, cigarettes, uncomplicatedPain in left kneePain in right kneeType 2 diabetes mellitus w/ diabetic neuropathy 3 Dhillon Yenny. [address], [place], [id number] , . tel:[phone] [facility], [address] [place] [address], [facility], tel:[phone] [facility] [place] FASTING LABS (chief complaint)B12 INJECTION (chief complaint) Essential (primary) hypertensionDeficie ncy of other specified B group vitamins 3 Dhillon Yenny. [address], [place], [id number] , . tel: [phone] [facility], [address] [place] [address], [facility], tel:[phone] [facility] [place] complex f/u (chief complaint) Vitamin B12 deficiencyType 2 diabetes mellitus w/ diabetic neuropathyObesityNi cotine dependence, cigarettes, uncomplicatedHidrad enitis suppurativaEssentia l (primary) hypertensionAsthmaE ncounter for other preprocedural examination 3 Dhillon Yenny. [address], [place], [address] , . tel: [phone] [facility], [address] [place] [address], [facility], tel:[phone] [facility] [place] Leg wound (chief complaint)Discus s diabetic shoes. (chief complaint) Vitamin B12 deficiencyType 2 diabetes mellitus w/ diabetic neuropathyBody mass index [BMI] 50.0-59.9, adultHidradenitis suppurativaEssentia l (primary) hypertensionCutaneo us abscess Apr-0 3 Dhillon Yenny. [address], [place], [id number] , [place]. tel:[phone] [facility], [address] [place] [address], [facility], [place] tel:[phone] [facility] [place] B12 injection (chief complaint) Vitamin B12 deficiency Jan- 3 Dhillon Yenny. [address], [place], [address] , [place]. tel: [phone] [facility], [address] [place] [address], [address], [place] tel:[phone] [facility] follow up (chief complaint) Vitamin B12 deficiency Jan- 3 Dhillon Yenny. [address], [place], [address] , [place]. tel: [phone] [facility], [address] [place] [address], [facility], [place] tel:[phone] [facility] [place] b12 # 3 of 6 (chief complaint) Vitamin B12 deficiency Jan- 3 Dhillon Yenny. [address], [place], [address] , [place]. tel: [phone] [facility], [address] [place] [address], [facility], [place] tel:[phone] [facility] [place] follow up on labs (chief complaint) Vitamin B12 deficiencyBody mass index [BMI] 50.0-59.9, adultPain in left kneePain in right kneeAcute upper respiratory infection, unspecifiedParesthe kalpesh of skinObesityDepressi onChronic constipationPrediab etesNicotine dependence, cigarettes, uncomplicated Jan-0 - 3 Dhillon Yenny. [address], [place], [address] , [place]. tel: [phone] [facility], [address] [place] [address], [address], [place] tel:[phone] [facility] [place] b12 # 1 of 6 (chief complaint) Vitamin B12 deficiency Fe- 3 Dhillon Yenny. [address], [place], [address] , [place]. tel: [phone] [facility], [address] [place] [address], [address], [place] tel:[phone] [facility] Establish care (chief complaint) Encounter for screening for depressionEncounter for screening examination for other mental health and behavioral disordersAnxiety disorder, unspecifiedDepressi onAsthmaVitamin D deficiencyEssential (primary) hypertensionPrediab etesChronic constipationBody mass index [BMI] 50.0-59.9, adultNicotine dependence, cigarettes, uncomplicatedMorbid (severe) obesity due to excess calories 3 Alejo Ramon. [address], [place], [id number] , . tel: [phone] Family History Family Member Type Diagnosis Age [...] Record Payers Payer name Insurance type Covered constitution party ID Authoriza tion(s) [facility]- Medicaid [employer] CI [id number] [facility]- Medicaid [employer] are Wrap Pay ZZ [id number] [facility]- Covered Under Juan Luis CI [id number] Hc- Covered Under Juan Luis CI [id number] [facility]- Covered Under [place] Luis CI [id number] Hc- Covered Under [place] Luis CI [id number] Social History Type Description Quantity Date Captured Comments Alcohol Use Details whiskey 2 glasses occasionally Caffeine Use Details energy drinks and soda > 6 cups per day Tobacco Use Status Heavy cigarette smoker (20-39 cigs/day) Smoking Status Heavy tobacco smoker Smoking Tobacco Use Details Cigarette: Age Started: 12, Cigarette: 1.5 Packs per day, Sex Female Sexual Orientation Straight or heterosexual Gender Identity Female Vital Signs Date / Time: Height Weight BMI Pulse Rate Blood Pressure Temperature Respiratory Rate Body Surface Area Head Circumference Head Circ. Percentile Wt./Eusebio. Percentile BMI percentile Pulse Ox Inhaled Ox 9:48 AM 70.00 in 156.399 kg (344.80 lbs) 49.4 7 kg/m eter (2) 97 /min 112/75 mm[Hg] 98.60 F 18 /min 98 % Chief Complaint And Reason For Visit From encounter dated '08/07/2025 09:00'. ED/hospital f/u (chief complaint). Description: Cristina is here today for ED/Hospital follow up. 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 She had attempted to yuli a wound/boil at home and the wound became infected. She was in the hospital became septic and required two surgeries for debridement.Wound vac was replaced at ER visit. Today, wound appears to be doing well. Drainage is still around 4 canisters daily, however she states insurance will only pay for 15 canisters monthly. She will follow up w/ wound care today at 1 at [facility].She does appear pale today, but is up ambulating with rolling walker. Catheter still in place with cloudy yellow urine, and wound vac in appropriate place functioning will.Her Valsartan/HCTZ was paused during hospitalization.We will continue to hold this at this time. Bp today 112/75.31lb weight loss since 06/17/25 Plan Of Treatment Date Type Action Status Goal GFR. Due on due Goal Dilated eye exam. Due on March due Goal Foot exam. Due on due Goal Taking Statin Me dication. Due on due Goal Hep B (). Due on due Goal Lipid panel. Due on due Goal Hepatitis C Screening due Goal Pap/HPV testing. Due on due Goal PAP. Due on due Goal Drug Abuse Scree davy Test (DAST-10). Due on due Goal Unhealthy drug use screening due Goal HIV screen due Goal Diabetes screening. Due on due Goal TSH. Due on due Goal Urine microalbumin. Due on due Goal Vitamin B12. Due on due Goal Obtain Height, W eight, and BMI. Due on due Goal Hemoglobin A1C. Due on due Goal ASCVD 10 year risk. Due on due Goal CBC. Due on due Goal Follow up Plan f or abnormal BMI (Less than 18.5, greater than 25). Due on due Goal Tobacco Use Scre ening. Due on due Goal Vitamin D. Due on due Goal Generalized Anxi ety Disorder - 7 (SONDRA-7). Due on due Goal Tobacco Use Cess ation Counseling. Due on due Goal Dental exam. Due on due Goal Tobacco screening. Due on Oc due Goal CMP. Due on due Goal Hemoglobin (Pree tea/HR 9 months). Due on due Goal HPV testing. Due on due Goal Urinalysis due Goal ECG due Goal Pneumococcal vac cine. Due on due Goal Obtain blood Pre ssure. Due on due Goal Depression scree davy. Due on due Goal Hematocrit/Hemog lobin. Due on due Goal Lifestyle education regardin g diet completed Goal Obtain Height, W eight, and BMI. [...] Use Scre ening. Due on due Goal Urine microalbumin. Due [...] due Goal Hepatitis C Screening due Goal Obtain blood Pre ssure. Due on due Goal Depression scree davy. Due on due Goal Hematocrit/Hemog lobin. Due on due Goal Hemoglobin (Pree tea/HR 9 months). Due on due Goal Pneumococcal vac cine. Due on due Goal HPV testing. Due on due Goal ECG due Goal Dental exam. Due on due Goal GFR. Due on due Goal ASCVD 10 year risk. Due on due Goal Hep B (1st). Due on due Goal ECG due Goal Dental exam. Due on due Goal Hemoglobin A1C. Due on due Goal GFR. Due on due Goal ASCVD 10 year risk. Due on M due Goal Pneumococcal vac cine. Due on [...] on due Goal Urine microalbumin. Due on M due Goal Drug Abuse Scree davy Test [...] Goal Tobacco screening. Due on due Goal Lipid 9-11 y due Goal Hematocrit/Hemog lobin. Due on due Goal Lipid 17-20 y due Goal Foot exam. Due on due Goal Lipid panel. Due on due Goal Diabetes screening. Due on due Goal PAP. Due on due Goal Hep B (). Due on due Goal Hemoglobin A1C. Due on due Goal ASCVD 10 year risk. Due on due Goal Tobacco screening. Due on due Goal Tobacco Use Cess ation Counseling. Due on due Goal Dilated eye exam. Due on March due Goal CMP. Due on due Goal Vitamin D. Due on due Goal Pap/HPV testing. Due on due Goal Dental exam. Due on due Goal Taking Statin Me dication. Due on due Goal Urine microalbumin. Due on due Goal GFR. Due on due Goal Unhealthy drug use screening due Goal ECG due Goal Hepatitis C Screening due Goal Generalized Anxi ety Disorder - 7 (SONDRA-7). Due on due Goal Tobacco Use Scre ening. Due on due Goal Drug Abuse Scree [...] Due on due Goal Urinalysis due Goal Depression scree davy. Due on due Goal Hemoglobin (Pree eta/HR 9 months). Due on due Goal Hematocrit/Hemog lobin. Due on due Goal ASCVD 10 year [...] Lifestyle education regardin g diet completed Goal Obtain blood Pre ssure. Due on due Goal Urinalysis due Goal Taking Statin Me dication. Due on due Goal Dilated eye exam. Due on March due Goal Dental exam. Due on due [...] (SONDRA-7). Due on due Goal Hep B (). Due on due Goal Hemoglobin A1C. Due [...] Vitamin B12. Due on 026 due Goal Vitamin D. Due on due [...] Hep B (1st). Due on due Goal Obtain Height, W [...] Lifestyle education regardin g diet completed Goal Dental exam. Due on due Goal Urinalysis due Goal Hep B (). Due on due Goal Taking Statin Me dication. Due on due Goal Hemoglobin A1C. Due on due Goal Generalized Anxi ety Disorder - 7 (SONDRA-7). Due on due Goal ASCVD 10 year risk. Due on due Goal Hepatitis C Screening due Goal CMP. Due on due Goal Tobacco Use Scre ening. Due on due Goal Vitamin D. Due on due Goal Tobacco Use Cess ation Counseling. Due on due Goal Colonoscopy. Due on due Goal Foot exam. Due on due Goal GFR. Due on due Goal Unhealthy drug use screening due Goal Dilated eye exam. Due on March due Goal Diabetes screening. Due on A due Goal Urine microalbumin. Due on A due Goal Lipid panel. Due on 029 due Goal HIV screen due Goal Mammogram. Due on due Goal CBC. Due on due Goal Vitamin B12. Due on 025 due Goal HPV testing. Due on 024 due Goal Follow up Plan f or abnormal BMI (Less than 18.5, greater than 25). Due on due Goal Pneumococcal vac cine. Due on due Goal PAP. Due on due Goal Drug Abuse Scree davy Test (DAST-10). Due on due Goal ECG due Goal Pap/HPV testing. Due on due Goal Obtain blood Pre ssure. Due on due Goal Influenza vaccine. Due on due Goal TSH. Due on due Goal Obtain Height, W eight, and BMI. Due on due Goal Depression scree davy. Due on due Goal Foot exam. Due on due Goal HIV screen due Goal Dilated eye exam. Due on March due Goal Urine microalbumin. Due on A [...] Goal Dental exam. Due on due Goal Unhealthy drug use screening due Goal Diabetes screening. Due on A due Goal Tobacco Use Cess ation Counseling. Due on due Goal Hepatitis C Screening due Goal Influenza vaccine. Due on due Goal Tobacco Use Scre ening. Due on due Goal Mammogram. Due on due Goal Drug Abuse Scree davy Test (DAST-10). Due on due Goal Vitamin B12. Due on due Goal TSH. Due on due Goal Pap/HPV testing. Due on due Goal HPV testing. Due on due Goal Follow up Plan f or abnormal BMI (Less than 18.5, greater than 25). Due on due Goal CBC. Due on due Goal CMP. Due on due Goal Obtain Height, W eight, and BMI. Due on due Goal PAP. Due on due Goal Urinalysis due Goal Depression scree davy. Due on due Goal Obtain blood Pre ssure. Due on due Goal Pneumococcal vac cine. Due on due Goal ECG due Goal Lipid panel. Due on due Goal Lifestyle education regardin g diet completed Goal Tobacco cessation counseling completed Goal Urinalysis due Goal ASCVD 10 year [...] Goal Foot exam. Due on due Goal HPV testing. [...] Goal Colonoscopy. Due on 033 due Goal Influenza vaccine. Due on due Goal Generalized Anxi ety Disorder - 7 (SONDRA-7). Due on due Goal Mammogram. Due on due Goal CMP. Due on due Goal TSH. Due on due Goal Tobacco Use Cess ation Counseling. Due on due Goal Hepatitis C Screening due Goal Vitamin B12. Due on 025 due Goal Lipid panel. Due on 029 due Goal ECG due Goal Lifestyle education regardin g diet completed Goal Foot exam. Due on 4 due Goal Dilated eye exam. Due on March due Goal Hep B (1st). Due on 024 due Goal ASCVD 10 year risk. Due on due Goal Vitamin B12. Due [...] Goal Vitamin D. Due on due Goal Unhealthy drug use screening due Goal Pap/HPV testing. Due on due Goal CMP. Due on due Goal Tobacco Use Scre ening. Due on due Goal Mammogram. Due on due Goal HIV screen due Goal Hemoglobin A1C. Due on due Goal Drug Abuse Scree davy Test (DAST-10). Due on due Goal ECG due Goal HPV testing. Due on due Goal TSH. Due on due Goal Depression scree davy. Due on due Goal Vitamin B12. Due on due Goal Urinalysis due Goal PAP. Due on due Goal Diabetes screening. Due on due Goal Colonoscopy. Due on due Goal Obtain blood Pre ssure. Due on due Goal Influenza vaccine. Due on Ma due Goal Lipid panel. Due on due [...] due Goal Hepatitis C Screening due Goal Lipid panel. Due on 028 due Goal Obtain blood Pre ssure. Due on due Goal Urinalysis due Goal Influenza vaccine. Due on due Goal Depression scree davy. Due on due Goal ECG due Goal Pneumococcal vac cine. Due on due Goal Hemoglobin A1C. Due [...] Goal Lipid panel. Due on due Goal Influenza vaccine. Due [...] Statin Me dication. Due on due Goal FOBT. Due on due Goal Unhealthy drug use screening due Goal Vitamin B12. Due on due Goal Generalized Anxi ety Disorder - 7 (SONDRA-7). Due on due Goal HIV screen due Goal CBC. Due on due Goal [...] Goal Lipid panel. Due on due Goal Follow up Plan [...] eight, and BMI. Due on due Goal CMP. Due on due Goal Lifestyle education regardin [...] B (1st). Due on 023 due Goal Vitamin D. Due on due [...] Pneumococcal vac cine. Due on due Goal Hepatitis C Screening due Goal Obtain blood Pre ssure. Due on due Goal Lipid panel. Due on 028 due Goal ECG due Goal HPV testing. Due on 023 due Goal Drug Abuse Scree davy Test [...] on due Goal Diabetes screening. Due on S due Goal Vitamin B12. Due on due Goal Obtain Height, W eight, and BMI. Due on due Goal Influenza vaccine. Due on due Goal FOBT. Due on due Goal Pneumococcal vac cine. Due on due Goal ECG due Goal Urinalysis due Goal Lipid panel. Due on due Goal Obtain blood Pre ssure. Due on due Goal CMP. Due on [...] eye exam. Due on Aug due Goal Urine microalbumin. Due on due [...] greater than 25). Due on due Goal Mammogram. Due on [...] Vitamin D. Due on 4 due Goal ECG due Goal Lipid panel. Due on 028 due Goal Urinalysis due Goal Depression scree davy. Due on due Goal Pneumococcal vac cine. Due on due Goal Obtain blood Pre ssure. Due on due Goal Drug Abuse Scree davy Test (DAST-10). Due on due Goal Lifestyle education regardin g diet completed Goal ASCVD 10 year risk. Due on due Goal Taking Statin Me dication. Due on due Goal Hep B (). Due on 023 due Goal Dilated eye exam. Due on Jul due Goal GFR. Due on due Goal Dental exam. Due on 023 due Goal Hemoglobin A1C. Due on due Goal Foot exam. Due on due Goal TSH. Due on due Goal Tobacco Use Scre ening. Due on due Goal Hepatitis C Screening due Goal Urine microalbumin. Due on S due Goal CBC. Due on due Goal Unhealthy drug u se screening. Due on due Goal Tobacco Use Cess ation Counseling. Due on due Goal HIV screen due Goal Generalized Anxi ety Disorder - 7 (SONDRA-7). Due on due Goal FOBT. Due on due Goal Drug Abuse Scree davy Test (DAST-10). Due on due Goal Colonoscopy. Due on 023 due Goal Vitamin B12. Due on 024 due Goal CMP. Due on due Goal PAP. Due on due Goal Mammogram. Due on due Goal HPV. Due on due Goal Obtain Height, W eight, and BMI. Due on due Goal Diabetes screening. Due on S due Goal HPV testing. Due on 023 [...] due Goal GFR. Due on due Goal CMP. Due on due Goal ECG due Goal ASCVD 10 year risk. Due on due Goal Taking Statin Me dication. Due on due Goal Dental exam. Due on 023 due Goal Drug Abuse Scree davy Test [...] Pneumococcal vac cine. Due on due Goal HPV. Due on due Goal Tobacco Use Cess ation Counseling. Due on due Goal HPV testing. Due on due Goal Obtain Height, W eight, and BMI. Due on due Goal Urinalysis. Due on 23 due Goal Lipid panel. Due on due Goal Dental exam. Due on due Goal GFR. Due on due Goal Hemoglobin A1C. Due on due Goal Colonoscopy. Due on due Goal Hep B (1st). Due on due Goal Tobacco Use Scre ening. Due on due Goal Vitamin D. Due on due Goal HPV testing. Due on due Goal Diabetes screening. Due on due Goal Taking Statin Me dication. Due on due Goal Foot exam. Due on due Goal Dilated eye exam. Due on Jun due Goal CBC. Due on due Goal ASCVD 10 year risk. Due on M due Goal Generalized Anxi ety Disorder - 7 (SONDRA-7). Due on due Goal FOBT. Due on due Goal Unhealthy drug use screening due Goal Follow up Plan f or abnormal BMI (Less than 18.5, greater than 25). Due on due Goal Urine microalbumin. Due on A due Goal HIV screen due Goal CMP. Due on due Goal Hepatitis C Screening due Goal Mammogram. Due on due Goal Vitamin B12. Due on 024 due Goal Depression scree davy. Due on due Goal Pneumococcal vac cine. Due on due Goal Drug Abuse Scree davy Test (DAST-10). Due on due Goal Pap/HPV testing. Due on due Goal PAP. Due on due Goal Influenza vaccine. Due on due Goal TSH. Due on due Goal Lipid panel. Due on 028 due Goal Urinalysis. Due on due Goal Tobacco Use Cess ation Counseling. Due on due Goal Obtain Height, W eight, and BMI. Due on due Goal ECG due Goal Obtain blood Pre ssure. Due on due Goal HPV. Due on due Goal Lifestyle education regardin g diet completed Goal Drug Abuse Scree davy Test (DAST-10). Due on due Goal HPV. Due on due Goal FOBT. Due on [...] Use Scre ening. Due on due Goal PAP. Due on due Goal Hemoglobin A1C. Due on due Goal Foot exam. Due on 4 due Goal Dilated eye exam. Due on Apr due Goal GFR. Due on due Goal Dental exam. Due on due Goal ASCVD 10 year risk. Due on due Goal Taking Statin Me dication. Due on due Goal Colonoscopy. Due on due Goal HPV. Due on due Goal Mammogram. Due on due Goal Diabetes screening. Due on due Goal CBC. Due on due Goal Urine microalbumin. Due on due Goal Generalized Anxi ety Disorder - 7 (SONDRA-7). Due on due Goal FOBT. Due on due Goal Pap/HPV testing. Due on due Goal HPV testing. Due on 023 due Goal Vitamin B12. Due on 024 due Goal PAP. Due on due Goal Tobacco Use Scre ening. Due on due Goal Hepatitis C Screening due Goal Tobacco Use Cess ation Counseling. Due on due Goal Hep B (1st). Due on 023 due Goal Vitamin D. Due on due Goal TSH. Due on due Goal ECG due Goal Lipid panel. Due on 028 due Goal Depression scree davy. Due on due Goal Follow up Plan f or abnormal BMI (Less than 18.5, greater than 25). Due on due Goal HIV screen due Goal Influenza vaccine. Due on due Goal Urinalysis. Due on 23 due Goal Pneumococcal vac cine. Due on due Goal Drug Abuse Scree davy Test (DAST-10). Due on due Goal Obtain blood Pre ssure. Due on due Goal CMP. Due on due Goal Unhealthy drug use screening due Goal Obtain Height, W eight, and [...] BMI. Due on due Goal Hep B (). Due on due Goal Foot exam. Due on due Goal HIV screen due Goal PAP. Due on due Goal Urinalysis. Due on due Goal Hepatitis C Screening [...] B (1st). Due on 023 due Goal Foot exam. Due on 4 due Goal ASCVD 10 year risk. Due on due Goal CBC. Due on due Goal Hemoglobin A1C. Due on due Goal Mammogram. Due on 3 due Goal Dilated eye exam. Due on March due Goal Urine microalbumin. Due on due Goal TSH. Due on due Goal Dental exam. Due on 023 due Goal PAP. Due [...] Diabetes screening. Due on F due Goal FOBT. Due on due Goal Unhealthy drug use screening due Goal Drug Abuse Scree davy Test (DAST-10). Due on due Goal Tobacco Use Cess ation Counseling. Due on due Goal Vitamin D. Due on 4 due Goal Vitamin B12. Due on 024 due Goal HIV screen due Goal Obtain blood Pre ssure. Due on due Goal Pneumococcal vac cine. Due on due Goal ECG due Goal Urinalysis. Due on due Goal Lipid panel. Due on 028 due Goal Tobacco cessation counseling completed Goal Foot exam. Due on 3 due Goal Hep B (1st). Due on 023 due Goal ASCVD 10 year risk. Due on A due Goal GFR. Due on due Goal Dental exam. Due on 023 due Goal Dilated eye exam. Due on Feb due Goal Urine microalbumin. Due on A due Goal Taking Statin Me dication. Due on due Goal Hemoglobin A1C. Due on due Goal Lipid panel. Due [...] Goal Vitamin D. Due on due Goal Unhealthy drug use screening due Goal Obtain blood Pre ssure. Due on due Goal Colonoscopy. Due on [...] A due Goal Vitamin B12. Due on due Goal Lifestyle education regardin [...] Cess ation Counseling. Due on due Goal TSH. Due on due Goal Unhealthy drug use screening due Goal Vitamin B12. Due on due Goal Pap/HPV testing. Due on due Goal FOBT. Due on due Goal Obtain Height, W eight, and BMI. Due on due Goal Mammogram. Due on due Goal Tobacco Use Scre ening. Due on due Goal Generalized Anxi ety Disorder - 7 (SONDRA-7). Due on due Goal Colonoscopy. Due on due Goal Influenza vaccine. Due on Nc due Goal ECG. Due on due Goal [...] Goal PAP. Due on due Goal HIV screen. Due on due Goal Follow up Plan f or abnormal BMI (Less than 18.5, greater than 25). Due on due Goal Lipid panel. Due on due Goal Pap/HPV testing. Due [...] vaccine. Due on due Goal Tobacco Use Cess ation Counseling. Due on due Goal Vitamin B12. Due on due Goal Vitamin D. Due on due Goal ECG. Due on due Goal Drug Abuse Scree davy Test (DAST-10). Due on due Goal FOBT. Due on due Goal Hepatitis C Scre ening. Due on due Goal Urinalysis. Due on due Goal Obtain blood Pre ssure. Due on due Goal Depression scree davy. Due on due Goal HIV screen. Due on due Goal Diabetes screening. Due [...] Goal HPV testing. Due on due Goal Colonoscopy. Due on 023 due Goal Dietary manageme nt education, guidance, and counseling completed Goal Tobacco cessation counseling completed Referral Ordered: CT ABDOMEN W/O & W/DYE Right abdomen Appointment date/timeframe: 1 Week ordered Referral Ordered: SCR MAMMO BI INCL CAD Bilateral Breast Appointment date/timeframe: 04/06/2024 ordered Referral Referred To: [facility] Ordered: Referrals: Physical Medicine and Rehabilitation. [facility] PT. Location: [place], [place]. Evaluate and treat Appointment date/timeframe: 02/09/2024 ordered Referral Ordered: MRI LUMBAR SPINE W/O DYE Bilateral spine, lumbar Appointment date/timeframe: 12/19/2023 ordered Referral Ordered: X-RAY EXAM OF LOWER SPINE Right spine, lumbar Appointment date/timeframe: 1 Day ordered Referral Referred To: Nicole Turner Ordered: Referrals: Neurology. Nicole Turner. Location: [facility]. Evaluate and treat Appointment date/timeframe: 10/11/2023 ordered Referral Referred To: Uro-gynecology Ordered: Referrals: Urology. Uro-gynecology. Location: [place]. Evaluate and treat Appointment date/timeframe: 08/31/2023 ordered Referral Ordered: Vitamin b12 injectionStrength 1000, Dose 1000 mcg Intramuscular Left deltoid ordered Referral Referred To: [facility] Ordered: Referrals: Radiotherapy. [facility]. Location: [facility]. Diagnostic testing Appointment date/timeframe: 1 Week ordered Referral Referred To: [facility] Ordered: Referrals: Orthopedic Surgery. [facility]. Location: [facility]. Evaluate and treat Appointment date/timeframe: 01/21/2023 ordered Referral Ordered: X-RAY EXAM OF KNEES Bilateral ordered Referral Referred To: [facility] [address] [place], [address] [phone] Ordered: Referrals: Podiatry. [facility]. Location: [place], [place]. Evaluate and treat Appointment date/timeframe: 02/04/2023 ordered Referral Referred To: Glenis Lara MSN [address] [place], [place], [id number] [phone] Ordered: Referrals: Psychiatry. Glen[facility] PONCE. Evaluate and treat Appointment date/timeframe: 2 Weeks ordered Referral Referred To: [facility] Ordered: Referrals: Gastroenterology. [facility]. Evaluate and treat Appointment date/timeframe: 03/31/2023 ordered Future Order: Lab Order CBC (INC LUDES DIFF/PLT) ([id number]), Scheduled for: Ordered Future Order: Lab Order COMPREHE NSIVE METABOLIC PANEL ([id number]), Scheduled for: Ordered Future Order: Lab Order HEMOGLOB IN A1C ([id number]), Scheduled for: Ordered Future Order: Lab Order LIPID PA LEWIS ([id number]), Scheduled for: Ordered Future Order: Lab Order TSH W/RE FLEX TO FREE T4 ([id number]), Scheduled for: Ordered Future Order: Lab Order VITAMIN B12 ([id number]), Scheduled for: Ordered History Of Present Illness Encounter Date Complaint History Of Francesco nt Illness ED/hospital f/u Cristina is here to day for ED/Hospital follow up. 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 She had attempted to yuli a wound/boil at home and the wound became infected. She was in the hospital became septic and required two surgeries for debridement.Wound vac was replaced at ER visit. Today, wound appears to be doing well. Drainage is still around 4 canisters daily, however she states insurance will only pay for 15 canisters monthly. She will follow up w/ wound care today at at [facility].She does appear pale today, but is up ambulating with rolling walker. Catheter still in place with cloudy yellow urine, and wound vac in appropriate place functioning will.Her Valsartan/HCTZ was paused during hospitalization. We will continue to hold this at this time. Bp today 112/75.31lb weight loss since 06/17/25 Fasting Labs Cristina is here to day [...] made aware. Pt is already est with [facility]. -AMIRA FOOTE complex f/u Irinadia is here to day for fasting labs and complex follow upDepression- worse- sees MCCCRefills of Cymbalta sent- has appt w/ unm hospital at 07 of AprilABD PAinRLQ, buldge that is painfulworse over past monthfirmdenies nvdweight gainout of ozempic over 1 yearCT abd ordered today to be completed this weekTrigger finger, lower back and sunshine knees- followed by Carla Sorto- appt made for pt today (Tuesday at [...] but is unable to see her r/t [facility] policy she will have to be [...] fighting. She was able to see the bilingual patient support caseworker Evon High for [facility] today and together decided that Cristina would go to [facility] for emergent help. She was transported by the [facility] from here to there. Medication refills for [...] Cholesterol 128, LDL 72, HDL 27, Trig 193Shcandida had a Neuro appt on 02/14/24 - Dr. Sullivan for f/u on period atypical spells of memory loss. She has been referred to [facility] for further evaluation. Marchcandida does have sleep apneashe is to f/u w/ Dr. Sullivan in 3 monthsCardiology month f/[place] changes in medicationsEKG- Stableshcandida is to RTC 6 monthsGastro 02/28/24 f/u apptwill repeat celiac testing in [facility] is to f/u in March with them [...] like rotten eggs.She has GI established at [place]. She has appt on 03/19/24. B12 INJECTION [...] 58WBC 17- denies illness today- some sinus voemyarkmyU4x 5.4CBC okTSH okB12 595B12 injection todayContinues w/ lower back pain now ongoing for 2 monthsSHe had xray of [facility] spine 10/18/23: no acute processno fractures, no malalighnment. Mild anterior osteophyte formation @ L2-L3 and L3-R5crukvr hx of degenerative disc diseasePain continues- unchanged [...] Mild anterior osteophyte formation @ L2-L3 and L3-J7xycxzm hx of degenerative disc diseasePain continues- unchangeddeclines pain management- states she is treating herself by smoking marijuana-declines to stopon Cymbalta for depression- could consider increasing to 60 mg- will allow GlenisLUIGI jiangHNP to manage- pt awareShe is due for fasting labs-scheduled to return in 2 weeksShe is due for monthly b12 -given todayreports sunshine ears itching as well.sunshine ear pain- infectednasal and congestion other Nedia states noé t she has family hx -mother and 2 uncles have degenerative disc diseaseNedia is obese- working on weight loss through [...] here to day for f/u on recent labsshcandida overall has imporvoedRDW 15.1. WBC 11.5Total cholesterol 114, HDL 21, LDL 67, and Trigs 188B12 485- RTC 2 weeks for next b12 iinjectionRadha had carpal tunnel sx on her left hand this past week- doing wellRefills on metformin and ozmepic todayUK Urology appt 08.31.23No appt yet on Neurology- Dr. Sandoval- for [...] or the eventStates this did happen before [id number] Went to Neuurology when she was 19- was evaluated in [place]-for something similar. Was dx with adolescent seizures [...] is in counseling will see Glenis tomorrow- HNP-lab tech for possible medication management.She would like to go to Neurology for evaluation to see if there is a neurological component to this blacking out. States that she does sometimes does find herself staring offShe does have some numbness and tingling in both arms- more right than leftShe is going to have a carpal tunnel sx on 08.08.23 - at [place] Dr. Sorto.Denies cp, dizziness, no faintingCurrently no new medicationsDoes smoke marijuana- no other recreational drugs, or substances, no [id number] weight loss- continues ozempicdoing well nocturia The [...] is here today after being admitted to [facility] in [place], [place] on 06.08.23 for dehydration. Pt was transferred from [place] to [facility] and discharged on 06.09.23. She states that her Lexapro was recently increased from 10 mg to 20 mg and for that reason, while in the sun got dehydrated, she reports she dropped her dose back down to 10 mg until she can see the prescriber again (Glenis Molina APRN, [facility]). Today she states she is feeling betterdrinking [...] has been diagnosed with Celiac Disease via [facility], gastroenterology and is starting a [...] is morbidly obeseAsthma- Pt [facility] on 04[facility]16[facility]23 for URI- she states [...] 5.9, next labs are due after March 23Likely Dx DM masked by metformin- asking to [...] the referral to Plastics at for Hidradentitis [id number] today- to complete 6 week series, now will do monthlyShe has also requested for me to complete her DM foot form from [facility] for DM shoes. She had DM foot exam at [facility] as well as trimming of nails. Records reviewed, diabetic footwear form is to show she has a DM management.Forms will be completed and faxed to [facility].She was found to have [...] will be starting sessions with Mary at [facility] on Tuesday, and may then be [...] of her feet/nails.She would like to go [place] as Sylvester reports she has had some fungal infections in past, maybe at currentSHe is prediabetic- A1c 5.9, on metformin 500 mg bidToday she has some wheezing, o2 94% on room airShe is followed by pulmonologyon 2.. her wbc was elevatedShe reports cough and [...] pocket in her abdomen that was infected- [facility]- Dr. Leobardo Oh. Other hx includes surgeries, [...] 8, coffee, java monster drinksWants [facility] April 29ap May 11, 2022- Polina GilFlu/covid vaccines declined today She is fasting- labs today Instructions Date Instruction Additional Infor damon Patient currently do ing well. BP in goal range. No medication changes. Patient instructed to follow a low salt diet, continuing taking blood pressure medications as prescribed. Keep routine follow up with clinic.Continue to hold Valsartan-HCTZ for now. Will reassess in 1 month. Today your BP was 112/75. Related to Essential (primary) hypertension It is recommended to stop smoking/vaping to increase overall health and decrease risk of cardiovascular disease. If you wish to stop smoking/vaping, there is a free online [place] from smoking course offered through our local health department. You may call [phone] for more information. Related to Nicotine dependence, cigarettes, uncomplicated Follow up with wound care today at 1continue wound vac until further advised by wound care management.Address need for more antibiotics with them.Watch for changes, signs of infection, fever, chills, smell, change in drainage and report immediately to them or myself. Related to Hidradenitis suppurativa Giving encouragement to exercise Related to Body mass index [BMI] 45.0-49.9, adult Lifestyle education regarding di et Related to Body mass index [BMI] 45.0-49.9, adult elevate legs when se ated or supine; [...] adult; and Caloric intake should be around 1589-4405 for a female, and 2080-9727 for an adult male. Fiber intake should [...] are recommend to be 13-30 grams each. [employer] is a good source for meal planning and dietary education. You may also refer to the [place] [employer] website for further low sodium, health heart diet information. Mediterainian diet would be a suitable diet for your current health conditions. Related to Obesity It is recommended to stop smoking/vaping to increase overall health and decrease risk of cardiovascular disease. If you wish to stop smoking/vaping, there is a free online [place] from smoking course offered through our local health department. You may call [phone] for more information. Related to Nicotine dependence, [...] adult; and Caloric intake should be around 5260-5448 for a female, and 7399-6230 for an adult male. Fiber intake should [...] are recommend to be 13-30 grams each. [employer] is a good source for meal planning and dietary education. You may also refer to the [place] [employer] website for further low sodium, health heart diet information. Mediter[place]ian diet would be a suitable diet for your current health conditions.- Celiac diet r/t you dx of celiac disease Related to Obesity Take medications as prescribed. Follow a sleep schedule. Try to engage in 30 minutes of moderate activity daily if tolerated, as exercise has been shown to improve depression symptoms Related to Depression It is recommended to stop smoking/vaping to increase overall health and decrease risk of cardiovascular disease. If you wish to stop smoking/vaping, there is a free online [place] from smoking course offered through our local health department. You may call [phone] for more information. Related to Nicotine dependence, cigarettes, uncomplicated Patient educated on the importance of maintaining [...] Type 2 diabetes mellitus w/ diabetic neuropathy CT of abdomen ordere dPlease keep apptF/u 2 weeks on labs and CT result Related to Abdominal pain Use your maintainenc e inhaler daily as instructed. Always rinse your mouth out with water after each use. Monitor for thrush infections. Identify asthma triggers and avoid them. Monitor for worsening of symptoms. Related to Asthma Patient currently do ing well. BP in [...] to Body mass index [BMI] 50.0-59.9, adult Eat foods rich in B- 12. Additional oral B12 replacement if indicated. Related to Vitamin B12 deficiency 15 minutes of sun ex posure daily to naturally raise vitamin D levels Related to Vitamin D deficiency Physical activity as tolerated. Try to [...] stop smoking/vaping, there is a free online [place] from smoking course offered through our local health department. You may call [phone] for more information. Related to Nicotine dependence, cigarettes, uncomplicated High fiber diet. Inc rease water intake. Take any medications prescribed as directed. May use OTC medications prn for symptom relief. Related to Chronic constipation Take medications as prescribed. Follow a sleep schedule. Try to engage in 30 minutes of moderate activity daily if tolerated, as exercise has been shown to improve depression symptomsPt [facility] speaking with [facility] bilingual patient support caseworker Evon High. Related to Depression Patient currently do ing [...] system. Verbalizes an understanding. Related to Obesity It is recommended to stop smoking/vaping to increase overall health and decrease risk of cardiovascular disease. If you wish to stop smoking/vaping, there is a free online [place] from smoking course offered through our local health department. You may call [phone] for more information. Related to Nicotine dependence, cigarettes, uncomplicated Physical activity as tolerated. Try to engage in some form of moderate physical activity for 30 minutes most days of the week. May modify activity as needed to reduce discomfort. Try to achieve/maintain a healthy body weight to reduce strain on musculoskeletal system. Verbalizes an understanding. Related to Body mass index [BMI] 45.0-49.9, adult B-12 injection given in office today. Eat foods rich in B-12. Additional oral B12 replacement if indicated. Related to Vitamin B12 deficiency 15 minutes of sun ex posure daily to naturally raise vitamin D levels Related to Vitamin D deficiency Low fat, low cholest dsutin diet. Avoid fatty, fried, and greasy foods. [...] to Body mass index [BMI] 45.0-49.9, adult Use your maintainenc e inhaler daily as instructed. Always rinse your mouth out with water after each use. Monitor for thrush infections. Identify asthma triggers and avoid them. Monitor for worsening of symptoms. Related to Asthma Patient currently do ing well. BP in goal range. No medication changes. Patient instructed to follow a low salt diet, continuing taking blood pressure medications as prescribed. Keep routine follow up with clinic. Related to Essential (primary) hypertension Discussed stress red uction techniques. Take medications [...] stop smoking/vaping, there is a free online [place] from smoking course offered through our local health department. You may call [phone] for more information.Use nicotine patches as instructed.RTC [...] stop smoking/vaping, there is a free online [place] from smoking course offered through our local health department. You may call [phone] for more information. Related to Nicotine dependence, [...] stop smoking/vaping, there is a free online [place] from smoking course offered through our local health department. You may call [phone] for more information. Related to Nicotine dependence, [...] with clinic. Related to Essential (primary) hypertension Physical activity as tolerated. Try to engage in some form of moderate physical activity for 30 minutes most days of the week. May modify activity as needed to reduce discomfort. Try to achieve/maintain a healthy body weight to reduce strain on musculoskeletal system. Verbalizes an understanding. Related to Body mass index [BMI] 50.0-59.9, adult Patient educated on the importance of improved [...] to Body mass index [BMI] 50.0-59.9, adult We will make a refer ral to Dr. Sullivan for a neurological evaluation. Related to Memory loss It is recommended to stop smoking/vaping to increase overall health and decrease risk of cardiovascular disease. If you wish to stop smoking/vaping, there is a free online [place] from smoking course offered through our local health department. You may call [phone] for more information.Use nicotine patches as instructed.RTC 1 month for f/u Related to Nicotine dependence, cigarettes, uncomplicated B-12 [...] with clinic. Related to Essential (primary) hypertension High fiber diet. Inc rease water intake. [...] adult; and Caloric intake should be around 2781-8768 for a female, and 4217-0171 for an adult male. Fiber intake should [...] education. You may also refer to the [employer] website for further low sodium, [...] to Body mass index [BMI] 50.0-59.9, adult rest, ice, compressi on as instructed to reduce joint pain and swelling Related to Pain in right knee Patient educated on the importance of maintaining [...] Type 2 diabetes mellitus w/ diabetic neuropathy It is recommended to stop smoking/vaping to increase overall health and decrease risk of cardiovascular disease. If you wish to stop smoking/vaping, there is a free online [place] from smoking course offered through our local health department. You may call [phone] for more information.Use nicotine patches as instructed.RTC 1 month for f/u Related to Nicotine dependence, cigarettes, uncomplicated rest, ice, compressi on as instructed to reduce joint pain and swelling Related to Pain in left knee Physical activity as tolerated. Try to engage in some form of moderate physical activity for 30 minutes most days of the week. May modify activity as needed to reduce discomfort. Try to achieve/maintain a healthy body weight to reduce strain on musculoskeletal system. Verbalizes an understanding. Related to Morbid (severe) obesity due to excess calories Use your maintainenc e inhaler daily as instructed. Always rinse your mouth out with water after each use. Monitor for thrush infections. Identify asthma triggers and avoid them. Monitor for worsening of symptoms. Related to Asthma Patient currently do ing well. BP in [...] has been faxed to Orthopedic office in [place], and form scanned to chart. Related to [...] stop smoking, there is a free online [place] from smoking course offered through our local health department. You may call [phone] for more information. Related to Nicotine dependence, [...] adult; and Caloric intake should be around 3582-2643 for a female, and 2493-1726 for an adult male. Fiber intake should [...] are recommend to be 13-30 grams each. [employer] is a good source for meal planning and dietary education. You may also refer to the [employer] website for further low sodium, [...] stop smoking, there is a free online [place] from smoking course offered through our local health department. You may call [phone] for more information. I have given you nicotine patches to begin for 4 weeks. We will reevaluate need for dose adjustment at this time. Apply patches to dry skin for 24 hours. Alternate application sites. If skin irritation occurs, discontinue use. Related to Nicotine dependence, cigarettes, uncomplicated Take medications as prescribed. Follow a sleep schedule. Try to engage in 30 minutes of moderate activity daily if tolerated, as exercise has been shown to improve depression symptoms Related to Depression High fiber diet. Inc rease water intake. Take any medications prescribed as directed. May use OTC medications prn for symptom relief. Related to Chronic constipation Orthopedic Referal made Related to Paresthesia of [...] adult; and Caloric intake should be around 3918-9060 for a female, and 9676-4494 for an adult male. Fiber intake should [...] are recommend to be 13-30 grams each. [employer] is a good source for meal planning and dietary education. You may also refer to the [employer] website for further low sodium, [...] care. Patient verbalized understanding. Related to Prediabetes Patient currently do ing well. BP in goal range. No medication changes. Patient instructed to follow a low salt diet, continuing taking blood pressure medications as prescribed. Keep routine follow up with clinic. Related to Essential (primary) hypertension High fiber diet. Inc rease water intake. [...] to tolerate. Related to Anxiety disorder, unspecified It is recommended to stop smoking to increase overall health and decrease risk of cardiovascular disease. If you wish to stop smoking, there is a free online [place] from smoking course offered through our local health department. You may call [phone] for more information. Related to Nicotine dependence, [...] Morbid (severe) obesity due to excess calories 15 minutes of sun ex posure daily [...] [BMI] 50.0-59.9, adult Assessments Type Assessment Date assessment Hidradenitis suppurativa 2024 assessment Nicotine dependence, cigarettes, uncomplicated assessment Body mass index [BMI] 45.0-49.9, adult assessment Essential (primary) hypertension Mental Status Date Cognitive Assessment Orientation - Baylis ed to time, place, person, situation.
[2025-08-11] VITALS (10 sets, daily range): BP systolic 112–143; BP diastolic 72–96; PULSE 83–104; RESP 18–20; TEMP 36.8–37; O2SAT 95–99; BMI 49.4
--- OUTSIDE RECORDS SUMMARY | 2025-08-11 10:51 | XMS_ITS | Encounter Summary ---
Author Organization Healthcare Address [address] [place] [address] Care Team Providers Care Fish Hatchery Supervisor Name Role Phone Yenny Dhillon APRN Primary Care Provider [phone] Encounter Details Date Type Department Care Team (Latest Contact Info) Description 08/03/2025 Travel Social History Tobacco Use Types Packs/Day [...] any time in the past 12 m [facility], were you homeless or living in a snf (including now)? No 07/15/2025 [facility] Utilities Answer Date Recorded In the [...] (Lifetime) No 08/03/2025 5:44 PM EDT Annie Toledo, RN documented as of this encounter Plan of Treatment Upcoming Encounters Date Type Department Care Team (Late st Contact Info) Description 08/20/2025 9:00 AM EDT Office Visit Medical Office Building Urology [address] [facility], [address] [place] [address] Marj Matamoros, DIRECTOR CRAFT CENTER [address] [place] [address] 08/20/2025 10:30 AM EDT Office Visit [facility] Surgery [address], [address] [place] [address] Lilliana Morfin, DIRECTOR CRAFT CENTER [address] [place] [address] documented as of this encounter [...] documented as of this encounter Care Teams Fish Hatchery Supervisor Relationship Specialty Start Date End Date Yenny Dhillon APRN [address] [place] [address] PCP - General 07/22/23 documented as of this encounter
--- OUTSIDE RECORDS SUMMARY | 2025-08-11 10:51 | XMS_ITS | Encounter Summary ---
Author Organization Healthcare Address [address] [place] [address] Care Team Providers Care Fundraising Manager Name Role Phone DhillonYenny Lit CASTRO Primary Care Provider [phone] Encounter Details Date Type Department Care Team (Late st Contact Info) Description 08/09/2025 Orders Only [place] Clinic Urology [address], [address] [place] [address] Marj Matamoros, CONCILIATOR [address] [place] [address] Bladder spasms (Primary Dx) Social History Tobacco Use Types [...] any time in the past 12 m [facility], were you homeless or living in a usp (including now)? No 07/15/2025 [facility] Utilities Answer Date Recorded In [...] Upcoming Encounters Date Type Department Care Team ([facility] Contact Info) Description 08/20/2025 9:00 AM EDT Office Visit Medical Office Building Urology [facility] [address] [facility], [address] [place] [address] Marj Matamoros, CONCILIATOR [address] [place] [address] 08/20/2025 10:30 AM EDT Office Visit [facility] General Surgery [address], 1st [place] [address] Lilliana Morfin, CONCILIATOR [address] [place] [address] documented as of this encounter Visit Diagnoses Diagnosis Bladder spasms- Primary Hypertonicity of bladder documented in this encounter Additional Health Concerns Assessment Noted Time PHQ-9 Depression Total Score: 16 023 9:36 AM EDT A fall risk assessment has been complete d for the patient 08/31/2023 9:38 AM EDT A Body Mass Index follow-up plan has been documented for the patient 07/19/2025 10:51 AM EDT documented as of this encounter Care Teams Fundraising Manager Relationship Specialty Start Date End Date Yenny Dhillon APRN [address] [place] [address] PCP - General 07/22/23 documented as of this encounter
--- OUTSIDE RECORDS SUMMARY | 2025-08-11 10:52 | XMS_ITS | Clinical Summary ---
Author Organization [facility] Address [address] [place] [address] Phone Care Team Providers Care Arbitrator Name Role Phone Unavailable Primary Care Provider [...] skin) 0.25 mg once a week. Active lkqlpups-kfzq-m od8-R-tfyw-bosw (OSTEO BI-FLEX TRIPLE STRENGTH) 750 mg-644 mg- 30 mg-1 mg Oral Tablet Take 1 Tablet by mouth 2 times daily. Active docusate sodium (COLACE) 100 mg Oral Capsule Take 200 mg by mouth daily. Active budesonide-form oteroL (SYMBICORT) 160-4.5 mcg/actuation Inhl HFA Aerosol Inhaler Inhale 2 Puffs into the lungs 2 times daily. Active fluticasone propionate (FLONASE) 50 mcg/actuation Nasl [place], Suspension 2 Sprays by Nasal route 2 [...] Date Smoking Tobacco: Every Day Cigarettes 1.5 38.2 Started: 06/09/1987 Passive Smoke Exposure: Current Smokeless [...] on file Sexual Orientation Not on file Last Filed Vital Signs Vital Sign Reading [...] - 145 mmol/L 06/09/2023 6:37 AM EDT [facility] Potassium 3.9 3.5 - 5.0 mmol/L 06/09/2023 6:37 AM EDT [facility] Chloride 98 98 - 107 mmol/L 06/09/2023 6:37 AM EDT [facility] Total CO2 27 22 - 29 mmol/L 06/09/2023 6:37 AM EDT [facility] Anion Gap 12 7 - 16 mmol/L 06/09/2023 6:37 AM EDT [facility] Calcium 10.0 8.6 - 10.4 mg/dL 06/09/2023 6:37 AM EDT [facility] Glucose Lvl 116(H) 74 - 100 mg/dL 06/09/2023 6:37 AM EDT [facility] BUN 33(H) 6 - 20 mg/dL 06/09/2023 6:37 AM EDT [facility] Creatinine 1.57(H) 0.51 - 1.30 mg/dL 06/09/2023 6:37 AM EDT [facility] eGFR (CKD-EPIcr 2020) 40(L) >=60 mL/min/1.7 3 m2 06/09/2023 6:37 AM EDT [facility] Comment:Estimated GFR was ca lculated using the CKD-EPIcr (2020) equation refit without race. The equation is recommended by the National Kid[employer] - [place] [employer]ph[employer] Task Force. Blood VENOUS BLOOD / Unknown Venipuncture / Unknown 06/09/2023 5:45 AM EDT 06/09/2023 6:13 AM EDT us Sakshi Bolton RESIDENT INTERN CHEMISTRY ORDERABLES Fi nal Result [facility] [address] [place] [address] from Last 3 Months or Most Recently Relevant to [place] [address] [place] [address] Advance Directives For more information, please contact: [phone] * Full Code (Latest Code Status on File) Date Activated Date Inactivated Comments 06/09/2023 3:43 AM 06/09/2023 11:28 PM
--- OUTSIDE RECORDS SUMMARY | 2025-08-11 10:53 | XMS_ITS | Encounter Summary ---
Author Organization Healthcare Address [address] [place] [address] Care Team Providers Care Director Of Recruiting Name Role Phone Yenny Dhillon APRN Primary Care Provider [phone] Encounter Details Date Type Department Care Team [...] any time in the past 12 m [facility], were you homeless or living in a senior living (including now)? No 07/15/2025 [facility] [...] [facility], [address] [place] [address] Marj Matamoros, TECHNICAL SALES DIRECTOR [address] [place] [address] 08/20/2025 10:30 AM EDT Office Visit [facility] General Surgery [address], 1st [place] [address] Lilliana Morfin, TECHNICAL SALES DIRECTOR [address] [place] [address] documented as of this encounter [...] documented as of this encounter Care Teams Director Of Recruiting Relationship Specialty Start Date End Date Yenny Dhillon, TECHNICAL SALES DIRECTOR [address] [place] [address] PCP - General 07/22/23 documented as of this encounter
--- OUTSIDE RECORDS SUMMARY | 2025-08-11 10:53 | XMS_ITS | Encounter Summary ---
Author Organization Healthcare Address [address] [place] [address] Care Team Providers Care Patcher Helper Name Role Phone Yenny Dhillon APRN Primary Care Provider [phone] Encounter Details Date Type Department Care Team [...] any time in the past 12 m [facility], were you homeless or living in a retirement (including now)? No 07/15/2025 [facility] Utilities Answer Date Recorded In the past 12 months has th e electric, gas, oil, or water linkedü threatened to shut off services in your [...] Visit Medical Office Building Urology [address], [address] [place] [address] Marj Matamoros, BRINE SUPERVISOR [address] [place] [address] 08/20/2025 10:30 AM EDT Office Visit [facility] General Surgery [address], 1st [place] [address] Lilliana Morfin, BRINE SUPERVISOR [address] [place] [address] documented as of this encounter [...] documented as of this encounter Care Teams Patcher Helper Relationship Specialty Start Date End Date Yenny Dhillon APRN [address] [place] [address] PCP - General 07/22/23 documented as of this encounter
--- OUTSIDE RECORDS SUMMARY | 2025-08-11 10:53 | XMS_ITS | Encounter Summary ---
Author Organization Healthcare Address [address] [place] [address] Care Team Providers Care Event Host Name Role Phone Yenny Dhillon APRN Primary Care Provider [phone] Encounter Details Date Type Department Care Team [...] any time in the past 12 m [facility], were you homeless or living in a fpc (including now)? No 07/15/2025 [facility] Utilities Answer Date Recorded In the [...] Visit Medical Office Building Urology [address] [facility], [address] [place] [address] Marj Matamoros, HONING MACHINE SET UP OPERATOR [address] [place] [address] 08/20/2025 10:30 AM EDT Office Visit [facility] General Surgery [address], [address] [place] [address] Lilliana Morfin APRN [address] [place] [address] documented as of this encounter Visit Diagnoses [...] documented as of this encounter Care Teams Event Host Relationship Specialty Start Date End Date Yenny Dhillon APRN [address] [place], [place] [phone] PCP - General 07/22/23 documented as of this encounter
--- OUTSIDE RECORDS SUMMARY | 2025-08-11 10:53 | XMS_ITS | Encounter Summary ---
Author Organization Healthcare Address [address] [place] [address] Care Team Providers Care Pourer Buggy Ladle Name Role Phone Yenny Dhillon Lit CASTRO Primary Care Provider [phone] Reason for Visit * Reason Onset Date Comments [facility]CN Clinical Concern/Question 08/02/2025 Encounter Details Date Type Department Care Team (Late st Contact Info) Description 08/02/2025 Telephone [place] [facility] U[facility] [address], 2[address] [place] [address] Marj Matamoros APRN [address] [place] [address] [facility] Clinical Concern/Question Social History [...] any time in the past 12 m [facility], were you homeless or living in a retirement (including now)? No 07/15/2025 [facility] Utilities Answer Date Recorded In the past [...] No Risk Indicated 08/03/2025 5:44 PM EDT [facility] Brittany grover RN * Question Answer Date of Assessment Author 1. Wish to be (Past 1 Month) No 08/03/2025 5:44 PM EDT Annie Toledo RN 2. Non-Specific Active Suicidal Thoughts (Past 1 Month) No 08/03/2025 5:44 PM EDT Annie Toledo RN 6. Suicidal Behavior (Lifetime) No 08/03/2025 5:44 PM EDT Annie Toledo RN documented as of this encounter Miscellaneous Notes * Telephone Encounter - Ercia Romero RN - 08/09/2025 3:49 PM EDT Ashley Brown contacted the clinic back. I told her that Marj Matamoros sent oxybutynin to [facility] in [place]. She should go to the ER if there is no urine draining or she has any signs of infection. Patient plans to monitor urine output and to leaf size picker the oxybutynin. She verbalized understanding to go to emergency department if catheter isn't draining or she develops signs of infection. * Telephone Encounter - Erica Romero RN - 08/09/2025 3:21 PM EDT I attempted to contact Ashley Brown by phone at [phone] and [phone]. There was no answer. I left a message for the patient to call the Urology Clinic at [phone]. * Telephone Encounter - Erica Romero RN - 08/09/2025 2:06 PM EDT I contacted Ashley Brown by phone at [phone]. Patient states that her catheter was placed to keep urine out of her wound. She states that she gets a pain in her stomach and then the urine gushes out around the catheter. When she is not experiencing the pain, she states that her catheter drains normally. She states that she currently takes myrbetriq. Urgent message sent to provider. * Telephone Encounter - Morris Jeffries - 08/05/2025 9:00 AM EDT Called and spoke to the patient and they stated they had a wound from there thigh to there vagina and was told to get in too see provider * Telephone Encounter - Marilee Sinha - 08/02/2025 10:38 AM EDT Patient Phone Message Reason for Call: Pt is calling states she DC from [facility] on Tue. Was advised to call and make LUIS A follow up with Richelle Matamoros. Please advise Best contact number and optimal time of day to reach caller: [phone] Note: Please do not reply to this message. Follow-up communication and further actions as a result of this message need to be communicated with the patient directly, if the patient is not active onMyChart. If the patient is active on MyChart, they will receive notification of the communication/outcome via [employer]. documented in this encounter Plan of Treatment Upcoming Encounters Date Type Department Care Team (Late st Contact Info) Description 08/20/2025 9:00 AM EDT Office Visit Medical Office Building Urology [address] [facility], [address] [place] [address] Marj Matamoros, BILLING CLERK [address] [place] [address] 08/20/2025 10:30 AM EDT Office Visit [facility] General Surgery [address], 1[address] [place] [address] Lilliana Morfin, BILLING CLERK [address] [place] [address] documented as of this encounter Visit Diagnoses [...] documented as of this encounter Care Teams Pourer Buggy Ladle Relationship Specialty Start Date End Date Yenny Dhillon APRN [address] [place] [address] PCP - General 07/22/23 documented as of this encounter
--- OUTSIDE RECORDS SUMMARY | 2025-08-11 10:56 | XMS_ITS | Encounter Summary ---
Author Organization Healthcare Address [address] [place] [address] Care Team Providers Care Chief Yeoman Name Role Phone DhillonYenny whyte Lit CASTRO Primary Care Provider [phone] Encounter Details Date Type Department Care Team [...] Month) No 07/10/2025 8:00 PM EDT Cheyanne Briceño, RN 6. Suicidal Behavior (Lifetime) No 07/10/2025 8:00 PM EDT Cheyanne Briceño, RN documented as of this encounter Plan of Treatment Upcoming Encounters Date Type Department Care Team (Late st Contact Info) Description 08/20/2025 9:00 AM EDT Office Visit Medical Office Building Urology [address] [facility], [address] [place] [address] Marj Matamoros, JEWEL OLIVING MACHINE OPERATOR [address] [place] [address] 08/20/2025 10:30 AM EDT Office Visit [facility] General Surgery [address], 1[address] [place] [address] Lilliana Morfin, JEWEL OLIVING MACHINE OPERATOR [address] [place] [address] documented as of this encounter [...] as of this encounter Care Teams Chief Yeoman Relationship Specialty Start Date End Date Yenny Dhillon, JEWEL OLIVING MACHINE OPERATOR [address] [place] [address] PCP - General 07/22/23 documented as of this encounter
--- OUTSIDE RECORDS SUMMARY | 2025-08-11 10:56 | XMS_ITS | Encounter Summary ---
Author Organization Healthcare Address [address] [place] [address] Care Team Providers Care Lighting Equipment Operator Name Role Phone Yenny Dhillon APRN Primary Care Provider [phone] Encounter Details Date Type Department Care Team [...] any time in the past 12 m [facility], were you homeless or living in a skilled nursing (including now)? No 07/13/2025 [facility] Utilities Answer [...] Visit Medical Office Building Urology [address] [facility], [address] [place] [address] Marj Matamoros, GLORIA [address] [place] [address] 08/20/2025 10:30 AM EDT Office Visit [facility] General Surgery [address], [address] [place] [address] Lilliana Morfin APRN [address] [place] [address] documented as of this encounter Visit Diagnoses [...] documented as of this encounter Care Teams Lighting Equipment Operator Relationship Specialty Start Date End Date Yenny Dhillon APRN [address] [place] [address] PCP - General 07/22/23 documented as of this encounter
--- OUTSIDE RECORDS SUMMARY | 2025-08-11 10:57 | XMS_ITS | Encounter Summary ---
Author Organization Healthcare Address [address] [place] [address] Care Team Providers Care Clerk Name Role Phone DhillonYenny whyte Lit CASTRO Primary Care Provider [phone] Encounter Details Date Type Department Care Team [...] (Lifetime) No 07/08/2025 11:34 PM EDT Cheyanne Briceño, RN documented as of this encounter Plan of Treatment Upcoming Encounters Date Type Department Care Team (Late st Contact Info) Description 08/20/2025 9:00 AM EDT Office Visit Medical Office Building Urology [address] [facility], [address] [place] [address] Marj Matamoros, TUBE BUILDER [address] [place] [address] 08/20/2025 10:30 AM EDT Office Visit [facility] General Surgery [address], [address] [place] [address] Lilliana Morfin, TUBE BUILDER [address] [place] [address] documented as of this encounter [...] documented as of this encounter Care Teams Clerk Relationship Specialty Start Date End Date Yenny Dhillon, TUBE BUILDER [address] [place] [address] PCP - General 07/22/23 documented as of this encounter
--- OUTSIDE RECORDS SUMMARY | 2025-08-11 10:57 | XMS_ITS | Encounter Summary ---
Author Organization Healthcare Address [address] [place] [address] Care Team Providers Care Acquisition Cost Estimator Name Role Phone DhillonYenny whyte Lit CASTRO Primary Care Provider [phone] Encounter Details Date Type Department Care Team [...] Month) No 07/09/2025 8:00 PM EDT Cheyanne Briceño, RN 6. Suicidal Behavior (Lifetime) No 07/09/2025 8:00 PM EDT Cheyanne Briceño, RN documented as of this encounter Plan of Treatment Upcoming Encounters Date Type Department Care Team (Late st Contact Info) Description 08/20/2025 9:00 AM EDT Office Visit Medical Office Building Urology [address] [facility], [address] [place] [address] Marj Matamoros, TUBE LANCER [address] [place] [address] 08/20/2025 10:30 AM EDT Office Visit [facility] General Surgery [address], [address] [place] [address] Lilliana Morfin, TUBE LANCER [address] [place] [address] documented as of this encounter [...] documented as of this encounter Care Teams Acquisition Cost Estimator Relationship Specialty Start Date End Date Yenny Dhillon, TUBE LANCER [address] [place] [address] PCP - General 07/22/23 documented as of this encounter
--- OUTSIDE RECORDS SUMMARY | 2025-08-11 10:59 | XMS_ITS | Clinical Summary ---
Author Organization Healthcare Address [address] [place] [address] Care Team Providers Care Bore Mill Operator Name Role Phone DhillonYenny Lit CASTRO Primary Care Provider [phone] Allergies Active Allergy Reactions Criticality Noted Date Comments Alprazolam Other - please docum ent in the comment field High 07/21/2015 Aspirin Hives,Rash Medium 03/19/2015 Bupropion Anaphylaxis High 06/08/2023 Diazepam Other - please docum ent in the comment field Low 06/09/2023 Makes her mean Doxycycline Hives,Rash Medium 03/19/2015 Penicillins Hives,Rash Medium 07/22/1983 Medications valsartan-hydroC HLOROthiazide (Diovan-HCT) 320-12.5 MG tablet Take [...] 1 tablet by mouth daily. 05/12/20 Active budesonide-formo terol (Symbicort) 160-4.5 MCG/ACT inhaler Inhale 2 puffs [...] Active lamoTRIgine (LaMICtal XR) 100 mg tablet sustained-releas e 24 hour 24 hr tablet Take 1 [...] 1 tablet by mouth Q MWF. 07/19/20 25 Active polyethylene glycol (Miralax) 17 g packet Take 17 g by mouth daily. 07/20/20 25 Active senna-docusate (Leann-Colace) 8.6-50 MG tablet Take 1 tablet by mouth 2 times a day. 07/19/20 25 Active Nutritional Supplements (Jose) pack Take 1 Package by mouth 2 times a day with meals. 07/19/20 25 Active oxybutynin XL (Ditropan-XL) 10 MG 24 hr tabletIndication s:Bladder spasms Take 1 tablet by mouth daily. Do not crush, chew, or split. 30 tablet 11 08/09/20 25 026 Active mirabegron ER (Myrbetriq) 25 MG tabletIndication s:Urge incontinence Take 1 tablet by mouth daily. 30 tablet 3 03/22/20 25 025 Active Problems Problem Noted Date Diagnosed Date Hypoxia 07/16/2025 Overview (07/16/2025): On 6 L NC, smoker Postoperative pain 07/13/2025 Assessment & Plan (07/19/2025 7:08 AM EDT): [facility] Assessment & Plan (07/18/2025 7:05 AM EDT): [facility] Assessment & Plan (07/17/2025 10:21 AM EDT): [facility] Assessment & Plan (07/16/2025 6:52 AM EDT): [facility] Assessment & Plan (07/15/2025 7:15 AM EDT): [facility] Assessment & Plan (07/14/2025 7:31 AM EDT): [facility] Assessment & Plan (07/13/2025 12:36 PM EDT): [facility] JOSEP (obstructive sleep apnea) 07/11/2025 Overview (07/11/2025): [...] fasciitis 07/08/2025 Overview (07/12/2025): - Presented to with right medial thigh [...] changes at bedside daily Assessment & Plan (08/03/2025 9:17 PM EDT): S/p debridement with SGE initially on 07/08/25 Improvement with wound care and wound vac Wound vac replaced in ED Assessment & Plan (07/19/2025 7:08 AM EDT): [...] Encounters Date Type Department Care Team Description 08/09/[address] [facility] Urology [address] [place] [address] Marj Matamoros APRN Bladder spasms (Primary Dx) 08/03/2025 5:34 PM EDT - 08/03/2025 9:28 PM EDT Emergency [facility] Emergency Department [address] [place] [address] Luis Cotto MD Necrotizing fasciitis (CMS/HCC) (Primary Dx); Encounter for management of wound VAC Discharge Disposition: Home or Self Care 08/03/2025 Travel 08/02/[address] [facility] Urology [address] [place] [address] Marj Matamoros, FOOD PREPARATION KITCHEN AIDE [facility] Clinical Concern/Question 07/22/2025 Travel 07/17/2025 Travel 07/16/2025 Travel 07/14/2025 2:41 PM EDT Anesthesia Event [facility] OPERATING ROOM [address] [address] Azul Eisenberg CRNA, Lynnette Montoya, DO 07/14/2025 2:05 PM EDT - 07/14/2025 4:05 PM EDT Surgery [facility] [address] [place] [address] Anne Franco MD Debridement, partial closure of right groin wound 07/12/2025 Travel 07/11/2025 2:12 PM EDT Anesthesia Event [facility] [address] [place] [address] Eddie Fulton MD Gambrel, Shira G, MD 07/11/2025 1:50 PM EDT - 07/11/2025 3:20 PM EDT Surgery [facility] [address] [place] [address] Dorcas Hennessy MD APPLICATION OR REPLACEMENT, WOUND VAC 07/10/2025 3:16 PM EDT Anesthesia Event [facility] [address] [place] [phone] Jason Douglas DO Gibson, Corinne E, MD 07/10/2025 11:35 AM EDT - 07/10/2025 1:45 PM EDT Surgery [facility] [address] [place] [phone] Dorcas Hennessy MD DEBRIDEMENT, WOUND groin 07/10/2025 Travel 07/09/2025 Travel 07/08/2025 8:09 PM EDT Anesthesia Event [facility] OPERATING RO[facility] [address] [place] [address] Yadi Goel MD Johnson, Chandler B, MD 07/08/2025 8:00 PM EDT - 07/08/2025 9:30 PM EDT Surgery [facility] O[facility]ATING [facility] [address] [place] [address] Brittany Crawford MD IRRIGATION AND DEBRIDEMENT, WOUND [[id number] (CPT )] 07/08/2025 5:58 PM EDT - 07/19/2025 12:56 PM EDT Hospital Encounter [facility] Inpatient [address] [place] [address] Kyle Mckinney MD Rodriguez, Rachel D, MD [...] any time in the past 12 m [facility], were you homeless or living in a nursing home (including now)? No 07/15/2025 [facility] Utilities Answer Date Recorded In [...] Sign Reading Time Taken Comments Blood Pressure 141/63 08/03/2025 9:28 PM EDT Pulse 95 08/03/2025 9:28 PM EDT Temperature 37 C (98.6 F) 08/03/2025 9:28 PM EDT Respiratory Rate 20 08/03/2025 9:28 PM EDT Oxygen Saturation 97% 08/03/2025 9:28 PM EDT Inhaled Oxygen Concentration - - Weight 161 kg (356 lb) 08/03/2025 5:15 PM EDT Height 177.8 cm (5' 10 ) 07/09/2025 7:20 PM EDT Body Mass Index 51.08 07/09/2025 7:20 PM EDT Plan of Treatment Upcoming Encounters Date Type Department Care Team (Late st Contact Info) Description 08/20/2025 9:00 AM EDT Office Visit Medical Office Building Urology [address] [facility], [address] [place] [address] Marj Matamoros E, FOOD PREPARATION KITCHEN AIDE [address] [place] [address] 08/20/2025 10:30 AM EDT Office Visit [facility] [address] [place] [address] Lilliana Morfin E, FOOD PREPARATION KITCHEN AIDE [address] [place] [address] Health Maintenance Due Date Last Done Comments [...] 2021 [facility]-Colorectal Cancer Screening 2021 [facility]-Depression Screening 02/28/202502/28/ 024, 08/31/2023 [id number] Vaccine ( season) 2025 [facility]-Influenza Vaccine (#1) 2025 10/11/2024 [facility]-Diabetes: Hemoglobin A1C 10/08/2025 07/09/2025 [facility]- SDOH [...] 08/03/2025 8:40 PM EDT Necrotizing fasciitis (CMS/HCC) POCT GLUCOSE METER UNSOLICITED RESULTS Routine 07/19/2025 [...] 7:09 AM EDT PHOSPHORUS, PLASMA Add-On 07/16/2025 5: [...] ANESTHESIA PLACEHOLDER Routine 07/14/2025 2:53 PM EDT NC AN ELECTIVE ENDOTRACHEAL AIRWAY Routine 07/14/2025 2:53 [...] ANESTHESIA PLACEHOLDER Routine 07/11/2025 2:23 PM EDT NC AN ELECTIVE ENDOTRACHEAL AIRWAY Routine 07/11/2025 2:23 PM EDT APPLICATION OR REPLACEMENT, WOUND VAC 07/11/2025 1:57 PM EDT Necrotizing fasciitis ([facility]/HCC) POCT GLUCOSE METER UNSOLICITED RESULTS Routine 07/11/2025 1:52 PM EDT PEP THERAPY Routine 07/11/2025 1:09 PM EDT POCT GLUCOSE METER UNSOLICITED RESULTS Routine 07/11/2025 12:12 PM EDT POCT GLUCOSE METER UNSOLICITED RESULTS Routine 07/11/2025 9:57 AM EDT NC CRITICAL CARE, E/M 30-74 MINUTES Routine 07/11/2025 8:41 AM EDT Necrotizing fasciitis ([facility]/HCC) Morbid (severe) obesity due to excess calories ([facility]) Septic shock ([facility]) Type 2 diabetes mellitus with hyperglycemia, without long-term current use of insulin ([facility]) Respiratory insufficiency POCT GLUCOSE METER [...] ECG ADULT STAT 07/10/2025 8:42 AM EDT NC CRITICAL CARE, E/M 30-74 MINUTES Routine 07/10/2025 8:15 AM EDT Necrotizing fasciitis (CMS/HCC) Morbid (severe) obesity due to excess calories ([facility]) Septic shock ([facility]) Acute respiratory failure with hypoxia POCT GLUCOSE [...] CO2 MONITORING Routine 07/09/2025 8:00 AM EDT NC CRITICAL CARE, E/M 30-74 MINUTES Routine 07/09/2025 [...] PROCEDURE PLACEHOLDER Routine 07/08/2025 8:37 PM EDT NC AN CENTRAL LINE TRIPLE LUMEN Routine 07/08/2025 8:37 PM EDT PB ANESTHESIA PLACEHOLDER Routine 07/08/2025 8:28 PM EDT NC AN ELECTIVE ENDOTRACHEAL AIRWAY Routine 07/08/2025 8:28 PM EDT ANESTHESIA ARTERIAL LINE PLACEMENT Routine 07/08/2025 8:22 PM EDT NC DEBRIDEMENT, SKIN, SUB-Q TISSUE,=<20 SQ CM 07/08/2025 [...] PANEL, PLASMA STAT 07/08/2025 6:14 PM EDT NC CRITICAL CARE, E/M 30-74 MINUTES Routine 07/08/2025 5:58 PM EDT from Last 3 Months Results * Wound Care Infection Right;Upper;Inner Leg [...] result, infection, nerve damage and incomplete drainage [place] protocol: Patient identity confirmed: Verbally with patient [...] DO IN CLINIC/BEDSIDE ORDERABLES F inal Result * (ABNORMAL) POCT glucose meter (07/19/2025 12:27 PM EDT) Only the most recent of72 resultswithin the time period is included. [facility] POCT Glucose 197(H) 74 - 99 mg/dL [...] Comment 07/19/2025 5:32 PM EDT [facility] Commercial Shrimping Captain ID Laura Baez 025 5:32 PM EDT HEALTHCARE LAB Device ID [id number] 07/19/2025 5:32 PM EDT [facility]ARE [facility] Specimen Type POC Capillary 07/19/2025 5:32 PM EDT [facility] Blood Capillary blood specimen / Unknown 07/19/2025 12:27 PM EDT 07/19/2025 5:32 PM EDT Anne Franco MD LAB POINT OF CARE TEST DOCKED DEVICE UNSOLICITED RESULTS Final Result [facility] [address] [place] [address] * (ABNORMAL) CBC W/O Differential (07/19/2025 4:28 AM EDT) Only the most recent of11 resultswithin the time period is included. [facility] WBC Count 18.39(H) 3.70 - 10.30 10*3/uL LAB HEMATOLOGY METHOD 07/19/2025 4:51 AM EDT [facility] RBC Count 3.50(L) 3.90 - 5.20 10*6/uL LAB HEMATOLOGY METHOD 07/19/2025 4:51 AM EDT [facility] HGB 9.6(L) 11.2 - 15.7 g/dL LAB HEMATOLOGY METHOD 07/19/2025 4:51 AM EDT [facility] HCT 30.7(L) 34.0 - 45.0 % LAB HEMATOLOGY METHOD 07/19/2025 4:51 AM EDT [facility] Platelet Count 627(H) 155 - 369 10*3/uL LAB HEMATOLOGY METHOD 07/19/2025 4:51 AM EDT [facility] MCV 88 79 - 98 fL LAB HEMATOLOGY METHOD 07/19/2025 4:51 AM EDT [facility] MCH 27.4 26.0 - 32.0 pg LAB HEMATOLOGY METHOD 07/19/2025 4:51 AM EDT [facility] MCHC 31.3 30.7 - 35.5 g/dL LAB HEMATOLOGY METHOD 07/19/2025 4:51 AM EDT [facility] RDW 18.2(H) 11.5 - 14.5 % LAB HEMATOLOGY METHOD 07/19/2025 4:51 AM EDT [facility] MPV 10.2 8.8 - 12.5 fL LAB HEMATOLOGY METHOD 07/19/2025 4:51 AM EDT [facility] nRBC 0.1(H) <=0.0 per 100 WBCs LAB HEMATOLOGY METHOD 07/19/2025 4:51 AM EDT [facility] Blood Venous blood specimen / Unknown Venipuncture / Unknown 07/19/2025 4:28 AM EDT 07/19/2025 4:36 AM EDT us Anne Franco MD LAB BLOOD ORDERABLES Sarah bennett Result [facility] [address] [place] [address] * Phosphorus (07/19/2025 4:28 AM EDT) Only the most recent of12 resultswithin the time period is included. Phosphorus, Plasma 3.6 2.5 - 4.5 mg/dL 07/19/2025 5:03 AM EDT [facility] Blood Venous blood specimen / Unknown Venipuncture / Unknown 07/19/2025 4:28 AM EDT 07/19/2025 4:35 AM EDT us Anne Franco MD LAB BLOOD ORDERABLES Sarah l Result Performing Organization Address City/[facility]/ZIP Co de Phone Number [facility] [address] [place] [address] * (ABNORMAL) Magnesium (07/19/2025 4:28 AM EDT) Only the most recent of12 resultswithin the time period is included. Magnesium, Plasma 1.8(L) 1.9 - 2.4 mg/dL 07/19/2025 5:03 AM EDT [facility] Blood Venous blood specimen / Unknown Venipuncture / Unknown 07/19/2025 4:28 AM EDT 07/19/2025 4:35 AM EDT us Anne Franco MD LAB BLOOD ORDERABLES Sarah l Result Performing Organization Address [facility] Co de Phone Number [facility] [address] [place] [address] * (ABNORMAL) Basic metabolic panel (07/19/2025 4:28 AM EDT) Only the most recent of13 resultswithin the time period is included. Glucose, Plasma 153(H) 74 - 99 mg/dL 07/19/2025 5:03 AM EDT [facility] BUN, Plasma 14 7 - 21 mg/dL 07/19/2025 5:03 AM EDT [facility] Creatinine, Plasma 0.73 0.60 - 1.10 mg/dL 07/19/2025 5:03 AM EDT [facility] BUN/Creatinine Ratio 19 07/19/2025 5:03 AM EDT [facility] Sodium, Plasma 137 136 - 145 mmol/L 07/19/2025 5:03 AM EDT [facility] Potassium, Plasma 4.3 3.6 - 4.9 mmol/L 07/19/2025 5:03 AM EDT [facility] Chloride, Plasma 97 97 - 107 mmol/L 07/19/2025 5:03 AM EDT [facility] CO2, Plasma 28 22 - 29 mmol/L 07/19/2025 5:03 AM EDT [facility] Anion Gap 12 6 - 16 mmol/L 07/19/2025 5:03 AM EDT [facility] Total Calcium, Plasma 9.0 8.9 - 10.2 mg/dL 07/19/2025 5:03 AM EDT [facility] eGFRcr 101.0 mL/min/1.7 3m*2 07/19/2025 5:03 AM EDT [facility] Comment:Reported eGFRcr in m L/min/1.73m2 is based the CKD-EPI 2020 equation that does not use a race coefficient. Blood Venous blood specimen / Unknown Venipuncture / Unknown 07/19/2025 4:28 AM EDT 07/19/2025 4:35 AM EDT Anne Franco MD LAB BLOOD ORDERABLES Sarah l Result [facility] [address] [place] [address] * PERIPHERAL IV (SMARTFORM LINK) (07/17/2025 5:14 [...] Detected Not Detected 07/17/2025 12:11 PM EDT [facility] Swab Both anterior nares / Unknown Non-blood Collection / Unknown 07/17/2025 10:14 AM EDT 07/17/2025 10:33 AM EDT Narrative [facility] - 07/17/2025 12:11 PM [...] MICROBIOLOGY - GENERAL ORDER LUANNE Final Result [facility] [address] [place] [address] * XR Chest 1 View (07/16/2025 11:25 [...] CV VASCULAR PROCEDURES Fi nal Result * NC AN ELECTIVE ENDOTRACHEAL AIRWAY, PB ANESTHESIA PLACEHOLDER (07/14/2025 2:53 PM EDT) Narrative Azul Eisenberg CRNA, DNP - 07/14/2025 2:53 PM EDT Azul Eisenberg CRNA, DNP 07/14/2025 3:04 PM Airway Date/Time: 07/14/2025 2:53 PM Reason: elective Airway not difficult General Information and Staff Patient location during procedure: OR INVESTMENT ANALYST: Auzl Eisenberg CRNA, DNP Performed: INVESTMENT ANALYST Patient Condition Indications for airway management: anesthesia [...] Comments Atraumatic. No change to dentition. us Sharif Taylor MD ANESTHESIA ORDERABLES Final Re sult * (ABNORMAL) POCT Glucose (if patient NPO, on TPN or continuous nutrition) (07/11/2025 8:45 PM EDT) Only the most recent of2 resultswithin the time period is included. POCT Glucose 119(A) 74 - 99 mg/dL [facility] Test Strip Lot Number \[id number]\ [facility] Test Strip Expiration 09/24/2026 [facility] Blood Venous blood specimen / Unknown 07/11/2025 8:45 PM EDT Dorcas Hennessy MD POINT OF CARE TEST ENTER/EDIT OR DERABLES Final Result [facility] [address] [place] [address] * NC AN ELECTIVE ENDOTRACHEAL AIRWAY, PB ANESTHESIA PLACEHOLDER (07/11/2025 2:23 PM EDT) Narrative Luis Manuel Sharpe CRNA - 07/11/2025 2:23 PM EDT Luis Manuel Sharpe CRNA 07/11/2025 2:37 PM Airway Date/Time: 07/11/2025 2:23 PM Reason: elective Airway not difficult General Information and Staff Patient location during procedure: OR INVESTMENT ANALYST: Luis Manuel Sharpe CRNA Performed: INVESTMENT ANALYST Patient Condition Indications for airway management: anesthesia [...] Additional Comments Atraumatic. No change to dentition. Eddie Fulton MD ANESTHESIA ORDERABLES Final Res ult * NC CRITICAL CARE, E/M 30-74 MINUTES (07/11/2025 8:41 [...] able. OR today for possible wound VAC. Drocas Hennessy MD, PhD Acute Care Surgery, Trauma and Surgical Critical Care us Dorcas Hennessy MD IN CLINIC/BEDSIDE ORDERABLES Fin al Result * (ABNORMAL) Blood gas panel, arterial (07/10/2025 8:23 PM EDT) Only the most recent of6 resultswithin the time period is included. pH, Arterial 7.30(L) 7.35 - 7.45 LAB HEMATOLOGY METHOD 07/10/2025 8:40 PM EDT [facility] pCO2, Arterial 57(H) 35 - 48 mmHg LAB HEMATOLOGY METHOD 07/10/2025 8:40 PM EDT [facility] pO2, Arterial 80(L) 83 - 108 mmHg LAB HEMATOLOGY METHOD 07/10/2025 8:40 PM EDT [facility] SO2, Measured, Arterial 95 94 - 98 % LAB HEMATOLOGY METHOD 07/10/2025 8:40 PM EDT [facility] Base Excess, Arterial 1.1 -2.0 - 3.0 mmol/L LAB HEMATOLOGY METHOD 07/10/2025 8:40 PM EDT [facility] Bicarbonate, Calculated, Arterial 28(H) 22 - 26 mmol/L LAB HEMATOLOGY METHOD 07/10/2025 8:40 PM EDT [facility] Hematocrit, Whole Blood 31.5(L) 34.0 - 45.0 % LAB HEMATOLOGY METHOD 07/10/2025 8:40 PM EDT [facility] Sodium, Whole Blood 138 136 - 145 mmol/L LAB HEMATOLOGY METHOD 07/10/2025 8:40 PM EDT [facility] Potassium, Whole Blood 3.9 3.6 - 4.9 mmol/L LAB HEMATOLOGY METHOD 07/10/2025 8:40 PM EDT [facility] Chloride, Whole Blood 103 97 - 107 mmol/L LAB HEMATOLOGY METHOD 07/10/2025 8:40 PM EDT [facility] Glucose, Whole Blood 206(H) 74 - 99 mg/dL LAB HEMATOLOGY METHOD 07/10/2025 8:40 PM EDT [facility] Ionized Calcium, Whole Blood 5.0 4.6 - 5.1 mg/dL LAB HEMATOLOGY METHOD 07/10/2025 8:40 PM EDT [facility] Lactate, Arterial, Whole Blood 1.7(H) 0.5 - 1.6 mmol/L LAB HEMATOLOGY METHOD 07/10/2025 8:40 PM EDT [facility] Blood Arterial blood specimen / Unknown Arterial Puncture / Unknown 07/10/2025 8:23 PM EDT 07/10/2025 8:35 PM EDT us Brittany Crawford MD LAB BLOOD ORDERABLES Final Result [facility] [address] [place] [address] * XR Abdomen 1 View (07/10/2025 12:03 [...] of the abdomen. COMPARISON: None. FINDINGS: Limited [id number] abdominal radiograph for the purpose of locating tube position. The tip of the nasogastric tube is within the mid stomach. Procedure Note Bernabe Sen MD - 07/10/2025 CLINICAL INDICATION: feeding tube placement TECHNIQUE: Supine radiograph of the abdomen. COMPARISON: None. FINDINGS: Limited [id number] abdominal radiograph for the purpose of locatingtube [...] ECG Atrial Rate 79 BPM MUSE ECG NC Interval 188 ms MUSE ECG QRSD Interval 90 ms MUSE ECG QT Interval 354 ms MUSE ECG QTC Interval 405 ms MUSE ECG P Lotus 44 degrees MUSE ECG R Lotus 17 degrees MUSE ECG T Wave Lotus 27 degrees MUSE ECG Diagnosis Sinus rhythm [...] ORDERABLES Final Resu lt MUSE ECG * NC CRITICAL CARE, E/M 30-74 MINUTES (07/10/2025 8:15 [...] day 5 KAROLINA 07/14/2025 12:02 PM EDT [facility] Blood Structure of antecubital vein / Unknown Venipuncture / Unknown 07/09/2025 10:35 AM EDT 07/09/2025 10:50 AM EDT us Kyle Mckinney MD LAB MICROBIOLOGY - GENE RAL ORDERABLES Final Result Performing Organization Address [facility] de Phone Number [facility] [address] [place] [address] * Multi Drug Resistance Test (07/09/2025 9:46 AM EDT) Only the most recent of2 resultswithin the time period is included. Culture No growth at day 1 07/10/2025 11:58 AM EDT [facility] Swab (Nares and Leann Rectal) Non-blood Collection / Unknown 07/09/2025 9:46 AM EDT 07/09/2025 10:09 AM EDT Narrative [facility] - 07/10/2025 11:58 AM EDT This test was developed and its performance characteristics determined by the [facility]. Although the media is FDA-approved, it is not FDA-approved for all specimen types submitted. The FDA has determined that such clearance or approval is not necessary. This test is used for surveillance purposes. It should not be regarded as investigational or for research. The [facility] is certified under the Clinical Laboratory Improvement Amendments of 1988 (CLIA-88) as qualified to perform high complexity clinical laboratory testing. us Brittany Crawford MD LAB MICROBIOLOGY - GENERAL ORDERABLES Final Result Performing Organization Address City/[facility] [place] [address] * [place] CRITICAL CARE, E/M 30-74 MINUTES (07/09/2025 7:15 [...] 7.5(H) <5.7 % 07/09/2025 12:09 PM EDT [facility] Blood Arterial blood specimen / Unknown Venipuncture / Unknown 07/09/2025 4:57 AM EDT 07/09/2025 5:07 AM EDT Narrative [facility] - 07/09/2025 12:09 PM EDT HA1C Interpretive Data: Diagnosis of Diabetes: Diabetic > or = 6.5% Pre-diabetic 5.7 to 6.4% Non-diabetic < or = 5.6% Glycemic Targets for Type I and Type II Diabetics: Non- Adults <7.0% Adults <6.0% Children and Adolescents <7.5% Source: [place] [employer]. Standards of medical care in diabetes,2017. Diabetes Care.2017:40 (suppl 1):S1-S135. us Dorcas Hennessy MD LAB BLOOD ORDERABLES Final Resul t [facility] [address] [place] [address] * APTT (07/08/2025 11:53 PM EDT) aPTT 25 25 - 35 sec LAB COAGULATION METHOD 07/09/2025 12:32 AM EDT [facility] Blood Venous blood specimen / Unknown Venipuncture / Unknown 07/08/2025 11:53 PM EDT 07/08/2025 11:59 PM EDT Brittany Crawford MD LAB BLOOD ORDERABLES Final Result Performing Organization Address City/[facility]/ZIP Co de Phone Number [facility] [address] [place] [address] * (ABNORMAL) Protime-INR (07/08/2025 11:53 PM EDT) Only the most recent of2 resultswithin the time period is included. Prothrombin Time 15.2(H) 12.0 - 14.3 sec LAB COAGULATION METHOD 07/09/2025 12:32 AM EDT [facility] INR 1.2(H) 0.9 - 1.1 LAB COAGULATION METHOD 07/09/2025 12:32 AM EDT [facility] Blood Venous blood specimen / Unknown Venipuncture / Unknown 07/08/2025 11:53 PM EDT 07/08/2025 11:59 PM EDT Narrative [facility] - 07/09/2025 12:32 AM [...] of recurrent IA INR 2.5 to 3.5 Brittany Crawford MD LAB BLOOD ORDERABLES Final Result Performing Organization Address City/[facility]/ZIP Co de Phone Number [facility] [address] [place] [address] * Geno auris Surveillance by PCR (07/08/2025 11:50 PM EDT) Geno auris PCR Result Not Detected Not Detected 07/09/2025 11:26 AM EDT [facility] Swab (Axilla and Groin) Non-blood Collection / Unknown 07/08/2025 11:50 PM EDT 07/09/2025 12:17 AM EDT Narrative [facility] - 07/09/2025 11:26 AM EDT This PCR assay was developed and its performance characteristics determined by [facility] as appropriate for clinical purposes. This assay has not been cleared or approved by the FDA, but is performed in a CLIA regulated laboratory that is qualified to perform high-complexity testing. Brittany Crawford MD LAB MICROBIOLOGY - GENERAL ORDERABLES Final Result [facility] [address] [place] [address] * (ABNORMAL) Tissue Culture and Gram Stain (07/08/2025 10:48 PM EDT) Culture Light Growth 07/13/2025 1:13 PM EDT [facility] Culture 1+ Schaalia turicensis (formerly known as Actinomyces turicensis)(A) 07/13/2025 1:13 PM EDT [facility] Comment: The organism value for this result has been updated. These results have been appended to the previously preliminary verified report. This is a corrected result. Previous organism was Gram positive anthony on 07/11/2025 at 1052 EDT. Culture 1+ Staphylococcus hominis(A) 07/13/2025 1:13 PM EDT [facility] Comment: This isolate has been identified using the FDA Approved [employer]DI [employer] CA System The organism value for this result has been updated. These results have been appended to the previously preliminary verified report. Gram Stain Result Few Polymorphonuclear leukocytes(A) 07/13/2025 1:13 PM EDT [facility] Gram Stain Result Numerous Gram negative rods(A) 07/13/2025 1:13 PM EDT [facility] Gram Stain Result Few Gram positive cocci in pairs(A) 07/13/2025 1:13 PM EDT [facility] Tissue Topography unknown / Unknown 07/08/2025 10:48 PM EDT 07/09/2025 12:14 AM EDT Comment:Pre-op diagnosis: Necrotizing fasciitis (CMS/HCC) [M72.6] Brittany Crawford MD LAB MICROBIOLOGY - GENERAL ORDERABLES Final Result [facility] [address] [place] [address] * Transfuse fresh frozen plasma (07/08/2025 10:35 PM EDT) Only the most recent of2 resultswithin the time period is included. Richard Carlos Yoshahnazkangg INVESTMENT ANALYST BLOOD TRANSFUSION ORDERAB LES Final Result * Transfuse RBC (07/08/2025 10:29 PM EDT) Only the most recent of2 resultswithin the time period is included. Richard N Yongkangg INVESTMENT ANALYST BLOOD TRANSFUSION ORDERAB LES Final Result * Surgical Pathology Exam (07/08/2025 10:07 PM EDT) Case Report Surgical Pathology Case: [id number] Authorizing Provider: Brittany Crawford MD Collected: 07/08/20257 Ordering Location: [facility] OPERATING ROOM Received: 07/09/2025 0740 Pathologist: Boaz Fernandez MD Specimens: A) - Other (specify site), saphenous vein B) - Other (specify site), right leg 07/10/2025 3:45 PM EDT [facility] Final Diagnosis A. SAPHENOUS VEIN SEGMENT, REMOVAL: - SCLEROTIC VEIN WITH ADVENTITIAL INFLAMMATION. B. RIGHT LEG TISSUE DEBRIDEMENT: - ACUTE NECROTIZING FASCIITIS OF SKIN AND SOFT TISSUE. 07/10/2025 3:45 PM EDT [facility] at 1545 EDT Clinical Information Necrotizing fasciitis; post recent boil self popped wound. 50 y.o. female with PMH of DM, hidradenitis supparativa, current smoker (1.5 ppd), UTI, depression, anxiety, asthma, HLD, Celiac disease, 07/10/2025 3:45 PM EDT [facility] Gross Description A. SAPHENOUS VEIN Specimen is received fresh and placed in formalin labeled saphenous vein. Received is a segment of vessel that measures 8.5 cm in length and up to 0.7 cm in diameter. Specimen is sectioned to reveal a pinpoint lumen with dried blood. Cocktail Lounge Manager sections are taken and submitted in cassette A1. Cold Time: 8h 56m Abhishek Baptiste MD B. RIGHT LEG Specimen is received fresh labeled right leg. Received are numerous fragments of skin and underlying soft tissue that measure in aggregate 25.0 x 25.0 x 7.5 cm. Scattered areas of skin and soft tissue notable for being green-black, foul-smelling and extensively necrotic. Cocktail Lounge Manager sections are taken and submitted in cassettes B1-B2. Abhishek Baptiste MD 07/10/2025 3:45 PM EDT [facility] Note: A resident was involved in the service. I attest I examined the relevant preparations for the specimens and confirmed the diagnosis or interpretation. 07/10/2025 3:45 PM EDT [facility] Tissue Topography unknown / Unknown 07/08/2025 10:07 PM EDT 07/09/2025 7:40 AM EDT Comment:Pre-op diagnosis: Necrotizing fasciitis (CMS/HCC) [M72.6] Tissue specimen (specimen) Topography unknown / Unknown 07/08/2025 10:49 PM EDT 07/09/2025 7:40 AM EDT Comment:Pre-op diagnosis: Necrotizing fasciitis (CMS/HCC) [M72.6] us Brittany Crawford MD LAB PATHOLOGY ORDERABLES F inal Result [facility] [address] [place] [address] * Prepare Fresh Frozen Plasma: 2 Units (07/08/2025 9:24 PM EDT) Product Code H5252V20 [facility] BLOO D BANK Dispense Status Transfused BLOOD BANK Blood Expiration Date [id number] BLOOD BANK Unit Number [id number] CH B LOOD BANK Product Blood Type 5100 BLOOD BANK Blood Type O+ CH BLOOD BANK Product Code A0346S85 [facility] BLOO D BANK Dispense Status Transfused BLOOD BANK Blood Expiration Date [id number] BLOOD BANK Unit Number [id number] CH B LOOD BANK Product Blood Type 5100 BLOOD BANK Blood Type O+ BLOOD BANK Blood Venous blood specimen / Unknown Richard Betts CRNA BLOOD BANK PRODUCT ORDERA BLES Final Result Performing Organization Address [facility] Co de Phone Number BLOOD BANK [address] [place] [address], * Prepare Leukocyte Reduced RBC: 2 Units (07/08/2025 9:23 PM EDT) Product Code C7637J41 [facility] BLOO D BANK Dispense Status Transfused BLOOD BANK Blood Expiration Date BLOOD BANK Unit Number [id number] CH B LOOD BANK Product Blood Type 5100 BLOOD BANK Blood Type O+ CH BLOOD BANK Crossmatch Compatible BLOOD BANK Product Code [id number] BLOO D BANK Dispense Status Transfused BLOOD BANK Blood Expiration Date BLOOD BANK Unit Number [id number] CH B LOOD BANK Product Blood Type 5100 BLOOD BANK Blood Type O+ BLOOD BANK Crossmatch Compatible BLOOD BANK Other [facility] Carlos Betts CRNA BLOOD BANK PRODUCT ORDERA BLES Final Result Performing Organization Address [facility] de Phone Number BLOOD BANK [address] * (ABNORMAL) Abscess Culture and Gram Stain (07/08/2025 9:06 PM EDT) Culture Light Growth 07/13/2025 1:13 PM EDT [facility] Culture 1+ Mixed skin silvestre(A) 07/13/2025 1:13 PM EDT [facility] Comment: The organism value [...] as Actinomyces turicensis)(A) 07/13/2025 1:13 PM EDT [facility] Comment: This result was determined by MALDI tof Mass spectrometry. This assay was developed and its performance characteristics determined by [facility] as appropriate for clinical [...] Gram positive cocci(A) 07/13/2025 1:13 PM EDT [facility] Gram Stain Result Few Gram variable rods(A) 07/13/2025 1:13 PM EDT [facility] Gram Stain Result Moderate Gram positive rods(A) 07/13/2025 1:13 PM EDT [facility] Gram Stain Result Numerous Gram negative rods(A) 07/13/2025 1:13 PM EDT [facility] Gram Stain Result Numerous Gram negative coccobacilli(A) 07/13/2025 1:13 PM EDT [facility] Gram Stain Result Moderate Polymorphonuclear leukocytes(A) 07/13/2025 1:13 PM EDT [facility] Swab Topography unknown / Unknown 07/08/2025 9:06 PM EDT 07/08/2025 9:15 PM EDT Comment:Pre-op diagnosis: Necrotizing fasciitis (CMS/[facility]) [M72.6] us Brittany Crawford MD LAB MICROBIOLOGY - GENERAL ORDERABLES Final Result [facility] [address] [place] [address] * (ABNORMAL) POCT arterial blood gas gem (07/08/2025 8:51 PM EDT) pH, Arterial 7.28(L) 7.35 - 7.45 07/08/2025 8:53 PM EDT [facility] pCO2, Arterial 53(H) 35 - 48 mm Hg 07/08/2025 8:53 PM EDT [facility] pO2, Arterial 152(H) 83 - 108 mm Hg 07/08/2025 8:53 PM EDT [facility] SO2, Arterial 99(H) 94 - 98 % 07/08/2025 8:53 PM EDT [facility] Base Excess, Arterial -2.3(L) -2 - 3 mmol/L 07/08/2025 8:53 PM EDT [facility] HCO3, Arterial 24.9 22 - 26 mmol/L 07/08/2025 8:53 PM EDT [facility] Total Hemoglobin, Arterial, Whole Blood 10.9(L) 11.2 - 15.7 g/dL 07/08/2025 8:53 PM EDT [facility] Hematocrit, Arterial 33.0(L) 34.0 - 45.0 % 07/08/2025 8:53 PM EDT [facility] Sodium, Arterial 131(L) 136 - 145 mmol/L 07/08/2025 8:53 PM EDT [facility] Potassium, Arterial 3.8 3.6 - 4.9 mmol/L 07/08/2025 8:53 PM EDT [facility] Chloride, Whole Blood 98 97 - 107 mmol/L 07/08/2025 8:53 PM T [facility] Glucose, Arterial 418(H) 74 - 99 mg/dL 07/08/2025 8:53 PM EDT [facility] Ionized Calcium, Arterial 4.9 4.6 - 5.1 mg/dL 07/08/2025 8:53 PM EDT [facility] Lactate, Arterial 1.6 0.5 - 1.6 mmol/L 07/08/2025 8:53 PM EDT [facility] Body Temperature 37.0 Celsius 07/08/2025 8:53 PM EDT [facility] pH, Temp Corrected, Arterial 7.28(L) 7.35 - 7.45 07/08/2025 8:53 PM EDT [facility] pCO2, Temp Corrected, Arterial 53(H) 35 - 48 mm Hg 07/08/2025 8:53 PM EDT [facility] pO2, Temp Corrected, Arterial 152(H) 83 - 108 mm Hg 07/08/2025 8:53 PM EDT [facility] Commercial Shrimping Captain ID Yadi Goel 07/08/2025 8:53 PM EDT [facility] Blood, Arterial Whole blood specimen / Unknown 07/08/2025 8:51 PM EDT 07/08/2025 8:53 PM EDT us Brittany Crawford MD LAB POINT OF CARE TEST DOCKED DEVICE UNSOLICITED RESULTS Final Result [facility] [address] [place] [id number] * NC AN CENTRAL LINE TRIPLE LUMEN, PB ANESTHESIA [...] MD ANESTHESIA ORDERABLES Final R esult * NC AN ELECTIVE ENDOTRACHEAL AIRWAY, PB ANESTHESIA PLACEHOLDER (07/08/2025 8:28 PM EDT) Narrative Richard Betts CRNA - 07/08/2025 8:28 PM EDT Richard Betts CRNA 07/08/2025 8:39 PM Airway Date/Time: 07/08/2025 8:28 PM Reason: elective Airway not difficult General Information and Staff Patient location during procedure: OR INVESTMENT ANALYST: Richard Betts CRNA Performed: INVESTMENT ANALYST Patient Condition Indications for airway management: anesthesia [...] 1/2 Differentiation (07/08/2025 6:14 PM EDT) Pathologist [facility] HIV 1 & 2 Antibody/Antigen Screen Non Reactive Non Reactive 07/08/2025 7:12 PM EDT [facility] Comment:Screening for HIV 1 & 2 antibodies, and P24 antigen is NONREACTIVE. No confirmatory testing is required. Blood Venous blood specimen / Unknown Venipuncture / Unknown 07/08/2025 6:14 PM EDT 07/08/2025 6:30 PM EDT Kyle Mckinney MD LAB BLOOD ORDERABLES Fi nal Result [facility] [address] [place] [address] * (ABNORMAL) Lactic acid, venous (07/08/2025 6:14 PM EDT) [facility] Lactate, Venous, Whole Blood 2.6(H) 0.5 - 2.2 mmol/L LAB HEMATOLOGY METHOD 07/08/2025 6:29 PM EDT [facility] Blood Venous blood specimen / Unknown Venipuncture / Unknown 07/08/2025 6:14 PM EDT 07/08/2025 6:23 PM EDT Kyle Mckinney MD LAB BLOOD ORDERABLES Fi nal Result Performing Organization Address City/[facility]/ZIP Co de Phone Number [facility] [address] [place] [address] * Hepatitis C Antibody - ED (07/08/2025 6:14 PM EDT) [facility] Hepatitis C Antibody Negative Negative 07/08/2025 7:12 PM EDT [facility] Blood Venous blood specimen / Unknown Venipuncture / Unknown 07/08/2025 6:14 PM EDT 07/08/2025 6:30 PM EDT Kyle Mckinney MD LAB BLOOD ORDERABLES Fi nal Result Performing Organization Address City/[facility]/ZIP Co de Phone Number [facility] [address] [place] [address] * (ABNORMAL) CBC w/diff (07/08/2025 6:14 PM EDT) [facility] Signature WBC Count 26.15(H) 3.70 - 10.30 10*3/uL LAB HEMATOLOGY METHOD 07/08/2025 9:04 PM EDT [facility] RBC Count 3.97 3.90 - 5.20 10*6/uL LAB HEMATOLOGY METHOD 07/08/2025 9:04 PM EDT [facility] HGB 10.9(L) 11.2 - 15.7 g/dL LAB HEMATOLOGY METHOD 07/08/2025 9:04 PM EDT [facility] HCT 33.6(L) 34.0 - 45.0 % LAB HEMATOLOGY METHOD 07/08/2025 9:04 PM EDT [facility] Platelet Count 329 155 - 369 10*3/uL LAB HEMATOLOGY METHOD 07/08/2025 9:04 PM EDT [facility] MCV 85 79 - 98 fL LAB HEMATOLOGY METHOD 07/08/2025 9:04 PM EDT [facility] MCH 27.5 26.0 - 32.0 pg LAB HEMATOLOGY METHOD 07/08/2025 9:04 PM EDT [facility] MCHC 32.4 30.7 - 35.5 g/dL LAB HEMATOLOGY METHOD 07/08/2025 9:04 PM EDT [facility] RDW 17.3(H) 11.5 - 14.5 % LAB HEMATOLOGY METHOD 07/08/2025 9:04 PM EDT [facility] MPV 10.1 8.8 - 12.5 fL LAB HEMATOLOGY METHOD 07/08/2025 9:04 PM EDT [facility] nRBC 0.0 <=0.0 per 100 WBCs LAB HEMATOLOGY METHOD 07/08/2025 9:04 PM EDT [facility] Differential Type Automated LAB HEMATOLOGY METHOD 07/08/2025 9:04 PM EDT [facility] Neutrophils % 91 % LAB HEMATOLOGY METHOD 07/08/2025 9:04 PM EDT [facility] Lymphocytes % 4 % LAB HEMATOLOGY METHOD 07/08/2025 9:04 PM EDT [facility] Monocytes % 4 % LAB HEMATOLOGY METHOD 07/08/2025 9:04 PM EDT [facility] Eosinophils % 0 % LAB HEMATOLOGY METHOD 07/08/2025 9:04 PM EDT [facility] Basophils % 0 % LAB HEMATOLOGY METHOD 07/08/2025 9:04 PM EDT [facility] Immature Granulocytes % 1 % LAB HEMATOLOGY METHOD 07/08/2025 9:04 PM EDT [facility] Neutrophils Absolute 23.61(H) 1.60 - 6.10 10*3/uL LAB HEMATOLOGY METHOD 07/08/2025 9:04 PM EDT [facility] Lymphocytes Absolute 1.15(L) 1.20 - 3.90 10*3/uL LAB HEMATOLOGY METHOD 07/08/2025 9:04 PM EDT [facility] Monocytes Absolute 0.98(H) 0.30 - 0.90 10*3/uL LAB HEMATOLOGY METHOD 07/08/2025 9:04 PM EDT [facility] Eosinophils Absolute 0.04 0.00 - 0.50 10*3/uL LAB HEMATOLOGY METHOD 07/08/2025 9:04 PM EDT [facility] Basophils Absolute 0.09 0.00 - 0.10 10*3/uL LAB HEMATOLOGY METHOD 07/08/2025 9:04 PM EDT [facility] Immature Granulocytes Absolute 0.25(H) 0.00 - 0.06 10*3/uL LAB HEMATOLOGY METHOD 07/08/2025 9:04 PM EDT [facility] Blood Venous blood specimen / Unknown Venipuncture / Unknown 07/08/2025 6:14 PM EDT 07/08/2025 6:23 PM EDT Narrative [facility] - 07/08/2025 9:04 PM EDT Therapeutic decision making should be based on absolute values, rather than percentages. us Kyle Mckinney MD LAB BLOOD ORDERABLES Fi nal Result [facility] [address] [place] [address] * Type and screen (07/08/2025 6:14 PM [...] ORD ERABLES Final Result Performing Organization Address [facility] de Phone Number BLOOD BANK [address] [place] [address], * (ABNORMAL) C-Reactive protein (07/08/2025 6:14 PM EDT) CRP, Plasma 462.2(H) <=8.0 mg/L 07/08/2025 7:18 PM EDT [facility] Blood Venous blood specimen / Unknown Venipuncture / Unknown 07/08/2025 6:14 PM EDT 07/08/2025 6:23 PM EDT Narrative [facility] - 07/08/2025 7:18 PM EDT This CRP test is appropriate for assessment of infection, systemic inflammation and/or tissue injury. To assess cardiovascular disease risk order high sensitivity CRP (CRPH). Kyle Mckinney MD LAB BLOOD ORDERABLES Fi nal Result Performing Organization Address [facility] Co de Phone Number [facility] [address] [place] [address] * (ABNORMAL) CMP (07/08/2025 6:14 PM EDT) Glucose, Plasma 411(H) 74 - 99 mg/dL 07/08/2025 7:18 PM EDT [facility] BUN, Plasma 33(H) 7 - 21 mg/dL 07/08/2025 7:18 PM EDT [facility] Creatinine, Plasma 1.99(H) 0.60 - 1.10 mg/dL 07/08/2025 7:18 PM EDT [facility] BUN/Creatinine Ratio 17 07/08/2025 7:18 PM EDT [facility] Sodium, Plasma 131(L) 136 - 145 mmol/L 07/08/2025 7:18 PM EDT [facility] Potassium, Plasma 4.0 3.6 - 4.9 mmol/L 07/08/2025 7:18 PM EDT [facility] Chloride, Plasma 93(L) 97 - 107 mmol/L 07/08/2025 7:18 PM EDT [facility] CO2, Plasma 22 22 - 29 mmol/L 07/08/2025 7:18 PM EDT [facility] Anion Gap 16 6 - 16 mmol/L 07/08/2025 7:18 PM EDT [facility] Total Calcium, Plasma 9.3 8.9 - 10.2 mg/dL 07/08/2025 7:18 PM EDT [facility] Total Protein 6.0(L) 6.3 - 7.9 g/dL 07/08/2025 7:18 PM EDT [facility] Albumin, Plasma 2.6(L) 3.5 - 5.2 g/dL 07/08/2025 7:18 PM EDT [facility] AST, Plasma 16 10 - 35 U/L 07/08/2025 7:18 PM EDT [facility] ALT, Plasma 15 10 - 35 U/L 07/08/2025 7:18 PM EDT [facility] Alkaline Phosphatase, Plasma 165(H) 35 - 104 U/L 07/08/2025 7:18 PM EDT [facility] Total Bilirubin, Plasma 0.4 0.2 - 1.1 mg/dL 07/08/2025 7:18 PM EDT [facility] eGFRcr 30.3 mL/min/1.7 3m*2 07/08/2025 7:18 PM EDT [facility] Comment:Reported eGFRcr in m L/min/1.73m2 is based the CKD-EPI 2020 equation that does not use a race coefficient. Blood Venous blood specimen / Unknown Venipuncture / Unknown 07/08/2025 6:14 PM EDT 07/08/2025 6:23 PM EDT us Kyle Mckinney MD LAB BLOOD ORDERABLES Fi nal Result [facility] [address] [place] [address] * [place] CRITICAL CARE, E/M 30-74 MINUTES (07/08/2025 5:58 [...] Final Result from Last 3 Months Insurance Care Teams Bore Mill Operator Relationship Specialty Start Date End Date Yenny Dhillon APRN [id number] [phone] PCP - General 07/22/23
--- NOTE | 2025-08-11 12:08 | HMH.EDGENADL ---
Discharge Plan Disposition Patient Disposition: Home, Self-Care Condition: Good Prescriptions Prescriptions: New levofloxacin 750 mg tablet 750 mg PO DAILY 5 Days Qty: 5 0RF No Action (DME) Blood Glucose Test Strip See Rx Instructions .Route Qty: 50 3RF Rx Instructions: BID naproxen 500 mg tablet 500 mg PO BID Patient Comments: TAKE 1 TABLET BY MOUTH TWICE DAILY WITH FOOD cholecalciferol (vitamin D3) 125 mcg (5,000 unit) tablet 125 mcg PO DAILY Patient Comments: TAKE 1 TABLET BY MOUTH ONCE DAILY folic acid 1 mg tablet 1 mg PO DAILY Myrbetriq 25 mg tablet extended release 24 hr 25 mg PO DAILY Ozempic 0.25 mg or 0.5 mg (2 mg/3 mL) pen injector 0.25 mg SQ WEEKLY lamotrigine 100 mg tablet extended release 24hr 100 mg PO DAILY Patient Comments: TAKE 1 TABLET BY MOUTH ONCE DAILY AT NIGHT AT BEDTIME DIRECTED metoprolol succinate [Toprol XL] 100 mg tablet extended release 24 hr 100 mg PO DAILY Qty: 30 6RF albuterol sulfate 90 mcg/actuation HFA aerosol inhaler 2 inh IH Q6H PRN (Reason: shortness of breath or wheezing) 90 Days Qty: 8.5 3RF budesonide-formoterol [Symbicort] 160-4.5 mcg/actuation HFA aerosol inhaler 2 puff IH BID 90 Days Qty: 10.2 3RF fluticasone propionate [Flonase Allergy Relief] 50 mcg/actuation spray,suspension 2 spray NS DAILY PRN (Reason: allergy symptoms) 90 Days Qty: 16 3RF Rx Instructions: administer into each nostril montelukast 10 mg tablet 10 mg PO QPM 90 Days Qty: 90 2RF loratadine 10 mg tablet 10 mg PO DAILY Patient Comments: TAKE 1 TABLET BY MOUTH ONCE DAILY ipratropium-albuterol 0.5 mg-3 mg(2.5 mg base)/3 mL solution for nebulization 3 ml INHALATION Q6H PRN (Reason: shortness of breath or wheezing) Qty: 180 3RF Linzess 72 mcg capsule 72 mcg PO DAILY Patient Comments: TAKE 1 CAPSULE BY MOUTH ONCE DAILY FOR CONSTIPATION buspirone 15 mg tablet 15 mg PO TIDP PRN (Reason: Anxiety) Patient Comments: TAKE 1 TABLET BY MOUTH THREE TIMES DAILY NEEDED rosuvastatin 20 mg tablet 20 mg PO HS Patient Comments: TAKE 1 TABLET BY MOUTH ONCE DAILY duloxetine 60 mg capsule,delayed release(DR/EC) 60 mg PO DAILY Patient Comments: TAKE 1 CAPSULE BY MOUTH ONCE DAILY DIRECTED valsartan-hydrochlorothiazide 320-12.5 mg tablet 1 tab PO DAILY Patient Comments: TAKE 1 TABLET BY MOUTH ONCE DAILY metformin 500 mg tablet 500 mg PO DAILY Rx Instructions: Take 1 tablet by mouth twice daily Referrals Follow up/Referrals: Yenny Dhillon APRN [Primary Care Provider, Medical] - See instructions Activity Restrictions/Add. Instructions Additional Instructions/Restrictions: Please take Levaquin as prescribed for UTI. If you have any more trouble with your catheter please return Clinical Impressions Clinical Impression: Complicated urinary tract infection Complication of Iqbal catheter Qualifiers: Encounter type: initial encounter Qualified Code(s): T83.9XXA - Unspecified complication of genitourinary prosthetic device, implant and graft, initial encounter Instructions Patient Instructions: DI for Urinary Tract Infection (UTI) Print Language Print Language: [place]une[place] Discharge ED Provider: Rob Guillory Adult HPI General Chief complaint: Urogenital-Female Stated complaint: Catheter leak Time Seen by Provider: 08/11/25 11:05 Mode of Arrival: Ambulatory Source of Information: Patient Description of Symptoms (Recalled from ER Triage Doc. by RN): PATIENT PRESENTS TO ED FOR CATHETER PROBLEM THAT STARTED LAST NIGHT. PT CURRENTLY HAS INDWELLING CATHETER PLACED BY [facility] 4 WEEKS AGO. REPORTS THAT IT IS LEAKING AND SHE HAS PAIN AT THE [facility]RETHRA. History of Present Illness HPI narrative: This is a 50-year-old female patient, with past medical history of hypertension, hyperlipidemia, and diabetes, who is presenting to the emergency department today for evaluation of her Iqbal catheter. Patient states that in the beginning of July she had a boil that appeared on her right groin. She presented to the [facility] and was ultimately diagnosed with necrotizing fasciitis. She was admitted over the course of the last month and had surgical debridements and was stabilized on IV antibiotics and transferred to [facility]. She ultimately had a Iqbal catheter placed and this catheter has been indwelling since that time. She has not had a catheter removed and replaced in 4 weeks. She states that last night the catheter started leaking. She was still able to pass urine and was not having any any discomfort that would be consistent with urinary retention. She has had some pain with urination and has talked to her primary care provider about this and they have considered bladder spasm as a possibility. No fevers or chills Related Data Home Medications ?Medication ?Instructions ?Recorded ?Confirmed folic acid 1 mg tablet 1 mg PO DAILY 07/07/23 07/08/25 cholecalciferol (vitamin D3) 125 125 mcg PO DAILY 08/09/23 07/08/25 mcg (5,000 unit) tablet naproxen 500 mg tablet 500 mg PO BID 08/09/23 07/08/25 mirabegron 25 mg tablet,extended 25 mg PO DAILY 02/08/24 07/08/25 release 24 hr (Myrbetriq) buspirone 15 mg tablet 15 mg PO TIDP PRN Anxiety 09/05/24 07/08/25 duloxetine 60 mg capsule,delayed 60 mg PO DAILY 09/05/24 07/08/25 release linaclotide 72 mcg capsule 72 mcg PO DAILY 09/05/24 07/08/25 (Linzess) metformin 500 mg tablet 500 mg PO DAILY 09/05/24 07/08/25 rosuvastatin 20 mg tablet 20 mg PO HS 09/05/24 07/08/25 valsartan 320 1 tab PO DAILY 09/05/24 07/08/25 mg-hydrochlorothiazide 12.5 mg tablet semaglutide 0.25 mg or 0.5 mg (2 0.25 mg SQ WEEKLY 03/27/25 07/08/25 mg/3 mL) subcutaneous pen injector (Ozempic) loratadine 10 mg tablet 10 mg PO DAILY 04/25/25 07/08/25 lamotrigine 100 mg tablet,extended 100 mg PO DAILY 06/25/25 07/08/25 release 24 hr Previous Rx's ?Medication ?Instructions ?Recorded blood sugar diagnostic (Blood #50 ea 04/28/22 Glucose Test strips) albuterol sulfate 90 mcg/actuation 2 inh inhalation Q6H PRN shortness 06/15/22 aerosol inhaler of breath or wheezing 90 days #8.5 grams ipratropium 0.5 mg-albuterol 3 mg 3 ml inhalation Q6H PRN shortness 11/28/23 (2.5 mg base)/3 mL nebulization of breath or wheezing #180 mL soln budesonide-formoterol HFA 160 2 puff inhalation BID 90 days 05/02/25 mcg-4.5 mcg/actuation aerosol #10.2 grams inhaler (Symbicort) fluticasone propionate 50 2 spray intranasal DAILY PRN 05/02/25 mcg/actuation nasal allergy symptoms 90 days #16 grams spray,suspension (Flonase Allergy Relief) montelukast 10 mg tablet 10 mg PO QPM 90 days #90 tabs 05/02/25 metoprolol succinate 100 mg 100 mg PO DAILY #30 tabs 06/25/25 tablet,extended release 24 hr (Toprol XL) levofloxacin 750 mg tablet 750 mg PO DAILY 5 days #5 tabs 08/11/25 Allergies Allergy/AdvReac Type Severity Reaction Status Date / Time bupropion (From Wellbutrin) Allergy Severe Anaphylaxis Verified 06/25/25 11:37 aspirin (ASPIRIN) Allergy Mild Unknown Verified 06/25/25 11:37 allergy reaction doxycycline (DOXYCYCLINE) Allergy Mild Unknown Verified 06/25/25 11:37 allergy reaction diazepam (From Valium) Allergy Unknown Verified 06/25/25 11:37 allergy reaction Penicillins Allergy Unknown Verified 06/25/25 11:37 allergy reaction alprazolam (From Xanax) AdvReac Severe Agitated Verified 06/25/25 11:37 [facility] Disclaimer: The information contained in this section may have been updated after the patient was seen, as this information can be updated by other users. Medical History Respiratory failure with hypoxia Frequent PVCs Shortness of breath Snoring History of absence seizures Altered awareness, transient Hidradenitis Complex multifocal hidradenitis. Recent left medial thigh abscessed hidradenitis status post spontaneous drainage. Left lateral mid abdominal wall wound also noted (possible same etiology). Wound dehiscence Pharyngitis Abnormal electrocardiogram [ECG] [EKG] BMI 50.0-59.9, adult Bronchitis Diabetes mellitus Hyperlipidemia Allergic rhinitis Family history of emphysema Asthma Family history of asthma Tobacco abuse counseling Tobacco abuse disorder Dyspnea on exertion Smoking greater than 30 pack years Seasonal allergic rhinitis Moderate persistent asthma Morbid obesity HTN (hypertension), benign Hidradenitis suppurativa Surgical History History of carpal tunnel surgery Hx of cholecystectomy History of tonsillectomy History of hysterectomy Family History Other Cancer Coronary artery disease FHx: mental illness Heart attack Hyperlipidemia Hypertension No significant family history Stroke Social History Smoking Status: Current every day smoker tobacco type: cigarettes packs per day: 1 second hand exposure: Yes alcohol intake: never substance use type: marijuana current occupational status: unemployed Travel in the last 8 weeks?: None housing: house Have you lived/traveled outside [place] in past 30 days?: No Contact w/someone who lives/traveled outside [place] past 30 days?: No Exposure to someone with infectious disease in past 14 days?: No Do you have a fever (greater than 100.4 F or 38 C)?: No Have you tested positive for COVID-19?: No Exposed to someone with COVID-19 in past 14 days?: No Do you have a sore throat?: No Do you have a cough?: No Do you have any weakness?: No Do you have any diarrhea?: No Are you experiencing any unusual bleeding?: No Do you have any muscle aches/pain?: No Do you have any abdominal pain?: No Are you experiencing loss of taste or smell?: No Other Medical History Have you received the Flu Vaccine for this season: No Have you received the Pneumonia Vaccine: No ROS Obtained: Yes Systems reviewed as appropriate & no additional complaints except as documented Physical Exam General General appearance: other (See MDM) Respiratory Respiratory exam: Present other (See MDM) Cardiovascular Cardiovascular exam: Present other (See MDM) Neurological Exam Neurological exam: Present other (See MDM) Medical Decision Making Medical Records Medical records reviewed: Yes I reviewed the patient's medical records. Screening: Per USPSTF and CDC recommendations, given the prevalence of disease in our region, it is our hospital?s policy to screen for HIV and viral Hepatitis for all patients aged 18 and over and those with ongoing risk factors. Cristian Inquiry Pt receiving controlled substance: No Cristian was queried for this patient: No Vital Signs: 08/11/25 10:49 08/11/25 10:51 08/11/25 10:51 Temperature 98.3 F 98.3 F Temperature Source Oral Pulse Rate 102 H 104 H Pulse Rate [Right] 104 H Respiratory Rate 20 20 Blood Pressure 126/77 126/77 Blood Pressure [Right Arm] 126/77 Blood Pressure Mean Blood Pressure Mean [Right Arm] 93 02 Sat by Pulse Oximetry 98 98 98 Oxygen Delivery Method Room Air 08/11/25 11:00 08/11/25 11:30 08/11/25 12:00 Temperature Temperature Source Pulse Rate 83 89 89 Pulse Rate [Right] Respiratory Rate Blood Pressure 139/96 H 130/72 123/74 Blood Pressure [Right Arm] Blood Pressure Mean Blood Pressure Mean [Right Arm] 02 Sat by Pulse Oximetry 96 99 99 Oxygen Delivery Method Room Air Room Air Room Air 08/11/25 12:30 08/11/25 13:00 08/11/25 13:30 Temperature Temperature Source Pulse Rate 84 86 87 Pulse Rate [Right] Respiratory Rate Blood Pressure 112/75 132/75 135/74 Blood Pressure [Right Arm] Blood Pressure Mean 88 84 Blood Pressure Mean [Right Arm] 02 Sat by Pulse Oximetry 95 95 97 Oxygen Delivery Method Room Air Room Air Room Air 08/11/25 14:00 Temperature Temperature Source Pulse Rate 85 Pulse Rate [Right] Respiratory Rate Blood Pressure 143/73 H Blood Pressure [Right Arm] Blood Pressure Mean 85 Blood Pressure Mean [Right Arm] 02 Sat by Pulse Oximetry 96 Oxygen Delivery Method Room Air Lab Data Lab Results 08/11/25 12:06: Urine Color Yellow, Urine Appearance Clear, Urine pH 6.0, Ur Specific [place] 1.020, Urine Protein 2+ A, Urine Glucose (UA) Negative, Urine Ketones Negative, Urine Blood 2+ A, Urine Nitrate Negative, Urine Bilirubin Negative, Urine Urobilinogen 0.2, Ur Leukocyte Esterase 2+ A, Urine RBC 3-5, Urine WBC 5-10, Ur Squamous Epith Cells 5-10, Urine Bacteria Trace Orders (Tests/Meds): ORDERS Category Date Time Status Urinalysis and Microscopic Stat Lab 08/11/25 12:06 Completed Urine Culture Stat Micro 08/11/25 12:06 Received Medical Decision Narrative: In summary, this is a 50-year-old female patient who is presenting to the emergency department today for evaluation of leaking from around her Iqbal catheter. She has had this catheter in for the last 4 weeks without changing or replacement. This was secondary to a recent diagnosis of necrotizing fasciitis for which she has undergone debridement and currently has a wound VAC in place. Comorbidities include hypertension, hyperlipidemia, diabetes, and morbid obesity On initial evaluation of the patient they were resting comfortably in no acute distress and nontoxic in appearance. They are hemodynamically stable, saturating well room air, and are neurologically intact. On physical examination the patient's wound VAC is in place. I am able to examine the borders of her wound through the clear borders of the wound VAC and the wound appears to be relatively well-healing. She has not had any fevers, streaking redness, or purulence from around the wound VAC. She does have a Iqbal catheter in place with leakage from around the Iqbal catheter. Differential diagnosis includes Iqbal catheter obstruction, urinary tract infection, Iqbal catheter dislodgment, among others We have pulled the Iqbal catheter and replaced it with a new 1. We have also collected a urine sample. Urine sample was obtained from the new Iqbal catheter. Urinalysis shows 5-10 white blood cells, bacteria, and 2+ leukocyte esterase with 2+ blood. I do feel this is consistent with urinary tract infection especially with the suprapubic discomfort she feels with urination. We will place the patient on a course of Levaquin 750 mg daily for complicated urinary tract infection. Return precautions have been given. At this time all questions have been answered and all parties are agreeable with the decision to discharge home Critical Care Critical Care Time Critical Care Time: No
[2025-08-11 12:13] LABS: Microscopic, Urine URINE MICROSCOPIC (MICROSCOPIC)
[2025-08-11 12:32] LABS: Bilirubin,Urine Negative (Negative); Color,Urine YELLOW (Yellow); Glucose,Urine (UA) Negative (Negative); Ketones,Urine Negative (Negative); Leukocyte Esterase,Urine 2+ (Negative); PH,Urine 6.0 (5.0-8.5); Protein,Urine 2+ (Negative); Specific Gravity, Urine 1.020 (1.005-1.030); Urobilinogen,Urine 0.2 EU/dl (0.2)
[2025-08-11 13:57] LABS: Bacteria,Urine Trace /lpf
--- NOTE | 2025-08-14 02:58 | PC.NURSE ---
Urine CX final indicates contamination. Pt complained of UTI symptoms dx w UTI and d/c w Levaquin. Sanjay per Dr. Mcmillan
== END 2025-08-11 14:34 | disposition home or self-care (01) ==
PROVIDERS: Emergency Provider Student in an Organized Health Care Education/Training Program; PCP Nurse Practitioner Family
DX: T83.511A Infection and inflammatory reaction due to indwelling urethral catheter, initial encounter (principal); N39.0 Urinary tract infection, site not specified; T83.091A Other mechanical complication of indwelling urethral catheter, initial encounter; F17.210 Nicotine dependence, cigarettes, uncomplicated; E66.01 Morbid (severe) obesity due to excess calories; E11.9 Type 2 diabetes mellitus without complications; I10 Essential (primary) hypertension; E78.5 Hyperlipidemia, unspecified
CPT/HCPCS: 81001; 87086; 99283; 99285

== ENCOUNTER 2025-08-20 20:50 | Emergency (ER) | payer OTHER, SELFPAY ==
--- OUTSIDE RECORDS SUMMARY | 2024-06-01 10:00 | XMS_ITS | Encounter Summary ---
Author Organization [employer] ([place], [place], [place], [place]) Address [address] [place] [address] Care Team Providers Care Waste Transportation Technician Name Role Phone Dhillon, Yenny GLORIA Primary Care Provider [phone] Encounter Details Date Type Department Care Team (Late st Contact Info) Description 06/01/2024 10:00 AM EDT Hospital Encounter Sue Jolly MD [address] [place] [address] [address] [place] [address] Social History Tobacco Use Types Packs/Day Years Used Date Smoking Tobacco: Every Day Cigarettes Smokeless Tobacco: Never Alcohol Use Standard Drinks/Week Comments Yes 0 (1 standard drink = 0.6 oz pur e alcohol) Family and Community Support Answer Rmoel e Recorded Help with Day to Day Activities Not on file 12/23/2023 Feeling Lonely or Isolated Not on file 12/23 Educational Attainment Answer Date Franko rded Speak language other than Zimbabwean at home Not on file 12/23/2023 Want help with school or training Not on file 12/23/2023 Substance Use Answer Date Recorded Used prescription meds for non-medical reasons N ot on file 12/23/2023 Used illegal drugs past 12 months Not on file 12/23/2023 Comments Unknown Sex and Gender Information Value Date Recorded Sex Assigned at Not on file 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 Gender Identity Not on file Sexual Orientation Not on file documented as of this encounter Plan of Treatment Upcoming Encounters Date Type Department Care Team (Late st Contact Info) Description 08/21/2025 3:30 PM EDT Clinical Support [facility] [address] [place] [address] 08/23/2025 3:30 PM EDT Clinical Support [facility] [address] [place] [address] documented as of this encounter Visit Diagnoses Not on filedocumented in this encounter Care Teams Waste Transportation Technician Relationship Specialty Start Date End Date Yenny Dhillon, GLORIA [address] [place] [address] PCP - General Nurse Practitioner 03/13/24 documented as of this encounter
--- OUTSIDE RECORDS SUMMARY | 2025-07-08 17:58 | XMS_ITS | Encounter Summary ---
Author Organization [facility] Address [address] [place] [address] Care Team Providers Care Air Marshal Name Role Phone Yenny Dhillon APRN Primary Care Provider [phone] Reason for Referral * Consultation (Routine) - Authorized Specialty Diagnoses / Procedures Referred By Bharati wiggins Referred To Contact Endocrinology Diagnoses Morbid (severe) obesity due to excess calories (CMS/HCC) Type 2 diabetes mellitus with hyperglycemia, without long-term current use of insulin Celiac disease Sherrill Villa APRN [address] [place] [address] Phone: tel: fax: Referral ID Status Reason Start Date Expiration Date Visits Requested Visits Authorized [id number] Authorized Specialty Services Required 07/15/2025 01/14/2027 [address] Oliva is accepting new patients. Her office is located at the [facility] Endocrinology Clinic in the [facility] Physician Building, [address], [address] For an appointment, please call . Reason for Visit * Reason Comments Wound Check * Auth/Cert (Routine) Specialty Diagnoses / Procedures Referred By Bharati wiggins Referred To Contact Diagnoses Necrotizing fasciitis (CMS/HCC) Necrotizing Fascitis Luanne Crawford MD [address] [address] Phone: tel: fax: [facility] [address] [place] [address] Phone: tel: Referral ID Status Reason Start Date Expiration Date Visits Re quested Visits Authorized [id number] 1 1 Encounter Details Date Type Department Care Team (Late st Contact Info) Description 07/08/2025 5:58 PM EDT - 07/19/2025 12:56 PM EDT Hospital Encounter [facility] [address] [place] [id number] My Charles MD [address] [place] [address] Luanne Crawford MD [address] [place] [id number] Dorcas Hennessy MD [address] [address] Anne Franco MD [address] [place] [phone] Necrotizing fasciitis (CMS/HCC) (Primary Dx); 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); Morbid (severe) obesity due to excess calories (CMS/HCC); Septic shock (CMS/HCC); Acute respiratory failure with hypoxia; Type 2 diabetes mellitus with hyperglycemia, without long-term current use of insulin (CMS/HCC); Celiac disease; Respiratory insufficiency Discharge Disposition: Rehab Facility Social History Tobacco Use Types Packs/Day Years [...] Recorded Patient Health Questionnaire-9 Score 16 08/31/2023 Humiliation, Afraid, Rape, and Kick questionnair e Answer Date Recorded Within the last year, have y ou been afraid of your partner or ex-partner? No 07/15/2025 Within the last year, have y ou been humiliated or emotionally abused in other ways by your partner or ex-partner? No Within the last year, have y ou been kicked, hit, slapped, or otherwise physically hurt by your partner or ex-partner? No 07/15/2025 Within the last year, have y ou been raped or forced to have any kind of sexual activity by your partner or ex-partner? No 07/15/2025 Hunger Vital Sign Answer Date Recorded Within the past 12 months, y ou worried that your food would run out before you got the money to buy more. Never true 07/15/20 25 Within the past 12 months, t he food you bought just didn't last and you didn't have money to get more. Never true 07/15/2025 PRAPARE - Transportation Answer Date Re corded In the past 12 months, has l ack of transportation kept you from medical appointments or from getting medications? No 06/2025 In the past 12 months, has l ack of transportation kept you from meetings, work, or from getting things needed for daily living? No 07/15/2025 Housing Stability Vital Sign Answer Romel e Recorded In the last 12 months, was t here a time when you were not able to pay the mortgage or rent on time? No 07/15/2025 Number of Times Moved in the Last Year Not on fi le 07/15/2025 At any time in the past 12 m [facility], were you homeless or living in a usp (including now)? No 07/15/2025 [facility] Utilities Answer Date Recorded In the past 12 months has th e electric, gas, oil, or water company threatened to shut off services in your home? No 07/15/2025 PHQ-2A Answer Date Recorded Patient Health Questionnaire-2 Score 4 08/31/2023 Comments Unknown Sex and Gender Information Value Date Recorded Sex Assigned at Female 08/26/2023 5:39 PM EDT Legal Sex Female 7:01 PM EDT Gender Identity Female 08/26/2023 5:39 PM EDT Sexual Orientation Straight 08/26/2023 5: 39 PM EDT documented as of this encounter Last Filed Vital Signs Vital Sign Reading Time Taken Comments Blood Pressure 105/69 07/19/2025 11:26 AM EDT Pulse 113 07/19/2025 11:26 AM EDT Temperature 36.8 C (98.2 F) 07/19/2025 11:26 AM EDT Respiratory Rate 18 07/19/2025 11:26 AM EDT Oxygen Saturation 92% 07/19/2025 11:26 AM EDT Inhaled Oxygen Concentration - - Weight 162 kg (356 lb 1.6 oz) 07/18/2025 6:00 AM EDT Height 177.8 cm (5' 10 ) 07/09/2025 7:20 PM EDT Body Mass Index 51.1 07/09/2025 7:20 PM EDT documented in this encounter Functional Status * Calculated C-SSRS Risk Score (Lifetime/Recent) Answer Date of Assessment Author No Risk Indicated 07/19/2025 8:00 AM EDT Narcisa Santos * Question Answer Date of Assessment Author 1. Wish to be (Past 1 Month) No 025 8:00 AM EDT Junior Sabrina Santos 2. Non-Specific Active Suici silvia Thoughts (Past 1 Month) No 07/19/2025 8:00 AM EDT Junior Sabrina Santos 6. Suicidal Behavior (Lifetime) No 8:00 AM EDT Junior Sabrina Santos documented as of this encounter Discharge Instructions * Discharge Instructions* Becky Graff, GLORIA - 07/18/2025 10:08 AM EDT Discharge Instructions: Medications: - You should take Tylenol every 6 hours for mild - moderate pain. - You should take methocarbamol 3 times per day for muscle spasms. - You have been prescribed pain medications to be taken as needed for severe pain. Do NOT take any home narcotics while taking pain medicine we have prescribed. - You should take the stool softener prescribed as long as you are taking narcotics. - You may resume your previous medications unless otherwise instructed. Nutrition: - You should low carbohydrate, diabetic-friendly diet. It is important to keep your blood sugar well controlled. High blood sugars can delay wound healing. Activity: - Activity as tolerated. Dressing: Currently has WTD dressing in place, sutures removed on rounds. [facility] can re- apply negative pressurewound therapy: Wound vac changes w/ black foam on Tuesday, Tuesday, Tuesday schedule. Give oral pain regimen 30 minutes prior to dressing changes. Potential Issues: - Call the office if you have a fever greater than 101 F - Call the office if you have severe abdominal discomfort, nausea and vomiting, or feeling unwell Follow Up: - [facility] with Lilliana Morfin APRN in 2 weeks for wound evaluation. - Referral to Endocrinology (Ordered) - PCP within one week after discharge for post hospitalization visit and chronic disease management. Questions or Concerns and Appointments For appointments please call our General Surgery Clinic at [phone]. If there are questions or concerns after discharge from the hospital, call Radha Ugalde, Nurse Coordinator between 7am-3pm at [phone]. If it is after hours, weekends, and holidays please call [phone] and ask for the resident fashion director party plan sales for Emergency General Surgery. Medication requests should be made between the hours of 9:00 AM to 3:00 PM Tuesday thru Tuesday. Please note that based upon recent changes to [place] law related to prescribing opioid pain medications, our providers will not provide refills on controlled medications after your hospital discharge following a major surgery or trauma. [place] 201 KAR9:260. documented in this encounter Medications at Time of Discharge acetaminophen (Tylenol) 500 MG tablet Take 2 tablets by mouth every 6 hours. 07/19/2025 budesonide-formot dustin (Symbicort) 160-4.5 MCG/ACT inhaler Inhale 2 puffs 2 times a day. 02/08/2022 busPIRone (Buspar) 15 MG tablet Take 1 tablet by mouth 3 times a day. cholecalciferol (Vitamin D-3) 5,000 Units tablet Take 1 tablet by mouth daily. 01/17/2023 DULoxetine (Cymbalta) [address] capsule Take 1 capsule by mouth daily. Do not crush or chew. fluticasone (Flonase) 50 MCG/ACT nasal spray Administer 1 spray into each nostril 2 times a day. 11/16/2021 folic acid (Folvite) 1 MG tablet Take 1 tablet by mouth 1 time each day. 02/14/2023 insulin glargine-yfgn 100 UNIT/ML injection vial Inject 10 Units under the skin nightly. 07/19/2025 insulin lispro (Admelog) 100 UNIT/ML injection Inject 0-5 Units under the skin 3 times a day with meals. See After Visit Summary for instructions on how to take your insulin. 07/19/2025 insulin lispro (Admelog) 100 UNIT/ML injection Inject 0-3 Units under the skin 2 times a night. See After Visit Summary for instructions on how to take your insulin. 07/19/2025 lamoTRIgine (LaMICtal XR) 100 mg tablet sustained-release 24 hour 24 hr tablet Take 1 tablet by mouth daily. Linzess 72 MCG capsule capsule Take 1 capsule by mouth daily before breakfast. 02/28/2024 loratadine (Claritin) 10 MG tablet Take 1 tablet by mouth daily. methocarbamol (Robaxin) 750 MG tablet Take 1 tablet by mouth 3 times a day. 07/19/2025 metoprolol succinate XL (Toprol-XL) 100 MG 24 hr tablet Take 1 tablet by mouth daily. Do not crush or chew. montelukast (Singulair) 10 MG tablet Take 1 tablet by mouth daily. 08/03/2023 naloxone (Narcan) 4 mg/0.1 mL nasal spray 1. Give 1 spray in nostril for no/slow breathing or cannot wake after opioid use 2. Call 911 3. Repeat in other nostril if symptoms continue 1 each 07/19/2025 naproxen (Naprosyn) 500 MG tablet Take 1 tablet by mouth 2 times a day with meals. 07/26/2023 Nutritional Supplements (Jose) pack Take 1 Package by mouth 2 times a day with meals. 07/19/2025 oxyCODONE (Roxicodone) 10 MG immediate release tablet Take 1 tablet by mouth every 6 hours as needed for severe pain. 07/19/2025 oxyCODONE (Roxicodone) 5 MG immediate release tablet Take 1 tablet by mouth Q MWF. 07/19/2025 polycarbophil (EQ Fiber Therapy) 625 MG tablet Take 1 tablet by mouth daily. 05/12/2020 polyethylene glycol (Miralax) 17 g packet Take 17 g by mouth daily. 07/20/2025 rosuvastatin (Crestor) 20 MG tablet Take 1 tablet by mouth daily. 07/23/2023 senna-docusate (Leann-Colace) 8.6-50 MG tablet Take 1 tablet by mouth 2 times a day. 07/19/2025 valsartan-hydroCH LOROthiazide (Diovan-HCT) 320-12.5 MG tablet Take 1 tablet by mouth 1 time each day. 12/13/2022 Vitamin E 180 MG (400 UNIT) capsule Take 1 tablet by mouth daily. 06/20/2023 mirabegron ER (Myrbetriq) 25 MG tabletIndications :Urge incontinence Take 1 tablet by mouth daily. 30 tablet 3 03/22/2025 documented as of this encounter Miscellaneous Notes * Care Plan - Junior Sabrina Santos - 07/19/2025 12:34 PM EDT Problem: Adult Inpatient Plan of Care Goal: Plan of Care Review Outcome: Met Flowsheets Taken 07/18/2025 2320 by Inessa Almazan RN Progress: improving Taken 07/18/2025 1633 by Josi Ann RN Plan of Care Reviewed With: patient Goal: Patient-Specific Goal (Individualized) Outcome: Met Flowsheets (Taken 07/19/2025 0800) Patient/Family-Specific Goals (Include Timeframe): pt will remain free from falls or injury this shift Individualized Care Needs: safety Anxieties, Fears or Concerns: going to rehab Goal: Absence of Hospital-Acquired Illness or Injury Outcome: Met Intervention: Identify and Manage Fall Risk Flowsheets (Taken 07/19/2025 0800) Safety Promotion/Fall Prevention: activity supervised assistive device/personal items within reach clutter-free environment maintained fall prevention program maintained lighting adjusted mobility aid in reach nonskid shoes/slippers when out of bed room organization consistent safety round/check completed toileting scheduled Intervention: Prevent Skin Injury Flowsheets Taken 07/19/2025799 by Junior Sabrina Santos Body Position: weight shifting Taken 07/18/20252319 by Inessa Almazan RN Skin Protection: incontinence pads utilized protective footwear used transparent dressing maintained Intervention: Prevent and Manage VTE (Venous Thromboembolism) Risk Flowsheets (Taken 07/19/2025799) VTE Prevention/Management: bilateral SCDs (sequential compression devices) off medication Intervention: Prevent Infection Flowsheets (Taken 07/18/2025 1600 by Josi Ann RN) Infection Prevention: hand hygiene promoted rest/sleep promoted Goal: Optimal Comfort and Wellbeing Outcome: Met Intervention: Monitor Pain and Promote Comfort Flowsheets (Taken 07/19/2025222 by Inessa Almazan, RN) Pain Management Interventions: medication (see MAR) Intervention: Provide Person-Centered Care Flowsheets (Taken 07/18/20252319 by Inessa Almazan, RN) Trust Relationship/Rapport: care explained choices provided emotional support provided empathic listening provided questions answered questions encouraged reassurance provided thoughts/feelings acknowledged Goal: Readiness for Transition of Care Outcome: Met Problem: Skin Injury Risk Increased Goal: Skin Health and Integrity Outcome: Met Intervention: Optimize Skin Protection Flowsheets Taken 07/19/2025799 by Junior Sabrina Santos Activity Management: activity adjusted per tolerance activity encouraged Head of Bed (HOB) Positioning: HOB elevated Taken 07/18/20252319 by Inessa Almazan, RN Pressure Reduction Techniques: pressure points protected Pressure Reduction Devices: positioning supports utilized Skin Protection: incontinence pads utilized protective footwear used transparent dressing maintained Intervention: Promote and Optimize Oral Intake Flowsheets (Taken 07/18/20252319 by Inessa Almazan, RN) Oral Nutrition Promotion: calorie-dense foods provided rest periods promoted Nutrition Interventions: frequent small meals provided supplemental drinks provided Problem: Infection Goal: Absence of Infection Signs and Symptoms Outcome: Met Intervention: Prevent or Manage Infection Flowsheets Taken 07/19/2025799 by Junior Sabrina Santos Isolation Precautions: protective precautions maintained Taken 07/18/20252319 by Inessa Almazan, RN Infection Management: aseptic technique maintained Fever Reduction/Comfort Measures: lightweight bedding lightweight clothing Problem: Fall Injury Risk Goal: Absence of Fall and Fall-Related Injury Outcome: Met Intervention: Identify and Manage Contributors Flowsheets (Taken 07/18/20252319 by Inessa Almazan, RN) Medication Review/Management: medications reviewed Self-Care Promotion: independence encouraged Intervention: Promote Injury-Free Environment Flowsheets (Taken 07/19/2025 08) Safety Promotion/Fall Prevention: activity supervised assistive device/personal items within reach clutter-free environment maintained fall prevention program maintained lighting adjusted mobility aid in reach nonskid shoes/slippers when out of bed room organization consistent safety round/check completed toileting scheduled Problem: Self-Care Deficit Goal: Improved Ability to Complete Activities of Daily Living Outcome: Met Intervention: Promote Activity and Functional Tonica Flowsheets Taken 07/18/20252319 by Inessa Almazan, RN Self-Care Promotion: independence encouraged Taken 07/18/20251999 by Inessa Almazan, RN Activity Assistance Provided: assistance, stand-by Taken 07/14/20252310 by Rita Alejandro RN Adaptive Equipment Use: long-handled shoe horn Problem: Wound Goal: Optimal Coping Outcome: Met Intervention: Support Patient and Family Response Flowsheets (Taken 07/18/20251599 by Josi Ann, NAHID) Supportive Measures: active listening utilized self-care encouraged positive reinforcement provided Family/Support System Care: support provided Goal: Optimal Functional Ability Outcome: Met Intervention: Optimize Functional Ability Flowsheets Taken 07/19/2025 08 by Junior Sabrina Santos Activity Management: activity adjusted per tolerance activity encouraged Taken 07/18/20251999 by Inessa Almazan, RN Activity Assistance Provided: assistance, stand-by Assistive Device Utilized: front wheel walker Goal: Absence of Infection Signs and Symptoms Outcome: Met Intervention: Prevent or Manage Infection Flowsheets Taken 07/19/2025 08 by Junior Sabrina Santos Isolation Precautions: protective precautions maintained Taken 07/18/20252319 by Inessa Almazan, NAHID Infection Management: aseptic technique maintained Fever Reduction/Comfort Measures: lightweight bedding lightweight clothing Goal: Improved Oral Intake Outcome: Met Intervention: Promote and Optimize Oral Intake Flowsheets Taken 07/18/20252319 by Inessa Almazan, RN Oral Nutrition Promotion: calorie-dense foods provided rest periods promoted Nutrition Interventions: frequent small meals provided supplemental drinks provided Taken 07/18/20251599 by Josi Ann RN Nutrition Support Management: weight trending reviewed Goal: Optimal Pain Control and Function Outcome: Met Intervention: Prevent or Manage Pain Flowsheets Taken 07/19/2025 0223 by Inessa Almazan RN Pain Management Interventions: medication (see MAR) Taken 07/18/2025 1600 by Josi Ann RN Sleep/Rest Enhancement: awakenings minimized consistent schedule promoted Goal: Skin Health and Integrity Outcome: Met Intervention: Optimize Skin Protection Flowsheets Taken 07/19/2025 0800 by Junior Sabrina Santos Activity Management: activity adjusted per tolerance activity encouraged Head of Bed (HOB) Positioning: HOB elevated Taken 07/18/2025 2320 by Inessa Almazan RN Pressure Reduction Techniques: pressure points protected Pressure Reduction Devices: positioning supports utilized Taken 07/14/2025 1800 by Josi Ann RN Skin Protection: frequent weight shift encouraged weight shift assistance provided incontinence pads utilized Goal: Optimal Wound Healing Outcome: Met Intervention: Promote Wound Healing Flowsheets (Taken 07/18/2025 1600 by Josi Ann RN) Sleep/Rest Enhancement: awakenings minimized consistent schedule promoted * Progress Notes - Annie Littlejohn - 07/19/2025 9:59 AM EDT Case Management Discharge Note Cristina Escobar Kevin 50 y.o. female CSN: [id number] Admission: 07/08/2025 5:58 PM Primary Problem: Necrotizing fasciitis (CMS/HCC) Primary Voice Coach: Primary Caregiver: Self Assistance Available at Discharge: Current Outpatient/Agency/Support Group: clinic(s) Availability of Care Givers (#Hours): 1-4 hours Housing Circumstances-Z Codes: Housing Circumstances (select all that apply): Low Income (101-300% Federal Poverty Guidlines) - Z596 Patient Referred to Financial or Community Resources: Discharge Facility/Level of Care Needs: Discharge Facility/Level of Care Needs: 62-Rehab facilty Patient's Choice of Community Agency(s): Patient's Choice of Community Agency(s): [facility] Patient/Family Anticipated Services at Transition: Patient/Family Anticipated Services at Transition: rehabilitation services DME/Equipment Needed after Discharge: Equipment Currently Used at Home: none Equipment Needed After Discharge: walker, rollator Readmission Within the Last 30 Days: Readmission Within the Last 30 Days: unable to assess Medicare Documentation: N/A Follow-up: Keaton Patel MD [address] [place] [address] [place] [address] [facility] [address] [facility] [address] Go on 07/19/2025 Discharge Transportation: Transportation Anticipated: medical transport Transportation Home at Discharge: Medical Transport Has discharge transport been arranged?: Yes What day is the transport expected?: 07/19/25 What time is the transport expected?: 1400 Follow Up Transport: Transportation Needed to Follow up Appoinments: Family/Friend will Provide, Medical Transport, Public Transportation Additional Comments: Pt voiced many frustrations about not being heard as a patient while her, SW listened to pt & attempted to address concerns/needs. The pt was provided with the # to Patient Experience so that herconcerns could be documented & addressed. Pt stated that she had no other needs at the present time. DENISA Nelson arranged for this date at [address] [facility]. Annie Littlejohn * Raj Peres RN - 07/19/2025 9:44 AM EDT Images from the original note were not included. 1087 Oxycodone Oral Tablet, Immediate Release Brand Names: Oxaydo, Roxicodone What is this medicine? Oxycodone (gh-n-VCI-done) is an opioid pain reliever. It is used to treat moderate to severe pain. What should I tell my health care provider before I take this medicine? They need to know if you have any of these conditions: ? Finn's disease ? Brain tumor or head injury ? Personal or family history of drug abuse or addiction ? Heart disease ? Frequent alcohol use ? Kidney disease ? Liver disease ? Lung disease, asthma, or breathing problems ? Depression, anxiety, or other psychiatric disease ? Allergy or unusual reaction to oxycodone, acetaminophen or other pain relievers ? , trying to get , or How should I use this medicine? Take this medicine as prescribed by your doctor, and follow the directions on the prescription label. ? Take this medicine as prescribed by your doctor. Follow the directions on the prescription label. ? Do not take this medicine more often than directed. ? This medicine should be taken with a full glass of water. ? If it upsets your stomach, you may take it with food. You do not have to take this medicine with food. ? Do not crush, cut, chew, lick, wet, soak, or otherwise manipulate a tablet before taking. ? Do not share this medicine with others. This medicine is only for you. ? The pharmacy will give you a special medication guide each time you turkey picker this medicine. ? Overdosage: Taking too much of this medicine can be deadly. Your doctor may prescribe another medicine with this medicine to treat an accidental overdose. If you think you have taken too much of this medicine, call 911 immediately. What if I miss a dose? If you miss a dose, you may take it as soon as you remember. If it is almost time for your next dose, take only that dose. Do not take double or extra doses. What may interact with this medicine? ? Alcohol ? Medicines for sleep, depression, anxiety, or psychiatric diseases ? Seizure medicines like gabapentin, pregabalin, phenytoin, or phenobarbital ? Other pain medicines like tramadol, hydrocodone, fentanyl, or morphine ? Muscle relaxers ? Certain nausea medicines like chlorpromazine or promethazine ? Cannabinoids like droperidol ? Certain antibiotics like erythromycin, clarithromycin, rifampin, ritonavir, voriconazole, or ketoconazole ? Allergy medicines like diphenhydramine This list may not describe all possible interactions. Give your health care provider a list of all the medicines, herbs, non-prescription drugs, or dietary supplements you use. Also tell them if you smoke, drink alcohol, or use illegal drugs. Some items may interact with your medicine. What should I watch for while using this medicine? ? Before you start taking this medicine, talk with your doctor about how long you should be on thismedicine. You should also talk to your doctor about other things you can do to treat pain, including other medicines or non-drug treatments like meditation or acupuncture. While taking this medicine,tell your doctor if your pain does not go away or gets worse or if you have a new or different typeof pain. ? It is possible you could become dependent on this medicine. The risk of dependence increases the longer you are on the medicine. Dependence is not addiction; however, if you have a personal or family history of addiction, you are at higher risk for becoming addicted to this medicine. Talk to yourdoctor if you are worried about dependence or addiction. ? If you take this medicine for a long time and suddenly stop taking this medicine, you may withdraw from this medicine. Withdrawal from this medicine may cause sweating, pain, diarrhea, anxiety, tremor, and other symptoms. Stopping the medicine slowly can reduce withdrawal symptoms. ? This medicine may cause dizziness or drowsiness, especially when you change doses or first start the medicine. Do not drive, use machinery, or do anything dangerous until you know how your body reacts to this medicine. ? This medicine causes constipation. Unless your doctor tells you not to, you should take a stool softener while on this medicine. Tell your doctor if you have not had a bowel movement in 3 or more days while on this medicine. ? This medicine can also cause dry mouth. Drinking water, chewing gum, or sucking on hard candy canhelp. It is important to keep regular dentist appointments. What side effects may I notice from receiving this medicine? Side effects that you should report to your doctor or health field care manager as soon as possible: ? allergic reactions like skin rash, itching or hives, swelling of the face, lips, or tongue ? breathing problems ? confusion ? craving for the medicine or withdrawal symptoms with a missed dose ? feeling faint or lightheaded, falls ? trouble passing urine or change in the amount of urine ? unusually weak or tired Side effects that usually do not require medical attention (report to your doctor or health field care manager if they continue or are bothersome): ? constipation ? dry mouth ? itching ? nausea, vomiting ? upset stomach This list may not describe all possible side effects. Call your doctor for medical advice about side effects. You may report side effects to FDA at 4-535-MSF-3675. Where should I keep my medicine? This medicine should be kept in a locked cabinet away from children and protected from theft. This medicine can be abused. Do not share this medicine with anyone. Selling or giving away this medicineis against the law. Store at room temperature (60-80??F) in a dry place that is protected from light. Do not save unused medicine that is no longer needed. Unused medicine should be taken to a proper disposal location. To find a disposal location, visit [employer]/[facility]/[place]. If you cannot take unused medicine to a proper location, you can mix the medicine with coffee grounds or jose litter and dispose of in the normal trash. Your doctor may also give you a special disposal pouch for this medicine. You can also flush the medicine down the toilet. * [facility] - Raj Cardona RN - 07/19/2025 9:44 AM EDT Images from the original note were not included. [id number] Naloxone Nasal [place] WHY is this medicine prescribed? Prescription and nonprescription (over the counter) naloxone nasal spray is used along with emergency medical treatment to reverse the life-threatening effects of a known or suspected opiate (narcotic) overdose in adults and children. Naloxone nasal spray is in a class of medications called opiate antagonists. It works by blocking the effects of opiates to relieve dangerous symptoms caused by high levels of opiates in the blood. HOW should this medicine be used? Naloxone comes as a solution (liquid) to spray into the nose. It is usually given as needed to treat opiate overdoses. Each naloxone nasal spray contains a single dose of naloxone and should be used only once. You will probably be unable to treat yourself if you experience an opiate overdose. You should makesure that your family members, caregivers, or the people who spend time with you know how to tell if you are experiencing an overdose, how to use naloxone nasal spray, and what to do until emergency m edical help arrives. Your doctor or pharmacist will show you and your family members how to use themedication. You and anyone who may need to give the medication should read the instructions that come with the nasal spray. Ask your pharmacist for the instructions or visit the [employer]'s website to get the instructions. You should keep the nasal spray available at all times in case you experience an opioid overdose. Be aware of the expiration date on your device and replace the spray when this date passes. Naloxone nasal spray may not reverse the effects of certain opiates such as buprenorphine (Belbuca,Buprenex, Butrans, Sublocade) and pentazocine (Talwin) and may require additional naloxone doses with a new nasal spray each time. Symptoms of an opioid overdose include excessive sleepiness, not awakening when spoken to in a loudvoice or when the middle of your chest is rubbed firmly, shallow or stopped breathing, or small pupils (black circles in the center of the eyes). If someone sees that you are experiencing these symptoms, he or she should give you your first naloxone dose and then call 911 immediately. After receiving the naloxone nasal spray, a person should stay with you and watch you closely until emergency medical help arrives. To give the inhaler, follow these steps: ? Lay the person on their back to give the medication. ? Remove the naloxone nasal spray from the box. Peel back the tab to open the spray. ? Do not prime the nasal spray before using it. ? Hold the naloxone nasal spray with your thumb on the bottom of the plunger and your first and middle fingers on either side of the nozzle. ? Gently insert the tip of the nozzle into one nostril, until your fingers on either side of the nozzle are against the bottom of the person's nose. Provide support to the back of the person's neck with your hand to allow the head to tilt back. ? Press the plunger firmly to release the medication. ? Remove the nasal spray nozzle from the nostril after giving the medication. ? Turn the person on their side (recovery position) and call for emergency medical assistance immediately after giving the first naloxone dose. ? If the person does not respond by waking up, to voice or touch, or breathing normally or respondsand then relapses, give another dose. If needed, give additional doses (repeating steps 2 through 7) every 2 to 3 minutes in alternate nostrils with a new nasal spray each time until emergency medical assistance arrives. ? Put the used nasal spray(s) back in the container and out of reach of children until you can safely dispose of it. Ask your pharmacist or doctor for a copy of the [employer]'s information for the patient. Are there OTHER USES for this medicine? This medication may be prescribed for other uses; ask your doctor or pharmacist for more information. What SPECIAL PRECAUTIONS should I follow? Before receiving naloxone nasal spray, ? tell your doctor and pharmacist if you are allergic to naloxone, any other medications, or any ofthe ingredients in naloxone nasal spray. Ask your pharmacist for a list of the ingredients. ? tell your doctor and pharmacist what other prescription and nonprescription medications, vitamins, nutritional supplements, and herbal products you are taking or plan to take. Be sure to tell your doctor about all the medications you are taking. ? tell your doctor if you have or have ever had heart disease. ? tell your doctor if you are , plan to become , or are . If you receive naloxone nasal spray during , your doctor may need to monitor your unborn baby carefullyafter you receive the medication. What SIDE EFFECTS can this medicine cause? Some side effects can be serious. If you experience any of these symptoms, get emergency medical treatment: ? signs of opiate withdrawal such as body aches, diarrhea, fast, pounding, or irregular heartbeat, fever, runny nose, sneezing, sweating, yawning, nausea, vomiting, nervousness, restlessness, irritability, shivering, trembling, stomach cramps, weakness, and the appearance of hair on the skin standing on end ? seizures ? loss of consciousness ? crying more than usual (in babies treated with naloxone nasal spray) ? stronger than normal reflexes (in babies treated with naloxone nasal spray) Naloxone nasal spray may cause other side effects. Call your doctor if you have any unusual problems while receiving this medication. If you experience a serious side effect, you or your doctor may send a report to the Food and Drug Administration's (FDA) MedWatch Adverse Event Reporting program online (https://www.fda.gov/Safety/MedWatch) or by phone ( ). What should I know about STORAGE and DISPOSAL of this medication? Keep this medication in the container it came in, tightly closed, and out of reach of children. Store it at room temperature and away from light, excess heat and moisture (not in the bathroom). Do not freeze the naloxone nasal spray. Keep all medication out of sight and reach of children as many containers are not child-resistant. Always lock safety caps. Place the medication in a safe location - one that is up and away and out of their sight and reach. https://www.[employer] Dispose of unneeded medications in a way so that pets, children, and other people cannot take them.Do not flush this medication down the toilet. Use a medicine take-back program. Talk to your pharmacist about take-back programs in your community. Visit the FDA's Safe Disposal of Medicines website h ttps://goo.gl/c4Rm4p for more information. What OTHER INFORMATION should I know? Keep a written list of all of the prescription and nonprescription ([id number]-[id number]-[id number]) medicines, vitamins, minerals, and dietary supplements you are taking. Bring this list with you each time you visit a doctor or if you are admitted to the hospital. You should carry the list with you in case of aishwarya rgencies. Brand Name(s): ? Kloxxado?? ? Narcan?? ? Rezenopy?? also available generically This report on medications is for your information only, and is not considered individual patient advice. Because of the changing nature of drug information, please consult your physician or pharmacist about specific clinical use. The [employer] [employer] represents that the information provided hereunder was formulated with a reasonable standard of care, and in conformity with professional standards in the field. The [employer] makes no representations or warranties, express or implied, including, but not limited to, any implied warranty of merchantability and/or fitness for a particular purpose, with respect to such information and specifically disclaims all such warranties. Users are advised that decisions regarding drug therapy are complex medical decisions requiring the independent, informed decision of an appropriate health field care manager, and the information is provided for informational purposes only. The entire monograph for a drug should be reviewed for a thorough understanding of the drug's actions, uses and side effects. The [employer] does not endorse or recommend the use of any drug.The information is not a substitute for medical care. AHFS?? Patient Medication Information?. ?? Copyright, 2023. The [employer]??, [address], [address], [place], [place]. All Rights Reserved. Duplication for commercial use must be authorized by [facility]. Selected Revisions: May 26, 2024. AHFS?? Patient Medication Information?. ?? Copyright, 2024 * Gauri OnAFIA - Raj Cardona RN - 07/19/2025 9:44 AM EDT Images from the original note were not included. 450 Safe Use of Controlled Substances Taking a medicine may be an important part of your treatment. Your body should heal faster if you take medicine safely. Some medicines are called Controlled Substances. This means their use is controlled by law. Some of these can harm you if you do not take them safely. What can I do to make sure I take my medicine safely? ? Follow the instructions we give you for how to take your medicine. ? We will give you an instruction sheet for each of your medicines. Ask your doctor or nurse if youdo not get these instructions. ? Some medicines make you sleepy or cloud your thinking. Do not drive, use heavy machines or do dangerous activities while taking these medicines. ? Read the label on the bottle each time you take your medicine. ? Do not take your medicine with alcohol or other sedatives. ? Do not take medicine after the expiration date. ? It is against the law to sell your medicine or share it with others. ? Do not drive while using your medicine. How should I store my medicine? Store it in a safe place. This will keep others from taking your medicine and help you keep track of it. ? Store controlled substances in a cabinet or container that you can lock. ? Keep it in a place that is cool, dry and out of direct sunlight. ? Do not leave it in the car. ? Do not store in a refrigerator or freezer, unless your doctor tells you to. ? Call your doctor right away if your medicine is lost or stolen. How should I dispose of medicine that is or no longer needed? You may have medicine left over that you do not need or should not take. You must dispose of it theright way to protect yourself and others. You can ask your local pharmacist how to dispose of them.You can also visit these Web sites to learn more about disposal of controlled substances: ? Drug Enforcement Agency (HARIS): http://www.deadiversion.usdoj.gov/drug_disposal/takeback/index.htm ? National Association of Drug Diversion Investigators (NADAJIT): http://rxdrugdropbox.org/ ? [place] Office of Drug Control Policy: http://odcp.ky.gov/Prescription+Drug+Drop+Box+Sites.htm Are there concerns about or ? ? Before you take a medicine, tell your doctor if you are or plan to get . This could harm your baby. ? Tell your doctor if you breastfeed. Medicine in breast milk may be bad for your child. What if I have low or impaired vision? If you have vision problems, take extra care with your medicine. ? Wear your glasses when you take your medicine. ? Do not take medicine in the dark. What are the signs of overdose? Some controlled substances may cause breathing problems if you take more than your doctor recommends. This may lead to serious health problems or even . You and your caregivers should watch for the following signs of overdose. ? Slurred speech, confusion or stumbling ? Feeling dizzy or faint ? Acting drowsy or groggy ? Unusual snoring, gasping or snorting during sleep ? Hard to wake up or keep awake What should I or my caregiver do if I overdose? You or your caregiver should call 911 if you have any of these problems: ? Cannot wake up ? Cannot talk after waking up ? Shortness of breath, slow or light breathing, or breathing has stopped ? Heartbeat is slow or stopped ? Gurgling noise comes from the mouth or throat ? Body is limp or seems lifeless ? Face is pale or clammy ? Fingernails or lips look blue or purple What is a DANYELLE report? DANYELLE is a system that tracks prescriptions of controlled substances in [place]. The DANYELLE report tells your doctor if you have been prescribed controlled substances in the past. Doctors must get a DANYELLE report before prescribing controlled substances. What can I do if the information in my DANYELLE report is wrong? You or your doctor may contact the dispenser who reported the information to DANYELLE. If the dispenser agrees that the information should be changed, he or she can fix the DANYELLE report. However, the dispenser may certify that the report is correct. If that is the case, you or your doctor may then call the [place] Drug Enforcement and Professional Practices Branch at .This will start an investigation of the error. * Gauri Rico - Raj Cardona RN - 07/19/2025 9:44 AM EDT Images from the original note were not included. [id number] Insulin: How to Use and Where to Inject You give yourself insulin as a shot (injection). It's injected in the fatty layer under the skin (subcutaneous). Some people use an implanted device called an insulin pump. Others inject insulin using prefilled pens. Your healthcare team will teach you how to use insulin. Make sure you follow all instructions about when and where you use it. Where to inject your insulin ? Insulin is most often injected in belly (abdominal) fat. That's where it's absorbed fastest. ? Change the injection site each time you give yourself insulin. This helps prevent problems. ? Plan out how you'll move from site to site. ? Leave at least 2 inches around your belly button (navel). Ask your healthcare provider to teach you about rotating your injection site. This will help prevent a bump from forming under the skin from using the same spot. Also ask how to prevent injecting it into the muscle. Injecting into the muscle or into the bump can lead to incorrect insulin absorption. Injection sites in adults include the belly (abdomen), front of thighs, back of upper arms and upper buttocks. When to inject your insulin ? Follow your healthcare provider's instructions about when to give yourself insulin. ? It's very important to time your insulin shots with meals or snacks. Think about using the same part of the body for injecting insulin at the same time each day. For instance, you could always use your abdomen for morning injections and your legs for afternoon injections. Getting ready to inject insulin from a bottle ? Wash your hands. Use soap and clean, running water. ? Check the expiration date on the insulin. Don't use insulin. ? Look at the insulin. Clear insulin shouldn't be discolored or have crystals. Cloudy insulin shouldn't have clumps or crystals stuck to the side of the vial or pen. ? Let the insulin bottle reach room temperature before injecting. ? Wipe the top of the insulin bottle (vial) with alcohol. Single-dose prep 1. Pull back the plunger until the end of the plunger is even with the number of units of insulin you take. Always read the number of units of insulin at your eye level. 2. Put the needle into the top of the bottle. Then push the plunger in all the way. This pushes airinto the insulin bottle. 3. Turn the bottle and syringe upside down. The bottle will be on top. 4. Hold the needle and bottle straight up and down. Check that the needle is in the insulin. 5. Pull back on the plunger until the end of the plunger is even with the number of units of insulin you take. 6. Remove the needle. Then tap the syringe with a fingertip to remove any air bubbles. Mixed-dose prep Important: Some insulins shouldn't be mixed. Always check with your healthcare provider before mixing insulin. 1. Before you start, add up the 2 insulin doses. This is so that you will know the total of the 2 doses. For instance, you need 6 units of regular (clear) insulin and 7 units of NPH (cloudy). Your total will be 13 units. 2. Pull back the plunger until the end of the plunger is even with the number of units of insulin you take. Always read the number of units of insulin at your eye level. 3. Put the needle into the top of the bottle. Then push the plunger in all the way. This pushes airinto the insulin bottle. 4. If you use both regular and NPH insulin in a single syringe, carefully remove the needle from the first bottle. Repeat the above steps for the second bottle. 5. With both bottles prefilled with air, you're now ready to draw up the insulin. Always draw up regular (clear) insulin before NPH (cloudy). Put the needle in the bottle of regular (clear) insulin. 6. Turn the bottle and syringe upside down. The bottle will be on top. 7. Hold the needle and bottle straight up and down. Check that the needle is in the insulin. 8. Pull back on the plunger until the end of the plunger is even with the number of units of regular insulin you take. 9. Remove the needle from the regular (clear) insulin. Insert it into the NPH (cloudy) insulin bottle. Be careful not to push on the plunger. 10. Turn the bottle and syringe upside down. The bottle will be on top. 11. Hold the needle and bottle straight up and down. Check that the needle is in the insulin. 12. Pull back on the plunger until the end of the plunger is even with the total number of units you're taking. This number is the total of the 2 insulin doses together as shown in step 1 above. 13. Remove the needle. Then tap the syringe with a fingertip to remove any air bubbles. Injecting the insulin ? Wash your hands with clean, running water and soap for 20 seconds. ? Gently pinch up about 1 inch of skin. Don't squeeze the skin. Pinching up the skin may not be needed for certain body types or if you're using a shorter needle. Ask your healthcare provider if you should pinch up your skin for the injection. ? Put the needle straight into the skin, at a right (90-degree) angle. A 45- degree angle may be better for very thin people and children. Ask your provider which angle is best for you. ? Push in the plunger. Press until the syringe is empty. Let go of the skin. Then remove the needle. Don?t rub the site after you remove the needle. ? Wash your hands again when you're done. Getting rid of the syringe ? Put the needle and syringe in a sharps container. Don?t recap the needle. ? You can buy a sharps container at a pharmacy or medical supply store. Or you can also use an empty laundry detergent bottle or any other puncture-proof container and lid. ? When the sharps container is full, put it into a garbage bag and secure the top. Label the bag ?needles? or ?sharps.? ? Call your local waste company to ask about removing the sharps container. You can also check withthe Coalition for Safe Community Needle Disposal at www.safeneedledisposal.org or 659-664-1888. Storing your insulin ? Keep unopened insulin bottles in the refrigerator. An open bottle can be stored at room temperature, such as on the kitchen counter. But don?t let the insulin get too hot. Always keep it below 86??F (30??C). And never let it freeze. ? Always use insulin before the expiration date on the bottle. Throw bottles away. ? Use insulin within 28 days of opening the bottle. After 28 days, throw it away. To remember, write the date you opened it on the bottle. ? When you travel, take all of your diabetes supplies. Put them in a bag made to protect insulin from heat and cold. Always keep them with you. Then you'll have what you need if there's a delay or your suitcase is lost. ? Never leave insulin in the car. It can get too hot or too cold. Last Reviewed Date: 2023 00:00:00 ?? [id number] [employer]. All rights reserved. This information is not intended as a substitute for professional medical care. Always follow your healthcare professional's instructions. * [facility] - Raj Cardona RN - 07/19/2025 9:43 AM EDT Images from the original note were not included. [id number] Diet: Diabetes Food is an important tool that you can use to control diabetes and stay healthy. Eating well-balanced meals in the correct amounts will help you control your blood glucose levels and prevent low blood sugar reactions. It will also help you reduce the health risks or complications of diabetes. Thereis no one specific diet that is right for everyone with diabetes and you can eat a variety of foods. But there are general guidelines to follow. A registered dietitian (RD) will create a tailored diet approach that?s just right for you. They will also help you plan healthy meals and snacks. If you have any questions, call your dietitian for advice. Guidelines for success Talk with your health care provider before starting a diabetes diet or weight loss program. If you haven't talked with a dietitian yet, ask your provider for a referral. The following guidelines can help you succeed: ? Select foods from the 6 food groups below. Your dietitian will help you find food choices within each group. They will also show you serving sizes and how many servings you can have at each meal. o Grains, beans, and starchy vegetables. o Leafy vegetables. o Fruits. o Milk or yogurt. o Meat, poultry, fish, or tofu. o Healthy fats. ? Check your blood sugar levels as directed by your provider. Take any medicine as prescribed by your provider. Tell your provider if you are taking any other medicines, supplements, or herbal products. ? Learn to read food labels and pick the right portion sizes. ? Make a habit of including non-starchy vegetables, whole fruits, legumes, lean proteins, whole grains, nuts and seeds, and low-fat dairy or nondairy alternatives in your diet. ? Limit carbohydrates at each meal to help manage your diabetes. The carbohydrates you eat become glucose in the blood. This does not mean you can't eat carbohydrates. Talk with your health care provider about how many grams of carbohydrates are recommended for you at each meal. Eat 3 meals a day at consistent times. Don't skip meals. If you are hungry between meals, eat a small, low-carbohydratesnack. ? Talk with your health care provider if you drink alcohol. Alcohol can have unpredictable effects on blood glucose. It's also high in empty calories and can raise a type of blood fat called triglycerides. Drink water or calorie-free diet drinks instead. ? Eat less fat to help lower your risk of heart disease. Use nonfat or low-fat dairy products and lean meats. Stay away from fried foods. Use cooking oils that are unsaturated, such as olive, canola,or peanut oil. ? Don't eat foods with added salt. Salt can contribute to high blood pressure. This can cause heartdisease. People with diabetes already have a risk for high blood pressure and heart disease. Limit your salt to less than 2300 mg/day. One way to do this is by avoiding processed foods. ? Stay at a healthy weight. If you need to lose weight, talk with your health care provider about new medicines that can help with weight loss. Cut down on your portion sizes. But never skip meals. Exercise is an important part of any weight management program. Talk with your provider about how you've exercised in the past and the unique exercise challenges you may face if you carry a large amount of extra weight. Discuss an exercise program that?s right for you. ? For more information about the best diet plan for you, talk with an RD. To find an RD in your area, contact: o [employer] at www.eatright.org o [employer] at www.diabetes.org or [phone] o [employer] at www.diabeteseducator.org/ Last Reviewed Date: 2024 00:00:00 ?? [id number] [employer]. All rights reserved. This information is not intended as a substitute for professional medical care. Always follow your healthcare professional's instructions. * Gauri Rico - Raj Cardona RN - 07/19/2025 9:43 AM EDT Images from the original note were not included. 02221 Diabetes: Understanding Carbohydrates, Fats, and Protein Food is a source of fuel and nourishment for your body. It?s also a source of pleasure. Having diabetes doesn?t mean you have to eat special foods or give up desserts. Instead, your dietitian can show you how to plan meals to suit your body. To start, learn how different foods affect blood sugar. Carbohydrates Carbohydrates (carbs) are the main source of fuel for the body. They raise blood sugar. Many peoplethink carbohydrates are only in pasta or bread. But carbohydrates are in many kinds of foods. Carbsinclude: ? Sugars. These are naturally found in foods such as fruit, milk, honey, and molasses. Sugars can also be added to many foods. They may be added to cereals, yogurt, candy, and desserts. Sugars raise blood sugar rapidly. ? Starches. These are in bread, cereals, pasta, and dried beans. They?re also in corn, peas, potatoes, yam, acorn squash, and butternut squash. Starches raise blood sugar, but more slowly than simplesugars. ? Fiber. This is in foods such as vegetables, fruits, beans, and whole grains. Unlike other carbs, fiber isn?t digested or absorbed, so it can help keep blood sugar from rising too fast. It may also help keep blood cholesterol at a healthy level. Did you know? Even though carbohydrates raise blood sugar, it?s best to have some in every meal. They're an important part of a healthy diet. Fat Fat is an energy source that can be stored until needed. Fat doesn't raise blood sugar. But it can raise blood cholesterol. This increases the risk of heart disease. Fat is high in calories. Eating too many calories can cause weight gain. Not all types of fat are the same. More healthy: ? Monounsaturated fats. These are mostly found in vegetable oils such as olive, canola, and peanut oils. They're found in avocados and some nuts. Monounsaturated fats are healthy for your heart. That?s because they lower LDL ( bad ) cholesterol. ? Polyunsaturated fats. These are mostly found in vegetable oils such as corn, safflower, and soybean oils. They're found in some seeds, nuts, and fish. Polyunsaturated fats lower LDL ( bad ) cholesterol. So choosing them instead of saturated fats is healthy for your heart. Some unsaturated fats can help lower triglycerides. Less healthy: ? Saturated fats. These are found in animal products such as meat, poultry, whole milk, lard, and butter. Saturated fats raise LDL ( bad ) cholesterol. They are not healthy for your heart. ? Trans fats. These are formed when vegetable oils are processed into solid fats. They are found inmany processed foods. Trans fats raise LDL ( bad ) cholesterol and lower HDL ( good ) cholesterol. They are not healthy for your heart. Protein Protein helps the body build and repair muscle and other tissue. Protein has little or no effect onblood sugar. But many foods that have protein also have saturated fat. By choosing low-fat protein sources, you can get the benefits of protein without the extra fat: ? Plant protein. This is found in dry beans and peas, nuts, and soy products such as tofu and soy milk. These foods tend to have no cholesterol. Most are low in saturated fat. ? Animal protein. This is found in fish, poultry, meat, cheese, milk, and eggs. These foods have cholesterol. They can be high in saturated fat. Aim for lean, lower-fat choices. Don't eat fried foods. Last Reviewed Date: 2024 00:00:00 ?? [employer]. All rights reserved. This information is not intended as a substitute for professional medical care. Always follow your healthcare professional's instructions. * Gauri Rico - Raj Cardona RN - 07/19/2025 9:43 AM EDT Images from the original note were not included. 61555 Discharge Instructions: Packing a Wound You have a wound that needs a special dressing, or packing. When a wound is deep, or when it tunnels under the skin, packing the wound can help it heal. The packing material soaks up any drainage from the wound, which helps the tissues heal from the inside out. Without the packing, the wound could close at the top. This would trap fluid and possibly bacteria in the deeper areas of the wound, causing your wound not to heal. The wound could also get infected. You were shown how to pack your woundbefore you left the hospital. These steps will help you remember how to take care of your wound. Follow any specific directions from your doctor. Gather your supplies Keep your supplies all in one place. Put them in a basket or large bag. You will need: ? Packing material. ? Sterile wetting solution. ? Sterile gloves. ? A clean bowl. ? Scissors. ? A clean towel. ? A bandage to put on the top of the wound after you have packed it. ? Tape. ? Sterile cotton swabs. ? Alcohol or alcohol wipes. ? Supplies to clean the wound. ? A small plastic bag for old dressing supplies. Getting ready ? Put pets and children in another room, away from your work area. ? Wash your hands before touching any of your supplies. Follow these steps: o Turn on the water. o Wet your hands and wrists. o Use liquid soap from a pump dispenser. Work up a lather. o Scrub your hands thoroughly to the count of 20. (Hum the Happy Birthday song twice.) o Rinse your hands with your fingers pointing toward the drain. o Dry your hands with a clean cloth or paper towel. Use this towel to turn off the faucet. o Remember, after you have washed your hands, don?t touch anything other than your supplies. Wash your hands again if you touch anything, like furniture or your clothes. ? Clean the area where you will set out your dressing supplies. ? Put a clean towel over the area and set a clean bowl on it. Don?t touch the inside of the bowl. ? Clean the scissors with alcohol or an alcohol wipe, and place the scissors on the clean towel. Prepare the packing material ? Wash your hands again. ? Pour enough wetting solution into the clean bowl to wet the packing material. ? Cut off a length of packing material, and drop it carefully into the bowl of wetting solution. (Remember, the amount of packing material needed to fill the wound should become less and less as the area heals. You will need to adjust the length of the packing material over time.) ? Open your new outer dressing material and place it on the towel. Keep it away from the bowl, and don?t get it wet. ? Cut pieces of tape to desired lengths. You will use these strips to hold your outer dressing in place. For now, hang the pieces of tape on the edge of your work surface. ? Gently remove your existing bandage (old tape, outer dressing, and packing). Check the bandage for any drainage or odor. Put these items in a small plastic bag for disposal. ? Inspect the wound. Look for signs that it isn't healing normally. (See When to call your doctor.) Clean and pack the wound ? Wash your hands thoroughly again. Use soap and clean, running water. ? Clean the wound as you were shown by your doctor. ? Put on the gloves. Gently squeeze the packing material to get rid of excess wetting solution. Thepacking material should be wet, but not dripping. ? Gently put the packing material into the wound. Packing should fill the wound space completely, but not tightly. Filling the space tightly will cause pressure and pain. Use a cotton swab to gently guide the packing into small or tunneled areas. ? Put the new outer dressing over the packing and wound site. ? Tape the outer dressing in place. ? Remove your gloves. ? Wash your hands again with soap and water. Follow-up Make a follow-up appointment. It's recommended that you be seen within 48 hours after the first time a packing is placed. When to call your doctor Contact your doctor right away if: ? There is increased drainage from the wound. ? There is redness in or around the wound. ? You have increased pain or swelling in or around the wound. ? The wound tissue changes from pink to white, yellow, or black in color. ? There is odor coming from the wound. ? The wound gets bigger in size or depth. ? You have a fever above 100.4??F (38??C) or higher, or as directed by your doctor. ? You have shaking chills. Last Reviewed Date: 2025 00:00:00 ?? [id number] [employer]. All rights reserved. This information is not intended as a substitute for professional medical care. Always follow your healthcare professional's instructions. * Jodycynthia Jacky - Raj Cardona RN - 07/19/2025 9:43 AM EDT Images from the original note were not included. [id number] Negative Pressure Wound Therapy Negative pressure wound therapy (NPWT) is a type of treatment that helps wounds heal. It's also known as vacuum-assisted wound closure or wound VAC. This treatment uses low atmospheric pressure to help reduce inflammation and grow new tissue. It can help the wound heal more quickly. Understanding NPWT A NPWT device has several parts. A foam or gauze dressing is put directly on the wound. The dressing is changed every 24 to 72 hours. An adhesive film covers and seals the dressing and wound. A drainage tube leads from under the adhesive film and connects to a portable vacuum pump. This pump removes air pressure over the wound, and it also helps drain any fluid from the wound. It may do this const antly. Or it may do it in cycles. During the treatment, you?ll need to carry the portable pump everywhere you go. Why NPWT is used You might need this therapy for a recent traumatic wound. Or you may need it for a chronic wound. This is a wound that does not heal the way it should over time. This can happen with wounds in peoplewho have diabetes. You may need NPWT if you?ve had a recent skin graft. And you may need it for a large wound. Large wounds can take a longer time to heal. NPWT may help your wound heal more quickly by: ? Draining extra fluid from the wound. ? Reducing swelling. ? Reducing bacteria in the wound. ? Keeping your wound moist and warm. ? Helping draw together wound edges. ? Increasing blood flow to your wound. ? Decreasing inflammation. NPWT may decrease your overall discomfort. The dressings usually need to be changed less often. Andthey may be easier to keep in place. Risks of NPWT NPWT has some rare risks, such as: ? Bleeding, which may be severe. ? Wound infection. ? An abnormal connection between the intestinal tract and the skin (enteric fistula). This is usually a problem only if the NPWT is used on an open belly wound that was unable to be closed. Correct training in changing the dressing can help reduce these risks. Also, your health care provider will make sure you are a good candidate for the therapy. Certain problems can increase your riskfor complications. These include: ? Exposed organs or blood vessels. ? High risk of bleeding from another medical problem. ? Wound infection. ? Nearby bone infection. ? wound tissue. ? Cancer tissue. ? Fragile skin, such as from aging or longtime use of topical steroids. ? Allergy to adhesive. ? Very poor blood flow to your wound. ? Wounds close to joints that may reopen because of movement. Your provider will discuss the risks that apply to you. Make sure to talk with them about all your questions and concerns. Getting ready for NPWT You likely won?t need to do much to get ready for your wound therapy. In some cases, you may need to wait a while before having this therapy. For example, your provider may first need to treat an infection in your wound. or damaged tissue may also need to be removed from your wound. You or a caregiver may need training on how to use the NPWT device. This is done if you will be able to have your wound vacuum therapy at home. In other cases, you may need to have your wound vacuum therapy in a health care facility. On the day of your procedure A provider will cover your wound with foam or gauze wound dressing. An adhesive film will be put over the dressing and wound. This seals the wound. The foam connects to a drainage tube, which leads to a vacuum pump. This pump is portable. When the pump is turned on, it draws fluid through the foam and out the drainage tubing. The pump may run constantly, or it may cycle on and off. Your exact setup will depend on the specific type of wound vacuum system that you use. Managing your wound You may need the dressing changed about once a day, or less often, such as every few days. You may need it changed more or less often, depending on your wound. You or your caregiver may be trained todo this at home. Or it may be done by a visiting provider. Your provider may prescribe a pain medicine. This is to prevent or reduce pain during the dressing change. You will likely need to use the NPWT system for several weeks or months to allow the wound to heal.During this time, you?ll carry the portable pump everywhere you go. Nutrition for wound healing During this time, make sure you follow a healthy diet. This is needed so the wound can heal and to prevent infection. Your provider can tell you more about what to include in your diet during this time. Follow up with your provider if you have a medical condition that led to your wound, such as diabetes. Your provider can help you prevent future wounds. Follow-up care Your provider will carefully keep track of your healing. Make sure to keep all follow-up appointments. This can include measuring the size of the wound and taking pictures of it. When to call your doctor Contact your health care provider right away if: ? You have a fever of 100.4??F (38??C) or higher, or as directed by your provider. ? You have chills. ? There is increased redness, swelling, or warmth around the wound. ? You have more pain. ? There is bright red blood or blood clots in tubing or the collection chamber of the NPWT device. Last Reviewed Date: 2024 00:00:00 ?? [id number] [employer]. All rights reserved. This information is not intended as a substitute for professional medical care. Always follow your healthcare professional's instructions. * Gauri Rico - Raj Cardona RN - 07/19/2025 9:43 AM EDT Images from the original note were not included. 26324 Discharge Instructions: Changing Your Dressing You are going home with stitches, surgical meagan, special strips of surgical tape, or surgical skin glue. These items were used to close your incision, help stop bleeding, and speed healing. It's important to follow your doctor's instructions for cleaning your incision. Below are some tips to help your incision heal. Home care ? Clean your work area: o Put pets in another room. o Clean your work area with soap and water. o Spread a clean cloth or paper towel over the surface. o Move away from the clean surface if you need to cough or sneeze. ? Gather your supplies. You'll need: o Packaged dressing for your wound. o Irrigation solutions (if prescribed by your doctor). o Pair of scissors (cleaned with soap and water). o Medical tape. o Disposable gloves (2 pairs). o Clean plastic trash bag (open it before you wash your hands). ? Wash your hands: o Use liquid soap. o Work up a good lather and scrub for 20 seconds. o Be sure to scrub between your fingers and under your nails. o Rinse with clean, running water. o Use a clean paper towel to dry your hands and turn off the faucet. ? Prepare your dressing supplies: o Peel back the edges of the dressing packages. Pour any irrigation solutions into solution cups. o Cut each piece of tape 4 inches longer than the dressing. ? Remove the old dressing: o Put on the first set of disposable gloves. o Loosen the tape on the dressing by pulling gently toward the incision. Remove the dressing 1 layer at a time. Put it in the plastic bag immediately. o Remove your gloves and put them in the plastic bag. Wash your hands. o Put on a new pair of gloves. ? Clean and dress the incision: o Irrigate and clean the incision and apply a new dressing as directed. o Put all used supplies in the plastic bag. Remove your gloves last and put them in the plastic bag. Seal the bag and put it in the trash. o Be sure to wash your hands again. Care for specific closures Follow these guidelines unless your doctor tells you otherwise: ? Stitches or meagan. Once you no longer need to keep these dry, clean the wound daily, using the instructions listed above. First remove the bandage using clean hands. Then wash the area gently with soap and clean, running water. Use a wet cotton swab to loosen and remove any blood or crust that forms. After cleaning, put a thin layer of antibiotic ointment on if your doctor instructed you to do so. Then put on a new bandage. ? Skin glue. Don?t put liquid, ointment, or cream on your wound while the glue is in place. Avoid activities that cause heavy sweating. Protect the wound from sunlight. Don't scratch, rub, or pick atthe glue. Don't put tape directly over the glue. The glue should peel off within 5 to 10 days. ? Surgical tape. Keep the area dry. If it gets wet, blot the area dry with a clean towel. Surgical tape usually falls off within 7 to 10 days. If it has not fallen off after 10 days, contact your doctor before taking it off yourself. If you are told to remove the tape, it can be removed by pulling on it gently from the edge. For pieces that are stuck firmly, put mineral oil or petroleum jelly on a cotton ball. Gently rub the tape until it's removed. Follow-up care Follow up with your doctor to ask how long stitches or meagan should be left in place. Be sure to return for suture or staple removal as directed. If tape closures were used, remove them yourself when your doctor tells you to, if they have not fallen off on their own. If skin glue was used, the glue will wear off by itself. Call your doctor if you have any questions or concerns about how to carefor your incision at home. When to seek medical care Call your doctor right away if you have: ? More pain, bleeding, redness, or foul-smelling discharge around the incision area. ? A fever of 100.4??F ( 38??C) or higher, or as directed by your doctor. ? Shaking chills. ? Vomiting or nausea that doesn?t go away. ? Numbness, coldness, or tingling around the incision area. ? Opening of the stitches or wound. ? Stitches or meagan come apart or fall out. ? Surgical tape falls off before 7 days, or as directed by your doctor. Last Reviewed Date: 2025 00:00:00 ?? [id number] [employer]. All rights reserved. This information is not intended as a substitute for professional medical care. Always follow your healthcare professional's instructions. * Gauri Rico - Raj Cardona RN - 07/19/2025 9:42 AM EDT Images from the original note were not included. [id number] Abscess (Incision and Drainage) An abscess is sometimes called a boil. It happens when bacteria get trapped under the skin and start to grow. Pus forms inside the abscess as the body responds to the bacteria. An abscess can happen from an insect bite, ingrown hair, blocked oil gland, pimple, cyst, or puncture wound. Your health care provider has drained the pus from your abscess. If the abscess pocket was large, your provider may have put in gauze packing. Your provider will need to remove or replace it on your next visit. Antibiotics may have been prescribed if the infection is spreading around the wound. Butyou may not need them to treat a simple abscess. The wound will take about 1 to 2 weeks to heal, depending on the size of the abscess. Healthy tissue will grow from the bottom and sides of the opening until it seals over. Home care These tips can help your wound heal: ? The wound may drain for the first 2 days. Cover the wound with a clean dry dressing. Change the dressing if it becomes soaked with blood or pus. ? If a gauze packing was placed inside the abscess pocket, you may be told to remove it yourself. You may do this in the shower. Once the packing is removed, you should wash the area in the shower, or clean the area as directed by your health care provider. Continue to do this until the skin opening has closed. Carefully throw away the packing to prevent spreading any infection. Make sure you wash your hands after changing the packing or cleaning the wound. ? If you were prescribed antibiotics, take them as directed until they are all gone to be sure the infection has completely cleared. ? You may use acetaminophen or ibuprofen to control pain, unless another pain medicine was prescribed. If you have liver disease or ever had a stomach ulcer, talk with your provider before using these medicines. Follow-up care Follow up with your health care provider, or as advised. If a gauze packing was put in your wound, it should be removed in 1 to 2 days, or as directed. Check your wound every day for any signs that the infection is getting worse. When to get medical advice Contact your health care provider or seek medical care right away if you have: ? Increasing redness or swelling. ? Red streaks in the skin leading away from the wound. ? Increasing local pain or swelling. ? Continued pus draining from the wound 2 days after treatment. ? A fever of 100.4??F (38??C) or higher, or as directed by your provider. ? A boil that returns after treatment. Last Reviewed Date: 2024 00:00:00 ?? [id number] [employer]. All rights reserved. This information is not intended as a substitute for professional medical care. Always follow your healthcare professional's instructions. * Gauri LouieJANETH - Raj Cardona RN - 07/19/2025 9:42 AM EDT Images from the original note were not included. 30993 Preventing a Surgical Site Infection A risk of any surgery is an infection at the surgical site. The surgical site is a cut the surgeon makes in the skin to do the surgery. Surgical site infections can range in type. It may be a minor skin infection. Or it may be severe and include tissue under the skin or other organs. In some cases,a severe infection can cause . The information below tells you: ? About surgical site infections. ? What hospitals do to prevent them. ? How they?re treated if they do occur. ? What you can do to prevent an infection. Hand washing reduces the risk of infection. What causes a surgical site infection? Germs are everywhere. They?re on your skin, in the air, and on things you touch. Many germs are good. Some are harmful. Surgical site infections occur when harmful germs enter your body through the incision in your skin. Some infections are caused by germs that are in the air or on objects. But most are caused by germs found on and in your own body. Who is at risk for a surgical site infection? Anyone can have a surgical site infection. Your risk is higher if you: ? Are an older adult. ? Have a weak immune system. ? Have other health conditions such as diabetes. ? Take certain medicines, such as steroids. ? Are a smoker. ? Have certain types of surgery, such as abdominal surgery. ? Have poor nutrition. ? Are very overweight. ? Have a surgery that lasts longer than 2 hours. What are the symptoms of a surgical site infection? An infection often shows up as skin redness, pain, and swelling around the incision that gets worse. Later, a cloudy or greenish-yellow fluid may come from the incision. The fluid may smell bad. The incision may pull apart or open up. You are likely to have a fever and may feel very ill. Symptoms can appear at any time. They may happen from hours to weeks after surgery. Implants such as an artificial knee or hip can become infected at any time after the surgery. How is a surgical site infection treated? ? A surgical site infection is treated with antibiotics. The type of medicine you get will depend on what may be causing the infection. Most serious wound infections need wound care. In some cases, surgery may be needed on the infected wound. ? An infected skin wound may be reopened and cleaned. A deep wound may need to be packed with gauze. The gauze is changed often until the wound starts to heal from the inside out. Your health care provider will decide the best way to treat your infection. ? If an infection occurs where an implant is placed, the implant may be removed. ? If you have an infection deeper in your body, you may need surgery to treat it. What hospitals do to prevent surgical site infections Many hospitals take these steps to help prevent surgical site infections: ? Handwashing. Before the surgery, your surgeon and all surgery staff scrub their hands and arms with an antiseptic soap. ? Clean skin. The site where your incision is made is carefully cleaned with an antiseptic solution. ? Sterile clothing and drapes. The surgical team wears medical uniforms. These are known as scrub suits. They wear long-sleeved surgical gowns, masks, caps, shoe covers, and sterile gloves. Your bodyis fully covered with a large sterile sheet (sterile drape). There is an opening in the sheet wherethe incision is made. ? Clean air. Operating rooms have special air filters. They use positive pressure airflow to prevent unfiltered air from entering the room. ? Careful use of antibiotics. Antibiotics are given no more than 60 minutes before the incision is made. They are generally stopped within 24 hours after surgery. This depends on the type of surgery.This helps kill germs but prevents problems that can occur when antibiotics are taken longer. ? Controlled blood sugar levels. Your blood sugar level may rise. This can be because of the stressof the surgery. Your blood sugar level is watched closely to make sure it stays within a normal range. High blood sugar delays wound healing. This increases the risk of infection. ? Controlled body temperature. A ujftz-kjfx-xgbtht temperature during or after surgery prevents oxygen from reaching the wound. This makes it harder for your body to fight infection. Hospitals may warm I.V. fluids, and provide warm-air blankets. Your temperature is watched throughout the surgery. ? Safe hair removal. Any hair that must be removed is clipped right before the incision, not shavedwith a razor. This prevents tiny nicks and cuts where germs can enter. ? Wound care. After surgery, a closed wound is covered with a sterile dressing for 1 to 2 days. Open wounds are packed with sterile gauze and covered with a sterile dressing. What you can do to prevent a surgical site infection ? Ask questions. Learn what your hospital is doing to prevent infection. ? If instructed, shower or bathe with plain soap the night before and the day of your surgery. Follow all instructions you're given. You may be asked to use a special cleanser that you don?t rinse off. ? If you smoke, stop as long as possible before and after the surgery. Ask your provider about waysto quit. ? Take antibiotics only when your provider tells you to. Using antibiotics when they?re not needed can create germs that are harder to kill. Finish the entire prescription of your antibiotics even ifyou feel better. ? Ask health care workers to clean their hands with plain soap and water or with an alcohol-based hand hand bander before and after caring for you. Don?t be afraid to remind them. ? After surgery, eat healthy foods. Care for your incision as directed by your health care team. When to contact your doctor Contact your provider or seek medical care right away if: ? The pain at the surgical site gets worse. ? A red streak, worse redness, or puffiness appears near the incision. ? Yellowish, cloudy, or bad-smelling fluid leaks from the incision. ? Your stitches dissolve before the wound heals. ? You have a fever of 100.4?? F ( 38??C ) or higher, or as advised by your provider. ? You have a tired feeling that doesn?t go away. Last Reviewed Date: 2024 00:00:00 ?? [id number] [employer]. All rights reserved. This information is not intended as a substitute for professional medical care. Always follow your healthcare professional's instructions. * Gauri LouieJANETH - Raj Cardona RN - 07/19/2025 9:42 AM EDT Images from the original note were not included. 151 Gangrene What is gangrene? Gangrene is a dangerous and potentially deadly health problem. It happens when the blood flow to anarea of tissue is cut off. This causes the tissue to break down and . Gangrene often turns the affected skin a greenish-black color. The word gangrene is not related to the color green but to the condition itself. It comes from Setswana and Latin words for a gnawing sore or decayed tissue. There are different types of gangrene. Some include: ? Dry gangrene occurs when the blood flow to tissue is cut off. The area becomes dry, shrinks, and turns black. ? Wet gangrene occurs if bacteria invade this tissue. This makes the area swell, drain fluid, and smell bad. ? Gas gangrene occurs if bacteria invade the deep muscle tissue. The skin may have bubbles and it may have a crackling sound. This is because gas bubbles have formed in the muscle tissue. ? Kristy's gangrene occurs if bacteria invade the genital organs, such as the scrotum, penis, or perineum. An infection in the genital area or urinary tract associated with trauma, operative procedures, or urinary tract disease, can cause this. The area becomes painful and red with quick progression to gangrene and sloughing of the tissue. What causes gangrene? Gangrene happens when blood supply to certain tissues is stopped. This can happen due to: ? An infection ? An injury, such as a burn, infected dog bite, or combat wound ? Severe cases of frostbite ? A chronic disease that harms the circulatory system, such as diabetes, peripheral artery disease,or Raynaud disease. These diseases can lead to gangrene if they are severe and not under control. ? Certain medicines Who is at risk for gangrene? You may be at higher risk for gangrene if you have: ? A chronic disease, such as diabetes, peripheral artery disease, or Raynaud disease ? Skin infection ? Injury ? Hernandez ? Dog bite ? Frostbite ? Long-term use of tobacco products ? Need for certain strong medicines to raise the blood pressure while in the hospital What are the symptoms of gangrene? Symptoms of gangrene depend on its location and cause. Dry gangrene often starts with a red line around the affected area. This area then turns dry and black. These are other symptoms of gangrene: ? Coldness and numbness in the affected area ? Pain in or beyond the affected area ? Redness and swelling around a wound. This is often a sign of wet gangrene. ? Sores that keep cropping up in the same place ? Persistent, unexplained fever, with a temperature higher than 100.4??F (38??C) ? A bad-smelling wound ? Striking discoloration of the skin, with shades of greenish-black, blue, red, or bronze ? Pus or discharge from a wound ? Blisters and a crackling feeling under the skin ? Muscle aches, weakness, diarrhea, and loss of appetite (sometimes) ? Confusion, pain, fever, and low blood pressure, especially if the infected gangrene spreads inside your body ? Shock The earlier gangrene is treated, the more successful the treatment is likely to be. So if you have any of the above symptoms, seek care right away. How is gangrene diagnosed? If you have symptoms of gangrene, your healthcare provider will give you a physical exam. They willcheck for signs of tissue . They may also ask you about any chronic health problems you have that could be linked to the gangrene. Your healthcare provider may also want to do lab tests to check for the cause of and complications of gangrene. A higher than normal number of white blood cells can mean you have an infection. Your healthcare provider may take samples of tissue or fluid from the affected area and your blood to lookat in the lab. If your healthcare provider thinks you may have internal gangrene, they may order imaging tests or surgery to find out for sure. How is gangrene treated? Treatment will depend on your symptoms, age, and general health. It will also depend on how bad thecondition is. Treatment of gangrene will often consist of one or more of these steps: ? Antibiotics. These medicines can be used to kill bacteria in the affected area. They are used only to treat wet gangrene. ? Surgery to remove the tissue. When tissue is limited to a specific part of the body, removing the tissue and leaving healthy surrounding tissue is called debridement. It can help keep the gangrene from spreading to healthy tissues nearby and from getting infected. In cases where the gangrene is advanced, widespread, and not able to be cured otherwise, a finger, toe, foot, or moremay need to be amputated. ? Vascular surgery. If your gangrene is caused by poor blood flow, your healthcare provider may recommend surgery to improve your circulation. People whose gangrene is a result of a blocked artery, for example, may have bypass surgery or an angioplasty to fix the problem. ? Hyperbaric oxygen therapy. During this procedure, you are placed in a special pressurized chamberthat gives oxygen at high pressures, forcing more oxygen into the affected area. This may speed up healing and help kill bacteria. This treatment works very well in people who develop gangrene from diabetic foot ulcers. ? Maggot debridement. This is a nonsurgical alternative to traditional debridement. During this procedure, clean fly larvae are placed on the affected area. They eat away tissue and remove bacteria. This is a painless procedure. What are possible complications of gangrene? Gangrene can spread quickly over a large area of the body. So the amount of tissue can sometimes be quite large. Treating these large areas may result in: ? Large areas of scarring ? The need for reconstructive surgery ? Amputation Severe cases of gangrene may lead to infection that spreads throughout the body, organ failure, andeven . What can I do to prevent gangrene? You can help prevent gangrene by carefully watching any wounds you have and getting care right awayif you see signs of infection. If you have certain conditions that can affect blood circulation, such as diabetes, follow your healthcare provider?s instructions on managing your condition. When should I call my healthcare provider? Wet gangrene is often life-threatening. So get medical care right away. The outlook with wet gangrene depends on the location and size of the affected area, as well as any other health problems you might have. Dry gangrene often may not get worse or cause complications. But it can progress to wet gangrene. You should see your healthcare provider for either type. Hebert points about gangrene ? Gangrene is a dangerous and potentially deadly health problem. It happens when the blood flow to an area of tissue is cut off. ? People with injuries, diabetes, peripheral artery disease, and Raynaud disease are at higher riskfor gangrene. ? Symptoms of gangrene include coldness, numbness, pain, redness, or swelling in the affected area. ? Surgery of one type or another is often needed. This may include amputation of the affected part of the body. ? Wet gangrene is a medical emergency because of the bacterial infection. Next steps Tips to help you get the most from a visit to your healthcare provider: ? Know the reason for your visit and what you want to happen. ? Before your visit, write down questions you want answered. ? Bring someone with you to help you ask questions and remember what your provider tells you. ? At the visit, write down the name of a new diagnosis and any new medicines, treatments, or tests.Also write down any new instructions your provider gives you. ? Know why a new medicine or treatment is prescribed and how it will help you. Also know what the side effects are. ? Ask if your condition can be treated in other ways. ? Know why a test or procedure is recommended and what the results could mean. ? Know what to expect if you do not take the medicine or have the test or procedure. ? If you have a follow-up appointment, write down the date, time, and purpose for that visit. ? Know how you can contact your healthcare provider if you have questions. Last Reviewed Date: 2023 00:00:00 ?? [id number] [employer]. All rights reserved. This information is not intended as a substitute for professional medical care. Always follow your healthcare professional's instructions. * Discharge Summary - DajuanBecky, MATCHING MACHINE OPERATOR - 07/19/2025 9:31 AM EDT Images from the original note were not included. Hospitalization Admit Date/Time: 07/08/2025 5:58 PM Admitting Attending: Luanne Crawford Discharge Date: 07/19/25 Discharge Attending Physician: Anne Franco MD PCP name and Address: Yenny Dhillon, MATCHING MACHINE OPERATOR [address] [facility] / [place] [address] Referring provider name and address: Keaton Patel MD [address] [place] [address] [place] [address] Chief Concern, Brief History of Present Illness, and Hospital Course Cristina Brown is a 50 y.o. female with PMH of DM, hidradenitis supparativa, current smoker (1.5ppd), hx of absent seizures, UTI, depression, anxiety, asthma, HLD, celiac disease, presenting to [facility] on 07/08/2025 as transfer with concern for necrotizing fascitis. EGS consulted for evaluation. Currently not on pressors. Had received 3L fluids at OSH and was started on levo which has since been weaned off. Received vancomycin, cefelexine and clindamycin at OSH. Per patient, she had wound start in R medial thigh on that she originally thought was related to her HS and lanced with help of sister. However, the wound has worsened and she notes that it is ascending and descending onher thigh. On exam, has concern for necrotic tissue with foul smelling drainage, cellulitis and warmth with tenderness to palpation. WBC of 26. Lactate of 2.6. Cr of 2.2 at OSH. CMP here pending. No CT scan but exam concerning for nec fas. She notes she was recently on bactrim for UTI that she has finished. Currently on linezolid, cefepime and flagyl in ED. Off levo. Slightly hypotensive. Taken from admission H&P. Diagnosis: necrotizing fasciitis Surgery: 07/08 ([facility]) Excisional debridement of right lower extremity, groin, pubis, and abdominal wallof skin, subcutaneous tissue, and muscle fascia 07/10 ([facility]) Right groin wound exploration and washout 07/11 ([facility]) Right groin/perineum/thigh/abdominal wound exploration and washout Follow up with [facility] with Lilliana Morfin APRN in 2 weeks for wound evaluation. Referral to Endocrinology (Ordered) Follow up with PCP within one week after discharge for post hospitalization visit and chronic disease management. Physical therapy and occupational therapy evaluated the patient during hospitalization and recommends acute rehab. At the time of discharge the patient was hemodynamically stable, tolerating PO, voiding spontaneously, normal bowel function, mobilizing appropriately, with their pain controlled with PO medication. At this time, the patient has obtained the maximum benefit from the present hospital stay, and so will be discharged to [facility]. Surgeries and Procedures Procedures performed in this encounter Procedures Case Request Operating Room: APPLICATION OR REPLACEMENT, WOUND VAC Case Request Operating Room: Debridement, possible partial closure of right groin wound Case Request Operating Room: DEBRIDEMENT, WOUND Case Request Operating Room: IRRIGATION AND DEBRIDEMENT, WOUND Critical Care Critical Care Critical Care Critical Care Debridement, partial closure of right groin wound (Right) Medication List PAUSE taking these medications valsartan-hydroCHLOROthiazide 320-12.5 MG tablet Wait to take this until your doctor or other care provider tells you to start again. Commonly known as: Diovan-HCT Take 1 tablet by mouth 1 time each day. .. acetaminophen 500 MG tablet Commonly known as: Tylenol Take 2 tablets by mouth every 6 hours. busPIRone 15 MG tablet Commonly known as: Buspar Take 1 tablet by mouth 3 times a day. cholecalciferol 5,000 Units tablet Commonly known as: D3-5 Take 1 tablet by mouth daily. DULoxetine [address] capsule Commonly known as: Cymbalta Take 1 capsule by mouth daily. Do not crush or chew. EQ Fiber Therapy 625 MG tablet Generic drug: polycarbophil Take 1 tablet by mouth daily. fluticasone 50 MCG/ACT nasal spray Commonly known as: Flonase Administer 1 spray into each nostril 2 times a day. folic acid 1 MG tablet Commonly known as: Folvite Take 1 tablet by mouth 1 time each day. insulin glargine-yfgn 100 UNIT/ML injection vial Inject 10 Units under the skin nightly. * insulin lispro 100 UNIT/ML injection Commonly known as: Admelog Inject 0-5 Units under the skin 3 times a day with meals. See After Visit Summary for instructions on how to take your insulin. * insulin lispro 100 UNIT/ML injection Commonly known as: Admelog Inject 0-3 Units under the skin 2 times a night. See After Visit Summary for instructions on how totake your insulin. Jose pack Take 1 Package by mouth 2 times a day with meals. lamoTRIgine 100 mg tablet sustained-release 24 hour 24 hr tablet Commonly known as: LaMICtal XR Take 1 tablet by mouth daily. Linzess 72 MCG capsule capsule Generic drug: linaCLOtide Take 1 capsule by mouth daily before breakfast. loratadine 10 MG tablet Commonly known as: Claritin Take 1 tablet by mouth daily. methocarbamol 750 MG tablet Commonly known as: Robaxin Take 1 tablet by mouth 3 times a day. metoprolol succinate XL 100 MG 24 hr tablet Commonly known as: Toprol-XL Take 1 tablet by mouth daily. Do not crush or chew. mirabegron ER 25 MG tablet Commonly known as: Myrbetriq Take 1 tablet by mouth daily. montelukast 10 MG tablet Commonly known as: Singulair Take 1 tablet by mouth daily. naloxone 4 mg/0.1 mL nasal spray Commonly known as: Narcan 1. Give 1 spray in nostril for no/slow breathing or cannot wake after opioid use 2. Call 911 3. Repeat in other nostril if symptoms continue naproxen 500 MG tablet Commonly known as: Naprosyn Take 1 tablet by mouth 2 times a day with meals. * oxyCODONE 10 MG immediate release tablet Commonly known as: Roxicodone Take 1 tablet by mouth every 6 hours as needed for severe pain. * oxyCODONE 5 MG immediate release tablet Commonly known as: Roxicodone Take 1 tablet by mouth Q MWF. polyethylene glycol 17 g packet Commonly known as: Miralax Take 17 g by mouth daily. Start taking on: July 20, 2025 rosuvastatin 20 MG tablet Commonly known as: Crestor Take 1 tablet by mouth daily. senna-docusate 8.6-50 MG tablet Commonly known as: Leann-Colace Take 1 tablet by mouth 2 times a day. Symbicort 160-4.5 MCG/ACT inhaler Generic drug: budesonide-formoterol Inhale 2 puffs 2 times a day. Vitamin E 180 MG (400 UNIT) capsule Take 1 tablet by mouth daily. * This list has 4 medication(s) that are the same as other medications prescribed for you. Read thedirections carefully, and ask your doctor or other care provider to review them with you. Where to Get Your Medications These medications were sent to [email or web address] - [place], [place] - [address] [facility] [id number] naloxone 4 mg/0.1 mL nasal spray Information about where to get these medications is not yet available Ask your nurse or doctor about these medications acetaminophen 500 MG tablet insulin glargine-yfgn 100 UNIT/ML injection vial insulin lispro 100 UNIT/ML injection insulin lispro 100 UNIT/ML injection Jose pack methocarbamol 750 MG tablet oxyCODONE 10 MG immediate release tablet oxyCODONE 5 MG immediate release tablet polyethylene glycol 17 g packet senna-docusate 8.6-50 MG tablet Discharge Diagnosis Medical Problems Active and Resolved Hospital Problems Hospital Chronic obstructive pulmonary disease, unspecified (CMS/HCC) (Chronic) Overview Addendum 07/11/2025 9:23 AM by Gabriel Segovia - Alondras care. - Continue Albuterol and DuoNebs. -Pulm toilet ordered on 07/11 - On high flow O2 70%, will plan to wean as tolerated - Monitor respiratory status clinically HTN (hypertension), benign (Chronic) Overview Addendum 07/11/2025 9:29 AM by Gabriel Segovia -Pt still requiring pressure support on 07/11 -Resume home medications as appropriate. Depression (Chronic) Overview Addendum 07/11/2025 9:31 AM by Gabriel Segovia - Resume home Duloxetine. Morbid (severe) obesity due to excess calories (CMS/HCC) (Chronic) Overview Addendum 07/11/2025 9:31 AM by Gabriel Segovia - Complicates care. - Counseling when appropriate. Smoker (Chronic) Overview Signed 07/09/2025 3:05 PM by Lidia Ellis MD - Patient smokes 0.5-1ppd. - Smoking cessation when appropriate. Urge incontinence (Chronic) * (Principal) Necrotizing fasciitis (CMS/HCC) Overview Addendum 07/12/2025 1:54 PM by Gabriel Segovia - Presented to with right medial thigh NSTI. - Seen at OSH on 07/08 where she was hypotensive and tachycardic and they were concerned the wound was nec fas. Was given 3L of LR and continued to by hypotensive and was subsequently started on levophed. Initial I &D of right thigh, groin pubis and abdominal wall including skin, subcutaneous tissue and fascia. Transferred to for subsequent workup and management. - On arrival, patient hypotensive, requiring vasopressor support with leukocytosis, hyperglycemia and lactic acidosis. Required additional I&D - 07/10 pt had another I&D that showed viable tissue with no evidence of ongoing necrosis or purulence. - 07/11 wound washout in OR, wound vac was withheld due to erythema surrounding wound - Adjusting antibiotic treatment due to actinomyces cultures. - Dressing changes at bedside daily DM (diabetes mellitus) (CMS/HCC) (Chronic) Overview Addendum 07/09/2025 4:11 PM by Lidia Ellis MD - Patient hyperglycemic, up to 300s. - Insulin drip per protocol. Hidradenitis (Chronic) Absence seizure (CMS/HCC) (Chronic) Overview Addendum 07/11/2025 9:20 AM by Gabriel Segovia -Lamictal 100 mg daily Acute respiratory failure Overview Addendum 07/12/2025 1:55 PM by Gabriel Segovia - Patient presented to ED in septic shock due to RLE necrotizing fasciitis. - Was requiring ventalation support, was extubated postoperatively on 07/10 after I&D - Plan to continue to wean O2 as tolerated - CPAP at night for suspected sleep apnea - Lasix as needed for pulmonary edema to help with breathing - Improving, continue to monitor Septic shock (CMS/HCC) Overview Addendum 07/12/2025 1:55 PM by Gabriel Segovia - Septic shock secondary to necrotizing fascitis. - Required Levophed and Vasopressin for circulatory support. - Currently off pressor support, continue to monitor pressures. HLD (hyperlipidemia) (Chronic) Overview Addendum 07/11/2025 8:53 AM by Gabriel Segovia - Continuing home Crestor JOSEP (obstructive sleep apnea) Overview Signed 07/11/2025 9:28 AM by Gabriel Segovia -CPAP at night as needed Postoperative pain Hypoxia Overview Signed 07/16/2025 10:27 AM by Jason Andre MD On 6 L NC, smoker Post Discharge Instructions Medications: - You should take Tylenol every 6 hours for mild - moderate pain. - You should take methocarbamol 3 times per day for muscle spasms. - You have been prescribed pain medications to be taken as needed for severe pain. Do NOT take any home narcotics while taking pain medicine we have prescribed. - You should take the stool softener prescribed as long as you are taking narcotics. - You may resume your previous medications unless otherwise instructed. Nutrition: - You should low carbohydrate, diabetic-friendly diet. It is important to keep your blood sugar well controlled. High blood sugars can delay wound healing. Activity: - Activity as tolerated. Dressing: Currently has WTD dressing in place, sutures removed on rounds. [facility] can re- apply negative pressurewound therapy: Wound vac changes w/ black foam on Tuesday, Tuesday, Tuesday schedule. Give oral pain regimen 30 minutes prior to dressing changes. Potential Issues: - Call the office if you have a fever greater than 101 F - Call the office if you have severe abdominal discomfort, nausea and vomiting, or feeling unwell Follow Up: - [facility] with Lilliana Morfin APRN in 2 weeks for wound evaluation. - Referral to Endocrinology (Ordered) - PCP within one week after discharge for post hospitalization visit and chronic disease management. Questions or Concerns and Appointments For appointments please call our General Surgery Clinic at [phone]. If there are questions or concerns after discharge from the hospital, call Radha Ugalde, Nurse Coordinator between 7am-3pm at [phone]. If it is after hours, weekends, and holidays please call [phone] and ask for the resident fashion director party plan sales for Emergency General Surgery. Medication requests should be made between the hours of 9:00 AM to 3:00 PM Tuesday thru Tuesday. Please note that based upon recent changes to [place] law related to prescribing opioid pain medications, our providers will not provide refills on controlled medications after your hospital discharge following a major surgery or trauma. [place], [place] 201 [id number]. Outpatient Follow-Up No future appointments. Test Results Pending At Discharge Pertinent Physical Exam At Time of Discharge Physical Exam Vitals reviewed. Constitutional: General: She is not in acute distress. Appearance: Normal appearance. She is obese. She is not ill-appearing. HENT: Head: Normocephalic. Nose: Nose normal. Mouth/Throat: Mouth: Mucous membranes are moist. Eyes: Pupils: Pupils are equal, round, and reactive to light. Cardiovascular: Rate and Rhythm: Normal rate and regular rhythm. Pulmonary: Effort: Pulmonary effort is normal. No respiratory distress. Breath sounds: No stridor. Abdominal: General: Bowel sounds are normal. There is no distension. Palpations: Abdomen is soft. Tenderness: There is no abdominal tenderness. There is no guarding or rebound. Musculoskeletal: General: Normal range of motion. Cervical back: Neck supple. Skin: General: Skin is warm and dry. Comments: Wound on right medial thigh, mildly indurated w/ erythema. Neurological: General: No focal deficit present. Mental Status: She is alert and oriented to person, place, and time. Mental status is at baseline. Psychiatric: Mood and Affect: Mood normal. Behavior: Behavior normal. Thought Content: Thought content normal. Judgment: Judgment normal. Discharge Disposition/Condition Disposition: [facility] Condition: Stable (s/sx potential problems absent or manageable) I spent >30 minutes of patient care and instruction time in preparation for this discharge. Cosigned by Anne Franco MD at 07/19/2025 10:21 AM EDT * Progress Notes - Sherrill Villa APRN - 07/19/2025 8:50 AM EDT Endocrine - Diabetes Consult follow-up: Subjective: 24 hour update: -AM BG 152 on AM labs -on regular diet I have reviewed the patient's blood glucose levels, labs, vitals, and insulin doses administered inthe electronic medical record. Objective: BP 90/58 (BP Location: Right arm, Patient Position: Lying) Pulse 67 Temp 36.5 ??C (97.7 ??F) (Oral) Resp 18 Ht 1.778 m (5' 10 ) Wt 162 kg (356 lb 1.6 oz) BMI 51.10 kg/m?? Medications: Current Scheduled Medications[1] Current Continuous Medications[2] Current PRN Medications[3] Diet Dietary Orders (From admission, onward) Start Ordered 07/15/25 1200 Adult diet Diet texture: Regular; Carbohydrate restriction: Consistent Carb 2 (80 gm max/meal); Modified Calorie/Protein: High Calorie, High Protein; Other restriction(s): Gluten Free (Adult Diet Panel) Diet effective now References: IDDSI Diet Texture Guide Question Answer Comment Diet texture Regular Carbohydrate restriction: Consistent Carb 2 (80 gm max/meal) Modified Calorie/Protein: High Calorie, High Protein Other restriction(s): Gluten Free 07/15/25 1159 Lab Review: Results from last 7 days Lab Units 07/19/25 0428 SODIUM mmol/L 137 POTASSIUM mmol/L 4.3 CHLORIDE mmol/L 97 CO2 mmol/L 28 BUN mg/dL 14 CREATININE mg/dL 0.73 EGFR mL/min/1.73m*2 101.0 GLUCOSE mg/dL 153* CALCIUM mg/dL 9.0 Results from last 7 days Lab Units 07/19/25 0428 WBC 10*3/uL 18.39* HEMOGLOBIN g/dL 9.6* HEMATOCRIT % 30.7* PLATELETS 10*3/uL 627* Lab Results Component Value Date GLUCOSE 153 (H) 07/19/2025 GLUCOSE 163 (H) 07/18/2025 GLUCOSE 140 (H) 07/17/2025 PGLU 141 (H) 07/18/2025 PGLU 222 (H) 07/18/2025 PGLU 151 (H) 07/18/2025 PGLU 149 (H) 07/18/2025 PGLU 171 (H) 07/17/2025 PGLU 115 (H) 07/17/2025 PGLU 211 (H) 07/17/2025 PGLU 139 (H) 07/17/2025 I reviewed bg tracing in epic glucose timeline 07/19/25 ASSESSMENT Hospital Course: Cristina Brown is a 50 y.o. female with hx of type 2 DM, morbid obesity, hidradenitis supparativa, current smoker (1.5 ppd), hx of absent seizures, UTI, depression, anxiety, asthma, HLD, celiac disease who initially came to [facility] on 07/08/2025 as transfer with concern for sepsis from necrotizing fascitis of RLE. - 07/09: debridement of necrotizing fasciitis in right lower extremity, groin, pubis, and abdominalwall of skin, subcutaneous tissue, and muscle fascia - 07/10: repeat irrigation and debridement of RLE necrotizing fasciitis - 07/11: wound washout, no debridement necessary Daily Glucose and Insulin Total Daily Dose -admitted 07/08 -consulted 07/15 BG 132-234 TDD 13 units -07/16: 150-190 TDD 12 units -07/17: 115-211, TDD 10 units -07/18: 141-222, TDD 10 units -A1c: Lab Results Component Value Date HGBA1C 7.5 (H) 07/09/2025 -Diet: gluten free diet -Steroids: none Diagnoses #Sepsis from necrotizing fascitis #Celiac disease - chronic, stable without current active symptoms #Morbid Obesity BMI 57.13 -complicates all aspects of care -contributes to insulin resistance #diabetes mellitus - type 2 #hyperglycemia -A1C 7.5 -Home medications: Non insulin diabetes medications at home : Metformin 500mg BID w meals Failed/Discontinued meds:Ozempic 0.25 mg discontinued due to constipation and dyspepsia -see inpatient diabetes plan of care below PLAN: Primary team requesting recommendations and orders -After review of glucose trends and insulin delivery over the last 24 hours, titration of intensiveinsulin therapy was made to overall improve glycemic control and improve patient outcomes Intensive monitoring of patient's blood glucose levels required as patient has NSTI, and hyperglycemia could delay appropriate healing. In the hospital setting, the recommended range for glycemic control is 140-180 mg/dL for a majority of critically ill and non-critically ill patients. In some populations a lower target glucose of 110-150 mg/dL can be beneficial if achievable without hypoglycemia. In this case, given the diagnosis of NSTI, tighter glycemic control is recommended. Current Hospital Regimen: Insulin regimen: Basal: 8 units , glargine, nightly, adjusted back to 10 units to obtain tighter glycemic control Bolus: continue to assess need Correction: standard dosing 1:50>150 lispro at mealtimes; 1:50>250 lispro bedtime, 3am PRN -Continue intensive glucose monitoring due to increased risk for hyper/hypoglycemia secondary to insulin therapy -Will continue to assess blood glucose trends and adjust basal/bolus insulin therapy dose according -fsbg ac/hs when eating, q6h when NPO, on TF/TPN -correction insulin to be given for hyperglycemia, do not hold correction if patient does not eat. -hypoglycemia protocol in place -Please document the percentage of meals consumed in intake and output flowsheet. -please notify us when diet orders change or steroids added as this impacts our tx Discharge planning -Diabetes education: continue to assess need - if insulin is needed, patient would benefit from diabetes education -Follow-up plan: patient would like to establish care with endocrine provider in [place], [place]. --> Provided patient with address and number of clinic. [[facility] Endocrinology Clinic in the [facility] Physician Building]. -Tentative discharge recommendations: Likely resume home metformin Need for insulin therapy - TBD - if insulin is needed, patient would benefit from diabetes education Check glucose before meals and at bedtime, check as needed for symptoms of hypoglycemia and hyperglycemia. May substitute for therapeutic equivalent per insurance and retail PharmD approval -Supplies/scripts needed: Ensure patient has working glucose meter and supplies DM/Endo team will continue to follow. Please notify us as patient nears discharge for final recommendations Please contact Sherrill Villa APRN [place] Adult Inpatient Diabetes team via secure chat orpage us at [phone] during 7a-7p, Tuesday-Tuesday. For after hours please contact the on-call Endocrine Fellow. Thank you for the opportunity to participate in this patient's care. [1] acetaminophen, 1,000 mg, Oral, q6h MARIBELL busPIRone, 15 mg, Oral, BID DULoxetine, 60 mg, Oral, Daily enoxaparin, 40 mg, Subcutaneous, BID insulin glargine-yfgn, 8 Units, Subcutaneous, Nightly insulin lispro, 0-5 Units, Subcutaneous, TID with meals insulin lispro, 0-3 Units, Subcutaneous, Twice at night Jose, 1 packet, Oral, BID lamoTRIgine, 100 mg, Oral, Nightly methocarbamol, 750 mg, Oral, TID metoprolol succinate XL, 100 mg, Oral, Nightly oxyCODONE, 5 mg, Oral, Q MWF polyethylene glycol, 17 g, Oral, Daily rosuvastatin, 20 mg, Oral, Nightly senna-docusate, 1 tablet, Oral, BID sodium chloride, 10 mL, Intravenous, q12h [2] [3] PRN medications: busPIRone, [DISCONTINUED] glucose OR dextrose 10 % OR dextrose 10 % OR glucagon (human recombinant), ipratropium-albuterol, ondansetron ODT OR [DISCONTINUED] ondansetron OR [DISCONTINUED] ondansetron, oxyCODONE OR oxyCODONE * Assessment & Plan Note - Jason Andre MD - 07/19/2025 7:08 AM EDT Associated Problem(s): Necrotizing fasciitis (CMS/HCC) - 07/09: debridement of necrotizing fasciitis in right lower extremity, groin, pubis, and abdominalwall of skin, subcutaneous tissue, and muscle fascia - 07/10: repeat irrigation and debridement of RLE necrotizing fasciitis - 07/11: wound washout, no debridement necessary Admitted to ICU for postoperative monitoring. - 07/13: Downgraded to floor On IV Linezolid Daily dressing changes, PRN Dilaudid available. Possibly d/c Linezolid pending wound eval PT/OT eval pending * Assessment & Plan Note - Jason Andre MD - 07/19/2025 7:08 AM EDT Associated Problem(s): DM (diabetes mellitus) - Patient presenting with significant hyperglycemia, requiring an insulin drip on admission. - Currently off insulin drip Pharmacy to dose insulin Glargine 10U, Lispro correction and nighttime dosing. Carbohydrate restricted diet * Assessment & Plan Note - Jason Andre MD - 07/19/2025 7:08 AM EDT Associated Problem(s): Hidradenitis Follows with outpatient provider * Assessment & Plan Note - Jason Andre MD - 07/19/2025 7:08 AM EDT Associated Problem(s): Smoker - Patient smokes 0.5-1ppd. - Smoking cessation when appropriate. * Assessment & Plan Note - Jason Andre MD - 07/19/2025 7:08 AM EDT Associated Problem(s): Chronic obstructive pulmonary disease, unspecified Complicates care. Continue Albuterol and DuoNebs. 3L Nasal cannula, continue to wean as tolerated Monitor respiratory status clinically * Assessment & Plan Note - Jason Andre MD - 07/19/2025 7:08 AM EDT Associated Problem(s): HTN (hypertension), benign Restart home meds as appropriate * Assessment & Plan Note - Jason Andre MD - 07/19/2025 7:08 AM EDT Associated Problem(s): Depression Home Duloxetine * Assessment & Plan Note - Jason Andre MD - 07/19/2025 7:08 AM EDT Associated Problem(s): Morbid (severe) obesity due to excess calories (CMS/[facility]) Complicates all aspect of care * Assessment & Plan Note - Jason Andre MD - 07/19/2025 7:08 AM EDT Associated Problem(s): Urge incontinence Patient currently with a montalvo catheter. Remove when able. * Assessment & Plan Note - Jason Andre MD - 07/19/2025 7:08 AM EDT Associated Problem(s): Absence seizure (CMS/HCC) - On Lamictal 50mg BID at home. Restarted 07/09. * Assessment & Plan Note - Jason Andre MD - 07/19/2025 7:08 AM EDT Associated Problem(s): Acute respiratory failure CPAP at night for suspected sleep apnea Lasix PRN for pulmonary edema and to help with breathing Improving, will continue to monitor * Assessment & Plan Note - Jason Andre MD - 07/19/2025 7:08 AM EDT Associated Problem(s): Septic shock (CMS/HCC) Septic shock secondary to necrotizing fascitis. Required Levophed and Vasopressin for circulatory support. Currently off pressor support, continue to monitor pressures. * Assessment & Plan Note - Jason Andre MD - 07/19/2025 7:08 AM EDT Associated Problem(s): HLD (hyperlipidemia) Home Rosuvastatin * Assessment & Plan Note - Jason Andre MD - 07/19/2025 7:08 AM EDT Associated Problem(s): JOSEP (obstructive sleep apnea) CPAP at night * Assessment & Plan Note - Jason Andre MD - 07/19/2025 7:08 AM EDT Associated Problem(s): Postoperative pain MMPC * Progress Notes - Jason Andre MD - 07/19/2025 7:04 AM EDT 07/19/25 Cristina Brown HPI Cristina Brown is a 50F with pMHx of absence seizure, hidradenitis suppurative, hypertension, T2DM,obesity, tobacco use disorder, and newly diagnosed JOSEP who presented to [facility] with leukocytosis and exam findings consistent with necrotizing fasciitis. 07/09: debridement of necrotizing fasciitis in right lower extremity, groin, pubis, and abdominal wall of skin, subcutaneous tissue, and muscle fascia 07/10: repeat irrigation and debridement of RLE necrotizing fasciitis 07/11: wound washout, no debridement necessary Interval: GCS 15. Anxious. HDS on room air. Mobilizing with PT/OT. Tolerating PO diet. Last BM: .Reporting new wound. Afebrile. No DVT visualized on Lower Extremity Duplexes. Overnight: WV taken down due to losing its seal and alarming. WTD dressing placed. IV dilaudid given. No new complaints this AM. Still worries about inner thigh wound. States she feels very safe here. Tender on dressing change. Edited by: Jason Andre MD at 07/19/2025 0704 Relevant review of systems was obtained as able and is negative unless stated above in HPI. Vital signs: Vitals: 07/19/25 0419 BP: 114/76 Pulse: 93 Resp: Temp: 37.1 ??C (98.7 ??F) SpO2: 91% Physical Exam Constitutional: Appearance: Normal appearance. Obese. HENT: Head: Normocephalic. Right Ear: External ear normal. Left Ear: External ear normal. Eyes: Extraocular Movements: Extraocular movements intact. Conjunctiva/sclera: Conjunctivae normal. Pulmonary: Effort: Pulmonary effort is normal. Abdominal: General: Abdomen is flat. Palpations: Abdomen is soft. WTD dressings over operative wound, improving. Dressings changed today on rounds. Skin: General: Skin is warm and dry. Findings: Dressings in place. Wound on R medial thigh, mildly indurated. Painful. Improved today. Neurological: Mental Status: She is alert. Psychiatric: Mood and Affect: Mood normal. Behavior: Behavior normal. Intake/Output Summary (Last 24 hours) at 07/19/2025 0707 Last data filed at 07/19/2025 0200 Gross per 24 hour Intake 960 ml Output 2000 ml Net -1040 ml Lines/Drains/Tubes: Patient Lines/Drains/Airways Status Active Airway None Output by Drain (mL) 07/17/25 07 - 07/17/25 18507/17/25 1900 - 07/18/25 0659 07/18/25 07 - 07/18/25 1859 07/18/25 1900 - 07/19/25 0659 07/19/25 0700 - 07/19/25 0707 Patient has no LDAs of requested type attached. Labs in last 18 hours: CBC WBC 18.39 (H) Hb 9.6 (L) Plt 627 (H) Hct 30.7 (L) ANC ?? INR ??, PTT ??, Anti-Xa ?? MCV 88 BMP Na 137 Cl 97 BUN 14 Glu 153 (H) K 4.3 Co2 28 Cr 0.73 Ca 9.0 iCa ?? Mg 1.8 (L), Phos 3.6 Lactate ?? LFT AST ?? AlkPhos ?? T Prot ?? ALK ?? Bili ?? Alb ?? D.Bili ?? Lab Trends: H/H Results from last 7 days Lab Units 07/19/2542707/18/25 0607/17/25 0520 HEMOGLOBIN g/dL 9.6* 9.1* 9.2* HEMATOCRIT % 30.7* 28.8* 29.4* INR Cr Results from last 7 days Lab Units 07/19/2542707/18/25 0603 07/17/25 0520 CREATININE mg/dL 0.73 0.65 0.59* Medications reviewed. Vital signs reviewed. Labs reviewed. Radiography reviewed. Assessment and Plan: Assessment & Plan Necrotizing fasciitis (CMS/HCC) Present on Admission: Yes - 07/09: debridement of necrotizing fasciitis in right lower extremity, groin, pubis, and abdominalwall of skin, subcutaneous tissue, and muscle fascia - 07/10: repeat irrigation and debridement of RLE necrotizing fasciitis - 07/11: wound washout, no debridement necessary Admitted to ICU for postoperative monitoring. - 07/13: Downgraded to floor On IV Linezolid Daily dressing changes, PRN Dilaudid available. Possibly d/c Linezolid pending wound eval PT/OT eval pending DM (diabetes mellitus) (CMS/HCC) Present on Admission: Yes - Patient presenting with significant hyperglycemia, requiring an insulin drip on admission. - Currently off insulin drip Pharmacy to dose insulin Glargine 10U, Lispro correction and nighttime dosing. Carbohydrate restricted diet Hidradenitis Present on Admission: Yes Follows with outpatient provider Smoker Present on Admission: Yes - Patient smokes 0.5-1ppd. - Smoking cessation when appropriate. Chronic obstructive pulmonary disease, unspecified (CMS/HCC) Present on Admission: Yes Complicates care. Continue Albuterol and DuoNebs. 3L Nasal cannula, continue to wean as tolerated Monitor respiratory status clinically HTN (hypertension), benign Present on Admission: Yes Restart home meds as appropriate Depression Present on Admission: Yes Home Duloxetine Morbid (severe) obesity due to excess calories (CMS/HCC) Present on Admission: Yes Complicates all aspect of care Urge incontinence Present on Admission: Yes Patient currently with a montalvo catheter. Remove when able. Absence seizure (CMS/HCC) Present on Admission: Yes - On Lamictal 50mg BID at home. Restarted 07/09. Acute respiratory failure Present on Admission: Yes CPAP at night for suspected sleep apnea Lasix PRN for pulmonary edema and to help with breathing Improving, will continue to monitor Septic shock (CMS/HCC) Present on Admission: Yes Septic shock secondary to necrotizing fascitis. Required Levophed and Vasopressin for circulatory support. Currently off pressor support, continue to monitor pressures. HLD (hyperlipidemia) Present on Admission: Yes Home Rosuvastatin JOSEP (obstructive sleep apnea) Present on Admission: No CPAP at night Postoperative pain Present on Admission: Unknown [facility] Hypoxia Present on Admission: Unknown Non-Hospital Problems Carpal tunnel syndrome Dehydration Hidradenitis suppurativa History of hysterectomy Marijuana smoker Pharyngitis Type 2 diabetes mellitus Overview Signed 08/31/2023 9:36 AM by Janell Bueno Last Assessment & Plan: Condition: stable Discussed glucose control targets. Educated on: Lifestyle changes Follow up in: three months with PCP Vitamin D deficiency Overview Signed 08/31/2023 9:36 AM by Janell Bueno Last Assessment & Plan: Condition: stable Follow up in: three months Wound dehiscence Stress incontinence Nocturia Plan: - WC managing Wound Vac - No IV pain meds at next wound change - leg wound improving - IS, Wean Supplemental O2 as able - CPAP at night for JOSEP - Linezolid and Cefepime w/ U/s for RLE wound - possible dc today Dispo: Acute rehab, MR Edited by: Jason Andre MD at 07/19/2025 0707 Jason Andre MD Cosigned by Anne Franco MD at 07/25/2025 11:37 PM EDT Associated attestation - Anne Franco MD - 07/25/2025 11:37 PM EDT I saw and evaluated the patient with the resident/fellow. I discussed the case with the resident/fellow and agree with the findings and plan as documented. Complex wound care, debility, are not routine care * Clinician Note - Jatin Miller MD - 07/19/2025 3:18 AM EDT Images from the original note were not included. Emergency General Surgery Interim Summary Provider called to beside by nursing regarding wound dehiscence. Patient states that she walked outside to the corner for fresh air, states that she felt a popping and burning sensation in the lower extremity. Upon arrival to the patient room, the WV began to alarm that there was a leak detected. The WV itself has lost a majority of its seal, including a separation of the the brett pad. After discussion with chief fashion director party plan sales, decision was made to remove the WV and place a [id number] with Kerlix, Polymem, ABD pads, and skin tape. Please see daily progress notes for additional plans. - Jatin Miller MD Plastic and Reconstructive Surgery, PGY-1 * Care Plan - Inessa Almazan RN - 07/18/2025 11:24 PM EDT Problem: Adult Inpatient Plan of Care Goal: Plan of Care Review 07/18/20252319 by Inessa Almazan RN Outcome: Ongoing, Progressing Flowsheets Taken 07/18/20252319 by Inessa Almazan RN Progress: improving Taken 07/18/2025 1633 by Josi Ann RN Plan of Care Reviewed With: patient 07/18/20252318 by Inessa Almazan RN Outcome: Ongoing, Progressing Flowsheets Taken 07/18/20252318 by Inessa Almazan RN Progress: improving Taken 07/18/2025 1633 by Josi Ann RN Plan of Care Reviewed With: patient Goal: Patient-Specific Goal (Individualized) 07/18/20252319 by Inessa Almazan RN Outcome: Ongoing, Progressing Flowsheets (Taken 07/18/20251999) Patient/Family-Specific Goals (Include Timeframe): Patient will state adequate pain control for duration of shift. Individualized Care Needs: pain management Anxieties, Fears or Concerns: going to rehab 07/18/20252318 by Inessa Almazan RN Outcome: Ongoing, Progressing Flowsheets (Taken 07/18/20251999) Individualized Care Needs: pain management Anxieties, Fears or Concerns: going to rehab Goal: Absence of Hospital-Acquired Illness or Injury Outcome: Ongoing, Progressing Intervention: Identify and Manage Fall Risk Flowsheets (Taken 07/18/20251999) Safety Promotion/Fall Prevention: activity supervised assistive device/personal items within reach clutter-free environment maintained fall prevention program maintained lighting adjusted mobility aid in reach nonskid shoes/slippers when out of bed room organization consistent safety round/check completed toileting scheduled Intervention: Prevent Skin Injury Flowsheets Taken 07/18/20252319 Skin Protection: incontinence pads utilized protective footwear used transparent dressing maintained Taken 07/18/20251999 Body Position: weight shifting Intervention: Prevent and Manage VTE (Venous Thromboembolism) Risk Flowsheets (Taken 07/18/20251999) VTE Prevention/Management: bilateral lower extremity SCDs (sequential compression devices) off medication Goal: Optimal Comfort and Wellbeing Outcome: Ongoing, Progressing Intervention: Monitor Pain and Promote Comfort Flowsheets (Taken 07/18/20252319) Pain Management Interventions: medication (see MAR) Intervention: Provide Person-Centered Care Flowsheets (Taken 07/18/20252319) Trust Relationship/Rapport: care explained choices provided emotional support provided empathic listening provided questions answered questions encouraged reassurance provided thoughts/feelings acknowledged Problem: Skin Injury Risk Increased Goal: Skin Health and Integrity Outcome: Ongoing, Progressing Intervention: Optimize Skin Protection Flowsheets Taken 07/18/20252319 Pressure Reduction Techniques: pressure points protected Pressure Reduction Devices: positioning supports utilized Skin Protection: incontinence pads utilized protective footwear used transparent dressing maintained Taken 07/18/20251999 Activity Management: activity adjusted per tolerance activity encouraged Head of Bed (HOB) Positioning: HOB elevated Intervention: Promote and Optimize Oral Intake Flowsheets (Taken 07/18/20252319) Oral Nutrition Promotion: calorie-dense foods provided rest periods promoted Nutrition Interventions: frequent small meals provided supplemental drinks provided Problem: Infection Goal: Absence of Infection Signs and Symptoms Outcome: Ongoing, Progressing Intervention: Prevent or Manage Infection Flowsheets Taken 07/18/20252319 Infection Management: aseptic technique maintained Fever Reduction/Comfort Measures: lightweight bedding lightweight clothing Taken 07/18/20251999 Isolation Precautions: protective precautions maintained Problem: Fall Injury Risk Goal: Absence of Fall and Fall-Related Injury Outcome: Ongoing, Progressing Intervention: Identify and Manage Contributors Flowsheets (Taken 07/18/20252319) Medication Review/Management: medications reviewed Self-Care Promotion: independence encouraged Intervention: Promote Injury-Free Environment Flowsheets (Taken 07/18/20251999) Safety Promotion/Fall Prevention: activity supervised assistive device/personal items within reach clutter-free environment maintained fall prevention program maintained lighting adjusted mobility aid in reach nonskid shoes/slippers when out of bed room organization consistent safety round/check completed toileting scheduled Problem: Wound Goal: Optimal Coping Outcome: Ongoing, Progressing Goal: Absence of Infection Signs and Symptoms Outcome: Ongoing, Progressing Intervention: Prevent or Manage Infection Flowsheets Taken 07/18/2025 2320 Infection Management: aseptic technique maintained Fever Reduction/Comfort Measures: lightweight bedding lightweight clothing Taken 07/18/20251999 Isolation Precautions: protective precautions maintained Goal: Improved Oral Intake Outcome: Ongoing, Progressing Intervention: Promote and Optimize Oral Intake Flowsheets (Taken 07/18/2025 2320) Oral Nutrition Promotion: calorie-dense foods provided rest periods promoted Nutrition Interventions: frequent small meals provided supplemental drinks provided Goal: Skin Health and Integrity Outcome: Ongoing, Progressing Goal: Optimal Wound Healing Outcome: Ongoing, Progressing * Care Plan - Josi Ann RN - 07/18/2025 4:34 PM EDT Problem: Adult Inpatient Plan of Care Goal: Plan of Care Review Outcome: Ongoing, Progressing Flowsheets (Taken 07/18/2025 1633) Progress: improving Plan of Care Reviewed With: patient Goal: Patient-Specific Goal (Individualized) Outcome: Ongoing, Progressing Flowsheets (Taken 07/18/2025 1600) Patient/Family-Specific Goals (Include Timeframe): patient will remain free of fall or injury this shift Individualized Care Needs: safety Anxieties, Fears or Concerns: denies Goal: Absence of Hospital-Acquired Illness or Injury Outcome: Ongoing, Progressing Intervention: Identify and Manage Fall Risk Flowsheets (Taken 07/18/2025 1600 by Monique Jacques) Safety Promotion/Fall Prevention: activity supervised assistive device/personal items within reach clutter-free environment maintained fall prevention program maintained lighting adjusted nonskid shoes/slippers when out of bed mobility aid in reach room organization consistent safety round/check completed Goal: Optimal Comfort and Wellbeing Outcome: Ongoing, Progressing Intervention: Provide Person-Centered Care Flowsheets (Taken 07/18/2025 1600) Trust Relationship/Rapport: care explained choices provided emotional support provided empathic listening provided questions answered questions encouraged reassurance provided thoughts/feelings acknowledged Problem: Skin Injury Risk Increased Goal: Skin Health and Integrity Outcome: Ongoing, Progressing Intervention: Promote and Optimize Oral Intake Flowsheets (Taken 07/18/20251599) Oral Nutrition Promotion: calorie-dense foods provided rest periods promoted Nutrition Interventions: frequent small meals provided supplemental drinks provided Problem: Infection Goal: Absence of Infection Signs and Symptoms Outcome: Ongoing, Progressing Intervention: Prevent or Manage Infection Flowsheets (Taken 07/18/20251599) Infection Management: aseptic technique maintained Fever Reduction/Comfort Measures: lightweight bedding Isolation Precautions: precautions maintained Problem: Fall Injury Risk Goal: Absence of Fall and Fall-Related Injury Outcome: Ongoing, Progressing Problem: Self-Care Deficit Goal: Improved Ability to Complete Activities of Daily Living Outcome: Ongoing, Progressing Problem: Wound Goal: Optimal Coping Outcome: Ongoing, Progressing Intervention: Support Patient and Family Response Flowsheets (Taken 07/18/20251599) Supportive Measures: active listening utilized self-care encouraged positive reinforcement provided Family/Support System Care: support provided Goal: Optimal Functional Ability Outcome: Ongoing, Progressing Intervention: Optimize Functional Ability Flowsheets (Taken 07/18/20251599 by Monique Jacques) Activity Management: activity adjusted per tolerance Activity Assistance Provided: assistance, stand-by Assistive Device Utilized: front wheel walker Goal: Absence of Infection Signs and Symptoms Outcome: Ongoing, Progressing Intervention: Prevent or Manage Infection Flowsheets (Taken 07/18/20251599) Infection Management: aseptic technique maintained Fever Reduction/Comfort Measures: lightweight bedding Isolation Precautions: precautions maintained Goal: Improved Oral Intake Outcome: Ongoing, Progressing Intervention: Promote and Optimize Oral Intake Flowsheets (Taken 07/18/20251599) Nutrition Support Management: weight trending reviewed Oral Nutrition Promotion: calorie-dense foods provided rest periods promoted Nutrition Interventions: frequent small meals provided supplemental drinks provided Goal: Optimal Pain Control and Function Outcome: Ongoing, Progressing Intervention: Prevent or Manage Pain Flowsheets (Taken 07/18/20251599) Pain Management Interventions: medication (see MAR) care clustered emotional support Sleep/Rest Enhancement: awakenings minimized consistent schedule promoted Goal: Skin Health and Integrity Outcome: Ongoing, Progressing Intervention: Optimize Skin Protection Flowsheets Taken 07/18/20251599 by Monique Jacques Activity Management: activity adjusted per tolerance Head of Bed (HOB) Positioning: HOB elevated Taken 07/18/20251599 by Josi Ann, RN Pressure Reduction Techniques: pressure points protected Pressure Reduction Devices: positioning supports utilized Taken 07/14/2025 1800 by Josi Ann, RN Skin Protection: frequent weight shift encouraged weight shift assistance provided incontinence pads utilized Goal: Optimal Wound Healing Outcome: Ongoing, Progressing Intervention: Promote Wound Healing Flowsheets (Taken 07/18/2025 1600) Sleep/Rest Enhancement: awakenings minimized consistent schedule promoted * Progress Notes - Annie Littlejohn - 07/18/2025 2:18 PM EDT Case Management Adult Progress Note Cristina Brown 50 y.o. female CSN: [id number] Admission: 07/08/2025 5:58 PM Primary Problem: Necrotizing fasciitis (CMS/HCC) Anticipated Discharge Date: 07/19/25 Has Discharge Plans Changed? Yes [facility] Medicare Second Notice: Housing Circumstances: Low Income ( 101-300% Federal Poverty Guideline) Housing Circumstances Action Taken: Medically Ready for Discharge: Anticipated Tomorrow Additional Comments Per the MD pt is medically ready to d/c after she can tolerate her wv being changed without IV painmedication. SW talked with the pt and she is agreeable to go to [facility] however she still has a lot of questions and concerns that the MD is going to speak with the pt about to ease some of her concerns. The pt also has an area that is looking more concerning to the pt based on her prior skin issues/infections and she wants peace of mind about that prior to d/c. CARRIE has communicated these thingsto the MD team. Pt will transfer to [facility] via shuttle on 07/19 if all needs are addressed. Annie Littlejohn * Progress Notes - Sherrill Villa APRN - 07/18/2025 8:46 AM EDT Endocrine - Diabetes Consult follow-up: Subjective: 24 hour update: -AM BG 149 -on regular diet -reports low PO intake -patient discussed her struggles with hospital stay and mental health -reports wound care has been painful I have reviewed the patient's blood glucose levels, labs, vitals, and insulin doses administered inthe electronic medical record. Review of Systems Constitutional: Positive for activity change and appetite change. HENT: Negative for trouble swallowing. Respiratory: Negative for shortness of breath. Cardiovascular: Negative for chest pain. Gastrointestinal: Negative for abdominal pain. Endocrine: See 24 hour update Skin: Positive for wound (groin; right upper leg). Psychiatric/Behavioral: Negative for agitation, confusion and suicidal ideas. The patient is nervous/anxious. Depression Objective: Physical Exam Constitutional: General: She is not in acute distress. Appearance: She is obese. She is ill-appearing. HENT: Head: Normocephalic and atraumatic. Mouth/Throat: Mouth: Mucous membranes are moist. Eyes: Pupils: Pupils are equal, round, and reactive to light. Pulmonary: Effort: Pulmonary effort is normal. No respiratory distress. Comments: Nasal cannula Abdominal: General: There is no distension. Tenderness: There is no abdominal tenderness. Musculoskeletal: General: No swelling. Normal range of motion. Cervical back: Normal range of motion. Skin: General: Skin is warm and dry. Findings: Lesion (right upper leg, groin - wound vac in place) present. Neurological: Mental Status: She is alert and oriented to person, place, and time. Mental status is at baseline. Psychiatric: Mood and Affect: Mood normal. Thought Content: Thought content normal. Judgment: Judgment normal. BP 96/64 (BP Location: Right arm, Patient Position: Lying) Pulse 78 Temp 36.7 ??C (98 ??F) (Oral) Resp 16 Ht 1.778 m (5' 10 ) Wt 162 kg (356 lb 1.6 oz) BMI 51.10 kg/m?? Medications: Current Scheduled Medications[1] Current Continuous Medications[2] Current PRN Medications[3] Diet Dietary Orders (From admission, onward) Start Ordered 07/15/25 1200 Adult diet Diet texture: Regular; Carbohydrate restriction: Consistent Carb 2 (80 gm max/meal); Modified Calorie/Protein: High Calorie, High Protein; Other restriction(s): Gluten Free (Adult Diet Panel) Diet effective now References: IDDSI Diet Texture Guide Question Answer Comment Diet texture Regular Carbohydrate restriction: Consistent Carb 2 (80 gm max/meal) Modified Calorie/Protein: High Calorie, High Protein Other restriction(s): Gluten Free 07/15/25 1159 Lab Review: Results from last 7 days Lab Units 07/18/25 0603 SODIUM mmol/L 138 POTASSIUM mmol/L 3.8 CHLORIDE mmol/L 99 CO2 mmol/L 29 BUN mg/dL 11 CREATININE mg/dL 0.65 EGFR mL/min/1.73m*2 108.1 GLUCOSE mg/dL 163* CALCIUM mg/dL 8.5* Results from last 7 days Lab Units 07/18/25 0603 WBC 10*3/uL 16.76* HEMOGLOBIN g/dL 9.1* HEMATOCRIT % 28.8* PLATELETS 10*3/uL 523* Lab Results Component Value Date GLUCOSE 163 (H) 07/18/2025 GLUCOSE 140 (H) 07/17/2025 GLUCOSE 149 (H) 07/16/2025 PGLU 149 (H) 07/18/2025 PGLU 171 (H) 07/17/2025 PGLU 115 (H) 07/17/2025 PGLU 211 (H) 07/17/2025 PGLU 139 (H) 07/17/2025 PGLU 162 (H) 07/16/2025 PGLU 190 (H) 07/16/2025 PGLU 150 (H) 07/16/2025 I reviewed bg tracing in epic glucose timeline 07/18/25 ASSESSMENT Hospital Course: Cristina Brown is a 50 y.o. female with hx of type 2 DM, morbid obesity, hidradenitis supparativa, current smoker (1.5 ppd), hx of absent seizures, UTI, depression, anxiety, asthma, HLD, celiac disease who initially came to [facility] on 07/08/2025 as transfer with concern for sepsis from necrotizing fascitis of RLE. - 07/09: debridement of necrotizing fasciitis in right lower extremity, groin, pubis, and abdominalwall of skin, subcutaneous tissue, and muscle fascia - 07/10: repeat irrigation and debridement of RLE necrotizing fasciitis - 07/11: wound washout, no debridement necessary Daily Glucose and Insulin Total Daily Dose -admitted 07/08 -consulted 07/15 BG 132-234 TDD 13 units -A1c: Lab Results Component Value Date HGBA1C 7.5 (H) 07/09/2025 -Diet: gluten free diet -Steroids: none Diagnoses #Sepsis from necrotizing fascitis #Celiac disease - chronic, stable without current active symptoms #Morbid Obesity BMI 57.13 -complicates all aspects of care -contributes to insulin resistance #diabetes mellitus - type 2 #hyperglycemia -A1C 7.5 -Home medications: Non insulin diabetes medications at home : Metformin 500mg BID w meals Failed/Discontinued meds:Ozempic 0.25 mg discontinued due to constipation and dyspepsia -see inpatient diabetes plan of care below PLAN: Primary team requesting recommendations and orders -After review of glucose trends and insulin delivery over the last 24 hours, no changes were made as overall good glycemic control on current insulin regimen Current Hospital Regimen: Insulin regimen: Basal: 8 units , glargine, nightly Bolus: continue to assess need Correction: standard dosing 1:50>150 lispro at mealtimes; 1:50>250 lispro bedtime, 3am PRN -Continue intensive glucose monitoring due to increased risk for hyper/hypoglycemia secondary to insulin therapy -Will continue to assess blood glucose trends and adjust basal/bolus insulin therapy dose according -fsbg ac/hs when eating, q6h when NPO, on TF/TPN -correction insulin to be given for hyperglycemia, do not hold correction if patient does not eat. -hypoglycemia protocol in place -Please document the percentage of meals consumed in intake and output flowsheet. -please notify us when diet orders change or steroids added as this impacts our tx Discharge planning -Diabetes education: continue to assess need - if insulin is needed, patient would benefit from diabetes education -Follow-up plan: patient would like to establish care with endocrine provider in [place], [place]. --> Provided patient with address and number of clinic. [[facility] in the [facility]]. -Tentative discharge recommendations: Likely resume home metformin Need for insulin therapy - TBD - if insulin is needed, patient would benefit from diabetes education Check glucose before meals and at bedtime, check as needed for symptoms of hypoglycemia and hyperglycemia. May substitute for therapeutic equivalent per insurance and retail PharmD approval -Supplies/scripts needed: Ensure patient has working glucose meter and supplies DM/Endo team will continue to follow. Please notify us as patient nears discharge for final recommendations Please contact Sherrill Villa APRN [place] Adult Inpatient Diabetes team via secure chat orpage us at [phone] during 7a-7p, Tuesday-Tuesday. For after hours please contact the on-call Endocrine Fellow. Thank you for the opportunity to participate in this patient's care. Time Spent: I personally spent a total of 30 minutes on this encounter. This time includes face to face with patient, counseling and discussion and/or coordination of care. [1] acetaminophen, 1,000 mg, Oral, q6h MARIBELL busPIRone, 15 mg, Oral, BID DULoxetine, 60 mg, Oral, Daily enoxaparin, 40 mg, Subcutaneous, BID HYDROmorphone, 1 mg, Oral, Once insulin glargine-yfgn, 8 Units, Subcutaneous, Nightly insulin lispro, 0-5 Units, Subcutaneous, TID with meals insulin lispro, 0-3 Units, Subcutaneous, Twice at night ipratropium-albuterol, 3 mL, Nebulization, q6h RT Jose, 1 packet, Oral, BID lamoTRIgine, 100 mg, Oral, Nightly methocarbamol, 750 mg, Oral, TID metoprolol succinate XL, 100 mg, Oral, Nightly polyethylene glycol, 17 g, Oral, Daily rosuvastatin, 20 mg, Oral, Nightly senna-docusate, 1 tablet, Oral, BID sodium chloride, 10 mL, Intravenous, q12h [2] [3] PRN medications: busPIRone, [DISCONTINUED] glucose OR dextrose 10 % OR dextrose 10 % OR glucagon (human recombinant), ondansetron ODT OR ondansetron OR [DISCONTINUED] ondansetron, oxyCODONE OR oxyCODONE * Assessment & Plan Note - Jason Andre MD - 07/18/2025 7:05 AM EDT Associated Problem(s): Necrotizing fasciitis (CMS/HCC) - 07/09: debridement of necrotizing fasciitis in right lower extremity, groin, pubis, and abdominalwall of skin, subcutaneous tissue, and muscle fascia - 07/10: repeat irrigation and debridement of RLE necrotizing fasciitis - 07/11: wound washout, no debridement necessary Admitted to ICU for postoperative monitoring. - 07/13: Downgraded to floor On IV Linezolid Daily dressing changes, PRN Dilaudid available. Possibly d/c Linezolid pending wound eval PT/OT eval pending * Assessment & Plan Note - Jason Andre MD - 07/18/2025 7:05 AM EDT Associated Problem(s): DM (diabetes mellitus) - Patient presenting with significant hyperglycemia, requiring an insulin drip on admission. - Currently off insulin drip Pharmacy to dose insulin Glargine 10U, Lispro correction and nighttime dosing. Carbohydrate restricted diet * Assessment & Plan Note - Jason Andre MD - 07/18/2025 7:05 AM EDT Associated Problem(s): Hidradenitis Follows with outpatient provider * Assessment & Plan Note - Jason Andre MD - 07/18/2025 7:05 AM EDT Associated Problem(s): Smoker - Patient smokes 0.5-1ppd. - Smoking cessation when appropriate. * Assessment & Plan Note - Jason Andre MD - 07/18/2025 7:05 AM EDT Associated Problem(s): Chronic obstructive pulmonary disease, unspecified Complicates care. Continue Albuterol and DuoNebs. 3L Nasal cannula, continue to wean as tolerated Monitor respiratory status clinically * Assessment & Plan Note - Jason Andre MD - 07/18/2025 7:05 AM EDT Associated Problem(s): HTN (hypertension), benign Restart home meds as appropriate * Assessment & Plan Note - Jason Andre MD - 07/18/2025 7:05 AM EDT Associated Problem(s): Depression Home Duloxetine * Assessment & Plan Note - Jason Andre MD - 07/18/2025 7:05 AM EDT Associated Problem(s): Morbid (severe) obesity due to excess calories (CMS/HCC) Complicates all aspect of care * Assessment & Plan Note - Jason Andre MD - 07/18/2025 7:05 AM EDT Associated Problem(s): Urge incontinence Patient currently with a montalvo catheter. Remove when able. * Assessment & Plan Note - Jason Andre MD - 07/18/2025 7:05 AM EDT Associated Problem(s): Absence seizure (CMS/HCC) - On Lamictal 50mg BID at home. Restarted 07/09. * Assessment & Plan Note - Jason Andre MD - 07/18/2025 7:05 AM EDT Associated Problem(s): Acute respiratory failure CPAP at night for suspected sleep apnea Lasix PRN for pulmonary edema and to help with breathing Improving, will continue to monitor * Assessment & Plan Note - Jason Andre MD - 07/18/2025 7:05 AM EDT Associated Problem(s): Septic shock (CMS/HCC) Septic shock secondary to necrotizing fascitis. Required Levophed and Vasopressin for circulatory support. Currently off pressor support, continue to monitor pressures. * Assessment & Plan Note - Jason Andre MD - 07/18/2025 7:05 AM EDT Associated Problem(s): HLD (hyperlipidemia) Home Rosuvastatin * Assessment & Plan Note - Jason Andre MD - 07/18/2025 7:05 AM EDT Associated Problem(s): JOSEP (obstructive sleep apnea) CPAP at night * Assessment & Plan Note - Jason Andre MD - 07/18/2025 7:05 AM EDT Associated Problem(s): Postoperative pain MMPC * Progress Notes - Jason Andre MD - 07/18/2025 7:04 AM EDT 07/18/25 Cristina Brown HPI 50-year-old female with past medical history of absence seizure, hidradenitis suppurative, hypertension, type 2 diabetes, obesity, and tobacco use disorder, and newly diagnosed JOSEP who presented to the emergency department with leukocytosis and exam findings consistent with necrotizing fasciitis. - 07/09: debridement of necrotizing fasciitis in right lower extremity, groin, pubis, and abdominalwall of skin, subcutaneous tissue, and muscle fascia - 07/10: repeat irrigation and debridement of RLE necrotizing fasciitis - 07/11: wound washout, no debridement necessary Overnight: NAEON. Interval: GCS 15. Anxious. HDS on room air. Mobilizing with PT/OT. Tolerating PO diet. Last BM: Reporting new wound. Afebrile. No DVT visualized on Lower Extremity Duplexes. Edited by: Jason Andre MD at 07/18/2025 0704 Relevant review of systems was obtained as able and is negative unless stated above in HPI. Vital signs: Vitals: 07/18/25 0424 BP: 101/64 Pulse: 75 Resp: Temp: 36.8 ??C (98.3 ??F) SpO2: 93% Physical Exam Constitutional: Appearance: Normal appearance. Obese. HENT: Head: Normocephalic. Right Ear: External ear normal. Left Ear: External ear normal. Eyes: Extraocular Movements: Extraocular movements intact. Conjunctiva/sclera: Conjunctivae normal. Pulmonary: Effort: Pulmonary effort is normal. Abdominal: General: Abdomen is flat. Palpations: Abdomen is soft. Wound vac in place and to suction Skin: General: Skin is warm and dry. Findings: Dressings in place. New wound on R medial thigh, mildly indurated. Painful. Neurological: Mental Status: She is alert. Psychiatric: Mood and Affect: Mood normal. Behavior: Behavior normal. Intake/Output Summary (Last 24 hours) at 07/18/2025 0705 Last data filed at 07/18/2025 0600 Gross per 24 hour Intake 720 ml Output 600 ml Net 120 ml Lines/Drains/Tubes: Patient Lines/Drains/Airways Status Active Airway None Output by Drain (mL) 07/16/25 07 - 07/16/25 18507/16/25 190 - 07/17/25 0659 07/17/25 07 - 07/17/25 18507/17/25 190 - 07/18/25 0659 07/18/25 07 - 07/18/25 0705 Patient has no LDAs of requested type attached. Labs in last 18 hours: CBC WBC 16.76 (H) Hb 9.1 (L) Plt 523 (H) Hct 28.8 (L) ANC ?? INR ??, PTT ??, Anti-Xa ?? MCV 89 BMP Na 138 Cl 99 BUN 11 Glu 163 (H) K 3.8 Co2 29 Cr 0.65 Ca 8.5 (L) iCa ?? Mg ??, Phos ?? Lactate ?? LFT AST ?? AlkPhos ?? T Prot ?? ALK ?? Bili ?? Alb ?? D.Bili ?? Lab Trends: H/H Results from last 7 days Lab Units 07/18/25 0607/17/25 0520 07/16/25 0525 HEMOGLOBIN g/dL 9.1* 9.2* 8.9* HEMATOCRIT % 28.8* 29.4* 28.9* INR Cr Results from last 7 days Lab Units 07/18/25 0607/17/25 0520 07/16/25 0525 CREATININE mg/dL 0.65 0.59* 0.48* Medications reviewed. Vital signs reviewed. Labs reviewed. Radiography reviewed. Assessment and Plan: Assessment & Plan Necrotizing fasciitis (CMS/HCC) Present on Admission: Yes - 07/09: debridement of necrotizing fasciitis in right lower extremity, groin, pubis, and abdominalwall of skin, subcutaneous tissue, and muscle fascia - 07/10: repeat irrigation and debridement of RLE necrotizing fasciitis - 07/11: wound washout, no debridement necessary Admitted to ICU for postoperative monitoring. - 07/13: Downgraded to floor On IV Linezolid Daily dressing changes, PRN Dilaudid available. Possibly d/c Linezolid pending wound eval PT/OT eval pending DM (diabetes mellitus) (CMS/HCC) Present on Admission: Yes - Patient presenting with significant hyperglycemia, requiring an insulin drip on admission. - Currently off insulin drip Pharmacy to dose insulin Glargine 10U, Lispro correction and nighttime dosing. Carbohydrate restricted diet Hidradenitis Present on Admission: Yes Follows with outpatient provider Smoker Present on Admission: Yes - Patient smokes 0.5-1ppd. - Smoking cessation when appropriate. Chronic obstructive pulmonary disease, unspecified (CMS/HCC) Present on Admission: Yes Complicates care. Continue Albuterol and DuoNebs. 3L Nasal cannula, continue to wean as tolerated Monitor respiratory status clinically HTN (hypertension), benign Present on Admission: Yes Restart home meds as appropriate Depression Present on Admission: Yes Home Duloxetine Morbid (severe) obesity due to excess calories (CMS/HCC) Present on Admission: Yes Complicates all aspect of care Urge incontinence Present on Admission: Yes Patient currently with a montalvo catheter. Remove when able. Absence seizure (CMS/HCC) Present on Admission: Yes - On Lamictal 50mg BID at home. Restarted 07/09. Acute respiratory failure Present on Admission: Yes CPAP at night for suspected sleep apnea Lasix PRN for pulmonary edema and to help with breathing Improving, will continue to monitor Septic shock (CMS/HCC) Present on Admission: Yes Septic shock secondary to necrotizing fascitis. Required Levophed and Vasopressin for circulatory support. Currently off pressor support, continue to monitor pressures. HLD (hyperlipidemia) Present on Admission: Yes Home Rosuvastatin JOSEP (obstructive sleep apnea) Present on Admission: No CPAP at night Postoperative pain Present on Admission: Unknown MMPC Hypoxia Present on Admission: Unknown Non-Hospital Problems Carpal tunnel syndrome Dehydration Hidradenitis suppurativa History of hysterectomy Marijuana smoker Pharyngitis Type 2 diabetes mellitus Overview Signed 08/31/2023 9:36 AM by Janell Bueno Last Assessment & Plan: Condition: stable Discussed glucose control targets. Educated on: Lifestyle changes Follow up in: three months with PCP Vitamin D deficiency Overview Signed 08/31/2023 9:36 AM by Janell Bueno Last Assessment & Plan: Condition: stable Follow up in: three months Wound dehiscence Stress incontinence Nocturia Plan: - WC managing Wound Vac - No IV pain meds at next wound change - IS, Wean Supplemental O2 as able - CPAP at night for JOSEP - Linezolid and Cefepime w/ U/s for RLE wound - MR for placement Dispo: AR. Edited by: Jason Andre MD at 07/18/2025 0705 Jason Andre MD Cosigned by Anne Franco MD at 07/24/2025 11:19 PM EDT Associated attestation - Anne Franco MD - 07/24/2025 11:19 PM EDT I saw and evaluated the patient with the resident/fellow. I discussed the case with the resident/fellow and agree with the findings and plan as documented. Management of complex wound, debility are not routine care * Care Plan - Inessa Almazan RN - 07/18/2025 2:18 AM EDT Problem: Adult Inpatient Plan of Care Goal: Plan of Care Review Outcome: Ongoing, Progressing Flowsheets Taken 07/18/2025204 by Inessa Almazan RN Progress: improving Taken 07/17/20251934 by Josi Ann RN Plan of Care Reviewed With: patient Goal: Patient-Specific Goal (Individualized) Outcome: Ongoing, Progressing Flowsheets (Taken 07/17/20251999) Patient/Family-Specific Goals (Include Timeframe): Patient will state adequate pain control for duration of shift. Individualized Care Needs: pain management Anxieties, Fears or Concerns: pain Goal: Absence of Hospital-Acquired Illness or Injury Outcome: Ongoing, Progressing Intervention: Identify and Manage Fall Risk Flowsheets (Taken 07/17/20251999) Safety Promotion/Fall Prevention: activity supervised assistive device/personal items within reach clutter-free environment maintained fall prevention program maintained lighting adjusted mobility aid in reach nonskid shoes/slippers when out of bed room organization consistent safety round/check completed toileting scheduled Intervention: Prevent Skin Injury Flowsheets (Taken 07/17/20251999) Body Position: weight shifting Skin Protection: incontinence pads utilized protective footwear used pulse oximeter probe site changed transparent dressing maintained Intervention: Prevent and Manage VTE (Venous Thromboembolism) Risk Flowsheets (Taken 07/17/20251999) VTE Prevention/Management: bilateral lower extremity SCDs (sequential compression devices) on medication Intervention: Prevent Infection Flowsheets (Taken 07/18/2025204) Infection Prevention: environmental surveillance performed equipment surfaces disinfected hand hygiene promoted personal protective equipment utilized rest/sleep promoted single patient room provided Goal: Optimal Comfort and Wellbeing Outcome: Ongoing, Progressing Intervention: Monitor Pain and Promote Comfort Flowsheets (Taken 07/18/2025204) Pain Management Interventions: medication (see MAR) pillow support provided position adjusted Intervention: Provide Person-Centered Care Flowsheets (Taken 07/18/2025204) Trust Relationship/Rapport: care explained choices provided emotional support provided empathic listening provided questions answered questions encouraged reassurance provided thoughts/feelings acknowledged Problem: Skin Injury Risk Increased Goal: Skin Health and Integrity Outcome: Ongoing, Progressing Intervention: Optimize Skin Protection Flowsheets Taken 07/18/2025204 Pressure Reduction Techniques: frequent weight shift encouraged weight shift assistance provided Pressure Reduction Devices: positioning supports utilized Taken 07/17/20251999 Activity Management: activity adjusted per tolerance activity encouraged Skin Protection: incontinence pads utilized protective footwear used pulse oximeter probe site changed transparent dressing maintained Head of Bed (HOB) Positioning: HOB elevated Intervention: Promote and Optimize Oral Intake Flowsheets (Taken 07/18/2025204) Oral Nutrition Promotion: rest periods promoted social interaction promoted Nutrition Interventions: meal set-up provided Problem: Infection Goal: Absence of Infection Signs and Symptoms Outcome: Ongoing, Progressing Intervention: Prevent or Manage Infection Flowsheets Taken 07/18/2025204 Infection Management: aseptic technique maintained Fever Reduction/Comfort Measures: lightweight bedding Taken 07/17/20251999 Isolation Precautions: protective precautions maintained Problem: Fall Injury Risk Goal: Absence of Fall and Fall-Related Injury Outcome: Ongoing, Progressing Intervention: Identify and Manage Contributors Flowsheets (Taken 07/18/2025204) Medication Review/Management: medications reviewed Self-Care Promotion: independence encouraged BADL personal objects within reach BADL personal routines maintained adaptive equipment use encouraged Intervention: Promote Injury-Free Environment Flowsheets (Taken 07/17/20251999) Safety Promotion/Fall Prevention: activity supervised assistive device/personal items within reach clutter-free environment maintained fall prevention program maintained lighting adjusted mobility aid in reach nonskid shoes/slippers when out of bed room organization consistent safety round/check completed toileting scheduled Problem: Self-Care Deficit Goal: Improved Ability to Complete Activities of Daily Living Outcome: Ongoing, Progressing Intervention: Promote Activity and Functional Tonica Flowsheets (Taken 07/18/2025204) Activity Assistance Provided: assistance, stand-by Self-Care Promotion: independence encouraged BADL personal objects within reach BADL personal routines maintained adaptive equipment use encouraged Problem: Wound Goal: Optimal Coping Outcome: Ongoing, Progressing Intervention: Support Patient and Family Response Flowsheets (Taken 07/18/2025204) Supportive Measures: active listening utilized goal-setting facilitated positive reinforcement provided problem-solving facilitated relaxation techniques promoted self-care encouraged verbalization of feelings encouraged Family/Support System Care: involvement promoted self-care encouraged support provided Goal: Absence of Infection Signs and Symptoms Outcome: Ongoing, Progressing Intervention: Prevent or Manage Infection Flowsheets (Taken 07/18/2025204) Infection Management: aseptic technique maintained Fever Reduction/Comfort Measures: lightweight bedding Goal: Skin Health and Integrity Outcome: Ongoing, Progressing Intervention: Optimize Skin Protection Flowsheets Taken 07/18/2025204 by Inessa Almazan RN Pressure Reduction Techniques: frequent weight shift encouraged weight shift assistance provided Pressure Reduction Devices: positioning supports utilized Taken 07/17/20251999 by Inessa Almazan RN Activity Management: activity adjusted per tolerance activity encouraged Taken 07/14/2025 1800 by Josi Ann RN Skin Protection: frequent weight shift encouraged weight shift assistance provided incontinence pads utilized Goal: Optimal Wound Healing Outcome: Ongoing, Progressing Intervention: Promote Wound Healing Flowsheets (Taken 07/18/2025204) Sleep/Rest Enhancement: awakenings minimized consistent schedule promoted regular sleep/rest pattern promoted relaxation techniques promoted room darkened * Care Plan - Josi Ann RN - 07/17/2025 7:37 PM EDT Problem: Adult Inpatient Plan of Care Goal: Plan of Care Review Outcome: Ongoing, Progressing Flowsheets (Taken 07/17/2025 1935) Progress: improving Plan of Care Reviewed With: patient Goal: Patient-Specific Goal (Individualized) Outcome: Ongoing, Progressing Flowsheets (Taken 07/17/2025 1600) Patient/Family-Specific Goals (Include Timeframe): patient will remain free of fall or injury this shift Individualized Care Needs: safety Anxieties, Fears or Concerns: denies Goal: Absence of Hospital-Acquired Illness or Injury Outcome: Ongoing, Progressing Intervention: Identify and Manage Fall Risk Flowsheets (Taken 07/17/2025 1600) Safety Promotion/Fall Prevention: activity supervised assistive device/personal items within reach clutter-free environment maintained fall prevention program maintained mobility aid in reach lighting adjusted nonskid shoes/slippers when out of bed room organization consistent safety round/check completed Goal: Optimal Comfort and Wellbeing Outcome: Ongoing, Progressing Intervention: Provide Person-Centered Care Flowsheets (Taken 07/17/2025 1600) Trust Relationship/Rapport: care explained choices provided emotional support provided empathic listening provided questions answered questions encouraged reassurance provided thoughts/feelings acknowledged Problem: Skin Injury Risk Increased Goal: Skin Health and Integrity Outcome: Ongoing, Progressing Intervention: Optimize Skin Protection Flowsheets (Taken 07/17/2025 1600) Activity Management: activity adjusted per tolerance Pressure Reduction Techniques: frequent weight shift encouraged weight shift assistance provided Pressure Reduction Devices: positioning supports utilized Skin Protection: protective footwear used pulse oximeter probe site changed Head of Bed (HOB) Positioning: HOB elevated Problem: Infection Goal: Absence of Infection Signs and Symptoms Outcome: Ongoing, Progressing Intervention: Prevent or Manage Infection Flowsheets (Taken 07/17/2025 1600) Infection Management: aseptic technique maintained Fever Reduction/Comfort Measures: lightweight bedding Isolation Precautions: precautions maintained Problem: Fall Injury Risk Goal: Absence of Fall and Fall-Related Injury Outcome: Ongoing, Progressing Intervention: Promote Injury-Free Environment Flowsheets (Taken 07/17/2025 1600) Safety Promotion/Fall Prevention: activity supervised assistive device/personal items within reach clutter-free environment maintained fall prevention program maintained mobility aid in reach lighting adjusted nonskid shoes/slippers when out of bed room organization consistent safety round/check completed Problem: Self-Care Deficit Goal: Improved Ability to Complete Activities of Daily Living Outcome: Ongoing, Progressing Intervention: Promote Activity and Functional Tonica Flowsheets Taken 07/16/2025 0635 by Yessenia Ramirez Activity Assistance Provided: assistance, stand-by Taken 07/16/2025 0129 by Eulalia Estrada, RN Self-Care Promotion: independence encouraged BADL personal objects within reach BADL personal routines maintained adaptive equipment use encouraged Taken 07/14/2025 2311 by Rita Alejandro, RN Adaptive Equipment Use: long-handled shoe horn Problem: Wound Goal: Optimal Coping Outcome: Ongoing, Progressing Intervention: Support Patient and Family Response Flowsheets (Taken 07/17/2025 1600) Supportive Measures: active listening utilized counseling provided self-care encouraged Family/Support System Care: self-care encouraged Goal: Optimal Functional Ability Outcome: Ongoing, Progressing Goal: Absence of Infection Signs and Symptoms Outcome: Ongoing, Progressing Intervention: Prevent or Manage Infection Flowsheets (Taken 07/17/2025 1600) Infection Management: aseptic technique maintained Fever Reduction/Comfort Measures: lightweight bedding Isolation Precautions: precautions maintained Goal: Improved Oral Intake Outcome: Ongoing, Progressing Goal: Optimal Pain Control and Function Outcome: Ongoing, Progressing Intervention: Prevent or Manage Pain Flowsheets (Taken 07/17/2025 1600) Pain Management Interventions: emotional support pillow support provided position adjusted Sleep/Rest Enhancement: consistent schedule promoted regular sleep/rest pattern promoted Goal: Skin Health and Integrity Outcome: Ongoing, Progressing Intervention: Optimize Skin Protection Flowsheets Taken 07/17/2025 1600 Activity Management: activity adjusted per tolerance Pressure Reduction Techniques: frequent weight shift encouraged weight shift assistance provided Pressure Reduction Devices: positioning supports utilized Head of Bed (HOB) Positioning: HOB elevated Taken 07/14/2025 1800 Skin Protection: frequent weight shift encouraged weight shift assistance provided incontinence pads utilized Goal: Optimal Wound Healing Outcome: Ongoing, Progressing Intervention: Promote Wound Healing Flowsheets (Taken 07/17/2025 1600) Sleep/Rest Enhancement: consistent schedule promoted regular sleep/rest pattern promoted * Progress Notes - Kathy Morris APRN - 07/17/2025 5:54 PM EDT Endocrine - Diabetes Consult follow-up: Subjective: 24 hour update: -No acute events overnight -AM BG 139 -PO intake: overall low PO intake today; patient states she doesn't have much of an appetite -laying in bed at time of visit; wound vac change today which she stated was very painful -Discussed current insulin regimen Review of Systems Constitutional: Positive for activity change and appetite change. Negative for chills and fever. Respiratory: Positive for shortness of breath (states SOA at night). Gastrointestinal: Positive for nausea (intermittent). Endocrine: See HPI Skin: Positive for wound. I have reviewed the patient's blood glucose levels, labs, vitals, and insulin doses administered inthe electronic medical record. Objective: Physical Exam Constitutional: General: She is not in acute distress. Appearance: She is obese. HENT: Head: Normocephalic and atraumatic. Right Ear: External ear normal. Left Ear: External ear normal. Nose: Nose normal. Mouth/Throat: Mouth: Mucous membranes are moist. Eyes: Conjunctiva/sclera: Conjunctivae normal. Pulmonary: Effort: Pulmonary effort is normal. No respiratory distress. Skin: General: Skin is warm and dry. Coloration: Skin is not jaundiced. Neurological: Mental Status: She is alert. Psychiatric: Mood and Affect: Mood normal. BP 106/64 Pulse 84 Temp 36.7 ??C (98 ??F) Resp 18 Ht 1.778 m (5' 10 ) Wt 181 kg (398 lb 2.4 oz) BMI 57.13 kg/m?? Medications: Current Scheduled Medications[1] Current Continuous Medications[2] Current PRN Medications[3] Diet Dietary Orders (From admission, onward) Start Ordered 07/15/25 1200 Adult diet Diet texture: Regular; Carbohydrate restriction: Consistent Carb 2 (80 gm max/meal); Modified Calorie/Protein: High Calorie, High Protein; Other restriction(s): Gluten Free (Adult Diet Panel) Diet effective now References: IDDSI Diet Texture Guide Question Answer Comment Diet texture Regular Carbohydrate restriction: Consistent Carb 2 (80 gm max/meal) Modified Calorie/Protein: High Calorie, High Protein Other restriction(s): Gluten Free 07/15/25 1159 Lab Review: Results from last 7 days Lab Units 07/17/25 0520 SODIUM mmol/L 139 POTASSIUM mmol/L 3.8 CHLORIDE mmol/L 97 CO2 mmol/L 31* BUN mg/dL 8 CREATININE mg/dL 0.59* EGFR mL/min/1.73m*2 110.6 GLUCOSE mg/dL 140* CALCIUM mg/dL 8.6* Results from last 7 days Lab Units 07/17/25 0520 WBC 10*3/uL 22.29* HEMOGLOBIN g/dL 9.2* HEMATOCRIT % 29.4* PLATELETS 10*3/uL 484* Lab Results Component Value Date GLUCOSE 140 (H) 07/17/2025 GLUCOSE 149 (H) 07/16/2025 GLUCOSE 150 (H) 07/15/2025 PGLU 162 (H) 07/16/2025 PGLU 190 (H) 07/16/2025 PGLU 150 (H) 07/16/2025 PGLU 172 (H) 07/16/2025 PGLU 173 (H) 07/15/2025 PGLU 234 (H) 07/15/2025 PGLU 153 (H) 07/15/2025 PGLU 132 (H) 07/15/2025 I reviewed bg tracing in epic glucose timeline 07/17/25 ASSESSMENT Hospital Course: Cristina Brown is a 50 y.o. female with hx of type 2 DM, morbid obesity, hidradenitis supparativa, current smoker (1.5 ppd), hx of absent seizures, UTI, depression, anxiety, asthma, HLD, celiac disease who initially came to [facility] on 07/08/2025 as transfer with concern for sepsis from necrotizing fascitis of RLE. - 07/09: debridement of necrotizing fasciitis in right lower extremity, groin, pubis, and abdominalwall of skin, subcutaneous tissue, and muscle fascia - 07/10: repeat irrigation and debridement of RLE necrotizing fasciitis - 07/11: wound washout, no debridement necessary Daily Glucose and Insulin Total Daily Dose -admitted 07/08 -consulted 07/15 BG 132-234 TDD 13 units -07/16: 150-190 TDD 12 units -07/17: 139 (fasting) -A1c: Lab Results Component Value Date HGBA1C 7.5 (H) 07/09/2025 -Diet: CC2 gluten free diet -Steroids: none Diagnoses #Sepsis from necrotizing fascitis #Celiac disease - chronic, stable without current active symptoms #Morbid Obesity BMI 57.13 -complicates all aspects of care -contributes to insulin resistance #diabetes mellitus - type 2 #hyperglycemia -A1C 7.5 -Home medications: Non insulin diabetes medications at home : Metformin 500mg BID w meals Failed/Discontinued meds:Ozempic 0.25 mg discontinued due to constipation and dyspepsia -see inpatient diabetes plan of care below PLAN: Primary team requesting recommendations and orders -After review of glucose trends and insulin delivery over the last 24 hours, small decrease to basal insulin dose for BG of 139 this AM and then down to 115 before evening meal Current Hospital Regimen: Insulin regimen: Basal: 10 units , glargine, nightly Decrease to 8 units nightly Bolus: continue to assess need Correction: standard dosing 1:50>150 lispro at mealtimes; 1:50>250 lispro bedtime, 3am PRN -Continue intensive glucose monitoring due to increased risk for hyper/hypoglycemia secondary to insulin therapy -Will continue to assess blood glucose trends and adjust basal/bolus insulin therapy dose according -fsbg ac/hs when eating, q6h when NPO, on TF/TPN -correction insulin to be given for hyperglycemia, do not hold correction if patient does not eat. -hypoglycemia protocol in place -Please document the percentage of meals consumed in intake and output flowsheet. -please notify us when diet orders change or steroids added as this impacts our tx Discharge planning -Diabetes education: continue to assess need - if insulin is needed, patient would benefit from diabetes education -Follow-up plan: patient would like to establish care with endocrine provider in [place], [place]. --> Provided patient with address and number of clinic. [[facility] in the [facility]]. -Tentative discharge recommendations: Likely resume home metformin Need for insulin therapy - TBD - if insulin is needed, patient would benefit from diabetes education Check glucose before meals and at bedtime, check as needed for symptoms of hypoglycemia and hyperglycemia. May substitute for therapeutic equivalent per insurance and retail PharmD approval -Supplies/scripts needed: Ensure patient has working glucose meter and supplies Kathy Morris APRN DM/Endo team will continue to follow. Please notify us as patient nears discharge for final recommendations Please contact Kathy Morris APRN [place] Adult Inpatient Diabetes team via secure chat or page us at [phone] during 7a-7p, Tuesday-Tuesday. For after hours please contact the on-call Endocrine Fellow. Thank you for the opportunity to participate in this patient's care. Time Spent: I personally spent a total of 33 minutes on this encounter. This time includes face to face with patient, counseling and discussion and/or coordination of care. [1] acetaminophen, 1,000 mg, Oral, q6h MARIBELL busPIRone, 15 mg, Oral, BID DULoxetine, 60 mg, Oral, Daily enoxaparin, 40 mg, Subcutaneous, BID insulin glargine-yfgn, 10 Units, Subcutaneous, Nightly insulin lispro, 0-5 Units, Subcutaneous, TID with meals insulin lispro, 0-3 Units, Subcutaneous, Twice at night ipratropium-albuterol, 3 mL, Nebulization, q6h RT Jose, 1 packet, Oral, BID lamoTRIgine, 100 mg, Oral, Nightly magnesium sulfate, 2 g, Intravenous, Once methocarbamol, 750 mg, Oral, TID metoprolol succinate XL, 100 mg, Oral, Nightly polyethylene glycol, 17 g, Oral, Daily rosuvastatin, 20 mg, Oral, Nightly senna-docusate, 1 tablet, Oral, BID sodium chloride, 10 mL, Intravenous, q12h [2] [3] PRN medications: busPIRone, [DISCONTINUED] glucose OR dextrose 10 % OR dextrose 10 % OR glucagon (human recombinant), ondansetron ODT OR ondansetron OR [DISCONTINUED] ondansetron, oxyCODONE OR oxyCODONE * Procedures - Arturo Mancilla RN - 07/17/2025 5:14 PM EDTAssociated Order(s): Insert peripheral IV Insert peripheral IV Performed by: Arturo Mancilla RN Authorized by: Anne Franco MD Hand hygiene: Hand hygiene performed prior to insertion Inserted using aseptic techniques: Yes Preparation: Skin prepped with chg Orientation: Right Location: Forearm Catheter placed: Peripheral IV Catheter size: 20g/1.88in Line Technique: Ultrasound Guidance Number of attempts: 1 IV flushes: Without difficulty and positive blood return noted Patient tolerance: Patient tolerated the procedure well, age appropriate response and there were nocomplications IV site covered with: Transparent semipermeable dressing * Consults - Polina Baker RD - 07/17/2025 5:00 PM EDTAssociated Order(s): IP CONSULT TO NUTRITION SERVICES Nutrition Education Consult Met with pt to provide DM/Celiac nutrition teaching, per consult. Pt not feeling well at time of visit. Offered to come back tomorrow, but pt stated that she just wanted some paperwork to take home with her about her diet. Provided ADA's Choose Your Foods booklet, celiac handouts from [employer], and RD contact information for further questions, should they arise. Offered again to come back another day, but pt stated that she would reach out if she has questions to discuss. Polina Baker RD * Progress Notes - Sophia Salazar RN - 07/17/2025 4:36 PM EDT Images from the original note were not included. Wound Care Consult Visit Date: 07/17/2025 Patient Name: Cristina Brown Date of : 1975 Admit Date: 07/08/2025 Reason for Consult: IP Wound Orders (From admission, onward) Start Ordered 07/15/25 0721 Wound ostomy eval and treat Once Comments: Consulting for wound vac, please take picture of wound prior to vac placement and includein chart Question: Instructions: Answer: Prior to sending evaluation & treat order, place wound/ostomy LDA, complete a wound/ostomy assessment, and consider taking a photograph to document. 07/15/25 0720 Wound History: per chart review patient with PMH absence seizure, hidradenitis suppurative, hypertension, type 2 diabetes, obesity, and tobacco use disorder, JOSEP, now with RLE necrotizing fascitis s/p debridement. Wound Assessment: Wound 07/08/25 Infection Necrotizing Tissue Leg Right;Upper;Inner (Active) Date First Assessed/Time First Assessed: 07/08/252108 Present on Original Admission: Yes Hand Hygiene Completed: Yes Primary Wound Type: Infection Secondary Wound Type - Infection: Necrotizing Tissue Location: Leg Wound Location Orientation: R... Assessments 07/17/2025 4:01 PM Wound Image Wound Assessment Red;Granulation Margins Well-defined edges Leann-Wound Assessment Clean;Dry;Intact Shape irregular, full thickness Drainage Description Serosanguineous Drainage Amount Moderate Treatments Cleansed Dressing Vacuum dressing Number of Packing Pieces Used 9 (4 white, 5 black) Dressing Changed (S) Changed Dressing Status Dressing Changed State of Healing Early/partial granulation Non-staged Wound Description Full thickness No associated orders. Wound Team Summary Assessment: Previous packing removed, removal was quite painful for patient with10 mg oxycodone taken 30 minutes prior, able to tolerate after provider ordered additional 0.5 mg Dilaudid for dressing change. Wound assessed as above, irrigated with normal saline, periwound cleansed and draped in windowpane fashion. Medial portion ringed with blaire strips, adaptic applied to suture lines and covered with black foam. White foam tucked into tunneled area to the lateral edge and into undermining to the superior edge, the rest of the wound was filled with black foam, draped and trac pad applied. Suction achieved at 125 mmHg. Patient tolerated, concern that she will not tolerate this dressing change without IV medication. Wound Team Plan: wound care to follow weekly, assist nursing PRN. Sophia Salazar RN 07/17/2025 4:36 PM * Nursing Note - Radha Ugalde RN - 07/17/2025 10:30 AM EDT Met with patient at bedside. Patient ambulating back from bathroom. Reviewed post operative instructions and restrictions, pain management, wound/incision care, preventing surgical site infections, and dietary recommendations. Discussed the importance of ambulation and incentive spirometer use to help prevent pneumonia, blood clots, and other post-operative complications. Allowed to ask questions-verbalized understanding. Callback precautions and contact information provided. Patient states when she is discharged, she would [facility] [place] CM notified. * Assessment & Plan Note - Jason Andre MD - 07/17/2025 10:21 AM EDT Associated Problem(s): Necrotizing fasciitis (CMS/[facility]) - 07/09: debridement of necrotizing fasciitis in right lower extremity, groin, pubis, and abdominalwall of skin, subcutaneous tissue, and muscle fascia - 07/10: repeat irrigation and debridement of RLE necrotizing fasciitis - 07/11: wound washout, no debridement necessary Admitted to ICU for postoperative monitoring. - 07/13: Downgraded to floor On IV Linezolid Daily dressing changes, PRN Dilaudid available. Possibly d/c Linezolid pending wound eval PT/OT eval pending * Assessment & Plan Note - Jason Andre MD - 07/17/2025 10:21 AM EDT Associated Problem(s): DM (diabetes mellitus) - Patient presenting with significant hyperglycemia, requiring an insulin drip on admission. - Currently off insulin drip Pharmacy to dose insulin Glargine 10U, Lispro correction and nighttime dosing. Carbohydrate restricted diet * Assessment & Plan Note - Jason Andre MD - 07/17/2025 10:21 AM EDT Associated Problem(s): Hidradenitis Follows with outpatient provider * Assessment & Plan Note - Jason Andre MD - 07/17/2025 10:21 AM EDT Associated Problem(s): Smoker - Patient smokes 0.5-1ppd. - Smoking cessation when appropriate. * Assessment & Plan Note - Jason Andre MD - 07/17/2025 10:21 AM EDT Associated Problem(s): Chronic obstructive pulmonary disease, unspecified Complicates care. Continue Albuterol and DuoNebs. 3L Nasal cannula, continue to wean as tolerated Monitor respiratory status clinically * Assessment & Plan Note - Jason Andre MD - 07/17/2025 10:21 AM EDT Associated Problem(s): HTN (hypertension), benign Restart home meds as appropriate * Assessment & Plan Note - Jason Andre MD - 07/17/2025 10:21 AM EDT Associated Problem(s): Depression Home Duloxetine * Assessment & Plan Note - Jason Andre MD - 07/17/2025 10:21 AM EDT Associated Problem(s): Morbid (severe) obesity due to excess calories (CMS/HCC) Complicates all aspect of care * Assessment & Plan Note - Jason Andre MD - 07/17/2025 10:21 AM EDT Associated Problem(s): Urge incontinence Patient currently with a montalvo catheter. Remove when able. * Assessment & Plan Note - Jason Adnre MD - 07/17/2025 10:21 AM EDT Associated Problem(s): Absence seizure (CMS/HCC) - On Lamictal 50mg BID at home. Restarted 07/09. * Assessment & Plan Note - Jason Andre MD - 07/17/2025 10:21 AM EDT Associated Problem(s): Acute respiratory failure CPAP at night for suspected sleep apnea Lasix PRN for pulmonary edema and to help with breathing Improving, will continue to monitor * Assessment & Plan Note - Jason Andre MD - 07/17/2025 10:21 AM EDT Associated Problem(s): Septic shock (CMS/HCC) Septic shock secondary to necrotizing fascitis. Required Levophed and Vasopressin for circulatory support. Currently off pressor support, continue to monitor pressures. * Assessment & Plan Note - Jason Andre MD - 07/17/2025 10:21 AM EDT Associated Problem(s): HLD (hyperlipidemia) Home Rosuvastatin * Assessment & Plan Note - Jason Andre MD - 07/17/2025 10:21 AM EDT Associated Problem(s): JOSEP (obstructive sleep apnea) CPAP at night * Assessment & Plan Note - Jason Andre MD - 07/17/2025 10:21 AM EDT Associated Problem(s): Postoperative pain MMPC * Progress Notes - Jason Andre MD - 07/17/2025 10:18 AM EDT 07/17/25 Cristina Brown HPI 50-year-old female with past medical history of absence seizure, hidradenitis suppurative, hypertension, type 2 diabetes, obesity, and tobacco use disorder, and newly diagnosed JOSEP who presented to the emergency department with leukocytosis and exam findings consistent with necrotizing fasciitis. - 07/09: debridement of necrotizing fasciitis in right lower extremity, groin, pubis, and abdominalwall of skin, subcutaneous tissue, and muscle fascia - 07/10: repeat irrigation and debridement of RLE necrotizing fasciitis - 07/11: wound washout, no debridement necessary Overnight: NAEON. Interval: GCS 15. Anxious. HDS on 4L O2 via NC. Mobilizing around hospital. Tolerating PO diet. UOP: 3L. Last BM: 07/26. Reporting new rash. Afebrile. No DVT visualized on Lower Extremity Duplexes. Edited by: Inderjit Montes PA at 07/17/2025 0639 Relevant review of systems was obtained as able and is negative unless stated above in HPI. Vital signs: Vitals: 07/17/25 0845 BP: Pulse: Resp: Temp: SpO2: 97% Physical Exam Constitutional: Appearance: Normal appearance. Obese. Interventions: Nasal cannula in place. HENT: Head: Normocephalic. Right Ear: External ear normal. Left Ear: External ear normal. Eyes: Extraocular Movements: Extraocular movements intact. Conjunctiva/sclera: Conjunctivae normal. Pulmonary: Effort: Pulmonary effort is normal. Abdominal: General: Abdomen is flat. Palpations: Abdomen is soft. Wound vac in place and to suction Skin: General: Skin is warm and dry. Findings: Dressings in place. New wound on R medial thigh, mildly indurated. Painful. Neurological: Mental Status: She is alert. Psychiatric: Mood and Affect: Mood normal. Behavior: Behavior normal. Intake/Output Summary (Last 24 hours) at 07/17/2025 1019 Last data filed at 07/16/2025 1122 Gross per 24 hour Intake -- Output 900 ml Net -900 ml Lines/Drains/Tubes: Patient Lines/Drains/Airways Status Active Airway None Output by Drain (mL) 07/15/25 0700 - 07/15/25 1859 07/15/25 1900 - 07/16/25 0659 07/16/25 0700 - 07/16/25 1859 07/16/25 1900 - 07/17/25 0659 07/17/25 0700 - 07/17/25 1019 Patient has no LDAs of requested type attached. Labs in last 18 hours: CBC WBC 22.29 (H) Hb 9.2 (L) Plt 484 (H) Hct 29.4 (L) ANC ?? INR ??, PTT ??, Anti-Xa ?? MCV 88 BMP Na 139 Cl 97 BUN 8 Glu 140 (H) K 3.8 Co2 31 (H) Cr 0.59 (L) Ca 8.6 (L) iCa ?? Mg 1.8 (L), Phos 3.0 Lactate ?? LFT AST ?? AlkPhos ?? T Prot ?? ALK ?? Bili ?? Alb ?? D.Bili ?? Lab Trends: H/H Results from last 7 days Lab Units 07/17/25 0520 07/16/25 0525 07/14/25 0936 HEMOGLOBIN g/dL 9.2* 8.9* 9.2* HEMATOCRIT % 29.4* 28.9* 29.4* INR Cr Results from last 7 days Lab Units 07/17/25 0520 07/16/25 0525 07/15/25 0450 CREATININE mg/dL 0.59* 0.48* 0.54* Medications reviewed. Vital signs reviewed. Labs reviewed. Radiography reviewed. Assessment and Plan: Assessment & Plan Necrotizing fasciitis (CMS/HCC) Present on Admission: Yes - 07/09: debridement of necrotizing fasciitis in right lower extremity, groin, pubis, and abdominalwall of skin, subcutaneous tissue, and muscle fascia - 07/10: repeat irrigation and debridement of RLE necrotizing fasciitis - 07/11: wound washout, no debridement necessary Admitted to ICU for postoperative monitoring. - 07/13: Downgraded to floor On IV Linezolid Daily dressing changes, PRN Dilaudid available. Possibly d/c Linezolid pending wound eval PT/OT eval pending DM (diabetes mellitus) (CMS/HCC) Present on Admission: Yes - Patient presenting with significant hyperglycemia, requiring an insulin drip on admission. - Currently off insulin drip Pharmacy to dose insulin Glargine 10U, Lispro correction and nighttime dosing. Carbohydrate restricted diet Hidradenitis Present on Admission: Yes Follows with outpatient provider Smoker Present on Admission: Yes - Patient smokes 0.5-1ppd. - Smoking cessation when appropriate. Chronic obstructive pulmonary disease, unspecified (CMS/HCC) Present on Admission: Yes Complicates care. Continue Albuterol and DuoNebs. 3L Nasal cannula, continue to wean as tolerated Monitor respiratory status clinically HTN (hypertension), benign Present on Admission: Yes Restart home meds as appropriate Depression Present on Admission: Yes Home Duloxetine Morbid (severe) obesity due to excess calories (CMS/HCC) Present on Admission: Yes Complicates all aspect of care Urge incontinence Present on Admission: Yes Patient currently with a montalvo catheter. Remove when able. Absence seizure (CMS/HCC) Present on Admission: Yes - On Lamictal 50mg BID at home. Restarted 07/09. Acute respiratory failure Present on Admission: Yes CPAP at night for suspected sleep apnea Lasix PRN for pulmonary edema and to help with breathing Improving, will continue to monitor Septic shock (CMS/HCC) Present on Admission: Yes Septic shock secondary to necrotizing fascitis. Required Levophed and Vasopressin for circulatory support. Currently off pressor support, continue to monitor pressures. HLD (hyperlipidemia) Present on Admission: Yes Home Rosuvastatin JOSEP (obstructive sleep apnea) Present on Admission: No CPAP at night Postoperative pain Present on Admission: [facility] Hypoxia Present on Admission: Unknown Non-Hospital Problems Carpal tunnel syndrome Dehydration Hidradenitis suppurativa History of hysterectomy Marijuana smoker Pharyngitis Type 2 diabetes mellitus Overview Signed 08/31/2023 9:36 AM by Janell Bueno Last Assessment & Plan: Condition: stable Discussed glucose control targets. Educated on: Lifestyle changes Follow up in: three months with PCP Vitamin D deficiency Overview Signed 08/31/2023 9:36 AM by Janell Bueno Last Assessment & Plan: Condition: stable Follow up in: three months Wound dehiscence Stress incontinence Nocturia Plan: - WC managing Wound Vac - IS, Wean Supplemental O2 as able - CPAP at night for JOSEP - Linezolid and Cefepime w/ U/s for RLE wound Dispo: AR. Not MR, pending wound closure. Edited by: Inderjit Montes PA at 07/17/2025 0929 Jason Andre MD Cosigned by Anne Franco MD at 07/23/2025 11:21 PM EDT Associated attestation - Anne Franco MD - 07/23/2025 11:21 PM EDT I saw and evaluated the patient with the resident/fellow. I discussed the case with the resident/fellow and agree with the findings and plan as documented. Management of hypoxia, complex wound, debility are not routine care * Progress Notes - Candice Burden - 07/17/2025 10:03 AM EDT OCCUPATIONAL THERAPY TREATMENT Note to patient: The Century Cures Act makes medical notes like these available to patients inthe interest of transparency. However, be advised this is a medical document. It is intended as peer to peer communication. It is written in medical language and may contain abbreviations or verbiagethat are unfamiliar. It may appear blunt or direct. Medical documents are intended to carry relevant information, facts as evident, and the clinical opinion of the practitioner. PATIENT DATA Patient Name Cristina Brown Session Date 07/17/2025 Total Treatment Time 79 minutes OT Discharge Recommendations Acute rehab Equipment Recommendations Defer to facility Discharge Transportation Wheelchair transport van/shuttle PRECAUTIONS Mobility Guidelines There are no questions and answers to display. Weight Bearing Precautions (if applicable) ROM Restrictions (if applicable) Medical Precautions Medical Precautions: Fall precautions HOME LIVING/SET-UP Lives With Significant other (dheeraj + his mother, god brother + his and dad) Home Type House Home Equipment None Home Layout Two level, Able to live on one level with bedroom/bathroom, Stairs to enter with rails 4 (center rail - but it's not very sturdy/stable per pt report) Bathroom Layout Tub/Shower combo, Handheld shower head Standard Accessible via walker Additional Comments Still driving, not working. Should have someone available to assist her at home, but dheeraj does work. PRIOR LEVEL OF FUNCTION Receives help from No assist required prior to admission Level of Mobility Ambulatory- community Mobility [place] Independent gait without device History of Falls No ( Not that I can remember. ) ADL Performance ADL Performance: Independent PRESENTATION Oxygen Supplemental oxygen 1 L/min Telemetry No- pulse oximetry only Lines and Tubes Negative Pressure Wound Therapy Leg Anterior;Right;Upper (Active) Peripheral IV 07/12/25 Right Forearm (Active) Pre-Session Sitting: edge of bed RN consenting to OT treatment. Post-Session Sitting in chair, RN notified, Lines intact, Call light in reach Chair alarm deferred;patient up ad brit with nursing All needs met upon close of session. Bracing (if applicable) SUBJECTIVE PARTICIPANTS IN CARE Patient/Caregiver Comments Patient agreeable to OT session, motivated and engaged throughout Visitors Present None Order Checker Packer Processer (if applicable) OBJECTIVE PAIN Rates pain at incision 7/10 with indicators of high pain including diaphoresis and spontaneous tears. Pain management addressed by the following: * pt was positioned for comfort * pressure relief and postural alignment was achieved via positioning assist * RN was informed of pt's pain DELIRIUM SCREENING RASS: Alert and calm Confusion Assessment Method-ICU (CAM-ICU/PCAM-ICU) Feature 3: Altered Level of Consciousness: Negative COGNITION SCREENING Overall Cognitive Status Within Functional Limits Arousal/Alertness Appropriate responses to stimuli Mood/Behavior Alert (emotionally labile; has been off her anxiety medications for ~2 weeks per patient report, with medications restarted a few days prior.) Orientation Oriented X4 Command Following Single Step Commands: Consistently, 100% of the time Multi- Step Commands: Consistently, 100% of the time Method of Communication Verbal Additional Observations Safety Judgment: Good awareness of safety precautions Awareness of Errors: Good awareness of errors made, Assistance required to correct errors made Deficit Awareness: Fully aware of deficits Attention Span: Appears intact OT INTERVENTIONS SELF-CARE Treatment Minutes 79 Comments Pt benefited from skilled occupational therapy interventions including: Monitoring of vitals to ensure activity tolerance: HR elevated and O2 desaturation in response to exertional demands of session. MIN verbal and tactile cues to facilitate modified body mechanics during functional tasks Provision of increased time frames to support optimal level of pt participation Task/activity modification with grading as needed to achieve safety while also providing appropriate functional challenge Skilled organization and management of medical lines/tubes to reduce fall risk with mobility aspects of ADLs Environmental set-up to ensure safety and accessibility to all needed areas of treatment space Level of [place] Interventions: Feeding Independent Edge of bed Patient able to set-up items and drink coffee intermittently throughout session Grooming Independent Edge of bed From seated position patient demo's intact UE functionality and able to use facial tissues to wipe face without assist. During standing balance based activity, CGA required for support paired with BUE support on rollator which limits ability to engage bilateral hand use for sinkside grooming Bathing UE Bathing Level of Assistance: Minimum assistance LE Bathing Level of Assistance: Minimum assistance Adaptive Equipment: Long-handled sponge Training provided for use of adaptive equipment to support increased independence with bathing; long handled sponge recommended to reduce pain for reaching to lower legs and back. Lower Body Dressing Sock Level of Assistance: Moderate assistance Adaptive Equipment: Tail Ripper, Sock aide Training and demonstration provided for use and functionality of sock aid, leg rerolling machine operator strap and continuous drier operator tool to support independence with LB dressing, bathing and light household tasks. AE and illustrated instructions administered. Health Management Training provided specific to physical activity for the purpose of developing functional endurance and generalized strengthening to improve health and decrease risk of health decline in the setting of prolonged hospitalization. Pt engaged in household mobility task to support increased activity in daily routine, with pt achieving a distance of 30ft bouts with CGA and rollator to provide balance stability and energy conservation. Multiple standing rest breaks required with OT providing MIN cues to facilitate implementationof PLB techniques for breath control . On 1LPM O2 patient desaturating to 87%, HR elevated to 140 with rest resulting in SpO2 94% and HR reduced to mid-120s. Additional training provided for use of diaphragmatic breathing technique for improving respiratory function. Handout provided discussing energy conservation strategies for pacing, planning, positioning and prioritizing during ADL performance. Access Code: [email or web address] URL: [email or web address] Putting On Socks with a Sock Aid Putting On and Taking Off Pants Using a Tail Ripper Using a Leg Energy Economist Adaptive Equipment for Bathing & Showering Understanding Energy Conservation BED MOBILITY Level of [place] Physical/Non- physical Assist Adaptive Equipment Utilized Supine to Sit Modified [place] Bed rails TRANSFERS Level of [place] Physical/Non- physical Assist Adaptive Equipment Utilized Sit to Stand Stand-by assist Supervision Rollator Stand to sit Stand-by assist Supervision Rollator ASSESSMENT Primary functional deficits: Decreased hip/knee and trunk flexibility impacting functional reach, pain, decreased endurance and impaired activity tolerance limit patient ability to perform ADLs at her baseline level of independence. Response to intervention: Activity demands of occupational therapy intervention resulting in shortness of air, dyspnea on exertion, need for frequent rest breaks , need for activity modifications , and change in vital signs with elevated HR and desaturation to 87% Barriers to return home: - Patient is unable to perform self-care and hygiene adequately which heightens potential of infection and jeopardizes skin integrity resulting in readmission risk Plan: Patent remains an appropriate candidate for occupational therapy services while inpatient to increase independence with functional ADLs, expedite return to valued occupations, and decrease caregiver burden. Additionally, this patient will require continued rehab services at the intensity and duration provided by ACUTE REHAB placement to facilitate safe return home. Rehabilitation needs cannot be met at a lower level of care at this time due to need for interdisciplinary care including OT,PT, wound care, physician management and case management, and need for 3hr skilled rehab services daily to achieve return to PLOF within a reasonable time frame. OT RECOMMENDATIONS Discharge Destination Acute rehab Discharge Equipment Defer to facility Discharge Transportation Recommendations Wheelchair transport van/shuttle PLAN Continue with established OT plan of care 2 - 5 times per week to progress towards OT goals. OT GOALS OT GOAL DETAILS Goal Established Date Time Frame Goal Status OT Goal 1: Pt will complete toilet transfer with LRAD and complete other components of toileting (perineal care, clothing management, etc.) with min A. 07/13/25 2 weeks OT Goal 2: Pt will complete full body dressing routine using AD/AE PRN with min A. 07/13/25 2 weeks OT Goal 3: Pt will stand at sink to complete at least 3 consecutive grooming tasks with CGA. 07/13/25 2 weeks OT Goal 4: Pt will be independent with UB HEP in order to maximize strength necessary for engagement in valued ADLs. 07/13/25 2 weeks OT Goal 5: Pt will engage in short household distance ambulation necessary for participation in higher level ADLs using LRAD with CGA. 07/13/25 2 weeks Written by Candice Burden on 07/17/25 at 10:21 AM. * Progress Notes - [place] - 07/17/2025 10:02 AM EDT PHYSICAL THERAPY TREATMENT PATIENT DATA Patient Name Cristina Brown Session Date 07/17/2025 Total Treatment Time 79 min PT Discharge Recommendations Acute rehab PT Equipment Recommendations Defer to facility PRECAUTIONS Weight Bearing Precautions (if applicable) ROM Restrictions (if applicable) Medical Precautions Yes Medical Precautions: Fall precautions Medical Precautions: Patient has a large wound secondary to necrotizing fascitis on her RLE/groin/pubis/abdominal wall s/p multiple debridements and washout to subcutaneous tissue and muscle fascia. Patient currently does not have a wound vac on - therefore dressing at risk for falling off due to drainage when up mobilizing. HOME LIVING/SET-UP Lives With Significant other (fiance + his mother, god brother + his and dad) Home Type House Home Equipment None Home Layout Two level, Able to live on one level with bedroom/bathroom, Stairs to enter with rails 4 (center rail - but it's not very sturdy/stable per pt report) Bathroom Layout Tub/Shower combo, Handheld shower head Standard Accessible via walker Additional Comments Still driving, not working. Should have someone available to assist her at home, but dheeraj does work. PRIOR LEVEL OF FUNCTION Receives help from No assist required prior to admission Level of Mobility Ambulatory- community Mobility [place] Independent gait without device History of Falls No ( Not that I can remember. ) ADL Performance ADL Performance: Independent PRESENTATION Oxygen Oxygen Therapy: Supplemental oxygen O2 Delivery Method: Nasal cannula O2 Flow Rate (L/min): 1 L/min Lines and Tubes Negative Pressure Wound Therapy Leg Anterior;Right;Upper (Active) Peripheral IV 07/12/25 Right Forearm (Active) Pre-Session Lines intact, Sitting: edge of bed RN agreeable to therapy Post-Session Sitting in chair, Call light in reach, RN notified, Lines intact Pt positioned for comfort. All needs met/within reach. Chair alarm deferred. Bracing (if applicable) SUBJECTIVE PARTICIPANTS IN CARE Visitors Present No, Subjective Report Pt pleasant and cooperative. Agreeable to treatment. Pt states she HAS been: * Ambulating hallway distances * Ambulating in-room distances * Transferring Bed <> Chair since last PT treatment. Pt remains unaware when pt may be discharged from [facility]. Order Checker Packer Processer (if applicable) Not Applicable OBJECTIVE & INTERVENTIONS PAIN Pain Intensity / Location Pre-Mobility: 12/17 Pain Intensity / Location Post-Mobility: 05/16 (but pt with tears with mobility) Prior to PT's departure: * rest was provided * pt was positioned for comfort * RN was informed of pt's pain DELIRIUM SCREENING RASS: Alert and calm Feature 3: Altered Level of Consciousness: Negative Vital Signs During- and/or Post-Session Per nsg therapy attempted to wean supplemental O2 during session however with EOB balance SpO2 dropped to 89% without supplemental. Pt recovered quickly with breathing techniques and attempted standing without supplemental O2 but SpO2 dropped to 88%. Therapist donned 1L via NC for ambulation - pt'slowest observed SpO2 was 87% with 1L requiring standing rest break and recovery breathing. HR elevated to max 140 with ambulation. THERAPEUTIC ACTIVITY Treatment Minutes 79 Treatment Focus: All therapeutic activities were specifically prescribed to address the patient???simpairments and promote increased independence (IND) with functional tasks, in response to current functional decline. The ultimate goal is a full return to the patient???s prior level of function. PT Involvement: Physical therapist presence was essential for: Managing lines and equipment Monitoring vital sign stability Ensuring safety during mobility to minimize fall risk Assessing the patient???s ability to perform tasks and modifying interventions as needed Interventions & Patient Response: Therapist provided verbal and tactile cues to support sequencing, technique, hand placement and optimal performance, safety with progression to rollator Patient demonstrated positive response to cues related to safety, posture, and task sequencing Additional time was required for: Line management SpO2 and Heart rate recovery Room setup to ensure safe mobility Pt education for HEP, activity guidelines, d/c discussion Emotional support and discussion/recovery Final positioning for comfort and pressure relief SPPB testing to assess pt's true mobility BED MOBILITY Level of [place] Physical/Non- physical Assist Adaptive Equipment Utilized Rolling/ Turning Scooting/ Bridging Supine to Sit Modified [place] Bed rails Sit to Supine Interventions TRANSFERS Level of [place] Physical/Non- physical Assist Adaptive Equipment Utilized Sit to Stand Stand-by assist Supervision Rollator Stand to sit Stand-by assist Supervision Rollator Bed to Chair Toilet Transfer Shower Transfer Interventions BALANCE Postural Appearance Posture: Forward head, Rounded shoulders Level of [place] Balance Support Interventions Static Sit Standby assist Feet supported Dynamic Sit Contact guard Feet supported Dynamic Sitting-Balance: Lateral weight shifts, Anterior/Posterior weight shifts Static Stand Contact guard Right upper extremity support, Left upper extremity support Standing in room prior to ambulation Dynamic Stand Contact guard Right upper extremity support, Left upper extremity support 3 bouts of approx 1 min each AMBULATION Level of [place] Distance Adaptive Equipment Utilized Ambulation Contact guard assist, Minimal verbal cues Pt able to ambulate bouts of 30' prior to desaturating and needing standing rest/cues for breathing. Rollator (andrea) Comments Pt demonstrates slow leonora, decreased step length, dependence of RW to unweight right LEsecondary to pain. PT presence was necessary for: * managing lines * progressing patient ambulation distances * monitoring patient vital sign stability * decreasing patient's risk of falling while progressing pt's distances * assessing patient readiness for decreasing support requirements from assistive devices Standardized Assessments Standardized Assessments Standardized Assessments: SPPB Short Physical Performance Battery Short Physical Performance Battery: Performed Balance Score: 1: Side by side stance for 10 sec but unable to hold semitandem Walk Score (4 Meter Walk): 1: If time is more than 8.70 sec Chair Stand Score: 1: If chair stand time is 16.7 sec or more Total Score: 3 ASSESSMENT Patient put forth good effort during all activities but needed extra time for recovery between bouts due to SOB and pain. Pt is improving, as noted by: less assistance was required for pt to completetransfers, pt demonstrated improved sitting and standing balance, and pt ambulated increased walking distances and with less assistance during this PT treatment compared to last PT treatment. Increased time required during treatment session to allow for rest breaks, line management/organization, and to allow patient time to debrief regarding current medical situation. Pt had periods of emotional distress over recovery, mobility, ability to manage wound healing and overall health status. PT provided extra education regarding each of these concerns to assist with reassuring patient and providing skills needed for maximal recovery. Patient was also educated regarding PT POC, discharge planning, the benefits of mobility and HEP to improve strength and functional endurance. Patient is currently requiring more assistance for all mobility compared to baseline making patient unsafe to return home due to increased risk of falls and re-hospitalization (SPPB score 3). Patient would benefit from continued skilled PT during the remainder of hospital stay to address identified impairments for improved functional mobility and improved activity tolerance. Pt has the following impairments: impaired activity tolerance, gross functional weakness, impaired balance, and pain, which is limiting the pt from performing independent functional mobility. Patient may benefit from Acute Rehab for the following reasons: Pt remains as a high fall risk and is unsafe for discharge to home Pt ambulates at a slow pace and cannot perform ADL and iADLs functionally without prolonged rests Pt has stairs that pt cannot negotiate safely Pt would benefit from further instruction improving functional transfers and ambulation Pt would likely benefit from a short Acute Rehab stay where patient could become more independent performing transfers and ambulating Pt would likely benefit more from Acute Rehab than other rehab services due to pt's medical acuity,level of immobility, and need for improved safety prior to returning home. Pt would likely progress independence of functional mobility towards PLOF with 3 hours of therapy daily, which is unable to be provided in the subacute rehab or acute care hospital settings. PT RECOMMENDATIONS Discharge Destination Acute rehab Discharge Equipment Defer to facility PLAN Pt may continue to benefit from skilled PT for addressing patient's impairments and reducing patient's participation restrictions and activity limitations. PT GOALS PT GOAL DETAILS DATE ASSESSED STATUS PROGRESS PT Goal 1: Patient will be CGA with bed mobility to ease caregiver burden. PT Goal 1 Established Date: 07/13/25 PT Goal 1 Time Frame: 2 weeks PT Goal 2: Patient will transfer sit < > stand with SBA and least assistive device to ease caregiver burden. PT Goal 2 Established Date: 07/13/25 PT Goal 2 Time Frame: 2 weeks PT Goal 3: Patient will ambulate 150' with least assistive device CGA for household distances. PT Goal 3 Established Date: 07/13/25 PT Goal 3 Time Frame: 2 weeks PT Goal 4: Patient will ascend/descend 4 stairs with 1 rail Min A to access home. (ONLY IF D/C HOME) PT Goal 4 Established Date: 07/13/25 PT Goal 4 Time Frame: 2 weeks Written by Polina Beach on 07/17/25 at 10:24 AM. * Care Plan - Eulalia Esrtada RN - 07/17/2025 6:11 AM EDT Problem: Adult Inpatient Plan of Care Goal: Plan of Care Review Outcome: Ongoing, Progressing Flowsheets Taken 07/17/2025 0608 Progress: improving Taken 07/16/2025 0129 Plan of Care Reviewed With: patient Goal: Patient-Specific Goal (Individualized) Outcome: Ongoing, Progressing Flowsheets (Taken 07/16/20252024) Patient/Family-Specific Goals (Include Timeframe): pt will remain free from falls and injury throughout shift Individualized Care Needs: safety Anxieties, Fears or Concerns: discharge Note: Bed in low position, clutter free environment, call light within reach Goal: Absence of Hospital-Acquired Illness or Injury Outcome: Ongoing, Progressing Intervention: Identify and Manage Fall Risk Flowsheets (Taken 07/17/2025 0450) Safety Promotion/Fall Prevention: activity supervised assistive device/personal items within reach clutter-free environment maintained fall prevention program maintained nonskid shoes/slippers when out of bed room organization consistent safety round/check completed Intervention: Prevent Skin Injury Flowsheets Taken 07/16/2025 2200 by Eulalia Estrada RN Body Position: heels elevated legs elevated Taken 07/16/2025 0635 by Yessenia Ramirez Skin Protection: (rue) pulse oximeter probe site changed Intervention: Prevent and Manage VTE (Venous Thromboembolism) Risk Flowsheets (Taken 07/17/2025 0450) VTE Prevention/Management: medication Intervention: Prevent Infection Flowsheets (Taken 07/16/2025 012) Infection Prevention: hand hygiene promoted rest/sleep promoted single patient room provided environmental surveillance performed equipment surfaces disinfected personal protective equipment utilized Goal: Optimal Comfort and Wellbeing Outcome: Ongoing, Progressing Intervention: Monitor Pain and Promote Comfort Flowsheets (Taken 07/16/2025 012) Pain Management Interventions: (care plan) pillow support provided position adjusted rest medication offered but refused awakened for pain meds per patient request care clustered quiet environment facilitated relaxation techniques promoted Intervention: Provide Person-Centered Care Flowsheets (Taken 07/14/2025 1800 by Josi Ann RN) Trust Relationship/Rapport: care explained choices provided emotional support provided empathic listening provided questions answered questions encouraged reassurance provided thoughts/feelings acknowledged Problem: Mechanical Ventilation Invasive Goal: Optimal Nutrition Delivery Outcome: Met Problem: Skin Injury Risk Increased Goal: Skin Health and Integrity Outcome: Ongoing, Progressing Intervention: Optimize Skin Protection Flowsheets Taken 07/17/2025449 by Eulalia Estrada RN Activity Management: activity adjusted per tolerance Head of Bed (HOB) Positioning: HOB elevated Taken 07/16/2025 0635 by Yessenia Ramirez Skin Protection: (rue) pulse oximeter probe site changed Taken 07/16/2025128 by Eulalia Estrada RN Pressure Reduction Techniques: frequent weight shift encouraged heels elevated off bed Pressure Reduction Devices: positioning supports utilized Intervention: Promote and Optimize Oral Intake Flowsheets Taken 07/16/2025128 by Eulalia Estrada RN Oral Nutrition Promotion: adaptive equipment use encouraged rest periods promoted Taken 07/14/2025 1800 by Josi nAn RN Nutrition Interventions: frequent small meals provided supplemental drinks provided Problem: Infection Goal: Absence of Infection Signs and Symptoms Outcome: Ongoing, Progressing Intervention: Prevent or Manage Infection Flowsheets Taken 07/17/2025 045 by Eulalia Estrada RN Isolation Precautions: precautions maintained Taken 07/16/2025128 by Eulalia Estrada RN Fever Reduction/Comfort Measures: lightweight clothing Taken 07/15/2025 1325 by Sophia Salazar RN Infection Management: aseptic technique maintained Problem: Fall Injury Risk Goal: Absence of Fall and Fall-Related Injury Outcome: Ongoing, Progressing Intervention: Identify and Manage Contributors Flowsheets Taken 07/16/2025128 by Eulalia Estrada RN Self-Care Promotion: independence encouraged BADL personal objects within reach BADL personal routines maintained adaptive equipment use encouraged Taken 07/14/2025 1800 by Josi Ann glove parts cutter Review/Management: medications reviewed Intervention: Promote Injury-Free Environment Flowsheets (Taken 07/17/2025 045) Safety Promotion/Fall Prevention: activity supervised assistive device/personal items within reach clutter-free environment maintained fall prevention program maintained nonskid shoes/slippers when out of bed room organization consistent safety round/check completed Problem: Self-Care Deficit Goal: Improved Ability to Complete Activities of Daily Living Outcome: Ongoing, Progressing Intervention: Promote Activity and Functional [place] Flowsheets Taken 07/16/2025 0635 by Yessenia Ramirez Activity Assistance Provided: assistance, stand-by Taken 07/16/2025128 by Eulalia Estrada RN Self-Care Promotion: independence encouraged BADL personal objects within reach BADL personal routines maintained adaptive equipment use encouraged Taken 07/14/2025 2311 by Rita Alejandro RN Adaptive Equipment Use: long-handled shoe horn Problem: Wound Goal: Optimal Coping Outcome: Ongoing, Progressing Intervention: Support Patient and Family Response Flowsheets Taken 07/16/2025128 by Eulalia Estrada RN Supportive Measures: active listening utilized verbalization of feelings encouraged problem-solving facilitated relaxation techniques promoted Taken 07/14/2025 1800 by Josi Ann deputy fire marshal/Support System Care: support provided Goal: Optimal Functional Ability Outcome: Ongoing, Progressing Intervention: Optimize Functional Ability Flowsheets Taken 07/17/2025 045 by Eulalia Estrada RN Activity Management: activity adjusted per tolerance Taken 07/16/2025 0635 by Yessenia Ramirez Activity Assistance Provided: assistance, stand-by Assistive Device Utilized: standard walker Goal: Absence of Infection Signs and Symptoms Outcome: Ongoing, Progressing Intervention: Prevent or Manage Infection Flowsheets Taken 07/17/2025 045 by Eulalia Estrada RN Isolation Precautions: precautions maintained Taken 07/16/2025128 by Eulalia Estrada RN Fever Reduction/Comfort Measures: lightweight clothing Taken 07/15/2025 1325 by Sophia Salazar RN Infection Management: aseptic technique maintained Goal: Improved Oral Intake Outcome: Ongoing, Progressing Intervention: Promote and Optimize Oral Intake Flowsheets Taken 07/16/2025 1808 by Isha Colunga RN Nutrition Support Management: weight trending reviewed Taken 07/16/2025 012 by Eulalia Estrada RN Oral Nutrition Promotion: adaptive equipment use encouraged rest periods promoted Taken 07/14/2025 1800 by Josi Ann RN Nutrition Interventions: frequent small meals provided supplemental drinks provided Goal: Optimal Pain Control and Function Outcome: Ongoing, Progressing Intervention: Prevent or Manage Pain Flowsheets Taken 07/16/2025 1810 by Isha Colunga RN Sleep/Rest Enhancement: regular sleep/rest pattern promoted Taken 07/16/2025128 by Eulalia Estrada RN Pain Management Interventions: (care plan) pillow support provided position adjusted rest medication offered but refused awakened for pain meds per patient request care clustered quiet environment facilitated relaxation techniques promoted Goal: Skin Health and Integrity Outcome: Ongoing, Progressing Intervention: Optimize Skin Protection Flowsheets Taken 07/17/2025 0450 by Eulalia Estrada RN Activity Management: activity adjusted per tolerance Head of Bed (HOB) Positioning: HOB elevated Taken 07/16/2025 012 by Eulalia Estrada RN Pressure Reduction Techniques: frequent weight shift encouraged heels elevated off bed Pressure Reduction Devices: positioning supports utilized Taken 07/14/2025 1800 by Josi Ann RN Skin Protection: frequent weight shift encouraged weight shift assistance provided incontinence pads utilized Goal: Optimal Wound Healing Outcome: Ongoing, Progressing Intervention: Promote Wound Healing Flowsheets (Taken 07/16/2025 181 by Isha Colunga RN) Sleep/Rest Enhancement: regular sleep/rest pattern promoted * Care Plan - Denia Boo RN - 07/16/2025 6:38 PM EDT Problem: Adult Inpatient Plan of Care Goal: Plan of Care Review Outcome: Ongoing, Progressing Flowsheets (Taken 07/16/2025128 by Estrada, Eulalia J, RN) Progress: improving Plan of Care Reviewed With: patient Goal: Patient-Specific Goal (Individualized) Outcome: Ongoing, Progressing Flowsheets (Taken 07/16/2025 0900) Patient/Family-Specific Goals (Include Timeframe): patient will be able to report a pain less than 5 for the entire shift Individualized Care Needs: pain management Anxieties, Fears or Concerns: pain Goal: Absence of Hospital-Acquired Illness or Injury Outcome: Ongoing, Progressing Intervention: Identify and Manage Fall Risk Flowsheets (Taken 07/16/2025 1700 by Diego Munroe) Safety Promotion/Fall Prevention: safety round/check completed nonskid shoes/slippers when out of bed mobility aid in reach room organization consistent clutter-free environment maintained assistive device/personal items within reach Intervention: Prevent Skin Injury Flowsheets Taken 07/16/2025 1700 by Denia Boo RN Body Position: weight shifting Taken 07/16/2025 0635 by Yessenia Ramirez Skin Protection: (rue) pulse oximeter probe site changed Intervention: Prevent and Manage VTE (Venous Thromboembolism) Risk Flowsheets (Taken 07/16/2025 0640 by Eulalia Estrada, NAHID) VTE Prevention/Management: medication Intervention: Prevent Infection Flowsheets (Taken 07/16/2025 0129 by Eulalia Estrada, RN) Infection Prevention: hand hygiene promoted rest/sleep promoted single patient room provided environmental surveillance performed equipment surfaces disinfected personal protective equipment utilized Goal: Optimal Comfort and Wellbeing Outcome: Ongoing, Progressing Intervention: Monitor Pain and Promote Comfort Flowsheets (Taken 07/16/2025 0129 by Eulalia Estrada, RN) Pain Management Interventions: (care plan) pillow support provided position adjusted rest medication offered but refused awakened for pain meds per patient request care clustered quiet environment facilitated relaxation techniques promoted Intervention: Provide Person-Centered Care Flowsheets (Taken 07/14/2025 1800 by Josi Ann RN) Trust Relationship/Rapport: care explained choices provided emotional support provided empathic listening provided questions answered questions encouraged reassurance provided thoughts/feelings acknowledged Problem: Mechanical Ventilation Invasive Goal: Optimal Nutrition Delivery Outcome: Ongoing, Progressing Intervention: Optimize Nutrition Delivery Flowsheets (Taken 07/16/2025 1808 by Isha Colunga RN) Nutrition Support Management: weight trending reviewed Problem: Skin Injury Risk Increased Goal: Skin Health and Integrity Outcome: Ongoing, Progressing Intervention: Optimize Skin Protection Flowsheets Taken 07/16/2025 1808 by Isha Colunga RN Activity Management: ambulated to bathroom Taken 07/16/2025 1700 by Denia Boo RN Head of Bed (HOB) Positioning: HOB elevated Taken 07/16/2025 0635 by Yessenia Ramirez Skin Protection: (rue) pulse oximeter probe site changed Taken 07/16/2025 012 by Eulalia Estrada RN Pressure Reduction Techniques: frequent weight shift encouraged heels elevated off bed Pressure Reduction Devices: positioning supports utilized Intervention: Promote and Optimize Oral Intake Flowsheets Taken 07/16/2025 012 by Eulalia Estrada RN Oral Nutrition Promotion: adaptive equipment use encouraged rest periods promoted Taken 07/14/2025 1800 by Josi Ann RN Nutrition Interventions: frequent small meals provided supplemental drinks provided Problem: Infection Goal: Absence of Infection Signs and Symptoms Outcome: Ongoing, Progressing Intervention: Prevent or Manage Infection Flowsheets Taken 07/16/2025 0900 by Denia Boo RN Isolation Precautions: precautions maintained Taken 07/16/2025 012 by Eulalia Estrada RN Fever Reduction/Comfort Measures: lightweight clothing Taken 07/15/2025 1325 by Sophia Salazar RN Infection Management: aseptic technique maintained Problem: Fall Injury Risk Goal: Absence of Fall and Fall-Related Injury Outcome: Ongoing, Progressing Intervention: Identify and Manage Contributors Flowsheets Taken 07/16/2025 012 by Eulalia Estrada RN Self-Care Promotion: independence encouraged BADL personal objects within reach BADL personal routines maintained adaptive equipment use encouraged Taken 07/14/2025 1800 by Josi Ann RN Medication Review/Management: medications reviewed Intervention: Promote Injury-Free Environment Flowsheets (Taken 07/16/2025 1700 by Diego Munroe) Safety Promotion/Fall Prevention: safety round/check completed nonskid shoes/slippers when out of bed mobility aid in reach room organization consistent clutter-free environment maintained assistive device/personal items within reach Problem: Self-Care Deficit Goal: Improved Ability to Complete Activities of Daily Living Outcome: Ongoing, Progressing Intervention: Promote Activity and Functional [place] Flowsheets Taken 07/16/2025 0635 by Yessenia Ramirez Activity Assistance Provided: assistance, stand-by Taken 07/16/2025 012 by Eulalia Estrada RN Self-Care Promotion: independence encouraged BADL personal objects within reach BADL personal routines maintained adaptive equipment use encouraged Taken 07/14/2025 2311 by Rita Alejandro RN Adaptive Equipment Use: long-handled shoe horn Problem: Wound Goal: Optimal Coping Outcome: Ongoing, Progressing Intervention: Support Patient and Family Response Flowsheets Taken 07/16/2025 012 by Eulalia Estrada RN Supportive Measures: active listening utilized verbalization of feelings encouraged problem-solving facilitated relaxation techniques promoted Taken 07/14/2025 1800 by Josi Ann deputy fire marshal/Support System Care: support provided Goal: Optimal Functional Ability Outcome: Ongoing, Progressing Intervention: Optimize Functional Ability Flowsheets Taken 07/16/2025 1808 by Isha Colunga RN Activity Management: ambulated to bathroom Taken 07/16/2025 0635 by Yessenia Ramirez Activity Assistance Provided: assistance, stand-by Assistive Device Utilized: standard walker Goal: Absence of Infection Signs and Symptoms Outcome: Ongoing, Progressing Intervention: Prevent or Manage Infection Flowsheets Taken 07/16/2025 0900 by Denia Boo RN Isolation Precautions: precautions maintained Taken 07/16/2025128 by Eulalia Estrada RN Fever Reduction/Comfort Measures: lightweight clothing Taken 07/15/2025 1325 by Sophia Salazar RN Infection Management: aseptic technique maintained Goal: Improved Oral Intake Outcome: Ongoing, Progressing Intervention: Promote and Optimize Oral Intake Flowsheets Taken 07/16/2025 1808 by Isha Colunga RN Nutrition Support Management: weight trending reviewed Taken 07/16/2025128 by Eulalia Estrada RN Oral Nutrition Promotion: adaptive equipment use encouraged rest periods promoted Taken 07/14/2025 1800 by Josi Ann RN Nutrition Interventions: frequent small meals provided supplemental drinks provided Goal: Optimal Pain Control and Function Outcome: Ongoing, Progressing Intervention: Prevent or Manage Pain Flowsheets Taken 07/16/2025 1810 by Isha Colunga RN Sleep/Rest Enhancement: regular sleep/rest pattern promoted Taken 07/16/2025128 by Eulalia Estrada RN Pain Management Interventions: (care plan) pillow support provided position adjusted rest medication offered but refused awakened for pain meds per patient request care clustered quiet environment facilitated relaxation techniques promoted Goal: Skin Health and Integrity Outcome: Ongoing, Progressing Intervention: Optimize Skin Protection Flowsheets Taken 07/16/2025 180 by Isha Colunga RN Activity Management: ambulated to bathroom Taken 07/16/2025 1700 by Denia Boo RN Head of Bed (HOB) Positioning: HOB elevated Taken 07/16/2025 012 by Eulalia Estrada RN Pressure Reduction Techniques: frequent weight shift encouraged heels elevated off bed Pressure Reduction Devices: positioning supports utilized Taken 07/14/2025 1800 by Josi Ann RN Skin Protection: frequent weight shift encouraged weight shift assistance provided incontinence pads utilized Goal: Optimal Wound Healing Outcome: Ongoing, Progressing Intervention: Promote Wound Healing Flowsheets (Taken 07/16/20251809 by Isha Colunga RN) Sleep/Rest Enhancement: regular sleep/rest pattern promoted * Care Plan - Isha Colunga RN - 07/16/2025 6:13 PM EDT Problem: Adult Inpatient Plan of Care Goal: Plan of Care Review 07/16/20251809 by Isha Colunga RN Flowsheets (Taken 07/16/2025 012 by Eulalia Estrada RN) Progress: improving Plan of Care Reviewed With: patient 07/16/20251807 by Isha Colunga RN Outcome: Ongoing, Progressing Flowsheets (Taken 07/16/2025 012 by Eulalia Estrada RN) Progress: improving Plan of Care Reviewed With: patient Goal: Patient-Specific Goal (Individualized) 07/16/20251809 by Isha Colunga RN Flowsheets (Taken 07/16/2025 09 by Denia Boo RN) Patient/Family-Specific Goals (Include Timeframe): patient will be able to report a pain less than 5 for the entire shift Individualized Care Needs: pain management Anxieties, Fears or Concerns: pain 07/16/20251807 by Isha Colunga RN Outcome: Ongoing, Progressing Flowsheets (Taken 07/16/2025 0900 by Denia Boo RN) Patient/Family-Specific Goals (Include Timeframe): patient will be able to report a pain less than 5 for the entire shift Individualized Care Needs: pain management Anxieties, Fears or Concerns: pain Goal: Absence of Hospital-Acquired Illness or Injury Outcome: Ongoing, Progressing Intervention: Identify and Manage Fall Risk 07/16/2025 181 by Isha Colunga RN Flowsheets (Taken 07/16/2025 1700 by Diego Munroe) Safety Promotion/Fall Prevention: safety round/check completed nonskid shoes/slippers when out of bed mobility aid in reach room organization consistent clutter-free environment maintained assistive device/personal items within reach 07/16/2025 1808 by Isha Colunga RN Flowsheets (Taken 07/16/2025 1700 by Diego Munroe) Safety Promotion/Fall Prevention: safety round/check completed nonskid shoes/slippers when out of bed mobility aid in reach room organization consistent clutter-free environment maintained assistive device/personal items within reach Intervention: Prevent Skin Injury 07/16/2025 181 by Isha Colunga RN Flowsheets (Taken 07/16/2025 1700 by Denia Boo RN) Body Position: weight shifting 07/16/2025 180 by Isha Colunga RN Flowsheets (Taken 07/16/2025 1700 by Denia Boo RN) Body Position: weight shifting Intervention: Prevent and Manage VTE (Venous Thromboembolism) Risk 07/16/2025 181 by Isha Colunga RN Flowsheets (Taken 07/16/2025 0640 by Eulalia Estrada RN) VTE Prevention/Management: medication 07/16/2025 180 by Isha Colunga RN Flowsheets (Taken 07/16/2025 0640 by Eulalia Estrada RN) VTE Prevention/Management: medication Intervention: Prevent Infection 07/16/20251809 by Isha Colunga RN Flowsheets (Taken 07/16/2025 0129 by Estrada, Eulalia J, RN) Infection Prevention: hand hygiene promoted rest/sleep promoted single patient room provided environmental surveillance performed equipment surfaces disinfected personal protective equipment utilized 07/16/2025 1808 by Isha Colunga RN Flowsheets (Taken 07/16/2025 012 by Eulalia Estrada RN) Infection Prevention: hand hygiene promoted rest/sleep promoted single patient room provided environmental surveillance performed equipment surfaces disinfected personal protective equipment utilized Goal: Optimal Comfort and Wellbeing Outcome: Ongoing, Progressing Intervention: Monitor Pain and Promote Comfort 07/16/2025 1810 by Isha Colunga RN Flowsheets (Taken 07/16/2025 012 by Eulalia Estrada RN) Pain Management Interventions: (care plan) pillow support provided position adjusted rest medication offered but refused awakened for pain meds per patient request care clustered quiet environment facilitated relaxation techniques promoted 07/16/2025 180 by Isha Colunga RN Flowsheets (Taken 07/16/2025 012 by Eulalia Estrada RN) Pain Management Interventions: (care plan) pillow support provided position adjusted rest medication offered but refused awakened for pain meds per patient request care clustered quiet environment facilitated relaxation techniques promoted Intervention: Provide Person-Centered Care 07/16/2025 181 by Isha Colunga RN Flowsheets (Taken 07/14/2025 1800 by Josi Ann RN) Trust Relationship/Rapport: care explained choices provided emotional support provided empathic listening provided questions answered questions encouraged reassurance provided thoughts/feelings acknowledged 07/16/2025 180 by Isha Colunga RN Flowsheets (Taken 07/14/2025 1800 by Josi Ann RN) Trust Relationship/Rapport: care explained choices provided emotional support provided empathic listening provided questions answered questions encouraged reassurance provided thoughts/feelings acknowledged Problem: Mechanical Ventilation Invasive Goal: Optimal Nutrition Delivery Outcome: Ongoing, Progressing Intervention: Optimize Nutrition Delivery 07/16/2025 181 by Isha Colunga RN Flowsheets (Taken 07/16/2025 1808) Nutrition Support Management: weight trending reviewed 07/16/2025 180 by Isha Colunga RN Flowsheets (Taken 07/16/2025 1808) Nutrition Support Management: weight trending reviewed Problem: Skin Injury Risk Increased Goal: Skin Health and Integrity Outcome: Ongoing, Progressing Intervention: Optimize Skin Protection 07/16/2025 1810 by Isha Colunga RN Flowsheets (Taken 07/16/2025 1808) Activity Management: ambulated to bathroom 07/16/2025 1808 by Isha Colunga RN Flowsheets (Taken 07/16/2025 1808) Activity Management: ambulated to bathroom Intervention: Promote and Optimize Oral Intake 07/16/2025 181 by Isha Colunga RN Flowsheets (Taken 07/16/2025 012 by Eulalia Estrada, RN) Oral Nutrition Promotion: adaptive equipment use encouraged rest periods promoted 07/16/2025 180 by Isha Colunga RN Flowsheets (Taken 07/14/2025 1800 by Josi Ann, RN) Nutrition Interventions: frequent small meals provided supplemental drinks provided Problem: Infection Goal: Absence of Infection Signs and Symptoms Outcome: Ongoing, Progressing Intervention: Prevent or Manage Infection 07/16/2025 181 by Isha Colunga RN Flowsheets Taken 07/16/2025 0900 by Denia Boo RN Isolation Precautions: precautions maintained Taken 07/15/2025 1325 by Sophia Salazar RN Infection Management: aseptic technique maintained 07/16/2025 180 by Isha Colunga RN Flowsheets (Taken 07/15/2025 1325 by Sophia Salazar, NAHID) Infection Management: aseptic technique maintained Problem: Fall Injury Risk Goal: Absence of Fall and Fall-Related Injury Outcome: Ongoing, Progressing Intervention: Identify and Manage Contributors 07/16/20251809 by Isha Colunga RN Flowsheets (Taken 07/16/2025 0129 by Eulalia Estrada RN) Self-Care Promotion: independence encouraged BADL personal objects within reach BADL personal routines maintained adaptive equipment use encouraged 07/16/2025 180 by Isha Colunga RN Flowsheets (Taken 07/14/2025 1800 by Josi Ann RN) Medication Review/Management: medications reviewed Problem: Self-Care Deficit Goal: Improved Ability to Complete Activities of Daily Living Outcome: Ongoing, Progressing Intervention: Promote Activity and Functional [place] Flowsheets (Taken 07/16/2025 012 by Eulalia Estrada, NAHID) Self-Care Promotion: independence encouraged BADL personal objects within reach BADL personal routines maintained adaptive equipment use encouraged Problem: Wound Goal: Optimal Coping Outcome: Ongoing, Progressing Intervention: Support Patient and Family Response Flowsheets (Taken 07/16/2025 012 by Eulalia Estrada, RN) Supportive Measures: active listening utilized verbalization of feelings encouraged problem-solving facilitated relaxation techniques promoted Goal: Optimal Functional Ability Outcome: Ongoing, Progressing Intervention: Optimize Functional Ability Flowsheets (Taken 07/16/2025 0635 by Yessenia Ramirez) Activity Assistance Provided: assistance, stand-by Goal: Absence of Infection Signs and Symptoms Outcome: Ongoing, Progressing Intervention: Prevent or Manage Infection Flowsheets (Taken 07/15/2025 1325 by Sophia Salazar, RN) Infection Management: aseptic technique maintained Goal: Improved Oral Intake Outcome: Ongoing, Progressing Intervention: Promote and Optimize Oral Intake Flowsheets (Taken 07/16/2025 1808) Nutrition Support Management: weight trending reviewed Goal: Optimal Pain Control and Function Outcome: Ongoing, Progressing Intervention: Prevent or Manage Pain Flowsheets Taken 07/16/2025 1810 by Isha Colunga RN Sleep/Rest Enhancement: regular sleep/rest pattern promoted Taken 07/16/2025 012 by Eulalia Estrada RN Pain Management Interventions: (care plan) pillow support provided position adjusted rest medication offered but refused awakened for pain meds per patient request care clustered quiet environment facilitated relaxation techniques promoted Goal: Skin Health and Integrity Outcome: Ongoing, Progressing Intervention: Optimize Skin Protection Flowsheets (Taken 07/16/2025 1808) Activity Management: ambulated to bathroom Goal: Optimal Wound Healing Outcome: Ongoing, Progressing Intervention: Promote Wound Healing Flowsheets (Taken 07/16/2025 1810) Sleep/Rest Enhancement: regular sleep/rest pattern promoted * Progress Notes - Annie Littlejohn - 07/16/2025 3:01 PM EDT SW received call from Multi Needle Machine Operator offering assistance for d/c planning. Her Callback #[phone] * Progress Notes - Daisy Sherrill Elva, MATCHING MACHINE OPERATOR - 07/16/2025 8:59 AM EDT Endocrine - Diabetes Consult follow-up: Subjective: 24 hour update: -AM BG 172 -patient not available during rounds I have reviewed the patient's blood glucose levels, labs, vitals, and insulin doses administered inthe electronic medical record. Objective: BP 117/76 (BP Location: Left arm, Patient Position: Sitting) Pulse (!) 121 Temp 36.6 ??C (97.8 ??F) (Oral) Resp 18 Ht 1.778 m (5' 10 ) Wt 181 kg (398 lb 2.4 oz) BMI 57.13 kg/m?? Medications: Current Scheduled Medications[1] Current Continuous Medications[2] Current PRN Medications[3] Diet Dietary Orders (From admission, onward) Start Ordered 07/15/25 1200 Adult diet Diet texture: Regular; Carbohydrate restriction: Consistent Carb 2 (80 gm max/meal); Modified Calorie/Protein: High Calorie, High Protein; Other restriction(s): Gluten Free (Adult Diet Panel) Diet effective now References: IDDSI Diet Texture Guide Question Answer Comment Diet texture Regular Carbohydrate restriction: Consistent Carb 2 (80 gm max/meal) Modified Calorie/Protein: High Calorie, High Protein Other restriction(s): Gluten Free 07/15/25 1159 Lab Review: Results from last 7 days Lab Units 07/16/25 0525 SODIUM mmol/L 140 POTASSIUM mmol/L 3.4* CHLORIDE mmol/L 99 CO2 mmol/L 31* BUN mg/dL 9 CREATININE mg/dL 0.48* EGFR mL/min/1.73m*2 116.3 GLUCOSE mg/dL 149* CALCIUM mg/dL 8.6* Results from last 7 days Lab Units 07/16/25 0525 WBC 10*3/uL 22.22* HEMOGLOBIN g/dL 8.9* HEMATOCRIT % 28.9* PLATELETS 10*3/uL 376* Lab Results Component Value Date GLUCOSE 149 (H) 07/16/2025 GLUCOSE 150 (H) 07/15/2025 GLUCOSE 191 (H) 07/14/2025 PGLU 150 (H) 07/16/2025 PGLU 172 (H) 07/16/2025 PGLU 173 (H) 07/15/2025 PGLU 234 (H) 07/15/2025 PGLU 153 (H) 07/15/2025 PGLU 132 (H) 07/15/2025 PGLU 175 (H) 07/14/2025 PGLU 154 (H) 07/14/2025 I reviewed bg tracing in epic glucose timeline 07/16/25 ASSESSMENT Hospital Course: Cristina Brown is a 50 y.o. female with hx of type 2 DM, morbid obesity, hidradenitis supparativa, current smoker (1.5 ppd), hx of absent seizures, UTI, depression, anxiety, asthma, HLD, celiac disease who initially came to [facility] on 07/08/2025 as transfer with concern for sepsis from necrotizing fascitis of RLE. - 07/09: debridement of necrotizing fasciitis in right lower extremity, groin, pubis, and abdominalwall of skin, subcutaneous tissue, and muscle fascia - 07/10: repeat irrigation and debridement of RLE necrotizing fasciitis - 07/11: wound washout, no debridement necessary Daily Glucose and Insulin Total Daily Dose -admitted 07/08 -consulted 07/15 BG 132-234 TDD 13 units -A1c: Lab Results Component Value Date HGBA1C 7.5 (H) 07/09/2025 -Diet: gluten free diet -Steroids: none Diagnoses #Sepsis from necrotizing fascitis #Celiac disease - chronic, stable without current active symptoms #Morbid Obesity BMI 57.13 -complicates all aspects of care -contributes to insulin resistance #diabetes mellitus - type 2 #hyperglycemia -A1C 7.5 -Home medications: Non insulin diabetes medications at home : Metformin 500mg BID w meals Failed/Discontinued meds:Ozempic 0.25 mg discontinued due to constipation and dyspepsia -see inpatient diabetes plan of care below PLAN: Primary team requesting recommendations and orders -After review of glucose trends and insulin delivery over the last 24 hours, no changes were made as overall good glycemic control on current insulin regimen Current Hospital Regimen: Insulin regimen: Basal: 10 units , glargine, nightly Bolus: continue to assess need Correction: standard dosing 1:50>150 lispro at mealtimes; 1:50>250 lispro bedtime, 3am PRN -Continue intensive glucose monitoring due to increased risk for hyper/hypoglycemia secondary to insulin therapy -Will continue to assess blood glucose trends and adjust basal/bolus insulin therapy dose according -fsbg ac/hs when eating, q6h when NPO, on TF/TPN -correction insulin to be given for hyperglycemia, do not hold correction if patient does not eat. -hypoglycemia protocol in place -Please document the percentage of meals consumed in intake and output flowsheet. -please notify us when diet orders change or steroids added as this impacts our tx Discharge planning -Diabetes education: continue to assess need - if insulin is needed, patient would benefit from diabetes education -Follow-up plan: patient would like to establish care with endocrine provider in [place], [place]. --> Provided patient with address and number of clinic. [[facility] End[facility] in the [facility] Physician Building]. -Tentative discharge recommendations: Likely resume home metformin Need for insulin therapy - TBD - if insulin is needed, patient would benefit from diabetes education Check glucose before meals and at bedtime, check as needed for symptoms of hypoglycemia and hyperglycemia. May substitute for therapeutic equivalent per insurance and retail PharmD approval -Supplies/scripts needed: Ensure patient has working glucose meter and supplies DM/Endo team will continue to follow. Please notify us as patient nears discharge for final recommendations Please contact Sherrill Villa APRN [place] Adult Inpatient Diabetes team via secure chat orpage us at [phone] during 7a-7p, Tuesday-Tuesday. For after hours please contact the on-call Endocrine Fellow. Thank you for the opportunity to participate in this patient's care. [1] acetaminophen, 1,000 mg, Oral, q6h MARIBELL busPIRone, 15 mg, Oral, BID DULoxetine, 60 mg, Oral, Daily enoxaparin, 40 mg, Subcutaneous, BID insulin glargine-yfgn, 10 Units, Subcutaneous, Nightly insulin lispro, 0-5 Units, Subcutaneous, TID with meals insulin lispro, 0-3 Units, Subcutaneous, Twice at night ipratropium-albuterol, 3 mL, Nebulization, q6h RT Jose, 1 packet, Oral, BID lamoTRIgine, 100 mg, Oral, Nightly methocarbamol, 750 mg, Oral, TID metoprolol succinate XL, 100 mg, Oral, Nightly polyethylene glycol, 17 g, Oral, Daily rosuvastatin, 20 mg, Oral, Nightly senna-docusate, 1 tablet, Oral, BID sodium chloride, 10 mL, Intravenous, q12h [2] [3] PRN medications: busPIRone, [DISCONTINUED] glucose OR dextrose 10 % OR dextrose 10 % OR glucagon (human recombinant), ondansetron ODT OR ondansetron OR [DISCONTINUED] ondansetron, oxyCODONE OR oxyCODONE * Assessment & Plan Note - Jason Andre MD - 07/16/2025 6:52 AM EDT Associated Problem(s): Necrotizing fasciitis ([facility]) - 07/09: debridement of necrotizing fasciitis in right lower extremity, groin, pubis, and abdominalwall of skin, subcutaneous tissue, and muscle fascia - 07/10: repeat irrigation and debridement of RLE necrotizing fasciitis - 07/11: wound washout, no debridement necessary Admitted to ICU for postoperative monitoring. - 07/13: Downgraded to floor On IV Linezolid Daily dressing changes, PRN Dilaudid available. Possibly d/c Linezolid pending wound eval PT/OT eval pending * Assessment & Plan Note - Jason Andre MD - 07/16/2025 6:52 AM EDT Associated Problem(s): DM (diabetes mellitus) - Patient presenting with significant hyperglycemia, requiring an insulin drip on admission. - Currently off insulin drip Pharmacy to dose insulin Glargine 10U, Lispro correction and nighttime dosing. Carbohydrate restricted diet * Assessment & Plan Note - Jason Andre MD - 07/16/2025 6:52 AM EDT Associated Problem(s): Hidradenitis Follows with outpatient provider * Assessment & Plan Note - Jason Andre MD - 07/16/2025 6:52 AM EDT Associated Problem(s): Smoker - Patient smokes 0.5-1ppd. - Smoking cessation when appropriate. * Assessment & Plan Note - Jason Andre MD - 07/16/2025 6:52 AM EDT Associated Problem(s): Chronic obstructive pulmonary disease, unspecified Complicates care. Continue Albuterol and DuoNebs. 3L Nasal cannula, continue to wean as tolerated Monitor respiratory status clinically * Assessment & Plan Note - Jason Andre MD - 07/16/2025 6:52 AM EDT Associated Problem(s): HTN (hypertension), benign Restart home meds as appropriate * Assessment & Plan Note - Jason Andre MD - 07/16/2025 6:52 AM EDT Associated Problem(s): Depression Home Duloxetine * Assessment & Plan Note - Jason Andre MD - 07/16/2025 6:52 AM EDT Associated Problem(s): Morbid (severe) obesity due to excess calories (CMS/HCC) Complicates all aspect of care * Assessment & Plan Note - Jason Andre MD - 07/16/2025 6:52 AM EDT Associated Problem(s): Urge incontinence Patient currently with a montalvo catheter. Remove when able. * Assessment & Plan Note - Jason Andre MD - 07/16/2025 6:52 AM EDT Associated Problem(s): Absence seizure (CMS/HCC) - On Lamictal 50mg BID at home. Restarted 07/09. * Assessment & Plan Note - Jason Andre MD - 07/16/2025 6:52 AM EDT Associated Problem(s): Acute respiratory failure CPAP at night for suspected sleep apnea Lasix PRN for pulmonary edema and to help with breathing Improving, will continue to monitor * Assessment & Plan Note - Jason Andre MD - 07/16/2025 6:52 AM EDT Associated Problem(s): Septic shock (CMS/HCC) Septic shock secondary to necrotizing fascitis. Required Levophed and Vasopressin for circulatory support. Currently off pressor support, continue to monitor pressures. * Assessment & Plan Note - Jason Andre MD - 07/16/2025 6:52 AM EDT Associated Problem(s): HLD (hyperlipidemia) Home Rosuvastatin * Assessment & Plan Note - Jason Andre MD - 07/16/2025 6:52 AM EDT Associated Problem(s): JOSEP (obstructive sleep apnea) CPAP at night * Assessment & Plan Note - Jason Andre MD - 07/16/2025 6:52 AM EDT Associated Problem(s): Postoperative pain [facility] * Progress Notes - Jason Andre MD - 07/16/2025 6:51 AM EDT 07/16/25 Cristina Brown HPI 50-year-old female with past medical history of absence seizure, hidradenitis suppurative, hypertension, type 2 diabetes, obesity, and tobacco use disorder, and newly diagnosed JOSEP who presented to the emergency department with leukocytosis and exam findings consistent with necrotizing fasciitis. - 07/09: debridement of necrotizing fasciitis in right lower extremity, groin, pubis, and abdominalwall of skin, subcutaneous tissue, and muscle fascia - 07/10: repeat irrigation and debridement of RLE necrotizing fasciitis - 07/11: wound washout, no debridement necessary Overnight: NAEON. Interval: VSS, afebrile. Patient doing well. Removing montalvo today. Has wound vac in place. On 6 L O2. Encouraged 2-3x ambulation. Having bowel movements. Edited by: Jason Andre MD at 07/16/2025 0671 Relevant review of systems was obtained as able and is negative unless stated above in HPI. Vital signs: Vitals: 07/16/25 0438 BP: 116/71 Pulse: 84 Resp: 18 Temp: 36.7 ??C (98 ??F) SpO2: 96% Physical Exam Constitutional: Appearance: Normal appearance. Obese. Interventions: Nasal cannula in place. HENT: Head: Normocephalic. Right Ear: External ear normal. Left Ear: External ear normal. Eyes: Extraocular Movements: Extraocular movements intact. Conjunctiva/sclera: Conjunctivae normal. Pulmonary: Effort: Pulmonary effort is normal. Abdominal: General: Abdomen is flat. Palpations: Abdomen is soft. Wound vac in place Skin: General: Skin is warm and dry. Findings: Dressings in place. Neurological: Mental Status: She is alert. Psychiatric: Mood and Affect: Mood normal. Behavior: Behavior normal. Intake/Output Summary (Last 24 hours) at 07/16/2025 0651 Last data filed at 07/16/2025 0649 Gross per 24 hour Intake -- Output 2925 ml Net -2925 ml Lines/Drains/Tubes: Patient Lines/Drains/Airways Status Active Airway None Output by Drain (mL) 07/14/25 07 - 07/14/25 18507/14/25 190 - 07/15/25 0659 07/15/25 07 - 07/15/25 1859 07/15/25 190 - 07/16/25 0651 Requested LDAs do not have output data documented. Labs in last 18 hours: CBC WBC 22.22 (H) Hb 8.9 (L) Plt 376 (H) Hct 28.9 (L) ANC ?? INR ??, PTT ??, Anti-Xa ?? MCV 88 BMP Na 140 Cl 99 BUN 9 Glu 149 (H) K 3.4 (L) Co2 31 (H) Cr 0.48 (L) Ca 8.6 (L) iCa ?? Mg ??, Phos ?? Lactate ?? LFT AST ?? AlkPhos ?? T Prot ?? ALK ?? Bili ?? Alb ?? D.Bili ?? Lab Trends: H/H Results from last 7 days Lab Units 07/16/25 0525 07/14/25 0936 07/13/25 1021 HEMOGLOBIN g/dL 8.9* 9.2* 10.2* HEMATOCRIT % 28.9* 29.4* 32.3* INR Cr Results from last 7 days Lab Units 07/16/25 0525 07/15/25 0450 07/14/25 0936 CREATININE mg/dL 0.48* 0.54* 0.61 Medications reviewed. Vital signs reviewed. Labs reviewed. Radiography reviewed. Assessment and Plan: Assessment & Plan Necrotizing fasciitis (CMS/HCC) Present on Admission: Yes - 07/09: debridement of necrotizing fasciitis in right lower extremity, groin, pubis, and abdominalwall of skin, subcutaneous tissue, and muscle fascia - 07/10: repeat irrigation and debridement of RLE necrotizing fasciitis - 07/11: wound washout, no debridement necessary Admitted to ICU for postoperative monitoring. - 07/13: Downgraded to floor On IV Linezolid Daily dressing changes, PRN Dilaudid available. Possibly d/c Linezolid pending wound eval PT/OT eval pending DM (diabetes mellitus) (CMS/HCC) Present on Admission: Yes - Patient presenting with significant hyperglycemia, requiring an insulin drip on admission. - Currently off insulin drip Pharmacy to dose insulin Glargine 10U, Lispro correction and nighttime dosing. Carbohydrate restricted diet Hidradenitis Present on Admission: Yes Follows with outpatient provider Smoker Present on Admission: Yes - Patient smokes 0.5-1ppd. - Smoking cessation when appropriate. Chronic obstructive pulmonary disease, unspecified (CMS/HCC) Present on Admission: Yes Complicates care. Continue Albuterol and DuoNebs. 3L Nasal cannula, continue to wean as tolerated Monitor respiratory status clinically HTN (hypertension), benign Present on Admission: Yes Restart home meds as appropriate Depression Present on Admission: Yes Home Duloxetine Morbid (severe) obesity due to excess calories (CMS/HCC) Present on Admission: Yes Complicates all aspect of care Urge incontinence Present on Admission: Yes Patient currently with a montalvo catheter. Remove when able. Absence seizure (CMS/HCC) Present on Admission: Yes - On Lamictal 50mg BID at home. Restarted 07/09. Acute respiratory failure Present on Admission: Yes CPAP at night for suspected sleep apnea Lasix PRN for pulmonary edema and to help with breathing Improving, will continue to monitor Septic shock (CMS/HCC) Present on Admission: Yes Septic shock secondary to necrotizing fascitis. Required Levophed and Vasopressin for circulatory support. Currently off pressor support, continue to monitor pressures. HLD (hyperlipidemia) Present on Admission: Yes Home Rosuvastatin JOSEP (obstructive sleep apnea) Present on Admission: No CPAP at night Postoperative pain Present on Admission: Unknown [facility] Non-Hospital Problems Carpal tunnel syndrome Dehydration Hidradenitis suppurativa History of hysterectomy Marijuana smoker Pharyngitis Type 2 diabetes mellitus Overview Signed 08/31/2023 9:36 AM by Janell Bueno Last Assessment & Plan: Condition: stable Discussed glucose control targets. Educated on: Lifestyle changes Follow up in: three months with PCP Vitamin D deficiency Overview Signed 08/31/2023 9:36 AM by Janell Bueno Last Assessment & Plan: Condition: stable Follow up in: three months Wound dehiscence Stress incontinence Nocturia Plan: - WC placed [place] 07/15 - Reg diet, will not drink shakes - Mobilize - DVT US - Wean O2 - CPAP at night for JOSEP. Dispo: AR. Not MR, pending wound closure. Edited by: Jason Andre MD at 07/16/2025 0651 Jason Andre MD Cosigned by Anne Franco MD at 07/22/2025 11:13 PM EDT Associated attestation - Anne Franco MD - 07/22/2025 11:13 PM EDT I saw and evaluated the patient with the resident/fellow. I discussed the case with the resident/fellow and agree with the findings and plan as documented. Management of complex wound, debility and hypoxic respiratory insufficiency are not routine care * Care Plan - Eulalia Estrada RN - 07/16/2025 1:55 AM EDT Problem: Adult Inpatient Plan of Care Goal: Plan of Care Review Outcome: Ongoing, Progressing Flowsheets (Taken 07/16/2025 0129) Progress: improving Plan of Care Reviewed With: patient Goal: Patient-Specific Goal (Individualized) Outcome: Ongoing, Progressing Flowsheets (Taken 07/15/20252024) Patient/Family-Specific Goals (Include Timeframe): pt will remain free from falls and injury throughout shift Individualized Care Needs: safety Anxieties, Fears or Concerns: none stated Note: Bed alarm set, clutter free environment. Call light within reach Goal: Absence of Hospital-Acquired Illness or Injury Outcome: Ongoing, Progressing Intervention: Identify and Manage Fall Risk Flowsheets (Taken 07/16/2025 0054) Safety Promotion/Fall Prevention: activity supervised assistive device/personal items within reach clutter-free environment maintained fall prevention program maintained nonskid shoes/slippers when out of bed room organization consistent safety round/check completed Intervention: Prevent Skin Injury Flowsheets Taken 07/16/2025128 Skin Protection: transparent dressing maintained pulse oximeter probe site changed Taken 07/16/2025 0054 Body Position: side-lying Intervention: Prevent and Manage VTE (Venous Thromboembolism) Risk Flowsheets (Taken 07/16/2025128) VTE Prevention/Management: medication Intervention: Prevent Infection Flowsheets (Taken 07/16/2025128) Infection Prevention: hand hygiene promoted rest/sleep promoted single patient room provided environmental surveillance performed equipment surfaces disinfected personal protective equipment utilized Goal: Optimal Comfort and Wellbeing Outcome: Ongoing, Progressing Intervention: Monitor Pain and Promote Comfort Flowsheets (Taken 07/16/2025128) Pain Management Interventions: pillow support provided position adjusted rest medication offered but refused awakened for pain meds per patient request care clustered quiet environment facilitated relaxation techniques promoted Intervention: Provide Person-Centered Care Flowsheets (Taken 07/14/2025 1800 by Josi Ann RN) Trust Relationship/Rapport: care explained choices provided emotional support provided empathic listening provided questions answered questions encouraged reassurance provided thoughts/feelings acknowledged Problem: Mechanical Ventilation Invasive Goal: Optimal Nutrition Delivery Outcome: Ongoing, Progressing Intervention: Optimize Nutrition Delivery Flowsheets (Taken 07/16/2025128) Nutrition Support Management: weight trending reviewed Problem: Skin Injury Risk Increased Goal: Skin Health and Integrity Outcome: Ongoing, Progressing Intervention: Optimize Skin Protection Flowsheets (Taken 07/16/2025128) Activity Management: activity adjusted per tolerance activity encouraged Pressure Reduction Techniques: frequent weight shift encouraged heels elevated off bed Pressure Reduction Devices: positioning supports utilized Skin Protection: transparent dressing maintained pulse oximeter probe site changed Head of Bed (HOB) Positioning: HOB elevated Problem: Infection Goal: Absence of Infection Signs and Symptoms Outcome: Ongoing, Progressing Intervention: Prevent or Manage Infection Flowsheets Taken 07/16/2025128 by Eulalia Estrada RN Fever Reduction/Comfort Measures: lightweight clothing Isolation Precautions: precautions maintained Taken 07/15/2025 1325 by Sophia Salazar RN Infection Management: aseptic technique maintained Problem: Fall Injury Risk Goal: Absence of Fall and Fall-Related Injury Outcome: Ongoing, Progressing Intervention: Identify and Manage Contributors Flowsheets Taken 07/16/2025128 by Eulalia Estrada RN Self-Care Promotion: independence encouraged BADL personal objects within reach BADL personal routines maintained adaptive equipment use encouraged Taken 07/14/2025 1800 by Josi Ann glove parts cutter Review/Management: medications reviewed Intervention: Promote Injury-Free Environment Flowsheets (Taken 07/16/2025 0054) Safety Promotion/Fall Prevention: activity supervised assistive device/personal items within reach clutter-free environment maintained fall prevention program maintained nonskid shoes/slippers when out of bed room organization consistent safety round/check completed Problem: Self-Care Deficit Goal: Improved Ability to Complete Activities of Daily Living Outcome: Ongoing, Progressing Intervention: Promote Activity and Functional Tonica Flowsheets (Taken 07/16/2025 012) Self-Care Promotion: independence encouraged BADL personal objects within reach BADL personal routines maintained adaptive equipment use encouraged Problem: Wound Goal: Optimal Coping Outcome: Ongoing, Progressing Intervention: Support Patient and Family Response Flowsheets Taken 07/16/2025128 by Eulalia Estrada RN Supportive Measures: active listening utilized verbalization of feelings encouraged problem-solving facilitated relaxation techniques promoted Taken 07/14/2025 1800 by Josi Ann deputy fire marshal/Support System Care: support provided Goal: Optimal Functional Ability Outcome: Ongoing, Progressing Intervention: Optimize Functional Ability Flowsheets Taken 07/16/2025128 by Eulalia Estrada RN Activity Management: activity adjusted per tolerance activity encouraged Taken 07/15/20251744 by Denia Boo, NAHID Activity Assistance Provided: assistance, stand-by Goal: Absence of Infection Signs and Symptoms Outcome: Ongoing, Progressing Intervention: Prevent or Manage Infection Flowsheets (Taken 07/16/2025128) Fever Reduction/Comfort Measures: lightweight clothing Isolation Precautions: precautions maintained Goal: Improved Oral Intake Outcome: Ongoing, Progressing Intervention: Promote and Optimize Oral Intake Flowsheets Taken 07/16/2025128 by Eulalia Estrada RN Nutrition Support Management: weight trending reviewed Oral Nutrition Promotion: adaptive equipment use encouraged rest periods promoted Taken 07/14/2025 1800 by Josi Ann, RN Nutrition Interventions: frequent small meals provided supplemental drinks provided Goal: Optimal Pain Control and Function Outcome: Ongoing, Progressing Intervention: Prevent or Manage Pain Flowsheets (Taken 07/16/2025128) Pain Management Interventions: pillow support provided position adjusted rest medication offered but refused awakened for pain meds per patient request care clustered quiet environment facilitated relaxation techniques promoted Sleep/Rest Enhancement: awakenings minimized consistent schedule promoted noise level reduced regular sleep/rest pattern promoted relaxation techniques promoted room darkened Goal: Skin Health and Integrity Outcome: Ongoing, Progressing Intervention: Optimize Skin Protection Flowsheets (Taken 07/16/2025 0129) Activity Management: activity adjusted per tolerance activity encouraged Pressure Reduction Techniques: frequent weight shift encouraged heels elevated off bed Pressure Reduction Devices: positioning supports utilized Head of Bed (HOB) Positioning: HOB elevated Goal: Optimal Wound Healing Outcome: Ongoing, Progressing Intervention: Promote Wound Healing Flowsheets (Taken 07/16/2025 0129) Sleep/Rest Enhancement: awakenings minimized consistent schedule promoted noise level reduced regular sleep/rest pattern promoted relaxation techniques promoted room darkened * Care Plan - Denia Boo RN - 07/15/2025 5:50 PM EDT Problem: Adult Inpatient Plan of Care Goal: Plan of Care Review Outcome: Ongoing, Progressing Flowsheets Taken 07/14/2025 2311 by Rita Alejandro RN Progress: improving Taken 07/14/2025 181 by Josi Ann RN Plan of Care Reviewed With: patient Goal: Patient-Specific Goal (Individualized) Outcome: Ongoing, Progressing Flowsheets (Taken 07/15/2025 0900) Patient/Family-Specific Goals (Include Timeframe): pain will be reported less than 5 for the entireshift Individualized Care Needs: pain management Anxieties, Fears or Concerns: pain Goal: Absence of Hospital-Acquired Illness or Injury Outcome: Ongoing, Progressing Intervention: Identify and Manage Fall Risk Flowsheets (Taken 07/15/2025 0900) Safety Promotion/Fall Prevention: activity supervised lighting adjusted nonskid shoes/slippers when out of bed assistive device/personal items within reach clutter-free environment maintained Intervention: Prevent Skin Injury Flowsheets Taken 07/15/2025 1600 by Isha Colunga RN Body Position: weight shifting Taken 07/14/20251999 by Rita Alejandro, NAHID Skin Protection: incontinence pads utilized Intervention: Prevent and Manage VTE (Venous Thromboembolism) Risk Flowsheets (Taken 07/14/20251999 by Rita Alejandro, NAHID) VTE Prevention/Management: SCDs (sequential compression devices) on bilateral medication Intervention: Prevent Infection Flowsheets (Taken 07/14/2025 1800 by Josi Ann RN) Infection Prevention: hand hygiene promoted rest/sleep promoted Goal: Optimal Comfort and Wellbeing Outcome: Ongoing, Progressing Intervention: Monitor Pain and Promote Comfort Flowsheets (Taken 07/15/2025 1137) Pain Management Interventions: medication (see MAR) Intervention: Provide Person-Centered Care Flowsheets (Taken 07/14/2025 1800 by Josi Ann, RN) Trust Relationship/Rapport: care explained choices provided emotional support provided empathic listening provided questions answered questions encouraged reassurance provided thoughts/feelings acknowledged Problem: Mechanical Ventilation Invasive Goal: Optimal Nutrition Delivery Outcome: Ongoing, Progressing Intervention: Optimize Nutrition Delivery Flowsheets (Taken 07/14/2025 1800 by Josi Ann, RN) Nutrition Support Management: weight trending reviewed Problem: Skin Injury Risk Increased Goal: Skin Health and Integrity Outcome: Ongoing, Progressing Intervention: Optimize Skin Protection Flowsheets Taken 07/15/2025 1647 by Isha Colunga RN Activity Management: ambulated to bathroom Taken 07/15/2025 1325 by Sophia Salazar RN Pressure Reduction Devices: specialty bed utilized Taken 07/14/20251999 by Rita Alejandro, NAHID Skin Protection: incontinence pads utilized Head of Bed (HOB) Positioning: HOB elevated Taken 07/14/2025 1800 by Josi Ann RN Pressure Reduction Techniques: pressure points protected Intervention: Promote and Optimize Oral Intake Flowsheets Taken 07/15/2025 1325 by Sophia Salazar RN Oral Nutrition Promotion: social interaction promoted Taken 07/14/2025 1800 by Josi Ann RN Nutrition Interventions: frequent small meals provided supplemental drinks provided Problem: Infection Goal: Absence of Infection Signs and Symptoms Outcome: Ongoing, Progressing Intervention: Prevent or Manage Infection Flowsheets Taken 07/15/2025 1325 by Sophia Salazar RN Infection Management: aseptic technique maintained Isolation Precautions: precautions maintained Taken 07/14/2025 1800 by Josi Ann RN Fever Reduction/Comfort Measures: lightweight bedding Problem: Fall Injury Risk Goal: Absence of Fall and Fall-Related Injury Outcome: Ongoing, Progressing Intervention: Identify and Manage Contributors Flowsheets (Taken 07/14/2025 1800 by Josi Ann, RN) Medication Review/Management: medications reviewed Self-Care Promotion: independence encouraged Intervention: Promote Injury-Free Environment Flowsheets (Taken 07/15/2025 0900) Safety Promotion/Fall Prevention: activity supervised lighting adjusted nonskid shoes/slippers when out of bed assistive device/personal items within reach clutter-free environment maintained Problem: Self-Care Deficit Goal: Improved Ability to Complete Activities of Daily Living Outcome: Ongoing, Progressing Intervention: Promote Activity and Functional Tonica Flowsheets Taken 07/15/2025 1745 by Denia Boo RN Activity Assistance Provided: assistance, stand-by Taken 07/14/2025 2311 by Rita Alejandro RN Adaptive Equipment Use: long-handled shoe horn Taken 07/14/2025 1800 by Josi Ann, RN Self-Care Promotion: independence encouraged Problem: Wound Goal: Optimal Coping Outcome: Ongoing, Progressing Intervention: Support Patient and Family Response Flowsheets Taken 07/15/2025 1325 by Sophia Salazar RN Supportive Measures: positive reinforcement provided Taken 07/14/2025 1800 by Josi Ann deputy fire marshal/Support System Care: support provided Goal: Optimal Functional Ability Outcome: Ongoing, Progressing Intervention: Optimize Functional Ability Flowsheets Taken 07/15/2025 1745 by Denia Boo RN Activity Assistance Provided: assistance, stand-by Taken 07/15/2025 1647 by Isha Colunga RN Activity Management: ambulated to bathroom Taken 07/15/2025 1045 by Isha Colunga RN Assistive Device Utilized: front wheel walker Goal: Absence of Infection Signs and Symptoms Outcome: Ongoing, Progressing Intervention: Prevent or Manage Infection Flowsheets Taken 07/15/2025 1325 by Sophia Salazar RN Infection Management: aseptic technique maintained Isolation Precautions: precautions maintained Taken 07/14/2025 1800 by Josi Ann RN Fever Reduction/Comfort Measures: lightweight bedding Goal: Improved Oral Intake Outcome: Ongoing, Progressing Intervention: Promote and Optimize Oral Intake Flowsheets Taken 07/15/2025 1325 by Sophia Salazar RN Oral Nutrition Promotion: social interaction promoted Taken 07/14/2025 1800 by Josi Ann, RN Nutrition Support Management: weight trending reviewed Nutrition Interventions: frequent small meals provided supplemental drinks provided Goal: Optimal Pain Control and Function Outcome: Ongoing, Progressing Intervention: Prevent or Manage Pain Flowsheets Taken 07/15/2025 1137 by Denia Boo RN Pain Management Interventions: medication (see MAR) Taken 07/14/2025 1800 by Josi Ann RN Sleep/Rest Enhancement: awakenings minimized consistent schedule promoted Goal: Skin Health and Integrity Outcome: Ongoing, Progressing Intervention: Optimize Skin Protection Flowsheets Taken 07/15/2025 1647 by Isha Colunga RN Activity Management: ambulated to bathroom Taken 07/15/2025 1325 by Sophia Salazar RN Pressure Reduction Devices: specialty bed utilized Taken 07/14/20251999 by Rita Alejandro RN Head of Bed (HOB) Positioning: HOB elevated Taken 07/14/2025 1800 by Josi Ann RN Pressure Reduction Techniques: pressure points protected Skin Protection: frequent weight shift encouraged weight shift assistance provided incontinence pads utilized Goal: Optimal Wound Healing Outcome: Ongoing, Progressing Intervention: Promote Wound Healing Flowsheets (Taken 07/14/2025 1800 by Josi Ann RN) Sleep/Rest Enhancement: awakenings minimized consistent schedule promoted * Care Plan - Sophia Salazar RN - 07/15/2025 1:27 PM EDT Problem: Wound Goal: Optimal Coping Outcome: Ongoing, Progressing Intervention: Support Patient and Family Response Flowsheets (Taken 07/15/2025 132) Supportive Measures: positive reinforcement provided Goal: Optimal Functional Ability Outcome: Ongoing, Progressing Intervention: Optimize Functional Ability Flowsheets (Taken 07/15/2025 1325) Activity Management: activity encouraged Goal: Absence of Infection Signs and Symptoms Outcome: Ongoing, Progressing Intervention: Prevent or Manage Infection Flowsheets (Taken 07/15/2025 132) Infection Management: aseptic technique maintained Isolation Precautions: precautions maintained Goal: Improved Oral Intake Outcome: Ongoing, Progressing Intervention: Promote and Optimize Oral Intake Flowsheets (Taken 07/15/2025 132) Oral Nutrition Promotion: social interaction promoted Goal: Optimal Pain Control and Function Outcome: Ongoing, Progressing * Progress Notes - Sophia Salazar RN - 07/15/2025 1:14 PM EDT Images from the original note were not included. Wound Care Consult Visit Date: 07/15/2025 Patient Name: Cristina Brown Date of : 1975 Admit Date: 07/08/2025 Reason for Consult: IP Wound Orders (From admission, onward) Start Ordered 07/15/25 0721 Wound ostomy eval and treat Once Comments: Consulting for wound vac, please take picture of wound prior to vac placement and includein chart Question: Instructions: Answer: Prior to sending evaluation & treat order, place wound/ostomy LDA, complete a wound/ostomy assessment, and consider taking a photograph to document. 07/15/25 0720 Wound History: per chart review patient with PMH absence seizure, hidradenitis suppurative, hypertension, type 2 diabetes, obesity, and tobacco use disorder, JOSEP, now with RLE necrotizing fascitis s/p debridement. Wound Assessment: Wound 07/08/25 Infection Necrotizing Tissue Leg Right;Upper;Inner (Active) Date First Assessed/Time First Assessed: 07/08/252108 Present on Original Admission: Yes Hand Hygiene Completed: Yes Primary Wound Type: Infection Secondary Wound Type - Infection: Necrotizing Tissue Location: Leg Wound Location Orientation: R... Assessments 07/15/2025 11:31 AM Wound Image Wound Assessment Red;Pale Margins Well-defined edges Leann-Wound Assessment Red;Moist Shape irregular, full thickness Drainage Description Serosanguineous Drainage Amount Moderate Treatments Cleansed Dressing Vacuum dressing Number of Packing Pieces Used 9 Dressing Changed Changed Dressing Status Dressing Changed State of Healing Early/partial granulation Non-staged Wound Description Full thickness No associated orders. Wound Team Summary Assessment: Previous packing removed, removal was quite painful for patient with10 mg oxycodone taken 30 minutes prior, provider at bedside able to order additional 0.5 mg Dilaudid for dressing change. Wound assessed as above, irrigated with normal saline, periwound cleansed anddraped in windowpane fashion. Medial portion ringed with blaire strips, adaptic applied to suture lines and covered with black foam. White foam tucked into tunneled area to the lateral edge and into undermining to the superior edge, the rest of the wound was filled with black foam, draped and trac pad applied. Suction achieved at 125 mmHg. Patient tolerated with additional medication. Wound Team Plan: wound care to follow weekly, assist nursing PRN. Sophia Salazar RN 07/15/2025 1:14 PM * Consults - Marilee Agustin RD - 07/15/2025 11:50 AM EDT Adult Nutrition Evaluation Note Cristina Brown 50 y.o. female CSN: [id number] Room/Bed 123/123A Nutrition evaluation type: follow-up Reason for evaluation: Hospital course: 50 y o F transferred from [facility] with concern for necrotizing fasciitis; OR 07/08 for excisional debridement of RLE, groin, pubis, and abdominal wall of skin, subcutaneous tissue, and muscle fascia, [id number]. Septic shock secondary to NSTI. Intubated & sedated. TF initiated 07/09. 07/11: Right groin wound exploration and washout on 07/10. Extubated 07/10. To OR for wound vac replacement 07/11 07/15: Downgraded to floor on 07/13. Endo following. Past medical/ surgical history: Past Medical History[1], celiac disease Surgical History[2] Social history: Social History[3] Additional comments: 07/11: Extubated; OG removed. Pt is NPO Vitals and Basic Assessment: BP: 106/73 Temp: 36.6 ??C (97.8 ??F) Invasive Ventilator Initiated (ETT/Trach Only): Yes Oxygen Therapy: Supplemental oxygen O2 Delivery Method: Nasal cannula Dileep Coma Scale Score: 15 Julián Scale Score: 16 Satnam/Cubbin Pressure Risk Score: 36 Most Recent BM Date: 07/13/25 GI Symptoms: Nausea, Vomiting Edema: Generalized Skin: necrotizing tissue right upper leg Allergies: Gluten meal Medications: Current Scheduled Medications[4]Current Continuous Medications[5]lCurrent PRN Medications[6] Labs: Labs in last 18 hours CBC WBC ?? Hb ?? Plt ?? Hct ?? ANC ?? INR ??, PTT ??, Anti-Xa ?? BMP Na 136 Cl 95 (L) BUN 11 Glu 150 (H) K 4.1 Co2 32 (H) Cr 0.54 (L) Ca 8.8 (L) iCa ?? Mg 1.9, Phos 2.3 (L) Lab Results Component Value Date HGBA1C 7.5 (H) 07/09/2025 Anthropometrics: Height: 177.8 cm Weight: 177 kg- 07/08/25 IBW: 68.2 kg %IBW: 260 Adjusted Body Weight: 95.4 kg BMI: 56.1 Wt evaluation: Extreme Obesity Weight History: Wt Readings from Last 30 Encounters: 07/15/25 181 kg (398 lb 2.4 oz) 02/29/24 148 kg (325 lb 6.4 oz) 08/31/23 155 kg (341 lb 7.9 oz) Estimated Needs: Kcal: 25-27 kcal/kg adj bw (1700-9449 kcal/d) Protein: 1.5-1.7 g/kg adj bw (143-162 g/d) Current Nutrition Intake: Diet supplements: Diet: CC2, high tracy/pro, gluten free, low tyramine. Percent meals eaten: 33% x 2 recent meals. Nutrition Support: Diet Experience & Nutrition History: Diet Education: Will monitor- Consult for education pending. Pertinent Home Medications: per med rec at this time, not taking listed meds - monitor for updates Nutrition Focused Physical Exam: Physical exam performed on (date): 07/09/25 (visual; may be skewed by obesity) Temples (muscles): None Clavicle (muscle): None Shoulder (muscle): None Orbital (fat): None Assessment of Malnutrition: Malnutrition Identified: No Nutrition Problem: Inadequate oral intake related to clinical condition as evidenced by NPO diet order (diet advanced) Status of Nutrition Diagnosis: Ongoing Nutrition Interventions and Recommendations: - Cont with CC2, high tracy/pro, gluten free. - Will discontinue Tyramine. - Will send snacks TID. - Cont Jose BID. - MVI. - Record PO intake. - Bowel regimen per team. Nutrition Monitoring and Goals: -po to begin (met). -Patient will consume >50% of most meals (new). -Monitor tolerance and adequacy of po intake / enteral infusion, wt changes, bowel fxn, labs, skin integrity; and follow up per acuity (ongoing) Acuity Level: [address], LD [1] Past Medical History: Diagnosis Date Anxiety Asthma Carpal tunnel syndrome Depression Diabetes (CMS/HCC) H/O absence seizures Hidradenitis High cholesterol Hypertension Postoperative pain 07/13/2025 Sleep apnea Smoker [2] Past Surgical History: Procedure Laterality Date CARPAL TUNNEL RELEASE 2 carpal tunnel surgeries - Aug CHOLECYSTECTOMY 1994 HAND SURGERY Left 2022 carpal tunnel HYSTERECTOMY 2005 TONSILECTOMY, ADENOIDECTOMY, BILATERAL MYRINGOTOMY AND TUBES 1991 [3] Social History Tobacco Use Smoking status: Every Day Current packs/day: 1.00 Types: Cigarettes Smokeless tobacco: Never Vaping Use Vaping status: Never Used Substance Use Topics Alcohol use: Not Currently Drug use: Yes Types: Marijuana [4] acetaminophen, 1,000 mg, Oral, q6h MARIBELL DULoxetine, 60 mg, Oral, Daily enoxaparin, 40 mg, Subcutaneous, BID insulin glargine-yfgn, 10 Units, Subcutaneous, Nightly insulin lispro, 0-5 Units, Subcutaneous, TID with meals insulin lispro, 0-3 Units, Subcutaneous, Twice at night ipratropium-albuterol, 3 mL, Nebulization, q6h RT Jose, 1 packet, Oral, BID Jose, 1 packet, Oral, BID lamoTRIgine, 100 mg, Oral, Nightly methocarbamol, 750 mg, Oral, TID metoprolol tartrate, 25 mg, Oral, BID polyethylene glycol, 17 g, Oral, Daily rosuvastatin, 20 mg, Oral, Nightly senna-docusate, 1 tablet, Oral, BID sodium chloride, 10 mL, Intravenous, q12h sodium phosphate, 15 mmol, Intravenous, Once [5] [6] PRN medications: albuterol, glucose OR dextrose 10 % OR dextrose 10 % OR glucagon (human recombinant), ondansetron ODT OR ondansetron OR [DISCONTINUED] ondansetron, oxyCODONE OR oxyCODONE, sodium chloride, sodium chloride * Progress Notes - Annie Littlejohn - 07/15/2025 11:30 AM EDT Case Management Adult Initial Progress Note Cristina Bronw 50 y.o. female CSN: [id number] Admission: 07/08/2025 5:58 PM Primary Problem: Necrotizing fasciitis (CMS/HCC) Plug Shaper Hand reviewed chart and spoke with patient to complete this Initial Case Management Assessment. PCP: Yenny Dhillon APRN Emergency Contact: Extended Emergency Contact Information Primary Emergency Contact: Yecenia Lake Mobile Relation: Sister Preferred language: [place] Citizen Order Checker Packer Processer needed? No Secondary Emergency Contact: Arnoldo Raymond [address]: [address] [place] [address] Mobile Relation: Significant Other Preferred language: [place] Citizen Order Checker Packer Processer needed? No Insurance: Primary Visit Coverage Payer Plan Sponsor Code Group Number Group Name [facility] MEDICAID [facility] MEDICAID [facility] Primary Visit Coverage Subscriber Subscriber ID Subscriber Name Subscriber N Subscriber Address [id number] CRISTINA BROWN [id number] [place] [address] Patient information: Primary Caregiver: Self Accompanied by/Relationship: Arnoldo Raymond- significant other Support System: Immediate family, Extended family, Friends Daily Living Activities: Functional Status: Minimum assistance Living Arrangements: Family, Friends Type of Residence: Private residence [address] [place] [address] Smoker in the Home?: Yes Current DME: Equipment Currently Used at Home: none Income Information: Income Source: Unemployed Income/Expense Information: Expenses exceed income Current Resources Utilized: Food Wingate Housing Circumstances-Z Codes: Housing Circumstances (select all that apply): Low Income (101-300% Federal Poverty Guidlines) - Z596 Patient Referred to: Anticipated Discharge Date: TBD Patient's Discharge Goal: Go to Acute Rehab Assistance Available at Discharge: Pt family friends Discharge Transport: Pt will have her own ride home Follow Up Transport: Pt drives herself Home Health / Home Infusion / Outpatient Dialysis Services: N/A Living Will/Advance Directive/Power of Shipping/Receiving Manager /Guardian: N/A Additional Comments: Pt gets her medications from [facility] [place] * Consults - Anupama Braun MBBS - 07/15/2025 8:59 AM EDTAssociated Order(s): Inpatient consult to endocrinology Images from the original note were not included. Inpatient consult to endocrinology Consult performed by: Anupama Braun MBBS Consult ordered by: Anne Franco MD Reason for consult: Diabetes Management History Of Present Illness Cristina Brown is a 50 y.o. female with hx of known TYPE 2 DIABETES MELLITUS, morbid obesity, hidradenitis supparativa, current smoker (1.5 ppd), hx of absent seizures, UTI, depression, anxiety, asthma, HLD, celiac disease who initially came to [facility] on 07/08/2025 as transfer with concern for sepsis from necrotizing fascitis of RLE. She underwent debridement by trauma surgery on 07/09, 07/10 and wound washout on 07/11. She is currently admitted to floors, with IV antibiotics. Upon admission she was placed on Insulin drip that has been transitioned to Basal-Bolus regime. Endocrine Diabetes team was consulted for glycemic management on 07/15/25 She is currently ordered Inj Glargine 10 U HS which she received yesterday. Inj Lispro TID with meals ( not received yesterday due to parameters ) Inj Lispro Correction dose at bedtime ( ) POC Glu over last 24 hours with this regimen : 185 143 154 175 132 Most recent BMP from 4-5 AM shows Glucose 150 Hemoglobin A1c from 07/09 is 7.5 The following diabetes history was provided. Chart review of prior external notes also performed toobtain additional information. -DM type: T2DM ; Diagnosed 1985 Provider managing diabetes: PCP Yenny Dhillon APRN -DM current inpatient medications: Insulin regimen: Glargine long acting and Lispro short acting Basal: 10 Units Bolus: Standard 0-5U TID w meals Correction: 0-5U nightly Non insulin diabetes medications at home : Metformin 500mg BID w meals Failed/Discontinued meds:Ozempic 0.25 mg discontinued due to constipation and dyspepsia Steroids: no -Last insulin dose: 07/14 20:00 with Glargine 10 Units -Medication compliance per pt:Fair compliance to Metformin. -Monitoring glucose at home via : fingersticks -Episodes of hypoglycemia: In the past during her early DM diagnosis. None experienced over last 1 year. -Symptomatic with hypoglycemia: yes -Hx of LOC with hypoglycemia: no -Hx of DKA: no -Diet: Gluten free Carb Consistent Diet -Physically activity: Minimal activity out of bed, restricted due to morbid obesity and current RLEnec fascitis. -Complications: Retinopathy/vision issues: no Peripheral neuropathy: no Hx of kidney disease: no Hx of GI issues/gastroparesis: yes . Experiences constipation. Has diagnosis of Celiac disease diagnosed by Gastroenterology. Hx of heart disease: no Hx of ETOH abuse: no Hx of smoking tobacco : yes Hx of Pancreatitis: no Hx of Hyperlipidemia : yes, on Crestor 20 mg for therapy Past Medical History She has a past medical history of Anxiety, Asthma, Carpal tunnel syndrome, Depression, Diabetes ([facility]), H/O absence seizures, Hidradenitis, High cholesterol, Hypertension, Postoperative pain (07/13/2025), Sleep apnea, and Smoker. Surgical History She has a past surgical history that includes Hand surgery (Left, 2022); Hysterectomy (2005); Tonsilectomy, adenoidectomy, bilateral myringotomy and tubes (1991); Cholecystectomy (1994); and Carpal tunnel release. Family History Family History[1] Social History She reports that she has been smoking cigarettes. She has never used smokeless tobacco. She reportsthat she does not currently use alcohol. She reports current drug use. Drug: Marijuana. Allergies Alprazolam, Bupropion, Aspirin, Doxycycline, Penicillins, and Diazepam Medications Prescriptions Prior to Admission[2] Current Medications[3] Review of Systems Review of Systems Constitutional: Negative for activity change, appetite change and unexpected weight change. Eyes: Negative for visual disturbance. Respiratory: Negative for shortness of breath. Cardiovascular: Positive for leg swelling. Gastrointestinal: Positive for constipation. Negative for abdominal distention, abdominal pain, diarrhea and nausea. Genitourinary: Negative for dysuria, frequency and urgency. Skin: Negative for pallor. Neurological: Negative for tremors and light-headedness. Psychiatric/Behavioral: Negative for behavioral problems and confusion. Physical Exam GEN:Sitting up comfortably in recliner. Morbidly obese white female. EYES: sclera anicteric, extraocular motion grossly intact PULM: No increased work of breathing, completing full sentences, symmetric chest rise CV: Normal rate, regular rhythm ABD: soft, obese abdomen, non tender EXT: Warm well perfused NEURO: A&Ox4. No dysarthria. Moving all extremities voluntarily SKIN: No obvious hyperpigmentation in posterior neck region PSYCH: normal mood and affect Last Recorded Vitals Blood pressure 106/73, pulse (!) 111, temperature 36.6 ??C (97.8 ??F), temperature source Oral, resp. rate 21, height 1.778 m (5' 10 ), weight 181 kg (398 lb 2.4 oz), SpO2 94%. Relevant Results Lab Results Component Value Date GLUCOSE 150 (H) 07/15/2025 GLUCOSE 191 (H) 07/14/2025 GLUCOSE 135 (H) 07/13/2025 PGLU 132 (H) 07/15/2025 PGLU 175 (H) 07/14/2025 PGLU 154 (H) 07/14/2025 PGLU 143 (H) 07/14/2025 PGLU 185 (H) 07/14/2025 PGLU 178 (H) 07/14/2025 PGLU 196 (H) 07/13/2025 PGLU 128 (H) 07/13/2025 Lab Results Component Value Date HGBA1C 7.5 (H) 07/09/2025 I reviewed bg tracing in epic glucose timeline 07/15/25 Diet Dietary Orders (From admission, onward) Start Ordered 07/15/25 0714 Adult diet Diet texture: Regular; Carbohydrate restriction: Consistent Carb 2 (80 gm max/meal); Modified Calorie/Protein: High Calorie, High Protein; Other restriction(s): Gluten Free, Tyramine, low (Adult Diet Panel) Diet effective now References: IDDSI Diet Texture Guide Question Answer Comment Diet texture Regular Carbohydrate restriction: Consistent Carb 2 (80 gm max/meal) Modified Calorie/Protein: High Calorie, High Protein Other restriction(s): Gluten Free Other restriction(s): Tyramine, low 07/15/25 0717 Assessment Diagnoses #Sepsis from necrotizing fascitis #Hyperglycemia #Morbid Obesity BMI 57.13 #Celiac disease - chronic, stable without current active symptoms #Type 2 Diabetes mellitus - controlled -Diagnosed in 1985, as a complication of obesity/metabolic syndrome -Current Home medications: PO Metformin 500 BID -Admitted for last 1 week inpatient with initial hyperglycemia upto 400s requiring insulin drip from sepsis which has now stabilized off insulin drip. - HbA1c most recent 07/09 is 7.5 % - Over last 24hr her TDD was Glargine 10U as she has not required correctional and meal time dosingdue to her POC is within target. - Associated Metabolic syndrome with obesity, HTN, Dyslipidemia. Therapy with GLP1 not tolerated due to Celiac disease and dyspepsia. - No apparent symptoms and signs of DM complications - DM Provider OP : PCP Lab Results Component Value Date HGBA1C 7.5 (H) 07/09/2025 Plan Primary team requests recommendations for outpatient DM regimen/care with her T2DM and concurrent Celiac disease. Patient is currently on Basal + Bolus Insulin in hospital and has maintained her target POC Glucose. - Recommend to continue her home Metformin PO 500mg twice daily with meals upon discharge. - Explained to the patient in detail and listed gluten free dietary options for her as this was hermain concern. She should avoid wheat, rye barley and processed salad dressings that contains gluteningredients. She tolerates dairy products that need no restriction. Include more proteins with vegetables,white meat. Can add nuts and fuits for healthy snack options. Must avoid processed food. - We will provide her appointment details for Endocrinology establishment after discharge close to her home at [place]. She agrees to call and make appointment at her convenience. In the interim, she can follow up with her PCP for her glycemic management. Thank you for the opportunity to participate in this patient's care. [1] Family History Problem Relation Name Age of Onset Hypertension Mother COPD Mother Heart failure Mother Diabetes Mother Kidney cancer Mother Other (enlarge liver) Mother Hyperlipidemia Mother Lung cancer Father [2] Medications Prior to Admission Medication Sig Dispense Refill Last Dose/Taking budesonide-formoterol (Symbicort) 160-4.5 MCG/ACT inhaler Inhale 2 puffs 2 times a day. Taking busPIRone (Buspar) 15 MG tablet Take 1 tablet by mouth 3 times a day. Taking cholecalciferol (Vitamin D-3) 5,000 Units tablet Take 1 tablet by mouth daily. Taking DULoxetine (Cymbalta) [address] capsule Take 1 capsule by mouth daily. Do not crush or chew. Taking fluticasone (Flonase) 50 MCG/ACT nasal spray Administer 1 spray into each nostril 2 times a day. Taking folic acid (Folvite) 1 MG tablet Take 1 tablet by mouth 1 time each day. Taking lamoTRIgine (LaMICtal XR) 100 mg tablet sustained-release 24 hour 24 hr tablet Take 1 tablet by mouth daily. Taking Linzess 72 MCG capsule capsule Take 1 capsule by mouth daily before breakfast. Taking loratadine (Claritin) 10 MG tablet Take 1 tablet by mouth daily. Taking metoprolol succinate XL (Toprol-XL) 100 MG 24 hr tablet Take 1 tablet by mouth daily. Do not crush or chew. Taking mirabegron ER (Myrbetriq) 25 MG tablet Take 1 tablet by mouth daily. 30 tablet 3 Taking montelukast (Singulair) 10 MG tablet Take 1 tablet by mouth daily. Taking naproxen (Naprosyn) 500 MG tablet Take 1 tablet by mouth 2 times a day with meals. Taking polycarbophil (EQ Fiber Therapy) 625 MG tablet Take 1 tablet by mouth daily. Taking rosuvastatin (Crestor) 20 MG tablet Take 1 tablet by mouth daily. Taking valsartan-hydroCHLOROthiazide (Diovan-HCT) 320-12.5 MG tablet Take 1 tablet by mouth 1 time each day. Taking Vitamin E 180 MG (400 UNIT) capsule Take 1 tablet by mouth daily. Taking [3] Current Facility-Administered Medications Medication Dose Route Frequency Provider Last Rate Last Admin acetaminophen (Tylenol) tablet 1,000 mg 1,000 mg Oral q6h Cheyanne Perez MD 1,000 mg at 07/15/25 0502 albuterol (Proventil) (2.5 MG/3ML) 0.083% nebulizer solution 2.5 mg 2.5 mg Nebulization q6h PRN Ruthy Craft MD 2.5 mg at 07/09/25 0106 glucose (Glutose) 40 % oral gel 15-30 grams of glucose 15-30 grams of glucose Sublingual q15 min PRN Richard Betts CRNA Or dextrose 10 % (D10W) bolus 125 mL 125 mL Intravenous q15 min PRN Richard Betts CRNA 500 mL/hrat 07/09/25 1226 125 mL at 07/09/25 1226 Or dextrose 10 % (D10W) bolus 250 mL 250 mL Intravenous q15 min PRN Richard Betts CRNA Or glucagon (human recombinant) injection 1 mg 1 mg Intramuscular q15 min PRN Richard Betts CRNA DULoxetine (Cymbalta) DR capsule 60 mg 60 mg Oral Daily Cheyanne Chakraborty MD 60 mg at 07/14/25 0825 enoxaparin (Lovenox) syringe 40 mg 40 mg Subcutaneous BID Lidia Ellis MD 40 mg at 07/14/252011 insulin glargine-yfgn 100 UNIT/ML injection 10 Units 10 Units Subcutaneous Nightly Lidia Ellis MD 10 Units at 07/14/252011 insulin lispro (Admelog) 100 units/mL injection - Correction - Standard Dose 0-5 Units SubcutaneousTID with meals Lidia Ellis MD 1 Units at 07/14/25 0937 insulin lispro (Admelog) injection - Correction - Nighttime Dose 0-3 Units Subcutaneous Twice at night Lidia Ellis MD ipratropium-albuterol (Duo-Neb) 0.5-2.5 mg/3 mL nebulizer solution 3 mL 3 mL Nebulization q6h RT Ruthy Craft MD 3 mL at 07/15/25 0740 Jose powder 1 packet 1 packet Oral BID Dorcas Hennessy MD 1 packet at 07/13/25 0816 Jose powder 1 packet 1 packet Oral BID Jason Andre MD lamoTRIgine (LaMICtal XR) 24 hr tablet 100 mg 100 mg Oral Nightly Cheyanne Chakraborty MD 100 mg at 07/14/252011 methocarbamol (Robaxin) tablet 750 mg 750 mg Oral TID Cheyanne Chakraborty MD 750 mg at 07/14/252009 metoprolol tartrate (Lopressor) tablet 25 mg 25 mg Oral BID Janell Cross MD 25 mg at 07/14/252009 ondansetron ODT (Zofran-ODT) disintegrating tablet 4 mg 4 mg Oral q6h PRN Shelby Whittington MD 4 mg at 07/13/25 0325 Or ondansetron (Zofran) injection 4 mg 4 mg Intravenous q6h PRN Shelby Whittington MD 4 mg at 07/14/25 0356 oxyCODONE (Roxicodone) immediate release tablet 5 mg 5 mg Oral q6h PRN Cheyanne Chakraborty MD 5 mg at07/12/25 0020 Or oxyCODONE (Roxicodone) immediate release tablet 10 mg 10 mg Oral q6h PRN Cheyanne Chakraborty MD 10 mgat 07/15/25 0457 polyethylene glycol (Miralax) packet 17 g 17 g Oral Daily Lidia Ellis MD 17 g at 07/12/25 1048 rosuvastatin (Crestor) tablet 20 mg 20 mg Oral Nightly Cheyanne Chakraborty MD 20 mg at 07/14/252010 senna-docusate (Leann-Colace) 8.6-50 MG per tablet 1 tablet 1 tablet Oral BID Lidia Ellis MD sodium chloride 0.9 % flush 10 mL 10 mL Intravenous q12h CheRuthy louie MD 10 mL at 07/15/25 0033 sodium chloride 0.9 % flush 10 mL 10 mL Intravenous q1h PRN Ruthy Craft MD sodium chloride 0.9 % flush 20 mL 20 mL Intravenous q1h PRN Ruthy Craft MD Sodium Phosphate-NaCl IVPB 15 mmol 15 mmol Intravenous Once Jason Andre MD Cosigned by Sherrill Villa APRN at 07/15/2025 1:30 PM EDT Associated attestation - Sherrill Villa APRN - 07/15/2025 1:30 PM EDT Reviewed diabetes plan of care with endocrinology fellow. Agree with diabetes plan of care. Provided patient with non[facility] Endocrinology referral - patient requested to see senior quality manager in [place], [place]. Provided patient with address and number of clinic. [[facility] Endocrinology Clinic in the [facility] Physician Building]. Patient has been on insulin while hospitalized, but utilizing metformin at home with good compliance. Diabetes care complicated by celiac diagnosis - placed nutrition consult to help patient navigate gluten free and diabetes diet. * Assessment & Plan Note - Jason Andre MD - 07/15/2025 7:15 AM EDT Associated Problem(s): Necrotizing fasciitis ([facility]) - 07/09: debridement of necrotizing fasciitis in right lower extremity, groin, pubis, and abdominalwall of skin, subcutaneous tissue, and muscle fascia - 07/10: repeat irrigation and debridement of RLE necrotizing fasciitis - 07/11: wound washout, no debridement necessary Admitted to ICU for postoperative monitoring. - 07/13: Downgraded to floor On IV Linezolid Daily dressing changes, PRN Dilaudid available. Possibly d/c Linezolid pending wound eval PT/OT eval pending * Assessment & Plan Note - Jason Andre MD - 07/15/2025 7:15 AM EDT Associated Problem(s): DM (diabetes mellitus) - Patient presenting with significant hyperglycemia, requiring an insulin drip on admission. - Currently off insulin drip Pharmacy to dose insulin Glargine 10U, Lispro correction and nighttime dosing. Carbohydrate restricted diet * Assessment & Plan Note - Jason Andre MD - 07/15/2025 7:15 AM EDT Associated Problem(s): Hidradenitis Follows with outpatient provider * Assessment & Plan Note - Jason Andre MD - 07/15/2025 7:15 AM EDT Associated Problem(s): Smoker - Patient smokes 0.5-1ppd. - Smoking cessation when appropriate. * Assessment & Plan Note - Jason Andre MD - 07/15/2025 7:15 AM EDT Associated Problem(s): Chronic obstructive pulmonary disease, unspecified Complicates care. Continue Albuterol and DuoNebs. 3L Nasal cannula, continue to wean as tolerated Monitor respiratory status clinically * Assessment & Plan Note - Jason Andre MD - 07/15/2025 7:15 AM EDT Associated Problem(s): HTN (hypertension), benign Restart home meds as appropriate * Assessment & Plan Note - Jason Andre MD - 07/15/2025 7:15 AM EDT Associated Problem(s): Depression Home Duloxetine * Assessment & Plan Note - Jason Andre MD - 07/15/2025 7:15 AM EDT Associated Problem(s): Morbid (severe) obesity due to excess calories ([facility]) Complicates all aspect of care * Assessment & Plan Note - Jason Andre MD - 07/15/2025 7:15 AM EDT Associated Problem(s): Urge incontinence Patient currently with a montalvo catheter. Remove when able. * Assessment & Plan Note - Jason Andre MD - 07/15/2025 7:15 AM EDT Associated Problem(s): Absence seizure (CMS/HCC) - On Lamictal 50mg BID at home. Restarted 07/09. * Assessment & Plan Note - Jason Andre MD - 07/15/2025 7:15 AM EDT Associated Problem(s): Acute respiratory failure CPAP at night for suspected sleep apnea Lasix PRN for pulmonary edema and to help with breathing Improving, will continue to monitor * Assessment & Plan Note - Jason Andre MD - 07/15/2025 7:15 AM EDT Associated Problem(s): Septic shock (CMS/HCC) Septic shock secondary to necrotizing fascitis. Required Levophed and Vasopressin for circulatory support. Currently off pressor support, continue to monitor pressures. * Assessment & Plan Note - Jason Andre MD - 07/15/2025 7:15 AM EDT Associated Problem(s): HLD (hyperlipidemia) Home Rosuvastatin * Assessment & Plan Note - Jason Andre MD - 07/15/2025 7:15 AM EDT Associated Problem(s): JOSEP (obstructive sleep apnea) CPAP at night * Assessment & Plan Note - Jason Andre MD - 07/15/2025 7:15 AM EDT Associated Problem(s): Postoperative pain [facility] * Progress Notes - Jason Andre MD - 07/15/2025 7:13 AM EDT 07/15/25 Cristina Brown HPI 50-year-old female with past medical history of absence seizure, hidradenitis suppurative, hypertension, type 2 diabetes, obesity, and tobacco use disorder, and newly diagnosed JOSEP who presented to the emergency department with leukocytosis and exam findings consistent with necrotizing fasciitis. - 07/09: debridement of necrotizing fasciitis in right lower extremity, groin, pubis, and abdominalwall of skin, subcutaneous tissue, and muscle fascia - 07/10: repeat irrigation and debridement of RLE necrotizing fasciitis - 07/11: wound washout, no debridement necessary Overnight: NAEON. Interval: VSS, afebrile. Patient doing well overnight. Hungry today. Will start reg diet. Has been ambulating to toilet. Encouraged 2-3x ambulation. Having bowel movements. Edited by: Jason Andre MD at 07/15/2025 0713 Relevant review of systems was obtained as able and is negative unless stated above in HPI. Vital signs: Vitals: 07/15/25 0121 BP: Pulse: 86 Resp: 18 Temp: SpO2: 93% Physical Exam Constitutional: Appearance: Normal appearance. Interventions: Nasal cannula in place. HENT: Head: Normocephalic. Right Ear: External ear normal. Left Ear: External ear normal. Eyes: Extraocular Movements: Extraocular movements intact. Conjunctiva/sclera: Conjunctivae normal. Pulmonary: Effort: Pulmonary effort is normal. Abdominal: General: Abdomen is flat. Palpations: Abdomen is soft. Skin: General: Skin is warm and dry. Findings: Dressings in place. Neurological: Mental Status: She is alert. Psychiatric: Mood and Affect: Mood normal. Behavior: Behavior normal. Intake/Output Summary (Last 24 hours) at 07/15/2025 0714 Last data filed at 07/15/2025 0600 Gross per 24 hour Intake 780 ml Output 1150 ml Net -370 ml Lines/Drains/Tubes: Patient Lines/Drains/Airways Status Active Airway None Output by Drain (mL) 07/13/25 07 - 07/13/25 1859 07/13/25 1900 - 07/14/25 0659 07/14/25 07 - 07/14/25 1859 07/14/25 1900 - 07/15/25 0659 07/15/25 07 - 07/15/25 0714 Requested LDAs do not have output data documented. Labs in last 18 hours: CBC WBC ?? Hb ?? Plt ?? Hct ?? ANC ?? INR ??, PTT ??, Anti-Xa ?? MCV ?? BMP Na 136 Cl 95 (L) BUN 11 Glu 150 (H) K 4.1 Co2 32 (H) Cr 0.54 (L) Ca 8.8 (L) iCa ?? Mg ??, Phos ?? Lactate ?? LFT AST ?? AlkPhos ?? T Prot ?? ALK ?? Bili ?? Alb ?? D.Bili ?? Lab Trends: H/H Results from last 7 days Lab Units 07/14/25 0936 07/13/25 1021 07/12/25 0025 HEMOGLOBIN g/dL 9.2* 10.2* 9.3* HEMATOCRIT % 29.4* 32.3* 29.8* INR Results from last 7 days Lab Units 07/08/25 2353 07/08/25 1814 INR 1.2* 1.2* Cr Results from last 7 days Lab Units 07/15/25 0450 07/14/25 0936 07/13/25 1021 CREATININE mg/dL 0.54* 0.61 0.62 Medications reviewed. Vital signs reviewed. Labs reviewed. Radiography reviewed. Assessment and Plan: Assessment & Plan Necrotizing fasciitis (CMS/HCC) Present on Admission: Yes - 07/09: debridement of necrotizing fasciitis in right lower extremity, groin, pubis, and abdominalwall of skin, subcutaneous tissue, and muscle fascia - 07/10: repeat irrigation and debridement of RLE necrotizing fasciitis - 07/11: wound washout, no debridement necessary Admitted to ICU for postoperative monitoring. - 07/13: Downgraded to floor On IV Linezolid Daily dressing changes, PRN Dilaudid available. Possibly d/c Linezolid pending wound eval PT/OT eval pending DM (diabetes mellitus) (CMS/HCC) Present on Admission: Yes - Patient presenting with significant hyperglycemia, requiring an insulin drip on admission. - Currently off insulin drip Pharmacy to dose insulin Glargine 10U, Lispro correction and nighttime dosing. Carbohydrate restricted diet Hidradenitis Present on Admission: Yes Follows with outpatient provider Smoker Present on Admission: Yes - Patient smokes 0.5-1ppd. - Smoking cessation when appropriate. Chronic obstructive pulmonary disease, unspecified (CMS/HCC) Present on Admission: Yes Complicates care. Continue Albuterol and DuoNebs. 3L Nasal cannula, continue to wean as tolerated Monitor respiratory status clinically HTN (hypertension), benign Present on Admission: Yes Restart home meds as appropriate Depression Present on Admission: Yes Home Duloxetine Morbid (severe) obesity due to excess calories (CMS/HCC) Present on Admission: Yes Complicates all aspect of care Urge incontinence Present on Admission: Yes Patient currently with a montalvo catheter. Remove when able. Absence seizure (CMS/HCC) Present on Admission: Yes - On Lamictal 50mg BID at home. Restarted 07/09. Acute respiratory failure Present on Admission: Yes CPAP at night for suspected sleep apnea Lasix PRN for pulmonary edema and to help with breathing Improving, will continue to monitor Septic shock (CMS/HCC) Present on Admission: Yes Septic shock secondary to necrotizing fascitis. Required Levophed and Vasopressin for circulatory support. Currently off pressor support, continue to monitor pressures. HLD (hyperlipidemia) Present on Admission: Yes Home Rosuvastatin JOSEP (obstructive sleep apnea) Present on Admission: No CPAP at night Postoperative pain Present on Admission: Unknown [facility] Non-Hospital Problems Carpal tunnel syndrome Dehydration Hidradenitis suppurativa History of hysterectomy Marijuana smoker Pharyngitis Type 2 diabetes mellitus Overview Signed 08/31/2023 9:36 AM by Janell Bueno Last Assessment & Plan: Condition: stable Discussed glucose control targets. Educated on: Lifestyle changes Follow up in: three months with PCP Vitamin D deficiency Overview Signed 08/31/2023 9:36 AM by Janell Bueno Last Assessment & Plan: Condition: stable Follow up in: three months Wound dehiscence Stress incontinence Nocturia Plan: - Dilaudid PRN for dressing changes. - Dressing changes BID - WC consult - Reg diet, will not drink shakes - CPAP at night for JOSEP. Dispo: AR. Not MR, pending wound closure. Edited by: Jason Andre MD at 07/15/2025 0713 Jason Andre MD Cosigned by Anne Franco MD at 07/17/2025 12:16 PM EDT Associated attestation - Anne Franco MD - 07/17/2025 12:16 PM EDT I saw and evaluated the patient with the resident/fellow. I discussed the case with the resident/fellow and agree with the findings and plan as documented. * Care Plan - Rita Alejandro RN - 07/14/2025 11:12 PM EDT Problem: Adult Inpatient Plan of Care Goal: Plan of Care Review Outcome: Ongoing, Progressing Flowsheets Taken 07/14/20252310 by Rita Alejandro RN Progress: improving Taken 07/14/2025 181 by Josi Ann RN Plan of Care Reviewed With: patient Goal: Patient-Specific Goal (Individualized) Outcome: Ongoing, Progressing Flowsheets (Taken 07/14/20251999) Patient/Family-Specific Goals (Include Timeframe): pt will remain free from injury throughout this entire shift Individualized Care Needs: safety management Anxieties, Fears or Concerns: none verbalized Problem: Skin Injury Risk Increased Goal: Skin Health and Integrity Outcome: Ongoing, Progressing Intervention: Promote and Optimize Oral Intake Flowsheets (Taken 07/14/2025 1800 by Josi Ann, RN) Oral Nutrition Promotion: calorie-dense foods provided rest periods promoted Nutrition Interventions: frequent small meals provided supplemental drinks provided Problem: Self-Care Deficit Goal: Improved Ability to Complete Activities of Daily Living Outcome: Ongoing, Progressing Intervention: Promote Activity and Functional Tonica Flowsheets Taken 07/14/20252310 by Rita Alejandro, RN Adaptive Equipment Use: long-handled shoe horn Taken 07/14/2025 1800 by Josi Ann, RN Activity Assistance Provided: assistance, 2 people Self-Care Promotion: independence encouraged Problem: Wound Goal: Optimal Coping Outcome: Ongoing, Progressing Intervention: Support Patient and Family Response Flowsheets (Taken 07/14/2025 1800 by Josi Ann, RN) Supportive Measures: active listening utilized self-care encouraged positive reinforcement provided Family/Support System Care: support provided Goal: Skin Health and Integrity Outcome: Ongoing, Progressing Intervention: Optimize Skin Protection Flowsheets Taken 07/14/20251999 by Rita Alejandro, RN Activity Management: back to bed Head of Bed (HOB) Positioning: HOB elevated Taken 07/14/2025 1800 by Josi Ann RN Pressure Reduction Devices: positioning supports utilized Skin Protection: frequent weight shift encouraged weight shift assistance provided incontinence pads utilized Goal: Optimal Wound Healing Outcome: Ongoing, Progressing Intervention: Promote Wound Healing Flowsheets (Taken 07/14/2025 1800 by Josi Ann, RN) Sleep/Rest Enhancement: awakenings minimized consistent schedule promoted * Care Plan - Josi Ann RN - 07/14/2025 6:15 PM EDT Problem: Adult Inpatient Plan of Care Goal: Plan of Care Review Outcome: Ongoing, Progressing Flowsheets (Taken 07/14/2025 1813) Plan of Care Reviewed With: patient Goal: Patient-Specific Goal (Individualized) Outcome: Ongoing, Progressing Flowsheets (Taken 07/14/2025 1800) Patient/Family-Specific Goals (Include Timeframe): patient will remain free of fall or injury this shift Individualized Care Needs: safety Anxieties, Fears or Concerns: denies Goal: Absence of Hospital-Acquired Illness or Injury Outcome: Ongoing, Progressing Intervention: Identify and Manage Fall Risk Flowsheets (Taken 07/14/2025 1800) Safety Promotion/Fall Prevention: activity supervised assistive device/personal items within reach clutter-free environment maintained fall prevention program maintained mobility aid in reach lighting adjusted nonskid shoes/slippers when out of bed room organization consistent safety round/check completed Goal: Optimal Comfort and Wellbeing Outcome: Ongoing, Progressing Intervention: Provide Person-Centered Care Flowsheets (Taken 07/14/2025 1800) Trust Relationship/Rapport: care explained choices provided emotional support provided empathic listening provided questions answered questions encouraged reassurance provided thoughts/feelings acknowledged Problem: Mechanical Ventilation Invasive Goal: Optimal Nutrition Delivery Outcome: Ongoing, Progressing Intervention: Optimize Nutrition Delivery Flowsheets (Taken 07/14/2025 1800) Nutrition Support Management: weight trending reviewed Problem: Skin Injury Risk Increased Goal: Skin Health and Integrity Outcome: Ongoing, Progressing Intervention: Promote and Optimize Oral Intake Flowsheets (Taken 07/14/2025 1800) Oral Nutrition Promotion: calorie-dense foods provided rest periods promoted Nutrition Interventions: frequent small meals provided supplemental drinks provided Problem: Infection Goal: Absence of Infection Signs and Symptoms Outcome: Ongoing, Progressing Intervention: Prevent or Manage Infection Flowsheets (Taken 07/14/2025 1800) Infection Management: aseptic technique maintained Fever Reduction/Comfort Measures: lightweight bedding Isolation Precautions: precautions maintained Problem: Fall Injury Risk Goal: Absence of Fall and Fall-Related Injury Outcome: Ongoing, Progressing Intervention: Promote Injury-Free Environment Flowsheets (Taken 07/14/2025 1800) Safety Promotion/Fall Prevention: activity supervised assistive device/personal items within reach clutter-free environment maintained fall prevention program maintained mobility aid in reach lighting adjusted nonskid shoes/slippers when out of bed room organization consistent safety round/check completed Problem: Self-Care Deficit Goal: Improved Ability to Complete Activities of Daily Living Outcome: Ongoing, Progressing Intervention: Promote Activity and Functional Tonica Flowsheets (Taken 07/14/2025 1800) Activity Assistance Provided: assistance, 2 people Self-Care Promotion: independence encouraged Problem: Wound Goal: Optimal Coping Outcome: Ongoing, Progressing Intervention: Support Patient and Family Response Flowsheets (Taken 07/14/2025 1800) Supportive Measures: active listening utilized self-care encouraged positive reinforcement provided Family/Support System Care: support provided Goal: Optimal Functional Ability Outcome: Ongoing, Progressing Goal: Absence of Infection Signs and Symptoms Outcome: Ongoing, Progressing Intervention: Prevent or Manage Infection Flowsheets (Taken 07/14/2025 1800) Infection Management: aseptic technique maintained Fever Reduction/Comfort Measures: lightweight bedding Isolation Precautions: precautions maintained Goal: Improved Oral Intake Outcome: Ongoing, Progressing Intervention: Promote and Optimize Oral Intake Flowsheets (Taken 07/14/2025 1800) Nutrition Support Management: weight trending reviewed Oral Nutrition Promotion: calorie-dense foods provided rest periods promoted Nutrition Interventions: frequent small meals provided supplemental drinks provided Goal: Optimal Pain Control and Function Outcome: Ongoing, Progressing Intervention: Prevent or Manage Pain Flowsheets (Taken 07/14/2025 1800) Pain Management Interventions: medication (see MAR) care clustered emotional support Sleep/Rest Enhancement: awakenings minimized consistent schedule promoted Goal: Skin Health and Integrity Outcome: Ongoing, Progressing Intervention: Optimize Skin Protection Flowsheets (Taken 07/14/2025 1800) Activity Management: activity adjusted per tolerance Pressure Reduction Techniques: pressure points protected Pressure Reduction Devices: positioning supports utilized Skin Protection: frequent weight shift encouraged weight shift assistance provided incontinence pads utilized Head of Bed (HOB) Positioning: HOB elevated Goal: Optimal Wound Healing Outcome: Ongoing, Progressing Intervention: Promote Wound Healing Flowsheets (Taken 07/14/2025 1800) Sleep/Rest Enhancement: awakenings minimized consistent schedule promoted * Anesthesia PACU Signout - Lynnette Thurston DO - 07/14/2025 5:22 PM EDT Patient: Cristina Brown Anesthesia Type: general Vitals Value Taken Time BP 123/60 07/14/25 17:16 Temp 36.9 ??C (98.4 ??F) 07/14/25 16:25 Pulse 95 07/14/25 17:21 Resp 19 07/14/25 17:21 SpO2 90 % 07/14/25 17:21 Vitals shown include unfiled device data. Anesthesia PACU Signout Patient location during evaluation: PACU Patient participation: complete - patient participated Level of consciousness: baseline and awake Pain management: adequate (pain score 0-3) Airway patency: natural airway Hydration status: acceptable PONV: none Cardiovascular status: acceptable and hemodynamically stable Respiratory status: acceptable, spontaneous ventilation, unassisted, nonlabored ventilation and nasal cannula Discharge Disposition: admit to inpatient unit Comments: Patient is s/p Procedure(s) and Anesthesia Type: * Debridement, partial closure of right groin wound - General. Patient remains HDS on 4L NC (consistent with preop baseline supplemental oxygen requirements), neurologically appropriate, pain is controlled, and tolerating PO w/o N/V. Patient is appropriate for discharge from PACU to inpatient unit for continued postop care. Cosigned by Sergey Chandra MD at 07/14/2025 6:36 PM EDT Associated attestation - Sergey Chandra MD - 07/14/2025 6:36 PM EDT I saw and evaluated the patient with the resident/fellow. I discussed the case with the resident/fellow and agree with the findings and plan as documented. * Op Note - Anne Franco MD - 07/14/2025 3:24 PM EDT Operative Note Date: 07/14/25 Location: [facility] Name: Cristina Brown, : 1975, Diagnoses: Pre-op Diagnosis Necrotizing fasciitis (CMS/HCC) Post-op Diagnosis Necrotizing fasciitis (CMS/HCC) Procedure(s): Wound irrigation Partial wound closure, total closed 30 cm length Attending Surgeon(s): * Anne Franco - Primary Magnetic Locater(s): * Janell Cross MD - Resident - Assisting Anesthesia: General ASA: III Blood Administration: Blood Product Administration History Product Date Volume Status Transfuse RBC RBC 07/08/2025 350 mL Completed 07/08/252341 Transfuse fresh frozen plasma Plasma 07/08/2025 300 mL Completed 07/08/25 2342 Transfuse RBC RBC 07/08/2025 350 mL Completed 07/08/25 2342 Transfuse fresh frozen plasma Plasma 07/08/2025 300 mL Completed 07/08/25 234 Estimated Blood Loss: Minimal Drains: Urethral Catheter Temperature probe 16 Fr. (Active) Site Assessment Clean;Skin intact 07/14/251624 CAUTI: Collection Container Standard drainage bag;Collection container below bladder and tubing free of kinks 07/14/251624 CAUTI: Securement Method Securing device (Describe) 07/14/251624 CAUTI: Specimen Collection Port Covered with Alcohol Cap Yes 09/07/25 1625 CAUTI: Urinary Catheter Indication Yes, meets indication reason 07/14/25 0000 CAUTI: Urinary Catheter Indication Reasons Stage 3-4 sacral/perineal wound with female incontinent patient 07/14/25 0000 Output (mL) 30 mL 07/14/25 1625 [REMOVED] NG/OG [facility] Sump Orogastric Center mouth (Removed) Placement Verification distal tube length 07/10/25 0800 Tube Placement Length Marking (cm) 60 07/10/25 0800 Site Assessment Clean;Dry;Intact 07/10/25 0800 Surrounding Skin Dry;Intact 07/10/25 0800 Secured by Tape 07/10/25 08 Secured Location ETT 07/10/25 0800 NG/OG Status Clamped;Medication administration only 07/10/25 0800 Drainage Appearance Bile 07/09/25 0800 NG/OG Interventions Clamped;Irrigated;Medication administration only 07/10/25 0800 Irrigant Tap water 07/10/25 0800 Tube Feeding Frequency Other (Comment) 07/10/25 0400 Tube Feeding Rate (mL/hr) 0 mL/hr 07/10/25 0400 Tube Feeding Peptamen Intense VHP 07/10/25 0400 Tube Feeding Method Continuous per pump 07/09/25 2000 Tube Feeding Bag Changed Yes 07/09/25 1205 Free water/flush (mL) 60 mL 07/10/25 0800 Intake (mL) 49 mL 07/10/25 0000 [REMOVED] NG/OG [place] Sump 14 Fr Left nostril (Removed) Placement Verification distal tube length;X-ray 07/10/25 1200 Tube Placement Length Marking (cm) 60 07/10/25 1200 Site Assessment Clean;Dry;Intact 07/10/25 1200 Surrounding Skin Dry;Intact 07/10/25 1200 Secured by Tape 07/10/25 1200 Secured Location Left Nostril 07/10/25 1200 NG/OG Status Clamped 07/10/25 1200 NG/OG Interventions Skin assessed;Air injected into blue air vent port;Clamped 07/10/25 1200 Tape Change/Repostion Date 07/10/25 07/10/25 1200 Tape Change/Repostion Time 1130 07/10/25 1200 Specimen: None Findings: Patient with healthy appearing wound without visible necrotic tissue or purulence. Indications: Cristina Brown is an 50 y.o. female Narrative: After obtaining informed consent the patient was transported to the operating room and placed supine on the operating room table. General anesthesia was established. Timeout was performed to assure correct patient and procedure. The patient was prepped and draped in standard sterile fashion and procedure was initiated. The exposed subcutaneous tissue and muscle were healthy appearing and did not require further debridement. After washing out the wound, we elected to close the lateraland medial aspects of the wound with interrupted nylon horizontal mattress sutures. This came together without significant tension. After partial closure, the wound measured approximately 55 x 20 x 2cm. We irrigated again and then packed the wound with saline moistened kerlix x2 and covered it with ABDs. All counts were correct at the end of the case.The patient was woken from general anesthesia, extubated, and transported to the PACU in stable condition. There were NO signs of surgical site infection (SSI) present at the time of surgery (PATOS). Complications: None; patient tolerated the procedure well. Submitted by: Janell Cross MD - 07/14/2025 I was present during all critical and hebert portions of the procedure(s) and immediately available [facility] services the entire duration. See resident note for details. Anne Franco MD * Consults - Mary Luong RN - 07/14/2025 9:36 AM EDTAssociated Order(s): IP CONSULT TO ADULT VASCULAR ACCESS TEAM VAT consulted for assistance with lab draw. Labs obtained x 1 attempt with butterfly needle to right AC. Specimen labeled at bedside and tubed to lab. * Assessment & Plan Note - Jason Andre MD - 07/14/2025 7:31 AM EDT Associated Problem(s): Necrotizing fasciitis (CMS/HCC) - 07/09: debridement of necrotizing fasciitis in right lower extremity, groin, pubis, and abdominalwall of skin, subcutaneous tissue, and muscle fascia - 07/10: repeat irrigation and debridement of RLE necrotizing fasciitis - 07/11: wound washout, no debridement necessary Admitted to ICU for postoperative monitoring. - 07/13: Downgraded to floor On IV Linezolid Daily dressing changes, PRN Dilaudid available. Possibly d/c Linezolid pending wound eval PT/OT eval pending * Assessment & Plan Note - Jason Andre MD - 07/14/2025 7:31 AM EDT Associated Problem(s): DM (diabetes mellitus) - Patient presenting with significant hyperglycemia, requiring an insulin drip on admission. - Currently off insulin drip Pharmacy to dose insulin Glargine 10U, Lispro correction and nighttime dosing. Carbohydrate restricted diet * Assessment & Plan Note - Jason Andre MD - 07/14/2025 7:31 AM EDT Associated Problem(s): Hidradenitis Follows with outpatient provider * Assessment & Plan Note - Jason Andre MD - 07/14/2025 7:31 AM EDT Associated Problem(s): Smoker - Patient smokes 0.5-1ppd. - Smoking cessation when appropriate. * Assessment & Plan Note - Jason Andre MD - 07/14/2025 7:31 AM EDT Associated Problem(s): Chronic obstructive pulmonary disease, unspecified Complicates care. Continue Albuterol and DuoNebs. 3L Nasal cannula, continue to wean as tolerated Monitor respiratory status clinically * Assessment & Plan Note - Jason Andre MD - 07/14/2025 7:31 AM EDT Associated Problem(s): HTN (hypertension), benign Restart home meds as appropriate * Assessment & Plan Note - Jason Andre MD - 07/14/2025 7:31 AM EDT Associated Problem(s): Depression Home Duloxetine * Assessment & Plan Note - Jason Andre MD - 07/14/2025 7:31 AM EDT Associated Problem(s): Morbid (severe) obesity due to excess calories (CMS/HCC) Complicates all aspect of care * Assessment & Plan Note - Jason Andre MD - 07/14/2025 7:31 AM EDT Associated Problem(s): Urge incontinence Patient currently with a montalvo catheter. Remove when able. * Assessment & Plan Note - Jason Andre MD - 07/14/2025 7:31 AM EDT Associated Problem(s): Absence seizure (CMS/HCC) - On Lamictal 50mg BID at home. Restarted 07/09. * Assessment & Plan Note - Jason Andre MD - 07/14/2025 7:31 AM EDT Associated Problem(s): Acute respiratory failure CPAP at night for suspected sleep apnea Lasix PRN for pulmonary edema and to help with breathing Improving, will continue to monitor * Assessment & Plan Note - Jason Andre MD - 07/14/2025 7:31 AM EDT Associated Problem(s): Septic shock (CMS/HCC) Septic shock secondary to necrotizing fascitis. Required Levophed and Vasopressin for circulatory support. Currently off pressor support, continue to monitor pressures. * Assessment & Plan Note - Jason Andre MD - 07/14/2025 7:31 AM EDT Associated Problem(s): HLD (hyperlipidemia) Home Rosuvastatin * Assessment & Plan Note - Jason Andre MD - 07/14/2025 7:31 AM EDT Associated Problem(s): JOSEP (obstructive sleep apnea) CPAP at night * Assessment & Plan Note - Jason Andre MD - 07/14/2025 7:31 AM EDT Associated Problem(s): Postoperative pain MMPC * Progress Notes - Jason Andre MD - 07/14/2025 7:30 AM EDT 07/14/25 Cristina Brown HPI 50-year-old female with past medical history of absence seizure, hidradenitis suppurative, hypertension, type 2 diabetes, obesity, and tobacco use disorder, and newly diagnosed JOSEP who presented to the emergency department with leukocytosis and exam findings consistent with necrotizing fasciitis. - 07/09: debridement of necrotizing fasciitis in right lower extremity, groin, pubis, and abdominalwall of skin, subcutaneous tissue, and muscle fascia - 07/10: repeat irrigation and debridement of RLE necrotizing fasciitis - 07/11: wound washout, no debridement necessary Overnight: NAEON. Interval: VSS, afebrile. Patient doing well overnight. 3L nasal cannula. UOP 3,350 montalvo. Having bowel movements. States she feels well today. Edited by: Jason Andre MD at 07/14/2025 0730 Relevant review of systems was obtained as able and is negative unless stated above in HPI. Vital signs: Vitals: 07/14/25 0725 BP: 108/68 Pulse: 90 Resp: Temp: 36.3 ??C (97.4 ??F) SpO2: 93% Physical Exam Constitutional: Appearance: Normal appearance. Interventions: Nasal cannula in place. HENT: Head: Normocephalic. Right Ear: External ear normal. Left Ear: External ear normal. Eyes: Extraocular Movements: Extraocular movements intact. Conjunctiva/sclera: Conjunctivae normal. Pulmonary: Effort: Pulmonary effort is normal. Abdominal: General: Abdomen is flat. Palpations: Abdomen is soft. Skin: General: Skin is warm and dry. Findings: Wound present. Neurological: Mental Status: She is alert. Psychiatric: Mood and Affect: Mood normal. Behavior: Behavior normal. Intake/Output Summary (Last 24 hours) at 07/14/2025 0730 Last data filed at 07/14/2025 0600 Gross per 24 hour Intake 696.4 ml Output 3350 ml Net -2653.6 ml Lines/Drains/Tubes: Patient Lines/Drains/Airways Status Active Airway None Output by Drain (mL) 07/12/25 07 - 07/12/25 1859 07/12/25 190 - 07/13/25 0659 07/13/25 07 - 07/13/25 1859 07/13/25 190 - 07/14/25 0659 07/14/25 07 - 07/14/25 0730 Requested LDAs do not have output data documented. Labs in last 18 hours: CBC WBC ?? Hb ?? Plt ?? Hct ?? ANC ?? INR ??, PTT ??, Anti-Xa ?? MCV ?? BMP Na ?? Cl ?? BUN ?? Glu ?? K ?? Co2 ?? Cr ?? Ca ?? iCa ?? Mg ??, Phos ?? Lactate ?? LFT AST ?? AlkPhos ?? T Prot ?? ALK ?? Bili ?? Alb ?? D.Bili ?? Lab Trends: H/H Results from last 7 days Lab Units 07/13/25 1021 07/12/25 0025 07/11/25 0009 HEMOGLOBIN g/dL 10.2* 9.3* 10.1* HEMATOCRIT % 32.3* 29.8* 32.1* INR Results from last 7 days Lab Units 07/08/25 2353 07/08/25 1814 INR 1.2* 1.2* Cr Results from last 7 days Lab Units 07/13/25 1021 07/12/25 0025 07/11/25 0009 CREATININE mg/dL 0.62 0.84 0.99 Medications reviewed. Vital signs reviewed. Labs reviewed. Radiography reviewed. Assessment and Plan: Assessment & Plan Necrotizing fasciitis (CMS/HCC) Present on Admission: Yes - 07/09: debridement of necrotizing fasciitis in right lower extremity, groin, pubis, and abdominalwall of skin, subcutaneous tissue, and muscle fascia - 07/10: repeat irrigation and debridement of RLE necrotizing fasciitis - 07/11: wound washout, no debridement necessary Admitted to ICU for postoperative monitoring. - 07/13: Downgraded to floor On IV Linezolid Daily dressing changes, PRN Dilaudid available. Possibly d/c Linezolid pending wound eval PT/OT eval pending DM (diabetes mellitus) (CMS/HCC) Present on Admission: Yes - Patient presenting with significant hyperglycemia, requiring an insulin drip on admission. - Currently off insulin drip Pharmacy to dose insulin Glargine 10U, Lispro correction and nighttime dosing. Carbohydrate restricted diet Hidradenitis Present on Admission: Yes Follows with outpatient provider Smoker Present on Admission: Yes - Patient smokes 0.5-1ppd. - Smoking cessation when appropriate. Chronic obstructive pulmonary disease, unspecified (CMS/HCC) Present on Admission: Yes Complicates care. Continue Albuterol and DuoNebs. 3L Nasal cannula, continue to wean as tolerated Monitor respiratory status clinically HTN (hypertension), benign Present on Admission: Yes Restart home meds as appropriate Depression Present on Admission: Yes Home Duloxetine Morbid (severe) obesity due to excess calories (CMS/HCC) Present on Admission: Yes Complicates all aspect of care Urge incontinence Present on Admission: Yes Patient currently with a montalvo catheter. Remove when able. Absence seizure (CMS/HCC) Present on Admission: Yes - On Lamictal 50mg BID at home. Restarted 07/09. Acute respiratory failure Present on Admission: Yes CPAP at night for suspected sleep apnea Lasix PRN for pulmonary edema and to help with breathing Improving, will continue to monitor Septic shock (CMS/HCC) Present on Admission: Yes Septic shock secondary to necrotizing fascitis. Required Levophed and Vasopressin for circulatory support. Currently off pressor support, continue to monitor pressures. HLD (hyperlipidemia) Present on Admission: Yes Home Rosuvastatin JOSEP (obstructive sleep apnea) Present on Admission: No CPAP at night Postoperative pain Present on Admission: Unknown [facility] Non-Hospital Problems Carpal tunnel syndrome Dehydration Hidradenitis suppurativa History of hysterectomy Marijuana smoker Pharyngitis Type 2 diabetes mellitus Overview Signed 08/31/2023 9:36 AM by Janell Bueno Last Assessment & Plan: Condition: stable Discussed glucose control targets. Educated on: Lifestyle changes Follow up in: three months with PCP Vitamin D deficiency Overview Signed 08/31/2023 9:36 AM by Janell Bueno Last Assessment & Plan: Condition: stable Follow up in: three months Wound dehiscence Stress incontinence Nocturia Plan: - Dilaudid PRN for dressing changes. - Dressing changes BID. - CPAP at night for JOSEP. - WBC uptrending, pt asymptomatic - May go to OR 07/14 for I&D, partial closure, [place] placement. Dispo: AR. Not MR, pending wound closure. Edited by: Jason Andre MD at 07/14/2025 4732 Jason Andre MD Cosigned by Anne Franco MD at 07/17/2025 12:16 PM EDT Associated attestation - Anne Franco MD - 07/17/2025 12:16 PM EDT I saw and evaluated the patient with the resident/fellow. I discussed the case with the resident/fellow and agree with the findings and plan as documented. * Care Plan - Rita Alejandro RN - 07/14/2025 12:20 AM EDT Problem: Adult Inpatient Plan of Care Goal: Plan of Care Review Outcome: Ongoing, Progressing Flowsheets (Taken 07/14/2025 0017) Progress: improving Plan of Care Reviewed With: patient Goal: Patient-Specific Goal (Individualized) Outcome: Ongoing, Progressing Flowsheets (Taken 07/13/20251999) Patient/Family-Specific Goals (Include Timeframe): pt will remain free from injury throughout entire shift Individualized Care Needs: safety management Anxieties, Fears or Concerns: loss of independence Goal: Absence of Hospital-Acquired Illness or Injury Outcome: Ongoing, Progressing Intervention: Identify and Manage Fall Risk Flowsheets (Taken 07/13/20251999) Safety Promotion/Fall Prevention: activity supervised clutter-free environment maintained assistive device/personal items within reach fall prevention program maintained nonskid shoes/slippers when out of bed room organization consistent safety round/check completed toileting scheduled Problem: Skin Injury Risk Increased Goal: Skin Health and Integrity Outcome: Ongoing, Progressing Intervention: Promote and Optimize Oral Intake Flowsheets Taken 07/13/2025 1827 by Leatha Watkins RN Oral Nutrition Promotion: rest periods promoted Taken 07/12/2025 1336 by Jeana Bear Nutrition Interventions: diet adjusted Problem: Fall Injury Risk Goal: Absence of Fall and Fall-Related Injury Outcome: Ongoing, Progressing Intervention: Promote Injury-Free Environment Flowsheets (Taken 07/13/20251999) Safety Promotion/Fall Prevention: activity supervised clutter-free environment maintained assistive device/personal items within reach fall prevention program maintained nonskid shoes/slippers when out of bed room organization consistent safety round/check completed toileting scheduled Problem: Wound Goal: Optimal Coping Outcome: Ongoing, Progressing Goal: Optimal Pain Control and Function Outcome: Ongoing, Progressing Intervention: Prevent or Manage Pain Flowsheets Taken 07/13/20252126 by Rita Alejandro RN Pain Management Interventions: medication (see MAR) Taken 07/13/20251826 by Leatha Watkins RN Sleep/Rest Enhancement: awakenings minimized Goal: Skin Health and Integrity Outcome: Ongoing, Progressing Intervention: Optimize Skin Protection Flowsheets Taken 07/13/20251999 by Yenny Tong Activity Management: back to bed Head of Bed (HOB) Positioning: HOB at 30-45 degrees Taken 07/09/20252246 by Cheyanne Briceño RN Pressure Reduction Devices: alternating pressure pump (MARLA) positioning supports utilized foam padding utilized specialty bed utilized Taken 07/09/2025 144 by Jeana Bear Pressure Reduction Techniques: heels elevated off bed weight shift assistance provided Goal: Optimal Wound Healing Outcome: Ongoing, Progressing Intervention: Promote Wound Healing Flowsheets (Taken 07/13/20251826 by Leatha Watkins RN) Sleep/Rest Enhancement: awakenings minimized * Care Plan - Leatha Watkins RN - 07/13/2025 6:30 PM EDT Problem: Adult Inpatient Plan of Care Goal: Plan of Care Review Outcome: Ongoing, Progressing Flowsheets (Taken 07/13/20251826) Progress: improving Plan of Care Reviewed With: patient Goal: Patient-Specific Goal (Individualized) Outcome: Ongoing, Progressing Flowsheets (Taken 07/13/20251826) Patient/Family-Specific Goals (Include Timeframe): pt will remain free from injury this shift Individualized Care Needs: safety Anxieties, Fears or Concerns: none stated Goal: Absence of Hospital-Acquired Illness or Injury Outcome: Ongoing, Progressing Intervention: Identify and Manage Fall Risk Flowsheets (Taken 07/13/20251826) Safety Promotion/Fall Prevention: activity supervised clutter-free environment maintained Intervention: Prevent Skin Injury Flowsheets (Taken 07/13/20251826) Body Position: weight shifting Intervention: Prevent and Manage VTE (Venous Thromboembolism) Risk Flowsheets (Taken 07/13/20251826) VTE Prevention/Management: medication Intervention: Prevent Infection Flowsheets (Taken 07/13/20251826) Infection Prevention: hand hygiene promoted Goal: Optimal Comfort and Wellbeing Outcome: Ongoing, Progressing Intervention: Monitor Pain and Promote Comfort Flowsheets (Taken 07/13/20251826) Pain Management Interventions: medication (see MAR) Intervention: Provide Person-Centered Care Flowsheets (Taken 07/13/20251826) Trust Relationship/Rapport: care explained Problem: Mechanical Ventilation Invasive Goal: Optimal Nutrition Delivery Outcome: Ongoing, Progressing Problem: Skin Injury Risk Increased Goal: Skin Health and Integrity Outcome: Ongoing, Progressing Intervention: Optimize Skin Protection Flowsheets (Taken 07/13/20251826) Activity Management: up in chair Head of Bed (HOB) Positioning: HOB at 30-45 degrees Intervention: Promote and Optimize Oral Intake Flowsheets (Taken 07/13/20251826) Oral Nutrition Promotion: rest periods promoted Problem: Infection Goal: Absence of Infection Signs and Symptoms Outcome: Ongoing, Progressing Intervention: Prevent or Manage Infection Flowsheets (Taken 07/13/20251826) Infection Management: aseptic technique maintained Problem: Fall Injury Risk Goal: Absence of Fall and Fall-Related Injury Outcome: Ongoing, Progressing Intervention: Identify and Manage Contributors Flowsheets (Taken 07/13/20251826) Self-Care Promotion: BADL personal objects within reach Intervention: Promote Injury-Free Environment Flowsheets (Taken 07/13/20251826) Safety Promotion/Fall Prevention: activity supervised clutter-free environment maintained Problem: Self-Care Deficit Goal: Improved Ability to Complete Activities of Daily Living Outcome: Ongoing, Progressing Intervention: Promote Activity and Functional Tonica Flowsheets (Taken 07/13/20251826) Activity Assistance Provided: assistance, 1 person Self-Care Promotion: BADL personal objects within reach Problem: Wound Goal: Optimal Coping Outcome: Ongoing, Progressing Intervention: Support Patient and Family Response Flowsheets (Taken 07/13/20251826) Supportive Measures: active listening utilized Family/Support System Care: self-care encouraged Goal: Optimal Functional Ability Outcome: Ongoing, Progressing Intervention: Optimize Functional Ability Flowsheets (Taken 07/13/20251826) Activity Management: up in chair Activity Assistance Provided: assistance, 1 person Goal: Absence of Infection Signs and Symptoms Outcome: Ongoing, Progressing Intervention: Prevent or Manage Infection Flowsheets (Taken 07/13/20251826) Infection Management: aseptic technique maintained Goal: Improved Oral Intake Outcome: Ongoing, Progressing Intervention: Promote and Optimize Oral Intake Flowsheets (Taken 07/13/20251826) Oral Nutrition Promotion: rest periods promoted Goal: Optimal Pain Control and Function Outcome: Ongoing, Progressing Intervention: Prevent or Manage Pain Flowsheets (Taken 07/13/20251826) Pain Management Interventions: medication (see MAR) Sleep/Rest Enhancement: awakenings minimized Goal: Skin Health and Integrity Outcome: Ongoing, Progressing Intervention: Optimize Skin Protection Flowsheets (Taken 07/13/20251826) Activity Management: up in chair Head of Bed (HOB) Positioning: HOB at 30-45 degrees Goal: Optimal Wound Healing Outcome: Ongoing, Progressing Intervention: Promote Wound Healing Flowsheets (Taken 07/13/20251826) Sleep/Rest Enhancement: awakenings minimized * Progress Notes - Marilee Oliveira RN - 07/13/2025 3:22 PM EDT Case Management Adult Initial Progress Note Cristina Brown 50 y.o. female CSN: [id number] Admission: 07/08/2025 5:58 PM Primary Problem: Necrotizing fasciitis (CMS/HCC) Plug Shaper Hand reviewed chart and spoke with Cristina to complete this Initial Case Management Assessment. PCP: Yenny Dhillon APRN Emergency Contact: Extended Emergency Contact Information Primary Emergency Contact: Yecenia Lake Mobile Relation: Sister Preferred language: [place] Citizen Order Checker Packer Processer needed? No Secondary Emergency Contact: Arnoldo Raymond Address: [address] [place] [address] of [facility] Mobile Relation: Significant Other Preferred language: [place] Citizen Order Checker Packer Processer needed? No Insurance: Primary Visit Coverage Payer Plan Sponsor Code Group Number Group Name [facility] MEDICAID [facility] MEDICAID [facility] Primary Visit Coverage Subscriber Subscriber ID Subscriber Name Subscriber SSN Subscriber Address [id number] CRISTINA BROWN [id number] [place] [address] Patient information: Primary Caregiver: Self Accompanied by/Relationship: Arnoldo Raymond- significant other Support System: Immediate family Daily Living Activities: Functional Status: Independent Living Arrangements: Spouse/Significant other Type of Residence: Private residence [address] [place] [id number] Current DME: Equipment Currently Used at Home: none Income Information: Housing Circumstances-Z Codes: Patient Referred to: Anticipated Discharge Date: unknown Patient's Discharge Goal: Referrals sent for Acute Rehab Assistance Available at Discharge: Arnoldo Raymond Discharge Transport: Arnoldo Raymond Follow Up Transport: Arnoldo raymond Home Health / Home Infusion / Outpatient Dialysis Services: none Living Will/Advance Directive/Power of Shipping/Receiving Manager /Guardian: Additional Comments: CM discussed acute rehab placement with Cristina and Arnoldo Raymond. Their first choice is [facility] in [place], [place]. CM sent referrals in [facility]. Cristina will continue inpatient management for necrotizing fascitis in right lower extremity until placement in acute rehab. Cristina has support once discharged from acute rehab at home. Cristina does have concerns if she needs to move and may need resources. CMstated to ask for resources if needed. Marilee Oliveira RN * Significant Event - Jatin Miller MD - 07/13/2025 2:50 PM EDT Images from the original note were not included. Emergency General Surgery Interim Note Provider present at beside for dressing change and wound evaluation. With the assistance of nursing, previous dressing was taken down to expose wound (see photos). Wound was dressed with wet-to-dry dressings consistent of 2 Kerlix padded with ABDs. Plan: - Continue wet-to-dry dressing changes BID. - Please see progress notes for additional planning. Jatin Miller MD Plastic and Reconstructive Surgery, PGY-1 * Assessment & Plan Note - Jatin Miller MD - 07/13/2025 12:36 PM EDT Associated Problem(s): DM (diabetes mellitus) - Patient presenting with significant hyperglycemia, requiring an insulin drip on admission. - Currently off insulin drip Pharmacy to dose insulin Glargine 10U, Lispro correction and nighttime dosing. Carbohydrate restricted diet * Assessment & Plan Note - Jatin Miller MD - 07/13/2025 12:36 PM EDT Associated Problem(s): Necrotizing fasciitis (CMS/HCC) - 07/09: debridement of necrotizing fasciitis in right lower extremity, groin, pubis, and abdominalwall of skin, subcutaneous tissue, and muscle fascia - 07/10: repeat irrigation and debridement of RLE necrotizing fasciitis - 07/11: wound washout, no debridement necessary Admitted to ICU for postoperative monitoring. - 07/13: Downgraded to floor On IV Linezolid Daily dressing changes, PRN Dilaudid available. Possibly d/c Linezolid pending wound eval PT/OT eval pending * Assessment & Plan Note - Jatin Miller MD - 07/13/2025 12:36 PM EDT Associated Problem(s): Hidradenitis Follows with outpatient provider * Assessment & Plan Note - Jatin Miller MD - 07/13/2025 12:36 PM EDT Associated Problem(s): Chronic obstructive pulmonary disease, unspecified Complicates care. Continue Albuterol and DuoNebs. 3L Nasal cannula, continue to wean as tolerated Monitor respiratory status clinically * Assessment & Plan Note - Jatin Miller MD - 07/13/2025 12:36 PM EDT Associated Problem(s): HTN (hypertension), benign Restart home meds as appropriate * Assessment & Plan Note - Jatin Miller MD - 07/13/2025 12:36 PM EDT Associated Problem(s): Depression Home Duloxetine * Assessment & Plan Note - Jatin Miller MD - 07/13/2025 12:36 PM EDT Associated Problem(s): Morbid (severe) obesity due to excess calories (CMS/[facility]) Complicates all aspect of care * Assessment & Plan Note - Jatin Miller MD - 07/13/2025 12:36 PM EDT Associated Problem(s): Acute respiratory failure CPAP at night for suspected sleep apnea Lasix PRN for pulmonary edema and to help with breathing Improving, will continue to monitor * Assessment & Plan Note - Jatin Millre MD - 07/13/2025 12:36 PM EDT Associated Problem(s): Septic shock (CMS/HCC) Septic shock secondary to necrotizing fascitis. Required Levophed and Vasopressin for circulatory support. Currently off pressor support, continue to monitor pressures. * Assessment & Plan Note - Jatin Miller MD - 07/13/2025 12:36 PM EDT Associated Problem(s): HLD (hyperlipidemia) Home Rosuvastatin * Assessment & Plan Note - Jatin Miller MD - 07/13/2025 12:36 PM EDT Associated Problem(s): JOSEP (obstructive sleep apnea) CPAP at night * Assessment & Plan Note - aJtin Miller MD - 07/13/2025 12:36 PM EDT Associated Problem(s): Postoperative pain MMPC * Progress Notes - Aparna Shultz - 07/13/2025 11:59 AM EDT Occupational Therapy Evaluation Patient Name: Cristina Brown Today's Date: 07/13/2025 OT Discharge Recommendations: Acute rehab Equipment Recommended: Defer to facility History Cristina Brown is 50 y.o. female admitted 07/08/2025 for work-up of Necrotizing fasciitis (CMS/HCC). Problem List Active Hospital Problems Diagnosis Date Noted Postoperative pain 07/13/2025 JOSEP (obstructive sleep apnea) 07/11/2025 HLD (hyperlipidemia) 07/10/2025 Acute respiratory failure 07/09/2025 Septic shock (CMS/HCC) 07/09/2025 Absence seizure ([facility]) 07/09/2025 DM (diabetes mellitus) ([facility]) 07/08/2025 Hidradenitis 07/08/2025 HTN (hypertension), benign 08/31/2023 Urge incontinence 08/31/2023 Smoker 06/09/2023 Depression 06/09/2023 Morbid (severe) obesity due to excess calories ([facility]) 02/15/2022 Chronic obstructive pulmonary disease, unspecified ([facility]) 01/09/2022 Necrotizing fasciitis ([facility]) 07/08/2025 Procedures 07/11/2025 Procedure(s): APPLICATION OR REPLACEMENT, WOUND VAC Past Medical History Patient has a past medical history of Anxiety, Asthma, Carpal tunnel syndrome, Depression, Diabetes([facility]), H/O absence seizures, Hidradenitis, High cholesterol, Hypertension, Postoperative pain (07/13/2025), Sleep apnea, and Smoker. Past Surgical History Patient has a past surgical history that includes Hand surgery (Left, 2022); Hysterectomy (2005); Tonsilectomy, adenoidectomy, bilateral myringotomy and tubes (1991); Cholecystectomy (1994); and Carpal tunnel release. Precautions Medical Precautions: Fall precautions Medical Precautions: Patient has a large wound secondary to necrotizing fascitis on her RLE/groin/pubis/abdominal wall s/p multiple debridements and washout to subcutaneous tissue and muscle fascia. Patient currently does not have a wound vac on - therefore dressing at risk for falling off due to drainage when up mobilizing. Subjective Patient agreeable to Occupational Therapy evaluation. Participants in Care Family/Caregiver Present: No Order Checker Packer Processer: Not Applicable Presentation Oxygen Therapy: Supplemental oxygen O2 Delivery Method: Nasal cannula O2 Flow Rate (L/min): 3 L/min Lines and Tubes: Telemetry, Intravenous access, Urinary catheter (pulse ox, SCDs) Pre-Session: Head of bed elevated, Supine, Lines intact Pre-Session Comments: RN agreeable to therapy evaluation + reports provider will be coming to do her dressing change. Post-Session: Sitting in chair, Call light in reach, RN notified, Lines intact, Chair alarm Post-Session Comments: Pt positioned for comfort. All needs met/within reach. Home Living/Set-up Lives With: Significant other (fiance + his mother, god brother + his and dad) Home Type: House Home Adaptive Equipment: None Home Layout: Two level, Able to live on one level with bedroom/bathroom, Stairs to enter with rails Number of Stairs: 4 (center rail - but it's not very sturdy/stable per pt report) Bathroom: Tub/Shower: Tub/Shower combo, Handheld shower head Bathroom: Toilet: Standard Bathroom: Accessibility: Accessible via walker Home Living Comments: Still driving, not working. Should have someone available to assist her at home, but dheeraj does work. Prior Level of Function Receives Help From: No assist required prior to admission Level of Mobility: Ambulatory- community Mobility Tonica: Independent gait without device History of Falls: No ( Not that I can remember. ) ADL Performance: Independent Patient/Family Goals Statement Pt is eager to regain independence. Objective Pain Pain Score (0-10): initially 5/10 decreasing to 4/10 at end of session Location: right LE Intervention: position adjusted, pillow support provided, and emotional support provided Response: comfortable at end of session and improved after session Delirium Screening RASS: Alert and calm Confusion Assessment Method-ICU (CAM-ICU/PCAM-ICU) Feature 3: Altered Level of Consciousness: Negative Cognition Overall Cognitive Status: Within Functional Limits Arousal/Alertness: Appropriate responses to stimuli Mood/Behavior: Alert Orientation Level: Oriented X4 Single Step Commands: Consistently Multi-Step Commands: Consistently Method of Communication: Verbal Vision - Basic Assessment Baseline Vision: Glasses reading Current Vision: Intact Right Upper Extremity Examination RUE ROM Assessment RUE Assessment: Within Functional Limits Manual Muscle Testing - RUE: Within functional limits Sensation Light Touch: Right Upper Extremity: Intact Left Upper Extremity Examination LUE ROM Assessment LUE Assessment: Within Functional Limits Manual Muscle Testing - LUE: Within functional limits Sensation Light Touch: Left Upper Extremity: Intact Right Lower Extremity Examination RLE ROM Assessment RLE Assessment: Exceptions to WFL (Patient able to move leg on her own, but has a massive open wound in her groin area - packed with kerlix/ABD pads and secured with foam tape.) Manual Muscle Testing - RLE: (Not formally tested due to large wound and pain present, but patient able to move leg on her own grossly ~ 3/5) Sensation Light Touch: Right Lower Extremity: Mild impairment (reports intermittent burning and constant tingling along medial knee + has also had some cramps ) Left Lower Extremity Examination LLE ROM Assessment LLE Assessment: Within Functional Limits Manual Muscle Testing: Within functional limits Sensation Light Touch: Left Lower Extremity: Intact Bed Mobility Bed Mobility Exam: Scooting/Bridging Level of Tonica: Contact guard (seated scoot once sitting up on EOB and able to wiggle back into recliner chair) Bed Mobility Exam: Supine to Sit Level of Tonica: Moderate assist (50% patient's effort) Physical/Nonphysical Assist: Verbal Cues, Moderate cues, Additional assist utilized for safety, HOBelevated Assistive Device: Other (PERSONAL PROPERTY APPRAISER x2) Transfers Transfer Interventions: Patient performed sit < > stand x 3 reps total: Mod A from EOB, Min Afrom recliner chair, and CGA from BSC. Transfer Exam: Sit to stand Level of Tonica: Minimum assist (75% patient's effort) Physical/Nonphysical Assist: Verbal Cues, Minimal cues Assistive Device: Walker, rolling (andrea) Transfer Exam: Stand to Sit Level of Tonica: Minimum assist (75% patient's effort) Physical/Nonphysical Assist: Verbal Cues, Minimal cues Assistive Device: Walker, rolling (andrea) Transfer Exam: Bed to Chair/Chair to Bed Level of Tonica: Minimum assist (75% patient's effort) Physical/Nonphysical Assist: Verbal Cues, Minimal cues, Additional assist utilized for safety Type of Transfer: Sidesteps (bed > chair < > BSC) Assistive Device: Walker, rolling (andrea) Toilet Transfer Level of Tonica: Minimum assist (75% patient's effort) Physical/Nonphysical Assist: Nonverbal cues (demo/gestures), Verbal Cues, Set-up required, Minimal cues Type of Transfer: Sidesteps, To bedside commode (ordered bariatric BSC from [employer] as patient had difficulty getting on/off BSC in room) Assistive Device: Walker, rolling Balance Static Sitting Balance Static Sitting-Balance Support: Feet supported Static Sitting-Level of Assistance: Standby assist Dynamic Sitting Balance Dynamic Sitting-Balance Support: Left upper extremity support, Right upper extremity support, Feet supported Dynamic Sitting-Balance: Lateral weight shifts, Anterior/Posterior weight shifts Level of Assistance: Contact guard Static Standing Balance Static Standing-Balance Support: Right upper extremity support, Left upper extremity support (RW) Static Standing-Level of Assistance: Contact guard Dynamic Standing Balance Dynamic Standing-Balance Support: Right upper extremity support, Left upper extremity support (RW) Dynamic Standing Level of Assistance: Minimum assistance Self-Care Interventions Self Care/Home Management (ADLs) Time Entry: 31 Self-Care Interventions: Pt actively participated in self-care interventions this date with an emphasis on functional mobility, endurance, and ADL retraining. Pt engaged in bed mobility, functional transfers, upper body dressing, and toileting ADLs to assess potential performance skill deficits impe ding occupational independence. Pt engaged in bed mobility tasks to prepare for participation in ADL activity. Pt completed supine to sit transition with mod assist and scooted to EOB with contact guard assist. Pt was provided with education on the role of OT in discharge planning and OT POC during hospitalization. Pt verbalized understanding of education provided. Increased time spent during session to allow bedside care to take placed (MANAGER WORK entering to take vitals; RN enforcing bandages to wound prior to transfers, etc). Pt benefited from skilled occupational therapy interventions including: Monitoring of vitals to ensure activity tolerance MIN verbal and tactile cues to facilitate sequencing during functional tasks Provision of increased time frames to support optimal level of pt participation Task/activity modification with grading as needed to achieve safety while also providing appropriate functional challenge Skilled organization and management of medical lines/tubes to reduce fall risk with mobility aspects of ADLs Environmental set-up to ensure safety and accessibility to all needed areas of treatment space Education on energy conservation and work simplification UE Dressing UE Dressing Level of Assistance: Minimum assistance UE Dressing Where Assessed: Bed level UE Dressing Interventions: Pt demonstrated the ability to attain bilateral UE ROM necessary to doffold gown and thread bilateral UE through new gown while in supine position. Pt required min A for dressing ADL in order to manipulate snaps and ties of gown. Toileting Toileting Level of Assistance: Maximum assistance Where Assessed: Bedside commode Toileting Interventions: Pt initially declining the need to utilize restroom/BSC this date so therapist facilitated engagement in simulated BSC transfer to address performance skills necessary for toileting ADL. Pt required moderate assistance to complete sit to stand portion of transfer from EOB with use of rolling walker. Pt required min multimodal cues to sequence side steps to recliner from EOB with min assistance. Pt required min assist and min verbal cues for hand placement and to ensure a controlled descent with stand to sit portion of transfer. Pt reporting that she had to use restroom at that time but reported increased fatigue and declined attempts to ambulate to restroom. In order to maximize safety with ADL participation, therapist elected to use BSC for toileting ADL. Pt completed a sit to stand transfer from recliner chair with min A and use of rolling walker. Pt required min A and min verbal cues to take sidesteps from recliner over to BSC. Pt completed a stand to sit transfer onto BSC with min A and min verbal cues to ensure a controlled descent. Increased time provided to allow pt to complete toileting ADL while seated on BSC. Pt completed a sit to stand transfer from BSC with CGA and use of rolling walker. Pt tolerated ~30 seconds of static standing with bilateral UE support on walker and CGA while therapist completed perineal care. Pt unable to complete perineal are this date secondary to pt need for consistent bilateral UE support on walker to maintain balance. Pt required min A to take sidesteps from BSC over to recliner chair with use of rolling walker. Pt completed a stand to sit transfer onto recliner chair with min A and min multimodal cues to ensure a controlled descent. Therapists collaborated with RN and were able to obtain a bariatric BSC for pt for further toileting ADL needs. Standardized Assessments [facility] 6-Click Daily Activities Help from Other: Don/Doff Regular Lower Body Clothings: A lot Help From Other: Bathing: A lot Help From Other: Toileting: A lot Help From Other: Don/Doff Upper Body Clothings: Little Help From Other: Grooming: None Help From Other: Eating Meals: None [facility] 6 Click - Daily Activities Score: 17 Assessment Pt tolerated session activities fair as evidenced by monitoring of vitals throughout session. Priorto admission pt was independent with occupational performance. Pt currently requires environmental modification, verbal cues, and physical assistance to maximize safety with engagement in functional activity secondary to limitations with strength, functional endurance, balance, and activity tolerance. Pt current performance skill deficits would limit rapid access to exit routes in home, bathroom if experiencing bowel/bladder urgency, and with other home safety scenarios. Pt would benefit from acute rehabilitation services in order to improve performance skill deficits and maximize occupational independence. Pt would continue to benefit from skilled inpatient OT intervention in order to facilitate safe occupational participation. OT Findings: Impaired ADL performance, Impaired functional mobility, Impaired IADL performance, Decreased endurance/ventilation/gas exchange, Impaired balance Evaluation/Treatment Tolerance: Patient limited by pain Rehab Potential: Good, to achieve stated therapy goals Eval Complexity Occupational Profile: Expanded review of medical/therapy records and additional review of physical,cognitive, or psychosocial history Performance Deficits: Activities of daily living (ADLs), Instrumental activities of daily living (IADLs), Rest and sleep, Work, Leisure, Motor skills, Habits, Routines, Roles Clinical Decision Making: Moderate Overall Eval complexity: Moderate OT Recommendations Discharge Destination: Acute rehab Discharge Equipment: Defer to facility Plan Planned OT Interventions ADL retraining, IADL retraining, Balance training, Bed mobility Training, Motor coordination training, Strengthening, Transfer training, Functional mobility, Caregiver education OT Frequency 2 - 5 times per week OT Duration 2 weeks Goals OT GOAL DETAILS Time Frame OT Goal 1: Pt will complete toilet transfer with LRAD and complete other components of toileting (perineal care, clothing management, etc.) with min A. 2 weeks OT Goal 2: Pt will complete full body dressing routine using AD/AE PRN with min A. 2 weeks OT Goal 3: Pt will stand at sink to complete at least 3 consecutive grooming tasks with CGA. 2 weeks OT Goal 4: Pt will be independent with UB HEP in order to maximize strength necessary for engagement in valued ADLs. 2 weeks OT Goal 5: Pt will engage in short household distance ambulation necessary for participation in higher level ADLs using LRAD with CGA. 2 weeks Written by Aparna Shultz on 07/13/25 at 1:47 PM. * Progress Notes - Madeline Grant, PT - 07/13/2025 11:58 AM EDT Physical Therapy Evaluation Patient Name: Cristina Brown Today's Date: 07/13/2025 PT Discharge Recommendations: Acute rehab Equipment Recommended: Defer to facility History Cristina Brown is 50 y.o. female admitted 07/08/2025 for work-up of Necrotizing fasciitis (CMS/HCC). Problem List Active Hospital Problems Diagnosis Date Noted Postoperative pain 07/13/2025 JOSEP (obstructive sleep apnea) 07/11/2025 HLD (hyperlipidemia) 07/10/2025 Acute respiratory failure 07/09/2025 Septic shock ([facility]) 07/09/2025 Absence seizure ([facility]) 07/09/2025 DM (diabetes mellitus) ([facility]) 07/08/2025 Hidradenitis 07/08/2025 HTN (hypertension), benign 08/31/2023 Urge incontinence 08/31/2023 Smoker 06/09/2023 Depression 06/09/2023 Morbid (severe) obesity due to excess calories ([facility]) 02/15/2022 Chronic obstructive pulmonary disease, unspecified ([facility]) 01/09/2022 Necrotizing fasciitis ([facility]) 07/08/2025 Procedures 07/11/2025 Procedure(s): APPLICATION OR REPLACEMENT, WOUND VAC Past Medical History Patient has a past medical history of Anxiety, Asthma, Carpal tunnel syndrome, Depression, Diabetes([facility]), H/O absence seizures, Hidradenitis, High cholesterol, Hypertension, Postoperative pain (07/13/2025), Sleep apnea, and Smoker. Past Surgical History Patient has a past surgical history that includes Hand surgery (Left, 2022); Hysterectomy (2005); Tonsilectomy, adenoidectomy, bilateral myringotomy and tubes (1991); Cholecystectomy (1994); and Carpal tunnel release. Precautions Medical Precautions: Fall precautions Medical Precautions: Patient has a large wound secondary to necrotizing fascitis on her RLE/groin/pubis/abdominal wall s/p multiple debridements and washout to subcutaneous tissue and muscle fascia. Patient currently does not have a wound vac on - therefore dressing at risk for falling off due to drainage when up mobilizing. May try mesh underwear to help hold things? Patient is 5'10 391lbs Subjective Patient reports she has sat up in the chair position in the bed, but has not been out of bed to therecliner chair yet. Agreeable to PT EVAL and eager to move. Participants in Care Family/Caregiver Present: No Order Checker Packer Processer: Not Applicable Presentation Oxygen Therapy: Supplemental oxygen O2 Delivery Method: Nasal cannula O2 Flow Rate (L/min): 3 L/min Lines and Tubes: Telemetry, Intravenous access, Urinary catheter (pulse ox, SCDs) Pre-Session: Head of bed elevated, Supine, Lines intact Pre-Session Comments: RN agreeable to therapy evaluation + reports provider will be coming to do her dressing change. Post-Session: Sitting in chair, Call light in reach, RN notified, Lines intact, Chair alarm, SCDs to LLE only Post-Session Comments: Patient reclined and positioned for comfort with needs in reach. RN aware ofsession details. Home Living/Set-up Lives With: Significant other (dheeraj + his mother, god brother + his and dad) Home Type: House Home Adaptive Equipment: None Home Layout: Two level, Able to live on one level with bedroom/bathroom, Stairs to enter with rails Number of Stairs: 4 (center rail - but it's not very sturdy/stable per pt report) Bathroom: Tub/Shower: Tub/Shower combo, Handheld shower head Bathroom: Toilet: Standard Bathroom: Accessibility: Accessible via walker Home Living Comments: Still driving, not working. Should have someone available to assist her at home, but dheeraj does work. Prior Level of Function Receives Help From: No assist required prior to admission Level of Mobility: Ambulatory- community Mobility Tonica: Independent gait without device History of Falls: No ( Not that I can remember. ) ADL Performance: Independent Patient/Family Goals Wound healing. Objective Vital Signs Pre-Session Post-Session Heart Rate (BPM) 92 97 O2 Saturation (%) 90 91 Blood Pressure (mmHG) 95 / 65 (75) --- Resp Rate (BPM) 14 21 Pain Patient reports 5/10 pain in right leg at rest in bed - states it's positional sometimes. Reported 4/10 in right leg once reclined in chair at end of session. RN aware and has IV pain meds to give patient prior to dressing change. Delirium Screening RASS: Alert and calm Confusion Assessment Method-ICU (CAM-ICU/PCAM-ICU) Feature 3: Altered Level of Consciousness: Negative Cognition Overall Cognitive Status: Within Functional Limits Arousal/Alertness: Appropriate responses to stimuli Mood/Behavior: Alert Orientation Level: Oriented X4 Single Step Commands: Consistently Multi-Step Commands: Consistently Method of Communication: Verbal Vision - Basic Assessment Baseline Vision: Glasses reading Current Vision: Intact Right Upper Extremity Examination RUE Assessment: Within Functional Limits Manual Muscle Testing - RUE: Within functional limits Sensation Light Touch: Right Upper Extremity: Intact Left Upper Extremity Examination LUE ROM Assessment LUE Assessment: Within Functional Limits Manual Muscle Testing - LUE Manual Muscle Testing - LUE: Within functional limits Sensation Light Touch: Left Upper Extremity: Intact Right Lower Extremity Examination RLE ROM Assessment RLE Assessment: Exceptions to WFL (Patient able to move leg on her own, but has a massive open wound in her groin area - packed with kerlix/ABD pads and secured with foam tape.) Manual Muscle Testing - RLE Manual Muscle Testing - RLE: (Not formally tested due to large wound and pain present, but patient able to move leg on her own grossly ~ 3/5) Sensation Light Touch: Right Lower Extremity: Mild impairment (reports intermittent burning and constant tingling along medial knee + has also had some cramps ) Left Lower Extremity Examination LLE Assessment: Within Functional Limits Manual Muscle Testing: Within functional limits Sensation Light Touch: Left Lower Extremity: Intact Therapeutic Activity (31 minutes) Patient participated in PT interventions targeting functional strength and endurance to improve mobility. See bed mobility, transfers, and ambulation sections for details. Additional time required for line management and room set- up for safe mobility. Once patient out of bed - linens stripped and replaced. PT providing safety cues throughout + progressing mobility + monitoring patient's overall tolerance to activity. Patient did state she felt short of breath after sitting upright on EOB. Patient normally does not require oxygen at home - currently on 3L/min O2 via nasal cannula with SpO2 in low 90's. Bed Mobility Bed Mobility Exam: Scooting/Bridging Level of Tonica: Contact guard (seated scoot once sitting up on EOB and able to wiggle back into recliner chair) Bed Mobility Exam: Supine to Sit Level of Tonica: Moderate assist (50% patient's effort) Physical/Nonphysical Assist: Verbal Cues, Moderate cues, Additional assist utilized for safety, HOBelevated Assistive Device: Other (PERSONAL PROPERTY APPRAISER x 2) Transfers Transfer Interventions: Patient performed sit < > stand x 3 reps total: Mod A from EOB, Min Afrom recliner chair, and CGA from BSC. Cues for safe hand placement during transitions using RW. Transfer Exam: Sit to stand Level of Tonica: Minimum assist (75% patient's effort) Physical/Nonphysical Assist: Verbal Cues, Minimal cues Assistive Device: Walker, rolling (andrea) Transfer Exam: Stand to Sit Level of Tonica: Minimum assist (75% patient's effort) Physical/Nonphysical Assist: Verbal Cues, Minimal cues Assistive Device: Walker, rolling (andrea) Transfer Exam: Bed to Chair/Chair to Bed Level of Tonica: Minimum assist (75% patient's effort) Physical/Nonphysical Assist: Verbal Cues, Minimal cues, Additional assist utilized for safety Type of Transfer: Sidesteps (bed > chair < > BSC) Assistive Device: Walker, rolling (andrea) Toilet Transfer Level of Tonica: Minimum assist (75% patient's effort) Physical/Nonphysical Assist: Set-up required, Verbal Cues Type of Transfer: Sidesteps, To bedside commode ([facility] as patient had difficulty getting on/off BSC in room) Assistive Device: Walker, rolling (andrea) Ambulation Device: Rolling walker (andrea) Assistance: Minimal verbal cues, Minimum assistance, Additional assist utilized for safety Distance : Patient able to take a few small side steps to get from bed > chair > BSC > chair Ambulation Comments: Defer further ambulation this date due to pain in RLE and dressing falling offand drainage leaking on floor. (Patient was due a dressing change per RN) Balance Static Sitting Balance Static Sitting-Balance Support: Feet supported Static Sitting-Level of Assistance: Standby assist Dynamic Sitting Balance Dynamic Sitting-Balance Support: Left upper extremity support, Right upper extremity support, Feet supported Dynamic Sitting-Balance: Lateral weight shifts, Anterior/Posterior weight shifts Level of Assistance: Contact guard Static Standing Balance Static Standing-Balance Support: Right upper extremity support, Left upper extremity support (RW) Static Standing-Level of Assistance: Contact guard Dynamic Standing Balance Dynamic Standing-Balance Support: Right upper extremity support, Left upper extremity support (RW) Dynamic Standing Level of Assistance: Minimum assistance Standardized Assessments Standardized Assessments Standardized Assessments: AMPAC 6-Clicks Mobility Assessment AMPAC 6-Clicks Mobility Assessment Difficulty patient has turning over in bed (including adjusting bedclothes, sheets, and blankets)?:A little Difficulty patient has sitting down on and standing up from a chair with arms (wheelchair, bedside commode, etc.)?: A little Difficulty patient has moving from lying on back to sitting on the side of the bed?: A lot How much help does the patient need moving to and from a bed to a chair (including a wheelchair)?: A little How much help does the patient need to walk in hospital room?: A little How much help does the patient need climbing 3-5 steps with a railing?: Unable [facility] 6-Clicks Mobility Assessment Total : 15 No data recorded Assessment Patient is not at her functional baseline and will continue to benefit from further skilled inpatient PT intervention during remainder of hospital stay to address identified impairments and progress towards independence with functional mobility. Patient would benefit from acute rehab to improve functional performance, decrease caregiver burden, increase overall safety, decrease fall risk, decrease risk of hospital readmission, and increase speed of recovery and return to return to prior level of function. Patient???s needs would not be metat a lower level of rehab due to home setup, inconducive burden on caregiver, and need for medical monitoring/attention and wound care. Prior to current hospital admission, patient was independent with all functional tasks; however, patient is now requiring significant assistance - including up to Moderate assistance with getting out of bed and standing, and limited ambulation using Rolling Walker device . If patient discharged home, without inpatient rehab stay, patient would face risks/barriers - including significant risk of fall(s), additional acquisition of traumatic injuries, hospital readmission, injury to caregiver(s), and inability to negotiate x 4 stairs to enter home. Impairments: Decreased endurance, ventilation, and/or gas exchange, Impaired gait dynamics/performance, Impaired postural/trunk control, Decreased strength, Pain, Decreased range of motion, Impaired locomotion, Impaired functional mobility/transfers, Impaired balance, Impaired sensation/sensory processing Activity Limitations: Inability to ambulate household distances, Inability to transfer independently, Inability to complete ADLs independently, Inability to ambulate independently, Inability to ambulate community distances Participation Restrictions: Self-care, Home management, Community leisure Activity Tolerance: Tolerates 30 min activity with multiple rests Evaluation/Treatment Tolerance: Patient limited by fatigue, Patient limited by pain Diagnosis: impaired functional mobility and decreased activity tolerance Rehab Potential: Good, to achieve stated therapy goals Barriers to Discharge: Comorbidities Eval Complexity History Profile: 3 or more personal factors and/or comorbidities Clinical Presentation: Evolving clinical presentation with changing characteristics Clinical Decision Making: Moderate complexity PT Recommendations Discharge Destination: Acute rehab Discharge Equipment: Defer to facility Plan Planned PT Interventions Balance training, Bed mobility training, Gait training, Transfer training, Strengthening, Functional Mobility, Caregiver training PT Frequency 2 - 5 times per week PT Duration 2 weeks Goals PT GOAL DETAILS Time Frame PT Goal 1: Patient will be CGA with bed mobility to ease caregiver burden. 2 weeks PT Goal 2: Patient will transfer sit < > stand with SBA and least assistive device to ease caregiver burden. 2 weeks PT Goal 3: Patient will ambulate 150' with least assistive device CGA for household distances. 2 weeks PT Goal 4: Patient will ascend/descend 4 stairs with 1 rail Min A to access home. (ONLY IF D/C HOME) 2 weeks Written by Madeline Grant, PT on 07/13/25 at 12:37 PM. * Hospital Course - Becky Graff APRN - 07/13/2025 10:42 AM EDT Cristina Brown is a 50 y.o. female with PMH of DM, hidradenitis supparativa, current smoker (1.5ppd), hx of absent seizures, UTI, depression, anxiety, asthma, HLD, celiac disease, presenting to [facility] on 07/08/2025 as transfer with concern for necrotizing fascitis. EGS consulted for evaluation. Currently not on pressors. Had received 3L fluids at OSH and was started on levo which has since been weaned off. Received vancomycin, cefelexine and clindamycin at OSH. Per patient, she had wound start in R medial thigh on that she originally thought was related to her HS and lanced with help of sister. However, the wound has worsened and she notes that it is ascending and descending onher thigh. On exam, has concern for necrotic tissue with foul smelling drainage, cellulitis and warmth with tenderness to palpation. WBC of 26. Lactate of 2.6. Cr of 2.2 at OSH. CMP here pending. No CT scan but exam concerning for nec fas. She notes she was recently on bactrim for UTI that she has finished. Currently on linezolid, cefepime and flagyl in ED. Off levo. Slightly hypotensive. Taken from admission H&P. Diagnosis: necrotizing fasciitis Surgery: 07/08 (Ty) Excisional debridement of right lower extremity, groin, pubis, and abdominal wallof skin, subcutaneous tissue, and muscle fascia 07/10 (Gerhard) Right groin wound exploration and washout 07/11 (Gerhard) Right groin/perineum/thigh/abdominal wound exploration and washout Follow up with [facility] with Lilliana Morfin APRN in 2 weeks for wound evaluation. Referral to Endocrinology (Ordered) Follow up with PCP within one week after discharge for post hospitalization visit and chronic disease management. Physical therapy and occupational therapy evaluated the patient during hospitalization and recommends acute rehab. At the time of discharge the patient was hemodynamically stable, tolerating PO, voiding spontaneously, normal bowel function, mobilizing appropriately, with their pain controlled with PO medication. At this time, the patient has obtained the maximum benefit from the present hospital stay, and so will be discharged to [facility]. * Assessment & Plan Note - Jatin Miller MD - 07/13/2025 7:51 AM EDT Associated Problem(s): Smoker - Patient smokes 0.5-1ppd. - Smoking cessation when appropriate. * Assessment & Plan Note - Jatin Miller MD - 07/13/2025 7:51 AM EDT Associated Problem(s): Absence seizure (CMS/HCC) - On Lamictal 50mg BID at home. Restarted 07/09. * Assessment & Plan Note - Jatin Miller MD - 07/13/2025 7:51 AM EDT Associated Problem(s): Urge incontinence Patient currently with a montalvo catheter. Remove when able. * Progress Notes - Jatin Miller MD - 07/13/2025 7:46 AM EDT 07/13/25 Cristina Brown HPI 50-year-old female with past medical history of absence seizure, hidradenitis suppurative, hypertension, type 2 diabetes, obesity, and tobacco use disorder, and newly diagnosed JOSEP who presented to the emergency department with leukocytosis and exam findings consistent with necrotizing fasciitis. - 07/09: debridement of necrotizing fasciitis in right lower extremity, groin, pubis, and abdominalwall of skin, subcutaneous tissue, and muscle fascia - 07/10: repeat irrigation and debridement of RLE necrotizing fasciitis - 07/11: wound washout, no debridement necessary Overnight: NAEON. Interval: VSS, afebrile. Patient doing well overnight. 3L nasal cannula. UOP 3,030 montalvo. 200 reported emesis. Having bowel movements. Edited by: Jatin Miller MD at 07/13/2025 0750 Relevant review of systems was obtained as able and is negative unless stated above in HPI. Vital signs: Vitals: 07/13/25 0731 BP: 120/75 Pulse: 87 Resp: Temp: 36.5 ??C (97.7 ??F) SpO2: 91% Physical Exam Constitutional: Appearance: Normal appearance. Interventions: Nasal cannula in place. HENT: Head: Normocephalic. Right Ear: External ear normal. Left Ear: External ear normal. Eyes: Extraocular Movements: Extraocular movements intact. Conjunctiva/sclera: Conjunctivae normal. Pulmonary: Effort: Pulmonary effort is normal. Abdominal: General: Abdomen is flat. Palpations: Abdomen is soft. Skin: General: Skin is warm and dry. Findings: Wound present. Comments: R proximal thigh. Covered by abd pads. Neurological: Mental Status: She is alert. Psychiatric: Mood and Affect: Mood normal. Behavior: Behavior normal. Intake/Output Summary (Last 24 hours) at 07/13/2025 0752 Last data filed at 07/13/2025 0000 Gross per 24 hour Intake 1720 ml Output 3230 ml Net -1510 ml Lines/Drains/Tubes: Patient Lines/Drains/Airways Status Active Airway None Output by Drain (mL) 07/11/25 0700 - 07/11/25 1859 07/11/25 1900 - 07/12/25 0659 07/12/25 0700 - 07/12/25 1859 07/12/25 1900 - 07/13/25 0659 07/13/25 0700 - 07/13/25 0752 Requested LDAs do not have output data documented. Labs in last 18 hours: CBC WBC ?? Hb ?? Plt ?? Hct ?? ANC ?? INR ??, PTT ??, Anti-Xa ?? MCV ?? BMP Na ?? Cl ?? BUN ?? Glu ?? K ?? Co2 ?? Cr ?? Ca ?? iCa ?? Mg ??, Phos ?? Lactate ?? LFT AST ?? AlkPhos ?? T Prot ?? ALK ?? Bili ?? Alb ?? D.Bili ?? Lab Trends: H/H Results from last 7 days Lab Units 07/12/25 0025 07/11/25 0009 07/10/25 0003 HEMOGLOBIN g/dL 9.3* 10.1* 10.6* HEMATOCRIT % 29.8* 32.1* 33.3* INR Results from last 7 days Lab Units 07/08/25 2353 07/08/25 1814 INR 1.2* 1.2* Cr Results from last 7 days Lab Units 07/12/25 0025 07/11/25 0009 07/10/25 0003 CREATININE mg/dL 0.84 0.99 1.25* Medications reviewed. Vital signs reviewed. Labs reviewed. Radiography reviewed. Assessment and Plan: Assessment & Plan Necrotizing fasciitis (CMS/HCC) Present on Admission: Yes - 07/09: debridement of necrotizing fasciitis in right lower extremity, groin, pubis, and abdominalwall of skin, subcutaneous tissue, and muscle fascia - 07/10: repeat irrigation and debridement of RLE necrotizing fasciitis - 07/11: wound washout, no debridement necessary Admitted to ICU for postoperative monitoring. - 07/13: Downgraded to floor On IV Linezolid Daily dressing changes, PRN Dilaudid available. Possibly d/c Linezolid pending wound eval PT/OT eval pending DM (diabetes mellitus) (CMS/HCC) Present on Admission: Yes - Patient presenting with significant hyperglycemia, requiring an insulin drip on admission. - Currently off insulin drip Pharmacy to dose insulin Glargine 10U, Lispro correction and nighttime dosing. Carbohydrate restricted diet Hidradenitis Present on Admission: Yes Follows with outpatient provider Smoker Present on Admission: Yes - Patient smokes 0.5-1ppd. - Smoking cessation when appropriate. Chronic obstructive pulmonary disease, unspecified (CMS/HCC) Present on Admission: Yes Complicates care. Continue Albuterol and DuoNebs. 3L Nasal cannula, continue to wean as tolerated Monitor respiratory status clinically HTN (hypertension), benign Present on Admission: Yes Restart home meds as appropriate Depression Present on Admission: Yes Home Duloxetine Morbid (severe) obesity due to excess calories (CMS/HCC) Present on Admission: Yes Complicates all aspect of care Urge incontinence Present on Admission: Yes Patient currently with a montalvo catheter. Remove when able. Absence seizure (CMS/HCC) Present on Admission: Yes - On Lamictal 50mg BID at home. Restarted 07/09. Acute respiratory failure Present on Admission: Yes CPAP at night for suspected sleep apnea Lasix PRN for pulmonary edema and to help with breathing Improving, will continue to monitor Septic shock (CMS/HCC) Present on Admission: Yes Septic shock secondary to necrotizing fascitis. Required Levophed and Vasopressin for circulatory support. Currently off pressor support, continue to monitor pressures. HLD (hyperlipidemia) Present on Admission: Yes Home Rosuvastatin JOSEP (obstructive sleep apnea) Present on Admission: No CPAP at night Postoperative pain Present on Admission: Unknown [facility] Non-Hospital Problems Carpal tunnel syndrome Dehydration Hidradenitis suppurativa History of hysterectomy Marijuana smoker Pharyngitis Type 2 diabetes mellitus Overview Signed 08/31/2023 9:36 AM by Janell Bueno Last Assessment & Plan: Condition: stable Discussed glucose control targets. Educated on: Lifestyle changes Follow up in: three months with PCP Vitamin D deficiency Overview Signed 08/31/2023 9:36 AM by Janell Bueno Last Assessment & Plan: Condition: stable Follow up in: three months Wound dehiscence Stress incontinence Nocturia Plan: [ ] f/u wound eval and AM labs, possibly d/c Linezolid. [ ] f/u labs, may give Lasix - Dilaudid PRN for dressing changes. - Dressing changes once daily. - CPAP at night for JOSEP. - f/u PT/OT recs Dispo: Edited by: Jatin Miller MD at 07/13/2025 0750 Landen Kidd Cosigned by Anne Franco MD at 07/17/2025 12:15 PM EDT Associated attestation - Anne Franco MD - 07/17/2025 12:15 PM EDT I saw and evaluated the patient with the resident/fellow. I discussed the case with the resident/fellow and agree with the findings and plan as documented. * Care Plan - Rita Alejandro RN - 07/13/2025 12:14 AM EDT Problem: Adult Inpatient Plan of Care Goal: Plan of Care Review Outcome: Ongoing, Progressing Flowsheets Taken 07/13/2025 0013 by Rita Alejandro RN Progress: improving Taken 07/12/2025 0340 by Jf Cruz Plan of Care Reviewed With: patient Goal: Patient-Specific Goal (Individualized) Outcome: Ongoing, Progressing Flowsheets (Taken 07/12/20251999) Patient/Family-Specific Goals (Include Timeframe): pt will rate pain at <5 this entire shift Individualized Care Needs: pain management Anxieties, Fears or Concerns: pain Goal: Absence of Hospital-Acquired Illness or Injury Outcome: Ongoing, Progressing Intervention: Prevent Skin Injury Flowsheets (Taken 07/12/20251999) Body Position: weight shifting Skin Protection: incontinence pads utilized Goal: Optimal Comfort and Wellbeing Outcome: Ongoing, Progressing Intervention: Provide Person-Centered Care Flowsheets (Taken 07/12/2025 1336 by Jeana Bear) Trust Relationship/Rapport: care explained choices provided emotional support provided empathic listening provided questions answered questions encouraged reassurance provided thoughts/feelings acknowledged Problem: Skin Injury Risk Increased Goal: Skin Health and Integrity Outcome: Ongoing, Progressing Intervention: Promote and Optimize Oral Intake Flowsheets (Taken 07/12/2025 1336 by Jeana Bear) Nutrition Interventions: diet adjusted Problem: Infection Goal: Absence of Infection Signs and Symptoms Outcome: Ongoing, Progressing Intervention: Prevent or Manage Infection Flowsheets Taken 07/12/20251999 by Rita Alejandro RN Isolation Precautions: precautions maintained protective Taken 07/11/2025 0118 by Cheyanne Briceño RN Infection Management: aseptic technique maintained Fever Reduction/Comfort Measures: lightweight clothing lightweight bedding Problem: Fall Injury Risk Goal: Absence of Fall and Fall-Related Injury Outcome: Ongoing, Progressing Intervention: Promote Injury-Free Environment Flowsheets (Taken 07/12/20251999) Safety Promotion/Fall Prevention: activity supervised clutter-free environment maintained * Procedures - Halima Live RN - 07/12/2025 3:51 PM EDTAssociated Order(s): Insert peripheral IV Insert peripheral IV Performed by: Halima Live RN Authorized by: Anne Franco MD Hand hygiene: Hand hygiene performed prior to insertion Inserted using aseptic techniques: Yes Preparation: Skin prepped with chg Orientation: Right Location: Forearm Catheter placed: Peripheral IV Catheter size: 20g/2.00in Line Technique: Ultrasound Guidance Number of attempts: 1 IV flushes: Without difficulty and positive blood return noted and IV luer locked Patient tolerance: There were no complications and patient tolerated the procedure well Patient comfort measures used: Position of comfort IV site covered with: Transparent semipermeable dressing (Skin prep used.) Education provided to: Patient Comments: Pertinent ultrasound and/or 3CG images sent to PACS. * Care Plan - Jeana Bear - 07/12/2025 1:38 PM EDT Problem: Adult Inpatient Plan of Care Goal: Absence of Hospital-Acquired Illness or Injury Outcome: Ongoing, Progressing Intervention: Prevent Skin Injury Flowsheets (Taken 07/12/2025 1336) Body Position: weight shifting Skin Protection: incontinence pads utilized Intervention: Prevent Infection Flowsheets (Taken 07/12/2025 1336) Infection Prevention: hand hygiene promoted Goal: Optimal Comfort and Wellbeing Outcome: Ongoing, Progressing Intervention: Monitor Pain and Promote Comfort Flowsheets (Taken 07/12/2025 0808) Pain Management Interventions: medication (see MAR) Intervention: Provide Person-Centered Care Flowsheets (Taken 07/12/2025 1336) Trust Relationship/Rapport: care explained choices provided emotional support provided empathic listening provided questions answered questions encouraged reassurance provided thoughts/feelings acknowledged Problem: Skin Injury Risk Increased Goal: Skin Health and Integrity Outcome: Ongoing, Progressing Intervention: Promote and Optimize Oral Intake Flowsheets (Taken 07/12/2025 1336) Nutrition Interventions: diet adjusted * Progress Notes - Annie Littlejohn - 07/12/2025 1:04 PM EDT SW attempted to complete the initial assmt and the pt was asleep and there was no family at bedside. SW will continue to f/u. * Progress Notes - Gabriel Segovia - 07/12/2025 10:28 AM EDT Surgical ICU Daily Progress Note 07/12/25 Cristina Brown [facility] 50-year-old female with past medical history of absence seizure, hidradenitis suppurative, hypertension, type 2 diabetes, obesity, and tobacco use disorder, and newly diagnosed JOSEP who presented to the emergency department with leukocytosis and exam findings consistent with necrotizing fasciitis. - 07/09: debridement of necrotizing fasciitis in right lower extremity, groin, pubis, and abdominalwall of skin, subcutaneous tissue, and muscle fascia - 07/10: repeat irrigation and debridement of RLE necrotizing fasciitis - 07/11: wound washout, no debridement necessary Overnight: NAEON. Interval: Weaning of high flow nasal canula. CXR to evaluate O2 needs. Adjusting abx for actinomyces coverage. Edited by: Gabriel Segovia at 07/12/2025 1403 Relevant review of systems was obtained as able and is negative unless stated above in HPI. Vital signs: Visit Vitals BP 108/53 Pulse 73 Temp 37.1 ??C (98.8 ??F) Resp 20 Ht 1.778 m (5' 10 ) Wt 177 kg (391 lb 1.5 oz) SpO2 92% BMI 56.12 kg/m?? Smoking Status Every Day BSA 2.96 m?? Intake/Output Summary (Last 24 hours) at 07/12/2025 1403 Last data filed at 07/12/2025 1200 Gross per 24 hour Intake 2746.62 ml Output 2725 ml Net 21.62 ml Physical Exam: Physical Exam Vitals reviewed. Constitutional: General: She is awake. Appearance: She is obese. Interventions: Nasal cannula in place. HENT: Head: Normocephalic and atraumatic. Eyes: General: Lids are normal. Vision grossly intact. Cardiovascular: Rate and Rhythm: Normal rate and regular rhythm. Pulmonary: Effort: Pulmonary effort is normal. No respiratory distress. Abdominal: Palpations: Abdomen is soft. Tenderness: There is no abdominal tenderness. Musculoskeletal: Cervical back: Neck supple. Skin: General: Skin is warm. Findings: Wound present. Comments: R proximal thigh. Covered by abd pads. Neurological: Mental Status: She is alert. Mental status is at baseline. Lines/Drains/Tubes: Patient Lines/Drains/Airways Status Active Airway None O2 Delivery Method: Nasal cannula UT SUP: 10 cm H20 Insp Time (sec): 1 sec FiO2 (%): 40 % S RR: 20 UT SUP: 10 cm H20 Output by Drain (mL) 07/10/25 07 - 07/10/25 18507/10/251899 - 07/11/25 0659 07/11/25 07 - 07/11/25 18507/11/25 190 - 07/12/25 0659 07/12/25 07 - 07/12/25 1403 Requested LDAs do not have output data documented. Labs in last 18 hours: CBC WBC 15.81 (H) Hb 9.3 (L) Plt 276 Hct 29.8 (L) ANC ?? INR ??, PTT ??, Anti-Xa ?? BMP Na 142 Cl 103 BUN 18 Glu 92 K 3.6 Co2 31 (H) Cr 0.84 Ca 8.8 (L) iCa ?? Mg 2.0, Phos 2.9 Lactate ?? LFT AST ?? AlkPhos ?? T Prot ?? ALK ?? Bili ?? Alb ?? D.Bili ?? Lab Trends: H/H Results from last 7 days Lab Units 07/12/25 0025 07/11/25 0009 07/10/25 0003 HEMOGLOBIN g/dL 9.3* 10.1* 10.6* HEMATOCRIT % 29.8* 32.1* 33.3* INR Results from last 7 days Lab Units 07/08/25 2353 07/08/25 1814 INR 1.2* 1.2* Cr Results from last 7 days Lab Units 07/12/25 0025 07/11/25 0009 07/10/25 0003 CREATININE mg/dL 0.84 0.99 1.25* Radiology: I have personally reviewed and interpreted the most recent CXR and my interpretation is that it shows multifocal airspace likely representing pulmonary edema. Medications reviewed. Vital signs reviewed. Labs reviewed. Radiography reviewed. Assessment and Plan: Medical Problems and Relevant Plans Hospital Problems POA * (Principal) Necrotizing fasciitis (CMS/HCC) Yes Overview Addendum 07/12/2025 1:54 PM by Gabriel Segovia - Presented to with right medial thigh NSTI. - Seen at OSH on 07/08 where she was hypotensive and tachycardic and they were concerned the wound was nec fas. Was given 3L of LR and continued to by hypotensive and was subsequently started on levophed. Initial I &D of right thigh, groin pubis and abdominal wall including skin, subcutaneous tissue and fascia. Transferred to for subsequent workup and management. - On arrival, patient hypotensive, requiring vasopressor support with leukocytosis, hyperglycemia and lactic acidosis. Required additional I&D - 07/10 pt had another I&D that showed viable tissue with no evidence of ongoing necrosis or purulence. - 07/11 wound washout in OR, wound vac was withheld due to erythema surrounding wound - Adjusting antibiotic treatment due to actinomyces cultures. - Dressing changes at bedside daily Acute respiratory failure Yes Overview Addendum 07/12/2025 1:55 PM by Gabriel Segovia - Patient presented to ED in septic shock due to RLE necrotizing fasciitis. - Was requiring ventalation support, was extubated postoperatively on 07/10 after I&D - Plan to continue to wean O2 as tolerated - CPAP at night for suspected sleep apnea - Lasix as needed for pulmonary edema to help with breathing - Improving, continue to monitor Septic shock (CMS/HCC) Yes Overview Addendum 07/12/2025 1:55 PM by Gabriel Segovia - Septic shock secondary to necrotizing fascitis. - Required Levophed and Vasopressin for circulatory support. - Currently off pressor support, continue to monitor pressures. Chronic obstructive pulmonary disease, unspecified (CMS/HCC) (Chronic) Yes Overview Addendum 07/11/2025 9:23 AM by Gabriel Segovia - Complicates care. - Continue Albuterol and DuoNebs. -Pulm toilet ordered on 07/11 - On high flow O2 70%, will plan to wean as tolerated - Monitor respiratory status clinically HTN (hypertension), benign (Chronic) Yes Overview Addendum 07/11/2025 9:29 AM by Gabriel Segovia -Pt still requiring pressure support on 07/11 -Resume home medications as appropriate. Depression (Chronic) Yes Overview Addendum 07/11/2025 9:31 AM by Gabriel Segovia - Resume home Duloxetine. Morbid (severe) obesity due to excess calories (CMS/HCC) (Chronic) Yes Overview Addendum 07/11/2025 9:31 AM by Gabriel Segovia - Complicates care. - Counseling when appropriate. Smoker (Chronic) Yes Overview Signed 07/09/2025 3:05 PM by Lidia Ellis MD - Patient smokes 0.5-1ppd. - Smoking cessation when appropriate. Urge incontinence (Chronic) Yes DM (diabetes mellitus) (CMS/HCC) (Chronic) Yes Overview Addendum 07/09/2025 4:11 PM by Lidia Ellis MD - Patient hyperglycemic, up to 300s. - Insulin drip per protocol. Hidradenitis (Chronic) Yes Absence seizure (CMS/HCC) (Chronic) Yes Overview Addendum 07/11/2025 9:20 AM by Gabriel Segovia -Lamictal 100 mg daily HLD (hyperlipidemia) (Chronic) Yes Overview Addendum 07/11/2025 8:53 AM by Gabriel Segovia - Continuing home Crestor JOSEP (obstructive sleep apnea) No Overview Signed 07/11/2025 9:28 AM by Gabriel Segovia -CPAP at night as needed Non-Hospital Problems Carpal tunnel syndrome Dehydration Hidradenitis suppurativa History of hysterectomy Marijuana smoker Pharyngitis Type 2 diabetes mellitus Overview Signed 08/31/2023 9:36 AM by Janell Bueno Last Assessment & Plan: Condition: stable Discussed glucose control targets. Educated on: Lifestyle changes Follow up in: three months with PCP Vitamin D deficiency Overview Signed 08/31/2023 9:36 AM by Janell Bueno Last Assessment & Plan: Condition: stable Follow up in: three months Wound dehiscence Stress incontinence Nocturia To Do: [ ] Bi-PAP/CPAP at night due to suspected JOSEP (ordered) [ ] switched to diabetic diet [ ] adding dilaudid bid prn for dressing changes [ ] adjusting abx for actinomyces [ ] PT/OT eval, goal OOB 2 chair [ ] Starting pcn for infetion; watch for rash [ ] CXR showing pulmonary edema, will give lasix [ ] D/c central line, switch to PIV On regular diet. CPAP at night for JOSEP. Edited by: Gabriel Segovia at 07/12/2025 1046 Gabriel Segovia Procedures Cosigned by Anne Franco MD at 07/17/2025 12:15 PM EDT Associated attestation - Anne Franco MD - 07/17/2025 12:15 PM EDT I saw and evaluated the patient with the medical/[employer]/PA student. I discussed the case with the medical/[employer]/PA student and agree with the findings and plan as documented. I personally performed the Examand Medical Decision Making. * Care Plan - Jf Cruz - 07/12/2025 3:41 AM EDT Problem: Adult Inpatient Plan of Care Goal: Plan of Care Review 07/12/2025339 by Jf Cruz Outcome: Ongoing, Progressing Flowsheets (Taken 07/12/2025339) Progress: improving Plan of Care Reviewed With: patient Problem: Adult Inpatient Plan of Care Goal: Patient-Specific Goal (Individualized) 07/12/2025339 by Jf Cruz Outcome: Ongoing, Progressing Problem: Adult Inpatient Plan of Care Goal: Absence of Hospital-Acquired Illness or Injury 07/12/2025339 by Jf Cruz Outcome: Ongoing, Progressing Problem: Adult Inpatient Plan of Care Goal: Optimal Comfort and Wellbeing 07/12/2025339 by Jf Cruz Outcome: Ongoing, Progressing Problem: Skin Injury Risk Increased Goal: Skin Health and Integrity 07/12/2025339 by Jf Cruz Outcome: Ongoing, Progressing Problem: Infection Goal: Absence of Infection Signs and Symptoms 07/12/2025339 by Jf Cruz Outcome: Ongoing, Progressing Problem: Fall Injury Risk Goal: Absence of Fall and Fall-Related Injury 07/12/2025339 by Jf Cruz Outcome: Ongoing, Progressing * Anesthesia PACU Signout - Miriam Hanna DO - 07/11/2025 4:39 PM EDT Patient: Cristina Brown Anesthesia Type: general Vitals Value Taken Time BP 122/55 07/11/25 15:55 Temp 36.6 ??C (97.8 ??F) 07/11/25 16:00 Pulse 94 07/11/25 15:59 Resp 22 07/11/25 15:59 SpO2 100 % 07/11/25 15:59 Vitals shown include unfiled device data. Anesthesia PACU Signout Patient location during evaluation: PACU Patient participation: complete - patient participated Level of consciousness: baseline and awake Pain management: adequate (pain score 0-3) Airway patency: natural airway Hydration status: acceptable PONV: none Cardiovascular status: acceptable and hemodynamically stable Respiratory status: acceptable, spontaneous ventilation, unassisted and nonlabored ventilation Discharge Disposition: admit to inpatient unit Cosigned by Jerome Foster MD at 07/11/2025 5:03 PM EDT Associated attestation - Jerome Foster MD - 07/11/2025 5:03 PM EDT Signature only. * Anesthesia PACU Signout - Luis Manuel Sharpe CRNA - 07/11/2025 4:37 PM EDT Patient: Cristina Brown Anesthesia Type: general Vitals Value Taken Time BP 122/55 07/11/25 15:55 Temp 36.6 ??C (97.8 ??F) 07/11/25 16:00 Pulse 94 07/11/25 15:59 Resp 22 07/11/25 15:59 SpO2 100 % 07/11/25 15:59 Vitals shown include unfiled device data. Anesthesia PACU Signout Patient location during evaluation: PACU Patient participation: complete - patient participated Level of consciousness: baseline and awake Pain management: adequate (pain score 0-3) Airway patency: natural airway Hydration status: acceptable PONV: none Cardiovascular status: acceptable and hemodynamically stable Respiratory status: acceptable, spontaneous ventilation, unassisted, nonlabored ventilation and face mask Discharge Disposition: admit to inpatient unit Comments: V/S stable on 15L Venti mask. Transfer back to ICU room. * Op Note - Dorcas Hennessy MD - 07/11/2025 2:46 PM EDT Operative Note Date: 07/11/25 Location: [facility] Name: Cristina Brown, : 1975, Diagnoses: Pre-op Diagnosis Necrotizing fasciitis (CMS/HCC) Post-op Diagnosis Necrotizing fasciitis (CMS/HCC) Procedure(s): Right groin/perineum/thigh/abdominal wound exploration and washout Attending Surgeon(s): * Dorcas Hennessy - Primary Magnetic Locater(s): * Janell Cross MD - Resident - Assisting * Shelby Whittington MD - Fellow Anesthesia: General ASA: III Blood Administration: Blood Product Administration History Product Date Volume Status Transfuse RBC RBC 07/08/2025 350 mL Completed 07/08/252341 Transfuse fresh frozen plasma Plasma 07/08/2025 300 mL Completed 07/08/252341 Transfuse RBC RBC 07/08/2025 350 mL Completed 07/08/252341 Transfuse fresh frozen plasma Plasma 07/08/2025 300 mL Completed 07/08/252341 Estimated Blood Loss: None Drains: Urethral Catheter Temperature probe 16 Fr. (Active) Site Assessment Clean;Skin intact 07/11/25 1400 CAUTI: Collection Container Standard drainage bag;System closed;Collection container below bladder and tubing free of kinks 07/11/251399 CAUTI: Securement Method Securing device (Describe) 07/11/251399 CAUTI: Specimen Collection Port Covered with Alcohol Cap Yes 07/11/251399 CAUTI: Urinary Catheter Indication Yes, meets indication reason 07/11/25 1400 CAUTI: Urinary Catheter Indication Reasons ICU patient requiring output monitoring q 1-2 hours withinterventions 07/11/25 1400 Output (mL) 190 mL 07/11/25 1400 Specimen: None Findings: Healthy subcutaneous fat and muscle. Inferior edge of skin on thigh with approximately 8cm of erythema but without purulence, fluctuance or necrosis. Erythematous edge marked. Wound was packed with 5 Kerlix gauzes tied together. Indications: Cristina Brown is an 50 y.o. female who is having surgery for Necrotizing fasciitis ([facility]). Patient had 2 prior debridements of her R thigh/groin/perineum/abdominal necrotizing fasciitis and she returns to the OR today for additional debridement and possible VAC placement. Informed consent was obtained. Narrative: The patient was brought to the operating room and placed supine on the operating table with arms abducted. Preoperative IV antibiotics and DVT prophylaxis were administered. General anesthesia was achieved without incident. A time out was performed confirming correct patient, site, and procedure ramu performed. The prior dressings were removed. The right groin, perineum, thigh, abdominal wall was prepped and draped in the usual sterile fashion. The subcutaneous tissues and muscles in the wound appeared healthy and without additional devitalization or necrosis. The medial skin edge on the thigh was slightly bruised but appeared viable. The right inguinal region under the patient's pannus appeared healthy. There was an approximately 8 cm edge of skin at the distal thigh skin edge that was erythematous, but no necrosis, dishwater fluid, purulence, or fluctuance was identified. No further tissue was excised. The wound measured approximately 65 x 20 x 7 cm. The wound was irrigated with generous volumesof sterile saline. The region of erythematous skin was marked with a marking pen. Because of the erythema at the inferior skin edge, we decided to forgo placing a wound VAC today. The wound was then packed with Dakin's-moistened Kerlix. A total of 5 Kerlix gauzes tied together were packed into the wound. The wound was covered with dry sterile dressings. All sponge, instrument, and sharps counts were correct at the end of the case. There were no specimens or drains. The patient was relieved of anesthesia without issues. The patient tolerated the procedure well and was transferred to the recovery area in good condition. Dr. Hennessy was present for the entire case. At the time of surgery, the following signs of infection were present: infection not otherwise specified. Complications: None; patient tolerated the procedure well. Submitted by: Dorcas Hennessy MD - 07/11/2025 * Consults - Mignon Rainey RD - 07/11/2025 8:55 AM EDT Adult Nutrition Evaluation Note Cristina Brown 50 y.o. female CSN: [id number] Room/Bed 133/133A Nutrition evaluation type: follow-up Reason for evaluation: Hospital course: 50 y o F transferred from OSH with concern for necrotizing fasciitis; OR 07/08 for excisional debridement of RLE, groin, pubis, and abdominal wall of skin, subcutaneous tissue, and muscle fascia, [id number]. Septic shock secondary to NSTI. Intubated & sedated. TF initiated 07/09. 07/11: Right groin wound exploration and washout on 07/10. Extubated 07/10. To OR for wound vac replacement 07/11 Past medical/ surgical history: Past Medical History[1], celiac disease Surgical History[2] Social history: Social History[3] Additional comments: 07/11: Extubated; OG removed. Pt is NPO Vitals and Basic Assessment: BP: 109/58 Temp: 37.2 ??C (98.9 ??F) Invasive Ventilator Initiated (ETT/Trach Only): Yes Oxygen Therapy: Supplemental oxygen O2 Delivery Method: High flow nasal cannula Dileep Coma Scale Score: 15 Satnam/Cubbin Pressure Risk Score: 26 Edema: Generalized Skin: necrotizing tissue right upper leg Allergies: Gluten meal Medications: Current Scheduled Medications[4] Current Continuous Medications[5]levophed .04 mcg/kg/min, Vasopressin .03 units/min Current PRN Medications[6] Labs: Labs in last 18 hours CBC WBC 13.23 (H) Hb 10.1 (L) Plt 270 Hct 32.1 (L) ANC ?? INR ??, PTT ??, Anti-Xa ?? BMP Na 141 Cl 104 BUN 20 Glu 163 (H) K 3.8 Co2 27 Cr 0.99 Ca 9.1 iCa 5.0 Mg 1.8 (L), Phos 3.7 Lactate 1.7 (H) LFT AST ?? AlkPhos ?? T Prot ?? ALK ?? Bili ?? Alb ?? D.Bili ?? Lab Results Component Value Date HGBA1C 7.5 (H) 07/09/2025 No results found for: CHOL No results found for: HDL No results found for: LDLCALC No results found for: TRIG Anthropometrics: Height: 177.8 cm Weight: 177 kg- 07/08/25 IBW: 68.2 kg %IBW: 260 Adjusted Body Weight: 95.4 kg BMI: 56.1 Wt evaluation: Extreme Obesity Weight History: Wt Readings from Last 30 Encounters: 07/08/25 177 kg (391 lb 1.5 oz) 02/29/24 148 kg (325 lb 6.4 oz) 08/31/23 155 kg (341 lb 7.9 oz) Estimated Needs: Kcal: 25-27 kcal/kg adj bw (2381-6462 kcal/d) Protein: 1.5-1.7 g/kg adj bw (143-162 g/d) Current Nutrition Intake: Diet: NPO Nutrition Support: Tube Feeding Route: Active Enteral Regimen: Provides: Avg enteral infusion: Tolerates: Diet Experience & Nutrition History: Diet Education: Will monitor Pertinent Home Medications: per med rec at this time, not taking listed meds - monitor for updates Nutrition Focused Physical Exam: Physical exam performed on (date): 07/09/25 (visual; may be skewed by obesity) Temples (muscles): None Clavicle (muscle): None Shoulder (muscle): None Orbital (fat): None Assessment of Malnutrition: Malnutrition Identified: No Nutrition Problem: Inadequate oral intake related to clinical condition as evidenced by NPO diet order Status of Nutrition Diagnosis: Ongoing Nutrition Interventions and Recommendations: -will monitor NPO duration -po per MD/ CARDIOLOGY TECH -when po diet appropriate, rec CC3, Gluten Free modification, and if still on Linezolid, add Low Tyramine modification -add Jose BID to provide 160 kcal, 14 gm L-Arginine, 14 gm L-Glutamine, 600 mg Vitamin C, 30 mg Vitamin E, 2.4 mcg Vitamin B-12, 3 g CaHMB, 19 mg Zn, 5 g Protein (hydrolyzed collagen) -document po intakes; if </= 50% most meals, add Boost Glucose Control BID to promote nutrient intakes Nutrition Monitoring and Goals: -po to begin (new) -Monitor tolerance and adequacy of po intake / enteral infusion, wt changes, bowel fxn, labs, skin integrity; and follow up per acuity (ongoing) Acuity Level: [address] [1] Past Medical History: Diagnosis Date Anxiety Asthma Carpal tunnel syndrome Depression Diabetes (CMS/HCC) H/O absence seizures Hidradenitis High cholesterol Hypertension Sleep apnea Smoker [2] Past Surgical History: Procedure Laterality Date CARPAL TUNNEL RELEASE 2 carpal tunnel surgeries - Aug CHOLECYSTECTOMY 1994 HAND SURGERY Left 2022 carpal tunnel HYSTERECTOMY 2005 TONSILECTOMY, ADENOIDECTOMY, BILATERAL MYRINGOTOMY AND TUBES 1991 [3] Social History Tobacco Use Smoking status: Every Day Current packs/day: 1.00 Types: Cigarettes Smokeless tobacco: Never Vaping Use Vaping status: Never Used Substance Use Topics Alcohol use: Not Currently Drug use: Yes Types: Marijuana [4] acetaminophen, 1,000 mg, Oral, q6h MARIBELL cefepime, 2 g, Intravenous, q8h [START ON 07/12/2025] DULoxetine, 60 mg, Oral, Daily enoxaparin, 40 mg, Subcutaneous, BID ipratropium-albuterol, 3 mL, Nebulization, q6h RT lactated Ringer's, 1,000 mL, Intravenous, Once lamoTRIgine, 100 mg, Oral, Nightly linezolid, 600 mg, Intravenous, q12h methocarbamol, 750 mg, Oral, TID metroNIDAZOLE, 500 mg, Intravenous, q8h mupirocin, 1 Application, Each Nostril, BID rosuvastatin, 20 mg, Oral, Nightly senna-docusate, 1 tablet, Oral, Nightly sodium chloride, 10 mL, Intravenous, q12h [5] insulin regular infusion - for hyperglycemia - standard protocol, 0.5-30 Units/hr, Last Rate: 1.15 Units/hr (07/11/25 08) norepinephrine, 0-0.4 mcg/kg/min, Last Rate: 0.04 mcg/kg/min (07/11/25 07) vasopressin, 0.03 Units/min, Last Rate: 0.03 Units/min (07/11/25699) [6] PRN medications: albuterol, glucose OR dextrose 10 % OR dextrose 10 % OR glucagon (human recombinant), insulin regular, ondansetron ODT OR ondansetron OR [DISCONTINUED] ondansetron, oxyCODONE OR oxyCODONE, sodium chloride, sodium chloride * Progress Notes - Dorcas Hennessy MD - 07/11/2025 8:41 AM EDTAssociated Order(s): Critical Care Post-Procedure Diagnose(s): Necrotizing fasciitis (CMS/HCC); Respiratory insufficiency; Septic shock (CMS/HCC); Morbid (severe) obesity due to excess calories (CMS/HCC); Type 2 diabetes mellitus withhyperglycemia, without long- term current use of insulin Surgical ICU Daily Progress Note 07/11/25 Cristina Brown HPI 50-year-old female with past medical history of absence seizure, hidradenitis suppurative, hypertension, type 2 diabetes, obesity, and tobacco use disorder, and newly dgx JOSEP who presented to the emergency department with leukocytosis and exam findings consistent with necrotizing fasciitis. - 07/09: debridement of necrotizing fasciitis in right lower extremity, groin, pubis, and abdominalwall of skin, subcutaneous tissue, and muscle fascia Overnight: Removed arterial line at 0500 due to kinking. Levo 0.05, Vaso 0.03. NPO. To OR note in. Interval: Did good w am bedside swallow. Switched pain meds to PO. Adjusted seizure meds w pharm. Edited by: Cheyanne Chakraborty MD at 07/11/2025 0846 Relevant review of systems was obtained as able and is negative unless stated above in HPI. Vital signs: Visit Vitals BP 137/73 Pulse 91 Temp 37.2 ??C (99 ??F) (Bladder) Resp 23 Ht 1.778 m (5' 10 ) Wt 177 kg (391 lb 1.5 oz) SpO2 95% BMI 56.12 kg/m?? Smoking Status Every Day BSA 2.96 m?? Intake/Output Summary (Last 24 hours) at 07/11/2025 0950 Last data filed at 07/11/2025 0800 Gross per 24 hour Intake 3331 ml Output 3045 ml Net 286 ml Physical Exam: Physical Exam Vitals reviewed. Constitutional: Appearance: She is obese. Interventions: Face mask in place. HENT: Head: Normocephalic and atraumatic. Eyes: General: Lids are normal. Vision grossly intact. Cardiovascular: Rate and Rhythm: Normal rate and regular rhythm. Pulmonary: Effort: Pulmonary effort is normal. Abdominal: General: There is no distension. Palpations: Abdomen is soft. Musculoskeletal: Cervical back: Neck supple. Skin: General: Skin is warm. Findings: Erythema and wound present. Comments: R proximal leg wound covered by dressing. Mild erythema and warmth around wound underneath tape. Tissue still appears viable. No evidence of necrosis. Neurological: Mental Status: She is alert and oriented to person, place, and time. Mental status is at baseline. Lines/Drains/Tubes: Patient Lines/Drains/Airways Status Active Airway None O2 Delivery Method: High flow nasal cannula Vent Mode: PS Invasive Vent Status (ETT, Trach Only): In use UT SUP: 5 cm H20 Insp Time (sec): 1.5 sec Vent Mode: PS FiO2 (%): 60 % S RR: 14 UT SUP: 5 cm H20 MAP (cm H2O): 9 Output by Drain (mL) 07/09/25 07 - 07/09/25 1859 07/09/25 190 - 07/10/25 0659 07/10/25 07 - 07/10/25 1859 07/10/25 1900 - 07/11/25 0659 07/11/25 07 - 07/11/25 0950 Requested LDAs do not have output data documented. Labs in last 18 hours: CBC WBC 13.23 (H) Hb 10.1 (L) Plt 270 Hct 32.1 (L) ANC ?? INR ??, PTT ??, Anti-Xa ?? BMP Na 141 Cl 104 BUN 20 Glu 163 (H) K 3.8 Co2 27 Cr 0.99 Ca 9.1 iCa 5.0 Mg 1.8 (L), Phos 3.7 Lactate 1.7 (H) LFT AST ?? AlkPhos ?? T Prot ?? ALK ?? Bili ?? Alb ?? D.Bili ?? Lab Trends: H/H Results from last 7 days Lab Units 07/11/25 0009 07/10/25 0003 07/09/25 0457 HEMOGLOBIN g/dL 10.1* 10.6* 11.0* HEMATOCRIT % 32.1* 33.3* 33.4* INR Results from last 7 days Lab Units 07/08/25 2353 07/08/25 1814 INR 1.2* 1.2* Cr Results from last 7 days Lab Units 07/11/25 0009 07/10/25 0003 07/09/25 1321 CREATININE mg/dL 0.99 1.25* 1.42* Radiology: I have personally reviewed and interpreted the most recent XCR 07/09 and my interpretation is that it shows the tip of the nasogastric tube is within the mid stomach mildly low lung volumes and hazy linear opacities within the lower lung. Medications reviewed. Vital signs reviewed. Labs reviewed. Radiography reviewed. Assessment and Plan: Medical Problems and Relevant Plans Hospital Problems POA * (Principal) Necrotizing fasciitis (CMS/HCC) Yes Overview Addendum 07/11/2025 9:16 AM by Gabriel Segovia - Presented to with right medial thigh NSTI. - Seen at OSH on 07/08 where she was hypotensive and tachycardic and they were concerned the wound was nec fas. Was given 3L of LR and continued to by hypotensive and was subsequently started on levophed. Initial I &D of right thigh, groin pubis and abdominal wall including skin, subcutaneous tissue and fascia. Transferred to for subsequent workup and management. - On arrival, patient hypotensive, requiring vasopressor support with leukocytosis, hyperglycemia and lactic acidosis. Required additional I&D - 07/10 pt had another I&D that showed viable tissue with no evidence of ongoing necrosis or purulence. - Pt to receive wound vac on 07/11 in OR - On cefepime, linezolid, and flagyl (07/08-TBD) Acute respiratory failure Yes Overview Addendum 07/11/2025 9:40 AM by Gabriel Segovia - Patient presented to ED in septic shock due to RLE necrotizing fasciitis. - Was requiring ventalation support, was extubated postoperatively on 07/10 after I&D - Still requiring high flow O2 70% on 07/11 - Plan to continue to wean O2 as tolerated - CPAP at night for suspected sleep apnea Septic shock ([facility]/HCC) Yes Overview Addendum 07/10/2025 4:53 PM by Lidia Ellis MD - Septic shock secondary to necrotizing fascitis. - Requiring Levophed and Vasopressin for circulatory support. Wean Levophed as tolerated. Chronic obstructive pulmonary disease, unspecified (CMS/HCC) (Chronic) Yes Overview Addendum 07/11/2025 9:23 AM by Gabriel Segovia - Complicates care. - Continue Albuterol and DuoNebs. -Pulm toilet ordered on 07/11 - On high flow O2 70%, will plan to wean as tolerated - Monitor respiratory status clinically HTN (hypertension), benign (Chronic) Yes Overview Addendum 07/11/2025 9:29 AM by Gabriel Segovia -Pt still requiring pressure support on 07/11 -Resume home medications as appropriate. Depression (Chronic) Yes Overview Addendum 07/11/2025 9:31 AM by Gabriel Segovia - Resume home Duloxetine. Morbid (severe) obesity due to excess calories (CMS/HCC) (Chronic) Yes Overview Addendum 07/11/2025 9:31 AM by Gabriel Segovia - Complicates care. - Counseling when appropriate. Smoker (Chronic) Yes Overview Signed 07/09/2025 3:05 PM by Lidia Ellis MD - Patient smokes 0.5-1ppd. - Smoking cessation when appropriate. Urge incontinence (Chronic) Yes DM (diabetes mellitus) (CMS/HCC) (Chronic) Yes Overview Addendum 07/09/2025 4:11 PM by Lidia Ellis MD - Patient hyperglycemic, up to 300s. - Insulin drip per protocol. Hidradenitis (Chronic) Yes Absence seizure (CMS/HCC) (Chronic) Yes Overview Addendum 07/11/2025 9:20 AM by Gabriel Segovia -Lamictal 100 mg daily HLD (hyperlipidemia) (Chronic) Yes Overview Addendum 07/11/2025 8:53 AM by Gabriel Segovia - Continuing home Crestor JOSEP (obstructive sleep apnea) Unknown Overview Signed 07/11/2025 9:28 AM by Gabriel Segovia -CPAP at night as needed Non-Hospital Problems Carpal tunnel syndrome Dehydration Hidradenitis suppurativa History of hysterectomy Marijuana smoker Pharyngitis Type 2 diabetes mellitus Overview Signed 08/31/2023 9:36 AM by Janell Bueno Last Assessment & Plan: Condition: stable Discussed glucose control targets. Educated on: Lifestyle changes Follow up in: three months with PCP Vitamin D deficiency Overview Signed 08/31/2023 9:36 AM by Janell Bueno Last Assessment & Plan: Condition: stable Follow up in: three months Wound dehiscence Stress incontinence Nocturia To Do: - Advance of diet after OR as tolerated - Adding pulm toliet and nebs - Get down on high flow before OR as tolerated - Working on weaning Vaso as tolerated after OR, MAP goals 65+ - Will consider new a-line after OR depending on pressures - Bi-PAP/CPAP at night due to suspected new dgx JOSEP - 1 L LR bolus at 715am 07/11 - Zofran added PRN for n/v - Consider CXR if pulm not improving - Consider d/c vaso as tolerated Edited by: Cheyanne Chakraborty MD at 07/11/2025 0839 Gabriel Seogvia Critical Care Performed by: Dorcas Hennessy MD Authorized by: Dorcas Hennessy MD Critical care provider statement: Critical care time (minutes): 45 Critical care time was exclusive of: Separately billable procedures and treating other patients andteaching time Critical care was time spent personally by me on the following activities: Development of treatmentplan with patient or surrogate, discussions with primary provider, evaluation of patient's responseto treatment, examination of patient, ordering and performing treatments and interventions, ordering and review of laboratory studies and ordering and review of radiographic studies I assumed subsequent critical care for this patient from a provider in my division, on the same day: no Comments: I saw and evaluated the patient. I discussed the case with the medical student and resident/fellow and agree with the findings and plan as documented. I personally participated in the management of the patient. I evaluated and treated the patient multiple times throughout the day, starting at 6:30 AM. The patient remains critically ill requiring ongoing life and organ- supporting interventions. Remains on low dose pressors. Will give volume and attempt to wean pressors. Remains on HFNC for respiratory insufficiency, will wean FiO2 as able. OR today for possible wound VAC. Dorcas Hennessy MD, PhD Acute Care Surgery, Trauma and Surgical Critical Care * Significant Event - Ruthy Craft MD - 07/11/2025 3:46 AM EDT Patient to the OR today 07/11/25 for Wound Vac Replacement. - Most recent progress note reviewed and no significant changes noted. - The risks, benefits, indications, contraindications, and surgical alternatives have been explained to the patient and her sister. They participated in the discussion and was given an opportunity toask questions. All questions answered. - Written informed consent signed and located in the patient's chart. - NPO since midnight. Ashley Craft, PGY1 Emergency General Surgery * Care Plan - Cheyanne Briceño RN - 07/11/2025 1:19 AM EDT Problem: Adult Inpatient Plan of Care Goal: Plan of Care Review Outcome: Ongoing, Progressing Flowsheets Taken 07/11/2025 0118 by Cheyanne Briceño, RN Progress: improving Taken 07/10/2025 1717 by Isha Cueto RN Plan of Care Reviewed With: patient Goal: Patient-Specific Goal (Individualized) Outcome: Ongoing, Progressing Flowsheets (Taken 07/11/2025116) Patient/Family-Specific Goals (Include Timeframe): PT pain score will be within targeted range during shift with PRN meds. Individualized Care Needs: pain control Anxieties, Fears or Concerns: pain Problem: Mechanical Ventilation Invasive Goal: Effective Communication Outcome: Ongoing, Progressing Intervention: Ensure Effective Communication Flowsheets Taken 07/11/2025117 by Cheyanne Briceño RN Diversional Activities: television Family/Support System Care: self-care encouraged involvement promoted support provided Communication Enhancement Strategies: call light answered in person device use encouraged family involved in communication plan family/caregiver assisted with communication Taken 07/09/20251446 by Jeana Bear Trust Relationship/Rapport: care explained choices provided emotional support provided empathic listening provided thoughts/feelings acknowledged reassurance provided questions encouraged questions answered Problem: Skin Injury Risk Increased Goal: Skin Health and Integrity Outcome: Ongoing, Progressing Intervention: Optimize Skin Protection Flowsheets Taken 07/11/2025 0030 by Cheyanne Briceño RN Skin Protection: incontinence pads utilized Taken 07/11/2025 0000 by Cheyanne Briceño RN Activity Management: activity adjusted per tolerance Head of Bed (HOB) Positioning: HOB at 30-45 degrees Taken 07/09/2025 2247 by Cheaynne Briceño RN Pressure Reduction Devices: alternating pressure pump (MARLA) positioning supports utilized foam padding utilized specialty bed utilized Taken 07/09/2025 1447 by Jeana Bear Pressure Reduction Techniques: heels elevated off bed weight shift assistance provided Problem: Restraint, Nonviolent Goal: Absence of Harm or Injury Outcome: Ongoing, Progressing Intervention: Protect Skin and Joint Integrity Flowsheets Taken 07/11/2025117 Body Position: turned Taken 07/11/202529 Skin Protection: incontinence pads utilized Taken 07/11/2025 0000 Range of Motion: ROM (range of motion) performed Problem: Infection Goal: Absence of Infection Signs and Symptoms Outcome: Ongoing, Progressing Intervention: Prevent or Manage Infection Flowsheets Taken 07/11/2025117 Infection Management: aseptic technique maintained Fever Reduction/Comfort Measures: lightweight clothing lightweight bedding Taken 07/11/2025 0000 Isolation Precautions: precautions maintained protective Problem: Fall Injury Risk Goal: Absence of Fall and Fall-Related Injury Outcome: Ongoing, Progressing Intervention: Promote Injury-Free Environment Flowsheets (Taken 07/11/2025 0118) Safety Promotion/Fall Prevention: activity supervised * Anesthesia PACU Signout - Christophe Hernandez DO - 07/10/2025 6:59 PM EDT Patient: Cristina Brown Anesthesia Type: general Vitals Value Taken Time BP 120/86 07/10/25 18:59 Temp 36.5 07/10/25 18:59 Pulse 91 07/10/25 18:02 Resp 18 07/10/25 18:02 SpO2 87 % 07/10/25 18:02 Vitals shown include unfiled device data. Anesthesia PACU Signout Patient location during evaluation: PACU Patient participation: complete - patient participated Level of consciousness: baseline and awake Pain management: adequate (pain score 0-3) Hydration status: acceptable PONV: none Cardiovascular status: acceptable and hemodynamically stable Respiratory status: acceptable, spontaneous ventilation, unassisted and nonlabored ventilation Discharge Disposition: admit to inpatient unit Cosigned by Ghanshyam Young DO at 07/12/2025 1:38 PM EDT Associated attestation - Ghanshyam Young DO - 07/12/2025 1:38 PM EDT I saw and evaluated the patient with the resident/fellow. I discussed the case with the resident/fellow and agree with the findings and plan as documented. * Anesthesia PACU Signout - Inocente Cotto MD - 07/10/2025 5:52 PM EDT Patient: Cristina Brown Anesthesia Type: general Vitals Value Taken Time BP See media 07/10/25 17:52 See media 07/10/25 17:52 Pulse 93 07/10/25 17:51 Resp 22 07/10/25 17:51 SpO2 88 % 07/10/25 17:51 Vitals shown include unfiled device data. Anesthesia PACU Signout Patient location during evaluation: PACU Patient participation: complete - patient participated Level of consciousness: baseline and awake Pain management: adequate (pain score 0-3) Airway patency: natural airway Hydration status: acceptable PONV: none Cardiovascular status: acceptable and hemodynamically stable Respiratory status: acceptable, spontaneous ventilation, unassisted and nonlabored ventilation * Query Clarification Note - Luanne Crawford MD - 07/10/2025 5:49 PM EDT Physician Clarification Please review the following and provide your response below. Abnormal lab values may not be coded without provider interpretation and documentation in the medical record. Please clarify which of the following accurately represents the patient's renal status: [x]ALL []Lab values with no clinical significance []Other, please specify Clinical Indicators: 07/08 ED Note: seen at OSH where she was hypotensive and tachycardic and they were concerned the wound was nec fas. given 3L of LR and continued to by hypotensive and was subsequently started on levophed 07/08 Trauma Op Note: Excisional debridement of right thigh, groin pubis and abdominal wall including skin, subcutaneous tissue and fascia measuring 65 x 20 x 2cm Estimated Blood Loss: 1000cc Labs: 07/08/25 18:14 07/09/25 04:57 07/09/25 13:21 07/10/25 00:03 Creatinine 1.99 (H) 1.58 (H) 1.42 (H) 1.25 (H) This documentation will become part of the patient's medical record. * Op Note - Dorcas Hennessy MD - 07/10/2025 4:20 PM EDT Operative Note Date: 07/10/25 Location: [facility] Name: Cristina Brown, : 1975, Diagnoses: Pre-op Diagnosis Necrotizing fasciitis (CMS/HCC) Post-op Diagnosis Necrotizing fasciitis (CMS/HCC) Procedure(s): Right groin/perineum/thigh/abdominal wound exploration, debridement, and washout Attending Surgeon(s): * Dorcas Hennessy - Primary Magnetic Locater(s): * Shelby Whittington MD - Resident - Assisting * Cheyanne Chakraborty MD - Resident - Assisting Anesthesia: General ASA: IV Blood Administration: Blood Product Administration History Product Date Volume Status Transfuse RBC RBC 07/08/2025 350 mL Completed 07/08/252341 Transfuse fresh frozen plasma Plasma 07/08/2025 300 mL Completed 07/08/252341 Transfuse RBC RBC 07/08/2025 350 mL Completed 07/08/252341 Transfuse fresh frozen plasma Plasma 07/08/2025 300 mL Completed 07/08/252341 Estimated Blood Loss: Minimal Drains: NG/OG [place] Sump 14 Fr Left nostril (Active) Placement Verification distal tube length;X-ray 07/10/251199 Tube Placement Length Marking (cm) 60 07/10/25 1200 Site Assessment Clean;Dry;Intact 07/10/251199 Surrounding Skin Dry;Intact 07/10/25 1200 Secured by Tape 07/10/25 1200 Secured Location Left Nostril 07/10/25 1200 NG/OG Status Clamped 07/10/25 1200 NG/OG Interventions Skin assessed;Air injected into blue air vent port;Clamped 07/10/25 1200 Tape Change/Repostion Date 07/10/25 07/10/25 1200 Tape Change/Repostion Time 1130 07/10/25 1200 Urethral Catheter Temperature probe 16 Fr. (Active) Site Assessment Clean;Skin intact 07/10/25 1200 CAUTI: Collection Container Standard drainage bag;System closed;Collection container below bladder and tubing free of kinks 07/10/25 1200 CAUTI: Securement Method Securing device (Describe) 07/10/25 1200 CAUTI: Specimen Collection Port Covered with Alcohol Cap Yes 07/10/25 08 CAUTI: Urinary Catheter Indication Yes, meets indication reason 07/10/25 08 CAUTI: Urinary Catheter Indication Reasons ICU patient requiring output monitoring q 1-2 hours withinterventions 07/10/25 0800 Output (mL) 330 mL 07/10/25 1400 Specimen: None Findings: All viable tissue. Wound measuring approximately [id number]. Packed with 5 kerlix tied together. Indications: Cristina Brown is an 50 y.o. female who is having surgery for Necrotizing fasciitis (CMS/HCC). Patient presented in septic shock secondary to NSTI for which she underwent excisional debridement of skin, subcutaneous tissue, and fascia on 07/08/25. She has since been resuscitated and requires a repeat wound exploration with possible debridement. The risks, benefits, and alternatives have been discussed at length with the patient's family. All questions answered, consent obtained, agreeable to proceed. Narrative: The patient was taken to the operating room and positioned in the lithotomy position on the operating table. General anesthesia was initiated. SCDs were properly placed and turned on. The patient wasprepped and draped in a sterile fashion. Time out was properly performed. Antibiotics were given pre -operatively. The right groin wound was evaluated. All tissue appeared viable with no evidence of ongoing necrosis or purulence. A small amount of fibrinous material in the subcutaneous fat layer was sharply excisionally debrided at the superior portion of the wound near her right inguinal ligament, without involving the ligament. Excisionally debrided area measured 10 cm x 5 cm. The wound was noted to track a few centimeters medially towards the mons pubis, with all tissue viable. The entire wound was non-excisionally gently debrided and copiously irrigated with multiple liters of sterile saline. Hemostasis was achieved with bovie electrocautery. The wound measured 65 x 20 x 7 cm. The wound was packed with x5 dakins soaked kerlix tied together, then covered with gauze and abd pads. After the procedure, the patient was awakened, extubated, and taken to the post operative care unitfor recovery. All lap, needle, and instrument counts were correct at the end of the case. Dr. Hennessy was present for all critical portions of this procedure. At the time of surgery, the following signs of infection were present: infection not otherwise specified. Complications: None; patient tolerated the procedure well. Submitted by: Shelby Whittington MD - 07/10/2025 * Progress Notes - Dorcas Hennessy MD - 07/10/2025 8:15 AM EDTAssociated Order(s): Critical Care Post-Procedure Diagnose(s): Necrotizing fasciitis (CMS/HCC); Acute respiratory failure with hypoxia; Septic shock (CMS/HCC); Morbid (severe) obesity due to excess calories (CMS/HCC) Surgical ICU Daily Progress Note 07/10/25 Cristina Brown HPI 50-year-old female with past medical history of absence seizure, hidradenitis suppurative, hypertension, type 2 diabetes, obesity, and tobacco use disorder who presented to the emergency department with leukocytosis and exam findings consistent with necrotizing fasciitis. - 07/09: debridement of necrotizing fasciitis in right lower extremity, groin, pubis, and abdominalwall of skin, subcutaneous tissue, and muscle fascia Overnight: NAEON. Levo 0.18, Propofol 20. NPO since midnight. To OR note in. Interval: Patient to go to OR today for irrigation and debridement. Currently holding tube feeds. Increasing requirements on Levofed, so added Vasopressin. Given 1L LR for hypotension. Switched from subQ heparin to pLOV given good renal function. Edited by: Lidia Ellis MD at 07/10/2025 2870 Relevant review of systems was obtained as able and is negative unless stated above in HPI. Vital signs: Visit Vitals BP 99/60 Pulse 90 Temp 36.9 ??C (98.5 ??F) (Oral) Resp 16 Ht 1.778 m (5' 10 ) Wt 177 kg (391 lb 1.5 oz) SpO2 94% BMI 56.12 kg/m?? Smoking Status Every Day BSA 2.96 m?? Intake/Output Summary (Last 24 hours) at 07/10/2025 1905 Last data filed at 07/10/2025 1717 Gross per 24 hour Intake 6761.8 ml Output 3765 ml Net 2996.8 ml Physical Exam: Physical Exam Vitals reviewed. Constitutional: Interventions: She is sedated and intubated. HENT: Head: Normocephalic and atraumatic. Eyes: General: Lids are normal. Cardiovascular: Rate and Rhythm: Normal rate and regular rhythm. Pulmonary: Effort: She is intubated. Abdominal: Palpations: Abdomen is soft. Musculoskeletal: Cervical back: Neck supple. Skin: Findings: Wound present. Comments: R proximal thigh, covered by wound dressing Lines/Drains/Tubes: Patient Lines/Drains/Airways Status Active Airway None O2 Delivery Method: Bubble High Flow Vent Mode: PS Invasive Vent Status (ETT, Trach Only): In use UT SUP: 5 cm H20 Insp Time (sec): 1.5 sec Vent Mode: PS FiO2 (%): 50 % S RR: 14 UT SUP: 5 cm H20 MAP (cm H2O): 9 Output by Drain (mL) 07/08/25 07 - 07/08/25 18507/08/25 190 - 07/09/25 0659 07/09/25 07 - 07/09/25 1859 07/09/25 190 - 07/10/25 0659 07/10/25 07 - 07/10/25 1859 07/10/25 190 - 07/10/25 1905 Requested LDAs do not have output data documented. Labs in last 18 hours: CBC WBC ?? Hb ?? Plt ?? Hct ?? ANC ?? INR ??, PTT ??, Anti-Xa ?? BMP Na ?? Cl ?? BUN ?? Glu ?? K ?? Co2 ?? Cr ?? Ca ?? iCa ?? Mg ??, Phos ?? Lactate ?? LFT AST ?? AlkPhos ?? T Prot ?? ALK ?? Bili ?? Alb ?? D.Bili ?? Lab Trends: H/H Results from last 7 days Lab Units 07/10/25 0003 07/09/25 0457 07/08/25 2352 HEMOGLOBIN g/dL 10.6* 11.0* 10.0* HEMATOCRIT % 33.3* 33.4* 30.8* INR Results from last 7 days Lab Units 07/08/25 2353 07/08/25 1814 INR 1.2* 1.2* Cr Results from last 7 days Lab Units 07/10/25 0003 07/09/25 1321 07/09/25 0457 CREATININE mg/dL 1.25* 1.42* 1.58* Medications reviewed. Vital signs reviewed. Labs reviewed. Radiography reviewed. Assessment and Plan: Medical Problems and Relevant Plans Hospital Problems POA * (Principal) Necrotizing fasciitis ([facility]/HCC) Yes Overview Addendum 07/10/2025 4:51 PM by Lidia Ellis MD - Presented to with right medial thigh NSTI. - S/p irrigation and debridement on 07/08. - On cefepime, linezolid, and flagyl (07/08-TBD) - Irrigation and debridement of RLE on 07/10. Chronic obstructive pulmonary disease, unspecified ([facility]/HCC) Yes Overview Addendum 07/09/2025 4:10 PM by Lidia Ellis MD - Complicates care. - Continue Albuterol and DuoNebs. - Wean ventilator as tolerated. - Monitor respiratory status clinically and with ABGs. HTN (hypertension), benign Yes Overview Signed 07/09/2025 4:06 PM by Lidia Ellis MD Resume home medications as appropriate. Depression Yes Overview Addendum 07/10/2025 4:54 PM by Lidia Ellis MD Resume home Duloxetine. Morbid (severe) obesity due to excess calories ([facility]) Yes Overview Addendum 07/09/2025 4:07 PM by Lidia Ellis MD Complicates care. Smoker Yes Overview Signed 07/09/2025 3:05 PM by Lidia Ellis MD - Patient smokes 0.5-1ppd. - Smoking cessation when appropriate. Urge incontinence Yes DM (diabetes mellitus) ([facility]/HCC) Yes Overview Addendum 07/09/2025 4:11 PM by Lidia Ellis MD - Patient hyperglycemic, up to 300s. - Insulin drip per protocol. Hidradenitis Yes Absence seizure ([facility]/HCC) (Chronic) Yes Overview Addendum 07/10/2025 4:52 PM by Lidia Ellis MD On Lamictal 50mg BID. Acute respiratory failure Yes Overview Signed 07/09/2025 3:57 PM by Lidia Ellis MD - Patient presenting in septic shock due to RLE necrotizing fasciitis. - Requiring ventilator for respiratory support. Wean as tolerated. Septic shock (CMS/HCC) Yes Overview Addendum 07/10/2025 4:53 PM by Lidia Ellis MD - Septic shock secondary to necrotizing fascitis. - Requiring Levophed and Vasopressin for circulatory support. Wean Levophed as tolerated. HLD (hyperlipidemia) (Chronic) Yes Overview Signed 07/10/2025 4:55 PM by Lidia Ellis MD Resume home Crestor Non-Hospital Problems Carpal tunnel syndrome Dehydration Hidradenitis suppurativa History of hysterectomy Marijuana smoker Pharyngitis Type 2 diabetes mellitus Vitamin D deficiency Wound dehiscence Stress incontinence Nocturia To Do: Vital signs order for outside parameter Switch to plov from sqh Started Vaso and gave 1L this AM during rounds Drop FiO2 to 40% Restart home Duloxetine and Crestor Consider extubation and advance of diet after OR depending on surgical findings Started Vaso and gave 1L this AM during rounds Edited by: Gabriel Segovia at 07/10/2025 1820 Gabriel Segovia Critical Care Performed by: Dorcas Hennessy MD Authorized by: Dorcas Hennessy MD Critical care provider statement: Critical care time (minutes): 45 Critical care time was exclusive of: Separately billable procedures and treating other patients andteaching time Critical care was time spent personally by me on the following activities: Development of treatmentplan with patient or surrogate, discussions with primary provider, evaluation of patient's responseto treatment, examination of patient, ordering and performing treatments and interventions, ordering and review of laboratory studies, ordering and review of radiographic studies and ventilator management I assumed subsequent critical care for this patient from a provider in my division, on the same day: no Comments: I saw and evaluated the patient. I discussed the case with the medical student and resident/fellow and agree with the findings and plan as documented. I personally participated in the management of the patient. I evaluated and treated the patient multiple times throughout the day, starting at 6:30 AM. The patient remains critically ill requiring ongoing life and organ- supporting interventions. Remains intubated and on pressors. Will wean pressors as able. OR today for wound exploration. Willattempt to extubate post-op if appropriate. Dorcas Hennessy MD, PhD Acute Care Surgery, Trauma and Surgical Critical Care * Significant Event - Ruthy Craft MD - 07/10/2025 12:18 AM EDT Patient to the OR today 07/10/25 for Irrigation and Debridement of RLE. - Most recent progress note reviewed and no significant changes noted. - The risks, benefits, indications, contraindications, and surgical alternatives have been explained to the patient's sister. She participated in the discussion and was given an opportunity to ask questions. All questions answered. - Written informed consent signed and located in the patient's chart. - NPO since midnight. Ashley Craft, PGY1 Emergency General Surgery * Teleconsult - Brian Melchor MD - 07/09/2025 11:50 PM EDT 07/09/25 Cristina Brown Asked by RN to review and reorder restraints. Chart reviewed and patient visualized. Patient has continued need for restraints. Order renewed. Brian Melchor MD * Care Plan - Cheyanne Briceño RN - 07/09/2025 10:49 PM EDT Problem: Adult Inpatient Plan of Care Goal: Plan of Care Review Outcome: Ongoing, Progressing Flowsheets (Taken 07/09/20252246) Progress: no change Plan of Care Reviewed With: significant other Goal: Patient-Specific Goal (Individualized) Outcome: Ongoing, Progressing Flowsheets (Taken 07/09/20252244) Patient/Family-Specific Goals (Include Timeframe): PT will remain hemodynamically stable throughoutshift. Individualized Care Needs: pain control Anxieties, Fears or Concerns: PANCHO Problem: Mechanical Ventilation Invasive Goal: Absence of Device-Related Skin and Tissue Injury Outcome: Ongoing, Progressing Intervention: Maintain Skin and Tissue Health Flowsheets (Taken 07/09/20252246) Device Skin Pressure Protection: absorbent pad utilized/changed positioning supports utilized [id number] areas padded [id number] areas padded Problem: Skin Injury Risk Increased Goal: Skin Health and Integrity Outcome: Ongoing, Progressing Intervention: Optimize Skin Protection Flowsheets Taken 07/09/20252246 by Cheyanne Briceño, RN Pressure Reduction Devices: alternating pressure pump (MARLA) positioning supports utilized foam padding utilized specialty bed utilized Skin Protection: pulse oximeter probe site changed incontinence pads utilized Taken 07/09/20252199 by Cheyanne Briceño, RN Activity Management: activity adjusted per tolerance Head of Bed (HOB) Positioning: HOB at 30-45 degrees Taken 07/09/20251446 by Jeana Bear Pressure Reduction Techniques: heels elevated off bed weight shift assistance provided Problem: Restraint, Nonviolent Goal: Absence of Harm or Injury Outcome: Ongoing, Progressing Intervention: Protect Skin and Joint Integrity Flowsheets Taken 07/09/20252246 Body Position: turned Skin Protection: pulse oximeter probe site changed incontinence pads utilized Taken 07/09/20252199 Range of Motion: active ROM (range of motion) encouraged * Care Plan - Jeana Bear - 07/09/2025 2:49 PM EDT Problem: Adult Inpatient Plan of Care Goal: Optimal Comfort and Wellbeing Outcome: Ongoing, Progressing Intervention: Provide Person-Centered Care Flowsheets (Taken 07/09/20251446) Trust Relationship/Rapport: care explained choices provided emotional support provided empathic listening provided thoughts/feelings acknowledged reassurance provided questions encouraged questions answered Problem: Mechanical Ventilation Invasive Goal: Optimal Nutrition Delivery Outcome: Ongoing, Progressing Intervention: Optimize Nutrition Delivery Flowsheets (Taken 07/09/20251446) Nutrition Support Management: tube feeding initiated Problem: Skin Injury Risk Increased Goal: Skin Health and Integrity Outcome: Ongoing, Progressing Intervention: Optimize Skin Protection Flowsheets Taken 07/09/2025 1447 Pressure Reduction Techniques: heels elevated off bed weight shift assistance provided Head of Bed (HOB) Positioning: HOB at 30 degrees Taken 07/09/2025 1300 Activity Management: activity adjusted per tolerance Problem: Restraint, Nonviolent Goal: Absence of Harm or Injury Outcome: Ongoing, Progressing Intervention: Protect Dignity, Rights and Personal Wellbeing Flowsheets (Taken 07/09/2025 1447) Trust Relationship/Rapport: care explained choices provided emotional support provided empathic listening provided thoughts/feelings acknowledged reassurance provided questions encouraged questions answered Intervention: Protect Skin and Joint Integrity Flowsheets (Taken 07/09/2025 1447) Range of Motion: ROM (range of motion) performed Body Position: heels elevated upper extremity elevated * Care Plan - Roslyn Sumner - 07/09/2025 10:23 AM EDT Problem: Mechanical Ventilation Invasive Goal: Mechanical Ventilation Liberation Outcome: Ongoing, Progressing * Progress Notes - Annie Littlejohn - 07/09/2025 9:56 AM EDT SW attempted to complete the initial assmt and the pt is on a vent and sedated. Pt family at bedside was resting so SW didn't wake them. Will attempt again at a later time. * Consults - Mera Knowles RD - 07/09/2025 9:20 AM EDTAssociated Order(s): IP CONSULT TO NUTRITION SERVICES Adult Nutrition Evaluation Note Cristina Brown 50 y.o. female CSN: [id number] Room/Bed 133/133A Nutrition evaluation type: assessment Reason for evaluation: provider consult Hospital course: 50 y o F transferred from OSH with concern for necrotizing fasciitis; OR 9/1 for excisional debridement of RLE, groin, pubis, and abdominal wall of skin, subcutaneous tissue, and muscle fascia, [id number]. Septic shock secondary to NSTI. Intubated & sedated. TF initiated 07/09. Past medical/ surgical history: Past Medical History[1], celiac disease Surgical History[2] Social history: Social History[3] Additional comments: 07/09: Pt intubated and sedated. Visitor sleeping. Vitals and Basic Assessment: BP: 89/50 Temp: 36.3 ??C (97.3 ??F) Invasive Ventilator Initiated (ETT/Trach Only): Yes Oxygen Therapy: Supplemental oxygen O2 Delivery Method: Endotracheal tube, Mechanical ventilator Novinger Coma Scale Score: 10 Satnam/Cubbin Pressure Risk Score: 23 Edema: Generalized Skin: NSTI RUE Allergies: Gluten meal (verify celiac disease dx with pt when able to interview) Medications: Current Scheduled Medications[4] Current Continuous Medications[5] NorEpi 0.1 mcg/kg/min; Propofol: 528 kcal/d Current PRN Medications[6] Labs: Results from last 7 days Lab Units 07/09/2545607/08/25235107/08/25 1814 WBC 10*3/uL 32.25* 22.50* 26.15* HEMOGLOBIN g/dL 11.0* 10.0* 10.9* HEMATOCRIT % 33.4* 30.8* 33.6* PLATELETS 10*3/uL 358 273 329 Results from last 7 days Lab Units 07/09/2545607/08/25235107/08/25 1814 SODIUM mmol/L 136 136 131* POTASSIUM mmol/L 3.5* 3.6 4.0 CHLORIDE mmol/L 101 100 93* CO2 mmol/L 23 23 22 BUN mg/dL 30* 32* 33* CREATININE mg/dL 1.58* 1.80* 1.99* EGFR mL/min/1.73m*2 40.0 34.2 30.3 GLUCOSE mg/dL 235* 314* 411* CALCIUM mg/dL 9.2 8.9 9.3 PHOSPHORUS mg/dL 4.1 3.6 -- -BUN & BG elevated - monitor trends Magnesium, Plasma Date Value Ref Range Status 07/09/2025 2.2 1.9 - 2.4 mg/dL Final Lab Results Component Value Date ALT 15 07/08/2025 AST 16 07/08/2025 ALKPHOS 165 (H) 07/08/2025 BILITOT 0.4 07/08/2025 Lab Results Component Value Date ALBUMIN 2.6 (L) 07/08/2025 -Albumin is a negative acute phase protein, and therefore not a reliable indicator of malnutrition (CRP elevated). No results found for: PREALBUMIN Lab Results Component Value Date CRP 462.2 (H) 07/08/2025 Lactate 1.4 No results found for: HGBA1C No results found for: CHOL No results found for: HDL No results found for: LDLCALC No results found for: TRIG Anthropometrics: Height: 177.8 cm Weight: 177 kg IBW: 68.2 kg %IBW: 260 Adjusted Body Weight: 95.4 kg BMI: 56.1 Wt evaluation: Extreme Obesity Weight History: Wt Readings from Last 30 Encounters: 07/08/25 177 kg (391 lb 1.5 oz) 02/29/24 148 kg (325 lb 6.4 oz) 08/31/23 155 kg (341 lb 7.9 oz) Estimated Needs: Kcal: 22-25 kcal/kg IBW (6944-3882 kcal/d) Protein: 2-2.5 g/kg IBW (136-171 g/d) Current Nutrition Intake: Diet: NPO Nutrition Support: Tube Feeding Route: NGT Active Enteral Regimen: Isosource 1.5 @ goal rate 50 ml/hr (1100 ml/day) Provides: 1650 kcal, 75g protein, 194g CHO, 17g fiber, 65g fat, 840 ml water and 110% RDIs vit/min Avg enteral infusion: establishing Tolerates: establishing Diet Experience & Nutrition History: Diet Education: Will monitor Pertinent Home Medications: per med rec at this time, not taking listed meds - monitor for updates Nutrition Focused Physical Exam: Physical exam performed on (date): 07/09/25 (visual; may be skewed by obesity) Temples (muscles): None Clavicle (muscle): None Shoulder (muscle): None Orbital (fat): None Assessment of Malnutrition: Malnutrition Identified: No Nutrition Problem: Inadequate oral intake related to mechanical ventilation as evidenced by requiring TF to provide nutrition. Status of Nutrition Diagnosis: New Nutrition Interventions and Recommendations: -NPO -TF: Changing regimen to Peptamen Intense VHP with goal rate of 60 ml/hr (1320 ml/day) -Provides: 1320kcal, 121g protein, 100g CHO, 5g fiber, 50g fat, and 1109ml water and 88% RDIs vit/min -Monitor Propofol infusion and adjust goal rate accordingly -Add liquid protein packet daily when off Linezolid -FW management per team -Weight monitoring -When po diet appropriate, add Gluten Free modification, and if still on Linezolid, add Low Tyramine modification Nutrition Monitoring and Goals: -Monitor tolerance and adequacy of po intake / enteral infusion, wt changes, bowel fxn, labs, skin integrity; and follow up per acuity -Avg >80% goal enteral volume daily Acuity Level: 5 Mera Knowles, RD, LD [1] Past Medical History: Diagnosis Date Anxiety Asthma Carpal tunnel syndrome Depression Diabetes (CMS/HCC) H/O absence seizures Hidradenitis High cholesterol Hypertension Sleep apnea Smoker [2] Past Surgical History: Procedure Laterality Date CARPAL TUNNEL RELEASE 2 carpal tunnel surgeries - Aug CHOLECYSTECTOMY 1994 HAND SURGERY Left 2022 carpal tunnel HYSTERECTOMY 2005 TONSILECTOMY, ADENOIDECTOMY, BILATERAL MYRINGOTOMY AND TUBES 1991 [3] Social History Tobacco Use Smoking status: Every Day Current packs/day: 1.00 Types: Cigarettes Smokeless tobacco: Never Vaping Use Vaping status: Never Used Substance Use Topics Alcohol use: Not Currently Drug use: Yes Types: Marijuana [4] acetaminophen, 1,000 mg, Nasogastric, q6h MARIBELL cefepime, 2 g, Intravenous, q8h famotidine, 20 mg, Intravenous, q12h heparin (porcine), 7,500 Units, Subcutaneous, q8h ipratropium-albuterol, 3 mL, Nebulization, q6h RT lamoTRIgine, 50 mg, Nasogastric, BID linezolid, 600 mg, Intravenous, q12h methocarbamol, 750 mg, Nasogastric, q6h MARIBELL metoprolol tartrate, 12.5 mg, Nasogastric, BID metroNIDAZOLE, 500 mg, Nasogastric, q8h mupirocin, 1 Application, Each Nostril, BID sodium chloride, 10 mL, Intravenous, q12h [5] HYDROmorphone, 0.25-2 mg/hr, Last Rate: 0.25 mg/hr (07/09/25 0700) insulin regular infusion - for hyperglycemia - standard protocol, 0.5-30 Units/hr, Last Rate: 9.75 Units/hr (07/09/25 1006) norepinephrine, 0.02-0.4 mcg/kg/min, Last Rate: 0.1 mcg/kg/min (07/09/25 1037) propofol, 10-50 mcg/kg/min, Last Rate: 20 mcg/kg/min (07/09/25 0800) [6] PRN medications: albuterol, glucose OR dextrose 10 % OR dextrose 10 % OR glucagon (human recombinant), HYDROmorphone OR HYDROmorphone, insulin regular, oxyCODONE OR oxyCODONE,sodium chloride, sodium chloride * Progress Notes - Dorcas Hennessy MD - 07/09/2025 7:15 AM EDTAssociated Order(s): Critical Care Post-Procedure Diagnose(s): Necrotizing fasciitis (CMS/HCC); Acute respiratory failure with hypoxia; Septic shock (CMS/HCC); Morbid (severe) obesity due to excess calories (CMS/HCC) Surgical ICU Daily Progress Note 07/09/25 Cristina Brown HPI 50-year-old female with past medical history of absence seizure, hidradenitis suppurative, hypertension, type 2 diabetes, obesity, and tobacco use disorder who presented to the emergency department with leukocytosis and exam findings consistent with necrotizing fasciitis. - 07/09: debridement of necrotizing fasciitis in right lower extremity, groin, pubis, and abdominalwall of skin, subcutaneous tissue, and muscle fascia Overnight: Excisional debridement of right lower extremity. On Levo at 0.14, Propofol at 20. Scheduled IV tylenol 1000 mg q6. Ibuprofen held due to increased creatinine. Currently on pressure support, PEEP of 10. Interval: Started on home Lamotrigine. Started on lower dose home Metoprolol (12.5mg BID). Levopheddown to 0.04. Vent settings altered with appropriate response via ABG. Tube feeds started with NPO at 0000 for OR tomorrow. SubQ Heparin initiated. Consent for OR tomorrow obtained by patient's sister. Edited by: Lidia Ellis MD at 07/09/2025 1441 Relevant review of systems was obtained as able and is negative unless stated above in HPI. Vital signs: Visit Vitals BP (!) 73/39 Pulse 68 Temp 36.9 ??C (98.4 ??F) (Bladder) Resp 16 Ht 1.778 m (5' 10 ) Wt 177 kg (391 lb 1.5 oz) SpO2 100% BMI 56.12 kg/m?? Smoking Status Every Day BSA 2.96 m?? Intake/Output Summary (Last 24 hours) at 07/09/2025 1611 Last data filed at 07/09/2025 1600 Gross per 24 hour Intake 9163.32 ml Output 4950 ml Net 4213.32 ml Physical Exam: Physical Exam Vitals and nursing note reviewed. Constitutional: Appearance: She is obese. Interventions: She is sedated and intubated. Cardiovascular: Rate and Rhythm: Normal rate and regular rhythm. Pulmonary: Effort: She is intubated. Breath sounds: Normal breath sounds. Abdominal: General: Bowel sounds are decreased. Palpations: Abdomen is soft. Skin: Comments: [id number] open wound with no extension of cellulitis. Wound packed with Kerlix and covered with abd pad. Lines/Drains/Tubes: Patient Lines/Drains/Airways Status Active Airway Name Placement date Placement time Site Days ETT ETT - single 7.5 mm 07/08/252027 Oral less than 1 Invasive Ventilator Initiated (ETT/Trach Only): Yes O2 Delivery Method: Endotracheal tube;Mechanical ventilator Vent Mode: PS Invasive Vent Status (ETT, Trach Only): In use Pressure Control Above PEEP (cmH2O): 18 S VT: 450 mL UT SUP: 10 cm H20 Insp Time (sec): 0.8 sec Vent Mode: PS FiO2 (%): 50 % S RR: 22 S VT: 450 mL UT SUP: 10 cm H20 MAP (cm H2O): 10 Output by Drain (mL) 07/07/25 0700 - 07/07/25 1859 07/07/25 1900 - 07/08/25 0659 07/08/25 0700 - 07/08/25 1859 07/08/25 1900 - 07/09/25 0659 07/09/25 0700 - 07/09/25 1611 Requested LDAs do not have output data documented. Labs in last 18 hours: CBC WBC 32.25 (H) Hb 11.0 (L) Plt 358 Hct 33.4 (L) ANC ?? INR 1.2 (H), PTT 25, Anti-Xa ?? BMP Na 140 Cl 104 BUN 26 (H) Glu 100 (H) K 3.7 Co2 24 Cr 1.42 (H) Ca 9.1 iCa 4.9 Mg 2.3, Phos 4.2 Lactate 0.9 LFT AST ?? AlkPhos ?? T Prot ?? ALK ?? Bili ?? Alb ?? D.Bili ?? Lab Trends: H/H Results from last 7 days Lab Units 07/09/25 0457 07/08/25 2352 07/08/25 1814 HEMOGLOBIN g/dL 11.0* 10.0* 10.9* HEMATOCRIT % 33.4* 30.8* 33.6* INR Results from last 7 days Lab Units 07/08/25 2353 07/08/25 1814 INR 1.2* 1.2* Cr Results from last 7 days Lab Units 07/09/25 1321 07/09/25 0457 07/08/25 2352 CREATININE mg/dL 1.42* 1.58* 1.80* Radiology: I have personally reviewed and interpreted the most recent CXR and my interpretation is that it shows bilateral atelectasis without pleural effusion or pneumothorax. Medications reviewed. Vital signs reviewed. Labs reviewed. Radiography reviewed. Assessment and Plan: Medical Problems and Relevant Plans Hospital Problems POA * (Principal) Necrotizing fasciitis (CMS/HCC) Yes Overview Addendum 07/09/2025 4:04 PM by Lidia Ellis MD - Presented to with right medial thigh NSTI. - S/p irrigation and debridement on 07/08. - On cefepime, linezolid, and flagyl (07/08-TBD) - Marked and consented for irrigation and debridement of RLE 07/10. Acute respiratory failure Yes Overview Signed 07/09/2025 3:57 PM by Lidia Ellis MD - Patient presenting in septic shock due to RLE necrotizing fasciitis. - Requiring ventilator for respiratory support. Wean as tolerated. Septic shock ([facility]) Yes Overview Signed 07/09/2025 3:58 PM by Lidia Ellis MD - Septic shock secondary to necrotizing fascitis. - Requiring Levophed for circulatory support. Wean as tolerated. Chronic obstructive pulmonary disease, unspecified ([facility]) Yes Overview Addendum 07/09/2025 4:10 PM by Lidia Ellis MD - Complicates care. - Continue Albuterol and DuoNebs. - Wean ventilator as tolerated. - Monitor respiratory status clinically and with ABGs. HTN (hypertension), benign Yes Overview Signed 07/09/2025 4:06 PM by Lidia Ellis MD Resume home medications as appropriate. Depression Yes Overview Signed 07/09/2025 4:07 PM by Lidia Ellis MD Resume home medications as appropriate. Morbid (severe) obesity due to excess calories ([facility]) Yes Overview Addendum 07/09/2025 4:07 PM by Lidia Ellis MD Complicates care. Smoker Yes Overview Signed 07/09/2025 3:05 PM by Lidia Ellis MD - Patient smokes 0.5-1ppd. - Smoking cessation when appropriate. Urge incontinence Yes DM (diabetes mellitus) ([facility]) Yes Overview Addendum 07/09/2025 4:11 PM by Lidia Ellis MD - Patient hyperglycemic, up to 300s. - Insulin drip per protocol. Hidradenitis Yes Absence seizure ([facility]) (Chronic) Yes Overview Addendum 07/09/2025 4:08 PM by Lidia Ellis MD On Lamictal 50mg BID at home. Restarted 07/09. To Do: [ ] 1L LR [ ] Start Robaxin and PRN Oxycodone [ ] Resume home nebulizers, Lamictal 50mg BID [ ] Restart home Metoprolol at a reduced dose -> 12.5mg BID [ ] Follow-up A1c [ ] Start tube feeds with NPO at MN [ ] Start subcutaneous heparin for PPX [ ] Decrease FiO2 to 50% and PEEP to 8 [ ] Follow-up ABGs at 1500 [ ] SBT Lidia Ellis MD Critical Care Performed by: Dorcas Hennessy MD Authorized by: Dorcas Hennessy MD Critical care provider statement: Critical care time (minutes): 45 Critical care time was exclusive of: Separately billable procedures and treating other patients andteaching time Critical care was time spent personally by me on the following activities: Development of treatmentplan with patient or surrogate, discussions with primary provider, evaluation of patient's responseto treatment, examination of patient, ordering and performing treatments and interventions, ordering and review of laboratory studies, ordering and review of radiographic studies and ventilator management I assumed subsequent critical care for this patient from a provider in my division, on the same day: no Critical care statement: I saw and evaluated the patient with the resident/ fellow. I discussed thecase with the resident/ fellow and agree with the findings and plan as documented. I evaluated and treated the patient multiple times throughout the day, starting at 6:30 AM. The patient remains critically ill requiring ongoing life and organ- supporting interventions. Remains intubated, on PRVC - will switch to PS if patient tolerates. Wean FiO2. If levophed requirement increases, will add vaso; low threshold to return to the operating room today if pressors rise and there is concern for unaddressed infection. Continue IVF resuscitation. Home meds. Plan for OR tomorrow for wound exploration and debridement. Dorcas Hennessy MD, PhD Acute Care Surgery, Trauma and Surgical Critical Care * Progress Notes - Erik Diez MD - 07/09/2025 12:34 AM EDT Bed side RN has requested need for restraints. Camera evaluation done for a new soft Bilateral wrist restraints to prevent self injury and harm while critically ill with agitation/altered mental status, inability to follow commands. On vent. * Care Plan - Lexx Emmanuel - 07/08/2025 11:50 PM EDT Problem: Mechanical Ventilation Invasive Goal: Optimal Device Function Outcome: Ongoing, Progressing Goal: Absence of Device-Related Skin and Tissue Injury Outcome: Ongoing, Progressing * Perioperative Nursing Note - Ema Antoine RN - 07/08/2025 9:01 PM EDT Wound size 65-20cm Tissue weight 2764g or 6lbs * Op Note - Kristy Fields MD - 07/08/2025 9:01 PM EDT Operative Note Date: 07/08/25 Location: [facility] Name: Cristina Brown, : 1975, Diagnoses: Pre-op Diagnosis Necrotizing fasciitis (CMS/HCC) Post-op Diagnosis Necrotizing fasciitis (CMS/HCC) Procedure(s): Excisional debridement of right thigh, groin pubis and abdominal wall including skin, subcutaneous tissue and fascia measuring 65 x 20 x 2cm Attending Surgeon(s): * Luanne Crawford - Primary Magnetic Locater(s): * Kristy Fields MD - Resident - Assisting Anesthesia: General ASA: IV Blood Administration: Blood Product Administration History Product Date Volume Status Transfuse RBC RBC 07/08/2025 350 mL Completed 07/08/252341 Transfuse fresh frozen plasma Plasma 07/08/2025 300 mL Completed 07/08/252341 Transfuse RBC RBC 07/08/2025 350 mL Completed 07/08/252341 Transfuse fresh frozen plasma Plasma 07/08/2025 300 mL Completed 07/08/252341 Estimated Blood Loss: 1000cc Drains: Urethral Catheter Temperature probe 16 Fr. (Active) Specimen: right thigh skin and subcutaneous tissue Findings: necrotizing fasciitis involving right leg, groin, abdominal wall Indications: Cristina Brown is an 50 y.o. female who is having surgery for Necrotizing fasciitis (CMS/HCC). Patient presented as transfer from OSH with right inner thigh wound which has been present for 4-5 days. On arrival, patient hypotensive, requiring vasopressor support with leukocytosis, hyperglycemia and lactic acidosis. This was clearly a necrotizing soft tissue infection on exam, requiring emergent debridement in the operating room. The risks, benefits and alternatives were discussedand patient elected to proceed with excisional debridement. Narrative: After obtaining informed consent, the patient was taken to the operating room and positioned in thesupine position on the operating table. Antibiotics were given preoperatively. SCDs were placed properly on the patient and turned on. General anesthesia was initiated. Time out was properly performed. The patient was positioned in lithotomy and prepped and draped in the usual sterile fashion. An ellipse of skin and subcutaneous tissue including the two necrotic areas was excised, revealing extensive necrotic tissue and dishwater drainage underneath. The wound was noted to track medially and posteriorly as well as superiorly along the inguinal ligament and anterior thigh. A significant amount of skin, subcutaneous tissue and fascia was excised sharply down to relatively healthy, bleeding tissue. Medially, the great saphenous vein was encountered and noted to traverse through the wound with a significant amount of the vein exposed. We elected to ligate and excise this portion of theGSV. The vein was suture ligated fairly proximally, however the saphenofemoral junction was not visualized, and remained covered by a healthy layer of tissue. Medially and anteriorly, muscle fascia was debrided, with relatively healthy appearing muscle underneath. Superiorly the right pubic ramus was easily palpated with a thin later of tissue overlying. Laterally, the anterior superior iliac spine was also palpated and noted to have a thin later of tissue overlying. The inguinal ligament was vi sualized and excisional debridement was carried up to the ligament, but the ligament was not violated, and did not appear to have tracking infection or necrosis along the abdominal wall. This will need to be closely monitored. After successful debridement of necrotic and infected tissue, the wound was irrigated with 2L of warm sterile saline. Hemostasis was achieved using a combination of bovie electrocautery and suture ligation of vessels. The wound was packed with six Dakin's soaked Kerlix and dressed with multiple abd pads and tape. There were no immediate complications. After the procedure, the patient remained intubated and was transferred to the ICU for further resuscitation. All needle, instrument, and lap counts were correct at the conclusion of the case. Dr. Crawford was present and scrubbed for the entirety of this procedure. At the time of surgery, the following signs of infection were present: beverley purulence, an infectious phlegmon, and an abscess. Complications: None Submitted by: Kristy Fields MD - 07/09/2025 Cosigned by Luanne Crawford MD at 07/09/2025 7:46 AM EDT Associated attestation - Luanne Crawford MD - 07/09/2025 7:46 AM EDT I was present for the entirety of the procedure(s). * Brief Op Note - Luanne Crawford MD - 07/08/2025 9:01 PM EDT Date: 07/09/25 Location: [facility] Name: Cristina Brown, : 1975, Diagnoses: Pre-op Diagnosis Necrotizing fasciitis (CMS/HCC) Post-op Diagnosis Necrotizing fasciitis (CMS/HCC) Procedure(s): Excisional debridement of right lower extremity, groin, pubis, and abdominal wall of skin, subcutaneous tissue, and muscle fascia, 65x20 cm Attending Surgeon(s): * Luanne Crwaford - Primary Magnetic Locater(s): * Kristy Fields MD - Resident - Assisting Anesthesia: General ASA: III Blood Administration: Blood Product Administration History Product Date Volume Status Transfuse RBC RBC 07/08/2025 350 mL Completed 07/08/25 2342 Transfuse fresh frozen plasma Plasma 07/08/2025 300 mL Completed 07/08/25 2342 Transfuse RBC RBC 07/08/2025 350 mL Completed 07/08/25 2342 Transfuse fresh frozen plasma Plasma 07/08/2025 300 mL Completed 07/08/25 2342 Estimated Blood Loss: 1000 mL Drains: Urethral Catheter Temperature probe 16 Fr. (Active) Site Assessment Clean;Skin intact 07/09/25 CAUTI: Collection Container Standard drainage bag;System closed;Collection container below bladder and tubing free of kinks 07/09/25 CAUTI: Securement Method Securing device (Describe) 07/09/25 CAUTI: Specimen Collection Port Covered with Alcohol Cap Yes 07/09/25 CAUTI: Urinary Catheter Indication Yes, meets indication reason 07/09/25 CAUTI: Urinary Catheter Indication Reasons ICU patient requiring output monitoring q 1-2 hours withinterventions 07/09/25 0000 Output (mL) 120 mL 07/09/25 0000 Specimen: Specimens ID Source Frozen? 1 Other (specify site) No Description: saphenous vein 2 Other (specify site) No Description: right leg A Other (specify site) Description: right inner leg B Blood, Arterial Description: abg C Other (specify site) Description: right leg Findings: Extensive necrotizing fasciitis Submitted by: Luanne Crawford MD - 07/09/2025 * Assessment & Plan Note - Amina Ramirez MD - 07/08/2025 7:44 PM EDT Associated Problem(s): Necrotizing fasciitis (CMS/HCC) Concern for acute infection WBC 26 Got 3L fluids and needed pressors at OSH prior to transfer To OR this evening as A Likely ICU post op IV antibiotics Resuscitation Marked and consented * H&P - Amina Ramirez MD - 07/08/2025 6:16 PM EDTAssociated Order(s): Consult to Emergency General Surgery Reason for Consultation: necrotizing fascitis concern Requesting Service: Emergency Department Consult to Emergency General Surgery Consult performed by: Amina Ramirez MD Consult ordered by: My Charles MD History Of Present Illness Cristina Brown is a 50 y.o. female with PMH of DM, hidradenitis supparativa, current smoker (1.5 ppd), hx of absent seizures, UTI, depression, anxiety, asthma, HLD, celiac disease, presenting to [facility] on 07/08/2025 as transfer with concern for necrotizing fascitis. EGS consulted for evaluation. Currently not on pressors. Had received 3L fluids at OSH and was started on levo which has since been weaned off. Received vancomycin, cefelexine and clindamycin at OSH. Per patient, she had wound start in R medial thigh on that she originally thought was related to her HS and lanced with help of sister. However, the wound has worsened and she notes that it is ascending and descending onher thigh. On exam, has concern for necrotic tissue with foul smelling drainage, cellulitis and warmth with tenderness to palpation. WBC of 26. Lactate of 2.6. Cr of 2.2 at OSH. CMP here pending. No CT scan but exam concerning for nec fas. She notes she was recently on bactrim for UTI that she has finished. Currently on linezolid, cefepime and flagyl in ED. Off levo. Slightly hypotensive. History Obtained From: Patient Past Medical History She has a past medical history of Anxiety, Asthma, Carpal tunnel syndrome, Depression, Diabetes ([facility]), H/O absence seizures, Hidradenitis, High cholesterol, Hypertension, Sleep apnea, and Smoker. Reviewed as documented above Surgical History She has a past surgical history that includes Hand surgery (Left, 2022); Hysterectomy (2005); Tonsilectomy, adenoidectomy, bilateral myringotomy and tubes (1991); Cholecystectomy (1994); and Carpal tunnel release. Reviewed as documented above Family History Family History[1] Reviewed as documented above Social History She reports that she has been smoking cigarettes. She has never used smokeless tobacco. She reportsthat she does not currently use alcohol. She reports current drug use. Drug: Marijuana. Reviewed as documented above Allergies Alprazolam, Bupropion, Aspirin, Doxycycline, Penicillins, and Diazepam Reviewed as documented above Medications Current Medications[2] Reviewed as documented above Review of Systems Relevant review of systems was obtained as able and is negative unless stated above in HPI. Last Recorded Vitals Pulse 99, temperature 37 ??C (98.6 ??F), temperature source Oral, resp. rate 23, weight 177 kg (391lb 1.5 oz), SpO2 93%. Physical Exam HENT: Head: Normocephalic and atraumatic. Eyes: Extraocular Movements: Extraocular movements intact. Cardiovascular: Rate and Rhythm: Normal rate. Pulmonary: Effort: No respiratory distress. Abdominal: Palpations: Abdomen is soft. Genitourinary: Comments: Right inner thigh skin wound with necrotic tissue; foul smelling drainage. Cellulitis that extends proximally and distally, and surrounding wound. Tender to palpation. Picture in media tab. Musculoskeletal: Cervical back: No rigidity. Skin: General: Skin is warm. Neurological: Mental Status: She is alert. Mental status is at baseline. Psychiatric: Thought Content: Thought content normal. Recent Results Labs in last 18 hours CBC WBC 26.15 (H) Hb 10.9 (L) Plt 329 Hct 33.6 (L) ANC ?? INR 1.2 (H), PTT ??, Anti-Xa ?? BMP Na ?? Cl ?? BUN ?? Glu ?? K ?? Co2 ?? Cr ?? Ca ?? iCa ?? Mg ??, Phos ?? Lactate ?? LFT AST ?? AlkPhos ?? T Prot ?? ALK ?? Bili ?? Alb ?? D.Bili ?? Radiology No imaging available Assessment & Plan Necrotizing fasciitis (CMS/HCC) Present on Admission: Unknown Concern for acute infection WBC 26 Got 3L fluids and needed pressors at OSH prior to transfer To OR this evening as A Likely ICU post op IV antibiotics Resuscitation Marked and consented DM (diabetes mellitus) (CMS/HCC) Present on Admission: Yes Hidradenitis Present on Admission: Yes Smoker Present on Admission: Yes Non-Hospital Problems Carpal tunnel syndrome Chronic obstructive pulmonary disease, unspecified (CMS/HCC) Overview Signed 08/31/2023 9:36 AM by Janell Bueno Assessment & Plan: Condition: stable Reviewed trigger avoidance and reviewed proper use of inhalers and rescue medications. Reviewed concerning signs/symptoms and ER precautions. Follow up in: three months Dehydration Hidradenitis suppurativa History of hysterectomy HTN (hypertension), benign Depression Morbid (severe) obesity due to excess calories (CMS/HCC) Overview Signed 08/31/2023 9:36 AM by Janell Bueno Last Assessment & Plan: Condition: stable Co-morbidities: Type 2 Diabetes Follow up in: three months Marijuana smoker Pharyngitis Smoker Type 2 diabetes mellitus Overview Signed 08/31/2023 9:36 AM by Janell Bueno Last Assessment & Plan: Condition: stable Discussed glucose control targets. Educated on: Lifestyle changes Follow up in: three months with PCP Vitamin D deficiency Overview Signed 08/31/2023 9:36 AM by Janell Bueno Last Assessment & Plan: Condition: stable Follow up in: three months Wound dehiscence Urge incontinence Stress incontinence Nocturia Dispo: to OR CODE STATUS: full code This Consult, Assessment, and Plan has been discussed with Dr. Crawford, Attending Physician [1] Family History Problem Relation Name Age of Onset Hypertension Mother COPD Mother Heart failure Mother Diabetes Mother Kidney cancer Mother Other (enlarge liver) Mother Hyperlipidemia Mother Lung cancer Father [2] Current Facility-Administered Medications Medication Dose Route Frequency Provider Last Rate Last Admin cefepime (Maxipime) 2 g in sodium chloride 0.9% 100 mL IVPB (vial adapter required) 2 g [id number] Deepthi Garcia MD linezolid (Zyvox) injection 600 mg 600 mg Intravenous q12h Deepthi Garcia MD 600 mL/hr at 07/08/25 1820 600 mg at 07/08/25 1820 metroNIDAZOLE (Flagyl) IVPB 500 mg 500 mg Intravenous q8h Deepthi Garcia MD norepinephrine 8 mg/250 mL (0.032 mg/mL) infusion 0.02-0.4 mcg/kg/min Intravenous Titrated Deepthi Garcia MD 13.28 mL/hr at 07/08/25 1816 0.04 mcg/kg/min at 07/08/25 1816 Current Outpatient Medications Medication Sig Dispense Refill budesonide-formoterol (Symbicort) 160-4.5 MCG/ACT inhaler busPIRone (Buspar) 10 MG tablet Take 1 tablet (10 mg) by mouth twice a day. cephalexin (Keflex) 500 MG capsule TAKE 1 CAPSULE BY MOUTH 4 TIMES DAILY cholecalciferol (Vitamin D-3) 5,000 Units tablet Docusate Sodium (DSS) 100 MG capsule Take 200 mg by mouth 1 (one) time each day. DULoxetine (Cymbalta) [address] capsule Take 2 capsules (60 mg) by mouth 1 (one) time each day. escitalopram (Lexapro) 5 MG tablet Take 1 tablet (5 mg) by mouth 1 (one) time each day. as directed fluticasone (Flonase) 50 MCG/ACT nasal spray Administer 2 sprays into affected nostril(s) twice a day. folic acid (Folvite) 1 MG tablet Take 1 tablet (1 mg) by mouth 1 (one) time each day. Linzess 72 MCG capsule capsule metFORMIN (Glucophage) 500 MG tablet Take by mouth twice a day. mirabegron ER (Myrbetriq) 25 MG tablet Take 1 tablet by mouth daily. 30 tablet 3 Misc Natural Products (Osteo Bi-Flex Adv Triple St) tablet Take 1 tablet by mouth twice a day. montelukast (Singulair) 10 MG tablet Take 1 tablet (10 mg) by mouth 1 (one) time each day. naproxen (Naprosyn) 500 MG tablet Take 1 tablet (500 mg) by mouth 2 (two) times a day with meals. nitrofurantoin, macrocrystal-monohydrate, (Macrobid) 100 MG capsule TAKE 1 CAPSULE BY MOUTH EVERY 12 HOURS WITH FOOD (Patient not taking: Reported on 02/29/2024) Ozempic, 1 MG/DOSE, 4 MG/3ML solution pen-injector INJECT 1 MG SUBCUTANEOUSLY ONCE A WEEK ON THE SAME DAY EACH WEEK polycarbophil (EQ Fiber Therapy) 625 MG tablet Procto-Med HC 2.5 % rectal cream APPLY A THIN LAYER OF CREAM TO AFFECTED AREA(S) 2-4 TIMES DAILY rosuvastatin (Crestor) 20 MG tablet Take 1 tablet (20 mg) by mouth 1 (one) time each day. valsartan-hydroCHLOROthiazide (Diovan-HCT) 320-12.5 MG tablet Take 1 tablet by mouth 1 (one) time each day. Vitamin E 180 MG (400 UNIT) capsule Cosigned by Luanne Crawford MD at 07/09/2025 7:40 AM EDT Associated attestation - Luanne Crawford MD - 07/09/2025 7:40 AM EDT I have seen and examined the patient with the resident/fellow/MARLA. I discussed the case with the resident/fellow/MARLA and agree with the findings and plan as documented. I have spent more than 30 minutes in the care of this patient. I performed the substantive portion of medical decision making for this day. -Septic shock secondary to necrotizing soft tissue infection. Broad abx coverage, to OR as A case for debridement -Cultures sent from OR -ICU postoperatively * ED Procedure Note - My Charles MD - 07/08/2025 5:58 PM EDT Associated Order(s): Critical Care Procedure Reason: NSTI Critical Care Performed by: My Charles MD Authorized by: My Charles MD Critical care provider statement: Critical care time (minutes): 35 Critical care time was exclusive of: Separately billable procedures and treating other patients andteaching time Critical care was time spent personally by me on the following activities: Development of treatmentplan with patient or surrogate, discussions with consultants, discussions with primary provider, evaluation of patient's response to treatment, examination of patient, obtaining history from patient or surrogate, ordering and review of laboratory studies, ordering and performing treatments and interventions and ordering and review of radiographic studies Critical care statement: I saw and evaluated the patient with the resident/ fellow. I discussed thecase with the resident/ fellow and agree with the findings and plan as documented. My Charles MD 07/08/252113 * ED Provider Notes - Deepthi Garcia MD - 07/08/2025 5:58 PM EDT Images from the original note were not included. - HPI Chief Complaint Patient presents with Wound Check Cristina Brown is a 50 yo F with a PMH of DM, hidradenitis supparativa, current smoker (1.5 ppd), asthma, HLD, celiac disease, presenting to [facility] on 07/08/2025 as transfer with concern for necrotizing fascitis. Patient states she had a boil on rigth groin that she self popped a few days ago.Since then it has gotten extremely painful and states it started developing blisters. She was seen at OSH where she was hypotensive and tachycardic and they were concerned the wound was nec fas. She was given 3L of LR and continued to by hypotensive and was subsequently started on levophed. She wasalso started on vancomycin, clindamycin, and cefalexin. Upon arrival, EMS stated she had systolics ranging for 70s-100s during transport and was requiring 10 mcg of levo. She denied chest pain, abdominal pain, or SOB, She did endorse significant pain on her right groin that extended into her right hip., Patient History Past Medical History[1] Surgical History[2] Family History[3] Social History[4] Allergies: Allergies[5] Physical Exam ED Triage Vitals Temp Heart Rate Resp BP 07/08/25 1804 07/08/25 1804 07/08/25 1804 07/08/25 1820 37 ??C (98.6 ??F) 99 23 (!) 107/48 SpO2 Temp Source Heart Rate Source Patient Position 07/08/25 1804 07/08/25 1804 07/08/25 1804 07/08/25 2334 93 % Oral Monitor Lying BP Location FiO2 (%) 07/08/25 2334 07/08/25 2330 Right arm 40 % Physical Exam Constitutional: General: She is not in acute distress. Appearance: She is obese. HENT: Head: Normocephalic and atraumatic. Cardiovascular: Rate and Rhythm: Regular rhythm. Tachycardia present. Pulmonary: Effort: Pulmonary effort is normal. Breath sounds: Normal breath sounds. Abdominal: General: There is no distension. Palpations: Abdomen is soft. Tenderness: There is no abdominal tenderness. Skin: General: Skin is dry. Capillary Refill: Capillary refill takes 2 to 3 seconds. Findings: Wound present. Comments: Pic in media tab Neurological: General: No focal deficit present. Psychiatric: Mood and Affect: Mood normal. Behavior: Behavior normal. ED Course & MDM - Assessment: 50 y.o. female presents to ED with complaint of wound. It should be noted that the chronic conditions includes obesity,TUD, and DM, which currently is not at goal therapy. This complicates the clinical picture because it Comorbidities: may be exacerbating symptoms, increases the amount and complexity of data to be reviewed, complicates the clinical workup, and increases the risk for morbidity Differential Diagnosis: nec fas, cellulitis, sepsis, gangrene, TSS, pyomyositis, abscess, compartment syndrome, among others In order to fully explore the differential diagnosis the following treatments and tests were ordered: ED Medication Administration from 07/08/2025 1600 to 07/08/20251955 Date/Time Order Dose Route Action 07/08/20251815 EDT norepinephrine 8 mg/250 mL (0.032 mg/mL) infusion 0.04 mcg/kg/min Intravenous New Bag 07/08/2025 1820 EDT linezolid (Zyvox) injection 600 mg 600 mg Intravenous New Bag 07/08/2025 190 EDT linezolid (Zyvox) injection 600 mg 0 mg Intravenous Stopped All Other Orders Ordered Status Ordering Provider 07/08/251916 NPO diet Diet effective midnight Acknowledged AMINA RAMIREZ 07/08/251955 Admit to inpatient Once Completed AMINA RAMIREZ 07/08/251916 Skin prep Once Acknowledged AMINA RAMIREZ 07/08/251916 Hibiclens Scrub Until discontinued Comments: Shower/scrub evening before and morning of procedure; include 5 minutes scrub each time to operative site with chlorhexidine gluconate 4% (Hibiclens). Acknowledged AMINA RAMIREZ 07/08/251916 Void fashion director party plan sales to OR Once Acknowledged AMINA RAMIREZ 07/08/251916 Case Request Operating Room: IRRIGATION AND DEBRIDEMENT, WOUND Once Completed AMINA RAMIREZ 07/08/251818 Once Canceled MY CHARLES 07/08/251815 Once Canceled DEEPTHI GARCIA 07/08/251808 CMP STAT Final result MY CHARLES 09/01/25 1809 CBC w/diff STAT Final result MY CHARLES 07/08/25 1809 PT-INR STAT Final result MY CHARLES 07/08/25 180 Type and screen Start now Final result MY CHARLES 07/08/25 180 Lactic acid, venous STAT Final result MY CHARLES 07/08/25 1809 C-Reactive protein STAT Final result MY CHARLES 07/08/25 180 Blood Culture (Aerobic/Anaerobet Set) STAT Acknowledged MY CHARLES Carlos 07/08/25 180 Blood Culture (Aerobic/Anaerobet Set) STAT Acknowledged MY CHARLES 07/08/25 180 Hepatitis C Antibody - ED Once Final result MY CHARLES 07/08/25 180 ED Protocol - HIV 1/2 Antibody/Antigen Screen Once Final result MY CHARLES 07/08/25 180 ED HIV 1/2 Antibody/Antigen Screen w/Reflex to HIV 1/2 Differentiation PROCEDURE ONCE Final result MY CHARLES 07/08/25 180 Consult to Emergency General Surgery Once Provider: (Not yet assigned) Completed DEEPTHI GARCIA ED Course as of 07/09/25132Jul 08, 20251818 Upon arrival patient was stable with airway intact. Initial BP in 110 systolic. Patient levo was discontinued. Vancomycin was not completed and thus linezolid was added to regimen [MR] 1856 CBC w/diff(!) Significant Leukocytosis [MR] 1856 Consulted Emergency General Surgery, and had an interactive discussion regarding further evaluation and recommendations for the management of Necrotizing Fasc. They decided to for go CT scan andtake patient to OR without imaging due to extensive nature of wound. [MR] 1916 Lactic acid, venous(!) elevated [MR] 1999 C-Reactive protein(!) elevated [MR] TueJul 09, 2025 013 Blood cultures ordered and pending [MR] 013 CMP(!) Based on labs, patient with LRINEC score of 13-high risk [MR] ED Course User Index [MR] Deepthi Garcia MD Clinical Impressions as of 07/09/25 013 Necrotizing fasciitis due to microorganism ([facility]) Social Determinates of Health Risks (including Economic Stability, Education and level of understanding, Healthcare access and quality and concerning social factors): Poor health literacy, Chronic tobacco use, and Social factors impacting patient's psychosocial well-being Ultimately, this patient was Was admitted (Admission) The primary encounter diagnosis was Necrotizing fasciitis (CMS/HCC). A diagnosis of 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) was also pertinent to this visit.. Patient believed to require admission for the listed diagnoses. The General Surgery service was consulted for admission and was agreeable to admit to ICU. ED Prescriptions None Disposition Admit Admitting/Attending Physician: LUANNE CRAWFORD [[id number]] Provider Care Team: [facility] GENERAL SURGERY ICU 1 [159] Are they the primary team?: Yes [1] Thank you for allowing me to participate in your care. Deepthi Garcia MD Emergency Medicine PGY 1' [1] Past Medical History: Diagnosis Date Anxiety Asthma Carpal tunnel syndrome Depression Diabetes (CMS/HCC) H/O absence seizures Hidradenitis High cholesterol Hypertension Sleep apnea Smoker [2] Past Surgical History: Procedure Laterality Date CARPAL TUNNEL RELEASE 2 carpal tunnel surgeries - Aug CHOLECYSTECTOMY 1994 HAND SURGERY Left 2022 carpal tunnel HYSTERECTOMY 2005 TONSILECTOMY, ADENOIDECTOMY, BILATERAL MYRINGOTOMY AND TUBES 1991 [3] Family History Problem Relation Name Age of Onset Hypertension Mother COPD Mother Heart failure Mother Diabetes Mother Kidney cancer Mother Other (enlarge liver) Mother Hyperlipidemia Mother Lung cancer Father [4] Tobacco Use Smoking status: Every Day Current packs/day: 1.00 Types: Cigarettes Smokeless tobacco: Never Vaping Use Vaping status: Never Used Substance Use Topics Alcohol use: Not Currently Drug use: Yes Types: Marijuana [5] Allergies Allergen Reactions Alprazolam Other - please document in the comment field Bupropion Anaphylaxis Aspirin Hives and Rash Doxycycline Hives and Rash Penicillins Hives and Rash Diazepam Other - please document in the comment field Makes her mean Deepthi Garcia MD Resident 07/09/25 [id number] Cosigned by My Charles MD at 07/09/2025 7:27 AM EDT Associated attestation - My Charles MD - 07/09/2025 7:27 AM EDT I saw and evaluated the patient with the resident/fellow. I discussed the case with the resident/fellow and agree with the findings and plan as documented. * ED Triage Notes - Kadi Bustamante, RN - 07/08/2025 5:58 PM EDT Pt had redness to right groin/thigh and now has nec fas. Was hypotensive at OSH and started on levo. documented in this encounter Plan of Treatment Upcoming Encounters Date Type Department Care Team (Late st Contact Info) Description 11/19/2025 8:20 AM EST Office Visit Medical Office Building Urology [address], [address] [place] [id number] Deepthi Matamoros E, MATCHING MACHINE OPERATOR [address] [facility] [address] [place] [phone] Scheduled Referrals Name Type Priority Associated Diagnoses Order Schedule Discharge Ambulatory referral to NON Endocrinology Outpatient Referral Routine Morbid (severe) obesity due to excess calories (CMS/HCC) Type 2 diabetes mellitus with hyperglycemia, without long-term current use of insulin (CMS/[facility]) Celiac disease Expected: 07/15/2025 (Approximate), Expires: 01/16/2027 documented as of this encounter Procedures Procedure Name Priority Date/Time Associated Diagnosis Comments POCT GLUCOSE METER UNSOLICITED RESULTS Routine 07/19/2025 12:27 PM EDT CBC W/O DIFFERENTIAL Pending Discharge 07/19/2025 4:28 AM EDT PHOSPHORUS, PLASMA Pending Discharge 07/19/2025 4:28 AM EDT MAGNESIUM, PLASMA Pending Discharge 07/19/2025 4:28 AM EDT BASIC METABOLIC PANEL, PLASMA Routine 07/19/2025 4:28 AM EDT POCT GLUCOSE METER UNSOLICITED RESULTS Routine 07/18/2025 8:33 PM EDT POCT GLUCOSE METER UNSOLICITED RESULTS Routine 07/18/2025 6:07 PM EDT PEP THERAPY Routine 07/18/2025 1:09 PM EDT POCT GLUCOSE METER UNSOLICITED RESULTS Routine 07/18/2025 12:36 PM EDT OXYGEN THERAPY Routine 07/18/2025 10:12 AM EDT OXYGEN THERAPY Routine 07/18/2025 10:12 AM EDT POCT GLUCOSE METER UNSOLICITED RESULTS Routine 07/18/2025 8:39 AM EDT PEP THERAPY Routine 07/18/2025 7:09 AM EDT CBC W/O DIFFERENTIAL Routine 07/18/2025 6:03 AM EDT BASIC METABOLIC PANEL, PLASMA Routine 07/18/2025 6:03 AM EDT PEP THERAPY Routine 07/18/2025 1:09 AM EDT POCT GLUCOSE METER UNSOLICITED RESULTS Routine 07/17/2025 10:33 PM EDT PEP THERAPY Routine 07/17/2025 7:09 PM EDT INSERT PERIPHERAL IV Routine 07/17/2025 5:14 PM EDT POCT GLUCOSE METER UNSOLICITED RESULTS Routine 07/17/2025 5:10 PM EDT PEP THERAPY Routine 07/17/2025 1:09 PM EDT POCT GLUCOSE METER UNSOLICITED RESULTS Routine 07/17/2025 12:06 PM EDT US EXTREMITY LIMITED MSK OR SOFT TISSUE STAT 07/17/2025 11:01 AM EDT METHICILLIN RESISTANT STAPHYLOCOCCUS AUREUS (MRSA) BY PCR Routine 07/17/2025 10:14 AM EDT POCT GLUCOSE METER UNSOLICITED RESULTS Routine 07/17/2025 9:35 AM EDT OXYGEN THERAPY Routine 07/17/2025 8:00 AM EDT PEP THERAPY Routine 07/17/2025 7:09 AM EDT CBC W/O DIFFERENTIAL Routine 07/17/2025 5:20 AM EDT PHOSPHORUS, PLASMA Routine 07/17/2025 5: 20 AM EDT MAGNESIUM, PLASMA Routine 07/17/2025 5:2 0 AM EDT BASIC METABOLIC PANEL, PLASMA Routine 07/17/2025 5:20 AM EDT PEP THERAPY Routine 07/17/2025 1:09 AM EDT POCT GLUCOSE METER UNSOLICITED RESULTS Routine 07/16/2025 8:24 PM EDT OXYGEN THERAPY Routine 07/16/2025 8:00 PM EDT PEP THERAPY Routine 07/16/2025 7:09 PM EDT POCT GLUCOSE METER UNSOLICITED RESULTS Routine 07/16/2025 5:34 PM EDT PEP THERAPY Routine 07/16/2025 1:09 PM EDT POCT GLUCOSE METER UNSOLICITED RESULTS Routine 07/16/2025 12:06 PM EDT XR CHEST 1 VIEW STAT 07/16/2025 11:25 AM EDT VAS US VENOUS DUPLEX LOWER EXTREMITY BILATERAL STAT 07/16/2025 9:03 AM EDT POCT GLUCOSE METER UNSOLICITED RESULTS Routine 07/16/2025 8:22 AM EDT OXYGEN THERAPY Routine 07/16/2025 8:00 AM EDT PEP THERAPY Routine 07/16/2025 7:09 AM EDT CBC W/O DIFFERENTIAL Routine 07/16/2025 5:25 AM EDT PHOSPHORUS, PLASMA Add-On 07/16/2025 5: 25 AM EDT MAGNESIUM, PLASMA Add-On 07/16/2025 5:2 5 AM EDT BASIC METABOLIC PANEL, PLASMA Routine 07/16/2025 5:25 AM EDT PEP THERAPY Routine 07/16/2025 1:09 AM EDT POCT GLUCOSE METER UNSOLICITED RESULTS Routine 07/15/2025 9:38 PM EDT OXYGEN THERAPY Routine 07/15/2025 8:00 PM EDT PEP THERAPY Routine 07/15/2025 7:09 PM EDT POCT GLUCOSE METER UNSOLICITED RESULTS Routine 07/15/2025 6:03 PM EDT PEP THERAPY Routine 07/15/2025 1:09 PM EDT POCT GLUCOSE METER UNSOLICITED RESULTS Routine 07/15/2025 12:38 PM EDT POCT GLUCOSE METER UNSOLICITED RESULTS Routine 07/15/2025 8:38 AM EDT OXYGEN THERAPY Routine 07/15/2025 8:00 AM EDT NON-INVASIVE VENTILATION Routine 07/15/2025 8:00 AM EDT WOUND OSTOMY EVAL AND TREAT Routine 07/15/2025 7:21 AM EDT PEP THERAPY Routine 07/15/2025 7:09 AM EDT PHOSPHORUS, PLASMA Add-On 07/15/2025 4: 50 AM EDT MAGNESIUM, PLASMA Add-On 07/15/2025 4:5 0 AM EDT BASIC METABOLIC PANEL, PLASMA Routine 07/15/2025 4:50 AM EDT PEP THERAPY Routine 07/15/2025 1:09 AM EDT OXYGEN THERAPY Routine 07/14/2025 8:00 PM EDT NON-INVASIVE VENTILATION Routine 07/14/2025 8:00 PM EDT POCT GLUCOSE METER UNSOLICITED RESULTS Routine 07/14/2025 7:57 PM EDT PEP THERAPY Routine 07/14/2025 7:09 PM EDT POCT GLUCOSE METER UNSOLICITED RESULTS Routine 07/14/2025 4:56 PM EDT DEBRIDEMENT, WOUND 07/14/2025 2: 26 PM EDT Necrotizing fasciitis (CMS/HCC) PEP THERAPY Routine 07/14/2025 1:09 PM EDT POCT GLUCOSE METER UNSOLICITED RESULTS Routine 07/14/2025 12:38 PM EDT CBC W/O DIFFERENTIAL Routine 07/14/2025 9:36 AM EDT PHOSPHORUS, PLASMA Routine 07/14/2025 9: 36 AM EDT MAGNESIUM, PLASMA Routine 07/14/2025 9:3 6 AM EDT BASIC METABOLIC PANEL, PLASMA Routine 07/14/2025 9:36 AM EDT POCT GLUCOSE METER UNSOLICITED RESULTS Routine 07/14/2025 8:39 AM EDT OXYGEN THERAPY Routine 07/14/2025 8:00 AM EDT NON-INVASIVE VENTILATION Routine 07/14/2025 8:00 AM EDT PEP THERAPY Routine 07/14/2025 7:09 AM EDT POCT GLUCOSE METER UNSOLICITED RESULTS Routine 07/14/2025 6:18 AM EDT PEP THERAPY Routine 07/14/2025 1:09 AM EDT POCT GLUCOSE METER UNSOLICITED RESULTS Routine 07/13/2025 9:18 PM EDT OXYGEN THERAPY Routine 07/13/2025 8:00 PM EDT NON-INVASIVE VENTILATION Routine 07/13/2025 8:00 PM EDT PEP THERAPY Routine 07/13/2025 7:09 PM EDT POCT GLUCOSE METER UNSOLICITED RESULTS Routine 07/13/2025 6:01 PM EDT PEP THERAPY Routine 07/13/2025 1:09 PM EDT POCT GLUCOSE METER UNSOLICITED RESULTS Routine 07/13/2025 12:12 PM EDT CBC W/O DIFFERENTIAL Routine 07/13/2025 10:21 AM EDT PHOSPHORUS, PLASMA Routine 07/13/2025 10:21 AM EDT MAGNESIUM, PLASMA Routine 07/13/2025 10:21 AM EDT BASIC METABOLIC PANEL, PLASMA Routine 07/13/2025 10:21 AM EDT POCT GLUCOSE METER UNSOLICITED RESULTS Routine 07/13/2025 8:50 AM EDT OXYGEN THERAPY Routine 07/13/2025 8:00 AM EDT NON-INVASIVE VENTILATION Routine 07/13/2025 8:00 AM EDT PEP THERAPY Routine 07/13/2025 7:09 AM EDT POCT GLUCOSE METER UNSOLICITED RESULTS Routine 07/13/2025 6:11 AM EDT PEP THERAPY Routine 07/13/2025 1:09 AM EDT POCT GLUCOSE METER UNSOLICITED RESULTS Routine 07/12/2025 9:28 PM EDT OXYGEN THERAPY Routine 07/12/2025 8:00 PM EDT NON-INVASIVE VENTILATION Routine 07/12/2025 8:00 PM EDT PEP THERAPY Routine 07/12/2025 7:09 PM EDT POCT GLUCOSE METER UNSOLICITED RESULTS Routine 07/12/2025 6:04 PM EDT INSERT PERIPHERAL IV Routine 07/12/2025 3:51 PM EDT OXYGEN THERAPY Routine 07/12/2025 3:26 PM EDT OXYGEN THERAPY Routine 07/12/2025 3:26 PM EDT PEP THERAPY Routine 07/12/2025 1:09 PM EDT POCT GLUCOSE METER UNSOLICITED RESULTS Routine 07/12/2025 11:55 AM EDT XR CHEST 1 VIEW STAT 07/12/2025 11:11 AM EDT POCT GLUCOSE METER UNSOLICITED RESULTS Routine 07/12/2025 8:41 AM EDT NON-INVASIVE VENTILATION Routine 07/12/2025 8:03 AM EDT NON-INVASIVE VENTILATION Routine 07/12/2025 8:03 AM EDT NON-INVASIVE VENTILATION Routine 07/12/2025 8:03 AM EDT PEP THERAPY Routine 07/12/2025 7:09 AM EDT PEP THERAPY Routine 07/12/2025 1:09 AM EDT CBC W/O DIFFERENTIAL Routine 07/12/2025 12:25 AM EDT PHOSPHORUS, PLASMA Routine 07/12/2025 12:25 AM EDT MAGNESIUM, PLASMA Routine 07/12/2025 12:25 AM EDT BASIC METABOLIC PANEL, PLASMA Routine 07/12/2025 12:25 AM EDT POCT GLUCOSE Routine 07/11/2025 8:45 PM EDT POCT GLUCOSE Routine 07/11/2025 8:43 PM EDT POCT GLUCOSE METER UNSOLICITED RESULTS Routine 07/11/2025 8:42 PM EDT PEP THERAPY Routine 07/11/2025 7:09 PM EDT POCT GLUCOSE METER UNSOLICITED RESULTS Routine 07/11/2025 5:38 PM EDT POCT GLUCOSE METER UNSOLICITED RESULTS Routine 07/11/2025 3:36 PM EDT APPLICATION OR REPLACEMENT, WOUND VAC 07/11/2025 1:57 PM EDT Necrotizing fasciitis (CMS/HCC) POCT GLUCOSE METER UNSOLICITED RESULTS Routine 07/11/2025 1:52 PM EDT PEP THERAPY Routine 07/11/2025 1:09 PM EDT POCT GLUCOSE METER UNSOLICITED RESULTS Routine 07/11/2025 12:12 PM EDT POCT GLUCOSE METER UNSOLICITED RESULTS Routine 07/11/2025 9:57 AM EDT [facility], E/M 30-74 MINUTES Routine 07/11/2025 8:41 AM EDT Necrotizing fasciitis ([facility]) Morbid (severe) obesity due to excess calories ([facility]) Septic shock ([facility]) Type 2 diabetes mellitus with hyperglycemia, without long-term current use of insulin ([facility]) Respiratory insufficiency POCT GLUCOSE METER UNSOLICITED RESULTS Routine 07/11/2025 8:13 AM EDT OXYGEN THERAPY Routine 07/11/2025 8:00 AM EDT PEP THERAPY Routine 07/11/2025 7:08 AM EDT PEP THERAPY Routine 07/11/2025 7:08 AM EDT PEP THERAPY Routine 07/11/2025 7:08 AM EDT PEP THERAPY Routine 07/11/2025 7:08 AM EDT PEP THERAPY Routine 07/11/2025 7:08 AM EDT POCT GLUCOSE METER UNSOLICITED RESULTS Routine 07/11/2025 6:03 AM EDT POCT GLUCOSE METER UNSOLICITED RESULTS Routine 07/11/2025 4:04 AM EDT POCT GLUCOSE METER UNSOLICITED RESULTS Routine 07/11/2025 2:02 AM EDT CBC W/O DIFFERENTIAL Routine 07/11/2025 12:09 AM EDT PHOSPHORUS, PLASMA Routine 07/11/2025 12:09 AM EDT MAGNESIUM, PLASMA Routine 07/11/2025 12:09 AM EDT BASIC METABOLIC PANEL, PLASMA Routine 07/11/2025 12:09 AM EDT POCT GLUCOSE METER UNSOLICITED RESULTS Routine 07/11/2025 12:04 AM EDT POCT GLUCOSE METER UNSOLICITED RESULTS Routine 07/10/2025 10:02 PM EDT BLOOD GAS PANEL, ARTERIAL STAT 07/10/2025 8:23 PM EDT POCT GLUCOSE METER UNSOLICITED RESULTS Routine 07/10/2025 8:03 PM EDT OXYGEN THERAPY Routine 07/10/2025 8:00 PM EDT OXYGEN THERAPY Routine 07/10/2025 6:46 PM EDT OXYGEN THERAPY Routine 07/10/2025 6:46 PM EDT POCT GLUCOSE METER UNSOLICITED RESULTS Routine 07/10/2025 6:22 PM EDT DEBRIDEMENT, WOUND 07/10/2025 3: 00 PM EDT Necrotizing fasciitis (CMS/HCC) POCT GLUCOSE METER UNSOLICITED RESULTS Routine 07/10/2025 2:17 PM EDT XR ABDOMEN 1 VIEW Routine 07/10/2025 12:03 PM EDT POCT GLUCOSE METER UNSOLICITED RESULTS Routine 07/10/2025 12:00 PM EDT POCT GLUCOSE METER UNSOLICITED RESULTS Routine 07/10/2025 9:50 AM EDT ECG ADULT STAT 07/10/2025 8:42 AM EDT [facility] CR[facility] CARE, E/M 30-74 MINUTES Routine 07/10/2025 8:15 AM EDT Necrotizing fasciitis (CMS/HCC) Morbid (severe) obesity due to excess calories (CMS/HCC) Septic shock (CMS/HCC) Acute respiratory failure with hypoxia POCT GLUCOSE METER UNSOLICITED RESULTS Routine 07/10/2025 8:04 AM EDT POCT GLUCOSE METER UNSOLICITED RESULTS Routine 07/10/2025 6:04 AM EDT POCT GLUCOSE METER UNSOLICITED RESULTS Routine 07/10/2025 3:59 AM EDT POCT GLUCOSE METER UNSOLICITED RESULTS Routine 07/10/2025 3:01 AM EDT POCT GLUCOSE METER UNSOLICITED RESULTS Routine 07/10/2025 2:03 AM EDT POCT GLUCOSE METER UNSOLICITED RESULTS Routine 07/10/2025 12:59 AM EDT CBC W/O DIFFERENTIAL Routine 07/10/2025 12:03 AM EDT PHOSPHORUS, PLASMA Routine 07/10/2025 12:03 AM EDT MAGNESIUM, PLASMA Routine 07/10/2025 12:03 AM EDT BASIC METABOLIC PANEL, PLASMA Routine 07/10/2025 12:03 AM EDT POCT GLUCOSE METER UNSOLICITED RESULTS Routine 07/10/2025 12:02 AM EDT POCT GLUCOSE METER UNSOLICITED RESULTS Routine 07/09/2025 10:01 PM EDT POCT GLUCOSE METER UNSOLICITED RESULTS Routine 07/09/2025 8:09 PM EDT POCT GLUCOSE METER UNSOLICITED RESULTS Routine 07/09/2025 6:22 PM EDT POCT GLUCOSE METER UNSOLICITED RESULTS Routine 07/09/2025 4:06 PM EDT BLOOD GAS PANEL, ARTERIAL Routine 07/09/2025 3:16 PM EDT POCT GLUCOSE METER UNSOLICITED RESULTS Routine 07/09/2025 3:01 PM EDT POCT GLUCOSE METER UNSOLICITED RESULTS Routine 07/09/2025 1:57 PM EDT PHOSPHORUS, PLASMA STAT 07/09/2025 1: 21 PM EDT MAGNESIUM, PLASMA STAT 07/09/2025 1:2 1 PM EDT BASIC METABOLIC PANEL, PLASMA STAT 07/09/2025 1:21 PM EDT POCT GLUCOSE METER UNSOLICITED RESULTS Routine 07/09/2025 1:20 PM EDT POCT GLUCOSE METER UNSOLICITED RESULTS Routine 07/09/2025 12:44 PM EDT POCT GLUCOSE METER UNSOLICITED RESULTS Routine 07/09/2025 12:19 PM EDT BLOOD CULTURE (AEROBIC/ANAEROBIC SET) STAT 07/09/2025 10:35 AM EDT BLOOD CULTURE (AEROBIC/ANAEROBIC SET) STAT 07/09/2025 10:35 AM EDT POCT GLUCOSE METER UNSOLICITED RESULTS Routine 07/09/2025 10:04 AM EDT MULTI DRUG RESISTANCE TEST Routine 07/09/2025 9:46 AM EDT VENTILATOR - ADULT Routine 07/09/2025 9: 00 AM EDT BLOOD GAS PANEL, ARTERIAL Routine 07/09/2025 8:47 AM EDT POCT GLUCOSE METER UNSOLICITED RESULTS Routine 07/09/2025 8:01 AM EDT END TIDAL CO2 MONITORING Routine 07/09/2025 8:00 AM EDT [facility] CRITICAL CARE, E/M 30-74 MINUTES Routine 07/09/2025 7:15 AM EDT Necrotizing fasciitis (CMS/HCC) Morbid (severe) obesity due to excess calories (CMS/HCC) Septic shock (CMS/HCC) Acute respiratory failure with hypoxia POCT GLUCOSE METER UNSOLICITED RESULTS Routine 07/09/2025 6:05 AM EDT CBC W/O DIFFERENTIAL Routine 07/09/2025 4:57 AM EDT PHOSPHORUS, PLASMA Routine 07/09/2025 4: 57 AM EDT MAGNESIUM, PLASMA Routine 07/09/2025 4:5 7 AM EDT HEMOGLOBIN A1C Add-On 07/09/2025 4:57 AM EDT BASIC METABOLIC PANEL, PLASMA Routine 07/09/2025 4:57 AM EDT POCT GLUCOSE METER UNSOLICITED RESULTS Routine 07/09/2025 4:03 AM EDT XR CHEST 1 VIEW STAT 07/09/2025 3:42 AM EDT POCT GLUCOSE METER UNSOLICITED RESULTS Routine 07/09/2025 2:15 AM EDT BLOOD GAS PANEL, ARTERIAL Routine 07/09/2025 2:11 AM EDT POCT GLUCOSE METER UNSOLICITED RESULTS Routine 07/09/2025 1:22 AM EDT POCT GLUCOSE METER UNSOLICITED RESULTS Routine 07/09/2025 12:06 AM EDT APTT STAT 07/08/2025 11:53 PM EDT PROTHROMBIN TIME(PT) / INR STAT 07/08/2025 11:53 PM EDT CBC W/O DIFFERENTIAL STAT 07/08/2025 11:52 PM EDT PHOSPHORUS, PLASMA STAT 07/08/2025 11:52 PM EDT MAGNESIUM, PLASMA STAT 07/08/2025 11:52 PM EDT BASIC METABOLIC PANEL, PLASMA STAT 07/08/2025 11:52 PM EDT RICHIE AURIS SURVEILLANCE BY PCR Routine 07/08/2025 11:50 PM EDT MULTI DRUG RESISTANCE TEST Routine 07/08/2025 11:50 PM EDT BLOOD GAS PANEL, ARTERIAL STAT 07/08/2025 11:50 PM EDT POCT GLUCOSE METER UNSOLICITED RESULTS Routine 07/08/2025 11:49 PM EDT END TIDAL CO2 MONITORING Routine 07/08/2025 11:47 PM EDT END TIDAL CO2 MONITORING Routine 07/08/2025 11:47 PM EDT END TIDAL CO2 MONITORING Routine 07/08/2025 11:47 PM EDT SBT - SPONTANEOUS BREATHING TRIAL Routine 07/08/2025 11:47 PM EDT VENTILATOR - ADULT Routine 07/08/2025 11:47 PM EDT TISSUE CULTURE AND GRAM STAIN Routine 07/08/2025 10:48 PM EDT Necrotizing fasciitis (CMS/HCC) TRANSFUSE FRESH FROZEN PLASMA Routine 07/08/2025 10:29 PM EDT TRANSFUSE RED BLOOD CELLS Routine 07/08/2025 10:29 PM EDT BLOOD GAS PANEL, ARTERIAL STAT 07/08/2025 10:08 PM EDT Necrotizing fasciitis (CMS/HCC) SURGICAL PATHOLOGY EXAM Routine 07/08/2025 10:07 PM EDT Necrotizing fasciitis (CMS/HCC) TRANSFUSE FRESH FROZEN PLASMA Routine 07/08/2025 9:41 PM EDT TRANSFUSE RED BLOOD CELLS Routine 07/08/2025 9:41 PM EDT PREPARE FRESH FROZEN PLASMA Routine 07/08/2025 9:24 PM EDT PREPARE RBC Routine 07/08/2025 9:23 PM EDT ABSCESS CULTURE AND GRAM STAIN Routine 07/08/2025 9:06 PM EDT Necrotizing fasciitis (CMS/HCC) POCT ARTERIAL BLOOD GAS GEM UNSOLICITED RESULTS Routine 07/08/2025 8:51 PM EDT UT DEBRIDEMENT, SKIN, SUB-Q TISSUE,=<20 SQ CM 07/08/2025 7:58 PM EDT Necrotizing fasciitis (CMS/HCC) ED HIV 1/2 ANTIBODY/ANTIGEN SCREEN WITH REFLEX TO HIV I/II DIFFERENTIATION STAT 07/08/2025 6:14 PM EDT ED PROTOCOL HIV 1/2 ANTIBODY/ANTIGEN SCREEN W/REFLEX TO HIV 1/2 ANTIBODY DIFFERENTIATION STAT 07/08/2025 6:14 PM EDT LACTATE, VENOUS STAT 07/08/2025 6:14 PM EDT HEPATITIS C ANTIBODY - ED W/REFLEX TO HCV QUANT PCR STAT 07/08/2025 6:14 PM EDT PROTHROMBIN TIME(PT) / INR STAT 07/08/2025 6:14 PM EDT CBC WITH AUTO DIFFERENTIAL STAT 07/08/2025 6:14 PM EDT TYPE AND SCREEN STAT 07/08/2025 6:14 PM EDT C-REACTIVE PROTEIN, PLASMA STAT 07/08/2025 6:14 PM EDT COMPREHENSIVE METABOLIC PANEL, PLASMA STAT 07/08/2025 6:14 PM EDT [facility]ARE, E/M 30-74 MINUTES Routine 07/08/2025 5:58 PM EDT documented in this encounter Results * (ABNORMAL) POCT glucose meter (07/19/2025 12:27 PM EDT) POCT Glucose 197(H) 74 - 99 mg/dL 07/19/2025 5:32 PM EDT [facility] Comment:Accuracy of a glucos e result obtained from a capillary whole blood specimen relies upon adequate, non-compromised capillary blood flow. If the capillary glucose result is not consistent with the patient's clinical signs and symptoms, glucose testing should be repeated with either an arterial or venous sample on the glucometer or sent to the main labortory for testing. Comment 07/19/2025 5:32 PM EDT [facility] Agriculture Teacher ID Laura Baez [phone] 5:32 PM EDT [facility]ALTH[facility]ARE [facility] Device ID [id number] 07/19/2025 5:32 PM EDT [facility]ALTH[facility]ARE [facility] Specimen Type POC Capillary 07/19/2025 5:32 PM EDT [facility] Blood Capillary blood specimen / Unknown 07/19/2025 12:27 PM EDT 07/19/2025 5:32 PM EDT us Anne Franco MD LAB POINT OF CARE TEST DOCKED DEVICE UNSOLICITED RESULTS Final Result [facility] [address] [place] [address] * Phosphorus (07/19/2025 4:28 AM EDT) Phosphorus, Plasma 3.6 2.5 - 4.5 mg/dL 07/19/2025 5:03 AM EDT [facility] Blood Venous blood specimen / Unknown Venipuncture / Unknown 07/19/2025 4:28 AM EDT 07/19/2025 4:35 AM EDT us Anne Franco MD LAB BLOOD ORDERABLES Sarah l Result [facility] [address] [place] [address] * (ABNORMAL) Magnesium (07/19/2025 4:28 AM EDT) Magnesium, Plasma 1.8(L) 1.9 - 2.4 mg/dL 07/19/2025 5:03 AM EDT [facility] Blood Venous blood specimen / Unknown Venipuncture / Unknown 07/19/2025 4:28 AM EDT 07/19/2025 4:35 AM EDT us Anne Franco MD LAB BLOOD ORDERABLES Sarah sabrina Result [facility] [address] [place] [address] * (ABNORMAL) CBC W/O Differential (07/19/2025 4:28 AM EDT) WBC Count 18.39(H) 3.70 - 10.30 10*3/uL LAB HEMATOLOGY METHOD 07/19/2025 4:51 AM EDT [facility] RBC Count 3.50(L) 3.90 - 5.20 10*6/uL LAB HEMATOLOGY METHOD 07/19/2025 4:51 AM EDT [facility] HGB 9.6(L) 11.2 - 15.7 g/dL LAB HEMATOLOGY METHOD 07/19/2025 4:51 AM EDT [facility] HCT 30.7(L) 34.0 - 45.0 % LAB HEMATOLOGY METHOD 07/19/2025 4:51 AM EDT [facility] Platelet Count 627(H) 155 - 369 10*3/uL LAB HEMATOLOGY METHOD 07/19/2025 4:51 AM EDT [facility] MCV 88 79 - 98 fL LAB HEMATOLOGY METHOD 07/19/2025 4:51 AM EDT [facility] MCH 27.4 26.0 - 32.0 pg LAB HEMATOLOGY METHOD 07/19/2025 4:51 AM EDT [facility] MCHC 31.3 30.7 - 35.5 g/dL LAB HEMATOLOGY METHOD 07/19/2025 4:51 AM EDT [facility] RDW 18.2(H) 11.5 - 14.5 % LAB HEMATOLOGY METHOD 07/19/2025 4:51 AM EDT [facility] MPV 10.2 8.8 - 12.5 fL LAB HEMATOLOGY METHOD 07/19/2025 4:51 AM EDT [facility] nRBC 0.1(H) <=0.0 per 100 WBCs LAB HEMATOLOGY METHOD 07/19/2025 4:51 AM EDT [facility] Blood Venous blood specimen / Unknown Venipuncture / Unknown 07/19/2025 4:28 AM EDT 07/19/2025 4:36 AM EDT us Anne Franco MD LAB BLOOD ORDERABLES Sarah sabrina Result [facility] [address] [place] [address] * (ABNORMAL) Basic metabolic panel (07/19/2025 4:28 AM EDT) Glucose, Plasma 153(H) 74 - 99 mg/dL 07/19/2025 5:03 AM EDT [facility] BUN, Plasma 14 7 - 21 mg/dL 07/19/2025 5:03 AM EDT [facility] Creatinine, Plasma 0.73 0.60 - 1.10 mg/dL 07/19/2025 5:03 AM EDT [facility] BUN/Creatinine Ratio 19 07/19/2025 5:03 AM EDT [facility] Sodium, Plasma 137 136 - 145 mmol/L 07/19/2025 5:03 AM EDT [facility] Potassium, Plasma 4.3 3.6 - 4.9 mmol/L 07/19/2025 5:03 AM EDT [facility] Chloride, Plasma 97 97 - 107 mmol/L 07/19/2025 5:03 AM EDT [facility] CO2, Plasma 28 22 - 29 mmol/L 07/19/2025 5:03 AM EDT [facility] Anion Gap 12 6 - 16 mmol/L 07/19/2025 5:03 AM EDT [facility] Total Calcium, Plasma 9.0 8.9 - 10.2 mg/dL 07/19/2025 5:03 AM EDT [facility] eGFRcr 101.0 mL/min/1.7 3m*2 07/19/2025 5:03 AM EDT [facility] Comment:Reported eGFRcr in m L/min/1.73m2 is based the CKD-EPI 2020 equation that does not use a race coefficient. Blood Venous blood specimen / Unknown Venipuncture / Unknown 07/19/2025 4:28 AM EDT 07/19/2025 4:35 AM EDT Anne Franco MD LAB BLOOD ORDERABLES Sarah l Result Performing Organization Address City/[facility]/ZIP Co de Phone Number [facility] [address] [place] [address] * (ABNORMAL) POCT glucose meter (07/18/2025 8:33 PM EDT) POCT Glucose 141(H) 74 - 99 mg/dL 07/18/2025 8:36 PM EDT [facility] Comment:Accuracy of a glucos e result obtained from a capillary whole blood specimen relies upon adequate, non-compromised capillary blood flow. If the capillary glucose result is not consistent with the patient's clinical signs and symptoms, glucose testing should be repeated with either an arterial or venous sample on the glucometer or sent to the main labortory for testing. Comment 07/18/2025 8:36 PM EDT [facility] Agriculture Teacher ID Zach Martinez 8:36 PM EDT [facility] Device ID [id number] 07/18/2025 8:36 PM EDT [facility] Specimen Type POC Capillary 07/18/2025 8:36 PM EDT [facility] Blood Capillary blood specimen / Unknown 07/18/2025 8:33 PM EDT 07/18/2025 8:36 PM EDT Anne Franco MD LAB POINT OF CARE TEST DOCKED DEVICE UNSOLICITED RESULTS Final Result Performing Organization Address City/[facility]/ZIP Co de Phone Number [facility] [address] [place] [address] * (ABNORMAL) POCT glucose meter (07/18/2025 6:07 PM EDT) POCT Glucose 222(H) 74 - 99 mg/dL 07/18/2025 6:08 PM EDT [facility] Comment:Accuracy of a glucos e result obtained from a capillary whole blood specimen relies upon adequate, non-compromised capillary blood flow. If the capillary glucose result is not consistent with the patient's clinical signs and symptoms, glucose testing should be repeated with either an arterial or venous sample on the glucometer or sent to the main labortory for testing. Comment 07/18/2025 6:08 PM EDT [facility] Agriculture Teacher ID Monique Jacques 6:08 PM EDT [facility] Device ID [id number] 07/18/2025 6:08 PM EDT [facility] Specimen Type POC Capillary 07/18/2025 6:08 PM EDT [facility] Blood Capillary blood specimen / Unknown 07/18/2025 6:07 PM EDT 07/18/2025 6:08 PM EDT us Anne Franco MD LAB POINT OF CARE TEST DOCKED DEVICE UNSOLICITED RESULTS Final Result Performing Organization Address City/State/[facility] Co de Phone Number [facility] [address] [place] [address] * (ABNORMAL) POCT glucose meter (07/18/2025 12:36 PM EDT) [facility] POCT Glucose 151(H) 74 - 99 mg/dL 07/18/2025 12:38 PM EDT [facility] Comment:Accuracy of a glucos e result obtained from a capillary whole blood specimen relies upon adequate, non-compromised capillary blood flow. If the capillary glucose result is not consistent with the patient's clinical signs and symptoms, glucose testing should be repeated with either an arterial or venous sample on the glucometer or sent to the main labortory for testing. Comment 07/18/2025 12:38 PM EDT [facility] Agriculture Teacher ID Laura Baez 025 12:38 PM EDT [facility] LAB Device ID [id number] 07/18/2025 12:38 PM EDT [facility] Specimen Type POC Capillary 07/18/2025 12:38 PM EDT [facility] Blood Capillary blood specimen / Unknown 07/18/2025 12:36 PM EDT 07/18/2025 12:38 PM EDT us Anne Franco MD LAB POINT OF CARE TEST DOCKED DEVICE UNSOLICITED RESULTS Final Result Performing Organization Address City/[facility] Co de Phone Number [facility] [address] [place] [address] * (ABNORMAL) POCT glucose meter (07/18/2025 8:39 AM EDT) POCT Glucose 149(H) 74 - 99 mg/dL 07/18/2025 8:41 AM EDT [facility] Comment:Accuracy of a glucos e result obtained from a capillary whole blood specimen relies upon adequate, non-compromised capillary blood flow. If the capillary glucose result is not consistent with the patient's clinical signs and symptoms, glucose testing should be repeated with either an arterial or venous sample on the glucometer or sent to the main labortory for testing. Comment 07/18/2025 8:41 AM EDT [facility]ARE [facility] Agriculture Teacher ID Laura Baez 025 8:41 AM EDT HEALTHCARE LAB Device ID [id number] 07/18/2025 8:41 AM EDT [facility]ALTH[facility]ARE [facility] Specimen Type POC Capillary 07/18/2025 8:41 AM EDT [facility] Blood Capillary blood specimen / Unknown 07/18/2025 8:39 AM EDT 07/18/2025 8:41 AM EDT Anne Franco MD LAB POINT OF CARE TEST DOCKED DEVICE UNSOLICITED RESULTS Final Result Performing Organization Address City/[facility] Co de Phone Number [facility] [address] [place] [address] * (ABNORMAL) Basic metabolic panel (07/18/2025 6:03 AM EDT) Glucose, Plasma 163(H) 74 - 99 mg/dL 07/18/2025 6:45 AM EDT [facility] BUN, Plasma 11 7 - 21 mg/dL 07/18/2025 6:45 AM EDT [facility] Creatinine, Plasma 0.65 0.60 - 1.10 mg/dL 07/18/2025 6:45 AM EDT [facility] BUN/Creatinine Ratio 17 07/18/2025 6:45 AM EDT [facility] Sodium, Plasma 138 136 - 145 mmol/L 07/18/2025 6:45 AM EDT [facility] Potassium, Plasma 3.8 3.6 - 4.9 mmol/L 07/18/2025 6:45 AM EDT [facility] Chloride, Plasma 99 97 - 107 mmol/L 07/18/2025 6:45 AM EDT [facility] CO2, Plasma 29 22 - 29 mmol/L 07/18/2025 6:45 AM EDT [facility] Anion Gap 10 6 - 16 mmol/L 07/18/2025 6:45 AM EDT [facility] Total Calcium, Plasma 8.5(L) 8.9 - 10.2 mg/dL 07/18/2025 6:45 AM EDT [facility] eGFRcr 108.1 mL/min/1.7 3m*2 07/18/2025 6:45 AM EDT [facility] Comment:Reported eGFRcr in m L/min/1.73m2 is based the CKD-EPI 2020 equation that does not use a race coefficient. Blood Venous blood specimen / Unknown Venipuncture / Unknown 07/18/2025 6:03 AM EDT 07/18/2025 6:12 AM EDT us Anne Franco MD LAB BLOOD ORDERABLES Sarah bennett Result [facility] [address] [place] [address] * (ABNORMAL) CBC W/O Differential (07/18/2025 6:03 AM EDT) WBC Count 16.76(H) 3.70 - 10.30 10*3/uL LAB HEMATOLOGY METHOD 07/18/2025 6:25 AM EDT [facility] RBC Count 3.25(L) 3.90 - 5.20 10*6/uL LAB HEMATOLOGY METHOD 07/18/2025 6:25 AM EDT [facility] HGB 9.1(L) 11.2 - 15.7 g/dL LAB HEMATOLOGY METHOD 07/18/2025 6:25 AM EDT [facility] HCT 28.8(L) 34.0 - 45.0 % LAB HEMATOLOGY METHOD 07/18/2025 6:25 AM EDT [facility] Platelet Count 523(H) 155 - 369 10*3/uL LAB HEMATOLOGY METHOD 07/18/2025 6:25 AM EDT [facility] MCV 89 79 - 98 fL LAB HEMATOLOGY METHOD 07/18/2025 6:25 AM EDT [facility] MCH 28.0 26.0 - 32.0 pg LAB HEMATOLOGY METHOD 07/18/2025 6:25 AM EDT [facility] MCHC 31.6 30.7 - 35.5 g/dL LAB HEMATOLOGY METHOD 07/18/2025 6:25 AM EDT [facility] RDW 17.6(H) 11.5 - 14.5 % LAB HEMATOLOGY METHOD 07/18/2025 6:25 AM EDT [facility] MPV 10.3 8.8 - 12.5 fL LAB HEMATOLOGY METHOD 07/18/2025 6:25 AM EDT [facility] nRBC 0.0 <=0.0 per 100 WBCs LAB HEMATOLOGY METHOD 07/18/2025 6:25 AM EDT [facility] Blood Venous blood specimen / Unknown Venipuncture / Unknown 07/18/2025 6:03 AM EDT 07/18/2025 6:12 AM EDT us Anne Franco MD LAB BLOOD ORDERABLES Sarah l Result [facility] [address] [place] [address] * (ABNORMAL) POCT glucose meter (07/17/2025 10:33 PM EDT) [facility] POCT Glucose 171(H) 74 - 99 mg/dL 07/17/2025 10:35 PM EDT [facility] Comment:Accuracy of a glucos e result obtained from a capillary whole blood specimen relies upon adequate, non-compromised capillary blood flow. If the capillary glucose result is not consistent with the patient's clinical signs and symptoms, glucose testing should be repeated with either an arterial or venous sample on the glucometer or sent to the main labortory for testing. Comment 07/17/2025 10:35 PM EDT [facility] Agriculture Teacher ID Tha, 07/17/2025 10:35 PM EDT [facility] Device ID [id number] 07/17/2025 10:35 PM EDT [facility] Specimen Type POC Capillary 07/17/2025 10:35 PM EDT [facility] Blood Capillary blood specimen / Unknown 07/17/2025 10:33 PM EDT 07/17/2025 10:35 PM EDT Anne Franco MD LAB POINT OF CARE TEST DOCKED DEVICE UNSOLICITED RESULTS Final Result Performing Organization Address City/State/[facility] Co de Phone Number [facility] [address] [place] [address] * PERIPHERAL IV (SMARTFORM LINK) (07/17/2025 5:14 PM EDT) Narrative Arturo Mancilla RN - 07/17/2025 5:14 PM EDT Arturo Mancilla RN 07/17/2025 5:14 PM Insert peripheral IV Performed by: Arturo Mancilla RN Authorized by: Anne Franco MD Hand hygiene: Hand hygiene performed prior to insertion Inserted using aseptic techniques: Yes Preparation: Skin prepped with chg Orientation: Right Location: Forearm Catheter placed: Peripheral IV Catheter size: 20g/1.88in Line Technique: Ultrasound Guidance Number of attempts: 1 IV flushes: Without difficulty and positive blood return noted Patient tolerance: Patient tolerated the procedure well, age appropriate response and there were no complications IV site covered with: Transparent semipermeable dressing Anne Franco MD IV THERAPY ORDERABLES Fin al Result * (ABNORMAL) POCT glucose meter (07/17/2025 5:10 PM EDT) POCT Glucose 115(H) 74 - 99 mg/dL 07/17/2025 5:12 PM EDT [facility] Comment:Accuracy of a glucos e result obtained from a capillary whole blood specimen relies upon adequate, non-compromised capillary blood flow. If the capillary glucose result is not consistent with the patient's clinical signs and symptoms, glucose testing should be repeated with either an arterial or venous sample on the glucometer or sent to the main labortory for testing. Comment 07/17/2025 5:12 PM EDT [facility] Agriculture Teacher ID Monique Jacques 5:12 PM EDT [facility] Device ID [id number] 07/17/2025 5:12 PM EDT [facility] Specimen Type POC Capillary 07/17/2025 5:12 PM EDT [facility] Blood Capillary blood specimen / Unknown 07/17/2025 5:10 PM EDT 07/17/2025 5:12 PM EDT us Anne Franco MD LAB POINT OF CARE TEST DOCKED DEVICE UNSOLICITED RESULTS Final Result Performing Organization Address City/[facility] Co de Phone Number [facility] [address] [place] [address] * (ABNORMAL) POCT glucose meter (07/17/2025 12:06 PM EDT) POCT Glucose 211(H) 74 - 99 mg/dL 07/17/2025 12:07 PM EDT [facility] Comment:Accuracy of a glucos e result obtained from a capillary whole blood specimen relies upon adequate, non-compromised capillary blood flow. If the capillary glucose result is not consistent with the patient's clinical signs and symptoms, glucose testing should be repeated with either an arterial or venous sample on the glucometer or sent to the main labortory for testing. Comment 07/17/2025 12:07 PM EDT [facility] Agriculture Teacher ID Josi Ann 12:07 PM EDT [facility] Device ID [id number] 07/17/2025 12:07 PM EDT [facility] Specimen Type POC Capillary 07/17/2025 12:07 PM EDT [facility] Blood Capillary blood specimen / Unknown 07/17/2025 12:06 PM EDT 07/17/2025 12:07 PM EDT us Anne Franco MD LAB POINT OF CARE TEST DOCKED DEVICE UNSOLICITED RESULTS Final Result Performing Organization Address City/[facility]/ZIP Co de Phone Number [facility] [address] [place] [address] * US Extremity Limited MSK or Soft Tissue Right; Thigh; Medial (07/17/2025 11:01 AM EDT) Anatomical Region Laterality Modality Upper Extremities, Lower Extremities Ultrasound Impressions 07/17/2025 12:38 PM EDT At the site of clinical concern there is mild soft tissue induration. No discrete fluid collection. CRITICAL RESULT: No. COMMUNICATION: Per this written report. Drafted by Davide Allan MD on 07/17/2025 12:37 PM Final report signed by Davide Allan MD on 07/17/2025 12:38 PM Narrative 07/17/2025 12:38 PM EDT CLINICAL INDICATION: Assess Medial Wound for abscess/soft tissue infection TECHNIQUE: Multiplanar johnson scale survey sonographic imaging of the medial thigh was performed. COMPARISON: None. FINDINGS: At the site of clinical concern there is mild soft tissue induration. No discrete fluid collection. Procedure Note Davide Allan MD - 07/17/2025 CLINICAL INDICATION: Assess Medial Wound for abscess/soft tissue infection TECHNIQUE: Multiplanar johnson scale survey sonographic imaging of the medial thigh wasperformed. COMPARISON: None. FINDINGS: At the site of clinical concern there is mild soft tissue induration. Nodiscrete fluid collection. IMPRESSION: At the site of clinical concern there is mild soft tissue induration. Nodiscrete fluid collection. CRITICAL RESULT: No. COMMUNICATION: Per this written report. Drafted by Davide Allan MD on 07/17/2025 12:37 PM Final report signed by Davide Allan MD on 07/17/2025 12:38 PM us Inder[facility] IMG US PROCEDURES Final Result * Methicillin Resistant Staphylococcus aureus (MRSA) by PCR (07/17/2025 10:14 AM EDT) Methicillin Resistant Staphylococcus aureus (MRSA) by PCR Not Detected Not Detected 07/17/2025 12:11 PM EDT [facility] Swab Both anterior nares / Unknown Non-blood Collection / Unknown 07/17/2025 10:14 AM EDT 07/17/2025 10:33 AM EDT Narrative [facility] - 07/17/2025 12:11 PM EDT This test is FDA approved for use with nares swab specimens using the eSwabs. This test is used for clinical purposes. It should not be regarded as investigational or for research. This laboratory is certified under the Clinical Laboratory improvement Amendments of 1988 (CLIA-88 as qualified to perform high complexity clinical laboratory testing. us Inder[facility]it [facility] LAB MICROBIOLOGY - GENERAL ORDER LUANNE Final Result Performing Organization Address City/[facility]/ZIP Co de Phone Number [facility] [address] [place] [address] * (ABNORMAL) POCT glucose meter (07/17/2025 9:35 AM EDT) POCT Glucose 139(H) 74 - 99 mg/dL 07/17/2025 9:37 AM EDT [facility] Comment:Accuracy of a glucos e result obtained from a capillary whole blood specimen relies upon adequate, non-compromised capillary blood flow. If the capillary glucose result is not consistent with the patient's clinical signs and symptoms, glucose testing should be repeated with either an arterial or venous sample on the glucometer or sent to the main labortory for testing. Comment 07/17/2025 9:37 AM EDT [facility] Agriculture Teacher ID Josi Ann 9:37 AM EDT [facility]ALTH[facility]ARE LAB Device ID [id number] 07/17/2025 9:37 AM EDT [facility] Specimen Type POC Capillary 07/17/2025 9:37 AM EDT [facility] Blood Capillary blood specimen / Unknown 07/17/2025 9:35 AM EDT 07/17/2025 9:37 AM EDT us Anne Franco MD LAB POINT OF CARE TEST DOCKED DEVICE UNSOLICITED RESULTS Final Result Performing Organization Address City/[facility] Co de Phone Number [facility] [address] [place] [address] * (ABNORMAL) Basic metabolic panel (07/17/2025 5:20 AM EDT) Glucose, Plasma 140(H) 74 - 99 mg/dL 07/17/2025 5:56 AM EDT [facility] BUN, Plasma 8 7 - 21 mg/dL 07/17/2025 5:56 AM EDT [facility] Creatinine, Plasma 0.59(L) 0.60 - 1.10 mg/dL 07/17/2025 5:56 AM EDT [facility] BUN/Creatinine Ratio 14 07/17/2025 5:56 AM EDT [facility] Sodium, Plasma 139 136 - 145 mmol/L 07/17/2025 5:56 AM EDT [facility] Potassium, Plasma 3.8 3.6 - 4.9 mmol/L 07/17/2025 5:56 AM EDT [facility] Chloride, Plasma 97 97 - 107 mmol/L 07/17/2025 5:56 AM EDT [facility] CO2, Plasma 31(H) 22 - 29 mmol/L 07/17/2025 5:56 AM EDT [facility] Anion Gap 11 6 - 16 mmol/L 07/17/2025 5:56 AM EDT [facility] Total Calcium, Plasma 8.6(L) 8.9 - 10.2 mg/dL 07/17/2025 5:56 AM EDT [facility] eGFRcr 110.6 mL/min/1.7 3m*2 07/17/2025 5:56 AM EDT [facility] Comment:Reported eGFRcr in m L/min/1.73m2 is based the CKD-EPI 2020 equation that does not use a race coefficient. Blood Venous blood specimen / Unknown Venipuncture / Unknown 07/17/2025 5:20 AM EDT 07/17/2025 5:27 AM EDT us Anne Franco MD LAB BLOOD ORDERABLES Sarah l Result [facility] [address] [place] [address] * Phosphorus, Plasma (07/17/2025 5:20 AM EDT) Phosphorus, Plasma 3.0 2.5 - 4.5 mg/dL 07/17/2025 5:56 AM EDT [facility] Blood Venous blood specimen / Unknown Venipuncture / Unknown 07/17/2025 5:20 AM EDT 07/17/2025 5:27 AM EDT us Anne Franco MD LAB BLOOD ORDERABLES Sarah l Result Performing Organization Address [facility]/ZIP Co de Phone Number [facility] [address] [place] [address] * (ABNORMAL) Magnesium, Plasma (07/17/2025 5:20 AM EDT) [facility] Magnesium, Plasma 1.8(L) 1.9 - 2.4 mg/dL 07/17/2025 5:56 AM EDT [facility] Blood Venous blood specimen / Unknown Venipuncture / Unknown 07/17/2025 5:20 AM EDT 07/17/2025 5:27 AM EDT Anne Franco MD LAB BLOOD ORDERABLES Sarah l Result Performing Organization Address [facility] Co de Phone Number [facility] [address] [place] [address] * (ABNORMAL) CBC W/O Differential (07/17/2025 5:20 AM EDT) [facility] WBC Count 22.29(H) 3.70 - 10.30 10*3/uL LAB HEMATOLOGY METHOD 07/17/2025 5:37 AM EDT [facility] RBC Count 3.36(L) 3.90 - 5.20 10*6/uL LAB HEMATOLOGY METHOD 07/17/2025 5:37 AM EDT [facility] HGB 9.2(L) 11.2 - 15.7 g/dL LAB HEMATOLOGY METHOD 07/17/2025 5:37 AM EDT [facility] HCT 29.4(L) 34.0 - 45.0 % LAB HEMATOLOGY METHOD 07/17/2025 5:37 AM EDT [facility] Platelet Count 484(H) 155 - 369 10*3/uL LAB HEMATOLOGY METHOD 07/17/2025 5:37 AM EDT [facility] MCV 88 79 - 98 fL LAB HEMATOLOGY METHOD 07/17/2025 5:37 AM EDT [facility] MCH 27.4 26.0 - 32.0 pg LAB HEMATOLOGY METHOD 07/17/2025 5:37 AM EDT [facility] MCHC 31.3 30.7 - 35.5 g/dL LAB HEMATOLOGY METHOD 07/17/2025 5:37 AM EDT [facility] RDW 17.3(H) 11.5 - 14.5 % LAB HEMATOLOGY METHOD 07/17/2025 5:37 AM EDT [facility] MPV 10.4 8.8 - 12.5 fL LAB HEMATOLOGY METHOD 07/17/2025 5:37 AM EDT [facility] nRBC 0.1(H) <=0.0 per 100 WBCs LAB HEMATOLOGY METHOD 07/17/2025 5:37 AM EDT [facility] Blood Venous blood specimen / Unknown Venipuncture / Unknown 07/17/2025 5:20 AM EDT 07/17/2025 5:27 AM EDT Anne Franco MD LAB BLOOD ORDERABLES Sarah bennett Result [facility] [address] [place] [address] * (ABNORMAL) POCT glucose meter (07/16/2025 8:24 PM EDT) POCT Glucose 162(H) 74 - 99 mg/dL 07/16/2025 8:26 PM EDT [facility] Comment:Accuracy of a glucos e result obtained from a capillary whole blood specimen relies upon adequate, non-compromised capillary blood flow. If the capillary glucose result is not consistent with the patient's clinical signs and symptoms, glucose testing should be repeated with either an arterial or venous sample on the glucometer or sent to the main labortory for testing. Comment 07/16/2025 8:26 PM EDT [facility]ALTH[facility]ARE [facility] Agriculture Teacher ID Lacie Marcelo 07/16/20 8:26 PM EDT HEALTHCARE LAB Device ID [id number] 07/16/2025 8:26 PM EDT [facility]ALTH[facility] Specimen Type POC Capillary 07/16/2025 8:26 PM EDT [facility] Blood Capillary blood specimen / Unknown 07/16/2025 8:24 PM EDT 07/16/2025 8:26 PM EDT Anne Franco MD LAB POINT OF CARE TEST DOCKED DEVICE UNSOLICITED RESULTS Final Result Performing Organization Address City/[facility] Co de Phone Number [facility] [address] [place] [address] * (ABNORMAL) POCT glucose meter (07/16/2025 5:34 PM EDT) POCT Glucose 190(H) 74 - 99 mg/dL 07/16/2025 5:36 PM EDT [facility] Comment:Accuracy of a glucos e result obtained from a capillary whole blood specimen relies upon adequate, non-compromised capillary blood flow. If the capillary glucose result is not consistent with the patient's clinical signs and symptoms, glucose testing should be repeated with either an arterial or venous sample on the glucometer or sent to the main labortory for testing. Comment 07/16/2025 5:36 PM EDT [facility] Agriculture Teacher ID Diego Munroe 07/16/20 25 5:36 PM EDT [facility] Device ID [id number] 07/16/2025 5:36 PM EDT [facility] Specimen Type POC Capillary 07/16/2025 5:36 PM EDT [facility] Blood Capillary blood specimen / Unknown 07/16/2025 5:34 PM EDT 07/16/2025 5:36 PM EDT Anne Franco MD LAB POINT OF CARE TEST DOCKED DEVICE UNSOLICITED RESULTS Final Result Performing Organization Address City/[facility]/ZIP Co de Phone Number [facility] [address] [place] [address] * (ABNORMAL) POCT glucose meter (07/16/2025 12:06 PM EDT) POCT Glucose 150(H) 74 - 99 mg/dL 07/16/2025 12:08 PM EDT [facility] Comment:Accuracy of a glucos e result obtained from a capillary whole blood specimen relies upon adequate, non-compromised capillary blood flow. If the capillary glucose result is not consistent with the patient's clinical signs and symptoms, glucose testing should be repeated with either an arterial or venous sample on the glucometer or sent to the main labortory for testing. Comment 07/16/2025 12:08 PM EDT [facility] Agriculture Teacher ID Diego Munroe 07/16/20 25 12:08 PM EDT HEALTH[facility]ARE LAB Device ID [id number] 07/16/2025 12:08 PM EDT [facility] Specimen Type POC Capillary 07/16/2025 12:08 PM EDT [facility] Blood Capillary blood specimen / Unknown 07/16/2025 12:06 PM EDT 07/16/2025 12:08 PM EDT us Anne Franco MD LAB POINT OF CARE TEST DOCKED DEVICE UNSOLICITED RESULTS Final Result Performing Organization Address City/State/[facility] de Phone Number HEALTHCARE LAB [address] [place] [id number] * XR Chest 1 View (07/16/2025 11:25 AM EDT) Anatomical Region Laterality Modality Chest Digital Radiogra phy Impressions 07/16/2025 12:53 PM EDT Removal right IJ central venous catheter. Improving volume status. No pneumothorax. CRITICAL RESULT: No. COMMUNICATION: Per this written report. Drafted by Moy Khoury MD on 07/16/2025 12:52 PM Final report signed by Moy Khoury MD on 07/16/2025 12:53 PM Narrative 07/16/2025 12:53 PM EDT CLINICAL INDICATION: oxygen requuirements TECHNIQUE: XR CHEST 1 VIEW COMPARISON: July 12, 2025. FINDINGS: Interval removal of the right IJ central venous catheter. Improving pulmonary vascular congestion with residual interstitial edema. Enlarged cardiomediastinal silhouette. Procedure Note Moy Khoury MD - 07/16/2025 CLINICAL INDICATION: oxygen requuirements TECHNIQUE: XR CHEST 1 VIEW COMPARISON: July 12, 2025. FINDINGS: Interval removal of the right IJ central venous catheter. Improvingpulmonary vascular congestion with residual interstitial edema. Enlargedcardiomediastinal silhouette. IMPRESSION: Removal right IJ central venous catheter. Improving volume status. Nopneumothorax. CRITICAL RESULT: No. COMMUNICATION: Per this written report. Drafted by Moy Khoury MD on 07/16/2025 12:52 PM Final report signed by Moy Khoury MD on 07/16/2025 12:53 PM us Anne Franco MD IMG XR PROCEDURES Final R esult * VAS US Venous Duplex Lower Extremity Bilateral (07/16/2025 9:03 AM EDT) Anatomical Region Laterality Modality Lower Extremities Bilateral Ultrasound Impressions 07/16/2025 9:43 AM EDT Right: Normal, limited study; no evidence of acute DVT is identified in the visualized vessels. Left: Normal, limited study; no evidence of acute DVT is identified in the visualized vessels. COMMUNICATION: Per this written report. Preliminary report signed by Jessa Kendrick RVT on 07/16/2025 9:20 AM By electronically signing this report, I, the attending physician, attest that I have personally reviewed the images/data for the above examination(s) and I agree with the final edited report. Drafted by eJssa Kendrick RVT on 07/16/2025 9:16 AM Final report signed by Alejandrina Ham MD on 07/16/2025 9:43 AM Narrative 07/16/2025 9:43 AM EDT CLINICAL INDICATION: SOB +/- PE TECHNIQUE: Non-invasive, real time duplex exam of the lower extremity venous circulation with Doppler ultrasonic waveform and spectral analysis was performed. COMPARISON: None. FINDINGS: Technically difficult, limited study due to wound vac placement and vessel depth. Right: Venous duplex demonstrates compressible popliteal, posterior tibial and peroneal veins. Unable to visualize the common femoral and femoral veins. The venous spectral analysis demonstrates a spontaneous, phasic, augmentable and nonpulsatile flow signal. Left: Venous duplex demonstrates compressible common femoral, femoral, popliteal, and posterior tibial veins. Unable to visualize the peroneal veins. The venous spectral analysis demonstrates a spontaneous, phasic, augmentable and nonpulsatile flow signal. Procedure Note Alejandrina Ham MD - 07/16/2025 CLINICAL INDICATION: SOB +/- PE TECHNIQUE: Non-invasive, real time duplex exam of the lower extremity venouscirculation with Doppler ultrasonic waveform and spectral analysis wasperformed. COMPARISON: None. FINDINGS: Technically difficult, limited study due to wound vac placementand vessel depth. Right: Venous duplex demonstrates compressible popliteal, posterior tibialand peroneal veins. Unable to visualize the common femoral and femoralveins. The venous spectral analysis demonstrates a spontaneous, phasic,augmentable and nonpulsatile flow signal. Left: Venous duplex demonstrates compressible common femoral, femoral,popliteal, and posterior tibial veins. Unable to visualize the peronealveins. The venous spectral analysis demonstrates a spontaneous, phasic,augmentable and nonpulsatile flow signal. IMPRESSION: Right: Normal, limited study; no evidence of acute DVT is identified inthe visualized vessels. Left: Normal, limited study; no evidence of acute DVT is identified in thevisualized vessels. COMMUNICATION: Per this written report. Preliminary report signed by Jessa Kendrick RVT on 07/16/2025 9:20 AM By electronically signing this report, I, the attending physician, attestthat I have personally reviewed the images/data for the aboveexamination(s) and I agree with the final edited report. Drafted by Jessa Kendrick RVT on 07/16/2025 9:16 AM Final report signed by Alejandrina Ham MD on 07/16/2025 9:43 AM us Anne Franco MD CV VASCULAR PROCEDURES Fi nal Result * (ABNORMAL) POCT glucose meter (07/16/2025 8:22 AM EDT) POCT Glucose 172(H) 74 - 99 mg/dL 07/16/2025 8:24 AM EDT [facility] Comment:Accuracy of a glucos e result obtained from a capillary whole blood specimen relies upon adequate, non-compromised capillary blood flow. If the capillary glucose result is not consistent with the patient's clinical signs and symptoms, glucose testing should be repeated with either an arterial or venous sample on the glucometer or sent to the main labortory for testing. Comment 07/16/2025 8:24 AM EDT [facility] Agriculture Teacher ID Diego Munroe 07/16/20 8:24 AM EDT [facility] Device ID [id number] 07/16/2025 8:24 AM EDT [facility] Specimen Type POC Capillary 07/16/2025 8:24 AM EDT [facility] Blood Capillary blood specimen / Unknown 07/16/2025 8:22 AM EDT 07/16/2025 8:24 AM EDT us nAne Franco MD LAB POINT OF CARE TEST DOCKED DEVICE UNSOLICITED RESULTS Final Result [facility] [address] [place] [address] * Phosphorus (07/16/2025 5:25 AM EDT) Pathologist [facility] Phosphorus, Plasma 2.8 2.5 - 4.5 mg/dL 07/16/2025 7:12 AM EDT [facility] Blood Venous blood specimen / Unknown Venipuncture / Unknown 07/16/2025 5:25 AM EDT 07/16/2025 5:33 AM EDT us Anne Franco MD LAB BLOOD ORDERABLES Sarah l Result Performing Organization Address City/[facility]/[place] [address] * (ABNORMAL) Magnesium (07/16/2025 5:25 AM EDT) Magnesium, Plasma 1.8(L) 1.9 - 2.4 mg/dL 07/16/2025 7:12 AM EDT [facility] Blood Venous blood specimen / Unknown Venipuncture / Unknown 07/16/2025 5:25 AM EDT 07/16/2025 5:33 AM EDT us Anne Franco MD LAB BLOOD ORDERABLES Sarah l Result [facility] [address] [place] [address] * (ABNORMAL) Basic metabolic panel (07/16/2025 5:25 AM EDT) Glucose, Plasma 149(H) 74 - 99 mg/dL 07/16/2025 6:01 AM EDT [facility] BUN, Plasma 9 7 - 21 mg/dL 07/16/2025 6:01 AM EDT [facility] Creatinine, Plasma 0.48(L) 0.60 - 1.10 mg/dL 07/16/2025 6:01 AM EDT [facility] BUN/Creatinine Ratio 19 07/16/2025 6:01 AM EDT [facility] Sodium, Plasma 140 136 - 145 mmol/L 07/16/2025 6:01 AM EDT [facility] Potassium, Plasma 3.4(L) 3.6 - 4.9 mmol/L 07/16/2025 6:01 AM EDT [facility] Chloride, Plasma 99 97 - 107 mmol/L 07/16/2025 6:01 AM EDT [facility] CO2, Plasma 31(H) 22 - 29 mmol/L 07/16/2025 6:01 AM EDT [facility] Anion Gap 10 6 - 16 mmol/L 07/16/2025 6:01 AM EDT [facility] Total Calcium, Plasma 8.6(L) 8.9 - 10.2 mg/dL 07/16/2025 6:01 AM EDT [facility] eGFRcr 116.3 mL/min/1.7 3m*2 07/16/2025 6:01 AM EDT [facility] Comment:Reported eGFRcr in m L/min/1.73m2 is based the CKD-EPI 2020 equation that does not use a race coefficient. Blood Venous blood specimen / Unknown Venipuncture / Unknown 07/16/2025 5:25 AM EDT 07/16/2025 5:33 AM EDT us Anne Franco MD LAB BLOOD ORDERABLES Sarah bennett Result [facility] [address] [place] [address] * (ABNORMAL) CBC W/O Differential (07/16/2025 5:25 AM EDT) WBC Count 22.22(H) 3.70 - 10.30 10*3/uL LAB HEMATOLOGY METHOD 07/16/2025 5:41 AM EDT [facility] RBC Count 3.30(L) 3.90 - 5.20 10*6/uL LAB HEMATOLOGY METHOD 07/16/2025 5:41 AM EDT [facility] HGB 8.9(L) 11.2 - 15.7 g/dL LAB HEMATOLOGY METHOD 07/16/2025 5:41 AM EDT [facility] HCT 28.9(L) 34.0 - 45.0 % LAB HEMATOLOGY METHOD 07/16/2025 5:41 AM EDT [facility] Platelet Count 376(H) 155 - 369 10*3/uL LAB HEMATOLOGY METHOD 07/16/2025 5:41 AM EDT [facility] MCV 88 79 - 98 fL LAB HEMATOLOGY METHOD 07/16/2025 5:41 AM EDT [facility] MCH 27.0 26.0 - 32.0 pg LAB HEMATOLOGY METHOD 07/16/2025 5:41 AM EDT [facility] MCHC 30.8 30.7 - 35.5 g/dL LAB HEMATOLOGY METHOD 07/16/2025 5:41 AM EDT [facility] RDW 17.2(H) 11.5 - 14.5 % LAB HEMATOLOGY METHOD 07/16/2025 5:41 AM EDT [facility] MPV 10.3 8.8 - 12.5 fL LAB HEMATOLOGY METHOD 07/16/2025 5:41 AM EDT [facility] nRBC 0.1(H) <=0.0 per 100 WBCs LAB HEMATOLOGY METHOD 07/16/2025 5:41 AM EDT [facility] Blood Venous blood specimen / Unknown Venipuncture / Unknown 07/16/2025 5:25 AM EDT 07/16/2025 5:33 AM EDT us Anne Franco MD LAB BLOOD ORDERABLES Sarah bennett Result [facility] [address] [place] [address] * (ABNORMAL) POCT glucose meter (07/15/2025 9:38 PM EDT) [facility] POCT Glucose 173(H) 74 - 99 mg/dL 07/15/2025 9:39 PM EDT [facility] Comment:Accuracy of a glucos e result obtained from a capillary whole blood specimen relies upon adequate, non-compromised capillary blood flow. If the capillary glucose result is not consistent with the patient's clinical signs and symptoms, glucose testing should be repeated with either an arterial or venous sample on the glucometer or sent to the main labortory for testing. Comment 07/15/2025 9:39 PM EDT [facility] Agriculture Teacher ID Yessenia Ramirez 9:39 PM EDT [facility] Device ID [id number] 07/15/2025 9:39 PM EDT [facility] Specimen Type POC Capillary 07/15/2025 9:39 PM EDT [facility] Blood Capillary blood specimen / Unknown 07/15/2025 9:38 PM EDT 07/15/2025 9:39 PM EDT us Anne Franco MD LAB POINT OF CARE TEST DOCKED DEVICE UNSOLICITED RESULTS Final Result Performing Organization Address City/State/[facility] Co de Phone Number [facility] [address] [place] [address] * (ABNORMAL) POCT glucose meter (07/15/2025 6:03 PM EDT) [facility] POCT Glucose 234(H) 74 - 99 mg/dL 07/15/2025 6:04 PM EDT [facility] Comment:Accuracy of a glucos e result obtained from a capillary whole blood specimen relies upon adequate, non-compromised capillary blood flow. If the capillary glucose result is not consistent with the patient's clinical signs and symptoms, glucose testing should be repeated with either an arterial or venous sample on the glucometer or sent to the main labortory for testing. Comment 07/15/2025 6:04 PM EDT [facility] Agriculture Teacher ID Venessa Amin 07/15/2025 6:04 PM EDT [facility] Device ID [id number] 07/15/2025 6:04 PM EDT [facility] Specimen Type POC Capillary 07/15/2025 6:04 PM EDT [facility] Blood Capillary blood specimen / Unknown 07/15/2025 6:03 PM EDT 07/15/2025 6:04 PM EDT Anne Franco MD LAB POINT OF CARE TEST DOCKED DEVICE UNSOLICITED RESULTS Final Result Performing Organization Address City/[facility] Co de Phone Number [facility] [address] [place] [address] * (ABNORMAL) POCT glucose meter (07/15/2025 12:38 PM EDT) POCT Glucose 153(H) 74 - 99 mg/dL 07/15/2025 12:40 PM EDT [facility] Comment:Accuracy of a glucos e result obtained from a capillary whole blood specimen relies upon adequate, non-compromised capillary blood flow. If the capillary glucose result is not consistent with the patient's clinical signs and symptoms, glucose testing should be repeated with either an arterial or venous sample on the glucometer or sent to the main labortory for testing. Comment 07/15/2025 12:40 PM EDT [facility] Agriculture Teacher ID Brennan, Venessa 07/15/2025 12:40 PM EDT [facility] Device ID [id number] 07/15/2025 12:40 PM EDT [facility] Specimen Type POC Capillary 07/15/2025 12:40 PM EDT [facility] Blood Capillary blood specimen / Unknown 07/15/2025 12:38 PM EDT 07/15/2025 12:40 PM EDT Anne Franco MD LAB POINT OF CARE TEST DOCKED DEVICE UNSOLICITED RESULTS Final Result Performing Organization Address City/[facility]/ZIP Co de Phone Number [facility] [address] [place] [address] * (ABNORMAL) POCT glucose meter (07/15/2025 8:38 AM EDT) POCT Glucose 132(H) 74 - 99 mg/dL 07/15/2025 8:39 AM EDT [facility] Comment:Accuracy of a glucos e result obtained from a capillary whole blood specimen relies upon adequate, non-compromised capillary blood flow. If the capillary glucose result is not consistent with the patient's clinical signs and symptoms, glucose testing should be repeated with either an arterial or venous sample on the glucometer or sent to the main labortory for testing. Comment 07/15/2025 8:39 AM EDT [facility] Agriculture Teacher ID Venessa Amin 07/15/2025 8:39 AM EDT [facility] Device ID [id number] 07/15/2025 8:39 AM EDT [facility] Specimen Type POC Capillary 07/15/2025 8:39 AM EDT [facility] Blood Capillary blood specimen / Unknown 07/15/2025 8:38 AM EDT 07/15/2025 8:39 AM EDT us Anne Franco MD LAB POINT OF CARE TEST DOCKED DEVICE UNSOLICITED RESULTS Final Result Performing Organization Address City/[facility]/ZIP Co de Phone Number [facility] [address] [place] [address] * (ABNORMAL) Phosphorus (07/15/2025 4:50 AM EDT) Phosphorus, Plasma 2.3(L) 2.5 - 4.5 mg/dL 07/15/2025 7:33 AM EDT [facility] Blood Venous blood specimen / Unknown Venipuncture / Unknown 07/15/2025 4:50 AM EDT 07/15/2025 4:59 AM EDT us Anne Franco MD LAB BLOOD ORDERABLES Sarah l Result [facility] [address] [place] [address] * Magnesium (07/15/2025 4:50 AM EDT) Magnesium, Plasma 1.9 1.9 - 2.4 mg/dL 07/15/2025 7:33 AM EDT [facility] Blood Venous blood specimen / Unknown Venipuncture / Unknown 07/15/2025 4:50 AM EDT 07/15/2025 4:59 AM EDT us Anne Franco MD LAB BLOOD ORDERABLES Sarah bennett Result [facility] [address] [place] [address] * (ABNORMAL) Basic metabolic panel (07/15/2025 4:50 AM EDT) Glucose, Plasma 150(H) 74 - 99 mg/dL 07/15/2025 5:31 AM EDT [facility] BUN, Plasma 11 7 - 21 mg/dL 07/15/2025 5:31 AM EDT [facility] Creatinine, Plasma 0.54(L) 0.60 - 1.10 mg/dL 07/15/2025 5:31 AM EDT [facility] BUN/Creatinine Ratio 20 07/15/2025 5:31 AM EDT [facility] Sodium, Plasma 136 136 - 145 mmol/L 07/15/2025 5:31 AM EDT [facility] Potassium, Plasma 4.1 3.6 - 4.9 mmol/L 07/15/2025 5:31 AM EDT [facility] Chloride, Plasma 95(L) 97 - 107 mmol/L 07/15/2025 5:31 AM EDT [facility] CO2, Plasma 32(H) 22 - 29 mmol/L 07/15/2025 5:31 AM EDT [facility] Anion Gap 9 6 - 16 mmol/L 07/15/2025 5:31 AM EDT [facility] Total Calcium, Plasma 8.8(L) 8.9 - 10.2 mg/dL 07/15/2025 5:31 AM EDT [facility] eGFRcr 113.0 mL/min/1.7 3m*2 07/15/2025 5:31 AM EDT [facility] Comment:Reported eGFRcr in m L/min/1.73m2 is based the CKD-EPI 2020 equation that does not use a race coefficient. Blood Venous blood specimen / Unknown Venipuncture / Unknown 07/15/2025 4:50 AM EDT 07/15/2025 4:59 AM EDT us Anne Franco MD LAB BLOOD ORDERABLES Sarah l Result [facility] [address] [place] [address] * (ABNORMAL) POCT glucose meter (07/14/2025 7:57 PM EDT) POCT Glucose 175(H) 74 - 99 mg/dL 07/14/2025 7:58 PM EDT [facility] Comment:Accuracy of a glucos e result obtained from a capillary whole blood specimen relies upon adequate, non-compromised capillary blood flow. If the capillary glucose result is not consistent with the patient's clinical signs and symptoms, glucose testing should be repeated with either an arterial or venous sample on the glucometer or sent to the main labortory for testing. Comment 07/14/2025 7:58 PM EDT [facility] Agriculture Teacher ID Bernard Chirinos 07/14/20 7:58 PM EDT [facility] Device ID [id number] 07/14/2025 7:58 PM EDT [facility] Specimen Type POC Capillary 07/14/2025 7:58 PM EDT [facility] Blood Capillary blood specimen / Unknown 07/14/2025 7:57 PM EDT 07/14/2025 7:58 PM EDT us Anne Franco MD LAB POINT OF CARE TEST DOCKED DEVICE UNSOLICITED RESULTS Final Result Performing Organization Address City/[facility]/ZIP Co de Phone Number [facility] [address] [place] [address] * (ABNORMAL) POCT glucose meter (07/14/2025 4:56 PM EDT) Pathologist [facility] POCT Glucose 154(H) 74 - 99 mg/dL 07/14/2025 4:58 PM EDT [facility] Comment:Accuracy of a glucos e result obtained from a capillary whole blood specimen relies upon adequate, non-compromised capillary blood flow. If the capillary glucose result is not consistent with the patient's clinical signs and symptoms, glucose testing should be repeated with either an arterial or venous sample on the glucometer or sent to the main labortory for testing. Comment 07/14/2025 4:58 PM EDT [facility] Agriculture Teacher ID Riana Higgins 07/14/2025 4:58 PM EDT [facility] Device ID [id number] 07/14/2025 4:58 PM EDT [facility] Specimen Type POC Capillary 07/14/2025 4:58 PM EDT [facility] Blood Capillary blood specimen / Unknown 07/14/2025 4:56 PM EDT 07/14/2025 4:58 PM EDT Anne Franco MD LAB POINT OF CARE TEST DOCKED DEVICE UNSOLICITED RESULTS Final Result Performing Organization Address City/[facility] Co de Phone Number [facility] [address] [place] [address] * (ABNORMAL) POCT glucose meter (07/14/2025 12:38 PM EDT) [facility] Signature POCT Glucose 143(H) 74 - 99 mg/dL 07/14/2025 12:39 PM EDT [facility] Comment:Accuracy of a glucos e result obtained from a capillary whole blood specimen relies upon adequate, non-compromised capillary blood flow. If the capillary glucose result is not consistent with the patient's clinical signs and symptoms, glucose testing should be repeated with either an arterial or venous sample on the glucometer or sent to the main labortory for testing. Comment 07/14/2025 12:39 PM EDT [facility] Agriculture Teacher ID Laura Baez 025 12:39 PM EDT [facility] Device ID [id number] 07/14/2025 12:39 PM EDT [facility] Specimen Type POC Capillary 07/14/2025 12:39 PM EDT [facility] Blood Capillary blood specimen / Unknown 07/14/2025 12:38 PM EDT 07/14/2025 12:39 PM EDT Anne Franco MD LAB POINT OF CARE TEST DOCKED DEVICE UNSOLICITED RESULTS Final Result Performing Organization Address City/[facility]/ZIP Co de Phone Number [facility] [address] [place] [address] * (ABNORMAL) Basic metabolic panel (07/14/2025 9:36 AM EDT) Glucose, Plasma 191(H) 74 - 99 mg/dL 07/14/2025 10:15 AM EDT [facility] BUN, Plasma 16 7 - 21 mg/dL 07/14/2025 10:15 AM EDT [facility] Creatinine, Plasma 0.61 0.60 - 1.10 mg/dL 07/14/2025 10:15 AM EDT [facility] BUN/Creatinine Ratio 26 07/14/2025 10:15 AM EDT [facility] Sodium, Plasma 138 136 - 145 mmol/L 07/14/2025 10:15 AM EDT [facility] Potassium, Plasma 3.2(L) 3.6 - 4.9 mmol/L 07/14/2025 10:15 AM EDT [facility] Chloride, Plasma 96(L) 97 - 107 mmol/L 07/14/2025 10:15 AM EDT [facility] CO2, Plasma 33(H) 22 - 29 mmol/L 07/14/2025 10:15 AM EDT [facility] Anion Gap 9 6 - 16 mmol/L 07/14/2025 10:15 AM EDT [facility] Total Calcium, Plasma 8.7(L) 8.9 - 10.2 mg/dL 07/14/2025 10:15 AM EDT [facility] eGFRcr 109.8 mL/min/1.7 3m*2 07/14/2025 10:15 AM EDT [facility] Comment:Reported eGFRcr in m L/min/1.73m2 is based the CKD-EPI 2020 equation that does not use a race coefficient. Blood Venous blood specimen / Unknown Venipuncture / Unknown 07/14/2025 9:36 AM EDT 07/14/2025 9:44 AM EDT us Anne Franco MD LAB BLOOD ORDERABLES Sarah bennett Result [facility] [address] [place] [address] * (ABNORMAL) Magnesium, Plasma (07/14/2025 9:36 AM EDT) Magnesium, Plasma 1.7(L) 1.9 - 2.4 mg/dL 07/14/2025 10:15 AM EDT [facility] Blood Venous blood specimen / Unknown Venipuncture / Unknown 07/14/2025 9:36 AM EDT 07/14/2025 9:44 AM EDT us Anne Franco MD LAB BLOOD ORDERABLES Sarah l Result Performing Organization Address [facility]/ZIP Co de Phone Number [facility] [address] [place] [address] * (ABNORMAL) Phosphorus, Plasma (07/14/2025 9:36 AM EDT) Phosphorus, Plasma 2.2(L) 2.5 - 4.5 mg/dL 07/14/2025 10:15 AM EDT [facility] Blood Venous blood specimen / Unknown Venipuncture / Unknown 07/14/2025 9:36 AM EDT 07/14/2025 9:44 AM EDT us Anne Franco MD LAB BLOOD ORDERABLES Sarah l Result Performing Organization Address [facility] Co de Phone Number [facility] [address] [place] [address] * (ABNORMAL) CBC W/O Differential (07/14/2025 9:36 AM EDT) Pathologist [facility] WBC Count 21.20(H) 3.70 - 10.30 10*3/uL LAB HEMATOLOGY METHOD 07/14/2025 9:52 AM EDT [facility] RBC Count 3.37(L) 3.90 - 5.20 10*6/uL LAB HEMATOLOGY METHOD 07/14/2025 9:52 AM EDT [facility] HGB 9.2(L) 11.2 - 15.7 g/dL LAB HEMATOLOGY METHOD 07/14/2025 9:52 AM EDT [facility] HCT 29.4(L) 34.0 - 45.0 % LAB HEMATOLOGY METHOD 07/14/2025 9:52 AM EDT [facility] Platelet Count 314 155 - 369 10*3/uL LAB HEMATOLOGY METHOD 07/14/2025 9:52 AM EDT [facility] MCV 87 79 - 98 fL LAB HEMATOLOGY METHOD 07/14/2025 9:52 AM EDT [facility] MCH 27.3 26.0 - 32.0 pg LAB HEMATOLOGY METHOD 07/14/2025 9:52 AM EDT [facility] MCHC 31.3 30.7 - 35.5 g/dL LAB HEMATOLOGY METHOD 07/14/2025 9:52 AM EDT [facility] RDW 17.2(H) 11.5 - 14.5 % LAB HEMATOLOGY METHOD 07/14/2025 9:52 AM EDT [facility] MPV 10.2 8.8 - 12.5 fL LAB HEMATOLOGY METHOD 07/14/2025 9:52 AM EDT [facility] nRBC 0.1(H) <=0.0 per 100 WBCs LAB HEMATOLOGY METHOD 07/14/2025 9:52 AM EDT [facility] Blood Venous blood specimen / Unknown Venipuncture / Unknown 07/14/2025 9:36 AM EDT 07/14/2025 9:44 AM EDT Anne Franco MD LAB BLOOD ORDERABLES Sarah bennett Result [facility] [address] [place] [address] * (ABNORMAL) POCT glucose meter (07/14/2025 8:39 AM EDT) Pathologist [facility] POCT Glucose 185(H) 74 - 99 mg/dL 07/14/2025 8:41 AM EDT [facility] Comment:Accuracy of a glucos e result obtained from a capillary whole blood specimen relies upon adequate, non-compromised capillary blood flow. If the capillary glucose result is not consistent with the patient's clinical signs and symptoms, glucose testing should be repeated with either an arterial or venous sample on the glucometer or sent to the main labortory for testing. Comment 07/14/2025 8:41 AM EDT [facility] Agriculture Teacher ID Baez Laura 025 8:41 AM EDT [facility] Device ID [id number] 07/14/2025 8:41 AM EDT [facility] Specimen Type POC Capillary 07/14/2025 8:41 AM EDT [facility] Blood Capillary blood specimen / Unknown 07/14/2025 8:39 AM EDT 07/14/2025 8:41 AM EDT Anne Franco MD LAB POINT OF CARE TEST DOCKED DEVICE UNSOLICITED RESULTS Final Result Performing Organization Address City/[facility] Co de Phone Number [facility] [address] [place] [address] * (ABNORMAL) POCT glucose meter (07/14/2025 6:18 AM EDT) POCT Glucose 178(H) 74 - 99 mg/dL 07/14/2025 6:20 AM EDT [facility] Comment:Accuracy of a glucos e result obtained from a capillary whole blood specimen relies upon adequate, non-compromised capillary blood flow. If the capillary glucose result is not consistent with the patient's clinical signs and symptoms, glucose testing should be repeated with either an arterial or venous sample on the glucometer or sent to the main labortory for testing. Comment 07/14/2025 6:20 AM EDT [facility] Agriculture Teacher ID Rita Alejandro 6:20 AM EDT [facility] Device ID [id number] 07/14/2025 6:20 AM EDT [facility] Specimen Type POC Capillary 07/14/2025 6:20 AM EDT [facility] Blood Capillary blood specimen / Unknown 07/14/2025 6:18 AM EDT 07/14/2025 6:20 AM EDT us Anne Franco MD LAB POINT OF CARE TEST DOCKED DEVICE UNSOLICITED RESULTS Final Result Performing Organization Address City/[facility]/ZIP Co de Phone Number [facility] [address] [place] [address] * (ABNORMAL) POCT glucose meter (07/13/2025 9:18 PM EDT) POCT Glucose 196(H) 74 - 99 mg/dL 07/13/2025 9:19 PM EDT [facility] Comment:Accuracy of a glucos e result obtained from a capillary whole blood specimen relies upon adequate, non-compromised capillary blood flow. If the capillary glucose result is not consistent with the patient's clinical signs and symptoms, glucose testing should be repeated with either an arterial or venous sample on the glucometer or sent to the main labortory for testing. Comment 07/13/2025 9:19 PM EDT [facility] Agriculture Teacher ID Yenny Tong 025 9:19 PM EDT [facility] Device ID [id number] 07/13/2025 9:19 PM EDT [facility] Specimen Type POC Capillary 07/13/2025 9:19 PM EDT [facility] Blood Capillary blood specimen / Unknown 07/13/2025 9:18 PM EDT 07/13/2025 9:19 PM EDT Anne Franco MD LAB POINT OF CARE TEST DOCKED DEVICE UNSOLICITED RESULTS Final Result [facility] [address] [place] [address] * (ABNORMAL) POCT glucose meter (07/13/2025 6:01 PM EDT) [facility] POCT Glucose 128(H) 74 - 99 mg/dL 07/13/2025 6:02 PM EDT [facility] Comment:Accuracy of a glucos e result obtained from a capillary whole blood specimen relies upon adequate, non-compromised capillary blood flow. If the capillary glucose result is not consistent with the patient's clinical signs and symptoms, glucose testing should be repeated with either an arterial or venous sample on the glucometer or sent to the main labortory for testing. Comment 07/13/2025 6:02 PM EDT [facility] Agriculture Teacher ID Laura Baez 025 6:02 PM EDT [facility] Device ID [id number] 07/13/2025 6:02 PM EDT [facility] Specimen Type POC Capillary 07/13/2025 6:02 PM EDT [facility] Blood Capillary blood specimen / Unknown 07/13/2025 6:01 PM EDT 07/13/2025 6:02 PM EDT Anne Franco MD LAB POINT OF CARE TEST DOCKED DEVICE UNSOLICITED RESULTS Final Result Performing Organization Address [facility] Co de Phone Number [facility] [address] [place] [address] * (ABNORMAL) POCT glucose meter (07/13/2025 12:12 PM EDT) [facility] POCT Glucose 139(H) 74 - 99 mg/dL 07/13/2025 12:14 PM EDT [facility] Comment:Accuracy of a glucos e result obtained from a capillary whole blood specimen relies upon adequate, non-compromised capillary blood flow. If the capillary glucose result is not consistent with the patient's clinical signs and symptoms, glucose testing should be repeated with either an arterial or venous sample on the glucometer or sent to the main labortory for testing. Comment 07/13/2025 12:14 PM EDT [facility] Agriculture Teacher ID Laura Baez 025 12:14 PM EDT [facility] Device ID [id number] 07/13/2025 12:14 PM EDT [facility] Specimen Type POC Capillary 07/13/2025 12:14 PM EDT [facility] Blood Capillary blood specimen / Unknown 07/13/2025 12:12 PM EDT 07/13/2025 12:14 PM EDT Anne Franco MD LAB POINT OF CARE TEST DOCKED DEVICE UNSOLICITED RESULTS Final Result Performing Organization Address City/[facility] Co de Phone Number HEALTHCARE [facility] [address] [place] [address] * (ABNORMAL) Phosphorus (07/13/2025 10:21 AM EDT) [facility] Phosphorus, Plasma 2.2(L) 2.5 - 4.5 mg/dL 07/13/2025 11:23 AM EDT [facility] Blood Venous blood specimen / Unknown Venipuncture / Unknown 07/13/2025 10:21 AM EDT 07/13/2025 10:31 AM EDT us Luanne Crawford MD LAB BLOOD ORDERABLES Final Result Performing Organization Address City/[facility]/ZIP Co de Phone Number [facility] [address] [place] [address] * (ABNORMAL) Magnesium, Plasma (07/13/2025 10:21 AM EDT) Magnesium, Plasma 1.7(L) 1.9 - 2.4 mg/dL 07/13/2025 11:23 AM EDT [facility] Blood Venous blood specimen / Unknown Venipuncture / Unknown 07/13/2025 10:21 AM EDT 07/13/2025 10:31 AM EDT us Luanne Crawford MD LAB BLOOD ORDERABLES Final Result Performing Organization Address [facility] Co de Phone Number [facility] [address] [place] [address] * (ABNORMAL) Basic Metabolic Panel, Plasma (07/13/2025 10:21 AM EDT) Glucose, Plasma 135(H) 74 - 99 mg/dL 07/13/2025 11:23 AM EDT [facility] BUN, Plasma 22(H) 7 - 21 mg/dL 07/13/2025 11:23 AM EDT [facility] Creatinine, Plasma 0.62 0.60 - 1.10 mg/dL 07/13/2025 11:23 AM EDT [facility] BUN/Creatinine Ratio 35 07/13/2025 11:23 AM EDT [facility] Sodium, Plasma 138 136 - 145 mmol/L 07/13/2025 11:23 AM EDT [facility] Potassium, Plasma 3.7 3.6 - 4.9 mmol/L 07/13/2025 11:23 AM EDT [facility] Chloride, Plasma 95(L) 97 - 107 mmol/L 07/13/2025 11:23 AM EDT [facility] CO2, Plasma 30(H) 22 - 29 mmol/L 07/13/2025 11:23 AM EDT [facility] Anion Gap 13 6 - 16 mmol/L 07/13/2025 11:23 AM EDT [facility] Total Calcium, Plasma 9.0 8.9 - 10.2 mg/dL 07/13/2025 11:23 AM EDT [facility] eGFRcr 109.3 mL/min/1.7 3m*2 07/13/2025 11:23 AM EDT [facility] Comment:Reported eGFRcr in m L/min/1.73m2 is based the CKD-EPI 2020 equation that does not use a race coefficient. Blood Venous blood specimen / Unknown Venipuncture / Unknown 07/13/2025 10:21 AM EDT 07/13/2025 10:31 AM EDT us Luanne Crawford MD LAB BLOOD ORDERABLES Final Result [facility] [address] [place] [address] * (ABNORMAL) CBC W/O Differential (07/13/2025 10:21 AM EDT) WBC Count 19.56(H) 3.70 - 10.30 10*3/uL LAB HEMATOLOGY METHOD 07/13/2025 10:59 AM EDT [facility] RBC Count 3.67(L) 3.90 - 5.20 10*6/uL LAB HEMATOLOGY METHOD 07/13/2025 10:59 AM EDT [facility] HGB 10.2(L) 11.2 - 15.7 g/dL LAB HEMATOLOGY METHOD 07/13/2025 10:59 AM EDT [facility] HCT 32.3(L) 34.0 - 45.0 % LAB HEMATOLOGY METHOD 07/13/2025 10:59 AM EDT [facility] Platelet Count 296 155 - 369 10*3/uL LAB HEMATOLOGY METHOD 07/13/2025 10:59 AM EDT [facility] MCV 88 79 - 98 fL LAB HEMATOLOGY METHOD 07/13/2025 10:59 AM EDT [facility] MCH 27.8 26.0 - 32.0 pg LAB HEMATOLOGY METHOD 07/13/2025 10:59 AM EDT [facility] MCHC 31.6 30.7 - 35.5 g/dL LAB HEMATOLOGY METHOD 07/13/2025 10:59 AM EDT [facility] RDW 17.6(H) 11.5 - 14.5 % LAB HEMATOLOGY METHOD 07/13/2025 10:59 AM EDT [facility] MPV 10.3 8.8 - 12.5 fL LAB HEMATOLOGY METHOD 07/13/2025 10:59 AM EDT [facility] nRBC 0.0 <=0.0 per 100 WBCs LAB HEMATOLOGY METHOD 07/13/2025 10:59 AM EDT [facility] Blood Venous blood specimen / Unknown Venipuncture / Unknown 07/13/2025 10:21 AM EDT 07/13/2025 10:31 AM EDT us Luanne Crawfodr MD LAB BLOOD ORDERABLES Final Result [facility] [address] [place] [address] * (ABNORMAL) POCT glucose meter (07/13/2025 8:50 AM EDT) POCT Glucose 102(H) 74 - 99 mg/dL 07/13/2025 8:53 AM EDT [facility] Comment:Accuracy of a glucos e result obtained from a capillary whole blood specimen relies upon adequate, non-compromised capillary blood flow. If the capillary glucose result is not consistent with the patient's clinical signs and symptoms, glucose testing should be repeated with either an arterial or venous sample on the glucometer or sent to the main labortory for testing. Comment 07/13/2025 8:53 AM EDT [facility]ALTHCARE [facility] Agriculture Teacher ID BaezLaura 025 8:53 AM EDT HEALTHCARE LAB Device ID [id number] 07/13/2025 8:53 AM EDT [facility]ALTH[facility]ARE [facility] Specimen Type POC Capillary 07/13/2025 8:53 AM EDT [facility] Blood Capillary blood specimen / Unknown 07/13/2025 8:50 AM EDT 07/13/2025 8:53 AM EDT us Anne Franco MD LAB POINT OF CARE TEST DOCKED DEVICE UNSOLICITED RESULTS Final Result [facility] [address] [place] [address] * (ABNORMAL) POCT glucose meter (07/13/2025 6:11 AM EDT) POCT Glucose 111(H) 74 - 99 mg/dL 07/13/2025 6:13 AM EDT [facility] Comment:Accuracy of a glucos e result obtained from a capillary whole blood specimen relies upon adequate, non-compromised capillary blood flow. If the capillary glucose result is not consistent with the patient's clinical signs and symptoms, glucose testing should be repeated with either an arterial or venous sample on the glucometer or sent to the main labortory for testing. Comment 07/13/2025 6:13 AM EDT [facility] Agriculture Teacher ID Rita Alejandro 6:13 AM EDT [facility] Device ID [id number] 07/13/2025 6:13 AM EDT [facility] Specimen Type POC Capillary 07/13/2025 6:13 AM EDT [facility] Blood Capillary blood specimen / Unknown 07/13/2025 6:11 AM EDT 07/13/2025 6:13 AM EDT Anne Franco MD LAB POINT OF CARE TEST DOCKED DEVICE UNSOLICITED RESULTS Final Result [facility] [address] [place] [address] * (ABNORMAL) POCT glucose meter (07/12/2025 9:28 PM EDT) Pathologist [facility] POCT Glucose 107(H) 74 - 99 mg/dL 07/12/2025 9:30 PM EDT [facility] Comment:Accuracy of a glucos e result obtained from a capillary whole blood specimen relies upon adequate, non-compromised capillary blood flow. If the capillary glucose result is not consistent with the patient's clinical signs and symptoms, glucose testing should be repeated with either an arterial or venous sample on the glucometer or sent to the main labortory for testing. Comment 07/12/2025 9:30 PM EDT HEALTHCARE [facility] Agriculture Teacher ID Yenny Tong 025 9:30 PM EDT HEALTHCARE LAB Device ID [id number] 07/12/2025 9:30 PM EDT HEALTHCARE [facility] Specimen Type POC Capillary 07/12/2025 9:30 PM EDT [facility] Blood Capillary blood specimen / Unknown 07/12/2025 9:28 PM EDT 07/12/2025 9:30 PM EDT Anne Franco MD LAB POINT OF CARE TEST DOCKED DEVICE UNSOLICITED RESULTS Final Result Performing Organization Address City/[facility]/ZIP Co de Phone Number [facility]ARE [facility] [address] [place] [address] * (ABNORMAL) POCT glucose meter (07/12/2025 6:04 PM EDT) [facility] Signature POCT Glucose 129(H) 74 - 99 mg/dL 07/12/2025 6:06 PM EDT [facility] Comment:Accuracy of a glucos e result obtained from a capillary whole blood specimen relies upon adequate, non-compromised capillary blood flow. If the capillary glucose result is not consistent with the patient's clinical signs and symptoms, glucose testing should be repeated with either an arterial or venous sample on the glucometer or sent to the main labortory for testing. Comment 07/12/2025 6:06 PM EDT HEALTHCARE [facility] Agriculture Teacher ID Jeana Bear 07/12/2025 6:06 PM EDT HEALTHCARE LAB Device ID [id number] 07/12/2025 6:06 PM EDT HEALTHCARE [facility] Specimen Type POC Capillary 07/12/2025 6:06 PM EDT [facility] Blood Capillary blood specimen / Unknown 07/12/2025 6:04 PM EDT 07/12/2025 6:06 PM EDT Anne Franco MD LAB POINT OF CARE TEST DOCKED DEVICE UNSOLICITED RESULTS Final Result Performing Organization Address City/[facility]/ZIP Co de Phone Number [facility]ARE [facility] [address] [place] [address] * PERIPHERAL IV (SMARTFORM LINK) (07/12/2025 3:51 PM EDT) Narrative Halima Live RN - 07/12/2025 3:51 PM EDT Halima Live RN 07/12/2025 3:52 PM Insert peripheral IV Performed by: Halima Live RN Authorized by: Anne Franco MD Hand hygiene: Hand hygiene performed prior to insertion Inserted using aseptic techniques: Yes Preparation: Skin prepped with chg Orientation: Right Location: Forearm Catheter placed: Peripheral IV Catheter size: 20g/2.00in Line Technique: Ultrasound Guidance Number of attempts: 1 IV flushes: Without difficulty and positive blood return noted and IV luer locked Patient tolerance: There were no complications and patient tolerated the procedure well Patient comfort measures used: Position of comfort IV site covered with: Transparent semipermeable dressing (Skin prep used.) Education provided to: Patient Comments: Pertinent ultrasound and/or 3CG images sent to PACS. Anne Franco MD IV THERAPY ORDERABLES Fin al Result * (ABNORMAL) POCT glucose meter (07/12/2025 11:55 AM EDT) Pathologist [facility] POCT Glucose 119(H) 74 - 99 mg/dL 07/12/2025 11:56 AM EDT [facility] Comment:Accuracy of a glucos e result obtained from a capillary whole blood specimen relies upon adequate, non-compromised capillary blood flow. If the capillary glucose result is not consistent with the patient's clinical signs and symptoms, glucose testing should be repeated with either an arterial or venous sample on the glucometer or sent to the main labortory for testing. Comment 07/12/2025 11:56 AM EDT [facility] Agriculture Teacher ID Jeana Bear 07/12/2025 11:56 AM EDT HEALTHCARE LAB Device ID [id number] 07/12/2025 11:56 AM EDT [facility]ALTHCARE [facility] Specimen Type POC Capillary 07/12/2025 11:56 AM EDT [facility] Blood Capillary blood specimen / Unknown 07/12/2025 11:55 AM EDT 07/12/2025 11:56 AM EDT Dorcas Hennessy MD LAB POINT OF CARE TE ST DOCKED DEVICE UNSOLICITED RESULTS Final Result [facility] [address] [place] [address] * XR Chest 1 View (07/12/2025 11:11 AM EDT) Anatomical Region Laterality Modality Chest Digital Radiogra phy Impressions 07/12/2025 12:15 PM EDT Hardware as above. Worsening multifocal airspace disease, likely representing edema. CRITICAL RESULT: No. COMMUNICATION: Per this written report. Drafted by Moy Khoury MD on 07/12/2025 12:14 PM Final report signed by Moy Khoury MD on 07/12/2025 12:15 PM Narrative 07/12/2025 12:15 PM EDT CLINICAL INDICATION: SOA, on HFNC TECHNIQUE: XR CHEST 1 VIEW COMPARISON: July 09, 2025. FINDINGS: Extubation and removal of nasogastric tube. Cardiomegaly with vascular congestion and multifocal airspace disease, worse. No pleural effusion. Procedure Note Moy Khoury MD - 07/12/2025 CLINICAL INDICATION: SOA, on HFNC TECHNIQUE: XR CHEST 1 VIEW COMPARISON: July 09, 2025. FINDINGS: Extubation and removal of nasogastric tube. Cardiomegaly with vascularcongestion and multifocal airspace disease, worse. No pleural effusion. IMPRESSION: Hardware as above. Worsening multifocal airspace disease, likelyrepresenting edema. CRITICAL RESULT: No. COMMUNICATION: Per this written report. Drafted by Moy Khoury MD on 07/12/2025 12:14 PM Final report signed by Moy Khoury MD on 07/12/2025 12:15 PM us Anne Franco MD IMG XR PROCEDURES Final R esult * (ABNORMAL) POCT glucose meter (07/12/2025 8:41 AM EDT) POCT Glucose 128(H) 74 - 99 mg/dL 07/12/2025 8:42 AM EDT [facility] Comment:Accuracy of a glucos e result obtained from a capillary whole blood specimen relies upon adequate, non-compromised capillary blood flow. If the capillary glucose result is not consistent with the patient's clinical signs and symptoms, glucose testing should be repeated with either an arterial or venous sample on the glucometer or sent to the main labortory for testing. Comment 07/12/2025 8:42 AM EDT [facility]ALTHCARE LAB Agriculture Teacher ID Jeana Bear 07/12/2025 8:42 AM EDT HEALTHCARE LAB Device ID [id number] 07/12/2025 8:42 AM EDT [facility]ALTHCARE [facility] Specimen Type POC Capillary 07/12/2025 8:42 AM EDT [facility]ARE [facility] Blood Capillary blood specimen / Unknown 07/12/2025 8:41 AM EDT 07/12/2025 8:42 AM EDT Dorcas Hennessy MD LAB POINT OF CARE TE ST DOCKED DEVICE UNSOLICITED RESULTS Final Result Performing Organization Address City/[facility]/ZIP Co de Phone Number HEALTHCARE LAB [address] [place] [address] * Phosphorus (07/12/2025 12:25 AM EDT) Phosphorus, Plasma 2.9 2.5 - 4.5 mg/dL 07/12/2025 1:22 AM EDT [facility] Blood Venous blood specimen / Unknown Venipuncture / Unknown 07/12/2025 12:25 AM EDT 07/12/2025 12:52 AM EDT Luanne Crawford MD LAB BLOOD ORDERABLES Final Result Performing Organization Address City/[facility]/ZIP Co de Phone Number [facility] [address] [place] [address] * Magnesium, Plasma (07/12/2025 12:25 AM EDT) Magnesium, Plasma 2.0 1.9 - 2.4 mg/dL 07/12/2025 1:22 AM EDT [facility] Blood Venous blood specimen / Unknown Venipuncture / Unknown 07/12/2025 12:25 AM EDT 07/12/2025 12:52 AM EDT Luanne Crawford MD LAB BLOOD ORDERABLES Final Result [facility] [address] [place] [address] * (ABNORMAL) Basic Metabolic Panel, Plasma (07/12/2025 12:25 AM EDT) Glucose, Plasma 92 74 - 99 mg/dL 07/12/2025 1:22 AM EDT [facility] BUN, Plasma 18 7 - 21 mg/dL 07/12/2025 1:22 AM EDT [facility] Creatinine, Plasma 0.84 0.60 - 1.10 mg/dL 07/12/2025 1:22 AM EDT [facility] BUN/Creatinine Ratio 21 07/12/2025 1:22 AM EDT [facility] Sodium, Plasma 142 136 - 145 mmol/L 07/12/2025 1:22 AM EDT [facility] Potassium, Plasma 3.6 3.6 - 4.9 mmol/L 07/12/2025 1:22 AM EDT [facility] Chloride, Plasma 103 97 - 107 mmol/L 07/12/2025 1:22 AM EDT [facility] CO2, Plasma 31(H) 22 - 29 mmol/L 07/12/2025 1:22 AM EDT [facility] Anion Gap 8 6 - 16 mmol/L 07/12/2025 1:22 AM EDT [facility] Total Calcium, Plasma 8.8(L) 8.9 - 10.2 mg/dL 07/12/2025 1:22 AM EDT [facility] eGFRcr 85.3 mL/min/1.7 3m*2 07/12/2025 1:22 AM EDT [facility] Comment:Reported eGFRcr in m L/min/1.73m2 is based the CKD-EPI 2020 equation that does not use a race coefficient. Blood Venous blood specimen / Unknown Venipuncture / Unknown 07/12/2025 12:25 AM EDT 07/12/2025 12:52 AM EDT us Luanne Crawford MD LAB BLOOD ORDERABLES Final Result [facility] [address] [place] [address] * (ABNORMAL) CBC W/O Differential (07/12/2025 12:25 AM EDT) WBC Count 15.81(H) 3.70 - 10.30 10*3/uL LAB HEMATOLOGY METHOD 07/12/2025 1:05 AM EDT [facility] RBC Count 3.39(L) 3.90 - 5.20 10*6/uL LAB HEMATOLOGY METHOD 07/12/2025 1:05 AM EDT [facility] HGB 9.3(L) 11.2 - 15.7 g/dL LAB HEMATOLOGY METHOD 07/12/2025 1:05 AM EDT [facility] HCT 29.8(L) 34.0 - 45.0 % LAB HEMATOLOGY METHOD 07/12/2025 1:05 AM EDT [facility] Platelet Count 276 155 - 369 10*3/uL LAB HEMATOLOGY METHOD 07/12/2025 1:05 AM EDT [facility] MCV 88 79 - 98 fL LAB HEMATOLOGY METHOD 07/12/2025 1:05 AM EDT [facility] MCH 27.4 26.0 - 32.0 pg LAB HEMATOLOGY METHOD 07/12/2025 1:05 AM EDT [facility] MCHC 31.2 30.7 - 35.5 g/dL LAB HEMATOLOGY METHOD 07/12/2025 1:05 AM EDT [facility] RDW 18.0(H) 11.5 - 14.5 % LAB HEMATOLOGY METHOD 07/12/2025 1:05 AM EDT [facility] MPV 10.5 8.8 - 12.5 fL LAB HEMATOLOGY METHOD 07/12/2025 1:05 AM EDT [facility] nRBC 0.0 <=0.0 per 100 WBCs LAB HEMATOLOGY METHOD 07/12/2025 1:05 AM EDT [facility] Blood Venous blood specimen / Unknown Venipuncture / Unknown 07/12/2025 12:25 AM EDT 07/12/2025 12:55 AM EDT us Luanne Crawford MD LAB BLOOD ORDERABLES Final Result [facility] [address] [place] [address] * (ABNORMAL) POCT Glucose (if patient NPO, on TPN or continuous nutrition) (07/11/2025 8:45 PM EDT) POCT Glucose 119(A) 74 - 99 mg/dL [facility] Test Strip Lot Number \[id number] [facility] Test Strip Expiration 09/24/2026 [facility] Blood Venous blood specimen / Unknown 07/11/2025 8:45 PM EDT us Dorcas Hennessy MD POINT OF CARE TEST ENTER/EDIT OR DERABLES Final Result Performing Organization Address [facility] Co de Phone Number [facility] [address] [place] [address] * (ABNORMAL) POCT Glucose - Before Meals and Bedtime (07/11/2025 8:43 PM EDT) [facility] POCT Glucose 119(A) 74 - 99 mg/dL [facility] Test Strip Lot Number [id number] [facility] Test Strip Expiration 09/24/2026 [facility] Blood Venous blood specimen / Unknown 07/11/2025 8:43 PM EDT us Dorcas Hennessy MD POINT OF CARE TEST ENTER/EDIT OR DERABLES Final Result Performing Organization Address [facility] Co de Phone Number [facility]ALTHCARE [facility] [address] [place] [address] * (ABNORMAL) POCT glucose meter (07/11/2025 8:42 PM EDT) POCT Glucose 119(H) 74 - 99 mg/dL 07/11/2025 8:43 PM EDT [facility] Comment:Accuracy of a glucos e result obtained from a capillary whole blood specimen relies upon adequate, non-compromised capillary blood flow. If the capillary glucose result is not consistent with the patient's clinical signs and symptoms, glucose testing should be repeated with either an arterial or venous sample on the glucometer or sent to the main labortory for testing. Comment 07/11/2025 8:43 PM EDT [facility] Agriculture Teacher ID Jf Cruz 07/11/2025 8:43 PM EDT [facility] Device ID [id number] 07/11/2025 8:43 PM EDT [facility] Specimen Type POC Capillary 07/11/2025 8:43 PM EDT [facility]ALTH[facility]ARE [facility] Blood Capillary blood specimen / Unknown 07/11/2025 8:42 PM EDT 07/11/2025 8:43 PM EDT us Dorcas Hennessy MD LAB POINT OF CARE TE ST DOCKED DEVICE UNSOLICITED RESULTS Final Result Performing Organization Address City/[facility]/ZIP Co de Phone Number [facility] [address] [place] [address] * (ABNORMAL) POCT glucose meter (07/11/2025 5:38 PM EDT) [facility] Signature POCT Glucose 142(H) 74 - 99 mg/dL 07/11/2025 5:40 PM EDT [facility] Comment:Accuracy of a glucos e result obtained from a capillary whole blood specimen relies upon adequate, non-compromised capillary blood flow. If the capillary glucose result is not consistent with the patient's clinical signs and symptoms, glucose testing should be repeated with either an arterial or venous sample on the glucometer or sent to the main labortory for testing. Comment 07/11/2025 5:40 PM EDT [facility] Agriculture Teacher ID Ayana Amato 07/11/2025 5:40 PM EDT [facility] Device ID [id number] 07/11/2025 5:40 PM EDT [facility] Specimen Type POC Capillary 07/11/2025 5:40 PM EDT [facility] Blood Capillary blood specimen / Unknown 07/11/2025 5:38 PM EDT 07/11/2025 5:40 PM EDT us Dorcas Hennessy MD LAB POINT OF CARE TE ST DOCKED DEVICE UNSOLICITED RESULTS Final Result [facility] [address] [place] [address] * (ABNORMAL) POCT glucose meter (07/11/2025 3:36 PM EDT) [facility] POCT Glucose 144(H) 74 - 99 mg/dL 07/11/2025 3:38 PM EDT [facility] Comment:Accuracy of a glucos e result obtained from a capillary whole blood specimen relies upon adequate, non-compromised capillary blood flow. If the capillary glucose result is not consistent with the patient's clinical signs and symptoms, glucose testing should be repeated with either an arterial or venous sample on the glucometer or sent to the main labortory for testing. Comment 07/11/2025 3:38 PM EDT [facility] Agriculture Teacher ID Radha Frias 07/11/20 3:38 PM EDT [facility] Device ID [id number] 07/11/2025 3:38 PM EDT [facility]ALTH[facility] LAB Specimen Type POC Venous 07/11/2025 3:38 PM EDT [facility] Blood Venous blood specimen / Unknown 07/11/2025 3:36 PM EDT 07/11/2025 3:38 PM EDT Dorcas Hennessy MD LAB POINT OF CARE TE ST DOCKED DEVICE UNSOLICITED RESULTS Final Result Performing Organization Address City/State/[facility] Co de Phone Number [facility] [address] [place] [address] * (ABNORMAL) POCT glucose meter (07/11/2025 1:52 PM EDT) [facility] POCT Glucose 140(H) 74 - 99 mg/dL 07/11/2025 1:54 PM EDT [facility] Comment:Accuracy of a glucos e result obtained from a capillary whole blood specimen relies upon adequate, non-compromised capillary blood flow. If the capillary glucose result is not consistent with the patient's clinical signs and symptoms, glucose testing should be repeated with either an arterial or venous sample on the glucometer or sent to the main labortory for testing. Comment 07/11/2025 1:54 PM EDT [facility] Agriculture Teacher ID Ayana Amato 07/11/2025 1:54 PM EDT [facility] Device ID [id number] 07/11/2025 1:54 PM EDT [facility] Specimen Type POC Capillary 07/11/2025 1:54 PM EDT [facility] Blood Capillary blood specimen / Unknown 07/11/2025 1:52 PM EDT 07/11/2025 1:54 PM EDT Dorcas Hennessy MD LAB POINT OF CARE TE ST DOCKED DEVICE UNSOLICITED RESULTS Final Result [facility] [address] [place] [address] * (ABNORMAL) POCT glucose meter (07/11/2025 12:12 PM EDT) POCT Glucose 154(H) 74 - 99 mg/dL 07/11/2025 12:13 PM EDT [facility] Comment:Accuracy of a glucos e result obtained from a capillary whole blood specimen relies upon adequate, non-compromised capillary blood flow. If the capillary glucose result is not consistent with the patient's clinical signs and symptoms, glucose testing should be repeated with either an arterial or venous sample on the glucometer or sent to the main labortory for testing. Comment 07/11/2025 12:13 PM EDT [facility]ALTH[facility]ARE [facility] Agriculture Teacher ID Ayana Amato 07/11/2025 12:13 PM EDT HEALTHCARE LAB Device ID [id number] 07/11/2025 12:13 PM EDT [facility] Specimen Type POC Capillary 07/11/2025 12:13 PM EDT [facility] Blood Capillary blood specimen / Unknown 07/11/2025 12:12 PM EDT 07/11/2025 12:13 PM EDT Luanne Crawford MD LAB POINT OF CARE TEST DOCKED DEVICE UNSOLICITED RESULTS Final Result [facility] [address] [place] [address] * (ABNORMAL) POCT glucose meter (07/11/2025 9:57 AM EDT) POCT Glucose 135(H) 74 - 99 mg/dL 07/11/2025 9:59 AM EDT [facility] Comment:Accuracy of a glucos e result obtained from a capillary whole blood specimen relies upon adequate, non-compromised capillary blood flow. If the capillary glucose result is not consistent with the patient's clinical signs and symptoms, glucose testing should be repeated with either an arterial or venous sample on the glucometer or sent to the main labortory for testing. Comment 07/11/2025 9:59 AM EDT [facility]ALTHCARE [facility] Agriculture Teacher ID Ayana Amato 07/11/2025 9:59 AM EDT HEALTHCARE LAB Device ID [id number] 07/11/2025 9:59 AM EDT [facility]ALTH[facility]ARE [facility] Specimen Type POC Capillary 07/11/2025 9:59 AM EDT [facility] Blood Capillary blood specimen / Unknown 07/11/2025 9:57 AM EDT 07/11/2025 9:59 AM EDT us Luanne Crawford MD LAB POINT OF CARE TEST DOCKED DEVICE UNSOLICITED RESULTS Final Result Performing Organization Address City/State/[facility] de Phone Number HEALTHCARE LAB [address] [place] [address] * [facility], E/M 30-74 MINUTES (07/11/2025 8:41 AM EDT) Narrative Dorcas Hennessy MD - 07/11/2025 8:41 AM EDT Dorcas Hennessy MD 07/18/2025 7:23 PM Critical Care Performed by: Dorcas Hennessy MD Authorized by: Dorcas Hennessy MD Critical care provider statement: Critical care time (minutes): 45 Critical care time was exclusive of: Separately billable procedures and treating other patients and teaching time Critical care was time spent personally by me on the following activities: Development of treatment plan with patient or surrogate, discussions with primary provider, evaluation of patient's response to treatment, examination of patient, ordering and performing treatments and interventions, ordering and review of laboratory studies and ordering and review of radiographic studies I assumed subsequent critical care for this patient from a provider in my division, on the same day: no Comments: I saw and evaluated the patient. I discussed the case with the medical student and resident/fellow and agree with the findings and plan as documented. I personally participated in the management of the patient. I evaluated and treated the patient multiple times throughout the day, starting at 6:30 AM. The patient remains critically ill requiring ongoing life and organ-supporting interventions. Remains on low dose pressors. Will give volume and attempt to wean pressors. Remains on HFNC for respiratory insufficiency, will wean FiO2 as able. OR today for possible wound VAC. Dorcas Hennessy MD, PhD Acute Care Surgery, Trauma and Surgical Critical Care us Dorcas Hennessy MD IN CLINIC/BEDSIDE ORDERABLES Fin al Result * (ABNORMAL) POCT glucose meter (07/11/2025 8:13 AM EDT) POCT Glucose 140(H) 74 - 99 mg/dL 07/11/2025 8:15 AM EDT [facility] Comment:Accuracy of a glucos e result obtained from a capillary whole blood specimen relies upon adequate, non-compromised capillary blood flow. If the capillary glucose result is not consistent with the patient's clinical signs and symptoms, glucose testing should be repeated with either an arterial or venous sample on the glucometer or sent to the main labortory for testing. Comment 07/11/2025 8:15 AM EDT [facility] Agriculture Teacher ID Ayana Amato 07/11/2025 8:15 AM EDT [facility] Device ID [id number] 07/11/2025 8:15 AM EDT [facility] Specimen Type POC Capillary 07/11/2025 8:15 AM EDT [facility] Blood Capillary blood specimen / Unknown 07/11/2025 8:13 AM EDT 07/11/2025 8:15 AM EDT us Luanne Crawford MD LAB POINT OF CARE TEST DOCKED DEVICE UNSOLICITED RESULTS Final Result [facility] [address] [place] [id number] * (ABNORMAL) POCT glucose meter (07/11/2025 6:03 AM EDT) POCT Glucose 135(H) 74 - 99 mg/dL 07/11/2025 6:05 AM EDT [facility] Comment:Accuracy of a glucos e result obtained from a capillary whole blood specimen relies upon adequate, non-compromised capillary blood flow. If the capillary glucose result is not consistent with the patient's clinical signs and symptoms, glucose testing should be repeated with either an arterial or venous sample on the glucometer or sent to the main labortory for testing. Comment 07/11/2025 6:05 AM EDT [facility] Agriculture Teacher ID Cheyanne Briceño 07/11/2025 6:05 AM EDT [facility] Device ID [id number] 07/11/2025 6:05 AM EDT [facility] Specimen Type POC Capillary 07/11/2025 6:05 AM EDT [facility] Blood Capillary blood specimen / Unknown 07/11/2025 6:03 AM EDT 07/11/2025 6:05 AM EDT us Luanne Crawford MD LAB POINT OF CARE TEST DOCKED DEVICE UNSOLICITED RESULTS Final Result Performing Organization Address City/State/[facility] Co de Phone Number [facility] [address] [place] [address] * (ABNORMAL) POCT glucose meter (07/11/2025 4:04 AM EDT) POCT Glucose 107(H) 74 - 99 mg/dL 07/11/2025 4:06 AM EDT [facility] Comment:Accuracy of a glucos e result obtained from a capillary whole blood specimen relies upon adequate, non-compromised capillary blood flow. If the capillary glucose result is not consistent with the patient's clinical signs and symptoms, glucose testing should be repeated with either an arterial or venous sample on the glucometer or sent to the main labortory for testing. Comment 07/11/2025 4:06 AM EDT [facility] Agriculture Teacher ID Cheyanne Briceño 07/11/2025 4:06 AM EDT [facility] Device ID [id number] 07/11/2025 4:06 AM EDT [facility] Specimen Type POC Capillary 07/11/2025 4:06 AM EDT [facility] Blood Capillary blood specimen / Unknown 07/11/2025 4:04 AM EDT 07/11/2025 4:06 AM EDT us Luanne Crawford MD LAB POINT OF CARE TEST DOCKED DEVICE UNSOLICITED RESULTS Final Result Performing Organization Address City/[facility]/ZIP Co de Phone Number [facility] [address] [place] [address] * (ABNORMAL) POCT glucose meter (07/11/2025 2:02 AM EDT) [facility] POCT Glucose 130(H) 74 - 99 mg/dL 07/11/2025 2:03 AM EDT [facility] Comment:Accuracy of a glucos e result obtained from a capillary whole blood specimen relies upon adequate, non-compromised capillary blood flow. If the capillary glucose result is not consistent with the patient's clinical signs and symptoms, glucose testing should be repeated with either an arterial or venous sample on the glucometer or sent to the main labortory for testing. Comment 07/11/2025 2:03 AM EDT [facility] Agriculture Teacher ID Cheyanne Briceño 07/11/2025 2:03 AM EDT HEALTH[facility]ARE LAB Device ID [id number] 07/11/2025 2:03 AM EDT [facility] Specimen Type POC Capillary 07/11/2025 2:03 AM EDT [facility] Blood Capillary blood specimen / Unknown 07/11/2025 2:02 AM EDT 07/11/2025 2:03 AM EDT Luanne Crawford MD LAB POINT OF CARE TEST DOCKED DEVICE UNSOLICITED RESULTS Final Result Performing Organization Address City/[facility] Co de Phone Number [facility] [address] [place] [address] * Phosphorus (07/11/2025 12:09 AM EDT) [facility] Phosphorus, Plasma 3.7 2.5 - 4.5 mg/dL 07/11/2025 12:54 AM EDT [facility] Blood Venous blood specimen / Unknown Venipuncture / Unknown 07/11/2025 12:09 AM EDT 07/11/2025 12:26 AM EDT us Luanne Crawford MD LAB BLOOD ORDERABLES Final Result Performing Organization Address City/[facility]/ZIP Co de Phone Number [facility] [address] [place] [address] * (ABNORMAL) Magnesium, Plasma (07/11/2025 12:09 AM EDT) Magnesium, Plasma 1.8(L) 1.9 - 2.4 mg/dL 07/11/2025 12:54 AM EDT [facility] Blood Venous blood specimen / Unknown Venipuncture / Unknown 07/11/2025 12:09 AM EDT 07/11/2025 12:26 AM EDT us Luanne Crawford MD LAB BLOOD ORDERABLES Final Result [facility] [address] [place] [address] * (ABNORMAL) Basic Metabolic Panel, Plasma (07/11/2025 12:09 AM EDT) Glucose, Plasma 163(H) 74 - 99 mg/dL 07/11/2025 12:54 AM EDT [facility] BUN, Plasma 20 7 - 21 mg/dL 07/11/2025 12:54 AM EDT [facility] Creatinine, Plasma 0.99 0.60 - 1.10 mg/dL 07/11/2025 12:54 AM EDT [facility] BUN/Creatinine Ratio 20 07/11/2025 12:54 AM EDT [facility] Sodium, Plasma 141 136 - 145 mmol/L 07/11/2025 12:54 AM EDT [facility] Potassium, Plasma 3.8 3.6 - 4.9 mmol/L 07/11/2025 12:54 AM EDT [facility] Chloride, Plasma 104 97 - 107 mmol/L 07/11/2025 12:54 AM EDT [facility] CO2, Plasma 27 22 - 29 mmol/L 07/11/2025 12:54 AM EDT [facility] Anion Gap 10 6 - 16 mmol/L 07/11/2025 12:54 AM EDT [facility] Total Calcium, Plasma 9.1 8.9 - 10.2 mg/dL 07/11/2025 12:54 AM EDT [facility] eGFRcr 70.0 mL/min/1.7 3m*2 07/11/2025 12:54 AM EDT [facility] Comment:Reported eGFRcr in m L/min/1.73m2 is based the CKD-EPI 2020 equation that does not use a race coefficient. Blood Venous blood specimen / Unknown Venipuncture / Unknown 07/11/2025 12:09 AM EDT 07/11/2025 12:26 AM EDT us Luanne Crawford MD LAB BLOOD ORDERABLES Final Result [facility] [address] [place] [address] * (ABNORMAL) CBC W/O Differential (07/11/2025 12:09 AM EDT) WBC Count 13.23(H) 3.70 - 10.30 10*3/uL LAB HEMATOLOGY METHOD 07/11/2025 12:36 AM EDT [facility] RBC Count 3.65(L) 3.90 - 5.20 10*6/uL LAB HEMATOLOGY METHOD 07/11/2025 12:36 AM EDT [facility] HGB 10.1(L) 11.2 - 15.7 g/dL LAB HEMATOLOGY METHOD 07/11/2025 12:36 AM EDT [facility] HCT 32.1(L) 34.0 - 45.0 % LAB HEMATOLOGY METHOD 07/11/2025 12:36 AM EDT [facility] Platelet Count 270 155 - 369 10*3/uL LAB HEMATOLOGY METHOD 07/11/2025 12:36 AM EDT [facility] MCV 88 79 - 98 fL LAB HEMATOLOGY METHOD 07/11/2025 12:36 AM EDT [facility] MCH 27.7 26.0 - 32.0 pg LAB HEMATOLOGY METHOD 07/11/2025 12:36 AM EDT [facility] MCHC 31.5 30.7 - 35.5 g/dL LAB HEMATOLOGY METHOD 07/11/2025 12:36 AM EDT [facility] RDW 17.9(H) 11.5 - 14.5 % LAB HEMATOLOGY METHOD 07/11/2025 12:36 AM EDT [facility] MPV 10.7 8.8 - 12.5 fL LAB HEMATOLOGY METHOD 07/11/2025 12:36 AM EDT [facility] nRBC 0.0 <=0.0 per 100 WBCs LAB HEMATOLOGY METHOD 07/11/2025 12:36 AM EDT [facility] Blood Venous blood specimen / Unknown Venipuncture / Unknown 07/11/2025 12:09 AM EDT 07/11/2025 12:29 AM EDT us Luanne Crawford MD LAB BLOOD ORDERABLES Final Result Performing Organization Address City/[facility] Co de Phone Number [facility] [address] [place] [address] * (ABNORMAL) POCT glucose meter (07/11/2025 12:04 AM EDT) [facility] POCT Glucose 156(H) 74 - 99 mg/dL 07/11/2025 12:06 AM EDT [facility] Comment:Accuracy of a glucos e result obtained from a capillary whole blood specimen relies upon adequate, non-compromised capillary blood flow. If the capillary glucose result is not consistent with the patient's clinical signs and symptoms, glucose testing should be repeated with either an arterial or venous sample on the glucometer or sent to the main labortory for testing. Comment 07/11/2025 12:06 AM EDT [facility] Agriculture Teacher ID Cheyanne Briceño 07/11/2025 12:06 AM EDT [facility] LAB Device ID [id number] 07/11/2025 12:06 AM EDT [facility] Specimen Type POC Capillary 07/11/2025 12:06 AM EDT [facility] Blood Capillary blood specimen / Unknown 07/11/2025 12:04 AM EDT 07/11/2025 12:06 AM EDT us Luanne Crawford MD LAB POINT OF CARE TEST DOCKED DEVICE UNSOLICITED RESULTS Final Result Performing Organization Address City/[facility]/ZIP Co de Phone Number [facility] [address] [place] [address] * (ABNORMAL) POCT glucose meter (07/10/2025 10:02 PM EDT) Pathologist [facility] POCT Glucose 202(H) 74 - 99 mg/dL 07/10/2025 10:03 PM EDT [facility] Comment:Accuracy of a glucos e result obtained from a capillary whole blood specimen relies upon adequate, non-compromised capillary blood flow. If the capillary glucose result is not consistent with the patient's clinical signs and symptoms, glucose testing should be repeated with either an arterial or venous sample on the glucometer or sent to the main labortory for testing. Comment 07/10/2025 10:03 PM EDT [facility] Agriculture Teacher ID Lidia Ugalde 07/10/2025 10:03 PM EDT [facility] LAB Device ID [id number] 07/10/2025 10:03 PM EDT [facility] Specimen Type POC Capillary 07/10/2025 10:03 PM EDT [facility] Blood Capillary blood specimen / Unknown 07/10/2025 10:02 PM EDT 07/10/2025 10:03 PM EDT us Luanne Crawford MD LAB POINT OF CARE TEST DOCKED DEVICE UNSOLICITED RESULTS Final Result [facility] [address] [place] [address] * (ABNORMAL) Blood gas panel, arterial (07/10/2025 8:23 PM EDT) Pathologist [facility] pH, Arterial 7.30(L) 7.35 - 7.45 LAB HEMATOLOGY METHOD 07/10/2025 8:40 PM EDT [facility] pCO2, Arterial 57(H) 35 - 48 mmHg LAB HEMATOLOGY METHOD 07/10/2025 8:40 PM EDT [facility] pO2, Arterial 80(L) 83 - 108 mmHg LAB HEMATOLOGY METHOD 07/10/2025 8:40 PM EDT [facility] SO2, Measured, Arterial 95 94 - 98 % LAB HEMATOLOGY METHOD 07/10/2025 8:40 PM EDT [facility] Base Excess, Arterial 1.1 -2.0 - 3.0 mmol/L LAB HEMATOLOGY METHOD 07/10/2025 8:40 PM EDT [facility] Bicarbonate, Calculated, Arterial 28(H) 22 - 26 mmol/L LAB HEMATOLOGY METHOD 07/10/2025 8:40 PM EDT [facility] Hematocrit, Whole Blood 31.5(L) 34.0 - 45.0 % LAB HEMATOLOGY METHOD 07/10/2025 8:40 PM EDT [facility] Sodium, Whole Blood 138 136 - 145 mmol/L LAB HEMATOLOGY METHOD 07/10/2025 8:40 PM EDT [facility] Potassium, Whole Blood 3.9 3.6 - 4.9 mmol/L LAB HEMATOLOGY METHOD 07/10/2025 8:40 PM EDT [facility] Chloride, Whole Blood 103 97 - 107 mmol/L LAB HEMATOLOGY METHOD 07/10/2025 8:40 PM EDT [facility] Glucose, Whole Blood 206(H) 74 - 99 mg/dL LAB HEMATOLOGY METHOD 07/10/2025 8:40 PM EDT [facility] Ionized Calcium, Whole Blood 5.0 4.6 - 5.1 mg/dL LAB HEMATOLOGY METHOD 07/10/2025 8:40 PM EDT [facility] Lactate, Arterial, Whole Blood 1.7(H) 0.5 - 1.6 mmol/L LAB HEMATOLOGY METHOD 07/10/2025 8:40 PM EDT [facility] Blood Arterial blood specimen / Unknown Arterial Puncture / Unknown 07/10/2025 8:23 PM EDT 07/10/2025 8:35 PM EDT us Luanne Crawford MD LAB BLOOD ORDERABLES Final Result Performing Organization Address City/State/[facility] Co de Phone Number [facility] [address] [place] [address] * (ABNORMAL) POCT glucose meter (07/10/2025 8:03 PM EDT) POCT Glucose 206(H) 74 - 99 mg/dL 07/10/2025 8:05 PM EDT [facility] Comment:Accuracy of a glucos e result obtained from a capillary whole blood specimen relies upon adequate, non-compromised capillary blood flow. If the capillary glucose result is not consistent with the patient's clinical signs and symptoms, glucose testing should be repeated with either an arterial or venous sample on the glucometer or sent to the main labortory for testing. Comment 07/10/2025 8:05 PM EDT [facility] Agriculture Teacher ID Cheyanne Briceño 07/10/2025 8:05 PM EDT [facility] Device ID [id number] 07/10/2025 8:05 PM EDT [facility] Specimen Type POC Capillary 07/10/2025 8:05 PM EDT [facility] Blood Capillary blood specimen / Unknown 07/10/2025 8:03 PM EDT 07/10/2025 8:05 PM EDT us Luanne Crawford MD LAB POINT OF CARE TEST DOCKED DEVICE UNSOLICITED RESULTS Final Result Performing Organization Address City/[facility]/ZIP Co de Phone Number [facility] [address] [place] [address] * (ABNORMAL) POCT glucose meter (07/10/2025 6:22 PM EDT) POCT Glucose 150(H) 74 - 99 mg/dL 07/10/2025 6:25 PM EDT [facility] Comment:Accuracy of a glucos e result obtained from a capillary whole blood specimen relies upon adequate, non-compromised capillary blood flow. If the capillary glucose result is not consistent with the patient's clinical signs and symptoms, glucose testing should be repeated with either an arterial or venous sample on the glucometer or sent to the main labortory for testing. Comment 07/10/2025 6:25 PM EDT [facility] Agriculture Teacher ID Zara Segovia 025 6:25 PM EDT [facility] Device ID [id number] 07/10/2025 6:25 PM EDT [facility] Specimen Type POC Capillary 07/10/2025 6:25 PM EDT [facility] Blood Capillary blood specimen / Unknown 07/10/2025 6:22 PM EDT 07/10/2025 6:25 PM EDT us Luanne Crawford MD LAB POINT OF CARE TEST DOCKED DEVICE UNSOLICITED RESULTS Final Result Performing Organization Address City/[facility]/ZIP Co de Phone Number [facility] [address] [place] [address] * (ABNORMAL) POCT glucose meter (07/10/2025 2:17 PM EDT) POCT Glucose 145(H) 74 - 99 mg/dL 07/10/2025 2:19 PM EDT [facility] Comment:Accuracy of a glucos e result obtained from a capillary whole blood specimen relies upon adequate, non-compromised capillary blood flow. If the capillary glucose result is not consistent with the patient's clinical signs and symptoms, glucose testing should be repeated with either an arterial or venous sample on the glucometer or sent to the main labortory for testing. Comment 07/10/2025 2:19 PM EDT [facility] Agriculture Teacher ID Zara Segovia F 025 2:19 PM EDT [facility] Device ID [id number] 07/10/2025 2:19 PM EDT [facility] Specimen Type POC Arterial 07/10/2025 2:19 PM EDT [facility] Blood Arterial blood specimen / Unknown 07/10/2025 2:17 PM EDT 07/10/2025 2:19 PM EDT us Luanne Crawford MD LAB POINT OF CARE TEST DOCKED DEVICE UNSOLICITED RESULTS Final Result Performing Organization Address City/State/[facility] Co de Phone Number [facility] [address] [place] [address] * XR Abdomen 1 View (07/10/2025 12:03 PM EDT) Anatomical Region Laterality Modality Body Digital Radiogra phy Impressions 07/10/2025 12:32 PM EDT The tip of the nasogastric tube is within the mid stomach. CRITICAL RESULT: No. COMMUNICATION: Per this written report. Drafted by Bernabe Sen MD on 07/10/2025 12:32 PM Final report signed by Bernabe Sen MD on 07/10/2025 12:32 PM Narrative 07/10/2025 12:32 PM EDT CLINICAL INDICATION: feeding tube placement TECHNIQUE: Supine radiograph of the abdomen. COMPARISON: None. FINDINGS: Limited [id number] abdominal radiograph for the purpose of locating tube position. The tip of the nasogastric tube is within the mid stomach. Procedure Note Bernabe Sen MD - 07/10/2025 CLINICAL INDICATION: feeding tube placement TECHNIQUE: Supine radiograph of the abdomen. COMPARISON: None. FINDINGS: Limited [id number] abdominal radiograph for the purpose of locatingtube position. The tip of the nasogastric tube is within the mid stomach. IMPRESSION: The tip of the nasogastric tube is within the mid stomach. CRITICAL RESULT: No. COMMUNICATION: Per this written report. Drafted by Bernabe Sen MD on 07/10/2025 12:32 PM Final report signed by Bernabe Sen MD on 07/10/2025 12:32 PM Luanne Crawford MD IMG XR PROCEDURES Final Re sult * (ABNORMAL) POCT glucose meter (07/10/2025 12:00 PM EDT) Pathologist [facility] POCT Glucose 140(H) 74 - 99 mg/dL 07/10/2025 12:02 PM EDT [facility] Comment:Accuracy of a glucos e result obtained from a capillary whole blood specimen relies upon adequate, non-compromised capillary blood flow. If the capillary glucose result is not consistent with the patient's clinical signs and symptoms, glucose testing should be repeated with either an arterial or venous sample on the glucometer or sent to the main labortory for testing. Comment 07/10/2025 12:02 PM EDT [facility] Agriculture Teacher ID Segovia, Symantha F 025 12:02 PM EDT [facility] Device ID [id number] 07/10/2025 12:02 PM EDT [facility] Specimen Type POC Arterial 07/10/2025 12:02 PM EDT [facility] Blood Arterial blood specimen / Unknown 07/10/2025 12:00 PM EDT 07/10/2025 12:02 PM EDT Luanne Crawford MD LAB POINT OF CARE TEST DOCKED DEVICE UNSOLICITED RESULTS Final Result [facility] [address] [place] [address] * (ABNORMAL) POCT glucose meter (07/10/2025 9:50 AM EDT) Pathologist [facility] POCT Glucose 134(H) 74 - 99 mg/dL 07/10/2025 9:52 AM EDT [facility] Comment:Accuracy of a glucos e result obtained from a capillary whole blood specimen relies upon adequate, non-compromised capillary blood flow. If the capillary glucose result is not consistent with the patient's clinical signs and symptoms, glucose testing should be repeated with either an arterial or venous sample on the glucometer or sent to the main labortory for testing. Comment 07/10/2025 9:52 AM EDT [facility] Agriculture Teacher ID Zara Segovia 025 9:52 AM EDT [facility] Device ID [id number] 07/10/2025 9:52 AM EDT [facility] Specimen Type POC Arterial 07/10/2025 9:52 AM EDT [facility] Blood Arterial blood specimen / Unknown 07/10/2025 9:50 AM EDT 07/10/2025 9:52 AM EDT us Luanne Crawford MD LAB POINT OF CARE TEST DOCKED DEVICE UNSOLICITED RESULTS Final Result Performing Organization Address City/State/[facility] Co de Phone Number [facility] [address] [place] [address] * ECG Adult (07/10/2025 8:42 AM EDT) [facility] EKG DIAGNOSIS CLASS Abnormal MUSE ECG Ventricular Rate 79 BPM MUSE ECG Atrial Rate 79 BPM MUSE ECG UT Interval 188 ms MUSE ECG QRSD Interval 90 ms MUSE ECG QT Interval 354 ms MUSE ECG QTC Interval 405 ms MUSE ECG P [place] 44 degrees MUSE ECG R [place] 17 degrees MUSE ECG T Wave [place] 27 degrees MUSE ECG Diagnosis Sinus rhythm with frequent premature ventricular complexes MUSE ECG Diagnosis Low voltage QRS MUSE ECG Diagnosis Cannot rule out Anterior infarct , age undetermined MUSE ECG Diagnosis MUSE ECG Diagnosis MUSE ECG Diagnosis Confirmed by Octavio Walsh ([id number]) on 07/10/2025 11:49:20 AM MUSE ECG 07/10/2025 8:42 AM EDT 07/10/2025 11:49 AM EDT us Luanne Crawford MD ECG ORDERABLES Final Resu lt MUSE ECG * [facility], E/M 30-74 MINUTES (07/10/2025 8:15 AM EDT) Narrative Dorcas Hennessy MD - 07/10/2025 8:15 AM EDT Dorcas Hennessy MD 07/18/2025 7:20 PM Critical Care Performed by: Dorcas Hennessy MD Authorized by: Dorcas Hennessy MD Critical care provider statement: Critical care time (minutes): 45 Critical care time was exclusive of: Separately billable procedures and treating other patients and teaching time Critical care was time spent personally by me on the following activities: Development of treatment plan with patient or surrogate, discussions with primary provider, evaluation of patient's response to treatment, examination of patient, ordering and performing treatments and interventions, ordering and review of laboratory studies, ordering and review of radiographic studies and ventilator management I assumed subsequent critical care for this patient from a provider in my division, on the same day: no Comments: I saw and evaluated the patient. I discussed the case with the medical student and resident/fellow and agree with the findings and plan as documented. I personally participated in the management of the patient. I evaluated and treated the patient multiple times throughout the day, starting at 6:30 AM. The patient remains critically ill requiring ongoing life and organ-supporting interventions. Remains intubated and on pressors. Will wean pressors as able. OR today for wound exploration. Will attempt to extubate post-op if appropriate. Dorcas Hennessy MD, PhD Acute Care Surgery, Trauma and Surgical Critical Care us Dorcas Hennessy MD IN CLINIC/BEDSIDE ORDERABLES Fin al Result * (ABNORMAL) POCT glucose meter (07/10/2025 8:04 AM EDT) [facility] POCT Glucose 163(H) 74 - 99 mg/dL 07/10/2025 9:22 AM EDT [facility] Comment:Accuracy of a glucos e result obtained from a capillary whole blood specimen relies upon adequate, non-compromised capillary blood flow. If the capillary glucose result is not consistent with the patient's clinical signs and symptoms, glucose testing should be repeated with either an arterial or venous sample on the glucometer or sent to the main labortory for testing. Comment 07/10/2025 9:22 AM EDT [facility] Agriculture Teacher ID Zara Segovia 025 9:22 AM EDT [facility]ALTH[facility] LAB Device ID [id number] 07/10/2025 9:22 AM EDT [facility]ALTH[facility] Specimen Type POC Arterial 07/10/2025 9:22 AM EDT [facility] Blood Arterial blood specimen / Unknown 07/10/2025 8:04 AM EDT 07/10/2025 9:22 AM EDT us Luanne Crawford MD LAB POINT OF CARE TEST DOCKED DEVICE UNSOLICITED RESULTS Final Result Performing Organization Address City/State/[facility] Co de Phone Number [facility]ALTHCARE LAB [address] [place] [address] * (ABNORMAL) POCT glucose meter (07/10/2025 6:04 AM EDT) [facility] POCT Glucose 187(H) 74 - 99 mg/dL 07/10/2025 6:05 AM EDT [facility] Comment:Accuracy of a glucos e result obtained from a capillary whole blood specimen relies upon adequate, non-compromised capillary blood flow. If the capillary glucose result is not consistent with the patient's clinical signs and symptoms, glucose testing should be repeated with either an arterial or venous sample on the glucometer or sent to the main labortory for testing. Comment 07/10/2025 6:05 AM EDT HEALTHCARE LAB Agriculture Teacher ID Cheyanne Briceño 07/10/2025 6:05 AM EDT HEALTHCARE LAB Device ID [id number] 07/10/2025 6:05 AM EDT [facility]ALTHCARE LAB Specimen Type POC Arterial 07/10/2025 6:05 AM EDT [facility] LAB Blood Arterial blood specimen / Unknown 07/10/2025 6:04 AM EDT 07/10/2025 6:05 AM EDT us Luanne Crawford MD LAB POINT OF CARE TEST DOCKED DEVICE UNSOLICITED RESULTS Final Result Performing Organization Address [facility] Co de Phone Number [facility] [address] [place] [address] * (ABNORMAL) POCT glucose meter (07/10/2025 3:59 AM EDT) [facility] POCT Glucose 153(H) 74 - 99 mg/dL 07/10/2025 4:01 AM EDT [facility] Comment:Accuracy of a glucos e result obtained from a capillary whole blood specimen relies upon adequate, non-compromised capillary blood flow. If the capillary glucose result is not consistent with the patient's clinical signs and symptoms, glucose testing should be repeated with either an arterial or venous sample on the glucometer or sent to the main labortory for testing. Comment 07/10/2025 4:01 AM EDT HEALTHCARE LAB Agriculture Teacher ID Cheyanne Briceño 07/10/2025 4:01 AM EDT HEALTHCARE LAB Device ID [id number] 07/10/2025 4:01 AM EDT [facility] Specimen Type POC Arterial 07/10/2025 4:01 AM EDT [facility] Blood Arterial blood specimen / Unknown 07/10/2025 3:59 AM EDT 07/10/2025 4:01 AM EDT Luanne Crawford MD LAB POINT OF CARE TEST DOCKED DEVICE UNSOLICITED RESULTS Final Result Performing Organization Address [facility] Co de Phone Number [facility] [address] [place] [address] * (ABNORMAL) POCT glucose meter (07/10/2025 3:01 AM EDT) [facility] POCT Glucose 165(H) 74 - 99 mg/dL 07/10/2025 3:03 AM EDT [facility] Comment:Accuracy of a glucos e result obtained from a capillary whole blood specimen relies upon adequate, non-compromised capillary blood flow. If the capillary glucose result is not consistent with the patient's clinical signs and symptoms, glucose testing should be repeated with either an arterial or venous sample on the glucometer or sent to the main labortory for testing. Comment 07/10/2025 3:03 AM EDT [facility] Agriculture Teacher ID Cheyanne Briceño Morris 07/10/2025 3:03 AM EDT HEALTHCARE LAB Device ID [id number] 07/10/2025 3:03 AM EDT [facility]ALTHCARE LAB Specimen Type POC Arterial 07/10/2025 3:03 AM EDT [facility] Blood Arterial blood specimen / Unknown 07/10/2025 3:01 AM EDT 07/10/2025 3:03 AM EDT Luanne Crawford MD LAB POINT OF CARE TEST DOCKED DEVICE UNSOLICITED RESULTS Final Result Performing Organization Address City/[facility] Co de Phone Number [facility]ARE [facility] [address] [place] [address] * (ABNORMAL) POCT glucose meter (07/10/2025 2:03 AM EDT) POCT Glucose 180(H) 74 - 99 mg/dL 07/10/2025 2:04 AM EDT [facility] Comment:Accuracy of a glucos e result obtained from a capillary whole blood specimen relies upon adequate, non-compromised capillary blood flow. If the capillary glucose result is not consistent with the patient's clinical signs and symptoms, glucose testing should be repeated with either an arterial or venous sample on the glucometer or sent to the main labortory for testing. Comment 07/10/2025 2:04 AM EDT [facility]ALTHCARE LAB Agriculture Teacher ID Cheyanne Briceño 07/10/2025 2:04 AM EDT HEALTHCARE LAB Device ID [id number] 07/10/2025 2:04 AM EDT [facility] LAB Specimen Type POC Arterial 07/10/2025 2:04 AM EDT [facility] Blood Arterial blood specimen / Unknown 07/10/2025 2:03 AM EDT 07/10/2025 2:04 AM EDT us Luanne Crawford MD LAB POINT OF CARE TEST DOCKED DEVICE UNSOLICITED RESULTS Final Result Performing Organization Address City/[facility] Co de Phone Number [facility] [address] [place] [address] * (ABNORMAL) POCT glucose meter (07/10/2025 12:59 AM EDT) POCT Glucose 158(H) 74 - 99 mg/dL 07/10/2025 1:00 AM EDT [facility] Comment:Accuracy of a glucos e result obtained from a capillary whole blood specimen relies upon adequate, non-compromised capillary blood flow. If the capillary glucose result is not consistent with the patient's clinical signs and symptoms, glucose testing should be repeated with either an arterial or venous sample on the glucometer or sent to the main labortory for testing. Comment 07/10/2025 1:00 AM EDT [facility]ALTHCARE LAB Agriculture Teacher ID Cheyanne Briceño 07/10/2025 1:00 AM EDT HEALTHCARE LAB Device ID [id number] 07/10/2025 1:00 AM EDT [facility]ARE LAB Specimen Type POC Arterial 07/10/2025 1:00 AM EDT [facility] Blood Arterial blood specimen / Unknown 07/10/2025 12:59 AM EDT 07/10/2025 1:00 AM EDT us Luanne Crawford MD LAB POINT OF CARE TEST DOCKED DEVICE UNSOLICITED RESULTS Final Result Performing Organization Address City/[facility]/ZIP Co de Phone Number [facility] [address] [place] [address] * Phosphorus (07/10/2025 12:03 AM EDT) Phosphorus, Plasma 4.2 2.5 - 4.5 mg/dL 07/10/2025 12:40 AM EDT [facility] Blood Arterial blood specimen / Unknown Venipuncture / Unknown 07/10/2025 12:03 AM EDT 07/10/2025 12:10 AM EDT us Luanne Crawford MD LAB BLOOD ORDERABLES Final Result [facility] [address] [place] [address] * Magnesium, Plasma (07/10/2025 12:03 AM EDT) Magnesium, Plasma 2.1 1.9 - 2.4 mg/dL 07/10/2025 12:40 AM EDT [facility] Blood Arterial blood specimen / Unknown Venipuncture / Unknown 07/10/2025 12:03 AM EDT 07/10/2025 12:10 AM EDT us Luanne Crawford MD LAB BLOOD ORDERABLES Final Result [facility] [address] [place] [address] * (ABNORMAL) Basic Metabolic Panel, Plasma (07/10/2025 12:03 AM EDT) Glucose, Plasma 155(H) 74 - 99 mg/dL 07/10/2025 12:40 AM EDT [facility] BUN, Plasma 22(H) 7 - 21 mg/dL 07/10/2025 12:40 AM EDT [facility] Creatinine, Plasma 1.25(H) 0.60 - 1.10 mg/dL 07/10/2025 12:40 AM EDT [facility] BUN/Creatinine Ratio 18 07/10/2025 12:40 AM EDT [facility] Sodium, Plasma 134(L) 136 - 145 mmol/L 07/10/2025 12:40 AM EDT [facility] Potassium, Plasma 3.7 3.6 - 4.9 mmol/L 07/10/2025 12:40 AM EDT [facility] Chloride, Plasma 101 97 - 107 mmol/L 07/10/2025 12:40 AM EDT [facility] CO2, Plasma 25 22 - 29 mmol/L 07/10/2025 12:40 AM EDT [facility] Anion Gap 8 6 - 16 mmol/L 07/10/2025 12:40 AM EDT [facility] Total Calcium, Plasma 9.3 8.9 - 10.2 mg/dL 07/10/2025 12:40 AM EDT [facility] eGFRcr 52.9 mL/min/1.7 3m*2 07/10/2025 12:40 AM EDT [facility] Comment:Reported eGFRcr in m L/min/1.73m2 is based the CKD-EPI 2020 equation that does not use a race coefficient. Blood Arterial blood specimen / Unknown Venipuncture / Unknown 07/10/2025 12:03 AM EDT 07/10/2025 12:10 AM EDT us Luanne Crawford MD LAB BLOOD ORDERABLES Final Result [facility] [address] [place] [address] * (ABNORMAL) CBC W/O Differential (07/10/2025 12:03 AM EDT) WBC Count 17.64(H) 3.70 - 10.30 10*3/uL LAB HEMATOLOGY METHOD 07/10/2025 12:22 AM EDT [facility] RBC Count 3.83(L) 3.90 - 5.20 10*6/uL LAB HEMATOLOGY METHOD 07/10/2025 12:22 AM EDT [facility] HGB 10.6(L) 11.2 - 15.7 g/dL LAB HEMATOLOGY METHOD 07/10/2025 12:22 AM EDT [facility] HCT 33.3(L) 34.0 - 45.0 % LAB HEMATOLOGY METHOD 07/10/2025 12:22 AM EDT [facility] Platelet Count 309 155 - 369 10*3/uL LAB HEMATOLOGY METHOD 07/10/2025 12:22 AM EDT [facility] MCV 87 79 - 98 fL LAB HEMATOLOGY METHOD 07/10/2025 12:22 AM EDT [facility] MCH 27.7 26.0 - 32.0 pg LAB HEMATOLOGY METHOD 07/10/2025 12:22 AM EDT [facility] MCHC 31.8 30.7 - 35.5 g/dL LAB HEMATOLOGY METHOD 07/10/2025 12:22 AM EDT [facility] RDW 17.9(H) 11.5 - 14.5 % LAB HEMATOLOGY METHOD 07/10/2025 12:22 AM EDT [facility] MPV 10.3 8.8 - 12.5 fL LAB HEMATOLOGY METHOD 07/10/2025 12:22 AM EDT [facility] nRBC 0.0 <=0.0 per 100 WBCs LAB HEMATOLOGY METHOD 07/10/2025 12:22 AM EDT [facility] Blood Arterial blood specimen / Unknown Venipuncture / Unknown 07/10/2025 12:03 AM EDT 07/10/2025 12:11 AM EDT us Luanne Crawford MD LAB BLOOD ORDERABLES Final Result Performing Organization Address City/[facility]/ZIP Co de Phone Number [facility] [address] [place] [address] * (ABNORMAL) POCT glucose meter (07/10/2025 12:02 AM EDT) POCT Glucose 142(H) 74 - 99 mg/dL 07/10/2025 12:04 AM EDT [facility] Comment:Accuracy of a glucos e result obtained from a capillary whole blood specimen relies upon adequate, non-compromised capillary blood flow. If the capillary glucose result is not consistent with the patient's clinical signs and symptoms, glucose testing should be repeated with either an arterial or venous sample on the glucometer or sent to the main labortory for testing. Comment 07/10/2025 12:04 AM EDT HEALTHCARE LAB Agriculture Teacher ID Cheyanne Briceño 07/10/2025 12:04 AM EDT HEALTHCARE LAB Device ID [id number] 07/10/2025 12:04 AM EDT [facility]ALTHCARE LAB Specimen Type POC Arterial 07/10/2025 12:04 AM EDT [facility] Blood Arterial blood specimen / Unknown 07/10/2025 12:02 AM EDT 07/10/2025 12:04 AM EDT us Luanne Crawford MD LAB POINT OF CARE TEST DOCKED DEVICE UNSOLICITED RESULTS Final Result [facility] [address] [place] [address] * (ABNORMAL) POCT glucose meter (07/09/2025 10:01 PM EDT) POCT Glucose 183(H) 74 - 99 mg/dL 07/09/2025 10:04 PM EDT [facility] Comment:Accuracy of a glucos e result obtained from a capillary whole blood specimen relies upon adequate, non-compromised capillary blood flow. If the capillary glucose result is not consistent with the patient's clinical signs and symptoms, glucose testing should be repeated with either an arterial or venous sample on the glucometer or sent to the main labortory for testing. Comment 07/09/2025 10:04 PM EDT [facility] Agriculture Teacher ID Cheyanne Briceño 07/09/2025 10:04 PM EDT [facility] Device ID [id number] 07/09/2025 10:04 PM EDT [facility]ALTH[facility] Specimen Type POC Arterial 07/09/2025 10:04 PM EDT [facility] Blood Arterial blood specimen / Unknown 07/09/2025 10:01 PM EDT 07/09/2025 10:04 PM EDT us Luanne Crawford MD LAB POINT OF CARE TEST DOCKED DEVICE UNSOLICITED RESULTS Final Result Performing Organization Address [facility] de Phone Number HEALTHCARE LAB [address] [place] [address] * (ABNORMAL) POCT glucose meter (07/09/2025 8:09 PM EDT) POCT Glucose 188(H) 74 - 99 mg/dL 07/09/2025 8:11 PM EDT [facility] Comment:Accuracy of a glucos e result obtained from a capillary whole blood specimen relies upon adequate, non-compromised capillary blood flow. If the capillary glucose result is not consistent with the patient's clinical signs and symptoms, glucose testing should be repeated with either an arterial or venous sample on the glucometer or sent to the main labortory for testing. Comment 07/09/2025 8:11 PM EDT [facility] Agriculture Teacher ID Cheyanne Briceño 07/09/2025 8:11 PM EDT HEALTH[facility]ARE LAB Device ID [id number] 07/09/2025 8:11 PM EDT [facility] Specimen Type POC Capillary 07/09/2025 8:11 PM EDT [facility] Blood Capillary blood specimen / Unknown 07/09/2025 8:09 PM EDT 07/09/2025 8:11 PM EDT us Luanne Crawford MD LAB POINT OF CARE TEST DOCKED DEVICE UNSOLICITED RESULTS Final Result Performing Organization Address City/[facility] Co de Phone Number [facility]ARE [facility] [address] [place] [address] * (ABNORMAL) POCT glucose meter (07/09/2025 6:22 PM EDT) [facility] POCT Glucose 151(H) 74 - 99 mg/dL 07/09/2025 6:24 PM EDT [facility] Comment:Accuracy of a glucos e result obtained from a capillary whole blood specimen relies upon adequate, non-compromised capillary blood flow. If the capillary glucose result is not consistent with the patient's clinical signs and symptoms, glucose testing should be repeated with either an arterial or venous sample on the glucometer or sent to the main labortory for testing. Comment 07/09/2025 6:24 PM EDT [facility]ALTHCARE LAB Agriculture Teacher ID Marianela Jeana 07/09/2025 6:24 PM EDT HEALTHCARE LAB Device ID [id number] 07/09/2025 6:24 PM EDT [facility]ALTH[facility]ARE LAB Specimen Type POC Capillary 07/09/2025 6:24 PM EDT [facility] Blood Capillary blood specimen / Unknown 07/09/2025 6:22 PM EDT 07/09/2025 6:24 PM EDT Luanne Crawford MD LAB POINT OF CARE TEST DOCKED DEVICE UNSOLICITED RESULTS Final Result [facility] [address] [place] [address] * (ABNORMAL) POCT glucose meter (07/09/2025 4:06 PM EDT) [facility] POCT Glucose 144(H) 74 - 99 mg/dL 07/09/2025 4:07 PM EDT [facility] Comment:Accuracy of a glucos e result obtained from a capillary whole blood specimen relies upon adequate, non-compromised capillary blood flow. If the capillary glucose result is not consistent with the patient's clinical signs and symptoms, glucose testing should be repeated with either an arterial or venous sample on the glucometer or sent to the main labortory for testing. Comment 07/09/2025 4:07 PM EDT [facility] Agriculture Teacher ID Marianela Jeana 07/09/2025 4:07 PM EDT [facility] Device ID [id number] 07/09/2025 4:07 PM EDT [facility] Specimen Type POC Capillary 07/09/2025 4:07 PM EDT [facility] Blood Capillary blood specimen / Unknown 07/09/2025 4:06 PM EDT 07/09/2025 4:07 PM EDT us Luanne Crawford MD LAB POINT OF CARE TEST DOCKED DEVICE UNSOLICITED RESULTS Final Result [facility] [address] [place] [address] * (ABNORMAL) Blood gas, arterial (07/09/2025 3:16 PM EDT) pH, Arterial 7.31(L) 7.35 - 7.45 LAB HEMATOLOGY METHOD 07/09/2025 3:40 PM EDT [facility] pCO2, Arterial 53(H) 35 - 48 mmHg LAB HEMATOLOGY METHOD 07/09/2025 3:40 PM EDT [facility] pO2, Arterial 153(H) 83 - 108 mmHg LAB HEMATOLOGY METHOD 07/09/2025 3:40 PM EDT [facility] SO2, Measured, Arterial 100(H) 94 - 98 % LAB HEMATOLOGY METHOD 07/09/2025 3:40 PM EDT [facility] Base Excess, Arterial -0.4 -2.0 - 3.0 mmol/L LAB HEMATOLOGY METHOD 07/09/2025 3:40 PM EDT [facility] Bicarbonate, Calculated, Arterial 26 22 - 26 mmol/L LAB HEMATOLOGY METHOD 07/09/2025 3:40 PM EDT [facility] Hematocrit, Whole Blood 30.6(L) 34.0 - 45.0 % LAB HEMATOLOGY METHOD 07/09/2025 3:40 PM EDT [facility] Sodium, Whole Blood 141 136 - 145 mmol/L LAB HEMATOLOGY METHOD 07/09/2025 3:40 PM EDT [facility] Potassium, Whole Blood 3.4(L) 3.6 - 4.9 mmol/L LAB HEMATOLOGY METHOD 07/09/2025 3:40 PM EDT [facility] Chloride, Whole Blood 107 97 - 107 mmol/L LAB HEMATOLOGY METHOD 07/09/2025 3:40 PM EDT [facility] Glucose, Whole Blood 141(H) 74 - 99 mg/dL LAB HEMATOLOGY METHOD 07/09/2025 3:40 PM EDT [facility] Ionized Calcium, Whole Blood 4.9 4.6 - 5.1 mg/dL LAB HEMATOLOGY METHOD 07/09/2025 3:40 PM EDT [facility] Lactate, Arterial, Whole Blood 0.9 0.5 - 1.6 mmol/L LAB HEMATOLOGY METHOD 07/09/2025 3:40 PM EDT [facility] Blood Arterial blood specimen / Unknown Arterial Line / Unknown 07/09/2025 3:16 PM EDT 07/09/2025 3:38 PM EDT us Luanne Crawford MD LAB BLOOD ORDERABLES Final Result Performing Organization Address City/State/[facility] Co de Phone Number [facility] [address] [place] [address] * (ABNORMAL) POCT glucose meter (07/09/2025 3:01 PM EDT) POCT Glucose 135(H) 74 - 99 mg/dL 07/09/2025 3:03 PM EDT [facility] Comment:Accuracy of a glucos e result obtained from a capillary whole blood specimen relies upon adequate, non-compromised capillary blood flow. If the capillary glucose result is not consistent with the patient's clinical signs and symptoms, glucose testing should be repeated with either an arterial or venous sample on the glucometer or sent to the main labortory for testing. Comment 07/09/2025 3:03 PM EDT [facility]ALTH[facility]ARE LAB Agriculture Teacher ID Jeana Bear 07/09/2025 3:03 PM EDT HEALTHCARE LAB Device ID [id number] 07/09/2025 3:03 PM EDT [facility] Specimen Type POC Capillary 07/09/2025 3:03 PM EDT [facility] Blood Capillary blood specimen / Unknown 07/09/2025 3:01 PM EDT 07/09/2025 3:03 PM EDT us Luanne Crawford MD LAB POINT OF CARE TEST DOCKED DEVICE UNSOLICITED RESULTS Final Result [facility] [address] [place] [address] * (ABNORMAL) POCT glucose meter (07/09/2025 1:57 PM EDT) [facility] POCT Glucose 115(H) 74 - 99 mg/dL 07/09/2025 1:59 PM EDT [facility] Comment:Accuracy of a glucos e result obtained from a capillary whole blood specimen relies upon adequate, non-compromised capillary blood flow. If the capillary glucose result is not consistent with the patient's clinical signs and symptoms, glucose testing should be repeated with either an arterial or venous sample on the glucometer or sent to the main labortory for testing. Comment 07/09/2025 1:59 PM EDT [facility]ALTHCARE LAB Agriculture Teacher ID Jeana Bear 07/09/2025 1:59 PM EDT HEALTHCARE LAB Device ID [id number] 07/09/2025 1:59 PM EDT [facility] Specimen Type POC Capillary 07/09/2025 1:59 PM EDT [facility] Blood Capillary blood specimen / Unknown 07/09/2025 1:57 PM EDT 07/09/2025 1:59 PM EDT us Luanne Crawford MD LAB POINT OF CARE TEST DOCKED DEVICE UNSOLICITED RESULTS Final Result Performing Organization Address City/[facility]/ZIP Co de Phone Number [facility] [address] [place] [address] * Phosphorus (07/09/2025 1:21 PM EDT) [facility] Phosphorus, Plasma 4.2 2.5 - 4.5 mg/dL 07/09/2025 2:49 PM EDT [facility] Blood Arterial blood specimen / Unknown Arterial Line / Unknown 07/09/2025 1:21 PM EDT 07/09/2025 2:01 PM EDT us Luanne Crawford MD LAB BLOOD ORDERABLES Final Result Performing Organization Address City/[facility]/ZIP Co de Phone Number [facility] [address] [place] [address] * Magnesium (07/09/2025 1:21 PM EDT) Magnesium, Plasma 2.3 1.9 - 2.4 mg/dL 07/09/2025 2:49 PM EDT [facility] Blood Arterial blood specimen / Unknown Arterial Line / Unknown 07/09/2025 1:21 PM EDT 07/09/2025 2:01 PM EDT us Luanne Crawford MD LAB BLOOD ORDERABLES Final Result [facility] [address] [place] [address] * (ABNORMAL) Basic metabolic panel (07/09/2025 1:21 PM EDT) Glucose, Plasma 100(H) 74 - 99 mg/dL 07/09/2025 2:49 PM EDT [facility] BUN, Plasma 26(H) 7 - 21 mg/dL 07/09/2025 2:49 PM EDT [facility] Creatinine, Plasma 1.42(H) 0.60 - 1.10 mg/dL 07/09/2025 2:49 PM EDT [facility] BUN/Creatinine Ratio 18 07/09/2025 2:49 PM EDT [facility] Sodium, Plasma 140 136 - 145 mmol/L 07/09/2025 2:49 PM EDT [facility] Potassium, Plasma 3.7 3.6 - 4.9 mmol/L 07/09/2025 2:49 PM EDT [facility] Chloride, Plasma 104 97 - 107 mmol/L 07/09/2025 2:49 PM EDT [facility] CO2, Plasma 24 22 - 29 mmol/L 07/09/2025 2:49 PM EDT [facility] Anion Gap 12 6 - 16 mmol/L 07/09/2025 2:49 PM EDT [facility] Total Calcium, Plasma 9.1 8.9 - 10.2 mg/dL 07/09/2025 2:49 PM EDT [facility] eGFRcr 45.4 mL/min/1.7 3m*2 07/09/2025 2:49 PM EDT [facility] Comment:Reported eGFRcr in m L/min/1.73m2 is based the CKD-EPI 2020 equation that does not use a race coefficient. Blood Arterial blood specimen / Unknown Arterial Line / Unknown 07/09/2025 1:21 PM EDT 07/09/2025 2:01 PM EDT us Luanne Crawford MD LAB BLOOD ORDERABLES Final Result [facility] [address] [place] [address] * (ABNORMAL) POCT glucose meter (07/09/2025 1:20 PM EDT) POCT Glucose 103(H) 74 - 99 mg/dL 07/09/2025 1:22 PM EDT [facility] Comment:Accuracy of a glucos e result obtained from a capillary whole blood specimen relies upon adequate, non-compromised capillary blood flow. If the capillary glucose result is not consistent with the patient's clinical signs and symptoms, glucose testing should be repeated with either an arterial or venous sample on the glucometer or sent to the main labortory for testing. Comment 07/09/2025 1:22 PM EDT [facility] Agriculture Teacher ID Jeana Bear 07/09/2025 1:22 PM EDT [facility]ALTH[facility]ARE LAB Device ID [id number] 07/09/2025 1:22 PM EDT [facility] Specimen Type POC Arterial 07/09/2025 1:22 PM EDT [facility] Blood Arterial blood specimen / Unknown 07/09/2025 1:20 PM EDT 07/09/2025 1:22 PM EDT us Luanne Crawford MD LAB POINT OF CARE TEST DOCKED DEVICE UNSOLICITED RESULTS Final Result [facility] [address] [place] [address] * (ABNORMAL) POCT glucose meter (07/09/2025 12:44 PM EDT) POCT Glucose 110(H) 74 - 99 mg/dL 07/09/2025 12:45 PM EDT [facility] Comment:Accuracy of a glucos e result obtained from a capillary whole blood specimen relies upon adequate, non-compromised capillary blood flow. If the capillary glucose result is not consistent with the patient's clinical signs and symptoms, glucose testing should be repeated with either an arterial or venous sample on the glucometer or sent to the main labortory for testing. Comment 07/09/2025 12:45 PM EDT [facility]ALTH[facility]ARE [facility] Agriculture Teacher ID Jeana Bear 07/09/2025 12:45 PM EDT [facility]ALTH[facility]ARE LAB Device ID [id number] 07/09/2025 12:45 PM EDT [facility] Specimen Type POC Capillary 07/09/2025 12:45 PM EDT [facility] Blood Capillary blood specimen / Unknown 07/09/2025 12:44 PM EDT 07/09/2025 12:45 PM EDT us Luanne Crawford MD LAB POINT OF CARE TEST DOCKED DEVICE UNSOLICITED RESULTS Final Result Performing Organization Address City/State/[facility] Co de Phone Number [facility] [address] [place] [address] * (ABNORMAL) POCT glucose meter (07/09/2025 12:19 PM EDT) [facility] POCT Glucose 62(L) 74 - 99 mg/dL 07/09/2025 12:21 PM EDT [facility] Comment:Accuracy of a glucos e result obtained from a capillary whole blood specimen relies upon adequate, non-compromised capillary blood flow. If the capillary glucose result is not consistent with the patient's clinical signs and symptoms, glucose testing should be repeated with either an arterial or venous sample on the glucometer or sent to the main labortory for testing. Comment 07/09/2025 12:21 PM EDT [facility] Agriculture Teacher ID Jeana Bear 07/09/2025 12:21 PM EDT [facility] Device ID [id number] 07/09/2025 12:21 PM EDT [facility] Specimen Type POC Capillary 07/09/2025 12:21 PM EDT [facility] Blood Capillary blood specimen / Unknown 07/09/2025 12:19 PM EDT 07/09/2025 12:21 PM EDT Luanne Crawford MD LAB POINT OF CARE TEST DOCKED DEVICE UNSOLICITED RESULTS Final Result Performing Organization Address [facility] Co de Phone Number [facility] [address] [place] [address] * Blood Culture (Aerobic/Anaerobet Set) (07/09/2025 10:35 AM EDT) Culture No growth at day 5 KAROLINA 07/14/2025 12:02 PM EDT [facility] Blood Structure of antecubital vein / Unknown Venipuncture / Unknown 07/09/2025 10:35 AM EDT 07/09/2025 10:50 AM EDT us My Charles MD LAB MICROBIOLOGY - GENE RAL ORDERABLES Final Result Performing Organization Address [facility] Phone Number [facility] [address] [place] [address] * Blood Culture (Aerobic/Anaerobet Set) (07/09/2025 10:35 AM EDT) Culture No growth at day 5 KAROLINA 07/14/2025 12:02 PM EDT [facility] Blood Structure of antecubital vein / Unknown Venipuncture / Unknown 07/09/2025 10:35 AM EDT 07/09/2025 10:50 AM EDT My Charles MD LAB MICROBIOLOGY - GENE RAL ORDERABLES Final Result Performing Organization Address [facility] Co de Phone Number [facility] [address] [place] [address] * (ABNORMAL) POCT glucose meter (07/09/2025 10:04 AM EDT) POCT Glucose 114(H) 74 - 99 mg/dL 07/09/2025 10:05 AM EDT [facility] Comment:Accuracy of a glucos e result obtained from a capillary whole blood specimen relies upon adequate, non-compromised capillary blood flow. If the capillary glucose result is not consistent with the patient's clinical signs and symptoms, glucose testing should be repeated with either an arterial or venous sample on the glucometer or sent to the main labortory for testing. Comment 07/09/2025 10:05 AM EDT [facility] Agriculture Teacher ID Jeana Bear 07/09/2025 10:05 AM EDT [facility] Device ID [id number] 07/09/2025 10:05 AM EDT [facility] Specimen Type POC Capillary 07/09/2025 10:05 AM EDT [facility] Blood Capillary blood specimen / Unknown 07/09/2025 10:04 AM EDT 07/09/2025 10:05 AM EDT Luanne Crawford MD LAB POINT OF CARE TEST DOCKED DEVICE UNSOLICITED RESULTS Final Result Performing Organization Address City/[facility]/ZIP Co de Phone Number [facility] [address] [place] [address] * Multi Drug Resistance Test (07/09/2025 9:46 AM EDT) Culture No growth at day 1 07/10/2025 11:58 AM EDT [facility] Swab (Nares and Leann Rectal) Non-blood Collection / Unknown 07/09/2025 9:46 AM EDT 07/09/2025 10:09 AM EDT Narrative [facility] - 07/10/2025 11:58 AM EDT This test was developed and its performance characteristics determined by the [facility]. Although the media is FDA-approved, it is not FDA-approved for all specimen types submitted. The FDA has determined that such clearance or approval is not necessary. This test is used for surveillance purposes. It should not be regarded as investigational or for research. The [facility] is certified under the Clinical Laboratory Improvement Amendments of 1988 (CLIA-88) as qualified to perform high complexity clinical laboratory testing. us Luanne Crawford MD LAB MICROBIOLOGY - GENERAL ORDERABLES Final Result Performing Organization Address City/[facility]/ZIP Co de Phone Number [facility] [address] [place] [address] * (ABNORMAL) Blood gas, arterial (07/09/2025 8:47 AM EDT) pH, Arterial 7.30(L) 7.35 - 7.45 LAB HEMATOLOGY METHOD 07/09/2025 8:55 AM EDT [facility] pCO2, Arterial 53(H) 35 - 48 mmHg LAB HEMATOLOGY METHOD 07/09/2025 8:55 AM EDT [facility] pO2, Arterial 173(H) 83 - 108 mmHg LAB HEMATOLOGY METHOD 07/09/2025 8:55 AM EDT [facility] SO2, Measured, Arterial 98 94 - 98 % LAB HEMATOLOGY METHOD 07/09/2025 8:55 AM EDT [facility] Base Excess, Arterial -0.8 -2.0 - 3.0 mmol/L LAB HEMATOLOGY METHOD 07/09/2025 8:55 AM EDT [facility] Bicarbonate, Calculated, Arterial 26 22 - 26 mmol/L LAB HEMATOLOGY METHOD 07/09/2025 8:55 AM EDT [facility] Hematocrit, Whole Blood 27.3(L) 34.0 - 45.0 % LAB HEMATOLOGY METHOD 07/09/2025 8:55 AM EDT [facility] Sodium, Whole Blood 140 136 - 145 mmol/L LAB HEMATOLOGY METHOD 07/09/2025 8:55 AM EDT [facility] Potassium, Whole Blood 2.9(L) 3.6 - 4.9 mmol/L LAB HEMATOLOGY METHOD 07/09/2025 8:55 AM EDT [facility] Chloride, Whole Blood 106 97 - 107 mmol/L LAB HEMATOLOGY METHOD 07/09/2025 8:55 AM EDT [facility] Glucose, Whole Blood 155(H) 74 - 99 mg/dL LAB HEMATOLOGY METHOD 07/09/2025 8:55 AM EDT [facility] Ionized Calcium, Whole Blood 5.0 4.6 - 5.1 mg/dL LAB HEMATOLOGY METHOD 07/09/2025 8:55 AM EDT [facility] Lactate, Arterial, Whole Blood 1.4 0.5 - 1.6 mmol/L LAB HEMATOLOGY METHOD 07/09/2025 8:55 AM EDT [facility] Blood Arterial blood specimen / Unknown Arterial Line / Unknown 07/09/2025 8:47 AM EDT 07/09/2025 8:54 AM EDT us Dorcas Hennessy MD LAB BLOOD ORDERABLES Final Resul t Performing Organization Address City/[facility] Co de Phone Number [facility] [address] [place] [address] * (ABNORMAL) POCT glucose meter (07/09/2025 8:01 AM EDT) POCT Glucose 200(H) 74 - 99 mg/dL 07/09/2025 8:03 AM EDT [facility] Comment:Accuracy of a glucos e result obtained from a capillary whole blood specimen relies upon adequate, non-compromised capillary blood flow. If the capillary glucose result is not consistent with the patient's clinical signs and symptoms, glucose testing should be repeated with either an arterial or venous sample on the glucometer or sent to the main labortory for testing. Comment 07/09/2025 8:03 AM EDT [facility] Agriculture Teacher ID Jeana Bear 07/09/2025 8:03 AM EDT [facility] Device ID [id number] 07/09/2025 8:03 AM EDT [facility] Specimen Type POC Capillary 07/09/2025 8:03 AM EDT [facility] Blood Capillary blood specimen / Unknown 07/09/2025 8:01 AM EDT 07/09/2025 8:03 AM EDT us Luanne Crawford MD LAB POINT OF CARE TEST DOCKED DEVICE UNSOLICITED RESULTS Final Result Performing Organization Address City/[facility] Co de Phone Number [facility] [address] [place] [address] * [facility] CRITICAL CARE, E/M 30-74 MINUTES (07/09/2025 7:15 AM EDT) Narrative Dorcas Hennessy MD - 07/09/2025 7:15 AM EDT Dorcas Hennessy MD 07/10/2025 1:17 PM Critical Care Performed by: Dorcas Hennessy MD Authorized by: Dorcas Hennessy MD Critical care provider statement: Critical care time (minutes): 45 Critical care time was exclusive of: Separately billable procedures and treating other patients and teaching time Critical care was time spent personally by me on the following activities: Development of treatment plan with patient or surrogate, discussions with primary provider, evaluation of patient's response to treatment, examination of patient, ordering and performing treatments and interventions, ordering and review of laboratory studies, ordering and review of radiographic studies and ventilator management I assumed subsequent critical care for this patient from a provider in my division, on the same day: no Critical care statement: I saw and evaluated the patient with the resident/ fellow. I discussed the case with the resident/ fellow and agree with the findings and plan as documented. us Dorcas Hennessy MD IN CLINIC/BEDSIDE ORDERABLES Fin al Result * (ABNORMAL) POCT glucose meter (07/09/2025 6:05 AM EDT) POCT Glucose 196(H) 74 - 99 mg/dL 07/09/2025 6:20 AM EDT [facility] Comment:Accuracy of a glucos e result obtained from a capillary whole blood specimen relies upon adequate, non-compromised capillary blood flow. If the capillary glucose result is not consistent with the patient's clinical signs and symptoms, glucose testing should be repeated with either an arterial or venous sample on the glucometer or sent to the main labortory for testing. Comment 07/09/2025 6:20 AM EDT [facility] Agriculture Teacher ID Cheyanne Briceño 07/09/2025 6:20 AM EDT [facility] Device ID [id number] 07/09/2025 6:20 AM EDT [facility] Specimen Type POC Arterial 07/09/2025 6:20 AM EDT [facility] Blood Arterial blood specimen / Unknown 07/09/2025 6:05 AM EDT 07/09/2025 6:20 AM EDT us Luanne Crawford MD LAB POINT OF CARE TEST DOCKED DEVICE UNSOLICITED RESULTS Final Result [facility] [address] [place] [address] * (ABNORMAL) Hemoglobin A1c (07/09/2025 4:57 AM EDT) Hemoglobin A1c 7.5(H) <5.7 % 07/09/2025 12:09 PM EDT [facility] Blood Arterial blood specimen / Unknown Venipuncture / Unknown 07/09/2025 4:57 AM EDT 07/09/2025 5:07 AM EDT Narrative [facility] - 07/09/2025 12:09 PM EDT HA1C Interpretive Data: Diagnosis of Diabetes: Diabetic > or = 6.5% Pre-diabetic 5.7 to 6.4% Non-diabetic < or = 5.6% Glycemic Targets for Type I and Type II Diabetics: Non- Adults <7.0% Adults <6.0% Children and Adolescents <7.5% Source: [place] [employer]. Standards of medical care in diabetes,2017. Diabetes Care.2017:40 (suppl 1):S1-S135. us Dorcas Hennessy MD LAB BLOOD ORDERABLES Final Resul t Performing Organization Address City/[facility]/[place] [address] * Phosphorus (07/09/2025 4:57 AM EDT) Phosphorus, Plasma 4.1 2.5 - 4.5 mg/dL 07/09/2025 5:35 AM EDT [facility] Blood Arterial blood specimen / Unknown Venipuncture / Unknown 07/09/2025 4:57 AM EDT 07/09/2025 5:06 AM EDT us Luanne Crawford MD LAB BLOOD ORDERABLES Final Result [facility] [address] [place] [address] * Magnesium, Plasma (07/09/2025 4:57 AM EDT) Magnesium, Plasma 2.2 1.9 - 2.4 mg/dL 07/09/2025 5:35 AM EDT [facility] Blood Arterial blood specimen / Unknown Venipuncture / Unknown 07/09/2025 4:57 AM EDT 07/09/2025 5:06 AM EDT us Luanne Crawford MD LAB BLOOD ORDERABLES Final Result [facility] [address] [place] [address] * (ABNORMAL) Basic Metabolic Panel, Plasma (07/09/2025 4:57 AM EDT) Glucose, Plasma 235(H) 74 - 99 mg/dL 07/09/2025 5:35 AM EDT [facility] BUN, Plasma 30(H) 7 - 21 mg/dL 07/09/2025 5:35 AM EDT [facility] Creatinine, Plasma 1.58(H) 0.60 - 1.10 mg/dL 07/09/2025 5:35 AM EDT [facility] BUN/Creatinine Ratio 19 07/09/2025 5:35 AM EDT [facility] Sodium, Plasma 136 136 - 145 mmol/L 07/09/2025 5:35 AM EDT [facility] Potassium, Plasma 3.5(L) 3.6 - 4.9 mmol/L 07/09/2025 5:35 AM EDT [facility] Chloride, Plasma 101 97 - 107 mmol/L 07/09/2025 5:35 AM EDT [facility] CO2, Plasma 23 22 - 29 mmol/L 07/09/2025 5:35 AM EDT [facility] Anion Gap 12 6 - 16 mmol/L 07/09/2025 5:35 AM EDT [facility] Total Calcium, Plasma 9.2 8.9 - 10.2 mg/dL 07/09/2025 5:35 AM EDT [facility] eGFRcr 40.0 mL/min/1.7 3m*2 07/09/2025 5:35 AM EDT [facility] Comment:Reported eGFRcr in m L/min/1.73m2 is based the CKD-EPI 2020 equation that does not use a race coefficient. Blood Arterial blood specimen / Unknown Venipuncture / Unknown 07/09/2025 4:57 AM EDT 07/09/2025 5:06 AM EDT us Luanne Crawford MD LAB BLOOD ORDERABLES Final Result [facility] [address] [place] [address] * (ABNORMAL) CBC W/O Differential (07/09/2025 4:57 AM EDT) WBC Count 32.25(H) 3.70 - 10.30 10*3/uL LAB HEMATOLOGY METHOD 07/09/2025 5:15 AM EDT [facility] RBC Count 3.89(L) 3.90 - 5.20 10*6/uL LAB HEMATOLOGY METHOD 07/09/2025 5:15 AM EDT [facility] HGB 11.0(L) 11.2 - 15.7 g/dL LAB HEMATOLOGY METHOD 07/09/2025 5:15 AM EDT [facility] HCT 33.4(L) 34.0 - 45.0 % LAB HEMATOLOGY METHOD 07/09/2025 5:15 AM EDT [facility] Platelet Count 358 155 - 369 10*3/uL LAB HEMATOLOGY METHOD 07/09/2025 5:15 AM EDT [facility] MCV 86 79 - 98 fL LAB HEMATOLOGY METHOD 07/09/2025 5:15 AM EDT [facility] MCH 28.3 26.0 - 32.0 pg LAB HEMATOLOGY METHOD 07/09/2025 5:15 AM EDT [facility] MCHC 32.9 30.7 - 35.5 g/dL LAB HEMATOLOGY METHOD 07/09/2025 5:15 AM EDT [facility] RDW 17.4(H) 11.5 - 14.5 % LAB HEMATOLOGY METHOD 07/09/2025 5:15 AM EDT [facility] MPV 10.0 8.8 - 12.5 fL LAB HEMATOLOGY METHOD 07/09/2025 5:15 AM EDT [facility] nRBC 0.0 <=0.0 per 100 WBCs LAB HEMATOLOGY METHOD 07/09/2025 5:15 AM EDT [facility] Blood Arterial blood specimen / Unknown Venipuncture / Unknown 07/09/2025 4:57 AM EDT 07/09/2025 5:07 AM EDT us Luanne Crawford MD LAB BLOOD ORDERABLES Final Result [facility] [address] [place] [address] * (ABNORMAL) POCT glucose meter (07/09/2025 4:03 AM EDT) POCT Glucose 232(H) 74 - 99 mg/dL 07/09/2025 4:05 AM EDT [facility] Comment:Accuracy of a glucos e result obtained from a capillary whole blood specimen relies upon adequate, non-compromised capillary blood flow. If the capillary glucose result is not consistent with the patient's clinical signs and symptoms, glucose testing should be repeated with either an arterial or venous sample on the glucometer or sent to the main labortory for testing. Comment 07/09/2025 4:05 AM EDT [facility] Agriculture Teacher ID Cheyanne Briceño 07/09/2025 4:05 AM EDT [facility] Device ID [id number] 07/09/2025 4:05 AM EDT [facility] Specimen Type POC Arterial 07/09/2025 4:05 AM EDT [facility] Blood Arterial blood specimen / Unknown 07/09/2025 4:03 AM EDT 07/09/2025 4:05 AM EDT us Luanne Crawford MD LAB POINT OF CARE TEST DOCKED DEVICE UNSOLICITED RESULTS Final Result Performing Organization Address City/[facility]/ZIP Co de Phone Number [facility] [address] [place] [address] * XR Chest 1 View (07/09/2025 3:42 AM EDT) Anatomical Region Laterality Modality Chest Digital Radiogra phy Impressions 07/09/2025 4:17 AM EDT Support lines and tubes as above. Low lung volumes with hypoventilatory change. CRITICAL RESULT: No. COMMUNICATION: Per this written report. Drafted by Yenny Live on 07/09/2025 4:16 AM Final report signed by Yenny Live on 07/09/2025 4:17 AM Narrative 07/09/2025 4:17 AM EDT CLINICAL INDICATION: endotracheal tube placement TECHNIQUE: XR CHEST 1 VIEW COMPARISON: None. FINDINGS: Endotracheal tube in place with the tip terminating 6 cm above the chichi. Enteric tube in place which courses below the diaphragm. Right IJ central venous catheter in place with the tip projecting at the superior cavoatrial junction. No pneumothorax. Mildly low lung volumes. Hazy linear opacities within the lower lungs, likely atelectasis. No pleural effusion. The cardiomediastinal silhouette is within normal limits. Procedure Note Yenny Live MD - 07/09/2025 CLINICAL INDICATION: endotracheal tube placement TECHNIQUE: XR CHEST 1 VIEW COMPARISON: None. FINDINGS: Endotracheal tube in place with the tip terminating 6 cm above the chichi.Enteric tube in place which courses below the diaphragm. Right IJ centralvenous catheter in place with the tip projecting at the superiorcavoatrial junction. No pneumothorax. Mildly low lung volumes. Hazy linearopacities within the lower lungs, likely atelectasis. No pleural effusion.The cardiomediastinal silhouette is within normal limits. IMPRESSION: Support lines and tubes as above. Low lung volumes with hypoventilatorychange. CRITICAL RESULT: No. COMMUNICATION: Per this written report. Drafted by Yenny Live on 07/09/2025 4:16 AM Final report signed by Yenny Live on 07/09/2025 4:17 AM us Luanne Crawford MD IMG XR PROCEDURES Final Re sult * (ABNORMAL) POCT glucose meter (07/09/2025 2:15 AM EDT) POCT Glucose 272(H) 74 - 99 mg/dL 07/09/2025 2:17 AM EDT [facility] Comment:Accuracy of a glucos e result obtained from a capillary whole blood specimen relies upon adequate, non-compromised capillary blood flow. If the capillary glucose result is not consistent with the patient's clinical signs and symptoms, glucose testing should be repeated with either an arterial or venous sample on the glucometer or sent to the main labortory for testing. Comment 07/09/2025 2:17 AM EDT [facility] Agriculture Teacher ID Cheyanne Briceño 07/09/2025 2:17 AM EDT [facility] Device ID [id number] 07/09/2025 2:17 AM EDT [facility] Specimen Type POC Arterial 07/09/2025 2:17 AM EDT [facility] Blood Arterial blood specimen / Unknown 07/09/2025 2:15 AM EDT 07/09/2025 2:17 AM EDT us Luanne Crawford MD LAB POINT OF CARE TEST DOCKED DEVICE UNSOLICITED RESULTS Final Result [facility] [address] [place] [address] * (ABNORMAL) Blood gas panel, arterial (07/09/2025 2:11 AM EDT) pH, Arterial 7.25(LL) 7.35 - 7.45 LAB HEMATOLOGY METHOD 07/09/2025 2:23 AM EDT [facility] pCO2, Arterial 56(H) 35 - 48 mmHg LAB HEMATOLOGY METHOD 07/09/2025 2:23 AM EDT [facility] pO2, Arterial 67(L) 83 - 108 mmHg LAB HEMATOLOGY METHOD 07/09/2025 2:23 AM EDT [facility] SO2, Measured, Arterial 91(L) 94 - 98 % LAB HEMATOLOGY METHOD 07/09/2025 2:23 AM EDT [facility] Base Excess, Arterial -2.7(L) -2.0 - 3.0 mmol/L LAB HEMATOLOGY METHOD 07/09/2025 2:23 AM EDT [facility] Bicarbonate, Calculated, Arterial 25 22 - 26 mmol/L LAB HEMATOLOGY METHOD 07/09/2025 2:23 AM EDT [facility] Hematocrit, Whole Blood 31.5(L) 34.0 - 45.0 % LAB HEMATOLOGY METHOD 07/09/2025 2:23 AM EDT [facility] Sodium, Whole Blood 135(L) 136 - 145 mmol/L LAB HEMATOLOGY METHOD 07/09/2025 2:23 AM EDT [facility] Potassium, Whole Blood 3.5(L) 3.6 - 4.9 mmol/L LAB HEMATOLOGY METHOD 07/09/2025 2:23 AM EDT [facility] Chloride, Whole Blood 103 97 - 107 mmol/L LAB HEMATOLOGY METHOD 07/09/2025 2:23 AM EDT [facility] Glucose, Whole Blood 279(H) 74 - 99 mg/dL LAB HEMATOLOGY METHOD 07/09/2025 2:23 AM EDT [facility] Ionized Calcium, Whole Blood 4.9 4.6 - 5.1 mg/dL LAB HEMATOLOGY METHOD 07/09/2025 2:23 AM EDT [facility] Lactate, Arterial, Whole Blood 1.2 0.5 - 1.6 mmol/L LAB HEMATOLOGY METHOD 07/09/2025 2:23 AM EDT [facility] Blood Arterial blood specimen / Unknown Arterial Puncture / Unknown 07/09/2025 2:11 AM EDT 07/09/2025 2:21 AM EDT Luanne Crawford MD LAB BLOOD ORDERABLES Final Result [facility] [address] [place] [address] * (ABNORMAL) POCT glucose meter (07/09/2025 1:22 AM EDT) [facility] POCT Glucose 271(H) 74 - 99 mg/dL 07/09/2025 1:24 AM EDT [facility] Comment:Accuracy of a glucos e result obtained from a capillary whole blood specimen relies upon adequate, non-compromised capillary blood flow. If the capillary glucose result is not consistent with the patient's clinical signs and symptoms, glucose testing should be repeated with either an arterial or venous sample on the glucometer or sent to the main labortory for testing. Comment 07/09/2025 1:24 AM EDT [facility] Agriculture Teacher ID Cheyanne Briceño 07/09/2025 1:24 AM EDT [facility] Device ID [id number] 07/09/2025 1:24 AM EDT [facility] Specimen Type POC Arterial 07/09/2025 1:24 AM EDT [facility] Blood Arterial blood specimen / Unknown 07/09/2025 1:22 AM EDT 07/09/2025 1:24 AM EDT us Luanne Crawford MD LAB POINT OF CARE TEST DOCKED DEVICE UNSOLICITED RESULTS Final Result Performing Organization Address [facility] Co de Phone Number [facility] [address] [place] [address] * (ABNORMAL) POCT glucose meter (07/09/2025 12:06 AM EDT) [facility] POCT Glucose 311(H) 74 - 99 mg/dL 07/09/2025 12:08 AM EDT [facility] Comment:Accuracy of a glucos e result obtained from a capillary whole blood specimen relies upon adequate, non-compromised capillary blood flow. If the capillary glucose result is not consistent with the patient's clinical signs and symptoms, glucose testing should be repeated with either an arterial or venous sample on the glucometer or sent to the main labortory for testing. Comment 07/09/2025 12:08 AM EDT [facility] Agriculture Teacher ID Cheyanne Briceño 07/09/2025 12:08 AM EDT [facility] Device ID [id number] 07/09/2025 12:08 AM EDT [facility] Specimen Type POC Arterial 07/09/2025 12:08 AM EDT [facility] Blood Arterial blood specimen / Unknown 07/09/2025 12:06 AM EDT 07/09/2025 12:08 AM EDT us Luanne Crawford MD LAB POINT OF CARE TEST DOCKED DEVICE UNSOLICITED RESULTS Final Result Performing Organization Address [facility] Co de Phone Number [facility] [address] [place] [address] * APTT (07/08/2025 11:53 PM EDT) [facility] aPTT 25 25 - 35 sec LAB COAGULATION METHOD 07/09/2025 12:32 AM EDT [facility] Blood Venous blood specimen / Unknown Venipuncture / Unknown 07/08/2025 11:53 PM EDT 07/08/2025 11:59 PM EDT us Luanne Crawford MD LAB BLOOD ORDERABLES Final Result Performing Organization Address City/[facility] Co de Phone Number [facility] [address] [place] [address] * (ABNORMAL) Protime-INR (07/08/2025 11:53 PM EDT) Prothrombin Time 15.2(H) 12.0 - 14.3 sec LAB COAGULATION METHOD 07/09/2025 12:32 AM EDT [facility] INR 1.2(H) 0.9 - 1.1 LAB COAGULATION METHOD 07/09/2025 12:32 AM EDT [facility] Blood Venous blood specimen / Unknown Venipuncture / Unknown 07/08/2025 11:53 PM EDT 07/08/2025 11:59 PM EDT Narrative [facility] - 07/09/2025 12:32 AM EDT OPTIMAL INR RANGES FOR PATIENT ON ORAL ANTICOAGULANT THERAPY Prevention of venous thromboembolism INR 2.0 to 3.0 In patients with heart disease: Atrial fibrillation INR 2.0 to 3.0 Valvular heart disease INR 2.0 to 3.0 Tissue heart valves INR 2.0 to 3.0 Mechanical prosthetic valves INR 2.5 to 3.5 Prevention of recurrent KS INR 2.5 to 3.5 us Luanne Crawford MD LAB BLOOD ORDERABLES Final Result [facility] [address] [place] [address] * Phosphorus, Plasma (07/08/2025 11:52 PM EDT) Phosphorus, Plasma 3.6 2.5 - 4.5 mg/dL 07/09/2025 12:27 AM EDT [facility] Blood Venous blood specimen / Unknown Venipuncture / Unknown 07/08/2025 11:52 PM EDT 07/08/2025 11:59 PM EDT Luanne Crawford MD LAB BLOOD ORDERABLES Final Result [facility] [address] [place] [address] * (ABNORMAL) Magnesium, Plasma (07/08/2025 11:52 PM EDT) Magnesium, Plasma 1.8(L) 1.9 - 2.4 mg/dL 07/09/2025 12:27 AM EDT [facility] Blood Venous blood specimen / Unknown Venipuncture / Unknown 07/08/2025 11:52 PM EDT 07/08/2025 11:59 PM EDT us Luanne Crawford MD LAB BLOOD ORDERABLES Final Result [facility] [address] [place] [address] * (ABNORMAL) Basic Metabolic Panel, Plasma (07/08/2025 11:52 PM EDT) Glucose, Plasma 314(H) 74 - 99 mg/dL 07/09/2025 12:27 AM EDT [facility] BUN, Plasma 32(H) 7 - 21 mg/dL 07/09/2025 12:27 AM EDT [facility] Creatinine, Plasma 1.80(H) 0.60 - 1.10 mg/dL 07/09/2025 12:27 AM EDT [facility] BUN/Creatinine Ratio 18 07/09/2025 12:27 AM EDT [facility] Sodium, Plasma 136 136 - 145 mmol/L 07/09/2025 12:27 AM EDT [facility] Potassium, Plasma 3.6 3.6 - 4.9 mmol/L 07/09/2025 12:27 AM EDT [facility] Chloride, Plasma 100 97 - 107 mmol/L 07/09/2025 12:27 AM EDT [facility] CO2, Plasma 23 22 - 29 mmol/L 07/09/2025 12:27 AM EDT [facility] Anion Gap 13 6 - 16 mmol/L 07/09/2025 12:27 AM EDT [facility] Total Calcium, Plasma 8.9 8.9 - 10.2 mg/dL 07/09/2025 12:27 AM EDT [facility] eGFRcr 34.2 mL/min/1.7 3m*2 07/09/2025 12:27 AM EDT [facility] Comment:Reported eGFRcr in m L/min/1.73m2 is based the CKD-EPI 2020 equation that does not use a race coefficient. Blood Venous blood specimen / Unknown Venipuncture / Unknown 07/08/2025 11:52 PM EDT 07/08/2025 11:59 PM EDT us Luanne Crawford MD LAB BLOOD ORDERABLES Final Result [facility] [address] [place] [address] * (ABNORMAL) CBC W/O Differential (07/08/2025 11:52 PM EDT) WBC Count 22.50(H) 3.70 - 10.30 10*3/uL LAB HEMATOLOGY METHOD 07/09/2025 12:16 AM EDT [facility] RBC Count 3.60(L) 3.90 - 5.20 10*6/uL LAB HEMATOLOGY METHOD 07/09/2025 12:16 AM EDT [facility] HGB 10.0(L) 11.2 - 15.7 g/dL LAB HEMATOLOGY METHOD 07/09/2025 12:16 AM EDT [facility] HCT 30.8(L) 34.0 - 45.0 % LAB HEMATOLOGY METHOD 07/09/2025 12:16 AM EDT [facility] Platelet Count 273 155 - 369 10*3/uL LAB HEMATOLOGY METHOD 07/09/2025 12:16 AM EDT [facility] MCV 86 79 - 98 fL LAB HEMATOLOGY METHOD 07/09/2025 12:16 AM EDT [facility] MCH 27.8 26.0 - 32.0 pg LAB HEMATOLOGY METHOD 07/09/2025 12:16 AM EDT [facility] MCHC 32.5 30.7 - 35.5 g/dL LAB HEMATOLOGY METHOD 07/09/2025 12:16 AM EDT [facility] RDW 16.9(H) 11.5 - 14.5 % LAB HEMATOLOGY METHOD 07/09/2025 12:16 AM EDT [facility] MPV 10.3 8.8 - 12.5 fL LAB HEMATOLOGY METHOD 07/09/2025 12:16 AM EDT [facility] nRBC 0.0 <=0.0 per 100 WBCs LAB HEMATOLOGY METHOD 07/09/2025 12:16 AM EDT [facility] Blood Venous blood specimen / Unknown Venipuncture / Unknown 07/08/2025 11:52 PM EDT 07/08/2025 11:59 PM EDT Luanne Crawford MD LAB BLOOD ORDERABLES Final Result Performing Organization Address [facility] [place] [address] * Richie auris Surveillance by PCR (07/08/2025 11:50 PM EDT) Richie auris PCR Result Not Detected Not Detected 07/09/2025 11:26 AM EDT [facility] Swab (Axilla and Groin) Non-blood Collection / Unknown 07/08/2025 11:50 PM EDT 07/09/2025 12:17 AM EDT Narrative [facility] - 07/09/2025 11:26 AM EDT This PCR assay was developed and its performance characteristics determined by [facility] as appropriate for clinical purposes. This assay has not been cleared or approved by the FDA, but is performed in a CLIA regulated laboratory that is qualified to perform high-complexity testing. Luanne Crawford MD LAB MICROBIOLOGY - GENERAL ORDERABLES Final Result Performing Organization Address [facility] [place] [address] * Multi Drug Resistance Test (07/08/2025 11:50 PM EDT) Culture No growth at day 1 07/10/2025 5:45 AM EDT [facility] Swab (Nares and Leann Rectal) Non-blood Collection / Unknown 07/08/2025 11:50 PM EDT 07/09/2025 12:17 AM EDT Narrative [facility] - 07/10/2025 5:45 AM EDT This test was developed and its performance characteristics determined by the [facility]. Although the media is FDA-approved, it is not FDA-approved for all specimen types submitted. The FDA has determined that such clearance or approval is not necessary. This test is used for surveillance purposes. It should not be regarded as investigational or for research. The [facility] is certified under the Clinical Laboratory Improvement Amendments of 1988 (CLIA-88) as qualified to perform high complexity clinical laboratory testing. us Luanne Crawford MD LAB MICROBIOLOGY - GENERAL ORDERABLES Final Result [facility] [address] [place] [address] * (ABNORMAL) Blood gas, arterial (07/08/2025 11:50 PM EDT) pH, Arterial 7.27(L) 7.35 - 7.45 LAB HEMATOLOGY METHOD 07/09/2025 12:00 AM EDT [facility] pCO2, Arterial 53(H) 35 - 48 mmHg LAB HEMATOLOGY METHOD 07/09/2025 12:00 AM EDT [facility] pO2, Arterial 114(H) 83 - 108 mmHg LAB HEMATOLOGY METHOD 07/09/2025 12:00 AM EDT [facility] SO2, Measured, Arterial 99(H) 94 - 98 % LAB HEMATOLOGY METHOD 07/09/2025 12:00 AM EDT [facility] Base Excess, Arterial -3.1(L) -2.0 - 3.0 mmol/L LAB HEMATOLOGY METHOD 07/09/2025 12:00 AM EDT [facility] Bicarbonate, Calculated, Arterial 24 22 - 26 mmol/L LAB HEMATOLOGY METHOD 07/09/2025 12:00 AM EDT [facility] Hematocrit, Whole Blood 31.0(L) 34.0 - 45.0 % LAB HEMATOLOGY METHOD 07/09/2025 12:00 AM EDT [facility] Sodium, Whole Blood 134(L) 136 - 145 mmol/L LAB HEMATOLOGY METHOD 07/09/2025 12:00 AM EDT [facility] Potassium, Whole Blood 3.5(L) 3.6 - 4.9 mmol/L LAB HEMATOLOGY METHOD 07/09/2025 12:00 AM EDT [facility] Chloride, Whole Blood 101 97 - 107 mmol/L LAB HEMATOLOGY METHOD 07/09/2025 12:00 AM EDT [facility] Glucose, Whole Blood 315(H) 74 - 99 mg/dL LAB HEMATOLOGY METHOD 07/09/2025 12:00 AM EDT [facility] Ionized Calcium, Whole Blood 5.1 4.6 - 5.1 mg/dL LAB HEMATOLOGY METHOD 07/09/2025 12:00 AM EDT [facility] Lactate, Arterial, Whole Blood 1.7(H) 0.5 - 1.6 mmol/L LAB HEMATOLOGY METHOD 07/09/2025 12:00 AM EDT [facility] Blood Arterial blood specimen / Unknown Arterial Puncture / Unknown 07/08/2025 11:50 PM EDT 07/08/2025 11:59 PM EDT us Richard Betts CRNA LAB BLOOD ORDERABLES Sarah l Result [facility] [address] [place] [address] * (ABNORMAL) POCT glucose meter (07/08/2025 11:49 PM EDT) [facility] POCT Glucose 316(H) 74 - 99 mg/dL 07/08/2025 11:50 PM EDT [facility] Comment:Accuracy of a glucos e result obtained from a capillary whole blood specimen relies upon adequate, non-compromised capillary blood flow. If the capillary glucose result is not consistent with the patient's clinical signs and symptoms, glucose testing should be repeated with either an arterial or venous sample on the glucometer or sent to the main labortory for testing. Comment 07/08/2025 11:50 PM EDT [facility] Agriculture Teacher ID Mary Cotto 07/08/2025 11:50 PM EDT [facility] Device ID [id number] 07/08/2025 11:50 PM EDT [facility] Specimen Type POC Arterial 07/08/2025 11:50 PM EDT [facility] Blood Arterial blood specimen / Unknown 07/08/2025 11:49 PM EDT 07/08/2025 11:50 PM EDT us Luanne Crawford MD LAB POINT OF CARE TEST DOCKED DEVICE UNSOLICITED RESULTS Final Result Performing Organization Address City/[facility]/ZIP Co de Phone Number [facility] [address] [place] [address] * (ABNORMAL) Tissue Culture and Gram Stain (07/08/2025 10:48 PM EDT) Culture Light Growth 07/13/2025 1:13 PM EDT [facility] Culture 1+ Schaalia turicensis (formerly known as Actinomyces turicensis)(A) 07/13/2025 1:13 PM EDT [facility] Comment: The organism value for this result has been updated. These results have been appended to the previously preliminary verified report. This is a corrected result. Previous organism was Gram positive anthony on 07/11/2025 at 1052 EDT. Culture 1+ Staphylococcus hominis(A) 07/13/2025 1:13 PM EDT [facility] Comment: This isolate has been identified using the FDA Approved [employer] [place] System The organism value for this result has been updated. These results have been appended to the previously preliminary verified report. Gram Stain Result Few Polymorphonuclear leukocytes(A) 07/13/2025 1:13 PM EDT [facility] Gram Stain Result Numerous Gram negative rods(A) 07/13/2025 1:13 PM EDT [facility] Gram Stain Result Few Gram positive cocci in pairs(A) 07/13/2025 1:13 PM EDT [facility] Tissue Topography unknown / Unknown 07/08/2025 10:48 PM EDT 07/09/2025 12:14 AM EDT Comment:Pre-op diagnosis: Necrotizing fasciitis (CMS/HCC) [M72.6] us Luanne Crawford MD LAB MICROBIOLOGY - GENERAL ORDERABLES Final Result Performing Organization Address City/[facility]/ZIP Co de Phone Number [facility] [address] [place] [address] * Transfuse fresh frozen plasma (07/08/2025 10:35 PM EDT) us Richard Betts LEGAL SERVICES MANAGER BLOOD TRANSFUSION ORDERAB LES Final Result * Transfuse RBC (07/08/2025 10:29 PM EDT) Richard Betts LEGAL SERVICES MANAGER BLOOD TRANSFUSION ORDERAB LES Final Result * (ABNORMAL) Blood gas panel, arterial (07/08/2025 10:08 PM EDT) pH, Arterial 7.28(L) 7.35 - 7.45 LAB HEMATOLOGY METHOD 07/08/2025 10:15 PM EDT [facility] pCO2, Arterial 50(H) 35 - 48 mmHg LAB HEMATOLOGY METHOD 07/08/2025 10:15 PM EDT [facility] pO2, Arterial 121(H) 83 - 108 mmHg LAB HEMATOLOGY METHOD 07/08/2025 10:15 PM EDT [facility] SO2, Measured, Arterial 99(H) 94 - 98 % LAB HEMATOLOGY METHOD 07/08/2025 10:15 PM EDT [facility] Base Excess, Arterial -3.6(L) -2.0 - 3.0 mmol/L LAB HEMATOLOGY METHOD 07/08/2025 10:15 PM EDT [facility] Bicarbonate, Calculated, Arterial 23 22 - 26 mmol/L LAB HEMATOLOGY METHOD 07/08/2025 10:15 PM EDT [facility] Hematocrit, Whole Blood 29.9(L) 34.0 - 45.0 % LAB HEMATOLOGY METHOD 07/08/2025 10:15 PM EDT [facility] Sodium, Whole Blood 133(L) 136 - 145 mmol/L LAB HEMATOLOGY METHOD 07/08/2025 10:15 PM EDT [facility] Potassium, Whole Blood 3.5(L) 3.6 - 4.9 mmol/L LAB HEMATOLOGY METHOD 07/08/2025 10:15 PM EDT [facility] Chloride, Whole Blood 101 97 - 107 mmol/L LAB HEMATOLOGY METHOD 07/08/2025 10:15 PM EDT [facility] Glucose, Whole Blood 351(H) 74 - 99 mg/dL LAB HEMATOLOGY METHOD 07/08/2025 10:15 PM EDT [facility] Ionized Calcium, Whole Blood 4.5(L) 4.6 - 5.1 mg/dL LAB HEMATOLOGY METHOD 07/08/2025 10:15 PM EDT [facility] Lactate, Arterial, Whole Blood 2.1(H) 0.5 - 1.6 mmol/L LAB HEMATOLOGY METHOD 07/08/2025 10:15 PM EDT [facility] Blood Arterial blood specimen / Unknown 07/08/2025 10:08 PM EDT 07/08/2025 10:14 PM EDT Comment:Pre-op diagnosis: Necrotizing fasciitis (CMS/HCC) [M72.6] us Luanne Crawford MD LAB BLOOD ORDERABLES Final Result [facility] [address] [place] [address] * Surgical Pathology Exam (07/08/2025 10:07 PM EDT) Case Report Surgical Pathology Case: [id number] Authorizing Provider: Luanne Crawford MD Collected: 07/08/20257 Ordering Location: [facility] A OPERATING ROOM Received: 07/09/2025 0740 Pathologist: Boaz Fernandez MD Specimens: A) - Other (specify site), saphenous vein B) - Other (specify site), right leg 07/10/2025 3:45 PM EDT [facility] Final Diagnosis A. SAPHENOUS VEIN SEGMENT, REMOVAL: - SCLEROTIC VEIN WITH ADVENTITIAL INFLAMMATION. B. RIGHT LEG TISSUE DEBRIDEMENT: - ACUTE NECROTIZING FASCIITIS OF SKIN AND SOFT TISSUE. 07/10/2025 3:45 PM EDT [facility] at 1545 EDT Clinical Information Necrotizing fasciitis; post recent boil self popped wound. 50 y.o. female with PMH of DM, hidradenitis supparativa, current smoker (1.5 ppd), UTI, depression, anxiety, asthma, HLD, Celiac disease, 07/10/2025 3:45 PM EDT [facility] Gross Description A. SAPHENOUS VEIN Specimen is received fresh and placed in formalin labeled saphenous vein. Received is a segment of vessel that measures 8.5 cm in length and up to 0.7 cm in diameter. Specimen is sectioned to reveal a pinpoint lumen with dried blood. Marketing Sales Consultant sections are taken and submitted in cassette A1. Cold Time: 8h 56m Abhishek M Emile, MD B. RIGHT LEG Specimen is received fresh labeled right leg. Received are numerous fragments of skin and underlying soft tissue that measure in aggregate 25.0 x 25.0 x 7.5 cm. Scattered areas of skin and soft tissue notable for being green-black, foul-smelling and extensively necrotic. Marketing Sales Consultant sections are taken and submitted in cassettes B1-B2. Abhishek Baptiste MD 07/10/2025 3:45 PM EDT [facility] Note: A resident was involved in the service. I attest I examined the relevant preparations for the specimens and confirmed the diagnosis or interpretation. 07/10/2025 3:45 PM EDT [facility] Tissue Topography unknown / Unknown 07/08/2025 10:07 PM EDT 07/09/2025 7:40 AM EDT Comment:Pre-op diagnosis: Necrotizing fasciitis (CMS/HCC) [M72.6] Tissue specimen (specimen) Topography unknown / Unknown 07/08/2025 10:49 PM EDT 07/09/2025 7:40 AM EDT Comment:Pre-op diagnosis: Necrotizing fasciitis (CMS/HCC) [M72.6] Luanne Crawford MD LAB PATHOLOGY ORDERABLES F inal Result [facility] [address] [place] [address] * Transfuse fresh frozen plasma (07/08/2025 10:04 PM EDT) us Richard N Yongbang LEGAL SERVICES MANAGER BLOOD TRANSFUSION ORDERAB LES Final Result * Transfuse fresh frozen plasma: 1 Units (07/08/2025 10:04 PM EDT) us Richard N Yongbang LEGAL SERVICES MANAGER BLOOD TRANSFUSION ORDERAB LES Final Result * Transfuse RBC (07/08/2025 9:41 PM EDT) us Richard N Yongbang LEGAL SERVICES MANAGER BLOOD TRANSFUSION ORDERAB LES Final Result * Transfuse RBC: 1 Units (07/08/2025 9:41 PM EDT) Ricahrd N Yongbang LEGAL SERVICES MANAGER BLOOD TRANSFUSION ORDERAB LES Final Result * Prepare Fresh Frozen Plasma: 2 Units (07/08/2025 9:24 PM EDT) Product Code [id number] BLOO D BANK Dispense Status Transfused BLOOD BANK Blood Expiration Date [id number] BLOOD BANK Unit Number [id number] CH B LOOD BANK Product Blood Type 5100 BLOOD BANK Blood Type O+ CH BLOOD BANK Product Code [id number] BLOO D BANK Dispense Status Transfused BLOOD BANK Blood Expiration Date [id number] BLOOD BANK Unit Number [id number] CH B LOOD BANK Product Blood Type 5100 BLOOD BANK Blood Type O+ CH BLOOD BANK Blood Venous blood specimen / Unknown Richard Betts CRNA BLOOD BANK PRODUCT ORDERA BLES Final Result Performing Organization Address [facility] Co de Phone Number BLOOD BANK [address] [place] [address], * Prepare Leukocyte Reduced RBC: 2 Units (07/08/2025 9:23 PM EDT) Product Code [id number] BLOO D BANK Dispense Status Transfused BLOOD BANK Blood Expiration Date [id number] BLOOD BANK Unit Number [id number] CH B LOOD BANK Product Blood Type 5100 BLOOD BANK Blood Type O+ BLOOD BANK Crossmatch Compatible BLOOD BANK Product Code [id number] BLOO D BANK Dispense Status Transfused BLOOD BANK Blood Expiration Date [id number] BLOOD BANK Unit Number [id number] CH B LOOD BANK Product Blood Type 5100 BLOOD BANK Blood Type O+ BLOOD BANK Crossmatch Compatible BLOOD BANK Other Richard Betts LEGAL SERVICES MANAGER BLOOD BANK PRODUCT ORDERA BLES Final Result Performing Organization Address [facility]/ZIP Co de Phone Number BLOOD BANK [address] * (ABNORMAL) Abscess Culture and Gram Stain (07/08/2025 9:06 PM EDT) Culture Light Growth 07/13/2025 1:13 PM EDT [facility] Culture 1+ Mixed skin silvestre(A) 07/13/2025 1:13 PM EDT [facility] Comment: The organism value for this result has been updated. These results have been appended to the previously preliminary verified report. Edited result: Previously reported as Gram positive cocci on 07/10/2025 at 1154 EDT. This is a corrected result. Previous organism was Staphylococcus species on 07/11/2025 at 0633 EDT. Culture 1+ Schaalia turicensis (formerly known as Actinomyces turicensis)(A) 07/13/2025 1:13 PM EDT [facility] Comment: This result was determined by [employer]DI tof Mass spectrometry. This assay was developed and its performance characteristics determined by [facility] as appropriate for clinical purposes. This assay has not been cleared or approved by the FDA, but is performed in a CLIA regulated laboratory that is qualified to perform high complexity testing. The organism value for this result has been updated. These results have been appended to the previously preliminary verified report. Gram Stain Result Numerous Gram positive cocci(A) 07/13/2025 1:13 PM EDT [facility] Gram Stain Result Few Gram variable rods(A) 07/13/2025 1:13 PM EDT [facility] Gram Stain Result Moderate Gram positive rods(A) 07/13/2025 1:13 PM EDT [facility] Gram Stain Result Numerous Gram negative rods(A) 07/13/2025 1:13 PM EDT [facility] Gram Stain Result Numerous Gram negative coccobacilli(A) 07/13/2025 1:13 PM EDT [facility] Gram Stain Result Moderate Polymorphonuclear leukocytes(A) 07/13/2025 1:13 PM EDT [facility] Swab Topography unknown / Unknown 07/08/2025 9:06 PM EDT 07/08/2025 9:15 PM EDT Comment:Pre-op diagnosis: Necrotizing fasciitis (CMS/HCC) [M72.6] us Luanne Crawford MD LAB MICROBIOLOGY - GENERAL ORDERABLES Final Result [facility] [address] [place] [address] * (ABNORMAL) POCT arterial blood gas gem (07/08/2025 8:51 PM EDT) pH, Arterial 7.28(L) 7.35 - 7.45 07/08/2025 8:53 PM EDT [facility] pCO2, Arterial 53(H) 35 - 48 mm Hg 07/08/2025 8:53 PM EDT [facility] pO2, Arterial 152(H) 83 - 108 mm Hg 07/08/2025 8:53 PM EDT [facility] SO2, Arterial 99(H) 94 - 98 % 07/08/2025 8:53 PM EDT [facility] Base Excess, Arterial -2.3(L) -2 - 3 mmol/L 07/08/2025 8:53 PM EDT [facility] HCO3, Arterial 24.9 22 - 26 mmol/L 07/08/2025 8:53 PM EDT [facility] Total Hemoglobin, Arterial, Whole Blood 10.9(L) 11.2 - 15.7 g/dL 07/08/2025 8:53 PM EDT [facility] Hematocrit, Arterial 33.0(L) 34.0 - 45.0 % 07/08/2025 8:53 PM EDT [facility] Sodium, Arterial 131(L) 136 - 145 mmol/L 07/08/2025 8:53 PM EDT [facility] Potassium, Arterial 3.8 3.6 - 4.9 mmol/L 07/08/2025 8:53 PM EDT [facility] Chloride, Whole Blood 98 97 - 107 mmol/L 07/08/2025 8:53 PM EDT [facility] Glucose, Arterial 418(H) 74 - 99 mg/dL 07/08/2025 8:53 PM EDT [facility] Ionized Calcium, Arterial 4.9 4.6 - 5.1 mg/dL 07/08/2025 8:53 PM EDT [facility] Lactate, Arterial 1.6 0.5 - 1.6 mmol/L 07/08/2025 8:53 PM EDT [facility] Body Temperature 37.0 Celsius 07/08/2025 8:53 PM EDT [facility] pH, Temp Corrected, Arterial 7.28(L) 7.35 - 7.45 07/08/2025 8:53 PM EDT [facility] pCO2, Temp Corrected, Arterial 53(H) 35 - 48 mm Hg 07/08/2025 8:53 PM EDT [facility] pO2, Temp Corrected, Arterial 152(H) 83 - 108 mm Hg 07/08/2025 8:53 PM EDT [facility] Agriculture Teacher ID Yadi Goel 07/08/2025 8:53 PM EDT [facility] Blood, Arterial Whole blood specimen / Unknown 07/08/2025 8:51 PM EDT 07/08/2025 8:53 PM EDT us Luanne Crawford MD LAB POINT OF CARE TEST DOCKED DEVICE UNSOLICITED RESULTS Final Result Performing Organization Address City/[facility]/ZIP Co de Phone Number [facility] [address] [place] [address] * ED HIV 1/2 Antibody/Antigen Screen w/Reflex to HIV 1/2 Differentiation (07/08/2025 6:14 PM EDT) Pathologist [facility] HIV 1 & 2 Antibody/Antigen Screen Non Reactive Non Reactive 07/08/2025 7:12 PM EDT [facility] Comment:Screening for HIV 1 & 2 antibodies, and P24 antigen is NONREACTIVE. No confirmatory testing is required. Blood Venous blood specimen / Unknown Venipuncture / Unknown 07/08/2025 6:14 PM EDT 07/08/2025 6:30 PM EDT us My Charles MD LAB BLOOD ORDERABLES Fi nal Result [facility] [address] [place] [address] * Hepatitis C Antibody - ED (07/08/2025 6:14 PM EDT) Pathologist [facility] Hepatitis C Antibody Negative Negative 07/08/2025 7:12 PM EDT [facility] Blood Venous blood specimen / Unknown Venipuncture / Unknown 07/08/2025 6:14 PM EDT 07/08/2025 6:30 PM EDT My Charles MD LAB BLOOD ORDERABLES Fi nal Result [facility] [address] [place] [address] * (ABNORMAL) C-Reactive protein (07/08/2025 6:14 PM EDT) [facility] CRP, Plasma 462.2(H) <=8.0 mg/L 07/08/2025 7:18 PM EDT [facility] Blood Venous blood specimen / Unknown Venipuncture / Unknown 07/08/2025 6:14 PM EDT 07/08/2025 6:23 PM EDT Narrative [facility] - 07/08/2025 7:18 PM EDT This CRP test is appropriate for assessment of infection, systemic inflammation and/or tissue injury. To assess cardiovascular disease risk order high sensitivity CRP (CRPH). My Charles MD LAB BLOOD ORDERABLES Fi nal Result Performing Organization Address [facility]/ZIP Co de Phone Number [facility] [address] [place] [address] * (ABNORMAL) Lactic acid, venous (07/08/2025 6:14 PM EDT) [facility] Lactate, Venous, Whole Blood 2.6(H) 0.5 - 2.2 mmol/L LAB HEMATOLOGY METHOD 07/08/2025 6:29 PM EDT [facility] Blood Venous blood specimen / Unknown Venipuncture / Unknown 07/08/2025 6:14 PM EDT 07/08/2025 6:23 PM EDT My Charles MD LAB BLOOD ORDERABLES Fi nal Result [facility] [address] [place] [address] * Type and screen (07/08/2025 6:14 PM EDT) [facility] ABO/Rh O Positive 07/08/2025 6:10 PM EDT [facility]LO[facility] Antibody Screen Negative 07/08/2025 6:10 PM EDT [facility] Specimen Expiration 07/11/2025 23:59 07/08/2025 6:10 PM EDT [facility] Blood Venous blood specimen / Unknown Venipuncture / Unknown 07/08/2025 6:14 PM EDT 07/08/2025 6:18 PM EDT My Charles MD LAB BLOOD BANK TEST ORD ERABLES Final Result Performing Organization Address [facility]/ZIP Co de Phone Number BLOOD BANK [address] * (ABNORMAL) PT-INR (07/08/2025 6:14 PM EDT) [facility] Prothrombin Time 15.3(H) 12.0 - 14.3 sec 07/08/2025 6:56 PM EDT [facility] INR 1.2(H) 0.9 - 1.1 07/08/2025 6:56 PM EDT [facility] Blood Venous blood specimen / Unknown Venipuncture / Unknown 07/08/2025 6:14 PM EDT 07/08/2025 6:23 PM EDT Narrative [facility] - 07/08/2025 6:56 PM EDT OPTIMAL INR RANGES FOR PATIENT ON ORAL ANTICOAGULANT THERAPY Prevention of venous thromboembolism INR 2.0 to 3.0 In patients with heart disease: Atrial fibrillation INR 2.0 to 3.0 Valvular heart disease INR 2.0 to 3.0 Tissue heart valves INR 2.0 to 3.0 Mechanical prosthetic valves INR 2.5 to 3.5 Prevention of recurrent KS INR 2.5 to 3.5 My Charles MD LAB BLOOD ORDERABLES Fi nal Result [facility] [address] [place] [address] * (ABNORMAL) CBC w/diff (07/08/2025 6:14 PM EDT) [facility] WBC Count 26.15(H) 3.70 - 10.30 10*3/uL LAB HEMATOLOGY METHOD 07/08/2025 9:04 PM EDT [facility] RBC Count 3.97 3.90 - 5.20 10*6/uL LAB HEMATOLOGY METHOD 07/08/2025 9:04 PM EDT [facility] HGB 10.9(L) 11.2 - 15.7 g/dL LAB HEMATOLOGY METHOD 07/08/2025 9:04 PM EDT [facility] HCT 33.6(L) 34.0 - 45.0 % LAB HEMATOLOGY METHOD 07/08/2025 9:04 PM EDT [facility] Platelet Count 329 155 - 369 10*3/uL LAB HEMATOLOGY METHOD 07/08/2025 9:04 PM EDT [facility] MCV 85 79 - 98 fL LAB HEMATOLOGY METHOD 07/08/2025 9:04 PM EDT [facility] MCH 27.5 26.0 - 32.0 pg LAB HEMATOLOGY METHOD 07/08/2025 9:04 PM EDT [facility] MCHC 32.4 30.7 - 35.5 g/dL LAB HEMATOLOGY METHOD 07/08/2025 9:04 PM EDT [facility] RDW 17.3(H) 11.5 - 14.5 % LAB HEMATOLOGY METHOD 07/08/2025 9:04 PM EDT [facility] MPV 10.1 8.8 - 12.5 fL LAB HEMATOLOGY METHOD 07/08/2025 9:04 PM EDT [facility] nRBC 0.0 <=0.0 per 100 WBCs LAB HEMATOLOGY METHOD 07/08/2025 9:04 PM EDT [facility] Differential Type Automated LAB HEMATOLOGY METHOD 07/08/2025 9:04 PM EDT [facility] Neutrophils % 91 % LAB HEMATOLOGY METHOD 07/08/2025 9:04 PM EDT [facility] Lymphocytes % 4 % LAB HEMATOLOGY METHOD 07/08/2025 9:04 PM EDT [facility] Monocytes % 4 % LAB HEMATOLOGY METHOD 07/08/2025 9:04 PM EDT [facility] Eosinophils % 0 % LAB HEMATOLOGY METHOD 07/08/2025 9:04 PM EDT [facility] Basophils % 0 % LAB HEMATOLOGY METHOD 07/08/2025 9:04 PM EDT [facility] Immature Granulocytes % 1 % LAB HEMATOLOGY METHOD 07/08/2025 9:04 PM EDT [facility] Neutrophils Absolute 23.61(H) 1.60 - 6.10 10*3/uL LAB HEMATOLOGY METHOD 07/08/2025 9:04 PM EDT [facility] Lymphocytes Absolute 1.15(L) 1.20 - 3.90 10*3/uL LAB HEMATOLOGY METHOD 07/08/2025 9:04 PM EDT [facility] Monocytes Absolute 0.98(H) 0.30 - 0.90 10*3/uL LAB HEMATOLOGY METHOD 07/08/2025 9:04 PM EDT [facility] Eosinophils Absolute 0.04 0.00 - 0.50 10*3/uL LAB HEMATOLOGY METHOD 07/08/2025 9:04 PM EDT [facility] Basophils Absolute 0.09 0.00 - 0.10 10*3/uL LAB HEMATOLOGY METHOD 07/08/2025 9:04 PM EDT [facility] Immature Granulocytes Absolute 0.25(H) 0.00 - 0.06 10*3/uL LAB HEMATOLOGY METHOD 07/08/2025 9:04 PM EDT [facility] Blood Venous blood specimen / Unknown Venipuncture / Unknown 07/08/2025 6:14 PM EDT 07/08/2025 6:23 PM EDT Narrative [facility] - 07/08/2025 9:04 PM EDT Therapeutic decision making should be based on absolute values, rather than percentages. us My Charles MD LAB BLOOD ORDERABLES Fi nal Result [facility] [address] [place] [address] * (ABNORMAL) CMP (07/08/2025 6:14 PM EDT) Glucose, Plasma 411(H) 74 - 99 mg/dL 07/08/2025 7:18 PM EDT [facility] BUN, Plasma 33(H) 7 - 21 mg/dL 07/08/2025 7:18 PM EDT [facility] Creatinine, Plasma 1.99(H) 0.60 - 1.10 mg/dL 07/08/2025 7:18 PM EDT [facility] BUN/Creatinine Ratio 17 07/08/2025 7:18 PM EDT [facility] Sodium, Plasma 131(L) 136 - 145 mmol/L 07/08/2025 7:18 PM EDT [facility] Potassium, Plasma 4.0 3.6 - 4.9 mmol/L 07/08/2025 7:18 PM EDT [facility] Chloride, Plasma 93(L) 97 - 107 mmol/L 07/08/2025 7:18 PM EDT [facility] CO2, Plasma 22 22 - 29 mmol/L 07/08/2025 7:18 PM EDT [facility] Anion Gap 16 6 - 16 mmol/L 07/08/2025 7:18 PM EDT [facility] Total Calcium, Plasma 9.3 8.9 - 10.2 mg/dL 07/08/2025 7:18 PM EDT [facility] Total Protein 6.0(L) 6.3 - 7.9 g/dL 07/08/2025 7:18 PM EDT [facility] Albumin, Plasma 2.6(L) 3.5 - 5.2 g/dL 07/08/2025 7:18 PM EDT [facility] AST, Plasma 16 10 - 35 U/L 07/08/2025 7:18 PM EDT [facility] ALT, Plasma 15 10 - 35 U/L 07/08/2025 7:18 PM EDT [facility] Alkaline Phosphatase, Plasma 165(H) 35 - 104 U/L 07/08/2025 7:18 PM EDT [facility] Total Bilirubin, Plasma 0.4 0.2 - 1.1 mg/dL 07/08/2025 7:18 PM EDT [facility] eGFRcr 30.3 mL/min/1.7 3m*2 07/08/2025 7:18 PM EDT [facility] Comment:Reported eGFRcr in m L/min/1.73m2 is based the CKD-EPI 2020 equation that does not use a race coefficient. Blood Venous blood specimen / Unknown Venipuncture / Unknown 07/08/2025 6:14 PM EDT 07/08/2025 6:23 PM EDT us My Charles MD LAB BLOOD ORDERABLES Fi nal Result [facility] [address] [place] [address] * [facility], E/M 30-74 MINUTES (07/08/2025 5:58 PM EDT) Narrative My Charles MD - 07/08/2025 5:58 PM EDT My Charles MD 07/08/2025 9:14 PM Critical Care Performed by: My Charles MD Authorized by: My Charles MD Critical care provider statement: Critical care time (minutes): 35 Critical care time was exclusive of: Separately billable procedures and treating other patients and teaching time Critical care was time spent personally by me on the following activities: Development of treatment plan with patient or surrogate, discussions with consultants, discussions with primary provider, evaluation of patient's response to treatment, examination of patient, obtaining history from patient or surrogate, ordering and review of laboratory studies, ordering and performing treatments and interventions and ordering and review of radiographic studies Critical care statement: I saw and evaluated the patient with the resident/ fellow. I discussed the case with the resident/ fellow and agree with the findings and plan as documented. us My Charles MD IN CLINIC/BEDSIDE ORDER LUANNE Final Result documented in this encounter Visit Diagnoses Diagnosis Necrotizing fasciitis (CMS/HCC)- Primary Necrotizing fasciitis Necrotizing fasciitis (CMS/HCC) Necrotizing fasciitis 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) Morbid (severe) obesity due to excess calories (CMS/HCC) Septic shock (CMS/HCC) Acute respiratory failure with hypoxia Type 2 diabetes mellitus with hyperglycemia, without long-term current use of insulin Celiac disease Respiratory insufficiency Other dyspnea and respiratory abnormality DM (diabetes mellitus) Type II or unspecified type diabetes mellitus without mention of complication, not stated as uncontrolled Hidradenitis Smoker Tobacco use disorder Acute respiratory failure Septic shock (CMS/HCC) Absence seizure (CMS/HCC) 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 epilepsy Chronic obstructive pulmonary disease, unspecified HTN (hypertension), benign Essential hypertension, benign Depression Depressive disorder, not elsewhere classified Morbid (severe) obesity due to excess calories (CMS/HCC) Urge incontinence HLD (hyperlipidemia) Other and unspecified hyperlipidemia JOSEP (obstructive sleep apnea) Obstructive sleep apnea (adult) (pediatric) Postoperative pain Other acute postoperative pain Hypoxia Hypoxemia documented in this encounter Admitting Diagnoses Diagnosis Necrotizing fasciitis (CMS/HCC) Necrotizing fasciitis documented in this encounter Administered Medications Inactive Administered Medications - up to 3 most recent administrations Medication Order MAR Action Action Date Dose Rate Site acetaminophen (Ofirmev) injection 1,000 mg 1,000 mg, Intravenous, Every 6 hours, 28 doses, First dose on Tue07/09/25 at 0045, Last dose on Tue07/15/25 at 1845, Routine New Bag 07/09/2025 5:59 AM EDT 1,000 mg 400 mL/ hr New Bag 07/09/2025 12:26 AM EDT 1,000 mg 400 mL/hr acetaminophen (Ofirmev) injection 1,000 mg 1,000 mg, Intravenous, Every 6 hours, 4 doses, First dose on Tue07/10/25 at 2000, Last dose on Tue07/11/25 at 1400, Routine New Bag 07/11/2025 8:14 AM EDT 1,000 mg 400 mL/ hr New Bag 07/11/2025 1:00 AM EDT 1,000 mg 400 mL/hr New Bag 07/10/2025 7:54 PM EDT 1,000 mg 400 mL/hr acetaminophen (Tylenol) tablet 1,000 mg 1,000 mg, Nasogastric, Every 6 hours scheduled, First dose on Tue07/09/25 at 1200, Until Discontinued, Routine Given 07/10/2025 5:17 AM EDT 1,000 mg Given 07/09/2025 11:33 PM EDT 1,000 mg Given 07/09/2025 6:23 PM EDT 1,000 mg acetaminophen (Tylenol) tablet 1,000 mg 1,000 mg, Oral, Every 6 hours scheduled, First dose on Tue07/11/25 at 1200, Until Discontinued, Routine Given 07/19/2025 12:30 PM EDT 1,000 mg Given 07/19/2025 6:07 AM EDT 1,000 mg Given 07/19/2025 12:38 AM EDT 1,000 mg albuterol (Proventil) (2.5 MG/3ML) 0.083% nebulizer solution 2.5 mg 2.5 mg, Nebulization, Every 6 hours PRN, Starting on Tue07/09/25 at 0102, Until Tue07/16/25 at 1005, Routine, wheezing Given 07/09/2025 1:06 AM EDT 2.5 mg busPIRone (Buspar) tablet 15 mg 15 mg, Oral, 2 times daily, First dose (after last modification) on Tue07/16/25 at 1115, Until Discontinued, Routine Given 07/19/2025 8:39 AM EDT 15 mg Given 07/18/2025 9:14 PM EDT 15 mg Given 07/18/2025 8:52 AM EDT 15 mg busPIRone (Buspar) tablet 15 mg 15 mg, Oral, Daily PRN, Starting on Tue07/16/25 at 1027, Until Tue07/19/25 at 1456, Routine, anxiety, per patient request Given 07/18/2025 1:16 PM EDT 15 mg cefepime (Maxipime) 2 g in sodium chloride 0.9% 100 mL IVPB (vial adapter required) 2 g, Intravenous, Every 8 hours, First dose on Tue07/08/25 at 2330, Until Discontinued, Routine New Bag 07/12/2025 8:27 AM EDT 2 g 36. 7 mL/hr New Bag 07/12/2025 12:23 AM EDT 2 g 36.7 mL/hr New Bag 07/11/2025 5:25 PM EDT 2 g 36.7 mL/hr dextrose 10 % (D10W) bolus 125 mL 125 mL, Intravenous, Every 15 min PRN, Starting on Tue07/08/25 at 2053, Until Tue07/19/25 at 1456, Administer over 15 Minutes, Routine, low blood sugar BG 51-89 mg/dL New Bag 07/09/2025 12:26 PM EDT 125 mL 500 mL/hr dextrose 10 % (D10W) bolus 250 mL 250 mL, Intravenous, Every 15 min PRN, Starting on Tue07/08/25 at 2053, Until Tue07/19/25 at 1456, Administer over 15 Minutes, Routine, PRN low blood sugar BG =/<50 mg/dL dextrose 5 % and lactated Ringer's infusion 84 mL/hr, Intravenous, Continuous, Starting on Tue07/14/25 at 0000, Until Tue07/14/25 at 1810, Routine Rate/Dose Verify 07/14/2025 6:00 AM EDT 84 mL/hr 84 mL/hr Rate/Dose Verify 07/14/2025 4:00 AM EDT 84 mL/hr 84 mL/h r New Bag 07/14/2025 12:34 AM EDT 84 mL/hr 84 mL/hr DULoxetine (Cymbalta) DR capsule 60 mg 60 mg, Nasogastric, Daily, First dose on Tue07/10/25 at 0915, Until Discontinued, Routine Given 07/10/2025 9:22 AM EDT 60 mg DULoxetine (Cymbalta) DR capsule 60 mg 60 mg, Oral, Daily, First dose on Tue07/12/25 at 0900, Until Discontinued, Routine Given 07/19/2025 8:39 AM EDT 60 mg Given 07/18/2025 8:52 AM EDT 60 mg Given 07/17/2025 10:01 AM EDT 60 mg enoxaparin (Lovenox) syringe 40 mg 40 mg, Subcutaneous, 2 times daily, First dose on Tue07/10/25 at 1800, Until Discontinued, Routine Given 07/19/2025 8:39 AM EDT 40 mg Left Lower Abdomen Given 07/18/2025 9:15 PM EDT 40 mg Ri ght Lower Abdomen Given 07/18/2025 8:51 AM EDT 40 mg Le ft Upper Abdomen famotidine PF (Pepcid) injection 20 mg 20 mg, Intravenous, Every 12 hours, First dose on Tue07/09/25 at 0100, Until Discontinued, Routine Given 07/10/2025 1:20 PM EDT 20 mg Given 07/10/2025 12:59 AM EDT 20 mg Given 07/09/2025 12:30 PM EDT 20 mg fentaNYL (Sublimaze) injection 25 mcg 25 mcg, Intravenous, Every 5 min PRN, 2 doses, Starting on Tue07/10/25 at 1720, Until Tue07/10/25 at 1830, Routine, Recovery (Phase I only), pain score of 3-4 out of 10 Given 07/10/2025 5:35 PM EDT 25 mcg furosemide (Lasix) injection 40 mg 40 mg, Intravenous, Once, 1 dose, On Tue07/12/25 at 1415, Routine Given 07/12/2025 1:59 PM EDT 40 mg furosemide (Lasix) injection 40 mg 40 mg, Intravenous, Once, 1 dose, On Tue07/13/25 at 1315, Routine Given 07/13/2025 1:10 PM EDT 40 mg glucagon (human recombinant) injection 1 mg 1 mg, Intramuscular, Every 15 min PRN, Starting on Tue07/08/25 at 2053, Until Tue07/19/25 at 1456, Routine, low blood sugar per Hypoglycemia Prevention and Treatment protocol heparin (porcine) injection 7,500 Units 7,500 Units, Subcutaneous, Every 8 hours, 4 doses, First dose on Tue07/09/25 at 0830, Last dose on Tue07/10/25 at 0830, Routine Given 07/10/2025 9:22 AM EDT 7,500 Units Left Lower Abdomen Given 07/09/2025 11:33 PM EDT 7,500 Units Right Upper Arm (Back) Given 07/09/2025 4:18 PM EDT 7,500 Units L eft Lower Abdomen HYDROmorphone (Dilaudid) bolus from bag 0.5 mg, Intravenous, Every 10 min PRN, Starting on Tue07/08/25 at 2326, Until Tue07/10/25 at 1708, Administer over 2 Minutes, Routine, CPOT (5-8) Bolus from Bag 07/10/2025 3:39 AM EDT 0.5 mg HYDROmorphone (Dilaudid) injection 0.25 mg 0.25 mg, Intravenous, Every 2 hour PRN, Starting on Tue07/10/25 at 1749, Until Tomasa 07/11/25 at 0844, Routine, Recovery(Phase II-Outpatient)/On Unit(Inpatient), mild - moderate pain Given 07/11/2025 12:43 AM EDT 0.25 mg HYDROmorphone (Dilaudid) injection 0.25 mg 0.25 mg, Intravenous, Once, 1 dose, On Tue07/19/25 at 0315, Routine Given 07/19/2025 2:23 AM EDT 0.25 mg HYDROmorphone (Dilaudid) injection 0.5 mg 0.5 mg, Intravenous, 2 times daily PRN, Starting on Tue07/12/25 at 0756, Until Tue07/15/25 at 0526, Routine, severe pain, to be given for dressing changes Given 07/13/2025 9:27 PM EDT 0.5 mg Given 07/13/2025 2:18 PM EDT 0.5 mg Given 07/12/2025 2:34 PM EDT 0.5 mg HYDROmorphone (Dilaudid) injection 0.5 mg 0.5 mg, Intravenous, Once, 1 dose, On Tue07/15/25 at 1230, Routine, Sign Given 07/15/2025 11:37 AM EDT 0.5 mg HYDROmorphone (Dilaudid) injection 0.5 mg 0.5 mg, Intravenous, Once, 1 dose, On Tue07/17/25 at 1600, Routine, Sign Given 07/17/2025 3:40 PM EDT 0.5 mg hydromorphone 20 mg in NS 100 mL infusion (200 mcg/mL) 0.25-2 mg/hr (1.25-10 mL/hr), 0.2 mg/mL, Intravenous, Titrated, Starting on Tue07/09/25 at 0015, Until Tue07/10/25 at 1707, Routine Continued by Anesthesia 07/10/2025 3:16 PM EDT 0.25 mg/hr 1.25 mL/hr Rate/Dose Verify 07/10/2025 3:00 PM EDT 0.25 mg/hr 1.25 mL /hr Rate/Dose Verify 07/10/2025 2:00 PM EDT 0.25 mg/hr 1.25 mL /hr insulin glargine-yfgn 100 UNIT/ML injection 10 Units 10 Units, Subcutaneous, Nightly, First dose (after last modification) on Tue07/12/25 at 2100, Until Discontinued, Routine Given 07/16/2025 9:08 PM EDT 10 Units Right Upper Arm (Kayleigh k) Given 07/15/2025 8:27 PM EDT 10 Units Le ft Upper Arm (Back) Given 07/14/2025 8:12 PM EDT 10 Units Le ft Lower Abdomen insulin glargine-yfgn 100 UNIT/ML injection 10 Units 10 Units, Subcutaneous, Nightly, First dose (after last modification) on Tue07/19/25 at 2100, Until Discontinued, Routine insulin glargine-yfgn 100 UNIT/ML injection 12 Units 12 Units, Subcutaneous, Every 24 hours, First dose on Tue07/11/25 at 1715, Until Discontinued, Routine Given 07/11/2025 5:26 PM EDT 12 Units Right Lower Abdomen insulin glargine-yfgn 100 UNIT/ML injection 8 Units 8 Units, Subcutaneous, Nightly, First dose (after last modification) on Tue07/17/25 at 2100, Until Discontinued, Routine Given 07/18/2025 9:23 PM EDT 8 Units Left Lower Abdomen Given 07/17/2025 10:34 PM EDT 8 Units L eft Upper Arm (Back) insulin lispro (Admelog) 100 units/mL injection - Correction - Standard Dose 0-5 Units, Subcutaneous, 3 times daily with meals, First dose on Tue07/11/25 at 1730, Until Discontinued, Routine Given 07/18/2025 6:12 PM EDT 2 Units Right Upper Arm (Kayleigh k) Given 07/17/2025 12:15 PM EDT 2 Units R ight Upper Arm (Back) Given 07/16/2025 5:39 PM EDT 1 Units Le ft Lower Abdomen insulin lispro (Admelog) injection - Correction - Nighttime Dose 0-3 Units, Subcutaneous, 2 times nightly (2100 & 0300), First dose on Tue07/11/25 at 2100, Until Discontinued, Routine insulin regular (HumuLIN, NovoLIN) bolus from bag 1-10 Units 1-10 Units, Intravenous, Once, 1 dose, On Tue07/08/25 at 2145, Routine Bolus from Bag 07/09/2025 12:17 AM EDT 3 Units insulin regular in sodium chloride 0.9 % 1 UNIT/ML infusion (Standard Insulin Protocol) 0.5-30 Units/hr (0.5-30 mL/hr), Intravenous, Titrated, Starting on Tue07/08/25 at 2145, Until Tue07/11/25 at 1820, Routine Rate/Dose Verify 07/11/2025 6:00 PM EDT 0.64 Units/hr 0.64 mL/hr Rate/Dose Verify 07/11/2025 4:16 PM EDT 0.64 Units/hr 0.64 mL/hr Continued from OR 07/11/2025 4:00 PM EDT 0.64 Units/hr 0.6 4 mL/hr ipratropium-albuterol (Duo-Neb) 0.5-2.5 mg/3 mL nebulizer solution 3 mL 3 mL, Nebulization, Every 6 hours RT, First dose on Tue07/09/25 at 0300, Until Discontinued, Routine Given 07/16/2025 9:38 AM EDT 3 mL Given 07/16/2025 2:28 AM EDT 3 mL Given 07/15/2025 8:52 PM EDT 3 mL ipratropium-albuterol (Duo-Neb) 0.5-2.5 mg/3 mL nebulizer solution 3 mL 3 mL, Nebulization, Every 6 hours RT, First dose (after last modification) on Tue07/16/25 at 1500, Until Discontinued, Routine Given 07/19/2025 3:38 AM EDT 3 mL Given 07/18/2025 8:30 PM EDT 3 mL Given 07/18/2025 3:23 PM EDT 3 mL ipratropium-albuterol (Duo-Neb) 0.5-2.5 mg/3 mL nebulizer solution 3 mL 3 mL, Nebulization, Every 6 hours PRN, Starting on Tue07/19/25 at 0730, Until Tue07/19/25 at 1456, Routine, wheezing Jose powder 1 packet 1 packet, Oral, 2 times daily, First dose on Tue07/12/25 at 1400, Until Discontinued, Routine Given 07/15/2025 9:20 AM EDT 1 packet Given 07/13/2025 8:16 AM EDT 1 packet Given 07/12/2025 3:00 PM EDT 1 packet Jose powder 1 packet 1 packet, Oral, 2 times daily, First dose on Tue07/15/25 at 0900, Until Discontinued, Routine, Recovery(Phase II-Outpatient)/On Unit(Inpatient) Given 07/18/2025 9:15 PM EDT 1 packet Given 07/18/2025 8:52 AM EDT 1 packet Given 07/17/2025 8:18 PM EDT 1 packet lactated Ringer's bolus 1,000 mL 1,000 mL, Intravenous, Once, 1 dose, On Tue07/09/25 at 0630, Administer over 30 Minutes, Routine New Bag 07/09/2025 6:02 AM EDT 1,000 mL 2000 mL/hr lactated Ringer's bolus 1,000 mL 1,000 mL, Intravenous, Once, 1 dose, On Tue07/09/25 at 0830, Administer over 2 Hours, Routine New Bag 07/09/2025 8:28 AM EDT 1,000 mL 500 mL/hr lactated Ringer's bolus 1,000 mL 1,000 mL, Intravenous, Once, 1 dose, On Tue07/10/25 at 0730, Administer over 2 Hours, Routine New Bag 07/10/2025 6:42 AM EDT 1,000 mL 500 mL/hr lactated Ringer's bolus 1,000 mL 1,000 mL, Intravenous, Once, 1 dose, On Tue07/11/25 at 0800, Administer over 2 Hours, Routine New Bag 07/11/2025 8:41 AM EDT 1,000 mL 500 mL/hr lamoTRIgine (LaMICtal XR) 24 hr tablet 100 mg 100 mg, Oral, Nightly, First dose on Tue07/11/25 at 2000, Until Discontinued, Routine Given 07/18/2025 9:23 PM EDT 100 mg Given 07/17/2025 8:18 PM EDT 100 mg Given 07/16/2025 9:08 PM EDT 100 mg lamoTRIgine (LaMICtal) tablet 50 mg 50 mg, Nasogastric, 2 times daily, First dose on Tue07/09/25 at 0900, Until Discontinued, Routine Given 07/10/2025 9:21 AM EDT 50 mg Given 07/09/2025 8:16 PM EDT 50 mg Given 07/09/2025 9:32 AM EDT 50 mg linezolid (Zyvox) injection 600 mg 600 mg, Intravenous, Every 12 hours, First dose on Tue07/08/25 at 1815, Until Discontinued, Administer over 30 Minutes, Routine New Bag 07/12/2025 5:41 AM EDT 600 m g 600 mL/hr New Bag 07/11/2025 5:26 PM EDT 600 mg 600 mL/hr New Bag 07/11/2025 5:15 AM EDT 600 mg 600 mL/hr linezolid (Zyvox) tablet 600 mg 600 mg, Oral, 2 times daily, First dose on Tue07/12/25 at 1800, Until Discontinued, Routine Given 07/14/2025 8:25 AM EDT 600 mg Given 07/13/2025 9:26 PM EDT 600 mg Given 07/13/2025 8:17 AM EDT 600 mg magnesium sulfate IVPB 2 g 2 g, Intravenous, Once, 1 dose, On Tue07/09/25 at 0130, Routine, Recovery(Phase II-Outpatient)/On Unit(Inpatient) New Bag 07/09/2025 2:08 AM EDT 2 g 25 mL/hr magnesium sulfate IVPB 2 g 2 g, Intravenous, Once, 1 dose, On Tue07/11/25 at 0330, Routine, Recovery(Phase II-Outpatient)/On Unit(Inpatient) New Bag 07/11/2025 2:42 AM EDT 2 g 25 mL/hr magnesium sulfate IVPB 2 g 2 g, Intravenous, Once, 1 dose, On Tue07/17/25 at 0730, Routine Bag 07/17/2025 10:01 AM EDT 2 g 2 5 mL/hr magnesium sulfate IVPB 2 g 2 g, Intravenous, Once, 1 dose, On Tue07/19/25 at 0645, Routine New Bag 07/19/2025 6:08 AM EDT 2 g 25 mL/hr methocarbamol (Robaxin) injection 760 mg 760 mg (rounded from 750 mg), Intravenous, Every 8 hours, 3 doses, First dose on Tue07/10/25 at 2000, Last dose on Tue07/11/25 at 1200, Routine Given 07/11/2025 4:43 AM EDT 760 mg Given 07/10/2025 8:17 PM EDT 760 mg methocarbamol (Robaxin) tablet 750 mg 750 mg, Nasogastric, Every 6 hours scheduled, First dose on Tue07/09/25 at 1200, Until Discontinued, Routine Given 07/10/2025 5:17 AM EDT 750 mg Given 07/09/2025 11:33 PM EDT 750 mg Given 07/09/2025 6:23 PM EDT 750 mg methocarbamol (Robaxin) tablet 750 mg 750 mg, Oral, 3 times daily, First dose on Tue07/11/25 at 1100, Until Discontinued, Routine Given 07/19/2025 8:40 AM EDT 750 mg Given 07/18/2025 9:14 PM EDT 750 mg Given 07/18/2025 8:51 AM EDT 750 mg metoprolol succinate XL (Toprol-XL) 24 hr tablet 100 mg 100 mg, Oral, Nightly, First dose on Tue07/16/25 at 2100, Until Discontinued, Routine Given 07/18/2025 9:14 PM E DT 100 mg Given 07/17/2025 8:18 PM EDT 100 mg Given 07/16/2025 9:08 PM EDT 100 mg metoprolol tartrate (Lopressor) split tablet 12.5 mg 12.5 mg, Nasogastric, 2 times daily, First dose on Tue07/09/25 at 0900, Until Discontinued, Routine Given 07/09/2025 8:46 PM EDT 12.5 mg Given 07/09/2025 9:32 AM EDT 12.5 mg metoprolol tartrate (Lopressor) tablet 25 mg 25 mg, Oral, 2 times daily, First dose on Tue07/12/25 at 1015, Until Discontinued, Routine Given 07/15/2025 8:25 PM EDT 25 mg Given 07/14/2025 8:10 PM EDT 25 mg Given 07/14/2025 8:25 AM EDT 25 mg metroNIDAZOLE (Flagyl) IVPB 500 mg 500 mg, Intravenous, Every 8 hours, First dose on Tue07/08/25 at 2300, Until Discontinued, Routine New Bag 07/09/2025 12:55 AM EDT 500 mg 100 mL/hr New Bag 07/08/2025 9:10 PM EDT 500 mg Continued from OR 07/08/2025 9:05 PM EDT 100 mL /hr metroNIDAZOLE (Flagyl) IVPB 500 mg 500 mg, Intravenous, Every 8 hours, First dose on Tue07/10/25 at 2000, Until Discontinued, Routine New Bag 07/12/2025 3:37 AM EDT 500 mg 100 mL/hr New Bag 07/11/2025 8:48 PM EDT 500 mg 100 mL/hr New Bag 07/11/2025 11:57 AM EDT 500 mg 100 mL/hr metroNIDAZOLE (Flagyl) tablet 500 mg 500 mg, Nasogastric, Every 8 hours, First dose on Tue07/09/25 at 0830, Until Discontinued, Routine Given 07/10/2025 9:22 AM EDT 500 mg Given 07/09/2025 11:33 PM EDT 500 mg Given 07/09/2025 4:18 PM EDT 500 mg mupirocin (Bactroban) 2 % ointment 1 Application Each Nostril, 2 times daily, 10 doses, First dose on Tue07/09/25 at 0030, Last dose on Tue07/13/25 at 0900, Routine Given 07/13/2025 8:16 AM EDT 1 Applic ation Given 07/12/2025 8:27 PM EDT 1 Application Given 07/12/2025 8:27 AM EDT 1 Application norepinephrine 8 mg/250 mL (0.032 mg/mL) infusion 0.02-0.4 mcg/kg/min 177 kg (6.6375-132.75 mL/hr, rounded to 6.64-132.75 mL/hr), 0.032 mg/mL, Intravenous, Titrated, Starting on Tue07/08/25 at 1815, Until Tue07/10/25 at 0803, STAT Rate/Dose Change 07/10/2025 8:00 AM EDT 0.1 mcg/kg/min 33.2 mL/hr Rate/Dose Change 07/10/2025 7:16 AM EDT 0.11 mcg/kg/min 36 .5 mL/hr Rate/Dose Change 07/10/2025 7:03 AM EDT 0.12 mcg/kg/min 39 .8 mL/hr norepinephrine 8 mg/250 mL (0.032 mg/mL) infusion 0-0.4 mcg/kg/min 177 kg (0-132.75 mL/hr), 0.032 mg/mL, Intravenous, Titrated, Starting on Tue07/10/25 at 0900, Until Tue07/12/25 at 0624, STAT Rate/Dose Change 07/11/2025 2:34 PM EDT 0.01 mcg/kg/min 3.319 mL/hr Continued by Anesthesia 07/11/2025 2:12 PM EDT 0.02 mcg/kg /min 6.638 mL/hr Rate/Dose Verify 07/11/2025 2:00 PM EDT 0.01 mcg/kg/min 3. 32 mL/hr ondansetron (Zofran) injection 4 mg 4 mg, Intravenous, Once as needed, 1 dose, Starting on Tue07/10/25 at 1719, Until Tue07/10/25 at 1743, Routine, Recovery (Phase I only), nausea, vomiting Given 07/10/2025 5:43 PM EDT 4 mg ondansetron (Zofran) injection 4 mg 4 mg, Intravenous, Once, 1 dose, On Tomasa 07/11/25 at 0015, Routine, Recovery(Phase II-Outpatient)/On Unit(Inpatient) Given 07/10/2025 11:31 PM EDT 4 mg ondansetron (Zofran) injection 4 mg 4 mg, Intravenous, Every 6 hours PRN, Starting on Tomasa 07/11/25 at 0712, Until Tomasa 07/18/25 at 1014, Routine, vomiting, nausea Given 07/14/2025 3:56 AM EDT 4 mg Given 07/12/2025 3:10 PM EDT 4 mg ondansetron (Zofran) injection 4 mg 4 mg, Intravenous, Once as needed, 1 dose, Starting on Tue07/14/25 at 1600, Until Tue07/14/25 at 1709, Routine, Recovery (Phase I only), nausea, vomiting Given 07/14/2025 5:09 PM EDT 4 mg ondansetron ODT (Zofran-ODT) disintegrating tablet 4 mg 4 mg, Oral, Every 6 hours PRN, Starting on Tomasa 07/11/25 at 0712, Until Tue07/19/25 at 1456, Routine, nausea, vomiting Given 07/18/2025 6:12 PM EDT 4 mg Given 07/15/2025 6:20 PM EDT 4 mg Given 07/13/2025 3:25 AM EDT 4 mg oxyCODONE (Roxicodone) immediate release tablet 10 mg 10 mg, Oral, Every 6 hours PRN, Starting on Tomasa 07/11/25 at 0837, Until Tue07/19/25 at 1456, Routine, severe pain Given 07/19/2025 7:15 AM EDT 10 mg Given 07/19/2025 12:54 AM EDT 10 mg Given 07/18/2025 8:51 AM EDT 10 mg oxyCODONE (Roxicodone) immediate release tablet 5 mg 5 mg, Oral, Every 6 hours PRN, Starting on Tue07/11/25 at 0837, Until Tue07/19/25 at 1456, Routine, moderate pain Given 07/16/2025 9:07 PM EDT 5 mg Given 07/16/2025 6:27 AM EDT 5 mg Given 07/12/2025 12:20 AM EDT 5 mg oxyCODONE (Roxicodone) immediate release tablet 5 mg 5 mg, Oral, Every Tue-Tue-Tue, First dose on Tue07/19/25 at 1115, Until Discontinued, Routine phosphorus (K Phos Neutral) tablet 1 tablet 1 tablet, Oral, Every 12 hours, 2 doses, First dose on Tue07/12/25 at 0345, Last dose on Tue07/12/25 at 1545, Routine Given 07/12/2025 3:00 PM EDT 1 tablet Given 07/12/2025 3:20 AM EDT 1 tablet polyethylene glycol (Miralax) packet 17 g 17 g, Oral, Daily, First dose on Tue07/12/25 at 1045, Until Discontinued, Routine Given 07/12/2025 10:48 AM EDT 17 g potassium chloride CR (Klor-Con) ER tablet 20 mEq 20 mEq, Oral, Once, 1 dose, On Tue07/12/25 at 0500, Routine Given 07/12/2025 5:41 AM EDT 20 mEq potassium chloride CR (Klor-Con) ER tablet 20 mEq 20 mEq, Oral, Once, 1 dose, On Tue07/13/25 at 1315, Routine Given 07/13/2025 1:10 PM EDT 20 mEq potassium chloride CR (Klor-Con) ER tablet 40 mEq 40 mEq, Oral, Once, 1 dose, On Tue07/12/25 at 0345, Routine Given 07/12/2025 3:20 AM EDT 40 mEq potassium chloride IVPB 10 mEq 10 mEq, Intravenous, Every 1 hour, 2 doses, First dose on Tue07/09/25 at 0330, Last dose on Tue07/09/25 at 0430, Routine, Recovery(Phase II-Outpatient)/On Unit(Inpatient)Indications:Hypokal emia New Bag 07/09/2025 4:55 AM EDT 10 mEq 100 mL/hr New Bag 07/09/2025 3:52 AM EDT 10 mEq 100 mL/hr Povidone-Iodine 5 % swab solution 1 Application Nasal, Once, 1 dose, On Tue07/14/25 at 1445, Routine Given 07/14/2025 2:00 PM EDT 1 Application propofol (Diprivan) infusion 10 mg/mL 10-50 mcg/kg/min 177 kg (10.62-53.1 mL/hr), Intravenous, Titrated, Starting on Tue07/09/25 at 0015, Until Tue07/10/25 at 1707, Routine Rate/Dose Verify 07/10/2025 3:00 PM EDT 20 mcg/kg/min 21.2 mL/hr Rate/Dose Verify 07/10/2025 2:00 PM EDT 20 mcg/kg/min 21.2 mL/hr New Bag 07/10/2025 1:20 PM EDT 20 mcg/kg/min 21.2 mL/hr rosuvastatin (Crestor) tablet 20 mg 20 mg, Oral, Nightly, First dose on Tue07/11/25 at 2100, Until Discontinued, Routine Given 07/18/2025 9:14 PM EDT 20 mg Given 07/17/2025 8:19 PM EDT 20 mg Given 07/16/2025 9:08 PM EDT 20 mg senna-docusate (Leann-Colace) 8.6-50 MG per tablet 1 tablet 1 tablet, Oral, Nightly, First dose on Tue07/11/25 at 2100, Until Discontinued, Routine Given 07/11/2025 8:46 PM EDT 1 tablet senna-docusate (Leann-Colace) 8.6-50 MG per tablet 1 tablet 1 tablet, Oral, 2 times daily, First dose (after last modification) on Tue07/12/25 at 2100, Until Discontinued, Routine Given 07/18/2025 9:15 PM EDT 1 tablet sodium chloride 0.9 % flush 10 mL 10 mL, Intravenous, Every 12 hours, First dose on Tue07/09/25 at 0030, Until Discontinued, Routine Given 07/19/2025 12:56 AM EDT 10 mL Given 07/17/2025 11:12 PM EDT 10 mL Given 07/17/2025 12:00 AM EDT 10 mL sodium chloride 0.9 % flush 10 mL 10 mL, Intravenous, Every 12 hours, First dose on Tue07/14/25 at 1445, Until Discontinued, Routine, Holding - Preprocedure Given 07/14/2025 2:00 PM EDT 10 mL Sodium Phosphate-NaCl IVPB 15 mmol 15 mmol, Intravenous, Once, 1 dose, On Tue07/15/25 at 1000, Routine Given 07/15/2025 11:28 AM EDT 15 mmol 62.5 mL/hr vasopressin (Vasostrict) 20 Units in sodium chloride 0.9 % 100 mL (0.2 Units/mL) infusion 0.03 Units/min (9 mL/hr), 0.2 units/mL, Intravenous, Continuous, Starting on Tue07/10/25 at 0730, Until Tue07/12/25 at 0624, STAT Rate/Dose Verify 07/11/2025 12:00 PM EDT 0.03 Units/min 9 mL/hr Rate/Dose Verify 07/11/2025 11:00 AM EDT 0.03 Units/min 9 mL/hr Rate/Dose Verify 07/11/2025 10:00 AM EDT 0.03 Units/min 9 mL/hr documented in this encounter Active and Recently Administered Medications Times are shown in EDT. Scheduled Medication Order 07/17/2025 07/18/2025 07/19/2025 acetaminophen (Tylenol) tablet 1,000 mg 1,000 mg, Oral, Every 6 hours scheduled, First dose on Tue07/11/25 at 1200, Until Discontinued, Routine 0043 (Not Given - Provider: Eulalia Estrada RN - Reason: Patient/family refused)0526 (Given - Provider: Eulalia Estrada RN)1215 (Given - Provider: Josi Ann RN)1800 (Given - Provider: Josi Ann RN)2309 (Given - Provider: Inessa Almazan RN) 0543 (Given - Provider: Inessa Almazan RN)1316 (Given - Provider: Josi Ann RN)1812 (Given - Provider: Josi Ann RN) 0038 (Given - Provider: Inessa Almazan RN)0607 (Given - Provider: Inessa Almazan RN)1230 (Given - Provider: Junior Sabrina Santos) busPIRone (Buspar) tablet 15 mg 15 mg, Oral, 2 times daily, First dose (after last modification) on Tue07/16/25 at 1115, Until Discontinued, Routine 1001 (Given - Provider: Josi Ann RN)2019 (Given - Provider: Inessa Almazan RN) 0852 (Given - Provider: Josi Ann RN)2113 (Given - Provider: Inessa Almazan RN) 0839 (Given - Provider: Junior Sabrina Santos) DULoxetine (Cymbalta) DR capsule 60 mg 60 mg, Oral, Daily, First dose on Tue07/12/25 at 0900, Until Discontinued, Routine 1001 (Given - Provider: Josi Ann RN) 0852 (Given - Provider: Josi Ann RN) 0839 (Given - Provider: Junior Sabrina Santos) enoxaparin (Lovenox) syringe 40 mg 40 mg, Subcutaneous, 2 times daily, First dose on Tue07/10/25 at 1800, Until Discontinued, Routine 1001 (Given - Provider: Josi Ann RN)2018 (Given - Provider: Inessa Almazan RN) 0851 (Given - Provider: Josi Ann RN)2114 (Given - Provider: Inessa Almazan RN) 0839 (Given - Provider: Junior Sabrina Santos) HYDROmorphone (Dilaudid) injection 0.25 mg (COMPLETED) 0.25 mg, Intravenous, Once, 1 dose, On Tue07/19/25 at 0315, Routine 0223 (Given - Provider: Inessa Almazan RN) HYDROmorphone (Dilaudid) injection 0.5 mg (COMPLETED) 0.5 mg, Intravenous, Once, 1 dose, On Tue07/17/25 at 1600, Routine, Sign 1540 (Given - Provider: Madeline Girard RN) insulin glargine-yfgn 100 UNIT/ML injection 10 Units 10 Units, Subcutaneous, Nightly, First dose (after last modification) on Tue07/19/25 at 2100, Until Discontinued, Routine insulin glargine-yfgn 100 UNIT/ML injection 8 Units (CANCELED) 8 Units, Subcutaneous, Nightly, First dose (after last modification) on Tue07/17/25 at 2100, Until Discontinued, Routine 2234 (Given - Provider: Inessa Almazan RN) 212 (Given - Provider: Inessa Almazan RN) insulin lispro (Admelog) 100 units/mL injection - Correction - Standard Dose 0-5 Units, Subcutaneous, 3 times daily with meals, First dose on Tue07/11/25 at 1730, Until Discontinued, Routine 0954 (Not Given - Provider: Josi Ann RN - Reason: Order parameters not met - Comment: 139)1215 (Given - Provider: Josi Ann RN)1724 (Not Given - Provider: Josi Ann RN - Reason: Order parameters not met) 0856 (Not Given - Provider: Josi Ann RN - Reason: Order parameters not met)1333 (Not Given - Provider: Josi Ann RN - Reason: Patient/family refused)1812 (Given - Provider: Josi Ann RN) 0957 (Not Given - Provider: Kalyn Martell RN - Reason: Patient/family refused)1232 (Not Given - Provider: Kalyn Martell RN - Reason: Patient/family refused) insulin lispro (Admelog) injection - Correction - Nighttime Dose 0-3 Units, Subcutaneous, 2 times nightly (2100 & 299), First dose on Tue07/11/25 at 2100, Until Discontinued, Routine 030 (Not Given - Provider: Eulalia Estrada RN - Reason: Order parameters not met)223 (Not Given - Provider: Inessa Almazan RN - Reason: Order parameters not met) 030 (Not Given - Provider: Inessa Almazan RN - Reason: Order parameters not met)212 (Not Given - Provider: Inessa Almazan RN - Reason: Order parameters not met) 030 (Not Given - Provider: Inessa Almazan RN - Reason: Order parameters not met) ipratropium-albuterol (Duo-Neb) 0.5-2.5 mg/3 mL nebulizer solution 3 mL (CANCELED) 3 mL, Nebulization, Every 6 hours RT, First dose (after last modification) on Tue07/16/25 at 1500, Until Discontinued, Routine 0359 (Given - Provider: Naomi Nelson)0835 (Given - Provider: Suzan Roa)1557 (Given - Provider: Suzan Roa)1939 (Given - Provider: Chichi Dang) 0308 (Not Given - Provider: Chichi Dang - Reason: Patient/family refused)0818 (Given - Provider: Marilee Wilson)1523 (Given - Provider: Marilee Wilson)2030 (Given - Provider: Naomi Nelson) 0338 (Given - Provider: Naomi Nelson) Jose powder 1 packet 1 packet, Oral, 2 times daily, First dose on Tue07/15/25 at 0900, Until Discontinued, Routine, Recovery(Phase II-Outpatient)/On Unit(Inpatient) 1001 (Given - Provider: Josi Ann RN)2017 (Given - Provider: Inessa Almazan RN) 0852 (Given - Provider: Josi Ann RN)2114 (Given - Provider: Inessa Almazan, NAHID) 09 (Not Given - Provider: Kalyn Martell RN - Reason: Patient/family refused) lamoTRIgine (LaMICtal XR) 24 hr tablet 100 mg 100 mg, Oral, Nightly, First dose on Tomasa 07/11/25 at 2000, Until Discontinued, Routine 2017 (Given - Provider: Inessa Almazan RN) 2122 (Given - Provider: Inessa Almazan RN) magnesium sulfate IVPB 2 g (COMPLETED) 2 g, Intravenous, Once, 1 dose, On Tue07/17/25 at 0730, Routine 1001 (New Bag - Provider: Josi Ann RN) magnesium sulfate IVPB 2 g (COMPLETED) 2 g, Intravenous, Once, 1 dose, On Tue07/19/25 at 0645, Routine 0608 (New Bag - Provider: Inessa Almazan RN) methocarbamol (Robaxin) tablet 750 mg 750 mg, Oral, 3 times daily, First dose on Tomasa 07/11/25 at 1100, Until Discontinued, Routine 1001 (Given - Provider: Josi Ann RN)1658 (Given - Provider: Josi Ann RN)2019 (Given - Provider: Inessa Almazan RN) 0851 (Given - Provider: Josi Ann RN)181 (Not Given - Provider: Josi Ann RN - Reason: Hold for condition: must add comment - Comment: pt off floor)2113 (Given - Provider: Inessa Almazan RN) 839 (Given - Provider: Junior Sabrina Santos) metoprolol succinate XL (Toprol-XL) 24 hr tablet 100 mg 100 mg, Oral, Nightly, First dose on Tue07/16/25 at 2100, Until Discontinued, Routine 2017 (Given - Provider: Inessa Almazan RN) 2113 (Given - Provider: Inessa Almazan RN) oxyCODONE (Roxicodone) immediate release tablet 5 mg 5 mg, Oral, Every Tue-Tue-Tue, First dose on Tue07/19/25 at 1115, Until Discontinued, Routine 1150 (Not Given - Provider: Kalyn Martell RN - Reason: Hold for condition: must add comment - Comment: no wv in place due to [facility] dc) polyethylene glycol (Miralax) packet 17 g 17 g, Oral, Daily, First dose on Tue07/12/25 at 1045, Until Discontinued, Routine 1001 (Not Given - Provider: Josi Ann RN - Reason: Patient/family refused) 08 (Not Given - Provider: Josi Ann RN - Reason: Patient/family refused) 09 (Not Given - Provider: Kalyn Martell RN - Reason: Patient/family refused) rosuvastatin (Crestor) tablet 20 mg 20 mg, Oral, Nightly, First dose on Tue07/11/25 at 2100, Until Discontinued, Routine 2018 (Given - Provider: Inessa Almazan RN) 2113 (Given - Provider: Inessa Almazan RN) senna-docusate (Leann-Colace) 8.6-50 MG per tablet 1 tablet 1 tablet, Oral, 2 times daily, First dose (after last modification) on Tue07/12/25 at 2100, Until Discontinued, Routine 1001 (Not Given - Provider: Josi Ann RN - Reason: Patient/family refused)2018 (Not Given - Provider: Inessa Almazan RN - Reason: Patient/family refused) 08 (Not Given - Provider: Josi Ann RN - Reason: Patient/family refused)2114 (Given - Provider: Inessa Almazan RN) 09 (Not Given - Provider: Kalyn Martell RN - Reason: Patient/family refused) sodium chloride 0.9 % flush 10 mL 10 mL, Intravenous, Every 12 hours, First dose on Tue07/09/25 at 0030, Until Discontinued, Routine 0000 (Given - Provider: Eulalia Estrada RN)1245 (Canceled Entry - Provider: Josi Ann RN)2312 (Given - Provider: Inessa Almazan, RN) 1242 (Canceled Entry - Provider: Josi Ann RN) 0056 (Given - Provider: Inessa Almazan RN)1232 (Not Given - Provider: Kalyn Martell RN - Reason: Hold for condition: must add comment - Comment: dc) PRN Medication Order 07/17/2025 07/18/2025 07/19/2025 busPIRone (Buspar) tablet 15 mg 15 mg, Oral, Daily PRN, Starting on Tue07/16/25 at 1027, Until Tue07/19/25 at 1456, Routine, anxiety, per patient request 1316 (Given - Provider: Josi Ann RN) dextrose 10 % (D10W) bolus 125 mL(Linked Group 1) 125 mL, Intravenous, Every 15 min PRN, Starting on Tue07/08/25 at 2053, Until Tue07/19/25 at 1456, Administer over 15 Minutes, Routine, low blood sugar BG 51-89 mg/dL dextrose 10 % (D10W) bolus 250 mL(Linked Group 1) 250 mL, Intravenous, Every 15 min PRN, Starting on Tue07/08/25 at 2053, Until Tue07/19/25 at 1456, Administer over 15 Minutes, Routine, PRN low blood sugar BG =/<50 mg/dL glucagon (human recombinant) injection 1 mg(Linked Group 1) 1 mg, Intramuscular, Every 15 min PRN, Starting on Tue07/08/25 at 2053, Until Tue07/19/25 at 1456, Routine, low blood sugar per Hypoglycemia Prevention and Treatment protocol ipratropium-albuterol (Duo-Neb) 0.5-2.5 mg/3 mL nebulizer solution 3 mL 3 mL, Nebulization, Every 6 hours PRN, Starting on Tue07/19/25 at 0730, Until Tue07/19/25 at 1456, Routine, wheezing ondansetron ODT (Zofran-ODT) disintegrating tablet 4 mg(Linked Group 2) 4 mg, Oral, Every 6 hours PRN, Starting on Tomasa 07/11/25 at 0712, Until Tue07/19/25 at 1456, Routine, nausea, vomiting 1812 (Given - Provider: Josi Ann RN) oxyCODONE (Roxicodone) immediate release tablet 10 mg(Linked Group 3) 10 mg, Oral, Every 6 hours PRN, Starting on Tomasa 07/11/25 at 0837, Until Tue07/19/25 at 1456, Routine, severe pain 0526 (Given - Provider: Eulalia Estrada RN)1658 (Given - Provider: Josi Ann RN)2308 (Given - Provider: Inessa Almazan RN) 0851 (Given - Provider: Josi Ann RN) 0054 (Given - Provider: Inessa Almazan RN)0715 (Given - Provider: Junior Sabrina Santos) oxyCODONE (Roxicodone) immediate release tablet 5 mg(Linked Group 3) 5 mg, Oral, Every 6 hours PRN, Starting on Tomasa 07/11/25 at 0837, Until Tue07/19/25 at 1456, Routine, moderate pain 0526 (See Alternative - Provider: Eulalia Estrada RN)1658 (See Alternative - Provider: Josi Ann RN)2308 (See Alternative - Provider: Inessa Almazan RN) 0851 (See Alternative - Provider: Josi Ann RN) 0054 (See Alternative - Provider: Inessa Almazan RN)0715 (See Alternative - Provider: Junior Sabrina Santos) Linked Groups Order Group 1: glucose (Glutose) 40 % oral gel 15-30 grams of glucose (CANCELED) 15-30 grams of glucose, Sublingual, Every 15 min PRN, Starting on Tue07/08/25 at 2053, Until Tue07/16/25 at 1005, Routine, low blood sugar, per Hypoglycemia Prevention and Treatment protocol Or dextrose 10 % (D10W) bolus 125 mLJump to med 125 mL, Intravenous, Every 15 min PRN, Starting on 07/08/25 at 2053, Until Tue07/19/25 at 1456, Administer over 15 Minutes, Routine, low blood sugar BG 51-89 mg/dL Or dextrose 10 % (D10W) bolus 250 mLJump to med 250 mL, Intravenous, Every 15 min PRN, Starting on Tue07/08/25 at 2053, Until Tue07/19/25 at 1456, Administer over 15 Minutes, Routine, PRN low blood sugar BG =/<50 mg/dL Or glucagon (human recombinant) injection 1 mgJump to med 1 mg, Intramuscular, Every 15 min PRN, Starting on Tue07/08/25 at 2053, Until Tue07/19/25 at 1456, Routine, low blood sugar per Hypoglycemia Prevention and Treatment protocol Group 2: ondansetron ODT (Zofran-ODT) disintegrating tablet 4 mgJump to med 4 mg, Oral, Every 6 hours PRN, Starting on Tomasa 07/11/25 at 0712, Until Tue07/19/25 at 1456, Routine, nausea, vomiting Or ondansetron (Zofran) injection 4 mg (CANCELED) 4 mg, Intravenous, Every 6 hours PRN, Starting on Tomasa 07/11/25 at 0712, Until Tomasa 07/18/25 at 1014, Routine, vomiting, nausea Or ondansetron (Zofran) 4 MG/5ML solution 4 mg (CANCELED) 4 mg, Oral, Every 6 hours PRN, Starting on Tomasa 07/11/25 at 0712, Until Tomasa 07/11/25 at 0715, Routine, nausea, vomiting Group 3: oxyCODONE (Roxicodone) immediate release tablet 5 mgJump to med 5 mg, Oral, Every 6 hours PRN, Starting on Tomasa 07/11/25 at 0837, Until Tue07/19/25 at 1456, Routine, moderate pain Or oxyCODONE (Roxicodone) immediate release tablet 10 mgJump to med 10 mg, Oral, Every 6 hours PRN, Starting on Tomasa 07/11/25 at 0837, Until Tue07/19/25 at 1456, Routine, severe pain documented in this encounter Additional Health Concerns Assessment Noted Time PHQ-9 Depression Total Score: 16 08/31/ 023 9:36 AM EDT A fall risk assessment has been complete d for the patient 08/31/2023 9:38 AM EDT A Body Mass Index follow-up plan has been documented for the patient 07/19/2025 10:51 AM EDT documented as of this encounter Care Teams Air Marshal Relationship Specialty Start Date End Date Yenny Dhillon APRN [address] [phone] PCP - General 07/22/23 documented as of this encounter
--- OUTSIDE RECORDS SUMMARY | 2025-07-08 20:00 | XMS_ITS | Encounter Summary ---
Author Organization Healthcare Address [address] [place] [address] Care Team Providers Care Drywall Stripper Helper Name Role Phone Yenny Dhillon APRN Primary Care Provider [phone] Reason for Visit * Reason Comments Wound Check * Auth/Cert (Routine) Specialty Diagnoses / Procedures Referred By Bharati wiggins Referred To Contact Diagnoses Necrotizing fasciitis ([facility]) Necrotizing Fascitis Luanne Crawford MD [address] [address] Phone: tel: fax: [facility] A Inpatient [address] [place] [address] Phone: tel: Referral ID Status Reason Start Date Expiration Date Visits Re quested Visits Authorized [id number] 1 1 Encounter Details Date Type Department Care Team (Late st Contact Info) Description 07/08/2025 8:00 PM EDT - 07/08/2025 9:30 PM EDT Surgery [facility] OPERATING ROOM [address] [place] [address] Luanne Crawford MD [address] [address] IRRIGATION AND DEBRIDEMENT, WOUND [53496 (CPT )] Surgery Details Date/Time Status Location [...] dressing in place, sutures removed on rounds. [facility] can re- apply negative pressurewound therapy: Wound [...] please call our General Surgery Clinic at [phone]. If there are questions or concerns after discharge from the hospital, call Radha Ugalde, Nurse Coordinator between 7am-3pm at [phone]. If it is after hours, weekends, and holidays please call [phone] and ask for the resident early education teacher for Emergency General Surgery. Medication requests should be made between the hours of 9:00 AM to 3:00 PM Tuesday thru Tuesday. Please note that based upon recent changes to [place] law related to prescribing opioid pain medications, [...] Outcome: Met Intervention: Promote Activity and Functional Pope Flowsheets Taken 07/18/20252319 by Inessa Almazan, RN [...] Pain Flowsheets Taken 07/19/2025222 by Inessa Almazan, clinical laboratory director Interventions: medication (see MAR) Taken 07/18/2025 [address] [...] Discharge Note Cristina Brown 50 y.o. female [facility]: [id number] Admission: 07/08/2025 5:58 PM Primary Problem: Necrotizing fasciitis (CMS/HCC) Primary Residential Glazier: Primary Caregiver: Self Assistance Available at Discharge: [...] Community Agency(s): Patient's Choice of Community Agency(s): [facility] Patient/Family Anticipated Services at Transition: Patient/Family Anticipated Services at Transition: rehabilitation services DME/Equipment Needed after Discharge: Equipment Currently Used at Home: none Equipment Needed After Discharge: lilly lundy Readmission Within the Last 30 Days: Readmission Within the Last 30 Days: unable to assess Medicare Documentation: N/A Follow-up: Keaton Patel MD [address] [place] [address] [facility] ([facility]) [address] [phone] Go on 07/19/2025 Discharge Transportation: Transportation Anticipated: [...] arranged for this date at 1400 from [facility]. Annie Littlejohn * Gauri Rico - Raj Cardona, RN - 07/19/2025 9:44 AM EDT Images from the original note were not included. 1087 Oxycodone Oral Tablet, Immediate Release Brand Names: Oxaydo, Roxicodone What is this medicine? Oxycodone (id-t-WUJ-done) is an opioid pain reliever. It is used to treat moderate to severe pain. What should I tell my health care provider before I take this medicine? They need to know if you have any of these conditions: ? Griggs's disease ? Brain tumor or head injury [...] a special medication guide each time you sampler pickup this medicine. ? Overdosage: Taking too much [...] should report to your doctor or health director of medicare as soon as possible: ? allergic reactions [...] attention (report to your doctor or health director of medicare if they continue or are bothersome): ? constipation ? dry mouth ? itching ? nausea, vomiting ? upset stomach This list may not describe all possible side effects. Call your doctor for medical advice about side effects. You may report side effects to FDA at 0-605-QYI-8457. Where should I keep my medicine? This [...] location. To find a disposal location, visit Muse/[facility]. If you cannot take unused medicine to [...] from the original note were not included. [id number] Naloxone Nasal Drew WHY is this medicine prescribed? Prescription and [...] pharmacist for the instructions or visit the store planner's website to get the instructions. You should [...] or doctor for a copy of the store planner's information for the patient. Are there OTHER [...] and out of their sight and reach. [email or web address]://www.[email or web address].[employer]. Dispose of unneeded medications in a way [...] of all of the prescription and nonprescription (bejr-slk-fnxtdmo) medicines, vitamins, minerals, and dietary supplements you [...] or pharmacist about specific clinical use. The [employer] Society of Health-System Pharmacists, Inc. represents that the information provided hereunder was formulated with a reasonable standard of care, and in conformity with professional standards in the field. The [employer] Society of Health-System Pharmacists, Inc. makes no representations or warranties, express or implied, including, but not limited to, any implied warranty of merchantability and/or fitness for a particular purpose, with respect to such information and specifically disclaims all such warranties. Users are advised that decisions regarding drug therapy are complex medical decisions requiring the independent, informed decision of an appropriate health director of medicare, and the information is provided for informational purposes only. The entire monograph for a drug should be reviewed for a thorough understanding of the drug's actions, uses and side effects. The Indian Society of Health-System Pharmacists, Inc. does not endorse or recommend the use of any drug.The information is not a substitute for medical care. AHFS?? Patient Medication Information?. ?? Copyright, 2023. The Indian Society of Health-System Pharmacists??, [address], [address], [place], [place]. All Rights Reserved. Duplication for commercial use must be authorized by [facility]. Selected Revisions: May 26, 2024. AHFS?? Patient Medication Information?. ?? Copyright, 2024 * [facility] - Raj Cardona RN - 07/19/2025 9:44 [...] controlled substances: ? Drug Enforcement Agency (HARIS): http://www.deadiversion.LocationaryoLaunchSide.com.gov/drug_disposal/takeback/index.htm ? National Association of Drug Diversion Investigators (NADDI): http://rxdrugdropbox.org/ ? [place] Office of Drug Control Policy: http://odcp.dc.gov/Prescription+Drug+Drop+Box+Sites.htm Are there concerns about or ? ? [...] that tracks prescriptions of controlled substances in [place]. The DANYELLE report tells your doctor if [...] or your doctor may then call the [place] Drug Enforcement and Professional Practices Branch at .This will start an investigation of the error. * Gauri LouieJANETH - Raj Cardona RN - 07/19/2025 9:44 AM EDT Images from the original note were not included. 99733 Insulin: How to Use and Where to [...] ?needles? or ?sharps.? ? Call your local [employer] company to ask about removing the sharps container. You can also check withthe [facility] for Safe Community Needle Disposal at www.safeneedledisposal.org or 900-566-4380. Storing your insulin ? Keep unopened insulin [...] cold. Last Reviewed Date: 2023 00:00:00 ?? 1714-8554 The [employer]. All rights reserved. This information is not intended as a substitute for professional medical care. Always follow your healthcare professional's instructions. * Gauri Rico - Raj Cardona RN - 07/19/2025 9:43 AM EDT Images from the original note were not included. [id number] Diet: Diabetes Food is an important tool [...] of Nutrition and Dietetics at www.eatright.org o Indian Diabetes Association at www.diabetes.org or 432-791-0953 o Association of Diabetes Care and Education Specialists at www.diabeteseducator.org/ Last Reviewed Date: 2024 00:00:00 ?? The [employer]. All rights reserved. This information is not intended as a substitute for professional medical care. Always follow your healthcare professional's instructions. * [facility] Cardona [facility] - 07/19/2025 9:43 AM EDT Images from the original note were not included. 15591 Diabetes: Understanding Carbohydrates, Fats, and Protein Food [...] foods. Last Reviewed Date: 2024 00:00:00 ?? 9718-0099 The [employer]. All rights reserved. This information is not intended as a substitute for professional medical care. Always follow your healthcare professional's instructions. * Gauri LouieJANETH - Raj Cardona RN - 07/19/2025 9:43 AM EDT Images from the original note were not included. 20119 Discharge Instructions: Packing a Wound You have [...] chills. Last Reviewed Date: 2025 00:00:00 ?? 3628-5260 The [employer]. All rights reserved. This information is not intended as a substitute for professional medical care. Always follow your healthcare professional's instructions. * Gauri OnJANETH - Raj Cardona RN - 07/19/2025 9:43 AM EDT Images from the original note were not included. 58400 Negative Pressure Wound Therapy Negative pressure wound [...] device. Last Reviewed Date: 2024 00:00:00 ?? 4018-0189 The [employer]. All rights reserved. This information is not intended as a substitute for professional medical care. Always follow your healthcare professional's instructions. * Gauri Rico - Raj Cardona RN - 07/19/2025 9:43 AM EDT Images from the original note were not included. 89112 Discharge Instructions: Changing Your Dressing You are [...] doctor. Last Reviewed Date: 2025 00:00:00 ?? 0570-3129 The [employer]. All rights reserved. This information is not intended as a substitute for professional medical care. Always follow your healthcare professional's instructions. * [facility] - Raj Cardona RN - 07/19/2025 9:42 AM EDT Images from the original note were not included. [id number] Abscess (Incision and Drainage) An abscess is [...] treatment. Last Reviewed Date: 2024 00:00:00 ?? 4912-6369 The TheWrap. All rights reserved. This information is not intended as a substitute for professional medical care. Always follow your healthcare professional's instructions. * Guari Rico - Raj Cardona RN - 07/19/2025 9:42 AM EDT Images from the original note were not included. 00027 Preventing a Surgical Site Infection A risk [...] of infection. ? Controlled body temperature. A mwlao-zxkv-tilrfi temperature during or after surgery prevents oxygen [...] and water or with an alcohol-based hand waiter/waitress tavern before and after caring for you. Don?t [...] away. Last Reviewed Date: 2024 00:00:00 ?? 3614-0679 The The[employer]. All rights reserved. This information is not intended as a substitute for professional medical care. Always follow your healthcare professional's instructions. * [facility] - Raj Cardona RN - 07/19/2025 9:42 [...] to the condition itself. It comes from Yakut and Latin words for a gnawing sore [...] questions. Last Reviewed Date: 2023 00:00:00 ?? 1147-2307 The TheWrap. All rights reserved. This information is not [...] MD PCP name and Address: Yenny Dhillon, VEGETABLE FARM WORKER [address] [address] [facility] Referring provider name and address: Keaton Patel MD [address] [place] [address] [place] [facility] Chief Concern, Brief History of Present Illness, and Hospital Course Cristina Brown is a 50 y.o. female with PMH of DM, hidradenitis supparativa, current smoker (1.5ppd), hx of absent seizures, UTI, depression, anxiety, asthma, HLD, celiac disease, presenting to [facility] on 07/08/2025 as transfer with concern [...] stay, and so will be discharged to [facility]. Surgeries and Procedures Procedures performed in this [...] Your Medications These medications were sent to [facility] [place], [place] - [address] [facility] [facility] [address] [facility] [address] naloxone 4 mg/0.1 mL nasal spray Information [...] 07/11/2025 9:23 AM by Gabriel Segovia - [facility]. - Continue Albuterol and DuoNebs. [...] - Improving, continue to monitor Septic shock ([facility]) Overview Addendum 07/12/2025 1:55 PM by [...] dressing in place, sutures removed on rounds. [facility] can re- apply negative pressurewound therapy: Wound [...] please call our General Surgery Clinic at [phone]. If there are questions or concerns after discharge from the hospital, call Radha Ugalde, Nurse Coordinator between 7am-3pm at [phone]. If it is after hours, weekends, and holidays please call [phone] and ask for the resident early education teacher for Emergency General Surgery. Medication requests should be made between the hours of 9:00 AM to 3:00 PM Tuesday thru Tuesday. Please note that based upon recent changes to [place] law related to prescribing opioid pain medications, [...] normal. Judgment: Judgment normal. Discharge Disposition/Condition Disposition: [facility] Condition: Stable (s/sx potential problems absent [...] (H) 07/17/2025 I reviewed bg tracing in [facility] glucose timeline 07/19/25 ASSESSMENT Hospital Course: Cristina Brown is a 50 y.o. female with hx of type 2 DM, morbid obesity, hidradenitis supparativa, current smoker (1.5 ppd), hx of absent seizures, UTI, depression, anxiety, asthma, HLD, celiac disease who initially came to [facility] on 07/08/2025 as transfer with concern [...] to establish care with endocrine provider in [place], [place]. --> Provided patient with address and number of clinic. [[facility] End[facility] Clinic in the [facility]]. -Tentative discharge recommendations: Likely [...] team via secure chat orpage us at [phone] during 7a-7p, Tuesday-Tuesday. For after hours please [...] and newly diagnosed JOSEP who presented to [facility] with leukocytosis and exam findings consistent [...] the brett pad. After discussion with chief early education teacher, decision was made to remove the [place] and place a nup-pjo-cqqfxiqd with Kerlix, Polymem, ABD pads, and skin [...] Note Cristina Brown 50 y.o. female CSN: [id number] Admission: 07/08/2025 5:58 PM Primary Problem: Necrotizing fasciitis (CMS/HCC) Anticipated Discharge Date: 07/19/25 Has Discharge Plans Changed? Yes [facility] Acute Rehab Medicare Second Notice: Housing Circumstances: Low Income ( 101-300% Federal Poverty Guideline) Housing Circumstances Action Taken: Medically Ready for Discharge: Anticipated Tomorrow Additional Comments Per the MD pt is medically ready to d/c after she can tolerate her wv being changed without IV painmedication. SW talked with the pt and she is agreeable to go to [facility] however she still has a lot of [...] the MD team. Pt will transfer to [facility] via shuttle on 07/19 if all needs are addressed. Annie Littlejohn * Progress Notes - Sherrill Villa, VEGETABLE FARM WORKER - 07/18/2025 8:46 AM EDT Endocrine - [...] HLD, celiac disease who initially came to [facility] on 07/08/2025 as transfer with concern [...] to establish care with endocrine provider in [place]. --> Provided patient with address and number of clinic. [[facility] Clinic in the [facility]]. -Tentative discharge recommendations: Likely [...] Adult Inpatient Diabetes team via secure chat orpaCisco us at [phone] during -7p, Tuesday-Tuesday. For after hours please [...] Morbid (severe) obesity due to excess calories ([facility]) Complicates all aspect of care * [...] Ongoing, Progressing Intervention: Promote Activity and Functional Pope Flowsheets (Taken 07/18/2025204) Activity Assistance Provided: assistance, [...] Ongoing, Progressing Intervention: Promote Activity and Functional Pope Flowsheets Taken 07/16/2025 0635 by Yessenia Ramirez [...] (H) 07/15/2025 I reviewed bg tracing in [facility] glucose timeline 07/17/25 ASSESSMENT Hospital Course: Cristina Brown is a 50 y.o. female with hx of type 2 DM, morbid obesity, hidradenitis supparativa, current smoker (1.5 ppd), hx of absent seizures, UTI, depression, anxiety, asthma, HLD, celiac disease who initially came to [facility] on 07/08/2025 as transfer with concern [...] to establish care with endocrine provider in [place]. --> Provided patient with address and number of clinic. [[facility] Clinic in the [facility]]. -Tentative discharge recommendations: Likely [...] via secure chat or page us at [phone] during 7a-7p, Tuesday-Tuesday. For after hours please [...] care close to her sisters house in [place]. CM notified. * Assessment & Plan Note - Jason Andre MD - 07/17/2025 10:21 AM EDT Associated Problem(s): Necrotizing fasciitis ([facility]) - 07/09: debridement of necrotizing fasciitis [...] * Assessment & Plan Note - Jason Anrde MD - 07/17/2025 10:21 AM EDT Associated [...] 10:21 AM EDT Associated Problem(s): Septic shock (CMS/[facility]) Septic shock secondary to necrotizing fascitis. [...] 07/17/2025 10:18 AM EDT 07/17/25 Cristina Brown [facility] 50-year-old female with past medical history [...] admission Level of Mobility Ambulatory- community Mobility Pope Independent gait without device History of Falls [...] motivated and engaged throughout Visitors Present None Busgirl (if applicable) OBJECTIVE PAIN Rates pain at [...] needed areas of treatment space Level of Pope Interventions: Feeding Independent Edge of bed Patient [...] Level of Assistance: Moderate assistance Adaptive Equipment: Diabetes Physician, Sock aide Training and demonstration provided for use and functionality of sock aid, leg bus company manager strap and sound engineer audio control tool to support independence with LB dressing, [...] and prioritizing during ADL performance. Access Code: [email or web address] URL: [email or web address] Putting On Socks with a Sock Aid Putting On and Taking Off Pants Using a Diabetes Physician Using a Leg Transmitter Chief Adaptive Equipment for Bathing & Showering Understanding Energy Conservation BED MOBILITY Level of Pope Physical/Non- physical Assist Adaptive Equipment Utilized Supine to Sit Modified Pope Bed rails TRANSFERS Level of Pope Physical/Non- physical Assist Adaptive Equipment Utilized Sit [...] admission Level of Mobility Ambulatory- community Mobility Pope Independent gait without device History of Falls [...] unaware when pt may be discharged from [facility]. Busgirl (if applicable) Not Applicable OBJECTIVE & INTERVENTIONS [...] pt's true mobility BED MOBILITY Level of Pope Physical/Non- physical Assist Adaptive Equipment Utilized Rolling/ Turning Scooting/ Bridging Supine to Sit Modified Pope Bed rails Sit to Supine Interventions TRANSFERS Level of Pope Physical/Non- physical Assist Adaptive Equipment Utilized Sit to Stand Stand-by assist Supervision Rollator Stand to sit Stand-by assist Supervision Rollator Bed to Chair Toilet Transfer Shower Transfer Interventions BALANCE Postural Appearance Posture: Forward head, Rounded shoulders Level of Pope Balance Support Interventions Static Sit Standby assist Feet supported Dynamic Sit Contact guard Feet supported Dynamic Sitting-Balance: Lateral weight shifts, Anterior/Posterior weight shifts Static Stand Contact guard Right upper extremity support, Left upper extremity support Standing in room prior to ambulation Dynamic Stand Contact guard Right upper extremity support, Left upper extremity support 3 bouts of approx 1 min each AMBULATION Level of Pope Distance Adaptive Equipment Utilized Ambulation Contact guard [...] Care Flowsheets (Taken 07/14/2025 1800 by Josi nAn RN) Trust Relationship/Rapport: care explained choices provided [...] Ongoing, Progressing Intervention: Promote Activity and Functional Pope Flowsheets Taken 07/16/2025 0635 by Yessenia Ramirez [...] promoted Taken 07/14/2025 1800 by Josi Ann ritual circumciser/Support System Care: support provided Goal: Optimal Functional [...] encouraged Taken 07/14/2025 1800 by Josi Ann customs broker Review/Management: medications reviewed Intervention: Promote Injury-Free Environment Flowsheets (Taken 07/16/2025 1700 by Diego Munroe) Safety Promotion/Fall Prevention: safety round/check completed nonskid shoes/slippers when out of bed mobility aid in reach room organization consistent clutter-free environment maintained assistive device/personal items within reach Problem: Self-Care Deficit Goal: Improved Ability to Complete Activities of Daily Living Outcome: Ongoing, Progressing Intervention: Promote Activity and Functional Pope Flowsheets Taken 07/16/2025 0635 by Yessenia Ramirez [...] Colunga RN Flowsheets (Taken 07/16/2025128 by Eulalia Estraad RN) Progress: improving Plan of Care Reviewed [...] Management: ambulated to bathroom 07/16/2025 1808 by Ihsa Colunga RN Flowsheets (Taken 07/16/2025 1808) Activity Management: ambulated to bathroom Intervention: Promote and Optimize Oral Intake 07/16/2025 1810 by Isha Colunga RN Flowsheets (Taken 07/16/2025 0129 by Eulalia Estrada RN) Oral Nutrition Promotion: adaptive equipment use encouraged rest periods promoted 07/16/2025 1808 by Isha Colunga RN [...] RN Flowsheets (Taken 07/15/2025 1325 by Sophia Salazar RN) Infection Management: aseptic technique maintained [...] Ongoing, Progressing Intervention: Promote Activity and Functional Pope Flowsheets (Taken 07/16/2025 012 by Eulalia Estrada [...] pattern promoted Taken 07/16/2025128 by Eulalia Estrada, clinical laboratory director Interventions: (care plan) pillow support provided position [...] 3:01 PM EDT SW received call from Client Liaison offering assistance for d/c planning. Her Callback #[phone] * Progress Notes - Sherrill Villa APRN [...] (H) 07/14/2025 I reviewed bg tracing in [facility] glucose timeline 07/16/25 ASSESSMENT Hospital Course: Cristina Brown is a 50 y.o. female with hx of type 2 DM, morbid obesity, hidradenitis supparativa, current smoker (1.5 ppd), hx of absent seizures, UTI, depression, anxiety, asthma, HLD, celiac disease who initially came to [facility] on 07/08/2025 as transfer with concern [...] to establish care with endocrine provider in [place]. --> Provided patient with address and number of clinic. [[facility] End[facility]ology Clinic in the [facility]]. -Tentative discharge recommendations: Likely [...] team via secure chat orpage us at [phone] during 7a-7p, Tuesday-Tuesday. For after hours please [...] able. * Assessment & Plan Note - Jsaon Andre MD - 07/16/2025 6:52 AM EDT [...] Ongoing, Progressing Intervention: Promote Activity and Functional Pope Flowsheets (Taken 07/16/2025128) Self-Care Promotion: independence encouraged BADL personal objects within reach BADL personal routines maintained adaptive equipment use encouraged Problem: Wound Goal: Optimal Coping Outcome: Ongoing, Progressing Intervention: Support Patient and Family Response Flowsheets Taken 07/16/2025128 by Eulalia Estrada RN Supportive Measures: active listening utilized verbalization of feelings encouraged problem-solving facilitated relaxation techniques promoted Taken 07/14/2025 1800 by Josi Ann ritual circumciser/Support System Care: support provided Goal: Optimal Functional [...] Ongoing, Progressing Intervention: Promote Activity and Functional Pope Flowsheets Taken 07/15/2025 174 by Denia Boo [...] provided Taken 07/14/2025 1800 by Josi Ann ritual circumciser/Support System Care: support provided Goal: Optimal Functional [...] Note Cristina Brown 50 y.o. female CSN: [id number] Room/Bed 123/123A Nutrition evaluation type: follow-up Reason for evaluation: Hospital course: 50 y o F transferred from OSH with concern for necrotizing fasciitis; OR 07/08 for excisional debridement of RLE, groin, pubis, and abdominal wall of skin, subcutaneous tissue, and muscle fascia, [id number]. Septic shock secondary to NSTI. Intubated & [...] Supplemental oxygen O2 Delivery Method: Nasal cannula [place] Coma Scale Score: 15 Julián Scale Score: [...] Estimated Needs: Kcal: 25-27 kcal/kg adj bw (1853-3215 kcal/d) Protein: 1.5-1.7 g/kg adj bw (143-162 [...] Anxiety Asthma Carpal tunnel syndrome Depression Diabetes ([facility]) H/O absence seizures Hidradenitis High cholesterol [...] Progress Note Cristina Brown 50 y.o. female [facility]: [id number] Admission: 07/08/2025 5:58 PM Primary Problem: Necrotizing fasciitis ([facility]) Supervisor Phosphoric Acid reviewed chart and spoke with patient to complete this Initial Case Management Assessment. PCP: Yenny Dhillon APRN Emergency Contact: Extended Emergency Contact Information Primary Emergency Contact: Yecenia Lake Mobile Relation: Sister Preferred language: Vietnamese Busgirl needed? No Secondary Emergency Contact: Arnoldo Raymond Address: [address] [place] [address] Mobile Relation: Significant Other Preferred language: Vietnamese Busgirl needed? No Insurance: Primary Visit Coverage Payer Plan Sponsor Code Group Number Group Name [facility] Primary Visit Coverage Subscriber Subscriber ID Subscriber Name Subscriber SSN Subscriber Address [id number] CRISTINA BROWN [id number] [place], [place] [id number] Patient information: Primary Caregiver: Self Accompanied by/Relationship: Arnoldo Bachelor- significant other Support System: Immediate family, Extended family, Friends Daily Living Activities: Functional Status: Minimum assistance Living Arrangements: Family, Friends Type of Residence: Private residence [address] [place] [address] Smoker in the Home?: Yes Current DME: Equipment Currently Used at Home: none Income Information: Income Source: Unemployed Income/Expense Information: Expenses exceed income Current Resources Utilized: Food [place] Housing Circumstances-Z Codes: Housing Circumstances (select all [...] Dialysis Services: N/A Living Will/Advance Directive/Power of Director Sales Support /Guardian: N/A Additional Comments: Pt gets her medications from [facility] in [place] * Consults - Anupama [...] HLD, celiac disease who initially came to [facility] on 07/08/2025 as transfer with concern [...] after discharge close to her home at [place]. She agrees to call and make appointment [...] syringe 40 mg 40 mg Subcutaneous BID Ldiia Ellis MD 40 mg at 07/14/252011 insulin [...] Endocrinology referral - patient requested to see boss miner in [place], [place]. Provided patient with address and number of clinic. [[facility] in the [facility]]. Patient has been on insulin while hospitalized, but utilizing metformin at home with good compliance. Diabetes care complicated by celiac diagnosis - placed nutrition consult to help patient navigate gluten free and diabetes diet. * Assessment & Plan Note - Jason Andre MD - 07/15/2025 7:15 AM EDT Associated Problem(s): Necrotizing fasciitis ([facility]) - 07/09: debridement of necrotizing fasciitis [...] pain MMPC * Progress Notes - Jason Adnre MD - 07/15/2025 7:13 AM EDT 07/15/25 [...] Ongoing, Progressing Intervention: Promote Activity and Functional Pope Flowsheets Taken 07/14/20252310 by Rtia Alejandro RN Adaptive Equipment Use: long-handled shoe [...] Ongoing, Progressing Intervention: Promote Activity and Functional Pope Flowsheets (Taken 07/14/2025 1800) Activity Assistance Provided: [...] - 07/14/2025 5:22 PM EDT Patient: Cristina Brwon Anesthesia Type: general Vitals Value Taken Time [...] PM EDT Operative Note Date: 07/14/25 Location: [facility] Name: Cristina Brown, : 1975, Diagnoses: Pre-op Diagnosis Necrotizing fasciitis (CMS/HCC) Post-op Diagnosis Necrotizing fasciitis (CMS/HCC) Procedure(s): Wound irrigation Partial wound closure, total closed 30 cm length Attending Surgeon(s): * Anne Franco - Primary Diving Fisher(s): * Janell Cross MD - Resident - [...] (mL) 30 mL 07/14/25 1625 [REMOVED] NG/OG [place] [facility] mouth (Removed) Placement Verification [...] (mL) 49 mL 07/10/25 0000 [REMOVED] NG/OG [place] Sump 14 Fr Left nostril (Removed) Placement [...] of the procedure(s) and immediately available [facility] services the entire duration. See resident [...] Morbid (severe) obesity due to excess calories ([facility]) Complicates all aspect of care * [...] 07/14/2025 7:30 AM EDT 07/14/25 Cristina Brown [facility] 50-year-old female with past medical history [...] clutter-free environment maintained assistive device/personal items within [facility] fall prevention program maintained nonskid shoes/slippers [...] clutter-free environment maintained assistive device/personal items within [facility] fall prevention program maintained nonskid shoes/slippers [...] Ongoing, Progressing Intervention: Promote Activity and Functional Pope Flowsheets (Taken 07/13/20251826) Activity Assistance Provided: assistance, [...] Cristina Luz Brown 50 y.o. female CSN: [id number] Admission: 07/08/2025 5:58 PM Primary Problem: Necrotizing fasciitis (CMS/HCC) Supervisor Phosphoric Acid reviewed chart and spoke with Cristina to complete this Initial Case Management Assessment. PCP: Yenny Dhillon APRN Emergency Contact: Extended Emergency Contact Information Primary Emergency Contact: Yecenia Lake Mobile Relation: Sister Preferred language: Vietnamese Busgirl needed? No Secondary Emergency Contact: Arnoldo Raymond Address: [address] [place] [address] Mobile Relation: Significant Other Preferred language: Vietnamese Busgirl needed? No Insurance: Primary Visit Coverage Payer Plan Sponsor Code Group Number Group Name [facility] Primary Visit Coverage Subscriber Subscriber ID Subscriber Name Subscriber N Subscriber Address [id number] CRISTINA BROWN [id number] [place] [address] Patient information: Primary Caregiver: Self Accompanied by/Relationship: Arnoldo Raymond- significant other Support System: Immediate family Daily Living Activities: Functional Status: Independent Living Arrangements: Spouse/Significant other Type of Residence: Private residence [address] [place] [address] Current DME: Equipment Currently Used at Home: none Income Information: Housing Circumstances-Z Codes: Patient Referred to: Anticipated Discharge Date: unknown Patient's Discharge Goal: Referrals sent for Acute Rehab Assistance Available at Discharge: Arnoldo Raymond Discharge Transport: Arnoldo Raymond Follow Up Transport: Arnoldo raymond Home Health / Home Infusion / Outpatient Dialysis Services: none Living Will/Advance Directive/Power of Director Sales Support /Guardian: Additional Comments: CM discussed acute rehab placement with Cristina and Arnoldo Raymond. Their first choice is [facility] in [place], [place]. CM sent referrals in [facility]. Cristina will continue inpatient management for necrotizing [...] admitted 07/08/2025 for work-up of Necrotizing fasciitis ([facility]). Problem List Active Hospital Problems Diagnosis Date Noted Postoperative pain 07/13/2025 JOSEP (obstructive sleep apnea) 07/11/2025 HLD (hyperlipidemia) 07/10/2025 Acute respiratory failure 07/09/2025 Septic shock ([facility]) 07/09/2025 Absence seizure ([facility]) 07/09/2025 DM (diabetes mellitus) ([facility]) 07/08/2025 Hidradenitis 07/08/2025 HTN (hypertension), benign 08/31/2023 Urge incontinence 08/31/2023 Smoker 06/09/2023 Depression 06/09/2023 Morbid (severe) obesity due to excess calories ([facility]) 02/15/2022 Chronic obstructive pulmonary disease, unspecified ([facility]) 01/09/2022 Necrotizing fasciitis ([facility]) 07/08/2025 Procedures 07/11/2025 Procedure(s): APPLICATION OR [...] evaluation. Participants in Care Family/Caregiver Present: No Busgirl: Not Applicable Presentation Oxygen Therapy: Supplemental oxygen [...] admission Level of Mobility: Ambulatory- community Mobility Pope: Independent gait without device History of Falls: [...] Mobility Bed Mobility Exam: Scooting/Bridging Level of Pope: Contact guard (seated scoot once sitting up on EOB and able to wiggle back into recliner chair) Bed Mobility Exam: Supine to Sit Level of Pope: Moderate assist (50% patient's effort) Physical/Nonphysical Assist: Verbal Cues, Moderate cues, Additional assist utilized for safety, HOBelevated Assistive Device: Other (CHEMICAL LABORATORY CHIEF x2) Transfers Transfer Interventions: Patient performed sit < > stand x 3 reps total: Mod A from EOB, Min Afrom recliner chair, and CGA from BSC. Transfer Exam: Sit to stand Level of Pope: Minimum assist (75% patient's effort) Physical/Nonphysical Assist: Verbal Cues, Minimal cues Assistive Device: Walker, rolling (andrea) Transfer Exam: Stand to Sit Level of Pope: Minimum assist (75% patient's effort) Physical/Nonphysical Assist: Verbal Cues, Minimal cues Assistive Device: Walker, rolling (andrea) Transfer Exam: Bed to Chair/Chair to Bed Level of Pope: Minimum assist (75% patient's effort) Physical/Nonphysical Assist: Verbal Cues, Minimal cues, Additional assist utilized for safety Type of Transfer: Sidesteps (bed > chair < > BSC) Assistive Device: Walker, rolling (andrea) Toilet Transfer Level of Pope: Minimum assist (75% patient's effort) Physical/Nonphysical Assist: [...] to allow bedside care to take placed (BLOCKING MACHINE OPERATOR SECOND entering to take vitals; RN enforcing bandages [...] for further toileting ADL needs. Standardized Assessments [facility] 6-Click Daily Activities Help from Other: Don/Doff Regular Lower Body Clothings: A lot Help From Other: Bathing: A lot Help From Other: Toileting: A lot Help From Other: Don/Doff Upper Body Clothings: Little Help From Other: Grooming: None Help From Other: Eating Meals: None [facility] 6 Click - Daily Activities Score: 17 [...] admitted 07/08/2025 for work-up of Necrotizing fasciitis ([facility]). Problem List Active Hospital Problems Diagnosis Date Noted Postoperative pain 07/13/2025 JOSEP (obstructive sleep apnea) 07/11/2025 HLD (hyperlipidemia) 07/10/2025 Acute respiratory failure 07/09/2025 Septic shock ([facility]) 07/09/2025 Absence seizure ([facility]) 07/09/2025 DM (diabetes mellitus) ([facility]) 07/08/2025 Hidradenitis 07/08/2025 HTN (hypertension), benign 08/31/2023 Urge incontinence 08/31/2023 Smoker 06/09/2023 Depression 06/09/2023 Morbid (severe) obesity due to excess calories ([facility]) 02/15/2022 Chronic obstructive pulmonary disease, unspecified ([facility]) 01/09/2022 Necrotizing fasciitis ([facility]) 07/08/2025 Procedures 07/11/2025 Procedure(s): APPLICATION OR REPLACEMENT, [...] move. Participants in Care Family/Caregiver Present: No Busgirl: Not Applicable Presentation Oxygen Therapy: Supplemental oxygen [...] admission Level of Mobility: Ambulatory- community Mobility Pope: Independent gait without device History of Falls: [...] Mobility Bed Mobility Exam: Scooting/Bridging Level of Pope: Contact guard (seated scoot once sitting up on EOB and able to wiggle back into recliner chair) Bed Mobility Exam: Supine to Sit Level of Pope: Moderate assist (50% patient's effort) Physical/Nonphysical Assist: Verbal Cues, Moderate cues, Additional assist utilized for safety, HOBelevated Assistive Device: Other (CHEMICAL LABORATORY CHIEF x 2) Transfers Transfer Interventions: Patient performed sit < > stand x 3 reps total: Mod A from EOB, Min Afrom recliner chair, and CGA from BSC. Cues for safe hand placement during transitions using RW. Transfer Exam: Sit to stand Level of Pope: Minimum assist (75% patient's effort) Physical/Nonphysical Assist: Verbal Cues, Minimal cues Assistive Device: Walker, rolling (andrea) Transfer Exam: Stand to Sit Level of Pope: Minimum assist (75% patient's effort) Physical/Nonphysical Assist: Verbal Cues, Minimal cues Assistive Device: Walker, rolling (andrea) Transfer Exam: Bed to Chair/Chair to Bed Level of Pope: Minimum assist (75% patient's effort) Physical/Nonphysical Assist: Verbal Cues, Minimal cues, Additional assist utilized for safety Type of Transfer: Sidesteps (bed > chair < > BSC) Assistive Device: Walker, rolling (andrea) Toilet Transfer Level of Pope: Minimum assist (75% patient's effort) Physical/Nonphysical Assist: [...] assistance Standardized Assessments Standardized Assessments Standardized Assessments: [facility] 6-Clicks Mobility Assessment [facility] 6-Clicks Mobility Assessment Difficulty patient has turning [...] climbing 3-5 steps with a railing?: Unable [facility] 6-Clicks Mobility Assessment Total : 15 [...] anxiety, asthma, HLD, celiac disease, presenting to [facility] on 07/08/2025 as transfer with concern [...] stay, and so will be discharged to [facility]. * Assessment & Plan Note - Jatin [...] Airway None O2 Delivery Method: Nasal cannula ID SUP: 10 cm H20 Insp Time (sec): 1 sec FiO2 (%): 40 % S RR: 20 ID SUP: 10 cm H20 Output by Drain [...] saw and evaluated the patient with the medical/JOB ANALYST/PA student. I discussed the case with the medical/JOB ANALYST/PA student and agree with the findings and [...] PM EDT Operative Note Date: 07/11/25 Location: [facility] Name: Cristina Brown, : 1975, Diagnoses: Pre-op Diagnosis Necrotizing fasciitis (CMS/HCC) Post-op Diagnosis Necrotizing fasciitis (CMS/HCC) Procedure(s): Right groin/perineum/thigh/abdominal wound exploration and washout Attending Surgeon(s): * Dorcas Hennessy - Primary Diving Fisher(s): * Janell Cross MD - Resident - [...] Note Cristina Brown 50 y.o. female CSN: [id number] Room/Bed 133/133A Nutrition evaluation type: follow-up Reason for evaluation: Hospital course: 50 y o F transferred from [facility] with concern for necrotizing fasciitis; OR 07/08 for excisional debridement of RLE, groin, pubis, and abdominal wall of skin, subcutaneous tissue, and muscle fascia, [id number]. Septic shock secondary to NSTI. Intubated & [...] Estimated Needs: Kcal: 25-27 kcal/kg adj bw (0714-9980 kcal/d) Protein: 1.5-1.7 g/kg adj bw (143-162 [...] -will monitor NPO duration -po per MD/ BULLET LUBRICANT MIXER -when po diet appropriate, rec CC3, Gluten [...] obesity due to excess calories (CMS/[facility]); Type 2 diabetes mellitus withhyperglycemia, without long- term current use of insulin Surgical ICU Daily Progress Note 07/11/25 Cristina Escobar Kevin [facility] 50-year-old female with past medical history [...] Vent Status (ETT, Trach Only): In use ID SUP: 5 cm H20 Insp Time (sec): 1.5 sec Vent Mode: PS FiO2 (%): 60 % S RR: 14 ID SUP: 5 cm H20 MAP (cm H2O): [...] PM EDT Operative Note Date: 07/10/25 Location: [facility] Name: Cristina Brown, : 1975, Diagnoses: Pre-op Diagnosis Necrotizing fasciitis (CMS/HCC) Post-op Diagnosis Necrotizing fasciitis (CMS/HCC) Procedure(s): Right groin/perineum/thigh/abdominal wound exploration, debridement, and washout Attending Surgeon(s): * Dorcas Hennessy - Primary Diving Fisher(s): * Shelby Whittington MD - Resident - [...] 07/08/252341 Estimated Blood Loss: Minimal Drains: NG/OG [place] Sump 14 Fr Left nostril (Active) Placement [...] Findings: All viable tissue. Wound measuring approximately 14p21h3bj. Packed with 5 kerlix tied together. Indications: [...] Vent Status (ETT, Trach Only): In use ID SUP: 5 cm H20 Insp Time (sec): 1.5 sec Vent Mode: PS FiO2 (%): 50 % S RR: 14 ID SUP: 5 cm H20 MAP (cm H2O): [...] Morbid (severe) obesity due to excess calories ([facility]) Yes Overview Addendum 07/09/2025 4:07 PM by Lidia Ellis MD Complicates care. Smoker Yes Overview Signed 07/09/2025 3:05 PM by Lidia Ellis MD - Patient smokes 0.5-1ppd. - Smoking cessation when appropriate. Urge incontinence Yes DM (diabetes mellitus) ([facility]) Yes Overview Addendum 07/09/2025 4:11 PM by Lidia Ellis MD - Patient hyperglycemic, up to 300s. - Insulin drip per protocol. Hidradenitis Yes Absence seizure ([facility]) (Chronic) Yes Overview Addendum 07/10/2025 4:52 PM by Lidia Ellis MD On Lamictal 50mg BID. Acute respiratory failure Yes Overview Signed 07/09/2025 3:57 PM by Lidia Ellis MD - Patient presenting in septic shock due to RLE necrotizing fasciitis. - Requiring ventilator for respiratory support. Wean as tolerated. Septic shock ([facility]) Yes Overview Addendum 07/10/2025 4:53 PM [...] Protection: absorbent pad utilized/changed positioning supports utilized ojei-pz-asxhet areas padded [id number] areas padded Problem: Skin Injury Risk Increased [...] a later time. * Consults - Mera Knowlse RD - 07/09/2025 9:20 AM EDTAssociated Order(s): IP CONSULT TO NUTRITION SERVICES Adult Nutrition Evaluation Note Cristina Brown 50 y.o. female CSN: [id number] Room/Bed 133/133A Nutrition evaluation type: assessment Reason for evaluation: provider consult Hospital course: 50 y o F transferred from OSH with concern for necrotizing fasciitis; OR 07/08 for excisional debridement of RLE, groin, pubis, and abdominal wall of skin, subcutaneous tissue, and muscle fascia, [id number]. Septic shock secondary to NSTI. Intubated & sedated. TF initiated 07/09. Past medical/ surgical history: Past Medical History[1], celiac disease Surgical History[2] Social history: Social History[3] Additional comments: 07/09: Pt intubated and sedated. Visitor sleeping. Vitals and Basic Assessment: BP: 89/50 Temp: 36.3 ??C (97.3 ??F) Invasive Ventilator Initiated (ETT/Trach Only): Yes Oxygen Therapy: Supplemental oxygen O2 Delivery Method: Endotracheal tube, Mechanical ventilator [place] Coma Scale Score: 10 Satnam/Cubbin Pressure Risk [...] oz) Estimated Needs: Kcal: 22-25 kcal/kg IBW (9666-4075 kcal/d) Protein: 2-2.5 g/kg IBW (136-171 g/d) [...] decreased. Palpations: Abdomen is soft. Skin: Comments: 45k44si open wound with no extension of cellulitis. [...] PEEP (cmH2O): 18 S VT: 450 mL ID SUP: 10 cm H20 Insp Time (sec): 0.8 sec Vent Mode: PS FiO2 (%): 50 % S RR: 22 S VT: 450 mL ID SUP: 10 cm H20 MAP (cm H2O): [...] appropriate. Urge incontinence Yes DM (diabetes mellitus) ([facility]) Yes Overview Addendum 07/09/2025 4:11 PM by Lidia Ellis MD - Patient hyperglycemic, up to 300s. - Insulin drip per protocol. Hidradenitis Yes Absence seizure ([facility]) (Chronic) Yes Overview Addendum 07/09/2025 4:08 [...] PM EDT Operative Note Date: 07/08/25 Location: [facility] Name: Cristina Brown, : 1975, Diagnoses: Pre-op Diagnosis Necrotizing fasciitis (CMS/HCC) Post-op Diagnosis Necrotizing fasciitis (CMS/HCC) Procedure(s): Excisional debridement of right thigh, groin pubis and abdominal wall including skin, subcutaneous tissue and fascia measuring 65 x 20 x 2cm Attending Surgeon(s): * Luanne Crawford - Primary Diving Fisher(s): * Kristy Fields MD - Resident - [...] who is having surgery for Necrotizing fasciitis ([facility]). Patient presented as transfer from H [...] Attending Surgeon(s): * Luanne Crawford - Primary Diving Fisher(s): * Kristy Fields MD - Resident - [...] anxiety, asthma, HLD, celiac disease, presenting to [facility] on 07/08/2025 as transfer with concern [...] Morbid (severe) obesity due to excess calories ([facility]) Overview Signed 08/31/2023 9:36 AM by Janell [...] mL IVPB (vial adapter required) 2 g [id number] Deepthi Garcia MD linezolid (Zyvox) injection 600 [...] ppd), asthma, HLD, celiac disease, presenting to [facility] on 07/08/2025 as transfer with concern [...] 4% (Hibiclens). Acknowledged AMINA RAMIREZ 07/08/251916 Void early education teacher to OR Once Acknowledged AMINA RAMIREZ 07/08/251916 [...] 180 Lactic acid, venous STAT Final result YM CHARLES 07/08/25 180 C-Reactive protein STAT Final [...] None Disposition Admit Admitting/Attending Physician: LUANNE CRAWFORD [[id number]] Provider Care Team: E EMERGENCY GENERAL SURGERY [...] Visit Medical Office Building Urology [address], [address] [place] [address] Deepthi Matamoros, VEGETABLE FARM WORKER [address] [place] [address] Scheduled Referrals Name Type Priority Associated Diagnoses Order Schedule Discharge Ambulatory referral to NON Endocrinology Outpatient Referral Routine Morbid (severe) obesity due to excess calories ([facility]) Type 2 diabetes mellitus with hyperglycemia, without long-term current use of insulin ([facility]) Celiac disease Expected: 07/15/2025 (Approximate), Expires: [...] UNSOLICITED RESULTS Routine 07/11/2025 9:57 AM EDT ID CRITICAL CARE, E/M 30-74 MINUTES Routine 07/11/2025 [...] ECG ADULT STAT 07/10/2025 8:42 AM EDT ID CRITICAL CARE, E/M 30-74 MINUTES Routine 07/10/2025 [...] CO2 MONITORING Routine 07/09/2025 8:00 AM EDT ID CRITICAL CARE, E/M 30-74 MINUTES Routine 07/09/2025 7:15 AM EDT Necrotizing fasciitis (CMS/HCC) Morbid (severe) obesity due to excess calories (CMS/HCC) Septic shock (CMS/[facility]) Acute respiratory failure with hypoxia POCT [...] UNSOLICITED RESULTS Routine 07/08/2025 8:51 PM EDT ID DEBRIDEMENT, SKIN, SUB-Q TISSUE,=<20 SQ CM 07/08/2025 [...] Comment 07/19/2025 5:32 PM EDT [facility] Die Drawing Checker ID Laura Baez 025 5:32 PM EDT HEALTHCARE LAB Device ID [id number] 07/19/2025 5:32 PM EDT [facility] Specimen Type POC Capillary 07/19/2025 5:32 PM EDT [facility] Blood Capillary blood specimen / Unknown 07/19/2025 12:27 PM EDT 07/19/2025 5:32 PM EDT us Anne Franco MD LAB POINT OF CARE TEST DOCKED DEVICE UNSOLICITED RESULTS Final Result [facility] [address] [place] [address] * Phosphorus (07/19/2025 4:28 AM EDT) Pathologist [facility] Phosphorus, Plasma 3.6 2.5 - 4.5 mg/dL 07/19/2025 5:03 AM EDT [facility] Blood Venous blood specimen / Unknown Venipuncture / Unknown 07/19/2025 4:28 AM EDT 07/19/2025 4:35 AM EDT us Anne Franco MD LAB BLOOD ORDERABLES Sarah l Result Performing Organization Address City/Special Care [facility]/ZIP Co de Phone Number [facility] [address] [place] [address] * (ABNORMAL) Magnesium (07/19/2025 4:28 AM EDT) Pathologist [facility] Magnesium, Plasma 1.8(L) 1.9 - 2.4 mg/dL 07/19/2025 5:03 AM EDT [facility] Blood Venous blood specimen / Unknown Venipuncture / Unknown 07/19/2025 4:28 AM EDT 07/19/2025 4:35 AM EDT us Anne Franco MD LAB BLOOD ORDERABLES Sarah l Result Performing Organization Address [facility] Co de Phone Number [facility] [address] [place] [address] * (ABNORMAL) CBC W/O Differential (07/19/2025 4:28 AM EDT) Pathologist [facility] WBC Count 18.39(H) 3.70 - 10.30 10*3/uL LAB HEMATOLOGY METHOD 07/19/2025 4:51 AM EDT [facility] RBC Count 3.50(L) 3.90 - 5.20 10*6/uL LAB HEMATOLOGY METHOD 07/19/2025 4:51 AM EDT [facility] HGB 9.6(L) 11.2 - 15.7 g/dL LAB HEMATOLOGY METHOD 07/19/2025 4:51 AM EDT [facility] HCT 30.7(L) 34.0 - 45.0 % LAB HEMATOLOGY METHOD 07/19/2025 4:51 AM EDT [facility] Platelet Count 627(H) 155 - 369 10*3/uL LAB HEMATOLOGY METHOD 07/19/2025 4:51 AM EDT [facility] MCV 88 79 - 98 fL LAB HEMATOLOGY METHOD 07/19/2025 4:51 AM EDT [facility] MCH 27.4 26.0 - 32.0 pg LAB HEMATOLOGY METHOD 07/19/2025 4:51 AM EDT [facility] MCHC 31.3 30.7 - 35.5 g/dL LAB HEMATOLOGY METHOD 07/19/2025 4:51 AM EDT [facility] RDW 18.2(H) 11.5 - 14.5 % LAB HEMATOLOGY METHOD 07/19/2025 4:51 AM EDT [facility] MPV 10.2 8.8 - 12.5 fL LAB HEMATOLOGY METHOD 07/19/2025 4:51 AM EDT [facility] nRBC 0.1(H) <=0.0 per 100 WBCs LAB HEMATOLOGY METHOD 07/19/2025 4:51 AM EDT [facility] Blood Venous blood specimen / Unknown Venipuncture / Unknown 07/19/2025 4:28 AM EDT 07/19/2025 4:36 AM EDT us Anne Franco MD LAB BLOOD ORDERABLES Sarah bennett Result [facility] [address] [place] [address] * (ABNORMAL) Basic metabolic panel (07/19/2025 4:28 AM EDT) Glucose, Plasma 153(H) 74 - 99 mg/dL 07/19/2025 5:03 AM EDT [facility] BUN, Plasma 14 7 - 21 mg/dL 07/19/2025 5:03 AM EDT [facility] Creatinine, Plasma 0.73 0.60 - 1.10 mg/dL 07/19/2025 5:03 AM EDT [facility] BUN/Creatinine Ratio 19 07/19/2025 5:03 AM EDT [facility] Sodium, Plasma 137 136 - 145 mmol/L 07/19/2025 5:03 AM EDT [facility] Potassium, Plasma 4.3 3.6 - 4.9 mmol/L 07/19/2025 5:03 AM EDT [facility] Chloride, Plasma 97 97 - 107 mmol/L 07/19/2025 5:03 AM EDT [facility] CO2, Plasma 28 22 - 29 mmol/L 07/19/2025 5:03 AM EDT [facility] Anion Gap 12 6 - 16 mmol/L 07/19/2025 5:03 AM EDT [facility] Total Calcium, Plasma 9.0 8.9 - 10.2 mg/dL 07/19/2025 5:03 AM EDT [facility] eGFRcr 101.0 mL/min/1.7 3m*2 07/19/2025 5:03 AM EDT [facility] Comment:Reported eGFRcr in m L/min/1.73m2 is based the CKD-EPI 2020 equation that does not use a race coefficient. Blood Venous blood specimen / Unknown Venipuncture / Unknown 07/19/2025 4:28 AM EDT 07/19/2025 4:35 AM EDT us Anne Franco MD LAB BLOOD ORDERABLES Sarah bennett Result [facility] [address] [place] [address] * (ABNORMAL) POCT glucose meter (07/18/2025 8:33 [...] Comment 07/18/2025 8:36 PM EDT [facility] Die Drawing Checker ID Zach Martinez 8:36 PM EDT [facility] LAB Device ID [id number] 07/18/2025 8:36 PM EDT [facility] LAB Specimen Type POC Capillary 07/18/2025 8:36 PM EDT [facility] Blood Capillary blood specimen / Unknown 07/18/2025 8:33 PM EDT 07/18/2025 8:36 PM EDT Anne Franco MD LAB POINT OF CARE TEST DOCKED DEVICE UNSOLICITED RESULTS Final Result Performing Organization Address [facility]/ZIP Co de Phone Number [facility] [address] [place] [address] * (ABNORMAL) POCT glucose meter (07/18/2025 6:07 [...] for testing. Comment 07/18/2025 6:08 PM EDT [facility] Die Drawing Checker ID Monique Jacques 6:08 PM EDT [facility] Device ID [id number] 07/18/2025 6:08 PM EDT [facility] Specimen Type POC Capillary 07/18/2025 6:08 PM EDT [facility] Blood Capillary blood specimen / Unknown 07/18/2025 6:07 PM EDT 07/18/2025 6:08 PM EDT Anne Franco MD LAB POINT OF CARE TEST DOCKED DEVICE UNSOLICITED RESULTS Final Result Performing Organization Address [facility]/ZIP Co de Phone Number [facility] [address] [place] [address] * (ABNORMAL) POCT glucose meter (07/18/2025 12:36 PM EDT) POCT Glucose 151(H) 74 - 99 mg/dL [...] Comment 07/18/2025 12:38 PM EDT [facility] Die Drawing Checker ID Laura Baez [id number] 12:38 PM EDT [facility]ARE LAB Device ID [id number] 07/18/2025 12:38 PM EDT [facility] Specimen Type POC Capillary 07/18/2025 12:38 PM EDT [facility] Blood Capillary blood specimen / Unknown 07/18/2025 12:36 PM EDT 07/18/2025 12:38 PM EDT Anne Franco MD LAB POINT OF CARE TEST DOCKED DEVICE UNSOLICITED RESULTS Final Result Performing Organization Address [facility] de Phone Number [facility]ARE [facility] [address] [place] [address] * (ABNORMAL) POCT glucose meter (07/18/2025 8:39 [...] Comment 07/18/2025 8:41 AM EDT [facility] LAB Die Drawing Checker ID Laura Baez 025 8:41 AM EDT HEALTHCARE LAB Device ID [id number] 07/18/2025 8:41 AM EDT [facility] LAB Specimen Type POC Capillary 07/18/2025 8:41 AM EDT [facility] Blood Capillary blood specimen / Unknown 07/18/2025 8:39 AM EDT 07/18/2025 8:41 AM EDT us Anne Franco MD LAB POINT OF CARE TEST DOCKED DEVICE UNSOLICITED RESULTS Final Result Performing Organization Address [facility] Co de Phone Number [facility] [address] [place] [address] * (ABNORMAL) Basic metabolic panel (07/18/2025 6:03 AM EDT) Glucose, Plasma 163(H) 74 - 99 mg/dL 07/18/2025 6:45 AM EDT [facility] BUN, Plasma 11 7 - 21 mg/dL 07/18/2025 6:45 AM EDT [facility] Creatinine, Plasma 0.65 0.60 - 1.10 mg/dL 07/18/2025 6:45 AM EDT [facility] BUN/Creatinine Ratio 17 07/18/2025 6:45 AM EDT [facility] Sodium, Plasma 138 136 - 145 mmol/L 07/18/2025 6:45 AM EDT [facility] Potassium, Plasma 3.8 3.6 - 4.9 mmol/L 07/18/2025 6:45 AM EDT [facility] Chloride, Plasma 99 97 - 107 mmol/L 07/18/2025 6:45 AM EDT [facility] CO2, Plasma 29 22 - 29 mmol/L 07/18/2025 6:45 AM EDT [facility] Anion Gap 10 6 - 16 mmol/L 07/18/2025 6:45 AM EDT [facility] Total Calcium, Plasma 8.5(L) 8.9 - 10.2 mg/dL 07/18/2025 6:45 AM EDT [facility] eGFRcr 108.1 mL/min/1.7 3m*2 07/18/2025 6:45 AM EDT [facility] Comment:Reported eGFRcr in m L/min/1.73m2 is based the CKD-EPI 2020 equation that does not use a race coefficient. Blood Venous blood specimen / Unknown Venipuncture / Unknown 07/18/2025 6:03 AM EDT 07/18/2025 6:12 AM EDT us Anne Franco MD LAB BLOOD ORDERABLES Sarah l Result [facility] [address] [place] [address] * (ABNORMAL) CBC W/O Differential (07/18/2025 6:03 AM EDT) WBC Count 16.76(H) 3.70 - 10.30 10*3/uL LAB HEMATOLOGY METHOD 07/18/2025 6:25 AM EDT [facility] RBC Count 3.25(L) 3.90 - 5.20 10*6/uL LAB HEMATOLOGY METHOD 07/18/2025 6:25 AM EDT [facility] HGB 9.1(L) 11.2 - 15.7 g/dL LAB HEMATOLOGY METHOD 07/18/2025 6:25 AM EDT [facility] HCT 28.8(L) 34.0 - 45.0 % LAB HEMATOLOGY METHOD 07/18/2025 6:25 AM EDT [facility] Platelet Count 523(H) 155 - 369 10*3/uL LAB HEMATOLOGY METHOD 07/18/2025 6:25 AM EDT [facility] MCV 89 79 - 98 fL LAB HEMATOLOGY METHOD 07/18/2025 6:25 AM EDT [facility] MCH 28.0 26.0 - 32.0 pg LAB HEMATOLOGY METHOD 07/18/2025 6:25 AM EDT [facility] MCHC 31.6 30.7 - 35.5 g/dL LAB HEMATOLOGY METHOD 07/18/2025 6:25 AM EDT [facility] RDW 17.6(H) 11.5 - 14.5 % LAB HEMATOLOGY METHOD 07/18/2025 6:25 AM EDT [facility] MPV 10.3 8.8 - 12.5 fL LAB HEMATOLOGY METHOD 07/18/2025 6:25 AM EDT [facility] nRBC 0.0 <=0.0 per 100 WBCs LAB HEMATOLOGY METHOD 07/18/2025 6:25 AM EDT [facility] Blood Venous blood specimen / Unknown Venipuncture / Unknown 07/18/2025 6:03 AM EDT 07/18/2025 6:12 AM EDT us Anne Franco MD LAB BLOOD ORDERABLES Sarah bennett Result [facility] [address] [place] [address] * (ABNORMAL) POCT glucose meter (07/17/2025 10:33 [...] 07/17/2025 10:35 PM EDT [facility] Die Drawing Checker ID Tha, 07/17/2025 10:35 PM EDT [facility] Device ID [id number] 07/17/2025 10:35 PM EDT [facility]ALTH[facility] LAB Specimen Type POC Capillary 07/17/2025 10:35 PM EDT [facility] Blood Capillary blood specimen / Unknown 07/17/2025 10:33 PM EDT 07/17/2025 10:35 PM EDT us Anne Franco MD LAB POINT OF CARE TEST DOCKED DEVICE UNSOLICITED RESULTS Final Result Performing Organization Address City/State/[facility] Co de Phone Number [facility] [address] [place] [address] * PERIPHERAL IV (SMARTFORM LINK) (07/17/2025 5:14 PM EDT) Narrative Arturo Mancilla RN - 07/17/2025 5:14 PM EDT Arturo Mancilla RN 07/17/2025 5:14 PM Insert peripheral IV Performed by: Arturo Mancilla, NAHID Authorized by: Anne Franco MD Hand hygiene: [...] POCT glucose meter (07/17/2025 5:10 PM EDT) [facility] POCT Glucose 115(H) 74 - 99 mg/dL [...] Comment 07/17/2025 5:12 PM EDT [facility]ALTH[facility] LAB Die Drawing Checker ID Monique Jacques 5:12 PM EDT [facility]ALTH[facility] LAB Device ID [id number] 07/17/2025 5:12 PM EDT [facility] LAB Specimen Type POC Capillary 07/17/2025 5:12 PM EDT [facility] Blood Capillary blood specimen / Unknown 07/17/2025 5:10 PM EDT 07/17/2025 5:12 PM EDT us Anne Franco MD LAB POINT OF CARE TEST DOCKED DEVICE UNSOLICITED RESULTS Final Result Performing Organization Address City/State/[facility] Co de Phone Number [facility] [address] [place] [address] * (ABNORMAL) POCT glucose meter (07/17/2025 12:06 PM EDT) [facility] POCT Glucose 211(H) 74 - 99 mg/dL [...] 07/17/2025 12:07 PM EDT [facility] Die Drawing Checker ID Josi Ann 12:07 PM EDT [facility]ARE LAB Device ID [id number] 07/17/2025 12:07 PM EDT [facility] LAB Specimen Type POC Capillary 07/17/2025 12:07 PM EDT [facility] Blood Capillary blood specimen / Unknown 07/17/2025 12:06 PM EDT 07/17/2025 12:07 PM EDT Anne Franco MD LAB POINT OF CARE TEST DOCKED DEVICE UNSOLICITED RESULTS Final Result [facility] [address] [place] [id number] * [place] Extremity Limited MSK or Soft [...] (MRSA) by PCR (07/17/2025 10:14 AM EDT) Pathologist [facility] Methicillin Resistant Staphylococcus aureus (MRSA) by PCR Not Detected Not Detected 07/17/2025 12:11 PM EDT [facility] Swab Both anterior nares / Unknown Non-blood Collection / Unknown 07/17/2025 10:14 AM EDT 07/17/2025 10:33 AM EDT Narrative [facility] - 07/17/2025 12:11 PM EDT This [...] MICROBIOLOGY - GENERAL ORDER LUANNE Final Result [facility] [address] [place] [address] * (ABNORMAL) POCT glucose meter (07/17/2025 9:35 AM EDT) Pathologist [facility] POCT Glucose 139(H) 74 - 99 [...] Comment 07/17/2025 9:37 AM EDT [facility]ALTH[facility]ARE LAB Die Drawing Checker ID [email or web address] 9:37 AM EDT HEALTHCARE LAB Device ID [id number] 07/17/2025 9:37 AM EDT [facility]ALTH[facility]ARE LAB Specimen Type POC Capillary 07/17/2025 9:37 AM EDT [facility] Blood Capillary blood specimen / Unknown 07/17/2025 9:35 AM EDT 07/17/2025 9:37 AM EDT us Anne Franco MD LAB POINT OF CARE TEST DOCKED DEVICE UNSOLICITED RESULTS Final Result [facility] [address] [place] [address] * (ABNORMAL) Basic metabolic panel (07/17/2025 5:20 AM EDT) Glucose, Plasma 140(H) 74 - 99 mg/dL 07/17/2025 5:56 AM EDT [facility] BUN, Plasma 8 7 - 21 mg/dL 07/17/2025 5:56 AM EDT [facility] Creatinine, Plasma 0.59(L) 0.60 - 1.10 mg/dL 07/17/2025 5:56 AM EDT [facility] BUN/Creatinine Ratio 14 07/17/2025 5:56 AM EDT [facility] Sodium, Plasma 139 136 - 145 mmol/L 07/17/2025 5:56 AM EDT [facility] Potassium, Plasma 3.8 3.6 - 4.9 mmol/L 07/17/2025 5:56 AM EDT [facility] Chloride, Plasma 97 97 - 107 mmol/L 07/17/2025 5:56 AM EDT [facility] CO2, Plasma 31(H) 22 - 29 mmol/L 07/17/2025 5:56 AM EDT [facility] Anion Gap 11 6 - 16 mmol/L 07/17/2025 5:56 AM EDT [facility] Total Calcium, Plasma 8.6(L) 8.9 - 10.2 mg/dL 07/17/2025 5:56 AM EDT [facility] eGFRcr 110.6 mL/min/1.7 3m*2 07/17/2025 5:56 AM EDT [facility] Comment:Reported eGFRcr in m L/min/1.73m2 is based the CKD-EPI 2020 equation that does not use a race coefficient. Blood Venous blood specimen / Unknown Venipuncture / Unknown 07/17/2025 5:20 AM EDT 07/17/2025 5:27 AM EDT us Anne Franco MD LAB BLOOD ORDERABLES Sarah l Result Performing Organization Address City/[facility]/ZIP Co de Phone Number [facility] [address] [place] [address] * Phosphorus, Plasma (07/17/2025 5:20 AM EDT) Phosphorus, Plasma 3.0 2.5 - 4.5 mg/dL 07/17/2025 5:56 AM EDT [facility] Blood Venous blood specimen / Unknown Venipuncture / Unknown 07/17/2025 5:20 AM EDT 07/17/2025 5:27 AM EDT us Anne Franco MD LAB BLOOD ORDERABLES Sarah l Result Performing Organization Address [facility]/ZIP Co de Phone Number [facility] [address] [place] [address] * (ABNORMAL) Magnesium, Plasma (07/17/2025 5:20 AM EDT) Magnesium, Plasma 1.8(L) 1.9 - 2.4 mg/dL 07/17/2025 5:56 AM EDT [facility] Blood Venous blood specimen / Unknown Venipuncture / Unknown 07/17/2025 5:20 AM EDT 07/17/2025 5:27 AM EDT us Anne Franco MD LAB BLOOD ORDERABLES Sarah l Result [facility] [address] [place] [address] * (ABNORMAL) CBC W/O Differential (07/17/2025 5:20 AM EDT) WBC Count 22.29(H) 3.70 - 10.30 10*3/uL LAB HEMATOLOGY METHOD 07/17/2025 5:37 AM EDT [facility] RBC Count 3.36(L) 3.90 - 5.20 10*6/uL LAB HEMATOLOGY METHOD 07/17/2025 5:37 AM EDT [facility] HGB 9.2(L) 11.2 - 15.7 g/dL LAB HEMATOLOGY METHOD 07/17/2025 5:37 AM EDT [facility] HCT 29.4(L) 34.0 - 45.0 % LAB HEMATOLOGY METHOD 07/17/2025 5:37 AM EDT [facility] Platelet Count 484(H) 155 - 369 10*3/uL LAB HEMATOLOGY METHOD 07/17/2025 5:37 AM EDT [facility] MCV 88 79 - 98 fL LAB HEMATOLOGY METHOD 07/17/2025 5:37 AM EDT [facility] MCH 27.4 26.0 - 32.0 pg LAB HEMATOLOGY METHOD 07/17/2025 5:37 AM EDT [facility] MCHC 31.3 30.7 - 35.5 g/dL LAB HEMATOLOGY METHOD 07/17/2025 5:37 AM EDT [facility] RDW 17.3(H) 11.5 - 14.5 % LAB HEMATOLOGY METHOD 07/17/2025 5:37 AM EDT [facility] MPV 10.4 8.8 - 12.5 fL LAB HEMATOLOGY METHOD 07/17/2025 5:37 AM EDT [facility] nRBC 0.1(H) <=0.0 per 100 WBCs LAB HEMATOLOGY METHOD 07/17/2025 5:37 AM EDT [facility] Blood Venous blood specimen / Unknown Venipuncture / Unknown 07/17/2025 5:20 AM EDT 07/17/2025 5:27 AM EDT us Anne Franco MD LAB BLOOD ORDERABLES Sarah bennett Result [facility] [address] [place] [address] * (ABNORMAL) POCT glucose meter (07/16/2025 8:24 [...] 07/16/2025 8:26 PM EDT [facility] Die Drawing Checker ID Lacie Marcelo 07/16/20 8:26 PM EDT HEALTHCARE LAB Device ID [id number] 07/16/2025 8:26 PM EDT [facility]ALTH[facility] LAB Specimen Type POC Capillary 07/16/2025 8:26 PM EDT [facility] Blood Capillary blood specimen / Unknown 07/16/2025 8:24 PM EDT 07/16/2025 8:26 PM EDT Anne Franco MD LAB POINT OF CARE TEST DOCKED DEVICE UNSOLICITED RESULTS Final Result Performing Organization Address City/State/[facility] Co de Phone Number [facility] [address] [place] [address] * (ABNORMAL) POCT glucose meter (07/16/2025 5:34 PM EDT) [facility] POCT Glucose 190(H) 74 - 99 mg/dL [...] 07/16/2025 5:36 PM EDT [facility] Die Drawing Checker ID Diego Munroe 07/16/20 5:36 PM EDT [facility] Device ID [id number] 07/16/2025 5:36 PM EDT [facility] Specimen Type POC Capillary 07/16/2025 5:36 PM EDT [facility] Blood Capillary blood specimen / Unknown 07/16/2025 5:34 PM EDT 07/16/2025 5:36 PM EDT Anne Franco MD LAB POINT OF CARE TEST DOCKED DEVICE UNSOLICITED RESULTS Final Result Performing Organization Address City/[facility] Co de Phone Number [facility] [address] [place] [address] * (ABNORMAL) POCT glucose meter (07/16/2025 12:06 [...] Comment 07/16/2025 12:08 PM EDT [facility] LAB Die Drawing Checker ID Diego Munroe 07/16/20 25 12:08 PM EDT [facility]ALTH[facility]ARE LAB Device ID [id number] 07/16/2025 12:08 PM EDT [facility]ALTH[facility] LAB Specimen Type POC Capillary 07/16/2025 12:08 PM EDT [facility] Blood Capillary blood specimen / Unknown 07/16/2025 12:06 PM EDT 07/16/2025 12:08 PM EDT Anne Franco MD LAB POINT OF CARE TEST DOCKED DEVICE UNSOLICITED RESULTS Final Result Performing Organization Address City/[facility] Co de Phone Number [facility] [address] [place] [address] * XR Chest 1 View (07/16/2025 11:25 [...] Alejandrina Ham MD on 07/16/2025 9:43 AM Anne Franco MD CV VASCULAR PROCEDURES Fi nal Result * (ABNORMAL) POCT glucose meter (07/16/2025 8:22 AM EDT) [facility] POCT Glucose 172(H) 74 - 99 mg/dL [...] Comment 07/16/2025 8:24 AM EDT [facility]ALTH[facility] LAB Die Drawing Checker ID Diego Munroe 07/16/20 8:24 AM EDT HEALTHCARE LAB Device ID [id number] 07/16/2025 8:24 AM EDT [facility] Specimen Type POC Capillary 07/16/2025 8:24 AM EDT [facility] Blood Capillary blood specimen / Unknown 07/16/2025 8:22 AM EDT 07/16/2025 8:24 AM EDT Anne Franco MD LAB POINT OF CARE TEST DOCKED DEVICE UNSOLICITED RESULTS Final Result Performing Organization Address City/[facility]/ZIP Co de Phone Number [facility] [address] [place] [address] * Phosphorus (07/16/2025 5:25 AM EDT) [facility] Phosphorus, Plasma 2.8 2.5 - 4.5 mg/dL 07/16/2025 7:12 AM EDT [facility] Blood Venous blood specimen / Unknown Venipuncture / Unknown 07/16/2025 5:25 AM EDT 07/16/2025 5:33 AM EDT Anne Franco MD LAB BLOOD ORDERABLES Sarah l Result [facility] [address] [place] [address] * (ABNORMAL) Magnesium (07/16/2025 5:25 AM EDT) [facility] Magnesium, Plasma 1.8(L) 1.9 - 2.4 mg/dL 07/16/2025 7:12 AM EDT [facility] Blood Venous blood specimen / Unknown Venipuncture / Unknown 07/16/2025 5:25 AM EDT 07/16/2025 5:33 AM EDT us Anne Franco MD LAB BLOOD ORDERABLES Sarah sabrina Result [facility] [address] [place] [address] * (ABNORMAL) Basic metabolic panel (07/16/2025 5:25 AM EDT) Glucose, Plasma 149(H) 74 - 99 mg/dL 07/16/2025 6:01 AM EDT [facility] BUN, Plasma 9 7 - 21 mg/dL 07/16/2025 6:01 AM EDT [facility] Creatinine, Plasma 0.48(L) 0.60 - 1.10 mg/dL 07/16/2025 6:01 AM EDT [facility] BUN/Creatinine Ratio 19 07/16/2025 6:01 AM EDT [facility] Sodium, Plasma 140 136 - 145 mmol/L 07/16/2025 6:01 AM EDT [facility] Potassium, Plasma 3.4(L) 3.6 - 4.9 mmol/L 07/16/2025 6:01 AM EDT [facility] Chloride, Plasma 99 97 - 107 mmol/L 07/16/2025 6:01 AM EDT [facility] CO2, Plasma 31(H) 22 - 29 mmol/L 07/16/2025 6:01 AM EDT [facility] Anion Gap 10 6 - 16 mmol/L 07/16/2025 6:01 AM EDT [facility] Total Calcium, Plasma 8.6(L) 8.9 - 10.2 mg/dL 07/16/2025 6:01 AM EDT [facility] eGFRcr 116.3 mL/min/1.7 3m*2 07/16/2025 6:01 AM EDT [facility] Comment:Reported eGFRcr in m L/min/1.73m2 is based the CKD-EPI 2020 equation that does not use a race coefficient. Blood Venous blood specimen / Unknown Venipuncture / Unknown 07/16/2025 5:25 AM EDT 07/16/2025 5:33 AM EDT us Anne Franco MD LAB BLOOD ORDERABLES Sarah bennett Result [facility] [address] [place] [address] * (ABNORMAL) CBC W/O Differential (07/16/2025 5:25 AM EDT) WBC Count 22.22(H) 3.70 - 10.30 10*3/uL LAB HEMATOLOGY METHOD 07/16/2025 5:41 AM EDT [facility] RBC Count 3.30(L) 3.90 - 5.20 10*6/uL LAB HEMATOLOGY METHOD 07/16/2025 5:41 AM EDT [facility] HGB 8.9(L) 11.2 - 15.7 g/dL LAB HEMATOLOGY METHOD 07/16/2025 5:41 AM EDT [facility] HCT 28.9(L) 34.0 - 45.0 % LAB HEMATOLOGY METHOD 07/16/2025 5:41 AM EDT [facility] Platelet Count 376(H) 155 - 369 10*3/uL LAB HEMATOLOGY METHOD 07/16/2025 5:41 AM EDT [facility] MCV 88 79 - 98 fL LAB HEMATOLOGY METHOD 07/16/2025 5:41 AM EDT [facility] MCH 27.0 26.0 - 32.0 pg LAB HEMATOLOGY METHOD 07/16/2025 5:41 AM EDT [facility] MCHC 30.8 30.7 - 35.5 g/dL LAB HEMATOLOGY METHOD 07/16/2025 5:41 AM EDT [facility] RDW 17.2(H) 11.5 - 14.5 % LAB HEMATOLOGY METHOD 07/16/2025 5:41 AM EDT [facility] MPV 10.3 8.8 - 12.5 fL LAB HEMATOLOGY METHOD 07/16/2025 5:41 AM EDT [facility] nRBC 0.1(H) <=0.0 per 100 WBCs LAB HEMATOLOGY METHOD 07/16/2025 5:41 AM EDT [facility] Blood Venous blood specimen / Unknown Venipuncture / Unknown 07/16/2025 5:25 AM EDT 07/16/2025 5:33 AM EDT Anne Franco MD LAB BLOOD ORDERABLES Sarah l Result [facility] [address] [place] [address] * (ABNORMAL) POCT glucose meter (07/15/2025 9:38 [...] Comment 07/15/2025 9:39 PM EDT [facility] Die Drawing Checker ID Yessenia Ramirez 9:39 PM EDT [facility] Device ID [id number] 07/15/2025 9:39 PM EDT [facility] Specimen Type POC Capillary 07/15/2025 9:39 PM EDT [facility] Blood Capillary blood specimen / Unknown 07/15/2025 9:38 PM EDT 07/15/2025 9:39 PM EDT us Anne Franco MD LAB POINT OF CARE TEST DOCKED DEVICE UNSOLICITED RESULTS Final Result [facility] [address] [place] [address] * (ABNORMAL) POCT glucose meter (07/15/2025 6:03 [...] 07/15/2025 6:04 PM EDT [facility] Die Drawing Checker ID Venessa Amin 07/15/2025 6:04 PM EDT [facility] Device ID [id number] 07/15/2025 6:04 PM EDT [facility] Specimen Type POC Capillary 07/15/2025 6:04 PM EDT [facility] Blood Capillary blood specimen / Unknown 07/15/2025 6:03 PM EDT 07/15/2025 6:04 PM EDT us Anne Franco MD LAB POINT OF CARE TEST DOCKED DEVICE UNSOLICITED RESULTS Final Result Performing Organization Address City/State/[facility] Co de Phone Number [facility] [address] [place] [address] * (ABNORMAL) POCT glucose meter (07/15/2025 12:38 PM EDT) [facility] POCT Glucose 153(H) 74 - 99 mg/dL [...] 07/15/2025 12:40 PM EDT [facility] Die Drawing Checker ID Venessa Amin 07/15/2025 12:40 PM EDT [facility] Device ID [id number] 07/15/2025 12:40 PM EDT [facility] Specimen Type POC Capillary 07/15/2025 12:40 PM EDT [facility] Blood Capillary blood specimen / Unknown 07/15/2025 12:38 PM EDT 07/15/2025 12:40 PM EDT us Anne Franco MD LAB POINT OF CARE TEST DOCKED DEVICE UNSOLICITED RESULTS Final Result Performing Organization Address City/[facility] Co de Phone Number [facility] [address] [place] [address] * (ABNORMAL) POCT glucose meter (07/15/2025 8:38 [...] Comment 07/15/2025 8:39 AM EDT [facility]ALTHCARE [facility] Die Drawing Checker ID Brennan Venessa 07/15/2025 8:39 AM EDT HEALTHCARE LAB Device ID [id number] 07/15/2025 8:39 AM EDT [facility] Specimen Type POC Capillary 07/15/2025 8:39 AM EDT [facility] Blood Capillary blood specimen / Unknown 07/15/2025 8:38 AM EDT 07/15/2025 8:39 AM EDT us Anne Franco MD LAB POINT OF CARE TEST DOCKED DEVICE UNSOLICITED RESULTS Final Result Performing Organization Address City/[facility] Co de Phone Number [facility] [address] [place] [id number] * (ABNORMAL) Phosphorus (07/15/2025 4:50 AM EDT) Phosphorus, Plasma 2.3(L) 2.5 - 4.5 mg/dL 07/15/2025 7:33 AM EDT [facility] Blood Venous blood specimen / Unknown Venipuncture / Unknown 07/15/2025 4:50 AM EDT 07/15/2025 4:59 AM EDT us Anne Franco MD LAB BLOOD ORDERABLES Sarah l Result [facility] [address] [place] [address] * Magnesium (07/15/2025 4:50 AM EDT) [facility] Magnesium, Plasma 1.9 1.9 - 2.4 mg/dL 07/15/2025 7:33 AM EDT [facility] Blood Venous blood specimen / Unknown Venipuncture / Unknown 07/15/2025 4:50 AM EDT 07/15/2025 4:59 AM EDT Anne Franco MD LAB BLOOD ORDERABLES Sarah l Result Performing Organization Address [facility]/ZIP Co de Phone Number [facility] [address] [place] [address] * (ABNORMAL) Basic metabolic panel (07/15/2025 4:50 AM EDT) Pathologist [facility] Glucose, Plasma 150(H) 74 - 99 mg/dL 07/15/2025 5:31 AM EDT [facility] BUN, Plasma 11 7 - 21 mg/dL 07/15/2025 5:31 AM EDT [facility] Creatinine, Plasma 0.54(L) 0.60 - 1.10 mg/dL 07/15/2025 5:31 AM EDT [facility] BUN/Creatinine Ratio 20 07/15/2025 5:31 AM EDT [facility] Sodium, Plasma 136 136 - 145 mmol/L 07/15/2025 5:31 AM EDT [facility] Potassium, Plasma 4.1 3.6 - 4.9 mmol/L 07/15/2025 5:31 AM EDT [facility] Chloride, Plasma 95(L) 97 - 107 mmol/L 07/15/2025 5:31 AM EDT [facility] CO2, Plasma 32(H) 22 - 29 mmol/L 07/15/2025 5:31 AM EDT [facility] Anion Gap 9 6 - 16 mmol/L 07/15/2025 5:31 AM EDT [facility] Total Calcium, Plasma 8.8(L) 8.9 - 10.2 mg/dL 07/15/2025 5:31 AM EDT [facility] eGFRcr 113.0 mL/min/1.7 3m*2 07/15/2025 5:31 AM EDT [facility] Comment:Reported eGFRcr in m L/min/1.73m2 is based the CKD-EPI 2020 equation that does not use a race coefficient. Blood Venous blood specimen / Unknown Venipuncture / Unknown 07/15/2025 4:50 AM EDT 07/15/2025 4:59 AM EDT us Anne Franco MD LAB BLOOD ORDERABLES Sarah l Result Performing Organization Address City/[facility] Co de Phone Number [facility] [address] [place] [phone] * (ABNORMAL) POCT glucose meter (07/14/2025 7:57 [...] Comment 07/14/2025 7:58 PM EDT [facility]ALTHCARE LAB Die Drawing Checker ID Bernard Chirinos 07/14/20 25 7:58 PM EDT HEALTHCARE LAB Device ID [id number] 07/14/2025 7:58 PM EDT [facility]ALTH[facility]ARE LAB Specimen Type POC Capillary 07/14/2025 7:58 PM EDT [facility] Blood Capillary blood specimen / Unknown 07/14/2025 7:57 PM EDT 07/14/2025 7:58 PM EDT us Anne Franco MD LAB POINT OF CARE TEST DOCKED DEVICE UNSOLICITED RESULTS Final Result Performing Organization Address City/[facility]/ZIP Co de Phone Number [facility] [address] [place] [address] * (ABNORMAL) POCT glucose meter (07/14/2025 4:56 PM EDT) [facility] POCT Glucose 154(H) 74 - 99 mg/dL [...] Comment 07/14/2025 4:58 PM EDT [facility]ALTHCARE LAB Die Drawing Checker ID HigginsDerrick [email or web address] Bennett 07/14/2025 4:58 PM EDT [facility]ALTH[facility]ARE LAB Device ID [id number] 07/14/2025 4:58 PM EDT [facility]ARE LAB Specimen Type POC Capillary 07/14/2025 4:58 PM EDT [facility] Blood Capillary blood specimen / Unknown 07/14/2025 4:56 PM EDT 07/14/2025 4:58 PM EDT Anne Franco MD LAB POINT OF CARE TEST DOCKED DEVICE UNSOLICITED RESULTS Final Result [facility] [address] [place] [address] * (ABNORMAL) POCT glucose meter (07/14/2025 12:38 PM EDT) [facility] POCT Glucose 143(H) 74 - 99 mg/dL [...] 07/14/2025 12:39 PM EDT [facility] Die Drawing Checker ID Laura Baez 025 12:39 PM EDT [facility] Device ID [id number] 07/14/2025 12:39 PM EDT [facility]ALTH[facility]ARE LAB Specimen Type POC Capillary 07/14/2025 12:39 PM EDT [facility] Blood Capillary blood specimen / Unknown 07/14/2025 12:38 PM EDT 07/14/2025 12:39 PM EDT us Anne Franco MD LAB POINT OF CARE TEST DOCKED DEVICE UNSOLICITED RESULTS Final Result [facility] [address] [place] [address] * (ABNORMAL) Basic metabolic panel (07/14/2025 9:36 AM EDT) Glucose, Plasma 191(H) 74 - 99 mg/dL 07/14/2025 10:15 AM EDT [facility] BUN, Plasma 16 7 - 21 mg/dL 07/14/2025 10:15 AM EDT [facility] Creatinine, Plasma 0.61 0.60 - 1.10 mg/dL 07/14/2025 10:15 AM EDT [facility] BUN/Creatinine Ratio 26 07/14/2025 10:15 AM EDT [facility] Sodium, Plasma 138 136 - 145 mmol/L 07/14/2025 10:15 AM EDT [facility] Potassium, Plasma 3.2(L) 3.6 - 4.9 mmol/L 07/14/2025 10:15 AM EDT [facility] Chloride, Plasma 96(L) 97 - 107 mmol/L 07/14/2025 10:15 AM EDT [facility] CO2, Plasma 33(H) 22 - 29 mmol/L 07/14/2025 10:15 AM EDT [facility] Anion Gap 9 6 - 16 mmol/L 07/14/2025 10:15 AM EDT [facility] Total Calcium, Plasma 8.7(L) 8.9 - 10.2 mg/dL 07/14/2025 10:15 AM EDT [facility] eGFRcr 109.8 mL/min/1.7 3m*2 07/14/2025 10:15 AM EDT [facility] Comment:Reported eGFRcr in m L/min/1.73m2 is based the CKD-EPI 2020 equation that does not use a race coefficient. Blood Venous blood specimen / Unknown Venipuncture / Unknown 07/14/2025 9:36 AM EDT 07/14/2025 9:44 AM EDT us Anne Franco MD LAB BLOOD ORDERABLES Sarah l Result Performing Organization Address City/[facility]/ZIP Co de Phone Number [facility] [address] [place] [address] * (ABNORMAL) Magnesium, Plasma (07/14/2025 9:36 AM EDT) Magnesium, Plasma 1.7(L) 1.9 - 2.4 mg/dL 07/14/2025 10:15 AM EDT [facility] Blood Venous blood specimen / Unknown Venipuncture / Unknown 07/14/2025 9:36 AM EDT 07/14/2025 9:44 AM EDT us Anne Franco MD LAB BLOOD ORDERABLES Sarah l Result Performing Organization Address [facility] [place] [address] * (ABNORMAL) Phosphorus, Plasma (07/14/2025 9:36 AM EDT) Phosphorus, Plasma 2.2(L) 2.5 - 4.5 mg/dL 07/14/2025 10:15 AM EDT [facility] Blood Venous blood specimen / Unknown Venipuncture / Unknown 07/14/2025 9:36 AM EDT 07/14/2025 9:44 AM EDT us Anne Franco MD LAB BLOOD ORDERABLES Sarah l Result Performing Organization Address City/[facility] Co de Phone Number [facility] [address] [place] [address] * (ABNORMAL) CBC W/O Differential (07/14/2025 9:36 AM EDT) WBC Count 21.20(H) 3.70 - 10.30 10*3/uL LAB HEMATOLOGY METHOD 07/14/2025 9:52 AM EDT [facility] RBC Count 3.37(L) 3.90 - 5.20 10*6/uL LAB HEMATOLOGY METHOD 07/14/2025 9:52 AM EDT [facility] HGB 9.2(L) 11.2 - 15.7 g/dL LAB HEMATOLOGY METHOD 07/14/2025 9:52 AM EDT [facility] HCT 29.4(L) 34.0 - 45.0 % LAB HEMATOLOGY METHOD 07/14/2025 9:52 AM EDT [facility] Platelet Count 314 155 - 369 10*3/uL LAB HEMATOLOGY METHOD 07/14/2025 9:52 AM EDT [facility] MCV 87 79 - 98 fL LAB HEMATOLOGY METHOD 07/14/2025 9:52 AM EDT [facility] MCH 27.3 26.0 - 32.0 pg LAB HEMATOLOGY METHOD 07/14/2025 9:52 AM EDT [facility] MCHC 31.3 30.7 - 35.5 g/dL LAB HEMATOLOGY METHOD 07/14/2025 9:52 AM EDT [facility] RDW 17.2(H) 11.5 - 14.5 % LAB HEMATOLOGY METHOD 07/14/2025 9:52 AM EDT [facility] MPV 10.2 8.8 - 12.5 fL LAB HEMATOLOGY METHOD 07/14/2025 9:52 AM EDT [facility] nRBC 0.1(H) <=0.0 per 100 WBCs LAB HEMATOLOGY METHOD 07/14/2025 9:52 AM EDT [facility] Blood Venous blood specimen / Unknown Venipuncture / Unknown 07/14/2025 9:36 AM EDT 07/14/2025 9:44 AM EDT us Anne Franco MD LAB BLOOD ORDERABLES Sarah bennett Result [facility] [address] [place] [address] * (ABNORMAL) POCT glucose meter (07/14/2025 8:39 [...] Comment 07/14/2025 8:41 AM EDT [facility]ALTHCARE LAB Die Drawing Checker ID Laura Baez 025 8:41 AM EDT HEALTHCARE LAB Device ID [id number] 07/14/2025 8:41 AM EDT [facility]ALTH[facility]ARE LAB Specimen Type POC Capillary 07/14/2025 8:41 AM EDT [facility] Blood Capillary blood specimen / Unknown 07/14/2025 8:39 AM EDT 07/14/2025 8:41 AM EDT us Anne Franco MD LAB POINT OF CARE TEST DOCKED DEVICE UNSOLICITED RESULTS Final Result Performing Organization Address City/State/[facility] Co de Phone Number [facility] [address] [place] [address] * (ABNORMAL) POCT glucose meter (07/14/2025 6:18 AM EDT) Pathologist [facility] POCT Glucose 178(H) 74 - 99 mg/dL [...] for testing. Comment 07/14/2025 6:20 AM EDT [facility] Die Drawing Checker ID Rita Alejandro 6:20 AM EDT [facility] Device ID [id number] 07/14/2025 6:20 AM EDT [facility] Specimen Type POC Capillary 07/14/2025 6:20 AM EDT [facility] Blood Capillary blood specimen / Unknown 07/14/2025 6:18 AM EDT 07/14/2025 6:20 AM EDT Anne Franco MD LAB POINT OF CARE TEST DOCKED DEVICE UNSOLICITED RESULTS Final Result Performing Organization Address City/[facility]/ZIP Co de Phone Number [facility] [address] [place] [address] * (ABNORMAL) POCT glucose meter (07/13/2025 9:18 [...] Comment 07/13/2025 9:19 PM EDT [facility]ARE [facility] Die Drawing Checker ID Yenny Tong 025 9:19 PM EDT HEALTH[facility]ARE LAB Device ID [id number] 07/13/2025 9:19 PM EDT [facility] Specimen Type POC Capillary 07/13/2025 9:19 PM EDT [facility] Blood Capillary blood specimen / Unknown 07/13/2025 9:18 PM EDT 07/13/2025 9:19 PM EDT us Anne Franco MD LAB POINT OF CARE TEST DOCKED DEVICE UNSOLICITED RESULTS Final Result Performing Organization Address City/[facility]/ZIP Co de Phone Number [facility] [address] [place] [address] * (ABNORMAL) POCT glucose meter (07/13/2025 6:01 [...] Comment 07/13/2025 6:02 PM EDT [facility]ALTH[facility]ARE LAB Die Drawing Checker ID Laura Baez 025 6:02 PM EDT HEALTHCARE LAB Device ID [id number] 07/13/2025 6:02 PM EDT HEALTH[facility]ARE LAB Specimen Type POC Capillary 07/13/2025 6:02 PM EDT [facility] Blood Capillary blood specimen / Unknown 07/13/2025 6:01 PM EDT 07/13/2025 6:02 PM EDT Anne Franco MD LAB POINT OF CARE TEST DOCKED DEVICE UNSOLICITED RESULTS Final Result Performing Organization Address City/State/[facility] Co de Phone Number [facility] [address] [place] [address] * (ABNORMAL) POCT glucose meter (07/13/2025 12:12 [...] Comment 07/13/2025 12:14 PM EDT [facility]ARE [facility] Die Drawing Checker ID Laura Baez 025 12:14 PM EDT HEALTH[facility]ARE LAB Device ID [id number] 07/13/2025 12:14 PM EDT [facility]ALTH[facility]ARE LAB Specimen Type POC Capillary 07/13/2025 12:14 PM EDT [facility] Blood Capillary blood specimen / Unknown 07/13/2025 12:12 PM EDT 07/13/2025 12:14 PM EDT us Anne Franco MD LAB POINT OF CARE TEST DOCKED DEVICE UNSOLICITED RESULTS Final Result Performing Organization Address [facility] Co de Phone Number [facility] [address] [place] [address] * (ABNORMAL) Phosphorus (07/13/2025 10:21 AM EDT) Phosphorus, Plasma 2.2(L) 2.5 - 4.5 mg/dL 07/13/2025 11:23 AM EDT [facility] Blood Venous blood specimen / Unknown Venipuncture / Unknown 07/13/2025 10:21 AM EDT 07/13/2025 10:31 AM EDT us Luanne Crawford MD LAB BLOOD ORDERABLES Final Result Performing Organization Address [facility] Co de Phone Number [facility] [address] [place] [address] * (ABNORMAL) Magnesium, Plasma (07/13/2025 10:21 AM EDT) Magnesium, Plasma 1.7(L) 1.9 - 2.4 mg/dL 07/13/2025 11:23 AM EDT [facility] Blood Venous blood specimen / Unknown Venipuncture / Unknown 07/13/2025 10:21 AM EDT 07/13/2025 10:31 AM EDT Luanne Crawford MD LAB BLOOD ORDERABLES Final Result Performing Organization Address [facility] Co de Phone Number [facility] [address] [place] [address] * (ABNORMAL) Basic Metabolic Panel, Plasma (07/13/2025 10:21 AM EDT) Glucose, Plasma 135(H) 74 - 99 mg/dL 07/13/2025 11:23 AM EDT [facility] BUN, Plasma 22(H) 7 - 21 mg/dL 07/13/2025 11:23 AM EDT [facility] Creatinine, Plasma 0.62 0.60 - 1.10 mg/dL 07/13/2025 11:23 AM EDT [facility] BUN/Creatinine Ratio 35 07/13/2025 11:23 AM EDT [facility] Sodium, Plasma 138 136 - 145 mmol/L 07/13/2025 11:23 AM EDT [facility] Potassium, Plasma 3.7 3.6 - 4.9 mmol/L 07/13/2025 11:23 AM EDT [facility] Chloride, Plasma 95(L) 97 - 107 mmol/L 07/13/2025 11:23 AM EDT [facility] CO2, Plasma 30(H) 22 - 29 mmol/L 07/13/2025 11:23 AM EDT [facility] Anion Gap 13 6 - 16 mmol/L 07/13/2025 11:23 AM EDT [facility] Total Calcium, Plasma 9.0 8.9 - 10.2 mg/dL 07/13/2025 11:23 AM EDT [facility] eGFRcr 109.3 mL/min/1.7 3m*2 07/13/2025 11:23 AM EDT [facility] Comment:Reported eGFRcr in m L/min/1.73m2 is based the CKD-EPI 2020 equation that does not use a race coefficient. Blood Venous blood specimen / Unknown Venipuncture / Unknown 07/13/2025 10:21 AM EDT 07/13/2025 10:31 AM EDT us Luanne Crawford MD LAB BLOOD ORDERABLES Final Result [facility] [address] [place] [address] * (ABNORMAL) CBC W/O Differential (07/13/2025 10:21 AM EDT) WBC Count 19.56(H) 3.70 - 10.30 10*3/uL LAB HEMATOLOGY METHOD 07/13/2025 10:59 AM EDT [facility] RBC Count 3.67(L) 3.90 - 5.20 10*6/uL LAB HEMATOLOGY METHOD 07/13/2025 10:59 AM EDT [facility] HGB 10.2(L) 11.2 - 15.7 g/dL LAB HEMATOLOGY METHOD 07/13/2025 10:59 AM EDT [facility] HCT 32.3(L) 34.0 - 45.0 % LAB HEMATOLOGY METHOD 07/13/2025 10:59 AM EDT [facility] Platelet Count 296 155 - 369 10*3/uL LAB HEMATOLOGY METHOD 07/13/2025 10:59 AM EDT [facility] MCV 88 79 - 98 fL LAB HEMATOLOGY METHOD 07/13/2025 10:59 AM EDT [facility] MCH 27.8 26.0 - 32.0 pg LAB HEMATOLOGY METHOD 07/13/2025 10:59 AM EDT [facility] MCHC 31.6 30.7 - 35.5 g/dL LAB HEMATOLOGY METHOD 07/13/2025 10:59 AM EDT [facility] RDW 17.6(H) 11.5 - 14.5 % LAB HEMATOLOGY METHOD 07/13/2025 10:59 AM EDT [facility] MPV 10.3 8.8 - 12.5 fL LAB HEMATOLOGY METHOD 07/13/2025 10:59 AM EDT [facility] nRBC 0.0 <=0.0 per 100 WBCs LAB HEMATOLOGY METHOD 07/13/2025 10:59 AM EDT [facility] Blood Venous blood specimen / Unknown Venipuncture / Unknown 07/13/2025 10:21 AM EDT 07/13/2025 10:31 AM EDT us Luanne Crawford MD LAB BLOOD ORDERABLES Final Result [facility] [address] [place] [address] * (ABNORMAL) POCT glucose meter (07/13/2025 8:50 AM EDT) [facility] POCT Glucose 102(H) 74 - 99 mg/dL 07/13/2025 8:53 AM EDT [facility] Comment:Accuracy of a glucos [...] Comment 07/13/2025 8:53 AM EDT HEALTHCARE LAB Die Drawing Checker ID Laura Baez 025 8:53 AM EDT [facility] Device ID [id number] 07/13/2025 8:53 AM EDT [facility]ALTH[facility]ARE LAB Specimen Type POC Capillary 07/13/2025 8:53 AM EDT [facility] Blood Capillary blood specimen / Unknown 07/13/2025 8:50 AM EDT 07/13/2025 8:53 AM EDT us Anne Franco MD LAB POINT OF CARE TEST DOCKED DEVICE UNSOLICITED RESULTS Final Result Performing Organization Address [facility] de Phone Number HEALTHCARE [facility] [address] [place] [address] * (ABNORMAL) POCT glucose meter (07/13/2025 6:11 [...] 07/13/2025 6:13 AM EDT [facility] Die Drawing Checker ID Rita Alejandro 6:13 AM EDT HEALTHCARE LAB Device ID [id number] 07/13/2025 6:13 AM EDT [facility]ALTH[facility]ARE LAB Specimen Type POC Capillary 07/13/2025 6:13 AM EDT [facility] Blood Capillary blood specimen / Unknown 07/13/2025 6:11 AM EDT 07/13/2025 6:13 AM EDT us Anne Franco MD LAB POINT OF CARE TEST DOCKED DEVICE UNSOLICITED RESULTS Final Result Performing Organization Address City/[facility] Co de Phone Number [facility] [address] [place] [address] * (ABNORMAL) POCT glucose meter (07/12/2025 9:28 PM EDT) [facility] POCT Glucose 107(H) 74 - 99 mg/dL [...] Comment 07/12/2025 9:30 PM EDT [facility]ALTHCARE LAB Die Drawing Checker ID Yenny Tong 025 9:30 PM EDT HEALTHCARE LAB Device ID [id number] 07/12/2025 9:30 PM EDT [facility]ALTH[facility]ARE LAB Specimen Type POC Capillary 07/12/2025 9:30 PM EDT [facility] Blood Capillary blood specimen / Unknown 07/12/2025 9:28 PM EDT 07/12/2025 9:30 PM EDT Anne Franco MD LAB POINT OF CARE TEST DOCKED DEVICE UNSOLICITED RESULTS Final Result [facility] [address] [place] [address] * (ABNORMAL) POCT glucose meter (07/12/2025 6:04 PM EDT) [facility] POCT Glucose 129(H) 74 - 99 mg/dL [...] for testing. Comment 07/12/2025 6:06 PM EDT [facility] Die Drawing Checker ID Jeana Bear 07/12/2025 6:06 PM EDT [facility] Device ID [id number] 07/12/2025 6:06 PM EDT [facility]ALTH[facility]ARE LAB Specimen Type POC Capillary 07/12/2025 6:06 PM EDT [facility] Blood Capillary blood specimen / Unknown 07/12/2025 6:04 PM EDT 07/12/2025 6:06 PM EDT Anne Franco MD LAB POINT OF CARE TEST DOCKED DEVICE UNSOLICITED RESULTS Final Result [facility] [address] [place] [address] * PERIPHERAL IV (SMART[employer] LINK) (07/12/2025 3:51 [...] ultrasound and/or 3CG images sent to PACS. Result [facility] Anne Franco MD IV THERAPY ORDERABLES Fin [...] Comment 07/12/2025 11:56 AM EDT HEALTHCARE LAB Die Drawing Checker ID Jeana Bear 07/12/2025 11:56 AM EDT HEALTHCARE LAB Device ID [id number] 07/12/2025 11:56 AM EDT [facility]ALTHCARE LAB Specimen Type POC Capillary 07/12/2025 11:56 AM EDT [facility]ALTH[facility] Blood Capillary blood specimen / Unknown 07/12/2025 11:55 AM EDT 07/12/2025 11:56 AM EDT Dorcas Hennessy MD LAB POINT OF CARE TE ST DOCKED DEVICE UNSOLICITED RESULTS Final Result Performing Organization Address City/State/[facility] Co de Phone Number HEALTHCARE LAB [address] [place] [id number] * XR Chest 1 View (07/12/2025 11:11 [...] for testing. Comment 07/12/2025 8:42 AM EDT [facility] Die Drawing Checker ID Jeana Bear 07/12/2025 8:42 AM EDT HEALTHCARE LAB Device ID [id number] 07/12/2025 8:42 AM EDT [facility] Specimen Type POC Capillary 07/12/2025 8:42 AM EDT [facility] Blood Capillary blood specimen / Unknown 07/12/2025 8:41 AM EDT 07/12/2025 8:42 AM EDT us Dorcas Hennessy MD LAB POINT OF CARE TE ST DOCKED DEVICE UNSOLICITED RESULTS Final Result Performing Organization Address City/[facility]/ZIP Co de Phone Number [facility] [address] [place] [address] * Phosphorus (07/12/2025 12:25 AM EDT) Pathologist [facility] Phosphorus, Plasma 2.9 2.5 - 4.5 mg/dL 07/12/2025 1:22 AM EDT [facility] Blood Venous blood specimen / Unknown Venipuncture / Unknown 07/12/2025 12:25 AM EDT 07/12/2025 12:52 AM EDT us Luanne Crawford MD LAB BLOOD ORDERABLES Final Result [facility] [address] [place] [address] * Magnesium, Plasma (07/12/2025 12:25 AM EDT) Magnesium, Plasma 2.0 1.9 - 2.4 mg/dL 07/12/2025 1:22 AM EDT [facility] Blood Venous blood specimen / Unknown Venipuncture / Unknown 07/12/2025 12:25 AM EDT 07/12/2025 12:52 AM EDT us Luanne Crawford MD LAB BLOOD ORDERABLES Final Result [facility] [address] [place] [address] * (ABNORMAL) Basic Metabolic Panel, Plasma (07/12/2025 12:25 AM EDT) Glucose, Plasma 92 74 - 99 mg/dL 07/12/2025 1:22 AM EDT [facility] BUN, Plasma 18 7 - 21 mg/dL 07/12/2025 1:22 AM EDT [facility] Creatinine, Plasma 0.84 0.60 - 1.10 mg/dL 07/12/2025 1:22 AM EDT [facility] BUN/Creatinine Ratio 21 07/12/2025 1:22 AM EDT [facility] Sodium, Plasma 142 136 - 145 mmol/L 07/12/2025 1:22 AM EDT [facility] Potassium, Plasma 3.6 3.6 - 4.9 mmol/L 07/12/2025 1:22 AM EDT [facility] Chloride, Plasma 103 97 - 107 mmol/L 07/12/2025 1:22 AM EDT [facility] CO2, Plasma 31(H) 22 - 29 mmol/L 07/12/2025 1:22 AM EDT [facility] Anion Gap 8 6 - 16 mmol/L 07/12/2025 1:22 AM EDT [facility] Total Calcium, Plasma 8.8(L) 8.9 - 10.2 mg/dL 07/12/2025 1:22 AM EDT [facility] eGFRcr 85.3 mL/min/1.7 3m*2 07/12/2025 1:22 AM EDT [facility] Comment:Reported eGFRcr in m L/min/1.73m2 is based the CKD-EPI 2020 equation that does not use a race coefficient. Blood Venous blood specimen / Unknown Venipuncture / Unknown 07/12/2025 12:25 AM EDT 07/12/2025 12:52 AM EDT us Luanne Crawford MD LAB BLOOD ORDERABLES Final Result [facility] [address] [place] [address] * (ABNORMAL) CBC W/O Differential (07/12/2025 12:25 AM EDT) WBC Count 15.81(H) 3.70 - 10.30 10*3/uL LAB HEMATOLOGY METHOD 07/12/2025 1:05 AM EDT [facility] RBC Count 3.39(L) 3.90 - 5.20 10*6/uL LAB HEMATOLOGY METHOD 07/12/2025 1:05 AM EDT [facility] HGB 9.3(L) 11.2 - 15.7 g/dL LAB HEMATOLOGY METHOD 07/12/2025 1:05 AM EDT [facility] HCT 29.8(L) 34.0 - 45.0 % LAB HEMATOLOGY METHOD 07/12/2025 1:05 AM EDT [facility] Platelet Count 276 155 - 369 10*3/uL LAB HEMATOLOGY METHOD 07/12/2025 1:05 AM EDT [facility] MCV 88 79 - 98 fL LAB HEMATOLOGY METHOD 07/12/2025 1:05 AM EDT [facility] MCH 27.4 26.0 - 32.0 pg LAB HEMATOLOGY METHOD 07/12/2025 1:05 AM EDT [facility] MCHC 31.2 30.7 - 35.5 g/dL LAB HEMATOLOGY METHOD 07/12/2025 1:05 AM EDT [facility] RDW 18.0(H) 11.5 - 14.5 % LAB HEMATOLOGY METHOD 07/12/2025 1:05 AM EDT [facility] MPV 10.5 8.8 - 12.5 fL LAB HEMATOLOGY METHOD 07/12/2025 1:05 AM EDT [facility] nRBC 0.0 <=0.0 per 100 WBCs LAB HEMATOLOGY METHOD 07/12/2025 1:05 AM EDT [facility] Blood Venous blood specimen / Unknown Venipuncture / Unknown 07/12/2025 12:25 AM EDT 07/12/2025 12:55 AM EDT us Luanne Crawford MD LAB BLOOD ORDERABLES Final Result [facility] [address] [place] [address] * (ABNORMAL) POCT Glucose (if patient NPO, on TPN or continuous nutrition) (07/11/2025 8:45 PM EDT) POCT Glucose 119(A) 74 - 99 mg/dL [facility] Test Strip Lot Number [id number]\ [facility] Test Strip Expiration 09/24/2026 [facility] Blood Venous blood specimen / Unknown 07/11/2025 8:45 PM EDT us Dorcas Hennessy MD POINT OF CARE TEST ENTER/EDIT OR DERABLES Final Result Performing Organization Address [facility] Co de Phone Number [facility] [address] [place] [address] * (ABNORMAL) POCT Glucose - Before Meals and Bedtime (07/11/2025 8:43 PM EDT) POCT Glucose 119(A) 74 - 99 mg/dL [facility] Test Strip Lot Number [id number] [facility] Test Strip Expiration 09/24/2026 [facility] Blood Venous blood specimen / Unknown 07/11/2025 8:43 PM EDT us Dorcas Hennessy MD POINT OF CARE TEST ENTER/EDIT OR DERABLES Final Result [facility] [address] [place] [address] * (ABNORMAL) POCT glucose meter (07/11/2025 8:42 PM EDT) [facility] POCT Glucose 119(H) 74 - 99 mg/dL [...] 07/11/2025 8:43 PM EDT [facility] Die Drawing Checker ID Jf Cruz 07/11/2025 8:43 PM EDT [facility] Device ID [id number] 07/11/2025 8:43 PM EDT [facility] Specimen Type POC Capillary 07/11/2025 8:43 PM EDT [facility] Blood Capillary blood specimen / Unknown 07/11/2025 8:42 PM EDT 07/11/2025 8:43 PM EDT Dorcas Henenssy MD LAB POINT OF CARE TE ST DOCKED DEVICE UNSOLICITED RESULTS Final Result [facility] [address] [place] [address] * (ABNORMAL) POCT glucose meter (07/11/2025 5:38 PM EDT) [facility] POCT Glucose 142(H) 74 - 99 mg/dL [...] 07/11/2025 5:40 PM EDT [facility] Die Drawing Checker ID Ayana Amato 07/11/2025 5:40 PM EDT [facility] Device ID [id number] 07/11/2025 5:40 PM EDT [facility] Specimen Type POC Capillary 07/11/2025 5:40 PM EDT [facility] Blood Capillary blood specimen / Unknown 07/11/2025 5:38 PM EDT 07/11/2025 5:40 PM EDT us Dorcas Hennessy MD LAB POINT OF CARE TE ST DOCKED DEVICE UNSOLICITED RESULTS Final Result Performing Organization Address [facility] Co de Phone Number [facility] [address] [place] [address] * (ABNORMAL) POCT glucose meter (07/11/2025 3:36 [...] 07/11/2025 3:38 PM EDT [facility] Die Drawing Checker ID Radha Frias 07/11/20 3:38 PM EDT [facility] Device ID [id number] 07/11/2025 3:38 PM EDT [facility] Specimen Type POC Venous 07/11/2025 3:38 PM EDT [facility] Blood Venous blood specimen / Unknown 07/11/2025 3:36 PM EDT 07/11/2025 3:38 PM EDT us Dorcas Hennessy MD LAB POINT OF CARE TE ST DOCKED DEVICE UNSOLICITED RESULTS Final Result Performing Organization Address [facility] Co de Phone Number [facility] [address] [place] [address] * (ABNORMAL) POCT glucose meter (07/11/2025 1:52 [...] 07/11/2025 1:54 PM EDT [facility] Die Drawing Checker ID Ayana Amato 07/11/2025 1:54 PM EDT [facility] Device ID [id number] 07/11/2025 1:54 PM EDT [facility] Specimen Type POC Capillary 07/11/2025 1:54 PM EDT [facility] Blood Capillary blood specimen / Unknown 07/11/2025 1:52 PM EDT 07/11/2025 1:54 PM EDT Dorcas Hennessy MD LAB POINT OF CARE TE ST DOCKED DEVICE UNSOLICITED RESULTS Final Result Performing Organization Address City/State/[facility] Co de Phone Number [facility] [address] [place] [address] * (ABNORMAL) POCT glucose meter (07/11/2025 12:12 PM EDT) [facility] POCT Glucose 154(H) 74 - 99 mg/dL [...] 07/11/2025 12:13 PM EDT [facility] Die Drawing Checker ID Ayana Amato 07/11/2025 12:13 PM EDT [facility] Device ID [id number] 07/11/2025 12:13 PM EDT [facility] Specimen Type POC Capillary 07/11/2025 12:13 PM EDT [facility] Blood Capillary blood specimen / Unknown 07/11/2025 12:12 PM EDT 07/11/2025 12:13 PM EDT Luanne Crawford MD LAB POINT OF CARE TEST DOCKED DEVICE UNSOLICITED RESULTS Final Result Performing Organization Address [facility] de Phone Number [facility] [address] [place] [address] * (ABNORMAL) POCT glucose meter (07/11/2025 9:57 AM EDT) POCT Glucose 135(H) 74 - 99 mg/dL 07/11/2025 9:59 AM EDT [facility] Comment:Accuracy of a [...] for testing. Comment 07/11/2025 9:59 AM EDT [facility] Die Drawing Checker ID Ayana Amato 07/11/2025 9:59 AM EDT [facility] Device ID [id number] 07/11/2025 9:59 AM EDT [facility] Specimen Type POC Capillary 07/11/2025 9:59 AM EDT [facility] Blood Capillary blood specimen / Unknown 07/11/2025 9:57 AM EDT 07/11/2025 9:59 AM EDT us Luanne Crawford MD LAB POINT OF CARE TEST DOCKED DEVICE UNSOLICITED RESULTS Final Result Performing Organization Address [facility] de Phone Number [facility] [address] [place] [address] * ID CRITICAL CARE, E/M 30-74 MINUTES (07/11/2025 8:41 [...] able. OR today for possible wound VAC. Dorcsa Hennessy MD, PhD Acute Care Surgery, Trauma and Surgical Critical Care us Dorcas Hennessy MD IN CLINIC/BEDSIDE ORDERABLES Fin al Result * (ABNORMAL) POCT glucose meter (07/11/2025 8:13 AM EDT) [facility] POCT Glucose 140(H) 74 - 99 mg/dL 07/11/2025 8:15 AM EDT [facility] Comment:Accuracy of a glucos e [...] for testing. Comment 07/11/2025 8:15 AM EDT [facility] Die Drawing Checker ID Ayana Amato 07/11/2025 8:15 AM EDT [facility] Device ID [id number] 07/11/2025 8:15 AM EDT [facility] Specimen Type POC Capillary 07/11/2025 8:15 AM EDT [facility] Blood Capillary blood specimen / Unknown 07/11/2025 8:13 AM EDT 07/11/2025 8:15 AM EDT us Luanne Crawford MD LAB POINT OF CARE TEST DOCKED DEVICE UNSOLICITED RESULTS Final Result Performing Organization Address [facility] de Phone Number [facility] [address] [place] [address] * (ABNORMAL) POCT glucose meter (07/11/2025 6:03 [...] Comment 07/11/2025 6:05 AM EDT [facility] Die Drawing Checker ID Cheyanne Briceño 07/11/2025 6:05 AM EDT [facility] Device ID [id number] 07/11/2025 6:05 AM EDT [facility] Specimen Type POC Capillary 07/11/2025 6:05 AM EDT [facility] Blood Capillary blood specimen / Unknown 07/11/2025 6:03 AM EDT 07/11/2025 6:05 AM EDT us Luanne Crawford MD LAB POINT OF CARE TEST DOCKED DEVICE UNSOLICITED RESULTS Final Result Performing Organization Address [facility] de Phone Number [facility] [address] [place] [address] * (ABNORMAL) POCT glucose meter (07/11/2025 4:04 [...] 07/11/2025 4:06 AM EDT [facility] Die Drawing Checker ID Cheyanne Briceño 07/11/2025 4:06 AM EDT [facility] Device ID [id number] 07/11/2025 4:06 AM EDT [facility] Specimen Type POC Capillary 07/11/2025 4:06 AM EDT [facility] Blood Capillary blood specimen / Unknown 07/11/2025 4:04 AM EDT 07/11/2025 4:06 AM EDT us Luanne Crawford MD LAB POINT OF CARE TEST DOCKED DEVICE UNSOLICITED RESULTS Final Result Performing Organization Address [facility] Co de Phone Number [facility] [address] [place] [address] * (ABNORMAL) POCT glucose meter (07/11/2025 2:02 AM EDT) POCT Glucose 130(H) 74 - 99 mg/dL 07/11/2025 2:03 AM EDT [facility] Comment:Accuracy of [...] Comment 07/11/2025 2:03 AM EDT [facility] Die Drawing Checker ID Cheyanne Briceño 07/11/2025 2:03 AM EDT [facility] Device ID [id number] 07/11/2025 2:03 AM EDT [facility] Specimen Type POC Capillary 07/11/2025 2:03 AM EDT [facility] Blood Capillary blood specimen / Unknown 07/11/2025 2:02 AM EDT 07/11/2025 2:03 AM EDT us Luanne Crawford MD LAB POINT OF CARE TEST DOCKED DEVICE UNSOLICITED RESULTS Final Result Performing Organization Address [facility] Co de Phone Number [facility] [address] [place] [address] * Phosphorus (07/11/2025 12:09 AM EDT) Phosphorus, Plasma 3.7 2.5 - 4.5 mg/dL 07/11/2025 12:54 AM EDT [facility] Blood Venous blood specimen / Unknown Venipuncture / Unknown 07/11/2025 12:09 AM EDT 07/11/2025 12:26 AM EDT Luanne Crawford MD LAB BLOOD ORDERABLES Final Result [facility] [address] [place] [address] * (ABNORMAL) Magnesium, Plasma (07/11/2025 12:09 AM EDT) Magnesium, Plasma 1.8(L) 1.9 - 2.4 mg/dL 07/11/2025 12:54 AM EDT [facility] Blood Venous blood specimen / Unknown Venipuncture / Unknown 07/11/2025 12:09 AM EDT 07/11/2025 12:26 AM EDT Luanne Crawford MD LAB BLOOD ORDERABLES Final Result Performing Organization Address [facility]/ZIP Co de Phone Number [facility] [address] [place] [address] * (ABNORMAL) Basic Metabolic Panel, Plasma (07/11/2025 12:09 AM EDT) Glucose, Plasma 163(H) 74 - 99 mg/dL 07/11/2025 12:54 AM EDT [facility] BUN, Plasma 20 7 - 21 mg/dL 07/11/2025 12:54 AM EDT [facility] Creatinine, Plasma 0.99 0.60 - 1.10 mg/dL 07/11/2025 12:54 AM EDT [facility] BUN/Creatinine Ratio 20 07/11/2025 12:54 AM EDT [facility] Sodium, Plasma 141 136 - 145 mmol/L 07/11/2025 12:54 AM EDT [facility] Potassium, Plasma 3.8 3.6 - 4.9 mmol/L 07/11/2025 12:54 AM EDT [facility] Chloride, Plasma 104 97 - 107 mmol/L 07/11/2025 12:54 AM EDT [facility] CO2, Plasma 27 22 - 29 mmol/L 07/11/2025 12:54 AM EDT [facility] Anion Gap 10 6 - 16 mmol/L 07/11/2025 12:54 AM EDT [facility] Total Calcium, Plasma 9.1 8.9 - 10.2 mg/dL 07/11/2025 12:54 AM EDT [facility] eGFRcr 70.0 mL/min/1.7 3m*2 07/11/2025 12:54 AM EDT [facility] Comment:Reported eGFRcr in m L/min/1.73m2 is based the CKD-EPI 2020 equation that does not use a race coefficient. Blood Venous blood specimen / Unknown Venipuncture / Unknown 07/11/2025 12:09 AM EDT 07/11/2025 12:26 AM EDT us Luanne Crawford MD LAB BLOOD ORDERABLES Final Result [facility] [address] [place] [address] * (ABNORMAL) CBC W/O Differential (07/11/2025 12:09 AM EDT) WBC Count 13.23(H) 3.70 - 10.30 10*3/uL LAB HEMATOLOGY METHOD 07/11/2025 12:36 AM EDT [facility] RBC Count 3.65(L) 3.90 - 5.20 10*6/uL LAB HEMATOLOGY METHOD 07/11/2025 12:36 AM EDT [facility] HGB 10.1(L) 11.2 - 15.7 g/dL LAB HEMATOLOGY METHOD 07/11/2025 12:36 AM EDT [facility] HCT 32.1(L) 34.0 - 45.0 % LAB HEMATOLOGY METHOD 07/11/2025 12:36 AM EDT [facility] Platelet Count 270 155 - 369 10*3/uL LAB HEMATOLOGY METHOD 07/11/2025 12:36 AM EDT [facility] MCV 88 79 - 98 fL LAB HEMATOLOGY METHOD 07/11/2025 12:36 AM EDT [facility] MCH 27.7 26.0 - 32.0 pg LAB HEMATOLOGY METHOD 07/11/2025 12:36 AM EDT [facility] MCHC 31.5 30.7 - 35.5 g/dL LAB HEMATOLOGY METHOD 07/11/2025 12:36 AM EDT [facility] RDW 17.9(H) 11.5 - 14.5 % LAB HEMATOLOGY METHOD 07/11/2025 12:36 AM EDT [facility] MPV 10.7 8.8 - 12.5 fL LAB HEMATOLOGY METHOD 07/11/2025 12:36 AM EDT [facility] nRBC 0.0 <=0.0 per 100 WBCs LAB HEMATOLOGY METHOD 07/11/2025 12:36 AM EDT [facility] Blood Venous blood specimen / Unknown Venipuncture / Unknown 07/11/2025 12:09 AM EDT 07/11/2025 12:29 AM EDT us Luanne Crawford MD LAB BLOOD ORDERABLES Final Result [facility] [address] [place] [address] * (ABNORMAL) POCT glucose meter (07/11/2025 12:04 AM EDT) POCT Glucose 156(H) 74 - 99 mg/dL 07/11/2025 12:06 AM EDT [facility] Comment:Accuracy of [...] for testing. Comment 07/11/2025 12:06 AM EDT [facility] Die Drawing Checker ID Cheyanne Briceño 07/11/2025 12:06 AM EDT [facility] Device ID [id number] 07/11/2025 12:06 AM EDT [facility] Specimen Type POC Capillary 07/11/2025 12:06 AM EDT [facility] Blood Capillary blood specimen / Unknown 07/11/2025 12:04 AM EDT 07/11/2025 12:06 AM EDT us Luanne Crawford MD LAB POINT OF CARE TEST DOCKED DEVICE UNSOLICITED RESULTS Final Result Performing Organization Address [facility] Co de Phone Number [facility] [address] [place] [address] * (ABNORMAL) POCT glucose meter (07/10/2025 10:02 [...] Comment 07/10/2025 10:03 PM EDT [facility] Die Drawing Checker ID Lidia Ugalde 07/10/2025 10:03 PM EDT [facility] Device ID [id number] 07/10/2025 10:03 PM EDT [facility] Specimen Type POC Capillary 07/10/2025 10:03 PM EDT [facility] Blood Capillary blood specimen / Unknown 07/10/2025 10:02 PM EDT 07/10/2025 10:03 PM EDT us Luanne Crawford MD LAB POINT OF CARE TEST DOCKED DEVICE UNSOLICITED RESULTS Final Result Performing Organization Address [facility] Co de Phone Number [facility] [address] [place] [address] * (ABNORMAL) Blood gas panel, arterial (07/10/2025 8:23 PM EDT) pH, Arterial 7.30(L) 7.35 - 7.45 LAB HEMATOLOGY METHOD 07/10/2025 8:40 PM EDT [facility] pCO2, Arterial 57(H) 35 - 48 mmHg LAB HEMATOLOGY METHOD 07/10/2025 8:40 PM EDT [facility] pO2, Arterial 80(L) 83 - 108 mmHg LAB HEMATOLOGY METHOD 07/10/2025 8:40 PM EDT [facility] SO2, Measured, Arterial 95 94 - 98 % LAB HEMATOLOGY METHOD 07/10/2025 8:40 PM EDT [facility] Base Excess, Arterial 1.1 -2.0 - 3.0 mmol/L LAB HEMATOLOGY METHOD 07/10/2025 8:40 PM EDT [facility] Bicarbonate, Calculated, Arterial 28(H) 22 - 26 mmol/L LAB HEMATOLOGY METHOD 07/10/2025 8:40 PM EDT [facility] Hematocrit, Whole Blood 31.5(L) 34.0 - 45.0 % LAB HEMATOLOGY METHOD 07/10/2025 8:40 PM EDT [facility] Sodium, Whole Blood 138 136 - 145 mmol/L LAB HEMATOLOGY METHOD 07/10/2025 8:40 PM EDT [facility] Potassium, Whole Blood 3.9 3.6 - 4.9 mmol/L LAB HEMATOLOGY METHOD 07/10/2025 8:40 PM EDT [facility] Chloride, Whole Blood 103 97 - 107 mmol/L LAB HEMATOLOGY METHOD 07/10/2025 8:40 PM EDT [facility] Glucose, Whole Blood 206(H) 74 - 99 mg/dL LAB HEMATOLOGY METHOD 07/10/2025 8:40 PM EDT [facility] Ionized Calcium, Whole Blood 5.0 4.6 - 5.1 mg/dL LAB HEMATOLOGY METHOD 07/10/2025 8:40 PM EDT [facility] Lactate, Arterial, Whole Blood 1.7(H) 0.5 - 1.6 mmol/L LAB HEMATOLOGY METHOD 07/10/2025 8:40 PM EDT [facility] Blood Arterial blood specimen / Unknown Arterial Puncture / Unknown 07/10/2025 8:23 PM EDT 07/10/2025 8:35 PM EDT us Luanne Crawford MD LAB BLOOD ORDERABLES Final Result [facility] [address] [place] [address] * (ABNORMAL) POCT glucose meter (07/10/2025 8:03 PM EDT) [facility] POCT Glucose 206(H) 74 - 99 mg/dL [...] 07/10/2025 8:05 PM EDT [facility] Die Drawing Checker ID Cheyanne Briceño 07/10/2025 8:05 PM EDT [facility] Device ID [id number] 07/10/2025 8:05 PM EDT [facility] Specimen Type POC Capillary 07/10/2025 8:05 PM EDT [facility] Blood Capillary blood specimen / Unknown 07/10/2025 8:03 PM EDT 07/10/2025 8:05 PM EDT Luanne Crawford MD LAB POINT OF CARE TEST DOCKED DEVICE UNSOLICITED RESULTS Final Result [facility] [address] [place] [address] * (ABNORMAL) POCT glucose meter (07/10/2025 6:22 PM EDT) [facility] POCT Glucose 150(H) 74 - 99 mg/dL [...] 07/10/2025 6:25 PM EDT [facility] Die Drawing Checker ID Segovai Zara Barry 025 6:25 PM EDT [facility] Device ID [id number] 07/10/2025 6:25 PM EDT [facility] Specimen Type POC Capillary 07/10/2025 6:25 PM EDT [facility] Blood Capillary blood specimen / Unknown 07/10/2025 6:22 PM EDT 07/10/2025 6:25 PM EDT us Luanne Crawford MD LAB POINT OF CARE TEST DOCKED DEVICE UNSOLICITED RESULTS Final Result Performing Organization Address City/[facility]/ZIP Co de Phone Number [facility] [address] [place] [address] * (ABNORMAL) POCT glucose meter (07/10/2025 2:17 PM EDT) [facility] POCT Glucose 145(H) 74 - 99 mg/dL [...] Comment 07/10/2025 2:19 PM EDT [facility] Die Drawing Checker ID Zara Segovia 025 2:19 PM EDT [facility] Device ID [id number] 07/10/2025 2:19 PM EDT [facility] Specimen Type POC Arterial 07/10/2025 2:19 PM EDT [facility] Blood Arterial blood specimen / Unknown 07/10/2025 2:17 PM EDT 07/10/2025 2:19 PM EDT us Luanne Crawford MD LAB POINT OF CARE TEST DOCKED DEVICE UNSOLICITED RESULTS Final Result Performing Organization Address City/[facility]/ZIP Co de Phone Number [facility] [address] [place] [address] * XR Abdomen 1 View (07/10/2025 12:03 [...] of the abdomen. COMPARISON: None. FINDINGS: Limited [id number] abdominal radiograph for the purpose of locating tube position. The tip of the nasogastric tube is within the mid stomach. Procedure Note Bernabe Sen MD - 07/10/2025 CLINICAL INDICATION: feeding tube placement TECHNIQUE: Supine radiograph of the abdomen. COMPARISON: None. FINDINGS: Limited [id number] abdominal radiograph for the purpose of locatingtube [...] for testing. Comment 07/10/2025 12:02 PM EDT [facility] Die Drawing Checker ID Segovia, Symleandraa F 025 12:02 PM EDT [facility] Device ID [id number] 07/10/2025 12:02 PM EDT [facility] Specimen Type POC Arterial 07/10/2025 12:02 PM EDT [facility] Blood Arterial blood specimen / Unknown 07/10/2025 12:00 PM EDT 07/10/2025 12:02 PM EDT us Luanne Crawford MD LAB POINT OF CARE TEST DOCKED DEVICE UNSOLICITED RESULTS Final Result Performing Organization Address [facility] Co de Phone Number [facility] [address] [place] [address] * (ABNORMAL) POCT glucose meter (07/10/2025 9:50 [...] Comment 07/10/2025 9:52 AM EDT [facility] Die Drawing Checker ID Segovia, Symantha F 025 9:52 AM EDT [facility] Device ID [id number] 07/10/2025 9:52 AM EDT [facility] Specimen Type POC Arterial 07/10/2025 9:52 AM EDT [facility] Blood Arterial blood specimen / Unknown 07/10/2025 9:50 AM EDT 07/10/2025 9:52 AM EDT us Luanne Crawford MD LAB POINT OF CARE TEST DOCKED DEVICE UNSOLICITED RESULTS Final Result Performing Organization Address City/[facility]/ZIP Co de Phone Number [facility] [address] [place] [address] * ECG Adult (07/10/2025 8:42 AM EDT) EKG DIAGNOSIS CLASS Abnormal MUSE ECG Ventricular Rate 79 BPM MUSE ECG Atrial Rate 79 BPM MUSE ECG ID Interval 188 ms MUSE ECG QRSD Interval 90 ms MUSE ECG QT Interval 354 ms MUSE ECG QTC Interval 405 ms MUSE ECG P [place] 44 degrees MUSE ECG R [place] 17 degrees MUSE ECG T Wave [place] 27 degrees MUSE ECG Diagnosis Sinus rhythm with frequent premature ventricular complexes MUSE ECG Diagnosis Low voltage QRS MUSE ECG Diagnosis Cannot rule out Anterior infarct , age undetermined MUSE ECG Diagnosis MUSE ECG Diagnosis MUSE ECG Diagnosis Confirmed by Octavio Walsh ([id number]) on 07/10/2025 11:49:20 AM MUSE ECG 07/10/2025 8:42 AM EDT 07/10/2025 11:49 AM EDT us Luanne Crawford MD ECG ORDERABLES Final Resu lt MUSE ECG * ID CRITICAL CARE, E/M 30-74 MINUTES (07/10/2025 8:15 [...] POCT glucose meter (07/10/2025 8:04 AM EDT) POCT Glucose 163(H) 74 - 99 mg/dL [...] for testing. Comment 07/10/2025 9:22 AM EDT [facility] Die Drawing Checker ID Segovia, Symleandraa F 025 9:22 AM EDT [facility] Device ID [id number] 07/10/2025 9:22 AM EDT [facility] Specimen Type POC Arterial 07/10/2025 9:22 AM EDT [facility] Blood Arterial blood specimen / Unknown 07/10/2025 8:04 AM EDT 07/10/2025 9:22 AM EDT us Luanne Crawford MD LAB POINT OF CARE TEST DOCKED DEVICE UNSOLICITED RESULTS Final Result Performing Organization Address City/State/[facility] Co de Phone Number [facility] [address] [place] [address] * (ABNORMAL) POCT glucose meter (07/10/2025 6:04 AM EDT) POCT Glucose 187(H) 74 - 99 mg/dL [...] Comment 07/10/2025 6:05 AM EDT [facility] Die Drawing Checker ID Cheyanne Briceño 07/10/2025 6:05 AM EDT [facility] Device ID [id number] 07/10/2025 6:05 AM EDT [facility] Specimen Type POC Arterial 07/10/2025 6:05 AM EDT [facility] Blood Arterial blood specimen / Unknown 07/10/2025 6:04 AM EDT 07/10/2025 6:05 AM EDT Luanne Crawford MD LAB POINT OF CARE TEST DOCKED DEVICE UNSOLICITED RESULTS Final Result Performing Organization Address [facility] Co de Phone Number [facility] [address] [place] [address] * (ABNORMAL) POCT glucose meter (07/10/2025 3:59 [...] Comment 07/10/2025 4:01 AM EDT [facility] Die Drawing Checker ID Cheyanne Briceño 07/10/2025 4:01 AM EDT [facility] Device ID [id number] 07/10/2025 4:01 AM EDT HEALTHCARE LAB Specimen Type POC Arterial 07/10/2025 4:01 AM EDT HEALTHCARE LAB Blood Arterial blood specimen / Unknown 07/10/2025 3:59 AM EDT 07/10/2025 4:01 AM EDT Luanne Crawford MD LAB POINT OF CARE TEST DOCKED DEVICE UNSOLICITED RESULTS Final Result Performing Organization Address [facility]/ZIP Co de Phone Number [facility]ALTHCARE [facility] [address] [place] [address] * (ABNORMAL) POCT glucose meter (07/10/2025 3:01 AM EDT) [facility] POCT Glucose 165(H) 74 - 99 mg/dL 07/10/2025 3:03 AM EDT HEALTHCARE LAB Comment:Accuracy of a [...] Comment 07/10/2025 3:03 AM EDT HEALTHCARE LAB Die Drawing Checker ID Cheyanne Briceño 07/10/2025 3:03 AM EDT HEALTHCARE LAB Device ID [id number] 07/10/2025 3:03 AM EDT HEALTHCARE LAB Specimen Type POC Arterial 07/10/2025 3:03 AM EDT [facility] Blood Arterial blood specimen / Unknown 07/10/2025 3:01 AM EDT 07/10/2025 3:03 AM EDT us Luanne Crawford MD LAB POINT OF CARE TEST DOCKED DEVICE UNSOLICITED RESULTS Final Result Performing Organization Address City/State/[facility] Co de Phone Number HEALTHCARE LAB [address] [place] [address] * (ABNORMAL) POCT glucose meter (07/10/2025 2:03 AM EDT) [facility] POCT Glucose 180(H) 74 - 99 mg/dL [...] Comment 07/10/2025 2:04 AM EDT [facility]ALTHCARE LAB Die Drawing Checker ID Cheyanne Briceño 07/10/2025 2:04 AM EDT [facility]ALTH[facility]ARE LAB Device ID [id number] 07/10/2025 2:04 AM EDT [facility]ALTH[facility]ARE LAB Specimen Type POC Arterial 07/10/2025 2:04 AM EDT [facility] Blood Arterial blood specimen / Unknown 07/10/2025 2:03 AM EDT 07/10/2025 2:04 AM EDT Luanne Crawford MD LAB POINT OF CARE TEST DOCKED DEVICE UNSOLICITED RESULTS Final Result Performing Organization Address City/[facility]/ZIP Co de Phone Number [facility] [address] [place] [address] * (ABNORMAL) POCT glucose meter (07/10/2025 12:59 AM EDT) POCT Glucose 158(H) 74 - 99 mg/dL 07/10/2025 1:00 AM EDT [facility] Comment:Accuracy of a glucos e result [...] for testing. Comment 07/10/2025 1:00 AM EDT [facility] Die Drawing Checker ID Cheyanne Briceño 07/10/2025 1:00 AM EDT [facility] Device ID [id number] 07/10/2025 1:00 AM EDT [facility] Specimen Type POC Arterial 07/10/2025 1:00 AM EDT [facility] Blood Arterial blood specimen / Unknown 07/10/2025 12:59 AM EDT 07/10/2025 1:00 AM EDT Luanne Crawford MD LAB POINT OF CARE TEST DOCKED DEVICE UNSOLICITED RESULTS Final Result [facility] [address] [place] [address] * Phosphorus (07/10/2025 12:03 AM EDT) Phosphorus, Plasma 4.2 2.5 - 4.5 mg/dL 07/10/2025 12:40 AM EDT [facility] Blood Arterial blood specimen / Unknown Venipuncture / Unknown 07/10/2025 12:03 AM EDT 07/10/2025 12:10 AM EDT us Luanne Crawford MD LAB BLOOD ORDERABLES Final Result [facility] [address] [place] [address] * Magnesium, Plasma (07/10/2025 12:03 AM EDT) Magnesium, Plasma 2.1 1.9 - 2.4 mg/dL 07/10/2025 12:40 AM EDT [facility] Blood Arterial blood specimen / Unknown Venipuncture / Unknown 07/10/2025 12:03 AM EDT 07/10/2025 12:10 AM EDT us Luanne Crawford MD LAB BLOOD ORDERABLES Final Result Performing Organization Address [facility]/ZIP Co de Phone Number [facility] [address] [place] [address] * (ABNORMAL) Basic Metabolic Panel, Plasma (07/10/2025 12:03 AM EDT) Glucose, Plasma 155(H) 74 - 99 mg/dL 07/10/2025 12:40 AM EDT [facility] BUN, Plasma 22(H) 7 - 21 mg/dL 07/10/2025 12:40 AM EDT [facility] Creatinine, Plasma 1.25(H) 0.60 - 1.10 mg/dL 07/10/2025 12:40 AM EDT [facility] BUN/Creatinine Ratio 18 07/10/2025 12:40 AM EDT [facility] Sodium, Plasma 134(L) 136 - 145 mmol/L 07/10/2025 12:40 AM EDT [facility] Potassium, Plasma 3.7 3.6 - 4.9 mmol/L 07/10/2025 12:40 AM EDT [facility] Chloride, Plasma 101 97 - 107 mmol/L 07/10/2025 12:40 AM EDT [facility] CO2, Plasma 25 22 - 29 mmol/L 07/10/2025 12:40 AM EDT [facility] Anion Gap 8 6 - 16 mmol/L 07/10/2025 12:40 AM EDT [facility] Total Calcium, Plasma 9.3 8.9 - 10.2 mg/dL 07/10/2025 12:40 AM EDT [facility] eGFRcr 52.9 mL/min/1.7 3m*2 07/10/2025 12:40 AM EDT [facility] Comment:Reported eGFRcr in m L/min/1.73m2 is based the CKD-EPI 2020 equation that does not use a race coefficient. Blood Arterial blood specimen / Unknown Venipuncture / Unknown 07/10/2025 12:03 AM EDT 07/10/2025 12:10 AM EDT us Luanne Crawford MD LAB BLOOD ORDERABLES Final Result [facility] [address] [place] [address] * (ABNORMAL) CBC W/O Differential (07/10/2025 12:03 AM EDT) WBC Count 17.64(H) 3.70 - 10.30 10*3/uL LAB HEMATOLOGY METHOD 07/10/2025 12:22 AM EDT [facility] RBC Count 3.83(L) 3.90 - 5.20 10*6/uL LAB HEMATOLOGY METHOD 07/10/2025 12:22 AM EDT [facility] HGB 10.6(L) 11.2 - 15.7 g/dL LAB HEMATOLOGY METHOD 07/10/2025 12:22 AM EDT [facility] HCT 33.3(L) 34.0 - 45.0 % LAB HEMATOLOGY METHOD 07/10/2025 12:22 AM EDT [facility] Platelet Count 309 155 - 369 10*3/uL LAB HEMATOLOGY METHOD 07/10/2025 12:22 AM EDT [facility] MCV 87 79 - 98 fL LAB HEMATOLOGY METHOD 07/10/2025 12:22 AM EDT [facility] MCH 27.7 26.0 - 32.0 pg LAB HEMATOLOGY METHOD 07/10/2025 12:22 AM EDT [facility] MCHC 31.8 30.7 - 35.5 g/dL LAB HEMATOLOGY METHOD 07/10/2025 12:22 AM EDT [facility] RDW 17.9(H) 11.5 - 14.5 % LAB HEMATOLOGY METHOD 07/10/2025 12:22 AM EDT [facility] MPV 10.3 8.8 - 12.5 fL LAB HEMATOLOGY METHOD 07/10/2025 12:22 AM EDT [facility] nRBC 0.0 <=0.0 per 100 WBCs LAB HEMATOLOGY METHOD 07/10/2025 12:22 AM EDT [facility] Blood Arterial blood specimen / Unknown Venipuncture / Unknown 07/10/2025 12:03 AM EDT 07/10/2025 12:11 AM EDT us Luanne Crawford MD LAB BLOOD ORDERABLES Final Result [facility] [address] [place] [address] * (ABNORMAL) POCT glucose meter (07/10/2025 12:02 [...] Comment 07/10/2025 12:04 AM EDT [facility] Die Drawing Checker ID Cheyanne Briceño 07/10/2025 12:04 AM EDT [facility] LAB Device ID [id number] 07/10/2025 12:04 AM EDT [facility] Specimen Type POC Arterial 07/10/2025 12:04 AM EDT [facility] Blood Arterial blood specimen / Unknown 07/10/2025 12:02 AM EDT 07/10/2025 12:04 AM EDT us Luanne Crawford MD LAB POINT OF CARE TEST DOCKED DEVICE UNSOLICITED RESULTS Final Result Performing Organization Address City/[facility]/ZIP Co de Phone Number [facility] [address] [place] [address] * (ABNORMAL) POCT glucose meter (07/09/2025 10:01 PM EDT) [facility] POCT Glucose 183(H) 74 - 99 mg/dL [...] Comment 07/09/2025 10:04 PM EDT [facility]ALTH[facility]ARE LAB Die Drawing Checker ID Cheyanne Briceño 07/09/2025 10:04 PM EDT [facility] Device ID [id number] 07/09/2025 10:04 PM EDT [facility] Specimen Type POC Arterial 07/09/2025 10:04 PM EDT [facility] Blood Arterial blood specimen / Unknown 07/09/2025 10:01 PM EDT 07/09/2025 10:04 PM EDT Luanne Crawford MD LAB POINT OF CARE TEST DOCKED DEVICE UNSOLICITED RESULTS Final Result Performing Organization Address City/[facility] Co de Phone Number [facility] [address] [place] [address] * (ABNORMAL) POCT glucose meter (07/09/2025 8:09 PM EDT) [facility] POCT Glucose 188(H) 74 - 99 mg/dL [...] for testing. Comment 07/09/2025 8:11 PM EDT [facility]ALTH[facility]ARE LAB Die Drawing Checker ID Cheyanne Briceño 07/09/2025 8:11 PM EDT HEALTH[facility]ARE LAB Device ID [id number] 07/09/2025 8:11 PM EDT [facility] Specimen Type POC Capillary 07/09/2025 8:11 PM EDT [facility] Blood Capillary blood specimen / Unknown 07/09/2025 8:09 PM EDT 07/09/2025 8:11 PM EDT Luanne Crawford MD LAB POINT OF CARE TEST DOCKED DEVICE UNSOLICITED RESULTS Final Result Performing Organization Address City/[facility] Co de Phone Number [facility]ALTH[facility]ARE LAB [address] [place] [address] * (ABNORMAL) [facility] (07/09/2025 6:22 PM EDT[facility] 74 - 99 mg/dL 07/09/2025 6:24 PM EDT [facility] Comment:Accuracy of a [...] Comment 07/09/2025 6:24 PM EDT [facility]ARE LAB Die Drawing Checker ID Jeana Bear 07/09/2025 6:24 PM EDT HEALTH[facility]ARE LAB Device ID [id number] 07/09/2025 6:24 PM EDT [facility] Specimen Type POC Capillary 07/09/2025 6:24 PM EDT [facility] Blood Capillary blood specimen / Unknown 07/09/2025 6:22 PM EDT 07/09/2025 6:24 PM EDT Luanne Crawford MD LAB POINT OF CARE TEST DOCKED DEVICE UNSOLICITED RESULTS Final Result Performing Organization Address City/[facility]/ZIP Co de Phone Number [facility] [address] [place] [address] * (ABNORMAL) POCT glucose meter (07/09/2025 4:06 PM EDT) POCT Glucose 144(H) 74 - 99 mg/dL 07/09/2025 4:07 PM EDT [facility] Comment:Accuracy of a [...] Comment 07/09/2025 4:07 PM EDT [facility]ALTH[facility]ARE LAB Die Drawing Checker ID Jeana Bear 07/09/2025 4:07 PM EDT [facility] Device ID [id number] 07/09/2025 4:07 PM EDT [facility] Specimen Type POC Capillary 07/09/2025 4:07 PM EDT [facility] Blood Capillary blood specimen / Unknown 07/09/2025 4:06 PM EDT 07/09/2025 4:07 PM EDT us Luanne Crawford MD LAB POINT OF CARE TEST DOCKED DEVICE UNSOLICITED RESULTS Final Result [facility] [address] [place] [address] * (ABNORMAL) Blood gas, arterial (07/09/2025 3:16 PM EDT) [facility] pH, Arterial 7.31(L) 7.35 - 7.45 LAB HEMATOLOGY METHOD 07/09/2025 3:40 PM EDT [facility] pCO2, Arterial 53(H) 35 - 48 mmHg LAB HEMATOLOGY METHOD 07/09/2025 3:40 PM EDT [facility] pO2, Arterial 153(H) 83 - 108 mmHg LAB HEMATOLOGY METHOD 07/09/2025 3:40 PM EDT [facility] SO2, Measured, Arterial 100(H) 94 - 98 % LAB HEMATOLOGY METHOD 07/09/2025 3:40 PM EDT [facility] Base Excess, Arterial -0.4 -2.0 - 3.0 mmol/L LAB HEMATOLOGY METHOD 07/09/2025 3:40 PM EDT [facility] Bicarbonate, Calculated, Arterial 26 22 - 26 mmol/L LAB HEMATOLOGY METHOD 07/09/2025 3:40 PM EDT [facility] Hematocrit, Whole Blood 30.6(L) 34.0 - 45.0 % LAB HEMATOLOGY METHOD 07/09/2025 3:40 PM EDT [facility] Sodium, Whole Blood 141 136 - 145 mmol/L LAB HEMATOLOGY METHOD 07/09/2025 3:40 PM EDT [facility] Potassium, Whole Blood 3.4(L) 3.6 - 4.9 mmol/L LAB HEMATOLOGY METHOD 07/09/2025 3:40 PM EDT [facility] Chloride, Whole Blood 107 97 - 107 mmol/L LAB HEMATOLOGY METHOD 07/09/2025 3:40 PM EDT [facility] Glucose, Whole Blood 141(H) 74 - 99 mg/dL LAB HEMATOLOGY METHOD 07/09/2025 3:40 PM EDT [facility] Ionized Calcium, Whole Blood 4.9 4.6 - 5.1 mg/dL LAB HEMATOLOGY METHOD 07/09/2025 3:40 PM EDT [facility] Lactate, Arterial, Whole Blood 0.9 0.5 - 1.6 mmol/L LAB HEMATOLOGY METHOD 07/09/2025 3:40 PM EDT [facility] Blood Arterial blood specimen / Unknown Arterial Line / Unknown 07/09/2025 3:16 PM EDT 07/09/2025 3:38 PM EDT us Luanne Crawford MD LAB BLOOD ORDERABLES Final Result [facility] [address] [place] [address] * (ABNORMAL) POCT glucose meter (07/09/2025 3:01 [...] Comment 07/09/2025 3:03 PM EDT HEALTHCARE LAB Die Drawing Checker ID Jeana Bear 07/09/2025 3:03 PM EDT [facility] Device ID [id number] 07/09/2025 3:03 PM EDT HEALTH[facility]ARE LAB Specimen Type POC Capillary 07/09/2025 3:03 PM EDT [facility] Blood Capillary blood specimen / Unknown 07/09/2025 3:01 PM EDT 07/09/2025 3:03 PM EDT us Luanne Crawford MD LAB POINT OF CARE TEST DOCKED DEVICE UNSOLICITED RESULTS Final Result Performing Organization Address City/[facility] Co de Phone Number [facility]ALTH[facility]ARE LAB [address] [place] [address] * (ABNORMAL) POCT glucose meter (07/09/2025 1:57 PM EDT) POCT Glucose 115(H) 74 - [...] Comment 07/09/2025 1:59 PM EDT [facility]ALTH[facility]ARE [facility] Die Drawing Checker ID Jeana Bear 07/09/2025 1:59 PM EDT HEALTH[facility]ARE LAB Device ID [id number] 07/09/2025 1:59 PM EDT [facility] Specimen Type POC Capillary 07/09/2025 1:59 PM EDT [facility] Blood Capillary blood specimen / Unknown 07/09/2025 1:57 PM EDT 07/09/2025 1:59 PM EDT us Luanne Crawford MD LAB POINT OF CARE TEST DOCKED DEVICE UNSOLICITED RESULTS Final Result Performing Organization Address City/[facility]/ZIP Co de Phone Number [facility] [address] [place] [address] * Phosphorus (07/09/2025 1:21 PM EDT) Phosphorus, Plasma 4.2 2.5 - 4.5 mg/dL 07/09/2025 2:49 PM EDT [facility] Blood Arterial blood specimen / Unknown Arterial Line / Unknown 07/09/2025 1:21 PM EDT 07/09/2025 2:01 PM EDT Luanne Crawford MD LAB BLOOD ORDERABLES Final Result Performing Organization Address [facility]/ZIP Co de Phone Number [facility] [address] [place] [address] * Magnesium (07/09/2025 1:21 PM EDT) Magnesium, Plasma 2.3 1.9 - 2.4 mg/dL 07/09/2025 2:49 PM EDT [facility] Blood Arterial blood specimen / Unknown Arterial Line / Unknown 07/09/2025 1:21 PM EDT 07/09/2025 2:01 PM EDT Luanne Crawford MD LAB BLOOD ORDERABLES Final Result Performing Organization Address [facility] Co de Phone Number [facility] [address] [place] [address] * (ABNORMAL) Basic metabolic panel (07/09/2025 1:21 PM EDT) Glucose, Plasma 100(H) 74 - 99 mg/dL 07/09/2025 2:49 PM EDT [facility] BUN, Plasma 26(H) 7 - 21 mg/dL 07/09/2025 2:49 PM EDT [facility] Creatinine, Plasma 1.42(H) 0.60 - 1.10 mg/dL 07/09/2025 2:49 PM EDT [facility] BUN/Creatinine Ratio 18 07/09/2025 2:49 PM EDT [facility] Sodium, Plasma 140 136 - 145 mmol/L 07/09/2025 2:49 PM EDT [facility] Potassium, Plasma 3.7 3.6 - 4.9 mmol/L 07/09/2025 2:49 PM EDT [facility] Chloride, Plasma 104 97 - 107 mmol/L 07/09/2025 2:49 PM EDT [facility] CO2, Plasma 24 22 - 29 mmol/L 07/09/2025 2:49 PM EDT [facility] Anion Gap 12 6 - 16 mmol/L 07/09/2025 2:49 PM EDT [facility] Total Calcium, Plasma 9.1 8.9 - 10.2 mg/dL 07/09/2025 2:49 PM EDT [facility] eGFRcr 45.4 mL/min/1.7 3m*2 07/09/2025 2:49 PM EDT [facility] Comment:Reported eGFRcr in m L/min/1.73m2 is based the CKD-EPI 2020 equation that does not use a race coefficient. Blood Arterial blood specimen / Unknown Arterial Line / Unknown 07/09/2025 1:21 PM EDT 07/09/2025 2:01 PM EDT us Luanne Crawford MD LAB BLOOD ORDERABLES Final Result [facility] [address] [place] [address] * (ABNORMAL) POCT glucose meter (07/09/2025 1:20 PM EDT) Pathologist [facility] POCT Glucose 103(H) 74 - 99 [...] 07/09/2025 1:22 PM EDT [facility] Die Drawing Checker ID Jeana Bear 07/09/2025 1:22 PM EDT [facility] Device ID [id number] 07/09/2025 1:22 PM EDT [facility] Specimen Type POC Arterial 07/09/2025 1:22 PM EDT [facility] Blood Arterial blood specimen / Unknown 07/09/2025 1:20 PM EDT 07/09/2025 1:22 PM EDT Luanne Crawford MD LAB POINT OF CARE TEST DOCKED DEVICE UNSOLICITED RESULTS Final Result Performing Organization Address [facility] Co de Phone Number [facility]ALTH[facility]ARE LAB [address] [place] [address] * (ABNORMAL) POCT glucose meter (07/09/2025 12:44 PM EDT) [facility] POCT Glucose 110(H) 74 - 99 mg/dL [...] Comment 07/09/2025 12:45 PM EDT [facility]ALTH[facility]ARE LAB Die Drawing Checker ID Jeana Bear 07/09/2025 12:45 PM EDT HEALTHCARE LAB Device ID [id number] 07/09/2025 12:45 PM EDT [facility] Specimen Type POC Capillary 07/09/2025 12:45 PM EDT [facility] Blood Capillary blood specimen / Unknown 07/09/2025 12:44 PM EDT 07/09/2025 12:45 PM EDT Luanne Crawford MD LAB POINT OF CARE TEST DOCKED DEVICE UNSOLICITED RESULTS Final Result Performing Organization Address City/[facility]/ZIP Co de Phone Number [facility] [address] [place] [address] * (ABNORMAL) POCT glucose meter (07/09/2025 12:19 PM EDT) [facility] POCT Glucose 62(L) 74 - 99 mg/dL [...] Comment 07/09/2025 12:21 PM EDT [facility]ALTHCARE LAB Die Drawing Checker ID Jeana Bear 07/09/2025 12:21 PM EDT HEALTHCARE LAB Device ID [id number] 07/09/2025 12:21 PM EDT [facility]ALTH[facility] Specimen Type POC Capillary 07/09/2025 12:21 PM EDT [facility] Blood Capillary blood specimen / Unknown 07/09/2025 12:19 PM EDT 07/09/2025 12:21 PM EDT us Luanne Crawford MD LAB POINT OF CARE TEST DOCKED DEVICE UNSOLICITED RESULTS Final Result Performing Organization Address City/[facility] Co de Phone Number [facility] [address] [place] [address] * Blood Culture (Aerobic/Anaerobet Set) (07/09/2025 10:35 AM EDT) Culture No growth at day 5 KAROLINA 07/14/2025 12:02 PM EDT [facility] Blood Structure of antecubital vein / Unknown Venipuncture / Unknown 07/09/2025 10:35 AM EDT 07/09/2025 10:50 AM EDT us My Charles MD LAB MICROBIOLOGY - GENE RAL ORDERABLES Final Result [facility] [address] [place] [address] * Blood Culture (Aerobic/Anaerobet Set) (07/09/2025 10:35 AM EDT) Culture No growth at day 5 KAROLINA 07/14/2025 12:02 PM EDT [facility] Blood Structure of antecubital vein / Unknown Venipuncture / Unknown 07/09/2025 10:35 AM EDT 07/09/2025 10:50 AM EDT us My Charles MD LAB MICROBIOLOGY - GENE RAL ORDERABLES Final Result [facility] [address] [place] [address] * (ABNORMAL) POCT glucose meter (07/09/2025 10:04 AM EDT) Pathologist [facility] POCT Glucose 114(H) 74 - 99 mg/dL [...] for testing. Comment 07/09/2025 10:05 AM EDT [facility] Die Drawing Checker ID Jeana Bear 07/09/2025 10:05 AM EDT [facility] Device ID [id number] 07/09/2025 10:05 AM EDT [facility] Specimen Type POC Capillary 07/09/2025 10:05 AM EDT [facility] Blood Capillary blood specimen / Unknown 07/09/2025 10:04 AM EDT 07/09/2025 10:05 AM EDT us Luanne Crawford MD LAB POINT OF CARE TEST DOCKED DEVICE UNSOLICITED RESULTS Final Result Performing Organization Address City/[facility]/ZIP Co de Phone Number [facility] [address] [place] [address] * Multi Drug Resistance Test (07/09/2025 9:46 AM EDT) [facility] Culture No growth at day 1 07/10/2025 11:58 AM EDT [facility] Swab (Nares and Leann Rectal) Non-blood Collection / Unknown 07/09/2025 9:46 AM EDT 07/09/2025 10:09 AM EDT Narrative [facility] - 07/10/2025 11:58 AM EDT This test was developed and its performance characteristics determined by the [facility]. Although the media is FDA-approved, it is not FDA-approved for all specimen types submitted. The FDA has determined that such clearance or approval is not necessary. This test is used for surveillance purposes. It should not be regarded as investigational or for research. The [facility] is certified under the Clinical Laboratory Improvement Amendments of 1988 (CLIA-88) as qualified to perform high complexity clinical laboratory testing. us Luanne Crawford MD LAB MICROBIOLOGY - GENERAL ORDERABLES Final Result [facility] [address] [place] [address] * (ABNORMAL) Blood gas, arterial (07/09/2025 8:47 AM EDT) pH, Arterial 7.30(L) 7.35 - 7.45 LAB HEMATOLOGY METHOD 07/09/2025 8:55 AM EDT [facility] pCO2, Arterial 53(H) 35 - 48 mmHg LAB HEMATOLOGY METHOD 07/09/2025 8:55 AM EDT [facility] pO2, Arterial 173(H) 83 - 108 mmHg LAB HEMATOLOGY METHOD 07/09/2025 8:55 AM EDT [facility] SO2, Measured, Arterial 98 94 - 98 % LAB HEMATOLOGY METHOD 07/09/2025 8:55 AM EDT [facility] Base Excess, Arterial -0.8 -2.0 - 3.0 mmol/L LAB HEMATOLOGY METHOD 07/09/2025 8:55 AM EDT [facility] Bicarbonate, Calculated, Arterial 26 22 - 26 mmol/L LAB HEMATOLOGY METHOD 07/09/2025 8:55 AM EDT [facility] Hematocrit, Whole Blood 27.3(L) 34.0 - 45.0 % LAB HEMATOLOGY METHOD 07/09/2025 8:55 AM EDT [facility] Sodium, Whole Blood 140 136 - 145 mmol/L LAB HEMATOLOGY METHOD 07/09/2025 8:55 AM EDT [facility] Potassium, Whole Blood 2.9(L) 3.6 - 4.9 mmol/L LAB HEMATOLOGY METHOD 07/09/2025 8:55 AM EDT [facility] Chloride, Whole Blood 106 97 - 107 mmol/L LAB HEMATOLOGY METHOD 07/09/2025 8:55 AM EDT [facility] Glucose, Whole Blood 155(H) 74 - 99 mg/dL LAB HEMATOLOGY METHOD 07/09/2025 8:55 AM EDT [facility] Ionized Calcium, Whole Blood 5.0 4.6 - 5.1 mg/dL LAB HEMATOLOGY METHOD 07/09/2025 8:55 AM EDT [facility] Lactate, Arterial, Whole Blood 1.4 0.5 - 1.6 mmol/L LAB HEMATOLOGY METHOD 07/09/2025 8:55 AM EDT [facility] Blood Arterial blood specimen / Unknown Arterial Line / Unknown 07/09/2025 8:47 AM EDT 07/09/2025 8:54 AM EDT us Dorcas Hennessy MD LAB BLOOD ORDERABLES Final Resul t [facility] [address] [place] [address] * (ABNORMAL) POCT glucose meter (07/09/2025 8:01 AM EDT) [facility] Signature POCT Glucose 200(H) 74 - 99 mg/dL [...] Comment 07/09/2025 8:03 AM EDT [facility]ALTHCARE LAB Die Drawing Checker ID Jeana Bear 07/09/2025 8:03 AM EDT [facility]ALTHCARE LAB Device ID [id number] 07/09/2025 8:03 AM EDT [facility]ALTH[facility]ARE LAB Specimen Type POC Capillary 07/09/2025 8:03 AM EDT [facility] Blood Capillary blood specimen / Unknown 07/09/2025 8:01 AM EDT 07/09/2025 8:03 AM EDT us Luanne Crawford MD LAB POINT OF CARE TEST DOCKED DEVICE UNSOLICITED RESULTS Final Result [facility] [address] [place] [address] * ID CRITICAL CARE, E/M 30-74 MINUTES (07/09/2025 7:15 [...] - 99 mg/dL 07/09/2025 6:20 AM EDT [facility] Comment:Accuracy of a glucos e result [...] for testing. Comment 07/09/2025 6:20 AM EDT [facility] Die Drawing Checker ID Cheyanne Briceño 07/09/2025 6:20 AM EDT [facility] Device ID [id number] 07/09/2025 6:20 AM EDT [facility] Specimen Type POC Arterial 07/09/2025 6:20 AM EDT [facility] Blood Arterial blood specimen / Unknown 07/09/2025 6:05 AM EDT 07/09/2025 6:20 AM EDT Luanne Crawford MD LAB POINT OF CARE TEST DOCKED DEVICE UNSOLICITED RESULTS Final Result Performing Organization Address [facility] de Phone Number [facility] [address] [place] [address] * (ABNORMAL) Hemoglobin A1c (07/09/2025 4:57 AM EDT) Hemoglobin A1c 7.5(H) <5.7 % 07/09/2025 12:09 PM EDT [facility] Blood Arterial blood specimen / Unknown Venipuncture / Unknown 07/09/2025 4:57 AM EDT 07/09/2025 5:07 AM EDT Narrative [facility] - 07/09/2025 12:09 PM EDT [facility] Interpretive Data: Diagnosis of Diabetes: Diabetic > or = 6.5% Pre-diabetic 5.7 to 6.4% Non-diabetic < or = 5.6% Glycemic Targets for Type I and Type II Diabetics: Non- Adults <7.0% Adults <6.0% Children and Adolescents <7.5% Source: [employer]. Standards of medical care in diabetes,2017. Diabetes Care.2017:40 (suppl 1):S1-S135. Dorcas Hennessy MD LAB BLOOD ORDERABLES Final Resul t [facility] [address] [place] [address] * Phosphorus (07/09/2025 4:57 AM EDT) Phosphorus, Plasma 4.1 2.5 - 4.5 mg/dL 07/09/2025 5:35 AM EDT [facility] Blood Arterial blood specimen / Unknown Venipuncture / Unknown 07/09/2025 4:57 AM EDT 07/09/2025 5:06 AM EDT us Luanne Crawford MD LAB BLOOD ORDERABLES Final Result [facility] [address] [place] [address] * Magnesium, Plasma (07/09/2025 4:57 AM EDT) Pathologist [facility] Magnesium, Plasma 2.2 1.9 - 2.4 mg/dL 07/09/2025 5:35 AM EDT [facility] Blood Arterial blood specimen / Unknown Venipuncture / Unknown 07/09/2025 4:57 AM EDT 07/09/2025 5:06 AM EDT Luanne Crawford MD LAB BLOOD ORDERABLES Final Result Performing Organization Address [facility]/ZIP Co de Phone Number [facility] [address] [place] [address] * (ABNORMAL) Basic Metabolic Panel, Plasma (07/09/2025 4:57 AM EDT) Glucose, Plasma 235(H) 74 - 99 mg/dL 07/09/2025 5:35 AM EDT [facility] BUN, Plasma 30(H) 7 - 21 mg/dL 07/09/2025 5:35 AM EDT [facility] Creatinine, Plasma 1.58(H) 0.60 - 1.10 mg/dL 07/09/2025 5:35 AM EDT [facility] BUN/Creatinine Ratio 19 07/09/2025 5:35 AM EDT [facility] Sodium, Plasma 136 136 - 145 mmol/L 07/09/2025 5:35 AM EDT [facility] Potassium, Plasma 3.5(L) 3.6 - 4.9 mmol/L 07/09/2025 5:35 AM EDT [facility] Chloride, Plasma 101 97 - 107 mmol/L 07/09/2025 5:35 AM EDT [facility] CO2, Plasma 23 22 - 29 mmol/L 07/09/2025 5:35 AM EDT [facility] Anion Gap 12 6 - 16 mmol/L 07/09/2025 5:35 AM EDT [facility] Total Calcium, Plasma 9.2 8.9 - 10.2 mg/dL 07/09/2025 5:35 AM EDT [facility] eGFRcr 40.0 mL/min/1.7 3m*2 07/09/2025 5:35 AM EDT [facility] Comment:Reported eGFRcr in m L/min/1.73m2 is based the CKD-EPI 2020 equation that does not use a race coefficient. Blood Arterial blood specimen / Unknown Venipuncture / Unknown 07/09/2025 4:57 AM EDT 07/09/2025 5:06 AM EDT us Luanne Crawford MD LAB BLOOD ORDERABLES Final Result [facility] [address] [place] [address] * (ABNORMAL) CBC W/O Differential (07/09/2025 4:57 AM EDT) WBC Count 32.25(H) 3.70 - 10.30 10*3/uL LAB HEMATOLOGY METHOD 07/09/2025 5:15 AM EDT [facility] RBC Count 3.89(L) 3.90 - 5.20 10*6/uL LAB HEMATOLOGY METHOD 07/09/2025 5:15 AM EDT [facility] HGB 11.0(L) 11.2 - 15.7 g/dL LAB HEMATOLOGY METHOD 07/09/2025 5:15 AM EDT [facility] HCT 33.4(L) 34.0 - 45.0 % LAB HEMATOLOGY METHOD 07/09/2025 5:15 AM EDT [facility] Platelet Count 358 155 - 369 10*3/uL LAB HEMATOLOGY METHOD 07/09/2025 5:15 AM EDT [facility] MCV 86 79 - 98 fL LAB HEMATOLOGY METHOD 07/09/2025 5:15 AM EDT [facility] MCH 28.3 26.0 - 32.0 pg LAB HEMATOLOGY METHOD 07/09/2025 5:15 AM EDT [facility] MCHC 32.9 30.7 - 35.5 g/dL LAB HEMATOLOGY METHOD 07/09/2025 5:15 AM EDT [facility] RDW 17.4(H) 11.5 - 14.5 % LAB HEMATOLOGY METHOD 07/09/2025 5:15 AM EDT [facility] MPV 10.0 8.8 - 12.5 fL LAB HEMATOLOGY METHOD 07/09/2025 5:15 AM EDT [facility] nRBC 0.0 <=0.0 per 100 WBCs LAB HEMATOLOGY METHOD 07/09/2025 5:15 AM EDT [facility] Blood Arterial blood specimen / Unknown Venipuncture / Unknown 07/09/2025 4:57 AM EDT 07/09/2025 5:07 AM EDT us Luanne Crawford MD LAB BLOOD ORDERABLES Final Result Performing Organization Address [facility] Co de Phone Number [facility] [address] [place] [id number] * (ABNORMAL) POCT glucose meter (07/09/2025 4:03 AM EDT) [facility] POCT Glucose 232(H) 74 - 99 mg/dL [...] Comment 07/09/2025 4:05 AM EDT [facility] Die Drawing Checker ID Cheyanne Briceño 07/09/2025 4:05 AM EDT [facility] Device ID [id number] 07/09/2025 4:05 AM EDT [facility] Specimen Type POC Arterial 07/09/2025 4:05 AM EDT [facility] Blood Arterial blood specimen / Unknown 07/09/2025 4:03 AM EDT 07/09/2025 4:05 AM EDT us Luanne Crawford MD LAB POINT OF CARE TEST DOCKED DEVICE UNSOLICITED RESULTS Final Result Performing Organization Address [facility]/ZIP Co de Phone Number [facility] [address] [place] [address] * XR Chest 1 View (07/09/2025 3:42 [...] POCT glucose meter (07/09/2025 2:15 AM EDT) Pathologist [facility] POCT Glucose 272(H) 74 - 99 mg/dL [...] Comment 07/09/2025 2:17 AM EDT [facility] Die Drawing Checker ID Cheyanne Briceño 07/09/2025 2:17 AM EDT [facility] Device ID [id number] 07/09/2025 2:17 AM EDT [facility] Specimen Type POC Arterial 07/09/2025 2:17 AM EDT [facility] Blood Arterial blood specimen / Unknown 07/09/2025 2:15 AM EDT 07/09/2025 2:17 AM EDT us Luanne Crawford MD LAB POINT OF CARE TEST DOCKED DEVICE UNSOLICITED RESULTS Final Result [facility] [address] [place] [address] * (ABNORMAL) Blood gas panel, arterial (07/09/2025 2:11 AM EDT) Pathologist [facility] pH, Arterial 7.25(LL) 7.35 - 7.45 LAB HEMATOLOGY METHOD 07/09/2025 2:23 AM EDT [facility] pCO2, Arterial 56(H) 35 - 48 mmHg LAB HEMATOLOGY METHOD 07/09/2025 2:23 AM EDT [facility] pO2, Arterial 67(L) 83 - 108 mmHg LAB HEMATOLOGY METHOD 07/09/2025 2:23 AM EDT [facility] SO2, Measured, Arterial 91(L) 94 - 98 % LAB HEMATOLOGY METHOD 07/09/2025 2:23 AM EDT [facility] Base Excess, Arterial -2.7(L) -2.0 - 3.0 mmol/L LAB HEMATOLOGY METHOD 07/09/2025 2:23 AM EDT [facility] Bicarbonate, Calculated, Arterial 25 22 - 26 mmol/L LAB HEMATOLOGY METHOD 07/09/2025 2:23 AM EDT [facility] Hematocrit, Whole Blood 31.5(L) 34.0 - 45.0 % LAB HEMATOLOGY METHOD 07/09/2025 2:23 AM EDT [facility] Sodium, Whole Blood 135(L) 136 - 145 mmol/L LAB HEMATOLOGY METHOD 07/09/2025 2:23 AM EDT [facility] Potassium, Whole Blood 3.5(L) 3.6 - 4.9 mmol/L LAB HEMATOLOGY METHOD 07/09/2025 2:23 AM EDT [facility] Chloride, Whole Blood 103 97 - 107 mmol/L LAB HEMATOLOGY METHOD 07/09/2025 2:23 AM EDT [facility] Glucose, Whole Blood 279(H) 74 - 99 mg/dL LAB HEMATOLOGY METHOD 07/09/2025 2:23 AM EDT [facility] Ionized Calcium, Whole Blood 4.9 4.6 - 5.1 mg/dL LAB HEMATOLOGY METHOD 07/09/2025 2:23 AM EDT [facility] Lactate, Arterial, Whole Blood 1.2 0.5 - 1.6 mmol/L LAB HEMATOLOGY METHOD 07/09/2025 2:23 AM EDT [facility] Blood Arterial blood specimen / Unknown Arterial Puncture / Unknown 07/09/2025 2:11 AM EDT 07/09/2025 2:21 AM EDT us Luanne Crawford MD LAB BLOOD ORDERABLES Final Result [facility] [address] [place] [address] * (ABNORMAL) POCT glucose meter (07/09/2025 1:22 AM EDT) POCT Glucose 271(H) 74 - 99 mg/dL 07/09/2025 1:24 AM EDT [facility] Comment:Accuracy of a glucos [...] 07/09/2025 1:24 AM EDT [facility] Die Drawing Checker ID Cheyanne Briceño 07/09/2025 1:24 AM EDT [facility] Device ID [id number] 07/09/2025 1:24 AM EDT [facility] Specimen Type POC Arterial 07/09/2025 1:24 AM EDT [facility] Blood Arterial blood specimen / Unknown 07/09/2025 1:22 AM EDT 07/09/2025 1:24 AM EDT Luanne Crawford MD LAB POINT OF CARE TEST DOCKED DEVICE UNSOLICITED RESULTS Final Result Performing Organization Address [facility] Co de Phone Number [facility] [address] [place] [address] * (ABNORMAL) POCT glucose meter (07/09/2025 12:06 [...] Comment 07/09/2025 12:08 AM EDT [facility] Die Drawing Checker ID Cheyanne Briceño 07/09/2025 12:08 AM EDT [facility] Device ID [id number] 07/09/2025 12:08 AM EDT [facility] Specimen Type POC Arterial 07/09/2025 12:08 AM EDT [facility] Blood Arterial blood specimen / Unknown 07/09/2025 12:06 AM EDT 07/09/2025 12:08 AM EDT us Luanne Crawford MD LAB POINT OF CARE TEST DOCKED DEVICE UNSOLICITED RESULTS Final Result Performing Organization Address [facility]/ZIP Co de Phone Number [facility] [address] [place] [address] * APTT (07/08/2025 11:53 PM EDT) aPTT 25 25 - 35 sec LAB COAGULATION METHOD 07/09/2025 12:32 AM EDT [facility] Blood Venous blood specimen / Unknown Venipuncture / Unknown 07/08/2025 11:53 PM EDT 07/08/2025 11:59 PM EDT Luanne Crawford MD LAB BLOOD ORDERABLES Final Result Performing Organization Address [facility] Co de Phone Number [facility] [address] [place] [address] * (ABNORMAL) Protime-INR (07/08/2025 11:53 PM EDT) Prothrombin Time 15.2(H) 12.0 - 14.3 sec LAB COAGULATION METHOD 07/09/2025 12:32 AM EDT [facility] INR 1.2(H) 0.9 - 1.1 LAB COAGULATION METHOD 07/09/2025 12:32 AM EDT [facility] Blood Venous blood specimen / Unknown Venipuncture / Unknown 07/08/2025 11:53 PM EDT 07/08/2025 11:59 PM EDT Narrative [facility] - 07/09/2025 12:32 AM EDT OPTIMAL INR RANGES FOR PATIENT ON ORAL ANTICOAGULANT THERAPY Prevention of venous thromboembolism INR 2.0 to 3.0 In patients with heart disease: Atrial fibrillation INR 2.0 to 3.0 Valvular heart disease INR 2.0 to 3.0 Tissue heart valves INR 2.0 to 3.0 Mechanical prosthetic valves INR 2.5 to 3.5 Prevention of recurrent AK INR 2.5 to 3.5 us Luanne Crawford MD LAB BLOOD ORDERABLES Final Result Performing Organization Address [facility] Co de Phone Number [facility] [address] [place] [address] * Phosphorus, Plasma (07/08/2025 11:52 PM EDT) Phosphorus, Plasma 3.6 2.5 - 4.5 mg/dL 07/09/2025 12:27 AM EDT [facility] Blood Venous blood specimen / Unknown Venipuncture / Unknown 07/08/2025 11:52 PM EDT 07/08/2025 11:59 PM EDT us Luanne Crawford MD LAB BLOOD ORDERABLES Final Result Performing Organization Address [facility]/ZIP Co de Phone Number [facility] [address] [place] [address] * (ABNORMAL) Magnesium, Plasma (07/08/2025 11:52 PM EDT) Magnesium, Plasma 1.8(L) 1.9 - 2.4 mg/dL 07/09/2025 12:27 AM EDT [facility] Blood Venous blood specimen / Unknown Venipuncture / Unknown 07/08/2025 11:52 PM EDT 07/08/2025 11:59 PM EDT Luanne Crawford MD LAB BLOOD ORDERABLES Final Result Performing Organization Address [facility]/ZIP Co de Phone Number [facility] [address] [place] [address] * (ABNORMAL) Basic Metabolic Panel, Plasma (07/08/2025 11:52 PM EDT) Glucose, Plasma 314(H) 74 - 99 mg/dL 07/09/2025 12:27 AM EDT [facility] BUN, Plasma 32(H) 7 - 21 mg/dL 07/09/2025 12:27 AM EDT [facility] Creatinine, Plasma 1.80(H) 0.60 - 1.10 mg/dL 07/09/2025 12:27 AM EDT [facility] BUN/Creatinine Ratio 18 07/09/2025 12:27 AM EDT [facility] Sodium, Plasma 136 136 - 145 mmol/L 07/09/2025 12:27 AM EDT [facility] Potassium, Plasma 3.6 3.6 - 4.9 mmol/L 07/09/2025 12:27 AM EDT [facility] Chloride, Plasma 100 97 - 107 mmol/L 07/09/2025 12:27 AM EDT [facility] CO2, Plasma 23 22 - 29 mmol/L 07/09/2025 12:27 AM EDT [facility] Anion Gap 13 6 - 16 mmol/L 07/09/2025 12:27 AM EDT [facility] Total Calcium, Plasma 8.9 8.9 - 10.2 mg/dL 07/09/2025 12:27 AM EDT [facility] eGFRcr 34.2 mL/min/1.7 3m*2 07/09/2025 12:27 AM EDT [facility] Comment:Reported eGFRcr in m L/min/1.73m2 is based the CKD-EPI 2020 equation that does not use a race coefficient. Blood Venous blood specimen / Unknown Venipuncture / Unknown 07/08/2025 11:52 PM EDT 07/08/2025 11:59 PM EDT us Luanne Crawford MD LAB BLOOD ORDERABLES Final Result [facility] [address] [place] [address] * (ABNORMAL) CBC W/O Differential (07/08/2025 11:52 PM EDT) WBC Count 22.50(H) 3.70 - 10.30 10*3/uL LAB HEMATOLOGY METHOD 07/09/2025 12:16 AM EDT [facility] RBC Count 3.60(L) 3.90 - 5.20 10*6/uL LAB HEMATOLOGY METHOD 07/09/2025 12:16 AM EDT [facility] HGB 10.0(L) 11.2 - 15.7 g/dL LAB HEMATOLOGY METHOD 07/09/2025 12:16 AM EDT [facility] HCT 30.8(L) 34.0 - 45.0 % LAB HEMATOLOGY METHOD 07/09/2025 12:16 AM EDT [facility] Platelet Count 273 155 - 369 10*3/uL LAB HEMATOLOGY METHOD 07/09/2025 12:16 AM EDT [facility] MCV 86 79 - 98 fL LAB HEMATOLOGY METHOD 07/09/2025 12:16 AM EDT [facility] MCH 27.8 26.0 - 32.0 pg LAB HEMATOLOGY METHOD 07/09/2025 12:16 AM EDT [facility] MCHC 32.5 30.7 - 35.5 g/dL LAB HEMATOLOGY METHOD 07/09/2025 12:16 AM EDT [facility] RDW 16.9(H) 11.5 - 14.5 % LAB HEMATOLOGY METHOD 07/09/2025 12:16 AM EDT [facility] MPV 10.3 8.8 - 12.5 fL LAB HEMATOLOGY METHOD 07/09/2025 12:16 AM EDT [facility] nRBC 0.0 <=0.0 per 100 WBCs LAB HEMATOLOGY METHOD 07/09/2025 12:16 AM EDT [facility] Blood Venous blood specimen / Unknown Venipuncture / Unknown 07/08/2025 11:52 PM EDT 07/08/2025 11:59 PM EDT us Luanne Crawford MD LAB BLOOD ORDERABLES Final Result [facility] [address] [place] [address] * Richie auris Surveillance by PCR (07/08/2025 11:50 PM EDT) Richie auris PCR Result Not Detected Not Detected 07/09/2025 11:26 AM EDT [facility] Swab (Axilla and Groin) Non-blood Collection / Unknown 07/08/2025 11:50 PM EDT 07/09/2025 12:17 AM EDT Narrative [facility] - 07/09/2025 11:26 AM EDT This PCR assay was developed and its performance characteristics determined by [facility] as appropriate for clinical purposes. This assay has not been cleared or approved by the FDA, but is performed in a CLIA regulated laboratory that is qualified to perform high-complexity testing. us Luanne Crawford MD LAB MICROBIOLOGY - GENERAL ORDERABLES Final Result Performing Organization Address City/[facility]/ZIP Co de Phone Number [facility] [address] [place] [address] * Multi Drug Resistance Test (07/08/2025 11:50 PM EDT) Culture No growth at day 1 07/10/2025 5:45 AM EDT [facility] Swab (Nares and Leann Rectal) Non-blood Collection / Unknown 07/08/2025 11:50 PM EDT 07/09/2025 12:17 AM EDT Narrative [facility] - 07/10/2025 5:45 AM EDT This test was developed and its performance characteristics determined by the [facility]. Although the media is FDA-approved, it is not FDA-approved for all specimen types submitted. The FDA has determined that such clearance or approval is not necessary. This test is used for surveillance purposes. It should not be regarded as investigational or for research. The [facility] is certified under the Clinical Laboratory Improvement Amendments of 1988 (CLIA-88) as qualified to perform high complexity clinical laboratory testing. us Luanne Crawford MD LAB MICROBIOLOGY - GENERAL ORDERABLES Final Result [facility] [address] [place] [address] * (ABNORMAL) Blood gas, arterial (07/08/2025 11:50 PM EDT) pH, Arterial 7.27(L) 7.35 - 7.45 LAB HEMATOLOGY METHOD 07/09/2025 12:00 AM EDT [facility] pCO2, Arterial 53(H) 35 - 48 mmHg LAB HEMATOLOGY METHOD 07/09/2025 12:00 AM EDT [facility] pO2, Arterial 114(H) 83 - 108 mmHg LAB HEMATOLOGY METHOD 07/09/2025 12:00 AM EDT [facility] SO2, Measured, Arterial 99(H) 94 - 98 % LAB HEMATOLOGY METHOD 07/09/2025 12:00 AM EDT [facility] Base Excess, Arterial -3.1(L) -2.0 - 3.0 mmol/L LAB HEMATOLOGY METHOD 07/09/2025 12:00 AM EDT [facility] Bicarbonate, Calculated, Arterial 24 22 - 26 mmol/L LAB HEMATOLOGY METHOD 07/09/2025 12:00 AM EDT [facility] Hematocrit, Whole Blood 31.0(L) 34.0 - 45.0 % LAB HEMATOLOGY METHOD 07/09/2025 12:00 AM EDT [facility] Sodium, Whole Blood 134(L) 136 - 145 mmol/L LAB HEMATOLOGY METHOD 07/09/2025 12:00 AM EDT [facility] Potassium, Whole Blood 3.5(L) 3.6 - 4.9 mmol/L LAB HEMATOLOGY METHOD 07/09/2025 12:00 AM EDT [facility] Chloride, Whole Blood 101 97 - 107 mmol/L LAB HEMATOLOGY METHOD 07/09/2025 12:00 AM EDT [facility] Glucose, Whole Blood 315(H) 74 - 99 mg/dL LAB HEMATOLOGY METHOD 07/09/2025 12:00 AM EDT [facility] Ionized Calcium, Whole Blood 5.1 4.6 - 5.1 mg/dL LAB HEMATOLOGY METHOD 07/09/2025 12:00 AM EDT [facility] Lactate, Arterial, Whole Blood 1.7(H) 0.5 - 1.6 mmol/L LAB HEMATOLOGY METHOD 07/09/2025 12:00 AM EDT [facility] Blood Arterial blood specimen / Unknown Arterial Puncture / Unknown 07/08/2025 11:50 PM EDT 07/08/2025 11:59 PM EDT us Richard Betts CRNA LAB BLOOD ORDERABLES Sarah bennett Result [facility] [address] [place] [address] * (ABNORMAL) POCT glucose meter (07/08/2025 11:49 PM EDT) POCT Glucose 316(H) 74 - 99 mg/dL 07/08/2025 11:50 PM EDT [facility] Comment:Accuracy of a glucos [...] Comment 07/08/2025 11:50 PM EDT [facility] Die Drawing Checker ID Mary Cotto 07/08/2025 11:50 PM EDT [facility] Device ID [id number] 07/08/2025 11:50 PM EDT [facility] Specimen Type POC Arterial 07/08/2025 11:50 PM EDT [facility] Blood Arterial blood specimen / Unknown 07/08/2025 11:49 PM EDT 07/08/2025 11:50 PM EDT us Luanne Crawford MD LAB POINT OF CARE TEST DOCKED DEVICE UNSOLICITED RESULTS Final Result [facility] [address] [place] [address] * (ABNORMAL) Tissue Culture and Gram Stain (07/08/2025 10:48 PM EDT) Culture Light Growth 07/13/2025 1:13 PM EDT [facility] Culture 1+ Schaalia turicensis (formerly known as Actinomyces turicensis)(A) 07/13/2025 1:13 PM EDT [facility] Comment: The organism value for this result has been updated. These results have been appended to the previously preliminary verified report. This is a corrected result. Previous organism was Gram positive anthony on 07/11/2025 at 1052 EDT. Culture 1+ Staphylococcus hominis(A) 07/13/2025 1:13 PM EDT [facility] Comment: This isolate has been identified using the FDA Approved [employer] my6senseyper CA System The organism value for this result has been updated. These results have been appended to the previously preliminary verified report. Gram Stain Result Few Polymorphonuclear leukocytes(A) 07/13/2025 1:13 PM EDT [facility] Gram Stain Result Numerous Gram negative rods(A) 07/13/2025 1:13 PM EDT [facility] Gram Stain Result Few Gram positive cocci in pairs(A) 07/13/2025 1:13 PM EDT [facility] Tissue Topography unknown / Unknown 07/08/2025 10:48 PM EDT 07/09/2025 12:14 AM EDT Comment:Pre-op diagnosis: Necrotizing fasciitis (CMS/HCC) [M72.6] Luanne Crawford MD LAB MICROBIOLOGY - GENERAL ORDERABLES Final Result [facility] [address] [place] [address] * Transfuse fresh frozen plasma (07/08/2025 10:35 PM EDT) Richard Betts REGIONAL BUSINESS MANAGER BLOOD TRANSFUSION ORDERAB LES Final Result * Transfuse RBC (07/08/2025 10:29 PM EDT) Richard Betts REGIONAL BUSINESS MANAGER BLOOD TRANSFUSION ORDERAB LES Final Result * (ABNORMAL) Blood gas panel, arterial (07/08/2025 10:08 PM EDT) pH, Arterial 7.28(L) 7.35 - 7.45 LAB HEMATOLOGY METHOD 07/08/2025 10:15 PM EDT [facility] pCO2, Arterial 50(H) 35 - 48 mmHg LAB HEMATOLOGY METHOD 07/08/2025 10:15 PM EDT [facility] pO2, Arterial 121(H) 83 - 108 mmHg LAB HEMATOLOGY METHOD 07/08/2025 10:15 PM EDT [facility] SO2, Measured, Arterial 99(H) 94 - 98 % LAB HEMATOLOGY METHOD 07/08/2025 10:15 PM EDT [facility] Base Excess, Arterial -3.6(L) -2.0 - 3.0 mmol/L LAB HEMATOLOGY METHOD 07/08/2025 10:15 PM EDT [facility] Bicarbonate, Calculated, Arterial 23 22 - 26 mmol/L LAB HEMATOLOGY METHOD 07/08/2025 10:15 PM EDT [facility] Hematocrit, Whole Blood 29.9(L) 34.0 - 45.0 % LAB HEMATOLOGY METHOD 07/08/2025 10:15 PM EDT [facility] Sodium, Whole Blood 133(L) 136 - 145 mmol/L LAB HEMATOLOGY METHOD 07/08/2025 10:15 PM EDT [facility] Potassium, Whole Blood 3.5(L) 3.6 - 4.9 mmol/L LAB HEMATOLOGY METHOD 07/08/2025 10:15 PM EDT [facility] Chloride, Whole Blood 101 97 - 107 mmol/L LAB HEMATOLOGY METHOD 07/08/2025 10:15 PM EDT [facility] Glucose, Whole Blood 351(H) 74 - 99 mg/dL LAB HEMATOLOGY METHOD 07/08/2025 10:15 PM EDT [facility] Ionized Calcium, Whole Blood 4.5(L) 4.6 - 5.1 mg/dL LAB HEMATOLOGY METHOD 07/08/2025 10:15 PM EDT [facility] Lactate, Arterial, Whole Blood 2.1(H) 0.5 - 1.6 mmol/L LAB HEMATOLOGY METHOD 07/08/2025 10:15 PM EDT [facility] Blood Arterial blood specimen / Unknown 07/08/2025 10:08 PM EDT 07/08/2025 10:14 PM EDT Comment:Pre-op diagnosis: Necrotizing fasciitis (CMS/HCC) [M72.6] us Luanne Crawford MD LAB BLOOD ORDERABLES Final Result [facility] [address] [place] [address] * Surgical Pathology Exam (07/08/2025 10:07 PM EDT) Case Report Surgical Pathology Case: [id number] Authorizing Provider: Luanne Crawford MD Collected: 07/08/20258 Ordering Location: [facility]PER[facility] RO[facility] Received: 07/09/2025 0781 Pathologist: Boaz Fernandez MD Specimens: A) - Other (specify site), saphenous vein B) - Other (specify site), right leg 07/10/2025 3:45 PM EDT [facility] Final Diagnosis A. SAPHENOUS VEIN SEGMENT, REMOVAL: - SCLEROTIC VEIN WITH ADVENTITIAL INFLAMMATION. B. RIGHT LEG TISSUE DEBRIDEMENT: - ACUTE NECROTIZING FASCIITIS OF SKIN AND SOFT TISSUE. 07/10/2025 3:45 PM EDT [facility] at 1545 EDT Clinical Information Necrotizing fasciitis; post recent boil self popped wound. 50 y.o. female with PMH of DM, hidradenitis supparativa, current smoker (1.5 ppd), UTI, depression, anxiety, asthma, HLD, Celiac disease, 07/10/2025 3:45 PM EDT [facility] Gross Description A. SAPHENOUS VEIN Specimen is received fresh and placed in formalin labeled saphenous vein. Received is a segment of vessel that measures 8.5 cm in length and up to 0.7 cm in diameter. Specimen is sectioned to reveal a pinpoint lumen with dried blood. Phone Triage Specialist sections are taken and submitted in cassette A1. Cold Time: 8h 56m Abhishek Baptiste MD B. RIGHT LEG Specimen is received fresh labeled right leg. Received are numerous fragments of skin and underlying soft tissue that measure in aggregate 25.0 x 25.0 x 7.5 cm. Scattered areas of skin and soft tissue notable for being green-black, foul-smelling and extensively necrotic. Phone Triage Specialist sections are taken and submitted in cassettes B1-B2. Abhishek Baptiste MD 07/10/2025 3:45 PM EDT [facility] Note: A resident was involved in the service. I attest I examined the relevant preparations for the specimens and confirmed the diagnosis or interpretation. 07/10/2025 3:45 PM EDT [facility] Tissue Topography unknown / Unknown 07/08/2025 10:07 PM EDT 07/09/2025 7:40 AM EDT Comment:Pre-op diagnosis: Necrotizing fasciitis (CMS/HCC) [M72.6] Tissue specimen (specimen) Topography unknown / Unknown 07/08/2025 10:49 PM EDT 07/09/2025 7:40 AM EDT Comment:Pre-op diagnosis: Necrotizing fasciitis (CMS/HCC) [M72.6] us Luanne Crawford MD LAB PATHOLOGY ORDERABLES F inal Result [facility] [address] [place] [address] * Transfuse fresh frozen plasma (07/08/2025 10:04 PM EDT) us Richard N Obinnangkangg [employer]IONAL BUSINESS MANAGER BLOOD TRANSFUSION ORDERAB LES Final Result * Transfuse fresh frozen plasma: 1 Units (07/08/2025 10:04 PM EDT) Richard N Obinnangbang REGIONAL BUSINESS MANAGER BLOOD TRANSFUSION ORDERAB LES Final Result * Transfuse RBC (07/08/2025 9:41 PM EDT) Richard Yeboahngkangg REGIONAL BUSINESS MANAGER BLOOD TRANSFUSION ORDERAB LES Final Result * Transfuse RBC: 1 Units (07/08/2025 9:41 PM EDT) Richard N Obinnangkangg REGIONAL BUSINESS MANAGER BLOOD TRANSFUSION ORDERAB LES Final Result * Prepare Fresh Frozen Plasma: 2 Units (07/08/2025 9:24 PM EDT) Product Code A7246O71 [facility] BLOO D BANK Dispense Status Transfused BLOOD BANK Blood Expiration Date [id number] BLOOD BANK Unit Number [id number] CH B LOOD BANK Product Blood Type 5100 BLOOD BANK Blood Type O+ CH BLOOD BANK Product Code [id number] [facility] BLOO D BANK Dispense Status Transfused BLOOD BANK Blood Expiration Date [id number] BLOOD BANK Unit Number [id number] CH B LOOD BANK Product Blood Type 5100 BLOOD BANK Blood Type O+ CH BLOOD BANK Blood Venous blood specimen / Unknown Richard Betts REGIONAL BUSINESS MANAGER BLOOD BANK PRODUCT ORDERA BLES Final Result Performing Organization Address City/State/[facility] Co de Phone Number BLOOD BANK [address] [place] [address], * Prepare Leukocyte Reduced RBC: 2 Units (07/08/2025 9:23 PM EDT) Product Code [id number] [facility] BLOO D BANK Dispense Status Transfused BLOOD BANK Blood Expiration Date [id number] BLOOD BANK Unit Number [id number] CH B LOOD BANK Product Blood Type 5100 BLOOD BANK Blood Type O+ CH BLOOD BANK Crossmatch Compatible BLOOD BANK Product Code [id number] [facility] BLOO D BANK Dispense Status Transfused BLOOD BANK Blood Expiration Date [id number] BLOOD BANK Unit Number [id number] B LOOD BANK Product Blood Type 5100 BLOOD BANK Blood Type O+ BLOOD BANK Crossmatch Compatible BLOOD BANK Other Richard Betts CRNA BLOOD BANK PRODUCT ORDERA BLES Final Result BLOOD BANK [address] [place] [address], * (ABNORMAL) Abscess Culture and Gram Stain (07/08/2025 9:06 PM EDT) Culture Light Growth 07/13/2025 1:13 PM EDT [facility] Culture 1+ Mixed skin silvestre(A) 07/13/2025 1:13 PM EDT [facility] Comment: The organism value for this result has been updated. These results have been appended to the previously preliminary verified report. Edited result: Previously reported as Gram positive cocci on 07/10/2025 at 1154 EDT. This is a corrected result. Previous organism was Staphylococcus species on 07/11/2025 at 0633 EDT. Culture 1+ Schaalia turicensis (formerly known as Actinomyces turicensis)(A) 07/13/2025 1:13 PM EDT [facility] Comment: This result was determined by MALDI tof Mass spectrometry. This assay was developed and its performance characteristics determined by [facility] as appropriate for clinical [...] Gram positive cocci(A) 07/13/2025 1:13 PM EDT [facility] Gram Stain Result Few Gram variable rods(A) 07/13/2025 1:13 PM EDT [facility] Gram Stain Result Moderate Gram positive rods(A) 07/13/2025 1:13 PM EDT [facility] Gram Stain Result Numerous Gram negative rods(A) 07/13/2025 1:13 PM EDT [facility] Gram Stain Result Numerous Gram negative coccobacilli(A) 07/13/2025 1:13 PM EDT [facility] Gram Stain Result Moderate Polymorphonuclear leukocytes(A) 07/13/2025 1:13 PM EDT [facility] Swab Topography unknown / Unknown 07/08/2025 9:06 PM EDT 07/08/2025 9:15 PM EDT Comment:Pre-op diagnosis: Necrotizing fasciitis (CMS/HCC) [M72.6] us Luanne Crawford MD LAB MICROBIOLOGY - GENERAL ORDERABLES Final Result [facility] [address] [place] [address] * (ABNORMAL) POCT arterial blood gas gem (07/08/2025 8:51 PM EDT) pH, Arterial 7.28(L) 7.35 - 7.45 07/08/2025 8:53 PM EDT [facility] pCO2, Arterial 53(H) 35 - 48 mm Hg 07/08/2025 8:53 PM EDT [facility] pO2, Arterial 152(H) 83 - 108 mm Hg 07/08/2025 8:53 PM EDT [facility] SO2, Arterial 99(H) 94 - 98 % 07/08/2025 8:53 PM EDT [facility] Base Excess, Arterial -2.3(L) -2 - 3 mmol/L 07/08/2025 8:53 PM EDT [facility] HCO3, Arterial 24.9 22 - 26 mmol/L 07/08/2025 8:53 PM EDT [facility] Total Hemoglobin, Arterial, Whole Blood 10.9(L) 11.2 - 15.7 g/dL 07/08/2025 8:53 PM EDT [facility] Hematocrit, Arterial 33.0(L) 34.0 - 45.0 % 07/08/2025 8:53 PM EDT [facility] Sodium, Arterial 131(L) 136 - 145 mmol/L 07/08/2025 8:53 PM EDT [facility] Potassium, Arterial 3.8 3.6 - 4.9 mmol/L 07/08/2025 8:53 PM EDT [facility] Chloride, Whole Blood 98 97 - 107 mmol/L 07/08/2025 8:53 PM EDT [facility] Glucose, Arterial 418(H) 74 - 99 mg/dL 07/08/2025 8:53 PM EDT [facility] Ionized Calcium, Arterial 4.9 4.6 - 5.1 mg/dL 07/08/2025 8:53 PM EDT [facility] Lactate, Arterial 1.6 0.5 - 1.6 mmol/L 07/08/2025 8:53 PM EDT [facility] Body Temperature 37.0 Celsius 07/08/2025 8:53 PM EDT [facility] pH, Temp Corrected, Arterial 7.28(L) 7.35 - 7.45 07/08/2025 8:53 PM EDT [facility] pCO2, Temp Corrected, Arterial 53(H) 35 - 48 mm Hg 07/08/2025 8:53 PM EDT [facility] pO2, Temp Corrected, Arterial 152(H) 83 - 108 mm Hg 07/08/2025 8:53 PM EDT [facility] Die Drawing Checker ID Yadi Goel 07/08/2025 8:53 PM EDT [facility] Blood, Arterial Whole blood specimen / Unknown 07/08/2025 8:51 PM EDT 07/08/2025 8:53 PM EDT us Luanne Crawford MD LAB POINT OF CARE TEST DOCKED DEVICE UNSOLICITED RESULTS Final Result [facility] [address] [place] [id number] * ED HIV 1/2 Antibody/Antigen Screen w/Reflex to HIV 1/2 Differentiation (07/08/2025 6:14 PM EDT) HIV 1 & 2 Antibody/Antigen Screen Non Reactive Non Reactive 07/08/2025 7:12 PM EDT [facility] Comment:Screening for HIV 1 & 2 antibodies, and P24 antigen is NONREACTIVE. No confirmatory testing is required. Blood Venous blood specimen / Unknown Venipuncture / Unknown 07/08/2025 6:14 PM EDT 07/08/2025 6:30 PM EDT My Charles MD LAB BLOOD ORDERABLES Fi nal Result Performing Organization Address City/[facility]/ZIP Co de Phone Number [facility] [address] [place] [address] * Hepatitis C Antibody - ED (07/08/2025 6:14 PM EDT) [facility] Hepatitis C Antibody Negative Negative 07/08/2025 7:12 PM EDT [facility] Blood Venous blood specimen / Unknown Venipuncture / Unknown 07/08/2025 6:14 PM EDT 07/08/2025 6:30 PM EDT My Charles MD LAB BLOOD ORDERABLES Fi nal Result Performing Organization Address [facility] Co de Phone Number [facility] [address] [place] [address] * (ABNORMAL) C-Reactive protein (07/08/2025 6:14 PM EDT) [facility] CRP, Plasma 462.2(H) <=8.0 mg/L 07/08/2025 7:18 PM EDT [facility] Blood Venous blood specimen / Unknown Venipuncture / Unknown 07/08/2025 6:14 PM EDT 07/08/2025 6:23 PM EDT Narrative [facility] - 07/08/2025 7:18 PM EDT This CRP test is appropriate for assessment of infection, systemic inflammation and/or tissue injury. To assess cardiovascular disease risk order high sensitivity CRP (CRPH). My Charles MD LAB BLOOD ORDERABLES Fi nal Result Performing Organization Address City/[facility] Co de Phone Number [facility] [address] [place] [address] * (ABNORMAL) Lactic acid, venous (07/08/2025 6:14 PM EDT) [facility] Lactate, Venous, Whole Blood 2.6(H) 0.5 - 2.2 mmol/L LAB HEMATOLOGY METHOD 07/08/2025 6:29 PM EDT [facility] Blood Venous blood specimen / Unknown Venipuncture / Unknown 07/08/2025 6:14 PM EDT 07/08/2025 6:23 PM EDT My Charles MD LAB BLOOD ORDERABLES Fi nal Result Performing Organization Address [facility]/ZIP Co de Phone Number [facility] [address] [place] [address] * Type and screen (07/08/2025 6:14 PM [...] ORD ERABLES Final Result Performing Organization Address [facility] de Phone Number BLOOD BANK [address] [place] [address] * (ABNORMAL) PT-INR (07/08/2025 6:14 PM EDT) Prothrombin Time 15.3(H) 12.0 - 14.3 sec 07/08/2025 6:56 PM EDT [facility] INR 1.2(H) 0.9 - 1.1 07/08/2025 6:56 PM EDT [facility] Blood Venous blood specimen / Unknown Venipuncture / Unknown 07/08/2025 6:14 PM EDT 07/08/2025 6:23 PM EDT Narrative [facility] - 07/08/2025 6:56 PM EDT OPTIMAL INR RANGES FOR PATIENT ON ORAL ANTICOAGULANT THERAPY Prevention of venous thromboembolism INR 2.0 to 3.0 In patients with heart disease: Atrial fibrillation INR 2.0 to 3.0 Valvular heart disease INR 2.0 to 3.0 Tissue heart valves INR 2.0 to 3.0 Mechanical prosthetic valves INR 2.5 to 3.5 Prevention of recurrent AK INR 2.5 to 3.5 us My Charles MD LAB BLOOD ORDERABLES Fi nal Result [facility] [address] [place] [address] * (ABNORMAL) CBC w/diff (07/08/2025 6:14 PM EDT) WBC Count 26.15(H) 3.70 - 10.30 10*3/uL LAB HEMATOLOGY METHOD 07/08/2025 9:04 PM EDT [facility] RBC Count 3.97 3.90 - 5.20 10*6/uL LAB HEMATOLOGY METHOD 07/08/2025 9:04 PM EDT [facility] HGB 10.9(L) 11.2 - 15.7 g/dL LAB HEMATOLOGY METHOD 07/08/2025 9:04 PM EDT [facility] HCT 33.6(L) 34.0 - 45.0 % LAB HEMATOLOGY METHOD 07/08/2025 9:04 PM EDT [facility] Platelet Count 329 155 - 369 10*3/uL LAB HEMATOLOGY METHOD 07/08/2025 9:04 PM EDT [facility] MCV 85 79 - 98 fL LAB HEMATOLOGY METHOD 07/08/2025 9:04 PM EDT [facility] MCH 27.5 26.0 - 32.0 pg LAB HEMATOLOGY METHOD 07/08/2025 9:04 PM EDT [facility] MCHC 32.4 30.7 - 35.5 g/dL LAB HEMATOLOGY METHOD 07/08/2025 9:04 PM EDT [facility] RDW 17.3(H) 11.5 - 14.5 % LAB HEMATOLOGY METHOD 07/08/2025 9:04 PM EDT [facility] MPV 10.1 8.8 - 12.5 fL LAB HEMATOLOGY METHOD 07/08/2025 9:04 PM EDT [facility] nRBC 0.0 <=0.0 per 100 WBCs LAB HEMATOLOGY METHOD 07/08/2025 9:04 PM EDT [facility] Differential Type Automated LAB HEMATOLOGY METHOD 07/08/2025 9:04 PM EDT [facility] Neutrophils % 91 % LAB HEMATOLOGY METHOD 07/08/2025 9:04 PM EDT [facility] Lymphocytes % 4 % LAB HEMATOLOGY METHOD 07/08/2025 9:04 PM EDT [facility] Monocytes % 4 % LAB HEMATOLOGY METHOD 07/08/2025 9:04 PM EDT [facility] Eosinophils % 0 % LAB HEMATOLOGY METHOD 07/08/2025 9:04 PM EDT [facility] Basophils % 0 % LAB HEMATOLOGY METHOD 07/08/2025 9:04 PM EDT [facility] Immature Granulocytes % 1 % LAB HEMATOLOGY METHOD 07/08/2025 9:04 PM EDT [facility] Neutrophils Absolute 23.61(H) 1.60 - 6.10 10*3/uL LAB HEMATOLOGY METHOD 07/08/2025 9:04 PM EDT [facility] Lymphocytes Absolute 1.15(L) 1.20 - 3.90 10*3/uL LAB HEMATOLOGY METHOD 07/08/2025 9:04 PM EDT [facility] Monocytes Absolute 0.98(H) 0.30 - 0.90 10*3/uL LAB HEMATOLOGY METHOD 07/08/2025 9:04 PM EDT [facility] Eosinophils Absolute 0.04 0.00 - 0.50 10*3/uL LAB HEMATOLOGY METHOD 07/08/2025 9:04 PM EDT [facility] Basophils Absolute 0.09 0.00 - 0.10 10*3/uL LAB HEMATOLOGY METHOD 07/08/2025 9:04 PM EDT [facility] Immature Granulocytes Absolute 0.25(H) 0.00 - 0.06 10*3/uL LAB HEMATOLOGY METHOD 07/08/2025 9:04 PM EDT [facility] Blood Venous blood specimen / Unknown Venipuncture / Unknown 07/08/2025 6:14 PM EDT 07/08/2025 6:23 PM EDT Narrative [facility] - 07/08/2025 9:04 PM EDT Therapeutic decision making should be based on absolute values, rather than percentages. us My Charles MD LAB BLOOD ORDERABLES Fi nal Result [facility] [address] [place] [address] * (ABNORMAL) CMP (07/08/2025 6:14 PM EDT) Glucose, Plasma 411(H) 74 - 99 mg/dL 07/08/2025 7:18 PM EDT [facility] BUN, Plasma 33(H) 7 - 21 mg/dL 07/08/2025 7:18 PM EDT [facility] Creatinine, Plasma 1.99(H) 0.60 - 1.10 mg/dL 07/08/2025 7:18 PM EDT [facility] BUN/Creatinine Ratio 17 07/08/2025 7:18 PM EDT [facility] Sodium, Plasma 131(L) 136 - 145 mmol/L 07/08/2025 7:18 PM EDT [facility] Potassium, Plasma 4.0 3.6 - 4.9 mmol/L 07/08/2025 7:18 PM EDT [facility] Chloride, Plasma 93(L) 97 - 107 mmol/L 07/08/2025 7:18 PM EDT [facility] CO2, Plasma 22 22 - 29 mmol/L 07/08/2025 7:18 PM EDT [facility] Anion Gap 16 6 - 16 mmol/L 07/08/2025 7:18 PM EDT [facility] Total Calcium, Plasma 9.3 8.9 - 10.2 mg/dL 07/08/2025 7:18 PM EDT [facility] Total Protein 6.0(L) 6.3 - 7.9 g/dL 07/08/2025 7:18 PM EDT [facility] Albumin, Plasma 2.6(L) 3.5 - 5.2 g/dL 07/08/2025 7:18 PM EDT [facility] AST, Plasma 16 10 - 35 U/L 07/08/2025 7:18 PM EDT [facility] ALT, Plasma 15 10 - 35 U/L 07/08/2025 7:18 PM EDT [facility] Alkaline Phosphatase, Plasma 165(H) 35 - 104 U/L 07/08/2025 7:18 PM EDT [facility] Total Bilirubin, Plasma 0.4 0.2 - 1.1 mg/dL 07/08/2025 7:18 PM EDT [facility] eGFRcr 30.3 mL/min/1.7 3m*2 07/08/2025 7:18 PM EDT [facility] Comment:Reported eGFRcr in m L/min/1.73m2 is based the CKD-EPI 2020 equation that does not use a race coefficient. Blood Venous blood specimen / Unknown Venipuncture / Unknown 07/08/2025 6:14 PM EDT 07/08/2025 6:23 PM EDT us My Charles MD LAB BLOOD ORDERABLES Fi nal Result Performing Organization Address City/State/[facility] Co de Phone Number [facility] [address] [place] [address] * ID CRITICAL CARE, E/M 30-74 MINUTES [...] Reason: Patient/family refused)0526 (Given - Provider: Eulalia Estrada, RN)1215 (Given - Provider: Josi Ann RN)1800 [...] RN)211 (Given - Provider: Inessa Almazan RN) 0839 [...] 2234 (Given - Provider: Inessa Almazan RN) 2123 (Given - Provider: Inessa Almazan RN) insulin [...] RN) 0957 (Not Given - Provider: Kalyn Martell, RN - Reason: Patient/family refused)1232 (Not Given [...] RN)2114 (Given - Provider: Inessa Almazan RN) 0913 (Not Given - Provider: Kalyn Martell, RN - Reason: Patient/family refused) lamoTRIgine (LaMICtal XR) 24 hr tablet 100 mg 100 mg, Oral, Nightly, First dose on Tue07/11/25 at 2000, Until Discontinued, Routine 2018 (Given - Provider: Inessa Almazan RN) 2122 [...] Routine 1001 (Given - Provider: Josi Ann RN)165 (Given - Provider: Josi Ann RN)2018 (Given - Provider: Inessa Almazan RN) 0851 (Given - Provider: Josi Ann RN)1816 (Not Given - Provider: Josi Ann RN [...] Routine 1150 (Not Given - Provider: Kalyn Martell, RN - Reason: Hold for condition: must add comment - Comment: no wv in place due to [facility] dc) polyethylene glycol (Miralax) packet 17 g [...] Estrada RN)1658 (See Alternative - Provider: Josi Ann, RN)2308 (See Alternative - Provider: Inessa Almazan, RN) 0851 (See Alternative - Provider: Josi [...] documented as of this encounter Care Teams Drywall Stripper Helper Relationship Specialty Start Date End Date Yenny Dhillon APRN [address] [place] [address] PCP - General 07/22/23 documented as of this encounter
--- OUTSIDE RECORDS SUMMARY | 2025-07-08 20:09 | XMS_ITS | Encounter Summary ---
Author Organization Healthcare Address [address] [place] [address] Care Team Providers Care Parliamentary Counsel Name Role Phone Yenny Dhillon APRN Primary Care Provider [phone] Reason for Visit * Auth/Cert (Routine) Specialty Diagnoses / Procedures Referred By Bharati t Referred To Contact Diagnoses Necrotizing fasciitis (CMS/HCC) Necrotizing Fascitis Brittany Crawford MD [address] [facility] [address] [place] [address] Phone: tel: fax: [facility] Inpatient [address] [place] [address] Phone: tel: Referral ID Status Reason Start Date Expiration Date Visits Re quested Visits Authorized [id number] 1 1 Encounter Details Date Type Department Care Team (Late st Contact Info) Description 07/08/2025 8:09 PM EDT Anesthesia Event [facility] [address] [place] [address] Yadi Goel MD [address] [place] [address] Jesse Montes MD [address] [place] [address] Anesthesia Record Procedure Summary Procedure Name Responsible [...] No change to dentition. ; Placed by: OPHTHALMIC SURGICAL ASSISTANT; Removal Date: 07/10/25; Removal Time: 164907/08/252027 by [...] by Cheyanne Briceño RN 07/10/25 1115 by Zaar Segovia RN documented in this encounter Social [...] and Staff Patient location during procedure: OR OPHTHALMIC SURGICAL ASSISTANT: Richard Betts CRNA Performed: OPHTHALMIC SURGICAL ASSISTANT Patient Condition Indications for airway management: anesthesia [...] original note were not included. Anesthesiologist: (Unknown) OPHTHALMIC SURGICAL ASSISTANT: (Unknown) Heel Seat Flap Stapler: (Unknown) Patient: Ashley Brown HPI: Ashley Brown [...] 12 months PFTs No results found for: XZL2YXE , [id number] , HGA2ZZN , FVCPRED IMAGING: No results found. PRIOR [...] 3 - emergent Plan was reviewed with: OPHTHALMIC SURGICAL ASSISTANT Anesthesia technique(s) discussed with the patient/family: general [...] Anxiety Asthma Carpal tunnel syndrome Depression Diabetes (CMS/FORMER[facility]) H/O absence seizures Hidradenitis High cholesterol Hypertension [...] Visit Medical Office Building Urology [address] [facility] [facility], [address] [place] [address] Marj Matamoros, HEALTH INFORMATION MANAGEMENT DIRECTOR [address] [facility] [address] [place] [id number] documented as of this encounter Procedures Procedure Name Priority Date/Time Associated Diagnosis Comments ANESTHESIA ULTRASOUND GUIDED Routine 07/08/2025 8:37 PM EDT PB ANESTHESIA NON-TIMED PROCEDURE PLACEHOLDER Routine 07/08/2025 8:37 PM EDT IL AN CENTRAL LINE TRIPLE LUMEN Routine 07/08/2025 8:37 PM EDT PB ANESTHESIA PLACEHOLDER Routine 07/08/2025 8:28 PM EDT IL AN ELECTIVE ENDOTRACHEAL AIRWAY Routine 07/08/2025 8:28 PM EDT ANESTHESIA ARTERIAL LINE PLACEMENT Routine 07/08/2025 8:22 PM EDT documented in this encounter Results * IL AN CENTRAL LINE TRIPLE LUMEN, PB ANESTHESIA [...] Staffing Performed: Anesthesiologist Anesthesiologist: Yadi Goel MD us Yadi Goel MD ANESTHESIA ORDERABLES Final R esult * IL AN ELECTIVE ENDOTRACHEAL AIRWAY, PB ANESTHESIA PLACEHOLDER (07/08/2025 8:28 PM EDT) Richard Malin CRNA - 07/08/2025 8:28 PM EDT Richard Betts CRNA 07/08/2025 8:39 PM Airway Date/Time: 07/08/2025 8:28 PM Reason: elective Airway not difficult General Information and Staff Patient location during procedure: OR OPHTHALMIC SURGICAL ASSISTANT: Richard Betts CRNA Performed: OPHTHALMIC SURGICAL ASSISTANT Patient Condition Indications for airway management: anesthesia [...] Additional Comments Atraumatic. No change to dentition. Yadi Goel MD ANESTHESIA ORDERABLES Final R [...] Staffing Performed: Anesthesiologist Anesthesiologist: Yadi Goel MD us Yadi Goel MD ANESTHESIA ORDERABLES Final R [...] Intravenous, As needed, Starting on Tue07/08/25 at 2025, Until Tue07/08/25 at 2342, Routine, Anesthesia Intraprocedure Given 07/08/2025 10:47 PM EDT 30 mg Given 07/08/2025 9:02 PM EDT 50 mg Given 07/08/2025 8:30 PM EDT 95 mg sodium chloride 0.9 % infusion Intravenous, Continuous PRN, Starting on Tue07/08/25 at 2025, Until Tue07/08/25 at 2342, Routine New Bag 07/08/2025 9:21 PM EDT New Bag 07/08/2025 8:26 PM EDT sodium chloride 0.9 % infusion Intravenous, Continuous PRN, Starting on Tue07/08/25 at 2012, Until Tue07/08/25 at 2342, Routine New Bag 07/08/2025 8:13 PM EDT 100 mL/hr succinylcholine (Anectine) injection Intravenous, As needed, Starting on Tue07/08/25 at 2025, Until Tue07/08/25 at 2342, Routine, Anesthesia Intraprocedure [...] documented as of this encounter Care Teams Parliamentary Counsel Relationship Specialty Start Date End Date Yenny Dhillon APRN [address] [place] [address] PCP - General 07/22/23 documented as of this encounter
--- OUTSIDE RECORDS SUMMARY | 2025-07-10 11:35 | XMS_ITS | Encounter Summary ---
Author Organization Healthcare Address [address] [place] [address] Care Team Providers Care Dealer Development Manager Name Role Phone Yenny Dhillon APRN Primary Care Provider [phone] Reason for Visit * Reason Comments Wound Check * Auth/Cert (Routine) Specialty Diagnoses / Procedures Referred By Bharati wiggins Referred To Contact Diagnoses Necrotizing fasciitis ([facility]/HCC) Necrotizing Fascitis Luanne Crawford MD [address] [address] Phone: tel: fax: P[facility] A Inpatient [address] [place] [address] Phone: tel: Referral ID Status Reason Start Date Expiration Date Visits Re quested Visits Authorized [id number] 1 1 Encounter Details Date Type Department Care Team (Late st Contact Info) Description 07/10/2025 11:35 AM EDT - 07/10/2025 1:45 PM EDT Surgery [facility] OPERATING ROOM [address] [place] [address] Dorcas Hennessy MD [address] [address] DEBRIDEMENT, WOUND groin Surgery Details Date/Time Status Location OR Service Patient Class Case Class Case Type Trauma Case? 07/10/2025 11:35 AM Posted [facility] OR 2OR 14 General Surgery Inpatient E-Electi ve Panel 1 Procedure LRB Anes Op Region Wound Class Comments DEBRIDEMENT, WOUND groin Right General Surgeon Surgeon Role Service Panel Cheyanne Chakraborty MD Resident - Assisting 1 Dorcas Hennessy MD Primary General Surgery 1 Shelby Whittington MD Resident - Assisting 1 documented in [...] Sign Reading Time Taken Comments Blood Pressure 118/66 07/10/2025 1:00 PM EDT Pulse 81 07/10/2025 1:00 PM EDT Temperature 37.1 C (98.8 F) 07/10/2025 12:00 PM EDT Respiratory Rate 16 07/10/2025 1:00 PM EDT Oxygen Saturation 94% 07/10/2025 1:00 PM EDT Inhaled Oxygen Concentration - - Weight 177 kg (391 lb 1.5 oz) 07/08/2025 6:05 PM EDT Height 177.8 cm (5' 10 ) 07/09/2025 7:20 PM EDT Body Mass Index 51.1 07/09/2025 7:20 PM EDT documented in this encounter Functional Status * Calculated C-SSRS Risk Score (Lifetime/Recent) Answer Date of Assessment Author No Risk Indicated 07/10/2025 4:00 AM EDT Cheyanne Qiu RN * Question Answer Date of Assessment Author 1. Wish to be (Past 1 Month) No 07/10/2025 4:00 AM EDT Cheyanne Briceño, NAHID 2. Non-Specific Active Suicidal Thoughts (Past 1 Month) No 07/10/2025 4:00 AM EDT Cheyanne Briceño, RN 6. Suicidal Behavior (Lifetime) No 07/10/2025 4:00 AM EDT Cheyanne Briceño, RN documented as of this encounter Discharge [...] in place, sutures removed on rounds. [facility] can re- apply negative pressurewound therapy: [...] please call our General Surgery Clinic at [phone]. If there are questions or concerns after discharge from the hospital, call Radha Ugalde, Nurse Coordinator between 7am-3pm at [phone]. If it is after hours, weekends, and holidays please call [phone] and ask for the resident cardiac sonographer for Emergency General Surgery. Medication requests should be made between the hours of 9:00 AM to 3:00 PM Tuesday thru Tuesday. Please note that based upon recent changes to [place] law related to prescribing opioid pain medications, [...] and Manage Fall Risk Flowsheets (Taken 07/19/2025 08) Safety Promotion/Fall Prevention: activity supervised assistive device/personal items within reach clutter-free environment maintained fall prevention program maintained lighting adjusted mobility aid in reach nonskid shoes/slippers when out of bed room organization consistent safety round/check completed toileting scheduled Intervention: Prevent Skin Injury Flowsheets Taken 07/19/2025 08 by Junior Sabrina Santos Body Position: weight shifting Taken 07/18/20252319 by Inessa Almazan, RN Skin Protection: incontinence pads utilized protective footwear used transparent dressing maintained Intervention: Prevent and Manage VTE (Venous Thromboembolism) Risk Flowsheets (Taken 07/19/2025 0800) VTE Prevention/Management: bilateral SCDs (sequential compression devices) off medication Intervention: Prevent Infection Flowsheets (Taken 07/18/2025 1600 by Josi Ann RN) Infection Prevention: hand hygiene promoted rest/sleep promoted Goal: Optimal Comfort and Wellbeing Outcome: Met Intervention: Monitor Pain and Promote Comfort Flowsheets (Taken 07/19/2025 0223 by Inessa Almazan RN) Pain Management Interventions: medication (see MAR) [...] Outcome: Met Intervention: Promote Activity and Functional Fulda Flowsheets Taken 07/18/20252319 by Inessa Almazan, RN Self-Care Promotion: independence encouraged Taken 07/18/20251999 by Inessa Almazan, NAHID Activity Assistance Provided: assistance, stand-by Taken 07/14/20252310 by Rita Alejandro, NAHID Adaptive Equipment Use: long-handled shoe horn Problem: Wound Goal: Optimal Coping Outcome: Met Intervention: Support Patient and Family Response Flowsheets (Taken 07/18/2025 1600 by Josi Ann, NAHID) Supportive Measures: active [...] Pain Flowsheets Taken 07/19/2025 0223 by Inessa Almazan, scan coordinator Interventions: medication (see MAR) Taken 07/18/2025 1600 [...] Flowsheets (Taken 07/18/2025 1600 by Josi Ann, RN) Sleep/Rest Enhancement: awakenings minimized consistent schedule promoted * Progress Notes - Annie Littlejohn - 07/19/2025 9:59 AM EDT Case Management Discharge Note Cristina Brown 50 y.o. female CSN: [id number] Admission: 07/08/2025 5:58 PM Primary Problem: Necrotizing fasciitis (CMS/HCC) Primary Signal Person: Primary Caregiver: Self Assistance Available at Discharge: [...] Community Agency(s): Patient's Choice of Community Agency(s): [facility] Patient/Family Anticipated Services at Transition: Patient/Family Anticipated Services at Transition: rehabilitation services DME/Equipment Needed after Discharge: Equipment Currently Used at Home: none Equipment Needed After Discharge: walker, rollator Readmission Within the Last 30 Days: Readmission Within the Last 30 Days: unable to assess Medicare Documentation: N/A Follow-up: Keaton Patel MD [address] [facility] [address] [place] [address] [facility] ([facility] [address] [facility] [address] Go on 07/19/2025 Discharge Transportation: Transportation Anticipated: [...] arranged for this date at 1400 from [facility]. Annie Littlejohn * Gauri LouieJANETH - Raj Cardona RN - 07/19/2025 9:44 AM EDT Images from the original note were not included. 1087 Oxycodone Oral Tablet, Immediate Release Brand Names: Oxaydo, Roxicodone What is this medicine? Oxycodone (zp-v-HOF-done) is an opioid pain reliever. It is used to treat moderate to severe pain. What should I tell my health care provider before I take this medicine? They need to know if you have any of these conditions: ? Hatillo's disease ? Brain tumor or head injury [...] a special medication guide each time you picker machine operator this medicine. ? Overdosage: Taking too much [...] should report to your doctor or health laboratory animal caretaker as soon as possible: ? allergic reactions [...] attention (report to your doctor or health laboratory animal caretaker if they continue or are bothersome): ? constipation ? dry mouth ? itching ? nausea, vomiting ? upset stomach This list may not describe all possible side effects. Call your doctor for medical advice about side effects. You may report side effects to FDA at 3-097-MJW-7286. Where should I keep my medicine? This [...] location. To find a disposal location, visit [place]/[place]. If you cannot take unused medicine to a proper location, you can mix the medicine with coffee grounds or jose litter and dispose of in the normal trash. Your doctor may also give you a special disposal pouch for this medicine. You can also flush the medicine down the toilet. * Gauri [facility] - Raj Cardona RN - 07/19/2025 9:44 AM EDT Images from the original note were not included. [id number] Naloxone Nasal [place] WHY is this medicine prescribed? Prescription and [...] pharmacist for the instructions or visit the senior sales director's website to get the instructions. You should [...] or doctor for a copy of the senior sales director's information for the patient. Are there OTHER [...] and out of their sight and reach. https://www.upandEBR Systems.org Dispose of unneeded medications in a way [...] of all of the prescription and nonprescription (hzlx-xnk-htgjtys) medicines, vitamins, minerals, and dietary supplements you [...] or pharmacist about specific clinical use. The [place] [employer]System [employer]. represents that the information provided hereunder was formulated with a reasonable standard of care, and in conformity with professional standards in the field. The [place] [employer]System [employer]. makes no representations or warranties, express or implied, including, but not limited to, any implied warranty of merchantability and/or fitness for a particular purpose, with respect to such information and specifically disclaims all such warranties. Users are advised that decisions regarding drug therapy are complex medical decisions requiring the independent, informed decision of an appropriate health laboratory animal caretaker, and the information is provided for informational purposes only. The entire monograph for a drug should be reviewed for a thorough understanding of the drug's actions, uses and side effects. The [place] [employer]System [employer] does not endorse or recommend the use of any drug.The information is not a substitute for medical care. AHFS?? Patient Medication Information?. ?? Copyright, 2023. The [place] [employer]-System Pharmacists??, [address], [address], [place], [place]. All Rights Reserved. Duplication for commercial use must be authorized by [facility]. Selected Revisions: May 26, 2024. AHFS?? Patient Medication Information?. ?? Copyright, 2024 * [facility] - Raj Cardona RN - 07/19/2025 [...] controlled substances: ? Drug Enforcement Agency (HARIS): http://www.deadiversion.ReconRoboticsoPostedIn.gov/drug_disposal/takeback/index.htm ? National Association of Drug Diversion Investigators (NADDI): http://rxdrugdropbox.org/ ? [place] Office of Drug Control Policy: http://odcp.[place].gov/Prescription+Drug+Drop+Box+Sites.htm Are there concerns about or ? ? [...] that tracks prescriptions of controlled substances in [place]. The DANYELLE report tells your doctor if [...] or your doctor may then call the [place] Drug Enforcement and Professional Practices Branch at .This will start an investigation of the error. * Jodycynthia [facility] - Raj Cardona RN - 07/19/2025 9:44 AM EDT Images from the original note were not included. [address]61 Insulin: How to Use and Where to [...] ?needles? or ?sharps.? ? Call your local [employer] company to ask about removing the sharps container. You can also check withthe Coalition for Safe Community Needle Disposal at www.safeneedledisposal.org or 450-188-3929. Storing your insulin ? Keep unopened insulin [...] cold. Last Reviewed Date: 2023 00:00:00 ?? 0821-7934 The blabfeed. All rights reserved. This information is not intended as a substitute for professional medical care. Always follow your healthcare professional's instructions. * Gauri Rico - Raj Cardona RN - 07/19/2025 9:43 AM EDT Images from the original note were not included. [id number] Diet: Diabetes Food is an important tool [...] of Nutrition and Dietetics at www.eatright.org o [place] Diabetes Association at www.diabetes.org or 005-490-6921 o Association of Diabetes Care and Education Specialists at www.diabeteseducator.org/ Last Reviewed Date: 2024 00:00:00 ?? 9488-2440 The blabfeed. All rights reserved. This information is not intended as a substitute for professional medical care. Always follow your healthcare professional's instructions. * Gauri [facility] - Raj Cardona RN - 07/19/2025 9:43 AM EDT Images from the original note were not included. 68942 Diabetes: Understanding Carbohydrates, Fats, and Protein Food [...] foods. Last Reviewed Date: 2024 00:00:00 ?? 5817-5557 The blabfeed. All rights reserved. This information is not intended as a substitute for professional medical care. Always follow your healthcare professional's instructions. * [facility] - Raj Cardona RN - 07/19/2025 9:43 AM EDT Images from the original note were not included. 79913 Discharge Instructions: Packing a Wound You have [...] chills. Last Reviewed Date: 2025 00:00:00 ?? 1338-5832 The blabfeed. All rights reserved. This information is not intended as a substitute for professional medical care. Always follow your healthcare professional's instructions. * Gauri LouieJANETH - Raj Cardona RN - 07/19/2025 9:43 AM EDT Images from the original note were not included. 62574 Negative Pressure Wound Therapy Negative pressure wound [...] device. Last Reviewed Date: 2024 00:00:00 ?? 5136-2701 The blabfeed. All rights reserved. This information is not intended as a substitute for professional medical care. Always follow your healthcare professional's instructions. * Gauri LouieJANETH - Raj Cardona RN - 07/19/2025 9:43 AM EDT Images from the original note were not included. 14800 Discharge Instructions: Changing Your Dressing You are [...] doctor. Last Reviewed Date: 2025 00:00:00 ?? 2559-6051 The blabfeed. All rights reserved. This information is not intended as a substitute for professional medical care. Always follow your healthcare professional's instructions. * Gauri [facility] - Raj Cardona RN - 07/19/2025 9:42 AM EDT Images from the original note were not included. [id number] Abscess (Incision and Drainage) An abscess is [...] treatment. Last Reviewed Date: 2024 00:00:00 ?? 9526-3344 The blabfeed. All rights reserved. This information is not intended as a substitute for professional medical care. Always follow your healthcare professional's instructions. * Gauri [facility] - Raj Cardona RN - 07/19/2025 9:42 AM EDT Images from the original note were not included. 04746 Preventing a Surgical Site Infection A risk [...] of infection. ? Controlled body temperature. A jbxzv-wdgg-teqtbv temperature during or after surgery prevents oxygen [...] and water or with an alcohol-based hand ski topper before and after caring for you. Don?t [...] away. Last Reviewed Date: 2024 00:00:00 ?? 5773-0321 The blabfeed. All rights reserved. This information is not [...] to the condition itself. It comes from Vietnamese and Latin words for a gnawing sore [...] questions. Last Reviewed Date: 2023 00:00:00 ?? 7771-0899 The blabfeed. All rights reserved. This information is not [...] MD PCP name and Address: Yenny Dhillon, HUMAN FACTORS ADVISOR LEAD [address] [facility] [address] [facility] Referring provider name and address: Keaton Patel MD [address] [place] [facility] [address] [facility] Chief Concern, Brief History of Present Illness, and Hospital Course Cristina Brown is a 50 y.o. female with PMH of DM, hidradenitis supparativa, current smoker (1.5ppd), hx of absent seizures, UTI, depression, anxiety, asthma, HLD, celiac disease, presenting to [facility] on 07/08/2025 as transfer with concern [...] and so will be discharged to [facility]. Surgeries and Procedures Procedures performed in [...] Your Medications These medications were sent to [facility] [place], [place] - [address] [facility] [facility] [address] naloxone 4 mg/0.1 mL nasal spray Information [...] - Improving, continue to monitor Septic shock ([facility]) Overview Addendum 07/12/2025 1:55 PM [...] in place, sutures removed on rounds. [facility] can re- apply negative pressurewound therapy: [...] please call our General Surgery Clinic at [phone]. If there are questions or concerns after discharge from the hospital, call Radha Ugalde, Nurse Coordinator between 7am-3pm at [phone]. If it is after hours, weekends, and holidays please call [phone] and ask for the resident cardiac sonographer for Emergency General Surgery. Medication requests should be made between the hours of 9:00 AM to 3:00 PM Tuesday thru Tuesday. Please note that based upon recent changes to [place] law related to prescribing opioid pain medications, [...] normal. Judgment: Judgment normal. Discharge Disposition/Condition Disposition: [facility] Condition: Stable (s/sx potential problems absent [...] (H) 07/17/2025 I reviewed bg tracing in [facility] glucose timeline 07/19/25 ASSESSMENT Hospital Course: Cristina Brown is a 50 y.o. female with hx of type 2 DM, morbid obesity, hidradenitis supparativa, current smoker (1.5 ppd), hx of absent seizures, UTI, depression, anxiety, asthma, HLD, celiac disease who initially came to [facility] on 07/08/2025 as transfer with concern [...] to establish care with endocrine provider in [place], [place]. --> Provided patient with address and number of clinic. [[facility] Endocrinology Clinic in the [facility] Physician Building]. -Tentative discharge recommendations: Likely [...] team via secure chat orpage us at [phone] during 7a-7p, Tuesday-Tuesday. For after hours please [...] lispro, 0-3 Units, Subcutaneous, Twice at night Jsoe, 1 packet, Oral, BID lamoTRIgine, 100 [...] and newly diagnosed JOSEP who presented to [facility] with leukocytosis and exam findings consistent [...] Drain (mL) 07/17/25 07 - 07/17/25 18507/17/25 190 - 07/18/25 0659 07/18/25 07 - 07/18/25 18507/18/25 190 - 07/19/25 0659 [...] from last 7 days Lab Units 07/19/25 04207/18/25 0603 07/17/25 0520 HEMOGLOBIN g/dL 9.6* 9.1* [...] the brett pad. After discussion with chief cardiac sonographer, decision was made to remove the [place] and place a tpg-usm-qlrpnovv with Kerlix, Polymem, ABD pads, and skin tape. Please see daily progress notes for additional plans. - Jatin Miller MD Plastic and Reconstructive Surgery, PGY-1 * Care Plan - Inessa Almazan RN - 07/18/2025 11:24 PM EDT Problem: Adult Inpatient Plan of Care Goal: Plan of Care Review 07/18/20252319 by Inessa Almazan, RN Outcome: Ongoing, Progressing Flowsheets Taken 07/18/20252319 by Inessa Almazan RN Progress: improving Taken 07/18/2025 1633 by Josi Ann RN Plan of Care Reviewed With: patient 07/18/2025 2319 by Inessa Almazan RN Outcome: Ongoing, Progressing Flowsheets Taken 07/18/20259 by Inessa Almazan RN Progress: improving Taken [...] Note Cristina Brown 50 y.o. female CSN: [id number] Admission: 07/08/2025 5:58 PM Primary Problem: Necrotizing fasciitis (CMS/HCC) Anticipated Discharge Date: 07/19/25 Has Discharge Plans Changed? Yes [facility] Acute Rehab Medicare Second Notice: Housing Circumstances: Low Income ( 101-300% Federal Poverty Guideline) Housing Circumstances Action Taken: Medically Ready for Discharge: Anticipated Tomorrow Additional Comments Per the MD pt is medically ready to d/c after she can tolerate her wv being changed without IV painmedication. SW talked with the pt and she is agreeable to go to [facility] however she still has a [...] the MD team. Pt will transfer to [facility] via shuttle on 07/19 if [...] HLD, celiac disease who initially came to [facility] on 07/08/2025 as transfer with concern [...] to establish care with endocrine provider in [place], [place]. --> Provided patient with address and number of clinic. [[facility] Endocrinology Clinic in the [facility] Physician Building]. -Tentative discharge recommendations: Likely [...] OR Adult Inpatient Diabetes team via secure [employer] [email or web address] us at [phone] during -7p, Tuesday-Tuesday. For after hours please [...] 7:05 AM EDT Associated Problem(s): Necrotizing fasciitis ([facility]) - 07/09: debridement of necrotizing [...] Morbid (severe) obesity due to excess calories ([facility]) Complicates all aspect of care [...] 7:05 AM EDT Associated Problem(s): Postoperative pain [employer] * Progress Notes - Jason Andre MD - 07/18/2025 7:04 AM EDT 07/18/25 Cristina Brown HPI 50-year-old female with past medical history of absence seizure, hidradenitis suppurative, hypertension, type 2 diabetes, obesity, and tobacco use disorder, and newly diagnosed OJSEP who presented to the emergency department with [...] montalvo catheter. Remove when able. Absence seizure ([facility]/HCC) Present on Admission: Yes - On Lamictal 50mg BID at home. Restarted 07/09. Acute respiratory failure Present on Admission: Yes CPAP at night for suspected sleep apnea Lasix PRN for pulmonary edema and to help with breathing Improving, will continue to monitor Septic shock ([facility]/HCC) Present on Admission: Yes Septic shock [...] Ongoing, Progressing Intervention: Promote Activity and Functional Fulda Flowsheets (Taken 07/18/2025204) Activity Assistance Provided: assistance, [...] Ongoing, Progressing Intervention: Promote Activity and Functional Fulda Flowsheets Taken 07/16/2025 0635 by Yessenia Ramirez [...] HLD, celiac disease who initially came to [facility] on 07/08/2025 as transfer with concern [...] to establish care with endocrine provider in [place], [place]. --> Provided patient with address and number of clinic. [[facility] Endocrinology Clinic in the [facility] Physician Building]. -Tentative discharge recommendations: Likely [...] via secure chat or page us at [phone] during 7a-7p, Tuesday-Tuesday. For after hours please [...] care close to her sisters house in [place]. CM notified. * Assessment & Plan [...] Morbid (severe) obesity due to excess calories ([facility]) Complicates all aspect of care [...] Edited by: Inderjit Montes PA at 07/17/2025 0648 Relevant review of systems was obtained as [...] Edited by: Inderjit Montes PA at 07/17/2025 09 Jason Andre MD Cosigned by Anne Franco [...] OCCUPATIONAL THERAPY TREATMENT Note to patient: The 21st Century Cures Act makes medical notes like [...] admission Level of Mobility Ambulatory- community Mobility Fulda Independent gait without device History of Falls [...] motivated and engaged throughout Visitors Present None Chief Clinical Officer (if applicable) OBJECTIVE PAIN Rates pain at [...] needed areas of treatment space Level of Fulda Interventions: Feeding Independent Edge of bed Patient [...] Level of Assistance: Moderate assistance Adaptive Equipment: Sort Worker, Sock aide Training and demonstration provided for use and functionality of sock aid, leg parquetry layer strap and cone worker tool to support independence with LB dressing, [...] and prioritizing during ADL performance. Access Code: [email or web address] URL: [email or web address] Putting On Socks with a Sock Aid Putting On and Taking Off Pants Using a Sort Worker Using a Leg Lasting Machine Operator Adaptive Equipment for Bathing & Showering Understanding Energy Conservation BED MOBILITY Level of Fulda Physical/Non- physical Assist Adaptive Equipment Utilized Supine to Sit Modified Fulda Bed rails TRANSFERS Level of Fulda Physical/Non- physical Assist Adaptive Equipment Utilized Sit [...] admission Level of Mobility Ambulatory- community Mobility Fulda Independent gait without device History of Falls [...] unaware when pt may be discharged from [facility]. Chief Clinical Officer (if applicable) Not Applicable OBJECTIVE & INTERVENTIONS [...] pt's true mobility BED MOBILITY Level of Fulda Physical/Non- physical Assist Adaptive Equipment Utilized Rolling/ Turning Scooting/ Bridging Supine to Sit Modified Fulda Bed rails Sit to Supine Interventions TRANSFERS Level of Fulda Physical/Non- physical Assist Adaptive Equipment Utilized Sit to Stand Stand-by assist Supervision Rollator Stand to sit Stand-by assist Supervision Rollator Bed to Chair Toilet Transfer Shower Transfer Interventions BALANCE Postural Appearance Posture: Forward head, Rounded shoulders Level of Fulda Balance Support Interventions Static Sit Standby assist Feet supported Dynamic Sit Contact guard Feet supported Dynamic Sitting-Balance: Lateral weight shifts, Anterior/Posterior weight shifts Static Stand Contact guard Right upper extremity support, Left upper extremity support Standing in room prior to ambulation Dynamic Stand Contact guard Right upper extremity support, Left upper extremity support 3 bouts of approx 1 min each AMBULATION Level of Fulda Distance Adaptive Equipment Utilized Ambulation Contact guard [...] Skin Protection Flowsheets Taken 07/17/2025 045 by Estrada, Eulalia J, RN Activity Management: activity adjusted per tolerance [...] Manage Infection Flowsheets Taken 07/17/2025 0450 by Euallia Estrada RN Isolation Precautions: precautions maintained Taken [...] independence encouraged BADL personal objects within reach BAD personal routines maintained adaptive equipment use encouraged [...] Ongoing, Progressing Intervention: Promote Activity and Functional Fulda Flowsheets Taken 07/16/2025 0635 by Yessenia Ramirez [...] techniques promoted Taken 07/14/2025 1800 by Josi Ann, local operator/Support System Care: support provided Goal: Optimal Functional [...] Pain Flowsheets Taken 07/16/2025 1810 by Isha Clounga RN Sleep/Rest Enhancement: regular sleep/rest pattern promoted [...] Ongoing, Progressing Intervention: Promote Activity and Functional Fulda Flowsheets Taken 07/16/2025 0635 by Yessenia Ramirez [...] Patient and Family Response Flowsheets Taken 07/16/2025 0129 by Eulalia Estrada RN Supportive Measures: active [...] Isha Colunga RN Flowsheets (Taken 07/16/20251699 by Dieog Munroe) Safety Promotion/Fall Prevention: safety round/check completed nonskid shoes/slippers when out of bed mobility aid in reach room organization consistent clutter-free environment maintained assistive device/personal items within reach 07/16/2025 180 by Isha Colunga RN Flowsheets (Taken 07/16/20251699 by Diego Munroe) Safety Promotion/Fall Prevention: safety round/check completed nonskid shoes/slippers when out of bed mobility aid in reach room organization consistent clutter-free environment maintained assistive device/personal items within reach Intervention: Prevent Skin Injury 07/16/2025 1810 by Isha Colunga RN Flowsheets [...] RN) VTE Prevention/Management: medication Intervention: Prevent Infection 07/16/2025 181 by Isha Colunga RN [...] Nutrition Support Management: weight trending reviewed 07/16/2025 1808 by Isha Colunga RN Flowsheets [...] 07/14/2025 1800 by Josi Ann RN) Nutrition Interventions: frequent small meals provided [...] RN Flowsheets (Taken 07/15/2025 132 by Sophia Salazar RN) Infection Management: aseptic [...] Ongoing, Progressing Intervention: Promote Activity and Functional Fulda Flowsheets (Taken 07/16/2025 012 by Eulalia Estrada RN) Self-Care Promotion: independence encouraged BADL personal objects within reach BADL personal routines maintained adaptive equipment use encouraged Problem: Wound Goal: Optimal Coping Outcome: Ongoing, Progressing Intervention: Support Patient and Family Response Flowsheets (Taken 07/16/2025 012 by Eulalia Estrada RN) Supportive Measures: active [...] pattern promoted Taken 07/16/2025 0129 by Eulalia Estrada, scan coordinator Interventions: (care plan) pillow support provided position [...] 3:01 PM EDT SW received call from Admissions Dean offering assistance for d/c planning. Her Callback #[phone] * Progress Notes - Sherrill Villa APRN [...] (H) 07/14/2025 I reviewed bg tracing in [facility] glucose timeline 07/16/25 ASSESSMENT Hospital Course: Cristina Brown is a 50 y.o. female with hx of type 2 DM, morbid obesity, hidradenitis supparativa, current smoker (1.5 ppd), hx of absent seizures, UTI, depression, anxiety, asthma, HLD, celiac disease who initially came to [facility] on 07/08/2025 as transfer with concern [...] to establish care with endocrine provider in [place], [place]. --> Provided patient with address and number of clinic. [[facility] Endocrinology Clinic in the [facility] Physician Building]. -Tentative discharge recommendations: Likely [...] Adult Inpatient Diabetes team via secure chat [email or web address] us at [phone] during 7a-7p, Tuesday-Tuesday. For after hours please [...] (mL) 07/14/25 0700 - 07/14/25 1859 07/14/25 190 - 07/15/25 0659 07/15/25 0700 - 07/15/25 [...] night Postoperative pain Present on Admission: Unknown [employer] Non-Hospital Problems Carpal tunnel syndrome Dehydration Hidradenitis [...] clothing Isolation Precautions: precautions maintained Taken 07/15/2025 132 by Sophia Salazar RN [...] Ongoing, Progressing Intervention: Promote Activity and Functional Fulda Flowsheets (Taken 07/16/2025128) Self-Care Promotion: independence encouraged BADL personal objects within reach BADL personal routines maintained adaptive equipment use encouraged Problem: Wound Goal: Optimal Coping Outcome: Ongoing, Progressing Intervention: Support Patient and Family Response Flowsheets Taken 07/16/2025128 by Eulalia Estrada RN Supportive Measures: active listening utilized verbalization of feelings encouraged problem-solving facilitated relaxation techniques promoted Taken 07/14/2025 1800 by Josi Ann local operator/Support System Care: support provided Goal: Optimal Functional Ability Outcome: Ongoing, Progressing Intervention: Optimize Functional Ability Flowsheets Taken 07/16/2025 012 by Eulalia Estrada RN Activity Management: activity adjusted per tolerance activity encouraged Taken 07/15/20251744 by Denia Boo, RN Activity Assistance Provided: assistance, stand-by Goal: Absence of Infection Signs and Symptoms Outcome: Ongoing, Progressing Intervention: Prevent or Manage Infection Flowsheets (Taken 07/16/2025 012) Fever Reduction/Comfort Measures: lightweight clothing Isolation Precautions: precautions maintained Goal: Improved Oral Intake Outcome: Ongoing, Progressing Intervention: Promote and Optimize Oral Intake Flowsheets Taken 07/16/2025 012 by Eulalia Estrada RN Nutrition Support Management: [...] Intervention: Promote Wound Healing Flowsheets (Taken 07/16/2025 012) Sleep/Rest Enhancement: awakenings minimized consistent schedule promoted [...] Ongoing, Progressing Intervention: Promote Activity and Functional Fulda Flowsheets Taken 07/15/2025 1745 by Denia Boo RN Activity Assistance Provided: assistance, stand-by Taken 07/14/2025 2311 by Rita Alejandro, RN Adaptive Equipment Use: long-handled shoe horn Taken 07/14/2025 1800 by Josi Ann RN Self-Care Promotion: independence encouraged Problem: Wound Goal: Optimal Coping Outcome: Ongoing, Progressing Intervention: Support Patient and Family Response Flowsheets Taken 07/15/2025 1325 by Sophia Salazar RN Supportive Measures: positive reinforcement provided Taken 07/14/2025 1800 by Josi Ann local operator/Support System Care: support provided Goal: Optimal Functional [...] Note Cristina Brown 50 y.o. female CSN: [id number] Room/Bed 123/123A Nutrition evaluation type: follow-up Reason for evaluation: Hospital course: 50 y o F transferred from OSH with concern for necrotizing fasciitis; OR 07/08 for excisional debridement of RLE, groin, pubis, and abdominal wall of skin, subcutaneous tissue, and muscle fascia, [id number]. Septic shock secondary to NSTI. Intubated & [...] Estimated Needs: Kcal: 25-27 kcal/kg adj bw (5248-2248 kcal/d) Protein: 1.5-1.7 g/kg adj bw (143-162 [...] acuity (ongoing) Acuity Level: 1 Marilee Agustin, SOCO, LD [1] Past Medical History: Diagnosis Date Anxiety Asthma Carpal tunnel syndrome Depression Diabetes ([facility]) H/O absence seizures Hidradenitis High [...] Note Cristina Brown 50 y.o. female CSN: [id number] Admission: 07/08/2025 5:58 PM Primary Problem: Necrotizing fasciitis ([facility]) Security Officer reviewed chart and spoke with patient to complete this Initial Case Management Assessment. PCP: Yenny Dhillon APRN Emergency Contact: Extended Emergency Contact Information Primary Emergency Contact: Yecenia Lake Mobile Relation: Sister Preferred language: [place]se Chief Clinical Officer needed? No Secondary Emergency Contact: Arnoldo Raymond Address: [address] [place] [address] Mobile Relation: Significant Other Preferred language: [place]se Chief Clinical Officer needed? No Insurance: Primary Visit Coverage Payer Plan Sponsor Code Group Number Group Name UHC MEDICAID UHC MEDICAID [facility] Primary Visit Coverage Subscriber Subscriber ID Subscriber Name Subscriber SSN Subscriber Address [id number] CRISTINA BROWN [id number] [place] [address] Patient information: Primary Caregiver: Self Accompanied by/Relationship: Arnoldo Coleelor- significant other Support System: Immediate family, Extended family, Friends Daily Living Activities: Functional Status: Minimum assistance Living Arrangements: Family, Friends Type of Residence: Private residence [address] [place] [address] Smoker in the Home?: Yes Current DME: Equipment Currently Used at Home: none Income Information: Income Source: Unemployed Income/Expense Information: Expenses exceed income Current Resources Utilized: Food [place] Housing Circumstances-Z Codes: Housing Circumstances (select all [...] Dialysis Services: N/A Living Will/Advance Directive/Power of Gas Brazer /Guardian: N/A Additional Comments: Pt gets her medications from [facility] in [place] * Consults - Anupama Braun MBBS [...] HLD, celiac disease who initially came to [facility] on 07/08/2025 as transfer with concern [...] Anxiety, Asthma, Carpal tunnel syndrome, Depression, Diabetes ([facility]/HCC), H/O absence seizures, Hidradenitis, High cholesterol, Hypertension, [...] after discharge close to her home at [place]. She agrees to call and make appointment [...] Endocrinology referral - patient requested to see probation agent in [place], [place]. Provided patient with address and number of clinic. [[facility] Endocrinology Clinic in the [facility] Physician Building]. Patient has been on insulin while hospitalized, but utilizing metformin at home with good compliance. Diabetes care complicated by celiac diagnosis - placed nutrition consult to help patient navigate gluten free and diabetes diet. * Assessment & Plan Note - Jason Andre MD - 07/15/2025 7:15 AM EDT Associated Problem(s): Necrotizing fasciitis ([facility]/HCC) - 07/09: debridement of necrotizing fasciitis in [...] 7:15 AM EDT Associated Problem(s): Absence seizure ([facility]/HCC) - On Lamictal 50mg BID at home. [...] (mL) 07/13/25 07 - 07/13/25 1859 07/13/25 190 [...] night Postoperative pain Present on Admission: Unknown [facility] [facility] Non-Hospital Problems Carpal tunnel syndrome Dehydration Hidradenitis [...] Promote and Optimize Oral Intake Flowsheets (Taken 07/14/20251799 by Josi Ann, RN) Oral Nutrition Promotion: calorie-dense foods provided rest periods promoted Nutrition Interventions: frequent small meals provided supplemental drinks provided Problem: Self-Care Deficit Goal: Improved Ability to Complete Activities of Daily Living Outcome: Ongoing, Progressing Intervention: Promote Activity and Functional Fulda Flowsheets Taken 07/14/20252310 by Rita Alejandro RN [...] of Bed (HOB) Positioning: HOB elevated Taken 07/14/20251799 by Josi Ann RN Pressure Reduction Devices: positioning supports utilized Skin Protection: frequent weight shift encouraged weight shift assistance provided incontinence pads utilized Goal: Optimal Wound Healing Outcome: Ongoing, Progressing Intervention: Promote Wound Healing Flowsheets (Taken 07/14/2025 1800 by Josi Ann, RN) Sleep/Rest Enhancement: awakenings minimized consistent schedule promoted * Care Plan - Falls, Josi Peoples RN - 07/14/2025 6:15 PM EDT Problem: [...] Ongoing, Progressing Intervention: Promote Activity and Functional Fulda Flowsheets (Taken 07/14/2025 1800) Activity Assistance Provided: [...] PM EDT Operative Note Date: 07/14/25 Location: [facility] Name: Cristina Brown, : 1975, Diagnoses: Pre-op Diagnosis Necrotizing fasciitis (CMS/HCC) Post-op Diagnosis Necrotizing fasciitis (CMS/HCC) Procedure(s): Wound irrigation Partial wound closure, total closed 30 cm length Attending Surgeon(s): * Anne Franco - Primary Well Services Operator(s): * Janell Cross MD - Resident - [...] (mL) 30 mL 07/14/25 1625 [REMOVED] NG/OG [facility] mouth (Removed) Placement Verification distal [...] 0400 Tube Feeding Method Continuous per pump 07/09/251999 Tube Feeding Bag Changed Yes 07/09/25 1205 Free water/flush (mL) 60 mL 07/10/25 0800 Intake (mL) 49 mL 07/10/25 0000 [REMOVED] NG/OG Hasty Sump 14 Fr Left nostril (Removed) Placement [...] portions of the procedure(s) and immediately available [facility] services the entire duration. See resident note for details. Anne Franco MD * Consults - Mary Luong, RN - 07/14/2025 9:36 AM EDTAssociated Order(s): [...] Morbid (severe) obesity due to excess calories ([facility]) Complicates all aspect of care [...] (mL) 07/12/25 07 - 07/12/25 1859 07/12/25 1900 - 07/13/25 [...] night Postoperative pain Present on Admission: Unknown [facility] Non-Hospital Problems Carpal tunnel syndrome Dehydration Hidradenitis [...] clutter-free environment maintained assistive device/personal items within [facility] fall prevention program maintained nonskid shoes/slippers when [...] clutter-free environment maintained assistive device/personal items within [facility] fall prevention program maintained nonskid shoes/slippers when [...] Promote Wound Healing Flowsheets (Taken 07/13/20251826 by eLatha Watkins RN) Sleep/Rest Enhancement: awakenings minimized * [...] Ongoing, Progressing Intervention: Promote Activity and Functional Fulda Flowsheets (Taken 07/13/20251826) Activity Assistance Provided: assistance, [...] Note Cristina Brown 50 y.o. female CSN: [id number] Admission: 07/08/2025 5:58 PM Primary Problem: Necrotizing fasciitis (CMS/HCC) Security Officer reviewed chart and spoke with Cristina to complete this Initial Case Management Assessment. PCP: Yenny Dhillon APRN Emergency Contact: Extended Emergency Contact Information Primary Emergency Contact: Yecenia Lake Mobile Relation: Sister Preferred language: [place]se Chief Clinical Officer needed? No Secondary Emergency Contact: Arnoldo Raymond Address: [address] [place] [address] Mobile Relation: Significant Other Preferred language: [place]se Chief Clinical Officer needed? No Insurance: Primary Visit Coverage Payer Plan Sponsor Code Group Number Group Name [facility] MEDICAID [facility] MEDICAID [facility] Primary Visit Coverage Subscriber Subscriber ID Subscriber Name Subscriber N Subscriber Address [id number] CRISTINA BROWN [id number] [place] [address] Patient information: Primary Caregiver: Self Accompanied by/Relationship: Arnoldo Raymond- significant other Support System: Immediate family Daily Living Activities: Functional Status: Independent Living Arrangements: Spouse/Significant other Type of Residence: Private residence [address] [place] [address] Current DME: Equipment Currently Used at Home: none Income Information: Housing Circumstances-Z Codes: Patient Referred to: Anticipated Discharge Date: unknown Patient's Discharge Goal: Referrals sent for Acute Rehab Assistance Available at Discharge: Arnoldo Raymond Discharge Transport: Arnoldo Raymond Follow Up Transport: Arnoldo raymond Home Health / Home Infusion / Outpatient Dialysis Services: none Living Will/Advance Directive/Power of Gas Brazer /Guardian: Additional Comments: CM discussed acute rehab placement with Cristina and Arnoldo Raymond. Their first choice is [facility] in [place], [place]. CM sent referrals in [facility]. Cristina will continue inpatient management for [...] 12:36 PM EDT Associated Problem(s): Postoperative pain [employer] * Progress Notes - Aparna Shultz - 07/13/2025 11:59 AM EDT Occupational Therapy Evaluation Patient Name: Cristina Brown Today's Date: 07/13/2025 OT Discharge Recommendations: Acute rehab Equipment Recommended: Defer to facility History Cristina Brown is 50 y.o. female admitted 07/08/2025 for work-up of Necrotizing fasciitis ([facility]). Problem List Active Hospital Problems Diagnosis Date Noted Postoperative pain 07/13/2025 JOSEP (obstructive sleep apnea) 07/11/2025 HLD (hyperlipidemia) 07/10/2025 Acute respiratory failure 07/09/2025 Septic shock ([facility]/HCC) 07/09/2025 Absence seizure (CMS/HCC) 07/09/2025 DM (diabetes mellitus) (CMS/HCC) 07/08/2025 Hidradenitis 07/08/2025 HTN (hypertension), benign 08/31/2023 Urge incontinence 08/31/2023 Smoker 06/09/2023 Depression 06/09/2023 Morbid (severe) obesity due to excess calories ([facility]) 02/15/2022 Chronic obstructive pulmonary disease, unspecified (CMS/HCC) [...] evaluation. Participants in Care Family/Caregiver Present: No Chief Clinical Officer: Not Applicable Presentation Oxygen Therapy: Supplemental oxygen [...] admission Level of Mobility: Ambulatory- community Mobility Fulda: Independent gait without device History of Falls: [...] Mobility Bed Mobility Exam: Scooting/Bridging Level of Fulda: Contact guard (seated scoot once sitting up on EOB and able to wiggle back into recliner chair) Bed Mobility Exam: Supine to Sit Level of Fulda: Moderate assist (50% patient's effort) Physical/Nonphysical Assist: Verbal Cues, Moderate cues, Additional assist utilized for safety, HOBelevated Assistive Device: Other (WATCH SUPERVISOR x2) Transfers Transfer Interventions: Patient performed sit < > stand x 3 reps total: Mod A from EOB, Min Afrom recliner chair, and CGA from BSC. Transfer Exam: Sit to stand Level of Fulda: Minimum assist (75% patient's effort) Physical/Nonphysical Assist: Verbal Cues, Minimal cues Assistive Device: Walker, rolling (andrea) Transfer Exam: Stand to Sit Level of Fulda: Minimum assist (75% patient's effort) Physical/Nonphysical Assist: Verbal Cues, Minimal cues Assistive Device: Walker, rolling (andrea) Transfer Exam: Bed to Chair/Chair to Bed Level of Fulda: Minimum assist (75% patient's effort) Physical/Nonphysical Assist: Verbal Cues, Minimal cues, Additional assist utilized for safety Type of Transfer: Sidesteps (bed > chair < > BSC) Assistive Device: Walker, rolling (andrea) Toilet Transfer Level of Fulda: Minimum assist (75% patient's effort) Physical/Nonphysical Assist: Nonverbal cues (demo/gestures), Verbal Cues, Set-up required, Minimal cues Type of Transfer: Sidesteps, To bedside commode (ordered bariatric BSC from [employer] as patient had difficulty getting on/off BSC [...] to allow bedside care to take placed (COVERED BUTTON MAKER entering to take vitals; RN enforcing bandages [...] for further toileting ADL needs. Standardized Assessments [facility] 6-Click Daily Activities Help from Other: Don/Doff Regular Lower Body Clothings: A lot Help From Other: Bathing: A lot Help From Other: Toileting: A lot Help From Other: Don/Doff Upper Body Clothings: Little Help From Other: Grooming: None Help From Other: Eating Meals: None [facility] 6 Click - Daily Activities Score: 17 [...] admitted 07/08/2025 for work-up of Necrotizing fasciitis ([facility]). Problem List Active Hospital Problems Diagnosis Date Noted Postoperative pain 07/13/2025 JOESP (obstructive sleep apnea) 07/11/2025 HLD (hyperlipidemia) 07/10/2025 [...] move. Participants in Care Family/Caregiver Present: No Chief Clinical Officer: Not Applicable Presentation Oxygen Therapy: Supplemental oxygen [...] details. Home Living/Set-up Lives With: Significant other (fianiceto + his mother, god brother + his [...] admission Level of Mobility: Ambulatory- community Mobility Fulda: Independent gait without device History of Falls: [...] Mobility Bed Mobility Exam: Scooting/Bridging Level of Fulda: Contact guard (seated scoot once sitting up on EOB and able to wiggle back into recliner chair) Bed Mobility Exam: Supine to Sit Level of Fulda: Moderate assist (50% patient's effort) Physical/Nonphysical Assist: Verbal Cues, Moderate cues, Additional assist utilized for safety, HOBelevated Assistive Device: Other (WATCH SUPERVISOR x 2) Transfers Transfer Interventions: Patient performed sit < > stand x 3 reps total: Mod A from EOB, Min Afrom recliner chair, and CGA from BSC. Cues for safe hand placement during transitions using RW. Transfer Exam: Sit to stand Level of Fulda: Minimum assist (75% patient's effort) Physical/Nonphysical Assist: Verbal Cues, Minimal cues Assistive Device: Walker, rolling (andrea) Transfer Exam: Stand to Sit Level of Fulda: Minimum assist (75% patient's effort) Physical/Nonphysical Assist: Verbal Cues, Minimal cues Assistive Device: Walker, rolling (andrea) Transfer Exam: Bed to Chair/Chair to Bed Level of Fulda: Minimum assist (75% patient's effort) Physical/Nonphysical Assist: Verbal Cues, Minimal cues, Additional assist utilized for safety Type of Transfer: Sidesteps (bed > chair < > BSC) Assistive Device: Walker, rolling (andrea) Toilet Transfer Level of Fulda: Minimum assist (75% patient's effort) Physical/Nonphysical Assist: [...] assistance Standardized Assessments Standardized Assessments Standardized Assessments: [facility] 6-Clicks Mobility Assessment [facility] 6-Clicks Mobility Assessment Difficulty patient has turning [...] climbing 3-5 steps with a railing?: Unable [facility] 6-Clicks Mobility Assessment Total : 15 No [...] anxiety, asthma, HLD, celiac disease, presenting to [facility] on 07/08/2025 as transfer with concern [...] and so will be discharged to [facility]. * Assessment & Plan Note - [...] - 07/13/2025 7:46 AM EDT 07/13/25 Cristina Bronw [facility] 50-year-old female with past medical history [...] - 07/12/25 0659 07/12/25 07 - 07/12/25 1859 07/12/25 190 [...] night Postoperative pain Present on Admission: Unknown [facility] [facility] Non-Hospital Problems Carpal tunnel syndrome Dehydration Hidradenitis [...] Airway None O2 Delivery Method: Nasal cannula IL SUP: 10 cm H20 Insp Time (sec): 1 sec FiO2 (%): 40 % S RR: 20 IL SUP: 10 cm H20 Output by Drain (mL) 07/10/25 07 - 07/10/25 1859 07/10/25 190 - 07/11/25 0659 07/11/25 07 - 07/11/25 1859 07/11/25 190 - 07/12/25 0659 07/12/25 07 - [...] saw and evaluated the patient with the medical/TREASURY CONSULTANT/PA student. I discussed the case with the medical/TREASURY CONSULTANT/PA student and agree with the findings and [...] PM EDT Operative Note Date: 07/11/25 Location: [facility] Name: Cristina Brown, : 1975, Diagnoses: Pre-op Diagnosis Necrotizing fasciitis (CMS/HCC) Post-op Diagnosis Necrotizing fasciitis (CMS/HCC) Procedure(s): Right groin/perineum/thigh/abdominal wound exploration and washout Attending Surgeon(s): * Dorcas Hennessy - Primary Well Services Operator(s): * Janell Cross MD - Resident - [...] Note Cristina Brown 50 y.o. female CSN: [id number] Room/Bed 133/133A Nutrition evaluation type: follow-up Reason for evaluation: Hospital course: 50 y o F transferred from OSH with concern for necrotizing fasciitis; OR 07/08 for excisional debridement of RLE, groin, pubis, and abdominal wall of skin, subcutaneous tissue, and muscle fascia, [id number]. Septic shock secondary to NSTI. Intubated & [...] Estimated Needs: Kcal: 25-27 kcal/kg adj bw (2080-9120 kcal/d) Protein: 1.5-1.7 g/kg adj bw (143-162 [...] -will monitor NPO duration -po per MD/ PHOTO PRINT SPECIALIST -when po diet appropriate, rec CC3, Gluten [...] 0.03 Units/min, Last Rate: 0.03 Units/min (07/11/25 07) [6] PRN medications: albuterol, glucose OR dextrose [...] Vent Status (ETT, Trach Only): In use IL SUP: 5 cm H20 Insp Time (sec): 1.5 sec Vent Mode: PS FiO2 (%): 60 % S RR: 14 IL SUP: 5 cm H20 MAP (cm H2O): 9 Output by Drain (mL) 07/09/25 07 - 07/09/25185807/09/25 190 - 07/10/25 0659 07/10/25 07 - [...] Yes Overview Addendum 07/11/2025 9:20 AM by Gabirel Segovia -Lamictal 100 mg daily HLD (hyperlipidemia) [...] at night due to suspected new dgx OJSEP - 1 L LR bolus at 715am [...] PM EDT Operative Note Date: 07/10/25 Location: [facility] Name: Cristina Brown, : 1975, Diagnoses: Pre-op Diagnosis Necrotizing fasciitis (CMS/HCC) Post-op Diagnosis Necrotizing fasciitis (CMS/HCC) Procedure(s): Right groin/perineum/thigh/abdominal wound exploration, debridement, and washout Attending Surgeon(s): * Dorcas Hennessy - Primary Well Services Operator(s): * Shelby Whittington MD - Resident - [...] 07/08/252341 Estimated Blood Loss: Minimal Drains: NG/OG Hasty Sump 14 Fr Left nostril (Active) Placement [...] Findings: All viable tissue. Wound measuring approximately [id number]. Packed with 5 kerlix tied together. Indications: Cristina Brown is an 50 y.o. female who is having surgery for Necrotizing fasciitis ([facility]). Patient presented in septic shock secondary to [...] Edited by: Lidia Ellis MD at 07/10/2025 5936 Relevant review of systems was obtained as [...] Vent Status (ETT, Trach Only): In use IL SUP: 5 cm H20 Insp Time (sec): 1.5 sec Vent Mode: PS FiO2 (%): 50 % S RR: 14 IL SUP: 5 cm H20 MAP (cm H2O): 9 Output by Drain (mL) 07/08/25 07 - 07/08/25 18507/08/25 190 - 07/09/25 0659 07/09/25 07 - 07/09/25 18507/09/25 1900 - 07/10/25 0659 07/10/25 0700 - [...] Morbid (severe) obesity due to excess calories ([facility]) Yes Overview Addendum 07/09/2025 4:07 PM by Lidia Ellis MD Complicates care. Smoker Yes Overview Signed 07/09/2025 3:05 PM by Lidia Ellis MD - Patient smokes 0.5-1ppd. - Smoking cessation when appropriate. Urge incontinence Yes DM (diabetes mellitus) ([facility]) Yes Overview Addendum 07/09/2025 4:11 PM by Lidia Ellis MD - Patient hyperglycemic, up to 300s. - Insulin drip per protocol. Hidradenitis Yes Absence seizure ([facility]) (Chronic) Yes Overview Addendum 07/10/2025 4:52 PM by Lidia Ellis MD On Lamictal 50mg BID. Acute respiratory failure Yes Overview Signed 07/09/2025 3:57 PM by Lidia Ellis MD - Patient presenting in septic shock due to RLE necrotizing fasciitis. - Requiring ventilator for respiratory support. Wean as tolerated. Septic shock ([facility]) Yes Overview Addendum 07/10/2025 4:53 [...] Protection: absorbent pad utilized/changed positioning supports utilized duzz-ik-bvoenl areas padded nloi-ri-actl areas padded Problem: Skin Injury Risk Increased Goal: Skin Health and Integrity Outcome: Ongoing, Progressing Intervention: Optimize Skin Protection Flowsheets Taken 07/09/20252246 by Cheyanne Briceño RN Pressure Reduction Devices: alternating pressure pump (MARLA) positioning supports utilized foam padding utilized specialty bed utilized Skin Protection: pulse oximeter probe site changed incontinence pads utilized Taken 07/09/20252199 by Cheyanne Briceño RN Activity Management: activity [...] Note Cristina Brown 50 y.o. female CSN: [id number] Room/Bed 133/133A Nutrition evaluation type: assessment Reason for evaluation: provider consult Hospital course: 50 y o F transferred from [facility] with concern for necrotizing fasciitis; OR 07/08 for excisional debridement of RLE, groin, pubis, and abdominal wall of skin, subcutaneous tissue, and muscle fascia, [id number]. Septic shock secondary to NSTI. Intubated & [...] oz) Estimated Needs: Kcal: 22-25 kcal/kg IBW (0245-4486 kcal/d) Protein: 2-2.5 g/kg IBW (136-171 g/d) [...] volume daily Acuity Level: 5 Mera Knowles, SOCO, LD [1] Past Medical History: Diagnosis Date [...] Surgical ICU Daily Progress Note 07/09/25 Cristina Anayaehart [facility] 50-year-old female with past medical history [...] decreased. Palpations: Abdomen is soft. Skin: Comments: [id number] open wound with no extension of cellulitis. [...] PEEP (cmH2O): 18 S VT: 450 mL IL SUP: 10 cm H20 Insp Time (sec): 0.8 sec Vent Mode: PS FiO2 (%): 50 % S RR: 22 S VT: 450 mL IL SUP: 10 cm H20 MAP (cm H2O): 10 Output by Drain (mL) 07/07/25 07 - 07/07/25 18507/07/251899 - 07/08/25 0659 07/08/25 07 - 07/08/25 18507/08/25 190 - [...] last 7 days Lab Units 07/09/2545607/08/25235107/08/25 1814 HEMOGLOBIN g/dL 11.0* 10.0* 10.9* HEMATOCRIT % 33.4* 30.8* 33.6* INR Results from last 7 days Lab Units 07/08/25235207/08/25 1814 INR 1.2* 1.2* Cr Results from [...] appropriate. Urge incontinence Yes DM (diabetes mellitus) ([facility]/HCC) Yes Overview Addendum 07/09/2025 4:11 PM by Lidia Ellis MD - Patient hyperglycemic, up to 300s. - Insulin drip per protocol. Hidradenitis Yes Absence seizure ([facility]) (Chronic) Yes Overview Addendum 07/09/2025 [...] PM EDT Operative Note Date: 07/08/25 Location: [facility] Name: Cristina Brown, : 1975, Diagnoses: Pre-op Diagnosis Necrotizing fasciitis (CMS/HCC) Post-op Diagnosis Necrotizing fasciitis (CMS/HCC) Procedure(s): Excisional debridement of right thigh, groin pubis and abdominal wall including skin, subcutaneous tissue and fascia measuring 65 x 20 x 2cm Attending Surgeon(s): * Luanne Crawford - Primary Well Services Operator(s): * Kristy Fields MD - Resident - [...] 07/08/2025 9:01 PM EDT Date: 07/09/25 Location: [facility] Name: Cristina Brown, : 1975, Diagnoses: Pre-op Diagnosis Necrotizing fasciitis (CMS/HCC) Post-op Diagnosis Necrotizing fasciitis (CMS/HCC) Procedure(s): Excisional debridement of right lower extremity, groin, pubis, and abdominal wall of skin, subcutaneous tissue, and muscle fascia, 65x20 cm Attending Surgeon(s): * Luanne Crawford - Primary Well Services Operator(s): * Kristy Fields MD - Resident - [...] anxiety, asthma, HLD, celiac disease, presenting to [facility] on 07[facility]08[facility]2025 as transfer with concern for [...] Anxiety, Asthma, Carpal tunnel syndrome, Depression, Diabetes ([facility]), H/O absence seizures, Hidradenitis, High cholesterol, [...] tunnel syndrome Chronic obstructive pulmonary disease, unspecified ([facility]/HCC) Overview Signed 08/31/2023 9:36 AM by Janell Bueno Last Assessment & Plan: Condition: stable Reviewed trigger avoidance and reviewed proper use of inhalers and rescue medications. Reviewed concerning signs/symptoms and ER precautions. Follow up in: three months Dehydration Hidradenitis suppurativa History of hysterectomy HTN (hypertension), benign Depression Morbid (severe) obesity due to excess calories ([facility]) Overview Signed 08/31/2023 9:36 AM by aJnell Bueno Assessment & Plan: Condition: stable Co-morbidities: [...] mL IVPB (vial adapter required) 2 g [id number] Deepthi Garcia MD linezolid (Zyvox) injection 600 [...] ppd), asthma, HLD, celiac disease, presenting to [facility] on 07/08/2025 as transfer with concern [...] Medication Administration from 07/08/2025 1600 to 07/08/2025 1956 Date/Time Order Dose Route Action 07/08/2025 1816 [...] 4% (Hibiclens). Acknowledged AMINA RAMIREZ 07/08/251916 Void cardiac sonographer to OR Once Acknowledged AMINA RAMIREZ 07/08/251916 Case Request Operating Room: IRRIGATION AND DEBRIDEMENT, WOUND Once Completed AMINA RAMIREZ 07/08/25 181 Once Canceled MY CHARLES 07/08/25 1816 Once Canceled DEEPTHI GARCIA 07/08/25 1809 CMP STAT Final result MY CHARLES 07/08/25 1809 CBC w/diff STAT Final result MY CHARLES 07/08/25 1809 PT-INR STAT Final result MY CHARLES 07/08/25 1809 Type and screen Start now Final result MY CHARLES 07/08/25 1809 Lactic acid, venous STAT Final result MY CHARLES 07/08/25 1809 C-Reactive protein STAT Final result MY CHARLES 07/08/25 1809 Blood Culture (Aerobic/Anaerobet Set) STAT Acknowledged MY CHARLES 07/08/25 180 Blood Culture (Aerobic/Anaerobet Set) STAT Acknowledged MY CHARLES 07/08/25 1809 Hepatitis C Antibody - ED Once Final result MY CHARLES 07/08/25 1809 ED Protocol - HIV 1/2 Antibody/Antigen Screen Once Final result MY CHARLES 07/08/25 1809 ED HIV 1/2 Antibody/Antigen Screen w/Reflex to HIV 1/2 Differentiation PROCEDURE ONCE Final result MY CHARLES 07/08/25 1808 Consult to Emergency General Surgery Once Provider: (Not yet assigned) Completed DEEPTHI GARCIA ED Course as of 07/09/25132Jul 08, 2025 181 Upon arrival patient was [...] elevated [MR] 1999 C-Reactive protein(!) elevated [MR] e Jul 09, 2025130 Blood cultures ordered and [...] None Disposition Admit Admitting/Attending Physician: LUANNE CRAWFORD [[id number]] Provider Care Team: E EMERGENCY GENERAL SURGERY [...] Visit Medical Office Building Urology [address], [address] [place] [address] Deepthi Matamoros, HUMAN FACTORS ADVISOR LEAD [address] [place] [address] Scheduled Referrals Name Type Priority Associated Diagnoses Order Schedule Discharge Ambulatory referral to NON Endocrinology Outpatient Referral Routine Morbid (severe) obesity due to excess calories ([facility]) Type 2 diabetes mellitus with hyperglycemia, without long-term current use of insulin ([facility]) Celiac disease Expected: 07/15/2025 (Approximate), [...] UNSOLICITED RESULTS Routine 07/11/2025 9:57 AM EDT [place] CRITICAL CARE, E/M 30-74 MINUTES Routine 07/11/2025 8:41 AM EDT Necrotizing fasciitis (CMS/HCC) Morbid (severe) obesity due to excess calories (CMS/HCC) Septic shock (CMS/HCC) Type 2 diabetes mellitus with hyperglycemia, without long-term current use of insulin ([facility]) Respiratory insufficiency POCT GLUCOSE METER UNSOLICITED [...] ECG ADULT STAT 07/10/2025 8:42 AM EDT [place] CRITICAL CARE, E/M 30-74 MINUTES Routine 07/10/2025 [...] CO2 MONITORING Routine 07/09/2025 8:00 AM EDT [place] CRITICAL CARE, E/M 30-74 MINUTES Routine 07/09/2025 [...] POCT glucose meter (07/19/2025 12:27 PM EDT) Pathologist [facility] POCT Glucose 197(H) 74 - 99 mg/dL [...] Comment 07/19/2025 5:32 PM EDT [facility]ARE [facility] Landing Scaler ID BaezLaura [email or web address] 025 5:32 PM EDT HEALTHCARE LAB Device ID [id number] 07/19/2025 5:32 PM EDT [facility] Specimen Type POC Capillary 07/19/2025 5:32 PM EDT [facility] Blood Capillary blood specimen / Unknown 07/19/2025 12:27 PM EDT 07/19/2025 5:32 PM EDT Anne Franco MD LAB POINT OF CARE TEST DOCKED DEVICE UNSOLICITED RESULTS Final Result [facility] [address] [place] [address] * Phosphorus (07/19/2025 4:28 AM EDT) Pathologist [facility] Phosphorus, Plasma 3.6 2.5 - 4.5 mg/dL 07/19/2025 5:03 AM EDT [facility] Blood Venous blood specimen / Unknown Venipuncture / Unknown 07/19/2025 4:28 AM EDT 07/19/2025 4:35 AM EDT us Anne Franco MD LAB BLOOD ORDERABLES Sarah l Result Performing Organization Address [facility]/ZIP Co de Phone Number [facility] [address] [place] [address] * (ABNORMAL) Magnesium (07/19/2025 4:28 AM EDT) Pathologist [facility] Magnesium, Plasma 1.8(L) 1.9 - 2.4 mg/dL 07/19/2025 5:03 AM EDT [facility] Blood Venous blood specimen / Unknown Venipuncture / Unknown 07/19/2025 4:28 AM EDT 07/19/2025 4:35 AM EDT us Anne Franco MD LAB BLOOD ORDERABLES Sarah l Result Performing Organization Address [facility] Co de Phone Number [facility] [address] [place] [address] * (ABNORMAL) CBC W/O Differential (07/19/2025 4:28 AM EDT) [facility] WBC Count 18.39(H) 3.70 - 10.30 10*3/uL LAB HEMATOLOGY METHOD 07/19/2025 4:51 AM EDT [facility] RBC Count 3.50(L) 3.90 - 5.20 10*6/uL LAB HEMATOLOGY METHOD 07/19/2025 4:51 AM EDT [facility] HGB 9.6(L) 11.2 - 15.7 g/dL LAB HEMATOLOGY METHOD 07/19/2025 4:51 AM EDT [facility] HCT 30.7(L) 34.0 - 45.0 % LAB HEMATOLOGY METHOD 07/19/2025 4:51 AM EDT [facility] Platelet Count 627(H) 155 - 369 10*3/uL LAB HEMATOLOGY METHOD 07/19/2025 4:51 AM EDT [facility] MCV 88 79 - 98 fL LAB HEMATOLOGY METHOD 07/19/2025 4:51 AM EDT [facility] MCH 27.4 26.0 - 32.0 pg LAB HEMATOLOGY METHOD 07/19/2025 4:51 AM EDT [facility] MCHC 31.3 30.7 - 35.5 g/dL LAB HEMATOLOGY METHOD 07/19/2025 4:51 AM EDT [facility] RDW 18.2(H) 11.5 - 14.5 % LAB HEMATOLOGY METHOD 07/19/2025 4:51 AM EDT [facility] MPV 10.2 8.8 - 12.5 fL LAB HEMATOLOGY METHOD 07/19/2025 4:51 AM EDT [facility] nRBC 0.1(H) <=0.0 per 100 WBCs LAB HEMATOLOGY METHOD 07/19/2025 4:51 AM EDT [facility] Blood Venous blood specimen / Unknown Venipuncture / Unknown 07/19/2025 4:28 AM EDT 07/19/2025 4:36 AM EDT us Anne Franco MD LAB BLOOD ORDERABLES Sarah bennett Result [facility] [address] [place] [address] * (ABNORMAL) Basic metabolic panel (07/19/2025 4:28 AM EDT) Glucose, Plasma 153(H) 74 - 99 mg/dL 07/19/2025 5:03 AM EDT [facility] BUN, Plasma 14 7 - 21 mg/dL 07/19/2025 5:03 AM EDT [facility] Creatinine, Plasma 0.73 0.60 - 1.10 mg/dL 07/19/2025 5:03 AM EDT [facility] BUN/Creatinine Ratio 19 07/19/2025 5:03 AM EDT [facility] Sodium, Plasma 137 136 - 145 mmol/L 07/19/2025 5:03 AM EDT [facility] Potassium, Plasma 4.3 3.6 - 4.9 mmol/L 07/19/2025 5:03 AM EDT [facility] Chloride, Plasma 97 97 - 107 mmol/L 07/19/2025 5:03 AM EDT [facility] CO2, Plasma 28 22 - 29 mmol/L 07/19/2025 5:03 AM EDT [facility] Anion Gap 12 6 - 16 mmol/L 07/19/2025 5:03 AM EDT [facility] Total Calcium, Plasma 9.0 8.9 - 10.2 mg/dL 07/19/2025 5:03 AM EDT [facility] eGFRcr 101.0 mL/min/1.7 3m*2 07/19/2025 5:03 AM EDT [facility] Comment:Reported eGFRcr in m L/min/1.73m2 is based the CKD-EPI 2020 equation that does not use a race coefficient. Blood Venous blood specimen / Unknown Venipuncture / Unknown 07/19/2025 4:28 AM EDT 07/19/2025 4:35 AM EDT us Anne Franco MD LAB BLOOD ORDERABLES Sarah bennett Result [facility] [address] [place] [address] * (ABNORMAL) POCT glucose meter (07/18/2025 8:33 [...] 07/18/2025 8:36 PM EDT [facility] Landing Scaler ID Zach Martinez 8:36 PM EDT [facility]ALTHCARE [facility] Device ID [id number] 07/18/2025 8:36 PM EDT [facility] LAB Specimen Type POC Capillary 07/18/2025 8:36 PM EDT [facility] Blood Capillary blood specimen / Unknown 07/18/2025 8:33 PM EDT 07/18/2025 8:36 PM EDT Anne Franco MD LAB POINT OF CARE TEST DOCKED DEVICE UNSOLICITED RESULTS Final Result Performing Organization Address [facility] Co de Phone Number [facility] [address] [place] [address] * (ABNORMAL) POCT glucose meter (07/18/2025 6:07 PM EDT) Pathologist [facility] POCT Glucose 222(H) 74 - [...] Comment 07/18/2025 6:08 PM EDT [facility] Landing Scaler ID Monique Jacques 6:08 PM EDT [facility]ALTH[facility]ARE LAB Device ID [id number] 07/18/2025 6:08 PM EDT [facility] Specimen Type POC Capillary 07/18/2025 6:08 PM EDT [facility] Blood Capillary blood specimen / Unknown 07/18/2025 6:07 PM EDT 07/18/2025 6:08 PM EDT Anne Franco MD LAB POINT OF CARE TEST DOCKED DEVICE UNSOLICITED RESULTS Final Result Performing Organization Address City/[facility]/ZIP Co de Phone Number [facility] [address] [place] [address] * (ABNORMAL) POCT glucose meter (07/18/2025 12:36 PM EDT) Pathologist [facility] POCT Glucose 151(H) 74 - [...] 07/18/2025 12:38 PM EDT [facility] Landing Scaler ID Laura Baez 025 12:38 PM EDT [facility] Device ID [id number] 07/18/2025 12:38 PM EDT [facility] Specimen Type POC Capillary 07/18/2025 12:38 PM EDT [facility] Blood Capillary blood specimen / Unknown 07/18/2025 12:36 PM EDT 07/18/2025 12:38 PM EDT Anne Franco MD LAB POINT OF CARE TEST DOCKED DEVICE UNSOLICITED RESULTS Final Result Performing Organization Address City/[facility] Co de Phone Number [facility] [address] [place] [address] * (ABNORMAL) POCT glucose meter (07/18/2025 8:39 [...] Comment 07/18/2025 8:41 AM EDT [facility] Landing Scaler ID Laura Baez 025 8:41 AM EDT HEALTHCARE LAB Device ID [id number] 07/18/2025 8:41 AM EDT [facility]ARE LAB Specimen Type POC Capillary 07/18/2025 8:41 AM EDT [facility] Blood Capillary blood specimen / Unknown 07/18/2025 8:39 AM EDT 07/18/2025 8:41 AM EDT us Anne Franco MD LAB POINT OF CARE TEST DOCKED DEVICE UNSOLICITED RESULTS Final Result Performing Organization Address City/[facility]/ZIP Co de Phone Number [facility] [address] [place] [address] * (ABNORMAL) Basic metabolic panel (07/18/2025 6:03 AM EDT) Glucose, Plasma 163(H) 74 - 99 mg/dL 07/18/2025 6:45 AM EDT [facility] BUN, Plasma 11 7 - 21 mg/dL 07/18/2025 6:45 AM EDT [facility] Creatinine, Plasma 0.65 0.60 - 1.10 mg/dL 07/18/2025 6:45 AM EDT [facility] BUN/Creatinine Ratio 17 07/18/2025 6:45 AM EDT [facility] Sodium, Plasma 138 136 - 145 mmol/L 07/18/2025 6:45 AM EDT [facility] Potassium, Plasma 3.8 3.6 - 4.9 mmol/L 07/18/2025 6:45 AM EDT [facility] Chloride, Plasma 99 97 - 107 mmol/L 07/18/2025 6:45 AM EDT [facility] CO2, Plasma 29 22 - 29 mmol/L 07/18/2025 6:45 AM EDT [facility] Anion Gap 10 6 - 16 mmol/L 07/18/2025 6:45 AM EDT [facility] Total Calcium, Plasma 8.5(L) 8.9 - 10.2 mg/dL 07/18/2025 6:45 AM EDT [facility] eGFRcr 108.1 mL/min/1.7 3m*2 07/18/2025 6:45 AM EDT [facility] Comment:Reported eGFRcr in m L/min/1.73m2 is based the CKD-EPI 2020 equation that does not use a race coefficient. Blood Venous blood specimen / Unknown Venipuncture / Unknown 07/18/2025 6:03 AM EDT 07/18/2025 6:12 AM EDT us Anne Franco MD LAB BLOOD ORDERABLES Sarah l Result [facility] [address] [place] [address] * (ABNORMAL) CBC W/O Differential (07/18/2025 6:03 AM EDT) WBC Count 16.76(H) 3.70 - 10.30 10*3/uL LAB HEMATOLOGY METHOD 07/18/2025 6:25 AM EDT [facility] RBC Count 3.25(L) 3.90 - 5.20 10*6/uL LAB HEMATOLOGY METHOD 07/18/2025 6:25 AM EDT [facility] HGB 9.1(L) 11.2 - 15.7 g/dL LAB HEMATOLOGY METHOD 07/18/2025 6:25 AM EDT [facility] HCT 28.8(L) 34.0 - 45.0 % LAB HEMATOLOGY METHOD 07/18/2025 6:25 AM EDT [facility] Platelet Count 523(H) 155 - 369 10*3/uL LAB HEMATOLOGY METHOD 07/18/2025 6:25 AM EDT [facility] MCV 89 79 - 98 fL LAB HEMATOLOGY METHOD 07/18/2025 6:25 AM EDT [facility] MCH 28.0 26.0 - 32.0 pg LAB HEMATOLOGY METHOD 07/18/2025 6:25 AM EDT [facility] MCHC 31.6 30.7 - 35.5 g/dL LAB HEMATOLOGY METHOD 07/18/2025 6:25 AM EDT [facility] RDW 17.6(H) 11.5 - 14.5 % LAB HEMATOLOGY METHOD 07/18/2025 6:25 AM EDT [facility] MPV 10.3 8.8 - 12.5 fL LAB HEMATOLOGY METHOD 07/18/2025 6:25 AM EDT [facility] nRBC 0.0 <=0.0 per 100 WBCs LAB HEMATOLOGY METHOD 07/18/2025 6:25 AM EDT [facility] Blood Venous blood specimen / Unknown Venipuncture / Unknown 07/18/2025 6:03 AM EDT 07/18/2025 6:12 AM EDT us Anne Franco MD LAB BLOOD ORDERABLES Sarah bennett Result [facility] [address] [place] [address] * (ABNORMAL) POCT glucose meter (07/17/2025 10:33 [...] Comment 07/17/2025 10:35 PM EDT [facility]ALTH[facility]ARE LAB Landing Scaler ID Tha, 07/17/2025 10:35 PM EDT HEALTHCARE LAB Device ID [id number] 07/17/2025 10:35 PM EDT [facility]ALTH[facility]ARE LAB Specimen Type POC Capillary 07/17/2025 10:35 PM EDT [facility] Blood Capillary blood specimen / Unknown 07/17/2025 10:33 PM EDT 07/17/2025 10:35 PM EDT Anne Franco MD LAB POINT OF CARE TEST DOCKED DEVICE UNSOLICITED RESULTS Final Result [facility] [address] [place] [address] * PERIPHERAL IV (SMARTFORM LINK) (07/17/2025 5:14 [...] POCT glucose meter (07/17/2025 5:10 PM EDT) [facility] POCT Glucose 115(H) 74 - 99 mg/dL [...] Comment 07/17/2025 5:12 PM EDT [facility]ALTH[facility] Landing Scaler ID Monique Jacques 5:12 PM EDT [facility]ALTH[facility]ARE LAB Device ID [id number] 07/17/2025 5:12 PM EDT [facility] Specimen Type POC Capillary 07/17/2025 5:12 PM EDT [facility] Blood Capillary blood specimen / Unknown 07/17/2025 5:10 PM EDT 07/17/2025 5:12 PM EDT Anne Franco MD LAB POINT OF CARE TEST DOCKED DEVICE UNSOLICITED RESULTS Final Result Performing Organization Address City/State/[facility] Co de Phone Number [facility] [address] [place] [address] * (ABNORMAL) POCT glucose meter (07/17/2025 12:06 PM EDT) [facility] POCT Glucose 211(H) 74 - 99 mg/dL [...] 07/17/2025 12:07 PM EDT [facility] Landing Scaler ID Josi Ann 12:07 PM EDT HEALTH[facility]ARE LAB Device ID [id number] 07/17/2025 12:07 PM EDT [facility]ARE LAB Specimen Type POC Capillary 07/17/2025 12:07 PM EDT [facility] Blood Capillary blood specimen / Unknown 07/17/2025 12:06 PM EDT 07/17/2025 12:07 PM EDT Anne Franco MD LAB POINT OF CARE TEST DOCKED DEVICE UNSOLICITED RESULTS Final Result [facility] [address] [place] [address] * US Extremity Limited MSK or Soft [...] by PCR (07/17/2025 10:14 AM EDT) Pathologist [facility] Methicillin Resistant Staphylococcus aureus (MRSA) by PCR Not Detected Not Detected 07/17/2025 12:11 PM EDT [facility] Swab Both anterior nares / Unknown Non-blood Collection / Unknown 07/17/2025 10:14 AM EDT 07/17/2025 10:33 AM EDT Narrative [facility] - 07/17/2025 12:11 PM EDT This [...] MICROBIOLOGY - GENERAL ORDER LUANNE Final Result [facility] [address] [place] [address] * (ABNORMAL) POCT glucose meter (07/17/2025 9:35 AM EDT) Pathologist [facility] POCT Glucose 139(H) 74 - 99 mg/dL 07/17/2025 9:37 AM EDT [facility] Comment:Accuracy of [...] Comment 07/17/2025 9:37 AM EDT [facility]ALTH[facility]ARE LAB Landing Scaler ID Josi Ann 9:37 AM EDT HEALTHCARE LAB Device ID [id number] 07/17/2025 9:37 AM EDT HEALTHCARE LAB Specimen Type POC Capillary 07/17/2025 9:37 AM EDT [facility]ALTH[facility]ARE LAB Blood Capillary blood specimen / Unknown 07/17/2025 9:35 AM EDT 07/17/2025 9:37 AM EDT us Anne Franco MD LAB POINT OF CARE TEST DOCKED DEVICE UNSOLICITED RESULTS Final Result [facility] [address] [place] [address] * (ABNORMAL) Basic metabolic panel (07/17/2025 5:20 AM EDT) Glucose, Plasma 140(H) 74 - 99 mg/dL 07/17/2025 5:56 AM EDT [facility] BUN, Plasma 8 7 - 21 mg/dL 07/17/2025 5:56 AM EDT [facility] Creatinine, Plasma 0.59(L) 0.60 - 1.10 mg/dL 07/17/2025 5:56 AM EDT [facility] BUN/Creatinine Ratio 14 07/17/2025 5:56 AM EDT [facility] Sodium, Plasma 139 136 - 145 mmol/L 07/17/2025 5:56 AM EDT [facility] Potassium, Plasma 3.8 3.6 - 4.9 mmol/L 07/17/2025 5:56 AM EDT [facility] Chloride, Plasma 97 97 - 107 mmol/L 07/17/2025 5:56 AM EDT [facility] CO2, Plasma 31(H) 22 - 29 mmol/L 07/17/2025 5:56 AM EDT [facility] Anion Gap 11 6 - 16 mmol/L 07/17/2025 5:56 AM EDT [facility] Total Calcium, Plasma 8.6(L) 8.9 - 10.2 mg/dL 07/17/2025 5:56 AM EDT [facility] eGFRcr 110.6 mL/min/1.7 3m*2 07/17/2025 5:56 AM EDT [facility] Comment:Reported eGFRcr in m L/min/1.73m2 is based the CKD-EPI 2020 equation that does not use a race coefficient. Blood Venous blood specimen / Unknown Venipuncture / Unknown 07/17/2025 5:20 AM EDT 07/17/2025 5:27 AM EDT us Anne Franco MD LAB BLOOD ORDERABLES Sarah l Result [facility] [address] [place] [address] * Phosphorus, Plasma (07/17/2025 5:20 AM EDT) Phosphorus, Plasma 3.0 2.5 - 4.5 mg/dL 07/17/2025 5:56 AM EDT [facility] Blood Venous blood specimen / Unknown Venipuncture / Unknown 07/17/2025 5:20 AM EDT 07/17/2025 5:27 AM EDT Result Shawn Franco MD LAB BLOOD ORDERABLES Sarah l Result Performing Organization Address City/[facility]/ZIP Co de Phone Number [facility] [address] [place] [address] * (ABNORMAL) Magnesium, Plasma (07/17/2025 5:20 AM EDT) Magnesium, Plasma 1.8(L) 1.9 - 2.4 mg/dL 07/17/2025 5:56 AM EDT [facility] Blood Venous blood specimen / Unknown Venipuncture / Unknown 07/17/2025 5:20 AM EDT 07/17/2025 5:27 AM EDT us Anne Franco MD LAB BLOOD ORDERABLES Sarah l Result [facility] [address] [place] [address] * (ABNORMAL) CBC W/O Differential (07/17/2025 5:20 AM EDT) WBC Count 22.29(H) 3.70 - 10.30 10*3/uL LAB HEMATOLOGY METHOD 07/17/2025 5:37 AM EDT [facility] RBC Count 3.36(L) 3.90 - 5.20 10*6/uL LAB HEMATOLOGY METHOD 07/17/2025 5:37 AM EDT [facility] HGB 9.2(L) 11.2 - 15.7 g/dL LAB HEMATOLOGY METHOD 07/17/2025 5:37 AM EDT [facility] HCT 29.4(L) 34.0 - 45.0 % LAB HEMATOLOGY METHOD 07/17/2025 5:37 AM EDT [facility] Platelet Count 484(H) 155 - 369 10*3/uL LAB HEMATOLOGY METHOD 07/17/2025 5:37 AM EDT [facility] MCV 88 79 - 98 fL LAB HEMATOLOGY METHOD 07/17/2025 5:37 AM EDT [facility] MCH 27.4 26.0 - 32.0 pg LAB HEMATOLOGY METHOD 07/17/2025 5:37 AM EDT [facility] MCHC 31.3 30.7 - 35.5 g/dL LAB HEMATOLOGY METHOD 07/17/2025 5:37 AM EDT [facility] RDW 17.3(H) 11.5 - 14.5 % LAB HEMATOLOGY METHOD 07/17/2025 5:37 AM EDT [facility] MPV 10.4 8.8 - 12.5 fL LAB HEMATOLOGY METHOD 07/17/2025 5:37 AM EDT [facility] nRBC 0.1(H) <=0.0 per 100 WBCs LAB HEMATOLOGY METHOD 07/17/2025 5:37 AM EDT [facility] Blood Venous blood specimen / Unknown Venipuncture / Unknown 07/17/2025 5:20 AM EDT 07/17/2025 5:27 AM EDT us Anne Franco MD LAB BLOOD ORDERABLES Sarah bennett Result [facility] [address] [place] [address] * (ABNORMAL) POCT glucose meter (07/16/2025 8:24 [...] Comment 07/16/2025 8:26 PM EDT [facility]ALTHCARE LAB Landing Scaler ID Lacie Marcelo 07/16/20 8:26 PM EDT HEALTHCARE LAB Device ID [id number] 07/16/2025 8:26 PM EDT HEALTHCARE LAB Specimen Type POC Capillary 07/16/2025 8:26 PM EDT [facility] Blood Capillary blood specimen / Unknown 07/16/2025 8:24 PM EDT 07/16/2025 8:26 PM EDT Anne Franco MD LAB POINT OF CARE TEST DOCKED DEVICE UNSOLICITED RESULTS Final Result [facility] [address] [place] [address] * (ABNORMAL) POCT glucose meter (07/16/2025 5:34 PM EDT) [facility] POCT Glucose 190(H) 74 - 99 mg/dL [...] 07/16/2025 5:36 PM EDT [facility] Landing Scaler ID Diego Munroe 07/16/20 5:36 PM EDT [facility] Device ID [id number] 07/16/2025 5:36 PM EDT [facility] Specimen Type POC Capillary 07/16/2025 5:36 PM EDT [facility]ALTH[facility]ARE LAB Blood Capillary blood specimen / Unknown 07/16/2025 5:34 PM EDT 07/16/2025 5:36 PM EDT Anne Franco MD LAB POINT OF CARE TEST DOCKED DEVICE UNSOLICITED RESULTS Final Result Performing Organization Address City/[facility] Co de Phone Number HEALTHCARE LAB [address] [place] [address] * (ABNORMAL) POCT glucose meter (07/16/2025 12:06 [...] Comment 07/16/2025 12:08 PM EDT [facility]ALTHCARE LAB Landing Scaler ID Diego Munroe 07/16/20 25 12:08 PM EDT HEALTHCARE LAB Device ID [id number] 07/16/2025 12:08 PM EDT HEALTHCARE LAB Specimen Type POC Capillary 07/16/2025 12:08 PM EDT [facility] LAB Blood Capillary blood specimen / Unknown 07/16/2025 12:06 PM EDT 07/16/2025 12:08 PM EDT Anne Franco MD LAB POINT OF CARE TEST DOCKED DEVICE UNSOLICITED RESULTS Final Result Performing Organization Address City/[facility] Co de Phone Number [facility]ARE LAB [address] [place] [address] * XR Chest 1 View (07/16/2025 11:25 [...] POCT glucose meter (07/16/2025 8:22 AM EDT) [facility] POCT Glucose 172(H) 74 - 99 mg/dL [...] Comment 07/16/2025 8:24 AM EDT HEALTHCARE LAB Landing Scaler ID Diego Munroe 07/16/20 8:24 AM EDT HEALTHCARE LAB Device ID [id number] 07/16/2025 8:24 AM EDT HEALTHCARE LAB Specimen Type POC Capillary 07/16/2025 8:24 AM EDT [facility]ALTH[facility]ARE LAB Blood Capillary blood specimen / Unknown 07/16/2025 8:22 AM EDT 07/16/2025 8:24 AM EDT Anne Franco MD LAB POINT OF CARE TEST DOCKED DEVICE UNSOLICITED RESULTS Final Result Performing Organization Address City/[facility]/ZIP Co de Phone Number [facility] [address] [place] [address] * Phosphorus (07/16/2025 5:25 AM EDT) [facility] Phosphorus, Plasma 2.8 2.5 - 4.5 mg/dL 07/16/2025 7:12 AM EDT [facility] Blood Venous blood specimen / Unknown Venipuncture / Unknown 07/16/2025 5:25 AM EDT 07/16/2025 5:33 AM EDT Anne Franco MD LAB BLOOD ORDERABLES Sarah l Result [facility] [address] [place] [address] * (ABNORMAL) Magnesium (07/16/2025 5:25 AM EDT) [facility] Magnesium, Plasma 1.8(L) 1.9 - 2.4 mg/dL 07/16/2025 7:12 AM EDT [facility] Blood Venous blood specimen / Unknown Venipuncture / Unknown 07/16/2025 5:25 AM EDT 07/16/2025 5:33 AM EDT us Anne Franco MD LAB BLOOD ORDERABLES Sarah sabrina Result [facility] [address] [place] [address] * (ABNORMAL) Basic metabolic panel (07/16/2025 5:25 AM EDT) Glucose, Plasma 149(H) 74 - 99 mg/dL 07/16/2025 6:01 AM EDT [facility] BUN, Plasma 9 7 - 21 mg/dL 07/16/2025 6:01 AM EDT [facility] Creatinine, Plasma 0.48(L) 0.60 - 1.10 mg/dL 07/16/2025 6:01 AM EDT [facility] BUN/Creatinine Ratio 19 07/16/2025 6:01 AM EDT [facility] Sodium, Plasma 140 136 - 145 mmol/L 07/16/2025 6:01 AM EDT [facility] Potassium, Plasma 3.4(L) 3.6 - 4.9 mmol/L 07/16/2025 6:01 AM EDT [facility] Chloride, Plasma 99 97 - 107 mmol/L 07/16/2025 6:01 AM EDT [facility] CO2, Plasma 31(H) 22 - 29 mmol/L 07/16/2025 6:01 AM EDT [facility] Anion Gap 10 6 - 16 mmol/L 07/16/2025 6:01 AM EDT [facility] Total Calcium, Plasma 8.6(L) 8.9 - 10.2 mg/dL 07/16/2025 6:01 AM EDT [facility] eGFRcr 116.3 mL/min/1.7 3m*2 07/16/2025 6:01 AM EDT [facility] Comment:Reported eGFRcr in m L/min/1.73m2 is based the CKD-EPI 2020 equation that does not use a race coefficient. Blood Venous blood specimen / Unknown Venipuncture / Unknown 07/16/2025 5:25 AM EDT 07/16/2025 5:33 AM EDT us Anne Franco MD LAB BLOOD ORDERABLES Sarah sabrina Result [facility] [address] [place] [address] * (ABNORMAL) CBC W/O Differential (07/16/2025 5:25 AM EDT) WBC Count 22.22(H) 3.70 - 10.30 10*3/uL LAB HEMATOLOGY METHOD 07/16/2025 5:41 AM EDT [facility] RBC Count 3.30(L) 3.90 - 5.20 10*6/uL LAB HEMATOLOGY METHOD 07/16/2025 5:41 AM EDT [facility] HGB 8.9(L) 11.2 - 15.7 g/dL LAB HEMATOLOGY METHOD 07/16/2025 5:41 AM EDT [facility] HCT 28.9(L) 34.0 - 45.0 % LAB HEMATOLOGY METHOD 07/16/2025 5:41 AM EDT [facility] Platelet Count 376(H) 155 - 369 10*3/uL LAB HEMATOLOGY METHOD 07/16/2025 5:41 AM EDT [facility] MCV 88 79 - 98 fL LAB HEMATOLOGY METHOD 07/16/2025 5:41 AM EDT [facility] MCH 27.0 26.0 - 32.0 pg LAB HEMATOLOGY METHOD 07/16/2025 5:41 AM EDT [facility] MCHC 30.8 30.7 - 35.5 g/dL LAB HEMATOLOGY METHOD 07/16/2025 5:41 AM EDT [facility] RDW 17.2(H) 11.5 - 14.5 % LAB HEMATOLOGY METHOD 07/16/2025 5:41 AM EDT [facility] MPV 10.3 8.8 - 12.5 fL LAB HEMATOLOGY METHOD 07/16/2025 5:41 AM EDT [facility] nRBC 0.1(H) <=0.0 per 100 WBCs LAB HEMATOLOGY METHOD 07/16/2025 5:41 AM EDT [facility] Blood Venous blood specimen / Unknown Venipuncture / Unknown 07/16/2025 5:25 AM EDT 07/16/2025 5:33 AM EDT Anne Franco MD LAB BLOOD ORDERABLES Sarah l Result [facility] [address] [place] [address] * (ABNORMAL) POCT glucose meter (07/15/2025 9:38 [...] Comment 07/15/2025 9:39 PM EDT HEALTHCARE LAB Landing Scaler ID Yessenia Ramirez 9:39 PM EDT HEALTHCARE LAB Device ID [id number] 07/15/2025 9:39 PM EDT HEALTHCARE LAB Specimen Type POC Capillary 07/15/2025 9:39 PM EDT [facility] Blood Capillary blood specimen / Unknown 07/15/2025 9:38 PM EDT 07/15/2025 9:39 PM EDT us Anne Franco MD LAB POINT OF CARE TEST DOCKED DEVICE UNSOLICITED RESULTS Final Result [facility] [address] [place] [address] * (ABNORMAL) POCT glucose meter (07/15/2025 6:03 [...] 07/15/2025 6:04 PM EDT [facility] Landing Scaler ID Venessa Amin 07/15/2025 6:04 PM EDT [facility] Device ID [id number] 07/15/2025 6:04 PM EDT HEALTHCARE LAB Specimen Type POC Capillary 07/15/2025 6:04 PM EDT HEALTH[facility]ARE LAB Blood Capillary blood specimen / Unknown 07/15/2025 6:03 PM EDT 07/15/2025 6:04 PM EDT us Anne Franco MD LAB POINT OF CARE TEST DOCKED DEVICE UNSOLICITED RESULTS Final Result Performing Organization Address City/State/[facility] Co de Phone Number HEALTHCARE LAB [address] [place] [address] * (ABNORMAL) POCT glucose meter (07/15/2025 12:38 PM EDT) [facility] POCT Glucose 153(H) 74 - 99 mg/dL [...] 07/15/2025 12:40 PM EDT [facility] Landing Scaler ID Venessa Amin 07/15/2025 12:40 PM EDT [facility] Device ID [id number] 07/15/2025 12:40 PM EDT [facility] Specimen Type POC Capillary 07/15/2025 12:40 PM EDT [facility]ALTH[facility] LAB Blood Capillary blood specimen / Unknown 07/15/2025 12:38 PM EDT 07/15/2025 12:40 PM EDT Anne Franco MD LAB POINT OF CARE TEST DOCKED DEVICE UNSOLICITED RESULTS Final Result Performing Organization Address City/[facility] Co de Phone Number HE[facility]ARE LAB [address] [place] [address] * (ABNORMAL) POCT glucose meter (07/15/2025 8:38 [...] Comment 07/15/2025 8:39 AM EDT HEALTHCARE LAB Landing Scaler ID Venessa Amin 07/15/2025 8:39 AM EDT HEALTHCARE LAB Device ID [id number] 07/15/2025 8:39 AM EDT [facility] Specimen Type POC Capillary 07/15/2025 8:39 AM EDT [facility] Blood Capillary blood specimen / Unknown 07/15/2025 8:38 AM EDT 07/15/2025 8:39 AM EDT Anne Franco MD LAB POINT OF CARE TEST DOCKED DEVICE UNSOLICITED RESULTS Final Result Performing Organization Address City/[facility]/ZIP Co de Phone Number HEALTHCARE LAB [address] [place] [address] * (ABNORMAL) Phosphorus (07/15/2025 4:50 AM EDT) Phosphorus, Plasma 2.3(L) 2.5 - 4.5 mg/dL 07/15/2025 7:33 AM EDT [facility] Blood Venous blood specimen / Unknown Venipuncture / Unknown 07/15/2025 4:50 AM EDT 07/15/2025 4:59 AM EDT us Anne Franco MD LAB BLOOD ORDERABLES Sarah l Result [facility] [address] [place] [address] * Magnesium (07/15/2025 4:50 AM EDT) Magnesium, Plasma 1.9 1.9 - 2.4 mg/dL 07/15/2025 7:33 AM EDT [facility] Blood Venous blood specimen / Unknown Venipuncture / Unknown 07/15/2025 4:50 AM EDT 07/15/2025 4:59 AM EDT Anne Franco MD LAB BLOOD ORDERABLES Sarah l Result Performing Organization Address [facility]/ZIP Co de Phone Number [facility] [address] [place] [address] * (ABNORMAL) Basic metabolic panel (07/15/2025 4:50 AM EDT) Glucose, Plasma 150(H) 74 - 99 mg/dL 07/15/2025 5:31 AM EDT [facility] BUN, Plasma 11 7 - 21 mg/dL 07/15/2025 5:31 AM EDT [facility] Creatinine, Plasma 0.54(L) 0.60 - 1.10 mg/dL 07/15/2025 5:31 AM EDT [facility] BUN/Creatinine Ratio 20 07/15/2025 5:31 AM EDT [facility] Sodium, Plasma 136 136 - 145 mmol/L 07/15/2025 5:31 AM EDT [facility] Potassium, Plasma 4.1 3.6 - 4.9 mmol/L 07/15/2025 5:31 AM EDT [facility] Chloride, Plasma 95(L) 97 - 107 mmol/L 07/15/2025 5:31 AM EDT [facility] CO2, Plasma 32(H) 22 - 29 mmol/L 07/15/2025 5:31 AM EDT [facility] Anion Gap 9 6 - 16 mmol/L 07/15/2025 5:31 AM EDT [facility] Total Calcium, Plasma 8.8(L) 8.9 - 10.2 mg/dL 07/15/2025 5:31 AM EDT [facility] eGFRcr 113.0 mL/min/1.7 3m*2 07/15/2025 5:31 AM EDT [facility] Comment:Reported eGFRcr in m L/min/1.73m2 is based the CKD-EPI 2020 equation that does not use a race coefficient. Blood Venous blood specimen / Unknown Venipuncture / Unknown 07/15/2025 4:50 AM EDT 07/15/2025 4:59 AM EDT us Anne Franco MD LAB BLOOD ORDERABLES Sarah l Result Performing Organization Address City/[facility]/ZIP Co de Phone Number [facility] [address] [place] [address] * (ABNORMAL) POCT glucose meter (07/14/2025 7:57 [...] Comment 07/14/2025 7:58 PM EDT HEALTHCARE LAB Landing Scaler ID Bernard Chirinos 07/14/20 7:58 PM EDT HEALTHCARE LAB Device ID [id number] 07/14/2025 7:58 PM EDT HEALTHCARE LAB Specimen Type POC Capillary 07/14/2025 7:58 PM EDT HEALTH[facility]ARE LAB Blood Capillary blood specimen / Unknown 07/14/2025 7:57 PM EDT 07/14/2025 7:58 PM EDT us Anne Franco MD LAB POINT OF CARE TEST DOCKED DEVICE UNSOLICITED RESULTS Final Result [facility] [address] [place] [address] * (ABNORMAL) POCT glucose meter (07/14/2025 4:56 PM EDT) [facility] POCT Glucose 154(H) 74 - 99 mg/dL [...] 07/14/2025 4:58 PM EDT [facility] Landing Scaler ID Riana Higgins 07/14/2025 4:58 PM EDT [facility] Device ID [id number] 07/14/2025 4:58 PM EDT [facility] Specimen Type POC Capillary 07/14/2025 4:58 PM EDT [facility] Blood Capillary blood specimen / Unknown 07/14/2025 4:56 PM EDT 07/14/2025 4:58 PM EDT Anne Franco MD LAB POINT OF CARE TEST DOCKED DEVICE UNSOLICITED RESULTS Final Result [facility] [address] [place] [address] * (ABNORMAL) POCT glucose meter (07/14/2025 12:38 PM EDT) [facility] POCT Glucose 143(H) 74 - 99 mg/dL [...] 07/14/2025 12:39 PM EDT [facility] Landing Scaler ID Laura Baez 025 12:39 PM EDT [facility] Device ID [id number] 07/14/2025 12:39 PM EDT HEALTHCARE LAB Specimen Type POC Capillary 07/14/2025 12:39 PM EDT [facility]ALTH[facility] LAB Blood Capillary blood specimen / Unknown 07/14/2025 12:38 PM EDT 07/14/2025 12:39 PM EDT us Anne Franco MD LAB POINT OF CARE TEST DOCKED DEVICE UNSOLICITED RESULTS Final Result [facility] [address] [place] [address] * (ABNORMAL) Basic metabolic panel (07/14/2025 9:36 AM EDT) Glucose, Plasma 191(H) 74 - 99 mg/dL 07/14/2025 10:15 AM EDT [facility] BUN, Plasma 16 7 - 21 mg/dL 07/14/2025 10:15 AM EDT [facility] Creatinine, Plasma 0.61 0.60 - 1.10 mg/dL 07/14/2025 10:15 AM EDT [facility] BUN/Creatinine Ratio 26 07/14/2025 10:15 AM EDT [facility] Sodium, Plasma 138 136 - 145 mmol/L 07/14/2025 10:15 AM EDT [facility] Potassium, Plasma 3.2(L) 3.6 - 4.9 mmol/L 07/14/2025 10:15 AM EDT [facility] Chloride, Plasma 96(L) 97 - 107 mmol/L 07/14/2025 10:15 AM EDT [facility] CO2, Plasma 33(H) 22 - 29 mmol/L 07/14/2025 10:15 AM EDT [facility] Anion Gap 9 6 - 16 mmol/L 07/14/2025 10:15 AM EDT [facility] Total Calcium, Plasma 8.7(L) 8.9 - 10.2 mg/dL 07/14/2025 10:15 AM EDT [facility] eGFRcr 109.8 mL/min/1.7 3m*2 07/14/2025 10:15 AM EDT [facility] Comment:Reported eGFRcr in m L/min/1.73m2 is based the CKD-EPI 2020 equation that does not use a race coefficient. Blood Venous blood specimen / Unknown Venipuncture / Unknown 07/14/2025 9:36 AM EDT 07/14/2025 9:44 AM EDT us Anne Franco MD LAB BLOOD ORDERABLES Sarah l Result Performing Organization Address City/[facility]/ZIP Co de Phone Number [facility] [address] [place] [address] * (ABNORMAL) Magnesium, Plasma (07/14/2025 9:36 AM EDT) Magnesium, Plasma 1.7(L) 1.9 - 2.4 mg/dL 07/14/2025 10:15 AM EDT [facility] Blood Venous blood specimen / Unknown Venipuncture / Unknown 07/14/2025 9:36 AM EDT 07/14/2025 9:44 AM EDT us Anne Franco MD LAB BLOOD ORDERABLES Sarah l Result Performing Organization Address [facility] Co de Phone Number [facility] [address] [place] [address] * (ABNORMAL) Phosphorus, Plasma (07/14/2025 9:36 AM EDT) Phosphorus, Plasma 2.2(L) 2.5 - 4.5 mg/dL 07/14/2025 10:15 AM EDT [facility] Blood Venous blood specimen / Unknown Venipuncture / Unknown 07/14/2025 9:36 AM EDT 07/14/2025 9:44 AM EDT us Anne Franco MD LAB BLOOD ORDERABLES Sarah l Result Performing Organization Address City/[facility] Co de Phone Number [facility] [address] [place] [address] * (ABNORMAL) CBC W/O Differential (07/14/2025 9:36 AM EDT) [facility] WBC Count 21.20(H) 3.70 - 10.30 10*3/uL LAB HEMATOLOGY METHOD 07/14/2025 9:52 AM EDT [facility] RBC Count 3.37(L) 3.90 - 5.20 10*6/uL LAB HEMATOLOGY METHOD 07/14/2025 9:52 AM EDT [facility] HGB 9.2(L) 11.2 - 15.7 g/dL LAB HEMATOLOGY METHOD 07/14/2025 9:52 AM EDT [facility] HCT 29.4(L) 34.0 - 45.0 % LAB HEMATOLOGY METHOD 07/14/2025 9:52 AM EDT [facility] Platelet Count 314 155 - 369 10*3/uL LAB HEMATOLOGY METHOD 07/14/2025 9:52 AM EDT [facility] MCV 87 79 - 98 fL LAB HEMATOLOGY METHOD 07/14/2025 9:52 AM EDT [facility] MCH 27.3 26.0 - 32.0 pg LAB HEMATOLOGY METHOD 07/14/2025 9:52 AM EDT [facility] MCHC 31.3 30.7 - 35.5 g/dL LAB HEMATOLOGY METHOD 07/14/2025 9:52 AM EDT [facility] RDW 17.2(H) 11.5 - 14.5 % LAB HEMATOLOGY METHOD 07/14/2025 9:52 AM EDT [facility] MPV 10.2 8.8 - 12.5 fL LAB HEMATOLOGY METHOD 07/14/2025 9:52 AM EDT [facility] nRBC 0.1(H) <=0.0 per 100 WBCs LAB HEMATOLOGY METHOD 07/14/2025 9:52 AM EDT [facility] Blood Venous blood specimen / Unknown Venipuncture / Unknown 07/14/2025 9:36 AM EDT 07/14/2025 9:44 AM EDT us Anne Franco MD LAB BLOOD ORDERABLES Sarah bennett Result [facility] [address] [place] [address] * (ABNORMAL) POCT glucose meter (07/14/2025 8:39 [...] Comment 07/14/2025 8:41 AM EDT [facility] Landing Scaler ID Laura Baez [id number] 8:41 AM EDT [facility] Device ID [id number] 07/14/2025 8:41 AM EDT [facility] Specimen Type POC Capillary 07/14/2025 8:41 AM EDT [facility] Blood Capillary blood specimen / Unknown 07/14/2025 8:39 AM EDT 07/14/2025 8:41 AM EDT Anne Franco MD LAB POINT OF CARE TEST DOCKED DEVICE UNSOLICITED RESULTS Final Result Performing Organization Address City/State/[facility] Co de Phone Number [facility] [address] [place] [address] * (ABNORMAL) POCT glucose meter (07/14/2025 6:18 AM EDT) Pathologist [facility] POCT Glucose 178(H) 74 - 99 [...] 07/14/2025 6:20 AM EDT [facility] Landing Scaler ID Rita Alejandro 6:20 AM EDT [facility] Device ID [id number] 07/14/2025 6:20 AM EDT [facility]ALTHCARE LAB Specimen Type POC Capillary 07/14/2025 6:20 AM EDT [facility] Blood Capillary blood specimen / Unknown 07/14/2025 6:18 AM EDT 07/14/2025 6:20 AM EDT Anne Franco MD LAB POINT OF CARE TEST DOCKED DEVICE UNSOLICITED RESULTS Final Result Performing Organization Address City/[facility]/ZIP Co de Phone Number [facility] [address] [place] [address] * (ABNORMAL) POCT glucose meter (07/13/2025 9:18 [...] Comment 07/13/2025 9:19 PM EDT [facility] Landing Scaler ID Yenny Tong 025 9:19 PM EDT HEALTHCARE LAB Device ID [id number] 07/13/2025 9:19 PM EDT HEALTHCARE LAB Specimen Type POC Capillary 07/13/2025 9:19 PM EDT [facility] Blood Capillary blood specimen / Unknown 07/13/2025 9:18 PM EDT 07/13/2025 9:19 PM EDT us Anne Franco MD LAB POINT OF CARE TEST DOCKED DEVICE UNSOLICITED RESULTS Final Result Performing Organization Address City/[facility]/ZIP Co de Phone Number [facility] [address] [place] [address] * (ABNORMAL) POCT glucose meter (07/13/2025 6:01 [...] Comment 07/13/2025 6:02 PM EDT [facility] Landing Scaler ID Laura Baez 025 6:02 PM EDT HEALTHCARE LAB Device ID [id number] 07/13/2025 6:02 PM EDT [facility] Specimen Type POC Capillary 07/13/2025 6:02 PM EDT [facility] Blood Capillary blood specimen / Unknown 07/13/2025 6:01 PM EDT 07/13/2025 6:02 PM EDT us Anne Franco MD LAB POINT OF CARE TEST DOCKED DEVICE UNSOLICITED RESULTS Final Result Performing Organization Address City/State/[facility] Co de Phone Number [facility] [address] [place] [address] * (ABNORMAL) POCT glucose meter (07/13/2025 12:12 [...] 07/13/2025 12:14 PM EDT [facility] Landing Scaler ID Laura Baez 025 12:14 PM EDT [facility] Device ID [id number] 07/13/2025 12:14 PM EDT HEALTHCARE LAB Specimen Type POC Capillary 07/13/2025 12:14 PM EDT [facility] Blood Capillary blood specimen / Unknown 07/13/2025 12:12 PM EDT 07/13/2025 12:14 PM EDT us Anne Franco MD LAB POINT OF CARE TEST DOCKED DEVICE UNSOLICITED RESULTS Final Result Performing Organization Address [facility] Co de Phone Number [facility] [address] [place] [address] * (ABNORMAL) Phosphorus (07/13/2025 10:21 AM EDT) Phosphorus, Plasma 2.2(L) 2.5 - 4.5 mg/dL 07/13/2025 11:23 AM EDT [facility] Blood Venous blood specimen / Unknown Venipuncture / Unknown 07/13/2025 10:21 AM EDT 07/13/2025 10:31 AM EDT Luanne Crawford MD LAB BLOOD ORDERABLES Final Result Performing Organization Address [facility] de Phone Number [facility] [address] [place] [address] * (ABNORMAL) Magnesium, Plasma (07/13/2025 10:21 AM EDT) Magnesium, Plasma 1.7(L) 1.9 - 2.4 mg/dL 07/13/2025 11:23 AM EDT [facility] Blood Venous blood specimen / Unknown Venipuncture / Unknown 07/13/2025 10:21 AM EDT 07/13/2025 10:31 AM EDT Luanne Crawford MD LAB BLOOD ORDERABLES Final Result Performing Organization Address City/[facility] Co de Phone Number [facility] [address] [place] [address] * (ABNORMAL) Basic Metabolic Panel, Plasma (07/13/2025 10:21 AM EDT) Glucose, Plasma 135(H) 74 - 99 mg/dL 07/13/2025 11:23 AM EDT [facility] BUN, Plasma 22(H) 7 - 21 mg/dL 07/13/2025 11:23 AM EDT [facility] Creatinine, Plasma 0.62 0.60 - 1.10 mg/dL 07/13/2025 11:23 AM EDT [facility] BUN/Creatinine Ratio 35 07/13/2025 11:23 AM EDT [facility] Sodium, Plasma 138 136 - 145 mmol/L 07/13/2025 11:23 AM EDT [facility] Potassium, Plasma 3.7 3.6 - 4.9 mmol/L 07/13/2025 11:23 AM EDT [facility] Chloride, Plasma 95(L) 97 - 107 mmol/L 07/13/2025 11:23 AM EDT [facility] CO2, Plasma 30(H) 22 - 29 mmol/L 07/13/2025 11:23 AM EDT [facility] Anion Gap 13 6 - 16 mmol/L 07/13/2025 11:23 AM EDT [facility] Total Calcium, Plasma 9.0 8.9 - 10.2 mg/dL 07/13/2025 11:23 AM EDT [facility] eGFRcr 109.3 mL/min/1.7 3m*2 07/13/2025 11:23 AM EDT [facility] Comment:Reported eGFRcr in m L/min/1.73m2 is based the CKD-EPI 2020 equation that does not use a race coefficient. Blood Venous blood specimen / Unknown Venipuncture / Unknown 07/13/2025 10:21 AM EDT 07/13/2025 10:31 AM EDT us Luanne Crawford MD LAB BLOOD ORDERABLES Final Result [facility] [address] [place] [address] * (ABNORMAL) CBC W/O Differential (07/13/2025 10:21 AM EDT) WBC Count 19.56(H) 3.70 - 10.30 10*3/uL LAB HEMATOLOGY METHOD 07/13/2025 10:59 AM EDT [facility] RBC Count 3.67(L) 3.90 - 5.20 10*6/uL LAB HEMATOLOGY METHOD 07/13/2025 10:59 AM EDT [facility] HGB 10.2(L) 11.2 - 15.7 g/dL LAB HEMATOLOGY METHOD 07/13/2025 10:59 AM EDT [facility] HCT 32.3(L) 34.0 - 45.0 % LAB HEMATOLOGY METHOD 07/13/2025 10:59 AM EDT [facility] Platelet Count 296 155 - 369 10*3/uL LAB HEMATOLOGY METHOD 07/13/2025 10:59 AM EDT [facility] MCV 88 79 - 98 fL LAB HEMATOLOGY METHOD 07/13/2025 10:59 AM EDT [facility] MCH 27.8 26.0 - 32.0 pg LAB HEMATOLOGY METHOD 07/13/2025 10:59 AM EDT [facility] MCHC 31.6 30.7 - 35.5 g/dL LAB HEMATOLOGY METHOD 07/13/2025 10:59 AM EDT [facility] RDW 17.6(H) 11.5 - 14.5 % LAB HEMATOLOGY METHOD 07/13/2025 10:59 AM EDT [facility] MPV 10.3 8.8 - 12.5 fL LAB HEMATOLOGY METHOD 07/13/2025 10:59 AM EDT [facility] nRBC 0.0 <=0.0 per 100 WBCs LAB HEMATOLOGY METHOD 07/13/2025 10:59 AM EDT [facility] Blood Venous blood specimen / Unknown Venipuncture / Unknown 07/13/2025 10:21 AM EDT 07/13/2025 10:31 AM EDT us Luanne Crawford MD LAB BLOOD ORDERABLES Final Result [facility] [address] [place] [address] * (ABNORMAL) POCT glucose meter (07/13/2025 8:50 AM EDT) [facility] POCT Glucose 102(H) 74 - 99 mg/dL 07/13/2025 8:53 AM EDT [facility] Comment:Accuracy of a glucos e [...] Comment 07/13/2025 8:53 AM EDT HEALTHCARE LAB Landing Scaler ID Laura Baez 025 8:53 AM EDT HEALTHCARE LAB Device ID [id number] 07/13/2025 8:53 AM EDT [facility]ALTHCARE LAB Specimen Type POC Capillary 07/13/2025 8:53 AM EDT [facility] Blood Capillary blood specimen / Unknown 07/13/2025 8:50 AM EDT 07/13/2025 8:53 AM EDT us Anne Franco MD LAB POINT OF CARE TEST DOCKED DEVICE UNSOLICITED RESULTS Final Result Performing Organization Address [facility] Co de Phone Number [facility] [address] [place] [address] * (ABNORMAL) POCT glucose meter (07/13/2025 6:11 [...] Comment 07/13/2025 6:13 AM EDT [facility]ALTHCARE LAB Landing Scaler ID Rita Alejandro 6:13 AM EDT [facility]ALTH[facility]ARE [facility] Device ID [id number] 07/13/2025 6:13 AM EDT [facility]ALTH[facility]ARE LAB Specimen Type POC Capillary 07/13/2025 6:13 AM EDT [facility] Blood Capillary blood specimen / Unknown 07/13/2025 6:11 AM EDT 07/13/2025 6:13 AM EDT us Anne Franco MD LAB POINT OF CARE TEST DOCKED DEVICE UNSOLICITED RESULTS Final Result Performing Organization Address City/[facility]/ZIP Co de Phone Number [facility] [address] [place] [address] * (ABNORMAL) POCT glucose meter (07/12/2025 9:28 PM EDT) [facility] POCT Glucose 107(H) 74 - 99 mg/dL [...] for testing. Comment 07/12/2025 9:30 PM EDT [facility] Landing Scaler ID Yenny Tong 025 9:30 PM EDT HEALTHCARE LAB Device ID [id number] 07/12/2025 9:30 PM EDT HEALTHCARE LAB Specimen Type POC Capillary 07/12/2025 9:30 PM EDT HEALTH[facility]ARE LAB Blood Capillary blood specimen / Unknown 07/12/2025 9:28 PM EDT 07/12/2025 9:30 PM EDT Anne Franco MD LAB POINT OF CARE TEST DOCKED DEVICE UNSOLICITED RESULTS Final Result [facility] [address] [place] [address] * (ABNORMAL) POCT glucose meter (07/12/2025 6:04 PM EDT) [facility] POCT Glucose 129(H) 74 - 99 mg/dL [...] 07/12/2025 6:06 PM EDT [facility] Landing Scaler ID ToJeana [email or web address] 07/12/2025 6:06 PM EDT [facility] Device ID [id number] 07/12/2025 6:06 PM EDT HEALTHCARE LAB Specimen Type POC Capillary 07/12/2025 6:06 PM EDT [facility]ARE LAB Blood Capillary blood specimen / Unknown 07/12/2025 6:04 PM EDT 07/12/2025 6:06 PM EDT Anne Franco MD LAB POINT OF CARE TEST DOCKED DEVICE UNSOLICITED RESULTS Final Result [facility] [address] [place] [address] * PERIPHERAL IV (SMARTFORM LINK) (07/12/2025 3:51 [...] Comment 07/12/2025 11:56 AM EDT [facility]ALTHCARE LAB Landing Scaler ID Jeana Bear 07/12/2025 11:56 AM EDT HEALTHCARE LAB Device ID [id number] 07/12/2025 11:56 AM EDT HEALTHCARE LAB Specimen Type POC Capillary 07/12/2025 11:56 AM EDT [facility]ALTHCARE LAB Blood Capillary blood specimen / Unknown 07/12/2025 11:55 AM EDT 07/12/2025 11:56 AM EDT Dorcas Hennessy MD LAB POINT OF CARE TE ST DOCKED DEVICE UNSOLICITED RESULTS Final Result Performing Organization Address City/State/[facility] Co de Phone Number [facility] [address] [place] [id number] * XR Chest 1 View (07/12/2025 11:11 [...] Comment 07/12/2025 8:42 AM EDT HEALTHCARE LAB Landing Scaler ID Jeana Bear 07/12/2025 8:42 AM EDT [facility] Device ID [id number] 07/12/2025 8:42 AM EDT [facility] Specimen Type POC Capillary 07/12/2025 8:42 AM EDT [facility] Blood Capillary blood specimen / Unknown 07/12/2025 8:41 AM EDT 07/12/2025 8:42 AM EDT us Dorcas Hennessy MD LAB POINT OF CARE TE ST DOCKED DEVICE UNSOLICITED RESULTS Final Result Performing Organization Address City/[facility]/ZIP Co de Phone Number [facility] [address] [place] [address] * Phosphorus (07/12/2025 12:25 AM EDT) Phosphorus, Plasma 2.9 2.5 - 4.5 mg/dL 07/12/2025 1:22 AM EDT [facility] Blood Venous blood specimen / Unknown Venipuncture / Unknown 07/12/2025 12:25 AM EDT 07/12/2025 12:52 AM EDT us Luanne Crawford MD LAB BLOOD ORDERABLES Final Result [facility] [address] [place] [address] * Magnesium, Plasma (07/12/2025 12:25 AM EDT) Magnesium, Plasma 2.0 1.9 - 2.4 mg/dL 07/12/2025 1:22 AM EDT [facility] Blood Venous blood specimen / Unknown Venipuncture / Unknown 07/12/2025 12:25 AM EDT 07/12/2025 12:52 AM EDT us Luanne Crawford MD LAB BLOOD ORDERABLES Final Result Performing Organization Address City/[facility]/ZIP Co de Phone Number [facility] [address] [place] [address] * (ABNORMAL) Basic Metabolic Panel, Plasma (07/12/2025 12:25 AM EDT) Glucose, Plasma 92 74 - 99 mg/dL 07/12/2025 1:22 AM EDT [facility] BUN, Plasma 18 7 - 21 mg/dL 07/12/2025 1:22 AM EDT [facility] Creatinine, Plasma 0.84 0.60 - 1.10 mg/dL 07/12/2025 1:22 AM EDT [facility] BUN/Creatinine Ratio 21 07/12/2025 1:22 AM EDT [facility] Sodium, Plasma 142 136 - 145 mmol/L 07/12/2025 1:22 AM EDT [facility] Potassium, Plasma 3.6 3.6 - 4.9 mmol/L 07/12/2025 1:22 AM EDT [facility] Chloride, Plasma 103 97 - 107 mmol/L 07/12/2025 1:22 AM EDT [facility] CO2, Plasma 31(H) 22 - 29 mmol/L 07/12/2025 1:22 AM EDT [facility] Anion Gap 8 6 - 16 mmol/L 07/12/2025 1:22 AM EDT [facility] Total Calcium, Plasma 8.8(L) 8.9 - 10.2 mg/dL 07/12/2025 1:22 AM EDT [facility] eGFRcr 85.3 mL/min/1.7 3m*2 07/12/2025 1:22 AM EDT [facility] Comment:Reported eGFRcr in m L/min/1.73m2 is based the CKD-EPI 2020 equation that does not use a race coefficient. Blood Venous blood specimen / Unknown Venipuncture / Unknown 07/12/2025 12:25 AM EDT 07/12/2025 12:52 AM EDT us Luanne Crawford MD LAB BLOOD ORDERABLES Final Result [facility] [address] [place] [address] * (ABNORMAL) CBC W/O Differential (07/12/2025 12:25 AM EDT) WBC Count 15.81(H) 3.70 - 10.30 10*3/uL LAB HEMATOLOGY METHOD 07/12/2025 1:05 AM EDT [facility] RBC Count 3.39(L) 3.90 - 5.20 10*6/uL LAB HEMATOLOGY METHOD 07/12/2025 1:05 AM EDT [facility] HGB 9.3(L) 11.2 - 15.7 g/dL LAB HEMATOLOGY METHOD 07/12/2025 1:05 AM EDT [facility] HCT 29.8(L) 34.0 - 45.0 % LAB HEMATOLOGY METHOD 07/12/2025 1:05 AM EDT [facility] Platelet Count 276 155 - 369 10*3/uL LAB HEMATOLOGY METHOD 07/12/2025 1:05 AM EDT [facility] MCV 88 79 - 98 fL LAB HEMATOLOGY METHOD 07/12/2025 1:05 AM EDT [facility] MCH 27.4 26.0 - 32.0 pg LAB HEMATOLOGY METHOD 07/12/2025 1:05 AM EDT [facility] MCHC 31.2 30.7 - 35.5 g/dL LAB HEMATOLOGY METHOD 07/12/2025 1:05 AM EDT [facility] RDW 18.0(H) 11.5 - 14.5 % LAB HEMATOLOGY METHOD 07/12/2025 1:05 AM EDT [facility] MPV 10.5 8.8 - 12.5 fL LAB HEMATOLOGY METHOD 07/12/2025 1:05 AM EDT [facility] nRBC 0.0 <=0.0 per 100 WBCs LAB HEMATOLOGY METHOD 07/12/2025 1:05 AM EDT [facility] Blood Venous blood specimen / Unknown Venipuncture / Unknown 07/12/2025 12:25 AM EDT 07/12/2025 12:55 AM EDT Luanne Crawford MD LAB BLOOD ORDERABLES Final Result Performing Organization Address City/[facility]/ZIP Co de Phone Number [facility] [address] [place] [address] * (ABNORMAL) POCT Glucose (if patient NPO, on TPN or continuous nutrition) (07/11/2025 8:45 PM EDT) POCT Glucose 119(A) 74 - 99 mg/dL [facility] Test Strip Lot Number \[id number]\ [facility]ARE [facility] Test Strip Expiration 09/24/2026 [facility] Blood Venous blood specimen / Unknown 07/11/2025 8:45 PM EDT us Dorcas Hennessy MD POINT OF CARE TEST ENTER/EDIT OR DERABLES Final Result Performing Organization Address City/[facility] Co de Phone Number [facility] [address] [place] [address] * (ABNORMAL) POCT Glucose - Before Meals and Bedtime (07/11/2025 8:43 PM EDT) POCT Glucose 119(A) 74 - 99 mg/dL [facility] Test Strip Lot Number [id number] [facility]ARE [facility] Test Strip Expiration 09/24/2026 [facility] Blood Venous blood specimen / Unknown 07/11/2025 8:43 PM EDT us Dorcas Hennessy MD POINT OF CARE TEST ENTER/EDIT OR DERABLES Final Result [facility] [address] [place] [address] * (ABNORMAL) POCT glucose meter (07/11/2025 8:42 PM EDT) [facility] POCT Glucose 119(H) 74 - 99 mg/dL [...] 07/11/2025 8:43 PM EDT [facility] Landing Scaler ID Jf Cruz 07/11/2025 8:43 PM EDT [facility] Device ID [id number] 07/11/2025 8:43 PM EDT [facility] Specimen Type POC Capillary 07/11/2025 8:43 PM EDT [facility] Blood Capillary blood specimen / Unknown 07/11/2025 8:42 PM EDT 07/11/2025 8:43 PM EDT Dorcas Hennessy MD LAB POINT OF CARE TE ST DOCKED DEVICE UNSOLICITED RESULTS Final Result [facility] [address] [place] [address] * (ABNORMAL) POCT glucose meter (07/11/2025 5:38 PM EDT) [facility] POCT Glucose 142(H) 74 - 99 mg/dL [...] 07/11/2025 5:40 PM EDT [facility] Landing Scaler ID [email or web address] [email or web address] 07/11/2025 5:40 PM EDT [facility] Device ID [id number] 07/11/2025 5:40 PM EDT [facility]ALTH[facility]ARE LAB Specimen Type POC Capillary 07/11/2025 5:40 PM EDT [facility] Blood Capillary blood specimen / Unknown 07/11/2025 5:38 PM EDT 07/11/2025 5:40 PM EDT us Dorcas Hennessy MD LAB POINT OF CARE TE ST DOCKED DEVICE UNSOLICITED RESULTS Final Result Performing Organization Address City/[facility] Co de Phone Number [facility] [address] [place] [address] * (ABNORMAL) POCT glucose meter (07/11/2025 3:36 [...] Comment 07/11/2025 3:38 PM EDT [facility]ALTHCARE LAB Landing Scaler ID Radha Frias 07/11/20 3:38 PM EDT [facility]ALTH[facility]ARE LAB Device ID [id number] 07/11/2025 3:38 PM EDT [facility]ALTH[facility]ARE [facility] Specimen Type POC Venous 07/11/2025 3:38 PM EDT [facility] Blood Venous blood specimen / Unknown 07/11/2025 3:36 PM EDT 07/11/2025 3:38 PM EDT us Dorcas Hennessy MD LAB POINT OF CARE TE ST DOCKED DEVICE UNSOLICITED RESULTS Final Result Performing Organization Address City/[facility] Co de Phone Number [facility] [address] [place] [address] * (ABNORMAL) POCT glucose meter (07/11/2025 1:52 [...] 07/11/2025 1:54 PM EDT [facility] Landing Scaler ID Ayana Amato 07/11/2025 1:54 PM EDT HEALTHCARE LAB Device ID [id number] 07/11/2025 1:54 PM EDT [facility]ALTH[facility]ARE LAB Specimen Type POC Capillary 07/11/2025 1:54 PM EDT [facility]ALTH[facility]ARE [facility] Blood Capillary blood specimen / Unknown 07/11/2025 1:52 PM EDT 07/11/2025 1:54 PM EDT Dorcas Hennessy MD LAB POINT OF CARE TE ST DOCKED DEVICE UNSOLICITED RESULTS Final Result Performing Organization Address City/State/[facility] Co de Phone Number [facility] [address] [place] [address] * (ABNORMAL) POCT glucose meter (07/11/2025 12:12 PM EDT) [facility] POCT Glucose 154(H) 74 - 99 mg/dL [...] 07/11/2025 12:13 PM EDT [facility] Landing Scaler ID Ayana Amato 07/11/2025 12:13 PM EDT [facility] Device ID [id number] 07/11/2025 12:13 PM EDT [facility] Specimen Type POC Capillary 07/11/2025 12:13 PM EDT [facility] Blood Capillary blood specimen / Unknown 07/11/2025 12:12 PM EDT 07/11/2025 12:13 PM EDT Luanne Crawford MD LAB POINT OF CARE TEST DOCKED DEVICE UNSOLICITED RESULTS Final Result Performing Organization Address [facility] de Phone Number [facility] [address] [place] [address] * (ABNORMAL) POCT glucose meter (07/11/2025 9:57 [...] Comment 07/11/2025 9:59 AM EDT HEALTHCARE LAB Landing Scaler ID Ayana Amato 07/11/2025 9:59 AM EDT [facility] Device ID [id number] 07/11/2025 9:59 AM EDT [facility] Specimen Type POC Capillary 07/11/2025 9:59 AM EDT [facility] Blood Capillary blood specimen / Unknown 07/11/2025 9:57 AM EDT 07/11/2025 9:59 AM EDT us Luanne Crawford MD LAB POINT OF CARE TEST DOCKED DEVICE UNSOLICITED RESULTS Final Result Performing Organization Address [facility] de Phone Number [facility] [address] [place] [address] * [place] [facility], E/M 30-74 MINUTES (07/11/2025 8:41 [...] POCT glucose meter (07/11/2025 8:13 AM EDT) [facility] POCT Glucose 140(H) 74 - 99 mg/dL [...] for testing. Comment 07/11/2025 8:15 AM EDT [facility] Landing Scaler ID Ayana Amato 07/11/2025 8:15 AM EDT [facility] Device ID [id number] 07/11/2025 8:15 AM EDT [facility] Specimen Type POC Capillary 07/11/2025 8:15 AM EDT [facility] Blood Capillary blood specimen / Unknown 07/11/2025 8:13 AM EDT 07/11/2025 8:15 AM EDT us Luanne Crawford MD LAB POINT OF CARE TEST DOCKED DEVICE UNSOLICITED RESULTS Final Result Performing Organization Address [facility] de Phone Number [facility] [address] [place] [address] * (ABNORMAL) POCT glucose meter (07/11/2025 6:03 [...] for testing. Comment 07/11/2025 6:05 AM EDT [facility] Landing Scaler ID Cheyanne Briceño 07/11/2025 6:05 AM EDT [facility] Device ID [id number] 07/11/2025 6:05 AM EDT [facility] Specimen Type POC Capillary 07/11/2025 6:05 AM EDT [facility] Blood Capillary blood specimen / Unknown 07/11/2025 6:03 AM EDT 07/11/2025 6:05 AM EDT us Luanne Crawford MD LAB POINT OF CARE TEST DOCKED DEVICE UNSOLICITED RESULTS Final Result Performing Organization Address [facility] de Phone Number [facility] [address] [place] [address] * (ABNORMAL) POCT glucose meter (07/11/2025 4:04 [...] 07/11/2025 4:06 AM EDT [facility] Landing Scaler ID Cheyanne Briceño 07/11/2025 4:06 AM EDT HEALTHCARE LAB Device ID [id number] 07/11/2025 4:06 AM EDT [facility]ALTHCARE LAB Specimen Type POC Capillary 07/11/2025 4:06 AM EDT [facility]ARE [facility] Blood Capillary blood specimen / Unknown 07/11/2025 4:04 AM EDT 07/11/2025 4:06 AM EDT us Luanne Crawford MD LAB POINT OF CARE TEST DOCKED DEVICE UNSOLICITED RESULTS Final Result Performing Organization Address [facility] Co de Phone Number [facility] [address] [place] [address] * (ABNORMAL) POCT glucose meter (07/11/2025 2:02 [...] 07/11/2025 2:03 AM EDT [facility] Landing Scaler ID Cheyanne Briceño 07/11/2025 2:03 AM EDT HEALTHCARE LAB Device ID [id number] 07/11/2025 2:03 AM EDT [facility] Specimen Type POC Capillary 07/11/2025 2:03 AM EDT [facility] Blood Capillary blood specimen / Unknown 07/11/2025 2:02 AM EDT 07/11/2025 2:03 AM EDT us Luanne Crawford MD LAB POINT OF CARE TEST DOCKED DEVICE UNSOLICITED RESULTS Final Result Performing Organization Address City/[facility] Co de Phone Number [facility] [address] [place] [address] * Phosphorus (07/11/2025 12:09 AM EDT) Phosphorus, Plasma 3.7 2.5 - 4.5 mg/dL 07/11/2025 12:54 AM EDT [facility] Blood Venous blood specimen / Unknown Venipuncture / Unknown 07/11/2025 12:09 AM EDT 07/11/2025 12:26 AM EDT Luanne Crawford MD LAB BLOOD ORDERABLES Final Result Performing Organization Address City/[facility]/ZIP Co de Phone Number [facility] [address] [place] [address] * (ABNORMAL) Magnesium, Plasma (07/11/2025 12:09 AM EDT) Magnesium, Plasma 1.8(L) 1.9 - 2.4 mg/dL 07/11/2025 12:54 AM EDT [facility] Blood Venous blood specimen / Unknown Venipuncture / Unknown 07/11/2025 12:09 AM EDT 07/11/2025 12:26 AM EDT Luanne Crawford MD LAB BLOOD ORDERABLES Final Result Performing Organization Address [facility]/ZIP Co de Phone Number [facility] [address] [place] [address] * (ABNORMAL) Basic Metabolic Panel, Plasma (07/11/2025 12:09 AM EDT) Glucose, Plasma 163(H) 74 - 99 mg/dL 07/11/2025 12:54 AM EDT [facility] BUN, Plasma 20 7 - 21 mg/dL 07/11/2025 12:54 AM EDT [facility] Creatinine, Plasma 0.99 0.60 - 1.10 mg/dL 07/11/2025 12:54 AM EDT [facility] BUN/Creatinine Ratio 20 07/11/2025 12:54 AM EDT [facility] Sodium, Plasma 141 136 - 145 mmol/L 07/11/2025 12:54 AM EDT [facility] Potassium, Plasma 3.8 3.6 - 4.9 mmol/L 07/11/2025 12:54 AM EDT [facility] Chloride, Plasma 104 97 - 107 mmol/L 07/11/2025 12:54 AM EDT [facility] CO2, Plasma 27 22 - 29 mmol/L 07/11/2025 12:54 AM EDT [facility] Anion Gap 10 6 - 16 mmol/L 07/11/2025 12:54 AM EDT [facility] Total Calcium, Plasma 9.1 8.9 - 10.2 mg/dL 07/11/2025 12:54 AM EDT [facility] eGFRcr 70.0 mL/min/1.7 3m*2 07/11/2025 12:54 AM EDT [facility] Comment:Reported eGFRcr in m L/min/1.73m2 is based the CKD-EPI 2020 equation that does not use a race coefficient. Blood Venous blood specimen / Unknown Venipuncture / Unknown 07/11/2025 12:09 AM EDT 07/11/2025 12:26 AM EDT us Luanne Crawford MD LAB BLOOD ORDERABLES Final Result [facility] [address] [place] [address] * (ABNORMAL) CBC W/O Differential (07/11/2025 12:09 AM EDT) WBC Count 13.23(H) 3.70 - 10.30 10*3/uL LAB HEMATOLOGY METHOD 07/11/2025 12:36 AM EDT [facility] RBC Count 3.65(L) 3.90 - 5.20 10*6/uL LAB HEMATOLOGY METHOD 07/11/2025 12:36 AM EDT [facility] HGB 10.1(L) 11.2 - 15.7 g/dL LAB HEMATOLOGY METHOD 07/11/2025 12:36 AM EDT [facility] HCT 32.1(L) 34.0 - 45.0 % LAB HEMATOLOGY METHOD 07/11/2025 12:36 AM EDT [facility] Platelet Count 270 155 - 369 10*3/uL LAB HEMATOLOGY METHOD 07/11/2025 12:36 AM EDT [facility] MCV 88 79 - 98 fL LAB HEMATOLOGY METHOD 07/11/2025 12:36 AM EDT [facility] MCH 27.7 26.0 - 32.0 pg LAB HEMATOLOGY METHOD 07/11/2025 12:36 AM EDT [facility] MCHC 31.5 30.7 - 35.5 g/dL LAB HEMATOLOGY METHOD 07/11/2025 12:36 AM EDT [facility] RDW 17.9(H) 11.5 - 14.5 % LAB HEMATOLOGY METHOD 07/11/2025 12:36 AM EDT [facility] MPV 10.7 8.8 - 12.5 fL LAB HEMATOLOGY METHOD 07/11/2025 12:36 AM EDT [facility] nRBC 0.0 <=0.0 per 100 WBCs LAB HEMATOLOGY METHOD 07/11/2025 12:36 AM EDT [facility] Blood Venous blood specimen / Unknown Venipuncture / Unknown 07/11/2025 12:09 AM EDT 07/11/2025 12:29 AM EDT us Luanne Crawford MD LAB BLOOD ORDERABLES Final Result [facility] [address] [place] [address] * (ABNORMAL) POCT glucose meter (07/11/2025 12:04 [...] Comment 07/11/2025 12:06 AM EDT [facility] Landing Scaler ID Cheyanne Briceño 07/11/2025 12:06 AM EDT [employer] [facility] Device ID [id number] 07/11/2025 12:06 AM EDT [facility] LAB Specimen Type POC Capillary 07/11/2025 12:06 AM EDT [facility] Blood Capillary blood specimen / Unknown 07/11/2025 12:04 AM EDT 07/11/2025 12:06 AM EDT Luanne Crawford MD LAB POINT OF CARE TEST DOCKED DEVICE UNSOLICITED RESULTS Final Result Performing Organization Address City/[facility] Co de Phone Number [facility] [address] [place] [address] * (ABNORMAL) POCT glucose meter (07/10/2025 10:02 [...] Comment 07/10/2025 10:03 PM EDT [facility] Landing Scaler ID Lidia Ugalde 07/10/2025 10:03 PM EDT [facility]ALTH[facility]ARE LAB Device ID [id number] 07/10/2025 10:03 PM EDT [facility]ARE LAB Specimen Type POC Capillary 07/10/2025 10:03 PM EDT [facility] Blood Capillary blood specimen / Unknown 07/10/2025 10:02 PM EDT 07/10/2025 10:03 PM EDT us Luanne Crawford MD LAB POINT OF CARE TEST DOCKED DEVICE UNSOLICITED RESULTS Final Result Performing Organization Address City/[facility] Co de Phone Number [facility] [address] [place] [address] * (ABNORMAL) Blood gas panel, arterial (07/10/2025 8:23 PM EDT) pH, Arterial 7.30(L) 7.35 - 7.45 LAB HEMATOLOGY METHOD 07/10/2025 8:40 PM EDT [facility] pCO2, Arterial 57(H) 35 - 48 mmHg LAB HEMATOLOGY METHOD 07/10/2025 8:40 PM EDT [facility] pO2, Arterial 80(L) 83 - 108 mmHg LAB HEMATOLOGY METHOD 07/10/2025 8:40 PM EDT [facility] SO2, Measured, Arterial 95 94 - 98 % LAB HEMATOLOGY METHOD 07/10/2025 8:40 PM EDT [facility] Base Excess, Arterial 1.1 -2.0 - 3.0 mmol/L LAB HEMATOLOGY METHOD 07/10/2025 8:40 PM EDT [facility] Bicarbonate, Calculated, Arterial 28(H) 22 - 26 mmol/L LAB HEMATOLOGY METHOD 07/10/2025 8:40 PM EDT [facility] Hematocrit, Whole Blood 31.5(L) 34.0 - 45.0 % LAB HEMATOLOGY METHOD 07/10/2025 8:40 PM EDT [facility] Sodium, Whole Blood 138 136 - 145 mmol/L LAB HEMATOLOGY METHOD 07/10/2025 8:40 PM EDT [facility] Potassium, Whole Blood 3.9 3.6 - 4.9 mmol/L LAB HEMATOLOGY METHOD 07/10/2025 8:40 PM EDT [facility] Chloride, Whole Blood 103 97 - 107 mmol/L LAB HEMATOLOGY METHOD 07/10/2025 8:40 PM EDT [facility] Glucose, Whole Blood 206(H) 74 - 99 mg/dL LAB HEMATOLOGY METHOD 07/10/2025 8:40 PM EDT [facility] Ionized Calcium, Whole Blood 5.0 4.6 - 5.1 mg/dL LAB HEMATOLOGY METHOD 07/10/2025 8:40 PM EDT [facility] Lactate, Arterial, Whole Blood 1.7(H) 0.5 - 1.6 mmol/L LAB HEMATOLOGY METHOD 07/10/2025 8:40 PM EDT [facility] Blood Arterial blood specimen / Unknown Arterial Puncture / Unknown 07/10/2025 8:23 PM EDT 07/10/2025 8:35 PM EDT us Luanne Crawford MD LAB BLOOD ORDERABLES Final Result [facility] [address] [place] [address] * (ABNORMAL) POCT glucose meter (07/10/2025 8:03 PM EDT) [facility] POCT Glucose 206(H) 74 - 99 mg/dL [...] 07/10/2025 8:05 PM EDT [facility] Landing Scaler ID Cheyanne Briceño 07/10/2025 8:05 PM EDT [facility]ARE LAB Device ID [id number] 07/10/2025 8:05 PM EDT [facility] LAB Specimen Type POC Capillary 07/10/2025 8:05 PM EDT [facility] Blood Capillary blood specimen / Unknown 07/10/2025 8:03 PM EDT 07/10/2025 8:05 PM EDT Luanne Crawford MD LAB POINT OF CARE TEST DOCKED DEVICE UNSOLICITED RESULTS Final Result [facility] [address] [place] [address] * (ABNORMAL) POCT glucose meter (07/10/2025 6:22 PM EDT) [facility] POCT Glucose 150(H) 74 - 99 mg/dL [...] 07/10/2025 6:25 PM EDT [facility] Landing Scaler ID Luca Zara Barry 025 6:25 PM EDT [facility] Device ID [id number] 07/10/2025 6:25 PM EDT [facility] LAB Specimen Type POC Capillary 07/10/2025 6:25 PM EDT [facility] Blood Capillary blood specimen / Unknown 07/10/2025 6:22 PM EDT 07/10/2025 6:25 PM EDT us Luanne Crawford MD LAB POINT OF CARE TEST DOCKED DEVICE UNSOLICITED RESULTS Final Result Performing Organization Address City/[facility] Co de Phone Number [facility] [address] [place] [address] * (ABNORMAL) POCT glucose meter (07/10/2025 2:17 PM EDT) [facility] POCT Glucose 145(H) 74 - 99 mg/dL [...] Comment 07/10/2025 2:19 PM EDT [facility] LAB Landing Scaler ID Zara Segovia 025 2:19 PM EDT HEALTHCARE LAB Device ID [id number] 07/10/2025 2:19 PM EDT [facility]ALTH[facility]ARE LAB Specimen Type POC Arterial 07/10/2025 2:19 PM EDT [facility] LAB Blood Arterial blood specimen / Unknown 07/10/2025 2:17 PM EDT 07/10/2025 2:19 PM EDT us Luanne Crawford MD LAB POINT OF CARE TEST DOCKED DEVICE UNSOLICITED RESULTS Final Result Performing Organization Address City/[facility] Co de Phone Number [facility] [address] [place] [address] * XR Abdomen 1 View (07/10/2025 12:03 [...] of the abdomen. COMPARISON: None. FINDINGS: Limited [id number] abdominal radiograph for the purpose of locating tube position. The tip of the nasogastric tube is within the mid stomach. Procedure Note Bernabe Sen MD - 07/10/2025 CLINICAL INDICATION: feeding tube placement TECHNIQUE: Supine radiograph of the abdomen. COMPARISON: None. FINDINGS: Limited ocoow-[id number] abdominal radiograph for the purpose of locatingtube [...] 99 mg/dL 07/10/2025 12:02 PM EDT [facility] Comment:Accuracy of a glucos e [...] 07/10/2025 12:02 PM EDT [facility] Landing Scaler ID Segovia, Symleandraa F 025 12:02 PM EDT [facility] Device ID [id number] 07/10/2025 12:02 PM EDT [facility] Specimen Type POC Arterial 07/10/2025 12:02 PM EDT [facility]ALTH[facility]ARE LAB Blood Arterial blood specimen / Unknown 07/10/2025 12:00 PM EDT 07/10/2025 12:02 PM EDT Luanne Crawford MD LAB POINT OF CARE TEST DOCKED DEVICE UNSOLICITED RESULTS Final Result Performing Organization Address City/[facility] Co de Phone Number [facility] [address] [place] [address] * (ABNORMAL) POCT glucose meter (07/10/2025 9:50 AM EDT) [facility] POCT Glucose 134(H) 74 - 99 mg/dL [...] Comment 07/10/2025 9:52 AM EDT [facility]ALTHCARE LAB Landing Scaler ID Segovia, Martina Asha 025 9:52 AM EDT HEALTHCARE LAB Device ID [id number] 07/10/2025 9:52 AM EDT [facility]ALTH[facility]ARE LAB Specimen Type POC Arterial 07/10/2025 9:52 AM EDT [facility] LAB Blood Arterial blood specimen / Unknown 07/10/2025 9:50 AM EDT 07/10/2025 9:52 AM EDT us Luanne Crawford MD LAB POINT OF CARE TEST DOCKED DEVICE UNSOLICITED RESULTS Final Result Performing Organization Address City/[facility]/ZIP Co de Phone Number [facility] [address] [place] [address] * ECG Adult (07/10/2025 8:42 AM EDT) EKG DIAGNOSIS CLASS Abnormal MUSE ECG Ventricular Rate 79 BPM MUSE ECG Atrial Rate 79 BPM MUSE ECG IL Interval 188 ms MUSE ECG QRSD Interval 90 ms MUSE ECG QT Interval 354 ms MUSE ECG QTC Interval 405 ms MUSE ECG P Eldridge 44 degrees MUSE ECG R Eldridge 17 degrees MUSE ECG T Wave Eldridge 27 degrees MUSE ECG Diagnosis Sinus rhythm with frequent premature ventricular complexes MUSE ECG Diagnosis Low voltage QRS MUSE ECG Diagnosis Cannot rule out Anterior infarct , age undetermined MUSE ECG Diagnosis MUSE ECG Diagnosis MUSE ECG Diagnosis Confirmed by Octavio Walsh ([id number]) on 07/10/2025 11:49:20 AM MUSE ECG 07/10/2025 8:42 AM EDT 07/10/2025 11:49 AM EDT us Luanne Crawford MD ECG ORDERABLES Final Resu lt MUSE ECG * [place] [facility], E/M 30-74 MINUTES (07/10/2025 8:15 [...] for testing. Comment 07/10/2025 9:22 AM EDT [facility] Landing Scaler ID Segovia, Martina F 025 9:22 AM EDT [employer] LAB Device ID [id number] 07/10/2025 9:22 AM EDT [facility] Specimen Type POC Arterial 07/10/2025 9:22 AM EDT [facility] Blood Arterial blood specimen / Unknown 07/10/2025 8:04 AM EDT 07/10/2025 9:22 AM EDT us Luanne Crawford MD LAB POINT OF CARE TEST DOCKED DEVICE UNSOLICITED RESULTS Final Result Performing Organization Address City/State/[facility] Co de Phone Number HE[facility]ARE LAB [address] [place] [address] * (ABNORMAL) POCT glucose meter (07/10/2025 6:04 [...] Comment 07/10/2025 6:05 AM EDT [facility] LAB Landing Scaler ID Cheyanne Briceño 07/10/2025 6:05 AM EDT HEALTHCARE LAB Device ID [id number] 07/10/2025 6:05 AM EDT HEALTH[facility]ARE LAB Specimen Type POC Arterial 07/10/2025 6:05 AM EDT [facility] LAB Blood Arterial blood specimen / Unknown 07/10/2025 6:04 AM EDT 07/10/2025 6:05 AM EDT Luanne Crawford MD LAB POINT OF CARE TEST DOCKED DEVICE UNSOLICITED RESULTS Final Result Performing Organization Address [facility] Co de Phone Number [facility] [address] [place] [address] * (ABNORMAL) POCT glucose meter (07/10/2025 3:59 [...] Comment 07/10/2025 4:01 AM EDT [facility] LAB Landing Scaler ID Cheyanne Briceño 07/10/2025 4:01 AM EDT HEALTH[facility]ARE LAB Device ID [id number] 07/10/2025 4:01 AM EDT HEALTH[facility]ARE LAB Specimen Type POC Arterial 07/10/2025 4:01 AM EDT [facility]ALTH[facility]ARE LAB Blood Arterial blood specimen / Unknown 07/10/2025 3:59 AM EDT 07/10/2025 4:01 AM EDT Luanne Crawford MD LAB POINT OF CARE TEST DOCKED DEVICE UNSOLICITED RESULTS Final Result Performing Organization Address City/[facility] Co de Phone Number [facility] [address] [place] [address] * (ABNORMAL) POCT glucose meter (07/10/2025 3:01 AM EDT) [facility] POCT Glucose 165(H) 74 - 99 mg/dL [...] Comment 07/10/2025 3:03 AM EDT [facility]ALTH[facility]ARE LAB Landing Scaler ID Cheyanne Briceño 07/10/2025 3:03 AM EDT HEALTHCARE LAB Device ID [id number] 07/10/2025 3:03 AM EDT [facility]ALTH[facility]ARE LAB Specimen Type POC Arterial 07/10/2025 3:03 AM EDT [facility] LAB Blood Arterial blood specimen / Unknown 07/10/2025 3:01 AM EDT 07/10/2025 3:03 AM EDT us Luanne Crawford MD LAB POINT OF CARE TEST DOCKED DEVICE UNSOLICITED RESULTS Final Result Performing Organization Address City/State/[facility] Co de Phone Number [facility] [address] [place] [address] * (ABNORMAL) POCT glucose meter (07/10/2025 2:03 AM EDT) [facility] POCT Glucose 180(H) 74 - 99 mg/dL [...] 07/10/2025 2:04 AM EDT [facility] Landing Scaler ID Cheyanne Briceño 07/10/2025 2:04 AM EDT [facility] Device ID [id number] 07/10/2025 2:04 AM EDT [facility]ALTH[facility]ARE LAB Specimen Type POC Arterial 07/10/2025 2:04 AM EDT [facility] LAB Blood Arterial blood specimen / Unknown 07/10/2025 2:03 AM EDT 07/10/2025 2:04 AM EDT Luanne Crawford MD LAB POINT OF CARE TEST DOCKED DEVICE UNSOLICITED RESULTS Final Result Performing Organization Address City/[facility]/ZIP Co de Phone Number [facility] [address] [place] [address] * (ABNORMAL) POCT glucose meter (07/10/2025 12:59 AM EDT) Pathologist [facility] POCT Glucose 158(H) 74 - 99 mg/dL 07/10/2025 1:00 AM EDT [employer] [facility] Comment:Accuracy of a glucos e [...] for testing. Comment 07/10/2025 1:00 AM EDT [facility] Landing Scaler ID Cheyanne Briceño 07/10/2025 1:00 AM EDT HEALTHCARE LAB Device ID [id number] 07/10/2025 1:00 AM EDT [facility] Specimen Type POC Arterial 07/10/2025 1:00 AM EDT [facility] Blood Arterial blood specimen / Unknown 07/10/2025 12:59 AM EDT 07/10/2025 1:00 AM EDT us Luanne Crawford MD LAB POINT OF CARE TEST DOCKED DEVICE UNSOLICITED RESULTS Final Result [facility] [address] [place] [address] * Phosphorus (07/10/2025 12:03 AM EDT) Pathologist [facility] Phosphorus, Plasma 4.2 2.5 - 4.5 mg/dL 07/10/2025 12:40 AM EDT [facility] Blood Arterial blood specimen / Unknown Venipuncture / Unknown 07/10/2025 12:03 AM EDT 07/10/2025 12:10 AM EDT us Luanne Crawford MD LAB BLOOD ORDERABLES Final Result Performing Organization Address City/[facility]/ZIP Co de Phone Number [facility] [address] [place] [address] * Magnesium, Plasma (07/10/2025 12:03 AM EDT) Magnesium, Plasma 2.1 1.9 - 2.4 mg/dL 07/10/2025 12:40 AM EDT [facility] Blood Arterial blood specimen / Unknown Venipuncture / Unknown 07/10/2025 12:03 AM EDT 07/10/2025 12:10 AM EDT us Luanne Crawford MD LAB BLOOD ORDERABLES Final Result Performing Organization Address [facility]/ZIP Co de Phone Number [facility] [address] [place] [address] * (ABNORMAL) Basic Metabolic Panel, Plasma (07/10/2025 12:03 AM EDT) Glucose, Plasma 155(H) 74 - 99 mg/dL 07/10/2025 12:40 AM EDT [facility] BUN, Plasma 22(H) 7 - 21 mg/dL 07/10/2025 12:40 AM EDT [facility] Creatinine, Plasma 1.25(H) 0.60 - 1.10 mg/dL 07/10/2025 12:40 AM EDT [facility] BUN/Creatinine Ratio 18 07/10/2025 12:40 AM EDT [facility] Sodium, Plasma 134(L) 136 - 145 mmol/L 07/10/2025 12:40 AM EDT [facility] Potassium, Plasma 3.7 3.6 - 4.9 mmol/L 07/10/2025 12:40 AM EDT [facility] Chloride, Plasma 101 97 - 107 mmol/L 07/10/2025 12:40 AM EDT [facility] CO2, Plasma 25 22 - 29 mmol/L 07/10/2025 12:40 AM EDT [facility] Anion Gap 8 6 - 16 mmol/L 07/10/2025 12:40 AM EDT [facility] Total Calcium, Plasma 9.3 8.9 - 10.2 mg/dL 07/10/2025 12:40 AM EDT [facility] eGFRcr 52.9 mL/min/1.7 3m*2 07/10/2025 12:40 AM EDT [facility] Comment:Reported eGFRcr in m L/min/1.73m2 is based the CKD-EPI 2020 equation that does not use a race coefficient. Blood Arterial blood specimen / Unknown Venipuncture / Unknown 07/10/2025 12:03 AM EDT 07/10/2025 12:10 AM EDT us Luanne Crawford MD LAB BLOOD ORDERABLES Final Result [facility] [address] [place] [address] * (ABNORMAL) CBC W/O Differential (07/10/2025 12:03 AM EDT) WBC Count 17.64(H) 3.70 - 10.30 10*3/uL LAB HEMATOLOGY METHOD 07/10/2025 12:22 AM EDT [facility] RBC Count 3.83(L) 3.90 - 5.20 10*6/uL LAB HEMATOLOGY METHOD 07/10/2025 12:22 AM EDT [facility] HGB 10.6(L) 11.2 - 15.7 g/dL LAB HEMATOLOGY METHOD 07/10/2025 12:22 AM EDT [facility] HCT 33.3(L) 34.0 - 45.0 % LAB HEMATOLOGY METHOD 07/10/2025 12:22 AM EDT [facility] Platelet Count 309 155 - 369 10*3/uL LAB HEMATOLOGY METHOD 07/10/2025 12:22 AM EDT [facility] MCV 87 79 - 98 fL LAB HEMATOLOGY METHOD 07/10/2025 12:22 AM EDT [facility] MCH 27.7 26.0 - 32.0 pg LAB HEMATOLOGY METHOD 07/10/2025 12:22 AM EDT [facility] MCHC 31.8 30.7 - 35.5 g/dL LAB HEMATOLOGY METHOD 07/10/2025 12:22 AM EDT [facility] RDW 17.9(H) 11.5 - 14.5 % LAB HEMATOLOGY METHOD 07/10/2025 12:22 AM EDT [facility] MPV 10.3 8.8 - 12.5 fL LAB HEMATOLOGY METHOD 07/10/2025 12:22 AM EDT [facility] nRBC 0.0 <=0.0 per 100 WBCs LAB HEMATOLOGY METHOD 07/10/2025 12:22 AM EDT [facility] Blood Arterial blood specimen / Unknown Venipuncture / Unknown 07/10/2025 12:03 AM EDT 07/10/2025 12:11 AM EDT us Luanne Crawford MD LAB BLOOD ORDERABLES Final Result [facility] [address] [place] [address] * (ABNORMAL) POCT glucose meter (07/10/2025 12:02 [...] Comment 07/10/2025 12:04 AM EDT [facility]ALTHCARE LAB Landing Scaler ID Cheyanne Briceño 07/10/2025 12:04 AM EDT HEALTHCARE LAB Device ID [id number] 07/10/2025 12:04 AM EDT HEALTHCARE LAB Specimen Type POC Arterial 07/10/2025 12:04 AM EDT [facility]ALTH[facility]ARE LAB Blood Arterial blood specimen / Unknown 07/10/2025 12:02 AM EDT 07/10/2025 12:04 AM EDT us Luanne Crawford MD LAB POINT OF CARE TEST DOCKED DEVICE UNSOLICITED RESULTS Final Result [facility] [address] [place] [address] * (ABNORMAL) POCT glucose meter (07/09/2025 10:01 PM EDT) Pathologist [facility] POCT Glucose 183(H) 74 - 99 mg/dL 07/09/2025 10:04 PM EDT HEALTHCARE LAB Comment:Accuracy of a [...] for testing. Comment 07/09/2025 10:04 PM EDT [employer] [facility] Landing Scaler ID Cheyanne Briceño 07/09/2025 10:04 PM EDT [employer] [facility] Device ID [id number] 07/09/2025 10:04 PM EDT [facility] Specimen Type POC Arterial 07/09/2025 10:04 PM EDT [facility] Blood Arterial blood specimen / Unknown 07/09/2025 10:01 PM EDT 07/09/2025 10:04 PM EDT Luanne Crawford MD LAB POINT OF CARE TEST DOCKED DEVICE UNSOLICITED RESULTS Final Result Performing Organization Address City/[facility] Co de Phone Number [facility]ARE LAB [address] [place] [address] * (ABNORMAL) POCT glucose meter (07/09/2025 8:09 PM EDT) [facility] POCT Glucose 188(H) 74 - 99 mg/dL [...] Comment 07/09/2025 8:11 PM EDT HEALTHCARE LAB Landing Scaler ID Cheyanne Briceño 07/09/2025 8:11 PM EDT HEALTHCARE LAB Device ID [id number] 07/09/2025 8:11 PM EDT HEALTHCARE LAB Specimen Type POC Capillary 07/09/2025 8:11 PM EDT [facility] LAB Blood Capillary blood specimen / Unknown 07/09/2025 8:09 PM EDT 07/09/2025 8:11 PM EDT Luanne Crawford MD LAB POINT OF CARE TEST DOCKED DEVICE UNSOLICITED RESULTS Final Result Performing Organization Address City/[facility] Co de Phone Number [facility] [address] [place] [address] * (ABNORMAL) POCT glucose meter (07/09/2025 6:22 PM EDT) Pathologist [facility] POCT Glucose 151(H) 74 - [...] Comment 07/09/2025 6:24 PM EDT HEALTHCARE LAB Landing Scaler ID Jeana Bear 07/09/2025 6:24 PM EDT HEALTHCARE LAB Device ID [id number] 07/09/2025 6:24 PM EDT [facility]ALTH[facility]ARE LAB Specimen Type POC Capillary 07/09/2025 6:24 PM EDT [facility] LAB Blood Capillary blood specimen / Unknown 07/09/2025 6:22 PM EDT 07/09/2025 6:24 PM EDT Luanne Crawford MD LAB POINT OF CARE TEST DOCKED DEVICE UNSOLICITED RESULTS Final Result Performing Organization Address City/[facility]/ZIP Co de Phone Number [facility] [address] [place] [address] * (ABNORMAL) POCT glucose meter (07/09/2025 4:06 PM EDT) [facility] POCT Glucose 144(H) 74 - 99 mg/dL [...] Comment 07/09/2025 4:07 PM EDT [facility]ALTH[facility] Landing Scaler ID Jeana Bear 07/09/2025 4:07 PM EDT [facility]ALTH[facility] Device ID [id number] 07/09/2025 4:07 PM EDT [facility] Specimen Type POC Capillary 07/09/2025 4:07 PM EDT [facility] Blood Capillary blood specimen / Unknown 07/09/2025 4:06 PM EDT 07/09/2025 4:07 PM EDT us Luanne Crawford MD LAB POINT OF CARE TEST DOCKED DEVICE UNSOLICITED RESULTS Final Result [facility] [address] [place] [address] * (ABNORMAL) Blood gas, arterial (07/09/2025 3:16 PM EDT) [facility] pH, Arterial 7.31(L) 7.35 - 7.45 LAB HEMATOLOGY METHOD 07/09/2025 3:40 PM EDT [facility] pCO2, Arterial 53(H) 35 - 48 mmHg LAB HEMATOLOGY METHOD 07/09/2025 3:40 PM EDT [facility] pO2, Arterial 153(H) 83 - 108 mmHg LAB HEMATOLOGY METHOD 07/09/2025 3:40 PM EDT [facility] SO2, Measured, Arterial 100(H) 94 - 98 % LAB HEMATOLOGY METHOD 07/09/2025 3:40 PM EDT [facility] Base Excess, Arterial -0.4 -2.0 - 3.0 mmol/L LAB HEMATOLOGY METHOD 07/09/2025 3:40 PM EDT [facility] Bicarbonate, Calculated, Arterial 26 22 - 26 mmol/L LAB HEMATOLOGY METHOD 07/09/2025 3:40 PM EDT [facility] Hematocrit, Whole Blood 30.6(L) 34.0 - 45.0 % LAB HEMATOLOGY METHOD 07/09/2025 3:40 PM EDT [facility] Sodium, Whole Blood 141 136 - 145 mmol/L LAB HEMATOLOGY METHOD 07/09/2025 3:40 PM EDT [facility] Potassium, Whole Blood 3.4(L) 3.6 - 4.9 mmol/L LAB HEMATOLOGY METHOD 07/09/2025 3:40 PM EDT [facility] Chloride, Whole Blood 107 97 - 107 mmol/L LAB HEMATOLOGY METHOD 07/09/2025 3:40 PM EDT [facility] Glucose, Whole Blood 141(H) 74 - 99 mg/dL LAB HEMATOLOGY METHOD 07/09/2025 3:40 PM EDT [facility] Ionized Calcium, Whole Blood 4.9 4.6 - 5.1 mg/dL LAB HEMATOLOGY METHOD 07/09/2025 3:40 PM EDT [facility] Lactate, Arterial, Whole Blood 0.9 0.5 - 1.6 mmol/L LAB HEMATOLOGY METHOD 07/09/2025 3:40 PM EDT [facility] Blood Arterial blood specimen / Unknown Arterial Line / Unknown 07/09/2025 3:16 PM EDT 07/09/2025 3:38 PM EDT us Luanne Crawford MD LAB BLOOD ORDERABLES Final Result Performing Organization Address City/State/[facility] Co de Phone Number [facility] [address] [place] [address] * (ABNORMAL) POCT glucose meter (07/09/2025 3:01 PM EDT) POCT Glucose 135(H) 74 - 99 mg/dL 07/09/2025 3:03 PM EDT [facility] Comment:Accuracy of a glucos e [...] Comment 07/09/2025 3:03 PM EDT [facility] LAB Landing Scaler ID Jeana Bear 07/09/2025 3:03 PM EDT [facility] Device ID [id number] 07/09/2025 3:03 PM EDT [facility] Specimen Type POC Capillary 07/09/2025 3:03 PM EDT [facility] Blood Capillary blood specimen / Unknown 07/09/2025 3:01 PM EDT 07/09/2025 3:03 PM EDT us Luanne Crawford MD LAB POINT OF CARE TEST DOCKED DEVICE UNSOLICITED RESULTS Final Result Performing Organization Address [facility] Co de Phone Number [facility] [address] [place] [address] * (ABNORMAL) POCT glucose meter (07/09/2025 1:57 [...] Comment 07/09/2025 1:59 PM EDT [facility] LAB Landing Scaler ID Jeana Bear 07/09/2025 1:59 PM EDT [facility] LAB Device ID [id number] 07/09/2025 1:59 PM EDT [facility] Specimen Type POC Capillary 07/09/2025 1:59 PM EDT [facility] LAB Blood Capillary blood specimen / Unknown 07/09/2025 1:57 PM EDT 07/09/2025 1:59 PM EDT us Luanne Crawford MD LAB POINT OF CARE TEST DOCKED DEVICE UNSOLICITED RESULTS Final Result Performing Organization Address City/[facility]/ZIP Co de Phone Number [facility] [address] [place] [address] * Phosphorus (07/09/2025 1:21 PM EDT) Phosphorus, Plasma 4.2 2.5 - 4.5 mg/dL 07/09/2025 2:49 PM EDT [facility] Blood Arterial blood specimen / Unknown Arterial Line / Unknown 07/09/2025 1:21 PM EDT 07/09/2025 2:01 PM EDT Luanne Crawford MD LAB BLOOD ORDERABLES Final Result Performing Organization Address City/[facility]/ZIP Co de Phone Number [facility] [address] [place] [address] * Magnesium (07/09/2025 1:21 PM EDT) Magnesium, Plasma 2.3 1.9 - 2.4 mg/dL 07/09/2025 2:49 PM EDT [facility] Blood Arterial blood specimen / Unknown Arterial Line / Unknown 07/09/2025 1:21 PM EDT 07/09/2025 2:01 PM EDT Luanne Crawford MD LAB BLOOD ORDERABLES Final Result Performing Organization Address [facility] Co de Phone Number [facility] [address] [place] [address] * (ABNORMAL) Basic metabolic panel (07/09/2025 1:21 PM EDT) Glucose, Plasma 100(H) 74 - 99 mg/dL 07/09/2025 2:49 PM EDT [facility] BUN, Plasma 26(H) 7 - 21 mg/dL 07/09/2025 2:49 PM EDT [facility] Creatinine, Plasma 1.42(H) 0.60 - 1.10 mg/dL 07/09/2025 2:49 PM EDT [facility] BUN/Creatinine Ratio 18 07/09/2025 2:49 PM EDT [facility] Sodium, Plasma 140 136 - 145 mmol/L 07/09/2025 2:49 PM EDT [facility] Potassium, Plasma 3.7 3.6 - 4.9 mmol/L 07/09/2025 2:49 PM EDT [facility] Chloride, Plasma 104 97 - 107 mmol/L 07/09/2025 2:49 PM EDT [facility] CO2, Plasma 24 22 - 29 mmol/L 07/09/2025 2:49 PM EDT [facility] Anion Gap 12 6 - 16 mmol/L 07/09/2025 2:49 PM EDT [facility] Total Calcium, Plasma 9.1 8.9 - 10.2 mg/dL 07/09/2025 2:49 PM EDT [facility] eGFRcr 45.4 mL/min/1.7 3m*2 07/09/2025 2:49 PM EDT [facility] Comment:Reported eGFRcr in m L/min/1.73m2 is based the CKD-EPI 2020 equation that does not use a race coefficient. Blood Arterial blood specimen / Unknown Arterial Line / Unknown 07/09/2025 1:21 PM EDT 07/09/2025 2:01 PM EDT us Luanne Crawford MD LAB BLOOD ORDERABLES Final Result [facility] [address] [place] [address] * (ABNORMAL) POCT glucose meter (07/09/2025 1:20 [...] Comment 07/09/2025 1:22 PM EDT [facility] LAB Landing Scaler ID Jeana Bear 07/09/2025 1:22 PM EDT [facility] LAB Device ID [id number] 07/09/2025 1:22 PM EDT [facility] Specimen Type POC Arterial 07/09/2025 1:22 PM EDT [facility] LAB Blood Arterial blood specimen / Unknown 07/09/2025 1:20 PM EDT 07/09/2025 1:22 PM EDT Luanne Crawford MD LAB POINT OF CARE TEST DOCKED DEVICE UNSOLICITED RESULTS Final Result Performing Organization Address City/[facility] Co de Phone Number [facility] [address] [place] [address] * (ABNORMAL) POCT glucose meter (07/09/2025 12:44 [...] Comment 07/09/2025 12:45 PM EDT [facility] LAB Landing Scaler ID Jeana Bear 07/09/2025 12:45 PM EDT [facility] LAB Device ID [id number] 07/09/2025 12:45 PM EDT [facility] LAB Specimen Type POC Capillary 07/09/2025 12:45 PM EDT [facility] LAB Blood Capillary blood specimen / Unknown 07/09/2025 12:44 PM EDT 07/09/2025 12:45 PM EDT Luanne Crawford MD LAB POINT OF CARE TEST DOCKED DEVICE UNSOLICITED RESULTS Final Result Performing Organization Address City/[facility] Co de Phone Number [facility] [address] [place] [address] * (ABNORMAL) POCT glucose meter (07/09/2025 12:19 [...] Comment 07/09/2025 12:21 PM EDT [facility] LAB Landing Scaler ID Jeana Bear 07/09/2025 12:21 PM EDT [facility] LAB Device ID [id number] 07/09/2025 12:21 PM EDT [facility] LAB Specimen Type POC Capillary 07/09/2025 12:21 PM EDT [facility] LAB Blood Capillary blood specimen / Unknown 07/09/2025 12:19 PM EDT 07/09/2025 12:21 PM EDT us Luanne Crawford MD LAB POINT OF CARE TEST DOCKED DEVICE UNSOLICITED RESULTS Final Result Performing Organization Address City/[facility] Co de Phone Number [facility] [address] [place] [address] * Blood Culture (Aerobic/Anaerobet Set) (07/09/2025 10:35 AM EDT) Culture No growth at day 5 KAROLINA 07/14/2025 12:02 PM EDT [facility] Blood Structure of antecubital vein / Unknown Venipuncture / Unknown 07/09/2025 10:35 AM EDT 07/09/2025 10:50 AM EDT us My Charles MD LAB MICROBIOLOGY - GENE RAL ORDERABLES Final Result [facility] [address] [place] [address] * Blood Culture (Aerobic/Anaerobet Set) (07/09/2025 10:35 AM EDT) Culture No growth at day 5 KAROLINA 07/14/2025 12:02 PM EDT [facility] Blood Structure of antecubital vein / Unknown Venipuncture / Unknown 07/09/2025 10:35 AM EDT 07/09/2025 10:50 AM EDT us My Charles MD LAB MICROBIOLOGY - GENE RAL ORDERABLES Final Result Performing Organization Address City/[facility]/ZIP Co de Phone Number [facility] [address] [place] [address] * (ABNORMAL) POCT glucose meter (07/09/2025 10:04 AM EDT) Pathologist [facility] POCT Glucose 114(H) 74 - 99 [...] for testing. Comment 07/09/2025 10:05 AM EDT [facility] Landing Scaler ID Jeana Bear 07/09/2025 10:05 AM EDT [facility] Device ID [id number] 07/09/2025 10:05 AM EDT [facility] Specimen Type POC Capillary 07/09/2025 10:05 AM EDT [facility] Blood Capillary blood specimen / Unknown 07/09/2025 10:04 AM EDT 07/09/2025 10:05 AM EDT us Luanne Crawford MD LAB POINT OF CARE TEST DOCKED DEVICE UNSOLICITED RESULTS Final Result Performing Organization Address City/[facility]/ZIP Co de Phone Number [facility] [address] [place] [address] * Multi Drug Resistance Test (07/09/2025 9:46 AM EDT) [facility] Culture No growth at day 1 07/10/2025 11:58 AM EDT [facility] Swab (Nares and Leann Rectal) Non-blood Collection / Unknown 07/09/2025 9:46 AM EDT 07/09/2025 10:09 AM EDT Narrative [facility] - 07/10/2025 11:58 AM EDT This test was developed and its performance characteristics determined by the [facility]. Although the media is FDA-approved, it is not FDA-approved for all specimen types submitted. The FDA has determined that such clearance or approval is not necessary. This test is used for surveillance purposes. It should not be regarded as investigational or for research. The [facility] is certified under the Clinical Laboratory Improvement Amendments of 1988 (CLIA-88) as qualified to perform high complexity clinical laboratory testing. us Luanne Crawford MD LAB MICROBIOLOGY - GENERAL ORDERABLES Final Result [facility] [address] [place] [address] * (ABNORMAL) Blood gas, arterial (07/09/2025 8:47 AM EDT) pH, Arterial 7.30(L) 7.35 - 7.45 LAB HEMATOLOGY METHOD 07/09/2025 8:55 AM EDT [facility] pCO2, Arterial 53(H) 35 - 48 mmHg LAB HEMATOLOGY METHOD 07/09/2025 8:55 AM EDT [facility] pO2, Arterial 173(H) 83 - 108 mmHg LAB HEMATOLOGY METHOD 07/09/2025 8:55 AM EDT [facility] SO2, Measured, Arterial 98 94 - 98 % LAB HEMATOLOGY METHOD 07/09/2025 8:55 AM EDT [facility] Base Excess, Arterial -0.8 -2.0 - 3.0 mmol/L LAB HEMATOLOGY METHOD 07/09/2025 8:55 AM EDT [facility] Bicarbonate, Calculated, Arterial 26 22 - 26 mmol/L LAB HEMATOLOGY METHOD 07/09/2025 8:55 AM EDT [facility] Hematocrit, Whole Blood 27.3(L) 34.0 - 45.0 % LAB HEMATOLOGY METHOD 07/09/2025 8:55 AM EDT [facility] Sodium, Whole Blood 140 136 - 145 mmol/L LAB HEMATOLOGY METHOD 07/09/2025 8:55 AM EDT [facility] Potassium, Whole Blood 2.9(L) 3.6 - 4.9 mmol/L LAB HEMATOLOGY METHOD 07/09/2025 8:55 AM EDT [facility] Chloride, Whole Blood 106 97 - 107 mmol/L LAB HEMATOLOGY METHOD 07/09/2025 8:55 AM EDT [facility] Glucose, Whole Blood 155(H) 74 - 99 mg/dL LAB HEMATOLOGY METHOD 07/09/2025 8:55 AM EDT [facility] Ionized Calcium, Whole Blood 5.0 4.6 - 5.1 mg/dL LAB HEMATOLOGY METHOD 07/09/2025 8:55 AM EDT [facility] Lactate, Arterial, Whole Blood 1.4 0.5 - 1.6 mmol/L LAB HEMATOLOGY METHOD 07/09/2025 8:55 AM EDT [facility] Blood Arterial blood specimen / Unknown Arterial Line / Unknown 07/09/2025 8:47 AM EDT 07/09/2025 8:54 AM EDT us Dorcas Hennessy MD LAB BLOOD ORDERABLES Final Resul t [facility] [address] [place] [address] * (ABNORMAL) POCT glucose meter (07/09/2025 8:01 AM EDT) [facility] Signature POCT Glucose 200(H) 74 - 99 [...] Comment 07/09/2025 8:03 AM EDT HEALTHCARE LAB Landing Scaler ID Jeana Bear 07/09/2025 8:03 AM EDT HEALTHCARE LAB Device ID [id number] 07/09/2025 8:03 AM EDT HEALTHCARE LAB Specimen Type POC Capillary 07/09/2025 8:03 AM EDT [facility] Blood Capillary blood specimen / Unknown 07/09/2025 8:01 AM EDT 07/09/2025 8:03 AM EDT us Luanne Crawford MD LAB POINT OF CARE TEST DOCKED DEVICE UNSOLICITED RESULTS Final Result [facility] [address] [place] [address] * [place] [facility], E/M 30-74 MINUTES (07/09/2025 7:15 [...] - 99 mg/dL 07/09/2025 6:20 AM EDT [facility] Comment:Accuracy of a glucos e result [...] 07/09/2025 6:20 AM EDT [facility] Landing Scaler ID Cheyanne Briceño 07/09/2025 6:20 AM EDT [facility] Device ID [id number] 07/09/2025 6:20 AM EDT [facility] Specimen Type POC Arterial 07/09/2025 6:20 AM EDT [facility] Blood Arterial blood specimen / Unknown 07/09/2025 6:05 AM EDT 07/09/2025 6:20 AM EDT Luanne Crawford MD LAB POINT OF CARE TEST DOCKED DEVICE UNSOLICITED RESULTS Final Result Performing Organization Address City/[facility] Co de Phone Number [facility] [address] [place] [address] * (ABNORMAL) Hemoglobin A1c (07/09/2025 4:57 AM EDT) Hemoglobin A1c 7.5(H) <5.7 % 07/09/2025 12:09 PM EDT [facility] Blood Arterial blood specimen / Unknown Venipuncture / Unknown 07/09/2025 4:57 AM EDT 07/09/2025 5:07 AM EDT Narrative [facility] - 07/09/2025 12:09 PM EDT HA1C Interpretive Data: Diagnosis of Diabetes: Diabetic > or = 6.5% Pre-diabetic 5.7 to 6.4% Non-diabetic < or = 5.6% Glycemic Targets for Type I and Type II Diabetics: Non- Adults <7.0% Adults <6.0% Children and Adolescents <7.5% Source: [place] [employer]. Standards of medical care in diabetes,2017. Diabetes Care.2017:40 (suppl 1):S1-S135. Dorcas Hennessy MD LAB BLOOD ORDERABLES Final Resul t [facility] [address] [place] [address] * Phosphorus (07/09/2025 4:57 AM EDT) Phosphorus, Plasma 4.1 2.5 - 4.5 mg/dL 07/09/2025 5:35 AM EDT [facility] Blood Arterial blood specimen / Unknown Venipuncture / Unknown 07/09/2025 4:57 AM EDT 07/09/2025 5:06 AM EDT us Luanne Crawford MD LAB BLOOD ORDERABLES Final Result [facility] [address] [place] [address] * Magnesium, Plasma (07/09/2025 4:57 AM EDT) Magnesium, Plasma 2.2 1.9 - 2.4 mg/dL 07/09/2025 5:35 AM EDT [facility] Blood Arterial blood specimen / Unknown Venipuncture / Unknown 07/09/2025 4:57 AM EDT 07/09/2025 5:06 AM EDT Luanne Crawford MD LAB BLOOD ORDERABLES Final Result Performing Organization Address [facility]/ZIP Co de Phone Number [facility] [address] [place] [address] * (ABNORMAL) Basic Metabolic Panel, Plasma (07/09/2025 4:57 AM EDT) Glucose, Plasma 235(H) 74 - 99 mg/dL 07/09/2025 5:35 AM EDT [facility] BUN, Plasma 30(H) 7 - 21 mg/dL 07/09/2025 5:35 AM EDT [facility] Creatinine, Plasma 1.58(H) 0.60 - 1.10 mg/dL 07/09/2025 5:35 AM EDT [facility] BUN/Creatinine Ratio 19 07/09/2025 5:35 AM EDT [facility] Sodium, Plasma 136 136 - 145 mmol/L 07/09/2025 5:35 AM EDT [facility] Potassium, Plasma 3.5(L) 3.6 - 4.9 mmol/L 07/09/2025 5:35 AM EDT [facility] Chloride, Plasma 101 97 - 107 mmol/L 07/09/2025 5:35 AM EDT [facility] CO2, Plasma 23 22 - 29 mmol/L 07/09/2025 5:35 AM EDT [facility] Anion Gap 12 6 - 16 mmol/L 07/09/2025 5:35 AM EDT [facility] Total Calcium, Plasma 9.2 8.9 - 10.2 mg/dL 07/09/2025 5:35 AM EDT [facility] eGFRcr 40.0 mL/min/1.7 3m*2 07/09/2025 5:35 AM EDT [facility] Comment:Reported eGFRcr in m L/min/1.73m2 is based the CKD-EPI 2020 equation that does not use a race coefficient. Blood Arterial blood specimen / Unknown Venipuncture / Unknown 07/09/2025 4:57 AM EDT 07/09/2025 5:06 AM EDT us Luanne Crawford MD LAB BLOOD ORDERABLES Final Result [facility] [address] [place] [address] * (ABNORMAL) CBC W/O Differential (07/09/2025 4:57 AM EDT) WBC Count 32.25(H) 3.70 - 10.30 10*3/uL LAB HEMATOLOGY METHOD 07/09/2025 5:15 AM EDT [facility] RBC Count 3.89(L) 3.90 - 5.20 10*6/uL LAB HEMATOLOGY METHOD 07/09/2025 5:15 AM EDT [facility] HGB 11.0(L) 11.2 - 15.7 g/dL LAB HEMATOLOGY METHOD 07/09/2025 5:15 AM EDT [facility] HCT 33.4(L) 34.0 - 45.0 % LAB HEMATOLOGY METHOD 07/09/2025 5:15 AM EDT [facility] Platelet Count 358 155 - 369 10*3/uL LAB HEMATOLOGY METHOD 07/09/2025 5:15 AM EDT [facility] MCV 86 79 - 98 fL LAB HEMATOLOGY METHOD 07/09/2025 5:15 AM EDT [facility] MCH 28.3 26.0 - 32.0 pg LAB HEMATOLOGY METHOD 07/09/2025 5:15 AM EDT [facility] MCHC 32.9 30.7 - 35.5 g/dL LAB HEMATOLOGY METHOD 07/09/2025 5:15 AM EDT [facility] RDW 17.4(H) 11.5 - 14.5 % LAB HEMATOLOGY METHOD 07/09/2025 5:15 AM EDT [facility] MPV 10.0 8.8 - 12.5 fL LAB HEMATOLOGY METHOD 07/09/2025 5:15 AM EDT [facility] nRBC 0.0 <=0.0 per 100 WBCs LAB HEMATOLOGY METHOD 07/09/2025 5:15 AM EDT [facility] Blood Arterial blood specimen / Unknown Venipuncture / Unknown 07/09/2025 4:57 AM EDT 07/09/2025 5:07 AM EDT us Luanne Crawford MD LAB BLOOD ORDERABLES Final Result [facility] [address] [place] [address] * (ABNORMAL) POCT glucose meter (07/09/2025 4:03 [...] Comment 07/09/2025 4:05 AM EDT [facility]ALTHCARE LAB Landing Scaler ID Cheyanne Briceño 07/09/2025 4:05 AM EDT HEALTHCARE LAB Device ID [id number] 07/09/2025 4:05 AM EDT HEALTHCARE LAB Specimen Type POC Arterial 07/09/2025 4:05 AM EDT [facility] Blood Arterial blood specimen / Unknown 07/09/2025 4:03 AM EDT 07/09/2025 4:05 AM EDT us Luanne Crawford MD LAB POINT OF CARE TEST DOCKED DEVICE UNSOLICITED RESULTS Final Result [facility] [address] [place] [address] * XR Chest 1 View (07/09/2025 3:42 [...] POCT glucose meter (07/09/2025 2:15 AM EDT) [facility] POCT Glucose 272(H) 74 - 99 mg/dL [...] Comment 07/09/2025 2:17 AM EDT HEALTHCARE LAB Landing Scaler ID Cheyanne Briceño 07/09/2025 2:17 AM EDT HEALTHCARE LAB Device ID [id number] 07/09/2025 2:17 AM EDT [facility] Specimen Type POC Arterial 07/09/2025 2:17 AM EDT [facility] Blood Arterial blood specimen / Unknown 07/09/2025 2:15 AM EDT 07/09/2025 2:17 AM EDT us Luanne Crawford MD LAB POINT OF CARE TEST DOCKED DEVICE UNSOLICITED RESULTS Final Result [facility]ARE [facility] [address] [place] [address] * (ABNORMAL) Blood gas panel, arterial (07/09/2025 2:11 AM EDT) [facility] pH, Arterial 7.25(LL) 7.35 - 7.45 LAB HEMATOLOGY METHOD 07/09/2025 2:23 AM EDT [facility] pCO2, Arterial 56(H) 35 - 48 mmHg LAB HEMATOLOGY METHOD 07/09/2025 2:23 AM EDT [facility] pO2, Arterial 67(L) 83 - 108 mmHg LAB HEMATOLOGY METHOD 07/09/2025 2:23 AM EDT [facility] SO2, Measured, Arterial 91(L) 94 - 98 % LAB HEMATOLOGY METHOD 07/09/2025 2:23 AM EDT [facility] Base Excess, Arterial -2.7(L) -2.0 - 3.0 mmol/L LAB HEMATOLOGY METHOD 07/09/2025 2:23 AM EDT [facility] Bicarbonate, Calculated, Arterial 25 22 - 26 mmol/L LAB HEMATOLOGY METHOD 07/09/2025 2:23 AM EDT [facility] Hematocrit, Whole Blood 31.5(L) 34.0 - 45.0 % LAB HEMATOLOGY METHOD 07/09/2025 2:23 AM EDT [facility] Sodium, Whole Blood 135(L) 136 - 145 mmol/L LAB HEMATOLOGY METHOD 07/09/2025 2:23 AM EDT [facility] Potassium, Whole Blood 3.5(L) 3.6 - 4.9 mmol/L LAB HEMATOLOGY METHOD 07/09/2025 2:23 AM EDT [facility] Chloride, Whole Blood 103 97 - 107 mmol/L LAB HEMATOLOGY METHOD 07/09/2025 2:23 AM EDT [facility] Glucose, Whole Blood 279(H) 74 - 99 mg/dL LAB HEMATOLOGY METHOD 07/09/2025 2:23 AM EDT [facility] Ionized Calcium, Whole Blood 4.9 4.6 - 5.1 mg/dL LAB HEMATOLOGY METHOD 07/09/2025 2:23 AM EDT [facility] Lactate, Arterial, Whole Blood 1.2 0.5 - 1.6 mmol/L LAB HEMATOLOGY METHOD 07/09/2025 2:23 AM EDT [facility] Blood Arterial blood specimen / Unknown Arterial Puncture / Unknown 07/09/2025 2:11 AM EDT 07/09/2025 2:21 AM EDT us Luanne Crawford MD LAB BLOOD ORDERABLES Final Result Performing Organization Address City/State/[facility] Co de Phone Number [facility] [address] [place] [address] * (ABNORMAL) POCT glucose meter (07/09/2025 1:22 AM EDT) POCT Glucose 271(H) 74 - 99 mg/dL 07/09/2025 1:24 AM EDT [facility] Comment:Accuracy of a glucos e [...] Comment 07/09/2025 1:24 AM EDT [facility] Landing Scaler ID Cheyanne Briceño 07/09/2025 1:24 AM EDT [facility] Device ID [id number] 07/09/2025 1:24 AM EDT [facility] Specimen Type POC Arterial 07/09/2025 1:24 AM EDT [facility] Blood Arterial blood specimen / Unknown 07/09/2025 1:22 AM EDT 07/09/2025 1:24 AM EDT Luanne Crawford MD LAB POINT OF CARE TEST DOCKED DEVICE UNSOLICITED RESULTS Final Result Performing Organization Address City/[facility] Co de Phone Number [facility] [address] [place] [address] * (ABNORMAL) POCT glucose meter (07/09/2025 12:06 [...] Comment 07/09/2025 12:08 AM EDT [facility] Landing Scaler ID Cheyanne Briceño 07/09/2025 12:08 AM EDT HEALTH[facility]ARE LAB Device ID [id number] 07/09/2025 12:08 AM EDT HEALTHCARE LAB Specimen Type POC Arterial 07/09/2025 12:08 AM EDT [facility]ALTH[facility]ARE LAB Blood Arterial blood specimen / Unknown 07/09/2025 12:06 AM EDT 07/09/2025 12:08 AM EDT Luanne Crawford MD LAB POINT OF CARE TEST DOCKED DEVICE UNSOLICITED RESULTS Final Result Performing Organization Address City/[facility]/ZIP Co de Phone Number [facility] [address] [place] [address] * APTT (07/08/2025 11:53 PM EDT) aPTT 25 25 - 35 sec LAB COAGULATION METHOD 07/09/2025 12:32 AM EDT [facility] Blood Venous blood specimen / Unknown Venipuncture / Unknown 07/08/2025 11:53 PM EDT 07/08/2025 11:59 PM EDT us Luanne Crawford MD LAB BLOOD ORDERABLES Final Result Performing Organization Address [facility] Co de Phone Number [facility] [address] [place] [address] * (ABNORMAL) Protime-INR (07/08/2025 11:53 PM EDT) Prothrombin Time 15.2(H) 12.0 - 14.3 sec LAB COAGULATION METHOD 07/09/2025 12:32 AM EDT [facility] INR 1.2(H) 0.9 - 1.1 LAB COAGULATION METHOD 07/09/2025 12:32 AM EDT [facility] Blood Venous blood specimen / Unknown Venipuncture / Unknown 07/08/2025 11:53 PM EDT 07/08/2025 11:59 PM EDT Narrative [facility] - 07/09/2025 12:32 AM EDT [...] BLOOD ORDERABLES Final Result Performing Organization Address [facility] Co de Phone Number [facility] [address] [place] [address] * Phosphorus, Plasma (07/08/2025 11:52 PM EDT) Phosphorus, Plasma 3.6 2.5 - 4.5 mg/dL 07/09/2025 12:27 AM EDT [facility] Blood Venous blood specimen / Unknown Venipuncture / Unknown 07/08/2025 11:52 PM EDT 07/08/2025 11:59 PM EDT Luanne Crawford MD LAB BLOOD ORDERABLES Final Result Performing Organization Address [facility]/ZIP Co de Phone Number [facility] [address] [place] [address] * (ABNORMAL) Magnesium, Plasma (07/08/2025 11:52 PM EDT) Magnesium, Plasma 1.8(L) 1.9 - 2.4 mg/dL 07/09/2025 12:27 AM EDT [facility] Blood Venous blood specimen / Unknown Venipuncture / Unknown 07/08/2025 11:52 PM EDT 07/08/2025 11:59 PM EDT Luanne Crawford MD LAB BLOOD ORDERABLES Final Result Performing Organization Address [facility]/ZIP Co de Phone Number [facility] [address] [place] [address] * (ABNORMAL) Basic Metabolic Panel, Plasma (07/08/2025 11:52 PM EDT) Glucose, Plasma 314(H) 74 - 99 mg/dL 07/09/2025 12:27 AM EDT [facility] BUN, Plasma 32(H) 7 - 21 mg/dL 07/09/2025 12:27 AM EDT [facility] Creatinine, Plasma 1.80(H) 0.60 - 1.10 mg/dL 07/09/2025 12:27 AM EDT [facility] BUN/Creatinine Ratio 18 07/09/2025 12:27 AM EDT [facility] Sodium, Plasma 136 136 - 145 mmol/L 07/09/2025 12:27 AM EDT [facility] Potassium, Plasma 3.6 3.6 - 4.9 mmol/L 07/09/2025 12:27 AM EDT [facility] Chloride, Plasma 100 97 - 107 mmol/L 07/09/2025 12:27 AM EDT [facility] CO2, Plasma 23 22 - 29 mmol/L 07/09/2025 12:27 AM EDT [facility] Anion Gap 13 6 - 16 mmol/L 07/09/2025 12:27 AM EDT [facility] Total Calcium, Plasma 8.9 8.9 - 10.2 mg/dL 07/09/2025 12:27 AM EDT [facility] eGFRcr 34.2 mL/min/1.7 3m*2 07/09/2025 12:27 AM EDT [facility] Comment:Reported eGFRcr in m L/min/1.73m2 is based the CKD-EPI 2020 equation that does not use a race coefficient. Blood Venous blood specimen / Unknown Venipuncture / Unknown 07/08/2025 11:52 PM EDT 07/08/2025 11:59 PM EDT us Luanne Crawford MD LAB BLOOD ORDERABLES Final Result [facility] [address] [place] [address] * (ABNORMAL) CBC W/O Differential (07/08/2025 11:52 PM EDT) WBC Count 22.50(H) 3.70 - 10.30 10*3/uL LAB HEMATOLOGY METHOD 07/09/2025 12:16 AM EDT [facility] RBC Count 3.60(L) 3.90 - 5.20 10*6/uL LAB HEMATOLOGY METHOD 07/09/2025 12:16 AM EDT [facility] HGB 10.0(L) 11.2 - 15.7 g/dL LAB HEMATOLOGY METHOD 07/09/2025 12:16 AM EDT [facility] HCT 30.8(L) 34.0 - 45.0 % LAB HEMATOLOGY METHOD 07/09/2025 12:16 AM EDT [facility] Platelet Count 273 155 - 369 10*3/uL LAB HEMATOLOGY METHOD 07/09/2025 12:16 AM EDT [facility] MCV 86 79 - 98 fL LAB HEMATOLOGY METHOD 07/09/2025 12:16 AM EDT [facility] MCH 27.8 26.0 - 32.0 pg LAB HEMATOLOGY METHOD 07/09/2025 12:16 AM EDT [facility] MCHC 32.5 30.7 - 35.5 g/dL LAB HEMATOLOGY METHOD 07/09/2025 12:16 AM EDT [facility] RDW 16.9(H) 11.5 - 14.5 % LAB HEMATOLOGY METHOD 07/09/2025 12:16 AM EDT [facility] MPV 10.3 8.8 - 12.5 fL LAB HEMATOLOGY METHOD 07/09/2025 12:16 AM EDT [facility] nRBC 0.0 <=0.0 per 100 WBCs LAB HEMATOLOGY METHOD 07/09/2025 12:16 AM EDT [facility] Blood Venous blood specimen / Unknown Venipuncture / Unknown 07/08/2025 11:52 PM EDT 07/08/2025 11:59 PM EDT Luanne Crawford MD LAB BLOOD ORDERABLES Final Result [facility] [address] [place] [address] * Richie auris Surveillance by PCR (07/08/2025 11:50 PM EDT) Richie auris PCR Result Not Detected Not Detected 07/09/2025 11:26 AM EDT [facility] Swab (Axilla and Groin) Non-blood Collection / Unknown 07/08/2025 11:50 PM EDT 07/09/2025 12:17 AM EDT Narrative [facility] - 07/09/2025 11:26 AM EDT This PCR assay was developed and its performance characteristics determined by [facility] as appropriate for clinical purposes. This assay has not been cleared or approved by the FDA, but is performed in a CLIA regulated laboratory that is qualified to perform high-complexity testing. Luanne Crawford MD LAB MICROBIOLOGY - GENERAL ORDERABLES Final Result Performing Organization Address City/[facility]/ZIP Co de Phone Number [facility] [address] [place] [address] * Multi Drug Resistance Test (07/08/2025 11:50 PM EDT) Culture No growth at day 1 07/10/2025 5:45 AM EDT [facility] Swab (Nares and Leann Rectal) Non-blood Collection / Unknown 07/08/2025 11:50 PM EDT 07/09/2025 12:17 AM EDT Narrative [facility] - 07/10/2025 5:45 AM EDT This test was developed and its performance characteristics determined by the [facility]. Although the media is FDA-approved, it is not FDA-approved for all specimen types submitted. The FDA has determined that such clearance or approval is not necessary. This test is used for surveillance purposes. It should not be regarded as investigational or for research. The [facility] is certified under the Clinical Laboratory Improvement Amendments of 1988 (CLIA-88) as qualified to perform high complexity clinical laboratory testing. us Luanne Crawford MD LAB MICROBIOLOGY - GENERAL ORDERABLES Final Result [facility] [address] [place] [address] * (ABNORMAL) Blood gas, arterial (07/08/2025 11:50 PM EDT) pH, Arterial 7.27(L) 7.35 - 7.45 LAB HEMATOLOGY METHOD 07/09/2025 12:00 AM EDT [facility] pCO2, Arterial 53(H) 35 - 48 mmHg LAB HEMATOLOGY METHOD 07/09/2025 12:00 AM EDT [facility] pO2, Arterial 114(H) 83 - 108 mmHg LAB HEMATOLOGY METHOD 07/09/2025 12:00 AM EDT [facility] SO2, Measured, Arterial 99(H) 94 - 98 % LAB HEMATOLOGY METHOD 07/09/2025 12:00 AM EDT [facility] Base Excess, Arterial -3.1(L) -2.0 - 3.0 mmol/L LAB HEMATOLOGY METHOD 07/09/2025 12:00 AM EDT [facility] Bicarbonate, Calculated, Arterial 24 22 - 26 mmol/L LAB HEMATOLOGY METHOD 07/09/2025 12:00 AM EDT [facility] Hematocrit, Whole Blood 31.0(L) 34.0 - 45.0 % LAB HEMATOLOGY METHOD 07/09/2025 12:00 AM EDT [facility] Sodium, Whole Blood 134(L) 136 - 145 mmol/L LAB HEMATOLOGY METHOD 07/09/2025 12:00 AM EDT [facility] Potassium, Whole Blood 3.5(L) 3.6 - 4.9 mmol/L LAB HEMATOLOGY METHOD 07/09/2025 12:00 AM EDT [facility] Chloride, Whole Blood 101 97 - 107 mmol/L LAB HEMATOLOGY METHOD 07/09/2025 12:00 AM EDT [facility] Glucose, Whole Blood 315(H) 74 - 99 mg/dL LAB HEMATOLOGY METHOD 07/09/2025 12:00 AM EDT [facility] Ionized Calcium, Whole Blood 5.1 4.6 - 5.1 mg/dL LAB HEMATOLOGY METHOD 07/09/2025 12:00 AM EDT [facility] Lactate, Arterial, Whole Blood 1.7(H) 0.5 - 1.6 mmol/L LAB HEMATOLOGY METHOD 07/09/2025 12:00 AM EDT [facility] Blood Arterial blood specimen / Unknown Arterial Puncture / Unknown 07/08/2025 11:50 PM EDT 07/08/2025 11:59 PM EDT us Richard Betts CRNA LAB BLOOD ORDERABLES Sarah l Result [facility] [address] [place] [address] * (ABNORMAL) POCT glucose meter (07/08/2025 11:49 PM EDT) Pathologist [facility] POCT Glucose 316(H) 74 - 99 mg/dL 07/08/2025 11:50 PM EDT [facility] Comment:Accuracy of a glucos e [...] Comment 07/08/2025 11:50 PM EDT HEALTHCARE LAB Landing Scaler ID Mary Cotto 07/08/2025 11:50 PM EDT HEALTHCARE LAB Device ID [id number] 07/08/2025 11:50 PM EDT HEALTHCARE LAB Specimen Type POC Arterial 07/08/2025 11:50 PM EDT HEALTHCARE LAB Blood Arterial blood specimen / Unknown 07/08/2025 11:49 PM EDT 07/08/2025 11:50 PM EDT us Luanne Crawford MD LAB POINT OF CARE TEST DOCKED DEVICE UNSOLICITED RESULTS Final Result [facility] [address] [place] [address] * (ABNORMAL) Tissue Culture and Gram Stain (07/08/2025 10:48 PM EDT) Culture Light Growth 07/13/2025 1:13 PM EDT [facility] Culture 1+ Schaalia turicensis (formerly known as Actinomyces turicensis)(A) 07/13/2025 1:13 PM EDT [facility] Comment: The organism value for this result has been updated. These results have been appended to the previously preliminary verified report. This is a corrected result. Previous organism was Gram positive anthony on 07/11/2025 at 1052 EDT. Culture 1+ Staphylococcus hominis(A) 07/13/2025 1:13 PM EDT [facility] Comment: This isolate has been identified using the FDA Approved [employer]DI [employer] CA System The organism value for this result has been updated. These results have been appended to the previously preliminary verified report. Gram Stain Result Few Polymorphonuclear leukocytes(A) 07/13/2025 1:13 PM EDT [facility] Gram Stain Result Numerous Gram negative rods(A) 07/13/2025 1:13 PM EDT [facility] Gram Stain Result Few Gram positive cocci in pairs(A) 07/13/2025 1:13 PM EDT [facility] Tissue Topography unknown / Unknown 07/08/2025 10:48 PM EDT 07/09/2025 12:14 AM EDT Comment:Pre-op diagnosis: Necrotizing fasciitis (CMS/HCC) [M72.6] Result [facility] Luanne Crawford MD LAB MICROBIOLOGY - GENERAL ORDERABLES Final Result [facility] [address] [place] [address] * Transfuse fresh frozen plasma (07/08/2025 10:35 PM EDT) Richard Betts AUTOMATIC BOW MAKER MACHINE TENDER BLOOD TRANSFUSION ORDERAB LES Final Result * Transfuse RBC (07/08/2025 10:29 PM EDT) Richard Betts AUTOMATIC BOW MAKER MACHINE TENDER BLOOD TRANSFUSION ORDERAB LES Final Result * (ABNORMAL) Blood gas panel, arterial (07/08/2025 10:08 PM EDT) pH, Arterial 7.28(L) 7.35 - 7.45 LAB HEMATOLOGY METHOD 07/08/2025 10:15 PM EDT [facility] pCO2, Arterial 50(H) 35 - 48 mmHg LAB HEMATOLOGY METHOD 07/08/2025 10:15 PM EDT [facility] pO2, Arterial 121(H) 83 - 108 mmHg LAB HEMATOLOGY METHOD 07/08/2025 10:15 PM EDT [facility] SO2, Measured, Arterial 99(H) 94 - 98 % LAB HEMATOLOGY METHOD 07/08/2025 10:15 PM EDT [facility] Base Excess, Arterial -3.6(L) -2.0 - 3.0 mmol/L LAB HEMATOLOGY METHOD 07/08/2025 10:15 PM EDT [facility] Bicarbonate, Calculated, Arterial 23 22 - 26 mmol/L LAB HEMATOLOGY METHOD 07/08/2025 10:15 PM EDT [facility] Hematocrit, Whole Blood 29.9(L) 34.0 - 45.0 % LAB HEMATOLOGY METHOD 07/08/2025 10:15 PM EDT [facility] Sodium, Whole Blood 133(L) 136 - 145 mmol/L LAB HEMATOLOGY METHOD 07/08/2025 10:15 PM EDT [facility] Potassium, Whole Blood 3.5(L) 3.6 - 4.9 mmol/L LAB HEMATOLOGY METHOD 07/08/2025 10:15 PM EDT [facility] Chloride, Whole Blood 101 97 - 107 mmol/L LAB HEMATOLOGY METHOD 07/08/2025 10:15 PM EDT [facility] Glucose, Whole Blood 351(H) 74 - 99 mg/dL LAB HEMATOLOGY METHOD 07/08/2025 10:15 PM EDT [facility] Ionized Calcium, Whole Blood 4.5(L) 4.6 - 5.1 mg/dL LAB HEMATOLOGY METHOD 07/08/2025 10:15 PM EDT [facility] Lactate, Arterial, Whole Blood 2.1(H) 0.5 - 1.6 mmol/L LAB HEMATOLOGY METHOD 07/08/2025 10:15 PM EDT [facility] Blood Arterial blood specimen / Unknown 07/08/2025 10:08 PM EDT 07/08/2025 10:14 PM EDT Comment:Pre-op diagnosis: Necrotizing fasciitis (CMS/HCC) [M72.6] us Luanne Crawford MD LAB BLOOD ORDERABLES Final Result [facility] [address] [place] [address] * Surgical Pathology Exam (07/08/2025 10:07 PM EDT) Case Report Surgical Pathology Case: [id number] Authorizing Provider: Luanne Crawford MD Collected: 07/08/20257 Ordering Location: [facility] A OPERATING ROOM Received: 07/09/2025 0740 Pathologist: Boaz Fernandez MD Specimens: A) - Other (specify site), saphenous vein B) - Other (specify site), right leg 07/10/2025 3:45 PM EDT [facility] Final Diagnosis A. SAPHENOUS VEIN SEGMENT, REMOVAL: - SCLEROTIC VEIN WITH ADVENTITIAL INFLAMMATION. B. RIGHT LEG TISSUE DEBRIDEMENT: - ACUTE NECROTIZING FASCIITIS OF SKIN AND SOFT TISSUE. 07/10/2025 3:45 PM EDT [facility] at 1545 EDT Clinical Information Necrotizing fasciitis; post recent boil self popped wound. 50 y.o. female with PMH of DM, hidradenitis supparativa, current smoker (1.5 ppd), UTI, depression, anxiety, asthma, HLD, Celiac disease, 07/10/2025 3:45 PM EDT [facility] Gross Description A. SAPHENOUS VEIN Specimen is received fresh and placed in formalin labeled saphenous vein. Received is a segment of vessel that measures 8.5 cm in length and up to 0.7 cm in diameter. Specimen is sectioned to reveal a pinpoint lumen with dried blood. Smelting Engineer sections are taken and submitted in cassette A1. Cold Time: 8h 56m Abhishek Baptiste MD B. RIGHT LEG Specimen is received fresh labeled right leg. Received are numerous fragments of skin and underlying soft tissue that measure in aggregate 25.0 x 25.0 x 7.5 cm. Scattered areas of skin and soft tissue notable for being green-black, foul-smelling and extensively necrotic. Smelting Engineer sections are taken and submitted in cassettes B1-B2. Abhishek Baptiste MD 07/10/2025 3:45 PM EDT [facility] Note: A resident was involved in the service. I attest I examined the relevant preparations for the specimens and confirmed the diagnosis or interpretation. 07/10/2025 3:45 PM EDT [facility] Tissue Topography unknown / Unknown 07/08/2025 10:07 PM EDT 07/09/2025 7:40 AM EDT Comment:Pre-op diagnosis: Necrotizing fasciitis (CMS/HCC) [M72.6] Tissue specimen (specimen) Topography unknown / Unknown 07/08/2025 10:49 PM EDT 07/09/2025 7:40 AM EDT Comment:Pre-op diagnosis: Necrotizing fasciitis (CMS/HCC) [M72.6] us Luanne Crawford MD LAB PATHOLOGY ORDERABLES F inal Result [facility] [address] [place] [address] * Transfuse fresh frozen plasma (07/08/2025 10:04 PM EDT) Richard Betts AUTOMATIC BOW MAKER MACHINE TENDER BLOOD TRANSFUSION ORDERAB LES Final Result * Transfuse fresh frozen plasma: 1 Units (07/08/2025 10:04 PM EDT) Richard Betts AUTOMATIC BOW MAKER MACHINE TENDER BLOOD TRANSFUSION ORDERAB LES Final Result * Transfuse RBC (07/08/2025 9:41 PM EDT) Richard Betts AUTOMATIC BOW MAKER MACHINE TENDER BLOOD TRANSFUSION ORDERAB LES Final Result * Transfuse RBC: 1 Units (07/08/2025 9:41 PM EDT) Richard Betts AUTOMATIC BOW MAKER MACHINE TENDER BLOOD TRANSFUSION ORDERAB LES Final Result * Prepare Fresh Frozen Plasma: 2 Units (07/08/2025 9:24 PM EDT) Product Code G5412F09 [facility] BLOO D BANK Dispense Status Transfused BLOOD BANK Blood Expiration Date [id number] BLOOD BANK Unit Number [id number] CH B LOOD BANK Product Blood Type 5100 BLOOD BANK Blood Type O+ CH BLOOD BANK Product Code B3010W10 CH BLOO D BANK Dispense Status Transfused BLOOD BANK Blood Expiration Date [id number] BLOOD BANK Unit Number [id number] CH B LOOD BANK Product Blood Type 5100 BLOOD BANK Blood Type O+ CH BLOOD BANK Blood Venous blood specimen / Unknown Richard Betts AUTOMATIC BOW MAKER MACHINE TENDER BLOOD BANK PRODUCT ORDERA BLES Final Result Performing Organization Address City/State/[facility] Co de Phone Number BLOOD BANK [address] [place] [address], * Prepare Leukocyte Reduced RBC: 2 Units (07/08/2025 9:23 PM EDT) Product Code G9294W64 CH BLOO D BANK Dispense Status Transfused BLOOD BANK Blood Expiration Date [id number] BLOOD BANK Unit Number [id number] CH B LOOD BANK Product Blood Type 5100 BLOOD BANK Blood Type O+ CH BLOOD BANK Crossmatch Compatible BLOOD BANK Product Code [id number] CH BLOO D BANK Dispense Status Transfused CH BLOOD BANK Blood Expiration Date [id number] BLOOD BANK Unit Number [id number] B LOOD BANK Product Blood Type 5100 BLOOD BANK Blood Type O+ BLOOD BANK Crossmatch Compatible BLOOD BANK Other us Richard Betts CRNA BLOOD BANK PRODUCT ORDERA BLES Final Result BLOOD BANK [address] [place] [address], * (ABNORMAL) Abscess Culture and Gram Stain (07/08/2025 9:06 PM EDT) Culture Light Growth 07/13/2025 1:13 PM EDT [facility] Culture 1+ Mixed skin silvestre(A) 07/13/2025 1:13 PM EDT [facility] Comment: The organism value for this result has been updated. These results have been appended to the previously preliminary verified report. Edited result: Previously reported as Gram positive cocci on 07/10/2025 at 1154 EDT. This is a corrected result. Previous organism was Staphylococcus species on 07/11/2025 at 0633 EDT. Culture 1+ Schaalia turicensis (formerly known as Actinomyces turicensis)(A) 07/13/2025 1:13 PM EDT [facility] Comment: This result was determined by MALDI tof Mass spectrometry. This assay was developed and its performance characteristics determined by [facility] as appropriate for clinical [...] Gram positive cocci(A) 07/13/2025 1:13 PM EDT [facility] Gram Stain Result Few Gram variable rods(A) 07/13/2025 1:13 PM EDT [facility] Gram Stain Result Moderate Gram positive rods(A) 07/13/2025 1:13 PM EDT [facility] Gram Stain Result Numerous Gram negative rods(A) 07/13/2025 1:13 PM EDT [facility] Gram Stain Result Numerous Gram negative coccobacilli(A) 07/13/2025 1:13 PM EDT [facility] Gram Stain Result Moderate Polymorphonuclear leukocytes(A) 07/13/2025 1:13 PM EDT [facility] Swab Topography unknown / Unknown 07/08/2025 9:06 PM EDT 07/08/2025 9:15 PM EDT Comment:Pre-op diagnosis: Necrotizing fasciitis (CMS/HCC) [M72.6] us Luanne Crawford MD LAB MICROBIOLOGY - GENERAL ORDERABLES Final Result [facility] [address] [place] [address] * (ABNORMAL) POCT arterial blood gas gem (07/08/2025 8:51 PM EDT) pH, Arterial 7.28(L) 7.35 - 7.45 07/08/2025 8:53 PM EDT [facility] pCO2, Arterial 53(H) 35 - 48 mm Hg 07/08/2025 8:53 PM EDT [facility] pO2, Arterial 152(H) 83 - 108 mm Hg 07/08/2025 8:53 PM EDT [facility] SO2, Arterial 99(H) 94 - 98 % 07/08/2025 8:53 PM EDT [facility] Base Excess, Arterial -2.3(L) -2 - 3 mmol/L 07/08/2025 8:53 PM EDT [facility] HCO3, Arterial 24.9 22 - 26 mmol/L 07/08/2025 8:53 PM EDT [facility] Total Hemoglobin, Arterial, Whole Blood 10.9(L) 11.2 - 15.7 g/dL 07/08/2025 8:53 PM EDT [facility]ALTH[facility]ARE LAB Hematocrit, Arterial 33.0(L) 34.0 - 45.0 % 07/08/2025 8:53 PM EDT [facility] Sodium, Arterial 131(L) 136 - 145 mmol/L 07/08/2025 8:53 PM EDT [facility] Potassium, Arterial 3.8 3.6 - 4.9 mmol/L 07/08/2025 8:53 PM EDT [facility] Chloride, Whole Blood 98 97 - 107 mmol/L 07/08/2025 8:53 PM EDT [facility] Glucose, Arterial 418(H) 74 - 99 mg/dL 07/08/2025 8:53 PM EDT [facility] Ionized Calcium, Arterial 4.9 4.6 - 5.1 mg/dL 07/08/2025 8:53 PM EDT [facility] Lactate, Arterial 1.6 0.5 - 1.6 mmol/L 07/08/2025 8:53 PM EDT [facility] Body Temperature 37.0 Celsius 07/08/2025 8:53 PM EDT [facility] pH, Temp Corrected, Arterial 7.28(L) 7.35 - 7.45 07/08/2025 8:53 PM EDT [facility] pCO2, Temp Corrected, Arterial 53(H) 35 - 48 mm Hg 07/08/2025 8:53 PM EDT [facility] pO2, Temp Corrected, Arterial 152(H) 83 - 108 mm Hg 07/08/2025 8:53 PM EDT [facility] Landing Scaler ID Yadi Goel 07/08/2025 8:53 PM EDT [facility] Blood, Arterial Whole blood specimen / Unknown 07/08/2025 8:51 PM EDT 07/08/2025 8:53 PM EDT us Luanne Crawford MD LAB POINT OF CARE TEST DOCKED DEVICE UNSOLICITED RESULTS Final Result [facility] [address] [place] [id number] * ED HIV 1/2 Antibody/Antigen Screen w/Reflex to HIV 1/2 Differentiation (07/08/2025 6:14 PM EDT) [facility] HIV 1 & 2 Antibody/Antigen Screen Non Reactive Non Reactive 07/08/2025 7:12 PM EDT [facility] Comment:Screening for HIV 1 & 2 antibodies, and P24 antigen is NONREACTIVE. No confirmatory testing is required. Blood Venous blood specimen / Unknown Venipuncture / Unknown 07/08/2025 6:14 PM EDT 07/08/2025 6:30 PM EDT My Charles MD LAB BLOOD ORDERABLES Fi nal Result Performing Organization Address City/[facility]/ZIP Co de Phone Number [facility] [address] [place] [address] * Hepatitis C Antibody - ED (07/08/2025 6:14 PM EDT) Pathologist [facility] Hepatitis C Antibody Negative Negative 07/08/2025 7:12 PM EDT [facility] Blood Venous blood specimen / Unknown Venipuncture / Unknown 07/08/2025 6:14 PM EDT 07/08/2025 6:30 PM EDT My Charles MD LAB BLOOD ORDERABLES Fi nal Result Performing Organization Address [facility] Co de Phone Number [facility] [address] [place] [address] * (ABNORMAL) C-Reactive protein (07/08/2025 6:14 PM EDT) [facility] CRP, Plasma 462.2(H) <=8.0 mg/L 07/08/2025 7:18 PM EDT [facility] Blood Venous blood specimen / Unknown Venipuncture / Unknown 07/08/2025 6:14 PM EDT 07/08/2025 6:23 PM EDT Narrative [facility] - 07/08/2025 7:18 PM EDT This CRP test is appropriate for assessment of infection, systemic inflammation and/or tissue injury. To assess cardiovascular disease risk order high sensitivity CRP (CRPH). My Charles MD LAB BLOOD ORDERABLES Fi nal Result Performing Organization Address City/[facility] Co de Phone Number [facility] [address] [place] [address] * (ABNORMAL) Lactic acid, venous (07/08/2025 6:14 PM EDT) [facility] Lactate, Venous, Whole Blood 2.6(H) 0.5 - 2.2 mmol/L LAB HEMATOLOGY METHOD 07/08/2025 6:29 PM EDT [facility] Blood Venous blood specimen / Unknown Venipuncture / Unknown 07/08/2025 6:14 PM EDT 07/08/2025 6:23 PM EDT My Charles MD LAB BLOOD ORDERABLES Fi nal Result Performing Organization Address [facility]/ZIP Co de Phone Number [facility] [address] [place] [address] * Type and screen (07/08/2025 6:14 PM [...] ORD ERABLES Final Result Performing Organization Address [facility] de Phone Number BLOOD BANK [address] [place] [address], * (ABNORMAL) PT-INR (07/08/2025 6:14 PM EDT) Prothrombin Time 15.3(H) 12.0 - 14.3 sec 07/08/2025 6:56 PM EDT [facility] INR 1.2(H) 0.9 - 1.1 07/08/2025 6:56 PM EDT [facility] Blood Venous blood specimen / Unknown Venipuncture / Unknown 07/08/2025 6:14 PM EDT 07/08/2025 6:23 PM EDT Narrative [facility] - 07/08/2025 6:56 PM EDT OPTIMAL [...] recurrent [place] INR 2.5 to 3.5 us My Charles MD LAB BLOOD ORDERABLES Fi nal Result [facility] [address] [place] [address] * (ABNORMAL) CBC w/diff (07/08/2025 6:14 PM EDT) [facility] Signature WBC Count 26.15(H) 3.70 - 10.30 10*3/uL LAB HEMATOLOGY METHOD 07/08/2025 9:04 PM EDT [facility] RBC Count 3.97 3.90 - 5.20 10*6/uL LAB HEMATOLOGY METHOD 07/08/2025 9:04 PM EDT [facility] HGB 10.9(L) 11.2 - 15.7 g/dL LAB HEMATOLOGY METHOD 07/08/2025 9:04 PM EDT [facility] HCT 33.6(L) 34.0 - 45.0 % LAB HEMATOLOGY METHOD 07/08/2025 9:04 PM EDT [facility] Platelet Count 329 155 - 369 10*3/uL LAB HEMATOLOGY METHOD 07/08/2025 9:04 PM EDT [facility] MCV 85 79 - 98 fL LAB HEMATOLOGY METHOD 07/08/2025 9:04 PM EDT [facility] MCH 27.5 26.0 - 32.0 pg LAB HEMATOLOGY METHOD 07/08/2025 9:04 PM EDT [facility] MCHC 32.4 30.7 - 35.5 g/dL LAB HEMATOLOGY METHOD 07/08/2025 9:04 PM EDT [facility] RDW 17.3(H) 11.5 - 14.5 % LAB HEMATOLOGY METHOD 07/08/2025 9:04 PM EDT [facility] MPV 10.1 8.8 - 12.5 fL LAB HEMATOLOGY METHOD 07/08/2025 9:04 PM EDT [facility] nRBC 0.0 <=0.0 per 100 WBCs LAB HEMATOLOGY METHOD 07/08/2025 9:04 PM EDT [facility] Differential Type Automated LAB HEMATOLOGY METHOD 07/08/2025 9:04 PM EDT [facility] Neutrophils % 91 % LAB HEMATOLOGY METHOD 07/08/2025 9:04 PM EDT [facility] Lymphocytes % 4 % LAB HEMATOLOGY METHOD 07/08/2025 9:04 PM EDT [facility] Monocytes % 4 % LAB HEMATOLOGY METHOD 07/08/2025 9:04 PM EDT [facility] Eosinophils % 0 % LAB HEMATOLOGY METHOD 07/08/2025 9:04 PM EDT [facility] Basophils % 0 % LAB HEMATOLOGY METHOD 07/08/2025 9:04 PM EDT [facility] Immature Granulocytes % 1 % LAB HEMATOLOGY METHOD 07/08/2025 9:04 PM EDT [facility] Neutrophils Absolute 23.61(H) 1.60 - 6.10 10*3/uL LAB HEMATOLOGY METHOD 07/08/2025 9:04 PM EDT [facility] Lymphocytes Absolute 1.15(L) 1.20 - 3.90 10*3/uL LAB HEMATOLOGY METHOD 07/08/2025 9:04 PM EDT [facility] Monocytes Absolute 0.98(H) 0.30 - 0.90 10*3/uL LAB HEMATOLOGY METHOD 07/08/2025 9:04 PM EDT [facility] Eosinophils Absolute 0.04 0.00 - 0.50 10*3/uL LAB HEMATOLOGY METHOD 07/08/2025 9:04 PM EDT [facility] Basophils Absolute 0.09 0.00 - 0.10 10*3/uL LAB HEMATOLOGY METHOD 07/08/2025 9:04 PM EDT [facility] Immature Granulocytes Absolute 0.25(H) 0.00 - 0.06 10*3/uL LAB HEMATOLOGY METHOD 07/08/2025 9:04 PM EDT [facility] Blood Venous blood specimen / Unknown Venipuncture / Unknown 07/08/2025 6:14 PM EDT 07/08/2025 6:23 PM EDT [facility] - 07/08/2025 9:04 PM EDT Therapeutic decision making should be based on absolute values, rather than percentages. us My Charles MD LAB BLOOD ORDERABLES Fi nal Result [facility] [address] [place] [address] * (ABNORMAL) CMP (07/08/2025 6:14 PM EDT) Glucose, Plasma 411(H) 74 - 99 mg/dL 07/08/2025 7:18 PM EDT [facility] BUN, Plasma 33(H) 7 - 21 mg/dL 07/08/2025 7:18 PM EDT [facility] Creatinine, Plasma 1.99(H) 0.60 - 1.10 mg/dL 07/08/2025 7:18 PM EDT [facility] BUN/Creatinine Ratio 17 07/08/2025 7:18 PM EDT [facility] Sodium, Plasma 131(L) 136 - 145 mmol/L 07/08/2025 7:18 PM EDT [facility] Potassium, Plasma 4.0 3.6 - 4.9 mmol/L 07/08/2025 7:18 PM EDT [facility] Chloride, Plasma 93(L) 97 - 107 mmol/L 07/08/2025 7:18 PM EDT [facility] CO2, Plasma 22 22 - 29 mmol/L 07/08/2025 7:18 PM EDT [facility] Anion Gap 16 6 - 16 mmol/L 07/08/2025 7:18 PM EDT [facility] Total Calcium, Plasma 9.3 8.9 - 10.2 mg/dL 07/08/2025 7:18 PM EDT [facility] Total Protein 6.0(L) 6.3 - 7.9 g/dL 07/08/2025 7:18 PM EDT [facility] Albumin, Plasma 2.6(L) 3.5 - 5.2 g/dL 07/08/2025 7:18 PM EDT [facility] AST, Plasma 16 10 - 35 U/L 07/08/2025 7:18 PM EDT [facility] ALT, Plasma 15 10 - 35 U/L 07/08/2025 7:18 PM EDT [facility] Alkaline Phosphatase, Plasma 165(H) 35 - 104 U/L 07/08/2025 7:18 PM EDT [facility] Total Bilirubin, Plasma 0.4 0.2 - 1.1 mg/dL 07/08/2025 7:18 PM EDT [facility] eGFRcr 30.3 mL/min/1.7 3m*2 07/08/2025 7:18 PM EDT [facility] Comment:Reported eGFRcr in m L/min/1.73m2 is based the CKD-EPI 2020 equation that does not use a race coefficient. Blood Venous blood specimen / Unknown Venipuncture / Unknown 07/08/2025 6:14 PM EDT 07/08/2025 6:23 PM EDT us My Charles MD LAB BLOOD ORDERABLES Fi nal Result Performing Organization Address City/State/[facility] Co de Phone Number [facility] [address] [place] [phone] * [place] [facility], E/M 30-74 MINUTES [...] this encounter Visit Diagnoses Diagnosis Necrotizing fasciitis ([facility]/HCC)- Primary Necrotizing fasciitis Necrotizing fasciitis ([facility]/HCC) Necrotizing fasciitis 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) Morbid (severe) obesity due to excess calories (CMS/HCC) Septic shock ([facility]/HCC) Acute respiratory failure with hypoxia Type 2 diabetes mellitus with hyperglycemia, without long-term current use of insulin Celiac disease Respiratory insufficiency Other dyspnea and respiratory abnormality DM (diabetes mellitus) Type II or unspecified type diabetes mellitus without mention of complication, not stated as uncontrolled Hidradenitis Smoker Tobacco use disorder Acute respiratory failure Septic shock (CMS/HCC) Absence seizure ([facility]/HCC) 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 epilepsy Chronic obstructive pulmonary disease, unspecified HTN (hypertension), benign Essential hypertension, benign Depression Depressive disorder, not elsewhere classified Morbid (severe) obesity due to excess calories ([facility]/HCC) Urge incontinence Necrotizing fasciitis ([facility]) Necrotizing fasciitis documented in this encounter Admitting Diagnoses Diagnosis Necrotizing fasciitis ([facility]/HCC) Necrotizing fasciitis documented in this encounter [...] Tue07/08/25 at 205, Until Tue07/19/25 at 1456, Routine, low blood [...] (QUARTER-Strength)) external solution As needed, Starting on Tue07/10/25 at 1720, Until Tue07/10/25 at 1721, Routine Given 07/10/2025 5:20 PM EDT 1 Application Othe r documented in this encounter Active and Recently [...] Units, Subcutaneous, 2 times nightly (2099 & 030), First dose on Tue07/11/25 at 2100, Until [...] no wv in place due to 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
--- OUTSIDE RECORDS SUMMARY | 2025-07-10 15:16 | XMS_ITS | Encounter Summary ---
Author Organization Healthcare Address [address] [place] [address] Care Team Providers Care Quantitative Software Engineer Name Role Phone Yenny Dhillon APRN Primary Care Provider [phone] Reason for Visit * Auth/Cert (Routine) Specialty Diagnoses / Procedures Referred By Bharati t Referred To Contact Diagnoses Necrotizing fasciitis (CMS/HCC) Necrotizing Fascitis Brittany Crawford MD [address] [facility] [address] [place] [address] Phone: tel: fax: P[facility] A Inpatient [address] [place] [address] Phone: tel: Referral ID Status Reason Start Date Expiration Date Visits Re quested Visits Authorized [id number] 1 1 Encounter Details Date Type Department Care Team (Late st Contact Info) Description 07/10/2025 3:16 PM EDT Anesthesia Event [facility] OPERATING ROOM [address] [place] [address] Jason Douglas DO [address] [place] [address] Lisa Allen MD [address] [place], [place] [phone] Anesthesia Record Procedure Summary Procedure Name Responsible [...] CRNA - 07/10/2025 5:20 PM EDT Patient: Ashley Brown Anesthesia Type: [...] 0800 Procedure: DEBRIDEMENT, WOUND groin (Right) [facility]: [facility] / [place] Surgeons: Dorcas [...] 07/10/2025 ABG Lab Results Component Value Date [id number] 26 07/09/2025 LACTATE 0.9 07/09/2025 Lab Results Component Value Date PH 7.31 (L) 07/09/2025 PCO2 53 (H) 07/09/2025 PO2 153 (H) 07/09/2025 [id number] 100 (H) 07/09/2025 BASEEXC -0.4 07/09/2025 HCTSYR 30.6 (L) 07/09/2025 KSYR 3.4 (L) 07/09/2025 CLSYR 107 07/09/2025 GLUSYR 141 (H) 07/09/2025 CAION 4.9 07/09/2025 LACTATE 0.9 07/09/2025 EKG Encounter Date: 07/08/25 ECG Adult Result Value EKG DIAGNOSIS CLASS Abnormal Ventricular Rate 79 Atrial Rate 79 [place] Interval 188 QRSD Interval 90 QT Interval 354 QTC Interval 405 P [place] 44 R [place] 17 T Wave [place] 27 Diagnosis Sinus rhythm with frequent premature [...] Plan ASA 4 Plan was reviewed with: ERGONOMIC SPECIALIST Anesthesia technique(s) discussed with the patient/family: general Anesthesia plan agreed upon was: general Anesthetic plan and risks discussed with healthcare power of erisa attorney. Use of blood products discussed with healthcare power of erisa attorney who consented to blood products. ROS [...] Visit Medical Office Building Urology [address] [facility], [address] [place] [address] Marj Matamoros, THEORETICAL PHYSICIST [address] [place] [address] documented as of this encounter Visit Diagnoses [...] Units/hr (0.5-30 mL/hr), Intravenous, Titrated, Starting on 07/08/25 at 2145, Until Tomasa 07/11/25 at 1820, [...] documented as of this encounter Care Teams Quantitative Software Engineer Relationship Specialty Start Date End Date Yenny Dhillon APRN [address] [place] [address] PCP - General 07/22/23 documented as of this encounter
--- OUTSIDE RECORDS SUMMARY | 2025-07-11 13:50 | XMS_ITS | Encounter Summary ---
Author Organization Healthcare Address [address] [place] [address] Care Team Providers Care Social And Political Studies Professor Name Role Phone Yenny Dhillon APRN Primary Care Provider [phone] Reason for Visit * Reason Comments Wound Check * Auth/Cert (Routine) Specialty Diagnoses / Procedures Referred By Bharati wiggins Referred To Contact Diagnoses Necrotizing fasciitis ([facility]/HCC) Necrotizing Fascitis Luanne Crawford MD [address] [address] Phone: tel: fax: P[facility] A Inpatient [address] [place] [address] Phone: tel: Referral ID Status Reason Start Date Expiration Date Visits Re quested Visits Authorized [id number] 1 1 Encounter Details Date Type Department Care Team (Late st Contact Info) Description 07/11/2025 1:50 PM EDT - 07/11/2025 3:20 PM EDT Surgery [facility] A OPERATING ROOM [address] [place] [address] Dorcas Hennessy MD [address] [address] APPLICATION OR REPLACEMENT, WOUND VAC [...] dressing in place, sutures removed on rounds. [facility] can re- apply negative pressurewound [...] please call our General Surgery Clinic at [phone]. If there are questions or concerns after discharge from the hospital, call Radha Ugalde, Nurse Coordinator between 7am-3pm at [phone]. If it is after hours, weekends, and holidays please call [phone] and ask for the resident security operations center operator for Emergency General Surgery. Medication requests should [...] Optimize Oral Intake Flowsheets (Taken 07/18/20252319 by Insesa Almazan, RN) Oral Nutrition Promotion: calorie-dense foods [...] Outcome: Met Intervention: Promote Activity and Functional [place] Flowsheets Taken 07/18/20252319 by Inessa Almazan, NAHID [...] per tolerance activity encouraged Taken 07/18/20251999 by Ienssa Almazan, RN Activity Assistance Provided: assistance, stand-by [...] Pain Flowsheets Taken 07/19/20253 by Inessa Almazan, baster hand Interventions: medication (see MAR) Taken 07/18/2025 [address] [...] Note Cristina Brown 50 y.o. female CSN: [id number] Admission: 07/08/2025 5:58 PM Primary Problem: Necrotizing fasciitis (CMS/HCC) Primary Stockroom Keeper: Primary Caregiver: Self Assistance Available at Discharge: [...] Community Agency(s): Patient's Choice of Community Agency(s): [facility] Patient/Family Anticipated Services at Transition: Patient/Family Anticipated Services at Transition: rehabilitation services DME/Equipment Needed after Discharge: Equipment Currently Used at Home: none Equipment Needed After Discharge: walker, rollator Readmission Within the Last 30 Days: Readmission Within the Last 30 Days: unable to assess Medicare Documentation: N/A Follow-up: Keaton Patel MD [address] [place] [address] [facility] ([facility]) [address] [phone] Go on 07/19/2025 Discharge Transportation: Transportation Anticipated: [...] arranged for this date at 1400 from [facility]. Annie Littlejohn * Gauri Rico - Raj Cardona RN - 07/19/2025 9:44 AM EDT Images from the original note were not included. 1087 Oxycodone Oral Tablet, Immediate Release Brand Names: Oxaydo, Roxicodone What is this medicine? Oxycodone (dv-o-QCR-done) is an opioid pain reliever. It is [...] a special medication guide each time you peanut picker this medicine. ? Overdosage: Taking too [...] should report to your doctor or health career development coordinator as soon as possible: ? allergic reactions [...] attention (report to your doctor or health career development coordinator if they continue or are bothersome): ? constipation ? dry mouth ? itching ? nausea, vomiting ? upset stomach This list may not describe all possible side effects. Call your doctor for medical advice about side effects. You may report side effects to FDA at 9-294-PFI-0877. Where should I keep my medicine? This [...] location. To find a disposal location, visit [facility]/[place]. If you cannot take unused medicine to [...] from the original note were not included. [id number] Naloxone Nasal [place] WHY is this medicine prescribed? Prescription and [...] pharmacist for the instructions or visit the pharmacy operations coordinator's website to get the instructions. You should [...] or doctor for a copy of the pharmacy operations coordinator's information for the patient. Are there OTHER [...] and out of their sight and reach. https://www.upandIntrohive.org Dispose of unneeded medications in a way [...] of all of the prescription and nonprescription (zpan-bdy-npsepga) medicines, vitamins, minerals, and dietary supplements you [...] or pharmacist about specific clinical use. The [place] [employer] represents that the information provided hereunder was formulated with a reasonable standard of care, and in conformity with professional standards in the field. The [place] [employer] makes no representations or warranties, express or implied, including, but not limited to, any implied warranty of merchantability and/or fitness for a particular purpose, with respect to such information and specifically disclaims all such warranties. Users are advised that decisions regarding drug therapy are complex medical decisions requiring the independent, informed decision of an appropriate health career development coordinator, and the information is provided for informational purposes only. The entire monograph for a drug should be reviewed for a thorough understanding of the drug's actions, uses and side effects. The [place] [employer] does not endorse or recommend the use of any drug.The information is not a substitute for medical care. AHFS?? Patient Medication Information?. ?? Copyright, 2023. The [place] [employer]-System Pharmacists??, [address], [address], [place], [place]. All Rights Reserved. Duplication for commercial use must be authorized by [facility]. Selected Revisions: May 26, 2024. AHFS?? Patient Medication Information?. ?? Copyright, 2024 * [facility] - Raj Cardona RN - 07/19/2025 [...] controlled substances: ? Drug Enforcement Agency (HARIS): http://www.deadiversion.HitFixoCinemagram.gov/drug_disposal/takeback/index.htm ? National Association of Drug Diversion Investigators (NADDI): http://rxdrugdropbox.org/ ? [place] Office of Drug Control Policy: http://odcp.fl.gov/Prescription+Drug+Drop+Box+Sites.htm Are there concerns about or ? ? [...] look blue or purple What is a [facility] report? DANYELLE is a system that tracks [...] the dispenser who reported the information to [facility]. If the dispenser agrees that the information should be changed, he or she can fix the DANYELLE report. However, the dispenser may certify that the report is correct. If that is the case, you or your doctor may then call the [place] Drug Enforcement and Professional Practices Branch at .This will start an investigation of the error. * [facility] - Raj Cardona RN - 07/19/2025 9:44 AM EDT Images from the original note were not included. 99288 Insulin: How to Use and Where to [...] ?needles? or ?sharps.? ? Call your local [employer] company to ask about removing the sharps container. You can also check withthe Coalition for Safe Community Needle Disposal at www.safeneedledisposal.org or 124-725-1590. Storing your insulin ? Keep unopened insulin [...] cold. Last Reviewed Date: 2023 00:00:00 ?? 2031-0305 [employer]. All rights reserved. This information is not intended as a substitute for professional medical care. Always follow your healthcare professional's instructions. * Gauri Rico - Raj Cardona RN - 07/19/2025 9:43 AM EDT Images from the original note were not included. [id number] Diet: Diabetes Food is an important tool [...] of Nutrition and Dietetics at www.eatright.org o [place] Diabetes Association at www.diabetes.org or 675-558-6155 o Association of Diabetes Care and Education Specialists at www.diabeteseducator.org/ Last Reviewed Date: 2024 00:00:00 ?? 7047-0539 [employer]. All rights reserved. This information is not intended as a substitute for professional medical care. Always follow your healthcare professional's instructions. * Gauri [facility] - Raj Cardona RN - 07/19/2025 9:43 AM EDT Images from the original note were not included. 08237 Diabetes: Understanding Carbohydrates, Fats, and Protein Food [...] foods. Last Reviewed Date: 2024 00:00:00 ?? 4734-0504 [employer]. All rights reserved. This information is not intended as a substitute for professional medical care. Always follow your healthcare professional's instructions. * Gauri LouieJANETH - Raj Cardona RN - 07/19/2025 9:43 AM EDT Images from the original note were not included. 73957 Discharge Instructions: Packing a Wound You have [...] chills. Last Reviewed Date: 2025 00:00:00 ?? 3914-4178 [employer]. All rights reserved. This information is not intended as a substitute for professional medical care. Always follow your healthcare professional's instructions. * Gauri Rico - Raj Cardona RN - 07/19/2025 9:43 AM EDT Images from the original note were not included. 65379 Negative Pressure Wound Therapy Negative pressure wound [...] device. Last Reviewed Date: 2024 00:00:00 ?? 1997-7689 [employer]. All rights reserved. This information is not intended as a substitute for professional medical care. Always follow your healthcare professional's instructions. * Gauri Rico - Raj Cardona RN - 07/19/2025 9:43 AM EDT Images from the original note were not included. 21958 Discharge Instructions: Changing Your Dressing You are [...] doctor. Last Reviewed Date: 2025 00:00:00 ?? 6843-7455 [employer]. All rights reserved. This information is not intended as a substitute for professional medical care. Always follow your healthcare professional's instructions. * [facility] - Raj Cardona RN - 07/19/2025 9:42 AM EDT Images from the original note were not included. [id number] Abscess (Incision and Drainage) An abscess is [...] treatment. Last Reviewed Date: 2024 00:00:00 ?? 6839-8273 [employer]. All rights reserved. This information is not intended as a substitute for professional medical care. Always follow your healthcare professional's instructions. * Gauri Rico - Raj Cardona RN - 07/19/2025 9:42 AM EDT Images from the original note were not included. 78161 Preventing a Surgical Site Infection A risk [...] of infection. ? Controlled body temperature. A jpnde-ffka-qighic temperature during or after surgery prevents oxygen [...] and water or with an alcohol-based hand drum tender before and after caring for you. Don?t [...] away. Last Reviewed Date: 2024 00:00:00 ?? 1268-2374 [employer]. All rights reserved. This information is not intended as a substitute for professional medical care. Always follow your healthcare professional's instructions. * [facility] - Raj Cardona RN - 07/19/2025 [...] to the condition itself. It comes from Kazakh and Latin words for a gnawing sore [...] questions. Last Reviewed Date: 2023 00:00:00 ?? 4275-3093 [employer]. All rights reserved. This information is not intended as a substitute for professional medical care. Always follow your healthcare professional's instructions. * Discharge Summary - Becky Graff, ESCALATOR CONSTRUCTOR - 07/19/2025 9:31 AM EDT Images from the original note were not included. Hospitalization Admit Date/Time: 07/08/2025 5:58 PM Admitting Attending: Luanne Crawford Discharge Date: 07/19/25 Discharge Attending Physician: Anne Franco MD PCP name and Address: Yenny Dhillon, ESCALATOR CONSTRUCTOR [address] [facility] [address] [place] [address] Referring provider name and address: Keaton Patel MD [address] [place] [address] [place] [facility] Chief Concern, Brief History of Present Illness, and Hospital Course Cristina Brown is a 50 y.o. female with PMH of DM, hidradenitis supparativa, current smoker (1.5ppd), hx of absent seizures, UTI, depression, anxiety, asthma, HLD, celiac disease, presenting to [facility] on 07/08/2025 as transfer with [...] admission H&P. Diagnosis: necrotizing fasciitis Surgery: 07/08 (yT) Excisional debridement of right lower extremity, groin, [...] stay, and so will be discharged to [facility]. Surgeries and Procedures Procedures performed [...] Your Medications These medications were sent to [facility] - [place], [place] - [address] [facility] [address] [facility] [address] naloxone 4 mg/0.1 mL nasal spray Information [...] - Improving, continue to monitor Septic shock ([facility]) Overview Addendum 07/12/2025 [...] dressing in place, sutures removed on rounds. [facility] can re- apply negative pressurewound [...] please call our General Surgery Clinic at [phone]. If there are questions or concerns after discharge from the hospital, call Radha Ugalde, Nurse Coordinator between 7am-3pm at [phone]. If it is after hours, weekends, and holidays please call [phone] and ask for the resident security operations center operator for Emergency General Surgery. Medication requests should [...] Judgment: Judgment normal. Discharge Disposition/Condition Disposition: [facility] Condition: Stable (s/sx potential problems absent or [...] (H) 07/17/2025 I reviewed bg tracing in [facility] glucose timeline 07/19/25 ASSESSMENT Hospital Course: Cristina Brown is a 50 y.o. female with hx of type 2 DM, morbid obesity, hidradenitis supparativa, current smoker (1.5 ppd), hx of absent seizures, UTI, depression, anxiety, asthma, HLD, celiac disease who initially came to [facility] on 07/08/2025 as transfer with [...] to establish care with endocrine provider in [place], [place]. --> Provided patient with address and number of clinic. [[facility] Endocrinology Clinic in the [facility] Physician Building]. -Tentative discharge recommendations: Likely [...] team via secure chat orpage us at [phone] during 7a-7p, Tuesday-Tuesday. For after hours please [...] 7:08 AM EDT Associated Problem(s): Necrotizing fasciitis ([facility]) - 07/09: debridement [...] and newly diagnosed JOSEP who presented to [facility] with leukocytosis and exam findings consistent [...] the brett pad. After discussion with chief security operations center operator, decision was made to remove the [place] and place a uqw-lip-qgerpbkd with Kerlix, Polymem, ABD pads, and skin [...] Note Cristina Brown 50 y.o. female CSN: [id number] Admission: 07/08/2025 5:58 PM Primary Problem: Necrotizing fasciitis (CMS/HCC) Anticipated Discharge Date: 07/19/25 Has Discharge Plans Changed? Yes [facility] Acute Rehab Medicare Second Notice: Housing Circumstances: Low Income ( 101-300% Federal Poverty Guideline) Housing Circumstances Action Taken: Medically Ready for Discharge: Anticipated Tomorrow Additional Comments Per the MD pt is medically ready to d/c after she can tolerate her wv being changed without IV painmedication. SW talked with the pt and she is agreeable to go to [facility] however she still has a lot [...] the MD team. Pt will transfer to [facility] via shuttle on 07/19 if all needs are addressed. Annie Littlejohn * Progress Notes - Sherrill Villa, ESCALATOR CONSTRUCTOR - 07/18/2025 8:46 AM EDT Endocrine - [...] celiac disease who initially came to [facility] on 07/08/2025 as transfer with [...] to establish care with endocrine provider in [place], [place]. --> Provided patient with address and number of clinic. [[facility] Endocrinology Clinic in the [facility] Physician Building]. -Tentative discharge recommendations: Likely [...] Adult Inpatient Diabetes team via secure chat orpaLightning Lab us at [phone] during 7a-7p, Tuesday-Tuesday. For after hours please [...] 7:05 AM EDT Associated Problem(s): Necrotizing fasciitis ([facility]) - 07/09: debridement [...] Morbid (severe) obesity due to excess calories ([facility]) Complicates all aspect of [...] Ongoing, Progressing Intervention: Promote Activity and Functional [place] Flowsheets (Taken 07/18/2025204) Activity Assistance Provided: assistance, [...] Ongoing, Progressing Intervention: Promote Activity and Functional [place] Flowsheets Taken 07/16/2025 0635 by Yessenia Ramirez [...] celiac disease who initially came to [facility] on 07/08/2025 as transfer with [...] to establish care with endocrine provider in [place]. --> Provided patient with address and number of clinic. [[facility] Endocrinology Clinic in the [facility] Physician Building]. -Tentative discharge recommendations: Likely [...] via secure chat or page us at [phone] during 7a-7p, Tuesday-Tuesday. For after hours please [...] care close to her sisters house in [place]. CM notified. * Assessment & Plan Note [...] Morbid (severe) obesity due to excess calories ([facility]) Complicates all aspect of [...] MD - 07/17/2025 10:18 AM EDT 07/17/25 Irinadebbienicholas Escobar Kevin HPI 50-year-old female with past [...] deficiency Overview Signed 08/31/2023 9:36 AM by aJnell Bueno Last Assessment & Plan: Condition: stable [...] admission Level of Mobility Ambulatory- community Mobility [place] Independent gait without device History of Falls [...] motivated and engaged throughout Visitors Present None Fats And Oils Loader (if applicable) OBJECTIVE PAIN Rates pain at [...] needed areas of treatment space Level of [place] Interventions: Feeding Independent Edge of bed Patient [...] of Assistance: Moderate assistance Adaptive Equipment: Senior It Business Analyst, Sock aide Training and demonstration provided for use and functionality of sock aid, leg electroencephalographic technologist strap and garment parts cutter machine tool to support independence with LB dressing, [...] and prioritizing during ADL performance. Access Code: [email or web address] URL: [email or web address] Putting On Socks with a Sock Aid Putting On and Taking Off Pants Using a Senior It Business Analyst Using a Leg Partner Integration Planner Adaptive Equipment for Bathing & Showering Understanding Energy Conservation BED MOBILITY Level of [place] Physical/Non- physical Assist Adaptive Equipment Utilized Supine to Sit Modified [place] Bed rails TRANSFERS Level of [place] Physical/Non- physical Assist Adaptive Equipment Utilized Sit [...] admission Level of Mobility Ambulatory- community Mobility [place] Independent gait without device History of Falls [...] unaware when pt may be discharged from [facility]. Fats And Oils Loader (if applicable) Not Applicable OBJECTIVE & INTERVENTIONS [...] pt's true mobility BED MOBILITY Level of [place] Physical/Non- physical Assist Adaptive Equipment Utilized Rolling/ Turning Scooting/ Bridging Supine to Sit Modified [place] Bed rails Sit to Supine Interventions TRANSFERS Level of [place] Physical/Non- physical Assist Adaptive Equipment Utilized Sit to Stand Stand-by assist Supervision Rollator Stand to sit Stand-by assist Supervision Rollator Bed to Chair Toilet Transfer Shower Transfer Interventions BALANCE Postural Appearance Posture: Forward head, Rounded shoulders Level of [place] Balance Support Interventions Static Sit Standby assist Feet supported Dynamic Sit Contact guard Feet supported Dynamic Sitting-Balance: Lateral weight shifts, Anterior/Posterior weight shifts Static Stand Contact guard Right upper extremity support, Left upper extremity support Standing in room prior to ambulation Dynamic Stand Contact guard Right upper extremity support, Left upper extremity support 3 bouts of approx 1 min each AMBULATION Level of [place] Distance Adaptive Equipment Utilized Ambulation Contact guard [...] Ongoing, Progressing Intervention: Promote Activity and Functional [place] Flowsheets Taken 07/16/2025 0635 by Yessenia Ramirez [...] promoted Taken 07/14/2025 1800 by Josi Ann scale shooter/Support System Care: support provided Goal: Optimal Functional [...] Ongoing, Progressing Intervention: Promote Activity and Functional [place] Flowsheets Taken 07/16/2025 0635 by Yessenia Ramirez [...] lightweight clothing Taken 07/15/2025 1325 by Sophia Slaazar RN Infection Management: aseptic technique maintained Goal: [...] pattern promoted Taken 07/16/2025 012 by Eulalia sEtrada RN Pain Management Interventions: (care plan) pillow [...] supports utilized Taken 07/14/2025 1800 by Josi nAn RN Skin Protection: frequent weight shift encouraged [...] Ongoing, Progressing Intervention: Promote Activity and Functional [place] Flowsheets (Taken 07/16/2025 012 by Eulalia Estrada [...] 3:01 PM EDT SW received call from Endorsement Clerk offering assistance for d/c planning. Her Callback #[phone] * Progress Notes - Sherrill Villa APRN [...] (H) 07/14/2025 I reviewed bg tracing in [facility] glucose timeline 07/16/25 ASSESSMENT Hospital Course: Cristina Brown is a 50 y.o. female with hx of type 2 DM, morbid obesity, hidradenitis supparativa, current smoker (1.5 ppd), hx of absent seizures, UTI, depression, anxiety, asthma, HLD, celiac disease who initially came to [facility] on 07/08/2025 as transfer with [...] to establish care with endocrine provider in [place]. --> Provided patient with address and number of clinic. [[facility] Endocrinology Clinic in the [facility] Physician Building]. -Tentative discharge recommendations: Likely [...] Adult Inpatient Diabetes team via secure chat orpaLightning Lab us at [phone] during 7a-7p, Tuesday-Tuesday. For after hours please [...] Ongoing, Progressing Intervention: Promote Activity and Functional [place] Flowsheets (Taken 07/16/2025128) Self-Care Promotion: independence encouraged BADL personal objects within reach BADL personal routines maintained adaptive equipment use encouraged Problem: Wound Goal: Optimal Coping Outcome: Ongoing, Progressing Intervention: Support Patient and Family Response Flowsheets Taken 07/16/2025128 by Eulalia Estrada RN Supportive Measures: active listening utilized verbalization of feelings encouraged problem-solving facilitated relaxation techniques promoted Taken 07/14/2025 1800 by Josi Ann scale shooter/Support System Care: support provided Goal: Optimal Functional [...] Ongoing, Progressing Intervention: Promote Activity and Functional [place] Flowsheets Taken 07/15/2025 1745 by Denia Boo, [...] provided Taken 07/14/2025 1800 by Josi Ann scale shooter/Support System Care: support provided Goal: Optimal Functional [...] Evaluation Note Cristina Brown 50 y.o. female [facility]: [id number] Room/Bed 123/123A Nutrition evaluation type: follow-up Reason for evaluation: Hospital course: 50 y o F transferred from [facility] with concern for necrotizing fasciitis; OR 07/08 for excisional debridement of RLE, groin, pubis, and abdominal wall of skin, subcutaneous tissue, and muscle fascia, [id number]. Septic shock secondary to NSTI. Intubated & [...] Estimated Needs: Kcal: 25-27 kcal/kg adj bw (5184-8322 kcal/d) Protein: 1.5-1.7 g/kg adj bw (143-162 [...] Note Cristina Brown 50 y.o. female CSN: [id number] Admission: 07/08/2025 5:58 PM Primary Problem: Necrotizing fasciitis (CMS/HCC) Gluing Machine Operator Electronic reviewed chart and spoke with patient to complete this Initial Case Management Assessment. PCP: Yenny Dhillon APRN Emergency Contact: Extended Emergency Contact Information Primary Emergency Contact: Yecenia Lake Mobile Relation: Sister Preferred language: Bruneian Fats And Oils Loader needed? No Secondary Emergency Contact: Jahne,Arnoldo Address: [address] [place] [address] Mobile Relation: Significant Other Preferred language: Bruneian Fats And Oils Loader needed? No Insurance: Primary Visit Coverage Payer Plan Sponsor Code Group Number Group Name [facility] MEDICAID [facility] MEDICAID [facility] Primary Visit Coverage Subscriber Subscriber ID Subscriber Name Subscriber SSN Subscriber Address [id number] CRISTINA BROWN [id number] [address] Patient information: Primary Caregiver: Self Accompanied by/Relationship: Arnoldo Raymond- significant other Support System: Immediate family, Extended family, Friends Daily Living Activities: Functional Status: Minimum assistance Living Arrangements: Family, Friends Type of Residence: Private residence [address] [place] [address] Smoker in the Home?: Yes Current DME: Equipment Currently Used at Home: none Income Information: Income Source: Unemployed Income/Expense Information: Expenses exceed income Current Resources Utilized: Food Loving Housing Circumstances-Z Codes: Housing Circumstances (select all [...] Dialysis Services: N/A Living Will/Advance Directive/Power of Compress Engineer /Guardian: N/A Additional Comments: Pt gets her medications from [facility] in [place] * Consults - Anupama [...] celiac disease who initially came to [facility] on 07/08/2025 as transfer with [...] Anxiety, Asthma, Carpal tunnel syndrome, Depression, Diabetes ([facility]), H/O absence seizures, [...] after discharge close to her home at [place]. She agrees to call and make appointment [...] 750 mg 750 mg Oral TID Cheyanne Chkaraborty MD 750 mg at 07/14/252009 metoprolol tartrate [...] Endocrinology referral - patient requested to see intake worker in [place], [place]. Provided patient with address and number of clinic. [[facility] Endocrinology Clinic in the [facility] Physician Building]. Patient has been on [...] Ongoing, Progressing Intervention: Promote Activity and Functional [place] Flowsheets Taken 07/14/20252310 by Rita Alejandro RN [...] Ongoing, Progressing Intervention: Promote Activity and Functional [place] Flowsheets (Taken 07/14/2025 1800) Activity Assistance Provided: [...] PM EDT Operative Note Date: 07/14/25 Location: [facility] Name: Cristina Brown, : 1975, Diagnoses: Pre-op Diagnosis Necrotizing fasciitis (CMS/HCC) Post-op Diagnosis Necrotizing fasciitis (CMS/HCC) Procedure(s): Wound irrigation Partial wound closure, total closed 30 cm length Attending Surgeon(s): * Anne Franco - Primary Computational Theory Scientist(s): * Janell Cross MD - Resident - [...] (mL) 30 mL 07/14/25 1625 [REMOVED] NG/OG [facility]ett Sump [facility] mouth (Removed) Placement Verification [...] portions of the procedure(s) and immediately available [facility] services the entire duration. See resident [...] Morbid (severe) obesity due to excess calories ([facility]) Complicates all aspect of [...] clutter-free environment maintained assistive device/personal items within [facility] fall prevention program maintained nonskid shoes/slippers [...] clutter-free environment maintained assistive device/personal items within [facility] fall prevention program maintained nonskid shoes/slippers [...] Ongoing, Progressing Intervention: Promote Activity and Functional [place] Flowsheets (Taken 07/13/20251826) Activity Assistance Provided: assistance, [...] Progress Note Cristina Brown 50 y.o. 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 PCP: Yenny Dhillon APRN Emergency Contact: Extended Emergency Contact Information Primary Emergency Contact: Yecenia Lake Mobile Relation: Sister Preferred language: Bruneian Fats And Oils Loader needed? No Secondary Emergency Contact: Arnoldo Raymond Address: [address] [place] [address] Mobile Relation: Significant Other Preferred language: Bruneian Fats And Oils Loader needed? No Insurance: Primary Visit Coverage Payer Plan Sponsor Code Group Number Group Name [facility] MEDICAID [facility] MEDICAID [facility] Primary Visit Coverage Subscriber Subscriber ID Subscriber Name Subscriber N Subscriber Address [id number] CRISTINA BROWN [id number] [place] [address] Patient information: Primary Caregiver: Self Accompanied by/Relationship: Arnoldo Raymond- significant other Support System: Immediate family Daily Living Activities: Functional Status: Independent Living Arrangements: Spouse/Significant other Type of Residence: Private residence [address] [place] [address] Current DME: Equipment Currently Used at Home: none Income Information: Housing Circumstances-Z Codes: Patient Referred to: Anticipated Discharge Date: unknown Patient's Discharge Goal: Referrals sent for Acute Rehab Assistance Available at Discharge: Arnoldo Raymond Discharge Transport: Arnoldo Raymond Follow Up Transport: Arnoldo raymond Home Health / Home Infusion / Outpatient Dialysis Services: none Living Will/Advance Directive/Power of Compress Engineer /Guardian: Additional Comments: CM discussed acute rehab placement with Cristina and Arnoldo Raymond. Their first choice is [facility] in [place], [place]. CM sent referrals in [facility]. Cristina will continue inpatient management for [...] GROUP * Progress Notes - Aparna Shultz Richelle - 07/13/2025 11:59 AM EDT Occupational Therapy Evaluation Patient Name: Cristina Brown Today's Date: 07/13/2025 OT Discharge Recommendations: Acute rehab Equipment Recommended: Defer to facility History Cristina Brown is 50 y.o. female admitted 07/08/2025 for work-up of Necrotizing fasciitis ([facility]). Problem List Active Hospital Problems Diagnosis Date Noted Postoperative pain 07/13/2025 JOSEP (obstructive sleep apnea) 07/11/2025 HLD (hyperlipidemia) 07/10/2025 Acute respiratory failure 07/09/2025 Septic shock ([facility]/HCC) 07/09/2025 Absence seizure ([facility]/HCC) 07/09/2025 DM (diabetes mellitus) ([facility]) 07/08/2025 Hidradenitis 07/08/2025 HTN (hypertension), benign 08/31/2023 Urge incontinence 08/31/2023 Smoker 06/09/2023 Depression 06/09/2023 Morbid (severe) obesity due to excess calories ([facility]) 02/15/2022 Chronic obstructive pulmonary disease, unspecified ([facility]) 01/09/2022 Necrotizing fasciitis ([facility]/HCC) 07/08/2025 Procedures 07/11/2025 Procedure(s): APPLICATION OR [...] evaluation. Participants in Care Family/Caregiver Present: No Fats And Oils Loader: Not Applicable Presentation Oxygen Therapy: Supplemental oxygen [...] admission Level of Mobility: Ambulatory- community Mobility [place]: Independent gait without device History of Falls: [...] Mobility Bed Mobility Exam: Scooting/Bridging Level of [place]: Contact guard (seated scoot once sitting up on EOB and able to wiggle back into recliner chair) Bed Mobility Exam: Supine to Sit Level of [place]: Moderate assist (50% patient's effort) Physical/Nonphysical Assist: Verbal Cues, Moderate cues, Additional assist utilized for safety, HOBelevated Assistive Device: Other (BELL SPINNER x2) Transfers Transfer Interventions: Patient performed sit < > stand x 3 reps total: Mod A from EOB, Min Afrom recliner chair, and CGA from BSC. Transfer Exam: Sit to stand Level of [place]: Minimum assist (75% patient's effort) Physical/Nonphysical Assist: Verbal Cues, Minimal cues Assistive Device: Walker, rolling (andrea) Transfer Exam: Stand to Sit Level of [place]: Minimum assist (75% patient's effort) Physical/Nonphysical Assist: Verbal Cues, Minimal cues Assistive Device: Walker, rolling (andrea) Transfer Exam: Bed to Chair/Chair to Bed Level of [place]: Minimum assist (75% patient's effort) Physical/Nonphysical Assist: Verbal Cues, Minimal cues, Additional assist utilized for safety Type of Transfer: Sidesteps (bed > chair < > BSC) Assistive Device: Walker, rolling (andrea) Toilet Transfer Level of [place]: Minimum assist (75% patient's effort) Physical/Nonphysical Assist: Nonverbal cues (demo/gestures), Verbal Cues, Set-up required, Minimal cues Type of Transfer: Sidesteps, To bedside commode (ordered bariatric BSC from [facility] as patient had difficulty getting on/off BSC [...] to allow bedside care to take placed (INSURANCE CUSTOMER SERVICE SPECIALIST entering to take vitals; RN enforcing [...] for further toileting ADL needs. Standardized Assessments [facility] 6-Click Daily Activities Help from Other: Don/Doff Regular Lower Body Clothings: A lot Help From Other: Bathing: A lot Help From Other: Toileting: A lot Help From Other: Don/Doff Upper Body Clothings: Little Help From Other: Grooming: None Help From Other: Eating Meals: None [facility] 6 Click - Daily Activities [...] admitted 07/08/2025 for work-up of Necrotizing fasciitis ([facility]). Problem List Active Hospital Problems Diagnosis Date Noted Postoperative pain 07/13/2025 JOSEP (obstructive sleep apnea) 07/11/2025 HLD (hyperlipidemia) 07/10/2025 Acute respiratory failure 07/09/2025 Septic shock ([facility]/HCC) 07/09/2025 Absence seizure ([facility]/HCC) 07/09/2025 DM (diabetes mellitus) (CMS/HCC) 07/08/2025 [...] move. Participants in Care Family/Caregiver Present: No Fats And Oils Loader: Not Applicable Presentation Oxygen Therapy: Supplemental oxygen [...] admission Level of Mobility: Ambulatory- community Mobility [place]: Independent gait without device History of Falls: [...] Mobility Bed Mobility Exam: Scooting/Bridging Level of [place]: Contact guard (seated scoot once sitting up on EOB and able to wiggle back into recliner chair) Bed Mobility Exam: Supine to Sit Level of [place]: Moderate assist (50% patient's effort) Physical/Nonphysical Assist: Verbal Cues, Moderate cues, Additional assist utilized for safety, HOBelevated Assistive Device: Other (BELL SPINNER x 2) Transfers Transfer Interventions: Patient performed sit < > stand x 3 reps total: Mod A from EOB, Min Afrom recliner chair, and CGA from BSC. Cues for safe hand placement during transitions using RW. Transfer Exam: Sit to stand Level of [place]: Minimum assist (75% patient's effort) Physical/Nonphysical Assist: Verbal Cues, Minimal cues Assistive Device: Walker, rolling (andrea) Transfer Exam: Stand to Sit Level of [place]: Minimum assist (75% patient's effort) Physical/Nonphysical Assist: Verbal Cues, Minimal cues Assistive Device: Walker, rolling (andrea) Transfer Exam: Bed to Chair/Chair to Bed Level of [place]: Minimum assist (75% patient's effort) Physical/Nonphysical Assist: Verbal Cues, Minimal cues, Additional assist utilized for safety Type of Transfer: Sidesteps (bed > chair < > BSC) Assistive Device: Walker, rolling (andrea) Toilet Transfer Level of [place]: Minimum assist (75% patient's effort) Physical/Nonphysical Assist: [...] assistance Standardized Assessments Standardized Assessments Standardized Assessments: [facility] 6-Clicks Mobility Assessment [facility] 6-Clicks Mobility Assessment Difficulty patient has [...] climbing 3-5 steps with a railing?: Unable [facility] 6-Clicks Mobility Assessment Total : 15 [...] asthma, HLD, celiac disease, presenting to [facility] on 07/08/2025 as transfer with [...] stay, and so will be discharged to [facility]. * Assessment & Plan Note [...] Airway None O2 Delivery Method: Nasal cannula RI SUP: 10 cm H20 Insp Time (sec): 1 sec FiO2 (%): 40 % S RR: 20 RI SUP: 10 cm H20 Output by Drain [...] - Improving, continue to monitor Septic shock ([facility]) Yes Overview Addendum 07/12/2025 [...] Morbid (severe) obesity due to excess calories ([facility]) (Chronic) Yes Overview [...] saw and evaluated the patient with the medical/MAPLE SUGAR MAKER/PA student. I discussed the case with the medical/MAPLE SUGAR MAKER/PA student and agree with the findings and [...] PM EDT Operative Note Date: 07/11/25 Location: [facility] Name: Cristina Brown, : 1975, Diagnoses: Pre-op Diagnosis Necrotizing fasciitis (CMS/HCC) Post-op Diagnosis Necrotizing fasciitis (CMS/HCC) Procedure(s): Right groin/perineum/thigh/abdominal wound exploration and washout Attending Surgeon(s): * Dorcas Hennessy - Primary Computational Theory Scientist(s): * Janell Cross MD - Resident - [...] Note Cristina Brown 50 y.o. female CSN: [id number] Room/Bed 133/133A Nutrition evaluation type: follow-up Reason for evaluation: Hospital course: 50 y o F transferred from [facility] with concern for necrotizing fasciitis; OR 07/08 for excisional debridement of RLE, groin, pubis, and abdominal wall of skin, subcutaneous tissue, and muscle fascia, 10m30bm. Septic shock secondary to NSTI. Intubated & [...] Estimated Needs: Kcal: 25-27 kcal/kg adj bw (7864-2791 kcal/d) Protein: 1.5-1.7 g/kg adj bw (143-162 [...] monitor NPO duration -po per MD/ WOOD CUT ENGRAVER -when po diet appropriate, rec CC3, Gluten [...] Vent Status (ETT, Trach Only): In use RI SUP: 5 cm H20 Insp Time (sec): 1.5 sec Vent Mode: PS FiO2 (%): 60 % S RR: 14 RI SUP: 5 cm H20 MAP (cm H2O): [...] Edited by: Cheyanne Chakraborty MD at 07/11/2025 0831 Gabriel Segov[facility] Critical Care Performed by: Dorcas [...] PM EDT Operative Note Date: 07/10/25 Location: [facility] Name: Cristina Brown, : 1975, Diagnoses: Pre-op Diagnosis Necrotizing fasciitis (CMS/HCC) Post-op Diagnosis Necrotizing fasciitis (CMS/HCC) Procedure(s): Right groin/perineum/thigh/abdominal wound exploration, debridement, and washout Attending Surgeon(s): * Dorcas Hennessy - Primary Computational Theory Scientist(s): * Shelby Whittington MD - Resident - [...] 07/08/252341 Estimated Blood Loss: Minimal Drains: NG/OG Garnett Sump 14 Fr Left nostril (Active) Placement [...] Findings: All viable tissue. Wound measuring approximately [id number]. Packed with 5 kerlix tied together. Indications: Cristina Brown is an 50 y.o. female who is having surgery for Necrotizing fasciitis ([facility]). Patient presented in septic [...] Edited by: Lidia Ellis MD at 07/10/2025 1659 Relevant review of systems was obtained as [...] Vent Status (ETT, Trach Only): In use RI SUP: 5 cm H20 Insp Time (sec): 1.5 sec Vent Mode: PS FiO2 (%): 50 % S RR: 14 RI SUP: 5 cm H20 MAP (cm H2O): [...] Morbid (severe) obesity due to excess calories ([facility]) Yes Overview Addendum 07/09/2025 4:07 PM by Lidia Ellis MD Complicates care. Smoker Yes Overview Signed 07/09/2025 3:05 PM by Lidia Ellis MD - Patient smokes 0.5-1ppd. - Smoking cessation when appropriate. Urge incontinence Yes DM (diabetes mellitus) ([facility]) Yes Overview Addendum 07/09/2025 4:11 PM by Lidia Ellis MD - Patient hyperglycemic, up to 300s. - Insulin drip per protocol. Hidradenitis Yes Absence seizure ([facility]) (Chronic) Yes Overview Addendum 07/10/2025 4:52 PM by Lidia Ellis MD On Lamictal 50mg BID. Acute respiratory failure Yes Overview Signed 07/09/2025 3:57 PM by Lidia Ellis MD - Patient presenting in septic shock due to RLE necrotizing fasciitis. - Requiring ventilator for respiratory support. Wean as tolerated. Septic shock ([facility]) Yes Overview Addendum [...] for outside parameter Switch to plov from [facility] Started Vaso and gave 1L this AM [...] Protection: absorbent pad utilized/changed positioning supports utilized [id number]-ht-[id number] areas padded [id number] areas padded Problem: Skin Injury Risk Increased [...] Note Cristina Anayaehart 50 y.o. female CSN: [id number] Room/Bed 133/133A Nutrition evaluation type: assessment Reason for evaluation: provider consult Hospital course: 50 y o F transferred from [facility] with concern for necrotizing fasciitis; OR 07/08 for excisional debridement of RLE, groin, pubis, and abdominal wall of skin, subcutaneous tissue, and muscle fascia, 57y36rb. Septic shock secondary to NSTI. Intubated & [...] oz) Estimated Needs: Kcal: 22-25 kcal/kg IBW (5540-2449 kcal/d) Protein: 2-2.5 g/kg IBW (136-171 g/d) [...] ICU Daily Progress Note 07/09/25 Cristina Pérezart [facility] 50-year-old female with past medical history [...] decreased. Palpations: Abdomen is soft. Skin: Comments: [id number] open wound with no extension of cellulitis. [...] PEEP (cmH2O): 18 S VT: 450 mL RI SUP: 10 cm H20 Insp Time (sec): 0.8 sec Vent Mode: PS FiO2 (%): 50 % S RR: 22 S VT: 450 mL RI SUP: 10 cm H20 MAP (cm H2O): [...] drip per protocol. Hidradenitis Yes Absence seizure ([facility]) (Chronic) Yes Overview [...] PM EDT Operative Note Date: 07/08/25 Location: [facility] Name: Cristina Escobar Kevin, : 1975, Diagnoses: Pre-op Diagnosis Necrotizing fasciitis (CMS/HCC) Post-op Diagnosis Necrotizing fasciitis (CMS/HCC) Procedure(s): Excisional debridement of right thigh, groin pubis and abdominal wall including skin, subcutaneous tissue and fascia measuring 65 x 20 x 2cm Attending Surgeon(s): * Luanne Crawford - Primary Computational Theory Scientist(s): * Kristy Fields MD - Resident - [...] Attending Surgeon(s): * Luanne Crawford - Primary Computational Theory Scientist(s): * Kristy Fields MD - Resident - [...] anxiety, asthma, HLD, celiac disease, presenting to [facility] on 07/08/2025 as transfer with [...] mL IVPB (vial adapter required) 2 g [id number] Deepthi Garcia MD linezolid (Zyvox) injection 600 [...] asthma, HLD, celiac disease, presenting to [facility] on 07/08/2025 as transfer with [...] 4% (Hibiclens). Acknowledged AMINA RAMIREZ 07/08/251916 Void security operations center operator to OR Once Acknowledged AMINA RAMIREZ 07/08/251916 [...] None Disposition Admit Admitting/Attending Physician: LUANNE CRAWFORD [[id number]] Provider Care Team: E EMERGENCY GENERAL SURGERY [...] Visit Medical Office Building Urology [address], [address] [place] [address] Deepthi Matamoros, ESCALATOR CONSTRUCTOR [address] [place] [address] Scheduled Referrals Name Type Priority Associated Diagnoses Order Schedule Discharge Ambulatory referral to NON Endocrinology Outpatient Referral Routine Morbid (severe) obesity due to excess calories ([facility]) Type 2 diabetes mellitus with hyperglycemia, without long-term current use of insulin ([facility]) Celiac disease Expected: [...] UNSOLICITED RESULTS Routine 07/11/2025 9:57 AM EDT RI CRITICAL CARE, E/M 30-74 MINUTES Routine 07/11/2025 [...] ECG ADULT STAT 07/10/2025 8:42 AM EDT RI CRITICAL CARE, E/M 30-74 MINUTES Routine 07/10/2025 8:15 AM EDT Necrotizing fasciitis ([facility]) Morbid (severe) obesity due to excess calories [...] CO2 MONITORING Routine 07/09/2025 8:00 AM EDT RI CRITICAL CARE, E/M 30-74 MINUTES Routine 07/09/2025 [...] PANEL, PLASMA STAT 07/08/2025 6:14 PM EDT RI CRITICAL CARE, E/M 30-74 MINUTES Routine 07/08/2025 [...] for testing. Comment 07/19/2025 5:32 PM EDT [facility] Supervisor Decorating ID Laura Baez 025 5:32 PM EDT [facility] Device ID [id number] 07/19/2025 5:32 PM EDT [facility] Specimen Type POC Capillary 07/19/2025 5:32 PM EDT [facility] Blood Capillary blood specimen / Unknown 07/19/2025 12:27 PM EDT 07/19/2025 5:32 PM EDT us Anne Franco MD LAB POINT OF CARE TEST DOCKED DEVICE UNSOLICITED RESULTS Final Result [facility] [address] [place] [id number] * Phosphorus (07/19/2025 4:28 AM EDT) Phosphorus, Plasma 3.6 2.5 - 4.5 mg/dL 07/19/2025 5:03 AM EDT [facility] Blood Venous blood specimen / Unknown Venipuncture / Unknown 07/19/2025 4:28 AM EDT 07/19/2025 4:35 AM EDT us Anne Franco MD LAB BLOOD ORDERABLES Sarah l Result Performing Organization Address City/[facility]/ZIP Co de Phone Number [facility] [address] [place] [address] * (ABNORMAL) Magnesium (07/19/2025 4:28 AM EDT) Pathologist [facility] Magnesium, Plasma 1.8(L) 1.9 - 2.4 mg/dL 07/19/2025 5:03 AM EDT [facility] Blood Venous blood specimen / Unknown Venipuncture / Unknown 07/19/2025 4:28 AM EDT 07/19/2025 4:35 AM EDT us Anne Franco MD LAB BLOOD ORDERABLES Sarah l Result Performing Organization Address [facility] Co de Phone Number [facility] [address] [place] [address] * (ABNORMAL) CBC W/O Differential (07/19/2025 4:28 AM EDT) [facility] WBC Count 18.39(H) 3.70 - 10.30 10*3/uL LAB HEMATOLOGY METHOD 07/19/2025 4:51 AM EDT [facility] RBC Count 3.50(L) 3.90 - 5.20 10*6/uL LAB HEMATOLOGY METHOD 07/19/2025 4:51 AM EDT [facility] HGB 9.6(L) 11.2 - 15.7 g/dL LAB HEMATOLOGY METHOD 07/19/2025 4:51 AM EDT [facility] HCT 30.7(L) 34.0 - 45.0 % LAB HEMATOLOGY METHOD 07/19/2025 4:51 AM EDT [facility] Platelet Count 627(H) 155 - 369 10*3/uL LAB HEMATOLOGY METHOD 07/19/2025 4:51 AM EDT [facility] MCV 88 79 - 98 fL LAB HEMATOLOGY METHOD 07/19/2025 4:51 AM EDT [facility] MCH 27.4 26.0 - 32.0 pg LAB HEMATOLOGY METHOD 07/19/2025 4:51 AM EDT [facility] MCHC 31.3 30.7 - 35.5 g/dL LAB HEMATOLOGY METHOD 07/19/2025 4:51 AM EDT [facility] RDW 18.2(H) 11.5 - 14.5 % LAB HEMATOLOGY METHOD 07/19/2025 4:51 AM EDT [facility] MPV 10.2 8.8 - 12.5 fL LAB HEMATOLOGY METHOD 07/19/2025 4:51 AM EDT [facility] nRBC 0.1(H) <=0.0 per 100 WBCs LAB HEMATOLOGY METHOD 07/19/2025 4:51 AM EDT [facility] Blood Venous blood specimen / Unknown Venipuncture / Unknown 07/19/2025 4:28 AM EDT 07/19/2025 4:36 AM EDT us Anne Franco MD LAB BLOOD ORDERABLES Sarah bennett Result [facility] [address] [place] [address] * (ABNORMAL) Basic metabolic panel (07/19/2025 4:28 AM EDT) Glucose, Plasma 153(H) 74 - 99 mg/dL 07/19/2025 5:03 AM EDT [facility] BUN, Plasma 14 7 - 21 mg/dL 07/19/2025 5:03 AM EDT [facility] Creatinine, Plasma 0.73 0.60 - 1.10 mg/dL 07/19/2025 5:03 AM EDT [facility] [facility] BUN/Creatinine Ratio 19 07/19/2025 5:03 AM EDT [facility] Sodium, Plasma 137 136 - 145 mmol/L 07/19/2025 5:03 AM EDT [facility] Potassium, Plasma 4.3 3.6 - 4.9 mmol/L 07/19/2025 5:03 AM EDT [facility] Chloride, Plasma 97 97 - 107 mmol/L 07/19/2025 5:03 AM EDT [facility] CO2, Plasma 28 22 - 29 mmol/L 07/19/2025 5:03 AM EDT [facility] Anion Gap 12 6 - 16 mmol/L 07/19/2025 5:03 AM EDT [facility] Total Calcium, Plasma 9.0 8.9 - 10.2 mg/dL 07/19/2025 5:03 AM EDT [facility] eGFRcr 101.0 mL/min/1.7 3m*2 07/19/2025 5:03 AM EDT [facility] Comment:Reported eGFRcr in m L/min/1.73m2 is based the CKD-EPI 2020 equation that does not use a race coefficient. Blood Venous blood specimen / Unknown Venipuncture / Unknown 07/19/2025 4:28 AM EDT 07/19/2025 4:35 AM EDT Anne Franco MD LAB BLOOD ORDERABLES Sarah bennett Result [facility] [address] [place] [address] * (ABNORMAL) POCT glucose meter (07/18/2025 8:33 [...] 07/18/2025 8:36 PM EDT [facility] Supervisor Decorating ID Zach Martinez 8:36 PM EDT [facility] Device ID [id number] 07/18/2025 8:36 PM EDT [facility] Specimen Type POC Capillary 07/18/2025 8:36 PM EDT [facility] Blood Capillary blood specimen / Unknown 07/18/2025 8:33 PM EDT 07/18/2025 8:36 PM EDT us Anne Franco MD LAB POINT OF CARE TEST DOCKED DEVICE UNSOLICITED RESULTS Final Result Performing Organization Address [facility] de Phone Number [facility] [address] [place] [address] * (ABNORMAL) POCT glucose meter (07/18/2025 6:07 [...] for testing. Comment 07/18/2025 6:08 PM EDT [facility] Supervisor Decorating ID Monique Jacques 6:08 PM EDT [facility] Device ID [id number] 07/18/2025 6:08 PM EDT [facility] Specimen Type POC Capillary 07/18/2025 6:08 PM EDT [facility] Blood Capillary blood specimen / Unknown 07/18/2025 6:07 PM EDT 07/18/2025 6:08 PM EDT us Anne Franco MD LAB POINT OF CARE TEST DOCKED DEVICE UNSOLICITED RESULTS Final Result Performing Organization Address [facility] Co de Phone Number [facility] [address] [place] [address] * (ABNORMAL) POCT glucose meter (07/18/2025 12:36 [...] Comment 07/18/2025 12:38 PM EDT [facility] Supervisor Decorating ID Laura Baez 025 12:38 PM EDT HEALTH[facility]ARE LAB Device ID [id number] 07/18/2025 12:38 PM EDT [facility] Specimen Type POC Capillary 07/18/2025 12:38 PM EDT [facility] Blood Capillary blood specimen / Unknown 07/18/2025 12:36 PM EDT 07/18/2025 12:38 PM EDT us Anne Franco MD LAB POINT OF CARE TEST DOCKED DEVICE UNSOLICITED RESULTS Final Result Performing Organization Address City/[facility] Co de Phone Number [facility]ALTHCARE LAB [address] [place] [address] * (ABNORMAL) POCT glucose meter (07/18/2025 8:39 [...] Comment 07/18/2025 8:41 AM EDT [facility] Supervisor Decorating ID Laura Baez 025 8:41 AM EDT [facility]ALTH[facility]ARE LAB Device ID [id number] 07/18/2025 8:41 AM EDT [facility] LAB Specimen Type POC Capillary 07/18/2025 8:41 AM EDT [facility] Blood Capillary blood specimen / Unknown 07/18/2025 8:39 AM EDT 07/18/2025 8:41 AM EDT us Anne Franco MD LAB POINT OF CARE TEST DOCKED DEVICE UNSOLICITED RESULTS Final Result [facility] [address] [place] [address] * (ABNORMAL) Basic metabolic panel (07/18/2025 6:03 AM EDT) Glucose, Plasma 163(H) 74 - 99 mg/dL 07/18/2025 6:45 AM EDT [facility] BUN, Plasma 11 7 - 21 mg/dL 07/18/2025 6:45 AM EDT [facility] Creatinine, Plasma 0.65 0.60 - 1.10 mg/dL 07/18/2025 6:45 AM EDT [facility] BUN/Creatinine Ratio 17 07/18/2025 6:45 AM EDT [facility] Sodium, Plasma 138 136 - 145 mmol/L 07/18/2025 6:45 AM EDT [facility] Potassium, Plasma 3.8 3.6 - 4.9 mmol/L 07/18/2025 6:45 AM EDT [facility] Chloride, Plasma 99 97 - 107 mmol/L 07/18/2025 6:45 AM EDT [facility] CO2, Plasma 29 22 - 29 mmol/L 07/18/2025 6:45 AM EDT [facility] Anion Gap 10 6 - 16 mmol/L 07/18/2025 6:45 AM EDT [facility] Total Calcium, Plasma 8.5(L) 8.9 - 10.2 mg/dL 07/18/2025 6:45 AM EDT [facility] eGFRcr 108.1 mL/min/1.7 3m*2 07/18/2025 6:45 AM EDT [facility] Comment:Reported eGFRcr in m L/min/1.73m2 is based the CKD-EPI 2020 equation that does not use a race coefficient. Blood Venous blood specimen / Unknown Venipuncture / Unknown 07/18/2025 6:03 AM EDT 07/18/2025 6:12 AM EDT us Anne Franco MD LAB BLOOD ORDERABLES Sarah l Result [facility] [address] [place] [address] * (ABNORMAL) CBC W/O Differential (07/18/2025 6:03 AM EDT) [facility] Signature WBC Count 16.76(H) 3.70 - 10.30 10*3/uL LAB HEMATOLOGY METHOD 07/18/2025 6:25 AM EDT [facility] RBC Count 3.25(L) 3.90 - 5.20 10*6/uL LAB HEMATOLOGY METHOD 07/18/2025 6:25 AM EDT [facility] HGB 9.1(L) 11.2 - 15.7 g/dL LAB HEMATOLOGY METHOD 07/18/2025 6:25 AM EDT [facility] HCT 28.8(L) 34.0 - 45.0 % LAB HEMATOLOGY METHOD 07/18/2025 6:25 AM EDT [facility] Platelet Count 523(H) 155 - 369 10*3/uL LAB HEMATOLOGY METHOD 07/18/2025 6:25 AM EDT [facility] MCV 89 79 - 98 fL LAB HEMATOLOGY METHOD 07/18/2025 6:25 AM EDT [facility] MCH 28.0 26.0 - 32.0 pg LAB HEMATOLOGY METHOD 07/18/2025 6:25 AM EDT [facility] MCHC 31.6 30.7 - 35.5 g/dL LAB HEMATOLOGY METHOD 07/18/2025 6:25 AM EDT [facility] RDW 17.6(H) 11.5 - 14.5 % LAB HEMATOLOGY METHOD 07/18/2025 6:25 AM EDT [facility] MPV 10.3 8.8 - 12.5 fL LAB HEMATOLOGY METHOD 07/18/2025 6:25 AM EDT [facility] nRBC 0.0 <=0.0 per 100 WBCs LAB HEMATOLOGY METHOD 07/18/2025 6:25 AM EDT [facility] Blood Venous blood specimen / Unknown Venipuncture / Unknown 07/18/2025 6:03 AM EDT 07/18/2025 6:12 AM EDT us Anne Franco MD LAB BLOOD ORDERABLES Sarah bennett Result [facility] [address] [place] [address] * (ABNORMAL) POCT glucose meter (07/17/2025 10:33 [...] 07/17/2025 10:35 PM EDT [facility] Supervisor Decorating ID Tha, 07/17/2025 10:35 PM EDT [facility]ALTH[facility]ARE LAB Device ID [id number] 07/17/2025 10:35 PM EDT [facility] Specimen Type POC Capillary 07/17/2025 10:35 PM EDT [facility] Blood Capillary blood specimen / Unknown 07/17/2025 10:33 PM EDT 07/17/2025 10:35 PM EDT Anne Franco MD LAB POINT OF CARE TEST DOCKED DEVICE UNSOLICITED RESULTS Final Result [facility] [address] [place] [address] * PERIPHERAL IV (SMARTFORM LINK) (07/17/2025 5:14 [...] POCT glucose meter (07/17/2025 5:10 PM EDT) [facility] POCT Glucose 115(H) 74 - 99 [...] Comment 07/17/2025 5:12 PM EDT [facility] LAB Supervisor Decorating ID Monique Jacques 5:12 PM EDT [facility] LAB Device ID [id number] 07/17/2025 5:12 PM EDT [facility] Specimen Type POC Capillary 07/17/2025 5:12 PM EDT [facility] Blood Capillary blood specimen / Unknown 07/17/2025 5:10 PM EDT 07/17/2025 5:12 PM EDT us Anne Franco MD LAB POINT OF CARE TEST DOCKED DEVICE UNSOLICITED RESULTS Final Result Performing Organization Address City/State/[facility] Co de Phone Number HEALTHCARE LAB [address] [place] [address] * (ABNORMAL) POCT glucose meter (07/17/2025 12:06 PM EDT) [facility] POCT Glucose 211(H) 74 - 99 [...] Comment 07/17/2025 12:07 PM EDT [facility] Supervisor Decorating ID Josi Ann 12:07 PM EDT [facility]ALTH[facility]ARE LAB Device ID [id number] 07/17/2025 12:07 PM EDT [facility] Specimen Type POC Capillary 07/17/2025 12:07 PM EDT [facility] Blood Capillary blood specimen / Unknown 07/17/2025 12:06 PM EDT 07/17/2025 12:07 PM EDT Anne Franco MD LAB POINT OF CARE TEST DOCKED DEVICE UNSOLICITED RESULTS Final Result [facility] [address] [place] [address] * US Extremity Limited MSK or Soft [...] MD on 07/17/2025 12:38 PM Inderjit AMOS G US PROCEDURES Final Result * Methicillin Resistant Staphylococcus aureus (MRSA) by PCR (07/17/2025 10:14 AM EDT) Methicillin Resistant Staphylococcus aureus (MRSA) by PCR Not Detected Not Detected 07/17/2025 12:11 PM EDT [facility] Swab Both anterior nares / Unknown Non-blood Collection / Unknown 07/17/2025 10:14 AM EDT 07/17/2025 10:33 AM EDT Narrative [facility] - 07/17/2025 12:11 PM EDT [...] MICROBIOLOGY - GENERAL ORDER LUANNE Final Result [facility] [address] [place] [address] * (ABNORMAL) POCT glucose meter (07/17/2025 9:35 [...] 07/17/2025 9:37 AM EDT [facility] Supervisor Decorating ID Josi Ann 9:37 AM EDT [facility]ALTH[facility] LAB Device ID [id number] 07/17/2025 9:37 AM EDT [facility] LAB Specimen Type POC Capillary 07/17/2025 9:37 AM EDT [facility] Blood Capillary blood specimen / Unknown 07/17/2025 9:35 AM EDT 07/17/2025 9:37 AM EDT us Anne Franco MD LAB POINT OF CARE TEST DOCKED DEVICE UNSOLICITED RESULTS Final Result [facility] [address] [place] [id number] * (ABNORMAL) Basic metabolic panel (07/17/2025 5:20 AM EDT) Glucose, Plasma 140(H) 74 - 99 mg/dL 07/17/2025 5:56 AM EDT [facility] BUN, Plasma 8 7 - 21 mg/dL 07/17/2025 5:56 AM EDT [facility] Creatinine, Plasma 0.59(L) 0.60 - 1.10 mg/dL 07/17/2025 5:56 AM EDT [facility] BUN/Creatinine Ratio 14 07/17/2025 5:56 AM EDT [facility] Sodium, Plasma 139 136 - 145 mmol/L 07/17/2025 5:56 AM EDT [facility] Potassium, Plasma 3.8 3.6 - 4.9 mmol/L 07/17/2025 5:56 AM EDT [facility] Chloride, Plasma 97 97 - 107 mmol/L 07/17/2025 5:56 AM EDT [facility] CO2, Plasma 31(H) 22 - 29 mmol/L 07/17/2025 5:56 AM EDT [facility] Anion Gap 11 6 - 16 mmol/L 07/17/2025 5:56 AM EDT [facility] Total Calcium, Plasma 8.6(L) 8.9 - 10.2 mg/dL 07/17/2025 5:56 AM EDT [facility] eGFRcr 110.6 mL/min/1.7 3m*2 07/17/2025 5:56 AM EDT [facility] Comment:Reported eGFRcr in m L/min/1.73m2 is based the CKD-EPI 2020 equation that does not use a race coefficient. Blood Venous blood specimen / Unknown Venipuncture / Unknown 07/17/2025 5:20 AM EDT 07/17/2025 5:27 AM EDT us Anne Franco MD LAB BLOOD ORDERABLES Sarah l Result Performing Organization Address City/[facility]/ZIP Co de Phone Number [facility] [address] [place] [address] * Phosphorus, Plasma (07/17/2025 5:20 AM EDT) Phosphorus, Plasma 3.0 2.5 - 4.5 mg/dL 07/17/2025 5:56 AM EDT [facility] Blood Venous blood specimen / Unknown Venipuncture / Unknown 07/17/2025 5:20 AM EDT 07/17/2025 5:27 AM EDT us Anne Franco MD LAB BLOOD ORDERABLES Sarah l Result Performing Organization Address City/[facility]/ZIP Co de Phone Number [facility] [address] [place] [address] * (ABNORMAL) Magnesium, Plasma (07/17/2025 5:20 AM EDT) Magnesium, Plasma 1.8(L) 1.9 - 2.4 mg/dL 07/17/2025 5:56 AM EDT [facility] Blood Venous blood specimen / Unknown Venipuncture / Unknown 07/17/2025 5:20 AM EDT 07/17/2025 5:27 AM EDT us Anne Franco MD LAB BLOOD ORDERABLES Sarah l Result Performing Organization Address City/[facility]/ZIP Co de Phone Number [facility] [address] [place] [address] * (ABNORMAL) CBC W/O Differential (07/17/2025 5:20 AM EDT) WBC Count 22.29(H) 3.70 - 10.30 10*3/uL LAB HEMATOLOGY METHOD 07/17/2025 5:37 AM EDT [facility] RBC Count 3.36(L) 3.90 - 5.20 10*6/uL LAB HEMATOLOGY METHOD 07/17/2025 5:37 AM EDT [facility] HGB 9.2(L) 11.2 - 15.7 g/dL LAB HEMATOLOGY METHOD 07/17/2025 5:37 AM EDT [facility] HCT 29.4(L) 34.0 - 45.0 % LAB HEMATOLOGY METHOD 07/17/2025 5:37 AM EDT [facility] Platelet Count 484(H) 155 - 369 10*3/uL LAB HEMATOLOGY METHOD 07/17/2025 5:37 AM EDT [facility] MCV 88 79 - 98 fL LAB HEMATOLOGY METHOD 07/17/2025 5:37 AM EDT [facility] MCH 27.4 26.0 - 32.0 pg LAB HEMATOLOGY METHOD 07/17/2025 5:37 AM EDT [facility] MCHC 31.3 30.7 - 35.5 g/dL LAB HEMATOLOGY METHOD 07/17/2025 5:37 AM EDT [facility] RDW 17.3(H) 11.5 - 14.5 % LAB HEMATOLOGY METHOD 07/17/2025 5:37 AM EDT [facility] MPV 10.4 8.8 - 12.5 fL LAB HEMATOLOGY METHOD 07/17/2025 5:37 AM EDT [facility] nRBC 0.1(H) <=0.0 per 100 WBCs LAB HEMATOLOGY METHOD 07/17/2025 5:37 AM EDT [facility] Blood Venous blood specimen / Unknown Venipuncture / Unknown 07/17/2025 5:20 AM EDT 07/17/2025 5:27 AM EDT us Anne Franco MD LAB BLOOD ORDERABLES Sarah bennett Result [facility] [address] [place] [address] * (ABNORMAL) POCT glucose meter (07/16/2025 8:24 [...] 07/16/2025 8:26 PM EDT [facility] Supervisor Decorating ID Lacie Marcelo 07/16/20 8:26 PM EDT [facility] Device ID [id number] 07/16/2025 8:26 PM EDT [facility] Specimen Type POC Capillary 07/16/2025 8:26 PM EDT [facility] Blood Capillary blood specimen / Unknown 07/16/2025 8:24 PM EDT 07/16/2025 8:26 PM EDT Anne Franco MD LAB POINT OF CARE TEST DOCKED DEVICE UNSOLICITED RESULTS Final Result [facility] [address] [place] [address] * (ABNORMAL) POCT glucose meter (07/16/2025 5:34 PM EDT) [facility] POCT Glucose 190(H) 74 - 99 [...] 07/16/2025 5:36 PM EDT [facility] Supervisor Decorating ID Diego Munroe 07/16/20 5:36 PM EDT [facility] Device ID [id number] 07/16/2025 5:36 PM EDT [facility] Specimen Type POC Capillary 07/16/2025 5:36 PM EDT [facility] Blood Capillary blood specimen / Unknown 07/16/2025 5:34 PM EDT 07/16/2025 5:36 PM EDT us Anne Franco MD LAB POINT OF CARE TEST DOCKED DEVICE UNSOLICITED RESULTS Final Result Performing Organization Address [facility] de Phone Number [facility] [address] [place] [address] * (ABNORMAL) POCT glucose meter (07/16/2025 12:06 [...] Comment 07/16/2025 12:08 PM EDT [facility]ALTH[facility] LAB Supervisor Decorating ID Diego Munroe 07/16/20 12:08 PM EDT HEALTH[facility]ARE LAB Device ID [id number] 07/16/2025 12:08 PM EDT [facility] Specimen Type POC Capillary 07/16/2025 12:08 PM EDT [facility] Blood Capillary blood specimen / Unknown 07/16/2025 12:06 PM EDT 07/16/2025 12:08 PM EDT us Anne Franco MD LAB POINT OF CARE TEST DOCKED DEVICE UNSOLICITED RESULTS Final Result Performing Organization Address City/[facility] Co de Phone Number [facility] [address] [place] [address] * XR Chest 1 View (07/16/2025 11:25 [...] Comment 07/16/2025 8:24 AM EDT [facility] Supervisor Decorating ID Diego Munroe 07/16/20 8:24 AM EDT [facility]ALTH[facility]ARE LAB Device ID [id number] 07/16/2025 8:24 AM EDT [facility] Specimen Type POC Capillary 07/16/2025 8:24 AM EDT [facility] Blood Capillary blood specimen / Unknown 07/16/2025 8:22 AM EDT 07/16/2025 8:24 AM EDT Anne Franco MD LAB POINT OF CARE TEST DOCKED DEVICE UNSOLICITED RESULTS Final Result Performing Organization Address City/[facility]/ZIP Co de Phone Number [facility] [address] [place] [address] * Phosphorus (07/16/2025 5:25 AM EDT) [facility] Phosphorus, Plasma 2.8 2.5 - 4.5 mg/dL 07/16/2025 7:12 AM EDT [facility] Blood Venous blood specimen / Unknown Venipuncture / Unknown 07/16/2025 5:25 AM EDT 07/16/2025 5:33 AM EDT us Anne Franco MD LAB BLOOD ORDERABLES Sarah l Result [facility] [address] [place] [address] * (ABNORMAL) Magnesium (07/16/2025 5:25 AM EDT) [facility] Magnesium, Plasma 1.8(L) 1.9 - 2.4 mg/dL 07/16/2025 7:12 AM EDT [facility] Blood Venous blood specimen / Unknown Venipuncture / Unknown 07/16/2025 5:25 AM EDT 07/16/2025 5:33 AM EDT us Anne Franco MD LAB BLOOD ORDERABLES Sarah sabrina Result [facility] [address] [place] [address] * (ABNORMAL) Basic metabolic panel (07/16/2025 5:25 AM EDT) Glucose, Plasma 149(H) 74 - 99 mg/dL 07/16/2025 6:01 AM EDT [facility] BUN, Plasma 9 7 - 21 mg/dL 07/16/2025 6:01 AM EDT [facility] Creatinine, Plasma 0.48(L) 0.60 - 1.10 mg/dL 07/16/2025 6:01 AM EDT [facility] BUN/Creatinine Ratio 19 07/16/2025 6:01 AM EDT [facility] Sodium, Plasma 140 136 - 145 mmol/L 07/16/2025 6:01 AM EDT [facility] Potassium, Plasma 3.4(L) 3.6 - 4.9 mmol/L 07/16/2025 6:01 AM EDT [facility] Chloride, Plasma 99 97 - 107 mmol/L 07/16/2025 6:01 AM EDT [facility] CO2, Plasma 31(H) 22 - 29 mmol/L 07/16/2025 6:01 AM EDT [facility] Anion Gap 10 6 - 16 mmol/L 07/16/2025 6:01 AM EDT [facility] Total Calcium, Plasma 8.6(L) 8.9 - 10.2 mg/dL 07/16/2025 6:01 AM EDT [facility] eGFRcr 116.3 mL/min/1.7 3m*2 07/16/2025 6:01 AM EDT [facility] Comment:Reported eGFRcr in m L/min/1.73m2 is based the CKD-EPI 2020 equation that does not use a race coefficient. Blood Venous blood specimen / Unknown Venipuncture / Unknown 07/16/2025 5:25 AM EDT 07/16/2025 5:33 AM EDT us Anne Franco MD LAB BLOOD ORDERABLES Sarah bennett Result [facility] [address] [place] [address] * (ABNORMAL) CBC W/O Differential (07/16/2025 5:25 AM EDT) WBC Count 22.22(H) 3.70 - 10.30 10*3/uL LAB HEMATOLOGY METHOD 07/16/2025 5:41 AM EDT [facility] RBC Count 3.30(L) 3.90 - 5.20 10*6/uL LAB HEMATOLOGY METHOD 07/16/2025 5:41 AM EDT [facility] HGB 8.9(L) 11.2 - 15.7 g/dL LAB HEMATOLOGY METHOD 07/16/2025 5:41 AM EDT [facility] HCT 28.9(L) 34.0 - 45.0 % LAB HEMATOLOGY METHOD 07/16/2025 5:41 AM EDT [facility] Platelet Count 376(H) 155 - 369 10*3/uL LAB HEMATOLOGY METHOD 07/16/2025 5:41 AM EDT [facility] MCV 88 79 - 98 fL LAB HEMATOLOGY METHOD 07/16/2025 5:41 AM EDT [facility] MCH 27.0 26.0 - 32.0 pg LAB HEMATOLOGY METHOD 07/16/2025 5:41 AM EDT [facility] MCHC 30.8 30.7 - 35.5 g/dL LAB HEMATOLOGY METHOD 07/16/2025 5:41 AM EDT [facility] RDW 17.2(H) 11.5 - 14.5 % LAB HEMATOLOGY METHOD 07/16/2025 5:41 AM EDT [facility] MPV 10.3 8.8 - 12.5 fL LAB HEMATOLOGY METHOD 07/16/2025 5:41 AM EDT [facility] nRBC 0.1(H) <=0.0 per 100 WBCs LAB HEMATOLOGY METHOD 07/16/2025 5:41 AM EDT [facility] Blood Venous blood specimen / Unknown Venipuncture / Unknown 07/16/2025 5:25 AM EDT 07/16/2025 5:33 AM EDT Anne Franco MD LAB BLOOD ORDERABLES Sarah l Result [facility] [address] [place] [address] * (ABNORMAL) POCT glucose meter (07/15/2025 9:38 PM EDT) [facility] POCT Glucose 173(H) 74 - 99 [...] Comment 07/15/2025 9:39 PM EDT [facility] Supervisor Decorating ID Yessenia Ramirez 9:39 PM EDT [facility]ALTH[facility]ARE LAB Device ID [id number] 07/15/2025 9:39 PM EDT [facility] Specimen Type POC Capillary 07/15/2025 9:39 PM EDT [facility] Blood Capillary blood specimen / Unknown 07/15/2025 9:38 PM EDT 07/15/2025 9:39 PM EDT us Anne Franco MD LAB POINT OF CARE TEST DOCKED DEVICE UNSOLICITED RESULTS Final Result Performing Organization Address City/[facility]/ZIP Co de Phone Number [facility] [address] [place] [address] * (ABNORMAL) POCT glucose meter (07/15/2025 6:03 [...] 07/15/2025 6:04 PM EDT [facility] Supervisor Decorating ID Venessa Amin 07/15/2025 6:04 PM EDT [facility] Device ID [id number] 07/15/2025 6:04 PM EDT [facility] Specimen Type POC Capillary 07/15/2025 6:04 PM EDT [facility] Blood Capillary blood specimen / Unknown 07/15/2025 6:03 PM EDT 07/15/2025 6:04 PM EDT Anne Franco MD LAB POINT OF CARE TEST DOCKED DEVICE UNSOLICITED RESULTS Final Result [facility] [address] [place] [address] * (ABNORMAL) POCT glucose meter (07/15/2025 12:38 PM EDT) [facility] POCT Glucose 153(H) 74 - 99 [...] 07/15/2025 12:40 PM EDT [facility] Supervisor Decorating ID Venessa Amin 07/15/2025 12:40 PM EDT [facility] Device ID [id number] 07/15/2025 12:40 PM EDT [facility] Specimen Type POC Capillary 07/15/2025 12:40 PM EDT [facility] Blood Capillary blood specimen / Unknown 07/15/2025 12:38 PM EDT 07/15/2025 12:40 PM EDT Anne Franco MD LAB POINT OF CARE TEST DOCKED DEVICE UNSOLICITED RESULTS Final Result Performing Organization Address [facility] de Phone Number [facility] [address] [place] [address] * (ABNORMAL) POCT glucose meter (07/15/2025 8:38 [...] for testing. Comment 07/15/2025 8:39 AM EDT [facility] Supervisor Decorating ID Venessa Amin 07/15/2025 8:39 AM EDT [facility] Device ID [id number] 07/15/2025 8:39 AM EDT [facility] Specimen Type POC Capillary 07/15/2025 8:39 AM EDT [facility] Blood Capillary blood specimen / Unknown 07/15/2025 8:38 AM EDT 07/15/2025 8:39 AM EDT Anne Franco MD LAB POINT OF CARE TEST DOCKED DEVICE UNSOLICITED RESULTS Final Result Performing Organization Address City/[facility] Co de Phone Number HEALTHCARE LAB [address] [place] [address] * (ABNORMAL) Phosphorus (07/15/2025 4:50 AM EDT) Phosphorus, Plasma 2.3(L) 2.5 - 4.5 mg/dL 07/15/2025 7:33 AM EDT [facility] Blood Venous blood specimen / Unknown Venipuncture / Unknown 07/15/2025 4:50 AM EDT 07/15/2025 4:59 AM EDT us Anne Franco MD LAB BLOOD ORDERABLES Sarah l Result [facility] [address] [place] [address] * Magnesium (07/15/2025 4:50 AM EDT) Magnesium, Plasma 1.9 1.9 - 2.4 mg/dL 07/15/2025 7:33 AM EDT [facility] Blood Venous blood specimen / Unknown Venipuncture / Unknown 07/15/2025 4:50 AM EDT 07/15/2025 4:59 AM EDT us Anne Franco MD LAB BLOOD ORDERABLES Sarah l Result Performing Organization Address [facility]/ZIP Co de Phone Number [facility] [address] [place] [address] * (ABNORMAL) Basic metabolic panel (07/15/2025 4:50 AM EDT) Glucose, Plasma 150(H) 74 - 99 mg/dL 07/15/2025 5:31 AM EDT [facility] BUN, Plasma 11 7 - 21 mg/dL 07/15/2025 5:31 AM EDT [facility] Creatinine, Plasma 0.54(L) 0.60 - 1.10 mg/dL 07/15/2025 5:31 AM EDT [facility] BUN/Creatinine Ratio 20 07/15/2025 5:31 AM EDT [facility] Sodium, Plasma 136 136 - 145 mmol/L 07/15/2025 5:31 AM EDT [facility] Potassium, Plasma 4.1 3.6 - 4.9 mmol/L 07/15/2025 5:31 AM EDT [facility] Chloride, Plasma 95(L) 97 - 107 mmol/L 07/15/2025 5:31 AM EDT [facility] CO2, Plasma 32(H) 22 - 29 mmol/L 07/15/2025 5:31 AM EDT [facility] Anion Gap 9 6 - 16 mmol/L 07/15/2025 5:31 AM EDT [facility] Total Calcium, Plasma 8.8(L) 8.9 - 10.2 mg/dL 07/15/2025 5:31 AM EDT [facility] eGFRcr 113.0 mL/min/1.7 3m*2 07/15/2025 5:31 AM EDT [facility] Comment:Reported eGFRcr in m L/min/1.73m2 is based the CKD-EPI 2020 equation that does not use a race coefficient. Blood Venous blood specimen / Unknown Venipuncture / Unknown 07/15/2025 4:50 AM EDT 07/15/2025 4:59 AM EDT us Anne Franco MD LAB BLOOD ORDERABLES Sarah l Result Performing Organization Address City/State/[facility] Co de Phone Number [facility] [address] [place] [address] * (ABNORMAL) POCT glucose meter (07/14/2025 7:57 [...] Comment 07/14/2025 7:58 PM EDT HEALTHCARE LAB Supervisor Decorating ID Bernard Chirinos 07/14/20 7:58 PM EDT HEALTHCARE LAB Device ID [id number] 07/14/2025 7:58 PM EDT HEALTHCARE LAB Specimen Type POC Capillary 07/14/2025 7:58 PM EDT [facility]ALTH[facility]ARE LAB Blood Capillary blood specimen / Unknown 07/14/2025 7:57 PM EDT 07/14/2025 7:58 PM EDT us Anne Franco MD LAB POINT OF CARE TEST DOCKED DEVICE UNSOLICITED RESULTS Final Result Performing Organization Address City/State/[facility] Co de Phone Number [facility] [address] [place] [address] * (ABNORMAL) POCT glucose meter (07/14/2025 4:56 PM EDT) [facility] POCT Glucose 154(H) 74 - 99 [...] Comment 07/14/2025 4:58 PM EDT HEALTHCARE LAB Supervisor Decorating ID Riana Higgins 07/14/2025 4:58 PM EDT HEALTHCARE LAB Device ID [id number] 07/14/2025 4:58 PM EDT HEALTHCARE LAB Specimen Type POC Capillary 07/14/2025 4:58 PM EDT [facility] Blood Capillary blood specimen / Unknown 07/14/2025 4:56 PM EDT 07/14/2025 4:58 PM EDT Anne Franco MD LAB POINT OF CARE TEST DOCKED DEVICE UNSOLICITED RESULTS Final Result Performing Organization Address [facility] Co de Phone Number [facility] [address] [place] [address] * (ABNORMAL) POCT glucose meter (07/14/2025 12:38 PM EDT) [facility] POCT Glucose 143(H) 74 - 99 mg/dL [...] 07/14/2025 12:39 PM EDT [facility] Supervisor Decorating ID Laura Baez 025 12:39 PM EDT HEALTHCARE LAB Device ID [id number] 07/14/2025 12:39 PM EDT HEALTHCARE LAB Specimen Type POC Capillary 07/14/2025 12:39 PM EDT [facility]ALTH[facility]ARE LAB Blood Capillary blood specimen / Unknown 07/14/2025 12:38 PM EDT 07/14/2025 12:39 PM EDT us Anne Franco MD LAB POINT OF CARE TEST DOCKED DEVICE UNSOLICITED RESULTS Final Result [facility] [address] [place] [address] * (ABNORMAL) Basic metabolic panel (07/14/2025 9:36 AM EDT) Glucose, Plasma 191(H) 74 - 99 mg/dL 07/14/2025 10:15 AM EDT [facility] BUN, Plasma 16 7 - 21 mg/dL 07/14/2025 10:15 AM EDT [facility] Creatinine, Plasma 0.61 0.60 - 1.10 mg/dL 07/14/2025 10:15 AM EDT [facility] BUN/Creatinine Ratio 26 07/14/2025 10:15 AM EDT [facility] Sodium, Plasma 138 136 - 145 mmol/L 07/14/2025 10:15 AM EDT [facility] Potassium, Plasma 3.2(L) 3.6 - 4.9 mmol/L 07/14/2025 10:15 AM EDT [facility] Chloride, Plasma 96(L) 97 - 107 mmol/L 07/14/2025 10:15 AM EDT [facility] CO2, Plasma 33(H) 22 - 29 mmol/L 07/14/2025 10:15 AM EDT [facility] Anion Gap 9 6 - 16 mmol/L 07/14/2025 10:15 AM EDT [facility] Total Calcium, Plasma 8.7(L) 8.9 - 10.2 mg/dL 07/14/2025 10:15 AM EDT [facility] eGFRcr 109.8 mL/min/1.7 3m*2 07/14/2025 10:15 AM EDT [facility] Comment:Reported eGFRcr in m L/min/1.73m2 is based the CKD-EPI 2020 equation that does not use a race coefficient. Blood Venous blood specimen / Unknown Venipuncture / Unknown 07/14/2025 9:36 AM EDT 07/14/2025 9:44 AM EDT us Anne Franco MD LAB BLOOD ORDERABLES Sarah l Result Performing Organization Address City/[facility]/ZIP Co de Phone Number [facility] [address] [place] [address] * (ABNORMAL) Magnesium, Plasma (07/14/2025 9:36 AM EDT) Magnesium, Plasma 1.7(L) 1.9 - 2.4 mg/dL 07/14/2025 10:15 AM EDT [facility] Blood Venous blood specimen / Unknown Venipuncture / Unknown 07/14/2025 9:36 AM EDT 07/14/2025 9:44 AM EDT us Anne Franco MD LAB BLOOD ORDERABLES Sarah l Result Performing Organization Address [facility] Co de Phone Number [facility] [address] [place] [address] * (ABNORMAL) Phosphorus, Plasma (07/14/2025 9:36 AM EDT) Phosphorus, Plasma 2.2(L) 2.5 - 4.5 mg/dL 07/14/2025 10:15 AM EDT [facility] Blood Venous blood specimen / Unknown Venipuncture / Unknown 07/14/2025 9:36 AM EDT 07/14/2025 9:44 AM EDT us Anne Franco MD LAB BLOOD ORDERABLES Sarah l Result Performing Organization Address City/[facility] Co de Phone Number [facility] [address] [place] [address] * (ABNORMAL) CBC W/O Differential (07/14/2025 9:36 AM EDT) [facility] Signature WBC Count 21.20(H) 3.70 - 10.30 10*3/uL LAB HEMATOLOGY METHOD 07/14/2025 9:52 AM EDT [facility] RBC Count 3.37(L) 3.90 - 5.20 10*6/uL LAB HEMATOLOGY METHOD 07/14/2025 9:52 AM EDT [facility] HGB 9.2(L) 11.2 - 15.7 g/dL LAB HEMATOLOGY METHOD 07/14/2025 9:52 AM EDT [facility] HCT 29.4(L) 34.0 - 45.0 % LAB HEMATOLOGY METHOD 07/14/2025 9:52 AM EDT [facility] Platelet Count 314 155 - 369 10*3/uL LAB HEMATOLOGY METHOD 07/14/2025 9:52 AM EDT [facility] MCV 87 79 - 98 fL LAB HEMATOLOGY METHOD 07/14/2025 9:52 AM EDT [facility] MCH 27.3 26.0 - 32.0 pg LAB HEMATOLOGY METHOD 07/14/2025 9:52 AM EDT [facility] MCHC 31.3 30.7 - 35.5 g/dL LAB HEMATOLOGY METHOD 07/14/2025 9:52 AM EDT [facility] RDW 17.2(H) 11.5 - 14.5 % LAB HEMATOLOGY METHOD 07/14/2025 9:52 AM EDT [facility] MPV 10.2 8.8 - 12.5 fL LAB HEMATOLOGY METHOD 07/14/2025 9:52 AM EDT [facility] nRBC 0.1(H) <=0.0 per 100 WBCs LAB HEMATOLOGY METHOD 07/14/2025 9:52 AM EDT [facility] Blood Venous blood specimen / Unknown Venipuncture / Unknown 07/14/2025 9:36 AM EDT 07/14/2025 9:44 AM EDT us Anne Franco MD LAB BLOOD ORDERABLES Sarah bennett Result [facility] [address] [place] [address] * (ABNORMAL) POCT glucose meter (07/14/2025 8:39 AM EDT) [facility] POCT Glucose 185(H) 74 - 99 mg/dL [...] 07/14/2025 8:41 AM EDT [facility] Supervisor Decorating ID Laura Baez 025 8:41 AM EDT [employer] HEALTHCARE LAB Device ID [id number] 07/14/2025 8:41 AM EDT HEALTHCARE LAB Specimen Type POC Capillary 07/14/2025 8:41 AM EDT [facility]ALTH[facility] LAB Blood Capillary blood specimen / Unknown 07/14/2025 8:39 AM EDT 07/14/2025 8:41 AM EDT Anne Franco MD LAB POINT OF CARE TEST DOCKED DEVICE UNSOLICITED RESULTS Final Result [facility] [address] [place] [address] * (ABNORMAL) POCT glucose meter (07/14/2025 6:18 AM EDT) [facility] POCT Glucose 178(H) 74 - 99 [...] 07/14/2025 6:20 AM EDT [facility] Supervisor Decorating ID Rita Alejandro 6:20 AM EDT [facility] Device ID [id number] 07/14/2025 6:20 AM EDT HEALTHCARE LAB Specimen Type POC Capillary 07/14/2025 6:20 AM EDT HEALTHCARE LAB Blood Capillary blood specimen / Unknown 07/14/2025 6:18 AM EDT 07/14/2025 6:20 AM EDT Anne Franco MD LAB POINT OF CARE TEST DOCKED DEVICE UNSOLICITED RESULTS Final Result Performing Organization Address City/[facility] Co de Phone Number [facility] [address] [place] [address] * (ABNORMAL) POCT glucose meter (07/13/2025 9:18 [...] Comment 07/13/2025 9:19 PM EDT HEALTHCARE LAB Supervisor Decorating ID Yenny Tong 025 9:19 PM EDT HEALTHCARE LAB Device ID [id number] 07/13/2025 9:19 PM EDT HEALTHCARE LAB Specimen Type POC Capillary 07/13/2025 9:19 PM EDT [facility]ALTH[facility]ARE LAB Blood Capillary blood specimen / Unknown 07/13/2025 9:18 PM EDT 07/13/2025 9:19 PM EDT Anne Franco MD LAB POINT OF CARE TEST DOCKED DEVICE UNSOLICITED RESULTS Final Result Performing Organization Address City/[facility] Co de Phone Number HEALTHCARE LAB [address] [place] [address] * (ABNORMAL) POCT glucose meter (07/13/2025 6:01 [...] 07/13/2025 6:02 PM EDT [facility] Supervisor Decorating ID Laura Baez 025 6:02 PM EDT [facility] Device ID [id number] 07/13/2025 6:02 PM EDT HEALTHCARE LAB Specimen Type POC Capillary 07/13/2025 6:02 PM EDT [facility]ALTH[facility]ARE LAB Blood Capillary blood specimen / Unknown 07/13/2025 6:01 PM EDT 07/13/2025 6:02 PM EDT Anne Franco MD LAB POINT OF CARE TEST DOCKED DEVICE UNSOLICITED RESULTS Final Result Performing Organization Address City/State/[facility] Co de Phone Number [facility] [address] [place] [address] * (ABNORMAL) POCT glucose meter (07/13/2025 12:12 PM EDT) [facility] POCT Glucose 139(H) 74 - 99 mg/dL [...] Comment 07/13/2025 12:14 PM EDT HEALTHCARE LAB Supervisor Decorating ID Laura Baez 025 12:14 PM EDT [facility] Device ID [id number] 07/13/2025 12:14 PM EDT HEALTHCARE LAB Specimen Type POC Capillary 07/13/2025 12:14 PM EDT [facility]ARE LAB Blood Capillary blood specimen / Unknown 07/13/2025 12:12 PM EDT 07/13/2025 12:14 PM EDT us Anne Franco MD LAB POINT OF CARE TEST DOCKED DEVICE UNSOLICITED RESULTS Final Result Performing Organization Address City/[facility]/ZIP Co de Phone Number [facility] [address] [place] [address] * (ABNORMAL) Phosphorus (07/13/2025 10:21 AM EDT) Phosphorus, Plasma 2.2(L) 2.5 - 4.5 mg/dL 07/13/2025 11:23 AM EDT [facility] Blood Venous blood specimen / Unknown Venipuncture / Unknown 07/13/2025 10:21 AM EDT 07/13/2025 10:31 AM EDT us Luanne Crawford MD LAB BLOOD ORDERABLES Final Result Performing Organization Address City/[facility]/ZIP Co de Phone Number [facility] [address] [place] [address] * (ABNORMAL) Magnesium, Plasma (07/13/2025 10:21 AM EDT) Magnesium, Plasma 1.7(L) 1.9 - 2.4 mg/dL 07/13/2025 11:23 AM EDT [facility] Blood Venous blood specimen / Unknown Venipuncture / Unknown 07/13/2025 10:21 AM EDT 07/13/2025 10:31 AM EDT us Luanne Crawford MD LAB BLOOD ORDERABLES Final Result [facility] [address] [place] [address] * (ABNORMAL) Basic Metabolic Panel, Plasma (07/13/2025 10:21 AM EDT) Glucose, Plasma 135(H) 74 - 99 mg/dL 07/13/2025 11:23 AM EDT [facility] BUN, Plasma 22(H) 7 - 21 mg/dL 07/13/2025 11:23 AM EDT [facility] Creatinine, Plasma 0.62 0.60 - 1.10 mg/dL 07/13/2025 11:23 AM EDT [facility] BUN/Creatinine Ratio 35 07/13/2025 11:23 AM EDT [facility] Sodium, Plasma 138 136 - 145 mmol/L 07/13/2025 11:23 AM EDT [facility] Potassium, Plasma 3.7 3.6 - 4.9 mmol/L 07/13/2025 11:23 AM EDT [facility] Chloride, Plasma 95(L) 97 - 107 mmol/L 07/13/2025 11:23 AM EDT [facility] CO2, Plasma 30(H) 22 - 29 mmol/L 07/13/2025 11:23 AM EDT [facility] Anion Gap 13 6 - 16 mmol/L 07/13/2025 11:23 AM EDT [facility] Total Calcium, Plasma 9.0 8.9 - 10.2 mg/dL 07/13/2025 11:23 AM EDT [facility] eGFRcr 109.3 mL/min/1.7 3m*2 07/13/2025 11:23 AM EDT [facility] Comment:Reported eGFRcr in m L/min/1.73m2 is based the CKD-EPI 2020 equation that does not use a race coefficient. Blood Venous blood specimen / Unknown Venipuncture / Unknown 07/13/2025 10:21 AM EDT 07/13/2025 10:31 AM EDT us Luanne Crawford MD LAB BLOOD ORDERABLES Final Result [facility] [address] [place] [address] * (ABNORMAL) CBC W/O Differential (07/13/2025 10:21 AM EDT) WBC Count 19.56(H) 3.70 - 10.30 10*3/uL LAB HEMATOLOGY METHOD 07/13/2025 10:59 AM EDT [facility] RBC Count 3.67(L) 3.90 - 5.20 10*6/uL LAB HEMATOLOGY METHOD 07/13/2025 10:59 AM EDT [facility] HGB 10.2(L) 11.2 - 15.7 g/dL LAB HEMATOLOGY METHOD 07/13/2025 10:59 AM EDT [facility] HCT 32.3(L) 34.0 - 45.0 % LAB HEMATOLOGY METHOD 07/13/2025 10:59 AM EDT [facility] Platelet Count 296 155 - 369 10*3/uL LAB HEMATOLOGY METHOD 07/13/2025 10:59 AM EDT [facility] MCV 88 79 - 98 fL LAB HEMATOLOGY METHOD 07/13/2025 10:59 AM EDT [facility] MCH 27.8 26.0 - 32.0 pg LAB HEMATOLOGY METHOD 07/13/2025 10:59 AM EDT [facility] MCHC 31.6 30.7 - 35.5 g/dL LAB HEMATOLOGY METHOD 07/13/2025 10:59 AM EDT [facility] RDW 17.6(H) 11.5 - 14.5 % LAB HEMATOLOGY METHOD 07/13/2025 10:59 AM EDT [facility] MPV 10.3 8.8 - 12.5 fL LAB HEMATOLOGY METHOD 07/13/2025 10:59 AM EDT [facility] nRBC 0.0 <=0.0 per 100 WBCs LAB HEMATOLOGY METHOD 07/13/2025 10:59 AM EDT [facility] Blood Venous blood specimen / Unknown Venipuncture / Unknown 07/13/2025 10:21 AM EDT 07/13/2025 10:31 AM EDT us Luanne Crawford MD LAB BLOOD ORDERABLES Final Result [facility] [address] [place] [address] * (ABNORMAL) POCT glucose meter (07/13/2025 8:50 AM EDT) [facility] POCT Glucose 102(H) 74 - 99 mg/dL 07/13/2025 8:53 AM EDT [facility] Comment:Accuracy of a [...] Comment 07/13/2025 8:53 AM EDT HEALTHCARE LAB Supervisor Decorating ID Laura Baez 025 8:53 AM EDT HEALTHCARE LAB Device ID [id number] 07/13/2025 8:53 AM EDT [facility]ALTHCARE LAB Specimen Type POC Capillary 07/13/2025 8:53 AM EDT [facility]ALTH[facility] LAB Blood Capillary blood specimen / Unknown 07/13/2025 8:50 AM EDT 07/13/2025 8:53 AM EDT us Anne Franco MD LAB POINT OF CARE TEST DOCKED DEVICE UNSOLICITED RESULTS Final Result Performing Organization Address City/State/[facility] de Phone Number HEALTHCARE LAB [address] [place] [address] * (ABNORMAL) POCT glucose meter (07/13/2025 6:11 AM EDT) [facility] POCT Glucose 111(H) 74 - 99 [...] Comment 07/13/2025 6:13 AM EDT HEALTHCARE LAB Supervisor Decorating ID Rita Alejandro 6:13 AM EDT HEALTHCARE LAB Device ID [id number] 07/13/2025 6:13 AM EDT [facility]ALTH[facility]ARE LAB Specimen Type POC Capillary 07/13/2025 6:13 AM EDT [facility]ALTH[facility] LAB Blood Capillary blood specimen / Unknown 07/13/2025 6:11 AM EDT 07/13/2025 6:13 AM EDT us Anne Franco MD LAB POINT OF CARE TEST DOCKED DEVICE UNSOLICITED RESULTS Final Result [facility] [address] [place] [address] * (ABNORMAL) POCT glucose meter (07/12/2025 9:28 PM EDT) [facility] POCT Glucose 107(H) 74 - 99 mg/dL [...] 07/12/2025 9:30 PM EDT [facility] Supervisor Decorating ID Yenny Tong 025 9:30 PM EDT [facility] Device ID [id number] 07/12/2025 9:30 PM EDT [facility] Specimen Type POC Capillary 07/12/2025 9:30 PM EDT [facility] Blood Capillary blood specimen / Unknown 07/12/2025 9:28 PM EDT 07/12/2025 9:30 PM EDT Anne Franco MD LAB POINT OF CARE TEST DOCKED DEVICE UNSOLICITED RESULTS Final Result [facility] [address] [place] [address] * (ABNORMAL) POCT glucose meter (07/12/2025 6:04 PM EDT) [facility] POCT Glucose 129(H) 74 - 99 mg/dL [...] 07/12/2025 6:06 PM EDT [facility] Supervisor Decorating ID Jeana Bear 07/12/2025 6:06 PM EDT [facility] Device ID [id number] 07/12/2025 6:06 PM EDT [facility] Specimen Type POC Capillary 07/12/2025 6:06 PM EDT [facility] Blood Capillary blood specimen / Unknown 07/12/2025 6:04 PM EDT 07/12/2025 6:06 PM EDT Anne Franco MD LAB POINT OF CARE TEST DOCKED DEVICE UNSOLICITED RESULTS Final Result [facility] [address] [place] [address] * PERIPHERAL IV ([employer] LINK) (07/12/2025 3:51 [...] POCT glucose meter (07/12/2025 11:55 AM EDT) [facility] POCT Glucose 119(H) 74 - 99 [...] Comment 07/12/2025 11:56 AM EDT HEALTHCARE LAB Supervisor Decorating ID Jeana Bear 07/12/2025 11:56 AM EDT HEALTHCARE LAB Device ID [id number] 07/12/2025 11:56 AM EDT [facility]ALTHCARE LAB Specimen Type POC Capillary 07/12/2025 11:56 AM EDT [facility]ALTH[facility] LAB Blood Capillary blood specimen / Unknown 07/12/2025 11:55 AM EDT 07/12/2025 11:56 AM EDT Dorcas Hennessy MD LAB POINT OF CARE TE ST DOCKED DEVICE UNSOLICITED RESULTS Final Result [facility] [address] [place] [address] * XR Chest 1 View (07/12/2025 11:11 [...] 07/12/2025 12:14 PM Final report signed by Myo Khoury MD on 07/12/2025 12:15 PM us [...] for testing. Comment 07/12/2025 8:42 AM EDT [facility] Supervisor Decorating ID Jeaan Bear 07/12/2025 8:42 AM EDT [facility] Device ID [id number] 07/12/2025 8:42 AM EDT [facility] Specimen Type POC Capillary 07/12/2025 8:42 AM EDT [facility] Blood Capillary blood specimen / Unknown 07/12/2025 8:41 AM EDT 07/12/2025 8:42 AM EDT us Dorcas Hennessy MD LAB POINT OF CARE TE ST DOCKED DEVICE UNSOLICITED RESULTS Final Result Performing Organization Address City/State/[facility] Co de Phone Number [facility]ARE LAB [address] [place] [address] * Phosphorus (07/12/2025 12:25 AM EDT) Phosphorus, Plasma 2.9 2.5 - 4.5 mg/dL 07/12/2025 1:22 AM EDT [facility] Blood Venous blood specimen / Unknown Venipuncture / Unknown 07/12/2025 12:25 AM EDT 07/12/2025 12:52 AM EDT us Luanne Crawford MD LAB BLOOD ORDERABLES Final Result [facility] [address] [place] [address] * Magnesium, Plasma (07/12/2025 12:25 AM EDT) Magnesium, Plasma 2.0 1.9 - 2.4 mg/dL 07/12/2025 1:22 AM EDT [facility] Blood Venous blood specimen / Unknown Venipuncture / Unknown 07/12/2025 12:25 AM EDT 07/12/2025 12:52 AM EDT us Luanne Crawford MD LAB BLOOD ORDERABLES Final Result Performing Organization Address [facility]/ZIP Co de Phone Number [facility] [address] [place] [address] * (ABNORMAL) Basic Metabolic Panel, Plasma (07/12/2025 12:25 AM EDT) Glucose, Plasma 92 74 - 99 mg/dL 07/12/2025 1:22 AM EDT [facility] BUN, Plasma 18 7 - 21 mg/dL 07/12/2025 1:22 AM EDT [facility] Creatinine, Plasma 0.84 0.60 - 1.10 mg/dL 07/12/2025 1:22 AM EDT [facility] BUN/Creatinine Ratio 21 07/12/2025 1:22 AM EDT [facility] Sodium, Plasma 142 136 - 145 mmol/L 07/12/2025 1:22 AM EDT [facility] Potassium, Plasma 3.6 3.6 - 4.9 mmol/L 07/12/2025 1:22 AM EDT [facility] Chloride, Plasma 103 97 - 107 mmol/L 07/12/2025 1:22 AM EDT [facility] CO2, Plasma 31(H) 22 - 29 mmol/L 07/12/2025 1:22 AM EDT [facility] Anion Gap 8 6 - 16 mmol/L 07/12/2025 1:22 AM EDT [facility] Total Calcium, Plasma 8.8(L) 8.9 - 10.2 mg/dL 07/12/2025 1:22 AM EDT [facility] eGFRcr 85.3 mL/min/1.7 3m*2 07/12/2025 1:22 AM EDT [facility] Comment:Reported eGFRcr in m L/min/1.73m2 is based the CKD-EPI 2020 equation that does not use a race coefficient. Blood Venous blood specimen / Unknown Venipuncture / Unknown 07/12/2025 12:25 AM EDT 07/12/2025 12:52 AM EDT us Luanne Crawford MD LAB BLOOD ORDERABLES Final Result [facility] [address] [place] [address] * (ABNORMAL) CBC W/O Differential (07/12/2025 12:25 AM EDT) WBC Count 15.81(H) 3.70 - 10.30 10*3/uL LAB HEMATOLOGY METHOD 07/12/2025 1:05 AM EDT [facility] RBC Count 3.39(L) 3.90 - 5.20 10*6/uL LAB HEMATOLOGY METHOD 07/12/2025 1:05 AM EDT [facility] HGB 9.3(L) 11.2 - 15.7 g/dL LAB HEMATOLOGY METHOD 07/12/2025 1:05 AM EDT [facility] HCT 29.8(L) 34.0 - 45.0 % LAB HEMATOLOGY METHOD 07/12/2025 1:05 AM EDT [facility] Platelet Count 276 155 - 369 10*3/uL LAB HEMATOLOGY METHOD 07/12/2025 1:05 AM EDT [facility] MCV 88 79 - 98 fL LAB HEMATOLOGY METHOD 07/12/2025 1:05 AM EDT [facility] MCH 27.4 26.0 - 32.0 pg LAB HEMATOLOGY METHOD 07/12/2025 1:05 AM EDT [facility] MCHC 31.2 30.7 - 35.5 g/dL LAB HEMATOLOGY METHOD 07/12/2025 1:05 AM EDT [facility] RDW 18.0(H) 11.5 - 14.5 % LAB HEMATOLOGY METHOD 07/12/2025 1:05 AM EDT [facility] MPV 10.5 8.8 - 12.5 fL LAB HEMATOLOGY METHOD 07/12/2025 1:05 AM EDT [facility] nRBC 0.0 <=0.0 per 100 WBCs LAB HEMATOLOGY METHOD 07/12/2025 1:05 AM EDT [facility] Blood Venous blood specimen / Unknown Venipuncture / Unknown 07/12/2025 12:25 AM EDT 07/12/2025 12:55 AM EDT us Luanne Crawford MD LAB BLOOD ORDERABLES Final Result Performing Organization Address [facility] Co de Phone Number [facility] [address] [place] [address] * (ABNORMAL) POCT Glucose (if patient NPO, on TPN or continuous nutrition) (07/11/2025 8:45 PM EDT) POCT Glucose 119(A) 74 - 99 mg/dL [facility] Test Strip Lot Number \[id number]\ HEALTHCARE LAB Test Strip Expiration 09/24/2026 [facility] Blood Venous blood specimen / Unknown 07/11/2025 8:45 PM EDT us Dorcas Hennessy MD POINT OF CARE TEST ENTER/EDIT OR DERABLES Final Result Performing Organization Address City/[facility] Co de Phone Number [facility] [address] [place] [address] * (ABNORMAL) POCT Glucose - Before Meals and Bedtime (07/11/2025 8:43 PM EDT) POCT Glucose 119(A) 74 - 99 mg/dL [facility] Test Strip Lot Number [id number] [facility]ARE LAB Test Strip Expiration 09/24/2026 [facility] Blood Venous blood specimen / Unknown 07/11/2025 8:43 PM EDT us Dorcas Hennessy MD POINT OF CARE TEST ENTER/EDIT OR DERABLES Final Result [facility] [address] [place] [address] * (ABNORMAL) POCT glucose meter (07/11/2025 8:42 PM EDT) [facility] POCT Glucose 119(H) 74 - 99 [...] Comment 07/11/2025 8:43 PM EDT [facility] Supervisor Decorating ID Jf Cruz 07/11/2025 8:43 PM EDT [facility] Device ID [id number] 07/11/2025 8:43 PM EDT [facility] Specimen Type POC Capillary 07/11/2025 8:43 PM EDT [facility] Blood Capillary blood specimen / Unknown 07/11/2025 8:42 PM EDT 07/11/2025 8:43 PM EDT Dorcas Hennessy MD LAB POINT OF CARE TE ST DOCKED DEVICE UNSOLICITED RESULTS Final Result Performing Organization Address City/[facility]/ZIP Co de Phone Number [facility] [address] [place] [address] * (ABNORMAL) POCT glucose meter (07/11/2025 5:38 PM EDT) [facility] POCT Glucose 142(H) 74 - 99 mg/dL [...] 07/11/2025 5:40 PM EDT [facility] Supervisor Decorating ID Ayana Amato 07/11/2025 5:40 PM EDT [facility] Device ID [id number] 07/11/2025 5:40 PM EDT [facility] Specimen Type POC Capillary 07/11/2025 5:40 PM EDT [facility] Blood Capillary blood specimen / Unknown 07/11/2025 5:38 PM EDT 07/11/2025 5:40 PM EDT us Dorcas Hennessy MD LAB POINT OF CARE TE ST DOCKED DEVICE UNSOLICITED RESULTS Final Result Performing Organization Address City/[facility] Co de Phone Number [facility] [address] [place] [address] * (ABNORMAL) POCT glucose meter (07/11/2025 3:36 PM EDT) Pathologist [facility] POCT Glucose 144(H) 74 - [...] 07/11/2025 3:38 PM EDT [facility] Supervisor Decorating ID Radha Frias 07/11/20 3:38 PM EDT [facility] Device ID [id number] 07/11/2025 3:38 PM EDT [facility] Specimen Type POC Venous 07/11/2025 3:38 PM EDT [facility] Blood Venous blood specimen / Unknown 07/11/2025 3:36 PM EDT 07/11/2025 3:38 PM EDT us Dorcas Hennessy MD LAB POINT OF CARE TE ST DOCKED DEVICE UNSOLICITED RESULTS Final Result Performing Organization Address City/[facility] Co de Phone Number [facility] [address] [place] [address] * (ABNORMAL) POCT glucose meter (07/11/2025 1:52 [...] 07/11/2025 1:54 PM EDT [facility] Supervisor Decorating ID Ayana Amato 07/11/2025 1:54 PM EDT [facility] Device ID [id number] 07/11/2025 1:54 PM EDT [facility] Specimen Type POC Capillary 07/11/2025 1:54 PM EDT [facility] Blood Capillary blood specimen / Unknown 07/11/2025 1:52 PM EDT 07/11/2025 1:54 PM EDT Dorcas Hennessy MD LAB POINT OF CARE TE ST DOCKED DEVICE UNSOLICITED RESULTS Final Result Performing Organization Address City/State/[facility] Co de Phone Number [facility] [address] [place] [address] * (ABNORMAL) POCT glucose meter (07/11/2025 12:12 PM EDT) [facility] POCT Glucose 154(H) 74 - 99 [...] 07/11/2025 12:13 PM EDT [facility] Supervisor Decorating ID Ayana Amato 07/11/2025 12:13 PM EDT [facility] Device ID [id number] 07/11/2025 12:13 PM EDT [facility] Specimen Type POC Capillary 07/11/2025 12:13 PM EDT [facility] Blood Capillary blood specimen / Unknown 07/11/2025 12:12 PM EDT 07/11/2025 12:13 PM EDT us Luanne Crawford MD LAB POINT OF CARE TEST DOCKED DEVICE UNSOLICITED RESULTS Final Result Performing Organization Address [facility] de Phone Number [facility] [address] [place] [address] * (ABNORMAL) POCT glucose meter (07/11/2025 9:57 [...] Comment 07/11/2025 9:59 AM EDT HEALTHCARE LAB Supervisor Decorating ID Ayana Amato 07/11/2025 9:59 AM EDT HEALTHCARE LAB Device ID [id number] 07/11/2025 9:59 AM EDT HEALTHCARE LAB Specimen Type POC Capillary 07/11/2025 9:59 AM EDT [facility] Blood Capillary blood specimen / Unknown 07/11/2025 9:57 AM EDT 07/11/2025 9:59 AM EDT us Luanne Crawford MD LAB POINT OF CARE TEST DOCKED DEVICE UNSOLICITED RESULTS Final Result Performing Organization Address City/[facility] de Phone Number [facility] [address] [place] [address] * [place] CRITICAL CARE, E/M 30-74 MINUTES (07/11/2025 8:41 [...] POCT glucose meter (07/11/2025 8:13 AM EDT) [facility] POCT Glucose 140(H) 74 - 99 mg/dL 07/11/2025 8:15 AM EDT [facility] Comment:Accuracy of a glucos e result [...] for testing. Comment 07/11/2025 8:15 AM EDT [facility] Supervisor Decorating ID Ayana Amato 07/11/2025 8:15 AM EDT [facility] Device ID [id number] 07/11/2025 8:15 AM EDT [facility] Specimen Type POC Capillary 07/11/2025 8:15 AM EDT [facility] Blood Capillary blood specimen / Unknown 07/11/2025 8:13 AM EDT 07/11/2025 8:15 AM EDT Luanne Crawford MD LAB POINT OF CARE TEST DOCKED DEVICE UNSOLICITED RESULTS Final Result Performing Organization Address City/[facility] Co de Phone Number [facility] [address] [place] [address] * (ABNORMAL) POCT glucose meter (07/11/2025 6:03 [...] Comment 07/11/2025 6:05 AM EDT [facility]ALTHCARE LAB Supervisor Decorating ID Cheyanne Briceño 07/11/2025 6:05 AM EDT HEALTHCARE LAB Device ID [id number] 07/11/2025 6:05 AM EDT [facility] Specimen Type POC Capillary 07/11/2025 6:05 AM EDT [facility] Blood Capillary blood specimen / Unknown 07/11/2025 6:03 AM EDT 07/11/2025 6:05 AM EDT Luanne Crawford MD LAB POINT OF CARE TEST DOCKED DEVICE UNSOLICITED RESULTS Final Result Performing Organization Address City/[facility]/ZIP Co de Phone Number [facility] [address] [place] [address] * (ABNORMAL) POCT glucose meter (07/11/2025 4:04 [...] 07/11/2025 4:06 AM EDT [facility] Supervisor Decorating ID Cheyanne Briceño 07/11/2025 4:06 AM EDT [facility] Device ID [id number] 07/11/2025 4:06 AM EDT [facility] LAB Specimen Type POC Capillary 07/11/2025 4:06 AM EDT [facility] Blood Capillary blood specimen / Unknown 07/11/2025 4:04 AM EDT 07/11/2025 4:06 AM EDT us Luanne Crawford MD LAB POINT OF CARE TEST DOCKED DEVICE UNSOLICITED RESULTS Final Result Performing Organization Address [facility] de Phone Number [facility] [address] [place] [address] * (ABNORMAL) POCT glucose meter (07/11/2025 2:02 AM EDT) [facility] POCT Glucose 130(H) 74 - 99 [...] Comment 07/11/2025 2:03 AM EDT [facility]ALTH[facility]ARE LAB Supervisor Decorating ID Cheyanne Briceño 07/11/2025 2:03 AM EDT [facility]ALTHCARE LAB Device ID [id number] 07/11/2025 2:03 AM EDT [facility] LAB Specimen Type POC Capillary 07/11/2025 2:03 AM EDT [facility] Blood Capillary blood specimen / Unknown 07/11/2025 2:02 AM EDT 07/11/2025 2:03 AM EDT us Luanne Crawford MD LAB POINT OF CARE TEST DOCKED DEVICE UNSOLICITED RESULTS Final Result Performing Organization Address City/[facility] Co de Phone Number [facility] [address] [place] [address] * Phosphorus (07/11/2025 12:09 AM EDT) Phosphorus, Plasma 3.7 2.5 - 4.5 mg/dL 07/11/2025 12:54 AM EDT [facility] Blood Venous blood specimen / Unknown Venipuncture / Unknown 07/11/2025 12:09 AM EDT 07/11/2025 12:26 AM EDT Luanne Crawford MD LAB BLOOD ORDERABLES Final Result [facility] [address] [place] [address] * (ABNORMAL) Magnesium, Plasma (07/11/2025 12:09 AM EDT) Magnesium, Plasma 1.8(L) 1.9 - 2.4 mg/dL 07/11/2025 12:54 AM EDT [facility] Blood Venous blood specimen / Unknown Venipuncture / Unknown 07/11/2025 12:09 AM EDT 07/11/2025 12:26 AM EDT Luanne Crawford MD LAB BLOOD ORDERABLES Final Result [facility] [address] [place] [address] * (ABNORMAL) Basic Metabolic Panel, Plasma (07/11/2025 12:09 AM EDT) Glucose, Plasma 163(H) 74 - 99 mg/dL 07/11/2025 12:54 AM EDT [facility] BUN, Plasma 20 7 - 21 mg/dL 07/11/2025 12:54 AM EDT [facility] Creatinine, Plasma 0.99 0.60 - 1.10 mg/dL 07/11/2025 12:54 AM EDT [facility] BUN/Creatinine Ratio 20 07/11/2025 12:54 AM EDT [facility] Sodium, Plasma 141 136 - 145 mmol/L 07/11/2025 12:54 AM EDT [facility] Potassium, Plasma 3.8 3.6 - 4.9 mmol/L 07/11/2025 12:54 AM EDT [facility] Chloride, Plasma 104 97 - 107 mmol/L 07/11/2025 12:54 AM EDT [facility] CO2, Plasma 27 22 - 29 mmol/L 07/11/2025 12:54 AM EDT [facility] Anion Gap 10 6 - 16 mmol/L 07/11/2025 12:54 AM EDT [facility] Total Calcium, Plasma 9.1 8.9 - 10.2 mg/dL 07/11/2025 12:54 AM EDT [facility] eGFRcr 70.0 mL/min/1.7 3m*2 07/11/2025 12:54 AM EDT [facility] Comment:Reported eGFRcr in m L/min/1.73m2 is based the CKD-EPI 2020 equation that does not use a race coefficient. Blood Venous blood specimen / Unknown Venipuncture / Unknown 07/11/2025 12:09 AM EDT 07/11/2025 12:26 AM EDT us Luanne Crawford MD LAB BLOOD ORDERABLES Final Result [facility] [address] [place] [address] * (ABNORMAL) CBC W/O Differential (07/11/2025 12:09 AM EDT) WBC Count 13.23(H) 3.70 - 10.30 10*3/uL LAB HEMATOLOGY METHOD 07/11/2025 12:36 AM EDT [facility] RBC Count 3.65(L) 3.90 - 5.20 10*6/uL LAB HEMATOLOGY METHOD 07/11/2025 12:36 AM EDT [facility] HGB 10.1(L) 11.2 - 15.7 g/dL LAB HEMATOLOGY METHOD 07/11/2025 12:36 AM EDT [facility] HCT 32.1(L) 34.0 - 45.0 % LAB HEMATOLOGY METHOD 07/11/2025 12:36 AM EDT [facility] Platelet Count 270 155 - 369 10*3/uL LAB HEMATOLOGY METHOD 07/11/2025 12:36 AM EDT [facility] MCV 88 79 - 98 fL LAB HEMATOLOGY METHOD 07/11/2025 12:36 AM EDT [facility] MCH 27.7 26.0 - 32.0 pg LAB HEMATOLOGY METHOD 07/11/2025 12:36 AM EDT [facility] MCHC 31.5 30.7 - 35.5 g/dL LAB HEMATOLOGY METHOD 07/11/2025 12:36 AM EDT [facility] RDW 17.9(H) 11.5 - 14.5 % LAB HEMATOLOGY METHOD 07/11/2025 12:36 AM EDT [facility] MPV 10.7 8.8 - 12.5 fL LAB HEMATOLOGY METHOD 07/11/2025 12:36 AM EDT [facility] nRBC 0.0 <=0.0 per 100 WBCs LAB HEMATOLOGY METHOD 07/11/2025 12:36 AM EDT [facility] Blood Venous blood specimen / Unknown Venipuncture / Unknown 07/11/2025 12:09 AM EDT 07/11/2025 12:29 AM EDT us Luanne Crawford MD LAB BLOOD ORDERABLES Final Result [facility] [address] [place] [address] * (ABNORMAL) POCT glucose meter (07/11/2025 12:04 AM EDT) [facility] POCT Glucose 156(H) 74 - 99 [...] Comment 07/11/2025 12:06 AM EDT [facility]ALTH[facility]ARE LAB Supervisor Decorating ID Cheyanne Briceño 07/11/2025 12:06 AM EDT HEALTHCARE LAB Device ID [id number] 07/11/2025 12:06 AM EDT [facility]ALTH[facility]ARE LAB Specimen Type POC Capillary 07/11/2025 12:06 AM EDT [facility] LAB Blood Capillary blood specimen / Unknown 07/11/2025 12:04 AM EDT 07/11/2025 12:06 AM EDT us Luanne Crawford MD LAB POINT OF CARE TEST DOCKED DEVICE UNSOLICITED RESULTS Final Result Performing Organization Address City/[facility] Co de Phone Number [facility] [address] [place] [address] * (ABNORMAL) POCT glucose meter (07/10/2025 10:02 PM EDT) [facility] POCT Glucose 202(H) 74 - 99 [...] Comment 07/10/2025 10:03 PM EDT HEALTHCARE LAB Supervisor Decorating ID Lidia Ugalde 07/10/2025 10:03 PM EDT HEALTHCARE LAB Device ID [id number] 07/10/2025 10:03 PM EDT HEALTHCARE LAB Specimen Type POC Capillary 07/10/2025 10:03 PM EDT [facility]ARE LAB Blood Capillary blood specimen / Unknown 07/10/2025 10:02 PM EDT 07/10/2025 10:03 PM EDT us Luanne Crawford MD LAB POINT OF CARE TEST DOCKED DEVICE UNSOLICITED RESULTS Final Result Performing Organization Address [facility] Co de Phone Number [facility]ARE [facility] [address] [place] [address] * (ABNORMAL) Blood gas panel, arterial (07/10/2025 8:23 PM EDT) pH, Arterial 7.30(L) 7.35 - 7.45 LAB HEMATOLOGY METHOD 07/10/2025 8:40 PM EDT [facility] pCO2, Arterial 57(H) 35 - 48 mmHg LAB HEMATOLOGY METHOD 07/10/2025 8:40 PM EDT [facility] pO2, Arterial 80(L) 83 - 108 mmHg LAB HEMATOLOGY METHOD 07/10/2025 8:40 PM EDT [facility] SO2, Measured, Arterial 95 94 - 98 % LAB HEMATOLOGY METHOD 07/10/2025 8:40 PM EDT [facility] Base Excess, Arterial 1.1 -2.0 - 3.0 mmol/L LAB HEMATOLOGY METHOD 07/10/2025 8:40 PM EDT [facility] Bicarbonate, Calculated, Arterial 28(H) 22 - 26 mmol/L LAB HEMATOLOGY METHOD 07/10/2025 8:40 PM EDT [facility] Hematocrit, Whole Blood 31.5(L) 34.0 - 45.0 % LAB HEMATOLOGY METHOD 07/10/2025 8:40 PM EDT [facility] Sodium, Whole Blood 138 136 - 145 mmol/L LAB HEMATOLOGY METHOD 07/10/2025 8:40 PM EDT [facility] Potassium, Whole Blood 3.9 3.6 - 4.9 mmol/L LAB HEMATOLOGY METHOD 07/10/2025 8:40 PM EDT [facility] Chloride, Whole Blood 103 97 - 107 mmol/L LAB HEMATOLOGY METHOD 07/10/2025 8:40 PM EDT [facility] Glucose, Whole Blood 206(H) 74 - 99 mg/dL LAB HEMATOLOGY METHOD 07/10/2025 8:40 PM EDT [facility] Ionized Calcium, Whole Blood 5.0 4.6 - 5.1 mg/dL LAB HEMATOLOGY METHOD 07/10/2025 8:40 PM EDT [facility] Lactate, Arterial, Whole Blood 1.7(H) 0.5 - 1.6 mmol/L LAB HEMATOLOGY METHOD 07/10/2025 8:40 PM EDT [facility] Blood Arterial blood specimen / Unknown Arterial Puncture / Unknown 07/10/2025 8:23 PM EDT 07/10/2025 8:35 PM EDT us Luanne Crawford MD LAB BLOOD ORDERABLES Final Result [facility] [address] [place] [address] * (ABNORMAL) POCT glucose meter (07/10/2025 8:03 PM EDT) [facility] POCT Glucose 206(H) 74 - 99 [...] Comment 07/10/2025 8:05 PM EDT [facility]ALTH[facility]ARE LAB Supervisor Decorating ID Cheyanne Briceño 07/10/2025 8:05 PM EDT HEALTH[facility]ARE LAB Device ID [id number] 07/10/2025 8:05 PM EDT HEALTHCARE LAB Specimen Type POC Capillary 07/10/2025 8:05 PM EDT [facility] Blood Capillary blood specimen / Unknown 07/10/2025 8:03 PM EDT 07/10/2025 8:05 PM EDT Luanne Crawford MD LAB POINT OF CARE TEST DOCKED DEVICE UNSOLICITED RESULTS Final Result [facility] [address] [place] [address] * (ABNORMAL) POCT glucose meter (07/10/2025 6:22 PM EDT) [facility] POCT Glucose 150(H) 74 - 99 [...] 07/10/2025 6:25 PM EDT [facility] Supervisor Decorating ID Zara Segovia 025 6:25 PM EDT HEALTHCARE LAB Device ID [id number] 07/10/2025 6:25 PM EDT [facility]ARE LAB Specimen Type POC Capillary 07/10/2025 6:25 PM EDT [facility] Blood Capillary blood specimen / Unknown 07/10/2025 6:22 PM EDT 07/10/2025 6:25 PM EDT us Luanne Crawfrod MD LAB POINT OF CARE TEST DOCKED DEVICE UNSOLICITED RESULTS Final Result Performing Organization Address City/[facility] Co de Phone Number [facility] [address] [place] [address] * (ABNORMAL) POCT glucose meter (07/10/2025 2:17 PM EDT) [facility] POCT Glucose 145(H) 74 - 99 [...] for testing. Comment 07/10/2025 2:19 PM EDT [facility] Supervisor Decorating ID Zara Segovia 025 2:19 PM EDT HEALTHCARE LAB Device ID [id number] 07/10/2025 2:19 PM EDT [facility] LAB Specimen Type POC Arterial 07/10/2025 2:19 PM EDT [facility] Blood Arterial blood specimen / Unknown 07/10/2025 2:17 PM EDT 07/10/2025 2:19 PM EDT us Luanne Crawford MD LAB POINT OF CARE TEST DOCKED DEVICE UNSOLICITED RESULTS Final Result Performing Organization Address [facility] Co de Phone Number [facility] [address] [place] [address] * XR Abdomen 1 View (07/10/2025 12:03 [...] of the abdomen. COMPARISON: None. FINDINGS: Limited [id number] abdominal radiograph for the purpose of locating tube position. The tip of the nasogastric tube is within the mid stomach. Procedure Note Bernabe Sen MD - 07/10/2025 CLINICAL INDICATION: feeding tube placement TECHNIQUE: Supine radiograph of the abdomen. COMPARISON: None. FINDINGS: Limited jvgkn-ig-[id number] abdominal radiograph for the purpose of locatingtube [...] - 99 mg/dL 07/10/2025 12:02 PM EDT [facility] Comment:Accuracy of a glucos e result [...] for testing. Comment 07/10/2025 12:02 PM EDT [facility] Supervisor Decorating ID Segovia, Martina F 025 12:02 PM EDT [facility] Device ID [id number] 07/10/2025 12:02 PM EDT HEALTHCARE LAB Specimen Type POC Arterial 07/10/2025 12:02 PM EDT [facility]ALTH[facility]ARE LAB Blood Arterial blood specimen / Unknown 07/10/2025 12:00 PM EDT 07/10/2025 12:02 PM EDT us Luanne Crawford MD LAB POINT OF CARE TEST DOCKED DEVICE UNSOLICITED RESULTS Final Result Performing Organization Address City/[facility] Co de Phone Number [facility] [address] [place] [address] * (ABNORMAL) POCT glucose meter (07/10/2025 9:50 AM EDT) Pathologist [facility] POCT Glucose 134(H) 74 - 99 mg/dL [...] Comment 07/10/2025 9:52 AM EDT [facility]ALTHCARE LAB Supervisor Decorating ID Zara Segovia 025 9:52 AM EDT HEALTHCARE LAB Device ID [id number] 07/10/2025 9:52 AM EDT [facility]ALTH[facility]ARE LAB Specimen Type POC Arterial 07/10/2025 9:52 AM EDT [facility] Blood Arterial blood specimen / Unknown 07/10/2025 9:50 AM EDT 07/10/2025 9:52 AM EDT us Luanne Crawford MD LAB POINT OF CARE TEST DOCKED DEVICE UNSOLICITED RESULTS Final Result Performing Organization Address City/[facility] Co de Phone Number [facility] [address] [place] [address] * ECG Adult (07/10/2025 8:42 AM EDT) EKG DIAGNOSIS CLASS Abnormal MUSE ECG Ventricular Rate 79 BPM MUSE ECG Atrial Rate 79 BPM MUSE ECG RI Interval 188 ms MUSE ECG QRSD Interval 90 ms MUSE ECG QT Interval 354 ms MUSE ECG QTC Interval 405 ms MUSE ECG P Andreas 44 degrees MUSE ECG R Andreas 17 degrees MUSE ECG T Wave Andreas 27 degrees MUSE ECG Diagnosis Sinus rhythm [...] ORDERABLES Final Resu lt MUSE ECG * RI CRITICAL CARE, E/M 30-74 MINUTES (07/10/2025 8:15 [...] for testing. Comment 07/10/2025 9:22 AM EDT [facility] Supervisor Decorating ID Zara Segovia 025 9:22 AM EDT [facility] Device ID [id number] 07/10/2025 9:22 AM EDT [facility] Specimen Type POC Arterial 07/10/2025 9:22 AM EDT [facility] Blood Arterial blood specimen / Unknown 07/10/2025 8:04 AM EDT 07/10/2025 9:22 AM EDT us Luanne Crawford MD LAB POINT OF CARE TEST DOCKED DEVICE UNSOLICITED RESULTS Final Result [facility] [address] [place] [id number] * (ABNORMAL) POCT glucose meter (07/10/2025 6:04 [...] 07/10/2025 6:05 AM EDT [facility] Supervisor Decorating ID Cheyanne Briceño 07/10/2025 6:05 AM EDT HEALTHCARE LAB Device ID [id number] 07/10/2025 6:05 AM EDT [facility]ALTH[facility]ARE LAB Specimen Type POC Arterial 07/10/2025 6:05 AM EDT [facility] Blood Arterial blood specimen / Unknown 07/10/2025 6:04 AM EDT 07/10/2025 6:05 AM EDT us Luanne Crawford MD LAB POINT OF CARE TEST DOCKED DEVICE UNSOLICITED RESULTS Final Result Performing Organization Address [facility] de Phone Number [facility]ARE [facility] [address] [place] [address] * (ABNORMAL) POCT glucose meter (07/10/2025 3:59 AM EDT) [facility] POCT Glucose 153(H) 74 - 99 [...] Comment 07/10/2025 4:01 AM EDT [facility]ALTH[facility]ARE LAB Supervisor Decorating ID Cheyanne Briceño 07/10/2025 4:01 AM EDT HEALTHCARE LAB Device ID [id number] 07/10/2025 4:01 AM EDT [facility]ALTH[facility]ARE LAB Specimen Type POC Arterial 07/10/2025 4:01 AM EDT [facility] Blood Arterial blood specimen / Unknown 07/10/2025 3:59 AM EDT 07/10/2025 4:01 AM EDT us Luanne Crawford MD LAB POINT OF CARE TEST DOCKED DEVICE UNSOLICITED RESULTS Final Result Performing Organization Address City/[facility] Co de Phone Number [facility] [address] [place] [address] * (ABNORMAL) POCT glucose meter (07/10/2025 3:01 AM EDT) [facility] POCT Glucose 165(H) 74 - 99 mg/dL [...] Comment 07/10/2025 3:03 AM EDT [facility]ALTH[facility]ARE LAB Supervisor Decorating ID Cheyanne Briceño 07/10/2025 3:03 AM EDT [facility]ALTH[facility]ARE LAB Device ID [id number] 07/10/2025 3:03 AM EDT [facility]ARE LAB Specimen Type POC Arterial 07/10/2025 3:03 AM EDT [facility] Blood Arterial blood specimen / Unknown 07/10/2025 3:01 AM EDT 07/10/2025 3:03 AM EDT us Luanne Crawford MD LAB POINT OF CARE TEST DOCKED DEVICE UNSOLICITED RESULTS Final Result [facility] [address] [place] [address] * (ABNORMAL) POCT glucose meter (07/10/2025 2:03 AM EDT) [facility] POCT Glucose 180(H) 74 - 99 mg/dL [...] 07/10/2025 2:04 AM EDT [facility] Supervisor Decorating ID Cheyanne Briceño 07/10/2025 2:04 AM EDT [facility] Device ID [id number] 07/10/2025 2:04 AM EDT [facility]ALTH[facility]ARE LAB Specimen Type POC Arterial 07/10/2025 2:04 AM EDT [facility] Blood Arterial blood specimen / Unknown 07/10/2025 2:03 AM EDT 07/10/2025 2:04 AM EDT us Luanne Crawford MD LAB POINT OF CARE TEST DOCKED DEVICE UNSOLICITED RESULTS Final Result Performing Organization Address City/[facility]/ZIP Co de Phone Number [facility] [address] [place] [address] * (ABNORMAL) POCT glucose meter (07/10/2025 12:59 AM EDT) Pathologist [facility] POCT Glucose 158(H) 74 - 99 mg/dL 07/10/2025 1:00 AM EDT [facility] Comment:Accuracy of a [...] for testing. Comment 07/10/2025 1:00 AM EDT [facility] Supervisor Decorating ID Cheyanne Briceño 07/10/2025 1:00 AM EDT [facility] Device ID [id number] 07/10/2025 1:00 AM EDT [facility] Specimen Type POC Arterial 07/10/2025 1:00 AM EDT [facility] Blood Arterial blood specimen / Unknown 07/10/2025 12:59 AM EDT 07/10/2025 1:00 AM EDT us Luanne Crawford MD LAB POINT OF CARE TEST DOCKED DEVICE UNSOLICITED RESULTS Final Result Performing Organization Address City/[facility]/ZIP Co de Phone Number [facility] [address] [place] [address] * Phosphorus (07/10/2025 12:03 AM EDT) Pathologist [facility] Phosphorus, Plasma 4.2 2.5 - 4.5 mg/dL 07/10/2025 12:40 AM EDT [facility] Blood Arterial blood specimen / Unknown Venipuncture / Unknown 07/10/2025 12:03 AM EDT 07/10/2025 12:10 AM EDT us Luanne Crawford MD LAB BLOOD ORDERABLES Final Result Performing Organization Address City/[facility]/ZIP Co de Phone Number [facility] [address] [place] [address] * Magnesium, Plasma (07/10/2025 12:03 AM EDT) Magnesium, Plasma 2.1 1.9 - 2.4 mg/dL 07/10/2025 12:40 AM EDT [facility] Blood Arterial blood specimen / Unknown Venipuncture / Unknown 07/10/2025 12:03 AM EDT 07/10/2025 12:10 AM EDT us Luanne Crawford MD LAB BLOOD ORDERABLES Final Result Performing Organization Address [facility]/ZIP Co de Phone Number [facility] [address] [place] [address] * (ABNORMAL) Basic Metabolic Panel, Plasma (07/10/2025 12:03 AM EDT) Glucose, Plasma 155(H) 74 - 99 mg/dL 07/10/2025 12:40 AM EDT [facility] BUN, Plasma 22(H) 7 - 21 mg/dL 07/10/2025 12:40 AM EDT [facility] Creatinine, Plasma 1.25(H) 0.60 - 1.10 mg/dL 07/10/2025 12:40 AM EDT [facility] BUN/Creatinine Ratio 18 07/10/2025 12:40 AM EDT [facility] Sodium, Plasma 134(L) 136 - 145 mmol/L 07/10/2025 12:40 AM EDT [facility] Potassium, Plasma 3.7 3.6 - 4.9 mmol/L 07/10/2025 12:40 AM EDT [facility] Chloride, Plasma 101 97 - 107 mmol/L 07/10/2025 12:40 AM EDT [facility] CO2, Plasma 25 22 - 29 mmol/L 07/10/2025 12:40 AM EDT [facility] Anion Gap 8 6 - 16 mmol/L 07/10/2025 12:40 AM EDT [facility] Total Calcium, Plasma 9.3 8.9 - 10.2 mg/dL 07/10/2025 12:40 AM EDT [facility] eGFRcr 52.9 mL/min/1.7 3m*2 07/10/2025 12:40 AM EDT [facility] Comment:Reported eGFRcr in m L/min/1.73m2 is based the CKD-EPI 2020 equation that does not use a race coefficient. Blood Arterial blood specimen / Unknown Venipuncture / Unknown 07/10/2025 12:03 AM EDT 07/10/2025 12:10 AM EDT us Luanne Crawford MD LAB BLOOD ORDERABLES Final Result [facility] [address] [place] [address] * (ABNORMAL) CBC W/O Differential (07/10/2025 12:03 AM EDT) WBC Count 17.64(H) 3.70 - 10.30 10*3/uL LAB HEMATOLOGY METHOD 07/10/2025 12:22 AM EDT [facility] RBC Count 3.83(L) 3.90 - 5.20 10*6/uL LAB HEMATOLOGY METHOD 07/10/2025 12:22 AM EDT [facility] HGB 10.6(L) 11.2 - 15.7 g/dL LAB HEMATOLOGY METHOD 07/10/2025 12:22 AM EDT [facility] HCT 33.3(L) 34.0 - 45.0 % LAB HEMATOLOGY METHOD 07/10/2025 12:22 AM EDT [facility] Platelet Count 309 155 - 369 10*3/uL LAB HEMATOLOGY METHOD 07/10/2025 12:22 AM EDT [facility] MCV 87 79 - 98 fL LAB HEMATOLOGY METHOD 07/10/2025 12:22 AM EDT [facility] MCH 27.7 26.0 - 32.0 pg LAB HEMATOLOGY METHOD 07/10/2025 12:22 AM EDT [facility] MCHC 31.8 30.7 - 35.5 g/dL LAB HEMATOLOGY METHOD 07/10/2025 12:22 AM EDT [facility] RDW 17.9(H) 11.5 - 14.5 % LAB HEMATOLOGY METHOD 07/10/2025 12:22 AM EDT [facility] MPV 10.3 8.8 - 12.5 fL LAB HEMATOLOGY METHOD 07/10/2025 12:22 AM EDT [facility] nRBC 0.0 <=0.0 per 100 WBCs LAB HEMATOLOGY METHOD 07/10/2025 12:22 AM EDT [facility] Blood Arterial blood specimen / Unknown Venipuncture / Unknown 07/10/2025 12:03 AM EDT 07/10/2025 12:11 AM EDT us Luanne Crawford MD LAB BLOOD ORDERABLES Final Result [facility] [address] [place] [address] * (ABNORMAL) POCT glucose meter (07/10/2025 12:02 [...] Comment 07/10/2025 12:04 AM EDT [facility] Supervisor Decorating ID Cheyanne Briceño 07/10/2025 12:04 AM EDT [facility] Device ID [id number] 07/10/2025 12:04 AM EDT [facility] Specimen Type POC Arterial 07/10/2025 12:04 AM EDT [facility] Blood Arterial blood specimen / Unknown 07/10/2025 12:02 AM EDT 07/10/2025 12:04 AM EDT us Luanne Crawford MD LAB POINT OF CARE TEST DOCKED DEVICE UNSOLICITED RESULTS Final Result Performing Organization Address City/[place] [facility] Co de Phone Number HEALTHCARE LAB [address] [place] [address] * (ABNORMAL) POCT glucose meter (07/09/2025 10:01 [...] for testing. Comment 07/09/2025 10:04 PM EDT [facility] Supervisor Decorating ID Cheyanne Briceño 07/09/2025 10:04 PM EDT [facility] Device ID [id number] 07/09/2025 10:04 PM EDT [facility] Specimen Type POC Arterial 07/09/2025 10:04 PM EDT [facility] Blood Arterial blood specimen / Unknown 07/09/2025 10:01 PM EDT 07/09/2025 10:04 PM EDT us Luanne Crawford MD LAB POINT OF CARE TEST DOCKED DEVICE UNSOLICITED RESULTS Final Result Performing Organization Address City/[facility] Co de Phone Number [facility] [address] [place] [address] * (ABNORMAL) POCT glucose meter (07/09/2025 8:09 [...] Comment 07/09/2025 8:11 PM EDT HEALTHCARE LAB Supervisor Decorating ID Cheyanne Briceño 07/09/2025 8:11 PM EDT HEALTHCARE LAB Device ID [id number] 07/09/2025 8:11 PM EDT [facility]ALTHCARE LAB Specimen Type POC Capillary 07/09/2025 8:11 PM EDT [facility]ARE LAB Blood Capillary blood specimen / Unknown 07/09/2025 8:09 PM EDT 07/09/2025 8:11 PM EDT us Luanne Crawford MD LAB POINT OF CARE TEST DOCKED DEVICE UNSOLICITED RESULTS Final Result Performing Organization Address City/[facility]/ZIP Co de Phone Number [facility] [address] [place] [address] * (ABNORMAL) POCT glucose meter (07/09/2025 6:22 PM EDT) [facility] POCT Glucose 151(H) 74 - 99 [...] Comment 07/09/2025 6:24 PM EDT HEALTHCARE LAB Supervisor Decorating ID Jeana Bear 07/09/2025 6:24 PM EDT HEALTHCARE LAB Device ID [id number] 07/09/2025 6:24 PM EDT HEALTHCARE LAB Specimen Type POC Capillary 07/09/2025 6:24 PM EDT [facility] Blood Capillary blood specimen / Unknown 07/09/2025 6:22 PM EDT 07/09/2025 6:24 PM EDT us Luanne Crawford MD LAB POINT OF CARE TEST DOCKED DEVICE UNSOLICITED RESULTS Final Result Performing Organization Address City/[facility]/ZIP Co de Phone Number HEALTHCARE [facility] [address] [place] [address] * (ABNORMAL) POCT glucose meter (07/09/2025 4:06 PM EDT) [facility] POCT Glucose 144(H) 74 - 99 [...] Comment 07/09/2025 4:07 PM EDT HEALTHCARE LAB Supervisor Decorating ID Jeana Bear 07/09/2025 4:07 PM EDT HEALTHCARE LAB Device ID [id number] 07/09/2025 4:07 PM EDT [facility] Specimen Type POC Capillary 07/09/2025 4:07 PM EDT [facility] Blood Capillary blood specimen / Unknown 07/09/2025 4:06 PM EDT 07/09/2025 4:07 PM EDT us Luanne Crawford MD LAB POINT OF CARE TEST DOCKED DEVICE UNSOLICITED RESULTS Final Result Performing Organization Address City/State/[facility] Co de Phone Number HEALTHCARE LAB [address] [place] [address] * (ABNORMAL) Blood gas, arterial (07/09/2025 3:16 PM EDT) [facility] pH, Arterial 7.31(L) 7.35 - 7.45 LAB HEMATOLOGY METHOD 07/09/2025 3:40 PM EDT [facility] pCO2, Arterial 53(H) 35 - 48 mmHg LAB HEMATOLOGY METHOD 07/09/2025 3:40 PM EDT [facility] pO2, Arterial 153(H) 83 - 108 mmHg LAB HEMATOLOGY METHOD 07/09/2025 3:40 PM EDT [facility] SO2, Measured, Arterial 100(H) 94 - 98 % LAB HEMATOLOGY METHOD 07/09/2025 3:40 PM EDT [facility] Base Excess, Arterial -0.4 -2.0 - 3.0 mmol/L LAB HEMATOLOGY METHOD 07/09/2025 3:40 PM EDT [facility] Bicarbonate, Calculated, Arterial 26 22 - 26 mmol/L LAB HEMATOLOGY METHOD 07/09/2025 3:40 PM EDT [facility] Hematocrit, Whole Blood 30.6(L) 34.0 - 45.0 % LAB HEMATOLOGY METHOD 07/09/2025 3:40 PM EDT [facility] Sodium, Whole Blood 141 136 - 145 mmol/L LAB HEMATOLOGY METHOD 07/09/2025 3:40 PM EDT [facility] Potassium, Whole Blood 3.4(L) 3.6 - 4.9 mmol/L LAB HEMATOLOGY METHOD 07/09/2025 3:40 PM EDT [facility] Chloride, Whole Blood 107 97 - 107 mmol/L LAB HEMATOLOGY METHOD 07/09/2025 3:40 PM EDT [facility] Glucose, Whole Blood 141(H) 74 - 99 mg/dL LAB HEMATOLOGY METHOD 07/09/2025 3:40 PM EDT [facility] Ionized Calcium, Whole Blood 4.9 4.6 - 5.1 mg/dL LAB HEMATOLOGY METHOD 07/09/2025 3:40 PM EDT [facility] Lactate, Arterial, Whole Blood 0.9 0.5 - 1.6 mmol/L LAB HEMATOLOGY METHOD 07/09/2025 3:40 PM EDT [facility] Blood Arterial blood specimen / Unknown Arterial Line / Unknown 07/09/2025 3:16 PM EDT 07/09/2025 3:38 PM EDT us Luanne Crawford MD LAB BLOOD ORDERABLES Final Result [facility] [address] [place] [address] * (ABNORMAL) POCT glucose meter (07/09/2025 3:01 PM EDT) POCT Glucose 135(H) 74 - 99 mg/dL 07/09/2025 3:03 PM EDT [facility] Comment:Accuracy of a [...] 07/09/2025 3:03 PM EDT [facility] Supervisor Decorating ID Jeana Bear 07/09/2025 3:03 PM EDT [facility] Device ID [id number] 07/09/2025 3:03 PM EDT [facility] Specimen Type POC Capillary 07/09/2025 3:03 PM EDT [facility] Blood Capillary blood specimen / Unknown 07/09/2025 3:01 PM EDT 07/09/2025 3:03 PM EDT Luanne Crawford MD LAB POINT OF CARE TEST DOCKED DEVICE UNSOLICITED RESULTS Final Result Performing Organization Address [facility] de Phone Number HEALTHCARE LAB [address] [place] [address] * (ABNORMAL) POCT glucose meter (07/09/2025 1:57 PM EDT) [facility] POCT Glucose 115(H) 74 - 99 [...] Comment 07/09/2025 1:59 PM EDT HEALTHCARE LAB Supervisor Decorating ID Jeana Bear 07/09/2025 1:59 PM EDT HEALTHCARE LAB Device ID [id number] 07/09/2025 1:59 PM EDT [facility] Specimen Type POC Capillary 07/09/2025 1:59 PM EDT [facility]ARE [facility] Blood Capillary blood specimen / Unknown 07/09/2025 1:57 PM EDT 07/09/2025 1:59 PM EDT us Luanne Crawford MD LAB POINT OF CARE TEST DOCKED DEVICE UNSOLICITED RESULTS Final Result Performing Organization Address City/[facility] Co de Phone Number [facility] [address] [place] [address] * Phosphorus (07/09/2025 1:21 PM EDT) Phosphorus, Plasma 4.2 2.5 - 4.5 mg/dL 07/09/2025 2:49 PM EDT [facility] Blood Arterial blood specimen / Unknown Arterial Line / Unknown 07/09/2025 1:21 PM EDT 07/09/2025 2:01 PM EDT Luanne Crawford MD LAB BLOOD ORDERABLES Final Result [facility] [address] [place] [address] * Magnesium (07/09/2025 1:21 PM EDT) Magnesium, Plasma 2.3 1.9 - 2.4 mg/dL 07/09/2025 2:49 PM EDT [facility] Blood Arterial blood specimen / Unknown Arterial Line / Unknown 07/09/2025 1:21 PM EDT 07/09/2025 2:01 PM EDT us Luanne Crawford MD LAB BLOOD ORDERABLES Final Result Performing Organization Address [facility]/ZIP Co de Phone Number [facility] [address] [place] [address] * (ABNORMAL) Basic metabolic panel (07/09/2025 1:21 PM EDT) Glucose, Plasma 100(H) 74 - 99 mg/dL 07/09/2025 2:49 PM EDT [facility] BUN, Plasma 26(H) 7 - 21 mg/dL 07/09/2025 2:49 PM EDT [facility] Creatinine, Plasma 1.42(H) 0.60 - 1.10 mg/dL 07/09/2025 2:49 PM EDT [facility] BUN/Creatinine Ratio 18 07/09/2025 2:49 PM EDT [facility] Sodium, Plasma 140 136 - 145 mmol/L 07/09/2025 2:49 PM EDT [facility] Potassium, Plasma 3.7 3.6 - 4.9 mmol/L 07/09/2025 2:49 PM EDT [facility] Chloride, Plasma 104 97 - 107 mmol/L 07/09/2025 2:49 PM EDT [facility] CO2, Plasma 24 22 - 29 mmol/L 07/09/2025 2:49 PM EDT [facility] Anion Gap 12 6 - 16 mmol/L 07/09/2025 2:49 PM EDT [facility] Total Calcium, Plasma 9.1 8.9 - 10.2 mg/dL 07/09/2025 2:49 PM EDT [facility] eGFRcr 45.4 mL/min/1.7 3m*2 07/09/2025 2:49 PM EDT [facility] Comment:Reported eGFRcr in m L/min/1.73m2 is based the CKD-EPI 2020 equation that does not use a race coefficient. Blood Arterial blood specimen / Unknown Arterial Line / Unknown 07/09/2025 1:21 PM EDT 07/09/2025 2:01 PM EDT us Luanne Crawford MD LAB BLOOD ORDERABLES Final Result [facility] [address] [place] [address] * (ABNORMAL) POCT glucose meter (07/09/2025 1:20 [...] Comment 07/09/2025 1:22 PM EDT HEALTHCARE LAB Supervisor Decorating ID Jeana Bear 07/09/2025 1:22 PM EDT HEALTHCARE LAB Device ID [id number] 07/09/2025 1:22 PM EDT HEALTHCARE LAB Specimen Type POC Arterial 07/09/2025 1:22 PM EDT HEALTHCARE LAB Blood Arterial blood specimen / Unknown 07/09/2025 1:20 PM EDT 07/09/2025 1:22 PM EDT Luanne Crawford MD LAB POINT OF CARE TEST DOCKED DEVICE UNSOLICITED RESULTS Final Result [facility] [address] [place] [address] * (ABNORMAL) POCT glucose meter (07/09/2025 12:44 [...] Comment 07/09/2025 12:45 PM EDT HEALTHCARE LAB Supervisor Decorating ID Jeana Bear 07/09/2025 12:45 PM EDT [facility] Device ID [id number] 07/09/2025 12:45 PM EDT [facility] Specimen Type POC Capillary 07/09/2025 12:45 PM EDT HEALTHCARE LAB Blood Capillary blood specimen / Unknown 07/09/2025 12:44 PM EDT 07/09/2025 12:45 PM EDT us Luanne Crawford MD LAB POINT OF CARE TEST DOCKED DEVICE UNSOLICITED RESULTS Final Result [facility] [address] [place] [address] * (ABNORMAL) POCT glucose meter (07/09/2025 12:19 [...] Comment 07/09/2025 12:21 PM EDT HEALTHCARE LAB Supervisor Decorating ID Jeana Bear 07/09/2025 12:21 PM EDT HEALTHCARE LAB Device ID [id number] 07/09/2025 12:21 PM EDT HEALTHCARE LAB Specimen Type POC Capillary 07/09/2025 12:21 PM EDT HEALTHCARE LAB Blood Capillary blood specimen / Unknown 07/09/2025 12:19 PM EDT 07/09/2025 12:21 PM EDT us Luanne Crawford MD LAB POINT OF CARE TEST DOCKED DEVICE UNSOLICITED RESULTS Final Result Performing Organization Address [facility] Co de Phone Number [facility] [address] [place] [address] * Blood Culture (Aerobic/Anaerobet Set) (07/09/2025 10:35 AM EDT) Culture No growth at day 5 KAROLINA 07/14/2025 12:02 PM EDT [facility] Blood Structure of antecubital vein / Unknown Venipuncture / Unknown 07/09/2025 10:35 AM EDT 07/09/2025 10:50 AM EDT us My Charles MD LAB MICROBIOLOGY - GENE RAL ORDERABLES Final Result [facility] [address] [place] [address] * Blood Culture (Aerobic/Anaerobet Set) (07/09/2025 10:35 AM EDT) Culture No growth at day 5 KAROLINA 07/14/2025 12:02 PM EDT [facility] Blood Structure of antecubital vein / Unknown Venipuncture / Unknown 07/09/2025 10:35 AM EDT 07/09/2025 10:50 AM EDT us My Charles MD LAB MICROBIOLOGY - GENE RAL ORDERABLES Final Result Performing Organization Address City/[facility] Co de Phone Number [facility] [address] [place] [address] * (ABNORMAL) POCT glucose meter (07/09/2025 10:04 [...] Comment 07/09/2025 10:05 AM EDT HEALTHCARE LAB Supervisor Decorating ID Jeana Bear 07/09/2025 10:05 AM EDT HEALTHCARE LAB Device ID [id number] 07/09/2025 10:05 AM EDT [facility] Specimen Type POC Capillary 07/09/2025 10:05 AM EDT [facility] Blood Capillary blood specimen / Unknown 07/09/2025 10:04 AM EDT 07/09/2025 10:05 AM EDT us Luanne Crawford MD LAB POINT OF CARE TEST DOCKED DEVICE UNSOLICITED RESULTS Final Result Performing Organization Address City/[facility] Co de Phone Number [facility] [address] [place] [address] * Multi Drug Resistance Test (07/09/2025 9:46 AM EDT) Culture No growth at day 1 07/10/2025 11:58 AM EDT [facility] Swab (Nares and Leann Rectal) Non-blood Collection / Unknown 07/09/2025 9:46 AM EDT 07/09/2025 10:09 AM EDT Narrative [facility] - 07/10/2025 11:58 AM EDT This test was developed and its performance characteristics determined by the [facility]. Although the media is FDA-approved, it is not FDA-approved for all specimen types submitted. The FDA has determined that such clearance or approval is not necessary. This test is used for surveillance purposes. It should not be regarded as investigational or for research. The [facility] is certified under the Clinical Laboratory Improvement Amendments of 1988 (CLIA-88) as qualified to perform high complexity clinical laboratory testing. us Luanne Crawford MD LAB MICROBIOLOGY - GENERAL ORDERABLES Final Result [facility] [address] [place] [address] * (ABNORMAL) Blood gas, arterial (07/09/2025 8:47 AM EDT) pH, Arterial 7.30(L) 7.35 - 7.45 LAB HEMATOLOGY METHOD 07/09/2025 8:55 AM EDT [facility] pCO2, Arterial 53(H) 35 - 48 mmHg LAB HEMATOLOGY METHOD 07/09/2025 8:55 AM EDT [facility] pO2, Arterial 173(H) 83 - 108 mmHg LAB HEMATOLOGY METHOD 07/09/2025 8:55 AM EDT [facility] SO2, Measured, Arterial 98 94 - 98 % LAB HEMATOLOGY METHOD 07/09/2025 8:55 AM EDT [facility] Base Excess, Arterial -0.8 -2.0 - 3.0 mmol/L LAB HEMATOLOGY METHOD 07/09/2025 8:55 AM EDT [facility] Bicarbonate, Calculated, Arterial 26 22 - 26 mmol/L LAB HEMATOLOGY METHOD 07/09/2025 8:55 AM EDT [facility] Hematocrit, Whole Blood 27.3(L) 34.0 - 45.0 % LAB HEMATOLOGY METHOD 07/09/2025 8:55 AM EDT [facility] Sodium, Whole Blood 140 136 - 145 mmol/L LAB HEMATOLOGY METHOD 07/09/2025 8:55 AM EDT [facility] Potassium, Whole Blood 2.9(L) 3.6 - 4.9 mmol/L LAB HEMATOLOGY METHOD 07/09/2025 8:55 AM EDT [facility] Chloride, Whole Blood 106 97 - 107 mmol/L LAB HEMATOLOGY METHOD 07/09/2025 8:55 AM EDT [facility] Glucose, Whole Blood 155(H) 74 - 99 mg/dL LAB HEMATOLOGY METHOD 07/09/2025 8:55 AM EDT [facility] Ionized Calcium, Whole Blood 5.0 4.6 - 5.1 mg/dL LAB HEMATOLOGY METHOD 07/09/2025 8:55 AM EDT [facility] Lactate, Arterial, Whole Blood 1.4 0.5 - 1.6 mmol/L LAB HEMATOLOGY METHOD 07/09/2025 8:55 AM EDT [facility] Blood Arterial blood specimen / Unknown Arterial Line / Unknown 07/09/2025 8:47 AM EDT 07/09/2025 8:54 AM EDT us Dorcas Hennessy MD LAB BLOOD ORDERABLES Final Resul t [facility] [address] [place] [address] * (ABNORMAL) POCT glucose meter (07/09/2025 8:01 [...] Comment 07/09/2025 8:03 AM EDT HEALTHCARE LAB Supervisor Decorating ID Jeana Bear 07/09/2025 8:03 AM EDT HEALTHCARE LAB Device ID [id number] 07/09/2025 8:03 AM EDT HEALTHCARE LAB Specimen Type POC Capillary 07/09/2025 8:03 AM EDT [facility] Blood Capillary blood specimen / Unknown 07/09/2025 8:01 AM EDT 07/09/2025 8:03 AM EDT us Luanne Crawford MD LAB POINT OF CARE TEST DOCKED DEVICE UNSOLICITED RESULTS Final Result [facility]ARE [facility] [address] [place] [address] * RI CRITICAL CARE, E/M 30-74 MINUTES (07/09/2025 7:15 [...] - 99 mg/dL 07/09/2025 6:20 AM EDT [facility] Comment:Accuracy of a glucos e result [...] for testing. Comment 07/09/2025 6:20 AM EDT [facility] Supervisor Decorating ID Cheyanne Briceño 07/09/2025 6:20 AM EDT [facility] Device ID [id number] 07/09/2025 6:20 AM EDT [facility] Specimen Type POC Arterial 07/09/2025 6:20 AM EDT [facility] Blood Arterial blood specimen / Unknown 07/09/2025 6:05 AM EDT 07/09/2025 6:20 AM EDT Luanne Crawford MD LAB POINT OF CARE TEST DOCKED DEVICE UNSOLICITED RESULTS Final Result Performing Organization Address City/[facility]/ZIP Co de Phone Number [facility] [address] [place] [address] * (ABNORMAL) Hemoglobin A1c (07/09/2025 4:57 AM EDT) Hemoglobin A1c 7.5(H) <5.7 % 07/09/2025 12:09 PM EDT [facility] Blood Arterial blood specimen / Unknown Venipuncture / Unknown 07/09/2025 4:57 AM EDT 07/09/2025 5:07 AM EDT Narrative [facility] - 07/09/2025 12:09 PM EDT HA1C Interpretive Data: Diagnosis of Diabetes: Diabetic > or = 6.5% Pre-diabetic 5.7 to 6.4% Non-diabetic < or = 5.6% Glycemic Targets for Type I and Type II Diabetics: Non- Adults <7.0% Adults <6.0% Children and Adolescents <7.5% Source: [place] [employer]. Standards of medical care in diabetes,2017. Diabetes Care.2017:40 (suppl 1):S1-S135. us Dorcas Hennessy MD LAB BLOOD ORDERABLES Final Resul t [facility] [address] [place] [address] * Phosphorus (07/09/2025 4:57 AM EDT) Phosphorus, Plasma 4.1 2.5 - 4.5 mg/dL 07/09/2025 5:35 AM EDT [facility] Blood Arterial blood specimen / Unknown Venipuncture / Unknown 07/09/2025 4:57 AM EDT 07/09/2025 5:06 AM EDT us Luanne Crawford MD LAB BLOOD ORDERABLES Final Result [facility] [address] [place] [address] * Magnesium, Plasma (07/09/2025 4:57 AM EDT) Magnesium, Plasma 2.2 1.9 - 2.4 mg/dL 07/09/2025 5:35 AM EDT [facility] Blood Arterial blood specimen / Unknown Venipuncture / Unknown 07/09/2025 4:57 AM EDT 07/09/2025 5:06 AM EDT us Luanne Crawford MD LAB BLOOD ORDERABLES Final Result Performing Organization Address [facility]/ZIP Co de Phone Number [facility] [address] [place] [address] * (ABNORMAL) Basic Metabolic Panel, Plasma (07/09/2025 4:57 AM EDT) Glucose, Plasma 235(H) 74 - 99 mg/dL 07/09/2025 5:35 AM EDT [facility] BUN, Plasma 30(H) 7 - 21 mg/dL 07/09/2025 5:35 AM EDT [facility] Creatinine, Plasma 1.58(H) 0.60 - 1.10 mg/dL 07/09/2025 5:35 AM EDT [facility] BUN/Creatinine Ratio 19 07/09/2025 5:35 AM EDT [facility] Sodium, Plasma 136 136 - 145 mmol/L 07/09/2025 5:35 AM EDT [facility] Potassium, Plasma 3.5(L) 3.6 - 4.9 mmol/L 07/09/2025 5:35 AM EDT [facility] Chloride, Plasma 101 97 - 107 mmol/L 07/09/2025 5:35 AM EDT [facility] CO2, Plasma 23 22 - 29 mmol/L 07/09/2025 5:35 AM EDT [facility] Anion Gap 12 6 - 16 mmol/L 07/09/2025 5:35 AM EDT [facility] Total Calcium, Plasma 9.2 8.9 - 10.2 mg/dL 07/09/2025 5:35 AM EDT [facility] eGFRcr 40.0 mL/min/1.7 3m*2 07/09/2025 5:35 AM EDT [facility] Comment:Reported eGFRcr in m L/min/1.73m2 is based the CKD-EPI 2020 equation that does not use a race coefficient. Blood Arterial blood specimen / Unknown Venipuncture / Unknown 07/09/2025 4:57 AM EDT 07/09/2025 5:06 AM EDT us Luanne Crawford MD LAB BLOOD ORDERABLES Final Result [facility] [address] [place] [address] * (ABNORMAL) CBC W/O Differential (07/09/2025 4:57 AM EDT) WBC Count 32.25(H) 3.70 - 10.30 10*3/uL LAB HEMATOLOGY METHOD 07/09/2025 5:15 AM EDT [facility] RBC Count 3.89(L) 3.90 - 5.20 10*6/uL LAB HEMATOLOGY METHOD 07/09/2025 5:15 AM EDT [facility] HGB 11.0(L) 11.2 - 15.7 g/dL LAB HEMATOLOGY METHOD 07/09/2025 5:15 AM EDT [facility] HCT 33.4(L) 34.0 - 45.0 % LAB HEMATOLOGY METHOD 07/09/2025 5:15 AM EDT [facility] Platelet Count 358 155 - 369 10*3/uL LAB HEMATOLOGY METHOD 07/09/2025 5:15 AM EDT [facility] MCV 86 79 - 98 fL LAB HEMATOLOGY METHOD 07/09/2025 5:15 AM EDT [facility] MCH 28.3 26.0 - 32.0 pg LAB HEMATOLOGY METHOD 07/09/2025 5:15 AM EDT [facility] MCHC 32.9 30.7 - 35.5 g/dL LAB HEMATOLOGY METHOD 07/09/2025 5:15 AM EDT [facility] RDW 17.4(H) 11.5 - 14.5 % LAB HEMATOLOGY METHOD 07/09/2025 5:15 AM EDT [facility] MPV 10.0 8.8 - 12.5 fL LAB HEMATOLOGY METHOD 07/09/2025 5:15 AM EDT [facility] nRBC 0.0 <=0.0 per 100 WBCs LAB HEMATOLOGY METHOD 07/09/2025 5:15 AM EDT [facility] Blood Arterial blood specimen / Unknown Venipuncture / Unknown 07/09/2025 4:57 AM EDT 07/09/2025 5:07 AM EDT us Luanne Crawford MD LAB BLOOD ORDERABLES Final Result Performing Organization Address City/State/[facility] Co de Phone Number [facility] [address] [place] [address] * (ABNORMAL) POCT glucose meter (07/09/2025 4:03 AM EDT) Pathologist [facility] POCT Glucose 232(H) 74 - 99 mg/dL [...] Comment 07/09/2025 4:05 AM EDT [facility]ALTH[facility]ARE [facility] Supervisor Decorating ID Cheyanne Briceño 07/09/2025 4:05 AM EDT [facility]ALTH[facility]ARE LAB Device ID [id number] 07/09/2025 4:05 AM EDT [facility]ALTH[facility]ARE [facility] Specimen Type POC Arterial 07/09/2025 4:05 AM EDT [facility] Blood Arterial blood specimen / Unknown 07/09/2025 4:03 AM EDT 07/09/2025 4:05 AM EDT us Luanne Crawford MD LAB POINT OF CARE TEST DOCKED DEVICE UNSOLICITED RESULTS Final Result [facility] [address] [place] [address] * XR Chest 1 View (07/09/2025 3:42 [...] glucose meter (07/09/2025 2:15 AM EDT) Pathologist [facility] POCT Glucose 272(H) 74 - 99 [...] Comment 07/09/2025 2:17 AM EDT HEALTHCARE LAB Supervisor Decorating ID Cheyanne Briceño 07/09/2025 2:17 AM EDT [facility] Device ID [id number] 07/09/2025 2:17 AM EDT [facility] Specimen Type POC Arterial 07/09/2025 2:17 AM EDT [facility] Blood Arterial blood specimen / Unknown 07/09/2025 2:15 AM EDT 07/09/2025 2:17 AM EDT us Luanne Crawford MD LAB POINT OF CARE TEST DOCKED DEVICE UNSOLICITED RESULTS Final Result Performing Organization Address City/State/[facility] Co de Phone Number HEALTHCARE LAB [address] [place] [address] * (ABNORMAL) Blood gas panel, arterial (07/09/2025 2:11 AM EDT) [facility] pH, Arterial 7.25(LL) 7.35 - 7.45 LAB HEMATOLOGY METHOD 07/09/2025 2:23 AM EDT [facility] pCO2, Arterial 56(H) 35 - 48 mmHg LAB HEMATOLOGY METHOD 07/09/2025 2:23 AM EDT [facility] pO2, Arterial 67(L) 83 - 108 mmHg LAB HEMATOLOGY METHOD 07/09/2025 2:23 AM EDT [facility] SO2, Measured, Arterial 91(L) 94 - 98 % LAB HEMATOLOGY METHOD 07/09/2025 2:23 AM EDT [facility] Base Excess, Arterial -2.7(L) -2.0 - 3.0 mmol/L LAB HEMATOLOGY METHOD 07/09/2025 2:23 AM EDT [facility] Bicarbonate, Calculated, Arterial 25 22 - 26 mmol/L LAB HEMATOLOGY METHOD 07/09/2025 2:23 AM EDT [facility] Hematocrit, Whole Blood 31.5(L) 34.0 - 45.0 % LAB HEMATOLOGY METHOD 07/09/2025 2:23 AM EDT [facility] Sodium, Whole Blood 135(L) 136 - 145 mmol/L LAB HEMATOLOGY METHOD 07/09/2025 2:23 AM EDT [facility] Potassium, Whole Blood 3.5(L) 3.6 - 4.9 mmol/L LAB HEMATOLOGY METHOD 07/09/2025 2:23 AM EDT [facility] Chloride, Whole Blood 103 97 - 107 mmol/L LAB HEMATOLOGY METHOD 07/09/2025 2:23 AM EDT [facility] Glucose, Whole Blood 279(H) 74 - 99 mg/dL LAB HEMATOLOGY METHOD 07/09/2025 2:23 AM EDT [facility] Ionized Calcium, Whole Blood 4.9 4.6 - 5.1 mg/dL LAB HEMATOLOGY METHOD 07/09/2025 2:23 AM EDT [facility] Lactate, Arterial, Whole Blood 1.2 0.5 - 1.6 mmol/L LAB HEMATOLOGY METHOD 07/09/2025 2:23 AM EDT [facility] Blood Arterial blood specimen / Unknown Arterial Puncture / Unknown 07/09/2025 2:11 AM EDT 07/09/2025 2:21 AM EDT us Luanne Crawford MD LAB BLOOD ORDERABLES Final Result [facility] [address] [place] [address] * (ABNORMAL) POCT glucose meter (07/09/2025 1:22 AM EDT) POCT Glucose 271(H) 74 - 99 mg/dL 07/09/2025 1:24 AM EDT [facility] Comment:Accuracy of a [...] 07/09/2025 1:24 AM EDT [facility] Supervisor Decorating ID Cheyanne Briceño 07/09/2025 1:24 AM EDT [facility] Device ID [id number] 07/09/2025 1:24 AM EDT [facility] Specimen Type POC Arterial 07/09/2025 1:24 AM EDT [facility] Blood Arterial blood specimen / Unknown 07/09/2025 1:22 AM EDT 07/09/2025 1:24 AM EDT us Luanne Crawford MD LAB POINT OF CARE TEST DOCKED DEVICE UNSOLICITED RESULTS Final Result Performing Organization Address [facility] Co de Phone Number HEALTHCARE LAB [address] [place] [address] * (ABNORMAL) POCT glucose meter (07/09/2025 12:06 [...] Comment 07/09/2025 12:08 AM EDT [facility]ALTH[facility]ARE [facility] Supervisor Decorating ID Cheyanne Briceño 07/09/2025 12:08 AM EDT [facility]ARE [facility] Device ID [id number] 07/09/2025 12:08 AM EDT [facility] Specimen Type POC Arterial 07/09/2025 12:08 AM EDT [facility] Blood Arterial blood specimen / Unknown 07/09/2025 12:06 AM EDT 07/09/2025 12:08 AM EDT us Luanne Crawford MD LAB POINT OF CARE TEST DOCKED DEVICE UNSOLICITED RESULTS Final Result Performing Organization Address [facility] Co de Phone Number [facility]ALTHCARE [facility] [address] [place] [address] * APTT (07/08/2025 11:53 PM EDT) aPTT 25 25 - 35 sec LAB COAGULATION METHOD 07/09/2025 12:32 AM EDT [facility] Blood Venous blood specimen / Unknown Venipuncture / Unknown 07/08/2025 11:53 PM EDT 07/08/2025 11:59 PM EDT Luanne Crawford MD LAB BLOOD ORDERABLES Final Result Performing Organization Address [facility]/ZIP Co de Phone Number [facility] [address] [place] [address] * (ABNORMAL) Protime-INR (07/08/2025 11:53 PM EDT) Prothrombin Time 15.2(H) 12.0 - 14.3 sec LAB COAGULATION METHOD 07/09/2025 12:32 AM EDT [facility] INR 1.2(H) 0.9 - 1.1 LAB COAGULATION METHOD 07/09/2025 12:32 AM EDT [facility] Blood Venous blood specimen / Unknown Venipuncture / Unknown 07/08/2025 11:53 PM EDT 07/08/2025 11:59 PM EDT Narrative [facility] - 07/09/2025 12:32 AM EDT OPTIMAL INR RANGES FOR PATIENT ON ORAL ANTICOAGULANT THERAPY Prevention of venous thromboembolism INR 2.0 to 3.0 In patients with heart disease: Atrial fibrillation INR 2.0 to 3.0 Valvular heart disease INR 2.0 to 3.0 Tissue heart valves INR 2.0 to 3.0 Mechanical prosthetic valves INR 2.5 to 3.5 Prevention of recurrent AR INR 2.5 to 3.5 us Luanne Crawford MD LAB BLOOD ORDERABLES Final Result [facility] [address] [place] [id number] * Phosphorus, Plasma (07/08/2025 11:52 PM EDT) Phosphorus, Plasma 3.6 2.5 - 4.5 mg/dL 07/09/2025 12:27 AM EDT [facility] Blood Venous blood specimen / Unknown Venipuncture / Unknown 07/08/2025 11:52 PM EDT 07/08/2025 11:59 PM EDT Luanne Crawford MD LAB BLOOD ORDERABLES Final Result Performing Organization Address City/[facility]/ZIP Co de Phone Number [facility] [address] [place] [address] * (ABNORMAL) Magnesium, Plasma (07/08/2025 11:52 PM EDT) Magnesium, Plasma 1.8(L) 1.9 - 2.4 mg/dL 07/09/2025 12:27 AM EDT [facility] Blood Venous blood specimen / Unknown Venipuncture / Unknown 07/08/2025 11:52 PM EDT 07/08/2025 11:59 PM EDT Luanne Crawford MD LAB BLOOD ORDERABLES Final Result Performing Organization Address City/[facility]/ZIP Co de Phone Number [facility] [address] [place] [address] * (ABNORMAL) Basic Metabolic Panel, Plasma (07/08/2025 11:52 PM EDT) Glucose, Plasma 314(H) 74 - 99 mg/dL 07/09/2025 12:27 AM EDT [facility] BUN, Plasma 32(H) 7 - 21 mg/dL 07/09/2025 12:27 AM EDT [facility] Creatinine, Plasma 1.80(H) 0.60 - 1.10 mg/dL 07/09/2025 12:27 AM EDT [facility] BUN/Creatinine Ratio 18 07/09/2025 12:27 AM EDT [facility] Sodium, Plasma 136 136 - 145 mmol/L 07/09/2025 12:27 AM EDT [facility] Potassium, Plasma 3.6 3.6 - 4.9 mmol/L 07/09/2025 12:27 AM EDT [facility] Chloride, Plasma 100 97 - 107 mmol/L 07/09/2025 12:27 AM EDT [facility] CO2, Plasma 23 22 - 29 mmol/L 07/09/2025 12:27 AM EDT [facility] Anion Gap 13 6 - 16 mmol/L 07/09/2025 12:27 AM EDT [facility] Total Calcium, Plasma 8.9 8.9 - 10.2 mg/dL 07/09/2025 12:27 AM EDT [facility] eGFRcr 34.2 mL/min/1.7 3m*2 07/09/2025 12:27 AM EDT [facility] Comment:Reported eGFRcr in m L/min/1.73m2 is based the CKD-EPI 2020 equation that does not use a race coefficient. Blood Venous blood specimen / Unknown Venipuncture / Unknown 07/08/2025 11:52 PM EDT 07/08/2025 11:59 PM EDT us Luanne Crawford MD LAB BLOOD ORDERABLES Final Result [facility] [address] [place] [address] * (ABNORMAL) CBC W/O Differential (07/08/2025 11:52 PM EDT) WBC Count 22.50(H) 3.70 - 10.30 10*3/uL LAB HEMATOLOGY METHOD 07/09/2025 12:16 AM EDT [facility] RBC Count 3.60(L) 3.90 - 5.20 10*6/uL LAB HEMATOLOGY METHOD 07/09/2025 12:16 AM EDT [facility] HGB 10.0(L) 11.2 - 15.7 g/dL LAB HEMATOLOGY METHOD 07/09/2025 12:16 AM EDT [facility] HCT 30.8(L) 34.0 - 45.0 % LAB HEMATOLOGY METHOD 07/09/2025 12:16 AM EDT [facility] Platelet Count 273 155 - 369 10*3/uL LAB HEMATOLOGY METHOD 07/09/2025 12:16 AM EDT [facility] MCV 86 79 - 98 fL LAB HEMATOLOGY METHOD 07/09/2025 12:16 AM EDT [facility] MCH 27.8 26.0 - 32.0 pg LAB HEMATOLOGY METHOD 07/09/2025 12:16 AM EDT [facility] MCHC 32.5 30.7 - 35.5 g/dL LAB HEMATOLOGY METHOD 07/09/2025 12:16 AM EDT [facility] RDW 16.9(H) 11.5 - 14.5 % LAB HEMATOLOGY METHOD 07/09/2025 12:16 AM EDT [facility] MPV 10.3 8.8 - 12.5 fL LAB HEMATOLOGY METHOD 07/09/2025 12:16 AM EDT [facility] nRBC 0.0 <=0.0 per 100 WBCs LAB HEMATOLOGY METHOD 07/09/2025 12:16 AM EDT [facility] Blood Venous blood specimen / Unknown Venipuncture / Unknown 07/08/2025 11:52 PM EDT 07/08/2025 11:59 PM EDT us Luanne Crawford MD LAB BLOOD ORDERABLES Final Result [facility] [address] [place] [address] * Richie auris Surveillance by PCR (07/08/2025 11:50 PM EDT) Richie auris PCR Result Not Detected Not Detected 07/09/2025 11:26 AM EDT [facility] Swab (Axilla and Groin) Non-blood Collection / Unknown 07/08/2025 11:50 PM EDT 07/09/2025 12:17 AM EDT Narrative [facility] - 07/09/2025 11:26 AM EDT This PCR assay was developed and its performance characteristics determined by [facility] as appropriate for clinical purposes. This assay has not been cleared or approved by the FDA, but is performed in a CLIA regulated laboratory that is qualified to perform high-complexity testing. us Luanne Crawford MD LAB MICROBIOLOGY - GENERAL ORDERABLES Final Result [facility] [address] [place] [address] * Multi Drug Resistance Test (07/08/2025 11:50 PM EDT) Pathologist [facility] Culture No growth at day 1 07/10/2025 5:45 AM EDT [facility] Swab (Nares and Leann Rectal) Non-blood Collection / Unknown 07/08/2025 11:50 PM EDT 07/09/2025 12:17 AM EDT Narrative [facility] - 07/10/2025 5:45 AM EDT This test was developed and its performance characteristics determined by the [facility]. Although the media is FDA-approved, it is not FDA-approved for all specimen types submitted. The FDA has determined that such clearance or approval is not necessary. This test is used for surveillance purposes. It should not be regarded as investigational or for research. The [facility] is certified under the Clinical Laboratory Improvement Amendments of 1988 (CLIA-88) as qualified to perform high complexity clinical laboratory testing. us Luanne Crawford MD LAB MICROBIOLOGY - GENERAL ORDERABLES Final Result [facility] [address] [place] [address] * (ABNORMAL) Blood gas, arterial (07/08/2025 11:50 PM EDT) pH, Arterial 7.27(L) 7.35 - 7.45 LAB HEMATOLOGY METHOD 07/09/2025 12:00 AM EDT [facility] pCO2, Arterial 53(H) 35 - 48 mmHg LAB HEMATOLOGY METHOD 07/09/2025 12:00 AM EDT [facility] pO2, Arterial 114(H) 83 - 108 mmHg LAB HEMATOLOGY METHOD 07/09/2025 12:00 AM EDT [facility] SO2, Measured, Arterial 99(H) 94 - 98 % LAB HEMATOLOGY METHOD 07/09/2025 12:00 AM EDT [facility] Base Excess, Arterial -3.1(L) -2.0 - 3.0 mmol/L LAB HEMATOLOGY METHOD 07/09/2025 12:00 AM EDT [facility] Bicarbonate, Calculated, Arterial 24 22 - 26 mmol/L LAB HEMATOLOGY METHOD 07/09/2025 12:00 AM EDT [facility] Hematocrit, Whole Blood 31.0(L) 34.0 - 45.0 % LAB HEMATOLOGY METHOD 07/09/2025 12:00 AM EDT [facility] Sodium, Whole Blood 134(L) 136 - 145 mmol/L LAB HEMATOLOGY METHOD 07/09/2025 12:00 AM EDT [facility] Potassium, Whole Blood 3.5(L) 3.6 - 4.9 mmol/L LAB HEMATOLOGY METHOD 07/09/2025 12:00 AM EDT [facility] Chloride, Whole Blood 101 97 - 107 mmol/L LAB HEMATOLOGY METHOD 07/09/2025 12:00 AM EDT [facility] Glucose, Whole Blood 315(H) 74 - 99 mg/dL LAB HEMATOLOGY METHOD 07/09/2025 12:00 AM EDT [facility] Ionized Calcium, Whole Blood 5.1 4.6 - 5.1 mg/dL LAB HEMATOLOGY METHOD 07/09/2025 12:00 AM EDT [facility] Lactate, Arterial, Whole Blood 1.7(H) 0.5 - 1.6 mmol/L LAB HEMATOLOGY METHOD 07/09/2025 12:00 AM EDT [facility] Blood Arterial blood specimen / Unknown Arterial Puncture / Unknown 07/08/2025 11:50 PM EDT 07/08/2025 11:59 PM EDT Richard Betts CRNA LAB BLOOD ORDERABLES Sarah l Result [facility] [address] [place] [address] * (ABNORMAL) POCT glucose meter (07/08/2025 11:49 PM EDT) POCT Glucose 316(H) 74 - 99 mg/dL 07/08/2025 11:50 PM EDT [facility] Comment:Accuracy of a [...] Comment 07/08/2025 11:50 PM EDT [facility]ALTH[facility]ARE [facility] Supervisor Decorating ID Mary Cotto 07/08/2025 11:50 PM EDT [facility]ARE LAB Device ID [id number] 07/08/2025 11:50 PM EDT [facility] Specimen Type POC Arterial 07/08/2025 11:50 PM EDT [facility] Blood Arterial blood specimen / Unknown 07/08/2025 11:49 PM EDT 07/08/2025 11:50 PM EDT us Luanne Crawford MD LAB POINT OF CARE TEST DOCKED DEVICE UNSOLICITED RESULTS Final Result [facility] [address] [place] [address] * (ABNORMAL) Tissue Culture and Gram Stain (07/08/2025 10:48 PM EDT) Culture Light Growth 07/13/2025 1:13 PM EDT [facility] Culture 1+ Schaalia turicensis (formerly known as Actinomyces turicensis)(A) 07/13/2025 1:13 PM EDT [facility] Comment: The organism value for this result has been updated. These results have been appended to the previously preliminary verified report. This is a corrected result. Previous organism was Gram positive anthony on 07/11/2025 at 1052 EDT. Culture 1+ Staphylococcus hominis(A) 07/13/2025 1:13 PM EDT [facility] Comment: This isolate has been identified using the FDA Approved [employer] System The organism value for this result has been updated. These results have been appended to the previously preliminary verified report. Gram Stain Result Few Polymorphonuclear leukocytes(A) 07/13/2025 1:13 PM EDT [facility] Gram Stain Result Numerous Gram negative rods(A) 07/13/2025 1:13 PM EDT [facility] Gram Stain Result Few Gram positive cocci in pairs(A) 07/13/2025 1:13 PM EDT [facility] Tissue Topography unknown / Unknown 07/08/2025 10:48 PM EDT 07/09/2025 12:14 AM EDT Comment:Pre-op diagnosis: Necrotizing fasciitis (CMS/HCC) [M72.6] Luanne Crawford MD LAB MICROBIOLOGY - GENERAL ORDERABLES Final Result [facility] [address] [place] [address] * Transfuse fresh frozen plasma (07/08/2025 10:35 PM EDT) us Richard Gonzalez Obinnangkangg RAILROAD TRACK REPAIR SUPERVISOR BLOOD TRANSFUSION ORDERAB LES Final Result * Transfuse RBC (07/08/2025 10:29 PM EDT) Richard N Yongbang RAILROAD TRACK REPAIR SUPERVISOR BLOOD TRANSFUSION ORDERAB LES Final Result * (ABNORMAL) Blood gas panel, arterial (07/08/2025 10:08 PM EDT) pH, Arterial 7.28(L) 7.35 - 7.45 LAB HEMATOLOGY METHOD 07/08/2025 10:15 PM EDT [facility] pCO2, Arterial 50(H) 35 - 48 mmHg LAB HEMATOLOGY METHOD 07/08/2025 10:15 PM EDT [facility] pO2, Arterial 121(H) 83 - 108 mmHg LAB HEMATOLOGY METHOD 07/08/2025 10:15 PM EDT [facility] SO2, Measured, Arterial 99(H) 94 - 98 % LAB HEMATOLOGY METHOD 07/08/2025 10:15 PM EDT [facility] Base Excess, Arterial -3.6(L) -2.0 - 3.0 mmol/L LAB HEMATOLOGY METHOD 07/08/2025 10:15 PM EDT [facility] Bicarbonate, Calculated, Arterial 23 22 - 26 mmol/L LAB HEMATOLOGY METHOD 07/08/2025 10:15 PM EDT [facility] Hematocrit, Whole Blood 29.9(L) 34.0 - 45.0 % LAB HEMATOLOGY METHOD 07/08/2025 10:15 PM EDT [facility] Sodium, Whole Blood 133(L) 136 - 145 mmol/L LAB HEMATOLOGY METHOD 07/08/2025 10:15 PM EDT [facility] Potassium, Whole Blood 3.5(L) 3.6 - 4.9 mmol/L LAB HEMATOLOGY METHOD 07/08/2025 10:15 PM EDT [facility] Chloride, Whole Blood 101 97 - 107 mmol/L LAB HEMATOLOGY METHOD 07/08/2025 10:15 PM EDT [facility] Glucose, Whole Blood 351(H) 74 - 99 mg/dL LAB HEMATOLOGY METHOD 07/08/2025 10:15 PM EDT [facility] Ionized Calcium, Whole Blood 4.5(L) 4.6 - 5.1 mg/dL LAB HEMATOLOGY METHOD 07/08/2025 10:15 PM EDT [facility] Lactate, Arterial, Whole Blood 2.1(H) 0.5 - 1.6 mmol/L LAB HEMATOLOGY METHOD 07/08/2025 10:15 PM EDT [facility] Blood Arterial blood specimen / Unknown 07/08/2025 10:08 PM EDT 07/08/2025 10:14 PM EDT Comment:Pre-op diagnosis: Necrotizing fasciitis (CMS/HCC) [M72.6] us Luanne Crawford MD LAB BLOOD ORDERABLES Final Result [facility] [address] [place] [address] * Surgical Pathology Exam (07/08/2025 10:07 PM EDT) Case Report Surgical Pathology Case: [id number] Authorizing Provider: Luanne Crawford MD Collected: 07/08/20257 Ordering Location: [facility] OPERATING RO[facility] Received: 07/09/2025 0740 Pathologist: Boaz Fernandez MD Specimens: A) - Other (specify site), saphenous vein B) - Other (specify site), right leg 07/10/2025 3:45 PM EDT [facility] Final Diagnosis A. SAPHENOUS VEIN SEGMENT, REMOVAL: - SCLEROTIC VEIN WITH ADVENTITIAL INFLAMMATION. B. RIGHT LEG TISSUE DEBRIDEMENT: - ACUTE NECROTIZING FASCIITIS OF SKIN AND SOFT TISSUE. 07/10/2025 3:45 PM EDT [facility] at 1545 EDT Clinical Information Necrotizing fasciitis; post recent boil self popped wound. 50 y.o. female with PMH of DM, hidradenitis supparativa, current smoker (1.5 ppd), UTI, depression, anxiety, asthma, HLD, Celiac disease, 07/10/2025 3:45 PM EDT [facility] Gross Description A. SAPHENOUS VEIN Specimen is received fresh and placed in formalin labeled saphenous vein. Received is a segment of vessel that measures 8.5 cm in length and up to 0.7 cm in diameter. Specimen is sectioned to reveal a pinpoint lumen with dried blood. Dog Breeder sections are taken and submitted in cassette A1. Cold Time: 8h 56m Abhishek Baptiste MD B. RIGHT LEG Specimen is received fresh labeled right leg. Received are numerous fragments of skin and underlying soft tissue that measure in aggregate 25.0 x 25.0 x 7.5 cm. Scattered areas of skin and soft tissue notable for being green-black, foul-smelling and extensively necrotic. Dog Breeder sections are taken and submitted in cassettes B1-B2. Abhishek Baptiste MD 07/10/2025 3:45 PM EDT [facility] Note: A resident was involved in the service. I attest I examined the relevant preparations for the specimens and confirmed the diagnosis or interpretation. 07/10/2025 3:45 PM EDT [facility] Tissue Topography unknown / Unknown 07/08/2025 10:07 PM EDT 07/09/2025 7:40 AM EDT Comment:Pre-op diagnosis: Necrotizing fasciitis (CMS/HCC) [M72.6] Tissue specimen (specimen) Topography unknown / Unknown 07/08/2025 10:49 PM EDT 07/09/2025 7:40 AM EDT Comment:Pre-op diagnosis: Necrotizing fasciitis (CMS/HCC) [M72.6] us Luanne Crawford MD LAB PATHOLOGY ORDERABLES F inal Result [facility] [address] [place] [address] * Transfuse fresh frozen plasma (07/08/2025 10:04 PM EDT) Richard Yeboahngbang RAILROAD TRACK REPAIR SUPERVISOR BLOOD TRANSFUSION ORDERAB LES Final Result * Transfuse fresh frozen plasma: 1 Units (07/08/2025 10:04 PM EDT) Richard Yeboahngbang RAILROAD TRACK REPAIR SUPERVISOR BLOOD TRANSFUSION ORDERAB LES Final Result * Transfuse RBC (07/08/2025 9:41 PM EDT) Richard N Obinnangkangg RAILROAD TRACK REPAIR SUPERVISOR BLOOD TRANSFUSION ORDERAB LES Final Result * Transfuse RBC: 1 Units (07/08/2025 9:41 PM EDT) Richard Yeboahngbang RAILROAD TRACK REPAIR SUPERVISOR BLOOD TRANSFUSION ORDERAB LES Final Result * Prepare Fresh Frozen Plasma: 2 Units (07/08/2025 9:24 PM EDT) Product Code L6227T47 CH BLOO D BANK Dispense Status Transfused BLOOD BANK Blood Expiration Date [id number] BLOOD BANK Unit Number [id number] CH B LOOD BANK Product Blood Type 5100 BLOOD BANK Blood Type O+ CH BLOOD BANK Product Code [id number] CH BLOO D BANK Dispense Status Transfused BLOOD BANK Blood Expiration Date [id number] BLOOD BANK Unit Number [id number] CH B LOOD BANK Product Blood Type 5100 BLOOD BANK Blood Type O+ CH BLOOD BANK Blood Venous blood specimen / Unknown Richard Betts RAILROAD TRACK REPAIR SUPERVISOR BLOOD BANK PRODUCT ORDERA BLES Final Result BLOOD BANK [address] [place] [address], * Prepare Leukocyte Reduced RBC: 2 Units (07/08/2025 9:23 PM EDT) Product Code N0360S69 CH BLOO D BANK Dispense Status Transfused BLOOD BANK Blood Expiration Date [id number] BLOOD BANK Unit Number [id number] CH B LOOD BANK Product Blood Type 5100 BLOOD BANK Blood Type O+ BLOOD BANK Crossmatch Compatible BLOOD BANK Product Code [id number] BLOO D BANK Dispense Status Transfused BLOOD BANK Blood Expiration Date [id number] BLOOD BANK Unit Number [id number] B LOOD BANK Product Blood Type 5100 BLOOD BANK Blood Type O+ BLOOD BANK Crossmatch Compatible BLOOD BANK Other us Richard Yeboahinez RAILROAD TRACK REPAIR SUPERVISOR BLOOD BANK PRODUCT ORDERA BLES Final Result BLOOD BANK [address] [place] [address], * (ABNORMAL) Abscess Culture and Gram Stain (07/08/2025 9:06 PM EDT) Culture Light Growth 07/13/2025 1:13 PM EDT [facility] Culture 1+ Mixed skin silvestre(A) 07/13/2025 1:13 PM EDT [facility] Comment: The organism value for [...] as Actinomyces turicensis)(A) 07/13/2025 1:13 PM EDT [facility] Comment: This result was determined by [employer]DI tof Mass spectrometry. This assay was developed and its performance characteristics determined by [facility] as appropriate for clinical purposes. [...] Gram positive cocci(A) 07/13/2025 1:13 PM EDT [facility] Gram Stain Result Few Gram variable rods(A) 07/13/2025 1:13 PM EDT [facility] Gram Stain Result Moderate Gram positive rods(A) 07/13/2025 1:13 PM EDT [facility] Gram Stain Result Numerous Gram negative rods(A) 07/13/2025 1:13 PM EDT [facility] Gram Stain Result Numerous Gram negative coccobacilli(A) 07/13/2025 1:13 PM EDT [facility] Gram Stain Result Moderate Polymorphonuclear leukocytes(A) 07/13/2025 1:13 PM EDT [facility] Swab Topography unknown / Unknown 07/08/2025 9:06 PM EDT 07/08/2025 9:15 PM EDT Comment:Pre-op diagnosis: Necrotizing fasciitis (CMS/HCC) [M72.6] us Luanne Crawford MD LAB MICROBIOLOGY - GENERAL ORDERABLES Final Result [facility] [address] [place] [address] * (ABNORMAL) POCT arterial blood gas gem (07/08/2025 8:51 PM EDT) pH, Arterial 7.28(L) 7.35 - 7.45 07/08/2025 8:53 PM EDT [facility] pCO2, Arterial 53(H) 35 - 48 mm Hg 07/08/2025 8:53 PM EDT [facility] pO2, Arterial 152(H) 83 - 108 mm Hg 07/08/2025 8:53 PM EDT [facility] SO2, Arterial 99(H) 94 - 98 % 07/08/2025 8:53 PM EDT [facility] Base Excess, Arterial -2.3(L) -2 - 3 mmol/L 07/08/2025 8:53 PM EDT [facility] HCO3, Arterial 24.9 22 - 26 mmol/L 07/08/2025 8:53 PM EDT [facility] Total Hemoglobin, Arterial, Whole Blood 10.9(L) 11.2 - 15.7 g/dL 07/08/2025 8:53 PM EDT [facility] Hematocrit, Arterial 33.0(L) 34.0 - 45.0 % 07/08/2025 8:53 PM EDT [facility] Sodium, Arterial 131(L) 136 - 145 mmol/L 07/08/2025 8:53 PM EDT [facility] Potassium, Arterial 3.8 3.6 - 4.9 mmol/L 07/08/2025 8:53 PM EDT [facility] Chloride, Whole Blood 98 97 - 107 mmol/L 07/08/2025 8:53 PM EDT [facility] Glucose, Arterial 418(H) 74 - 99 mg/dL 07/08/2025 8:53 PM EDT [facility] Ionized Calcium, Arterial 4.9 4.6 - 5.1 mg/dL 07/08/2025 8:53 PM EDT [facility] Lactate, Arterial 1.6 0.5 - 1.6 mmol/L 07/08/2025 8:53 PM EDT [facility] Body Temperature 37.0 Celsius 07/08/2025 8:53 PM EDT [facility] pH, Temp Corrected, Arterial 7.28(L) 7.35 - 7.45 07/08/2025 8:53 PM EDT [facility] pCO2, Temp Corrected, Arterial 53(H) 35 - 48 mm Hg 07/08/2025 8:53 PM EDT [facility] pO2, Temp Corrected, Arterial 152(H) 83 - 108 mm Hg 07/08/2025 8:53 PM EDT [facility] Supervisor Decorating ID Yadi Goel 07/08/2025 8:53 PM EDT [facility] Blood, Arterial Whole blood specimen / Unknown 07/08/2025 8:51 PM EDT 07/08/2025 8:53 PM EDT us Luanne Crawford MD LAB POINT OF CARE TEST DOCKED DEVICE UNSOLICITED RESULTS Final Result [facility] [address] [place] [address] * ED HIV 1/2 Antibody/Antigen Screen w/Reflex to HIV 1/2 Differentiation (07/08/2025 6:14 PM EDT) [facility] HIV 1 & 2 Antibody/Antigen Screen Non Reactive Non Reactive 07/08/2025 7:12 PM EDT [facility] Comment:Screening for HIV 1 & 2 antibodies, and P24 antigen is NONREACTIVE. No confirmatory testing is required. Blood Venous blood specimen / Unknown Venipuncture / Unknown 07/08/2025 6:14 PM EDT 07/08/2025 6:30 PM EDT My Charles MD LAB BLOOD ORDERABLES Fi nal Result Performing Organization Address [facility] Co de Phone Number [facility] [address] [place] [address] * Hepatitis C Antibody - ED (07/08/2025 6:14 PM EDT) [facility] Hepatitis C Antibody Negative Negative 07/08/2025 7:12 PM EDT [facility] Blood Venous blood specimen / Unknown Venipuncture / Unknown 07/08/2025 6:14 PM EDT 07/08/2025 6:30 PM EDT My Charles MD LAB BLOOD ORDERABLES Fi nal Result Performing Organization Address [facility] Co al Phone Number [facility] [address] [place] [address] * (ABNORMAL) C-Reactive protein (07/08/2025 6:14 PM EDT) [facility] CRP, Plasma 462.2(H) <=8.0 mg/L 07/08/2025 7:18 PM EDT [facility] Blood Venous blood specimen / Unknown Venipuncture / Unknown 07/08/2025 6:14 PM EDT 07/08/2025 6:23 PM EDT Narrative [facility] - 07/08/2025 7:18 PM EDT This CRP test is appropriate for assessment of infection, systemic inflammation and/or tissue injury. To assess cardiovascular disease risk order high sensitivity CRP (CRPH). My Charles MD LAB BLOOD ORDERABLES Fi nal Result Performing Organization Address [facility] [facility] Co de Phone Number [facility] [address] [place] [address] * (ABNORMAL) Lactic acid, venous (07/08/2025 6:14 PM EDT) [facility] Lactate, Venous, Whole Blood 2.6(H) 0.5 - 2.2 mmol/L LAB HEMATOLOGY METHOD 07/08/2025 6:29 PM EDT [facility] Blood Venous blood specimen / Unknown Venipuncture / Unknown 07/08/2025 6:14 PM EDT 07/08/2025 6:23 PM EDT My Charles MD LAB BLOOD ORDERABLES Fi nal Result Performing Organization Address City/[facility]/ZIP Co de Phone Number [facility] [address] [place] [address] * Type and screen (07/08/2025 6:14 PM [...] Final Result Performing Organization Address [facility] Phone Number BLOOD BANK [address] * (ABNORMAL) PT-INR (07/08/2025 6:14 PM EDT) Prothrombin Time 15.3(H) 12.0 - 14.3 sec 07/08/2025 6:56 PM EDT [facility] INR 1.2(H) 0.9 - 1.1 07/08/2025 6:56 PM EDT [facility] Blood Venous blood specimen / Unknown Venipuncture / Unknown 07/08/2025 6:14 PM EDT 07/08/2025 6:23 PM EDT Narrative [facility] - 07/08/2025 6:56 PM EDT OPTIMAL INR RANGES FOR PATIENT ON ORAL ANTICOAGULANT THERAPY Prevention of venous thromboembolism INR 2.0 to 3.0 In patients with heart disease: Atrial fibrillation INR 2.0 to 3.0 Valvular heart disease INR 2.0 to 3.0 Tissue heart valves INR 2.0 to 3.0 Mechanical prosthetic valves INR 2.5 to 3.5 Prevention of recurrent AR INR 2.5 to 3.5 us My Charles MD LAB BLOOD ORDERABLES Fi nal Result [facility] [address] [place] [address] * (ABNORMAL) CBC w/diff (07/08/2025 6:14 PM EDT) WBC Count 26.15(H) 3.70 - 10.30 10*3/uL LAB HEMATOLOGY METHOD 07/08/2025 9:04 PM EDT [facility] RBC Count 3.97 3.90 - 5.20 10*6/uL LAB HEMATOLOGY METHOD 07/08/2025 9:04 PM EDT [facility] HGB 10.9(L) 11.2 - 15.7 g/dL LAB HEMATOLOGY METHOD 07/08/2025 9:04 PM EDT [facility] HCT 33.6(L) 34.0 - 45.0 % LAB HEMATOLOGY METHOD 07/08/2025 9:04 PM EDT [facility] Platelet Count 329 155 - 369 10*3/uL LAB HEMATOLOGY METHOD 07/08/2025 9:04 PM EDT [facility] MCV 85 79 - 98 fL LAB HEMATOLOGY METHOD 07/08/2025 9:04 PM EDT [facility] MCH 27.5 26.0 - 32.0 pg LAB HEMATOLOGY METHOD 07/08/2025 9:04 PM EDT [facility] MCHC 32.4 30.7 - 35.5 g/dL LAB HEMATOLOGY METHOD 07/08/2025 9:04 PM EDT [facility] RDW 17.3(H) 11.5 - 14.5 % LAB HEMATOLOGY METHOD 07/08/2025 9:04 PM EDT [facility] MPV 10.1 8.8 - 12.5 fL LAB HEMATOLOGY METHOD 07/08/2025 9:04 PM EDT [facility] nRBC 0.0 <=0.0 per 100 WBCs LAB HEMATOLOGY METHOD 07/08/2025 9:04 PM EDT [facility] Differential Type Automated LAB HEMATOLOGY METHOD 07/08/2025 9:04 PM EDT [facility] Neutrophils % 91 % LAB HEMATOLOGY METHOD 07/08/2025 9:04 PM EDT [facility] Lymphocytes % 4 % LAB HEMATOLOGY METHOD 07/08/2025 9:04 PM EDT [facility] Monocytes % 4 % LAB HEMATOLOGY METHOD 07/08/2025 9:04 PM EDT [facility] Eosinophils % 0 % LAB HEMATOLOGY METHOD 07/08/2025 9:04 PM EDT [facility] Basophils % 0 % LAB HEMATOLOGY METHOD 07/08/2025 9:04 PM EDT [facility] Immature Granulocytes % 1 % LAB HEMATOLOGY METHOD 07/08/2025 9:04 PM EDT [facility] Neutrophils Absolute 23.61(H) 1.60 - 6.10 10*3/uL LAB HEMATOLOGY METHOD 07/08/2025 9:04 PM EDT [facility] Lymphocytes Absolute 1.15(L) 1.20 - 3.90 10*3/uL LAB HEMATOLOGY METHOD 07/08/2025 9:04 PM EDT [facility] Monocytes Absolute 0.98(H) 0.30 - 0.90 10*3/uL LAB HEMATOLOGY METHOD 07/08/2025 9:04 PM EDT [facility] Eosinophils Absolute 0.04 0.00 - 0.50 10*3/uL LAB HEMATOLOGY METHOD 07/08/2025 9:04 PM EDT [facility] Basophils Absolute 0.09 0.00 - 0.10 10*3/uL LAB HEMATOLOGY METHOD 07/08/2025 9:04 PM EDT [facility] Immature Granulocytes Absolute 0.25(H) 0.00 - 0.06 10*3/uL LAB HEMATOLOGY METHOD 07/08/2025 9:04 PM EDT [facility] Blood Venous blood specimen / Unknown Venipuncture / Unknown 07/08/2025 6:14 PM EDT 07/08/2025 6:23 PM EDT [facility] - 07/08/2025 9:04 PM EDT Therapeutic decision making should be based on absolute values, rather than percentages. us My Charles MD LAB BLOOD ORDERABLES Fi nal Result [facility] [address] [place] [address] * (ABNORMAL) CMP (07/08/2025 6:14 PM EDT) Glucose, Plasma 411(H) 74 - 99 mg/dL 07/08/2025 7:18 PM EDT [facility] BUN, Plasma 33(H) 7 - 21 mg/dL 07/08/2025 7:18 PM EDT [facility] Creatinine, Plasma 1.99(H) 0.60 - 1.10 mg/dL 07/08/2025 7:18 PM EDT [facility] BUN/Creatinine Ratio 17 07/08/2025 7:18 PM EDT [facility] Sodium, Plasma 131(L) 136 - 145 mmol/L 07/08/2025 7:18 PM EDT [facility] Potassium, Plasma 4.0 3.6 - 4.9 mmol/L 07/08/2025 7:18 PM EDT [facility] Chloride, Plasma 93(L) 97 - 107 mmol/L 07/08/2025 7:18 PM EDT [facility] CO2, Plasma 22 22 - 29 mmol/L 07/08/2025 7:18 PM EDT [facility] Anion Gap 16 6 - 16 mmol/L 07/08/2025 7:18 PM EDT [facility] Total Calcium, Plasma 9.3 8.9 - 10.2 mg/dL 07/08/2025 7:18 PM EDT [facility] Total Protein 6.0(L) 6.3 - 7.9 g/dL 07/08/2025 7:18 PM EDT [facility] Albumin, Plasma 2.6(L) 3.5 - 5.2 g/dL 07/08/2025 7:18 PM EDT [facility] AST, Plasma 16 10 - 35 U/L 07/08/2025 7:18 PM EDT [facility] ALT, Plasma 15 10 - 35 U/L 07/08/2025 7:18 PM EDT [facility] Alkaline Phosphatase, Plasma 165(H) 35 - 104 U/L 07/08/2025 7:18 PM EDT [facility] Total Bilirubin, Plasma 0.4 0.2 - 1.1 mg/dL 07/08/2025 7:18 PM EDT [facility] eGFRcr 30.3 mL/min/1.7 3m*2 07/08/2025 7:18 PM EDT [facility] Comment:Reported eGFRcr in m L/min/1.73m2 is based the CKD-EPI 2020 equation that does not use a race coefficient. Blood Venous blood specimen / Unknown Venipuncture / Unknown 07/08/2025 6:14 PM EDT 07/08/2025 6:23 PM EDT us My Charles MD LAB BLOOD ORDERABLES Fi nal Result [facility] [address] [id number] * [facility]ICAL [facility], E/M 30-74 MINUTES (07/08/2025 5:58 [...] needed, Starting on Tue07/11/25 at 1501, Until Tue07/11/25 at 1529, Routine Given 07/11/2025 3:01 PM [...] Comment: no wv in place due to [facility] dc) polyethylene glycol (Miralax) packet [...] RN) 0054 (Given - Provider: Inessa Almazan, RN)0715 (Given - Provider: Junior Sabrina Santos) [...] documented as of this encounter Care Teams Social And Political Studies Professor Relationship Specialty Start Date End Date Yenny Dhillon APRN [address] [place] [address] PCP - General 07/22/23 documented as of this encounter
--- OUTSIDE RECORDS SUMMARY | 2025-07-11 14:12 | XMS_ITS | Encounter Summary ---
Author Organization Healthcare Address [address] [place] [address] Care Team Providers Care Custom Furrier Name Role Phone Yenny Dhillon APRN Primary Care Provider [phone] Reason for Visit * Auth/Cert (Routine) Specialty Diagnoses / Procedures Referred By Bharati t Referred To Contact Diagnoses Necrotizing fasciitis (CMS/HCC) Necrotizing Fascitis Brittany Crawford MD [address] [facility] [address] [place] [address] Phone: tel: fax: PAV A Inpatient [address] [place] [address] Phone: tel: Referral ID Status Reason Start Date Expiration Date Visits Re quested Visits Authorized [id number] 1 1 Encounter Details Date Type Department Care Team ([facility] Contact Info) Description 07/11/2025 2:12 PM EDT Anesthesia Event PAV A OPERATING ROOM [address] [place] [address] Eddie Fulton MD [address] [place] [address] Yadi Goel MD [address] [place] [address] Anesthesia Record Procedure Summary Procedure [...] and Staff Patient location during procedure: OR FIRST MATE: Luis Manuel Sharpe CRNA Performed: FIRST MATE Patient Condition Indications for airway management: anesthesia [...] APPLICATION OR REPLACEMENT, WOUND VAC (Right) Location: [facility] / [place] OR Surgeons: Dorcas Hennessy MD HPI Ashley [...] 07/11/2025 ABG Lab Results Component Value Date [id number] 28 (H) 07/10/2025 LACTATE 1.7 (H) 07/10/2025 Lab Results Component Value Date PH 7.30 (L) 07/10/2025 PCO2 57 (H) 07/10/2025 PO2 80 (L) 07/10/2025 [id number] 95 07/10/2025 BASEEXC 1.1 07/10/2025 HCTSYR 31.5 (L) 07/10/2025 KSYR 3.9 07/10/2025 CLSYR 103 07/10/2025 GLUSYR 206 (H) 07/10/2025 CAION 5.0 07/10/2025 LACTATE 1.7 (H) 07/10/2025 EKG Encounter Date: 07/08/25 ECG Adult Result Value EKG DIAGNOSIS CLASS Abnormal Ventricular Rate 79 Atrial Rate 79 [place] Interval 188 QRSD Interval 90 QT Interval 354 QTC Interval 405 P [place] 44 R [place] 17 T Wave [place] 27 Diagnosis Sinus rhythm with frequent premature [...] Upcoming Encounters Date Type Department Care Team ([facility] st Contact Info) Description 11/19/2025 8:20 AM EST Office Visit Medical Office Building Urology [address], [address] [place] [address] Marj Matamoros APRN [address] [facility] [address] [place] [address] documented as of this encounter Procedures Procedure Name Priority Date/Time Associated Diagnosis Comments PB ANESTHESIA PLACEHOLDER Routine 07/11/2025 2:23 PM EDT [place] AN ELECTIVE ENDOTRACHEAL AIRWAY Routine 07/11/2025 2:23 PM EDT documented in this encounter Results * AK AN ELECTIVE ENDOTRACHEAL AIRWAY, PB ANESTHESIA PLACEHOLDER (07/11/2025 2:23 PM EDT) Narrative Luis Manuel Sharpe CRNA - 07/11/2025 2:23 PM EDT Luis Manuel Sharpe CRNA 07/11/2025 2:37 PM Airway Date/Time: 07/11/2025 2:23 PM Reason: elective Airway not difficult General Information and Staff Patient location during procedure: OR FIRST MATE: Luis Manuel Sharpe CRNA Performed: FIRST MATE Patient Condition Indications for airway management: anesthesia [...] % injection Intravenous, As needed, Starting on Tomasa [...] (Zofran) injection Intravenous, As needed, Starting on Tomasa 07/11/25 at 1415, Until Tomasa 07/11/25 at 1538, Routine, Anesthesia Intraprocedure Given 07/11/2025 2:15 PM EDT 4 mg phenylephrine in NS (Bebeto-Synephrine) 100 mcg/mL prefilled syringe Intravenous, As needed, Starting on Tomasa 07/11/25 at 1426, Until Tomasa 07/11/25 at 1538, [...] documented as of this encounter Care Teams Custom Furrier Relationship Specialty Start Date End Date Yenny Dhillon APRN [address] [place] [address] PCP - General 07/22/23 documented as of this encounter
--- OUTSIDE RECORDS SUMMARY | 2025-07-14 14:05 | XMS_ITS | Encounter Summary ---
Author Organization Healthcare Address [address] [place] [address] Care Team Providers Care Transportation Analyst Name Role Phone Yenny Dhillon APRN Primary Care Provider [phone] Reason for Visit * Reason Comments Wound Check * Auth/Cert (Routine) Specialty Diagnoses / Procedures Referred By Bharati wiggins Referred To Contact Diagnoses Necrotizing fasciitis ([facility]/HCC) Necrotizing Fascitis Luanne Crawford MD [address] [address] Phone: tel: fax: [facility] Inpatient [address] [place] [address] Phone: tel: Referral ID Status Reason Start Date Expiration Date Visits Re quested Visits Authorized [id number] 1 1 Encounter Details Date Type Department Care Team (Late st Contact Info) Description 07/14/2025 2:05 PM EDT - 07/14/2025 4:05 PM EDT Surgery [facility] OPERATING ROOM [address] [place] [address] Anne Franco MD [address] [address] Debridement, partial closure of right [...] any time in the past 12 m [facility], were you homeless or living in a long-term (including now)? No 07/15/2025 [facility] Utilities Answer Date Recorded In the [...] please call our General Surgery Clinic at [phone]. If there are questions or concerns after discharge from the hospital, call Radha Ugalde Nurse Coordinator between 7am-3pm at [phone]. If it is after hours, weekends, and holidays please call [phone] and ask for the resident full fashioned garment knitter for Emergency General Surgery. Medication requests should be made between the hours of 9:00 AM to 3:00 PM Tuesday thru Tuesday. Please note that based upon recent changes to [place] law related to prescribing opioid pain medications, [...] Outcome: Met Intervention: Promote Activity and Functional Cowley Flowsheets Taken 07/18/20252319 by Inessa Almazan, RN Self-Care Promotion: independence encouraged Taken 07/18/20251999 by Inessa Almazan, NAHID Activity Assistance Provided: assistance, stand-by Taken 07/14/20252310 by Rita Aleajndro, NAHID Adaptive Equipment Use: long-handled shoe horn [...] Flowsheets Taken 07/19/2025 0223 by Inessa Almazan, zinc plating machine operator Interventions: medication (see MAR) Taken 07/18/2025 [address] [...] Note Cristina Brown 50 y.o. female CSN: [id number] Admission: 07/08/2025 5:58 PM Primary Problem: Necrotizing fasciitis (CMS/HCC) Primary Stroboroma Operator: Primary Caregiver: Self Assistance Available at Discharge: [...] Community Agency(s): Patient's Choice of Community Agency(s): [facility] Patient/Family Anticipated Services at Transition: Patient/Family Anticipated Services at Transition: rehabilitation services DME/Equipment Needed after Discharge: Equipment Currently Used at Home: none Equipment Needed After Discharge: walker, rollator Readmission Within the Last 30 Days: Readmission Within the Last 30 Days: unable to assess Medicare Documentation: N/A Follow-up: Keaton Patel MD [address] [facility] [address] [place] [address] [facility] ([facility] [address] [address] Go on 07/19/2025 Discharge Transportation: Transportation Anticipated: [...] arranged for this date at 1400 from [facility]. Annie Littlejohn * Raj Peres RN - 07/19/2025 9:44 AM EDT Images from the original note were not included. 1087 Oxycodone Oral Tablet, Immediate Release Brand Names: Oxaydo, Roxicodone What is this medicine? Oxycodone (xc-k-DAB-done) is an opioid pain reliever. It is [...] should report to your doctor or health manager intensive care unit as soon as possible: ? allergic reactions [...] attention (report to your doctor or health manager intensive care unit if they continue or are bothersome): ? constipation ? dry mouth ? itching ? nausea, vomiting ? upset stomach This list may not describe all possible side effects. Call your doctor for medical advice about side effects. You may report side effects to FDA at 0-238-BFC-7001. Where should I keep my medicine? This [...] location. To find a disposal location, visit [employer]/[facility]/[place]. If you cannot take unused medicine to [...] from the original note were not included. [id number] Naloxone Nasal Hermon WHY is this medicine prescribed? Prescription and [...] pharmacist for the instructions or visit the outreach associate's website to get the instructions. You should [...] or doctor for a copy of the outreach associate's information for the patient. Are there OTHER [...] and out of their sight and reach. https://www.[employer].org Dispose of unneeded medications in a way [...] of all of the prescription and nonprescription (skga-iwg-zlmwwcp) medicines, vitamins, minerals, and dietary supplements you [...] independent, informed decision of an appropriate health manager intensive care unit, and the information is provided for informational [...] [place] Society of Health-System Pharmacists??, [address], [address], [place], [place]. All Rights Reserved. Duplication for commercial use must be authorized by [facility]. Selected Revisions: May 26, 2024. AHFS?? [...] controlled substances: ? Drug Enforcement Agency (HARIS): http://www.deadiversion.Clicks for a Causeoj.gov/drug_disposal/takeback/index.htm ? National Association of Drug Diversion Investigators (NADDI): http://rxdrugdropbox.org/ ? [place] Office of Drug Control Policy: http://odcp.az.gov/Prescription+Drug+Drop+Box+Sites.htm Are [...] that tracks prescriptions of controlled substances in [place]. The DANYELLE report tells your doctor if [...] or your doctor may then call the [place] Drug Enforcement and Professional Practices Branch at .This will start an investigation of the error. * Gauri McgregorJANETH - Raj Cardona RN - 07/19/2025 9:44 AM EDT Images from the original note were not included. 30693 Insulin: How to Use and Where to [...] ?needles? or ?sharps.? ? Call your local [employer] company to ask about removing the sharps container. You can also check withthe [facility] for Safe Community Needle Disposal at www.safeneedledisposal.org or 504-899-8206. Storing your insulin ? Keep unopened insulin [...] cold. Last Reviewed Date: 2023 00:00:00 ?? 5061-8897 [employer]. All rights reserved. This information is not intended as a substitute for professional medical care. Always follow your healthcare professional's instructions. * [facility] - Raj Cardona RN - 07/19/2025 9:43 AM EDT Images from the original note were not included. 603110to Diet: Diabetes Food is an important tool [...] [place] Diabetes Association at www.diabetes.org or 048-844-7122 o Association of Diabetes Care and Education Specialists at www.diabeteseducator.org/ Last Reviewed Date: 2024 00:00:00 ?? 4893-8751 [employer]. All rights reserved. This information is not intended as a substitute for professional medical care. Always follow your healthcare professional's instructions. * Gauri McgregorJANETH - Raj Cardona RN - 07/19/2025 9:43 AM EDT Images from the original note were not included. 24538 Diabetes: Understanding Carbohydrates, Fats, and Protein Food [...] foods. Last Reviewed Date: 2024 00:00:00 ?? 2273-5977 [employer]. All rights reserved. This information is not intended as a substitute for professional medical care. Always follow your healthcare professional's instructions. * Jodycynthia Jacky - Raj Cardona RN - 07/19/2025 9:43 AM EDT Images from the original note were not included. 05464 Discharge Instructions: Packing a Wound You have [...] chills. Last Reviewed Date: 2025 00:00:00 ?? 9494-6053 [employer]. All rights reserved. This information is not intended as a substitute for professional medical care. Always follow your healthcare professional's instructions. * [facility] - Raj Cardona RN - 07/19/2025 9:43 AM EDT Images from the original note were not included. 66721 Negative Pressure Wound Therapy Negative pressure wound [...] Last Reviewed Date: 2024 00:00:00 ?? [employer]. All rights reserved. This information is not intended as a substitute for professional medical care. Always follow your healthcare professional's instructions. * Gauri Rico - Raj Cardona RN - 07/19/2025 9:43 AM EDT Images from the original note were not included. 21232 Discharge Instructions: Changing Your Dressing You are [...] doctor. Last Reviewed Date: 2025 00:00:00 ?? 6829-9982 [employer]. All rights reserved. This information is not intended as a substitute for professional medical care. Always follow your healthcare professional's instructions. * [facility] - Raj Cardona RN - 07/19/2025 9:42 AM EDT Images from the original note were not included. [id number] Abscess (Incision and Drainage) An abscess is [...] treatment. Last Reviewed Date: 2024 00:00:00 ?? 3375-8450 [employer]. All rights reserved. This information is not intended as a substitute for professional medical care. Always follow your healthcare professional's instructions. * [facility] - Raj Cardona RN - 07/19/2025 9:42 AM EDT Images from the original note were not included. 71763 Preventing a Surgical Site Infection A risk [...] of infection. ? Controlled body temperature. A ectic-gxku-inlhss temperature during or after surgery prevents oxygen [...] and water or with an alcohol-based hand obiee lead developer before and after caring for you. Don?t [...] away. Last Reviewed Date: 2024 00:00:00 ?? 8850-6075 [employer]. All rights reserved. This information is not [...] to the condition itself. It comes from Dutch and Latin words for a gnawing sore [...] see your healthcare provider for either type. Hebret points about gangrene ? Gangrene is a [...] questions. Last Reviewed Date: 2023 00:00:00 ?? 5816-6551 The [employer]. All rights reserved. This information is not [...] MD PCP name and Address: Yenny Dhillon, SMALL PIECE CUTTER [address] [facility] / [place] [address] Referring provider name and address: Keaton Patel MD [address] [facility] [address] [place] [address] Chief Concern, Brief History of Present Illness, and Hospital Course Cristina Brown is a 50 y.o. female with PMH of DM, hidradenitis supparativa, current smoker (1.5ppd), hx of absent seizures, UTI, depression, anxiety, asthma, HLD, celiac disease, presenting to [facility] on 07/08/2025 as transfer with concern [...] and so will be discharged to [facility]. Surgeries and Procedures Procedures performed in [...] Your Medications These medications were sent to [facility] - [place], [place] - [address] [facility] [address] naloxone 4 mg/0.1 mL nasal spray Information [...] - Improving, continue to monitor Septic shock ([facility]) Overview Addendum 07/12/2025 1:55 PM by [...] in place, sutures removed on rounds. [facility] can re- apply negative pressurewound therapy: [...] please call our General Surgery Clinic at [phone]. If there are questions or concerns after discharge from the hospital, call Radha Ugalde, Nurse Coordinator between 7am-3pm at [phone]. If it is after hours, weekends, and holidays please call [phone] and ask for the resident full fashioned garment knitter for Emergency General Surgery. Medication requests should be made between the hours of 9:00 AM to 3:00 PM Tuesday thru Tuesday. Please note that based upon recent changes to [place] law related to prescribing opioid pain medications, [...] normal. Judgment: Judgment normal. Discharge Disposition/Condition Disposition: [facility] Condition: Stable (s/sx potential problems [...] 07/17/2025 I reviewed bg tracing in [facility] glucose timeline 07/19/25 ASSESSMENT Hospital Course: Cristina Brown is a 50 y.o. female with hx of type 2 DM, morbid obesity, hidradenitis supparativa, current smoker (1.5 ppd), hx of absent seizures, UTI, depression, anxiety, asthma, HLD, celiac disease who initially came to [facility] on 07/08/2025 as transfer with concern [...] to establish care with endocrine provider in [place], [place]. --> Provided patient with address and number of clinic. [[facility] Endocrinology Clinic in the [facility] Physician Building]. -Tentative discharge recommendations: [...] team via secure chat orpage us at [phone] during 7a-7p, Tuesday-Tuesday. For after hours please [...] 7:08 AM EDT Associated Problem(s): Necrotizing fasciitis ([facility]) - 07/09: debridement of necrotizing fasciitis [...] 7:08 AM EDT Associated Problem(s): Absence seizure ([facility]) - On Lamictal 50mg BID at [...] presented to [facility] with leukocytosis and exam findings consistent with necrotizing fasciitis. 07/09: debridement of necrotizing fasciitis in right lower extremity, groin, pubis, and abdominal wall of skin, subcutaneous tissue, and muscle fascia 07/10: repeat irrigation and debridement of RLE necrotizing fasciitis 07/11: wound washout, no debridement necessary Interval: GCS 15. Anxious. HDS on room air. Mobilizing with PT/OT. Tolerating PO diet. Last BM: 9/.Reporting new wound. Afebrile. No DVT visualized on [...] last 7 days Lab Units 07/19/2542707/18/2560207/17/25 0520 HEMOGLOBIN g/dL 9.6* 9.1* 9.2* HEMATOCRIT [...] eval PT/OT eval pending DM (diabetes mellitus) (CMS/[facility]) Present on Admission: Yes - Patient [...] the brett pad. After discussion with chief full fashioned garment knitter, decision was made to remove the [place] and place a rqk-rod-xxauiijf with Kerlix, Polymem, ABD pads, and skin tape. Please see daily progress notes for additional plans. - Jatin Miller MD Plastic and Reconstructive Surgery, PGY-1 * Care Plan - Inessa Almazan RN - 07/18/2025 11:24 PM EDT Problem: Adult Inpatient Plan of Care Goal: Plan of Care Review 07/18/2025 232 by Inessa Almazan RN Outcome: Ongoing, Progressing Flowsheets Taken 07/18/2025 2320 by Inessa Almazan RN Progress: improving Taken 07/18/2025 1633 by Josi Ann RN Plan of Care Reviewed With: patient 07/18/2025 231 by Inessa Almazan RN Outcome: Ongoing, Progressing Flowsheets Taken 07/18/2025 2319 by Inessa Almazan RN Progress: improving Taken [...] Note Cristina Brown 50 y.o. female CSN: [id number] Admission: 07/08/2025 5:58 PM Primary Problem: Necrotizing fasciitis (CMS/HCC) Anticipated Discharge Date: 07/19/25 Has Discharge Plans Changed? Yes [facility] Acute Rehab Medicare Second Notice: Housing Circumstances: Low Income ( 101-300% Federal Poverty Guideline) Housing Circumstances Action Taken: Medically Ready for Discharge: Anticipated Tomorrow Additional Comments Per the MD pt is medically ready to d/c after she can tolerate her wv being changed without IV painmedication. SW talked with the pt and she is agreeable to go to [facility] however she still has a lot [...] the MD team. Pt will transfer to [facility] via shuttle on 07/19 if all needs are addressed. Annie Littlejohn * Progress Notes - Sherrill Villa, SMALL PIECE CUTTER - 07/18/2025 8:46 AM EDT Endocrine - [...] HLD, celiac disease who initially came to [facility] on 07/08/2025 as transfer with concern [...] to establish care with endocrine provider in [place], [place]. --> Provided patient with address and number of clinic. [[facility] Endocrinology Clinic in the [facility] Physician Building]. -Tentative discharge recommendations: [...] team via secure chat orpage us at [phone] during 7a-7p, Tuesday-Tuesday. For after hours please [...] Morbid (severe) obesity due to excess calories ([facility]) Complicates all aspect of care * [...] MD - 07/18/2025 7:04 AM EDT 07/18/25 Irinadiann Brown HPI 50-year-old female with past medical [...] 07/17/25 0659 07/17/25 07 - 07/17/25 18507/17/25 1900 - [...] Ongoing, Progressing Intervention: Promote Activity and Functional Cowley Flowsheets (Taken 07/18/2025204) Activity Assistance Provided: assistance, [...] Ongoing, Progressing Intervention: Promote Activity and Functional Cowley Flowsheets Taken 07/16/2025 0635 by Yessenia Ramirez [...] (H) 07/15/2025 I reviewed bg tracing in [facility] glucose timeline 07/17/25 ASSESSMENT Hospital Course: Cristina Brown is a 50 y.o. female with hx of type 2 DM, morbid obesity, hidradenitis supparativa, current smoker (1.5 ppd), hx of absent seizures, UTI, depression, anxiety, asthma, HLD, celiac disease who initially came to [facility] on 07/08/2025 as transfer with concern [...] to establish care with endocrine provider in [place], [place]. --> Provided patient with address and number of clinic. [[facility] Endocrinology Clinic in the [facility] Physician Building]. -Tentative discharge recommendations: [...] via secure chat or page us at [phone] during 7a-7p, Tuesday-Tuesday. For after hours please [...] care close to her sisters house in [place]. CM notified. * Assessment & Plan Note - Andre, Jason M, MD - 07/17/2025 10:21 AM EDT Associated Problem(s): Necrotizing fasciitis ([facility]/HCC) - 07/09: debridement of necrotizing fasciitis in [...] from last 7 days Lab Units 07/17/25 0507/16/25 0525 07/14/25 0936 HEMOGLOBIN g/dL 9.2* 8.9* [...] admission Level of Mobility Ambulatory- community Mobility Cowley Independent gait without device History of Falls [...] motivated and engaged throughout Visitors Present None Embroidery Patternmaker (if applicable) OBJECTIVE PAIN Rates pain at [...] needed areas of treatment space Level of Cowley Interventions: Feeding Independent Edge of bed Patient [...] Level of Assistance: Moderate assistance Adaptive Equipment: Brand Marketing Specialist, Sock aide Training and demonstration provided for use and functionality of sock aid, leg oncology consultant strap and site supervising technical operator tool to support independence with LB [...] and prioritizing during ADL performance. Access Code: [email or web address] URL: [email or web address] Putting On Socks with a Sock Aid Putting On and Taking Off Pants Using a Brand Marketing Specialist Using a Leg Sewing Machine Bobbin Winder Adaptive Equipment for Bathing & Showering Understanding Energy Conservation BED MOBILITY Level of Cowley Physical/Non- physical Assist Adaptive Equipment Utilized Supine to Sit Modified Cowley Bed rails TRANSFERS Level of Cowley Physical/Non- physical Assist Adaptive Equipment Utilized Sit [...] PHYSICAL THERAPY TREATMENT PATIENT DATA Patient Name Nedia R Kevin Session Date 07/17/2025 Total Treatment Time 79 [...] admission Level of Mobility Ambulatory- community Mobility Cowley Independent gait without device History of Falls [...] discharged from [facility]. Embroidery Patternmaker (if applicable) Not Applicable OBJECTIVE & INTERVENTIONS [...] pt's true mobility BED MOBILITY Level of Cowley Physical/Non- physical Assist Adaptive Equipment Utilized Rolling/ Turning Scooting/ Bridging Supine to Sit Modified Cowley Bed rails Sit to Supine Interventions TRANSFERS Level of Cowley Physical/Non- physical Assist Adaptive Equipment Utilized Sit to Stand Stand-by assist Supervision Rollator Stand to sit Stand-by assist Supervision Rollator Bed to Chair Toilet Transfer Shower Transfer Interventions BALANCE Postural Appearance Posture: Forward head, Rounded shoulders Level of Cowley Balance Support Interventions Static Sit Standby assist Feet supported Dynamic Sit Contact guard Feet supported Dynamic Sitting-Balance: Lateral weight shifts, Anterior/Posterior weight shifts Static Stand Contact guard Right upper extremity support, Left upper extremity support Standing in room prior to ambulation Dynamic Stand Contact guard Right upper extremity support, Left upper extremity support 3 bouts of approx 1 min each AMBULATION Level of Cowley Distance Adaptive Equipment Utilized Ambulation Contact guard [...] Manage VTE (Venous Thromboembolism) Risk Flowsheets (Taken 07/17/2025449) VTE Prevention/Management: medication Intervention: Prevent Infection Flowsheets [...] Ongoing, Progressing Intervention: Promote Activity and Functional Cowley Flowsheets Taken 07/16/2025 0635 by Yessenia Ramirez [...] encouraged Taken 07/14/2025 1800 by Josi Ann director of community life Review/Management: medications reviewed Intervention: Promote Injury-Free Environment Flowsheets (Taken 07/16/2025 1700 by Diego Munroe) Safety Promotion/Fall Prevention: safety round/check completed nonskid shoes/slippers when out of bed mobility aid in reach room organization consistent clutter-free environment maintained assistive device/personal items within reach Problem: Self-Care Deficit Goal: Improved Ability to Complete Activities of Daily Living Outcome: Ongoing, Progressing Intervention: Promote Activity and Functional Cowley Flowsheets Taken 07/16/2025 0635 by Yessenia Ramirez [...] promoted Taken 07/14/2025 1800 by Josi Ann patient financial advocate/Support System Care: support provided Goal: Optimal Functional [...] RN Outcome: Ongoing, Progressing Flowsheets (Taken 07/16/2025 0129 [...] Intervention: Identify and Manage Fall Risk 07/16/2025 1810 by Isha Colunga RN [...] Ongoing, Progressing Intervention: Promote Activity and Functional Cowley Flowsheets (Taken 07/16/2025 012 by Eulalia Estrada [...] Infection Flowsheets (Taken 07/15/2025 1325 by Sophia Salazar RN) Infection Management: aseptic technique maintained Goal: [...] 3:01 PM EDT SW received call from Associate Financial Analyst offering assistance for d/c planning. Her Callback #[phone] * Progress Notes - Sherrill Villa APRN [...] 07/14/2025 I reviewed bg tracing in [facility] glucose timeline 07/16/25 ASSESSMENT Hospital Course: Cristina Brown is a 50 y.o. female with hx of type 2 DM, morbid obesity, hidradenitis supparativa, current smoker (1.5 ppd), hx of absent seizures, UTI, depression, anxiety, asthma, HLD, celiac disease who initially came to [facility] on 07/08/2025 as transfer with concern [...] to establish care with endocrine provider in [place], [place]. --> Provided patient with address and number of clinic. [[facility] Endocrinology Clinic in the [facility] Physician Building]. -Tentative discharge recommendations: [...] team via secure chat orpage us at [phone] during 7a-7p, Tuesday-Tuesday. For after hours please [...] 6:52 AM EDT Associated Problem(s): Necrotizing fasciitis ([facility]) - 07/09: debridement of necrotizing fasciitis [...] Prevent or Manage Infection Flowsheets Taken 07/16/2025 012 by Eulalia Estrada [...] Ongoing, Progressing Intervention: Promote Activity and Functional Cowley Flowsheets (Taken 07/16/2025 012) Self-Care Promotion: independence [...] Care Review Outcome: Ongoing, Progressing Flowsheets Taken 07/14/20251 by Rita Alejandro RN Progress: improving Taken [...] Ongoing, Progressing Intervention: Promote Activity and Functional Cowley Flowsheets Taken 07/15/2025 1745 by Denia Boo RN Activity Assistance Provided: assistance, stand-by Taken 07/14/2025 2311 by Rita Alejandro RN Adaptive Equipment Use: long-handled shoe horn Taken 07/14/2025 1800 by Josi Ann, RN Self-Care Promotion: independence encouraged Problem: Wound Goal: Optimal Coping Outcome: Ongoing, Progressing Intervention: Support Patient and Family Response Flowsheets Taken 07/15/2025 1325 by Sophai Salazar RN Supportive Measures: positive reinforcement provided Taken 07/14/2025 1800 by Josi Ann patient financial advocate/Support System Care: support provided Goal: Optimal Functional [...] Note Cristina Brown 50 y.o. female CSN: [id number] Room/Bed 123/123A Nutrition evaluation type: follow-up Reason for evaluation: Hospital course: 50 y o F transferred from [facility] with concern for necrotizing fasciitis; OR 07/08 for excisional debridement of RLE, groin, pubis, and abdominal wall of skin, subcutaneous tissue, and muscle fascia, [id number]. Septic shock secondary to NSTI. Intubated & [...] Supplemental oxygen O2 Delivery Method: Nasal cannula [place] Coma Scale Score: 15 Julián Scale Score: [...] Estimated Needs: Kcal: 25-27 kcal/kg adj bw (7035-3845 kcal/d) Protein: 1.5-1.7 g/kg adj bw (143-162 [...] Note Cristina Brown 50 y.o. female CSN: [id number] Admission: 07/08/2025 5:58 PM Primary Problem: Necrotizing fasciitis (CMS/HCC) Log Cooker reviewed chart and spoke with patient to complete this Initial Case Management Assessment. PCP: Yenny Dhillon APRN Emergency Contact: Extended Emergency Contact Information Primary Emergency Contact: Yecenia Lake Mobile Relation: Sister Preferred language: Cymraes Embroidery Patternmaker needed? No Secondary Emergency Contact: Arnoldo Raymond Address: [address] [place] [address] Mobile Relation: Significant Other Preferred language: Cymraes Embroidery Patternmaker needed? No Insurance: Primary Visit Coverage Payer Plan Sponsor Code Group Number Group Name [facility] MEDICAID [facility] MEDICAID [facility] Primary Visit Coverage Subscriber Subscriber ID Subscriber Name Subscriber N Subscriber Address [id number] CRISTINA BROWN [id number] [place] [address] Patient information: Primary Caregiver: Self Accompanied by/Relationship: Arnoldo Coleelor- significant other Support System: Immediate family, Extended family, Friends Daily Living Activities: Functional Status: Minimum assistance Living Arrangements: Family, Friends Type of Residence: Private residence [address] [place] [address] Smoker in the Home?: Yes Current DME: Equipment Currently Used at Home: none Income Information: Income Source: Unemployed Income/Expense Information: Expenses exceed income Current Resources Utilized: Food [place] Housing Circumstances-Z Codes: Housing Circumstances (select all [...] Dialysis Services: N/A Living Will/Advance Directive/Power of Machine Tracer /Guardian: N/A Additional Comments: Pt gets her medications from [facility] in [place] * Consults - Anupama [...] HLD, celiac disease who initially came to [facility] on 07/08/2025 as transfer with concern [...] after discharge close to her home at [place]. She agrees to call and make appointment [...] 17 g 17 g Oral Daily Lidia Ellsi MD 17 g at 07/12/25 1048 rosuvastatin [...] Endocrinology referral - patient requested to see room manager in [place], [place]. Provided patient with address and number of clinic. [[facility] Endocrinology Clinic in the [facility] Physician Building]. Patient has been on insulin while hospitalized, but utilizing metformin at home with good compliance. Diabetes care complicated by celiac diagnosis - placed nutrition consult to help patient navigate gluten free and diabetes diet. * Assessment & Plan Note - Jason Andre MD - 07/15/2025 7:15 AM EDT Associated Problem(s): Necrotizing fasciitis ([facility]) - 07/09: debridement of necrotizing fasciitis [...] Morbid (severe) obesity due to excess calories ([facility]/HCC) Complicates all aspect of care * Assessment & Plan Note - Jason Andre MD - 07/15/2025 7:15 AM EDT Associated Problem(s): Urge incontinence Patient currently with a montalvo catheter. Remove when able. * Assessment & Plan Note - Jason Andre MD - 07/15/2025 7:15 AM EDT Associated Problem(s): Absence seizure ([facility]) - On Lamictal 50mg BID at [...] 7:15 AM EDT Associated Problem(s): Septic shock ([facility]) Septic shock secondary to necrotizing fascitis. [...] RN Progress: improving Taken 07/14/2025 181 by Falls, Josi M, RN Plan of Care Reviewed With: patient [...] Ongoing, Progressing Intervention: Promote Activity and Functional Cowley Flowsheets Taken 07/14/2025 2311 by Rita Alejandro, [...] Skin Protection Flowsheets Taken 07/14/20251999 by Rita Aljeandro, NAHID Activity Management: back to bed Head [...] Ongoing, Progressing Intervention: Promote Activity and Functional Cow[place] Flowsheets (Taken 07/14/2025 1800) Activity Assistance Provided: [...] PM EDT Operative Note Date: 07/14/25 Location: [facility] OR Name: Cristina Brown, : 1975, Diagnoses: Pre-op Diagnosis Necrotizing fasciitis (CMS/HCC) Post-op Diagnosis Necrotizing fasciitis (CMS/HCC) Procedure(s): Wound irrigation Partial wound closure, total closed 30 cm length Attending Surgeon(s): * Anne Franco - Primary Slot Service Specialist(s): * Janell Cross MD - Resident [...] Collection Port Covered with Alcohol Cap Yes 07/14/251624 CAUTI: Urinary Catheter Indication Yes, meets indication reason 07/14/25 0000 CAUTI: Urinary Catheter Indication Reasons Stage 3-4 sacral/perineal wound with female incontinent patient 07/14/25 0000 Output (mL) 30 mL 07/14/25 1625 [REMOVED] NG/OG [facility] Sump Orogastric Center mouth (Removed) Placement Verification [...] (mL) 49 mL 07/10/25 0000 [REMOVED] NG/OG [facility] Sump 14 Fr Left nostril (Removed) Placement [...] portions of the procedure(s) and immediately available [facility] services the entire duration. [...] 7:31 AM EDT Associated Problem(s): Necrotizing fasciitis ([facility]) - 07/09: debridement of necrotizing fasciitis [...] Morbid (severe) obesity due to excess calories ([facility]) Complicates all aspect of care * [...] 7:31 AM EDT Associated Problem(s): Postoperative pain [facility] [...] 07/13/25 18507/13/25 1900 - 07/14/25 0659 07/14/25 07 - [...] Ongoing, Progressing Intervention: Promote Activity and Functional Cow[place] Flowsheets (Taken 07/13/20251826) Activity Assistance Provided: assistance, [...] Note Cristina Brown 50 y.o. female CSN: [id number] Admission: 07/08/2025 5:58 PM Primary Problem: Necrotizing fasciitis (CMS/HCC) Log Cooker reviewed chart and spoke with Cristina to complete this Initial Case Management Assessment. PCP: Yenny Dhillon APRN Emergency Contact: Extended Emergency Contact Information Primary Emergency Contact: Yecenia Lake Mobile Relation: Sister Preferred language: Cymraes Embroidery Patternmaker needed? No Secondary Emergency Contact: Arnoldo Raymond Address: [address] [place] [address] Mobile Relation: Significant Other Preferred language: Cymraes Embroidery Patternmaker needed? No Insurance: Primary Visit Coverage Payer Plan Sponsor Code Group Number Group Name [facility] MEDICAID [facility] MEDICAID [facility] Primary Visit Coverage Subscriber Subscriber ID Subscriber Name Subscriber SSN Subscriber Address [id number] CRISTINA BROWN R [id number] [place] [address] Patient information: Primary Caregiver: Self Accompanied by/Relationship: Arnoldo Raymond- significant other Support System: Immediate family Daily Living Activities: Functional Status: Independent Living Arrangements: Spouse/Significant other Type of Residence: Private residence [address] [place] [address] Current DME: Equipment Currently Used at Home: none Income Information: Housing Circumstances-Z Codes: Patient Referred to: Anticipated Discharge Date: unknown Patient's Discharge Goal: Referrals sent for Acute Rehab Assistance Available at Discharge: Arnoldo Raymond Discharge Transport: Arnoldo Raymond Follow Up Transport: Arnoldo raymond Home Health / Home Infusion / Outpatient Dialysis Services: none Living Will/Advance Directive/Power of Machine Tracer /Guardian: Additional Comments: CM discussed acute rehab placement with Cristina and Arnoldo Raymond. Their first choice is [facility] in [place], [place]. CM sent referrals in [facility]. Cristina will continue inpatient management for [...] diet * Assessment & Plan Note - Jtain Miller MD - 07/13/2025 12:36 PM EDT [...] Morbid (severe) obesity due to excess calories (CMS/[facility]) Complicates all aspect of care * [...] 12:36 PM EDT Associated Problem(s): Septic shock ([facility]/HCC) Septic shock secondary to necrotizing fascitis. Required [...] Postoperative pain MMPC * Progress Notes - Mirna Shultzsurjit Peoples - 07/13/2025 11:59 AM EDT Occupational Therapy Evaluation Patient Name: Cristina Brown Today's Date: 07/13/2025 OT Discharge Recommendations: Acute rehab Equipment Recommended: Defer to facility History Cristina Brown is 50 y.o. female admitted 07/08/2025 for work-up of Necrotizing fasciitis ([facility]). Problem List Active Hospital Problems Diagnosis Date Noted Postoperative pain 07/13/2025 JOSEP (obstructive sleep apnea) 07/11/2025 HLD (hyperlipidemia) 07/10/2025 Acute respiratory failure 07/09/2025 Septic shock ([facility]) 07/09/2025 Absence seizure ([facility]) 07/09/2025 DM (diabetes mellitus) ([facility]) 07/08/2025 Hidradenitis 07/08/2025 HTN (hypertension), benign 08/31/2023 Urge incontinence 08/31/2023 Smoker 06/09/2023 Depression 06/09/2023 Morbid (severe) obesity due to excess calories ([facility]) 02/15/2022 Chronic obstructive pulmonary disease, unspecified ([facility]) 01/09/2022 Necrotizing fasciitis ([facility]) 07/08/2025 Procedures 07/11/2025 Procedure(s): APPLICATION OR REPLACEMENT, WOUND VAC Past Medical History Patient has a past medical history of Anxiety, Asthma, Carpal tunnel syndrome, Depression, Diabetes([facility]), H/O absence seizures, Hidradenitis, High cholesterol, [...] evaluation. Participants in Care Family/Caregiver Present: No Embroidery Patternmaker: Not Applicable Presentation Oxygen Therapy: Supplemental oxygen [...] admission Level of Mobility: Ambulatory- community Mobility Cowley: Independent gait without device History of Falls: [...] Mobility Bed Mobility Exam: Scooting/Bridging Level of Cowley: Contact guard (seated scoot once sitting up on EOB and able to wiggle back into recliner chair) Bed Mobility Exam: Supine to Sit Level of Cowley: Moderate assist (50% patient's effort) Physical/Nonphysical Assist: Verbal Cues, Moderate cues, Additional assist utilized for safety, HOBelevated Assistive Device: Other (GLASS NOVELTY MAKER x2) Transfers Transfer Interventions: Patient performed sit < > stand x 3 reps total: Mod A from EOB, Min Afrom recliner chair, and CGA from BSC. Transfer Exam: Sit to stand Level of Cowley: Minimum assist (75% patient's effort) Physical/Nonphysical Assist: Verbal Cues, Minimal cues Assistive Device: Walker, rolling (andrea) Transfer Exam: Stand to Sit Level of Cowley: Minimum assist (75% patient's effort) Physical/Nonphysical Assist: Verbal Cues, Minimal cues Assistive Device: Walker, rolling (andrea) Transfer Exam: Bed to Chair/Chair to Bed Level of Cowley: Minimum assist (75% patient's effort) Physical/Nonphysical Assist: Verbal Cues, Minimal cues, Additional assist utilized for safety Type of Transfer: Sidesteps (bed > chair < > BSC) Assistive Device: Walker, rolling (andrea) Toilet Transfer Level of Cowley: Minimum assist (75% patient's effort) Physical/Nonphysical Assist: [...] to allow bedside care to take placed (HYDRAMATIC SPECIALIST entering to take vitals; RN enforcing [...] for further toileting ADL needs. Standardized Assessments [facility] 6-Click Daily Activities Help from Other: Don/Doff Regular Lower Body Clothings: A lot Help From Other: Bathing: A lot Help From Other: Toileting: A lot Help From Other: Don/Doff Upper Body Clothings: Little Help From Other: Grooming: None Help From Other: Eating Meals: None [facility] 6 Click - Daily Activities Score: [...] admitted 07/08/2025 for work-up of Necrotizing fasciitis ([facility]). Problem List Active Hospital Problems Diagnosis Date Noted Postoperative pain 07/13/2025 JOSEP (obstructive sleep apnea) 07/11/2025 HLD (hyperlipidemia) 07/10/2025 Acute respiratory failure 07/09/2025 Septic shock ([facility]/HCC) 07/09/2025 Absence seizure ([facility]) 07/09/2025 DM (diabetes mellitus) ([facility]) 07/08/2025 Hidradenitis 07/08/2025 HTN (hypertension), benign 08/31/2023 Urge incontinence 08/31/2023 Smoker 06/09/2023 Depression 06/09/2023 Morbid (severe) obesity due to excess calories ([facility]) 02/15/2022 Chronic obstructive pulmonary disease, unspecified ([facility]) 01/09/2022 Necrotizing fasciitis ([facility]) 07/08/2025 Procedures 07/11/2025 Procedure(s): APPLICATION OR [...] move. Participants in Care Family/Caregiver Present: No Embroidery Patternmaker: Not Applicable Presentation Oxygen Therapy: Supplemental oxygen [...] admission Level of Mobility: Ambulatory- community Mobility Cowley: Independent gait without device History of Falls: [...] Mobility Bed Mobility Exam: Scooting/Bridging Level of Cowley: Contact guard (seated scoot once sitting up on EOB and able to wiggle back into recliner chair) Bed Mobility Exam: Supine to Sit Level of Cowley: Moderate assist (50% patient's effort) Physical/Nonphysical Assist: Verbal Cues, Moderate cues, Additional assist utilized for safety, HOBelevated Assistive Device: Other (GLASS NOVELTY MAKER x 2) Transfers Transfer Interventions: Patient performed sit < > stand x 3 reps total: Mod A from EOB, Min Afrom recliner chair, and CGA from BSC. Cues for safe hand placement during transitions using RW. Transfer Exam: Sit to stand Level of Cowley: Minimum assist (75% patient's effort) Physical/Nonphysical Assist: Verbal Cues, Minimal cues Assistive Device: Walker, rolling (andrea) Transfer Exam: Stand to Sit Level of Cowley: Minimum assist (75% patient's effort) Physical/Nonphysical Assist: Verbal Cues, Minimal cues Assistive Device: Walker, rolling (andrea) Transfer Exam: Bed to Chair/Chair to Bed Level of Cowley: Minimum assist (75% patient's effort) Physical/Nonphysical Assist: Verbal Cues, Minimal cues, Additional assist utilized for safety Type of Transfer: Sidesteps (bed > chair < > BSC) Assistive Device: Walker, rolling (andrea) Toilet Transfer Level of Cowley: Minimum assist (75% patient's effort) Physical/Nonphysical Assist: Set-up required, Verbal Cues Type of Transfer: Sidesteps, To bedside commode (ordered bariatric [facility] from [facility] as patient had difficulty getting [...] assistance Standardized Assessments Standardized Assessments Standardized Assessments: [facility] 6-Clicks Mobility Assessment [facility] 6-Clicks Mobility Assessment Difficulty patient has turning [...] climbing 3-5 steps with a railing?: Unable [facility] 6-Clicks Mobility Assessment Total : 15 No [...] anxiety, asthma, HLD, celiac disease, presenting to [facility] on 07/08/2025 as transfer with concern [...] and so will be discharged to [facility]. * Assessment & Plan Note - [...] Edited by: Jatin Miller MD at 07/13/2025 7[address] Kidd Cosigned by Anne Franco MD [...] supervised clutter-free environment maintained * Procedures - Halmia Live RN - 07/12/2025 3:51 PM EDTAssociated [...] Airway None O2 Delivery Method: Nasal cannula TN SUP: 10 cm H20 Insp Time (sec): 1 sec FiO2 (%): 40 % S RR: 20 TN SUP: 10 cm H20 Output by Drain [...] - Improving, continue to monitor Septic shock ([facility]) Yes Overview Addendum 07/12/2025 1:55 PM by Gabriel Segovia - Septic shock secondary to necrotizing fascitis. - Required Levophed and Vasopressin for circulatory support. - Currently off pressor support, continue to monitor pressures. Chronic obstructive pulmonary disease, unspecified ([facility]) (Chronic) Yes Overview Addendum 07/11/2025 9:23 AM [...] Morbid (severe) obesity due to excess calories ([facility]) (Chronic) Yes Overview Addendum 07/11/2025 9:31 AM by Gabriel Segovia - Alondras care. - Counseling when appropriate. Smoker (Chronic) Yes Overview Signed 07/09/2025 3:05 PM by Lidia Ellis MD - Patient smokes 0.5-1ppd. - Smoking cessation when appropriate. Urge incontinence (Chronic) Yes DM (diabetes mellitus) ([facility]) (Chronic) Yes Overview Addendum 07/09/2025 4:11 PM by Lidia Ellis MD - Patient hyperglycemic, up to 300s. - Insulin drip per protocol. Hidradenitis (Chronic) Yes Absence seizure ([facility]) (Chronic) Yes Overview Addendum 07/11/2025 9:20 AM [...] saw and evaluated the patient with the medical/LEAD CLINICAL RESEARCH COORDINATOR/PA student. I discussed the case with the medical/LEAD CLINICAL RESEARCH COORDINATOR/PA student and agree with the findings and plan as documented. I personally performed the Examand Medical Decision Making. * Care Plan - Jf Cruz - 07/12/2025 3:41 AM EDT Problem: Adult Inpatient Plan of Care Goal: Plan of Care Review 07/12/2025 0340 by Jf Cruz Outcome: Ongoing, Progressing Flowsheets [...] PM EDT Operative Note Date: 07/11/25 Location: [facility] OR Name: Cristina Brown, : 1975, Diagnoses: Pre-op Diagnosis Necrotizing fasciitis (CMS/HCC) Post-op Diagnosis Necrotizing fasciitis (CMS/HCC) Procedure(s): Right groin/perineum/thigh/abdominal wound exploration and washout Attending Surgeon(s): * Gerhard, Dorcas S - Primary Slot Service Specialist(s): * Janell Cross MD - Resident [...] who is having surgery for Necrotizing fasciitis ([facility]). Patient had 2 prior debridements of [...] Note Cristina Brown 50 y.o. female CSN: [id number] Room/Bed 133/133A Nutrition evaluation type: follow-up Reason for evaluation: Hospital course: 50 y o F transferred from [facility] with concern for necrotizing fasciitis; OR 07/08 for excisional debridement of RLE, groin, pubis, and abdominal wall of skin, subcutaneous tissue, and muscle fascia, [id number]. Septic shock secondary to NSTI. Intubated & [...] O2 Delivery Method: High flow nasal cannula [place] Coma Scale Score: 15 Satnam/Cubbin Pressure Risk [...] Estimated Needs: Kcal: 25-27 kcal/kg adj bw (7166-2587 kcal/d) Protein: 1.5-1.7 g/kg adj bw (143-162 [...] -will monitor NPO duration -po per MD/ METALSMITH -when po diet appropriate, rec CC3, Gluten [...] insulin Surgical ICU Daily Progress Note 07/11/25 Kishanicholas Luz Kevin [facility] 50-year-old female with past medical history [...] Vent Status (ETT, Trach Only): In use TN SUP: 5 cm H20 Insp Time (sec): 1.5 sec Vent Mode: PS FiO2 (%): 60 % S RR: 14 TN SUP: 5 cm H20 MAP (cm H2O): [...] PM EDT Operative Note Date: 07/10/25 Location: [facility] OR Name: Cristina Brown, : 1975, Diagnoses: Pre-op Diagnosis Necrotizing fasciitis (CMS/HCC) Post-op Diagnosis Necrotizing fasciitis (CMS/HCC) Procedure(s): Right groin/perineum/thigh/abdominal wound exploration, debridement, and washout Attending Surgeon(s): * Dorcas Hennessy - Primary Slot Service Specialist(s): * Shelby Whittington MD - Resident [...] 07/08/25 234 Estimated Blood Loss: Minimal Drains: NG/OG [facility] Sump 14 Fr Left nostril (Active) Placement [...] 07/10/251199 CAUTI: Securement Method Securing device (Describe) 07/10/251199 CAUTI: Specimen Collection Port Covered with Alcohol Cap Yes 07/10/25 08 CAUTI: Urinary Catheter Indication Yes, meets indication reason 07/10/25799 CAUTI: Urinary Catheter Indication Reasons ICU patient requiring output monitoring q 1-2 hours withinterventions 07/10/25 08 Output (mL) 330 mL 07/10/25 1400 Specimen: None Findings: All viable tissue. Wound measuring approximately [id number]. Packed with 5 kerlix tied together. Indications: Cristina Brown is an 50 y.o. female who is having surgery for Necrotizing fasciitis ([facility]). Patient presented in septic shock secondary [...] Vent Status (ETT, Trach Only): In use TN SUP: 5 cm H20 Insp Time (sec): 1.5 sec Vent Mode: PS FiO2 (%): 50 % S RR: 14 TN SUP: 5 cm H20 MAP (cm H2O): [...] appropriate. Urge incontinence Yes DM (diabetes mellitus) ([facility]/HCC) Yes Overview Addendum 07/09/2025 4:11 PM by Lidia Ellis MD - Patient hyperglycemic, up to 300s. - Insulin drip per protocol. Hidradenitis Yes Absence seizure ([facility]) (Chronic) Yes Overview Addendum 07/10/2025 4:52 PM by Lidia Ellis MD On Lamictal 50mg BID. Acute respiratory failure Yes Overview Signed 07/09/2025 3:57 PM by Lidia Ellis MD - Patient presenting in septic shock due to RLE necrotizing fasciitis. - Requiring ventilator for respiratory support. Wean as tolerated. Septic shock ([facility]) Yes Overview Addendum 07/10/2025 4:53 PM [...] Protection: absorbent pad utilized/changed positioning supports utilized [id number] areas padded [id number] areas padded Problem: Skin Injury Risk Increased [...] Note Cristina Brown 50 y.o. female CSN: [id number] Room/Bed 133/133A Nutrition evaluation type: assessment Reason for evaluation: provider consult Hospital course: 50 y o F transferred from OSH with concern for necrotizing fasciitis; OR 07/08 for excisional debridement of RLE, groin, pubis, and abdominal wall of skin, subcutaneous tissue, and muscle fascia, [id number]. Septic shock secondary to NSTI. Intubated & sedated. TF initiated 07/09. Past medical/ surgical history: Past Medical History[1], celiac disease Surgical History[2] Social history: Social History[3] Additional comments: 07/09: Pt intubated and sedated. Visitor sleeping. Vitals and Basic Assessment: BP: 89/50 Temp: 36.3 ??C (97.3 ??F) Invasive Ventilator Initiated (ETT/Trach Only): Yes Oxygen Therapy: Supplemental oxygen O2 Delivery Method: Endotracheal tube, Mechanical ventilator [place] Coma Scale Score: 10 Satnam/Cubbin Pressure Risk Score: 23 Edema: Generalized Skin: NSTI RUE Allergies: Gluten meal (verify celiac disease dx with pt when able to interview) Medications: Current Scheduled Medications[4] Current Continuous Medications[5] NorEpi 0.1 mcg/kg/min; Propofol: 528 kcal/d Current PRN Medications[6] Labs: Results from last 7 days Lab Units 07/09/2545607/08/25 23507/08/25 1814 WBC 10*3/uL 32.25* 22.50* 26.15* HEMOGLOBIN g/dL 11.0* 10.0* 10.9* HEMATOCRIT % 33.4* 30.8* 33.6* PLATELETS 10*3/uL 358 273 329 Results from last 7 days Lab Units 07/09/2545607/08/25 2352 07/08/25 1814 SODIUM mmol/L 136 136 [...] oz) Estimated Needs: Kcal: 22-25 kcal/kg IBW (1710-8335 kcal/d) Protein: 2-2.5 g/kg IBW (136-171 g/d) [...] Anxiety Asthma Carpal tunnel syndrome Depression Diabetes ([facility]) H/O absence seizures Hidradenitis High cholesterol [...] Marijuana [4] acetaminophen, 1,000 mg, Nasogastric, q6h MARBIELL cefepime, 2 g, Intravenous, q8h famotidine, 20 [...] decreased. Palpations: Abdomen is soft. Skin: Comments: [id number] open wound with no extension of cellulitis. [...] PEEP (cmH2O): 18 S VT: 450 mL TN SUP: 10 cm H20 Insp Time (sec): 0.8 sec Vent Mode: PS FiO2 (%): 50 % S RR: 22 S VT: 450 mL TN SUP: 10 cm H20 MAP (cm H2O): 10 Output by Drain (mL) 07/07/25 07 - 07/07/25 18507/07/25 190 - 07/08/25 0659 07/08/25699 - 07/08/25 18507/08/25 [...] days Lab Units 07/09/25 04507/08/25 23507/08/25 1814 HEMOGLOBIN g/dL 11.0* 10.0* 10.9* [...] Hospital Problems POA * (Principal) Necrotizing fasciitis ([facility]) Yes Overview Addendum 07/09/2025 4:04 PM by [...] respiratory support. Wean as tolerated. Septic shock ([facility]) Yes Overview Signed 07/09/2025 3:58 PM by Lidia Ellis MD - Septic shock secondary to necrotizing fascitis. - Requiring Levophed for circulatory support. Wean as tolerated. Chronic obstructive pulmonary disease, unspecified ([facility] [facility]) Yes Overview Addendum 07/09/2025 4:10 PM [...] Morbid (severe) obesity due to excess calories ([facility]) Yes Overview Addendum 07/09/2025 4:07 PM by Lidia Ellis MD Complicates care. Smoker Yes Overview Signed 07/09/2025 3:05 PM by Lidia Ellis MD - Patient smokes 0.5-1ppd. - Smoking cessation when appropriate. Urge incontinence Yes DM (diabetes mellitus) ([facility]) Yes Overview Addendum 07/09/2025 4:11 PM [...] PM EDT Operative Note Date: 07/08/25 Location: [facility] Name: Cristina Brown, : 1975, Diagnoses: Pre-op Diagnosis Necrotizing fasciitis (CMS/HCC) Post-op Diagnosis Necrotizing fasciitis (CMS/HCC) Procedure(s): Excisional debridement of right thigh, groin pubis and abdominal wall including skin, subcutaneous tissue and fascia measuring 65 x 20 x 2cm Attending Surgeon(s): * Luanne Crawford - Primary Slot Service Specialist(s): * Kristy Fields MD - Resident [...] who is having surgery for Necrotizing fasciitis ([facility]). Patient presented as transfer from [facility] with right inner thigh wound which has [...] 07/08/2025 9:01 PM EDT Date: 07/09/25 Location: [facility] Name: Cristina Escobar Kevin, : 1975, Diagnoses: Pre-op Diagnosis Necrotizing fasciitis (CMS/HCC) Post-op Diagnosis Necrotizing fasciitis (CMS/HCC) Procedure(s): Excisional debridement of right lower extremity, groin, pubis, and abdominal wall of skin, subcutaneous tissue, and muscle fascia, 65x20 cm Attending Surgeon(s): * Luanne Crawford - Primary Slot Service Specialist(s): * Kristy Fields MD - Resident [...] Amina Ramirez MD Consult ordered by: My Mckinney MD History Of Present Illness Cristina Brown is a 50 y.o. female with PMH of DM, hidradenitis supparativa, current smoker (1.5 ppd), hx of absent seizures, UTI, depression, anxiety, asthma, HLD, celiac disease, presenting to [facility] on 07/08/2025 as transfer with [...] Resuscitation Marked and consented DM (diabetes mellitus) ([facility]) Present on Admission: Yes Hidradenitis Present on Admission: Yes Smoker Present on Admission: Yes Non-Hospital Problems Carpal tunnel syndrome Chronic obstructive pulmonary disease, unspecified ([facility]) Overview Signed 08/31/2023 9:36 AM by Janell Bueno Last Assessment & Plan: Condition: stable Reviewed trigger avoidance and reviewed proper use of inhalers and rescue medications. Reviewed concerning signs/symptoms and ER precautions. Follow up in: three months Dehydration Hidradenitis suppurativa History of hysterectomy HTN (hypertension), benign Depression Morbid (severe) obesity due to excess calories ([facility]) Overview Signed 08/31/2023 9:36 AM by [...] mL IVPB (vial adapter required) 2 g [id number] Deepthi Garcia MD linezolid (Zyvox) injection 600 [...] -ICU postoperatively * ED Procedure Note - yM Mckinney MD - 07/08/2025 5:58 PM EDT Associated Order(s): Critical Care Procedure Reason: NSTI Critical Care Performed by: My Mckinney MD Authorized by: My Mckinney MD Critical care provider statement: Critical [...] the findings and plan as documented. My Mckinney MD 07/08/252113 * ED Provider Notes - Deepthi Garcia MD - 07/08/2025 5:58 PM EDT Images from the original note were not included. - HPI Chief Complaint Patient presents with Wound Check Cristina Brown is a 50 yo F with a PMH of DM, hidradenitis supparativa, current smoker (1.5 ppd), asthma, HLD, celiac disease, presenting to [facility] on 07/08/2025 as transfer with concern [...] Heart Rate Resp BP 07/08/25 1804 07/08/25 18007/08/25180307/08/25 1820 37 ??C (98.6 ??F) 99 23 (!) 107/48 SpO2 Temp Source Heart Rate Source Patient Position 07/08/25180307/08/25 1804 07/08/25 1804 07/08/25 2334 93 % [...] site with chlorhexidine gluconate 4% (Hibiclens). Acknowledged MARGARETTE AMINA 07/08/251916 Void full fashioned garment knitter to OR Once Acknowledged MARGARETTE AMINA 07/08/251916 Case Request Operating Room: IRRIGATION AND DEBRIDEMENT, WOUND Once Completed MARGARETTE AMINA 07/08/25 181 Once Canceled MELVIN MY Carlos 07/08/25 181 Once Canceled DEEPTHI GARCIA 07/08/25 180 CMP STAT Final result MELVIN CECEDARY Gonzalez 07/08/25 180 CBC w/diff STAT Final result MELVIN DENVERKAREN Gonzalez 07/08/25 180 PT-INR STAT Final result MELVIN DENVERKAREN Gonzalez 07/08/25 180 Type and screen Start now Final result MELVIN CECEDARY Gonzalez 07/08/25 180 Lactic acid, venous STAT Final result MELVIN MY Carlos 07/08/25 180 C-Reactive protein STAT Final result MELVIN MY Carlos 07/08/25 180 Blood Culture (Aerobic/Anaerobet Set) STAT Acknowledged MELVIN CECEDARY Gonzalez 07/08/25 180 Blood Culture (Aerobic/Anaerobet Set) STAT Acknowledged MELVIN DENVERKAREN Gonzalez 07/08/25 180 Hepatitis C Antibody - ED Once Final result MELVIN DENVERKAREN Gonzalez 07/08/25 180 ED Protocol - HIV 1/2 Antibody/Antigen Screen Once Final result MELVIN DENVERKAREN Gonzalez 07/08/25 180 ED HIV 1/2 Antibody/Antigen Screen w/Reflex to HIV 1/2 Differentiation PROCEDURE ONCE Final result MELVIN DENVERKAREN Gonzalez 07/08/25 180 Consult to Emergency General Surgery [...] elevated [MR] 1999 C-Reactive protein(!) elevated [MR] Dannielle Jul 09, 2025 0131 Blood cultures ordered and pending [MR] 130 [...] None Disposition Admit Admitting/Attending Physician: LUANNE CRAWFORD [[id number]] Provider Care Team: [facility] [place] [facility] GENERAL SURGERY ICU 1 [159] [...] MD Resident 07/09/25 0133 Cosigned by My Mckinney MD at 07/09/2025 7:27 AM EDT Associated attestation - My Mckinney MD - 07/09/2025 7:27 AM EDT I [...] Visit Medical Office Building Urology [address], [address] [place] [address] Deepthi Matamoros, SMALL [employer]IECE C[employer] [address] [place] [address] Scheduled Referrals Name Type Priority Associated Diagnoses Order Schedule Discharge Ambulatory referral to NON Endocrinology Outpatient Referral Routine Morbid (severe) obesity due to excess calories (CMS/HCC) Type 2 diabetes mellitus with hyperglycemia, without long-term current use of insulin ([facility]) Celiac disease Expected: 07/15/2025 (Approximate), Expires: [...] UNSOLICITED RESULTS Routine 07/11/2025 9:57 AM EDT [facility], E/M 30-74 MINUTES Routine 07/11/2025 8:41 AM EDT Necrotizing fasciitis ([facility]) Morbid (severe) obesity due to excess calories ([facility]) Septic shock ([facility]) Type 2 diabetes mellitus with hyperglycemia, without long-term current use of insulin ([facility]) Respiratory insufficiency POCT GLUCOSE METER UNSOLICITED [...] ECG ADULT STAT 07/10/2025 8:42 AM EDT [facility], E/M 30-74 MINUTES Routine 07/10/2025 [...] CO2 MONITORING Routine 07/09/2025 8:00 AM EDT [facility], E/M 30-74 MINUTES Routine 07/09/2025 7:15 AM EDT Necrotizing fasciitis (CMS/HCC) Morbid (severe) obesity due to excess calories (CMS/HCC) Septic shock ([facility]) Acute respiratory failure with hypoxia POCT [...] PANEL, PLASMA STAT 07/08/2025 6:14 PM EDT [facility], E/M 30-74 MINUTES Routine 07/08/2025 [...] for testing. Comment 07/19/2025 5:[address] [facility] Alto Singer ID Laura Baez 025 5:32 PM EDT HEALTHCARE LAB Device ID [id number] 07/19/2025 5:[address] [facility] Specimen Type POC Capillary 07/19/2025 5:[address] [facility] Blood Capillary blood specimen / Unknown 07/19/2025 12:27 PM EDT 07/19/2025 5:32 PM EDT us Anne Franco MD LAB POINT OF CARE TEST DOCKED DEVICE UNSOLICITED RESULTS Final Result [facility] [address] [place] [address] * Phosphorus (07/19/2025 4:28 AM EDT) Pathologist [facility] Phosphorus, Plasma 3.6 2.5 - 4.5 mg/dL 07/19/2025 5:03 AM EDT [facility] Blood Venous blood specimen / Unknown Venipuncture / Unknown 07/19/2025 4:28 AM EDT 07/19/2025 4:35 AM EDT us Anne Franco MD LAB BLOOD ORDERABLES Sarah l Result [facility] [address] [place] [address] * (ABNORMAL) Magnesium (07/19/2025 4:28 AM EDT) Pathologist [facility] Magnesium, Plasma 1.8(L) 1.9 - 2.4 mg/dL 07/19/2025 5:03 AM EDT [facility] Blood Venous blood specimen / Unknown Venipuncture / Unknown 07/19/2025 4:28 AM EDT 07/19/2025 4:35 AM EDT us Anne Franco MD LAB BLOOD ORDERABLES Sarah l Result [facility] [address] [place] [address] * (ABNORMAL) CBC W/O Differential (07/19/2025 4:28 AM EDT) WBC Count 18.39(H) 3.70 - 10.30 10*3/uL LAB HEMATOLOGY METHOD 07/19/2025 4:51 AM EDT [facility] RBC Count 3.50(L) 3.90 - 5.20 10*6/uL LAB HEMATOLOGY METHOD 07/19/2025 4:51 AM EDT [facility] HGB 9.6(L) 11.2 - 15.7 g/dL LAB HEMATOLOGY METHOD 07/19/2025 4:51 AM EDT [facility] HCT 30.7(L) 34.0 - 45.0 % LAB HEMATOLOGY METHOD 07/19/2025 4:51 AM EDT [facility] Platelet Count 627(H) 155 - 369 10*3/uL LAB HEMATOLOGY METHOD 07/19/2025 4:51 AM EDT [facility] MCV 88 79 - 98 fL LAB HEMATOLOGY METHOD 07/19/2025 4:51 AM EDT [facility] MCH 27.4 26.0 - 32.0 pg LAB HEMATOLOGY METHOD 07/19/2025 4:51 AM EDT [facility] MCHC 31.3 30.7 - 35.5 g/dL LAB HEMATOLOGY METHOD 07/19/2025 4:51 AM EDT [facility] RDW 18.2(H) 11.5 - 14.5 % LAB HEMATOLOGY METHOD 07/19/2025 4:51 AM EDT [facility] MPV 10.2 8.8 - 12.5 fL LAB HEMATOLOGY METHOD 07/19/2025 4:51 AM EDT [facility] nRBC 0.1(H) <=0.0 per 100 WBCs LAB HEMATOLOGY METHOD 07/19/2025 4:51 AM EDT [facility] Blood Venous blood specimen / Unknown Venipuncture / Unknown 07/19/2025 4:28 AM EDT 07/19/2025 4:36 AM EDT us Anne Franco MD LAB BLOOD ORDERABLES Sarah bennett Result [facility] [address] [place] [address] * (ABNORMAL) Basic metabolic panel (07/19/2025 4:28 AM EDT) Glucose, Plasma 153(H) 74 - 99 mg/dL 07/19/2025 5:03 AM EDT [facility] BUN, Plasma 14 7 - 21 mg/dL 07/19/2025 5:03 AM EDT [facility] Creatinine, Plasma 0.73 0.60 - 1.10 mg/dL 07/19/2025 5:03 AM EDT [facility] BUN/Creatinine Ratio 19 07/19/2025 5:03 AM EDT [facility] Sodium, Plasma 137 136 - 145 mmol/L 07/19/2025 5:03 AM EDT [facility] Potassium, Plasma 4.3 3.6 - 4.9 mmol/L 07/19/2025 5:03 AM EDT [facility] Chloride, Plasma 97 97 - 107 mmol/L 07/19/2025 5:03 AM EDT [facility] CO2, Plasma 28 22 - 29 mmol/L 07/19/2025 5:03 AM EDT [facility] Anion Gap 12 6 - 16 mmol/L 07/19/2025 5:03 AM EDT [facility] Total Calcium, Plasma 9.0 8.9 - 10.2 mg/dL 07/19/2025 5:03 AM EDT [facility] eGFRcr 101.0 mL/min/1.7 3m*2 07/19/2025 5:03 AM EDT [facility] Comment:Reported eGFRcr in m L/min/1.73m2 is based the CKD-EPI 2020 equation that does not use a race coefficient. Blood Venous blood specimen / Unknown Venipuncture / Unknown 07/19/2025 4:28 AM EDT 07/19/2025 4:35 AM EDT us Anne Franco MD LAB BLOOD ORDERABLES Sarah l Result Performing Organization Address City/[facility] Co de Phone Number [facility] [address] [place] [address] * (ABNORMAL) POCT glucose meter (07/18/2025 8:33 [...] Comment 07/18/2025 8:36 PM EDT [facility]ALTH[facility]ARE [facility] Alto Singer ID Zach Martinez 8:36 PM EDT HEALTHCARE LAB Device ID [id number] 07/18/2025 8:36 PM EDT HEALTHCARE LAB Specimen Type POC Capillary 07/18/2025 8:36 PM EDT [facility]ALTH[facility]ARE [facility] Blood Capillary blood specimen / Unknown 07/18/2025 8:33 PM EDT 07/18/2025 8:36 PM EDT us Anne Franco MD LAB POINT OF CARE TEST DOCKED DEVICE UNSOLICITED RESULTS Final Result Performing Organization Address City/[facility] Co de Phone Number HEALTHCARE LAB [address] [place] [address] * (ABNORMAL) POCT glucose meter (07/18/2025 6:07 PM EDT) [facility] POCT Glucose 222(H) 74 - 99 mg/dL [...] Comment 07/18/2025 6:08 PM EDT [facility]ALTH[facility]ARE [facility] Alto Singer ID Monique Jacques 6:08 PM EDT HEALTHCARE LAB Device ID [id number] 07/18/2025 6:08 PM EDT HEALTHCARE LAB Specimen Type POC Capillary 07/18/2025 6:08 PM EDT [facility]ALTH[facility]ARE LAB Blood Capillary blood specimen / Unknown 07/18/2025 6:07 PM EDT 07/18/2025 6:08 PM EDT Anne Franco MD LAB POINT OF CARE TEST DOCKED DEVICE UNSOLICITED RESULTS Final Result [facility] [address] [place] [address] * (ABNORMAL) POCT glucose meter (07/18/2025 12:36 PM EDT) [facility] POCT Glucose 151(H) 74 - 99 mg/dL [...] 07/18/2025 12:38 PM EDT [facility] Alto Singer ID Laura Baez 025 12:38 PM EDT [facility] Device ID [id number] 07/18/2025 12:38 PM EDT [facility] Specimen Type POC Capillary 07/18/2025 12:38 PM EDT [facility]ALTH[facility]ARE [facility] Blood Capillary blood specimen / Unknown 07/18/2025 12:36 PM EDT 07/18/2025 12:38 PM EDT Anne Franco MD LAB POINT OF CARE TEST DOCKED DEVICE UNSOLICITED RESULTS Final Result Performing Organization Address City/[facility]/ZIP Co de Phone Number [facility]ARE [facility] [address] [place] [address] * (ABNORMAL) POCT glucose meter (07/18/2025 8:39 [...] Comment 07/18/2025 8:41 AM EDT [facility]ARE [facility] Alto Singer ID Laura Baez 025 8:41 AM EDT HEALTHCARE LAB Device ID [id number] 07/18/2025 8:41 AM EDT HEALTHCARE LAB Specimen Type POC Capillary 07/18/2025 8:[address] [facility] Blood Capillary blood specimen / Unknown 07/18/2025 8:39 AM EDT 07/18/2025 8:41 AM EDT Anne Franco MD LAB POINT OF CARE TEST DOCKED DEVICE UNSOLICITED RESULTS Final Result [facility] [address] [place] [address] * (ABNORMAL) Basic metabolic panel (07/18/2025 6:03 AM EDT) Glucose, Plasma 163(H) 74 - 99 mg/dL 07/18/2025 6:45 AM EDT [facility] BUN, Plasma 11 7 - 21 mg/dL 07/18/2025 6:45 AM EDT [facility] Creatinine, Plasma 0.65 0.60 - 1.10 mg/dL 07/18/2025 6:45 AM EDT [facility] BUN/Creatinine Ratio 17 07/18/2025 6:45 AM EDT [facility] Sodium, Plasma 138 136 - 145 mmol/L 07/18/2025 6:45 AM EDT [facility] Potassium, Plasma 3.8 3.6 - 4.9 mmol/L 07/18/2025 6:45 AM EDT [facility] Chloride, Plasma 99 97 - 107 mmol/L 07/18/2025 6:45 AM EDT [facility] CO2, Plasma 29 22 - 29 mmol/L 07/18/2025 6:45 AM EDT [facility] Anion Gap 10 6 - 16 mmol/L 07/18/2025 6:45 AM EDT [facility] Total Calcium, Plasma 8.5(L) 8.9 - 10.2 mg/dL 07/18/2025 6:45 AM EDT [facility] eGFRcr 108.1 mL/min/1.7 3m*2 07/18/2025 6:45 AM EDT [facility] Comment:Reported eGFRcr in m L/min/1.73m2 is based the CKD-EPI 2020 equation that does not use a race coefficient. Blood Venous blood specimen / Unknown Venipuncture / Unknown 07/18/2025 6:03 AM EDT 07/18/2025 6:12 AM EDT us Anne Franco MD LAB BLOOD ORDERABLES Sarah l Result [facility] [address] [place] [address] * (ABNORMAL) CBC W/O Differential (07/18/2025 6:03 AM EDT) WBC Count 16.76(H) 3.70 - 10.30 10*3/uL LAB HEMATOLOGY METHOD 07/18/2025 6:25 AM EDT [facility] RBC Count 3.25(L) 3.90 - 5.20 10*6/uL LAB HEMATOLOGY METHOD 07/18/2025 6:25 AM EDT [facility] HGB 9.1(L) 11.2 - 15.7 g/dL LAB HEMATOLOGY METHOD 07/18/2025 6:25 AM EDT [facility] HCT 28.8(L) 34.0 - 45.0 % LAB HEMATOLOGY METHOD 07/18/2025 6:25 AM EDT [facility] Platelet Count 523(H) 155 - 369 10*3/uL LAB HEMATOLOGY METHOD 07/18/2025 6:25 AM EDT [facility] MCV 89 79 - 98 fL LAB HEMATOLOGY METHOD 07/18/2025 6:25 AM EDT [facility] MCH 28.0 26.0 - 32.0 pg LAB HEMATOLOGY METHOD 07/18/2025 6:25 AM EDT [facility] MCHC 31.6 30.7 - 35.5 g/dL LAB HEMATOLOGY METHOD 07/18/2025 6:25 AM EDT [facility] RDW 17.6(H) 11.5 - 14.5 % LAB HEMATOLOGY METHOD 07/18/2025 6:25 AM EDT [facility] MPV 10.3 8.8 - 12.5 fL LAB HEMATOLOGY METHOD 07/18/2025 6:25 AM EDT [facility] nRBC 0.0 <=0.0 per 100 WBCs LAB HEMATOLOGY METHOD 07/18/2025 6:25 AM EDT [facility] Blood Venous blood specimen / Unknown Venipuncture / Unknown 07/18/2025 6:03 AM EDT 07/18/2025 6:12 AM EDT us Anne Franco MD LAB BLOOD ORDERABLES Sarah bennett Result [facility] [address] [place] [address] * (ABNORMAL) POCT glucose meter (07/17/2025 10:33 [...] Comment 07/17/2025 10:35 PM EDT [facility]ALTH[facility] Alto Singer ID Tha, 07/17/2025 10:35 PM EDT HEALTHCARE LAB Device ID [id number] 07/17/2025 10:35 PM EDT HEALTH[facility]ARE LAB Specimen Type POC Capillary 07/17/2025 10:35 PM EDT [facility] Blood Capillary blood specimen / Unknown 07/17/2025 10:33 PM EDT 07/17/2025 10:35 PM EDT Anne Franco MD LAB POINT OF CARE TEST DOCKED DEVICE UNSOLICITED RESULTS Final Result Performing Organization Address City/State/[facility] Co de Phone Number [facility]ARE [facility] [address] [place] [address] * PERIPHERAL IV ([employer] L[employer]) (07/17/2025 5:14 [...] 07/17/2025 5:12 PM EDT [facility] Alto Singer ID Monique Jacques 5:12 PM EDT [facility] Device ID [id number] 07/17/2025 5:12 PM EDT [facility] Specimen Type POC Capillary 07/17/2025 5:12 PM EDT [facility]ALTH[facility] Blood Capillary blood specimen / Unknown 07/17/2025 5:10 PM EDT 07/17/2025 5:12 PM EDT Anne Franco MD LAB POINT OF CARE TEST DOCKED DEVICE UNSOLICITED RESULTS Final Result [facility] [address] [place] [address] * (ABNORMAL) POCT glucose meter (07/17/2025 12:06 PM EDT) [facility] POCT Glucose 211(H) 74 - 99 mg/dL [...] 07/17/2025 12:07 PM EDT [facility] Alto Singer ID Josi Ann 12:07 PM EDT [facility] Device ID [id number] 07/17/2025 12:07 PM EDT [facility] Specimen Type POC Capillary 07/17/2025 12:07 PM EDT [facility]ALTH[facility] Blood Capillary blood specimen / Unknown 07/17/2025 12:06 PM EDT 07/17/2025 12:07 PM EDT us Anen Franco MD LAB POINT OF CARE TEST DOCKED DEVICE UNSOLICITED RESULTS Final Result [facility] [address] [place] [address] * US Extremity Limited MSK or Soft [...] Detected Not Detected 07/17/2025 12:11 PM EDT [facility] Swab Both anterior nares / Unknown Non-blood Collection / Unknown 07/17/2025 10:14 AM EDT 07/17/2025 10:33 AM EDT Narrative [facility] - 07/17/2025 12:11 PM [...] MICROBIOLOGY - GENERAL ORDER LUANNE Final Result [facility] [address] [place] [address] * (ABNORMAL) POCT glucose meter (07/17/2025 9:35 AM EDT) [facility] POCT Glucose 139(H) 74 - 99 mg/dL [...] Comment 07/17/2025 9:37 AM EDT [facility]ALTH[facility]ARE [facility] Alto Singer ID Josi Ann 9:37 AM EDT HEALTHCARE LAB Device ID [id number] 07/17/2025 9:37 AM EDT HEALTHCARE LAB Specimen Type POC Capillary 07/17/2025 9:[address] [facility] Blood Capillary blood specimen / Unknown 07/17/2025 9:35 AM EDT 07/17/2025 9:37 AM EDT Anne Franco MD LAB POINT OF CARE TEST DOCKED DEVICE UNSOLICITED RESULTS Final Result [facility] [address] [place] [address] * (ABNORMAL) Basic metabolic panel (07/17/2025 5:20 AM EDT) Glucose, Plasma 140(H) 74 - 99 mg/dL 07/17/2025 5:56 AM EDT [facility] BUN, Plasma 8 7 - 21 mg/dL 07/17/2025 5:56 AM EDT [facility] Creatinine, Plasma 0.59(L) 0.60 - 1.10 mg/dL 07/17/2025 5:56 AM EDT [facility] BUN/Creatinine Ratio 14 07/17/2025 5:56 AM EDT [facility] Sodium, Plasma 139 136 - 145 mmol/L 07/17/2025 5:56 AM EDT [facility] Potassium, Plasma 3.8 3.6 - 4.9 mmol/L 07/17/2025 5:56 AM EDT [facility] Chloride, Plasma 97 97 - 107 mmol/L 07/17/2025 5:56 AM EDT [facility] CO2, Plasma 31(H) 22 - 29 mmol/L 07/17/2025 5:56 AM EDT [facility] Anion Gap 11 6 - 16 mmol/L 07/17/2025 5:56 AM EDT [facility] Total Calcium, Plasma 8.6(L) 8.9 - 10.2 mg/dL 07/17/2025 5:56 AM EDT [facility] eGFRcr 110.6 mL/min/1.7 3m*2 07/17/2025 5:56 AM EDT [facility] Comment:Reported eGFRcr in m L/min/1.73m2 is based the CKD-EPI 2020 equation that does not use a race coefficient. Blood Venous blood specimen / Unknown Venipuncture / Unknown 07/17/2025 5:20 AM EDT 07/17/2025 5:27 AM EDT us Anne Franco MD LAB BLOOD ORDERABLES Sarah l Result [facility] [address] [place] [address] * Phosphorus, Plasma (07/17/2025 5:20 AM EDT) Phosphorus, Plasma 3.0 2.5 - 4.5 mg/dL 07/17/2025 5:56 AM EDT [facility] Blood Venous blood specimen / Unknown Venipuncture / Unknown 07/17/2025 5:20 AM EDT 07/17/2025 5:27 AM EDT us Anne Franco MD LAB BLOOD ORDERABLES Sarah l Result Performing Organization Address City/[facility]/ZIP Co de Phone Number [facility] [address] [place] [address] * (ABNORMAL) Magnesium, Plasma (07/17/2025 5:20 AM EDT) Pathologist [facility] Magnesium, Plasma 1.8(L) 1.9 - 2.4 mg/dL 07/17/2025 5:56 AM EDT [facility] Blood Venous blood specimen / Unknown Venipuncture / Unknown 07/17/2025 5:20 AM EDT 07/17/2025 5:27 AM EDT us Anne Franco MD LAB BLOOD ORDERABLES Sarah l Result Performing Organization Address City/[facility]/ZIP Co de Phone Number [facility] [address] [place] [address] * (ABNORMAL) CBC W/O Differential (07/17/2025 5:20 AM EDT) WBC Count 22.29(H) 3.70 - 10.30 10*3/uL LAB HEMATOLOGY METHOD 07/17/2025 5:37 AM EDT [facility] RBC Count 3.36(L) 3.90 - 5.20 10*6/uL LAB HEMATOLOGY METHOD 07/17/2025 5:37 AM EDT [facility] HGB 9.2(L) 11.2 - 15.7 g/dL LAB HEMATOLOGY METHOD 07/17/2025 5:37 AM EDT [facility] HCT 29.4(L) 34.0 - 45.0 % LAB HEMATOLOGY METHOD 07/17/2025 5:37 AM EDT [facility] Platelet Count 484(H) 155 - 369 10*3/uL LAB HEMATOLOGY METHOD 07/17/2025 5:37 AM EDT [facility] MCV 88 79 - 98 fL LAB HEMATOLOGY METHOD 07/17/2025 5:37 AM EDT [facility] MCH 27.4 26.0 - 32.0 pg LAB HEMATOLOGY METHOD 07/17/2025 5:37 AM EDT [facility] MCHC 31.3 30.7 - 35.5 g/dL LAB HEMATOLOGY METHOD 07/17/2025 5:37 AM EDT [facility] RDW 17.3(H) 11.5 - 14.5 % LAB HEMATOLOGY METHOD 07/17/2025 5:37 AM EDT [facility] MPV 10.4 8.8 - 12.5 fL LAB HEMATOLOGY METHOD 07/17/2025 5:37 AM EDT [facility] nRBC 0.1(H) <=0.0 per 100 WBCs LAB HEMATOLOGY METHOD 07/17/2025 5:37 AM EDT [facility] Blood Venous blood specimen / Unknown Venipuncture / Unknown 07/17/2025 5:20 AM EDT 07/17/2025 5:27 AM EDT us Anne Franco MD LAB BLOOD ORDERABLES Sarah bennett Result [facility] [address] [place] [address] * (ABNORMAL) POCT glucose meter (07/16/2025 8:24 [...] Comment 07/16/2025 8:26 PM EDT [facility] [place] ID Lacie Marcelo 07/16/20 8:26 PM EDT [facility] Device ID [id number] 07/16/2025 8:26 PM EDT [facility] Specimen Type POC Capillary 07/16/2025 8:26 PM EDT [facility] Blood Capillary blood specimen / Unknown 07/16/2025 8:24 PM EDT 07/16/2025 8:26 PM EDT us Anne Franco MD LAB POINT OF CARE TEST DOCKED DEVICE UNSOLICITED RESULTS Final Result Performing Organization Address City/[facility] Co de Phone Number [facility] [address] [place] [address] * (ABNORMAL) POCT glucose meter (07/16/2025 5:34 [...] 07/16/2025 5:36 PM EDT [facility] [place] ID Diego Munroe 07/16/20 5:36 PM EDT [facility] Device ID [id number] 07/16/2025 5:36 PM EDT [facility] Specimen Type POC Capillary 07/16/2025 5:36 PM EDT [facility] Blood Capillary blood specimen / Unknown 07/16/2025 5:34 PM EDT 07/16/2025 5:36 PM EDT us Anne Franco MD LAB POINT OF CARE TEST DOCKED DEVICE UNSOLICITED RESULTS Final Result Performing Organization Address City/[facility]/ZIP Co de Phone Number [facility] [address] [place] [address] * (ABNORMAL) POCT glucose meter (07/16/2025 12:06 [...] 07/16/2025 12:08 PM EDT [facility] [place] ID Diego Munroe 07/16/20 12:08 PM EDT [facility] Device ID [id number] 07/16/2025 12:08 PM EDT [facility] Specimen Type POC Capillary 07/16/2025 12:08 PM EDT [facility] Blood Capillary blood specimen / Unknown 07/16/2025 12:06 PM EDT 07/16/2025 12:08 PM EDT us Anne Franco MD LAB POINT OF CARE TEST DOCKED DEVICE UNSOLICITED RESULTS Final Result Performing Organization Address City/State/[facility] Co de Phone Number [facility] [address] [place] [address] * XR Chest 1 View (07/16/2025 11:25 [...] - 99 mg/dL 07/16/2025 8:24 AM EDT [facility] Comment:Accuracy of a glucos e result [...] Comment 07/16/2025 8:24 AM EDT [facility] [place] ID Diego Munroe 07/16/20 8:24 AM EDT [facility] Device ID [id number] 07/16/2025 8:24 AM EDT [facility] Specimen Type POC Capillary 07/16/2025 8:24 AM EDT [facility] Blood Capillary blood specimen / Unknown 07/16/2025 8:22 AM EDT 07/16/2025 8:24 AM EDT us Anne Franco MD LAB POINT OF CARE TEST DOCKED DEVICE UNSOLICITED RESULTS Final Result Performing Organization Address City/[facility] de Phone Number [facility] [address] [place] [address] * Phosphorus (07/16/2025 5:25 AM EDT) Phosphorus, Plasma 2.8 2.5 - 4.5 mg/dL 07/16/2025 7:12 AM EDT [facility] Blood Venous blood specimen / Unknown Venipuncture / Unknown 07/16/2025 5:25 AM EDT 07/16/2025 5:33 AM EDT us Anne Franco MD LAB BLOOD ORDERABLES Sarah l Result [facility] [address] [place] [address] * (ABNORMAL) Magnesium (07/16/2025 5:25 AM EDT) Magnesium, Plasma 1.8(L) 1.9 - 2.4 mg/dL 07/16/2025 7:12 AM EDT [facility] Blood Venous blood specimen / Unknown Venipuncture / Unknown 07/16/2025 5:25 AM EDT 07/16/2025 5:33 AM EDT us Anne Franco MD LAB BLOOD ORDERABLES Sarah bennett Result [facility] [address] [place] [address] * (ABNORMAL) Basic metabolic panel (07/16/2025 5:25 AM EDT) Glucose, Plasma 149(H) 74 - 99 mg/dL 07/16/2025 6:01 AM EDT [facility] BUN, Plasma 9 7 - 21 mg/dL 07/16/2025 6:01 AM EDT [facility] Creatinine, Plasma 0.48(L) 0.60 - 1.10 mg/dL 07/16/2025 6:01 AM EDT [facility] BUN/Creatinine Ratio 19 07/16/2025 6:01 AM EDT [facility] Sodium, Plasma 140 136 - 145 mmol/L 07/16/2025 6:01 AM EDT [facility] Potassium, Plasma 3.4(L) 3.6 - 4.9 mmol/L 07/16/2025 6:01 AM EDT [facility] Chloride, Plasma 99 97 - 107 mmol/L 07/16/2025 6:01 AM EDT [facility] CO2, Plasma 31(H) 22 - 29 mmol/L 07/16/2025 6:01 AM EDT [facility] Anion Gap 10 6 - 16 mmol/L 07/16/2025 6:01 AM EDT [facility] Total Calcium, Plasma 8.6(L) 8.9 - 10.2 mg/dL 07/16/2025 6:01 AM EDT [facility] eGFRcr 116.3 mL/min/1.7 3m*2 07/16/2025 6:01 AM EDT [facility] Comment:Reported eGFRcr in m L/min/1.73m2 is based the CKD-EPI 2020 equation that does not use a race coefficient. Blood Venous blood specimen / Unknown Venipuncture / Unknown 07/16/2025 5:25 AM EDT 07/16/2025 5:33 AM EDT us Anne Franco MD LAB BLOOD ORDERABLES Sarah sabrina Result [facility] [address] [place] [address] * (ABNORMAL) CBC W/O Differential (07/16/2025 5:25 AM EDT) WBC Count 22.22(H) 3.70 - 10.30 10*3/uL LAB HEMATOLOGY METHOD 07/16/2025 5:41 AM EDT [facility] RBC Count 3.30(L) 3.90 - 5.20 10*6/uL LAB HEMATOLOGY METHOD 07/16/2025 5:41 AM EDT [facility] HGB 8.9(L) 11.2 - 15.7 g/dL LAB HEMATOLOGY METHOD 07/16/2025 5:41 AM EDT [facility] HCT 28.9(L) 34.0 - 45.0 % LAB HEMATOLOGY METHOD 07/16/2025 5:41 AM EDT [facility] Platelet Count 376(H) 155 - 369 10*3/uL LAB HEMATOLOGY METHOD 07/16/2025 5:41 AM EDT [facility] MCV 88 79 - 98 fL LAB HEMATOLOGY METHOD 07/16/2025 5:41 AM EDT [facility] MCH 27.0 26.0 - 32.0 pg LAB HEMATOLOGY METHOD 07/16/2025 5:41 AM EDT [facility] MCHC 30.8 30.7 - 35.5 g/dL LAB HEMATOLOGY METHOD 07/16/2025 5:41 AM EDT [facility] RDW 17.2(H) 11.5 - 14.5 % LAB HEMATOLOGY METHOD 07/16/2025 5:41 AM EDT [facility] MPV 10.3 8.8 - 12.5 fL LAB HEMATOLOGY METHOD 07/16/2025 5:41 AM EDT [facility] nRBC 0.1(H) <=0.0 per 100 WBCs LAB HEMATOLOGY METHOD 07/16/2025 5:41 AM EDT [facility] Blood Venous blood specimen / Unknown Venipuncture / Unknown 07/16/2025 5:25 AM EDT 07/16/2025 5:33 AM EDT us Anne Franco MD LAB BLOOD ORDERABLES Sarah l Result [facility] [address] [place] [address] * (ABNORMAL) POCT glucose meter (07/15/2025 9:38 [...] Comment 07/15/2025 9:39 PM EDT [facility] [place] ID Yessenia Ramirez 9:39 PM EDT [facility] Device ID [id number] 07/15/2025 9:[address] [facility] Specimen Type POC Capillary 07/15/2025 9:[address] [facility] Blood Capillary blood specimen / Unknown 07/15/2025 9:38 PM EDT 07/15/2025 9:39 PM EDT us Anne Franco MD LAB POINT OF CARE TEST DOCKED DEVICE UNSOLICITED RESULTS Final Result Performing Organization Address City/[facility] Co de Phone Number [facility] [address] [place] [address] * (ABNORMAL) POCT glucose meter (07/15/2025 6:03 PM EDT) Pathologist [facility] POCT Glucose 234(H) 74 - 99 mg/dL [...] 07/15/2025 6:04 PM EDT [facility] [place] ID Venessa Amin 07/15/2025 6:04 PM EDT [facility] Device ID [id number] 07/15/2025 6:04 PM EDT [facility] Specimen Type POC Capillary 07/15/2025 6:04 PM EDT [facility] Blood Capillary blood specimen / Unknown 07/15/2025 6:03 PM EDT 07/15/2025 6:04 PM EDT us Anne Franco MD LAB POINT OF CARE TEST DOCKED DEVICE UNSOLICITED RESULTS Final Result Performing Organization Address [facility] de Phone Number [facility] [address] [place] [address] * (ABNORMAL) POCT glucose meter (07/15/2025 12:38 [...] Comment 07/15/2025 12:40 PM EDT [facility] [place] ID Venessa Amin 07/15/2025 12:40 PM EDT [facility] Device ID [id number] 07/15/2025 12:40 PM EDT [facility] Specimen Type POC Capillary 07/15/2025 12:40 PM EDT [facility] Blood Capillary blood specimen / Unknown 07/15/2025 12:38 PM EDT 07/15/2025 12:40 PM EDT us Anne Franco MD LAB POINT OF CARE TEST DOCKED DEVICE UNSOLICITED RESULTS Final Result Performing Organization Address City/[facility] Co de Phone Number [facility] [address] [place] [address] * (ABNORMAL) POCT glucose meter (07/15/2025 8:38 AM EDT) [facility] POCT Glucose 132(H) 74 - 99 mg/dL [...] Comment 07/15/2025 8:39 AM EDT [facility] [place] ID Venessa Amin 07/15/2025 8:39 AM EDT [facility] Device ID [id number] 07/15/2025 8:39 AM EDT [facility] Specimen Type POC Capillary 07/15/2025 8:39 AM EDT [facility] Blood Capillary blood specimen / Unknown 07/15/2025 8:38 AM EDT 07/15/2025 8:39 AM EDT Anne Franco MD LAB POINT OF CARE TEST DOCKED DEVICE UNSOLICITED RESULTS Final Result Performing Organization Address City/[facility]/ZIP Co de Phone Number [facility] [address] [place] [address] * (ABNORMAL) Phosphorus (07/15/2025 4:50 AM EDT) [facility] Phosphorus, Plasma 2.3(L) 2.5 - 4.5 mg/dL 07/15/2025 7:33 AM EDT [facility] Blood Venous blood specimen / Unknown Venipuncture / Unknown 07/15/2025 4:50 AM EDT 07/15/2025 4:59 AM EDT Anne Franco MD LAB BLOOD ORDERABLES Sarah l Result [facility] [address] [place] [address] * Magnesium (07/15/2025 4:50 AM EDT) Magnesium, Plasma 1.9 1.9 - 2.4 mg/dL 07/15/2025 7:33 AM EDT [facility] Blood Venous blood specimen / Unknown Venipuncture / Unknown 07/15/2025 4:50 AM EDT 07/15/2025 4:59 AM EDT us Anne Franco MD LAB BLOOD ORDERABLES Sarah sabrina Result [facility] [address] [place] [address] * (ABNORMAL) Basic metabolic panel (07/15/2025 4:50 AM EDT) Pathologist [facility] Glucose, Plasma 150(H) 74 - 99 mg/dL 07/15/2025 5:31 AM EDT [facility] BUN, Plasma 11 7 - 21 mg/dL 07/15/2025 5:31 AM EDT [facility] Creatinine, Plasma 0.54(L) 0.60 - 1.10 mg/dL 07/15/2025 5:31 AM EDT [facility] BUN/Creatinine Ratio 20 07/15/2025 5:31 AM EDT [facility] Sodium, Plasma 136 136 - 145 mmol/L 07/15/2025 5:31 AM EDT [facility] Potassium, Plasma 4.1 3.6 - 4.9 mmol/L 07/15/2025 5:31 AM EDT [facility] Chloride, Plasma 95(L) 97 - 107 mmol/L 07/15/2025 5:31 AM EDT [facility] CO2, Plasma 32(H) 22 - 29 mmol/L 07/15/2025 5:31 AM EDT [facility] Anion Gap 9 6 - 16 mmol/L 07/15/2025 5:31 AM EDT [facility] Total Calcium, Plasma 8.8(L) 8.9 - 10.2 mg/dL 07/15/2025 5:31 AM EDT [facility] eGFRcr 113.0 mL/min/1.7 3m*2 07/15/2025 5:31 AM EDT [facility] Comment:Reported eGFRcr in m L/min/1.73m2 is based the CKD-EPI 2020 equation that does not use a race coefficient. Blood Venous blood specimen / Unknown Venipuncture / Unknown 07/15/2025 4:50 AM EDT 07/15/2025 4:59 AM EDT Anne Franco MD LAB BLOOD ORDERABLES Sarah l Result Performing Organization Address City/[facility]/ZIP Co de Phone Number [facility] [address] [place] [address] * (ABNORMAL) POCT glucose meter (07/14/2025 7:57 [...] Comment 07/14/2025 7:58 PM EDT [facility] [place] ID Bernard Chirinos 07/14/20 7:58 PM EDT [facility] Device ID [id number] 07/14/2025 7:[address] [facility] Specimen Type POC Capillary 07/14/2025 7:[address] [facility] Blood Capillary blood specimen / Unknown 07/14/2025 7:57 PM EDT 07/14/2025 7:58 PM EDT us Anne Franco MD LAB POINT OF CARE TEST DOCKED DEVICE UNSOLICITED RESULTS Final Result Performing Organization Address City/[facility]/ZIP Co de Phone Number [facility] [address] [place] [address] * (ABNORMAL) POCT glucose meter (07/14/2025 4:56 [...] 07/14/2025 4:58 PM EDT [facility] [place] ID Riana Higgins 07/14/2025 4:58 PM EDT [facility] Device ID [id number] 07/14/2025 4:58 PM EDT [facility] Specimen Type POC Capillary 07/14/2025 4:58 PM EDT [facility] Blood Capillary blood specimen / Unknown 07/14/2025 4:56 PM EDT 07/14/2025 4:58 PM EDT Anne Franco MD LAB POINT OF CARE TEST DOCKED DEVICE UNSOLICITED RESULTS Final Result Performing Organization Address City/State/[facility] Co de Phone Number [facility] [address] [place] [address] * (ABNORMAL) POCT glucose meter (07/14/2025 12:38 PM EDT) [facility] POCT Glucose 143(H) 74 - 99 mg/dL [...] 07/14/2025 12:39 PM EDT [facility] [place] ID Laura Baez 025 12:39 PM EDT [facility] Device ID [id number] 07/14/2025 12:39 PM EDT [facility] Specimen Type POC Capillary 07/14/2025 12:39 PM EDT [facility] Blood Capillary blood specimen / Unknown 07/14/2025 12:38 PM EDT 07/14/2025 12:39 PM EDT us Anne Franco MD LAB POINT OF CARE TEST DOCKED DEVICE UNSOLICITED RESULTS Final Result [facility] [address] [place] [address] * (ABNORMAL) Basic metabolic panel (07/14/2025 9:36 AM EDT) Glucose, Plasma 191(H) 74 - 99 mg/dL 07/14/2025 10:15 AM EDT [facility] BUN, Plasma 16 7 - 21 mg/dL 07/14/2025 10:15 AM EDT [facility] Creatinine, Plasma 0.61 0.60 - 1.10 mg/dL 07/14/2025 10:15 AM EDT [facility] BUN/Creatinine Ratio 26 07/14/2025 10:15 AM EDT [facility] Sodium, Plasma 138 136 - 145 mmol/L 07/14/2025 10:15 AM EDT [facility] Potassium, Plasma 3.2(L) 3.6 - 4.9 mmol/L 07/14/2025 10:15 AM EDT [facility] Chloride, Plasma 96(L) 97 - 107 mmol/L 07/14/2025 10:15 AM EDT [facility] CO2, Plasma 33(H) 22 - 29 mmol/L 07/14/2025 10:15 AM EDT [facility] Anion Gap 9 6 - 16 mmol/L 07/14/2025 10:15 AM EDT [facility] Total Calcium, Plasma 8.7(L) 8.9 - 10.2 mg/dL 07/14/2025 10:15 AM EDT [facility] eGFRcr 109.8 mL/min/1.7 3m*2 07/14/2025 10:15 AM EDT [facility] Comment:Reported eGFRcr in m L/min/1.73m2 is based the CKD-EPI 2020 equation that does not use a race coefficient. Blood Venous blood specimen / Unknown Venipuncture / Unknown 07/14/2025 9:36 AM EDT 07/14/2025 9:44 AM EDT us Anne Franco MD LAB BLOOD ORDERABLES Sarah l Result Performing Organization Address City/[facility]/ZIP Co de Phone Number [facility] [address] [place] [address] * (ABNORMAL) Magnesium, Plasma (07/14/2025 9:36 AM EDT) Magnesium, Plasma 1.7(L) 1.9 - 2.4 mg/dL 07/14/2025 10:15 AM EDT [facility] Blood Venous blood specimen / Unknown Venipuncture / Unknown 07/14/2025 9:36 AM EDT 07/14/2025 9:44 AM EDT us Anne Franco MD LAB BLOOD ORDERABLES Sarah l Result Performing Organization Address [facility] Co de Phone Number [facility] [address] [place] [address] * (ABNORMAL) Phosphorus, Plasma (07/14/2025 9:36 AM EDT) Phosphorus, Plasma 2.2(L) 2.5 - 4.5 mg/dL 07/14/2025 10:15 AM EDT [facility] Blood Venous blood specimen / Unknown Venipuncture / Unknown 07/14/2025 9:36 AM EDT 07/14/2025 9:44 AM EDT us Anne Franco MD LAB BLOOD ORDERABLES Sarah l Result [facility] [address] [place] [address] * (ABNORMAL) CBC W/O Differential (07/14/2025 9:36 AM EDT) WBC Count 21.20(H) 3.70 - 10.30 10*3/uL LAB HEMATOLOGY METHOD 07/14/2025 9:52 AM EDT [facility] RBC Count 3.37(L) 3.90 - 5.20 10*6/uL LAB HEMATOLOGY METHOD 07/14/2025 9:52 AM EDT [facility] HGB 9.2(L) 11.2 - 15.7 g/dL LAB HEMATOLOGY METHOD 07/14/2025 9:52 AM EDT [facility] HCT 29.4(L) 34.0 - 45.0 % LAB HEMATOLOGY METHOD 07/14/2025 9:52 AM EDT [facility] Platelet Count 314 155 - 369 10*3/uL LAB HEMATOLOGY METHOD 07/14/2025 9:52 AM EDT [facility] MCV 87 79 - 98 fL LAB HEMATOLOGY METHOD 07/14/2025 9:52 AM EDT [facility] MCH 27.3 26.0 - 32.0 pg LAB HEMATOLOGY METHOD 07/14/2025 9:52 AM EDT [facility] MCHC 31.3 30.7 - 35.5 g/dL LAB HEMATOLOGY METHOD 07/14/2025 9:52 AM EDT [facility] RDW 17.2(H) 11.5 - 14.5 % LAB HEMATOLOGY METHOD 07/14/2025 9:52 AM EDT [facility] MPV 10.2 8.8 - 12.5 fL LAB HEMATOLOGY METHOD 07/14/2025 9:52 AM EDT [facility] nRBC 0.1(H) <=0.0 per 100 WBCs LAB HEMATOLOGY METHOD 07/14/2025 9:52 AM EDT [facility] Blood Venous blood specimen / Unknown Venipuncture / Unknown 07/14/2025 9:36 AM EDT 07/14/2025 9:44 AM EDT us Anne Franco MD LAB BLOOD ORDERABLES Sarah l Result [facility] [address] [place] [address] * (ABNORMAL) POCT glucose meter (07/14/2025 8:39 AM EDT) POCT Glucose 185(H) 74 - 99 mg/dL 07/14/2025 8:[address] [facility] Comment:Accuracy of a glucos [...] Comment 07/14/2025 8:41 AM EDT [facility] [place] ID Laura Baez 025 8:41 AM EDT [facility]ALTH[facility] LAB Device ID [id number] 07/14/2025 8:41 AM EDT [facility] Specimen Type POC Capillary 07/14/2025 8:41 AM EDT [facility] Blood Capillary blood specimen / Unknown 07/14/2025 8:39 AM EDT 07/14/2025 8:41 AM EDT us Anne Franco MD LAB POINT OF CARE TEST DOCKED DEVICE UNSOLICITED RESULTS Final Result Performing Organization Address City/State/[facility] Co de Phone Number [facility] [address] [place] [address] * (ABNORMAL) POCT glucose meter (07/14/2025 6:18 [...] Comment 07/14/2025 6:20 AM EDT [facility] [place] ID Rita Alejandro 6:20 AM EDT [facility] Device ID [id number] 07/14/2025 6:20 AM EDT [facility] Specimen Type POC Capillary 07/14/2025 6:20 AM EDT [facility] Blood Capillary blood specimen / Unknown 07/14/2025 6:18 AM EDT 07/14/2025 6:20 AM EDT us Anne Franco MD LAB POINT OF CARE TEST DOCKED DEVICE UNSOLICITED RESULTS Final Result [facility] [address] [place] [address] * (ABNORMAL) POCT glucose meter (07/13/2025 9:18 [...] for testing. Comment 07/13/2025 9:[address] [facility] [place] ID Yenny Tong 025 9:[address] [facility] Device ID [id number] 07/13/2025 9:[address] [facility] Specimen Type POC Capillary 07/13/2025 9:[address] [facility] Blood Capillary blood specimen / Unknown 07/13/2025 9:18 PM EDT 07/13/2025 9:19 PM EDT us Anne Franco MD LAB POINT OF CARE TEST DOCKED DEVICE UNSOLICITED RESULTS Final Result Performing Organization Address City/[facility]/ZIP Co de Phone Number [facility] [address] [place] [address] * (ABNORMAL) POCT glucose meter (07/13/2025 6:01 [...] Comment 07/13/2025 6:02 PM EDT [facility] [place] ID Laura Baez 025 6:02 PM EDT [facility] Device ID [id number] 07/13/2025 6:02 PM EDT [facility] Specimen Type POC Capillary 07/13/2025 6:02 PM EDT [facility] Blood Capillary blood specimen / Unknown 07/13/2025 6:01 PM EDT 07/13/2025 6:02 PM EDT Anne Franco MD LAB POINT OF CARE TEST DOCKED DEVICE UNSOLICITED RESULTS Final Result Performing Organization Address City/[facility]/ZIP Co de Phone Number [facility] [address] [place] [address] * (ABNORMAL) POCT glucose meter (07/13/2025 12:12 [...] Comment 07/13/2025 12:14 PM EDT [facility] [place] ID Laura Baez 025 12:14 PM EDT [facility] Device ID [id number] 07/13/2025 12:14 PM EDT [facility] Specimen Type POC Capillary 07/13/2025 12:14 PM EDT [facility] Blood Capillary blood specimen / Unknown 07/13/2025 12:12 PM EDT 07/13/2025 12:14 PM EDT Anne Franco MD LAB POINT OF CARE TEST DOCKED DEVICE UNSOLICITED RESULTS Final Result Performing Organization Address City/[facility]/ZIP Co de Phone Number [facility] [address] [place] [address] * (ABNORMAL) Phosphorus (07/13/2025 10:21 AM EDT) Phosphorus, Plasma 2.2(L) 2.5 - 4.5 mg/dL 07/13/2025 11:23 AM EDT [facility] Blood Venous blood specimen / Unknown Venipuncture / Unknown 07/13/2025 10:21 AM EDT 07/13/2025 10:31 AM EDT Luanne Crawford MD LAB BLOOD ORDERABLES Final Result Performing Organization Address [facility]/ZIP Co de Phone Number [facility] [address] [place] [address] * (ABNORMAL) Magnesium, Plasma (07/13/2025 10:21 AM EDT) Magnesium, Plasma 1.7(L) 1.9 - 2.4 mg/dL 07/13/2025 11:23 AM EDT [facility] Blood Venous blood specimen / Unknown Venipuncture / Unknown 07/13/2025 10:21 AM EDT 07/13/2025 10:31 AM EDT Luanne Crawford MD LAB BLOOD ORDERABLES Final Result Performing Organization Address [facility] Co de Phone Number [facility] [address] [place] [address] * (ABNORMAL) Basic Metabolic Panel, Plasma (07/13/2025 10:21 AM EDT) Glucose, Plasma 135(H) 74 - 99 mg/dL 07/13/2025 11:23 AM EDT [facility] BUN, Plasma 22(H) 7 - 21 mg/dL 07/13/2025 11:23 AM EDT [facility] Creatinine, Plasma 0.62 0.60 - 1.10 mg/dL 07/13/2025 11:23 AM EDT [facility] BUN/Creatinine Ratio 35 07/13/2025 11:23 AM EDT [facility] Sodium, Plasma 138 136 - 145 mmol/L 07/13/2025 11:23 AM EDT [facility] Potassium, Plasma 3.7 3.6 - 4.9 mmol/L 07/13/2025 11:23 AM EDT [facility] Chloride, Plasma 95(L) 97 - 107 mmol/L 07/13/2025 11:23 AM EDT [facility] CO2, Plasma 30(H) 22 - 29 mmol/L 07/13/2025 11:23 AM EDT [facility] Anion Gap 13 6 - 16 mmol/L 07/13/2025 11:23 AM EDT [facility] Total Calcium, Plasma 9.0 8.9 - 10.2 mg/dL 07/13/2025 11:23 AM EDT [facility] eGFRcr 109.3 mL/min/1.7 3m*2 07/13/2025 11:23 AM EDT [facility] Comment:Reported eGFRcr in m L/min/1.73m2 is based the CKD-EPI 2020 equation that does not use a race coefficient. Blood Venous blood specimen / Unknown Venipuncture / Unknown 07/13/2025 10:21 AM EDT 07/13/2025 10:31 AM EDT us Luanne Crawford MD LAB BLOOD ORDERABLES Final Result [facility] [address] [place] [address] * (ABNORMAL) CBC W/O Differential (07/13/2025 10:21 AM EDT) WBC Count 19.56(H) 3.70 - 10.30 10*3/uL LAB HEMATOLOGY METHOD 07/13/2025 10:59 AM EDT [facility] RBC Count 3.67(L) 3.90 - 5.20 10*6/uL LAB HEMATOLOGY METHOD 07/13/2025 10:59 AM EDT [facility] HGB 10.2(L) 11.2 - 15.7 g/dL LAB HEMATOLOGY METHOD 07/13/2025 10:59 AM EDT [facility] HCT 32.3(L) 34.0 - 45.0 % LAB HEMATOLOGY METHOD 07/13/2025 10:59 AM EDT [facility] Platelet Count 296 155 - 369 10*3/uL LAB HEMATOLOGY METHOD 07/13/2025 10:59 AM EDT [facility] MCV 88 79 - 98 fL LAB HEMATOLOGY METHOD 07/13/2025 10:59 AM EDT [facility] MCH 27.8 26.0 - 32.0 pg LAB HEMATOLOGY METHOD 07/13/2025 10:59 AM EDT [facility] MCHC 31.6 30.7 - 35.5 g/dL LAB HEMATOLOGY METHOD 07/13/2025 10:59 AM EDT [facility] RDW 17.6(H) 11.5 - 14.5 % LAB HEMATOLOGY METHOD 07/13/2025 10:59 AM EDT [facility] MPV 10.3 8.8 - 12.5 fL LAB HEMATOLOGY METHOD 07/13/2025 10:59 AM EDT [facility] nRBC 0.0 <=0.0 per 100 WBCs LAB HEMATOLOGY METHOD 07/13/2025 10:59 AM EDT [facility] [facility] Blood Venous blood specimen / Unknown Venipuncture / Unknown 07/13/2025 10:21 AM EDT 07/13/2025 10:31 AM EDT Luanne Crawford MD LAB BLOOD ORDERABLES Final Result [facility] [address] [place] [address] * (ABNORMAL) POCT glucose meter (07/13/2025 8:50 [...] Comment 07/13/2025 8:53 AM EDT [facility] [place] ID BaezLaura 025 8:53 AM EDT [facility] LAB Device ID [id number] 07/13/2025 8:53 AM EDT [facility] Specimen Type POC Capillary 07/13/2025 8:53 AM EDT [facility] Blood Capillary blood specimen / Unknown 07/13/2025 8:50 AM EDT 07/13/2025 8:53 AM EDT Anne Franco MD LAB POINT OF CARE TEST DOCKED DEVICE UNSOLICITED RESULTS Final Result Performing Organization Address City/[facility] Co de Phone Number HEALTHCARE LAB [address] [place] [address] * (ABNORMAL) POCT glucose meter (07/13/2025 6:11 [...] 07/13/2025 6:13 AM EDT [facility] [place] ID Rita Alejandro 6:13 AM EDT [facility] Device ID [id number] 07/13/2025 6:13 AM EDT [facility] Specimen Type POC Capillary 07/13/2025 6:13 AM EDT [facility] LAB Blood Capillary blood specimen / Unknown 07/13/2025 6:11 AM EDT 07/13/2025 6:13 AM EDT us Anne Franco MD LAB POINT OF CARE TEST DOCKED DEVICE UNSOLICITED RESULTS Final Result Performing Organization Address City/[facility] Co de Phone Number [facility] [address] [place] [address] * (ABNORMAL) POCT glucose meter (07/12/2025 9:28 [...] Comment 07/12/2025 9:30 PM EDT [facility] [place] ID Yenny Tong 025 9:30 PM EDT [facility] LAB Device ID [id number] 07/12/2025 9:30 PM EDT [facility] LAB Specimen Type POC Capillary 07/12/2025 9:30 PM EDT [facility] Blood Capillary blood specimen / Unknown 07/12/2025 9:28 PM EDT 07/12/2025 9:30 PM EDT Anne Franco MD LAB POINT OF CARE TEST DOCKED DEVICE UNSOLICITED RESULTS Final Result [facility] [address] [place] [address] * (ABNORMAL) POCT glucose meter (07/12/2025 6:04 PM EDT) [facility] POCT Glucose 129(H) 74 - 99 mg/dL [...] Comment 07/12/2025 6:06 PM EDT [facility] [place] ID Jeana Bear 07/12/2025 6:06 PM EDT HEALTHCARE LAB Device ID [id number] 07/12/2025 6:06 PM EDT [facility] LAB Specimen Type POC Capillary 07/12/2025 6:06 PM EDT [facility] Blood Capillary blood specimen / Unknown 07/12/2025 6:04 PM EDT 07/12/2025 6:06 PM EDT Anne Franco MD LAB POINT OF CARE TEST DOCKED DEVICE UNSOLICITED RESULTS Final Result [facility] [address] [place] [address] * PERIPHERAL IV (SMARTFORM LINK) (07/12/2025 3:51 [...] 07/12/2025 11:56 AM EDT [facility] [place] ID Jeana Bear 07/12/2025 11:56 AM EDT [facility] Device ID [id number] 07/12/2025 11:56 AM EDT [facility] Specimen Type POC Capillary 07/12/2025 11:56 AM EDT [facility]ALTH[facility] Blood Capillary blood specimen / Unknown 07/12/2025 11:55 AM EDT 07/12/2025 11:56 AM EDT Dorcas Hennessy MD LAB POINT OF CARE TE ST DOCKED DEVICE UNSOLICITED RESULTS Final Result [facility] [address] [place] [address] * XR Chest 1 View (07/12/2025 11:11 [...] Comment 07/12/2025 8:42 AM EDT [facility] [place] ID Jeana Bear 07/12/2025 8:42 AM EDT [facility]ARE LAB Device ID [id number] 07/12/2025 8:42 AM EDT [facility]ALTH[facility]ARE LAB Specimen Type POC Capillary 07/12/2025 8:[address] [facility] Blood Capillary blood specimen / Unknown 07/12/2025 8:41 AM EDT 07/12/2025 8:42 AM EDT us Dorcas Hennessy MD LAB POINT OF CARE TE ST DOCKED DEVICE UNSOLICITED RESULTS Final Result Performing Organization Address City/[facility]/ZIP Co de Phone Number [facility] [address] [place] [address] * Phosphorus (07/12/2025 12:25 AM EDT) [facility] Phosphorus, Plasma 2.9 2.5 - 4.5 mg/dL 07/12/2025 1:22 AM EDT [facility] Blood Venous blood specimen / Unknown Venipuncture / Unknown 07/12/2025 12:25 AM EDT 07/12/2025 12:52 AM EDT us Luanne Crawford MD LAB BLOOD ORDERABLES Final Result [facility] [address] [place] [address] * Magnesium, Plasma (07/12/2025 12:25 AM EDT) [facility] Magnesium, Plasma 2.0 1.9 - 2.4 mg/dL 07/12/2025 1:22 AM EDT [facility] Blood Venous blood specimen / Unknown Venipuncture / Unknown 07/12/2025 12:25 AM EDT 07/12/2025 12:52 AM EDT us Luanne Crawford MD LAB BLOOD ORDERABLES Final Result [facility] [address] [place] [address] * (ABNORMAL) Basic Metabolic Panel, Plasma (07/12/2025 12:25 AM EDT) Glucose, Plasma 92 74 - 99 mg/dL 07/12/2025 1:22 AM EDT [facility] BUN, Plasma 18 7 - 21 mg/dL 07/12/2025 1:22 AM EDT [facility] Creatinine, Plasma 0.84 0.60 - 1.10 mg/dL 07/12/2025 1:22 AM EDT [facility] BUN/Creatinine Ratio 21 07/12/2025 1:22 AM EDT [facility] Sodium, Plasma 142 136 - 145 mmol/L 07/12/2025 1:22 AM EDT [facility] Potassium, Plasma 3.6 3.6 - 4.9 mmol/L 07/12/2025 1:22 AM EDT [facility] Chloride, Plasma 103 97 - 107 mmol/L 07/12/2025 1:22 AM EDT [facility] CO2, Plasma 31(H) 22 - 29 mmol/L 07/12/2025 1:22 AM EDT [facility] Anion Gap 8 6 - 16 mmol/L 07/12/2025 1:22 AM EDT [facility] Total Calcium, Plasma 8.8(L) 8.9 - 10.2 mg/dL 07/12/2025 1:22 AM EDT [facility] eGFRcr 85.3 mL/min/1.7 3m*2 07/12/2025 1:22 AM EDT [facility] Comment:Reported eGFRcr in m L/min/1.73m2 is based the CKD-EPI 2020 equation that does not use a race coefficient. Blood Venous blood specimen / Unknown Venipuncture / Unknown 07/12/2025 12:25 AM EDT 07/12/2025 12:52 AM EDT us Luanne Crawford MD LAB BLOOD ORDERABLES Final Result [facility] [address] [place] [address] * (ABNORMAL) CBC W/O Differential (07/12/2025 12:25 AM EDT) WBC Count 15.81(H) 3.70 - 10.30 10*3/uL LAB HEMATOLOGY METHOD 07/12/2025 1:05 AM EDT [facility] RBC Count 3.39(L) 3.90 - 5.20 10*6/uL LAB HEMATOLOGY METHOD 07/12/2025 1:05 AM EDT [facility] HGB 9.3(L) 11.2 - 15.7 g/dL LAB HEMATOLOGY METHOD 07/12/2025 1:05 AM EDT [facility] HCT 29.8(L) 34.0 - 45.0 % LAB HEMATOLOGY METHOD 07/12/2025 1:05 AM EDT [facility] Platelet Count 276 155 - 369 10*3/uL LAB HEMATOLOGY METHOD 07/12/2025 1:05 AM EDT [facility] MCV 88 79 - 98 fL LAB HEMATOLOGY METHOD 07/12/2025 1:05 AM EDT [facility] MCH 27.4 26.0 - 32.0 pg LAB HEMATOLOGY METHOD 07/12/2025 1:05 AM EDT [facility] MCHC 31.2 30.7 - 35.5 g/dL LAB HEMATOLOGY METHOD 07/12/2025 1:05 AM EDT [facility] RDW 18.0(H) 11.5 - 14.5 % LAB HEMATOLOGY METHOD 07/12/2025 1:05 AM EDT [facility] MPV 10.5 8.8 - 12.5 fL LAB HEMATOLOGY METHOD 07/12/2025 1:05 AM EDT [facility] nRBC 0.0 <=0.0 per 100 WBCs LAB HEMATOLOGY METHOD 07/12/2025 1:05 AM EDT [facility] Blood Venous blood specimen / Unknown Venipuncture / Unknown 07/12/2025 12:25 AM EDT 07/12/2025 12:55 AM EDT us Luanne Crawford MD LAB BLOOD ORDERABLES Final Result Performing Organization Address City/[facility]/ZIP Co de Phone Number [facility] [address] [place] [address] * (ABNORMAL) POCT Glucose (if patient NPO, on TPN or continuous nutrition) (07/11/2025 8:45 PM EDT) POCT Glucose 119(A) 74 - 99 mg/dL [facility] Test Strip Lot Number \[id number]\ HEALTHCARE LAB Test Strip Expiration 09/24/2026 [facility] Blood Venous blood specimen / Unknown 07/11/2025 8:45 PM EDT us Dorcas Hennessy MD POINT OF CARE TEST ENTER/EDIT OR DERABLES Final Result Performing Organization Address [facility] Co de Phone Number HEALTHCARE LAB [address] [place] [phone] * (ABNORMAL) POCT Glucose - Before Meals and Bedtime (07/11/2025 8:43 PM EDT) POCT Glucose 119(A) 74 - 99 mg/dL [facility] Test Strip Lot Number [id number] [facility]ARE LAB Test Strip Expiration 09/24/2026 [facility] Blood Venous blood specimen / Unknown 07/11/2025 8:43 PM EDT us Dorcas Hennessy MD POINT OF CARE TEST ENTER/EDIT OR DERABLES Final Result Performing Organization Address City/[facility]/ZIP Co de Phone Number HEALTHCARE LAB [address] [place] [address] * (ABNORMAL) POCT glucose meter (07/11/2025 8:42 [...] 07/11/2025 8:43 PM EDT [facility] [place] ID Jf Cruz 07/11/2025 8:43 PM EDT [facility] Device ID [id number] 07/11/2025 8:43 PM EDT [facility]ALTH[facility]ARE LAB Specimen Type POC Capillary 07/11/2025 8:43 PM EDT [facility] Blood Capillary blood specimen / Unknown 07/11/2025 8:42 PM EDT 07/11/2025 8:43 PM EDT Dorcas Hennessy MD LAB POINT OF CARE TE ST DOCKED DEVICE UNSOLICITED RESULTS Final Result Performing Organization Address City/State/[facility] Co de Phone Number HEALTHCARE LAB [address] [place] [address] * (ABNORMAL) POCT glucose meter (07/11/2025 5:38 PM EDT) [facility] POCT Glucose 142(H) 74 - 99 mg/dL [...] 07/11/2025 5:40 PM EDT [facility] [place] ID Ayana Amato 07/11/2025 5:40 PM EDT [facility] Device ID [id number] 07/11/2025 5:40 PM EDT [facility] Specimen Type POC Capillary 07/11/2025 5:40 PM EDT [facility] Blood Capillary blood specimen / Unknown 07/11/2025 5:38 PM EDT 07/11/2025 5:40 PM EDT Dorcas Hennessy MD LAB POINT OF CARE TE ST DOCKED DEVICE UNSOLICITED RESULTS Final Result Performing Organization Address City/[facility] Co de Phone Number [facility]ARE LAB [address] [place] [address] * (ABNORMAL) POCT glucose meter (07/11/2025 3:36 [...] Comment 07/11/2025 3:38 PM EDT [facility] [place] ID Radha Frias 07/11/20 3:38 PM EDT [facility] LAB Device ID [id number] 07/11/2025 3:38 PM EDT [facility]ALTH[facility] LAB Specimen Type POC Venous 07/11/2025 3:38 PM EDT [facility] Blood Venous blood specimen / Unknown 07/11/2025 3:36 PM EDT 07/11/2025 3:38 PM EDT us Dorcas Hennessy MD LAB POINT OF CARE TE ST DOCKED DEVICE UNSOLICITED RESULTS Final Result Performing Organization Address City/[facility] Co de Phone Number [facility] [address] [place] [address] * (ABNORMAL) POCT glucose meter (07/11/2025 1:52 [...] Comment 07/11/2025 1:54 PM EDT [facility] [place] ID Ayana Amato 07/11/2025 1:54 PM EDT [facility]ALTH[facility]ARE LAB Device ID [id number] 07/11/2025 1:54 PM EDT [facility]ALTH[facility]ARE LAB Specimen Type POC Capillary 07/11/2025 1:54 PM EDT [facility] Blood Capillary blood specimen / Unknown 07/11/2025 1:52 PM EDT 07/11/2025 1:54 PM EDT us Dorcas Hennessy MD LAB POINT OF CARE TE ST DOCKED DEVICE UNSOLICITED RESULTS Final Result Performing Organization Address [facility] Co de Phone Number HE[facility]ARE LAB [address] [place] [address] * (ABNORMAL) POCT glucose meter (07/11/2025 12:12 PM EDT) [facility] POCT Glucose 154(H) 74 - 99 mg/dL [...] Comment 07/11/2025 12:13 PM EDT [facility] [place] ID Ayana Amato 07/11/2025 12:13 PM EDT HEALTH[facility]ARE LAB Device ID [id number] 07/11/2025 12:13 PM EDT [facility]ALTH[facility]ARE LAB Specimen Type POC Capillary 07/11/2025 12:13 PM EDT [facility] Blood Capillary blood specimen / Unknown 07/11/2025 12:12 PM EDT 07/11/2025 12:13 PM EDT us Luanne Crawford MD LAB POINT OF CARE TEST DOCKED DEVICE UNSOLICITED RESULTS Final Result Performing Organization Address City/[facility]/ZIP Co de Phone Number HE[facility]ARE LAB [address] [place] [address] * (ABNORMAL) POCT glucose meter (07/11/2025 9:57 [...] Comment 07/11/2025 9:59 AM EDT [facility] [place] ID Ayana Amato 07/11/2025 9:59 AM EDT HEALTH[facility]ARE LAB Device ID [id number] 07/11/2025 9:59 AM EDT HEALTHCARE LAB Specimen Type POC Capillary 07/11/2025 9:59 AM EDT [facility] Blood Capillary blood specimen / Unknown 07/11/2025 9:57 AM EDT 07/11/2025 9:59 AM EDT us Luanne Crawford MD LAB POINT OF CARE TEST DOCKED DEVICE UNSOLICITED RESULTS Final Result Performing Organization Address City/State/[facility] Co de Phone Number HEALTHCARE LAB [address] [place] [address] * [place] [facility], E/M 30-74 MINUTES (07/11/2025 8:41 [...] 07/11/2025 8:15 AM EDT [facility] [place] ID Ayana Amato 07/11/2025 8:15 AM EDT [facility] Device ID [id number] 07/11/2025 8:15 AM EDT HEALTHCARE LAB Specimen Type POC Capillary 07/11/2025 8:15 AM EDT [facility] Blood Capillary blood specimen / Unknown 07/11/2025 8:13 AM EDT 07/11/2025 8:15 AM EDT us Luanne Crawford MD LAB POINT OF CARE TEST DOCKED DEVICE UNSOLICITED RESULTS Final Result [facility] [address] [place] [address] * (ABNORMAL) POCT glucose meter (07/11/2025 6:03 AM EDT) [facility] POCT Glucose 135(H) 74 - 99 mg/dL [...] Comment 07/11/2025 6:05 AM EDT [facility] [place] ID Cheyanne Briceño 07/11/2025 6:05 AM EDT HEALTHCARE LAB Device ID [id number] 07/11/2025 6:05 AM EDT [facility] Specimen Type POC Capillary 07/11/2025 6:[address] [facility] Blood Capillary blood specimen / Unknown 07/11/2025 6:03 AM EDT 07/11/2025 6:05 AM EDT us Luanne Crawford MD LAB POINT OF CARE TEST DOCKED DEVICE UNSOLICITED RESULTS Final Result [facility] [address] [place] [address] * (ABNORMAL) POCT glucose meter (07/11/2025 4:04 AM EDT) [facility] POCT Glucose 107(H) 74 - 99 mg/dL [...] 07/11/2025 4:06 AM EDT [facility] [place] ID Cheaynne Briceño 07/11/2025 4:06 AM EDT [facility] Device ID [id number] 07/11/2025 4:06 AM EDT [facility]ALTH[facility]ARE LAB Specimen Type POC Capillary 07/11/2025 4:06 AM EDT [facility] Blood Capillary blood specimen / Unknown 07/11/2025 4:04 AM EDT 07/11/2025 4:06 AM EDT Luanne Crawford MD LAB POINT OF CARE TEST DOCKED DEVICE UNSOLICITED RESULTS Final Result Performing Organization Address City/[facility]/ZIP Co de Phone Number [facility]ALTH[facility]ARE LAB [address] [place] [address] * (ABNORMAL) POCT glucose meter (07/11/2025 2:02 AM EDT) [facility] POCT Glucose 130(H) 74 - 99 mg/dL [...] Comment 07/11/2025 2:03 AM EDT [facility] [place] ID Cheyanne Briceño 07/11/2025 2:03 AM EDT [facility]ALTH[facility]ARE LAB Device ID [id number] 07/11/2025 2:03 AM EDT [facility]ALTH[facility]ARE LAB Specimen Type POC Capillary 07/11/2025 2:[address] [facility] Blood Capillary blood specimen / Unknown 07/11/2025 2:02 AM EDT 07/11/2025 2:03 AM EDT us Luanne Crawford MD LAB POINT OF CARE TEST DOCKED DEVICE UNSOLICITED RESULTS Final Result Performing Organization Address City/[facility]/ZIP Co de Phone Number [facility] [address] [place] [address] * Phosphorus (07/11/2025 12:09 AM EDT) Phosphorus, Plasma 3.7 2.5 - 4.5 mg/dL 07/11/2025 12:54 AM EDT [facility] Blood Venous blood specimen / Unknown Venipuncture / Unknown 07/11/2025 12:09 AM EDT 07/11/2025 12:26 AM EDT us Luanne Crawford MD LAB BLOOD ORDERABLES Final Result Performing Organization Address [facility] Co de Phone Number [facility] [address] [place] [address] * (ABNORMAL) Magnesium, Plasma (07/11/2025 12:09 AM EDT) Magnesium, Plasma 1.8(L) 1.9 - 2.4 mg/dL 07/11/2025 12:54 AM EDT [facility] Blood Venous blood specimen / Unknown Venipuncture / Unknown 07/11/2025 12:09 AM EDT 07/11/2025 12:26 AM EDT us Luanne Crawford MD LAB BLOOD ORDERABLES Final Result Performing Organization Address [facility] Co [place] Phone Number [facility] [address] [place] [address] * (ABNORMAL) Basic Metabolic Panel, Plasma (07/11/2025 12:09 AM EDT) Glucose, Plasma 163(H) 74 - 99 mg/dL 07/11/2025 12:54 AM EDT [facility] BUN, Plasma 20 7 - 21 mg/dL 07/11/2025 12:54 AM EDT [facility] Creatinine, Plasma 0.99 0.60 - 1.10 mg/dL 07/11/2025 12:54 AM EDT [facility] BUN/Creatinine Ratio 20 07/11/2025 12:54 AM EDT [facility] Sodium, Plasma 141 136 - 145 mmol/L 07/11/2025 12:54 AM EDT [facility] Potassium, Plasma 3.8 3.6 - 4.9 mmol/L 07/11/2025 12:54 AM EDT [facility] Chloride, Plasma 104 97 - 107 mmol/L 07/11/2025 12:54 AM EDT [facility] CO2, Plasma 27 22 - 29 mmol/L 07/11/2025 12:54 AM EDT [facility] Anion Gap 10 6 - 16 mmol/L 07/11/2025 12:54 AM EDT [facility] Total Calcium, Plasma 9.1 8.9 - 10.2 mg/dL 07/11/2025 12:54 AM EDT [facility] eGFRcr 70.0 mL/min/1.7 3m*2 07/11/2025 12:54 AM EDT [facility] Comment:Reported eGFRcr in m L/min/1.73m2 is based the CKD-EPI 2020 equation that does not use a race coefficient. Blood Venous blood specimen / Unknown Venipuncture / Unknown 07/11/2025 12:09 AM EDT 07/11/2025 12:26 AM EDT us Luanne Crawford MD LAB BLOOD ORDERABLES Final Result [facility] [address] [place] [address] * (ABNORMAL) CBC W/O Differential (07/11/2025 12:09 AM EDT) WBC Count 13.23(H) 3.70 - 10.30 10*3/uL LAB HEMATOLOGY METHOD 07/11/2025 12:36 AM EDT [facility] RBC Count 3.65(L) 3.90 - 5.20 10*6/uL LAB HEMATOLOGY METHOD 07/11/2025 12:36 AM EDT [facility] HGB 10.1(L) 11.2 - 15.7 g/dL LAB HEMATOLOGY METHOD 07/11/2025 12:36 AM EDT [facility] HCT 32.1(L) 34.0 - 45.0 % LAB HEMATOLOGY METHOD 07/11/2025 12:36 AM EDT [facility] Platelet Count 270 155 - 369 10*3/uL LAB HEMATOLOGY METHOD 07/11/2025 12:36 AM EDT [facility] MCV 88 79 - 98 fL LAB HEMATOLOGY METHOD 07/11/2025 12:36 AM EDT [facility] MCH 27.7 26.0 - 32.0 pg LAB HEMATOLOGY METHOD 07/11/2025 12:36 AM EDT [facility] MCHC 31.5 30.7 - 35.5 g/dL LAB HEMATOLOGY METHOD 07/11/2025 12:36 AM EDT [facility] RDW 17.9(H) 11.5 - 14.5 % LAB HEMATOLOGY METHOD 07/11/2025 12:36 AM EDT [facility] MPV 10.7 8.8 - 12.5 fL LAB HEMATOLOGY METHOD 07/11/2025 12:36 AM EDT [facility] nRBC 0.0 <=0.0 per 100 WBCs LAB HEMATOLOGY METHOD 07/11/2025 12:36 AM EDT [facility] Blood Venous blood specimen / Unknown Venipuncture / Unknown 07/11/2025 12:09 AM EDT 07/11/2025 12:29 AM EDT us Luanne Crawford MD LAB BLOOD ORDERABLES Final Result [facility] [address] [place] [address] * (ABNORMAL) POCT glucose meter (07/11/2025 12:04 [...] Comment 07/11/2025 12:06 AM EDT [facility]ALTHCARE [facility] [place] ID Cheyanne Briceño 07/11/2025 12:06 AM EDT HEALTHCARE LAB Device ID [id number] 07/11/2025 12:06 AM EDT HEALTHCARE LAB Specimen Type POC Capillary 07/11/2025 12:[address] [facility] Blood Capillary blood specimen / Unknown 07/11/2025 12:04 AM EDT 07/11/2025 12:06 AM EDT us Luanne Crawford MD LAB POINT OF CARE TEST DOCKED DEVICE UNSOLICITED RESULTS Final Result Performing Organization Address [facility] Co de Phone Number HEALTHCARE LAB [address] [place] [address] * (ABNORMAL) POCT glucose meter (07/10/2025 10:02 [...] for testing. Comment 07/10/2025 10:[address] [facility] [place] ID Lidia Ugalde 07/10/2025 10:[address] [facility] Device ID [id number] 07/10/2025 10:[address] [facility] Specimen Type POC Capillary 07/10/2025 10:[address] [facility] Blood Capillary blood specimen / Unknown 07/10/2025 10:02 PM EDT 07/10/2025 10:03 PM EDT us Luanne Crawford MD LAB POINT OF CARE TEST DOCKED DEVICE UNSOLICITED RESULTS Final Result Performing Organization Address City/[facility] Co de Phone Number [facility]CARE LAB [address] [place] [address] * (ABNORMAL) Blood gas panel, arterial (07/10/2025 8:23 PM EDT) pH, Arterial 7.30(L) 7.35 - 7.45 LAB HEMATOLOGY METHOD 07/10/2025 8:40 PM EDT [facility] pCO2, Arterial 57(H) 35 - 48 mmHg LAB HEMATOLOGY METHOD 07/10/2025 8:40 PM EDT [facility] pO2, Arterial 80(L) 83 - 108 mmHg LAB HEMATOLOGY METHOD 07/10/2025 8:40 PM EDT [facility] SO2, Measured, Arterial 95 94 - 98 % LAB HEMATOLOGY METHOD 07/10/2025 8:40 PM EDT [facility] Base Excess, Arterial 1.1 -2.0 - 3.0 mmol/L LAB HEMATOLOGY METHOD 07/10/2025 8:40 PM EDT [facility] Bicarbonate, Calculated, Arterial 28(H) 22 - 26 mmol/L LAB HEMATOLOGY METHOD 07/10/2025 8:40 PM EDT [facility] Hematocrit, Whole Blood 31.5(L) 34.0 - 45.0 % LAB HEMATOLOGY METHOD 07/10/2025 8:40 PM EDT [facility] Sodium, Whole Blood 138 136 - 145 mmol/L LAB HEMATOLOGY METHOD 07/10/2025 8:40 PM EDT [facility] Potassium, Whole Blood 3.9 3.6 - 4.9 mmol/L LAB HEMATOLOGY METHOD 07/10/2025 8:40 PM EDT [facility] Chloride, Whole Blood 103 97 - 107 mmol/L LAB HEMATOLOGY METHOD 07/10/2025 8:40 PM EDT [facility] Glucose, Whole Blood 206(H) 74 - 99 mg/dL LAB HEMATOLOGY METHOD 07/10/2025 8:40 PM EDT [facility] Ionized Calcium, Whole Blood 5.0 4.6 - 5.1 mg/dL LAB HEMATOLOGY METHOD 07/10/2025 8:40 PM EDT [facility] Lactate, Arterial, Whole Blood 1.7(H) 0.5 - 1.6 mmol/L LAB HEMATOLOGY METHOD 07/10/2025 8:40 PM EDT [facility] Blood Arterial blood specimen / Unknown Arterial Puncture / Unknown 07/10/2025 8:23 PM EDT 07/10/2025 8:35 PM EDT us Luanne Crawford MD LAB BLOOD ORDERABLES Final Result [facility] [address] [place] [address] * (ABNORMAL) POCT glucose meter (07/10/2025 8:03 [...] 07/10/2025 8:05 PM EDT [facility] [place] ID Cheyanne Briceño 07/10/2025 8:05 PM EDT [facility] Device ID [id number] 07/10/2025 8:05 PM EDT [facility] Specimen Type POC Capillary 07/10/2025 8:05 PM EDT [facility] Blood Capillary blood specimen / Unknown 07/10/2025 8:03 PM EDT 07/10/2025 8:05 PM EDT us Luanne Crawford MD LAB POINT OF CARE TEST DOCKED DEVICE UNSOLICITED RESULTS Final Result [facility] [address] [place] [address] * (ABNORMAL) POCT glucose meter (07/10/2025 6:22 PM EDT) [facility] POCT Glucose 150(H) 74 - 99 mg/dL [...] 07/10/2025 6:25 PM EDT [facility] [place] ID Zara Segovia 025 6:25 PM EDT [facility] Device ID [id number] 07/10/2025 6:25 PM EDT [facility] Specimen Type POC Capillary 07/10/2025 6:25 PM EDT [facility] Blood Capillary blood specimen / Unknown 07/10/2025 6:22 PM EDT 07/10/2025 6:25 PM EDT us Luanne Crawford MD LAB POINT OF CARE TEST DOCKED DEVICE UNSOLICITED RESULTS Final Result Performing Organization Address [facility] Co de Phone Number [facility] [address] [place] [address] * (ABNORMAL) POCT glucose meter (07/10/2025 2:17 [...] Comment 07/10/2025 2:19 PM EDT [facility] [place] ID Zara Segovia 025 2:[address] [facility] Device ID [id number] 07/10/2025 2:[address] [facility] [facility] Specimen Type POC Arterial 07/10/2025 2:[address] [facility] Blood Arterial blood specimen / Unknown 07/10/2025 2:17 PM EDT 07/10/2025 2:19 PM EDT us Luanne Crawford MD LAB POINT OF CARE TEST DOCKED DEVICE UNSOLICITED RESULTS Final Result Performing Organization Address City/[facility] Co de Phone Number [facility] [address] [place] [address] * XR Abdomen 1 View (07/10/2025 12:03 [...] of the abdomen. COMPARISON: None. FINDINGS: Limited [id number] abdominal radiograph for the purpose of locating tube position. The tip of the nasogastric tube is within the mid stomach. Procedure Note Bernabe Sen MD - 07/10/2025 CLINICAL INDICATION: feeding tube placement TECHNIQUE: Supine radiograph of the abdomen. COMPARISON: None. FINDINGS: Limited [id number] abdominal radiograph for the purpose of locatingtube [...] 07/10/2025 12:02 PM EDT [facility] [place] ID Segovia, Symantha F 025 12:02 PM EDT [facility] Device ID [id number] 07/10/2025 12:02 PM EDT [facility] Specimen Type POC Arterial 07/10/2025 12:02 PM EDT [facility] Blood Arterial blood specimen / Unknown 07/10/2025 12:00 PM EDT 07/10/2025 12:02 PM EDT us Luanne Crawford MD LAB POINT OF CARE TEST DOCKED DEVICE UNSOLICITED RESULTS Final Result Performing Organization Address City/[facility] Co de Phone Number [facility] [address] [place] [address] * (ABNORMAL) POCT glucose meter (07/10/2025 9:50 [...] Comment 07/10/2025 9:52 AM EDT [facility] [place] ID Segovia, Symleandraa F 025 9:52 AM EDT [facility] Device ID [id number] 07/10/2025 9:52 AM EDT [facility] Specimen Type POC Arterial 07/10/2025 9:[address] [facility] Blood Arterial blood specimen / Unknown 07/10/2025 9:50 AM EDT 07/10/2025 9:52 AM EDT us Luanne Crawford MD LAB POINT OF CARE TEST DOCKED DEVICE UNSOLICITED RESULTS Final Result Performing Organization Address City/[facility] Co de Phone Number [facility] [address] [place] [address] * ECG Adult (07/10/2025 8:42 AM EDT) EKG DIAGNOSIS CLASS Abnormal MUSE ECG Ventricular Rate 79 BPM MUSE ECG Atrial Rate 79 BPM MUSE ECG TN Interval 188 ms MUSE ECG QRSD Interval 90 ms MUSE ECG QT Interval 354 ms MUSE ECG QTC Interval 405 ms MUSE ECG P [place] 44 degrees MUSE ECG R [place] 17 degrees MUSE ECG T Wave [place] 27 degrees MUSE ECG Diagnosis Sinus rhythm with frequent premature ventricular complexes MUSE ECG Diagnosis Low voltage QRS MUSE ECG Diagnosis Cannot rule out Anterior infarct , age undetermined MUSE ECG Diagnosis MUSE ECG Diagnosis MUSE ECG Diagnosis Confirmed by Octavio Walsh ([id number]) on 07/10/2025 11:49:20 AM MUSE ECG 07/10/2025 8:42 AM EDT 07/10/2025 11:49 AM EDT us Luanne Crawford MD ECG ORDERABLES Final Resu lt MUSE ECG * [place] CRITICAL CARE, E/M 30-74 MINUTES (07/10/2025 8:15 [...] glucose meter (07/10/2025 8:04 AM EDT) Pathologist [facility] POCT Glucose 163(H) 74 - 99 mg/dL [...] Comment 07/10/2025 9:22 AM EDT [facility] [place] ID Zara Segovia 025 9:22 AM EDT [facility]ALTH[facility] LAB Device ID [id number] 07/10/2025 9:22 AM EDT [facility] Specimen Type POC Arterial 07/10/2025 9:22 AM EDT [facility] Blood Arterial blood specimen / Unknown 07/10/2025 8:04 AM EDT 07/10/2025 9:22 AM EDT us Luanne Crawford MD LAB POINT OF CARE TEST DOCKED DEVICE UNSOLICITED RESULTS Final Result Performing Organization Address City/State/[facility] Co de Phone Number [facility] [address] [place] [address] * (ABNORMAL) POCT glucose meter (07/10/2025 6:04 AM EDT) [facility] POCT Glucose 187(H) 74 - 99 mg/dL [...] 07/10/2025 6:05 AM EDT [facility] [place] ID Cheyanne Briceño 07/10/2025 6:05 AM EDT [facility]ALTH[facility] LAB Device ID [id number] 07/10/2025 6:05 AM EDT [facility] Specimen Type POC Arterial 07/10/2025 6:05 AM EDT [facility] Blood Arterial blood specimen / Unknown 07/10/2025 6:04 AM EDT 07/10/2025 6:05 AM EDT us Luanne Crawford MD LAB POINT OF CARE TEST DOCKED DEVICE UNSOLICITED RESULTS Final Result Performing Organization Address City/[facility] Co de Phone Number [facility] [address] [place] [address] * (ABNORMAL) POCT glucose meter (07/10/2025 3:59 [...] Comment 07/10/2025 4:01 AM EDT [facility] [place] ID Cheyanne Briceño 07/10/2025 4:01 AM EDT [facility] Device ID [id number] 07/10/2025 4:[address] [facility] Specimen Type POC Arterial 07/10/2025 4:[address] [facility] Blood Arterial blood specimen / Unknown 07/10/2025 3:59 AM EDT 07/10/2025 4:01 AM EDT us Luanne Crawford MD LAB POINT OF CARE TEST DOCKED DEVICE UNSOLICITED RESULTS Final Result Performing Organization Address City/[facility]/ZIP Co de Phone Number [facility] [address] [place] [address] * (ABNORMAL) POCT glucose meter (07/10/2025 3:01 [...] Comment 07/10/2025 3:03 AM EDT [facility] [place] ID Cheyanne Briceño 07/10/2025 3:03 AM EDT [facility] Device ID [id number] 07/10/2025 3:03 AM EDT [facility] Specimen Type POC Arterial 07/10/2025 3:03 AM EDT [facility] Blood Arterial blood specimen / Unknown 07/10/2025 3:01 AM EDT 07/10/2025 3:03 AM EDT us Lunane Crawford MD LAB POINT OF CARE TEST DOCKED DEVICE UNSOLICITED RESULTS Final Result Performing Organization Address City/State/[facility] Co de Phone Number [facility] [address] [place] [address] * (ABNORMAL) POCT glucose meter (07/10/2025 2:03 [...] Comment 07/10/2025 2:04 AM EDT [facility] [place] ID Cheyanne Briceño 07/10/2025 2:04 AM EDT [facility] Device ID [id number] 07/10/2025 2:04 AM EDT [facility] Specimen Type POC Arterial 07/10/2025 2:04 AM EDT [facility] Blood Arterial blood specimen / Unknown 07/10/2025 2:03 AM EDT 07/10/2025 2:04 AM EDT us Luanne Crawford MD LAB POINT OF CARE TEST DOCKED DEVICE UNSOLICITED RESULTS Final Result Performing Organization Address City/[facility]/ZIP Co de Phone Number [facility] [address] [place] [address] * (ABNORMAL) POCT glucose meter (07/10/2025 12:59 AM EDT) [facility] POCT Glucose 158(H) 74 - 99 mg/dL 07/10/2025 1:[address] [facility] Comment:Accuracy of a glucos [...] for testing. Comment 07/10/2025 1:[address] [facility] [place] ID Cheyanne Briceño 07/10/2025 1:[address] [facility] Device ID [id number] 07/10/2025 1:[address] [facility] Specimen Type POC Arterial 07/10/2025 1:[address] [facility] Blood Arterial blood specimen / Unknown 07/10/2025 12:59 AM EDT 07/10/2025 1:00 AM EDT us Luanne Crawford MD LAB POINT OF CARE TEST DOCKED DEVICE UNSOLICITED RESULTS Final Result Performing Organization Address City/[facility] Co de Phone Number [facility] [address] [place] [address] * Phosphorus (07/10/2025 12:03 AM EDT) [facility] Phosphorus, Plasma 4.2 2.5 - 4.5 mg/dL 07/10/2025 12:40 AM EDT [facility] Blood Arterial blood specimen / Unknown Venipuncture / Unknown 07/10/2025 12:03 AM EDT 07/10/2025 12:10 AM EDT us Luanne Crawford MD LAB BLOOD ORDERABLES Final Result [facility] [address] [place] [address] * Magnesium, Plasma (07/10/2025 12:03 AM EDT) Magnesium, Plasma 2.1 1.9 - 2.4 mg/dL 07/10/2025 12:40 AM EDT [facility] Blood Arterial blood specimen / Unknown Venipuncture / Unknown 07/10/2025 12:03 AM EDT 07/10/2025 12:10 AM EDT us Luanne Crawford MD LAB BLOOD ORDERABLES Final Result [facility] [address] [place] [address] * (ABNORMAL) Basic Metabolic Panel, Plasma (07/10/2025 12:03 AM EDT) Glucose, Plasma 155(H) 74 - 99 mg/dL 07/10/2025 12:40 AM EDT [facility] BUN, Plasma 22(H) 7 - 21 mg/dL 07/10/2025 12:40 AM EDT [facility] Creatinine, Plasma 1.25(H) 0.60 - 1.10 mg/dL 07/10/2025 12:40 AM EDT [facility] BUN/Creatinine Ratio 18 07/10/2025 12:40 AM EDT [facility] Sodium, Plasma 134(L) 136 - 145 mmol/L 07/10/2025 12:40 AM EDT [facility] Potassium, Plasma 3.7 3.6 - 4.9 mmol/L 07/10/2025 12:40 AM EDT [facility] Chloride, Plasma 101 97 - 107 mmol/L 07/10/2025 12:40 AM EDT [facility] CO2, Plasma 25 22 - 29 mmol/L 07/10/2025 12:40 AM EDT [facility] Anion Gap 8 6 - 16 mmol/L 07/10/2025 12:40 AM EDT [facility] Total Calcium, Plasma 9.3 8.9 - 10.2 mg/dL 07/10/2025 12:40 AM EDT [facility] eGFRcr 52.9 mL/min/1.7 3m*2 07/10/2025 12:40 AM EDT [facility] Comment:Reported eGFRcr in m L/min/1.73m2 is based the CKD-EPI 2020 equation that does not use a race coefficient. Blood Arterial blood specimen / Unknown Venipuncture / Unknown 07/10/2025 12:03 AM EDT 07/10/2025 12:10 AM EDT us Luanne Crawford MD LAB BLOOD ORDERABLES Final Result [facility] [address] [place] [address] * (ABNORMAL) CBC W/O Differential (07/10/2025 12:03 AM EDT) WBC Count 17.64(H) 3.70 - 10.30 10*3/uL LAB HEMATOLOGY METHOD 07/10/2025 12:22 AM EDT [facility] RBC Count 3.83(L) 3.90 - 5.20 10*6/uL LAB HEMATOLOGY METHOD 07/10/2025 12:22 AM EDT [facility] HGB 10.6(L) 11.2 - 15.7 g/dL LAB HEMATOLOGY METHOD 07/10/2025 12:22 AM EDT [facility] HCT 33.3(L) 34.0 - 45.0 % LAB HEMATOLOGY METHOD 07/10/2025 12:22 AM EDT [facility] Platelet Count 309 155 - 369 10*3/uL LAB HEMATOLOGY METHOD 07/10/2025 12:22 AM EDT [facility] MCV 87 79 - 98 fL LAB HEMATOLOGY METHOD 07/10/2025 12:22 AM EDT [facility] MCH 27.7 26.0 - 32.0 pg LAB HEMATOLOGY METHOD 07/10/2025 12:22 AM EDT [facility] MCHC 31.8 30.7 - 35.5 g/dL LAB HEMATOLOGY METHOD 07/10/2025 12:22 AM EDT [facility] RDW 17.9(H) 11.5 - 14.5 % LAB HEMATOLOGY METHOD 07/10/2025 12:22 AM EDT [facility] MPV 10.3 8.8 - 12.5 fL LAB HEMATOLOGY METHOD 07/10/2025 12:22 AM EDT [facility] nRBC 0.0 <=0.0 per 100 WBCs LAB HEMATOLOGY METHOD 07/10/2025 12:22 AM EDT [facility] Blood Arterial blood specimen / Unknown Venipuncture / Unknown 07/10/2025 12:03 AM EDT 07/10/2025 12:11 AM EDT us Luanne Crawford MD LAB BLOOD ORDERABLES Final Result Performing Organization Address City/[facility] Co de Phone Number [facility] [address] [place] [address] * (ABNORMAL) POCT glucose meter (07/10/2025 12:02 [...] Comment 07/10/2025 12:04 AM EDT [facility] [place] ID Cheyanne Briceño 07/10/2025 12:04 AM EDT HEALTH[facility]ARE LAB Device ID [id number] 07/10/2025 12:04 AM EDT [facility]ALTH[facility] Specimen Type POC Arterial 07/10/2025 12:[address] [facility] Blood Arterial blood specimen / Unknown 07/10/2025 12:02 AM EDT 07/10/2025 12:04 AM EDT us Luanne Crawford MD LAB POINT OF CARE TEST DOCKED DEVICE UNSOLICITED RESULTS Final Result Performing Organization Address City/[facility]/ZIP Co de Phone Number [facility] [address] [place] [address] * (ABNORMAL) POCT glucose meter (07/09/2025 10:01 PM EDT) [facility] POCT Glucose 183(H) 74 - 99 mg/dL [...] 07/09/2025 10:04 PM EDT [facility] [place] ID Cheyanne Briceño 07/09/2025 10:04 PM EDT [facility]ALTH[facility] LAB Device ID [id number] 07/09/2025 10:04 PM EDT [facility] Specimen Type POC Arterial 07/09/2025 10:04 PM EDT [facility] Blood Arterial blood specimen / Unknown 07/09/2025 10:01 PM EDT 07/09/2025 10:04 PM EDT us Luanne Crawford MD LAB POINT OF CARE TEST DOCKED DEVICE UNSOLICITED RESULTS Final Result Performing Organization Address City/State/[facility] Co de Phone Number [facility] [address] [place] [address] * (ABNORMAL) POCT glucose meter (07/09/2025 8:09 PM EDT) [facility] POCT Glucose 188(H) 74 - 99 mg/dL [...] 07/09/2025 8:11 PM EDT [facility] [place] ID Cheyanne Briceño 07/09/2025 8:11 PM EDT [facility] Device ID [id number] 07/09/2025 8:11 PM EDT [facility] Specimen Type POC Capillary 07/09/2025 8:11 PM EDT [facility] Blood Capillary blood specimen / Unknown 07/09/2025 8:09 PM EDT 07/09/2025 8:11 PM EDT Luanne Crawford MD LAB POINT OF CARE TEST DOCKED DEVICE UNSOLICITED RESULTS Final Result Performing Organization Address [facility] Co de Phone Number [facility] [address] [place] [address] * (ABNORMAL) POCT glucose meter (07/09/2025 6:22 PM EDT) Pathologist [facility] POCT Glucose 151(H) 74 - 99 mg/dL [...] for testing. Comment 07/09/2025 6:[address] [facility] [place] ID Jeana Bear 07/09/2025 6:[address] [facility] Device ID [id number] 07/09/2025 6:[address] [facility] Specimen Type POC Capillary 07/09/2025 6:[address] [facility] Blood Capillary blood specimen / Unknown 07/09/2025 6:22 PM EDT 07/09/2025 6:24 PM EDT Luanne Crawford MD LAB POINT OF CARE TEST DOCKED DEVICE UNSOLICITED RESULTS Final Result Performing Organization Address City/[facility] Co de Phone Number [facility] [address] [place] [address] * (ABNORMAL) POCT glucose meter (07/09/2025 4:06 PM EDT) [facility] POCT Glucose 144(H) 74 - 99 mg/dL [...] Comment 07/09/2025 4:07 PM EDT [facility] [place] ID Jeana Bear 07/09/2025 4:07 PM EDT HEALTH[facility]ARE LAB Device ID [id number] 07/09/2025 4:07 PM EDT [facility] Specimen Type POC Capillary 07/09/2025 4:07 PM EDT [facility] Blood Capillary blood specimen / Unknown 07/09/2025 4:06 PM EDT 07/09/2025 4:07 PM EDT us Luanne Crawford MD LAB POINT OF CARE TEST DOCKED DEVICE UNSOLICITED RESULTS Final Result [facility] [address] [place] [address] * (ABNORMAL) Blood gas, arterial (07/09/2025 3:16 PM EDT) pH, Arterial 7.31(L) 7.35 - 7.45 LAB HEMATOLOGY METHOD 07/09/2025 3:40 PM EDT [facility] pCO2, Arterial 53(H) 35 - 48 mmHg LAB HEMATOLOGY METHOD 07/09/2025 3:40 PM EDT [facility] pO2, Arterial 153(H) 83 - 108 mmHg LAB HEMATOLOGY METHOD 07/09/2025 3:40 PM EDT [facility] SO2, Measured, Arterial 100(H) 94 - 98 % LAB HEMATOLOGY METHOD 07/09/2025 3:40 PM EDT [facility] Base Excess, Arterial -0.4 -2.0 - 3.0 mmol/L LAB HEMATOLOGY METHOD 07/09/2025 3:40 PM EDT [facility] Bicarbonate, Calculated, Arterial 26 22 - 26 mmol/L LAB HEMATOLOGY METHOD 07/09/2025 3:40 PM EDT [facility] Hematocrit, Whole Blood 30.6(L) 34.0 - 45.0 % LAB HEMATOLOGY METHOD 07/09/2025 3:40 PM EDT [facility] Sodium, Whole Blood 141 136 - 145 mmol/L LAB HEMATOLOGY METHOD 07/09/2025 3:40 PM EDT [facility] Potassium, Whole Blood 3.4(L) 3.6 - 4.9 mmol/L LAB HEMATOLOGY METHOD 07/09/2025 3:40 PM EDT [facility] Chloride, Whole Blood 107 97 - 107 mmol/L LAB HEMATOLOGY METHOD 07/09/2025 3:40 PM EDT [facility] Glucose, Whole Blood 141(H) 74 - 99 mg/dL LAB HEMATOLOGY METHOD 07/09/2025 3:40 PM EDT [facility] Ionized Calcium, Whole Blood 4.9 4.6 - 5.1 mg/dL LAB HEMATOLOGY METHOD 07/09/2025 3:40 PM EDT [facility] Lactate, Arterial, Whole Blood 0.9 0.5 - 1.6 mmol/L LAB HEMATOLOGY METHOD 07/09/2025 3:40 PM EDT [facility] Blood Arterial blood specimen / Unknown Arterial Line / Unknown 07/09/2025 3:16 PM EDT 07/09/2025 3:38 PM EDT us Luanne Crawford MD LAB BLOOD ORDERABLES Final Result [facility] [address] [place] [address] * (ABNORMAL) POCT glucose meter (07/09/2025 3:01 [...] Comment 07/09/2025 3:03 PM EDT [facility] [place] ID Jeana Bear 07/09/2025 3:03 PM EDT HEALTH[facility]ARE LAB Device ID [id number] 07/09/2025 3:03 PM EDT [facility] Specimen Type POC Capillary 07/09/2025 3:[address] [facility] Blood Capillary blood specimen / Unknown 07/09/2025 3:01 PM EDT 07/09/2025 3:03 PM EDT Luanne Crawford MD LAB POINT OF CARE TEST DOCKED DEVICE UNSOLICITED RESULTS Final Result [facility] [address] [place] [address] * (ABNORMAL) POCT glucose meter (07/09/2025 1:57 PM EDT) [facility] POCT Glucose 115(H) 74 - 99 mg/dL [...] Comment 07/09/2025 1:59 PM EDT [facility] [place] ID Jeana Bear 07/09/2025 1:59 PM EDT HEALTH[facility] LAB Device ID [id number] 07/09/2025 1:[address] [facility] Specimen Type POC Capillary 07/09/2025 1:[address] [facility] Blood Capillary blood specimen / Unknown 07/09/2025 1:57 PM EDT 07/09/2025 1:59 PM EDT Luanne Crawford MD LAB POINT OF CARE TEST DOCKED DEVICE UNSOLICITED RESULTS Final Result [facility] [address] [place] [address] * Phosphorus (07/09/2025 1:21 PM EDT) Pathologist [facility] Phosphorus, Plasma 4.2 2.5 - 4.5 mg/dL 07/09/2025 2:49 PM EDT [facility] Blood Arterial blood specimen / Unknown Arterial Line / Unknown 07/09/2025 1:21 PM EDT 07/09/2025 2:01 PM EDT us Luanne Crawford MD LAB BLOOD ORDERABLES Final Result Performing Organization Address City/[facility]/ZIP Co de Phone Number [facility] [address] [place] [address] * Magnesium (07/09/2025 1:21 PM EDT) Magnesium, Plasma 2.3 1.9 - 2.4 mg/dL 07/09/2025 2:49 PM EDT [facility] Blood Arterial blood specimen / Unknown Arterial Line / Unknown 07/09/2025 1:21 PM EDT 07/09/2025 2:01 PM EDT us Luanne Crawford MD LAB BLOOD ORDERABLES Final Result Performing Organization Address [facility] Co de Phone Number [facility] [address] [place] [address] * (ABNORMAL) Basic metabolic panel (07/09/2025 1:21 PM EDT) Glucose, Plasma 100(H) 74 - 99 mg/dL 07/09/2025 2:49 PM EDT [facility] BUN, Plasma 26(H) 7 - 21 mg/dL 07/09/2025 2:49 PM EDT [facility] Creatinine, Plasma 1.42(H) 0.60 - 1.10 mg/dL 07/09/2025 2:49 PM EDT [facility] BUN/Creatinine Ratio 18 07/09/2025 2:49 PM EDT [facility] Sodium, Plasma 140 136 - 145 mmol/L 07/09/2025 2:49 PM EDT [facility] Potassium, Plasma 3.7 3.6 - 4.9 mmol/L 07/09/2025 2:49 PM EDT [facility] Chloride, Plasma 104 97 - 107 mmol/L 07/09/2025 2:49 PM EDT [facility] CO2, Plasma 24 22 - 29 mmol/L 07/09/2025 2:49 PM EDT [facility] Anion Gap 12 6 - 16 mmol/L 07/09/2025 2:49 PM EDT [facility] Total Calcium, Plasma 9.1 8.9 - 10.2 mg/dL 07/09/2025 2:49 PM EDT [facility] eGFRcr 45.4 mL/min/1.7 3m*2 07/09/2025 2:49 PM EDT [facility] Comment:Reported eGFRcr in m L/min/1.73m2 is based the CKD-EPI 2020 equation that does not use a race coefficient. Blood Arterial blood specimen / Unknown Arterial Line / Unknown 07/09/2025 1:21 PM EDT 07/09/2025 2:01 PM EDT us Luanne Crawford MD LAB BLOOD ORDERABLES Final Result [facility] [address] [place] [address] * (ABNORMAL) POCT glucose meter (07/09/2025 1:20 PM EDT) [facility] POCT Glucose 103(H) 74 - 99 mg/dL [...] Comment 07/09/2025 1:22 PM EDT [facility] [place] ID Jeana Bear 07/09/2025 1:22 PM EDT [facility]ALTH[facility] LAB Device ID [id number] 07/09/2025 1:22 PM EDT [facility] Specimen Type POC Arterial 07/09/2025 1:22 PM EDT [facility] Blood Arterial blood specimen / Unknown 07/09/2025 1:20 PM EDT 07/09/2025 1:22 PM EDT us Luanne Crawford MD LAB POINT OF CARE TEST DOCKED DEVICE UNSOLICITED RESULTS Final Result Performing Organization Address City/[facility]/ZIP Co de Phone Number [facility] [address] [place] [address] * (ABNORMAL) POCT glucose meter (07/09/2025 12:44 PM EDT) [facility] POCT Glucose 110(H) 74 - 99 mg/dL [...] Comment 07/09/2025 12:45 PM EDT [facility] [place] ID Jeana Bear 07/09/2025 12:45 PM EDT [facility]ALTH[facility] LAB Device ID [id number] 07/09/2025 12:[address] [facility] Specimen Type POC Capillary 07/09/2025 12:[address] [facility] Blood Capillary blood specimen / Unknown 07/09/2025 12:44 PM EDT 07/09/2025 12:45 PM EDT Luanne Crawford MD LAB POINT OF CARE TEST DOCKED DEVICE UNSOLICITED RESULTS Final Result Performing Organization Address City/[facility]/ZIP Co de Phone Number [facility] [address] [place] [address] * (ABNORMAL) POCT glucose meter (07/09/2025 12:19 PM EDT) [facility] POCT Glucose 62(L) 74 - 99 mg/dL [...] 07/09/2025 12:21 PM EDT [facility] [place] ID Jeana Bear 07/09/2025 12:21 PM EDT HEALTH[facility]ARE LAB Device ID [id number] 07/09/2025 12:21 PM EDT [facility] Specimen Type POC Capillary 07/09/2025 12:21 PM EDT [facility] Blood Capillary blood specimen / Unknown 07/09/2025 12:19 PM EDT 07/09/2025 12:21 PM EDT us Luanne Crawford MD LAB POINT OF CARE TEST DOCKED DEVICE UNSOLICITED RESULTS Final Result Performing Organization Address City/[facility]/ZIP Co de Phone Number [facility] [address] [place] [address] * Blood Culture (Aerobic/Anaerobet Set) (07/09/2025 10:35 AM EDT) Culture No growth at day 5 KAROLINA 07/14/2025 12:02 PM EDT [facility] Blood Structure of antecubital vein / Unknown Venipuncture / Unknown 07/09/2025 10:35 AM EDT 07/09/2025 10:50 AM EDT us My Mckinney MD LAB MICROBIOLOGY - GENE RAL ORDERABLES Final Result Performing Organization Address City/[facility] Co de Phone Number [facility] [address] [place] [address] * Blood Culture (Aerobic/Anaerobet Set) (07/09/2025 10:35 AM EDT) Culture No growth at day 5 KAROLINA 07/14/2025 12:02 PM EDT [facility] Blood Structure of antecubital vein / Unknown Venipuncture / Unknown 07/09/2025 10:35 AM EDT 07/09/2025 10:50 AM EDT us My Mckinney MD LAB MICROBIOLOGY - GENE RAL ORDERABLES Final Result Performing Organization Address City/[facility]/ZIP Co de Phone Number [facility] [address] [place] [address] * (ABNORMAL) POCT glucose meter (07/09/2025 10:04 [...] Comment 07/09/2025 10:05 AM EDT [facility] [place] ID Jeana Bear 07/09/2025 10:05 AM EDT [facility] Device ID [id number] 07/09/2025 10:05 AM EDT [facility]ALTH[facility]ARE [facility] Specimen Type POC Capillary 07/09/2025 10:[address] [facility] Blood Capillary blood specimen / Unknown 07/09/2025 10:04 AM EDT 07/09/2025 10:05 AM EDT us Luanne Crawford MD LAB POINT OF CARE TEST DOCKED DEVICE UNSOLICITED RESULTS Final Result Performing Organization Address City/State/[facility] Co de Phone Number [facility]ALTHCARE [facility] [address] [place] [address] * Multi Drug Resistance Test (07/09/2025 9:46 AM EDT) [facility] Culture No growth at day 1 07/10/2025 11:58 AM EDT [facility] Swab (Nares and Leann Rectal) Non-blood Collection / Unknown 07/09/2025 9:46 AM EDT 07/09/2025 10:09 AM EDT Narrative [facility] - 07/10/2025 11:58 AM EDT This test was developed and its performance characteristics determined by the [facility]. Although the media is FDA-approved, it is not FDA-approved for all specimen types submitted. The FDA has determined that such clearance or approval is not necessary. This test is used for surveillance purposes. It should not be regarded as investigational or for research. The [facility] is certified under the Clinical Laboratory Improvement Amendments of 1988 (CLIA-88) as qualified to perform high complexity clinical laboratory testing. us Luanne Crawford MD LAB MICROBIOLOGY - GENERAL ORDERABLES Final Result [facility] [address] [place] [address] * (ABNORMAL) Blood gas, arterial (07/09/2025 8:47 AM EDT) pH, Arterial 7.30(L) 7.35 - 7.45 LAB HEMATOLOGY METHOD 07/09/2025 8:55 AM EDT [facility] pCO2, Arterial 53(H) 35 - 48 mmHg LAB HEMATOLOGY METHOD 07/09/2025 8:55 AM EDT [facility] pO2, Arterial 173(H) 83 - 108 mmHg LAB HEMATOLOGY METHOD 07/09/2025 8:55 AM EDT [facility] SO2, Measured, Arterial 98 94 - 98 % LAB HEMATOLOGY METHOD 07/09/2025 8:55 AM EDT [facility] Base Excess, Arterial -0.8 -2.0 - 3.0 mmol/L LAB HEMATOLOGY METHOD 07/09/2025 8:55 AM EDT [facility] Bicarbonate, Calculated, Arterial 26 22 - 26 mmol/L LAB HEMATOLOGY METHOD 07/09/2025 8:55 AM EDT [facility] Hematocrit, Whole Blood 27.3(L) 34.0 - 45.0 % LAB HEMATOLOGY METHOD 07/09/2025 8:55 AM EDT [facility] Sodium, Whole Blood 140 136 - 145 mmol/L LAB HEMATOLOGY METHOD 07/09/2025 8:55 AM EDT [facility] Potassium, Whole Blood 2.9(L) 3.6 - 4.9 mmol/L LAB HEMATOLOGY METHOD 07/09/2025 8:55 AM EDT [facility] Chloride, Whole Blood 106 97 - 107 mmol/L LAB HEMATOLOGY METHOD 07/09/2025 8:55 AM EDT [facility] Glucose, Whole Blood 155(H) 74 - 99 mg/dL LAB HEMATOLOGY METHOD 07/09/2025 8:55 AM EDT [facility] Ionized Calcium, Whole Blood 5.0 4.6 - 5.1 mg/dL LAB HEMATOLOGY METHOD 07/09/2025 8:55 AM EDT [facility] Lactate, Arterial, Whole Blood 1.4 0.5 - 1.6 mmol/L LAB HEMATOLOGY METHOD 07/09/2025 8:55 AM EDT [facility] Blood Arterial blood specimen / Unknown Arterial Line / Unknown 07/09/2025 8:47 AM EDT 07/09/2025 8:54 AM EDT us Dorcas Hennessy MD LAB BLOOD ORDERABLES Final Resul t Performing Organization Address City/[facility]/ZIP Co de Phone Number [facility] [address] [place] [address] * (ABNORMAL) POCT glucose meter (07/09/2025 8:01 AM EDT) [facility] POCT Glucose 200(H) 74 - 99 mg/dL [...] Comment 07/09/2025 8:03 AM EDT [facility] [place] ID Jeana Bear 07/09/2025 8:03 AM EDT [facility] LAB Device ID [id number] 07/09/2025 8:03 AM EDT [facility] Specimen Type POC Capillary 07/09/2025 8:[address] [facility] Blood Capillary blood specimen / Unknown 07/09/2025 8:01 AM EDT 07/09/2025 8:03 AM EDT us Lunane Crawford MD LAB POINT OF CARE TEST DOCKED DEVICE UNSOLICITED RESULTS Final Result [facility] [address] [place] [address] * [place] [facility], E/M 30-74 MINUTES (07/09/2025 7:15 [...] POCT glucose meter (07/09/2025 6:05 AM EDT) [facility] POCT Glucose 196(H) 74 - 99 mg/dL 07/09/2025 6:20 AM EDT [facility] Comment:Accuracy of a glucos e result [...] for testing. Comment 07/09/2025 6:20 AM EDT [facility] [place] ID Cheyanne Briceño 07/09/2025 6:20 AM EDT [facility] Device ID [id number] 07/09/2025 6:20 AM EDT [facility] Specimen Type POC Arterial 07/09/2025 6:20 AM EDT [facility] Blood Arterial blood specimen / Unknown 07/09/2025 6:05 AM EDT 07/09/2025 6:20 AM EDT us Luanne Crawford MD LAB POINT OF CARE TEST DOCKED DEVICE UNSOLICITED RESULTS Final Result Performing Organization Address City/[facility]/ZIP Co de Phone Number [facility] [address] [place] [address] * (ABNORMAL) Hemoglobin A1c (07/09/2025 4:57 AM EDT) Hemoglobin A1c 7.5(H) <5.7 % 07/09/2025 12:09 PM EDT [facility] Blood Arterial blood specimen / Unknown Venipuncture / Unknown 07/09/2025 4:57 AM EDT 07/09/2025 5:07 AM EDT Narrative [facility] - 07/09/2025 12:09 PM [...] ORDERABLES Final Resul t Performing Organization Address [facility]/ZIP Co de Phone Number [facility] [address] [place] [address] * Phosphorus (07/09/2025 4:57 AM EDT) Phosphorus, Plasma 4.1 2.5 - 4.5 mg/dL 07/09/2025 5:35 AM EDT [facility] Blood Arterial blood specimen / Unknown Venipuncture / Unknown 07/09/2025 4:57 AM EDT 07/09/2025 5:06 AM EDT us Luanne Crawford MD LAB BLOOD ORDERABLES Final Result Performing Organization Address City/[facility]/ZIP Co de Phone Number [facility] [address] [place] [address] * Magnesium, Plasma (07/09/2025 4:57 AM EDT) Magnesium, Plasma 2.2 1.9 - 2.4 mg/dL 07/09/2025 5:35 AM EDT [facility] Blood Arterial blood specimen / Unknown Venipuncture / Unknown 07/09/2025 4:57 AM EDT 07/09/2025 5:06 AM EDT us Luanne Crawford MD LAB BLOOD ORDERABLES Final Result [facility] [address] [place] [address] * (ABNORMAL) Basic Metabolic Panel, Plasma (07/09/2025 4:57 AM EDT) Glucose, Plasma 235(H) 74 - 99 mg/dL 07/09/2025 5:35 AM EDT [facility] BUN, Plasma 30(H) 7 - 21 mg/dL 07/09/2025 5:35 AM EDT [facility] Creatinine, Plasma 1.58(H) 0.60 - 1.10 mg/dL 07/09/2025 5:35 AM EDT [facility] BUN/Creatinine Ratio 19 07/09/2025 5:35 AM EDT [facility] Sodium, Plasma 136 136 - 145 mmol/L 07/09/2025 5:35 AM EDT [facility] Potassium, Plasma 3.5(L) 3.6 - 4.9 mmol/L 07/09/2025 5:35 AM EDT [facility] Chloride, Plasma 101 97 - 107 mmol/L 07/09/2025 5:35 AM EDT [facility] CO2, Plasma 23 22 - 29 mmol/L 07/09/2025 5:35 AM EDT [facility] Anion Gap 12 6 - 16 mmol/L 07/09/2025 5:35 AM EDT [facility] Total Calcium, Plasma 9.2 8.9 - 10.2 mg/dL 07/09/2025 5:35 AM EDT [facility] eGFRcr 40.0 mL/min/1.7 3m*2 07/09/2025 5:35 AM EDT [facility] Comment:Reported eGFRcr in m L/min/1.73m2 is based the CKD-EPI 2020 equation that does not use a race coefficient. Blood Arterial blood specimen / Unknown Venipuncture / Unknown 07/09/2025 4:57 AM EDT 07/09/2025 5:06 AM EDT us Luanne Crawford MD LAB BLOOD ORDERABLES Final Result [facility] [address] [place] [address] * (ABNORMAL) CBC W/O Differential (07/09/2025 4:57 AM EDT) WBC Count 32.25(H) 3.70 - 10.30 10*3/uL LAB HEMATOLOGY METHOD 07/09/2025 5:15 AM EDT [facility] RBC Count 3.89(L) 3.90 - 5.20 10*6/uL LAB HEMATOLOGY METHOD 07/09/2025 5:15 AM EDT [facility] HGB 11.0(L) 11.2 - 15.7 g/dL LAB HEMATOLOGY METHOD 07/09/2025 5:15 AM EDT [facility] HCT 33.4(L) 34.0 - 45.0 % LAB HEMATOLOGY METHOD 07/09/2025 5:15 AM EDT [facility] Platelet Count 358 155 - 369 10*3/uL LAB HEMATOLOGY METHOD 07/09/2025 5:15 AM EDT [facility] MCV 86 79 - 98 fL LAB HEMATOLOGY METHOD 07/09/2025 5:15 AM EDT [facility] MCH 28.3 26.0 - 32.0 pg LAB HEMATOLOGY METHOD 07/09/2025 5:15 AM EDT [facility] MCHC 32.9 30.7 - 35.5 g/dL LAB HEMATOLOGY METHOD 07/09/2025 5:15 AM EDT [facility] RDW 17.4(H) 11.5 - 14.5 % LAB HEMATOLOGY METHOD 07/09/2025 5:15 AM EDT [facility] MPV 10.0 8.8 - 12.5 fL LAB HEMATOLOGY METHOD 07/09/2025 5:15 AM EDT [facility] nRBC 0.0 <=0.0 per 100 WBCs LAB HEMATOLOGY METHOD 07/09/2025 5:15 AM EDT [facility] Blood Arterial blood specimen / Unknown Venipuncture / Unknown 07/09/2025 4:57 AM EDT 07/09/2025 5:07 AM EDT us Luanne Crawford MD LAB BLOOD ORDERABLES Final Result Performing Organization Address City/[facility]/ZIP Co de Phone Number [facility] [address] [place] [address] * (ABNORMAL) POCT glucose meter (07/09/2025 4:03 AM EDT) [facility] Signature POCT Glucose 232(H) 74 - [...] Comment 07/09/2025 4:05 AM EDT [facility] [place] ID Cheyanne Briceño 07/09/2025 4:05 AM EDT [facility] LAB Device ID [id number] 07/09/2025 4:05 AM EDT [facility] Specimen Type POC Arterial 07/09/2025 4:[address] [facility] Blood Arterial blood specimen / Unknown 07/09/2025 4:03 AM EDT 07/09/2025 4:05 AM EDT us Luanne Crawford MD LAB POINT OF CARE TEST DOCKED DEVICE UNSOLICITED RESULTS Final Result Performing Organization Address City/[facility] Co de Phone Number [facility] [address] [place] [address] * XR Chest 1 View (07/09/2025 3:42 [...] - 99 mg/dL 07/09/2025 2:17 AM EDT [facility] Comment:Accuracy of a glucos e result [...] Comment 07/09/2025 2:17 AM EDT [facility] [place] ID Cheyanne Briceño 07/09/2025 2:17 AM EDT HEALTH[facility]ARE LAB Device ID [id number] 07/09/2025 2:17 AM EDT [facility] Specimen Type POC Arterial 07/09/2025 2:17 AM EDT [facility] Blood Arterial blood specimen / Unknown 07/09/2025 2:15 AM EDT 07/09/2025 2:17 AM EDT us Luanne Crawford MD LAB POINT OF CARE TEST DOCKED DEVICE UNSOLICITED RESULTS Final Result [facility] [address] [place] [address] * (ABNORMAL) Blood gas panel, arterial (07/09/2025 2:11 AM EDT) pH, Arterial 7.25(LL) 7.35 - 7.45 LAB HEMATOLOGY METHOD 07/09/2025 2:23 AM EDT [facility] pCO2, Arterial 56(H) 35 - 48 mmHg LAB HEMATOLOGY METHOD 07/09/2025 2:23 AM EDT [facility] pO2, Arterial 67(L) 83 - 108 mmHg LAB HEMATOLOGY METHOD 07/09/2025 2:23 AM EDT [facility] SO2, Measured, Arterial 91(L) 94 - 98 % LAB HEMATOLOGY METHOD 07/09/2025 2:23 AM EDT [facility] Base Excess, Arterial -2.7(L) -2.0 - 3.0 mmol/L LAB HEMATOLOGY METHOD 07/09/2025 2:23 AM EDT [facility] Bicarbonate, Calculated, Arterial 25 22 - 26 mmol/L LAB HEMATOLOGY METHOD 07/09/2025 2:23 AM EDT [facility] Hematocrit, Whole Blood 31.5(L) 34.0 - 45.0 % LAB HEMATOLOGY METHOD 07/09/2025 2:23 AM EDT [facility] Sodium, Whole Blood 135(L) 136 - 145 mmol/L LAB HEMATOLOGY METHOD 07/09/2025 2:23 AM EDT [facility] Potassium, Whole Blood 3.5(L) 3.6 - 4.9 mmol/L LAB HEMATOLOGY METHOD 07/09/2025 2:23 AM EDT [facility] Chloride, Whole Blood 103 97 - 107 mmol/L LAB HEMATOLOGY METHOD 07/09/2025 2:23 AM EDT [facility] Glucose, Whole Blood 279(H) 74 - 99 mg/dL LAB HEMATOLOGY METHOD 07/09/2025 2:23 AM EDT [facility] Ionized Calcium, Whole Blood 4.9 4.6 - 5.1 mg/dL LAB HEMATOLOGY METHOD 07/09/2025 2:23 AM EDT [facility] Lactate, Arterial, Whole Blood 1.2 0.5 - 1.6 mmol/L LAB HEMATOLOGY METHOD 07/09/2025 2:23 AM EDT [facility] Blood Arterial blood specimen / Unknown Arterial Puncture / Unknown 07/09/2025 2:11 AM EDT 07/09/2025 2:21 AM EDT us Luanne Crawford MD LAB BLOOD ORDERABLES Final Result [facility] [address] [place] [address] * (ABNORMAL) POCT glucose meter (07/09/2025 1:22 AM EDT) POCT Glucose 271(H) 74 - 99 mg/dL 07/09/2025 1:[address] [facility] Comment:Accuracy of a glucos [...] Comment 07/09/2025 1:24 AM EDT [facility] [place] ID Cheyanne Briceño 07/09/2025 1:[address] [facility] Device ID [id number] 07/09/2025 1:24 AM EDT [facility]ALTH[facility]ARE [facility] Specimen Type POC Arterial 07/09/2025 1:[address] [facility] Blood Arterial blood specimen / Unknown 07/09/2025 1:22 AM EDT 07/09/2025 1:24 AM EDT Luanne Crawford MD LAB POINT OF CARE TEST DOCKED DEVICE UNSOLICITED RESULTS Final Result Performing Organization Address City/[facility]/ZIP Co de Phone Number [facility] [address] [place] [address] * (ABNORMAL) POCT glucose meter (07/09/2025 12:06 [...] Comment 07/09/2025 12:08 AM EDT [facility] [place] ID Cheyanne Briceño 07/09/2025 12:08 AM EDT HEALTH[facility]ARE LAB Device ID [id number] 07/09/2025 12:[address] [facility] Specimen Type POC Arterial 07/09/2025 12:[address] [facility] Blood Arterial blood specimen / Unknown 07/09/2025 12:06 AM EDT 07/09/2025 12:08 AM EDT us Luanne Crawford MD LAB POINT OF CARE TEST DOCKED DEVICE UNSOLICITED RESULTS Final Result Performing Organization Address City/[facility]/ZIP Co de Phone Number [facility] [address] [place] [address] * APTT (07/08/2025 11:53 PM EDT) aPTT 25 25 - 35 sec LAB COAGULATION METHOD 07/09/2025 12:32 AM EDT [facility] Blood Venous blood specimen / Unknown Venipuncture / Unknown 07/08/2025 11:53 PM EDT 07/08/2025 11:59 PM EDT us Luanne Crawford MD LAB BLOOD ORDERABLES Final Result Performing Organization Address [facility]/[place] [address] * (ABNORMAL) Protime-INR (07/08/2025 11:53 PM EDT) Prothrombin Time 15.2(H) 12.0 - 14.3 sec LAB COAGULATION METHOD 07/09/2025 12:32 AM EDT [facility] INR 1.2(H) 0.9 - 1.1 LAB COAGULATION METHOD 07/09/2025 12:32 AM EDT [facility] Blood Venous blood specimen / Unknown Venipuncture / Unknown 07/08/2025 11:53 PM EDT 07/08/2025 11:59 PM EDT Narrative [facility] - 07/09/2025 12:32 AM [...] BLOOD ORDERABLES Final Result Performing Organization Address [facility]/ZIP Co de Phone Number [facility] [address] [place] [address] * Phosphorus, Plasma (07/08/2025 11:52 PM EDT) Phosphorus, Plasma 3.6 2.5 - 4.5 mg/dL 07/09/2025 12:27 AM EDT [facility] Blood Venous blood specimen / Unknown Venipuncture / Unknown 07/08/2025 11:52 PM EDT 07/08/2025 11:59 PM EDT us Luanne Crawford MD LAB BLOOD ORDERABLES Final Result [facility] [address] [place] [address] * (ABNORMAL) Magnesium, Plasma (07/08/2025 11:52 PM EDT) Magnesium, Plasma 1.8(L) 1.9 - 2.4 mg/dL 07/09/2025 12:27 AM EDT [facility] Blood Venous blood specimen / Unknown Venipuncture / Unknown 07/08/2025 11:52 PM EDT 07/08/2025 11:59 PM EDT us Luanne Crawford MD LAB BLOOD ORDERABLES Final Result Performing Organization Address City/[facility]/ZIP Co de Phone Number [facility] [address] [place] [address] * (ABNORMAL) Basic Metabolic Panel, Plasma (07/08/2025 11:52 PM EDT) Glucose, Plasma 314(H) 74 - 99 mg/dL 07/09/2025 12:27 AM EDT [facility] BUN, Plasma 32(H) 7 - 21 mg/dL 07/09/2025 12:27 AM EDT [facility] Creatinine, Plasma 1.80(H) 0.60 - 1.10 mg/dL 07/09/2025 12:27 AM EDT [facility] BUN/Creatinine Ratio 18 07/09/2025 12:27 AM EDT [facility] Sodium, Plasma 136 136 - 145 mmol/L 07/09/2025 12:27 AM EDT [facility] Potassium, Plasma 3.6 3.6 - 4.9 mmol/L 07/09/2025 12:27 AM EDT [facility] Chloride, Plasma 100 97 - 107 mmol/L 07/09/2025 12:27 AM EDT [facility] CO2, Plasma 23 22 - 29 mmol/L 07/09/2025 12:27 AM EDT [facility] Anion Gap 13 6 - 16 mmol/L 07/09/2025 12:27 AM EDT [facility] Total Calcium, Plasma 8.9 8.9 - 10.2 mg/dL 07/09/2025 12:27 AM EDT [facility] eGFRcr 34.2 mL/min/1.7 3m*2 07/09/2025 12:27 AM EDT [facility] Comment:Reported eGFRcr in m L/min/1.73m2 is based the CKD-EPI 2020 equation that does not use a race coefficient. Blood Venous blood specimen / Unknown Venipuncture / Unknown 07/08/2025 11:52 PM EDT 07/08/2025 11:59 PM EDT us Luanne Crawford MD LAB BLOOD ORDERABLES Final Result [facility] [address] [place] [address] * (ABNORMAL) CBC W/O Differential (07/08/2025 11:52 PM EDT) WBC Count 22.50(H) 3.70 - 10.30 10*3/uL LAB HEMATOLOGY METHOD 07/09/2025 12:16 AM EDT [facility] RBC Count 3.60(L) 3.90 - 5.20 10*6/uL LAB HEMATOLOGY METHOD 07/09/2025 12:16 AM EDT [facility] HGB 10.0(L) 11.2 - 15.7 g/dL LAB HEMATOLOGY METHOD 07/09/2025 12:16 AM EDT [facility] HCT 30.8(L) 34.0 - 45.0 % LAB HEMATOLOGY METHOD 07/09/2025 12:16 AM EDT [facility] Platelet Count 273 155 - 369 10*3/uL LAB HEMATOLOGY METHOD 07/09/2025 12:16 AM EDT [facility] MCV 86 79 - 98 fL LAB HEMATOLOGY METHOD 07/09/2025 12:16 AM EDT [facility] MCH 27.8 26.0 - 32.0 pg LAB HEMATOLOGY METHOD 07/09/2025 12:16 AM EDT [facility] MCHC 32.5 30.7 - 35.5 g/dL LAB HEMATOLOGY METHOD 07/09/2025 12:16 AM EDT [facility] RDW 16.9(H) 11.5 - 14.5 % LAB HEMATOLOGY METHOD 07/09/2025 12:16 AM EDT [facility] MPV 10.3 8.8 - 12.5 fL LAB HEMATOLOGY METHOD 07/09/2025 12:16 AM EDT [facility] nRBC 0.0 <=0.0 per 100 WBCs LAB HEMATOLOGY METHOD 07/09/2025 12:16 AM EDT [facility] Blood Venous blood specimen / Unknown Venipuncture / Unknown 07/08/2025 11:52 PM EDT 07/08/2025 11:59 PM EDT us Luanne Crawford MD LAB BLOOD ORDERABLES Final Result Performing Organization Address City/[facility] Co de Phone Number [facility] [address] [place] [address] * Richie auris Surveillance by PCR (07/08/2025 11:50 PM EDT) Richie auris PCR Result Not Detected Not Detected 07/09/2025 11:26 AM EDT [facility] Swab (Axilla and Groin) Non-blood Collection / Unknown 07/08/2025 11:50 PM EDT 07/09/2025 12:17 AM EDT Narrative [facility] - 07/09/2025 11:26 AM EDT This PCR assay was developed and its performance characteristics determined by [facility] as appropriate for clinical purposes. This assay has not been cleared or approved by the FDA, but is performed in a CLIA regulated laboratory that is qualified to perform high-complexity testing. us Luanne Crawford MD LAB MICROBIOLOGY - GENERAL ORDERABLES Final Result Performing Organization Address City/[facility]/ZIP Co de Phone Number [facility] [address] [place] [address] * Multi Drug Resistance Test (07/08/2025 11:50 PM EDT) Culture No growth at day 1 07/10/2025 5:45 AM EDT [facility] Swab (Nares and Leann Rectal) Non-blood Collection / Unknown 07/08/2025 11:50 PM EDT 07/09/2025 12:17 AM EDT Narrative [facility] - 07/10/2025 5:45 AM EDT This test was developed and its performance characteristics determined by the [facility]. Although the media is FDA-approved, it is not FDA-approved for all specimen types submitted. The FDA has determined that such clearance or approval is not necessary. This test is used for surveillance purposes. It should not be regarded as investigational or for research. The [facility] is certified under the Clinical Laboratory Improvement Amendments of 1988 (CLIA-88) as qualified to perform high complexity clinical laboratory testing. us Luanne Crawford MD LAB MICROBIOLOGY - GENERAL ORDERABLES Final Result [facility] [address] [place] [address] * (ABNORMAL) Blood gas, arterial (07/08/2025 11:50 PM EDT) pH, Arterial 7.27(L) 7.35 - 7.45 LAB HEMATOLOGY METHOD 07/09/2025 12:00 AM EDT [facility] pCO2, Arterial 53(H) 35 - 48 mmHg LAB HEMATOLOGY METHOD 07/09/2025 12:00 AM EDT [facility] pO2, Arterial 114(H) 83 - 108 mmHg LAB HEMATOLOGY METHOD 07/09/2025 12:00 AM EDT [facility] SO2, Measured, Arterial 99(H) 94 - 98 % LAB HEMATOLOGY METHOD 07/09/2025 12:00 AM EDT [facility] Base Excess, Arterial -3.1(L) -2.0 - 3.0 mmol/L LAB HEMATOLOGY METHOD 07/09/2025 12:00 AM EDT [facility] Bicarbonate, Calculated, Arterial 24 22 - 26 mmol/L LAB HEMATOLOGY METHOD 07/09/2025 12:00 AM EDT [facility] Hematocrit, Whole Blood 31.0(L) 34.0 - 45.0 % LAB HEMATOLOGY METHOD 07/09/2025 12:00 AM EDT [facility] Sodium, Whole Blood 134(L) 136 - 145 mmol/L LAB HEMATOLOGY METHOD 07/09/2025 12:00 AM EDT [facility] Potassium, Whole Blood 3.5(L) 3.6 - 4.9 mmol/L LAB HEMATOLOGY METHOD 07/09/2025 12:00 AM EDT [facility] Chloride, Whole Blood 101 97 - 107 mmol/L LAB HEMATOLOGY METHOD 07/09/2025 12:00 AM EDT [facility] Glucose, Whole Blood 315(H) 74 - 99 mg/dL LAB HEMATOLOGY METHOD 07/09/2025 12:00 AM EDT [facility] Ionized Calcium, Whole Blood 5.1 4.6 - 5.1 mg/dL LAB HEMATOLOGY METHOD 07/09/2025 12:00 AM EDT [facility] Lactate, Arterial, Whole Blood 1.7(H) 0.5 - 1.6 mmol/L LAB HEMATOLOGY METHOD 07/09/2025 12:00 AM EDT [facility] Blood Arterial blood specimen / Unknown Arterial Puncture / Unknown 07/08/2025 11:50 PM EDT 07/08/2025 11:59 PM EDT us Richard Betts [facility] BLOOD ORDERABLES Sarah bennett Result [facility] [address] [place] [address] * (ABNORMAL) POCT glucose meter (07/08/2025 11:49 [...] Comment 07/08/2025 11:50 PM EDT [facility] [place] ID Mary Cotto 07/08/2025 11:[address] [facility] Device ID [id number] 07/08/2025 11:[address] [facility] Specimen Type POC Arterial 07/08/2025 11:[address] [facility] Blood Arterial blood specimen / Unknown 07/08/2025 11:49 PM EDT 07/08/2025 11:50 PM EDT us Luanne Crawford MD LAB POINT OF CARE TEST DOCKED DEVICE UNSOLICITED RESULTS Final Result [facility] [address] [place] [id number] * (ABNORMAL) Tissue Culture and Gram Stain (07/08/2025 10:48 PM EDT) Culture Light Growth 07/13/2025 1:13 PM EDT [facility] Culture 1+ Schaalia turicensis (formerly known as Actinomyces turicensis)(A) 07/13/2025 1:13 PM EDT [facility] Comment: The organism value for this result has been updated. These results have been appended to the previously preliminary verified report. This is a corrected result. Previous organism was Gram positive anthony on 07/11/2025 at 1052 EDT. Culture 1+ Staphylococcus hominis(A) 07/13/2025 1:13 PM EDT [facility] Comment: This isolate has been identified using the FDA Approved [employer] [place] System The organism value for this result has been updated. These results have been appended to the previously preliminary verified report. Gram Stain Result Few Polymorphonuclear leukocytes(A) 07/13/2025 1:13 PM EDT [facility] Gram Stain Result Numerous Gram negative rods(A) 07/13/2025 1:13 PM EDT [facility] Gram Stain Result Few Gram positive cocci in pairs(A) 07/13/2025 1:13 PM EDT [facility] Tissue Topography unknown / Unknown 07/08/2025 10:48 PM EDT 07/09/2025 12:14 AM EDT Comment:Pre-op diagnosis: Necrotizing fasciitis (CMS/HCC) [M72.6] us Luanne Crawford MD LAB MICROBIOLOGY - GENERAL ORDERABLES Final Result [facility] [address] [place] [address] * Transfuse fresh frozen plasma (07/08/2025 10:35 PM EDT) Richard N Roxane KINDERGARTNER BLOOD TRANSFUSION ORDERAB LES Final Result * Transfuse RBC (07/08/2025 10:29 PM EDT) Richard Betts KINDERGARTNER BLOOD TRANSFUSION ORDERAB LES Final Result * (ABNORMAL) Blood gas panel, arterial (07/08/2025 10:08 PM EDT) pH, Arterial 7.28(L) 7.35 - 7.45 LAB HEMATOLOGY METHOD 07/08/2025 10:15 PM EDT [facility] pCO2, Arterial 50(H) 35 - 48 mmHg LAB HEMATOLOGY METHOD 07/08/2025 10:15 PM EDT [facility] pO2, Arterial 121(H) 83 - 108 mmHg LAB HEMATOLOGY METHOD 07/08/2025 10:15 PM EDT [facility] SO2, Measured, Arterial 99(H) 94 - 98 % LAB HEMATOLOGY METHOD 07/08/2025 10:15 PM EDT [facility] Base Excess, Arterial -3.6(L) -2.0 - 3.0 mmol/L LAB HEMATOLOGY METHOD 07/08/2025 10:15 PM EDT [facility] Bicarbonate, Calculated, Arterial 23 22 - 26 mmol/L LAB HEMATOLOGY METHOD 07/08/2025 10:15 PM EDT [facility] Hematocrit, Whole Blood 29.9(L) 34.0 - 45.0 % LAB HEMATOLOGY METHOD 07/08/2025 10:15 PM EDT [facility] Sodium, Whole Blood 133(L) 136 - 145 mmol/L LAB HEMATOLOGY METHOD 07/08/2025 10:15 PM EDT [facility] Potassium, Whole Blood 3.5(L) 3.6 - 4.9 mmol/L LAB HEMATOLOGY METHOD 07/08/2025 10:15 PM EDT [facility] Chloride, Whole Blood 101 97 - 107 mmol/L LAB HEMATOLOGY METHOD 07/08/2025 10:15 PM EDT [facility] Glucose, Whole Blood 351(H) 74 - 99 mg/dL LAB HEMATOLOGY METHOD 07/08/2025 10:15 PM EDT [facility] Ionized Calcium, Whole Blood 4.5(L) 4.6 - 5.1 mg/dL LAB HEMATOLOGY METHOD 07/08/2025 10:15 PM EDT [facility] Lactate, Arterial, Whole Blood 2.1(H) 0.5 - 1.6 mmol/L LAB HEMATOLOGY METHOD 07/08/2025 10:15 PM EDT [facility] Blood Arterial blood specimen / Unknown 07/08/2025 10:08 PM EDT 07/08/2025 10:14 PM EDT Comment:Pre-op diagnosis: Necrotizing fasciitis (CMS/HCC) [M72.6] us Luanne Crawford MD LAB BLOOD ORDERABLES Final Result [facility] [address] [place] [address] * Surgical Pathology Exam (07/08/2025 10:07 PM EDT) Case Report Surgical Pathology Case: [id number] Authorizing Provider: Luanne Crawford MD Collected: 07/08/20252206 Ordering Location: [facility] Received: 07/09/2025 0740 Pathologist: Boaz Fernandez MD Specimens: A) - Other (specify site), saphenous vein B) - Other (specify site), right leg 07/10/2025 3:45 PM EDT [facility] Final Diagnosis A. SAPHENOUS VEIN SEGMENT, REMOVAL: - SCLEROTIC VEIN WITH ADVENTITIAL INFLAMMATION. B. RIGHT LEG TISSUE DEBRIDEMENT: - ACUTE NECROTIZING FASCIITIS OF SKIN AND SOFT TISSUE. 07/10/2025 3:45 PM EDT [facility] at 1545 EDT Clinical Information Necrotizing fasciitis; post recent boil self popped wound. 50 y.o. female with PMH of DM, hidradenitis supparativa, current smoker (1.5 ppd), UTI, depression, anxiety, asthma, HLD, Celiac disease, 07/10/2025 3:45 PM EDT [facility] Gross Description A. SAPHENOUS VEIN Specimen is received fresh and placed in formalin labeled saphenous vein. Received is a segment of vessel that measures 8.5 cm in length and up to 0.7 cm in diameter. Specimen is sectioned to reveal a pinpoint lumen with dried blood. [employer] Agent [employer] sections are taken and submitted in cassette A1. Cold Time: 8h 56m Abhishek Baptiste MD B. RIGHT LEG Specimen is received fresh labeled right leg. Received are numerous fragments of skin and underlying soft tissue that measure in aggregate 25.0 x 25.0 x 7.5 cm. Scattered areas of skin and soft tissue notable for being green-black, foul-smelling and extensively necrotic. [employer] Agent [employer] sections are taken and submitted in cassettes B1-B2. Abhishek Baptiste MD 07/10/2025 3:45 PM EDT [facility] Note: A resident was involved in the service. I attest I examined the relevant preparations for the specimens and confirmed the diagnosis or interpretation. 07/10/2025 3:45 PM EDT [facility] Tissue Topography unknown / Unknown 07/08/2025 10:07 PM EDT 07/09/2025 7:40 AM EDT Comment:Pre-op diagnosis: Necrotizing fasciitis (CMS/HCC) [M72.6] Tissue specimen (specimen) Topography unknown / Unknown 07/08/2025 10:49 PM EDT 07/09/2025 7:40 AM EDT Comment:Pre-op diagnosis: Necrotizing fasciitis (CMS/HCC) [M72.6] Luanne Crawford MD LAB PATHOLOGY ORDERABLES F inal Result [facility] [address] [place] [address] * Transfuse fresh frozen plasma (07/08/2025 10:04 [...] (07/08/2025 9:41 PM EDT) Richard Gonzalez Roxane KINDERGARTNER BLOOD TRANSFUSION ORDERAB LES Final Result * Prepare Fresh Frozen Plasma: 2 Units (07/08/2025 9:24 PM EDT) Product Code M0038W51 [facility] Dispense Status Transfused [facility] BLOOD BANK Blood Expiration Date [id number] BLOOD BANK Unit Number [id number] [facility] B LOOD BANK Product Blood Type 5100 [facility] BLOOD BANK Blood Type O+ [facility] BLOOD B[facility] Product Code [id number] [facility] Dispense Status Transfused [facility] BLOOD BANK Blood Expiration Date [id number] BLOOD BANK Unit Number [id number] [facility] B LOOD BANK Product Blood Type 5100 BLOOD BANK Blood Type O+ [facility]LOOD [facility] Blood Venous blood specimen / Unknown Richard Gonzalez Roxane MALIK BLOOD BANK PRODUCT ORDERA BLES Final Result Performing Organization Address City/State/[facility] Co de Phone Number BLOOD BANK [address] [place] [address], * Prepare Leukocyte Reduced RBC: 2 Units (07/08/2025 9:23 PM EDT) Product Code [id number] [facility] Dispense Status Transfused BLOOD BANK Blood Expiration Date [id number] BLOOD BANK Unit Number [id number] CH B LOOD BANK Product Blood Type 5100 BLOOD BANK Blood Type O+ CH BLOOD BANK Crossmatch Compatible BLOOD BANK Product Code [id number] [facility] Dispense Status Transfused CH BLOOD BANK Blood Expiration Date [id number] BLOOD BANK Unit Number [id number] CH B LOOD BANK Product Blood Type 5100 BLOOD BANK Blood Type O+ CH BLOOD BANK Crossmatch Compatible BLOOD BANK Other Richard Betts CRNA BLOOD BANK PRODUCT ORDERA BLES Final Result BLOOD BANK [address] [place] [address], * (ABNORMAL) Abscess Culture and Gram Stain (07/08/2025 9:06 PM EDT) Culture Light Growth 07/13/2025 1:13 PM EDT [facility] Culture 1+ Mixed skin silvestre(A) 07/13/2025 1:13 PM EDT [facility] Comment: The organism value [...] as Actinomyces turicensis)(A) 07/13/2025 1:13 PM EDT [facility] Comment: This result was determined by MALDI tof Mass spectrometry. This assay was developed and its performance characteristics determined by [facility] as appropriate for clinical [...] Gram positive cocci(A) 07/13/2025 1:13 PM EDT [facility] Gram Stain Result Few Gram variable rods(A) 07/13/2025 1:13 PM EDT [facility] Gram Stain Result Moderate Gram positive rods(A) 07/13/2025 1:13 PM EDT [facility] Gram Stain Result Numerous Gram negative rods(A) 07/13/2025 1:13 PM EDT [facility] Gram Stain Result Numerous Gram negative coccobacilli(A) 07/13/2025 1:13 PM EDT [facility] Gram Stain Result Moderate Polymorphonuclear leukocytes(A) 07/13/2025 1:13 PM EDT [facility] Swab Topography unknown / Unknown 07/08/2025 9:06 PM EDT 07/08/2025 9:15 PM EDT Comment:Pre-op diagnosis: Necrotizing fasciitis (CMS/HCC) [M72.6] us Luanne Crawford MD LAB MICROBIOLOGY - GENERAL ORDERABLES Final Result [facility] [address] [place] [address] * (ABNORMAL) POCT arterial blood gas gem (07/08/2025 8:51 PM EDT) pH, Arterial 7.28(L) 7.35 - 7.45 07/08/2025 8:[address] [facility] pCO2, Arterial 53(H) 35 - 48 mm Hg 07/08/2025 8:[address] [facility] pO2, Arterial 152(H) 83 - 108 mm Hg 07/08/2025 8:[address] [facility] SO2, Arterial 99(H) 94 - 98 % 07/08/2025 8:[address] [facility] Base Excess, Arterial -2.3(L) -2 - 3 mmol/L 07/08/2025 8:[address] [facility] HCO3, Arterial 24.9 22 - 26 mmol/L 07/08/2025 8:[address] [facility] Total Hemoglobin, Arterial, Whole Blood 10.9(L) 11.2 - 15.7 g/dL 07/08/2025 8:[address] [facility] Hematocrit, Arterial 33.0(L) 34.0 - 45.0 % 07/08/2025 8:[address] [facility] Sodium, Arterial 131(L) 136 - 145 mmol/L 07/08/2025 8:[address] [facility] Potassium, Arterial 3.8 3.6 - 4.9 mmol/L 07/08/2025 8:[address] [facility] Chloride, Whole Blood 98 97 - 107 mmol/L 07/08/2025 8:[address] [facility] Glucose, Arterial 418(H) 74 - 99 mg/dL 07/08/2025 8:[address] [facility] Ionized Calcium, Arterial 4.9 4.6 - 5.1 mg/dL 07/08/2025 8:[address] [facility] Lactate, Arterial 1.6 0.5 - 1.6 mmol/L 07/08/2025 8:[address] [facility] Body Temperature 37.0 Celsius 07/08/2025 8:[address] [facility] pH, Temp Corrected, Arterial 7.28(L) 7.35 - 7.45 07/08/2025 8:[address] [facility] pCO2, Temp Corrected, Arterial 53(H) 35 - 48 mm Hg 07/08/2025 8:[address] [facility] pO2, Temp Corrected, Arterial 152(H) 83 - 108 mm Hg 07/08/2025 8:[address] [facility] [place] Singer ID Yadi Goel 07/08/2025 8:[address] [facility] Blood, Arterial Whole blood specimen / Unknown 07/08/2025 8:51 PM EDT 07/08/2025 8:53 PM EDT us Luanne Crawford MD LAB POINT OF CARE TEST DOCKED DEVICE UNSOLICITED RESULTS Final Result Performing Organization Address City/[facility] Co de Phone Number [facility] [address] [place] [phone] * ED HIV 1/2 Antibody/Antigen Screen w/Reflex to HIV 1/2 Differentiation (07/08/2025 6:14 PM EDT) HIV 1 & 2 Antibody/Antigen Screen Non Reactive Non Reactive 07/08/2025 7:12 PM EDT [facility] Comment:Screening for HIV 1 & 2 antibodies, and P24 antigen is NONREACTIVE. No confirmatory testing is required. Blood Venous blood specimen / Unknown Venipuncture / Unknown 07/08/2025 6:14 PM EDT 07/08/2025 6:30 PM EDT us My Mckinney MD LAB BLOOD ORDERABLES Fi nal Result [facility] [address] [place] [address] * Hepatitis C Antibody - ED (07/08/2025 6:14 PM EDT) [facility] Hepatitis C Antibody Negative Negative 07/08/2025 7:12 PM EDT [facility] Blood Venous blood specimen / Unknown Venipuncture / Unknown 07/08/2025 6:14 PM EDT 07/08/2025 6:30 PM EDT My Mckinney MD LAB BLOOD ORDERABLES Fi nal Result Performing Organization Address City/[facility]/ZIP Co de Phone Number [facility] [place] [address] [place] [address] * (ABNORMAL) C-Reactive protein (07/08/2025 6:14 PM EDT) [facility] CRP, Plasma 462.2(H) <=8.0 mg/L 07/08/2025 7:18 PM EDT [facility] Blood Venous blood specimen / Unknown Venipuncture / Unknown 07/08/2025 6:14 PM EDT 07/08/2025 6:23 PM EDT Narrative [facility] - 07/08/2025 7:18 PM EDT This CRP test is appropriate for assessment of infection, systemic inflammation and/or tissue injury. To assess cardiovascular disease risk order high sensitivity CRP (CRPH). My Mckinney MD LAB BLOOD ORDERABLES Fi nal Result Performing Organization Address City/[facility]/ZIP Co de Phone Number [facility] [address] [place] [address] * (ABNORMAL) Lactic acid, venous (07/08/2025 6:14 PM EDT) [facility] Lactate, Venous, Whole Blood 2.6(H) 0.5 - 2.2 mmol/L LAB HEMATOLOGY METHOD 07/08/2025 6:29 PM EDT [facility] Blood Venous blood specimen / Unknown Venipuncture / Unknown 07/08/2025 6:14 PM EDT 07/08/2025 6:23 PM EDT My Mckinney MD LAB BLOOD ORDERABLES Fi nal Result Performing Organization Address City/[facility]/ZIP Co de Phone Number [facility] [place] [place] [address] [place] [address] * Type and screen (07/08/2025 6:14 PM EDT) ABO/Rh O Positive 07/08/2025 6:10 PM EDT BLOOD [facility]ANK Antibody Screen Negative 07/08/2025 6:10 PM EDT [facility] Specimen Expiration 07/11/2025 23:59 07/08/2025 6:10 PM EDT [facility] Blood Venous blood specimen / Unknown Venipuncture / Unknown 07/08/2025 6:14 PM EDT 07/08/2025 6:18 PM EDT My Mckinney MD LAB BLOOD BANK TEST ORD ERABLES Final Result Performing Organization Address [facility] de Phone Number BLOOD BANK [address] [place] [address] * (ABNORMAL) PT-INR (07/08/2025 6:14 PM EDT) Prothrombin Time 15.3(H) 12.0 - 14.3 sec 07/08/2025 6:56 PM EDT [facility] INR 1.2(H) 0.9 - 1.1 07/08/2025 6:56 PM EDT [facility] Blood Venous blood specimen / Unknown Venipuncture / Unknown 07/08/2025 6:14 PM EDT 07/08/2025 6:23 PM EDT Narrative [facility] - 07/08/2025 6:56 PM [...] AK INR 2.5 to 3.5 us My Mckinney MD LAB BLOOD ORDERABLES Fi nal Result [facility] [address] [place] [address] * (ABNORMAL) CBC w/diff (07/08/2025 6:14 PM EDT) WBC Count 26.15(H) 3.70 - 10.30 10*3/uL LAB HEMATOLOGY METHOD 07/08/2025 9:04 PM EDT [facility] RBC Count 3.97 3.90 - 5.20 10*6/uL LAB HEMATOLOGY METHOD 07/08/2025 9:04 PM EDT [facility] HGB 10.9(L) 11.2 - 15.7 g/dL LAB HEMATOLOGY METHOD 07/08/2025 9:04 PM EDT [facility] HCT 33.6(L) 34.0 - 45.0 % LAB HEMATOLOGY METHOD 07/08/2025 9:04 PM EDT [facility] Platelet Count 329 155 - 369 10*3/uL LAB HEMATOLOGY METHOD 07/08/2025 9:04 PM EDT [facility] MCV 85 79 - 98 fL LAB HEMATOLOGY METHOD 07/08/2025 9:04 PM EDT [facility] MCH 27.5 26.0 - 32.0 pg LAB HEMATOLOGY METHOD 07/08/2025 9:04 PM EDT [facility] MCHC 32.4 30.7 - 35.5 g/dL LAB HEMATOLOGY METHOD 07/08/2025 9:04 PM EDT [facility] RDW 17.3(H) 11.5 - 14.5 % LAB HEMATOLOGY METHOD 07/08/2025 9:04 PM EDT [facility] MPV 10.1 8.8 - 12.5 fL LAB HEMATOLOGY METHOD 07/08/2025 9:04 PM EDT [facility] nRBC 0.0 <=0.0 per 100 WBCs LAB HEMATOLOGY METHOD 07/08/2025 9:04 PM EDT [facility] Differential Type Automated LAB HEMATOLOGY METHOD 07/08/2025 9:04 PM EDT [facility] Neutrophils % 91 % LAB HEMATOLOGY METHOD 07/08/2025 9:04 PM EDT [facility] Lymphocytes % 4 % LAB HEMATOLOGY METHOD 07/08/2025 9:04 PM EDT [facility] Monocytes % 4 % LAB HEMATOLOGY METHOD 07/08/2025 9:04 PM EDT [facility] Eosinophils % 0 % LAB HEMATOLOGY METHOD 07/08/2025 9:04 PM EDT [facility] Basophils % 0 % LAB HEMATOLOGY METHOD 07/08/2025 9:04 PM EDT [facility] Immature Granulocytes % 1 % LAB HEMATOLOGY METHOD 07/08/2025 9:04 PM EDT [facility] Neutrophils Absolute 23.61(H) 1.60 - 6.10 10*3/uL LAB HEMATOLOGY METHOD 07/08/2025 9:04 PM EDT [facility] Lymphocytes Absolute 1.15(L) 1.20 - 3.90 10*3/uL LAB HEMATOLOGY METHOD 07/08/2025 9:04 PM EDT [facility] Monocytes Absolute 0.98(H) 0.30 - 0.90 10*3/uL LAB HEMATOLOGY METHOD 07/08/2025 9:04 PM EDT [facility] Eosinophils Absolute 0.04 0.00 - 0.50 10*3/uL LAB HEMATOLOGY METHOD 07/08/2025 9:04 PM EDT [facility] Basophils Absolute 0.09 0.00 - 0.10 10*3/uL LAB HEMATOLOGY METHOD 07/08/2025 9:04 PM EDT [facility] Immature Granulocytes Absolute 0.25(H) 0.00 - 0.06 10*3/uL LAB HEMATOLOGY METHOD 07/08/2025 9:04 PM EDT [facility] Blood Venous blood specimen / Unknown Venipuncture / Unknown 07/08/2025 6:14 PM EDT 07/08/2025 6:23 PM EDT Narrative [facility] - 07/08/2025 9:04 PM EDT Therapeutic decision making should be based on absolute values, rather than percentages. us My Mckinney MD LAB BLOOD ORDERABLES Fi nal Result [facility] [address] [place] [address] * (ABNORMAL) CMP (07/08/2025 6:14 PM EDT) Glucose, Plasma 411(H) 74 - 99 mg/dL 07/08/2025 7:18 PM EDT [facility] BUN, Plasma 33(H) 7 - 21 mg/dL 07/08/2025 7:18 PM EDT [facility] Creatinine, Plasma 1.99(H) 0.60 - 1.10 mg/dL 07/08/2025 7:18 PM EDT [facility] BUN/Creatinine Ratio 17 07/08/2025 7:18 PM EDT [facility] Sodium, Plasma 131(L) 136 - 145 mmol/L 07/08/2025 7:18 PM EDT [facility] Potassium, Plasma 4.0 3.6 - 4.9 mmol/L 07/08/2025 7:18 PM EDT [facility] Chloride, Plasma 93(L) 97 - 107 mmol/L 07/08/2025 7:18 PM EDT [facility] CO2, Plasma 22 22 - 29 mmol/L 07/08/2025 7:18 PM EDT [facility] Anion Gap 16 6 - 16 mmol/L 07/08/2025 7:18 PM EDT [facility] Total Calcium, Plasma 9.3 8.9 - 10.2 mg/dL 07/08/2025 7:18 PM EDT [facility] Total Protein 6.0(L) 6.3 - 7.9 g/dL 07/08/2025 7:18 PM EDT [facility] Albumin, Plasma 2.6(L) 3.5 - 5.2 g/dL 07/08/2025 7:18 PM EDT [facility] AST, Plasma 16 10 - 35 U/L 07/08/2025 7:18 PM EDT [facility] ALT, Plasma 15 10 - 35 U/L 07/08/2025 7:18 PM EDT [facility] Alkaline Phosphatase, Plasma 165(H) 35 - 104 U/L 07/08/2025 7:18 PM EDT [facility] Total Bilirubin, Plasma 0.4 0.2 - 1.1 mg/dL 07/08/2025 7:18 PM EDT [facility] eGFRcr 30.3 mL/min/1.7 3m*2 07/08/2025 7:18 PM EDT [facility] Comment:Reported eGFRcr in m L/min/1.73m2 is based the CKD-EPI 2020 equation that does not use a race coefficient. Blood Venous blood specimen / Unknown Venipuncture / Unknown 07/08/2025 6:14 PM EDT 07/08/2025 6:23 PM EDT us My Mckinney MD LAB BLOOD ORDERABLES Fi nal Result [facility] [address] [place] [address] * [place] CRITICAL CARE, E/M 30-74 MINUTES (07/08/2025 5:58 PM EDT) Narrative My Mckinney MD - 07/08/2025 5:58 PM EDT My Mckinney MD 07/08/2025 9:14 PM Critical Care Performed by: My Mckinney MD Authorized by: My Mckinney MD Critical care provider statement: Critical [...] findings and plan as documented. us My Mckinney MD IN CLINIC/BEDSIDE ORDER LUANNE Final [...] use disorder Acute respiratory failure Septic shock ([facility]) Absence seizure ([facility]) 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 epilepsy Chronic obstructive pulmonary disease, unspecified HTN (hypertension), benign Essential hypertension, benign Depression Depressive disorder, not elsewhere classified Morbid (severe) obesity due to excess calories ([facility]) Urge incontinence HLD (hyperlipidemia) Other and unspecified hyperlipidemia JOSEP (obstructive sleep apnea) Obstructive sleep apnea (adult) (pediatric) Postoperative pain Other acute postoperative pain Necrotizing fasciitis ([facility]) Necrotizing fasciitis documented in this encounter Admitting Diagnoses Diagnosis Necrotizing fasciitis ([facility]) Necrotizing fasciitis documented in this encounter [...] Units, Subcutaneous, 2 times nightly (2099 & 0), First dose on Tue07/11/25 at 2100, Until [...] Oral, 2 times daily, First dose on 07/15/25 at 0900, Until Discontinued, Routine, Recovery(Phase II-Outpatient)/On Unit(Inpatient) 1001 (Given - Provider: Josi Ann, RN)2017 (Given - Provider: Inessa Almazan, NAHID) 0852 (Given - Provider: Josi Ann RN)2114 [...] no wv in place due to [facility] dc) polyethylene glycol (Miralax) packet 17 [...] RN) 0851 (See Alternative - Provider: Josi Ann, RN) 0054 (See Alternative - Provider: Inessa Almazan, RN)0715 (See Alternative - Provider: Junior Sabrina [...] documented as of this encounter Care Teams Transportation Analyst Relationship Specialty Start Date End Date Yenny Dhillon APRN [address] [place] [address] PCP - General 07/22/23 documented as of this encounter
--- OUTSIDE RECORDS SUMMARY | 2025-07-14 14:41 | XMS_ITS | Encounter Summary ---
Author Organization Healthcare Address [address] [place] [address] Care Team Providers Care Prehemmer Name Role Phone Yenny Dhillon APRN Primary Care Provider [phone] Reason for Visit * Auth/Cert (Routine) Specialty Diagnoses / Procedures Referred By Bharati t Referred To Contact Diagnoses Necrotizing fasciitis (CMS/HCC) Necrotizing Fascitis Brittany Crawford MD [address] [place] [address] Phone: tel: fax: PAV A Inpatient [address] [place] [address] Phone: tel: Referral ID Status Reason Start Date Expiration Date Visits Re quested Visits Authorized [id number] 1 1 Encounter Details Date Type Department Care Team ([facility] st Contact Info) Description 07/14/2025 2:41 PM EDT Anesthesia Event PAV A OPERATING ROOM [address] [place] [address] Azul Eisenberg, KING, DNP 800 [facility] [address] [place] [address] Lynnette Thurston, DO [address] [place], [place] [id number] Anesthesia Record Procedure Summary Procedure Name Responsible Anesthesiologist Anesthesia Start Time Anesthesia Stop Time Debridement, partial closure of right groin wound (Right) Azul Eisenberg CRNA, DNP 07/14/25 1441 07/14/25 1624 Events Date Time Event Comment 07/14/2025 1441 In Room 1441 An Start The patient was reevaluated immediately before sedation and remains eligible for anesthesia plan. 1441 An Start Data 1451 An Induction The patient was reevaluated immediately before moderate or deep sedation use and before anesthesia induction. 1453 An Intubation 1454 Anesthesia Ready 1524 Proc Start 1608 Proc Fin 1617 An Extubation 1618 an stop data 1620 Out of Room 1624 Handoff to Receiving I compl eted my handoff to the receiving clinician during which we: 1. Identified the patient 2. Identified the responsible provider 3. Reviewed the pertinent medical history 4. Discussed the surgical course 5. Reviewed intra-op anesthesia management and issues during anesthesia 6. Set expectations for post-procedure period 7. Allowed opportunity for questions and acknowledgement of understanding. 1624 An Stop Meds Name Total fentaNYL (Sublimaze) injection 50 mcg/mL 100 mcg propofol (Diprivan) injection 10 mg/mL 2 00 mg succinylcholine (Anectine) injection 20 mg/mL 120 mg rocuronium (ZeMuron) injection 10 mg/mL 50 mg lidocaine PF (Xylocaine-MPF) 2% 80 mg sugammadex (Bridion) injection 100 mg/mL 400 mg ceFAZolin (Ancef) vial 1 g 3 g HYDROmorphone PF (Dilaudid) injection 1 mg/mL 1 mg lactated Ringer's infusion 400 mL * Agents Name O2 N2O Air Sevoflurane Isoflurane Desflurane Inspired Desflurane Inspired Isoflurane Inspired Sevoflurane N2O Inspired N2O * Blood No blood administrations on file. [...] RN 07/16/25 1145 by Denia Boo RN Peripheral IV Placement Date: 03/31; Placement Time: 155 (created via procedure documentation); Catheter Size: 20 G; Orientation: Right; Location: Forearm; Site Prep: Chlorhexidine ; Local Anesth: None; Technique: Ultrasound guidance; Inserted by: Halima Live RN; Insertion Attempts: 1; Patient Tolerance: Tolerated well; Removal Date: 07/17/25; Removal Time: 1604; Removal Reason: Leaking 07/12/25 155 by Halima Live RN 07/17/25 1604 by Madeline Girard RN ETT Placement Date: 05/31; Placement Time: 1453 (created via procedure documentation); Mask Ventilation: 0; Technique: Direct laryngoscopy; Type: ETT - single; Single Lumen Tube Size: 7 mm; Cuffed: Yes; Laryngoscope: Codi; Blade Size: 4; Location: Oral; Grade View: Grade IIa; Insertion Attempts: 1; Placement Verification: Auscultation, Capnometry; Airway Comments: Atraumatic. No change to dentition. ; Placed by: KING; Removal Date: 07/14/25; Removal Time: 16107/14/25 145 by Azul Eisenberg CRNA, DNP 07/14/25 161 by Azul Eisenberg CRNA, SG documented in this encounter Social History Tobacco [...] any time in the past [address] [facility], were you homeless or living in a snf (including now)? No 07/15/2025 [facility] Utilities Answer Date Recorded In [...] Wish to be (Past 1 Month) No 09/07/2 025 8:00 AM EDT Josi Ann, RN 2. Non-Specific Active Suici silvia Thoughts (Past 1 Month) No 07/14/2025 8:00 AM EDT Sarahy Ann RN 6. Suicidal Behavior (Lifetime) No 8:00 AM EDT Josi Ann, RN documented as of this encounter Miscellaneous Notes * Anesthesia Postprocedure Evaluation - Azul Eisenberg CRNA, DNP - 07/14/2025 4:24 PM EDT Patient: Ashley Brown Anesthesia Type: general Vitals Value Taken Time BP 124/67 07/14/25 16:24 Temp 98.4 07/14/25 16:24 Pulse 89 07/14/25 16:23 Resp 21 07/14/25 16:23 SpO2 98 % 07/14/25 16:23 Vitals shown include unfiled device data. Anesthesia Post Evaluation Patient location during evaluation: PACU Patient participation: complete - patient cannot participate Level of consciousness: responsive to physical stimuli Pain management: adequate (pain score 0-3) Airway patency: natural airway Cardiovascular status: acceptable and hemodynamically stable Respiratory status: acceptable, spontaneous ventilation and face mask Hydration status: acceptable Nausea/Vomiting: No No notable events documented. * Anesthesia Procedure Notes - Azul Eisenberg CRNA, DNP - 07/14/2025 3:03 PM EDTAssociated Order(s): Airway Airway Date/Time: 07/14/2025 2:53 PM Reason: elective Airway not difficult General Information and Staff Patient location during procedure: OR MANAGER PLAN: Azul Eisenberg CRNA, DNP Performed: KING Patient Condition Indications for airway management: anesthesia Patient position: ramp Final Airway Details Final airway type: endotracheal airway Successful airway: ETT Cuffed: yes Successful intubation technique: direct laryngoscopy Adjuncts used in placement: intubating stylet and cricoid pressure Endotracheal tube insertion site: oral Blade: Codi Blade size: #4 ETT size (mm): 7.0 Cormack-Lehane Classification: grade IIa - partial view of glottis Placement verified by: chest auscultation and capnometry Measured from: lips Additional Comments Atraumatic. No change to dentition. * Anesthesia Preprocedure Evaluation - Sharif Taylor MD - 07/14/2025 2:21 PM EDT Anesthesiologist: Sharif Taylor MD MANAGER PLAN: Azul Eisenberg CRNA, DNP Patient: Ashley Brown HPI Ashley Brown is a 50 y.o. female with body mass index is 56.12 kg/m??. who presents with Necrotizing fasciitis (CMS/HCC), now for Debridement, possible partial closure of right groin wound (Right) Procedure Information Date/Time: 07/14/25 1405 Procedure: Debridement, possible partial closure of right groin wound (Right) - Lithotomy Location: [facility] / [facility] Surgeons: Anne Franco MD Relevant Problems Anesthesia (+) JOSEP (obstructive sleep apnea) Cardio (+) HTN (hypertension), benign Endo (+) Type 2 diabetes mellitus GI (+) Morbid (severe) obesity due to excess calories (CMS/HCC) Neuro/Psych (+) Absence seizure (CMS/HCC) (+) History of hysterectomy Pulmonary (+) Chronic obstructive pulmonary disease, unspecified (CMS/HCC) ALLERGIES Allergies[1] NPO STATUS Date of Last Liquid: 07/13/25 Time of Last Liquid: 2300 Date of Last Solid: 07/13/25 Time of Last Solid: 2200 Last Intake Type: Clear fluids Time of Last Void: (Iqbal) Past Medical History[2] AIRWAY HISTORY Airway Detailed Review Displaying the 20 most recent records Date Difficult Airway Blade Size ETT Size C-L Class Final Type Intubation Method 07/11/25 No 3 7.5 grade I - full view of glottis endotracheal airway direct laryngoscopy 07/10/25 No 07/08/25 No 2 7.5 grade I - full view of glottis endotracheal airway direct laryngoscopy MEDICATIONS Outpatient Current Outpatient Medications Medication Instructions [...] capsule 1 tablet, Daily Scheduled Current Scheduled Medications[3] PRNs Current PRN Medications[4] SURGICAL HX: Surgical History[5] SOCIAL HX: Social History[6] OBJECTIVE DATA LABS Lab Results Component Value Date WBC 21.20 (H) 07/14/2025 HGB 9.2 (L) 07/14/2025 HCT 29.4 (L) 07/14/2025 MCV 87 07/14/2025 PLT 314 07/14/2025 Lab Results Component Value Date CALCIUM 8.7 (L) 07/14/2025 BUN 16 07/14/2025 CREATININE 0.61 07/14/2025 BCR 26 07/14/2025 NA 138 07/14/2025 K 3.2 (L) 07/14/2025 CL 96 (L) 07/14/2025 CO2 33 (H) 07/14/2025 Type and Screen No results found for: ABO Results from last 7 days Lab Units 07/08/25 2353 APTT sec 25 INR 1.2* Lab Results Component Value Date HGBA1C 7.5 (H) 07/09/2025 Lab Results Component Value Date PGLU 143 (H) 07/14/2025 GLUCOSE 191 (H) 07/14/2025 ABG Lab Results Component Value Date PHART 7.28 (L) 07/08/2025 [id number] 53 (H) 07/08/2025 PO2ART 152 (H) 07/08/2025 SO2ART 99 (H) 07/08/2025 BEART -2.3 (L) 07/08/2025 [id number] 28 (H) 07/10/2025 HCTART 33.0 (L) 07/08/2025 SODIUMART 131 (L) 07/08/2025 POTASSIUMART 3.8 07/08/2025 POCTCL 98 07/08/2025 POCGLU 418 (H) 07/08/2025 IONCALART 4.9 07/08/2025 LACTATE 1.7 (H) 07/10/2025 Lab Results Component Value Date PH 7.30 (L) 07/10/2025 PCO2 57 (H) 07/10/2025 PO2 80 (L) 07/10/2025 [id number] 95 07/10/2025 BASEEXC 1.1 07/10/2025 HCTSYR 31.5 (L) 07/10/2025 KSYR 3.9 07/10/2025 CLSYR 103 07/10/2025 GLUSYR 206 (H) 07/10/2025 CAION 5.0 07/10/2025 LACTATE 1.7 (H) 07/10/2025 ECHO No echocardiogram results found for the past 12 months PFTs No results found for: DMD5HON , IMU3CBZE , XJV1UJG , FVCPRED BP Readings from Last 5 Encounters: 07/14/25 120/75 07/08/25 97/56 02/29/24 101/66 08/31/23 98/56 Physical Exam Airway Mallampati: II Cardiovascular Rhythm: regular Rate: normal Dental Pulmonary Breath sounds clear to auscultation Neurological Skin Musculoskeletal Extremities Anesthesia Plan ASA 3 Plan was reviewed with: MANAGER PLAN Anesthesia technique(s) discussed with the patient/family: general Anesthesia plan agreed upon was: general Anesthetic plan and risks discussed with patient. Use of blood products discussed with patient who. Anesthesia Evaluation [1] Allergies Allergen Reactions Alprazolam Other - please document in the comment field Bupropion Anaphylaxis Aspirin Hives and Rash Doxycycline Hives and Rash Penicillins Hives and Rash Diazepam Other - please document in the comment field Makes her mean [2] Past Medical History: Diagnosis Date Anxiety Asthma Carpal tunnel syndrome Depression Diabetes ([facility]/HCC) H/O absence seizures Hidradenitis High cholesterol Hypertension Postoperative pain 07/13/2025 Sleep apnea Smoker [3] [Transfer Hold] acetaminophen, 1,000 mg, Oral, q6h MARIBELL [Transfer Hold] DULoxetine, 60 mg, Oral, Daily [Transfer Hold] enoxaparin, 40 mg, Subcutaneous, BID [Transfer Hold] insulin glargine-yfgn, 10 Units, Subcutaneous, Nightly [Transfer Hold] insulin lispro, 0-5 Units, Subcutaneous, TID with meals [Transfer Hold] insulin lispro, 0-3 Units, Subcutaneous, Twice at night [Transfer Hold] ipratropium-albuterol, 3 mL, Nebulization, q6h RT [Transfer Hold] Jose, 1 packet, Oral, BID [Transfer Hold] lamoTRIgine, 100 mg, Oral, Nightly [Transfer Hold] linezolid, 600 mg, Oral, BID [Transfer Hold] methocarbamol, 750 mg, Oral, TID [Transfer Hold] metoprolol tartrate, 25 mg, Oral, BID [Transfer Hold] polyethylene glycol, 17 g, Oral, Daily [Transfer Hold] rosuvastatin, 20 mg, Oral, Nightly [Transfer Hold] senna-docusate, 1 tablet, Oral, BID Insert peripheral IV, , , Once AND Saline lock IV, , , Once AND sodium chloride, 10 mL, Intravenous, q12h AND sodium chloride, 10 mL, Intravenous, PRN [Transfer Hold] sodium chloride, 10 mL, Intravenous, q12h [4] PRN medications: [Transfer Hold] albuterol, [Transfer Hold] glucose OR [Transfer Hold] dextrose 10 % OR [Transfer Hold] dextrose 10 % OR [Transfer Hold] glucagon (human recombinant), [Transfer Hold] HYDROmorphone, [Transfer Hold] ondansetron ODT OR [Transfer Hold] ondansetron OR [DISCONTINUED] ondansetron, [Transfer Hold] oxyCODONE OR [Transfer Hold] oxyCODONE, [Transfer Hold] sodium chloride, Insert peripheral IV AND Saline lock IV AND sodium chloride AND sodium chloride, [Transfer Hold] sodium chloride [5] Past Surgical History: Procedure Laterality Date CARPAL TUNNEL RELEASE 2 carpal tunnel surgeries - Aug CHOLECYSTECTOMY 1995 HAND SURGERY Left 2022 carpal tunnel HYSTERECTOMY 2005 TONSILECTOMY, ADENOIDECTOMY, BILATERAL MYRINGOTOMY AND TUBES 1991 [6] Social History Tobacco Use Smoking status: Every Day Current packs/day: 1.00 Types: Cigarettes Smokeless tobacco: Never Vaping Use Vaping status: Never Used Substance Use Topics Alcohol use: Not Currently Drug use: Yes Types: Marijuana documented in this encounter Plan of Treatment Upcoming Encounters Date Type Department Care Team ([facility] st Contact Info) Description 11/19/2025 8:20 AM EST Office Visit Medical Office Building Urology [address], [address] [place] [id number] Marj Matamoros E, LEADITE MAN [address] [place] [address] documented as of this encounter Procedures Procedure Name Priority Date/Time Associated Diagnosis Comments PB ANESTHESIA PLACEHOLDER Routine 07/14/2025 2:53 PM EDT TX AN ELECTIVE ENDOTRACHEAL AIRWAY Routine 07/14/2025 2:53 PM EDT documented in this encounter Results * TX AN ELECTIVE ENDOTRACHEAL AIRWAY, PB ANESTHESIA PLACEHOLDER (07/14/2025 2:53 PM EDT) Narrative Azul Eisenberg CRNA, DNP - 07/14/2025 2:53 PM EDT Azul Eisenberg CRNA, DNP 07/14/2025 3:04 PM Airway Date/Time: 07/14/2025 2:53 PM Reason: elective Airway not difficult General Information and Staff Patient location during procedure: OR MANAGER PLAN: Azul Eisenberg CRNA, DNP Performed: MANAGER PLAN Patient Condition Indications for airway management: anesthesia Patient position: ramp Final Airway Details Final airway type: endotracheal airway Successful airway: ETT Cuffed: yes Successful intubation technique: direct laryngoscopy Adjuncts used in placement: intubating stylet and cricoid pressure Endotracheal tube insertion site: oral Blade: Codi Blade size: #4 ETT size (mm): 7.0 Cormack-Lehane Classification: grade IIa - partial view of glottis Placement verified by: chest auscultation and capnometry Measured from: lips Additional Comments Atraumatic. No change to dentition. Sharif Taylor MD ANESTHESIA ORDERABLES Final Re sult documented in this encounter Visit Diagnoses Not on filedocumented in this encounter Administered Medications Inactive Administered Medications - up to 3 most recent administrations Medication Order MAR Action Action Date Dose Rate Site ceFAZolin (Ancef) injection Intravenous, As needed, Starting on 07/14/25 at 1522, Until 07/14/25 at 1624, Routine, Anesthesia Intraprocedure Given 07/14/2025 3:22 PM EDT 3 g fentaNYL (Sublimaze) injection Intravenous, As needed, Starting on 07/14/25 at 1451, Until 07/14/25 at 1624, Routine, Anesthesia Intraprocedure Given 07/14/2025 2:51 PM EDT 100 mcg HYDROmorphone PF (Dilaudid) injection Intravenous, As needed, Starting on 07/14/25 at 1530, Until 07/14/25 at 1624, Routine, Anesthesia Intraprocedure Given 07/14/2025 4:01 PM EDT 0.5 mg Given 07/14/2025 3:45 PM EDT 0.2 mg Given 07/14/2025 3:30 PM EDT 0.3 mg lactated Ringer's infusion Intravenous, Continuous PRN, Starting on 07/14/25 at 1451, Until 07/14/25 at 1624, Routine New Bag 07/14/2025 2:51 PM EDT lidocaine PF (Xylocaine) 2 % injection Intravenous, As needed, Starting on 07/14/25 at 1451, Until 07/14/25 at 1624, Routine, Anesthesia Intraprocedure Given 07/14/2025 2:51 PM EDT 80 mg propofol (Diprivan) injection Intravenous, As needed, Starting on 07/14/25 at 1451, Until 07/14/25 at 1624, Routine, Anesthesia Intraprocedure Given 07/14/2025 2:51 PM EDT 200 mg rocuronium (ZeMuron) injection Intravenous, As needed, Starting on 07/14/25 at 1451, Until 07/14/25 at 1624, Routine, Anesthesia Intraprocedure Given 07/14/2025 2:59 PM EDT 40 mg Given 07/14/2025 2:51 PM EDT 10 mg succinylcholine (Anectine) injection Intravenous, As needed, Starting on 07/14/25 at 1451, Until 07/14/25 at 1624, Routine, Anesthesia Intraprocedure Given 07/14/2025 2:51 PM EDT 120 mg sugammadex (Bridion) 100 MG/ML injection Intravenous, As needed, Starting on 07/14/25 at 1600, Until 07/14/25 at 1624, Routine, Anesthesia Intraprocedure Given 07/14/2025 4:00 PM EDT 400 mg documented in this encounter Additional Health Concerns Assessment Noted Time PHQ-9 Depression Total Score: 16 023 9:36 AM EDT A fall risk assessment has been complete d for the patient 08/31/2023 9:38 AM EDT A Body Mass Index follow-up plan has been documented for the patient 07/19/2025 10:51 AM EDT documented as of this encounter Care Teams Prehemmer Relationship Specialty Start Date End Date Yenny Dhillon APRN [address] [place] [address] PCP - General 07/22/23 documented as of this encounter
--- OUTSIDE RECORDS SUMMARY | 2025-08-03 17:34 | XMS_ITS | Encounter Summary ---
Author Organization Healthcare Address [address] [place] [address] Care Team Providers Care Voip Technician Name Role Phone Yenny Dhillon APRN Primary Care Provider [phone] Reason for Visit * Reason Comments Wound Check Encounter Details Date Type Department Care Team ([facility] st Contact Info) Description 08/03/2025 5:34 PM EDT - 08/03/2025 9:28 PM EDT Emergency [facility] Emergency Department [address] [place] [address] Luis Cotto MD [address] [place] [address] Necrotizing fasciitis (CMS/HCC) (Primary Dx); Encounter for [...] any time in the past 12 m [facility], were you homeless or living in a nursing home (including now)? No 07/15/2025 [facility] Utilities Answer Date Recorded In the past 12 months has th e [employer], gas, oil, or water company threatened to [...] Risk Indicated 08/03/2025 5:44 PM EDT Brittany Hernández RN * Question Answer Date of Assessment Author 1. Wish to be (Past 1 Month) No 08/03/2025 5:44 PM EDT Annie Toledo RN 2. Non-Specific Active Suicidal Thoughts (Past 1 Month) No 08/03/2025 5:44 PM EDT Annie Toledo RN 6. Suicidal Behavior (Lifetime) No 08/03/2025 5:44 PM EDT Annie Toledo RN documented as of this encounter Discharge [...] result, infection, nerve damage and incomplete drainage [place] protocol: Patient identity confirmed: Verbally with patient Procedure details: Indications: open wounds Wound location: Leg Leg location: R upper leg Wound age (days): >14 Dressing: Packing/drain action: packing change Packing material: Iodoform 1/2 inch Dressing applied: Gelfoam large Post-procedure details: Procedure completion: Tolerated Comments: Wound vac replaced with 5 pieces total - to patient's home vac and canister Cosigned by Ghanshyam Gary DO at 08/07/2025 6:19 AM EDT Associated [...] suppurativa, tobacco use, recurrent UTI's, presenting to [facility] on 08/03/2025 with need for a [...] incontinence (Chronic) Stress incontinence DM (diabetes mellitus) ([facility]) (Chronic) Overview Addendum 07/09/2025 4:11 PM by Lidia Ellis MD - Patient hyperglycemic, up to 300s. - Insulin drip per protocol. Hidradenitis (Chronic) Absence seizure ([facility]) (Chronic) Overview Addendum 07/11/2025 9:20 AM by [...] - Improving, continue to monitor Septic shock ([facility]) Overview Addendum 07/12/2025 1:55 PM by Gabriel [...] On 6 L NC, smoker Necrotizing fasciitis (CMS/HCC) Overview Addendum 07/12/2025 1:54 [...] documented. * ED Provider Notes - Izzy Hobbs MD - 08/03/2025 5:11 PM EDT - [...] vomiting, and diarrhea. Main ED: I Trinh Hobbs MD agree with the above PIT documentation. I personally performed my own history, physical exam, and medical decision making. Additional history obtained to be listed in ED Course. 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 Comments: Awake Psychiatric: Behavior: Behavior normal. Dileep Coma Scale Score: 15 ED Course & [...] General Surgery Once Provider: (Not yet assigned) Acknowledged IZZY HOBBS ED Course as of 08/03/25 1840 Sat Aug 03, 2025 1824 Upon initial evaluation, patient is well-appearing and [...] [PA] ED Course User Index [PA] Izzy Hobbs MD Social Determinates of Health Risks (including [...] Anxiety Asthma Carpal tunnel syndrome Depression Diabetes ([facility]) H/O absence seizures Hidradenitis High cholesterol Hypertension [...] the comment field Makes her mean Izzy Hobbs MD Resident 08/03/25 1840 Cosigned by Luis [...] TRANSFER OF CARE NOTE Transferring provider: Izzy Hobbs MD Transferring attending: meena RAYRAY Time: 1700 [...] [PA] ED Course User Index [PA] Izzy Hobbs MD Clinical Impressions as of 08/03/252116 Necrotizing [...] Visit Medical Office Building Urology [address], [address] [place] [address] Saturnino Marj Lora, RADIAL DRILL PRESS SET UP OPERATOR [address] [place] [address] documented as of this encounter [...] result, infection, nerve damage and incomplete drainage [place] protocol: Patient identity confirmed: Verbally with patient [...] documented as of this encounter Care Teams Voip Technician Relationship Specialty Start Date End Date Yenny Dhillon APRN [address] [place] [address] PCP - General 07/22/23 documented as of this encounter
--- OUTSIDE RECORDS SUMMARY | 2025-08-05 13:10 | XMS_ITS | Encounter Summary ---
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 She had a ER visit with [...] provider verified the correct patient, procedure, equipment, learning support aide, and site/side marked as required. Debridement Details [...] Description 08/21/2025 3:30 PM EDT Clinical Support [facility] [address] [place] [address] 08/23/2025 3:30 PM EDT Clinical Support 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) Localized tissue (HCC) Other specified local infections of the skin and subcutaneous tissue SD DEBRIDEMENT SUBCUTANEOUS TISSUE EA ADDL 20 SQ CM Routine 08/05/2025 1:10 PM EDT 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) Localized tissue (HCC) Other specified local infections of the skin and subcutaneous tissue SD DEBRIDEMENT SUBCUTANEOUS TISSUE EA ADDL 20 SQ CM Routine 08/05/2025 1:10 PM EDT 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) Localized tissue (HCC) Other specified local infections of the skin and subcutaneous tissue SD DEBRIDEMENT SUBCUTANEOUS TISSUE EA ADDL 20 SQ CM Routine 08/05/2025 1:10 PM EDT 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) Localized tissue (HCC) Other specified local infections of the skin and subcutaneous tissue SD DEBRIDEMENT SUBCUTANEOUS TISSUE EA ADDL 20 SQ CM Routine 08/05/2025 1:10 PM EDT 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) Localized tissue (HCC) Other specified local infections of the skin and subcutaneous tissue SD DEBRIDEMENT SUBCUTANEOUS TISSUE EA ADDL 20 SQ CM Routine 08/05/2025 1:10 PM EDT 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) Localized tissue (HCC) Other specified local infections of the skin and subcutaneous tissue SD DEBRIDEMENT SUBCUTANEOUS TISSUE EA ADDL 20 SQ CM Routine 08/05/2025 1:10 PM EDT 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) Localized tissue (HCC) Other specified local infections of the skin and subcutaneous tissue SD DEBRIDEMENT SUBCUTANEOUS TISSUE EA ADDL 20 SQ CM Routine 08/05/2025 1:10 PM EDT 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) Localized tissue (HCC) Other specified local infections of the skin and subcutaneous tissue SD DEBRIDEMENT SUBCUTANEOUS TISSUE EA ADDL 20 SQ CM Routine 08/05/2025 1:10 PM EDT 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) Localized tissue (HCC) Other specified local infections of the skin and subcutaneous tissue SD DEBRIDEMENT SUBCUTANEOUS TISSUE EA ADDL 20 SQ CM Routine 08/05/2025 1:10 PM EDT 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) Localized tissue (HCC) Other specified local infections of the skin and subcutaneous tissue SD DEBRIDEMENT SUBCUTANEOUS TISSUE EA ADDL 20 SQ CM Routine 08/05/2025 1:10 PM EDT 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) Localized tissue (HCC) Other specified local infections of the skin and subcutaneous tissue SD DEBRIDEMENT SUBCUTANEOUS TISSUE 1ST 20 SQ CM/< Routine 08/05/2025 1:10 PM EDT 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) Localized tissue (HCC) Other specified local infections of the skin and subcutaneous tissue documented in this encounter Results * SD DEBRIDEMENT SUBCUTANEOUS TISSUE 1ST 20 SQ CM/<, SD DEBRIDEMENT SUBCUTANEOUS TISSUE EA ADDL 20SQ CM, SD DEBRIDEMENT SUBCUTANEOUS TISSUE EA ADDL 20 SQ CM, SD DEBRIDEMENT SUBCUTANEOUS TISSUE EA ADDL 20 SQ CM, SD DEBRIDEMENT SUBCUTANEOUS TISSUE EA ADDL 20 SQ CM, SD DEBRIDEMENT SUBCUTANEOUS TISSUE EA ADDL 20 SQ CM, SD DEBRIDEMENT SUBCUTANEOUS TISSUE EA ADDL 20 SQ CM, SD DEBRIDEMENT SUBCUTANEOUSTISSUE EA ADDL 20 SQ CM, SD DEBRIDEMENT SUBCUTANEOUS TISSUE EA ADDL 20 SQ CM, SD DEBRIDEMENT SUBCUTANEOUS TISSUE EA ADDL 20 SQ CM, SD DEBRIDEMENT SUBCUTANEOUS TISSUE EA ADDL 20 SQ CM, SD DEBRIDEMENT S UBCUTANEOUS TISSUE EA ADDL 20 SQ CM, SD DEBRIDEMENT SUBCUTANEOUS TISSUE EA ADDL 20 SQ [...] provider verified the correct patient, procedure, equipment, learning support aide, and site/side marked as required. Debridement Details [...] Response to treatment: procedure was tolerated well Sukhdev Bazan Jr., MD PROCEDURE/MINOR SURGICAL ORDERABLES [...] uncontrolled documented in this encounter Care Teams Sap Fico Business Analyst Relationship Specialty Start Date End Date Yenny Dhillon APRN [address] [place] [address] PCP - General Nurse Practitioner 03/13/24 documented as of this encounter
--- OUTSIDE RECORDS SUMMARY | 2025-08-07 13:00 | XMS_ITS | Encounter Summary ---
Author Organization [employer] ([place], [place], [place], [place]) Address [address] [place] [address] Care Team Providers Care Credit Collections Manager Name Role Phone Roxanne Dhillonissa GLORIA Primary Care Provider [phone] Reason for Visit * Reason Comments Wound Care Nurse visit for woun d care, wound vac and dressing change Encounter Details Date Type Department Care Team (Late st Contact Info) Description 08/07/2025 1:00 PM EDT Clinical Support [facility] 1 [place] [address] Sukhdev Bazan Jr., MD [address] [place] [phone] Non-pressure chronic ulcer of skin of [...] Date Franko rded Speak language other than Puerto Rican at home Not on file 12/23/2023 Want help with school or training Not on file 12/23/2023 Substance Use Answer Date Recorded Used prescription meds for non-medical reasons N ot on file 12/23/2023 Used illegal drugs past 12 months Not on file 12/23/2023 Comments Unknown Sex and Gender Information Value Date Recorded Sex Assigned at Not on file 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 Gender Identity Not on file Sexual Orientation [...] Description 08/21/2025 3:30 PM EDT Clinical Support [facility] 1 [place] [address] 08/23/2025 3:30 PM EDT Clinical Support [facility] [address] [place] [address] documented as of this encounter Visit Diagnoses Diagnosis 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
--- OUTSIDE RECORDS SUMMARY | 2025-08-09 10:45 | XMS_ITS | Encounter Summary ---
Author Organization [employer] ([place], [place], [place], [place]) Address [address] [place] [address] Care Team Providers Care Knife Setter Name Role Phone Yenny Dhillon APRN Primary Care Provider [phone] Reason for Visit * Reason Comments Wound Care Nurse visit for woun d care, wound vac and dressing change Encounter Details Date Type Department Care Team (Late st Contact Info) Description 08/09/2025 10:45 AM EDT Clinical Support [facility] [address] [place] [address] Sukhdev Bazan Jr., MD [address] [place] [phone] Non-pressure chronic ulcer of skin of [...] Date Franko rded Speak language other than Maltese at home Not on file 12/23/2023 Want help with school or training Not on file 12/23/2023 Substance Use Answer Date Recorded Used prescription meds for non-medical reasons N ot on file 12/23/2023 Used illegal drugs past 12 months Not on file 12/23/2023 Comments Unknown Sex and Gender Information Value Date Recorded Sex Assigned at Not on file 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 Gender Identity Not on file Sexual Orientation [...] Description 08/21/2025 3:30 PM EDT Clinical Support [facility] [address] [place] [address] 08/23/2025 3:30 PM EDT Clinical Support [facility] [place] [address] [place] [address] documented as of this encounter Visit Diagnoses Diagnosis 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
--- OUTSIDE RECORDS SUMMARY | 2025-08-12 09:30 | XMS_ITS | Continuity of Care Document ---
Author Organization [facility] Address [address] [place] [address] Phone Care Team Providers Care Jaw Skinner Name Role Phone Jovan WHITFIELD, Kristy Unavailable [...] nostril as needed 50-100 MCG - Active levofloxacin 500 mg tablet take 1 tablet by oral route every 24 hours 500 MG - Active oxycodone 10 mg tablet TAKE [...] Location Reason(s) For Visit Diagnoses Date Provider [facility], [address] [place] [address], [facility], tel:[phone] [facility] No Information 5 Jovan Wagner. [address], [place], [id number] , [place]. tel:[phone] [facility], [address] [place] [address], [address], tel:[phone] [facility] HRSSal SAMUELS ED/hospital f/u (chief complaint) Hidradenitis suppurativaNicotine dependence, cigarettes, uncomplicatedBody mass index [BMI] 45.0-49.9, adultEssential (primary) hypertension 5 Dhillon Yenny. [address] [place], [place], [address] [place] [address] , . tel: [phone] [facility], [address] [place] [address], [facility], tel:[phone] [facility] [place] Fasting Labs (chief complaint) Essential (primary) hypertension 5 Dhillon Yenny. [address] [place], [place], [id number] , . tel:[phone] [facility], [address] [place] [address], [facility], tel:[phone] [facility] [place] No Information 5 Dhillon Yenny. [address] [place], [place], [address] [place] [address] , . tel: [facility], [address] [place] [address], [facility], tel:[phone] [facility] [place] No Information 5 Dhillon Yenny. [address] [place], [place], [address] [place] [address] , . tel:[phone] [facility], [address] [place] [address], [facility], tel:[phone] [facility] [place] No Information 0 5 Dhillon Yenny. [address] [place] [address], [id number] , . tel:[phone] [facility], [address] [place] [address], [facility], tel:[phone] [facility] [place] Lumps on Leg (chief complaint) Body mass index [BMI] 50.0-59.9, adultDisorder of vein, unspecified 5 Dhillon Yenny. [address] [place], [place], [id number] , . tel: [phone] [facility], [address] [place] [address], [facility], tel:[phone] [facility] No Information 5 Dhillon Yenny. [address] [place], [place], [id number] , [place]. tel: [phone] [facility], [address] [place] [address], [facility], tel:[phone] [facility] [place] f/u on labs (chief complaint) Encntr screen mammogram for malignant neoplasm of breastAbdominal painEssential (primary) hypertensionHyperli pidemiaNicotine dependence, cigarettes, uncomplicatedObesit yType 2 diabetes mellitus w/ diabetic neuropathyVitamin B12 deficiencyVitamin D deficiencyUTIAcute upper respiratory infection, unspecifiedBody mass index [BMI] 50.0-59.9, adult Dhillon Yenny. [address] [place], [place], [id number] , [place]. tel: [phone] [facility], [address] [place] [address], [facility], tel:[phone] [facility] complex f/u (chief complaint)Prepar e (chief complaint)Depres jaydon Screening (chief complaint) Extreme povertyAsthmaDepres sionEssential (primary) hypertensionNicotin e dependence, cigarettes, uncomplicatedObesit yType 2 diabetes mellitus w/ diabetic neuropathyAbdominal painEncounter for screening for depression 5 Dhillon Yenny. [address] [place], [place], [id number] , [place]. tel: [phone] [facility], [address] [place] [address], [facility], [place] tel:[phone] [facility] [place] Medication refills (chief complaint) Essential (primary) hypertensionBody mass index [BMI] 50.0-59.9, adultChronic constipationDepress ionAsthmaNicotine dependence, cigarettes, uncomplicatedObesit yType 2 diabetes mellitus w/ diabetic neuropathyVitamin B12 deficiencyVitamin D deficiency 4 Dhillon Yenny. [address] [place], [place], [id number] , [place]. tel: [phone] [facility], [address] [place] [address], [facility], tel:[phone] [facility] [place] routine lab collection (chief complaint) No Information 4 Dhillon Yenny. [address] [place], [place], [address] [place] [address] , [place]. tel: [phone] [facility], [address] [place] [address], [facility], tel:[phone] [facility] [place] LOWER BACK PAIN (chief complaint) Body mass index [BMI] 45.0-49.9, adultSciatica, right sideLow back painVitamin B12 deficiency 4 Dhillon Yenny. [address] [place], [place], [id number] , [place]. tel: [phone] [facility], [address] [place] [address], [facility], tel:[phone] [facility] [place] f/u labs (chief complaint) Vitamin B12 deficiencyBody mass index [BMI] 45.0-49.9, adultEssential (primary) hypertensionHyperli pidemiaMemory lossNicotine dependence, cigarettes, uncomplicatedObesit yType 2 diabetes mellitus w/ diabetic neuropathyVitamin D deficiencyEncntr screen mammogram for malignant neoplasm of breast 4 Dhillon Yenny. [address] [place], [place], [id number] , [place]. tel:[phone] [facility], [address] [place] [address], [facility], [place] tel:[phone] [facility] [place] Fasting Labs (chief complaint) Essential (primary) hypertension 4 Dhillon Yenny. [address] [place], [place], [address] , [place]. tel: [phone] [facility], [address] [place] [address], [facility], [place] tel:[phone] [facility] [place] B12 injection (chief complaint) Vitamin B12 deficiency 4 Dhillon Yenny. [address] [place], [place], [id number] , [place]. tel: [phone] [facility], [address] [place] [address], [facility], tel:[phone] [facility] [place] Blood in stool (chief complaint)eructa tion (chief complaint)back pain f/u MRII (chief complaint) Anxiety disorder, unspecifiedAsthmaEs sential (primary) hypertensionLow back painExtreme povertyBody mass index [BMI] 45.0-49.9, adultEructation 4 Dhillon Yenny. [address] [place], [place], [id number] , [place]. tel: [phone] [facility], [address] [place] [address], [facility], [place] tel:[phone] [facility] [place] B12 INJECTION (chief complaint) Vitamin B12 deficiency Fe- 4 Dhillon Yenny. [address] [place], [place], [id number] , [place]. tel:[phone] [facility], [address] [place] [address], [facility], [place] tel:[phone] [facility] [place] f/u on labs (chief complaint) Vitamin B12 deficiencyBody mass index [BMI] 45.0-49.9, adultLow back painType 2 diabetes mellitus w/ diabetic neuropathyHyperlipi demiaNicotine dependence, cigarettes, uncomplicated 4 Dhillon Yenny. [address] [place], [place], [address] , [place]. tel:[phone] [facility], [address] [place] [address], [facility], tel:[phone] [facility] [place] FASTING LABS (chief complaint) Essential (primary) hypertension 4 Dhillon Yenny. [address] [place], [place], [address] , [place]. tel: [phone] [facility], [address] [place] [address], [facility], tel:[phone] [facility] [place] f/u back pain (chief complaint) Low back painNicotine dependence, cigarettes, uncomplicatedSciati ca, right sideVitamin B12 deficiencyBody mass index [BMI] 45.0-49.9, adultAcute serous otitis media, bilateral 3 Dhillon Yenny. [address] [place], [place], [address] , [place]. tel: [phone] [facility], [address] [place] [address], [facility], tel:[phone] [facility] [place] back pain (chief complaint)other (chief complaint) Sciatica, right sideLow back painBody mass index [BMI] 45.0-49.9, adult 3 Dhillon Yenny. [address] [place], [place], [address] , [place]. tel: [phone] [facility], [address] [place] [address], [facility], [place] tel:[phone] [facility] [place] B12 INJECTION (chief complaint) Vitamin B12 deficiency 3 Dhillon Yenny. [address] [place], [place], [address] , . tel:[phone] [facility], [address] [place] [address], [facility], tel:[phone] [facility] [place] B12 INJECTION (chief complaint) Vitamin B12 deficiency Oct- 3 Dhillon Yenny. [address] [place], [place], [address] , [place]. tel: [phone] [facility], [address] [place] [address], [facility], tel:[phone] [facility] [place] follow up labs (chief complaint) Body mass index [BMI] 50.0-59.9, adultType 2 diabetes mellitus w/ diabetic neuropathyVitamin B12 deficiencyEssential (primary) hypertensionDepress ionAsthmaNicotine dependence, cigarettes, uncomplicated Aug-0 3 Dhillon Yenny. [address] [place], [place], [address] , [place]. tel: [phone] [facility], [address] [place] [address], [facility], tel:[phone] [facility] [place] fasting labs (chief complaint) Memory lossVitamin B12 deficiencyNicotine dependence, cigarettes, uncomplicatedBody mass index [BMI] 50.0-59.9, adult Sep-2 3 Dhillon Yenny. [address] [place], [place], [address] , [place]. tel: [phone] [facility], [address] [place] [address], [facility], [place] tel:[phone] [facility] [place] nocturia (chief complaint) NocturiaStress incontinence (female) (male)Urinary urgencyUTIBody mass index [BMI] 50.0-59.9, adult Sep-0 3 Dhillon Yenny. [address] [place], [place], [address] , [place]. tel: [phone] [facility], [address] [place] [address], [facility], [place] tel:[phone] [facility] [place] INJECTION (chief complaint) Vitamin B12 deficiency 3 Dhillon Yenny. [address] [place], [place], [address] , [place]. tel: [phone] [facility], [address] [place] [address], [facility], tel:[phone] [facility] [place] Follow up from Hospitalization (chief complaint) Body mass index [BMI] 50.0-59.9, adultAcute kidney injuryDehydrationCh ronic constipationEssenti al (primary) hypertension 3 Dhillon Yenny. [address] [place], [place], [address] , [place]. tel: [phone] [facility], [address] [place] [address], [facility], tel:[phone] [facility] [place] Injection (chief complaint) Vitamin B12 deficiency 3 Dhillon Yenny. [address] [place], [place], [address] , [place]. tel: [phone] [facility], [address] [place] [address], [facility], tel:[phone] [facility] [place] FOLLOW UP ON LABS (chief complaint) Vitamin B12 deficiencyBody mass index [BMI] 50.0-59.9, adultAnxiety disorder, unspecifiedAsthmaEs sential (primary) hypertensionMorbid (severe) obesity due to excess caloriesNicotine dependence, cigarettes, uncomplicatedPain in left kneePain in right kneeType 2 diabetes mellitus w/ diabetic neuropathy 3 Dhillon Yenny. [address] [place], [place], [address] , [place]. tel: [phone] [facility], [address] [place] [address], [facility], tel:[phone] [facility] [place] FASTING LABS (chief complaint)B12 INJECTION (chief complaint) Essential (primary) hypertensionDeficie ncy of other specified B group vitamins 3 Dhillon Yenny. [address] [place], [place], [address] , [place]. tel: [phone] [facility], [address] [place] [address], [facility], tel:[phone] [facility] [place] complex f/u (chief complaint) Vitamin B12 deficiencyType 2 diabetes mellitus w/ diabetic neuropathyObesityNi cotine dependence, cigarettes, uncomplicatedHidrad enitis suppurativaEssentia l (primary) hypertensionAsthmaE ncounter for other preprocedural examination 3 Dhillon Yenny. [address] [place], [place], [address] , [place]. tel: [phone] [facility], [address] [place] [address], [facility], tel:[phone] [facility] [place] Leg wound (chief complaint)Discus s diabetic shoes. (chief complaint) Vitamin B12 deficiencyType 2 diabetes mellitus w/ diabetic neuropathyBody mass index [BMI] 50.0-59.9, adultHidradenitis suppurativaEssentia l (primary) hypertensionCutaneo us abscess Feb-0 3 Dhillon Yenny. [address] [place], [place], [address] , [place]. tel: [phone] [facility], [address] [place] [address], [facility], [place] tel:[phone] [facility] [place] B12 injection (chief complaint) Vitamin B12 deficiency Jan-2 3 Dhillon Yenny. [address] [place], [place], [address] , [place]. tel: [phone] [facility], [address] [place] [address], [address], [place] tel:[phone] [facility] [place] follow up (chief complaint) Vitamin B12 deficiency Mar-2 3 Dhillon Yenny. [address] [place], [place], [address] , [place]. tel: [phone] [facility], [address] [place] [address], [facility], [place] tel:[phone] [facility] [place] b12 # 3 of 6 (chief complaint) Vitamin B12 deficiency Jan- 3 Dhillon Yenny. [address] [place], [place], [address] , [place]. tel: [phone] [facility], [address] [place] [address], [facility], [place] tel:[phone] [facility] [place] follow up on labs (chief complaint) Vitamin B12 deficiencyBody mass index [BMI] 50.0-59.9, adultPain in left kneePain in right kneeAcute upper respiratory infection, unspecifiedParesthe kalpesh of skinObesityDepressi onChronic constipationPrediab etesNicotine dependence, cigarettes, uncomplicated Mar-0 - 3 Dhillon Yenny. [address] [place], [place], [address] , [place]. tel: [phone] [facility], [address] [place] [address], [facility], [place] tel:[phone] [facility] [place] b12 # 1 of 6 (chief complaint) Vitamin B12 deficiency Feb- 3 Dhillon Yenny. [address] [place], [place], [address] , [place]. tel: [phone] [facility], [address] [place] [address], [facility], [place] tel:[phone] [facility] [place] Establish care (chief complaint) Encounter for screening for depressionEncounter for screening examination for other mental health and behavioral disordersAnxiety disorder, unspecifiedDepressi onAsthmaVitamin D deficiencyEssential (primary) hypertensionPrediab etesChronic constipationBody mass index [BMI] 50.0-59.9, adultNicotine dependence, cigarettes, uncomplicatedMorbid (severe) obesity due to excess calories 3 Alejo Ramon. [address] [place] [address], [id number] , . tel: [phone] Family History Family Member Type Diagnosis Age [...] Record Payers Payer name Insurance type Covered green party ID Authoriza tion(s) [facility]- Medicaid [employer] CI [id number] [facility]- Medicaid [employer] are Wrap Pay ZZ [id number] [facility]- Covered Under [place] [id number] Hch- Covered Under [place] CI [id number] Hch- Covered Under [place] CI [id number] Hch- Covered Under [place] CI [id number] Social History Type Description Quantity Date Captured [...] due Goal CBC. Due on due Goal TSH. Due on due Goal Tobacco screening. Due on due Goal HIV screen due Goal CMP. Due on due Goal HPV testing. Due on due Goal Hep B (). Due on due Goal Lipid panel. Due on 026 due Goal Urine microalbumin. Due on due [...] cine. Due on due Goal Tobacco Use Cess [...] - 7 (SONDRA-7). Due on due Goal Hepatitis C Screening due Goal Hemoglobin (Pree tea/HR 9 months). Due on due Goal Hematocrit/Hemog lobin. Due on due Goal GFR. Due on due Goal Dilated eye exam. Due on March due Goal Foot exam. Due on due Goal Taking Statin Me dication. Due on due Goal Hep B (1st). Due on due Goal Lipid panel. Due on 026 due Goal Hepatitis C Screening due Goal Pap/HPV testing. Due on due Goal PAP. Due on due Goal Drug Abuse Scree davy Test (DAST-10). Due on due Goal Unhealthy drug use screening due Goal HIV screen due Goal Diabetes screening. Due on due Goal TSH. Due on due Goal Urine microalbumin. Due on due Goal Vitamin B12. Due on 026 due Goal Obtain Height, W eight, and [...] Lifestyle education regardin g diet completed Goal ECG due Goal Dental exam. Due on due Goal Hemoglobin A1C. Due on due Goal GFR. Due on due Goal ASCVD 10 year risk. Due on due Goal Pneumococcal vac cine. Due on due Goal Lipid panel. Due on due Goal Hep B (). Due on due Goal Dilated eye exam. Due on March due Goal Foot exam. Due on due Goal Obtain blood Pre ssure. Due on due Goal Depression scree davy. Due on due Goal Urinalysis due Goal Taking Statin Me dication. Due on due Goal Urine microalbumin. Due on due Goal Drug Abuse Scree [...] due Goal Lipid 17-20 y due Goal Tobacco screening. Due on due [...] Depression scree davy. Due on due Goal Unhealthy drug use screening due Goal Tobacco Use Scre ening. Due on due Goal ECG due Goal Hepatitis C Screening due Goal Drug Abuse Scree davy Test (DAST-10). Due on due Goal HIV screen due Goal Obtain Height, W eight, and BMI. Due on due Goal Vitamin B12. Due on due Goal Obtain blood Pre ssure. Due on due Goal HPV testing. Due on due Goal CBC. Due on due Goal Hematocrit/Hemog lobin. Due on due Goal Hemoglobin (Pree tea/HR 9 months). Due on due Goal GFR. Due on due Goal Hemoglobin A1C. Due on due Goal Taking Statin Me dication. Due on due Goal Lipid panel. Due on due Goal Hep B (). [...] Scre ening. Due on due Goal Tobacco screening. Due on due Goal CBC. Due [...] Goal ECG due Goal Urinalysis due Goal Vitamin B12. Due on due Goal Lifestyle education regardin g diet completed Goal Lifestyle education regardin g diet completed Goal Tobacco Use Scre ening. Due on due Goal HIV screen due Goal Tobacco Use Cess ation Counseling. Due on due Goal Lipid panel. Due on due Goal Unhealthy drug use [...] Urine microalbumin. Due on due Goal Tobacco screening. Due [...] Due on due Goal Urinalysis due Goal Pneumococcal vac cine. Due on [...] Due on due Goal Urinalysis due Goal GFR. Due on due Goal Generalized Anxi ety Disorder - 7 (SONDRA-7). Due on due Goal ASCVD 10 year risk. Due on due Goal Dental exam. Due on due Goal Tobacco Use Scre ening. Due on due Goal Hepatitis C Screening due Goal CMP. Due on due Goal Foot exam. Due on due Goal Pap/HPV testing. Due on due Goal HPV testing. Due on due Goal HIV screen due Goal Obtain Height, W eight, and BMI. Due on due Goal TSH. Due on due Goal Dilated eye exam. Due on March due Goal Hep B (1st). Due on due Goal Depression scree davy. [...] 10 year risk. Due on due Goal Colonoscopy. Due on due Goal Vitamin D. Due on due Goal CMP. Due on due Goal Tobacco Use Scre ening. Due on due Goal Urine microalbumin. Due on A due Goal Hepatitis C Screening due Goal Foot exam. Due on due Goal GFR. Due on due Goal Unhealthy drug use screening due Goal Dilated eye exam. Due on March due Goal Diabetes screening. Due on A due Goal Tobacco Use Cess ation Counseling. Due on due Goal Vitamin B12. Due on 025 due Goal ECG due Goal HPV testing. Due on 024 [...] 029 due Goal HIV screen due Goal Foot exam. Due on due [...] Goal Colonoscopy. Due on 033 due Goal Hep B (1st). Due on due Goal Dental exam. Due [...] risk. Due on due Goal Hep B (). [...] on due Goal HPV testing. Due on 024 due Goal Dilated eye exam. Due on [...] Foot exam. Due on 4 due Goal Hep B (). Due on [...] Goal Colonoscopy. Due on 033 due Goal Diabetes screening. Due on due Goal Hepatitis C Screening due Goal Unhealthy drug use screening due Goal CMP. Due on due Goal Tobacco Use Cess [...] Depression scree davy. Due on due Goal Generalized Anxi ety Disorder - 7 (SONDRA-7). Due on due Goal Influenza vaccine. Due on due Goal ECG due Goal Urinalysis due Goal CBC. Due on due Goal Foot exam. Due on due Goal Taking Statin Me dication. Due on due Goal ASCVD 10 year risk. Due on due Goal Dental exam. Due on due Goal GFR. Due on due Goal Hep B (). [...] Goal Vitamin D. Due on due Goal Mammogram. Due on [...] Depression scree davy. Due on due Goal HPV testing. Due on due Goal ECG due Goal Diabetes screening. Due on due Goal Colonoscopy. Due on due Goal Vitamin B12. Due on due Goal Urinalysis due Goal PAP. Due on due Goal Obtain blood Pre ssure. Due on due Goal Influenza vaccine. Due on due Goal Lipid panel. Due on due Goal Pneumococcal vac cine. Due on due Goal Lifestyle education regardin g diet completed Goal Tobacco cessation counseling completed Goal Foot exam. Due on due Goal Dilated eye exam. Due on Dec due Goal Hep B (1st). Due on [...] Screening due Goal Lipid panel. Due on due [...] risk. Due on due Goal Hep B (). Due on due Goal Urine microalbumin. Due [...] Goal CMP. Due on due Goal Hemoglobin A1C. Due on due Goal Urine microalbumin. Due on due Goal Foot exam. Due on due Goal GFR. Due on due Goal Hep B (). Due on due Goal Dental exam. Due on due Goal Dilated eye exam. Due on Oct due Goal ASCVD 10 year risk. Due on due Goal Taking Statin Me dication. Due on due Goal Vitamin D. Due on due Goal TSH. Due on due Goal CBC. Due on due Goal HPV. Due on due Goal Colonoscopy. Due on due Goal Diabetes screening. Due on due Goal HPV testing. Due on due Goal Tobacco Use Cess ation Counseling. Due on due Goal HIV screen due Goal Drug Abuse Scree davy Test (DAST-10). Due on due Goal Mammogram. Due on due Goal Pap/HPV testing. Due on due Goal PAP. Due on due Goal FOBT. Due on due Goal Hepatitis C Screening due Goal Unhealthy drug use screening due Goal Vitamin B12. Due on due Goal Generalized Anxi ety Disorder - 7 (SONDRA-7). Due on due Goal CMP. Due on due Goal Pneumococcal vac cine. Due on due Goal Follow up Plan f or abnormal BMI (Less than 18.5, greater than 25). Due on due Goal Urinalysis due Goal Obtain blood Pre ssure. Due on due Goal ECG due Goal Depression scree davy. Due on due Goal Tobacco Use Scre ening. Due on due Goal Obtain Height, W eight, and BMI. Due on due Goal Influenza vaccine. Due on due Goal Lipid panel. Due on 028 due Goal Lifestyle education regardin g diet completed Goal Tobacco cessation counseling completed Goal GFR. Due on due Goal Foot exam. Due on 4 due Goal ASCVD 10 year risk. Due on due Goal Taking Statin Me dication. Due on due Goal Dental exam. Due on 023 due Goal Dilated eye exam. Due on Oct due Goal Hemoglobin A1C. Due on due Goal CBC. Due on due Goal HPV. Due on due Goal Urine microalbumin. Due on due Goal Vitamin D. Due [...] u se screening. Due on due Goal Influenza vaccine. Due on due Goal Depression scree davy. Due on due Goal PAP. Due on due Goal Urinalysis due Goal Hepatitis C Screening due Goal Obtain blood Pre ssure. Due on due Goal Lipid panel. Due on 028 due Goal ECG due Goal Tobacco Use Scre ening. Due on due Goal Drug Abuse Scree davy Test (DAST-10). Due on due Goal Mammogram. Due on due Goal FOBT. Due on due Goal Colonoscopy. Due on 023 due Goal Pneumococcal vac cine. Due on due Goal Pap/HPV testing. Due on due Goal HPV testing. Due on due Goal Lifestyle education regardin g diet completed Goal Tobacco cessation counseling completed Goal HPV. Due on due Goal CBC. Due on due Goal Hemoglobin A1C. Due on due Goal Hep B (). Due on due Goal ASCVD 10 year risk. Due on due Goal Foot exam. Due on due Goal Dilated eye exam. Due on Sep due Goal Taking Statin Me dication. Due on due Goal GFR. Due on due Goal Dental exam. Due on due Goal Urine microalbumin. Due on due Goal Mammogram. Due on [...] Vitamin D. Due on 4 due Goal Generalized Anxi ety Disorder - 7 (SONDRA-7). Due on due Goal Diabetes screening. Due on due Goal Vitamin B12. Due on due Goal Obtain Height, W eight, and BMI. Due on due Goal FOBT. Due on due Goal Pneumococcal vac cine. Due on due Goal Influenza vaccine. Due on due Goal ECG due Goal Urinalysis due Goal Lipid panel. Due on due Goal Obtain blood Pre ssure. Due on due Goal CMP. Due on due Goal HIV screen due Goal Hep B (1st). Due on due Goal Mammogram. Due on [...] Diabetes screening. Due on S due Goal Colonoscopy. Due on due Goal [...] A1C. Due on due Goal Hep B (). Due on due Goal Urine microalbumin. Due [...] Diabetes screening. Due on S due Goal Depression scree davy. Due on due Goal CMP. Due on due Goal Vitamin D. Due on due Goal Pneumococcal vac cine. Due on due Goal Unhealthy drug use screening due Goal Mammogram. Due on due Goal [...] Vitamin B12. Due on 024 due Goal Diabetes screening. Due on due Goal HIV screen due Goal Hemoglobin A1C. Due on due Goal Hep B (1st). Due on due Goal ASCVD 10 year risk. Due on due Goal Tobacco Use Scre [...] dication. Due on due Goal Hep B (1st). [...] Goal Foot exam. Due on due Goal Colonoscopy. Due on due Goal Hep B (1st). Due on due Goal Tobacco Use Scre ening. Due on due Goal ASCVD 10 year risk. Due on due Goal Generalized Anxi ety [...] Statin Me dication. Due on due Goal CBC. Due on [...] due Goal Hepatitis C Screening due Goal HPV. Due on due Goal [...] Foot exam. Due on 4 due Goal Obtain Height, W eight, and BMI. Due on due Goal Hep B (). Due on due Goal Dilated eye exam. Due on May due Goal Taking Statin Me dication. Due on due Goal GFR. Due on due Goal Urine microalbumin. Due on due Goal Dental exam. Due on due Goal Hepatitis C Screening due Goal Mammogram. Due on 3 due Goal Tobacco Use Cess ation Counseling. Due on due Goal HIV screen due Goal TSH. Due on due Goal Vitamin B12. Due on 024 due Goal Follow up Plan f or abnormal BMI (Less than 18.5, greater than 25). Due on due Goal Vitamin D. Due on due Goal CBC. Due on due Goal HPV testing. Due on 023 due Goal Tobacco Use Scre ening. Due on due Goal PAP. Due on due Goal Hemoglobin A1C. Due on due Goal Foot exam. Due on due Goal Dilated eye exam. Due on Apr due Goal Dental exam. Due on 023 due Goal GFR. Due on due Goal ASCVD 10 year risk. Due on M due Goal Taking Statin Me dication. Due on due Goal Hepatitis C Screening due Goal Tobacco Use Cess ation Counseling. Due on due Goal Hep B (1st). Due on 023 due Goal Diabetes screening. Due on F due Goal Colonoscopy. Due on due Goal HPV. Due on due Goal Pap/HPV testing. Due on due Goal CBC. Due on due Goal Urine microalbumin. Due on J due Goal Generalized Anxi ety Disorder - 7 (SONDRA-7). Due on due Goal FOBT. Due on due Goal HPV testing. Due on 023 due Goal Vitamin B12. Due on 024 due Goal PAP. Due on due Goal Tobacco Use Scre ening. Due on due Goal Mammogram. Due on 3 due Goal HIV screen due Goal Influenza vaccine. Due on due Goal Follow up Plan f or abnormal BMI (Less than 18.5, greater than 25). Due on due Goal Drug Abuse Scree davy Test (DAST-10). Due on due Goal Obtain blood Pre ssure. Due on due Goal CMP. Due on due Goal Unhealthy drug use screening due Goal Urinalysis. Due on 23 due Goal Pneumococcal vac cine. Due on due Goal Vitamin D. Due on 4 due Goal TSH. Due on due Goal ECG due Goal Lipid panel. Due on 028 due Goal Depression scree advy. Due on due Goal Obtain Height, W [...] Foot exam. Due on 3 due Goal Taking Statin Me dication. Due on due Goal Hemoglobin A1C. Due on due Goal Dilated eye exam. Due on Feb due Goal Urine microalbumin. Due on A due Goal Dental exam. Due on due Goal Hep B (1st). Due on due Goal ASCVD 10 year risk. Due on A due Goal GFR. Due on due Goal HPV testing. Due on due Goal Follow up Plan f or abnormal BMI (Less than 18.5, greater than 25). Due on due Goal Tobacco Use Cess ation Counseling. Due on due Goal HPV. Due on due Goal Drug Abuse Scree davy Test (DAST-10). Due on due Goal Obtain Height, W eight, and BMI. Due on due Goal Pap/HPV testing. Due on due Goal FOBT. Due on due Goal Hepatitis C Scre ening. Due on due Goal Pneumococcal vac cine. Due on due Goal CMP. Due on due Goal Lipid panel. Due on due Goal TSH. Due on due Goal Mammogram. Due on due Goal ECG. Due on due Goal CBC. Due on due Goal Influenza vaccine. Due on Ap due Goal Generalized Anxi ety Disorder - 7 (SONDRA-7). Due on due Goal Vitamin D. Due on due Goal Tobacco Use Scre ening. Due on due Goal Depression scree davy. Due on due Goal Urinalysis. Due on due Goal PAP. Due on due Goal HIV screen. Due on due Goal Colonoscopy. Due on due Goal Unhealthy drug use screening due Goal Obtain blood Pre ssure. Due on due Goal Vitamin B12. Due [...] due Goal Mammogram. Due on due Goal Unhealthy drug use [...] Vitamin D. Due on due Goal Obtain blood Pre ssure. Due on due Goal ECG. Due on due Goal HIV screen. Due on due Goal Urinalysis. Due on due Goal Hepatitis C Scre ening. Due on due Goal Drug Abuse Scree davy Test (DAST-10). Due on due Goal HPV testing. Due on 023 due Goal HPV testing. Due on 023 due Goal FOBT. Due on due Goal CBC. Due on due Goal Drug Abuse Scree davy Test (DAST-10). Due on due Goal Hepatitis C Scre ening. Due on due Goal Vitamin D. Due on due Goal HPV. Due on due Goal Tobacco Use Cess ation Counseling. Due on due Goal Obtain Height, W eight, and BMI. Due on due Goal Colonoscopy. Due on due Goal Mammogram. Due on [...] due Goal ECG. Due on due Goal Lipid panel. Due on due Goal CMP. Due on due Goal Urinalysis. Due on [...] Goal HIV screen. Due on due Goal Urinalysis. Due on due Goal Dietary manageme nt [...] Appointment date/timeframe: 04/06/2024 ordered Referral Referred To: [facility] Ordered: Referrals: Physical Medicine and Rehabilitation. [facility]. Location: [facility] Evaluate and treat Appointment date/timeframe: 02/09/2024 ordered Referral Ordered: MRI LUMBAR SPINE W/O DYE Bilateral spine, lumbar Appointment date/timeframe: 12/19/2023 ordered Referral Ordered: X-RAY EXAM OF LOWER SPINE Right spine, lumbar Appointment date/timeframe: 1 Day ordered Referral Referred To: [facility] Ordered: Referrals: Neurology. [facility]. Location: [place]. Evaluate and treat Appointment date/timeframe: 10/11/2023 ordered Referral Referred To: Uro-gynecology Ordered: Referrals: Urology. Uro-gynecology. Location: [place]. Evaluate and treat Appointment date/timeframe: 08/31/2023 ordered Referral Ordered: Vitamin b12 injectionStrength 1000, Dose 1000 mcg Intramuscular Left deltoid ordered Referral Referred To: [facility] Ordered: Referrals: Radiotherapy. [facility]. Location: [place]. Diagnostic testing Appointment date/timeframe: 1 Week ordered Referral Referred To: [facility] Ordered: Referrals: Orthopedic Surgery. [facility]. Location: [facility]. Evaluate and treat Appointment date/timeframe: 01/21/2023 ordered Referral Ordered: X-RAY EXAM OF KNEES Bilateral ordered Referral Referred To: [facility] [address] [place], [address] [phone] Ordered: Referrals: Podiatry. [facility]. Location: [place], [place]. Evaluate and treat Appointment date/timeframe: 02/04/2023 ordered Referral Referred To: Glenis Lara MSN [address], [place], [phone] Ordered: Referrals: Psychiatry. [facility] PONCE. Evaluate and treat Appointment date/timeframe: 2 Weeks ordered Referral Referred To: [facility] Ordered: Referrals: Gastroenterology. [facility]. Evaluate and treat Appointment date/timeframe: 03/31/2023 ordered Future Order: Lab Order CBC (INC LUDES DIFF/PLT) ([id number]), Scheduled for: Ordered Future Order: Lab Order COMPREHE NSIVE METABOLIC PANEL ([id number]), Scheduled for: Ordered Future Order: Lab Order HEMOGLOB IN A1C ([id number]), Scheduled for: Ordered Future Order: Lab Order LIPID PA LEWIS ([id number]), Scheduled for: Ordered Future Order: Lab Order TSH W/RE FLEX TO FREE T4 ([id number]), Scheduled for: Ordered Future Order: Lab Order VITAMIN B12 ([id number]), Scheduled for: Ordered History Of Present Illness Encounter Date Complaint History Of Prese nt Illness ED/hospital f/u Cristina is here [...] w/ wound care today at 1 at [facility].She does appear pale today, but is up [...] made aware. Pt is already est with [facility]. -AMIRA FOOTE complex f/u Nedia is here to day for fasting labs and complex follow upDepression- worse- sees MCCCRefills of Cymbalta sent- [facility] 07 of AprilABD PAinRLQ, buldge that [...] but is unable to see her r/t [facility] policy she will have to be a [...] fighting. She was able to see the employment case manager Evon High for [facility] today and together decided that Cristina would go to [facility] for emergent help. She was transported by the [employer] from here to there. Medication refills for [...] Cholesterol 128, LDL 72, HDL 27, Trig 193She had a Neuro appt on 02/14/24 - Dr. Sullivan for f/u on period atypical spells of memory loss. She has been referred to [facility] for further evaluation. March 8thShcandida does have sleep apneashe is to f/u w/ Dr. Sullivan in 3 monthsCardiology month f/edenilson changes in medicationsEKG- Stableradha is to RTC 6 monthsGastro 02/28/24 f/u apptwill repeat celiac testing in candida is to f/u in March with them againConstipation/belching/celiacMedica tion change: stop colace- stat Linzess 72 mcg Fasting Labs Nedia is here to day for fasting labs. Successfully collected 4 tubes, pt tolerated well. Pt scheduled to rtc in 1 week to follow up on lab results. B12 injection Nedia is here th is morning to receive [...] like rotten eggs.She has GI established at [facility]. She has appt on 03/19/24. B12 INJECTION [...] 58WBC 17- denies illness today- some sinus bhiumzclrqT2o 5.4CBC okTSH okB12 595B12 injection todayContinues w/ lower back pain now ongoing for 2 monthsSHe had xray of LUmbar spine 10/18/23: no acute processno fractures, no malalighnment. Mild anterior osteophyte formation @ L2-L3 and L3-M4gwawen hx of degenerative disc diseasePain continues- unchanged despite conservative care.xrays reviewed at last visit- MRI ordered, but needs PA- waiting on Peer to peer reviewstarting a water aerobics class soonRTC 1 month next b12RTC 3 months fasting labs FASTING LABS NEDIA IS HERE TH IS MORNING FOR FASTING [...] Mild anterior osteophyte formation @ L2-L3 and L3-X7otzote hx of degenerative disc diseasePain continues- unchangeddeclines pain management- states she is treating herself by smoking marijuana-declines to stopon Cymbalta for depression- could consider increasing to 60 mg- will allow Glenis, PMHNP to manage- pt awareShcandida is due for fasting labs-scheduled to return in 2 weeksShe is due for monthly b12 -given todayreports sunshine ears itching as well.sunshine ear pain- infectednasal and congestion other Nedia states noé t she has family hx -mother and 2 uncles have degenerative disc diseaseCristina is obese- working on weight loss through [...] or the eventStates this did happen before [id number] Went to Neuurology when she was 19- was evaluated in [place]-for something similar. Was dx with adolescent seizures [...] is in counseling will see Glenis tomorrow- [facility]-immigration lawyer for possible medication management.She would like to go to Neurology for evaluation to see if there is a neurological component to this blacking out. States that she does sometimes does find herself staring offShe does have some numbness and tingling in both arms- more right than leftShe is going to have a carpal tunnel sx on 08.08.23 - at [place] Dr. Sorto.Denies cp, dizziness, no faintingCurrently no new medicationsDoes smoke marijuana- no other recreational drugs, or substances, no makiebe3ds weight loss- continues ozempicdoing well nocturia The [...] Post hysterectomy. UA + Nit, Blood. INJECTION IRINADISal IS HERE TH IS MORNING TO RECEIVE HER MONTHLY B12 INJECTION. ADMINISTERED INTO RIGHT DELTOID. PT TOLERATED WELL, BANDAID APPLIED. PT TO RTC IN 1 MONTH FOR NEXT MONTHLY B12 INJECTION. Follow up from Hospitalization Carlos brooks is here today after being admitted to [facility] in [place], [place] on 06.08.23 for dehydration. Pt was transferred from [place] to [facility] and discharged on 06.09.23. She states that her Lexapro was recently increased from 10 mg to 20 mg and for that reason, while in the sun got dehydrated, she reports she dropped her dose back down to 10 mg until she can see the prescriber again (Glenis Molina, [place], [facility]). Today she states she is feeling [...] has hemorrhoids, and would like treatment. Injection Irinadia is here th is morning to receive her monthly B12 injection. Administered into right deltoid. Pt tolerated well. Bandaid applied. FOLLOW UP ON LABS Marcie is here today to follow up on recent lab results. 04.13.23 Pt stated she has been diagnosed with Celiac Disease via [facility], gastroenterology and is starting a Gluten Free [...] is morbidly obeseAsthma- Pt was seen in [facility] on 04.16.23 for URI- she states [...] exam completed here today as well as podiatry-02/04/23Shcandida does not check BS dailyAll nails on [...] calicum score CT confirmed.Form faxed to ortho office.[facility] is improving- home wound care released [...] the referral to Plastics at for Hidradentitis [id number] today- to complete 6 week series, now will do monthlyShe has also requested for me to complete her DM foot form from [facility] for DM shoes. She had DM foot exam at [facility] as well as trimming of nails. Records reviewed, diabetic footwear form is to show she has a DM management.Forms will be completed and faxed to [facility].She was found to have [...] will be starting sessions with Mary at [facility] on Tuesday, and may then be referred [...] of her feet/nails.She would like to go [place] as Sylvester reports she has had some fungal infections in past, [facility]- A1c 5.9, on metformin 500 mg bidToday she has some wheezing, o2 94% on room airShe is followed by pulmonologyon 2.17.23 her wbc was elevatedShe reports cough and [...] in her abdomen that was infected- [facility]- Dr. Leobardo Oh. Other hx includes surgeries, [...] 8, coffee, java monster drinksWants [facility] 29ap May 11, 2022- [...] stop smoking/vaping, there is a free online [place] from smoking course offered through our local health department. You may call [phone] for more information. Related to Nicotine dependence, [...] D levels Related to Vitamin D deficiency It is recommended to stop smoking/vaping to increase overall health and decrease risk of cardiovascular disease. If you wish to stop smoking/vaping, there is a free online [place] from smoking course offered through our local health department. You may call [phone] for more information. Related to Nicotine dependence, cigarettes, uncomplicated Dietary Instructions for a healthy weight: BMI should be between the range of 18.5-24.9 for an adult; and Caloric intake should be around 5186-1353 for a female, and 4051-2779 for an adult male. Fiber intake should [...] are recommend to be 13-30 grams each. [employer]Right[employer]gov is a good source for meal planning and dietary education. You may also refer to the [place] [employer] website for further low sodium, health heart diet information. [place]iter[place]ian diet would be a suitable diet for your current health conditions. Related to Obesity B-12 injection given in office today. Eat [...] an understanding of all. Related to UTI May-27-2025 Patient educated on the importance of maintaining [...] adult; and Caloric intake should be around 9263-8422 for a female, and 4653-4298 for an adult male. Fiber intake should [...] education. You may also refer to the [place] [employer] website for further low sodium, health heart diet information. [place] diet would be a suitable diet for your current health conditions.- Celiac diet r/t you dx of celiac disease Related to Obesity It is recommended to stop smoking/vaping to increase overall health and decrease risk of cardiovascular disease. If you wish to stop smoking/vaping, there is a free online [place] from smoking course offered through our local health department. You may call [phone] for more information. Related to Nicotine dependence, [...] stop smoking/vaping, there is a free online [place] from smoking course offered through our local health department. You may call [phone] for more information. Related to Nicotine dependence, [...] to improve depression symptomsPt was sent to [facility] after speaking with [facility] employment case manager Evon High. Related to Depression High fiber [...] stop smoking/vaping, there is a free online [place] from smoking course offered through our local health department. You may call [phone] for more information. Related to Nicotine dependence, [...] stop smoking/vaping, there is a free online [place] from smoking course offered through our local health department. You may call [phone] for more information.Use nicotine patches as instructed.RTC [...] if indicated. Related to Vitamin B12 deficiency Gentle stretching re commendedIce applicationMRI ordered Related to Sciatica, right side It is recommended to stop smoking/vaping to increase overall health and decrease risk of cardiovascular disease. If you wish to stop smoking/vaping, there is a free online [place] from smoking course offered through our local health department. You may call [phone] for more information. Related to Nicotine dependence, cigarettes, uncomplicated Patient instructed o n appropriate use of medications prescribed for back pain. Discussed conservative measures such as heat, ice, gentle strength stretching, and core muscle strengthening. Avoid heavy lifting, pulling, or tugging. Contact the clinic if any worsening or new symptoms related to back pain occur. Related to Low back pain Take all antibiotics until complete. May take [...] stop smoking/vaping, there is a free online [place] from smoking course offered through our local health department. You may call [phone] for more information. Related to Nicotine dependence, [...] stop smoking/vaping, there is a free online [place] from smoking course offered through our local health department. You may call [phone] for more information.Use nicotine patches as instructed.RTC [...] adult; and Caloric intake should be around 5415-8647 for a female, and 3386-7560 for an adult male. Fiber intake should [...] education. You may also refer to the [place] [employer] website for further low sodium, [...] stop smoking/vaping, there is a free online [place] from smoking course offered through our local health department. You may call [phone] for more information.Use nicotine patches as instructed.RTC [...] has been faxed to Orthopedic office in [place], and form scanned to chart. Related to [...] with clinic. Related to Essential (primary) hypertension It is recommended to stop smoking to increase overall health and decrease risk of cardiovascular disease. If you wish to stop smoking, there is a free online [place] from smoking course offered through our local health department. You may call [phone] for more information. Related to Nicotine dependence, [...] understanding. Weight loss recommended. Related to Obesity Patient educated on the [...] Type 2 diabetes mellitus w/ diabetic neuropathy Continue wound care as instructedContinue all antibiotics until completeKeep follow up appt w/ Dr. Randy Related to Cutaneous abscess Dietary Instructions for a healthy weight: BMI should be between the range of 18.5-24.9 for an adult; and Caloric intake should be around 0192-4742 for a female, and 3255-7540 for an adult male. Fiber intake should [...] are recommend to be 13-30 grams each. [employer] is a good source for meal planning and dietary education. You may also refer to the [place] [employer] website for further low sodium, [...] index [BMI] 50.0-59.9, adult Patient instructed o f the importance of [...] than 90. Related to Essential (primary) hypertension B-12 injection [...] stop smoking, there is a free online [place] from smoking course offered through our local health department. You may call [phone] for more information. I have given you [...] adult; and Caloric intake should be around 4345-7325 for a female, and 1230-3095 for an adult male. Fiber intake should [...] are recommend to be 13-30 grams each. [employer]RightNow[employer]gov is a good source for meal planning and dietary education. You may also refer to the [place] [employer] website for further low sodium, [...] stop smoking, there is a free online [place] from smoking course offered through our local health department. You may call [phone] for more information. Related to Nicotine dependence, [...]
--- OUTSIDE RECORDS SUMMARY | 2025-08-12 11:00 | XMS_ITS | Encounter Summary ---
Author Organization [employer] ([place], [place], [place], [place]) Address [address] [place] [address] Care Team Providers Care Cushion Builder Name Role Phone Yenny Dhillon APRN Primary Care Provider [phone] Reason for Visit * Reason Comments Wound Care Encounter Details Date Type Department Care Team (Late st Contact Info) Description 08/12/2025 11:00 AM EDT Office Visit [facility] [address] [place] [address] Sukhdev Bazan Jr., MD [address] [place] [phone] Non-pressure chronic ulcer of skin of [...] Date Franko rded Speak language other than [place] Islander at home Not on file 12/23/2023 Want help with school or training Not on file 12/23/2023 Substance Use Answer Date Recorded Used prescription meds for non-medical reasons N ot on file 12/23/2023 Used illegal drugs past 12 months Not on file 12/23/2023 Comments Unknown Sex and Gender Information Value Date Recorded Sex Assigned at Not on file 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 Call Wound center during business hours: [phone] or after hours, go to the ER [...] necrotizing fasciitis and [facility] [...] was discharged with a wound VAC to [facility] and recently got out of [facility]. She had a ER visit with [...] the correct patient, procedure, equipment, support services rep, and site/side marked as required. 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) Localized tissue (HCC) Other specified local infections of the skin and subcutaneous tissue [place] DEBRIDEMENT SUBCUTANEOUS TISSUE EA ADDL 20 SQ CM Routine 08/12/2025 11:00 AM EDT 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) Localized tissue (HCC) Other specified local infections of the skin and subcutaneous tissue [place] DEBRIDEMENT SUBCUTANEOUS TISSUE EA ADDL 20 SQ CM Routine 08/12/2025 11:00 AM EDT 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) Localized tissue (HCC) Other specified local infections of the skin and subcutaneous tissue [place] DEBRIDEMENT SUBCUTANEOUS TISSUE EA ADDL 20 SQ CM Routine 08/12/2025 11:00 AM EDT 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) Localized tissue (HCC) Other specified local infections of the skin and subcutaneous tissue [place] DEBRIDEMENT SUBCUTANEOUS TISSUE EA ADDL 20 SQ CM Routine 08/12/2025 11:00 AM EDT 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) Localized tissue (HCC) Other specified local infections of the skin and subcutaneous tissue [place] DEBRIDEMENT SUBCUTANEOUS TISSUE EA ADDL 20 SQ CM Routine 08/12/2025 11:00 AM EDT 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) Localized tissue (HCC) Other specified local infections of the skin and subcutaneous tissue [place] DEBRIDEMENT SUBCUTANEOUS TISSUE EA ADDL 20 SQ CM Routine 08/12/2025 11:00 AM EDT 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) Localized tissue (HCC) Other specified local infections of the skin and subcutaneous tissue [place] DEBRIDEMENT SUBCUTANEOUS TISSUE EA ADDL 20 SQ CM Routine 08/12/2025 11:00 AM EDT 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) Localized tissue (HCC) Other specified local infections of the skin and subcutaneous tissue [place] DEBRIDEMENT SUBCUTANEOUS TISSUE EA ADDL 20 SQ CM Routine 08/12/2025 11:00 AM EDT 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) Localized tissue (HCC) Other specified local infections of the skin and subcutaneous tissue [place] DEBRIDEMENT SUBCUTANEOUS TISSUE EA ADDL 20 SQ CM Routine 08/12/2025 11:00 AM EDT 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) Localized tissue (HCC) Other specified local infections of the skin and subcutaneous tissue [place] DEBRIDEMENT SUBCUTANEOUS TISSUE EA ADDL 20 SQ CM Routine 08/12/2025 11:00 AM EDT 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) Localized tissue (HCC) Other specified local infections of the skin and subcutaneous tissue [place] DEBRIDEMENT SUBCUTANEOUS TISSUE 1ST 20 SQ CM/< Routine 08/12/2025 11:00 AM EDT 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) Localized tissue (HCC) Other specified local infections of the skin and subcutaneous tissue documented in this encounter Results * [place] DEBRIDEMENT SUBCUTANEOUS TISSUE 1ST 20 SQ CM/<, [place] DEBRIDEMENT SUBCUTANEOUS TISSUE EA ADDL 20SQ CM, [place] DEBRIDEMENT SUBCUTANEOUS TISSUE EA ADDL 20 SQ CM, [place] DEBRIDEMENT SUBCUTANEOUS TISSUE EA ADDL 20 SQ CM, [place] DEBRIDEMENT SUBCUTANEOUS TISSUE EA ADDL 20 SQ CM, [place] DEBRIDEMENT SUBCUTANEOUS TISSUE EA ADDL 20 SQ CM, [place] DEBRIDEMENT SUBCUTANEOUS TISSUE EA ADDL 20 SQ CM, [place] DEBRIDEMENT SUBCUTANEOUSTISSUE EA ADDL 20 SQ CM, [place] DEBRIDEMENT SUBCUTANEOUS TISSUE EA ADDL 20 SQ CM, [place] DEBRIDEMENT SUBCUTANEOUS TISSUE EA ADDL 20 SQ CM, [place] DEBRIDEMENT SUBCUTANEOUS TISSUE EA ADDL 20 SQ CM, [place] DEBRIDEMENT S UBCUTANEOUS TISSUE EA ADDL 20 SQ CM (08/12/2025 11:00 AM EDT) Narrative Sukhdev Bazan Jr., MD - 08/12/2025 11:00 AM EDT [...] the correct patient, procedure, equipment, support services rep, and site/side marked as required. Debridement Details [...] uncontrolled documented in this encounter Care Teams Cushion Builder Relationship Specialty Start Date End Date Yenny Dhillon APRN [address] [phone] PCP - General Nurse Practitioner 03/13/24 documented as of this encounter
--- OUTSIDE RECORDS SUMMARY | 2025-08-14 15:00 | XMS_ITS | Encounter Summary ---
Author Organization [employer] ([place], [place], [place], [place]) Address [address] [place] [address] Care Team Providers Care Firer Low Pressure Name Role Phone Dhillon, Yenny GLORIA Primary Care Provider [phone] Reason for Visit * Reason Comments Wound Care Nurse visit for woun d care, wound vac change and dressing change Encounter Details Date Type Department Care Team (Latest Contact Info) Description 08/14/2025 3:00 PM EDT Clinical Support [facility] 1 [place] [address] Sukhdev Chadwick Jr., MD [address] [place] [phone] Localized tissue (HCC) (Primary Dx); Non-pressure [...] Date Franko rded Speak language other than Latvian at home Not on file 12/23/2023 Want help with school or training Not on file 12/23/2023 Substance Use Answer Date Recorded Used prescription meds for non-medical reasons N ot on file 12/23/2023 Used illegal drugs past 12 months Not on file 12/23/2023 Comments Unknown Sex and Gender Information Value Date Recorded Sex Assigned at Not on file 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 Wound was cleansed with Vashe and wound [...] necrotizing fasciitis and was discharged from the [facility] on July 19, 2025 in regards [...] was discharged with a wound VAC to [facility] and recently got out of [facility]. She had a ER visit with a [...] Description 08/21/2025 3:30 PM EDT Clinical Support [facility] 1 [place] [address] 08/23/2025 3:30 PM EDT Clinical Support [facility] 1 [place] [address] documented as of this encounter Procedures Procedure Name Priority Date/Time Associated Diagnosis Comments WOUND CULTURE + GRAM STAIN Routine 08/14/2025 4:51 PM EDT Other specified local infections of the skin and subcutaneous tissue documented in this encounter Results * (ABNORMAL) Wound Culture + Gram Stain (08/14/2025 4:51 PM EDT) Result Light Growth Streptococcus agalactiae(A) 08/17/2025 2:03 PM EDT [facility] Result Light Growth Corynebacterium species(A) 08/17/2025 2:03 PM EDT [facility] Result Light Growth Corynebacterium species(A) 08/17/2025 2:03 PM EDT [facility] Comment:Second [place] Type Gram Stain Result No organisms seen 08/17/2025 2:03 PM EDT [facility] Gram Stain Result Few WBCs 08/17/2025 2:03 PM EDT [facility] Wound INGUINAL REGION STRUCTURE / Unknown 08/14/2025 4:51 PM EDT 08/14/2025 5:42 PM EDT Narrative [facility] - 08/17/2025 2:03 PM EDT Mixed growth suggestive of colonization or indigenous silvestre Sukhdev Chadwick Jr., MD MICROBIOLOGY - GENERAL OR DERABLES Final Result Performing Organization Address City/State/[facility] Co de Phone Number [facility] [address] [phone] documented in this encounter Visit Diagnoses Diagnosis [...] canis documented in this encounter Care Teams Firer Low Pressure Relationship Specialty Start Date End Date Yenny Dhillon APRN [address] [place] [address] PCP - General Nurse Practitioner 03/13/24 documented as of this encounter
--- OUTSIDE RECORDS SUMMARY | 2025-08-16 13:30 | XMS_ITS | Encounter Summary ---
Author Organization [employer] ([place], [place], [place], [place]) Address [address] [place] [address] Care Team Providers Care Gate Tender Name Role Phone Yenny Dhillon APRN Primary Care Provider [phone] Reason for Visit * Reason Comments Wound Care Encounter Details Date Type Department Care Team (Late st Contact Info) Description 08/16/2025 1:30 PM EDT Clinical Support [facility] 1 [place] [address] Sukhdev Bazan Jr., MD [address] [place] [phone] Non-pressure chronic ulcer of skin of [...] Date Franko rded Speak language other than Irish at home Not on file 12/23/2023 Want help with school or training Not on file 12/23/2023 Substance Use Answer Date Recorded Used prescription meds for non-medical reasons N ot on file 12/23/2023 Used illegal drugs past 12 months Not on file 12/23/2023 Comments Unknown Sex and Gender Information Value Date Recorded Sex Assigned at Not on file 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 Gender Identity Not on file Sexual [...] Description 08/21/2025 3:30 PM EDT Clinical Support [facility] 1 [place] [address] 08/23/2025 3:30 PM EDT Clinical Support [facility] 1 [place] [address] documented as of this encounter Visit Diagnoses Diagnosis 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
--- OUTSIDE RECORDS SUMMARY | 2025-08-19 15:40 | XMS_ITS | Encounter Summary ---
Author Organization [employer] ([place], [place], [place], [place]) Address [address] [place] [address] Care Team Providers Care Licensed Insurance Sales Agent Name Role Phone Yenny Dhillon APRN Primary Care Provider [phone] Reason for Visit * Reason Comments Wound Care Encounter Details Date Type Department Care Team (Late st Contact Info) Description 08/19/2025 3:40 PM EDT Office Visit [facility] [address] [place] [address] Sukhdev Bazan Jr., MD [address] [place] [phone] Non-pressure chronic ulcer of skin of [...] Date Franko rded Speak language other than Cambodian at home Not on file 12/23/2023 Want help with school or training Not on file 12/23/2023 Substance Use Answer Date Recorded Used prescription meds for non-medical reasons N ot on file 12/23/2023 Used illegal drugs past 12 months Not on file 12/23/2023 Comments Unknown Sex and Gender Information Value Date Recorded Sex Assigned at Not on file 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 for an appointment. documented in this encounter [...] paint the wound with Betadine prior to. 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 She has completed her [...] necrotizing fasciitis and was discharged from the [facility] on July 19, 2025 in regards [...] was discharged with a wound VAC to [facility] and recently got out of [facility]. She had a ER visit [...] just associated with irritation from sutures. A thoroughand time-consuming debridement was medically necessary due to [...] provider verified the correct patient, procedure, equipment, arch support technician, and site/side marked as required. 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) Localized tissue (HCC) Other specified local infections of the skin and subcutaneous tissue MI DEBRIDEMENT SUBCUTANEOUS TISSUE EA ADDL 20 SQ CM Routine 08/19/2025 3:40 PM EDT 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) Localized tissue (HCC) Other specified local infections of the skin and subcutaneous tissue MI DEBRIDEMENT SUBCUTANEOUS TISSUE EA ADDL 20 SQ CM Routine 08/19/2025 3:40 PM EDT 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) Localized tissue (HCC) Other specified local infections of the skin and subcutaneous tissue MI DEBRIDEMENT SUBCUTANEOUS TISSUE EA ADDL 20 SQ CM Routine 08/19/2025 3:40 PM EDT 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) Localized tissue (HCC) Other specified local infections of the skin and subcutaneous tissue MI DEBRIDEMENT SUBCUTANEOUS TISSUE EA ADDL 20 SQ CM Routine 08/19/2025 3:40 PM EDT 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) Localized tissue (HCC) Other specified local infections of the skin and subcutaneous tissue MI DEBRIDEMENT SUBCUTANEOUS TISSUE EA ADDL 20 SQ CM Routine 08/19/2025 3:40 PM EDT 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) Localized tissue (HCC) Other specified local infections of the skin and subcutaneous tissue MI DEBRIDEMENT SUBCUTANEOUS TISSUE EA ADDL 20 SQ CM Routine 08/19/2025 3:40 PM EDT 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) Localized tissue (HCC) Other specified local infections of the skin and subcutaneous tissue MI DEBRIDEMENT SUBCUTANEOUS TISSUE EA ADDL 20 SQ CM Routine 08/19/2025 3:40 PM EDT 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) Localized tissue (HCC) Other specified local infections of the skin and subcutaneous tissue MI DEBRIDEMENT SUBCUTANEOUS TISSUE EA ADDL 20 SQ CM Routine 08/19/2025 3:40 PM EDT 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) Localized tissue (HCC) Other specified local infections of the skin and subcutaneous tissue MI DEBRIDEMENT SUBCUTANEOUS TISSUE 1ST 20 SQ CM/< Routine 08/19/2025 3:40 PM EDT 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) Localized tissue (HCC) Other specified local infections of the skin and subcutaneous tissue documented in this encounter Results * MI DEBRIDEMENT SUBCUTANEOUS TISSUE 1ST 20 SQ CM/<, MI DEBRIDEMENT SUBCUTANEOUS TISSUE EA ADDL 20SQ CM, MI DEBRIDEMENT SUBCUTANEOUS TISSUE EA ADDL 20 SQ CM, MI DEBRIDEMENT SUBCUTANEOUS TISSUE EA ADDL 20 SQ CM, MI DEBRIDEMENT SUBCUTANEOUS TISSUE EA ADDL 20 SQ CM, MI DEBRIDEMENT SUBCUTANEOUS TISSUE EA ADDL 20 SQ CM, MI DEBRIDEMENT SUBCUTANEOUS TISSUE EA ADDL 20 SQ CM, MI DEBRIDEMENT SUBCUTANEOUSTISSUE EA ADDL 20 SQ CM, MI DEBRIDEMENT SUBCUTANEOUS TISSUE EA ADDL 20 SQ CM, MI DEBRIDEMENT SUBCUTANEOUS TISSUE EA ADDL 20 SQ [...] provider verified the correct patient, procedure, equipment, arch support technician, and site/side marked as required. Debridement Details [...] canis documented in this encounter Care Teams Licensed Insurance Sales Agent Relationship Specialty Start Date End Date Yenny Dhillon, HURL SHAKER [address], [place] [phone] PCP - General Nurse Practitioner 03/13/24 documented as of this encounter
--- OUTSIDE RECORDS SUMMARY | 2025-08-20 10:30 | XMS_ITS | Encounter Summary ---
Author Organization Healthcare Address [address] [place] [address] Care Team Providers Care Envelope Folder Name Role Phone Yenny Dhillon APRN Primary Care Provider [phone] Reason for Visit * Reason Comments Post-op Encounter Details Date Type Department Care Team ([facility] st Contact Info) Description 08/20/2025 10:30 AM EDT Office Visit [place] [facility] [address], [address]st [place] [address] Lilliana Morfin APRN [address] [place] [address] Hidradenitis suppurativa (Primary Dx); Soft [...] were you homeless or living in a custodial (including now)? No 07/15/2025 [facility] Utilities Answer Date Recorded In the [...] encounter Miscellaneous Notes * Progress Notes - Lilliana Morfin APRN - 08/20/2025 10:30 AM EDT [...] tissue infection Most recent pictures uploaded to [employer] [facility] show a nicely healing wound with granulating [...] Office Building Urology [address] [facility] [facility], [address] [place] [address] Marj Matamoros APRN [address] [place] [address] documented as of this encounter [...] documented as of this encounter Care Teams Envelope Folder Relationship Specialty Start Date End Date Yenny Dhillon APRN [address] [place] [address] PCP - General 07/22/23 documented as of this encounter
[2025-08-20 20:54] VITALS: BP 132/112; PULSE 118; RESP 18; TEMP 36.8; O2SAT 98; BMI 50.1
--- OUTSIDE RECORDS SUMMARY | 2025-08-20 21:18 | XMS_ITS | Encounter Summary ---
Author Organization [employer] ([place], [place], [place], [place]) Address [address] [place] [address] Care Team Providers Care Halver Machine Operator Name Role Phone Alejo Yenny GLORIA Primary Care Provider [phone] Encounter Details Date Type Department Care Team (Latest Contact Info) Description 08/12/2025 Travel Social History Tobacco Use Types Packs/Day [...] Date Franko rded Speak language other than Malaysian at home Not on file 12/23/2023 Want help with school or training Not on file 12/23/2023 Substance Use Answer Date Recorded Used prescription meds for non-medical reasons N ot on file 12/23/2023 Used illegal drugs past 12 months Not on file 12/23/2023 Comments Unknown Sex and Gender Information Value Date Recorded Sex Assigned at Not on file 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 Gender Identity Not on file Sexual Orientation Not on file documented as of this encounter Plan of Treatment Upcoming Encounters Date Type Department Care Team (Late st Contact Info) Description 08/21/2025 3:30 PM EDT Clinical Support [facility] [address] [place] [address] 08/23/2025 3:30 PM EDT Clinical Support [facility] [address] [place] [address] documented as of this encounter Visit Diagnoses Not on filedocumented in this encounter Care Teams Halver Machine Operator Relationship Specialty Start Date End Date Yenny Dhillon APRN [address] [place] [address] PCP - General Nurse Practitioner 03/13/24 documented as of this encounter
--- OUTSIDE RECORDS SUMMARY | 2025-08-20 21:18 | XMS_ITS | Encounter Summary ---
Author Organization [employer] ([place], [place], [place], [place]) Address [address] [place] [address] Care Team Providers Care Press Tender Long Goods Name Role Phone Yenny Dhillon APRN Primary Care Provider [phone] Reason for Visit * Reason Onset Date Comments Appointment 08/16/2025 Encounter Details Date Type Department Care Team (Late st Contact Info) Description 08/16/[address] [facility] [address] [place] [address] Sukhdev Bazan Jr., MD [address] [place] [address] Appointment Social History Tobacco Use Types Packs/Day Years [...] Date Franko rded Speak language other than Azerbaijani at home Not on file 12/23/2023 Want help with school or training Not on file 12/23/2023 Substance Use Answer Date Recorded Used prescription meds for non-medical reasons N ot on file 12/23/2023 Used illegal drugs past 12 months Not on file 12/23/2023 Comments Unknown Sex and Gender Information Value Date Recorded Sex Assigned at Not on file 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 CUPOLA REPAIRER Gender Identity Not on file Sexual Orientation Not on file documented as of this encounter Miscellaneous Notes * Telephone Encounter - Adriane S Maria C - 08/16/2025 1:39 PM EDT Patient was late for their 1:30 PM appt. I called to check in on them and received no answer/voice mail was full and so I could leave no messages. Waited 10 minutes and attempted to reach the patientagain, with the same results as previously. Attempted to reach out to their alternate contact and that number is no longer in service. documented in this encounter Plan of Treatment Upcoming Encounters Date Type Department Care Team (Late st Contact Info) Description 08/21/2025 3:30 PM EDT Clinical Support [facility] [place] [address] [place] [address] 08/23/2025 3:30 PM EDT Clinical Support [facility] Wound [facility] [address] [place] [address] documented as of this encounter Visit Diagnoses Not on filedocumented in this encounter Care Teams Press Tender Long Goods Relationship Specialty Start Date End Date Yenny Dhillon, GLORIA [address] [place] [address] PCP - General Nurse Practitioner 03/13/24 documented as of this encounter
--- OUTSIDE RECORDS SUMMARY | 2025-08-20 21:18 | XMS_ITS | Encounter Summary ---
Author Organization [employer] ([place], [place], [place], [place]) Address [address] [place] [address] Care Team Providers Care Buncher Hand Name Role Phone Alejo Yenny GLORIA Primary Care Provider [phone] Encounter Details Date Type Department Care Team (Latest Contact Info) Description 08/16/2025 Travel Social History Tobacco Use Types Packs/Day [...] Date Franko rded Speak language other than Bahamian at home Not on file 12/23/2023 Want help with school or training Not on file 12/23/2023 Substance Use Answer Date Recorded Used prescription meds for non-medical reasons N ot on file 12/23/2023 Used illegal drugs past 12 months Not on file 12/23/2023 Comments Unknown Sex and Gender Information Value Date Recorded Sex Assigned at Not on file 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 [address] [place] [address] 08/23/2025 3:30 PM EDT Clinical Support [facility] [address] [place] [address] documented as of this encounter Visit Diagnoses Not on filedocumented in this encounter Care Teams Buncher Hand Relationship Specialty Start Date End Date Yenny Dhillon APRN [address] [place] [address] PCP - General Nurse Practitioner 03/13/24 documented as of this encounter
--- OUTSIDE RECORDS SUMMARY | 2025-08-20 21:18 | XMS_ITS | Encounter Summary ---
Author Organization [employer] ([place], [place], [place], [place]) Address [address] [place] [address] Care Team Providers Care Supervisor Securities Vault Name Role Phone Alejo Yenny GLORIA Primary Care Provider [phone] Encounter Details Date Type Department Care Team (Latest Contact Info) Description 08/19/2025 Travel Social History Tobacco Use Types Packs/Day [...] Date Franko rded Speak language other than Cypriot at home Not on file 12/23/2023 Want help with school or training Not on file 12/23/2023 Substance Use Answer Date Recorded Used prescription meds for non-medical reasons N ot on file 12/23/2023 Used illegal drugs past 12 months Not on file 12/23/2023 Comments Unknown Sex and Gender Information Value Date Recorded Sex Assigned at Not on file 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 IN[employer]UTION Gender Identity Not on file Sexual Orientation Not on file documented as of this encounter Plan of Treatment Upcoming Encounters Date Type Department Care Team (Late st Contact Info) Description 08/21/2025 3:30 PM EDT Clinical Support [facility] [address] [place] [address] 08/23/2025 3:30 PM EDT Clinical Support [facility] [address] [place] [address] documented as of this encounter Visit Diagnoses Not on filedocumented in this encounter Care Teams Supervisor Securities Vault Relationship Specialty Start Date End Date Yenny Dhillon APRN [address] [place] [address] PCP - General Nurse Practitioner 03/13/24 documented as of this encounter
--- OUTSIDE RECORDS SUMMARY | 2025-08-20 21:19 | XMS_ITS | Encounter Summary ---
Author Organization Healthcare Address [address] [place] [address] Care Team Providers Care Barrel Waterer Name Role Phone Yenny Dhillon APRN Primary Care Provider [phone] Encounter Details Date Type Department Care Team [...] in the past 12 m [facility], were you homeless or living in a senior care (including now)? No 07/15/2025 [facility] Utilities Answer Date Recorded In the [...] Visit Medical Office Building Urology [address], [address] [place] [address] Marj Matamoros, NOISE TESTER [address] [place] [address] documented as of this encounter [...] documented as of this encounter Care Teams Barrel Waterer Relationship Specialty Start Date End Date Yenny Dhillon APRN [address] [place] [address] PCP - General 07/22/23 documented as of this encounter
--- OUTSIDE RECORDS SUMMARY | 2025-08-20 21:19 | XMS_ITS | Encounter Summary ---
Author Organization [facility] Address [address] [place] [address] Care Team Providers Care Scrap Worker Name Role Phone Yenny Dhillon APRN Primary Care Provider [phone] Reason for Referral * Consultation (Routine) - Authorized Specialty Diagnoses / Procedures Referred By Bharati wiggins Referred To Contact Wound Care Diagnoses Necrotizing fasciitis (CMS/HCC) Lilliana Morfin APRN [address] [place] [address] Phone: tel: fax: Referral ID Status Reason Start Date Expiration Date Visits Requested Visits Authorized [id number] Authorized Specialty Services Required 08/12/2025 02/11/2027 1 1 Encounter Details Date Type Department Care Team (Late st Contact Info) Description 08/12/2025 Orders Only [facility] General Surgery [address], [address] [place] [address] Ninfa Tam, SHRIMP HEADER & ACUTE CARE SURG [facility] ACUTE T1 Necrotizing fasciitis (CMS/HCC) (Primary Dx) Social History Tobacco Use Types [...] time in the past 12 m [facility], were you homeless or living in a custodial (including now)? No 07/15/2025 [facility] Utilities Answer Date Recorded In the [...] Visit Medical Office Building Urology [address] [facility], [address] [place] [address] Marj Matamoros, MARINE RESOURCE ECONOMIST [address] [facility] [address] [place] [address] Scheduled Referrals Name Type Priority Associated Diagnoses Order Schedule Ambulatory referral to Wound Clinic Outpatient Referral Routine Necrotizing fasciitis (CMS/HCC) 1 Occurrences starting 08/12/2025 until 02/13/2027 documented as of this encounter Visit Diagnoses Diagnosis Necrotizing fasciitis (CMS/HCC)- Primary Necrotizing fasciitis documented in this encounter Additional Health Concerns Assessment Noted Time PHQ-9 Depression Total Score: 16 023 9:36 AM EDT A fall risk assessment has been complete d for the patient 08/31/2023 9:38 AM EDT A Body Mass Index follow-up plan has been documented for the patient 07/19/2025 10:51 AM EDT documented as of this encounter Care Teams Scrap Worker Relationship Specialty Start Date End Date Yenny Dhillon, MARINE RESOURCE ECONOMIST [address] [place] [address] PCP - General 07/22/23 documented as of this encounter
--- OUTSIDE RECORDS SUMMARY | 2025-08-20 21:19 | XMS_ITS | Encounter Summary ---
Author Organization Healthcare Address [address] [place] [address] Care Team Providers Care Bisque Kiln Drawer Name Role Phone DhillonYenny Lit CASTRO Primary Care Provider [phone] Reason for Visit * Reason Onset Date Comments [facility]CN Clinical Concern/Question 08/02/2025 Encounter Details Date Type Department Care Team (Late st Contact Info) Description 08/02/2025 Telephone [place] [facility] [address], [address] [place] [address] Marj Matamoros APRN [address] [place] [address] HCN Clinical Concern/Question Social History [...] living in a correction (including now)? No 07/15/2025 [facility] Utilities Answer Date Recorded In [...] encounter Miscellaneous Notes * Telephone Encounter - Erica Romero RN - 08/09/2025 3:49 PM EDT Ashley Brown contacted the clinic back. I told her that Marj Matamoros sent oxybutynin to [facility] [place]. She should go to the ER if there is no urine draining or she has any signs of infection. Patient plans to monitor urine output and to pick pulling machine tender the oxybutynin. She verbalized understanding to go to emergency department if catheter isn't draining or she develops signs of infection. * Telephone Encounter - Erica Romero RN - 08/09/2025 3:21 PM EDT I attempted to contact Ashley Brown by phone at [phone] and [phone]. There was no answer. I left a message for the patient to call the Urology Clinic at [phone]. * Telephone Encounter - Erica Romero RN - 08/09/2025 2:06 PM EDT I contacted Ashley Brown by phone at [phone]. Patient states that her catheter was placed [...] Pt is calling states she DC from [facility] on Tue. Was advised to call and make LUIS A follow up with Richelle Matamoros. Please advise Best contact number and optimal time of day to reach caller: [phone] Note: Please do not reply to this message. Follow-up communication and further actions as a result of this message need to be communicated with the patient directly, if the patient is not active onMyChart. If the patient is active on MyChart, they will receive notification of the communication/outcome via [employer]. documented in this encounter Plan of Treatment Upcoming Encounters Date Type Department Care Team (Late st Contact Info) Description 11/19/2025 8:20 AM EST Office Visit Medical Office Building Urology [address] [facility] [address] [facility], [address] [place] [address] Marj Matamoros, ALTERATIONS SEWER [address] [facility] [address] [place] [address] documented as of this encounter [...] documented as of this encounter Care Teams Bisque Kiln Drawer Relationship Specialty Start Date End Date Yenny Dhillon APRN [address] [place] [address] PCP - General 07/22/23 documented as of this encounter
--- OUTSIDE RECORDS SUMMARY | 2025-08-20 21:19 | XMS_ITS | Data Portability ---
Author Organization [facility] [place] [facility] ADMIN Address [address] [place] [id number] Care Team Providers Care Fusing Machine Feeder Name Role Phone BELIA HERNANDEZ Primary Care Provider [phone] Assessment Encounter Date Assessment Date Assessment LastModified [...] Samples of FDgard provided. -f/u 6 months [email or web address] Not available 09/19/2023 10:13:37 02/28/2024 02/28/2024 48-year-old [...] provider if symptoms continue. -f/u 1 month Not available 02/28/2024 13:03:42 03/29/2024 03/29/2024 48-year-old [...] provider if symptoms continue. -f/u 6 months Not available 03/30/2024 15:15:39 06/13/2025 06/13/2025 50-year-old [...] 12 months unless otherwise indicated by labs [email or web address] Not available 06/13/2025 09:46:20 Plan of Treatment Reminders Order Date Submit Date Provider Last Modified By Organization Details Last Modified Time Details Appointments Establish ed Visit 15 min 2025 09:15A M Loyd Allen PA-C Not available Not available Not available Lab vitamin D, 25-hydrox y, total, serum [address] (Registration ), [address], [place], [address], 06/24/2025 16:02:53 copper, serum or plasma [address] (Registration ), [address], [place], [address], 06/24/2025 16:02:53 CMP, serum or plasma 2024 025 [facility] (Registration ), [address], [place], [address], 06/14/2025 16:09:05 CBC [address] (Registration ), [address], [place], [address], 06/24/2025 16:02:54 vitamin B12 + folate, serum or blood [address] (Registration ), [address], [place], [address], 06/24/2025 16:02:54 zinc, serum or plasma [address] (Registration ), [address], [place], [address], 06/24/2025 16:02:54 iron + TIBC + ferritin, serum [address] (Registration ), [address], [place], [address], 06/24/2025 16:02:54 carotene, serum 2024 025 [facility] (Registration ), [address], [place], [address], 06/20/2025 10:12:16 vitamin A (retinol) , serum 2024 025 [facility] (Registration ), [address] [facility], [place], [address], 06/20/2025 06:11:54 vitamin E, serum 2024 025 [email or web address] 3 [facility] (Registration ), [address], [place], [address], 06/24/2025 16:02:54 celiac disease comprehen sive panel, serum 2024 025 [facility] (Registration ), [address], [place], [address], 06/17/2025 15:12:20 carotene, serum 2022 023 [email or web address] 4 [facility], [address], [facility] [address], [place], [address], 09/26/2023 15:01:59 zinc, serum or plasma 2022 023 [email or web address] 4 [facility], [address], [facility] [address], [place], [address], 09/26/2023 15:02:00 copper, serum or plasma 2022 023 [email or web address] 4 [facility], [address], [place], [address], 09/26/2023 15:02:00 unlisted lab - vitamin A and E 2022 023 [email or web address] 4 [facility], [address], [address], [place], [address], 09/26/2023 15:02:00 vitamin D, 25-hydrox y, total, serum 2022 023 [email or web address] 4 [facility], [address], [address], [place], [address], 09/26/2023 15:02:00 celiac disease IgA + HLA typing + serology panel, blood or tissue 2022 023 [email or web address] 4 [facility], [address], [address], [place], [address], 09/26/2023 15:02:00 CMP, serum or plasma 2022 023 [email or web address] 4 [facility], [address], [address], [place], [address], 09/26/2023 15:02:01 CBC 2022 023 [email or web address] 4 [facility], [address], [address], [place], [address], 09/26/2023 15:02:01 iron + TIBC + ferritin, serum 2022 023 [email or web address] 4 [facility], [address], [address], [place], [address], 09/26/2023 15:02:01 vitamin B12 + folate, serum or blood 2022 023 [email or web address] 4 [facility], [address], [address], [place], [address], 09/26/2023 15:02:01 Referral None recorded. Procedures nerve conductio n study/EMG , lower extremity (PROC) 2023 024 [email or web address] Not available 04/19/2024 13:27:00 Surgeries None recorded. Imaging None recorded. Medication Orders Linzess 72 mcg capsule 2023 024 [email or web address] [facility], [address], [address], 02/28/2024 12:59:56 Patient TargetsNo targets recorded. Patient [...] g Posit gaby >30 Not Available [facility] ([facility]) [address] [place], [address], 10/01/2023 07:08:22 09/19/2009/20/2023 IKE C DISEA SE COMPR EHENS GABY deamidated gliadin abs, IgG 14 units 0-19 Negat gaby 0 - 19 Weak Posit gaby 20 - 30 Moder ate to Stron g Posit gaby >30 Not Available [facility] ([facility]) [address] [place], [address], 10/01/2023 07:08:22 09/19/2009/20/2023 IKE C DISEA SE [...] tive enter opath y. Not Available [facility] ([facility]) [address] [place], [address], 10/01/2023 07:08:22 09/19/20 23 09/20/2023 IKE C DISEA SE COMPR EHENS GABY T-transgluta minase (ttg) IgG 5 U/mL 0-5 Negat gaby 0 - 5 Weak Posit gaby 6 - 9 Posit gaby >9 Not Available [facility] ([facility]) [address] [place], [address], 10/01/2023 07:08:22 09/19/20 23 09/20/2023 IKE C DISEA SE COMPR EHENS GABY endomysial antibody IgA NEGATI VE negati ve Not Available [facility] ([facility]) [address] [facility], [place], [address], 10/01/2023 07:08:22 09/19/20 23 09/20/2023 IKE C DISEA SE COMPR EHENS GABY immunoglobul in A, qn, serum 261 mg/dL 87-352 Not Available [facility] ([facility]) [address] [place], [address], 10/01/2023 07:08:22 09/19/20 23 09/20/2023 FE+TI BC+FE R iron bind.cap.(TI BC) 321 ug/dL 250-45 0 Not Available [facility] ([facility]) [address] [place], [address], 10/01/2023 07:08:23 09/19/20 23 09/20/2023 FE+TI BC+FE R UIBC 265 ug/dL 131-42 5 Not Available [facility] ([facility]) [address] [place], [address], 10/01/2023 07:08:23 09/19/20 23 09/20/2023 FE+TI BC+FE R iron 56 ug/dL 27-159 Not Available [facility] ([facility]) [address] [place], [address], 10/01/2023 07:08:23 09/19/20 23 09/20/2023 FE+TI BC+FE R iron saturation 17 % 15-55 Not Available [facility] ([facility]) [address] [place], [address], 10/01/2023 07:08:23 09/19/20 23 09/20/2023 FE+TI BC+FE R ferritin 86 NG/mL 15-150 Not Available [facility] ([facility]) [address] [facility], [place], [address], 10/01/2023 07:08:23 09/19/20 23 09/24/2023 VITAM IN [...] e gela cteri stics deter mined by [employer] . It has not been clear ed or appro juan ramon by the Food and Drug Admin istra tion. Not Available [facility] ([facility]) [address] [facility], [place], [address], 10/01/2023 07:08:23 09/19/20 23 09/24/2023 VITAM IN A AND E vitamin E(alpha tocopherol) 15.2 mg/L 7.0-25 .1 Not Available [facility] ([facility]) [address] [facility], [place], [address], 10/01/2023 07:08:23 09/19/20 23 09/24/2023 VITAM IN [...] in E defic ient. Not Available [facility] ([facility]) [address] [place], [address], 10/01/2023 07:08:23 09/19/20 23 09/20/2023 COMP. METAB OLIC PANEL (14) glucose 100 mg/dL 70-99 above high normal Not Available [facility] ([facility]) [address] [place], [address], 10/01/2023 07:08:24 09/19/20 23 09/20/2023 COMP. METAB OLIC PANEL (14) BUN 9 mg/dL 6-24 Not Available [facility] ([facility]) [address] [place], [address], 10/01/2023 07:08:24 09/19/20 23 09/20/2023 COMP. METAB OLIC PANEL (14) creatinine 0.72 mg/dL 0.57-1 .00 Not Available [facility] ([facility]) [address] [place], [address], 10/01/2023 07:08:24 09/19/20 23 09/20/2023 COMP. METAB OLIC PANEL (14) eGFR 104 mL/mi n/1.7 3 >59 Not Available [facility] ([facility]) [address] [place], [address], 10/01/2023 07:08:24 09/19/20 23 09/20/2023 COMP. METAB OLIC PANEL (14) BUN/creatini ne ratio 13 9-23 Not Available [facility] ([facility]) [address] [place], [address], 10/01/2023 07:08:24 09/19/20 23 09/20/2023 COMP. METAB OLIC PANEL (14) sodium 141 mmol/ L 134-14 4 Not Available [facility] ([facility]) [address] [place], [address], 10/01/2023 07:08:24 09/19/20 23 09/20/2023 COMP. METAB OLIC PANEL (14) potassium 4.3 mmol/ L 3.5-5. 2 Not Available [facility] ([facility]) [address] [facility], [place], [address], 10/01/2023 07:08:24 09/19/20 23 09/20/2023 COMP. METAB OLIC PANEL (14) chloride 103 mmol/ L 96-106 Not Available [facility] ([facility]) [address] [facility], [place], [address], 10/01/2023 07:08:24 09/19/20 23 09/20/2023 COMP. METAB OLIC PANEL (14) carbon dioxide, total 26 mmol/ L 20-29 Not Available [facility] ([facility]) [address] [facility], [place], [address], 10/01/2023 07:08:24 09/19/20 23 09/20/2023 COMP. METAB OLIC PANEL (14) calcium 9.8 mg/dL 8.7-10 .2 Not Available [facility] ([facility]) [address] [facility], [place], [address], 10/01/2023 07:08:24 09/19/20 23 09/20/2023 COMP. METAB OLIC PANEL (14) protein, total 6.3 g/dL 6.0-8. 5 Not Available [facility] ([facility]) [address] [facility], [place], [address], 10/01/2023 07:08:24 09/19/20 23 09/20/2023 COMP. METAB OLIC PANEL (14) albumin 3.9 g/dL 3.9-4. 9 Not Available [facility] ([facility]) [address] [facility], [place], [address], 10/01/2023 07:08:24 09/19/20 23 09/20/2023 COMP. METAB OLIC PANEL (14) globulin, total 2.4 g/dL 1.5-4. 5 Not Available [facility] ([facility]) [address] [place], [address], 10/01/2023 07:08:24 09/19/20 23 09/20/2023 COMP. METAB OLIC PANEL (14) A/G ratio 1.6 1.2-2. 2 Not Available [facility] ([facility]) [address] [facility], [place], [address], 10/01/2023 07:08:24 09/19/20 23 09/20/2023 COMP. METAB OLIC PANEL (14) bilirubin, total 0.2 mg/dL 0.0-1. 2 Not Available [facility] ([facility]) [address] [place], [address], 10/01/2023 07:08:24 09/19/20 23 09/20/2023 COMP. METAB OLIC PANEL (14) alkaline phosphatase 110 IU/L 44-121 Not Available [facility] ([facility]) [address] [place], [address], 10/01/2023 07:08:24 09/19/20 23 09/20/2023 COMP. METAB OLIC PANEL (14) AST (SGOT) 17 IU/L 0-40 Not Available [facility] ([facility]) [address] [place], [address], 10/01/2023 07:08:24 09/19/20 23 09/20/2023 COMP. METAB OLIC PANEL (14) ALT (SGPT) 16 IU/L 0-32 Not Available [facility] ([facility]) [address] [place], [address], 10/01/2023 07:08:24 09/19/20 23 09/20/2023 CBC, PLATE LET, NO DIFFE RENTI AL WBC 13.3 x10e3 /uL 3.4-10 .8 above high normal Not Available [facility] ([facility]) [address] [facility], [place], [address], 10/01/2023 07:08:25 09/19/20 23 09/20/2023 CBC, PLATE LET, NO DIFFE RENTI AL RBC 4.63 x10e6 /uL 3.77-5 .28 Not Available [facility] ([facility]) [address] [facility], [place], [address], 10/01/2023 07:08:25 09/19/2009/20/2023 CBC, PLATE LET, NO DIFFE RENTI AL hemoglobin 13.3 g/dL 11.1-1 5.9 Not Available [facility] ([facility]) [address] [facility], [place], [address], 10/01/2023 07:08:25 09/19/20 23 09/20/2023 CBC, PLATE LET, NO DIFFE RENTI AL hematocrit 40.2 % 34.0-4 6.6 Not Available [facility] ([facility]) [address] [facility], [place], [address], 10/01/2023 07:08:25 09/19/20 23 09/20/2023 CBC, PLATE LET, NO DIFFE RENTI AL MCV 87 fL 79-97 Not Available [facility] ([facility]) [address] [place], [address], 10/01/2023 07:08:25 09/19/2009/20/2023 CBC, PLATE LET, NO DIFFE RENTI AL MCH 28.7 pg 26.6-3 3.0 Not Available [facility] ([facility]) [address] [place], [address], 10/01/2023 07:08:25 09/19/20 23 09/20/2023 CBC, PLATE LET, NO DIFFE RENTI AL MCHC 33.1 g/dL 31.5-3 5.7 Not Available [facility] ([facility]) [address] [facility], [place], [address], 10/01/2023 07:08:25 09/19/20 23 09/20/2023 CBC, PLATE LET, NO DIFFE RENTI AL RDW 14.3 % 11.7-1 5.4 Not Available [facility] ([facility]) [address] [facility], [place], [address], 10/01/2023 07:08:25 09/19/20 23 09/20/2023 CBC, PLATE LET, NO DIFFE RENTI AL platelets 340 x10e3 /uL 150-45 0 Not Available [facility] ([facility]) [address] [facility], [place], [address], 10/01/2023 07:08:25 09/19/2009/20/2023 CBC, PLATE LET, NO DIFFE RENTI AL NRBC LOGISTICS LOSS PREVENTION 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 Not Available [facility] ([facility]) [address] [facility], [place], [address], 10/01/2023 07:08:26 09/19/20 23 09/20/2023 VITAM IN [...] and D. [place]: [facility] . 2. Carlo lawson MF, Itz johnson [place], Gifty off-F errar i LILLY, et al. Evalu ation , treat ment, and preve ntion of vitam in D defic iency : an Endoc rine Socie ty clini tracy pract ice guide line. JCEM. 2010; 96(7) :1911 -30. Not Available [facility] ([facility]) [address] [place], [address], 10/01/2023 07:08:27 09/19/20 23 09/22/2023 CAROT JUSTIN, BETA carotene, beta 2 ug/dL 3-91 below low normal Not Available [facility] ([facility]) [address] [place], [address], 10/01/2023 07:08:27 09/19/20 23 09/30/2023 COPPE R, SERUM OR PLASM A copper, serum or plasma 151 ug/dL 80-158 Detec tion Limit = 5 Not Available [facility] ([facility]) [address] [place], [address], 10/01/2023 07:08:28 09/19/20 23 09/30/2023 ZINC, PLASM A OR SERUM zinc, plasma or serum 65 ug/dL 44-115 Detec tion Limit = 5 Not Available [facility] ([facility]) [address], [place], [address], 10/01/2023 07:08:29 03/21/20 24 03/21/2024 CBC AUTO NO DIFF (HEMO GRAM) WBC 13.8 K/uL 4.0-10 .5 high Not Available [facility] ([facility]) [address] [facility], [place], [address], 03/21/2024 15:46:31 03/21/20 24 03/21/2024 CBC AUTO NO DIFF (HEMO GRAM) RBC 4.7 M/mm3 4.2-6. 4 Not Available [facility] ([facility]) [address] [facility], [place], [address], 03/21/2024 15:46:31 03/21/20 24 03/21/2024 CBC AUTO NO DIFF (HEMO GRAM) HGB 12.8 gm/dL 12.5-1 6.0 Not Available [facility] ([facility]) [address] [facility], [place], [address], 03/21/2024 15:46:31 03/21/20 24 03/21/2024 CBC AUTO NO DIFF (HEMO GRAM) HCT 40.3 % 37.0-4 7.0 Not Available [facility] ([facility]) [address] [facility], [place], [address], 03/21/2024 15:46:31 03/21/20 24 03/21/2024 CBC AUTO NO DIFF (HEMO GRAM) MCV 86.7 fL 78-100 Not Available [facility] ([facility]) [address] [place], [address], 03/21/2024 15:46:31 03/21/20 24 03/21/2024 CBC AUTO NO DIFF (HEMO GRAM) MCH 27.5 pg 27-31 Not Available [facility] ([facility]) [address] [place], [address], 03/21/2024 15:46:31 03/21/20 24 03/21/2024 CBC AUTO NO DIFF (HEMO GRAM) MCHC 31.8 g/dL 32-36 low Not Available [facility] ([facility]) [address], [place], [address], 03/21/2024 15:46:31 03/21/20 24 03/21/2024 CBC AUTO NO DIFF (HEMO GRAM) RDW 15.9 % 11.5-1 4.0 high Not Available [facility] ([facility]) [address], [place], [address], 03/21/2024 15:46:31 03/21/20 24 03/21/2024 CBC AUTO NO DIFF (HEMO GRAM) platelet count 343 K/uL 150-45 0 Not Available [facility] ([facility]) [address], [place], [address], 03/21/2024 15:46:31 03/21/20 24 03/21/2024 CBC AUTO NO DIFF (HEMO GRAM) MPV 9.7 fL 6-9.5 high Not Available [facility] ([facility]) [address], [place], [address], 03/21/2024 15:46:31 03/21/20 24 03/21/2024 CBC AUTO NO DIFF (HEMO GRAM) manual differential NO Not Available [facility] ([facility]) [address], [place], [address], 03/21/2024 15:46:31 03/21/20 24 03/21/2024 IRON STUDY (IRON /TIBC /%SAT ) iron 28 mcg/m L 40-180 low Not Available [facility] ([facility]) [address] [place], [address], 03/21/2024 16:38:09 03/21/20 24 03/21/2024 IRON STUDY (IRON /TIBC /%SAT ) TIBC 304 mcg/d L 250-45 0 Not Available [facility] ([facility]) [address], [place], [address], 03/21/2024 16:38:09 03/21/20 24 03/21/2024 IRON STUDY (IRON /TIBC /%SAT ) %sat 9 15-55 low Not Available [facility] ([facility]) [address], [place], [address], 03/21/2024 16:38:09 03/21/20 24 03/21/2024 COMP METAB OLIC PANEL sodium 139 mmol/ L 136-14 5 Not Available [facility] ([facility]) [address], [place], [address], 03/21/2024 17:04:08 03/21/20 24 03/21/2024 COMP METAB OLIC PANEL potassium 3.9 mmol/ L 3.6-5. 0 Not Available [facility] ([facility]) [address] [place], [address], 03/21/2024 17:04:08 03/21/20 24 03/21/2024 COMP METAB OLIC PANEL chloride 103 mmol/ L 98-107 Not Available [facility] ([facility]) [address] [place], [address], 03/21/2024 17:04:08 03/21/20 24 03/21/2024 COMP METAB OLIC PANEL carbon dioxide 24.9 mmol/ L 21.0-3 2.0 Not Available [facility] ([facility]) [address] [place], [address], 03/21/2024 17:04:08 03/21/20 24 03/21/2024 COMP METAB OLIC PANEL anion gap 15.0 Not Available [facility] ([facility]) [address] [facility] [place], [address], 03/21/2024 17:04:08 03/21/20 24 03/21/2024 COMP METAB OLIC PANEL glucose 132 mg/dL 70-120 high Not Available [facility] ([facility]) [address], [place], [address], 03/21/2024 17:04:08 03/21/20 24 03/21/2024 COMP METAB OLIC PANEL BUN 12 mg/dL 7-18 Not Available [facility] ([facility]) [address], [place], [address], 03/21/2024 17:04:08 03/21/20 24 03/21/2024 COMP METAB OLIC PANEL creatinine 0.7 mg/dL 0.6-1. 3 Not Available [facility] ([facility]) [address], [place], [address], 03/21/2024 17:04:08 03/21/20 24 03/21/2024 COMP METAB OLIC PANEL glomerular filtration rate >60 mlper min 60- Not Available [facility] ([facility]) [address], [place], [address], 03/21/2024 17:04:08 03/21/20 24 03/21/2024 COMP METAB OLIC PANEL total protein 6.4 g/dL 6.4-8. 2 Not Available [facility] ([facility]) [address], [place], [address], 03/21/2024 17:04:08 03/21/20 24 03/21/2024 COMP METAB OLIC PANEL albumin 3.3 g/dL 3.4-5. 0 low Not Available [facility] ([facility]) [address], [place], [address], 03/21/2024 17:04:08 03/21/20 24 03/21/2024 COMP METAB OLIC PANEL globulin 3.1 Not Available [facility] ([facility]) [address], [place], [address], 03/21/2024 17:04:08 03/21/20 24 03/21/2024 COMP METAB OLIC PANEL alb/glob ratio 1.1 0.7-2 Not Available [facility] ([facility]) [address], [place], [address], 03/21/2024 17:04:08 03/21/20 24 03/21/2024 COMP METAB OLIC PANEL calcium 9.3 mg/dL 8.5-10 .5 Not Available [facility] ([facility]) [address] [place], [address], 03/21/2024 17:04:08 03/21/20 24 03/21/2024 COMP METAB OLIC PANEL bilirubin total 0.30 mg/dL 0.10-1 .00 Not Available [facility] ([facility]) [address] , [place], [address], 03/21/2024 17:04:08 03/21/20 24 03/21/2024 COMP METAB OLIC PANEL AST (SGOT) 13 U/L 0-37 Not Available [facility] ([facility]) [address] , [place], [address], 03/21/2024 17:04:08 03/21/20 24 03/21/2024 COMP METAB OLIC PANEL ALT (SGPT) 23 U/L 0-65 Not Available [facility] ([facility]) [address] , [place], [address], 03/21/2024 17:04:08 03/21/20 24 03/21/2024 COMP METAB OLIC PANEL alk phosphatase 129 U/L 46-116 high Not Available [facility] ([facility]) [address] , [place], [address], 03/21/2024 17:04:08 03/21/20 24 03/21/2024 DONATO TIN ferritin, serum 35 NG/mL 3-244 Not Available [facility] ([facility]) [address] [facility], [place], [address], 03/21/2024 17:04:10 03/21/20 24 03/21/2024 VITAM IN D, 25-HY DROXY vitamin D, 25-hydroxy 49.3 NG/mL 30.0-1 00.0 Not Available [facility] ([facility]) [address] [facility], [place], [address], 03/21/2024 17:19:33 03/21/20 24 03/21/2024 VITAM IN B12 vitamin B12 764 pg/mL 193-98 6 *Note : Refer alis Irwin. New Test Metho d in use. Not Available [facility] ([facility]) [address] [facility], [place], [address], 03/21/2024 18:29:45 03/21/20 24 03/21/2024 VITAM IN B12 folate (folic acid), serum 20.2 NG/mL 8.6-58 .9 *Note : Refer alis Irwin. New Test Metho d in use. Not Available [facility] ([facility]) [address] [facility], [place], [address], 03/21/2024 18:29:45 03/21/20 24 03/22/2024 IKE C DISEA SE COMPR EHENS GABY deamidated gliadin Ab, IgA 59 units 0-19 high Negat gaby 0 - 19 Weak Posit gaby 20 - 30 Moder ate to Stron g Posit gaby >30 Not Available [facility] ([facility]) [address] [place], [address], 03/22/2024 17:10:49 03/21/20 24 03/22/2024 IKE C DISEA SE COMPR EHENS GABY deamidated gliadin Ab, IgG 32 units 0-19 high Negat gaby 0 - 19 Weak Posit gaby 20 - 30 Moder ate to Stron g Posit gaby >30 Not Available [facility] ([facility]) [address] [facility], [place], [address], 03/22/2024 17:10:49 03/21/20 24 03/22/2024 IKE C DISEA SE COMPR EHENS GABY IgA 208 mg/dL 87-352 Perfo rmed at: CB - [facility] n [address], [place] [address] 1269 Lab Direc tor: Edi morrison PhD, Phone : [phone] Not Available [facility] ([facility]) [address] [facility], [place], [address], 03/22/2024 17:10:49 03/21/20 24 03/22/2024 IKE C [...] sensi tive enter opath y. Not Available [facility] ([facility]) [address] [facility], [place], [address], 03/22/2024 17:10:49 03/21/20 24 03/22/2024 IKE C DISEA SE COMPR EHENS GABY T-transgluta minase (ttg), IgG 4 U/mL 0-5 Negat gaby 0 - 5 Weak Posit gaby 6 - 9 Posit gaby >9 Not Available [facility] ([facility]) [address] [facility], [place], [address], 03/22/2024 17:10:49 03/21/20 24 03/22/2024 IKE C DISEA SE COMPR EHENS GABY endomysial Ab, IgA Positi ve negati ve delta Not Available [facility] ([facility]) [address] [facility], [place], [address], 03/22/2024 17:10:49 03/21/20 24 03/23/2024 COPPE R BLOOD copper, serum plasma 131 ug/dL 80-158 Speci men Comme nt: Test( s) 88002 [employer] Technician per, Serum or Plasm a Speci men Comme nt: was devel oped and its perfo rmanc e gela cte risti cs Speci men Comme nt: deter mined by [facility]. It has not been michelle ared or appro juan ramon Speci men Comme nt: by the Food and Drug Admin istra tion. Detec tion Limit = 5 Perfo rmed at: [facility] [address] [address] Lab Direc tor: Letty garces MD, Phone : [phone] Not Available [facility] ([facility]) [address] [facility], [place], [address], 03/23/2024 08:20:55 03/21/20 24 03/23/2024 ZINC BLOOD zinc, plasma or serum 57 ug/dL 44-115 Speci men Comme nt: Test( s) 87548 0-Zin c, Plasm a or Serum Speci men Comme nt: was devel oped and its perfo rmanc e gela cte risti cs Speci men Comme nt: deter mined by [employer]. It has not been michelle ared or appro juan ramon Speci men Comme nt: by the Food and Drug Admin istra tion. Detec tion Limit = 5 Perfo rmed at: [facility] [address] [address] Lab Direc tor: Letty garces MD, Phone : [phone] Not Available [facility] ([facility]) [address] [facility], [place], [address], 03/23/2024 08:20:56 03/21/20 24 03/26/2024 VITAM IN [...] e gela cteri stics deter mined by [employer]. It has not been clear ed or appro juan ramon by the Food and Drug Admin istra tion. Perfo rmed at: [facility] [place] [address] [facility] [place] [address] 8[address] Lab Direc tor: Letty garces MD, Phone : [phone] Not Available [facility] ([facility]) [address] [facility], [place], [address], 03/26/2024 17:26:35 03/21/20 24 03/26/2024 VITAM IN E vitamin E(alpha tocopherol) 12.8 mg/L 7.0-25 .1 Not Available [facility] ([facility]) [address] [facility], [place], [address], 03/26/2024 17:26:36 03/21/20 24 03/26/2024 VITAM IN [...] in E defic ient. Perfo rmed at: [facility] Lisette del rosario [address] [facility] [place] [address] 3[address] Lab Direc tor: Letty garces MD, Phone : [phone] Not Available [facility] ([facility]) [address] [place], [address], 03/26/2024 17:26:36 03/21/20 24 03/30/2024 CAROT JUSTIN, BETA carotene, beta 2 ug/dL 3-91 low Perfo rmed at: [facility] Lisette del rosario [address] [place] [address] 336 Lab Direc tor: Letty garces MD, Phone : [phone] Not Available [facility] ([facility]) [address] [facility], [place], [address], 03/30/2024 06:14:59 06/14/20 25 06/14/2025 CBC NO DIFF (HEMO GRAM) WBC 12.4 K/uL 4.0-10 .5 high Not Available [facility] ([facility]) [address] [facility], [place], [address], 06/14/2025 15:42:01 06/14/20 25 06/14/2025 CBC NO DIFF (HEMO GRAM) RBC 4.8 M/mm3 4.2-6. 4 Not Available [facility] ([facility]) [address] [facility], [place], [address], 06/14/2025 15:42:01 06/14/20 25 06/14/2025 CBC NO DIFF (HEMO GRAM) HGB 13.1 gm/dL 12.5-1 6.0 Not Available [facility] ([facility]) [address] [place], [address], 06/14/2025 15:42:01 06/14/20 25 06/14/2025 CBC NO DIFF (HEMO GRAM) HCT 41.9 % 37.0-4 7.0 Not Available [facility] ([facility]) [address] [place], [address], 06/14/2025 15:42:01 06/14/20 25 06/14/2025 CBC NO DIFF (HEMO GRAM) MCV 87.7 fL 78-100 Not Available [facility] ([facility]) [address], [place], [address], 06/14/2025 15:42:01 06/14/20 25 06/14/2025 CBC NO DIFF (HEMO GRAM) MCH 27.4 pg 27-31 Not Available [facility] ([facility]) [address], [place], [address], 06/14/2025 15:42:01 06/14/20 25 06/14/2025 CBC NO DIFF (HEMO GRAM) MCHC 31.3 g/dL 32-36 low Not Available [facility] ([facility]) [address], [place], [address], 06/14/2025 15:42:01 06/14/20 25 06/14/2025 CBC NO DIFF (HEMO GRAM) RDW 17.3 % 11.5-1 4.0 high Not Available [facility] ([facility]) [address], [place], [address], 06/14/2025 15:42:01 06/14/20 25 06/14/2025 CBC NO DIFF (HEMO GRAM) platelet count 281 K/uL 150-45 0 Not Available [facility] ([facility]) [address], [place], [address], 06/14/2025 15:42:01 06/14/20 25 06/14/2025 CBC NO DIFF (HEMO GRAM) MPV 10.2 fL 6-9.5 high Not Available [facility] ([facility]) [address], [place], [address], 06/14/2025 15:42:01 06/14/20 25 06/14/2025 COMP METAB OLIC PANEL sodium 145 mmol/ L 136-14 5 Not Available [facility] ([facility]) [address], [place], [address], 06/14/2025 16:09:05 06/14/20 25 06/14/2025 COMP METAB OLIC PANEL potassium 4.0 mmol/ L 3.6-5. 0 Not Available [facility] ([facility]) [address] [place], [address], 06/14/2025 16:09:05 06/14/20 25 06/14/2025 COMP METAB OLIC PANEL chloride 105 mmol/ L 98-107 Not Available [facility] ([facility]) [address], [place], [address], 06/14/2025 16:09:05 06/14/20 25 06/14/2025 COMP METAB OLIC PANEL carbon dioxide 31.9 mmol/ L 21.0-3 2.0 Not Available [facility] ([facility]) [address], [place], [address], 06/14/2025 16:09:05 06/14/20 25 06/14/2025 COMP METAB OLIC PANEL anion gap 12.1 Not Available [facility] ([facility]) [address] [place], [address], 06/14/2025 16:09:05 06/14/20 25 06/14/2025 COMP METAB OLIC PANEL glucose 162 mg/dL 70-120 high Not Available [facility] ([facility]) [address] [place], [address], 06/14/2025 16:09:05 06/14/20 25 06/14/2025 COMP METAB OLIC PANEL BUN 12 mg/dL 7-18 Not Available [facility] ([facility]) [address] [place], [address], 06/14/2025 16:09:05 06/14/20 25 06/14/2025 COMP METAB OLIC PANEL creatinine 1.1 mg/dL 0.6-1. 3 Not Available [facility] ([facility]) [address], [place], [address], 06/14/2025 16:09:05 06/14/20 25 06/14/2025 COMP METAB [...] subramanian ing kiney funct ion. Not Available [facility] ([facility]) [address], [place], [address], 06/14/2025 16:09:05 06/14/20 25 06/14/2025 COMP METAB OLIC PANEL osmolality (calculated) 304 mOsm/ kg 275-30 1 high OSMOL ALITY IS A CALCU LATIO N UTILI ZING THE SERUM /PLAS MA SODIU M, GLUCO SE AND UREA NITRO GEN (BUN) LEVEL S. FOR THE MOST ACCUR ATE RESUL T A MEASU RED SERUM OSMOL ALITY IS SUGVENU SAMAYOAD. Not Available [facility] ([facility]) [address], [place], [address], 06/14/2025 16:09:05 06/14/20 25 06/14/2025 COMP METAB OLIC PANEL total protein 6.5 g/dL 6.4-8. 2 Not Available [facility] ([facility]) [address], [place], [address], 06/14/2025 16:09:05 06/14/20 25 06/14/2025 COMP METAB OLIC PANEL albumin 3.1 g/dL 3.4-5. 0 low Not Available [facility] ([facility]) [address], [place], [address], 06/14/2025 16:09:05 06/14/20 25 06/14/2025 COMP METAB OLIC PANEL globulin 3.4 Not Available [facility] ([facility]) [address] [place], [address], 06/14/2025 16:09:05 06/14/20 25 06/14/2025 COMP METAB OLIC PANEL alb/glob ratio 0.9 0.7-2 Not Available [facility] ([facility]) [address], [place], [address], 06/14/2025 16:09:05 06/14/20 25 06/14/2025 COMP METAB OLIC PANEL calcium 8.9 mg/dL 8.5-10 .5 Not Available [facility] ([facility]) [address], [place], [address], 06/14/2025 16:09:05 06/14/20 25 06/14/2025 COMP METAB OLIC PANEL bilirubin total 0.30 mg/dL 0.10-1 .00 Not Available [facility] ([facility]) [address], [place], [address], 06/14/2025 16:09:05 06/14/20 25 06/14/2025 COMP METAB OLIC PANEL AST (SGOT) 11 U/L 0-37 Not Available [facility] ([facility]) [address] [place], [address], 06/14/2025 16:09:05 06/14/20 25 06/14/2025 COMP METAB OLIC PANEL ALT (SGPT) 30 U/L 0-65 Not Available [facility] ([facility]) [address] [place], [address], 06/14/2025 16:09:05 06/14/20 25 06/14/2025 COMP METAB OLIC PANEL alk phosphatase 119 U/L 46-116 high Not Available [facility] ([facility]) [address], [place], [address], 06/14/2025 16:09:05 06/14/20 25 06/14/2025 DONATO TIN ferritin, serum 31 NG/mL 3-244 Not Available [facility] ([facility]) [address], [place], [address], 06/14/2025 16:09:08 06/14/20 25 06/14/2025 IRON STUDY (IRON /TIBC /%SAT ) iron 38 mcg/m L 40-180 low Not Available [facility] ([facility]) [address], [place], [address], 06/14/2025 17:13:13 06/14/20 25 06/14/2025 IRON STUDY (IRON /TIBC /%SAT ) TIBC 328 mcg/d L 250-45 0 Not Available [facility] ([facility]) [address] [place], [address], 06/14/2025 17:13:13 06/14/20 25 06/14/2025 IRON STUDY (IRON /TIBC /%SAT ) %sat 12 15-55 low Not Available [facility] ([facility]) [address] [place], [address], 06/14/2025 17:13:13 06/14/20 25 06/14/2025 VITAM IN D, 25-HY DROXY vitamin D, 25-hydroxy 43.4 NG/mL 30.0-1 00.0 Not Available [facility] ([facility]) [address] [place], [address], 06/14/2025 17:23:58 06/14/20 25 06/14/2025 VITAM IN B12 vitamin B12 694 pg/mL 193-98 6 *Note : Refer ence Inter maria guadalupe tirado. New Test Metho d in use. Not Available [facility] ([facility]) [address], [place], [address], 06/14/2025 17:23:59 06/14/20 25 06/14/2025 VITAM IN B12 folate (folic acid), serum 2.3 NG/mL 8.6-58 .9 low *Note : Refer ence Inter maria guadalupe Subramanian e. New Test Metho d in use. Not Available [facility] ([facility]) [address], [place], [address], 06/14/2025 17:23:59 06/14/20 25 06/17/2025 IKE C DISEA SE COMPR EHENS GABY deamidated gliadin Ab, IgA 9 units 0-19 Negat gaby 0 - 19 Weak Posit gaby 20 - 30 Moder ate to Stron g Posit gaby >30 Not Available [facility] ([facility]) [address] [facility], [place], [address], 06/17/2025 15:12:20 06/14/20 25 06/17/2025 IKE C DISEA SE COMPR EHENS GABY deamidated gliadin Ab, IgG 5 units 0-19 Negat gaby 0 - 19 Weak Posit gaby 20 - 30 Moder ate to Stron g Posit gaby >30 Not Available [facility] ([facility]) [address], [place], [address], 06/17/2025 15:12:20 06/14/20 25 06/17/2025 IKE C DISEA SE COMPR EHENS GABY IgA 210 mg/dL 87-352 Perfo rmed at: [facility] [address] [place] [address] [facility] Lab Direc tor: Edi morrison PhD, Phone : [phone] Not Available [facility] ([facility]) [address] [facility], [place], [address], 06/17/2025 15:12:20 06/14/20 25 06/17/2025 IKE C [...] sensi tive enter opath y. Not Available [facility] ([facility]) [address] [facility], [place], [address], 06/17/2025 15:12:20 06/14/20 25 06/17/2025 IKE C DISEA SE COMPR EHENS GABY T-transgluta minase (ttg), IgG 5 U/mL 0-5 Negat gaby 0 - 5 Weak Posit gaby 6 - 9 Posit gaby >9 Not Available [facility] ([facility]) [address] [facility], [place], [address], 06/17/2025 15:12:20 06/14/20 25 06/17/2025 IKE C DISEA SE COMPR EHENS GABY endomysial Ab, IgA NEGATI VE negati ve Not Available [facility] ([facility]) [address] [facility], [place], [address], 06/17/2025 15:12:20 06/14/20 25 06/18/2025 ZINC BLOOD zinc, plasma or serum 56 ug/dL 44-115 Speci men Comme nt: Test( s) 35139 0-Zin c, Plasm a or Serum Speci men Comme nt: was devel oped and its perfo rmanc e gela cte risti cs Speci men Comme nt: deter mined by [employer]. It has not been michelle ared or appro juan ramon Speci men Comme nt: by the Food and Drug Admin istra tion. Detec tion Limit = 5 Perfo rmed at: [facility] [address] [place] [address] Lab Dire tor: Letty garces MD, Phone : [phone] Not Available [facility] ([facility]) [address] [facility], [place], [address], 06/18/2025 17:12:39 06/14/20 25 06/20/2025 COPPE R BLOOD copper, serum plasma 104 ug/dL 80-158 Speci men Comme nt: Test( s) 71244 [employer] Technician per, Serum or Plasm a Speci men Comme nt: was devel oped and its perfo rmanc e gela cte risti cs Speci men Comme nt: deter mined by [employer]. It has not been michelle ared or appro juan ramon Speci men Comme nt: by the Food and Drug Admin istra tion. Detec tion Limit = 5 Perfo rmed at: [facility] [address] [address] Lab Dire tor: Letty garces MD, Phone : [phone] Not Available [facility] ([facility]) [address] [facility], [place], [address], 06/20/2025 06:11:52 06/14/20 25 06/20/2025 VITAM IN A vitamin A, serum 26.6 ug/dL 20.1-6 2.0 Refer ence inter vals for vitam in A deter mined from [employer] inter nal studi es. Indiv idual s with vitam in A less than 20 ug/dL are consi dered vitam in A defic ient and those with serum rema ntrat ions less than 10 ug/dL are consi dered sever seema defic ient. . This test was devel oped and its perfo rmanc e gela cteri stics deter mined by [employer]. It has not been clear ed or appro juan ramon by the Food and Drug Admin istra tion. Perfo rmed at: [facility] Lisette del rosario [address] [place] [address] Lab Direc tor: Letty garces MD, Phone : [phone] Not Available [facility] ([facility]) [address], [place], [address], 06/20/2025 06:11:54 06/14/20 25 06/20/2025 VITAM IN E vitamin E(alpha tocopherol) 33.9 mg/L 7.0-25 .1 high Not Available [facility] ([facility]) [address], [place], [address], 06/20/2025 06:11:56 06/14/20 25 06/20/2025 VITAM IN [...] rmed at: - [facility] [place]ette [place] [address] [place] [address] Lab Direc tor: Letty garces MD, Phone : [phone] Not Available [facility] ([facility]) [address], [place], [address], 06/20/2025 06:11:56 06/14/20 25 06/20/2025 CAROT JUSTIN, BETA carotene, beta <1 ug/dL 3-91 low Liudmila ified by repea t mahin sis Perfo rmed at: - [facility] [address] [place] [id number] Lab Direc tor: Letty garces MD, Phone : [phone] Not Available [facility] ([facility]) [address], [place], [address], 06/20/2025 10:12:16 Result Notes None recorded. Problems Name Problem SNOMED Code Status Onset Date Resolution Date Notes Provider Name and Address Organization Details Recorded Time Chronic constipation 945388786 Active 2022 Riri Anderson null, [place] [facility] [place] 3 09:17:43 Right inguinal hernia 302747392 Active 2022 Riri Anderson null, [place] 3 09:18:04 Weight management program Active 2022 Riri Anderson null, [place] [facility] [place] 3 09:18:16 Asthma 364893025 Active 2022 Riri [place] null, [place] [facility] [place] 3 09:18:51 Chronic obstructive pulmonary disease 69239888 Active 2022 Ririrashaad Anderson null, [place] [facility] [place] 3 09:18:58 Depressive disorder 70235142 Active 2022 Riri Anderson null, [place] [facility] [facility] [place] 3 09:19:37 Anxiety 06914268 Active 2022 Riri Anderson null, [place] 3 09:19:42 Chronic idiopathic constipation 18227688 Active 2022 Loyd Allen PA-C [address], [place], [address] , [place] [facility] & [place] 3 09:43:32 Upper abdominal pain 55689224 Active 2022 Loyd Allen PA-C [address], [place], [address] , [place] [facility] [place] 3 09:43:40 Excessive belching 155810373 Active 2022 Loyd Allen PA-C [address], [place], [address] , [place] [facility] [place] 3 09:43:52 Heartburn 26376488 Active [address], [facility] [address] , [place] - [facility] & [place] 3 09:43:58 Celiac disease 875997186 Active [address], [place] [address] , [place] - [facility] & [place] 3 10:06:52 Helicobacter pylori gastrointesti nal tract infection 999225369 Active [address], [facility] [address] , [place] [facility] [facility] & [place] 3 10:44:33 Vitamin E deficiency 75601939 Active [address], [facility] [address] , [place] - [facility] [facility] & [place] 3 09:44:58 Folic acid deficiency 360495488 Active 2022 [address] , [facility] [address] , [place] - [facility] & [place] 5 15:57:53 Paresthesia of lower extremity 246935826 Active [address], [facility] [address] , [place] - [facility] & [place] 4 13:26:52 Problem Notes None recorded. Procedures Surgical History Date Name Laterality Status Provider Name and Address Organization Details Recorded Time 04/19/20 EMG/ Nerve Conduction Study completed DO [address], [place], [address], [place] [facility] & [place] 04/19/2024 13:26:45 Hysterectomy completed Riri Anderson [place] [facility] & [place] 02/01/2023 09:29:15 excision of mass completed Riri LANDA [facility] 02/01/2023 09:32:34 Imaging Results None recorded. Procedure Notes None recorded. Medical Equipment None Reported. Allergies Allergen ID Allergen Name Allergen Category Reaction Reaction Severity Criticality Documentation Date Start Date Code Code System Note Provider Name and Address Organization Details Recorded Time 42273 Product containin g penicilli n (product) medicatio n Not available Not available Not available 02/01/2023 66066 8001 SNOMED DALILA Clifford [facility] & [place] 3 09:13:04 17102 doxycycli ne Not available Not available Not available Not available 02/01/2023 3640 RxNorm DALILA Clifford [facility] & [place] 3 09:13:09 22237 aspirin medicatio n Not available Not available Not available 02/01/2023 1191 RxNorm DALILA Clifford [facility] & [place] 3 09:13:20 32667 Valium medicatio n Not available Not available Not available 02/01/2023 28389 2 RxNorm DALILA Clifford [facility] & [place] 3 09:13:40 20847 Xanax medicatio n Not available Not available Not available 02/01/2023 29063 3 RxNorm DALILA Clifford [facility] & [place] 3 09:13:44 91325 Wellbutri n medicatio n Not available Not available Not available 02/01/2023 18212 RxNorm DALILA Clifford [facility] & [place] 3 09:13:48 Medications Name Sig Start Date [...] Updated DateTime 4 177.8 cm 46.1 kg/m2 549100. 59 g 97.9 [degF] 98 % 98 % 87 /min 84 /min 102/70 mm[Hg] Mora Siddiqui [facility] & [place] 4 11:05:31 Date Recorded Body height Body mass index (BMI) Body weight Heart rate Systolic And Diastolic Provider Name and Address Organization Details Last Updated DateTime 04/19/2024 177.8 cm 47.9 kg/m2 582049.8 5 g 80 /min 116/68 mm[Hg] Flores Piter [facility] & [place] 04/19/2024 12:57:46 Date Recorded Body height Body mass index (BMI) Body weight Body temperature Oxygen saturation Oxygen saturation in Arterial blood by Pulse oximetry Heart rate Systolic And Diastolic Provider Name and Address Organization Details Last Updated DateTime 5 177.8 cm 50.1 kg/m2 756231. 74 g 97.2 [degF] 96 % 96 % 85 /min 142/88 mm[Hg] Cassandrasailaja Mackey [facility] & [place] 5 09:25:26 Date Recorded Body height Body mass index (BMI) Body weight Body temperature Oxygen saturation Oxygen saturation in Arterial blood by Pulse oximetry Heart rate Heart rate Systolic And Diastolic Provider Name and Address Organization Details Last Updated DateTime 3 177.8 cm 48.6 kg/m2 981380. 02 g 97.5 [degF] 97 % 97 % 113 /min 118 /min 128/74 mm[Hg] Mora Siddiqui [place] - [facility] & [place] 09:39:09 Social History None recorded. Functional Status Question Answer Note LastModified by Organization D etails LastModified Time What is your level of alcohol consumption? None [email or web address] Information not available 02/01/2023 Mental Status None [...] ICD10 Code Diagnosis IMO Codes Diagnosis Note [id number] Loyd Allen PA-C [facility] [place] [id number] 2 02/01/2023 09:04:54 02/01/2023 09:44:15 Chronic idiopathic constipation 80315095 K59.04 Upper abdominal pain 831 72401 R10.10 Excessive belching 63178 7000 R14.2 Heartburn 19883425 R12 [id number] Loyd Allen PA-C [facility] [address] [address] 04/13/2023 09:23:05 04/13/2023 10:24:41 History of Helicobacter pylori infection 8137562426 6658907 Z86.19 Celiac disease 633883741 K90.0 Chronic id iopathic constipation 97505322 K59.04 Upper abdominal pain 831 74432 R10.10 Excessive belching 17390 7000 R14.2 Heartburn 93278036 R12 [id number] Loyd Allen PA-C [facility] [address] [address] 05/18/2023 09:41:06 05/18/2023 09:57:39 History of Helicobacter pylori infection [id number] 3792912 Z86.19 Celiac disease 409816857 K90.0 Chronic id iopathic constipation 11050992 K59.04 Upper abdominal pain 831 [id number] R10.10 Excessive belching 11323 7000 R14.2 Heartburn 13474069 R12 Vitamin E deficiency 541 66840 E56.0 Folic acid deficiency 19 7019672 E53.8 [id number] Loyd Allen PA-C [facility] [place] [id number] 2 09/19/2023 09:32:59 09/19/2023 10:23:45 History of Helicobacter pylori infection [id number] Z86.19 Celiac disease 628203812 K90.0 Chronic id iopathic constipation 58125337 K59.04 Upper abdominal pain 831 05274 R10.10 Excessive belching 26149 7000 R14.2 Vitamin E deficiency 541 15795 E56.0 Folic acid deficiency 19 8670813 E53.8 [id number] Loyd Allen PA-C [facility] [place] [id number] 2 02/28/2024 10:30:24 02/28/2024 11:27:52 History of Helicobacter pylori infection [id number] 2307643 Z86.19 Celiac disease 905601386 K90.0 Chronic id iopathic constipation 43129763 K59.04 Upper abdominal pain 831 66752 R10.10 Excessive belching 92483 7000 R14.2 Vitamin E deficiency 541 49871 E56.0 Folic acid deficiency 19 8115794 E53.8 [id number] Loyd Allen PA-C [facility] [place] [id number] 2 03/29/2024 09:48:26 03/29/2024 10:35:00 History of Helicobacter pylori infection [id number] 0452082 Z86.19 Celiac disease 300874206 K90.0 Chronic id iopathic constipation 35873968 K59.04 Upper abdominal pain 831 75694 R10.10 Excessive belching 24572 7000 R14.2 Vitamin E deficiency 541 84847 E56.0 Folic acid deficiency 19 3521513 E53.8 [id number] DO JORGE Pollock [facility] [address] [place] [address] 04/19/2024 12:54:22 04/19/2024 13:41:30 Paresthesia of lower extremity [id number] R20.2 [id number] Loyd Allen PA-C [facility] [address] [place] [address] 06/13/2025 09:15:17 06/13/2025 09:46:41 History of Helicobacter pylori infection [id number] 8120130 Z86.19 Celiac disease 330167466 K90.0 Obtain labs for monitoring . Continue previously prescribed vitamins. Chronic id iopathic constipation 59471045 K59.04 Upper abdominal pain 831 38106 R10.10 Health Concerns Section Related Observation LastModified by Organization Detai ls LastModified Time None Recorded Concern Status LastModified by Organization Details LastModified Time None Recorded Advance Directives Directive None Recorded Payers Insurance Date Sequence Insurance Name Policy Number Policy Quevedo Covered Member ID Quevedo Member ID Guarantor Name 06/13/2025 1 [facility] (MEDICAID REPLACEMENT - HMO) [id number] Ashley Brown [id number] Ashley Brown 06/13/2025 1 [place] [id number] Ashley Brown [id number] Ashley Brown Notes Date Note Type [...] with sulfer-like taste as well as some filler and trimmer nausea. She is taking Ozempic and reports over 50 lb weight loss. Loyd Allen PA-C [address] , [place], [address], [facility] - [place] & [place] 09/19/2023 11:19:06 02/28/2024 text/html Ms. Brown is [...] compliant with this. Loyd Allen PA-C [address] [facility], [place], [address], [place] - [facility] - [place] & [place] 02/28/2024 13:03:58 03/29/2024 text/html PREVIOUS (02/28/24): Ms. [...] care. Loyd Allen PA-C [address], [place], [address], [facility] & [place] 03/30/2024 15:15:53 06/13/2025 text/html Ms. Brown is [...] Ozempic. Loyd Allen PA-C [address], [place], [address], [facility] & [place] 06/13/2025 09:46:40 OBGyn Episode No OBEpisode recorded.
--- OUTSIDE RECORDS SUMMARY | 2025-08-20 21:19 | XMS_ITS | Encounter Summary ---
Author Organization Healthcare Address [address] [place] [address] Care Team Providers Care Handle Lathe Operator Name Role Phone Yenny Dhillon APRN Primary Care Provider [phone] Encounter Details Date Type Department Care Team [...] time in the past 12 m [facility], were you homeless or living in a [facility] (including now)? No 07/15/2025 [facility] Utilities Answer Date Recorded In [...] Medical Office Building Urology [address], [address] [place] [address] Marj Matamoros APRN [address] [place] [address] documented as of this encounter [...] documented as of this encounter Care Teams Handle Lathe Operator Relationship Specialty Start Date End Date Yenny Dhillon APRN [address] [place] [address] PCP - General 07/22/23 documented as of this encounter
--- OUTSIDE RECORDS SUMMARY | 2025-08-20 21:20 | XMS_ITS | Encounter Summary ---
Author Organization Healthcare Address [address] [place] [address] Care Team Providers Care Digital Community Manager Name Role Phone Yenny Dhillon APRN Primary Care Provider [phone] Encounter Details Date Type Department Care Team (Latest Contact Info) Description 08/20/2025 Travel Social History Tobacco Use Types Packs/Day [...] any time in the past 12 m [facility], were you homeless or living in a care home (including now)? No 07/15/2025 [facility] Utilities Answer Date Recorded In the [...] Medical Office Building Urology [address], [address] [place] [address] Marj Matamoros, CHANNEL DEVELOPMENT MANAGER [address] [place] [address] documented as of this encounter [...] documented as of this encounter Care Teams Digital Community Manager Relationship Specialty Start Date End Date Yenny Dhillon APRN [address] [place] [address] PCP - General 07/22/23 documented as of this encounter
--- OUTSIDE RECORDS SUMMARY | 2025-08-20 21:20 | XMS_ITS | Encounter Summary ---
Author Organization Healthcare Address [address] [place] [address] Care Team Providers Care Solderer Dipper Name Role Phone Yenny Dhillon APRN Primary Care Provider [phone] Encounter Details Date Type Department Care Team (Late st Contact Info) Description 08/09/2025 Orders Only [facility] [address] [place] [address] Marj Matamoros, BUSINESS ECONOMIST [address] [place] [address] Bladder spasms (Primary Dx) Social [...] time in the past 12 m [facility], were you homeless or living in a longterm (including now)? No 07/15/2025 [facility] Utilities Answer Date Recorded In [...] Upcoming Encounters Date Type Department Care Team ([facility] Contact Info) Description 11/19/2025 8:20 AM EST Office Visit Medical Office Building Urology [address], [address] [place] [address] Marj Matamoros, BUSINESS ECONOMIST [address] [place] [address] documented as of this encounter Visit Diagnoses [...] documented as of this encounter Care Teams Solderer Dipper Relationship Specialty Start Date End Date Yenny Dhillon, BUSINESS ECONOMIST [address] [place] [address] PCP - General 07/22/23 documented as of this encounter
--- OUTSIDE RECORDS SUMMARY | 2025-08-20 21:20 | XMS_ITS | Clinical Summary ---
Author Organization Healthcare Address [address] [place] [address] Care Team Providers Care Office Machine Inspector Name Role Phone AlejoYenny Lit CASTRO Primary Care Provider [phone] Allergies Active Allergy Reactions Criticality Noted Date [...] tablet by mouth 1 time each day. 3 Active Vitamin E 180 MG (400 UNIT) capsule Take 1 tablet by mouth daily. 3 Active rosuvastatin (Crestor) 20 MG tablet Take 1 tablet by mouth daily. 3 Active naproxen (Naprosyn) 500 MG tablet Take 1 tablet by mouth 2 times a day with meals. 3 Active montelukast (Singulair) 10 MG tablet Take 1 tablet by mouth daily. 3 Active folic acid (Folvite) 1 MG tablet Take 1 tablet by mouth 1 time each day. 3 Active fluticasone (Flonase) 50 MCG/ACT nasal spray Administer 1 spray into each nostril 2 times a day. 2 Active cholecalciferol (Vitamin D-3) 5,000 Units tablet Take 1 tablet by mouth daily. 3 Active polycarbophil (EQ Fiber Therapy) 625 MG tablet Take 1 tablet by mouth daily. 0 Active budesonide-form oterol (Symbicort) 160-4.5 MCG/ACT inhaler Inhale 2 puffs 2 times a day. 2 Active Linzess 72 MCG capsule capsule Take 1 capsule by mouth daily before breakfast. 4 Active DULoxetine (Cymbalta) [address] capsule [...] 2 tablets by mouth every 6 hours. 5 Active insulin glargine-yfgn 100 UNIT/ML injection vial Inject 10 Units under the skin nightly. 5 Active Additional Information Patient not taking.Reported on 08/20/2025 insulin lispro (Admelog) 100 UNIT/ML injection Inject 0-5 Units under the skin 3 times a day with meals. See After Visit Summary for instructions on how to take your insulin. 5 Active Additional Information Patient not taking.Reported on 08/20/2025 insulin lispro (Admelog) 100 UNIT/ML injection Inject 0-3 Units under the skin 2 times a night. See After Visit Summary for instructions on how to take your insulin. 5 Active Additional Information Patient not taking.Reported on 08/20/2025 methocarbamol (Robaxin) 750 MG tablet Take 1 tablet by mouth 3 times a day. 5 Active oxyCODONE (Roxicodone) 10 MG immediate release tablet Take 1 tablet by mouth every 6 hours as needed for severe pain. 5 Active Additional Information Patient not taking.Reported on 08/20/2025 naloxone (Narcan) 4 mg/0.1 mL nasal spray 1. Give 1 spray in nostril for no/slow breathing or cannot wake after opioid use 2. Call 911 3. Repeat in other nostril if symptoms continue 1 each 5 Active oxyCODONE (Roxicodone) 5 MG immediate release tablet Take 1 tablet by mouth Q MWF. 5 Active Additional Information Patient not taking.Reported on 08/20/2025 polyethylene glycol (Miralax) 17 g packet Take 17 g by mouth daily. Active senna-docusate (Leann-Colace) 8.6-50 MG tablet Take 1 tablet by mouth 2 times a day. Active Nutritional Supplements (Jose) pack Take 1 Package by mouth 2 times a day with meals. Active oxybutynin XL (Ditropan-XL) 10 MG 24 hr tabletIndicatio ns:Bladder spasms Take 1 tablet by mouth daily. Do not crush, chew, or split. 30 tablet 11 5 08/09/20 26 Active Active Problems Problem Noted Date Diagnosed Date Hypoxia 07/16/2025 Overview (07/16/2025): On 6 L NC, smoker Postoperative pain 07/13/2025 Assessment & Plan (07/19/2025 7:08 AM EDT): [facility] Assessment & Plan (07/18/2025 7:05 AM EDT): [facility] Assessment & Plan (07/17/2025 10:21 AM EDT): [facility] Assessment & Plan (07/16/2025 6:52 AM EDT): [facility] Assessment & Plan (07/15/2025 7:15 AM EDT): [facility] Assessment & Plan (07/14/2025 7:31 AM EDT): [facility] Assessment & Plan (07/13/2025 12:36 PM EDT): [facility] JOSEP (obstructive sleep apnea) 07/11/2025 Overview (07/11/2025): [...] of care Type 2 diabetes mellitus 02/15/2022 Overview (08/31/2023): [...] Encounters Date Type Department Care Team Description 08/20/2025 10:30 AM EDT Office Visit [facility] General Surgery [address], [address] [place] [phone] Lilliana Morfin APRN Hidradenitis suppurativa (Primary Dx); Soft tissue infection 08/20/2025 Travel 08/19/2025 Travel 08/12/2025 Orders Only [facility] General Surgery [address], [address] [place] [phone] Ninfa Tam RN Necrotizing fasciitis (CMS/HCC) (Primary Dx) 08/09/2025 Orders Only [facility] Urology [address] [place] [phone] Marj Matamoros APRN Bladder spasms (Primary Dx) 08/03/2025 5:34 PM EDT - 08/03/2025 9:28 PM EDT Emergency [facility] [address] [place] [address] Luis Cotto MD Necrotizing fasciitis (CMS/HCC) (Primary Dx); Encounter for management of wound VAC Discharge Disposition: Home or Self Care 08/03/2025 Travel 08/02/2025 Telephone [facility] Urology [address] [place] [phone] Marj Matamoros APRN HCN Clinical Concern/Question 07/22/2025 Travel 07/17/2025 Travel 07/16/2025 Travel 07/14/2025 2:41 PM EDT Anesthesia Event [facility] [address] [place] [phone] Azul Eisenberg, KING, Lynnette Montoya, 07/14/2025 2:05 PM EDT - 07/14/2025 4:05 PM EDT Surgery [facility] [address] [place] [phone] Anne Franco MD Debridement, partial closure of right groin wound 07/12/2025 Travel 07/11/2025 2:12 PM EDT Anesthesia Event [facility] [address] [place] [phone] Eddie Fulton MD Gambrel, Shira G, MD 07/11/2025 1:50 PM EDT - 07/11/2025 3:20 PM EDT Surgery [facility] [address] [place] [phone] Dorcas Hennessy MD APPLICATION OR REPLACEMENT, WOUND VAC 07/10/2025 3:16 PM EDT Anesthesia Event [facility] [address] [place] [phone] Jason Douglas DO Gibson, Corinne E, MD 07/10/2025 11:35 AM EDT - 07/10/2025 1:45 PM EDT Surgery [facility] [address] [place], [place] [phone] Dorcas Hennessy MD DEBRIDEMENT, WOUND groin 07/10/2025 Travel 07/09/2025 Travel 07/08/2025 8:09 PM EDT Anesthesia Event [facility] [address] [place] [phone] Yadi Goel MD Johnson, Chandler B, MD 07/08/2025 8:00 PM EDT - 07/08/2025 9:30 PM EDT Surgery [facility] [address] [place] [phone] Brittany Crawford MD IRRIGATION AND DEBRIDEMENT, WOUND [[id number] (CPT )] 07/08/2025 5:58 PM EDT - 07/19/2025 12:56 PM EDT Hospital Encounter [facility] Inpatient [address] [place] [phone] Kyle Mckinney MD Rodriguez, Rachel D, MD [...] Family History Medical History Relation Name Comments Cancer Father Lung cancer Lung cancer Father Lung cancer COPD Mother Lung, kidney, chf Cancer Mother Lung, kidney, chf Diabetes Mother Lung, kidney, chf Heart disease Mother Lung, kidney, chf Heart failure Mother Lung, kidney, chf Hyperlipidemia Mother Lung, kidney, chf Hypertension Mother Lung, kidney, chf Kidney cancer Mother Lung, kidney, chf enlarge liver Mother Lung, kidney, chf Cancer Mother's Brother Lung cancer Relation Name Status Comments Father Lung cancer Mother Lung, kidney, chf Mother's Brother Lung cancer Social History Tobacco Use Types Packs/Day Years [...] any time in the past 12 m [facility], were you homeless or living in a long-term (including now)? No 07/15/2025 [facility] Utilities Answer Date Recorded In the past 12 months has [facility] electric, gas, oil, or water company threatened [...] Mass Index 50.18 08/20/2025 10:22 AM EDT Plan of Treatment Upcoming Encounters Date Type Department Care Team (Late st Contact Info) Description 11/19/2025 8:20 AM EST Office Visit Medical Office Building Urology [address] [facility], [address] [place] [address] Marj Matamoros, FEED MIXER HELPER [address] [facility] [address] [place] [phone] Health Maintenance Due Date Last Done Comments [facility]-Infant/Child/Adol SDOH Screenings 1976 Diabetes: Dental Exam 1986 [facility]-DTaP,Tdap,and Td Vaccines (1 - Tdap) 1995 [facility]-Hepatitis B Vaccines (1 of 3 - 19+ 3-dose series) 1995 [facility]-Pneumococcal Vaccine: Pediatrics (0 to 5 Years) and At-Risk Patients (6 to 49 Years) (1 of 2 - PCV) 1995 CT Colonography 2021 Colonoscopy 2021 FIT-DNA 2021 FIT 2021 FOBT 2021 Sigmoidoscopy 2021 [facility]-Colorectal Cancer Screening 2021 [facility]-Depression Screening 02/28/2025 02/29/2024, 08/08 [id number] Vaccine (1 - season) 2025 [facility]-Influenza Vaccine (#1) 2025 10/11/2024 [facility]-Diabetes: Hemoglobin A1C 10/08/2025 07/09/2025 [facility]- SDOH Screenings 01/12/2026 [facility]-Adult SDOH Screenings 01/12/2026 07/15/2025 [facility]-Zoster Vaccines (1 of 2) 2026 [facility]-HIV Screening Completed 07/08/2025 [facility]-Hepatitis C Screening Completed 07/08/2025 [facility]-Obesity Intervention Completed 025, 07/08/2025, 02/29/2024, Additional history exists HPV Vaccines Aged Out No longer eligi [...] ANESTHESIA PLACEHOLDER Routine 07/14/2025 2:53 PM EDT [place] AN ELECTIVE ENDOTRACHEAL AIRWAY Routine 07/14/2025 2:53 [...] ANESTHESIA PLACEHOLDER Routine 07/11/2025 2:23 PM EDT TN AN ELECTIVE ENDOTRACHEAL AIRWAY Routine 07/11/2025 2:23 [...] 07/09/2025 7:15 AM EDT Necrotizing fasciitis ([facility]) Morbid (severe) obesity due to excess calories ([facility]) Septic shock ([facility]) Acute respiratory failure with hypoxia POCT [...] PROCEDURE PLACEHOLDER Routine 07/08/2025 8:37 PM EDT TN AN CENTRAL LINE TRIPLE LUMEN Routine 07/08/2025 8:37 PM EDT PB ANESTHESIA PLACEHOLDER Routine 07/08/2025 8:28 PM EDT TN AN ELECTIVE ENDOTRACHEAL AIRWAY Routine 07/08/2025 8:28 PM EDT ANESTHESIA ARTERIAL LINE PLACEMENT Routine 07/08/2025 8:22 PM EDT TN DEBRIDEMENT, SKIN, SUB-Q TISSUE,=<20 SQ CM 07/08/2025 [...] result, infection, nerve damage and incomplete drainage [place] protocol: Patient identity confirmed: Verbally with patient [...] 07/19/2025 5:32 PM EDT [facility] Forest Ranger ID Laura Baez 025 5:32 PM EDT [facility] Device ID [id number] 07/19/2025 5:32 PM EDT [facility] Specimen Type POC Capillary 07/19/2025 5:32 PM EDT [facility] Blood Capillary blood specimen / Unknown 07/19/2025 12:27 PM EDT 07/19/2025 5:32 PM EDT us Anne Franco MD LAB POINT OF CARE TEST DOCKED DEVICE UNSOLICITED RESULTS Final Result [facility] [address] [place] [id number] * (ABNORMAL) CBC W/O Differential (07/19/2025 4:28 AM EDT) Only the most recent of11 resultswithin the time period is included. WBC Count 18.39(H) 3.70 - 10.30 10*3/uL LAB HEMATOLOGY METHOD 07/19/2025 4:51 AM EDT [facility] RBC Count 3.50(L) 3.90 - 5.20 10*6/uL LAB HEMATOLOGY METHOD 07/19/2025 4:51 AM EDT [facility] HGB 9.6(L) 11.2 - 15.7 g/dL LAB HEMATOLOGY METHOD 07/19/2025 4:51 AM EDT [facility] HCT 30.7(L) 34.0 - 45.0 % LAB HEMATOLOGY METHOD 07/19/2025 4:51 AM EDT [facility] Platelet Count 627(H) 155 - 369 10*3/uL LAB HEMATOLOGY METHOD 07/19/2025 4:51 AM EDT [facility] MCV 88 79 - 98 fL LAB HEMATOLOGY METHOD 07/19/2025 4:51 AM EDT [facility] MCH 27.4 26.0 - 32.0 pg LAB HEMATOLOGY METHOD 07/19/2025 4:51 AM EDT [facility] MCHC 31.3 30.7 - 35.5 g/dL LAB HEMATOLOGY METHOD 07/19/2025 4:51 AM EDT [facility] RDW 18.2(H) 11.5 - 14.5 % LAB HEMATOLOGY METHOD 07/19/2025 4:51 AM EDT [facility] MPV 10.2 8.8 - 12.5 fL LAB HEMATOLOGY METHOD 07/19/2025 4:51 AM EDT [facility] nRBC 0.1(H) <=0.0 per 100 WBCs LAB HEMATOLOGY METHOD 07/19/2025 4:51 AM EDT [facility] Blood Venous blood specimen / Unknown Venipuncture / Unknown 07/19/2025 4:28 AM EDT 07/19/2025 4:36 AM EDT us Anne Franco MD LAB BLOOD ORDERABLES Sarah l Result Performing Organization Address City/[facility]/ZIP Co de Phone Number [facility] [address] [place] [address] * Phosphorus (07/19/2025 4:28 AM EDT) Only the most recent of12 resultswithin the time period is included. Phosphorus, Plasma 3.6 2.5 - 4.5 mg/dL 07/19/2025 5:03 AM EDT [facility] Blood Venous blood specimen / Unknown Venipuncture / Unknown 07/19/2025 4:28 AM EDT 07/19/2025 4:35 AM EDT Anne Franco MD LAB BLOOD ORDERABLES Sarah l Result Performing Organization Address [facility] Co de Phone Number [facility] [address] [place] [address] * (ABNORMAL) Magnesium (07/19/2025 4:28 AM EDT) Only the most recent of12 resultswithin the time period is included. Magnesium, Plasma 1.8(L) 1.9 - 2.4 mg/dL 07/19/2025 5:03 AM EDT [facility] Blood Venous blood specimen / Unknown Venipuncture / Unknown 07/19/2025 4:28 AM EDT 07/19/2025 4:35 AM EDT Anne Franco MD LAB BLOOD ORDERABLES Sarah l Result Performing Organization Address City/[facility]/ZIP Co de Phone Number [facility] [address] [place] [address] * (ABNORMAL) Basic metabolic panel (07/19/2025 4:28 AM EDT) Only the most recent of13 resultswithin the time period is included. Glucose, Plasma 153(H) 74 - 99 mg/dL 07/19/2025 5:03 AM EDT [facility] BUN, Plasma 14 7 - 21 mg/dL 07/19/2025 5:03 AM EDT [facility] Creatinine, Plasma 0.73 0.60 - 1.10 mg/dL 07/19/2025 5:03 AM EDT [facility] BUN/Creatinine Ratio 19 07/19/2025 5:03 AM EDT [facility] Sodium, Plasma 137 136 - 145 mmol/L 07/19/2025 5:03 AM EDT [facility] Potassium, Plasma 4.3 3.6 - 4.9 mmol/L 07/19/2025 5:03 AM EDT [facility] Chloride, Plasma 97 97 - 107 mmol/L 07/19/2025 5:03 AM EDT [facility] CO2, Plasma 28 22 - 29 mmol/L 07/19/2025 5:03 AM EDT [facility] Anion Gap 12 6 - 16 mmol/L 07/19/2025 5:03 AM EDT [facility] Total Calcium, Plasma 9.0 8.9 - 10.2 mg/dL 07/19/2025 5:03 AM EDT [facility] eGFRcr 101.0 mL/min/1.7 3m*2 07/19/2025 5:03 AM EDT [facility] Comment:Reported eGFRcr in m L/min/1.73m2 is based the CKD-EPI 2020 equation that does not use a race coefficient. Blood Venous blood specimen / Unknown Venipuncture / Unknown 07/19/2025 4:28 AM EDT 07/19/2025 4:35 AM EDT us Anne Franco MD LAB BLOOD ORDERABLES Sarah l Result [facility] [address] [place] [address] * PERIPHERAL IV (SMARTFORM LINK) (07/17/2025 5:14 [...] Detected Not Detected 07/17/2025 12:11 PM EDT [facility] Swab Both anterior nares / Unknown Non-blood Collection / Unknown 07/17/2025 10:14 AM EDT 07/17/2025 10:33 AM EDT Narrative [facility] - 07/17/2025 12:11 PM EDT This test is FDA approved for use with nares swab specimens using the eSwabs. This test is used for clinical purposes. It should not be regarded as investigational or for research. This laboratory is certified under the Clinical Laboratory improvement Amendments of 1988 (CLIA-88 as qualified to perform high complexity clinical laboratory testing. Inedrjit AMOS LAB MICROBIOLOGY - GENERAL ORDER LUANNE Final Result [facility] [address] [place] [address] * XR Chest 1 View (07/16/2025 11:25 [...] CV VASCULAR PROCEDURES Fi nal Result * TN AN ELECTIVE ENDOTRACHEAL AIRWAY, PB ANESTHESIA PLACEHOLDER (07/14/2025 2:53 PM EDT) Narrative Azul Eisenberg CRNA, DNP - 07/14/2025 2:53 PM EDT Azul Eisenberg CRNA, DNP 07/14/2025 3:04 PM Airway Date/Time: 07/14/2025 2:53 PM Reason: elective Airway not difficult General Information and Staff Patient location during procedure: [place] GIANT TIRE REPAIRER: Azul Eisenberg CRNA, DNP Performed: GIANT TIRE REPAIRER Patient Condition Indications for airway management: anesthesia [...] mg/dL [facility] Test Strip Lot Number \[id number] 9\ [facility] Test Strip Expiration 09/24/2026 [facility] Blood Venous blood specimen / Unknown 07/11/2025 8:45 PM EDT Dorcas Hennessy MD POINT OF CARE TEST ENTER/EDIT OR DERABLES Final Result [facility] [address] [place] [address] * TN AN ELECTIVE ENDOTRACHEAL AIRWAY, PB ANESTHESIA PLACEHOLDER (07/11/2025 2:23 PM EDT) Narrative Luis Manuel Sharpe CRNA - 07/11/2025 2:23 PM EDT Luis Manuel Shrape CRNA 07/11/2025 2:37 PM Airway Date/Time: 07/11/2025 2:23 PM Reason: elective Airway not difficult General Information and Staff Patient location during procedure: OR GIANT TIRE REPAIRER: Luis Manuel Sharpe CRNA Performed: KING Patient [...] MD ANESTHESIA ORDERABLES Final Res ult * TN CRITICAL CARE, E/M 30-74 MINUTES [...] LAB HEMATOLOGY METHOD 07/10/2025 8:40 PM EDT [facility] pCO2, Arterial 57(H) 35 - 48 mmHg LAB HEMATOLOGY METHOD 07/10/2025 8:40 PM EDT [facility] pO2, Arterial 80(L) 83 - 108 mmHg LAB HEMATOLOGY METHOD 07/10/2025 8:40 PM EDT [facility] SO2, Measured, Arterial 95 94 - 98 % LAB HEMATOLOGY METHOD 07/10/2025 8:40 PM EDT [facility] Base Excess, Arterial 1.1 -2.0 - 3.0 mmol/L LAB HEMATOLOGY METHOD 07/10/2025 8:40 PM EDT [facility] Bicarbonate, Calculated, Arterial 28(H) 22 - 26 mmol/L LAB HEMATOLOGY METHOD 07/10/2025 8:40 PM EDT [facility] Hematocrit, Whole Blood 31.5(L) 34.0 - 45.0 % LAB HEMATOLOGY METHOD 07/10/2025 8:40 PM EDT [facility] Sodium, Whole Blood 138 136 - 145 mmol/L LAB HEMATOLOGY METHOD 07/10/2025 8:40 PM EDT [facility] Potassium, Whole Blood 3.9 3.6 - 4.9 mmol/L LAB HEMATOLOGY METHOD 07/10/2025 8:40 PM EDT [facility] Chloride, Whole Blood 103 97 - 107 mmol/L LAB HEMATOLOGY METHOD 07/10/2025 8:40 PM EDT [facility] Glucose, Whole Blood 206(H) 74 - 99 mg/dL LAB HEMATOLOGY METHOD 07/10/2025 8:40 PM EDT [facility] Ionized Calcium, Whole Blood 5.0 4.6 - 5.1 mg/dL LAB HEMATOLOGY METHOD 07/10/2025 8:40 PM EDT [facility] Lactate, Arterial, Whole Blood 1.7(H) 0.5 - 1.6 mmol/L LAB HEMATOLOGY METHOD 07/10/2025 8:40 PM EDT [facility] Blood Arterial blood specimen / Unknown Arterial Puncture / Unknown 07/10/2025 8:23 PM EDT 07/10/2025 8:35 PM EDT us Brittany Crawford MD LAB BLOOD ORDERABLES Final Result [facility] [address] [place] [address] * XR Abdomen 1 View (07/10/2025 12:03 [...] of the abdomen. COMPARISON: None. FINDINGS: Limited [id number] abdominal radiograph for the purpose of locating tube position. The tip of the nasogastric tube is within the mid stomach. Procedure Note Bernabe Sen MD - 07/10/2025 CLINICAL INDICATION: feeding tube placement TECHNIQUE: Supine radiograph of the abdomen. COMPARISON: None. FINDINGS: Limited [id number] abdominal radiograph for the purpose of locatingtube position. The tip of the nasogastric tube is within the mid stomach. IMPRESSION: The tip of the nasogastric tube is within the mid stomach. CRITICAL RESULT: No. COMMUNICATION: Per this written report. Drafted by Bernabe eSn MD on 07/10/2025 12:32 PM Final report signed by Bernabe Sen MD on 07/10/2025 12:32 PM Brittany Crawford MD IMG XR PROCEDURES Final Re sult * ECG Adult (07/10/2025 8:42 AM EDT) EKG DIAGNOSIS CLASS Abnormal MUSE ECG Ventricular Rate 79 BPM MUSE ECG Atrial Rate 79 BPM MUSE ECG TN Interval 188 ms MUSE ECG QRSD Interval 90 ms MUSE ECG QT Interval 354 ms MUSE ECG QTC Interval 405 ms MUSE ECG P Jasper 44 degrees MUSE ECG R Jasper 17 degrees MUSE ECG T Wave Jasper 27 degrees MUSE ECG Diagnosis Sinus rhythm with frequent premature ventricular complexes MUSE ECG Diagnosis Low voltage QRS MUSE ECG Diagnosis Cannot rule out Anterior infarct , age undetermined MUSE ECG Diagnosis MUSE ECG Diagnosis MUSE ECG Diagnosis Confirmed by Octavio Walsh ([id number]) on 07/10/2025 11:49:20 AM MUSE ECG 07/10/2025 [...] day 5 KAROLINA 07/14/2025 12:02 PM EDT [facility] Blood Structure of antecubital vein / Unknown Venipuncture / Unknown 07/09/2025 10:35 AM EDT 07/09/2025 10:50 AM EDT Kyle Mckinney MD LAB MICROBIOLOGY - GENE RAL ORDERABLES Final Result [facility] [address] [place] [address] * Multi Drug Resistance Test (07/09/2025 9:46 AM EDT) Only the most recent of2 resultswithin the time period is included. Culture No growth at day 1 07/10/2025 11:58 AM EDT [facility] Swab (Nares and Leann Rectal) Non-blood Collection / Unknown 07/09/2025 9:46 AM EDT 07/09/2025 10:09 AM EDT Narrative [facility] - 07/10/2025 11:58 AM [...] LAB MICROBIOLOGY - GENERAL ORDERABLES Final Result [facility] [address] [place] [address] * TN CRITICAL CARE, E/M 30-74 MINUTES [...] 7.5(H) <5.7 % 07/09/2025 12:09 PM EDT [facility] Blood Arterial blood specimen / Unknown Venipuncture / Unknown 07/09/2025 4:57 AM EDT 07/09/2025 5:07 AM EDT Narrative [facility] - 07/09/2025 12:09 PM EDT HA1C Interpretive Data: Diagnosis of Diabetes: Diabetic > or = 6.5% Pre-diabetic 5.7 to 6.4% Non-diabetic < or = 5.6% Glycemic Targets for Type I and Type II Diabetics: Non- Adults <7.0% Adults <6.0% Children and Adolescents <7.5% Source: [place] [employer]. Standards of medical care in diabetes,2017. Diabetes Care.2017:40 (suppl 1):S1-S135. us Dorcas Hennessy MD LAB BLOOD ORDERABLES Final Resul t Performing Organization Address [facility] Co de Phone Number [facility] [address] [place] [address] * APTT (07/08/2025 11:53 PM EDT) aPTT 25 25 - 35 sec LAB COAGULATION METHOD 07/09/2025 12:32 AM EDT [facility] Blood Venous blood specimen / Unknown Venipuncture / Unknown 07/08/2025 11:53 PM EDT 07/08/2025 11:59 PM EDT us Brittany Crawford MD LAB BLOOD ORDERABLES Final Result Performing Organization Address City/[facility] de Phone Number [facility] [address] [place] [address] * (ABNORMAL) Protime-INR (07/08/2025 11:53 PM EDT) Only the most recent of2 resultswithin the time period is included. Prothrombin Time 15.2(H) 12.0 - 14.3 sec LAB COAGULATION METHOD 07/09/2025 12:32 AM EDT [facility] INR 1.2(H) 0.9 - 1.1 LAB COAGULATION METHOD 07/09/2025 12:32 AM EDT [facility] Blood Venous blood specimen / Unknown Venipuncture / Unknown 07/08/2025 11:53 PM EDT 07/08/2025 11:59 PM EDT Narrative [facility] - 07/09/2025 12:32 AM [...] of recurrent MA INR 2.5 to 3.5 Brittany Crawford MD LAB BLOOD ORDERABLES Final Result Performing Organization Address [facility] Co de Phone Number [facility] [address] [place] [address] * Geno auris Surveillance by PCR (07/08/2025 11:50 PM EDT) Geno auris PCR Result Not Detected Not Detected 07/09/2025 11:26 AM EDT [facility] Swab (Axilla and Groin) Non-blood Collection / Unknown 07/08/2025 11:50 PM EDT 07/09/2025 12:17 AM EDT Narrative [facility] - 07/09/2025 11:26 AM EDT This PCR assay was developed and its performance characteristics determined by [facility] as appropriate for clinical purposes. This assay has not been cleared or approved by the FDA, but is performed in a CLIA regulated laboratory that is qualified to perform high-complexity testing. Brittany Crawford MD LAB MICROBIOLOGY - GENERAL ORDERABLES Final Result Performing Organization Address [facility] [place] [address] * (ABNORMAL) Tissue Culture and Gram Stain (07/08/2025 10:48 PM EDT) Culture Light Growth 07/13/2025 1:13 PM EDT [facility] Culture 1+ Schaalia turicensis (formerly known as Actinomyces turicensis)(A) 07/13/2025 1:13 PM EDT [facility] Comment: The organism value for this result has been updated. These results have been appended to the previously preliminary verified report. This is a corrected result. Previous organism was Gram positive anthony on 07/11/2025 at 1052 EDT. Culture 1+ Staphylococcus hominis(A) 07/13/2025 1:13 PM EDT [facility] Comment: This isolate has been identified using the FDA Approved TimeTrade Systemser CA System The organism value for this result has been updated. These results have been appended to the previously preliminary verified report. Gram Stain Result Few Polymorphonuclear leukocytes(A) 07/13/2025 1:13 PM EDT [facility] Gram Stain Result Numerous Gram negative rods(A) 07/13/2025 1:13 PM EDT [facility] Gram Stain Result Few Gram positive cocci in pairs(A) 07/13/2025 1:13 PM EDT [facility] Tissue Topography unknown / Unknown 07/08/2025 10:48 PM EDT 07/09/2025 12:14 AM EDT Comment:Pre-op diagnosis: Necrotizing fasciitis (CMS/HCC) [M72.6] Brittany Crawford MD LAB MICROBIOLOGY - GENERAL ORDERABLES Final Result [facility] [address] [place] [address] * Transfuse fresh frozen plasma (07/08/2025 10:35 PM EDT) Only the most recent of2 resultswithin the time period is included. Richard N Yongkangg GIANT TIRE REPAIRER BLOOD TRANSFUSION ORDERAB LES Final Result * Transfuse RBC (07/08/2025 10:29 PM EDT) Only the most recent of2 resultswithin the time period is included. Richard N Yongkangg GIANT TIRE REPAIRER BLOOD TRANSFUSION ORDERAB LES Final Result * Surgical Pathology Exam (07/08/2025 10:07 PM EDT) Case Report Surgical Pathology Case: [id number] Authorizing Provider: Brittany Crawford MD Collected: 07/08/20252 Ordering Location: [facility] OPERATING ROOM Received: 07/09/2025 5999 Pathologist: Boaz Fernandez MD Specimens: A) - Other (specify site), saphenous vein B) - Other (specify site), right leg 07/10/2025 3:45 PM EDT [facility] Final Diagnosis A. SAPHENOUS VEIN SEGMENT, REMOVAL: - SCLEROTIC VEIN WITH ADVENTITIAL INFLAMMATION. B. RIGHT LEG TISSUE DEBRIDEMENT: - ACUTE NECROTIZING FASCIITIS OF SKIN AND SOFT TISSUE. 07/10/2025 3:45 PM EDT [facility] at 1545 EDT Clinical Information Necrotizing fasciitis; post recent boil self popped wound. 50 y.o. female with PMH of DM, hidradenitis supparativa, current smoker (1.5 ppd), UTI, depression, anxiety, asthma, HLD, Celiac disease, 07/10/2025 3:45 PM EDT [facility] Gross Description A. SAPHENOUS VEIN Specimen is received fresh and placed in formalin labeled saphenous vein. Received is a segment of vessel that measures 8.5 cm in length and up to 0.7 cm in diameter. Specimen is sectioned to reveal a pinpoint lumen with dried blood. Obgyn Hospitalist Physician sections are taken and submitted in cassette A1. Cold Time: 8h 56m Abhishek Baptiste MD B. RIGHT LEG Specimen is received fresh labeled right leg. Received are numerous fragments of skin and underlying soft tissue that measure in aggregate 25.0 x 25.0 x 7.5 cm. Scattered areas of skin and soft tissue notable for being green-black, foul-smelling and extensively necrotic. Obgyn Hospitalist Physician sections are taken and submitted in cassettes B1-B2. Abhishek Baptiste MD 07/10/2025 3:45 PM EDT [facility] Note: A resident was involved in the service. I attest I examined the relevant preparations for the specimens and confirmed the diagnosis or interpretation. 07/10/2025 3:45 PM EDT [facility] Tissue Topography unknown / Unknown 07/08/2025 10:07 PM EDT 07/09/2025 7:40 AM EDT Comment:Pre-op diagnosis: Necrotizing fasciitis (CMS/HCC) [M72.6] Tissue specimen (specimen) Topography unknown / Unknown 07/08/2025 10:49 PM EDT 07/09/2025 7:40 AM EDT Comment:Pre-op diagnosis: Necrotizing fasciitis (CMS/HCC) [M72.6] us Brittany Crawford MD LAB PATHOLOGY ORDERABLES F inal Result [facility] [address] [place] [address] * Prepare Fresh Frozen Plasma: 2 Units (07/08/2025 9:24 PM EDT) Product Code K1600P62 CH BLOO D BANK Dispense Status Transfused CH BLOOD BANK Blood Expiration Date [id number] BLOOD BANK Unit Number [id number] CH B LOOD BANK Product Blood Type 5100 BLOOD BANK Blood Type O+ CH BLOOD BANK Product Code [id number] BLOO D BANK Dispense Status Transfused CH BLOOD BANK Blood Expiration Date [id number] BLOOD BANK Unit Number [id number] CH B LOOD BANK Product Blood Type 5100 BLOOD BANK Blood Type O+ CH BLOOD BANK Blood Venous blood specimen / Unknown Richard Betts GIANT TIRE REPAIRER BLOOD BANK PRODUCT ORDERA BLES Final Result Performing Organization Address [facility] de Phone Number BLOOD BANK [address] [place] [address], [place] * Prepare Leukocyte Reduced RBC: 2 Units (07/08/2025 9:23 PM EDT) Product Code [id number] CH BLOO D BANK Dispense Status Transfused BLOOD BANK Blood Expiration Date [id number] BLOOD BANK Unit Number [id number] CH B LOOD BANK Product Blood Type 5100 BLOOD BANK Blood Type O+ CH BLOOD BANK Crossmatch Compatible BLOOD BANK Product Code [id number] BLOO D BANK Dispense Status Transfused BLOOD BANK Blood Expiration Date [id number] BLOOD BANK Unit Number [id number] CH B LOOD BANK Product Blood Type 5100 BLOOD BANK Blood Type O+ CH BLOOD BANK Crossmatch Compatible BLOOD BANK Other Richard N Yieldrngbang GIANT TIRE REPAIRER BLOOD BANK PRODUCT ORDERA BLES Final Result Performing Organization Address City/[facility]/ZIP Co de Phone Number BLOOD BANK [address] [place] [address], * (ABNORMAL) Abscess Culture and Gram Stain (07/08/2025 9:06 PM EDT) Culture Light Growth 07/13/2025 1:13 PM EDT [facility] Culture 1+ Mixed skin silvestre(A) 07/13/2025 1:13 PM EDT [facility] Comment: The organism value [...] as Actinomyces turicensis)(A) 07/13/2025 1:13 PM EDT [facility] Comment: This result was determined by MALDI tof Mass spectrometry. This assay was developed and its performance characteristics determined by [facility] as appropriate for clinical purposes. [...] Gram positive cocci(A) 07/13/2025 1:13 PM EDT [facility] Gram Stain Result Few Gram variable rods(A) 07/13/2025 1:13 PM EDT [facility] Gram Stain Result Moderate Gram positive rods(A) 07/13/2025 1:13 PM EDT [facility] Gram Stain Result Numerous Gram negative rods(A) 07/13/2025 1:13 PM EDT [facility] Gram Stain Result Numerous Gram negative coccobacilli(A) 07/13/2025 1:13 PM EDT [facility] Gram Stain Result Moderate Polymorphonuclear leukocytes(A) 07/13/2025 1:13 PM EDT [facility] Swab Topography unknown / Unknown 07/08/2025 9:06 PM EDT 07/08/2025 9:15 PM EDT Comment:Pre-op diagnosis: Necrotizing fasciitis (CMS/HCC) [M72.6] us Brittany Crawford MD LAB MICROBIOLOGY - GENERAL ORDERABLES Final Result [facility] [address] [place] [address] * (ABNORMAL) POCT arterial blood gas gem (07/08/2025 8:51 PM EDT) pH, Arterial 7.28(L) 7.35 - 7.45 07/08/2025 8:53 PM EDT [facility] pCO2, Arterial 53(H) 35 - 48 mm Hg 07/08/2025 8:53 PM EDT [facility] pO2, Arterial 152(H) 83 - [...] - 15.7 g/dL 07/08/2025 8:53 PM EDT [facility] Hematocrit, Arterial 33.0(L) 34.0 - 45.0 % 07/08/2025 8:53 PM EDT [facility] Sodium, Arterial 131(L) 136 - 145 mmol/L 07/08/2025 8:53 PM EDT [facility] Potassium, Arterial 3.8 3.6 - 4.9 mmol/L 07/08/2025 8:53 PM EDT [facility] Chloride, Whole Blood 98 97 - 107 mmol/L 07/08/2025 8:53 PM EDT [facility] Glucose, Arterial 418(H) 74 - 99 mg/dL 07/08/2025 8:53 PM EDT [facility] Ionized Calcium, Arterial 4.9 4.6 - 5.1 mg/dL 07/08/2025 8:53 PM EDT [facility] Lactate, Arterial 1.6 0.5 - 1.6 mmol/L 07/08/2025 8:53 PM EDT [facility] Body Temperature 37.0 Celsius 07/08/2025 8:53 PM EDT [facility] pH, Temp Corrected, Arterial 7.28(L) 7.35 - 7.45 07/08/2025 8:53 PM EDT [facility] pCO2, Temp Corrected, Arterial 53(H) 35 - 48 mm Hg 07/08/2025 8:53 PM EDT [facility] pO2, Temp Corrected, Arterial 152(H) 83 - 108 mm Hg 07/08/2025 8:53 PM EDT [facility] Forest Ranger ID Yadi Goel 07/08/2025 8:53 PM EDT [facility] Blood, Arterial Whole blood specimen / Unknown 07/08/2025 8:51 PM EDT 07/08/2025 8:53 PM EDT us Brittany Crawford MD LAB POINT OF CARE TEST DOCKED DEVICE UNSOLICITED RESULTS Final Result Performing Organization Address City/State/[facility] Co de Phone Number [facility]ARE [facility] [address] [place] [address] * [place] AN CENTRAL LINE TRIPLE LUMEN, PB ANESTHESIA [...] MD ANESTHESIA ORDERABLES Final R esult * [place] AN ELECTIVE ENDOTRACHEAL AIRWAY, PB ANESTHESIA PLACEHOLDER (07/08/2025 8:28 PM EDT) Richard Malin CRNA - 07/08/2025 8:28 PM EDT Richard Betts CRNA 07/08/2025 8:39 PM Airway Date/Time: 07/08/2025 8:28 PM Reason: elective Airway not difficult General Information and Staff Patient location during procedure: OR GIANT TIRE REPAIRER: Richard Betts CRNA Performed: GIANT TIRE REPAIRER Patient Condition Indications for airway management: anesthesia [...] 1/2 Differentiation (07/08/2025 6:14 PM EDT) Pathologist [facility] HIV 1 & 2 Antibody/Antigen Screen Non Reactive Non Reactive 07/08/2025 7:12 PM EDT [facility] Comment:Screening for HIV 1 & 2 antibodies, and P24 antigen is NONREACTIVE. No confirmatory testing is required. Blood Venous blood specimen / Unknown Venipuncture / Unknown 07/08/2025 6:14 PM EDT 07/08/2025 6:30 PM EDT Kyle Mckinney MD LAB BLOOD ORDERABLES Fi nal Result Performing Organization Address City/[facility]/ZIP Co de Phone Number [facility] [address] [place] [address] * (ABNORMAL) Lactic acid, venous (07/08/2025 6:14 PM EDT) Pathologist [facility] Lactate, Venous, Whole Blood 2.6(H) 0.5 - 2.2 mmol/L LAB HEMATOLOGY METHOD 07/08/2025 6:29 PM EDT [facility] Blood Venous blood specimen / Unknown Venipuncture / Unknown 07/08/2025 6:14 PM EDT 07/08/2025 6:23 PM EDT Kyle Mckinney MD LAB BLOOD ORDERABLES Fi nal Result Performing Organization Address City/[facility]/ZIP Co de Phone Number [facility] [address] [place] [address] * Hepatitis C Antibody - ED (07/08/2025 6:14 PM EDT) Hepatitis C Antibody Negative Negative 07/08/2025 7:12 PM EDT [facility] Blood Venous blood specimen / Unknown Venipuncture / Unknown 07/08/2025 6:14 PM EDT 07/08/2025 6:30 PM EDT us Kyle Mckinney MD LAB BLOOD ORDERABLES Fi nal Result [facility] [address] [place] [address] * (ABNORMAL) CBC w/diff (07/08/2025 6:14 PM EDT) Pathologist [facility] WBC Count 26.15(H) 3.70 - 10.30 10*3/uL LAB HEMATOLOGY METHOD 07/08/2025 9:04 PM EDT [facility] RBC Count 3.97 3.90 - 5.20 10*6/uL LAB HEMATOLOGY METHOD 07/08/2025 9:04 PM EDT [facility] HGB 10.9(L) 11.2 - 15.7 g/dL LAB HEMATOLOGY METHOD 07/08/2025 9:04 PM EDT [facility] HCT 33.6(L) 34.0 - 45.0 % LAB HEMATOLOGY METHOD 07/08/2025 9:04 PM EDT [facility] Platelet Count 329 155 - 369 10*3/uL LAB HEMATOLOGY METHOD 07/08/2025 9:04 PM EDT [facility] MCV 85 79 - 98 fL LAB HEMATOLOGY METHOD 07/08/2025 9:04 PM EDT [facility] MCH 27.5 26.0 - 32.0 pg LAB HEMATOLOGY METHOD 07/08/2025 9:04 PM EDT [facility] MCHC 32.4 30.7 - 35.5 g/dL LAB HEMATOLOGY METHOD 07/08/2025 9:04 PM EDT [facility] RDW 17.3(H) 11.5 - 14.5 % LAB HEMATOLOGY METHOD 07/08/2025 9:04 PM EDT [facility] MPV 10.1 8.8 - 12.5 fL LAB HEMATOLOGY METHOD 07/08/2025 9:04 PM EDT [facility] nRBC 0.0 <=0.0 per 100 WBCs LAB HEMATOLOGY METHOD 07/08/2025 9:04 PM EDT [facility] Differential Type Automated LAB HEMATOLOGY METHOD 07/08/2025 9:04 PM EDT [facility] Neutrophils % 91 % LAB HEMATOLOGY METHOD 07/08/2025 9:04 PM EDT [facility] Lymphocytes % 4 % LAB HEMATOLOGY METHOD 07/08/2025 9:04 PM EDT [facility] Monocytes % 4 % LAB HEMATOLOGY METHOD 07/08/2025 9:04 PM EDT [facility] Eosinophils % 0 % LAB HEMATOLOGY METHOD 07/08/2025 9:04 PM EDT [facility] Basophils % 0 % LAB HEMATOLOGY METHOD 07/08/2025 9:04 PM EDT [facility] Immature Granulocytes % 1 % LAB HEMATOLOGY METHOD 07/08/2025 9:04 PM EDT [facility] Neutrophils Absolute 23.61(H) 1.60 - 6.10 10*3/uL LAB HEMATOLOGY METHOD 07/08/2025 9:04 PM EDT [facility] Lymphocytes Absolute 1.15(L) 1.20 - 3.90 10*3/uL LAB HEMATOLOGY METHOD 07/08/2025 9:04 PM EDT [facility] Monocytes Absolute 0.98(H) 0.30 - 0.90 10*3/uL LAB HEMATOLOGY METHOD 07/08/2025 9:04 PM EDT [facility] Eosinophils Absolute 0.04 0.00 - 0.50 10*3/uL LAB HEMATOLOGY METHOD 07/08/2025 9:04 PM EDT [facility] Basophils Absolute 0.09 0.00 - 0.10 10*3/uL LAB HEMATOLOGY METHOD 07/08/2025 9:04 PM EDT [facility] Immature Granulocytes Absolute 0.25(H) 0.00 - 0.06 10*3/uL LAB HEMATOLOGY METHOD 07/08/2025 9:04 PM EDT [facility] Blood Venous blood specimen / Unknown Venipuncture / Unknown 07/08/2025 6:14 PM EDT 07/08/2025 6:23 PM EDT Narrative [facility] - 07/08/2025 9:04 PM EDT Therapeutic decision making should be based on absolute values, rather than percentages. Kyle Mckinney MD LAB BLOOD ORDERABLES Fi nal Result Performing Organization Address City/[facility]/ZIP Co de Phone Number [facility] [address] [place] [address] * Type and screen (07/08/2025 6:14 PM [...] ORD ERABLES Final Result Performing Organization Address [facility] de Phone Number BLOOD BANK [address] [place] [address], * (ABNORMAL) C-Reactive protein (07/08/2025 6:14 PM EDT) Pathologist [facility] CRP, Plasma 462.2(H) <=8.0 mg/L 07/08/2025 7:18 PM EDT [facility] Blood Venous blood specimen / Unknown Venipuncture / Unknown 07/08/2025 6:14 PM EDT 07/08/2025 6:23 PM EDT Narrative [facility] - 07/08/2025 7:18 PM EDT This CRP test is appropriate for assessment of infection, systemic inflammation and/or tissue injury. To assess cardiovascular disease risk order high sensitivity CRP (CRPH). Kyle Mckinney MD LAB BLOOD ORDERABLES Fi nal Result [facility] [address] [place] [address] * (ABNORMAL) CMP (07/08/2025 6:14 PM EDT) Glucose, Plasma 411(H) 74 - 99 mg/dL 07/08/2025 7:18 PM EDT [facility] BUN, Plasma 33(H) 7 - 21 mg/dL 07/08/2025 7:18 PM EDT [facility] Creatinine, Plasma 1.99(H) 0.60 - 1.10 mg/dL 07/08/2025 7:18 PM EDT [facility] BUN/Creatinine Ratio 17 07/08/2025 7:18 PM EDT [facility] Sodium, Plasma 131(L) 136 - 145 mmol/L 07/08/2025 7:18 PM EDT [facility] Potassium, Plasma 4.0 3.6 - 4.9 mmol/L 07/08/2025 7:18 PM EDT [facility] Chloride, Plasma 93(L) 97 - 107 mmol/L 07/08/2025 7:18 PM EDT [facility] CO2, Plasma 22 22 - 29 mmol/L 07/08/2025 7:18 PM EDT [facility] Anion Gap 16 6 - 16 mmol/L 07/08/2025 7:18 PM EDT [facility] Total Calcium, Plasma 9.3 8.9 - 10.2 mg/dL 07/08/2025 7:18 PM EDT [facility] Total Protein 6.0(L) 6.3 - 7.9 g/dL 07/08/2025 7:18 PM EDT [facility] Albumin, Plasma 2.6(L) 3.5 - 5.2 g/dL 07/08/2025 7:18 PM EDT [facility] AST, Plasma 16 10 - 35 U/L 07/08/2025 7:18 PM EDT [facility] ALT, Plasma 15 10 - 35 U/L 07/08/2025 7:18 PM EDT [facility] Alkaline Phosphatase, Plasma 165(H) 35 - 104 U/L 07/08/2025 7:18 PM EDT [facility] Total Bilirubin, Plasma 0.4 0.2 - 1.1 mg/dL 07/08/2025 7:18 PM EDT [facility] eGFRcr 30.3 mL/min/1.7 3m*2 07/08/2025 7:18 PM EDT [facility] Comment:Reported eGFRcr in m L/min/1.73m2 is based the CKD-EPI 2020 equation that does not use a race coefficient. Blood Venous blood specimen / Unknown Venipuncture / Unknown 07/08/2025 6:14 PM EDT 07/08/2025 6:23 PM EDT us Kyle Mckinney MD LAB BLOOD ORDERABLES Fi nal Result [facility] [address] [place] [address] * [place] CRITICAL CARE, E/M 30-74 MINUTES [...] from Last 3 Months Insurance Care Teams Office Machine Inspector Relationship Specialty Start Date End Date Yenny Dhillon APRN [address] [place] [address] PCP - General 07/22/23
--- OUTSIDE RECORDS SUMMARY | 2025-08-20 21:20 | XMS_ITS | Encounter Summary ---
Author Organization Healthcare Address [address] [place] [address] Care Team Providers Care Cafeteria Director Name Role Phone Yenny Dhillon APRN Primary Care Provider [phone] Encounter Details Date Type Department Care Team [...] time in the past 12 m [facility], were you homeless or living in a correction (including now)? No 07/15/2025 [facility] Utilities Answer Date Recorded In the [...] Visit Medical Office Building Urology [address] [facility], [address] [place] [address] Marj Matamoros, ETHNOARCHAEOLOGY PROFESSOR [address] [place] [address] documented as of this encounter [...] documented as of this encounter Care Teams Cafeteria Director Relationship Specialty Start Date End Date Yenny Dhillon APRN [address] [place] [address] PCP - General 07/22/23 documented as of this encounter
--- OUTSIDE RECORDS SUMMARY | 2025-08-20 21:20 | XMS_ITS | Encounter Summary ---
Author Organization Healthcare Address [address] [place] [address] Care Team Providers Care Web Designer Name Role Phone Yenny Dhillon APRN Primary Care Provider [phone] Encounter Details Date Type Department Care Team [...] time in the past 12 m [facility], were you homeless or living in a jail (including now)? No 07/15/2025 [facility] Utilities Answer Date Recorded In the past [...] [facility], [address] [place] [address] Marj Matamoros APRN [address] [facility] [address] [place] [address] documented as of this encounter [...] as of this encounter Care Teams Web Designer Relationship Specialty Start Date End Date Yenny Dhillon APRN [address] [place] [address] PCP - General 07/22/23 documented as of this encounter
--- OUTSIDE RECORDS SUMMARY | 2025-08-20 21:21 | XMS_ITS | Encounter Summary ---
Author Organization [employer] ([place], [place], [place], [place]) Address [address] [place] [address] Care Team Providers Care Diesel Tractor Operator Name Role Phone Alejo Yenny GLORIA Primary Care Provider [phone] Encounter Details Date Type Department Care Team (Latest Contact Info) Description 08/05/2025 Travel Social History Tobacco Use Types Packs/Day [...] on file 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 LITHOGRAPH DESIGNER Gender Identity Not on file Sexual Orientation Not on file documented as of this encounter Plan of Treatment Upcoming Encounters Date Type Department Care Team (Late st Contact Info) Description 08/21/2025 3:30 PM EDT Clinical Support [facility] [address] [place] [address] 08/23/2025 3:30 PM EDT Clinical Support [facility] [address] [place] [id number] documented as of this encounter Visit Diagnoses Not on filedocumented in this encounter Care Teams Diesel Tractor Operator Relationship Specialty Start Date End Date Yenny Dhillon APRN [address] [place] [address] PCP - General Nurse Practitioner 03/13/24 documented as of this encounter
--- OUTSIDE RECORDS SUMMARY | 2025-08-20 21:21 | XMS_ITS | Clinical Summary ---
Author Organization [facility] Address [address] [place] [address] Phone Care Team Providers Care Electric Wheelchair Repairer Name Role Phone Unavailable Primary Care Provider [...] skin) 0.25 mg once a week. Active xazokkcz-idxi-i az3-X-gwzw-bosw (OSTEO BI-FLEX TRIPLE STRENGTH) 750 mg-644 mg- 30 mg-1 mg Oral Tablet Take 1 Tablet by mouth 2 times daily. Active docusate sodium (COLACE) 100 mg Oral Capsule Take 200 mg by mouth daily. Active budesonide-form oteroL (SYMBICORT) 160-4.5 mcg/actuation Inhl HFA Aerosol Inhaler Inhale 2 Puffs into the lungs 2 times daily. Active fluticasone propionate (FLONASE) 50 mcg/actuation Nasl [place], Suspension 2 Sprays by Nasal route 2 [...] - 145 mmol/L 06/09/2023 6:37 AM EDT [facility] Potassium 3.9 3.5 - 5.0 mmol/L 06/09/2023 6:37 AM EDT [facility] Chloride 98 98 - 107 mmol/L 06/09/2023 6:37 AM EDT [facility] Total CO2 27 22 - 29 mmol/L 06/09/2023 6:37 AM EDT [facility] Anion Gap 12 7 - 16 mmol/L 06/09/2023 6:37 AM EDT [facility] Calcium 10.0 8.6 - 10.4 mg/dL 06/09/2023 6:37 AM EDT [facility] Glucose Lvl 116(H) 74 - 100 mg/dL 06/09/2023 6:37 AM EDT [facility] BUN 33(H) 6 - 20 mg/dL 06/09/2023 6:37 AM EDT [facility] Creatinine 1.57(H) 0.51 - 1.30 mg/dL 06/09/2023 6:37 AM EDT [facility] eGFR (CKD-EPIcr 2020) 40(L) >=60 mL/min/1.7 3 m2 06/09/2023 6:37 AM EDT [facility] Comment:Estimated GFR was ca lculated using the CKD-EPIcr (2020) equation refit without race. The equation is recommended by the National Kid[employer] Foundation - [place] [employer] of Nephrology Task Force. Blood VENOUS BLOOD / Unknown Venipuncture / Unknown 06/09/2023 5:45 AM EDT 06/09/2023 6:13 AM EDT us Sakshi Bolton SCIENTIFIC DIRECTOR CHEMISTRY ORDERABLES Fi nal Result [facility] [address] [place] [address] from Last 3 Months or Most Recently Relevant to Health [place] [address] [place] [address] Advance Directives For more information, please contact: [phone] * Full Code (Latest Code Status on File) Date Activated Date Inactivated Comments 06/09/2023 3:43 AM 06/09/2023 11:28 PM
--- OUTSIDE RECORDS SUMMARY | 2025-08-20 21:21 | XMS_ITS | Encounter Summary ---
Author Organization [employer] ([place], [place], [place], [place] Address [address] [place] [address] Care Team Providers Care Rn Community Name Role Phone Yenny Dhillon APRN Primary Care Provider [phone] Encounter Details Date Type Department Care Team (Late Contact Info) Description 07/30/2025 Outside Orders [facility] [address] [place] [address] Madeline Lara, GROUND SUPPORT EQUIPMENT FITTER [address] [facility] [address] [place] [address] Social History Tobacco Use Types Packs/Day Years [...] Date Franko rded Speak language other than Barbadian at home Not on file 12/23/2023 Want help with school or training Not on file 12/23/2023 Substance Use Answer Date Recorded Used prescription meds for non-medical reasons N ot on file 12/23/2023 Used illegal drugs past 12 months Not on file 12/23/2023 Comments Unknown Sex and Gender Information Value Date Recorded Sex Assigned at Not on file 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 MEDICAL RECORDS DIRECTOR Gender Identity Not on file Sexual Orientation Not on file documented as of this encounter Plan of Treatment Upcoming Encounters Date Type Department Care Team (Late Contact Info) Description 08/21/2025 3:30 PM EDT Clinical Support [facility] Wound [facility] [address] [place] [address] 08/23/2025 3:30 PM EDT Clinical Support [facility] Wound [facility] [address] [place] [address] documented as of this encounter Visit Diagnoses Not on filedocumented in this encounter Care Teams Rn Community Relationship Specialty Start Date End Date Yenny Dhillon, GROUND SUPPORT EQUIPMENT FITTER [address] [place] [address] PCP - General Nurse Practitioner 03/13/24 documented as of this encounter
--- OUTSIDE RECORDS SUMMARY | 2025-08-20 21:22 | XMS_ITS | Encounter Summary ---
Author Organization Healthcare Address [address] [place] [address] Care Team Providers Care Production Manager Name Role Phone Yenny Dhillon APRN Primary Care Provider [phone] Encounter Details Date Type Department Care Team [...] time in the past [address] [facility], were you homeless or living in a chcf (including now)? No 07/15/2025 [facility] Utilities Answer Date Recorded In the past 12 months has th e electric, gas, oil, or water [employer] threatened to shut off services in your [...] Medical Office Building Urology [address] [facility], [address] [place] [address] Marj Matamoros APRN [address] [place] [address] documented as of this encounter [...] documented as of this encounter Care Teams Production Manager Relationship Specialty Start Date End Date Yenny Dhillon APRN [address] [place] [address] PCP - General 07/22/23 documented as of this encounter
--- OUTSIDE RECORDS SUMMARY | 2025-08-20 21:25 | XMS_ITS | Encounter Summary ---
Author Organization Healthcare Address [address] [place] [address] Care Team Providers Care Computer Numerical Control Operator Name Role Phone DhillonYenny jones Lit CASTRO Primary Care Provider [phone] Encounter Details Date Type Department Care Team [...] Urology [address] [facility], [address] [place] [address] Marj Matamoros, LEAD BLENDER [address] [facility] [address] [place] [address] documented as of this encounter [...] documented as of this encounter Care Teams Computer Numerical Control Operator Relationship Specialty Start Date End Date Yenny Dhillon APRN [address] [place] [address] PCP - General 07/22/23 documented as of this encounter
--- OUTSIDE RECORDS SUMMARY | 2025-08-20 21:25 | XMS_ITS | Encounter Summary ---
Author Organization Healthcare Address [address] [place] [address] Care Team Providers Care Crochet Machine Operator Name Role Phone Yenny Dhillon APRN Primary Care Provider [phone] Encounter Details Date Type Department Care Team [...] any time in the past 12 m [facility], were you homeless or living in a [facility] (including now)? No 07/13/2025 [facility] Utilities Answer Date Recorded In the [...] Office Building Urology [address] [facility], [address] [place] [address] Marj Matamoros, INDUSTRIAL RELATIONS MANAGER [address] [facility] [address] [place] [address] documented as of this encounter [...] documented as of this encounter Care Teams Crochet Machine Operator Relationship Specialty Start Date End Date Yenny Dhillon APRN [address] [place] [address] PCP - General 07/22/23 documented as of this encounter
--- OUTSIDE RECORDS SUMMARY | 2025-08-20 21:26 | XMS_ITS | Referral Summary ---
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) (Primary Dx); Localized tissue (HCC); Other specified local infections of the skin and subcutaneous tissue; Diabetes mellitus with skin ulcer (HCC); 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 08/16/2025 Travel 08/16/2025 Telephone [facility] [address] [address] Sukhdev Bazan Jr., MD Appointment 08/16/2025 1:30 PM EDT Clinical Support [address] [phone] Sukhdev Bazan Jr., MD 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) 08/14/2025 3:00 PM EDT Clinical Support [address] [phone] Sukhdev Bazan Jr., MD Localized tissue (HCC) (Primary Dx); 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); Other specified local infections of the skin and subcutaneous tissue; Diabetes mellitus with skin ulcer (HCC); 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 08/12/2025 Travel 08/12/2025 11:00 AM EDT Office Visit [facility] [address] [phone] Sukhdev Bazan Jr., MD 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) (Primary Dx); Localized tissue (HCC); Other specified local infections of the skin and subcutaneous tissue; Diabetes mellitus with skin ulcer (HCC) 08/09/2025 Travel 08/09/2025 10:45 AM EDT Clinical Support [facility] [place] [phone] Sukhdev Bazan Jr., MD 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) 08/07/2025 Travel 08/07/2025 1:00 PM EDT Clinical Support [place] [phone] Sukhdev Bazan Jr., MD 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) (Primary Dx) 08/05/2025 Travel 08/05/2025 1:10 PM EDT Office Visit [address] [phone] Sukhdev Bazan Jr., MD 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) (Primary Dx); Localized tissue (HCC); Other specified local infections of the skin and subcutaneous tissue; Diabetes mellitus with skin ulcer (HCC) 07/30/2025 Outside Orders [facility] [place] [address] [place] [address] Madeline Lara, GLORIA from Last 3 Months Allergies Active Allergy Reactions Criticality Noted Date Comments Alprazolam Rash,Other (See Comments) High 07/21/2015 Other reaction(s): Agitated Aspirin Hives,Rash High 03/19/2015 Bupropion Anaphylaxis,Rash High 06/08/2023 Diazepam Rash,Hives High 06/09/2023 Makes her mean Makes her mean Doxycycline Hives,Rash High 03/19/2015 Penicillins Hives,Rash High 07/22/1983 Medications * This document contains information received from the source organization and may not represent a complete record from that organization. azelastine (ASTELIN) 137 mcg (0.1 %) nasal spray SMARTSIG:Both Nares 01/09/20 24 Active budesonide-form oteroL (SYMBICORT) 160-4.5 mcg/actuation inhaler Inhale 2 puffs by mouth. Active busPIRone (BUSPAR) 15 MG tablet Take 1 tablet (15 mg total) by mouth 3 (three) times daily as needed. 03/14/20 24 Active Cymbalta 60 mg capsule Take 1 capsule (60 mg total) by mouth daily. 03/14/20 24 Active fluticasone propionate (FLONASE) 50 mcg/actuation nasal spray Administer 2 sprays into affected nostril(s). Active folic acid (FOLVITE) 1 MG tablet Take 1 tablet (1,000 mcg total) by mouth daily. 03/19/20 24 Active mvdocyti-pasi-d yw4-P-qzew-bosw (Osteo Bi-Flex Triple Strength) 750 mg-644 mg- 30 mg-1 mg Tab Take 1 tablet by mouth 2 (two) times daily. Active Linzess 72 mcg Cap Take 1 capsule (72 mcg total) by mouth every morning. 03/26/20 24 Active loratadine (CLARITIN) 10 mg tablet Take 1 tablet (10 mg total) by mouth daily. 12/30/19 24 Active metFORMIN (GLUCOPHAGE) 500 MG tablet SMARTSI Tablet(s) By Mouth Morning-Evening 01/03/20 24 Active Myrbetriq 25 mg Tb24 ER tablet Take 1 tablet (25 mg total) by mouth daily. 03/19/20 24 Active montelukast (SINGULAIR) 10 mg tablet Take 1 tablet (10 mg total) by mouth. 08/03/20 23 Active naproxen (NAPROSYN) 500 MG tablet Take 1 tablet (500 mg total) by mouth. 07/26/20 23 Active rosuvastatin (CRESTOR) 20 MG tablet Take 1 tablet (20 mg total) by mouth. 07/23/20 Active Ozempic 1 mg/dose (4 mg/3 mL) PnIj Inject 1 mg subcutaneously once a week. 02/22/20 Active valsartan-hydro chlorothiazide (DIOVAN-HCT) 320-12.5 mg per tablet Take 1 tablet by mouth. Active arginine-glutam ine-calcium HMB (Jose) 7-7-1.5 gram pwpk Take 1 Package by mouth 2 (two) times daily with breakfast and dinner. 07/19/20 Active lamoTRIgine 100 mg tr24 Take 1 tablet (100 mg total) by mouth daily DIRECTED. Active methocarbamoL (ROBAXIN) 750 MG tablet Take 1 tablet (750 mg total) by mouth 3 (three) times daily. 07/19/20 Active metoprolol succinate (TOPROL-XL) 100 MG 24 hr tablet Take 1 tablet (100 mg total) by mouth daily ONCE DAILY. Active docusate sodium (COLACE) 100 MG capsule Take 2 capsules (200 mg total) by mouth. 025 Discontinu ed(Per Patient: Not Taking) ciprofloxacin HCl (CIPRO) 500 MG tablet Take 1 tablet (500 mg total) by mouth 2 (two) times daily. 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/2024 Folic acid deficiency 05/18/2023 03/28/2024 Vitamin E deficiency 05/18/2023 03/28/2024 Helicobacter pylori gastrointestinal tract infec tion 04/22/2023 03/28/2024 Celiac disease 04/13/2023 03/28/2024 Anxiety 02/01/2023 03/28/2024 Asthma 02/01/2023 03/28/2024 Chronic idiopathic constipation 02/01/2023 03/28/2024 Gaseous regurgitation 02/01/2023 03/28/2024 Heartburn 02/01/2023 03/28/2024 Depression 02/01/2023 03/28/2024 Right inguinal hernia 02/01/2023 03/28/2024 Upper abdominal pain 02/01/2023 03/28/2024 Body mass index (BMI) 50.0-59.9, adult 03/28/2024 Overview (03/28/2024): Last Assessment & Plan: Condition: stable Educated patient on normal BMI range of 18.5 to 24.9 Advised to monitor nutrition to not exceed caloric needs, or as indicated by PCP in order to maintain a healthy weight and BMI. Advised to engage in aerobic physical activity, if indicated to be safe by PCP, to assist with maintaining a healthy weight and BMI. Advised to follow up with PCP to address nutrition as needed to assist with reaching or maintaining a healthy weight and BMI. Follow up in: six months Major depressive disorder 02/15/20222023 Overview (03/28/2024): Last Assessment & Plan: Condition: stable No recent mental health visit. Advised to follow up Medications: Not currently being managed with medications If taking medications, do not stop treatment without consulting healthcare provider. If symptoms worsen or do not improve/stabilize, notify health care provider right away. If thoughts of harming self or others notify health care provider immediately &/or seek urgent/emergent care including calling Suicide Hotline ( ) or 911. Follow up in three months with Psychologist/Counselor/SupportGroup/Psychiatrist and PCP Morbid (severe) obesity due to excess calories 0 02/15/2022 03/28/2024 Overview (03/28/2024): Last Assessment & Plan: Condition: stable Co-morbidities: Type 2 Diabetes Follow up in: three months Last Assessment & Plan: Condition: stable Co-morbidities: Type 2 Diabetes Follow up in: three months Routine health maintenance 02/15/202203/28 Overview (03/28/2024): Last Assessment & Plan: Condition: stable Follow up in: three months Type 2 diabetes mellitus 02/15/2022 024 Overview (03/28/2024): Last Assessment & Plan: Condition: stable Discussed glucose control targets. Educated on: Lifestyle changes Follow up in: three months with PCP Last Assessment & Plan: Condition: stable Discussed glucose control targets. Educated on: Lifestyle changes Follow up in: three months with PCP Vitamin D deficiency 02/15/2022 03/28/2024 Overview (03/28/2024): Last Assessment & Plan: Condition: stable Follow up in: three months Last Assessment & Plan: Condition: stable Follow up in: three months Chronic obstructive pulmonary disease, unspecifi ed 01/09/2022 03/28/2024 Overview (03/28/2024): Last Assessment & Plan: Condition: stable Reviewed trigger avoidance and reviewed proper use of inhalers and rescue medications. Reviewed concerning signs/symptoms and ER precautions. Follow up in: three months Last Assessment & Plan: Condition: stable Reviewed trigger avoidance and reviewed proper use of inhalers and rescue medications. Reviewed concerning signs/symptoms and ER precautions. Follow up in: three months Immunizations Immunization Administration Dates Next Due COVID-19 2022- VACCINE MOD JAKE (SPIKEVAX) 12 YRS + ([id number]) 01/24/2024(Deferred: Patient Refused) Covid-19 Vaccine MRNA (PF) 1 8yr+ (Moderna)([id number]) 12/24/2022(Deferred: Patient Refused) Influenza Four-qiv Pf 01/24/2024(Deferre d: Patient Refused),03/09/2023(Deferred: Patient Refused),12/24/2022(Deferred: Patient Refused) Social History Tobacco Use Types Packs/Day Years [...] Date Franko rded Speak language other than Slovenian at home Not on file 12/23/2023 Want help with school or training Not on file 12/23/2023 Substance Use Answer Date Recorded Used prescription meds for non-medical reasons N ot on file 12/23/2023 Used illegal drugs past 12 months Not on file 12/23/2023 Comments Unknown Sex and Gender Information Value Date Recorded Sex Assigned at Not on file 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 Gender Identity Not on file Sexual Orientation Not on file Last Filed Vital Signs Vital Sign Reading Time Taken Comments Blood Pressure 126/74 08/19/2025 4:17 PM EDT Pulse 124 08/19/2025 4:17 PM EDT Temperature 36.1 C (96.9 F) 08/19/2025 4:17 PM EDT Respiratory Rate 20 08/19/2025 4:17 PM EDT Oxygen Saturation - - Inhaled Oxygen Concentration - - Weight 148.3 kg (327 lb) 03/28/2024 9:49 AM EDT Height 177.8 cm (5' 10 ) 03/28/2024 9:49 AM EDT Body Mass Index 46.92 03/28/2024 9:49 AM EDT Plan of Treatment Upcoming Encounters Date Type Department Care Team (Late st Contact Info) Description 08/21/2025 3:30 PM EDT Clinical Support [facility] [address] [place] [address] 08/23/2025 3:30 PM EDT Clinical Support [facility] [place] [address] [place] [address] Procedures Procedure Name Priority Date/Time Associated Diagnosis Comments PA DEBRIDEMENT SUBCUTANEOUS TISSUE EA ADDL 20 SQ CM Routine 08/19/2025 3:40 PM EDT 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) Localized tissue (HCC) Other specified local infections of the skin and subcutaneous tissue PA DEBRIDEMENT SUBCUTANEOUS TISSUE EA ADDL 20 SQ CM Routine 08/19/2025 3:40 PM EDT 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) Localized tissue (HCC) Other specified local infections of the skin and subcutaneous tissue PA DEBRIDEMENT SUBCUTANEOUS TISSUE EA ADDL 20 SQ CM Routine 08/19/2025 3:40 PM EDT 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) Localized tissue (HCC) Other specified local infections of the skin and subcutaneous tissue PA DEBRIDEMENT SUBCUTANEOUS TISSUE EA ADDL 20 SQ CM Routine 08/19/2025 3:40 PM EDT 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) Localized tissue (HCC) Other specified local infections of the skin and subcutaneous tissue PA DEBRIDEMENT SUBCUTANEOUS TISSUE EA ADDL 20 SQ CM Routine 08/19/2025 3:40 PM EDT 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) Localized tissue (HCC) Other specified local infections of the skin and subcutaneous tissue PA DEBRIDEMENT SUBCUTANEOUS TISSUE EA ADDL 20 SQ CM Routine 08/19/2025 3:40 PM EDT 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) Localized tissue (HCC) Other specified local infections of the skin and subcutaneous tissue PA DEBRIDEMENT SUBCUTANEOUS TISSUE EA ADDL 20 SQ CM Routine 08/19/2025 3:40 PM EDT 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) Localized tissue (HCC) Other specified local infections of the skin and subcutaneous tissue PA DEBRIDEMENT SUBCUTANEOUS TISSUE EA ADDL 20 SQ CM Routine 08/19/2025 3:40 PM EDT 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) Localized tissue (HCC) Other specified local infections of the skin and subcutaneous tissue PA DEBRIDEMENT SUBCUTANEOUS TISSUE EA ADDL 20 SQ CM Routine 08/19/2025 3:40 PM EDT 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) Localized tissue (HCC) Other specified local infections of the skin and subcutaneous tissue PA DEBRIDEMENT SUBCUTANEOUS TISSUE 1ST 20 SQ CM/< Routine 08/19/2025 3:40 PM EDT 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) Localized tissue (HCC) Other specified local infections of the skin and subcutaneous tissue WOUND CULTURE + GRAM STAIN Routine 08/14/2025 4:51 PM EDT Other specified local infections of the skin and subcutaneous tissue PA DEBRIDEMENT SUBCUTANEOUS TISSUE EA ADDL 20 SQ CM Routine 08/12/2025 11:00 AM EDT 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) Localized tissue (HCC) Other specified local infections of the skin and subcutaneous tissue PA DEBRIDEMENT SUBCUTANEOUS TISSUE EA ADDL 20 SQ CM Routine 08/12/2025 11:00 AM EDT 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) Localized tissue (HCC) Other specified local infections of the skin and subcutaneous tissue PA DEBRIDEMENT SUBCUTANEOUS TISSUE EA ADDL 20 SQ CM Routine 08/12/2025 11:00 AM EDT 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) Localized tissue (HCC) Other specified local infections of the skin and subcutaneous tissue PA DEBRIDEMENT SUBCUTANEOUS TISSUE EA ADDL 20 SQ CM Routine 08/12/2025 11:00 AM EDT 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) Localized tissue (HCC) Other specified local infections of the skin and subcutaneous tissue PA DEBRIDEMENT SUBCUTANEOUS TISSUE EA ADDL 20 SQ CM Routine 08/12/2025 11:00 AM EDT 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) Localized tissue (HCC) Other specified local infections of the skin and subcutaneous tissue PA DEBRIDEMENT SUBCUTANEOUS TISSUE EA ADDL 20 SQ CM Routine 08/12/2025 11:00 AM EDT 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) Localized tissue (HCC) Other specified local infections of the skin and subcutaneous tissue PA DEBRIDEMENT SUBCUTANEOUS TISSUE EA ADDL 20 SQ CM Routine 08/12/2025 11:00 AM EDT 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) Localized tissue (HCC) Other specified local infections of the skin and subcutaneous tissue PA DEBRIDEMENT SUBCUTANEOUS TISSUE EA ADDL 20 SQ CM Routine 08/12/2025 11:00 AM EDT 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) Localized tissue (HCC) Other specified local infections of the skin and subcutaneous tissue PA DEBRIDEMENT SUBCUTANEOUS TISSUE EA ADDL 20 SQ CM Routine 08/12/2025 11:00 AM EDT 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) Localized tissue (HCC) Other specified local infections of the skin and subcutaneous tissue PA DEBRIDEMENT SUBCUTANEOUS TISSUE EA ADDL 20 SQ CM Routine 08/12/2025 11:00 AM EDT 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) Localized tissue (HCC) Other specified local infections of the skin and subcutaneous tissue PA DEBRIDEMENT SUBCUTANEOUS TISSUE EA ADDL 20 SQ CM Routine 08/12/2025 11:00 AM EDT 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) Localized tissue (HCC) Other specified local infections of the skin and subcutaneous tissue PA DEBRIDEMENT SUBCUTANEOUS TISSUE 1ST 20 SQ CM/< Routine 08/12/2025 11:00 AM EDT 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) Localized tissue (HCC) Other specified local infections of the skin and subcutaneous tissue PA DEBRIDEMENT SUBCUTANEOUS TISSUE EA ADDL 20 SQ CM Routine 08/05/2025 1:10 PM EDT 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) Localized tissue (HCC) Other specified local infections of the skin and subcutaneous tissue PA DEBRIDEMENT SUBCUTANEOUS TISSUE EA ADDL 20 SQ CM Routine 08/05/2025 1:10 PM EDT 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) Localized tissue (HCC) Other specified local infections of the skin and subcutaneous tissue PA DEBRIDEMENT SUBCUTANEOUS TISSUE EA ADDL 20 SQ CM Routine 08/05/2025 1:10 PM EDT 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) Localized tissue (HCC) Other specified local infections of the skin and subcutaneous tissue PA DEBRIDEMENT SUBCUTANEOUS TISSUE EA ADDL 20 SQ CM Routine 08/05/2025 1:10 PM EDT 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) Localized tissue (HCC) Other specified local infections of the skin and subcutaneous tissue PA DEBRIDEMENT SUBCUTANEOUS TISSUE EA ADDL 20 SQ CM Routine 08/05/2025 1:10 PM EDT 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) Localized tissue (HCC) Other specified local infections of the skin and subcutaneous tissue PA DEBRIDEMENT SUBCUTANEOUS TISSUE EA ADDL 20 SQ CM Routine 08/05/2025 1:10 PM EDT 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) Localized tissue (HCC) Other specified local infections of the skin and subcutaneous tissue PA DEBRIDEMENT SUBCUTANEOUS TISSUE EA ADDL 20 SQ CM Routine 08/05/2025 1:10 PM EDT 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) Localized tissue (HCC) Other specified local infections of the skin and subcutaneous tissue PA DEBRIDEMENT SUBCUTANEOUS TISSUE EA ADDL 20 SQ CM Routine 08/05/2025 1:10 PM EDT 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) Localized tissue (HCC) Other specified local infections of the skin and subcutaneous tissue PA DEBRIDEMENT SUBCUTANEOUS TISSUE EA ADDL 20 SQ CM Routine 08/05/2025 1:10 PM EDT 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) Localized tissue (HCC) Other specified local infections of the skin and subcutaneous tissue PA DEBRIDEMENT SUBCUTANEOUS TISSUE EA ADDL 20 SQ CM Routine 08/05/2025 1:10 PM EDT 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) Localized tissue (HCC) Other specified local infections of the skin and subcutaneous tissue PA DEBRIDEMENT SUBCUTANEOUS TISSUE EA ADDL 20 SQ CM Routine 08/05/2025 1:10 PM EDT 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) Localized tissue (HCC) Other specified local infections of the skin and subcutaneous tissue PA DEBRIDEMENT SUBCUTANEOUS TISSUE EA ADDL 20 SQ CM Routine 08/05/2025 1:10 PM EDT 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) Localized tissue (HCC) Other specified local infections of the skin and subcutaneous tissue PA DEBRIDEMENT SUBCUTANEOUS TISSUE 1ST 20 SQ CM/< Routine 08/05/2025 1:10 PM EDT 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) Localized tissue (HCC) Other specified local infections of the skin and subcutaneous tissue from Last 3 Months Results * PA DEBRIDEMENT SUBCUTANEOUS TISSUE 1ST 20 SQ CM/<, PA DEBRIDEMENT SUBCUTANEOUS TISSUE EA ADDL 20SQ CM, PA DEBRIDEMENT SUBCUTANEOUS TISSUE EA ADDL 20 SQ CM, PA DEBRIDEMENT SUBCUTANEOUS TISSUE EA ADDL 20 SQ CM, PA DEBRIDEMENT SUBCUTANEOUS TISSUE EA ADDL 20 SQ CM, PA DEBRIDEMENT SUBCUTANEOUS TISSUE EA ADDL 20 SQ CM, PA DEBRIDEMENT SUBCUTANEOUS TISSUE EA ADDL 20 SQ CM, PA DEBRIDEMENT SUBCUTANEOUSTISSUE EA ADDL 20 SQ CM, PA DEBRIDEMENT SUBCUTANEOUS TISSUE EA ADDL 20 SQ CM, PA DEBRIDEMENT SUBCUTANEOUS TISSUE EA ADDL 20 SQ [...] provider verified the correct patient, procedure, equipment, bilingual patient support caseworker, and site/side marked as required. Debridement Details [...] Jr., MD PROCEDURE/MINOR SURGICAL ORDERABLES Final Result * (ABNORMAL) Wound Culture + Gram Stain (08/14/2025 4:51 PM EDT) Result Light Growth Streptococcus agalactiae(A) 08/17/2025 2:03 PM EDT [facility] Result Light Growth Corynebacterium species(A) 08/17/2025 2:03 PM EDT [facility] Result Light Growth Corynebacterium species(A) 08/17/2025 2:03 PM EDT [facility] Comment:Second [place] Type Gram Stain Result No organisms seen 08/17/2025 2:03 PM EDT [facility] Gram Stain Result Few WBCs 08/17/2025 2:03 PM EDT [facility] Wound INGUINAL REGION STRUCTURE / Unknown 08/14/2025 4:51 PM EDT 08/14/2025 5:42 PM EDT Narrative [facility] - 08/17/2025 2:03 PM EDT Mixed growth suggestive of colonization or indigenous silvestre us Sukhdev Bazan Jr., MD MICROBIOLOGY - GENERAL OR DERABLES Final Result [facility] [address] [phone] * PA DEBRIDEMENT SUBCUTANEOUS TISSUE 1ST 20 SQ CM/<, PA DEBRIDEMENT SUBCUTANEOUS TISSUE EA ADDL 20SQ CM, PA DEBRIDEMENT SUBCUTANEOUS TISSUE EA ADDL 20 SQ CM, PA DEBRIDEMENT SUBCUTANEOUS TISSUE EA ADDL 20 SQ CM, PA DEBRIDEMENT SUBCUTANEOUS TISSUE EA ADDL 20 SQ CM, PA DEBRIDEMENT SUBCUTANEOUS TISSUE EA ADDL 20 SQ CM, PA DEBRIDEMENT SUBCUTANEOUS TISSUE EA ADDL 20 SQ CM, PA DEBRIDEMENT SUBCUTANEOUSTISSUE EA ADDL 20 SQ CM, PA DEBRIDEMENT SUBCUTANEOUS TISSUE EA ADDL 20 SQ CM, PA DEBRIDEMENT SUBCUTANEOUS TISSUE EA ADDL 20 SQ CM, PA DEBRIDEMENT SUBCUTANEOUS TISSUE EA ADDL 20 SQ CM, PA DEBRIDEMENT S UBCUTANEOUS TISSUE EA ADDL 20 [...] provider verified the correct patient, procedure, equipment, bilingual patient support caseworker, and site/side marked as required. Debridement Details [...] Jr., MD PROCEDURE/MINOR SURGICAL ORDERABLES Final Result * PA DEBRIDEMENT SUBCUTANEOUS TISSUE 1ST 20 SQ CM/<, PA DEBRIDEMENT SUBCUTANEOUS TISSUE EA ADDL 20SQ CM, PA DEBRIDEMENT SUBCUTANEOUS TISSUE EA ADDL 20 SQ CM, PA DEBRIDEMENT SUBCUTANEOUS TISSUE EA ADDL 20 SQ CM, PA DEBRIDEMENT SUBCUTANEOUS TISSUE EA ADDL 20 SQ CM, PA DEBRIDEMENT SUBCUTANEOUS TISSUE EA ADDL 20 SQ CM, PA DEBRIDEMENT SUBCUTANEOUS TISSUE EA ADDL 20 SQ CM, PA DEBRIDEMENT SUBCUTANEOUSTISSUE EA ADDL 20 SQ CM, PA DEBRIDEMENT SUBCUTANEOUS TISSUE EA ADDL 20 SQ CM, PA DEBRIDEMENT SUBCUTANEOUS TISSUE EA ADDL 20 SQ CM, PA DEBRIDEMENT SUBCUTANEOUS TISSUE EA ADDL 20 SQ CM, PA DEBRIDEMENT S UBCUTANEOUS TISSUE EA ADDL 20 SQ CM, PA DEBRIDEMENT SUBCUTANEOUS TISSUE EA ADDL 20 SQ [...] provider verified the correct patient, procedure, equipment, bilingual patient support caseworker, and site/side marked as required. 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
--- OUTSIDE RECORDS SUMMARY | 2025-08-20 21:26 | XMS_ITS | Encounter Summary ---
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 Gender Identity Not on file Sexual Orientation Not on file documented as of this encounter Plan of Treatment Upcoming Encounters Date Type Department Care Team (Late st Contact Info) Description 08/21/2025 3:30 PM EDT Clinical Support [facility] [address] [place] [address] 08/23/2025 3:30 PM EDT Clinical Support [facility] [address] [place] [id number] documented as of this encounter Visit Diagnoses Not on filedocumented in this encounter Care Teams Activated Sludge Operator Relationship Specialty Start Date End Date Yenny Dhillon APRN [address] [place] [address] PCP - General Nurse Practitioner 03/13/24 documented as of this encounter
--- OUTSIDE RECORDS SUMMARY | 2025-08-20 21:27 | XMS_ITS | Clinical Summary ---
Author Organization [employer] ([place], [place], [place]) Address [address] [place] [address] Care Team Providers Care Assurance Specialist Name Role Phone Yenny Dhillon APRN Primary Care Provider [phone] Allergies Active Allergy Reactions Criticality Noted Date [...] (1,000 mcg total) by mouth daily. 03/19/20 Active vexwmhwu-zqpe-q ct5-M-zvak-bosw (Osteo Bi-Flex Triple Strength) 750 mg-644 mg- 30 mg-1 mg Tab Take 1 tablet by mouth 2 (two) times daily. Active Linzess 72 mcg Cap Take 1 capsule (72 mcg total) by mouth every morning. 03/26/20 Active loratadine (CLARITIN) 10 mg tablet Take 1 tablet (10 mg total) by mouth daily. 12/30/19 Active metFORMIN (GLUCOPHAGE) 500 MG tablet SMARTSI Tablet(s) By Mouth Morning-Evening 01/03/20 Active Myrbetriq 25 mg Tb24 ER tablet Take 1 tablet (25 mg total) by mouth daily. 03/19/20 Active montelukast (SINGULAIR) 10 mg tablet Take 1 tablet (10 mg total) by mouth. 08/03/20 Active naproxen (NAPROSYN) 500 MG tablet Take 1 tablet (500 mg total) by mouth. 07/26/20 Active rosuvastatin (CRESTOR) 20 MG tablet Take [...] including calling Suicide Hotline ( ) or 527. Follow up in three months with Psychologist/Counselor/SupportGroup/Psychiatrist [...] Date Type Department Care Team Description 08/19/2025 3:40 PM EDT Office Visit 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) (Primary Dx); Localized tissue (HCC); Other specified local infections of the skin and subcutaneous tissue; Diabetes mellitus with skin ulcer (HCC) 08/12/2025 Travel 08/09/2025 10:45 AM EDT Clinical Support [facility] [address] [address] Sukhdev Bazan Jr., MD 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 [address] [place] [address] Madeline Lara, BIBLE TEACHER from Last 3 Months Immunizations Immunization Administration Dates Next Due COVID-19 2022- VACCINE MOD JAKE (SPIKEVAX) 12 YRS + ([id number]) 01/24/2024(Deferred: Patient Refused) Covid-19 Vaccine MRNA (PF) 1 8yr+ (Moderna)([id number]) 12/24/2022(Deferred: Patient Refused) Influenza Four-qiv Pf 01/24/2024(Deferre d: Patient Refused),03/09/2023(Deferred: Patient Refused),12/24/2022(Deferred: Patient Refused) Family History Medical History Relation Name Comments Diabetes Maternal Grandfather Diabetes Maternal Grandmother Diabetes Mother Heart disease Mother Relation Name Status Comments Maternal Grandfather Maternal Grandmother Mother Social History Tobacco Use Types Packs/Day [...] Date Franko rded Speak language other than Prydeinig at home Not on file 12/23/2023 Want help with school or training Not on file 12/23/2023 Substance Use Answer Date Recorded Used prescription meds for non-medical reasons N ot on file 12/23/2023 Used illegal drugs past 12 months Not on file 12/23/2023 Comments Unknown Sex and Gender Information Value Date Recorded Sex Assigned at Not on file 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 [address] [place] [address] Health Maintenance Due Date Last Done Comments CT Colonography 1976 Colonoscopy 1976 Colorectal Cancer Screening 1976 Diabetic Kidney Health Evaluation (KED) 1976 FOBT/FIT 1976 Fit-DNA (Cologuard) 1976 Sigmoidoscopy 1976 Diabetic Eye Exam 1986 Tobacco Cessation Counseling and Screening (12+) 06/07 HIV Screening 1991 Hepatitis C Screening 1994 DTAP/TDAP/TD VACCINES (1 - Tdap) 1995 Pneumococcal Vaccine: 0-49 Years (1 of 2 - PCV) 1994 Breast Cancer Screening 2016 Lipid Panel 2021 Hemoglobin A1C 03/28/2024 COVID-19 VACCINE (2 - 2024- season) 2025 Influenza Vaccine (#1) 2025 Procedures Procedure Name Priority Date/Time Associated Diagnosis Comments SC DEBRIDEMENT SUBCUTANEOUS TISSUE EA ADDL 20 SQ CM Routine 08/19/2025 3:40 PM EDT 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) Localized tissue (HCC) Other specified local infections of the skin and subcutaneous tissue SC DEBRIDEMENT SUBCUTANEOUS TISSUE EA ADDL 20 SQ CM Routine 08/19/2025 3:40 PM EDT 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) Localized tissue (HCC) Other specified local infections of the skin and subcutaneous tissue SC DEBRIDEMENT SUBCUTANEOUS TISSUE EA ADDL 20 SQ CM Routine 08/19/2025 3:40 PM EDT 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) Localized tissue (HCC) Other specified local infections of the skin and subcutaneous tissue SC DEBRIDEMENT SUBCUTANEOUS TISSUE EA ADDL 20 SQ CM Routine 08/19/2025 3:40 PM EDT 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) Localized tissue (HCC) Other specified local infections of the skin and subcutaneous tissue SC DEBRIDEMENT SUBCUTANEOUS TISSUE EA ADDL 20 SQ CM Routine 08/19/2025 3:40 PM EDT 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) Localized tissue (HCC) Other specified local infections of the skin and subcutaneous tissue SC DEBRIDEMENT SUBCUTANEOUS TISSUE EA ADDL 20 SQ CM Routine 08/19/2025 3:40 PM EDT 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) Localized tissue (HCC) Other specified local infections of the skin and subcutaneous tissue SC DEBRIDEMENT SUBCUTANEOUS TISSUE EA ADDL 20 SQ CM Routine 08/19/2025 3:40 PM EDT 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) Localized tissue (HCC) Other specified local infections of the skin and subcutaneous tissue SC DEBRIDEMENT SUBCUTANEOUS TISSUE EA ADDL 20 SQ CM Routine 08/19/2025 3:40 PM EDT 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) Localized tissue (HCC) Other specified local infections of the skin and subcutaneous tissue SC DEBRIDEMENT SUBCUTANEOUS TISSUE EA ADDL 20 SQ CM Routine 08/19/2025 3:40 PM EDT 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) Localized tissue (HCC) Other specified local infections of the skin and subcutaneous tissue SC DEBRIDEMENT SUBCUTANEOUS TISSUE 1ST 20 SQ CM/< Routine 08/19/2025 3:40 PM EDT 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) Localized tissue (HCC) Other specified local infections of the skin and subcutaneous tissue WOUND CULTURE + GRAM STAIN Routine 08/14/2025 4:51 PM EDT Other specified local infections of the skin and subcutaneous tissue SC DEBRIDEMENT SUBCUTANEOUS TISSUE EA ADDL 20 SQ CM Routine 08/12/2025 11:00 AM EDT 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) Localized tissue (HCC) Other specified local infections of the skin and subcutaneous tissue SC DEBRIDEMENT SUBCUTANEOUS TISSUE EA ADDL 20 SQ CM Routine 08/12/2025 11:00 AM EDT 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) Localized tissue (HCC) Other specified local infections of the skin and subcutaneous tissue SC DEBRIDEMENT SUBCUTANEOUS TISSUE EA ADDL 20 SQ CM Routine 08/12/2025 11:00 AM EDT 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) Localized tissue (HCC) Other specified local infections of the skin and subcutaneous tissue SC DEBRIDEMENT SUBCUTANEOUS TISSUE EA ADDL 20 SQ CM Routine 08/12/2025 11:00 AM EDT 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) Localized tissue (HCC) Other specified local infections of the skin and subcutaneous tissue SC DEBRIDEMENT SUBCUTANEOUS TISSUE EA ADDL 20 SQ CM Routine 08/12/2025 11:00 AM EDT 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) Localized tissue (HCC) Other specified local infections of the skin and subcutaneous tissue SC DEBRIDEMENT SUBCUTANEOUS TISSUE EA ADDL 20 SQ CM Routine 08/12/2025 11:00 AM EDT 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) Localized tissue (HCC) Other specified local infections of the skin and subcutaneous tissue SC DEBRIDEMENT SUBCUTANEOUS TISSUE EA ADDL 20 SQ CM Routine 08/12/2025 11:00 AM EDT 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) Localized tissue (HCC) Other specified local infections of the skin and subcutaneous tissue SC DEBRIDEMENT SUBCUTANEOUS TISSUE EA ADDL 20 SQ CM Routine 08/12/2025 11:00 AM EDT 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) Localized tissue (HCC) Other specified local infections of the skin and subcutaneous tissue SC DEBRIDEMENT SUBCUTANEOUS TISSUE EA ADDL 20 SQ CM Routine 08/12/2025 11:00 AM EDT 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) Localized tissue (HCC) Other specified local infections of the skin and subcutaneous tissue SC DEBRIDEMENT SUBCUTANEOUS TISSUE EA ADDL 20 SQ CM Routine 08/12/2025 11:00 AM EDT 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) Localized tissue (HCC) Other specified local infections of the skin and subcutaneous tissue SC DEBRIDEMENT SUBCUTANEOUS TISSUE EA ADDL 20 SQ CM Routine 08/12/2025 11:00 AM EDT 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) Localized tissue (HCC) Other specified local infections of the skin and subcutaneous tissue SC DEBRIDEMENT SUBCUTANEOUS TISSUE 1ST 20 SQ CM/< Routine 08/12/2025 11:00 AM EDT 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) Localized tissue (HCC) Other specified local infections of the skin and subcutaneous tissue SC DEBRIDEMENT SUBCUTANEOUS TISSUE EA ADDL 20 SQ CM Routine 08/05/2025 1:10 PM EDT 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) Localized tissue (HCC) Other specified local infections of the skin and subcutaneous tissue SC DEBRIDEMENT SUBCUTANEOUS TISSUE EA ADDL 20 SQ CM Routine 08/05/2025 1:10 PM EDT 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) Localized tissue (HCC) Other specified local infections of the skin and subcutaneous tissue SC DEBRIDEMENT SUBCUTANEOUS TISSUE EA ADDL 20 SQ CM Routine 08/05/2025 1:10 PM EDT 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) Localized tissue (HCC) Other specified local infections of the skin and subcutaneous tissue SC DEBRIDEMENT SUBCUTANEOUS TISSUE EA ADDL 20 SQ CM Routine 08/05/2025 1:10 PM EDT 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) Localized tissue (HCC) Other specified local infections of the skin and subcutaneous tissue SC DEBRIDEMENT SUBCUTANEOUS TISSUE EA ADDL 20 SQ CM Routine 08/05/2025 1:10 PM EDT 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) Localized tissue (HCC) Other specified local infections of the skin and subcutaneous tissue SC DEBRIDEMENT SUBCUTANEOUS TISSUE EA ADDL 20 SQ CM Routine 08/05/2025 1:10 PM EDT 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) Localized tissue (HCC) Other specified local infections of the skin and subcutaneous tissue SC DEBRIDEMENT SUBCUTANEOUS TISSUE EA ADDL 20 SQ CM Routine 08/05/2025 1:10 PM EDT 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) Localized tissue (HCC) Other specified local infections of the skin and subcutaneous tissue SC DEBRIDEMENT SUBCUTANEOUS TISSUE EA ADDL 20 SQ CM Routine 08/05/2025 1:10 PM EDT 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) Localized tissue (HCC) Other specified local infections of the skin and subcutaneous tissue SC DEBRIDEMENT SUBCUTANEOUS TISSUE EA ADDL 20 SQ CM Routine 08/05/2025 1:10 PM EDT 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) Localized tissue (HCC) Other specified local infections of the skin and subcutaneous tissue SC DEBRIDEMENT SUBCUTANEOUS TISSUE EA ADDL 20 SQ CM Routine 08/05/2025 1:10 PM EDT 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) Localized tissue (HCC) Other specified local infections of the skin and subcutaneous tissue SC DEBRIDEMENT SUBCUTANEOUS TISSUE EA ADDL 20 SQ CM Routine 08/05/2025 1:10 PM EDT 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) Localized tissue (HCC) Other specified local infections of the skin and subcutaneous tissue SC DEBRIDEMENT SUBCUTANEOUS TISSUE EA ADDL 20 SQ CM Routine 08/05/2025 1:10 PM EDT 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) Localized tissue (HCC) Other specified local infections of the skin and subcutaneous tissue SC DEBRIDEMENT SUBCUTANEOUS TISSUE 1ST 20 SQ CM/< Routine 08/05/2025 1:10 PM EDT 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) Localized tissue (HCC) Other specified local infections of the skin and subcutaneous tissue from Last 3 Months Results * SC DEBRIDEMENT SUBCUTANEOUS TISSUE 1ST 20 SQ CM/<, SC DEBRIDEMENT SUBCUTANEOUS TISSUE EA ADDL 20SQ CM, SC DEBRIDEMENT SUBCUTANEOUS TISSUE EA ADDL 20 SQ CM, SC DEBRIDEMENT SUBCUTANEOUS TISSUE EA ADDL 20 SQ CM, SC DEBRIDEMENT SUBCUTANEOUS TISSUE EA ADDL 20 SQ CM, SC DEBRIDEMENT SUBCUTANEOUS TISSUE EA ADDL 20 SQ CM, SC DEBRIDEMENT SUBCUTANEOUS TISSUE EA ADDL 20 SQ CM, SC DEBRIDEMENT SUBCUTANEOUSTISSUE EA ADDL 20 SQ CM, SC DEBRIDEMENT SUBCUTANEOUS TISSUE EA ADDL 20 SQ CM, SC DEBRIDEMENT SUBCUTANEOUS TISSUE EA ADDL 20 SQ [...] provider verified the correct patient, procedure, equipment, biomedical equipment support specialist, and site/side marked as required. [...] Growth Streptococcus agalactiae(A) 08/17/2025 2:03 PM EDT [facility] Result Light Growth Corynebacterium species(A) 08/17/2025 2:03 PM EDT [facility] Result Light Growth Corynebacterium species(A) 08/17/2025 2:03 PM EDT [facility] Comment:Second [place] Type Gram Stain Result No organisms seen 08/17/2025 2:03 PM EDT [facility] Gram Stain Result Few WBCs 08/17/2025 2:03 PM EDT [facility] Wound INGUINAL REGION STRUCTURE / Unknown 08/14/2025 4:51 PM EDT 08/14/2025 5:42 PM EDT Narrative [facility] - 08/17/2025 2:03 PM EDT Mixed growth suggestive of colonization or indigenous silvestre us Sukhdev Bazan Jr., MD MICROBIOLOGY - GENERAL OR DERABLES Final Result [facility] 1 [place] [address], [facility] [phone] * SC DEBRIDEMENT SUBCUTANEOUS TISSUE 1ST 20 SQ CM/<, SC DEBRIDEMENT SUBCUTANEOUS TISSUE EA ADDL 20SQ CM, SC DEBRIDEMENT SUBCUTANEOUS TISSUE EA ADDL 20 SQ CM, SC DEBRIDEMENT SUBCUTANEOUS TISSUE EA ADDL 20 SQ CM, SC DEBRIDEMENT SUBCUTANEOUS TISSUE EA ADDL 20 SQ CM, SC DEBRIDEMENT SUBCUTANEOUS TISSUE EA ADDL 20 SQ CM, SC DEBRIDEMENT SUBCUTANEOUS TISSUE EA ADDL 20 SQ CM, SC DEBRIDEMENT SUBCUTANEOUSTISSUE EA ADDL 20 SQ CM, SC DEBRIDEMENT SUBCUTANEOUS TISSUE EA ADDL 20 SQ CM, SC DEBRIDEMENT SUBCUTANEOUS TISSUE EA ADDL 20 SQ CM, SC DEBRIDEMENT SUBCUTANEOUS TISSUE EA ADDL 20 SQ CM, SC DEBRIDEMENT S UBCUTANEOUS TISSUE EA ADDL 20 [...] provider verified the correct patient, procedure, equipment, biomedical equipment support specialist, and site/side marked as required. [...] MD PROCEDURE/MINOR SURGICAL ORDERABLES Final Result * SC DEBRIDEMENT SUBCUTANEOUS TISSUE 1ST 20 SQ CM/<, SC DEBRIDEMENT SUBCUTANEOUS TISSUE EA ADDL 20SQ CM, SC DEBRIDEMENT SUBCUTANEOUS TISSUE EA ADDL 20 SQ CM, SC DEBRIDEMENT SUBCUTANEOUS TISSUE EA ADDL 20 SQ CM, SC DEBRIDEMENT SUBCUTANEOUS TISSUE EA ADDL 20 SQ CM, SC DEBRIDEMENT SUBCUTANEOUS TISSUE EA ADDL 20 SQ CM, SC DEBRIDEMENT SUBCUTANEOUS TISSUE EA ADDL 20 SQ CM, SC DEBRIDEMENT SUBCUTANEOUSTISSUE EA ADDL 20 SQ CM, SC DEBRIDEMENT SUBCUTANEOUS TISSUE EA ADDL 20 SQ CM, SC DEBRIDEMENT SUBCUTANEOUS TISSUE EA ADDL 20 SQ CM, SC DEBRIDEMENT SUBCUTANEOUS TISSUE EA ADDL 20 SQ CM, SC DEBRIDEMENT S UBCUTANEOUS TISSUE EA ADDL 20 SQ CM, SC DEBRIDEMENT SUBCUTANEOUS TISSUE EA ADDL 20 SQ [...] provider verified the correct patient, procedure, equipment, biomedical equipment support specialist, and site/side marked as required. [...] Final Result from Last 3 Months Insurance [facility] Care Teams Assurance Specialist Relationship Specialty Start Date End Date Yenny Dhillon APRN [address] [place] [address] PCP - General Nurse Practitioner 03/13/24
--- OUTSIDE RECORDS SUMMARY | 2025-08-20 21:27 | XMS_ITS | Encounter Summary ---
Author Organization [employer] ([place], [place], [place], [place]) Address [address] [place] [address] Care Team Providers Care Residence Counselor Name Role Phone Alejo Yenny GLORIA Primary Care Provider [phone] Encounter Details Date Type Department Care Team (Latest Contact Info) Description 08/07/2025 Travel Social History Tobacco Use Types Packs/Day [...] Date Franko rded Speak language other than Peruvian at home Not on file 12/23/2023 Want help with school or training Not on file 12/23/2023 Substance Use Answer Date Recorded Used prescription meds for non-medical reasons N ot on file 12/23/2023 Used illegal drugs past 12 months Not on file 12/23/2023 Comments Unknown Sex and Gender Information Value Date Recorded Sex Assigned at Not on file 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 Gender Identity Not on file Sexual Orientation Not on file documented as of this encounter Plan of Treatment Upcoming Encounters Date Type Department Care Team (Late st Contact Info) Description 08/21/2025 3:30 PM EDT Clinical Support [facility] [address] [place] [address] 08/23/2025 3:30 PM EDT Clinical Support [facility] [address] [place] [phone] documented as of this encounter Visit Diagnoses Not on filedocumented in this encounter Care Teams Residence Counselor Relationship Specialty Start Date End Date Yenny Dhillon APRN [address] [place] [address] PCP - General Nurse Practitioner 03/13/24 documented as of this encounter
--- OUTSIDE RECORDS SUMMARY | 2025-08-20 21:27 | XMS_ITS | Encounter Summary ---
Author Organization Healthcare Address [address] [place] [address] Care Team Providers Care Is/It Project Manager Name Role Phone DhillonYenny jones Lit CASTRO Primary Care Provider [phone] Encounter Details Date Type Department Care Team [...] Visit Medical Office Building Urology [address] [facility], [address] [place] [address] Marj Matamoros, GOLD BEATER [address] [facility] [address] [place] [address] documented as of this encounter [...] documented as of this encounter Care Teams Is/It Project Manager Relationship Specialty Start Date End Date Yenny Dhillon APRN [address] [place] [address] PCP - General 07/22/23 documented as of this encounter
--- OUTSIDE RECORDS SUMMARY | 2025-08-20 21:27 | XMS_ITS | Encounter Summary ---
Author Organization Healthcare Address [address] [place] [address] Care Team Providers Care Elevator Worker Name Role Phone DhillonYenny jones Lit CASTRO Primary Care Provider [phone] Encounter Details Date Type Department Care Team [...] Building Urology [address] [facility] [facility], [address] [place] [address] Marj Matamoros, MAXILLOFACIAL SURGEON [address] [facility] [address] [place] [address] documented as of this encounter [...] documented as of this encounter Care Teams Elevator Worker Relationship Specialty Start Date End Date Yenny Dhillon APRN [address] [place] [address] PCP - General 07/22/23 documented as of this encounter
[2025-08-20 22:01] VITALS: BP 122/67; PULSE 104; O2SAT 96
[2025-08-20 22:29] LABS: Microscopic, Urine URINE MICROSCOPIC (MICROSCOPIC)
[2025-08-20 22:31] LABS: Bilirubin,Urine Negative (Negative); Color,Urine YELLOW (Yellow); Glucose,Urine (UA) Negative (Negative); Ketones,Urine Negative (Negative); Leukocyte Esterase,Urine 3+ (Negative); PH,Urine 6.0 (5.0-8.5); Protein,Urine 1+ (Negative); Specific Gravity, Urine 1.015 (1.005-1.030); Urobilinogen,Urine 0.2 EU/dl (0.2)
[2025-08-20 22:38] LABS: Bacteria,Urine 1+ /lpf; Mucus,Urine 1+ /lpf; WBC,Urine 20-50 #/hpf (0-3)
--- NOTE | 2025-08-20 23:06 | HMH.EDGENADL ---
Discharge Plan Disposition Patient Disposition: Home, Self-Care Condition: Good Prescriptions Prescriptions: New cefdinir 300 mg capsule 300 mg PO BID 5 Days Qty: 10 0RF No Action (DME) Blood Glucose Test Strip See Rx Instructions .Route Qty: 50 3RF Rx Instructions: BID naproxen 500 mg tablet 500 mg PO BID Patient Comments: TAKE 1 TABLET BY MOUTH TWICE DAILY WITH FOOD cholecalciferol (vitamin D3) 125 mcg (5,000 unit) tablet 125 mcg PO DAILY Patient Comments: TAKE 1 TABLET BY MOUTH ONCE DAILY folic acid 1 mg tablet 1 mg PO DAILY Myrbetriq 25 mg tablet extended release 24 hr 25 mg PO DAILY Ozempic 0.25 mg or 0.5 mg (2 mg/3 mL) pen injector 0.25 mg SQ WEEKLY lamotrigine 100 mg tablet extended release 24hr 100 mg PO DAILY Patient Comments: TAKE 1 TABLET BY MOUTH ONCE DAILY AT NIGHT AT BEDTIME DIRECTED metoprolol succinate [Toprol XL] 100 mg tablet extended release 24 hr 100 mg PO DAILY Qty: 30 6RF albuterol sulfate 90 mcg/actuation HFA aerosol inhaler 2 inh IH Q6H PRN (Reason: shortness of breath or wheezing) 90 Days Qty: 8.5 3RF budesonide-formoterol [Symbicort] 160-4.5 mcg/actuation HFA aerosol inhaler 2 puff IH BID 90 Days Qty: 10.2 3RF fluticasone propionate [Flonase Allergy Relief] 50 mcg/actuation spray,suspension 2 spray NS DAILY PRN (Reason: allergy symptoms) 90 Days Qty: 16 3RF Rx Instructions: administer into each nostril montelukast 10 mg tablet 10 mg PO QPM 90 Days Qty: 90 2RF loratadine 10 mg tablet 10 mg PO DAILY Patient Comments: TAKE 1 TABLET BY MOUTH ONCE DAILY ipratropium-albuterol 0.5 mg-3 mg(2.5 mg base)/3 mL solution for nebulization 3 ml INHALATION Q6H PRN (Reason: shortness of breath or wheezing) Qty: 180 3RF levofloxacin 750 mg tablet 750 mg PO DAILY 5 Days Qty: 5 0RF Linzess 72 mcg capsule 72 mcg PO DAILY Patient Comments: TAKE 1 CAPSULE BY MOUTH ONCE DAILY FOR CONSTIPATION buspirone 15 mg tablet 15 mg PO TIDP PRN (Reason: Anxiety) Patient Comments: TAKE 1 TABLET BY MOUTH THREE TIMES DAILY NEEDED rosuvastatin 20 mg tablet 20 mg PO HS Patient Comments: TAKE 1 TABLET BY MOUTH ONCE DAILY duloxetine 60 mg capsule,delayed release(DR/EC) 60 mg PO DAILY Patient Comments: TAKE 1 CAPSULE BY MOUTH ONCE DAILY DIRECTED valsartan-hydrochlorothiazide 320-12.5 mg tablet 1 tab PO DAILY Patient Comments: TAKE 1 TABLET BY MOUTH ONCE DAILY metformin 500 mg tablet 500 mg PO DAILY Rx Instructions: Take 1 tablet by mouth twice daily Referrals Follow up/Referrals: Provider,Referral, MD [Primary Care Provider, Medical] - See instructions Activity Restrictions/Add. Instructions Additional Instructions/Restrictions: Please take Cefdinir twice daily for the next 5 days. If you have any new or worsening symptoms please return to the ER for further evaluation Clinical Impressions Clinical Impression: Encounter for Montalvo catheter replacement, Complicated urinary tract infection Instructions Patient Instructions: DI for Urinary Tract Infection (UTI), DI for Urinary Tract Infection in Children Print Language Print Language: Spanish Discharge ED Provider: Rob Guillory Adult HPI General Chief complaint: Urogenital-Female Stated complaint: leaking around montalvo cath Time Seen by Provider: 08/20/25 22:00 Mode of Arrival: Ambulatory Source of Information: Patient and Spouse Description of Symptoms (Recalled from ER Triage Doc. by RN): patient presents for issues with her montalvo catheter. patient had necrotizing fascitis in the archana area approximately around July 08. patient had wound vac placed at that time. patient had a montalvo catheter anchored two weeks ago here in the emegency department. patient has had alot of leakage of urine around the montalvo catheter and bloodd tinged urine as well. History of Present Illness HPI narrative: This is a 50-year-old female patient, with past medical history of hypertension, hyperlipidemia, and diabetes, who is presenting to the emergency department today for evaluation of her Montalvo catheter. Patient states that in the beginning of July she had a boil that appeared on her right groin. She presented to the [facility] and was ultimately diagnosed with necrotizing fasciitis. She was admitted over the course of July and had surgical debridements and was stabilized on IV antibiotics and transferred to [facility]. She ultimately had a Montalvo catheter placed and this catheter has been indwelling since that time. The patient actually presented to our emergency department on October 5 and was evaluated by myself. At that time we replaced the Montalvo catheter and she had resolution of symptoms. We have drawn a urine off of the catheter and she had evidence of urinary tract infection which we treated with Levaquin. She re-presents today stating that she is now leaking urine around the outside of the Montalvo catheter. Since the onset of this abnormal leakage of urine around the Montalvo catheter she feels that her catheter is not draining properly and she is having a sensation of suprapubic fullness and pain. She has not had any fevers, but she does continue to have painful voiding through the Montalvo catheter Related Data Home Medications ?Medication ?Instructions ?Recorded ?Confirmed folic acid 1 mg tablet 1 mg PO DAILY 07/07/23 07/08/25 cholecalciferol (vitamin D3) 125 125 mcg PO DAILY 08/09/23 07/08/25 mcg (5,000 unit) tablet naproxen 500 mg tablet 500 mg PO BID 08/09/23 07/08/25 mirabegron 25 mg tablet,extended 25 mg PO DAILY 02/08/24 07/08/25 release 24 hr (Myrbetriq) buspirone 15 mg tablet 15 mg PO TIDP PRN Anxiety 09/05/24 07/08/25 duloxetine 60 mg capsule,delayed 60 mg PO DAILY 09/05/24 07/08/25 release linaclotide 72 mcg capsule 72 mcg PO DAILY 09/05/24 07/08/25 (Linzess) metformin 500 mg tablet 500 mg PO DAILY 09/05/24 07/08/25 rosuvastatin 20 mg tablet 20 mg PO HS 09/05/24 07/08/25 valsartan 320 1 tab PO DAILY 09/05/24 07/08/25 mg-hydrochlorothiazide 12.5 mg tablet semaglutide 0.25 mg or 0.5 mg (2 0.25 mg SQ WEEKLY 03/27/25 07/08/25 mg/3 mL) subcutaneous pen injector (Ozempic) loratadine 10 mg tablet 10 mg PO DAILY 04/25/25 07/08/25 lamotrigine 100 mg tablet,extended 100 mg PO DAILY 06/25/25 07/08/25 release 24 hr Previous Rx's ?Medication ?Instructions ?Recorded blood sugar diagnostic (Blood #50 ea 04/28/22 Glucose Test strips) albuterol sulfate 90 mcg/actuation 2 inh inhalation Q6H PRN shortness 06/15/22 aerosol inhaler of breath or wheezing 90 days #8.5 grams ipratropium 0.5 mg-albuterol 3 mg 3 ml inhalation Q6H PRN shortness 11/28/23 (2.5 mg base)/3 mL nebulization of breath or wheezing #180 mL soln budesonide-formoterol HFA 160 2 puff inhalation BID 90 days 05/02/25 mcg-4.5 mcg/actuation aerosol #10.2 grams inhaler (Symbicort) fluticasone propionate 50 2 spray intranasal DAILY PRN 05/02/25 mcg/actuation nasal allergy symptoms 90 days #16 grams spray,suspension (Flonase Allergy Relief) montelukast 10 mg tablet 10 mg PO QPM 90 days #90 tabs 05/02/25 metoprolol succinate 100 mg 100 mg PO DAILY #30 tabs 06/25/25 tablet,extended release 24 hr (Toprol XL) levofloxacin 750 mg tablet 750 mg PO DAILY 5 days #5 tabs 08/11/25 cefdinir 300 mg capsule 300 mg PO BID 5 days #10 caps 08/20/25 Allergies Allergy/AdvReac Type Severity Reaction Status Date / Time bupropion (From Wellbutrin) Allergy Severe Anaphylaxis Verified 06/25/25 11:37 aspirin (ASPIRIN) Allergy Mild Unknown Verified 06/25/25 11:37 allergy reaction doxycycline (DOXYCYCLINE) Allergy Mild Unknown Verified 06/25/25 11:37 allergy reaction diazepam (From Valium) Allergy Unknown Verified 06/25/25 11:37 allergy reaction Penicillins Allergy Unknown Verified 06/25/25 11:37 allergy reaction alprazolam (From Xanax) AdvReac Severe Agitated Verified 06/25/25 11:37 [facility] PFS Disclaimer: The information contained in this section may have been updated after the patient was seen, as this information can be updated by other users. Medical History Respiratory failure with hypoxia Frequent PVCs Shortness of breath Snoring History of absence seizures Altered awareness, transient Hidradenitis Complex multifocal hidradenitis. Recent left medial thigh abscessed hidradenitis status post spontaneous drainage. Left lateral mid abdominal wall wound also noted (possible same etiology). Wound dehiscence Pharyngitis Abnormal electrocardiogram [ECG] [EKG] BMI 50.0-59.9, adult Bronchitis Diabetes mellitus Hyperlipidemia Allergic rhinitis Family history of emphysema Asthma Family history of asthma Tobacco abuse counseling Tobacco abuse disorder Dyspnea on exertion Smoking greater than 30 pack years Seasonal allergic rhinitis Moderate persistent asthma Morbid obesity HTN (hypertension), benign Hidradenitis suppurativa Surgical History History of carpal tunnel surgery Hx of cholecystectomy History of tonsillectomy History of hysterectomy Family History Other Cancer Coronary artery disease FHx: mental illness Heart attack Hyperlipidemia Hypertension No significant family history Stroke Social History Smoking Status: Never smoker second hand exposure: Yes alcohol intake: never substance use type: marijuana current occupational status: unemployed Travel in the last 8 weeks?: None housing: house Have you lived/traveled outside US in past 30 days?: No Contact w/someone who lives/traveled outside US past 30 days?: No Exposure to someone with infectious disease in past 14 days?: No Do you have a fever (greater than 100.4 F or 38 C)?: No Have you tested positive for COVID-19?: No Exposed to someone with COVID-19 in past 14 days?: No Do you have a sore throat?: No Do you have a cough?: No Do you have any weakness?: No Do you have any diarrhea?: No Are you experiencing any unusual bleeding?: No Do you have any muscle aches/pain?: No Do you have any abdominal pain?: No Are you experiencing loss of taste or smell?: No Other Medical History Have you received the Flu Vaccine for this season: No Have you received the Pneumonia Vaccine: No ROS Obtained: Yes Systems reviewed as appropriate & no additional complaints except as documented Physical Exam General General appearance: other (See MDM) Respiratory Respiratory exam: Present other (See MDM) Cardiovascular Cardiovascular exam: Present other (See MDM) Neurological Exam Neurological exam: Present other (See MDM) Medical Decision Making Medical Records Medical records reviewed: Yes I reviewed the patient's medical records. Screening: Per USPSTF and CDC recommendations, given the prevalence of disease in our region, it is our hospital?s policy to screen for HIV and viral Hepatitis for all patients aged 18 and over and those with ongoing risk factors. Cristian Inquiry Pt receiving controlled substance: No Cristian was queried for this patient: No Vital Signs: 08/20/25 20:54 08/20/25 22:01 08/20/25 23:32 Temperature 98.2 F 98.5 F Temperature Source Oral Oral Pulse Rate 104 H 100 H Pulse Rate [Right Radial] 118 H Respiratory Rate 18 20 Blood Pressure 122/67 138/78 Blood Pressure [Right Arm] 132/112 H Blood Pressure Mean 85 Blood Pressure Mean [Right Arm] 118 Blood Pressure Source [Right Arm] Automatic Cuff Blood Pressure Position [Right Arm] Sitting 02 Sat by Pulse Oximetry 98 96 Oxygen Delivery Method Room Air Room Air Lab Data Lab Results 08/20/25 22:24: Urine Color Yellow, Urine Appearance Clear, Urine pH 6.0, Ur Specific [place] 1.015, Urine Protein 1+ A, Urine Glucose (UA) Negative, Urine Ketones Negative, Urine Blood 3+ A, Urine Nitrate Negative, Urine Bilirubin Negative, Urine Urobilinogen 0.2, Ur Leukocyte Esterase 3+ A, Urine RBC 5-10, Urine WBC 20-50, Ur Squamous Epith Cells None, Urine Bacteria 1+, Urine Mucus 1+ Orders (Tests/Meds): ORDERS Category Date Time Status Urinalysis and Microscopic Stat Lab 08/20/25 22:24 Completed Urine Culture Stat Micro 08/20/25 22:27 Received Medical Decision Narrative: In summary, this is a 50-year-old female patient who is presenting to the emergency department today for evaluation of leaking from around her Montalvo catheter and suprapubic fullness. This catheter was placed following a recent diagnosis of necrotizing fasciitis for which she has undergone debridement and currently has a wound VAC in place. Comorbidities include hypertension, hyperlipidemia, diabetes, and morbid obesity. On initial evaluation of the patient they were resting comfortably in no acute distress and nontoxic in appearance. They are hemodynamically stable, saturating well room air, and are neurologically intact. On physical examination the patient's wound VAC is in place. She asked that I not remove the wound VAC, but I am able to examine the entirety of the wound borders which appear to be well-healing granulation tissue without evidence of purulence or streaking erythema. I have low concern for infection at this time. She does have a Montalvo catheter in place with leakage from around the Montalvo catheter Parental diagnosis includes Montalvo catheter obstruction, Montalvo catheter dislodgment, urinary tract infection, among others. We remove the Montalvo catheter and replace this with a new 1. We collected a urine sample from the new Montalvo catheter in order to obtain a clean urine sample. Urinalysis was personally interpreted by me and demonstrates 3+ leukocyte esterase with 20-50 white blood cells and 1+ bacteria. I do feel that this is still consistent with a urinary tract infection. We treated the patient with Levaquin during her last visit, and this obviously did not resolve her urinary tract infection. Today we will trial her on a course of cefdinir to see if this resolves her urinary tract infection. I have explained this plan to the patient and she acknowledges understanding. At this time all questions have been answered and all parties are agreeable with the decision to discharge home Critical Care Critical Care Time Critical Care Time: No
[2025-08-20 23:32] VITALS: BP 138/78; PULSE 100; RESP 20; TEMP 36.9; O2SAT 95
--- NOTE | 2025-08-23 09:27 | PC.NURSE ---
Per urine culture results, patient needs fluconazole. Spoke with patient, she is currently having back pain, so will need 400 mg daily x 14 days. Relayed this information to patient, confirmed pharmacy. Patient verabalized understanding. Prescription called in to [facility].
== END 2025-08-20 23:38 | disposition home or self-care (01) ==
PROVIDERS: Emergency Provider Student in an Organized Health Care Education/Training Program
DX: R10.30 Lower abdominal pain, unspecified (principal); N39.0 Urinary tract infection, site not specified; T83.091A Other mechanical complication of indwelling urethral catheter, initial encounter; Z46.6 Encounter for fitting and adjustment of urinary device
CPT/HCPCS: 51702; 81001; 87086; 99284

== ENCOUNTER 2025-09-20 13:52 | Outpatient (CLI) | payer OTHER, SELFPAY ==
[2025-09-20] MEDS: IPRATROPIUM/ALBUTEROL 3 ML NEB IH (15:32)
== END 2025-09-20 23:59 | disposition home or self-care (01) ==
LOC: RT 13:52
PROVIDERS: PCP Nurse Practitioner Family; Visit Provider Internal Medicine Pulmonary Disease
DX: J45.40 Moderate persistent asthma, uncomplicated (principal); R94.2 Abnormal results of pulmonary function studies
CPT/HCPCS: 94060; 94618; 94726; 94729

== ENCOUNTER 2025-09-26 20:25 | Emergency (ER) | payer OTHER, SELFPAY ==
--- OUTSIDE RECORDS SUMMARY | 2024-06-01 09:00 | XMS_ITS | Encounter Summary ---
Author Organization [employer] ([place], [place], [place], [place], [place]) Address [address] [place] [address] Care Team Providers Care Kayaking Instructor Name Role Phone Yenny Dhillon APRN Primary Care Provider [phone] Encounter Details Date Type Department Care Team (Late st Contact Info) Description 06/01/2024 10:00 AM EDT Hospital Encounter Sue Jolly MD [address] [place] [address] [address] [place] [address] Social History Tobacco Use Types Packs/Day Years Used Date Smoking Tobacco: Every Day Cigarettes Smokeless Tobacco: Never Alcohol Use Standard Drinks/Week Comments Yes 0 (1 standard drink = 0.6 oz pur e alcohol) Family and Community Support Answer Romel e Recorded Help with Day to Day Activities Not on file 12/23/2023 Feeling Lonely or Isolated Not on file 12/23 Educational Attainment Answer Date Franko rded Speak language other than Turkish at home Not on file 12/23/2023 Want help with school or training Not on file 12/23/2023 Substance Use Answer Date Recorded Used prescription meds for non-medical reasons N ot on file 12/23/2023 Used illegal drugs past 12 months Not on file 12/23/2023 Comments Unknown Sex and Gender Information Value Date Recorded Sex Assigned at Not on file 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 [address] [place] [address] 09/30/2025 1:00 PM EST Clinical Support [facility] [address] [place] [address] 10/02/2025 1:00 PM EST Office Visit [address] [address] Sukhdev Bazan Jr., MD [address] [place] [id number] 10/07/2025 10:15 AM EST Clinical Support [facility] [address] [place] [address] 10/09/2025 2:20 PM EST Office Visit [address] [address] Sukhdev Bazan Jr., MD [address] [place] [address] 10/11/2025 10:15 AM EST Clinical Support [facility] [address] [place] [id number] documented as of this encounter Visit Diagnoses Not on filedocumented in this encounter Care Teams Kayaking Instructor Relationship Specialty Start Date End Date Yenny Dhillon, UNDERWRITING SUPPORT SPECIALIST [address] [place] [address] PCP - General Nurse Practitioner 03/13/24 documented as of this encounter
--- OUTSIDE RECORDS SUMMARY | 2025-08-03 16:34 | XMS_ITS | Encounter Summary ---
Author Organization Healthcare Address [address] [place] [address] Care Team Providers Care Pesticide Applicator Name Role Phone Yenny Dhillon APRN Primary Care Provider [phone] Reason for Visit * Reason Comments Wound Check Encounter Details Date Type Department Care Team ([facility] st Contact Info) Description 08/03/2025 5:34 PM EDT - 08/03/2025 9:28 PM EDT Emergency [facility] Emergency Department [address] [place] [address] Luis Cotto MD [address] [place] [address] Necrotizing fasciitis (CMS/HCC) (Primary Dx); Encounter for management of wound VAC Discharge Disposition: Home or Self Care Social History Tobacco Use Types Packs/Day Years [...] time in the past 12 m [facility], were you homeless or living in a senior care (including now)? No 07/15/2025 [facility] Utilities Answer Date Recorded In the past 12 months has th e [employer], gas, oil, or water company threatened to [...] Sign Reading Time Taken Comments Blood Pressure 119/75 08/03/2025 5:15 PM EDT Pulse 117 08/03/2025 5:15 PM EDT Temperature 37.2 C (98.9 F) 08/03/2025 5:15 PM EDT Respiratory Rate 16 08/03/2025 5:15 PM EDT Oxygen Saturation 97% 08/03/2025 5:44 PM EDT Inhaled Oxygen Concentration - - Weight 161 kg (356 lb) 08/03/2025 5:15 PM EDT Height - - Body Mass Index 51.08 07/09/2025 7:20 PM EDT documented in this encounter Functional Status * Calculated C-SSRS Risk Score (Lifetime/Recent) Answer Date of Assessment Author No Risk Indicated 08/03/2025 5:44 PM EDT Brittany Massey RN * Question Answer Date of Assessment Author 1. Wish to be (Past 1 Month) No 025 5:44 PM EDT Brittany Massey RN 2. Non-Specific Active Suici silvia Thoughts (Past 1 Month) No 08/03/2025 5:44 PM EDT Annie Massey RN 6. Suicidal Behavior (Lifetime) No 5:44 PM EDT Brittany Massey RN documented as of this encounter Discharge Instructions * Discharge Instructions* Marilee Hernandez MD - 08/03/2025 9:17 PM EDT You were seen today for your wound VAC issue. The surgery team has a addressed this. Continue to follow up with them outpatient. documented in this encounter Medications at Time [...] Take 1 tablet by mouth daily. 06/20/2023 documented as of this encounter Miscellaneous Notes * ED Notes - Brittany Toledo RN - 08/03/2025 9:28 PM EDT Pt discharged by this RN, all questions and concerns addressed by this RN. Pt ambulated out of the ER with a steady gait. * Procedures - Naomi Morin MD - 08/03/2025 9:28 PM EDTAssociated Order(s): Wound Care Infection Right;Upper;Inner Leg Necrotizing Tissue Post-Procedure Diagnose(s): Necrotizing fasciitis (CMS/HCC) Wound Care Infection Right;Upper;Inner Leg Necrotizing Tissue Date/Time: 08/03/2025 8:40 PM Performed by: Naomi Morin MD Authorized by: Ghanshyam Gray DO Associated wounds: Wound 07/08/25 Infection Necrotizing Tissue Leg Right;Upper;Inner Consent: Consent obtained: Verbal Consent given by: Patient and spouse Risks, benefits, and alternatives were discussed: yes Risks discussed: Bleeding, pain, poor cosmetic result, infection, nerve damage and incomplete drainage Lyons protocol: Patient identity confirmed: Verbally with patient Procedure details: Indications: open wounds Wound location: Leg Leg location: R upper leg Wound age (days): >14 Dressing: Packing/drain action: packing change Packing material: Iodoform 1/2 inch Dressing applied: Gelfoam large Post-procedure details: Procedure completion: Tolerated Comments: Wound vac replaced with 5 pieces total - to patient's home vac and canister Cosigned by Ghanshyam Gray DO at 08/07/2025 6:19 AM EDT Associated attestation - Ghanshyam Gray DO - 08/07/2025 6:19 AM EDT Signature only. * Assessment & Plan Note - Naomi Morin MD - 08/03/2025 9:17 PM EDT Associated Problem(s): Necrotizing fasciitis (CMS/HCC) S/p debridement with SGE initially on 07/08/25 Improvement with wound care and wound vac Wound vac replaced in ED * H&P - Naomi Morin MD - 08/03/2025 6:18 PM EDTAssociated Order(s): Consult to Emergency General Surgery Images from the original note were not included. Reason for Consultation: wound vac supplies Requesting Service: Emergency Department Consult to Emergency General Surgery Consult performed by: Naomi Morin MD Consult ordered by: Luis Cotto MD History Of Present Illness Ashley Brown is a 50 y.o. female with history of NSTI s/p debridements, T2DM, hidradenitis suppurativa, tobacco use, recurrent UTI's, presenting to [facility] on 08/03/2025 with need for a wound vac exchange. She reports that she ran out of supplies and does not have her wound appointment until Tuesday. Surgical course for NSTI as follows: - 07/08/25: initial debridement - 07/10/25: take back for debridement - 07/11/25: wound vac placement - 07/14/25: partial closure and re-debridement of wound History Obtained From: Patient/Family Past Medical History She has a past medical history of Anxiety, Asthma, Carpal tunnel syndrome, Depression, Diabetes ([facility]), H/O absence seizures, Hidradenitis, High cholesterol, Hypertension, Pharyngitis (08/31/23), Postoperative pain (07/13/2025), Sleep apnea, and Smoker. Reviewed as documented [...] stated above in HPI. Last Recorded Vitals Blood pressure 119/75, pulse 117, temperature 37.2 ??C (98.9 ??F), temperature source Oral, resp. rate 16, weight 161 kg (356 lb), SpO2 97%. Physical Exam Vitals reviewed. Constitutional: General: She is not in acute distress. HENT: Head: Normocephalic and atraumatic. Right Ear: External ear normal. Left Ear: External ear normal. Nose: Nose normal. Mouth/Throat: Mouth: Mucous membranes are moist. Pharynx: Oropharynx is clear. Eyes: Extraocular Movements: Extraocular movements intact. Conjunctiva/sclera: Conjunctivae normal. Pupils: Pupils are equal, round, and reactive to light. Cardiovascular: Rate and Rhythm: Normal rate and regular rhythm. Pulses: Normal pulses. Heart sounds: Normal heart sounds. Pulmonary: Effort: Pulmonary effort is normal. No respiratory distress. Abdominal: General: Abdomen is flat. There is no distension. Palpations: Abdomen is soft. Tenderness: There is no abdominal tenderness. Musculoskeletal: Comments: Large right thigh wound with clear margins, no purulent drainage, erythema or swelling Skin: General: Skin is warm. Capillary Refill: Capillary refill takes less than 2 seconds. Neurological: General: No focal deficit present. Mental Status: She is alert and oriented to person, place, and time. Recent Results Labs in last 18 hours [...] ?? Bili ?? Alb ?? D.Bili ?? Assessment & Plan Necrotizing fasciitis (CMS/HCC) S/p debridement with SGE initially on 07/08/25 Improvement with wound care and wound vac Wound vac replaced in ED Encounter for management of wound VAC Replaced in ED Non-Hospital Problems Carpal tunnel syndrome Chronic obstructive pulmonary disease, unspecified (CMS/HCC) (Chronic) Overview Addendum 07/11/2025 9:23 AM by Gabriel Segovia - Complicates care. - Continue Albuterol and DuoNebs. -Pulm toilet ordered on 07/11 - On high flow O2 70%, will plan to wean as tolerated - Monitor respiratory status clinically Dehydration Hidradenitis suppurativa History of hysterectomy HTN (hypertension), benign (Chronic) Overview Addendum 07/11/2025 9:29 AM by Gabriel Segovia -Pt still requiring pressure support on 07/11 -Resume home medications as appropriate. Depression (Chronic) Overview Addendum 07/11/2025 9:31 AM by Gabriel Segovia - Resume home Duloxetine. Morbid (severe) obesity due to excess calories (CMS/HCC) (Chronic) Overview Addendum 07/11/2025 9:31 AM by Gabriel Segovia - Complicates care. - Counseling when appropriate. Marijuana smoker Smoker (Chronic) Overview Signed 07/09/2025 3:05 PM by Lidia Ellis MD - Patient smokes 0.5-1ppd. - Smoking cessation when appropriate. Type 2 diabetes mellitus Overview Signed 08/31/2023 9:36 AM by Janell Bueno Last Assessment & Plan: Condition: stable Discussed glucose control targets. Educated on: Lifestyle changes Follow up in: three months with PCP Vitamin D deficiency Overview Signed 08/31/2023 9:36 AM by Janell Bueno Last Assessment & Plan: Condition: stable Follow up in: three months Wound dehiscence Urge incontinence (Chronic) Stress incontinence DM (diabetes mellitus) ([facility]) (Chronic) Overview Addendum 07/09/2025 4:11 PM by iLdia Ellis MD - Patient hyperglycemic, up to 300s. - Insulin drip per protocol. Hidradenitis (Chronic) Absence seizure ([facility]) (Chronic) Overview Addendum 07/11/2025 9:20 AM by [...] - Improving, continue to monitor Septic shock ([facility]) Overview Addendum 07/12/2025 1:55 PM by [...] Andre MD On 6 L NC, smoker Necrotizing fasciitis ([facility]) Overview Addendum 07/12/2025 1:54 PM by Gabriel [...] cultures. - Dressing changes at bedside daily Dispo: Per the Emergency Department CODE STATUS: full code This Consult, Assessment, and Plan has been discussed with Dr. Gray, Attending Physician Naomi Morin MD [1] Family History Problem Relation Name Age of Onset Hypertension Mother COPD Mother Heart failure Mother Diabetes Mother Kidney cancer Mother Other (enlarge liver) Mother Hyperlipidemia Mother Lung cancer Father [2] No current facility-administered medications for this encounter. Current Outpatient Medications Medication Sig Dispense Refill acetaminophen (Tylenol) 500 MG tablet Take 2 tablets by mouth every 6 hours. budesonide-formoterol (Symbicort) 160-4.5 MCG/ACT inhaler Inhale 2 puffs 2 times a day. busPIRone (Buspar) 15 MG tablet Take 1 tablet by mouth 3 times a day. cholecalciferol (Vitamin D-3) 5,000 Units tablet Take 1 tablet by mouth daily. DULoxetine (Cymbalta) [address] capsule Take 1 capsule by mouth daily. Do not crush or chew. fluticasone (Flonase) 50 MCG/ACT nasal spray Administer 1 spray into each nostril 2 times a day. folic acid (Folvite) 1 MG tablet Take 1 tablet by mouth 1 time each day. insulin glargine-yfgn 100 UNIT/ML injection vial Inject 10 Units under the skin nightly. insulin lispro (Admelog) 100 UNIT/ML injection Inject 0-5 Units under the skin 3 times a day with meals. See After Visit Summary for instructions on how to take your insulin. insulin lispro (Admelog) 100 UNIT/ML injection Inject 0-3 Units under the skin 2 times a night. SeeAfter Visit Summary for instructions on how to take your insulin. lamoTRIgine (LaMICtal XR) 100 mg tablet sustained-release 24 hour 24 hr tablet Take 1 tablet by mouth daily. Linzess 72 MCG capsule capsule Take 1 capsule by mouth daily before breakfast. loratadine (Claritin) 10 MG tablet Take 1 tablet by mouth daily. methocarbamol (Robaxin) 750 MG tablet Take 1 tablet by mouth 3 times a day. metoprolol succinate XL (Toprol-XL) 100 MG 24 hr tablet Take 1 tablet by mouth daily. Do not crush or chew. montelukast (Singulair) 10 MG tablet Take 1 tablet by mouth daily. naloxone (Narcan) 4 mg/0.1 mL nasal spray 1. Give 1 spray in nostril for no/slow breathing or cannot wake after opioid use 2. Call 911 3. Repeat in other nostril if symptoms continue 1 each 0 naproxen (Naprosyn) 500 MG tablet Take 1 tablet by mouth 2 times a day with meals. Nutritional Supplements (Jose) pack Take 1 Package by mouth 2 times a day with meals. oxyCODONE (Roxicodone) 10 MG immediate release tablet Take 1 tablet by mouth every 6 hours as needed for severe pain. oxyCODONE (Roxicodone) 5 MG immediate release tablet Take 1 tablet by mouth Q MWF. polycarbophil (EQ Fiber Therapy) 625 MG tablet Take 1 tablet by mouth daily. polyethylene glycol (Miralax) 17 g packet Take 17 g by mouth daily. rosuvastatin (Crestor) 20 MG tablet Take 1 tablet by mouth daily. senna-docusate (Leann-Colace) 8.6-50 MG tablet Take 1 tablet by mouth 2 times a day. [Paused] valsartan-hydroCHLOROthiazide (Diovan-HCT) 320-12.5 MG tablet Take 1 tablet by mouth 1 time each day. Vitamin E 180 MG (400 UNIT) capsule Take 1 tablet by mouth daily. Cosigned by Ghanshyam Gray DO at 08/07/2025 6:19 AM EDT Associated attestation - Ghanshyam Gray DO - 08/07/2025 6:19 AM EDT I saw and evaluated the patient with the resident/fellow. I discussed the case with the resident/fellow and agree with the findings and plan as documented. * ED Provider Notes - Izzy Jimenes MD - 08/03/2025 5:11 PM EDT - HPI Chief Complaint Patient presents with Wound Check PIT Note Ashley Brown is a 50 y.o. female who presents to ED with Wound Check. Pt c/o wound vac issue secondary to recent surgery. Pt states her wound vac came out on and she has been unable to stop the drainage. Pt notes she talked to the surgeon and they suggested to come to the ED to have a new wound vac placed. Patient denies fever, chills, cough, chest pain, shortness of breath, nausea, vomiting, and diarrhea. Main ED: I Trinh Jimenes MD agree with the above PIT documentation. I personally performed my own history, physical exam, and medical decision making. Additional history obtained to be listed in ED Course. History provided by: Patient wallpaper printer helper used: No Patient History Past Medical History[1] Surgical History[2] Family History[3] Social History[4] Allergies: Allergies[5] Physical Exam ED Triage Vitals [08/03/25 1715] Temp Heart Rate Resp BP 37.2 ??C (98.9 ??F) 117 16 119/75 SpO2 Temp Source Heart Rate Source Patient Position 97 % Oral -- Sitting BP Location FiO2 (%) Right arm -- Physical Exam Constitutional: General: She is not in acute distress. HENT: Head: Normocephalic. Comments: No facial swelling Mouth/Throat: Mouth: Mucous membranes are moist. Pharynx: Oropharynx is clear. Cardiovascular: Rate and Rhythm: Tachycardia present. Pulmonary: Effort: Pulmonary effort is normal. No respiratory distress. Breath sounds: Normal air entry. Comments: Speaking full sentences. Symmetric chest rise Abdominal: General: There is no distension. Musculoskeletal: General: No deformity. Normal range of motion. Cervical back: Normal range of motion. Comments: Atraumatic, moves all extremities spontaneously Skin: Comments: Large wound noted to right thigh Neurological: Mental Status: She is alert. Mental status is at baseline. Comments: Awake Psychiatric: Behavior: Behavior normal. [place] Coma Scale Score: 15 ED Course & MDM - Assessment: Please see the ED course for a more detailed summary. 50 y.o. female presents to ED with complaint of wound vac replacement. It should be noted that the chronic conditions includes DM, hidradenitis supparativa, current smoker (1.5 ppd), hx of absent seizures, UTI, depression, anxiety, asthma, HLD, celiac disease , which currently is not at goal therapy. This complicates the clinical picture because it Comorbidities: may be exacerbating symptoms, increases the amount and complexity of data to be reviewed, and complicates the clinical workup Differential Diagnosis: Differential diagnosis includes but is not limited to cellulitis, abscess, cyst, lymphadenopathy, reactive lymph node, pyomyositis, necrotizing soft tissue infection, lymphangitis, erysipelas, toxic shock syndrome, and osteomyelitis. In order to fully explore the differential diagnosis the following treatments and tests were ordered: All Other Orders Ordered Status Ordering Provider 08/03/251811 Consult to Emergency General Surgery Once Provider: (Not yet assigned) IZZY Rust ED Course as of 08/03/25 1840 Sat Aug 03, 2025 182 Upon initial evaluation, patient is well-appearing and in no acute distress. Patient is hemodynamically stable, saturating well on room air, and grossly without neurological deficits. Picture of wound in chart. Patient going through about 2-4 canisters a day from her wound vac. her vac fell off. Since then she is having to repack her wound every three days. Here for woundvac replacement. Denies fever, nausea, vomiting, increase in pain or drainage. [PA] 1826 At this time I had an interactive discussion with Emergency General Surgery to evaluate the ptin the ED due to wound vac replacement. and for further evaluation and recommendations for management [PA] ED Course User Index [PA] Izzy Jimenes MD Social Determinates of Health Risks (including Economic Stability, Education and level of understanding, Healthcare access and quality and concerning social factors): Social factors impacting patient's psychosocial well-being Ultimately, this patient was was signed out to the oncoming provider (Signed Out) Patient care assumed by oncoming provider, Mary, at shift change, tentative plan at the time of sign-out was surgery to replace wound vac ED Prescriptions None - PIT Date: 08/03/2025 Scribe Attestation: This note was dictated to me, Carlton Thornton, acting as a scribe for Dr. Lamin Carrasquillo MD. Attending Attestation: The documentation was recorded by Carlton Thornton acting as scribe in my presence at the time of the encounter and accurately reflects the service I personally performed. [1] Past Medical History: Diagnosis Date Anxiety Asthma Carpal tunnel syndrome Depression Diabetes (CMS/HCC) H/O absence seizures Hidradenitis High cholesterol Hypertension Pharyngitis 08/31/23 Postoperative pain 07/13/2025 Sleep apnea Smoker [2] [...] in the comment field Makes her mean Izzy Jimenes MD Resident 08/03/25 1840 Cosigned by Luis Cotto MD at 08/03/2025 7:32 PM EDT Associated attestation - Luis Cotto MD - 08/03/2025 7:32 PM EDT I saw and evaluated the patient with the resident/fellow. I discussed the case with the resident/fellow and agree with the findings and plan as documented. * ED Triage Notes - Faina Crowder RN - 08/03/2025 5:11 PM EDT Pt arrives to ED stating she needs her wound vac reattached, pt has a wound to her right leg and stated the wound vac fell off on night and they are having trouble getting the drainage undercontrol. * Progress Notes - Marilee Hernandez MD - 08/03/2025 5:11 PM EDT Images from the original note were not included. ED TRANSFER OF CARE NOTE Transferring provider: Izzy Jimenes MD Transferring attending: meena RAYRAY Time: 1700 I received sign-out and accepted care of this patient from the previous ED providers caring for this patient. I reviewed the patient's history, exam, work- up, and treatment plan up to this point. Please see the primary ED Provider Note for complete elements of the history, physical exam, and ED course. PERTINENT HISTORY: In brief, Ashley Brown is a 50 y.o. female with relevant PMH nc fasc who presented to the ED for evaluation of wond vac issue. PENDING: I accepted care of this patient from the previous provider while waiting for evaluation and/or recommendations from: General Surgery. Ultimately, the aforementioned service recommended outpatient follow up ED COURSE: ED Course as of 08/03/252116 Sat Aug 03, 2025 182 Upon initial evaluation, patient is well-appearing and in no acute distress. Patient is hemodynamically stable, saturating well on room air, and grossly without neurological deficits. Picture of wound in chart. Patient going through about 2-4 canisters a day from her wound vac. her vac fell off. Since then she is having to repack her wound every three days. Here for woundvac replacement. Denies fever, nausea, vomiting, increase in pain or drainage. [PA] 1826 At this time I had an interactive discussion with Emergency General Surgery to evaluate the ptin the ED due to wound vac replacement. and for further evaluation and recommendations for management [PA] ED Course User Index [PA] Izzy Jimenes MD Clinical Impressions as of 08/03/252116 Necrotizing fasciitis (CMS/HCC) Encounter for management of wound VAC Ultimately, this patient Was discharged Home (Discharge) The primary encounter diagnosis was Necrotizing fasciitis (CMS/HCC). A diagnosis of Encounter for management of wound VAC was also pertinent to this visit. . Patient was counseled on the diagnoses. Discharge medications if any are listed below. Listed medications are thought be either curative for listed diagnoses or will help control ongoing symptoms. Patient is requested to follow up with Patient's Primary Care Provider and General Surgery in order to obtain routine follow-up and specialty care. Instructions on follow up as well as precautions to return to the ER provided verbally by the EM provider, as well as written in patients discharge education packet. ED Prescriptions None Discharge Instructions You were seen today for your wound VAC issue. The surgery team has a addressed this. Continue to follow up with them outpatient. Disposition Discharge - Marilee Hernandez MD Cosigned by Luis Cotto MD at 08/06/2025 1:20 AM EDT Associated attestation - Luis Cotto MD - 08/06/2025 1:20 AM EDT I saw and evaluated the patient with the resident/fellow. I discussed the case with the resident/fellow and agree with the findings and plan as documented. documented in this encounter Plan of Treatment Upcoming Encounters Date Type Department Care Team (Late st Contact Info) Description 09/30/2025 10:20 AM EST Office Visit [facility] [address] [place] [address] Marj Matamoros, SWEDGER [address] [place] [address] 11/19/2025 8:20 AM EST Office Visit [facility] Urology [address] [facility] [place] [address] Marj Matamoros, SWEDGER [address] [place] [address] documented as of this encounter Procedures Procedure Name Priority Date/Time Associated Diagnosis Comments WOUND CARE Routine 08/03/2025 8:40 PM EDT Necrotizing fasciitis (CMS/HCC) documented in this encounter Results * Wound Care Infection Right;Upper;Inner Leg Necrotizing Tissue (08/03/2025 8:40 PM EDT) Narrative Ghanshyam Gray DO - 08/03/2025 8:40 PM EDT Ghanshyam Gray DO 08/07/2025 6:19 AM Wound Care Infection Right;Upper;Inner Leg Necrotizing Tissue Date/Time: 08/03/2025 8:40 PM Performed by: Naomi Morin MD Authorized by: Ghanshyam Gray DO Associated wounds: Wound 07/08/25 Infection Necrotizing Tissue Leg Right;Upper;Inner Consent: Consent obtained: Verbal Consent given by: Patient and spouse Risks, benefits, and alternatives were discussed: yes Risks discussed: Bleeding, pain, poor cosmetic result, infection, nerve damage and incomplete drainage Lyons protocol: Patient identity confirmed: Verbally with patient Procedure details: Indications: open wounds Wound location: Leg Leg location: R upper leg Wound age (days): >14 Dressing: Packing/drain action: packing change Packing material: Iodoform 1/2 inch Dressing applied: Gelfoam large Post-procedure details: Procedure completion: Tolerated Comments: Wound vac replaced with 5 pieces total - to patient's home vac and canister Ghanshyam Gray DO IN CLINIC/BEDSIDE ORDERABLES F inal Result documented in this encounter Visit Diagnoses Diagnosis Necrotizing fasciitis (CMS/HCC)- Primary Necrotizing fasciitis Encounter for management of wound VAC documented in this encounter Additional Health Concerns Assessment Noted Time PHQ-9 Depression Total Score: 16 023 9:36 AM EDT A fall risk assessment has been complete d for the patient 08/31/2023 9:38 AM EDT A Body Mass Index follow-up plan has been documented for the patient 07/19/2025 10:51 AM EDT documented as of this encounter Care Teams Pesticide Applicator Relationship Specialty Start Date End Date Yenny Dhillon APRN [address] [place] [address] PCP - General 07/22/23 documented as of this encounter
--- OUTSIDE RECORDS SUMMARY | 2025-08-05 12:10 | XMS_ITS | Encounter Summary ---
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) Procedures Wound Treatment Sukhdev Bazan Jr., MD [address] [place] [id number] Phone: tel: fax: Referral ID Status Reason Start Date Expiration Date V isits Requested Visits Authorized [id number] New Request 08/05/2025 08/05/2026 1 1 Reason for Visit * Reason Comments Wound Care Encounter Details Date Type Department Care Team (Late st Contact Info) Description 08/05/2025 1:10 PM EDT Office Visit [facility] [address] [place] [id number] Sukhdev Bazan Jr., MD [address] [place] [phone] 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) (Primary Dx); Localized tissue (HCC); Other specified local infections of the skin and subcutaneous tissue; Diabetes mellitus with skin ulcer (HCC) Social History Tobacco Use Types Packs/Day Years Used Date Smoking Tobacco: Every Day Cigarettes Smokeless Tobacco: Never Tobacco Cessation:Ready to Q uit: No; Counseling Given: Yes Alcohol Use Standard Drinks/Week Comments Yes 0 (1 standard drink = 0.6 oz pur e alcohol) Family and Community Support Answer Romel e Recorded Help with Day to Day Activities Not on file 12/23/2023 Feeling Lonely or Isolated Not on file 12/23 Educational Attainment Answer Date Franko rded Speak language other than Taiwanese at home Not on file 12/23/2023 Want help with school or training Not on file 12/23/2023 Substance Use Answer Date Recorded Used prescription meds for non-medical reasons N ot on file 12/23/2023 Used illegal drugs past 12 months Not on file 12/23/2023 Comments Unknown Sex and Gender Information Value Date Recorded Sex Assigned at Not on file 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 Gender Identity Not on file Sexual Orientation Not on file documented as of this encounter Last Filed Vital Signs Vital Sign Reading Time Taken Comments Blood Pressure 147/103 08/05/2025 2:16 PM EDT Pulse 129 08/05/2025 2:16 PM EDT Temperature 36.2 C (97.1 F) 08/05/2025 2:16 PM EDT Respiratory Rate 16 08/05/2025 2:16 PM EDT Oxygen Saturation - - Inhaled Oxygen Concentration - - Weight - - Height - - Body Mass Index - - documented in this encounter Patient Instructions * Patient Instructions* Paola Jeffries RN - 08/05/2025 1:10 PM EDT Remove wound vac if it stops working for more than 2 hours and cover with Vashe moistened gauze until you are able to go to the ER signs and symptoms of infection to include: Increased redness, warmth or drainag with odor, or fever. call wound center for any concerns Call 911 or go to the ER with an emergency documented in this encounter Progress Notes * Paola Jeffries RN - 08/05/2025 1:10 PM EDT Images from the original note were not included. Attached media from the original note were not included. 08/05/25 1437 Wound 08/05/25 Soft Tissue Necrosis Leg upper Anterior;Right;Medial Date First Assessed/Time First Assessed: 08/05/25 1433 Present on Original Admission: Yes Wound Approximate Age at First Assessment (Weeks): 4 weeks Primary Wound Type: Soft Tissue Necrosis Location:Leg upper Wound Location Orientation: Anterio... Wound Image Images linked Site Assessment Granulation;Sloughing Leann-Wound Assessment Scarred;Swollen (inflammed) Wound Length (cm) 14 cm Wound Width (cm) 49.5 cm Wound Surface Area (cm^2) 544.28 cm^2 Undermining 7 cm Undermining Clock Position of Wound 11 Undermining Clock Position End of Wound 2 Undermining 2 7 cm Undermining Clock Position of Wound 2 3 Undermining Clock Position End of Wound 2 5 Margins Well-defined edges Drainage Description Serosanguineous Drainage Amount Copious Odor None Wound Bed Granulation (%) 80 % Wound Bed Slough (%) 20 % Non-staged Wound Description Full thickness * Sukhdev Bazan Jr., MD - 08/05/2025 1:10 PM EDTAssociated Order(s): Debridement Subjective 08/05/25 - CJA -this is a 50-year-old female with a past medical history of diabetes type II, hidradenitis suppurativa, epilepsy, depression, anxiety, asthma, celiac disease who is also a current smoker. Apparently patient had necrotizing fasciitis and was discharged from the [facility] on July 19, 2025 in regards to this. On July 08, and patient had right groin excisional debridement and multiple exploration and washouts of her right groin/perineum/thigh/abdominal wound. Patient apparently was admitted as septic shock prior to being stabilized with multiple surgical interventions and IV antibiotics. When patient was discharged it looks like her renal function had returned to normal. Patient was on insulin during her hospital stay but her outpatient hemoglobin A1c was 7.5 prior to admission. She states she is refusing to take insulin and is only back on her metformin. She reports that she has an appointment later this week with her primary care provider to discuss this further. Patient was discharged with a wound VAC to [facility] and recently got out of [facility]. She had a ER visit with a wound VAC change after it became loose 2 days ago. She states she is feeling 4 canisters a day. We will provide her some out of our stock for her [employer] VAC. She does have home health and we will get them these orders. Wound today presents with some sutures with little bit of necrosis and edema and erythema associated with them. The sutures were removed today. Patient is currently on ciprofloxacin for urinary tract infection. She has a Iqbal catheter. Counseled patient that she needs to speak with her primary care provider in regards to having this changed. At this time I do not detect any signs of infection such as odor or macerated tissue. I think the 1 area of concern on her right flank is just associated with irritation from sutures. A thorough and time-consuming debridement was medically necessary due to slough and other nonviable tissue present. We will get white foam into the undermined areas along the superior edge of the wound and the medial edge of the wound. Will use an Jose G rings to protect the periwound. Review of Systems Constitutional: Negative for fatigue and fever. Respiratory: Negative for shortness of breath. Skin: Positive for wound. Neurological: Negative for weakness. Objective Last Recorded Vitals Blood pressure (!) 147/103, pulse 129, temperature 97.1 ??F (36.2 ??C), temperature source Tympanic, resp. rate 16. Physical Exam Constitutional: Appearance: Normal appearance. Musculoskeletal: Right lower leg: No edema. Left lower leg: No edema. Skin: Findings: No erythema. Comments: Today wound violates both epidermis and dermis layers of skin, wound has exposed subcutaneous layer and fat layer is exposed. There are areas of necrotic tissue, localized gangrene tissue and biofilm present. Surgical removal of nonviable gangrenous tissue and biofilm infection material is medically necessary and needed to promote healing Neurological: General: No focal deficit present. Mental Status: She is alert and oriented to person, place, and time. Psychiatric: Mood and Affect: Mood normal. Behavior: Behavior normal. Judgment: Judgment normal. Labs: No results found for this visit on 08/05/25 (from the past 24 hours). No image results found. Ashley was seen today for wound care. 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 female. Debridement Wound 08/05/25 Soft Tissue Necrosis Leg upper Anterior;Right;Medial Performed by: Sukhdev Bazan Jr., MD Authorized by: Sukhdev Bazan Jr., MD Consent Consent obtained? written Consent given by: patient Risks discussed? procedural risks discussed Immediately prior to the procedure a time out was called and the performing provider verified the correct patient, procedure, equipment, support services tech, and site/side marked as required. Debridement Details Performed by: physician Debridement type: surgical Level of debridement: subcutaneous tissue Pain control: lidocaine 2% Pain control administration type: topical Pre-debridement measurements Length (cm): 14 Width (cm): 49.5 Depth (cm): 0.2 Surface Area (cm^2): 544.28 Post-debridement measurements Length (cm): 14.1 Width (cm): 49.5 Depth (cm): 0.5 Percent debrided: 75% Surface Area (cm^2): 548.17 Area Debrided (cm^2): 411.13 Volume (cm^3): 182.72 Tissue and other material debrided: adipose, dermis, epidermis and subcutaneous tissue Devitalized tissue debrided: biofilm and slough Instrument(s) utilized: curette Bleeding: small Hemostasis obtained with: pressure Procedural pain (0-10): 2 Post-procedural pain: 1 Response to treatment: procedure was tolerated well * Paola Jeffries RN - 08/05/2025 1:10 PM EDT - 4 black foams removed - 2 White foam, and 2 black foam applied Remove dressings. Clean wound with 0.9 % normal saline.. Apply 4 % or 5% topical lidocaine as needed for pain in clinic only Wound site- Right Groin Cleanse with Vashe Apply Skin protectant, Skin tac, and Eakins ring, and Vac drape to Leann-wound Incisional vac to previously sutured area of right side: Vac Dape, Mepitel, Black foam White foam to undermining of wound, Black foam over entire wound Change- 3x a week Patient tolerated procedures well POC: Return appt.- 1 week follow up Follow orders above for any non-provider visits IF DME ordered send supplies to fit size of wound Education: Patient educated on signs/symptoms of infection and to remove wound vac if wound vac stops working for more than 2 hours, cover with Vashe moistened gauze and go to the ER documented in this encounter Plan of Treatment Upcoming Encounters Date Type Department Care Team (Late st Contact Info) Description 09/27/2025 10:45 AM EST Clinical Support [facility] [address] [address] 09/30/2025 1:00 PM EST Clinical Support [address] [address] 10/02/2025 1:00 PM EST Office Visit [address] [address] Sukhdev Bazan Jr., MD [address] [place] [address] 10/07/2025 10:15 AM EST Clinical Support [address] [address] 10/09/2025 2:20 PM EST Office Visit [address] [address] Sukhdev Bazan Jr., MD [address] [place] [address] 10/11/2025 10:15 AM EST Clinical Support [facility] [address] [address] documented as of this encounter Procedures Procedure Name Priority Date/Time Associated Diagnosis Comments ME DEBRIDEMENT SUBCUTANEOUS TISSUE EA ADDL 20 SQ CM Routine 08/05/2025 1:10 PM EDT 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) Localized tissue (HCC) Other specified local infections of the skin and subcutaneous tissue ME DEBRIDEMENT SUBCUTANEOUS TISSUE EA ADDL 20 SQ CM Routine 08/05/2025 1:10 PM EDT 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) Localized tissue (HCC) Other specified local infections of the skin and subcutaneous tissue ME DEBRIDEMENT SUBCUTANEOUS TISSUE EA ADDL 20 SQ CM Routine 08/05/2025 1:10 PM EDT 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) Localized tissue (HCC) Other specified local infections of the skin and subcutaneous tissue ME DEBRIDEMENT SUBCUTANEOUS TISSUE EA ADDL 20 SQ CM Routine 08/05/2025 1:10 PM EDT 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) Localized tissue (HCC) Other specified local infections of the skin and subcutaneous tissue ME DEBRIDEMENT SUBCUTANEOUS TISSUE EA ADDL 20 SQ CM Routine 08/05/2025 1:10 PM EDT 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) Localized tissue (HCC) Other specified local infections of the skin and subcutaneous tissue ME DEBRIDEMENT SUBCUTANEOUS TISSUE EA ADDL 20 SQ CM Routine 08/05/2025 1:10 PM EDT 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) Localized tissue (HCC) Other specified local infections of the skin and subcutaneous tissue ME DEBRIDEMENT SUBCUTANEOUS TISSUE EA ADDL 20 SQ CM Routine 08/05/2025 1:10 PM EDT 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) Localized tissue (HCC) Other specified local infections of the skin and subcutaneous tissue ME DEBRIDEMENT SUBCUTANEOUS TISSUE EA ADDL 20 SQ CM Routine 08/05/2025 1:10 PM EDT 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) Localized tissue (HCC) Other specified local infections of the skin and subcutaneous tissue ME DEBRIDEMENT SUBCUTANEOUS TISSUE EA ADDL 20 SQ CM Routine 08/05/2025 1:10 PM EDT 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) Localized tissue (HCC) Other specified local infections of the skin and subcutaneous tissue ME DEBRIDEMENT SUBCUTANEOUS TISSUE EA ADDL 20 SQ CM Routine 08/05/2025 1:10 PM EDT 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) Localized tissue (HCC) Other specified local infections of the skin and subcutaneous tissue ME DEBRIDEMENT SUBCUTANEOUS TISSUE EA ADDL 20 SQ CM Routine 08/05/2025 1:10 PM EDT 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) Localized tissue (HCC) Other specified local infections of the skin and subcutaneous tissue ME DEBRIDEMENT SUBCUTANEOUS TISSUE EA ADDL 20 SQ CM Routine 08/05/2025 1:10 PM EDT 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) Localized tissue (HCC) Other specified local infections of the skin and subcutaneous tissue ME DEBRIDEMENT SUBCUTANEOUS TISSUE 1ST 20 SQ CM/< Routine 08/05/2025 1:10 PM EDT 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) Localized tissue (HCC) Other specified local infections of the skin and subcutaneous tissue documented in this encounter Results * ME DEBRIDEMENT SUBCUTANEOUS TISSUE 1ST 20 SQ CM/<, ME DEBRIDEMENT SUBCUTANEOUS TISSUE EA ADDL 20SQ CM, ME DEBRIDEMENT SUBCUTANEOUS TISSUE EA ADDL 20 SQ CM, ME DEBRIDEMENT SUBCUTANEOUS TISSUE EA ADDL 20 SQ CM, ME DEBRIDEMENT SUBCUTANEOUS TISSUE EA ADDL 20 SQ CM, ME DEBRIDEMENT SUBCUTANEOUS TISSUE EA ADDL 20 SQ CM, ME DEBRIDEMENT SUBCUTANEOUS TISSUE EA ADDL 20 SQ CM, ME DEBRIDEMENT SUBCUTANEOUSTISSUE EA ADDL 20 SQ CM, ME DEBRIDEMENT SUBCUTANEOUS TISSUE EA ADDL 20 SQ CM, ME DEBRIDEMENT SUBCUTANEOUS TISSUE EA ADDL 20 SQ CM, ME DEBRIDEMENT SUBCUTANEOUS TISSUE EA ADDL 20 SQ CM, ME DEBRIDEMENT S UBCUTANEOUS TISSUE EA ADDL 20 SQ CM, ME DEBRIDEMENT SUBCUTANEOUS TISSUE EA ADDL 20 SQ CM (08/05/2025 1:10 PM EDT) Sukhdev Cardoza Jr., MD - 08/05/2025 1:10 PM EDT Sukhdev Bazan Jr., MD 08/05/2025 6:32 PM Debridement Wound 08/05/25 Soft Tissue Necrosis Leg upper Anterior;Right;Medial Performed by: Sukhdev Bazan Jr., MD Authorized by: Sukhdev Bazan Jr., MD Consent Consent obtained? written Consent given by: patient Risks discussed? procedural risks discussed Immediately prior to the procedure a time out was called and the performing provider verified the correct patient, procedure, equipment, support services tech, and site/side marked as required. Debridement Details Performed by: physician Debridement type: surgical Level of debridement: subcutaneous tissue Pain control: lidocaine 2% Pain control administration type: topical Pre-debridement measurements Length (cm): 14 Width (cm): 49.5 Depth (cm): 0.2 Surface Area (cm^2): 544.28 Post-debridement measurements Length (cm): 14.1 Width (cm): 49.5 Depth (cm): 0.5 Percent debrided: 75% Surface Area (cm^2): 548.17 Area Debrided (cm^2): 411.13 Volume (cm^3): 182.72 Tissue and other material debrided: adipose, dermis, epidermis and subcutaneous tissue Devitalized tissue debrided: biofilm and slough Instrument(s) utilized: curette Bleeding: small Hemostasis obtained with: pressure Procedural pain (0-10): 2 Post-procedural pain: 1 Response to treatment: procedure was tolerated well us Sukhdev Bazan Jr., MD PROCEDURE/MINOR SURGICAL ORDERABLES Final Result documented in this encounter Visit Diagnoses Diagnosis 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
--- OUTSIDE RECORDS SUMMARY | 2025-08-07 12:00 | XMS_ITS | Encounter Summary ---
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) Social History Tobacco Use Types Packs/Day Years [...] Date Franko rded Speak language other than Greenlandic at home Not on file 12/23/2023 Want help with school or training Not on file 12/23/2023 Substance Use Answer Date Recorded Used prescription meds for non-medical reasons N ot on file 12/23/2023 Used illegal drugs past 12 months Not on file 12/23/2023 Comments Unknown Sex and Gender Information Value Date Recorded Sex Assigned at Not on file 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 Dressing removed as follows: Wound vac and drape, eakins, 5 black foam pieces and 2 white foam pieces Dressing applied per order as indicated below: Today in the nurse visit I used 3 black foam pieces and 2 white foam pieces Orders Placed This Encounter Procedures Wound Treatment Remove dressings. In clinic, clean wound with 0.9 % normal saline.. Apply 4 % or 5% topical lidocaine as needed for pain in clinic only Wound site- Right Groin Cleanse with Vashe prior to applying dressing. Apply Skin protectant Skin and Eakins ring to leann-wound. Window pane wound with Vac drape. Apply Mepitel to wound base. Apply White foam to areas of undermining. Apply black foam over entire wound. Incisional vac to previously sutured area of right side:Apply vac drape to leann- wound, cover with black foam. Secure all NPWT foam with wound drape. Change 3 times a week. Return appt.- 1 week follow up Follow orders above for any non-provider visits IF DME ordered send supplies to fit Standing Status: Standing Number of Occurrences: 6 Next Expected Occurrence: 08/07/2025 Expiration Date: 09/07/2025 * Adeola Jeffries - 08/07/2025 1:00 PM EDT Images from the original note were not included. Attached media from the original note were not included. 08/07/25 1353 Wound 08/05/25 Soft Tissue Necrosis Leg upper Anterior;Right;Medial Date First Assessed/Time First Assessed: 08/05/25 1433 Present on Original Admission: Yes Wound Approximate Age at First Assessment (Weeks): 4 weeks Primary Wound Type: Soft Tissue Necrosis Location:Leg upper Wound Location Orientation: Anterio... Wound Image Images linked Site Assessment Granulation;Sloughing Leann-Wound Assessment Scarred;Swollen (inflammed) Wound Length (cm) 14.5 cm Wound Width (cm) 49.5 cm Wound Surface Area (cm^2) 563.72 cm^2 Wound Depth (cm) 1.5 cm Wound Volume (cm^3) 563.719 cm^3 Undermining 6.5 cm Undermining Clock Position of Wound 11 Undermining Clock Position End of Wound 2 Undermining 2 7.5 cm Undermining Clock Position of Wound 2 2 Undermining Clock Position End of Wound 2 3 Margins Well-defined edges Wound Healing % -677 Drainage Description Serosanguineous Drainage Amount Large Wound Bed Granulation (%) 80 % Wound Bed Slough (%) 20 % Non-staged Wound Description Full thickness documented in this encounter Plan of Treatment Upcoming Encounters Date Type Department Care Team (Late st Contact Info) Description 09/27/2025 10:45 AM EST Clinical Support [facility] [place] [address] [place] [address] 09/30/2025 1:00 PM EST Clinical Support [facility] [place] [address] [place] [address] 10/02/2025 1:00 PM EST Office Visit [facility] Care [place] [address] [place] [address] Sukhdev Bazan Jr., MD [address] [place] [address] 10/07/2025 10:15 AM EST Clinical Support [facility] Care [place] [address] [place] [address] 10/09/2025 2:20 PM EST Office Visit [facility] 1 [place] [phone] Sukhdev Bazan Jr., MD [address] [place] [address] 10/11/2025 10:15 AM EST Clinical Support [facility] [place] [address] [place] [address] documented as of this encounter Visit Diagnoses Diagnosis 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
--- OUTSIDE RECORDS SUMMARY | 2025-08-09 09:45 | XMS_ITS | Encounter Summary ---
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) Social History Tobacco Use Types Packs/Day [...] Date Franko rded Speak language other than Malian at home Not on file 12/23/2023 Want help with school or training Not on file 12/23/2023 Substance Use Answer Date Recorded Used prescription meds for non-medical reasons N ot on file 12/23/2023 Used illegal drugs past 12 months Not on file 12/23/2023 Comments Unknown Sex and Gender Information Value Date Recorded Sex Assigned at Not on file 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 Dressing removed as follows: Wound vac and drape, eakins, 3 black foam, 2 white foam Dressing applied per order as indicated below: Today in clinic I used 3 black foam and 2 white foam In clinic, clean wound with 0.9 % [...] IF DME ordered send supplies to fit No orders of the defined types were placed in this encounter. * Adeola Jeffries - 08/09/2025 10:45 AM EDT Images from the original note were not included. Attached media from the original note were not included. 08/09/25 1135 Wound 08/05/25 Soft Tissue Necrosis Leg upper Anterior;Right;Medial Date First Assessed/Time First Assessed: 08/05/25 1433 Present on Original Admission: Yes Wound Approximate Age at First Assessment (Weeks): 4 weeks Primary Wound Type: Soft Tissue Necrosis Location:Leg upper Wound Location Orientation: Anterio... Wound Image Images linked Site Assessment Granulation;Sloughing Leann-Wound Assessment Scarred Wound Length (cm) 17 cm Wound Width (cm) 52 cm Wound Surface Area (cm^2) 694.29 cm^2 Wound Depth (cm) 3.5 cm Wound Volume (cm^3) 1620.013 cm^3 Undermining 6.3 cm Undermining Clock Position of Wound 11 Undermining Clock Position End of Wound 2 Undermining 2 7.7 cm Undermining Clock Position of Wound 2 2 Undermining Clock Position End of Wound 2 3 Margins Well-defined edges Wound Healing % -2132 Drainage Description Serosanguineous Drainage Amount Large Odor None Wound Bed Granulation (%) 80 % Wound Bed Slough (%) 20 % Non-staged Wound Description Full thickness documented in this encounter Plan of Treatment Upcoming Encounters Date Type Department Care Team (Late st Contact Info) Description 09/27/2025 10:45 AM EST Clinical Support [facility] [place] 1 [place] [address] 09/30/2025 1:00 PM EST Clinical Support [facility] [address] [address] 10/02/2025 1:00 PM EST Office Visit [facility] Care [address] [address] Sukhdev Bazan Jr., MD [address] [place] [address] 10/07/2025 10:15 AM EST Clinical Support [facility] 1 [place] [address] 10/09/2025 2:20 PM EST Office Visit [facility] [address] [address] Sukhdev Bazan Jr., MD [address] [place] [address] 10/11/2025 10:15 AM EST Clinical Support [facility] 1 [place] [address] documented as of this encounter Visit Diagnoses Diagnosis 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
--- OUTSIDE RECORDS SUMMARY | 2025-08-12 10:00 | XMS_ITS | Encounter Summary ---
Author Organization [employer] ([place], [place], [place], [place], [place]) Address [address] [place] [address] Care Team Providers Care Rehabilitation Worker Name Role Phone DhillonYenny whyte GLORIA Primary Care Provider [phone] Reason for Visit * Reason Comments Wound Care Encounter Details Date Type Department Care Team (Late st Contact Info) Description 08/12/2025 11:00 AM EDT Office Visit [facility] [address] [place] [address] Sukhdev Bazan Jr., MD [address] [place] [phone] Non-pressure chronic ulcer of skin of [...] Date Franko rded Speak language other than [place] at home Not on file 12/23/2023 Want help with school or training Not on file 12/23/2023 Substance Use Answer Date Recorded Used prescription meds for non-medical reasons N ot on file 12/23/2023 Used illegal drugs past 12 months Not on file 12/23/2023 Comments Unknown Sex and Gender Information Value Date Recorded Sex Assigned at Not on file 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 Gender Identity Not on file Sexual Orientation Not on file documented as of this encounter Last Filed Vital Signs Vital Sign Reading Time Taken Comments Blood Pressure 117/75 08/12/2025 11:26 AM EDT Pulse 120 08/12/2025 11:26 AM EDT Temperature 36.3 C (97.3 F) 08/12/2025 11:26 AM EDT Respiratory Rate 18 08/12/2025 11:26 AM EDT Oxygen Saturation - - Inhaled Oxygen Concentration - - Weight - - Height - - Body Mass Index - - documented in this encounter Patient Instructions * Patient Instructions* Daron Vann RN - 08/12/2025 11:00 AM EDT If wound vac fails, remove wound vac from wound and apply wet to dry dressing. Call clinic for further directions. Signs and symptoms of infection: Increased redness, increased warmth, increased drainage, or odor related to wound or fever. Call Wound center during business hours: [phone] or after hours, go to the ER documented in this encounter Progress Notes * Daron Vann RN - 08/12/2025 11:00 AM EDT Images from the original note were not included. Attached media from the original note were not included. 08/12/25 1147 Wound 08/05/25 Soft Tissue Necrosis Leg upper Anterior;Right;Medial Date First Assessed/Time First Assessed: 08/05/25 1433 Present on Original Admission: Yes Wound Approximate Age at First Assessment (Weeks): 4 weeks Primary Wound Type: Soft Tissue Necrosis Location:Leg upper Wound Location Orientation: Anterio... Wound Image Images linked Site Assessment Granulation;Sloughing Leann-Wound Assessment Scarred Wound Length (cm) 17 cm Wound Width (cm) 52.5 cm Wound Surface Area (cm^2) 700.97 cm^2 Wound Depth (cm) 3.5 cm Wound Volume (cm^3) 1635.59 cm^3 Undermining 5.9 cm Undermining Clock Position of Wound 11 Undermining Clock Position End of Wound 2 Undermining 2 7.3 cm Undermining Clock Position of Wound 2 2 Undermining Clock Position End of Wound 2 3 Margins Well-defined edges Wound Healing % -2153 Drainage Description Serosanguineous Drainage Amount Large Odor None Wound Bed Granulation (%) 88 % Wound Bed Slough (%) 20 % Non-staged Wound Description Full thickness * Sukhdev Bazan Jr., MD - 08/12/2025 11:00 AM EDTAssociated Order(s): Debridement Post-Procedure Diagnose(s): 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 Today the wound is improved and is less necrotic. Further sutures were removed. Debridement was medically necessary at the wound site today due to nonviable tissue present.Wound without any surrounding erythema induration odor nor periwound maceration. At this time I do not not feel like collagen is appropriate as wound is still draining way too much as patient is still going through 4 canisters a day. 08/05/25 - CJA -this is a 50-year-old female with a past medical history of diabetes type II, hidradenitis suppurativa, epilepsy, depression, anxiety, asthma, celiac disease who is also a current smoker. Apparently patient had necrotizing fasciitis and was discharged from the [facility] on July 19, 2025 in [...] was discharged with a wound VAC to [facility] and recently got out of [facility]. She had a ER visit with a [...] weakness. Objective Last Recorded Vitals Blood pressure 117/75, pulse 120, temperature 97.3 ??F (36.3 ??C), resp. rate 18. Physical Exam Constitutional: Appearance: Normal appearance. Musculoskeletal: [...] No results found for this visit on 08/12/25 (from the past 24 hours). No image results found. Ashley was seen today for wound care. 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 female. Debridement Wound 08/05/25 Soft Tissue Necrosis Leg upper Anterior;Right;Medial Performed by: Sukhdev Bazan Jr., MD Authorized by: Sukhdev Bazan Jr., MD Consent Consent obtained? written Consent given by: patient Risks discussed? procedural risks discussed Immediately prior to the procedure a time out was called and the performing provider verified the correct patient, procedure, equipment, direct support professional home health, and site/side marked as required. Debridement Details Performed by: physician Debridement type: surgical Level of debridement: subcutaneous tissue Pain control: lidocaine 2% Pain control administration type: topical Pre-debridement measurements Length (cm): 17 Width (cm): 52.5 Depth (cm): 3.5 Surface Area (cm^2): 700.97 Post-debridement measurements Length (cm): 17 Width (cm): 52.5 Depth (cm): 3.6 Percent debrided: 33% Surface Area (cm^2): 700.97 Area Debrided (cm^2): 231.32 Volume (cm^3): 1682.32 Tissue and other material debrided: adipose, dermis, epidermis and subcutaneous tissue Devitalized tissue debrided: biofilm, fibrin and slough Instrument(s) utilized: curette Bleeding: small Hemostasis obtained with: pressure Procedural pain (0-10): 2 Post-procedural pain: 1 Response to treatment: procedure was tolerated well * Daron Vann RN - 08/12/2025 11:00 AM EDT Patient in clinic for a follow up visit. Dressings removed. Orders for wound care followed as below: Remove dressings. Clean wound with 0.9 % normal saline. Apply 4 % or 5% topical lidocaine as neededfor pain in clinic only Wound site- Right Groin Cleanse with Vashe Apply Skin protectant, Skin tac, and Eakins ring, and Vac drape to Leann-wound Apply hydrofera blue ready to previously sutured area on the right side of wound. Mepitel (if needed). White foam to undermining areas of wound, Black foam over entire wound, vac drape. Set wound vac at 125mmHg continous. Change- 3x a week Return appt.- 1 week follow up Follow orders above for any non-provider visits Instructed pt/ caregiver on wound care and dressing changes. Instructed patient on signs and symptoms of infection to include: Increased redness, blue or cold extremity, increased warmth or drainage. Drainage with odor or pus or fever or aches and chills. Patient instructed to call wound center for any concerns. If after hours or weekend go to Urgent Treatment Center or Emergency Room. Patient tolerated procedures well. documented in this encounter Plan of Treatment Upcoming Encounters Date Type Department Care Team (Late st Contact Info) Description 09/27/2025 10:45 AM EST Clinical Support [facility] [address] [address] 09/30/2025 1:00 PM EST Clinical Support [address] [address] 10/02/2025 1:00 PM EST Office Visit [address] [address] Sukhdev Bazan Jr., MD [address] [place] [phone] 10/07/2025 10:15 AM EST Clinical Support [facility] [address] [address] 10/09/2025 2:20 PM EST Office Visit [address] [address] Sukhdev Bazan Jr., MD [address] [place] [phone] 10/11/2025 10:15 AM EST Clinical Support [facility] [address] [place] [phone] documented as of this encounter Procedures Procedure Name Priority Date/Time Associated Diagnosis Comments [place] DEBRIDEMENT SUBCUTANEOUS TISSUE EA ADDL 20 SQ CM Routine 08/12/2025 11:00 AM EDT 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) Localized tissue (HCC) Other specified local infections of the skin and subcutaneous tissue [place] DEBRIDEMENT SUBCUTANEOUS TISSUE EA ADDL 20 SQ CM Routine 08/12/2025 11:00 AM EDT 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) Localized tissue (HCC) Other specified local infections of the skin and subcutaneous tissue [place] DEBRIDEMENT SUBCUTANEOUS TISSUE EA ADDL 20 SQ CM Routine 08/12/2025 11:00 AM EDT 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) Localized tissue (HCC) Other specified local infections of the skin and subcutaneous tissue [place] DEBRIDEMENT SUBCUTANEOUS TISSUE EA ADDL 20 SQ CM Routine 08/12/2025 11:00 AM EDT 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) Localized tissue (HCC) Other specified local infections of the skin and subcutaneous tissue [place] DEBRIDEMENT SUBCUTANEOUS TISSUE EA ADDL 20 SQ CM Routine 08/12/2025 11:00 AM EDT 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) Localized tissue (HCC) Other specified local infections of the skin and subcutaneous tissue [place] DEBRIDEMENT SUBCUTANEOUS TISSUE EA ADDL 20 SQ CM Routine 08/12/2025 11:00 AM EDT 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) Localized tissue (HCC) Other specified local infections of the skin and subcutaneous tissue [place] DEBRIDEMENT SUBCUTANEOUS TISSUE EA ADDL 20 SQ CM Routine 08/12/2025 11:00 AM EDT 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) Localized tissue (HCC) Other specified local infections of the skin and subcutaneous tissue [place] DEBRIDEMENT SUBCUTANEOUS TISSUE EA ADDL 20 SQ CM Routine 08/12/2025 11:00 AM EDT 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) Localized tissue (HCC) Other specified local infections of the skin and subcutaneous tissue [place] DEBRIDEMENT SUBCUTANEOUS TISSUE EA ADDL 20 SQ CM Routine 08/12/2025 11:00 AM EDT 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) Localized tissue (HCC) Other specified local infections of the skin and subcutaneous tissue [place] DEBRIDEMENT SUBCUTANEOUS TISSUE EA ADDL 20 SQ CM Routine 08/12/2025 11:00 AM EDT 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) Localized tissue (HCC) Other specified local infections of the skin and subcutaneous tissue [place] DEBRIDEMENT SUBCUTANEOUS TISSUE EA ADDL 20 SQ CM Routine 08/12/2025 11:00 AM EDT 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) Localized tissue (HCC) Other specified local infections of the skin and subcutaneous tissue [place] DEBRIDEMENT SUBCUTANEOUS TISSUE 1ST 20 SQ CM/< Routine 08/12/2025 11:00 AM EDT 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) Localized tissue (HCC) Other specified local infections of the skin and subcutaneous tissue documented in this encounter Results * [place] DEBRIDEMENT SUBCUTANEOUS TISSUE 1ST 20 SQ CM/<, [place] DEBRIDEMENT SUBCUTANEOUS TISSUE EA ADDL 20SQ CM, [place] DEBRIDEMENT SUBCUTANEOUS TISSUE EA ADDL 20 SQ CM, [place] DEBRIDEMENT SUBCUTANEOUS TISSUE EA ADDL 20 SQ CM, [place] DEBRIDEMENT SUBCUTANEOUS TISSUE EA ADDL 20 SQ CM, [place] DEBRIDEMENT SUBCUTANEOUS TISSUE EA ADDL 20 SQ CM, [place] DEBRIDEMENT SUBCUTANEOUS TISSUE EA ADDL 20 SQ CM, [place] DEBRIDEMENT SUBCUTANEOUSTISSUE EA ADDL 20 SQ CM, [place] DEBRIDEMENT SUBCUTANEOUS TISSUE EA ADDL 20 SQ CM, [place] DEBRIDEMENT SUBCUTANEOUS TISSUE EA ADDL 20 SQ CM, [place] DEBRIDEMENT SUBCUTANEOUS TISSUE EA ADDL 20 SQ CM, [place] DEBRIDEMENT S UBCUTANEOUS TISSUE EA ADDL 20 SQ CM (08/12/2025 11:00 AM EDT) Sukhdev Cardoza Jr., MD - 08/12/2025 11:00 AM EDT Sukhdev Bazan Jr., MD 08/12/2025 8:10 PM Debridement Wound 08/05/25 Soft Tissue Necrosis Leg upper Anterior;Right;Medial Performed by: Sukhdev Bazan Jr., MD Authorized by: Sukhdev Bazan Jr., MD Consent Consent obtained? written Consent given by: patient Risks discussed? procedural risks discussed Immediately prior to the procedure a time out was called and the performing provider verified the correct patient, procedure, equipment, direct support professional home health, and site/side marked as required. Debridement Details Performed by: physician Debridement type: surgical Level of debridement: subcutaneous tissue Pain control: lidocaine 2% Pain control administration type: topical Pre-debridement measurements Length (cm): 17 Width (cm): 52.5 Depth (cm): 3.5 Surface Area (cm^2): 700.97 Post-debridement measurements Length (cm): 17 Width (cm): 52.5 Depth (cm): 3.6 Percent debrided: 33% Surface Area (cm^2): 700.97 Area Debrided (cm^2): 231.32 Volume (cm^3): 1682.32 Tissue and other material debrided: adipose, dermis, epidermis and subcutaneous tissue Devitalized tissue debrided: biofilm, fibrin and slough Instrument(s) utilized: curette Bleeding: small [...] uncontrolled documented in this encounter Care Teams Rehabilitation Worker Relationship Specialty Start Date End Date Yenny Dhillon, LGORIA [address] [place] [address] PCP - General Nurse Practitioner 03/13/24 documented as of this encounter
--- OUTSIDE RECORDS SUMMARY | 2025-08-14 14:00 | XMS_ITS | Encounter Summary ---
Author Organization [employer] ([place], [place], [place], [place], [place]) Address [address] [place] [address] Care Team Providers Care Convenience Recycle Center Tech Name Role Phone Yenny Dhillon GLORIA Primary Care Provider [phone] Reason for Visit * Reason Comments Wound Care Nurse visit for woun d care, wound vac change and dressing change Encounter Details Date Type Department Care Team (Latest Contact Info) Description 08/14/2025 3:00 PM EDT Clinical Support [facility] 1 [place] [address] Sukhdev Chadwick Jr., MD [address] [place] [phone] Localized tissue (HCC) (Primary Dx); 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); Other specified local infections of the skin and subcutaneous tissue; Diabetes mellitus with skin ulcer (HCC); 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 Social History Tobacco Use Types Packs/Day Years [...] Date Franko rded Speak language other than Romanian at home Not on file 12/23/2023 Want help with school or training Not on file 12/23/2023 Substance Use Answer Date Recorded Used prescription meds for non-medical reasons N ot on file 12/23/2023 Used illegal drugs past 12 months Not on file 12/23/2023 Comments Unknown Sex and Gender Information Value Date Recorded Sex Assigned at Not on file 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 Patient turned into a follow up, Dr. Chadwick came in and did a swab. Dressing did not change. Dressing removed as follows: Wound vac and drape, hydrofera blue ready 2 black foam, 2 white foam Dressing applied per order as indicated below: Remove dressings. Clean wound with 0.9 % normal saline. Apply 4 % or 5% topical lidocaine as neededfor pain in clinic only Betadine to entire wound Apply Skin protectant, Skin tac, and Eakins [...] Follow orders above for any non-provider visits No orders of the defined types were placed in this encounter. * Josi Black RN - 08/14/2025 3:00 PM EDTSummary: WOCN assessment Patient at wound care center for nurse visit for NPWT dressing change to right groin wound. Wound has granulating tissue, but strong odor detected with dressing removal per SHIPPING RECEIVING CLERK. Wound was cleansed with Vashe and wound still has mild odor, lilly drainage noted in canister of NPWT system. RLE has pitting edema compared with LLE which is new symptom for patient and patient relates that she has elevated her leg with no relief from edema and complains of mild to moderate pain. Notified Dr. Chadwick and visit converted to provider visit. Dr. Chadwick will be managing wound plan of care. * Sukhdev Chadwick Jr., MD - 08/14/2025 3:00 PM EDT Subjective 08/14/25 - CJA -patient returns to the wound care center today for a nursing visit that was turned into a MD visit secondary to a significant odor from patient's wound and also some swelling of her right lower leg. Patient reports no pain in the right lower leg I believe this is just downstream swelling from the inflammatory nature of having such a large wound. I do appreciate an increase in odor but patient is on Levaquin and since she has been coming here it is been a consistent odor but gradually worsening with today being the worst. Patient reports less drainage from the wound site and sheis no longer changing 4 canisters a day. Given that patient is already on Levaquin I decided to take a culture of the wound site to see what grew to make sure it was sensitive to Levaquin. I am also going to treat her with a Diflucan pill just to lower yeast bioburden which could be leading to odor. We going to paint the wound with a thin layer of Betadine prior to VAC application. This will alsohelp lower bioburden. 08/12/25 - CJA _patient returns today for [...] necrotizing fasciitis and was discharged from the [facility] on July 19, 2025 in [...] was discharged with a wound VAC to [facility] and recently got out of [facility]. She had a ER visit with [...] weakness. Objective Last Recorded Vitals Blood pressure 138/86, pulse 108, temperature 97.5 ??F (36.4 ??C), temperature source Temporal Artery, resp. rate 20. Physical Exam Constitutional: Appearance: Normal appearance. Musculoskeletal: [...] No results found for this visit on 08/14/25 (from the past 24 hours). No image results found. Ashley was seen today for wound care. 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 documented in this encounter Miscellaneous Notes * Addendum Note - Sukhdev Chadwick Jr., MD - 08/14/2025 3:00 PM EDTAddended by: SUKHDEV CHADWICK JR. on: 08/14/2025 06:32 PM Modules accepted: Level of Service documented in this encounter Plan of Treatment Upcoming Encounters Date Type Department Care Team (Late st Contact Info) Description 09/27/2025 10:45 AM EST Clinical Support [facility] 1 [place] [address] 09/30/2025 1:00 PM EST Clinical Support [facility] 1 [place] [address] 10/02/2025 1:00 PM EST Office Visit [facility] 1 [place] [phone] Sukhdev Chadwick Jr., MD [address] [place] [address] 10/07/2025 10:15 AM EST Clinical Support [facility] [place] 1 [place] [address] 10/09/2025 2:20 PM EST Office Visit [facility] 1 [place] [address] Sukhdev Chadwick Jr., MD [address] [place] [address] 10/11/2025 10:15 AM EST Clinical Support [facility] [place] 1 [place] [phone] documented as of this encounter Procedures Procedure Name Priority Date/Time Associated Diagnosis Comments WOUND CULTURE + GRAM STAIN Routine 08/14/2025 4:51 PM EDT Other specified local infections of the skin and subcutaneous tissue documented in this encounter Results * (ABNORMAL) Wound Culture + Gram Stain (08/14/2025 4:51 PM EDT) Result Light Growth Streptococcus agalactiae(A) 08/17/2025 2:03 PM EDT [facility] Result Light Growth Corynebacterium species(A) 08/17/2025 2:03 PM EDT [facility] Result Light Growth Corynebacterium species(A) 08/17/2025 2:03 PM EDT [facility] Comment:Second [place] Type Gram Stain Result No organisms seen 08/17/2025 2:03 PM EDT [facility] Gram Stain Result Few WBCs 08/17/2025 2:03 PM EDT [facility] Wound INGUINAL REGION STRUCTURE / Unknown 08/14/2025 4:51 PM EDT 08/14/2025 5:42 PM EDT Narrative [facility] - 08/17/2025 2:03 PM EDT Mixed growth suggestive of colonization or indigenous silvestre us Sukhdev Chadwick Jr., MD MICROBIOLOGY - GENERAL OR DERABLES Final Result [facility] [address] [phone] documented in this encounter Visit Diagnoses Diagnosis Localized tissue (HCC)- Primary Gangrene 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
--- OUTSIDE RECORDS SUMMARY | 2025-08-16 12:30 | XMS_ITS | Encounter Summary ---
Author Organization [employer] ([place], [place], [place], [place], [place]) Address [address] [place] [address] Care Team Providers Care Golf Ball Molder Name Role Phone Yenny Dhillon GLORIA Primary Care Provider [phone] Reason for Visit * Reason Comments Wound Care Encounter Details Date Type Department Care Team (Late st Contact Info) Description 08/16/2025 1:30 PM EDT Clinical Support [facility] 1 [place] [address] Sukhdev Bazan Jr., MD [address] [place] [phone] Non-pressure chronic ulcer of skin of [...] Date Franko rded Speak language other than Italian at home Not on file 12/23/2023 Want help with school or training Not on file 12/23/2023 Substance Use Answer Date Recorded Used prescription meds for non-medical reasons N ot on file 12/23/2023 Used illegal drugs past 12 months Not on file 12/23/2023 Comments Unknown Sex and Gender Information Value Date Recorded Sex Assigned at Not on file 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 Removed pt's previously ordered dressings including 2 pieces of white foam and black foam. Able to visualize entire wound bed to ensure all foam has been removed. Orders below followed for wound care: Clean wound with 0.9 % normal saline. Apply 4 % or 5% topical lidocaine as needed for pain in clinic only Wound site- Right Groin Cleanse with Vashe Apply Skin protectant, Skin tac, and Eakins ring, and Vac drape to Leann-wound Apply hydrofera blue ready to previously sutured area on the right side of wound. White foam to undermining areas of wound, Black foam over entire wound, vac drape. (2 pieces of each applied) Set wound vac at 125mmHg continous. Pt tolerated wound care well. Policy procedures followed. Patient instructed to call wound center for any concerns. Plan of Care: non-provider visits for wound care in clinic, pt to follow up with provider as previously scheduled documented in this encounter Plan of Treatment Upcoming Encounters Date Type Department Care Team (Late st Contact Info) Description 09/27/2025 10:45 AM EST Clinical Support [facility] 1 [place] [address] 09/30/2025 1:00 PM EST Clinical Support [facility] 1 [place] [address] 10/02/2025 1:00 PM EST Office Visit [facility] [place] 1 [place] [address] Sukhdev Bazan Jr., MD [address] [place] [phone] 10/07/2025 10:15 AM EST Clinical Support [facility] [address] [address] 10/09/2025 2:20 PM EST Office Visit [facility] 1 [place] [phone] Sukhdev Bazan Jr., MD [address] [place] [address] 10/11/2025 10:15 AM EST Clinical Support [facility] 1 [place] [phone] documented as of this encounter Visit Diagnoses Diagnosis 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
--- OUTSIDE RECORDS SUMMARY | 2025-08-19 14:40 | XMS_ITS | Encounter Summary ---
Author Organization [employer] ([place], [place], [place], [place], [place]) Address [address] [facility] [place] [address] Care Team Providers Care Tobacco Stemmer Machine Name Role Phone DhillonYenny whyte GLORIA Primary Care Provider [phone] Reason for Visit * Reason Comments Wound Care Encounter Details Date Type Department Care Team (Late st Contact Info) Description 08/19/2025 3:40 PM EDT Office Visit [facility] [address] [place] [address] Sukhdev Bazan Jr., MD [address] [place] [phone] Non-pressure chronic ulcer of skin of [...] Date Franko rded Speak language other than Swedish at home Not on file 12/23/2023 Want help with school or training Not on file 12/23/2023 Substance Use Answer Date Recorded Used prescription meds for non-medical reasons N ot on file 12/23/2023 Used illegal drugs past 12 months Not on file 12/23/2023 Comments Unknown Sex and Gender Information Value Date Recorded Sex Assigned at Not on file 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 Gender Identity Not on file Sexual Orientation Not on file documented as of this encounter Last Filed Vital Signs Vital Sign Reading Time Taken Comments Blood Pressure 126/74 08/19/2025 4:17 PM EDT Pulse 124 08/19/2025 4:17 PM EDT Temperature 36.1 C (96.9 F) 08/19/2025 4:17 PM EDT Respiratory Rate 20 08/19/2025 4:17 PM EDT Oxygen Saturation - - Inhaled Oxygen Concentration - - Weight - - Height - - Body Mass Index - - documented in this encounter Patient Instructions * Patient Instructions* María Caceres RN - 08/19/2025 3:40 PM EDT If your wound vac is not working and you can not restart after placing new wound vac tape around wound then remove all the wound vac foam and place saline moist guaze in the wound then dry guaze and tape in place. Change this every 12 hours and contact home health nurse( if you have home health) [facility] for an appointment. documented in this encounter Progress Notes * María Caceres RN - 08/19/2025 3:40 PM EDT Dressings removed. Below orders followed and patient tolerated procedures well. Black foam 2 piecesremoved .White foam 2 pieces removed. Remove dressings. Clean wound with 0.9 % normal saline. Apply 4 % or 5% topical lidocaine as neededfor pain in clinic only Wound site- Right Groin Cleanse with Vashe, Today only apply betadine to granulation tissue. Apply Skin protectant, Skin tac, and Eakins ring, and Vac drape to Leann-wound Apply hydrofera blue ready to previously sutured area on the right side of wound. Mepitel (if needed). 2 White foam to undermining areas of wound, 5 Black foam over entire wound, vac drape. Set wound vac at 125mmHg continous. POC- Change- 3x a week Return appt.- 1 week follow up and tue and Tuesday non provider visits Follow orders above for any non-provider visits Education-If your wound vac is not working and you can not restart after placing new wound vac tapearound wound then remove all the wound vac foam and place saline moist guaze in the wound then dry guaze and tape in place. Change this every 12 hours and contact home health nurse( if you have home health) or wound center for an appointment. * María Caceres RN - 08/19/2025 3:40 PM EDT Images from the original note were not included. Attached media from the original note were not included. 08/19/25 1620 Wound 08/05/25 Soft Tissue Necrosis Leg upper Anterior;Right;Medial Date First Assessed/Time First Assessed: 08/05/25 1433 Present on Original Admission: Yes Wound Approximate Age at First Assessment (Weeks): 4 weeks Primary Wound Type: Soft Tissue Necrosis Location:Leg upper Wound Location Orientation: Anterio... Wound Image Images linked Site Assessment Granulation;Sloughing Leann-Wound Assessment Scarred Wound Length (cm) 15 cm Wound Width (cm) 49 cm Wound Surface Area (cm^2) 577.27 cm^2 Wound Depth (cm) 2.9 cm Wound Volume (cm^3) 1116.05 cm^3 Undermining 3.5 cm Undermining Clock Position of Wound 11 Undermining Clock Position End of Wound 2 Undermining 2 6 cm Undermining Clock Position of Wound 2 2 Undermining Clock Position End of Wound 2 3 Margins Poorly defined Wound Healing % -1438 Drainage Description Serosanguineous (And milky colored) Drainage Amount Large Odor None Wound Bed Granulation (%) 90 % Wound Bed Slough (%) 10 % Non-staged Wound Description Full thickness * Sukhdev Bazan Jr., MD - 08/19/2025 3:40 PM EDTAssociated Order(s): Debridement Post-Procedure Diagnose(s): 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 Wound today is improved. It is less necrotic has not improved odor and is measuring smaller. Thorough debridement was still medically necessary at the wound site today due to nonviable tissue present. Wound without any surrounding erythema induration nor periwound maceration associated. We will continue with VAC therapy. We will paint the wound with Betadine prior to. 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 She has completed her antibiotics. 08/14/25 -patient returns to the wound care center [...] application. This will alsohelp lower bioburden. 08/12/25 _patient returns today for management of the [...] necrotizing fasciitis and was discharged from the [facility] on July 19, 2025 in regards [...] was discharged with a wound VAC to [facility] and recently got out of [facility]. She had a ER visit with [...] weakness. Objective Last Recorded Vitals Blood pressure 126/74, pulse 124, temperature 96.9 ??F (36.1 ??C), resp. rate 20. Physical Exam Constitutional: Appearance: [...] No results found for this visit on 08/19/25 (from the past 24 hours). 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 female. Debridement Wound 08/05/25 Soft Tissue Necrosis Leg upper Anterior;Right;Medial Performed by: Sukhdev Bazan Jr., MD Authorized by: Sukhdev Bazan Jr., MD Consent Consent obtained? written Consent given by: patient Risks discussed? procedural risks discussed Immediately prior to the procedure a time out was called and the performing provider verified the correct patient, procedure, equipment, it desktop support specialist, and site/side marked as required. Debridement Details Performed by: physician Debridement type: surgical Level of debridement: subcutaneous tissue Pain control: lidocaine 2% Pain control administration type: topical Pre-debridement measurements Length (cm): 15 Width (cm): 49 Depth (cm): 2.9 Surface Area (cm^2): 577.27 Post-debridement measurements Length (cm): 15 Width (cm): 49 Depth (cm): 3 Percent debrided: 33% Surface Area (cm^2): 577.27 Area Debrided (cm^2): 190.5 Volume (cm^3): 1154.53 Tissue and other material debrided: adipose, dermis, epidermis and subcutaneous tissue Devitalized tissue debrided: biofilm and slough Instrument(s) utilized: curette Bleeding: small Hemostasis obtained with: pressure Procedural pain (0-10): 2 Post-procedural pain: 1 Response to treatment: procedure was tolerated well documented in this encounter Plan of Treatment Upcoming Encounters Date Type Department Care Team (Late st Contact Info) Description 09/27/2025 10:45 AM EST Clinical Support [address] [address] 09/30/2025 1:00 PM EST Clinical Support [address] [address] 10/02/2025 1:00 PM EST Office Visit [address] [address] Sukhdev Bazan Jr., MD [address] [place] [address] 10/07/2025 10:15 AM EST Clinical Support [address] [address] 10/09/2025 2:20 PM EST Office Visit [address] [address] Sukhdev Bazan Jr., MD [address] [place] [address] 10/11/2025 10:15 AM EST Clinical Support [address] [phone] documented as of this encounter Procedures Procedure Name Priority Date/Time Associated Diagnosis Comments AR DEBRIDEMENT SUBCUTANEOUS TISSUE EA ADDL 20 SQ CM Routine 08/19/2025 3:40 PM EDT 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) Localized tissue (HCC) Other specified local infections of the skin and subcutaneous tissue AR DEBRIDEMENT SUBCUTANEOUS TISSUE EA ADDL 20 SQ CM Routine 08/19/2025 3:40 PM EDT 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) Localized tissue (HCC) Other specified local infections of the skin and subcutaneous tissue AR DEBRIDEMENT SUBCUTANEOUS TISSUE EA ADDL 20 SQ CM Routine 08/19/2025 3:40 PM EDT 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) Localized tissue (HCC) Other specified local infections of the skin and subcutaneous tissue AR DEBRIDEMENT SUBCUTANEOUS TISSUE EA ADDL 20 SQ CM Routine 08/19/2025 3:40 PM EDT 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) Localized tissue (HCC) Other specified local infections of the skin and subcutaneous tissue AR DEBRIDEMENT SUBCUTANEOUS TISSUE EA ADDL 20 SQ CM Routine 08/19/2025 3:40 PM EDT 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) Localized tissue (HCC) Other specified local infections of the skin and subcutaneous tissue AR DEBRIDEMENT SUBCUTANEOUS TISSUE EA ADDL 20 SQ CM Routine 08/19/2025 3:40 PM EDT 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) Localized tissue (HCC) Other specified local infections of the skin and subcutaneous tissue AR DEBRIDEMENT SUBCUTANEOUS TISSUE EA ADDL 20 SQ CM Routine 08/19/2025 3:40 PM EDT 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) Localized tissue (HCC) Other specified local infections of the skin and subcutaneous tissue AR DEBRIDEMENT SUBCUTANEOUS TISSUE EA ADDL 20 SQ CM Routine 08/19/2025 3:40 PM EDT 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) Localized tissue (HCC) Other specified local infections of the skin and subcutaneous tissue AR DEBRIDEMENT SUBCUTANEOUS TISSUE EA ADDL 20 SQ CM Routine 08/19/2025 3:40 PM EDT 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) Localized tissue (HCC) Other specified local infections of the skin and subcutaneous tissue AR DEBRIDEMENT SUBCUTANEOUS TISSUE 1ST 20 SQ CM/< Routine 08/19/2025 3:40 PM EDT 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) Localized tissue (HCC) Other specified local infections of the skin and subcutaneous tissue documented in this encounter Results * AR DEBRIDEMENT SUBCUTANEOUS TISSUE 1ST 20 SQ CM/<, AR DEBRIDEMENT SUBCUTANEOUS TISSUE EA ADDL 20SQ CM, AR DEBRIDEMENT SUBCUTANEOUS TISSUE EA ADDL 20 SQ CM, AR DEBRIDEMENT SUBCUTANEOUS TISSUE EA ADDL 20 SQ CM, AR DEBRIDEMENT SUBCUTANEOUS TISSUE EA ADDL 20 SQ CM, AR DEBRIDEMENT SUBCUTANEOUS TISSUE EA ADDL 20 SQ CM, AR DEBRIDEMENT SUBCUTANEOUS TISSUE EA ADDL 20 SQ CM, AR DEBRIDEMENT SUBCUTANEOUSTISSUE EA ADDL 20 SQ CM, AR DEBRIDEMENT SUBCUTANEOUS TISSUE EA ADDL 20 SQ CM, AR DEBRIDEMENT SUBCUTANEOUS TISSUE EA ADDL 20 SQ CM (08/19/2025 3:40 PM EDT) Sukhdev Cardoza Jr., MD - 08/19/2025 3:40 PM EDT Sukhdev Bazan Jr., MD 08/19/2025 9:43 PM Debridement Wound 08/05/25 Soft Tissue Necrosis Leg upper Anterior;Right;Medial Performed by: Sukhdev Bazan Jr., MD Authorized by: Sukhdev Bazan Jr., MD Consent Consent obtained? written Consent given by: patient Risks discussed? procedural risks discussed Immediately prior to the procedure a time out was called and the performing provider verified the correct patient, procedure, equipment, it desktop support specialist, and site/side marked as required. Debridement Details Performed by: physician Debridement type: surgical Level of debridement: subcutaneous tissue Pain control: lidocaine 2% Pain control administration type: topical Pre-debridement measurements Length (cm): 15 Width (cm): 49 Depth (cm): 2.9 Surface Area (cm^2): 577.27 Post-debridement measurements Length (cm): 15 Width (cm): 49 Depth (cm): 3 Percent debrided: 33% Surface Area (cm^2): 577.27 Area Debrided (cm^2): 190.5 Volume (cm^3): 1154.53 Tissue and other material debrided: adipose, dermis, [...] canis documented in this encounter Care Teams Tobacco Stemmer Machine Relationship Specialty Start Date End Date Yenny Dhillon APRN [address] [place] [address] PCP - General Nurse Practitioner 03/13/24 documented as of this encounter
--- OUTSIDE RECORDS SUMMARY | 2025-08-20 09:30 | XMS_ITS | Encounter Summary ---
Author Organization Healthcare Address [address] [place] [address] Care Team Providers Care Vp Training Name Role Phone Yenny Dhillon APRN Primary Care Provider [phone] Reason for Visit * Reason Comments Post-op Encounter Details Date Type Department Care Team ([facility] st Contact Info) Description 08/20/2025 10:30 AM EDT Office Visit [facility] [address], [address] [place] [address] Lilliana Morfin APRN [address] [place] [address] Hidradenitis suppurativa (Primary Dx); Soft tissue infection Social History Tobacco Use Types Packs/Day Years Used Date Smoking Tobacco: Every Day Cigarettes Smokeless Tobacco: Never Tobacco Cessation:Ready to Q uit: No; Counseling Given: No Alcohol Use Standard Drinks/Week Comments Not Currently [...] money to buy more. Never true 07/15/20 Within the past 12 months, t he [...] any time in the past 12 m [facility], were you homeless or living in a [facility] (including now)? No 07/15/2025 [facility] [...] Sign Reading Time Taken Comments Blood Pressure 115/81 08/20/2025 10:22 AM EDT Pulse 102 08/20/2025 10:22 AM EDT Temperature 36.4 C (97.5 F) 08/20/2025 10:22 AM EDT Respiratory Rate 16 08/20/2025 10:22 AM EDT Oxygen Saturation 97% 08/20/2025 10:22 AM EDT Inhaled Oxygen Concentration - - Weight 159 kg (349 lb 11.2 oz) 08/20/2025 10:22 AM EDT Height 177.8 cm (5' 10 ) 08/20/2025 10:22 AM EDT Body Mass Index 50.18 08/20/2025 10:22 AM EDT documented in this encounter Miscellaneous Notes * Progress Notes - iLlliana Morfin APRN - 08/20/2025 10:30 AM EDT 08/20/25 Ashley Brown Dear Yenny Dhillon APRN, HPI Ashley Brown is a 50 y.o. year old female with PMH of DM, hidradenitis supparativa, current smoker (1.5 ppd), hx of absent seizures, UTI, depression, anxiety, asthma, HLD, celiac disease, and recent NSTI of multiple body areas. She required multiple debridements of RLE, groin, pubis, and abdominal wall who presents today for wound check. She denies fevers, chills or purulent drainage. She sees a wound care clinic for wound vac changes thrice weekly. Review of Systems Relevant review of systems was obtained as able and is negative unless stated above in HPI. Past Medical History Past Medical History[1] Reviewed as documented above Past Surgical History Surgical History[2] Reviewed as documented above Social History reports that she has been smoking cigarettes. She has never used smokeless tobacco. She reports that she does not currently use alcohol. She reports current drug use. Drug: Marijuana. Reviewed as documented above Family History Family History[3] Reviewed as documented above Current Medications Current Medications[4] Vitals Vitals: 08/20/25 1022 BP: 115/81 Pulse: 102 Resp: 16 Temp: 36.4 ??C (97.5 ??F) SpO2: 97% Physical Exam Physical Exam Vitals and nursing note reviewed. HENT: Head: Normocephalic. Right Ear: External ear normal. Left Ear: External ear normal. Nose: Nose normal. Mouth/Throat: Mouth: Mucous membranes are moist. Pharynx: Oropharynx is clear. Eyes: Conjunctiva/sclera: Conjunctivae normal. Pupils: Pupils are equal, round, and reactive to light. Cardiovascular: Pulses: Normal pulses. Pulmonary: Effort: Pulmonary effort is normal. Abdominal: General: Bowel sounds are normal. Palpations: Abdomen is soft. Musculoskeletal: General: Normal range of motion. Cervical back: Normal range of motion. Skin: General: Skin is warm and dry. Capillary Refill: Capillary refill takes less than 2 seconds. Comments: Unable to visualize wound, wound vac in place Neurological: General: No focal deficit present. Mental Status: She is alert and oriented to person, place, and time. Mental status is at baseline. Psychiatric: Mood and Affect: Mood normal. Behavior: Behavior normal. Thought Content: Thought content normal. Judgment: Judgment normal. BMI: Body mass index is 50.18 kg/m??. Assessment and Plan 1. Hidradenitis suppurativa 2. Soft tissue infection Most recent pictures uploaded to [employer] show a nicely healing wound with granulating base. Patient does report some undermining, however not sure how deep. I recommend that she speak with her wound care provider about timing for possible skin grafting. When they feel it is appropriate, she will call Ninfa Tam, at that time we will get her scheduled with Dr. Hennessy for graft evaluation and planning. Follow up: TBD based on appropriateness of healing wound Lilliana Morfin APRN [1] Past Medical History: Diagnosis Date Anxiety Asthma Carpal tunnel syndrome Depression Diabetes H/O absence seizures Hidradenitis High cholesterol Hypertension Pharyngitis 08/31/2023 Postoperative pain 07/13/2025 Sleep apnea Smoker Urinary incontinence Urinary tract infection [2] Past Surgical History: Procedure Laterality Date CARPAL TUNNEL RELEASE 2 carpal tunnel surgeries - Aug CHOLECYSTECTOMY 1994 HAND SURGERY Left 2022 carpal tunnel HYSTERECTOMY 2005 TONSILECTOMY, ADENOIDECTOMY, BILATERAL MYRINGOTOMY AND TUBES 1991 [3] Family History Problem Relation Name Age of Onset Hypertension Mother Lung, kidney, chf COPD Mother Lung, kidney, chf Heart failure Mother Lung, kidney, chf Diabetes Mother Lung, kidney, chf Kidney cancer Mother Lung, kidney, chf Other (enlarge liver) Mother Lung, kidney, chf Hyperlipidemia Mother Lung, kidney, chf Cancer Mother Lung, kidney, chf 40 - 49 Heart disease Mother Lung, kidney, chf 50 - 59 Lung cancer Father Lung cancer Cancer Father Lung cancer 50 - 59 Cancer Mother's Brother Lung cancer 40 - 49 [4] Current Outpatient Medications Medication Sig Dispense Refill [...] tablet by mouth 1 time each day. lamoTRIgine (LaMICtal XR) 100 mg tablet sustained-release [...] mouth 2 times a day with meals. oxybutynin XL (Ditropan-XL) 10 MG 24 hr tablet Take 1 tablet by mouth daily. Do not crush, chew, orsplit. 30 tablet 11 polycarbophil (EQ Fiber Therapy) 625 MG tablet Take 1 tablet by mouth daily. polyethylene glycol (Miralax) 17 g packet Take 17 g by mouth daily. rosuvastatin (Crestor) 20 MG tablet Take 1 tablet by mouth daily. senna-docusate (Leann-Colace) 8.6-50 MG tablet Take 1 tablet by mouth 2 times a day. Vitamin E 180 MG (400 UNIT) capsule Take 1 tablet by mouth daily. insulin glargine-yfgn 100 UNIT/ML injection vial Inject 10 Units under the skin nightly. (Patient not taking: Reported on 08/20/2025) insulin lispro (Admelog) 100 UNIT/ML injection Inject 0-5 Units under the skin 3 times a day with meals. See After Visit Summary for instructions on how to take your insulin. (Patient not taking: Reported on 08/20/2025) insulin lispro (Admelog) 100 UNIT/ML injection Inject 0-3 Units under the skin 2 times a night. SeeAfter Visit Summary for instructions on how to take your insulin. (Patient not taking: Reported on 08/20/2025) oxyCODONE (Roxicodone) 10 MG immediate release tablet Take 1 tablet by mouth every 6 hours as needed for severe pain. (Patient not taking: Reported on 08/20/2025) oxyCODONE (Roxicodone) 5 MG immediate release tablet Take 1 tablet by mouth Q MWF. (Patient not taking: Reported on 08/20/2025) [Paused] valsartan-hydroCHLOROthiazide (Diovan-HCT) 320-12.5 MG tablet Take 1 tablet by mouth 1 time each day. No current facility-administered medications for this visit. documented in this encounter Plan of Treatment Upcoming Encounters Date Type Department Care Team (Late st Contact Info) Description 09/30/2025 10:20 AM EST Office Visit [facility] [address], [address] [place] [address] Marj Matamoros APRN [address] [place] [address] 11/19/2025 8:20 AM EST Office Visit Medical Office Building Urology [address] [facility], [address] [place] [address] Marj Matamoros, GLORIA [address] [place] [address] documented as of this encounter Visit Diagnoses Diagnosis Hidradenitis suppurativa- Primary Hidradenitis Soft tissue infection Unspecified infectious and parasitic diseases documented in this encounter Additional Health Concerns Assessment Noted Time PHQ-9 Depression Total Score: 16 023 9:36 AM EDT A fall risk assessment has been complete d for the patient 08/31/2023 9:38 AM EDT A Body Mass Index follow-up plan has been documented for the patient 08/20/2025 3:22 PM EDT documented as of this encounter Care Teams Vp Training Relationship Specialty Start Date End Date Yenny Dhillon APRN [address] [place] [address] PCP - General 07/22/23 documented as of this encounter
--- OUTSIDE RECORDS SUMMARY | 2025-08-21 14:30 | XMS_ITS | Encounter Summary ---
Author Organization [employer] ([place], [place], [place], [place], [place]) Address [address] [place] [address] Care Team Providers Care Airport Engineer Name Role Phone Yenny Dhillon GLORIA Primary Care Provider [phone] Reason for Visit * Reason Comments Wound Care Encounter Details Date Type Department Care Team (Late st Contact Info) Description 08/21/2025 3:30 PM EDT Clinical Support 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 Attached media from the original note were not included. 08/21/25 1559 Wound 08/05/25 Soft Tissue Necrosis Leg upper Anterior;Right;Medial Date First Assessed/Time First Assessed: 08/05/25 1433 Present on Original Admission: Yes Wound Approximate Age at First Assessment (Weeks): 4 weeks Primary Wound Type: Soft Tissue Necrosis Location:Leg upper Wound Location Orientation: Anterio... Wound Image Images linked Site Assessment Granulation;Sloughing Leann-Wound Assessment Scarred Wound Length (cm) 14.5 cm Wound Width (cm) 46 cm Wound Surface Area (cm^2) 523.86 cm^2 Wound Depth (cm) 3 cm Wound Volume (cm^3) 1047.72 cm^3 Undermining 3.5 cm Undermining Clock Position of Wound 11 Undermining Clock Position End of Wound 12 Undermining 2 3 cm Undermining Clock Position of Wound 2 2 Undermining Clock Position End of Wound 2 3 Margins Well-defined edges Wound Healing % -1344 Drainage Description Serosanguineous Drainage Amount Large Odor None Wound Bed Granulation (%) 100 % Non-staged Wound Description Full thickness * Sonia Elias RN - 08/21/2025 3:30 PM EDT Non-provider visit today for wound care. Removed pt's previously ordered dressings from abdomen. Wound vac shut off. 2 pieces of black foam, 2 pieces of white foam, and 1 piece of hydrofera blue removed from wound bed. Orders below followed for wound care: Clean wound with 0.9 % normal saline. Apply 4 % or 5% topical lidocaine as needed for pain in clinic only Wound site- Right Groin Cleanse with Vashe, Today only apply betadine to granulation tissue. Apply Skin protectant, Skin tac, and Eakins ring, and Vac drape to Leann-wound Applied 1 piece of hydrofera blue ready to previously sutured area on the right side of wound. Mepitel (if needed). 2 pieces of White foam to undermining areas of wound,3 pieces of Black foam over entire wound, vac drape. Set wound vac at 125mmHg continous. Change- 3x a week Return appt.- 1 week follow up Follow orders above for any non-provider visits Pt tolerated wound care well. Policy procedures followed. Patient instructed to call wound center for any concerns. Plan of Care: non-provider visits for wound care in clinic, pt to follow up with provider as previously scheduled 2 pieces of black foam 1 piece of hydrofera blue 2 white foam documented in this encounter Plan of Treatment Upcoming Encounters Date Type Department Care Team (Late st Contact Info) Description 09/27/2025 10:45 AM EST Clinical Support [facility] [place] [address] [place] [address] 09/30/2025 1:00 PM EST Clinical Support [facility] [place] [address] [place] [address] 10/02/2025 1:00 PM EST Office Visit [facility] [address] [place] [address] Sukhdev Bazan Jr., MD [address] [place] [phone] 10/07/2025 10:15 AM EST Clinical Support [facility] [address] [place] [address] 10/09/2025 2:20 PM EST Office Visit [facility] [place] [address] [place] [address] Sukhdev Bazan Jr., MD [address] [place] [phone] 10/11/2025 10:15 AM EST Clinical Support 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
--- OUTSIDE RECORDS SUMMARY | 2025-08-23 14:30 | XMS_ITS | Encounter Summary ---
Author Organization [employer] ([place], [place], [place], [place], [place]) Address [address] [place] [address] Care Team Providers Care Senior Energy Trader Name Role Phone Yenny Dhillon GLORIA Primary Care Provider [phone] Reason for Visit * Reason Comments Wound Care Encounter Details Date Type Department Care Team (Late st Contact Info) Description 08/23/2025 3:30 PM EDT Clinical Support [facility] [address] [place] [address] Sukhdev Bazan Jr., MD [address] [place] [phone] Non-pressure chronic ulcer of skin of [...] Date Franko rded Speak language other than Georgian at home Not on file 12/23/2023 Want help with school or training Not on file 12/23/2023 Substance Use Answer Date Recorded Used prescription meds for non-medical reasons N ot on file 12/23/2023 Used illegal drugs past 12 months Not on file 12/23/2023 Comments Unknown Sex and Gender Information Value Date Recorded Sex Assigned at Not on file 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 Attached media from the original note were not included. 08/23/25 1602 Wound 08/05/25 Soft Tissue Necrosis Leg upper Anterior;Right;Medial Date First Assessed/Time First Assessed: 08/05/25 1433 Present on Original Admission: Yes Wound Approximate Age at First Assessment (Weeks): 4 weeks Primary Wound Type: Soft Tissue Necrosis Location:Leg upper Wound Location Orientation: Anterio... Wound Image Images linked Leann-Wound Assessment Scarred Wound Length (cm) 14.5 cm Wound Width (cm) 44.5 cm Wound Surface Area (cm^2) 506.78 cm^2 Wound Depth (cm) 3.3 cm Wound Volume (cm^3) 1114.911 cm^3 Undermining 5 cm Undermining Clock Position of Wound 11 Undermining Clock Position End of Wound 12 Undermining 2 2.5 cm Undermining Clock Position of Wound 2 2 Undermining Clock Position End of Wound 2 3 Wound Healing % -1436 Wound Bed Granulation (%) 100 % Non-staged Wound Description Full thickness * Sonia Elias RN - 08/23/2025 3:30 PM EDT Non-provider visit today for wound care. Removed pt's previously ordered dressings from abdominal wound. Removed 3 black foam and 2 white foam from wound bed. Orders below followed for wound care: Remove dressings. Clean wound with 0.9 % [...] vac at 125mmHg continous. Change- 3x a week. Placed 4 black foam and 2 white foam in wound bed. Return appt.- 1 week follow up Follow [...] Description 09/27/2025 10:45 AM EST Clinical Support [facility] [address] [address] 09/30/2025 1:00 PM EST Clinical Support [facility] [address] [address] 10/02/2025 1:00 PM EST Office Visit [address] [address] Sukhdev Bazan Jr., MD [address] [place] [address] 10/07/2025 10:15 AM EST Clinical Support [facility] [place] [address] [place] [address] 10/09/2025 2:20 PM EST Office Visit [facility] [address] [address] Sukhdev Bazan Jr., MD [address] [place] [address] 10/11/2025 10:15 AM EST Clinical Support [facility] [place] [address] [place] [address] documented as of this encounter Visit Diagnoses Diagnosis 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
--- OUTSIDE RECORDS SUMMARY | 2025-08-26 08:00 | XMS_ITS | Encounter Summary ---
Author Organization [employer] ([place], [place], [place], [place], [place]) Address [address] [place] [address] Care Team Providers Care Tile And Mottle Supervisor Name Role Phone Yenny Dhillon GLORIA Primary Care Provider [phone] Reason for Visit * Reason Comments Wound Care Encounter Details Date Type Department Care Team (Late st Contact Info) Description 08/26/2025 9:00 AM EDT Clinical Support [facility] 1 [place] [address] Sukhdev Bazan Jr., MD [address] [place] [phone] Non-pressure chronic ulcer of skin of [...] Date Franko rded Speak language other than Kazakh at home Not on file 12/23/2023 Want help with school or training Not on file 12/23/2023 Substance Use Answer Date Recorded Used prescription meds for non-medical reasons N ot on file 12/23/2023 Used illegal drugs past 12 months Not on file 12/23/2023 Comments Unknown Sex and Gender Information Value Date Recorded Sex Assigned at Not on file 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 Gender Identity Not on file Sexual Orientation Not on file documented as of this encounter Last Filed Vital Signs Vital Sign Reading Time Taken Comments Blood Pressure 127/92 08/26/2025 9:15 AM EDT Pulse 81 08/26/2025 9:15 AM EDT Temperature 36.2 C (97.1 F) 08/26/2025 9:15 AM EDT Respiratory Rate - - Oxygen Saturation - - Inhaled Oxygen Concentration - - Weight - - Height - - Body Mass Index - - documented in this encounter Progress Notes * Efren Segovia RN - 08/26/2025 10:21 AM EDT 08/26/25 0929 Wound 08/05/25 Soft Tissue Necrosis Leg upper Anterior;Right;Medial Date First Assessed/Time First Assessed: 08/05/25 1433 Present on Original Admission: Yes Wound Approximate Age at First Assessment (Weeks): 4 weeks Primary Wound Type: Soft Tissue Necrosis Location:Leg upper Wound Location Orientation: Anterio... Site Assessment Granulation;Sloughing Leann-Wound Assessment Scarred Wound Length (cm) 13.5 cm Wound Width (cm) 41 cm Wound Surface Area (cm^2) 434.72 cm^2 Wound Depth (cm) 2.7 cm Wound Volume (cm^3) 782.492 cm^3 Undermining 5 cm Undermining Clock Position of Wound 11 Undermining Clock Position End of Wound 12 Undermining 2 2 cm Undermining Clock Position of Wound 2 2 Undermining Clock Position End of Wound 2 3 Margins Well-defined edges Wound Healing % -978 Drainage Description Serosanguineous Drainage Amount Large Odor None Wound Bed Granulation (%) 90 % Wound Bed Slough (%) 10 % Non-staged Wound Description Full thickness * Efren Segovia RN - 08/26/2025 9:00 AM EDT Non-provider visit today for wound care. Removed pt's previously ordered dressings. Removed: 4 pieces black foam, 2 pieces white foam Applied: 4 pieces black foam, 2 pieces white foam Orders below followed for wound care: Remove [...] at 125mmHg continous. Change- 3x a week Pt tolerated wound care well. Policy procedures followed. Patient instructed to call wound center for any concerns. Plan of Care: non-provider visits for wound care in clinic, pt to follow up with provider as previously scheduled documented in this encounter Plan of Treatment Upcoming Encounters Date Type Department Care Team (Late st Contact Info) Description 09/27/2025 10:45 AM EST Clinical Support [facility] [address] [address] 09/30/2025 1:00 PM EST Clinical Support [facility] [address] [address] 10/02/2025 1:00 PM EST Office Visit [address] [address] Sukhdev Bazan Jr., MD [address] [place] [address] 10/07/2025 10:15 AM EST Clinical Support [facility] [address] [address] 10/09/2025 2:20 PM EST Office Visit [address] [address] Sukhdev Bazan Jr., MD [address] [place] [address] 10/11/2025 10:15 AM EST Clinical Support [facility] [address] [phone] documented as of this encounter Visit Diagnoses Diagnosis 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
--- OUTSIDE RECORDS SUMMARY | 2025-08-28 08:00 | XMS_ITS | Encounter Summary ---
Author Organization [employer] ([place], [place], [place], [place], [place]) Address [address] [place] [address] Care Team Providers Care Beef Cattle Specialist Name Role Phone DhillonYenny whyte GLORIA Primary Care Provider [phone] Reason for Visit * Reason Comments Wound Care Encounter Details Date Type Department Care Team (Late st Contact Info) Description 08/28/2025 9:00 AM EDT Office Visit 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 Gender Identity Not on file Sexual Orientation Not on file documented as of this encounter Last Filed Vital Signs Vital Sign Reading Time Taken Comments Blood Pressure 143/88 08/28/2025 9:32 AM EDT Pulse 105 08/28/2025 9:32 AM EDT Temperature 36.3 C (97.3 F) 08/28/2025 9:32 AM EDT Respiratory Rate 18 08/28/2025 9:32 AM EDT Oxygen Saturation - - Inhaled Oxygen Concentration - - Weight - - Height - - Body Mass Index - - documented in this encounter Patient Instructions * Patient Instructions* Verito Guillermo RN - 08/28/2025 9:00 AM EDT documented in this encounter Progress Notes * Paola Jeffries RN - 08/28/2025 9:00 AM EDT Images from the original note were not included. Attached media from the original note were not included. 08/28/25 0945 Wound 08/05/25 Soft Tissue Necrosis Leg upper Anterior;Right;Medial Date First Assessed/Time First Assessed: 08/05/25 1433 Present on Original Admission: Yes Wound Approximate Age at First Assessment (Weeks): 4 weeks Primary Wound Type: Soft Tissue Necrosis Location:Leg upper Wound Location Orientation: Anterio... Wound Image Images linked Site Assessment Granulation Leann-Wound Assessment Scarred Wound Length (cm) 11 cm Wound Width (cm) 40 cm Wound Surface Area (cm^2) 345.57 cm^2 Undermining 5 cm Undermining Clock Position of Wound 11 Undermining Clock Position End of Wound 12 Undermining 2 2 cm Undermining Clock Position of Wound 2 2 Undermining Clock Position End of Wound 2 3 Margins Well-defined edges Drainage Description Serosanguineous Drainage Amount Large Odor None Wound Bed Granulation (%) 100 % Non-staged Wound Description Full thickness * Paola Jeffries RN - 08/28/2025 9:00 AM EDT - 4 pieces of black foam and 2 white foam removed - 4 pieces of black foam and 2 white foam applied Orders followed as below Remove dressings. Clean wound with 0.9 % normal saline. Apply 4 % or 5% topical lidocaine as neededfor pain in clinic only Wound site- Right Groin Cleanse with Vashe, Apply betadine to granulation tissue. Apply Skin protectant, Skin tac, and Eakins ring, and Vac drape to Leann-wound White foam to undermining areas of wound, Black foam over entire wound, vac drape. Set wound vac at 175mmHg continous. Apply hydrofera blue ready to previously sutured area on the right side of wound. Mepitel (if needed). Change- 3x a week in clinic Patient tolerated procedures well POC: Refer to Dr. Yung at [facility] Return appt.- 1 week follow up Follow orders above for any non-provider visits Education: Patient educated to go to ER if the wound vac stops working for more than 2 hours and [facility] [place] for any non-emergent concerns * Sukhdev Bazan Jr., MD - 08/28/2025 9:00 AM EDTAssociated Order(s): Debridement Subjective 08/28/25 - -patient returns to the wound care center today for management of the wound of her right groin and thigh. Wound today is improved. There seems to be less odor associated with it. Therereports that there is difficulty with keeping the VAC sealed but patient states that she has good suction. She is going through 2 canisters a day. Thorough debridement was medically necessary at the wound site today due to nonviable tissue present. Wound without any surrounding erythema induration nor periwound maceration. Will continue on with current regimen. 08/19/25 -patient returns to the wound care center [...] wound with Betadine prior to. Patientfell to pickle pumper her Diflucan prescription. She has completed her antibiotics. 08/14/25 - CJA -patient returns to the [...] necrotizing fasciitis and was discharged from the [facility] on July 19, 2025 in regards [...] was discharged with a wound VAC to [facility] and recently got out of [facility]. She had a ER visit with [...] Objective Last Recorded Vitals Blood pressure (!) 143/88, pulse 105, temperature 97.3 ??F (36.3 ??C), temperature source Tympanic,resp. rate 18. Physical Exam Constitutional: Appearance: Normal [...] No results found for this visit on 08/28/25 (from the past 24 hours). No image [...] Diabetes mellitus with skin ulcer (HCC) DOS: 08/28/2025 Patient ID: Ashley Brown is a 50 y.o. female. Debridement Wound 08/05/25 Soft Tissue Necrosis Leg upper Anterior;Right;Medial Performed by: Sukhdev Bazan Jr., MD Authorized by: Sukhdev Bazan Jr., MD Consent Consent obtained? written Consent given by: patient Risks discussed? procedural risks discussed Immediately prior to the procedure a time out was called and the performing provider verified the correct patient, procedure, equipment, technical support assistant, and site/side marked as required. Debridement Details Performed by: physician Debridement type: surgical Level of debridement: subcutaneous tissue Pain control: lidocaine 2% Pain control administration type: topical Pre-debridement measurements Length (cm): 11 Width (cm): 40 Depth (cm): 3.3 Surface Area (cm^2): 345.57 Post-debridement measurements Length (cm): 11 Width (cm): 40 Depth (cm): 3.4 Percent debrided: 33% Surface Area (cm^2): 345.57 Area Debrided (cm^2): 114.04 Volume (cm^3): 783.3 Tissue and other material debrided: adipose, dermis, [...] 09/27/2025 10:45 AM EST Clinical Support [facility] [place] [place] [address] [place] [address] 09/30/2025 1:00 PM EST Clinical Support [facility] [place] [address] [place] [address] 10/02/2025 1:00 PM EST Office Visit [facility] [address] [place] [phone] Sukhdev Bazan Jr., MD [address] [place] [address] 10/07/2025 10:15 AM EST Clinical Support [facility] [place] [address] [place] [address] 10/09/2025 2:20 PM EST Office Visit [address] [phone] Sukhdev Bazan Jr., MD [address] [place] [address] 10/11/2025 10:15 AM EST Clinical Support [facility] [address] [place] [phone] documented as of this encounter Procedures Procedure Name Priority Date/Time Associated Diagnosis Comments OK DEBRIDEMENT SUBCUTANEOUS TISSUE EA ADDL 20 SQ CM Routine 08/28/2025 9:00 AM EDT 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) Localized tissue (HCC) Other specified local infections of the skin and subcutaneous tissue OK DEBRIDEMENT SUBCUTANEOUS TISSUE EA ADDL 20 SQ CM Routine 08/28/2025 9:00 AM EDT 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) Localized tissue (HCC) Other specified local infections of the skin and subcutaneous tissue OK DEBRIDEMENT SUBCUTANEOUS TISSUE EA ADDL 20 SQ CM Routine 08/28/2025 9:00 AM EDT 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) Localized tissue (HCC) Other specified local infections of the skin and subcutaneous tissue OK DEBRIDEMENT SUBCUTANEOUS TISSUE EA ADDL 20 SQ CM Routine 08/28/2025 9:00 AM EDT 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) Localized tissue (HCC) Other specified local infections of the skin and subcutaneous tissue OK DEBRIDEMENT SUBCUTANEOUS TISSUE EA ADDL 20 SQ CM Routine 08/28/2025 9:00 AM EDT 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) Localized tissue (HCC) Other specified local infections of the skin and subcutaneous tissue OK DEBRIDEMENT SUBCUTANEOUS TISSUE 1ST 20 SQ CM/< Routine 08/28/2025 9:00 AM EDT 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) Localized tissue (HCC) Other specified local infections of the skin and subcutaneous tissue documented in this encounter Results * OK DEBRIDEMENT SUBCUTANEOUS TISSUE 1ST 20 SQ CM/<, OK DEBRIDEMENT SUBCUTANEOUS TISSUE EA ADDL 20SQ CM, OK DEBRIDEMENT SUBCUTANEOUS TISSUE EA ADDL 20 SQ CM, OK DEBRIDEMENT SUBCUTANEOUS TISSUE EA ADDL 20 SQ CM, OK DEBRIDEMENT SUBCUTANEOUS TISSUE EA ADDL 20 SQ CM, OK DEBRIDEMENT SUBCUTANEOUS TISSUE EA ADDL 20 SQ CM (08/28/2025 9:00 AM EDT) Sukhdev Cardoza Jr., MD - 08/28/2025 9:00 AM EDT Sukhdev Bazan Jr., MD 08/28/2025 2:45 PM Debridement Wound 08/05/25 Soft Tissue Necrosis Leg upper Anterior;Right;Medial Performed by: Sukhdev Bazan Jr., MD Authorized by: Sukhdev Bazan Jr., MD Consent Consent obtained? written Consent given by: patient Risks discussed? procedural risks discussed Immediately prior to the procedure a time out was called and the performing provider verified the correct patient, procedure, equipment, technical support assistant, and site/side marked as required. Debridement Details Performed by: physician Debridement type: surgical Level of debridement: subcutaneous tissue Pain control: lidocaine 2% Pain control administration type: topical Pre-debridement measurements Length (cm): 11 Width (cm): 40 Depth (cm): 3.3 Surface Area (cm^2): 345.57 Post-debridement measurements Length (cm): 11 Width (cm): 40 Depth (cm): 3.4 Percent debrided: 33% Surface Area (cm^2): 345.57 Area Debrided (cm^2): 114.04 Volume (cm^3): 783.3 Tissue and other material debrided: adipose, dermis, [...] uncontrolled documented in this encounter Care Teams Beef Cattle Specialist Relationship Specialty Start Date End Date Yenny Dhillon APRN [address] [place] [address] PCP - General Nurse Practitioner 03/13/24 documented as of this encounter
--- OUTSIDE RECORDS SUMMARY | 2025-08-30 15:00 | XMS_ITS | Encounter Summary ---
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 Gender Identity Not on file Sexual Orientation Not on file documented as of this encounter Last Filed Vital Signs Vital Sign Reading Time Taken Comments Blood Pressure 150/101 08/30/2025 4:23 PM EDT Pulse 111 08/30/2025 4:23 PM EDT Temperature 36.5 C (97.7 F) 08/30/2025 4:23 PM EDT Respiratory Rate 18 08/30/2025 4:23 PM EDT Oxygen Saturation - - Inhaled Oxygen Concentration - - Weight - - Height - - Body Mass Index - - documented in this encounter Progress Notes * Paola Jeffries RN - 08/30/2025 4:00 PM EDT - Removed 5 pieces of black foam and 2 pieces of white foam - Applied 4 pieces of black foam and 2 pieces of white foam Remove dressings. Clean wound with 0.9 % [...] right side of wound. Mepitel (if needed). Patient tolerated procedures well POC: Change- 3x a week in clinic Refer to Dr. Yung at [facility] Return appt.- 1 week follow up Follow orders above for any non-provider visits Education: Patient educated on signs/symptoms of infection and to go to ER if wound vac stops working for more than 2 hours * Paola Jeffries RN - 08/30/2025 4:00 PM EDT Images from the original note were not included. Attached media from the original note were not included. 08/30/25 1638 Wound 08/05/25 Soft Tissue Necrosis Leg upper Anterior;Right;Medial Date First Assessed/Time First Assessed: 08/05/25 1433 Present on Original Admission: Yes Wound Approximate Age at First Assessment (Weeks): 4 weeks Primary Wound Type: Soft Tissue Necrosis Location:Leg upper Wound Location Orientation: Anterio... Wound Image Images linked Site Assessment Granulation Leann-Wound Assessment Scarred Wound Length (cm) 36 cm Wound Width (cm) 13 cm Wound Surface Area (cm^2) 367.57 cm^2 Wound Depth (cm) 2.3 cm Wound Volume (cm^3) 563.601 cm^3 Undermining 4.7 cm Undermining Clock Position of Wound 11 Undermining Clock Position End of Wound 12 Undermining 2 2 cm Undermining Clock Position of Wound 2 2 Undermining Clock Position End of Wound 2 3 Margins Well-defined edges Wound Healing % -677 Drainage Description Serosanguineous Drainage Amount Large Odor None Wound Bed Granulation (%) 100 % Non-staged Wound Description Full thickness documented in this encounter Plan of Treatment Upcoming Encounters Date Type Department Care Team (Late st Contact Info) Description 09/27/2025 10:45 AM EST Clinical Support [facility] [place] 1 [place] [address] 09/30/2025 1:00 PM EST Clinical Support [address] [address] 10/02/2025 1:00 PM EST Office Visit [facility] 1 [place] [address] Sukhdev Bazan Jr., MD [address] [place] [address] 10/07/2025 10:15 AM EST Clinical Support [facility] [place] 1 [place] [address] 10/09/2025 2:20 PM EST Office Visit [facility] 1 [place] [address] Sukhdev Bazan Jr., MD [address] [place] [address] 10/11/2025 10:15 AM EST Clinical Support [facility] [place] 1 [place] [address] documented as of this encounter Procedures Procedure Name Priority Date/Time Associated Diagnosis Comments WOUND TREATMENT Routine 08/30/2025 5:21 PM EDT 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
--- OUTSIDE RECORDS SUMMARY | 2025-09-04 09:40 | XMS_ITS | Encounter Summary ---
Author Organization [employer] ([place], [place], [place], [place], [place]) Address [address] [place] [address] Care Team Providers Care Commutator Tester Name Role Phone DhillonYenny whyte GLORIA Primary Care Provider [phone] Reason for Visit * Reason Comments Wound Care Encounter Details Date Type Department Care Team (Late st Contact Info) Description 09/04/2025 10:40 AM EDT Office Visit [facility] 1 [place] [address] Sukhdev Bazan Jr., MD [address] [place] [phone] Non-pressure chronic ulcer of skin of [...] Date Franko rded Speak language other than Khmer at home Not on file 12/23/2023 Want help with school or training Not on file 12/23/2023 Substance Use Answer Date Recorded Used prescription meds for non-medical reasons N ot on file 12/23/2023 Used illegal drugs past 12 months Not on file 12/23/2023 Comments Unknown Sex and Gender Information Value Date Recorded Sex Assigned at Not on file 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 RESIN FILTERER Gender Identity Not on file Sexual Orientation Not on file documented as of this encounter Patient Instructions * Patient Instructions* Daron Vann RN - 09/04/2025 10:40 AM EDT If wound vac fails, remove wound vac from wound and apply wet to dry dressing. Call clinic for further directions. Signs and symptoms of infection: Increased redness, increased warmth, increased drainage, or odor related to wound or fever. Call Wound center during business hours: [phone] or after hours, go to the ER documented in this encounter Progress Notes * Daron Vann RN - 09/04/2025 10:40 AM EDT Patient in clinic today for a follow up visit. Dressings removed. Orders for wound care followed as below: Remove dressings. Clean wound with 0.9 % normal saline. Apply 4 % or 5% topical lidocaine as neededfor pain in clinic only. Wound site- Right Groin Cleanse with Vashe, Apply betadine to granulation tissue. Apply Skin protectant, Skin tac, and Eakins ring, and Vac drape to Leann-wound White foam to undermining areas of wound, Black foam over entire wound, vac drape. Set wound vac at 175mmHg continous. Change- 3x a week in clinic POC: Return appt.- 1 week follow up Instructed pt/ caregiver on wound care and [...] or Emergency Room. Patient tolerated procedures well. * Sukhdve Bazan Jr., MD - 09/04/2025 10:40 AM EDTAssociated Order(s): Debridement Subjective 09/04/25 -patient returns to the wound care center for management the wound of her right groin and thigh. Wound today is smaller. Debridement was medically necessary at the wound site today dueto nonviable tissue present. Wound with a odor still Terrie continue to paint with Betadine howeverthere is no signs of acute infection outside of the odor because there is no surrounding erythema induration nor periwound maceration. Patient is still going through 2 canisters today and drainage has not increased. Patient continues to smoke and was counseled regards to this. We are still working on getting her into see infectious disease. 08/28/25 -patient returns to the wound care center [...] wound with Betadine prior to. 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 She has completed her [...] necrotizing fasciitis and was discharged from the [facility] on July 19, 2025 in [...] was discharged with a wound VAC to [facility] and recently got out of [facility]. She had a ER visit with [...] weakness. Objective Last Recorded Vitals Blood pressure (P) 124/71, pulse (P) 134, temperature (P) 97.5 ??F (36.4 ??C), resp. rate (P) 18. Physical Exam Constitutional: Appearance: Normal appearance. [...] No results found for this visit on 09/04/25 (from the past 24 hours). 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 female. Debridement Wound 08/05/25 Soft Tissue Necrosis Leg upper Anterior;Right;Medial Performed by: Sukhdev Bazan Jr., MD Authorized by: Sukhdev Bazan Jr., MD Consent Consent obtained? written Consent given by: patient Risks discussed? procedural risks discussed Immediately prior to the procedure a time out was called and the performing provider verified the correct patient, procedure, equipment, instructional support assistant, and site/side marked as required. Debridement Details Performed by: physician Debridement type: surgical Level of debridement: subcutaneous tissue Pain control: lidocaine 2% Pain control administration type: topical Pre-debridement measurements Length (cm): 11.5 Width (cm): 36 Depth (cm): 2.3 Surface Area (cm^2): 325.15 Post-debridement measurements Length (cm): 11.6 Width (cm): 36 Depth (cm): 2.4 Percent debrided: 33% Surface Area (cm^2): 327.98 Area Debrided (cm^2): 108.23 Volume (cm^3): 524.77 Tissue and other material debrided: adipose, dermis, [...] Description 09/27/2025 10:45 AM EST Clinical Support [facility] 1 [place] [address] 09/30/2025 1:00 PM EST Clinical Support [facility] [place] 1 [place] [address] 10/02/2025 1:00 PM EST Office Visit [facility] 1 [place] [address] Sukhdev Bazan Jr., MD [address] [place] [address] 10/07/2025 10:15 AM EST Clinical Support [facility] 1 [place] [address] 10/09/2025 2:20 PM EST Office Visit [facility] 1 [place] [phone] Sukhdev Bazan Jr., MD [address] [place] [address] 10/11/2025 10:15 AM EST Clinical Support [facility] 1 [place] [address] documented as of this encounter Procedures Procedure Name Priority Date/Time Associated Diagnosis Comments KS DEBRIDEMENT SUBCUTANEOUS TISSUE EA ADDL 20 SQ CM Routine 09/04/2025 10:40 AM EDT 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) Localized tissue (HCC) Other specified local infections of the skin and subcutaneous tissue KS DEBRIDEMENT SUBCUTANEOUS TISSUE EA ADDL 20 SQ CM Routine 09/04/2025 10:40 AM EDT 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) Localized tissue (HCC) Other specified local infections of the skin and subcutaneous tissue KS DEBRIDEMENT SUBCUTANEOUS TISSUE EA ADDL 20 SQ CM Routine 09/04/2025 10:40 AM EDT 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) Localized tissue (HCC) Other specified local infections of the skin and subcutaneous tissue KS DEBRIDEMENT SUBCUTANEOUS TISSUE EA ADDL 20 SQ CM Routine 09/04/2025 10:40 AM EDT 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) Localized tissue (HCC) Other specified local infections of the skin and subcutaneous tissue KS DEBRIDEMENT SUBCUTANEOUS TISSUE EA ADDL 20 SQ CM Routine 09/04/2025 10:40 AM EDT 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) Localized tissue (HCC) Other specified local infections of the skin and subcutaneous tissue KS DEBRIDEMENT SUBCUTANEOUS TISSUE 1ST 20 SQ CM/< Routine 09/04/2025 10:40 AM EDT 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) Localized tissue (HCC) Other specified local infections of the skin and subcutaneous tissue documented in this encounter Results * KS DEBRIDEMENT SUBCUTANEOUS TISSUE 1ST 20 SQ CM/<, KS DEBRIDEMENT SUBCUTANEOUS TISSUE EA ADDL 20SQ CM, KS DEBRIDEMENT SUBCUTANEOUS TISSUE EA ADDL 20 SQ CM, KS DEBRIDEMENT SUBCUTANEOUS TISSUE EA ADDL 20 SQ CM, KS DEBRIDEMENT SUBCUTANEOUS TISSUE EA ADDL 20 SQ CM, KS DEBRIDEMENT SUBCUTANEOUS TISSUE EA ADDL 20 SQ CM (09/04/2025 10:40 AM EDT) Sukhdev Cardoza Jr., MD - 09/04/2025 10:40 AM EDT Sukhdev Bazan Jr., MD 09/04/2025 3:15 PM Debridement Wound 08/05/25 Soft Tissue Necrosis Leg upper Anterior;Right;Medial Performed by: Sukhdev Bazan Jr., MD Authorized by: Sukhdev Bazan Jr., MD Consent Consent obtained? written Consent given by: patient Risks discussed? procedural risks discussed Immediately prior to the procedure a time out was called and the performing provider verified the correct patient, procedure, equipment, instructional support assistant, and site/side marked as required. Debridement Details Performed by: physician Debridement type: surgical Level of debridement: subcutaneous tissue Pain control: lidocaine 2% Pain control administration type: topical Pre-debridement measurements Length (cm): 11.5 Width (cm): 36 Depth (cm): 2.3 Surface Area (cm^2): 325.15 Post-debridement measurements Length (cm): 11.6 Width (cm): 36 Depth (cm): 2.4 Percent debrided: 33% Surface Area (cm^2): 327.98 Area Debrided (cm^2): 108.23 Volume (cm^3): 524.77 Tissue and other material debrided: adipose, dermis, [...] canis documented in this encounter Care Teams Commutator Tester Relationship Specialty Start Date End Date Yenny Dhillon, GLORIA [address] [phone] PCP - General Nurse Practitioner 03/13/24 documented as of this encounter
--- OUTSIDE RECORDS SUMMARY | 2025-09-06 14:30 | XMS_ITS | Encounter Summary ---
Author Organization [employer] ([place], [place], [place], [place], [place]) Address [address] [place] [address] Care Team Providers Care Steward/Stewardess Second Name Role Phone Yenny Dhillon GLORIA Primary Care Provider [phone] Reason for Visit * Reason Comments Wound Care Encounter Details Date Type Department Care Team (Late st Contact Info) Description 09/06/2025 3:30 PM EDT Clinical Support [facility] 1 [place] [address] Sukhdev Bazan Jr., MD [address] [place] [phone] Non-pressure chronic ulcer of skin of [...] Date Franko rded Speak language other than Urdu at home Not on file 12/23/2023 Want help with school or training Not on file 12/23/2023 Substance Use Answer Date Recorded Used prescription meds for non-medical reasons N ot on file 12/23/2023 Used illegal drugs past 12 months Not on file 12/23/2023 Comments Unknown Sex and Gender Information Value Date Recorded Sex Assigned at Not on file 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 SECTION [employer] Gender Identity Not on file Sexual Orientation Not on file documented as of this encounter Last Filed Vital Signs Vital Sign Reading Time Taken Comments Blood Pressure 123/75 09/06/2025 3:34 PM EDT Pulse 112 09/06/2025 3:34 PM EDT Temperature - - Respiratory Rate - - Oxygen Saturation - - Inhaled Oxygen Concentration - - Weight - - Height - - Body Mass Index - - documented in this encounter Progress Notes * Efren Segovia RN - 09/06/2025 3:30 PM EDT Non-provider visit today for wound care. Removed pt's previously ordered dressings. Removed: 4 pieces black foam, 2 pieces white foam Applied: 3 pieces black foam, 2 pieces white foam [...] continous. Change- 3x a week in clinic Return appt.- 1 week follow up Follow orders above for any non-provider visits Pt tolerated wound care well. Policy procedures followed. Patient instructed to call wound center for any concerns. Plan of Care: non-provider visits for wound care in clinic, pt to follow up with provider as previously scheduled * Efren Segovia RN - 09/06/2025 3:30 PM EDT Images from the original note were not included. Attached media from the original note were not included. 09/06/25 1546 Wound 08/05/25 Soft Tissue Necrosis Leg upper Anterior;Right;Medial Date First Assessed/Time First Assessed: 08/05/25 1433 Present on Original Admission: Yes Wound Approximate Age at First Assessment (Weeks): 4 weeks Primary Wound Type: Soft Tissue Necrosis Location:Leg upper Wound Location Orientation: Anterio... Wound Image Images linked Site Assessment Granulation Leann-Wound Assessment Scarred Wound Length (cm) 10 cm Wound Width (cm) 38 cm Wound Surface Area (cm^2) 298.45 cm^2 Wound Depth (cm) 2.4 cm Wound Volume (cm^3) 477.522 cm^3 Undermining 5.8 cm Undermining Clock Position of Wound 11 Undermining Clock Position End of Wound 12 Undermining 2 2.3 cm Undermining Clock Position of Wound 2 2 Undermining Clock Position End of Wound 2 3 Margins Well-defined edges Wound Healing % -558 Drainage Description Serosanguineous Drainage Amount Large Odor None Wound Bed Granulation (%) 100 % Non-staged Wound Description Full thickness documented in this encounter Plan of Treatment Upcoming Encounters Date Type Department Care Team (Late st Contact Info) Description 09/27/2025 10:45 AM EST Clinical Support [facility] [address] [address] 09/30/2025 1:00 PM EST Clinical Support [address] [address] 10/02/2025 1:00 PM EST Office Visit [address] [address] Sukhdev Bazan Jr., MD [address] [place] [address] 10/07/2025 10:15 AM EST Clinical Support [address] [address] 10/09/2025 2:20 PM EST Office Visit [address] [address] Sukhdev Bazan Jr., MD [address] [place] [address] 10/11/2025 10:15 AM EST Clinical Support [facility] [address] [address] documented as of this encounter Visit Diagnoses Diagnosis 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
--- OUTSIDE RECORDS SUMMARY | 2025-09-09 16:00 | XMS_ITS | Encounter Summary ---
Author Organization [employer] ([place], [place], [place], [place], [place]) Address [address] [place] [address] Care Team Providers Care Bus Info Consultant Name Role Phone DhillonYenny whyte GLORIA Primary Care Provider [phone] Reason for Visit * Reason Comments Wound Care Encounter Details Date Type Department Care Team (Late st Contact Info) Description 09/09/2025 4:00 PM EST Clinical Support [facility] 1 [place] [address] Sukhdev Bazan Jr., MD [address] [place] [address] Non-pressure chronic ulcer of skin of [...] Date Franko rded Speak language other than Sinhala at home Not on file 12/23/2023 Want help with school or training Not on file 12/23/2023 Substance Use Answer Date Recorded Used prescription meds for non-medical reasons N ot on file 12/23/2023 Used illegal drugs past 12 months Not on file 12/23/2023 Comments Unknown Sex and Gender Information Value Date Recorded Sex Assigned at Not on file 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 SPECIAL ASSEMBLIES SUPERVISOR Gender Identity Not on file Sexual Orientation Not on file documented as of this encounter Last Filed Vital Signs Vital Sign Reading Time Taken Comments Blood Pressure 144/90 09/09/2025 2:58 PM EST Pulse 122 09/09/2025 2:58 PM EST Temperature 36.3 C (97.3 F) 09/09/2025 2:58 PM EST Respiratory Rate 18 09/09/2025 2:58 PM EST Oxygen Saturation - - Inhaled Oxygen Concentration - - Weight - - Height - - Body Mass Index - - documented in this encounter Progress Notes * Annie Morales RN - 09/09/2025 4:00 PM EST Images from the original note were not included. Attached media from the original note were not included. 09/09/25 1505 Wound 08/05/25 Soft Tissue Necrosis Leg upper Anterior;Right;Medial Date First Assessed/Time First Assessed: 08/05/25 1433 Present on Original Admission: Yes Wound Approximate Age at First Assessment (Weeks): 4 weeks Primary Wound Type: Soft Tissue Necrosis Location:Leg upper Wound Location Orientation: Anterio... Wound Image Images linked Site Assessment Granulation;Sloughing Leann-Wound Assessment Scarred Wound Length (cm) 10.5 cm Wound Width (cm) 37.5 cm Wound Surface Area (cm^2) 309.25 cm^2 Wound Depth (cm) 1.9 cm Wound Volume (cm^3) 391.717 cm^3 Undermining 5.5 cm Undermining Clock Position of Wound 11 Undermining Clock Position End of Wound 12 Undermining 2 1.4 cm Undermining Clock Position of Wound 2 2 Undermining Clock Position End of Wound 2 3 Margins Well-defined edges Wound Healing % -440 Drainage Description Serosanguineous Odor None Wound Bed Granulation (%) 90 % Wound Bed Slough (%) 10 % IAL ASSEMBLIES SUPERVISOR * Annie Morales RN - 09/09/2025 4:00 PM EST Non-provider visit today for wound care. Removed pt's previously ordered dressings including all black foam and 2 pieces white foam. Able to clearly visualize entire wound bed including undermining to ensure all foam has been removed. Orders below followed for wound care: Clean wound with 0.9 % normal saline. Apply 4 % or 5% topical lidocaine as needed for pain in clinic only. Wound site- Right Groin Cleanse with Vashe, Apply betadine to granulation tissue. Apply Skin protectant, Skin tac, and Eakins ring, and Vac drape to Leann-wound White foam to undermining areas of wound, Black foam over entire wound, vac drape. Set wound vac at 175mmHg continous. (2 pieces white foam and 3 pieces black foam applied) Pt tolerated wound care well. Policy procedures followed. Patient instructed to call wound center for any concerns. Plan of Care: non-provider visits for wound care in clinic, pt to follow up with provider as previously scheduled IAL ASSEMBLIES SUPERVISOR documented in this encounter Plan of Treatment Upcoming Encounters Date Type Department Care Team (Late st Contact Info) Description 09/27/2025 10:45 AM EST Clinical Support [facility] [address] [address] 09/30/2025 1:00 PM EST Clinical Support [facility] [address] [address] 10/02/2025 1:00 PM EST Office Visit [address] [address] Sukhdev Bazan Jr., MD [address] [place] [address] 10/07/2025 10:15 AM EST Clinical Support [facility] [place] [address] [place] [address] 10/09/2025 2:20 PM EST Office Visit [address] [address] Sukhdev Bazan Jr., MD [address] [place] [address] 10/11/2025 10:15 AM EST Clinical Support [facility] [place] [address] [place] [address] documented as of this encounter Visit Diagnoses Diagnosis 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
--- OUTSIDE RECORDS SUMMARY | 2025-09-10 00:26 | XMS_ITS | Continuity of Care Document ---
Author Organization [facility] Phone Care Team Providers Care Metal Tank Builder Name Role Phone KAILYN RODRIGUES Admitting KIALYN RODRIGUES Unavailable BELIA BAIRD Primary Care Unavailable KAILYN RODRIGUES Primary Attending ALLERGIES AND ADVERSE REACTIONS ALLERGIES AND ADVERSE REACTIONS Code System Allergy Substance Adverse Reaction Date Reaction (Severity) Comment Status Reported By Updated By 7984 RXNorm PENICILLIN Rash active [id number] on June 09, 2023 8:09:33 PM UTC 3640 RXNorm DOXYCYCLINE Rash active [id number] on June 09, 2023 8:09:33 PM UTC 596 RXNorm Xanax Adverse reaction to substance MENTAL STATUS CHANGES active [id number] on February 06, 2024 1:59:13 PM UTC 1191 RXNorm ASPIRIN Rash active [id number] on June 09, 2023 8:09:33 PM UTC 3322 RXNorm VALIUM Adverse reaction to substance (Moderate) gets mean active [id number] on June 09, 2023 8:09:33 PM UTC 56088 RXNorm Wellbutrin Adverse reaction to substance (Severe) THROAT SWELLING active Patient [id number] on February 06, 2024 1:59:13 PM UTC FAMILY HISTORY RELATION: Father Status: Cause of : Unknown Age at : Unknown SNOMED-CT Diagnosis Age At Onset [id number] Primary malignant neoplasm of bibi ng RELATION: Mother Status: Cause of : Unknown Age at : Unknown SNOMED-CT Diagnosis Age At Onset [id number] Chronic obstructive lung disease RESULTS Patient: KRUPA Escobar Date of : [birth year] 77 LABORATORY RESULTS ORDER 300: BUN (LOINC: 6299- 2) ORDER DATE: September 06, 2025 3:48:00 PM UTC Specimen Source: PLASMA Specimen Type: Plasma specim en PERFORMING LAB: [address] [id number] Result Comment: Final Result Date: September 06, 2025 4:17:00 PM UTC (TECH: ADB) LOINC TEST FLAG RESULT REFERENCE RANGE UPDA JAYASHREE BY 6299-2 Urea nitrogen [Mass/volume] in Blood N 7 mg/dL 7 mg/dL - 18 mg/dL September 06 4:17:00 PM UTC (TECH: ADB) ORDER 400: CREATININE (LOINC : 84630-9) ORDER DATE: September 06, 2025 3:48:00 PM UTC Specimen Source: PLASMA Specimen Type: Plasma specim en PERFORMING LAB: [address] [id number] Result Comment: Final Result Date: September 06, 2025 4:18:00 PM UTC (TECH: ADB) LOINC TEST FLAG [place]ULT [place] [address]-2 Creatinine [Moles/volume] in Blood N 1.0 mg/dL 0.6 mg/dL - 1.3 mg/dL September 06, 2025 4:18:00 PM UTC (TECH: ADB) 40148-7 Glomerular filtration rate/1.73 sq M.predicted by Creatinine-based formula (MDRD) N 69 mlpermin 60 mlpermin September 06, 2025 4:18:00 PM UTC (TECH: ADB) ORDER 700: CBC AUTO W DIFF ( LOINC: 55018-7) ORDER DATE: September 06, 2025 5:32:00 PM UTC Specimen Source: EDTA Specimen Type: Blood specime n with EDTA PERFORMING LAB: [address] [id number] Result Comment: Final Result Date: September 06, 2025 6:10:00 PM UTC (TECH: ADB) LOINC TEST FLAG RESULT REFERENCE RANGE UPDA JAYASHREE BY 6690-2 Leukocytes [#/volume] in Blood by Automated count H 16.1 K/ul 4.0 K/ul - 10.5 K/ul September 06, 2025 6:10:00 PM UTC (TECH: ADB) 789-8 Erythrocytes [#/volume] in Blood by Automated count N 4.6 M/mm3 4.2 M/mm3 - 6.4 M/mm3 September 06, 2025 6:10:00 PM UTC (TECH: ADB) 718-7 Hemoglobin [Mass/volume] in Blood L 11.6 gm/dl 12.5 gm/dl - 16.0 gm/dl September 06, 2025 6:10:00 PM UTC (TECH: ADB) 40288-7 Hematocrit [Volume Fraction] of Blood N 39.6 % 37.0 % - 47.0 % September 06, 2025 6:10:00 PM UTC (TECH: ADB) 787-2 Erythrocyte mean corpuscular volume [Entitic volume] by Automated count N 85.5 fl 78 fl - 100 fl September 06, 2025 6:10:00 PM UTC (TECH: ADB) 785-6 Erythrocyte mean corpuscular hemoglobin [Entitic mass] by Automated count L 25.1 pg 27 pg - 31 pg September 06, 2025 6:10:00 PM UTC (TECH: ADB) 786-4 Erythrocyte mean corpuscular hemoglobin concentration [Mass/volume] by Automated count L 29.3 g/dl 32 g/dl - 36 g/dl September 06, 2025 6:10:00 PM UTC (TECH: ADB) 87982-9 Erythrocyte distribution width [Ratio] H 16.5 % 11.5 % - 14.0 % September 06, 2025 6:10:00 PM UTC (TECH: ADB) 777-3 Platelets [#/volume] in Blood by Automated count H 606 K/ul 150 K/ul - 450 K/ul September 06, 2025 6:10:00 PM UTC (TECH: ADB) 55321-8 Platelet mean volume [Entitic volume] in Blood by Automated count N 9.2 fl 6 fl - 9.5 fl September 06, 2025 6:10:00 PM UTC (TECH: ADB) 54904-7 Neutrophils/100 leukocytes in Blood N 62.3 % 43 % - 65 % September 06, 2025 6:10:00 PM UTC (TECH: ADB) 736-9 Lymphocytes/100 leukocytes in Blood by Automated count N 28.6 % 20.5 % - 45.5 % September 06, 2025 6:10:00 PM UTC (TECH: ADB) 5905-5 Monocytes/100 leukocytes in Blood by Automated count N 5.5 % 5.5 % - 11.7 % September 06, 2025 6:10:00 PM UTC (TECH: ADB) 713-8 Eosinophils/100 leukocytes in Blood by Automated count N 2.7 % 0.9 % - 2.9 % September 06, 2025 6:10:00 PM UTC (TECH: ADB) 706-2 Basophils/100 leukocytes in Blood by Automated count N 0.4 % 0.2 % - 1.0 % September 06, 2025 6:10:00 PM UTC (TECH: ADB) 93702-1 Immature granulocytes/100 leukocytes in Blood by Automated count N 0.5 % 0.0 % - 0.8 % September 06, 2025 6:10:00 PM UTC (TECH: ADB) 06880-2 Nucleated cells [#/volume] in Blood N 0.0 % September 06, 2025 6:10:00 PM UTC (TECH: ADB) 11444-1 Neutrophils [#/volume] in Blood H 10.0 K/uL 2.2 K/uL - 4.8 K/uL September 06, 2025 6:10:00 PM UTC (TECH: ADB) 731-0 Lymphocytes [#/volume] in Blood by Automated count H 4.6 CELL/MCL 1.3 CELL/MCL - 2.9 CELL/MCL September 06, 2025 6:10:00 PM UTC (TECH: ADB) 742-7 Monocytes [#/volume] in Blood by Automated count H 0.9 CELL/MCL 0.3 CELL/MCL - 0.8 CELL/MCL September 06, 2025 6:10:00 PM UTC (TECH: ADB) 711-2 Eosinophils [#/volume] in Blood by Automated count H 0.4 CELL/MCL 0 CELL/MCL - 0.2 CELL/MCL September 06, 2025 6:10:00 PM UTC (TECH: ADB) 704-7 Basophils [#/volume] in Blood by Automated count N 0.1 CELL/MCL 0.0 CELL/MCL - 1.0 CELL/MCL September 06, 2025 6:10:00 PM UTC (TECH: ADB) 47610-2 Immature granulocytes [#/volume] in Blood N 0.08 K/ul September 06, 2025 6:10:00 PM UTC (TECH: ADB) 63073-1 Nucleated cells [#/volume] in Blood N 0.00 K/uL September 06, 2025 6:10:00 PM UTC (TECH: ADB) 80981-2 Manual Differential panel - Blood N NO September 06, 2025 6:10:00 PM UTC (TECH: ADB) ORDER 800: C-REACTIVE PROTEI N CRP (LOINC: 1988-03) ORDER DATE: September 06, 2025 5:32:00 PM UTC Specimen Source: PLASMA Specimen Type: Plasma specim en PERFORMING LAB: [address] [id number] Result Comment: Final Result Date: September 06, 2025 7:15:00 PM UTC (TECH: ARR) LOINC TEST FLAG RESULT REFERENCE RANGE UPDA JAYASHREE BY 1987- C reactive protein [Mass/volume] in Serum or Plasma H 4.4 mg/dL 0.05 mg/dL - 0.300 mg/dL September 06, 2025 7:15:00 PM UTC (TECH: ARR) ORDER 900: SED RATE (LOINC: 4537-7) ORDER DATE: September 06, 2025 5:32:00 PM UTC Specimen Source: EDTA Specimen Type: Blood specime n with EDTA PERFORMING LAB: [address] [id number] Result Comment: Final Result Date: September 06, 2025 6:57:00 PM UTC (TECH: ADB) LOINC TEST FLAG RESULT REFERENCE RANGE UPDA JAYASHREE BY 4537-7 Erythrocyte sedimentation rate by Westergren method H 45 0 - 20 September 06 6:57:00 PM UTC (TECH: ADB) ORDER 1700: COMP METABOLIC P DERECK (LOINC: 37156-5) ORDER DATE: September 06, 2025 5:32:00 PM UTC Specimen Source: PLASMA Specimen Type: Plasma specim en PERFORMING LAB: [address] [id number] Result Comment: Final Result Date: September 06, 2025 7:15:00 PM UTC (TECH: ARR) LOINC TEST FLAG RESULT REFERENCE RANGE UPDA JAYASHREE BY 2951-2 Sodium [Moles/volume ] in Serum or Plasma N 141 mmol/L 136 mmol/L - 145 mmol/L September 06, 2025 7:15:00 PM UTC (TECH: ARR) 2823-3 Potassium [Moles/vol ume] in Serum or Plasma N 3.9 mmol/L 3.6 mmol/L - 5.0 mmol/L September 06, 2025 7:15:00 PM UTC (TECH: ARR) 5-0 Chloride [Moles/volu me] in Serum or Plasma N 101 mmol/L 98 mmol/L - 107 mmol/L September 06, 2025 7:15:00 PM UTC (TECH: ARR) 2027-9 Carbon dioxide, tota l [Moles/volume] in Serum or Plasma N 31.9 mmol/L 21.0 mmol/L - 32.0 mmol/L September 06, 2025 7:15:00 PM UTC (TECH: ARR) 71913-5 Anion gap in Blood N 12.0 O ctober 2024 7:15:00 PM UTC (TECH: ARR) 2345-7 Glucose [Mass/volume ] in Serum or Plasma N 99 mg/dl 70 mg/dl - 120 mg/dl September 06, 2025 7:15:00 PM UTC (TECH: ARR) 6299-2 Urea nitrogen [Mass/volume] in Blood N 8 mg/dL 7 mg/dL - 18 mg/dL Octobe r 2024 7:15:00 PM UTC (TECH: ARR) 56509-8 Creatinine [Moles/vo lume] in Blood N 1.0 mg/dL 0.6 mg/dL - 1.3 mg/dL September 06, 2025 7:15:00 PM UTC (TECH: ARR) 22888-1 Glomerular filtratio n rate/1.73 sq M.predicted by Creatinine-based formula (MDRD) N 69 mlpermin 60 mlpermin September 06, 2025 7:15:00 PM UTC (TECH: ARR) 85404-7 Osmolality of Serum or Plasma by calculated by sum of electrolytes N 292 mosm/kg 275 mosm/kg - 301 mosm/kg September 06, 2025 7:15:00 PM UTC (TECH: ARR) 2885-2 Protein [Mass/volume ] in Serum or Plasma N 6.5 g/dl 6.4 g/dl - 8.2 g/dl September 06, 2025 7:15:00 PM UTC (TECH: ARR) 1751-7 Albumin [Mass/volume ] in Serum or Plasma L 2.4 g/dl 3.4 g/dl - 5.0 g/dl September 06, 2025 7:15:00 PM UTC (TECH: ARR) 2336-6 Globulin [Mass/volum e] in Serum N 4.1 September 06, 2025 7:15:00 PM UTC (TECH: ARR) 1759-0 Albumin/Globulin [Ma ss Ratio] in Serum or Plasma L 0.6 0.7 - 2 Octobe r 2024 7:15:00 PM UTC (TECH: ARR) 53068-2 Calcium [Mass/volume ] in Serum or Plasma N 9.7 mg/dl 8.5 mg/dl - 10.5 mg/dl September 06, 2025 7:15:00 PM UTC (TECH: ARR) 1975-2 Bilirubin.total [Mass/volume] in Serum or Plasma N 0.20 mg/dL 0.10 mg/dL - 1.00 mg/dL September 06, 2025 7:15:00 PM UTC (TECH: ARR) 1920-8 Aspartate aminotrans ferase [Enzymatic activity/volume] in Serum or Plasma N 21 U/L 0 U/L - 37 U/L September 06, 2025 7:15:00 PM UTC (TECH: ARR) 1742-6 Alanine aminotransfe rase [Enzymatic activity/volume] in Serum or Plasma N 24 U/L 0 U/L - 65 U/L September 06, 2025 7:15:00 PM UTC (TECH: ARR) 6768-6 Alkaline phosphatase [Enzymatic activity/volume] in Serum or Plasma H 139 U/L 46 U/L - 116 U/L September 06 7:15:00 PM UTC (TECH: ARR) LABORATORY NARRATIVE RESULTS Information is not available RADIOLOGY RESULTS ORDER 100: MRI PELVIS W/W/O CONTRAST (LOINC: 53082-7) ORDER DATE: September 06, 2025 3:15:00 PM [facility] PERFORMING LAB: [facility] [address] [facility] [id number] Final Result Date: August 092024 8:18:37 [facility] [address] [place] [address] Name: CRISTINA GENTILE Exam Date: 09/06/2025 : 1975 Age 50 years Gender: F Physician: Kailyn Rodrigues Facility: [facility] Facility HSV: Outpatient Exam: MRI PELVIS W/W/O CONTRAST EXAM DESCRIPTION: MRI PELVIS W/W/O CONTRAST CLINICAL HISTORY: 50 years Female, CHRONIC WOUND COMPARISON: None TECHNIQUE: Multislice multisequence multiplane MRI of the pelvis both prior to and after the IV administration of contrast. FINDINGS: Abnormal increased T2 signal involving the right femoral head anteriorly and superiorly with some linear features extending to the posterior aspect with somewhat serpentine pattern with corresponding enhancement postcontrast and decreased signal on T1-weighted sequences. In addition there is a small focus of increased T2 signal left femoral head anteriorly without corresponding decreased signal on T1 and no corresponding enhancement postcontrast. The remainder of the osseous pelvis is unremarkable. No fluid collections demonstrated. No evidence of ascites. There is skin edema and immediate subcutaneous soft tissue edema anterior right groin with enhancement postcontrast. 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 Soft tissue infection right groin involving the skin and immediate subcutaneous soft tissues likely representing cellulitis please correlate clinically. Focus of marrow edema involving a small portion of the left anterior femoral head early changes of avascular necrosis cannot be excluded. Electronically signed by: Temitope Isaac MD 09/06/2025 04:18 PM EDT Dictated By: Temitope Isaac Transcribed By: Transcribed On: 09/06/2025 4:18 PM Electronically signed by: Temitope Isaac 09/06/2025 Thank you for referring CRISTINA GENTILE to [facility]. Legally authenticated by KAIDEN AHMADI 2025-09-06 16:18:37 ORDER 500: MRI LWR EXT JOINT W/W/O RT (LOINC: 65035-5) ORDER DATE: September 06, 2025 4:09:00 PM [facility] PERFORMING LAB: [facility] [address] [place] [address] [id number] Final Result Date: August 092024 8:20:21 PM [facility] [address] [place] [address] Name: CRISTINA GENTILE Exam Date: 09/06/2025 : 1975 Age 50 years Gender: F Physician: Kailyn Rodrigues Facility: [facility] Facility HSV: Outpatient Exam: MRI LWR EXT JOINT W/W/O RT EXAM DESCRIPTION: MRI LWR EXT JOINT W/W/O RT CLINICAL HISTORY: 50 years Female, necrosis COMPARISON: 09/06/2025 MRI pelvis TECHNIQUE: Multislice multisequence planar MRI of the right hip performed both prior to and after the IV administration of contrast. FINDINGS: As discussed and demonstrated on MRI of the pelvis there is abnormal increased T2 with decreased T1 marrow signal involving the right femoral head anteriorly and superiorly and extending with linear features to the posterior femoral head with somewhat serpentine configuration without osseous destructive change with enhancement of these regions postcontrast. No joint effusion. No fluid collection demonstrated. There is soft tissue edema involving the skin and subcutaneous soft tissues right groin anteriorly with enhancement of the soft tissues. 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 Infectious process cannot be completely excluded. Right groin infection without abscess likely representing cellulitis. Electronically signed by: Temitope Isaac MD 09/06/2025 04:20 PM EDT Dictated By: Temitope Isaac Transcribed By: Transcribed On: 09/06/2025 4:20 PM Electronically signed by: Temitope Isaac 09/06/2025 Thank you for referring CRISTINA GENTILE to [facility]. Legally authenticated by KAIDEN AHMADI 2025-09-06 16:20:21 PATHOLOGY NARRATIVE RESULTS Information is not available MICROBIOLOGY RESULTS No Micro Labs/Results Exist for Patient BLOOD ADMIN RESULTS Information is not available MEDICATIONS HOME MEDICATIONS Status RXNORM NDC Medication Dose Route Frequency Dates Comments Reported By Updated By Drug Treatment Unknown DISCHARGE MEDICATIONS Status RXNORM NDC Medication Dose Route Frequency Dates Dis pense Data Comments Physician Updated By No Discharge Medication Info rmation Available INPATIENT MEDICATIONS Status RXNORM NDC Medication Dose Route Frequency Rat e Quantity Dates Indication Dispense Data Comments Physician Updated By No Inpatient Medication Info rmation Available SOCIAL HISTORY SOCIAL HISTORY - Smoking Status SNOMED-CT Social History Element Description Effective Dates Offered Cessation Comment Updated By [id number] Historical Tobacco smoking status Current Every Day Smoker [id number] on January 25, 2024 2:31:46 PM [facility] SOCIAL HISTORY - Gender Sex: Female SOCIAL HISTORY - Status : status i nformation is not available Intention in Next Year: intention information is not available SOCIAL HISTORY - Assessments Code System Description Status Date Value of Assessment Updated By Comment Assessment Information is no t available SOCIAL HISTORY - Red Devil Affiliation Red Devil information is not av ailable SOCIAL HISTORY - Legal Sex Legal Sex information is not available SOCIAL HISTORY - Sexual Behavior Sexual Orientation Gender Identity SNOMED-CT Description SNO MED -CT Description Activity Level No of Partners Partner Type UpdatedBy Information is not available SOCIAL HISTORY - Occupation Occupation information is no t available HEALTH CONCERNS Problems Concern Status Health Concern problem infor mation not available. Smoking Status Status Years Used Consumed packs p er day Health Concern smoking histo ry information not available. Family History Concern Status Health Concern family histor y information not available. ENCOUNTERS ENCOUNTER INFORMATION Reason for Visit MRI Admission September 06, 2025 3:01:00 PM [facility] [address] [facility] [id number] Discharge September 06, 2025 3:01:00 PM [facility] DISCHARGED TO HOME OR SELF CARE ENCOUNTER DIAGNOSES Notes information is not isabelle ilable. Code System Diagnosis Onset Date Diagnosis information is not available. ABSTRACT DIAGNOSES Code System Diagnosis Updated By Abatement Date T14.8XXA ICD10 OTHER INJURY OF UNSPECIFIED BODY REGION, INITIAL ENCOUNTER [id number] on September 10, 2025 5:25:33 AM [facility] Z88.0 ICD10 ALLERGY STATUS TO PENICILLIN [id number] on September 10, 2025 5:25:33 AM UTC Z88.1 ICD10 ALLERGY STATUS T O OTHER ANTIBIOTIC AGENTS [id number] on September 10, 2025 5:25:33 AM UTC T14.8XXA ICD10 OTHER INJURY OF UNSPECIFIED BODY REGION, INITIAL ENCOUNTER [id number] on September 10, 2025 5:25:33 AM UTC B35.6 ICD10 TINEA CRURIS [id number] on Nove mber 2024 5:25:33 AM UTC R60.0 ICD10 LOCALIZED EDEMA [id number] on N ovember 2024 5:25:33 AM UTC Z88.0 ICD10 ALLERGY STATUS TO PENICILLIN [id number] on September 10, 2025 5:25:33 AM UTC Z88.1 ICD10 ALLERGY STATUS T O OTHER ANTIBIOTIC AGENTS [id number] on September 10, 2025 5:25:33 AM UTC Z88.6 ICD10 ALLERGY STATUS T O ANALGESIC AGENT [id number] on September 10, 2025 5:25:33 AM UTC Z88.8 ICD10 ALLERGY STATUS T O OTHER DRUGS, MEDICAMENTS AND BIOLOGICAL SUBSTANCES [id number] on September 10, 2025 5:25:33 AM [facility] CARE TEAM Care Metal Tank Builder Role KAILYN RODRIGUES Admitting KAILYN RODRIGUES Referring BELIA BAIRD Primary Care KAILYN RODRIGUES Primary Attending CARE TEAM CARE composition mixer Role on Team Location Telecom Status Start Date End Romel e Updated By OLI CELAYA [facility] normal September 06, 2025 2:57:04 PM [facility] September 06, 2025 3:01:00 PM [facility] [id number] on September 06, 2025 2:57:04 PM [facility] LILIA LÓPEZ BIOMASS FACILITATOR Referring normal September 06, 2025 2:57:04 PM [facility] September 06, 2025 3:01:00 PM [facility] [id number] on September 06, 2025 2:57:04 PM [facility] LILIA LÓPEZ APRN Attending normal September 06, 2025 2:57:04 PM [facility] September 06, 2025 3:01:00 PM [facility] [id number] on September 06, 2025 2:57:04 PM [facility] LILIA LÓPEZ APRN Admitting normal September 06, 2025 2:57:04 PM [facility] September 06, 2025 3:01:00 PM [facility] [id number] on September 06, 2025 2:57:04 PM [facility]
--- OUTSIDE RECORDS SUMMARY | 2025-09-11 15:20 | XMS_ITS | Encounter Summary ---
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 Attached media from the original note were not included. 09/11/25 1544 Wound 08/05/25 Soft Tissue Necrosis Leg upper Anterior;Right;Medial Date First Assessed/Time First Assessed: 08/05/25 1433 Present on Original Admission: Yes Wound Approximate Age at First Assessment (Weeks): 4 weeks Primary Wound Type: Soft Tissue Necrosis Location:Leg upper Wound Location Orientation: Anterio... Wound Image Images linked Site Assessment Granulation;Sloughing Leann-Wound Assessment Scarred Wound Length (cm) 10.5 cm Wound Width (cm) 34.2 cm Wound Surface Area (cm^2) 282.04 cm^2 Wound Depth (cm) 1.2 cm Wound Volume (cm^3) 225.629 cm^3 Undermining 5.5 cm Undermining Clock Position of Wound 11 Undermining Clock Position End of Wound 12 Undermining 2 1.2 cm Undermining Clock Position of Wound 2 2 Undermining Clock Position End of Wound 2 3 Margins Well-defined edges Wound Healing % -211 Drainage Description Serosanguineous Drainage Amount Large Odor None Wound Bed Granulation (%) 90 % Wound Bed Slough (%) 10 % Non-staged Wound Description Full thickness ACING MACHINE OPERATOR * Paola Jeffries RN - 09/11/2025 3:20 PM EST - Removed 3 black foam and 2 white foam - Applied 3 black foam and 2 white foam Orders followed as below Remove dressings. Clean [...] continous. Change- 3x a week in clinic Patient tolerated procedures well POC: Return appt.- 1 week follow up Follow orders above for any non-provider visits Education: Patient educated on signs/symptoms of infection and to go to the ER if wound vac stops working for more than 2 consecutive hours. ACING MACHINE OPERATOR ACING MACHINE OPERATOR * Sukhdev Bazan Jr., MD - 09/11/2025 3:20 PM ESTAssociated Order(s): Debridement Subjective 09/11/25 - -patient returns to the wound care center today for management of wound of her right groin and thigh. Wound is improving. It is getting smaller. Debridement is medically necessary to wound site today due to nonviable tissue present. Wound is getting smaller and I can access a greater percentage of the wound for debridement. Wound without any surrounding erythema induration nor periwound maceration. Still some odor associated with the wound and I am advising to paint a thin coat ofBetadine prior to wound VAC application. Advised white sponge into the undermining area still. 09/04/25 - -patient returns to the wound care [...] wound with Betadine prior to. 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 She has completed her [...] necrotizing fasciitis and was discharged from the [facility] on July 19, 2025 in regards [...] was discharged with a wound VAC to [facility] and recently got out of [facility]. She had a ER visit with a wound VAC change after it became loose 2 days ago. She states she is feeling 4 canisters a day. We will provide her some out of our stock for her I VAC. She does have home health and [...] weakness. Objective Last Recorded Vitals Blood pressure 124/82, pulse 98, temperature 97.3 ??F (36.3 ??C), temperature source Tympanic, resp. rate 18. Physical Exam Constitutional: Appearance: [...] No results found for this visit on 09/11/25 (from the past 24 hours). No image [...] Diabetes mellitus with skin ulcer (HCC) DOS: 09/11/2025 Patient ID: Ashley Brown is a 50 y.o. female. Debridement Wound 08/05/25 Soft Tissue Necrosis Leg upper Anterior;Right;Medial Performed by: Sukhdev Bazan Jr., MD Authorized by: Sukhdev Bazan Jr., MD Consent Consent obtained? written Consent given by: patient Risks discussed? procedural risks discussed Immediately prior to the procedure a time out was called and the performing provider verified the correct patient, procedure, equipment, ground support equipment mechanic, and site/side marked as required. Debridement Details Performed by: physician Debridement type: surgical Level of debridement: subcutaneous tissue Pain control: lidocaine 2% Pain control administration type: topical Pre-debridement measurements Length (cm): 10.5 Width (cm): 34.2 Depth (cm): 1.2 Surface Area (cm^2): 282.04 Post-debridement measurements Length (cm): 10.6 Width (cm): 34.2 Depth (cm): 1.3 Percent debrided: 80% Surface Area (cm^2): 284.72 Area Debrided (cm^2): 227.78 Volume (cm^3): 246.76 Tissue and other material debrided: adipose, dermis, epidermis and subcutaneous tissue Devitalized tissue debrided: biofilm Instrument(s) utilized: curette Bleeding: small Hemostasis obtained with: pressure Procedural pain (0-10): 2 Post-procedural pain: 1 Response to treatment: procedure was tolerated well ACING MACHINE OPERATOR documented in this encounter Plan of Treatment Upcoming Encounters Date Type Department Care Team (Late st Contact Info) Description 09/27/2025 10:45 AM EST Clinical Support [address] [phone] 09/30/2025 1:00 PM EST Clinical Support [address] [address] 10/02/2025 1:00 PM EST Office Visit [address] [phone] Sukhdev Bazan Jr., MD [address] [place] [address] 10/07/2025 10:15 AM EST Clinical Support [address] [phone] 10/09/2025 2:20 PM EST Office Visit [address] [address] Sukhdev Bazan Jr., MD [address] [place] [address] 10/11/2025 10:15 AM EST Clinical Support [address] [phone] documented as of this encounter Procedures Procedure Name Priority Date/Time Associated Diagnosis Comments ND DEBRIDEMENT SUBCUTANEOUS TISSUE EA ADDL 20 SQ CM Routine 09/11/2025 3:20 PM EST 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) Localized tissue (HCC) Other specified local infections of the skin and subcutaneous tissue ND DEBRIDEMENT SUBCUTANEOUS TISSUE EA ADDL 20 SQ CM Routine 09/11/2025 3:20 PM EST 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) Localized tissue (HCC) Other specified local infections of the skin and subcutaneous tissue ND DEBRIDEMENT SUBCUTANEOUS TISSUE EA ADDL 20 SQ CM Routine 09/11/2025 3:20 PM EST 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) Localized tissue (HCC) Other specified local infections of the skin and subcutaneous tissue ND DEBRIDEMENT SUBCUTANEOUS TISSUE EA ADDL 20 SQ CM Routine 09/11/2025 3:20 PM EST 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) Localized tissue (HCC) Other specified local infections of the skin and subcutaneous tissue ND DEBRIDEMENT SUBCUTANEOUS TISSUE EA ADDL 20 SQ CM Routine 09/11/2025 3:20 PM EST 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) Localized tissue (HCC) Other specified local infections of the skin and subcutaneous tissue ND DEBRIDEMENT SUBCUTANEOUS TISSUE EA ADDL 20 SQ CM Routine 09/11/2025 3:20 PM EST 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) Localized tissue (HCC) Other specified local infections of the skin and subcutaneous tissue ND DEBRIDEMENT SUBCUTANEOUS TISSUE EA ADDL 20 SQ CM Routine 09/11/2025 3:20 PM EST 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) Localized tissue (HCC) Other specified local infections of the skin and subcutaneous tissue ND DEBRIDEMENT SUBCUTANEOUS TISSUE EA ADDL 20 SQ CM Routine 09/11/2025 3:20 PM EST 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) Localized tissue (HCC) Other specified local infections of the skin and subcutaneous tissue ND DEBRIDEMENT SUBCUTANEOUS TISSUE EA ADDL 20 SQ CM Routine 09/11/2025 3:20 PM EST 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) Localized tissue (HCC) Other specified local infections of the skin and subcutaneous tissue ND DEBRIDEMENT SUBCUTANEOUS TISSUE EA ADDL 20 SQ CM Routine 09/11/2025 3:20 PM EST 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) Localized tissue (HCC) Other specified local infections of the skin and subcutaneous tissue ND DEBRIDEMENT SUBCUTANEOUS TISSUE EA ADDL 20 SQ CM Routine 09/11/2025 3:20 PM EST 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) Localized tissue (HCC) Other specified local infections of the skin and subcutaneous tissue ND DEBRIDEMENT SUBCUTANEOUS TISSUE 1ST 20 SQ CM/< Routine 09/11/2025 3:20 PM EST 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) Localized tissue (HCC) Other specified local infections of the skin and subcutaneous tissue documented in this encounter Results * ND DEBRIDEMENT SUBCUTANEOUS TISSUE 1ST 20 SQ CM/<, ND DEBRIDEMENT SUBCUTANEOUS TISSUE EA ADDL 20SQ CM, ND DEBRIDEMENT SUBCUTANEOUS TISSUE EA ADDL 20 SQ CM, ND DEBRIDEMENT SUBCUTANEOUS TISSUE EA ADDL 20 SQ CM, ND DEBRIDEMENT SUBCUTANEOUS TISSUE EA ADDL 20 SQ CM, ND DEBRIDEMENT SUBCUTANEOUS TISSUE EA ADDL 20 SQ CM, ND DEBRIDEMENT SUBCUTANEOUS TISSUE EA ADDL 20 SQ CM, ND DEBRIDEMENT SUBCUTANEOUSTISSUE EA ADDL 20 SQ CM, ND DEBRIDEMENT SUBCUTANEOUS TISSUE EA ADDL 20 SQ CM, ND DEBRIDEMENT SUBCUTANEOUS TISSUE EA ADDL 20 SQ CM, ND DEBRIDEMENT SUBCUTANEOUS TISSUE EA ADDL 20 SQ CM, ND DEBRIDEMENT S UBCUTANEOUS TISSUE EA ADDL 20 SQ CM (09/11/2025 3:20 PM EST) Sukhdev Cardoza Jr., MD - 09/11/2025 3:20 PM EST Sukhdev Bazan Jr., MD 09/11/2025 6:21 PM Debridement Wound 08/05/25 Soft Tissue Necrosis Leg upper Anterior;Right;Medial Performed by: Sukhdev Bazan Jr., MD Authorized by: Sukhdev Bazan Jr., MD Consent Consent obtained? written Consent given by: patient Risks discussed? procedural risks discussed Immediately prior to the procedure a time out was called and the performing provider verified the correct patient, procedure, equipment, ground support equipment mechanic, and site/side marked as required. Debridement Details Performed by: physician Debridement type: surgical Level of debridement: subcutaneous tissue Pain control: lidocaine 2% Pain control administration type: topical Pre-debridement measurements Length (cm): 10.5 Width (cm): 34.2 Depth (cm): 1.2 Surface Area (cm^2): 282.04 Post-debridement measurements Length (cm): 10.6 Width (cm): 34.2 Depth (cm): 1.3 Percent debrided: 80% Surface Area (cm^2): 284.72 Area Debrided (cm^2): 227.78 Volume (cm^3): 246.76 Tissue and other material debrided: adipose, dermis, epidermis and subcutaneous tissue Devitalized tissue debrided: biofilm Instrument(s) utilized: curette Bleeding: small Hemostasis obtained [...] uncontrolled documented in this encounter Care Teams Paint Pourer Relationship Specialty Start Date End Date Yenny Dhillon APRN [address] [place] [address] PCP - General Nurse Practitioner 03/13/24 documented as of this encounter
--- OUTSIDE RECORDS SUMMARY | 2025-09-13 15:30 | XMS_ITS | Encounter Summary ---
Author Organization [employer] ([place], [place], [place], [place], [place]) Address [address] [place] [address] Care Team Providers Care Data Quality Consultant Name Role Phone DhillonYenny whyte GLORIA Primary Care Provider [phone] Reason for Visit * Reason Comments Wound Care Nurse visit for woun d care and dressing change. 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) Social History Tobacco Use Types Packs/Day Years Used Date Smoking Tobacco: Every Day Cigarettes Smokeless Tobacco: Never Tobacco Cessation:Ready to Q uit: Not Asked; Counseling Given: Not Answered Alcohol Use Standard Drinks/Week Comments Yes 0 (1 standard drink = 0.6 oz pur e alcohol) Family and Community Support Answer Romel e Recorded Help with Day to Day Activities Not on file 12/23/2023 Feeling Lonely or Isolated Not on file 12/23 Educational Attainment Answer Date Franko rded Speak language other than Belarusian at home Not on file 12/23/2023 Want help with school or training Not on file 12/23/2023 Substance Use Answer Date Recorded Used prescription meds for non-medical reasons N ot on file 12/23/2023 Used illegal drugs past 12 months Not on file 12/23/2023 Comments Unknown Sex and Gender Information Value Date Recorded Sex Assigned at Not on file 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 Dressing removed as follows: Wound vac and drape, 2 black foam, 2 white foam Dressing [...] defined types were placed in this encounter. R REGISTRAR documented in this encounter Plan of Treatment Upcoming Encounters Date Type Department Care Team (Late st Contact Info) Description 09/27/2025 10:45 AM EST Clinical Support [facility] [address] [address] [place] [address] 09/30/2025 1:00 PM EST Clinical Support [facility] [address] [address] [place] [address] 10/02/2025 1:00 PM EST Office Visit [facility] [address] [address] [place] [phone] Sukhdev Bazan Jr., MD [address] [place] [address] 10/07/2025 10:15 AM EST Clinical Support [facility] [place] [address] [place] [phone] 10/09/2025 2:20 PM EST Office Visit [address] [phone] Sukhdev Bazan Jr., MD [address] [place] [address] 10/11/2025 10:15 AM EST Clinical Support [facility]ound [facility] [address] [place] [phone] documented as of this encounter Visit Diagnoses Diagnosis 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
--- OUTSIDE RECORDS SUMMARY | 2025-09-16 16:00 | XMS_ITS | Encounter Summary ---
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 Attached media from the original note were not included. 09/16/25 1608 Wound 08/05/25 Soft Tissue Necrosis Leg upper Anterior;Right;Medial Date First Assessed/Time First Assessed: 08/05/25 1433 Present on Original Admission: Yes Wound Approximate Age at First Assessment (Weeks): 4 weeks Primary Wound Type: Soft Tissue Necrosis Location:Leg upper Wound Location Orientation: Anterio... Wound Image Images linked Site Assessment Granulation Leann-Wound Assessment Scarred Wound Length (cm) 10 cm Wound Width (cm) 33 cm Wound Surface Area (cm^2) 259.18 cm^2 Wound Depth (cm) 0.5 cm Wound Volume (cm^3) 86.394 cm^3 Undermining 2 cm Undermining Clock Position of Wound 12 Undermining Clock Position End of Wound 1 Undermining 2 0 cm Undermining Clock Position of Wound 2 2 Undermining Clock Position End of Wound 2 3 Wound Healing % -19 Odor Moderate Wound Bed Granulation (%) 100 % NICAL ADVISOR * Annie Morales RN - 09/16/2025 4:00 PM EST Non-provider visit today for wound care. Removed pt's previously ordered dressings, including 2 pieces white foam and 3 pieces black foam. Wound bed assessed thoroughly to ensure all foam has been removed. Orders below followed for wound care: Remove dressings. Clean wound with 0.9 % normal saline. Apply 4 % or 5% topical lidocaine as neededfor pain in clinic only. Wound site- Right Groin Clean wound with Vashe, Apply betadine to granulation tissue. Apply Skin protectant, Skin tac, and Eakins ring, and Vac drape to Leann-wound White foam to undermining areas of wound, Black foam over entire wound, vac drape. (1 piece of white foam, 3 pieces black foam applied) Set wound vac at 175mmHg continous. Pt tolerated wound care well. Policy procedures followed. Patient instructed to call wound center for any concerns. Plan of Care: non-provider visits for wound care in clinic, pt to follow up with provider as previously scheduled NICAL ADVISOR documented in this encounter Plan of Treatment Upcoming Encounters Date Type Department Care Team (Late st Contact Info) Description 09/27/2025 10:45 AM EST Clinical Support 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
--- OUTSIDE RECORDS SUMMARY | 2025-09-18 09:30 | XMS_ITS | Encounter Summary ---
Author Organization [employer] ([place], [place], [place], [place], [place]) Address [address] [place] [address] Care Team Providers Care Nature Photographer Name Role Phone DhillonYenny whyte GLORIA Primary Care Provider [phone] Reason for Visit * Reason Comments Wound Care Encounter Details Date Type Department Care Team (Late st Contact Info) Description 09/18/2025 9:30 AM EST Office Visit [facility] [address] [place] [address] Sukhdev Bazan Jr., MD [address] [place] [id number] Non-pressure chronic ulcer of skin of [...] Date Franko rded Speak language other than [place] at home Not on file 12/23/2023 Want help with school or training Not on file 12/23/2023 Substance Use Answer Date Recorded Used prescription meds for non-medical reasons N ot on file 12/23/2023 Used illegal drugs past 12 months Not on file 12/23/2023 Comments Unknown Sex and Gender Information Value Date Recorded Sex Assigned at Not on file 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 DERMATOLOGY SALES REPRESENTATIVE Gender Identity Not on file Sexual Orientation Not on file documented as of this encounter Last Filed Vital Signs Vital Sign Reading Time Taken Comments Blood Pressure 146/93 09/18/2025 10:00 AM EST Pulse 90 09/18/2025 10:00 AM EST Temperature 36.3 C (97.4 F) 09/18/2025 10:00 AM EST Respiratory Rate 18 09/18/2025 10:00 AM EST Oxygen Saturation - - Inhaled Oxygen Concentration - - Weight - - Height - - Body Mass Index - - documented in this encounter Patient Instructions * Patient Instructions* Paola Jeffries RN - 09/18/2025 9:30 AM EST Go to the ER if the wound vac stops working for more than 2 hours. Call [facility] for any concerns [phone] ATOLOGY SALES REPRESENTATIVE documented in this encounter Progress Notes * Paola Jeffries RN - 09/18/2025 9:30 AM EST Images from the original note were not included. Attached media from the original note were not included. 09/18/25 1011 Wound 08/05/25 Soft Tissue Necrosis Leg upper Anterior;Right;Medial Date First Assessed/Time First Assessed: 08/05/25 1433 Present on Original Admission: Yes Wound Approximate Age at First Assessment (Weeks): 4 weeks Primary Wound Type: Soft Tissue Necrosis Location:Leg upper Wound Location Orientation: Anterio... Wound Image Images linked Site Assessment Granulation Leann-Wound Assessment Scarred Wound Length (cm) 9 cm Wound Width (cm) 34 cm Wound Surface Area (cm^2) 240.33 cm^2 Wound Depth (cm) 0.5 cm Wound Volume (cm^3) 80.111 cm^3 Undermining 2 cm Undermining Clock Position of Wound 12 Undermining Clock Position End of Wound 1 Margins Well-defined edges Wound Healing % -10 Drainage Description Serosanguineous Drainage Amount Large Odor Mild Wound Bed Granulation (%) 100 % Non-staged Wound Description Full thickness ATOLOGY SALES REPRESENTATIVE * Paola Jeffries RN - 09/18/2025 9:30 AM EST - Removed 3 pieces of black foam and 1 piece of white foam - Applied 4 pieces of black foam and 1 piece of white foam Orders followed as below Remove dressings. Clean wound with 0.9 % normal saline. Apply 4 % or 5% topical lidocaine as neededfor pain in clinic only. Wound site- Right Groin Cleanse with Vashe, Apply betadine to granulation tissue. Apply Skin protectant, Skin tac, and Eakins ring, and Vac drape to Leann-wound White foam to undermining of wound, Black foam over entire wound, vac drape. Set wound vac at 175mmHg continous. Change- 3x a week in clinic Patient tolerated procedures well POC: Return appt.- 1 week follow up Follow orders above for any non-provider visits Education: Patient educated on signs/symptoms of infection and to go to the ER if wound vac stops working for 2 consecutive hours ATOLOGY SALES REPRESENTATIVE ATOLOGY SALES REPRESENTATIVE * Sukhdev Bazan Jr., MD - 09/18/2025 9:30 AM ESTAssociated Order(s): Debridement Subjective 09/18/25 - -patient returns to the wound care center today for management of the wound of her right groin and thigh. Wound continues to improve. It continues to get smaller. Debridement was medically necessary at the wound site today due to nonviable tissue present. Patient is still smoking andwas counseled regards to this. States she is down to a pack a day. Will continue with current treatm ent. 09/11/25 - -patient returns to the wound [...] am advising to paint a thin coat of Betadine prior to wound VAC application. Advised white sponge into the undermining area still. 09/04/25 -patient returns to the wound care [...] wound with Betadine prior to. Patientfell to hot die picker her Diflucan prescription. She has completed [...] necrotizing fasciitis and was discharged from the [facility] on July 19, 2025 in regards to [...] was discharged with a wound VAC to [facility] and recently got out of [facility]. She had a ER visit with a [...] Objective Last Recorded Vitals Blood pressure (!) 146/93, pulse 90, temperature 97.4 ??F (36.3 ??C), temperature source Tympanic, resp. [...] No results found for this visit on 09/18/25 (from the past 24 hours). No image [...] Diabetes mellitus with skin ulcer (HCC) DOS: 09/18/2025 Patient ID: Ashley Brown is a 50 y.o. female. Debridement Wound 08/05/25 Soft Tissue Necrosis Leg upper Anterior;Right;Medial Performed by: Sukhdev Bazan Jr., MD Authorized by: Sukhdev Bazan Jr., MD Consent Consent obtained? written Consent given by: patient Risks discussed? procedural risks discussed Immediately prior to the procedure a time out was called and the performing provider verified the correct patient, procedure, equipment, customer support technician, and site/side marked as required. Debridement Details Performed by: physician Debridement type: surgical Level of debridement: subcutaneous tissue Pain control: lidocaine 2% Pain control administration type: topical Pre-debridement measurements Length (cm): 9 Width (cm): 34 Depth (cm): 0.5 Surface Area (cm^2): 240.33 Post-debridement measurements Length (cm): 9 Width (cm): 34 Depth (cm): 0.6 Percent debrided: 80% Surface Area (cm^2): 240.33 Area Debrided (cm^2): 192.26 Volume (cm^3): 96.13 Tissue and other material debrided: adipose, dermis and subcutaneous tissue Devitalized tissue debrided: biofilm and slough Instrument(s) utilized: curette Bleeding: small Hemostasis obtained with: pressure Procedural pain (0-10): 2 Post-procedural pain: 1 Response to treatment: procedure was tolerated well ATOLOGY SALES REPRESENTATIVE documented in this encounter Plan of Treatment Upcoming Encounters Date Type Department Care Team (Late st Contact Info) Description 09/27/2025 10:45 AM EST Clinical Support [facility] [address] [place] [address] 09/30/2025 1:00 PM EST Clinical Support [facility] [place] [address] [place] [address] 10/02/2025 1:00 PM EST Office Visit [address] [address] Sukhdev Bazan Jr., MD [address] [place] [phone] 10/07/2025 10:15 AM EST Clinical Support [facility] [address] [place] [address] 10/09/2025 2:20 PM EST Office Visit [facility] [address] [place] [address] Sukhdev Bazan Jr., MD [address] [place] [address] 10/11/2025 10:15 AM EST Clinical Support [facility] [address] [place] [address] documented as of this encounter Procedures Procedure Name Priority Date/Time Associated Diagnosis Comments VT DEBRIDEMENT SUBCUTANEOUS TISSUE EA ADDL 20 SQ CM Routine 09/18/2025 9:30 AM EST 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) Localized tissue (HCC) Other specified local infections of the skin and subcutaneous tissue VT DEBRIDEMENT SUBCUTANEOUS TISSUE EA ADDL 20 SQ CM Routine 09/18/2025 9:30 AM EST 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) Localized tissue (HCC) Other specified local infections of the skin and subcutaneous tissue VT DEBRIDEMENT SUBCUTANEOUS TISSUE EA ADDL 20 SQ CM Routine 09/18/2025 9:30 AM EST 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) Localized tissue (HCC) Other specified local infections of the skin and subcutaneous tissue VT DEBRIDEMENT SUBCUTANEOUS TISSUE EA ADDL 20 SQ CM Routine 09/18/2025 9:30 AM EST 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) Localized tissue (HCC) Other specified local infections of the skin and subcutaneous tissue VT DEBRIDEMENT SUBCUTANEOUS TISSUE EA ADDL 20 SQ CM Routine 09/18/2025 9:30 AM EST 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) Localized tissue (HCC) Other specified local infections of the skin and subcutaneous tissue VT DEBRIDEMENT SUBCUTANEOUS TISSUE EA ADDL 20 SQ CM Routine 09/18/2025 9:30 AM EST 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) Localized tissue (HCC) Other specified local infections of the skin and subcutaneous tissue VT DEBRIDEMENT SUBCUTANEOUS TISSUE EA ADDL 20 SQ CM Routine 09/18/2025 9:30 AM EST 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) Localized tissue (HCC) Other specified local infections of the skin and subcutaneous tissue VT DEBRIDEMENT SUBCUTANEOUS TISSUE EA ADDL 20 SQ CM Routine 09/18/2025 9:30 AM EST 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) Localized tissue (HCC) Other specified local infections of the skin and subcutaneous tissue VT DEBRIDEMENT SUBCUTANEOUS TISSUE EA ADDL 20 SQ CM Routine 09/18/2025 9:30 AM EST 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) Localized tissue (HCC) Other specified local infections of the skin and subcutaneous tissue VT DEBRIDEMENT SUBCUTANEOUS TISSUE 1ST 20 SQ CM/< Routine 09/18/2025 9:30 AM EST 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) Localized tissue (HCC) Other specified local infections of the skin and subcutaneous tissue documented in this encounter Results * VT DEBRIDEMENT SUBCUTANEOUS TISSUE 1ST 20 SQ CM/<, VT DEBRIDEMENT SUBCUTANEOUS TISSUE EA ADDL 20SQ CM, VT DEBRIDEMENT SUBCUTANEOUS TISSUE EA ADDL 20 SQ CM, VT DEBRIDEMENT SUBCUTANEOUS TISSUE EA ADDL 20 SQ CM, VT DEBRIDEMENT SUBCUTANEOUS TISSUE EA ADDL 20 SQ CM, VT DEBRIDEMENT SUBCUTANEOUS TISSUE EA ADDL 20 SQ CM, VT DEBRIDEMENT SUBCUTANEOUS TISSUE EA ADDL 20 SQ CM, VT DEBRIDEMENT SUBCUTANEOUSTISSUE EA ADDL 20 SQ CM, VT DEBRIDEMENT SUBCUTANEOUS TISSUE EA ADDL 20 SQ CM, VT DEBRIDEMENT SUBCUTANEOUS TISSUE EA ADDL 20 SQ CM (09/18/2025 9:30 AM EST) Sukhdev Cardoza Jr., MD - 09/18/2025 9:30 AM EST Sukhdev Bazan Jr., MD 09/18/2025 11:23 AM Debridement Wound 08/05/25 Soft Tissue Necrosis Leg upper Anterior;Right;Medial Performed by: Sukhdev Bazan Jr., MD Authorized by: Sukhdev Bazan Jr., MD Consent Consent obtained? written Consent given by: patient Risks discussed? procedural risks discussed Immediately prior to the procedure a time out was called and the performing provider verified the correct patient, procedure, equipment, customer support technician, and site/side marked as required. Debridement Details Performed by: physician Debridement type: surgical Level of debridement: subcutaneous tissue Pain control: lidocaine 2% Pain control administration type: topical Pre-debridement measurements Length (cm): 9 Width (cm): 34 Depth (cm): 0.5 Surface Area (cm^2): 240.33 Post-debridement measurements Length (cm): 9 Width (cm): 34 Depth (cm): 0.6 Percent debrided: 80% Surface Area (cm^2): 240.33 Area Debrided (cm^2): 192.26 Volume (cm^3): 96.13 Tissue and other material debrided: adipose, dermis and subcutaneous tissue Devitalized tissue debrided: biofilm [...] uncontrolled documented in this encounter Care Teams Nature Photographer Relationship Specialty Start Date End Date Yenny Dhillon, GLORIA [address] [place] [address] PCP - General Nurse Practitioner 03/13/24 documented as of this encounter
--- OUTSIDE RECORDS SUMMARY | 2025-09-20 03:58 | XMS_ITS | Continuity of Care Document ---
Author Organization [facility] Address [address] [place] [address] Phone Care Team Providers Care Shield Runner Name Role Phone Alejo MSN, STRATEGIC PLANNING ANALYST, Yenny Unavailable Unavai lable Allergies, Adverse Reactions, [...] Effective Dates (start - stop) Status Comments Rosuvastatin Calcium 20 MG Oral Tablet Take 1 tablet by mouth once daily - Active Linzess 72 MCG Oral Capsule TAKE 1 CAPSULE BY MOUTH ONCE DAILY ON AN EMPTY STOMACH AT LEAST 30 MIN BEFORE FIRST MEAL OF THE DAY - Active metFORMIN HCl 500 MG Oral [...] nostril as needed 50-100 MCG - Active cefdinir 300 mg capsule take 1 capsule by oral route every 12 hours 300 MG - Active levofloxacin 500 mg tablet take [...] Location Reason(s) For Visit Diagnoses Date Provider [facility], [address] [place] [address], [address], [place] tel:[phone] No Information 5 Alejo Ramon. [address] [place], [place], [id number] , . [phone] [facility], [address] [place], [address], tel:[phone] [facility] [place] No Information 5 Aldana Kristy. [address], [place], [place], [id number] , [place]. tel:[phone] [facility], [address] [place] [address], [address], [place] tel:[phone] [facility] [place] No Information 5 Aldana Kristy. [address], [place], [place], [id number] , [place]. tel:[phone] [facility], [address] [place] [address], [address], [place] tel:[phone] [facility] [place] ED/hospital f/u (chief complaint) Hidradenitis suppurativaNicotine dependence, cigarettes, uncomplicatedBody mass index [BMI] 45.0-49.9, adultEssential (primary) hypertension 5 Dhillon Yenny. [address] [place], [place], [address] , [place]. tel: [phone] [facility], [address] [place] [address], [facility], tel:[phone] [facility] [place] Fasting Labs (chief complaint) Essential (primary) hypertension 5 Dhillon Yenny. [address] [place], [place], [address] , [place]. tel: [phone] [facility], [address] [place] [address], [facility], [place] tel:[phone] [facility] [place] No Information 5 Dhillon Yenny. [address] [place], [place], [id number] , [place]. tel: [phone] [facility], [address] [place] [address], [facility], [place] tel:[phone] [facility] [place] No Information 5 Dhillon Yenny. [address] [place], [place], [id number] , . tel: [phone] [facility], [address] [place] [address], [facility], tel:[phone] [facility] [place] No Information 5 Dhillon Yenny. [address] [place], [place], [id number] , [place]. tel: [phone] [facility], [address] [place] [address], [facility], tel:[phone] [facility] [place] Lumps on Leg (chief complaint) Body mass index [BMI] 50.0-59.9, adultDisorder of vein, unspecified 5 Dhillon Yenny. [address] [place], [place], [address] , [place]. tel: [phone] [facility], [address] [place] [address], [facility], tel:[phone] [facility] [place] No Information 5 Dhillon Yenny. [address] [place], [place], [address] [place] [address] , . tel: [phone] [facility], [address] [place] [address], [facility], tel:[phone] [facility] [place] f/u on labs (chief complaint) Encntr screen mammogram for malignant neoplasm of breastAbdominal painEssential (primary) hypertensionHyperli pidemiaNicotine dependence, cigarettes, uncomplicatedObesit yType 2 diabetes mellitus w/ diabetic neuropathyVitamin B12 deficiencyVitamin D deficiencyUTIAcute upper respiratory infection, unspecifiedBody mass index [BMI] 50.0-59.9, adult March- 5 Dhillon Yenny. [address] [place], [place], [address] , . tel:[phone] [facility], [address] [place] [address], [facility], tel:[phone] [facility] [place] complex f/u (chief complaint)Prepar e (chief complaint)Depres jaydon Screening (chief complaint) Extreme povertyAsthmaDepres sionEssential (primary) hypertensionNicotin e dependence, cigarettes, uncomplicatedObesit yType 2 diabetes mellitus w/ diabetic neuropathyAbdominal painEncounter for screening for depression 5 Dhillonpato Ramon. [address] [place], [place], [address] , . tel: [phone] [facility], [address] [place] [address], [facility], tel:[phone] [facility] [place] Medication refills (chief complaint) Essential (primary) hypertensionBody mass index [BMI] 50.0-59.9, adultChronic constipationDepress ionAsthmaNicotine dependence, cigarettes, uncomplicatedObesit yType 2 diabetes mellitus w/ diabetic neuropathyVitamin B12 deficiencyVitamin D deficiency 4 Dhillon Yenny. [address] [place], [place], [address] , . tel: [phone] [facility], [address] [place] [address], [facility], tel:[phone] [facility] [place] routine lab collection (chief complaint) No Information 4 Dhillonpato Ramon. [address] [place], [place], [address] , . tel: [phone] [facility], [address] [place] [address], [facility], tel:[phone] [facility] [place] LOWER BACK PAIN (chief complaint) Body mass index [BMI] 45.0-49.9, adultSciatica, right sideLow back painVitamin B12 deficiency 4 Dhillon Yenny. [address] [place], [place], [address] , [place]. tel:[phone] [facility], [address] [place] [address], [facility], [place] tel:[phone] [facility] [place] f/u labs (chief complaint) Vitamin B12 deficiencyBody mass index [BMI] 45.0-49.9, adultEssential (primary) hypertensionHyperli pidemiaMemory lossNicotine dependence, cigarettes, uncomplicatedObesit yType 2 diabetes mellitus w/ diabetic neuropathyVitamin D deficiencyEncntr screen mammogram for malignant neoplasm of breast 4 Dhillon Yenny. [address] [place], [place], [address] , [place]. tel:[phone] [facility], [address] [place] [address], [facility], [place] tel:[phone] [facility] [place] Fasting Labs (chief complaint) Essential (primary) hypertension 4 Dhillon Yenny. [address] [place], [place], [address] , [place]. tel:[phone] [facility], [address] [place] [address], [facility], [place] tel:[phone] [facility] [place] B12 injection (chief complaint) Vitamin B12 deficiency 4 Dhillon Yenny. [address] [place], [place], [address] , [place]. tel:[phone] [facility], [address] [place] [address], [facility], [place] tel:[phone] [facility] [place] Blood in stool (chief complaint)eructa tion (chief complaint)back pain f/u MRII (chief complaint) Anxiety disorder, unspecifiedAsthmaEs sential (primary) hypertensionLow back painExtreme povertyBody mass index [BMI] 45.0-49.9, adultEructation 4 Dhillon Yenny. [address] [place], [place], [address] , [place]. tel:[phone] [facility], [address] [place] [address], [facility], tel:[phone] [facility] [place] B12 INJECTION (chief complaint) Vitamin B12 deficiency 4 Dhillon Yenny. [address] [place], [place], [address] , [place]. tel:[phone] [facility], [address] [place] [address], [address], [place] tel:[phone] [facility] [place] f/u on labs (chief complaint) Vitamin B12 deficiencyBody mass index [BMI] 45.0-49.9, adultLow back painType 2 diabetes mellitus w/ diabetic neuropathyHyperlipi demiaNicotine dependence, cigarettes, uncomplicated 4 Dhillon Yenny. [address] [place], [place], [address] , [place]. tel:[phone] [facility], [address] [place] [address], [facility], [place] tel:[phone] [facility] [place] FASTING LABS (chief complaint) Essential (primary) hypertension 4 Dhillon Yenny. [address] [place], [place], [address] , [place]. tel:[phone] [facility], [address] [place] [address], [address], [place] tel:[phone] [facility] [place] f/u back pain (chief complaint) Low back painNicotine dependence, cigarettes, uncomplicatedSciati ca, right sideVitamin B12 deficiencyBody mass index [BMI] 45.0-49.9, adultAcute serous otitis media, bilateral 3 Dhillon Yenny. [address] [place], [place], [address] , . tel: [phone] [facility], [address] [place] [address], [facility], tel:[phone] [facility] [place] back pain (chief complaint)other (chief complaint) Sciatica, right sideLow back painBody mass index [BMI] 45.0-49.9, adult 3 Dhillon Yenny. [address] [place], [place], [address] , [place]. tel: [phone] [facility], [address] [place] [address], [facility], tel:[phone] [facility] [place] B12 INJECTION (chief complaint) Vitamin B12 deficiency 3 Dhillon Yenny. [address] [place], [place], [address] , [place]. tel: [phone] [facility], [address] [place] [address], [facility], tel:[phone] [facility] [place] B12 INJECTION (chief complaint) Vitamin B12 deficiency 3 Dhillon Yenny. [address] [place], [place], [address] , [place]. tel: [phone] [facility], [address] [place] [address], [facility], tel:[phone] [facility] [place] follow up labs (chief complaint) Body mass index [BMI] 50.0-59.9, adultType 2 diabetes mellitus w/ diabetic neuropathyVitamin B12 deficiencyEssential (primary) hypertensionDepress ionAsthmaNicotine dependence, cigarettes, uncomplicated 3 Dhillon Yenny. [address] [place], [place], [address] , [place]. tel: [phone] [facility], [address] [place] [address], [facility], [place] tel:[phone] [facility] [place] fasting labs (chief complaint) Memory lossVitamin B12 deficiencyNicotine dependence, cigarettes, uncomplicatedBody mass index [BMI] 50.0-59.9, adult Sep-2 3 Dhillon Yenny. [address] [place], [place], [address] , . tel: [phone] [facility], [address] [place] [address], [facility], tel:[phone] [facility] [place] nocturia (chief complaint) NocturiaStress incontinence (female) (male)Urinary urgencyUTIBody mass index [BMI] 50.0-59.9, adult Jul- 3 Dhillon Yenny. [address] [place], [place], [address] [place] [address] , . tel: [phone] [facility], [address] [place] [address], [facility], tel:[phone] [facility] [place] INJECTION (chief complaint) Vitamin B12 deficiency 3 Dhillon Yenny. [address] [place], [place], [address] , [place]. tel:[phone] [facility], [address] [place] [address], [facility], tel:[phone] [facility] [place] Follow up from Hospitalization (chief complaint) Body mass index [BMI] 50.0-59.9, adultAcute kidney injuryDehydrationCh shadi fletcherEssenti al (primary) hypertension 3 Dhillon Yenny. [address] [place] [place], [place], [address] , [place]. tel:[phone] [facility], [address] [place] [address], [facility], tel:[phone] [facility] [place] Injection (chief complaint) Vitamin B12 deficiency 3 Dhillon Yenny. [address] [place] [place], [place], [address] , [place]. tel: [phone] [facility], [address] [place] [address], [facility], tel:[phone] [facility] [place] FOLLOW UP ON LABS (chief complaint) Vitamin B12 deficiencyBody mass index [BMI] 50.0-59.9, adultAnxiety disorder, unspecifiedAsthmaEs sential (primary) hypertensionMorbid (severe) obesity due to excess caloriesNicotine dependence, cigarettes, uncomplicatedPain in left kneePain in right kneeType 2 diabetes mellitus w/ diabetic neuropathy 3 Dhillon Yenny. [address] [place] [place], [place], [address] , [place]. tel: [phone] [facility], [address] [place] [address], [facility], tel:[phone] [facility] [place] FASTING LABS (chief complaint)B12 INJECTION (chief complaint) Essential (primary) hypertensionDeficie ncy of other specified B group vitamins 3 Dhillon Yenny. [address] [place], [place], [address] , [place]. tel: [phone] [facility], [address] [place] [address], [facility], tel:[phone] [facility] [place] complex f/u (chief complaint) Vitamin B12 deficiencyType 2 diabetes mellitus w/ diabetic neuropathyObesityNi cotine dependence, cigarettes, uncomplicatedHidrad enitis suppurativaEssentia l (primary) hypertensionAsthmaE ncounter for other preprocedural examination 3 Dhillon Yenny. [address] [place] [place], [place], [address] , [place]. tel: [phone] [facility], [address] [place] [address], [facility], [place] tel:[phone] [facility] [place] Leg wound (chief complaint)Discus s diabetic shoes. (chief complaint) Vitamin B12 deficiencyType 2 diabetes mellitus w/ diabetic neuropathyBody mass index [BMI] 50.0-59.9, adultHidradenitis suppurativaEssentia l (primary) hypertensionCutaneo us abscess Apr- 3 Dhillon Yenny. [address] [place] [place], [place], [address] , [place]. tel:[phone] [facility], [address] [place] [address], [facility], [place] tel:[phone] [facility] [place] B12 injection (chief complaint) Vitamin B12 deficiency Jan- 3 Dhillon Yenny. [address] [place], [place], [address] , [place]. tel: [phone] [facility], [address] [place] [address], [facility], [place] tel:[phone] [facility] [place] follow up (chief complaint) Vitamin B12 deficiency Jan- 3 Dhillon Yenny. [address] [place], [place], [address] , [place]. tel:[phone] [facility], [address] [place] [address], [facility], [place] tel:[phone] [facility] [place] b12 # 3 of 6 (chief complaint) Vitamin B12 deficiency Jan- 3 Dhillon Yenny. [address] [place] [place], [place], [address] , [place]. tel:[phone] [facility], [address] [place] [address], [facility], [place] tel:[phone] [facility] [place] follow up on labs (chief complaint) Vitamin B12 deficiencyBody mass index [BMI] 50.0-59.9, adultPain in left kneePain in right kneeAcute upper respiratory infection, unspecifiedParesthe kalpesh of skinObesityDepressi onChronic constipationPrediab etesNicotine dependence, cigarettes, uncomplicated Mar-0 3 Dhillon Yenny. [address] [place], [place], [address] , . tel: [phone] [facility], [address] [place] [address], [facility], tel:[phone] [facility] b12 # 1 of 6 (chief complaint) Vitamin B12 deficiency 3 Dhillon Yenny. [address] [place] [place], [place], [address] , [place]. tel: [phone] [facility], [address] [place] [address], [facility], tel:[phone] [facility] ABRIL Establish care (chief complaint) Encounter for screening for depressionEncounter for screening examination for other mental health and behavioral disordersAnxiety disorder, unspecifiedDepressi onAsthmaVitamin D deficiencyEssential (primary) hypertensionPrediab etesChronic constipationBody mass index [BMI] 50.0-59.9, adultNicotine dependence, cigarettes, uncomplicatedMorbid (severe) obesity due to excess calories 3 Dhillonlexus Ramon. [address] [place], [place], [address] , . tel: [phone] Family History Family Member Type Diagnosis Age [...] type Covered green party ID Authoriza tion(s) [facility]- Medicaid [employer] CI [id number] [facility]- Medicaid [employer] are W[employer] [id number] Hc- Covered Under [place] CI [id number] Hch- Covered Under [place] CI [id number] Hc- Covered Under [place] CI [id number] Hc- Covered Under [place] [id number] Social History Type Description Quantity Date Captured Comments Sex Female Smoking Status No Information Sexual Orientation Straight or heterosexual Dec Gender Identity Female Chief Complaint And Reason For Visit No Information Plan Of Treatment Date Type Action Status Goal Generalized Anxi ety Disorder - 7 (SONDRA-7). Due on due Goal Pneumococcal vac cine. Due on due Goal Vitamin D. Due on due Goal Follow up Plan f or abnormal BMI (Less than 18.5, greater than 25). Due on due Goal Tobacco Use Scre ening. Due on due Goal TSH. Due on due Goal Hepatitis C Screening due Goal Vitamin B12. Due on 026 due Goal Hep B (). Due on 025 due Goal Dental exam. Due on 025 due Goal Pap/HPV testing. Due on due Goal PAP. Due on due Goal ASCVD 10 year risk. Due on due Goal Depression scree davy. Due on due Goal Hemoglobin (Pree tea/HR 9 months). Due on due Goal Taking Statin Me dication. Due on due Goal Hematocrit/Hemog lobin. Due on due Goal Obtain blood Pre ssure. Due on due Goal Dilated eye exam. Due on March due Goal Diabetes screening. Due on due Goal Foot exam. Due on due Goal Obtain Height, W eight, and BMI. Due on due Goal CMP. Due on due Goal Lipid panel. Due on 026 due Goal HPV testing. Due on 025 due Goal GFR. Due on due Goal Urinalysis due Goal Drug Abuse Scree davy Test (DAST-10). Due on due Goal CBC. Due on due Goal Urine microalbumin. Due on due Goal Tobacco screening. Due on due Goal Tobacco Use Cess ation Counseling. Due on due Goal ECG due Goal HIV screen due Goal Unhealthy drug use screening due Goal Hemoglobin A1C. Due on due Goal Tobacco screening. Due on due Goal HIV screen due Goal CMP. Due on due Goal HPV testing. Due on due Goal Pneumococcal vac cine. Due on due Goal CBC. Due on due Goal TSH. Due on due Goal Hematocrit/Hemog lobin. Due on due Goal Pap/HPV testing. Due on due Goal Obtain Height, W eight, and BMI. Due on due Goal Follow up Plan f or abnormal BMI (Less than 18.5, greater than 25). Due on due Goal Urinalysis due Goal Obtain blood Pre ssure. Due on due Goal Hep B (). Due on due Goal Lipid panel. Due on due Goal Unhealthy drug use screening due Goal Urine microalbumin. Due on due Goal ECG due Goal Dental exam. Due on due Goal Hemoglobin A1C. Due on due Goal Diabetes screening. Due on due Goal Hemoglobin (Pree tea/HR 9 months). Due on due Goal Dilated eye exam. Due on March due Goal Hepatitis C Screening due Goal Taking Statin Me dication. Due on due Goal ASCVD 10 year risk. Due on due Goal Tobacco Use Cess ation Counseling. Due on due Goal Depression scree davy. Due on due Goal Foot exam. Due on due Goal PAP. Due on due Goal Drug Abuse Scree davy Test (DAST-10). Due on due Goal Vitamin B12. Due on due Goal Tobacco Use Scre ening. Due on due Goal Vitamin D. Due on due Goal Generalized Anxi ety Disorder - 7 (SONDRA-7). Due on due Goal GFR. Due on due Goal GFR. Due on due Goal TSH. Due on due Goal Dilated eye exam. Due on March due Goal Pneumococcal vac cine. Due on due Goal HIV screen due Goal Foot exam. Due on due Goal Obtain blood Pre ssure. Due on due Goal Diabetes screening. Due on due Goal Taking Statin Me dication. Due on due Goal Hep B (1st). Due on due Goal Drug Abuse Scree davy Test (DAST-10). Due on due Goal Unhealthy drug use screening due Goal Lipid panel. Due on due Goal Hepatitis C Screening due Goal Pap/HPV testing. Due on due Goal PAP. Due on due Goal Depression scree davy. Due on due Goal Hematocrit/Hemog lobin. Due on due Goal Tobacco Use Cess ation Counseling. Due on due Goal Hemoglobin (Pree tea/HR 9 months). Due on due Goal Urine microalbumin. Due [...] Goal Urinalysis due Goal ECG due Goal Tobacco Use Scre ening. Due on due Goal Vitamin D. Due on due Goal Generalized Anxi ety Disorder - 7 (SONDRA-7). Due on due Goal HPV testing. Due on due Goal Dental exam. Due on due Goal Tobacco screening. Due on Oc due Goal CMP. Due on due Goal Lifestyle education regardin g diet completed Goal HIV screen due Goal Tobacco screening. Due on Ju due Goal ECG due Goal Tobacco Use Cess ation Counseling. Due on due Goal Dental exam. Due on due Goal Hemoglobin A1C. Due on due Goal Lipid 9-11 y due Goal Hemoglobin (Pree tea/HR 9 months). Due on due Goal Pap/HPV testing. Due on due Goal GFR. Due on due Goal Hepatitis C Screening due Goal Diabetes screening. Due on due Goal Vitamin B12. Due on due Goal Lipid panel. Due on due Goal Follow up Plan f or abnormal BMI (Less than 18.5, greater than 25). Due on due Goal Generalized Anxi ety Disorder - 7 (SONDRA-7). Due on due Goal TSH. Due on due Goal Hep B (1st). Due on due Goal Dilated eye exam. Due on March due Goal Foot exam. Due on due Goal Unhealthy drug use screening due Goal HPV testing. Due on due Goal Obtain blood Pre ssure. Due on due Goal Depression scree davy. Due on due Goal Urinalysis due Goal Lipid 17-20 y due Goal PAP. Due on due Goal Taking Statin Me dication. Due on due Goal CMP. Due on due Goal Tobacco Use Scre ening. Due on due Goal Urine microalbumin. Due on due Goal Drug Abuse Scree davy Test (DAST-10). Due on due Goal Pneumococcal vac cine. Due on due Goal CBC. Due on due Goal Hematocrit/Hemog lobin. Due on due Goal Vitamin D. Due on due Goal Obtain Height, W eight, and BMI. Due on due Goal ASCVD 10 year risk. Due on due Goal Foot exam. Due on due Goal Lipid panel. Due on 026 due Goal Diabetes screening. Due on due Goal PAP. Due on due Goal Depression scree davy. Due on due Goal Tobacco screening. Due on due Goal Tobacco Use Cess ation Counseling. Due on due Goal Dilated eye exam. Due on March due Goal CMP. Due on due Goal Vitamin D. Due on due Goal Pap/HPV testing. Due on due Goal Obtain blood Pre ssure. Due on due Goal HPV testing. Due on 025 due Goal CBC. Due on due Goal GFR. Due on due Goal Unhealthy drug use screening due Goal Hep B (1st). Due on 025 due Goal Hemoglobin A1C. Due on due Goal ASCVD 10 year risk. Due on due Goal Follow up Plan f or abnormal BMI (Less than 18.5, greater than 25). Due on due Goal TSH. Due on due Goal Pneumococcal vac cine. Due on due Goal Urinalysis due Goal Taking Statin Me dication. Due on due Goal Urine microalbumin. Due on due Goal Generalized Anxi ety Disorder - 7 (SONDRA-7). Due on due Goal Hemoglobin (Pree tea/HR 9 months). Due on due Goal ECG due Goal Hepatitis C Screening due Goal Hematocrit/Hemog lobin. Due on due Goal Drug Abuse Scree davy Test (DAST-10). Due on due Goal HIV screen due Goal Obtain Height, W eight, and BMI. Due on due Goal Vitamin B12. Due on 026 due Goal Dental exam. Due on 025 due Goal Tobacco Use Scre ening. Due on due Goal GFR. Due on due Goal Hepatitis C Screening due Goal Obtain blood Pre ssure. Due on due Goal Unhealthy drug use screening due Goal Pap/HPV testing. Due on due Goal Taking Statin Me dication. Due on due Goal Tobacco Use Cess ation Counseling. Due on due Goal Hemoglobin A1C. Due on due Goal HPV testing. Due on due Goal Follow up Plan f or abnormal BMI (Less than 18.5, greater than 25). Due on due Goal Vitamin D. Due on due Goal Lipid panel. Due on due Goal Obtain Height, W eight, and BMI. Due on due Goal Hep B (). Due on due Goal Tobacco screening. Due on due Goal Foot exam. Due on due Goal Urinalysis due Goal CBC. Due on due Goal ECG due Goal Generalized Anxi ety Disorder - 7 (SONDRA-7). Due on due Goal Depression scree davy. Due on due Goal CMP. Due on due Goal Diabetes screening. Due on due Goal Pneumococcal vac cine. Due on due Goal TSH. Due on [...] eye exam. Due on March due Goal Pneumococcal vac cine. Due on [...] (1st). Due on due Goal Tobacco Use Cess ation Counseling. Due on due Goal Lipid panel. Due on due Goal Tobacco Use Scre [...] Due on due Goal Urinalysis due Goal Foot exam. Due on due Goal Tobacco screening. Due on due Goal Drug Abuse Scree davy Test (DAST-10). Due on due Goal Vitamin B12. Due on due Goal CBC. Due on due Goal Taking Statin Me dication. Due on due Goal Urine microalbumin. Due on due Goal Lifestyle education regardin g diet completed Goal Tobacco screening. Due on due Goal Pap/HPV testing. Due on due Goal Taking Statin Me dication. Due on due Goal Generalized Anxi ety Disorder - 7 (SONDRA-7). Due on due Goal CMP. Due on due Goal TSH. Due on due Goal Drug Abuse Scree davy Test (DAST-10). Due on due Goal Tobacco Use Scre ening. Due on due Goal Vitamin D. Due on due Goal Diabetes screening. Due on due Goal Dilated eye exam. Due on March due Goal Dental exam. Due on due Goal Pneumococcal vac cine. Due on due Goal Vitamin B12. Due on due Goal Urine microalbumin. Due on due Goal Lipid panel. Due on due Goal Hep B (). Due on due Goal Urinalysis due Goal HIV screen due Goal Hemoglobin A1C. Due on due Goal Obtain Height, W eight, and BMI. Due on due Goal PAP. Due on due Goal Obtain blood Pre ssure. Due on due Goal Unhealthy drug use screening due Goal ASCVD 10 year risk. Due on due Goal CBC. Due on due Goal Hepatitis C Screening due Goal Foot exam. Due on due Goal Follow up Plan f or abnormal BMI (Less than 18.5, greater than 25). Due on due Goal Depression scree davy. Due on due Goal HPV testing. Due on due Goal GFR. Due on due Goal ECG due Goal Tobacco Use Cess ation Counseling. Due on due Goal Tobacco cessation counseling completed Goal Lifestyle education regardin g diet completed Goal Hemoglobin A1C. Due on due Goal Obtain Height, W eight, and BMI. Due on due Goal Tobacco Use Cess ation Counseling. Due on due Goal TSH. Due on due Goal Dilated eye exam. Due on March due Goal Hep B (1st). Due on due Goal Depression scree davy. Due on due Goal Foot exam. Due on due Goal Pneumococcal vac cine. Due on due Goal Taking Statin Me dication. Due on due Goal Drug Abuse Scree davy Test (DAST-10). Due on due Goal Dental exam. Due on due Goal ECG due Goal Pap/HPV testing. Due on due Goal HPV testing. Due on due Goal HIV screen due Goal Diabetes screening. Due on due Goal Urinalysis due Goal Obtain blood Pre ssure. Due on due Goal Unhealthy drug use screening due Goal Colonoscopy. Due on due Goal GFR. Due on due Goal Generalized Anxi ety Disorder - 7 (SONDRA-7). Due on due Goal ASCVD 10 year risk. Due on due Goal Lipid panel. Due on due Goal Tobacco Use Scre ening. Due on due Goal CBC. Due on due Goal Hepatitis C Screening due Goal CMP. Due on due Goal Vitamin B12. Due on 025 due Goal Follow up Plan f or abnormal BMI (Less than 18.5, greater than 25). Due on due Goal Urine microalbumin. Due on A due Goal Vitamin D. Due on due Goal PAP. Due on due Goal Mammogram. Due on due Goal Lifestyle education regardin g diet completed Goal Lipid panel. Due on due Goal HIV screen due Goal Urine microalbumin. Due on A due Goal Taking Statin Me dication. Due on due Goal Hemoglobin A1C. Due on due Goal Influenza vaccine. Due on due Goal TSH. Due on due Goal Obtain Height, W eight, and BMI. Due on due Goal Depression scree davy. Due on due Goal Generalized Anxi ety Disorder - 7 (SONDRA-7). Due on due Goal ASCVD 10 year risk. Due on due Goal Pap/HPV testing. Due on due Goal Obtain blood Pre ssure. Due on due Goal Hepatitis C Screening due Goal ECG due Goal CMP. Due on due Goal Tobacco Use Scre ening. Due on due Goal Urinalysis due Goal HPV testing. Due on due Goal Follow up Plan f or abnormal BMI (Less than 18.5, greater than 25). Due on due Goal Vitamin D. Due on due Goal Pneumococcal vac cine. Due on due Goal PAP. Due on due Goal Drug Abuse Scree davy Test (DAST-10). Due on due Goal Dental exam. Due on due Goal Colonoscopy. Due on due Goal Mammogram. Due on due Goal CBC. Due on due Goal Tobacco Use Cess ation Counseling. Due on due Goal Vitamin B12. Due on due Goal Foot exam. Due on due Goal GFR. Due on due Goal Unhealthy drug use screening due Goal Dilated eye exam. Due on March due Goal Diabetes screening. Due on A due Goal Hep B (1st). Due on due Goal Generalized Anxi ety Disorder - 7 (SONDRA-7). Due on due Goal Taking Statin Me dication. Due on due Goal Tobacco Use Scre ening. Due on due Goal Vitamin D. Due on due Goal Influenza vaccine. Due on due Goal Colonoscopy. Due on due Goal Hep B (1st). Due on due Goal ECG due Goal Lipid panel. Due on due Goal CMP. Due on due Goal Dental exam. Due on due Goal Unhealthy drug use screening due Goal Diabetes screening. Due on A due Goal Tobacco Use Cess ation Counseling. Due on due Goal Hepatitis C Screening due Goal Pneumococcal vac cine. Due on due Goal Urine microalbumin. Due on due Goal HPV testing. Due on due Goal Follow up Plan f or abnormal BMI (Less than 18.5, greater than 25). Due on due Goal CBC. Due on due Goal Obtain blood Pre ssure. Due on due Goal Obtain Height, W eight, and BMI. Due on due Goal Depression scree davy. Due on due Goal Drug Abuse Scree davy Test (DAST-10). Due on due Goal Vitamin B12. Due on due Goal TSH. Due on due Goal Pap/HPV testing. Due on due Goal ASCVD 10 year risk. Due on due Goal GFR. Due on due Goal Hemoglobin A1C. Due on due Goal Mammogram. Due on due Goal Foot exam. Due on due Goal PAP. Due on due Goal HIV screen due Goal Urinalysis due Goal Dilated eye exam. Due on March due Goal Lifestyle education regardin g diet completed Goal Tobacco cessation counseling completed Goal Hemoglobin A1C. Due on due Goal Tobacco Use Scre ening. Due on due Goal HIV screen due Goal Urinalysis due Goal PAP. Due on due Goal CBC. Due on due Goal Diabetes screening. Due on A due Goal Follow up Plan f or abnormal BMI (Less than 18.5, greater than 25). Due on due Goal ASCVD 10 year risk. Due on due Goal Hep B (1st). Due on 024 due Goal Unhealthy drug use screening due Goal Obtain Height, W eight, and BMI. Due on due Goal Vitamin D. Due on due Goal Obtain blood Pre ssure. Due on due Goal Tobacco Use Cess ation Counseling. Due on due Goal Lipid panel. Due on 029 due Goal Hepatitis C Screening due Goal Vitamin B12. Due on due Goal Urine microalbumin. Due on A due Goal CMP. Due on due Goal TSH. Due on due Goal Dental exam. Due on due Goal ECG due Goal Pneumococcal vac cine. Due on due Goal Foot exam. Due on 4 due Goal Pap/HPV testing. Due on due Goal Colonoscopy. Due on due Goal Influenza vaccine. Due on due Goal Depression scree davy. Due on due Goal GFR. Due on due Goal Generalized Anxi ety Disorder - 7 (SONDRA-7). Due on due Goal Mammogram. Due on due Goal Taking Statin Me dication. Due on due Goal Drug Abuse Scree davy Test (DAST-10). Due on due Goal HPV testing. Due on due Goal Dilated eye exam. Due on March due Goal Lifestyle education regardin g diet completed Goal Urinalysis due Goal Obtain blood Pre [...] Influenza vaccine. Due on Ap due Goal Vitamin D. Due on due [...] Goal Pap/HPV testing. Due on due Goal ASCVD 10 year [...] eye exam. Due on March due Goal Mammogram. Due on due Goal HPV testing. Due [...] on due Goal HIV screen due Goal ASCVD 10 year risk. Due on due Goal Dilated eye exam. Due on March due Goal Generalized Anxi ety Disorder - 7 (SONDRA-7). Due on due Goal Foot exam. Due on due Goal Hep B (). Due on due Goal Unhealthy drug use screening due Goal CMP. Due on due Goal Taking Statin Me dication. Due on due Goal Drug Abuse Scree davy Test (DAST-10). Due on due Goal Colonoscopy. Due on due Goal Diabetes screening. Due on due Goal Hepatitis C Screening due Goal Dental exam. Due on due Goal Obtain Height, W eight, and BMI. Due on due Goal Obtain blood Pre ssure. Due on due Goal Pneumococcal vac cine. Due on due Goal Tobacco Use Cess ation Counseling. Due on due Goal PAP. Due on due Goal Urine microalbumin. Due on due Goal Hemoglobin A1C. Due on due Goal Tobacco Use Scre ening. Due on due Goal Lipid panel. Due on due Goal GFR. Due on due Goal Foot exam. Due on due Goal HIV screen due Goal Hemoglobin A1C. Due on due Goal Drug Abuse Scree davy Test (DAST-10). Due on due Goal ECG due Goal Tobacco Use Scre ening. Due on due Goal HPV testing. Due on due Goal Unhealthy drug use screening due Goal Pap/HPV testing. Due on due Goal CMP. Due on due Goal TSH. Due on due Goal Depression scree davy. Due on due Goal Mammogram. Due on due Goal Taking Statin Me dication. Due on due Goal Diabetes screening. Due on due Goal Colonoscopy. Due on due Goal ASCVD 10 year risk. Due on due Goal Urine microalbumin. Due on due Goal Hepatitis C Screening due Goal Tobacco Use Cess ation Counseling. Due on due Goal Vitamin D. Due on due Goal Vitamin B12. Due on due Goal Urinalysis due Goal CBC. Due on due Goal PAP. Due on due Goal Dental exam. Due on due Goal Obtain Height, W eight, and BMI. Due on due Goal GFR. Due on due Goal Hep B (1st). Due on due Goal Generalized Anxi ety Disorder - 7 (SONDRA-7). Due on due Goal Dilated eye exam. Due on March due Goal Follow up Plan f or abnormal BMI (Less than 18.5, greater than 25). Due on due Goal Obtain blood Pre ssure. Due on due Goal Influenza vaccine. Due on due Goal Lipid panel. Due on due Goal Pneumococcal vac cine. Due on due Goal Lifestyle education regardin g diet completed Goal Tobacco cessation counseling completed Goal Tobacco Use Cess ation Counseling. Due on due Goal Hepatitis C Screening due Goal ASCVD 10 year risk. Due on due Goal Dental exam. Due on due Goal Urine microalbumin. Due on due Goal Taking Statin Me dication. Due on due Goal Hemoglobin A1C. Due on due Goal Obtain blood Pre ssure. Due on due Goal Vitamin B12. Due on due Goal Generalized Anxi ety Disorder - 7 (SONDRA-7). Due on due Goal Unhealthy drug use screening due Goal Diabetes screening. Due on due Goal Foot exam. Due on due Goal Lipid panel. Due on due Goal Dilated eye exam. Due on Dec due Goal Hep B (1st). Due on due Goal Vitamin D. Due on due Goal HPV. Due on due Goal CBC. Due on due Goal GFR. Due on due Goal Depression scree davy. Due on due Goal CMP. Due on due Goal Mammogram. Due on due Goal Drug Abuse Scree davy Test (DAST-10). Due on due Goal Influenza vaccine. Due on due Goal TSH. Due on due Goal Urinalysis due Goal PAP. Due on due Goal FOBT. Due on due Goal Tobacco Use Scre ening. Due on due Goal HPV testing. Due on due Goal Pap/HPV testing. Due on due Goal HIV screen due Goal Colonoscopy. Due on due Goal ECG due Goal Pneumococcal vac cine. Due on due Goal Follow up Plan for abnormal BMI (Less than 18.5, greater than 25). Due on due Goal Obtain Height, W eight, and BMI. Due on due Goal Hemoglobin A1C. Due on due Goal GFR. Due on due Goal Urinalysis due Goal Influenza vaccine. Due on due Goal Dental exam. Due on due Goal FOBT. Due on due Goal Foot exam. Due on due Goal Pneumococcal vac cine. Due on due Goal Tobacco Use Scre ening. Due on due Goal Generalized Anxi ety Disorder - 7 (SONDRA-7). Due on due Goal Depression scree davy. Due on due Goal Vitamin B12. Due on due Goal Mammogram. Due on due Goal Taking Statin Me dication. Due on due Goal Colonoscopy. Due on due Goal Obtain Height, W eight, and BMI. Due on due Goal Diabetes screening. Due on due Goal Dilated eye exam. Due on Nov due Goal Unhealthy drug use screening due [...] Hep B (). Due on due Goal HPV testing. Due on due Goal CMP. Due on due Goal HPV. Due on due Goal Urine microalbumin. Due on due Goal Pap/HPV testing. Due on due Goal ECG due Goal Lipid panel. Due on due Goal TSH. Due on due Goal Obtain blood Pre ssure. Due on due Goal Lifestyle education regardin g diet completed Goal Tobacco cessation counseling completed Goal Dilated eye exam. Due on Nov [...] Goal Dental exam. Due on due Goal Depression scree davy. Due on due Goal HIV screen due Goal TSH. Due on due Goal Tobacco Use Cess ation Counseling. Due on due Goal Generalized Anxi ety Disorder - 7 (SONDRA-7). Due on due Goal CBC. Due on due Goal Diabetes screening. Due on due Goal HPV testing. Due on due Goal Unhealthy drug use screening due Goal FOBT. Due on due Goal Hepatitis C Screening due Goal Urinalysis due Goal Vitamin D. Due on due Goal Mammogram. Due on due Goal HPV. Due on due Goal Lipid panel. Due on due Goal Influenza vaccine. Due on due Goal ECG due Goal Hemoglobin A1C. Due on due Goal Pap/HPV testing. Due on due Goal Colonoscopy. Due on due Goal GFR. Due on due Goal Drug Abuse Scree davy Test (DAST-10). Due on due Goal PAP. Due on due Goal Hep B (1st). Due on due Goal CMP. Due on due Goal FOBT. Due on due Goal CMP. Due on due Goal Unhealthy drug use screening due Goal Vitamin B12. Due on due Goal Generalized Anxi ety Disorder - 7 (SONDRA-7). Due on due Goal Hemoglobin A1C. Due on due Goal Urine microalbumin. Due on due Goal Hepatitis C Screening due Goal Foot exam. Due on due Goal GFR. Due on due Goal HIV screen due Goal Depression scree davy. Due on due Goal Tobacco Use Scre ening. Due on due Goal Obtain Height, W eight, and BMI. Due on due Goal HPV testing. Due on due Goal Tobacco Use Cess ation Counseling. Due on due Goal Hep B (). Due on due Goal Colonoscopy. Due on due Goal Diabetes screening. Due on due Goal Dental exam. Due on due Goal CBC. Due on due Goal HPV. Due on due Goal Influenza vaccine. Due on due Goal TSH. Due on due Goal Lipid panel. Due on 028 due Goal Vitamin D. Due on due Goal Dilated eye exam. Due on Oct due Goal ASCVD 10 year risk. Due on due Goal Follow up Plan f or abnormal BMI (Less than 18.5, greater than 25). Due on due Goal Urinalysis due Goal Drug Abuse Scree davy Test (DAST-10). Due on due Goal Mammogram. Due on 3 due Goal Pneumococcal vac cine. Due on due Goal Pap/HPV testing. Due on due Goal PAP. Due on due Goal Taking Statin Me dication. Due on due Goal Obtain blood Pre ssure. Due on due Goal ECG due Goal Lifestyle education regardin g diet completed Goal Tobacco cessation counseling completed Goal HIV screen due Goal Unhealthy drug u se screening. Due on due Goal Influenza vaccine. Due on due Goal Generalized Anxi ety Disorder - 7 (SONDRA-7). Due on due Goal Diabetes screening. Due on due Goal Depression scree davy. Due on due Goal Vitamin B12. Due on 024 due Goal GFR. Due on due Goal Foot exam. Due on 4 due Goal PAP. Due on due Goal Tobacco Use Cess ation Counseling. Due on due Goal Urinalysis due Goal ASCVD 10 year risk. Due on due Goal Hepatitis C Screening due Goal Vitamin D. Due on 4 due Goal TSH. Due on due Goal Taking Statin Me dication. Due on due Goal Dental exam. Due on due Goal Obtain blood Pre ssure. Due on due Goal Lipid panel. Due on due Goal ECG due Goal Hep B (1st). Due on due Goal Hemoglobin A1C. Due on due Goal HPV testing. Due on due Goal Dilated eye exam. Due on Oct due Goal Urine microalbumin. Due on D due Goal Drug Abuse Scree davy Test (DAST-10). Due on due Goal Mammogram. Due on due Goal CBC. Due on due Goal Pap/HPV testing. Due on due Goal HPV. Due on due Goal FOBT. Due on due Goal Colonoscopy. Due on due Goal Pneumococcal vac cine. Due on due Goal Follow up Plan f or abnormal BMI (Less than 18.5, greater than 25). Due on due Goal CMP. Due on due Goal Obtain Height, W eight, and BMI. Due on due Goal Tobacco Use Scre ening. Due on due Goal Lifestyle education regardin g diet completed Goal Tobacco cessation counseling completed Goal Taking Statin Me dication. Due on due Goal GFR. Due on due Goal Urinalysis due Goal Dental exam. Due on due Goal Vitamin B12. Due on due Goal Obtain Height, W eight, and BMI. Due on due Goal ECG due Goal Dilated eye exam. Due on Sep due Goal Vitamin D. Due on due Goal HIV screen due Goal HPV. Due on due Goal Generalized Anxi ety Disorder - 7 (SONDRA-7). Due on due Goal Diabetes screening. Due on due Goal Lipid panel. Due on due Goal ASCVD 10 year risk. Due on due Goal TSH. Due on due Goal Tobacco Use Cess ation Counseling. Due on due Goal Obtain blood Pre ssure. Due on due Goal Influenza vaccine. Due on due Goal Foot exam. Due on due Goal Unhealthy drug use screening due Goal Follow up Plan f or abnormal BMI (Less than 18.5, greater than 25). Due on due Goal Depression scree davy. Due on due Goal CBC. Due on due Goal CMP. Due on due Goal Pap/HPV testing. Due on due Goal Colonoscopy. Due on due Goal Hepatitis C Screening due Goal HPV testing. Due on 023 due Goal PAP. Due on due Goal Hemoglobin A1C. Due on due Goal Hep B (). Due on 023 due Goal Drug Abuse Scree davy Test (DAST-10). Due on due Goal Tobacco Use Scre ening. Due on due Goal Mammogram. Due on due Goal FOBT. Due on due Goal Pneumococcal vac cine. Due on due Goal Urine microalbumin. Due on due Goal CMP. Due on due Goal HIV screen due Goal Hep B (1st). Due on due Goal Mammogram. Due on due Goal Pap/HPV testing. Due on due Goal HPV. Due on due Goal CBC. Due on due Goal Follow up Plan f or abnormal BMI (Less than 18.5, greater than 25). Due on due Goal GFR. Due on due Goal Lipid panel. Due on 028 due Goal Drug Abuse Scree davy Test (DAST-10). Due on due Goal ECG due Goal Urinalysis due Goal Hepatitis C Screening due Goal Obtain blood Pre ssure. Due on due Goal Taking Statin Me dication. Due on due Goal FOBT. Due on due Goal PAP. Due on due Goal ASCVD 10 year risk. Due on due Goal Vitamin D. Due on due Goal Generalized Anxi ety Disorder - 7 (SONDRA-7). Due on due Goal Vitamin B12. Due on 024 due Goal Obtain Height, W eight, and BMI. Due on due Goal Tobacco Use Scre ening. Due on due Goal Dental exam. Due on due Goal TSH. Due on due Goal Unhealthy drug use screening due Goal HPV testing. Due on due Goal Foot exam. Due on due Goal Colonoscopy. Due on due Goal Hemoglobin A1C. Due on due Goal Depression scree davy. Due on due Goal Pneumococcal vac cine. Due on due Goal Influenza vaccine. Due on Oc due Goal Dilated eye exam. Due on Aug due Goal Tobacco Use Cess ation Counseling. Due on due Goal Diabetes screening. Due on S due Goal Urine microalbumin. Due on O due Goal Tobacco Use Scre ening. Due on due Goal HPV. Due on due Goal HPV testing. Due on 023 due Goal Influenza vaccine. Due on Oc due Goal Pap/HPV testing. Due on due Goal Vitamin B12. Due on 024 due Goal Lipid panel. Due on 028 due Goal HIV screen due Goal PAP. Due on due Goal Dental exam. Due on due Goal Obtain blood Pre ssure. Due on due Goal Dilated eye exam. Due on Aug due Goal Hepatitis C Screening due Goal Drug Abuse Scree davy Test (DAST-10). Due on due Goal Diabetes screening. Due on due Goal Urinalysis due Goal Depression scree davy. Due on due Goal CMP. Due on due Goal Vitamin D. Due on due Goal Pneumococcal vac cine. Due on due Goal ASCVD 10 year risk. Due on due Goal GFR. Due on due Goal Colonoscopy. Due on due Goal Foot exam. Due on due Goal FOBT. Due on due Goal ECG due Goal Obtain Height, W eight, and BMI. Due on due Goal Taking Statin Me dication. Due on due Goal Tobacco Use Cess ation Counseling. Due on due Goal CBC. Due on due Goal Hemoglobin A1C. Due on due Goal Hep B (1st). Due on due Goal TSH. Due on due Goal Follow up Plan f or abnormal BMI (Less than 18.5, greater than 25). Due on due Goal Generalized Anxi ety Disorder - 7 (SONDRA-7). Due on due Goal Urine microalbumin. Due on due Goal Unhealthy drug use screening due Goal Mammogram. Due on due Goal Tobacco cessation counseling completed Goal Lifestyle education regardin g diet completed Goal Unhealthy drug use screening due Goal Tobacco Use Cess ation Counseling. Due on due Goal Lipid panel. Due on due Goal Urinalysis due Goal Vitamin D. Due on due Goal ECG due Goal Dental exam. Due on due Goal HPV. Due on due Goal CMP. Due on due Goal Foot exam. Due on 4 due Goal Hepatitis C Screening due Goal Colonoscopy. Due on due Goal Generalized Anxi ety Disorder - 7 (SONDRA-7). Due on due Goal Depression scree davy. Due on due Goal Pneumococcal vac cine. Due on due Goal Dilated eye exam. Due on Jul due Goal Mammogram. Due on due Goal TSH. Due on due Goal Hep B (). Due on due Goal ASCVD 10 year risk. Due on due Goal Obtain blood Pre ssure. Due on due Goal PAP. Due on due Goal HPV testing. Due on due Goal CBC. Due on due Goal FOBT. Due on due Goal Obtain Height, W eight, and BMI. Due on due Goal Follow up Plan f or abnormal BMI (Less than 18.5, greater than 25). Due on due Goal Taking Statin Me dication. Due on due Goal GFR. Due on due Goal Urine microalbumin. Due on due Goal Tobacco Use Scre ening. Due on due Goal Pap/HPV testing. Due on due Goal Vitamin B12. Due on 024 due Goal Diabetes screening. Due on due Goal HIV screen due Goal Drug Abuse Scree davy Test (DAST-10). Due on due Goal Hemoglobin A1C. Due on due Goal Lifestyle education regardin g diet completed Goal ASCVD 10 year risk. Due on due Goal Hepatitis C Screening due Goal Pneumococcal vac cine. Due on due Goal TSH. Due on due Goal Taking Statin Me dication. Due on due Goal Tobacco Use Scre ening. Due on due Goal CMP. Due on due Goal Obtain blood Pre ssure. Due on due Goal Hep B (). Due on 023 due Goal Dilated eye exam. Due on Jul due Goal PAP. Due on due Goal Mammogram. Due on due Goal Urinalysis due Goal HPV. Due on due Goal Obtain Height, W eight, and BMI. Due on due Goal Urine microalbumin. Due on S [...] Vitamin B12. Due on 024 due Goal Influenza vaccine. Due on due Goal ECG due Goal Diabetes screening. Due on due Goal HPV testing. Due on due Goal Pap/HPV testing. Due on due Goal GFR. Due on due Goal Vitamin D. Due on due Goal Dental exam. Due on due Goal Follow up Plan f or abnormal BMI (Less than 18.5, greater than 25). Due on due Goal Foot exam. Due on due Goal Depression scree davy. Due on due Goal Lipid panel. Due on due Goal Hemoglobin A1C. Due on due Goal Lifestyle education regardin g diet completed Goal CMP. Due on due Goal Pneumococcal [...] Due on A due Goal Hep B (1st). Due on due Goal Mammogram. Due on due Goal Generalized Anxi ety Disorder - 7 (SONDRA-7). Due on due Goal Dilated eye exam. Due on Jun due Goal Influenza vaccine. Due on due Goal Vitamin D. Due on due Goal PAP. Due on due Goal Unhealthy drug use screening due Goal Vitamin B12. Due on due Goal FOBT. Due on due Goal ECG due Goal Diabetes screening. Due on due Goal ASCVD 10 year risk. Due on due Goal Taking Statin Me dication. Due on due Goal Dental exam. Due on due Goal Urinalysis. Due on due Goal Tobacco Use Cess ation Counseling. Due on due Goal HPV testing. Due on due Goal GFR. Due on due Goal HPV. Due on due Goal Foot exam. Due on due Goal Obtain Height, W eight, and BMI. Due on due Goal Taking Statin Me dication. Due on due Goal Dental exam. Due on due Goal GFR. Due on due Goal Dilated eye exam. Due on Jun due Goal Pap/HPV testing. Due on due Goal PAP. Due on due Goal Vitamin D. Due on due Goal HPV testing. Due on due Goal Diabetes screening. Due on due Goal Lipid panel. Due on due Goal Urinalysis. Due on due Goal Tobacco Use Cess ation Counseling. Due on due Goal Foot exam. Due on due Goal Influenza vaccine. Due on due Goal TSH. Due on due Goal Colonoscopy. Due on due Goal Hep B (1st). Due on due Goal Hemoglobin A1C. Due on due Goal HPV. Due on due Goal HIV screen due Goal CMP. Due on due Goal Hepatitis C Screening due Goal Tobacco Use Scre ening. Due on due Goal Obtain Height, W eight, and BMI. Due on due Goal ECG due Goal Obtain blood Pre ssure. Due on due Goal ASCVD 10 year risk. Due on due Goal Generalized Anxi ety Disorder - 7 (SONDRA-7). Due on due Goal FOBT. Due on due Goal Unhealthy drug use screening due Goal Follow up Plan f or abnormal BMI (Less than 18.5, greater than 25). Due on due Goal Urine microalbumin. Due on A due Goal Mammogram. Due on due Goal CBC. Due on due Goal Vitamin B12. Due on 024 due Goal Depression scree davy. Due on due Goal Pneumococcal vac cine. Due on due Goal Drug Abuse Scree davy Test (DAST-10). Due on due Goal Lifestyle education regardin g diet completed Goal HPV. Due on due Goal ASCVD 10 year risk. Due on due Goal Tobacco Use Scre ening. Due on due Goal FOBT. Due on due Goal Dental exam. Due on 023 due Goal Hepatitis C Screening due Goal Mammogram. Due on due Goal Foot exam. Due on 4 due Goal Unhealthy drug use screening due Goal Obtain blood Pre ssure. Due on due Goal Generalized Anxi ety Disorder - 7 (SONDRA-7). Due on due Goal Tobacco Use Cess ation Counseling. Due on due Goal Diabetes screening. Due on due Goal Follow up Plan f or abnormal BMI (Less than 18.5, greater than 25). Due on due Goal Pap/HPV testing. Due on due Goal Pneumococcal vac cine. Due on due Goal Urinalysis. Due on due Goal ECG due Goal Taking Statin Me dication. Due on due Goal GFR. Due on due Goal Urine microalbumin. Due on due Goal HIV screen due Goal CMP. Due on due Goal Vitamin B12. Due on due Goal Obtain Height, W eight, and BMI. Due on due Goal Influenza vaccine. Due on due Goal Hep B (1st). Due on due Goal Dilated eye exam. Due on May due Goal TSH. Due on due Goal Depression scree davy. Due on due Goal Vitamin D. Due on due Goal Lipid panel. Due on 028 due Goal CBC. Due on due Goal HPV testing. Due on due Goal Colonoscopy. Due on due Goal Hemoglobin A1C. Due on due Goal Drug Abuse Scree davy Test (DAST-10). Due on due Goal PAP. Due on due Goal ASCVD 10 year risk. Due on due Goal Taking Statin Me dication. Due on due Goal Obtain Height, W eight, and BMI. Due on due Goal Hepatitis C Screening due Goal Lipid panel. Due on 028 due Goal Depression scree davy. Due on due Goal Mammogram. Due on due Goal Hemoglobin A1C. Due on due Goal Follow up Plan f or abnormal BMI (Less than 18.5, greater than 25). Due on due Goal Tobacco Use Cess ation Counseling. Due on due Goal Hep B (1st). Due on 023 due Goal Vitamin D. Due on 4 due Goal TSH. Due on due Goal ECG due Goal PAP. Due on due Goal Tobacco Use Scre ening. Due on due Goal HIV screen due Goal Influenza vaccine. Due on due Goal HPV testing. Due on 023 due Goal Vitamin B12. Due on 024 due Goal Foot exam. Due on 4 due Goal Dilated eye exam. Due on Apr due Goal Urinalysis. Due on 23 due Goal CBC. Due on due Goal Urine microalbumin. Due on due Goal Unhealthy drug use screening due Goal Generalized Anxi ety Disorder - 7 (SONDRA-7). Due on due Goal CMP. Due on due Goal FOBT. Due on due Goal Drug Abuse Scree davy Test (DAST-10). Due on due Goal Obtain blood Pre ssure. Due on due Goal Pap/HPV testing. Due on due Goal Pneumococcal vac cine. Due on due Goal Dental exam. Due on 023 due Goal Colonoscopy. Due on 023 due Goal HPV. Due on due Goal GFR. Due on due Goal Diabetes screening. Due on due Goal Lifestyle education regardin g diet completed Goal Tobacco cessation counseling completed Goal GFR. Due on due Goal Generalized Anxi ety Disorder - 7 (SONDRA-7). Due on due Goal HIV screen due Goal Lipid panel. Due on 028 due Goal PAP. Due on due Goal Follow up Plan f or abnormal BMI (Less than 18.5, greater than 25). Due on due Goal TSH. Due on due Goal Influenza vaccine. Due on due Goal HPV testing. Due on due Goal CMP. Due on due Goal Urinalysis. Due on due Goal Hepatitis C Screening due Goal Vitamin B12. Due on 024 due Goal Unhealthy drug use screening due Goal HPV. Due on due Goal Dental exam. Due on due Goal Obtain blood Pre ssure. Due on due Goal Mammogram. Due on due Goal Hemoglobin A1C. Due [...] due Goal FOBT. Due on due Goal Dilated eye exam. Due on Apr due Goal ECG due Goal Diabetes screening. Due on due Goal Pap/HPV testing. Due on due Goal Vitamin D. Due on due Goal Hep B (1st). Due on due Goal Taking Statin Me dication. Due on due Goal Drug Abuse Scree davy Test (DAST-10). Due on due Goal Depression scree davy. Due on due Goal Pneumococcal vac cine. Due on due Goal Foot exam. Due on due Goal Foot exam. Due on due Goal Vitamin D. Due on due Goal Vitamin B12. Due on 024 due Goal Obtain blood Pre ssure. Due on due Goal Diabetes screening. Due on F due Goal ASCVD 10 year risk. Due on M due Goal HPV. Due on due Goal Follow up Plan f or abnormal BMI (Less than 18.5, greater than 25). Due on due Goal CBC. Due on due Goal ECG due Goal FOBT. Due on due Goal Unhealthy drug use screening due Goal Drug Abuse Scree davy Test (DAST-10). Due on due Goal Tobacco Use Cess ation Counseling. Due on due Goal Hemoglobin A1C. Due on due Goal HPV testing. Due on 023 due Goal Pneumococcal vac cine. Due on due Goal Mammogram. Due on due Goal CMP. Due on due Goal Obtain Height, W eight, and BMI. Due on due Goal Dilated eye exam. Due on March due Goal Depression scree davy. Due on due Goal Hepatitis C Screening due Goal Urine microalbumin. Due on due Goal Tobacco Use Scre ening. Due on due Goal Pap/HPV testing. Due on due Goal Colonoscopy. Due on due Goal Urinalysis. Due on due Goal Generalized Anxi ety Disorder - 7 (SONDRA-7). Due on due Goal Hep B (). Due on due Goal HIV screen due Goal TSH. Due on due Goal Dental exam. Due on due Goal PAP. Due on due Goal Lipid panel. Due on due Goal GFR. Due on due Goal Tobacco cessation counseling [...] Goal Hemoglobin A1C. Due on due Goal Urinalysis. Due on due Goal PAP. Due on due Goal Lipid panel. Due on due Goal TSH. Due on due Goal Mammogram. Due on due Goal ECG. Due on due Goal CBC. Due on due Goal Influenza vaccine. Due on due Goal Generalized Anxi ety Disorder - 7 (SONDRA-7). Due on due Goal Drug Abuse Scree davy Test (DAST-10). Due on due Goal HIV screen. Due on due Goal Obtain Height, W eight, and BMI. Due on due Goal Depression scree davy. Due on due Goal Pap/HPV testing. Due on due Goal FOBT. Due on due Goal Hepatitis C Scre ening. Due on due Goal Pneumococcal vac cine. Due on due Goal Tobacco Use Scre ening. Due on due Goal CMP. Due on due Goal Vitamin D. Due on due Goal Follow up Plan f or abnormal BMI (Less than 18.5, greater than 25). Due on due Goal Tobacco Use Cess ation Counseling. Due on due Goal HPV. Due on due Goal Colonoscopy. Due on due Goal Unhealthy drug use screening due Goal Obtain blood Pre ssure. Due on due Goal Diabetes screening. Due on A due Goal HPV testing. Due on due Goal Vitamin B12. Due on due Goal Lifestyle education regardin g diet completed Goal Pap/HPV testing. Due on due Goal Obtain Height, W eight, and BMI. Due on due Goal CMP. Due on due Goal HPV. Due on due Goal ECG. Due on due Goal Lipid panel. Due on due Goal Obtain blood Pre ssure. Due on due Goal TSH. Due on due Goal Drug Abuse Scree davy Test (DAST-10). Due on due Goal Unhealthy drug use screening due Goal Hepatitis C Scre ening. Due on due Goal Tobacco Use Cess ation Counseling. Due on due Goal Follow up Plan f or abnormal BMI (Less than 18.5, greater than 25). Due on due Goal Mammogram. Due on due Goal HPV testing. Due on due Goal FOBT. Due on due Goal HIV screen. Due on due Goal CBC. Due on due Goal Vitamin D. Due on due Goal Generalized Anxi ety Disorder - 7 (SONDRA-7). Due on due Goal Diabetes screening. Due on due Goal Urinalysis. Due on due Goal Vitamin B12. Due on due Goal Colonoscopy. Due on due Goal Tobacco Use Scre ening. Due on due Goal PAP. Due on due Goal Depression scree davy. Due on due Goal Influenza vaccine. Due on due Goal Drug Abuse Scree davy Test (DAST-10). Due on due Goal HPV testing. Due on due Goal Influenza vaccine. Due on due Goal TSH. Due on due Goal Lipid panel. Due on due Goal Urinalysis. Due on due Goal Hepatitis C Scre ening. Due on due Goal Vitamin B12. Due on due Goal HIV screen. Due on due Goal Mammogram. Due on due Goal Obtain blood Pre ssure. Due on due Goal ECG. Due on due Goal Generalized Anxi ety [...] Goal Pap/HPV testing. Due on due Goal Depression scree davy. Due on due Goal Tobacco Use Cess ation Counseling. Due on due Goal FOBT. Due on due Goal CMP. Due on due Goal HPV. Due on due Goal Obtain Height, W eight, and BMI. Due on due Goal Urinalysis. Due on due Goal Follow up Plan f or abnormal BMI (Less than 18.5, greater than 25). Due on due Goal Colonoscopy. Due on due Goal CMP. Due on due Goal Mammogram. Due on due Goal Tobacco Use Scre ening. Due on due Goal Generalized Anxi ety Disorder - 7 (SONDRA-7). Due on due Goal Lipid panel. Due on due Goal Influenza vaccine. Due on due Goal ECG. Due on due Goal TSH. Due on due Goal PAP. Due on due Goal Unhealthy drug use screening due Goal Vitamin B12. Due on due Goal Obtain blood Pre ssure. Due on due Goal Pap/HPV testing. Due on due Goal Diabetes screening. Due on due Goal FOBT. Due on due Goal Depression scree davy. Due on due Goal CBC. Due on due Goal Drug Abuse Scree davy Test (DAST-10). Due on due Goal Hepatitis C Scre ening. Due on due Goal Vitamin D. Due on due Goal HPV. Due on due Goal Tobacco Use Cess ation Counseling. Due on due Goal HIV screen. Due on due Goal HPV testing. Due on due Goal Colonoscopy. Due on due Goal Generalized Anxi ety Disorder - 7 (SONDRA-7). Due on due Goal Influenza vaccine. Due on Pr due Goal Tobacco Use Cess ation Counseling. Due on due Goal ECG. Due on due Goal Drug Abuse Scree davy Test (DAST-10). Due on due Goal Vitamin B12. Due on due Goal Vitamin D. Due on due Goal HPV. Due on due Goal Obtain blood Pre ssure. Due on due Goal Mammogram. Due on due Goal TSH. Due on due Goal Urinalysis. Due on due Goal Obtain Height, W eight, and BMI. Due on due Goal Unhealthy drug use screening due Goal HPV testing. Due on due Goal CBC. Due on due Goal Tobacco Use Scre ening. Due on due Goal FOBT. Due on due Goal Hepatitis C Scre ening. Due on due Goal Pap/HPV testing. Due on due Goal PAP. Due on due Goal HIV screen. Due on due Goal CMP. Due on [...] due Goal Urinalysis. Due on due Goal ECG. Due on due Goal Obtain blood Pre ssure. Due on due Goal Lipid panel. Due on 023 due Goal Generalized Anxi ety Disorder - [...] on due Goal Vitamin D. Due on 3 due Goal Vitamin B12. Due on 023 due Goal Tobacco Use Scre ening. Due on due Goal HPV. Due on due Goal TSH. Due on due Goal Influenza vaccine. Due on due Goal Diabetes screening. Due on due Goal Hepatitis C Scre ening. Due on due Goal Pap/HPV [...] Appointment date/timeframe: 04/06/2024 ordered Referral Referred To: [facility] Ordered: Referrals: Physical Medicine and Rehabilitation. [facility]. Location: [place], [place]. Evaluate and treat Appointment date/timeframe: 02/09/2024 ordered Referral Ordered: MRI LUMBAR SPINE W/O DYE Bilateral spine, lumbar Appointment date/timeframe: 12/19/2023 ordered Referral Ordered: X-RAY EXAM OF LOWER SPINE Right spine, lumbar Appointment date/timeframe: 1 Day ordered Referral Referred To: Nicole Turner Ordered: Referrals: Neurology. Nicole Turner. Location: [place]. Evaluate and treat Appointment date/timeframe: 10/11/2023 ordered Referral Referred To: Uro-gynecology Ordered: Referrals: Urology. Uro-gynecology. Location: [place]. Evaluate and treat Appointment date/timeframe: 08/31/2023 ordered Referral Ordered: Vitamin b12 injectionStrength 1000, Dose 1000 mcg Intramuscular Left deltoid ordered Referral Referred To: [facility] Ordered: Referrals: Radiotherapy. [facility]. Location: [place]. Diagnostic testing Appointment date/timeframe: 1 Week ordered Referral Referred To: [facility] Ordered: Referrals: Orthopedic Surgery. [facility]. Location: [facility]. Evaluate and treat Appointment date/timeframe: 01/21/2023 ordered Referral Ordered: X-RAY EXAM OF KNEES Bilateral ordered Referral Referred To: [facility] [address] [place], [address] [phone] Ordered: Referrals: Podiatry. [facility]. Location: [place], [place]. Evaluate and treat Appointment date/timeframe: 02/04/2023 ordered Referral Referred To: [facility] [address], [place], [id number] [phone] Ordered: Referrals: Psychiatry. [facility]. Evaluate and treat Appointment date/timeframe: 2 Weeks ordered Referral Referred To: [facility] Ordered: Referrals: Gastroenterology. [facility]. Evaluate and treat Appointment date/timeframe: 03/31/2023 ordered Future Order: Lab Order CBC (INC LUDES DIFF/PLT) ([id number]), Scheduled for: Ordered Future Order: Lab Order COMPREHE NSIVE METABOLIC PANEL ([id number]), Scheduled for: Ordered Future Order: Lab Order HEMOGLOB IN A1C ([id number]), Scheduled for: Ordered Future Order: Lab Order LIPID PA LEWIS ([id number]), Scheduled for: Ordered Future Order: Lab Order TSH W/RE FLEX TO FREE T4 ([id number]), Scheduled for: Ordered Future Order: Lab Order VITAMIN B12 ([id number]), Scheduled for: Ordered History Of Present Illness Encounter Date Complaint History Of Prese nt Illness ED/hospital f/u Nedia is here to day for ED/Hospital follow [...] w/ wound care today at 1 at [facility].She does appear pale today, but [...] made aware. Pt is already est with [facility]. -AMIRA FOOTE complex f/u Cristina is here to day for fasting labs and complex follow upDepression- worse- sees MCCCRefills of Cymbalta sent- [facility]/ [facility] at 07 of AprilABD PAinRLQ, buldge [...] but is unable to see her r/t [facility] policy she will have to be a [...] fighting. She was able to see the upper caser Evon High for [facility] today and together decided that Cristina would go to [facility] for emergent help. She was transported by the [place] police from here to there. Medication refills for [...] 3 monthsCardiology month f/edenilson changes in medicationsEKG- Stableshe is to RTC 6 monthsGastro 02/28/24 f/u apptwill repeat celiac testing in is to f/u in March with them [...] since change of medication- managed through Glenis, PMHNP-MCCDarwino more blackouts since starting c-papMRI of brain [...] like rotten eggs.She has GI established at [place]. She has appt on 03/19/24. B12 INJECTION [...] 58WBC 17- denies illness today- some sinus gxolbldvuwH5m 5.4CBC okTSH okB12 595B12 injection todayContinues w/ lower back pain now ongoing for 2 monthsSHe had xray of [place] spine 10/18/23: no acute processno fractures, no malalighnment. Mild anterior osteophyte formation @ L2-L3 and L3-N1hyvahl hx of degenerative disc diseasePain continues- unchanged [...] Mild anterior osteophyte formation @ L2-L3 and L3-S4pcuseq hx of degenerative disc diseasePain continues- unchangeddeclines [...] weeks she reports a shocking pain in usnshine le below the knees that causes her [...] 485- RTC 2 weeks for next b12 iinjectionShcandida had carpal tunnel sx on her left [...] or the eventStates this did happen before 4883-6439 Went to Neuurology when she was 19- was evaluated in [place]-for something similar. Was dx with adolescent seizures [...] carpal tunnel sx on 08.08.23 - at [place] Dr. Sorto.Denies cp, dizziness, no faintingCurrently no new medicationsDoes smoke marijuana- no other recreational drugs, or substances, no ojcnmyl4oa weight loss- continues ozempicdoing well nocturia The [...] is here today after being admitted to [facility] in [place], [place] on 06.08.23 for dehydration. Pt was transferred from [place] to [facility] and discharged on 06.09.23. She states that her Lexapro was recently increased from 10 mg to 20 mg and for that reason, while in the sun got dehydrated, she reports she dropped her dose back down to 10 mg until she can see the prescriber again (Glenis Molina, [place], [facility]). Today she states she is feeling betterdrinking [...] been diagnosed with Celiac Disease via [facility], gastroenterology and is starting a Gluten Free [...] obeseAsthma- Pt was seen in [facility] on 04.16.23 for URI- she states [...] the referral to Plastics at for Hidradentitis [id number] today- to complete 6 week series, now will do monthlyShe has also requested for me to complete her DM foot form from [facility] for DM shoes. She had DM foot exam at [facility] as well as trimming of nails. Records reviewed, diabetic footwear form is to show she has a DM management.Forms will be completed and faxed to [facility].She was found to have [...] will be starting sessions with Mary at [facility] on Tuesday, and may then be referred [...] 3 years agowould like ortho referral to [facility] also reports having numbness and tingling in both handsher 3rd digit on rt hand often will lock and be painful. She reports her sunshine thumbs have had triggers before.SHe also reports dropping things without much controlFeet-Pt request to have a referral to podiatry for care of her feet/nails.She would like to go [place] she has had some fungal infections in past, [facility]- A1c 5.9, on metformin 500 mg bidToday she has some wheezing, o2 94% on room airShe is followed by pulmonologyon 2.17. her wbc was elevatedShe reports cough and congestion has been on going since then, without improvementShe states her throat is a little irritated as well todayProductive cough- white sputumShe reports compliance with her inhalersPt reports she is still having chronic constipationTakes fiber supplement 1 tab bidHas appt w/ GI on 02/01/22Due for colonoscopy b12 # 1 of 6 Nedia is here to day for b12 # 1 of 6 Establish care Nedia is a 47 yo female here today [...] pocket in her abdomen that was infected- [facility]- Dr. Leobardo Oh. Other hx includes surgeries, [...] 8, coffee, java monster drinksWants referral to [facility] April 29ap May 11, 2022- [...] stop smoking/vaping, there is a free online [place] from smoking course offered through our local health department. You may call [phone] for more information. Related to Nicotine dependence, [...] adult; and Caloric intake should be around 0536-7079 for a female, and 7917-0911 for an adult male. Fiber intake should [...] are recommend to be 13-30 grams each. MyStaffInsight.gov is a good source for meal planning and dietary education. You may also refer to the [place] [employer] website for further low sodium, health heart diet information. Mediter[place]ian diet would be a suitable diet for your current health conditions. Related to Obesity It is recommended to stop smoking/vaping to increase overall health and decrease risk of cardiovascular disease. If you wish to stop smoking/vaping, there is a free online [place] from smoking course offered through our local health department. You may call [phone] for more information. Related to Nicotine dependence, [...] adult; and Caloric intake should be around 8488-8967 for a female, and 4043-5820 for an adult male. Fiber intake should [...] are recommend to be 13-30 grams each. [employer].gov is a good source for meal planning and dietary education. You may also refer to the [place] [employer] website for further low sodium, [...] stop smoking/vaping, there is a free online [place] from smoking course offered through our local health department. You may call [phone] for more information. Related to Nicotine dependence, [...] mellitus w/ diabetic neuropathy CT of abdomen lamonte Lewis keep apptF/u 2 weeks on labs and [...] stop smoking/vaping, there is a free online [place] from smoking course offered through our local health department. You may call [phone] for more information. Related to Nicotine dependence, [...] to improve depression symptomsPt was sent to [facility] after speaking with [facility] upper caser Evon High. Related to Depression Patient currently [...] stop smoking/vaping, there is a free online [place] from smoking course offered through our local health department. You may call [phone] for more information. Related to Nicotine dependence, [...] Vitamin D deficiency Low fat, low cholest dustin diet. [...] stop smoking/vaping, there is a free online [place] from smoking course offered through our local health department. You may call [phone] for more information.Use nicotine patches as instructed.RTC [...] stop smoking/vaping, there is a free online [place] from smoking course offered through our local health department. You may call [phone] for more information. Related to Nicotine dependence, [...] stop smoking/vaping, there is a free online [place] from smoking course offered through our local health department. You may call [phone] for more information. Related to Nicotine dependence, [...] stop smoking/vaping, there is a free online [place] from smoking course offered through our local health department. You may call [phone] for more information.Use nicotine patches as instructed.RTC [...] adult; and Caloric intake should be around 3927-9772 for a female, and 2613-9110 for an adult male. Fiber intake should [...] education. You may also refer to the [place] [employer] website for further low sodium, [...] stop smoking/vaping, there is a free online [place] from smoking course offered through our local health department. You may call [phone] for more information.Use nicotine patches as instructed.RTC [...] has been faxed to Orthopedic office in [place], and form scanned to chart. Related to [...] stop smoking, there is a free online [place] from smoking course offered through our local health department. You may call [phone] for more information. Related to Nicotine dependence, [...] adult; and Caloric intake should be around 3372-3602 for a female, and 4959-4749 for an adult male. Fiber intake should [...] are recommend to be 13-30 grams each. [employer] is a good source for meal planning and dietary education. You may also refer to the [place] [employer] website for further low sodium, [...] stop smoking, there is a free online [place] from smoking course offered through our local health department. You may call [phone] for more information. I have given you [...] adult; and Caloric intake should be around 0561-8482 for a female, and 6458-9369 for an adult male. Fiber intake should [...] education. You may also refer to the [place] [employer] website for further low sodium, [...] stop smoking, there is a free online [place] from smoking course offered through our local health department. You may call [phone] for more information. Related to Nicotine dependence, [...]
--- OUTSIDE RECORDS SUMMARY | 2025-09-20 10:45 | XMS_ITS | Encounter Summary ---
Author Organization [employer] ([place], [place], [place], [place], [place]) Address [address] [place] [address] Care Team Providers Care Master Hearth Technician Name Role Phone Yenny Dhillon GLORIA Primary Care Provider [phone] Reason for Visit * Reason Comments Wound Care Nurse visit for woun d care, wound vac and dressing change Encounter Details Date Type Department Care Team (Late st Contact Info) Description 09/20/2025 10:45 AM EST Clinical Support [facility] [address] [place] [address] Sukhdev Bazan Jr., MD [address] [place] [phone] Non-pressure chronic ulcer of skin of [...] on file 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 PIT HAND Gender Identity Not on file Sexual Orientation Not on file documented as of this encounter Last Filed Vital Signs Vital Sign Reading Time Taken Comments Blood Pressure 126/78 09/20/2025 10:54 AM EST Pulse 102 09/20/2025 10:54 AM EST Temperature 35.8 C (96.4 F) 09/20/2025 10:54 AM EST Respiratory Rate 20 09/20/2025 10:54 AM EST Oxygen Saturation - - Inhaled Oxygen Concentration - - Weight - - Height - - Body Mass Index - - documented in this encounter Progress Notes * Adeola Jeffries - 09/20/2025 10:45 AM EST Patient seen today for non provider visit. Dressing removed as follows: Wound vac and drape, ekins, black foam, white foam Dressing applied per order as [...] defined types were placed in this encounter. HAND * Adeola Jeffries - 09/20/2025 10:45 AM EST Images from the original note were not included. Attached media from the original note were not included. 09/20/25 1105 Wound 08/05/25 Soft Tissue Necrosis Leg upper Anterior;Right;Medial Date First Assessed/Time First Assessed: 08/05/25 1433 Present on Original Admission: Yes Wound Approximate Age at First Assessment (Weeks): 4 weeks Primary Wound Type: Soft Tissue Necrosis Location:Leg upper Wound Location Orientation: Anterio... Wound Image Images linked Site Assessment Granulation Leann-Wound Assessment Scarred Wound Length (cm) 13 cm Wound Width (cm) 34 cm Wound Surface Area (cm^2) 347.15 cm^2 Wound Depth (cm) 1.5 cm Wound Volume (cm^3) 347.146 cm^3 Undermining 2.3 cm Undermining Clock Position of Wound 12 Undermining 2 1.3 cm Margins Well-defined edges Wound Healing % -378 Drainage Description Red;Serosanguineous Drainage Amount Moderate Odor None Wound Bed Granulation (%) 100 % Non-staged Wound Description Full thickness HAND documented in this encounter Plan of Treatment Upcoming Encounters Date Type Department Care Team (Late st Contact Info) Description 09/27/2025 10:45 AM EST Clinical Support [facility] [place] [address] [place] [address] 09/30/2025 1:00 PM EST Clinical Support [address] [address] 10/02/2025 1:00 PM EST Office Visit [address] [address] Sukhdev Bazan Jr., MD [address] [place] [address] 10/07/2025 10:15 AM EST Clinical Support [facility] 1 [place] [address] 10/09/2025 2:20 PM EST Office Visit [facility] [address] [place] [address] Sukhdev Bazan Jr., MD [address] [place] [address] 10/11/2025 10:15 AM EST Clinical Support 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
--- OUTSIDE RECORDS SUMMARY | 2025-09-23 14:15 | XMS_ITS | Encounter Summary ---
Author Organization [employer] ([place], [place], [place], [place], [place]) Address [address] [place] [address] Care Team Providers Care Telegraph Lineman Name Role Phone DhillonYenny whyte GLORIA Primary Care Provider [phone] Reason for Visit * Reason Comments Wound Care Nurse visit for woun d vac and dressing change Encounter Details Date Type Department Care Team (Late st Contact Info) Description 09/23/2025 2:15 PM EST Clinical Support [facility] 1 [place] [address] Sukhdev Bazan Jr., MD [address] [place] [phone] Non-pressure chronic ulcer of skin of [...] Date Franko rded Speak language other than Finnish at home Not on file 12/23/2023 Want help with school or training Not on file 12/23/2023 Substance Use Answer Date Recorded Used prescription meds for non-medical reasons N ot on file 12/23/2023 Used illegal drugs past 12 months Not on file 12/23/2023 Comments Unknown Sex and Gender Information Value Date Recorded Sex Assigned at Not on file 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 GEOTECHNICAL INTERN Gender Identity Not on file Sexual Orientation Not on file documented as of this encounter Last Filed Vital Signs Vital Sign Reading Time Taken Comments Blood Pressure 129/81 09/23/2025 2:41 PM EST Pulse - - Temperature 36.6 C (97.8 F) 09/23/2025 2:41 PM EST Respiratory Rate 18 09/23/2025 2:41 PM EST Oxygen Saturation - - Inhaled Oxygen Concentration - - Weight - - Height - - Body Mass Index - - documented in this encounter Progress Notes * Adeola Jeffries - 09/23/2025 2:15 PM EST Images from the original note were not included. Attached media from the original note were not included. 09/23/25 1453 Wound 08/05/25 Soft Tissue Necrosis Leg upper Anterior;Right;Medial Date First Assessed/Time First Assessed: 08/05/25 1433 Present on Original Admission: Yes Wound Approximate Age at First Assessment (Weeks): 4 weeks Primary Wound Type: Soft Tissue Necrosis Location:Leg upper Wound Location Orientation: Anterio... Wound Image Images linked Site Assessment Granulation Leann-Wound Assessment Scarred Wound Length (cm) 11.5 cm Wound Width (cm) 33 cm Wound Surface Area (cm^2) 298.06 cm^2 Wound Depth (cm) 1 cm Wound Volume (cm^3) 198.706 cm^3 Undermining 2 cm Undermining Clock Position of Wound 12 Undermining Clock Position End of Wound 1 Undermining 2 1.3 cm Undermining Clock Position of Wound 2 2 Undermining Clock Position End of Wound 2 3 Margins Well-defined edges Wound Healing % -174 Drainage Description Red;Serosanguineous Drainage Amount Moderate Odor Mild Wound Bed Granulation (%) 100 % Non-staged Wound Description Full thickness ECHNICAL INTERN * Adeola Jeffries - 09/23/2025 2:15 PM EST Patient seen today for non provider visit. Dressing removed as follows: Wound vac and drape, black foam, white foam Dressing applied per [...] defined types were placed in this encounter. ECHNICAL INTERN documented in this encounter Plan of Treatment Upcoming Encounters Date Type Department Care Team (Late st Contact Info) Description 09/27/2025 10:45 AM EST Clinical Support [facility] [place] 1 [place] [address] 09/30/2025 1:00 PM EST Clinical Support [facility] [place] 1 [place] [address] 10/02/2025 1:00 PM EST Office Visit [facility] 1 [place] [address] Sukhdev Bazan Jr., MD [address] [place] [address] 10/07/2025 10:15 AM EST Clinical Support [facility] [place] 1 [place] [address] 10/09/2025 2:20 PM EST Office Visit [facility] [place] 1 [place] [address] Sukhdev Bazan Jr., MD [address] [place] [address] 10/11/2025 10:15 AM EST Clinical Support [facility] [place] 1 [place] [address] documented as of this encounter Visit Diagnoses Diagnosis 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
--- OUTSIDE RECORDS SUMMARY | 2025-09-25 13:50 | XMS_ITS | Encounter Summary ---
Author Organization [employer] ([place], [place], [place], [place], [place]) Address [address] [place] [address] Care Team Providers Care Floorworker Lasting Name Role Phone DhillonYenny whyte GLORIA Primary Care Provider [phone] Reason for Visit * Reason Comments Wound Care Encounter Details Date Type Department Care Team (Late st Contact Info) Description 09/25/2025 1:50 PM EST Office Visit [facility] 1 [place] [address] Sukhdev Bazan Jr., MD [address] [place] [phone] Non-pressure chronic ulcer of skin of [...] Date Franko rded Speak language other than Namibian at home Not on file 12/23/2023 Want help with school or training Not on file 12/23/2023 Substance Use Answer Date Recorded Used prescription meds for non-medical reasons N ot on file 12/23/2023 Used illegal drugs past 12 months Not on file 12/23/2023 Comments Unknown Sex and Gender Information Value Date Recorded Sex Assigned at Not on file 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 SURVEY TECHNOLOGIST Gender Identity Not on file Sexual Orientation Not on file documented as of this encounter Last Filed Vital Signs Vital Sign Reading Time Taken Comments Blood Pressure 118/81 09/25/2025 2:03 PM EST Pulse 131 09/25/2025 2:03 PM EST Temperature 36.4 C (97.5 F) 09/25/2025 2:03 PM EST Respiratory Rate - - Oxygen Saturation - - Inhaled Oxygen Concentration - - Weight - - Height - - Body Mass Index - - documented in this encounter Patient Instructions * Patient Instructions* Efren Segovia RN - 09/25/2025 1:50 PM EST wound care at home: Leave your dressings in place Keep clean and dry until next visit signs and symptoms of infection to include: Increased redness, warmth or drainage with odor, or fever. call wound center for any concerns Call 911 or go to the ER with an emergency EY TECHNOLOGIST documented in this encounter Progress Notes * Efren Segovia RN - 09/25/2025 1:50 PM EST Images from the original note were not included. Attached media from the original note were not included. 09/25/25 1419 Wound 08/05/25 Soft Tissue Necrosis Leg upper Anterior;Right;Medial Date First Assessed/Time First Assessed: 08/05/25 1433 Present on Original Admission: Yes Wound Approximate Age at First Assessment (Weeks): 4 weeks Primary Wound Type: Soft Tissue Necrosis Location:Leg upper Wound Location Orientation: Anterio... Wound Image Images linked Site Assessment Granulation;Sloughing Leann-Wound Assessment Scarred Wound Length (cm) 13 cm Wound Width (cm) 33 cm Wound Surface Area (cm^2) 336.94 cm^2 Wound Depth (cm) 1.2 cm Wound Volume (cm^3) 269.548 cm^3 Undermining 2 cm Undermining Clock Position of Wound 12 Undermining Clock Position End of Wound 1 Undermining 2 1.1 cm Undermining Clock Position of Wound 2 2 Undermining Clock Position End of Wound 2 3 Margins Well-defined edges Wound Healing % -271 Drainage Description Serosanguineous;Dasilva Drainage Amount Moderate Odor None Wound Bed Granulation (%) 95 % Wound Bed Slough (%) 5 % Non-staged Wound Description Full thickness EY TECHNOLOGIST * Efren Segovia RN - 09/25/2025 1:50 PM EST Pt here for a follow-up wound care provider visit. Removed pt's previously ordered dressings. Removed: 2 black foam, 2 white foam Applied: 3 black foam, 2 white foam Orders below followed for wound care today in clinic: Clean wound with 0.9 % normal saline after removal of dressings Apply 4 % or 5% topical lidocaine as needed for pain in clinic only Wound site- Right Groin Cleanse with Vashe, Apply betadine to granulation tissue Apply Skin protectant, Skin tac, Duoderm and Eakins ring as needed, and Vac drape to Leann-wound White foam to undermining of wound, Black foam over entire wound, vac drape Set wound vac at 175mmHg continous Change dressing 3 times weekly in clinic Follow up provider visit in 1 week Non-provider visits for wound care Clinic to follow orders above for any non-provider visits Pt tolerated wound care well. Policy procedures followed for wound care performed in clinic. Instructed pt on wound care. All wound care instructions along with wrap-up education printed and handed to patient at end of visit. EY TECHNOLOGIST * Sukhdev Bazan Jr., MD - 09/25/2025 1:50 PM ESTAssociated Order(s): Debridement Subjective 09/25/25 - CJA -patient returns to the wound care center today for management of the wound of her right groin and thigh. Today the wound seems to be improved. Debridement was medically necessary at the wound site today due to nonviable tissue present on the surface of the wound bed. Wound without any surrounding erythema, induration nor periwound maceration. Undermining is pretty much resolved. At this time we will continue the VAC for another week and likely hold it next week given holiday andinability to change it. Patient states she is going through 2 canisters about every 3 to 2-1/2 days. Will maybe try some Vashe moist to dry dressing to the wound. This will be next week. Will continue with VAC at the current regimen in an effort to get this undermining to completely resolve. 09/18/25 -patient returns to the wound care center [...] Will continue with current treatm ent. 09/11/25 -patient returns to the wound care center [...] with Betadine prior to. Patientfell to pickle sorter her Diflucan prescription. She has completed her [...] going through 4 canisters a day. 08/05/25 CJA -this is a 50-year-old female with a past medical history of diabetes type II, hidradenitis suppurativa, epilepsy, depression, anxiety, asthma, celiac disease who is also a current smoker. Apparently patient had necrotizing fasciitis and was discharged from the [facility] on July 19, 2025 in regards [...] was discharged with a wound VAC to [facility] and recently got out of [facility]. She had a ER visit with [...] weakness. Objective Last Recorded Vitals Blood pressure 118/81, pulse 131, temperature 97.5 ??F (36.4 ??C), temperature source Tympanic. Physical Exam Constitutional: Appearance: Normal appearance. Musculoskeletal: [...] No results found for this visit on 09/25/25 (from the past 24 hours). No image [...] Diabetes mellitus with skin ulcer (HCC) DOS: 09/25/2025 Patient ID: Ashley Brown is a 50 y.o. female. Debridement Wound 08/05/25 Soft Tissue Necrosis Leg upper Anterior;Right;Medial Performed by: Sukhdev Bazan Jr., MD Authorized by: Sukhdev Bazan Jr., MD Consent Consent obtained? written Consent given by: patient Risks discussed? procedural risks discussed Immediately prior to the procedure a time out was called and the performing provider verified the correct patient, procedure, equipment, integrated logistics support manager, and site/side marked as required. Debridement Details Performed by: physician Debridement type: surgical Level of debridement: subcutaneous tissue Pain control: lidocaine 2% Pain control administration type: topical Pre-debridement measurements Length (cm): 13 Width (cm): 33 Depth (cm): 1.2 Surface Area (cm^2): 336.94 Post-debridement measurements Length (cm): 13 Width (cm): 33 Depth (cm): 1.3 Percent debrided: 75% Surface Area (cm^2): 336.94 Area Debrided (cm^2): 252.71 Volume (cm^3): 292.01 Tissue and other material debrided: adipose, dermis, epidermis and subcutaneous tissue Devitalized tissue debrided: biofilm and slough Instrument(s) utilized: curette Bleeding: small Hemostasis obtained with: pressure Procedural pain (0-10): 2 Post-procedural pain: 1 Response to treatment: procedure was tolerated well EY TECHNOLOGIST documented in this encounter Plan of Treatment Upcoming Encounters Date Type Department Care Team (Late st Contact Info) Description 09/27/2025 10:45 AM EST Clinical Support [facility] [address] [address] 09/30/2025 1:00 PM EST Clinical Support [address] [address] 10/02/2025 1:00 PM EST Office Visit [address] [address] Sukhdev Bazan Jr., MD [address] [place] [address] 10/07/2025 10:15 AM EST Clinical Support [address] [address] 10/09/2025 2:20 PM EST Office Visit [address] [address] Sukhdev Bazan Jr., MD [address] [place] [address] 10/11/2025 10:15 AM EST Clinical Support [facility] [address] [address] documented as of this encounter Procedures Procedure Name Priority Date/Time Associated Diagnosis Comments IL DEBRIDEMENT SUBCUTANEOUS TISSUE EA ADDL 20 SQ CM Routine 09/25/2025 1:50 PM EST 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) Localized tissue (HCC) Other specified local infections of the skin and subcutaneous tissue IL DEBRIDEMENT SUBCUTANEOUS TISSUE EA ADDL 20 SQ CM Routine 09/25/2025 1:50 PM EST 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) Localized tissue (HCC) Other specified local infections of the skin and subcutaneous tissue IL DEBRIDEMENT SUBCUTANEOUS TISSUE EA ADDL 20 SQ CM Routine 09/25/2025 1:50 PM EST 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) Localized tissue (HCC) Other specified local infections of the skin and subcutaneous tissue IL DEBRIDEMENT SUBCUTANEOUS TISSUE EA ADDL 20 SQ CM Routine 09/25/2025 1:50 PM EST 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) Localized tissue (HCC) Other specified local infections of the skin and subcutaneous tissue IL DEBRIDEMENT SUBCUTANEOUS TISSUE EA ADDL 20 SQ CM Routine 09/25/2025 1:50 PM EST 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) Localized tissue (HCC) Other specified local infections of the skin and subcutaneous tissue IL DEBRIDEMENT SUBCUTANEOUS TISSUE EA ADDL 20 SQ CM Routine 09/25/2025 1:50 PM EST 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) Localized tissue (HCC) Other specified local infections of the skin and subcutaneous tissue IL DEBRIDEMENT SUBCUTANEOUS TISSUE EA ADDL 20 SQ CM Routine 09/25/2025 1:50 PM EST 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) Localized tissue (HCC) Other specified local infections of the skin and subcutaneous tissue IL DEBRIDEMENT SUBCUTANEOUS TISSUE EA ADDL 20 SQ CM Routine 09/25/2025 1:50 PM EST 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) Localized tissue (HCC) Other specified local infections of the skin and subcutaneous tissue IL DEBRIDEMENT SUBCUTANEOUS TISSUE EA ADDL 20 SQ CM Routine 09/25/2025 1:50 PM EST 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) Localized tissue (HCC) Other specified local infections of the skin and subcutaneous tissue IL DEBRIDEMENT SUBCUTANEOUS TISSUE EA ADDL 20 SQ CM Routine 09/25/2025 1:50 PM EST 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) Localized tissue (HCC) Other specified local infections of the skin and subcutaneous tissue IL DEBRIDEMENT SUBCUTANEOUS TISSUE EA ADDL 20 SQ CM Routine 09/25/2025 1:50 PM EST 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) Localized tissue (HCC) Other specified local infections of the skin and subcutaneous tissue IL DEBRIDEMENT SUBCUTANEOUS TISSUE EA ADDL 20 SQ CM Routine 09/25/2025 1:50 PM EST 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) Localized tissue (HCC) Other specified local infections of the skin and subcutaneous tissue IL DEBRIDEMENT SUBCUTANEOUS TISSUE 1ST 20 SQ CM/< Routine 09/25/2025 1:50 PM EST 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) Localized tissue (HCC) Other specified local infections of the skin and subcutaneous tissue documented in this encounter Results * IL DEBRIDEMENT SUBCUTANEOUS TISSUE 1ST 20 SQ CM/<, IL DEBRIDEMENT SUBCUTANEOUS TISSUE EA ADDL 20SQ CM, IL DEBRIDEMENT SUBCUTANEOUS TISSUE EA ADDL 20 SQ CM, IL DEBRIDEMENT SUBCUTANEOUS TISSUE EA ADDL 20 SQ CM, IL DEBRIDEMENT SUBCUTANEOUS TISSUE EA ADDL 20 SQ CM, IL DEBRIDEMENT SUBCUTANEOUS TISSUE EA ADDL 20 SQ CM, IL DEBRIDEMENT SUBCUTANEOUS TISSUE EA ADDL 20 SQ CM, IL DEBRIDEMENT SUBCUTANEOUSTISSUE EA ADDL 20 SQ CM, IL DEBRIDEMENT SUBCUTANEOUS TISSUE EA ADDL 20 SQ CM, IL DEBRIDEMENT SUBCUTANEOUS TISSUE EA ADDL 20 SQ CM, IL DEBRIDEMENT SUBCUTANEOUS TISSUE EA ADDL 20 SQ CM, IL DEBRIDEMENT S UBCUTANEOUS TISSUE EA ADDL 20 SQ CM, IL DEBRIDEMENT SUBCUTANEOUS TISSUE EA ADDL 20 SQ CM (09/25/2025 1:50 PM EST) Sukhdev Cardoza Jr., MD - 09/25/2025 1:50 PM EST Sukhdev Bazan Jr., MD 09/25/2025 3:52 PM Debridement Wound 08/05/25 Soft Tissue Necrosis Leg upper Anterior;Right;Medial Performed by: Sukhdev Bazan Jr., MD Authorized by: Sukhdev Bazan Jr., MD Consent Consent obtained? written Consent given by: patient Risks discussed? procedural risks discussed Immediately prior to the procedure a time out was called and the performing provider verified the correct patient, procedure, equipment, integrated logistics support manager, and site/side marked as required. Debridement Details Performed by: physician Debridement type: surgical Level of debridement: subcutaneous tissue Pain control: lidocaine 2% Pain control administration type: topical Pre-debridement measurements Length (cm): 13 Width (cm): 33 Depth (cm): 1.2 Surface Area (cm^2): 336.94 Post-debridement measurements Length (cm): 13 Width (cm): 33 Depth (cm): 1.3 Percent debrided: 75% Surface Area (cm^2): 336.94 Area Debrided (cm^2): 252.71 Volume (cm^3): 292.01 Tissue and other material debrided: adipose, dermis, [...] uncontrolled documented in this encounter Care Teams Floorworker Lasting Relationship Specialty Start Date End Date Yenny Dhillon APRN [address] [place] [address] PCP - General Nurse Practitioner 03/13/24 documented as of this encounter
[2025-09-26 20:37] VITALS: BP 137/90; PULSE 112; RESP 20; TEMP 36.9; O2SAT 100; BMI 49.4
--- OUTSIDE RECORDS SUMMARY | 2025-09-26 20:54 | XMS_ITS | Encounter Summary ---
Author Organization Healthcare Address [address] [place] [address] Care Team Providers Care Photographic Hand Developer Name Role Phone Yenny Dhillon APRN Primary Care Provider [phone] Reason for Referral * Consultation (Routine) - Authorized Specialty Diagnoses / Procedures Referred By Bharati wiggins Referred To Contact Wound Care Diagnoses Necrotizing fasciitis (CMS/HCC) Lilliana Morfin APRN [address] [place] [address] Phone: tel: fax: Referral ID Status Reason Start Date Expiration Date Visits Requested Visits Authorized [id number] Authorized Specialty Services Required 08/12/2025 02/11/2027 1 1 Encounter Details Date Type Department Care Team (Late st Contact Info) Description 08/12/2025 Orders Only [facility] General Surgery [address], [address] [place] [id number] Ninfa Tam, WINDOWS CONSULTANT & ACUTE CARE SURG [facility] ACUTE T1 None Necrotizing fasciitis (CMS/HCC) (Primary Dx) Social History [...] in the past 12 m [facility], were you homeless or living in a care home (including now)? No 07/15/2025 [facility] [...] Description 09/30/2025 10:20 AM EST Office Visit [place] [facility] [address] [place] [address] Marj Matamoros, VP CORPORATE DEVELOPMENT [address] [place] [address] 11/19/2025 8:20 AM EST Office Visit Medical Office Building Urology [address] [facility], [address] [place] [address] Marj Matamoros, VP CORPORATE DEVELOPMENT [address] [facility] [address] [place] [address] Scheduled Referrals Name Type Priority [...] documented as of this encounter Care Teams Photographic Hand Developer Relationship Specialty Start Date End Date Yenny Dhillon APRN [address] [place] [address] PCP - General 07/22/23 documented as of this encounter
--- OUTSIDE RECORDS SUMMARY | 2025-09-26 20:54 | XMS_ITS | Encounter Summary ---
Author Organization [employer] ([place], [place], [place], [place], [place]) Address [address] [place] [address] Care Team Providers Care Chargeback Analyst Name Role Phone Yenny Dhillon APRN Primary Care Provider [phone] Encounter Details Date Type Department Care Team (Latest Contact Info) Description 09/18/2025 Travel Social History Tobacco Use Types Packs/Day [...] Date Franko rded Speak language other than Citizen Of [place] at home Not on file 12/23/2023 Want help with school or training Not on file 12/23/2023 Substance Use Answer Date Recorded Used prescription meds for non-medical reasons N ot on file 12/23/2023 Used illegal drugs past 12 months Not on file 12/23/2023 Comments Unknown Sex and Gender Information Value Date Recorded Sex Assigned at Not on file 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 SITE ADMINISTRATOR Gender Identity Not on file Sexual Orientation Not on file documented as of this encounter Plan of Treatment Upcoming Encounters Date Type Department Care Team (Late st Contact Info) Description 09/27/2025 10:45 AM EST Clinical Support [facility] 1 [place] [address] 09/30/2025 1:00 PM EST Clinical Support [facility] 1 [place] [address] 10/02/2025 1:00 PM EST Office Visit [address] [phone] Sukhdev Bazan Jr., MD [address] [place] [address] 10/07/2025 10:15 AM EST Clinical Support [address] [address] 10/09/2025 2:20 PM EST Office Visit [address] [phone] Sukhdev Bazan Jr., MD [address] [place] [address] 10/11/2025 10:15 AM EST Clinical Support [facility] 1 [place] [address] documented as of this encounter Visit Diagnoses Not on filedocumented in this encounter Care Teams Chargeback Analyst Relationship Specialty Start Date End Date Yenny Dhillon, GLORIA [address] [place] [address] PCP - General Nurse Practitioner 03/13/24 documented as of this encounter
--- OUTSIDE RECORDS SUMMARY | 2025-09-26 20:54 | XMS_ITS | Encounter Summary ---
Author Organization [employer] ([place], [place], [place], [place], [place]) Address [address] [place] [address] Care Team Providers Care Molding Technician Name Role Phone Yenny Dhillon APRN Primary Care Provider [phone] Encounter Details Date Type Department Care Team (Latest Contact Info) Description 09/13/2025 Travel Social History Tobacco Use Types Packs/Day [...] Date Franko rded Speak language other than Iraqi at home Not on file 12/23/2023 Want help with school or training Not on file 12/23/2023 Substance Use Answer Date Recorded Used prescription meds for non-medical reasons N ot on file 12/23/2023 Used illegal drugs past 12 months Not on file 12/23/2023 Comments Unknown Sex and Gender Information Value Date Recorded Sex Assigned at Not on file 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 INSPECTOR AND TESTER Gender Identity Not on file Sexual Orientation Not on file documented as of this encounter Plan of Treatment Upcoming Encounters Date Type Department Care Team (Late st Contact Info) Description 09/27/2025 10:45 AM EST Clinical Support [facility] [address] [place] [address] 09/30/2025 1:00 PM EST Clinical Support [facility] [address] [place] [address] 10/02/2025 1:00 PM EST Office Visit [address] [phone] Sukhdev Bazan Jr., MD [address] [place] [address] 10/07/2025 10:15 AM EST Clinical Support [address] [address] 10/09/2025 2:20 PM EST Office Visit [address] [phone] Sukhdev Bazan Jr., MD [address] [place] [address] 10/11/2025 10:15 AM EST Clinical Support [facility] 1 [place] [address] documented as of this encounter Visit Diagnoses Not on filedocumented in this encounter Care Teams Molding Technician Relationship Specialty Start Date End Date Yenny Dhillon, GLORIA [address] [place] [address] PCP - General Nurse Practitioner 03/13/24 documented as of this encounter
--- OUTSIDE RECORDS SUMMARY | 2025-09-26 20:54 | XMS_ITS | Encounter Summary ---
Author Organization Healthcare Address [address] [place] [address] Care Team Providers Care Caddy/Caddie Supervisor Name Role Phone DhillonYenny Lit CASTRO Primary Care Provider [phone] Reason for Visit * Reason Onset Date Comments HCN Clinical Concern/Question 09/25/2025 Encounter Details Date Type Department Care Team (Late st Contact Info) Description 09/25/2025 [facility]phone [facility] [address], [address] [place] [address] Marj Matamoros APRN [address] [place] [address] HCN Clinical Concern/Question Social History [...] were you homeless or living in a fdc (including now)? No 07/15/2025 [facility] Utilities Answer Date Recorded [...] * Telephone Encounter - Marilee Sinha - 09/25/2025 10:25 AM EST Patient Phone Message Reason for Call: Pt is calling to see if she can get in sooner than [facility]. States she has a cath and noticed the urineis darker in color. Please advise Best contact number and optimal time of day to reach caller: [phone] Note: Please do not reply to this message. Follow-up communication and further actions as a result of this message need to be communicated with the patient directly, if the patient is not active onMyChart. If the patient is active on MyChart, they will receive notification of the communication/outcome via MyChart. documented in this encounter Plan of Treatment Upcoming Encounters Date Type Department Care Team ([facility] st Contact Info) Description 09/30/2025 10:20 AM EST Office Visit [facility] Urology [address] [place] [address] Marj Matamoros RETIREMENT MANAGER [address] [address] 11/19/2025 8:20 AM EST Office Visit Medical Office Building Urology [address] [facility], [address] [place] [address] Marj Matamoros RETIREMENT MANAGER [address] [facility] [address] [place] [address] documented as of this encounter [...] documented as of this encounter Care Teams Caddy/Caddie Supervisor Relationship Specialty Start Date End Date Yenny Dhillon APRN [address] [id number] PCP - General 07/22/23 documented as of this encounter
--- OUTSIDE RECORDS SUMMARY | 2025-09-26 20:54 | XMS_ITS | Encounter Summary ---
Author Organization [facility] ([place], [place], [place], [place], [place]) Address [address] [place] [address] Care Team Providers Care Boat Puller Name Role Phone Yenny Dhillon APRN Primary Care Provider [phone] Encounter Details Date Type Department Care Team (Latest Contact Info) Description 09/25/2025 Travel Social History Tobacco Use Types Packs/Day [...] Date Franko rded Speak language other than [place] at home Not on file 12/23/2023 Want help with school or training Not on file 12/23/2023 Substance Use Answer Date Recorded Used prescription meds for non-medical reasons N ot on file 12/23/2023 Used illegal drugs past 12 months Not on file 12/23/2023 Comments Unknown Sex and Gender Information Value Date Recorded Sex Assigned at Not on file 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 Gender Identity Not on file Sexual Orientation Not on file documented as of this encounter Plan of Treatment Upcoming Encounters Date Type Department Care Team (Late st Contact Info) Description 09/27/2025 10:45 AM EST Clinical Support [facility] 1 [place] [address] 09/30/2025 1:00 PM EST Clinical Support [facility] 1 [place] [address] 10/02/2025 1:00 PM EST Office Visit [address] [phone] Sukhdev Bazan Jr., MD [address] [place] [address] 10/07/2025 10:15 AM EST Clinical Support [address] [address] 10/09/2025 2:20 PM EST Office Visit [address] [phone] Sukhdev Bazan Jr., MD [address] [place] [address] 10/11/2025 10:15 AM EST Clinical Support [facility] 1 [place] [address] documented as of this encounter Visit Diagnoses Not on filedocumented in this encounter Care Teams Boat Puller Relationship Specialty Start Date End Date Yenny Dhillon, GLORIA [address] [place] [address] PCP - General Nurse Practitioner 03/13/24 documented as of this encounter
--- OUTSIDE RECORDS SUMMARY | 2025-09-26 20:54 | XMS_ITS | Encounter Summary ---
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 Gender Identity Not on file Sexual Orientation Not on file documented as of this encounter Plan of Treatment Upcoming Encounters Date Type Department Care Team (Late st Contact Info) Description 09/27/2025 10:45 AM EST Clinical Support [facility] 1 [place] [address] 09/30/2025 1:00 PM EST Clinical Support [facility] 1 [place] [address] 10/02/2025 1:00 PM EST Office Visit [address] [phone] Sukhdev Bazan Jr., MD [address] [place] [address] 10/07/2025 10:15 AM EST Clinical Support [address] [address] 10/09/2025 2:20 PM EST Office Visit [address] [phone] Sukhdev Bazan Jr., MD [address] [place] [address] 10/11/2025 10:15 AM EST Clinical Support [facility] 1 [place] [address] documented as of this encounter Visit Diagnoses Not on filedocumented in this encounter Care Teams Software Deployment Engineer Relationship Specialty Start Date End Date Yenny Dhillon, GLORIA [address] [place] [address] PCP - General Nurse Practitioner 03/13/24 documented as of this encounter
--- OUTSIDE RECORDS SUMMARY | 2025-09-26 20:54 | XMS_ITS | Encounter Summary ---
Author Organization Healthcare Address [address] [place] [address] Care Team Providers Care Quality Systems Specialist Name Role Phone DhillonYenny Lit CASTRO Primary Care Provider [phone] Reason for Visit * Reason Onset Date Comments HCN Clinical Concern/Question 08/02/2025 Encounter Details Date Type Department Care Team (Late st Contact Info) Description 08/02/2025 Telephone [place] [facility] [address] [place] [address] Marj Matamoros APRN [address] [place] [address] HCN Clinical Concern/Question Social History [...] any time in the past 12 m [facility], were you homeless or living in a long-term (including now)? No 07/15/2025 [facility] Utilities Answer Date Recorded In [...] Massey RN documented as of this encounter Miscellaneous Notes * Telephone Encounter - Erica Romero RN - 08/09/2025 3:49 PM EDT Ashley Brown contacted the clinic back. I told her that Marj Matamoros sent oxybutynin to [facility] in [place]. She should go to the ER if there is no urine draining or she has any signs of infection. Patient plans to monitor urine output and to picker feeder the oxybutynin. She verbalized understanding to go to emergency department if catheter isn't draining or she develops signs of infection. * Telephone Encounter - Erica Romero RN - 08/09/2025 3:21 PM EDT I attempted to contact Ashley Brown by phone at [phone] and [phone]. There was no answer. I left a message for the patient to call the Urology Clinic at [phone]. * Telephone Encounter - Erica Romero RN - 08/09/2025 2:06 PM EDT I contacted Ashley Brown by phone at [phone]. Patient states that her catheter was placed [...] Pt is calling states she DC from [facility] on Tue. Was advised to call and make LUIS A follow up with Richelle Matamoros. Please advise Best contact number and optimal time of day to reach caller: [phone] Note: Please do not reply to this message. Follow-up communication and further actions as a result of this message need to be communicated with the patient directly, if the patient is not active onMyChart. If the patient is active on MyChart, they will receive notification of the communication/outcome via [employer]. documented in this encounter Plan of Treatment Upcoming Encounters Date Type Department Care Team ([facility] Contact Info) Description 09/30/2025 10:20 AM EST Office Visit [facility] [address] [place] [address] Marj Matamoros RISK LEAD [address] [facility] [address] [place] [phone] 11/19/2025 8:20 AM EST Office Visit Medical Office Building Urology [address] [facility], [address] [place] [address] Marj Matamoros RISK LEAD [address] [facility] [address] [place] [address] documented as of this encounter [...] documented as of this encounter Care Teams Quality Systems Specialist Relationship Specialty Start Date End Date Yenny Dhillon APRN [address] [place] [address] PCP - General 07/22/23 documented as of this encounter
--- OUTSIDE RECORDS SUMMARY | 2025-09-26 20:55 | XMS_ITS | Encounter Summary ---
Author Organization Healthcare Address [address] [place] [address] Care Team Providers Care Outpatient Pharmacy Manager Name Role Phone Yenny Dhillon APRN Primary Care Provider [phone] Encounter Details Date Type Department Care Team [...] time in the past 12 m [facility], were you homeless or living in a group home (including now)? No 07/15/2025 [facility] Utilities Answer Date Recorded In [...] Upcoming Encounters Date Type Department Care Team ([facility] st Contact Info) Description 09/30/2025 10:20 AM EST Office Visit [place] [facility] [address] [place] [address] Marj Matamoros, GENERAL SURGEON [address] [place] [address] 11/19/2025 8:20 AM EST Office Visit Medical Office Building Urology [address] [facility], [address] [place] [address] Marj Matamoros, GENERAL SURGEON [address] [place] [address] documented as of this encounter Visit Diagnoses [...] documented as of this encounter Care Teams Outpatient Pharmacy Manager Relationship Specialty Start Date End Date Yenny Dhillon APRN [address] [place] [address] PCP - General 07/22/23 documented as of this encounter
--- OUTSIDE RECORDS SUMMARY | 2025-09-26 20:55 | XMS_ITS | Encounter Summary ---
Author Organization Healthcare Address [address] [place] [address] Care Team Providers Care Acid Blower Name Role Phone Yenny Dhillon APRN Primary Care Provider [phone] Encounter Details Date Type Department Care Team [...] any time in the past 12 m [facility], were you homeless or living in a retirement (including now)? No 07/15/2025 [facility] Utilities Answer Date Recorded In the past [...] Upcoming Encounters Date Type Department Care Team ([facility] st Contact Info) Description 09/30/2025 10:20 AM EST Office Visit [place] [facility] [address] [place] [address] Marj Matamoros, FABRIC WORKER [address] [place] [address] 11/19/2025 8:20 AM EST Office Visit Medical Office Building Urology [address] [facility], [address] [place] [address] Marj Matamoros, FABRIC WORKER [address] [place] [address] documented as of this encounter Visit Diagnoses [...] documented as of this encounter Care Teams Acid Blower Relationship Specialty Start Date End Date Yenny Dhillon APRN [address] [place] [address] PCP - General 07/22/23 documented as of this encounter
--- OUTSIDE RECORDS SUMMARY | 2025-09-26 20:55 | XMS_ITS | Clinical Summary ---
Author Organization Healthcare Address [address] [place] [address] Care Team Providers Care Media Producer Name Role Phone AlejoYenny Lit CASTRO Primary Care Provider [phone] Allergies Active Allergy Reactions Criticality Noted Date [...] Assessment & Plan (07/19/2025 7:08 AM EDT): [facility] Assessment & Plan (07/18/2025 7:05 AM EDT): [facility] Assessment & Plan (07/17/2025 10:21 AM EDT): [facility] Assessment & Plan (07/16/2025 6:52 AM EDT): [facility] Assessment & Plan (07/15/2025 7:15 AM EDT): [facility] Assessment & Plan (07/14/2025 7:31 AM EDT): [facility] Assessment & Plan (07/13/2025 12:36 PM EDT): [facility] JSOEP (obstructive sleep apnea) 07/11/2025 Overview (07/11/2025): -CPAP [...] Encounters Date Type Department Care Team Description 09/25/2025 Telephone [facility] Urology [address] [place] [address] Marj Matamoros, FABRICATOR [employer] HCN Clinical Concern/Question 08/20/2025 10:30 AM EDT Office Visit [facility] General Surgery [address], [address] [place] [address] Lilliana Morfin APRN Hidradenitis suppurativa (Primary Dx); Soft tissue infection 08/20/2025 Travel 08/19/2025 Travel 08/12/2025 Orders Only [facility] General Surgery [address], [address] [place] [address] Ninfa Tam, RN Necrotizing fasciitis (CMS/HCC) (Primary Dx) 08/09/2025 Orders Only [facility] Urology [address], [address] [place] [address] Marj Matamoros APRN Bladder spasms (Primary Dx) 08/03/2025 5:34 PM EDT - 08/03/2025 9:28 PM EDT Emergency [facility] Emergency Department [address] [place] [address] Luis Cotto MD Necrotizing fasciitis (CMS/HCC) (Primary Dx); Encounter for management of wound VAC Discharge Disposition: Home or Self Care 08/03/2025 Travel 08/02/2025 Telephone [facility] Urology [address], [address] [place] [address] Marj Matamoros APRN HCN Clinical Concern/Question 07/22/2025 Travel 07/17/2025 Travel 07/16/2025 Travel 07/14/2025 2:41 PM EDT Anesthesia Event [facility] OPERATING ROOM [address] [place] [address] Azul Eisenberg, KING, Lynnette Montoya, 07/14/2025 2:05 PM EDT - 07/14/2025 4:05 PM EDT Surgery [facility] [address] [place] [address] Anne Franco MD Debridement, partial closure of right groin wound 07/12/2025 Travel 07/11/2025 2:12 PM EDT Anesthesia Event [facility]ATING [facility] [address] [place] [address] Eddie Fulton MD Gambrel, Shira G, MD 07/11/2025 1:50 PM EDT - 07/11/2025 3:20 PM EDT Surgery [facility] [address] [place] [address] Dorcas Hennessy MD APPLICATION OR REPLACEMENT, WOUND VAC 07/10/2025 3:16 PM EDT Anesthesia Event [facility] [address] [place] [address] Jason Douglas DO Gibson, Corinne E, MD 07/10/2025 11:35 AM EDT - 07/10/2025 1:45 PM EDT Surgery [facility] [address] [place] [address] Dorcas Hennessy MD DEBRIDEMENT, WOUND groin 07/10/2025 Travel 07/09/2025 Travel 07/08/2025 8:09 PM EDT Anesthesia Event [facility] [address] [place] [address] Yadi Goel MD Johnson, Chandler B, MD 07/08/2025 8:00 PM EDT - 07/08/2025 9:30 PM EDT Surgery [facility] [address] [place] [address] Brittany Crawford MD IRRIGATION AND DEBRIDEMENT, WOUND [[id number] (CPT )] 07/08/2025 5:58 PM EDT - 07/19/2025 12:56 PM EDT Hospital Encounter [facility] Inpatient [address] [place] [address] Kyle Mckinney MD Rodriguez, Rachel D, MD [...] were you homeless or living in a [place] health care facility (including now)? No 07/15/2025 [facility] Utilities Answer Date Recorded In [...] Office Visit [facility] [address], [address] [place] [phone] Marj Matamoros, FABRICATOR [employer] [address] [place] [address] 11/19/2025 8:20 AM EST Office Visit Medical [facility] Building Urology [address] [facility], [address] [place] [address] Marj Matamoros, F[employer]RICATOR [employer] [address] [facility] [address] [place] [address] Health Maintenance Due Date Last [...] Screening 2021 [facility]-Depression Screening 02/28/2025 02/29/2024, 08/08 [id number] Vaccine (1 - season) 2025 [facility]-Influenza Vaccine [...] Morbid (severe) obesity due to excess calories ([facility]) Septic shock ([facility]) Type 2 diabetes mellitus with hyperglycemia, without long-term current use of insulin ([facility]) Respiratory insufficiency POCT GLUCOSE METER [...] 57 AM EDT MAGNESIUM, PLASMA Routine 07/09/2025 4:57 AM EDT BASIC METABOLIC PANEL, [...] result, infection, nerve damage and incomplete drainage [place] protocol: Patient identity confirmed: Verbally with patient [...] of72 resultswithin the time period is included. Pathologist [facility] POCT Glucose 197(H) 74 - 99 mg/dL 07/19/2025 5:32 PM EDT [email or web address] Comment:Accuracy of a glucos e result [...] 07/19/2025 5:32 PM EDT [facility] Chargemaster Specialist ID Laura Baez 025 5:32 PM EDT [facility]ALTH[facility]ARE [facility] Device ID [id number] 07/19/2025 5:32 PM EDT [facility] Specimen Type POC Capillary 07/19/2025 5:32 PM EDT [facility] Blood Capillary blood specimen / Unknown 07/19/2025 12:27 PM EDT 07/19/2025 5:32 PM EDT Anne Franco MD LAB POINT OF CARE TEST DOCKED DEVICE UNSOLICITED RESULTS Final Result [facility] [address] [place] [address] * (ABNORMAL) CBC W/O Differential (07/19/2025 4:28 [...] 4:28 AM EDT 07/19/2025 4:36 AM EDT Anne Franco MD LAB BLOOD ORDERABLES Sarah l Result Performing Organization Address City/[facility]/ZIP Co de Phone Number [facility] [address] [place] [address] * Phosphorus (07/19/2025 4:28 AM EDT) Only [...] ORDERABLES Sarah l Result Performing Organization Address City/[facility]/ZIP Co de Phone Number [facility] [address] [place] [address] * (ABNORMAL) Magnesium (07/19/2025 4:28 AM EDT) [...] [facility] [address] [place] [address] * (ABNORMAL) Basic metabolic panel (07/19/2025 4:28 [...] [facility] [address] [place] [address] * PERIPHERAL IV (SMARTFORM LINK) (07/17/2025 5:14 [...] Detected Not Detected 07/17/2025 12:11 PM EDT [facility] Swab Both anterior [...] [facility] [address] [place] [address] * XR Chest 1 View (07/16/2025 11:25 [...] and Staff Patient location during procedure: OR WASTE COLLECTOR: Azul Eisenberg CRNA, DNP Performed: WASTE COLLECTOR Patient Condition Indications for airway management: anesthesia [...] POCT Glucose 119(A) 74 - 99 mg/dL [email or web address] Test Strip Lot Number \[id number]\ [facility] Test Strip Expiration 09/24/2026 [email or web address] Blood Venous blood specimen / Unknown 07/11/2025 8:45 PM EDT Dorcas Hennessy MD POINT OF CARE TEST ENTER/EDIT OR DERABLES Final Result [facility] [address] [place] [address] * [place] AN ELECTIVE ENDOTRACHEAL AIRWAY, PB ANESTHESIA PLACEHOLDER (07/11/2025 2:23 PM EDT) Narrative Luis Manuel Sharpe CRNA - 07/11/2025 2:23 PM EDT Luis Manuel Sharpe CRNA 07/11/2025 2:37 PM Airway Date/Time: 07/11/2025 2:23 PM Reason: elective Airway not difficult General Information and Staff Patient location during procedure: OR WASTE COLLECTOR: Luis Manuel Sharpe CRNA Performed: WASTE COLLECTOR Patient Condition Indications for airway management: anesthesia [...] BLOOD ORDERABLES Final Result Performing Organization Address City/State/[facility] Co de Phone Number [facility] [address] [place] [address] * XR Abdomen 1 View (07/10/2025 12:03 [...] of the abdomen. COMPARISON: None. FINDINGS: Limited srfyt-se-xprf abdominal radiograph for the purpose of locating tube position. The tip of the nasogastric tube is within the mid stomach. Procedure Note Bernabe Sen MD - 07/10/2025 CLINICAL INDICATION: feeding tube placement TECHNIQUE: Supine radiograph of the abdomen. COMPARISON: None. FINDINGS: Limited ywwvv-aj-dweh abdominal radiograph for the purpose of locatingtube [...] QTC Interval 405 ms MUSE ECG P Holcomb 44 degrees MUSE ECG R Holcomb 17 degrees MUSE ECG T Wave Holcomb 27 degrees MUSE ECG Diagnosis Sinus rhythm [...] [facility] [address] [place] [address] * Multi Drug Resistance Test (07/09/2025 9:46 [...] and its performance characteristics determined by the [facility] Clinical Microbiology Laboratory. Although the media is FDA-approved, it is not FDA-approved for all specimen types submitted. The FDA has determined that such clearance or approval is not necessary. This test is used for surveillance purposes. It should not be regarded as investigational or for research. The [facility]biology Laboratory is certified under the Clinical Laboratory Improvement Amendments of 1988 (CLIA-88) as qualified to perform high complexity clinical laboratory testing. us Brittany Crawford MD LAB MICROBIOLOGY - GENERAL ORDERABLES Final Result [facility] [address] [place] [address] * [place] CRITICAL CARE, E/M 30-74 MINUTES [...] Adults <6.0% Children and Adolescents <7.5% Source: [place] [employer]. Standards of medical care in diabetes,2017. Diabetes Care.2017:40 (suppl 1):S1-S135. us Dorcas Hennessy MD LAB BLOOD ORDERABLES Final Resul t Performing Organization Address City/[facility]/ZIP Co de Phone Number [facility] [address] [place] [address] * APTT (07/08/2025 11:53 PM EDT) aPTT 25 25 - 35 sec LAB COAGULATION METHOD 07/09/2025 12:32 AM EDT [facility] Blood Venous blood specimen / Unknown Venipuncture / Unknown 07/08/2025 11:53 PM EDT 07/08/2025 11:59 PM EDT us Brittany Crawford MD LAB BLOOD ORDERABLES Final Result [facility] [address] [place] [address] * (ABNORMAL) Protime-INR (07/08/2025 11:53 PM EDT) [...] INR 2.5 to 3.5 Prevention of recurrent NH INR 2.5 to 3.5 us Brittany Crawford MD LAB BLOOD ORDERABLES Final Result Performing Organization Address [facility] [place] [address] * Geno auris Surveillance by PCR (07/08/2025 [...] developed and its performance characteristics determined by [facility] as appropriate for clinical purposes. This assay has not been cleared or approved by the FDA, but is performed in a CLIA regulated laboratory that is qualified to perform high-complexity testing. us Brittany Crawford MD LAB MICROBIOLOGY - GENERAL ORDERABLES Final Result Performing Organization Address [facility] [place] [address] * (ABNORMAL) Tissue Culture and Gram Stain (07/08/2025 10:48 PM EDT) Culture Light Growth 07/13/2025 1:13 PM EDT [facility] Culture 1+ Schaalia turicensis (formerly known [...] has been identified using the FDA Approved Next Performanceer CA System The organism value for this [...] GENERAL ORDERABLES Final Result Performing Organization Address City/State/[facility] Co de Phone Number [facility] [address] [place] [address] * Transfuse fresh frozen plasma (07/08/2025 10:35 PM EDT) Only the most recent of2 resultswithin the time period is included. us Richard Betts WASTE COLLECTOR BLOOD TRANSFUSION ORDERAB LES Final Result * Transfuse RBC (07/08/2025 10:29 PM EDT) Only the most recent of2 resultswithin the time period is included. Richard Betts WASTE COLLECTOR BLOOD TRANSFUSION ORDERAB LES Final Result * Surgical Pathology Exam (07/08/2025 10:07 PM EDT) Case Report Surgical Pathology Case: [id number] Authorizing Provider: Brittany Crawford MD Collected: 07/08/2025 3450 Ordering Location: [facility] OPERATING ROOM Received: 07/09/2025 0791 Pathologist: Boaz Fernandez MD Specimens: A) - [...] reveal a pinpoint lumen with dried blood. Car Rental Manager sections are taken and submitted in cassette A1. Cold Time: 8h 56m Abhishek Baptiste MD B. RIGHT LEG Specimen is received fresh labeled right leg. Received are numerous fragments of skin and underlying soft tissue that measure in aggregate 25.0 x 25.0 x 7.5 cm. Scattered areas of skin and soft tissue notable for being green-black, foul-smelling and extensively necrotic. Car Rental Manager sections are taken and submitted in [...] ORDERABLES F inal Result Performing Organization Address City/[facility] Co de Phone Number [facility] [address] [place] [address] * Prepare Fresh Frozen Plasma: 2 Units (07/08/2025 9:24 PM EDT) Product Code C2573J01 [facility] BLOO D BANK Dispense Status Transfused CH BLOOD BANK Blood Expiration Date [id number] BLOOD BANK Unit Number [id number] CH B LOOD BANK Product Blood Type 5100 CH BLOOD BANK Blood Type O+ CH BLOOD BANK Product Code G9329S02 CH BLOO D BANK Dispense Status Transfused BLOOD BANK Blood Expiration Date [id number] BLOOD BANK Unit Number [id number] CH B LOOD BANK Product Blood Type 5100 BLOOD BANK Blood Type O+ CH BLOOD BANK Blood Venous blood specimen / Unknown Richard Betts CRNA BLOOD BANK PRODUCT ORDERA BLES Final Result Performing Organization Address [facility] Co de Phone Number BLOOD BANK [address] * Prepare Leukocyte Reduced RBC: 2 Units (07/08/2025 9:23 PM EDT) Product Code C6583I91 [facility] BLOO D BANK Dispense Status Transfused BLOOD BANK Blood Expiration Date [id number] BLOOD BANK Unit Number [id number] CH B LOOD BANK Product Blood Type 5100 BLOOD BANK Blood Type O+ CH BLOOD BANK Crossmatch Compatible CH BLOOD BANK Product Code [id number] CH BLOO D BANK Dispense Status Transfused BLOOD BANK Blood Expiration Date [id number] BLOOD BANK Unit Number [id number] B LOOD BANK Product Blood Type 5100 BLOOD BANK Blood Type O+ BLOOD BANK Crossmatch Compatible BLOOD BANK Other Richard Betts CRNA BLOOD BANK PRODUCT ORDERA BLES Final Result BLOOD BANK [address] [place] [address], * (ABNORMAL) Abscess Culture and Gram Stain [...] developed and its performance characteristics determined by [facility] as appropriate for clinical purposes. [...] [facility] [address] [place] [address] * (ABNORMAL) POCT arterial blood gas gem (07/08/2025 8:51 PM EDT) pH, Arterial 7.28(L) 7.35 - 7.45 07/08/2025 8:53 PM EDT [facility] pCO2, Arterial 53(H) 35 - 48 mm Hg 07/08/2025 8:53 PM EDT [facility] pO2, Arterial 152(H) 83 - 108 mm Hg 07/08/2025 8:53 PM EDT [facility] SO2, Arterial 99(H) 94 - 98 % 07/08/2025 8:53 PM EDT [facility] Base Excess, Arterial -2.3(L) -2 - 3 mmol/L 07/08/2025 8:53 PM EDT [facility] HCO3, Arterial 24.9 22 - 26 mmol/L 07/08/2025 8:53 PM EDT [facility] Total Hemoglobin, Arterial, Whole Blood 10.9(L) 11.2 - 15.7 g/dL 07/08/2025 8:53 PM EDT [facility] Hematocrit, Arterial 33.0(L) 34.0 - 45.0 % 07/08/2025 8:53 PM EDT [facility] Sodium, Arterial 131(L) 136 - 145 mmol/L 07/08/2025 8:53 PM EDT [facility] Potassium, Arterial 3.8 3.6 - 4.9 mmol/L 07/08/2025 8:53 PM EDT [facility] Chloride, Whole Blood 98 97 - 107 mmol/L 07/08/2025 8:53 PM EDT [facility] Glucose, Arterial 418(H) 74 - 99 mg/dL 07/08/2025 8:53 PM EDT [facility] Ionized Calcium, Arterial 4.9 4.6 - 5.1 mg/dL 07/08/2025 8:53 PM EDT [facility] Lactate, Arterial 1.6 0.5 - 1.6 mmol/L 07/08/2025 8:53 PM EDT [facility] Body Temperature 37.0 Celsius 07/08/2025 8:53 PM EDT [facility] pH, Temp Corrected, Arterial 7.28(L) 7.35 - 7.45 07/08/2025 8:53 PM EDT [facility] pCO2, Temp Corrected, Arterial 53(H) 35 - 48 mm Hg 07/08/2025 8:53 PM EDT [facility] pO2, Temp Corrected, Arterial 152(H) 83 - 108 mm Hg 07/08/2025 8:53 PM EDT [facility] Chargemaster Specialist ID Yadi Goel 07/08/2025 8:53 PM EDT [facility] Blood, Arterial Whole blood specimen / Unknown 07/08/2025 8:51 PM EDT 07/08/2025 8:53 PM EDT us Brittany Crawford MD LAB POINT OF CARE TEST DOCKED DEVICE UNSOLICITED RESULTS Final Result Performing Organization Address City/State/[facility] Co de Phone Number [facility] [address] [place] [address] * [place] AN CENTRAL LINE TRIPLE LUMEN, [...] and Staff Patient location during procedure: OR WASTE COLLECTOR: Richard Betts CRNA Performed: KING Patient Condition Indications for [...] HIV 1/2 Differentiation (07/08/2025 6:14 PM EDT) [facility] HIV 1 & 2 Antibody/Antigen Screen Non Reactive Non Reactive 07/08/2025 7:12 PM EDT [facility] Comment:Screening for HIV 1 & 2 antibodies, and P24 antigen is NONREACTIVE. No confirmatory testing is required. Blood Venous blood specimen / Unknown Venipuncture / Unknown 07/08/2025 6:14 PM EDT 07/08/2025 6:30 PM EDT Result [facility] Kyle Mckinney MD LAB BLOOD ORDERABLES Fi nal Result [facility] [address] [place] [address] * (ABNORMAL) Lactic acid, venous (07/08/2025 6:14 PM EDT) Pathologist [facility] Lactate, Venous, Whole Blood 2.6(H) 0.5 - 2.2 mmol/L LAB HEMATOLOGY METHOD 07/08/2025 6:29 PM EDT [facility] Blood Venous blood specimen / Unknown Venipuncture / Unknown 07/08/2025 6:14 PM EDT 07/08/2025 6:23 PM EDT Kyle Mckinney MD LAB BLOOD ORDERABLES Fi nal Result Performing Organization Address City/[facility]/ZIP Co de Phone Number [facility] [address] [place] [address] * Hepatitis C Antibody - ED (07/08/2025 6:14 PM EDT) [facility] Hepatitis C Antibody Negative Negative 07/08/2025 7:12 PM EDT [facility] Blood Venous blood specimen / Unknown Venipuncture / Unknown 07/08/2025 6:14 PM EDT 07/08/2025 6:30 PM EDT us Kyle Mckinney MD LAB BLOOD ORDERABLES Fi nal Result Performing Organization Address City/[facility]/[place] [address] * (ABNORMAL) CBC w/diff (07/08/2025 6:14 PM EDT) [facility] WBC Count 26.15(H) 3.70 - 10.30 10*3/uL [...] [facility] - 07/08/2025 9:04 PM EDT Therapeutic decision making should be based on absolute values, rather than percentages. Kyle Mckinney MD LAB BLOOD ORDERABLES Fi nal Result Performing Organization Address City/[facility]/ZIP Co de Phone Number [facility] [address] [place] [address] * Type and screen (07/08/2025 6:14 PM [...] ORD ERABLES Final Result Performing Organization Address City/[facility]/ZIP Co de Phone Number BLOOD BANK [address] [place] [address], [place] * (ABNORMAL) C-Reactive protein (07/08/2025 6:14 [...] [facility] [address] [place] [address] * (ABNORMAL) CMP (07/08/2025 6:14 PM EDT) [...] [facility] [address] [place] [address] * [place] CRITICAL CARE, E/M 30-74 MINUTES [...] from Last 3 Months Insurance Care Teams Media Producer Relationship Specialty Start Date End Date Yenny Dhillon APRN [address] [place] [address] PCP - General 07/22/23
--- OUTSIDE RECORDS SUMMARY | 2025-09-26 20:55 | XMS_ITS | Clinical Summary ---
Author Organization [facility] Address [address] [place] [address] Phone Care Team Providers Care Clinical Laboratory Aide Name Role Phone Unavailable Primary Care Provider [...] skin) 0.25 mg once a week. Active oqzimbet-nrmq-a bp4-L-ielg-bosw (OSTEO BI-FLEX TRIPLE STRENGTH) 750 mg-644 mg- 30 mg-1 mg Oral Tablet Take 1 Tablet by mouth 2 times daily. Active docusate sodium (COLACE) 100 mg Oral Capsule Take 200 mg by mouth daily. Active budesonide-form oteroL (SYMBICORT) 160-4.5 mcg/actuation Inhl HFA Aerosol Inhaler Inhale 2 Puffs into the lungs 2 times daily. Active fluticasone propionate (FLONASE) 50 mcg/actuation Nasl [place], Suspension 2 Sprays by Nasal route 2 [...] Date Smoking Tobacco: Every Day Cigarettes 1.5 38.3 Started: 06/09/1987 Passive Smoke Exposure: Current Smokeless [...] eGFR 06/09/2024 06/09/2023, 06/09/2023, 06/08/2023 COVID-19 Vaccine (1 - 2024-2 6 season) 2025 Influenza Vaccine (#1) 2025 Meningococcal [...] - 145 mmol/L 06/09/2023 6:[address] [facility] Potassium 3.9 3.5 - 5.0 mmol/L 06/09/2023 6:37 AM EDT [facility] Chloride 98 98 - 107 mmol/L 06/09/2023 6:37 AM EDT [facility] Total CO2 27 22 - 29 mmol/L 06/09/2023 6:37 AM EDT [facility] Anion Gap 12 7 - 16 mmol/L 06/09/2023 6:37 AM EDT [facility] Calcium 10.0 8.6 - 10.4 mg/dL 06/09/2023 6:37 AM EDT [facility] Glucose Lvl 116(H) 74 - 100 mg/dL 06/09/2023 6:37 AM EDT [facility] BUN 33(H) 6 - 20 mg/dL 06/09/2023 6:37 AM EDT [facility] Creatinine 1.57(H) 0.51 - 1.30 mg/dL 06/09/2023 6:37 AM EDT [facility] eGFR (CKD-EPIcr 2020) 40(L) >=60 mL/min/1.7 3 m2 06/09/2023 6:37 AM EDT [facility] Comment:Estimated GFR was ca lculated using the CKD-EPIcr (2020) equation refit without race. The equation is recommended by the National Kidney Foundation - [place] [employer] Nephrology Task Force. Blood VENOUS BLOOD / Unknown Venipuncture / Unknown 06/09/2023 5:45 AM EDT 06/09/2023 6:13 AM EDT us Sakshi Bolton GSA COORDINATOR CHEMISTRY ORDERABLES Fi nal Result [facility] [address] [place] [address] from Last 3 Months or Most Recently Relevant to Health Maintenance Insurance MEDICAID Advance Directives For more information, please contact: [phone] * Full Code (Latest Code Status on File) Date Activated Date Inactivated Comments 06/09/2023 3:43 AM 06/09/2023 11:28 PM
--- OUTSIDE RECORDS SUMMARY | 2025-09-26 20:56 | XMS_ITS | Encounter Summary ---
Author Organization [employer] ([place], [place], [place], [place], [place]) Address [address] [place] [address] Care Team Providers Care Workflow Developer Name Role Phone Yenny Dhillon APRN Primary Care Provider [phone] Encounter Details Date Type Department Care Team [...] Date Franko rded Speak language other than [place] Citizen at home Not on file 12/23/2023 Want help with school or training Not on file 12/23/2023 Substance Use Answer Date Recorded Used prescription meds for non-medical reasons N ot on file 12/23/2023 Used illegal drugs past 12 months Not on file 12/23/2023 Comments Unknown Sex and Gender Information Value Date Recorded Sex Assigned at Not on file 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 HEAT TREATING OPERATOR Gender Identity Not on file Sexual Orientation Not on file documented as of this encounter Plan of Treatment Upcoming Encounters Date Type Department Care Team (Late st Contact Info) Description 09/27/2025 10:45 AM EST Clinical Support [facility] 1 [place] [address] 09/30/2025 1:00 PM EST Clinical Support [facility] 1 [place] [address] 10/02/2025 1:00 PM EST Office Visit [address] [phone] Sukhdev Bazan Jr., MD [address] [place] [address] 10/07/2025 10:15 AM EST Clinical Support [address] [address] 10/09/2025 2:20 PM EST Office Visit [address] [phone] Sukhdev Bazan Jr., MD [address] [place] [address] 10/11/2025 10:15 AM EST Clinical Support [facility] 1 [place] [address] documented as of this encounter Visit Diagnoses Not on filedocumented in this encounter Care Teams Workflow Developer Relationship Specialty Start Date End Date Yenny Dhillon, GLORIA [address] [place] [address] PCP - General Nurse Practitioner 03/13/24 documented as of this encounter
--- OUTSIDE RECORDS SUMMARY | 2025-09-26 20:56 | XMS_ITS | Encounter Summary ---
Author Organization [employer] ([place], [place], [place], [place], [place]) Address [address] [place] [address] Care Team Providers Care Roller Leveler Operator Name Role Phone Yenny Dhillon GLORIA Primary Care Provider [phone] Reason for Visit * Reason Onset Date Comments Appointment 08/16/2025 Encounter Details Date Type Department Care Team (Late st Contact Info) Description 08/16/2025 Telephone [facility] 1 [place] [address] Sukhdev Bazan Jr., MD [address] [place] [address] Appointment Social History Tobacco Use Types [...] Date Franko rded Speak language other than South Sudanese at home Not on file 12/23/2023 Want help with school or training Not on file 12/23/2023 Substance Use Answer Date Recorded Used prescription meds for non-medical reasons N ot on file 12/23/2023 Used illegal drugs past 12 months Not on file 12/23/2023 Comments Unknown Sex and Gender Information Value Date Recorded Sex Assigned at Not on file 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 MANAGER VALIDATION Gender Identity Not on file Sexual Orientation Not on file documented as of this encounter Miscellaneous Notes * Telephone Encounter - Adriane Lombardi - 08/16/2025 1:39 PM EDT Patient was [...] Description 09/27/2025 10:45 AM EST Clinical Support [address] [address] 09/30/2025 1:00 PM EST Clinical Support [address] [address] 10/02/2025 1:00 PM EST Office Visit [address] [address] Sukhdev Bazan Jr., MD [address] [place] [address] 10/07/2025 10:15 AM EST Clinical Support [address] [address] 10/09/2025 2:20 PM EST Office Visit [address] [address] Sukhdev Bazan Jr., MD [address] [place] [address] 10/11/2025 10:15 AM EST Clinical Support [facility] 1 [place] [address] documented as of this encounter Visit Diagnoses Not on filedocumented in this encounter Care Teams Roller Leveler Operator Relationship Specialty Start Date End Date Yenny Dhillon, WEB APPLICATION DEV SPECIALIST [address] [place] [address] PCP - General Nurse Practitioner 03/13/24 documented as of this encounter
--- OUTSIDE RECORDS SUMMARY | 2025-09-26 20:56 | XMS_ITS | Encounter Summary ---
Author Organization [employer] ([place], [place], [place], [place], [place]) Address [address] [place] [address] Care Team Providers Care Manager Telecom Name Role Phone Yenny Dhillon APRN Primary Care Provider [phone] Encounter Details Date Type Department Care Team [...] Date Franko rded Speak language other than Mosotho at home Not on file 12/23/2023 Want help with school or training Not on file 12/23/2023 Substance Use Answer Date Recorded Used prescription meds for non-medical reasons N ot on file 12/23/2023 Used illegal drugs past 12 months Not on file 12/23/2023 Comments Unknown Sex and Gender Information Value Date Recorded Sex Assigned at Not on file 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 Gender Identity Not on file Sexual Orientation Not on file documented as of this encounter Plan of Treatment Upcoming Encounters Date Type Department Care Team (Late st Contact Info) Description 09/27/2025 10:45 AM EST Clinical Support [facility] 1 [place] [address] 09/30/2025 1:00 PM EST Clinical Support [facility] 1 [place] [address] 10/02/2025 1:00 PM EST Office Visit [address] [phone] Sukhdev Bazan Jr., MD [address] [place] [address] 10/07/2025 10:15 AM EST Clinical Support [address] [address] 10/09/2025 2:20 PM EST Office Visit [address] [phone] Sukhdev Bazan Jr., MD [address] [place] [address] 10/11/2025 10:15 AM EST Clinical Support [facility] 1 [place] [address] documented as of this encounter Visit Diagnoses Not on filedocumented in this encounter Care Teams Manager Telecom Relationship Specialty Start Date End Date Yenny Dhillon, GLORIA [address] [place] [address] PCP - General Nurse Practitioner 03/13/24 documented as of this encounter
--- OUTSIDE RECORDS SUMMARY | 2025-09-26 20:56 | XMS_ITS | Encounter Summary ---
Author Organization [employer] ([place], [place], [place], [place], [place]) Address [address] [place] [address] Care Team Providers Care Coupon Redemption Clerk Name Role Phone Yenny Dhillon APRN Primary Care Provider [phone] Encounter Details Date Type Department Care Team (Latest Contact Info) Description 08/21/2025 Travel Social History Tobacco Use Types Packs/Day [...] Date Franko rded Speak language other than Pakistani at home Not on file 12/23/2023 Want help with school or training Not on file 12/23/2023 Substance Use Answer Date Recorded Used prescription meds for non-medical reasons N ot on file 12/23/2023 Used illegal drugs past 12 months Not on file 12/23/2023 Comments Unknown Sex and Gender Information Value Date Recorded Sex Assigned at Not on file 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 Gender Identity Not on file Sexual Orientation Not on file documented as of this encounter Plan of Treatment Upcoming Encounters Date Type Department Care Team (Late st Contact Info) Description 09/27/2025 10:45 AM EST Clinical Support [facility] 1 [place] [address] 09/30/2025 1:00 PM EST Clinical Support [facility] 1 [place] [address] 10/02/2025 1:00 PM EST Office Visit [address] [phone] Sukhdev Bazan Jr., MD [address] [place] [address] 10/07/2025 10:15 AM EST Clinical Support [address] [address] 10/09/2025 2:20 PM EST Office Visit [address] [phone] Sukhdev Bazan Jr., MD [address] [place] [address] 10/11/2025 10:15 AM EST Clinical Support [facility] 1 [place] [address] documented as of this encounter Visit Diagnoses Not on filedocumented in this encounter Care Teams Coupon Redemption Clerk Relationship Specialty Start Date End Date Yenny Dhillon, GLORIA [address] [place] [address] PCP - General Nurse Practitioner 03/13/24 documented as of this encounter
--- OUTSIDE RECORDS SUMMARY | 2025-09-26 20:56 | XMS_ITS | Encounter Summary ---
Author Organization [employer] ([place], [place], [place], [place], [place]) Address [address] [place] [address] Care Team Providers Care Canvas Goods Fabricator Name Role Phone Yenny Dhillon APRN Primary Care Provider [phone] Encounter Details Date Type Department Care Team [...] Date Franko rded Speak language other than Salvadorean at home Not on file 12/23/2023 Want help with school or training Not on file 12/23/2023 Substance Use Answer Date Recorded Used prescription meds for non-medical reasons N ot on file 12/23/2023 Used illegal drugs past 12 months Not on file 12/23/2023 Comments Unknown Sex and Gender Information Value Date Recorded Sex Assigned at Not on file 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 Gender Identity Not on file Sexual Orientation Not on file documented as of this encounter Plan of Treatment Upcoming Encounters Date Type Department Care Team (Late st Contact Info) Description 09/27/2025 10:45 AM EST Clinical Support [facility] 1 [place] [address] 09/30/2025 1:00 PM EST Clinical Support [facility] 1 [place] [address] 10/02/2025 1:00 PM EST Office Visit [address] [phone] Sukhdev Bazan Jr., MD [address] [place] [address] 10/07/2025 10:15 AM EST Clinical Support [address] [address] 10/09/2025 2:20 PM EST Office Visit [address] [phone] Sukhdev Bazan Jr., MD [address] [place] [address] 10/11/2025 10:15 AM EST Clinical Support [facility] 1 [place] [address] documented as of this encounter Visit Diagnoses Not on filedocumented in this encounter Care Teams Canvas Goods Fabricator Relationship Specialty Start Date End Date Yenny Dhillon, GLORIA [address] [place] [address] PCP - General Nurse Practitioner 03/13/24 documented as of this encounter
--- OUTSIDE RECORDS SUMMARY | 2025-09-26 20:58 | XMS_ITS | Encounter Summary ---
Author Organization Healthcare Address [address] [place] [address] Care Team Providers Care Slate Mixer Name Role Phone Alejo Yennystone Murrieta APRN Primary Care Provider [phone] Encounter Details Date Type Department Care Team (Late st Contact Info) Description 08/09/2025 Orders Only [place] [facility] [address] [place] [address] Marj Matamoros, LADLE PATCHER [address] [place] [address] Bladder spasms (Primary Dx) Social [...] were you homeless or living in a alf (including now)? No 07/15/2025 [facility] Utilities Answer Date Recorded In the [...] Description 09/30/2025 10:20 AM EST Office Visit [place] [facility] [address], [address] [place] [address] Marj Matamoros, LADLE PATCHER [address] [facility] [address] [place] [address] 11/19/2025 8:20 AM EST Office Visit Medical Office Building Urology [address] [facility], [address] [place] [address] Marj Matamoros, LADLE PATCHER [address] [facility] [address] [place] [address] documented as of this encounter [...] documented as of this encounter Care Teams Slate Mixer Relationship Specialty Start Date End Date Yenny Dhillon APRN [address] [place] [address] PCP - General 07/22/23 documented as of this encounter
--- OUTSIDE RECORDS SUMMARY | 2025-09-26 20:58 | XMS_ITS | Encounter Summary ---
Author Organization Healthcare Address [address] [place] [address] Care Team Providers Care Orthotics Prosthetics Technician Name Role Phone Yenny Dhillon APRN Primary Care Provider [phone] Encounter Details Date Type Department Care Team [...] a senior living (including now)? No 07/15/2025 [facility] Utilities Answer Date Recorded In the [...] Month) No 025 5:44 PM EDT Brittany Massey, RN 2. Non-Specific Active Suici silvia Thoughts (Past 1 Month) No 08/03/2025 5:44 PM EDT Annie Massey RN 6. Suicidal Behavior (Lifetime) No 5:44 PM EDT Brittany Massey RN documented as of this encounter Plan of Treatment Upcoming Encounters Date Type Department Care Team (Late st Contact Info) Description 09/30/2025 10:20 AM EST Office Visit [place] [facility] [address] [place] [address] Marj Matamoros, ROUTE SALES ASSOCIATE [address] [place] [address] 11/19/2025 8:20 AM EST Office Visit Medical Office Building Urology [address] [facility], [address] [place] [address] Marj Matamoros, ROUTE SALES ASSOCIATE [address] [facility] [address] [place] [address] documented as of this encounter [...] documented as of this encounter Care Teams Orthotics Prosthetics Technician Relationship Specialty Start Date End Date Yenny Dhillon APRN [address] [place] [address] PCP - General 07/22/23 documented as of this encounter
--- OUTSIDE RECORDS SUMMARY | 2025-09-26 20:59 | XMS_ITS | Encounter Summary ---
Author Organization [employer] ([place], [place], [place], [place], [place]) Address [address] [place] [address] Care Team Providers Care Flight Operations Dispatch Clerk Name Role Phone Yenny Dhillon APRN Primary Care Provider [phone] Encounter Details Date Type Department Care Team [...] Date Franko rded Speak language other than Lao at home Not on file 12/23/2023 Want help with school or training Not on file 12/23/2023 Substance Use Answer Date Recorded Used prescription meds for non-medical reasons N ot on file 12/23/2023 Used illegal drugs past 12 months Not on file 12/23/2023 Comments Unknown Sex and Gender Information Value Date Recorded Sex Assigned at Not on file 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 Gender Identity Not on file Sexual Orientation Not on file documented as of this encounter Plan of Treatment Upcoming Encounters Date Type Department Care Team (Late st Contact Info) Description 09/27/2025 10:45 AM EST Clinical Support [facility] 1 [place] [address] 09/30/2025 1:00 PM EST Clinical Support [facility] 1 [place] [address] 10/02/2025 1:00 PM EST Office Visit [address] [phone] Sukhdev Bazan Jr., MD [address] [place] [address] 10/07/2025 10:15 AM EST Clinical Support [address] [address] 10/09/2025 2:20 PM EST Office Visit [address] [phone] Sukhdev Bazan Jr., MD [address] [place] [address] 10/11/2025 10:15 AM EST Clinical Support [facility] 1 [place] [address] documented as of this encounter Visit Diagnoses Not on filedocumented in this encounter Care Teams Flight Operations Dispatch Clerk Relationship Specialty Start Date End Date Yenny Dhillon, GLORIA [address] [place] [address] PCP - General Nurse Practitioner 03/13/24 documented as of this encounter
--- OUTSIDE RECORDS SUMMARY | 2025-09-26 21:02 | XMS_ITS | Encounter Summary ---
Author Organization [employer] ([place], [place], [place], [place], [place]) Address [address] [place] [address] Care Team Providers Care Pediatric Pathologist Name Role Phone Yenny Dhillon APRN Primary Care Provider [phone] Encounter Details Date Type Department Care Team (Latest Contact Info) Description 09/04/2025 Travel Social History Tobacco Use Types Packs/Day [...] Date Franko rded Speak language other than Senegalese at home Not on file 12/23/2023 Want help with school or training Not on file 12/23/2023 Substance Use Answer Date Recorded Used prescription meds for non-medical reasons N ot on file 12/23/2023 Used illegal drugs past 12 months Not on file 12/23/2023 Comments Unknown Sex and Gender Information Value Date Recorded Sex Assigned at Not on file 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 Gender Identity Not on file Sexual Orientation Not on file documented as of this encounter Plan of Treatment Upcoming Encounters Date Type Department Care Team (Late st Contact Info) Description 09/27/2025 10:45 AM EST Clinical Support [facility] 1 [place] [address] 09/30/2025 1:00 PM EST Clinical Support [facility] 1 [place] [address] 10/02/2025 1:00 PM EST Office Visit [address] [phone] Sukhdev Bazan Jr., MD [address] [place] [address] 10/07/2025 10:15 AM EST Clinical Support [address] [address] 10/09/2025 2:20 PM EST Office Visit [address] [phone] Sukhdev Bazan Jr., MD [address] [place] [address] 10/11/2025 10:15 AM EST Clinical Support [facility] 1 [place] [address] documented as of this encounter Visit Diagnoses Not on filedocumented in this encounter Care Teams Pediatric Pathologist Relationship Specialty Start Date End Date Yenny Dhillon, GLORIA [address] [place] [address] PCP - General Nurse Practitioner 03/13/24 documented as of this encounter
--- OUTSIDE RECORDS SUMMARY | 2025-09-26 21:02 | XMS_ITS | Encounter Summary ---
Author Organization [employer] ([place], [place], [place], [place], [place]) Address [address] [place] [address] Care Team Providers Care Author Name Role Phone Yenny Dhillon APRN Primary Care Provider [phone] Encounter Details Date Type Department Care Team (Latest Contact Info) Description 08/26/2025 Travel Social History Tobacco Use Types Packs/Day [...] Date Franko rded Speak language other than Grenadian at home Not on file 12/23/2023 Want help with school or training Not on file 12/23/2023 Substance Use Answer Date Recorded Used prescription meds for non-medical reasons N ot on file 12/23/2023 Used illegal drugs past 12 months Not on file 12/23/2023 Comments Unknown Sex and Gender Information Value Date Recorded Sex Assigned at Not on file 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 1 [place] [address] 09/30/2025 1:00 PM EST Clinical Support [facility] 1 [place] [address] 10/02/2025 1:00 PM EST Office Visit [address] [phone] Sukhdev Bazan Jr., MD [address] [place] [address] 10/07/2025 10:15 AM EST Clinical Support [address] [address] 10/09/2025 2:20 PM EST Office Visit [address] [phone] Sukhdev Bazan Jr., MD [address] [place] [address] 10/11/2025 10:15 AM EST Clinical Support [facility] 1 [place] [address] documented as of this encounter Visit Diagnoses Not on filedocumented in this encounter Care Teams Author Relationship Specialty Start Date End Date Yenny Dhillon, GLORIA [address] [place] [address] PCP - General Nurse Practitioner 03/13/24 documented as of this encounter
--- OUTSIDE RECORDS SUMMARY | 2025-09-26 21:02 | XMS_ITS | Encounter Summary ---
Author Organization [employer] ([place], [place], [place], [place], [place]) Address [address] [place] [address] Care Team Providers Care Medical Terminologist Name Role Phone Yenny Dhillon APRN Primary Care Provider [phone] Encounter Details Date Type Department Care Team (Latest Contact Info) Description 09/09/2025 Travel Social History Tobacco Use Types Packs/Day [...] Date Franko rded Speak language other than Djiboutian at home Not on file 12/23/2023 Want help with school or training Not on file 12/23/2023 Substance Use Answer Date Recorded Used prescription meds for non-medical reasons N ot on file 12/23/2023 Used illegal drugs past 12 months Not on file 12/23/2023 Comments Unknown Sex and Gender Information Value Date Recorded Sex Assigned at Not on file 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 OPERATOR Gender Identity Not on file Sexual Orientation Not on file documented as of this encounter Plan of Treatment Upcoming Encounters Date Type Department Care Team (Late st Contact Info) Description 09/27/2025 10:45 AM EST Clinical Support [facility] 1 [place] [address] 09/30/2025 1:00 PM EST Clinical Support [facility] 1 [place] [address] 10/02/2025 1:00 PM EST Office Visit [address] [phone] Sukhdev Bazan Jr., MD [address] [place] [address] 10/07/2025 10:15 AM EST Clinical Support [address] [address] 10/09/2025 2:20 PM EST Office Visit [address] [phone] Sukhdev Bazan Jr., MD [address] [place] [address] 10/11/2025 10:15 AM EST Clinical Support [facility] 1 [place] [address] documented as of this encounter Visit Diagnoses Not on filedocumented in this encounter Care Teams Medical Terminologist Relationship Specialty Start Date End Date Yenny Dhillon, GLORIA [address] [place] [address] PCP - General Nurse Practitioner 03/13/24 documented as of this encounter
--- OUTSIDE RECORDS SUMMARY | 2025-09-26 21:02 | XMS_ITS | Encounter Summary ---
Author Organization [employer] ([place], [place], [place], [place], [place]) Address [address] [place] [address] Care Team Providers Care Soft Metals Engraver Hand Name Role Phone Yenny Dhillon APRN Primary Care Provider [phone] Encounter Details Date Type Department Care Team (Latest Contact Info) Description 09/06/2025 Travel Social History Tobacco Use Types Packs/Day [...] Date Franko rded Speak language other than German at home Not on file 12/23/2023 Want help with school or training Not on file 12/23/2023 Substance Use Answer Date Recorded Used prescription meds for non-medical reasons N ot on file 12/23/2023 Used illegal drugs past 12 months Not on file 12/23/2023 Comments Unknown Sex and Gender Information Value Date Recorded Sex Assigned at Not on file 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 1 [place] [address] 09/30/2025 1:00 PM EST Clinical Support [facility] 1 [place] [address] 10/02/2025 1:00 PM EST Office Visit [address] [phone] Sukhdev Bazan Jr., MD [address] [place] [address] 10/07/2025 10:15 AM EST Clinical Support [address] [address] 10/09/2025 2:20 PM EST Office Visit [address] [phone] Sukhdev Bazan Jr., MD [address] [place] [address] 10/11/2025 10:15 AM EST Clinical Support [facility] 1 [place] [address] documented as of this encounter Visit Diagnoses Not on filedocumented in this encounter Care Teams Soft Metals Engraver Hand Relationship Specialty Start Date End Date Yenny Dhillon, GLORIA [address] [place] [address] PCP - General Nurse Practitioner 03/13/24 documented as of this encounter
--- OUTSIDE RECORDS SUMMARY | 2025-09-26 21:02 | XMS_ITS | Encounter Summary ---
Author Organization [employer] ([place], [place], [place], [place], [place]) Address [address] [place] [address] Care Team Providers Care Superintendent Sanitation Name Role Phone Yenny Dhillon APRN Primary Care Provider [phone] Encounter Details Date Type Department Care Team [...] Date Franko rded Speak language other than [place] Citizen at home Not on file 12/23/2023 Want help with school or training Not on file 12/23/2023 Substance Use Answer Date Recorded Used prescription meds for non-medical reasons N ot on file 12/23/2023 Used illegal drugs past 12 months Not on file 12/23/2023 Comments Unknown Sex and Gender Information Value Date Recorded Sex Assigned at Not on file 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 Gender Identity Not on file Sexual Orientation Not on file documented as of this encounter Plan of Treatment Upcoming Encounters Date Type Department Care Team (Late st Contact Info) Description 09/27/2025 10:45 AM EST Clinical Support [facility] 1 [place] [address] 09/30/2025 1:00 PM EST Clinical Support [facility] 1 [place] [address] 10/02/2025 1:00 PM EST Office Visit [address] [phone] Sukhdev Bazan Jr., MD [address] [place] [address] 10/07/2025 10:15 AM EST Clinical Support [address] [address] 10/09/2025 2:20 PM EST Office Visit [address] [phone] Sukhdev Bazan Jr., MD [address] [place] [address] 10/11/2025 10:15 AM EST Clinical Support [facility] 1 [place] [address] documented as of this encounter Visit Diagnoses Not on filedocumented in this encounter Care Teams Superintendent Sanitation Relationship Specialty Start Date End Date Yenny Dhillon, GLORIA [address] [place] [address] PCP - General Nurse Practitioner 03/13/24 documented as of this encounter
--- OUTSIDE RECORDS SUMMARY | 2025-09-26 21:02 | XMS_ITS | Encounter Summary ---
Author Organization [employer] ([place], [place], [place], [place], [place]) Address [address] [place] [address] Care Team Providers Care Alumni Secretary Name Role Phone Yenny Dhillon APRN Primary Care Provider [phone] Encounter Details Date Type Department Care Team [...] Date Franko rded Speak language other than [place] at home Not on file 12/23/2023 Want help with school or training Not on file 12/23/2023 Substance Use Answer Date Recorded Used prescription meds for non-medical reasons N ot on file 12/23/2023 Used illegal drugs past 12 months Not on file 12/23/2023 Comments Unknown Sex and Gender Information Value Date Recorded Sex Assigned at Not on file 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 CURATOR HERBARIUM Gender Identity Not on file Sexual Orientation Not on file documented as of this encounter Plan of Treatment Upcoming Encounters Date Type Department Care Team (Late st Contact Info) Description 09/27/2025 10:45 AM EST Clinical Support [facility] 1 [place] [address] 09/30/2025 1:00 PM EST Clinical Support [facility] 1 [place] [address] 10/02/2025 1:00 PM EST Office Visit [address] [phone] Sukhdev Bazan Jr., MD [address] [place] [address] 10/07/2025 10:15 AM EST Clinical Support [address] [address] 10/09/2025 2:20 PM EST Office Visit [address] [phone] Sukhdev Bazan Jr., MD [address] [place] [address] 10/11/2025 10:15 AM EST Clinical Support [facility] 1 [place] [address] documented as of this encounter Visit Diagnoses Not on filedocumented in this encounter Care Teams Alumni Secretary Relationship Specialty Start Date End Date Yenny Dhillon, GLORIA [address] [place] [address] PCP - General Nurse Practitioner 03/13/24 documented as of this encounter
--- OUTSIDE RECORDS SUMMARY | 2025-09-26 21:02 | XMS_ITS | Encounter Summary ---
Author Organization [employer] ([place], [place], [place], [place], [place]) Address [address] [place] [address] Care Team Providers Care Nut Sifter Name Role Phone Yenny Dhillon APRN Primary Care Provider [phone] Encounter Details Date Type Department Care Team (Latest Contact Info) Description 09/11/2025 Travel Social History Tobacco Use Types Packs/Day [...] Date Franko rded Speak language other than [place] Islander at home Not on file 12/23/2023 Want help with school or training Not on file 12/23/2023 Substance Use Answer Date Recorded Used prescription meds for non-medical reasons N ot on file 12/23/2023 Used illegal drugs past 12 months Not on file 12/23/2023 Comments Unknown Sex and Gender Information Value Date Recorded Sex Assigned at Not on file 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 LOSS PREVENTION SPECIALIST Gender Identity Not on file Sexual Orientation Not on file documented as of this encounter Plan of Treatment Upcoming Encounters Date Type Department Care Team (Late st Contact Info) Description 09/27/2025 10:45 AM EST Clinical Support [facility] 1 [place] [address] 09/30/2025 1:00 PM EST Clinical Support [facility] 1 [place] [address] 10/02/2025 1:00 PM EST Office Visit [address] [phone] Sukhdev Bazan Jr., MD [address] [place] [address] 10/07/2025 10:15 AM EST Clinical Support [address] [address] 10/09/2025 2:20 PM EST Office Visit [address] [phone] Sukhdev Bazan Jr., MD [address] [place] [address] 10/11/2025 10:15 AM EST Clinical Support [facility] 1 [place] [address] documented as of this encounter Visit Diagnoses Not on filedocumented in this encounter Care Teams Nut Sifter Relationship Specialty Start Date End Date Yenny Dhillon, GLORIA [address] [place] [address] PCP - General Nurse Practitioner 03/13/24 documented as of this encounter
--- OUTSIDE RECORDS SUMMARY | 2025-09-26 21:02 | XMS_ITS | Encounter Summary ---
Author Organization [employer] ([place], [place], [place], [place], [place]) Address [address] [place] [address] Care Team Providers Care Detention Officer Name Role Phone Yenny Dhillon APRN Primary Care Provider [phone] Encounter Details Date Type Department Care Team (Latest Contact Info) Description 08/28/2025 Travel Social History Tobacco Use Types Packs/Day [...] Date Franko rded Speak language other than Luxembour[place] at home Not on file 12/23/2023 Want help with school or training Not on file 12/23/2023 Substance Use Answer Date Recorded Used prescription meds for non-medical reasons N ot on file 12/23/2023 Used illegal drugs past 12 months Not on file 12/23/2023 Comments Unknown Sex and Gender Information Value Date Recorded Sex Assigned at Not on file 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 Gender Identity Not on file Sexual Orientation Not on file documented as of this encounter Plan of Treatment Upcoming Encounters Date Type Department Care Team (Late st Contact Info) Description 09/27/2025 10:45 AM EST Clinical Support [facility] 1 [place] [address] 09/30/2025 1:00 PM EST Clinical Support [facility] 1 [place] [address] 10/02/2025 1:00 PM EST Office Visit [address] [phone] Sukhdev Bazan Jr., MD [address] [place] [address] 10/07/2025 10:15 AM EST Clinical Support [address] [address] 10/09/2025 2:20 PM EST Office Visit [address] [phone] Sukhdev Bazan Jr., MD [address] [place] [address] 10/11/2025 10:15 AM EST Clinical Support [facility] 1 [place] [address] documented as of this encounter Visit Diagnoses Not on filedocumented in this encounter Care Teams Detention Officer Relationship Specialty Start Date End Date Yenny Dhillon, GLORIA [address] [place] [address] PCP - General Nurse Practitioner 03/13/24 documented as of this encounter
--- OUTSIDE RECORDS SUMMARY | 2025-09-26 21:02 | XMS_ITS | Encounter Summary ---
Author Organization [employer] ([place], [place], [place], [place], [place]) Address [address] [place] [address] Care Team Providers Care Decker Operator Name Role Phone Yenny Dhillon APRN Primary Care Provider [phone] Encounter Details Date Type Department Care Team (Latest Contact Info) Description 08/30/2025 Travel Social History Tobacco Use Types Packs/Day [...] Date Franko rded Speak language other than Trinidadian at home Not on file 12/23/2023 Want help with school or training Not on file 12/23/2023 Substance Use Answer Date Recorded Used prescription meds for non-medical reasons N ot on file 12/23/2023 Used illegal drugs past 12 months Not on file 12/23/2023 Comments Unknown Sex and Gender Information Value Date Recorded Sex Assigned at Not on file 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 Gender Identity Not on file Sexual Orientation Not on file documented as of this encounter Plan of Treatment Upcoming Encounters Date Type Department Care Team (Late st Contact Info) Description 09/27/2025 10:45 AM EST Clinical Support [facility] 1 [place] [address] 09/30/2025 1:00 PM EST Clinical Support [facility] 1 [place] [address] 10/02/2025 1:00 PM EST Office Visit [address] [phone] Sukhdev Bazan Jr., MD [address] [place] [address] 10/07/2025 10:15 AM EST Clinical Support [address] [address] 10/09/2025 2:20 PM EST Office Visit [address] [phone] Sukhdev Bazan Jr., MD [address] [place] [address] 10/11/2025 10:15 AM EST Clinical Support [facility] 1 [place] [address] documented as of this encounter Visit Diagnoses Not on filedocumented in this encounter Care Teams Decker Operator Relationship Specialty Start Date End Date Yenny Dhillon, GLORIA [address] [place] [address] PCP - General Nurse Practitioner 03/13/24 documented as of this encounter
--- OUTSIDE RECORDS SUMMARY | 2025-09-26 21:02 | XMS_ITS | Encounter Summary ---
Author Organization [employer] ([place], [place], [place], [place], [place]) Address [address] [place] [address] Care Team Providers Care Communications Professional Name Role Phone Yenny Dhillon APRN Primary Care Provider [phone] Reason for Visit * Reason Onset Date Comments Appointment 08/27/2025 See note Encounter Details Date Type Department Care Team (Late st Contact Info) Description 08/27/2025 Telephone [facility] 1 [place] [address] Verito Guillermo, RN Appointment (See note) Social History Tobacco Use Types Packs/Day Years [...] Date Franko rded Speak language other than Hebrew at home Not on file 12/23/2023 Want help with school or training Not on file 12/23/2023 Substance Use Answer Date Recorded Used prescription meds for non-medical reasons N ot on file 12/23/2023 Used illegal drugs past 12 months Not on file 12/23/2023 Comments Unknown Sex and Gender Information Value Date Recorded Sex Assigned at Not on file 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 Her mailbox is full, cannot leave message. Called significant other phone number and it is no longer a working phone number. documented in this encounter Plan of Treatment Upcoming Encounters Date Type Department Care Team (Late st Contact Info) Description 09/27/2025 10:45 AM EST Clinical Support [facility] [address] [address] 09/30/2025 1:00 PM EST Clinical Support [address] [address] 10/02/2025 1:00 PM EST Office Visit [address] [phone] Sukhdev Bazan Jr., MD [address] [place] [address] 10/07/2025 10:15 AM EST Clinical Support [address] [address] 10/09/2025 2:20 PM EST Office Visit [address] [address] Sukhdev Bazan Jr., MD [address] [place] [address] 10/11/2025 10:15 AM EST Clinical Support [address] [address] documented as of this encounter Visit Diagnoses Not on filedocumented in this encounter Care Teams Communications Professional Relationship Specialty Start Date End Date Yenny Dhillon, GOPHERMAN [address] [place] [address] PCP - General Nurse Practitioner 03/13/24 documented as of this encounter
--- OUTSIDE RECORDS SUMMARY | 2025-09-26 21:02 | XMS_ITS | Encounter Summary ---
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 Gender Identity Not on file Sexual Orientation Not on file documented as of this encounter Plan of Treatment Upcoming Encounters Date Type Department Care Team (Late st Contact Info) Description 09/27/2025 10:45 AM EST Clinical Support [facility] 1 [place] [address] 09/30/2025 1:00 PM EST Clinical Support [facility] 1 [place] [address] 10/02/2025 1:00 PM EST Office Visit [facility] 1 [place] [address] Sukhdev Bazan Jr., MD [address] [place] [address] 10/07/2025 10:15 AM EST Clinical Support [address] [address] 10/09/2025 2:20 PM EST Office Visit [address] [phone] Sukhdev Bazan Jr., MD [address] [place] [address] 10/11/2025 10:15 AM EST Clinical Support [facility] 1 [place] [address] documented as of this encounter Visit Diagnoses Not on filedocumented in this encounter Care Teams Snowboarder Relationship Specialty Start Date End Date Yenny Dhillon APRN [address] [place] [address] PCP - General Nurse Practitioner 03/13/24 documented as of this encounter
--- OUTSIDE RECORDS SUMMARY | 2025-09-26 21:02 | XMS_ITS | Clinical Summary ---
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 Active busPIRone (BUSPAR) 15 MG tablet Take 1 tablet (15 mg total) by mouth 3 (three) times daily as needed. 4 Active Cymbalta 60 mg capsule Take 1 capsule (60 mg total) by mouth daily. 4 Active fluticasone propionate (FLONASE) 50 mcg/actuation nasal spray Administer 2 sprays into affected nostril(s). Active folic acid (FOLVITE) 1 MG tablet Take 1 tablet (1,000 mcg total) by mouth daily. 4 Active glucosam-walter- ooo0-S-ebsa-florin sw (Osteo Bi-Flex Triple Strength) 750 mg-644 mg- 30 mg-1 mg Tab Take 1 tablet by mouth 2 (two) times daily. Active Linzess 72 mcg Cap Take 1 capsule (72 mcg total) by mouth every morning. 4 Active loratadine (CLARITIN) 10 mg tablet Take 1 tablet (10 mg total) by mouth daily. 4 Active metFORMIN (GLUCOPHAGE) 500 MG tablet SMARTSI Tablet(s) By Mouth Morning-Evening 4 Active Myrbetriq 25 mg Tb24 ER tablet Take 1 tablet (25 mg total) by mouth daily. 4 Active montelukast (SINGULAIR) 10 mg tablet Take 1 tablet (10 mg total) by mouth. 3 Active naproxen (NAPROSYN) 500 MG tablet Take 1 tablet (500 mg total) by mouth. 3 Active rosuvastatin (CRESTOR) 20 MG tablet Take 1 tablet (20 mg total) by mouth. 3 Active Ozempic 1 mg/dose (4 mg/3 mL) PnIj Inject 1 mg subcutaneously once a week. 4 Active valsartan-hydr ochlorothiazid e (DIOVAN-HCT) 320-12.5 mg per tablet Take 1 tablet by mouth. Active arginine-gluta mine-calcium HMB (Jose) 7-7-1.5 gram pwpk Take 1 Package by mouth 2 (two) times daily with breakfast and dinner. 5 Active lamoTRIgine 100 mg tr24 Take 1 tablet (100 mg total) by mouth daily DIRECTED. Active methocarbamoL (ROBAXIN) 750 MG tablet Take 1 tablet (750 mg total) by mouth 3 (three) times daily. 5 Active metoprolol succinate (TOPROL-XL) 100 MG 24 hr tablet Take 1 tablet (100 mg total) by mouth daily ONCE DAILY. Active Active Problems Problem Noted Date Diagnosed Date Bronchitis 03/28/2024 03/28/2024 Hidradenitis suppurativa 08/31/2023 024 History of hysterectomy 08/31/2023 03/28/20 24 HTN (hypertension), benign 08/31/202303/28 Nocturia 08/31/2023 03/28/2024 [...] including calling Suicide Hotline ( ) or 636. 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) (Primary Dx); Localized tissue (HCC); Other specified local infections of the skin and subcutaneous tissue; Diabetes mellitus with skin ulcer (HCC) 09/25/2025 Travel 09/23/2025 2:15 PM EST Clinical Support [facility] [address] [place] [address] Sukhdev Bazan Jr., MD 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) 09/20/2025 10:45 AM EST Clinical Support [facility] [address] [place] [address] Sukhdev Bazan Jr., MD 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) 09/18/2025 9:30 AM EST Office Visit [facility] [address] [place] [phone] Sukhdev Bazan Jr., MD 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) (Primary Dx); Localized tissue (HCC); Other specified local infections of the skin and subcutaneous tissue; Diabetes mellitus with skin ulcer (HCC) 09/18/2025 Travel 09/16/2025 4:00 PM EST Clinical Support [facility] [address] [place] [address] Sukhdev Bazan Jr., MD 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) 09/16/2025 Travel 09/13/2025 3:30 PM EST Clinical Support [facility] [address] [place] [address] Sukhdev Bazan Jr., MD 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) 09/13/2025 Travel 09/11/2025 3:20 PM EST Office Visit [facility] [address] [place] [address] Sukhdev Bazan Jr., MD 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) (Primary Dx); Localized tissue (HCC); Other specified local infections of the skin and subcutaneous tissue; Diabetes mellitus with skin ulcer (HCC) 09/11/2025 Travel 09/09/2025 4:00 PM EST Clinical Support [facility] [address] [place] [address] Sukhdev Bazan Jr., MD 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) 09/09/2025 Travel 09/06/2025 3:30 PM EDT Clinical Support [facility] [address] [place] [address] Sukhdev Bazan Jr., MD 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) 09/06/2025 Travel 09/04/2025 10:40 AM EDT Office Visit [facility] [address] [place] [address] Sukhdev Bazan Jr., MD 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) (Primary Dx); Localized tissue (HCC); Other specified local infections of the skin and subcutaneous tissue; Diabetes mellitus with skin ulcer (HCC); 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 09/04/2025 Travel 08/30/2025 4:00 PM EDT Clinical Support [facility] [address] [address] Sukhdev Bazan Jr., MD 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) 08/30/2025 Travel 08/28/2025 9:00 AM EDT Office Visit [address] [address] Sukhdev Bazan Jr., MD 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) (Primary Dx); Localized tissue (HCC); Other specified local infections of the skin and subcutaneous tissue; Diabetes mellitus with skin ulcer (HCC) 08/28/2025 Travel 08/27/2025 Telephone [place] [phone] Verito Guillermo, RN Appointment (See note) 08/26/2025 9:00 AM EDT Clinical Support [address] [address] Sukhdev Bazan Jr., MD 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) 08/26/2025 Travel 08/23/2025 3:30 PM EDT Clinical Support [address] [address] Sukhdev Bazan Jr., MD 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) 08/23/2025 Telephone [facility] [address] [phone] Jodie Trivedi APRN Appointment 08/21/2025 3:30 PM EDT Clinical Support [facility] [address] [place] [address] Sukhdev Bazan Jr., MD 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) 08/21/2025 Travel 08/19/2025 3:40 PM EDT Office Visit [facility] [address] [place] [address] Sukhdev Bazan Jr., MD 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) (Primary Dx); Localized tissue (HCC); Other specified local infections of the skin and subcutaneous tissue; Diabetes mellitus with skin ulcer (HCC); 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 08/19/2025 Travel 08/16/2025 1:30 PM EDT Clinical Support [facility] [address] [place] [address] Sukhdev Bazan Jr., MD 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) 08/16/2025 Travel 08/16/2025 Telephone [facility] [address] [place] [address] Sukhdev Bazan Jr., MD Appointment 08/14/2025 3:00 PM EDT Clinical Support [facility] [address] [place] [address] Sukhdev Bazan Jr., MD Localized tissue (HCC) (Primary Dx); 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); Other specified local infections of the skin and subcutaneous tissue; Diabetes mellitus with skin ulcer (HCC); 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 08/12/2025 11:00 AM EDT Office Visit [facility] [address] [place] [address] Sukhdev Bazan Jr., MD 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) (Primary Dx); Localized tissue (HCC); Other specified local infections of the skin and subcutaneous tissue; Diabetes mellitus with skin ulcer (HCC) 08/12/2025 Travel 08/09/2025 10:45 AM EDT Clinical Support [facility] [address] [place] [phone] Sukhdev Bazan Jr., MD 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) 08/09/2025 Travel 08/07/2025 1:00 PM EDT Clinical Support [facility] [address] [place] [phone] Sukhdev Bazan Jr., MD 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) (Primary Dx) 08/07/2025 Travel 08/05/2025 1:10 PM EDT Office Visit [facility] [address] [place] [phone] Sukhdev Bazan Jr., MD 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) (Primary Dx); Localized tissue (HCC); Other specified local infections of the skin and subcutaneous tissue; Diabetes mellitus with skin ulcer (HCC) 08/05/2025 Travel from Last 3 Months Immunizations Immunization Administration Dates Next Due COVID-19 2022- VACCINE MOD JAKE (SPIKEVAX) 12 YRS + ([id number]) 01/24/2024(Deferred: Patient Refused) Covid-19 Vaccine MRNA (PF) 1 8yr+ (Moderna)([id number]) 12/24/2022(Deferred: Patient Refused) Influenza Four-qiv Pf 01/24/2024(Deferre [...] Date Franko rded Speak language other than Danish at home Not on file 12/23/2023 Want help with school or training Not on file 12/23/2023 Substance Use Answer Date Recorded Used prescription meds for non-medical reasons N ot on file 12/23/2023 Used illegal drugs past 12 months Not on file 12/23/2023 Comments Unknown Sex and Gender Information Value Date Recorded Sex Assigned at Not on file 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 Gender Identity Not on file Sexual Orientation Not on file Last Filed Vital Signs Vital Sign Reading Time Taken Comments Blood Pressure 118/81 09/25/2025 2:03 PM EST Pulse 131 09/25/2025 2:03 PM EST Temperature 36.4 C (97.5 F) 09/25/2025 2:03 PM EST Respiratory Rate 18 09/23/2025 2:41 [...] Description 09/27/2025 10:45 AM EST Clinical Support [address] [address] 09/30/2025 1:00 PM EST Clinical Support [address] [address] 10/02/2025 1:00 PM EST Office Visit [address] [address] Sukhdev Bazan Jr., MD [address] [place] [address] 10/07/2025 10:15 AM EST Clinical Support [address] [address] 10/09/2025 2:20 PM EST Office Visit [facility] [address] [place] [phone] Sukhdev Bazan Jr., MD [address] [place] [address] 10/11/2025 10:15 AM EST Clinical Support [facility] [address] [place] [phone] Health Maintenance Due Date Last Done Comments [...] Panel 2021 Hemoglobin A1C 03/28/2024 COVID-19 VACCINE ( season) 2025 Influenza Vaccine (#1) 2025 Procedures Procedure Name Priority Date/Time Associated Diagnosis Comments WV DEBRIDEMENT SUBCUTANEOUS TISSUE EA ADDL 20 SQ CM Routine 09/25/2025 1:50 PM EST 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) Localized tissue (HCC) Other specified local infections of the skin and subcutaneous tissue WV DEBRIDEMENT SUBCUTANEOUS TISSUE EA ADDL 20 SQ CM Routine 09/25/2025 1:50 PM EST 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) Localized tissue (HCC) Other specified local infections of the skin and subcutaneous tissue WV DEBRIDEMENT SUBCUTANEOUS TISSUE EA ADDL 20 SQ CM Routine 09/25/2025 1:50 PM EST 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) Localized tissue (HCC) Other specified local infections of the skin and subcutaneous tissue WV DEBRIDEMENT SUBCUTANEOUS TISSUE EA ADDL 20 SQ CM Routine 09/25/2025 1:50 PM EST 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) Localized tissue (HCC) Other specified local infections of the skin and subcutaneous tissue WV DEBRIDEMENT SUBCUTANEOUS TISSUE EA ADDL 20 SQ CM Routine 09/25/2025 1:50 PM EST 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) Localized tissue (HCC) Other specified local infections of the skin and subcutaneous tissue WV DEBRIDEMENT SUBCUTANEOUS TISSUE EA ADDL 20 SQ CM Routine 09/25/2025 1:50 PM EST 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) Localized tissue (HCC) Other specified local infections of the skin and subcutaneous tissue WV DEBRIDEMENT SUBCUTANEOUS TISSUE EA ADDL 20 SQ CM Routine 09/25/2025 1:50 PM EST 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) Localized tissue (HCC) Other specified local infections of the skin and subcutaneous tissue WV DEBRIDEMENT SUBCUTANEOUS TISSUE EA ADDL 20 SQ CM Routine 09/25/2025 1:50 PM EST 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) Localized tissue (HCC) Other specified local infections of the skin and subcutaneous tissue WV DEBRIDEMENT SUBCUTANEOUS TISSUE EA ADDL 20 SQ CM Routine 09/25/2025 1:50 PM EST 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) Localized tissue (HCC) Other specified local infections of the skin and subcutaneous tissue WV DEBRIDEMENT SUBCUTANEOUS TISSUE EA ADDL 20 SQ CM Routine 09/25/2025 1:50 PM EST 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) Localized tissue (HCC) Other specified local infections of the skin and subcutaneous tissue WV DEBRIDEMENT SUBCUTANEOUS TISSUE EA ADDL 20 SQ CM Routine 09/25/2025 1:50 PM EST 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) Localized tissue (HCC) Other specified local infections of the skin and subcutaneous tissue WV DEBRIDEMENT SUBCUTANEOUS TISSUE EA ADDL 20 SQ CM Routine 09/25/2025 1:50 PM EST 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) Localized tissue (HCC) Other specified local infections of the skin and subcutaneous tissue WV DEBRIDEMENT SUBCUTANEOUS TISSUE 1ST 20 SQ CM/< Routine 09/25/2025 1:50 PM EST 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) Localized tissue (HCC) Other specified local infections of the skin and subcutaneous tissue WV DEBRIDEMENT SUBCUTANEOUS TISSUE EA ADDL 20 SQ CM Routine 09/18/2025 9:30 AM EST 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) Localized tissue (HCC) Other specified local infections of the skin and subcutaneous tissue WV DEBRIDEMENT SUBCUTANEOUS TISSUE EA ADDL 20 SQ CM Routine 09/18/2025 9:30 AM EST 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) Localized tissue (HCC) Other specified local infections of the skin and subcutaneous tissue WV DEBRIDEMENT SUBCUTANEOUS TISSUE EA ADDL 20 SQ CM Routine 09/18/2025 9:30 AM EST 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) Localized tissue (HCC) Other specified local infections of the skin and subcutaneous tissue WV DEBRIDEMENT SUBCUTANEOUS TISSUE EA ADDL 20 SQ CM Routine 09/18/2025 9:30 AM EST 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) Localized tissue (HCC) Other specified local infections of the skin and subcutaneous tissue WV DEBRIDEMENT SUBCUTANEOUS TISSUE EA ADDL 20 SQ CM Routine 09/18/2025 9:30 AM EST 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) Localized tissue (HCC) Other specified local infections of the skin and subcutaneous tissue WV DEBRIDEMENT SUBCUTANEOUS TISSUE EA ADDL 20 SQ CM Routine 09/18/2025 9:30 AM EST 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) Localized tissue (HCC) Other specified local infections of the skin and subcutaneous tissue WV DEBRIDEMENT SUBCUTANEOUS TISSUE EA ADDL 20 SQ CM Routine 09/18/2025 9:30 AM EST 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) Localized tissue (HCC) Other specified local infections of the skin and subcutaneous tissue WV DEBRIDEMENT SUBCUTANEOUS TISSUE EA ADDL 20 SQ CM Routine 09/18/2025 9:30 AM EST 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) Localized tissue (HCC) Other specified local infections of the skin and subcutaneous tissue WV DEBRIDEMENT SUBCUTANEOUS TISSUE EA ADDL 20 SQ CM Routine 09/18/2025 9:30 AM EST 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) Localized tissue (HCC) Other specified local infections of the skin and subcutaneous tissue WV DEBRIDEMENT SUBCUTANEOUS TISSUE 1ST 20 SQ CM/< Routine 09/18/2025 9:30 AM EST 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) Localized tissue (HCC) Other specified local infections of the skin and subcutaneous tissue WV DEBRIDEMENT SUBCUTANEOUS TISSUE EA ADDL 20 SQ CM Routine 09/11/2025 3:20 PM EST 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) Localized tissue (HCC) Other specified local infections of the skin and subcutaneous tissue WV DEBRIDEMENT SUBCUTANEOUS TISSUE EA ADDL 20 SQ CM Routine 09/11/2025 3:20 PM EST 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) Localized tissue (HCC) Other specified local infections of the skin and subcutaneous tissue WV DEBRIDEMENT SUBCUTANEOUS TISSUE EA ADDL 20 SQ CM Routine 09/11/2025 3:20 PM EST 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) Localized tissue (HCC) Other specified local infections of the skin and subcutaneous tissue WV DEBRIDEMENT SUBCUTANEOUS TISSUE EA ADDL 20 SQ CM Routine 09/11/2025 3:20 PM EST 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) Localized tissue (HCC) Other specified local infections of the skin and subcutaneous tissue WV DEBRIDEMENT SUBCUTANEOUS TISSUE EA ADDL 20 SQ CM Routine 09/11/2025 3:20 PM EST 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) Localized tissue (HCC) Other specified local infections of the skin and subcutaneous tissue WV DEBRIDEMENT SUBCUTANEOUS TISSUE EA ADDL 20 SQ CM Routine 09/11/2025 3:20 PM EST 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) Localized tissue (HCC) Other specified local infections of the skin and subcutaneous tissue WV DEBRIDEMENT SUBCUTANEOUS TISSUE EA ADDL 20 SQ CM Routine 09/11/2025 3:20 PM EST 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) Localized tissue (HCC) Other specified local infections of the skin and subcutaneous tissue WV DEBRIDEMENT SUBCUTANEOUS TISSUE EA ADDL 20 SQ CM Routine 09/11/2025 3:20 PM EST 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) Localized tissue (HCC) Other specified local infections of the skin and subcutaneous tissue WV DEBRIDEMENT SUBCUTANEOUS TISSUE EA ADDL 20 SQ CM Routine 09/11/2025 3:20 PM EST 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) Localized tissue (HCC) Other specified local infections of the skin and subcutaneous tissue WV DEBRIDEMENT SUBCUTANEOUS TISSUE EA ADDL 20 SQ CM Routine 09/11/2025 3:20 PM EST 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) Localized tissue (HCC) Other specified local infections of the skin and subcutaneous tissue WV DEBRIDEMENT SUBCUTANEOUS TISSUE EA ADDL 20 SQ CM Routine 09/11/2025 3:20 PM EST 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) Localized tissue (HCC) Other specified local infections of the skin and subcutaneous tissue WV DEBRIDEMENT SUBCUTANEOUS TISSUE 1ST 20 SQ CM/< Routine 09/11/2025 3:20 PM EST 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) Localized tissue (HCC) Other specified local infections of the skin and subcutaneous tissue WV DEBRIDEMENT SUBCUTANEOUS TISSUE EA ADDL 20 SQ CM Routine 09/04/2025 10:40 AM EDT 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) Localized tissue (HCC) Other specified local infections of the skin and subcutaneous tissue WV DEBRIDEMENT SUBCUTANEOUS TISSUE EA ADDL 20 SQ CM Routine 09/04/2025 10:40 AM EDT 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) Localized tissue (HCC) Other specified local infections of the skin and subcutaneous tissue WV DEBRIDEMENT SUBCUTANEOUS TISSUE EA ADDL 20 SQ CM Routine 09/04/2025 10:40 AM EDT 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) Localized tissue (HCC) Other specified local infections of the skin and subcutaneous tissue WV DEBRIDEMENT SUBCUTANEOUS TISSUE EA ADDL 20 SQ CM Routine 09/04/2025 10:40 AM EDT 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) Localized tissue (HCC) Other specified local infections of the skin and subcutaneous tissue WV DEBRIDEMENT SUBCUTANEOUS TISSUE EA ADDL 20 SQ CM Routine 09/04/2025 10:40 AM EDT 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) Localized tissue (HCC) Other specified local infections of the skin and subcutaneous tissue WV DEBRIDEMENT SUBCUTANEOUS TISSUE 1ST 20 SQ CM/< Routine 09/04/2025 10:40 AM EDT 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) Localized tissue (HCC) Other specified local infections of the skin and subcutaneous tissue WOUND TREATMENT Routine 08/30/2025 5:21 PM EDT 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) WV DEBRIDEMENT SUBCUTANEOUS TISSUE EA ADDL 20 SQ CM Routine 08/28/2025 9:00 AM EDT 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) Localized tissue (HCC) Other specified local infections of the skin and subcutaneous tissue WV DEBRIDEMENT SUBCUTANEOUS TISSUE EA ADDL 20 SQ CM Routine 08/28/2025 9:00 AM EDT 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) Localized tissue (HCC) Other specified local infections of the skin and subcutaneous tissue WV DEBRIDEMENT SUBCUTANEOUS TISSUE EA ADDL 20 SQ CM Routine 08/28/2025 9:00 AM EDT 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) Localized tissue (HCC) Other specified local infections of the skin and subcutaneous tissue WV DEBRIDEMENT SUBCUTANEOUS TISSUE EA ADDL 20 SQ CM Routine 08/28/2025 9:00 AM EDT 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) Localized tissue (HCC) Other specified local infections of the skin and subcutaneous tissue WV DEBRIDEMENT SUBCUTANEOUS TISSUE EA ADDL 20 SQ CM Routine 08/28/2025 9:00 AM EDT 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) Localized tissue (HCC) Other specified local infections of the skin and subcutaneous tissue WV DEBRIDEMENT SUBCUTANEOUS TISSUE 1ST 20 SQ CM/< Routine 08/28/2025 9:00 AM EDT 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) Localized tissue (HCC) Other specified local infections of the skin and subcutaneous tissue WV DEBRIDEMENT SUBCUTANEOUS TISSUE EA ADDL 20 SQ CM Routine 08/19/2025 3:40 PM EDT 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) Localized tissue (HCC) Other specified local infections of the skin and subcutaneous tissue WV DEBRIDEMENT SUBCUTANEOUS TISSUE EA ADDL 20 SQ CM Routine 08/19/2025 3:40 PM EDT 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) Localized tissue (HCC) Other specified local infections of the skin and subcutaneous tissue WV DEBRIDEMENT SUBCUTANEOUS TISSUE EA ADDL 20 SQ CM Routine 08/19/2025 3:40 PM EDT 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) Localized tissue (HCC) Other specified local infections of the skin and subcutaneous tissue W[place] DEBRIDEMENT SUBCUTANEOUS TISSUE EA ADDL 20 SQ CM Routine 08/19/2025 3:40 PM EDT 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) Localized tissue (HCC) Other specified local infections of the skin and subcutaneous tissue W[place] DEBRIDEMENT SUBCUTANEOUS TISSUE EA ADDL 20 SQ CM Routine 08/19/2025 3:40 PM EDT 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) Localized tissue (HCC) Other specified local infections of the skin and subcutaneous tissue W[place] DEBRIDEMENT SUBCUTANEOUS TISSUE EA ADDL 20 SQ CM Routine 08/19/2025 3:40 PM EDT 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) Localized tissue (HCC) Other specified local infections of the skin and subcutaneous tissue W[place] DEBRIDEMENT SUBCUTANEOUS TISSUE EA ADDL 20 SQ CM Routine 08/19/2025 3:40 PM EDT 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) Localized tissue (HCC) Other specified local infections of the skin and subcutaneous tissue W[place] DEBRIDEMENT SUBCUTANEOUS TISSUE EA ADDL 20 SQ CM Routine 08/19/2025 3:40 PM EDT 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) Localized tissue (HCC) Other specified local infections of the skin and subcutaneous tissue W[place] DEBRIDEMENT SUBCUTANEOUS TISSUE EA ADDL 20 SQ CM Routine 08/19/2025 3:40 PM EDT 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) Localized tissue (HCC) Other specified local infections of the skin and subcutaneous tissue W[place] DEBRIDEMENT SUBCUTANEOUS TISSUE 1ST 20 SQ CM/< Routine 08/19/2025 3:40 PM EDT 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) Localized tissue (HCC) Other specified local infections of the skin and subcutaneous tissue WOUND CULTURE + GRAM STAIN Routine 08/14/2025 4:51 PM EDT Other specified local infections of the skin and subcutaneous tissue W[place] DEBRIDEMENT SUBCUTANEOUS TISSUE EA ADDL 20 SQ CM Routine 08/12/2025 11:00 AM EDT 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) Localized tissue (HCC) Other specified local infections of the skin and subcutaneous tissue W[place] DEBRIDEMENT SUBCUTANEOUS TISSUE EA ADDL 20 SQ CM Routine 08/12/2025 11:00 AM EDT 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) Localized tissue (HCC) Other specified local infections of the skin and subcutaneous tissue W[place] DEBRIDEMENT SUBCUTANEOUS TISSUE EA ADDL 20 SQ CM Routine 08/12/2025 11:00 AM EDT 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) Localized tissue (HCC) Other specified local infections of the skin and subcutaneous tissue W[place] DEBRIDEMENT SUBCUTANEOUS TISSUE EA ADDL 20 SQ CM Routine 08/12/2025 11:00 AM EDT 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) Localized tissue (HCC) Other specified local infections of the skin and subcutaneous tissue W[place] DEBRIDEMENT SUBCUTANEOUS TISSUE EA ADDL 20 SQ CM Routine 08/12/2025 11:00 AM EDT 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) Localized tissue (HCC) Other specified local infections of the skin and subcutaneous tissue W[place] DEBRIDEMENT SUBCUTANEOUS TISSUE EA ADDL 20 SQ CM Routine 08/12/2025 11:00 AM EDT 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) Localized tissue (HCC) Other specified local infections of the skin and subcutaneous tissue W[place] DEBRIDEMENT SUBCUTANEOUS TISSUE EA ADDL 20 SQ CM Routine 08/12/2025 11:00 AM EDT 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) Localized tissue (HCC) Other specified local infections of the skin and subcutaneous tissue W[place] DEBRIDEMENT SUBCUTANEOUS TISSUE EA ADDL 20 SQ CM Routine 08/12/2025 11:00 AM EDT 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) Localized tissue (HCC) Other specified local infections of the skin and subcutaneous tissue W[place] DEBRIDEMENT SUBCUTANEOUS TISSUE EA ADDL 20 SQ CM Routine 08/12/2025 11:00 AM EDT 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) Localized tissue (HCC) Other specified local infections of the skin and subcutaneous tissue W[place] DEBRIDEMENT SUBCUTANEOUS TISSUE EA ADDL 20 SQ CM Routine 08/12/2025 11:00 AM EDT 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) Localized tissue (HCC) Other specified local infections of the skin and subcutaneous tissue W[place] DEBRIDEMENT SUBCUTANEOUS TISSUE EA ADDL 20 SQ CM Routine 08/12/2025 11:00 AM EDT 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) Localized tissue (HCC) Other specified local infections of the skin and subcutaneous tissue WV DEBRIDEMENT SUBCUTANEOUS TISSUE 1ST 20 SQ CM/< Routine 08/12/2025 11:00 AM EDT 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) Localized tissue (HCC) Other specified local infections of the skin and subcutaneous tissue W[place] DEBRIDEMENT SUBCUTANEOUS TISSUE EA ADDL 20 SQ CM Routine 08/05/2025 1:10 PM EDT 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) Localized tissue (HCC) Other specified local infections of the skin and subcutaneous tissue W[place] DEBRIDEMENT SUBCUTANEOUS TISSUE EA ADDL 20 SQ CM Routine 08/05/2025 1:10 PM EDT 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) Localized tissue (HCC) Other specified local infections of the skin and subcutaneous tissue W[place] DEBRIDEMENT SUBCUTANEOUS TISSUE EA ADDL 20 SQ CM Routine 08/05/2025 1:10 PM EDT 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) Localized tissue (HCC) Other specified local infections of the skin and subcutaneous tissue W[place] DEBRIDEMENT SUBCUTANEOUS TISSUE EA ADDL 20 SQ CM Routine 08/05/2025 1:10 PM EDT 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) Localized tissue (HCC) Other specified local infections of the skin and subcutaneous tissue W[place] DEBRIDEMENT SUBCUTANEOUS TISSUE EA ADDL 20 SQ CM Routine 08/05/2025 1:10 PM EDT 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) Localized tissue (HCC) Other specified local infections of the skin and subcutaneous tissue W[place] DEBRIDEMENT SUBCUTANEOUS TISSUE EA ADDL 20 SQ CM Routine 08/05/2025 1:10 PM EDT 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) Localized tissue (HCC) Other specified local infections of the skin and subcutaneous tissue W[place] DEBRIDEMENT SUBCUTANEOUS TISSUE EA ADDL 20 SQ CM Routine 08/05/2025 1:10 PM EDT 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) Localized tissue (HCC) Other specified local infections of the skin and subcutaneous tissue W[place] DEBRIDEMENT SUBCUTANEOUS TISSUE EA ADDL 20 SQ CM Routine 08/05/2025 1:10 PM EDT 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) Localized tissue (HCC) Other specified local infections of the skin and subcutaneous tissue W[place] DEBRIDEMENT SUBCUTANEOUS TISSUE EA ADDL 20 SQ CM Routine 08/05/2025 1:10 PM EDT 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) Localized tissue (HCC) Other specified local infections of the skin and subcutaneous tissue W[place] DEBRIDEMENT SUBCUTANEOUS TISSUE EA ADDL 20 SQ CM Routine 08/05/2025 1:10 PM EDT 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) Localized tissue (HCC) Other specified local infections of the skin and subcutaneous tissue W[place] DEBRIDEMENT SUBCUTANEOUS TISSUE EA ADDL 20 SQ CM Routine 08/05/2025 1:10 PM EDT 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) Localized tissue (HCC) Other specified local infections of the skin and subcutaneous tissue W[place] DEBRIDEMENT SUBCUTANEOUS TISSUE EA ADDL 20 SQ CM Routine 08/05/2025 1:10 PM EDT 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) Localized tissue (HCC) Other specified local infections of the skin and subcutaneous tissue WV DEBRIDEMENT SUBCUTANEOUS TISSUE 1ST 20 SQ CM/< Routine 08/05/2025 1:10 PM EDT 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) Localized tissue (HCC) Other specified local infections of the skin and subcutaneous tissue from Last 3 Months Results * W[place] DEBRIDEMENT SUBCUTANEOUS TISSUE 1ST 20 SQ CM/<, [place] DEBRIDEMENT SUBCUTANEOUS TISSUE EA ADDL 20SQ CM, [place] DEBRIDEMENT SUBCUTANEOUS TISSUE EA ADDL 20 SQ CM, [place] DEBRIDEMENT SUBCUTANEOUS TISSUE EA ADDL 20 SQ CM, [place] DEBRIDEMENT SUBCUTANEOUS TISSUE EA ADDL 20 SQ CM, [place] DEBRIDEMENT SUBCUTANEOUS TISSUE EA ADDL 20 SQ CM, [place] DEBRIDEMENT SUBCUTANEOUS TISSUE EA ADDL 20 SQ CM, W[place] DEBRIDEMENT SUBCUTANEOUSTISSUE EA ADDL 20 SQ CM, [place] DEBRIDEMENT SUBCUTANEOUS TISSUE EA ADDL 20 SQ CM, [place] DEBRIDEMENT SUBCUTANEOUS TISSUE EA ADDL 20 SQ CM, [place] DEBRIDEMENT SUBCUTANEOUS TISSUE EA ADDL 20 SQ CM, [place] DEBRIDEMENT S UBCUTANEOUS TISSUE EA ADDL 20 SQ CM, [place] DEBRIDEMENT SUBCUTANEOUS TISSUE EA ADDL 20 SQ [...] provider verified the correct patient, procedure, equipment, clinical support nurse, and site/side marked as required. Debridement Details [...] MD PROCEDURE/MINOR SURGICAL ORDERABLES Final Result * W[place] DEBRIDEMENT SUBCUTANEOUS TISSUE 1ST 20 SQ CM/<, [place] DEBRIDEMENT SUBCUTANEOUS TISSUE EA ADDL 20SQ CM, [place] DEBRIDEMENT SUBCUTANEOUS TISSUE EA ADDL 20 SQ CM, [place] DEBRIDEMENT SUBCUTANEOUS TISSUE EA ADDL 20 SQ CM, [place] DEBRIDEMENT SUBCUTANEOUS TISSUE EA ADDL 20 SQ CM, [place] DEBRIDEMENT SUBCUTANEOUS TISSUE EA ADDL 20 SQ CM, [place] DEBRIDEMENT SUBCUTANEOUS TISSUE EA ADDL 20 SQ CM, [place] DEBRIDEMENT SUBCUTANEOUSTISSUE EA ADDL 20 SQ CM, [place] DEBRIDEMENT SUBCUTANEOUS TISSUE EA ADDL 20 SQ CM, [place] DEBRIDEMENT SUBCUTANEOUS TISSUE EA ADDL 20 SQ [...] provider verified the correct patient, procedure, equipment, clinical support nurse, and site/side marked as required. Debridement Details [...] MD PROCEDURE/MINOR SURGICAL ORDERABLES Final Result * [place] DEBRIDEMENT SUBCUTANEOUS TISSUE 1ST 20 SQ CM/<, [place] DEBRIDEMENT SUBCUTANEOUS TISSUE EA ADDL 20SQ CM, [place] DEBRIDEMENT SUBCUTANEOUS TISSUE EA ADDL 20 SQ CM, [place] DEBRIDEMENT SUBCUTANEOUS TISSUE EA ADDL 20 SQ CM, [place] DEBRIDEMENT SUBCUTANEOUS TISSUE EA ADDL 20 SQ CM, [place] DEBRIDEMENT SUBCUTANEOUS TISSUE EA ADDL 20 SQ CM, [place] DEBRIDEMENT SUBCUTANEOUS TISSUE EA ADDL 20 SQ CM, [place] DEBRIDEMENT SUBCUTANEOUSTISSUE EA ADDL 20 SQ CM, [place] DEBRIDEMENT SUBCUTANEOUS TISSUE EA ADDL 20 SQ CM, [place] DEBRIDEMENT SUBCUTANEOUS TISSUE EA ADDL 20 SQ CM, [place] DEBRIDEMENT SUBCUTANEOUS TISSUE EA ADDL 20 SQ CM, [place] DEBRIDEMENT S UBCUTANEOUS TISSUE EA ADDL 20 [...] provider verified the correct patient, procedure, equipment, clinical support nurse, and site/side marked as required. Debridement Details [...] MD PROCEDURE/MINOR SURGICAL ORDERABLES Final Result * [place] DEBRIDEMENT SUBCUTANEOUS TISSUE 1ST 20 SQ CM/<, [place] DEBRIDEMENT SUBCUTANEOUS TISSUE EA ADDL 20SQ CM, [place] DEBRIDEMENT SUBCUTANEOUS TISSUE EA ADDL 20 SQ CM, [place] DEBRIDEMENT SUBCUTANEOUS TISSUE EA ADDL 20 SQ CM, [place] DEBRIDEMENT SUBCUTANEOUS TISSUE EA ADDL 20 SQ CM, [place] DEBRIDEMENT SUBCUTANEOUS TISSUE EA ADDL 20 SQ [...] provider verified the correct patient, procedure, equipment, clinical support nurse, and site/side marked as required. Debridement Details [...] MD PROCEDURE/MINOR SURGICAL ORDERABLES Final Result * Wound Treatment (08/30/2025 5:21 PM EDT) us Sukhdev Bazan Jr., MD NURSING PATHWAYS ORDERABL ES Final Result * [place] DEBRIDEMENT SUBCUTANEOUS TISSUE 1ST 20 SQ CM/<, [place] DEBRIDEMENT SUBCUTANEOUS TISSUE EA ADDL 20SQ CM, [place] DEBRIDEMENT SUBCUTANEOUS TISSUE EA ADDL 20 SQ CM, [place] DEBRIDEMENT SUBCUTANEOUS TISSUE EA ADDL 20 SQ CM, [place] DEBRIDEMENT SUBCUTANEOUS TISSUE EA ADDL 20 SQ CM, [place] DEBRIDEMENT SUBCUTANEOUS TISSUE EA ADDL 20 SQ CM (08/28/2025 9:00 AM EDT) Narrative Sukhdev Bazan Jr., MD - 08/28/2025 9:00 AM EDT [...] provider verified the correct patient, procedure, equipment, clinical support nurse, and site/side marked as required. Debridement Details [...] MD PROCEDURE/MINOR SURGICAL ORDERABLES Final Result * [place] DEBRIDEMENT SUBCUTANEOUS TISSUE 1ST 20 SQ CM/<, [place] DEBRIDEMENT SUBCUTANEOUS TISSUE EA ADDL 20SQ CM, [place] DEBRIDEMENT SUBCUTANEOUS TISSUE EA ADDL 20 SQ CM, [place] DEBRIDEMENT SUBCUTANEOUS TISSUE EA ADDL 20 SQ CM, [place] DEBRIDEMENT SUBCUTANEOUS TISSUE EA ADDL 20 SQ CM, [place] DEBRIDEMENT SUBCUTANEOUS TISSUE EA ADDL 20 SQ CM, [place] DEBRIDEMENT SUBCUTANEOUS TISSUE EA ADDL 20 SQ CM, [place] DEBRIDEMENT SUBCUTANEOUSTISSUE EA ADDL 20 SQ CM, [place] DEBRIDEMENT SUBCUTANEOUS TISSUE EA ADDL 20 SQ CM, [place] DEBRIDEMENT SUBCUTANEOUS TISSUE EA ADDL 20 SQ [...] provider verified the correct patient, procedure, equipment, clinical support nurse, and site/side marked as required. Debridement Details [...] Growth Streptococcus agalactiae(A) 08/17/2025 2:03 PM EDT [facility] Result Light Growth Corynebacterium species(A) 08/17/2025 2:03 PM EDT [facility] Result Light Growth Corynebacterium species(A) 08/17/2025 2:03 PM EDT [facility] Comment:Second [place] Type Gram Stain Result No organisms seen 08/17/2025 2:03 PM EDT [facility] Gram Stain Result Few WBCs 08/17/2025 2:03 PM EDT [facility] Wound INGUINAL REGION STRUCTURE / Unknown 08/14/2025 4:51 PM EDT 08/14/2025 5:42 PM EDT Narrative [facility] - 08/17/2025 2:03 PM EDT Mixed growth suggestive of colonization or indigenous silvestre us Sukhdev Bazan Jr., MD MICROBIOLOGY - GENERAL OR DERABLES Final Result [facility] [address] [place] [address], [facility] [phone] * [place] DEBRIDEMENT SUBCUTANEOUS TISSUE 1ST 20 SQ CM/<, [place] DEBRIDEMENT SUBCUTANEOUS TISSUE EA ADDL 20SQ CM, [place] DEBRIDEMENT SUBCUTANEOUS TISSUE EA ADDL 20 SQ CM, [place] DEBRIDEMENT SUBCUTANEOUS TISSUE EA ADDL 20 SQ CM, [place] DEBRIDEMENT SUBCUTANEOUS TISSUE EA ADDL 20 SQ CM, [place] DEBRIDEMENT SUBCUTANEOUS TISSUE EA ADDL 20 SQ CM, [place] DEBRIDEMENT SUBCUTANEOUS TISSUE EA ADDL 20 SQ CM, [place] DEBRIDEMENT SUBCUTANEOUSTISSUE EA ADDL 20 SQ CM, [place] DEBRIDEMENT SUBCUTANEOUS TISSUE EA ADDL 20 SQ CM, [place] DEBRIDEMENT SUBCUTANEOUS TISSUE EA ADDL 20 SQ CM, [place] DEBRIDEMENT SUBCUTANEOUS TISSUE EA ADDL 20 SQ CM, [place] DEBRIDEMENT S UBCUTANEOUS TISSUE EA ADDL 20 [...] provider verified the correct patient, procedure, equipment, clinical support nurse, and site/side marked as required. Debridement Details [...] MD PROCEDURE/MINOR SURGICAL ORDERABLES Final Result * [place] DEBRIDEMENT SUBCUTANEOUS TISSUE 1ST 20 SQ CM/<, [place] DEBRIDEMENT SUBCUTANEOUS TISSUE EA ADDL 20SQ CM, [place] DEBRIDEMENT SUBCUTANEOUS TISSUE EA ADDL 20 SQ CM, [place] DEBRIDEMENT SUBCUTANEOUS TISSUE EA ADDL 20 SQ CM, [place] DEBRIDEMENT SUBCUTANEOUS TISSUE EA ADDL 20 SQ CM, [place] DEBRIDEMENT SUBCUTANEOUS TISSUE EA ADDL 20 SQ CM, [place] DEBRIDEMENT SUBCUTANEOUS TISSUE EA ADDL 20 SQ CM, [place] DEBRIDEMENT SUBCUTANEOUSTISSUE EA ADDL 20 SQ CM, [place] DEBRIDEMENT SUBCUTANEOUS TISSUE EA ADDL 20 SQ CM, [place] DEBRIDEMENT SUBCUTANEOUS TISSUE EA ADDL 20 SQ CM, [place] DEBRIDEMENT SUBCUTANEOUS TISSUE EA ADDL 20 SQ CM, [place] DEBRIDEMENT S UBCUTANEOUS TISSUE EA ADDL 20 SQ CM, [place] DEBRIDEMENT SUBCUTANEOUS TISSUE EA ADDL 20 SQ CM (08/05/2025 1:10 PM EDT) Sukhdev Cardoza Jr., MD - 08/05/2025 1:10 PM EDT Sukhdev Bazan Jr., MD 08/05/2025 6:32 PM Debridement Wound 08/05/25 Soft Tissue Necrosis Leg upper Anterior;Right;Medial Performed by: Suhkdev Bazan Jr., MD Authorized by: Sukhdev Bazan Jr., MD Consent Consent obtained? written Consent given by: patient Risks discussed? procedural risks discussed Immediately prior to the procedure a time out was called and the performing provider verified the correct patient, procedure, equipment, clinical support nurse, and site/side marked as required. 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
--- OUTSIDE RECORDS SUMMARY | 2025-09-26 21:02 | XMS_ITS | Referral Summary ---
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) (Primary Dx); Localized tissue (HCC); Other specified local infections of the skin and subcutaneous tissue; Diabetes mellitus with skin ulcer (HCC) 09/23/2025 2:15 PM EST Clinical Support [facility] [place] [address] [place] [phone] Sukhdev Bazan Jr., MD 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) 09/20/2025 10:45 AM EST Clinical Support [facility] [address] [phone] Sukhdev Bazan Jr., MD 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) 09/18/2025 Travel 09/18/2025 9:30 AM EST Office Visit [facility] [address] [place] [phone] Sukhdev Bazan Jr., MD 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) (Primary Dx); Localized tissue (HCC); Other specified local infections of the skin and subcutaneous tissue; Diabetes mellitus with skin ulcer (HCC) 09/16/2025 Travel 09/16/2025 4:00 PM EST Clinical Support [facility] [address] [phone] Sukhdev Bazan Jr., MD 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) 09/13/2025 Travel 09/13/2025 3:30 PM EST Clinical Support [facility] [address] [phone] Sukhdev Bazan Jr., MD 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) 09/11/2025 Travel 09/11/2025 3:20 PM EST Office Visit [address] [phone] Sukhdev Bazan Jr., MD 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) (Primary Dx); Localized tissue (HCC); Other specified local infections of the skin and subcutaneous tissue; Diabetes mellitus with skin ulcer (HCC) 09/09/2025 Travel 09/09/2025 4:00 PM EST Clinical Support [facility] [address] [phone] Sukhdev Bazan Jr., MD 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) 09/06/2025 Travel 09/06/2025 3:30 PM EDT Clinical Support [facility] [address] [phone] Sukhdev Bazan Jr., MD 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) 09/04/2025 Travel 09/04/2025 10:40 AM EDT Office Visit [facility] [address] [phone] Sukhdev Bazan Jr., MD 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) (Primary Dx); Localized tissue (HCC); Other specified local infections of the skin and subcutaneous tissue; Diabetes mellitus with skin ulcer (HCC); 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 08/30/2025 Travel 08/30/2025 4:00 PM EDT Clinical Support [facility] [address] [place] [phone] Sukhdev Bazan Jr., MD 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) 08/28/2025 Travel 08/28/2025 9:00 AM EDT Office Visit [facility] [place] [phone] Sukhdev Bazan Jr., MD 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) (Primary Dx); Localized tissue (HCC); Other specified local infections of the skin and subcutaneous tissue; Diabetes mellitus with skin ulcer (HCC) 08/27/2025 [place] [phone] Verito Guillermo, RN Appointment (See note) 08/26/2025 Travel 08/26/2025 9:00 AM EDT Clinical Support [place] [phone] Sukhdev Bazan Jr., MD 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) 08/23/2025 Telephone [facility] [place] [phone] Jodie Trivedi APRN Appointment 08/23/2025 3:30 PM EDT Clinical Support [facility] [address] [phone] Sukhdev Bazan Jr., MD 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) 08/21/2025 Travel 08/21/2025 3:30 PM EDT Clinical Support [facility] [address] [phone] Sukhdev Bazan Jr., MD 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) 08/19/2025 Travel 08/19/2025 3:40 PM EDT Office Visit [facility] [address] [place] [address] Sukhdev Bazan Jr., MD 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) (Primary Dx); Localized tissue (HCC); Other specified local infections of the skin and subcutaneous tissue; Diabetes mellitus with skin ulcer (HCC); 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 08/16/2025 Travel 08/16/2025 Telephone [facility] [address] [place] [phone] Sukhdev Bazan Jr., MD Appointment 08/16/2025 1:30 PM EDT Clinical Support [facility] 1 [place] [phone] Sukhdev Bazan Jr., MD 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) 08/14/2025 3:00 PM EDT Clinical Support [facility] 1 [place] [phone] Sukhdev Bazan Jr., MD Localized tissue (HCC) (Primary Dx); 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); Other specified local infections of the skin and subcutaneous tissue; Diabetes mellitus with skin ulcer (HCC); 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 08/12/2025 Travel 08/12/2025 11:00 AM EDT Office Visit [facility] [address] [place] [address] Sukhdev Bazan Jr., MD 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) (Primary Dx); Localized tissue (HCC); Other specified local infections of the skin and subcutaneous tissue; Diabetes mellitus with skin ulcer (HCC) 08/09/2025 Travel 08/09/2025 10:45 AM EDT Clinical Support [facility] 1 [place] [address] Sukhdev Bazan Jr., MD 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) 08/07/2025 Travel 08/07/2025 1:00 PM EDT Clinical Support [facility] 1 [place] [address] Sukhdev Bazan Jr., MD 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 4 Active glucosam-walter- icx4-Y-tkrx-florin sw (Osteo Bi-Flex Triple Strength) 750 mg-644 [...] including calling Suicide Hotline ( ) or 91. Follow up in three months with Psychologist/Counselor/SupportGroup/Psychiatrist [...] VACCINE MOD JAKE (SPIKEVAX) 12 YRS + (FGW442) 01/24/2024(Deferred: Patient Refused) Covid-19 Vaccine MRNA (PF) 1 8yr+ (Moderna)([id number]) 12/24/2022(Deferred: Patient Refused) Influenza Four-qiv Pf 01/24/2024(Deferre [...] Date Franko rded Speak language other than Colombian at home Not on file 12/23/2023 Want help with school or training Not on file 12/23/2023 Substance Use Answer Date Recorded Used prescription meds for non-medical reasons N ot on file 12/23/2023 Used illegal drugs past 12 months Not on file 12/23/2023 Comments Unknown Sex and Gender Information Value Date Recorded Sex Assigned at Not on file 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[employer] Gender Identity Not on file Sexual [...] Description 09/27/2025 10:45 AM EST Clinical Support [address] [phone] 09/30/2025 1:00 PM EST Clinical Support [address] [phone] 10/02/2025 1:00 PM EST Office Visit [address] [phone] Sukhdev Bazan Jr., MD [address] [place] [phone] 10/07/2025 10:15 AM EST Clinical Support [address] [phone] 10/09/2025 2:20 PM EST Office Visit [address] [phone] Sukhdev Bazan Jr., MD [address] [place] [phone] 10/11/2025 10:15 AM EST Clinical Support [facility] [address] [place] [phone] Procedures Procedure Name Priority Date/Time Associated Diagnosis Comments CT DEBRIDEMENT SUBCUTANEOUS TISSUE EA ADDL 20 SQ CM Routine 09/25/2025 1:50 PM EST 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) Localized tissue (HCC) Other specified local infections of the skin and subcutaneous tissue CT DEBRIDEMENT SUBCUTANEOUS TISSUE EA ADDL 20 SQ CM Routine 09/25/2025 1:50 PM EST 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) Localized tissue (HCC) Other specified local infections of the skin and subcutaneous tissue CT DEBRIDEMENT SUBCUTANEOUS TISSUE EA ADDL 20 SQ CM Routine 09/25/2025 1:50 PM EST 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) Localized tissue (HCC) Other specified local infections of the skin and subcutaneous tissue CT DEBRIDEMENT SUBCUTANEOUS TISSUE EA ADDL 20 SQ CM Routine 09/25/2025 1:50 PM EST 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) Localized tissue (HCC) Other specified local infections of the skin and subcutaneous tissue CT DEBRIDEMENT SUBCUTANEOUS TISSUE EA ADDL 20 SQ CM Routine 09/25/2025 1:50 PM EST 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) Localized tissue (HCC) Other specified local infections of the skin and subcutaneous tissue CT DEBRIDEMENT SUBCUTANEOUS TISSUE EA ADDL 20 SQ CM Routine 09/25/2025 1:50 PM EST 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) Localized tissue (HCC) Other specified local infections of the skin and subcutaneous tissue CT DEBRIDEMENT SUBCUTANEOUS TISSUE EA ADDL 20 SQ CM Routine 09/25/2025 1:50 PM EST 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) Localized tissue (HCC) Other specified local infections of the skin and subcutaneous tissue CT DEBRIDEMENT SUBCUTANEOUS TISSUE EA ADDL 20 SQ CM Routine 09/25/2025 1:50 PM EST 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) Localized tissue (HCC) Other specified local infections of the skin and subcutaneous tissue CT DEBRIDEMENT SUBCUTANEOUS TISSUE EA ADDL 20 SQ CM Routine 09/25/2025 1:50 PM EST 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) Localized tissue (HCC) Other specified local infections of the skin and subcutaneous tissue CT DEBRIDEMENT SUBCUTANEOUS TISSUE EA ADDL 20 SQ CM Routine 09/25/2025 1:50 PM EST 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) Localized tissue (HCC) Other specified local infections of the skin and subcutaneous tissue CT DEBRIDEMENT SUBCUTANEOUS TISSUE EA ADDL 20 SQ CM Routine 09/25/2025 1:50 PM EST 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) Localized tissue (HCC) Other specified local infections of the skin and subcutaneous tissue CT DEBRIDEMENT SUBCUTANEOUS TISSUE EA ADDL 20 SQ CM Routine 09/25/2025 1:50 PM EST 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) Localized tissue (HCC) Other specified local infections of the skin and subcutaneous tissue CT DEBRIDEMENT SUBCUTANEOUS TISSUE 1ST 20 SQ CM/< Routine 09/25/2025 1:50 PM EST 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) Localized tissue (HCC) Other specified local infections of the skin and subcutaneous tissue CT DEBRIDEMENT SUBCUTANEOUS TISSUE EA ADDL 20 SQ CM Routine 09/18/2025 9:30 AM EST 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) Localized tissue (HCC) Other specified local infections of the skin and subcutaneous tissue CT DEBRIDEMENT SUBCUTANEOUS TISSUE EA ADDL 20 SQ CM Routine 09/18/2025 9:30 AM EST 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) Localized tissue (HCC) Other specified local infections of the skin and subcutaneous tissue CT DEBRIDEMENT SUBCUTANEOUS TISSUE EA ADDL 20 SQ CM Routine 09/18/2025 9:30 AM EST 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) Localized tissue (HCC) Other specified local infections of the skin and subcutaneous tissue CT DEBRIDEMENT SUBCUTANEOUS TISSUE EA ADDL 20 SQ CM Routine 09/18/2025 9:30 AM EST 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) Localized tissue (HCC) Other specified local infections of the skin and subcutaneous tissue CT DEBRIDEMENT SUBCUTANEOUS TISSUE EA ADDL 20 SQ CM Routine 09/18/2025 9:30 AM EST 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) Localized tissue (HCC) Other specified local infections of the skin and subcutaneous tissue CT DEBRIDEMENT SUBCUTANEOUS TISSUE EA ADDL 20 SQ CM Routine 09/18/2025 9:30 AM EST 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) Localized tissue (HCC) Other specified local infections of the skin and subcutaneous tissue CT DEBRIDEMENT SUBCUTANEOUS TISSUE EA ADDL 20 SQ CM Routine 09/18/2025 9:30 AM EST 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) Localized tissue (HCC) Other specified local infections of the skin and subcutaneous tissue CT DEBRIDEMENT SUBCUTANEOUS TISSUE EA ADDL 20 SQ CM Routine 09/18/2025 9:30 AM EST 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) Localized tissue (HCC) Other specified local infections of the skin and subcutaneous tissue CT DEBRIDEMENT SUBCUTANEOUS TISSUE EA ADDL 20 SQ CM Routine 09/18/2025 9:30 AM EST 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) Localized tissue (HCC) Other specified local infections of the skin and subcutaneous tissue CT DEBRIDEMENT SUBCUTANEOUS TISSUE 1ST 20 SQ CM/< Routine 09/18/2025 9:30 AM EST 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) Localized tissue (HCC) Other specified local infections of the skin and subcutaneous tissue CT DEBRIDEMENT SUBCUTANEOUS TISSUE EA ADDL 20 SQ CM Routine 09/11/2025 3:20 PM EST 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) Localized tissue (HCC) Other specified local infections of the skin and subcutaneous tissue CT DEBRIDEMENT SUBCUTANEOUS TISSUE EA ADDL 20 SQ CM Routine 09/11/2025 3:20 PM EST 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) Localized tissue (HCC) Other specified local infections of the skin and subcutaneous tissue CT DEBRIDEMENT SUBCUTANEOUS TISSUE EA ADDL 20 SQ CM Routine 09/11/2025 3:20 PM EST 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) Localized tissue (HCC) Other specified local infections of the skin and subcutaneous tissue CT DEBRIDEMENT SUBCUTANEOUS TISSUE EA ADDL 20 SQ CM Routine 09/11/2025 3:20 PM EST 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) Localized tissue (HCC) Other specified local infections of the skin and subcutaneous tissue CT DEBRIDEMENT SUBCUTANEOUS TISSUE EA ADDL 20 SQ CM Routine 09/11/2025 3:20 PM EST 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) Localized tissue (HCC) Other specified local infections of the skin and subcutaneous tissue CT DEBRIDEMENT SUBCUTANEOUS TISSUE EA ADDL 20 SQ CM Routine 09/11/2025 3:20 PM EST 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) Localized tissue (HCC) Other specified local infections of the skin and subcutaneous tissue CT DEBRIDEMENT SUBCUTANEOUS TISSUE EA ADDL 20 SQ CM Routine 09/11/2025 3:20 PM EST 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) Localized tissue (HCC) Other specified local infections of the skin and subcutaneous tissue CT DEBRIDEMENT SUBCUTANEOUS TISSUE EA ADDL 20 SQ CM Routine 09/11/2025 3:20 PM EST 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) Localized tissue (HCC) Other specified local infections of the skin and subcutaneous tissue CT DEBRIDEMENT SUBCUTANEOUS TISSUE EA ADDL 20 SQ CM Routine 09/11/2025 3:20 PM EST 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) Localized tissue (HCC) Other specified local infections of the skin and subcutaneous tissue CT DEBRIDEMENT SUBCUTANEOUS TISSUE EA ADDL 20 SQ CM Routine 09/11/2025 3:20 PM EST 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) Localized tissue (HCC) Other specified local infections of the skin and subcutaneous tissue CT DEBRIDEMENT SUBCUTANEOUS TISSUE EA ADDL 20 SQ CM Routine 09/11/2025 3:20 PM EST 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) Localized tissue (HCC) Other specified local infections of the skin and subcutaneous tissue CT DEBRIDEMENT SUBCUTANEOUS TISSUE 1ST 20 SQ CM/< Routine 09/11/2025 3:20 PM EST 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) Localized tissue (HCC) Other specified local infections of the skin and subcutaneous tissue CT DEBRIDEMENT SUBCUTANEOUS TISSUE EA ADDL 20 SQ CM Routine 09/04/2025 10:40 AM EDT 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) Localized tissue (HCC) Other specified local infections of the skin and subcutaneous tissue CT DEBRIDEMENT SUBCUTANEOUS TISSUE EA ADDL 20 SQ CM Routine 09/04/2025 10:40 AM EDT 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) Localized tissue (HCC) Other specified local infections of the skin and subcutaneous tissue CT DEBRIDEMENT SUBCUTANEOUS TISSUE EA ADDL 20 SQ CM Routine 09/04/2025 10:40 AM EDT 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) Localized tissue (HCC) Other specified local infections of the skin and subcutaneous tissue CT DEBRIDEMENT SUBCUTANEOUS TISSUE EA ADDL 20 SQ CM Routine 09/04/2025 10:40 AM EDT 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) Localized tissue (HCC) Other specified local infections of the skin and subcutaneous tissue CT DEBRIDEMENT SUBCUTANEOUS TISSUE EA ADDL 20 SQ CM Routine 09/04/2025 10:40 AM EDT 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) Localized tissue (HCC) Other specified local infections of the skin and subcutaneous tissue CT DEBRIDEMENT SUBCUTANEOUS TISSUE 1ST 20 SQ CM/< Routine 09/04/2025 10:40 AM EDT 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) Localized tissue (HCC) Other specified local infections of the skin and subcutaneous tissue WOUND TREATMENT Routine 08/30/2025 5:21 PM EDT Non-pressure chronic ulcer of skin of other sites with fat layer exposed (HCC) CT DEBRIDEMENT SUBCUTANEOUS TISSUE EA ADDL 20 SQ CM Routine 08/28/2025 9:00 AM EDT 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) Localized tissue (HCC) Other specified local infections of the skin and subcutaneous tissue CT DEBRIDEMENT SUBCUTANEOUS TISSUE EA ADDL 20 SQ CM Routine 08/28/2025 9:00 AM EDT 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) Localized tissue (HCC) Other specified local infections of the skin and subcutaneous tissue CT DEBRIDEMENT SUBCUTANEOUS TISSUE EA ADDL 20 SQ CM Routine 08/28/2025 9:00 AM EDT 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) Localized tissue (HCC) Other specified local infections of the skin and subcutaneous tissue CT DEBRIDEMENT SUBCUTANEOUS TISSUE EA ADDL 20 SQ CM Routine 08/28/2025 9:00 AM EDT 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) Localized tissue (HCC) Other specified local infections of the skin and subcutaneous tissue CT DEBRIDEMENT SUBCUTANEOUS TISSUE EA ADDL 20 SQ CM Routine 08/28/2025 9:00 AM EDT 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) Localized tissue (HCC) Other specified local infections of the skin and subcutaneous tissue CT DEBRIDEMENT SUBCUTANEOUS TISSUE 1ST 20 SQ CM/< Routine 08/28/2025 9:00 AM EDT 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) Localized tissue (HCC) Other specified local infections of the skin and subcutaneous tissue CT DEBRIDEMENT SUBCUTANEOUS TISSUE EA ADDL 20 SQ CM Routine 08/19/2025 3:40 PM EDT 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) Localized tissue (HCC) Other specified local infections of the skin and subcutaneous tissue CT DEBRIDEMENT SUBCUTANEOUS TISSUE EA ADDL 20 SQ CM Routine 08/19/2025 3:40 PM EDT 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) Localized tissue (HCC) Other specified local infections of the skin and subcutaneous tissue CT DEBRIDEMENT SUBCUTANEOUS TISSUE EA ADDL 20 SQ CM Routine 08/19/2025 3:40 PM EDT 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) Localized tissue (HCC) Other specified local infections of the skin and subcutaneous tissue CT DEBRIDEMENT SUBCUTANEOUS TISSUE EA ADDL 20 SQ CM Routine 08/19/2025 3:40 PM EDT 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) Localized tissue (HCC) Other specified local infections of the skin and subcutaneous tissue CT DEBRIDEMENT SUBCUTANEOUS TISSUE EA ADDL 20 SQ CM Routine 08/19/2025 3:40 PM EDT 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) Localized tissue (HCC) Other specified local infections of the skin and subcutaneous tissue CT DEBRIDEMENT SUBCUTANEOUS TISSUE EA ADDL 20 SQ CM Routine 08/19/2025 3:40 PM EDT 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) Localized tissue (HCC) Other specified local infections of the skin and subcutaneous tissue CT DEBRIDEMENT SUBCUTANEOUS TISSUE EA ADDL 20 SQ CM Routine 08/19/2025 3:40 PM EDT 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) Localized tissue (HCC) Other specified local infections of the skin and subcutaneous tissue CT DEBRIDEMENT SUBCUTANEOUS TISSUE EA ADDL 20 SQ CM Routine 08/19/2025 3:40 PM EDT 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) Localized tissue (HCC) Other specified local infections of the skin and subcutaneous tissue CT DEBRIDEMENT SUBCUTANEOUS TISSUE EA ADDL 20 SQ CM Routine 08/19/2025 3:40 PM EDT 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) Localized tissue (HCC) Other specified local infections of the skin and subcutaneous tissue CT DEBRIDEMENT SUBCUTANEOUS TISSUE 1ST 20 SQ CM/< Routine 08/19/2025 3:40 PM EDT 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) Localized tissue (HCC) Other specified local infections of the skin and subcutaneous tissue WOUND CULTURE + GRAM STAIN Routine 08/14/2025 4:51 PM EDT Other specified local infections of the skin and subcutaneous tissue CT DEBRIDEMENT SUBCUTANEOUS TISSUE EA ADDL 20 SQ CM Routine 08/12/2025 11:00 AM EDT 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) Localized tissue (HCC) Other specified local infections of the skin and subcutaneous tissue CT DEBRIDEMENT SUBCUTANEOUS TISSUE EA ADDL 20 SQ CM Routine 08/12/2025 11:00 AM EDT 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) Localized tissue (HCC) Other specified local infections of the skin and subcutaneous tissue CT DEBRIDEMENT SUBCUTANEOUS TISSUE EA ADDL 20 SQ CM Routine 08/12/2025 11:00 AM EDT 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) Localized tissue (HCC) Other specified local infections of the skin and subcutaneous tissue CT DEBRIDEMENT SUBCUTANEOUS TISSUE EA ADDL 20 SQ CM Routine 08/12/2025 11:00 AM EDT 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) Localized tissue (HCC) Other specified local infections of the skin and subcutaneous tissue CT DEBRIDEMENT SUBCUTANEOUS TISSUE EA ADDL 20 SQ CM Routine 08/12/2025 11:00 AM EDT 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) Localized tissue (HCC) Other specified local infections of the skin and subcutaneous tissue CT DEBRIDEMENT SUBCUTANEOUS TISSUE EA ADDL 20 SQ CM Routine 08/12/2025 11:00 AM EDT Non-pressure chronic ulcer 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) Localized tissue (HCC) Other specified local infections of the skin and subcutaneous tissue CT DEBRIDEMENT SUBCUTANEOUS TISSUE EA ADDL 20 SQ CM Routine 08/12/2025 11:00 AM EDT 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) Localized tissue (HCC) Other specified local infections of the skin and subcutaneous tissue CT DEBRIDEMENT SUBCUTANEOUS TISSUE EA ADDL 20 SQ CM Routine 08/12/2025 11:00 AM EDT 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) Localized tissue (HCC) Other specified local infections of the skin and subcutaneous tissue CT DEBRIDEMENT SUBCUTANEOUS TISSUE EA ADDL 20 SQ CM Routine 08/12/2025 11:00 AM EDT 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) Localized tissue (HCC) Other specified local infections of the skin and subcutaneous tissue CT DEBRIDEMENT SUBCUTANEOUS TISSUE EA ADDL 20 SQ CM Routine 08/12/2025 11:00 AM EDT 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) Localized tissue (HCC) Other specified local infections of the skin and subcutaneous tissue CT DEBRIDEMENT SUBCUTANEOUS TISSUE EA ADDL 20 SQ CM Routine 08/12/2025 11:00 AM EDT 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) Localized tissue (HCC) Other specified local infections of the skin and subcutaneous tissue CT DEBRIDEMENT SUBCUTANEOUS TISSUE 1ST 20 SQ CM/< Routine 08/12/2025 11:00 AM EDT 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) Localized tissue (HCC) Other specified local infections of the skin and subcutaneous tissue CT DEBRIDEMENT SUBCUTANEOUS TISSUE EA ADDL 20 SQ CM Routine 08/05/2025 1:10 PM EDT 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) Localized tissue (HCC) Other specified local infections of the skin and subcutaneous tissue CT DEBRIDEMENT SUBCUTANEOUS TISSUE EA ADDL 20 SQ CM Routine 08/05/2025 1:10 PM EDT 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) Localized tissue (HCC) Other specified local infections of the skin and subcutaneous tissue CT DEBRIDEMENT SUBCUTANEOUS TISSUE EA ADDL 20 SQ CM Routine 08/05/2025 1:10 PM EDT 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) Localized tissue (HCC) Other specified local infections of the skin and subcutaneous tissue CT DEBRIDEMENT SUBCUTANEOUS TISSUE EA ADDL 20 SQ CM Routine 08/05/2025 1:10 PM EDT 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) Localized tissue (HCC) Other specified local infections of the skin and subcutaneous tissue CT DEBRIDEMENT SUBCUTANEOUS TISSUE EA ADDL 20 SQ CM Routine 08/05/2025 1:10 PM EDT 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) Localized tissue (HCC) Other specified local infections of the skin and subcutaneous tissue CT DEBRIDEMENT SUBCUTANEOUS TISSUE EA ADDL 20 SQ CM Routine 08/05/2025 1:10 PM EDT 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) Localized tissue (HCC) Other specified local infections of the skin and subcutaneous tissue CT DEBRIDEMENT SUBCUTANEOUS TISSUE EA ADDL 20 SQ CM Routine 08/05/2025 1:10 PM EDT 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) Localized tissue (HCC) Other specified local infections of the skin and subcutaneous tissue CT DEBRIDEMENT SUBCUTANEOUS TISSUE EA ADDL 20 SQ CM Routine 08/05/2025 1:10 PM EDT 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) Localized tissue (HCC) Other specified local infections of the skin and subcutaneous tissue CT DEBRIDEMENT SUBCUTANEOUS TISSUE EA ADDL 20 SQ CM Routine 08/05/2025 1:10 PM EDT 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) Localized tissue (HCC) Other specified local infections of the skin and subcutaneous tissue CT DEBRIDEMENT SUBCUTANEOUS TISSUE EA ADDL 20 SQ CM Routine 08/05/2025 1:10 PM EDT 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) Localized tissue (HCC) Other specified local infections of the skin and subcutaneous tissue CT DEBRIDEMENT SUBCUTANEOUS TISSUE EA ADDL 20 SQ CM Routine 08/05/2025 1:10 PM EDT 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) Localized tissue (HCC) Other specified local infections of the skin and subcutaneous tissue CT DEBRIDEMENT SUBCUTANEOUS TISSUE EA ADDL 20 SQ CM Routine 08/05/2025 1:10 PM EDT 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) Localized tissue (HCC) Other specified local infections of the skin and subcutaneous tissue CT DEBRIDEMENT SUBCUTANEOUS TISSUE 1ST 20 SQ CM/< Routine 08/05/2025 1:10 PM EDT 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) Localized tissue (HCC) Other specified local infections of the skin and subcutaneous tissue from Last 3 Months Results * CT DEBRIDEMENT SUBCUTANEOUS TISSUE 1ST 20 SQ CM/<, CT DEBRIDEMENT SUBCUTANEOUS TISSUE EA ADDL 20SQ CM, CT DEBRIDEMENT SUBCUTANEOUS TISSUE EA ADDL 20 SQ CM, CT DEBRIDEMENT SUBCUTANEOUS TISSUE EA ADDL 20 SQ CM, CT DEBRIDEMENT SUBCUTANEOUS TISSUE EA ADDL 20 SQ CM, CT DEBRIDEMENT SUBCUTANEOUS TISSUE EA ADDL 20 SQ CM, CT DEBRIDEMENT SUBCUTANEOUS TISSUE EA ADDL 20 SQ CM, CT DEBRIDEMENT SUBCUTANEOUSTISSUE EA ADDL [address], [address] DEBRIDEMENT SUBCUTANEOUS TISSUE EA ADDL 20 SQ CM, CT DEBRIDEMENT SUBCUTANEOUS TISSUE EA ADDL [address], [address] DEBRIDEMENT SUBCUTANEOUS TISSUE EA ADDL 20 SQ CM, CT DEBRIDEMENT S UBCUTANEOUS TISSUE EA ADDL 20 SQ CM, CT DEBRIDEMENT SUBCUTANEOUS TISSUE EA ADDL 20 SQ [...] the correct patient, procedure, equipment, technical support manager, and site/side marked as required. [...] MD PROCEDURE/MINOR SURGICAL ORDERABLES Final Result * CT DEBRIDEMENT SUBCUTANEOUS TISSUE 1ST 20 SQ CM/<, CT DEBRIDEMENT SUBCUTANEOUS TISSUE EA ADDL 20SQ CM, CT DEBRIDEMENT SUBCUTANEOUS TISSUE EA ADDL [address], [address] DEBRIDEMENT SUBCUTANEOUS TISSUE EA ADDL 20 SQ CM, CT DEBRIDEMENT SUBCUTANEOUS TISSUE EA ADDL 20 SQ CM, CT DEBRIDEMENT SUBCUTANEOUS TISSUE EA ADDL [address], [address] DEBRIDEMENT SUBCUTANEOUS TISSUE EA ADDL 20 SQ CM, CT DEBRIDEMENT SUBCUTANEOUSTISSUE EA ADDL 20 SQ CM, CT DEBRIDEMENT SUBCUTANEOUS TISSUE EA ADDL 20 SQ CM, CT DEBRIDEMENT SUBCUTANEOUS TISSUE EA ADDL 20 SQ [...] the correct patient, procedure, equipment, technical support manager, and site/side marked as required. [...] MD PROCEDURE/MINOR SURGICAL ORDERABLES Final Result * CT DEBRIDEMENT SUBCUTANEOUS TISSUE 1ST 20 SQ CM/<, CT DEBRIDEMENT SUBCUTANEOUS TISSUE EA ADDL 20SQ CM, CT DEBRIDEMENT SUBCUTANEOUS TISSUE EA ADDL [address], [address] DEBRIDEMENT SUBCUTANEOUS TISSUE EA ADDL 20 SQ CM, CT DEBRIDEMENT SUBCUTANEOUS TISSUE EA ADDL 20 SQ CM, CT DEBRIDEMENT SUBCUTANEOUS TISSUE EA ADDL 20 SQ CM, CT DEBRIDEMENT SUBCUTANEOUS TISSUE EA ADDL 20 SQ CM, CT DEBRIDEMENT SUBCUTANEOUSTISSUE EA ADDL 20 SQ CM, CT DEBRIDEMENT SUBCUTANEOUS TISSUE EA ADDL [address], [address] DEBRIDEMENT SUBCUTANEOUS TISSUE EA ADDL 20 SQ CM, CT DEBRIDEMENT SUBCUTANEOUS TISSUE EA ADDL 20 SQ CM, CT DEBRIDEMENT S UBCUTANEOUS TISSUE EA ADDL 20 [...] the correct patient, procedure, equipment, technical support manager, and site/side marked as required. [...] MD PROCEDURE/MINOR SURGICAL ORDERABLES Final Result * CT DEBRIDEMENT SUBCUTANEOUS TISSUE 1ST 20 SQ CM/<, CT DEBRIDEMENT SUBCUTANEOUS TISSUE EA ADDL 20SQ CM, CT DEBRIDEMENT SUBCUTANEOUS TISSUE EA ADDL [address], [address] DEBRIDEMENT SUBCUTANEOUS TISSUE EA ADDL 20 SQ CM, CT DEBRIDEMENT SUBCUTANEOUS TISSUE EA ADDL 20 SQ CM, CT DEBRIDEMENT SUBCUTANEOUS TISSUE EA ADDL 20 SQ [...] the correct patient, procedure, equipment, technical support manager, and site/side marked as required. [...] NURSING PATHWAYS ORDERABL ES Final Result * CT DEBRIDEMENT SUBCUTANEOUS TISSUE 1ST 20 SQ CM/<, CT DEBRIDEMENT SUBCUTANEOUS TISSUE EA ADDL 20SQ CM, CT DEBRIDEMENT SUBCUTANEOUS TISSUE EA ADDL [address], [address] DEBRIDEMENT SUBCUTANEOUS TISSUE EA ADDL 20 SQ CM, CT DEBRIDEMENT SUBCUTANEOUS TISSUE EA ADDL 20 SQ CM, CT DEBRIDEMENT SUBCUTANEOUS TISSUE EA ADDL 20 SQ [...] the correct patient, procedure, equipment, technical support manager, and site/side marked as required. [...] MD PROCEDURE/MINOR SURGICAL ORDERABLES Final Result * CT DEBRIDEMENT SUBCUTANEOUS TISSUE 1ST 20 SQ CM/<, CT DEBRIDEMENT SUBCUTANEOUS TISSUE EA ADDL 20SQ CM, CT DEBRIDEMENT SUBCUTANEOUS TISSUE EA ADDL [address], [address] DEBRIDEMENT SUBCUTANEOUS TISSUE EA ADDL [address], [address] DEBRIDEMENT SUBCUTANEOUS TISSUE EA ADDL 20 SQ CM, CT DEBRIDEMENT SUBCUTANEOUS TISSUE EA ADDL 20 SQ CM, CT DEBRIDEMENT SUBCUTANEOUS TISSUE EA ADDL 20 SQ CM, CT DEBRIDEMENT SUBCUTANEOUSTISSUE EA ADDL 20 SQ CM, CT DEBRIDEMENT SUBCUTANEOUS TISSUE EA ADDL 20 SQ CM, CT DEBRIDEMENT SUBCUTANEOUS TISSUE EA ADDL 20 SQ [...] the correct patient, procedure, equipment, technical support manager, and site/side marked as required. [...] Growth Streptococcus agalactiae(A) 08/17/2025 2:03 PM EDT [facility] Result Light Growth Corynebacterium species(A) 08/17/2025 2:03 PM EDT [facility] Result Light Growth Corynebacterium species(A) 08/17/2025 2:03 PM EDT [facility] Comment:Second [place] Type Gram Stain Result No organisms seen 08/17/2025 2:03 PM EDT [facility] Gram Stain Result Few WBCs 08/17/2025 2:03 PM EDT [facility] Wound INGUINAL REGION STRUCTURE / Unknown 08/14/2025 4:51 PM EDT 08/14/2025 5:42 PM EDT Narrative [facility] - 08/17/2025 2:03 PM EDT Mixed growth suggestive of colonization or indigenous silvestre us Sukhdev Bazan Jr., MD MICROBIOLOGY - GENERAL OR DERABLES Final Result [facility] [address] [phone] * CT DEBRIDEMENT SUBCUTANEOUS TISSUE 1ST 20 SQ CM/<, CT DEBRIDEMENT SUBCUTANEOUS TISSUE EA ADDL 20SQ CM, CT DEBRIDEMENT SUBCUTANEOUS TISSUE EA ADDL 20 SQ CM, CT DEBRIDEMENT SUBCUTANEOUS TISSUE EA ADDL [address], [address] DEBRIDEMENT SUBCUTANEOUS TISSUE EA ADDL 20 SQ CM, CT DEBRIDEMENT SUBCUTANEOUS TISSUE EA ADDL 20 SQ CM, CT DEBRIDEMENT SUBCUTANEOUS TISSUE EA ADDL 20 SQ CM, CT DEBRIDEMENT SUBCUTANEOUSTISSUE EA ADDL 20 SQ CM, CT DEBRIDEMENT SUBCUTANEOUS TISSUE EA ADDL [address], [address] DEBRIDEMENT SUBCUTANEOUS TISSUE EA ADDL 20 SQ CM, CT DEBRIDEMENT SUBCUTANEOUS TISSUE EA ADDL 20 SQ CM, CT DEBRIDEMENT S UBCUTANEOUS TISSUE EA ADDL 20 [...] the correct patient, procedure, equipment, technical support manager, and site/side marked as required. [...] MD PROCEDURE/MINOR SURGICAL ORDERABLES Final Result * CT DEBRIDEMENT SUBCUTANEOUS TISSUE 1ST 20 SQ CM/<, CT DEBRIDEMENT SUBCUTANEOUS TISSUE EA ADDL 20SQ CM, CT DEBRIDEMENT SUBCUTANEOUS TISSUE EA ADDL [address], [address] DEBRIDEMENT SUBCUTANEOUS TISSUE EA ADDL [address], [address] DEBRIDEMENT SUBCUTANEOUS TISSUE EA ADDL 20 SQ CM, CT DEBRIDEMENT SUBCUTANEOUS TISSUE EA ADDL 20 SQ CM, CT DEBRIDEMENT SUBCUTANEOUS TISSUE EA ADDL 20 SQ CM, CT DEBRIDEMENT SUBCUTANEOUSTISSUE EA ADDL 20 SQ CM, CT DEBRIDEMENT SUBCUTANEOUS TISSUE EA ADDL 20 SQ CM, CT DEBRIDEMENT SUBCUTANEOUS TISSUE EA ADDL [address], [address] DEBRIDEMENT SUBCUTANEOUS TISSUE EA ADDL 20 SQ CM, CT DEBRIDEMENT S UBCUTANEOUS TISSUE EA ADDL 20 SQ CM, CT DEBRIDEMENT SUBCUTANEOUS TISSUE EA ADDL 20 SQ [...] the correct patient, procedure, equipment, technical support manager, and site/side marked as required. [...] Final Result from Last 3 Months Insurance [facility] [place] Care Teams Security Supervisor Relationship Specialty Start Date End Date Yenny Dhillon, GLORIA [address] [place] [address] PCP - General Nurse Practitioner 03/13/24
--- NOTE | 2025-09-26 21:30 | HMH.EDGENADL ---
Discharge Plan Disposition Patient Disposition: Home, Self-Care Condition: Good Prescriptions Prescriptions: No Action (DME) Blood Glucose Test Strip See Rx Instructions .Route Qty: 50 3RF Rx Instructions: BID cholecalciferol (vitamin D3) 125 mcg (5,000 unit) tablet 125 mcg PO DAILY Patient Comments: TAKE 1 TABLET BY MOUTH ONCE DAILY folic acid 1 mg tablet 1 mg PO DAILY Myrbetriq 25 mg tablet extended release 24 hr 25 mg PO DAILY Ozempic 0.25 mg or 0.5 mg (2 mg/3 mL) pen injector 0.25 mg SQ WEEKLY lamotrigine 100 mg tablet extended release 24hr 100 mg PO DAILY Patient Comments: TAKE 1 TABLET BY MOUTH ONCE DAILY AT NIGHT AT BEDTIME DIRECTED metoprolol succinate [Toprol XL] 100 mg tablet extended release 24 hr 100 mg PO DAILY Qty: 30 6RF (DME) blood-glucose meter [FreeStyle Lite Meter] Kit See Rx Instructions .ROUTE .MEDSUPPLY Qty: 1 Rx Instructions: As directed alcohol swabs [Easy Touch Alcohol Prep Pads] Pads, Medicated topical (DME) lancets [FreeStyle Lancets] 28 gauge misc See Rx Instructions .ROUTE .MEDSUPPLY Qty: 100 Rx Instructions: As directed albuterol sulfate 90 mcg/actuation HFA aerosol inhaler 2 inh IH Q6H PRN (Reason: shortness of breath or wheezing) 90 Days Qty: 8.5 3RF budesonide-formoterol [Symbicort] 160-4.5 mcg/actuation HFA aerosol inhaler 2 puff IH BID 90 Days Qty: 10.2 3RF fluticasone propionate [Flonase Allergy Relief] 50 mcg/actuation spray,suspension 2 spray NS DAILY PRN (Reason: allergy symptoms) 90 Days Qty: 16 3RF Rx Instructions: administer into each nostril montelukast 10 mg tablet 10 mg PO QPM 90 Days Qty: 90 2RF loratadine 10 mg tablet 10 mg PO DAILY Patient Comments: TAKE 1 TABLET BY MOUTH ONCE DAILY ipratropium-albuterol 0.5 mg-3 mg(2.5 mg base)/3 mL solution for nebulization 3 ml INHALATION Q6H PRN (Reason: shortness of breath or wheezing) Qty: 180 3RF levofloxacin 750 mg tablet 750 mg PO DAILY 5 Days Qty: 5 0RF cefdinir 300 mg capsule 300 mg PO BID 5 Days Qty: 10 0RF Linzess 72 mcg capsule 72 mcg PO DAILY Patient Comments: TAKE 1 CAPSULE BY MOUTH ONCE DAILY FOR CONSTIPATION buspirone 15 mg tablet 15 mg PO TIDP PRN (Reason: Anxiety) Patient Comments: TAKE 1 TABLET BY MOUTH THREE TIMES DAILY NEEDED rosuvastatin 20 mg tablet 20 mg PO HS Patient Comments: TAKE 1 TABLET BY MOUTH ONCE DAILY duloxetine 60 mg capsule,delayed release(DR/EC) 60 mg PO DAILY Patient Comments: TAKE 1 CAPSULE BY MOUTH ONCE DAILY DIRECTED metformin 500 mg tablet 500 mg PO DAILY Rx Instructions: Take 1 tablet by mouth twice daily Referrals Follow up/Referrals: Yenny Dhillon APRN [Primary Care Provider, Medical] - See instructions Activity Restrictions/Add. Instructions Additional Instructions/Restrictions: You were evaluated in the emergency department today. Please follow-up closely outpatient with your urologist as well as with your primary care provider. Return to the emergency department for new or worsening symptoms. Clinical Impressions Clinical Impression: Complication of Montalvo catheter Instructions Patient Instructions: How to Care for Your Female Montalvo Catheter Print Language Print Language: Maltese Discharge ED Provider: Suzan Tucker General Adult HPI General Chief complaint: PAIN Stated complaint: cath needs changed Time Seen by Provider: 09/26/25 20:52 Mode of Arrival: Ambulatory Source of Information: Patient Description of Symptoms (Recalled from ER Triage Doc. by RN): patient presents requesting a catheter exchange. her montalvo bag has a hole in it. 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 She has had an indwelling Montalvo catheter ever since her issues with necrotizing soft tissue infection. She is awaiting outpatient follow-up with urology in [place]. She notes that her Montalvo bag has a hole in it and has been leaking. No other concerns or complaints at this fevers, nausea, vomiting, abdominal pain, or other concerns. Related Data Home Medications ?Medication ?Instructions ?Recorded ?Confirmed folic acid 1 mg tablet 1 mg PO DAILY 07/07/23 08/22/25 cholecalciferol (vitamin D3) 125 125 mcg PO DAILY 08/09/23 08/22/25 mcg (5,000 unit) tablet mirabegron 25 mg tablet,extended 25 mg PO DAILY 02/08/24 08/22/25 release 24 hr (Myrbetriq) buspirone 15 mg tablet 15 mg PO TIDP PRN Anxiety 09/05/24 08/22/25 duloxetine 60 mg capsule,delayed 60 mg PO DAILY 09/05/24 08/22/25 release linaclotide 72 mcg capsule 72 mcg PO DAILY 09/05/24 08/22/25 (Linzess) metformin 500 mg tablet 500 mg PO DAILY 09/05/24 08/22/25 rosuvastatin 20 mg tablet 20 mg PO HS 09/05/24 08/22/25 semaglutide 0.25 mg or 0.5 mg (2 0.25 mg SQ WEEKLY 03/27/25 08/22/25 mg/3 mL) subcutaneous pen injector (Ozempic) loratadine 10 mg tablet 10 mg PO DAILY 04/25/25 08/22/25 lamotrigine 100 mg tablet,extended 100 mg PO DAILY 06/25/25 08/22/25 release 24 hr alcohol swabs (Easy Touch Alcohol pad topical 08/22/25 08/22/25 Prep Pads) blood-glucose meter (FreeStyle #1 ea 08/22/25 08/22/25 Lite Meter kit) lancets 28 gauge (FreeStyle #100 ea 08/22/25 08/22/25 Lancets) Previous Rx's ?Medication ?Instructions ?Recorded blood sugar diagnostic (Blood #50 ea 04/28/22 Glucose Test strips) albuterol sulfate 90 mcg/actuation 2 inh inhalation Q6H PRN shortness 06/15/22 aerosol inhaler of breath or wheezing 90 days #8.5 grams ipratropium 0.5 mg-albuterol 3 mg 3 ml inhalation Q6H PRN shortness 11/28/23 (2.5 mg base)/3 mL nebulization of breath or wheezing #180 mL soln budesonide-formoterol HFA 160 2 puff inhalation BID 90 days 05/02/25 mcg-4.5 mcg/actuation aerosol #10.2 grams inhaler (Symbicort) fluticasone propionate 50 2 spray intranasal DAILY PRN 06/26/25 mcg/actuation nasal allergy symptoms 90 days #16 grams spray,suspension (Flonase Allergy Relief) montelukast 10 mg tablet 10 mg PO QPM 90 days #90 tabs 05/02/25 metoprolol succinate 100 mg 100 mg PO DAILY #30 tabs 06/25/25 tablet,extended release 24 hr (Toprol XL) levofloxacin 750 mg tablet 750 mg PO DAILY 5 days #5 tabs 08/11/25 cefdinir 300 mg capsule 300 mg PO BID 5 days #10 caps 08/20/25 Allergies Allergy/AdvReac Type Severity Reaction Status Date / Time bupropion (From Wellbutrin) Allergy Severe Anaphylaxis Verified 08/22/25 14:20 aspirin (ASPIRIN) Allergy Mild Unknown Verified 08/22/25 14:20 allergy reaction doxycycline (DOXYCYCLINE) Allergy Mild Unknown Verified 08/22/25 14:20 allergy reaction diazepam (From Valium) Allergy Unknown Verified 08/22/25 14:20 allergy reaction Penicillins Allergy Unknown Verified 08/22/25 14:20 allergy reaction alprazolam (From Xanax) AdvReac Severe Agitated Verified 08/22/25 14:20 PFS PFS Disclaimer: The information contained in this section may have been updated after the patient was seen, as this information can be updated by other users. Medical History Respiratory failure with hypoxia Frequent PVCs Shortness of breath Snoring History of absence seizures Altered awareness, transient Hidradenitis Wound dehiscence Pharyngitis Abnormal electrocardiogram [ECG] [EKG] BMI 50.0-59.9, adult Bronchitis Diabetes mellitus Hyperlipidemia Allergic rhinitis Family history of emphysema Asthma Family history of asthma Tobacco abuse counseling Tobacco abuse disorder Dyspnea on exertion Smoking greater than 30 pack years Seasonal allergic rhinitis Moderate persistent asthma Morbid obesity HTN (hypertension), benign Hidradenitis suppurativa Surgical History History of carpal tunnel surgery Hx of cholecystectomy History of tonsillectomy History of hysterectomy Family History Other Cancer Coronary artery disease FHx: mental illness Heart attack Hyperlipidemia Hypertension No significant family history Stroke Social History Smoking Status: Current every day smoker tobacco type: cigarettes packs per day: 1 second hand exposure: Yes alcohol intake: never substance use type: marijuana current occupational status: unemployed Travel in the last 8 weeks?: None housing: house Have you lived/traveled outside [place] in past 30 days?: No Contact w/someone who lives/traveled outside [place] past 30 days?: No Exposure to someone with infectious disease in past 14 days?: No Do you have a fever (greater than 100.4 F or 38 C)?: No Have you tested positive for COVID-19?: No Exposed to someone with COVID-19 in past 14 days?: No Do you have a sore throat?: No Do you have a cough?: No Do you have any weakness?: No Do you have any diarrhea?: No Are you experiencing any unusual bleeding?: No Do you have any muscle aches/pain?: No Do you have any abdominal pain?: No Are you experiencing loss of taste or smell?: No Other Medical History Have you received the Flu Vaccine for this season: No Have you received the Pneumonia Vaccine: No ROS Obtained: Yes All systems reviewed & no additional complaints except as documented Physical Exam General General appearance: alert and in no apparent distress Head Head exam: atraumatic and normocephalic Eye Eye exam: Present normal appearance, PERRL and EOMI ENT ENT exam: Present normal exam, normal oropharynx, mucous membranes moist and normal external ear exam Neck Neck exam: Present normal inspection, full ROM and trachea midline; Absent tenderness Chest Chest inspection: Present normal inspection and symmetric chest wall rise; Absent tenderness Respiratory Respiratory exam: Present normal lung sounds bilaterally; Absent respiratory distress, wheezes, stridor or accessory muscle use Cardiovascular Cardiovascular exam: Present regular rate and normal rhythm Abdominal Exam Abdominal exam: Present soft; Absent distention, tenderness or guarding Extremities Exam Extremities exam: Present normal inspection, full ROM and normal capillary refill; Absent tenderness or edema Back Exam Back exam: Present normal inspection and full ROM; Absent tenderness Neurological Exam Neurological exam: Present alert, oriented X3, CN II-XII intact and normal gait; Absent motor sensory deficit Psychiatric Psychiatric exam: Present normal affect and normal mood Skin Skin exam: Present warm and dry Medical Decision Making Medical Records Medical records reviewed: Yes I reviewed the patient's medical records. Screening: Per USPSTF and CDC recommendations, given the prevalence of disease in our region, it is our hospital?s policy to screen for HIV and viral Hepatitis for all patients aged 18 and over and those with ongoing risk factors. Cristian Inquiry Pt receiving controlled substance: No Vital Signs: 09/26/25 20:37 09/26/25 21:36 Temperature 98.5 F 98.5 F Temperature Source Oral Pulse Rate 94 H Pulse Rate [Right Radial] 112 H Respiratory Rate 20 18 Blood Pressure 142/84 H Blood Pressure [Right Arm] 137/90 Blood Pressure Mean [Right Arm] 105 Blood Pressure Source [Right Arm] Automatic Cuff Blood Pressure Position [Right Arm] Sitting 02 Sat by Pulse Oximetry 100 Oxygen Delivery Method Room Air Room Air Lab Data Lab results reviewed: Yes I reviewed the patient's lab results. Medical Decision Narrative: In summary, this patient is a 50-year-old presenting to the Emergency Department for evaluation of leaking Montalvo catheter bag. Differential diagnoses considered include but are not limited to Montalvo catheter bag issue, catheter displacement. Ruling out the most morbid conditions drove assessment. It should be noted patient's history includes prior necrotizing soft tissue infection with chronic indwelling Montalvo catheter, JOSEP, obesity which likely are not at goal therapy. This complicates all aspects of care by increasing patient's risk for morbidity. I reviewed patient's past medical records and noted prior evaluations in the past for complicated UTI with indwelling Montalvo catheter as well as for necrotizing soft tissue infection. On exam, the patient is lying in bed in no distress with no concerns or complaints except that her Montalvo catheter bag is leaking. Abdominal exam is benign. Vitals are reassuring. Given that she has no concerns or issues otherwise, I do not feel that labs or urine would be helpful at this time. Her Montalvo catheter was replaced, which she tolerated well with drainage of clear yellow urine. Given this, I feel that she is appropriate for discharge with continued close outpatient follow-up. She already has follow-up with urology scheduled in [place]. Strict return precautions were given Critical Care Critical Care Time Critical Care Time: No
[2025-09-26 21:36] VITALS: BP 142/84; PULSE 94; RESP 18; TEMP 36.9; O2SAT 100
== END 2025-09-26 21:39 | disposition home or self-care (01) ==
PROVIDERS: Emergency Provider Emergency Medicine; PCP Nurse Practitioner Family
DX: T83.091A Other mechanical complication of indwelling urethral catheter, initial encounter (principal)
CPT/HCPCS: 51702; 99282; 99283